=== PATIENT | female | born 1970 | race Caucasian/White ===

== ENCOUNTER 2019-02-14 11:20 | Emergency (ER) | payer SELFPAY ==
[2019-02-14] MEDS ORDERED: NA CHLORIDE 0.9% 1,000 ML ONE (12:09)
--- NOTE | 2019-02-14 12:15 | RAD REPORT ---
EXAM DESCRIPTION: CT - Head Brain Wo Cont - 02/14/2019 12:06 pm CLINICAL HISTORY: Transient alteration of awareness COMPARISON: September 2017 TECHNIQUE: Axial 5 mm thick images of the head were obtained without IV contrast. All CT scans are performed using dose optimization technique as appropriate and may include automated exposure control or mA/KV adjustment according to patient size. FINDINGS: No intracranial hemorrhage, mass, edema or shift of mid-line structures. No acute infarcti on changes seen. No abnormal extra-axial fluid collections. Ventricles are normal. Mastoid air cells and visualized portions of the paranasal sinuses are clear. No acute bony findings. IMPRESSION: Negative non-contrast CT head examination for acute finding No change from prior imaging.
[2019-02-14 12:18] LABS: Absolute Lymphocytes (CBC) 1.9 K/uL (0.7-4.9); Absolute Monocytes 0.4 K/uL (0.1-1.3); Basophils % 0.7 % (0-1.3); Eosinophils % 1.8 % (0-4.4); Hematocrit 38.2 % (36.0-45.0); Lymphocytes % 25.8 % (15.3-44.8); MPV 7.1 fL (7.6-11.3); RBC Red Blood Cell Count 4.34 M/uL (3.86-4.86)
[2019-02-14 12:19] LABS: Protime INR 0.98
[2019-02-14 12:37] LABS: ALT/SGPT 18 U/L (12-78); AST/SGOT 12 U/L (15-37); Albumin 3.9 g/dL (3.4-5.0); Alkaline Phosphatase 83 U/L (45-117); BUN Blood Urea Nitrogen 8 mg/dL (7-18); Bicarbonate 26 mmol/L (21-32); Bilirubin Direct < 0.1 mg/dL (0-0.2); Bilirubin Total 0.2 mg/dL (0.2-1.0); Glucose Level 95 mg/dL (74-106); Lipase 163 U/L (73-393); Magnesium 2.2 mg/dL (1.8-2.4); NT PRO-BNP 9 pg/mL (<125); Protein, Total 7.9 g/dL (6.4-8.2); Sodium Level 147 mmol/L (136-145); Troponin (Emerg Dept Use Only) < 0.02 ng/mL (0.0-0.045)
[2019-02-14 12:40] LABS: Urine Blood NEGATIVE (NEG); Urine Glucose NEGATIVE (NEG); Urine Protein NEGATIVE (NEG)
--- NOTE | 2019-02-14 13:08 | RAD REPORT ---
EXAM DESCRIPTION: RAD - Chest Single View - 02/14/2019 1:01 pm CLINICAL HISTORY: COUGH Chest pain. COMPARISON: Chest Single View dated 09/24/2017; CHEST SINGLE VIEW dated 06/29/2012; CHEST SINGLE VIEW d ated 12/04/2011; CHEST SINGLE VIEW dated 08/26/2011 FINDINGS: Portable technique limits examination quality. The lungs are underinflated but grossly clear. The heart is normal in size. No displaced fractures. IMPRESSION: Underinflated lungs.
[2019-02-14 13:10] LABS: Barbiturates NEGATIVE (NEGATIVE); Benzodiazepines NEGATIVE (NEGATIVE); Cocaine NEGATIVE (NEGATIVE); METHAMPHETAM NEGATIVE (NEGATIVE); Methadone NEGATIVE (NEGATIVE); Opiates NEGATIVE (NEGATIVE); Phencyclidine NEGATIVE (NEGATIVE); THC Cannibis NEGATIVE (NEGATIVE)
--- NOTE | 2019-02-14 13:26 | EDPHYS ---
Physician Documentation [facility] Name: Tiffany Quinn Age: 48 yrs Sex: Female : 1970 Arrival Date: 02/14/2019 Time: 11:21 Bed 3 Private MD: ED Physician Bill Palm HPI: 02/14 11:49 This 48 yrs old Female presents to ER via Wheelchair with complaints of Psych jo Problem. 11:49 The patient presents to the emergency department with anxiety, depression, psychosis, jo has delusions. Onset: The symptoms/episode began/occurred this morning, today. Past psychiatric history: Prior diagnosis: schizophrenia, Psychiatric medications include: lithium , Risperdal, benadryl. Associated signs and symptoms: The patient has no apparent associated signs or symptoms. Severity of symptoms: At their worst the symptoms were mild moderate in the emergency department the symptoms are unchanged. The patient has not experienced similar symptoms in the past. 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 tw2 Historical: - Allergies: 11:38 Phenergan; iw 11:38 Stadol; iw - Home Meds: 11:58 Banophen 50 mg oral cap nightly [Active]; lithium carbonate 450 mg Oral TbER 1 tab 2 iw times per day [Active]; risperidone 4 mg oral tab nightly [Active]; - PMHx: 11:38 ADD/ADHD; Migraines; PSYCH PROBLEMS; Schizophrenia; iw - Immunization history:: Adult Immunizations unknown. - Social history:: Smoking status: unknown. - Ebola Screening: : Patient negative for fever greater than or equal to 101.5 degrees Fahrenheit, and additional compatible Ebola Virus Disease symptoms Patient denies exposure to infectious person Patient denies travel to an Ebola-affected area in the 21 days before illness onset No symptoms or risks identified at this time. ROS: 11:51 Constitutional: Negative for fever, chills, and weight loss, Eyes: Negative for injury, jo pain, redness, and discharge, ENT: Negative for injury, pain, and discharge, Neck: Negative for injury, pain, and swelling, Cardiovascular: Negative for chest pain, palpitations, and edema, Respiratory: Negative for shortness of breath, cough, wheezing, and pleuritic chest pain, Abdomen/GI: Negative for abdominal pain, nausea, vomiting, diarrhea, and constipation, Back: Negative for injury and pain, : Negative for injury, bleeding, discharge, and swelling, MS/Extremity: Negative for injury and deformity, Skin: Negative for injury, rash, and discoloration, Psych: Negative for depression, anxiety, suicide ideation, homicidal ideation, and hallucinations, Allergy/Immunology: Negative for hives, rash, and allergies, Endocrine: Negative for neck swelling, polydipsia, polyuria, polyphagia, and marked weight changes, Hematologic/Lymphatic: Negative for swollen nodes, abnormal bleeding, and unusual bruising. 11:51 Neuro: Positive for altered mental status, weakness. Exam: 11:51 Constitutional: This is a well developed, well nourished patient who is awake, alert, jo and in no acute distress. Head/Face: Normocephalic, atraumatic. Eyes: Pupils equal round and reactive to light, extra-ocular motions intact. Lids and lashes normal. Conjunctiva and sclera are non-icteric and not injected. Cornea within normal limits. Periorbital areas with no swelling, redness, or edema. ENT: Nares patent. No nasal discharge, no septal abnormalities noted. Tympanic membranes are normal and external auditory canals are clear. Oropharynx with no redness, swelling, or masses, exudates, or evidence of obstruction, uvula midline. Mucous membranes moist. Neck: Trachea midline, no thyromegaly or masses palpated, and no cervical lymphadenopathy. Supple, full range of motion without nuchal rigidity, or vertebral point tenderness. No Meningismus. Chest/axilla: Normal chest wall appearance and motion. Nontender with no deformity. No lesions are appreciated. Cardiovascular: Regular rate and rhythm with a normal S1 and S2. No gallops, murmurs, or rubs. Normal PMI, no JVD. No pulse deficits. Respiratory: Lungs have equal breath sounds bilaterally, clear to auscultation and percussion. No rales, rhonchi or wheezes noted. No increased work of breathing, no retractions or nasal flaring. Abdomen/GI: Soft, non-tender, with normal bowel sounds. No distension or tympany. No guarding or rebound. No evidence of tenderness throughout. Back: No spinal tenderness. No costovertebral tenderness. Full range of motion. Female : Normal external genitalia. Skin: Warm, dry with normal turgor. Normal color with no rashes, no lesions, and no evidence of cellulitis. MS/ Extremity: Pulses equal, no cyanosis. Neurovascular intact. Full, normal range of motion. Psych: Awake, alert, with orientation to person, place and time. Behavior, mood, and affect are within normal limits. 11:51 Neuro: Orientation: to person, place, Not oriented to time, situation, Mentation: slow to respond, confused, Memory: unable to test, Cranial nerves: grossly normal, is grossly normal based on the patient's age, no acute changes, Motor: is normal, Sensation: no acute changes, Gait: not tested. seizure activity, is not displayed by the patient. Vital Signs: 11:48 BP 124 / 76; Pulse 90; Resp 16 S; Temp 98.0; Pulse Ox 98% on R/A; iw 12:50 BP 107 / 76; Pulse 99; Resp 17; Pulse Ox 98% on R/A; tw2 13:50 BP 96 / 66; Pulse 72; Resp 17; Pulse Ox 98% on R/A; tw2 14:42 BP 92 / 62; Pulse 77; Resp 17; Pulse Ox 99% on R/A; tw2 16:02 BP 101 / 65; Pulse 72; Resp 17; Pulse Ox 99% on R/A; tw2 MDM: 11:35 Patient medically screened. [facility] 11:52 Data reviewed: vital signs, nurses notes, lab test result(s), EKG, radiologic studies, [facility] CT scan, plain films. 02/14 11:49 Order name: Basic Metabolic Panel; Complete Time: 13:20 [facility] 02/14 11:49 Order name: CBC with Diff; Complete Time: 13:20 [facility] 02/14 11:49 Order name: LFT's; Complete Time: 13:20 [facility] 02/14 11:49 Order name: Magnesium; Complete Time: 13:20 [facility] 02/14 11:49 Order name: NT PRO-BNP; Complete Time: 13:20 [facility] 02/14 11:49 Order name: PT-INR; Complete Time: 13:20 [facility] 02/14 11:49 Order name: Troponin (emerg Dept Use Only); Complete Time: 13:20 [facility] 02/14 11:49 Order name: Lipase; Complete Time: 13:20 [facility] 02/14 11:49 Order name: Blood Culture Adult (2) 02/14 11:49 Order name: Urine Culture 02/14 11:49 Order name: [place]; Complete Time: 13:20 [facility] 02/14 12:09 Order name: Acetaminophen; Complete Time: 13:20 [facility] 02/14 12:09 Order name: ETOH Level; Complete Time: 13:20 02/14 12:09 Order name: Ptt, Activated; Complete Time: 13:20 [facility] 02/14 11:49 Order name: XRAY Chest (1 view); Complete Time: 13:20 [facility] 02/14 11:49 Order name: EKG; Complete Time: 11:50 [facility] 02/14 11:49 Order name: Cardiac monitoring; Complete Time: 13:57 [facility] 02/14 11:49 Order name: EKG - Nurse/Tech; Complete Time: 13:57 [facility] 02/14 11:49 Order name: IV Saline Lock; Complete Time: 13:57 02/14 11:49 Order name: Labs collected and sent; Complete Time: 13:57 [facility] 02/14 11:49 Order name: CT Head Brain wo Cont; Complete Time: 13:20 [facility] 02/14 12:09 Order name: Salicylate; Complete Time: 13:20 [facility] 02/14 12:09 Order name: Urine Drug Screen; Complete Time: 13:20 [facility] 02/14 12:12 Order name: Urine Dipstick--Ancillary (enter results); Complete Time: 13:20 02/14 12:12 Order name: Urine --Ancillary (enter results); Complete Time: 13:20 02/14 11:49 Order name: O2 Per Protocol; Complete Time: 13:57 [facility] 02/14 11:49 Order name: O2 Sat Monitoring; Complete Time: 13:59 [facility] 02/14 11:49 Order name: Urine Dipstick-Ancillary (obtain specimen); Complete Time: 13:58 [facility] 02/14 13:58 Order name: Straight Cath - Urine; Complete Time: 13:58 tw2 Administered Medications: 12:00 Drug: NS 0.9% 1000 ml Route: IV; Rate: 125 ml/hr; Site: right jugular; tw2 17:10 Follow up: Response: No adverse reaction; IV Status: Order to discontinue infusion tw2 13:19 Drug: Ativan 1 mg Route: IVP; Site: right jugular; tw2 14:20 Follow up: Response: No adverse reaction; Anxiety decreased tw2 14:29 Follow up: Response: No adverse reaction iw 13:50 Drug: Thiamine 100 mg Route: IV; Rate: bolus; Site: right jugular; tw2 13:55 Follow up: Response: No adverse reaction; IV Status: Completed infusion tw2 14:10 Drug: Banana Bag - (NS 0.9% 1000 ml, foLIC Acid 1 mg, Thiamine 100 mg, Multivitamin 1 tw2 amp) Route: IV; Rate: 125 ml/hr; Site: right jugular; 17:10 Follow up: Response: No adverse reaction; IV Status: Order to discontinue infusion tw2 15:22 Drug: Ativan 1 mg Route: IVP; Site: right jugular; tw2 16:00 Follow up: Response: No adverse reaction; Anxiety decreased tw2 Disposition: 02/14/19 14:53 Discharged to Home. Impression: Alcohol abuse with intoxication, Altered mental status, unspecified, Schizophrenia. - Condition is Stable. - Discharge Instructions: Alcohol Intoxication, Confusion, Schizophrenia, Alcohol Intoxication, [id number], Alcohol Abuse and Nutrition. - Medication Reconciliation Form, Thank You Letter, Antibiotic Education, Prescription Opioid Use form. - Follow up: Private Physician; When: 1 - 2 days; Reason: Recheck today's complaints, Continuance of care, Re-evaluation by your physician. - Problem is new. - Symptoms have improved. Signatures: Dispatcher [employer] EDMS Bill Palm MD MD cha Williams, Irene, RN RN iw Angelita Jain RN RN tw2 Corrections: (The following items were deleted from the chart) 14:50 13:26 Hospitalization Ordered by Karmen Hoffmann MD for Observation. Preliminary diagnosis jo is Altered mental status, unspecified; Schizophrenia; Alcohol abuse with intoxication. Bed requested for Telemetry/MedSurg (observation). Status is Observation. Condition is Fair. Problem is new. Symptoms have improved. UTI on Admission? No. jo 17:22 14:53 02/14/2019 14:53 Discharged to Home. Impression: Alcohol abuse with intoxication; tw2 Altered mental status, unspecified; Schizophrenia. Condition is Stable. Discharge Instructions: Alcohol Intoxication, Confusion, Schizophrenia, Alcohol Intoxication, [id number], Alcohol Abuse and Nutrition. Forms are Medication Reconciliation Form, Thank You Letter, Antibiotic Education, Prescription Opioid Use. Follow up: Private Physician; When: 1 - 2 days; Reason: Recheck today's complaints, Continuance of care, Re-evaluation by your physician. Problem is new. Symptoms have improved. jo
--- NOTE | 2019-02-14 13:26 | ER ---
Nurse's Notes [facility] Name: Tiffany Quinn Age: 48 yrs Sex: Female : 1970 Arrival Date: 02/14/2019 Time: 11:21 Bed 3 Private MD: Diagnosis: Alcohol abuse with intoxication;Altered mental status, unspecified;Schizophrenia Presentation: 02/14 11:32 Presenting complaint: Mother states: pt defecated on herself and isn't talking, pt iw arrives to ER via private vehicle, assisted out of vehicle, pt able to get herself into wheelchair, pt states she was in rehab to "try to get her meds fixed" about a month ago, was started on psych meds, has been feeling empty inside, pt tearful, not answering anymore questions. Transition of care: patient was not received from another setting of care. Onset of symptoms was February 14, 2019. Risk Assessment:. Initial Sepsis Screen: Does the patient meet any 2 criteria? No. Patient's initial sepsis screen is negative. Does the patient have a suspected source of infection? No. Patient's initial sepsis screen is negative. Care prior to arrival: None. 11:32 Method Of Arrival: Wheelchair iw 11:32 Acuity: MANUEL 3 iw 11:33 Risk Assessment: Do you want to hurt yourself or someone else? Patient reports no tw2 desire to harm self or others. 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 tw2 Historical: - Allergies: 11:38 Phenergan; iw 11:38 Stadol; iw - Home Meds: 11:58 Banophen 50 mg oral cap nightly [Active]; lithium carbonate 450 mg Oral TbER 1 tab 2 iw times per day [Active]; risperidone 4 mg oral tab nightly [Active]; - PMHx: 11:38 ADD/ADHD; Migraines; PSYCH PROBLEMS; Schizophrenia; iw - Immunization history:: Adult Immunizations unknown. - Social history:: Smoking status: unknown. - Ebola Screening: : Patient negative for fever greater than or equal to 101.5 degrees Fahrenheit, and additional compatible Ebola Virus Disease symptoms Patient denies exposure to infectious person Patient denies travel to an Ebola-affected area in the 21 days before illness onset No symptoms or risks identified at this time. Screenin:42 Abuse screen: Denies threats or abuse. Nutritional screening: No deficits noted. tw2 Tuberculosis screening: No symptoms or risk factors identified. Fall Risk Secondary diagnosis (15 points). Assessment: 11:35 General: Appears in no apparent distress. Behavior is crying, pt will answer questions tw2 with limited short answers. Pain: Unable to use pain scale. Patient appears to be crying. Neuro: Level of Consciousness is obeys commands, Oriented to person. Cardiovascular: Heart tones S1 S2 Patient's skin is warm and dry. Respiratory: Airway is patent Respiratory effort is even, unlabored, Respiratory pattern is regular, symmetrical, Breath sounds are clear bilaterally. GI: No signs and/or symptoms were reported involving the gastrointestinal system. Abdomen is flat, Bowel sounds present X 4 quads. : No signs and/or symptoms were reported regarding the genitourinary system. EENT: No signs and/or symptoms were reported regarding the EENT system. Derm: No signs and/or symptoms reported regarding the dermatologic system. Musculoskeletal: Circulation, motion, and sensation intact. Range of motion: intact in all extremities. 12:35 Reassessment: Patient appears in no apparent distress at this time. No changes from tw2 previously documented assessment. Patient and/or family updated on plan of care and expected duration. Pain level reassessed. 13:15 Reassessment: pt c/o "i feel anxious, can i get something for my anxiety". tw2 14:00 Reassessment: Patient appears in no apparent distress at this time. Patient and/or tw2 family updated on plan of care and expected duration. Pain level reassessed. Patient states symptoms have improved. 14:42 Reassessment: Patient appears in no apparent distress at this time. Patient and/or tw2 family updated on plan of care and expected duration. Pain level reassessed. pt appears to be sleeping. 14:50 Reassessment: per Dr. Palm, call pts family and have them come get her for tw2 discharge, number on file [phone] had a full mail box and I was unable to leave a message. pt gave ph#[phone] as well, no answer at this time, message left. 15:22 Reassessment: Patient appears in no apparent distress at this time. pt states "can i tw2 get something for anxiety", medicated as ordered. 15:24 Reassessment: pts mother called at [phone], she states "she has to stay she has tw2 brain damage", pts mother educated as to the results and doctors discharge order, pts mother states "oh ok, i have to come from [place] but i will come that way". 16:08 Reassessment: Patient appears in no apparent distress at this time. pt requests to sit tw2 in WC at this time to wait for mothers arrival, pt placed in WC at this time, registration notified to call us as soon as the pts mother arrives. 16:25 Reassessment: pts mother called and states she got turned around and is on here way. tw2 17:12 Reassessment: Patient appears in no apparent distress at this time. No changes from tw2 previously documented assessment. Patient and/or family updated on plan of care and expected duration. Pain level reassessed. Vital Signs: 11:48 BP 124 / 76; Pulse 90; Resp 16 S; Temp 98.0; Pulse Ox 98% on R/A; iw 12:50 BP 107 / 76; Pulse 99; Resp 17; Pulse Ox 98% on R/A; tw2 13:50 BP 96 / 66; Pulse 72; Resp 17; Pulse Ox 98% on R/A; tw2 14:42 BP 92 / 62; Pulse 77; Resp 17; Pulse Ox 99% on R/A; tw2 16:02 BP 101 / 65; Pulse 72; Resp 17; Pulse Ox 99% on R/A; tw2 ED Course: 11:21 Patient arrived in ED. iw 11:33 Bed in low position. Call light in reach. Side rails up X2. 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 Pulse tw2 ox on. NIBP on. Warm blanket given. 11:35 Bill Palm MD is Attending Physician. jo 11:37 Triage completed. iw 11:38 Arm band placed on. iw 11:40 Angelita Jain RN is Primary Nurse. tw2 12:00 Inserted saline lock: 20 gauge in right EJ, using aseptic technique. ,using aseptic tw2 technique. per Dr. Palm Blood collected. 12:05 CT Head Brain wo Cont In Process Unspecified. EDMS 12:18 Urine collected: straight cath specimen, clear. kj1 13:01 XRAY Chest (1 view) In Process Unspecified. EDMS 13:23 Hoffmann, Poyani, MD is Hospitalizing Provider. jo 17:13 No provider procedures requiring assistance completed. IV discontinued, intact, tw2 bleeding controlled, No redness/swelling at site. Pressure dressing applied. Administered Medications: 12:00 Drug: NS 0.9% 1000 ml Route: IV; Rate: 125 ml/hr; Site: right jugular; tw2 17:10 Follow up: Response: No adverse reaction; IV Status: Order to discontinue infusion tw2 13:19 Drug: Ativan 1 mg Route: IVP; Site: right jugular; tw2 14:20 Follow up: Response: No adverse reaction; Anxiety decreased tw2 14:29 Follow up: Response: No adverse reaction iw 13:50 Drug: Thiamine 100 mg Route: IV; Rate: bolus; Site: right jugular; tw2 13:55 Follow up: Response: No adverse reaction; IV Status: Completed infusion tw2 14:10 Drug: Banana Bag - (NS 0.9% 1000 ml, foLIC Acid 1 mg, Thiamine 100 mg, Multivitamin 1 tw2 amp) Route: IV; Rate: 125 ml/hr; Site: right jugular; 17:10 Follow up: Response: No adverse reaction; IV Status: Order to discontinue infusion tw2 15:22 Drug: Ativan 1 mg Route: IVP; Site: right jugular; tw2 16:00 Follow up: Response: No adverse reaction; Anxiety decreased tw2 Outcome: 13:26 Decision to Hospitalize by Provider. jo 14:53 Discharge ordered by . jo 17:13 Discharged to home via wheelchair, with family. tw2 17:13 Condition: stable 17:13 Discharge instructions given to patient, family, Instructed on discharge instructions, follow up and referral plans. Demonstrated understanding of instructions, follow-up care. 17:22 Patient left the ED. tw2 Signatures: Dispatcher [employer] EDFL Bill Palm MD MD cha Williams, Irene RN JIGNA iw Angelita Jain RN RN tw2 Corazon Ledezma kj1 Corrections: (The following items were deleted from the chart) 13:41 12:35 Reassessment: Patient appears in no apparent distress at this time. No changes tw2 from previously documented assessment. Patient and/or family updated on plan of care and expected duration. Pain level reassessed. Patient is alert, oriented x 3, equal unlabored respirations, skin warm/dry/pink. tw2 14:29 Response: No adverse reaction iw iw 14:54 14:50 Reassessment: per Dr. Palm, call pts family and have them come get her for tw2 discharge, number on file had a full mail box and I was unable to leave a message. pt gave ph#[phone] as well, no answer at this time, message left. tw2
[2019-02-14] MEDS ORDERED: LORazepam 2 MG/ML VIAL ONE (13:28)
[2019-02-14] MEDS ORDERED: THIAMINE 200 MG/2 ML INJ ONE (13:57)
[2019-02-14] MEDS ORDERED: FOLIC ACID 1 MG, MULTIVITAMINS INJ 10 ML, THIAMINE HCL 100 MG in NA CHLORIDE 0.9% 1,000 ML IV ONE (14:00)
--- NOTE | 2019-02-14 14:57 | EKG ---
Test Date: 2019-02-14 Test Time: 13:21:19 Core Mounter: YINKA MEASUREMENT RESULTS: Intervals: Rate: 89 MA: 170 QRSD: 88 QT: 392 QTc: 476 [place]: P: 33 MA: 170 QRS: -16 T: 48 INTERPRETIVE STATEMENTS: Normal sinus rhythm Cannot rule out Anterior infarct, age undetermined Abnormal ECG Compared to ECG 09/25/2017 00:11:35 Myocardial infarct finding now present Electronically Signed On 02-14-19 14:56:40 CDT by Tito Smiley
[2019-02-14 17:36] VITALS: TEMP 98
[2019-02-14 17:39] VITALS: O2SAT 99
[2019-02-14 17:41] VITALS: BP 101/65
== END 2019-02-14 17:22 | disposition home or self-care (01) ==
LOC: ER 11:20
DX: F20.9 Schizophrenia, unspecified (principal); F10.120 Alcohol abuse with intoxication, uncomplicated; R41.82 Altered mental status, unspecified; F90.9 Attention-deficit hyperactivity disorder, unspecified type; Z88.5 Allergy status to narcotic agent; Z88.8 Allergy status to other drugs, medicaments and biological substances
CPT/HCPCS: 36415; 70450; 71045; 80048; 80076; 80178; 80307; 80320; 80329; 81003; 81025; 83690; 83735; 83880; 84484; 85025; 85610; 85730; 87040; 87086; 87088; 93005; 96361; 96365; 96366; 96375; 99284; J3411; J7030

== ENCOUNTER 2019-10-16 19:32 | Observation (INO) | payer OTHER, SELFPAY ==
--- OUTSIDE RECORDS SUMMARY | 2019-10-16 19:35 | XMS REPORT ---
:1970 [facility] [address] [place] [address] Care Team Providers Name Role Phone UNKNOWN, REFFERING Primary Care Provider Unavailable LINDY MADISON Unavailable Unavailable Problems This patient has no known problems. Allergies, Adverse Reactions, Alerts This patient has no known allergies or adverse reactions. Medications This patient has no known medications. Encounters Start End Encounter Admission Attending Care Care Encounter Date/Time Date/Time Type Type Clinicians Facility Department ID 2019-01-22 Inpatient E [facility] [id number] 04:39:00 2018-02-21 2018-02-20 Inpatient E [facility] [id number] 14:48:00 13:18:00 LINDY Results Test Description Test Time Test Comments Text Results Atomic Results Result Comments [id number] 2018-02-20 14:36:00 Test Item Value Reference Range Comments Amphetamine (test code=AMPH) POSITIVE Negative For diagnostic purposes only, positive results should always be assessedin conjunctionwith the patient's medical history,clinical examination and otherfindings.To fulfill legal requirements, a more specific alternate chemical methodmust be used inorder to obtain a Confirmed analytical result. GC/MS is the preferred confirmatory method. Barbiturates (test code=AKIKO) Negative Negative Benzodiazepine (test code=FINA) Negative Negative Cocaine (test code=COCA) Negative Negative Methadone (test code=MTHD) Negative Negative Opiates (test code=OPIA) Negative Negative PCP (test code=PCP) Negative Negative Propoxyphene (test code=PROPOX) Negative Negative THC (test code=THC) Negative Negative Alcohol, Urine (test <0.01 g/dL 0.00-0.01 code=ETOHU) Comprehensive Metabolic [id number] 14:36:00 Test Item Value Reference Range Comments Sodium (test code=NA) 139 mmol/L 135-145 Potassium (test code=K) 4.6 mmol/L 3.5-5.1 Chloride (test code=CL) 100 mmol/L 98-105 Carbon Dioxide (test 24 mmol/L 22-29 code=CO2) Glucose (test code=GLU) 94 mg/dL 70-115 Blood Urea Nitrogen 18 mg/dL 6-20 (test code=BUN) Creatinine (test 0.6 mg/dL 0.5-0.9 code=CREAT) Calcium (test code=CA) 9.4 mg/dL 8.3-10.5 Prot Total (test 7.2 g/dL 6.4-8.3 code=TP) Albumin (test code=ALB) 4.6 g/dL 3.5-5.2 A/G Ratio (test 1.8 Ratio code=AGRATIO) Globulin (test 2.6 2.9-3.1 code=GLOB) Bili Total (test 0.2 mg/dL 0.1-0.9 code=TBIL) Alk Phos (test 80 U/L 35-104 code=APHOS) AST (test code=AST) 16 U/L 1-32 ALT (test code=ALT) 13 U/L 1-33 BUN/Creatinine Ratio 30.0 (test code=BCRATIO) Anion Gap (test 15 mmol/L 7-16 code=AGAP) Estimated GFR (test >60 mL/min/1.73m2 eGFR (estimated Glomerular code=GFR) Filtration Rate) is an estimated value,calculated from the patient's serum creatinine using the MDRD equation.It is NOT the patient's actual GFR. The eGFR provides a more clinicallyuseful measure of kidney disease than serum creatinine alone.This calculation takes sex and race into account, if the informationis provided. If the race is not provided, and the patient isAfrican-[place], multiply by 1.212. If sex is not provided, and thepatient is female, multiply by 0.742. Results for patients <18 years ofage have not been validated by the MDRD study and should be interpretedwith caution.eGFR Result Interpretation:eGFR > or=60 is in the Normal RangeeGFR < 60 may mean kidney diseaseeGFR < 15 may mean kidney failureRanges recommended by the National Kidney Foundation,http://nkdep.nih .gov Urinalysis [id number] 14:32:00 Test Item Value Reference Range Comments Color (test code=COLOR) Yellow Yellow,Straw,Pl yellow Clarity (test code=CLAR) Clear Clear Specific Sacul (test code=SPGR) 1.024 1.001-1.035 pH (test code=PH) 7.0 5.0-9.0 Ketone (test code=KET) Negative mg/dL Negative Glucose (test code=GLUCUR) Negative mg/dL Negative Protein (test code=PROT) Negative mg/dL Negative Bilirubin (test code=BILI) Negative mg/dL Negative Occult Blood (test code=UDOB) Negative Negative Urobilinogen (test code=UROB) 0.2 mg/dL 0.2-1.0 Nitrite (test code=NIT) Negative Negative Leuk Esterase (test code=LEUK) Small Negative Micros Exam (test code=MEXAM) Indicated Epithelial Cells (test code=EPI) 3-5 /LPF 0-30 WBC, Urine (test code=UWBC) 0-2 /HPF 0-5 RBC, Urine (test code=URBC) None Seen /HPF 0-5 Bacteria (test code=BACT) Few /HPF CBC with [id number] 14:21:00 Test Item Value Reference Range Comments WBC (test code=WBC) 8.8 K/cumm 4.4-10.5 RBC (test code=RBC) 4.65 M/cumm 3.75-5.20 Hemoglobin (test code=HGB) 12.8 gm/dL 12.2-14.8 Hematocrit (test code=HCT) 40.5 % 36.5-44.4 MCV (test code=MCV) 87.1 fL 80-100 MCH (test code=MCH) 27.6 pg 27.0-32.5 MCHC (test code=MCHC) 31.7 g/dL 32.0-37.5 RDW (test code=RDW) 13.3 % 11.5-14.5 Platelet Count (test code=PLTCT) 464 K/cumm 140-440 MPV (test code=MPV) 9.7 fL Diff Method (test code=DIFFM) Auto Neutrophil (test code=NEUT) 57.2 % 36-70 Lymphocyte (test code=LYMPH) 33.9 % 12-44 Monocyte (test code=MONO) 6.1 % 0-11 Eosinophil (test code=EOS) 2.2 % 0-7 Basophil (test code=BASO) 0.6 % 0-2 Neutro Abs (test code=ANEUT) 5.0 K/cumm 1.6-7.4 Lymph Abs (test code=ALYMPH) 3.0 K/cumm 0.5-4.6 [facility] Abs (test code=AMONO) 0.5 K/cumm 0.0-1.2 Eos Abs (test code=AEOS) 0.19 K/cumm 0.00-0.74 Baso Abs (test code=ABASO) 0.1 K/cumm 0.00-0.21
[2019-10-16] MEDS ORDERED: ONDANSETRON 4 MG (ODT) TAB ONE (19:40)
[2019-10-16] MEDS ORDERED: ONDANSETRON 4 MG/2 ML VIAL ONE (20:00)
[2019-10-16] MEDS ORDERED: FAMOTIDINE 20 MG/2 ML VIAL IV ONE (20:01)
[2019-10-16] MEDS ORDERED: NA CHLORIDE 0.9% 2,000 ML ONE (20:01)
--- NOTE | 2019-10-16 20:03 | ER ---
Nurse's Notes [facility] Name: Tiffany Quinn Age: 49 yrs Sex: Female : 1970 Arrival Date: 10/16/2019 Time: 19:36 Bed 24 Private MD: Diagnosis: Vomiting;Diarrhea, unspecified;Weakness;Fever, unspecified;Schizophrenia;Elevated white blood cell count;Unspecified kidney failure Presentation: 10/16 19:50 Presenting complaint: EMS states: pt found in bath tub covered in vomiting, urine and ak1 stool. pt c/o N/V for "a couple hours" EMS stated pt uses her fingers to induce vomiting. pt roommate stated to EMS that pt is a recovering addict. Transition of care: patient was not received from another setting of care. Onset of symptoms was October 16, 2019. Risk Assessment: Do you want to hurt yourself or someone else? Patient reports no desire to harm self or others. Initial Sepsis Screen: Does the patient meet any 2 criteria? Does the patient have a suspected source of infection?. Care prior to arrival: None. 19:50 Method Of Arrival: EMS: [facility] ak1 19:50 Acuity: MANUEL 3 ak1 Triage Assessment: 19:57 General: Appears in no apparent distress. pale. Behavior is cooperative. Pain: ak1 Complains of pain in abdomen. GI: Reports lower abdominal pain, upper abdominal pain, nausea, vomiting. 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 - Social history:: Smoking status: Patient/guardian denies using tobacco, Patient/guardian denies using alcohol, street drugs. - Ebola Screening: : No symptoms or risks identified at this time. - Family history:: not pertinent. Screenin:30 Abuse screen: Denies threats or abuse. Denies injuries from another. Nutritional lp1 screening: No deficits noted. Tuberculosis screening: No symptoms or risk factors identified. Fall Risk Total Ramirez Fall Scale indicates High Risk Score (45 or more points). Fall prevention measures have been instituted. Side Rails Up X 2 As available patient and family educated on Fall Prevention Program and Strategies. Assessment: 20:00 General: Appears ill, unkempt, Behavior is cooperative. Pain: Complains of pain in head lp1 Pain currently is 6 out of 10 on a pain scale. Quality of pain is described as aching. Neuro: Level of Consciousness is awake, alert, obeys commands, Oriented to person, place, situation. Cardiovascular: Patient's skin is warm and dry. Respiratory: Respiratory effort is even, Breath sounds are clear bilaterally. GI: Abdomen is non-distended, Bowel sounds present X 4 quads. Reports diarrhea, nausea, vomiting. : No signs and/or symptoms were reported regarding the genitourinary system. EENT: No signs and/or symptoms were reported regarding the EENT system. Derm: Skin is intact, Skin is dry, Skin is pale. Musculoskeletal: No deficits noted. 20:28 Reassessment: Patient states continued nausea, gagging, observed sticking fingers down lp1 throat; educated on not inducing vomiting; States "I'm sorry, I just feel so sick to my stomach". 21:21 Reassessment: Patient in CT at this time. lp1 21:45 Reassessment: Assisted patient to bsc; Noted to express flight of ideas, speaking fast. lp1 22:30 Reassessment: Patient appears in no apparent distress at this time. Patient and/or lp1 family updated on plan of care and expected duration. Pain level reassessed. Patient resting, eyes closed, respirations unlabored. 23:37 Reassessment: Patient aware of admission; Continues to express flight of ideas, remains lp1 cooperative. Vital Signs: 19:58 BP 105 / 74; Pulse 101; Resp 18; Temp 100(O); Pulse Ox 100% on R/A; Weight 68.04 kg ak1 (R); Height 5 ft. 2 in. (157.48 cm) (R); Pain 8/10; 21:00 BP 101 / 65; Pulse 87; Resp 20; Pulse Ox 100% on R/A; lp1 22:00 BP 112 / 71; Pulse 77; Resp 20; Pulse Ox 100% on R/A; lp1 22:30 BP 110 / 70; Pulse 78; Resp 20; Pulse Ox 99% on R/A; lp1 23:00 BP 112 / 60; Pulse 77; Resp 16; Pulse Ox 98% on R/A; lp1 23:36 BP 105 / 73; Pulse 85; Resp 15; Temp 99.8(O); Pulse Ox 99% on R/A; lp1 19:58 Body Mass Index 27.44 (68.04 kg, 157.48 cm) ak1 ED Course: 19:36 Patient arrived in ED. ds1 19:37 Bill Palm MD is Attending Physician. jo 19:50 Citlaly Albarran, JIGNA is Primary Nurse. ak1 19:52 Triage completed. ak1 19:55 Inserted saline lock: 18 gauge in left EJ, using aseptic technique. Blood collected. By lp1 Dr. Palm. 19:56 Lora Lozada, RN is Primary Nurse. lp1 19:58 Arm band placed on Patient placed in an exam room, on a stretcher, on playground monitor, ak1 on pulse oximetry, Patient notified of wait time. 20:00 Patient has correct armband on for positive identification. Placed in gown. Side rails lp1 up X2. panel monitor on. Pulse ox on. NIBP on. 20:01 Marcio Sorto MD is Hospitalizing Provider. jo 20:49 Notified ED physician of a critical lab result(s). 4.2 lactate. ak1 20:57 XRAY Chest (1 view) In Process Unspecified. EDMS 21:50 Straight cath inserted, using sterile technique, 16 Fr. Specimen obtained. lp1 23:06 No provider procedures requiring assistance completed. Patient admitted, IV remains in lp1 place. 10/17 17:15 Primary Nurse role handed off by Lora Lozada, RN sv Administered Medications: 10/16 19:39 Drug: Zofran 4 mg Route: PO; ak1 20:45 Follow up: Response: No change in condition lp1 20:07 Drug: NS 0.9% 1000 ml Route: IV; Rate: 1 bolus; Site: left jugular; lp1 22:01 Follow up: IV Status: Completed infusion; IV Intake: 1000ml lp1 20:08 Drug: Zofran 4 mg Route: IVP; Site: left jugular; lp1 20:45 Follow up: Response: No change in condition lp1 20:08 Drug: Pepcid 20 mg Route: IVP; Site: left jugular; lp1 21:00 Follow up: Response: No adverse reaction lp1 21:00 Drug: Phenergan 12.5 mg Route: IVP; Site: left jugular; ak1 22:30 Follow up: Response: Marked relief of symptoms lp1 21:45 Drug: Tylenol Suppository 650 mg Route: ND; lp1 23:38 Follow up: Response: Temperature is decreased lp1 22:01 Drug: NS 0.9% 1000 ml Route: IV; Rate: 1 bolus; Site: left jugular; lp1 23:30 Follow up: IV Status: Completed infusion; IV Intake: 1000ml lp1 23:15 Drug: Rocephin 1 grams Route: IV; Rate: per protocol; Site: left jugular; lp1 23:39 Follow up: IV Status: Completed infusion; IV Intake: 10ml lp1 23:30 Drug: NS 0.9% 1000 ml Route: IV; Rate: 125 ml/hr; Site: left jugular; lp1 23:40 Follow up: IV Status: Infusion continued upon admission lp1 Intake: 22:01 IV: 1000ml; Total: 1000ml. lp1 23:30 IV: 1000ml; Total: 2000ml. lp1 23:39 IV: 10ml; Total: 2010ml. lp1 Outcome: 20:02 Decision to Hospitalize by Provider. [facility] 23:36 Admitted to ER Hold. Please see [facility] for further documentation. lp1 23:36 Condition: stable 23:36 Instructed on the need for admit. 10/17 17:46 Patient left the ED. fc Signatures: Dispatcher [employer] EDJulissa Rhodes RN RN sv Anderson, Corey, MD MD cha Chretien, Felicia, RN RN Neelima Rivera Lora Umaña RN RN [facility] Citlaly Albarran RN RN ak1 Corrections: (The following items were deleted from the chart) 10/16 21:20 19:57 Allergies: Phenergan; ak1 lp1 10/17 04:47 10/16 19:50 Initial Sepsis Screen: Does the patient meet any 2 criteria? Does the lp1 patient have a suspected source of infection? ak1
--- NOTE | 2019-10-16 20:04 | EDPHYS ---
Physician Documentation [facility] Name: Tiffany Quinn Age: 49 yrs Sex: Female : 1970 Arrival Date: 10/16/2019 Time: 19:36 Bed 24 Private MD: ED Physician Bill Palm HPI: 10/16 19:55 This 49 yrs old Female presents to ER via EMS with complaints of jo Nausea/Vomiting. 19:55 The patient presents to the emergency department with nausea, vomiting, diarrhea, that jo is continuous. Onset: The symptoms/episode began/occurred today. Possible causes: unknown. The symptoms are aggravated by nothing. The symptoms are alleviated by nothing. Associated signs and symptoms: Pertinent positives: fever, nausea, vomiting. 19:57 Severity of symptoms: At their worst the symptoms were mild moderate in the emergency jo department the symptoms are unchanged. It is unknown whether or not the patient has had similar symptoms in the past. 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 - Social history:: Smoking status: Patient/guardian denies using tobacco, Patient/guardian denies using alcohol, street drugs. - Ebola Screening: : No symptoms or risks identified at this time. - Family history:: not pertinent. ROS: 19:57 Constitutional: Negative for fever, chills, and weight loss, Eyes: Negative for injury, jo pain, redness, and discharge, ENT: Negative for injury, pain, and discharge, Neck: Negative for injury, pain, and swelling, Cardiovascular: Negative for chest pain, palpitations, and edema, Respiratory: Negative for shortness of breath, cough, wheezing, and pleuritic chest pain, Back: Negative for injury and pain, : Negative for injury, bleeding, discharge, and swelling, MS/Extremity: Negative for injury and deformity, Skin: Negative for injury, rash, and discoloration, Psych: Negative for depression, anxiety, suicide ideation, homicidal ideation, and hallucinations, Allergy/Immunology: Negative for hives, rash, and allergies, Endocrine: Negative for neck swelling, polydipsia, polyuria, polyphagia, and marked weight changes, Hematologic/Lymphatic: Negative for swollen nodes, abnormal bleeding, and unusual bruising. 19:57 Abdomen/GI: Positive for nausea and vomiting, diarrhea. 19:57 Psych: Positive for anxiety, depression. Exam: 19:57 Constitutional: This is a well developed, well nourished patient who is awake, alert, jo and in no acute distress. Head/Face: Normocephalic, atraumatic. Eyes: Pupils equal round and reactive to light, extra-ocular motions intact. Lids and lashes normal. Conjunctiva and sclera are non-icteric and not injected. Cornea within normal limits. Periorbital areas with no swelling, redness, or edema. ENT: Nares patent. No nasal discharge, no septal abnormalities noted. Tympanic membranes are normal and external auditory canals are clear. Oropharynx with no redness, swelling, or masses, exudates, or evidence of obstruction, uvula midline. Mucous membranes moist. Neck: Trachea midline, no thyromegaly or masses palpated, and no cervical lymphadenopathy. Supple, full range of motion without nuchal rigidity, or vertebral point tenderness. No Meningismus. Chest/axilla: Normal chest wall appearance and motion. Nontender with no deformity. No lesions are appreciated. Respiratory: Lungs have equal breath sounds bilaterally, clear to auscultation and percussion. No rales, rhonchi or wheezes noted. No increased work of breathing, no retractions or nasal flaring. Abdomen/GI: Soft, non-tender, with normal bowel sounds. No distension or tympany. No guarding or rebound. No evidence of tenderness throughout. Back: No spinal tenderness. No costovertebral tenderness. Full range of motion. Skin: Warm, dry with normal turgor. Normal color with no rashes, no lesions, and no evidence of cellulitis. MS/ Extremity: Pulses equal, no cyanosis. Neurovascular intact. Full, normal range of motion. Neuro: Awake and alert, GCS 15, oriented to person, place, time, and situation. Cranial nerves II-XII grossly intact. Motor strength 5/5 in all extremities. Sensory grossly intact. Cerebellar exam normal. Normal gait. Psych: Awake, alert, with orientation to person, place and time. Behavior, mood, and affect are within normal limits. 19:57 Cardiovascular: Rate: tachycardic, Rhythm: regular, Pulses: Pulses are 4+ in bilateral radial, brachial, femoral, popliteal, posterior tibial and and dorsalis pedis arteries.. Heart sounds: normal, Edema: is not appreciated, JVD: is not appreciated. Vital Signs: 19:58 BP 105 / 74; Pulse 101; Resp 18; Temp 100(O); Pulse Ox 100% on R/A; Weight 68.04 kg ak1 (R); Height 5 ft. 2 in. (157.48 cm) (R); Pain 8/10; 21:00 BP 101 / 65; Pulse 87; Resp 20; Pulse Ox 100% on R/A; lp1 22:00 BP 112 / 71; Pulse 77; Resp 20; Pulse Ox 100% on R/A; lp1 22:30 BP 110 / 70; Pulse 78; Resp 20; Pulse Ox 99% on R/A; lp1 23:00 BP 112 / 60; Pulse 77; Resp 16; Pulse Ox 98% on R/A; lp1 23:36 BP 105 / 73; Pulse 85; Resp 15; Temp 99.8(O); Pulse Ox 99% on R/A; lp1 19:58 Body Mass Index 27.44 (68.04 kg, 157.48 cm) ak1 Procedures: 20:00 Peripheral line: by aseptic technique a peripheral line was placed in the left external jo jugular vein. MDM: 19:37 Patient medically screened. [facility] 19:59 Data reviewed: vital signs, nurses notes, lab test result(s), EKG, radiologic studies, [facility] CT scan, plain films. 10/16 19:55 Order name: Basic Metabolic Panel; Complete Time: 20:52 [facility] 10/16 19:55 Order name: CBC with Diff; Complete Time: 20:51 [facility] 10/16 19:55 Order name: LFT's; Complete Time: 20:52 [facility] 10/16 19:55 Order name: Magnesium; Complete Time: 20:52 [facility] 10/16 19:55 Order name: NT PRO-BNP; Complete Time: 20:52 [facility] 10/16 19:55 Order name: PT-INR; Complete Time: 20:51 [facility] 10/16 19:55 Order name: Troponin (emerg Dept Use Only); Complete Time: 20:52 [facility] 10/16 19:55 Order name: Lipase; Complete Time: 20:52 [facility] 10/16 19:55 Order name: Blood Culture Adult (2) [facility] 10/16 19:55 Order name: Urine Culture [facility] 10/16 19:55 Order name: Lactate; Complete Time: 20:52 [facility] 10/16 19:55 Order name: Stool Culture [facility] 10/16 19:55 Order name: Fecal Leukocyte Stain [facility] 10/16 19:57 Order name: Acetaminophen; Complete Time: 20:51 [facility] 10/16 19:55 Order name: XRAY Chest (1 view) [facility] 10/16 19:57 Order name: ETOH Level; Complete Time: 20:51 [facility] 10/16 19:57 Order name: Salicylate; Complete Time: 20:51 [facility] 10/16 19:57 Order name: Urine Drug Screen [facility] 10/16 20:32 Order name: PTT, Activated Partial Thromb; Complete Time: 20:51 [facility] 10/16 20:50 Order name: CBC with Automated Diff [facility] 10/16 20:50 Order name: CBC with Automated Diff [facility] 10/16 20:50 Order name: Comprehensive Metabolic Panel [facility] 10/16 20:50 Order name: Comprehensive Metabolic Panel [facility] 10/16 20:54 Order name: Urinalysis [facility] 10/16 22:01 Order name: Urinalysis lp1 10/16 22:31 Order name: Urinalysis [facility] 10/16 23:31 Order name: Urine Microscopic Only [facility] 10/17 00:52 Order name: Lactate Sepsis 2 HR Follow-up [facility] 10/17 05:18 Order name: Lactate [facility] 10/16 19:55 Order name: EKG; Complete Time: 19:56 [facility] 10/16 19:55 Order name: Cardiac monitoring; Complete Time: 19:56 [facility] 10/16 19:55 Order name: EKG - Nurse/Tech; Complete Time: 19:56 [facility] 10/16 19:55 Order name: IV Saline Lock; Complete Time: 19:57 [facility] 10/16 19:55 Order name: Labs collected and sent; Complete Time: 19:57 [facility] 10/16 19:55 Order name: O2 Per Protocol; Complete Time: 19:57 [facility] 10/16 19:55 Order name: O2 Sat Monitoring; Complete Time: 19:57 [facility] 10/16 19:55 Order name: Urine Dipstick-Ancillary (obtain specimen); Complete Time: 22:01 [facility] 10/16 19:57 Order name: CT Head Brain wo Cont [facility] 10/16 20:50 Order name: NPO EDMS 10/16 20:53 Order name: CT Abd/Pelvis - Without Contrast [facility] Administered Medications: 19:39 Drug: Zofran 4 mg Route: PO; ak1 20:45 Follow up: Response: No change in condition lp1 20:07 Drug: NS 0.9% 1000 ml Route: IV; Rate: 1 bolus; Site: left jugular; lp1 22:01 Follow up: IV Status: Completed infusion; IV Intake: 1000ml lp1 20:08 Drug: Zofran 4 mg Route: IVP; Site: left jugular; lp1 20:45 Follow up: Response: No change in condition lp1 20:08 Drug: Pepcid 20 mg Route: IVP; Site: left jugular; lp1 21:00 Follow up: Response: No adverse reaction lp1 21:00 Drug: Phenergan 12.5 mg Route: IVP; Site: left jugular; ak1 22:30 Follow up: Response: Marked relief of symptoms lp1 21:45 Drug: Tylenol Suppository 650 mg Route: OK; lp1 23:38 Follow up: Response: Temperature is decreased lp1 22:01 Drug: NS 0.9% 1000 ml Route: IV; Rate: 1 bolus; Site: left jugular; lp1 23:30 Follow up: IV Status: Completed infusion; IV Intake: 1000ml lp1 23:15 Drug: Rocephin 1 grams Route: IV; Rate: per protocol; Site: left jugular; lp1 23:39 Follow up: IV Status: Completed infusion; IV Intake: 10ml lp1 23:30 Drug: NS 0.9% 1000 ml Route: IV; Rate: 125 ml/hr; Site: left jugular; lp1 23:40 Follow up: IV Status: Infusion continued upon admission lp1 Disposition: 10/16/19 20:02 Hospitalization ordered by Marcio Sorto for Inpatient Admission. Preliminary diagnosis are Vomiting, Diarrhea, unspecified, Weakness, Fever, unspecified, Schizophrenia, Elevated white blood cell count, Unspecified kidney failure. - Bed requested for [facility] ER HOLD. - Status is Inpatient Admission. fc - Condition is Stable. - Problem is new. - Symptoms have improved. UTI on Admission? No Signatures: Dispatcher [employer] [facility] Bill Palm MD MD cha Chretien, Felicia, RN JIGNA Lora Lozada, RN RN lp1 Citlaly Albarran, RN RN ak1 Nadia Armendariz wi Corrections: (The following items were deleted from the chart) 20:32 19:57 PTT, ACTIVATED+COAG.LAB.BRZ ordered. [facility] 20:55 20:02 Hospitalization Ordered by Marcio Sorto MD for Inpatient Admission. Preliminary [facility] diagnosis is Vomiting; Diarrhea, unspecified; Weakness; Fever, unspecified; Schizophrenia. Bed requested for Telemetry/MedSurg (Inpatient). Status is Inpatient Admission. Condition is Stable. Problem is new. Symptoms have improved. UTI on Admission? No. [facility] 20:59 20:52 Abdomen Pelvis W Con+CT.RAD.BRZ ordered. [facility] 21:06 20:55 10/16/2019 20:02 Hospitalization Ordered by Marcio Sorto MD for Inpatient mt Admission. Preliminary diagnosis is Vomiting; Diarrhea, unspecified; Weakness; Fever, unspecified; Schizophrenia; Elevated white blood cell count; Unspecified kidney failure. Bed requested for Telemetry/MedSurg (Inpatient). Status is Inpatient Admission. Condition is Stable. Problem is new. Symptoms have improved. UTI on Admission? No. [facility] 21:20 19:57 Allergies: Phenergan; ak1 lp1 10/17 17:46 10/16 21:06 10/16/2019 20:02 Hospitalization Ordered by Marcio Sorto MD for Inpatient fc Admission. Preliminary diagnosis is Vomiting; Diarrhea, unspecified; Weakness; Fever, unspecified; Schizophrenia; Elevated white blood cell count; Unspecified kidney failure. Bed requested for [facility] ER HOLD. Status is Inpatient Admission. Condition is Stable. Problem is new. Symptoms have improved. UTI on Admission? No. wi
[2019-10-16 20:26] LABS: Absolute Lymphocytes (CBC) 1.5 K/uL (0.7-4.9); Basophils % 0.2 % (0-1.3); Hematocrit 46.1 % (36.0-45.0); Lymphocytes % 9.1 % (15.3-44.8); MPV 8.7 fL (7.6-11.3); RBC Red Blood Cell Count 5.26 M/uL (3.86-4.86)
[2019-10-16 20:44] LABS: Protime INR 0.91
[2019-10-16] MEDS ORDERED: ALPRAZOLAM 0.25 MG TABLET PO PRN (20:45)
[2019-10-16] MEDS ORDERED: ONDANSETRON 4 MG/2 ML VIAL IV PRN (20:45)
[2019-10-16] MEDS ORDERED: ACETAMINOPHEN 500 MG TAB PO PRN (20:45)
--- NOTE | 2019-10-16 20:49 | P.HP ---
Certification for Inpatient Patient admitted to: Observation With expected LOS: <2 Midnights Patient will require the following post-hospital care: None Practitioner: I am a practitioner with admitting privileges, knowledge of patient current condition, hospital course, and medical plan of care. Services: Services provided to patient in accordance with Admission requirements found in Title 42 Section 412.3 of the Code of Federal Regulations Patient History Date of Service: 10/16/19 Reason for admission: Intractable nausea and vomiting History of Present Illness: 49-year-old female with no significant past medical history other than anxiety and psych disorder admitted with intractable nausea vomiting and diarrhea which has been going on for the last 2 days, worsened today and was brought to the ER. Patient is a poor historian hence most of the history is obtained from chart review and also talking to the ER physician. Denies any chest pain or shortness of breath. no fever no chills Associated with intractable nausea and vomiting and cannot tolerate anything p.o.. Patient was assessed in the ER and was found to have lactic acidosis and dehydrated and was admitted for further management. Allergies promethazine HCl [From Phenergan] Allergy (Mild, Verified 07/29/16 22:18) anxiety butorphanol [From Stadol] Allergy (Verified 07/29/16 22:18) anxiety Home medications list reviewed: Yes Home Medications: Butalbital/Aspirin/Caffeine [Fiorinal 50-325-40 mg Capsule] 1 cap PO Q8HP PRN Sumatriptan [Imitrex] 50 mg PO DAILY #9 tab 08/01/16 Topiramate [Topamax] 25 mg PO BID #60 tab 08/01/16 - Past Medical/Surgical History Diabetic: No Past Medical History: Reviewed- Non-Contributory -: Possible bipolar disorder -: Possible schizophrenia Past Surgical History: Reviewed- Non-Contributory -: Breast implants Psychosocial/ Personal History: She currently lives alone. - Family History Family History: Reviewed- Non-Contributory - Family History Mother -: Lung disease Notes: smoker, COPD - Social History Smoking Status: Former smoker Alcohol use: No CD- Drugs: No Caffeine use: Yes Review of Systems 10-point ROS is otherwise unremarkable Physical Examination - Vital Signs Temperature: 98.6 F Blood Pressure: 142/78 Pulse: 88 Respirations: 18 Pulse Ox (%): 94 - Physical Exam General: Alert, Oriented x3, Mild distress HEENT: Atraumatic, Normocephalic Neck: Supple, 2+ carotid pulse no bruit Respiratory: Clear to auscultation bilaterally, Normal air movement Cardiovascular: No edema, Regular rate/rhythm Capillary refill: <2 Seconds Gastrointestinal: Soft and benign, W/out hepatosplenomegaly Musculoskeletal: No clubbing, No swelling Integumentary: No rashes, No significant lesion Neurological: Normal speech, Normal strength at 5/5 x4 extr Lymphatics: No axilla or inguinal lymphadenopathy Urinary: Other (No bladder distention) External genitalia: Deferred Rectal: Deferred - Studies Laboratory Data (last 24 hrs) 10/16/19 19:57: APTT Cancelled 10/16/19 19:50: PT 10.8, INR 0.91, APTT 24.0 L 10/16/19 19:50: WBC 16.9 H, Hgb 15.1 H, Hct 46.1 H, Plt Count 506 H Assessment and Plan - Problems (Diagnosis) (1) Intractable nausea and vomiting Current Visit: Yes Status: Acute (2) Dehydration Current Visit: Yes Status: Acute (3) Gastroenteritis Current Visit: Yes Status: Acute (4) Schizophrenia Onset Date: 07/30/16 Current Visit: No Status: Suspected Qualifiers: Schizophrenia type: unspecified Qualified Code(s): F20.9 - Schizophrenia, unspecified (5) Lactic acidosis Current Visit: Yes Status: Acute - Plan Intractable nausea and vomiting Dehydration Lactic acidosis Gastroenteritis Psych disorder Plan Aggressive hydration Antinausea medications Pain control Serial lactic acid levels Antibiotics will get a CT of the abdomen pelvis Continue home medications and titrate as needed GI/DVT prophylaxis Discharge Plan: Home Plan to discharge in: 24 Hours - Advance Directives Does patient have a Living Will: No Does patient have a Durable POA for Healthcare: No Time Spent Managing Pts Care (In Minutes): 42
[2019-10-16 20:50] LABS: ALT/SGPT 33 U/L (12-78); AST/SGOT 29 U/L (15-37); Albumin 4.6 g/dL (3.4-5.0); Alkaline Phosphatase 104 U/L (45-117); BUN Blood Urea Nitrogen 24 mg/dL (7-18); Bicarbonate 17 mmol/L (21-32); Bilirubin Direct < 0.1 mg/dL (0-0.2); Bilirubin Total 0.3 mg/dL (0.2-1.0); Glucose Level 162 mg/dL (74-106); Lipase 514 U/L (73-393); Magnesium 1.9 mg/dL (1.8-2.4); NT PRO-BNP 19 pg/mL (<125); Potassium 3.8 mmol/L (3.5-5.1); Protein, Total 9.1 g/dL (6.4-8.2); Sodium Level 136 mmol/L (136-145); Troponin (Emerg Dept Use Only) < 0.02 ng/mL (0.0-0.045)
[2019-10-16] MEDS ORDERED: PROMETHAZINE INJ 25 MG/ML AMP ONE (21:00)
[2019-10-16] MEDS: NA CHLORIDE 0.9% 1,000 ML IV SCH (21:00)
[2019-10-16] MEDS ORDERED: ACETAMINOPHEN 650MG/RECT SUPP PR ONE (21:28)
[2019-10-16] MEDS ORDERED: BUTALBITAL PO PRN (21:52)
[2019-10-16] MEDS ORDERED: CAFFEINE PO PRN (21:52)
[2019-10-16] MEDS ORDERED: ASPIRIN PO PRN (21:52)
[2019-10-16 22:25] LABS: Urine Appearance CLOUDY; Urine Blood NEGATIVE (NEG); Urine Color YELLOW; Urine Glucose NEGATIVE (NEG); Urine Protein TRACE (NEG); Urine Specific Gravity >=1.030 (1.005-1.030); Urine Urobilinogen 0.2 mg/dL (0.2-1.0); Urine pH 5.5 (5.0-7.0)
[2019-10-16 22:27] LABS: Urine Microscopic Reflex ORDER UMIC
[2019-10-16 22:30] LABS: Urine Bilirubin NEGATIVE (NEG)
[2019-10-16 22:33] LABS: Barbiturates NEGATIVE (NEGATIVE); Benzodiazepines NEGATIVE (NEGATIVE); Cocaine NEGATIVE (NEGATIVE); METHAMPHETAM NEGATIVE (NEGATIVE); Methadone NEGATIVE (NEGATIVE); Opiates NEGATIVE (NEGATIVE); Phencyclidine NEGATIVE (NEGATIVE); THC Cannibis NEGATIVE (NEGATIVE)
[2019-10-16] MEDS ORDERED: SODIUM CHLORIDE 0.9% 10ML INJ IV PRN (22:48)
[2019-10-16] MEDS ORDERED: NA CHLORIDE 0.9% 1,000 ML ONE (23:11)
[2019-10-16] MEDS ORDERED: CEFTRIAXONE/SWI 1gm 1 GM/10 ML SYR ONE (23:11)
[2019-10-16 23:30] LABS: Calcium Oxalate Crystals- Ur FEW (NONE SEEN); Urine Bacteria <20 /HPF (<20); Urine Culture Reflex Order NOT NEEDED; Urine RBC <5 /HPF (NONE SEEN); Urine Urothelial Cells <5 /HPF (NONE SEEN)
[2019-10-16 23:48] VITALS: BMI 27.4
[2019-10-17] MEDS: METRONIDAZOLE 500mg IVPB 500 MG/100 ML BAG IV SCH ×2 (01:00→08:07)
[2019-10-17] MEDS ORDERED: METRONIDAZOLE 500mg IVPB 500 MG/100 ML BAG IV ONE ×2 (01:09→08:03)
[2019-10-17] MEDS: PROMETHAZINE INJ 25 MG/ML AMP IV PRN ×2 (01:29→05:35)
[2019-10-17] MEDS ORDERED: PROMETHAZINE INJ 25 MG/ML AMP ONE ×4 (01:32→10:07)
[2019-10-17 05:05] LABS: Basophils % 0.3 % (0-1.3); Hematocrit 36.4 % (36.0-45.0); Lymphocytes % 9.8 % (15.3-44.8); RBC Red Blood Cell Count 4.22 M/uL (3.86-4.86)
[2019-10-17 05:17] LABS: Albumin 3.4 g/dL (3.4-5.0); Bilirubin Total 0.5 mg/dL (0.2-1.0); Potassium 4.5 mmol/L (3.5-5.1); Protein, Total 6.8 g/dL (6.4-8.2)
[2019-10-17] MEDS: NA CHLORIDE 0.9% 1,000 ML IV SCH (07:00)
[2019-10-17] MEDS ORDERED: PANTOPRAZOLE 40 MG INJ ONE (08:03)
[2019-10-17] MEDS ORDERED: CEFTRIAXONE/SWI 1gm 1 GM/10 ML SYR ONE (08:03)
[2019-10-17] MEDS ORDERED: TOPIRAMATE 25 MG TAB PO SCH (09:00)
[2019-10-17] MEDS ORDERED: PANTOPRAZOLE 40 MG INJ IVP SCH (09:00)
[2019-10-17] MEDS ORDERED: CEFTRIAXONE/SWI 1gm 1 GM/10 ML SYR IVP SCH (09:00)
[2019-10-17] MEDS ORDERED: CEFTRIAXONE 1 GM/NS 50 ML 1 GM/50 ML BAG IV SCH (09:00)
[2019-10-17] MEDS ORDERED: NA CHLORIDE 0.9% 1,000 ML ONE (10:00)
[2019-10-17] MEDS ORDERED: TRAMADOL HCL 50 MG TAB ONE (11:19)
--- NOTE | 2019-10-17 11:54 | RAD REPORT ---
EXAM DESCRIPTION: CT - Head Brain Wo Cont - 10/16/2019 11:22 pm EXAM DESCRIPTION: Head Brain Wo Cont CLINICAL HISTORY: 49 years Female, Dizziness; mental status change TECHNIQUE: 5 mm axial images were obtained along with 3 mm reformatted coronal and sagittal images. This exam was performed according to our departmental dose-optimization program, which includes autom ated exposure control, adjustment of the mA and/or kV according to patient size and/or use of iterati ve reconstruction technique. COMPARISON: None. FINDINGS: No acute abnormal extracerebral fluid collections are demonstrated. The cortical sulci, ventricles, and cisterns are within normal limits. There are no areas of altered attenuation identified to suggest acute hemorrhage, infarction, or mass lesion. The visualized portions of the paranasal sinuses and mastoid air cells are clear. IMPRESSION: 1. Normal study. Electronically signed by: Cesar Bailey MD 10/16/2019 9:48 PM [employer] Due to temporary technical issues with the PACS/Fluency reporting system, reports are being signed by the in house radiologist as a courtesy to ensure prompt reporting. The interpreting radiologist is f ully responsible for the content of the report.
--- NOTE | 2019-10-17 11:54 | RAD REPORT ---
EXAM DESCRIPTION: RAD - Chest Single View - 10/16/2019 8:52 pm CLINICAL HISTORY: Abdominal pain, abdominal distention COMPARISON: None available at the time of the dictation. Technical difficulties precluded access to the prior exam dated base. TECHNIQUE: AP portable chest image was obtained 2019 hours . FINDINGS: Lung volumes are low. No focal mass or consolidation. Heart and vasculature are normal. No measurable pleural effusion and no pneumothorax. No acute bony abnormality seen. No acute aortic fin dings suspected. IMPRESSION: No acute cardiopulmonary process.
--- NOTE | 2019-10-17 11:55 | RAD REPORT ---
EXAM DESCRIPTION: CT - Abdomen Pelvis Wo Contrast - 10/16/2019 11:22 pm CLINICAL HISTORY: The patient is 49 years old and is Female; ABD PAIN TECHNIQUE: Axial computed tomography images of the abdomen and pelvis without intravenous contrast. Sagittal and coronal reformatted images were created and reviewed. This CT exam was performed usi ng one or more of the following dose reduction techniques: automated exposure control, adjustment o f the mA and/or kV according to patient size, and/or use of iterative reconstruction technique. DLP: 1035 mGy*cm COMPARISON: None. FINDINGS: Motion limited examination. LUNG BASES: Lung bases are clear. HEART: Visualized heart is normal. ABDOMEN: LIVER: Unremarkable. GALLBLADDER AND BILE DUCTS: Prior cholecystectomy. No ductal dilation. PANCREAS: Unremarkable. No ductal dilation. SPLEEN: Unremarkable. No splenomegaly. ADRENALS: Unremarkable. No mass. KIDNEYS AND URETERS: Unremarkable. No obstructing stones. No hydronephrosis. STOMACH AND BOWEL: Unremarkable. No obstruction. No mucosal thickening. PELVIS: APPENDIX: The appendix is seen and is within normal limits. BLADDER: Bladder is decompressed. No stones. REPRODUCTIVE: Unremarkable as visualized. ABDOMEN and PELVIS: INTRAPERITONEAL SPACE: Unremarkable. No free air. No significant fluid collection. BONES/JOINTS: Grade 1 anterolisthesis of L3 on L4 and L4 on L5 on a degenerative basis. Diffuse os teopenia. No acute fracture. No dislocation. SOFT TISSUES: Partially seen bilateral subglandular breast implants with capsular calcifications. VASCULATURE: Unremarkable. No abdominal aortic aneurysm. LYMPH NODES: Unremarkable. No enlarged lymph nodes. IMPRESSION: 1. No acute abdominal or pelvic abnormality. No obstructive uropathy. 2. Grade 1 anterolisthesis of L3 on L4 and L4 on L5 on a degenerative basis. Diffuse osteopenia. Flexion and extension lumbar spine radiographs may be of diagnostic use. Electronically signed by: Paul Muller DO 10/16/2019 9:49 PM [employer] Due to temporary technical issues with the PACS/Fluency reporting system, reports are being signed by the in house radiologist as a courtesy to ensure prompt reporting. The interpreting radiologist is f ully responsible for the content of the report.
[2019-10-17] MEDS ORDERED: TRAMADOL HCL 50 MG TAB PO PRN (12:17)
--- NOTE | 2019-10-17 14:40 | P.DS ---
Admission Date: 10/16/19 Discharge Date: 10/17/19 Disposition: ROUTINE DISCHARGE Discharge Condition: FAIR Reason for Admission: Intractable nausea and vomiting Consultations: None Procedures: None Brief History of Present Illness: 49-year-old woman with a history of psychiatric disorders and anxiety was brought to the ED due to episodes of diarrhea and vomiting. The patient was still vomiting in the ED. Her blood work resulted lactic acidosis, had evidence of dehydration with elevated creatinine and also leukocytosis. CT abdomen and pelvis done in the ED reported no acute disease. Patient was placed under observation for further management. Hospital Course: She was treated supportively with IV fluids, placed on antiemetics, and started on IV Rocephin and metronidazole. His leukocytosis resolved, serum creatinine improved to normal, lactic acidosis resolved. Patient did not have any episode of diarrhea after hospitalization. She was able to eat regular diet without nausea or vomiting. She is deemed clinically stable for discharge. Patient is discharged with his ciprofloxacin and Flagyl for possible gastroenteritis. Vital Signs/Physical Exam: Temp Pulse Resp BP Pulse Ox 98 F 76 16 107/75 99 10/17/19 08:00 10/17/19 08:00 10/17/19 08:00 10/17/19 08:00 10/17/19 08:00 General: Alert, In no apparent distress HEENT: Mucous membr. moist/pink Neck: Supple, JVD not distended Respiratory: Clear to auscultation bilaterally, Normal air movement Cardiovascular: No edema, Normal pulses, Normal S1 S2 Gastrointestinal: Normal bowel sounds, Soft and benign, No tenderness Musculoskeletal: No swelling Integumentary: No rashes Neurological: Normal speech, Normal strength at 5/5 x4 extr Laboratory Data at Discharge: WBC 10.2 K/uL (4.3-10.9) D 10/17/19 04:50 Hgb 12.2 g/dL (12.0-15.0) D 10/17/19 04:50 Hct 36.4 % (36.0-45.0) D 10/17/19 04:50 Plt Count 380 K/uL (152-406) D 10/17/19 04:50 PT 10.8 SECONDS (9.5-12.5) 10/16/19 19:50 INR 0.91 10/16/19 19:50 APTT Cancelled 10/16/19 19:57 Sodium 142 mmol/L (136-145) 10/17/19 04:50 Potassium 4.5 mmol/L (3.5-5.1) 10/17/19 04:50 BUN 24 mg/dL (7-18) H 10/17/19 04:50 Creatinine 0.78 mg/dL (0.55-1.3) 10/17/19 04:50 Glucose 123 mg/dL (74-106) H 10/17/19 04:50 Magnesium 1.9 mg/dL (1.8-2.4) 10/16/19 19:50 Total Bilirubin 0.5 mg/dL (0.2-1.0) 10/17/19 04:50 AST 20 U/L (15-37) 10/17/19 04:50 ALT 23 U/L (12-78) 10/17/19 04:50 Alkaline Phosphatase 76 U/L (45-117) 10/17/19 04:50 Lipase 514 U/L (73-393) H 10/16/19 19:50 Home Medications: Ciprofloxacin HCl [Cipro 500 MG Tablet] 500 mg PO BID #10 tab 10/17/19 metroNIDAZOLE [Flagyl] 500 mg PO Q8H #15 tablet 10/17/19 New Medications: Ciprofloxacin HCl [Cipro 500 MG Tablet] 500 mg PO BID #10 tab metroNIDAZOLE [Flagyl] 500 mg PO Q8H #15 tablet Diet: Regular Activity: Ad valentino
[2019-10-17 16:18] VITALS: BP 122/75; TEMP 98.5
[2019-10-17 18:06] VITALS: O2SAT 99
--- NOTE | 2019-10-19 08:15 | EKG ---
Test Date: 2019-10-16 Test Time: 19:51:08 Reading Professor: JANE MEASUREMENT RESULTS: Intervals: Rate: 105 MI: 138 QRSD: 76 QT: 344 QTc: 454 [place]: P: 6 MI: 138 QRS: -11 T: 53 INTERPRETIVE STATEMENTS: Sinus tachycardia Cannot rule out Inferior infarct, age undetermined Abnormal ECG Compared to ECG 02/14/2019 13:21:19 Sinus rhythm no longer present Myocardial infarct finding still present Electronically Signed On 10-19-19 08:10:52 BRASS PLATER by Tito Smiley
== END 2019-10-17 17:00 | disposition home or self-care (01) ==
LOC: ER 19:32 → ERHOLD 21:07
PROVIDERS: ADMIT Family Medicine; ATTEND Family Medicine
DX: K52.9 Noninfective gastroenteritis and colitis, unspecified (principal); E86.0 Dehydration; F41.9 Anxiety disorder, unspecified; Z87.891 Personal history of nicotine dependence; F20.9 Schizophrenia, unspecified; E87.2 Acidosis
CPT/HCPCS: 96365; 96361; 93005; 87040 ×2; 87088; 85025 ×2; 80048; 36415; 80320; 83735; 80329 ×2; 85610; 80076; 80307 ×8; 83605 ×3; 85730; 84484; 83690; 80053; 83880; 70450; 74176; 71045; 51702; 96375; 99285; J2550 ×5; C9113; J0696 ×2; J7030 ×3; J2405; G0378 ×2; 81003; 81015; 87086

== ENCOUNTER 2019-12-25 15:46 | Emergency (ER) | payer OTHER ==
--- OUTSIDE RECORDS SUMMARY | 2019-12-25 15:48 | XMS REPORT ---
:1970 [facility] Address [address] [place] [address] Care Team Providers Name Role Phone UNKNOWN, REFFERING Primary Care Provider Unavailable LINDY MADISON Unavailable Unavailable Problems This patient has no known problems. Allergies, Adverse Reactions, Alerts This patient has no known allergies or adverse reactions. Medications This patient has no known medications. Encounters Start End Encounter Admission Attending Care Care Encounter Date/Time Date/Time Type Type Clinicians Facility Department ID 2019-01-22 Inpatient E [facility] [id number] 04:39:00 2018-02-21 2018-02-20 Inpatient E [facility] [id number] 14:48:00 13:18:00 LINDY Results Test Description Test [...] (test <0.01 g/dL 0.00-0.01 code=ETOHU) Comprehensive Metabolic [id number] 14:36:00 Test Item Value Reference Range Comments [...] race is not provided, and the patient isAfrican-Saudi Arabian, multiply by 1.212. If sex is not provided, and thepatient is female, multiply by 0.742. Results for patients <18 years ofage have not been validated by the MDRD study and should be interpretedwith caution.eGFR Result Interpretation:eGFR > or=60 is in the Normal RangeeGFR < 60 may mean kidney diseaseeGFR < 15 may mean kidney failureRanges recommended by the National Kidney Foundation,http://nkdep.[facility] .gov Urinalysis [id number] 14:32:00 Test Item Value Reference Range Comments Color (test code=COLOR) Yellow Yellow,Straw,Pl yellow Clarity (test code=CLAR) Clear Clear Specific [place] (test code=SPGR) 1.024 1.001-1.035 pH (test code=PH) [...] Bacteria (test code=BACT) Few /HPF CBC with [id number] 14:21:00 Test Item Value Reference Range Comments [...] Lymph Abs (test code=ALYMPH) 3.0 K/cumm 0.5-4.6 [place] Abs (test code=AMONO) 0.5 K/cumm 0.0-1.2 Eos Abs (test code=AEOS) 0.19 K/cumm 0.00-0.74 Baso Abs (test code=ABASO) 0.1 K/cumm 0.00-0.21
[2019-12-25 17:16] LABS: Urine Blood NEGATIVE (NEG); Urine Glucose NEGATIVE (NEG); Urine Protein TRACE (NEG); Urine Specific Gravity >1.030 (1.005-1.030); Urine pH 5.5 (5.0-7.0)
[2019-12-25] MEDS ORDERED: ONDANSETRON 4 MG (ODT) TAB ONE (17:29)
[2019-12-25] MEDS ORDERED: IBUPROFEN 200 MG TAB PO ONE (17:52)
[2019-12-25] MEDS ORDERED: IBUPROFEN 400 MG TAB ONE ×2 (17:52→17:55)
[2019-12-25] MEDS ORDERED: ACETAMINOPHEN 325 MG TABLET ONE (17:52)
--- NOTE | 2019-12-25 18:07 | EDPHYS ---
Physician Documentation [facility] Name: Tiffany Quinn Age: 49 yrs Sex: Female : 1970 Arrival Date: 12/25/2019 Time: 15:50 Bed 27 Private MD: ED Physician Ney Woody HPI: 12/24 19:10 This 49 yrs old Female presents to ER via Ambulatory with complaints of tw4 Headache, Nausea. 19:10 The patient complains of pain to the forehead. The patient describes the headache as tw4 aching. Onset: The symptoms/episode began/occurred today. Severity of symptoms: At its worst the pain was moderate, in the emergency department the pain is unchanged. The patient has not experienced similar symptoms in the past. 19:10 Associated signs and symptoms: Pertinent positives: nausea, Pertinent negatives: tw4 altered mental status, dizziness, fever, neck stiffness, paresthesias, Photophobia rash, sinus congestion, sinus tenderness, vision changes, vision loss. 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 - Social history:: Smoking status: Patient denies any tobacco usage or history of. ROS: 19:10 Abdomen/GI: Positive for nausea, Negative for abdominal pain, nausea and vomiting, tw4 nausea, vomiting, and diarrhea, diarrhea, constipation, abdominal cramps, abdominal distension, anorexia, black/tarry stool, rectal pain, bowel incontinence. 19:10 Neuro: Positive for headache, Negative for altered mental status, dizziness, gait disturbance, numbness, seizure activity, speech changes, syncope, tinnitus, visual changes. Exam: 19:10 Constitutional: This is a well developed, well nourished patient who is awake, alert, tw4 and in no acute distress. Head/Face: Normocephalic, atraumatic. Chest/axilla: Normal chest wall appearance and motion. Nontender with no deformity. No lesions are appreciated. Cardiovascular: Regular rate and rhythm with a normal S1 and S2. No gallops, murmurs, or rubs. Normal PMI, no JVD. No pulse deficits. Respiratory: Lungs have equal breath sounds bilaterally, clear to auscultation and percussion. No rales, rhonchi or wheezes noted. No increased work of breathing, no retractions or nasal flaring. Abdomen/GI: Soft, non-tender, with normal bowel sounds. No distension or tympany. No guarding or rebound. No evidence of tenderness throughout. Skin: Warm, dry with normal turgor. Normal color with no rashes, no lesions, and no evidence of cellulitis. MS/ Extremity: Pulses equal, no cyanosis. Neurovascular intact. Full, normal range of motion. Neuro: Awake and alert, GCS 15, oriented to person, place, time, and situation. Cranial nerves II-XII grossly intact. Motor strength 5/5 in all extremities. Sensory grossly intact. Cerebellar exam normal. Normal gait. Vital Signs: 15:53 BP 136 / 97; Pulse 85; Resp 17 S; Temp 97.4; Pulse Ox 99% on R/A; Weight 68.95 kg (R); ca1 Height 5 ft. 2 in. (157.48 cm) (R); 15:53 Body Mass Index 27.80 (68.95 kg, 157.48 cm) ca1 Jovani Coma Score: 19:19 Eye Response: spontaneous(4). Verbal Response: oriented(5). Motor Response: obeys tw4 commands(6). Total: 15. MDM: 16:55 Patient medically screened. tw4 19:19 Differential diagnosis: herpes zoster, hypertensive headache, migraine, trigeminal tw4 neuralgia. Data reviewed: vital signs, nurses notes. Data interpreted: Pulse oximetry: Interpretation: normal. Counseling: I had a detailed discussion with the patient and/or guardian regarding: the historical points, exam findings, and any diagnostic results supporting the discharge/admit diagnosis. 12/24 16:46 Order name: Urine Dipstick--Ancillary (enter results); Complete Time: 17:44 bd 12/24 17:10 Order name: Flu tw4 Administered Medications: 17:27 Not Given (Patient Refused): Zofran (Ondansetron) 4 mg IVP once; over 2 minutes ls4 17:53 Drug: Motrin 800 mg Route: PO; ls4 17:53 Drug: Tylenol 1000 mg Route: PO; ls4 18:08 Not Given (Duplicate Order): Phenergan 12.5 mg IVP once ls4 18:09 Drug: Phenergan 25 mg Route: PO; ls4 Disposition: 12/25/19 18:05 Discharged to Home. Impression: Nausea, Low back pain, Dysuria. - Condition is Stable. - Discharge Instructions: Chronic Back Pain, Dysuria, General Headache Without Cause, Nausea, Adult. - Prescriptions for Fioricet 50- 325-40 mg Oral tablet - take 1 tablet by ORAL route every 4 hours as needed not to exceed 6 tablets per 24hrs; 10 tablet. promethazine 25 mg Oral Tablet - take 1 tablet by ORAL route every 6 hours As needed; 20 tablet. - Medication Reconciliation Form, Thank You Letter, Antibiotic Education, Prescription Opioid Use form. - Follow up: Private Physician; When: Upon discharge from the Emergency Department; Reason: Recheck today's complaints, Continuance of care, Re-evaluation by your physician. - Problem is new. - Symptoms have improved. Signatures: Dispatcher [employer] EDMS Ney Woody MD MD tw4 Paulina Berrios RN RN ls4 Rosangela Macias RN RN ca1 Corrections: (The following items were deleted from the chart) 18:06 18:05 12/25/2019 18:05 Discharged to Home. Impression: Nausea; Low back pain. Condition tw4 is Stable. Forms are Medication Reconciliation Form, Thank You Letter, Antibiotic Education, Prescription Opioid Use. Follow up: Private Physician; When: Upon discharge from the Emergency Department; Reason: Recheck today's complaints, Continuance of care, Re-evaluation by your physician. Problem is new. Symptoms have improved. tw4 18:40 18:06 12/25/2019 18:05 Discharged to Home. Impression: Nausea; Low back pain; Dysuria. ls4 Condition is Stable. Forms are Medication Reconciliation Form, Thank You Letter, Antibiotic Education, Prescription Opioid Use. Follow up: Private Physician; When: Upon discharge from the Emergency Department; Reason: Recheck today's complaints, Continuance of care, Re-evaluation by your physician. Problem is new. Symptoms have improved. tw4 19:12 19:10 Associated signs and symptoms: The patient has no apparent associated signs or tw4 symptoms, tw4
--- NOTE | 2019-12-25 18:07 | ER ---
Nurse's Notes [facility] Name: Tiffany Quinn Age: 49 yrs Sex: Female : 1970 Arrival Date: 12/25/2019 Time: 15:50 Bed 27 Private MD: Diagnosis: Nausea;Low back pain;Dysuria Presentation: 12/24 15:53 Chief complaint: Patient states: 2 days ago urinary symptoms and low back pain more in ca1 the middle, headache, nausea. Denies fever. Coronavirus screen: The patient has NOT traveled to [place] in the past 14 days. The patient has NOT had contact with known and/or suspected case of Coronavirus. Ebola Screen: Patient negative for fever greater than or equal to 101.5 degrees Fahrenheit, and additional compatible Ebola Virus Disease symptoms Patient denies exposure to infectious person. Patient denies travel to an Ebola-affected area in the 21 days before illness onset. No symptoms or risks identified at this time. Initial Sepsis Screen: Does the patient meet any 2 criteria? No. Patient's initial sepsis screen is negative. Does the patient have a suspected source of infection? No. Patient's initial sepsis screen is negative. Risk Assessment: Do you want to hurt yourself or someone else? Patient reports no desire to harm self or others. Onset of symptoms was December 25, 2019. Care prior to arrival: None. 15:53 Method Of Arrival: Ambulatory ca1 15:53 Acuity: MANUEL 3 ca1 Triage Assessment: 15:57 General: Appears in no apparent distress. comfortable, Behavior is calm, cooperative, ca1 appropriate for age. Neuro: Level of Consciousness is awake, alert, obeys commands, Oriented to person, place, time. 17:28 Pain: Complains of pain in lumbar area, left low back and right low back Pain currently ls4 is 5 out of 10 on a pain scale. Pain began gradually, 2-3 days ago. Also complains of nausea. Cardiovascular: No deficits noted. Respiratory: No deficits noted. GI: No deficits noted. : Urine is clear. Derm: Skin is pink, warm \T\ dry. Musculoskeletal: No deficits noted. 17:30 Headache History: The patient has had previous headaches and this one is similar to ls4 previous episodes. 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 - Social history:: Smoking status: Patient denies any tobacco usage or history of. Screenin:27 Abuse screen: Denies threats or abuse. Denies injuries from another. Nutritional ls4 screening: No deficits noted. Tuberculosis screening: No symptoms or risk factors identified. Fall Risk None identified. Assessment: 16:59 General: Appears in no apparent distress. comfortable, Behavior is calm, cooperative. ls4 18:00 Reassessment: Patient appears in no apparent distress at this time. Patient and/or ls4 family updated on plan of care and expected duration. Pain level reassessed. Patient is alert, oriented x 3, equal unlabored respirations, skin warm/dry/pink. 18:00 Pain: Complains of pain in forehead and back and right low back and left low back and ls4 lumbar area Pain currently is 4 out of 10 on a pain scale. Neuro: No deficits noted. Cardiovascular: No deficits noted. Respiratory: No deficits noted. Vital Signs: 15:53 BP 136 / 97; Pulse 85; Resp 17 S; Temp 97.4; Pulse Ox 99% on R/A; Weight 68.95 kg (R); ca1 Height 5 ft. 2 in. (157.48 cm) (R); 15:53 Body Mass Index 27.80 (68.95 kg, 157.48 cm) ca1 Jovani Coma Score: 19:19 Eye Response: spontaneous(4). Verbal Response: oriented(5). Motor Response: obeys tw4 commands(6). Total: 15. ED Course: 15:50 Patient arrived in ED. mr 15:55 Triage completed. ca1 15:57 Arm band placed on right wrist. ca1 16:39 Ney Woody MD is Attending Physician. tw4 16:54 Paulina Berrios RN is Primary Nurse. ls4 17:17 Flu Sent. lt1 17:27 Patient has correct armband on for positive identification. Bed in low position. Call ls4 light in reach. Side rails up X 1. Pulse ox on. NIBP on. Warm blanket given. Verbal reassurance given. Diet: Patient is NPO. 17:27 No provider procedures requiring assistance completed. ls4 17:30 Patient did not have IV access during this emergency room visit. ls4 Administered Medications: 17:27 Not Given (Patient Refused): Zofran (Ondansetron) 4 mg IVP once; over 2 minutes ls4 17:53 Drug: Motrin 800 mg Route: PO; ls4 17:53 Drug: Tylenol 1000 mg Route: PO; ls4 18:08 Not Given (Duplicate Order): Phenergan 12.5 mg IVP once ls4 18:09 Drug: Phenergan 25 mg Route: PO; ls4 Outcome: 18:05 Discharge ordered by . tw 18:30 Condition: stable ls4 18:30 Discharged to home ambulatory, with friend, DISCHARGE DELAYED AWAITING FRIEND FOR RIDE ls4 HOME. 18:30 Discharge instructions given to patient, friend, Instructed on discharge instructions, follow up and referral plans. medication usage, safety practices. 18:40 Patient left the ED. ls4 Signatures: Vinita GandleyNey MD MD tw4 Paulina Berrios RN RN ls4 Rosangela Macias RN RN [facility] Jigna Broussard [facility]
[2019-12-25] MEDS ORDERED: PROMETHAZINE 25 MG TABLET ONE (18:12)
[2019-12-25 20:16] VITALS: BP 136/97; TEMP 97.4; O2SAT 99
== END 2019-12-25 18:40 | disposition home or self-care (01) ==
LOC: ER 15:46
DX: M54.5 Low back pain (principal); R30.0 Dysuria; R11.0 Nausea; Z88.6 Allergy status to analgesic agent
CPT/HCPCS: 81003; 87804; 99283; Q0169

== ENCOUNTER 2020-02-15 16:31 | Emergency (ER) | payer OTHER ==
--- OUTSIDE RECORDS SUMMARY | 2020-02-15 16:38 | XMS REPORT ---
:1970 Author Organization [facility] Address [address] [place] [address] Care Team Providers Name Role Phone UNKNOWN Primary Care Provider Unavailable AFUWAPE Unavailable Unavailable Problems This patient has no known problems. Allergies, Adverse Reactions, Alerts This patient has no known allergies or adverse reactions. Medications This patient has no known medications. Encounters Start End Encounter Admission Attending Care Care Encounter Date/Time Date/Time Type Type Clinicians Facility Department ID 2019-01-22 Inpatient E [facility] [id number] 04:39:00 2018-02-21 2018-02-20 [id number] 14:48:00 13:18:00 LUKUMAN Results Test Description Test Time Test Comments Text Results Atomic Results Result Comments [id number] 2018-02-20 14:36:00 Test Item Value Reference Range Comments Amphetamine (test code = AMPH) POSITIVE Negative F or diagnostic purposes only, positive results should always be assessedin conju nctionwith the patient's medica l history,clinical examination and otherfindings.To fulfill legal requirements, a more specific alternate chemic al methodmust be used inorder to obtain a Confirmed analyt ical result. GC/MS is the pre ferred confirmatory met hod. Barbiturates (test code = AKIKO) Negative Negative Benzodiazepine (test code = Negative Negative FINA) Cocaine (test code = COCA) Negative Negative Methadone (test code = MTHD) Negative Negative Opiates (test code = OPIA) Negative Negative PCP (test code = PCP) Negative Negative Propoxyphene (test code = Negative Negative PROPOX) THC (test code = THC) Negative Negative Alcohol, Urine (test code = <0.01 g/dL 0.00-0.01 ETOHU) Comprehensive Metabolic [id number] 14:36:00 Test Item Value Reference Range Comments Sodium (test code = NA) 139 mmol/L 135-145 Potassium (test code = 4.6 mmol/L 3.5-5.1 K) Chloride (test code = 100 mmol/L 98-105 CL) Carbon Dioxide (test 24 mmol/L 22-29 code = CO2) Glucose (test code = 94 mg/dL 70-115 GLU) Blood Urea Nitrogen 18 mg/dL 6-20 (test code = BUN) Creatinine (test code = 0.6 mg/dL 0.5-0.9 CREAT) Calcium (test code = CA) 9.4 mg/dL 8.3-10.5 Prot Total (test code = 7.2 g/dL 6.4-8.3 TP) Albumin (test code = 4.6 g/dL 3.5-5.2 ALB) A/G Ratio (test code = 1.8 Ratio AGRATIO) Globulin (test code = 2.6 2.9-3.1 GLOB) Bili Total (test code = 0.2 mg/dL 0.1-0.9 TBIL) Alk Phos (test code = 80 U/L 35-104 APHOS) AST (test code = AST) 16 U/L 1-32 ALT (test code = ALT) 13 U/L 1-33 BUN/Creatinine Ratio 30.0 (test code = BCRATIO) Anion Gap (test code = 15 mmol/L 7-16 AGAP) Estimated GFR (test code >60 mL/min/1.73m2 eGFR (estimated Glomerular = GFR) Filtration Rate) is an estimated value, calculated from the patient 's serum creatinine using the MDRD equation.It is N OT the patient's actual GFR. The eGFR provides a more clinicallyuseful measure of kidney disease t gu serum creatinine alone .This calculation take s sex and race into accoun t, if the informationis pr ovided. If the race is not provided, and the patient isAfrican-Americ an, multiply by 1.21 2. If sex is not provided, and thepatient is fe male, multiply by 0.74 2. Results for patients <18 years ofage have not b een validated by the MDRD study and should be interpretedwith caution.eGFR Res ult Interpretation:e GFR > or = 60 is in the Nor mal RangeeGFR < 60 m ay mean kidney diseaseeG FR < 15 may mean kidney failureRanges recommended by opal bishop National Kidney Foundation,http: //nkdep.nih .gov Urinalysis [id number] 14:32:00 Test Item Value Reference Range Comments Color (test code = COLOR) Yellow Yellow,Straw,Pl yellow Clarity (test code = CLAR) Clear Clear Specific [place] (test code = SPGR) 1.024 1.001-1.035 pH (test code = PH) 7.0 5.0-9.0 Ketone (test code = KET) Negative mg/dL Negative Glucose (test code = GLUCUR) Negative mg/dL Negative Protein (test code = PROT) Negative mg/dL Negative Bilirubin (test code = BILI) Negative mg/dL Negative Occult Blood (test code = UDOB) Negative Negative Urobilinogen (test code = UROB) 0.2 mg/dL 0.2-1.0 Nitrite (test code = NIT) Negative Negative Leuk Esterase (test code = LEUK) Small Negative Micros Exam (test code = MEXAM) Indicated Epithelial Cells (test code = EPI) 3-5 /LPF 0-30 WBC, Urine (test code = UWBC) 0-2 /HPF 0-5 RBC, Urine (test code = URBC) None Seen /HPF 0-5 Bacteria (test code = BACT) Few /HPF CBC with [id number] 14:21:00 Test Item Value Reference Range Comments WBC (test code = WBC) 8.8 K/cumm 4.4-10.5 RBC (test code = RBC) 4.65 M/cumm 3.75-5.20 Hemoglobin (test code = HGB) 12.8 gm/dL 12.2-14.8 Hematocrit (test code = HCT) 40.5 % 36.5-44.4 MCV (test code = MCV) 87.1 fL 80-100 MCH (test code = MCH) 27.6 pg 27.0-32.5 MCHC (test code = MCHC) 31.7 g/dL 32.0-37.5 RDW (test code = RDW) 13.3 % 11.5-14.5 Platelet Count (test code = PLTCT) 464 K/cumm 140-440 MPV (test code = MPV) 9.7 fL Diff Method (test code = DIFFM) Auto Neutrophil (test code = NEUT) 57.2 % 36-70 Lymphocyte (test code = LYMPH) 33.9 % 12-44 Monocyte (test code = MONO) 6.1 % 0-11 Eosinophil (test code = EOS) 2.2 % 0-7 Basophil (test code = BASO) 0.6 % 0-2 Neutro Abs (test code = ANEUT) 5.0 K/cumm 1.6-7.4 Lymph Abs (test code = ALYMPH) 3.0 K/cumm 0.5-4.6 Leon Abs (test code = AMONO) 0.5 K/cumm 0.0-1.2 Eos Abs (test code = AEOS) 0.19 K/cumm 0.00-0.74 Baso Abs (test code = ABASO) 0.1 K/cumm 0.00-0.21
[2020-02-15 17:22] LABS: Absolute Lymphocytes (CBC) 2.7 K/uL (0.7-4.9); Hematocrit 36.6 % (36.0-45.0); Lymphocytes % 34.3 % (15.3-44.8); RBC Red Blood Cell Count 4.29 M/uL (3.86-4.86)
[2020-02-15 17:37] LABS: ALT/SGPT 22 U/L (12-78); AST/SGOT 17 U/L (15-37); Albumin 4.1 g/dL (3.4-5.0); Alkaline Phosphatase 84 U/L (45-117); BUN Blood Urea Nitrogen 8 mg/dL (7-18); Bicarbonate 24 mmol/L (21-32); Bilirubin Direct < 0.1 mg/dL (0-0.2); Bilirubin Total 0.3 mg/dL (0.2-1.0); Glucose Level 102 mg/dL (74-106); Potassium 3.4 mmol/L (3.5-5.1); Protein, Total 7.6 g/dL (6.4-8.2); Sodium Level 141 mmol/L (136-145)
[2020-02-15] MEDS ORDERED: IBUPROFEN 200 MG TAB PO ONE (17:50)
[2020-02-15] MEDS ORDERED: ONDANSETRON 4 MG (ODT) TAB ONE (17:51)
[2020-02-15] MEDS ORDERED: IBUPROFEN 400 MG TAB ONE (17:51)
[2020-02-15] MEDS ORDERED: PROMETHAZINE 25 MG TABLET ONE (18:29)
[2020-02-15] MEDS ORDERED: KETOROLAC 30 MG/ML INJ ONE (18:30)
[2020-02-15] MEDS ORDERED: POTASSIUM CL SA 10 MEQ TAB PO ONE (18:30)
--- NOTE | 2020-02-15 18:41 | ER ---
Nurse's Notes [facility] Name: Tiffany Quinn Age: 49 yrs Sex: Female : 1970 Arrival Date: 02/15/2020 Time: 16:32 Bed 19 Private MD: Diagnosis: Vomiting;Nausea and vomiting;Diarrhea, unspecified Presentation: 02/14 16:45 Chief complaint: Patient states: Has had N/V/D and fever x 2 weeks. Coronavirus screen: rb1 Patient denies a cough. Patient denies shortness of breath or difficulty breathing. Patient reports a measured and/or subjective temperature greater than 100.4F. Patient denies travel on a cruise ship or to a country the [facility] currently lists as an affected area. Patient denies contact with known and/or suspected case of COVID-19. Ebola Screen: Patient negative for fever greater than or equal to 101.5 degrees Fahrenheit, and additional compatible Ebola Virus Disease symptoms Patient denies exposure to infectious person. Initial Sepsis Screen: Does the patient meet any 2 criteria? No. Patient's initial sepsis screen is negative. Does the patient have a suspected source of infection? Yes: Dysuria/Frequency/Urgency/UTI. Risk Assessment: Do you want to hurt yourself or someone else? Patient reports no desire to harm self or others. Onset of symptoms was January 24, 2020. 16:45 Method Of Arrival: Ambulatory rb1 16:45 Acuity: MANUEL 3 rb1 Triage Assessment: 16:45 General: Appears in no apparent distress. comfortable, Behavior is calm, cooperative, rb1 Reports fever for. Pain: Complains of pain in head Pain currently is 7 out of 10 on a pain scale. Neuro: Level of Consciousness is awake, alert, obeys commands, Oriented to person, place, time, situation, Reports headache. Cardiovascular: Capillary refill < 3 seconds. Respiratory: Airway is patent Respiratory effort is even, unlabored, Respiratory pattern is regular, symmetrical. GI: Reports diarrhea, nausea, vomiting, since x 2 weeks. : Reports burning with urination. Derm: Skin is pink, warm \T\ dry. 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 - Social history:: Smoking status: Patient/guardian denies using. Screenin:45 Abuse screen: Denies threats or abuse. Nutritional screening: Has had N/V for 3 or more rb1 days. Tuberculosis screening: No symptoms or risk factors identified. Fall Risk None identified. Assessment: 16:45 General: See triage assessment. rb1 17:45 Reassessment: Patient appears in no apparent distress at this time. No changes from rb1 previously documented assessment. 18:25 Reassessment: Having difficulty obtaining an IV, provider notified. rb1 18:45 Reassessment: Patient appears in no apparent distress at this time. Patient and/or rb1 family updated on plan of care and expected duration. Pain level reassessed. Patient is alert, oriented x 3, equal unlabored respirations, skin warm/dry/pink. Vital Signs: 16:41 BP 156 / 69; Pulse 102; Resp 16; Temp 99.8(O); Pulse Ox 98% ; lt1 17:45 BP 158 / 71; Pulse 99; Resp 17; Pulse Ox 99% on R/A; rb1 18:40 BP 155 / 71; Pulse 90; Resp 17; Pulse Ox 98% on R/A; rb1 ED Course: 16:32 Patient arrived in ED. ag5 16:36 Demarcus Mancilla MD is Attending Physician. kdr 16:45 Arm band placed on right wrist. rb1 16:45 Patient has correct armband on for positive identification. Bed in low position. Call rb1 light in reach. Side rails up X 1. Pulse ox on. NIBP on. 17:24 Nory Escobedo, RN is Primary Nurse. rb1 17:31 Triage completed. rb1 18:16 Missed attempt(s): 22 gauge in right forearm. lt1 18:16 Missed attempt(s): 22 gauge in left forearm. lt1 18:16 Missed attempt(s): 24 gauge in left hand. lt1 19:03 No provider procedures requiring assistance completed. Patient did not have IV access rb1 during this emergency room visit. 19:04 Missed attempt(s): 22 gauge in left antecubital area. 24 gauge in right forearm. em1 Bleeding controlled, band aid applied, catheter tip intact. Administered Medications: 17:49 Drug: Motrin 600 mg Route: PO; rb1 18:21 Follow up: Response: No adverse reaction rb1 17:49 Drug: Zofran (Ondansetron) 4 mg Route: PO; rb1 18:21 Follow up: Response: No adverse reaction; Nausea unchanged rb1 18:20 Not Given (Provider changed route.): TORadol - Ketorolac 15 mg IVP once rb1 18:27 Drug: Potassium Chloride 20 mEq Route: PO; rb1 19:00 Follow up: Response: No adverse reaction rb1 18:27 Drug: Phenergan 25 mg Route: PO; rb1 19:00 Follow up: Response: No adverse reaction rb1 18:27 Drug: TORadol - Ketorolac 15 mg Route: IM; Site: right deltoid; rb1 18:45 Follow up: Response: No adverse reaction rb1 18:43 Not Given (provider discretion): NS 0.9% 1000 ml IV at 1 bolus Per protocol; 1000 mL rb1 bolus 18:43 Not Given (provider discretion): Zofran (Ondansetron) 4 mg IVP once; over 2 minutes rb1 Outcome: 18:40 Discharge ordered by . kdr 19:03 Discharged to home ambulatory. rb1 19:03 Condition: stable 19:03 Discharge instructions given to patient, Instructed on discharge instructions, follow up and referral plans. medication usage, Demonstrated understanding of instructions, follow-up care, medications, Prescriptions given X 1. 19:05 Patient left the ED. rb1 Signatures: Demarcus Mancilla MD MD kdr Ryan Briggs em1 Nory Escobedo, RN RN rb1 Mahesh Leone ag5 Jigna Broussard lt1
--- NOTE | 2020-02-15 18:41 | EDPHYS ---
Physician Documentation [facility] Name: Tiffany Quinn Age: 49 yrs Sex: Female : 1970 Arrival Date: 02/15/2020 Time: 16:32 Bed 19 Private MD: ED Physician Demarcus Mancilla HPI: 02/14 17:54 This 49 yrs old Female presents to ER via Ambulatory with complaints of kdr Fever, Nausea. 17:55 The patient has been feeling poorly for the last two weeks. She had had n/v, occasional kdr loose stool and subjective fever. Her s/s have been mild.. Onset: The symptoms/episode began/occurred gradually, 2 week(s) ago. Severity of symptoms: At their worst the symptoms were mild moderate just prior to arrival, in the emergency department the symptoms are unchanged. The patient has not experienced similar symptoms in the past. The patient has not recently seen a physician. 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 - Social history:: Smoking status: Patient/guardian denies using. ROS: 17:55 Constitutional: Negative for objective fever, chills, and weight loss, Eyes: Negative kdr for injury, pain, redness, and discharge, Neck: Negative for injury, pain, and swelling, Cardiovascular: Negative for chest pain, palpitations, and edema, Respiratory: Negative for shortness of breath, cough, wheezing, and pleuritic chest pain, Abdomen/GI: Negative for abdominal pain, nausea, vomiting, diarrhea, and constipation, Back: Negative for injury and pain, : Negative for injury, bleeding, discharge, and swelling, MS/Extremity: Negative for injury and deformity, Skin: Negative for injury, rash, and discoloration, Neuro: Negative for headache, weakness, numbness, tingling, and seizure activity. Allergy/Immunology: Negative for hives, rash, and allergies, Endocrine: Negative for neck swelling, polydipsia, polyuria, polyphagia, and marked weight changes, Hematologic/Lymphatic: Negative for swollen nodes, abnormal bleeding, and unusual bruising. 17:55 Abdomen/GI: Positive for nausea, vomiting, and diarrhea, Negative for abdominal cramps, abdominal distension, anorexia, dysphagia, hematemesis, black/tarry stool, rectal pain, rectal bleeding, bowel incontinence, flatulence. 17:55 Psych: Positive for anxiety, Negative for depression, drug dependence, alcohol dependence, auditory hallucinations, visual hallucinations, homicidal ideation, insomnia, suicide gesture, suicidal ideation. Exam: 17:55 Constitutional: This is a well developed, well nourished patient who is awake, alert, kdr and in no acute distress. Head/Face: Normocephalic, atraumatic. Eyes: Pupils equal round and reactive to light, extra-ocular motions intact. Lids and lashes normal. Conjunctiva and sclera are non-icteric and not injected. Cornea within normal limits. Periorbital areas with no swelling, redness, or edema. Neck: Trachea midline, no thyromegaly or masses palpated, and no cervical lymphadenopathy. Supple, full range of motion without nuchal rigidity, or vertebral point tenderness. No Meningismus. Chest/axilla: Normal chest wall appearance and motion. Nontender with no deformity. No lesions are appreciated. Cardiovascular: Regular rate and rhythm with a normal S1 and S2. No gallops, murmurs, or rubs. Normal PMI, no JVD. No pulse deficits. Respiratory: Lungs have equal breath sounds bilaterally, clear to auscultation and percussion. No rales, rhonchi or wheezes noted. No increased work of breathing, no retractions or nasal flaring. Abdomen/GI: Soft, non-tender, with normal bowel sounds. No distension or tympany. No guarding or rebound. No evidence of tenderness throughout. Back: No spinal tenderness. No costovertebral tenderness. Full range of motion. Skin: Warm, dry with normal turgor. Normal color with no rashes, no lesions, and no evidence of cellulitis. MS/ Extremity: Pulses equal, no cyanosis. Neurovascular intact. Full, normal range of motion. Neuro: Awake and alert, GCS 15, oriented to person, place, time, and situation. Cranial nerves II-XII grossly intact. Motor strength 5/5 in all extremities. Sensory grossly intact. Cerebellar exam normal. Normal gait. 17:55 Psych: Affect is flat, Oriented to person, place, time, Patient has no thoughts/intents to harm self or others. Judgement / Insight is normal. Memory is normal. Delusions/hallucinations are not present. Vital Signs: 16:41 BP 156 / 69; Pulse 102; Resp 16; Temp 99.8(O); Pulse Ox 98% ; lt1 17:45 BP 158 / 71; Pulse 99; Resp 17; Pulse Ox 99% on R/A; rb1 18:40 BP 155 / 71; Pulse 90; Resp 17; Pulse Ox 98% on R/A; rb1 MDM: 17:55 Data reviewed: vital signs, nurses notes, lab test result(s). Counseling: I had a kdr detailed discussion with the patient and/or guardian regarding: the historical points, exam findings, and any diagnostic results supporting the discharge/admit diagnosis, lab results, the need for outpatient follow up. 18:40 Patient medically screened. [facility] 02/14 16:49 Order name: Basic Metabolic Panel; Complete Time: 17:41 [facility] 02/14 16:49 Order name: CBC with Diff; Complete Time: 17:28 [facility] 02/14 16:49 Order name: Hepatic Function; Complete Time: 17:41 [facility] 02/14 18:31 Order name: Urine Dipstick--Ancillary (enter results) [facility] 02/14 18:31 Order name: Urine --Ancillary (enter results) [facility] 02/14 16:49 Order name: Labs collected and sent; Complete Time: 17:10 [facility] 02/14 16:50 Order name: Urine Dipstick-Ancillary (obtain specimen); Complete Time: 18:30 kdr Administered Medications: 17:49 Drug: Motrin 600 mg Route: PO; rb1 18:21 Follow up: Response: No adverse reaction rb1 17:49 Drug: Zofran (Ondansetron) 4 mg Route: PO; rb1 18:21 Follow up: Response: No adverse reaction; Nausea unchanged rb1 18:20 Not Given (Provider changed route.): TORadol - Ketorolac 15 mg IVP once rb1 18:27 Drug: Potassium Chloride 20 mEq Route: PO; rb1 19:00 Follow up: Response: No adverse reaction rb1 18:27 Drug: Phenergan 25 mg Route: PO; rb1 19:00 Follow up: Response: No adverse reaction rb1 18:27 Drug: TORadol - Ketorolac 15 mg Route: IM; Site: right deltoid; rb1 18:45 Follow up: Response: No adverse reaction rb1 18:43 Not Given (provider discretion): NS 0.9% 1000 ml IV at 1 bolus Per protocol; 1000 mL rb1 bolus 18:43 Not Given (provider discretion): Zofran (Ondansetron) 4 mg IVP once; over 2 minutes rb1 Disposition: 02/15/20 18:40 Discharged to Home. Impression: Vomiting, Nausea and vomiting, Diarrhea, unspecified. - Condition is Stable. - Discharge Instructions: Nausea and Vomiting, Adult, [id number]. - Prescriptions for promethazine 25 mg Oral Tablet - take 1 tablet by ORAL route every 6 hours As needed; 20 tablet. - Medication Reconciliation Form, Thank You Letter form. - Follow up: Private Physician; When: 2 - 3 days; Reason: If symptoms return, Further diagnostic work-up, Recheck today's complaints, Continuance of care, Re-evaluation by your physician. - Problem is an acute exacerbation. - Symptoms have improved. Signatures: Dispatcher [employer] EDMS Demarcus Mancilla MD MD kdr Nory Escobedo RN RN rb1 Corrections: (The following items were deleted from the chart) 18:44 16:49 IV Saline Lock ordered. kdr rb1 19:05 18:40 02/15/2020 18:40 Discharged to Home. Impression: Vomiting; Nausea and vomiting; rb1 Diarrhea, unspecified. Condition is Stable. Forms are Medication Reconciliation Form, Thank You Letter, Antibiotic Education, Prescription Opioid Use. Follow up: Private Physician; When: 2 - 3 days; Reason: If symptoms return, Further diagnostic work-up, Recheck today's complaints, Continuance of care, Re-evaluation by your physician. Problem is an acute exacerbation. Symptoms have improved. kdr
[2020-02-15 19:17] VITALS: BP 156/69; TEMP 99.8; O2SAT 98
[2020-02-15 19:55] LABS: Urine Blood NEGATIVE (NEG); Urine Glucose NEGATIVE (NEG); Urine Protein NEGATIVE (NEG)
== END 2020-02-15 19:05 | disposition home or self-care (01) ==
LOC: ER 16:31
DX: R19.7 Diarrhea, unspecified (principal); F20.9 Schizophrenia, unspecified; F90.9 Attention-deficit hyperactivity disorder, unspecified type; Z88.5 Allergy status to narcotic agent; Z98.82 Breast implant status
CPT/HCPCS: 36415; 80048; 80076; 81003; 81025; 85025; 96372; 99283; Q0169

== ENCOUNTER 2020-02-27 17:10 | Emergency (ER) | payer OTHER ==
--- OUTSIDE RECORDS SUMMARY | 2020-02-27 17:14 | XMS REPORT ---
:1970 Author Organization [facility] t Address [address] [place] [address] Care Team Providers Name Role Phone UNKNOWN Primary Care Provider Unavailable AFUWAPE Unavailable Unavailable Problems This patient has no known problems. Allergies, Adverse Reactions, Alerts This patient has no known allergies or adverse reactions. Medications This patient has no known medications. Encounters Start End Encounter Admission Attending Care Care Encounter Date/Time Date/Time Type Type Clinicians Facility Department ID 2019-01-22 Inpatient E [facility] [id number] 04:39:00 2018-02-21 2018-02-20 Inpatient E [facility] [id number] 14:48:00 13:18:00 [facility] Results Test Description [...] = <0.01 g/dL 0.00-0.01 ETOHU) Comprehensive Metabolic [id number] 14:36:00 Test Item Value Reference Range Comments [...] bishop [employer],http: //nkdep.nih .gov Urinalysis [id number] 14:32:00 Test Item Value Reference Range Comments Color (test code = COLOR) Yellow Yellow,Straw,Pl yellow Clarity (test code = CLAR) Clear Clear Specific [place] (test code = SPGR) 1.024 1.001-1.035 pH [...] code = BACT) Few /HPF CBC with [id number] 14:21:00 Test Item Value Reference Range Comments [...] (test code = ALYMPH) 3.0 K/cumm 0.5-4.6 Zapata Abs (test code = AMONO) 0.5 K/cumm 0.0-1.2 Eos Abs (test code = AEOS) 0.19 K/cumm 0.00-0.74 Baso Abs (test code = ABASO) 0.1 K/cumm 0.00-0.21
[2020-02-27] MEDS ORDERED: NA CHLORIDE 0.9% 0 ML ONE (17:45)
[2020-02-27] MEDS ORDERED: DIPHENHYDRAMINE 50 MG/ML VIAL ONE (17:45)
[2020-02-27] MEDS ORDERED: METOCLOPRAMIDE 10 MG/2mL INJ ONE (17:45)
[2020-02-27] MEDS ORDERED: ACETAMINOPHEN 325 MG TABLET ONE (18:56)
--- NOTE | 2020-02-27 19:13 | EDPHYS ---
Physician Documentation [facility] Name: Tiffany Quinn Age: 49 yrs Sex: Female : 1970 Arrival Date: 02/27/2020 Time: 17:13 Bed 14 Private MD: ED Physician Gio Jackson HPI: 02/26 17:20 This 49 yrs old Female presents to ER via Ambulatory with complaints of Sinus jmm Congestion, Headache, Anxiety, Vomiting. 17:20 The patient complains of pain to the forehead. jmm 17:20 The patient describes the headache as aching. Onset: The symptoms/episode jmm began/occurred gradually, 02/19/2020. Associated signs and symptoms: Pertinent positives: vomiting. This is a 49 year old female with a history of schizophrenia, migraines that presents to the ED with complaints of frontal headaches which have been unresolved with prescribed imitrex. Patient states she has had similar headaches in the past. . Historical: - Allergies: 17:24 Stadol; ll1 17:24 Toradol; ll1 - PMHx: 17:24 Schizophrenia; PSYCH PROBLEMS; Migraines; Hernia; ADD/ADHD; Seizures; ll1 - PSHx: 17:24 Hernia repair; breast implants; Cholecystectomy; ll1 - Social history:: Smoking status: Patient denies any tobacco usage or history of. Patient/guardian denies using alcohol, street drugs, tobacco products. ROS: 17:20 Constitutional: Negative for fever, chills, and weight loss, Cardiovascular: Negative jmm for chest pain, palpitations, and edema, Respiratory: Negative for shortness of breath, cough, wheezing, and pleuritic chest pain. 17:20 Abdomen/GI: Positive for vomiting. 17:20 Neuro: Positive for headache. 17:20 All other systems are negative. Exam: 17:20 Constitutional: This is a well developed, well nourished patient who is awake, alert, jmm and in no acute distress. Head/Face: atraumatic. Eyes: EOMI, no conjunctival erythema appreciated ENT: Moist Mucus Membranes Neck: Trachea midline, Supple Chest/axilla: Normal chest wall appearance and motion. Cardiovascular: Regular rate and rhythm. No edema appreciated Respiratory: Normal respirations, no respiratory distress appreciated Abdomen/GI: Non distended, soft Back: Normal ROM Skin: General appearance color normal MS/ Extremity: Moves all extremities, no obvious deformities appreciated, no edema noted to the lower extremities Neuro: Awake and alert, normal gait Psych: Behavior is normal, Mood is normal, Patient is cooperative and pleasant Vital Signs: 17:20 BP 131 / 97; Pulse 74; Resp 17; Temp 98.8; Pulse Ox 99% ; Pain 10/10; ll1 MDM: 17:26 Patient medically screened. [facility] 19:11 Data reviewed: vital signs, nurses notes. Counseling: I had a detailed discussion with raymundo the patient and/or guardian regarding: the historical points, exam findings, and any diagnostic results supporting the discharge/admit diagnosis, the need for outpatient follow up, to return to the emergency department if symptoms worsen or persist or if there are any questions or concerns that arise at home. 19:11 ED course: Headache similar to previous migraines. Patient is advised to follow up with [facility] pcp for reevaluation. Patient understood and agrees with the plan of care. . Administered Medications: 18:54 Drug: Tylenol 650 mg Route: PO; 19:28 Follow up: Response: No adverse reaction 19:00 Not Given (No IV access ): diphenhydrAMINE 12.5 mg IVP once 19:01 Not Given (unable to gain IV access): NS 0.9% 500 ml IV at bolus once 19:01 Not Given (unable to access IV): Reglan 20 mg IVP once; put in bolus Disposition: 02/27/20 19:13 Discharged to Home. Impression: Headache. - Condition is Stable. - Discharge Instructions: Migraine Headache. - Prescriptions for promethazine 12.5 mg Rectal suppository - insert 1 suppository by RECTAL route 2 times per day; 14 suppository. Fiorinal 50- 325-40 mg Oral Capsule - take 1 capsule by ORAL route every 4 hours As needed - not to exceed 6 capsules per day; 12 capsule. - Medication Reconciliation Form, Thank You Letter, Antibiotic Education, Prescription Opioid Use form. - Follow up: Private Physician; When: 2 - 3 days; Reason: Recheck today's complaints, Continuance of care, Re-evaluation by your physician. Signatures: Bernard Rodriguez PA PA Amy Mariee RN RN Jitendra, Lynsay, RN RN ll1 Corrections: (The following items were deleted from the chart) 18:53 18:03 IV Saline Lock ordered. raymundo 19:21 19:13 02/27/2020 19:13 Discharged to Home. Impression: Headache. Condition is Stable. Forms are Medication Reconciliation Form, Thank You Letter, Antibiotic Education, Prescription Opioid Use. Follow up: Private Physician; When: 2 - 3 days; Reason: Recheck today's complaints, Continuance of care, Re-evaluation by your physician. raymundo
--- NOTE | 2020-02-27 19:13 | ER ---
Nurse's Notes [facility] Name: Tiffany Quinn Age: 49 yrs Sex: Female : 1970 Arrival Date: 02/27/2020 Time: 17:13 Bed 14 Private MD: Diagnosis: Headache Presentation: 02/26 17:20 Chief complaint: Patient states: HALE's with N/V since February 10. Her doctor called her ll1 in imitrex, motrin, and zofran. They aren't helping. Specifically asked for Fioricet and phenergan. Coronavirus screen: Proceed with normal triage. Patient reports a cough. Patient denies shortness of breath or difficulty breathing. Patient denies measured and/or subjective temperature greater than 100.4F prior to today's visit. Patient denies travel on a cruise ship or to a country the [facility] currently lists as an affected area. Patient denies contact with known and/or suspected case of COVID-19. Ebola Screen: Patient denies travel to an Ebola-affected area in the 21 days before illness onset. Initial Sepsis Screen: Does the patient meet any 2 criteria? No. Patient's initial sepsis screen is negative. Does the patient have a suspected source of infection? No. Patient's initial sepsis screen is negative. Risk Assessment: Do you want to hurt yourself or someone else? Patient reports no desire to harm self or others. Onset of symptoms was February 11, 2020. 17:20 Method Of Arrival: Ambulatory 1 17:20 Acuity: MANUEL 3 ll1 Historical: - Allergies: 17:24 Stadol; ll1 17:24 Toradol; ll1 - PMHx: 17:24 Schizophrenia; PSYCH PROBLEMS; Migraines; Hernia; ADD/ADHD; Seizures; ll1 - PSHx: 17:24 Hernia repair; breast implants; Cholecystectomy; ll1 - Social history:: Smoking status: Patient denies any tobacco usage or history of. Patient/guardian denies using alcohol, street drugs, tobacco products. Screenin:19 Abuse screen: Denies threats or abuse. Nutritional screening: No deficits noted. Tuberculosis screening: No symptoms or risk factors identified. Fall Risk None identified. Assessment: 17:20 General: Appears in no apparent distress. Behavior is cooperative. Pain: Complains of ah pain in forehead Pain does not radiate. Pain currently is 10 out of 10 on a pain scale. Quality of pain is described as throbbing, Pain began intermittent for aprox 3 weeks Is intermittent. Neuro: Level of Consciousness is awake, alert, Oriented to person, place, time, situation. Cardiovascular: Denies chest pain. Respiratory: Airway is patent Respiratory effort is even, unlabored, Respiratory pattern is regular, symmetrical. GI: No signs and/or symptoms were reported involving the gastrointestinal system. Bowel sounds present X 4 quads. : No signs and/or symptoms were reported regarding the genitourinary system. EENT: No signs and/or symptoms were reported regarding the EENT system. EENT: No signs and/or symptoms were reported regarding the EENT system. Reports nasal congestion since 3 weeks. Derm: No signs and/or symptoms reported regarding the dermatologic system. Musculoskeletal: No signs and/or symptoms reported regarding the musculoskeletal system. 18:54 Reassessment: Unable to get IV access at this time. Informed provider and received order for Tylenol 650mg PO. Vital Signs: 17:20 BP 131 / 97; Pulse 74; Resp 17; Temp 98.8; Pulse Ox 99% ; Pain 10/10; ll1 ED Course: 17:13 Patient arrived in ED. ag5 17:17 Bernard Rodriguez PA is PHCP. [facility] 17:17 Gio Jackson MD is Attending Physician. [facility] 17:23 Triage completed. ll1 17:24 Arm band placed on Patient placed in an exam room, on a stretcher. ll1 17:36 Amy Cage, RN is Primary Nurse. ah 17:45 Missed attempt(s): 22 gauge in left hand. Bleeding controlled, band aid applied, ah catheter tip intact. 17:50 Missed attempt(s): 22 gauge in left wrist. Bleeding controlled, band aid applied, jp3 catheter tip intact. 17:55 Missed attempt(s): 24 gauge in right wrist. Bleeding controlled, band aid applied, jp3 catheter tip intact. 18:10 Missed attempt(s): 24 gauge in right hand. Bleeding controlled, band aid applied, jp3 catheter tip intact. Patient maintains SpO2 saturation greater than 95% on room air. 18:27 Bed in low position. Call light in reach. Side rails up X 1. Warm blanket given. Verbal jp3 reassurance given. Pulse ox on. NIBP on. 18:42 Missed attempt(s): 24 gauge in right forearm. Bleeding controlled, band aid applied, hb catheter tip intact. 18:46 Missed attempt(s): 24 gauge in right thumb. Bleeding controlled, band aid applied, hb catheter tip intact. 19:13 No provider procedures requiring assistance completed. Patient did not have IV access during this emergency room visit. Administered Medications: 18:54 Drug: Tylenol 650 mg Route: PO; 19:28 Follow up: Response: No adverse reaction 19:00 Not Given (No IV access ): diphenhydrAMINE 12.5 mg IVP once 19:01 Not Given (unable to gain IV access): NS 0.9% 500 ml IV at bolus once 19:01 Not Given (unable to access IV): Reglan 20 mg IVP once; put in bolus Outcome: 19:13 Discharge ordered by . [email or web address] 19:14 Discharged to home ambulatory. 19:14 Condition: stable 19:14 Discharge instructions given to patient, Instructed on discharge instructions, follow up and referral plans. Demonstrated understanding of instructions, follow-up care. 19:21 Patient left the ED. Signatures: Bernard Rodriguez PA PA jmm Baxter, Heather, RN RN Caesar Markham jp3 Mahesh Leone ag5 Amy Cage, RN RN Lorrie Ham, RN RN ll1
[2020-02-27 22:45] VITALS: BP 131/97; TEMP 98.8; O2SAT 99
== END 2020-02-27 19:21 | disposition home or self-care (01) ==
LOC: ER 17:10
DX: R51 Headache (principal); R11.10 Vomiting, unspecified; F20.9 Schizophrenia, unspecified; Z88.5 Allergy status to narcotic agent; Z98.82 Breast implant status
CPT/HCPCS: 99284; J1200; J2765; J7040

== ENCOUNTER 2020-03-04 07:12 | Emergency (ER) | payer OTHER ==
--- OUTSIDE RECORDS SUMMARY | 2020-03-04 07:14 | XMS REPORT | Continuity of Care Document ---
:1970 Author Organization [employer] Care Team Providers Name Role Phone [employer] Unavailable Un available Problems Problem Status Onset Classification Date Comments Sourc e Date Reported LOW PB Active 01/22/20 [facility] [place] INFECTIOUS Active 01/22/20 [facility]IT[facility] [place] [facility] COLITIS INFECTIOUS Active GA[facility]ITIS [facility], Medications Medication Details Route Status Patient Ordering Order Source Instructions Provider Date Ondansetron 4 4 mg = 1 tab, Active MG Oral Tablet PO, Q6H, PRN 2018 [place] [Zofran] Nausea/Vomitin g, # 20 tab, 0 Refill(s) tramadol 50 mg = 1 tab, Active hydrochloride PO, Q6H, PRN 2018 [facility] 50 MG Oral Pain Score Tablet 1-3, X 5 day, # 20 tab, 0 Refill(s) Metronidazole 500 mg = 1 Active 500 MG Oral tab, PO, 2019 [facility] Tablet [id number], X 4 day, # 12 tab, 0 Refill(s) ciprofloxacin 500 mg = 1 Active 500 mg oral tab, PO, 2019 [facility] tablet [id number], X 4 day, # 8 tab, 0 Refill(s) Potassium Notes: (Same Inactive Chloride as: K-Dur 20) 2018 [facility] "Do Not Crush" Give with food and full glass of water For patients unable to swallow tablet, dissolve in one half glass of water. Allow about 2 minutes for the tablets to disintegrate. Stir before giving to prepare slurry and administer. Please exclude Patient’ s with feeding tube less than 14 Tristan[place] (Dobhoff, J-tube etc) and pediatric and patients. Strattera 0.5 mg/kg, No Longer Route: PO, Active 2018 [facility] QAM, Dosing Weight 75, kg, Start date: 01/24/19 9:00:00 CDT, Duration: 30 day, Stop date: 02/22/19 9:00:00 CDT lithium Notes: Do not No Longer crush or chew. Active 2018 [facility] (Same as: Eskalith-CR) Risperdal Notes: (Same No Longer as: Risperdal) Active 2018 [facility] Strattera 1 mg, Route: No Longer PO, QPM, Active 2018 [facility] Dosing Weight 75, kg, Start date: 01/23/19 17:00:00 CDT, Duration: 30 day, Stop date: 02/21/19 17:00:00 CDT normal saline 1,000 mL, No Longer 0.9% IV 1,000 Rate: 100 [facility], Infuse over: 10 hr, Route: IV, Dosing Weight 75 kg, Total Volume: 1,000, Start date: 01/23/19 14:18:00 CDT, Duration: 30 day, Stop date: 02/22/19 14:17:00 CDT, 1.84, m2 Clonazepam Notes: (Same No Longer As: KlonoPIN) Active 2018 [facility] Flagyl Notes: (Same No Longer as: Flagyl) Active 2018 [facility] Take with food/ avoid alcohol Cipro Notes: May No Longer interfere Active 2018 [facility] w/enteral feedings - Take 1 hr before or 2 hrs after antacids, dairy pdt & minerals. On empty stomach. tramadol 50 mg = 1 tab, No Longer hydrochloride PO, Q6H, PRN Active 2018 [facility] 50 MG Oral Pain Score Tablet 1-3, 0 Refill(s) potassium 40 mEq, PO, Active chloride 20 mEq ONCE, 0 2018 [facility] oral tablet, Refill(s) extended release Metronidazole 500 mg, PO, No Longer 500 MG Oral [id number], 0 Active 2018 [facility] Tablet [Flagyl] Refill(s) Ciprofloxacin 500 mg, PO, No Longer 500 MG Oral [id number], 0 Active 2018 [facility] Tablet [Cipro] Refill(s) Potassium Notes: (Same Inactive Chloride as: K-Dur 20) 2019 [facility] "Do Not Crush" Give with food and full glass of water For patients unable to swallow tablet, dissolve in one half glass of water. Allow about 2 minutes for the tablets to disintegrate. Stir before giving to prepare slurry and administer. Please exclude Patient’ s with feeding tube less than 14 [place] (Dobhoff, J-tube etc) and pediatric and patients. Pepcid Notes: (Same No Longer as: Pepcid) Active 2018 [facility] Strattera 0.5 mg/kg, PO, Active QAM, 0 2018 [facility] Refill(s) lithium 450 mg 450 mg = 1 Active oral tablet, tab, PO, 2018 [facility] extended Bedtime, # 60 release tab, 0 Refill(s) clonazePAM 0.5 0.5 mg = 1 Active mg oral tablet tab, PO, TID, 2018 [facility] # 90 tab, 0 Refill(s) Risperidone 0.5 0.5 mg = 1 Active MG Oral Tablet tab, PO, BID, 2018 [facility] [Risperdal] 0 Refill(s) Zosyn Notes: (Same No Longer as: Zosyn) Active 2018 [facility] Dosing based on Piperacillin component MEDICATION WASTE Product Size: 3375 mg Product Wasted: ___ mg Tramadol Notes: Not to No Longer exceed Active 2018 [facility] 400mg/day. (Same As: Ultram) normal saline 1,000 mL, No Longer 0.9% IV 1,000 Rate: 150 Active 2018 [facility] t mL ml/hr, Infuse over: 6.7 hr, Route: IV, Dosing Weight 75.994 kg, Total Volume: 1,000, Start date: 01/22/19 4:48:00 CDT, Duration: 30 day, Stop date: 02/21/19 4:47:00 CDT Ondansetron Notes: (Same No Longer as: Zofran) Active 2018 [facility] MEDICATION WASTE Product Size: 4 mg Product Wasted: ___ mg Glucagon 1 mg, Route: No Longer IM, Drug form: Active 2018 [facility] PDR/INJ, PRN, Dosing Weight 75.994, kg, PRN Blood Glucose Results, Start date: 01/22/19 4:47:00 CDT, Duration: 30 day, Stop date: 02/21/19 4:46:00 CDT Dextrose 50% 12.5 gm, 25 No Longer Syringe mL, Route: Active 2018 [facility] IVP, Drug Form: INJ, Dosing Weight 75.994, kg, PRN, PRN Blood Glucose Results, Start date: 01/22/19 4:47:00 CDT, Duration: 30 day, Stop date: 02/21/19 4:46:00 CDT Zofran Notes: (Same Inactive as: Zofran) 2018 [facility] MEDICATION WASTE Product Size: 4 mg Product Wasted: ___ mg NS (Bolus) IV 1,000 mL, Inactive 1,000 ml/hr, 2018 [facility] Infuse Over: 1 hr, Route: IV, 1,000, Drug form: INJ, ONCE, Priority: STAT, Dosing Weight 75.994 kg, Start date: 01/22/19 3:52:00 CDT, Stop date: 01/22/19 3:52:00 CDT Visipaque 320 Notes: (Same Inactive mg/mL as: 2019 [facility] injectable Visipaque). solution WASTE: F/P - Black; E - [employer] Zosyn Notes: (Same Inactive as: Zosyn) 2018 [facility] Dosing based on Piperacillin component MEDICATION WASTE Product Size: 3375 mg Product Wasted: ___ mg NS (Bolus) IV 1,000 mL, Inactive 1,000 ml/hr, 2018 [facility] Infuse Over: 1 hr, Route: IV, 1,000, Drug form: INJ, ONCE, Priority: STAT, Dosing Weight 75.994 kg, Start date: 01/22/19 0:44:00 CDT, Stop date: 01/22/19 0:44:00 CDT Zofran Notes: (Same No Longer as: Zofran) Active 2018 [facility] MEDICATION WASTE Product Size: 4 mg Product Wasted: ___ mg Saline Flush Notes: Same No Longer 0.9% as: BD Active 2018 [facility] Posiflush Sterile NS (Bolus) IV 1,000 mL, No Longer 1,000 ml/hr, Active 2018 [facility] Infuse Over: 1 hr, Route: IV, 1,000, Drug form: INJ, ONCE, Priority: STAT, Dosing Weight 75.994 kg, Start date: 01/21/19 23:51:00 CDT, Stop date: 01/21/19 23:51:00 CDT Allergies, Adverse Reactions, Alerts Substance Category Reaction Severity Reaction Status Date Comments S ource type Reported Phenergan Assertion Drug Active allergy [place] Immunizations No Data Provided for This Section Results Order Name Results Value Reference Date Interpretation Comments Sasha rce Range ELECTROLYT AGAP 8.6 10.0 - 01/26 ES 20.0 [facility] ELECTROLYT Chloride Lvl 107 95 - 109 01/26 [facility] ELECTROLYT CO2 27 24 - 32 01/26 [facility] ELECTROLYT Sodium Lvl 139 135 - 145 01/26 [facility] ELECTROLYT Potassium 3.6 3.5 - 5.1 01/26 [facility] Lv [facility] ELECTROLYT Creatinine 0.70 0.50 - 01/26 ES Lvl 1.40 [facility] ELECTROLYT Calcium Lvl 8.4 8.5 - 10.5 01/26 [facility] ELECTROLYT eGFR 103 01/26 Result Comment: The [facility] eGFR is calculated using the CKD-EPI formula. In most young, healthy individuals the eGFR will be >90 mL/min/1.73m2 . The eGFR declines with age. An eGFR of 60-89 may be normal in some populations, particularly the elderly, for whom the CKD-EPI formula has not been extensively validated. Use of the eGFR is not recommended in the following populations:< br/>
Kate viduals with unstable creatinine concentration s, including patients and those with serious co-morbid conditions.<b r/>
Patie nts with extremes in muscle mass or diet.

The data above are obtained from the National Kidney Disease Education Program (NKDEP) which additionally recommends that when the eGFR is used in patients with extremes of body mass index for purposes of drug dosing, the eGFR should be multiplied by the estimated BMI. ELECTROLYT Glucose Lvl 86 70 - 99 01/26 [facility] ELECTROLYT BUN 6 7 - 22 01/26 [facility] HEMATOLOGY Hgb 11.6 12.0 - 01/26 MH 16.0 [facility] HEMATOLOGY RBC 3.78 4.20 - 01/26 MH 5.40 /2018 [facility] HEMATOLOGY RDW 13.3 11.5 - 01/26 MH 14.5 [facility] HEMATOLOGY MCHC 34.0 32.0 - 01/26 MH 36.0 [facility] HEMATOLOGY WBC 6.3 3.7 - 10.4 01/26 [facility] HEMATOLOGY MCH 30.7 27.0 - 01/26 MH 31.0 [facility] HEMATOLOGY MCV 90.3 80.0 - 01/26 98.0 [facility] HEMATOLOGY Hct 34.2 36.0 - 01/26 MH 48.0 [facility] HEMATOLOGY Platelet 412 133 - 450 01/26 [facility] HEMATOLOGY MPV 7.5 7.4 - 10.4 01/26 [facility] CHEM PANEL eGFR 108 01/25 [facility] Comment: The [facility] eGFR is calculated using the CKD-EPI formula. In most young, healthy individuals the eGFR will be >90 mL/min/1.73m2 . The eGFR declines with age. An eGFR of 60-89 may be normal in some populations, particularly the elderly, for whom the CKD-EPI formula has not been extensively validated. Use of the eGFR is not recommended in the following populations:< br/>
Kate viduals with unstable creatinine concentration s, including patients and those with serious co-morbid conditions.<b r/>
Patie nts with extremes in muscle mass or diet.

The data above are obtained from the National Kidney Disease Education Program (NKDEP) which additionally recommends that when the eGFR is used in patients with extremes of body mass index for purposes of drug dosing, the eGFR should be multiplied by the estimated BMI. CHEM PANEL Calcium Lvl 8.5 8.5 - 10.5 01/25 [facility] CHEM PANEL AGAP 13.3 10.0 - 01/25 MH 20.0 [facility] CHEM PANEL CO2 24 24 - 32 01/25 [facility] CHEM PANEL Chloride Lvl 109 95 - 109 01/25 [facility] CHEM PANEL Glucose Lvl 81 70 - 99 01/25 [facility] CHEM PANEL BUN 2 7 - 22 01/25 [facility] CHEM PANEL Potassium 3.3 3.5 - 5.1 01/25 [facility] CHEM PANEL Creatinine 0.60 0.50 - 01/25 MH Lvl 1.40 [facility] CHEM PANEL Sodium Lvl 143 135 - 145 01/25 [facility] MOLECULAR C difficile Negative Negative 01/23 DIAGNOSTIC DNA (01/23/19 11:22 AM) [facility] CHEM PANEL Procalcitoni 2.76 0.00 - 01/23 Result n Lvl 0.10 Comment: [facility] Critical Result(s) called to A Levin at 01/23/2019 12:56 by cz. Read back OK. CHEM PANEL Lactic Acid 0.9 0.5 - 2.2 01/23 [facility] CHEM PANEL Magnesium 2.0 1.8 - 2.4 01/23 [facility] CHEM PANEL eGFR 115 01/23 Result Comment: The [facility] eGFR is calculated using the CKD-EPI formula. In most young, healthy individuals the eGFR will be >90 mL/min/1.73m2 . The eGFR declines with age. An eGFR of 60-89 may be normal in some populations, particularly the elderly, for whom the CKD-EPI formula has not been extensively validated. Use of the eGFR is not recommended in the following populations:< br/>
Kate viduals with unstable creatinine concentration s, including patients and those with serious co-morbid conditions.<b r/>
Patie nts with extremes in muscle mass or diet.

The data above are obtained from the National Kidney Disease Education Program (NKDEP) which additionally recommends that when the eGFR is used in patients with extremes of body mass index for purposes of drug dosing, the eGFR should be multiplied by the estimated BMI. CHEM PANEL CO2 23 24 - 32 01/23 [facility] CHEM PANEL Chloride Lvl 113 95 - 109 01/23 [facility] CHEM PANEL Potassium 3.1 3.5 - 5.1 01/23 [facility] CHEM PANEL Sodium Lvl 143 135 - 145 01/23 [facility] CHEM PANEL BUN 5 7 - 22 01/23 [facility] CHEM PANEL Creatinine 0.50 0.50 - 04 MH Lvl 1.40 /2018 [facility] CHEM PANEL Calcium Lvl 7.8 8.5 - 10.5 01/23 [facility] CHEM PANEL Glucose Lvl 83 70 - 99 01/23 [facility] CHEM PANEL AGAP 10.1 10.0 - 01/23 20.0 /2018 [facility] HEMATOLOGY Eosinophils 0.2 0.0 - 0.5 01/23 # [facility] HEMATOLOGY Monocytes # 0.8 0.0 - 0.8 01/23 [facility] HEMATOLOGY Neutrophils 5.5 1.5 - 8.1 01/23 [facility] HEMATOLOGY Lymphocytes 2.2 1.0 - 5.5 01/23 [facility] HEMATOLOGY Basophils 0.1 0.0 - 1.0 01/23 [facility] HEMATOLOGY Segs 63.6 45.0 - 01/23 75.0 /2018 [facility] HEMATOLOGY Monocytes 8.9 2.0 - 12.0 01/23 [facility] HEMATOLOGY Eosinophils 2.3 0.0 - 4.0 01/23 [facility] HEMATOLOGY RBC Morph Normal 01/23 (01/23/19 5:50 AM) [facility] HEMATOLOGY Plt Morph Normal 01/23 (01/23/19 5:50 AM) [facility] HEMATOLOGY Lymphocytes 25.1 20.0 - 01/23 40.0 [facility] HEMATOLOGY RDW 13.1 11.5 - 01/23 14.5 /2018 [facility] HEMATOLOGY Platelet 327 133 - 450 01/23 [facility] HEMATOLOGY MPV 7.7 7.4 - 10.4 01/23 [facility] HEMATOLOGY WBC 8.6 3.7 - 10.4 01/23 [facility] HEMATOLOGY Hgb 10.0 12.0 - 01/23 Result MH 16.0 Comment: [facility] Notified Raghavendra 01/23/2019 07:32 by smt. HEMATOLOGY MCHC 34.6 32.0 - 04 36.0 /2018 [facility] HEMATOLOGY Hct 28.7 36.0 - 01/23 48.0 /2018 [facility] HEMATOLOGY MCV 87.8 80.0 - 01/23 98.0 /2018 [facility] HEMATOLOGY MCH 30.4 27.0 - 04 31.0 [facility] HEMATOLOGY RBC 3.27 4.20 - 04 5.40 /2019 [facility] Culture: Normal Enteric Pam Isolated 01/22 Stool No Salmonella Or Shigella Isolated [facility] No Campylobacter Isolated CHEM PANEL Lactic Acid 2.4 0.5 - 2.2 01/22 Lvl [facility] CHEM PANEL Lactic Acid 3.0 0.5 - 2.2 01/22 Lvl [facility] URINE AND UA Spec Grav 1.014 <=1.030 01/22 STOOL [facility] URINE AND UA pH 6.0 5.0 - 8.0 01/22 STOOL [facility] URINE AND UA Protein Negative Negative 01/22 STOOL (01/22/19 2:14 AM) [facility] Glucose Negative Negative 01/22 STOOL *NA* /2018 [facility] (01/22/19 2:14 AM) URINE AND UA Ketones Negative Negative 01/22 STOOL *NA* /2018 [facility] (01/22/19 2:14 AM) URINE AND UA Bili Negative Negative 01/22 STOOL *NA* [facility] (01/22/19 2:14 AM) URINE AND UA Nitrite Negative Negative 01/22 STOOL (01/22/19 2:14 AM) /2018 [place] URINE AND UA <=1.0 0.1 - 1.0 01/22 STOOL Urobilinogen mg/dL [facility] URINE AND UA Sq Epi Occasional Few /LPF 01/22 STOOL /LPF /2018 [facility] URINE AND UA Leuk Est Negative Negative 01/22 STOOL (01/22/19 2:14 AM) /[facility] Blood Negative Negative 01/22 STOOL (01/22/19 2:14 AM) /2018 [facility] URINE AND UA Mucus Few /LPF None Seen 01/22 STOOL /LPF [facility] URINE AND UA RBC <1 0 - 2 01/22 STOOL [facility] URINE AND UA Hyal Cast 25 0 - 2 01/22 STOOL [facility] URINE AND UA WBC 2 0 - 5 01/22 STOOL [facility] URINE AND UA Color Light Yellow Yellow 01/22 STOOL *NA* [facility] (01/22/19 2:14 AM) URINE AND UA Turbidity Clear Clear 01/22 STOOL (01/22/19 2:14 AM) /2018 [facility] est METAL [place] Lvl 0.90 0.50 - 01/22 1.50 /2018 [facility] BLOOD BANK ABO/Rh A POS 01/22 RESULTS /2018 [facility] BLOOD BANK Antibody Negative 01/22 RESULTS Scrn (01/22/19 12:01 AM) /2018 [facility] CARDIAC Troponin-I <0.02 0.00 - 01/22 ENZYMES 0.40 [facility] CARDIAC Total CK 49 12 - 191 01/22 ENZYMES /2018 [facility] CHEM PANEL Bili Total 0.6 0.2 - 1.3 01/22 /2018 [facility] CHEM PANEL Alk Phos 100 39 - 136 01/22 /2018 [facility] CHEM PANEL Albumin Lvl 4.0 3.5 - 5.0 01/22 [facility] CHEM PANEL AST 17 0 - 37 01/22 /2018 [facility] CHEM PANEL ALT 25 0 - 65 01/22 [facility] CHEM PANEL Total 8.1 6.4 - 8.4 01/22 Protein /2018 [facility] CHEM PANEL B/C Ratio 20 6 - 25 01/22 /2018 [facility] CHEM PANEL A/G Ratio 1.0 0.7 - 1.6 01/22 /2018 [facility] CHEM PANEL Globulin 4.1 2.7 - 4.2 01/22 /2018 [facility] CHEM PANEL Procalcitoni 6.90 0.00 - 01/22 Result n Lvl 0.10 Comment: [facility] Critical Result(s) called to Eliana Vega at 01/22/2019 00:50 by VV. Read back OK. ENDOCRINOL S Preg Negative Negative 01/22 OGY *NA* /2018 [facility] (01/22/19 12:01 AM) HEMATOLOGY Eosinophils 0.1 0.0 - 0.5 01/22 MH # /2019 [facility] HEMATOLOGY Monocytes # 0.7 0.0 - 0.8 01/22 /2018 [facility] HEMATOLOGY Basophils # 0.0 0.0 - 0.2 01/22 /2018 [facility] HEMATOLOGY Basophils 0.0 0.0 - 1.0 01/22 /2018 [facility] HEMATOLOGY Eosinophils 0.9 0.0 - 4.0 01/22 /2018 [facility] HEMATOLOGY Neutrophils 8.6 1.5 - 8.1 01/22 # /2019 [facility] HEMATOLOGY Lymphocytes 0.6 1.0 - 5.5 01/22 MH # /[address] [facility] Segs 86.5 45.0 - 01/22 MH 75.0 /[address] [facility] Lymphocytes 5.7 20.0 - 01/22 MH 40.0 /[address] [facility] Monocytes 6.9 2.0 - 12.0 01/22 /[address] [facility] WBC 9.9 3.7 - 10.4 01/22 /[address] [facility] MCHC 32.8 32.0 - 01/22 MH 36.0 /[address] [facility] RDW 13.6 11.5 - 01/22 14.5 /[address] [facility] Platelet 443 133 - 450 01/[address] [facility] MPV 7.3 7.4 - 10.4 01/[address] [facility] Hgb 14.0 12.0 - 01/22 16.0 /[address] [facility] RBC 4.85 4.20 - 01/22 5.40 /[address] [facility] Hct 42.7 36.0 - 01/22 MH 48.0 /[address] [facility] MCH 29.0 27.0 - 01/22 31.0 /[address] [facility] MCV 88.2 80.0 - 01/22 98.0 /[address] [facility] INR 0.96 0.85 - 01/22 MH 1.17 /[address] [facility] PT 12.6 12.0 - 01/22 14.7 /[address] [facility] PTT 25.9 22.9 - 01/22 35.8 /2018 [facility] Pathology Reports No Data Provided for This Section Diagnostic Reports Report Value Date Source Ankle 2 views DX Exam: Left ankle series 01/22/2019 [place] [facility] Clinical Indication: pain - Pain in left ankle; Comparison: None FINDINGS: 2 views of the ankle show no rmal alignment without fractures or dislocations. The tibiotalar joint and talar dome are unremarkable. The subtalar joint is unremarkable. There is no ankle joint effusion. The mortise is normal. The distal tibia-fibular alignment is unremarkable. There is no soft tissue swelling or radiopaque foreign bodies. If there is further concern, recommend follow-up radiographs or MRI for complete assessment. IMPRESSION: 1. No fractures or dislocation of the left ankl e. SL: [id number] ED Abdomen/Pelvis IV Clinical Indication: Diarrhe a low blood pressure, abdominal pain. 01/22/2019 [facility] contrast only CT Comparison: None TECHNIQUE: Sequential trans- axial images were obtained with a multi-detector helical CT after administration of iodinated contrast. Coronal and sagittal reconstructions were obtained. 100 mL of Omnipaqu e contrast material was used for the exam. No oral contrast material was used for the exam. CT imaging performed at this location utilizes radiation dose optimization techniques which include one or more of the following: -Automated exposure control -Adjustment of the mA and/or kV according to pat ient size -Use of iterative reconstruction technique CT Radiation Dose DLP 1177 mGy-cm FINDINGS: CHEST BASE: No focal infiltrate. No effusion or pneumothorax. Heart size normal. No pericardial effusion. Peripherally calcified bilateral breast implants . LIVER: Size within normal limits. Normal contours. Enhancement pattern within normal limits. GALLBLADDER: Surgically removed. No abnormal findings in pos t-cholecystectomy bed PANCREAS: Normal enhancement pattern. No surrounding infl ammation. SPLEEN: Normal size. No obvious lesions. ADRENAL GLANDS: Normal contour bilaterally. No detected lesions. KIDNEYS/COLLECTING SYSTEMS: Right kidney: Normal size an d contour. No abnormal enhancement pattern. No calcified stones. Right ureter: No hydronephrosis or obstructing c alcified stone. Left kidney: Normal size and contour. No abnormal enhancement pattern. No calcified stones. Left ureter: No hydronephrosis or obstructing ca lcified stone. Bladder: Distends normally. No detected bladde r stones.. BOWEL: Limited assessment without oral contrast. Stomach: Unremarkable. Small bowel: Diffusely patulous, fluid-filled, w ith wall and fold hyperemia. Appendix: Visualized portions noninflamed. Large bowel: Cecum and ascen ding colon is patulous, fluid-filled, and demonstrates wall and fold hyperemia. Mild sigmoid diverticulosis without diverticulitis.. PELVIC ORGANS: Uterus appears normal in size and contour. Bilateral ovaries not well characterized. No large volume adnexal or retrouterine fluid. PERITONEUM/RETROPERITONEUM: No organized fluid collection. No free air. No pathologically enlarged l ymph nodes are seen in the abdomen, retroperitoneum, or pelvis. Aorta is normal in caliber without aneurysmal di latation. MUSCULOSKELETAL: No acute fracture or dislocation. Mild anterolisthesis of L4 o n L5, measuring approximately 6 mm, likely related to degenerative changes as moderate to severe bilateral facet arthropathy present at this level. No lytic or blastic lesion. Surrounding subcutaneous tissues within normal l imits. IMPRESSION: 1. Mid and distal small bow el and proximal colonic changes which likely reflect enterocolitis. 2. Mild sigmoid diverticulosis without diverticu litis. SL: [id number] Chest 1view DX Clinical Indication: Undifferentiated sepsis. [facility] Comparison: None FINDINGS: AP view of the chest submitted for interpretatio n. Lungs are clear. Heart size is normal. Central pulmonary vasculat ure appears normal. No effusion. No pneumothorax. No radiographically apparent acute osseous abnor mality. IMPRESSION: 1. No radiographically apparent acute cardiopulm onary process. SL: [id number] Consultation Notes No Data Provided for This Section Discharge Summaries No Data Provided for This Section History and Physicals No Data Provided for This Section Vital Signs Vital Sign Value Date Comments Source Temperature Oral (F) 98.6 F 01/28/[place] [facility] Systolic (mm Hg) 137 01/28/2019 [facility] t Diastolic (mm Hg) 84 01/28/[address] [facility] [address] Heart Rate 82 01/28/2019 [facility] Respitory Rate 18 01/28/2019 [facility] Systolic (mm Hg) 113 01/27/2019 [facility] t Diastolic (mm Hg) 72 01/27/[address] [facility] [address] Heart Rate 77 01/27/2019 [facility] Respitory Rate 18 01/27/2019 [facility] Temperature Oral (F) 98.5 F 01/27/[place] [facility] Systolic (mm Hg) 108 01/27/2019 [facility] t Diastolic (mm Hg) 71 01/27/[address] [facility] [address] Temperature Oral (F) 98.5 F 01/27/2019 [facility] Heart Rate 86 01/27/2019 [facility] Respitory Rate 18 01/27/2019 [facility] Height 157.48 cm 01/22/2019 [facility] BMI Calculated 30.24 01/22/2019 [facility] Weight 75 01/22/2019 [facility] Weight 75.994 01/22/2019 [facility] Encounters Location Location Encounter Encounter Reason Attending ADM [place] Source Details Type Number For Provider Date Date [facility] [id number] Ed 01/22 01/28 Yonis Sandovalni /2018 [facility] Hospital Procedures No Data Provided for This Section Assessment and Plan Assessment and Plan Date Source Extracted from:Title: Discharge Summary 01/28/2019 [facility] Author: Axel Arriaga MD Date: 01/26/19 Discharge Summary Attending Physician:Dr. Demarco Date of Admission:01/22/2019 Date of Discharge:01/26/2019 Consults: None Procedures: None Active Diagnosis During this Hospitalization: 1. Sepsis secondary to distal small bowel and proximal colo n enterocolitis 2. Hypotension-resolved 3. History of bipolar disorder 4. Depression 5. Abdominal pain Hospital Course: 40-year-old female past medical history of bipolar disorder, depression, and abdominal pain, presented to the ER from [facility] for evaluation of hypotension. She complains of generalized weakness, fat igue, abdominal pain, nausea, vomiting, reduced p.o. intake and diarrhea for 3 days. In the ER she was hypotensive with blood pressure of 82/49 and respiratory rate of [address] scan of the abdomen was revealed distal small bowel and proximal colon enterocolitis. She was started on IV fluids and IV antibiotics. Her symptoms clinically improved and her diet was advanced and is currently tolerating a regular diet. She does complain of some mild nausea when she eats. I had recommended her to continue with fluid diet for the next 3 days. Psych response team evaluated patient and noted that patient has been having some delusions but denie s any suicidal homicidal ideation and recommended to be transferred back to [facility]. Physical Exam: Vitals Tmp(F) Pulse BP RR SpO2 FIO2 01/26 08:31 98.0 82 123/80 -- 97 --- 01/26 04:05 98.5 76 119/75 19 --- --- 01/26 00:00 98.1 70 122/74 19 --- --- 01/25 20:00 98.5 73 122/79 18 --- --- 01/25 16:09 98.0 80 113/73 18 --- --- 24 Hr Tmax: 98.8F (37.11c) at 01/25 12:2 2 Vital Signs are the last 5 in the past 48 hours. General: NAD, awake, alert, answering questions appropriate ly Eyes: PERRLA, EOMI EENT: Clear oropharynx, moist mucus membranes Neck: Neck supple, no adenopathy Resp: CTAB, no labored breathing, no wheezes, rales or rhonc hi CV: Regular rate and rhythm without murmurs or gallop GI: Abdomen Soft, NT/ND, normal bowel sounds, no masses or o rganomegaly Musculoskeletal: Palpable pulses, no edema Neurologic: No focal deficits, normal strength and sensation Discharge Meds: Please refer to discharge medication reconciliation Discharge Condition: Stable Discharge Activity: As toelrated Discharge Diet: Liquid diet Discharge Disposition:Home Discharge Insturctions: Continue with full liquid diet for the next 3 days Take Cipro and Flagyl for 4 more days Nausea medicine. Time spent at Discharge:45 min Addendum by Axel Arriaga MD on 01/27/2019 15:26 Patient was to [facility] denied her. I spoke to physician at [facility] who has accepted patient. Extracted from:Title: Progress Note Author: Axel Arriaga MD Date: 01/25/19 48 year old female Admitted with hypotension, abdominal pain and sepsis. Was at [facility] for exacerbation of depression/bipolar disorder. Ct abd/pelvis showed mild enterocolitis . CXR and UA are clear.No leucocytosis. But lactic acid and pro-calcitonin elevated and patient was significantly hypotensive on admission. Patient is currently on IV antibiotics and IV fluids. Colitis improving Hypotension secondary to colitis improved with IV fluids Depression and bipolar disorder with re cent admission at [facility] with concern for psychosis Hypokalemia secondary to diarrhea treated Anemia of chronic disease Plan: Will DC IV fluids, will advance diet to regular diet We will continue with Cipro and Flagyl We will replacepotassiump.o. Discussed with psych response team. The ymentioned that patient is having some delusions but otherwiseno suicidal homicidal ideations. They haveclearthe patient to go back to [facility] rehab once medica lly cleared. Exclusionary paperwork is i n the chart to be signed bythe physician once medically cleared. Discussed in MDR's: Likely dischargeto morrowif tolerating regular diet and labs arewnl Extracted from:Title: History and Physical Author: Ed Demarco DO Date: 01/22/19 48 y/o female with history of bipolar di sorder currently admitted at [facility], depression and abdominal hernia brought in via EMS from [facility] for evaluation of hypotension. 1.Severe sepsis(R65.20) Hypotensive on arrival Tachycardic during my evaluation Tachypneic Lactic acid of 3.6 on initial labs procalcitonin of 6.90 sepsis MPP has been initiated blood cultures were drawn in the ED; will follow given 4L NS in the ED with improvement i n BP. Will start normal saline at 150cc/hr will closely monitor the BP will repeat lactic acid level given zosyn X 1 in the ED; will continue Ordered: CDM Intra-abdominal Infection Antibiotic, 01/22/19 4:51:00 C DT, 1 CDM Sepsis, 01/22/19 4:51:00 CDT, 1 Lab Instructions to Nurse, 01/22/19 4:5 1:00 CDT, Blood culture to be drawn before antibiotics are started but should not delay 1st dose of antibiotic administration. If unable to get blood cultures wit hin 30 minutes, notify MD and administer antibiotics. 2.Infectious gastroenteritis and colitis, unspecified(A09) will rule out C.diff will check stool O&P will obtain stool culture zosyn Ordered: Admit/Condition, 01/22/19 4:39:00 CDT, S tatus: Inpatient, IMU, Expected LOS: 2 Midnights, Ed Demarco DO, Admit MD Review/Approve Yes, Infectious gastroenteritis and colitis, unspecified | Hypotension, unspecified | Dehydration 3.Bipolar disorder(F31.9) will reconcile home medications when the list is updated 1:1 sitter Patient counseled regarding diagnosis, diagnostic results a nd treatment plan. All available documentation to include n otes from the emergency room, labs and imaging has been reviewed personally and included in the medical decision making process. SCD for DVT Inpatient Plan of Care No Data Provided for This Section Social History Social History Date Source Social History TypeResponse 01/22/2019 [facility] Smoking Status Light tobacco smoker; Exposure to Tobacc o Smoke None; Cigarette Smoking Last 365 Days No; Reg Smoking Cessation Counseling No entered on: 01/22/19 Family History No Data Provided for This Section Advance Directives No Data Provided for This Section Functional Status No Data Provided for This Section
--- OUTSIDE RECORDS SUMMARY | 2020-03-04 07:15 | XMS REPORT ---
:1970 Author Organization [facility] t Address [address] [place] [address] Care Team Providers Name Role Phone UNKNOWN Primary Care Provider Unavailable AFUWAPE Unavailable Unavailable Problems This patient has no known problems. Allergies, Adverse Reactions, Alerts This patient has no known allergies or adverse reactions. Medications This patient has no known medications. Encounters Start End Encounter Admission Attending Care Care Encounter Date/Time Date/Time Type Type Clinicians Facility Department ID 2019-01-22 Inpatient E [facility] [id number] 04:39:00 2018-02-21 2018-02-20 Inpatient [facility] [id number] 14:48:00 13:18:00 [facility] Results Test Description [...] = <0.01 g/dL 0.00-0.01 ETOHU) Comprehensive Metabolic [id number] 14:36:00 Test Item Value Reference Range Comments [...] bishop [employer],http: //nkdep.nih .gov Urinalysis [id number] 14:32:00 Test Item Value Reference Range Comments Color (test code = COLOR) Yellow Yellow,Straw,Pl yellow Clarity (test code = CLAR) Clear Clear Specific Gore (test code = SPGR) 1.024 1.001-1.035 pH [...] code = BACT) Few /HPF CBC with [id number] 14:21:00 Test Item Value Reference Range Comments [...] (test code = ALYMPH) 3.0 K/cumm 0.5-4.6 Crawford Abs (test code = AMONO) 0.5 K/cumm 0.0-1.2 Eos Abs (test code = AEOS) 0.19 K/cumm 0.00-0.74 Baso Abs (test code = ABASO) 0.1 K/cumm 0.00-0.21
--- OUTSIDE RECORDS SUMMARY | 2020-03-04 07:15 | XMS REPORT | Summary of Care ---
:1970 Author Organization [facility] Address [facility] [place], [place] [address]- Encounter HQ Anne_gladys(DARVIN) [id number] Date(s): 01/21/19 - 01/27/[address] [address]- Discharge Disposition: DC/TF To Psych Hosp Attending Physician: Ed Demarco DO Admitting Physician: Ed Demarco DO Vital Signs Most recent to oldest 1 2 3 [Reference Range]: Height 157.48 cm (01/22/19 9:35 AM) Current Weight 77.273 kg 73.6 kg 68.3 kg (01/27/19 5:00 AM) (01/24/19 8:00 PM) (01/23/19 8:00 P M) Temperature Oral [96.4-99.1 98.6 DegF 98.5 DegF 98.5 DegF DegF] (01/27/19 8:16 PM) (01/27/19 3:42 PM) (01/27/19 12:00 PM) Blood Pressure [90-140/60-90 137/84 mmHg 113/72 mmHg 108 /71 mmHg mmHg] (01/27/19 8:16 PM) (01/27/19 3:42 PM) (01/27/19 12:00 PM) Respiratory Rate [14-20 BRMIN] 18 BRMIN 18 BRMIN 1 8 BRMIN (01/27/19 8:16 PM) (01/27/19 3:42 PM) (01/27/19 12:00 PM) Peripheral Pulse Rate [60-100 82 bpm 77 bpm 86 bpm bpm] (01/27/19 8:16 PM) (01/27/19 3:42 PM) (01/27/19 12:00 PM) Weight 75 kg 75.994 kg (01/22/19 9:35 AM) (01/21/19 11:34 PM) Body Mass Index 30.24 m2 (01/22/19 9:35 AM) Problem List No data available for this section Allergies, Adverse Reactions, Alerts Substance Reaction Severity Status Phenergan Active Medications Cipro 500 mg, 1 tab, Route: PO, Drug form: TAB, [id number], Dosing Weight 75, kg, Start date: 01/23/19 10:00:00 CDT, Duration: 30 day, Stop date: 02/21/19 22:00:00 CDT, ABX Indication: Intra-abdominal Infection Notes: May interfere w/enteral feedings - Take 1 hr before or 2 hrs after antacids, dairy pdt & minerals. On empty stomach. Start Date: 01/23/19 Stop Date: 01/28/19 Status: DiscontinuedCipro 500 mg oral tablet 500 mg, PO, [id number], 0 Refill(s) Start Date: 01/23/19 Stop Date: 01/26/19 Status: Deletedciprofloxacin 500 mg oral tablet 500 mg = 1 tab, PO, [id number], X 4 day, # 8 tab, 0 Refill(s) Start Date: 01/26/19 Stop Date: 01/30/19 Status: OrderedclonazePAM 0.5 mg, 1 tab, Route: PO, Drug form: TAB, TID, Dosing Weight 75, kg, Start date: 01/23/19 13:00:00 CDT, Duration: 30 day, Stop date: 02/22/19 9:00:00 CDT Notes: (Same As: KlonoPIN) Start Date: 01/23/19 Stop Date: 01/28/19 Status: DiscontinuedclonazePAM 0.5 mg oral tablet 0.5 mg = 1 tab, PO, TID, # 90 tab, 0 Refill(s) Start Date: 01/22/19 Status: OrderedDextrose 50% Syringe 12.5 gm, 25 mL, Route: IVP, Drug Form: INJ, Dosing Weight 75.994, kg, PRN, PRN Blood Glucose Results, Start date: 01/22/19 4:47:00 CDT, Duration: 30 day, Stop date: 02/21/19 4:46:00 CDT Start Date: 01/22/19 Stop Date: 01/28/19 Status: DiscontinuedDextrose 50% Syringe 25 gm, 50 mL, Route: IVP, Drug Form: INJ, Dosing Weight 75.994, kg, PRN, PRN Blood Glucose Results, Start date: 01/22/19 4:47:00 CDT, Duration: 30 day, Stop date: 02/21/19 4:46:00 CDT Start Date: 01/22/19 Stop Date: 01/28/19 Status: DiscontinuedFlagyl 500 mg, 1 tab, Route: PO, Drug form: TAB, ABXQ8H, Dosing Weight 75, kg, Start date: 01/23/19 10:00:00 CDT, Duration: 30 day, Stop date: 02/22/19 2:00:00 CDT, ABX Indication: Intra-abdominal Infection Notes: (Same as: Flagyl) Take with food/ avoid alcohol Start Date: 01/23/19 Stop Date: 01/28/19 Status: DiscontinuedFlagyl 500 mg oral tablet 500 mg, PO, ABXQ8H, 0 Refill(s) Start Date: 01/23/19 Stop Date: 01/26/19 Status: Deletedglucagon 1 mg, Route: IM, Drug form: PDR/INJ, PRN, Dosing Weight 75.994, kg, PRN Blood Glucose Results, Startdate: 01/22/19 4:47:00 CDT, Duration: 30 day, Stop date: 02/21/19 4:46:00 CDT Start Date: 01/22/19 Stop Date: 01/28/19 Status: Discontinuedlithium 450 mg, 1 tab, Route: PO, Drug form: ERTAB, Bedtime, Dosing Weight 75, kg, Start date: 01/23/19 21:00:00 CDT, Duration: 30 day, Stop date: 02/21/19 21:00:00 CDT Notes: Do not crush or chew. (Same as: Eskalith-CR) Start Date: 01/23/19 Stop Date: 01/28/19 Status: Discontinuedlithium 450 mg oral tablet, extended release 450 mg = 1 tab, PO, Bedtime, # 60 tab, 0 Refill(s) Start Date: 01/22/19 Status: OrderedmetroNIDAZOLE 500 mg oral tablet 500 mg = 1 tab, PO, ABXQ8H, X 4 day, # 12 tab, 0 Refill(s) Start Date: 01/26/19 Stop Date: 01/30/19 Status: Orderednormal saline 0.9% IV 1,000 mL 1,000 mL, Rate: 150 ml/hr, Infuse over: 6.7 hr, Route: IV, Dosing Weight 75.994 kg, Total Volume: 1,000, Start date: 01/22/19 4:48:00 CDT, Duration: 30 day, Stop date: 02/21/19 4:47:00 CDT Start Date: 01/22/19 Stop Date: 01/23/19 Status: Discontinuednormal saline 0.9% IV 1,000 mL 1,000 mL, Rate: 100 ml/hr, Infuse over: 10 hr, Route: IV, Dosing Weight 75 kg, Total Volume: 1,000, Start date: 01/23/19 14:18:00 CDT, Duration: 30 day, Stop date: 02/22/19 14:17:00 CDT, 1.84, m2 Start Date: 01/23/19 Stop Date: 01/25/19 Status: DiscontinuedNS (Bolus) IV 1,000 mL, 1,000 ml/hr, Infuse Over: 1 hr, Route: IV, 1,000, Drug form: INJ, ONCE, Priority: STAT, Dosing Weight 75.994 kg, Start date: 01/22/19 0:44:00 CDT, Stop date: 01/22/19 0:44:00 CDT Start Date: 01/22/19 Stop Date: 01/22/19 Status: CompletedNS (Bolus) IV 1,000 mL, 1,000 ml/hr, Infuse Over: 1 hr, Route: IV, 1,000, Drug form: INJ, ONCE, Priority: STAT, Dosing Weight 75.994 kg, Start date: 01/21/19 23:51:00 CDT, Stop date: 01/21/19 23:51:00 CDT Start Date: 01/21/19 Stop Date: 01/22/19 Status: CompletedNS (Bolus) IV 1,000 mL, 1,000 ml/hr, Infuse Over: 1 hr, Route: IV, 1,000, Drug form: INJ, ONCE, Priority: STAT, Dosing Weight 75.994 kg, Start date: 01/21/19 23:51:00 CDT, Stop date: 01/21/19 23:51:00 CDT Start Date: 01/21/19 Stop Date: 01/22/19 Status: CompletedNS (Bolus) IV 1,000 mL, 1,000 ml/hr, Infuse Over: 1 hr, Route: IV, 1,000, Drug form: INJ, ONCE, Priority: STAT, Dosing Weight 75.994 kg, Start date: 01/22/19 3:52:00 CDT, Stop date: 01/22/19 3:52:00 CDT Start Date: 01/22/19 Stop Date: 01/22/19 Status: Completedondansetron 4 mg, 2 mL, Route: IVP, Drug form: INJ, Q8H, Dosing Weight 75.994, kg, PRN Nausea & Vomiting, Start date: 01/22/19 4:47:00 CDT, Duration: 30 day, Stop date: 02/21/19 4:46:00 CDT Notes: (Same as: Zofran) MEDICATION WASTE Product Size: 4 mgProduct Wasted: ___ mg Start Date: 01/22/19 Stop Date: 01/28/19 Status: DiscontinuedPepcid 20 mg, 1 tab, Route: PO, Drug form: TAB, BID, Dosing Weight 75, kg, Start date: 01/22/19 17:00:00 CDT, Duration: 30 day, Stop date: 02/21/19 9:00:00 CDT Notes: (Same as: Pepcid) Start Date: 01/22/19 Stop Date: 01/28/19 Status: Discontinuedpotassium chloride 40 mEq, 2 tab, Route: PO, Drug form: ERTAB, ONCE, Dosing Weight 75, kg, Start date: 01/23/19 9:17:00CDT, Stop date: 01/23/19 9:17:00 CDT Notes: (Same as: K-Dur 20)"Do Not Crush" Give with food and full glass of waterFor patients unable to swallow tablet, dissolve in one half glass of water. Allow about 2 minutes for the tablets to disintegrate. Stir before giving to prepare slurry and administer.Please exclude Patients with feedingtube less than 14 [place] (Dobhoff, J-tube etc) and pediatric and patients. Start Date: 01/23/19 Stop Date: 01/23/19 Status: Completedpotassium chloride 20 mEq, 1 tab, Route: PO, Drug form: ERTAB, ONCE, Dosing Weight 75, kg, Priority: STAT, Start date: 01/25/19 8:26:00 CDT, Stop date: 01/25/19 8:26:00 CDT Notes: (Same as: K-Dur 20)"Do Not Crush" Give with food and full glass of waterFor patients unable to swallow tablet, dissolve in one half glass of water. Allow about 2 minutes for the tablets to disintegrate. Stir before giving to prepare slurry and administer.Please exclude Patients with feedingtube less than 14 [place] (Dobhoff, J-tube etc) and pediatric and patients. Start Date: 01/25/19 Stop Date: 01/25/19 Status: Completedpotassium chloride 20 mEq oral tablet, extended release 40 mEq, PO, ONCE, 0 Refill(s) Start Date: 01/23/19 Status: OrderedRisperdal 0.5 mg, 1 tab, Route: PO, Drug form: TAB, BID, Dosing Weight 75, kg, Start date: 01/23/19 17:00:00 CDT, Duration: 30 day, Stop date: 02/22/19 9:00:00 CDT Notes: (Same as: Risperdal) Start Date: 01/23/19 Stop Date: 01/28/19 Status: DiscontinuedRisperdal 0.5 mg oral tablet 0.5 mg = 1 tab, PO, BID, 0 Refill(s) Start Date: 01/22/19 Status: OrderedSaline Flush 0.9% 10 mL, Route: IVP, Drug Form: INJ, Dosing Weight 75.994, kg, PRN, PRN Line Flush, Start date: 01/21/19 23:52:00 CDT, Duration: 30 day, Stop date: 02/20/19 23:51:00 CDT Notes: Same as: BD Posiflush Sterile Start Date: 01/21/19 Stop Date: 01/28/19 Status: DiscontinuedStrattera 0.5 mg/kg, PO, QAM, 0 Refill(s) Start Date: 01/22/19 Status: OrderedStrattera 0.5 mg/kg, Route: PO, QAM, Dosing Weight 75, kg, Start date: 01/24/19 9:00:00 CDT, Duration: 30 day,Stop date: 02/22/19 9:00:00 CDT Start Date: 01/24/19 Stop Date: 01/28/19 Status: DiscontinuedStrattera 1 mg, Route: PO, QPM, Dosing Weight 75, kg, Start date: 01/23/19 17:00:00 CDT, Duration: 30 day, Stop date: 02/21/19 17:00:00 CDT Start Date: 01/23/19 Stop Date: 01/28/19 Status: DiscontinuedStrattera 1 mg, PO, QPM, 0 Refill(s) Start Date: 01/22/19 Status: Orderedtramadol 50 mg, 1 tab, Route: PO, Drug form: TAB, Q6H, Dosing Weight 75, kg, PRN Pain Score 1-3, Start date: 01/22/19 10:03:00 CDT, Duration: 30 day, Stop date: 02/21/19 10:02:00 CDT Notes: Not to exceed 400mg/day. (Same As: Ultram) Start Date: 01/22/19 Stop Date: 01/28/19 Status: Discontinuedtramadol 50 mg oral tablet 50 mg = 1 tab, PO, Q6H, PRN Pain Score 1-3, X 5 day, # 20 tab, 0 Refill(s) Start Date: 01/26/19 Stop Date: 01/31/19 Status: Orderedtramadol 50 mg oral tablet 50 mg = 1 tab, PO, Q6H, PRN Pain Score 1-3, 0 Refill(s) Start Date: 01/23/19 Stop Date: 01/26/19 Status: DeletedVisipaque 320 mg/mL injectable solution 85 mL, Route: IVP, Drug Form: SOLN, Dosing Weight 75.994, kg, ONCALL, GFR </= 45 mL/min, STAT, Start date: 01/22/19 1:42:00 CDT, Duration: 1 doses or times Notes: (Same as: Melba).WASTE: F/P - Black; E - Municipal Trash Bin Start Date: 01/22/19 Stop Date: 01/22/19 Status: CompletedZofran 4 mg, 2 mL, Route: IVP, Drug form: INJ, ONCE, Dosing Weight 75.994, kg, Priority: STAT, Start date: 01/21/19 23:52:00 CDT, Stop date: 01/21/19 23:52:00 CDT Notes: (Same as: Zofran) MEDICATION WASTE Product Size: 4 mgProduct Wasted: ___ mg Start Date: 01/21/19 Stop Date: 01/22/19 Status: CompletedZofran 4 mg, 2 mL, Route: IVP, Drug form: INJ, ONCE, Dosing Weight 75.994, kg, Priority: STAT, Start date: 01/22/19 3:56:00 CDT, Stop date: 01/22/19 3:56:00 CDT Notes: (Same as: Zofran) MEDICATION WASTE Product Size: 4 mgProduct Wasted: ___ mg Start Date: 01/22/19 Stop Date: 01/22/19 Status: CompletedZofran 4 mg oral tablet 4 mg = 1 tab, PO, Q6H, PRN Nausea/Vomiting, # 20 tab, 0 Refill(s) Start Date: 01/26/19 Stop Date: 01/31/19 Status: OrderedZosyn + Sodium Chloride 0.9% IV 100 mL 3.375 gm, Route: IV, Q8H, Dosing Weight 75.994, kg, Start date: 01/22/19 11:00:00 CDT, Duration: 30 day, Stop date: 02/21/19 3:00:00 CDT, ABX Indication: Intra-abdominal Infection Notes: (Same as: Zosyn)Dosing based on Piperacillin component MEDICATION WASTE Product Size: 3375 mgProduct Wasted: ___ mg Start Date: 01/22/19 Stop Date: 01/23/19 Status: DiscontinuedZosyn + Sodium Chloride 0.9% IV 100 mL 3.375 gm, Route: IVPB, ONCE, Dosing Weight 75.994, kg, Priority: STAT, Start date: 01/22/19 1:10:00 CDT, Stop date: 01/22/19 1:10:00 CDT, ABX Indication: Intra-abdominal Infection Notes: (Same as: Zosyn)Dosing based on Piperacillin component MEDICATION WASTE Product Size: 3375 mgProduct Wasted: ___ mg Start Date: 01/22/19 Stop Date: 01/22/19 Status: Completed Results BLOOD BANK RESULTS Most recent to oldest [Reference Range]: 1 2 3 ABO/Rh A POS *Unknown* (01/22/19 12:01 AM) Antibody Scrn Negative (01/22/19 12:01 AM) ELECTROLYTES Most recent to oldest 1 2 3 [Reference Range]: Sodium Lvl [135-145 mEq/L] 139 mEq/L 143 mEq/L 143 m Eq/L (01/26/19 3:24 AM) (01/25/19 4:14 AM) (01/23/19 5:50 A M) Potassium Lvl [3.5-5.1 mEq/L] 3.6 mEq/L 3.3 mEq/L 3. 1 mEq/L (01/26/19 3:24 AM) *LOW* *LOW* (01/25/19 4:14 AM) (01/23/19 5:50 AM ) Chloride Lvl [95-109 mEq/L] 107 mEq/L 109 mEq/L 113 mEq/L (01/26/19 3:24 AM) (01/25/19 4:14 AM) *HI* (01/23/19 5:50 AM) CO2 [24-32 mEq/L] 27 mEq/L 24 mEq/L 23 mEq/L (01/26/19 3:24 AM) (01/25/19 4:14 AM) *LOW* (01/23/19 5:50 AM) AGAP [10.0-20.0 mEq/L] 8.6 mEq/L 13.3 mEq/L 10.1 mEq/ L *LOW* (01/25/19 4:14 AM) (01/23/19 5:50 AM ) (01/26/19 3:24 AM) CHEM PANEL Most recent to oldest 1 2 3 [Reference Range]: Creatinine Lvl [0.50-1.40 0.70 mg/dL 0.60 mg/dL 0.50 m g/dL mg/dL] (01/26/19 3:24 AM) (01/25/19 4:14 AM) (01/23/19 5:50 A M) eGFR 103 mL/min/1.73m2 1 108 mL/min/1.73m2 2 115 mL/m in/1.73m2 3 *NA* *NA* *NA* (01/26/19 3:24 AM) (01/25/19 4:14 AM) (01/23/19 5:50 A M) BUN [7-22 mg/dL] 6 mg/dL 2 mg/dL 5 mg/dL *LOW* *LOW* *LOW* (01/26/19 3:24 AM) (01/25/19 4:14 AM) (01/23/19 5:50 A M) B/C Ratio [6-25] 20 (01/22/19 12:01 AM) Glucose Lvl [70-99 mg/dL] 86 mg/dL 81 mg/dL 83 mg/ dL (01/26/19 3:24 AM) (01/25/19 4:14 AM) (01/23/19 5:50 A M) Total Protein [6.4-8.4 g/dL] 8.1 g/dL (01/22/19 12:01 AM) Albumin Lvl [3.5-5.0 g/dL] 4.0 g/dL (01/22/19 12:01 AM) Globulin [2.7-4.2 g/dL] 4.1 g/dL (01/22/19 12:01 AM) A/G Ratio [0.7-1.6] 1.0 (01/22/19 12:01 AM) Calcium Lvl [8.5-10.5 mg/dL] 8.4 mg/dL 8.5 mg/dL 7.8 mg/dL *LOW* (01/25/19 4:14 AM) *LOW* (01/26/19 3:24 AM) (01/23/19 5:50 AM ) Magnesium Lvl [1.8-2.4 mg/dL] 2.0 mg/dL (01/23/19 5:50 AM) ALT [0-65 unit/L] 25 unit/L (01/22/19 12:01 AM) AST [0-37 unit/L] 17 unit/L (01/22/19 12:01 AM) Alk Phos [39-136 unit/L] 100 unit/L (01/22/19 12:01 AM) Bili Total [0.2-1.3 mg/dL] 0.6 mg/dL (01/22/19 12:01 AM) Lactic Acid Lvl [0.5-2.2 0.9 mMol/L 2.4 mMol/L 3.0 mMo l/L mMol/L] (01/23/19 7:32 AM) *HI* *HI* (01/22/19 6:32 AM) (01/22/19 4:04 AM) Procalcitonin Lvl [0.00-0.10 2.76 ng/mL 4 6.90 ng/mL 5 ng/mL] *CRIT* *CRIT* (01/23/19 10:42 AM) (01/22/19 12:01 AM) 1Result Comment: The eGFR is calculated using the CKD-EPI formula. In most young, healthy individualsthe eGFR will be >90 mL/min/1.73m2. The eGFR declines with age. An eGFR of 60-89 may be normal insome populations, particularly the elderly, for whom the CKD-EPI formula has not been extensively validated. Use of the eGFR is not recommended in the following populations: Individuals with unstable creatinine concentrations, including patients and those with serious co-morbid conditions. Patients with extremes in muscle mass or diet. The data above are obtained from the National Kidney Disease Education Program (NKDEP) which additionally recommends that when the eGFR is used in patients with extremes of body mass index for purposesof drug dosing, the eGFR should be multiplied by the estimated BMI.2Result Comment: The eGFR is calculated using the CKD-EPI formula. In most young, healthy individualsthe eGFR will be >90 mL/min/1.73m2. The eGFR declines with age. An eGFR of 60-89 may be normal insome populations, particularly the elderly, for whom the CKD-EPI formula has not been extensively validated. Use of the eGFR is not recommended in the following populations: Individuals with unstable creatinine concentrations, including patients and those with serious co-morbid conditions. Patients with extremes in muscle mass or diet. The data above are obtained from the National Kidney Disease Education Program (NKDEP) which additionally recommends that when the eGFR is used in patients with extremes of body mass index for purposesof drug dosing, the eGFR should be multiplied by the estimated BMI.3Result Comment: The eGFR is calculated using the CKD-EPI formula. In most young, healthy individualsthe eGFR will be >90 mL/min/1.73m2. The eGFR declines with age. An eGFR of 60-89 may be normal insome populations, particularly the elderly, for whom the CKD-EPI formula has not been extensively validated. Use of the eGFR is not recommended in the following populations: Individuals with unstable creatinine concentrations, including patients and those with serious co-morbid conditions. Patients with extremes in muscle mass or diet. The data above are obtained from the National Kidney Disease Education Program (NKDEP) which additionally recommends that when the eGFR is used in patients with extremes of body mass index for purposesof drug dosing, the eGFR should be multiplied by the estimated BMI.4Result Comment: Critical Result(s) called to Jay Jay Levin at 01/23/2019 12:56 by cz. Read back OK.5Result Comment: Critical Result(s) called to Eliana Vega at 01/22/2019 00:50 by VV. Read back OK.CARDIAC ENZYMES Most recent to oldest [Reference Range]: 1 2 3 Total CK [12-191 unit/L] 49 unit/L (01/22/19 12:01 AM) Troponin-I [0.00-0.40 ng/mL] <0.02 ng/mL (01/22/19 12:01 AM) METAL Most recent to oldest [Reference Range]: 1 2 3 [place] Lvl [0.50-1.50 mEq/L] 0.90 mEq/L (01/22/19 12:16 AM) ENDOCRINOLOGY Most recent to oldest [Reference Range]: 1 2 3 S Preg [Negative] Negative *NA* (01/22/19 12:01 AM) URINE AND STOOL Most recent to oldest [Reference Range]: 1 2 3 UA Turbidity [Clear] Clear (01/22/19 2:14 AM) UA Color [Yellow] Light Yellow *NA* (01/22/19 2:14 AM) UA pH [5.0-8.0] 6.0 (01/22/19 2:14 AM) UA Spec Grav [<=1.030] 1.014 (01/22/19 2:14 AM) UA Glucose [Negative] Negative *NA* (01/22/19 2:14 AM) UA Blood [Negative] Negative (01/22/19 2:14 AM) UA Ketones [Negative] Negative *NA* (01/22/19 2:14 AM) UA Protein [Negative] Negative (01/22/19 2:14 AM) UA Urobilinogen [0.1-1.0 mg/dL] <=1.0 mg/dL *NA* (01/22/19 2:14 AM) UA Bili [Negative] Negative *NA* (01/22/19 2:14 AM) UA Leuk Est [Negative] Negative (01/22/19 2:14 AM) UA Nitrite [Negative] Negative (01/22/19 2:14 AM) UA WBC [0-5 /HPF] 2 /HPF (01/22/19 2:14 AM) UA RBC [0-2 /HPF] <1 /HPF (01/22/19 2:14 AM) UA Sq Epi [Few /LPF] Occasional /LPF *NA* (01/22/19 2:14 AM) UA Hyal Cast [0-2 /LPF] 25 /LPF *HI* (01/22/19 2:14 AM) UA Mucus [None Seen /LPF] Few /LPF *NA* (01/22/19 2:14 AM) HEMATOLOGY Most recent to oldest 1 2 3 [Reference Range]: WBC [3.7-10.4 K/CMM] 6.3 K/CMM 8.6 K/CMM 9.9 K/CMM (01/26/19 3:24 AM) (01/23/19 5:50 AM) (01/22/19 12:01 AM) RBC [4.20-5.40 M/CMM] 3.78 M/CMM 3.27 M/CMM 4.85 M/CMM *LOW* *LOW* (01/22/19 12:01 A M) (01/26/19 3:24 AM) (01/23/19 5:50 AM) Hgb [12.0-16.0 g/dL] 11.6 g/dL 10.0 g/dL 1 14.0 g/dL *LOW* *LOW* (01/22/19 12:01 A M) (01/26/19 3:24 AM) (01/23/19 5:50 AM) Hct [36.0-48.0 %] 34.2 % 28.7 % 42.7 % *LOW* *LOW* (01/22/19 12:01 A M) (01/26/19 3:24 AM) (01/23/19 5:50 AM) MCV [80.0-98.0 fL] 90.3 fL 87.8 fL 88.2 fL (01/26/19 3:24 AM) (01/23/19 5:50 AM) (01/22/19 12:01 AM) MCH [27.0-31.0 pg] 30.7 pg 30.4 pg 29.0 pg (01/26/19 3:24 AM) (01/23/19 5:50 AM) (01/22/19 12:01 AM) MCHC [32.0-36.0 g/dL] 34.0 g/dL 34.6 g/dL 32.8 g/dL (01/26/19 3:24 AM) (01/23/19 5:50 AM) (01/22/19 12:01 AM) RDW [11.5-14.5 %] 13.3 % 13.1 % 13.6 % (01/26/19 3:24 AM) (01/23/19 5:50 AM) (01/22/19 12:01 AM) MPV [7.4-10.4 fL] 7.5 fL 7.7 fL 7.3 fL (01/26/19 3:24 AM) (01/23/19 5:50 AM) *LOW* (01/22/19 12:01 A M) Platelet [133-450 K/CMM] 412 K/CMM 327 K/CMM 443 K/C MM (01/26/19 3:24 AM) (01/23/19 5:50 AM) (01/22/19 12:01 AM) Segs [45.0-75.0 %] 63.6 % 86.5 % (01/23/19 5:50 AM) *HI* (01/22/19 12:01 AM) Lymphocytes [20.0-40.0 %] 25.1 % 5.7 % (01/23/19 5:50 AM) *LOW* (01/22/19 12:01 AM) Monocytes [2.0-12.0 %] 8.9 % 6.9 % (01/23/19 5:50 AM) (01/22/19 12:01 AM) Eosinophils [0.0-4.0 %] 2.3 % 0.9 % (01/23/19 5:50 AM) (01/22/19 12:01 AM) Basophils [0.0-1.0 %] 0.1 % 0.0 % (01/23/19 5:50 AM) (01/22/19 12:01 AM) Neutrophils # [1.5-8.1 5.5 K/CMM 8.6 K/CMM K/CMM] (01/23/19 5:50 AM) *HI* (01/22/19 12:01 AM) Lymphocytes # [1.0-5.5 2.2 K/CMM 0.6 K/CMM K/CMM] (01/23/19 5:50 AM) *LOW* (01/22/19 12:01 AM) Monocytes # [0.0-0.8 K/CMM] 0.8 K/CMM 0.7 K/CMM (01/23/19 5:50 AM) (01/22/19 12:01 AM) Eosinophils # [0.0-0.5 0.2 K/CMM 0.1 K/CMM K/CMM] (01/23/19 5:50 AM) (01/22/19 12:01 AM) Basophils # [0.0-0.2 K/CMM] 0.0 K/CMM (01/22/19 12:01 AM) RBC Morph Normal (01/23/19 5:50 AM) Plt Morph Normal (01/23/19 5:50 AM) PT [12.0-14.7 seconds] 12.6 seconds (01/22/19 12:01 AM) INR [0.85-1.17] 0.96 (01/22/19 12:01 AM) PTT [22.9-35.8 seconds] 25.9 seconds (01/22/19 12:01 AM) 1Result Comment: Notified Anandey 01/23/2019 07:32 by smt.MOLECULAR DIAGNOSTIC Most recent to oldest [Reference Range]: 1 2 3 C difficile DNA [Negative] Negative (01/23/19 11:22 AM) Microbiology Reports TEST:Culture: Stool STATUS:Auth (Verified) BODY SITE: SOURCE:Stool COLLECTED DATE/TIME:01/22/19 5:09 PMFINAL REPORTNormal Enteric Pam Isolated No Salmonella Or Shigella Isolated No Campylobacter Isolated Immunizations No data available for this section Procedures No data available for this section Social History Social History Type Response Smoking Status Light tobacco smoker; Exposu re to Tobacco Smoke None; Cigarette Smoking Last 365 Days No; Reg Smoking Cessation Counseling No entered on: 01/22/19 Assessment and Plan Extracted from: Title: Discharge Summary Author: Axel Arriaga MD [place] e: 01/26/19 Discharge Summary Attending Physician:Dr. Demarco Date of Admission:01/22/2019 Date of Discharge:01/26/2019 Consults: None Procedures: None Active Diagnosis During this Hospitaliza tion: 1. Sepsis secondary to distal small bow el and proximal colon enterocolitis 2. Hypotension-resolved 3. History of bipolar disorder 4. Depression 5. Abdominal pain Hospital Course: 40-year-old female past medical history of bipolar disorder, depression, and abdominal pain, presented to the ER from [facility] [place], [place] for evaluation of hypotension. She complains of [...] [facility] Physical Exam: Vitals Tmp(F) Pulse BP RR [...] 48 hours. General: NAD, awake, alert, answering q uestions appropriately Eyes: PERRLA, EOMI EENT: Clear oropharynx, moist mucus memb ranes Neck: Neck supple, no adenopathy Resp: CTAB, no labored breathing, no whe ezes, rales or rhonchi CV: Regular rate and rhythm without murm urs or gallop GI: Abdomen Soft, NT/ND, normal bowel so unds, no masses or organomegaly Musculoskeletal: Palpable pulses, no alex ma Neurologic: No focal deficits, normal st rength and sensation Discharge Meds: Please refer to discharge medication rec onciliation Discharge Condition: Stable Discharge Activity: As toelrated Discharge Diet: Liquid diet Discharge Disposition:Home Discharge Insturctions: Continue with full liquid diet for the n ext 3 days Take Cipro and Flagyl for 4 more days Nausea medicine. Time spent at Discharge:45 min Addendum by Axel Arriaga MD on Patient was to [facility] 01/27/2019 15:26 denied her. I spoke to farrah syed at [facility] w [facility]acha has accepted patient. Extracted from: Title: Progress Note Author: Axel Arriaga MD Date: 48 year old female Admitted with hypotension, abdominal pain and sepsis. Was at [facility] for exacerbation of depression/bipolar disorder. Ct abd/pelvis showed mild enterocolitis . CXR and UA are clear.No leucocytosis. But lactic acid and pro-calcitonin elevated and patient was significantly hypotensive on admission. Patient is currently on IV antibiotics and IV fluids. Colitis improving Hypotension secondary to colitis improv ed with IV fluids Depression and bipolar disorder with re cent admission at [facility] [place] [facility] with concern for psychosis Hypokalemia secondary to diarrhea treat ed Anemia of chronic disease Plan: Will DC IV fluids, will advance diet to regular diet We will continue with Cipro and Flagyl We will replacepotassiump.o. Discussed with psych response team. T heymentioned that patient is having some delusions but otherwiseno suicidal homicidal ideations. They haveclearthe patient to go back to [facility] [place], [place] rehab once medically cleared. Exclusionary paperwork is in the chart to be signed bythe physician once medically cleared. Discussed in MDR's: Likely discharge tomorrowif tolerating regular diet and labs arewnl Extracted from: Title: History and Physical Author: Ed Demarco DO Date: 01/22/19 48 y/o female with history of bipolar di sorder currently admitted at [facility] [place], [place], depression and abdominal hernia brought in via EMS from [facility] [place], [place] for evaluation of hypotension. 1.Severe sepsis(R65.20) Hypotensive on arrival Tachycardic during my evaluation Tachypneic Lactic acid of 3.6 on initial labs procalcitonin of 6.90 sepsis MPP has been initiated blood cultures were drawn in the ED; hank l follow given 4L NS in the ED with improvement i n BP. Will start normal saline at 150cc/hr will closely monitor the BP will repeat lactic acid level given zosyn X 1 in the ED; will continue Ordered: CDM Intra-abdominal Infection Antibiotic , 01/22/19 4:51:00 CDT, 1 CDM Sepsis, 01/22/19 4:51:00 CDT, 1 Lab Instructions to Nurse, 01/22/19 4:5 1:00 CDT, Blood culture to be drawn before antibiotics are started but should not delay 1st dose of antibiotic administration. If unable to get blood cultures wit hin 30 minutes, notify MD and administer antibiotics. 2.Infectious gastroenteritis and coli tis, unspecified(A09) will rule out C.diff will check stool O&P will obtain stool culture zosyn Ordered: Admit/Condition, 03/31/19 4:39:00 CDT, S tatus: Inpatient, IMU, Expected LOS: 2 Midnights, Ed Demarco DO, Admit MD Review/Approve Yes, Infectious gastroenteritis and colitis, unspecified | Hypotension, unspecified | Dehydration 3.Bipolar disorder(F31.9) will reconcile home medications when the list is updated 1:1 sitter Patient counseled regarding diagnosis, diagnostic results and treatment plan. All available documentation to include n otes from the emergency room, labs and imaging has been reviewed personally and included in the medical decision making process. SCD for DVT Inpatient
[2020-03-04] MEDS ORDERED: NA CHLORIDE 0.9% 500 ML ONE (07:33)
[2020-03-04] MEDS ORDERED: LORazepam 2 MG/ML VIAL ONE (07:56)
--- NOTE | 2020-03-04 08:21 | ER ---
Nurse's Notes [facility] Name: Tiffany Quinn Age: 49 yrs Sex: Female : 1970 Arrival Date: 03/04/2020 Time: 07:14 Bed 2 Private MD: Diagnosis: Unspecified psychosis not due to a substance or known physiological condition;Schizophrenia Presentation: 03/04 07:14 Chief complaint: EMS states: started Zyprexa on 02/19/20 and feels like she needs it sv changed because she's shaking and upset. Denies SI/HI. BP 140/88 HR-84 98% RA. Medication was prescribed by [facility]. Coronavirus screen: Proceed with normal triage. Patient denies a cough. Patient denies shortness of breath or difficulty breathing. Patient denies measured and/or subjective temperature greater than 100.4F prior to today's visit. Patient denies travel on a cruise ship or to a country the [facility] currently lists as an affected area. Patient denies contact with known and/or suspected case of COVID-19. Ebola Screen: No symptoms or risks identified at this time. Initial Sepsis Screen: Does the patient meet any 2 criteria? No. Patient's initial sepsis screen is negative. Does the patient have a suspected source of infection? No. Patient's initial sepsis screen is negative. Risk Assessment: Do you want to hurt yourself or someone else? Patient reports no desire to harm self or others. Onset of symptoms was March 04, 2020. 07:14 Method Of Arrival: EMS: [facility] sv 07:14 Acuity: MANUEL 4 sv Triage Assessment: 07:14 General: Appears in no apparent distress. comfortable, Behavior is calm, cooperative, sv appropriate for age, flat. Pain: Denies pain. Neuro: Level of Consciousness is awake, alert, obeys commands, Oriented to person, place, time, situation, Gait is steady. Respiratory: Respiratory effort is even, unlabored. Derm: Skin is pink, warm \T\ dry. Historical: - Allergies: 07:18 Stadol; sv 07:18 Toradol; sv - Home Meds: 07:18 Fioricet Oral [Active]; Phenergan Oral [Active]; Zyprexa 5 mg Oral tab nightly [Active];sv - PMHx: 07:18 ADD/ADHD; Hernia; Migraines; PSYCH PROBLEMS; Schizophrenia; unsure if she is; Seizures; sv Bipolar disorder; - PSHx: 07:18 Hernia repair; Cholecystectomy; breast implants; sv - Immunization history:: Adult Immunizations up to date. - Social history:: Smoking status: . - Family history:: not pertinent. Screenin:23 Abuse screen: Denies threats or abuse. Denies injuries from another. Nutritional sv screening: No deficits noted. Tuberculosis screening: No symptoms or risk factors identified. Fall Risk None identified. Assessment: 08:51 Reassessment: Patient appears in no apparent distress at this time. No changes from sv previously documented assessment. Patient and/or family updated on plan of care and expected duration. Pain level reassessed. Patient is alert, oriented x 3, equal unlabored respirations, skin warm/dry/pink. 10:00 Reassessment: Patient appears in no apparent distress at this time. No changes from sv previously documented assessment. Patient and/or family updated on plan of care and expected duration. Pain level reassessed. Patient is alert, oriented x 3, equal unlabored respirations, skin warm/dry/pink. 11:05 Reassessment: Patient appears in no apparent distress at this time. No changes from sv previously documented assessment. Patient and/or family updated on plan of care and expected duration. Pain level reassessed. Patient is alert, oriented x 3, equal unlabored respirations, skin warm/dry/pink. 12:17 Reassessment: Patient appears in no apparent distress at this time. No changes from sv previously documented assessment. Patient and/or family updated on plan of care and expected duration. Pain level reassessed. Patient is alert, oriented x 3, equal unlabored respirations, skin warm/dry/pink. 12:42 Reassessment: Nurse to nurse given to Daniella BENITO at [facility]. sv 13:00 Reassessment: Patient appears in no apparent distress at this time. No changes from sv previously documented assessment. Patient and/or family updated on plan of care and expected duration. Pain level reassessed. Patient is alert, oriented x 3, equal unlabored respirations, skin warm/dry/pink. 14:18 Reassessment: REPORT TO EMS. PT HECTOR. bp Vital Signs: 07:14 BP 122 / 68; Pulse 80; Resp 16; Temp 98.6; Pulse Ox 100% ; Weight 72.57 kg; Height 5 sv ft. 2 in. (157.48 cm); Pain 0/10; 12:41 BP 116 / 78; Pulse 82; Resp 17; Temp 98; Pulse Ox 99% ; sv 14:00 BP 123 / 75; Pulse 77; Resp 17; Temp 98; Pulse Ox 99% ; bp 07:14 Body Mass Index 29.26 (72.57 kg, 157.48 cm) sv ED Course: 07:14 Patient arrived in ED. sv 07:14 Julissa Marte, RN is Primary Nurse. sv 07:15 Bill Palm MD is Attending Physician. jo 07:16 Triage completed. sv 07:18 Arm band placed on. sv 07:23 ED physician to see patient. sv 07:23 Patient has correct armband on for positive identification. Bed in low position. Call sv light in reach. Pulse ox on. NIBP on. 07:35 Inserted saline lock: 22 gauge in left hand, using aseptic technique. Blood collected. sv Flushed left hand with 5 ml normal saline. 08:40 EKG done, by ED staff, reviewed by Bill Palm MD. dh3 08:50 Lab(s) recollected, by lab aide, sent to lab. sv 09:06 pt/ptt , \T\ angie drawn by me and sent to lab by venipuncture 25G to the right wrist. dh3 14:19 No provider procedures requiring assistance completed. IV discontinued, intact, bp bleeding controlled, No redness/swelling at site. Pressure dressing applied. Administered Medications: 07:47 Drug: NS 0.9% 500 ml Route: IV; Rate: bolus; Site: left hand; sv 08:30 Follow up: Response: No adverse reaction; IV Status: Completed infusion; IV Intake: sv 500ml 07:48 Drug: Ativan 1 mg Route: IVP; Site: left hand; sv 08:30 Follow up: Response: No adverse reaction sv Intake: 08:30 IV: 500ml; Total: 500ml. sv Outcome: 08:21 ER care complete, transfer ordered by . jo 14:19 Transferred by ground EMS Transfer form completed. bp 14:19 Condition: stable 14:19 Instructed on the need for transfer. 14:20 Patient left the ED. bp Signatures: Julissa Marte RN RN sv Bill Palm MD MD cha Herrera, [place] [id number] Armani Devries, RN RN bp Corrections: (The following items were deleted from the chart) 07:17 07:14 Chief complaint: EMS states: started Zyprexa on 02/19/20 and feels like she needs sv it changed because she's shaking and upset. Denies SI/HI. BP 140/88 HR-84 98% RA. sv 07:58 07:14 General: Appears in no apparent distress. comfortable, Behavior is calm, sv cooperative, appropriate for age, sv
--- NOTE | 2020-03-04 08:22 | EDPHYS ---
Physician Documentation [facility] Name: Tiffany Quinn Age: 49 yrs Sex: Female : 1970 Arrival Date: 03/04/2020 Time: 07:14 Bed 2 Private MD: ED Physician Bill Palm HPI: 03/04 07:25 This 49 yrs old Female presents to ER via EMS with complaints of jo Shaking/upset/needs med changed. 07:25 The patient presents to the emergency department with anxiety, psychosis, has jo experienced auditory hallucinations. Onset: The symptoms/episode began/occurred 3 day(s) ago. Past psychiatric history: Prior diagnosis: bipolar disorder, schizophrenia, Psychiatric medications include: Zyprexa. Associated signs and symptoms: Pertinent positives; anxiety, delusions, tremor. Severity of symptoms: At their worst the symptoms were moderate in the emergency department the symptoms are unchanged. The patient has experienced similar episodes in the past, multiple times. Historical: - Allergies: 07:18 Stadol; sv 07:18 Toradol; sv - Home Meds: 07:18 Fioricet Oral [Active]; Phenergan Oral [Active]; Zyprexa 5 mg Oral tab nightly [Active];sv - PMHx: 07:18 ADD/ADHD; Hernia; Migraines; PSYCH PROBLEMS; Schizophrenia; unsure if she is; Seizures; sv Bipolar disorder; - PSHx: 07:18 Hernia repair; Cholecystectomy; breast implants; sv - Immunization history:: Adult Immunizations up to date. - Social history:: Smoking status: . - Family history:: not pertinent. ROS: 07:25 Constitutional: Negative for fever, chills, and weight loss, Eyes: Negative for injury, jo pain, redness, and discharge, ENT: Negative for injury, pain, and discharge, Neck: Negative for injury, pain, and swelling, Cardiovascular: Negative for chest pain, palpitations, and edema, Respiratory: Negative for shortness of breath, cough, wheezing, and pleuritic chest pain, Abdomen/GI: Negative for abdominal pain, nausea, vomiting, diarrhea, and constipation, Back: Negative for injury and pain, : Negative for injury, bleeding, discharge, and swelling, MS/Extremity: Negative for injury and deformity, Skin: Negative for injury, rash, and discoloration, Neuro: Negative for headache, weakness, numbness, tingling, and seizure, Allergy/Immunology: Negative for hives, rash, and allergies, Endocrine: Negative for neck swelling, polydipsia, polyuria, polyphagia, and marked weight changes, Hematologic/Lymphatic: Negative for swollen nodes, abnormal bleeding, and unusual bruising. 07:25 Psych: Positive for anxiety, depression, auditory hallucinations. Exam: 07:25 Constitutional: This is a well developed, well nourished patient who is awake, alert, jo and in no acute distress. Head/Face: Normocephalic, atraumatic. Eyes: Pupils equal round and reactive to light, extra-ocular motions intact. Lids and lashes normal. Conjunctiva and sclera are non-icteric and not injected. Cornea within normal limits. Periorbital areas with no swelling, redness, or edema. ENT: Nares patent. No nasal discharge, no septal abnormalities noted. Tympanic membranes are normal and external auditory canals are clear. Oropharynx with no redness, swelling, or masses, exudates, or evidence of obstruction, uvula midline. Mucous membranes moist. Neck: Trachea midline, no thyromegaly or masses palpated, and no cervical lymphadenopathy. Supple, full range of motion without nuchal rigidity, or vertebral point tenderness. No Meningismus. Chest/axilla: Normal chest wall appearance and motion. Nontender with no deformity. No lesions are appreciated. Cardiovascular: Regular rate and rhythm with a normal S1 and S2. No gallops, murmurs, or rubs. Normal PMI, no JVD. No pulse deficits. Respiratory: Lungs have equal breath sounds bilaterally, clear to auscultation and percussion. No rales, rhonchi or wheezes noted. No increased work of breathing, no retractions or nasal flaring. Abdomen/GI: Soft, non-tender, with normal bowel sounds. No distension or tympany. No guarding or rebound. No evidence of tenderness throughout. Back: No spinal tenderness. No costovertebral tenderness. Full range of motion. Skin: Warm, dry with normal turgor. Normal color with no rashes, no lesions, and no evidence of cellulitis. MS/ Extremity: Pulses equal, no cyanosis. Neurovascular intact. Full, normal range of motion. Neuro: Awake and alert, GCS 15, oriented to person, place, time, and situation. Cranial nerves II-XII grossly intact. Motor strength 5/5 in all extremities. Sensory grossly intact. Cerebellar exam normal. Normal gait. 07:25 Psych: Behavior/mood is anxious, Affect is calm, Oriented to person, place, time, Patient has no thoughts/intents to harm self or others. Judgement / Insight is normal. Memory is normal. Delusions/hallucinations are present and described as random voices. 08:38 ECG was reviewed by the Attending Physician. [facility] Vital Signs: 07:14 BP 122 / 68; Pulse 80; Resp 16; Temp 98.6; Pulse Ox 100% ; Weight 72.57 kg; Height 5 sv ft. 2 in. (157.48 cm); Pain 0/10; 12:41 BP 116 / 78; Pulse 82; Resp 17; Temp 98; Pulse Ox 99% ; sv 14:00 BP 123 / 75; Pulse 77; Resp 17; Temp 98; Pulse Ox 99% ; bp 07:14 Body Mass Index 29.26 (72.57 kg, 157.48 cm) sv MDM: 07:15 Patient medically screened. [facility] 07:29 Data reviewed: vital signs, nurses notes, lab test result(s), EKG. [facility] 07:30 Differential diagnosis: acute psychotic break, depression, psychosis secondary to jo non-compliance. 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 Test interpretation: by ED physician or midlevel provider: ECG. Counseling: I had a detailed discussion with the patient and/or guardian regarding: the historical points, exam findings, and any diagnostic results supporting the discharge/admit diagnosis, lab results. 03/04 07:25 Order name: Acetaminophen; Complete Time: 09:50 [facility] 03/04 07:25 Order name: Basic Metabolic Panel; Complete Time: 09:50 [facility] 03/04 07:25 Order name: CBC with Diff; Complete Time: 09:50 [facility] 03/04 07:25 Order name: ETOH Level; Complete Time: 09:50 [facility] 03/04 07:25 Order name: Hepatic Function; Complete Time: 09:50 [facility] 03/04 07:25 Order name: PT-INR; Complete Time: 09:50 [facility] 03/04 07:25 Order name: Ptt, Activated; Complete Time: 09:50 [facility] 03/04 07:25 Order name: Salicylate [facility] 03/04 07:25 Order name: Urine Drug Screen; Complete Time: 09:13 [facility] 03/04 07:25 Order name: EKG; Complete Time: 07:26 [facility] 03/04 08:38 Order name: Urine Dipstick--Ancillary (enter results); Complete Time: 09:13 em03/04 08:38 Order name: Urine --Ancillary (enter results); Complete Time: 09:13 [facility] 03/04 07:25 Order name: Urine Test (obtain specimen); Complete Time: 08:34 [facility] 03/04 07:25 Order name: EKG - Nurse/Tech; Complete Time: 08:49 [facility] 03/04 07:25 Order name: IV Saline Lock; Complete Time: 07:48 [facility] 03/04 07:25 Order name: Labs collected and sent; Complete Time: 07:48 [facility] 03/04 07:25 Order name: Urine Dipstick-Ancillary (obtain specimen); Complete Time: 08:34 [facility] 03/04 08:01 Order name: Labs - recollect needed: recollect all; specimens hemolyzed; Complete Time: em1 08:39 03/04 12:16 Order name: Diet Regular; Complete Time: 12:16 sv EC:38 Rate is 75 beats/min. Rhythm is regular. QRS Amoret is Normal. OK interval is normal. QRS jo interval is normal. QT interval is normal. No Q waves. T waves are Normal. No ST changes noted. Clinical impression: Normal ECG and No evidence of ischemia. Interpreted by me. Reviewed by me. Administered Medications: 07:47 Drug: NS 0.9% 500 ml Route: IV; Rate: bolus; Site: left hand; sv 08:30 Follow up: Response: No adverse reaction; IV Status: Completed infusion; IV Intake: sv 500ml 07:48 Drug: Ativan 1 mg Route: IVP; Site: left hand; sv 08:30 Follow up: Response: No adverse reaction sv Disposition: 03/04/20 08:21 Transfer ordered to Psych Facility. Diagnosis are Unspecified psychosis not due to a substance or known physiological condition, Schizophrenia. - Reason for transfer: Higher level of care. - Accepting physician is to psych. - Condition is Stable. - Problem is new. - Symptoms have improved. Signatures: Dispatcher [employer] EDKapil Rhodeshanie, RN RN Bill Goss MD MD cha Martinez, [facility] Armani Devries, JIGNA RN bp Corrections: (The following items were deleted from the chart) 14:20 08:21 03/04/2020 08:21 Transfer ordered to Psych Facility. Diagnosis is Unspecified bp psychosis not due to a substance or known physiological condition; Schizophrenia. Reason for transfer: Higher level of care. Accepting physician is to psych. Condition is Stable. Problem is new. Symptoms have improved. jo
[2020-03-04 09:02] LABS: Barbiturates POSITIVE (NEGATIVE); Benzodiazepines NEGATIVE (NEGATIVE); Cocaine NEGATIVE (NEGATIVE); METHAMPHETAM NEGATIVE (NEGATIVE); Methadone NEGATIVE (NEGATIVE); Opiates NEGATIVE (NEGATIVE); Phencyclidine NEGATIVE (NEGATIVE); THC Cannibis NEGATIVE (NEGATIVE)
[2020-03-04 09:09] LABS: Urine Blood NEGATIVE (NEG); Urine Glucose NEGATIVE (NEG); Urine Protein NEGATIVE (NEG); Urine pH 6.5 (5.0-7.0)
[2020-03-04 09:12] LABS: Absolute Lymphocytes (CBC) 2.6 K/uL (0.7-4.9); Basophils % 0.8 % (0-1.3); Lymphocytes % 38.1 % (15.3-44.8); MPV 8.2 fL (7.6-11.3); RBC Red Blood Cell Count 4.31 M/uL (3.86-4.86)
[2020-03-04 09:26] LABS: ALT/SGPT 18 U/L (12-78); AST/SGOT 19 U/L (15-37); Albumin 3.6 g/dL (3.4-5.0); Alkaline Phosphatase 87 U/L (45-117); BUN Blood Urea Nitrogen 10 mg/dL (7-18); Bicarbonate 24 mmol/L (21-32); Bilirubin Direct < 0.1 mg/dL (0-0.2); Bilirubin Total 0.2 mg/dL (0.2-1.0); Glucose Level 89 mg/dL (74-106); Potassium 4.3 mmol/L (3.5-5.1); Protein, Total 7.3 g/dL (6.4-8.2); Sodium Level 141 mmol/L (136-145)
[2020-03-04 09:27] LABS: Protime INR 0.84
[2020-03-04 14:29] VITALS: TEMP 98; O2SAT 99
[2020-03-04 14:30] VITALS: BP 123/75
--- NOTE | 2020-03-04 18:45 | EKG ---
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
== END 2020-03-04 14:20 ==
LOC: ER 07:12
DX: F29 Unspecified psychosis not due to a substance or known physiological condition (principal); F20.9 Schizophrenia, unspecified; F31.9 Bipolar disorder, unspecified; Z88.5 Allergy status to narcotic agent; Z98.82 Breast implant status
CPT/HCPCS: 96361; 93005; 85025; 80048; 36415; 80320; 80329 ×2; 81025; 85610; 80076; 80307 ×8; 85730; 81003; 96374; 99285; J7040

== ENCOUNTER 2020-03-17 12:20 | Emergency (ER) | payer OTHER ==
--- OUTSIDE RECORDS SUMMARY | 2020-03-17 12:24 | XMS REPORT | Continuity of Care Document ---
:1970 Author Organization [employer] Care Team Providers Name Role Phone [employer] Unavailable Un available Problems Problem Status Onset [...] tab, Active hydrochloride PO, Q6H, PRN 2018 [facility] 50 MG Oral Pain Score Tablet 1-3, X 5 day, # 20 tab, 0 Refill(s) Metronidazole 500 mg = 1 Active 500 MG Oral tab, PO, 2019 [facility] Tablet [id number], X 4 day, # 12 tab, 0 Refill(s) ciprofloxacin 500 mg = 1 Active 500 mg oral tab, PO, 2019 [facility] tablet [id number], X 4 day, # 8 tab, 0 Refill(s) Potassium Notes: (Same Inactive Chloride as: K-Dur 20) 2018 [facility] "Do Not Crush" Give with food and full glass of water For patients unable to swallow tablet, dissolve in one half glass of water. Allow about 2 minutes for the tablets to disintegrate. Stir before giving to prepare slurry and administer. Please exclude Patient’ s with feeding tube less than 14 Greek (Dobhoff, J-tube etc) and pediatric and patients. Strattera 0.5 mg/kg, No Longer Route: PO, Active 2018 [facility] QAM, Dosing Weight 75, kg, Start date: 01/24/19 9:00:00 CDT, Duration: 30 day, Stop date: 02/22/19 9:00:00 CDT lithium Notes: Do not No Longer crush or chew. Active 2018 [facility] (Same as: Eskalith-CR) Risperdal Notes: (Same No Longer as: Risperdal) Active 2018 [facility] Strattera 1 mg, Route: No Longer PO, QPM, Active 2018 [facility] Dosing Weight 75, kg, Start date: 01/23/19 17:00:00 CDT, Duration: 30 day, Stop date: 02/21/19 17:00:00 CDT normal saline 1,000 mL, No Longer 0.9% IV 1,000 Rate: 100 [facility], Infuse over: 10 hr, Route: IV, Dosing Weight 75 kg, Total Volume: 1,000, Start date: 01/23/19 14:18:00 CDT, Duration: 30 day, Stop date: 02/22/19 14:17:00 CDT, 1.84, m2 Clonazepam Notes: (Same No Longer As: KlonoPIN) Active 2018 [facility] Flagyl Notes: (Same No Longer as: Flagyl) Active 2018 [facility] Take with food/ avoid alcohol Cipro Notes: May No Longer interfere Active 2018 [facility] w/enteral feedings - Take 1 hr before or 2 hrs after antacids, dairy pdt & minerals. On empty stomach. tramadol 50 mg = 1 tab, No Longer hydrochloride PO, Q6H, PRN Active 2018 [facility] 50 MG Oral Pain Score Tablet 1-3, 0 Refill(s) potassium 40 mEq, PO, Active chloride 20 mEq ONCE, 0 2018 [facility] oral tablet, Refill(s) extended release Metronidazole 500 mg, PO, No Longer 500 MG Oral [id number], 0 Active 2018 [facility] Tablet [Flagyl] Refill(s) Ciprofloxacin 500 mg, PO, No Longer 500 MG Oral [id number], 0 Active 2018 [facility] Tablet [Cipro] Refill(s) Potassium Notes: (Same Inactive Chloride as: K-Dur 20) 2019 [facility] "Do Not Crush" Give with food and full glass of water For patients unable to swallow tablet, dissolve in one half glass of water. Allow about 2 minutes for the tablets to disintegrate. Stir before giving to prepare slurry and administer. Please exclude Patient’ s with feeding tube less than 14 Greek (Dobhoff, J-tube etc) and pediatric and patients. Pepcid Notes: (Same No Longer as: Pepcid) Active 2018 [facility] Strattera 0.5 mg/kg, PO, Active QAM, 0 2018 [facility] Refill(s) lithium 450 mg 450 mg = 1 Active oral tablet, tab, PO, 2018 [facility] extended Bedtime, # 60 release tab, 0 Refill(s) clonazePAM 0.5 0.5 mg = 1 Active mg oral tablet tab, PO, TID, 2018 [facility] # 90 tab, 0 Refill(s) Risperidone 0.5 0.5 mg = 1 Active MG Oral Tablet tab, PO, BID, 2018 [facility] [Risperdal] 0 Refill(s) Zosyn Notes: (Same No Longer as: Zosyn) Active 2018 [facility] Dosing based on Piperacillin component MEDICATION WASTE Product Size: 3375 mg Product Wasted: ___ mg Tramadol Notes: Not to No Longer exceed Active 2018 [facility] 400mg/day. (Same As: Ultram) normal saline 1,000 mL, No Longer 0.9% IV 1,000 Rate: 150 Active 2018 [facility] t mL ml/hr, Infuse over: 6.7 hr, Route: IV, Dosing Weight 75.994 kg, Total Volume: 1,000, Start date: 01/22/19 4:48:00 CDT, Duration: 30 day, Stop date: 02/21/19 4:47:00 CDT Ondansetron Notes: (Same No Longer as: Zofran) Active 2018 [facility] MEDICATION WASTE Product Size: 4 mg Product Wasted: ___ mg Glucagon 1 mg, Route: No Longer IM, Drug form: Active 2018 [facility] PDR/INJ, PRN, Dosing Weight 75.994, kg, PRN Blood Glucose Results, Start date: 01/22/19 4:47:00 CDT, Duration: 30 day, Stop date: 02/21/19 4:46:00 CDT Dextrose 50% 12.5 gm, 25 No Longer Syringe mL, Route: Active 2018 [facility] IVP, Drug Form: INJ, Dosing Weight 75.994, kg, PRN, PRN Blood Glucose Results, Start date: 01/22/19 4:47:00 CDT, Duration: 30 day, Stop date: 02/21/19 4:46:00 CDT Zofran Notes: (Same Inactive as: Zofran) 2018 [facility] MEDICATION WASTE Product Size: 4 mg Product Wasted: ___ mg NS (Bolus) IV 1,000 mL, Inactive 1,000 ml/hr, 2018 [facility] Infuse Over: 1 hr, Route: IV, 1,000, Drug form: INJ, ONCE, Priority: STAT, Dosing Weight 75.994 kg, Start date: 01/22/19 3:52:00 CDT, Stop date: 01/22/19 3:52:00 CDT Visipaque 320 Notes: (Same Inactive mg/mL as: 2019 [facility] injectable Visipaque). solution WASTE: F/P - Black; E - [employer] Zosyn Notes: (Same Inactive as: Zosyn) 2018 [facility] Dosing based on Piperacillin component MEDICATION WASTE Product Size: 3375 mg Product Wasted: ___ mg NS (Bolus) IV 1,000 mL, Inactive 1,000 ml/hr, 2018 [facility] Infuse Over: 1 hr, Route: IV, 1,000, Drug form: INJ, ONCE, Priority: STAT, Dosing Weight 75.994 kg, Start date: 01/22/19 0:44:00 CDT, Stop date: 01/22/19 0:44:00 CDT Zofran Notes: (Same No Longer as: Zofran) Active 2018 [facility] MEDICATION WASTE Product Size: 4 mg Product Wasted: ___ mg Saline Flush Notes: Same No Longer 0.9% as: BD Active 2018 [facility] Posiflush Sterile NS (Bolus) IV 1,000 mL, No Longer 1,000 ml/hr, Active 2018 [facility] Infuse Over: 1 hr, Route: IV, 1,000, [...] AGAP 8.6 10.0 - 01/26 ES 20.0 [facility] ELECTROLYT Chloride Lvl 107 95 - 109 01/26 [facility] ELECTROLYT CO2 27 24 - 32 01/26 [facility] ELECTROLYT Sodium Lvl 139 135 - 145 01/26 [facility] ELECTROLYT Potassium 3.6 3.5 - 5.1 01/26 [facility] Lv [facility] ELECTROLYT Creatinine 0.70 0.50 - 01/26 ES Lvl 1.40 [facility] ELECTROLYT Calcium Lvl 8.4 8.5 - 10.5 01/26 [facility] ELECTROLYT eGFR 103 01/26 Result Comment: The [facility] eGFR is calculated using the CKD-EPI formula. [...] Glucose Lvl 86 70 - 99 01/26 [facility] ELECTROLYT BUN 6 7 - 22 01/26 [facility] HEMATOLOGY Hgb 11.6 12.0 - 01/26 MH 16.0 [facility] HEMATOLOGY RBC 3.78 4.20 - 01/26 MH 5.40 /2018 [facility] HEMATOLOGY RDW 13.3 11.5 - 01/26 MH 14.5 [facility] HEMATOLOGY MCHC 34.0 32.0 - 01/26 MH 36.0 [facility] HEMATOLOGY WBC 6.3 3.7 - 10.4 01/26 [facility] HEMATOLOGY MCH 30.7 27.0 - 01/26 MH 31.0 [facility] HEMATOLOGY MCV 90.3 80.0 - 01/26 98.0 [facility] HEMATOLOGY Hct 34.2 36.0 - 01/26 MH 48.0 [facility] HEMATOLOGY Platelet 412 133 - 450 01/26 [facility] HEMATOLOGY MPV 7.5 7.4 - 10.4 01/26 [facility] CHEM PANEL eGFR 108 01/25 [facility] Comment: The [facility] eGFR is calculated using the CKD-EPI formula. [...] Calcium Lvl 8.5 8.5 - 10.5 01/25 [facility] CHEM PANEL AGAP 13.3 10.0 - 01/25 MH 20.0 [facility] CHEM PANEL CO2 24 24 - 32 01/25 [facility] CHEM PANEL Chloride Lvl 109 95 - 109 01/25 [facility] CHEM PANEL Glucose Lvl 81 70 - 99 01/25 [facility] CHEM PANEL BUN 2 7 - 22 01/25 [facility] CHEM PANEL Potassium 3.3 3.5 - 5.1 01/25 [facility] CHEM PANEL Creatinine 0.60 0.50 - 01/25 MH Lvl 1.40 [facility] CHEM PANEL Sodium Lvl 143 135 - 145 01/25 [facility] MOLECULAR C difficile Negative Negative 01/23 DIAGNOSTIC DNA (01/23/19 11:22 AM) [facility] CHEM PANEL Procalcitoni 2.76 0.00 - 01/23 Result n Lvl 0.10 Comment: [facility] Critical Result(s) called to A Levin at 01/23/2019 12:56 by cz. Read back OK. CHEM PANEL Lactic Acid 0.9 0.5 - 2.2 01/23 [facility] CHEM PANEL Magnesium 2.0 1.8 - 2.4 01/23 [facility] CHEM PANEL eGFR 115 01/23 Result Comment: The [facility] eGFR is calculated using the CKD-EPI formula. [...] PANEL CO2 23 24 - 32 01/23 [facility] CHEM PANEL Chloride Lvl 113 95 - 109 01/23 [facility] CHEM PANEL Potassium 3.1 3.5 - 5.1 01/23 [facility] CHEM PANEL Sodium Lvl 143 135 - 145 01/23 [facility] CHEM PANEL BUN 5 7 - 22 01/23 [facility] CHEM PANEL Creatinine 0.50 0.50 - 04 MH Lvl 1.40 /2018 [facility] CHEM PANEL Calcium Lvl 7.8 8.5 - 10.5 01/23 [facility] CHEM PANEL Glucose Lvl 83 70 - 99 01/23 [facility] CHEM PANEL AGAP 10.1 10.0 - 01/23 20.0 /2018 [facility] HEMATOLOGY Eosinophils 0.2 0.0 - 0.5 01/23 # [facility] HEMATOLOGY Monocytes # 0.8 0.0 - 0.8 01/23 [facility] HEMATOLOGY Neutrophils 5.5 1.5 - 8.1 01/23 [facility] HEMATOLOGY Lymphocytes 2.2 1.0 - 5.5 01/23 [facility] HEMATOLOGY Basophils 0.1 0.0 - 1.0 01/23 [facility] HEMATOLOGY Segs 63.6 45.0 - 01/23 75.0 /2018 [facility] HEMATOLOGY Monocytes 8.9 2.0 - 12.0 01/23 [facility] HEMATOLOGY Eosinophils 2.3 0.0 - 4.0 01/23 [facility] HEMATOLOGY RBC Morph Normal 01/23 (01/23/19 5:50 AM) [facility] HEMATOLOGY Plt Morph Normal 01/23 (01/23/19 5:50 AM) [facility] HEMATOLOGY Lymphocytes 25.1 20.0 - 01/23 40.0 [facility] HEMATOLOGY RDW 13.1 11.5 - 01/23 14.5 /2018 [facility] HEMATOLOGY Platelet 327 133 - 450 01/23 [facility] HEMATOLOGY MPV 7.7 7.4 - 10.4 01/23 [facility] HEMATOLOGY WBC 8.6 3.7 - 10.4 01/23 [facility] HEMATOLOGY Hgb 10.0 12.0 - 01/23 Result MH 16.0 Comment: [facility] Notified Raghavendra 01/23/2019 07:32 by smt. HEMATOLOGY MCHC 34.6 32.0 - 04 36.0 /2018 [facility] HEMATOLOGY Hct 28.7 36.0 - 01/23 48.0 /2018 [facility] HEMATOLOGY MCV 87.8 80.0 - 01/23 98.0 /2018 [facility] HEMATOLOGY MCH 30.4 27.0 - 04 31.0 [facility] HEMATOLOGY RBC 3.27 4.20 - 04 5.40 /2019 [facility] Culture: Normal Enteric Pam Isolated 01/22 Stool No Salmonella Or Shigella Isolated [facility] No Campylobacter Isolated CHEM PANEL Lactic Acid 2.4 0.5 - 2.2 01/22 Lvl [facility] CHEM PANEL Lactic Acid 3.0 0.5 - 2.2 01/22 Lvl [facility] URINE AND UA Spec Grav 1.014 <=1.030 01/22 STOOL [facility] URINE AND UA pH 6.0 5.0 - 8.0 01/22 STOOL [facility] URINE AND UA Protein Negative Negative 01/22 STOOL (01/22/19 2:14 AM) [facility] Glucose Negative Negative 01/22 STOOL *NA* /2018 [facility] (01/22/19 2:14 AM) URINE AND UA Ketones Negative Negative 01/22 STOOL *NA* /2018 [facility] (01/22/19 2:14 AM) URINE AND UA Bili Negative Negative 01/22 STOOL *NA* [facility] (01/22/19 2:14 AM) URINE AND UA Nitrite Negative Negative 01/22 STOOL (01/22/19 2:14 AM) /2018 [facility] URINE AND UA <=1.0 0.1 - 1.0 01/22 STOOL Urobilinogen mg/dL [facility] URINE AND UA Sq Epi Occasional Few /LPF 01/22 STOOL /LPF /2018 [facility] URINE AND UA Leuk Est Negative Negative 01/22 STOOL (01/22/19 2:14 AM) /[facility] Blood Negative Negative 01/22 STOOL (01/22/19 2:14 AM) /2018 [facility] URINE AND UA Mucus Few /LPF None Seen 01/22 STOOL /LPF [facility] URINE AND UA RBC <1 0 - 2 01/22 STOOL [facility] URINE AND UA Hyal Cast 25 0 - 2 01/22 STOOL [facility] URINE AND UA WBC 2 0 - 5 01/22 STOOL [facility] URINE AND UA Color Light Yellow Yellow 01/22 STOOL *NA* [facility] (01/22/19 2:14 AM) URINE AND UA Turbidity Clear Clear 01/22 STOOL (01/22/19 2:14 AM) /2018 [facility] est METAL [place] Lvl 0.90 0.50 - 01/22 1.50 /2018 [facility] BLOOD BANK ABO/Rh A POS 01/22 RESULTS /2018 [facility] BLOOD BANK Antibody Negative 01/22 RESULTS Scrn (01/22/19 12:01 AM) /2018 [facility] CARDIAC Troponin-I <0.02 0.00 - 01/22 ENZYMES 0.40 [facility] CARDIAC Total CK 49 12 - 191 01/22 ENZYMES /2018 [facility] CHEM PANEL Bili Total 0.6 0.2 - 1.3 01/22 /2018 [facility] CHEM PANEL Alk Phos 100 39 - 136 01/22 /2018 [facility] CHEM PANEL Albumin Lvl 4.0 3.5 - 5.0 01/22 [facility] CHEM PANEL AST 17 0 - 37 01/22 /2018 [facility] CHEM PANEL ALT 25 0 - 65 01/22 [facility] CHEM PANEL Total 8.1 6.4 - 8.4 01/22 Protein /2018 [facility] CHEM PANEL B/C Ratio 20 6 - 25 01/22 /2018 [facility] CHEM PANEL A/G Ratio 1.0 0.7 - 1.6 01/22 /2018 [facility] CHEM PANEL Globulin 4.1 2.7 - 4.2 01/22 /2018 [facility] CHEM PANEL Procalcitoni 6.90 0.00 - 01/22 Result n Lvl 0.10 Comment: [facility] Critical Result(s) called to Eliana Vega at 01/22/2019 00:50 by VV. Read back OK. ENDOCRINOL S Preg Negative Negative 01/22 OGY *NA* /2018 [facility] (01/22/19 12:01 AM) HEMATOLOGY Eosinophils 0.1 0.0 - 0.5 01/22 MH # /2019 [facility] HEMATOLOGY Monocytes # 0.7 0.0 - 0.8 01/22 /2018 [facility] HEMATOLOGY Basophils # 0.0 0.0 - 0.2 01/22 /2018 [facility] HEMATOLOGY Basophils 0.0 0.0 - 1.0 01/22 /2018 [facility] HEMATOLOGY Eosinophils 0.9 0.0 - 4.0 01/22 /2018 [facility] HEMATOLOGY Neutrophils 8.6 1.5 - 8.1 01/22 # /2019 [facility] HEMATOLOGY Lymphocytes 0.6 1.0 - 5.5 01/22 MH # /2019 [facility] Segs 86.5 45.0 - 01/22 MH 75.0 /2019 [facility] Lymphocytes 5.7 20.0 - 01/22 MH 40.0 /2018 [facility] Monocytes 6.9 2.0 - 12.0 01/22 /2018 [facility] WBC 9.9 3.7 - 10.4 01/22 /2018 [facility] MCHC 32.8 32.0 - 01/22 MH 36.0 /2018 [facility] RDW 13.6 11.5 - 01/22 14.5 /2018 [facility] Platelet 443 133 - 450 01/22 [facility] MPV 7.3 7.4 - 10.4 01/22 [facility] Hgb 14.0 12.0 - 01/22 16.0 /2018 [facility] RBC 4.85 4.20 - 01/22 5.40 /2018 [facility] Hct 42.7 36.0 - 01/22 MH 48.0 /2018 [facility] MCH 29.0 27.0 - 01/22 31.0 /2018 [facility] MCV 88.2 80.0 - 01/22 98.0 /2018 [facility] INR 0.96 0.85 - 01/22 MH 1.17 /2018 [facility] PT 12.6 12.0 - 01/22 14.7 /2018 [facility] PTT 25.9 22.9 - 01/22 35.8 /2018 [facility] Pathology Reports No Data Provided for This [...] dislocation of the left ankl e. SL: [id number] ED Abdomen/Pelvis IV Clinical Indication: Diarrhe a low blood pressure, abdominal pain. 01/22/2019 [facility] contrast only CT Comparison: None TECHNIQUE: Sequential [...] Mild sigmoid diverticulosis without diverticu litis. SL: [id number] Chest 1view DX Clinical Indication: Undifferentiated sepsis. [facility] Comparison: None FINDINGS: AP view of the chest submitted for interpretatio n. Lungs are clear. Heart size is normal. Central pulmonary vasculat ure appears normal. No effusion. No pneumothorax. No radiographically apparent acute osseous abnor mality. IMPRESSION: 1. No radiographically apparent acute cardiopulm onary process. SL: [id number] Consultation Notes No Data Provided for This Section Discharge Summaries No Data Provided for This Section History and Physicals No Data Provided for This Section Vital Signs Vital Sign Value Date Comments Source Temperature Oral (F) 98.6 F 01/28[facility] Systolic (mm Hg) 137 01/28/2019 [facility] t Diastolic (mm Hg) 84 01/28/[address] [facility] st Heart Rate 82 01/28/2019 [facility] Respitory Rate 18 01/28/2019 [facility] Systolic (mm Hg) 113 01/27/2019 [facility] t Diastolic (mm Hg) 72 01/27/[address] [facility] [address] Heart Rate 77 01/27/2019 [facility] Respitory Rate 18 01/27/2019 [facility] Temperature Oral (F) 98.5 F 01/27/[facility] Systolic (mm Hg) 108 01/27/2019 [facility] t Diastolic (mm Hg) 71 01/27/[address] [facility] [address] Temperature Oral (F) 98.5 F 01/27/2019 [facility] Heart Rate 86 01/27/2019 [facility] Respitory Rate 18 01/27/2019 [facility] Height 157.48 cm 01/22/2019 [facility] BMI Calculated 30.24 01/22/2019 [facility] Weight 75 01/22/2019 [facility] Weight 75.994 01/22/2019 [facility] Encounters Location Location Encounter Encounter Reason Attending ADM [place] Source Details Type Number For Provider Date Date [facility] [id number] Ed 01/22 01/28 Yonis Sandovalni /2018 [facility] Procedures No Data Provided for This Section Assessment and Plan Assessment and Plan Date Source Extracted from:Title: Discharge Summary 01/28/2019 [facility] Author: Axel Arriaga MD Date: 01/26/19 Discharge [...] abdominal pain, [place] [facility] [place]. She complains of [...] and recommended to be transferred back to [facility]. Physical Exam: Vitals Tmp(F) Pulse BP RR [...] MD on 01/27/2019 15:26 Patient was to [facility] denied her. I spoke to physician at [facility] who has accepted patient. Extracted from:Title: Progress Note Author: Axel Arriaga MD Date: 01/25/19 48 year old female Admitted with hypotension, abdominal pain and sepsis. Was at [facility] for exacerbation of depression/bipolar disorder. Ct abd/pelvis showed mild enterocolitis . CXR and UA are clear.No leucocytosis. But lactic acid and pro-calcitonin elevated and patient was significantly hypotensive on admission. Patient is currently on IV antibiotics and IV fluids. Colitis improving Hypotension secondary to colitis improved with IV fluids Depression and bipolar disorder with re cent admission at [facility] with concern for psychosis Hypokalemia secondary to diarrhea treated Anemia of chronic disease Plan: Will DC IV fluids, will advance diet to regular diet We will continue with Cipro and Flagyl We will replacepotassiump.o. Discussed with psych response team. The ymentioned that patient is having some delusions but otherwiseno suicidal homicidal ideations. They haveclearthe patient to go back [place] [facility] [place] once medica lly cleared. Exclusionary paperwork is i n the chart to be signed bythe physician once medically cleared. Discussed in MDR's: Likely dischargeto morrowif tolerating regular diet and labs arewnl Extracted from:Title: History and Physical Author: Ed Demarco DO Date: 01/22/19 48 y/o female with history of bipolar di sorder [place] [facility] depression and abdominal hernia brought [place] via [place] [facility] [place]. 1.Severe sepsis(R65.20) Hypotensive [...] Date Source Social History TypeResponse 01/22/2019 [facility] Smoking Status Light tobacco smoker; Exposure to Tobacc o Smoke None; Cigarette Smoking Last 365 Days No; Reg Smoking Cessation Counseling No entered on: 01/22/19 Family History No Data Provided for This Section Advance Directives No Data Provided for This Section Functional Status No Data Provided for This Section
--- OUTSIDE RECORDS SUMMARY | 2020-03-17 12:25 | XMS REPORT ---
:1970 Author Organization [facility] t Address [address] [place] [address] Care Team Providers Name Role Phone UNKNOWN Primary Care Physician Unavailable Dav Attending Clinician LOS Attending Clinician Unavailable Dav Admitting Clinician LOS Admitting Clinician Unavailable Problems Condition Condition Condition Status Onset Resolution Last Treating Co mments Source Name Details Category Date Date Treatment Clinician Date LOW PB Diagnosis Active 2019-01-22 MH 3-30 01:52:00 [facility] LOW PB 00:00: st 00 Active 01/21/2019 [facility] INFECTIOUS Diagnosis Active 2019-02-06 GASTROENTE 01-21 08:58:00 [place] RITIS AND 00:00: st COLITIS INFECTIOUS 00 GASTROENTE RITIS AND COLITIS Active 01/21/2019 [facility] INFECTIOUS Diagnosis Active 2019-02-06 GASTROENTE 08:58:[address] [place] [address] COLITIS, INFECTIOUS GASTROENTE RITIS AND COLITIS, Active [facility] Allergies, Adverse Reactions, Alerts Allergy Allergy Status Severity Reaction(s) Onset Inactive Treating Comm ents Source Name Type Date Date Clinician Phenerga Phenerga Active [place] [facility] Social History Smoking Status Start Date Stop Date Source Social History 2019-01-22 05:00:12 [facility] Medications Ordered Filled Start Stop Current Ordering Indication Dosage Frequency Signature Comments Components Source Medication Medication Date Date Medication? Clinician (SIG) Name Name Ondansetron 2019- Yes 4 mg = 1 4 MG Oral 4-04 tab, PO, [place] Tablet 17:35: Q6H, PRN st [Zofran] 00 Nausea/Vom iting, # 20 tab, 0 Refill(s) tramadol Yes 50 mg = 1 hydrochlori 4-04 tab, PO, [place] de 50 MG 17:35: Q6H, PRN st Oral Tablet 00 Pain Score 1-3, X 5 day, # 20 tab, 0 Refill(s) Metronidazo Yes 500 mg = 1 le 500 MG 4-04 tab, PO, e Oral Tablet 17:35: ABXQ8H, X s t 00 4 day, # 12 tab, 0 Refill(s) ciprofloxac Yes 500 mg = 1 in 500 mg 4-04 tab, PO, e oral tablet 17:35: [id number], X st 00 4 day, # 8 tab, 0 Refill(s) Potassium No Notes: Chloride 01-25 (Same as: 13:26: K-Dur 20) "Do Not Crush" Give with food and full glass of water For patients unable to swallow tablet, dissolve in one half glass of water. Allow about 2 minutes for the tablets to disintegra te. Stir before giving to prepare slurry and administer . Please exclude Patient s with feeding tube less than 14 Cam[place] (Dobhoff, J-tube etc) and pediatric and patients. Strattera No 0.5 mg/kg, 01-24 Route: PO, 14:00: QAM, Dosing Weight 75, kg, Start date: 01/24/19 9:00:00 CDT, Duration: 30 day, Stop date: 02/22/19 9:00:00 CDT lithium No Notes: Do 01-24 not crush 02:00: or chew. (Same as: Eskalith-C R) Risperdal No Notes: 01-23 (Same as: 22:00: Risperdal) Strattera No 1 mg, MH 01-23 Route: PO, 22:00: QPM, Dosing Weight 75, kg, Start date: 01/23/19 17:00:00 CDT, Duration: 30 day, Stop date: 02/21/19 17:00:00 CDT normal No 1,000 mL, saline 0.9% 01-23 Rate: 100 IV 1,000 mL 19:18: ml/hr, st Infuse over: 10 hr, Route: IV, Dosing Weight 75 kg, Total Volume: 1,000, Start date: 01/23/19 14:18:00 CDT, Duration: 30 day, Stop date: 02/22/19 14:17:00 CDT, 1.84, m2 Clonazepam No Notes: 01-23 (Same As: 18:00: KlonoPIN) Flagyl No Notes: 01-23 (Same as: 15:00: Flagyl) Take with food/ avoid alcohol Cipro No Notes: February 01-23 interfere 15:00: w/enteral feedings - Take 1 hr before or 2 hrs after antacids, dairy pdt & minerals. On empty stomach. tramadol No 50 mg = 1 hydrochlori 01-23 tab, PO, [place] de 50 MG 14:20: Q6H, PRN st Oral Tablet 00 Pain Score 1-3, 0 Refill(s) potassium Yes 40 mEq, chloride 20 01-23 PO, ONCE, mEq oral 14:20: 0 st tablet, 00 Refill(s) extended release Metronidazo No 500 mg, le 500 MG 01-23 PO, [facility] Oral Tablet 14:20: ABXQ8H, 0 s t [Flagyl] 00 Refill(s) Ciprofloxac No 500 mg, in 500 MG 01-23 PO, [facility] Oral Tablet 14:20: [id number], 0 st [Cipro] 00 Refill(s) Potassium No Notes: Chloride 01-23 (Same as: [facility] e 14:17: K-Dur 20) "Do Not Crush" Give with food and full glass of water For patients unable to swallow tablet, dissolve in one half glass of water. Allow about 2 minutes for the tablets to disintegra te. Stir before giving to prepare slurry and administer . Please exclude Patient s with feeding tube less than 14 Cam[place] (Dobhoff, J-tube etc) and pediatric and patients. Pepcid 2019-0 No Notes: 01-22 (Same as: 22:00: Pepcid) Strattera Yes 0.5 mg/kg, 01-22 PO, QAM, 0 21:08: Refill(s) st lithium 450 2018- Yes 450 mg = 1 MH mg oral 3-31 tab, PO, South tablet, 21:08: Bedtime, # st extended 00 60 tab, 0 release Refill(s) clonazePAM Yes 0.5 mg = 1 M H 0.5 mg oral 3-31 tab, PO, [place] tablet 21:08: TID, # 90 st 00 tab, 0 Refill(s) Risperidone Yes 0.5 mg = 1 MH 0.5 MG Oral 3-31 tab, PO, [place] Tablet 21:08: BID, 0 st [Risperdal] 00 Refill(s) Zosyn No Notes: 01-22 (Same as: 16:00: Zosyn) Dosing based on Piperacill in component MEDICATION WASTE Product Size: 3375 mg Product Wasted: ___ mg Tramadol No Notes: Not 01-22 to exceed 15:03: 400mg/day. (Same As: Ultram) normal No 1,000 mL, saline 0.9% 01-22 Rate: 150 Sasha we IV 1,000 mL 09:48: ml/hr, Infuse over: 6.7 hr, Route: IV, Dosing Weight 75.994 kg, Total Volume: 1,000, Start date: 01/22/19 4:48:00 CDT, Duration: 30 day, Stop date: 02/21/19 4:47:00 CDT Ondansetron No Notes: 01-22 (Same as: 09:47: Zofran) MEDICATION WASTE Product Size: 4 mg Product Wasted: ___ mg Glucagon No 1 mg, 01-22 Route: IM, 09:47: Drug form: PDR/INJ, PRN, Dosing Weight 75.994, kg, PRN Blood Glucose Results, Start date: 01/22/19 4:47:00 CDT, Duration: 30 day, Stop date: 02/21/19 4:46:00 CDT Dextrose No 12.5 gm, 50% Syringe 01-22 25 mL, [facility] e 09:47: Route: st 00 IVP, Drug Form: INJ, Dosing Weight 75.994, kg, PRN, PRN Blood Glucose Results, Start date: 01/22/19 4:47:00 CDT, Duration: 30 day, Stop date: 02/21/19 4:46:00 CDT Zofran No Notes: 01-22 (Same as: 08:56: Zofran) st MEDICATION WASTE Product Size: 4 mg Product Wasted: ___ mg NS (Bolus) No 1,000 mL, IV 01-22 1,000 08:52: ml/hr, st 00 Infuse Over: 1 hr, Route: IV, 1,000, Drug form: INJ, ONCE, Priority: STAT, Dosing Weight 75.994 kg, Start date: 01/22/19 3:52:00 CDT, Stop date: 01/22/19 3:52:00 CDT Visipaque No Notes: 320 mg/mL 01-22 (Same as: injectable 06:42: Visipaque) s t solution 00 . WASTE: F/P - Black; E - Municipal Trash Bin Zosyn No Notes: 01-22 (Same as: 06:10: Zosyn) Dosing based on Piperacill in component MEDICATION WASTE Product Size: 3375 mg Product Wasted: ___ mg NS (Bolus) No 1,000 mL, IV 01-22 1,000 05:44: ml/hr, st 00 Infuse Over: 1 hr, Route: IV, 1,000, Drug form: INJ, ONCE, Priority: STAT, Dosing Weight 75.994 kg, Start date: 01/22/19 0:44:00 CDT, Stop date: 01/22/19 0:44:00 CDT Zofran No Notes: 01-22 (Same as: 04:52: Zofran) MEDICATION WASTE Product Size: 4 mg Product Wasted: ___ mg Saline No Notes: Flush 0.9% 01-22 Same as: 04:52: BD Posiflush Sterile NS (Bolus) No 1,000 mL, IV 01-22 1,000 04:51: ml/hr, Infuse Over: 1 hr, Route: IV, 1,000, Drug form: INJ, ONCE, Priority: STAT, Dosing Weight 75.994 kg, Start date: 01/21/19 23:51:00 CDT, Stop date: 01/21/19 23:51:00 CDT Vital Signs Vital Name Observation Time Observation Value Comments Source Temperature Oral (F) 2019-01-28 01:16:00 98.6 F [facility] Systolic (mm Hg) 2019-01-28 01:16:00 [place] Diastolic (mm Hg) 2019-01-28 01:16:00 [facility] Heart Rate 2019-01-28 01:16:00 [facility] Respitory Rate 2019-01-28 01:16:00 [facility] Systolic (mm Hg) 2019-01-27 20:42:00 [place] Diastolic (mm Hg) 2019-01-27 20:42:00 [facility] Heart Rate 2019-01-27 20:42:00 [facility] 2019-[facility]-27 [facility] 2019-01-27 20:42:00 98.5 F [facility] Systolic (mm Hg) 2019-01-27 17:00:00 [place] Diastolic (mm Hg) 2019-01-27 17:00:00 [facility] Temperature Oral (F) 2019-01-27 17:00:00 98.5 F [facility] Heart Rate 2019-01-27 17:00:00 [facility] Respitory Rate 2019-01-27 17:00:00 [place] Height 2019-01-22 14:35:00 157.48 cm [facility] BMI Calculated 2019-01-22 14:35:00 [facility] Weight 2019-01-22 14:35:00 [facility] Weight 2019-01-22 04:34:00 [facility] Procedures This patient has no known procedures. Encounters Start End Encounter Admission Attending Care Care Encounter Source Date/Time Date/Time Type Type Clinicians Facility Department ID 2019-01-22 Inpatient E [facility] [address] 04:39:00 2019-01-22 2019-01-28 Inpatient SHADIA Angel [id number] MH 04:33:00 04:40:00 [facility] 00 [facility] e [facility] 2019-01-21 2019-01-27 Outpatient Dav [facility] [id number] 23:33:00 23:40:00 Ed 00 2018-02-21 2018-02-20 [id number] 14:48:00 13:18:00 [facility] Results Test Description Test Time Test Comments Results Result Comments Source RPR Qualitative 2020-03-05 16:42:24 Test Item Value Reference Range Interpretation Comme nts RPR Qual (test code = RPR Qual) Non-Reactive Non-Reactive Reactive Control (test code = Reactive Control) Reactive Weak Reactive Control (test code = Weak Reactive Weak Reactive Control) Non-Reactive Control (test code = Non-Reactive Non-Reactive Control) Lot # (test code = Lot #) [id number] N Expiration Dt (test code = Expiration Dt) 10-24-2020 N Thyroid Stimulating Ffdgabn2230-49-39 08:35:16 Test Item Value Reference Range Interpretation Comments TSH (test code = TSH) 1.170 mIU/mL 0.270-4.200 Lipid [id number] 08:21:19 Test Item Value Reference Range Interpretation Comments Cholesterol Total 254 mg/dL 0-200 H RISK OF HE ART (test code = DISEASEPublishe d by Cholesterol Total) [employer] Wil [place]te Optimal Borderl ine Increased RiskC HOL <200 200-239 >2 40TRIG <150 150-199 >2 00HDL Male >60 <40H DL Female >60 <5 0LDL <100 130-159 >1 60LDL Near optimal is 100-129 Triglycerides (test 387 mg/dL 9-200 H code = Triglycerides) HDL (test code = HDL) 69 mg/dL 50-60 H LDL (test code = LDL) 108 mg/dL 0-130 The eq uation being used in this calcula tion is LDL = (Chol - H DL) - (Trig / 5) VLDL (test code = 77 mg/dL 5-40 H The equati on being used VLDL) in this calcula tion is VLDL = Trig / 5 Chol/HDL (test code = 3.7 ratio 0.0-4.4 Chol/HDL) LDL/HDL Ratio (test 2 N The equa tion being used code = LDL/HDL Ratio) in thi s calculation is LDL/HDL Ratio=L DL Calc/HDL Chol [id number] 08:24:008.6MSt[facility] HospitalIvarbqhfvVTIPTVFDFWEI6260-66-91 08:24:55120 NaidsxttqDQXGESUCNVAF6425-71-68 08:24:0027 PrshujxzuCTPBPRPDGYTE4296-95-98 08:24:29186MQNorthBay Medical CenterOikeiggnaEKPTYQVUWKDM7984-43-74 08:24:003.[address] [place] [address] CYGNJGQTAFNN5380-44-87 08:24:000.70[facility] CenterZtqvyvoqcPUBLNZWKBUXG2633-35-75 08:24:00 8.4[facility] CenterXrtbofavdGMUWFAKCJWKW2241-66-78 08:24:63736AE SouthwestELECTROLYTES 2019-01-26 08:24:0086[facility] CenterVofotnlmeZRSCQUXRKQMX9821-56-38 08:24:006[facility] USPTPSNMHL1813-04-40 08:24:0011.6MSt. [facility] HospitalJhrnwvqkbPHKZOSPWLY2800-86-23 08:24:003.78[facility] CenterTmodbpphdIEFILMHOZG8451-53-01 08:24:[address]3MSt[address] [facility]'S HospitalOlnykswesIZNWKSPYBV1246-55-06 08:24:0034.0[facility] CenterZgfcuuucoFUJQYXRHLB6505-35-42 08:24:006.[facility] SouthwestHEMATOLOGY 2019-01-26 08:24:00 Test Item Value Reference Range Interpretation Comments MCH (test code = MCH) 30.7 pg 27.0-31.0 JtfkunmzcCTCMVPOEHX2347-58-11 08:24:0090.3M WasvvvqdlWFEZBFOUWJ7742-28-41 08:24:[address] [place], [place] [address]CyzzchzirRYQBNJKSKQ0605-77-99 08:24:68118MCNorthBay Medical CenterHEMATOLOGY 2019-01-26 08:24:007.5[facility] CenterCHEM LTJHR4138-64-82 09:14:17609WQ[facility] CHEM BAFAL3172-58-79 09:14:008.5MH [facility]CHEM YJXQL7431-52-63 09:14:0013.3MH SouthwestCHEM KQHWZ9593-89-65 09:14:0024MH SouthwestCHEM OVIKE0931-25-98 09:14:45305WR SouthwestCHEM PHNND4037-21-77 09:14:0081MH SouthwestCHEM PANEL 2019-01-25 09:14:002MH SouthwestCHEM GLFPK8093-42-67 09:14:003.3MH [facility]CHEM AWQYS9825-25-38 09:14:000.60MH SouthwestCHEM ZQRSQ6042-57-85 09:14:56306FE SouthwestMOLECULAR AWKUFNTHXJ3899-86-67 16:22:00Negative (01/23/19 11:22 AM) [facility] UCGOD8987-67-87 15:42:002.76MH [facility]CHEM KKUET3023-86-75 12:32:000.9 [facility] IFRSL3585-33-99 10:50:002.0MH SouthwestCHEM PANEL 2019-01-23 10:50:71635CO SouthwestCHEM GWNSZ6781-34-34 10:50:0023[facility] CHE[facility] CRZEG4924-33-26 10:50:34850MV [facility]CHE[facility] QKTPS0114-11-86 10:50:003.1[facility] DAGBU2714-89-47 10:50:60035YQ [facility] JBFOO1689-10-00 10:50:005MH [facility]CHE[facility] HSTGQ5601-22-92 10:50:000.50MH SouthwestCHEM PANEL 2019-01-23 10:50:007.8MH [facility]CHEM ENTUD2677-66-23 10:50:0083[facility] CHE[facility] CMVPB8737-50-46 10:50:0010.1MH JdecnczohAIHLUFZAVU0210-92-14 10:50:000.2MH PflopuosxYIMQIBDHNZ1941-97-45 10:50:000.8MH OhlvafxorMDPLOOCFGH0451-04-15 10:50:005.5MH QgcoavqdtSFDOVIOPLI2158-55-83 10:50:002.2MH SouthwestHEMATOLOGY 2019-01-23 10:50:000.1MH SpnylqcrjHRGTAVJLNV4531-27-82 10:50:0063.6[facility] ZQEROHQOBW4463-60-05 10:50:008.9MH FjetcnaevJVGLOXGNCP9685-69-56 10:50:002.3MH KlhsokpehYQGMYAGRYX7217-75-78 10:50:00Normal (01/23/19 5:50 AM)[facility] PQVIFGSFGG1715-50-25 10:50:00Normal (01/23/19 5:50 AM)[facility] CenterHE[facility]Y 2019-01-23 10:50:0025.1MSt. Joseph'S HospitalOkvcqowjfUYFXZBJGZU6005-36-19 10:50:0013.1M[facility] BRREAEPRNK7478-38-49 10:50:95038VKNorthBay Medical CenterFiqtufrxcZHXCTSRRLH6364-58-81 10:50:007.7[facility] CenterNkrzwhvknEURSBDIAHB0985-13-66 10:50:008.6MSt[address] Joseph'S HospitalYtfaivpymLEMZERZIKH8485-42-79 10:50:0010.0[facility] CenterTgjrboubhAUFIDGOXRJ0079-64-50 10:50:0034.6MSt. [facility] HospitalHEMATOLOGY 2019-01-23 10:50:0028.7[facility] CenterGbekcxwwaAZDPCRFGBW3597-49-53 10:50:0087.8[facility] DSNPQQXRRE6899-29-04 10:50:00 Test Item Value Reference Range Interpretation Comments MCH (test code = MCH) 30.4 pg 27.0-31.0 [facility] CenterUuywqvyuxBQQGWKQFYK7045-74-72 10:50:003.27[facility] CenterCHEM RVZIW9367-32-89 11:32:002.4[facility] CenterCHE[facility] HBWRJ1898-96-29 09:04:003.0[facility] AND WRPFS2004-00-89 07:14:00 Test Item Value Reference Range Interpretation Comments UA Spec Grav (test code = UA Spec 1.014 1 Grav) [facility] AND [id number] 07:14:00 Test Item Value Reference Range Interpretation Comments UA pH (test code = UA pH) 6.0 1 5.0-8.0 [facility] AND [id number] 07:14:00Negative (01/22/19 2:14 AM) [facility] MAEEW2136-64-89 07:14:00Negative *NA*(01/22/19 2:14 AM)[facility] VLQMP0003-69-59 07:14:00Negative *NA*(01/22/19 2:14 AM)[facility] OSDZS6300-74-43 07:14:00Negative *NA*(01/22/19 2:14 AM)[facility]UR[facility] AND [id number] 07:14:00Negative (01/22/19 2:14 AM)[facility] POKIR6829-90-26 07:14:00Negative (01/22/19 2:14 AM)[facility] FJQDS7973-37-54 07:14:00Negative (01/22/19 2:14 AM)[facility] MEHCD2554-69-42 07:14:00<1MH [facility]UR[facility] AND STOOL 2019-01-22 07:14:0025 [facility] AND ZXNKG8910-86-64 07:14:002MH [facility] URINE AND ZSTQX6727-72-88 07:14:00Light Yellow *NA*(01/22/19 2:14 AM)[facility] URINE AND TSFYM2101-34-59 07:14:00Clear (01/22/19 2:14 AM)[facility] CenterMETAL 2019-01-22 05:16:000.90[facility] CenterBLOOD BANK ZPZVYVP7107-14-47 05:01:00Negative (01/22/19 12:01 AM)[facility] CenterCARDIAC JZYEEPG1297-23-58 05:01:00<0.02MH [facility]ARD[facility] FHLACPM7634-83-35 05:01:0049[facility] CenterCHEM XQHUV5552-00-77 05:01:000.6MH [facility] JoseCHE[facility] TVCNA6527-92-61 05:01:96624EN SouthwestCHEM PANEL 2019-01-22 05:01:004.0 [facility]CHE[facility] UQLRZ0688-13-61 05:01:0017[facility] CHEM HOZYJ2018-55-39 05:01:0025[facility] CenterCHEM AGRRZ9224-15-93 05:01:008.1MH [facility]CHE[facility] EQVER5001-71-49 05:01:00 Test Item Value Reference Range Interpretation Comments B/C Ratio (test code = B/C Ratio) 20 1 6-25 [facility]CHE[facility] FIHTO6115-30-70 05:01:00 Test Item Value Reference Range Interpretation Comments A/G Ratio (test code = A/G Ratio) 1.0 1 0.7-1.6 [facility] OZVXX3248-13-37 05:01:004.1MH [facility] OXPYF7478-36-72 05:01:006.90[facility] CenterOtxyvtapgAEDITAGSPNZYU8500-50-71 05:01:00Negative *NA*(01/22/19 12:01 AM)[facility] CenterLtpdyjzulSBVSOQBNZP9079-47-35 05:01:000.1MH SouthwestHEMATOLOGY 2019-01-22 05:01:000.7[facility] CenterTzvfgbfglVJRBHWPAFQ5764-77-54 05:01:000.0[facility] XXKSHQIVDL8822-37-67 05:01:000.0[facility] CenterFohvxphhgQCKDJQMTYA9727-21-69 05:01:000.9[facility] CenterDmmgmulvqNQDDCHOSNB5362-75-53 05:01:008.6MSt[address] Joseph'S HospitalFbuhveurmEEFMKBWDBY9506-10-15 05:01:000.6MSt[address] [facility]'S HospitalQzanqbwhrLUDZCFVAER6738-46-18 05:01:0086.5[facility] CenterHEMATOLOGY 2019-01-22 05:01:005.7[facility] CenterTbouejsjiQLRHEGGPRU3628-26-86 05:01:006.9[facility] WPIRRFADGY2121-08-53 05:01:009.9[facility] CenterCzewjroekAPUNSRXNLB1331-88-84 05:01:0032.8[facility] CenterAqcgmujywUKQMULOOKY5776-96-70 05:01:0013.6MSt[address] [facility]'S HospitalXtlixuliaRWKUILTAMT1830-84-88 05:01:28006JINorthBay Medical CenterAqzuhhfroLCUUERAZCT8397-18-78 05:01:007.3MSt[facility] HospitalHEMATOLOGY 2019-01-22 05:01:0014.0[facility] CenterKstuutxttBHWZFFDHJF0198-44-02 05:01:004.85[facility] IZIPQWEQQO0571-38-24 05:01:0042.7[facility] CenterZwonoadbvGOTDMDXKHE8921-17-52 05:01:00 Test Item Value Reference Range Interpretation Comments MCH (test code = MCH) 29.0 pg 27.0-31.0 [facility] CenterMijrukvxhYTFQLAMBYB5649-17-36 05:01:00[address].2MSt[facility]S HospitalUutdkhezvJKJRNSGNGW1275-25-16 05:01:00 Test Item Value Reference Range Interpretation Comments INR (test code = INR) 0.96 1 0.85-1.17 [facility] CenterWwjrtqhbrKXPTFCYVXP0748-06-01 05:01:00 Test Item Value Reference Range Interpretation Comments PT (test code = PT) 12.6 s 12.0-14.7 [facility] CenterEzzxkktusIENAWIEXQW8478-79-91 05:01:00 Test Item Value Reference Range Interpretation Comments PTT (test code = PTT) 25.9 s 22.9-35.8 [facility] CenterXxiyevxlhDPM5E0530-25-14 14:36:00 Test Item Value Reference Range Interpretation Comments Amphetamine (test POSITIVE Negative A For diagno stic code = AMPH) purposes only, positive result s should always b e assessedin conjunctionwith the patient's medic al history,clinica l examination and otherfindings.T o fulfill legal requirements, a more specific altern ate chemical method must be used inorder to obtain a Confirmed wil lytical result. GC/MS i s the preferred confi rmatory method. Barbiturates (test Negative Negative N code = AKIKO) Benzodiazepine (test Negative Negative N code = FINA) Cocaine (test code = Negative Negative N COCA) Methadone (test code Negative Negative N = MTHD) Opiates (test code = Negative Negative N OPIA) PCP (test code = PCP) Negative Negative N Propoxyphene (test Negative Negative N code = PROPOX) THC (test code = THC) Negative Negative N Alcohol, Urine (test <0.01 g/dL 0.00-0.01 N code = ETOHU) Comprehensive Metabolic [id number] 14:36:00 Test Item Value Reference Range Interpretation Comments Sodium (test code = 139 mmol/L 135-145 N NA) Potassium (test 4.6 mmol/L 3.5-5.1 N code = K) Chloride (test code 100 mmol/L 98-105 N = CL) Carbon Dioxide 24 mmol/L 22-29 N (test code = CO2) Glucose (test code 94 mg/dL 70-115 N = GLU) Blood Urea Nitrogen 18 mg/dL 6-20 N (test code = BUN) Creatinine (test 0.6 mg/dL 0.5-0.9 N code = CREAT) Calcium (test code 9.4 mg/dL 8.3-10.5 N = CA) Prot Total (test 7.2 g/dL 6.4-8.3 N code = TP) Albumin (test code 4.6 g/dL 3.5-5.2 N = ALB) A/G Ratio (test 1.8 Ratio code = AGRATIO) Globulin (test code 2.6 2.9-3.1 L = GLOB) Bili Total (test 0.2 mg/dL 0.1-0.9 N code = TBIL) Alk Phos (test code 80 U/L 35-104 N = APHOS) AST (test code = 16 U/L 1-32 N AST) ALT (test code = 13 U/L 1-33 N ALT) BUN/Creatinine 30.0 Ratio (test code = BCRATIO) Anion Gap (test 15 mmol/L 7-16 N code = AGAP) Estimated GFR (test >60 eGFR (es timated code = GFR) mL/min/1.73m2 Glomerular Jim tration Rate) is an est imated value,calculate d from the patient's s edwin creatinine usin g the MDRD equation.I t is NOT the patient 's actual GFR. The eGFR provides a more clinicallyusefu l measure of kidn ey disease than se rum creatinine alone.This calculation gala es sex and race into account, if the informationis provided. If th e race is not provided , and the patient isAfrican-Ameri can, multiply by 1.2 12. If sex is not prov ided, and thepatient is female, multipl y by 0.742. Results for patients <18 ye ars ofage have not been validated by th e MDRD study and ignacioul d be interpretedwith caution.eGFR Re sult Interpretation: eGFR > or = 60 is in t he Normal RangeeGF R < 60 may mean kidney diseaseeGFR < 1 5 may mean kidney failureRange s recommended by the National Kidney Foundation,http ://nkd ep.nih.gov Urinalysis [id number] 14:32:00 Test Item Value Reference Range Interpretation Comments Color (test code = COLOR) Yellow Yellow,Straw,Pl N yellow Clarity (test code = Clear Clear N CLAR) Specific [place] (test 1.024 1.001-1.035 N code = SPGR) pH (test code = PH) 7.0 5.0-9.0 N Ketone (test code = KET) Negative mg/dL Negative N Glucose (test code = Negative mg/dL Negative N GLUCUR) Protein (test code = Negative mg/dL Negative N PROT) Bilirubin (test code = Negative mg/dL Negative N BILI) Occult Blood (test code = Negative Negative N UDOB) Urobilinogen (test code = 0.2 mg/dL 0.2-1.0 N UROB) Nitrite (test code = NIT) Negative Negative N Leuk Esterase (test code Small Negative A = LEUK) Micros Exam (test code = Indicated MEXAM) Epithelial Cells (test 3-5 /LPF 0-30 A code = EPI) WBC, Urine (test code = 0-2 /HPF 0-5 A UWBC) RBC, Urine (test code = None Seen /HPF 0-5 A URBC) Bacteria (test code = Few /HPF BACT) CBC with [id number] 14:21:00 Test Item Value Reference Range Interpretation Comments WBC (test code = WBC) 8.8 K/cumm 4.4-10.5 N RBC (test code = RBC) 4.65 M/cumm 3.75-5.20 N Hemoglobin (test code = HGB) 12.8 gm/dL 12.2-14.8 N Hematocrit (test code = HCT) 40.5 % 36.5-44.4 N MCV (test code = MCV) 87.1 fL 80-100 N MCH (test code = MCH) 27.6 pg 27.0-32.5 N MCHC (test code = MCHC) 31.7 g/dL 32.0-37.5 L RDW (test code = RDW) 13.3 % 11.5-14.5 N Platelet Count (test code = 464 K/cumm 140-440 H PLTCT) MPV (test code = MPV) 9.7 fL Diff Method (test code = DIFFM) Auto Neutrophil (test code = NEUT) 57.2 % 36-70 N Lymphocyte (test code = LYMPH) 33.9 % 12-44 N Monocyte (test code = MONO) 6.1 % 0-11 N Eosinophil (test code = EOS) 2.2 % 0-7 N Basophil (test code = BASO) 0.6 % 0-2 N Neutro Abs (test code = ANEUT) 5.0 K/cumm 1.6-7.4 N Lymph Abs (test code = ALYMPH) 3.0 K/cumm 0.5-4.6 N Hickman Abs (test code = AMONO) 0.5 K/cumm 0.0-1.2 N Eos Abs (test code = AEOS) 0.19 K/cumm 0.00-0.74 N Baso Abs (test code = ABASO) 0.1 K/cumm 0.00-0.21 N
[2020-03-17 13:07] LABS: Barbiturates NEGATIVE (NEGATIVE); Benzodiazepines NEGATIVE (NEGATIVE); Cocaine NEGATIVE (NEGATIVE); METHAMPHETAM NEGATIVE (NEGATIVE); Methadone NEGATIVE (NEGATIVE); Opiates NEGATIVE (NEGATIVE); Phencyclidine NEGATIVE (NEGATIVE); THC Cannibis NEGATIVE (NEGATIVE)
[2020-03-17 13:08] LABS: Absolute Lymphocytes (CBC) 2.4 K/uL (0.7-4.9); Basophils % 0.5 % (0-1.3); Hematocrit 36.9 % (36.0-45.0); Lymphocytes % 26.1 % (15.3-44.8); MPV 7.5 fL (7.6-11.3); RBC Red Blood Cell Count 4.26 M/uL (3.86-4.86)
[2020-03-17 13:09] LABS: Urine Blood NEGATIVE (NEG); Urine Glucose NEGATIVE (NEG); Urine Protein NEGATIVE (NEG); Urine pH 6.5 (5.0-7.0)
[2020-03-17 13:14] LABS: Protime INR 0.95
[2020-03-17 13:29] LABS: ALT/SGPT 20 U/L (12-78); AST/SGOT 19 U/L (15-37); Albumin 3.6 g/dL (3.4-5.0); Alkaline Phosphatase 86 U/L (45-117); BUN Blood Urea Nitrogen 9 mg/dL (7-18); Bicarbonate 25 mmol/L (21-32); Bilirubin Direct < 0.1 mg/dL (0-0.2); Bilirubin Total 0.2 mg/dL (0.2-1.0); Glucose Level 123 mg/dL (74-106); Potassium 3.9 mmol/L (3.5-5.1); Protein, Total 7.4 g/dL (6.4-8.2); Sodium Level 139 mmol/L (136-145)
--- NOTE | 2020-03-17 15:00 | EDPHYS ---
Physician Documentation [facility] Name: Tiffany Quinn Age: 49 yrs Sex: Female : 1970 Arrival Date: 03/17/2020 Time: 12:29 Bed 8 Private MD: ED Physician David Brown HPI: 03/17 12:44 This 49 yrs old Female presents to ER via EMS with complaints of Psych mh7 Problem. 12:44 The patient presents to the emergency department with anxiety, over unknown mh7 circumstances, racing thoughts. Onset: The symptoms/episode began/occurred this morning. Past psychiatric history: Prior diagnosis: schizophrenia, Psychiatric medications include: Primary psychiatric physician: Dr. STAS Moreau, the patient has not had a prior suicide gesture, the patient has a previous inpatient psychiatric history, at [facility], the patient's last psychiatric treatment was 2 week(s) ago. Associated signs and symptoms: Pertinent negatives: abdominal pain, chest pain, chills, delusions, depression, fever, hallucinations, headache, homicidal ideation, nausea, night sweats, palpitations, paranoia, shortness of breath, substance abuse, suicide ideation, tremor, vomiting. Historical: - Allergies: 12:31 Stadol; hb 12:31 Toradol; hb - Home Meds: 12:31 Latuda oral oral [Active]; Prozac Oral [Active]; Zyprexa 5 mg Oral tab nightly hb [Active]; Strattera oral oral [Active]; Klonopin Oral [Active]; - PMHx: 12:31 ADD/ADHD; Bipolar disorder; Hernia; Migraines; PSYCH PROBLEMS; Schizophrenia; unsure if hb she is; Seizures; - PSHx: 12:31 Hernia repair; Cholecystectomy; breast implants; hb - Immunization history:: Adult Immunizations up to date. - Social history:: Smoking status: Patient denies any tobacco usage or history of. ROS: 12:44 Constitutional: Negative for fever, chills, and weight loss, Eyes: Negative for injury, mh7 pain, redness, and discharge, ENT: Negative for injury, pain, and discharge, Neck: Negative for injury, pain, and swelling, Cardiovascular: Negative for chest pain, palpitations, and edema, Respiratory: Negative for shortness of breath, cough, wheezing, and pleuritic chest pain, Abdomen/GI: Negative for abdominal pain, nausea, vomiting, diarrhea, and constipation, Back: Negative for injury and pain, : Negative for injury, bleeding, discharge, and swelling, MS/Extremity: Negative for injury and deformity, Skin: Negative for injury, rash, and discoloration, Neuro: Negative for headache, weakness, numbness, tingling, and seizure, Allergy/Immunology: Negative for hives, rash, and allergies, Endocrine: Negative for neck swelling, polydipsia, polyuria, polyphagia, and marked weight changes, Hematologic/Lymphatic: Negative for swollen nodes, abnormal bleeding, and unusual bruising. Exam: 12:44 Constitutional: This is a well developed, well nourished patient who is awake, alert, mh7 and in no acute distress. Head/Face: Normocephalic, atraumatic. Eyes: Pupils equal round and reactive to light, extra-ocular motions intact. Lids and lashes normal. Conjunctiva and sclera are non-icteric and not injected. Cornea within normal limits. Periorbital areas with no swelling, redness, or edema. Neck: Trachea midline, no thyromegaly or masses palpated, and no cervical lymphadenopathy. Supple, full range of motion without nuchal rigidity, or vertebral point tenderness. No Meningismus. Chest/axilla: Normal chest wall appearance and motion. Nontender with no deformity. No lesions are appreciated. Cardiovascular: Regular rate and rhythm with a normal S1 and S2. No gallops, murmurs, or rubs. Normal PMI, no JVD. No pulse deficits. Respiratory: Lungs have equal breath sounds bilaterally, clear to auscultation and percussion. No rales, rhonchi or wheezes noted. No increased work of breathing, no retractions or nasal flaring. Abdomen/GI: Soft, non-tender, with normal bowel sounds. No distension or tympany. No guarding or rebound. No evidence of tenderness throughout. Back: No spinal tenderness. No costovertebral tenderness. Full range of motion. Skin: Warm, dry with normal turgor. Normal color with no rashes, no lesions, and no evidence of cellulitis. MS/ Extremity: Pulses equal, no cyanosis. Neurovascular intact. Full, normal range of motion. Neuro: Awake and alert, GCS 15, oriented to person, place, time, and situation. Cranial nerves II-XII grossly intact. Motor strength 5/5 in all extremities. Sensory grossly intact. Cerebellar exam normal. Normal gait. 12:44 Psych: Behavior/mood is anxious, Affect is animated, Oriented to person, place, time, Patient has no thoughts/intents to harm self or others. Judgement / Insight is normal. Memory is normal. Delusions/hallucinations are not present. Vital Signs: 12:31 BP 124 / 78; Pulse 88; Resp 16; Temp 97.9; Pulse Ox 100% ; Pain 0/10; hb 13:12 BP 122 / 83; Pulse 91; Resp 16; Pulse Ox 96% ; sv 13:59 BP 121 / 85; Pulse 87; Resp 16; Pulse Ox 97% ; sv 14:55 BP 119 / 86; Pulse 89; Resp 16; Pulse Ox 99% ; sv MDM: 12:41 Patient medically screened. mh7 14:57 Differential diagnosis: drug withdrawal. acute psychotic break, depression, psychosis mh7 secondary to non-compliance, Anxiety. Data reviewed: vital signs, nurses notes, lab test result(s), CBC, drug level(s), electrolytes, urinalysis. Data interpreted: Pulse oximetry: on room air is 99 %. Interpretation: normal. Counseling: I had a detailed discussion with the patient and/or guardian regarding: the historical points, exam findings, and any diagnostic results supporting the discharge/admit diagnosis, lab results, the need for outpatient follow up, to return to the emergency department if symptoms worsen or persist or if there are any questions or concerns that arise at home. 03/17 12:44 Order name: Acetaminophen; Complete Time: 13:54 03/17 12:44 Order name: Basic Metabolic Panel; Complete Time: 13:54 03/17 12:44 Order name: CBC with Diff; Complete Time: 13:54 03/17 12:44 Order name: ETOH Level; Complete Time: 13:54 03/17 12:44 Order name: Hepatic Function; Complete Time: 13:54 03/17 12:44 Order name: PT-INR; Complete Time: 13:54 03/17 12:44 Order name: Ptt, Activated; Complete Time: 13:54 03/17 12:44 Order name: Salicylate; Complete Time: 14:57 7 03/17 12:44 Order name: Urine Drug Screen; Complete Time: 13:54 7 03/17 12:44 Order name: EKG; Complete Time: 12:45 [facility] 03/17 12:44 Order name: EKG - Nurse/Tech; Complete Time: 13:02 7 03/17 12:44 Order name: IV Saline Lock; Complete Time: 13:02 [facility] 03/17 12:55 Order name: Urine Dipstick--Ancillary (enter results); Complete Time: 13:54 [facility] 03/17 12:55 Order name: Urine --Ancillary (enter results); Complete Time: 13:54 [facility] 03/17 12:44 Order name: Labs collected and sent; Complete Time: 13:02 [facility] 03/17 12:44 Order name: Urine Dipstick-Ancillary (obtain specimen); Complete Time: 12:53 [facility] 03/17 12:44 Order name: Urine Test (obtain specimen); Complete Time: 12:53 [facility] Administered Medications: No medications were administered Disposition: 03/17/20 14:59 Discharged to Home. Impression: Anxiety disorder, unspecified. - Condition is Stable. - Discharge Instructions: Generalized Anxiety Disorder. - Medication Reconciliation Form, Thank You Letter, Antibiotic Education, Prescription Opioid Use form. - Follow up: Private Physician; When: 1 - 2 days; Reason: Worsening of condition, Re-evaluation by your physician. Follow up: Chilo Smith MD; When: 1 - 2 days; Reason: Worsening of condition, Re-evaluation by your physician. - Problem is an ongoing problem. - Symptoms have improved. Signatures: Dispatcher [facility] Care CenterJulissa Rhodes RN RN sv Gabby Sawyer RN RN hb Holmes, Maurice, MD MD mh7 Corrections: (The following items were deleted from the chart) 15:15 14:59 03/17/2020 14:59 Discharged to Home. Impression: Anxiety disorder, unspecified. sv Condition is Stable. Forms are Medication Reconciliation Form, Thank You Letter, Antibiotic Education, Prescription Opioid Use. Follow up: Private Physician; When: 1 - 2 days; Reason: Worsening of condition, Re-evaluation by your physician. Follow up: Chilo Smith; When: 1 - 2 days; Reason: Worsening of condition, Re-evaluation by your physician. Problem is an ongoing problem. Symptoms have improved. mh7
--- NOTE | 2020-03-17 15:00 | ER ---
Nurse's Notes [facility] Name: Tiffany Quinn Age: 49 yrs Sex: Female : 1970 Arrival Date: 03/17/2020 Time: 12:29 Bed 8 Private MD: Diagnosis: Anxiety disorder, unspecified Presentation: 03/17 12:31 Chief complaint: EMS states: Recently discharged from [facility], had hb total medication overhaul, reports feeling anxious and "just not right." Denies HI/SI/hallucinations. Coronavirus screen: Proceed with normal triage. Ebola Screen: No symptoms or risks identified at this time. Initial Sepsis Screen: Does the patient meet any 2 criteria? No. Patient's initial sepsis screen is negative. Does the patient have a suspected source of infection? No. Patient's initial sepsis screen is negative. Risk Assessment: Do you want to hurt yourself or someone else? Patient reports no desire to harm self or others. Onset of symptoms was March 17, 2020. 12:31 Method Of Arrival: EMS: [facility] hb 12:31 Acuity: MANUEL 3 hb Historical: - Allergies: 12:31 Stadol; hb 12:31 Toradol; hb - Home Meds: 12:31 Latuda oral oral [Active]; Prozac Oral [Active]; Zyprexa 5 mg Oral tab nightly hb [Active]; Strattera oral oral [Active]; Klonopin Oral [Active]; - PMHx: 12:31 ADD/ADHD; Bipolar disorder; Hernia; Migraines; PSYCH PROBLEMS; Schizophrenia; unsure if hb she is; Seizures; - PSHx: 12:31 Hernia repair; Cholecystectomy; breast implants; hb - Immunization history:: Adult Immunizations up to date. - Social history:: Smoking status: Patient denies any tobacco usage or history of. Screenin:00 Abuse screen: Denies threats or abuse. Denies injuries from another. Nutritional sv screening: No deficits noted. Tuberculosis screening: No symptoms or risk factors identified. Fall Risk None identified. Assessment: 14:30 Reassessment: Crystal from [facility] on the iPad to facetime the pt. sv Vital Signs: 12:31 BP 124 / 78; Pulse 88; Resp 16; Temp 97.9; Pulse Ox 100% ; Pain 0/10; hb 13:12 BP 122 / 83; Pulse 91; Resp 16; Pulse Ox 96% ; sv 13:59 BP 121 / 85; Pulse 87; Resp 16; Pulse Ox 97% ; sv 14:55 BP 119 / 86; Pulse 89; Resp 16; Pulse Ox 99% ; sv ED Course: 12:29 Patient arrived in ED. hb 12:30 David Brown MD is Attending Physician. [facility] 12:31 Arm band placed on. hb 12:33 Julissa Marte RN is Primary Nurse. sv 12:36 Triage completed. hb 12:58 Initial lab(s) drawn, by or, sent to lab. Inserted saline lock: 22 gauge in left hand, 3 using aseptic technique. Blood collected. 13:00 Patient has correct armband on for positive identification. Bed in low position. Call sv light in reach. Pulse ox on. NIBP on. 13:20 EKG done, by ED staff, reviewed by David Brown MD. [facility] 14:59 Chilo Smith MD is Referral Physician. [facility] 15:12 No provider procedures requiring assistance completed. IV discontinued, intact, sv bleeding controlled, No redness/swelling at site. Pressure dressing applied. Administered Medications: No medications were administered Outcome: 14:59 Discharge ordered by . [facility] 15:12 Discharged to home ambulatory. sv 15:12 Condition: stable 15:12 Discharge instructions given to patient, Instructed on discharge instructions, follow up and referral plans. Pt stated that she has an appt with [facility] already Demonstrated understanding of instructions, follow-up care. 15:15 Patient left the ED. sv Signatures: Julissa Marte RN RN Gabby Sawyer RN RN Marek, Allyson [facility] David Brown MD MD [facility]
[2020-03-17 15:33] VITALS: TEMP 97.9
[2020-03-17 15:37] VITALS: BP 119/86; O2SAT 99
--- NOTE | 2020-03-18 08:54 | EKG ---
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
== END 2020-03-17 15:15 | disposition home or self-care (01) ==
LOC: ER 12:20
DX: F41.9 Anxiety disorder, unspecified (principal); F20.9 Schizophrenia, unspecified; R56.9 Unspecified convulsions
CPT/HCPCS: 36415; 80048; 80076; 80307; 80320; 80329; 81003; 81025; 85025; 85610; 85730; 93005; 99284

== ENCOUNTER 2020-03-24 07:29 | Emergency (ER) | payer OTHER ==
--- OUTSIDE RECORDS SUMMARY | 2020-03-24 07:33 | XMS REPORT | Continuity of Care Document ---
:1970 Author Organization [facility] Care Team Providers Name Role Phone [facility] Unavailable Un available Problems Problem Status Onset [...] tab, Active hydrochloride PO, Q6H, PRN 2018 [facility] 50 MG Oral Pain Score Tablet 1-3, X 5 day, # 20 tab, 0 Refill(s) Metronidazole 500 mg = 1 Active 500 MG Oral tab, PO, 2019 [facility] Tablet [id number], X 4 day, # 12 tab, 0 Refill(s) ciprofloxacin 500 mg = 1 Active 500 mg oral tab, PO, 2019 [facility] tablet [id number], X 4 day, # 8 tab, 0 Refill(s) Potassium Notes: (Same Inactive Chloride as: K-Dur 20) 2018 [facility] "Do Not Crush" Give with food and full glass of water For patients unable to swallow tablet, dissolve in one half glass of water. Allow about 2 minutes for the tablets to disintegrate. Stir before giving to prepare slurry and administer. Please exclude Patient’ s with feeding tube less than 14 [place] (Dobhoff, J-tube etc) and pediatric and patients. Strattera 0.5 mg/kg, No Longer Route: PO, Active 2018 [facility] QAM, Dosing Weight 75, kg, Start date: 01/24/19 9:00:00 CDT, Duration: 30 day, Stop date: 02/22/19 9:00:00 CDT lithium Notes: Do not No Longer crush or chew. Active 2018 [facility] (Same as: Eskalith-CR) Risperdal Notes: (Same No Longer as: Risperdal) Active 2018 [facility] Strattera 1 mg, Route: No Longer PO, QPM, Active 2018 [facility] Dosing Weight 75, kg, Start date: 01/23/19 17:00:00 CDT, Duration: 30 day, Stop date: 02/21/19 17:00:00 CDT normal saline 1,000 mL, No Longer 0.9% IV 1,000 Rate: 100 [facility], Infuse over: 10 hr, Route: IV, Dosing Weight 75 kg, Total Volume: 1,000, Start date: 01/23/19 14:18:00 CDT, Duration: 30 day, Stop date: 02/22/19 14:17:00 CDT, 1.84, m2 Clonazepam Notes: (Same No Longer As: KlonoPIN) Active 2018 [facility] Flagyl Notes: (Same No Longer as: Flagyl) Active 2018 [facility] Take with food/ avoid alcohol Cipro Notes: May No Longer interfere Active 2018 [facility] w/enteral feedings - Take 1 hr before or 2 hrs after antacids, dairy pdt & minerals. On empty stomach. tramadol 50 mg = 1 tab, No Longer hydrochloride PO, Q6H, PRN Active 2018 [facility] 50 MG Oral Pain Score Tablet 1-3, 0 Refill(s) potassium 40 mEq, PO, Active chloride 20 mEq ONCE, 0 2018 [facility] oral tablet, Refill(s) extended release Metronidazole 500 mg, PO, No Longer 500 MG Oral [id number], 0 Active 2018 [facility] Tablet [Flagyl] Refill(s) Ciprofloxacin 500 mg, PO, No Longer 500 MG Oral [id number], 0 Active 2018 [facility] Tablet [Cipro] Refill(s) Potassium Notes: (Same Inactive Chloride as: K-Dur 20) 2019 [facility] "Do Not Crush" Give with food and full glass of water For patients unable to swallow tablet, dissolve in one half glass of water. Allow about 2 minutes for the tablets to disintegrate. Stir before giving to prepare slurry and administer. Please exclude Patient’ s with feeding tube less than 14 [place] (Dobhoff, J-tube etc) and pediatric and patients. Pepcid Notes: (Same No Longer as: Pepcid) Active 2018 [facility] Strattera 0.5 mg/kg, PO, Active QAM, 0 2018 [facility] Refill(s) lithium 450 mg 450 mg = 1 Active oral tablet, tab, PO, 2018 [facility] extended Bedtime, # 60 release tab, 0 Refill(s) clonazePAM 0.5 0.5 mg = 1 Active mg oral tablet tab, PO, TID, 2018 [facility] # 90 tab, 0 Refill(s) Risperidone 0.5 0.5 mg = 1 Active MG Oral Tablet tab, PO, BID, 2018 [facility] [Risperdal] 0 Refill(s) Zosyn Notes: (Same No Longer as: Zosyn) Active 2018 [facility] Dosing based on Piperacillin component MEDICATION WASTE Product Size: 3375 mg Product Wasted: ___ mg Tramadol Notes: Not to No Longer exceed Active 2018 [facility] 400mg/day. (Same As: Ultram) normal saline 1,000 mL, No Longer 0.9% IV 1,000 Rate: 150 Active 2018 [facility] t mL ml/hr, Infuse over: 6.7 hr, Route: IV, Dosing Weight 75.994 kg, Total Volume: 1,000, Start date: 01/22/19 4:48:00 CDT, Duration: 30 day, Stop date: 02/21/19 4:47:00 CDT Ondansetron Notes: (Same No Longer as: Zofran) Active 2018 [facility] MEDICATION WASTE Product Size: 4 mg Product Wasted: ___ mg Glucagon 1 mg, Route: No Longer IM, Drug form: Active 2018 [facility] PDR/INJ, PRN, Dosing Weight 75.994, kg, PRN Blood Glucose Results, Start date: 01/22/19 4:47:00 CDT, Duration: 30 day, Stop date: 02/21/19 4:46:00 CDT Dextrose 50% 12.5 gm, 25 No Longer Syringe mL, Route: Active 2018 [facility] IVP, Drug Form: INJ, Dosing Weight 75.994, kg, PRN, PRN Blood Glucose Results, Start date: 01/22/19 4:47:00 CDT, Duration: 30 day, Stop date: 02/21/19 4:46:00 CDT Zofran Notes: (Same Inactive as: Zofran) 2018 [facility] MEDICATION WASTE Product Size: 4 mg Product Wasted: ___ mg NS (Bolus) IV 1,000 mL, Inactive 1,000 ml/hr, 2018 [facility] Infuse Over: 1 hr, Route: IV, 1,000, Drug form: INJ, ONCE, Priority: STAT, Dosing Weight 75.994 kg, Start date: 01/22/19 3:52:00 CDT, Stop date: 01/22/19 3:52:00 CDT Visipaque 320 Notes: (Same Inactive mg/mL as: 2019 [facility] injectable Visipaque). solution WASTE: F/P - Black; E - [employer] Zosyn Notes: (Same Inactive as: Zosyn) 2018 [facility] Dosing based on Piperacillin component MEDICATION WASTE Product Size: 3375 mg Product Wasted: ___ mg NS (Bolus) IV 1,000 mL, Inactive 1,000 ml/hr, 2018 [facility] Infuse Over: 1 hr, Route: IV, 1,000, Drug form: INJ, ONCE, Priority: STAT, Dosing Weight 75.994 kg, Start date: 01/22/19 0:44:00 CDT, Stop date: 01/22/19 0:44:00 CDT Zofran Notes: (Same No Longer as: Zofran) Active 2018 [facility] MEDICATION WASTE Product Size: 4 mg Product Wasted: ___ mg Saline Flush Notes: Same No Longer 0.9% as: BD Active 2018 [facility] Posiflush Sterile NS (Bolus) IV 1,000 mL, No Longer 1,000 ml/hr, Active 2018 [facility] Infuse Over: 1 hr, Route: [...] AGAP 8.6 10.0 - 01/26 ES 20.0 [facility] ELECTROLYT Chloride Lvl 107 95 - 109 01/26 [facility] ELECTROLYT CO2 27 24 - 32 01/26 [facility] ELECTROLYT Sodium Lvl 139 135 - 145 01/26 [facility] ELECTROLYT Potassium 3.6 3.5 - 5.1 01/26 [facility] Lv [facility] ELECTROLYT Creatinine 0.70 0.50 - 01/26 ES Lvl 1.40 [facility] ELECTROLYT Calcium Lvl 8.4 8.5 - 10.5 01/26 [facility] ELECTROLYT eGFR 103 01/26 Result Comment: The [facility] eGFR is calculated using the [...] Glucose Lvl 86 70 - 99 01/26 [facility] ELECTROLYT BUN 6 7 - 22 01/26 [facility] HEMATOLOGY Hgb 11.6 12.0 - 01/26 MH 16.0 [facility] HEMATOLOGY RBC 3.78 4.20 - 01/26 MH 5.40 /2018 [facility] HEMATOLOGY RDW 13.3 11.5 - 01/26 MH 14.5 [facility] HEMATOLOGY MCHC 34.0 32.0 - 01/26 MH 36.0 [facility] HEMATOLOGY WBC 6.3 3.7 - 10.4 01/26 [facility] HEMATOLOGY MCH 30.7 27.0 - 01/26 MH 31.0 [facility] HEMATOLOGY MCV 90.3 80.0 - 01/26 98.0 [facility] HEMATOLOGY Hct 34.2 36.0 - 01/26 MH 48.0 [facility] HEMATOLOGY Platelet 412 133 - 450 01/26 [facility] HEMATOLOGY MPV 7.5 7.4 - 10.4 01/26 [facility] CHEM PANEL eGFR 108 01/25 [facility] Comment: The [facility] eGFR is calculated using the [...] Calcium Lvl 8.5 8.5 - 10.5 01/25 [facility] CHEM PANEL AGAP 13.3 10.0 - 01/25 MH 20.0 [facility] CHEM PANEL CO2 24 24 - 32 01/25 [facility] CHEM PANEL Chloride Lvl 109 95 - 109 01/25 [facility] CHEM PANEL Glucose Lvl 81 70 - 99 01/25 [facility] CHEM PANEL BUN 2 7 - 22 01/25 [facility] CHEM PANEL Potassium 3.3 3.5 - 5.1 01/25 [facility] CHEM PANEL Creatinine 0.60 0.50 - 01/25 MH Lvl 1.40 [facility] CHEM PANEL Sodium Lvl 143 135 - 145 01/25 [facility] MOLECULAR C difficile Negative Negative 01/23 DIAGNOSTIC DNA (01/23/19 11:22 AM) [facility] CHEM PANEL Procalcitoni 2.76 0.00 - 01/23 Result n Lvl 0.10 Comment: [facility] Critical Result(s) called to A Levin at 01/23/2019 12:56 by cz. Read back OK. CHEM PANEL Lactic Acid 0.9 0.5 - 2.2 01/23 [facility] CHEM PANEL Magnesium 2.0 1.8 - 2.4 01/23 [facility] CHEM PANEL eGFR 115 01/23 Result Comment: The [facility] eGFR is calculated using the [...] PANEL CO2 23 24 - 32 01/23 [facility] CHEM PANEL Chloride Lvl 113 95 - 109 01/23 [facility] CHEM PANEL Potassium 3.1 3.5 - 5.1 01/23 [facility] CHEM PANEL Sodium Lvl 143 135 - 145 01/23 [facility] CHEM PANEL BUN 5 7 - 22 01/23 [facility] CHEM PANEL Creatinine 0.50 0.50 - 04 MH Lvl 1.40 /2018 [facility] CHEM PANEL Calcium Lvl 7.8 8.5 - 10.5 01/23 [facility] CHEM PANEL Glucose Lvl 83 70 - 99 01/23 [facility] CHEM PANEL AGAP 10.1 10.0 - 01/23 20.0 /2018 [facility] HEMATOLOGY Eosinophils 0.2 0.0 - 0.5 01/23 # [facility] HEMATOLOGY Monocytes # 0.8 0.0 - 0.8 01/23 [facility] HEMATOLOGY Neutrophils 5.5 1.5 - 8.1 01/23 [facility] HEMATOLOGY Lymphocytes 2.2 1.0 - 5.5 01/23 [facility] HEMATOLOGY Basophils 0.1 0.0 - 1.0 01/23 [facility] HEMATOLOGY Segs 63.6 45.0 - 01/23 75.0 /2018 [facility] HEMATOLOGY Monocytes 8.9 2.0 - 12.0 01/23 [facility] HEMATOLOGY Eosinophils 2.3 0.0 - 4.0 01/23 [facility] HEMATOLOGY RBC Morph Normal 01/23 (01/23/19 5:50 AM) [facility] HEMATOLOGY Plt Morph Normal 01/23 (01/23/19 5:50 AM) [facility] HEMATOLOGY Lymphocytes 25.1 20.0 - 01/23 40.0 [facility] HEMATOLOGY RDW 13.1 11.5 - 01/23 14.5 /2018 [facility] HEMATOLOGY Platelet 327 133 - 450 01/23 [facility] HEMATOLOGY MPV 7.7 7.4 - 10.4 01/23 [facility] HEMATOLOGY WBC 8.6 3.7 - 10.4 01/23 [facility] HEMATOLOGY Hgb 10.0 12.0 - 01/23 Result MH 16.0 Comment: [facility] Notified Raghavendra 01/23/2019 07:32 by smt. HEMATOLOGY MCHC 34.6 32.0 - 04 36.0 /2018 [facility] HEMATOLOGY Hct 28.7 36.0 - 01/23 48.0 /2018 [facility] HEMATOLOGY MCV 87.8 80.0 - 01/23 98.0 /2018 [facility] HEMATOLOGY MCH 30.4 27.0 - 04 31.0 [facility] HEMATOLOGY RBC 3.27 4.20 - 04 5.40 /2019 [facility] Culture: Normal Enteric Pam Isolated 01/22 Stool No Salmonella Or Shigella Isolated [facility] No Campylobacter Isolated CHEM PANEL Lactic Acid 2.4 0.5 - 2.2 01/22 Lvl [facility] CHEM PANEL Lactic Acid 3.0 0.5 - 2.2 01/22 Lvl [facility] URINE AND UA Spec Grav 1.014 <=1.030 01/22 STOOL [facility] URINE AND UA pH 6.0 5.0 - 8.0 01/22 STOOL [facility] URINE AND UA Protein Negative Negative 01/22 STOOL (01/22/19 2:14 AM) [facility] Glucose Negative Negative 01/22 STOOL *NA* /2018 [facility] (01/22/19 2:14 AM) URINE AND UA Ketones Negative Negative 01/22 STOOL *NA* /2018 [facility] (01/22/19 2:14 AM) URINE AND UA Bili Negative Negative 01/22 STOOL *NA* [facility] (01/22/19 2:14 AM) URINE AND UA Nitrite Negative Negative 01/22 STOOL (01/22/19 2:14 AM) /2018 [facility] URINE AND UA <=1.0 0.1 - 1.0 01/22 STOOL Urobilinogen mg/dL [facility] URINE AND UA Sq Epi Occasional Few /LPF 01/22 STOOL /LPF /2018 [facility] URINE AND UA Leuk Est Negative Negative 01/22 STOOL (01/22/19 2:14 AM) /[facility] Blood Negative Negative 01/22 STOOL (01/22/19 2:14 AM) /2018 [facility] URINE AND UA Mucus Few /LPF None Seen 01/22 STOOL /LPF [facility] URINE AND UA RBC <1 0 - 2 01/22 STOOL [facility] URINE AND UA Hyal Cast 25 0 - 2 01/22 STOOL [facility] URINE AND UA WBC 2 0 - 5 01/22 STOOL [facility] URINE AND UA Color Light Yellow Yellow 01/22 STOOL *NA* [facility] (01/22/19 2:14 AM) URINE AND UA Turbidity Clear Clear 01/22 STOOL (01/22/19 2:14 AM) /2018 [facility] est METAL [place] Lvl 0.90 0.50 - 01/22 1.50 /2018 [facility] BLOOD BANK ABO/Rh A POS 01/22 RESULTS /2018 [facility] BLOOD BANK Antibody Negative 01/22 RESULTS Scrn (01/22/19 12:01 AM) /2018 [facility] CARDIAC Troponin-I <0.02 0.00 - 01/22 ENZYMES 0.40 [facility] CARDIAC Total CK 49 12 - 191 01/22 ENZYMES /2018 [facility] CHEM PANEL Bili Total 0.6 0.2 - 1.3 01/22 /2018 [facility] CHEM PANEL Alk Phos 100 39 - 136 01/22 /2018 [facility] CHEM PANEL Albumin Lvl 4.0 3.5 - 5.0 01/22 [facility] CHEM PANEL AST 17 0 - 37 01/22 /2018 [facility] CHEM PANEL ALT 25 0 - 65 01/22 [facility] CHEM PANEL Total 8.1 6.4 - 8.4 01/22 Protein /2018 [facility] CHEM PANEL B/C Ratio 20 6 - 25 01/22 /2018 [facility] CHEM PANEL A/G Ratio 1.0 0.7 - 1.6 01/22 /2018 [facility] CHEM PANEL Globulin 4.1 2.7 - 4.2 01/22 /2018 [facility] CHEM PANEL Procalcitoni 6.90 0.00 - 01/22 Result n Lvl 0.10 Comment: [facility] Critical Result(s) called to Eliana Vega at 01/22/2019 00:50 by VV. Read back OK. ENDOCRINOL S Preg Negative Negative 01/22 OGY *NA* /2018 [facility] (01/22/19 12:01 AM) HEMATOLOGY Eosinophils 0.1 0.0 - 0.5 01/22 MH # /2019 [facility] HEMATOLOGY Monocytes # 0.7 0.0 - 0.8 01/22 /2018 [facility] HEMATOLOGY Basophils # 0.0 0.0 - 0.2 01/22 /2018 [facility] HEMATOLOGY Basophils 0.0 0.0 - 1.0 01/22 /2018 [facility] HEMATOLOGY Eosinophils 0.9 0.0 - 4.0 01/22 /2018 [facility] HEMATOLOGY Neutrophils 8.6 1.5 - 8.1 01/22 # /2019 [facility] HEMATOLOGY Lymphocytes 0.6 1.0 - 5.5 01/22 MH # /2019 [facility] Segs 86.5 45.0 - 01/22 MH 75.0 /2019 [facility] Lymphocytes 5.7 20.0 - 01/22 MH 40.0 /2018 [facility] Monocytes 6.9 2.0 - 12.0 01/22 /2018 [facility] WBC 9.9 3.7 - 10.4 01/22 /2018 [facility] MCHC 32.8 32.0 - 01/22 MH 36.0 /2018 [facility] RDW 13.6 11.5 - 01/22 14.5 /2018 [facility] Platelet 443 133 - 450 01/22 [facility] MPV 7.3 7.4 - 10.4 01/22 [facility] Hgb 14.0 12.0 - 01/22 16.0 /2018 [facility] RBC 4.85 4.20 - 01/22 5.40 /2018 [facility] Hct 42.7 36.0 - 01/22 MH 48.0 /2018 [facility] MCH 29.0 27.0 - 01/22 31.0 /2018 [facility] MCV 88.2 80.0 - 01/22 98.0 /2018 [facility] INR 0.96 0.85 - 01/22 MH 1.17 /2018 [facility] PT 12.6 12.0 - 01/22 14.7 /2018 [facility] PTT 25.9 22.9 - 01/22 35.8 /2018 [facility] Pathology Reports No Data Provided [...] dislocation of the left ankl e. SL: [id number] ED Abdomen/Pelvis IV Clinical Indication: Diarrhe a low blood pressure, abdominal pain. 01/22/2019 [facility] contrast only CT Comparison: None [...] Mild sigmoid diverticulosis without diverticu litis. SL: [id number] Chest 1view DX Clinical Indication: Undifferentiated sepsis. [facility] Comparison: None FINDINGS: AP view of the chest submitted for interpretatio n. Lungs are clear. Heart size is normal. Central pulmonary vasculat ure appears normal. No effusion. No pneumothorax. No radiographically apparent acute osseous abnor mality. IMPRESSION: 1. No radiographically apparent acute cardiopulm onary process. SL: [id number] Consultation Notes No Data Provided for This Section Discharge Summaries No Data Provided for This Section History and Physicals No Data Provided for This Section Vital Signs Vital Sign Value Date Comments Source Temperature Oral (F) 98.6 F 01/28/[place] [facility] Systolic (mm Hg) 137 01/28/2019 [facility] t Diastolic (mm Hg) 84 01/28/2019 [facility] st Heart Rate 82 01/28/2019 [facility] Respitory Rate 18 01/28/2019 [facility] Systolic (mm Hg) 113 01/27/2019 [facility] t Diastolic (mm Hg) 72 01/27/2019 [facility] st Heart Rate 77 01/27/2019 [facility] Respitory Rate 18 01/27/2019 [facility] Temperature Oral (F) 98.5 F 01/27/[place] [facility] Systolic (mm Hg) 108 01/27/2019 [facility] t Diastolic (mm Hg) 71 01/27/2019 [facility] st Temperature Oral (F) 98.5 F 01/27/2019 [facility] Heart Rate 86 01/27/2019 [facility] Respitory Rate 18 01/27/2019 [facility] Height 157.48 cm 01/22/2019 [facility] BMI Calculated 30.24 01/22/2019 [facility] Weight 75 01/22/2019 [facility] Weight 75.994 01/22/2019 [facility] Encounters Location Location Encounter Encounter Reason Attending ADM TX Stat us Source Details Type Number For Provider Date Date [facility] [id number] Ed 01/22 01/28 Yonis Sandovalni /2018 [facility] Procedures No Data Provided for This Section Assessment and Plan Assessment and Plan Date Source Extracted from:Title: Discharge Summary 01/28/2019 [facility] Author: Axel Arriaga MD Date: [...] abdominal pain, presented to the ER from [facility] for evaluation of hypotension. She complains of [...] and recommended to be transferred back [place] [facility] Physical Exam: Vitals Tmp(F) Pulse BP RR [...] MD on 01/27/2019 15:26 Patient was to [facility] denied her. I spoke to physician at [facility] who has accepted patient. Extracted from:Title: Progress Note Author: Axel Arriaag MD Date: 01/25/19 48 year old female Admitted with hypotension, abdominal pain and sepsis. Was at [facility] for exacerbation of depression/bipolar disorder. Ct abd/pelvis showed mild enterocolitis . CXR and UA are clear.No leucocytosis. But lactic acid and pro-calcitonin elevated and patient was significantly hypotensive on admission. Patient is currently on IV antibiotics and IV fluids. Colitis improving Hypotension secondary to colitis improved with IV fluids Depression and bipolar disorder with re cent admission at [facility] with concern for psychosis Hypokalemia secondary to diarrhea treated Anemia of chronic disease Plan: Will DC IV fluids, will advance diet to regular diet We will continue with Cipro and Flagyl We will replacepotassiump.o. Discussed with psych response team. The ymentioned that patient is having some delusions but otherwiseno suicidal homicidal ideations. They haveclearthe patient to go back to [facility] rehab once medica lly cleared. Exclusionary paperwork is i n the chart to be signed bythe physician once medically cleared. Discussed in MDR's: Likely dischargeto morrowif tolerating regular diet and labs arewnl Extracted from:Title: History and Physical Author: Ed Demarco DO Date: 01/22/19 48 y/o female with history of bipolar di sorder currently admitted at [facility], depression and abdominal hernia brought in via EMS from [facility] for evaluation of hypotension. 1.Severe sepsis(R65.20) Hypotensive [...] Source Social History TypeResponse 01/22/2019 [facility] Smoking Status Light tobacco smoker; Exposure to Tobacc o Smoke None; Cigarette Smoking Last 365 Days No; Reg Smoking Cessation Counseling No entered on: 01/22/19 Family History No Data Provided for This Section Advance Directives No Data Provided for This Section Functional Status No Data Provided for This Section
--- OUTSIDE RECORDS SUMMARY | 2020-03-24 07:36 | XMS REPORT ---
:1970 Author Organization [facility] t Address [address] [place] [address] Care Team Providers Name Role Phone UNKNOWN Primary Care Physician Unavailable Dav Attending Clinician LOS Attending Clinician Unavailable Dav Admitting Clinician LOS Admitting Clinician Unavailable Problems Condition Condition Condition Status Onset Resolution Last Treating Co mments Source Name Details Category Date Date Treatment Clinician Date LOW PB Diagnosis Active 2019-01-22 MH 3-30 01:52:00 [facility] LOW PB 00:00: st 00 Active 01/21/2019 [facility] INFECTIOUS Diagnosis Active 2019-02-06 GASTROENTE 01-21 08:58:00 [facility] AND 00:[facility]: st COLITIS INFECTIOUS 00 GASTROENTE RITIS AND COLITIS Active 01/21/2019 [facility] INFECTIOUS Diagnosis Active 2019-02-06 GASTROENTE 08:58:00 [facility] COLITIS, INFECTIOUS GASTROENTE RITIS AND COLITIS, Active [facility] Allergies, Adverse Reactions, Alerts Allergy Allergy Status Severity Reaction(s) Onset Inactive Treating Comm ents Source Name Type Date Date Clinician Phenerga Phenerga Active [place] [facility] Social History Smoking Status Start Date Stop Date Source Social History 2019-01-22 05:00:12 [facility] Medications Ordered Filled Start Stop [...] 4-04 tab, PO, e oral tablet 17:35: [id number], X st 00 4 day, # 8 [...] s with feeding tube less than 14 Belgian (Dobhoff, J-tube etc) and pediatric and patients. [...] 500 mg, le 500 MG 01-23 PO, [facility] Oral Tablet 14:20: [id number], 0 s t [Flagyl] 00 Refill(s) Ciprofloxac No 500 mg, in 500 MG 01-23 PO, [facility] Oral Tablet 14:20: [id number], 0 st [Cipro] 00 Refill(s) Potassium No [...] s with feeding tube less than 14 Belgian (Dobhoff, J-tube etc) and pediatric and patients. [...] Temperature Oral (F) 2019-01-28 01:16:[address] [facility] Systolic (mm Hg) 2019-01-28 01:16:00 [facility] Diastolic (mm Hg) 2019-01-28 01:16:00 [facility] Heart Rate 2019-01-28 01:16:00 [facility] Respitory Rate 2019-01-28 01:16:00 [facility] Systolic (mm Hg) 2019-01-27 20:42:00 [place] Diastolic (mm Hg) 2019-01-27 20:42:00 [facility] Heart Rate 2019-01-27 20:42:00 [facility] Resp[facility] 2019-01-27 [facility] 2019-01-27 20:42:[address] [facility] Systolic (mm Hg) 2019-01-27 17:00:00 [facility] Diastolic (mm Hg) 2019-01-27 17:00:00 [facility] Temperature Oral (F) 2019-01-27 17:00:[address] [facility] Heart Rate 2019-01-27 17:00:00 [facility] Respitory Rate 2019-01-27 17:00:00 [facility] Height 2019-01-22 14:35:00 157.48 cm [facility] BMI Calculated 2019-01-22 14:35:00 [facility] Weight 2019-01-22 14:35:00 [facility] Weight 2019-01-22 04:34:00 [facility] Procedures This patient has no known procedures. Encounters Start End Encounter Admission Attending Care Care Encounter Source Date/Time Date/Time Type Type Clinicians Facility Department ID 2019-01-22 Inpatient E [facility] [address] [facility] W 04:39:00 2019-01-22 2019-01-28 Inpatient SHADIA Angel [id number] MH 04:33:00 04:40:00 Yonis 00 [facility] 2019-01-21 2019-01-27 Outpatient Dav [facility] [id number] 23:33:00 23:40:00 Ed 00 2018-02-21 2018-02-20 Inpatient [facility] [id number] 14:48:00 13:18:00 [facility] Results Test Description Test Time Test Comments [...] = Expiration Dt) 10-24-2020 N Thyroid Stimulating Vqjfcpc3582-12-03 08:35:16 Test Item Value Reference Range Interpretation Comments TSH (test code = TSH) 1.170 mIU/mL 0.270-4.200 Lipid Xvrlk4511-50-88 08:21:19 Test Item Value Reference Range Interpretation Comments Cholesterol Total 254 mg/dL 0-200 H RISK OF HE ART (test code = DISEASEPublishe d by Cholesterol Total) [employer] [place] Optimal Borderl ine [...] calculation is LDL/HDL Ratio=L DL Calc/HDL Chol KUCAOMECDOBL7351-44-24 08:24:008.6MRobert F. Kennedy Medical CenterFcftxrpsdONKDZMNUBUSC3233-93-77 08:24:57281 ThwnakjemRVNQSROROLJY9646-15-62 08:24:0027 KnnohuojdOTHFHCCBCXFL4967-35-43 08:24:25580BUSt. [facility]akeLtgoszgrhXOPEPUYXJLJC7735-27-71 08:24:003.[address] [place] [address] TQHOMWSJEPSG6052-48-33 08:24:000.70[facility]akeBicjhrpyzQXIJBAUIWFPI7865-57-50 08:24:[address] [facility]akeCrckbotagLBDSZRJOZYMV0222-26-99 08:24:13194FB SouthwestELECTROLYTES 2019-01-26 08:24:0086[facility]akeYvmwizdloSAXTOUYMZETU4640-88-12 08:24:006[facility] JSVVOGGHAM1452-32-97 08:24:0011.6MRobert F. Kennedy Medical CenterHujzcvwbdPXWVESGXYW9050-66-81 08:24:003.78[facility]akeAieahjrooVXEACSHHYV6347-74-34 08:24:0013.3MRobert F. Kennedy Medical CenterDujvmgawjQQPYFMMQPF7811-74-86 08:24:0034.0[facility]akeCyyuhswzfOCIRBNFXGC0639-54-94 08:24:006.[facility] SouthwestHEMATOLOGY 2019-01-26 08:24:00 Test Item Value Reference Range Interpretation Comments MCH (test code = MCH) 30.7 pg 27.0-31.0 CvkuaubhaXDXCIKMUIJ1136-49-50 08:24:0090.3M GdepquwlgHBMIUKXVXR0357-45-41 08:24:[address] [place], [place] [address]OtltjtjynYWICFRVNSW3765-04-67 08:24:24971JDSt. [facility]akeHEMATOLOGY 2019-01-26 08:24:007.5[facility]akeCHEM WQOEF2398-95-39 09:14:38247BTSt. [facility] CHEM XPIIV2343-70-82 09:14:008.5MH SouthwestCHEM TKYHM8532-33-55 09:14:0013.3MH SouthwestCHEM TTTCJ2933-30-32 09:14:0024MH SouthwestCHEM EWAFJ4306-61-56 09:14:26672DX SouthwestCHEM QWJUW0919-19-00 09:14:0081MH SouthwestCHEM PANEL 2019-01-25 09:14:002MH SouthwestCHEM KKPLM5871-43-97 09:14:003.3MH SouthwestCHEM GGVFU4719-46-11 09:14:000.60MH SouthwestCHEM UOKCM0415-35-56 09:14:56151BX SouthwestMOLECULAR UZLQPXDLLX1037-21-37 16:22:00Negative (01/23/19 11:22 AM) SouthwestCHEM CEOLI7124-38-54 15:42:002.76MH SouthwestCHEM FYVPD3123-67-27 12:32:000.9 [facility]CHEM WJKTL1056-99-40 10:50:002.0MH SouthwestCHEM PANEL 2019-01-23 10:50:12623CT SouthwestCHEM XJYSR2529-43-90 10:50:0023MH [facility] CHEM CVMXP6016-10-61 10:50:63397YX SouthwestCHEM QLKPH7577-73-28 10:50:003.1MH SouthwestCHEM CPCCL4341-96-68 10:50:31189CM SouthwestCHEM YWHTO2686-84-75 10:50:005MH SouthwestCHEM KNNPK6119-24-39 10:50:000.50MH SouthwestCHEM PANEL 2019-01-23 10:50:007.8MH SouthwestCHEM JQJLG6664-93-25 10:50:0083MH [facility] CHEM DDQJY0807-18-59 10:50:0010.1MH SzvkputziBZXJSXMHOE0332-12-55 10:50:000.2MH IsymgmwjsQLSBOPUDNZ4171-29-52 10:50:000.8MH LqugimorjQKPZHOLCDF1481-45-62 10:50:005.5MH QoarsrhdhJJPDRPMGXF6262-54-70 10:50:002.2MH SouthwestHEMATOLOGY 2019-01-23 10:50:000.1MH WzgmivqqmXRTMFZDCPA3791-00-28 10:50:0063.6MH [facility] VOSBHJFXGV5566-54-32 10:50:008.9MH MayukouszJSHCVTAEGQ5000-73-79 10:50:002.3MH OfeecwsfkTPFZEQJBAQ1526-22-96 10:50:00Normal (01/23/19 5:50 AM)[facility] NUAGYMPXDY2712-17-72 10:50:00Normal (01/23/19 5:50 AM)[facility] 2019-01-23 10:50:0025.1MRobert F. Kennedy Medical CenterWzmvlecdqQRNJDXQLAS0432-92-21 10:50:0013.1MRober[facility]. [facility] BIFRREHXAT7760-60-56 10:50:81365ZKSt[address] [facility] ClearlakeQeuymmzufDXVXFYVVFJ9496-81-54 10:50:007.7[facility]akeWbjcqquvzTLOZCWUZWT5471-78-90 10:50:008.6MRobert F. Kennedy Medical CenterNeypylgujPHIWZMJOUD4532-81-87 10:50:0010.0[facility]akeSsmrdqctsINRTNIIDLX7969-85-28 10:50:0034.6MRobert F. Kennedy Medical CenterHEMATOLOGY 2019-01-23 10:50:0028.7[facility]akeUasgwvlciYLHSDZIWMI3642-60-87 10:50:0087.8[facility] FPMBGEUYSO2667-70-38 10:50:00 Test Item Value Reference Range Interpretation Comments MCH (test code = MCH) 30.4 pg 27.0-31.0 [facility]akeHjascbacjATYAZJXHND2536-45-37 10:50:003.27[facility]akeCHEM QHSIA7546-31-25 11:32:002.4[facility]akeCHEM GAKHS7433-52-84 09:04:003.0[facility] AND IZBPH4714-90-58 07:14:00 Test Item Value Reference Range Interpretation Comments UA Spec Grav (test code = UA Spec 1.014 1 Grav) [facility] AND DIOSG2803-67-10 07:14:00 Test Item Value Reference Range Interpretation Comments UA pH (test code = UA pH) 6.0 1 5.0-8.0 SouthwestURINE AND TMKVV2139-69-28 07:14:00Negative (01/22/19 2:14 AM) SouthwestURINE AND MHPAF1736-67-39 07:14:00Negative *NA*(01/22/19 2:14 AM)[facility] KRZVL7839-25-17 07:14:00Negative *NA*(01/22/19 2:14 AM)[facility] CZJYL0393-48-25 07:14:00Negative *NA*(01/22/19 2:14 AM)[facility] SouthwestURINE AND GQJVK8121-08-06 07:14:00Negative (01/22/19 2:14 AM)[facility] SouthwestURINE AND RCJZH1542-96-19 07:14:00Negative (01/22/19 2:14 AM)[facility]URINE AND FAZFL5818-02-62 07:14:00Negative (01/22/19 2:14 AM)MH SouthwestURINE AND PUEOC2986-18-79 07:14:00<1MH SouthwestURINE AND STOOL 2019-01-22 07:14:0025 SouthwestURINE AND MCAYB6699-34-98 07:14:002MH [facility] URINE AND ZWLND2046-20-20 07:14:00Light Yellow *NA*(01/22/19 2:14 AM)[facility] URINE AND VQUTS7275-87-50 07:14:00Clear (01/22/19 2:14 AM)[facility]AL 2019-01-22 05:16:000.90[facility]akeBL[facility] BANK ELVOFLL9211-65-39 05:01:00Negative (01/22/19 12:01 AM)[facility]ARD[facility] BVFMBRH4527-94-07 05:01:00<0.02MH [facility] CenterCARD[facility] UWNFSWY9174-98-63 05:01:0049[facility]akeCHEM OGSEA2592-04-30 05:01:000.6MH [facility] CenterCHE[facility] BCXTJ9635-46-87 05:01:24693UV SouthwestCHEM PANEL 2019-01-22 05:01:004.0 SouthwestCHEM EEUYK8861-55-82 05:01:0017[facility] CHEM ELESM2046-31-77 05:01:0025[facility]akeCHEM GRUDP8309-22-24 05:01:008.1MH [facility] CenterCHE[facility] PAWGJ4923-56-49 05:01:00 Test Item Value Reference Range Interpretation Comments B/C Ratio (test code = B/C Ratio) 20 1 6-25 [facility] BTGJB0116-24-29 05:01:00 Test Item Value Reference Range Interpretation Comments A/G Ratio (test code = A/G Ratio) 1.0 1 0.7-1.6 SouthwestCHEM QSBYL5020-21-74 05:01:004.1MH [facility] CenterCHE[facility] NJQMF6852-34-40 05:01:006.90[facility]akeUejwulfvsOUISVBSCHEJCE6516-45-15 05:01:00Negative *NA*(01/22/19 12:01 AM)[facility]akeYybswekxyMPZSEOTDJK5579-01-93 05:01:000.1MH SouthwestHEMATOLOGY 2019-01-22 05:01:000.7[facility]akeCbrqvlssdSCCTTGFBJT2148-24-54 05:01:000.0[facility] STEQRUBGBY6119-75-80 05:01:000.0[facility]akeMzsaphtyrMWFJUQGBJA6767-99-94 05:01:000.9[facility]akeIiysewjcgHUSQZAJDZS2089-05-84 05:01:008.6MRobert F. Kennedy Medical CenterHhimteqjoHIDXLPFLTF9417-69-13 05:01:000.6MRobert F. Kennedy Medical CenterDxwxdjplmZYHGVMKGJV4967-95-78 05:01:0086.5[facility] 2019-01-22 05:01:005.7[facility]arlakeUvrdnmfahIFJZKLPGDT7760-90-02 05:01:006.9[facility] HHWBIKFRRT6440-74-49 05:01:009.9[facility]arlakeWtjailsdvNVVPXOUZHC4695-13-77 05:01:0032.8[facility]akeNvtwjduzzZQEBIJTPTP7081-37-42 05:01:0013.6MRobert F. Kennedy Medical CenterHagtnikaqAPPMRWBZOC0248-60-79 05:01:23568WKSt. [facility] Hospital ClearlakeDdeogezcnFUQPLSGEZU0568-89-84 05:01:007.3MRobert F. Kennedy Medical CenterHEMATOLOGY 2019-01-22 05:01:0014.0[facility]arlakeGlsltymheBVHYBLHRBN0217-00-88 05:01:004.85[facility] FKHYLYCINY5710-01-47 05:01:0042.7[facility]arlakeCdforcezgVVGDYVKCUX5070-09-62 05:01:00 Test Item Value Reference Range Interpretation Comments MCH (test code = MCH) 29.0 pg 27.0-31.0 [facility]akeTijsdnbznUMMFNPKUEC7821-22-37 05:01:0088.2MRobert F. Kennedy Medical CenterQsobvdsfjTFAKAEJVJE8218-72-68 05:01:00 Test Item Value Reference Range Interpretation Comments INR (test code = INR) 0.96 1 0.85-1.17 [facility]akeQgexxxqtwAGMWFKKPSX0225-91-01 05:01:00 Test Item Value Reference Range Interpretation Comments PT (test code = PT) 12.6 s 12.0-14.7 [facility]arlakeZsjwzefokJGDTOQDPSE5548-53-84 05:01:00 Test Item Value Reference Range Interpretation Comments PTT (test code = PTT) 25.9 s 22.9-35.8 [facility] CenterRvcsacxwfSCC1Z2037-71-67 14:36:00 Test Item Value Reference Range Interpretation [...] 0.00-0.01 N code = ETOHU) Comprehensive Metabolic Emfgv0157-59-18 14:36:00 Test Item Value Reference Range Interpretation [...] the National Kidney Foundation,http ://nkd ep.nih.gov Urinalysis Rpezsybs6176-78-66 14:32:00 Test Item Value Reference Range Interpretation Comments Color (test code = COLOR) Yellow Yellow,Straw,Pl N yellow Clarity (test code = Clear Clear N CLAR) Specific [place] (test 1.024 1.001-1.035 N code = SPGR) [...] code = Few /HPF BACT) CBC with Yxkxmrgampox3852-40-64 14:21:00 Test Item Value Reference Range Interpretation [...] code = ALYMPH) 3.0 K/cumm 0.5-4.6 N Mccracken Abs (test code = AMONO) 0.5 K/cumm 0.0-1.2 N Eos Abs (test code = AEOS) 0.19 K/cumm 0.00-0.74 N Baso Abs (test code = ABASO) 0.1 K/cumm 0.00-0.21 N
[2020-03-24 08:15] LABS: Absolute Lymphocytes (CBC) 2.1 K/uL (0.7-4.9); Basophils % 0.7 % (0-1.3); Hematocrit 37.8 % (36.0-45.0)
[2020-03-24 08:16] LABS: Barbiturates NEGATIVE (NEGATIVE); Benzodiazepines NEGATIVE (NEGATIVE); Cocaine NEGATIVE (NEGATIVE); METHAMPHETAM NEGATIVE (NEGATIVE); Methadone NEGATIVE (NEGATIVE); Opiates NEGATIVE (NEGATIVE); Phencyclidine NEGATIVE (NEGATIVE); THC Cannibis NEGATIVE (NEGATIVE)
[2020-03-24 08:21] LABS: Protime INR 0.94
[2020-03-24] MEDS ORDERED: LORazepam 2 MG/ML VIAL ONE (08:21)
[2020-03-24] MEDS ORDERED: ONDANSETRON 4 MG/2 ML VIAL ONE (08:21)
[2020-03-24 08:23] LABS: Urine Blood NEGATIVE (NEG); Urine Glucose NEGATIVE (NEG); Urine Protein NEGATIVE (NEG)
[2020-03-24 08:46] LABS: ALT/SGPT 17 U/L (12-78); AST/SGOT 14 U/L (15-37); Albumin 3.5 g/dL (3.4-5.0); Alkaline Phosphatase 90 U/L (45-117); BUN Blood Urea Nitrogen 14 mg/dL (7-18); Bicarbonate 24 mmol/L (21-32); Bilirubin Direct < 0.1 mg/dL (0-0.2); Bilirubin Total 0.2 mg/dL (0.2-1.0); Glucose Level 92 mg/dL (74-106); Potassium 4.2 mmol/L (3.5-5.1); Protein, Total 7.3 g/dL (6.4-8.2); Sodium Level 137 mmol/L (136-145)
[2020-03-24] MEDS ORDERED: PROMETHAZINE INJ 25 MG/ML AMP ONE (09:04)
[2020-03-24] MEDS ORDERED: LORAZEPAM 1 MG TABLET ONE (09:24)
[2020-03-24] MEDS ORDERED: ACETAMINOPHEN 500 MG TAB ONE (10:15)
[2020-03-24 10:39] VITALS: O2SAT 99
[2020-03-24 10:40] VITALS: BP 128/84; TEMP 98
--- NOTE | 2020-03-24 14:05 | EKG ---
Test Date: 2020-03-24 Test Time: 09:28:56 Check Clerk: PH MEASUREMENT RESULTS: Intervals: Rate: 101 ND: 142 QRSD: 80 QT: 364 QTc: 471 [place]ogg: P: 27 ND: 142 QRS: -18 T: 43 INTERPRETIVE STATEMENTS: Sinus tachycardia RSR' or QR pattern in V1 suggests right ventricular conduction delay Anterior infarct, age undetermined Abnormal ECG Compared to ECG 03/17/2020 13:17:37 Sinus rhythm no longer present Myocardial infarct finding still present Electronically Signed On 03-24-20 14:04:00 CDT by Tito Smiley
--- NOTE | 2020-03-25 18:47 | ER ---
Nurse's Notes [facility] Name: Tiffany Quinn Age: 49 yrs Sex: Female : 1970 Arrival Date: 03/24/2020 Time: 07:34 Bed 3 Private MD: Diagnosis: Anxiety disorder, unspecified Presentation: 03/24 07:36 Chief complaint: EMS states: Pt initially called stating that she thought she was ph having a stroke or a seizure, c/o heart racing, N/V and "trembling", has hx of anxiety, seen recently in ED for similar complaint, DINAH 121/77, HR 106 sinus tach. Coronavirus screen: Patient denies a cough. Patient denies shortness of breath or difficulty breathing. Patient denies measured and/or subjective temperature greater than 100.4F prior to today's visit. Patient denies travel on a cruise ship or to a country the [facility] currently lists as an affected area. Patient denies contact with known and/or suspected case of COVID-19. Ebola Screen: No symptoms or risks identified at this time. Initial Sepsis Screen: Does the patient meet any 2 criteria? No. Patient's initial sepsis screen is negative. Does the patient have a suspected source of infection? No. Patient's initial sepsis screen is negative. Risk Assessment: Do you want to hurt yourself or someone else? Patient reports no desire to harm self or others. 07:36 Method Of Arrival: EMS: [facility] ph 07:36 Acuity: MANUEL 3 ph Historical: - Allergies: 07:41 Stadol; ph 07:41 Toradol; ph - Home Meds: 07:41 Klonopin Oral [Active]; Latuda Oral [Active]; Prozac Oral [Active]; Strattera Oral ph [Active]; Zyprexa 5 mg Oral tab nightly [Active]; - PMHx: 07:41 ADD/ADHD; Bipolar disorder; Hernia; Migraines; PSYCH PROBLEMS; Schizophrenia; unsure if ph she is; Seizures; - PSHx: 07:41 Hernia repair; breast implants; Cholecystectomy; ph - Immunization history:: Adult Immunizations unknown. - Social history:: Smoking status: Patient denies any tobacco usage or history of. Screenin:41 Abuse screen: Denies threats or abuse. Denies injuries from another. Nutritional ph screening: No deficits noted. Tuberculosis screening: No symptoms or risk factors identified. Fall Risk None identified. Assessment: 07:44 General: Appears in no apparent distress. comfortable, well groomed, Behavior is ph cooperative, appropriate for age, anxious, Denies fever. Pain: Denies pain. Neuro: Level of Consciousness is awake, alert, obeys commands, Oriented to person, place, time, situation. Cardiovascular: Capillary refill < 3 seconds in bilateral fingers Patient's skin is warm and dry. Respiratory: Airway is patent Respiratory effort is even, unlabored, Respiratory pattern is regular, symmetrical. GI: Reports nausea, vomiting, Patient currently denies abdominal pain. Derm: Skin is intact, is healthy with good turgor, Skin is pink, warm \\T\\ dry. Musculoskeletal: Circulation, motion, and sensation intact. Range of motion: intact in all extremities. 09:00 Reassessment: Patient appears in no apparent distress at this time. Patient and/or ph family updated on plan of care and expected duration. Pain level reassessed. Patient is alert, oriented x 3, equal unlabored respirations, skin warm/dry/pink. Pt continues to c/o nausea and anxiety after IV medications, states, " Do you think I can get some Phenergan?" ERP notified and phenergan administered, see ALESIA, pt then states, " Did he say if I could have some more ativan? Can you ask him right away? And let him know that I have a headache too." Pt c/o headache in frontal area, denies dizziness or blurred vision. 09:57 Reassessment: Patient appears in no apparent distress at this time. Patient and/or ph family updated on plan of care and expected duration. Pain level reassessed. Patient is alert, oriented x 3, equal unlabored respirations, skin warm/dry/pink. 10:22 Reassessment: Patient appears in no apparent distress at this time. Patient and/or ph family updated on plan of care and expected duration. Pain level reassessed. Patient is alert, oriented x 3, equal unlabored respirations, skin warm/dry/pink. Pt d/c home w/ prescriptions, instructed to follow up w/ PCP. Vital Signs: 07:36 BP 129 / 92; Pulse 93; Resp 18; Temp 97.8; Pulse Ox 99% on R/A; Weight 72.57 kg; Height ph 5 ft. 2 in. (157.48 cm); Pain 0/10; 08:43 BP 123 / 81; Pulse 98; Resp 16; Pulse Ox 98% ; sv 09:03 BP 122 / 78; Pulse 91; Resp 18; Pulse Ox 99% on R/A; ph 10:04 BP 128 / 84; Pulse 99; Resp 18; Temp 98.0; Pulse Ox 99% on R/A; ph 07:36 Body Mass Index 29.26 (72.57 kg, 157.48 cm) ph ED Course: 07:34 Patient arrived in ED. ph 07:36 Venkatesh Funez NP is PHCP. pm1 07:36 Demarcus Mancilla MD is Attending Physician. pm1 07:39 Triage completed. ph 07:44 Arm band placed on Patient placed in a hallway bed, on a stretcher. ph 07:44 Patient has correct armband on for positive identification. Bed in low position. Call ph light in reach. Side rails up X 1. Pulse ox on. NIBP on. Door closed. Noise minimized. Warm blanket given. 08:00 Inserted saline lock: 22 gauge in left hand, using aseptic technique. Blood collected. sv Flushed left hand with 5 ml normal saline. 08:13 Yana Harris, RN is Primary Nurse. ph 10:04 No provider procedures requiring assistance completed. ph 10:22 IV discontinued, intact, bleeding controlled, No redness/swelling at site. Pressure ph dressing applied. Administered Medications: 08:19 Drug: Ativan 0.5 mg Route: IVP; Site: left hand; ph 08:44 Follow up: Response: No adverse reaction; No change in condition sv 08:19 Drug: Zofran (Ondansetron) 4 mg Route: IVP; Site: left hand; ph 08:43 Follow up: Response: No adverse reaction; No change in condition sv 09:00 Drug: Phenergan 12.5 mg Route: IVP; Site: left hand; ph 10:23 Follow up: Response: No adverse reaction; Nausea is decreased ph 09:32 Drug: Ativan 1 mg Route: PO; ph 10:23 Follow up: Response: No adverse reaction; Anxiety decreased ph 10:15 Drug: Tylenol 1000 mg Route: PO; ph 10:23 Follow up: Response: No adverse reaction; Medication administered at discharge. ph Outcome: 10: Discharge ordered by . pm1 10: Discharged to home ambulatory. ph 10: Condition: good 10: Discharge instructions given to patient, Instructed on discharge instructions, follow up and referral plans. medication usage, Demonstrated understanding of instructions, follow-up care, medications, Prescriptions given X 2. 10:23 Patient left the ED. ph Signatures: Julissa Marte RN RN Yana Harris RN RN ph Marinas, Patrick, PATRICK MANAGER HOSPITAL[facility] pm1
--- NOTE | 2020-03-25 18:47 | EDPHYS ---
Physician Documentation [facility] Name: Tiffany Quinn Age: 49 yrs Sex: Female : 1970 Arrival Date: 03/24/2020 Time: 07:34 Bed 3 Private MD: ED Physician Demarcus Mancilla HPI: 03/24 07:52 This 49 yrs old Female presents to ER via EMS with complaints of Anxiety. pm1 07:52 The patient presents to the emergency department with anxiety, ran out of clonazepam. pm1 07:52 Onset: The symptoms/episode began/occurred today. Past psychiatric history: Prior pm1 diagnosis: bipolar disorder, schizophrenia, Anxiety . Associated signs and symptoms: Pertinent positives; hyperventilation and palpitations , Pertinent negatives: abdominal pain, chest pain, fever, shortness of breath. Severity of symptoms: in the emergency department the symptoms are worse. The patient has experienced similar episodes in the past, multiple times. It is unknown whether or not the patient has recently seen a physician. Historical: - Allergies: 07:41 Stadol; ph 07:41 Toradol; ph - Home Meds: 07:41 Klonopin Oral [Active]; Latuda Oral [Active]; Prozac Oral [Active]; Strattera Oral ph [Active]; Zyprexa 5 mg Oral tab nightly [Active]; - PMHx: 07:41 ADD/ADHD; Bipolar disorder; Hernia; Migraines; PSYCH PROBLEMS; Schizophrenia; unsure if ph she is; Seizures; - PSHx: 07:41 Hernia repair; breast implants; Cholecystectomy; ph - Immunization history:: Adult Immunizations unknown. - Social history:: Smoking status: Patient denies any tobacco usage or history of. ROS: 07:52 Constitutional: Negative for fever, chills, and weight loss, Neck: Negative for injury, pm1 pain, and swelling. 07:52 Respiratory: Negative for shortness of breath, cough, wheezing, and pleuritic chest pain, Abdomen/GI: Negative for abdominal pain, nausea, vomiting, diarrhea, and constipation, Back: Negative for injury and pain, MS/Extremity: Negative for injury and deformity, Skin: Negative for injury, rash, and discoloration. 07:52 Neuro: Negative for headache, weakness, numbness, tingling, and seizure. 07:52 Cardiovascular: Positive for palpitations, Negative for chest pain. 07:52 Psych: Positive for anxiety, Negative for depression, auditory hallucinations, visual hallucinations, homicidal ideation, suicide gesture, suicidal ideation. Exam: 07:52 Constitutional: This is a well developed, well nourished patient who is awake, alert, pm1 and in no acute distress. Head/Face: Normocephalic, atraumatic. Neck: Trachea midline, no thyromegaly or masses palpated, and no cervical lymphadenopathy. Supple, full range of motion without nuchal rigidity, or vertebral point tenderness. No Meningismus. Chest/axilla: Normal chest wall appearance and motion. Nontender with no deformity. No lesions are appreciated. 07:52 Back: No spinal tenderness. No costovertebral tenderness. Full range of motion. Skin: Warm, dry with normal turgor. Normal color with no rashes, no lesions, and no evidence of cellulitis. MS/ Extremity: Pulses equal, no cyanosis. Neurovascular intact. Full, normal range of motion. 07:52 Cardiovascular: Exam negative for acute changes, Rate: normal, Rhythm: regular, Pulses: no pulse deficits are appreciated. 07:52 Respiratory: Exam negative for acute changes, respiratory distress, shortness of breath. 07:52 Abdomen/GI: Exam negative for acute changes, Inspection: abdomen appears normal, Palpation: abdomen is soft and non-tender, in all quadrants, mass, is not appreciated, rebound tenderness, is not appreciated. 07:52 Neuro: Exam negative for acute changes, Orientation: is normal, Mentation: is normal, Motor: is normal, moves all fours. Vital Signs: 07:36 BP 129 / 92; Pulse 93; Resp 18; Temp 97.8; Pulse Ox 99% on R/A; Weight 72.57 kg; Height ph 5 ft. 2 in. (157.48 cm); Pain 0/10; 08:43 BP 123 / 81; Pulse 98; Resp 16; Pulse Ox 98% ; sv 09:03 BP 122 / 78; Pulse 91; Resp 18; Pulse Ox 99% on R/A; ph 10:04 BP 128 / 84; Pulse 99; Resp 18; Temp 98.0; Pulse Ox 99% on R/A; ph 07:36 Body Mass Index 29.26 (72.57 kg, 157.48 cm) ph MDM: 07:43 Patient medically screened. pm1 10:01 Data reviewed: vital signs. Data interpreted: Pulse oximetry: on room air is 99 %. pm1 Interpretation: normal. 10:01 Counseling: I had a detailed discussion with the patient and/or guardian regarding: the pm1 historical points, exam findings, and any diagnostic results supporting the discharge/admit diagnosis, lab results, the need for outpatient follow up, to return to the emergency department if symptoms worsen or persist or if there are any questions or concerns that arise at home. 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 pm1 03/24 07:48 Order name: Acetaminophen; Complete Time: 08:55 pm03/24 07:48 Order name: Basic Metabolic Panel; Complete Time: 08:55 pm03/24 07:48 Order name: CBC with Diff; Complete Time: 08:40 pm03/24 07:48 Order name: ETOH Level; Complete Time: 08:40 pm03/24 07:48 Order name: Hepatic Function; Complete Time: 08:55 pm03/24 07:48 Order name: PT-INR; Complete Time: 08:40 03/24 07:48 Order name: Ptt, Activated; Complete Time: 08:40 pm03/24 07:48 Order name: Salicylate; Complete Time: 08:55 pm03/24 07:48 Order name: Urine Drug Screen; Complete Time: 08:40 pm03/24 08:08 Order name: Urine Dipstick--Ancillary (enter results); Complete Time: 08:40 eb 03/24 08:08 Order name: Urine --Ancillary (enter results); Complete Time: 08:40 eb 03/24 07:48 Order name: Urine Test (obtain specimen); Complete Time: 08:07 pm03/24 07:48 Order name: EKG; Complete Time: 07:49 pm03/24 07:48 Order name: EKG - Nurse/Tech; Complete Time: 09:34 pm03/24 07:48 Order name: IV Saline Lock; Complete Time: 08:07 pm03/24 07:48 Order name: Labs collected and sent; Complete Time: 08:07 pm03/24 07:48 Order name: Urine Dipstick-Ancillary (obtain specimen); Complete Time: 08:07 pm1 Administered Medications: 08:19 Drug: Ativan 0.5 mg Route: IVP; Site: left hand; ph 08:44 Follow up: Response: No adverse reaction; No change in condition sv 08:19 Drug: Zofran (Ondansetron) 4 mg Route: IVP; Site: left hand; ph 08:43 Follow up: Response: No adverse reaction; No change in condition sv 09:00 Drug: Phenergan 12.5 mg Route: IVP; Site: left hand; ph 10:23 Follow up: Response: No adverse reaction; Nausea is decreased ph 09:32 Drug: Ativan 1 mg Route: PO; ph 10:23 Follow up: Response: No adverse reaction; Anxiety decreased ph 10:15 Drug: Tylenol 1000 mg Route: PO; ph 10:23 Follow up: Response: No adverse reaction; Medication administered at discharge. ph Disposition: 14:36 Co-signature as Attending Physician, Demarcus Mancilla MD I agree with the assessment and kdr plan of care. Disposition: 03/24/20 10:02 Discharged to Home. Impression: Anxiety disorder, unspecified. - Condition is Stable. - Discharge Instructions: Panic Attacks, Generalized Anxiety Disorder. - Prescriptions for promethazine 25 mg Oral Tablet - take 1 tablet by ORAL route every 6 hours As needed; 20 tablet. Ativan 0.5 mg Oral Tablet - take 1 tablet by ORAL route every 8 hours As needed; 10 tablet. - Medication Reconciliation Form, Thank You Letter, Antibiotic Education, Prescription Opioid Use form. - Follow up: Emergency Department; When: As needed; Reason: Worsening of condition. Follow up: Private Physician; When: 2 - 3 days; Reason: Recheck today's complaints, Continuance of care, Re-evaluation by your physician. - Problem is new. - Symptoms have improved. Signatures: Dispatcher [employer] EDMS Demarcus Mancilla MD MD [facility] Yana Harris RN RN ph Venkatesh Funez, PATRICK LINEN WORKER pm1 Julissa Matre RN sv Corrections: (The following items were deleted from the chart) 10:23 10:02 03/24/2020 10:02 Discharged to Home. Impression: Anxiety disorder, unspecified. ph Condition is Stable. Forms are Medication Reconciliation Form, Thank You Letter, Antibiotic Education, Prescription Opioid Use. Follow up: Emergency Department; When: As needed; Reason: Worsening of condition. Follow up: Private Physician; When: 2 - 3 days; Reason: Recheck today's complaints, Continuance of care, Re-evaluation by your physician. Problem is new. Symptoms have improved. pm1
== END 2020-03-24 10:23 | disposition home or self-care (01) ==
LOC: ER 07:29
DX: F41.9 Anxiety disorder, unspecified (principal); F31.9 Bipolar disorder, unspecified; G40.909 Epilepsy, unspecified, not intractable, without status epilepticus; Z98.82 Breast implant status; Z88.5 Allergy status to narcotic agent
CPT/HCPCS: 93005; 85025; 80048; 36415; 80320; 80329 ×2; 81025; 85610; 80076; 80307 ×8; 85730; 81003; 96375; 96374; 99284; J2550; J2405

== ENCOUNTER 2020-03-28 11:30 | Emergency (ER) | payer OTHER ==
[2020-03-28] MEDS ORDERED: LORAZEPAM 1 MG TABLET ONE (12:13)
--- OUTSIDE RECORDS SUMMARY | 2020-03-28 12:18 | XMS REPORT | Continuity of Care Document ---
:1970 Author Organization [employer] Care Team Providers Name Role Phone [employer] Unavailable Un available Problems Problem Status Onset [...] Active hydrochloride PO, Q6H, PRN 2018 [facility] 50 MG Oral Pain Score Tablet 1-3, X 5 day, # 20 tab, 0 Refill(s) Metronidazole 500 mg = 1 Active 500 MG Oral tab, PO, 2019 [facility] Tablet [id number], X 4 day, # 12 tab, 0 Refill(s) ciprofloxacin 500 mg = 1 Active 500 mg oral tab, PO, 2019 [facility] tablet [id number], X 4 day, # 8 tab, 0 Refill(s) Potassium Notes: (Same Inactive Chloride as: K-Dur 20) 2018 [facility] "Do Not Crush" Give with food and full glass of water For patients unable to swallow tablet, dissolve in one half glass of water. Allow about 2 minutes for the tablets to disintegrate. Stir before giving to prepare slurry and administer. Please exclude Patient’ s with feeding tube less than 14 Romanian (Dobhoff, J-tube etc) and pediatric and patients. Strattera 0.5 mg/kg, No Longer Route: PO, Active 2018 [facility] QAM, Dosing Weight 75, kg, Start date: 01/24/19 9:00:00 CDT, Duration: 30 day, Stop date: 02/22/19 9:00:00 CDT lithium Notes: Do not No Longer crush or chew. Active 2018 [facility] (Same as: Eskalith-CR) Risperdal Notes: (Same No Longer as: Risperdal) Active 2018 [facility] Strattera 1 mg, Route: No Longer PO, QPM, Active 2018 [facility] Dosing Weight 75, kg, Start date: 01/23/19 17:00:00 CDT, Duration: 30 day, Stop date: 02/21/19 17:00:00 CDT normal saline 1,000 mL, No Longer 0.9% IV 1,000 Rate: 100 [facility], Infuse over: 10 hr, Route: IV, Dosing Weight 75 kg, Total Volume: 1,000, Start date: 01/23/19 14:18:00 CDT, Duration: 30 day, Stop date: 02/22/19 14:17:00 CDT, 1.84, m2 Clonazepam Notes: (Same No Longer As: KlonoPIN) Active 2018 [facility] Flagyl Notes: (Same No Longer as: Flagyl) Active 2018 [facility] Take with food/ avoid alcohol Cipro Notes: May No Longer interfere Active 2018 [facility] w/enteral feedings - Take 1 hr before or 2 hrs after antacids, dairy pdt & minerals. On empty stomach. tramadol 50 mg = 1 tab, No Longer hydrochloride PO, Q6H, PRN Active 2018 [facility] 50 MG Oral Pain Score Tablet 1-3, 0 Refill(s) potassium 40 mEq, PO, Active chloride 20 mEq ONCE, 0 2018 [facility] oral tablet, Refill(s) extended release Metronidazole 500 mg, PO, No Longer 500 MG Oral [id number], 0 Active 2018 [facility] Tablet [Flagyl] Refill(s) Ciprofloxacin 500 mg, PO, No Longer 500 MG Oral [id number], 0 Active 2018 [facility] Tablet [Cipro] Refill(s) Potassium Notes: (Same Inactive Chloride as: K-Dur 20) 2019 [facility] "Do Not Crush" Give with food and full glass of water For patients unable to swallow tablet, dissolve in one half glass of water. Allow about 2 minutes for the tablets to disintegrate. Stir before giving to prepare slurry and administer. Please exclude Patient’ s with feeding tube less than 14 Romanian (Dobhoff, J-tube etc) and pediatric and patients. Pepcid Notes: (Same No Longer as: Pepcid) Active 2018 [facility] Strattera 0.5 mg/kg, PO, Active QAM, 0 2018 [facility] Refill(s) lithium 450 mg 450 mg = 1 Active oral tablet, tab, PO, 2018 [facility] extended Bedtime, # 60 release tab, 0 Refill(s) clonazePAM 0.5 0.5 mg = 1 Active mg oral tablet tab, PO, TID, 2018 [facility] # 90 tab, 0 Refill(s) Risperidone 0.5 0.5 mg = 1 Active MG Oral Tablet tab, PO, BID, 2018 [facility] [Risperdal] 0 Refill(s) Zosyn Notes: (Same No Longer as: Zosyn) Active 2018 [facility] Dosing based on Piperacillin component MEDICATION WASTE Product Size: 3375 mg Product Wasted: ___ mg Tramadol Notes: Not to No Longer exceed Active 2018 [facility] 400mg/day. (Same As: Ultram) normal saline 1,000 mL, No Longer 0.9% IV 1,000 Rate: 150 Active 2018 [facility] t mL ml/hr, Infuse over: 6.7 hr, Route: IV, Dosing Weight 75.994 kg, Total Volume: 1,000, Start date: 01/22/19 4:48:00 CDT, Duration: 30 day, Stop date: 02/21/19 4:47:00 CDT Ondansetron Notes: (Same No Longer as: Zofran) Active 2018 [facility] MEDICATION WASTE Product Size: 4 mg Product Wasted: ___ mg Glucagon 1 mg, Route: No Longer IM, Drug form: Active 2018 [facility] PDR/INJ, PRN, Dosing Weight 75.994, kg, PRN Blood Glucose Results, Start date: 01/22/19 4:47:00 CDT, Duration: 30 day, Stop date: 02/21/19 4:46:00 CDT Dextrose 50% 12.5 gm, 25 No Longer Syringe mL, Route: Active 2018 [facility] IVP, Drug Form: INJ, Dosing Weight 75.994, kg, PRN, PRN Blood Glucose Results, Start date: 01/22/19 4:47:00 CDT, Duration: 30 day, Stop date: 02/21/19 4:46:00 CDT Zofran Notes: (Same Inactive as: Zofran) 2018 [facility] MEDICATION WASTE Product Size: 4 mg Product Wasted: ___ mg NS (Bolus) IV 1,000 mL, Inactive 1,000 ml/hr, 2018 [facility] Infuse Over: 1 hr, Route: IV, 1,000, Drug form: INJ, ONCE, Priority: STAT, Dosing Weight 75.994 kg, Start date: 01/22/19 3:52:00 CDT, Stop date: 01/22/19 3:52:00 CDT Visipaque 320 Notes: (Same Inactive mg/mL as: 2019 [facility] injectable Visipaque). solution WASTE: F/P - Black; E - [employer] Zosyn Notes: (Same Inactive as: Zosyn) 2018 [facility] Dosing based on Piperacillin component MEDICATION WASTE Product Size: 3375 mg Product Wasted: ___ mg NS (Bolus) IV 1,000 mL, Inactive 1,000 ml/hr, 2018 [facility] Infuse Over: 1 hr, Route: IV, 1,000, Drug form: INJ, ONCE, Priority: STAT, Dosing Weight 75.994 kg, Start date: 01/22/19 0:44:00 CDT, Stop date: 01/22/19 0:44:00 CDT Zofran Notes: (Same No Longer as: Zofran) Active 2018 [facility] MEDICATION WASTE Product Size: 4 mg Product Wasted: ___ mg Saline Flush Notes: Same No Longer 0.9% as: BD Active 2018 [facility] Posiflush Sterile NS (Bolus) IV 1,000 mL, No Longer 1,000 ml/hr, Active 2018 [facility] Infuse Over: 1 hr, Route: [...] AGAP 8.6 10.0 - 01/26 ES 20.0 [facility] ELECTROLYT Chloride Lvl 107 95 - 109 01/26 [facility] ELECTROLYT CO2 27 24 - 32 01/26 [facility] ELECTROLYT Sodium Lvl 139 135 - 145 01/26 [facility] ELECTROLYT Potassium 3.6 3.5 - 5.1 01/26 [facility] Lv [facility] ELECTROLYT Creatinine 0.70 0.50 - 01/26 ES Lvl 1.40 [facility] ELECTROLYT Calcium Lvl 8.4 8.5 - 10.5 01/26 [facility] ELECTROLYT eGFR 103 01/26 Result Comment: The [facility] eGFR is calculated using the [...] Glucose Lvl 86 70 - 99 01/26 [facility] ELECTROLYT BUN 6 7 - 22 01/26 [facility] HEMATOLOGY Hgb 11.6 12.0 - 01/26 MH 16.0 [facility] HEMATOLOGY RBC 3.78 4.20 - 01/26 MH 5.40 /2018 [facility] HEMATOLOGY RDW 13.3 11.5 - 01/26 MH 14.5 [facility] HEMATOLOGY MCHC 34.0 32.0 - 01/26 MH 36.0 [facility] HEMATOLOGY WBC 6.3 3.7 - 10.4 01/26 [facility] HEMATOLOGY MCH 30.7 27.0 - 01/26 MH 31.0 [facility] HEMATOLOGY MCV 90.3 80.0 - 01/26 98.0 [facility] HEMATOLOGY Hct 34.2 36.0 - 01/26 MH 48.0 [facility] HEMATOLOGY Platelet 412 133 - 450 01/26 [facility] HEMATOLOGY MPV 7.5 7.4 - 10.4 01/26 [facility] CHEM PANEL eGFR 108 01/25 [facility] Comment: The [facility] eGFR is calculated using the [...] Calcium Lvl 8.5 8.5 - 10.5 01/25 [facility] CHEM PANEL AGAP 13.3 10.0 - 01/25 MH 20.0 [facility] CHEM PANEL CO2 24 24 - 32 01/25 [facility] CHEM PANEL Chloride Lvl 109 95 - 109 01/25 [facility] CHEM PANEL Glucose Lvl 81 70 - 99 01/25 [facility] CHEM PANEL BUN 2 7 - 22 01/25 [facility] CHEM PANEL Potassium 3.3 3.5 - 5.1 01/25 [facility] CHEM PANEL Creatinine 0.60 0.50 - 01/25 MH Lvl 1.40 [facility] CHEM PANEL Sodium Lvl 143 135 - 145 01/25 [facility] MOLECULAR C difficile Negative Negative 01/23 DIAGNOSTIC DNA (01/23/19 11:22 AM) [facility] CHEM PANEL Procalcitoni 2.76 0.00 - 01/23 Result n Lvl 0.10 Comment: [facility] Critical Result(s) called to A Levin at 01/23/2019 12:56 by cz. Read back OK. CHEM PANEL Lactic Acid 0.9 0.5 - 2.2 01/23 [facility] CHEM PANEL Magnesium 2.0 1.8 - 2.4 01/23 [facility] CHEM PANEL eGFR 115 01/23 Result Comment: The [facility] eGFR is calculated using the [...] PANEL CO2 23 24 - 32 01/23 [facility] CHEM PANEL Chloride Lvl 113 95 - 109 01/23 [facility] CHEM PANEL Potassium 3.1 3.5 - 5.1 01/23 [facility] CHEM PANEL Sodium Lvl 143 135 - 145 01/23 [facility] CHEM PANEL BUN 5 7 - 22 01/23 [facility] CHEM PANEL Creatinine 0.50 0.50 - 04 MH Lvl 1.40 /2018 [facility] CHEM PANEL Calcium Lvl 7.8 8.5 - 10.5 01/23 [facility] CHEM PANEL Glucose Lvl 83 70 - 99 01/23 [facility] CHEM PANEL AGAP 10.1 10.0 - 01/23 20.0 /2018 [facility] HEMATOLOGY Eosinophils 0.2 0.0 - 0.5 01/23 # [facility] HEMATOLOGY Monocytes # 0.8 0.0 - 0.8 01/23 [facility] HEMATOLOGY Neutrophils 5.5 1.5 - 8.1 01/23 [facility] HEMATOLOGY Lymphocytes 2.2 1.0 - 5.5 01/23 [facility] HEMATOLOGY Basophils 0.1 0.0 - 1.0 01/23 [facility] HEMATOLOGY Segs 63.6 45.0 - 01/23 75.0 /2018 [facility] HEMATOLOGY Monocytes 8.9 2.0 - 12.0 01/23 [facility] HEMATOLOGY Eosinophils 2.3 0.0 - 4.0 01/23 [facility] HEMATOLOGY RBC Morph Normal 01/23 (01/23/19 5:50 AM) [facility] HEMATOLOGY Plt Morph Normal 01/23 (01/23/19 5:50 AM) [facility] HEMATOLOGY Lymphocytes 25.1 20.0 - 01/23 40.0 [facility] HEMATOLOGY RDW 13.1 11.5 - 01/23 14.5 /2018 [facility] HEMATOLOGY Platelet 327 133 - 450 01/23 [facility] HEMATOLOGY MPV 7.7 7.4 - 10.4 01/23 [facility] HEMATOLOGY WBC 8.6 3.7 - 10.4 01/23 [facility] HEMATOLOGY Hgb 10.0 12.0 - 01/23 Result MH 16.0 Comment: [facility] Notified Raghavednra 01/23/2019 07:32 by smt. HEMATOLOGY MCHC 34.6 32.0 - 04 36.0 /2018 [facility] HEMATOLOGY Hct 28.7 36.0 - 01/23 48.0 /2018 [facility] HEMATOLOGY MCV 87.8 80.0 - 01/23 98.0 /2018 [facility] HEMATOLOGY MCH 30.4 27.0 - 04 31.0 [facility] HEMATOLOGY RBC 3.27 4.20 - 04 5.40 /2019 [facility] Culture: Normal Enteric Pam Isolated 01/22 Stool No Salmonella Or Shigella Isolated [facility] No Campylobacter Isolated CHEM PANEL Lactic Acid 2.4 0.5 - 2.2 01/22 Lvl [facility] CHEM PANEL Lactic Acid 3.0 0.5 - 2.2 01/22 Lvl [facility] URINE AND UA Spec Grav 1.014 <=1.030 01/22 STOOL [facility] URINE AND UA pH 6.0 5.0 - 8.0 01/22 STOOL [facility] URINE AND UA Protein Negative Negative 01/22 STOOL (01/22/19 2:14 AM) [facility] Glucose Negative Negative 01/22 STOOL *NA* /2018 [facility] (01/22/19 2:14 AM) URINE AND UA Ketones Negative Negative 01/22 STOOL *NA* /2018 [facility] (01/22/19 2:14 AM) URINE AND UA Bili Negative Negative 01/22 STOOL *NA* [facility] (01/22/19 2:14 AM) URINE AND UA Nitrite Negative Negative 01/22 STOOL (01/22/19 2:14 AM) /2018 [facility] URINE AND UA <=1.0 0.1 - 1.0 01/22 STOOL Urobilinogen mg/dL [facility] URINE AND UA Sq Epi Occasional Few /LPF 01/22 STOOL /LPF /2018 [facility] URINE AND UA Leuk Est Negative Negative 01/22 STOOL (01/22/19 2:14 AM) /[facility] Blood Negative Negative 01/22 STOOL (01/22/19 2:14 AM) /2018 [facility] URINE AND UA Mucus Few /LPF None Seen 01/22 STOOL /LPF [facility] URINE AND UA RBC <1 0 - 2 01/22 STOOL [facility] URINE AND UA Hyal Cast 25 0 - 2 01/22 STOOL [facility] URINE AND UA WBC 2 0 - 5 01/22 STOOL [facility] URINE AND UA Color Light Yellow Yellow 01/22 STOOL *NA* [facility] (01/22/19 2:14 AM) URINE AND UA Turbidity Clear Clear 01/22 STOOL (01/22/19 2:14 AM) /2018 [facility] est METAL Terril Lvl 0.90 0.50 - 01/22 1.50 /2018 [facility] BLOOD BANK ABO/Rh A POS 01/22 RESULTS /2018 [facility] BLOOD BANK Antibody Negative 01/22 RESULTS Scrn (01/22/19 12:01 AM) /2018 [facility] CARDIAC Troponin-I <0.02 0.00 - 01/22 ENZYMES 0.40 [facility] CARDIAC Total CK 49 12 - 191 01/22 ENZYMES /2018 [facility] CHEM PANEL Bili Total 0.6 0.2 - 1.3 01/22 /2018 [facility] CHEM PANEL Alk Phos 100 39 - 136 01/22 /2018 [facility] CHEM PANEL Albumin Lvl 4.0 3.5 - 5.0 01/22 [facility] CHEM PANEL AST 17 0 - 37 01/22 /2018 [facility] CHEM PANEL ALT 25 0 - 65 01/22 [facility] CHEM PANEL Total 8.1 6.4 - 8.4 01/22 Protein /2018 [facility] CHEM PANEL B/C Ratio 20 6 - 25 01/22 /2018 [facility] CHEM PANEL A/G Ratio 1.0 0.7 - 1.6 01/22 /2018 [facility] CHEM PANEL Globulin 4.1 2.7 - 4.2 01/22 /2018 [facility] CHEM PANEL Procalcitoni 6.90 0.00 - 01/22 Result n Lvl 0.10 Comment: [facility] Critical Result(s) called to Eliana Vega at 01/22/2019 00:50 by VV. Read back OK. ENDOCRINOL S Preg Negative Negative 01/22 OGY *NA* /2018 [facility] (01/22/19 12:01 AM) HEMATOLOGY Eosinophils 0.1 0.0 - 0.5 01/22 MH # /2019 [facility] HEMATOLOGY Monocytes # 0.7 0.0 - 0.8 01/22 /2018 [facility] HEMATOLOGY Basophils # 0.0 0.0 - 0.2 01/22 /2018 [facility] HEMATOLOGY Basophils 0.0 0.0 - 1.0 01/22 /2018 [facility] HEMATOLOGY Eosinophils 0.9 0.0 - 4.0 01/22 /2018 [facility] HEMATOLOGY Neutrophils 8.6 1.5 - 8.1 01/22 # /2019 [facility] HEMATOLOGY Lymphocytes 0.6 1.0 - 5.5 01/22 MH # /[address] [facility] Segs 86.5 45.0 - 01/22 MH 75.0 /[address] [facility] Lymphocytes 5.7 20.0 - 01/22 MH 40.0 /[address] [facility] Monocytes 6.9 2.0 - 12.0 01/22 /[address] [facility] WBC 9.9 3.7 - 10.4 01/22 /[address] [facility] MCHC 32.8 32.0 - 01/22 MH 36.0 /[address] [facility] RDW 13.6 11.5 - 01/22 14.5 /[address] [facility] Platelet 443 133 - 450 01/[address] [facility] MPV 7.3 7.4 - 10.4 01/[address] [facility] Hgb 14.0 12.0 - 01/22 16.0 /[address] [facility] RBC 4.85 4.20 - 01/22 5.40 /[address] [facility] Hct 42.7 36.0 - 01/22 MH 48.0 /[address] [facility] MCH 29.0 27.0 - 01/22 31.0 /[address] [facility] MCV 88.2 80.0 - 01/22 98.0 /[address] [facility] INR 0.96 0.85 - 01/22 MH 1.17 /[address] [facility] PT 12.6 12.0 - 01/22 14.7 /[address] [facility] PTT 25.9 22.9 - 01/22 35.8 /2018 [facility] Pathology Reports No Data Provided [...] dislocation of the left ankl e. SL: [id number] ED Abdomen/Pelvis IV Clinical Indication: Diarrhe a low blood pressure, abdominal pain. 01/22/2019 [facility] contrast only CT Comparison: None TECHNIQUE: Sequential [...] Mild sigmoid diverticulosis without diverticu litis. SL: [id number] Chest 1view DX Clinical Indication: Undifferentiated sepsis. [facility] Comparison: None FINDINGS: AP view of the chest submitted for interpretatio n. Lungs are clear. Heart size is normal. Central pulmonary vasculat ure appears normal. No effusion. No pneumothorax. No radiographically apparent acute osseous abnor mality. IMPRESSION: 1. No radiographically apparent acute cardiopulm onary process. SL: [id number] Consultation Notes No Data Provided for This Section Discharge Summaries No Data Provided for This Section History and Physicals No Data Provided for This Section Vital Signs Vital Sign Value Date Comments Source Temperature Oral (F) 98.6 F 01/28/[facility] Systolic (mm Hg) 137 01/28/2019 [facility] t Diastolic (mm Hg) 84 01/28/2019 [facility] st Heart Rate 82 01/28/2019 [facility] Respitory Rate 18 01/28/2019 [facility] Systolic (mm Hg) 113 01/27/2019 [facility] t Diastolic (mm Hg) 72 01/27/2019 [facility] st Heart Rate 77 01/27/2019 [facility] Respitory Rate 18 01/27/2019 [facility] Temperature Oral (F) 98.5 F 01/27/2019 [facility] Systolic (mm Hg) 108 01/27/2019 [facility] t Diastolic (mm Hg) 71 01/27/2019 [facility] st Temperature Oral (F) 98.5 F 01/27/2019 [facility] Heart Rate 86 01/27/2019 [facility] Respitory Rate 18 01/27/2019 [facility] Height 157.48 cm 01/22/2019 [facility] BMI Calculated 30.24 01/22/2019 [facility] Weight 75 01/22/2019 [facility] Weight 75.994 01/22/2019 [facility] Encounters Location Location Encounter Encounter Reason Attending ADM CO Stat us Source Details Type Number For Provider Date Date [facility] [id number] Ed 01/22 01/28 Yonis Sandovalni /2018 [facility] Procedures No Data Provided for This Section Assessment and Plan Assessment and Plan Date Source Extracted from:Title: Discharge Summary 01/28/2019 [facility] Author: Axel Arriaga MD Date: 01/26/19 Discharge [...] abdominal pain, presented to the ER from [facility] for evaluation of hypotension. She complains of [...] and recommended to be transferred back to [facility]. Physical Exam: Vitals Tmp(F) Pulse BP [...] MD on 01/27/2019 15:26 Patient was to [facility] denied her. I spoke to physician at [facility] who has accepted patient. Extracted from:Title: Progress Note Author: Axel Arriaga MD Date: 01/25/19 48 year old female Admitted with hypotension, abdominal pain and sepsis. Was at [facility] for exacerbation of depression/bipolar disorder. Ct abd/pelvis showed mild enterocolitis . CXR and UA are clear.No leucocytosis. But lactic acid and pro-calcitonin elevated and patient was significantly hypotensive on admission. Patient is currently on IV antibiotics and IV fluids. Colitis improving Hypotension secondary to colitis improved with IV fluids Depression and bipolar disorder with re cent admission at [facility] with concern for psychosis Hypokalemia secondary to diarrhea treated Anemia of chronic disease Plan: Will DC IV fluids, will advance diet to regular diet We will continue with Cipro and Flagyl We will replacepotassiump.o. Discussed with psych response team. The ymentioned that patient is having some delusions but otherwiseno suicidal homicidal ideations. They haveclearthe patient to go back to [facility] rehab once medica lly cleared. Exclusionary paperwork is i n the chart to be signed bythe physician once medically cleared. Discussed in MDR's: Likely dischargeto morrowif tolerating regular diet and labs arewnl Extracted from:Title: History and Physical Author: Ed Demarco DO Date: 01/22/19 48 y/o female with history of bipolar di sorder currently admitted at [facility], depression and abdominal hernia brought in via EMS from [facility] for evaluation of hypotension. 1.Severe sepsis(R65.20) Hypotensive [...] History Date Source Social History TypeResponse 01/22/2019 [facility] Smoking Status Light tobacco smoker; Exposure to Tobacc o Smoke None; Cigarette Smoking Last 365 Days No; Reg Smoking Cessation Counseling No entered on: 01/22/19 Family History No Data Provided for This Section Advance Directives No Data Provided for This Section Functional Status No Data Provided for This Section
--- OUTSIDE RECORDS SUMMARY | 2020-03-28 12:20 | XMS REPORT | Continuity of Care Document ---
:1970 Author Organization [facility] t Address [address] [place] [address] Care Team Providers Name Role Phone UNKNOWN Primary Care Physician Unavailable Dav Attending Clinician LOS Attending Clinician Unavailable Dav Admitting Clinician LOS Admitting Clinician Unavailable Problems Condition Condition Condition Status Onset Resolution Last Treating Co mments Source Name Details Category Date Date Treatment Clinician Date LOW PB Diagnosis Active 2019-01-22 3-30 01:52:00 [facility] LOW PB 00:00: st 00 Active 01/21/2019 [facility] INFECTIOUS Diagnosis Active 2019-02-06 GASTROENTE - 08:58:00 [facility] AND 00:[facility]: st COLITIS INFECTIOUS 00 GASTROENTE RITIS AND COLITIS Active 01/21/2019 [facility] INFECTIOUS Diagnosis Active 2019-02-06 GASTROENTE 08:58:[address] [place] [facility] COLITIS, INFECTIOUS GASTROENTE RITIS AND COLITIS, Active [facility] Allergies, Adverse Reactions, Alerts Allergy Allergy Status Severity Reaction(s) Onset Inactive Treating Comm ents Source Name Type Date Date Clinician Jm Lemoserga Active Wicho blunt n [facility] Social History Smoking Status Start Date Stop Date Source Social History 2019-01-22 05:00:12 [facility] Medications Ordered Filled Start Stop Current Ordering [...] 4-04 tab, PO, e oral tablet 17:35: [id number], X st 00 4 day, # 8 [...] s with feeding tube less than 14 Lithuanian (Dobhoff, J-tube etc) and pediatric and patients. [...] mg = 1 hydrochlori 01-23 tab, PO, [facility] de 50 MG 14:20: Q6H, PRN st Oral Tablet 00 Pain Score 1-3, 0 Refill(s) potassium Yes 40 mEq, chloride 20 01-23 PO, ONCE, mEq oral 14:20: 0 st tablet, 00 Refill(s) extended release Metronidazo No 500 mg, le 500 MG 01-23 PO, [facility] Oral Tablet 14:20: ABXQ8H, 0 s t [Flagyl] 00 Refill(s) Ciprofloxac No 500 mg, in 500 MG 01-23 PO, Oral Tablet 14:20: [id number], 0 st [Cipro] 00 Refill(s) Potassium No Notes: Chloride 01-23 (Same as: e 14:17: K-Dur 20) "Do Not Crush" Give with food and full glass of water For patients unable to swallow tablet, dissolve in one half glass of water. Allow about 2 minutes for the tablets to disintegra te. Stir before giving to prepare slurry and administer . Please exclude Patient s with feeding tube less than 14 Lithuanian (Dobhoff, J-tube etc) and pediatric and patients. Pepcid No Notes: 01-22 (Same as: 22:00: Pepcid) [...] 01-22 to exceed 15:03: 400mg/day. (Same As: Ultra) normal No 1,000 mL, saline 0.9% 01-22 [...] 12.5 gm, 50% Syringe 01-22 25 mL, [facility] e 09:47: Route: st 00 IVP, [...] Temperature Oral (F) 2019-01-28 01:16:00 98.6 F [facility] Systolic (mm Hg) 2019-01-28 01:16:00 [facility] Diastolic (mm Hg) 2019-01-28 01:16:00 [facility] Heart Rate 2019-01-28 01:16:00 [facility] Respitory Rate 2019-01-28 01:16:00 [facility] Systolic (mm Hg) 2019-01-27 20:42:00 [facility] Diastolic (mm Hg) 2019-01-27 20:42:00 [facility] Heart Rate 2019-01-27 20:42:00 [facility] Respitory Rate 2019-01-27 20:42:00 [place] [place] Temperature Oral (F) 2019-01-27 20:42:00 98.5 F [facility] Systolic (mm Hg) 2019-01-27 17:00:00 [facility] Diastolic (mm Hg) 2019-01-27 17:00:00 [facility] Temperature Oral (F) 2019-01-27 17:00:00 98.5 F [facility] Heart Rate 2019-01-27 17:00:00 [facility] Respitory Rate 2019-01-27 17:00:00 [facility] Height 2019-01-22 14:35:00 157.48 cm [facility] BMI Calculated 2019-01-22 14:35:00 [facility] Weight 2019-01-22 14:35:00 [facility] Weight 2019-01-22 04:34:00 [facility] Procedures This patient has no known procedures. Encounters Start End Encounter Admission Attending Care Care Encounter Source Date/Time Date/Time Type Type Clinicians Facility Department ID 2019-01-22 Inpatient E [facility] [id number] 04:39:00 2019-01-22 2019-01-28 Inpatient SHADIA Angel [id number] MH 04:33:00 04:40:00 Yonis 00 [facility] 2019-01-21 2019-01-27 Outpatient Dav [facility] [id number] 23:33:00 23:40:00 Ed 00 2018-02-21 2018-02-20 [id number] 14:48:00 13:18:00 [facility] Results Test Description Test Time Test Comments [...] = Expiration Dt) 10-24-2020 N Thyroid Stimulating Ockobfn6496-34-84 08:35:16 Test Item Value Reference Range Interpretation Comments TSH (test code = TSH) 1.170 mIU/mL 0.270-4.200 Lipid Iijuj8109-31-07 08:21:19 Test Item Value Reference Range Interpretation Comments Cholesterol Total 254 mg/dL 0-200 H RISK OF HE ART (test code = DISEASEPublishe d by Cholesterol Total) [place] [employer] Cathie lyte Optimal Borderl ine Increased RiskC HOL [...] calculation is LDL/HDL Ratio=L DL Calc/HDL Chol YEOIIWMOYHHG5151-90-97 08:24:008.6MS[facility] HospitalGbzjrtyfjYYPYAHWAMLDS0819-22-01 08:24:46316 WlxgkvetrKSLNQNYYFOLR6346-32-18 08:24:0027[facility] HospitalCppsdqyufZDGSPCUGNRAZ3463-97-53 08:24:48685SUSan [facility] HospitalTnirtieciKZNQNSWGPOGW3390-36-36 08:24:003.[address] [place] [address] TQGUQZMRWYWB7973-14-96 08:24:000.70[facility] HospitalRjwvcbxuhRFGNMIJPFMZU6041-41-03 08:24:00 8.4[facility] HospitalConvtjfxcGCQJNPMFUOJZ2629-55-02 08:24:87710YBSan [facility] HospitalELECTROLYTES 2019-01-26 08:24:0086[facility] HospitalGaxbqmueiZJEPOOEKOKHI0099-67-18 08:24:006[facility] FRMOYQDASZ7207-01-40 08:24:0011.6MS[facility] HospitalVkeehlylbVMESIFXZST5795-99-94 08:24:003.78[facility] HospitalTlwbarapzIFVWNPCRKC9763-28-87 08:24:0013.3MS[facility] HospitalNzhvubymdAROSWEOBRU2124-71-73 08:24:0034.0[facility] HospitalOvecnjmeqCVNIQBEXHN0347-11-24 08:24:006.[address] [place], [place] [address]HEMATOLOGY 2019-01-26 08:24:00 Test Item Value Reference Range Interpretation Comments MCH (test code = MCH) 30.7 pg 27.0-31.0 [facility] HospitalXydoymkkhBNNDNDQEMA2788-58-49 08:24:[address] [place], [place] [address]GyuschishGOQYTVFNAS3010-05-13 08:24:[address] [place], [place] [address]NvzxieanmGBQKXOPZDY2420-79-65 08:24:76316HYSan [facility] HospitalHEMATOLOGY 2019-01-26 08:24:007.5[facility] HospitalCHEM JJPPS9245-11-50 09:14:26267MES[facility] CHEM UVMZK7460-02-36 09:14:008.5[facility] MEEER5318-20-38 09:14:0013.3[facility]CHE[facility] CRWSL5438-30-16 09:14:0024MH [facility]CHE[facility] KYDSK4972-57-60 09:14:00523VR [facility] PEAQA9813-76-18 09:14:0081[facility] PANEL 2019-01-25 09:14:002[facility]CHE[facility] WZAXW1786-21-54 09:14:003.3[facility] NWRKE3713-63-41 09:14:000.60[facility] EYMJZ7430-34-49 09:14:83545ZW SouthwestMOLECULAR PYSEDYPKIJ4703-51-83 16:22:00Negative (01/23/19 11:22 AM) [facility] EHGQF5085-61-87 15:42:002.76[facility] BITBM1489-77-24 12:32:000.9[facility] AIYSH3769-29-39 10:50:002.0[facility] SouthwestCHEM PANEL 2019-01-23 10:50:68853PN [facility] XIAMS4825-95-29 10:50:0023[facility] CHE[facility] ASYZO8863-36-42 10:50:15007DT [facility] QXGMK8128-07-04 10:50:003.1[facility] VJTGS7388-50-88 10:50:83184YN [facility] CEYYJ5760-43-89 10:50:005MH [facility] LGPKG0468-41-04 10:50:000.50[facility] PANEL 2019-01-23 10:50:007.8[facility] VUYSV5606-58-44 10:50:0083[facility] CHE[facility] GHZST9141-58-89 10:50:0010.1MH NvyytcsvjPQZHACIURX5432-85-72 10:50:000.2MH EmktoehppZBNVISTUAV4620-42-31 10:50:000.8MH DkkbdthgdJDUGCNNUYP3051-37-26 10:50:005.5MH EgwhzhiqyKSWBPOIAOI0310-11-51 10:50:002.2[facility] SouthwestHEMATOLOGY 2019-01-23 10:50:000.1MH NhtqiwhsgAXAQVWTQSZ5044-41-19 10:50:0063.6[facility] UOIOLITJBT0795-67-38 10:50:008.9MH XnwpgkequIDBNICPUZG5541-70-99 10:50:002.3MH JmvvnqrjfWFOPNJAFBX2044-74-37 10:50:00Normal (01/23/19 5:50 AM)[facility] RIVRAAFJHW9343-50-46 10:50:00Normal (01/23/19 5:50 AM)[facility]Y 2019-01-23 10:50:0025.1MSelma [facility] HospitalPjbuzrnfsJZNEHEQSXB8778-41-57 10:50:0013.1[facility] MIGEBDQYSJ7669-56-24 10:50:84456LQSan [facility] Marine HospitalEhqmlgqeoTEIBIJMSTW7334-42-34 10:50:007.7[facility] HospitalGftpjmxzkRISVTGDDKG9983-59-06 10:50:008.6MS[facility] HospitalYwvigtrwjZWEJUQUWCO0442-02-12 10:50:0010.0[facility] HospitalYrinhyaesNBCYTJTMRB7884-34-79 10:50:0034.6MS[facility] HospitalHEMATOLOGY 2019-01-23 10:50:0028.7[facility] HospitalVmbmolvorUDYRCWWFTQ9693-49-80 10:50:0087.8[facility] YQRQPIKVCR8273-27-84 10:50:00 Test Item Value Reference Range Interpretation Comments MCH (test code = MCH) 30.4 pg 27.0-31.0 [facility] HospitalZusijswyjCVNESVCZLC0600-24-28 10:50:003.27[facility] HospitalCHEM KXEOE5250-66-33 11:32:002.4[facility] HospitalCHE[facility] KNLTT4319-49-47 09:04:003.0[facility] AND YJXLV8947-51-23 07:14:00 Test Item Value Reference Range Interpretation Comments UA Spec Grav (test code = UA Spec 1.014 1 Grav) [facility] AND GKSEZ9678-23-92 07:14:00 Test Item Value Reference Range Interpretation Comments UA pH (test code = UA pH) 6.0 1 5.0-8.0 [facility] USIJS0600-06-79 07:14:00Negative (01/22/19 2:14 AM)[facility] DUCCJ2059-85-36 07:14:00Negative *NA*(01/22/19 2:14 AM)[facility] BPCDX8840-28-18 07:14:00Negative *NA*(01/22/19 2:14 AM)[facility] AND FFBTG5078-37-61 07:14:00Negative *NA*(01/22/19 2:14 AM)[facility] MWEMS8275-62-37 07:14:00Negative (01/22/19 2:14 AM)[facility] BKJHB2553-49-39 07:14:00Negative (01/22/19 2:14 AM)[facility] MXSCF1247-87-28 07:14:00Negative (01/22/19 2:14 AM)[facility] WSQUR3116-65-21 07:14:00<1[facility] STOOL 2019-01-22 07:14:0025 [facility] EGOZS5913-61-00 07:14:002MH [facility] URINE AND DJLDC2581-77-86 07:14:00Light Yellow *NA*(01/22/19 2:14 AM)[facility] URINE AND NZPTJ4099-43-93 07:14:00Clear (01/22/19 2:14 AM)[facility] HospitalMETAL 2019-01-22 05:16:000.90[facility] HospitalBLOOD BANK TVKNEPG5605-67-06 05:01:00Negative (01/22/19 12:01 AM)[facility] HospitalCARDIAC RGDBCVY0196-84-03 05:01:00<0.02[facility] HeartCARDIAC CTAOCZK1596-46-51 05:01:0049[facility] HospitalCHEM MIKHG0260-50-11 05:01:000.6[facility] HeartCHE[facility] ETXOQ4348-51-12 05:01:28872YI SouthwestCHEM PANEL 2019-01-22 05:01:004.0 [facility] LTWDP0764-02-85 05:01:0017[facility] CHEM IYICX9647-09-84 05:01:0025[facility] HospitalCHEM BDYOV5972-03-01 05:01:008.1[facility] HeartCHE[facility] DRKUH4572-25-15 05:01:00 Test Item Value Reference Range Interpretation Comments B/C Ratio (test code = B/C Ratio) 20 1 6-25 [facility] RTYGF8932-52-84 05:01:00 Test Item Value Reference Range Interpretation Comments A/G Ratio (test code = A/G Ratio) 1.0 1 0.7-1.6 [facility] EJNLO4734-02-72 05:01:004.1MSelma [facility] HospitalCHEM XIHGE9060-92-34 05:01:006.90[facility] HospitalRpjtmeuehWXRWDISXJFQHH7108-34-20 05:01:00Negative *NA*(01/22/19 12:01 AM)[facility] HospitalCgascbiszVMVRUPJOID6140-76-06 05:01:000.1MH SouthwestHEMATOLOGY 2019-01-22 05:01:000.7[facility] HospitalFbeddogdaSEHTDLKIOF1772-81-23 05:01:000.0[facility] WGIANHGECV7042-03-05 05:01:000.0[facility] HospitalMotbgkuglWYSSXYSMXQ6038-96-67 05:01:000.9[facility] HospitalRkmpdmutiYFIKHSTRST6952-29-25 05:01:008.6MS[facility] HospitalBvqqffkhxMPTMHNVRCX5847-59-83 05:01:000.6MS[facility] HospitalSjgyzviwoUQCEXHGMOL5340-62-63 05:01:0086.5[facility] HospitalHEMATOLOGY 2019-01-22 05:01:005.7[facility] HospitalNnijpaulnOPXBPPAJYB6749-94-29 05:01:006.9[facility] SMIKWOFHZO6123-04-55 05:01:009.9[facility] HospitalLinzojidoKRAYRFCCQJ0116-27-72 05:01:0032.8[facility] HospitalNscibwprzCVGINAIYFD9135-21-07 05:01:0013.6MS[facility] HospitalOziabfvxzWFCUGUKFFC2156-77-09 05:01:52542QYSan [facility] HospitalSrcpaufujNSZHSVTRHW9004-23-70 05:01:007.3MS[facility] HospitalHEMATOLOGY 2019-01-22 05:01:0014.0[facility] HospitalNkmnanvqnSBBBTTUFBZ1573-67-03 05:01:004.85[facility] AJUPPEENBY3822-28-28 05:01:0042.7[facility] HospitalEpoxvvmzfHBJTEWQLLJ2765-21-47 05:01:00 Test Item Value Reference Range Interpretation Comments MCH (test code = MCH) 29.0 pg 27.0-31.0 [facility] HospitalEllswakpbKXQNKARVEZ7751-41-32 05:01:0088.2MS[facility]ma [facility] HospitalScxsmvetdPRTVIJNCJB5095-56-33 05:01:00 Test Item Value Reference Range Interpretation Comments INR (test code = INR) 0.96 1 0.85-1.17 [facility] HospitalQvcahnmqiACWKZVNUAE1829-53-60 05:01:00 Test Item Value Reference Range Interpretation Comments PT (test code = PT) 12.6 s 12.0-14.7 MH YosbgtehjCLYGVRECFW0876-61-39 05:01:00 Test Item Value Reference Range Interpretation Comments PTT (test code = PTT) 25.9 s 22.9-35.8 [facility]DfzolwssyLBP8R7338-84-30 14:36:00 Test Item Value Reference Range Interpretation Comments Amphetamine (test POSITIVE Negative A For diagno stic code = AMPH) purposes only, positive result s should always b e assessedin conjunctionwith the patient's medic al history,clinica l examination and otherfindings.T o fulfill legal requirements, a more specific altern ate chemical method must be used inorder to obtain a Confirmed cathie lytical result. GC/MS i s the preferred [...] 0.00-0.01 N code = ETOHU) Comprehensive Metabolic Rixmf4634-89-51 14:36:00 Test Item Value Reference Range Interpretation [...] the National Kidney Foundation,http ://nkd ep.nih.gov Urinalysis Yuzwpszf9951-58-12 14:32:00 Test Item Value Reference Range Interpretation Comments Color (test code = COLOR) Yellow Yellow,Straw,Pl N yellow Clarity (test code = Clear Clear N CLAR) Specific [place] (test 1.024 1.001-1.035 N code = SPGR) [...] code = Few /HPF BACT) CBC with Mmgfzstcotzx7772-06-91 14:21:00 Test Item Value Reference Range Interpretation [...] code = ALYMPH) 3.0 K/cumm 0.5-4.6 N [place] Abs (test code = AMONO) 0.5 K/cumm 0.0-1.2 N Eos Abs (test code = AEOS) 0.19 K/cumm 0.00-0.74 N Baso Abs (test code = ABASO) 0.1 K/cumm 0.00-0.21 N
[2020-03-28] MEDS ORDERED: LORazepam 2 MG/ML VIAL ONE (12:47)
[2020-03-28] MEDS ORDERED: PROMETHAZINE INJ 25 MG/ML AMP ONE (12:47)
[2020-03-28 13:04] LABS: Absolute Lymphocytes (CBC) 1.6 K/uL (0.7-4.9); Basophils % 0.4 % (0-1.3); Hematocrit 38.2 % (36.0-45.0); Lymphocytes % 15.4 % (15.3-44.8); MPV 7.3 fL (7.6-11.3); RBC Red Blood Cell Count 4.49 M/uL (3.86-4.86)
[2020-03-28 13:08] LABS: Barbiturates NEGATIVE (NEGATIVE); Benzodiazepines NEGATIVE (NEGATIVE); Cocaine NEGATIVE (NEGATIVE); METHAMPHETAM NEGATIVE (NEGATIVE); Methadone NEGATIVE (NEGATIVE); Opiates NEGATIVE (NEGATIVE); Phencyclidine NEGATIVE (NEGATIVE); THC Cannibis NEGATIVE (NEGATIVE)
[2020-03-28 13:08] LABS: Protime INR 0.97
[2020-03-28 13:19] LABS: ALT/SGPT 18 U/L (12-78); AST/SGOT 14 U/L (15-37); Albumin 3.7 g/dL (3.4-5.0); Alkaline Phosphatase 89 U/L (45-117); BUN Blood Urea Nitrogen 14 mg/dL (7-18); Bicarbonate 24 mmol/L (21-32); Bilirubin Direct < 0.1 mg/dL (0-0.2); Bilirubin Total 0.4 mg/dL (0.2-1.0); Glucose Level 97 mg/dL (74-106); Potassium 3.6 mmol/L (3.5-5.1); Protein, Total 7.4 g/dL (6.4-8.2); Sodium Level 140 mmol/L (136-145)
[2020-03-28 13:24] LABS: Urine Blood NEGATIVE (NEG); Urine Glucose NEGATIVE (NEG); Urine Protein NEGATIVE (NEG)
[2020-03-28] MEDS ORDERED: METOCLOPRAMIDE 10 MG/2mL INJ ONE (14:07)
[2020-03-28] MEDS ORDERED: NA CHLORIDE 0.9% 500 ML ONE (14:07)
[2020-03-28] MEDS ORDERED: DIPHENHYDRAMINE 50 MG/ML VIAL ONE (14:07)
[2020-03-28] MEDS ORDERED: ONDANSETRON 4 MG/2 ML VIAL ONE ×2 (14:54→15:00)
--- NOTE | 2020-03-28 15:12 | ER ---
Nurse's Notes [facility] Name: Tiffany Quinn Age: 49 yrs Sex: Female : 1970 Arrival Date: 03/28/2020 Time: 11:34 Bed 19 Private MD: Diagnosis: Anxiety disorder, unspecified Presentation: 03/28 11:40 Chief complaint: EMS states: Pt was here for Anxiety on the 24 of March. Today, she's ca1 here for anxiety, reports difficulty breathing with anxiety, and nausea. BP 162/88, P122, R18, 97%RA. Coronavirus screen: Proceed with normal triage. Patient denies a cough. Patient denies shortness of breath or difficulty breathing. Patient denies measured and/or subjective temperature greater than 100.4F prior to today's visit. Patient denies travel on a cruise ship or to a country the [facility] currently lists as an affected area. Patient denies contact with known and/or suspected case of COVID-19. Ebola Screen: Patient negative for fever greater than or equal to 101.5 degrees Fahrenheit, and additional compatible Ebola Virus Disease symptoms Patient denies exposure to infectious person. Patient denies travel to an Ebola-affected area in the 21 days before illness onset. No symptoms or risks identified at this time. Initial Sepsis Screen: Does the patient meet any 2 criteria? No. Patient's initial sepsis screen is negative. Does the patient have a suspected source of infection? No. Patient's initial sepsis screen is negative. Risk Assessment: Do you want to hurt yourself or someone else? Patient reports no desire to harm self or others. Onset of symptoms was March 28, 2020. 11:40 Method Of Arrival: EMS: [facility] ca1 11:40 Acuity: MANUEL 3 ca1 Triage Assessment: 11:45 General: Appears in no apparent distress. uncomfortable, Behavior is anxious. Pain: ca1 Denies pain. EENT: No signs and/or symptoms were reported regarding the EENT system. Neuro: Level of Consciousness is awake, alert, obeys commands, Oriented to person, place, time, situation. Cardiovascular: Heart tones S1 S2 present Capillary refill < 3 seconds Patient's skin is warm and dry. Respiratory: Airway is patent Respiratory effort is even, unlabored, Respiratory pattern is regular, symmetrical, Breath sounds are clear bilaterally. GI: Abdomen is round non-distended, Bowel sounds present X 4 quads. Abd is soft and non tender X 4 quads. Reports nausea. : No signs and/or symptoms were reported regarding the genitourinary system. Derm: Skin is intact, is healthy with good turgor, Skin is pink, warm \T\ dry. Musculoskeletal: Circulation, motion, and sensation intact. Capillary refill < 3 seconds. CLIENT SERVICES ASSOCIATE: 11:54 LMP N/A - Post-menopause ca1 Historical: - Allergies: 11:54 Stadol; ca1 11:54 Toradol; ca1 - PMHx: 11:54 ADD/ADHD; Bipolar disorder; Hernia; Migraines; PSYCH PROBLEMS; Schizophrenia; unsure if ca1 she is; Seizures; - PSHx: 11:54 Hernia repair; breast implants; Cholecystectomy; ca1 - Immunization history:: Adult Immunizations up to date. - Social history:: Smoking status: Patient denies any tobacco usage or history of. Screenin:45 Abuse screen: Denies threats or abuse. Denies injuries from another. Nutritional ca1 screening: No deficits noted. Tuberculosis screening: No symptoms or risk factors identified. Fall Risk None identified. Assessment: 11:45 Reassessment: see triage notes. ca1 12:56 Reassessment: Patient appears in no apparent distress at this time. No changes from ca1 previously documented assessment. Patient and/or family updated on plan of care and expected duration. Pain level reassessed. Patient is alert, oriented x 3, equal unlabored respirations, skin warm/dry/pink. 13:55 Reassessment: Patient appears in no apparent distress at this time. Patient and/or ca1 family updated on plan of care and expected duration. Pain level reassessed. Patient is alert, oriented x 3, equal unlabored respirations, skin warm/dry/pink. Patient states feeling better. 14:56 Reassessment: Patient appears in no apparent distress at this time. Patient and/or ca1 family updated on plan of care and expected duration. Pain level reassessed. Patient is alert, oriented x 3, equal unlabored respirations, skin warm/dry/pink. 15:20 Reassessment: Patient appears in no apparent distress at this time. Patient is alert, ca1 oriented x 3, equal unlabored respirations, skin warm/dry/pink. Ambulated to lobby awaiting tow picker by mother. Called mother for tow picker. Vital Signs: 11:40 BP 133 / 97; Pulse 114; Resp 19 S; Temp 99(TE); Pulse Ox 96% on R/A; Weight 72.57 kg ca1 (R); Height 5 ft. 2 in. (157.48 cm) (R); Pain 0/10; 13:01 BP 127 / 91; Pulse 106; Resp 18 S; Pulse Ox 98% on R/A; ca1 13:55 BP 123 / 81; Pulse 110; Resp 20 S; Pulse Ox 97% on R/A; ca1 14:56 BP 125 / 83; Pulse 105; Resp 20 S; Pulse Ox 98% on R/A; ca1 11:40 Body Mass Index 29.26 (72.57 kg, 157.48 cm) ca1 ED Course: 11:34 Patient arrived in ED. em1 11:34 Bernard Rodriguez PA is PHCP. [facility] 11:34 Demarcus Mancilla MD is Attending Physician. [facility] 11:34 Rosangela Macias RN is Primary Nurse. ca1 11:44 Triage completed. ca1 11:45 Patient has correct armband on for positive identification. Bed in low position. Call ca1 light in reach. Side rails up X 1. Pulse ox on. NIBP on. Door closed. Noise minimized. Lights dimmed. Warm blanket given. 11:54 Arm band placed on right wrist. ca1 12:45 No provider procedures requiring assistance completed. Initial lab(s) drawn, by ED ca1 staff, sent to lab. Inserted saline lock: 20 gauge in left hand, using aseptic technique. ,using aseptic technique. by Rodney life science technical officer Blood collected. 15:21 IV discontinued, intact, bleeding controlled, No redness/swelling at site. Pressure ca1 dressing applied. Administered Medications: 12:06 Drug: Ativan 1 mg Route: PO; ca1 12:49 Follow up: Response: No adverse reaction; No change in condition ca1 12:46 Drug: Ativan 1 mg Route: IVP; Site: left hand; ca1 13:57 Follow up: Response: No adverse reaction; Anxiety decreased ca1 12:49 Drug: Promethazine 12.5 mg Route: IVP; Site: left hand; ca1 13:57 Follow up: Response: No adverse reaction; Nausea unchanged ca1 14:00 Drug: diphenhydrAMINE 25 mg Route: IVP; Site: left hand; ca1 14:48 Follow up: Response: No adverse reaction ca1 14:03 Drug: Reglan 10 mg Route: IVP; Site: left hand; ca1 14:48 Follow up: Response: No adverse reaction; Nausea unchanged ca1 14:54 Drug: Zofran (Ondansetron) 4 mg Route: IVP; Site: left hand; ca1 15:14 Follow up: Response: No adverse reaction; Nausea is decreased ca1 Outcome: 15:12 Discharge ordered by MD. fonseca 15:21 Discharged to home ambulatory. ca1 15:21 Condition: stable 15:21 Discharge instructions given to patient, Instructed on discharge instructions, follow up and referral plans. no drinking with medication, no driving heavy equipment, medication usage, Demonstrated understanding of instructions, follow-up care, medications, Prescriptions given X 2. 15:22 Patient left the ED. ca1 Signatures: Bernard Rodriguez PA PA jmm Martinez, Eric em1 Rosangela Macias RN RN ca1
--- NOTE | 2020-03-28 15:13 | EDPHYS ---
Physician Documentation [facility] Name: Tiffany Quinn Age: 49 yrs Sex: Female : 1970 Arrival Date: 03/28/2020 Time: 11:34 Bed 19 Private MD: ED Physician Demarcus Mancilla HPI: 03/28 12:24 This 49 yrs old Female presents to ER via EMS with complaints of panic attack.jmm 12:24 The patient presents to the emergency department with anxiety. Onset: The jmm symptoms/episode began/occurred acutely, today. Associated signs and symptoms: Pertinent positives; anxiety, nausea, Pertinent negatives:. This is a 49 year old female with a history of bipolar disorder that presents to the ED with complaints of anxiety, panic attack beginning a few hours ago according to the patient. Patient prescribed ativan but states she is out. . 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 - Social history:: Smoking status: Patient denies any tobacco usage or history of. ROS: 12:24 Constitutional: Negative for fever, chills, and weight loss, Cardiovascular: Negative jmm for chest pain, palpitations, and edema, Respiratory: Negative for shortness of breath, cough, wheezing, and pleuritic chest pain. 12:24 Abdomen/GI: Positive for nausea. 12:24 Psych: Positive for anxiety. 12:24 All other systems are negative. Exam: 12:24 Head/Face: atraumatic. Eyes: EOMI, no conjunctival erythema appreciated ENT: Moist jmm Mucus Membranes Neck: Trachea midline, Supple Chest/axilla: Normal chest wall appearance and motion. Cardiovascular: Regular rate and rhythm. No edema appreciated Respiratory: Normal respirations, no respiratory distress appreciated Abdomen/GI: Non distended, soft Back: Normal ROM Skin: General appearance color normal MS/ Extremity: Moves all extremities, no obvious deformities appreciated, no edema noted to the lower extremities Neuro: Awake and alert, normal gait 12:24 Constitutional: The patient appears alert, awake, anxious. 12:24 Psych: Behavior/mood is anxious. 13:31 ECG was reviewed by the Attending Physician. [facility] Vital Signs: 11:40 BP 133 / 97; Pulse 114; Resp 19 S; Temp 99(TE); Pulse Ox 96% on R/A; Weight 72.57 kg ca1 (R); Height 5 ft. 2 in. (157.48 cm) (R); Pain 0/10; 13:01 BP 127 / 91; Pulse 106; Resp 18 S; Pulse Ox 98% on R/A; ca1 13:55 BP 123 / 81; Pulse 110; Resp 20 S; Pulse Ox 97% on R/A; ca1 14:56 BP 125 / 83; Pulse 105; Resp 20 S; Pulse Ox 98% on R/A; ca1 11:40 Body Mass Index 29.26 (72.57 kg, 157.48 cm) ca1 MDM: 12:18 Patient medically screened. [facility] 15:09 Data reviewed: vital signs, nurses notes. [facility] 15:11 Data reviewed: lab test result(s). Counseling: I had a detailed discussion with the [facility] patient and/or guardian regarding: the historical points, exam findings, and any diagnostic results supporting the discharge/admit diagnosis, the need for outpatient follow up, to return to the emergency department if symptoms worsen or persist or if there are any questions or concerns that arise at home. ED course: Patient has no SI or HI. Advised to follow up with pcp and otherwise given strict return precautions. Patient understood and agrees with the plan of care. . 03/28 12:24 Order name: Acetaminophen; Complete Time: 13:30 [facility] 03/28 12:24 Order name: Basic Metabolic Panel; Complete Time: 13:30 [facility] 03/28 12:24 Order name: CBC with Diff; Complete Time: 13:19 [facility] 03/28 12:24 Order name: ETOH Level; Complete Time: 13:30 [facility] 03/28 12:24 Order name: Hepatic Function; Complete Time: 13:30 [facility] 03/28 12:24 Order name: PT-INR; Complete Time: 13:19 [facility] 03/28 12:24 Order name: Ptt, Activated; Complete Time: 13:19 [facility] 03/28 12:24 Order name: Salicylate; Complete Time: 13:19 [facility] 03/28 12:24 Order name: Urine Drug Screen; Complete Time: 13:19 [facility] 03/28 12:55 Order name: Urine Dipstick--Ancillary (enter results); Complete Time: 13:29 em1 03/28 12:24 Order name: EKG; Complete Time: 12:25 [facility] 03/28 12:24 Order name: EKG - Nurse/Tech; Complete Time: 13:24 [facility] 03/28 12:24 Order name: IV Saline Lock; Complete Time: 12:49 [facility] 03/28 12:24 Order name: Labs collected and sent; Complete Time: 12:49 [facility] 03/28 12:24 Order name: Urine Dipstick-Ancillary (obtain specimen); Complete Time: 12:49 jmm EC:31 Rate is 105 beats/min. Rhythm is regular. QRS [place] is Normal. [place] interval is normal. jmm QRS interval is normal. QT interval is normal. No Q waves. T waves are Normal. No ST changes noted. Reviewed by me. Administered Medications: 12:06 Drug: Ativan 1 mg Route: PO; ca1 12:49 Follow up: Response: No adverse reaction; No change in condition ca1 12:46 Drug: Ativan 1 mg Route: IVP; Site: left hand; ca1 13:57 Follow up: Response: No adverse reaction; Anxiety decreased ca1 12:49 Drug: Promethazine 12.5 mg Route: IVP; Site: left hand; ca1 13:57 Follow up: Response: No adverse reaction; Nausea unchanged ca1 14:00 Drug: diphenhydrAMINE 25 mg Route: IVP; Site: left hand; ca1 14:48 Follow up: Response: No adverse reaction ca1 14:03 Drug: Reglan 10 mg Route: IVP; Site: left hand; ca1 14:48 Follow up: Response: No adverse reaction; Nausea unchanged ca1 14:54 Drug: Zofran (Ondansetron) 4 mg Route: IVP; Site: left hand; ca1 15:14 Follow up: Response: No adverse reaction; Nausea is decreased ca1 Disposition: 15:36 Co-signature as Attending Physician, Demarcus Mancilla MD I agree with the assessment and kdr plan of care. Disposition: 03/28/20 15:12 Discharged to Home. Impression: Anxiety disorder, unspecified. - Condition is Stable. - Discharge Instructions: Panic Attacks. - Prescriptions for Ativan 0.5 mg Oral Tablet - take 1 tablet by ORAL route every 8 hours As needed; 12 tablet. Hydroxyzine HCl 50 mg Oral Tablet - take 1 tablet by ORAL route every 8 hours As needed; 20 tablet. - Medication Reconciliation Form, Thank You Letter, Antibiotic Education, Prescription Opioid Use form. - Follow up: Private Physician; When: 2 - 3 days; Reason: Recheck today's complaints, Continuance of care, Re-evaluation by your physician. Signatures: Dispatcher [employer] EDMS Demarcus Mancilla MD MD kdr Mickail, Joel, PA PA Rosangela Gann RN RN ca1 Corrections: (The following items were deleted from the chart) 15:22 15:12 03/28/2020 15:12 Discharged to Home. Impression: Anxiety disorder, unspecified. ca1 Condition is Stable. Forms are Medication Reconciliation Form, Thank You Letter, Antibiotic Education, Prescription Opioid Use. Follow up: Private Physician; When: 2 - 3 days; Reason: Recheck today's complaints, Continuance of care, Re-evaluation by your physician. [email or web address]
[2020-03-28 15:38] VITALS: TEMP 99
[2020-03-28 15:45] VITALS: BP 125/83; O2SAT 98
--- NOTE | 2020-03-29 11:54 | EKG ---
Test Date: 2020-03-28 Test Time: 13:27:36 Project Manager Senior: SHARMIN MEASUREMENT RESULTS: Intervals: Rate: 105 FL: 156 QRSD: 80 QT: 368 QTc: 486 [place]: P: 38 FL: 156 QRS: -26 T: 40 INTERPRETIVE STATEMENTS: Sinus tachycardia Cannot rule out Anterior infarct, age undetermined Abnormal ECG Compared to ECG 03/24/2020 09:28:56 No significant changes Electronically Signed On 03-29-20 11:50:28 CDT by Tito Smiley
== END 2020-03-28 15:22 | disposition home or self-care (01) ==
LOC: ER 11:30
DX: F41.9 Anxiety disorder, unspecified (principal); Z88.8 Allergy status to other drugs, medicaments and biological substances
CPT/HCPCS: 93005; 85025; 80048; 36415; 80320; 80329 ×2; 85610; 80076; 80307 ×8; 85730; 81003; 96375; 96374; 99284; J2765; J2550; J1200; J7040; J2405 ×2

== ENCOUNTER 2020-03-29 11:07 | Emergency (ER) | payer OTHER ==
--- OUTSIDE RECORDS SUMMARY | 2020-03-29 11:13 | XMS REPORT | Continuity of Care Document ---
:1970 Author Organization [facility] Care Team Providers Name Role Phone [facility] Unavailable Un available Problems Problem Status Onset [...] tab, Active hydrochloride PO, Q6H, PRN 2018 [facility] 50 MG Oral Pain Score Tablet 1-3, X 5 day, # 20 tab, 0 Refill(s) Metronidazole 500 mg = 1 Active 500 MG Oral tab, PO, 2019 [facility] Tablet [id number], X 4 day, # 12 tab, 0 Refill(s) ciprofloxacin 500 mg = 1 Active 500 mg oral tab, PO, 2019 [facility] tablet [id number], X 4 day, # 8 tab, 0 Refill(s) Potassium Notes: (Same Inactive Chloride as: K-Dur 20) 2018 [facility] "Do Not Crush" Give with food and full glass of water For patients unable to swallow tablet, dissolve in one half glass of water. Allow about 2 minutes for the tablets to disintegrate. Stir before giving to prepare slurry and administer. Please exclude Patient’ s with feeding tube less than 14 [place] (Dobhoff, J-tube etc) and pediatric and patients. Strattera 0.5 mg/kg, No Longer Route: PO, Active 2018 [facility] QAM, Dosing Weight 75, kg, Start date: 01/24/19 9:00:00 CDT, Duration: 30 day, Stop date: 02/22/19 9:00:00 CDT lithium Notes: Do not No Longer crush or chew. Active 2018 [facility] (Same as: Eskalith-CR) Risperdal Notes: (Same No Longer as: Risperdal) Active 2018 [facility] Strattera 1 mg, Route: No Longer PO, QPM, Active 2018 [facility] Dosing Weight 75, kg, Start date: 01/23/19 17:00:00 CDT, Duration: 30 day, Stop date: 02/21/19 17:00:00 CDT normal saline 1,000 mL, No Longer 0.9% IV 1,000 Rate: 100 Active [facility] ml/hr, Infuse over: 10 hr, Route: IV, Dosing Weight 75 kg, Total Volume: 1,000, Start date: 01/23/19 14:18:00 CDT, Duration: 30 day, Stop date: 02/22/19 14:17:00 CDT, 1.84, m2 Clonazepam Notes: (Same No Longer As: KlonoPIN) Active 2018 [facility] Flagyl Notes: (Same No Longer as: Flagyl) Active 2018 [facility] Take with food/ avoid alcohol Cipro Notes: May No Longer interfere Active 2018 [facility] w/enteral feedings - Take 1 hr before or 2 hrs after antacids, dairy pdt & minerals. On empty stomach. tramadol 50 mg = 1 tab, No Longer hydrochloride PO, Q6H, PRN Active 2018 [facility] 50 MG Oral Pain Score Tablet 1-3, 0 Refill(s) potassium 40 mEq, PO, Active chloride 20 mEq ONCE, 0 2018 [facility] oral tablet, Refill(s) extended release Metronidazole 500 mg, PO, No Longer 500 MG Oral [id number], 0 Active 2018 [facility] Tablet [Flagyl] Refill(s) Ciprofloxacin 500 mg, PO, No Longer 500 MG Oral [id number], 0 Active 2018 [facility] Tablet [Cipro] Refill(s) Potassium Notes: (Same Inactive Chloride as: K-Dur 20) 2019 [facility] "Do Not Crush" Give with food and full glass of water For patients unable to swallow tablet, dissolve in one half glass of water. Allow about 2 minutes for the tablets to disintegrate. Stir before giving to prepare slurry and administer. Please exclude Patient’ s with feeding tube less than 14 [place] (Dobhoff, J-tube etc) and pediatric and patients. Pepcid Notes: (Same No Longer as: Pepcid) Active 2018 [facility] Strattera 0.5 mg/kg, PO, Active QAM, 0 2018 [facility] Refill(s) lithium 450 mg 450 mg = 1 Active oral tablet, tab, PO, 2018 [facility] extended Bedtime, # 60 release tab, 0 Refill(s) clonazePAM 0.5 0.5 mg = 1 Active mg oral tablet tab, PO, TID, 2018 [facility] # 90 tab, 0 Refill(s) Risperidone 0.5 0.5 mg = 1 Active MG Oral Tablet tab, PO, BID, 2018 [facility] [Risperdal] 0 Refill(s) Zosyn Notes: (Same No Longer as: Zosyn) Active 2018 [facility] Dosing based on Piperacillin component MEDICATION WASTE Product Size: 3375 mg Product Wasted: ___ mg Tramadol Notes: Not to No Longer exceed Active 2018 [facility] 400mg/day. (Same As: Ultram) normal saline 1,000 mL, No Longer 0.9% IV 1,000 Rate: 150 Active 2018 [facility] t mL ml/hr, Infuse over: 6.7 hr, Route: IV, Dosing Weight 75.994 kg, Total Volume: 1,000, Start date: 01/22/19 4:48:00 CDT, Duration: 30 day, Stop date: 02/21/19 4:47:00 CDT Ondansetron Notes: (Same No Longer as: Zofran) Active 2018 [facility] MEDICATION WASTE Product Size: 4 mg Product Wasted: ___ mg Glucagon 1 mg, Route: No Longer IM, Drug form: Active 2018 [facility] PDR/INJ, PRN, Dosing Weight 75.994, kg, PRN Blood Glucose Results, Start date: 01/22/19 4:47:00 CDT, Duration: 30 day, Stop date: 02/21/19 4:46:00 CDT Dextrose 50% 12.5 gm, 25 No Longer Syringe mL, Route: Active 2018 [facility] IVP, Drug Form: INJ, Dosing Weight 75.994, kg, PRN, PRN Blood Glucose Results, Start date: 01/22/19 4:47:00 CDT, Duration: 30 day, Stop date: 02/21/19 4:46:00 CDT Zofran Notes: (Same Inactive as: Zofran) 2018 [facility] MEDICATION WASTE Product Size: 4 mg Product Wasted: ___ mg NS (Bolus) IV 1,000 mL, Inactive 1,000 ml/hr, 2018 [facility] Infuse Over: 1 hr, Route: IV, 1,000, Drug form: INJ, ONCE, Priority: STAT, Dosing Weight 75.994 kg, Start date: 01/22/19 3:52:00 CDT, Stop date: 01/22/19 3:52:00 CDT Visipaque 320 Notes: (Same Inactive mg/mL as: 2019 [facility] injectable Visipaque). solution WASTE: F/P - Black; E - [employer] Zosyn Notes: (Same Inactive as: Zosyn) 2018 [facility] Dosing based on Piperacillin component MEDICATION WASTE Product Size: 3375 mg Product Wasted: ___ mg NS (Bolus) IV 1,000 mL, Inactive 1,000 ml/hr, 2018 [facility] Infuse Over: 1 hr, Route: IV, 1,000, Drug form: INJ, ONCE, Priority: STAT, Dosing Weight 75.994 kg, Start date: 01/22/19 0:44:00 CDT, Stop date: 01/22/19 0:44:00 CDT Zofran Notes: (Same No Longer as: Zofran) Active 2018 [facility] MEDICATION WASTE Product Size: 4 mg Product Wasted: ___ mg Saline Flush Notes: Same No Longer 0.9% as: BD Active 2018 [facility] Posiflush Sterile NS (Bolus) IV 1,000 mL, No Longer 1,000 ml/hr, Active 2018 [facility] Infuse Over: 1 hr, Route: IV, [...] AGAP 8.6 10.0 - 01/26 ES 20.0 [facility] ELECTROLYT Chloride Lvl 107 95 - 109 01/26 [facility] ELECTROLYT CO2 27 24 - 32 01/26 [facility] ELECTROLYT Sodium Lvl 139 135 - 145 01/26 [facility] ELECTROLYT Potassium 3.6 3.5 - 5.1 01/26 [facility] Lv [facility] ELECTROLYT Creatinine 0.70 0.50 - 01/26 ES Lvl 1.40 [facility] ELECTROLYT Calcium Lvl 8.4 8.5 - 10.5 01/26 [facility] ELECTROLYT eGFR 103 01/26 Result Comment: The [facility] eGFR is calculated using the CKD-EPI [...] Glucose Lvl 86 70 - 99 01/26 [facility] ELECTROLYT BUN 6 7 - 22 01/26 [facility] HEMATOLOGY Hgb 11.6 12.0 - 01/26 MH 16.0 [facility] HEMATOLOGY RBC 3.78 4.20 - 01/26 MH 5.40 /2018 [facility] HEMATOLOGY RDW 13.3 11.5 - 01/26 MH 14.5 [facility] HEMATOLOGY MCHC 34.0 32.0 - 01/26 MH 36.0 [facility] HEMATOLOGY WBC 6.3 3.7 - 10.4 01/26 [facility] HEMATOLOGY MCH 30.7 27.0 - 01/26 MH 31.0 [facility] HEMATOLOGY MCV 90.3 80.0 - 01/26 98.0 [facility] HEMATOLOGY Hct 34.2 36.0 - 01/26 MH 48.0 [facility] HEMATOLOGY Platelet 412 133 - 450 01/26 [facility] HEMATOLOGY MPV 7.5 7.4 - 10.4 01/26 [facility] CHEM PANEL eGFR 108 01/25 [facility] Comment: The [facility] eGFR is calculated using the CKD-EPI [...] Calcium Lvl 8.5 8.5 - 10.5 01/25 [facility] CHEM PANEL AGAP 13.3 10.0 - 01/25 MH 20.0 [facility] CHEM PANEL CO2 24 24 - 32 01/25 [facility] CHEM PANEL Chloride Lvl 109 95 - 109 01/25 [facility] CHEM PANEL Glucose Lvl 81 70 - 99 01/25 [facility] CHEM PANEL BUN 2 7 - 22 01/25 [facility] CHEM PANEL Potassium 3.3 3.5 - 5.1 01/25 [facility] CHEM PANEL Creatinine 0.60 0.50 - 01/25 MH Lvl 1.40 [facility] CHEM PANEL Sodium Lvl 143 135 - 145 01/25 [facility] MOLECULAR C difficile Negative Negative 01/23 DIAGNOSTIC DNA (01/23/19 11:22 AM) [facility] CHEM PANEL Procalcitoni 2.76 0.00 - 01/23 Result n Lvl 0.10 Comment: [facility] Critical Result(s) called to A Levin at 01/23/2019 12:56 by cz. Read back OK. CHEM PANEL Lactic Acid 0.9 0.5 - 2.2 01/23 [facility] CHEM PANEL Magnesium 2.0 1.8 - 2.4 01/23 [facility] CHEM PANEL eGFR 115 01/23 Result Comment: The [facility] eGFR is calculated using the CKD-EPI [...] PANEL CO2 23 24 - 32 01/23 [facility] CHEM PANEL Chloride Lvl 113 95 - 109 01/23 [facility] CHEM PANEL Potassium 3.1 3.5 - 5.1 01/23 [facility] CHEM PANEL Sodium Lvl 143 135 - 145 01/23 [facility] CHEM PANEL BUN 5 7 - 22 01/23 [facility] CHEM PANEL Creatinine 0.50 0.50 - 04 MH Lvl 1.40 /2018 [facility] CHEM PANEL Calcium Lvl 7.8 8.5 - 10.5 01/23 [facility] CHEM PANEL Glucose Lvl 83 70 - 99 01/23 [facility] CHEM PANEL AGAP 10.1 10.0 - 01/23 20.0 /2018 [facility] HEMATOLOGY Eosinophils 0.2 0.0 - 0.5 01/23 # [facility] HEMATOLOGY Monocytes # 0.8 0.0 - 0.8 01/23 [facility] HEMATOLOGY Neutrophils 5.5 1.5 - 8.1 01/23 [facility] HEMATOLOGY Lymphocytes 2.2 1.0 - 5.5 01/23 [facility] HEMATOLOGY Basophils 0.1 0.0 - 1.0 01/23 [facility] HEMATOLOGY Segs 63.6 45.0 - 01/23 75.0 /2018 [facility] HEMATOLOGY Monocytes 8.9 2.0 - 12.0 01/23 [facility] HEMATOLOGY Eosinophils 2.3 0.0 - 4.0 01/23 [facility] HEMATOLOGY RBC Morph Normal 01/23 (01/23/19 5:50 AM) [facility] HEMATOLOGY Plt Morph Normal 01/23 (01/23/19 5:50 AM) [facility] HEMATOLOGY Lymphocytes 25.1 20.0 - 01/23 40.0 [facility] HEMATOLOGY RDW 13.1 11.5 - 01/23 14.5 /2018 [facility] HEMATOLOGY Platelet 327 133 - 450 01/23 [facility] HEMATOLOGY MPV 7.7 7.4 - 10.4 01/23 [facility] HEMATOLOGY WBC 8.6 3.7 - 10.4 01/23 [facility] HEMATOLOGY Hgb 10.0 12.0 - 01/23 Result MH 16.0 Comment: [facility] Notified Raghavendra 01/23/2019 07:32 by smt. HEMATOLOGY MCHC 34.6 32.0 - 04 36.0 /2018 [facility] HEMATOLOGY Hct 28.7 36.0 - 01/23 48.0 /2018 [facility] HEMATOLOGY MCV 87.8 80.0 - 01/23 98.0 /2018 [facility] HEMATOLOGY MCH 30.4 27.0 - 04 31.0 [facility] HEMATOLOGY RBC 3.27 4.20 - 04 5.40 /2019 [facility] Culture: Normal Enteric Pam Isolated 01/22 Stool No Salmonella Or Shigella Isolated [facility] No Campylobacter Isolated CHEM PANEL Lactic Acid 2.4 0.5 - 2.2 01/22 Lvl [facility] CHEM PANEL Lactic Acid 3.0 0.5 - 2.2 01/22 Lvl [facility] URINE AND UA Spec Grav 1.014 <=1.030 01/22 STOOL [facility] URINE AND UA pH 6.0 5.0 - 8.0 01/22 STOOL [facility] URINE AND UA Protein Negative Negative 01/22 STOOL (01/22/19 2:14 AM) /2018 [facility] URINE AND UA Glucose Negative Negative 01/22 STOOL *NA* /2018 [facility] (01/22/19 2:14 AM) URINE AND UA Ketones Negative Negative 01/22 STOOL *NA* /2018 [facility] (01/22/19 2:14 AM) URINE AND UA Bili Negative Negative 01/22 STOOL *NA* [facility] (01/22/19 2:14 AM) URINE AND UA Nitrite Negative Negative 01/22 STOOL (01/22/19 2:14 AM) /2018 [facility] URINE AND UA <=1.0 0.1 - 1.0 01/22 STOOL Urobilinogen mg/dL [facility] URINE AND UA Sq Epi Occasional Few /LPF 01/22 STOOL /LPF /2018 [facility] URINE AND UA Leuk Est Negative Negative 01/22 STOOL (01/22/19 2:14 AM) /2018 [facility] URINE AND UA Blood Negative Negative 01/22 STOOL (01/22/19 2:14 AM) /2018 [facility] URINE AND UA Mucus Few /LPF None Seen 01/22 STOOL /LPF [facility] URINE AND UA RBC <1 0 - 2 01/22 STOOL [facility] URINE AND UA Hyal Cast 25 0 - 2 01/22 STOOL [facility] URINE AND UA WBC 2 0 - 5 01/22 STOOL [facility] URINE AND UA Color Light Yellow Yellow 01/22 STOOL *NA* [facility] (01/22/19 2:14 AM) URINE AND UA Turbidity Clear Clear 01/22 STOOL (01/22/19 2:14 AM) /2018 [facility] est METAL [place] Lvl 0.90 0.50 - 01/22 1.50 /2018 [facility] BLOOD BANK ABO/Rh A POS 01/22 RESULTS /2018 [facility] BLOOD BANK Antibody Negative 01/22 RESULTS Scrn (01/22/19 12:01 AM) /2018 [facility] CARDIAC Troponin-I <0.02 0.00 - 01/22 ENZYMES 0.40 [facility] CARDIAC Total CK 49 12 - 191 01/22 ENZYMES /2018 [facility] CHEM PANEL Bili Total 0.6 0.2 - 1.3 01/22 /2018 [facility] CHEM PANEL Alk Phos 100 39 - 136 01/22 /2018 [facility] CHEM PANEL Albumin Lvl 4.0 3.5 - 5.0 01/22 [facility] CHEM PANEL AST 17 0 - 37 01/22 /2018 [facility] CHEM PANEL ALT 25 0 - 65 01/22 [facility] CHEM PANEL Total 8.1 6.4 - 8.4 01/22 Protein /2018 [facility] CHEM PANEL B/C Ratio 20 6 - 25 01/22 /2018 [facility] CHEM PANEL A/G Ratio 1.0 0.7 - 1.6 01/22 /2018 [facility] CHEM PANEL Globulin 4.1 2.7 - 4.2 01/22 /2018 [facility] CHEM PANEL Procalcitoni 6.90 0.00 - 01/22 Result n Lvl 0.10 Comment: [facility] Critical Result(s) called to Eliana Vega at 01/22/2019 00:50 by VV. Read back OK. ENDOCRINOL S Preg Negative Negative 01/22 OGY *NA* /2018 [facility] (01/22/19 12:01 AM) HEMATOLOGY Eosinophils 0.1 0.0 - 0.5 01/22 MH # /2019 [facility] HEMATOLOGY Monocytes # 0.7 0.0 - 0.8 01/22 /2018 [facility] HEMATOLOGY Basophils # 0.0 0.0 - 0.2 01/22 /2018 [facility] HEMATOLOGY Basophils 0.0 0.0 - 1.0 01/22 /2018 [facility] HEMATOLOGY Eosinophils 0.9 0.0 - 4.0 01/22 /2018 [facility] HEMATOLOGY Neutrophils 8.6 1.5 - 8.1 01/22 # /2019 [facility] HEMATOLOGY Lymphocytes 0.6 1.0 - 5.5 01/22 MH # /2019 [facility] Segs 86.5 45.0 - 01/22 MH 75.0 /2019 [facility] Lymphocytes 5.7 20.0 - 01/22 MH 40.0 /2018 [facility] Monocytes 6.9 2.0 - 12.0 01/22 /2018 [facility] WBC 9.9 3.7 - 10.4 01/22 /2018 [facility] MCHC 32.8 32.0 - 01/22 MH 36.0 /2018 [facility] RDW 13.6 11.5 - 01/22 14.5 /2018 [facility] Platelet 443 133 - 450 01/22 [facility] MPV 7.3 7.4 - 10.4 01/22 [facility] Hgb 14.0 12.0 - 01/22 16.0 /2018 [facility] RBC 4.85 4.20 - 01/22 5.40 /2018 [facility] Hct 42.7 36.0 - 01/22 MH 48.0 /2018 [facility] MCH 29.0 27.0 - 01/22 31.0 /2018 [facility] MCV 88.2 80.0 - 01/22 98.0 /2018 [facility] INR 0.96 0.85 - 01/22 MH 1.17 /2018 [facility] PT 12.6 12.0 - 01/22 14.7 /2018 [facility] PTT 25.9 22.9 - 01/22 35.8 /2018 [facility] Pathology Reports No Data Provided for [...] dislocation of the left ankl e. SL: [id number] ED Abdomen/Pelvis IV Clinical Indication: Diarrhe a low blood pressure, abdominal pain. 01/22/2019 [facility] contrast only CT Comparison: None [...] Mild sigmoid diverticulosis without diverticu litis. SL: [id number] Chest 1view DX Clinical Indication: Undifferentiated sepsis. [facility] Comparison: None FINDINGS: AP view of the chest submitted for interpretatio n. Lungs are clear. Heart size is normal. Central pulmonary vasculat ure appears normal. No effusion. No pneumothorax. No radiographically apparent acute osseous abnor mality. IMPRESSION: 1. No radiographically apparent acute cardiopulm onary process. SL: [id number] Consultation Notes No Data Provided for This Section Discharge Summaries No Data Provided for This Section History and Physicals No Data Provided for This Section Vital Signs Vital Sign Value Date Comments Source Temperature Oral (F) 98.6 F 01/28/[place] [facility] Systolic (mm Hg) 137 01/28/2019 [facility] t Diastolic (mm Hg) 84 01/28/[address] [facility] [address] Heart Rate 82 01/28/2019 [facility] Respitory Rate 18 01/28/2019 [facility] Systolic (mm Hg) 113 01/27/2019 [facility] t Diastolic (mm Hg) 72 01/27/[address] [facility] [address] Heart Rate 77 01/27/2019 [facility] Respitory Rate 18 01/27/2019 [facility] Temperature Oral (F) 98.5 F 01/27/2019 [facility] Systolic (mm Hg) 108 01/27/2019 [facility] t Diastolic (mm Hg) 71 01/27/[address] [facility] [address] Temperature Oral (F) 98.5 F 01/27/2019 [facility] Heart Rate 86 01/27/2019 [facility] Respitory Rate 18 01/27/2019 [facility] Height 157.48 cm 01/22/2019 [facility] BMI Calculated 30.24 01/22/2019 [facility] Weight 75 01/22/2019 [facility] Weight 75.994 01/22/2019 [facility] Encounters Location Location Encounter Encounter Reason Attending ADM TN Stat us Source Details Type Number For Provider Date Date [facility] [id number] Ed 01/22 01/28 Yonis Sandovalni /2018 [facility] Procedures No Data Provided for This Section Assessment and Plan Assessment and Plan Date Source Extracted from:Title: Discharge Summary 01/28/2019 [facility] Author: Axel Arriaga MD Date: [...] abdominal pain, presented to the ER from [facility] for evaluation of hypotension. She complains of [...] MD on 01/27/2019 15:26 Patient was to [facility] [place] denied her. I spoke to physician at [facility] who has accepted patient. Extracted from:Title: Progress Note Author: Axel Arriaga MD Date: 01/25/19 48 year old female Admitted with hypotension, abdominal pain and sepsis. Was at [facility] for exacerbation of depression/bipolar disorder. Ct abd/pelvis showed mild enterocolitis . CXR and UA are clear.No leucocytosis. But lactic acid and pro-calcitonin elevated and patient was significantly hypotensive on admission. Patient is currently on IV antibiotics and IV fluids. Colitis improving Hypotension secondary to colitis improved with IV fluids Depression and bipolar disorder with re cent admission at [facility] with concern for psychosis Hypokalemia secondary to diarrhea treated Anemia of chronic disease Plan: Will DC IV fluids, will advance diet to regular diet We will continue with Cipro and Flagyl We will replacepotassiump.o. Discussed with psych response team. The ymentioned that patient is having some delusions but otherwiseno suicidal homicidal ideations. They haveclearthe patient to go back to [facility] rehab once medica lly cleared. Exclusionary paperwork is i n the chart to be signed bythe physician once medically cleared. Discussed in MDR's: Likely dischargeto morrowif tolerating regular diet and labs arewnl Extracted from:Title: History and Physical Author: Ed Demarco DO Date: 01/22/19 48 y/o female with history of bipolar di sorder currently admitted at [facility], depression and abdominal hernia brought in via EMS from [facility] for evaluation of hypotension. 1.Severe sepsis(R65.20) Hypotensive [...] History Date Source Social History TypeResponse 01/22/2019 [facility] Smoking Status Light tobacco smoker; Exposure to Tobacc o Smoke None; Cigarette Smoking Last 365 Days No; Reg Smoking Cessation Counseling No entered on: 01/22/19 Family History No Data Provided for This Section Advance Directives No Data Provided for This Section Functional Status No Data Provided for This Section
--- OUTSIDE RECORDS SUMMARY | 2020-03-29 11:16 | XMS REPORT | Continuity of Care Document ---
:1970 Author Organization [facility] t Address [address] [place] [address] Care Team Providers Name Role Phone UNKNOWN Primary Care Physician Unavailable Dav Attending Clinician LOS Attending Clinician Unavailable Dav Admitting Clinician LOS Admitting Clinician Unavailable Problems Condition Condition Condition Status Onset Resolution Last Treating Co mments Source Name Details Category Date Date Treatment Clinician Date LOW PB Diagnosis Active 2019-01-22 Mem oria 3 01:52:00 l LOW PB 00:00: [place] 00 Active 01/21/2019 [facility] INFECTIOUS Diagnosis Active 2019-02-06 Memoria GASTROENTE 3 08:58:00 l RITIS AND 00:00: [place] COLITIS INFECTIOUS 00 GASTROENTE RITIS AND COLITIS Active 01/21/2019 [facility] INFECTIOUS Diagnosis Active 2019-02-06 Memoria GASTROENTE 08:58:00 l RITIS AND Yonis COLITIS, INFECTIOUS GASTROENTE RITIS AND COLITIS, Active [facility] Allergies, Adverse Reactions, Alerts Allergy Allergy Status Severity Reaction(s) Onset Inactive Treating Comm ents Source Name Type Date Date Clinician Phenerga Phenerga Active Wicho Somers Social History Smoking Status Start Date Stop Date Source Social History 2019-01-22 05:00:12 [facility] Medications Ordered Filled Start Stop Current Ordering Indication Dosage Frequency Signature Comments Components Source Medication Medication Date Date Medication? Clinician (SIG) Name Name Ondansetron 2019- Yes 4 mg = 1 Me moria 4 MG Oral 4-04 tab, PO, l Tablet 17:35: Q6H, PRN Yonis [Zofran] 00 Nausea/Vom iting, # 20 tab, 0 Refill(s) tramadol 2018- Yes 50 mg = 1 Estrada doni hydrochlori 4-04 tab, PO, l de 50 MG 17:35: Q6H, PRN Deloris nn Oral Tablet 00 Pain Score 1-3, X 5 day, # 20 tab, 0 Refill(s) Metronidazo Yes 500 mg = 1 Memoria le 500 MG 4-04 tab, PO, l Oral Tablet 17:35: ABXQ8H, X H ermann 00 4 day, # 12 tab, 0 Refill(s) ciprofloxac Yes 500 mg = 1 Memoria in 500 mg 4-04 tab, PO, l oral tablet 17:35: [id number], X Yonis 00 4 day, # 8 tab, 0 Refill(s) Potassium No Notes: Memori a Chloride 01-25 (Same as: l 13:26: K-Dur 20) "Do Not Crush" Give with food and full glass of water For patients unable to swallow tablet, dissolve in one half glass of water. Allow about 2 minutes for the tablets to disintegra te. Stir before giving to prepare slurry and administer . Please exclude Patient s with feeding tube less than 14 Colombian (Dobhoff, J-tube etc) and pediatric and patients. Strattera No 0.5 mg/kg, Me moria 01-24 Route: PO, l 14:00: QAM, Dosing Weight 75, kg, Start date: 01/24/19 9:00:00 CDT, Duration: 30 day, Stop date: 02/22/19 9:00:00 CDT lithium No Notes: Do Memor ia 01-24 not crush l 02:00: or chew. (Same as: Ricardo-C R) Risperdal No Notes: Memori a 01-23 (Same as: l 22:00: Risperdal) Strattera No 1 mg, Memoria 01-23 Route: PO, l 22:00: QPM, Dosing Weight 75, kg, Start date: 01/23/19 17:00:00 CDT, Duration: 30 day, Stop date: 02/21/19 17:00:00 CDT normal No 1,000 mL, Memori a saline 0.9% 01-23 Rate: 100 l IV 1,000 mL 19:18: ml/hr, Herm Infuse over: 10 hr, Route: IV, Dosing Weight 75 kg, Total Volume: 1,000, Start date: 01/23/19 14:18:00 CDT, Duration: 30 day, Stop date: 02/22/19 14:17:00 CDT, 1.84, m2 Clonazepam No Notes: Memor ia - (Same As: l 18:00: KlonoPIN) [place] Flagyl No Notes: Memoria 01-23 (Same as: l 15:00: Flagyl) [place] 00 Take with food/ avoid alcohol Cipro No Notes: May Memori a 01-23 interfere l 15:00: w/enteral Yonis 00 feedings - Take 1 hr before or 2 hrs after antacids, dairy pdt & minerals. On empty stomach. tramadol No 50 mg = 1 Estrada doni hydrochlori 01-23 tab, PO, l de 50 MG 14:20: Q6H, PRN Deloris nn Oral Tablet 00 Pain Score 1-3, 0 Refill(s) potassium Yes 40 mEq, Memor ia chloride 20 -01 PO, ONCE, l mEq oral 14:20: 0 Yonis tablet, 00 Refill(s) extended release Metronidazo No 500 mg, Mem oria le 500 MG 4-01 PO, l Oral Tablet 14:20: ABXQ8H, 0 H ermann [Flagyl] 00 Refill(s) Ciprofloxac No 500 mg, Mem oria in 500 MG -01 PO, l Oral Tablet 14:20: [id number], 0 [place] [Cipro] 00 Refill(s) Potassium No Notes: Memori a Chloride 01-23 (Same as: l 14:17: K-Dur 20) Yonis 00 "Do Not Crush" Give with food and full glass of water For patients unable to swallow tablet, dissolve in one half glass of water. Allow about 2 minutes for the tablets to disintegra te. Stir before giving to prepare slurry and administer . Please exclude Patient s with feeding tube less than 14 Colombian (Dobhoff, J-tube etc) and pediatric and patients. Pepcid No Notes: Memoria 3-31 (Same as: l 22:00: Pepcid) Strattera Yes 0.5 mg/kg, Me moria 3-31 PO, QAM, 0 l 21:08: Refill(s) lithium 450 Yes 450 mg = 1 Memoria mg oral 3-31 tab, PO, l tablet, 21:08: Bedtime, # Herm stephon extended 00 60 tab, 0 release Refill(s) clonazePAM Yes 0.5 mg = 1 M emoria 0.5 mg oral 3-31 tab, PO, l tablet 21:08: TID, # 90 Reji n 00 tab, 0 Refill(s) Risperidone Yes 0.5 mg = 1 Memoria 0.5 MG Oral 3-31 tab, PO, l Tablet 21:08: BID, 0 Yonis [Risperdal] 00 Refill(s) Zosyn No Notes: Memoria 3-31 (Same as: l 16:00: Zosyn) Dosing based on Piperacill in component MEDICATION WASTE Product Size: 3375 mg Product Wasted: ___ mg Tramadol No Notes: Not Mem oria -31 to exceed l 15:03: 400mg/day. (Same As: Ultram) normal No 1,000 mL, Memori a saline 0.9% 01-22 Rate: 150 l IV 1,000 mL 09:48: ml/hr, Infuse over: 6.7 hr, Route: IV, Dosing Weight 75.994 kg, Total Volume: 1,000, Start date: 01/22/19 4:48:00 CDT, Duration: 30 day, Stop date: 02/21/19 4:47:00 CDT Ondansetron No Notes: Estrada doni -31 (Same as: l 09:47: Zofran) MEDICATION WASTE Product Size: 4 mg Product Wasted: ___ mg Glucagon No 1 mg, Memoria 31 Route: IM, l 09:47: Drug form: Yonis 00 PDR/INJ, PRN, Dosing Weight 75.994, kg, PRN Blood Glucose Results, Start date: 01/22/19 4:47:00 CDT, Duration: 30 day, Stop date: 02/21/19 4:46:00 CDT Dextrose 2018- No 12.5 gm, Memor ia 50% Syringe 3-31 25 mL, l 09:47: Route: Yonis 00 IVP, Drug Form: INJ, Dosing Weight 75.994, kg, PRN, PRN Blood Glucose Results, Start date: 01/22/19 4:47:00 CDT, Duration: 30 day, Stop date: 02/21/19 4:46:00 CDT Zofran No Notes: Memoria 3-31 (Same as: l 08:56: Zofran) [place] MEDICATION WASTE Product Size: 4 mg Product Wasted: ___ mg NS (Bolus) No 1,000 mL, Me moria IV 3-31 1,000 l 08:52: ml/hr, Yonis 00 Infuse Over: 1 hr, Route: IV, 1,000, Drug form: INJ, ONCE, Priority: STAT, Dosing Weight 75.994 kg, Start date: 01/22/19 3:52:00 CDT, Stop date: 01/22/19 3:52:00 CDT Visipaque No Notes: Memori a 320 mg/mL -31 (Same as: l injectable 06:42: Visipaque) H ermann solution . WASTE: F/P - Black; E - Municipal Trash Bin Zosyn No Notes: Memoria 3-31 (Same as: l 06:10: Zosyn) Dosing based on Piperacill in component MEDICATION WASTE Product Size: 3375 mg Product Wasted: ___ mg NS (Bolus) No 1,000 mL, Me moria IV 3-31 1,000 l 05:44: ml/hr, Yonis 00 Infuse Over: 1 hr, Route: IV, 1,000, Drug form: INJ, ONCE, Priority: STAT, Dosing Weight 75.994 kg, Start date: 01/22/19 0:44:00 CDT, Stop date: 01/22/19 0:44:00 CDT Zofran No Notes: Memoria 01-22 (Same as: l 04:52: Zofran) [place] MEDICATION WASTE Product Size: 4 mg Product Wasted: ___ mg Saline No Notes: Memoria Flush 0.9% 01-22 Same as: l 04:52: BD [place] Posiflush Sterile NS (Bolus) No 1,000 mL, Me moria IV 01-22 1,000 l 04:51: ml/hr, [place] 00 Infuse Over: 1 hr, Route: IV, 1,000, Drug form: INJ, ONCE, Priority: STAT, Dosing Weight 75.994 kg, Start date: 01/21/19 23:51:00 CDT, Stop date: 01/21/19 23:51:00 CDT Vital Signs Vital Name Observation Time Observation Value Comments Source Temperature Oral (F) 2019-01-28 01:16:00 98.6 F [facility] [place] Systolic (mm Hg) 2019-01-28 01:16:00 Estrada rial [place] Diastolic (mm Hg) 2019-01-28 01:16:00 Mem orial Yonis Heart Rate 2019-01-28 01:16:00 [facility] [place] Respitory Rate 2019-01-28 01:16:00 Memori al [place] Systolic (mm Hg) 2019-01-27 20:42:00 Estrada rial [place] Diastolic (mm Hg) 2019-01-27 20:42:00 Mem orial [place] Heart Rate 2019-01-27 20:42:00 [facility] [place] Respitory Rate 2019-01-27 20:42:00 Memori al [place] Temperature Oral (F) 2019-01-27 20:42:00 98.5 F [facility] [place] Systolic (mm Hg) 2019-01-27 17:00:00 Estrada rial Yonis Diastolic (mm Hg) 2019-01-27 17:00:00 Mem orial [place] Temperature Oral (F) 2019-01-27 17:00:00 98.5 F [facility] [place] Heart Rate 2019-01-27 17:00:00 [facility] [place] Respitory Rate 2019-01-27 17:00:00 Memori al [place] Height 2019-01-22 14:35:00 157.48 cm Jeanne Somers BMI Calculated 2019-01-22 14:35:00 Wicho Gale Weight 2019-01-22 14:35:00 Jeanne Somers Weight 2019-01-22 04:34:00 Jeanne Somers Procedures This patient has no known procedures. Encounters Start End Encounter Admission Attending Care Care Encounter Source Date/Time Date/Time Type Type Clinicians Facility Department ID 2019-01-22 Inpatient E [facility] MED [id number] 04:39:00 2019-01-21 2019-01-27 Outpatient Dav [facility] [id number] 23:33:00 23:40:00 Ed 00 2018-02-21 2018-02-20 Inpatient E [facility] MED [id number] [address] 14:48:00 13:18:00 [facility] Results Test Description Test Time Test [...] = Expiration Dt) 10-24-2020 N Thyroid Stimulating Apkrovv0911-26-27 08:35:16 Test Item Value Reference Range Interpretation Comments TSH (test code = TSH) 1.170 mIU/mL 0.270-4.200 Lipid Rufhr0391-82-99 08:21:19 Test Item Value Reference Range Interpretation Comments Cholesterol Total 254 mg/dL 0-200 H RISK OF HE ART (test code = DISEASEPublishe d by Cholesterol Total) [place] [employer] Cathie lyte Optimal Borderl ine [...] calculation is LDL/HDL Ratio=L DL Calc/HDL Chol FFRVGBQOWVSZ7043-09-26 08:24:008.6[facility] DkwaofkLYTSFZSQZRZE0785-76-39 08:24:00176Umhbllhj EcaoobsPKVFZJKJLPNG0478-66-76 08:24:0027[facility] Yonis FBWDLBWLZZOJ1990-60-15 08:24:80503Gyxywaql HbzzhnkQTYNYFOFMTOA9625-45-94 08:24:003.6[facility] BiuvnlxZDXJTIGDSAGW4722-71-07 08:24:000.70[facility] [place] XGKZWUBNJMPN0790-11-49 08:24:008.4[facility] XdbeqgmAGGYCDVENCSB5441-46-20 08:24:48336Jlvlriyt RsazlrpQTDSXPQEWQXS0793-55-36 08:24:0086[facility] [place] SUUYLELXJOTE5004-47-92 08:24:006[facility] KwmprdwHMCUBQFQYC2842-92-67 08:24:00 11.6[facility] RlbzadhMEWZTJPCRI6447-73-37 08:24:003.78[facility]annHEMATOLOGY 2019-01-26 08:24:0013.3[facility] FihermhDIKJFHIARN4514-89-45 08:24:0034.0[facility] JtinkgbJKNJGSQUJJ8214-94-90 08:24:006.3[facility] WzjtvxpIERQSGVFZO4776-60-54 08:24:00 Test Item Value Reference Range Interpretation Comments MCH (test code = MCH) 30.7 pg 27.0-31.0 [facility] NesowasDFNHWHTPXQ8486-04-55 08:24:0090.3[facility] HermannHEMATOLOGY 2019-01-26 08:24:0034.2[facility] NadccquGSLDJYTVII6464-77-30 08:24:74569Zbyiudkl DvyongrEYNHXHGGPB1906-78-93 08:24:007.5[facility] HermannCHEM EGMGD7819-28-50 09:14:55552Jijnswbx HermannCHEM EKZQQ4315-10-71 09:14:008.5[facility] HermannCHEM HNDYC2739-53-79 09:14:0013.3[facility] HermannCHEM WBIFE9435-07-14 09:14:0024 [facility] HermannCHEM MAGBY5843-72-26 09:14:01219Rwplmngp HermannCHEM PANEL 2019-01-25 09:14:0081[facility] HermannCHEM TUXJK2786-15-42 09:14:002[facility] HermannCHEM AHPDU1226-04-37 09:14:003.3[facility] HermannCHEM NQRGW2024-99-93 09:14:000.60[facility] HermannCHEM IDZKC7440-36-27 09:14:37391Imhunbmu [place] MOLECULAR DAVTRNSZQL4925-78-91 16:22:00Negative (01/23/19 11:22 AM)[facility] HermannCHEM TFELO5111-09-61 15:42:002.76[facility] HermannCHEM BYNJW4902-26-03 12:32:000.9[facility] HermannCHEM SDWUT8312-78-29 10:50:002.0[facility] HermannCHEM VCCMN8249-95-72 10:50:88229Jlqihvaq HermannCHEM CQWAU4187-45-08 10:50:0023 [facility]annCHEM MFQZK0561-60-77 10:50:84183Tsjbkofp HermannCHEM PANEL 2019-01-23 10:50:003.1[facility] HermannCHEM HVYUP4635-47-16 10:50:27441Hqyafbys HermannCHEM AHYWU7354-45-01 10:50:005[facility] HermannCHEM TECDH5961-93-02 10:50:000.50[facility] HermannCHEM EKOWH4290-94-97 10:50:007.8[facility] HermannCHEM XWVJO7048-36-39 10:50:0083[facility] HermannCHEM BAUGQ5049-71-32 10:50:0010.1 [facility] EvghifmWGFZTTBNCM1807-87-69 10:50:000.2[facility] HermannHEMATOLOGY 2019-01-23 10:50:000.8[facility] LvuxgknZISVYVOYEJ2911-42-42 10:50:005.5[facility] IyvyhlwRXKHTVWGNL9744-64-94 10:50:002.2[facility] NbhtwpdLDOOUNVTQX4997-98-52 10:50:000.1[facility] HawqhseCGRMMDWOXT6452-98-80 10:50:0063.6[facility] [place] MKVXRKWXQF9640-24-22 10:50:008.9[facility] TlsztkcXFWAPOHFTV4687-98-19 10:50:002.3 [facility] KjprexkKGSVVUUIDU4907-14-99 10:50:00Normal (01/23/19 5:50 AM)[facility] RopuywoAJSOQKBWWG9963-16-39 10:50:00Normal (01/23/19 5:50 AM)[facility] Yonis RDDMJBUMWT7709-86-57 10:50:0025.1[facility] JogeishETJUBOLTHR7157-90-32 10:50:00 13.1[facility] GdxbucsFQWLOHEEPF9162-73-52 10:50:67687Pahiwaio HermannHEMATOLOGY 2019-01-23 10:50:007.7[facility] FtecsdeCIGWCCPLVR7730-47-24 10:50:008.6[facility] HanmhbyOVYAYDQBGB1855-11-84 10:50:0010.0[facility] QkunsoaVPTLJXGZVO9904-22-56 10:50:0034.6[facility] GfewyvdKTJBUQLNSB4101-50-03 10:50:0028.7[facility] [place] AUOYFRTACK7689-19-64 10:50:0087.8[facility] YecznkzZBZIAQSYZK3320-86-96 10:50:00 Test Item Value Reference Range Interpretation Comments MCH (test code = MCH) 30.4 pg 27.0-31.0 [facility] BsetltnXJHZCVRRJB6175-07-10 10:50:003.27[facility] HermannCHEM PANEL 2019-01-22 11:32:002.4[facility] HermannCHEM LVJMJ5815-51-47 09:04:003.0[facility] HermannURINE AND JXZEE0299-80-59 07:14:00 Test Item Value Reference Range Interpretation Comments UA Spec Grav (test code = UA Spec 1.014 1 Grav) [facility] AND ZDVID3592-78-17 07:14:00 Test Item Value Reference Range Interpretation Comments UA pH (test code = UA pH) 6.0 1 5.0-8.0 [facility] NUANI0456-03-95 07:14:00Negative (01/22/19 2:14 AM) [facility] VORNQ4673-05-07 07:14:00Negative *NA*(01/22/19 2:14 AM) [facility] GMXYO8187-10-18 07:14:00Negative *NA*(01/22/19 2:14 AM) [facility] NZJXB6071-11-85 07:14:00Negative *NA*(01/22/19 2:14 AM) [facility] VSKPO4055-22-21 07:14:00Negative (01/22/19 2:14 AM) [facility] ZDZSZ6378-72-36 07:14:00Negative (01/22/19 2:14 AM) [facility] PHDXB0800-79-36 07:14:00Negative (01/22/19 2:14 AM) [facility] YJOGW9769-89-54 07:14:00<1[facility] AND FZOYJ9124-67-52 07:14:0025[facility] AND FLZMQ8862-75-39 07:14:002 [facility] WFXMO9629-56-91 07:14:00Light Yellow *NA*(01/22/19 2:14 AM)[facility] AND YNGCL1164-11-63 07:14:00Clear (01/22/19 2:14 AM) [facility] LgecpikPWLHK9101-15-54 05:16:000.90[facility] HermannBLOOD BANK RESULTS 2019-01-22 05:01:00Negative (01/22/19 12:01 AM)[facility] HermannCARDIAC ENZYMES 2019-01-22 05:01:00<0.02[facility] HermannCARDIAC IBNAZFO2774-41-66 05:01:0049 [facility] HermannCHEM RSDQK2203-21-39 05:01:000.6[facility] HermannCHEM PANEL 2019-01-22 05:01:54618Lqbxyqyp HermannCHEM AGTRZ6657-94-33 05:01:004.0[facility] HermannCHEM MYQTE4903-00-09 05:01:0017[facility] HermannCHEM DHZCX7629-18-61 05:01:0025[facility] HermannCHEM ZDXRW4537-38-54 05:01:008.1[facility] HermannCHEM DSWDS6302-58-20 05:01:00 Test Item Value Reference Range Interpretation Comments B/C Ratio (test code = B/C Ratio) 20 1 6-25 [facility] HermannCHEM ECEWR9235-58-72 05:01:00 Test Item Value Reference Range Interpretation Comments A/G Ratio (test code = A/G Ratio) 1.0 1 0.7-1.6 [facility]annCHEM RYVXO5584-69-07 05:01:004.1[facility] HermannCHEM PANEL 2019-01-22 05:01:006.90[facility] CbpwhhtZQINNZPVRCJTW4256-80-86 05:01:00Negative *NA*(01/22/19 12:01 AM)[facility] TncjzwcFKNHGMPJAU5285-20-41 05:01:000.1[facility] IshiqwkDDRWMMSJVE5281-85-26 05:01:000.7[facility] KqbnnndHUVPPATBYH5094-84-63 05:01:000.0[facility] GqnknwgATMTBWISIO8534-07-72 05:01:000.0[facility] Yonis JIJFUYQDZA0437-83-12 05:01:000.9[facility] VxnylveKJSEERFZKC8660-89-47 05:01:008.6 [facility] BuxhyyaWZGJDQZQOD3080-37-53 05:01:000.6[facility] HermannHEMATOLOGY 2019-01-22 05:01:0086.5[facility] WtpckhgQCDQLRZDWN2452-71-99 05:01:005.7[facility] HeecaovQBVFMQDNKO5616-50-10 05:01:006.9[facility] MmhzixuKVNRPWZDOW9582-64-29 05:01:009.9[facility] RznruzvKWSBWOQVQS3014-25-42 05:01:0032.8[facility] Yonis TBKMUPDABV0885-57-17 05:01:0013.6[facility] WwobbalRBFGHFKLDR7210-03-95 05:01:00 443[facility] LylkkmmTRMFOZWASW9686-21-32 05:01:007.3[facility] HermannHEMATOLOGY 2019-01-22 05:01:0014.0[facility] JtzrxghAYFHZCTDWN2429-41-28 05:01:004.85[facility] MpqsgldYXDANHROWD8455-17-48 05:01:0042.7[facility] RvaeqquTCSECAEWLQ5506-69-56 05:01:00 Test Item Value Reference Range Interpretation Comments MCH (test code = MCH) 29.0 pg 27.0-31.0 [facility] HospitalZqdfjabEEHSBEJTZI4602-28-21 05:01:0088.2[facility] HermannHEMATOLOGY 2019-01-22 05:01:00 Test Item Value Reference Range Interpretation Comments INR (test code = INR) 0.96 1 0.85-1.17 [facility] HospitalUuskodxHIVRSGMQOW8033-70-00 05:01:00 Test Item Value Reference Range Interpretation Comments PT (test code = PT) 12.6 s 12.0-14.7 [facility]PIATHFSMK5239-87-79 05:01:00 Test Item Value Reference Range Interpretation Comments PTT (test code = PTT) 25.9 s 22.9-35.8 [facility] CenterCemzxjmPAM2S2401-62-00 14:36:00 Test Item Value Reference Range Interpretation [...] 0.00-0.01 N code = ETOHU) Comprehensive Metabolic Weula9792-29-59 14:36:00 Test Item Value Reference Range Interpretation [...] validated by th e MDRD study and shoul d be interpretedwith caution.eGFR Re sult Interpretation: eGFR > or = 60 is in t he Normal RangeeGF R < 60 may mean kidney diseaseeGFR < 1 5 may mean kidney failureRange s recommended by the National Kidney Foundation,http ://nkd ep.nih.gov Urinalysis Svbmoghi2528-98-44 14:32:00 Test Item Value Reference Range Interpretation Comments Color (test code = COLOR) Yellow Yellow,Straw,Pl N yellow Clarity (test code = Clear Clear N CLAR) Specific Ferdinand (test 1.024 1.001-1.035 N code = SPGR) [...] code = Few /HPF BACT) CBC with Dusuwraxoygu1151-86-34 14:21:00 Test Item Value Reference Range Interpretation [...] code = ALYMPH) 3.0 K/cumm 0.5-4.6 N Will Abs (test code = AMONO) 0.5 K/cumm 0.0-1.2 N Eos Abs (test code = AEOS) 0.19 K/cumm 0.00-0.74 N Baso Abs (test code = ABASO) 0.1 K/cumm 0.00-0.21 N
[2020-03-29] MEDS ORDERED: HALOPERIDOL LACT 5 MG/ML INJ ONE (12:00)
[2020-03-29] MEDS ORDERED: NA CHLORIDE 0.9% 1,000 ML ONE (12:00)
[2020-03-29] MEDS ORDERED: ONDANSETRON 4 MG/2 ML VIAL ONE (12:22)
[2020-03-29] MEDS ORDERED: LORazepam 2 MG/ML VIAL ONE (12:22)
[2020-03-29] MEDS ORDERED: PROMETHAZINE INJ 25 MG/ML AMP ONE (12:59)
[2020-03-29] MEDS ORDERED: DIPHENHYDRAMINE 50 MG/ML VIAL ONE (12:59)
--- NOTE | 2020-03-29 13:20 | EDPHYS ---
Physician Documentation [facility] Name: Tiffany Quinn Age: 49 yrs Sex: Female : 1970 Arrival Date: 03/29/2020 Time: 11:09 Bed 7 Private MD: ED Physician Manuel Ward HPI: 03/29 12:36 The patient presents to the emergency department with anxiety. Onset: The jmm symptoms/episode began/occurred today. Past psychiatric history: Prior diagnosis: bipolar disorder. Associated signs and symptoms: Pertinent positives; shortness of breath. Patient presents to the ED with complaints of anxiety and shortness of breath beginning this morning after drinking multiple cups of coffee. Patient had appt with pcp but unable to follow through due to anxiety and called ems. Patient was evaluated yesterday for similar episode. . 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 - Social history:: Smoking status: Patient denies any tobacco usage or history of. ROS: 12:36 Constitutional: Negative for fever, chills, and weight loss, Cardiovascular: Negative jmm for chest pain, palpitations, and edema. 12:36 Respiratory: Positive for shortness of breath. 12:36 All other systems are negative. Exam: 12:36 Constitutional: This is a well developed, well nourished patient who is awake, alert, jmm and in no acute distress. Head/Face: atraumatic. Eyes: EOMI, no conjunctival erythema appreciated ENT: Moist Mucus Membranes Neck: Trachea midline, Supple Chest/axilla: Normal chest wall appearance and motion. Cardiovascular: Regular rate and rhythm. No edema appreciated Respiratory: Normal respirations, no respiratory distress appreciated Abdomen/GI: Non distended, soft Back: Normal ROM Skin: General appearance color normal MS/ Extremity: Moves all extremities, no obvious deformities appreciated, no edema noted to the lower extremities Neuro: Awake and alert, normal gait 12:36 Psych: Behavior/mood is anxious. Vital Signs: 11:10 BP 140 / 90; Pulse 91; Resp 18; Temp 98.5; Pulse Ox 99% on R/A; Weight 72.57 kg; Height ph 5 ft. 2 in. (157.48 cm); 13:48 BP 134 / 87; Pulse 89; Resp 16; Pulse Ox 98% on R/A; iw 11:10 Body Mass Index 29.26 (72.57 kg, 157.48 cm) ph MDM: 11:47 Patient medically screened. jmm 12:38 Data reviewed: vital signs, nurses notes. Counseling: I had a detailed discussion with jmm the patient and/or guardian regarding: the historical points, exam findings, and any diagnostic results supporting the discharge/admit diagnosis. 13:19 Counseling: I had a detailed discussion with the patient and/or guardian regarding: the jmm need for outpatient follow up, to return to the emergency department if symptoms worsen or persist or if there are any questions or concerns that arise at home. ED course: Patient advised to follow up with PCP Patient is otherwise given strict return precautions. Patient understood and agrees with the plan of care. . Administered Medications: 11:55 Drug: NS 0.9% 1000 ml Route: IV; Rate: 1 bolus; Site: left hand; ph 11:55 Drug: HALdol 5 mg Route: IVP; Site: left hand; ph 13:18 Follow up: Response: No adverse reaction; Anxiety unchanged ph 12:21 Drug: Ativan 1 mg Route: IVP; Site: left hand; iw 13:18 Follow up: Response: No adverse reaction; Anxiety unchanged ph 12:21 Drug: Zofran (Ondansetron) 4 mg Route: IVP; Site: left antecubital; iw 13:20 Follow up: Response: No adverse reaction; Nausea unchanged ph 13:08 Drug: Promethazine 12.5 mg Route: IVP; Site: left hand; ph 13:20 Follow up: Response: No adverse reaction ph 13:09 Drug: diphenhydrAMINE 25 mg Route: IVP; Site: left hand; ph 13:20 Follow up: Response: No adverse reaction ph 13:11 Drug: Ativan 1 mg Route: IVP; Site: left hand; ph Disposition: 14:02 Co-signature as Attending Physician, Manuel Ward MD. rn Disposition: 03/29/20 13:20 Discharged to Home. Impression: Anxiety disorder, unspecified. - Condition is Stable. - Discharge Instructions: Panic Attacks. - Medication Reconciliation Form, Thank You Letter, Antibiotic Education, Prescription Opioid Use form. - Follow up: Private Physician; When: 2 - 3 days; Reason: Recheck today's complaints, Continuance of care, Re-evaluation by your physician. Signatures: Bernard Rodriguez PA PA jmm Williams, Irene, JIGNA RN iw Manuel Ward MD MD rn HarrisYana RN RN ph Corrections: (The following items were deleted from the chart) 13:49 13:20 03/29/2020 13:20 Discharged to Home. Impression: Anxiety disorder, unspecified. iw Condition is Stable. Forms are Medication Reconciliation Form, Thank You Letter, Antibiotic Education, Prescription Opioid Use. Follow up: Private Physician; When: 2 - 3 days; Reason: Recheck today's complaints, Continuance of care, Re-evaluation by your physician. [email or web address]
--- NOTE | 2020-03-29 13:20 | ER ---
Nurse's Notes [facility] Name: Tiffany Quinn Age: 49 yrs Sex: Female : 1970 Arrival Date: 03/29/2020 Time: 11:09 Bed 7 Private MD: Diagnosis: Anxiety disorder, unspecified Presentation: 03/29 11:10 Chief complaint: EMS states: Pt called EMS for panic attack, c/o SOB and nausea, seen ph in ED multiple times in the last month for similar complaint, pt states, " I took my Ativan at 1000, I've been taking it every 8 hours like they said too, I think the dose may be too low. I had a phone appointment w/ my doctor this morning at 0845 but he was running behind." Pt also admits to drinking 3 cups of coffee this morning to "help go pee". Denies chest pain. Coronavirus screen: Patient denies a cough. Patient denies shortness of breath or difficulty breathing. Patient denies measured and/or subjective temperature greater than 100.4F prior to today's visit. Patient denies travel on a cruise ship or to a country the [facility] currently lists as an affected area. Patient denies contact with known and/or suspected case of COVID-19. Ebola Screen: No symptoms or risks identified at this time. Initial Sepsis Screen: Does the patient meet any 2 criteria? No. Patient's initial sepsis screen is negative. Does the patient have a suspected source of infection? No. Patient's initial sepsis screen is negative. Risk Assessment: Do you want to hurt yourself or someone else? Patient reports no desire to harm self or others. Onset of symptoms was March 29, 2020. 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 - Social history:: Smoking status: Patient denies any tobacco usage or history of. Screenin:15 Abuse screen: Denies threats or abuse. Denies injuries from another. Nutritional ph screening: No deficits noted. Tuberculosis screening: No symptoms or risk factors identified. Fall Risk None identified. Assessment: 11:35 General: Appears in no apparent distress. comfortable, Behavior is cooperative, ph appropriate for age, anxious, restless. Pain: Denies pain. Neuro: Level of Consciousness is awake, alert, obeys commands, Oriented to person, place, time, situation. Cardiovascular: Capillary refill < 3 seconds Patient's skin is warm and dry. Respiratory: Reports shortness of breath at rest Airway is patent Respiratory effort is even, unlabored, Respiratory pattern is regular, symmetrical. GI: Reports nausea, Patient currently denies abdominal pain, diarrhea. Derm: Skin is intact, is healthy with good turgor, Skin is pink, warm \\T\\ dry. 12:10 Reassessment: Patient appears in no apparent distress at this time. Patient and/or ph family updated on plan of care and expected duration. Pain level reassessed. Patient is alert, oriented x 3, equal unlabored respirations, skin warm/dry/pink. Pt states, " The medicine you gave me isn't helping, do you think I can get something else for anxiety and for nausea?" ERP notified, see MAR. 12:48 Reassessment: Patient appears in no apparent distress at this time. Patient and/or ph family updated on plan of care and expected duration. Pain level reassessed. Patient is alert, oriented x 3, equal unlabored respirations, skin warm/dry/pink. Pt appears more relaxed, no longer restless, states, " I still feel nauseous, can I get some phenergan? It's stronger than Zofran.". 13:48 Reassessment: Patient appears in no apparent distress at this time. Patient states iw feeling better. Patient states symptoms have improved. Vital Signs: 11:10 BP 140 / 90; Pulse 91; Resp 18; Temp 98.5; Pulse Ox 99% on R/A; Weight 72.57 kg; Height ph 5 ft. 2 in. (157.48 cm); 13:48 BP 134 / 87; Pulse 89; Resp 16; Pulse Ox 98% on R/A; iw 11:10 Body Mass Index 29.26 (72.57 kg, 157.48 cm) ph ED Course: 11:09 Patient arrived in ED. ph 11:14 Triage completed. ph 11:15 Arm band placed on Patient placed in an exam room, on a stretcher. ph 11:16 Yana Harris, RN is Primary Nurse. ph 11:16 Patient has correct armband on for positive identification. Bed in low position. Call ph light in reach. Side rails up X 1. Pulse ox on. NIBP on. Door closed. Noise minimized. Warm blanket given. Head of bed elevated. 11:36 Bernard Rodriguez PA is PHCP. [facility] 11:36 Manuel Ward MD is Attending Physician. [facility] 11:50 Missed attempt(s): 22 gauge in right hand. Bleeding controlled, band aid applied, dh3 catheter tip intact. 11:54 Inserted saline lock: 24 gauge in left hand, using aseptic technique. dh3 13:48 No provider procedures requiring assistance completed. IV discontinued, intact, iw bleeding controlled, No redness/swelling at site. Pressure dressing applied. Administered Medications: 11:55 Drug: NS 0.9% 1000 ml Route: IV; Rate: 1 bolus; Site: left hand; ph 11:55 Drug: HALdol 5 mg Route: IVP; Site: left hand; ph 13:18 Follow up: Response: No adverse reaction; Anxiety unchanged ph 12:21 Drug: Ativan 1 mg Route: IVP; Site: left hand; iw 13:18 Follow up: Response: No adverse reaction; Anxiety unchanged ph 12:21 Drug: Zofran (Ondansetron) 4 mg Route: IVP; Site: left antecubital; iw 13:20 Follow up: Response: No adverse reaction; Nausea unchanged ph 13:08 Drug: Promethazine 12.5 mg Route: IVP; Site: left hand; ph 13:20 Follow up: Response: No adverse reaction ph 13:09 Drug: diphenhydrAMINE 25 mg Route: IVP; Site: left hand; ph 13:20 Follow up: Response: No adverse reaction ph 13:11 Drug: Ativan 1 mg Route: IVP; Site: left hand; ph Outcome: 13:20 Discharge ordered by MD. fonseca 13:48 Discharged to home ambulatory, with family. iw 13:48 Condition: good 13:48 Discharge instructions given to patient, Instructed on discharge instructions, follow up and referral plans. Demonstrated understanding of instructions, follow-up care. 13:49 Patient left the ED. iw Signatures: Bernard Rodriguez PA PA jmm Williams, Irene, RN RN Yana Harris RN RN Allyson Jara 3 Corrections: (The following items were deleted from the chart) 13:18 13:17 Response: No adverse reaction; Anxiety unchanged ph ph 13:20 13:05 Response: No adverse reaction ph ph
[2020-03-29 14:18] VITALS: TEMP 98.5
[2020-03-29 14:23] VITALS: BP 134/87; O2SAT 98
== END 2020-03-29 13:49 | disposition home or self-care (01) ==
LOC: ER 11:07
DX: F41.9 Anxiety disorder, unspecified (principal)
CPT/HCPCS: 96375; 96374; 99284; J1630; J2550; J1200; J7030; J2405

== ENCOUNTER 2020-04-01 10:20 | Emergency (ER) | payer OTHER ==
[2020-04-01] MEDS ORDERED: PROMETHAZINE 25 MG TABLET ONE (10:53)
[2020-04-01] MEDS ORDERED: LORAZEPAM 1 MG TABLET ONE (10:53)
--- NOTE | 2020-04-01 11:46 | EDPHYS ---
Physician Documentation [facility] Name: Tiffany Quinn Age: 49 yrs Sex: Female : 1970 Arrival Date: 04/01/2020 Time: 10:22 Bed 20 Private MD: ED Physician Demarcus Mancilla HPI: 04/02 07:34 This 49 yrs old Female presents to ER via EMS with complaints of anxious. kdr 07:34 The patient presents to the emergency department with anxiety, over unknown kdr circumstances. Onset: The symptoms/episode began/occurred gradually, 1 week(s) ago, Now out of her meds. Past psychiatric history: Psychiatric medications include: Ativan, the patient has not had a prior suicide gesture. Associated signs and symptoms: The patient has no apparent associated signs or symptoms. Severity of symptoms: At their worst the symptoms were mild in the emergency department the symptoms are unchanged. The patient has experienced similar episodes in the past, multiple times, chronically. The patient has been recently seen by a physician: The patient has been recently seen at the [facility] Emergency Department, last week. 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 - Social history:: Smoking status: unknown. ROS: 04/02 07:34 Constitutional: Negative for fever, chills, and weight loss, Eyes: Negative for injury, kdr pain, redness, and discharge, ENT: Negative for injury, pain, and discharge, Neck: Negative for injury, pain, and swelling, Cardiovascular: Negative for chest pain, palpitations, and edema, Respiratory: Negative for shortness of breath, cough, wheezing, and pleuritic chest pain, Abdomen/GI: Negative for abdominal pain, nausea, vomiting, diarrhea, and constipation, Back: Negative for injury and pain, : Negative for injury, bleeding, discharge, and swelling, MS/Extremity: Negative for injury and deformity, Skin: Negative for injury, rash, and discoloration, Neuro: Negative for headache, weakness, numbness, tingling, and seizure activity. Allergy/Immunology: Negative for hives, rash, and allergies, Endocrine: Negative for neck swelling, polydipsia, polyuria, polyphagia, and marked weight changes, Hematologic/Lymphatic: Negative for swollen nodes, abnormal bleeding, and unusual bruising. Psych: Positive for anxiety, Negative for depression, drug dependence, alcohol dependence, auditory hallucinations, visual hallucinations, homicidal ideation, insomnia, suicide gesture, suicidal ideation. Exam: 07:34 Constitutional: This is a well developed, well nourished patient who is awake, alert, kdr and in mild distress. Head/Face: Normocephalic, atraumatic. Eyes: Pupils equal round and reactive to light, extra-ocular motions intact. Lids and lashes normal. Conjunctiva and sclera are non-icteric and not injected. Cornea within normal limits. Periorbital areas with no swelling, redness, or edema. Neck: Trachea midline, no thyromegaly or masses palpated, and no cervical lymphadenopathy. Supple, full range of motion without nuchal rigidity, or vertebral point tenderness. No Meningismus. Chest/axilla: Normal chest wall appearance and motion. Nontender with no deformity. No lesions are appreciated. Cardiovascular: Regular rate and rhythm with a normal S1 and S2. No gallops, murmurs, or rubs. Normal PMI, no JVD. No pulse deficits. Respiratory: Lungs have equal breath sounds bilaterally, clear to auscultation and percussion. No rales, rhonchi or wheezes noted. No increased work of breathing, no retractions or nasal flaring. Abdomen/GI: Soft, non-tender, with normal bowel sounds. No distension or tympany. No guarding or rebound. No evidence of tenderness throughout. Back: No spinal tenderness. No costovertebral tenderness. Full range of motion. Skin: Warm, dry with normal turgor. Normal color with no rashes, no lesions, and no evidence of cellulitis. MS/ Extremity: Pulses equal, no cyanosis. Neurovascular intact. Full, normal range of motion. Neuro: Awake and alert, GCS 15, oriented to person, place, time, and situation. Cranial nerves II-XII grossly intact. Motor strength 5/5 in all extremities. Sensory grossly intact. Cerebellar exam normal. Normal gait. 07:34 Psych: Behavior/mood is pleasant, cooperative, anxious, Affect is animated, Oriented to person, place, time, Patient has no thoughts/intents to harm self or others. Judgement / Insight is normal. Delusions/hallucinations are not present. Vital Signs: 04/01 10:29 BP 139 / 87; Pulse 105; Resp 22; Temp 98.6; Pulse Ox 99% on R/A; Weight 77.11 kg; em Height 5 ft. 2 in. (157.48 cm); 10:51 BP 119 / 84; Pulse 85; Resp 20 S; Pulse Ox 97% on R/A; ca1 11:45 BP 135 / 83; Pulse 84; Resp 15 S; Pulse Ox 98% on R/A; ca1 10:29 Body Mass Index 31.09 (77.11 kg, 157.48 cm) em MDM: 11:45 Patient medically screened. kdr 04/02 07:34 Data reviewed: vital signs, nurses notes. Counseling: I had a detailed discussion with kdr the patient and/or guardian regarding: the historical points, exam findings, and any diagnostic results supporting the discharge/admit diagnosis, the need for outpatient follow up. Administered Medications: 04/01 10:45 Drug: Ativan 1 mg Route: PO; ca1 11:30 Follow up: Response: No adverse reaction; Anxiety decreased ca1 10:46 Drug: Phenergan 25 mg Route: PO; ca1 11:30 Follow up: Response: No adverse reaction; Nausea is decreased ca1 Disposition: 04/01/20 11:45 Discharged to Home. Impression: Anxiety disorder, unspecified. - Condition is Stable. - Discharge Instructions: Panic Attacks, [id number], Generalized Anxiety Disorder. - Prescriptions for Ativan 1 mg Oral Tablet - take 1 tablet by ORAL route every 8 hours As needed; 10 tablet. promethazine 25 mg Oral Tablet - take 1 tablet by ORAL route every 6 hours As needed; 10 tablet. - Medication Reconciliation Form, Thank You Letter form. - Follow up: Private Physician; When: 2 - 3 days; Reason: If symptoms return, Further diagnostic work-up, Recheck today's complaints, Continuance of care, Re-evaluation by your physician. - Problem is an acute exacerbation. - Symptoms have improved. Signatures: Demarcus Mancilla MD MD kdr Ari Weinstein, RN RN em Rosangela Macias RN RN ca1 Corrections: (The following items were deleted from the chart) 12:00 11:45 04/01/2020 11:45 Discharged to Home. Impression: Anxiety disorder, unspecified. ca1 Condition is Stable. Forms are Medication Reconciliation Form, Thank You Letter, Antibiotic Education, Prescription Opioid Use. Follow up: Private Physician; When: 2 - 3 days; Reason: If symptoms return, Further diagnostic work-up, Recheck today's complaints, Continuance of care, Re-evaluation by your physician. Problem is an acute exacerbation. Symptoms have improved. kdr
--- NOTE | 2020-04-01 11:46 | ER ---
Nurse's Notes [facility] Name: Tiffany Quinn Age: 49 yrs Sex: Female : 1970 Arrival Date: 04/01/2020 Time: 10:22 Bed 20 Private MD: Diagnosis: Anxiety disorder, unspecified Presentation: 04/01 10:29 Chief complaint: EMS states: was seen here recently for abdominal pain, pt reports also em needing her Ativan script refilled because she has been unable to see her dr. Coronavirus screen: Proceed with normal triage. Ebola Screen: Patient negative for fever greater than or equal to 101.5 degrees Fahrenheit, and additional compatible Ebola Virus Disease symptoms Patient denies exposure to infectious person. Patient denies travel to an Ebola-affected area in the 21 days before illness onset. No symptoms or risks identified at this time. Initial Sepsis Screen: Does the patient meet any 2 criteria? RR > 20 per min. HR > 90 bpm. No. Patient's initial sepsis screen is negative. Does the patient have a suspected source of infection? No. Patient's initial sepsis screen is negative. Risk Assessment: Do you want to hurt yourself or someone else? Patient reports no desire to harm self or others. Onset of symptoms was April 01, 2020. 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 - Social history:: Smoking status: unknown. Screenin:45 Abuse screen: Denies threats or abuse. Denies injuries from another. Nutritional ca1 screening: No deficits noted. Tuberculosis screening: No symptoms or risk factors identified. Fall Risk None identified. Assessment: 10:45 General: Appears in no apparent distress. comfortable, Behavior is anxious. Pain: ca1 Denies pain. Neuro: Level of Consciousness is awake, alert, obeys commands, Oriented to person, place, time, situation. Cardiovascular: Heart tones S1 S2 present Capillary refill < 3 seconds Patient's skin is warm and dry. Respiratory: Airway is patent Respiratory effort is even, unlabored, Respiratory pattern is regular, symmetrical, Breath sounds are clear bilaterally. GI: Abdomen is round non-distended, Bowel sounds present X 4 quads. Abd is soft and non tender X 4 quads. : No signs and/or symptoms were reported regarding the genitourinary system. EENT: No signs and/or symptoms were reported regarding the EENT system. Derm: Skin is intact, is healthy with good turgor, Skin is pink, warm \T\ dry. Musculoskeletal: Circulation, motion, and sensation intact. Capillary refill < 3 seconds. 11:45 Reassessment: Patient appears in no apparent distress at this time. Patient and/or ca1 family updated on plan of care and expected duration. Pain level reassessed. Patient is alert, oriented x 3, equal unlabored respirations, skin warm/dry/pink. General: Behavior is calm, cooperative, appropriate for age. 11:45 Reassessment: Patient states feeling better. ca1 Vital Signs: 10:29 BP 139 / 87; Pulse 105; Resp 22; Temp 98.6; Pulse Ox 99% on R/A; Weight 77.11 kg; em Height 5 ft. 2 in. (157.48 cm); 10:51 BP 119 / 84; Pulse 85; Resp 20 S; Pulse Ox 97% on R/A; ca1 11:45 BP 135 / 83; Pulse 84; Resp 15 S; Pulse Ox 98% on R/A; ca1 10:29 Body Mass Index 31.09 (77.11 kg, 157.48 cm) em ED Course: 10:22 Patient arrived in ED. em1 10:25 Demarcus Mancilla MD is Attending Physician. kdr 10:31 Triage completed. em 10:32 Rosangela Macias RN is Primary Nurse. ca1 10:33 Arm band placed on. em 10:45 Patient has correct armband on for positive identification. Bed in low position. Call ca1 light in reach. Side rails up X2. Pulse ox on. NIBP on. Warm blanket given. 11:59 No provider procedures requiring assistance completed. Patient did not have IV access ca1 during this emergency room visit. Administered Medications: 10:45 Drug: Ativan 1 mg Route: PO; ca1 11:30 Follow up: Response: No adverse reaction; Anxiety decreased ca1 10:46 Drug: Phenergan 25 mg Route: PO; ca1 11:30 Follow up: Response: No adverse reaction; Nausea is decreased ca1 Outcome: 11:45 Discharge ordered by . kdr 12:00 Discharged to home ambulatory. ca1 12:00 Condition: stable 12:00 Discharge instructions given to patient, Instructed on discharge instructions, follow up and referral plans. no drinking with medication, no driving heavy equipment, medication usage, Demonstrated understanding of instructions, follow-up care, medications, Prescriptions given X 2. 12:00 Patient left the ED. ca1 Signatures: Demarcus Mancilla MD MD kdr Munoz, Edgar, RN RN Ryan Roberts Cheryl, RN RN ca1
[2020-04-01 12:10] VITALS: TEMP 98.6
[2020-04-01 12:20] VITALS: BP 135/83; O2SAT 98
--- OUTSIDE RECORDS SUMMARY | 2020-04-01 13:32 | XMS REPORT | Continuity of Care Document ---
:1970 Author Organization [employer] Care Team Providers Name Role Phone [employer] Unavailable Un available Problems Problem Status Onset [...] tab, Active hydrochloride PO, Q6H, PRN 2018 [facility] 50 MG Oral Pain Score Tablet 1-3, X 5 day, # 20 tab, 0 Refill(s) Metronidazole 500 mg = 1 Active 500 MG Oral tab, PO, 2019 [facility] Tablet [id number], X 4 day, # 12 tab, 0 Refill(s) ciprofloxacin 500 mg = 1 Active 500 mg oral tab, PO, 2019 [facility] tablet [id number], X 4 day, # 8 tab, 0 Refill(s) Potassium Notes: (Same Inactive Chloride as: K-Dur 20) 2018 [facility] "Do Not Crush" Give with food and full glass of water For patients unable to swallow tablet, dissolve in one half glass of water. Allow about 2 minutes for the tablets to disintegrate. Stir before giving to prepare slurry and administer. Please exclude Patient’ s with feeding tube less than 14 Cuban (Dobhoff, J-tube etc) and pediatric and patients. Strattera 0.5 mg/kg, No Longer Route: PO, Active 2018 [facility] QAM, Dosing Weight 75, kg, Start date: 01/24/19 9:00:00 CDT, Duration: 30 day, Stop date: 02/22/19 9:00:00 CDT lithium Notes: Do not No Longer crush or chew. Active 2018 [facility] (Same as: Eskalith-CR) Risperdal Notes: (Same No Longer as: Risperdal) Active 2018 [facility] Strattera 1 mg, Route: No Longer PO, QPM, Active 2018 [facility] Dosing Weight 75, kg, Start date: 01/23/19 17:00:00 CDT, Duration: 30 day, Stop date: 02/21/19 17:00:00 CDT normal saline 1,000 mL, No Longer 0.9% IV 1,000 Rate: 100 [facility], Infuse over: 10 hr, Route: IV, Dosing Weight 75 kg, Total Volume: 1,000, Start date: 01/23/19 14:18:00 CDT, Duration: 30 day, Stop date: 02/22/19 14:17:00 CDT, 1.84, m2 Clonazepam Notes: (Same No Longer As: KlonoPIN) Active 2018 [facility] Flagyl Notes: (Same No Longer as: Flagyl) Active 2018 [facility] Take with food/ avoid alcohol Cipro Notes: May No Longer interfere Active 2018 [facility] w/enteral feedings - Take 1 hr before or 2 hrs after antacids, dairy pdt & minerals. On empty stomach. tramadol 50 mg = 1 tab, No Longer hydrochloride PO, Q6H, PRN Active 2018 [facility] 50 MG Oral Pain Score Tablet 1-3, 0 Refill(s) potassium 40 mEq, PO, Active chloride 20 mEq ONCE, 0 2018 [facility] oral tablet, Refill(s) extended release Metronidazole 500 mg, PO, No Longer 500 MG Oral [id number], 0 Active 2018 [facility] Tablet [Flagyl] Refill(s) Ciprofloxacin 500 mg, PO, No Longer 500 MG Oral [id number], 0 Active 2018 [facility] Tablet [Cipro] Refill(s) Potassium Notes: (Same Inactive Chloride as: K-Dur 20) 2019 [facility] "Do Not Crush" Give with food and full glass of water For patients unable to swallow tablet, dissolve in one half glass of water. Allow about 2 minutes for the tablets to disintegrate. Stir before giving to prepare slurry and administer. Please exclude Patient’ s with feeding tube less than 14 Cuban (Dobhoff, J-tube etc) and pediatric and patients. Pepcid Notes: (Same No Longer as: Pepcid) Active 2018 [facility] Strattera 0.5 mg/kg, PO, Active QAM, 0 2018 [facility] Refill(s) lithium 450 mg 450 mg = 1 Active oral tablet, tab, PO, 2018 [facility] extended Bedtime, # 60 release tab, 0 Refill(s) clonazePAM 0.5 0.5 mg = 1 Active mg oral tablet tab, PO, TID, 2018 [facility] # 90 tab, 0 Refill(s) Risperidone 0.5 0.5 mg = 1 Active MG Oral Tablet tab, PO, BID, 2018 [facility] [Risperdal] 0 Refill(s) Zosyn Notes: (Same No Longer as: Zosyn) Active 2018 [facility] Dosing based on Piperacillin component MEDICATION WASTE Product Size: 3375 mg Product Wasted: ___ mg Tramadol Notes: Not to No Longer exceed Active 2018 [facility] 400mg/day. (Same As: Ultram) normal saline 1,000 mL, No Longer 0.9% IV 1,000 Rate: 150 Active 2018 [facility] t mL ml/hr, Infuse over: 6.7 hr, Route: IV, Dosing Weight 75.994 kg, Total Volume: 1,000, Start date: 01/22/19 4:48:00 CDT, Duration: 30 day, Stop date: 02/21/19 4:47:00 CDT Ondansetron Notes: (Same No Longer as: Zofran) Active 2018 [facility] MEDICATION WASTE Product Size: 4 mg Product Wasted: ___ mg Glucagon 1 mg, Route: No Longer IM, Drug form: Active 2018 [facility] PDR/INJ, PRN, Dosing Weight 75.994, kg, PRN Blood Glucose Results, Start date: 01/22/19 4:47:00 CDT, Duration: 30 day, Stop date: 02/21/19 4:46:00 CDT Dextrose 50% 12.5 gm, 25 No Longer Syringe mL, Route: Active 2018 [facility] IVP, Drug Form: INJ, Dosing Weight 75.994, kg, PRN, PRN Blood Glucose Results, Start date: 01/22/19 4:47:00 CDT, Duration: 30 day, Stop date: 02/21/19 4:46:00 CDT Zofran Notes: (Same Inactive as: Zofran) 2018 [facility] MEDICATION WASTE Product Size: 4 mg Product Wasted: ___ mg NS (Bolus) IV 1,000 mL, Inactive 1,000 ml/hr, 2018 [facility] Infuse Over: 1 hr, Route: IV, 1,000, Drug form: INJ, ONCE, Priority: STAT, Dosing Weight 75.994 kg, Start date: 01/22/19 3:52:00 CDT, Stop date: 01/22/19 3:52:00 CDT Visipaque 320 Notes: (Same Inactive mg/mL as: 2019 [facility] injectable Visipaque). solution WASTE: F/P - Black; E - [employer] Zosyn Notes: (Same Inactive as: Zosyn) 2018 [facility] Dosing based on Piperacillin component MEDICATION WASTE Product Size: 3375 mg Product Wasted: ___ mg NS (Bolus) IV 1,000 mL, Inactive 1,000 ml/hr, 2018 [facility] Infuse Over: 1 hr, Route: IV, 1,000, Drug form: INJ, ONCE, Priority: STAT, Dosing Weight 75.994 kg, Start date: 01/22/19 0:44:00 CDT, Stop date: 01/22/19 0:44:00 CDT Zofran Notes: (Same No Longer as: Zofran) Active 2018 [facility] MEDICATION WASTE Product Size: 4 mg Product Wasted: ___ mg Saline Flush Notes: Same No Longer 0.9% as: BD Active 2018 [facility] Posiflush Sterile NS (Bolus) IV 1,000 mL, No Longer 1,000 ml/hr, Active 2018 [facility] Infuse Over: 1 hr, Route: IV, [...] AGAP 8.6 10.0 - 01/26 ES 20.0 [facility] ELECTROLYT Chloride Lvl 107 95 - 109 01/26 [facility] ELECTROLYT CO2 27 24 - 32 01/26 [facility] ELECTROLYT Sodium Lvl 139 135 - 145 01/26 [facility] ELECTROLYT Potassium 3.6 3.5 - 5.1 01/26 [facility] Lv [facility] ELECTROLYT Creatinine 0.70 0.50 - 01/26 ES Lvl 1.40 [facility] ELECTROLYT Calcium Lvl 8.4 8.5 - 10.5 01/26 [facility] ELECTROLYT eGFR 103 01/26 Result Comment: The [facility] eGFR is calculated using the CKD-EPI [...] Glucose Lvl 86 70 - 99 01/26 [facility] ELECTROLYT BUN 6 7 - 22 01/26 [facility] HEMATOLOGY Hgb 11.6 12.0 - 01/26 MH 16.0 [facility] HEMATOLOGY RBC 3.78 4.20 - 01/26 MH 5.40 /2018 [facility] HEMATOLOGY RDW 13.3 11.5 - 01/26 MH 14.5 [facility] HEMATOLOGY MCHC 34.0 32.0 - 01/26 MH 36.0 [facility] HEMATOLOGY WBC 6.3 3.7 - 10.4 01/26 [facility] HEMATOLOGY MCH 30.7 27.0 - 01/26 MH 31.0 [facility] HEMATOLOGY MCV 90.3 80.0 - 01/26 98.0 [facility] HEMATOLOGY Hct 34.2 36.0 - 01/26 MH 48.0 [facility] HEMATOLOGY Platelet 412 133 - 450 01/26 [facility] HEMATOLOGY MPV 7.5 7.4 - 10.4 01/26 [facility] CHEM PANEL eGFR 108 01/25 [facility] Comment: The [facility] eGFR is calculated using the CKD-EPI [...] Calcium Lvl 8.5 8.5 - 10.5 01/25 [facility] CHEM PANEL AGAP 13.3 10.0 - 01/25 MH 20.0 [facility] CHEM PANEL CO2 24 24 - 32 01/25 [facility] CHEM PANEL Chloride Lvl 109 95 - 109 01/25 [facility] CHEM PANEL Glucose Lvl 81 70 - 99 01/25 [facility] CHEM PANEL BUN 2 7 - 22 01/25 [facility] CHEM PANEL Potassium 3.3 3.5 - 5.1 01/25 [facility] CHEM PANEL Creatinine 0.60 0.50 - 01/25 MH Lvl 1.40 [facility] CHEM PANEL Sodium Lvl 143 135 - 145 01/25 [facility] MOLECULAR C difficile Negative Negative 01/23 DIAGNOSTIC DNA (01/23/19 11:22 AM) [facility] CHEM PANEL Procalcitoni 2.76 0.00 - 01/23 Result n Lvl 0.10 Comment: [facility] Critical Result(s) called to A Levin at 01/23/2019 12:56 by cz. Read back OK. CHEM PANEL Lactic Acid 0.9 0.5 - 2.2 01/23 [facility] CHEM PANEL Magnesium 2.0 1.8 - 2.4 01/23 [facility] CHEM PANEL eGFR 115 01/23 Result Comment: The [facility] eGFR is calculated using the CKD-EPI [...] PANEL CO2 23 24 - 32 01/23 [facility] CHEM PANEL Chloride Lvl 113 95 - 109 01/23 [facility] CHEM PANEL Potassium 3.1 3.5 - 5.1 01/23 [facility] CHEM PANEL Sodium Lvl 143 135 - 145 01/23 [facility] CHEM PANEL BUN 5 7 - 22 01/23 [facility] CHEM PANEL Creatinine 0.50 0.50 - 04 MH Lvl 1.40 /2018 [facility] CHEM PANEL Calcium Lvl 7.8 8.5 - 10.5 01/23 [facility] CHEM PANEL Glucose Lvl 83 70 - 99 01/23 [facility] CHEM PANEL AGAP 10.1 10.0 - 01/23 20.0 /2018 [facility] HEMATOLOGY Eosinophils 0.2 0.0 - 0.5 01/23 # [facility] HEMATOLOGY Monocytes # 0.8 0.0 - 0.8 01/23 [facility] HEMATOLOGY Neutrophils 5.5 1.5 - 8.1 01/23 [facility] HEMATOLOGY Lymphocytes 2.2 1.0 - 5.5 01/23 [facility] HEMATOLOGY Basophils 0.1 0.0 - 1.0 01/23 [facility] HEMATOLOGY Segs 63.6 45.0 - 01/23 75.0 /2018 [facility] HEMATOLOGY Monocytes 8.9 2.0 - 12.0 01/23 [facility] HEMATOLOGY Eosinophils 2.3 0.0 - 4.0 01/23 [facility] HEMATOLOGY RBC Morph Normal 01/23 (01/23/19 5:50 AM) [facility] HEMATOLOGY Plt Morph Normal 01/23 (01/23/19 5:50 AM) [facility] HEMATOLOGY Lymphocytes 25.1 20.0 - 01/23 40.0 [facility] HEMATOLOGY RDW 13.1 11.5 - 01/23 14.5 /2018 [facility] HEMATOLOGY Platelet 327 133 - 450 01/23 [facility] HEMATOLOGY MPV 7.7 7.4 - 10.4 01/23 [facility] HEMATOLOGY WBC 8.6 3.7 - 10.4 01/23 [facility] HEMATOLOGY Hgb 10.0 12.0 - 01/23 Result MH 16.0 Comment: [facility] Notified Raghavendra 01/23/2019 07:32 by smt. HEMATOLOGY MCHC 34.6 32.0 - 04 36.0 /2018 [facility] HEMATOLOGY Hct 28.7 36.0 - 01/23 48.0 /2018 [facility] HEMATOLOGY MCV 87.8 80.0 - 01/23 98.0 /2018 [facility] HEMATOLOGY MCH 30.4 27.0 - 04 31.0 [facility] HEMATOLOGY RBC 3.27 4.20 - 04 5.40 /2019 [facility] Culture: Normal Enteric Pam Isolated 01/22 Stool No Salmonella Or Shigella Isolated [facility] No Campylobacter Isolated CHEM PANEL Lactic Acid 2.4 0.5 - 2.2 01/22 Lvl [facility] CHEM PANEL Lactic Acid 3.0 0.5 - 2.2 01/22 Lvl [facility] URINE AND UA Spec Grav 1.014 <=1.030 01/22 STOOL [facility] URINE AND UA pH 6.0 5.0 - 8.0 01/22 STOOL [facility] URINE AND UA Protein Negative Negative 01/22 STOOL (01/22/19 2:14 AM) [facility] Glucose Negative Negative 01/22 STOOL *NA* /2018 [facility] (01/22/19 2:14 AM) URINE AND UA Ketones Negative Negative 01/22 STOOL *NA* /2018 [facility] (01/22/19 2:14 AM) URINE AND UA Bili Negative Negative 01/22 STOOL *NA* [facility] (01/22/19 2:14 AM) URINE AND UA Nitrite Negative Negative 01/22 STOOL (01/22/19 2:14 AM) /2018 [facility] URINE AND UA <=1.0 0.1 - 1.0 01/22 STOOL Urobilinogen mg/dL [facility] URINE AND UA Sq Epi Occasional Few /LPF 01/22 STOOL /LPF /2018 [facility] URINE AND UA Leuk Est Negative Negative 01/22 STOOL (01/22/19 2:14 AM) /[facility] Blood Negative Negative 01/22 STOOL (01/22/19 2:14 AM) /2018 [facility] URINE AND UA Mucus Few /LPF None Seen 01/22 STOOL /LPF [facility] URINE AND UA RBC <1 0 - 2 01/22 STOOL [facility] URINE AND UA Hyal Cast 25 0 - 2 01/22 STOOL [facility] URINE AND UA WBC 2 0 - 5 01/22 STOOL [facility] URINE AND UA Color Light Yellow Yellow 01/22 STOOL *NA* [facility] (01/22/19 2:14 AM) URINE AND UA Turbidity Clear Clear 01/22 STOOL (01/22/19 2:14 AM) /2018 [facility] est METAL [place] Lvl 0.90 0.50 - 01/22 1.50 /2018 [facility] BLOOD BANK ABO/Rh A POS 01/22 RESULTS /2018 [facility] BLOOD BANK Antibody Negative 01/22 RESULTS Scrn (01/22/19 12:01 AM) /2018 [facility] CARDIAC Troponin-I <0.02 0.00 - 01/22 ENZYMES 0.40 [facility] CARDIAC Total CK 49 12 - 191 01/22 ENZYMES /2018 [facility] CHEM PANEL Bili Total 0.6 0.2 - 1.3 01/22 /2018 [facility] CHEM PANEL Alk Phos 100 39 - 136 01/22 /2018 [facility] CHEM PANEL Albumin Lvl 4.0 3.5 - 5.0 01/22 [facility] CHEM PANEL AST 17 0 - 37 01/22 /2018 [facility] CHEM PANEL ALT 25 0 - 65 01/22 [facility] CHEM PANEL Total 8.1 6.4 - 8.4 01/22 Protein /2018 [facility] CHEM PANEL B/C Ratio 20 6 - 25 01/22 /2018 [facility] CHEM PANEL A/G Ratio 1.0 0.7 - 1.6 01/22 /2018 [facility] CHEM PANEL Globulin 4.1 2.7 - 4.2 01/22 /2018 [facility] CHEM PANEL Procalcitoni 6.90 0.00 - 01/22 Result n Lvl 0.10 Comment: [facility] Critical Result(s) called to Eliana Vega at 01/22/2019 00:50 by VV. Read back OK. ENDOCRINOL S Preg Negative Negative 01/22 OGY *NA* /2018 [facility] (01/22/19 12:01 AM) HEMATOLOGY Eosinophils 0.1 0.0 - 0.5 01/22 MH # /2019 [facility] HEMATOLOGY Monocytes # 0.7 0.0 - 0.8 01/22 /2018 [facility] HEMATOLOGY Basophils # 0.0 0.0 - 0.2 01/22 /2018 [facility] HEMATOLOGY Basophils 0.0 0.0 - 1.0 01/22 /2018 [facility] HEMATOLOGY Eosinophils 0.9 0.0 - 4.0 01/22 /2018 [facility] HEMATOLOGY Neutrophils 8.6 1.5 - 8.1 01/22 # /2019 [facility] HEMATOLOGY Lymphocytes 0.6 1.0 - 5.5 [...] PTT 25.9 22.9 - 01/22 35.8 /2018 [facility] Pathology Reports No Data Provided for [...] dislocation of the left ankl e. SL: [id number] ED Abdomen/Pelvis IV Clinical Indication: Diarrhe a low blood pressure, abdominal pain. 01/22/2019 [facility] contrast only CT Comparison: None [...] Mild sigmoid diverticulosis without diverticu litis. SL: [id number] Chest 1view DX Clinical Indication: Undifferentiated sepsis. [facility] Comparison: None FINDINGS: AP view of the chest submitted for interpretatio n. Lungs are clear. Heart size is normal. Central pulmonary vasculat ure appears normal. No effusion. No pneumothorax. No radiographically apparent acute osseous abnor mality. IMPRESSION: 1. No radiographically apparent acute cardiopulm onary process. SL: [id number] Consultation Notes No Data Provided for This Section Discharge Summaries No Data Provided for This Section History and Physicals No Data Provided for This Section Vital Signs Vital Sign Value Date Comments Source Temperature Oral (F) 98.6 F 01/28/2019 [facility] Systolic (mm Hg) 137 01/28/2019 [facility] t Diastolic (mm Hg) 84 01/28/2019 [facility] st Heart Rate 82 01/28/2019 [facility] Respitory Rate 18 01/28/2019 [facility] Systolic (mm Hg) 113 01/27/2019 [facility] t Diastolic (mm Hg) 72 01/27/2019 [facility] st Heart Rate 77 01/27/2019 [facility] Respitory Rate 18 01/27/2019 [facility] Temperature Oral (F) 98.5 F 01/27/2019 [facility] Systolic (mm Hg) 108 01/27/2019 [facility] t Diastolic (mm Hg) 71 01/27/[address] [facility] [address] Temperature Oral (F) 98.5 F 01/27/2019 [facility] Heart Rate 86 01/27/2019 [facility] Respitory Rate 18 01/27/2019 [facility] Height 157.48 cm 01/22/2019 [facility] BMI Calculated 30.24 01/22/2019 [facility] Weight 75 01/22/2019 [facility] Weight 75.994 01/22/2019 [facility] Encounters Location Location Encounter Encounter Reason Attending ADM [place] Stat us Source Details Type Number For Provider Date Date [facility] [id number] Ed 01/22 01/28 Yonis Sandovalni /2018 [facility] Procedures No Data Provided for This Section Assessment and Plan Assessment and Plan Date Source Extracted from:Title: Discharge Summary 01/28/2019 [facility] Author: Axel Arriaga MD Date: [...] abdominal pain, presented to the ER from [facility] for evaluation of hypotension. She complains of [...] and recommended to be transferred back to [facility]. Physical Exam: Vitals Tmp(F) Pulse BP RR [...] MD on 01/27/2019 15:26 Patient was to [facility] denied her. I spoke to physician at [facility] who has accepted patient. Extracted from:Title: Progress Note Author: Axel Arriaga MD Date: 01/25/19 48 year old female Admitted with hypotension, abdominal pain and sepsis. Was at [facility] for exacerbation of depression/bipolar disorder. Ct abd/pelvis showed mild enterocolitis . CXR and UA are clear.No leucocytosis. But lactic acid and pro-calcitonin elevated and patient was significantly hypotensive on admission. Patient is currently on IV antibiotics and IV fluids. Colitis improving Hypotension secondary to colitis improved with IV fluids Depression and bipolar disorder with re cent admission at [facility] [place] [place] with concern for psychosis Hypokalemia secondary to diarrhea treated Anemia of chronic disease Plan: Will DC IV fluids, will advance diet to regular diet We will continue with Cipro and Flagyl We will replacepotassiump.o. Discussed with psych response team. The ymentioned that patient is having some delusions but otherwiseno suicidal homicidal ideations. They haveclearthe patient to go back to [facility] rehab once medica lly cleared. Exclusionary paperwork is i n the chart to be signed bythe physician once medically cleared. Discussed in MDR's: Likely dischargeto morrowif tolerating regular diet and labs arewnl Extracted from:Title: History and Physical Author: Ed Demarco DO Date: 01/22/19 48 y/o female with history of bipolar di sorder currently admitted at [facility], depression and abdominal hernia brought in via EMS from [facility] for evaluation of hypotension. 1.Severe sepsis(R65.20) Hypotensive [...] History Date Source Social History TypeResponse 01/22/2019 [facility] Smoking Status Light tobacco smoker; Exposure to Tobacc o Smoke None; Cigarette Smoking Last 365 Days No; Reg Smoking Cessation Counseling No entered on: 01/22/19 Family History No Data Provided for This Section Advance Directives No Data Provided for This Section Functional Status No Data Provided for This Section
--- OUTSIDE RECORDS SUMMARY | 2020-04-01 13:36 | XMS REPORT | Continuity of Care Document ---
:1970 Author Organization [facility] t Address [address] [place] [address] Care Team Providers Name Role Phone UNKNOWN Primary Care Physician Unavailable Dav Attending Clinician LOS Attending Clinician Unavailable Dav Admitting Clinician LOS Admitting Clinician Unavailable Problems Condition Condition Condition Status Onset Resolution Last Treating Co mments Source Name Details Category Date Date Treatment Clinician Date LOW PB Diagnosis Active 2019-01-22 Mem oria 01-21 01:52:00 l LOW PB 00:00: Yonis 00 Active 01/21/2019 [facility] INFECTIOUS Diagnosis Active 2019-02-06 Memoria GASTROENTE 3 08:58:00 l RITIS AND 00:00: Page COLITIS INFECTIOUS 00 GASTROENTE RITIS AND COLITIS Active 01/21/2019 [facility] INFECTIOUS Diagnosis Active 2019-02-06 Memoria GASTROENTE 08:58:00 l RITIS AND Page COLITIS, INFECTIOUS GASTROENTE RITIS AND COLITIS, Active [facility] Allergies, Adverse Reactions, Alerts Allergy Allergy Status Severity Reaction(s) Onset Inactive Treating Comm ents Source Name Type Date Date Clinician Phenerga Phenerga Active Wicho Somers Social History Smoking Status Start Date Stop Date Source Social History 2019-01-22 05:00:12 [facility] urena Medications Ordered Filled Start Stop Current Ordering Indication Dosage Frequency Signature Comments Components Source Medication Medication Date Date Medication? Clinician (SIG) Name Name Ondansetron 2019- Yes 4 mg = 1 Me moria 4 MG Oral 4-04 tab, PO, l Tablet 17:35: Q6H, PRN Yonis [Zofran] 00 Nausea/Vom iting, # 20 tab, 0 Refill(s) tramadol 2019- Yes 50 mg = 1 Estrada doni [...] 4-04 tab, PO, l oral tablet 17:35: [id number], X Page 00 4 day, # 8 tab, 0 [...] s with feeding tube less than 14 [place] (Dobhoff, J-tube etc) and pediatric and patients. Strattera No 0.5 mg/kg, Me moria 01-24 Route: PO, l 14:00: QAM, Dosing Weight 75, kg, Start date: 01/24/19 9:00:00 CDT, Duration: 30 day, Stop date: 02/22/19 9:00:00 CDT lithium No Notes: Do Memor ia 01-24 not crush l 02:00: or chew. (Same as: Eskalith-C R) Risperdal No Notes: Memori a 01-23 [...] 1.84, m2 Clonazepam No Notes: Memor ia 01-23 (Same As: l 18:00: KlonoPIN) Yonis Flagyl No Notes: Memoria 01-23 (Same as: l 15:00: Flagyl) Take with food/ avoid alcohol Cipro No Notes: May Memori a 01-23 interfere l 15:00: w/enteral Page 00 feedings - Take 1 hr before [...] PO, ONCE, l mEq oral 14:20: 0 Page tablet, 00 Refill(s) extended release Metronidazo No 500 mg, Mem oria le 500 MG 4-01 PO, l Oral Tablet 14:20: ABXQ8H, 0 H ermann [Flagyl] 00 Refill(s) Ciprofloxac No 500 mg, Mem oria in 500 MG -01 PO, l Oral Tablet 14:20: [id number], 0 Yonis [Cipro] 00 Refill(s) Potassium No Notes: Memori a Chloride 01-23 (Same as: l 14:17: K-Dur 20) "Do Not Crush" Give with food and full glass of water For patients unable to swallow tablet, dissolve in one half glass of water. Allow about 2 minutes for the tablets to disintegra te. Stir before giving to prepare slurry and administer . Please exclude Patient s with feeding tube less than 14 [place] (Dobhoff, J-tube etc) and pediatric and patients. [...] tab, PO, l Tablet 21:08: BID, 0 Page [Risperdal] 00 Refill(s) Zosyn No Notes: Memoria [...] 4:47:00 CDT Ondansetron No Notes: Estrada doni 01-22 (Same as: l 09:47: Zofran) MEDICATION WASTE Product Size: 4 mg Product Wasted: ___ mg Glucagon No 1 mg, Memoria 3-31 Route: IM, l 09:47: Drug form: Page 00 PDR/INJ, PRN, Dosing Weight 75.994, kg, PRN Blood Glucose Results, Start date: 01/22/19 4:47:00 CDT, Duration: 30 day, Stop date: 02/21/19 4:46:00 CDT Dextrose No 12.5 gm, Memor ia 50% Syringe 3- 25 mL, l 09:47: Route: Page 00 IVP, Drug Form: INJ, Dosing Weight 75.994, kg, PRN, PRN Blood Glucose Results, Start date: 01/22/19 4:47:00 CDT, Duration: 30 day, Stop date: 02/21/19 4:46:00 CDT Zofran No Notes: Memoria 3-31 (Same as: l 08:56: Zofran) Yonis 00 MEDICATION WASTE Product Size: 4 mg Product Wasted: ___ mg NS (Bolus) No 1,000 mL, Me moria IV 3-31 1,000 l 08:52: ml/hr, Page 00 Infuse Over: 1 hr, Route: IV, [...] Memoria 3-31 (Same as: l 06:10: Zosyn) Yonis 00 Dosing based on Piperacill in component MEDICATION WASTE Product Size: 3375 mg Product Wasted: ___ mg NS (Bolus) No 1,000 mL, Me moria IV 3-31 1,000 l 05:44: ml/hr, Page 00 Infuse Over: 1 hr, Route: IV, 1,000, Drug form: INJ, ONCE, Priority: STAT, Dosing Weight 75.994 kg, Start date: 01/22/19 0:44:00 CDT, Stop date: 01/22/19 0:44:00 CDT Zofran No Notes: Memoria 01-22 (Same as: l 04:52: Zofran) MEDICATION WASTE Product Size: 4 mg Product Wasted: ___ mg Saline No Notes: Memoria Flush 0.9% 01-22 Same as: l 04:52: BD Yonis Posiflush Sterile NS (Bolus) No 1,000 mL, Me moria IV 01-22 1,000 l 04:51: ml/hr, Page 00 Infuse Over: 1 hr, Route: IV, 1,000, Drug form: INJ, ONCE, Priority: STAT, Dosing Weight 75.994 kg, Start date: 01/21/19 23:51:00 CDT, Stop date: 01/21/19 23:51:00 CDT Vital Signs Vital Name Observation Time Observation Value Comments Source Temperature Oral (F) 2019-01-28 01:16:00 98.6 F [facility] Systolic (mm Hg) 2019-01-28 01:16:00 Estrada rial Yonis Diastolic (mm Hg) 2019-01-28 01:16:00 Mem orial Yonis Heart Rate 2019-01-28 01:16:00 [facility] Page Respitory Rate 2019-01-28 01:16:00 Memori al Yonis Systolic (mm Hg) 2019-01-27 20:42:00 Estrada rial Page Diastolic (mm Hg) 2019-01-27 20:42:00 Mem orial Yonis Heart Rate 2019-01-27 20:42:00 [facility] Yonis Respitory Rate 2019-01-27 20:42:00 Memori al Page Temperature Oral (F) 2019-01-27 20:42:00 98.5 F [facility] Page Systolic (mm Hg) 2019-01-27 17:00:00 Estrada rial Page Diastolic (mm Hg) 2019-01-27 17:00:00 Mem orial Yonis Temperature Oral (F) 2019-01-27 17:00:00 98.5 F [facility] Page Heart Rate 2019-01-27 17:00:00 [facility] Respitory Rate 2019-01-27 17:00:00 Wicho Gale Height 2019-01-22 14:35:00 157.48 cm Jeanne Somers BMI Calculated 2019-01-22 14:35:00 Wicho Gale Weight 2019-01-22 14:35:00 Jeanne Somers Weight 2019-01-22 04:34:00 [facility] Yonis Procedures This patient has no known procedures. Encounters Start End Encounter Admission Attending Care Care Encounter Source Date/Time Date/Time Type Type Clinicians Facility Department ID 2019-01-22 Inpatient E [facility] [id number] 04:39:00 2019-01-21 2019-01-27 Outpatient Dav [facility] [id number] 23:33:00 23:40:00 Ed 00 2018-02-21 2018-02-20 Inpatient E [facility] [id number] 14:48:00 13:18:00 [facility] Results Test Description Test Time Test [...] = Expiration Dt) 10-24-2020 N Thyroid Stimulating Iyeaysc1655-32-89 08:35:16 Test Item Value Reference Range Interpretation Comments TSH (test code = TSH) 1.170 mIU/mL 0.270-4.200 Lipid Jnwek6659-46-53 08:21:19 Test Item Value Reference Range Interpretation Comments Cholesterol Total 254 mg/dL 0-200 H RISK OF HE ART (test code = DISEASEPublishe d by Cholesterol Total) [employer] [employer] Cathie lyte Optimal Borderl ine [...] calculation is LDL/HDL Ratio=L DL Calc/HDL Chol CBSLTYTTQGTD1680-01-51 08:24:008.6[facility] AwhggboLQUMYLGEKHXQ7697-46-80 08:24:65632Dksyotbm KssasldDTIRYPQNYKOZ2133-83-55 08:24:0027[facility] Page NHPKUYYBVIHD1767-31-58 08:24:38201Pzirmurn QhdodfhNRDKHOUOTAGH5274-12-83 08:24:003.6[facility] VlyhazhGRNXLBMCHQVH9218-62-65 08:24:000.70[facility] Yonis IOONZULENRHM5442-74-91 08:24:008.4[facility] MsegjgeTDEHSMHKAZDG4929-54-54 08:24:00672Qtrvstrp QsnnewwUCQTBPMIGRLR0155-14-45 08:24:0086[facility] Page FYYLVWMTAFJF3880-11-52 08:24:006[facility] HrhblocTNZRGDAOQX5788-72-74 08:24:00 11.6[facility] WwvgeqaMFZAJBHUDO1841-20-18 08:24:003.78[facility]annHEMATOLOGY 2019-01-26 08:24:0013.3[facility] PvpqmekVZEQBKTNSX8547-97-50 08:24:0034.0[facility] DdvjvykFXSEREEHVB9423-40-16 08:24:006.3[facility] LtlpracJDPGFPLUFG2349-04-70 08:24:00 Test Item Value Reference Range Interpretation Comments MCH (test code = MCH) 30.7 pg 27.0-31.0 [facility] FxesopqVOMHXGIRVC3147-89-31 08:24:0090.3[facility] HermannHEMATOLOGY 2019-01-26 08:24:0034.2[facility] SmctxcrOAJMTWLQGP7594-83-92 08:24:35723Dyfcltlb ErlnfklAWRLYTHEDJ1752-66-90 08:24:007.5[facility] HermannCHEM DOZXD7972-25-75 09:14:30615Oegdmggi HermannCHEM UPOBA7079-16-09 09:14:008.5[facility] HermannCHEM CSPDN6588-06-85 09:14:0013.3[facility] HermannCHEM RMBUF7534-35-34 09:14:0024 [facility]annCHEM NLUIV9685-28-09 09:14:37314Dyzfvflt HermannCHEM PANEL 2019-01-25 09:14:0081[facility] HermannCHEM HUBHT6575-45-07 09:14:002[facility]annCHEM YAGGN8505-66-19 09:14:003.3[facility]annCHEM VJKMT4777-99-14 09:14:000.60[facility]annCHEM BBAEU4853-88-13 09:14:78616Bjgfalby Page MOLECULAR HYEXYXWZCR2832-10-11 16:22:00Negative (01/23/19 11:22 AM)[facility]annCHEM AJEXY4421-39-81 15:42:002.76[facility] HermannCHEM ONREQ0424-56-94 12:32:000.9[facility]annCHEM UVPAL8766-73-62 10:50:002.0[facility]annCHEM XGKFL8768-38-56 10:50:19635Byorfxaf HermannCHEM LMJIU0546-65-33 10:50:0023 [facility]annCHEM UJSJM5725-65-64 10:50:01284Tdsujkjn HermannCHEM PANEL 2019-01-23 10:50:003.1[facility] HermannCHEM ZPMYG2086-27-09 10:50:92841Ioxrlyoi HermannCHEM SBWQX6122-82-05 10:50:005[facility] HermannCHEM YAFIR4226-09-45 10:50:000.50[facility]annCHEM PVQCA6945-24-17 10:50:007.8[facility]annCHEM YKLSL5358-36-04 10:50:0083[facility] HermannCHEM CKUVK9887-31-38 10:50:0010.1 [facility] YctplcbKHTNRPXDUE3044-58-96 10:50:000.2[facility] HermannHEMATOLOGY 2019-01-23 10:50:000.8[facility] VkjkqgmCEFHHNZMHV6981-76-14 10:50:005.5[facility] XiozmbcKOYZTPFJZD4873-95-58 10:50:002.2[facility] KwzqbxsHVOLDBDDMV8976-71-70 10:50:000.1[facility] BefhmqyGUGOFFSRQX3582-17-70 10:50:0063.6[facility] Yonis LXMKIVZMHO2505-43-25 10:50:008.9[facility] FxjqktrLQDODWRTLU5035-97-97 10:50:002.3 [facility] KneoganOZPGWQDIBY7232-42-71 10:50:00Normal (01/23/19 5:50 AM)[facility] EwnviyeONQVJFHHNG0350-68-21 10:50:00Normal (01/23/19 5:50 AM)[facility] Page DQDMCEBWMA7395-14-18 10:50:0025.1[facility] LdfmdvjGYUSCLVBCI4228-26-06 10:50:00 13.1[facility] EzsxqegUBRETCXQKC6742-56-81 10:50:87989Holejsis HermannHEMATOLOGY 2019-01-23 10:50:007.7[facility] TjqqpyuKJULXGMAUF4056-91-54 10:50:008.6[facility] WunlgvsHGFIKSPKLV6792-23-72 10:50:0010.0[facility] PjbhumuRDGHNKSLEC4493-80-44 10:50:0034.6[facility] FosclbbCCJVRZGSES7708-47-67 10:50:0028.7[facility] Page CUFLSGPFDX0490-81-37 10:50:0087.8[facility] UpllbvsPUHLYACVGP7750-94-11 10:50:00 Test Item Value Reference Range Interpretation Comments MCH (test code = MCH) 30.4 pg 27.0-31.0 [facility] OdvuxtuJNZXPZJIHR3458-98-07 10:50:003.27[facility] HermannCHEM PANEL 2019-01-22 11:32:002.4[facility] HermannCHEM LDLIX6313-62-93 09:04:003.0[facility]annURINE AND LGAHT0362-73-95 07:14:00 Test Item Value Reference Range Interpretation Comments UA Spec Grav (test code = UA Spec 1.014 1 Grav) [facility] AND PUGXD1800-17-25 07:14:00 Test Item Value Reference Range Interpretation Comments UA pH (test code = UA pH) 6.0 1 5.0-8.0 [facility] NGHFQ8203-99-13 07:14:00Negative (01/22/19 2:14 AM) [facility] ZSMPY3187-92-87 07:14:00Negative *NA*(01/22/19 2:14 AM) [facility] PSPBF6470-10-91 07:14:00Negative *NA*(01/22/19 2:14 AM) [facility] INPPQ2221-08-96 07:14:00Negative *NA*(01/22/19 2:14 AM) [facility] DWGZN0623-64-50 07:14:00Negative (01/22/19 2:14 AM) [facility] MQTTD2645-57-77 07:14:00Negative (01/22/19 2:14 AM) [facility] XRUDM7092-50-77 07:14:00Negative (01/22/19 2:14 AM) [facility] PCAEV6044-21-19 07:14:00<1[facility] ILWZI7161-44-52 07:14:0025[facility] AND DMFTN7630-62-85 07:14:002 [facility] GMEKF5202-56-26 07:14:00Light Yellow *NA*(01/22/19 2:14 AM)[facility] DLBCF9387-59-44 07:14:00Clear (01/22/19 2:14 AM) [facility] TqwwfpyZEJYB8747-74-90 05:16:000.90[facility] HermannBLOOD BANK RESULTS 2019-01-22 05:01:00Negative (01/22/19 12:01 AM)[facility] HermannCARDIAC ENZYMES 2019-01-22 05:01:00<0.02[facility] HermannCARDIAC KCITJYR3610-70-58 05:01:0049 [facility]annCHEM KJOCV3471-45-71 05:01:000.6[facility] HermannCHEM PANEL 2019-01-22 05:01:06928Kznqbbyc HermannCHEM VOTSY1551-26-32 05:01:004.0[facility] HermannCHEM GELAR9980-23-25 05:01:0017[facility] HermannCHEM FJAJA2849-69-01 05:01:0025[facility] HermannCHEM QKVNO8402-69-04 05:01:008.1[facility] HermannCHEM DIEGW0525-22-67 05:01:00 Test Item Value Reference Range Interpretation Comments B/C Ratio (test code = B/C Ratio) 20 1 6-25 [facility]annCHEM NXZDF8154-88-55 05:01:00 Test Item Value Reference Range Interpretation Comments A/G Ratio (test code = A/G Ratio) 1.0 1 0.7-1.6 [facility]annCHEM FAENF3163-56-42 05:01:004.1[facility] HermannCHEM PANEL 2019-01-22 05:01:006.90[facility] TxdoahkWUOWGYSETNANB7630-44-33 05:01:00Negative *NA*(01/22/19 12:01 AM)[facility] VpulttbOWTEKVPVHX6317-14-21 05:01:000.1[facility] GazeczlNJSUOQROSW6769-57-12 05:01:000.7[facility] GbejsfjSIRXBWOEEE3618-30-62 05:01:000.0[facility] VfflevlTQYMUPBWCE8941-28-07 05:01:000.0[facility] Yonis PXIZWIHNHE9199-79-04 05:01:000.9[facility] PcnxcogHILXEPIOOV6784-47-62 05:01:008.6 [facility] VnxqirjHMHZHBKZYN1893-71-91 05:01:000.6[facility] HermannHEMATOLOGY 2019-01-22 05:01:0086.5[facility] CvqbwluDXJEKWKRBM7439-42-67 05:01:005.7[facility] CqniqobRRTSSQVSGR7651-50-96 05:01:006.9[facility] DblrcfkIGXOIATHZT7051-11-53 05:01:009.9[facility] MyqlvuzIFPRLPRYQL5377-55-21 05:01:0032.8[facility] Page ARWPDTIKUS8478-29-81 05:01:0013.6[facility] BbtstqeBDIEKTGUDA5626-76-21 05:01:00 443[facility] LlehxvxPKVPBWRKPD4345-21-64 05:01:007.3[facility] HermannHEMATOLOGY 2019-01-22 05:01:0014.0[facility] RxreuvjWZSQLDQGPR4901-87-05 05:01:004.85[facility] IoymukjSDFVKNSHNQ3557-25-93 05:01:0042.7[facility] AswrdpqXAWKBEOKIA7005-94-34 05:01:00 Test Item Value Reference Range Interpretation Comments MCH (test code = MCH) 29.0 pg 27.0-31.0 [facility]EtxgrhgOMHWOOBDVO0242-11-27 05:01:0088.2[facility] HermannHEMATOLOGY 2019-01-22 05:01:00 Test Item Value Reference Range Interpretation Comments INR (test code = INR) 0.96 1 0.85-1.17 [facility] DistrictFpdggynTQWODSIEDI2699-53-13 05:01:00 Test Item Value Reference Range Interpretation Comments PT (test code = PT) 12.6 s 12.0-14.7 [facility] DistrictBuftncmHYXRKYPMVF0821-28-33 05:01:00 Test Item Value Reference Range Interpretation Comments PTT (test code = PTT) 25.9 s 22.9-35.8 [facility] DistrictGqbvymqNMX0O4517-71-09 14:36:00 Test Item Value Reference Range Interpretation [...] 0.00-0.01 N code = ETOHU) Comprehensive Metabolic Vflui1122-92-63 14:36:00 Test Item Value Reference Range Interpretation [...] the National Kid[employer] Foundation,http ://nkd ep.nih.gov Urinalysis Zfuypkiu9018-47-48 14:32:00 Test Item Value Reference Range Interpretation Comments Color (test code = COLOR) Yellow Yellow,Straw,Pl N yellow Clarity (test code = Clear Clear N CLAR) Specific [place] (test 1.024 1.001-1.035 N code = SPGR) [...] code = Few /HPF BACT) CBC with Ftmjvjkrivpn2542-14-93 14:21:00 Test Item Value Reference Range Interpretation [...] code = ALYMPH) 3.0 K/cumm 0.5-4.6 N [place] Abs (test code = AMONO) 0.5 K/cumm 0.0-1.2 N Eos Abs (test code = AEOS) 0.19 K/cumm 0.00-0.74 N Baso Abs (test code = ABASO) 0.1 K/cumm 0.00-0.21 N
== END 2020-04-01 12:00 | disposition home or self-care (01) ==
LOC: ER 10:20
DX: F41.9 Anxiety disorder, unspecified (principal); F31.9 Bipolar disorder, unspecified; Z88.6 Allergy status to analgesic agent; Z88.5 Allergy status to narcotic agent; Z98.82 Breast implant status
CPT/HCPCS: 99284; Q0169

== ENCOUNTER 2020-04-06 08:07 | Emergency (ER) | payer OTHER ==
--- OUTSIDE RECORDS SUMMARY | 2020-04-06 08:11 | XMS REPORT | Continuity of Care Document ---
:1970 Author Organization [employer] Care Team Providers Name Role Phone [employer] Unavailable Un available Problems Problem Status Onset [...] Active hydrochloride PO, Q6H, PRN 2018 [facility] 50 MG Oral Pain Score Tablet 1-3, X 5 day, # 20 tab, 0 Refill(s) Metronidazole 500 mg = 1 Active 500 MG Oral tab, PO, 2019 [facility] Tablet [id number], X 4 day, # 12 tab, 0 Refill(s) ciprofloxacin 500 mg = 1 Active 500 mg oral tab, PO, 2019 [facility] tablet [id number], X 4 day, # 8 tab, 0 Refill(s) Potassium Notes: (Same Inactive Chloride as: K-Dur 20) 2018 [facility] "Do Not Crush" Give with food and full glass of water For patients unable to swallow tablet, dissolve in one half glass of water. Allow about 2 minutes for the tablets to disintegrate. Stir before giving to prepare slurry and administer. Please exclude Patient’ s with feeding tube less than 14 Guyanese (Dobhoff, J-tube etc) and pediatric and patients. Strattera 0.5 mg/kg, No Longer Route: PO, Active 2018 [facility] QAM, Dosing Weight 75, kg, Start date: 01/24/19 9:00:00 CDT, Duration: 30 day, Stop date: 02/22/19 9:00:00 CDT lithium Notes: Do not No Longer crush or chew. Active 2018 [facility] (Same as: Eskalith-CR) Risperdal Notes: (Same No Longer as: Risperdal) Active 2018 [facility] Strattera 1 mg, Route: No Longer PO, QPM, Active 2018 [facility] Dosing Weight 75, kg, Start date: 01/23/19 17:00:00 CDT, Duration: 30 day, Stop date: 02/21/19 17:00:00 CDT normal saline 1,000 mL, No Longer 0.9% IV 1,000 Rate: 100 [facility], Infuse over: 10 hr, Route: IV, Dosing Weight 75 kg, Total Volume: 1,000, Start date: 01/23/19 14:18:00 CDT, Duration: 30 day, Stop date: 02/22/19 14:17:00 CDT, 1.84, m2 Clonazepam Notes: (Same No Longer As: KlonoPIN) Active 2018 [facility] Flagyl Notes: (Same No Longer as: Flagyl) Active 2018 [facility] Take with food/ avoid alcohol Cipro Notes: May No Longer interfere Active 2018 [facility] w/enteral feedings - Take 1 hr before or 2 hrs after antacids, dairy pdt & minerals. On empty stomach. tramadol 50 mg = 1 tab, No Longer hydrochloride PO, Q6H, PRN Active 2018 [facility] 50 MG Oral Pain Score Tablet 1-3, 0 Refill(s) potassium 40 mEq, PO, Active chloride 20 mEq ONCE, 0 2018 [facility] oral tablet, Refill(s) extended release Metronidazole 500 mg, PO, No Longer 500 MG Oral [id number], 0 Active 2018 [facility] Tablet [Flagyl] Refill(s) Ciprofloxacin 500 mg, PO, No Longer 500 MG Oral [id number], 0 Active 2018 [facility] Tablet [Cipro] Refill(s) Potassium Notes: (Same Inactive Chloride as: K-Dur 20) 2019 [facility] "Do Not Crush" Give with food and full glass of water For patients unable to swallow tablet, dissolve in one half glass of water. Allow about 2 minutes for the tablets to disintegrate. Stir before giving to prepare slurry and administer. Please exclude Patient’ s with feeding tube less than 14 Gu[place]ese (Dobhoff, J-tube etc) and pediatric and patients. Pepcid Notes: (Same No Longer as: Pepcid) Active 2018 [facility] Strattera 0.5 mg/kg, PO, Active QAM, 0 2018 [facility] Refill(s) lithium 450 mg 450 mg = 1 Active oral tablet, tab, PO, 2018 [facility] extended Bedtime, # 60 release tab, 0 Refill(s) clonazePAM 0.5 0.5 mg = 1 Active mg oral tablet tab, PO, TID, 2018 [facility] # 90 tab, 0 Refill(s) Risperidone 0.5 0.5 mg = 1 Active MG Oral Tablet tab, PO, BID, 2018 [facility] [Risperdal] 0 Refill(s) Zosyn Notes: (Same No Longer as: Zosyn) Active 2018 [facility] Dosing based on Piperacillin component MEDICATION WASTE Product Size: 3375 mg Product Wasted: ___ mg Tramadol Notes: Not to No Longer exceed Active 2018 [facility] 400mg/day. (Same As: Ultram) normal saline 1,000 mL, No Longer 0.9% IV 1,000 Rate: 150 Active 2018 [facility] t mL ml/hr, Infuse over: 6.7 hr, Route: IV, Dosing Weight 75.994 kg, Total Volume: 1,000, Start date: 01/22/19 4:48:00 CDT, Duration: 30 day, Stop date: 02/21/19 4:47:00 CDT Ondansetron Notes: (Same No Longer as: Zofran) Active 2018 [facility] MEDICATION WASTE Product Size: 4 mg Product Wasted: ___ mg Glucagon 1 mg, Route: No Longer IM, Drug form: Active 2018 [facility] PDR/INJ, PRN, Dosing Weight 75.994, kg, PRN Blood Glucose Results, Start date: 01/22/19 4:47:00 CDT, Duration: 30 day, Stop date: 02/21/19 4:46:00 CDT Dextrose 50% 12.5 gm, 25 No Longer Syringe mL, Route: Active 2018 [facility] IVP, Drug Form: INJ, Dosing Weight 75.994, kg, PRN, PRN Blood Glucose Results, Start date: 01/22/19 4:47:00 CDT, Duration: 30 day, Stop date: 02/21/19 4:46:00 CDT Zofran Notes: (Same Inactive as: Zofran) 2018 [facility] MEDICATION WASTE Product Size: 4 mg Product Wasted: ___ mg NS (Bolus) IV 1,000 mL, Inactive 1,000 ml/hr, 2018 [facility] Infuse Over: 1 hr, Route: IV, 1,000, Drug form: INJ, ONCE, Priority: STAT, Dosing Weight 75.994 kg, Start date: 01/22/19 3:52:00 CDT, Stop date: 01/22/19 3:52:00 CDT Visipaque 320 Notes: (Same Inactive mg/mL as: 2019 [facility] injectable Visipaque). solution WASTE: F/P - Black; E - [employer] Zosyn Notes: (Same Inactive as: Zosyn) 2018 [facility] Dosing based on Piperacillin component MEDICATION WASTE Product Size: 3375 mg Product Wasted: ___ mg NS (Bolus) IV 1,000 mL, Inactive 1,000 ml/hr, 2018 [facility] Infuse Over: 1 hr, Route: IV, 1,000, Drug form: INJ, ONCE, Priority: STAT, Dosing Weight 75.994 kg, Start date: 01/22/19 0:44:00 CDT, Stop date: 01/22/19 0:44:00 CDT Zofran Notes: (Same No Longer as: Zofran) Active 2018 [facility] MEDICATION WASTE Product Size: 4 mg Product Wasted: ___ mg Saline Flush Notes: Same No Longer 0.9% as: BD Active 2018 [facility] Posiflush Sterile NS (Bolus) IV 1,000 mL, No Longer 1,000 ml/hr, Active 2018 [facility] Infuse Over: 1 hr, Route: [...] AGAP 8.6 10.0 - 01/26 ES 20.0 [facility] ELECTROLYT Chloride Lvl 107 95 - 109 01/26 [facility] ELECTROLYT CO2 27 24 - 32 01/26 [facility] ELECTROLYT Sodium Lvl 139 135 - 145 01/26 [facility] ELECTROLYT Potassium 3.6 3.5 - 5.1 01/26 [facility] Lv [facility] ELECTROLYT Creatinine 0.70 0.50 - 01/26 ES Lvl 1.40 [facility] ELECTROLYT Calcium Lvl 8.4 8.5 - 10.5 01/26 [facility] ELECTROLYT eGFR 103 01/26 Result Comment: The [facility] eGFR is calculated using the [...] Glucose Lvl 86 70 - 99 01/26 [facility] ELECTROLYT BUN 6 7 - 22 01/26 [facility] HEMATOLOGY Hgb 11.6 12.0 - 01/26 MH 16.0 [facility] HEMATOLOGY RBC 3.78 4.20 - 01/26 MH 5.40 /2018 [facility] HEMATOLOGY RDW 13.3 11.5 - 01/26 MH 14.5 [facility] HEMATOLOGY MCHC 34.0 32.0 - 01/26 MH 36.0 [facility] HEMATOLOGY WBC 6.3 3.7 - 10.4 01/26 [facility] HEMATOLOGY MCH 30.7 27.0 - 01/26 MH 31.0 [facility] HEMATOLOGY MCV 90.3 80.0 - 01/26 98.0 [facility] HEMATOLOGY Hct 34.2 36.0 - 01/26 MH 48.0 [facility] HEMATOLOGY Platelet 412 133 - 450 01/26 [facility] HEMATOLOGY MPV 7.5 7.4 - 10.4 01/26 [facility] CHEM PANEL eGFR 108 01/25 [facility] Comment: The [facility] eGFR is calculated using the [...] Calcium Lvl 8.5 8.5 - 10.5 01/25 [facility] CHEM PANEL AGAP 13.3 10.0 - 01/25 MH 20.0 [facility] CHEM PANEL CO2 24 24 - 32 01/25 [facility] CHEM PANEL Chloride Lvl 109 95 - 109 01/25 [facility] CHEM PANEL Glucose Lvl 81 70 - 99 01/25 [facility] CHEM PANEL BUN 2 7 - 22 01/25 [facility] CHEM PANEL Potassium 3.3 3.5 - 5.1 01/25 [facility] CHEM PANEL Creatinine 0.60 0.50 - 01/25 MH Lvl 1.40 [facility] CHEM PANEL Sodium Lvl 143 135 - 145 01/25 [facility] MOLECULAR C difficile Negative Negative 01/23 DIAGNOSTIC DNA (01/23/19 11:22 AM) [facility] CHEM PANEL Procalcitoni 2.76 0.00 - 01/23 Result n Lvl 0.10 Comment: [facility] Critical Result(s) called to A Levin at 01/23/2019 12:56 by cz. Read back OK. CHEM PANEL Lactic Acid 0.9 0.5 - 2.2 01/23 [facility] CHEM PANEL Magnesium 2.0 1.8 - 2.4 01/23 [facility] CHEM PANEL eGFR 115 01/23 Result Comment: The [facility] eGFR is calculated using the [...] PANEL CO2 23 24 - 32 01/23 [facility] CHEM PANEL Chloride Lvl 113 95 - 109 01/23 [facility] CHEM PANEL Potassium 3.1 3.5 - 5.1 01/23 [facility] CHEM PANEL Sodium Lvl 143 135 - 145 01/23 [facility] CHEM PANEL BUN 5 7 - 22 01/23 [facility] CHEM PANEL Creatinine 0.50 0.50 - 04 MH Lvl 1.40 /2018 [facility] CHEM PANEL Calcium Lvl 7.8 8.5 - 10.5 01/23 [facility] CHEM PANEL Glucose Lvl 83 70 - 99 01/23 [facility] CHEM PANEL AGAP 10.1 10.0 - 01/23 20.0 /2018 [facility] HEMATOLOGY Eosinophils 0.2 0.0 - 0.5 01/23 # [facility] HEMATOLOGY Monocytes # 0.8 0.0 - 0.8 01/23 [facility] HEMATOLOGY Neutrophils 5.5 1.5 - 8.1 01/23 [facility] HEMATOLOGY Lymphocytes 2.2 1.0 - 5.5 01/23 [facility] HEMATOLOGY Basophils 0.1 0.0 - 1.0 01/23 [facility] HEMATOLOGY Segs 63.6 45.0 - 01/23 75.0 /2018 [facility] HEMATOLOGY Monocytes 8.9 2.0 - 12.0 01/23 [facility] HEMATOLOGY Eosinophils 2.3 0.0 - 4.0 01/23 [facility] HEMATOLOGY RBC Morph Normal 01/23 (01/23/19 5:50 AM) [facility] HEMATOLOGY Plt Morph Normal 01/23 (01/23/19 5:50 AM) [facility] HEMATOLOGY Lymphocytes 25.1 20.0 - 01/23 40.0 [facility] HEMATOLOGY RDW 13.1 11.5 - 01/23 14.5 /2018 [facility] HEMATOLOGY Platelet 327 133 - 450 01/23 [facility] HEMATOLOGY MPV 7.7 7.4 - 10.4 01/23 [facility] HEMATOLOGY WBC 8.6 3.7 - 10.4 01/23 [facility] HEMATOLOGY Hgb 10.0 12.0 - 01/23 Result MH 16.0 Comment: [facility] Notified Raghavendra 01/23/2019 07:32 by smt. HEMATOLOGY MCHC 34.6 32.0 - 04 36.0 /2018 [facility] HEMATOLOGY Hct 28.7 36.0 - 01/23 48.0 /2018 [facility] HEMATOLOGY MCV 87.8 80.0 - 01/23 98.0 /2018 [facility] HEMATOLOGY MCH 30.4 27.0 - 04 31.0 [facility] HEMATOLOGY RBC 3.27 4.20 - 04 5.40 /2019 [facility] Culture: Normal Enteric Pam Isolated 01/22 Stool No Salmonella Or Shigella Isolated [facility] No Campylobacter Isolated CHEM PANEL Lactic Acid 2.4 0.5 - 2.2 01/22 Lvl [facility] CHEM PANEL Lactic Acid 3.0 0.5 - 2.2 01/22 Lvl [facility] URINE AND UA Spec Grav 1.014 <=1.030 01/22 STOOL [facility] URINE AND UA pH 6.0 5.0 - 8.0 01/22 STOOL [facility] URINE AND UA Protein Negative Negative 01/22 STOOL (01/22/19 2:14 AM) /[facility] Glucose Negative Negative 01/22 STOOL *NA* /2018 [facility] (01/22/19 2:14 AM) URINE AND UA Ketones Negative Negative 01/22 STOOL *NA* /2018 [facility] (01/22/19 2:14 AM) URINE AND UA Bili Negative Negative 01/22 STOOL *NA* [facility] (01/22/19 2:14 AM) URINE AND UA Nitrite Negative Negative 01/22 STOOL (01/22/19 2:14 AM) /2018 [facility] URINE AND UA <=1.0 0.1 - 1.0 01/22 STOOL Urobilinogen mg/dL [facility] URINE AND UA Sq Epi Occasional Few /LPF 01/22 STOOL /LPF /2018 [facility] URINE AND UA Leuk Est Negative Negative 01/22 STOOL (01/22/19 2:14 AM) /[facility] Blood Negative Negative 01/22 STOOL (01/22/19 2:14 AM) /2018 [facility] URINE AND UA Mucus Few /LPF None Seen 01/22 STOOL /LPF [facility] URINE AND UA RBC <1 0 - 2 01/22 STOOL [facility] URINE AND UA Hyal Cast 25 0 - 2 01/22 STOOL [facility] URINE AND UA WBC 2 0 - 5 01/22 STOOL [facility] URINE AND UA Color Light Yellow Yellow 01/22 STOOL *NA* [facility] (01/22/19 2:14 AM) URINE AND UA Turbidity Clear Clear 01/22 STOOL (01/22/19 2:14 AM) /2018 [facility] est METAL [place] Lvl 0.90 0.50 - 01/22 1.50 /2018 [facility] BLOOD BANK ABO/Rh A POS 01/22 RESULTS /2018 [facility] BLOOD BANK Antibody Negative 01/22 RESULTS Scrn (01/22/19 12:01 AM) /2018 [facility] CARDIAC Troponin-I <0.02 0.00 - 01/22 ENZYMES 0.40 [facility] CARDIAC Total CK 49 12 - 191 01/22 ENZYMES /2018 [facility] CHEM PANEL Bili Total 0.6 0.2 - 1.3 01/22 /2018 [facility] CHEM PANEL Alk Phos 100 39 - 136 01/22 /2018 [facility] CHEM PANEL Albumin Lvl 4.0 3.5 - 5.0 01/22 [facility] CHEM PANEL AST 17 0 - 37 01/22 /2018 [facility] CHEM PANEL ALT 25 0 - 65 01/22 [facility] CHEM PANEL Total 8.1 6.4 - 8.4 01/22 Protein /2018 [facility] CHEM PANEL B/C Ratio 20 6 - 25 01/22 /2018 [facility] CHEM PANEL A/G Ratio 1.0 0.7 - 1.6 01/22 /2018 [facility] CHEM PANEL Globulin 4.1 2.7 - 4.2 01/22 /2018 [facility] CHEM PANEL Procalcitoni 6.90 0.00 - 01/22 Result n Lvl 0.10 Comment: [facility] Critical Result(s) called to Eliana Vega at 01/22/2019 00:50 by VV. Read back OK. ENDOCRINOL S Preg Negative Negative 01/22 OGY *NA* /2018 [facility] (01/22/19 12:01 AM) HEMATOLOGY Eosinophils 0.1 0.0 - 0.5 01/22 MH # /2019 [facility] HEMATOLOGY Monocytes # 0.7 0.0 - 0.8 01/22 /2018 [facility] HEMATOLOGY Basophils # 0.0 0.0 - 0.2 01/22 /2018 [facility] HEMATOLOGY Basophils 0.0 0.0 - 1.0 01/22 /2018 [facility] HEMATOLOGY Eosinophils 0.9 0.0 - 4.0 01/22 /2018 [facility] HEMATOLOGY Neutrophils 8.6 1.5 - 8.1 01/22 # /2019 [facility] HEMATOLOGY Lymphocytes 0.6 1.0 - 5.5 01/22 MH # /2019 [facility] Segs 86.5 45.0 - 01/22 MH 75.0 /2019 [facility] Lymphocytes 5.7 20.0 - 01/22 MH 40.0 /2018 [facility] Monocytes 6.9 2.0 - 12.0 01/22 /2018 [facility] WBC 9.9 3.7 - 10.4 01/22 /2018 [facility] MCHC 32.8 32.0 - 01/22 MH 36.0 /2018 [facility] RDW 13.6 11.5 - 01/22 14.5 /2018 [facility] Platelet 443 133 - 450 01/22 [facility] MPV 7.3 7.4 - 10.4 01/22 [facility] Hgb 14.0 12.0 - 01/22 16.0 /2018 [facility] RBC 4.85 4.20 - 01/22 5.40 /2018 [facility] Hct 42.7 36.0 - 01/22 MH 48.0 /2018 [facility] MCH 29.0 27.0 - 01/22 31.0 /2018 [facility] MCV 88.2 80.0 - 01/22 98.0 /2018 [facility] INR 0.96 0.85 - 01/22 MH 1.17 /2018 [facility] PT 12.6 12.0 - 01/22 14.7 /2018 [facility] PTT 25.9 22.9 - 01/22 35.8 /2018 [facility] Pathology Reports No Data Provided [...] dislocation of the left ankl e. SL: [id number] ED Abdomen/Pelvis IV Clinical Indication: Diarrhe a low blood pressure, abdominal pain. 01/22/2019 [facility] contrast only CT Comparison: None TECHNIQUE: [...] Mild sigmoid diverticulosis without diverticu litis. SL: [id number] Chest 1view DX Clinical Indication: Undifferentiated sepsis. [facility] Comparison: None FINDINGS: AP view of the chest submitted for interpretatio n. Lungs are clear. Heart size is normal. Central pulmonary vasculat ure appears normal. No effusion. No pneumothorax. No radiographically apparent acute osseous abnor mality. IMPRESSION: 1. No radiographically apparent acute cardiopulm onary process. SL: [id number] Consultation Notes No Data Provided for This Section Discharge Summaries No Data Provided for This Section History and Physicals No Data Provided for This Section Vital Signs Vital Sign Value Date Comments Source Temperature Oral (F) 98.6 F 01/28/[place] [facility] Systolic (mm Hg) 137 01/28/2019 [facility] t Diastolic (mm Hg) 84 01/28/[address] [facility] st Heart Rate 82 01/28/2019 [facility] Respitory Rate 18 01/28/2019 [facility] Systolic (mm Hg) 113 01/27/2019 [facility] t Diastolic (mm Hg) 72 01/27/[address] [facility] [address] Heart Rate 77 01/27/2019 [facility] Respitory Rate 18 01/27/2019 [facility] Temperature Oral (F) 98.5 F 01/27/2019 [facility] Systolic (mm Hg) 108 01/27/2019 [facility] t Diastolic (mm Hg) 71 01/27/[address] [facility] [address] Temperature Oral (F) 98.5 F 01/27/2019 [facility] Heart Rate 86 01/27/2019 [facility] Respitory Rate 18 01/27/2019 [facility] Height 157.48 cm 01/22/2019 [facility] BMI Calculated 30.24 01/22/2019 [facility] Weight 75 01/22/2019 [facility] Weight 75.994 01/22/2019 [facility] Encounters Location Location Encounter Encounter Reason Attending ADM [place] Source Details Type Number For Provider Date Date [facility] [id number] Ed 01/22 01/28 Yonis Sandovalni /2018 [facility] Procedures No Data Provided for This Section Assessment and Plan Assessment and Plan Date Source Extracted from:Title: Discharge Summary 01/28/2019 [facility] Author: Axel Arriaga MD Date: 01/26/19 [...] abdominal pain, presented to the ER from [facility] for evaluation of hypotension. She complains of [...] and recommended to be transferred back to [facility]. Physical Exam: Vitals Tmp(F) Pulse BP RR [...] Time spent at Discharge:45 min Addendum by Axle Arriaga MD on 01/27/2019 15:26 Patient was to [facility] [place] [place] denied her. I spoke to physician at [facility] who has accepted patient. Extracted from:Title: Progress Note Author: Axel Arriaga MD Date: 01/25/19 48 year old female Admitted with hypotension, abdominal pain and sepsis. Was at [facility] for exacerbation of depression/bipolar disorder. Ct abd/pelvis showed mild enterocolitis . CXR and UA are clear.No leucocytosis. But lactic acid and pro-calcitonin elevated and patient was significantly hypotensive on admission. Patient is currently on IV antibiotics and IV fluids. Colitis improving Hypotension secondary to colitis improved with IV fluids Depression and bipolar disorder with re cent admission at [facility] with concern for psychosis Hypokalemia secondary to diarrhea treated Anemia of chronic disease Plan: Will DC IV fluids, will advance diet to regular diet We will continue with Cipro and Flagyl We will replacepotassiump.o. Discussed with psych response team. The ymentioned that patient is having some delusions but otherwiseno suicidal homicidal ideations. They haveclearthe patient to go back to [facility] rehab once medica lly cleared. Exclusionary paperwork is i n the chart to be signed bythe physician once medically cleared. Discussed in MDR's: Likely dischargeto morrowif tolerating regular diet and labs arewnl Extracted from:Title: History and Physical Author: Ed Demarco DO Date: 01/22/19 48 y/o female with history of bipolar di sorder currently admitted at [facility], depression and abdominal hernia brought in via EMS from [facility] for evaluation of hypotension. 1.Severe sepsis(R65.20) Hypotensive [...] History Date Source Social History TypeResponse 01/22/2019 [facility] Smoking Status Light tobacco smoker; Exposure to Tobacc o Smoke None; Cigarette Smoking Last 365 Days No; Reg Smoking Cessation Counseling No entered on: 01/22/19 Family History No Data Provided for This Section Advance Directives No Data Provided for This Section Functional Status No Data Provided for This Section
--- OUTSIDE RECORDS SUMMARY | 2020-04-06 08:13 | XMS REPORT | Continuity of Care Document ---
:1970 Author Organization [facility] t Address [address] [place] [address] Care Team Providers Name Role Phone UNKNOWN Primary Care Physician Unavailable Dav Attending Clinician LOS Attending Clinician Unavailable Dav Admitting Clinician LOS Admitting Clinician Unavailable Problems Condition Condition Condition Status Onset Resolution Last Treating Co mments Source Name Details Category Date Date Treatment Clinician Date LOW PB Diagnosis Active 2019-01-22 Mem oria 3 01:52:00 l LOW PB 00:00: Yonis 00 Active 01/21/2019 [facility] INFECTIOUS Diagnosis Active 2019-02-06 Memoria GASTROENTE 3 08:58:00 l RITIS AND 00:00: Yonis COLITIS INFECTIOUS 00 GASTROENTE RITIS AND COLITIS Active 01/21/2019 [facility] INFECTIOUS Diagnosis Active 2019-02-06 Memoria GASTROENTE 08:58:00 l RITIS AND [place] COLITIS, INFECTIOUS GASTROENTE RITIS AND COLITIS, Active [facility] Allergies, Adverse Reactions, Alerts Allergy Allergy Status Severity Reaction(s) Onset Inactive Treating Comm ents Source Name Type Date Date Clinician Phenerga Phenerga Active Wicho Somers Social History Smoking Status Start Date Stop Date Source Social History 2019-01-22 05:00:12 [facility] Medications Ordered Filled Start Stop Current Ordering [...] 4-04 tab, PO, l oral tablet 17:35: [id number], X Yonis 00 4 day, # 8 [...] s with feeding tube less than 14 Citizen [place] (Dobhoff, J-tube etc) and pediatric and patients. [...] ia - (Same As: l 18:00: KlonoPIN) Yonis Flagyl No Notes: Memoria 01-23 (Same as: l 15:00: Flagyl) [place] 00 Take with food/ avoid alcohol Cipro No Notes: May Memori a 01-23 interfere l 15:00: w/enteral [place] 00 feedings - Take 1 hr before [...] PO, ONCE, l mEq oral 14:20: 0 [place] tablet, 00 Refill(s) extended release Metronidazo No 500 mg, Mem oria le 500 MG 4-01 PO, l Oral Tablet 14:20: [id number], 0 H ermann [Flagyl] 00 Refill(s) Ciprofloxac No 500 mg, Mem oria in 500 MG -01 PO, l Oral Tablet 14:20: [id number], 0 Yonis [Cipro] 00 Refill(s) Potassium No [...] s with feeding tube less than 14 Citizen [place] (Dobhoff, J-tube etc) and pediatric and patients. [...] tab, PO, l Tablet 21:08: BID, 0 [place] [Risperdal] 00 Refill(s) Zosyn No Notes: Memoria [...] Memoria 3-31 (Same as: l 08:56: Zofran) [place] MEDICATION WASTE Product Size: 4 mg Product Wasted: ___ mg NS (Bolus) No 1,000 mL, Me moria IV 3-31 1,000 l 08:52: ml/hr, [place] 00 Infuse Over: 1 hr, Route: IV, [...] moria IV 3-31 1,000 l 05:44: ml/hr, [place] 00 Infuse Over: 1 hr, Route: IV, 1,000, Drug form: INJ, ONCE, Priority: STAT, Dosing Weight 75.994 kg, Start date: 01/22/19 0:44:00 CDT, Stop date: 01/22/19 0:44:00 CDT Zofran No Notes: Memoria 01-22 (Same as: l 04:52: Zofran) [place] MEDICATION WASTE Product Size: 4 mg Product Wasted: ___ mg Saline No Notes: Memoria Flush 0.9% 01-22 Same as: l 04:52: BD [place] Posiflush Sterile NS (Bolus) No 1,000 mL, Me moria IV 01-22 1,000 l 04:51: ml/hr, [place] 00 Infuse Over: 1 hr, Route: IV, 1,000, Drug form: INJ, ONCE, Priority: STAT, Dosing Weight 75.994 kg, Start date: 01/21/19 23:51:00 CDT, Stop date: 01/21/19 23:51:00 CDT Vital Signs Vital Name Observation Time Observation Value Comments Source Temperature Oral (F) 2019-01-28 01:16:00 98.6 F [facility] [place] Systolic (mm Hg) 2019-01-28 01:16:00 Estrada rial [place] Diastolic (mm Hg) 2019-01-28 01:16:00 Mem orial Yonis Heart Rate 2019-01-28 01:16:00 [facility] [place] Respitory Rate 2019-01-28 01:16:00 Memori al Yonis Systolic (mm Hg) 2019-01-27 20:42:00 Estrada rial [place] Diastolic (mm Hg) 2019-01-27 20:42:00 Mem orial [place] Heart Rate 2019-01-27 20:42:00 [facility] [place] Respitory Rate 2019-01-27 20:42:00 Memori al Yonis Temperature Oral (F) 2019-01-27 20:42:00 98.5 F [facility] [place] Systolic (mm Hg) 2019-01-27 17:00:00 Estrada rial Yonis Diastolic (mm Hg) 2019-01-27 17:00:00 Mem orial Yonis Temperature Oral (F) 2019-01-27 17:00:00 98.5 F [facility] Yon[facility] Heart Rate 2019-01-27 17:00:00 [facility] Respitory Rate 2019-01-27 17:00:00 Memori al Yonis Height 2019-01-22 14:35:00 157.48 cm Jeanne Somers BMI Calculated 2019-01-22 14:35:00 Wicho Gale Weight 2019-01-22 14:35:00 Jeanne Somers Weight 2019-01-22 04:34:00 Jeanne Somers Procedures This patient has no known procedures. Encounters Start End Encounter Admission Attending Care Care Encounter Source Date/Time Date/Time Type Type Clinicians Facility Department ID 2019-01-22 Inpatient E [facility] [id number] 04:39:00 2019-01-21 2019-01-27 Outpatient Dav [facility] [id number] 23:33:00 23:40:00 Ed 00 2018-02-21 2018-02-20 Inpatient E [facility] [id number] [address] 14:48:00 13:18:00 [facility] Results Test Description Test Time Test [...] = Expiration Dt) 10-24-2020 N Thyroid Stimulating Bndoboc4933-46-06 08:35:16 Test Item Value Reference Range Interpretation Comments TSH (test code = TSH) 1.170 mIU/mL 0.270-4.200 Lipid Sjynz0031-54-61 08:21:19 Test Item Value Reference Range Interpretation Comments Cholesterol Total 254 mg/dL 0-200 H RISK OF HE ART (test code = DISEASEPublishe d by Cholesterol Total) [place] [employer] Cathie lyte Optimal Borderl ine [...] calculation is LDL/HDL Ratio=L DL Calc/HDL Chol YDHNTKNLHMEF5073-40-14 08:24:008.6[facility] TluixkbGMNULDHCMDBM0035-03-02 08:24:72190Afbfokwl CozwdutXCUIIGFJUWWQ3244-67-55 08:24:0027[facility] [place] FURGKLTUCWWZ6214-83-05 08:24:55731Hhcwcelm QpxnbxuXLINTHQROXRI1919-77-51 08:24:003.6[facility] KekhtdfIOOPUFPGOMUN8971-33-11 08:24:000.70[facility] Yonis RNESMWRNLHMB9472-29-13 08:24:008.4[facility] RfipyjmXALVBEUUJSCO7903-36-07 08:24:31903Pzyqkhkc MrovlazEHMZDMDEPXFN3613-66-82 08:24:0086[facility] [place] BRKPVOVNVPGL7684-12-36 08:24:006[facility] VgyqifrCBJRDDOGVK4265-62-91 08:24:00 11.6[facility] UmqqlduHSOPVWSGXE0018-94-73 08:24:003.78[facility]annHEMATOLOGY 2019-01-26 08:24:0013.3[facility] ActcaifPFTTDVVKLJ9222-29-25 08:24:0034.0[facility] KbrwzxcWYZLUUZSWM5398-50-68 08:24:006.3[facility] GlwifcpQSJUZATOGR7152-42-01 08:24:00 Test Item Value Reference Range Interpretation Comments MCH (test code = MCH) 30.7 pg 27.0-31.0 [facility] FzpwesqEOPSJPNEHM3138-35-73 08:24:0090.3[facility] HermannHEMATOLOGY 2019-01-26 08:24:0034.2[facility] QywzmxpRNUQCPAYRP6073-34-16 08:24:99374Usgxwxab DrmfpuwGGLEVNOCVH8386-76-62 08:24:007.5[facility] HermannCHEM YHXWC7335-09-25 09:14:64221Igcpyeyj HermannCHEM FXBTR1167-67-13 09:14:008.5[facility] HermannCHEM AQKPW4972-78-75 09:14:0013.3[facility] HermannCHEM AMPRC8965-53-19 09:14:0024 [facility]annCHEM XVNTX4255-57-02 09:14:66801Vmltbfei HermannCHEM PANEL 2019-01-25 09:14:0081[facility] HermannCHEM XQPDS1795-23-83 09:14:002[facility] HermannCHEM VQRDF2409-67-05 09:14:003.3[facility] HermannCHEM JVZIV3461-07-14 09:14:000.60[facility] HermannCHEM OLRYH3525-47-57 09:14:22201Esasssjh Yonis MOLECULAR TNQSEAPUNO4473-14-01 16:22:00Negative (01/23/19 11:22 AM)[facility] HermannCHEM JWMJR9044-83-83 15:42:002.76[facility] HermannCHEM CFBHC0493-87-59 12:32:000.9[facility]annCHEM YFHZX4614-98-65 10:50:002.0[facility]annCHEM YMNZR7981-81-30 10:50:99020Ecbyzfzq HermannCHEM EEBSH4361-80-21 10:50:0023 [facility]annCHEM DNONJ6888-34-16 10:50:73581Rgpgfhpx HermannCHEM PANEL 2019-01-23 10:50:003.1[facility] HermannCHEM RSWRB6379-75-14 10:50:08021Ezsrihuc HermannCHEM XRQJT0719-34-73 10:50:005[facility] HermannCHEM WUKCE1025-04-58 10:50:000.50[facility] HermannCHEM WAPPY4500-72-92 10:50:007.8[facility]annCHEM BHVTC2691-31-35 10:50:0083[facility]annCHEM FIOHO9746-00-99 10:50:0010.1 [facility] DaylyhkXLBINIIOAM7471-68-63 10:50:000.2[facility] HermannHEMATOLOGY 2019-01-23 10:50:000.8[facility] RdydxyoDVPYZSGSNZ7618-26-46 10:50:005.5[facility] QminjffFVUFBLKSSN7945-02-14 10:50:002.2[facility] PzmxwccXLCSGXNHHG9395-92-99 10:50:000.1[facility] GxlwisxDIZUXJVXZT5759-10-67 10:50:0063.6[facility] [place] NGSJHAVECT5874-56-65 10:50:008.9[facility] WpdsvhxQTURFWVGVN8649-60-85 10:50:002.3 [facility] KxjhjvzCUPLYRHFHO7909-87-44 10:50:00Normal (01/23/19 5:50 AM)[facility] BdryxkrKYNTTNJXEB3447-46-72 10:50:00Normal (01/23/19 5:50 AM)[facility] [place] BLXQTOPPUF5519-41-74 10:50:0025.1[facility] MpvsbhjWAQLYCRBEF5918-11-29 10:50:00 13.1[facility] XgepabgYVJNAPBMEK7495-56-25 10:50:76713Usiwticx HermannHEMATOLOGY 2019-01-23 10:50:007.7[facility] GdxriktPWVBDMRTQU8584-58-06 10:50:008.6[facility] UrtmyfkXIBKUXIZJC4366-23-24 10:50:0010.0[facility] WaslqvfLODRSTEWEP5785-19-62 10:50:0034.6[facility] DeaicfxHJFGTOOXGU0707-93-59 10:50:0028.7[facility] [place] MTJAARUAJH0930-44-87 10:50:0087.8[facility] HssfrvmVNFBMXPDBB4068-24-09 10:50:00 Test Item Value Reference Range Interpretation Comments MCH (test code = MCH) 30.4 pg 27.0-31.0 [facility] SrfyyuoGVZFKSQXQJ5848-34-94 10:50:003.27[facility] HermannCHEM PANEL 2019-01-22 11:32:002.4[facility] HermannCHEM JHMBG4437-60-79 09:04:003.0[facility]annURINE AND JCVBP9475-97-06 07:14:00 Test Item Value Reference Range Interpretation Comments UA Spec Grav (test code = UA Spec 1.014 1 Grav) [facility] AND DLKMU8458-94-97 07:14:00 Test Item Value Reference Range Interpretation Comments UA pH (test code = UA pH) 6.0 1 5.0-8.0 [facility] SNRMU5320-19-17 07:14:00Negative (01/22/19 2:14 AM) [facility] SDZYY3987-50-14 07:14:00Negative *NA*(01/22/19 2:14 AM) [facility] ARHMB4220-38-83 07:14:00Negative *NA*(01/22/19 2:14 AM) [facility] TCQVE5212-93-25 07:14:00Negative *NA*(01/22/19 2:14 AM) [facility] AMAXW6709-77-06 07:14:00Negative (01/22/19 2:14 AM) [facility] XNNGB6824-33-80 07:14:00Negative (01/22/19 2:14 AM) [facility] IVSWX1543-09-37 07:14:00Negative (01/22/19 2:14 AM) [facility] TCXNG0880-48-81 07:14:00<1[facility] AND GZWIK7795-27-67 07:14:0025[facility]ann[facility] AND LUBNX5544-65-82 07:14:002 [facility] XZQUF6219-11-63 07:14:00Light Yellow *NA*(01/22/19 2:14 AM)[facility] XSFTM7036-17-11 07:14:00Clear (01/22/19 2:14 AM) [facility] NkzvxjxOBLEM4570-75-14 05:16:000.90[facility] HermannBLOOD BANK RESULTS 2019-01-22 05:01:00Negative (01/22/19 12:01 AM)[facility] HermannCARDIAC ENZYMES 2019-01-22 05:01:00<0.02[facility] HermannCARDIAC KPCGCFH9475-12-52 05:01:0049 [facility]annCHEM IRFVQ5586-45-91 05:01:000.6[facility] HermannCHEM PANEL 2019-01-22 05:01:68668Uwwkzhsx HermannCHEM WSEUW0760-27-62 05:01:004.0[facility] HermannCHEM UIBJL8480-74-29 05:01:0017[facility] HermannCHEM DAFVC3318-38-82 05:01:0025[facility] HermannCHEM TLNPC9469-79-33 05:01:008.1[facility] HermannCHEM CVUUV0598-37-39 05:01:00 Test Item Value Reference Range Interpretation Comments B/C Ratio (test code = B/C Ratio) 20 1 6-25 [facility]annCHEM UMWMS8615-79-17 05:01:00 Test Item Value Reference Range Interpretation Comments A/G Ratio (test code = A/G Ratio) 1.0 1 0.7-1.6 [facility]annCHEM DNAEY1576-57-20 05:01:004.1[facility] HermannCHEM PANEL 2019-01-22 05:01:006.90[facility] NczzifiOTONLZAFIOWSJ4597-24-90 05:01:00Negative *NA*(01/22/19 12:01 AM)[facility] NjrboitQQFHNJHSKQ7996-99-55 05:01:000.1[facility] CwxoionZNJSQSXJMF0301-69-08 05:01:000.7[facility] AhhragvJADWUORXDN8366-13-44 05:01:000.0[facility] IbaehvuPUXVGGPJDP1879-75-58 05:01:000.0[facility] [place] OCYWPQWGSR6371-16-39 05:01:000.9[facility] YmwrxywKWSKBIKQKK4571-08-54 05:01:008.6 [facility] MfumvcxXLPSPLOBTM8597-72-17 05:01:000.6[facility] HermannHEMATOLOGY 2019-01-22 05:01:0086.5[facility] VetcvwoHOARYGAPGQ4161-66-18 05:01:005.7[facility] YwofxhqQCQKQPKAAD6674-13-01 05:01:006.9[facility] AqvghgeQACUDXQSQR8740-05-85 05:01:009.9[facility] YofemgnWTWIGMGPTC3288-42-95 05:01:0032.8[facility] Yonis DTQSJRYVQO9432-04-76 05:01:0013.6[facility] QhjmmybYRSPOWFDRB7432-69-39 05:01:00 443[facility] BrbpgtbFKGXIZGDPD7449-48-99 05:01:007.3[facility] HermannHEMATOLOGY 2019-01-22 05:01:0014.0[facility] BsoexkwWIEVCRZQOI5468-24-39 05:01:004.85[facility] KeugkzwUSRHPIFMGR6569-43-18 05:01:0042.7[facility] UmiypvyOYQDQRLVQM5962-75-37 05:01:00 Test Item Value Reference Range Interpretation Comments MCH (test code = MCH) 29.0 pg 27.0-31.0 [facility]ZBGZIQAYN7758-12-73 05:01:0088.2[facility] HermannHEMATOLOGY 2019-01-22 05:01:00 Test Item Value Reference Range Interpretation Comments INR (test code = INR) 0.96 1 0.85-1.17 [facility]iscoZdakhpoBBIMJOVVVD6754-61-66 05:01:00 Test Item Value Reference Range Interpretation Comments PT (test code = PT) 12.6 s 12.0-14.7 [facility]RhkwxsqWYKRYHKWXK4808-85-63 05:01:00 Test Item Value Reference Range Interpretation Comments PTT (test code = PTT) 25.9 s 22.9-35.8 [facility]wayDnmidqpWWZ0L2454-54-82 14:36:00 Test Item Value Reference Range Interpretation [...] 0.00-0.01 N code = ETOHU) Comprehensive Metabolic Ndvme1094-24-50 14:36:00 Test Item Value Reference Range Interpretation [...] the National Kidney Foundation,http ://nkd ep.nih.gov Urinalysis Cqkpszqa4983-84-25 14:32:00 Test Item Value Reference Range Interpretation Comments Color (test code = COLOR) Yellow Yellow,Straw,Pl N yellow Clarity (test code = Clear Clear N CLAR) Specific [place] (test 1.024 1.001-1.035 N code = SPGR) [...] code = Few /HPF BACT) CBC with Jedbyjzlwyzi6285-92-46 14:21:00 Test Item Value Reference Range Interpretation [...] code = ALYMPH) 3.0 K/cumm 0.5-4.6 N Moffat Abs (test code = AMONO) 0.5 K/cumm 0.0-1.2 N Eos Abs (test code = AEOS) 0.19 K/cumm 0.00-0.74 N Baso Abs (test code = ABASO) 0.1 K/cumm 0.00-0.21 N
[2020-04-06] MEDS ORDERED: LORAZEPAM 1 MG TABLET ONE (08:29)
[2020-04-06] MEDS ORDERED: PROMETHAZINE 25 MG TABLET ONE (09:03)
--- NOTE | 2020-04-06 09:16 | EDPHYS ---
Physician Documentation [facility] Name: Tiffany Quinn Age: 49 yrs Sex: Female : 1970 Arrival Date: 04/06/2020 Time: 08:08 Bed 6 Private MD: ED Physician Bill Palm HPI: 04/06 08:28 This 49 yrs old Female presents to ER via EMS with complaints of Anxiety, jo Medication Refill. 08:28 This 49 yrs old Female presents to ER via EMS with complaints of Anxiety, jo Medication Refill. 08:28 The patient presents to the emergency department requesting refill(s) for: ativan. The jo patient chronically suffers from adha, anxiety, bipolar. The patient has experienced similar episodes in the past, multiple times. Historical: - Allergies: 08:12 Stadol; bp 08:12 Toradol; bp 08:12 Haldol; bp - Home Meds: 08:12 Ativan Oral [Active]; Strattera oral oral [Active]; Prozac Oral [Active]; olanzapine bp oral oral [Active]; Hydroxyzine Oral [Active]; - PMHx: 08:12 ADD/ADHD; Anxiety; Bipolar disorder; Hernia; Migraines; PSYCH PROBLEMS; Schizophrenia; bp unsure if she is; Seizures; - Immunization history:: Adult Immunizations up to date. - Social history:: Smoking status: Patient denies any tobacco usage or history of. - Family history:: not pertinent. ROS: 08:28 Constitutional: Negative for fever, chills, and weight loss, Eyes: Negative for injury, jo pain, redness, and discharge, ENT: Negative for injury, pain, and discharge, Neck: Negative for injury, pain, and swelling, Cardiovascular: Negative for chest pain, palpitations, and edema, Respiratory: Negative for shortness of breath, cough, wheezing, and pleuritic chest pain, Abdomen/GI: Negative for abdominal pain, nausea, vomiting, diarrhea, and constipation, Back: Negative for injury and pain, : Negative for injury, bleeding, discharge, and swelling, MS/Extremity: Negative for injury and deformity, Skin: Negative for injury, rash, and discoloration, Neuro: Negative for headache, weakness, numbness, tingling, and seizure, Allergy/Immunology: Negative for hives, rash, and allergies, Endocrine: Negative for neck swelling, polydipsia, polyuria, polyphagia, and marked weight changes, Hematologic/Lymphatic: Negative for swollen nodes, abnormal bleeding, and unusual bruising. 08:28 Psych: Positive for anxiety. Exam: 08:28 Constitutional: This is a well developed, well nourished patient who is awake, alert, jo and in no acute distress. Head/Face: Normocephalic, atraumatic. Eyes: Pupils equal round and reactive to light, extra-ocular motions intact. Lids and lashes normal. Conjunctiva and sclera are non-icteric and not injected. Cornea within normal limits. Periorbital areas with no swelling, redness, or edema. ENT: Nares patent. No nasal discharge, no septal abnormalities noted. Tympanic membranes are normal and external auditory canals are clear. Oropharynx with no redness, swelling, or masses, exudates, or evidence of obstruction, uvula midline. Mucous membranes moist. Neck: Trachea midline, no thyromegaly or masses palpated, and no cervical lymphadenopathy. Supple, full range of motion without nuchal rigidity, or vertebral point tenderness. No Meningismus. Chest/axilla: Normal chest wall appearance and motion. Nontender with no deformity. No lesions are appreciated. Respiratory: Lungs have equal breath sounds bilaterally, clear to auscultation and percussion. No rales, rhonchi or wheezes noted. No increased work of breathing, no retractions or nasal flaring. Abdomen/GI: Soft, non-tender, with normal bowel sounds. No distension or tympany. No guarding or rebound. No evidence of tenderness throughout. Back: No spinal tenderness. No costovertebral tenderness. Full range of motion. Skin: Warm, dry with normal turgor. Normal color with no rashes, no lesions, and no evidence of cellulitis. MS/ Extremity: Pulses equal, no cyanosis. Neurovascular intact. Full, normal range of motion. Neuro: Awake and alert, GCS 15, oriented to person, place, time, and situation. Cranial nerves II-XII grossly intact. Motor strength 5/5 in all extremities. Sensory grossly intact. Cerebellar exam normal. Normal gait. Psych: Awake, alert, with orientation to person, place and time. Behavior, mood, and affect are within normal limits. 08:28 Chest/axilla: Inspection: normal, no acute changes. 08:28 Cardiovascular: Rate: tachycardic, Rhythm: regular, Pulses: Pulses are 4+ in bilateral radial, brachial, femoral, popliteal, posterior tibial and and dorsalis pedis arteries.. Heart sounds: normal, Edema: is not appreciated, JVD: is not appreciated. 08:37 ECG was reviewed by the Attending Physician. jo Vital Signs: 08:09 BP 103 / 75; Pulse 120; Resp 20; Temp 99; Pulse Ox 100% ; Weight 74.84 kg; Height 5 ft. bp 2 in. (157.48 cm); 08:58 BP 133 / 90; Pulse 98; Resp 18; Pulse Ox 98% ; bp 09:22 BP 126 / 99; Pulse 105; Resp 16; Temp 98.9; Pulse Ox 97% ; bp 08:09 Body Mass Index 30.18 (74.84 kg, 157.48 cm) bp MDM: 08:09 Patient medically screened. [facility] 08:32 Data reviewed: vital signs, nurses notes, EKG. [facility] 08:33 Data interpreted: environmental monitoring specialist: rate is 113 beats/min, Pulse oximetry: on room air jo is 100 %. Test interpretation: by ED physician or midlevel provider: ECG. Counseling: I had a detailed discussion with the patient and/or guardian regarding: the historical points, exam findings, and any diagnostic results supporting the discharge/admit diagnosis, lab results, the need for outpatient follow up, for definitive care, a psychiatrist. Medication response: ativan good response. 08:34 ED course: pt has psych appoint on Wednesday, out of ativan, will follow up and will jo return if symptoms worsen or persist. 04/06 09:02 Order name: Urine Dipstick--Ancillary (enter results) eb 04/06 09:02 Order name: Urine --Ancillary (enter results) eb 04/06 08:23 Order name: EKG; Complete Time: 08:23 bp 04/06 08:23 Order name: EKG - Nurse/Tech; Complete Time: 08:23 bp 04/06 08:27 Order name: PO challenge; Complete Time: 08:58 jo 04/06 08:27 Order name: Urine Dipstick-Ancillary (obtain specimen); Complete Time: 08:58 jo EC:37 Rate is 113 beats/min. Rhythm is regular. QRS [place] is Normal. DC interval is normal. jo QRS interval is normal. QT interval is normal. No Q waves. T waves are Normal. No ST changes noted. Clinical impression: Sinus tachycardia and No evidence of ischemia. Interpreted by me. Reviewed by me. Administered Medications: 08:23 Drug: Ativan 2 mg Route: PO; bp 08:58 Follow up: Response: Anxiety decreased bp 09:30 Drug: [place] 5 mg-325 mg 1 tabs Route: PO; bp 09:36 Follow up: Response: No adverse reaction; Pain is decreased bp Disposition: 04/06/20 09:16 Discharged to Home. Impression: Anxiety disorder, unspecified, Bipolar disorder. - Condition is Stable. - Discharge Instructions: Bipolar Disorder, Generalized Anxiety Disorder. - Prescriptions for Ativan 1 mg Oral Tablet - take 1 tablet by ORAL route every 8 hours As needed; 20 tablet. - Medication Reconciliation Form, Thank You Letter, Antibiotic Education, Prescription Opioid Use form. - Follow up: Jc Odell; When: 2 - 3 days; Reason: Recheck today's complaints, Continuance of care, Re-evaluation by your physician. Follow up: Chilo Smith; When: 5 - 6 days; Reason: Recheck today's complaints, Re-evaluation by your physician. - Problem is an acute exacerbation. - Symptoms have improved. Signatures: Dispatcher [employer] EDBill Jean MD MD cha Peltier, Brian, RN RN bp Corrections: (The following items were deleted from the chart) 09:37 09:16 04/06/2020 09:16 Discharged to Home. Impression: Anxiety disorder, unspecified; bp Bipolar disorder. Condition is Stable. Discharge Instructions: Bipolar Disorder, Generalized Anxiety Disorder. Prescriptions for Ativan 1 mg Oral Tablet - take 1 tablet by ORAL route every 8 hours As needed; 20 tablet, Benadryl 25 mg Oral Capsule - take 1 capsule by ORAL route every 6 hours As needed; 30 tablet. and Forms are Medication Reconciliation Form, Thank You Letter, Antibiotic Education, Prescription Opioid Use. Follow up: Jc Odell; When: 2 - 3 days; Reason: Recheck today's complaints, Continuance of care, Re-evaluation by your physician. Follow up: Chilo Smith; When: 5 - 6 days; Reason: Recheck today's complaints, Re-evaluation by your physician. Problem is an acute exacerbation. Symptoms have improved. jo
--- NOTE | 2020-04-06 09:16 | ER ---
Nurse's Notes [facility] Name: Tiffany Quinn Age: 49 yrs Sex: Female : 1970 Arrival Date: 04/06/2020 Time: 08:08 Bed 6 Private MD: Diagnosis: Anxiety disorder, unspecified;Bipolar disorder Presentation: 04/06 08:09 Chief complaint: EMS states: ANXIETY AFTER RUNNING OUT OF ATIVAN. Coronavirus screen: bp Proceed with normal triage. Ebola Screen: No symptoms or risks identified at this time. Initial Sepsis Screen: Does the patient meet any 2 criteria? HR > 90 bpm. No. Patient's initial sepsis screen is negative. Does the patient have a suspected source of infection? No. Patient's initial sepsis screen is negative. Risk Assessment: Do you want to hurt yourself or someone else? Patient reports no desire to harm self or others. Onset of symptoms was April 06, 2020. 08:09 Method Of Arrival: EMS: [facility] bp 08:09 Acuity: MANUEL 4 bp Triage Assessment: 08:12 General: Appears in no apparent distress. comfortable, Behavior is cooperative, bp appropriate for age, anxious. Pain: Denies pain. EENT: No deficits noted. Neuro: Level of Consciousness is awake, alert, obeys commands, Oriented to person, place, time, situation, Appropriate for age. Cardiovascular: Rhythm is sinus tachycardia. Respiratory: No deficits noted. GI: No signs and/or symptoms were reported involving the gastrointestinal system. : No signs and/or symptoms were reported regarding the genitourinary system. Derm: No deficits noted. Musculoskeletal: No deficits noted. Historical: - Allergies: 08:12 Stadol; bp 08:12 Toradol; bp 08:12 Haldol; bp - Home Meds: 08:12 Ativan Oral [Active]; Strattera oral oral [Active]; Prozac Oral [Active]; olanzapine bp oral oral [Active]; Hydroxyzine Oral [Active]; - PMHx: 08:12 ADD/ADHD; Anxiety; Bipolar disorder; Hernia; Migraines; PSYCH PROBLEMS; Schizophrenia; bp unsure if she is; Seizures; - Immunization history:: Adult Immunizations up to date. - Social history:: Smoking status: Patient denies any tobacco usage or history of. - Family history:: not pertinent. Screenin:13 Abuse screen: Denies threats or abuse. Denies injuries from another. Nutritional bp screening: No deficits noted. Tuberculosis screening: No symptoms or risk factors identified. Fall Risk None identified. Assessment: 08:13 General: SEE TRIAGE NOTE. bp 08:59 Reassessment: ALL CURRENT ORDERS COMPLETED, DISPO PENDING. bp 09:23 Reassessment: PT D/C HOME AMBULATORY, DX WITH ANXIETY D/O. bp Vital Signs: 08:09 BP 103 / 75; Pulse 120; Resp 20; Temp 99; Pulse Ox 100% ; Weight 74.84 kg; Height 5 ft. bp 2 in. (157.48 cm); 08:58 BP 133 / 90; Pulse 98; Resp 18; Pulse Ox 98% ; bp 09:22 BP 126 / 99; Pulse 105; Resp 16; Temp 98.9; Pulse Ox 97% ; bp 08:09 Body Mass Index 30.18 (74.84 kg, 157.48 cm) bp ED Course: 08:08 Patient arrived in ED. bp 08:09 Bill Palm MD is Attending Physician. jo 08:10 Triage completed. bp 08:12 Arm band placed on. bp 08:13 Armani Devries, RN is Primary Nurse. bp 08:13 Patient has correct armband on for positive identification. Bed in low position. Call bp light in reach. Side rails up X2. 08:53 Pulse ox on. NIBP on. mh5 08:53 EKG done, by ED staff, reviewed by Bill Palm MD. 5 09:16 Jc Odell MD is Referral Physician. jo 09:16 Chilo Smith MD is Referral Physician. jo 09:23 No provider procedures requiring assistance completed. Patient did not have IV access bp during this emergency room visit. Administered Medications: 08:23 Drug: Ativan 2 mg Route: PO; bp 08:58 Follow up: Response: Anxiety decreased bp 09:30 Drug: Melrose 5 mg-325 mg 1 tabs Route: PO; bp 09:36 Follow up: Response: No adverse reaction; Pain is decreased bp Outcome: 09:16 Discharge ordered by . jo 09:23 Discharged to home ambulatory. bp 09:23 Condition: stable 09:23 Discharge instructions given to patient, Instructed on discharge instructions, follow up and referral plans. medication usage, Demonstrated understanding of instructions, follow-up care, medications, Prescriptions given X 1. 09:37 Patient left the ED. bp Signatures: Bill Palm MD MD cha Martinez, [facility] Armani Devries, JIGNA RN bp Corrections: (The following items were deleted from the chart) 08:14 08:09 BP 103 / 75; Pulse 120bpm; Resp 20bpm; Pulse Ox 100%; Temp 99F; bp bp
[2020-04-06] MEDS ORDERED: HYDROCODONE/APAP 5/325 MG TAB ONE (09:34)
[2020-04-06 09:35] LABS: Urine Blood NEGATIVE (NEG); Urine Glucose NEGATIVE (NEG); Urine Protein NEGATIVE (NEG)
[2020-04-06 09:45] VITALS: BP 126/99; TEMP 98.9; O2SAT 97
== END 2020-04-06 09:37 | disposition home or self-care (01) ==
LOC: ER 08:07
DX: F41.9 Anxiety disorder, unspecified (principal); F31.9 Bipolar disorder, unspecified; Z88.6 Allergy status to analgesic agent
CPT/HCPCS: 81003; 81025; 93005; 99284; Q0169

== ENCOUNTER 2020-04-18 11:17 | Observation (INO) | payer OTHER ==
[2020-04-18 11:44] VITALS: BMI 28.8
[2020-04-18] MEDS ORDERED: hydrOXYzine HCL 25 MG TAB PO PRN (11:44)
[2020-04-18] MEDS ORDERED: LORAZEPAM 0.5 MG TABLET PO PRN (11:44)
--- NOTE | 2020-04-18 12:15 | P.HP ---
Certification for Inpatient Patient admitted to: Observation With expected LOS: <2 Midnights Practitioner: I am a practitioner with admitting privileges, knowledge of patient current condition, hospital course, and medical plan of care. Services: Services provided to patient in accordance with Admission requirements found in Title 42 Section 412.3 of the Code of Federal Regulations Patient History Date of Service: 04/18/20 Primary Care Provider: Stanley Reason for admission: bipolar disorder, maniac episode History of Present Illness: Patient is a troubled young woman who came to the office today. The patient was very manic she had a bipolar spectrum score of 19. She had very much pressured speech and flight of ideas She had been calling the office for the past 2 days asking for adderall. She states she has been getting it since she was a teenager. 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 She has gone to our ER 6 times this past month. Usually gets norco and benzodiazepams and is sent home for anxiety. The patient states that her mother also uses benzodiazepams. She has been to Dr. Sellers's office. He started her on librium and hydroxine to get her off the benzodiazepam Have called Dr. Liu an he has been getting calls from the patient asking for adhd medications. She has asked for several different types of adhd and benzodiazepams. After discussion with Dr. Liu will admit the patient. She does not seem safe to be on her own. She seems to be harvesting the pills she was given in the past. The patient is not drug seeking. She is trying to control her symptoms with the meds she has been given in the past. However this can be dangerous. I drove the patient from the office to the hospital as she does not have transportation. Mrs Julissa Krishnan WALL CRANE OPERATOR acompanied us as an WALL CRANE OPERATOR. Allergies No Known Allergies Allergy (Verified 10/16/19 23:45) Home Medications: Ciprofloxacin HCl [Cipro 500 MG Tablet] 500 mg PO BID #10 tab 10/17/19 metroNIDAZOLE [Flagyl] 500 mg PO Q8H #15 tablet 10/17/19 - Past Medical/Surgical History Has patient received pneumonia vaccine in the past: No Diabetic: No -: bipolar disorder -: ADD -: Migraines -: Breast implants -: Cholecystectomy -: Hernia repair Psychosocial/ Personal History: She currently lives alone. - Family History Mother -: Lung disease Notes: smoker, COPD Father -: Diabetes - Social History Smoking Status: Former smoker Alcohol use: No CD- Drugs: No Caffeine use: Yes Place of Residence: Home Review of Systems Neurological: Change in Speech (pressured speach, flight of ideas), Confusion Physical Examination - Physical Exam General: Alert, In no apparent distress, Delirious HEENT: Atraumatic, PERRLA, Mucous membr. moist/pink, EOMI, Sclerae nonicteric Neck: Supple, 2+ carotid pulse no bruit, No LAD, Without JVD or thyroid abnormality Respiratory: Clear to auscultation bilaterally, Normal air movement Cardiovascular: Regular rate/rhythm, Normal S1 S2 Gastrointestinal: Normal bowel sounds, No tenderness Musculoskeletal: No tenderness Integumentary: No rashes Neurological: Normal gait, Normal speech, Normal strength at 5/5 x4 extr, Normal tone, Normal affect Lymphatics: No axilla or inguinal lymphadenopathy Assessment and Plan - Problems (Diagnosis) (1) Bipolar disorder (manic depression) Current Visit: Yes Status: Acute Plan: Patient is having flight of ideas. 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 Has a history of methadone and methamphetamine abuse. She is actively seeking medications. Will admit her to the hosptial Will start her on vraylar. Stop the latuda. Will consult Dr. Sellers. Have called Dr. Manriquez's office. We need to stop the adhd meds which can precipitate a manic episode. Will see if we can also stop the benzodiazepam Qualifiers: Active/Remission status: currently active Current bipolar episode type: manic Current episode severity: severe Psychotic features: with psychotic features Qualified Code(s): F31.2 - Bipolar disorder, current episode manic severe with psychotic features (2) Benzodiazepine abuse, continuous Current Visit: Yes Status: Chronic Plan: will continue Dr. Liu use of librium and hydroxyzine Discharge Plan: Home - Advance Directives Does patient have a Living Will: No Does patient have a Durable POA for Healthcare: No - Code Status/Comfort Care Code Status: Full Code Critical Care: No Time Spent Managing Pts Care (In Minutes): 90
[2020-04-18 12:51] LABS: Absolute Lymphocytes (CBC) 2.8 K/uL (0.7-4.9); Basophils % 0.9 % (0-1.3); Lymphocytes % 35.5 % (15.3-44.8); MPV 7.3 fL (7.6-11.3); RBC Red Blood Cell Count 4.36 M/uL (3.86-4.86)
--- OUTSIDE RECORDS SUMMARY | 2020-04-18 12:56 | XMS REPORT | Continuity of Care Document ---
:1970 Author Organization [employer] Care Team Providers Name Role Phone [employer] Unavailable Un available Problems Problem Status Onset [...] tab, Active hydrochloride PO, Q6H, PRN 2018 [facility] 50 MG Oral Pain Score Tablet 1-3, X 5 day, # 20 tab, 0 Refill(s) Metronidazole 500 mg = 1 Active 500 MG Oral tab, PO, 2019 [facility] Tablet [id number], X 4 day, # 12 tab, 0 Refill(s) ciprofloxacin 500 mg = 1 Active 500 mg oral tab, PO, 2019 [facility] tablet [id number], X 4 day, # 8 tab, 0 Refill(s) Potassium Notes: (Same Inactive Chloride as: K-Dur 20) 2018 [facility] "Do Not Crush" Give with food and full glass of water For patients unable to swallow tablet, dissolve in one half glass of water. Allow about 2 minutes for the tablets to disintegrate. Stir before giving to prepare slurry and administer. Please exclude Patient’ s with feeding tube less than 14 Irish (Dobhoff, J-tube etc) and pediatric and patients. Strattera 0.5 mg/kg, No Longer Route: PO, Active 2018 [facility] QAM, Dosing Weight 75, kg, Start date: 01/24/19 9:00:00 CDT, Duration: 30 day, Stop date: 02/22/19 9:00:00 CDT lithium Notes: Do not No Longer crush or chew. Active 2018 [facility] (Same as: Eskalith-CR) Risperdal Notes: (Same No Longer as: Risperdal) Active 2018 [facility] Strattera 1 mg, Route: No Longer PO, QPM, Active 2018 [facility] Dosing Weight 75, kg, Start date: 01/23/19 17:00:00 CDT, Duration: 30 day, Stop date: 02/21/19 17:00:00 CDT normal saline 1,000 mL, No Longer 0.9% IV 1,000 Rate: 100 [facility], Infuse over: 10 hr, Route: IV, Dosing Weight 75 kg, Total Volume: 1,000, Start date: 01/23/19 14:18:00 CDT, Duration: 30 day, Stop date: 02/22/19 14:17:00 CDT, 1.84, m2 Clonazepam Notes: (Same No Longer As: KlonoPIN) Active 2018 [facility] Flagyl Notes: (Same No Longer as: Flagyl) Active 2018 [facility] Take with food/ avoid alcohol Cipro Notes: May No Longer interfere Active 2018 [facility] w/enteral feedings - Take 1 hr before or 2 hrs after antacids, dairy pdt & minerals. On empty stomach. tramadol 50 mg = 1 tab, No Longer hydrochloride PO, Q6H, PRN Active 2018 [facility] 50 MG Oral Pain Score Tablet 1-3, 0 Refill(s) potassium 40 mEq, PO, Active chloride 20 mEq ONCE, 0 2018 [facility] oral tablet, Refill(s) extended release Metronidazole 500 mg, PO, No Longer 500 MG Oral [id number], 0 Active 2018 [facility] Tablet [Flagyl] Refill(s) Ciprofloxacin 500 mg, PO, No Longer 500 MG Oral [id number], 0 Active 2018 [facility] Tablet [Cipro] Refill(s) Potassium Notes: (Same Inactive Chloride as: K-Dur 20) 2019 [facility] "Do Not Crush" Give with food and full glass of water For patients unable to swallow tablet, dissolve in one half glass of water. Allow about 2 minutes for the tablets to disintegrate. Stir before giving to prepare slurry and administer. Please exclude Patient’ s with feeding tube less than 14 Irish (Dobhoff, J-tube etc) and pediatric and patients. Pepcid Notes: (Same No Longer as: Pepcid) Active 2018 [facility] Strattera 0.5 mg/kg, PO, Active QAM, 0 2018 [facility] Refill(s) lithium 450 mg 450 mg = 1 Active oral tablet, tab, PO, 2018 [facility] extended Bedtime, # 60 release tab, 0 Refill(s) clonazePAM 0.5 0.5 mg = 1 Active mg oral tablet tab, PO, TID, 2018 [facility] # 90 tab, 0 Refill(s) Risperidone 0.5 0.5 mg = 1 Active MG Oral Tablet tab, PO, BID, 2018 [facility] [Risperdal] 0 Refill(s) Zosyn Notes: (Same No Longer as: Zosyn) Active 2018 [facility] Dosing based on Piperacillin component MEDICATION WASTE Product Size: 3375 mg Product Wasted: ___ mg Tramadol Notes: Not to No Longer exceed Active 2018 [facility] 400mg/day. (Same As: Ultram) normal saline 1,000 mL, No Longer 0.9% IV 1,000 Rate: 150 Active 2018 [facility] t mL ml/hr, Infuse over: 6.7 hr, Route: IV, Dosing Weight 75.994 kg, Total Volume: 1,000, Start date: 01/22/19 4:48:00 CDT, Duration: 30 day, Stop date: 02/21/19 4:47:00 CDT Ondansetron Notes: (Same No Longer as: Zofran) Active 2018 [facility] MEDICATION WASTE Product Size: 4 mg Product Wasted: ___ mg Glucagon 1 mg, Route: No Longer IM, Drug form: Active 2018 [facility] PDR/INJ, PRN, Dosing Weight 75.994, kg, PRN Blood Glucose Results, Start date: 01/22/19 4:47:00 CDT, Duration: 30 day, Stop date: 02/21/19 4:46:00 CDT Dextrose 50% 12.5 gm, 25 No Longer Syringe mL, Route: Active 2018 [facility] IVP, Drug Form: INJ, Dosing Weight 75.994, kg, PRN, PRN Blood Glucose Results, Start date: 01/22/19 4:47:00 CDT, Duration: 30 day, Stop date: 02/21/19 4:46:00 CDT Zofran Notes: (Same Inactive as: Zofran) 2018 [facility] MEDICATION WASTE Product Size: 4 mg Product Wasted: ___ mg NS (Bolus) IV 1,000 mL, Inactive 1,000 ml/hr, 2018 [facility] Infuse Over: 1 hr, Route: IV, 1,000, Drug form: INJ, ONCE, Priority: STAT, Dosing Weight 75.994 kg, Start date: 01/22/19 3:52:00 CDT, Stop date: 01/22/19 3:52:00 CDT Visipaque 320 Notes: (Same Inactive mg/mL as: 2019 [facility] injectable Visipaque). solution WASTE: F/P - Black; E - [employer] Zosyn Notes: (Same Inactive as: Zosyn) 2018 [facility] Dosing based on Piperacillin component MEDICATION WASTE Product Size: 3375 mg Product Wasted: ___ mg NS (Bolus) IV 1,000 mL, Inactive 1,000 ml/hr, 2018 [facility] Infuse Over: 1 hr, Route: IV, 1,000, Drug form: INJ, ONCE, Priority: STAT, Dosing Weight 75.994 kg, Start date: 01/22/19 0:44:00 CDT, Stop date: 01/22/19 0:44:00 CDT Zofran Notes: (Same No Longer as: Zofran) Active 2018 [facility] MEDICATION WASTE Product Size: 4 mg Product Wasted: ___ mg Saline Flush Notes: Same No Longer 0.9% as: BD Active 2018 [facility] Posiflush Sterile NS (Bolus) IV 1,000 mL, No Longer 1,000 ml/hr, Active 2018 [facility] Infuse Over: 1 hr, Route: IV, 1,000, [...] AGAP 8.6 10.0 - 01/26 ES 20.0 [facility] ELECTROLYT Chloride Lvl 107 95 - 109 01/26 [facility] ELECTROLYT CO2 27 24 - 32 01/26 [facility] ELECTROLYT Sodium Lvl 139 135 - 145 01/26 [facility] ELECTROLYT Potassium 3.6 3.5 - 5.1 01/26 [facility] Lv [facility] ELECTROLYT Creatinine 0.70 0.50 - 01/26 ES Lvl 1.40 [facility] ELECTROLYT Calcium Lvl 8.4 8.5 - 10.5 01/26 [facility] ELECTROLYT eGFR 103 01/26 Result Comment: The [facility] eGFR is calculated using the CKD-EPI formula. [...] Glucose Lvl 86 70 - 99 01/26 [facility] ELECTROLYT BUN 6 7 - 22 01/26 [facility] HEMATOLOGY Hgb 11.6 12.0 - 01/26 MH 16.0 [facility] HEMATOLOGY RBC 3.78 4.20 - 01/26 MH 5.40 /2018 [facility] HEMATOLOGY RDW 13.3 11.5 - 01/26 MH 14.5 [facility] HEMATOLOGY MCHC 34.0 32.0 - 01/26 MH 36.0 [facility] HEMATOLOGY WBC 6.3 3.7 - 10.4 01/26 [facility] HEMATOLOGY MCH 30.7 27.0 - 01/26 MH 31.0 [facility] HEMATOLOGY MCV 90.3 80.0 - 01/26 98.0 [facility] HEMATOLOGY Hct 34.2 36.0 - 01/26 MH 48.0 [facility] HEMATOLOGY Platelet 412 133 - 450 01/26 [facility] HEMATOLOGY MPV 7.5 7.4 - 10.4 01/26 [facility] CHEM PANEL eGFR 108 01/25 [facility] Comment: The [facility] eGFR is calculated using the CKD-EPI formula. [...] Calcium Lvl 8.5 8.5 - 10.5 01/25 [facility] CHEM PANEL AGAP 13.3 10.0 - 01/25 MH 20.0 [facility] CHEM PANEL CO2 24 24 - 32 01/25 [facility] CHEM PANEL Chloride Lvl 109 95 - 109 01/25 [facility] CHEM PANEL Glucose Lvl 81 70 - 99 01/25 [facility] CHEM PANEL BUN 2 7 - 22 01/25 [facility] CHEM PANEL Potassium 3.3 3.5 - 5.1 01/25 [facility] CHEM PANEL Creatinine 0.60 0.50 - 01/25 MH Lvl 1.40 [facility] CHEM PANEL Sodium Lvl 143 135 - 145 01/25 [facility] MOLECULAR C difficile Negative Negative 01/23 DIAGNOSTIC DNA (01/23/19 11:22 AM) [facility] CHEM PANEL Procalcitoni 2.76 0.00 - 01/23 Result n Lvl 0.10 Comment: [facility] Critical Result(s) called to A Levin at 01/23/2019 12:56 by cz. Read back OK. CHEM PANEL Lactic Acid 0.9 0.5 - 2.2 01/23 [facility] CHEM PANEL Magnesium 2.0 1.8 - 2.4 01/23 [facility] CHEM PANEL eGFR 115 01/23 Result Comment: The [facility] eGFR is calculated using the CKD-EPI formula. [...] PANEL CO2 23 24 - 32 01/23 [facility] CHEM PANEL Chloride Lvl 113 95 - 109 01/23 [facility] CHEM PANEL Potassium 3.1 3.5 - 5.1 01/23 [facility] CHEM PANEL Sodium Lvl 143 135 - 145 01/23 [facility] CHEM PANEL BUN 5 7 - 22 01/23 [facility] CHEM PANEL Creatinine 0.50 0.50 - 04 MH Lvl 1.40 /2018 [facility] CHEM PANEL Calcium Lvl 7.8 8.5 - 10.5 01/23 [facility] CHEM PANEL Glucose Lvl 83 70 - 99 01/23 [facility] CHEM PANEL AGAP 10.1 10.0 - 01/23 20.0 /2018 [facility] HEMATOLOGY Eosinophils 0.2 0.0 - 0.5 01/23 # [facility] HEMATOLOGY Monocytes # 0.8 0.0 - 0.8 01/23 [facility] HEMATOLOGY Neutrophils 5.5 1.5 - 8.1 01/23 [facility] HEMATOLOGY Lymphocytes 2.2 1.0 - 5.5 01/23 [facility] HEMATOLOGY Basophils 0.1 0.0 - 1.0 01/23 [facility] HEMATOLOGY Segs 63.6 45.0 - 01/23 75.0 /2018 [facility] HEMATOLOGY Monocytes 8.9 2.0 - 12.0 01/23 [facility] HEMATOLOGY Eosinophils 2.3 0.0 - 4.0 01/23 [facility] HEMATOLOGY RBC Morph Normal 01/23 (01/23/19 5:50 AM) [facility] HEMATOLOGY Plt Morph Normal 01/23 (01/23/19 5:50 AM) [facility] HEMATOLOGY Lymphocytes 25.1 20.0 - 01/23 40.0 [facility] HEMATOLOGY RDW 13.1 11.5 - 01/23 14.5 /2018 [facility] HEMATOLOGY Platelet 327 133 - 450 01/23 [facility] HEMATOLOGY MPV 7.7 7.4 - 10.4 01/23 [facility] HEMATOLOGY WBC 8.6 3.7 - 10.4 01/23 [facility] HEMATOLOGY Hgb 10.0 12.0 - 01/23 Result MH 16.0 Comment: [facility] Notified Raghavendra 01/23/2019 07:32 by smt. HEMATOLOGY MCHC 34.6 32.0 - 04 36.0 /2018 [facility] HEMATOLOGY Hct 28.7 36.0 - 01/23 48.0 /2018 [facility] HEMATOLOGY MCV 87.8 80.0 - 01/23 98.0 /2018 [facility] HEMATOLOGY MCH 30.4 27.0 - 04 31.0 [facility] HEMATOLOGY RBC 3.27 4.20 - 04 5.40 /2019 [facility] Culture: Normal Enteric Pam Isolated 01/22 Stool No Salmonella Or Shigella Isolated [facility] No Campylobacter Isolated CHEM PANEL Lactic Acid 2.4 0.5 - 2.2 01/22 Lvl [facility] CHEM PANEL Lactic Acid 3.0 0.5 - 2.2 01/22 Lvl [facility] URINE AND UA Spec Grav 1.014 <=1.030 01/22 STOOL [facility] URINE AND UA pH 6.0 5.0 - 8.0 01/22 STOOL [facility] URINE AND UA Protein Negative Negative 01/22 STOOL (01/22/19 2:14 AM) /[facility] Glucose Negative Negative 01/22 STOOL *NA* /2018 [facility] (01/22/19 2:14 AM) URINE AND UA Ketones Negative Negative 01/22 STOOL *NA* /2018 [facility] (01/22/19 2:14 AM) URINE AND UA Bili Negative Negative 01/22 STOOL *NA* [facility] (01/22/19 2:14 AM) URINE AND UA Nitrite Negative Negative 01/22 STOOL (01/22/19 2:14 AM) /2018 [facility] URINE AND UA <=1.0 0.1 - 1.0 01/22 STOOL Urobilinogen mg/dL [facility] URINE AND UA Sq Epi Occasional Few /LPF 01/22 STOOL /LPF /2018 [facility] URINE AND UA Leuk Est Negative Negative 01/22 STOOL (01/22/19 2:14 AM) /[facility] Blood Negative Negative 01/22 STOOL (01/22/19 2:14 AM) /2018 [facility] URINE AND UA Mucus Few /LPF None Seen 01/22 STOOL /LPF [facility] URINE AND UA RBC <1 0 - 2 01/22 STOOL [facility] URINE AND UA Hyal Cast 25 0 - 2 01/22 STOOL [facility] URINE AND UA WBC 2 0 - 5 01/22 STOOL [facility] URINE AND UA Color Light Yellow Yellow 01/22 STOOL *NA* [facility] (01/22/19 2:14 AM) URINE AND UA Turbidity Clear Clear 01/22 STOOL (01/22/19 2:14 AM) /2018 [facility] est METAL [place] Lvl 0.90 0.50 - 01/22 1.50 /2018 [facility] BLOOD BANK ABO/Rh A POS 01/22 RESULTS /2018 [facility] BLOOD BANK Antibody Negative 01/22 RESULTS Scrn (01/22/19 12:01 AM) /2018 [facility] CARDIAC Troponin-I <0.02 0.00 - 01/22 ENZYMES 0.40 [facility] CARDIAC Total CK 49 12 - 191 01/22 ENZYMES /2018 [facility] CHEM PANEL Bili Total 0.6 0.2 - 1.3 01/22 /2018 [facility] CHEM PANEL Alk Phos 100 39 - 136 01/22 /2018 [facility] CHEM PANEL Albumin Lvl 4.0 3.5 - 5.0 01/22 [facility] CHEM PANEL AST 17 0 - 37 01/22 /2018 [facility] CHEM PANEL ALT 25 0 - 65 01/22 [facility] CHEM PANEL Total 8.1 6.4 - 8.4 01/22 Protein /2018 [facility] CHEM PANEL B/C Ratio 20 6 - 25 01/22 /2018 [facility] CHEM PANEL A/G Ratio 1.0 0.7 - 1.6 01/22 /2018 [facility] CHEM PANEL Globulin 4.1 2.7 - 4.2 01/22 /2018 [facility] CHEM PANEL Procalcitoni 6.90 0.00 - 01/22 Result n Lvl 0.10 Comment: [facility] Critical Result(s) called to Eliana Vega at 01/22/2019 00:50 by VV. Read back OK. ENDOCRINOL S Preg Negative Negative 01/22 OGY *NA* /2018 [facility] (01/22/19 12:01 AM) HEMATOLOGY Eosinophils 0.1 0.0 - 0.5 01/22 MH # /2019 [facility] HEMATOLOGY Monocytes # 0.7 0.0 - 0.8 01/22 /2018 [facility] HEMATOLOGY Basophils # 0.0 0.0 - 0.2 01/22 /2018 [facility] HEMATOLOGY Basophils 0.0 0.0 - 1.0 01/22 /2018 [facility] HEMATOLOGY Eosinophils 0.9 0.0 - 4.0 01/22 /2018 [facility] HEMATOLOGY Neutrophils 8.6 1.5 - 8.1 01/22 # /2019 [facility] HEMATOLOGY Lymphocytes 0.6 1.0 - 5.5 01/22 MH # /2019 [facility] Segs 86.5 45.0 - 01/22 MH 75.0 /2019 [facility] Lymphocytes 5.7 20.0 - 01/22 MH 40.0 /2018 [facility] Monocytes 6.9 2.0 - 12.0 01/22 /2018 [facility] WBC 9.9 3.7 - 10.4 01/22 /2018 [facility] MCHC 32.8 32.0 - 01/22 MH 36.0 /2018 [facility] RDW 13.6 11.5 - 01/22 14.5 /2018 [facility] Platelet 443 133 - 450 01/22 [facility] MPV 7.3 7.4 - 10.4 01/22 [facility] Hgb 14.0 12.0 - 01/22 16.0 /2018 [facility] RBC 4.85 4.20 - 01/22 5.40 /2018 [facility] Hct 42.7 36.0 - 01/22 MH 48.0 /2018 [facility] MCH 29.0 27.0 - 01/22 31.0 /2018 [facility] MCV 88.2 80.0 - 01/22 98.0 /2018 [facility] INR 0.96 0.85 - 01/22 MH 1.17 /2018 [facility] PT 12.6 12.0 - 01/22 14.7 /2018 [facility] PTT 25.9 22.9 - 01/22 35.8 /2018 [facility] Pathology Reports No Data Provided for This [...] dislocation of the left ankl e. SL: [id number] ED Abdomen/Pelvis IV Clinical Indication: Diarrhe a low blood pressure, abdominal pain. 01/22/2019 [facility] contrast only CT Comparison: None TECHNIQUE: [...] Mild sigmoid diverticulosis without diverticu litis. SL: [id number] Chest 1view DX Clinical Indication: Undifferentiated sepsis. [facility] Comparison: None FINDINGS: AP view of the chest submitted for interpretatio n. Lungs are clear. Heart size is normal. Central pulmonary vasculat ure appears normal. No effusion. No pneumothorax. No radiographically apparent acute osseous abnor mality. IMPRESSION: 1. No radiographically apparent acute cardiopulm onary process. SL: [id number] Consultation Notes No Data Provided for This Section Discharge Summaries No Data Provided for This Section History and Physicals No Data Provided for This Section Vital Signs Vital Sign Value Date Comments Source Temperature Oral (F) 98.6 F 01/28/[facility] Systolic (mm Hg) 137 01/28/2019 [facility] t Diastolic (mm Hg) 84 01/28/2019 [facility] st Heart Rate 82 01/28/2019 [facility] Respitory Rate 18 01/28/2019 [facility] Systolic (mm Hg) 113 01/27/2019 [facility] t Diastolic (mm Hg) 72 01/27/2019 [facility] st Heart Rate 77 01/27/2019 [facility] Respitory Rate 18 01/27/2019 [facility] Temperature Oral (F) 98.5 F 01/27/[facility] Systolic (mm Hg) 108 01/27/2019 [facility] t Diastolic (mm Hg) 71 01/27/2019 [facility] st Temperature Oral (F) 98.5 F 01/27/2019 [facility] Heart Rate 86 01/27/2019 [facility] Respitory Rate 18 01/27/2019 [facility] Height 157.48 cm 01/22/2019 [facility] BMI Calculated 30.24 01/22/2019 [facility] Weight 75 01/22/2019 [facility] Weight 75.994 01/22/2019 [facility] Encounters Location Location Encounter Encounter Reason Attending ADM TX Stat us Source Details Type Number For Provider Date Date Visit [facility] [id number] Ed 01/22 01/28 Yonis Sandovalni /2018 [facility] Procedures No Data Provided for This Section Assessment and Plan Assessment and Plan Date Source Extracted from:Title: Discharge Summary 01/28/2019 [facility] Author: Axel Arriaga MD Date: 01/26/19 [...] abdominal pain, presented to the ER from [facility] for evaluation of hypotension. She complains of [...] and recommended to be transferred back to [facility]. Physical Exam: Vitals Tmp(F) Pulse BP [...] on 01/27/2019 15:26 Patient was to [facility] denied her. I spoke to physician at [facility] who has accepted patient. Extracted from:Title: Progress Note Author: Axel Arriaga MD Date: 01/25/19 48 year old female Admitted with hypotension, abdominal pain and sepsis. Was at [facility] for exacerbation of depression/bipolar disorder. Ct abd/pelvis showed mild enterocolitis . CXR and UA are clear.No leucocytosis. But lactic acid and pro-calcitonin elevated and patient was significantly hypotensive on admission. Patient is currently on IV antibiotics and IV fluids. Colitis improving Hypotension secondary to colitis improved with IV fluids Depression and bipolar disorder with re cent admission at [facility] with concern for psychosis Hypokalemia secondary to diarrhea treated Anemia of chronic disease Plan: Will DC IV fluids, will advance diet to regular diet We will continue with Cipro and Flagyl We will replacepotassiump.o. Discussed with psych response team. The ymentioned that patient is having some delusions but otherwiseno suicidal homicidal ideations. They haveclearthe patient to go back to [facility] rehab once medica lly cleared. Exclusionary paperwork is i n the chart to be signed bythe physician once medically cleared. Discussed in MDR's: Likely dischargeto morrowif tolerating regular diet and labs arewnl Extracted from:Title: History and Physical Author: Ed Demarco DO Date: 01/22/19 48 y/o female with history of bipolar di sorder currently admitted at [facility], depression and abdominal hernia brought in via EMS from [facility] for evaluation of hypotension. 1.Severe sepsis(R65.20) Hypotensive [...] History Date Source Social History TypeResponse 01/22/2019 [facility] Smoking Status Light tobacco smoker; Exposure to Tobacc o Smoke None; Cigarette Smoking Last 365 Days No; Reg Smoking Cessation Counseling No entered on: 01/22/19 Family History No Data Provided for This Section Advance Directives No Data Provided for This Section Functional Status No Data Provided for This Section
--- OUTSIDE RECORDS SUMMARY | 2020-04-18 12:58 | XMS REPORT | Continuity of Care Document ---
:1970 Author Organization [facility] t Address [address] [place] [address] Care Team Providers Name Role Phone UNKNOWN Primary Care Physician Unavailable Dav Attending Clinician LOS Attending Clinician Unavailable Dav Admitting Clinician LOS Admitting Clinician Unavailable Problems Condition Condition Condition Status Onset Resolution Last Treating Co mments Source Name Details Category Date Date Treatment Clinician Date LOW PB Diagnosis Active 2019-01-22 Mem oria 01-21 01:52:00 l LOW PB 00:00: Yonis 00 Active 01/21/2019 [facility] INFECTIOUS Diagnosis Active 2019-02-06 Memoria GASTROENTE 01-21 08:58:00 l RITIS AND 00:00: [place] COLITIS INFECTIOUS 00 GASTROENTE RITIS AND COLITIS Active 01/21/2019 [facility] INFECTIOUS Diagnosis Active 2019-02-06 Memoria GASTROENTE 08:58:00 l RITIS AND Yonis COLITIS, INFECTIOUS GASTROENTE RITIS AND COLITIS, Active [facility] Allergies, Adverse Reactions, Alerts Allergy Allergy Status Severity Reaction(s) Onset Inactive Treating Comm ents Source Name Type Date Date Clinician Phenerga Phenerga Active Wicho Somers Social History Smoking Status Start Date Stop Date Source Social History 2019-01-22 05:00:12 Jeanne [facility] Medications Ordered Filled Start Stop Current Ordering Indication Dosage Frequency Signature Comments Components Source Medication Medication Date Date Medication? Clinician (SIG) Name Name Ondansetron 2019- Yes 4 mg = 1 Me moria 4 MG Oral 4-04 tab, PO, l Tablet 17:35: Q6H, PRN Yonis [Zofran] 00 Nausea/Vom iting, # 20 tab, 0 Refill(s) tramadol Yes 50 mg = 1 Estrada doni [...] 4-04 tab, PO, l oral tablet 17:35: [id number], X Yonis 00 4 day, # 8 [...] s with feeding tube less than 14 Nigerian (Dobhoff, J-tube etc) and pediatric and patients. [...] 17:00:00 CDT, Duration: 30 day, Stop date: 04/30/19 17:00:00 CDT normal No 1,000 mL, Memori a saline 0.9% 01-23 Rate: 100 l IV 1,000 mL 19:18: ml/hr, Herm Infuse over: 10 hr, Route: IV, Dosing Weight 75 kg, Total Volume: 1,000, Start date: 01/23/19 14:18:00 CDT, Duration: 30 day, Stop date: 02/22/19 14:17:00 CDT, 1.84, m2 Clonazepam No Notes: Memor ia 01-23 (Same As: l 18:00: KlonoPIN) [place] 00 Flagyl No Notes: Memoria 01-23 (Same as: l 15:00: Flagyl) Take with food/ avoid alcohol Cipro No Notes: May Memori a 01-23 interfere l 15:00: w/enteral [place] 00 feedings - Take 1 hr before [...] PO, ONCE, l mEq oral 14:20: 0 [place] tablet, 00 Refill(s) extended release Metronidazo No 500 mg, Mem oria le 500 MG 4-01 PO, l Oral Tablet 14:20: [id number], 0 H ermann [Flagyl] 00 Refill(s) Ciprofloxac No 500 mg, Mem oria in 500 MG -01 PO, l Oral Tablet 14:20: [id number], 0 Yonis [Cipro] 00 Refill(s) Potassium No [...] s with feeding tube less than 14 Nigerian (Dobhoff, J-tube etc) and pediatric and patients. Pepcid No Notes: Memoria 3-31 (Same as: l 22:00: Pepcid) Strattera Yes 0.5 mg/kg, Me moria 3-31 PO, QAM, 0 l 21:08: Refill(s) Yonis 00 lithium 450 Yes 450 mg = 1 [...] tab, PO, l Tablet 21:08: BID, 0 [place] [Risperdal] 00 Refill(s) Zosyn No Notes: Memoria 3-31 (Same as: l 16:00: Zosyn) Dosing based on Piperacill in component MEDICATION WASTE Product Size: 3375 mg Product Wasted: ___ mg Tramadol No Notes: Not Mem oria - to exceed l 15:03: 400mg/day. (Same As: [...] 4 mg Product Wasted: ___ mg Glucagon 2019-0 No 1 mg, Memoria 3-31 Route: IM, l 09:47: Drug form: [place] 00 PDR/INJ, PRN, Dosing Weight 75.994, kg, PRN Blood Glucose Results, Start date: 01/22/19 4:47:00 CDT, Duration: 30 day, Stop date: 02/21/19 4:46:00 CDT Dextrose No 12.5 gm, Memor ia 50% Syringe 01-22 25 mL, l 09:47: Route: Yonis 00 IVP, Drug Form: INJ, Dosing Weight 75.994, kg, PRN, PRN Blood Glucose Results, Start date: 01/22/19 4:47:00 CDT, Duration: 30 day, Stop date: 02/21/19 4:46:00 CDT Zofran No Notes: Memoria 3-31 (Same as: l 08:56: Zofran) Yonis 00 MEDICATION WASTE Product Size: 4 mg Product Wasted: ___ mg NS (Bolus) No 1,000 mL, Me moria IV - 1,000 l 08:52: ml/hr, Yonis 00 Infuse Over: 1 hr, Route: IV, 1,000, Drug form: INJ, ONCE, Priority: STAT, Dosing Weight 75.994 kg, Start date: 01/22/19 3:52:00 CDT, Stop date: 01/22/19 3:52:00 CDT Visipaque No Notes: Memori a 320 mg/mL - (Same as: l injectable 06:42: Visipaque) H [...] Memoria 01-22 (Same as: l 04:52: Zofran) Yonis 00 MEDICATION WASTE Product Size: 4 mg Product Wasted: ___ mg Saline No Notes: Memoria Flush 0.9% 01-22 Same as: l 04:52: BD Yonis Posiflush Sterile NS (Bolus) No 1,000 mL, Me moria IV 01-22 1,000 l 04:51: ml/hr, [place] 00 Infuse Over: 1 hr, Route: IV, 1,000, Drug form: INJ, ONCE, Priority: STAT, Dosing Weight 75.994 kg, Start date: 01/21/19 23:51:00 CDT, Stop date: 01/21/19 23:51:00 CDT Vital Signs Vital Name Observation Time Observation Value Comments Source Temperature Oral (F) 2019-01-28 01:16:00 98.6 F [facility] Yonis Systolic (mm Hg) 2019-01-28 01:16:00 Estrada rial Yonis Diastolic (mm Hg) 2019-01-28 01:16:00 Mem orial Yonis Heart Rate 2019-01-28 01:16:00 [facility] [place] Respitory Rate 2019-01-28 01:16:00 Memori al Yonis Systolic (mm Hg) 2019-01-27 20:42:00 Estrada rial Yonis Diastolic (mm Hg) 2019-01-27 20:42:00 Mem orial Yonis Heart Rate 2019-01-27 20:42:00 [facility] [place] Respitory Rate 2019-01-27 20:42:00 Memori al Yonis Temperature Oral (F) 2019-01-27 20:42:00 98.5 F [facility] Y[place] Systolic (mm Hg) 2019-01-27 17:00:00 Estrada rial [place] Diastolic (mm Hg) 2019-01-27 17:00:00 Mem orial [place] Temperature Oral (F) 2019-01-27 17:00:00 98.5 F [facility] Yon[place] Heart Rate 2019-01-27 17:00:00 [facility] [place] Respitory Rate 2019-01-27 17:00:00 Wicho Gale Height 2019-01-22 14:35:00 157.48 cm Jeanne Somers BMI Calculated 2019-01-22 14:35:00 Wicho Gale Weight 2019-01-22 14:35:00 Jeanne Somers Weight 2019-01-22 04:34:00 [facility] Yonis Procedures This patient has no known procedures. Encounters Start End Encounter Admission Attending Care Care Encounter Source Date/Time Date/Time Type Type Clinicians Facility Department ID 2019-01-22 Inpatient E [facility] MED [id number] 04:39:00 2019-01-21 2019-01-27 Outpatient Dav [facility] [id number] 23:33:00 23:40:00 Ed 00 2018-02-21 2018-02-20 Inpatient E LOS, [facility] MED [id number] [address] 14:48:00 13:18:00 [facility] Results Test Description Test Time [...] = Expiration Dt) 10-24-2020 N Thyroid Stimulating Gilwkii6926-33-45 08:35:16 Test Item Value Reference Range Interpretation Comments TSH (test code = TSH) 1.170 mIU/mL 0.270-4.200 Lipid Cuzao9617-78-26 08:21:19 Test Item Value Reference Range Interpretation Comments Cholesterol Total 254 mg/dL 0-200 H RISK OF HE ART (test code = DISEASEPublishe d by Cholesterol Total) [employer] Cathie lyte Optimal Borderl ine [...] calculation is LDL/HDL Ratio=L DL Calc/HDL Chol HJAXPMURFOSV5031-93-28 08:24:008.6[facility] QriwkhtTXVUQCOWZWTI3542-97-64 08:24:85232Ncdgekeg NbmvlrtHFQOKKXAYGKI1794-54-16 08:24:0027[facility] [place] NLNODYSRWMOY0071-34-96 08:24:12494Wofepsoa IotilzrWDJGXVYZZIYN7480-59-77 08:24:003.6[facility] OleqgddTHDCQCEGIVXZ5134-52-10 08:24:000.70[facility] Y[facility] ZXWVEOSXHUKE6680-57-37 08:24:008.4[facility] CstgrkbAFRUCXWLBOCH8897-52-79 08:24:19354Qgprjvvs IcdikoeGUBAIASXYOGH5911-05-79 08:24:0086[facility] Yonis URTOHYPRDMWH0316-81-67 08:24:006[facility] LblpkcxPKGOYASOWF5896-34-10 08:24:00 11.6[facility] MnjizfeMNCJKJKPWM0740-84-60 08:24:003.78[facility] HermannHEMATOLOGY 2019-01-26 08:24:0013.3[facility] VolgwzyDGVBSUJWPQ3739-87-63 08:24:0034.0[facility] QqzixcjRJWIBGIVXY1636-37-03 08:24:006.3[facility] CzjmcirMGTGGQSJUL3580-94-68 08:24:00 Test Item Value Reference Range Interpretation Comments MCH (test code = MCH) 30.7 pg 27.0-31.0 [facility] FqwqiajQBLMZMLATS5864-33-54 08:24:0090.3[facility] HermannHEMATOLOGY 2019-01-26 08:24:0034.2[facility] ZlmdkhaZRTWTYLVRK9367-04-08 08:24:17874Lnxowxef PacpntfUHBCTDYIUL0652-81-20 08:24:007.5[facility] HermannCHEM RRNVH0887-36-13 09:14:42221Mbbkoetq HermannCHEM FVLLW9205-91-07 09:14:008.5[facility] HermannCHEM EWDTH9690-99-58 09:14:0013.3[facility] HermannCHEM NCMVE8243-35-22 09:14:0024 [facility] HermannCHEM HQIHL7996-77-56 09:14:17823Kcowgddi HermannCHEM PANEL 2019-01-25 09:14:0081[facility] HermannCHEM FGTXE9422-36-03 09:14:002[facility] HermannCHEM UXOGP9892-09-66 09:14:003.3[facility] HermannCHEM YOQIQ2384-42-26 09:14:000.60[facility] HermannCHEM QIORT4063-03-06 09:14:69078Tbakjmfb Yonis MOLECULAR HWUEUXIGNQ1582-45-68 16:22:00Negative (01/23/19 11:22 AM)[facility] HermannCHEM QOYVM8301-20-14 15:42:002.76[facility] HermannCHEM XYMZL3766-83-87 12:32:000.9[facility] HermannCHEM FCOAM2155-71-76 10:50:002.0[facility] HermannCHEM HUJVV5119-07-45 10:50:93529Lqyrcseo HermannCHEM NKSDO6749-98-72 10:50:0023 [facility] HermannCHEM MHINN5739-21-26 10:50:97724Snerrzbo HermannCHEM PANEL 2019-01-23 10:50:003.1[facility] HermannCHEM KIXBJ4078-20-45 10:50:77265Webwgtoy HermannCHEM UMHFG0468-36-69 10:50:005[facility] HermannCHEM QEWGV4683-63-19 10:50:000.50[facility] HermannCHEM YOGMR4544-46-53 10:50:007.8[facility] HermannCHEM VCDVB9785-56-34 10:50:0083[facility] HermannCHEM JPNEG3529-73-24 10:50:0010.1 [facility] YvwzhoyAEFUBHJBAD5077-06-70 10:50:000.2[facility] HermannHEMATOLOGY 2019-01-23 10:50:000.8[facility] ZsdfbvgRIHPVDFWMR7924-51-32 10:50:005.5[facility] IorviiiMDORKNFWFP8761-05-43 10:50:002.2[facility] WbttlajJJWBRFGOOP2085-56-29 10:50:000.1[facility] LvjhywhGQESTREEZI5861-77-23 10:50:0063.6[facility] Yonis REMZVDQNXW9700-25-50 10:50:008.9[facility] EdcfpdwYBDYLTMCVR2193-11-08 10:50:002.3 [facility] OwkydhvAIGFGOMXEO5306-23-70 10:50:00Normal (01/23/19 5:50 AM)[facility] SmztoesRFZKNCOLHG5253-01-10 10:50:00Normal (01/23/19 5:50 AM)[facility] [place] FTIRBELVUK9742-26-94 10:50:0025.1[facility] VpyrlleLLQJFEZJWR0628-43-60 10:50:00 13.1[facility] PpedmjcBQKYPDXBIW7290-55-35 10:50:52409Agvgyqpb HermannHEMATOLOGY 2019-01-23 10:50:007.7[facility] OgzqooxQNGVEMBVKZ3516-15-53 10:50:008.6[facility] EknjfeoJKWNEUVBAB3648-02-59 10:50:0010.0[facility] MnucqdyQZGTMHLJAL0864-21-35 10:50:0034.6[facility] UcyqdumHCKETYZWHD8262-36-26 10:50:0028.7[facility] Yonis YEIOKCFCCW2557-87-02 10:50:0087.8[facility] BqcutmsPXEQVLPLFV1303-69-19 10:50:00 Test Item Value Reference Range Interpretation Comments MCH (test code = MCH) 30.4 pg 27.0-31.0 [facility] TimsoywDBHJUQPOCZ4042-03-05 10:50:003.27[facility] HermannCHEM PANEL 2019-01-22 11:32:002.4[facility] HermannCHEM KLISU5728-21-64 09:04:003.0[facility] HermannURINE AND VFURR3686-29-53 07:14:00 Test Item Value Reference Range Interpretation Comments UA Spec Grav (test code = UA Spec 1.014 1 Grav) [facility]ann[facility] AND PHHLW3491-74-03 07:14:00 Test Item Value Reference Range Interpretation Comments UA pH (test code = UA pH) 6.0 1 5.0-8.0 [facility] AND MQVGN8374-07-90 07:14:00Negative (01/22/19 2:14 AM) [facility] LBDRD4089-27-94 07:14:00Negative *NA*(01/22/19 2:14 AM) [facility] KFGSR3261-98-00 07:14:00Negative *NA*(01/22/19 2:14 AM) [facility] KWGOW4769-67-71 07:14:00Negative *NA*(01/22/19 2:14 AM) [facility] ITHSU2755-53-46 07:14:00Negative (01/22/19 2:14 AM) [facility] YXLKH7975-94-34 07:14:00Negative (01/22/19 2:14 AM) [facility] LNYJX6959-15-95 07:14:00Negative (01/22/19 2:14 AM) [facility] HCXGY6566-68-76 07:14:00<1[facility] AND VDVUE3100-61-90 07:14:0025[facility]ann[facility] AND VMQBG3896-21-38 07:14:002 [facility] AND XZLUK9713-08-47 07:14:00Light Yellow *NA*(01/22/19 2:14 AM)[facility] AND HDGHO9450-70-23 07:14:00Clear (01/22/19 2:14 AM) [facility] NqgejauCPLWZ5351-00-76 05:16:000.90[facility] HermannBLOOD BANK RESULTS 2019-01-22 05:01:00Negative (01/22/19 12:01 AM)[facility] HermannCARDIAC ENZYMES 2019-01-22 05:01:00<0.02[facility] HermannCARDIAC LYGLRNX5671-50-71 05:01:0049 [facility] HermannCHEM DZLUZ9035-73-33 05:01:000.6[facility] HermannCHEM PANEL 2019-01-22 05:01:45271Cwnwsoto HermannCHEM CRGHS9703-89-76 05:01:004.0[facility] HermannCHEM CYEZB9074-77-80 05:01:0017[facility] HermannCHEM LNXNJ0511-34-16 05:01:0025[facility] HermannCHEM QAZOQ7922-08-31 05:01:008.1[facility] HermannCHEM GEWQK3102-10-97 05:01:00 Test Item Value Reference Range Interpretation Comments B/C Ratio (test code = B/C Ratio) 20 1 6-25 [facility] HermannCHEM NOIUK0121-86-06 05:01:00 Test Item Value Reference Range Interpretation Comments A/G Ratio (test code = A/G Ratio) 1.0 1 0.7-1.6 [facility]annCHEM SJJJJ2868-66-84 05:01:004.1[facility] HermannCHEM PANEL 2019-01-22 05:01:006.90[facility] AnfismoHGOTOIVWALCQC1009-63-29 05:01:00Negative *NA*(01/22/19 12:01 AM)[facility] PjqftekJKIXCBPNWM7316-88-13 05:01:000.1[facility] VufpfqhIEAPQMLFEW1278-20-64 05:01:000.7[facility] GjycawpHUOSTFWDGT6103-72-35 05:01:000.0[facility] IvzmzyeZSSMJBQRDW0879-44-52 05:01:000.0[facility] Yonis FQHUSZMURP9511-78-03 05:01:000.9[facility] HtvbbxkQUSJWFNOFC7779-34-58 05:01:008.6 [facility] YzdmjuuZSARKXERYR7426-89-90 05:01:000.6[facility] HermannHEMATOLOGY 2019-01-22 05:01:0086.5[facility] FansiouNABRWWDOUQ8469-06-54 05:01:005.7[facility] SsuogceJAFPWTTXJA1541-96-57 05:01:006.9[facility] UxxqbbhDBRWUSLNPU6555-17-35 05:01:009.9[facility] SjiqtsuYYUMOXXQCC2761-56-39 05:01:0032.8[facility] Yonis GKAJDLHJWY2365-66-61 05:01:0013.6[facility] KsciwurDFUWWOKYYM4574-49-22 05:01:00 443[facility] MaswvjoYQMMZFSADS4439-82-24 05:01:007.3[facility] [place] 2019-01-22 05:01:0014.0[facility] BfrncdcCRYIRVUVUR8396-74-25 05:01:004.85[facility] WgwizfeRMZGJKAWFD2543-68-81 05:01:0042.7[facility] GnwbbgzMRRIBADMYM2070-19-50 05:01:00 Test Item Value Reference Range Interpretation Comments MCH (test code = MCH) 29.0 pg 27.0-31.0 [facility]edQSCDJBFYBL9944-44-54 05:01:0088.2[facility] 2019-01-22 05:01:00 Test Item Value Reference Range Interpretation Comments INR (test code = INR) 0.96 1 0.85-1.17 [facility]dvuyxwLFGLLQZUPW0215-92-32 05:01:00 Test Item Value Reference Range Interpretation Comments PT (test code = PT) 12.6 s 12.0-14.7 [facility] RegionXhtzxceEKWODWAPLW1168-49-04 05:01:00 Test Item Value Reference Range Interpretation Comments PTT (test code = PTT) 25.9 s 22.9-35.8 [facility]XT2I0703-06-93 14:36:00 Test Item Value Reference Range Interpretation [...] 0.00-0.01 N code = ETOHU) Comprehensive Metabolic Vvrve9962-02-73 14:36:00 Test Item Value Reference Range Interpretation [...] the National Kidney Foundation,http ://nkd ep.nih.gov Urinalysis Vppbgutv1859-03-55 14:32:00 Test Item Value Reference Range Interpretation Comments Color (test code = COLOR) Yellow Yellow,Straw,Pl N yellow Clarity (test code = Clear Clear N CLAR) Specific [place] (test 1.024 1.001-1.035 N code = SPGR) [...] code = Few /HPF BACT) CBC with Gfyimmwsdavv5412-17-91 14:21:00 Test Item Value Reference Range Interpretation [...] code = ALYMPH) 3.0 K/cumm 0.5-4.6 N [place] Abs (test code = AMONO) 0.5 K/cumm 0.0-1.2 N Eos Abs (test code = AEOS) 0.19 K/cumm 0.00-0.74 N Baso Abs (test code = ABASO) 0.1 K/cumm 0.00-0.21 N
[2020-04-18 13:16] LABS: Albumin 3.8 g/dL (3.4-5.0); Bilirubin Total 0.3 mg/dL (0.2-1.0); Potassium 4.1 mmol/L (3.5-5.1); Protein, Total 7.5 g/dL (6.4-8.2)
[2020-04-18] MEDS ORDERED: ACETAMINOPHEN 325 MG TABLET PO PRN (13:16)
[2020-04-18] MEDS ORDERED: CARIPRAZINE HCL 1.5 MG PO ONE (14:30)
[2020-04-18 15:11] LABS: Barbiturates NEGATIVE (NEGATIVE); Benzodiazepines POSITIVE (NEGATIVE); Cocaine NEGATIVE (NEGATIVE); METHAMPHETAM NEGATIVE (NEGATIVE); Methadone NEGATIVE (NEGATIVE); Opiates NEGATIVE (NEGATIVE); Phencyclidine NEGATIVE (NEGATIVE); THC Cannibis NEGATIVE (NEGATIVE)
[2020-04-18] MEDS: ZIPRASIDONE 20 MG CAP PO SCH (20:33)
[2020-04-18] MEDS: chlordiazePOXIDE HCl 25 MG CAP PO PRN (20:47)
[2020-04-18] MEDS ORDERED: chlordiazePOXIDE HCl 25 MG CAP PO SCH (21:00)
[2020-04-18] MEDS ORDERED: DIVALPROEX DR 500MG TAB PO SCH (21:00)
[2020-04-18 22:50] VITALS: O2SAT 96
[2020-04-19 05:38] LABS: Absolute Lymphocytes (CBC) 2.8 K/uL (0.7-4.9); Basophils % 0.7 % (0-1.3); Lymphocytes % 45.5 % (15.3-44.8); MPV 7.4 fL (7.6-11.3); RBC Red Blood Cell Count 4.19 M/uL (3.86-4.86)
[2020-04-19 05:51] LABS: ALT/SGPT 21 U/L (12-78); AST/SGOT 20 U/L (15-37); Albumin 3.1 g/dL (3.4-5.0); Alkaline Phosphatase 82 U/L (45-117); BUN Blood Urea Nitrogen 13 mg/dL (7-18); Bicarbonate 26 mmol/L (21-32); Bilirubin Total 0.3 mg/dL (0.2-1.0); Glucose Level 89 mg/dL (74-106); Potassium 3.9 mmol/L (3.5-5.1); Protein, Total 6.4 g/dL (6.4-8.2); Sodium Level 139 mmol/L (136-145)
[2020-04-19 08:02] LABS: Blood Morphology Comment NOT SEEN (NOT SEEN); Platelet Estimate ADEQ
[2020-04-19] MEDS: ZIPRASIDONE 20 MG CAP PO SCH (09:00)
[2020-04-19] MEDS ORDERED: CARIPRAZINE HCL 1.5 MG PO SCH (09:00)
[2020-04-19] MEDS ORDERED: DIVALPROEX DR 250 MG TAB PO SCH (09:00)
[2020-04-19] MEDS: chlordiazePOXIDE HCl 25 MG CAP PO PRN (09:06)
--- NOTE | 2020-04-19 11:22 | P.DS ---
Admission Date: 04/18/20 Discharge Date: 04/19/20 Primary Care Provider: Stanley Disposition: TRANSFR TO OTHER-PSY/CD/REHAB Discharge Condition: FAIR Reason for Admission: bipolar disorder, maniac episode - Problems (1) Bipolar disorder (manic depression) Current Visit: Yes Status: Acute Qualifiers: Active/Remission status: currently active Current bipolar episode type: manic Current episode severity: severe Psychotic features: with psychotic features Qualified Code(s): F31.2 - Bipolar disorder, current episode manic severe with psychotic features (2) Benzodiazepine abuse, continuous Current Visit: Yes Status: Chronic Brief History of Present Illness: Patient is a troubled young woman who came to the office today. The patient was very manic she had a bipolar spectrum score of 19. She had very much pressured speech and flight of ideas She had been calling the office for the past 2 days asking for adderall. She states she has been getting it since she was a teenager. The patient has a purchasing supervisor aware overdose score of 350 She has not had adderall since January. She has gone to our ER 6 times this past month. Usually gets norco and benzodiazepams and is sent home for anxiety. The patient states that her mother also uses benzodiazepams. She has been to Dr. Sellers's office. He started her on librium and hydroxine to get her off the benzodiazepam Have called Dr. Liu an he has been getting calls from the patient asking for adhd medications. She has asked for several different types of adhd and benzodiazepams. After discussion with Dr. Liu will admit the patient. She does not seem safe to be on her own. She seems to be harvesting the pills she was given in the past. The patient is not drug seeking. She is trying to control her symptoms with the meds she has been given in the past. However this can be dangerous. I drove the patient from the office to the hospital as she does not have transportation. Mrs Julissa Krishnan SHEETER MACHINE OPERATOR acompanied us as an SHEETER MACHINE OPERATOR. Hospital Course: Patient came in with a manic episode with psychotic features. She was seen by Dr Ponce. Who started her on geodon and depakote. This morning she seems calmer. However when conversing with her she does exhibit unorganized thinking Bringings up several doctors and people from her past. She states she cannot take depokote and geodon and will not. She has been getting adhd meds and benzodiazepams from multiple sources. She is not safe to be discharged. I do not believe we are equipped to take of her for the duration she needs to be safe. Will transfer her to an inpatient psyche facility. Will Have discussed with Walter in [facility]. Both laura and Dr Sellers can follow up with her after she is discharged. Vital Signs/Physical Exam: Temp Pulse Resp BP Pulse Ox 97.6 F 82 16 108/73 99 04/19/20 08:00 04/19/20 08:00 04/19/20 08:00 04/19/20 08:00 04/19/20 08:00 General: Alert, In no apparent distress HEENT: Atraumatic, PERRLA, EOMI Neck: Supple, JVD not distended Respiratory: Clear to auscultation bilaterally, Normal air movement Cardiovascular: Regular rate/rhythm, Normal S1 S2 Gastrointestinal: Normal bowel sounds, No tenderness Musculoskeletal: No tenderness Integumentary: No rashes Neurological: Normal speech, Normal tone, Normal affect Lymphatics: No axilla or inguinal lymphadenopathy Laboratory Data at Discharge: WBC 6.1 K/uL (4.3-10.9) D 04/19/20 04:09 Hgb 12.0 g/dL (12.0-15.0) 04/19/20 04:09 Hct 36.0 % (36.0-45.0) 04/19/20 04:09 Plt Count 370 K/uL (152-406) 04/19/20 04:09 Sodium 139 mmol/L (136-145) 04/19/20 04:09 Potassium 3.9 mmol/L (3.5-5.1) 04/19/20 04:09 BUN 13 mg/dL (7-18) 04/19/20 04:09 Creatinine 0.65 mg/dL (0.55-1.3) 04/19/20 04:09 Glucose 89 mg/dL (74-106) 04/19/20 04:09 Total Bilirubin 0.3 mg/dL (0.2-1.0) 04/19/20 04:09 AST 20 U/L (15-37) 04/19/20 04:09 ALT 21 U/L (12-78) 04/19/20 04:09 Alkaline Phosphatase 82 U/L (45-117) 04/19/20 04:09 Triglycerides 155 mg/dL (<150) H 04/19/20 04:09 Cholesterol 213 mg/dL (<200) H 04/19/20 04:09 HDL Cholesterol 88 mg/dL (40-60) H 04/19/20 04:09 Cholesterol/HDL Ratio 2.42 04/19/20 04:09 Home Medications: Atomoxetine HCl 1 tab PO DAILY 04/18/20 Cariprazine HCl [Vraylar] 1.5 mg PO DAILY 04/18/20 Fluoxetine HCl [Prozac] 1 tab PO DAILY 04/18/20 Lurasidone HCl [Latuda] 1 tab PO DAILY 04/18/20 hydrOXYzine HCL [Atarax] 1 tab PO TID PRN 04/18/20 Patient Discharge Instructions: patient should be on depakote 500mg po qhs, 250mg qam and geodon 40mg po bid, as well as vylar 3mg po qday Diet: Regular Activity: Bedrest
[2020-04-19 12:05] VITALS: BP 110/71; TEMP 98.2
--- NOTE | 2020-04-22 07:08 | CON ---
Date of Consultation: 04/18/2020 Chief Complaint: Manic episode. History Of Present Illness: Ms. Tiffany Quinn is a 49-year-old female with psychiatric history significant for bipolar disorder, ADHD, anxiety disorder, benzodiazepine use disorder in remission. Patient was admitted by her PCP due a manic episode. Per chart review for the past couple of days patient has presented to [facility] ED multiple times this month requesting benzodiazepine for severe anxiety. She has also called Psychiatrist multiple times requesting Adderall. She presented to her PCP earlier today requesting her PCP prescribe her Adderall. During the visit with her PCP she was observed to be manic hence her subsequent admission. On interview patient was observed to have elevated mood, disorganized thought process and delusional, she however denies auditory and visual hallucination. She says she has not slept for days. Patient states she has met [employer]ali Spring Upholsterer who is a witch many years ago and was gifted with sauceda during the meeting. She denies suicidal or homicidal ideation and denies head trauma or loss of consciousness. Objective: Vital Signs: Blood pressure is 150/67, pulse rate of 73, temperature is 97.5, respiratory rate is 18. Mental Status Examination: Patient is a well-nourished female, appropriately dressed, lying in bed, not in any obvious acute distress. She is alert and oriented to person and place but not to time. Thought process is mostly disorganized with evidence of flight of ideas. Thought content, no suicidal or homicidal ideation. No auditory or visual hallucination. Insight and impulse control are limited to poor. Language skills fair. Diagnosis: Bipolar disorder 1 disorder current episode severe, manic Schizoaffective disorder Bipolar type Attention deficit hyperactivity disorder per history. Recommendations: Start the patient on Geodon 40 mg p.o. b.i.d. for mood stabilization. Spent 45 minutes reviewing patient's chart and discussing care with treatment team. JANET/YOUNG Voice ID: [id number] Report ID: [id number] IRENE
== END 2020-04-19 14:02 ==
LOC: 2ND 11:17
PROVIDERS: ADMIT Internal Medicine; ATTEND Internal Medicine
DX: F31.13 Bipolar disorder, current episode manic without psychotic features, severe (principal); F25.0 Schizoaffective disorder, bipolar type; F13.10 Sedative, hypnotic or anxiolytic abuse, uncomplicated; F90.9 Attention-deficit hyperactivity disorder, unspecified type; F41.9 Anxiety disorder, unspecified; Z11.59 Encounter for screening for other viral diseases; Z79.899 Other long term (current) drug therapy; Z87.891 Personal history of nicotine dependence
CPT/HCPCS: 85025 ×2; 36415; 80061; 80307 ×8; 80053 ×2; U0002; G0379; G0378 ×3

== ENCOUNTER 2021-03-28 09:04 | Emergency (ER) | payer OTHER ==
--- OUTSIDE RECORDS SUMMARY | 2021-03-28 09:09 | XMS REPORT | Continuity of Care Document ---
:1970 Author Organization [facility] t Address [address] [place] [address] Care Team Providers Name Role Phone UNKNOWN Primary Care Physician Unavailable Singer ESCALANTE Attending Clinician Chente Attending Clinician Unavailable Chente Attending Clinician Unavailable Dav Attending Clinician AFLIV Attending Clinician Unavailable Chente Admitting Clinician Unavailable Dav Admitting Clinician AFUWAPE Admitting Clinician Unavailable Problems Condition Condition Condition Status Onset Resolution Last Treating Co mments Source Name Details Category Date Date Treatment Clinician Date INFECTIOUS Diagnosis Active 2019-02-06 Memoria GASTROENTE 01-21 08:58:00 l RITIS AND 00:00: Arma COLITIS INFECTIOUS 00 GASTROENTE RITIS AND COLITIS Active 01/21/2019 [facility] LOW PB Diagnosis Active 2019-01-22 Mem oria 3 01:52:00 l LOW PB 00:00: Yonis 00 Active 01/21/2019 [facility] INFECTIOUS Diagnosis Active 2019-02-06 Memoria GASTROENTE 08:58:00 l RITIS AND Yonis COLITIS, INFECTIOUS GASTROENTE RITIS AND COLITIS, Active [facility] Allergies, Adverse Reactions, Alerts Allergy Allergy Status Severity Reaction(s) Onset Inactive Treating Comm ents Source Name Type Date Date Clinician Jm Oneal Active Wicho Somers Social History Smoking Status Start Date Stop Date Source Social History 2019-01-22 05:00:12 Jeanne [facility] Medications Ordered Filled Start Stop Current Ordering Indication Dosage Frequency Signature Comments Components Source Medication Medication Date Date Medication? Clinician (SIG) Name Name Metronidazo Yes 500 mg = 1 Memoria le 500 MG 4-04 tab, PO, l Oral Tablet 17:35: ABXQ8H, X H ermann 00 4 day, # 12 tab, 0 Refill(s) ciprofloxac Yes 500 mg = 1 Memoria in 500 mg 4-04 tab, PO, l oral tablet 17:35: SOSR18C, X Arma 00 4 day, # 8 tab, 0 Refill(s) Ondansetron Yes 4 mg = 1 Me moria 4 MG Oral 4-04 tab, PO, l Tablet 17:35: Q6H, PRN Yonis [Zofran] 00 Nausea/Vom iting, # 20 tab, 0 Refill(s) tramadol Yes 50 mg = 1 Estrada doni hydrochlori 4-04 tab, PO, l de 50 MG 17:35: Q6H, PRN Deloris nn Oral Tablet 00 Pain Score 1-3, X 5 day, # 20 tab, 0 Refill(s) Potassium No Notes: Memori [...] s with feeding tube less than 14 [place] (Dobhoff, J-tube etc) and pediatric and patients. Strattera No 0.5 mg/kg, Me moria 01-24 Route: PO, l 14:00: QAM, Arma 00 Dosing Weight 75, kg, Start date: 01/24/19 9:00:00 CDT, Duration: 30 day, Stop date: 02/22/19 9:00:00 CDT lithium No Notes: Do Memor ia 01-24 not crush l 02:00: or chew. (Same as: Ricardo-C Homero) Risperdal No Notes: Memori a 01-23 (Same as: l 22:00: Risperdal) Arma 00 Strattera 2019-0 No 1 mg, Memoria 01-23 Route: PO, l 22:00: QPM, Arma 00 Dosing Weight 75, kg, Start date: 01/23/19 17:00:00 CDT, Duration: 30 day, Stop date: 02/21/19 17:00:00 CDT normal No 1,000 mL, Memori a saline 0.9% 01-23 Rate: 100 l IV 1,000 mL 19:18: ml/hr, Infuse over: 10 hr, Route: IV, Dosing Weight 75 kg, Total Volume: 1,000, Start date: 01/23/19 14:18:00 CDT, Duration: 30 day, Stop date: 02/22/19 14:17:00 CDT, 1.84, m2 Clonazepam No Notes: Memor ia 01-23 (Same As: l 18:00: KlonoPIN) Flagyl No Notes: Memoria 01-23 (Same as: l 15:00: Flagyl) Take with food/ avoid alcohol Cipro No Notes: May Memori a 01-23 interfere l 15:00: w/enteral feedings - Take 1 hr before or 2 hrs after antacids, dairy pdt & minerals. On empty stomach. tramadol No 50 mg = 1 Estrada doni hydrochlori 01-23 tab, PO, l de 50 MG 14:20: Q6H, PRN Deloris nn Oral Tablet 00 Pain Score 1-3, 0 Refill(s) potassium Yes 40 mEq, Memor ia chloride 20 01-23 PO, ONCE, l mEq oral 14:20: 0 Yonis tablet, 00 Refill(s) extended release Metronidazo No 500 mg, Mem oria le 500 MG 01 PO, l Oral Tablet 14:20: ABXQ8H, 0 H ermann [Flagyl] 00 Refill(s) Ciprofloxac No 500 mg, Mem oria in 500 MG 01-23 PO, l Oral Tablet 14:20: [id number], 0 Arma [Cipro] 00 Refill(s) Potassium No Notes: Memori a Chloride 01-23 (Same as: l 14:17: K-Dur 20) Arma 00 "Do Not Crush" Give with food and full glass of water For patients unable to swallow tablet, dissolve in one half glass of water. Allow about 2 minutes for the tablets to disintegra te. Stir before giving to prepare slurry and administer . Please exclude Patient s with feeding tube less than 14 [place] (Dobhoff, J-tube etc) and pediatric and patients. Pepcid 2019 No Notes: Memoria 3-31 (Same as: l [...] mg Tramadol No Notes: Not Mem oria 3-31 to exceed l 15:03: 400mg/day. (Same As: Ultram) normal No 1,000 mL, Memori a saline 0.9% 01-22 Rate: 150 l IV 1,000 mL 09:48: ml/hr, Infuse over: 6.7 hr, Route: IV, Dosing Weight 75.994 kg, Total Volume: 1,000, Start date: 01/22/19 4:48:00 CDT, Duration: 30 day, Stop date: 02/21/19 4:47:00 CDT Ondansetron No Notes: Estrada doni 01-22 (Same as: l 09:47: Zofran) Yonis MEDICATION WASTE Product Size: 4 mg Product Wasted: ___ mg Glucagon No 1 mg, Memoria 01-22 Route: IM, l 09:47: Drug form: Yonis 00 PDR/INJ, PRN, Dosing Weight 75.994, kg, PRN Blood Glucose Results, Start date: 01/22/19 4:47:00 CDT, Duration: 30 day, Stop date: 02/21/19 4:46:00 CDT Dextrose No 12.5 gm, Memor ia 50% Syringe 01-22 25 mL, l 09:47: Route: IVP, Drug Form: INJ, Dosing Weight 75.994, kg, PRN, PRN Blood Glucose Results, Start date: 01/22/19 4:47:00 CDT, Duration: 30 day, Stop date: 02/21/19 4:46:00 CDT Zofran No Notes: Memoria 31 (Same as: l 08:56: Zofran) Arma MEDICATION WASTE Product Size: 4 mg Product Wasted: ___ mg NS (Bolus) No 1,000 mL, Me moria IV 01-22 1,000 l 08:52: ml/hr, Yonis 00 Infuse Over: 1 hr, Route: IV, 1,000, Drug form: INJ, ONCE, Priority: STAT, Dosing Weight 75.994 kg, Start date: 01/22/19 3:52:00 CDT, Stop date: 01/22/19 3:52:00 CDT Visipaque No Notes: Memori a 320 mg/mL 01-22 (Same as: l injectable 06:42: Visipaque) H ermann solution . WASTE: F/P - Black; E - Municipal Trash Bin Zosyn No Notes: Memoria 3-31 (Same as: l 06:10: Zosyn) Dosing based on Piperacill in component MEDICATION WASTE Product Size: 3375 mg Product Wasted: ___ mg NS (Bolus) No 1,000 mL, Me moria IV - 1,000 l 05:44: ml/hr, Yonis 00 Infuse Over: 1 hr, Route: IV, 1,000, Drug form: INJ, ONCE, Priority: STAT, Dosing Weight 75.994 kg, Start date: 01/22/19 0:44:00 CDT, Stop date: 01/22/19 0:44:00 CDT Zofran No Notes: Memoria 01-22 (Same as: l 04:52: Zofran) Arma 00 MEDICATION WASTE Product Size: 4 mg Product Wasted: ___ mg Saline No Notes: Memoria Flush 0.9% 01-22 Same as: l 04:52: BD Yonis Posiflush Sterile NS (Bolus) No 1,000 mL, Me moria IV 01-22 1,000 l 04:51: ml/hr, Arma 00 Infuse Over: 1 hr, Route: IV, 1,000, Drug form: INJ, ONCE, Priority: STAT, Dosing Weight 75.994 kg, Start date: 01/21/19 23:51:00 CDT, Stop date: 01/21/19 23:51:00 CDT Vital Signs Vital Name Observation Time Observation Value Comments Source Temperature Oral (F) 2019-01-28 01:16:00 98.6 F [facility] Arma Systolic (mm Hg) 2019-01-28 01:16:00 Estrada rial Yonis Diastolic (mm Hg) 2019-01-28 01:16:00 Mem orial Yonis Heart Rate 2019-01-28 01:16:00 [facility] Arma Respitory Rate 2019-01-28 01:16:00 Memori al Arma Systolic (mm Hg) 2019-01-27 20:42:00 Estrada rial Yonis Diastolic (mm Hg) 2019-01-27 20:42:00 Mem orial Yonis Heart Rate 2019-01-27 20:42:00 [facility] Arma Respitory Rate 2019-01-27 20:42:00 Memori al Arma Temperature Oral (F) 2019-01-27 20:42:00 98.5 F [facility] Yonis Systolic (mm Hg) 2019-01-27 17:00:00 Estrada rial Yonis Diastolic (mm Hg) 2019-01-27 17:00:00 Beny Somers Temperature Oral (F) 2019-01-27 17:00:00 98.5 F Jeanne Somers Heart Rate 2019-01-27 17:00:00 Jeanne Somers Respitory Rate 2019-01-27 17:00:00 Wicho Gale Height 2019-01-22 14:35:00 157.48 cm Jeanne Somers BMI Calculated 2019-01-22 14:35:00 Wicho Gale Weight 2019-01-22 14:35:00 [facility] Arma Weight 2019-01-22 04:34:00 [facility] This patient has no known procedures. Encounters Start End Encounter Admission Attending Care Care Encounter Source Date/Time Date/Time Type Type Clinicians Facility Department ID 2019-01-22 Inpatient E [facility] [address] 04:39:00 2020-09-30 2020-09-30 Emergency [facility] [id number] 07:22:00 08:18:00 Gio Jimenez [id number] [place] [id number] [place] [id number] 2020-03-04 2020-03-14 Inpatient 3 Chente, [facility] PSY [id number] 15:38:00 15:25:00 [facility] 2019-01-21 2019-01-27 Outpatient Dav [facility] [id number] 23:33:00 23:40:00 Ed 00 2018-02-21 2018-02-20 Inpatient E [facility] MED [id number] [id number] 14:48:00 13:18:00 [facility] Results Test Description Test Time Test Comments [...] = Expiration Dt) 10-24-2020 N Thyroid Stimulating Wkktxwm5358-84-89 08:35:16 Test Item Value Reference Range Interpretation Comments TSH (test code = TSH) 1.170 mIU/mL 0.270-4.200 Lipid Evurz9430-10-79 08:21:19 Test Item Value Reference Range Interpretation Comments Cholesterol Total 254 mg/dL 0-200 H RISK OF HE ART (test code = DISEASEPublishe d by Cholesterol Total) [place] [employer] Cathie lyte Optimal Borderl ine [...] calculation is LDL/HDL Ratio=L DL Calc/HDL Chol NCCOSHWETINB1889-23-33 08:24:008.6[facility] PpbwhtbQDJKMCDCEGRH1155-28-46 08:24:30617Hmtbasfu HqenkmnSHYEHIDICWQS9591-76-14 08:24:0027[facility] Yonis BPBTVAJZBPWG6251-39-18 08:24:95552Fylpqknl UliyfpbPPNHQQDWMYGB3467-26-61 08:24:003.6[facility] CvsrhnkSEZUNXRMLPZR9003-36-27 08:24:000.70[facility] Yonis MYPQNLLKJOOU1842-37-20 08:24:008.4[facility] JuolufdLRJZAPSJUSIR9919-70-29 08:24:83767Kmoufuyj RonynabQZKWLDIECOHX1002-95-78 08:24:0086[facility] Arma XXLANZJKAQYJ5948-40-56 08:24:006[facility] JkzhrteNWPMLSJXYV8186-09-94 08:24:00 11.6[facility] CnnalteESEMXBYTAJ3310-73-44 08:24:003.78[facility] HermannHEMATOLOGY 2019-01-26 08:24:0013.3[facility] AiqrkigDOCDSYWJPG9007-62-99 08:24:0034.0[facility] KdlskoaWVWNDKYENX4368-30-81 08:24:006.3[facility] VkgibghYOSFBRLVRJ3560-77-64 08:24:00 Test Item Value Reference Range Interpretation Comments MCH (test code = MCH) 30.7 pg 27.0-31.0 [facility] YlorolyPEOIGBFSME3757-60-57 08:24:0090.3[facility] HermannHEMATOLOGY 2019-01-26 08:24:0034.2[facility] JxarrjzLUYKXJQQBI5513-24-66 08:24:72106Vjbrzqmm EiskphbPVUHYNSSBF1011-80-23 08:24:007.5[facility] HermannCHEM XHGEQ1821-00-02 09:14:69762Itjjgnpj HermannCHEM EKWUN9262-31-09 09:14:008.5[facility] HermannCHEM YKUQZ9529-13-55 09:14:0013.3[facility] HermannCHEM JPCTB7333-62-38 09:14:0024 [facility] HermannCHEM YIWKZ5603-73-13 09:14:30356Hcydwmjc HermannCHEM PANEL 2019-01-25 09:14:0081[facility] HermannCHEM OMVEV8914-58-52 09:14:002[facility] HermannCHEM QTABB0626-15-71 09:14:003.3[facility] HermannCHEM QQGEW2442-34-79 09:14:000.60[facility] HermannCHEM CEVTI2161-78-31 09:14:19688Sxlxamyc Arma MOLECULAR IXMULMDAEA6643-31-73 16:22:00Negative (01/23/19 11:22 AM)[facility] HermannCHEM CRACD6062-52-88 15:42:002.76[facility] HermannCHEM YPQYZ5743-53-01 12:32:000.9[facility] TroaagxHMIDXGRFMQ2220-70-44 10:50:0013.1[facility] Yonis FIHWFZNXST4144-69-53 10:50:28243Xxnipeqk EnrbpsvLCDDCLEAOD1836-47-16 10:50:007.7 [facility] AcpzhyjKFWCMAFLWL9069-04-21 10:50:008.6[facility] HermannHEMATOLOGY 2019-01-23 10:50:0010.0[facility] ZpzvzptBTITOPKXMH7413-74-49 10:50:0034.6[facility] CmymyjqNCOVQYSUHO5106-18-52 10:50:0028.7[facility] DrjqueyWLKVCWCKCS4611-88-94 10:50:0087.8[facility] AzzjlgtZSUVQUMGSA7018-57-88 10:50:00 Test Item Value Reference Range Interpretation Comments MCH (test code = MCH) 30.4 pg 27.0-31.0 [facility] DzmjroaJMUFANYBFG0454-66-43 10:50:003.27[facility] HermannCHEM PANEL 2019-01-23 10:50:002.0[facility] HermannCHEM CLEMX3990-92-89 10:50:84526Nhbeueju HermannCHEM WFBTD4593-57-26 10:50:0023[facility] HermannCHEM VRIPS0575-50-89 10:50:40538Sqeiqivi HermannCHEM FDBAE7020-05-51 10:50:003.1[facility] HermannCHEM YJYPP5722-57-18 10:50:12360Twsduweg HermannCHEM NUIJU6100-30-90 10:50:005 [facility] HermannCHEM EGJRS8466-69-24 10:50:000.50[facility] HermannCHEM PANEL 2019-01-23 10:50:007.8[facility] HermannCHEM CPWXO7507-21-55 10:50:0083[facility] HermannCHEM TUSLR5769-25-76 10:50:0010.1[facility] ZqdfjubQGGBUGNPPM9043-81-93 10:50:000.2[facility] MksanhiCILYIOXTYB9907-25-95 10:50:000.8[facility] Arma JLFRORKYOA0464-18-98 10:50:005.5[facility] IsmmwbcKCYHIOXICF7022-49-91 10:50:002.2 [facility] TwfcllyLXVWAROAXL0462-71-22 10:50:000.1[facility] HermannHEMATOLOGY 2019-01-23 10:50:0063.6[facility] JgrckeaKHAZHQERMQ0285-27-31 10:50:008.9[facility] NwovpmzSJLOWDJNFX0749-99-53 10:50:002.3[facility] BjekqfwIKJLNCDSTY2912-78-61 10:50:00Normal (01/23/19 5:50 AM)[facility] EbrgonvFHMMWTPEFS8860-18-33 10:50:00 Normal (01/23/19 5:50 AM)[facility] YrouisrIQTIRXAJKA3718-31-61 10:50:0025.1[facility] HermannCHEM SJVHQ3377-43-46 11:32:002.4[facility] HermannCHEM ZRGQH2337-62-50 09:04:003.0[facility] HermannURINE AND SSZEX1336-53-78 07:14:00 Test Item Value Reference Range Interpretation Comments UA Spec Grav (test code = UA Spec 1.014 1 Grav) [facility]ann[facility] AND HBGFY8533-08-15 07:14:00 Test Item Value Reference Range Interpretation Comments UA pH (test code = UA pH) 6.0 1 5.0-8.0 [facility] AND HFXHN8612-13-46 07:14:00Negative (01/22/19 2:14 AM) [facility] TVAMU0776-52-48 07:14:00Negative *NA*(01/22/19 2:14 AM) [facility] OMKVF5493-50-21 07:14:00Negative *NA*(01/22/19 2:14 AM) [facility] QSEEQ9466-81-61 07:14:00Negative *NA*(01/22/19 2:14 AM) [facility] RGLPY8660-89-11 07:14:00Negative (01/22/19 2:14 AM) [facility] XXJUI5651-08-22 07:14:00Negative (01/22/19 2:14 AM) [facility] HFZUV7361-35-85 07:14:00Negative (01/22/19 2:14 AM) [facility] YTUDF9761-75-27 07:14:00<1[facility]ann[facility] AND ZHZPD3188-05-52 07:14:0025[facility]annUR[facility] AND WRWLR1127-42-80 07:14:002 [facility] AND ZSMYJ2578-98-39 07:14:00Light Yellow *NA*(01/22/19 2:14 AM)[facility]ann[facility] AND SLMPP3552-71-03 07:14:00Clear (01/22/19 2:14 AM) [facility] IogmktlGZJDC1967-75-89 05:16:000.90[facility] HermannBLOOD BANK RESULTS 2019-01-22 05:01:00Negative (01/22/19 12:01 AM)[facility] HermannCARDIAC ENZYMES 2019-01-22 05:01:00<0.02[facility] HermannCARDIAC HIZVURY5296-93-65 05:01:0049 [facility] HermannCHEM NOKDL9978-77-17 05:01:000.6[facility] HermannCHEM PANEL 2019-01-22 05:01:92484Fjgngslh HermannCHEM VAWXW0236-94-29 05:01:004.0[facility] HermannCHEM NBXXF9311-34-04 05:01:0017[facility] HermannCHEM QHOEN4951-79-79 05:01:0025[facility] HermannCHEM LXZVU7033-63-04 05:01:008.1[facility] HermannCHEM QYPWE7157-62-37 05:01:00 Test Item Value Reference Range Interpretation Comments B/C Ratio (test code = B/C Ratio) 20 1 6-25 [facility] HermannCHEM XZGRO4542-40-19 05:01:00 Test Item Value Reference Range Interpretation Comments A/G Ratio (test code = A/G Ratio) 1.0 1 0.7-1.6 [facility] HermannCHEM DGCSR7151-47-62 05:01:004.1[facility] HermannCHEM PANEL 2019-01-22 05:01:006.90[facility] RbvmxkjOWHAWWHGYXNLA6542-71-49 05:01:00Negative *NA*(01/22/19 12:01 AM)[facility] RpsuiegGXWCZRRINR3760-60-64 05:01:000.1[facility] YwexgynWMWMSMDBIQ5881-88-36 05:01:000.7[facility] SjbtwioKNGXTZINPT0017-27-68 05:01:000.0[facility] GuoesbnFVIJEDINFI6091-87-34 05:01:000.0[facility] Arma ZGNEGODLIN1350-81-99 05:01:000.9[facility] KyryvikXACSDQOMIQ3510-66-78 05:01:008.6 [facility] NiqcjexVRONCBMCKE0679-35-26 05:01:000.6[facility] HermannHEMATOLOGY 2019-01-22 05:01:0086.5[facility] OnvucovNRAADFBWOL9496-65-04 05:01:005.7[facility] IxgzofaSKPDJBAVQI3998-81-42 05:01:006.9[facility] GzymanpHSBRVDMLAJ1257-91-76 05:01:009.9[facility] UyuorkcDHJTWBEZHS9684-65-59 05:01:0032.8[facility] Yonis XEMBKYOMPM7892-80-57 05:01:0013.6[facility] UhqwakjCFNDZLJCTX3330-96-19 05:01:00 443[facility] WmjeinrCUSQEVWCZU4904-30-23 05:01:007.3[facility] HermannHEMATOLOGY 2019-01-22 05:01:0014.0[facility] QyrajmxPMPQUCZZMY1754-78-08 05:01:004.85[facility] RzivnmpNYCWKOUPVV6705-45-24 05:01:0042.7[facility] AimkbayZRGTPQVQZD9664-41-64 05:01:00 Test Item Value Reference Range Interpretation Comments MCH (test code = MCH) 29.0 pg 27.0-31.0 [facility] JdorkxpPLJWFEHBBR7967-89-96 05:01:0088.2[facility] HermannHEMATOLOGY 2019-01-22 05:01:00 Test Item Value Reference Range Interpretation Comments INR (test code = INR) 0.96 1 0.85-1.17 [facility] NzhqupjMVUXCWDELG6428-68-21 05:01:00 Test Item Value Reference Range Interpretation Comments PT (test code = PT) 12.6 s 12.0-14.7 [facility]IMMK9800-[facility]-47 05:01:00 Test Item Value Reference Range Interpretation Comments PTT (test code = PTT) 25.9 s 22.9-35.8 [facility]JefsisyPXQ6C6163-40-62 14:36:00 Test Item Value Reference Range Interpretation [...] 0.00-0.01 N code = ETOHU) Comprehensive Metabolic Rbkxu5166-19-71 14:36:00 Test Item Value Reference Range Interpretation [...] the National Kid[employer] Foundation,http ://nkd ep.nih.gov Urinalysis Qujqtmrt1248-90-39 14:32:00 Test Item Value Reference Range Interpretation Comments Color (test code = COLOR) Yellow Yellow,Straw,Pl N yellow Clarity (test code = Clear Clear N CLAR) Specific Flushing (test 1.024 1.001-1.035 N code = SPGR) [...] code = Few /HPF BACT) CBC with Cctwosognhvs4184-73-48 14:21:00 Test Item Value Reference Range Interpretation [...] code = ALYMPH) 3.0 K/cumm 0.5-4.6 N Dane Abs (test code = AMONO) 0.5 K/cumm 0.0-1.2 N Eos Abs (test code = AEOS) 0.19 K/cumm 0.00-0.74 N Baso Abs (test code = ABASO) 0.1 K/cumm 0.00-0.21 N
[2021-03-28] MEDS ORDERED: PROMETHAZINE INJ 25 MG/ML AMP ONE ×2 (12:36→12:44)
[2021-03-28] MEDS ORDERED: ACETAMINOPHEN 500 MG TAB ONE (12:44)
--- NOTE | 2021-03-28 13:04 | EDPHYS ---
Physician Documentation [facility] Name: Tiffany Quinn Age: 50 yrs Sex: Female : 1970 Arrival Date: 03/28/2021 Time: 09:05 Bed 8 Private MD: ED Physician Demarcus Mancilla HPI: 03/28 12:42 This 50 yrs old Female presents to ER via Ambulatory with complaints of jr8 Nausea, Diarrhea. 12:42 The patient presents to the emergency department with nausea, diarrhea. Onset: The jr8 symptoms/episode began/occurred gradually, 1 week(s) ago. Possible causes: unknown. The symptoms are aggravated by nothing. The symptoms are alleviated by nothing. Associated signs and symptoms: The patient has no apparent associated signs or symptoms. Severity of symptoms: At their worst the symptoms were mild in the emergency department the symptoms are unchanged. It is unknown whether or not the patient has had similar symptoms in the past. The patient has not recently seen a physician. Patient stated that she has persistent nausea that she cannot get rid of with mild diarrhea. Denies any other symptoms at this time . 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 - Social history:: Smoking status: Patient/guardian denies using tobacco, the patient reports quitting approximately 3 years ago. ROS: 12:42 Eyes: Negative for injury, pain, redness, and discharge, ENT: Negative for injury, jr8 pain, and discharge, Neck: Negative for injury, pain, and swelling, Cardiovascular: Negative for chest pain, palpitations, and edema, Respiratory: Negative for shortness of breath, cough, wheezing, and pleuritic chest pain, Back: Negative for injury and pain, MS/Extremity: Negative for injury and deformity, Skin: Negative for injury, rash, and discoloration, Neuro: Negative for headache, weakness, numbness, tingling, and seizure. 12:42 Abdomen/GI: Positive for nausea, diarrhea, Negative for abdominal pain, vomiting, constipation, abdominal cramps, abdominal distension, hematemesis, rectal pain, rectal bleeding. Exam: 12:42 Eyes: Pupils equal round and reactive to light, extra-ocular motions intact. Lids and jr8 lashes normal. Conjunctiva and sclera are non-icteric and not injected. Cornea within normal limits. Periorbital areas with no swelling, redness, or edema. ENT: Nares patent. No nasal discharge, no septal abnormalities noted. Tympanic membranes are normal and external auditory canals are clear. Oropharynx with no redness, swelling, or masses, exudates, or evidence of obstruction, uvula midline. Mucous membranes moist. Neck: Trachea midline, no thyromegaly or masses palpated, and no cervical lymphadenopathy. Supple, full range of motion without nuchal rigidity, or vertebral point tenderness. No Meningismus. Cardiovascular: Regular rate and rhythm with a normal S1 and S2. No gallops, murmurs, or rubs. Normal PMI, no JVD. No pulse deficits. Respiratory: Lungs have equal breath sounds bilaterally, clear to auscultation and percussion. No rales, rhonchi or wheezes noted. No increased work of breathing, no retractions or nasal flaring. Abdomen/GI: Soft, non-tender, with normal bowel sounds. No distension or tympany. No guarding or rebound. No evidence of tenderness throughout. Back: No spinal tenderness. No costovertebral tenderness. Full range of motion. Skin: Warm, dry with normal turgor. Normal color with no rashes, no lesions, and no evidence of cellulitis. MS/ Extremity: Pulses equal, no cyanosis. Neurovascular intact. Full, normal range of motion. Neuro: Awake and alert, GCS 15, oriented to person, place, time, and situation. Cranial nerves II-XII grossly intact. Motor strength 5/5 in all extremities. Sensory grossly intact. Cerebellar exam normal. Normal gait. Vital Signs: 09:13 BP 124 / 75; Pulse 79; Resp 18 S; Temp 97.6(TE); Pulse Ox 100% on R/A; Weight 81.65 kg jd3 (R); Height 5 ft. 2 in. (157.48 cm) (R); Pain 10/10; 12:10 BP 138 / 77; Pulse 77; Resp 18; Temp 98.9(O); Pulse Ox 100% on R/A; Pain 0/10; ld1 13:06 BP 135 / 72; Pulse 74; Resp 18; Pulse Ox 100% on R/A; Pain 0/10; ld1 09:13 Body Mass Index 32.92 (81.65 kg, 157.48 cm) jd3 MDM: 11:56 Patient medically screened. jr8 12:42 Data reviewed: vital signs, nurses notes, and as a result, I will discharge patient. jr8 Data interpreted: Pulse oximetry: on room air is 100 %. Interpretation: normal. Counseling: I had a detailed discussion with the patient and/or guardian regarding: the historical points, exam findings, and any diagnostic results supporting the discharge/admit diagnosis, the need for outpatient follow up, a family practitioner, to return to the emergency department if symptoms worsen or persist or if there are any questions or concerns that arise at home. Response to treatment: the patient's symptoms have markedly improved after treatment. Special discussion: Based on the patient's Hx, exam, and Dx evaluation, there is no indication for emergent surgery or inpatient Tx. It is understood by the patient/guardian that if the Sx's persist or worsen they need to return immediately for re-evaluation. Administered Medications: 12:19 Drug: Promethazine 25 mg Route: IM; Site: right vastus lateralis; sv 13:07 Follow up: Response: No adverse reaction ld1 12:27 Drug: Promethazine 25 mg Route: IM; Site: left vastus lateralis; sv 13:07 Follow up: Response: No adverse reaction ld1 12:27 Drug: Tylenol 1000 mg Route: PO; sv 13:07 Follow up: Response: No adverse reaction ld1 Disposition: 18:50 Co-signature as Attending Physician, Demarcus Mancilla MD I agree with the assessment and kdr plan of care. Disposition: 03/28/21 13:04 Discharged to Home. Impression: Nausea. - Condition is Stable. - Discharge Instructions: Nausea, Adult. - Prescriptions for promethazine 25 mg Oral Tablet - take 1 tablet by ORAL route every 6 hours As needed; 20 tablet. - Medication Reconciliation Form, Thank You Letter, Antibiotic Education, Prescription Opioid Use form. - Follow up: Private Physician; When: 2 - 3 days; Reason: Recheck today's complaints, Continuance of care, Re-evaluation by your physician. - Problem is new. - Symptoms have improved. Signatures: Julissa Marte, RN RN Demarcus Rod MD MD kdr Roszak, Josh, PA PA jr8 Beka Wright RN RN jd3 Radha Paez RN RN ld1 Corrections: (The following items were deleted from the chart) 13:11 13:04 03/28/2021 13:04 Discharged to Home. Impression: Nausea. Condition is Stable. ld1 Forms are Medication Reconciliation Form, Thank You Letter, Antibiotic Education, Prescription Opioid Use. Follow up: Private Physician; When: 2 - 3 days; Reason: Recheck today's complaints, Continuance of care, Re-evaluation by your physician. Problem is new. Symptoms have improved. jr8
--- NOTE | 2021-03-28 13:04 | ER ---
Nurse's Notes [facility] Name: Tiffany Quinn Age: 50 yrs Sex: Female : 1970 Arrival Date: 03/28/2021 Time: 09:05 Bed 8 Private MD: Diagnosis: Nausea Presentation: 03/28 09:10 Chief complaint: Patient states: "I am having nausea and chest pressure. this has been jd3 going on for a couple of days now.". Coronavirus screen: At this time, the client does not indicate any symptoms associated with coronavirus-19. Ebola Screen: Patient negative for fever greater than or equal to 101.5 degrees Fahrenheit, and additional compatible Ebola Virus Disease symptoms. Initial Sepsis Screen: Does the patient meet any 2 criteria? No. Patient's initial sepsis screen is negative. Does the patient have a suspected source of infection? No. Patient's initial sepsis screen is negative. Risk Assessment: Do you want to hurt yourself or someone else? Patient reports no desire to harm self or others. Onset of symptoms was March 26, 2021. 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 - Social history:: Smoking status: Patient/guardian denies using tobacco, the patient reports quitting approximately 3 years ago. Screenin:09 Abuse screen: Denies threats or abuse. Denies injuries from another. Nutritional ld1 screening: No deficits noted. Tuberculosis screening: No symptoms or risk factors identified. Fall Risk None identified. Assessment: 12:08 General: Appears in no apparent distress. comfortable, Behavior is calm, cooperative, ld1 appropriate for age, anxious. Pain: Denies pain. Neuro: Level of Consciousness is awake, alert, obeys commands, Oriented to person, place, time, situation, Appropriate for age. Cardiovascular: Capillary refill < 3 seconds Patient's skin is warm and dry. Rhythm is sinus rhythm. Respiratory: Airway is patent Respiratory effort is even, unlabored, Respiratory pattern is regular, symmetrical. GI: Abdomen is round non-distended, Patient currently denies abdominal pain. GI: Reports diarrhea, nausea. : No signs and/or symptoms were reported regarding the genitourinary system. EENT: No signs and/or symptoms were reported regarding the EENT system. Derm: No signs and/or symptoms reported regarding the dermatologic system. Musculoskeletal: No signs and/or symptoms reported regarding the musculoskeletal system. 12:08 Pain: none Pain began none. ld1 12:20 Reassessment: Pt requesting 25 mg more of phenergan and headache medication. Informed sv Guanako WHITTAKER. See MAR. 13:06 Reassessment: Patient appears in no apparent distress at this time. No changes from ld1 previously documented assessment. Patient and/or family updated on plan of care and expected duration. Pain level reassessed. Waiting on results. Denies concerns at this time. Vital Signs: 09:13 BP 124 / 75; Pulse 79; Resp 18 S; Temp 97.6(TE); Pulse Ox 100% on R/A; Weight 81.65 kg jd3 (R); Height 5 ft. 2 in. (157.48 cm) (R); Pain 10/10; 12:10 BP 138 / 77; Pulse 77; Resp 18; Temp 98.9(O); Pulse Ox 100% on R/A; Pain 0/10; ld1 13:06 BP 135 / 72; Pulse 74; Resp 18; Pulse Ox 100% on R/A; Pain 0/10; ld1 09:13 Body Mass Index 32.92 (81.65 kg, 157.48 cm) jd3 ED Course: 09:05 Patient arrived in ED. ds1 09:11 Triage completed. jd3 09:14 Arm band placed on. jd3 11:56 Guanako Palomino PA is PHCP. jr8 11:56 Demarcus Mancilla MD is Attending Physician. jr8 12:08 Radha Paez RN is Primary Nurse. ld1 12:09 Patient has correct armband on for positive identification. Placed in gown. Bed in low ld1 position. Call light in reach. Side rails up X2. environmental monitoring technician on. Pulse ox on. NIBP on. Door closed. Noise minimized. Warm blanket given. 12:09 Patient maintains SpO2 saturation greater than 95% on room air. ld1 13:11 No provider procedures requiring assistance completed. Patient did not have IV access ld1 during this emergency room visit. Administered Medications: 12:19 Drug: Promethazine 25 mg Route: IM; Site: right vastus lateralis; sv 13:07 Follow up: Response: No adverse reaction ld1 12:27 Drug: Promethazine 25 mg Route: IM; Site: left vastus lateralis; sv 13:07 Follow up: Response: No adverse reaction ld1 12:27 Drug: Tylenol 1000 mg Route: PO; sv 13:07 Follow up: Response: No adverse reaction ld1 Outcome: 13:04 Discharge ordered by . kosta 13:11 Discharged to home ambulatory. ld1 13:11 Condition: stable 13:11 Discharge instructions given to patient, Instructed on discharge instructions, follow up and referral plans. medication usage, Demonstrated understanding of instructions, follow-up care, medications. 13:11 Patient left the ED. ld1 Signatures: Julissa Marte RN RN Neelmia Zhang ds1 Guanako Palomino PA PA jr8 Davies, Jonathon, RN RN jRadha Moctezuma RN RN ld1
[2021-03-28 13:45] VITALS: TEMP 98.9; O2SAT 100
[2021-03-28 13:47] VITALS: BP 135/72
== END 2021-03-28 13:11 | disposition home or self-care (01) ==
LOC: ER 09:04
DX: R11.0 Nausea (principal); R19.7 Diarrhea, unspecified; F41.9 Anxiety disorder, unspecified; F31.9 Bipolar disorder, unspecified; F20.9 Schizophrenia, unspecified; Z87.891 Personal history of nicotine dependence
CPT/HCPCS: 93005; 96372; 99284; J2550 ×2

== ENCOUNTER 2021-04-03 06:50 | Emergency (ER) | payer OTHER ==
--- OUTSIDE RECORDS SUMMARY | 2021-04-03 06:53 | XMS REPORT | Continuity of Care Document ---
:1970 Author Organization [facility] t Address [address] [place] [address] Care Team Providers Name Role Phone UNKNOWN Primary Care Physician Unavailable Singer ESCALANTE Attending Clinician Chente Attending Clinician Unavailable Chente Attending Clinician Unavailable Dav Attending Clinician AFGINGERAPE Attending Clinician Unavailable Chente Admitting Clinician Unavailable Dav Admitting Clinician AFUWAPE Admitting Clinician Unavailable Problems Condition Condition Condition Status Onset Resolution Last Treating Co mments Source Name Details Category Date Date Treatment Clinician Date INFECTIOUS Diagnosis Active 2019-02-06 Memoria GASTROENTE 01-21 08:58:00 l RITIS AND 00:00: Leslie COLITIS INFECTIOUS 00 GASTROENTE RITIS AND COLITIS Active 01/21/2019 [facility] LOW PB Diagnosis Active 2019-01-22 Mem oria 01-21 01:52:00 l LOW PB 00:00: Yonis 00 Active 01/21/2019 [facility] INFECTIOUS Diagnosis Active 2019-02-06 Memoria GASTROENTE 08:58:00 l RITIS AND Yonis COLITIS, INFECTIOUS GASTROENTE RITIS AND COLITIS, Active [facility] Allergies, Adverse Reactions, Alerts Allergy Allergy Status Severity Reaction(s) Onset Inactive Treating Comm ents Source Name Type Date Date Clinician Jm Lemoserga Active Wicho Somers Social History Smoking Status Start Date Stop Date Source Social History 2019-01-22 05:00:12 [facility] Medications Ordered Filled Start Stop Current Ordering [...] 4-04 tab, PO, l oral tablet 17:35: [id number], X Leslie 00 4 day, # 8 tab, 0 [...] s with feeding tube less than 14 [place] (Dobhoff, J-tube etc) and pediatric and patients. Strattera No 0.5 mg/kg, Me moria 01-24 Route: PO, l 14:00: QAM, Leslie 00 Dosing Weight 75, kg, Start date: 01/24/19 9:00:00 CDT, Duration: 30 day, Stop date: 02/22/19 9:00:00 CDT lithium No Notes: Do Memor ia 01-24 not crush l 02:00: or chew. (Same as: Eskalith-C R) Risperdal No Notes: Memori a 01-23 (Same as: l 22:00: Risperdal) Leslie 00 Strattera No 1 mg, Memoria 01-23 Route: PO, l 22:00: QPM, Leslie 00 Dosing Weight 75, kg, Start date: [...] 01-23 (Same As: l 18:00: KlonoPIN) Yonis 00 Flagyl No Notes: Memoria 01-23 (Same as: l 15:00: Flagyl) Take with food/ avoid alcohol Cipro No Notes: May Memori a - interfere l 15:00: w/enteral Leslie 00 feedings - Take 1 hr before or 2 hrs after antacids, dairy pdt & minerals. On empty stomach. tramadol No 50 mg = 1 Etsrada doni hydrochlori 01-23 tab, PO, l de 50 MG 14:20: Q6H, PRN Deloris nn Oral Tablet 00 Pain Score 1-3, 0 Refill(s) potassium Yes 40 mEq, Memor ia chloride 20 01-23 PO, ONCE, l mEq oral 14:20: 0 Yonis tablet, 00 Refill(s) extended release Metronidazo No 500 mg, Mem oria le 500 MG -01 PO, l Oral Tablet 14:20: [id number], 0 H ermann [Flagyl] 00 Refill(s) Ciprofloxac No 500 mg, Mem oria in 500 MG 01-23 PO, l Oral Tablet 14:20: [id number], 0 Leslie [Cipro] 00 Refill(s) Potassium No Notes: Memori [...] s with feeding tube less than 14 [place] (Dobhoff, J-tube etc) and pediatric and patients. Pepcid 2019- No Notes: Memoria 3-31 (Same as: l 22:00: Pepcid) Strattera 2019-0 Yes 0.5 mg/kg, Me moria 3-31 PO, QAM, 0 l 21:08: Refill(s) lithium 450 2018- Yes 450 mg = 1 Memoria mg [...] No 1,000 mL, Memori a saline 0.9% - Rate: 150 l IV 1,000 mL 09:48: ml/hr, Infuse over: 6.7 hr, Route: IV, Dosing Weight 75.994 kg, Total Volume: 1,000, Start date: 01/22/19 4:48:00 CDT, Duration: 30 day, Stop date: 02/21/19 4:47:00 CDT Ondansetron No Notes: Estrada doni 01-22 (Same as: l 09:47: Zofran) Yonis 00 MEDICATION WASTE Product Size: [...] 02/21/19 4:46:00 CDT Zofran No Notes: Memoria -31 (Same as: l 08:56: Zofran) Leslie MEDICATION WASTE Product Size: 4 mg Product [...] Memoria 3-31 (Same as: l 06:10: Zosyn) Leslie Dosing based on Piperacill in component MEDICATION WASTE Product Size: 3375 mg Product Wasted: ___ mg NS (Bolus) No 1,000 mL, Me moria IV 01-22 1,000 l 05:44: ml/hr, Yonis Infuse Over: 1 hr, Route: IV, 1,000, Drug form: INJ, ONCE, Priority: STAT, Dosing Weight 75.994 kg, Start date: 01/22/19 0:44:00 CDT, Stop date: 01/22/19 0:44:00 CDT Zofran No Notes: Memoria 01-22 (Same as: l 04:52: Zofran) Leslie MEDICATION WASTE Product Size: 4 mg Product Wasted: ___ mg Saline No Notes: Memoria Flush 0.9% 01-22 Same as: l 04:52: BD Yonis Posiflush Sterile NS (Bolus) No 1,000 mL, Me moria IV 01-22 1,000 l 04:51: ml/hr, Leslie Infuse Over: 1 hr, Route: IV, 1,000, Drug form: INJ, ONCE, Priority: STAT, Dosing Weight 75.994 kg, Start date: 01/21/19 23:51:00 CDT, Stop date: 01/21/19 23:51:00 CDT Vital Signs Vital Name Observation Time Observation Value Comments Source Temperature Oral (F) 2019-01-28 01:16:00 98.6 F [facility] Leslie Systolic (mm Hg) 2019-01-28 01:16:00 Estrada rial Yonis Diastolic (mm Hg) 2019-01-28 01:16:00 Mem orial Yonis Heart Rate 2019-01-28 01:16:00 [facility] Leslie Respitory Rate 2019-01-28 01:16:00 Memori al Leslie Systolic (mm Hg) 2019-01-27 20:42:00 Estrada rial Yonis Diastolic (mm Hg) 2019-01-27 20:42:00 Mem orial Yonis Heart Rate 2019-01-27 20:42:00 [facility] Leslie Respitory Rate 2019-01-27 20:42:00 Memori al Leslie Temperature Oral (F) 2019-01-27 20:42:00 98.5 F [facility] Yonis Systolic (mm Hg) 2019-01-27 17:00:00 Estrada rial Yonis Diastolic (mm Hg) 2019-01-27 17:00:00 Mem orial Yonis Temperature Oral (F) 2019-01-27 17:00:00 98.5 F Jeanne Somers Heart Rate 2019-01-27 17:00:00 Jeanne Yonis Respitory Rate 2019-01-27 17:00:00 Wicho Gale Height 2019-01-22 14:35:00 157.48 cm [facility] Leslie BMI Calculated 2019-01-22 14:35:00 Memfermin al Yonis Weight 2019-01-22 14:35:00 [facility] Leslie Weight 2019-01-22 04:34:00 [facility] Yonis Procedures This patient has no known procedures. Encounters Start End Encounter Admission Attending Care Care Encounter Source Date/Time Date/Time Type Type Clinicians Facility Department ID 2019-01-22 Inpatient E [facility] [id number] 04:39:00 2020-09-30 2020-09-30 Emergency [facility] [id number] 07:22:00 08:18:00 Gio Jimenez [id number] [place] [id number] [place] [id number] 2020-03-04 2020-03-14 [facility] [id number] 15:38:00 15:25:00 [facility] 2019-01-21 2019-01-27 Outpatient Dav [facility] [id number] 23:33:00 23:40:00 Ed 00 2018-02-21 2018-02-20 [facility] [id number] 14:48:00 13:18:00 [facility] Results Test Description Test Time [...] = Expiration Dt) 10-24-2020 N Thyroid Stimulating Bhcjvjo0335-35-83 08:35:16 Test Item Value Reference Range Interpretation Comments TSH (test code = TSH) 1.170 mIU/mL 0.270-4.200 Lipid Dlnjp3731-36-20 08:21:19 Test Item Value Reference Range Interpretation Comments Cholesterol Total 254 mg/dL 0-200 H RISK OF HE ART (test code = DISEASEPublishe d by Cholesterol Total) [place] [employer] Cathie lyte Optimal Borderl ine [...] calculation is LDL/HDL Ratio=L DL Calc/HDL Chol LLRJYVKFADXL4447-43-34 08:24:008.6[facility] GqlzkkpBEBIUMZKYRDZ5754-73-22 08:24:88638Ccpxsifh LpcvjfrVJWPDAZSKCTP0674-84-21 08:24:0027[facility] STTICSCMXHVC3093-97-28 08:24:44180Wdhylfbt XyixxlwNDMVJMPHDRDI9253-31-16 08:24:003.6[facility] JyvqtwbTZIEBJOJUZJI9230-41-62 08:24:000.70[facility] ESVTRFCXYQAL0508-81-64 08:24:008.4[facility] AaqoxbqOUBWJCNZLFZF4994-94-88 08:24:87326Kyjvvxeu CsrnahuREKUTIFLBMDI9469-01-98 08:24:0086[facility] Leslie XTYBLDMBXFVY7861-61-79 08:24:006[facility] QvthxeuJUQJAKCJPR6326-87-38 08:24:00 11.6[facility] LildpmlFUZOQLTXOG9772-88-38 08:24:003.78[facility]ann[facility] 2019-01-26 08:24:0013.3[facility] HszwjkpPBMYNAMCII0614-81-98 08:24:0034.0[facility] QempbcfPWIWPVIWKS6170-43-57 08:24:006.3[facility] JwrqymyITCEZWZDHW8378-35-86 08:24:00 Test Item Value Reference Range Interpretation Comments MCH (test code = MCH) 30.7 pg 27.0-31.0 [facility] RnukkyxJKBSBTYFYL0202-22-91 08:24:0090.3[facility]annHEMATOLOGY 2019-01-26 08:24:0034.2[facility] MpnewpfFUACTNSMRW0469-91-42 08:24:82021Idegvsps CzhyqjeDPWXKDBKDI5070-97-89 08:24:007.5[facility] HermannCHEM LJFBJ6528-83-18 09:14:05085Usrqkckf HermannCHEM SOQZV8559-26-82 09:14:008.5[facility] HermannCHEM SLGQL7739-78-15 09:14:0013.3[facility] HermannCHEM NDAJO4113-86-19 09:14:0024 [facility]annCHEM RMWXD2550-38-24 09:14:92702Nmixqfdz HermannCHEM PANEL 2019-01-25 09:14:0081[facility] HermannCHEM ZURKP8496-34-80 09:14:002[facility]annCHEM AXZKR1673-72-52 09:14:003.3[facility] HermannCHEM IBCPD9575-31-05 09:14:000.60[facility] HermannCHEM QXAAS1802-22-86 09:14:38244Jvhylrgt Leslie MOLECULAR BWEQYOVCNQ4085-00-84 16:22:00Negative (01/23/19 11:22 AM)[facility]annCHEM NQIPE9464-59-94 15:42:002.76[facility] HermannCHEM ORPYF9996-05-74 12:32:000.9[facility] FjtwixuGHMOMOQYXQ2746-03-73 10:50:0013.1[facility] Yonis URAOJOCYPF2268-91-52 10:50:41298Mrtokzlf QxgpuycJBPJQZVXRU2161-42-83 10:50:007.7 [facility] KspbkicOATTAOIISW9860-56-30 10:50:008.6[facility]annHEMATOLOGY 2019-01-23 10:50:0010.0[facility] NbaxdqsUYQEAZMFFY9977-29-11 10:50:0034.6[facility] PxmktswGHEUVRJFYQ7186-52-37 10:50:0028.7[facility] ZjbvigrZGDCNHURCQ1994-09-37 10:50:0087.8[facility] IflkxruSHVAPPJVJR2702-08-90 10:50:00 Test Item Value Reference Range Interpretation Comments MCH (test code = MCH) 30.4 pg 27.0-31.0 [facility] SmmorihUGIDHFGECC4164-46-31 10:50:003.27[facility] HermannCHEM PANEL 2019-01-23 10:50:002.0[facility] HermannCHEM QMVWU6004-47-19 10:50:06265Predwbmn HermannCHEM VEXCO9110-03-47 10:50:0023[facility] HermannCHEM QRGRZ1944-76-86 10:50:70067Tgwxqjds HermannCHEM ZERNQ4626-21-66 10:50:003.1[facility]annCHEM IRSDP1658-32-25 10:50:37043Nigjaqli HermannCHEM VALLJ2635-56-24 10:50:005 [facility]annCHEM RMUQH0757-18-93 10:50:000.50[facility] HermannCHEM PANEL 2019-01-23 10:50:007.8[facility] HermannCHEM BXGKT6050-14-85 10:50:0083[facility] HermannCHEM DOZFU3427-21-56 10:50:0010.1[facility] SaqakdbSCJZZSFVBE6484-24-18 10:50:000.2[facility] OyvkgcuEHZLMZAKOP6933-83-27 10:50:000.8[facility] Leslie WBWNHRXFAP4780-20-70 10:50:005.5[facility] BdonrinCYQCPIRKKE9961-79-19 10:50:002.2 [facility] WjwycfdDMDBLEIVUA5511-17-66 10:50:000.1[facility] HermannHEMATOLOGY 2019-01-23 10:50:0063.6[facility] VsvrrehABMQVQVAXB5541-15-66 10:50:008.9[facility] GwcwdjjGBUZUXCKTW2931-61-14 10:50:002.3[facility] AkwyeplFPBTQXQBGQ3825-98-72 10:50:00Normal (01/23/19 5:50 AM)[facility] OouwghsBYAETKSNFZ2073-22-71 10:50:00 Normal (01/23/19 5:50 AM)[facility] CfazkgjNGAVZWIFRO5969-10-21 10:50:0025.1[facility] HermannCHEM FFZHH8974-23-51 11:32:002.4[facility] HermannCHEM QXKVG3823-28-16 09:04:003.0[facility]annURINE AND UKFUI5385-10-04 07:14:00 Test Item Value Reference Range Interpretation Comments UA Spec Grav (test code = UA Spec 1.014 1 Grav) [facility] RTLVK9201-99-13 07:14:00 Test Item Value Reference Range Interpretation Comments UA pH (test code = UA pH) 6.0 1 5.0-8.0 [facility] NGEDQ8608-19-31 07:14:00Negative (01/22/19 2:14 AM) [facility] DFSZO1196-64-72 07:14:00Negative *NA*(01/22/19 2:14 AM) [facility] UXBJS6563-70-99 07:14:00Negative *NA*(01/22/19 2:14 AM) [facility] GICGD9883-08-50 07:14:00Negative *NA*(01/22/19 2:14 AM) [facility] LPNXX3990-29-68 07:14:00Negative (01/22/19 2:14 AM) [facility] TJWSK7168-60-43 07:14:00Negative (01/22/19 2:14 AM) [facility] PXKQX2688-50-49 07:14:00Negative (01/22/19 2:14 AM) [facility] JVETS0348-41-85 07:14:00<1[facility] CDDSV2516-29-16 07:14:0025[facility] AND ARGVQ0211-22-43 07:14:002 [facility] KFKSN7121-61-81 07:14:00Light Yellow *NA*(01/22/19 2:14 AM)[facility] HRIHN9321-20-12 07:14:00Clear (01/22/19 2:14 AM) [facility] PlqoyuqOZGJB0922-70-77 05:16:000.90[facility] HermannBLOOD BANK RESULTS 2019-01-22 05:01:00Negative (01/22/19 12:01 AM)[facility] HermannCARDIAC ENZYMES 2019-01-22 05:01:00<0.02[facility] HermannCARDIAC YHULNHU5982-19-04 05:01:0049 [facility]annCHEM MPLZC8965-30-52 05:01:000.6[facility] HermannCHEM PANEL 2019-01-22 05:01:40852Gktdckjs HermannCHEM AVLEZ5167-61-16 05:01:004.0[facility] HermannCHEM NBSOM8679-02-05 05:01:0017[facility] HermannCHEM PZGZB9921-84-90 05:01:0025[facility] HermannCHEM GTBIT4576-77-95 05:01:008.1[facility] HermannCHEM JAUVX2350-02-05 05:01:00 Test Item Value Reference Range Interpretation Comments B/C Ratio (test code = B/C Ratio) 20 1 6-25 [facility]annCHEM DZXBY4917-65-42 05:01:00 Test Item Value Reference Range Interpretation Comments A/G Ratio (test code = A/G Ratio) 1.0 1 0.7-1.6 [facility]annCHE[facility] LLXEG7362-35-66 05:01:004.1[facility] HermannCHEM PANEL 2019-01-22 05:01:006.90[facility] OtabphlYUCNSTOXDSELU2759-79-58 05:01:00Negative *NA*(01/22/19 12:01 AM)[facility] HtqocemLOKJQTURCE2321-20-64 05:01:000.1[facility] CpywfsqSVPOQFPEHC7342-52-82 05:01:000.7[facility] TbxkcemRZQBFLUOCZ6112-39-49 05:01:000.0[facility] WwlumkzPZJUXTGUFM0090-65-38 05:01:000.0[facility] Leslie SEJRVGNGLI0628-76-94 05:01:000.9[facility] ZijkcemMCEPAMMULX0635-97-62 05:01:008.6 [facility] ZrtqkpaIUSJTHLCNQ4279-37-64 05:01:000.6[facility] HermannHEMATOLOGY 2019-01-22 05:01:0086.5[facility] AquezebOQOESJECRJ7348-74-77 05:01:005.7[facility] PrlgtoxOJERSBVNEV7128-88-14 05:01:006.9[facility] TbxwzknOTYNUBRROD7646-99-26 05:01:009.9[facility] EcvwjsjADSWVMMZGE1230-41-16 05:01:0032.8[facility] Yonis SEMQLWSVCW6854-03-57 05:01:0013.6[facility] WsfhcdmJHHFYRGCIK1454-72-56 05:01:00 443[facility] EyybnzkNNURBLRZRM0306-43-85 05:01:007.3[facility] HermannHEMATOLOGY 2019-01-22 05:01:0014.0[facility] RjbzclgBRLTBQVYDF0852-97-59 05:01:004.85[facility] PywtnprHTVKNLLYNJ7901-25-41 05:01:0042.7[facility] KxfbfirNPYRXJBUTS8890-03-33 05:01:00 Test Item Value Reference Range Interpretation Comments MCH (test code = MCH) 29.0 pg 27.0-31.0 [facility] LmwqfupZSYPOTBRBB3863-52-59 05:01:0088.2[facility] HermannHEMATOLOGY 2019-01-22 05:01:00 Test Item Value Reference Range Interpretation Comments INR (test code = INR) 0.96 1 0.85-1.17 [facility] CenterEpsdlesYNCNETQEEO2774-54-12 05:01:00 Test Item Value Reference Range Interpretation Comments PT (test code = PT) 12.6 s 12.0-14.7 [facility] CenterJaerlxxUUQOBYLNMU4399-70-06 05:01:00 Test Item Value Reference Range Interpretation Comments PTT (test code = PTT) 25.9 s 22.9-35.8 [place] [address]YpasnqcZGG9W6017-79-81 14:36:00 Test Item Value Reference Range Interpretation [...] 0.00-0.01 N code = ETOHU) Comprehensive Metabolic Oypdr8561-93-46 14:36:00 Test Item Value Reference Range Interpretation [...] the National Kidney Foundation,http ://nkd ep.nih.gov Urinalysis Ecwzopes7071-35-76 14:32:00 Test Item Value Reference Range Interpretation Comments Color (test code = COLOR) Yellow Yellow,Straw,Pl N yellow Clarity (test code = Clear Clear N CLAR) Specific [place] (test 1.024 1.001-1.035 N code = SPGR) [...] code = Few /HPF BACT) CBC with Djzmccvxwhfv2107-56-59 14:21:00 Test Item Value Reference Range Interpretation [...] code = ALYMPH) 3.0 K/cumm 0.5-4.6 N [place] Abs (test code = AMONO) 0.5 K/cumm 0.0-1.2 N Eos Abs (test code = AEOS) 0.19 K/cumm 0.00-0.74 N Baso Abs (test code = ABASO) 0.1 K/cumm 0.00-0.21 N
[2021-04-03 07:49] LABS: Basophils % 0.6 % (0-1.3); Hematocrit 34.5 % (36.0-45.0); Lymphocytes % 27.3 % (15.3-44.8); MPV 8.4 fL (7.6-11.3); RBC Red Blood Cell Count 3.89 M/uL (3.86-4.86)
[2021-04-03] MEDS ORDERED: PROMETHAZINE INJ 25 MG/ML AMP ONE ×3 (07:49→12:36)
[2021-04-03] MEDS ORDERED: FAMOTIDINE 20 MG/2 ML VIAL IV ONE (07:49)
[2021-04-03] MEDS ORDERED: NA CHLORIDE 0.9% 1,000 ML ONE (07:49)
[2021-04-03 07:58] LABS: ALT/SGPT 22 U/L (12-78); AST/SGOT 13 U/L (15-37); Albumin 3.4 g/dL (3.4-5.0); Alkaline Phosphatase 95 U/L (45-117); BUN Blood Urea Nitrogen 11 mg/dL (7-18); Bicarbonate 25 mmol/L (21-32); Bilirubin Direct < 0.1 mg/dL (0-0.2); Bilirubin Total 0.1 mg/dL (0.2-1.0); Glucose Level 108 mg/dL (74-106); Lipase 543 U/L (73-393); Potassium 4.4 mmol/L (3.5-5.1); Protein, Total 6.7 g/dL (6.4-8.2); Sodium Level 141 mmol/L (136-145)
[2021-04-03] MEDS ORDERED: MORPHINE 4 MG/ML SYR ONE (09:46)
--- NOTE | 2021-04-03 12:12 | ER ---
Nurse's Notes [facility] Name: Tiffany Quinn Age: 50 yrs Sex: Female : 1970 Arrival Date: 04/03/2021 Time: 06:54 Bed 8 Private MD: Diagnosis: Nausea and vomiting Presentation: 04/03 06:54 Chief complaint: EMS states: Pt report vomiting for the past 10 hours. Was recently jb4 seen by her PCP and given Zofran. Reports Zofran makes it worse and that she was given Phenergan in the ED the last time she was here, is requesting Phenergan to make it stop. Coronavirus screen: Client denies travel out of the [place] in the last 14 days. At this time, the client does not indicate any symptoms associated with coronavirus-19. Ebola Screen: No symptoms or risks identified at this time. Initial Sepsis Screen: Does the patient meet any 2 criteria? No. Patient's initial sepsis screen is negative. Does the patient have a suspected source of infection? No. Patient's initial sepsis screen is negative. Risk Assessment: Do you want to hurt yourself or someone else? Patient reports no desire to harm self or others. Onset of symptoms was April 02, 2021. Transition of care: patient was not received from another setting of care. 06:54 Method Of Arrival: EMS: [facility] 06:54 Acuity: MANUEL 3 jb4 Historical: - Allergies: 06:59 Haldol; jb4 06:59 Stadol; jb4 06:59 Toradol; jb4 - Home Meds: 06:59 Fioricet Oral [Active]; [place] Carbonate Oral [Active]; Zofran Oral [Active]; jb4 - PMHx: 06:59 ADD/ADHD; Anxiety; Bipolar disorder; Hernia; Migraines; PSYCH PROBLEMS; Schizophrenia; jb4 unsure if she is; Seizures; - Immunization history:: Adult Immunizations up to date. - Social history:: Smoking status: Patient denies any tobacco usage or history of. Patient/guardian denies using alcohol, street drugs. Screenin:43 Abuse screen: Denies threats or abuse. Denies injuries from another. Nutritional hb screening: No deficits noted. Tuberculosis screening: No symptoms or risk factors identified. Fall Risk None identified. Assessment: 07:43 General: Appears in no apparent distress. Behavior is calm, cooperative. Pain: Denies hb pain. Neuro: Level of Consciousness is awake, alert, obeys commands, Oriented to person, place, time, situation. Cardiovascular: Patient's skin is warm and dry. Rhythm is regular. Respiratory: Respiratory effort is even, unlabored, Respiratory pattern is regular, symmetrical. GI: Reports nausea, vomiting. : No signs and/or symptoms were reported regarding the genitourinary system. EENT: No signs and/or symptoms were reported regarding the EENT system. Derm: Skin is pink, warm \T\ dry. Musculoskeletal: No signs and/or symptoms reported regarding the musculoskeletal system. 08:22 Reassessment: PIV infiltrated, site swollen, pt denies pain at site. Unable to hb establish PIV access. Charge nurse Chante and Dr. Amos notified. 08:31 Reassessment: Charge Nurse Chante at bedside to establish PIV access. hb 08:32 Reassessment: Patient appears in no apparent distress at this time. No changes from hb previously documented assessment. Patient and/or family updated on plan of care and expected duration. Pain level reassessed. 09:12 Reassessment: Dr. Amos at bedside to establish PIV access. hb 09:32 Reassessment: Pt c/o headache, requesting pain medication. Dr. Amos notified, hb morphine administered as ordered. VSS. 10:31 Reassessment: Patient appears in no apparent distress at this time. Patient and/or hb family updated on plan of care and expected duration. Pain level reassessed. Patient is alert, oriented x 3, equal unlabored respirations, skin warm/dry/pink. 11:12 Reassessment: Patient appears in no apparent distress at this time. hb 12:24 Reassessment: Patient appears in no apparent distress at this time. Patient and/or hb family updated on plan of care and expected duration. Pain level reassessed. Patient is alert, oriented x 3, equal unlabored respirations, skin warm/dry/pink. Vital Signs: 06:54 BP 120 / 62; Pulse 70; Resp 16; Temp 97.9(TE); Pulse Ox 97% on R/A; Weight 87.54 kg jb4 (R); Height 5 ft. 2 in. (157.48 cm); Pain 0/10; 08:00 BP 122 / 68; Pulse 68; Resp 15; Pulse Ox 99% on R/A; hb 09:30 BP 124 / 74; Pulse 66; Resp 16; Pulse Ox 97% on R/A; hb 11:00 BP 120 / 70; Pulse 68; Resp 15; Pulse Ox 100% on R/A; hb 06:54 Body Mass Index 35.30 (87.54 kg, 157.48 cm) jb4 ED Course: 06:54 Patient arrived in ED. jb4 06:57 Triage completed. jb4 06:59 Arm band placed on right wrist. jb4 07:03 Demarcus Amos MD is Attending Physician. kdr 07:26 Gabby Sawyer RN is Primary Nurse. hb 07:32 Inserted saline lock: 22 gauge in left antecubital area, using aseptic technique. hb ,using aseptic technique. by KJ Blood collected. 07:43 Patient has correct armband on for positive identification. Bed in low position. Call hb light in reach. 08:26 Basic Metabolic Panel Sent. sv 08:26 Lipase Sent. sv 08:26 Hepatic Function Sent. sv 12:25 No provider procedures requiring assistance completed. IV discontinued, intact, hb bleeding controlled, No redness/swelling at site. Administered Medications: 07:41 Drug: Pepcid (famotidine) 20 mg Route: IVP; Site: left antecubital; hb 10:30 Follow up: Response: No adverse reaction hb 07:42 Drug: Promethazine 25 mg Route: IVP; Site: left antecubital; hb 08:11 Follow up: Response: No adverse reaction hb 07:42 Drug: NS 0.9% 1000 ml Route: IV; Rate: 1 bolus; Site: left antecubital; hb 09:31 Drug: morphine 4 mg Route: IVP; Site: left jugular; hb 10:11 Follow up: Response: No adverse reaction hb 12:23 Drug: Phenergan (promethazine) 25 mg Route: IM; Site: left deltoid; sv 12:26 Follow up: Response: Medication administered at discharge. hb Outcome: 12:11 Discharge ordered by . kdr 12:25 Discharged to home ambulatory. hb 12:25 Condition: stable 12:25 Discharge instructions given to patient, Instructed on discharge instructions, follow up and referral plans. medication usage, Demonstrated understanding of instructions, follow-up care, medications, Prescriptions given X 1. 13:02 Patient left the ED. Signatures: Julissa Marte, RN RN Demarcus Rod MD MD kdr Baxter, Heather, RN RN Carlos Blanco RN RN jb4
--- NOTE | 2021-04-03 12:12 | EDPHYS ---
Physician Documentation [facility] Name: Tiffany Quinn Age: 50 yrs Sex: Female : 1970 Arrival Date: 04/03/2021 Time: 06:54 Bed 8 Private MD: ED Physician Demarcus Mancilla HPI: 04/03 07:58 This 50 yrs old Female presents to ER via EMS with complaints of Vomiting. kdr 07:58 The patient presents to the emergency department with nausea, that is mild, vomiting, kdr that is intermittent, diarrhea, that is intermittent. Onset: The symptoms/episode began/occurred gradually, 10 hour(s) ago, The diarrhea has been for weeks. Possible causes: unknown. The symptoms are aggravated by nothing. food , The symptoms are alleviated by nothing. Associated signs and symptoms: Pertinent positives: nausea, vomiting. Severity of symptoms: At their worst the symptoms were. The patient has experienced similar episodes in the past, a few times. The patient has not recently seen a physician. Historical: - Allergies: 06:59 Haldol; jb4 06:59 Stadol; jb4 06:59 Toradol; jb4 - Home Meds: 06:59 Fioricet Oral [Active]; [address] Carbonate Oral [Active]; Zofran Oral [Active]; jb4 - PMHx: 06:59 ADD/ADHD; Anxiety; Bipolar disorder; Hernia; Migraines; PSYCH PROBLEMS; Schizophrenia; jb4 unsure if she is; Seizures; - Immunization history:: Adult Immunizations up to date. - Social history:: Smoking status: Patient denies any tobacco usage or history of. Patient/guardian denies using alcohol, street drugs. ROS: 07:58 Constitutional: Negative for fever, chills, and weight loss, Eyes: Negative for injury, kdr pain, redness, and discharge, Neck: Negative for injury, pain, and swelling, Cardiovascular: Negative for chest pain, palpitations, and edema, Respiratory: Negative for shortness of breath, cough, wheezing, and pleuritic chest pain, Back: Negative for injury and pain, : Negative for injury, bleeding, discharge, and swelling, MS/Extremity: Negative for injury and deformity, Skin: Negative for injury, rash, and discoloration, Neuro: Negative for headache, weakness, numbness, tingling, and seizure activity. Psych: Negative for depression, anxiety, suicide ideation, homicidal ideation, and hallucinations, Allergy/Immunology: Negative for hives, rash, and allergies. 07:58 Abdomen/GI: Positive for nausea and vomiting. Exam: 07:58 Constitutional: This is a well developed, well nourished patient who is awake, alert, kdr and in no acute distress. Head/Face: Normocephalic, atraumatic. Eyes: Pupils equal round and reactive to light, extra-ocular motions intact. Lids and lashes normal. Conjunctiva and sclera are non-icteric and not injected. Cornea within normal limits. Periorbital areas with no swelling, redness, or edema. Neck: Trachea midline, no thyromegaly or masses palpated, and no cervical lymphadenopathy. Supple, full range of motion without nuchal rigidity, or vertebral point tenderness. No Meningismus. Chest/axilla: Normal chest wall appearance and motion. Nontender with no deformity. No lesions are appreciated. Cardiovascular: Regular rate and rhythm with a normal S1 and S2. No gallops, murmurs, or rubs. Normal PMI, no JVD. No pulse deficits. Respiratory: Lungs have equal breath sounds bilaterally, clear to auscultation and percussion. No rales, rhonchi or wheezes noted. No increased work of breathing, no retractions or nasal flaring. Abdomen/GI: Soft, non-tender, with normal bowel sounds. No distension or tympany. No guarding or rebound. No evidence of tenderness throughout. Back: No spinal tenderness. No costovertebral tenderness. Full range of motion. Skin: Warm, dry with normal turgor. Normal color with no rashes, no lesions, and no evidence of cellulitis. MS/ Extremity: Pulses equal, no cyanosis. Neurovascular intact. Full, normal range of motion. Neuro: Awake and alert, GCS 15, oriented to person, place, time, and situation. Cranial nerves II-XII grossly intact. Motor strength 5/5 in all extremities. Sensory grossly intact. Cerebellar exam normal. Normal gait. Psych: Awake, alert, with orientation to person, place and time. Behavior, mood, and affect are within normal limits. Vital Signs: 06:54 BP 120 / 62; Pulse 70; Resp 16; Temp 97.9(TE); Pulse Ox 97% on R/A; Weight 87.54 kg jb4 (R); Height 5 ft. 2 in. (157.48 cm); Pain 0/10; 08:00 BP 122 / 68; Pulse 68; Resp 15; Pulse Ox 99% on R/A; hb 09:30 BP 124 / 74; Pulse 66; Resp 16; Pulse Ox 97% on R/A; hb 11:00 BP 120 / 70; Pulse 68; Resp 15; Pulse Ox 100% on R/A; hb 06:54 Body Mass Index 35.30 (87.54 kg, 157.48 cm) jb4 MDM: 07:58 Data reviewed: vital signs, nurses notes, lab test result(s), radiologic studies. kdr Counseling: I had a detailed discussion with the patient and/or guardian regarding: the historical points, exam findings, and any diagnostic results supporting the discharge/admit diagnosis, lab results, radiology results. 12:11 Patient medically screened. kdr 04/03 07:11 Order name: Basic Metabolic Panel kdr 04/03 07:11 Order name: CBC with Diff; Complete Time: 10:17 kdr 04/03 07:11 Order name: Hepatic Function kdr 04/03 07:11 Order name: Lipase kdr 04/03 07:11 Order name: [address]; Complete Time: 10:17 kdr 04/03 07:11 Order name: Basic Metabolic Panel; Complete Time: 10:17 EDMS 04/03 07:11 Order name: IV Saline Lock; Complete Time: 07:42 kdr 04/03 07:11 Order name: Liver (Hepatic) Function; Complete Time: 10:17 EDMS 04/03 07:11 Order name: Lipase; Complete Time: 10:17 EDMS 04/03 07:11 Order name: Labs collected and sent; Complete Time: 07:42 kdr 04/03 10:11 Order name: PO challenge; Complete Time: 10:30 kdr Administered Medications: 07:41 Drug: Pepcid (famotidine) 20 mg Route: IVP; Site: left antecubital; hb 10:30 Follow up: Response: No adverse reaction hb 07:42 Drug: Promethazine 25 mg Route: IVP; Site: left antecubital; hb 08:11 Follow up: Response: No adverse reaction hb 07:42 Drug: NS 0.9% 1000 ml Route: IV; Rate: 1 bolus; Site: left antecubital; hb 09:31 Drug: morphine 4 mg Route: IVP; Site: left jugular; hb 10:11 Follow up: Response: No adverse reaction hb 12:23 Drug: Phenergan (promethazine) 25 mg Route: IM; Site: left deltoid; sv 12:26 Follow up: Response: Medication administered at discharge. hb Disposition: 04/03/21 12:11 Discharged to Home. Impression: Nausea and vomiting. - Condition is Stable. - Discharge Instructions: Nausea and Vomiting, Adult, [id number]. - Prescriptions for promethazine 25 mg Oral Tablet - take 1 tablet by ORAL route every 6 hours As needed; 30 tablet. - Medication Reconciliation Form, Thank You Letter form. - Follow up: Private Physician; When: 2 - 3 days; Reason: If symptoms return, Further diagnostic work-up, Recheck today's complaints, Continuance of care, Re-evaluation by your physician. - Problem is an acute exacerbation. - Symptoms have improved. Signatures: Dispatcher [employer] EDKY Julissa Marte, RN RN Demarcus Mancilla MD MD [facility] Gabby Sawyer RN RN Carlos Jewell RN RN jb4 Corrections: (The following items were deleted from the chart) 13:02 12:11 04/03/2021 12:11 Discharged to Home. Impression: Nausea and vomiting. Condition hb is Stable. Forms are Medication Reconciliation Form, Thank You Letter, Antibiotic Education, Prescription Opioid Use. Follow up: Private Physician; When: 2 - 3 days; Reason: If symptoms return, Further diagnostic work-up, Recheck today's complaints, Continuance of care, Re-evaluation by your physician. Problem is an acute exacerbation. Symptoms have improved. kdr
[2021-04-03 13:12] VITALS: TEMP 97.9
[2021-04-03 13:16] VITALS: BP 120/70; O2SAT 100
== END 2021-04-03 13:02 | disposition home or self-care (01) ==
LOC: ER 06:50
DX: R11.2 Nausea with vomiting, unspecified (principal); F20.9 Schizophrenia, unspecified; Z88.5 Allergy status to narcotic agent
CPT/HCPCS: 85025; 80048; 36415; 80178; 80076; 83690; 96372; 99284; J2550 ×3; J7030

== ENCOUNTER 2021-04-04 12:13 | Emergency (ER) | payer OTHER ==
[2021-04-04 14:24] LABS: Urine Blood Negative (Negative); Urine Glucose Negative (Negative); Urine Protein Negative (Negative); Urine Specific Gravity 1.025 (1.005-1.030)
[2021-04-04] MEDS ORDERED: METOCLOPRAMIDE 10 MG/2mL INJ ONE (14:25)
[2021-04-04] MEDS ORDERED: DIPHENHYDRAMINE 50 MG/ML VIAL ONE ×2 (14:25→15:40)
[2021-04-04] MEDS ORDERED: MORPHINE 2 MG/ML SYR ONE (14:25)
[2021-04-04] MEDS ORDERED: NA CHLORIDE 0.9% 1,000 ML ONE (14:26)
[2021-04-04] MEDS ORDERED: PROMETHAZINE INJ 25 MG/ML AMP ONE (15:00)
[2021-04-04] MEDS ORDERED: PANTOPRAZOLE 40MG TABLET PO ONE (15:00)
[2021-04-04 15:08] LABS: ALT/SGPT 22 U/L (12-78); AST/SGOT 24 U/L (15-37); Albumin 3.5 g/dL (3.4-5.0); Alkaline Phosphatase 109 U/L (45-117); BUN Blood Urea Nitrogen 9 mg/dL (7-18); Bicarbonate 25 mmol/L (21-32); Bilirubin Direct < 0.1 mg/dL (0-0.2); Bilirubin Total 0.2 mg/dL (0.2-1.0); Glucose Level 88 mg/dL (74-106); Lipase 88 U/L (73-393); Potassium 4.1 mmol/L (3.5-5.1); Protein, Total 7.7 g/dL (6.4-8.2); Sodium Level 142 mmol/L (136-145)
[2021-04-04 15:32] LABS: Basophils % 0.8 % (0-1.3); Hematocrit 34.5 % (36.0-45.0); Lymphocytes % 23.4 % (15.3-44.8); MPV 7.6 fL (7.6-11.3); RBC Red Blood Cell Count 3.91 M/uL (3.86-4.86)
--- NOTE | 2021-04-04 15:50 | RAD REPORT ---
EXAM DESCRIPTION: CT - Abdomen Pelvis Wo Contrast - 04/04/2021 3:38 pm CLINICAL HISTORY: Abdominal pain. nausea/vomiting;Abd pain COMPARISON: Abdomen Pelvis Wo Contrast dated 10/16/2019 TECHNIQUE: CT imaging of the abdomen and pelvis was performed without contrast. Solid organ, bowel a nd vascular assessment is limited due to lack of IV and oral contrast. All CT scans are performed using dose optimization technique as appropriate and may include automated exposure control or mA/KV adjustment according to patient size. FINDINGS: The lower lung white are clear. The liver, spleen, pancreas, adrenal glands and kidneys are within normal limits for a limited non-co ntrast examination.Cholecystectomy clips. No bowel obstruction, free air, free fluid or abscess. Small fat containing supraumbilical ventral he rnia. The appendix is normal. Moderate stool is present throughout the colon. Mild lower lumbar degenerative changes. IMPRESSION: No acute intra-abdominal or pelvic findings. Moderate stool is present throughout the co darlene. A limited non-contrast examination was performed as detailed.
--- NOTE | 2021-04-04 16:04 | EDPHYS ---
Physician Documentation [facility] Name: Tiffany Quinn Age: 50 yrs Sex: Female : 1970 Arrival Date: 04/04/2021 Time: 12:14 Bed 19 Private MD: ED Physician Demarcus Mancilla HPI: 04/04 13:35 This 50 yrs old Female presents to ER via Ambulatory with complaints of cp Anxiety, Nausea. 13:35 The patient presents to the emergency department with anxiety, over unknown cp circumstances. 13:35 Onset: The symptoms/episode began/occurred chronic, became worse today. Past cp psychiatric history: Prior diagnosis: bipolar disorder, schizophrenia. The patient presents to the emergency department with nausea, that is moderate, vomiting, that is intermittent, abdominal pain, of the upper abdomen. Possible causes: Anxiety. Associated signs and symptoms: Pertinent negatives: diarrhea, dysuria, fever, GI bleeding, active vomiting. Historical: - Allergies: 12:48 Haldol; kg 12:48 Stadol; kg 12:48 Toradol; kg - PMHx: 12:48 ADD/ADHD; Bipolar disorder; Anxiety; Hernia; Migraines; PSYCH PROBLEMS; Schizophrenia; kg unsure if she is; Seizures; - PSHx: 12:48 Cholecystectomy; breast augmentation; kg - Immunization history:: Adult Immunizations not up to date, Client reports receiving the 2nd dose of the Covid vaccine. - Social history:: Smoking status: Patient denies any tobacco usage or history of. ROS: 13:40 Constitutional: Negative for body aches, chills, fever, poor PO intake. cp 13:40 Eyes: Negative for injury, pain, redness, and discharge. cp 13:40 ENT: Negative for ear pain, sore throat, difficulty swallowing, difficulty handling secretions. 13:40 Cardiovascular: Negative for chest pain, palpitations. 13:40 Respiratory: Negative for cough, shortness of breath, wheezing. 13:40 Abdomen/GI: Positive for abdominal pain, nausea, vomiting, Negative for diarrhea, constipation, hematemesis, black/tarry stool, rectal bleeding. 13:40 Back: Negative for radiated pain. 13:40 Skin: Negative for rash. 13:40 Neuro: Negative for altered mental status, headache, syncope, weakness. 13:40 Psych: Positive for anxiety, Negative for auditory hallucinations, visual hallucinations, suicide gesture, suicidal ideation. 13:40 All other systems are negative. Exam: 13:45 Constitutional: The patient appears in no acute distress, alert, awake, cp non-diaphoretic, non-toxic, well developed, well nourished. 13:45 Head/Face: Normocephalic, atraumatic. cp 13:45 Eyes: Periorbital structures: appear normal, Conjunctiva: normal, no exudate, no injection, Sclera: no appreciated abnormality, Lids and lashes: appear normal, bilaterally. 13:45 ENT: External ear(s): are unremarkable, Nose: is normal, Mouth: Lips: moist, Oral mucosa: moist, Posterior pharynx: Airway: no evidence of obstruction, patent. 13:45 Chest/axilla: Inspection: normal, Palpation: is normal, no crepitus, no tenderness. 13:45 Cardiovascular: Rate: normal, Rhythm: regular. 13:45 Respiratory: the patient does not display signs of respiratory distress, Respirations: normal, no use of accessory muscles, no retractions, labored breathing, is not present, Breath sounds: are clear throughout, no decreased breath sounds, no stridor, no wheezing. 13:45 Abdomen/GI: Inspection: abdomen appears normal, Bowel sounds: active, all quadrants, Palpation: soft, in all quadrants, mild abdominal tenderness, in the right upper quadrant, rebound tenderness, is not appreciated, involuntary guarding, is not appreciated. 13:45 Back: CVA tenderness, is absent. 13:45 Neuro: Orientation: to person, place \T\ time. Mentation: is normal, Motor: moves all fours, strength is normal. Vital Signs: 12:43 Pulse 88; Resp 22; Temp 99.1(O); Pulse Ox 99% ; Weight 87.32 kg (M); Height 5 ft. 2 in. kg (157.48 cm); Pain 10/10; 12:49 BP 128 / 76; Pulse 84; Pulse Ox 98% ; kg 13:10 BP 139 / 76; Pulse 80; Resp 18; Pulse Ox 100% on R/A; vg1 14:00 BP 130 / 80; Pulse 76; Resp 16; Pulse Ox 100% on R/A; vg1 15:00 BP 121 / 74; Pulse 67; Resp 14; Pulse Ox 100% on R/A; vg1 15:40 BP 129 / 68; Pulse 67; Resp 14; Pulse Ox 98% on R/A; vg1 12:43 Body Mass Index 35.21 (87.32 kg, 157.48 cm) kg MDM: 13:22 Patient medically screened. cp 14:00 Differential diagnosis: drug withdrawal. acute psychotic break, depression, gastritis, cp pancreatitis. 15:59 Data reviewed: vital signs, nurses notes, lab test result(s), EKG, radiologic studies, cp plain films. Test interpretation: by ED physician or midlevel provider: ECG, plain radiologic studies. 16:02 Response to treatment: the patient's symptoms have markedly improved after treatment, cp VSS. Patient reports anxiety improved. Will discharge to home for continued monitoring. 04/04 13:30 Order name: Basic Metabolic Panel; Complete Time: 15:20 04/04 15:20 Interpretation: Normal except: CL 111; GFR 79. 04/04 13:30 Order name: CBC with Diff; Complete Time: 15:41 04/04 15:41 Interpretation: Normal except: WBC 8.70; HGB 11.4; HCT 34.5; PLT 483. 04/04 13:30 Order name: Hepatic Function; Complete Time: 15:20 04/04 15:20 Interpretation: Normal except: GLOB 4.2; A/G 0.8. 04/04 13:30 Order name: Lipase; Complete Time: 15:20 04/04 14:23 Order name: Urine Dipstick-Ancillary; Complete Time: 15:20 [facility] 04/04 15:35 Order name: Abdomen ; Complete Time: 15:58 EDTN 04/04 13:30 Order name: Labs collected and sent; Complete Time: 15:29 04/04 13:30 Order name: Urine Dipstick-Ancillary (obtain specimen); Complete Time: 14:26 04/04 13:30 Order name: Urine Test (obtain specimen); Complete Time: 14:26 cp 04/04 16:05 Order name: PO challenge; Complete Time: 16:19 cp Administered Medications: 14:29 Not Given (Patient Refused): Pepcid (famotidine) 20 mg IVP once; dilute with 10 mL 0.9% vg1 NaCl; give over 2 minutes 14:29 Not Given (Physician Discretion): Benadryl (diphenhydrAMINE) 25 mg IVP once vg1 14:29 Not Given (Physician Discretion): Reglan (metoCLOPramide) 10 mg IVP once; over 1 to 2 vg1 minutes 14:29 Not Given (Physician Discretion): NS 0.9% 1000 ml IV at 1 bolus Per protocol; 1000 mL vg1 bolus 14:29 Not Given (Physician Discretion): morphine 2 mg IVP once; RASS on ADMIN: Combtv4, Very vg1 Agttd3, Agttd2, Rstlss1, AlertClm0, Drwsy-1, Lt Sdtn-2, Mod Sdtn-3, Dp Sdtn-4, UnArsble-5 14:45 Drug: ProTONIX (pantoprazole) 40 mg Route: PO; vg1 15:45 Follow up: Response: No adverse reaction vg1 14:46 Drug: morphine 2 mg Route: IM; Site: right ventrogluteal; vg1 15:45 Follow up: Response: No adverse reaction; Pain is decreased vg1 14:47 Drug: Phenergan (promethazine) 25 mg Route: IM; Site: right ventrogluteal; vg1 15:45 Follow up: Response: No adverse reaction; Pain is unchanged, physician notified vg1 15:28 Drug: Benadryl (diphenhydrAMINE) 25 mg Route: IM; Site: left ventrogluteal; vg1 16:21 Follow up: Response: No adverse reaction vg1 16:20 Drug: Zofran (Ondansetron) 4 mg Route: PO; vg1 16:20 Follow up: Response: Medication administered at discharge. vg1 Disposition: 04/04/21 16:03 Discharged to Home. Impression: Anxiety disorder, unspecified, Nausea and vomiting, Generalized abdominal pain. - Condition is Stable. - Discharge Instructions: Abdominal Pain, Adult, Nausea and Vomiting, Adult, Generalized Anxiety Disorder. - Prescriptions for Protonix 40 mg Oral Tablet - take 1 tablet by ORAL route once daily; 30 tablet. Reglan 10 mg Oral Tablet - take 1 tablet by ORAL route every 6 hours take 30 minutes before meals and at bedtime; 20 tablet. - Medication Reconciliation Form, Thank You Letter, Antibiotic Education, Prescription Opioid Use form. - Follow up: Private Physician; When: 2 - 3 days; Reason: Recheck today's complaints. - Problem is an acute exacerbation. - Symptoms have improved. - Notes: Addendum: 04/07/2021 07:08 Co-signature as Attending Physician, Demarcus Mancilla MD I agree with the assessment and k dr plan of care. Signatures: Dispatcher [employer] [facility] Demarcus Mancilla MD MD [facility] Bill Hay PA PA cp Ibeth Charles RN RN vg1 Zoë Nelson RN RN kg Corrections: (The following items were deleted from the chart) 04/04 15:36 14:16 Abdomen Pelvis W Con+[id number].RAD.BRZ ordered. [facility] 16:21 16:03 04/04/2021 16:03 Discharged to Home. Impression: Unspecified combined systolic vg1 (congestive) and diastolic (congestive) heart failure. Condition is Stable. Forms are Medication Reconciliation Form, Thank You Letter, Antibiotic Education, Prescription Opioid Use. Follow up: Private Physician; When: 2 - 3 days; Reason: Recheck today's complaints. Problem is an acute exacerbation. Symptoms have improved. cp 16:33 16:21 04/04/2021 16:03 Discharged to Home. Impression: Unspecified combined systolic cp (congestive) and diastolic (congestive) heart failure. Condition is Stable. Discharge Instructions: Heart Failure. Forms are Medication Reconciliation Form, Thank You Letter, Antibiotic Education, Prescription Opioid Use. Follow up: Private Physician; When: 2 - 3 days; Reason: Recheck today's complaints. Problem is an acute exacerbation. Symptoms have improved. vg1 16:46 16:33 04/04/2021 16:03 Discharged to Home. Impression: Anxiety disorder, unspecified; vg1 Nausea and vomiting; Generalized abdominal pain. Condition is Stable. Discharge Instructions: Nausea and Vomiting, Adult, Generalized Anxiety Disorder. Forms are Medication Reconciliation Form, Thank You Letter, Antibiotic Education, Prescription Opioid Use. Follow up: Private Physician; When: 2 - 3 days; Reason: Recheck today's complaints. Problem is an acute exacerbation. Symptoms have improved. cp 04/05 03:02 04/04 15:59 Response to treatment: the patient's symptoms have markedly improved after cp treatment, VSS. Discussed results of labs, EKG and chest xray with patient. Patient would like to continue to monitor symptoms at home vs being admitted for symptoms, cp
--- NOTE | 2021-04-04 16:04 | ER ---
Nurse's Notes [facility] Name: Tiffany Quinn Age: 50 yrs Sex: Female : 1970 Arrival Date: 04/04/2021 Time: 12:14 Bed 19 Private MD: Diagnosis: Anxiety disorder, unspecified;Nausea and vomiting;Generalized abdominal pain Presentation: 04/04 12:43 Chief complaint: Patient states: "I'm having and anxiety attach, vomiting, and kg headache. It started pretty bad this morning at 0800. I went to ER March 28 and April 03 for vomiting and headache but now I have really bad anxiety too. What they gave me isnt working.". Coronavirus screen: Client denies travel out of the [place] in the last 14 days. At this time, unable to obtain information related to travel outside the [place] At this time, the client does not indicate any symptoms associated with coronavirus-19. Ebola Screen: Patient negative for fever greater than or equal to 101.5 degrees Fahrenheit, and additional compatible Ebola Virus Disease symptoms Patient denies exposure to infectious person. Patient denies travel to an Ebola-affected area in the 21 days before illness onset. Initial Sepsis Screen: Does the patient meet any 2 criteria? No. Patient's initial sepsis screen is negative. Does the patient have a suspected source of infection? No. Patient's initial sepsis screen is negative. Risk Assessment: Do you want to hurt yourself or someone else? Patient reports no desire to harm self or others. Onset of symptoms was April 04, 2021 at 08:00. 12:43 Method Of Arrival: Ambulatory kg 12:43 Acuity: MANUEL 4 kg Historical: - Allergies: 12:48 Haldol; kg 12:48 Stadol; kg 12:48 Toradol; kg - PMHx: 12:48 ADD/ADHD; Bipolar disorder; Anxiety; Hernia; Migraines; PSYCH PROBLEMS; Schizophrenia; kg unsure if she is; Seizures; - PSHx: 12:48 Cholecystectomy; breast augmentation; kg - Immunization history:: Adult Immunizations not up to date, Client reports receiving the 2nd dose of the Covid vaccine. - Social history:: Smoking status: Patient denies any tobacco usage or history of. Screenin:10 Abuse screen: Denies threats or abuse. Nutritional screening: No deficits noted. vg1 Tuberculosis screening: No symptoms or risk factors identified. Fall Risk No fall in past 12 months (0 pts). No secondary diagnosis (0 pts). No IV (0 pts). Ambulatory Aid- None/Bed Rest/Nurse Assist (0 pts). Gait- Normal/Bed Rest/Wheelchair (0 pts) Mental Status- Oriented to own ability (0 pts). Total Ramirez Fall Scale indicates No Risk (0-24 pts). Assessment: 13:08 General: Appears in no apparent distress. comfortable, Behavior is cooperative, vg1 anxious. Pain: Complains of pain in head and epigastric area Pain currently is 8 out of 10 on a pain scale. Pain began this morning. Neuro: Level of Consciousness is awake, alert, obeys commands, Oriented to person, place, time, situation. Cardiovascular: Patient's skin is warm and dry. Respiratory: Airway is patent Respiratory effort is even, unlabored. GI: Abdomen is round non-distended, Abdomen is tender to palpation in epigastric area Reports nausea, vomiting. : EENT: No signs and/or symptoms were reported regarding the EENT system. Derm: Skin is intact, is healthy with good turgor. Musculoskeletal: Circulation, motion, and sensation intact. 14:31 Reassessment: Received VO from Bharti WHITTAKER to administer Morphine 2 mg IM x1; Phenergan 25 vg1 mg IM x1; and Protonix 40 mg PO x1. 14:50 Reassessment: Patient appears in no apparent distress at this time. No changes from vg1 previously documented assessment. Patient and/or family updated on plan of care and expected duration. Pain level reassessed. Patient is alert, oriented x 3, equal unlabored respirations, skin warm/dry/pink. 15:18 Reassessment: Received VO from Bharti WHITTAKER to administer Benadryl 25 mg IM x1. vg1 15:59 Reassessment: Patient appears in no apparent distress at this time. Patient and/or vg1 family updated on plan of care and expected duration. Pain level reassessed. Patient is alert, oriented x 3, equal unlabored respirations, skin warm/dry/pink. Vital Signs: 12:43 Pulse 88; Resp 22; Temp 99.1(O); Pulse Ox 99% ; Weight 87.32 kg (M); Height 5 ft. 2 in. kg (157.48 cm); Pain 10/10; 12:49 BP 128 / 76; Pulse 84; Pulse Ox 98% ; kg 13:10 BP 139 / 76; Pulse 80; Resp 18; Pulse Ox 100% on R/A; vg1 14:00 BP 130 / 80; Pulse 76; Resp 16; Pulse Ox 100% on R/A; vg1 15:00 BP 121 / 74; Pulse 67; Resp 14; Pulse Ox 100% on R/A; vg1 15:40 BP 129 / 68; Pulse 67; Resp 14; Pulse Ox 98% on R/A; vg1 12:43 Body Mass Index 35.21 (87.32 kg, 157.48 cm) kg ED Course: 12:14 Patient arrived in ED. as 12:47 Triage completed. kg 12:51 Ibeth Charles, RN is Primary Nurse. vg1 13:10 Patient has correct armband on for positive identification. Bed in low position. Call vg1 light in reach. Side rails up X 1. 13:11 Arm band placed on. vg1 13:15 Bill Hay PA is PHCP. cp 13:15 Demarcus Mancilla MD is Attending Physician. cp 14:38 Initial lab(s) drawn, by me, sent to lab. Missed attempt(s): 22 gauge in left forearm. dh3 Bleeding controlled, band aid applied, catheter tip intact. 15:38 Abdomen In Process Unspecified. EDMS 16:21 No provider procedures requiring assistance completed. Patient did not have IV access vg1 during this emergency room visit. Administered Medications: 14:29 Not Given (Patient Refused): Pepcid (famotidine) 20 mg IVP once; dilute with 10 mL 0.9% vg1 NaCl; give over 2 minutes 14:29 Not Given (Physician Discretion): Benadryl (diphenhydrAMINE) 25 mg IVP once vg1 14:29 Not Given (Physician Discretion): Reglan (metoCLOPramide) 10 mg IVP once; over 1 to 2 vg1 minutes 14:29 Not Given (Physician Discretion): NS 0.9% 1000 ml IV at 1 bolus Per protocol; 1000 mL vg1 bolus 14:29 Not Given (Physician Discretion): morphine 2 mg IVP once; RASS on ADMIN: Combtv4, Very vg1 Agttd3, Agttd2, Rstlss1, AlertClm0, Drwsy-1, Lt Sdtn-2, Mod Sdtn-3, Dp Sdtn-4, UnArsble-5 14:45 Drug: ProTONIX (pantoprazole) 40 mg Route: PO; vg1 15:45 Follow up: Response: No adverse reaction vg1 14:46 Drug: morphine 2 mg Route: IM; Site: right ventrogluteal; vg1 15:45 Follow up: Response: No adverse reaction; Pain is decreased vg1 14:47 Drug: Phenergan (promethazine) 25 mg Route: IM; Site: right ventrogluteal; vg1 15:45 Follow up: Response: No adverse reaction; Pain is unchanged, physician notified vg1 15:28 Drug: Benadryl (diphenhydrAMINE) 25 mg Route: IM; Site: left ventrogluteal; vg1 16:21 Follow up: Response: No adverse reaction vg1 16:20 Drug: Zofran (Ondansetron) 4 mg Route: PO; vg1 16:20 Follow up: Response: Medication administered at discharge. vg1 Outcome: 16:03 Discharge ordered by . cp 16:21 Discharged to home ambulatory. vg1 16:21 Condition: stable 16:21 Discharge instructions given to patient, Instructed on discharge instructions, follow up and referral plans. Demonstrated understanding of instructions, follow-up care. 16:21 Patient left the ED. vg1 16:46 Patient left the ED. vg1 Signatures: Dispatcher [employer] Mercado Corey, PA PA cp Herrera, Deanna 3 Ibeth Charles RN RN vg1 Zoë Nelson RN RN kg
[2021-04-04] MEDS ORDERED: ONDANSETRON 4 MG (ODT) TAB ONE (16:35)
[2021-04-04 16:49] VITALS: TEMP 99.1
[2021-04-04 16:56] VITALS: BP 129/68; O2SAT 98
== END 2021-04-04 16:46 | disposition home or self-care (01) ==
LOC: ER 12:13
DX: F41.9 Anxiety disorder, unspecified (principal); R11.2 Nausea with vomiting, unspecified; R10.84 Generalized abdominal pain; F90.9 Attention-deficit hyperactivity disorder, unspecified type; F31.9 Bipolar disorder, unspecified; F20.9 Schizophrenia, unspecified
CPT/HCPCS: 85025; 80048; 36415; 80076; 81003; 83690; 74176; 96372; 99284; J2550; J1200; J2270; J7030; J2765

== ENCOUNTER 2021-04-05 07:58 | Emergency (ER) | payer OTHER ==
[2021-04-05] MEDS ORDERED: ONDANSETRON 4 MG (ODT) TAB ONE (08:53)
[2021-04-05] MEDS ORDERED: LORAZEPAM 1 MG TABLET ONE ×2 (08:53→09:45)
--- NOTE | 2021-04-05 09:15 | ER ---
Nurse's Notes [facility] Name: Tiffany Quinn Age: 50 yrs Sex: Female : 1970 Arrival Date: 04/05/2021 Time: 08:02 Bed 17 Private MD: Diagnosis: Anxiety disorder, unspecified Presentation: 04/05 07:56 Chief complaint: EMS states: 50 yr old A \T\ O x 4 c/o nausea and vomiting. was here rb3 yesterday for the same complaint. Left her discharge paperwork here when she was discharged. Vital signs are stable, BS 107, BP 130'2/80's, P 70's. Has a history of anxiety, Bipolar, and ADHD. Coronavirus screen: nausea. Ebola Screen: Patient denies travel to an Ebola-affected area in the 21 days before illness onset. Initial Sepsis Screen: Does the patient meet any 2 criteria? No. Patient's initial sepsis screen is negative. Does the patient have a suspected source of infection? No. Patient's initial sepsis screen is negative. Risk Assessment: Do you want to hurt yourself or someone else? Patient reports no desire to harm self or others. 07:56 Method Of Arrival: EMS: [facility] rb3 07:56 Acuity: MANUEL 3 rb3 Triage Assessment: 07:56 General: Appears in no apparent distress. comfortable, Behavior is calm, cooperative. rb3 Pain: Denies pain. Neuro: Level of Consciousness is awake, alert, obeys commands, Oriented to person, place, time, situation. Cardiovascular: Patient's skin is warm and dry. Respiratory: Airway is patent Respiratory effort is even, unlabored, Respiratory pattern is regular, symmetrical. GI: Reports nausea. : No signs and/or symptoms were reported regarding the genitourinary system. 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 - Social history:: Smoking status: Patient/guardian denies using. - Family history:: not pertinent. - Hospitalizations: : No recent hospitalization is reported. Screenin:56 Abuse screen: Denies threats or abuse. Nutritional screening: No deficits noted. rb3 Tuberculosis screening: No symptoms or risk factors identified. Fall Risk None identified. Assessment: 07:56 General: See triage assessment. rb3 08:46 Reassessment: Patient appears in no apparent distress at this time. No changes from rb3 previously documented assessment. 09:19 Reassessment: Patient appears in no apparent distress at this time. Patient and/or rb3 family updated on plan of care and expected duration. Pain level reassessed. Patient is alert, oriented x 3, equal unlabored respirations, skin warm/dry/pink. Vital Signs: 07:56 BP 126 / 81; Pulse 76; Resp 17; Temp 98.8; Pulse Ox 96% ; Weight 87.09 kg; Height 5 ft. rb3 2 in. (157.48 cm); Pain 0/10; 09:00 BP 122 / 78; Pulse 74; Resp 17; Pulse Ox 94% ; rb3 07:56 Body Mass Index 35.12 (87.09 kg, 157.48 cm) rb3 ED Course: 07:56 Patient has correct armband on for positive identification. Bed in low position. Call rb3 light in reach. Side rails up X 1. Pulse ox on. NIBP on. Warm blanket given. 07:56 Arm band placed on right wrist. rb3 08:02 Patient arrived in ED. aa5 08:02 Manuel Ward MD is Attending Physician. rn 08:04 Nory Escobedo, JIGNA is Primary Nurse. rb3 08:07 Triage completed. rb3 09:30 No provider procedures requiring assistance completed. Patient did not have IV access rb3 during this emergency room visit. Administered Medications: 08:35 Drug: Ondansetron 4 mg Route: PO; rb3 09:00 Follow up: Response: No adverse reaction; Nausea unchanged rb3 08:36 Drug: Ativan (LORazepam) 1 mg Route: PO; rb3 09:00 Follow up: Response: No adverse reaction; Anxiety unchanged rb3 09:27 Drug: Ativan (LORazepam) 1 mg Route: PO; rb3 09:29 Follow up: Response: Medication administered at discharge. rb3 09:27 Drug: Phenergan (promethazine) 25 mg Route: PO; rb3 09:29 Follow up: Response: Medication administered at discharge. rb3 Outcome: 09:15 Discharge ordered by . rn :30 Discharged to home ambulatory. rb3 09:30 Condition: stable 09:30 Discharge instructions given to patient, Instructed on discharge instructions, follow up and referral plans. Demonstrated understanding of instructions, follow-up care, Prescriptions given X none. Discharge paperwork and prescriptions from yesterday that the pt forgot was sent home with the pt as well. 09:32 Patient left the ED. rb3 Signatures: Manuel Ward MD MD rn Calderon, Audri RN RN aa5 Nory Escobedo RN RN rb3
--- NOTE | 2021-04-05 09:15 | EDPHYS ---
Physician Documentation [facility] Name: Tiffany Quinn Age: 50 yrs Sex: Female : 1970 Arrival Date: 04/05/2021 Time: 08:02 Bed 17 Private MD: ED Physician Manuel Ward HPI: 04/05 08:11 This 50 yrs old Female presents to ER via EMS with complaints of Nausea, rn Anxiety. 08:11 The patient presents to the emergency department with nausea. Onset: The rn symptoms/episode began/occurred 1 week(s) ago. Possible causes: unknown. The symptoms are aggravated by nothing. The symptoms are alleviated by nothing. Associated signs and symptoms: Pertinent negatives: abdominal pain, fever, GI bleeding. Severity of symptoms: At their worst the symptoms were mild in the emergency department the symptoms are unchanged. The patient has experienced similar episodes in the past. The patient has been recently seen at the [facility] Emergency Department. Reports anxiety, nausea, worse this morning, seen for same yesterday, reports hydroxyzine not working, ativan has worked in past, had blood and ct abdomen neg yesterday. No pain. no fever. No change in symptoms. . 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 - Social history:: Smoking status: Patient/guardian denies using. - Family history:: not pertinent. - Hospitalizations: : No recent hospitalization is reported. ROS: 08:11 Constitutional: Negative for fever, chills, and weight loss, Eyes: Negative for injury, rn pain, redness, and discharge, Neck: Negative for injury, pain, and swelling, Cardiovascular: Negative for chest pain, palpitations, and edema, Respiratory: Negative for shortness of breath, cough, wheezing, and pleuritic chest pain, Abdomen/GI: Negative for abdominal pain, vomiting, diarrhea, and constipation Back: Negative for injury and pain, MS/Extremity: Negative for injury and deformity, Skin: Negative for injury, rash, and discoloration, Neuro: Negative for headache, weakness, numbness, tingling, and seizure, Psych: Negative for suicide ideation, homicidal ideation, and hallucinations. Exam: 08:11 Constitutional: This is a well developed, well nourished patient who is awake, alert, rn + anxious Head/Face: Normocephalic, atraumatic. Eyes: Pupils equal round and reactive to light, extra-ocular motions intact. Lids and lashes normal. Conjunctiva and sclera are non-icteric and not injected. Cornea within normal limits. Periorbital areas with no swelling, redness, or edema. ENT: MMM Cardiovascular: Regular rate and rhythm. No pulse deficits. Respiratory: No increased work of breathing, no retractions or nasal flaring. Abdomen/GI: Soft, non-tender Skin: Warm, dry MS/ Extremity: Pulses equal, no cyanosis. Neuro: Awake and alert, GCS 15, oriented to person, place, time, and situation. Cranial nerves II-XII grossly intact. Motor strength 5/5 in all extremities. Sensory grossly intact. Cerebellar exam normal. Vital Signs: 07:56 BP 126 / 81; Pulse 76; Resp 17; Temp 98.8; Pulse Ox 96% ; Weight 87.09 kg; Height 5 ft. rb3 2 in. (157.48 cm); Pain 0/10; 09:00 BP 122 / 78; Pulse 74; Resp 17; Pulse Ox 94% ; rb3 07:56 Body Mass Index 35.12 (87.09 kg, 157.48 cm) rb3 MDM: 08:02 Patient medically screened. rn 09:14 Differential diagnosis: anxiety. Data reviewed: vital signs, nurses notes, old medical rn records, and as a result, I will discharge patient. Counseling: I had a detailed discussion with the patient and/or guardian regarding: the historical points, exam findings, and any diagnostic results supporting the discharge/admit diagnosis, the need for outpatient follow up, to return to the emergency department if symptoms worsen or persist or if there are any questions or concerns that arise at home. Response to treatment: the patient's symptoms have markedly improved after treatment, and as a result, I will discharge patient. Special discussion: I discussed with the patient/guardian in detail that at this point there is no indication for admission to the hospital. It is understood, however, that if the symptoms persist or worsen the patient needs to return immediately for re-evaluation. Administered Medications: 08:35 Drug: Ondansetron 4 mg Route: PO; rb3 09:00 Follow up: Response: No adverse reaction; Nausea unchanged rb3 08:36 Drug: Ativan (LORazepam) 1 mg Route: PO; rb3 09:00 Follow up: Response: No adverse reaction; Anxiety unchanged rb3 09:27 Drug: Ativan (LORazepam) 1 mg Route: PO; rb3 09:29 Follow up: Response: Medication administered at discharge. rb3 09:27 Drug: Phenergan (promethazine) 25 mg Route: PO; rb3 09:29 Follow up: Response: Medication administered at discharge. rb3 Disposition: 04/05/21 09:15 Discharged to Home. Impression: Anxiety disorder, unspecified. - Condition is Stable. - Discharge Instructions: Generalized Anxiety Disorder. - Medication Reconciliation Form, Thank You Letter, Antibiotic Education, Prescription Opioid Use form. - Follow up: Private Physician; When: As needed; Reason: Recheck today's complaints, Re-evaluation by your physician. - Problem is chronic. - Symptoms have improved. Signatures: Manuel Ward MD MD rn Barber, Rebecca, RN RN rb3 Corrections: (The following items were deleted from the chart) 09:32 09:15 04/05/2021 09:15 Discharged to Home. Impression: Anxiety disorder, unspecified. rb3 Condition is Stable. Forms are Medication Reconciliation Form, Thank You Letter, Antibiotic Education, Prescription Opioid Use. Follow up: Private Physician; When: As needed; Reason: Recheck today's complaints, Re-evaluation by your physician. Problem is chronic. Symptoms have improved. rn
[2021-04-05 09:41] VITALS: BP 122/78; O2SAT 94
[2021-04-05] MEDS ORDERED: PROMETHAZINE 25 MG TABLET ONE (09:45)
== END 2021-04-05 09:32 | disposition home or self-care (01) ==
LOC: ER 07:58
DX: F41.9 Anxiety disorder, unspecified (principal); Z88.5 Allergy status to narcotic agent; Z88.6 Allergy status to analgesic agent; Z98.82 Breast implant status
CPT/HCPCS: 99284; Q0169

== ENCOUNTER 2021-04-06 06:29 | Emergency (ER) | payer OTHER ==
--- NOTE | 2021-04-06 07:25 | ER ---
Nurse's Notes [facility] Name: Tiffany Quinn Age: 50 yrs Sex: Female : 1970 Arrival Date: 04/06/2021 Time: 06:33 Bed 7 Private MD: Diagnosis: Anxiety disorder, unspecified Presentation: 04/06 06:51 Chief complaint: Patient states: she is feeling nauseous, with anxiety and a panic bb attack she has been seen here the last few days for the same thing. Coronavirus screen: At this time, the client does not indicate any symptoms associated with coronavirus-19. Ebola Screen: No symptoms or risks identified at this time. Initial Sepsis Screen: Does the patient meet any 2 criteria? No. Patient's initial sepsis screen is negative. Does the patient have a suspected source of infection? No. Patient's initial sepsis screen is negative. Risk Assessment: Do you want to hurt yourself or someone else? Patient reports no desire to harm self or others. Onset of symptoms was April 06, 2021. 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 - Social history:: Smoking status: Patient/guardian denies using tobacco, the patient reports quitting approximately 4 years ago. - Family history:: not pertinent. - Hospitalizations: : No recent hospitalization is reported. Screenin:03 Abuse screen: Denies threats or abuse. Nutritional screening: No deficits noted. rb3 Tuberculosis screening: No symptoms or risk factors identified. Fall Risk None identified. Assessment: 07:03 General: Appears in no apparent distress. comfortable, Behavior is calm, cooperative. rb3 Pain: Denies pain. Neuro: Level of Consciousness is awake, alert, obeys commands, Oriented to person, place, time, situation. Cardiovascular: Patient's skin is warm and dry. Respiratory: Airway is patent Respiratory effort is even, unlabored, Respiratory pattern is regular, symmetrical. GI: Reports nausea. : No signs and/or symptoms were reported regarding the genitourinary system. Vital Signs: 06:51 BP 117 / 76; Pulse 71; Resp 18 S; Temp 98.1(O); Pulse Ox 98% on R/A; Weight 87.09 kg bb (R); Height 5 ft. 2 in. (157.48 cm) (R); 06:51 Body Mass Index 35.12 (87.09 kg, 157.48 cm) bb ED Course: 06:33 Patient arrived in ED. bp1 06:53 Triage completed. bb 06:54 Arm band placed on Patient placed in an exam room, on a stretcher, on pulse oximetry. bb 06:56 Manuel Ward MD is Attending Physician. rn 07:03 Patient has correct armband on for positive identification. Bed in low position. Call rb3 light in reach. Side rails up X 1. Pulse ox on. NIBP on. 07:10 Nory Escobedo RN is Primary Nurse. rb3 07:35 No provider procedures requiring assistance completed. Patient did not have IV access rb3 during this emergency room visit. Administered Medications: 07:15 Drug: Ativan (LORazepam) 1 mg Route: PO; rb3 07:35 Follow up: Response: No adverse reaction rb3 07:15 Drug: Phenergan (promethazine) 25 mg Route: PO; rb3 07:35 Follow up: Response: No adverse reaction rb3 Outcome: 07:25 Discharge ordered by . rn 07:35 Discharged to home ambulatory. rb3 07:35 Condition: stable 07:35 Discharge instructions given to patient, Instructed on discharge instructions, follow up and referral plans. Demonstrated understanding of instructions, follow-up care, Prescriptions given X none 07:35 Patient left the ED. rb3 Signatures: Keena Lazaro RN RN bb Manuel Ward MD MD rn [place], Brittany bp1 Nory Escobedo RN RN rb3
--- NOTE | 2021-04-06 07:25 | EDPHYS ---
Physician Documentation [facility] Name: iTffany Quinn Age: 50 yrs Sex: Female : 1970 Arrival Date: 04/06/2021 Time: 06:33 Bed 7 Private MD: ED Physician Manuel Ward HPI: 04/06 07:10 This 50 yrs old Female presents to ER via EMS with complaints of Nausea, rn anxiety. 07:10 The patient presents to the emergency department with nausea, anxiety. Onset: The rn symptoms/episode began/occurred at an unknown time. Possible causes: unknown. The symptoms are aggravated by nothing. The symptoms are alleviated by prescription meds. Associated signs and symptoms: Pertinent positives: nausea, Pertinent negatives: abdominal pain, fever, GI bleeding. Severity of symptoms: At their worst the symptoms were moderate in the emergency department the symptoms are unchanged. The patient has experienced similar episodes in the past. The patient has been recently seen by a physician: The patient has been recently seen at the [facility] Emergency Department. Reports nausea and anxiety, here several days in a row, states unable to get in with her psychiatrist since weekend, no new symptoms, felt better yesterday after ativan and phenergan. No suicidal or homicidal ideations.. 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 - Social history:: Smoking status: Patient/guardian denies using tobacco, the patient reports quitting approximately 4 years ago. - Family history:: not pertinent. - Hospitalizations: : No recent hospitalization is reported. ROS: 07:15 Constitutional: Negative for fever, chills, and weight loss, Eyes: Negative for injury, rn pain, redness, and discharge, Neck: Negative for injury, pain, and swelling, Cardiovascular: Negative for chest pain, palpitations, and edema, Respiratory: Negative for shortness of breath, cough, wheezing, and pleuritic chest pain, Abdomen/GI: Negative for abdominal pain, vomiting, diarrhea, and constipation, Back: Negative for injury and pain, : Negative for injury, bleeding, discharge, and swelling, MS/Extremity: Negative for injury and deformity, Skin: Negative for injury, rash, and discoloration, Neuro: Negative for headache, weakness, numbness, tingling, and seizure. Exam: 07:15 Constitutional: This is a well developed, well nourished patient who is awake, alert, rn and in no acute distress. Head/Face: Normocephalic, atraumatic. Eyes: Periorbital areas with no swelling, redness, or edema. Cardiovascular: Regular rate and rhythm. No pulse deficits. Respiratory: No increased work of breathing, no retractions or nasal flaring. Abdomen/GI: soft, non-tender Skin: Warm, dry MS/ Extremity: Pulses equal, no cyanosis Neuro: Awake and alert, GCS 15, oriented to person, place, time, and situation. Psych: Awake, alert, with orientation to person, place and time. Vital Signs: 06:51 BP 117 / 76; Pulse 71; Resp 18 S; Temp 98.1(O); Pulse Ox 98% on R/A; Weight 87.09 kg bb (R); Height 5 ft. 2 in. (157.48 cm) (R); 06:51 Body Mass Index 35.12 (87.09 kg, 157.48 cm) bb MDM: 06:56 Patient medically screened. rn 07:21 Differential diagnosis: anxiety. Data reviewed: vital signs, nurses notes, old medical rn records, and as a result, I will discharge patient. Counseling: I had a detailed discussion with the patient and/or guardian regarding: the historical points, exam findings, and any diagnostic results supporting the discharge/admit diagnosis, the need for outpatient follow up, to return to the emergency department if symptoms worsen or persist or if there are any questions or concerns that arise at home. Response to treatment: the patient's symptoms have mildly improved after treatment, and as a result, I will discharge patient. Special discussion: I discussed with the patient/guardian in detail that at this point there is no indication for admission to the hospital. It is understood, however, that if the symptoms persist or worsen the patient needs to return immediately for re-evaluation. Based on the history and exam findings, there is no indication for further emergent testing or inpatient evaluation. I discussed with the patient/guardian the need to see the psychiatrist for further evaluation of the symptoms. ED course: . Administered Medications: 07:15 Drug: Ativan (LORazepam) 1 mg Route: PO; rb3 07:35 Follow up: Response: No adverse reaction rb3 07:15 Drug: Phenergan (promethazine) 25 mg Route: PO; rb3 07:35 Follow up: Response: No adverse reaction rb3 Disposition: 04/06/21 07:25 Discharged to Home. Impression: Anxiety disorder, unspecified. - Condition is Stable. - Discharge Instructions: Generalized Anxiety Disorder. - Medication Reconciliation Form, Thank You Letter, Antibiotic Education, Prescription Opioid Use form. - Follow up: Private Physician; When: As needed; Reason: Recheck today's complaints, Re-evaluation by your physician. - Problem is chronic. - Symptoms have improved. Signatures: Keena Lazaro RN RN Manuel Dasilva MD MD rn Barber, Rebecca, RN RN rb3 Corrections: (The following items were deleted from the chart) 07:35 07:25 04/06/2021 07:25 Discharged to Home. Impression: Anxiety disorder, unspecified. rb3 Condition is Stable. Forms are Medication Reconciliation Form, Thank You Letter, Antibiotic Education, Prescription Opioid Use. Follow up: Private Physician; When: As needed; Reason: Recheck today's complaints, Re-evaluation by your physician. Problem is chronic. Symptoms have improved. rn
[2021-04-06] MEDS ORDERED: LORAZEPAM 1 MG TABLET ONE (07:33)
[2021-04-06] MEDS ORDERED: PROMETHAZINE 25 MG TABLET ONE (07:33)
[2021-04-06 07:49] VITALS: BP 117/76; TEMP 98.1; O2SAT 98
== END 2021-04-06 07:35 | disposition home or self-care (01) ==
LOC: ER 06:29
DX: F41.9 Anxiety disorder, unspecified (principal); F20.9 Schizophrenia, unspecified; Z98.82 Breast implant status; Z88.5 Allergy status to narcotic agent
CPT/HCPCS: 99284; Q0169

== ENCOUNTER 2021-04-07 06:48 | Emergency (ER) | payer OTHER ==
[2021-04-07 07:49] LABS: Urine Blood Negative (Negative); Urine Glucose Negative (Negative); Urine Protein Negative (Negative); Urine Specific Gravity 1.015 (1.005-1.030)
[2021-04-07] MEDS ORDERED: LORazepam 2 MG/ML VIAL ONE (07:58)
[2021-04-07 08:07] LABS: Absolute Lymphocytes (CBC) 1.6 K/uL (0.7-4.9); Hematocrit 34.7 % (36.0-45.0); Lymphocytes % 19.3 % (15.3-44.8); MPV 7.8 fL (7.6-11.3); RBC Red Blood Cell Count 3.95 M/uL (3.86-4.86)
[2021-04-07 08:19] LABS: Barbiturates POSITIVE (NEGATIVE); Benzodiazepines NEGATIVE (NEGATIVE); Cocaine NEGATIVE (NEGATIVE); METHAMPHETAM NEGATIVE (NEGATIVE); Methadone NEGATIVE (NEGATIVE); Opiates NEGATIVE (NEGATIVE); Phencyclidine NEGATIVE (NEGATIVE); THC Cannibis NEGATIVE (NEGATIVE)
[2021-04-07 08:20] LABS: Protime INR 0.91
[2021-04-07 08:33] LABS: Bicarbonate 24 mmol/L (21-32); Potassium 3.9 mmol/L (3.5-5.1); Sodium Level 140 mmol/L (136-145)
[2021-04-07 08:34] LABS: ALT/SGPT 19 U/L (12-78); AST/SGOT 18 U/L (15-37); Albumin 3.7 g/dL (3.4-5.0); Alkaline Phosphatase 104 U/L (45-117); BUN Blood Urea Nitrogen 5 mg/dL (7-18); Bilirubin Direct < 0.1 mg/dL (0-0.2); Bilirubin Total 0.3 mg/dL (0.2-1.0); Glucose Level 104 mg/dL (74-106); Protein, Total 7.4 g/dL (6.4-8.2)
[2021-04-07] MEDS ORDERED: ONDANSETRON 4 MG (ODT) TAB ONE ×2 (08:59→10:13)
[2021-04-07 09:00] LABS: Lithium 0.9 mmol/L (0.6-1.2)
[2021-04-07 09:02] LABS: Salicylates Level < 1.7 mg/dL (2.8-20)
--- NOTE | 2021-04-07 09:07 | EDPHYS ---
Physician Documentation [facility] Name: Tiffany Quinn Age: 50 yrs Sex: Female : 1970 Arrival Date: 04/07/2021 Time: 06:52 Bed 18 Private MD: ED Physician Bill Palm HPI: 04/07 08:14 This 50 yrs old Female presents to ER via EMS with complaints of anxiety. jo 08:14 The patient presents to the emergency department with anxiety, over unknown jo circumstances. Onset: The symptoms/episode began/occurred 1 week(s) ago. Past psychiatric history: Prior diagnosis: bipolar disorder. anxiety, hx of bipolar. Associated signs and symptoms: The patient has no apparent associated signs or symptoms. Onset: The symptoms/episode began/occurred 3 day(s) ago. Severity of symptoms: At their worst the symptoms were mild moderate in the emergency department the symptoms are unchanged. The patient has not experienced similar symptoms in the past. 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 - Social history:: Smoking status: Patient denies any tobacco usage or history of. - Family history:: not pertinent. ROS: 08:14 Constitutional: Negative for fever, chills, and weight loss, Eyes: Negative for injury, jo pain, redness, and discharge, ENT: Negative for injury, pain, and discharge, Neck: Negative for injury, pain, and swelling, Cardiovascular: Negative for chest pain, palpitations, and edema, Respiratory: Negative for shortness of breath, cough, wheezing, and pleuritic chest pain, Back: Negative for injury and pain, : Negative for injury, bleeding, discharge, and swelling, MS/Extremity: Negative for injury and deformity, Skin: Negative for injury, rash, and discoloration, Neuro: Negative for headache, weakness, numbness, tingling, and seizure, Psych: Negative for depression, anxiety, suicide ideation, homicidal ideation, and hallucinations, Allergy/Immunology: Negative for hives, rash, and allergies, Endocrine: Negative for neck swelling, polydipsia, polyuria, polyphagia, and marked weight changes, Hematologic/Lymphatic: Negative for swollen nodes, abnormal bleeding, and unusual bruising. 08:14 Abdomen/GI: Positive for nausea and vomiting. Exam: 08:14 Constitutional: This is a well developed, well nourished patient who is awake, alert, jo and in no acute distress. Head/Face: Normocephalic, atraumatic. Eyes: Pupils equal round and reactive to light, extra-ocular motions intact. Lids and lashes normal. Conjunctiva and sclera are non-icteric and not injected. Cornea within normal limits. Periorbital areas with no swelling, redness, or edema. ENT: Nares patent. No nasal discharge, no septal abnormalities noted. Tympanic membranes are normal and external auditory canals are clear. Oropharynx with no redness, swelling, or masses, exudates, or evidence of obstruction, uvula midline. Mucous membranes moist. Neck: Trachea midline, no thyromegaly or masses palpated, and no cervical lymphadenopathy. Supple, full range of motion without nuchal rigidity, or vertebral point tenderness. No Meningismus. Chest/axilla: Normal chest wall appearance and motion. Nontender with no deformity. No lesions are appreciated. Cardiovascular: Regular rate and rhythm with a normal S1 and S2. No gallops, murmurs, or rubs. Normal PMI, no JVD. No pulse deficits. Respiratory: Lungs have equal breath sounds bilaterally, clear to auscultation and percussion. No rales, rhonchi or wheezes noted. No increased work of breathing, no retractions or nasal flaring. Abdomen/GI: Soft, non-tender, with normal bowel sounds. No distension or tympany. No guarding or rebound. No evidence of tenderness throughout. Back: No spinal tenderness. No costovertebral tenderness. Full range of motion. Female : Normal external genitalia. Skin: Warm, dry with normal turgor. Normal color with no rashes, no lesions, and no evidence of cellulitis. MS/ Extremity: Pulses equal, no cyanosis. Neurovascular intact. Full, normal range of motion. Neuro: Awake and alert, GCS 15, oriented to person, place, time, and situation. Cranial nerves II-XII grossly intact. Motor strength 5/5 in all extremities. Sensory grossly intact. Cerebellar exam normal. Normal gait. 08:14 Abdomen/GI: Inspection: abdomen appears normal, Bowel sounds: normal, Palpation: nontender, Liver: no appreciated palpable abnormalities, Hernia: not appreciated. 08:14 Musculoskeletal/extremity: DVT Exam: No signs of deep vein thrombosis. no pain, no swelling, no tenderness, negative Homans' sign noted on exam, no appreciated bluish discoloration, no erythema, no increased warmth. 08:14 Psych: Behavior/mood is pleasant, cooperative, anxious, Affect is animated, Oriented to person, place, time, Patient has no thoughts/intents to harm self or others. Judgement / Insight is normal. Memory is normal. Delusions/hallucinations are not present. 08:21 ECG was reviewed by the Attending Physician. [facility] Vital Signs: 06:55 BP 149 / 91; Pulse 81; Resp 18; Temp 99.3(O); Pulse Ox 98% on R/A; Weight 90.26 kg (R); lp1 Height 5 ft. 2 in. (157.48 cm); Pain 10/10; 07:28 BP 121 / 77; Pulse 72; Resp 16 S; Pulse Ox 100% on R/A; jd3 09:12 BP 121 / 76; Pulse 70; Resp 17 S; Pulse Ox 96% on R/A; jd3 06:55 Body Mass Index 36.40 (90.26 kg, 157.48 cm) lp1 MDM: 07:17 Patient medically screened. jo 08:17 Differential diagnosis: drug withdrawal. acute psychotic break, depression. jo Differential Diagnosis altered mental status. Data reviewed: vital signs, nurses notes, lab test result(s), EKG. Data interpreted: athletic monitor: rate is 72 beats/min, Pulse oximetry: on room air is 72 %. Test interpretation: by ED physician or midlevel provider: ECG. Counseling: I had a detailed discussion with the patient and/or guardian regarding: the historical points, exam findings, and any diagnostic results supporting the discharge/admit diagnosis, lab results, radiology results, the need for outpatient follow up, for definitive care, a family practitioner, a psychiatrist. 04/07 07:36 Order name: Acetaminophen; Complete Time: 09:05 [facility] 04/07 07:36 Order name: Basic Metabolic Panel; Complete Time: 09:05 [facility] 04/07 07:36 Order name: CBC with Diff; Complete Time: 09:05 [facility] 04/07 07:36 Order name: ETOH Level; Complete Time: 09:05 [facility] 04/07 07:36 Order name: Hepatic Function; Complete Time: 09:05 [facility] 04/07 07:36 Order name: PT-INR; Complete Time: : [facility] 04/07 07:36 Order name: Ptt, Activated; Complete Time: 09:05 [facility] 04/07 07:36 Order name: Salicylate; Complete Time: 09:05 [facility] 04/07 07:36 Order name: Urine Drug Screen; Complete Time: 09:05 [facility] 04/07 07:36 Order name: [place]; Complete Time: 09:05 [facility] 04/07 07:49 Order name: Urine Dipstick-Ancillary; Complete Time: 09:05 [facility] 04/07 07:36 Order name: EKG; Complete Time: 07:37 [facility] 04/07 07:36 Order name: EKG - Nurse/Tech; Complete Time: 08:03 [facility] 04/07 07:36 Order name: IV Saline Lock; Complete Time: 08:03 [facility] 04/07 07:36 Order name: Labs collected and sent; Complete Time: 08:03 [facility] 04/07 07:36 Order name: Urine Dipstick-Ancillary (obtain specimen); Complete Time: 08:04 [facility] EC:21 Rate is 70 beats/min. Rhythm is regular. QRS [place] is Normal. CA interval is normal. QRS jo interval is normal. QT interval is normal. No Q waves. T waves are Normal. No ST changes noted. Clinical impression: NSR w/ Non-specific ST/T Changes and No evidence of ischemia. Interpreted by me. Reviewed by me. Administered Medications: 08:03 Drug: Ativan (LORazepam) 2 mg Route: IM; Site: right deltoid; jd3 09:58 Follow up: Response: No adverse reaction iw 08:43 Drug: Zofran (Ondansetron) 4 mg Route: PO; jd3 09:58 Follow up: Response: No adverse reaction iw 09:52 CANCELLED (Duplicate Order): Zofran (Ondansetron) 4 mg IVP once; over 2 minutes [facility] 09:55 Drug: Ondansetron 4 mg Route: PO; iw 09:58 Follow up: Response: No adverse reaction Disposition: 04/07/21 09:06 Discharged to Home. Impression: Anxiety disorder, unspecified, Bipolar disorder. - Condition is Fair. - Discharge Instructions: Panic Attacks, Bipolar Disorder, Panic Attacks, [id number]. - Prescriptions for Hydroxyzine HCl 25 mg Oral Tablet - take 2 tablet by ORAL route every 6 hours As needed; 36 tablet. - Medication Reconciliation Form, Thank You Letter, Antibiotic Education, Prescription Opioid Use form. - Follow up: Private Physician; When: 2 - 3 days; Reason: Recheck today's complaints, Continuance of care, Re-evaluation by your physician. Follow up: Cihlo Smith; When: 2 - 3 days; Reason: Recheck today's complaints, Re-evaluation by your physician. - Problem is new. - Symptoms have improved. Signatures: Dispatcher [employer] EDMS Bill Palm MD MD cha Williams, Irene, RN JIGNA iw Lora Lozada RN RN lp1 Beka Wright RN RN jd3 Corrections: (The following items were deleted from the chart) 07:36 07:36 Suicide Screening ([place]) ordered. [facility] jd3 09:52 09:51 Zofran (Ondansetron) 4 mg IVP once; over 2 minutes ordered. [facility] 09:58 09:06 04/07/2021 09:06 Discharged to Home. Impression: Anxiety disorder, unspecified; iw Bipolar disorder. Condition is Fair. Discharge Instructions: Panic Attacks, Bipolar Disorder, Panic Attacks, Vvea-[id number]. Prescriptions for Hydroxyzine HCl 25 mg Oral Tablet - take 2 tablet by ORAL route every 6 hours As needed; 36 tablet. and Forms are Medication Reconciliation Form, Thank You Letter, Antibiotic Education, Prescription Opioid Use. Follow up: Private Physician; When: 2 - 3 days; Reason: Recheck today's complaints, Continuance of care, Re-evaluation by your physician. Follow up: Chilo Smith; When: 2 - 3 days; Reason: Recheck today's complaints, Re-evaluation by your physician. Problem is new. Symptoms have improved. jo
--- NOTE | 2021-04-07 09:07 | ER ---
Nurse's Notes [facility] Name: Tiffany Quinn Age: 50 yrs Sex: Female : 1970 Arrival Date: 04/07/2021 Time: 06:52 Bed 18 Private MD: Diagnosis: Anxiety disorder, unspecified;Bipolar disorder Presentation: 04/07 06:55 Chief complaint: EMS states: Called for patient having panic attack that began at 0100; lp1 states she felt like she could not walk, chest tightness, blurry vision, headache, and nausea; Patient seen here for similar complaint 1 day ago. Coronavirus screen: Client denies travel out of the [place] in the last 14 days. At this time, the client does not indicate any symptoms associated with coronavirus-19. Ebola Screen: No symptoms or risks identified at this time. Initial Sepsis Screen: Does the patient meet any 2 criteria? No. Patient's initial sepsis screen is negative. Does the patient have a suspected source of infection? No. Patient's initial sepsis screen is negative. Risk Assessment: Do you want to hurt yourself or someone else? Patient reports no desire to harm self or others. Onset of symptoms was April 07, 2021 at 01:00. 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 - Social history:: Smoking status: Patient denies any tobacco usage or history of. - Family history:: not pertinent. Screenin:58 Abuse screen: Denies threats or abuse. Nutritional screening: No deficits noted. fu Tuberculosis screening: No symptoms or risk factors identified. Fall Risk None identified. Assessment: 06:52 General: Appears uncomfortable, Behavior is cooperative, appropriate for age, anxious, fu Denies fever, feeling ill, fatigue, chills. Pain: Complains of pain in head Pain does not radiate. Pain currently is 10 out of 10 on a pain scale. Quality of pain is described as "intense" Pain began 6 hours ago. Neuro: Level of Consciousness is awake, alert, obeys commands, anxious. Oriented to person, place, time, situation, Moves all extremities. Speech is normal, Facial symmetry appears normal. Cardiovascular: Denies chest pain. Respiratory: Respiratory effort is even, unlabored, Respiratory pattern is regular. GI: Reports nausea, vomiting, dry heaving. EENT: No signs and/or symptoms were reported regarding the EENT system. Derm: No signs and/or symptoms reported regarding the dermatologic system. Musculoskeletal: No signs and/or symptoms reported regarding the musculoskeletal system. 07:26 General: Appears in no apparent distress. uncomfortable, Behavior is cooperative, jd3 appropriate for age, anxious, Denies fever, feeling ill, fatigue, chills. Pain: Complains of pain in abdomen Quality of pain is described as pressure, tender. Neuro: Level of Consciousness is awake, alert, obeys commands, Oriented to person, place, time, situation, Reports headache. Cardiovascular: Denies chest pain, Heart tones present Capillary refill < 3 seconds Patient's skin is warm and dry. Respiratory: Airway is patent Respiratory effort is even, unlabored, Respiratory pattern is regular, symmetrical, Breath sounds are clear Denies cough, shortness of breath. GI: Abdomen is round non-distended, Abd is soft and non tender X 4 quads. Reports upper abdominal pain, nausea. : No signs and/or symptoms were reported regarding the genitourinary system. EENT: No signs and/or symptoms were reported regarding the EENT system. Derm: Skin is intact, Skin is dry, Skin is normal, Skin temperature is warm. Musculoskeletal: Circulation, motion, and sensation intact. Range of motion: intact in all extremities. 09:12 Reassessment: Patient appears in no apparent distress at this time. Patient and/or jd3 family updated on plan of care and expected duration. Pain level reassessed. Patient is alert, oriented x 3, equal unlabored respirations, skin warm/dry/pink. 09:56 Reassessment: pt requesting more nausea medicine, Dr. Palm notified, order for iw repeat zofran given now, pt requesting a few Ativan pills , I advised pt that she will go home with hydroxizine and follow up with psychiatrist referred to on discharge instructions. Vital Signs: 06:55 BP 149 / 91; Pulse 81; Resp 18; Temp 99.3(O); Pulse Ox 98% on R/A; Weight 90.26 kg (R); lp1 Height 5 ft. 2 in. (157.48 cm); Pain 10/10; 07:28 BP 121 / 77; Pulse 72; Resp 16 S; Pulse Ox 100% on R/A; jd3 09:12 BP 121 / 76; Pulse 70; Resp 17 S; Pulse Ox 96% on R/A; jd3 06:55 Body Mass Index 36.40 (90.26 kg, 157.48 cm) lp1 ED Course: 06:52 Patient arrived in ED. mw2 06:57 Triage completed. lp1 06:58 Patient has correct armband on for positive identification. Bed in low position. Call fu light in reach. Side rails up X2. Pulse ox on. NIBP on. Warm blanket given. 06:59 Arm band placed on right wrist. lp1 07:07 Filiberto Honeycutt RN is Primary Nurse. fu 07:12 Bill Palm MD is Attending Physician. jo 08:04 Primary Nurse role handed off by Filiberto Honeycutt RN jd3 08:04 Beka Wright RN is Primary Nurse. jd3 09:06 Chilo Smith MD is Referral Physician. jo 09:57 No provider procedures requiring assistance completed. Patient did not have IV access iw during this emergency room visit. Administered Medications: 08:03 Drug: Ativan (LORazepam) 2 mg Route: IM; Site: right deltoid; jd3 09:58 Follow up: Response: No adverse reaction iw 08:43 Drug: Zofran (Ondansetron) 4 mg Route: PO; jd3 09:58 Follow up: Response: No adverse reaction iw 09:52 CANCELLED (Duplicate Order): Zofran (Ondansetron) 4 mg IVP once; over 2 minutes [facility] 09:55 Drug: Ondansetron 4 mg Route: PO; iw 09:58 Follow up: Response: No adverse reaction iw Outcome: 09:06 Discharge ordered by . [facility] 09:57 Discharged to home ambulatory. iw 09:57 Condition: good 09:57 Discharge instructions given to patient, Instructed on discharge instructions, follow up and referral plans. medication usage, Demonstrated understanding of instructions, follow-up care, medications, Prescriptions given X 1. 09:58 Patient left the ED. iw Signatures: Bill Palm MD MD cha Williams, Irene RN JIGNA Lora Lozada RN RN lp1 Beka Wright RN RN [email or web address] Filiberto Honeycutt RN Mitch Castellanos mw2
[2021-04-07 10:03] VITALS: TEMP 99.3
[2021-04-07 10:06] VITALS: BP 121/76; O2SAT 96
== END 2021-04-07 09:58 | disposition home or self-care (01) ==
LOC: ER 06:48
DX: F31.9 Bipolar disorder, unspecified (principal); Z98.82 Breast implant status; Z88.5 Allergy status to narcotic agent; Z88.8 Allergy status to other drugs, medicaments and biological substances
CPT/HCPCS: 36415; 80048; 80076; 80178; 80307; 80320; 80329; 81003; 85025; 85610; 85730; 93005; 96372; 99284

== ENCOUNTER 2021-04-07 15:00 | Emergency (ER) | payer OTHER ==
--- NOTE | 2021-04-07 18:44 | ER ---
Nurse's Notes [facility] Name: Tiffany Quinn Age: 50 yrs Sex: Female : 1970 Arrival Date: 04/07/2021 Time: 15:10 Bed 13 Private MD: Diagnosis: Migraine Presentation: 04/07 15:17 Chief complaint: Patient states: "I was here earlier and they gave me some Xanax and ss Zofran and I think the Zofran made me more nauseous and I have a migraine.". Coronavirus screen: Client denies travel out of the [place] in the last 14 days. Ebola Screen: Patient denies exposure to infectious person. Patient denies travel to an Ebola-affected area in the 21 days before illness onset. Initial Sepsis Screen: Does the patient meet any 2 criteria? No. Patient's initial sepsis screen is negative. Does the patient have a suspected source of infection? No. Patient's initial sepsis screen is negative. Risk Assessment: Do you want to hurt yourself or someone else? Patient reports no desire to harm self or others. Onset of symptoms was April 07, 2021. 15:17 Method Of Arrival: Ambulatory ss 15:17 Acuity: MANUEL 3 ss Historical: - Allergies: 15:21 Haldol; ss 15:21 Pepcid; ss 15:21 Stadol; ss 15:21 Toradol; ss - PMHx: 15:21 ADD/ADHD; Anxiety; Bipolar disorder; Hernia; Migraines; PSYCH PROBLEMS; Schizophrenia; ss unsure if she is; Seizures; - PSHx: 15:21 Cholecystectomy; Hernia repair; breast augmentation; ss - Immunization history:: Adult Immunizations up to date. - Social history:: Smoking status: Patient denies any tobacco usage or history of. Screenin:50 Abuse screen: Denies threats or abuse. Denies injuries from another. Nutritional tr6 screening: No deficits noted. Tuberculosis screening: No symptoms or risk factors identified. Fall Risk None identified. Assessment: 18:49 General: Appears distressed, uncomfortable, unkempt, Behavior is anxious, restless. tr6 Pain: Complains of pain in c/o headache. Neuro: No deficits noted. Cardiovascular: No deficits noted. Respiratory: No deficits noted. GI: No deficits noted. : No deficits noted. EENT: No deficits noted. Derm: No deficits noted. Musculoskeletal: No deficits noted. Vital Signs: 15:17 Pulse 103; Resp 16; Temp 98.1(TE); Pulse Ox 98% on R/A; Weight 87.09 kg; Height 5 ft. 2 ss in. (157.48 cm); Pain 10/10; 15:21 BP 124 / 81; ss 15:17 Body Mass Index 35.12 (87.09 kg, 157.48 cm) ss Jovani Coma Score: 19:37 Eye Response: spontaneous(4). Verbal Response: oriented(5). Motor Response: obeys kb commands(6). Total: 15. ED Course: 15:10 Patient arrived in ED. ds1 15:20 Triage completed. ss 15:21 Arm band placed on right wrist. ss 17:52 Sheri Goodwin RN is Primary Nurse. tr6 17:54 Beatrice Ledezma FNP[facility]C [facility]. kb 17:54 Bill Palm MD is Attending Physician. kb 18:50 Patient has correct armband on for positive identification. Bed in low position. Call tr6 light in reach. Side rails up X 1. Pulse ox on. NIBP on. Door closed. 18:50 No provider procedures requiring assistance completed. Patient did not have IV access tr6 during this emergency room visit. Administered Medications: 18:49 Drug: [place] (HYDROcodone-acetaminophen) (7.5 mg-325 mg) 1 tabs Route: PO; tr6 18:49 Drug: Phenergan (promethazine) 25 mg Route: PO; tr6 Outcome: 18:44 Discharge ordered by . kb 18:50 Discharged to home ambulatory. tr6 18:50 Condition: stable 18:50 Discharge instructions given to patient, Instructed on discharge instructions, follow up and referral plans. medication usage, safety practices, Demonstrated understanding of instructions, follow-up care, medications, Prescriptions given X 1. 18:51 Patient left the ED. tr6 Signatures: Beatrice Ledezma FNP-C FNP-Neelima Aldrich ds1 Preethi Melendez RN RN Sheri Goodwin RN RN tr6
--- NOTE | 2021-04-07 18:45 | EDPHYS ---
Physician Documentation [facility] Name: Tiffany Quinn Age: 50 yrs Sex: Female : 1970 Arrival Date: 04/07/2021 Time: 15:10 Bed 13 Private MD: ED Physician Bill Palm HPI: 04/07 19:39 This 50 yrs old Female presents to ER via Ambulatory with complaints of kb Headache, Nausea. 19:39 The patient complains of pain to the forehead. The patient describes the headache as kb constant. Onset: The symptoms/episode began/occurred today. Associated signs and symptoms: Pertinent positives: nausea, vomiting. Severity of symptoms: At its worst the pain was moderate, in the emergency department the pain is unchanged. Headache History: The patient has had previous headaches and this one is similar to previous episodes. The symptoms are alleviated by nothing. the symptoms are aggravated by lights. The patient has not experienced similar symptoms in the past. The patient has not recently seen a physician. Pt reports migraine with nausea and vomiting. Was unable to tolerate zofran at home. Requests phenergan and a norco because that is what has helped in the past. Historical: - Allergies: 15:21 Haldol; ss 15:21 Pepcid; ss 15:21 Stadol; ss 15:21 Toradol; ss - PMHx: 15:21 ADD/ADHD; Anxiety; Bipolar disorder; Hernia; Migraines; PSYCH PROBLEMS; Schizophrenia; ss unsure if she is; Seizures; - PSHx: 15:21 Cholecystectomy; Hernia repair; breast augmentation; ss - Immunization history:: Adult Immunizations up to date. - Social history:: Smoking status: Patient denies any tobacco usage or history of. ROS: 19:38 Constitutional: Negative for fever, chills, and weight loss. kb 19:38 Abdomen/GI: Positive for nausea and vomiting, Negative for abdominal pain. 19:38 Neuro: Positive for headache. 19:38 All other systems are negative. Exam: 19:39 Constitutional: This is a well developed, well nourished patient who is awake, alert, kb and in no acute distress. Head/Face: Normocephalic, atraumatic. ENT: Moist Mucous membranes Respiratory: Respirations even and unlabored. No increased work of breathing, no retractions or nasal flaring. Skin: Warm, dry with normal turgor. Normal color. MS/ Extremity: Pulses equal, no cyanosis. Neurovascular intact. Full, normal range of motion. Neuro: Awake and alert, GCS 15, oriented to person, place, time, and situation. Moves all extremities. Normal gait. Psych: Awake, alert, with orientation to person, place and time. Behavior, mood, and affect are within normal limits. Vital Signs: 15:17 Pulse 103; Resp 16; Temp 98.1(TE); Pulse Ox 98% on R/A; Weight 87.09 kg; Height 5 ft. 2 ss in. (157.48 cm); Pain 10/10; 15:21 BP 124 / 81; ss 15:17 Body Mass Index 35.12 (87.09 kg, 157.48 cm) ss Jovani Coma Score: 19:37 Eye Response: spontaneous(4). Verbal Response: oriented(5). Motor Response: obeys kb commands(6). Total: 15. MDM: 17:54 Patient medically screened. kb 19:37 Data reviewed: vital signs, nurses notes. Data interpreted: Pulse oximetry: on room air kb is 98 %. Interpretation: normal. Counseling: I had a detailed discussion with the patient and/or guardian regarding: the historical points, exam findings, and any diagnostic results supporting the discharge/admit diagnosis, the need for outpatient follow up, a family practitioner, to return to the emergency department if symptoms worsen or persist or if there are any questions or concerns that arise at home. Administered Medications: 18:49 Drug: [place] (HYDROcodone-acetaminophen) (7.5 mg-325 mg) 1 tabs Route: PO; tr6 18:49 Drug: Phenergan (promethazine) 25 mg Route: PO; tr6 Disposition: 04/08 07:20 Co-signature as Attending Physician, Bill Palm MD I agree with the assessment and jo plan of care. Disposition: 04/07/21 18:44 Discharged to Home. Impression: Migraine. - Condition is Stable. - Discharge Instructions: Migraine Headache, [id number]. - Prescriptions for promethazine 25 mg Oral Tablet - take 1 tablet by ORAL route every 8 hours As needed; 10 tablet. - Medication Reconciliation Form, Thank You Letter, Antibiotic Education, Prescription Opioid Use form. - Follow up: Emergency Department; When: As needed; Reason: Worsening of condition. Follow up: Private Physician; When: 2 - 3 days; Reason: Recheck today's complaints, Continuance of care, Re-evaluation by your physician. Signatures: Beatrice Ledezma, DAVID RIVERS-Bill Luis MD MD cha Smirch, Shelby, JIGNA RN ss Sheri Goodwin RN RN tr6 Corrections: (The following items were deleted from the chart) 04/07 18:51 18:44 04/07/2021 18:44 Discharged to Home. Impression: Migraine. Condition is Stable. tr6 Forms are Medication Reconciliation Form, Thank You Letter, Antibiotic Education, Prescription Opioid Use. Follow up: Emergency Department; When: As needed; Reason: Worsening of condition. Follow up: Private Physician; When: 2 - 3 days; Reason: Recheck today's complaints, Continuance of care, Re-evaluation by your physician. kb
[2021-04-07] MEDS ORDERED: HYDROCODONE/APAP 7.5/325 MG TAB ONE (19:04)
[2021-04-07] MEDS ORDERED: PROMETHAZINE 25 MG TABLET ONE (19:05)
[2021-04-07 19:09] VITALS: TEMP 98.1; O2SAT 98
[2021-04-07 19:10] VITALS: BP 124/81
== END 2021-04-07 18:51 | disposition home or self-care (01) ==
LOC: ER 15:00
DX: G43.909 Migraine, unspecified, not intractable, without status migrainosus (principal); Z98.82 Breast implant status; Z88.5 Allergy status to narcotic agent; Z88.8 Allergy status to other drugs, medicaments and biological substances
CPT/HCPCS: 99283; Q0169

== ENCOUNTER 2021-04-08 05:13 | Emergency (ER) | payer OTHER ==
--- NOTE | 2021-04-08 06:01 | EDPHYS ---
Physician Documentation [facility] Name: Tiffany Quinn Age: 50 yrs Sex: Female : 1970 Arrival Date: 04/08/2021 Time: 05:16 Bed 7 Private MD: ED Physician Ney Woody HPI: 04/08 06:06 This 50 yrs old Female presents to ER via EMS with complaints of ANXIETY. tw4 06:06 The patient presents to the emergency department with anxiety. Onset: The tw4 symptoms/episode began/occurred just prior to arrival. Past psychiatric history:. Associated signs and symptoms: Pertinent positives; headache. Severity of symptoms: At their worst the symptoms were mild in the emergency department the symptoms are unchanged. The patient has not experienced similar symptoms in the past. The patient has been recently seen at the [facility] Emergency Department, yesterday, for similar complaints. Historical: - Allergies: 05:22 Toradol; jb4 05:22 Stadol; jb4 05:22 Pepcid; jb4 05:22 Haldol; jb4 - Home Meds: 05:22 Vraylar Oral [Active]; Milmay Carbonate Oral [Active]; Hydroxyzine Oral [Active]; jb4 Zofran Oral [Active]; Fioricet Oral [Active]; Phenergan Oral 25 mg [Active]; - PMHx: 05:22 ADD/ADHD; Anxiety; Bipolar disorder; Hernia; Migraines; PSYCH PROBLEMS; Schizophrenia; jb4 unsure if she is; Seizures; - PSHx: 05:22 Cholecystectomy; Hernia repair; breast augmentation; jb4 - Immunization history:: Adult Immunizations up to date. - Social history:: Smoking status: Patient denies any tobacco usage or history of. Patient/guardian denies using alcohol, street drugs. ROS: 06:06 Constitutional: Negative for fever, chills, and weight loss, Eyes: Negative for injury, tw4 pain, redness, and discharge, Cardiovascular: Negative for chest pain, palpitations, and edema, Respiratory: Negative for shortness of breath, cough, wheezing, and pleuritic chest pain, Abdomen/GI: Negative for abdominal pain, nausea, vomiting, diarrhea, and constipation, Back: Negative for injury and pain, MS/Extremity: Negative for injury and deformity, Skin: Negative for injury, rash, and discoloration. 06:06 Psych: Positive for anxiety, Negative for depression, drug dependence, alcohol dependence, auditory hallucinations, visual hallucinations, homicidal ideation, insomnia, suicide gesture. Exam: 06:06 Constitutional: This is a well developed, well nourished patient who is awake, alert, tw4 and in no acute distress. Head/Face: Normocephalic, atraumatic. Chest/axilla: Normal chest wall appearance and motion. Nontender with no deformity. No lesions are appreciated. Cardiovascular: Regular rate and rhythm with a normal S1 and S2. No gallops, murmurs, or rubs. Normal PMI, no JVD. No pulse deficits. Respiratory: Lungs have equal breath sounds bilaterally, clear to auscultation and percussion. No rales, rhonchi or wheezes noted. No increased work of breathing, no retractions or nasal flaring. Abdomen/GI: Soft, non-tender, with normal bowel sounds. No distension or tympany. No guarding or rebound. No evidence of tenderness throughout. Back: No spinal tenderness. No costovertebral tenderness. Full range of motion. Skin: Warm, dry with normal turgor. Normal color with no rashes, no lesions, and no evidence of cellulitis. MS/ Extremity: Pulses equal, no cyanosis. Neurovascular intact. Full, normal range of motion. Neuro: Awake and alert, GCS 15, oriented to person, place, time, and situation. Cranial nerves II-XII grossly intact. Motor strength 5/5 in all extremities. Sensory grossly intact. Cerebellar exam normal. Normal gait. Vital Signs: 05:17 BP 126 / 85; Pulse 71; Resp 16; Temp 98.3(O); Pulse Ox 95% on R/A; Weight 87.09 kg (R); jb4 Height 5 ft. 2 in. (157.48 cm); Pain 10/10; 05:17 Body Mass Index 35.12 (87.09 kg, 157.48 cm) jb4 MDM: 05:36 Medical screen evaluation completed. [facility] emergency medical condition absent. tw4 06:00 Patient medically screened. tw4 06:06 Data reviewed: vital signs, nurses notes. Data interpreted: Pulse oximetry: tw4 Interpretation: normal. Special discussion: I discussed with the patient/guardian in detail that at this point there is no indication for admission to the hospital. It is understood, however, that if the symptoms persist or worsen the patient needs to return immediately for re-evaluation. Administered Medications: No medications were administered Disposition: 04/08/21 06:00 Discharged to Home. Impression: Nausea. - Condition is Stable. - Discharge Instructions: Nausea, Adult. - Medication Reconciliation Form, Thank You Letter, Antibiotic Education, Prescription Opioid Use form. - Follow up: Private Physician; When: Upon discharge from the Emergency Department; Reason: Recheck today's complaints, Continuance of care, Re-evaluation by your physician. - Problem is an ongoing problem. - Symptoms have improved. Signatures: Carlos Jewell RN RN jb4 Ney Woody MD MD tw4 Corrections: (The following items were deleted from the chart) 06:01 06:00 04/08/2021 06:00 Discharged to Home. Impression: Nausea. Condition is Stable. jb4 Forms are Medication Reconciliation Form, Thank You Letter, Antibiotic Education, Prescription Opioid Use. Follow up: Private Physician; When: Upon discharge from the Emergency Department; Reason: Recheck today's complaints, Continuance of care, Re-evaluation by your physician. Problem is an ongoing problem. Symptoms have improved. tw4
--- NOTE | 2021-04-08 06:01 | ER ---
Nurse's Notes [facility] Name: Tiffany Quinn Age: 50 yrs Sex: Female : 1970 Arrival Date: 04/08/2021 Time: 05:16 Bed 7 Private MD: Diagnosis: Nausea Presentation: 04/08 05:17 Chief complaint: EMS states: Pt has been here daily for the past 5 days due to anxiety jb4 and nausea. tonight is reporting nausea and a migraine headache. Reports that she was given a prescription for Phenergan for 25mg and that the dosage was not high enough and she stayed sick at home. Coronavirus screen: Client denies travel out of the [place] in the last 14 days. At this time, the client does not indicate any symptoms associated with coronavirus-19. Ebola Screen: Patient negative for fever greater than or equal to 101.5 degrees Fahrenheit, and additional compatible Ebola Virus Disease symptoms No symptoms or risks identified at this time. Initial Sepsis Screen: Does the patient meet any 2 criteria? No. Patient's initial sepsis screen is negative. Does the patient have a suspected source of infection? No. Patient's initial sepsis screen is negative. Risk Assessment: Do you want to hurt yourself or someone else? Patient reports no desire to harm self or others. Onset of symptoms was April 03, 2021. Transition of care: patient was not received from another setting of care. 05:17 Method Of Arrival: EMS: [facility] 05:17 Acuity: MANUEL 4 jb4 Historical: - Allergies: 05:22 Toradol; jb4 05:22 Stadol; jb4 05:22 Pepcid; jb4 05:22 Haldol; jb4 - Home Meds: 05:22 Vraylar Oral [Active]; [place] Carbonate Oral [Active]; Hydroxyzine Oral [Active]; jb4 Zofran Oral [Active]; Fioricet Oral [Active]; Phenergan Oral 25 mg [Active]; - PMHx: 05:22 ADD/ADHD; Anxiety; Bipolar disorder; Hernia; Migraines; PSYCH PROBLEMS; Schizophrenia; jb4 unsure if she is; Seizures; - PSHx: 05:22 Cholecystectomy; Hernia repair; breast augmentation; jb4 - Immunization history:: Adult Immunizations up to date. - Social history:: Smoking status: Patient denies any tobacco usage or history of. Patient/guardian denies using alcohol, street drugs. Screenin:17 Abuse screen: Denies threats or abuse. Nutritional screening: No deficits noted. jb4 Tuberculosis screening: No symptoms or risk factors identified. Fall Risk None identified. Assessment: 05:17 General: Appears in no apparent distress. uncomfortable, Behavior is calm, cooperative, jb4 appropriate for age. Pain: Complains of pain in headache Pain does not radiate. Pain currently is 10 out of 10 on a pain scale. Neuro: Level of Consciousness is awake, alert, obeys commands, Oriented to person, place, time, situation. Cardiovascular: Patient's skin is warm and dry. Respiratory: Airway is patent Respiratory effort is even, unlabored, Respiratory pattern is regular, symmetrical. GI: No signs and/or symptoms were reported involving the gastrointestinal system. : No signs and/or symptoms were reported regarding the genitourinary system. EENT: No signs and/or symptoms were reported regarding the EENT system. Derm: Skin is intact, Skin is pink, warm \T\ dry. Musculoskeletal: Circulation, motion, and sensation intact. Range of motion: intact in all extremities. 05:58 Reassessment: Patient appears in no apparent distress at this time. Patient and/or jb4 family updated on plan of care and expected duration. Pain level reassessed. Patient is alert, oriented x 3, equal unlabored respirations, skin warm/dry/pink. Vital Signs: 05:17 BP 126 / 85; Pulse 71; Resp 16; Temp 98.3(O); Pulse Ox 95% on R/A; Weight 87.09 kg (R); jb4 Height 5 ft. 2 in. (157.48 cm); Pain 10/10; 05:17 Body Mass Index 35.12 (87.09 kg, 157.48 cm) 4 ED Course: 05:16 Patient arrived in ED. jm8 05:17 Carlos Jewell, RN is Primary Nurse. 4 05:17 Patient has correct armband on for positive identification. Bed in low position. Call 4 light in reach. Side rails up X 1. Pulse ox on. NIBP on. 05:21 Triage completed. jb4 05:22 Arm band placed on right wrist. jb4 05:35 Annalise, Ney, MD is Attending Physician. tw4 05:59 No provider procedures requiring assistance completed. Patient did not have IV access jb4 during this emergency room visit. Administered Medications: No medications were administered Outcome: 05:59 Medical screen evaluation completed per provider. jb4 05:59 Condition: stable 05:59 Following a medical screening exam, the patient was provided information regarding alternative care sites and resources available per registration personnel. 06:00 Discharge ordered by . tw4 06:01 Patient left the ED. jb4 Signatures: Carlos Jewell, RN RN jb4 Ney Woody MD MD tw4 Reji Coronado RN RN [id number]
[2021-04-08 06:06] VITALS: BP 126/85; TEMP 98.3; O2SAT 95
== END 2021-04-08 06:01 | disposition home or self-care (01) ==
LOC: ER 05:13
DX: R11.0 Nausea (principal); R51.9 Headache, unspecified; F20.9 Schizophrenia, unspecified; Z88.5 Allergy status to narcotic agent; Z88.8 Allergy status to other drugs, medicaments and biological substances; Z98.82 Breast implant status
CPT/HCPCS: 99283

== ENCOUNTER 2021-06-03 17:01 | Emergency (ER) | payer OTHER ==
--- OUTSIDE RECORDS SUMMARY | 2021-06-03 17:05 | XMS REPORT | Continuity of Care Document ---
:1970 Author Organization [facility] t Address [address] [place] [address] Care Team Providers Name Role Phone UNKNOWN [...] oria 01-21 01:52:00 l LOW PB 00:00: Gem 00 Active 01/21/2019 [facility] INFECTIOUS Diagnosis Active 2019-02-06 Memoria GASTROENTE 01-21 08:58:00 l RITIS AND 00:00: Yonis COLITIS INFECTIOUS 00 GASTROENTE RITIS AND COLITIS Active 01/21/2019 [facility] INFECTIOUS Diagnosis Active 2019-02-06 Memoria GASTROENTE 08:58:00 l RITIS AND Gem COLITIS, INFECTIOUS GASTROENTE RITIS AND COLITIS, Active [facility] Allergies, Adverse Reactions, Alerts Allergy Allergy Status Severity Reaction(s) Onset Inactive Treating Comm ents Source Name Type Date Date Clinician Phenkenney Phenerga Active Wicho Somers Social History Smoking Status Start Date Stop Date Source Social History 2019-01-22 05:00:12 Jeanne [facility] Medications Ordered Filled Start Stop Current [...] 4-04 tab, PO, l oral tablet 17:35: [id number], X Gem 00 4 day, # 8 tab, 0 Refill(s) Ondansetron Yes 4 mg = 1 Me moria 4 MG Oral 4-04 tab, PO, l Tablet 17:35: Q6H, PRN Gem [Zofran] 00 Nausea/Vom iting, # 20 tab, [...] s with feeding tube less than 14 [place]ovan (Dobhoff, J-tube etc) and pediatric and patients. Strattera No 0.5 mg/kg, Me moria 01-24 Route: PO, l 14:00: QAM, Yonis 00 Dosing Weight 75, kg, Start date: 01/24/19 9:00:00 CDT, Duration: 30 day, Stop date: 02/22/19 9:00:00 CDT lithium No Notes: Do Memor ia 01-24 not crush l 02:00: or chew. (Same as: Eskalith-C R) Risperdal No Notes: Memori a 01-23 (Same as: l 22:00: Risperdal) Gem 00 Strattera No 1 mg, Memoria 01-23 Route: PO, l 22:00: QPM, Gem 00 Dosing Weight 75, kg, Start date: [...] ia 01-23 (Same As: l 18:00: KlonoPIN) Gem 00 Flagyl No Notes: Memoria 01-23 (Same as: l 15:00: Flagyl) Take with food/ avoid alcohol Cipro No Notes: May Memori a - interfere l 15:00: w/enteral Yonis 00 feedings [...] MG 01-23 PO, l Oral Tablet 14:20: [id number], 0 Yonis [Cipro] 00 Refill(s) Potassium No [...] s with feeding tube less than 14 Moldovan (Dobhoff, J-tube etc) and pediatric and patients. [...] doni 01-22 (Same as: l 09:47: Zofran) Gem 00 MEDICATION WASTE Product Size: 4 mg [...] Memoria -31 (Same as: l 08:56: Zofran) Yonis MEDICATION WASTE Product Size: 4 [...] 3-31 (Same as: l 06:10: Zosyn) Yonis Dosing based on Piperacill in component MEDICATION [...] Memoria 01-22 (Same as: l 04:52: Zofran) Gem MEDICATION WASTE Product Size: 4 mg Product Wasted: ___ mg Saline No Notes: Memoria Flush 0.9% 01-22 Same as: l 04:52: BD Gem Posiflush Sterile NS (Bolus) No 1,000 mL, Me moria IV 01-22 1,000 l 04:51: ml/hr, Yonis Infuse Over: 1 hr, Route: IV, 1,000, Drug form: INJ, ONCE, Priority: STAT, Dosing Weight 75.994 kg, Start date: 01/21/19 23:51:00 CDT, Stop date: 01/21/19 23:51:00 CDT Vital Signs Vital Name Observation Time Observation Value Comments Source Temperature Oral (F) 2019-01-28 01:16:00 98.6 F [facility] Systolic (mm Hg) 2019-01-28 01:16:00 Estrada rial Gem Diastolic (mm Hg) 2019-01-28 01:16:00 Mem orial Yonis Heart Rate 2019-01-28 01:16:00 [facility] Respitory Rate 2019-01-28 01:16:00 Memori al Yonis Systolic (mm Hg) 2019-01-27 20:42:00 Estrada rial Gem Diastolic (mm Hg) 2019-01-27 20:42:00 Mem orial Yonis Heart Rate 2019-01-27 20:42:00 [facility] Respitory Rate 2019-01-27 20:42:00 Memori al Yonis Temperature Oral (F) 2019-01-27 20:42:00 98.5 F [facility] Systolic (mm Hg) 2019-01-27 17:00:00 Estrada rial Yonis Diastolic (mm Hg) 2019-01-27 17:00:00 Mem orial Yonis Temperature Oral (F) 2019-01-27 17:00:00 98.5 F [facility] Heart Rate 2019-01-27 17:00:00 [facility] Respitory Rate 2019-01-27 17:00:00 Wicho Gale Height 2019-01-22 14:35:00 157.48 cm [facility] BMI Calculated 2019-01-22 14:35:00 Memfermin al Gem Weight 2019-01-22 14:35:00 [facility] Weight 2019-01-22 04:34:00 [facility] Procedures This patient has no known procedures. Encounters Start End Encounter Admission Attending Care Care Encounter Source Date/Time Date/Time Type Type Clinicians Facility Department ID 2019-01-22 Inpatient E [facility] [id number] [facility] W 04:39:00 2020-09-30 2020-09-30 Emergency [facility] [id number] 07:22:00 08:18:00 Gio Jimenez [id number] [place] [id number] [place] [id number] 2020-03-04 2020-03-14 Inpatient 3 [facility] [id number] 15:38:00 15:25:00 [facility] 2019-01-22 2019-01-28 Inpatient [facility]ly [facility] [id number] Memoria 04:33:00 04:40:00 r Gem 00 l [facility] 2019-01-21 2019-01-27 Outpatient Dav [facility] [id number] 23:33:00 23:40:00 Ed 00 2018-02-21 2018-02-20 Inpatient E [facility] [id number] 14:48:00 13:18:00 [facility] Results Test Description Test Time Test [...] = Expiration Dt) 10-24-2020 N Thyroid Stimulating Siowrwn5739-37-68 08:35:16 Test Item Value Reference Range Interpretation Comments TSH (test code = TSH) 1.170 mIU/mL 0.270-4.200 Lipid Gtuyh1710-82-56 08:21:19 Test Item Value Reference Range Interpretation Comments Cholesterol Total 254 mg/dL 0-200 H RISK OF HE ART (test code = DISEASEPublishe d by Cholesterol Total) [place] [employer] Cathie lyte Optimal Borderl ine [...] calculation is LDL/HDL Ratio=L DL Calc/HDL Chol EZNKSXIGSRZN5412-45-62 08:24:008.6[facility] MjtwbkgSXGNGBYKXGCI5159-26-05 08:24:44881Kvrunmqr MtigacqZZUSNTSRRVRE9169-58-39 08:24:0027[facility] CMTSNOFJTOWI2719-08-07 08:24:02321Pycinjuz UyitnxgSHILEBHLLAVZ6158-76-65 08:24:003.6[facility] SawxkhjXTSDGPTBTMLS2174-37-04 08:24:000.70[facility] MRTAKWIDWZQT4296-93-62 08:24:008.4[facility] OcdkvayMWXMKESRVQYU2912-71-74 08:24:46763Jbgeomej AsvbpzeNQTQVAWNPNAZ9399-61-83 08:24:0086[facility] Gem WAUXLQVUQZIP4783-62-04 08:24:006[facility] QlcjaqjAIEJRLYIIE7991-28-34 08:24:00 11.6[facility] MxhmuoiHIDZUEOVYB7046-36-65 08:24:003.78[facility]annHEMATOLOGY 2019-01-26 08:24:0013.3[facility] NfawwkjZLNIJCLPZL4573-78-64 08:24:0034.0[facility] NqybkrjGMETEUQRKJ5095-48-47 08:24:006.3[facility] NhxeevgCNGHWSDNUL8500-16-13 08:24:00 Test Item Value Reference Range Interpretation Comments MCH (test code = MCH) 30.7 pg 27.0-31.0 [facility] GfjnyzwJTPWAZJTNI8837-77-72 08:24:0090.3[facility] HermannHEMATOLOGY 2019-01-26 08:24:0034.2[facility] LowpnisLRCJSBTCQP4074-19-82 08:24:94259Mrbmerid UfairgcSZZEXQTGJD5561-09-43 08:24:007.5[facility] HermannCHEM NLIWG8436-48-80 09:14:52599Jfzcgfql HermannCHEM QTUUN6863-96-66 09:14:008.5[facility] HermannCHEM WRJBT7814-71-85 09:14:0013.3[facility] HermannCHEM LQRDP3431-77-34 09:14:0024 [facility]annCHEM JMCST5905-47-70 09:14:17783Smpbgtyv HermannCHEM PANEL 2019-01-25 09:14:0081[facility] HermannCHEM LESDE7855-42-51 09:14:002[facility] HermannCHEM HPYVK9312-46-67 09:14:003.3[facility] HermannCHEM KHFXQ1996-89-74 09:14:000.60[facility] HermannCHEM WARIB2222-99-26 09:14:52763Cyxeffqb Yonis MOLECULAR BTJWBXAEHQ3063-59-93 16:22:00Negative (01/23/19 11:22 AM)[facility] HermannCHEM YDFEA3588-70-17 15:42:002.76[facility] HermannCHEM DILXZ5415-39-43 12:32:000.9[facility] HermannCHEM MMDUY4126-76-36 10:50:002.0[facility] HermannCHEM GHTQE3284-74-89 10:50:20407Xbimnhzd HermannCHEM BVGJV5645-29-74 10:50:0023 [facility]annCHEM CAPWW3398-33-27 10:50:34673Boeytnld HermannCHEM PANEL 2019-01-23 10:50:003.1[facility] HermannCHEM LQHVE5621-67-61 10:50:41090Zxmvarit HermannCHEM MZFXC3152-65-67 10:50:005[facility] HermannCHEM FXTNQ0038-91-18 10:50:000.50[facility] HermannCHEM MFRAX3949-33-58 10:50:007.8[facility] HermannCHEM AWKUY1729-92-04 10:50:0083[facility] HermannCHEM YUMXM5057-59-83 10:50:0010.1 [facility] PfvannkXUOBTTAAVX5010-23-87 10:50:000.2[facility] HermannHEMATOLOGY 2019-01-23 10:50:000.8[facility] OohuzagAKZNSHOXPC6023-40-39 10:50:005.5[facility] QnsecwmQFXXLDWZBO6428-08-50 10:50:002.2[facility] NkybtooMGAVDROKZJ5696-62-01 10:50:000.1[facility] JjzootjSLDGRRSHZE3218-59-67 10:50:0063.6[facility] EYBEHWVNCF0214-50-14 10:50:008.9[facility] XmetpxwRXNYKCTKHY0207-42-50 10:50:002.3 [facility] KvodrluUNNRQBDTZL7241-36-26 10:50:00Normal (01/23/19 5:50 AM)[facility] WsyyyahAROJCQFGFV0238-73-18 10:50:00Normal (01/23/19 5:50 AM)[facility] Gem KPDKKGKSOA3991-94-17 10:50:0025.1[facility] McigxhgWQCNVNSXFJ8291-02-42 10:50:00 13.1[facility] LcoaulsFAXPZZCHYQ8285-37-62 10:50:03218Qkvydhuz HermannHEMATOLOGY 2019-01-23 10:50:007.7[facility] GvfdwrfMWEJQIHYKT1108-86-42 10:50:008.6[facility] VokcclvXRBYDYBFZX1370-98-30 10:50:0010.0[facility] ZfvmqalJCWJXBHWCB5379-34-81 10:50:0034.6[facility] AscqhwiFZXBNGPDKR4298-58-18 10:50:0028.7[facility] YCRWOVCVHK0316-19-11 10:50:0087.8[facility] EzzicuiNTSMQHJMPQ1587-50-37 10:50:00 Test Item Value Reference Range Interpretation Comments MCH (test code = MCH) 30.4 pg 27.0-31.0 [facility] DmidxcyOLOHJQHPXP4972-18-45 10:50:003.27[facility] HermannCHEM PANEL 2019-01-22 11:32:002.4[facility] HermannCHEM DMLSS5575-20-42 09:04:003.0[facility] HermannURINE AND CHSVN9085-11-08 07:14:00 Test Item Value Reference Range Interpretation Comments UA Spec Grav (test code = UA Spec 1.014 1 Grav) [facility]ann[facility] AND ZPZXX3812-03-19 07:14:00 Test Item Value Reference Range Interpretation Comments UA pH (test code = UA pH) 6.0 1 5.0-8.0 [facility] AND NLSBW2200-22-60 07:14:00Negative (01/22/19 2:14 AM) [facility] FGSVL8806-85-83 07:14:00Negative *NA*(01/22/19 2:14 AM) [facility] CEKPZ8911-41-37 07:14:00Negative *NA*(01/22/19 2:14 AM) [facility] HYHKW2573-43-27 07:14:00Negative *NA*(01/22/19 2:14 AM) [facility] GJBJU7496-96-17 07:14:00Negative (01/22/19 2:14 AM) [facility] SENLZ1065-52-87 07:14:00Negative (01/22/19 2:14 AM) [facility] MHCTN6241-48-08 07:14:00Negative (01/22/19 2:14 AM) [facility] JAOUX3696-54-53 07:14:00<1[facility] AND XFPUJ1173-10-78 07:14:0025[facility]annUR[facility] AND SCTEZ9014-41-82 07:14:002 [facility] AND XNRRR0535-89-28 07:14:00Light Yellow *NA*(01/22/19 2:14 AM)[facility] AND VTOEL2999-42-74 07:14:00Clear (01/22/19 2:14 AM) [facility] SpbuedwMAHKY6185-46-31 05:16:000.90[facility] KtcktsfKMNFWVWSKQ8820-38-63 05:01:00 Test Item Value Reference Range Interpretation Comments PT (test code = PT) 12.6 s 12.0-14.7 [facility] YzwnegmDJLBKEULYP9592-02-12 05:01:00 Test Item Value Reference Range Interpretation Comments PTT (test code = PTT) 25.9 s 22.9-35.8 [facility]BL[facility]OD BANK RAXYGZZ9908-54-96 05:01:00Negative (01/22/19 12:01 AM) [facility] HermannCARDIAC VSRBPSY1868-94-40 05:01:00<0.02[facility] CARDIAC QRUAPBJ6498-52-92 05:01:0049[facility] HermannCHEM MYPFL5035-95-23 05:01:000.6[facility] HermannCHEM OHFSL9196-41-65 05:01:81233Qdpekxwi HermannCHEM FQDVK8446-07-49 05:01:004.0[facility] HermannCHEM EDYWS2928-32-98 05:01:0017 [facility] HermannCHEM XWYEG4502-15-12 05:01:0025[facility] HermannCHEM PANEL 2019-01-22 05:01:008.1[facility] HermannCHEM IXHYF0644-21-80 05:01:00 Test Item Value Reference Range Interpretation Comments B/C Ratio (test code = B/C Ratio) 20 1 6-25 [facility]annCHEM LADTV9430-50-36 05:01:00 Test Item Value Reference Range Interpretation Comments A/G Ratio (test code = A/G Ratio) 1.0 1 0.7-1.6 [facility]annCHEM OFRXE7337-73-06 05:01:004.1[facility] HermannCHEM PANEL 2019-01-22 05:01:006.90[facility] NbfgwatKMOHDVVNPCHLJ0739-40-37 05:01:00Negative *NA*(01/22/19 12:01 AM)[facility] RgboqryCMSJXMQVNX4345-21-40 05:01:000.1[facility] LquyrufBRHDTTHDBA6712-72-48 05:01:000.7[facility] SciyiqgPIYYNKVPIG8432-02-94 05:01:000.0[facility] FnscfqbXDZACUBERL1875-79-55 05:01:000.0[facility] Gem FILAEUAQTX9949-72-73 05:01:000.9[facility] DhgnwzxJGNGJHYAKA2943-24-07 05:01:008.6 [facility] YmiknivVAHFUVJRAB4768-89-79 05:01:000.6[facility] HermannHEMATOLOGY 2019-01-22 05:01:0086.5[facility] QcfaudlMYHXUNRLMA5894-07-53 05:01:005.7[facility] ZwqbbnnPEAANTQYMY4759-83-68 05:01:006.9[facility] MsngfeiXMSAEOOOWJ1070-69-61 05:01:009.9[facility] FkgleaxRGJINNAKCE3819-92-83 05:01:0032.8[facility] Gem PYOKVABMBA0262-34-10 05:01:0013.6[facility] HmjdhadDKBASOEYAX3792-84-34 05:01:00 443[facility] EedbissQLLGTNNGPW9394-83-24 05:01:007.3[facility] HermannHEMATOLOGY 2019-01-22 05:01:0014.0[facility] CvsybftAFUOIZTWBR5368-75-71 05:01:004.85[facility] HgsawrmGKGNUBUMQN6351-81-47 05:01:0042.7[facility] CenterFeabipjMRXQZCADCI4699-37-23 05:01:00 Test Item Value Reference Range Interpretation Comments MCH (test code = MCH) 29.0 pg 27.0-31.0 [facility]EifshycNPGQPOJBTQ3763-76-29 05:01:0088.2[facility] 2019-01-22 05:01:00 Test Item Value Reference Range Interpretation Comments INR (test code = INR) 0.96 1 0.85-1.17 [facility]EqnrifaNMP2X8155-07-84 14:36:00 Test Item Value Reference Range Interpretation [...] 0.00-0.01 N code = ETOHU) Comprehensive Metabolic Olarl3928-46-56 14:36:00 Test Item Value Reference Range Interpretation [...] the National Kidney Foundation,http ://nkd ep.nih.gov Urinalysis Dvlmlwrq4206-08-68 14:32:00 Test Item Value Reference Range Interpretation Comments Color (test code = COLOR) Yellow Yellow,Straw,Pl N yellow Clarity (test code = Clear Clear N CLAR) Specific [place] (test 1.024 1.001-1.035 N code = SPGR) [...] code = Few /HPF BACT) CBC with Glfjunehjdqd2991-29-50 14:21:00 Test Item Value Reference Range Interpretation [...] code = ALYMPH) 3.0 K/cumm 0.5-4.6 N [place] Abs (test code = AMONO) 0.5 K/cumm 0.0-1.2 N Eos Abs (test code = AEOS) 0.19 K/cumm 0.00-0.74 N Baso Abs (test code = ABASO) 0.1 K/cumm 0.00-0.21 N
[2021-06-03 20:52] LABS: Absolute Lymphocytes (CBC) 2.4 K/uL (0.7-4.9); Basophils % 0.9 % (0-1.3); Hematocrit 36.7 % (36.0-45.0); Lymphocytes % 21.6 % (15.3-44.8); MPV 7.3 fL (7.6-11.3)
--- NOTE | 2021-06-03 20:57 | RAD REPORT ---
EXAM DESCRIPTION: RAD - Chest Single View - 06/03/2021 8:44 pm CLINICAL HISTORY: ABDOMINAL DISTENTION Chest pain. COMPARISON: Chest Single View dated 10/16/2019; Chest Single View dated 02/14/2019; Chest Single View dated 09/24/2017; CHEST SINGLE VIEW dated 06/29/2012 FINDINGS: Portable technique limits examination quality. The lungs are grossly clear. The heart is normal in size. No displaced fractures. IMPRESSION: No acute intrathoracic process suspected.
[2021-06-03 21:05] LABS: ALT/SGPT 17 U/L (12-78); AST/SGOT 17 U/L (15-37); Albumin 3.8 g/dL (3.4-5.0); Alkaline Phosphatase 94 U/L (45-117); BUN Blood Urea Nitrogen 8 mg/dL (7-18); Bicarbonate 22 mmol/L (21-32); Bilirubin Direct < 0.1 mg/dL (0-0.2); Bilirubin Total 0.3 mg/dL (0.2-1.0); Glucose Level 96 mg/dL (74-106); Lipase 91 U/L (73-393); Potassium 3.8 mmol/L (3.5-5.1); Protein, Total 7.6 g/dL (6.4-8.2); Sodium Level 140 mmol/L (136-145)
[2021-06-03] MEDS ORDERED: CEFTRIAXONE/SWI 1gm 1 GM/10 ML SYR ONE (21:10)
[2021-06-03] MEDS ORDERED: NA CHLORIDE 0.9% 1,000 ML ONE (21:10)
--- NOTE | 2021-06-03 21:35 | RAD REPORT ---
EXAM DESCRIPTION: CTAbdomen Pelvis W Contrast - 06/03/2021 9:24 pm CLINICAL HISTORY: Abdominal pain. ABD PAIN COMPARISON: No comparisons TECHNIQUE: Biphasic CT imaging of the abdomen and pelvis was performed with 100 ml non-ionic IV cont rast. All CT scans are performed using dose optimization technique as appropriate and may include automated exposure control or mA/KV adjustment according to patient size. FINDINGS: Mild linear subsegmental atelectasis is present in both lung bases. The liver, spleen, pancreas, adrenal glands and kidneys are within normal limits. Cholecystectomy cli ps are seen. No bowel obstruction, free air, free fluid or abscess. The appendix is normal. No evidence of signif icant lymphadenopathy. Mild lumbosacral degenerative changes are present. IMPRESSION: No acute intra-abdominal or pelvic finding.
--- NOTE | 2021-06-03 22:21 | EDPHYS ---
Physician Documentation [facility] Name: Tiffany Quinn Age: 50 yrs Sex: Female : 1970 Arrival Date: 06/03/2021 Time: 17:06 Bed 10 Private MD: JOHN Physician Bill Palm HPI: 06/03 22:16 This 50 yrs old Female presents to ER via Ambulatory with complaints of jo Vomiting, Anxiety, Bloody Stools. 22:16 The patient presents to the emergency department with nausea, vomiting, that is jo intermittent, abdominal pain, of the right upper quadrant, left upper quadrant, right lower quadrant and left lower quadrant. Onset: The symptoms/episode began/occurred 2 day(s) ago. Possible causes: unknown. The symptoms are aggravated by nothing. The symptoms are alleviated by nothing. Associated signs and symptoms: Pertinent positives: abdominal pain, nausea, vomiting. Severity of symptoms: At their worst the symptoms were mild in the emergency department the symptoms are unchanged. The patient has experienced similar episodes in the past, several times. Historical: - Allergies: 18:53 Haldol; kg 18:53 Pepcid; kg 18:53 Stadol; kg 18:53 Toradol; kg 18:53 Reglan; kg - Home Meds: 18:53 Vraylar Oral [Active]; Forbes Carbonate Oral 1 cap [Active]; kg - PMHx: 18:53 ADD/ADHD; Anxiety; Bipolar disorder; Hernia; Migraines; PSYCH PROBLEMS; Schizophrenia; kg unsure if she is; Seizures; - PSHx: 18:53 Cholecystectomy; Hiatal hernia; Hernia; Breast sx x 2; kg - Immunization history:: Adult Immunizations not up to date, Client reports receiving the 2nd dose of the Covid vaccine, Date received: March 27, 2021 Client reports receiving the 1st dose of the Covid vaccine, February 28, 2021. - Social history:: Smoking status: Patient/guardian denies using tobacco, the patient reports quitting approximately 3 years ago. - Family history:: not pertinent. ROS: 22:16 Constitutional: Negative for fever, chills, and weight loss, Eyes: Negative for injury, jo pain, redness, and discharge, ENT: Negative for injury, pain, and discharge, Neck: Negative for injury, pain, and swelling, Cardiovascular: Negative for chest pain, palpitations, and edema, Respiratory: Negative for shortness of breath, cough, wheezing, and pleuritic chest pain, Back: Negative for injury and pain, : Negative for injury, bleeding, discharge, and swelling, MS/Extremity: Negative for injury and deformity, Skin: Negative for injury, rash, and discoloration, Neuro: Negative for headache, weakness, numbness, tingling, and seizure, Psych: Negative for depression, anxiety, suicide ideation, homicidal ideation, and hallucinations, Allergy/Immunology: Negative for hives, rash, and allergies, Endocrine: Negative for neck swelling, polydipsia, polyuria, polyphagia, and marked weight changes. 22:16 Abdomen/GI: Positive for abdominal pain, nausea and vomiting, rectal bleeding. Exam: 22:16 Constitutional: This is a well developed, well nourished patient who is awake, alert, jo and in no acute distress. Head/Face: Normocephalic, atraumatic. Eyes: Pupils equal round and reactive to light, extra-ocular motions intact. Lids and lashes normal. Conjunctiva and sclera are non-icteric and not injected. Cornea within normal limits. Periorbital areas with no swelling, redness, or edema. ENT: Nares patent. No nasal discharge, no septal abnormalities noted. Tympanic membranes are normal and external auditory canals are clear. Oropharynx with no redness, swelling, or masses, exudates, or evidence of obstruction, uvula midline. Mucous membranes moist. Neck: Trachea midline, no thyromegaly or masses palpated, and no cervical lymphadenopathy. Supple, full range of motion without nuchal rigidity, or vertebral point tenderness. No Meningismus. Chest/axilla: Normal chest wall appearance and motion. Nontender with no deformity. No lesions are appreciated. Cardiovascular: Regular rate and rhythm with a normal S1 and S2. No gallops, murmurs, or rubs. Normal PMI, no JVD. No pulse deficits. Respiratory: Lungs have equal breath sounds bilaterally, clear to auscultation and percussion. No rales, rhonchi or wheezes noted. No increased work of breathing, no retractions or nasal flaring. Abdomen/GI: Soft, non-tender, with normal bowel sounds. No distension or tympany. No guarding or rebound. No evidence of tenderness throughout. Back: No spinal tenderness. No costovertebral tenderness. Full range of motion. Female : Normal external genitalia. Skin: Warm, dry with normal turgor. Normal color with no rashes, no lesions, and no evidence of cellulitis. MS/ Extremity: Pulses equal, no cyanosis. Neurovascular intact. Full, normal range of motion. Neuro: Awake and alert, GCS 15, oriented to person, place, time, and situation. Cranial nerves II-XII grossly intact. Motor strength 5/5 in all extremities. Sensory grossly intact. Cerebellar exam normal. Normal gait. Psych: Awake, alert, with orientation to person, place and time. Behavior, mood, and affect are within normal limits. 22:16 Musculoskeletal/extremity: DVT Exam: No signs of deep vein thrombosis. no pain, no swelling, no tenderness, negative Homans' sign noted on exam, no appreciated bluish discoloration, no erythema, no increased warmth. 22:19 Abdomen/GI: Rectal exam: is unremarkable, rectal tone normal, Stool: normal, guaiac jo negative, hemorrhoid(s), are not appreciated, mass, is not appreciated, swelling, is not appreciated, tenderness, is not appreciated, fecal impaction, is not appreciated, Liver: no appreciated palpable abnormalities, Hernia: not appreciated. 22:21 ECG was reviewed by the Attending Physician. [facility] Vital Signs: 18:49 BP 133 / 70; Pulse 90; Resp 20; Temp 98.3(TE); Pulse Ox 99% on R/A; Weight 81.65 kg kg (R); Height 5 ft. 2 in. (157.48 cm) (R); Pain 10/10; 22:47 BP 130 / 82; Pulse 89; Resp 16; lp1 18:49 Body Mass Index 32.92 (81.65 kg, 157.48 cm) kg MDM: 20:29 Patient medically screened. [facility] 22:18 Differential diagnosis: Nonspecific abd pain, gastritis, cholecystitis, pancreatitis, jo appendicitis, diverticulitis, viral gastroenteritis. Data reviewed: vital signs, nurses notes, lab test result(s), EKG, radiologic studies, CT scan, plain films. Data interpreted: process treater: rate is 90 beats/min, rhythm is regular, Pulse oximetry: on room air is 99 %. Test interpretation: by ED physician or midlevel provider: ECG, plain radiologic studies. Counseling: I had a detailed discussion with the patient and/or guardian regarding: the historical points, exam findings, and any diagnostic results supporting the discharge/admit diagnosis, lab results, radiology results. 06/03 18:57 Order name: Basic Metabolic Panel; Complete Time: 22:15 kg 06/03 18:57 Order name: CBC with Diff; Complete Time: 22:15 kg 06/03 18:57 Order name: Hepatic Function; Complete Time: 22:15 kg 06/03 18:57 Order name: Lipase; Complete Time: 22:15 kg 06/03 20:29 Order name: Forbes [facility] 06/03 22:16 Order name: Urine Culture [facility] 06/03 20:29 Order name: Chest Single View XRAY; Complete Time: 22:15 [facility] 06/03 20:29 Order name: CT Abd/Pelvis - IV Contrast Only; Complete Time: 22:15 [facility] 06/03 22:16 Order name: Urine Culture [facility] 06/03 22:23 Order name: Urine Dipstick-Ancillary [facility] 06/03 18:57 Order name: IV Saline Lock; Complete Time: 21:00 kg 06/03 18:57 Order name: Labs collected and sent; Complete Time: 21:00 kg 06/03 20:29 Order name: EKG; Complete Time: 20:29 [facility] 06/03 20:29 Order name: EKG - Nurse/Tech; Complete Time: 20:59 [facility] 06/03 22:16 Order name: Urine Dipstick-Ancillary (obtain specimen); Complete Time: 22:25 jo EC:21 Rate is 81 beats/min. Rhythm is regular. QRS [place] is Normal. ME interval is normal. QRS jo interval is normal. QT interval is normal. No Q waves. T waves are Normal. No ST changes noted. Clinical impression: NSR w/ Non-specific ST/T Changes and No evidence of ischemia. Interpreted by me. Reviewed by me. Administered Medications: 21:47 Drug: NS 0.9% 1000 ml Route: IV; Rate: 1 bolus; Site: right wrist; lp1 22:52 Follow up: IV Status: Completed infusion lp1 22:55 Follow up: IV Intake: 1000ml lp1 21:47 Drug: Rocephin (cefTRIAXone) 1 grams Route: IV; Rate: per protocol; Site: right wrist; lp1 21:58 Follow up: IV Status: Completed infusion; IV Intake: 10ml lp1 21:59 Follow up: Response: No adverse reaction lp1 22:52 Follow up: IV Status: Completed infusion lp1 22:16 Drug: Tylenol 1000 mg Route: PO; lp1 22:27 Follow up: Response: No adverse reaction lp1 22:33 Not Given (Physician Discretion): Flagyl (metroNIDAZOLE) 500 mg 100 ml IVPB at 200 lp1 ml/hr once over 30 mins 22:47 Drug: Flagyl (metroNIDAZOLE) 500 mg Route: PO; lp1 22:55 Follow up: Response: No adverse reaction lp1 Disposition Summary: 06/03/21 22:21 Discharge Ordered Location: Home jo Problem: new jo Symptoms: have improved jo Condition: Stable jo Diagnosis - Abdominal pain, Generalized jo - Vomiting jo - Diarrhea, unspecified jo - Bipolar disorder, unspecified jo Followup: jo - With: Private Physician - When: 2 - 3 days - Reason: Recheck today's complaints, Continuance of care, Re-evaluation by your physician Followup: jo - With: Millie Cohen MD - When: 2 - 3 days - Reason: Recheck today's complaints, Re-evaluation by your physician Discharge Instructions: - Discharge Summary Sheet jo - Abdominal Pain, Adult jo - Diarrhea, Adult jo - Diarrhea, Adult, [id number] jo - Vomiting, Adult jo - Bipolar 1 Disorder [facility] Forms: - Medication Reconciliation Form jo - Thank You Letter jo - Antibiotic Education jo - Prescription Opioid Use jo Prescriptions: - Protonix 40 mg Oral Tablet - take 1 tablet by ORAL route once daily; 30 tablet; Refills: 0, Product jo Selection Permitted - Zofran 4 mg Oral Tablet - take 1 tablet by ORAL route every 12 hours As needed; 20 tablet; Refills: 0, [facility] Product Selection Permitted - dicyclomine 20 mg Oral Tablet - take 1 tablet by ORAL route 4 times per day; 28 tablet; Refills: 0, Product jo Selection Permitted Signatures: Dispatcher [employer] Bill Morrison MD MD cha Pena, Laura RN RN lp1 Zoë Nelson RN RN kg
--- NOTE | 2021-06-03 22:21 | ER ---
Nurse's Notes [facility] Name: Tiffany Quinn Age: 50 yrs Sex: Female : 1970 Arrival Date: 06/03/2021 Time: 17:06 Bed 10 Private MD: Diagnosis: Abdominal pain, Generalized;Vomiting;Diarrhea, unspecified;Bipolar disorder, unspecified Presentation: 06/03 18:49 Chief complaint: Patient states: Vomiting starting at 0100 pt also states shes had 13 kg BMS since 0100 and has seen dark and bright red in stool. Coronavirus screen: Client denies travel out of the [place] in the last 14 days. At this time, unable to obtain information related to travel outside the [place] At this time, the client does not indicate any symptoms associated with coronavirus-19. Ebola Screen: Patient negative for fever greater than or equal to 101.5 degrees Fahrenheit, and additional compatible Ebola Virus Disease symptoms Patient denies exposure to infectious person. Patient denies travel to an Ebola-affected area in the 21 days before illness onset. Initial Sepsis Screen: Does the patient meet any 2 criteria? No. Patient's initial sepsis screen is negative. Does the patient have a suspected source of infection? No. Patient's initial sepsis screen is negative. Risk Assessment: Do you want to hurt yourself or someone else? Patient reports no desire to harm self or others. Onset of symptoms was June 03, 2021 at 01:00. 18:49 Method Of Arrival: Ambulatory kg 18:49 Acuity: MANUEL 3 kg Triage Assessment: 21:15 General: Appears in no apparent distress. Behavior is calm, cooperative, appropriate lp1 for age. 21:15 Pain: Denies pain. GI: Reports bloody stool. lp1 Historical: - Allergies: 18:53 Haldol; kg 18:53 Pepcid; kg 18:53 Stadol; kg 18:53 Toradol; kg 18:53 Reglan; kg - Home Meds: 18:53 Vraylar Oral [Active]; Sage Carbonate Oral 1 cap [Active]; kg - PMHx: 18:53 ADD/ADHD; Anxiety; Bipolar disorder; Hernia; Migraines; PSYCH PROBLEMS; Schizophrenia; kg unsure if she is; Seizures; - PSHx: 18:53 Cholecystectomy; Hiatal hernia; Hernia; Breast sx x 2; kg - Immunization history:: Adult Immunizations not up to date, Client reports receiving the 2nd dose of the Covid vaccine, Date received: March 27, 2021 [facility] Client reports receiving the 1st dose of the Covid vaccine, February 28, 2021. - Social history:: Smoking status: Patient/guardian denies using tobacco, the patient reports quitting approximately 3 years ago. - Family history:: not pertinent. Screenin:53 Abuse screen: Denies threats or abuse. Denies injuries from another. Nutritional kg screening: No deficits noted. Tuberculosis screening: No symptoms or risk factors identified. Fall Risk None identified. Assessment: 22:56 GI: Rectal exam: Bleeding noted. lp1 Vital Signs: 18:49 BP 133 / 70; Pulse 90; Resp 20; Temp 98.3(TE); Pulse Ox 99% on R/A; Weight 81.65 kg kg (R); Height 5 ft. 2 in. (157.48 cm) (R); Pain 10/10; 22:47 BP 130 / 82; Pulse 89; Resp 16; lp1 18:49 Body Mass Index 32.92 (81.65 kg, 157.48 cm) kg ED Course: 17:06 Patient arrived in ED. mr 18:52 Triage completed. kg 18:53 Patient has correct armband on for positive identification. kg 18:53 No provider procedures requiring assistance completed. kg 20:29 Bill Palm MD is Attending Physician. jo 20:39 Lora Lozada, RN is Primary Nurse. lp1 20:44 Chest Single View XRAY In Process Unspecified. EDMS 21:24 CT Abd/Pelvis - IV Contrast Only In Process Unspecified. EDMS 22:20 Millie Cohen MD is Referral Physician. jo 22:27 Urine Culture Sent. lp1 22:27 Urine Culture Sent. lp1 22:52 EKG completed in triage. Results shown to . lp1 22:56 Arm band placed on right wrist. lp1 22:56 IV discontinued, bleeding controlled. lp1 Administered Medications: 21:47 Drug: NS 0.9% 1000 ml Route: IV; Rate: 1 bolus; Site: right wrist; lp1 22:52 Follow up: IV Status: Completed infusion lp1 22:55 Follow up: IV Intake: 1000ml lp1 21:47 Drug: Rocephin (cefTRIAXone) 1 grams Route: IV; Rate: per protocol; Site: right wrist; lp1 21:58 Follow up: IV Status: Completed infusion; IV Intake: 10ml lp1 21:59 Follow up: Response: No adverse reaction lp1 22:52 Follow up: IV Status: Completed infusion lp1 22:16 Drug: Tylenol 1000 mg Route: PO; lp1 22:27 Follow up: Response: No adverse reaction lp1 22:33 Not Given (Physician Discretion): Flagyl (metroNIDAZOLE) 500 mg 100 ml IVPB at 200 lp1 ml/hr once over 30 mins 22:47 Drug: Flagyl (metroNIDAZOLE) 500 mg Route: PO; lp1 22:55 Follow up: Response: No adverse reaction lp1 Intake: 21:58 IV: 10ml; Total: 10ml. lp1 22:55 IV: 1000ml; Total: 1010ml. lp1 Outcome: 22:21 Discharge ordered by . jo 22:53 Discharged to home ambulatory. lp1 22:53 Condition: stable 22:53 Discharge instructions given to patient, Instructed on discharge instructions, follow up and referral plans. medication usage, Demonstrated understanding of instructions, follow-up care, medications, Prescriptions given X 3. 22:54 Patient left the ED. lp1 Signatures: Dispatcher [employer] EDBill Jean MD MD cha Rivera, Mary mr Pena, Laura RN RN lp1 Zoë Nelson RN RN kg
[2021-06-03 22:23] LABS: Urine Blood Negative (Negative); Urine Glucose Negative (Negative); Urine Protein Trace (Negative); Urine pH 6.5 (5.0-7.0)
[2021-06-03] MEDS ORDERED: ACETAMINOPHEN 500 MG TAB ONE (22:35)
[2021-06-03] MEDS ORDERED: metroNIDAZOLE 500 MG TABLET ONE (22:53)
[2021-06-03 23:03] VITALS: TEMP 98.3; O2SAT 99
[2021-06-03 23:05] VITALS: BP 130/82
--- NOTE | 2021-06-04 07:32 | EKG ---
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
== END 2021-06-03 22:54 | disposition home or self-care (01) ==
LOC: ER 17:01
DX: R10.84 Generalized abdominal pain (principal); R19.7 Diarrhea, unspecified; F31.9 Bipolar disorder, unspecified; Z88.5 Allergy status to narcotic agent; Z88.8 Allergy status to other drugs, medicaments and biological substances
CPT/HCPCS: 96361; 93005; 87088; 85025; 87086; 80048; 36415; 80178; 80076; 81003; 83690; 74177; 71045; 96374; 99284; Q9967; J0696; J7030

== ENCOUNTER 2021-06-04 12:33 | Emergency (ER) | payer OTHER ==
--- OUTSIDE RECORDS SUMMARY | 2021-06-04 12:41 | XMS REPORT | Continuity of Care Document ---
:1970 Author Organization [facility] t Address [address] [place] [address] Care Team Providers Name Role Phone UNKNOWN [...] oria 01-21 01:52:00 l LOW PB 00:00: [place] 00 Active 01/21/2019 [facility] INFECTIOUS Diagnosis Active 2019-02-06 Memoria GASTROENTE 01-21 08:58:00 l RITIS AND 00:00: Yon[place] COLITIS INFECTIOUS 00 GASTROENTE RITIS AND COLITIS Active 01/21/2019 [facility] INFECTIOUS Diagnosis Active 2019-02-06 Memoria GASTROENTE 08:58:00 l RITIS AND [place] COLITIS, INFECTIOUS GASTROENTE RITIS AND COLITIS, Active [facility] Allergies, Adverse Reactions, Alerts Allergy Allergy Status Severity Reaction(s) Onset Inactive Treating Comm ents Source Name Type Date Date Clinician Jm Lemosergbrannon Active Wicho Somers Social History Smoking Status Start Date Stop Date Source Social History 2019-01-22 05:00:12 [facility] Medications Ordered Filled Start Stop Current Ordering Indication Dosage Frequency Signature Comments Components Source Medication Medication Date Date Medication? Clinician (SIG) Name Name ciprofloxac 2019 Yes 500 mg = 1 Memoria in 500 mg 4-04 tab, PO, l oral tablet 17:35: [id number], X Yonis 00 4 day, # 8 tab, 0 Refill(s) Ondansetron 2018- Yes 4 mg = 1 Me moria [...] 4 day, # 12 tab, 0 Refill(s) Metronidazo Yes 500 mg = 1 Memoria le 500 MG 4-04 tab, PO, l Oral Tablet 17:35: [id number], X H ermann 00 4 day, # 12 tab, 0 Refill(s) ciprofloxac Yes 500 mg = 1 Memoria in 500 mg 4-04 tab, PO, l oral tablet 17:35: [id number], X Yonis 00 4 day, # 8 [...] Refill(s) Potassium No Notes: Memori a Chloride -03 (Same as: l 13:26: K-Dur 20) [place] 00 "Do Not Crush" Give with food and full glass of water For patients unable to swallow tablet, dissolve in one half glass of water. Allow about 2 minutes for the tablets to disintegra te. Stir before giving to prepare slurry and administer . Please exclude Patient s with feeding tube less than 14 [place] Islander (Dobhoff, J-tube etc) and pediatric and patients. Potassium 2019- No Notes: Memori a Chloride - (Same as: l 13:26: K-Dur 20) "Do Not Crush" Give with food and full glass of water For patients unable to swallow tablet, dissolve in one half glass of water. Allow about 2 minutes for the tablets to disintegra te. Stir before giving to prepare slurry and administer . Please exclude Patient s with feeding tube less than 14 [place] Islander (Dobhoff, J-tube etc) and pediatric and patients. Strattera No 0.5 mg/kg, Me moria 4 Route: PO, l 14:00: QAM, Dosing Weight 75, kg, Start date: 01/24/19 9:00:00 CDT, Duration: 30 day, Stop date: 02/22/19 9:00:00 CDT Strattera No 0.5 mg/kg, Me moria 4 Route: PO, l 14:00: QAM, Dosing Weight 75, kg, Start date: 01/24/19 9:00:00 CDT, Duration: 30 day, Stop date: 02/22/19 9:00:00 CDT lithium No Notes: Do Memor ia - not crush l 02:00: or chew. (Same as: Eskalith-C R) lithium No Notes: Do Memor ia 4-02 not crush l 02:00: or chew. Yonis 00 (Same as: Eskalith-C R) Risperdal No Notes: Memori a 01-23 (Same as: l 22:00: Risperdal) Strattera No 1 mg, Memoria 4 Route: PO, l 22:00: QPM, Dosing Weight 75, kg, Start date: 01/23/19 17:00:00 CDT, Duration: 30 day, Stop date: 02/21/19 17:00:00 CDT Risperdal 2018- No Notes: Memori a 4-01 (Same as: l 22:00: Risperdal) Strattera No 1 mg, Memoria 4-01 Route: PO, l 22:00: QPM, Yonis Dosing Weight 75, kg, Start date: 01/23/19 17:00:00 CDT, Duration: 30 day, Stop date: 02/21/19 17:00:00 CDT normal 2018-0 No 1,000 mL, Memori a saline 0.9% 4- Rate: 100 l IV 1,000 mL 19:18: ml/hr, Herm stephon 00 Infuse over: 10 hr, Route: IV, Dosing Weight 75 kg, Total Volume: 1,000, Start date: 01/23/19 14:18:00 CDT, Duration: 30 day, Stop date: 02/22/19 14:17:00 CDT, 1.84, m2 normal 0 No 1,000 mL, Memori a saline 0.9% 4- Rate: 100 l IV 1,000 mL 19:18: ml/hr, Herm stephon 00 Infuse over: 10 hr, Route: IV, Dosing Weight 75 kg, Total Volume: 1,000, Start date: 01/23/19 14:18:00 CDT, Duration: 30 day, Stop date: 02/22/19 14:17:00 CDT, 1.84, m2 Clonazepam No Notes: Memor ia 4-01 (Same As: l 18:00: KlonoPIN) Clonazepam No Notes: Memor ia 4-01 (Same As: l 18:00: KlonoPIN) Flagyl No Notes: Memoria 4-01 (Same as: l 15:00: Flagyl) Yonis 00 Take with food/ avoid alcohol Cipro No Notes: May Memori a 4-01 interfere l 15:00: w/enteral Yonis feedings - Take 1 hr before or 2 hrs after antacids, dairy pdt & minerals. On empty stomach. Flagyl No Notes: Memoria 4-01 (Same as: l 15:00: Flagyl) Yonis 00 Take with food/ avoid alcohol Cipro No Notes: May Memori a 01-23 interfere l 15:00: w/enteral Yonis 00 feedings - Take 1 hr before or 2 hrs after antacids, dairy pdt & minerals. On empty stomach. tramadol No 50 mg = 1 Estrada doni hydrochlori 4-01 tab, PO, l de 50 MG 14:20: Q6H, PRN Deloris nn Oral Tablet 00 Pain Score 1-3, 0 Refill(s) potassium 2019 Yes 40 mEq, Memor ia chloride 20 4-01 PO, ONCE, l mEq oral 14:20: 0 [place] tablet, 00 Refill(s) extended release Metronidazo No 500 mg, Mem oria le 500 MG 4-01 PO, l Oral Tablet 14:20: ABXQ8H, 0 H ermann [Flagyl] 00 Refill(s) Ciprofloxac No 500 mg, Mem oria in 500 MG -01 PO, l Oral Tablet 14:20: [id number], 0 [place] [Cipro] 00 Refill(s) tramadol No 50 mg = 1 Estrada doni hydrochlori 4-01 tab, PO, l de 50 MG 14:20: Q6H, PRN Deloris nn Oral Tablet 00 Pain Score 1-3, 0 Refill(s) potassium Yes 40 mEq, Memor ia chloride 20 4-01 PO, ONCE, l mEq oral 14:20: 0 Yonis tablet, 00 Refill(s) extended release Metronidazo No 500 mg, Mem oria le 500 MG 4-01 PO, l Oral Tablet 14:20: ABXQ8H, 0 H ermann [Flagyl] 00 Refill(s) Ciprofloxac No 500 mg, Mem oria in 500 MG 4-01 PO, l Oral Tablet 14:20: [id number], 0 Yonis [Cipro] 00 Refill(s) Potassium No [...] s with feeding tube less than 14 [place] Islander (Dobhoff, J-tube etc) and pediatric and patients. Potassium 2018- No Notes: Memori a Chloride 4- (Same as: l 14:17: K-Dur 20) "Do Not Crush" Give with food and full glass of water For patients unable to swallow tablet, dissolve in one half glass of water. Allow about 2 minutes for the tablets to disintegra te. Stir before giving to prepare slurry and administer . Please exclude Patient s with feeding tube less than 14 [place] Islander (Dobhoff, J-tube etc) and pediatric and patients. Pepcid No Notes: Memoria 3-31 (Same as: l 22:00: Pepcid) Pepcid No Notes: Memoria 3-31 (Same as: l 22:00: Pepcid) Yonis 00 Strattera 0 Yes 0.5 mg/kg, Me moria 3-31 PO, QAM, 0 l 21:08: Refill(s) [place] 00 lithium 450 0 Yes 450 mg = 1 Memoria mg oral 3-31 tab, PO, l tablet, 21:08: Bedtime, # Herm stephon extended 00 60 tab, 0 release Refill(s) clonazePAM Yes 0.5 mg = 1 M emoria 0.5 mg oral 3-31 tab, PO, l tablet 21:08: TID, # 90 Reji n 00 tab, 0 Refill(s) Risperidone 2018- Yes 0.5 mg = 1 Memoria 0.5 MG Oral 3-31 tab, PO, l Tablet 21:08: BID, 0 [place] [Risperdal] 00 Refill(s) Strattera 2019-0 Yes 0.5 mg/kg, Me moria 3-31 PO, QAM, 0 l 21:08: Refill(s) Yonis 00 lithium 450 0 Yes 450 mg = 1 Memoria mg oral 3-31 tab, PO, l tablet, 21:08: Bedtime, # Herm stephon extended 00 60 tab, 0 release Refill(s) clonazePAM 2019-0 Yes 0.5 mg = 1 M emoria [...] Size: 3375 mg Product Wasted: ___ mg Zosyn No Notes: Memoria 3-31 (Same as: l 16:00: Zosyn) Dosing based on Piperacill in component MEDICATION WASTE Product Size: 3375 mg Product Wasted: ___ mg Tramadol No Notes: Not Mem oria 3-31 to exceed l 15:03: 400mg/day. [place] 00 (Same As: Ultram) Tramadol No Notes: Not Mem oria 3-31 to exceed l 15:03: 400mg/day. [place] 00 (Same As: Ultram) normal No 1,000 mL, Memori a saline 0.9% 3-31 Rate: 150 l IV 1,000 mL 09:48: ml/hr, Herm stephon 00 Infuse over: 6.7 hr, Route: IV, Dosing Weight 75.994 kg, Total Volume: 1,000, Start date: 01/22/19 4:48:00 CDT, Duration: 30 day, Stop date: 02/21/19 4:47:00 CDT normal No 1,000 mL, Memori a saline 0.9% 3-31 Rate: 150 l IV 1,000 mL 09:48: ml/hr, Herm stephon Infuse over: 6.7 hr, Route: IV, Dosing Weight 75.994 kg, Total Volume: 1,000, Start date: 01/22/19 4:48:00 CDT, Duration: 30 day, Stop date: 02/21/19 4:47:00 CDT Ondansetron 2019-0 No Notes: Estrada doni 3-31 (Same as: l 09:47: Zofran) Yonis 00 MEDICATION WASTE Product Size: 4 mg Product Wasted: ___ mg Glucagon 2018-0 No 1 mg, Memoria 3 Route: IM, l 09:47: Drug form: [place] 00 PDR/INJ, PRN, Dosing Weight 75.994, kg, PRN Blood Glucose Results, Start date: 01/22/19 4:47:00 CDT, Duration: 30 day, Stop date: 02/21/19 4:46:00 CDT Dextrose 2019-0 No 12.5 gm, Memor ia 50% Syringe 3-31 25 mL, l 09:47: Route: [place] 00 IVP, Drug Form: INJ, Dosing Weight 75.994, kg, PRN, PRN Blood Glucose Results, Start date: 01/22/19 4:47:00 CDT, Duration: 30 day, Stop date: 02/21/19 4:46:00 CDT Ondansetron 2018-0 No Notes: Estrada doni 3-31 (Same as: l 09:47: Zofran) Yonis 00 MEDICATION WASTE Product Size: 4 mg Product Wasted: ___ mg Glucagon 2018-0 No 1 mg, Memoria 01-22 Route: IM, l 09:47: Drug form: Yonis 00 PDR/INJ, PRN, Dosing Weight 75.994, kg, PRN Blood Glucose Results, Start date: 01/22/19 4:47:00 CDT, Duration: 30 day, Stop date: 02/21/19 4:46:00 CDT Dextrose 2019-0 No 12.5 gm, Memor ia 50% Syringe 3-31 25 mL, l 09:47: Route: [place] 00 IVP, Drug Form: INJ, Dosing Weight 75.994, kg, PRN, PRN Blood Glucose Results, Start date: 01/22/19 4:47:00 CDT, Duration: 30 day, Stop date: 02/21/19 4:46:00 CDT Zofran 2019-0 No Notes: Memoria 3-31 (Same as: l 08:56: Zofran) Yonis 00 MEDICATION WASTE Product Size: 4 mg Product Wasted: ___ mg Zofran No Notes: Memoria 3-31 (Same as: l 08:56: Zofran) Yonis MEDICATION WASTE Product Size: 4 mg Product Wasted: ___ mg NS (Bolus) No 1,000 mL, Me moria IV 3-31 1,000 l 08:52: ml/hr, [place] 00 Infuse Over: 1 hr, Route: IV, 1,000, Drug form: INJ, ONCE, Priority: STAT, Dosing Weight 75.994 kg, Start date: 01/22/19 3:52:00 CDT, Stop date: 01/22/19 3:52:00 CDT NS (Bolus) No 1,000 mL, Me moria IV 3-31 1,000 l 08:52: ml/hr, [place] 00 Infuse Over: 1 hr, Route: IV, 1,000, Drug form: INJ, ONCE, Priority: STAT, Dosing Weight 75.994 kg, Start date: 01/22/19 3:52:00 CDT, Stop date: 01/22/19 3:52:00 CDT Visipaque No Notes: Memori a 320 mg/mL 3-31 (Same as: l injectable 06:42: Visipaque) H ermann solution 00 . WASTE: F/P - Black; E - Municipal Trash Bin Visipaque No Notes: Memori a 320 mg/mL 3-31 (Same as: l injectable 06:42: Visipaque) H ermann solution 00 . WASTE: F/P - Black; E - Municipal Trash Bin Zosyn No Notes: Memoria 3-31 (Same as: l 06:10: Zosyn) [place] Dosing based on Piperacill in component MEDICATION WASTE Product Size: 3375 mg Product Wasted: ___ mg Zosyn No Notes: Memoria 3-31 (Same as: [...] 0:44:00 CDT, Stop date: 01/22/19 0:44:00 CDT NS (Bolus) No 1,000 mL, Me moria IV 3-31 1,000 l 05:44: ml/hr, [place] 00 Infuse Over: 1 hr, Route: IV, 1,000, Drug form: INJ, ONCE, Priority: STAT, Dosing Weight 75.994 kg, Start date: 01/22/19 0:44:00 CDT, Stop date: 01/22/19 0:44:00 CDT Zofran No Notes: Memoria 3-31 (Same as: l 04:52: Zofran) [place] 00 MEDICATION WASTE Product Size: 4 mg Product Wasted: ___ mg Saline No Notes: Memoria Flush 0.9% 3-31 Same as: l 04:52: BD [place] 00 Posiflush Sterile Zofran No Notes: Memoria 3-31 (Same as: l 04:52: Zofran) [place] 00 MEDICATION WASTE Product Size: 4 mg Product Wasted: ___ mg Saline No Notes: Memoria Flush 0.9% 3-31 Same as: l 04:52: BD [place] 00 Posiflush Sterile NS (Bolus) No 1,000 mL, Me moria IV 3-31 1,000 l 04:51: ml/hr, Yonis 00 Infuse Over: 1 hr, Route: IV, 1,000, Drug form: INJ, ONCE, Priority: STAT, Dosing Weight 75.994 kg, Start date: 01/21/19 23:51:00 CDT, Stop date: 01/21/19 23:51:00 CDT NS (Bolus) No 1,000 mL, Me moria IV 3-31 1,000 l 04:51: ml/hr, [place] 00 Infuse Over: 1 hr, Route: IV, 1,000, Drug form: INJ, ONCE, Priority: STAT, Dosing Weight 75.994 kg, Start date: 01/21/19 23:51:00 CDT, Stop date: 01/21/19 23:51:00 CDT Vital Signs Vital Name Observation Time Observation Value Comments Source Temperature Oral (F) 2019-01-28 01:16:00 98.6 F [facility] [place] Systolic (mm Hg) 2019-01-28 01:16:00 Estrada rial [place] Diastolic (mm Hg) 2019-01-28 01:16:00 Mem orial Yon[place] Heart Rate 2019-01-28 01:16:00 [facility] Y[place] Respitory Rate 2019-01-28 01:16:00 Memori al [place] Systolic (mm Hg) 2019-01-27 20:42:00 Estrada rial [place] Diastolic (mm Hg) 2019-01-27 20:42:00 Mem orial [place] Heart Rate 2019-01-27 20:42:00 [facility] Yonis Respitory Rate 2019-01-27 20:42:00 Memori al Yon[place] Temperature Oral (F) 2019-01-27 20:42:00 98.5 F [facility] [place] Systolic (mm Hg) 2019-01-27 17:00:00 Estrada rial Yonis Diastolic (mm Hg) 2019-01-27 17:00:00 Mem orial [place] Temperature Oral (F) 2019-01-27 17:00:00 98.5 F [facility] [place] Heart Rate 2019-01-27 17:00:00 [facility] Yonis Respitory Rate 2019-01-27 17:00:00 Memori al [place] Height 2019-01-22 14:35:00 [facility] 2019-01-22 [facility]:35[facility] [place] Weight 2019-01-22 14:35:00 [facility] Yonis Weight 2019-01-22 04:34:00 [facility] Procedures This patient has no known procedures. Encounters Start End Encounter Admission Attending Care Care Encounter Source Date/Time Date/Time Type Type Clinicians Facility Department ID 2019-01-22 Inpatient E SW MED [id number] [facility] W 04:39:00 2020-09-30 2020-09-30 Emergency DENIA Jackson [id number] 07:22:00 08:18:00 Gio Jimenez [id number] [place] [id number] [place] [id number] 2020-03-04 2020-03-14 Inpatient 3 Ronni Eldridge [facility] [id number] 15:38:00 15:25:00 [facility] 2019-01-22 2019-01-28 Inpatient [facility] [id number] Memoria 04:33:00 04:40:00 r Yon[place] 00 l [facility] 2019-01-22 2019-01-28 Inpatient [facility] [id number] Memoria 04:33:00 04:40:00 r [place] 00 l [facility] 2019-01-21 2019-01-27 [id number] 23:33:00 23:40:00 Ed 00 2018-02-21 2018-02-20 [id number] [facility] 14:48:00 13:18:00 [facility] Results Test Description Test Time Test [...] = Expiration Dt) 10-24-2020 N Thyroid Stimulating Iowctse0725-90-95 08:35:16 Test Item Value Reference Range Interpretation Comments TSH (test code = TSH) 1.170 mIU/mL 0.270-4.200 Lipid Tdjws0414-65-12 08:21:19 Test Item Value Reference Range Interpretation Comments Cholesterol Total 254 mg/dL 0-200 H RISK OF HE ART (test code = DISEASEPublishe d by Cholesterol Total) [place] Cathie lyte Optimal Borderl ine [...] calculation is LDL/HDL Ratio=L DL Calc/HDL Chol CXNXCLGLMYEV7301-30-51 08:24:0027[facility] VpgftfqTALXATGPMERL5011-74-67 08:24:00 139[facility] EhijbhuMCDSMBBKEZHX8230-37-98 08:24:003.6[facility] [place] YBJRDWMLHTNB4134-62-87 08:24:000.70[facility] DuaxierTUYLIRPUSFZN6319-31-46 08:24:008.4[facility] AubapfoORCVLRAXGHBL8471-52-45 08:24:66666Dxkeaznn Yonis VQHQEGQBFYIP8599-48-65 08:24:0086[facility] AmxpeqmNMMYQYCWEJKT4879-71-84 08:24:00 6[facility] JvrgnldAYMFEOXCJP9858-18-93 08:24:0011.6[facility] HermannHEMATOLOGY 2019-01-26 08:24:003.78[facility] GxdxtktZBSQZVLZYI2459-27-44 08:24:0013.3[facility] OnnhopaZWLYLNIVAQ4946-33-55 08:24:0034.0[facility] MynlmknIYOWSOUVVI2603-72-17 08:24:006.3[facility] SquwqohOJVMEMUDJY7290-16-23 08:24:00 Test Item Value Reference Range Interpretation Comments MCH (test code = MCH) 30.7 pg 27.0-31.0 [facility] RwmbzqaNNJAXAFZME7471-78-12 08:24:0090.3[facility] HermannHEMATOLOGY 2019-01-26 08:24:0034.2[facility] EuhsymrTNIYKAKTKH7072-21-19 08:24:17574Zjagckkr EftchnnMEOFRDMINP8314-23-44 08:24:007.5[facility] RmlnlhtEAHDTGTTBCMA8235-80-76 08:24:008.6[facility] ParkrrgXMBIPKICQJMG8548-71-56 08:24:06796Hecvhcrn [place] PZVHWAOBQVWZ8885-86-67 08:24:0027[facility] VtrmqozQQCACSYEHMDC2838-14-19 08:24:00 139[facility] JqcfeidBFXPOFDDNAWQ4798-85-58 08:24:003.6[facility] [place] VWWNBRKVRDGB5836-84-78 08:24:000.70[facility] CubrzuxERGJHPDFPZTP7859-80-90 08:24:008.4[facility] NyzxddiKDHGCFFGVMKI7287-47-22 08:24:32680Qtxtrztn [place] AIMQAAHWXLXF7011-34-72 08:24:0086[facility] YtgozsiFQQVNXLTTRAL4016-97-21 08:24:00 6[facility] SsulytlYQAIWILOOU3688-90-45 08:24:0011.6[facility] HermannHEMATOLOGY 2019-01-26 08:24:003.78[facility] IbtmwkdOJLXJQIMVY9481-85-84 08:24:0013.3[facility] IppworpVMBYVBUMZO4915-87-57 08:24:0034.0[facility] IlazwiuQOBIUUHMFJ5768-76-83 08:24:006.3[facility] OnipuwcIZRWHWBVFV8974-01-60 08:24:00 Test Item Value Reference Range Interpretation Comments MCH (test code = MCH) 30.7 pg 27.0-31.0 [facility] LgpcykySTFXGMPOWG1940-24-25 08:24:0090.3[facility] HermannHEMATOLOGY 2019-01-26 08:24:0034.2[facility] XrdhmbrFUTJPGPDZR3489-45-31 08:24:58551Pkeoaljj QzkalbaVSEVFKQMJH6746-05-84 08:24:007.5[facility] GvpiaszCPMFHZDUPBDY6998-28-77 08:24:008.6[facility] ReplsqwMCNTZCRJRKHN3157-01-51 08:24:99968Edfgwkqt Yonis CHEM IDFTY1313-04-68 09:14:35552Abaallrv HermannCHEM YKSIS2118-15-38 09:14:008.5 [facility] HermannCHEM MHIUM6317-14-01 09:14:0013.3[facility] HermannCHEM PANEL 2019-01-25 09:14:0024[facility] HermannCHEM YMUMR2008-93-11 09:14:13509Nmpnjgna HermannCHEM CPTSH9535-44-74 09:14:0081[facility] HermannCHEM CAHUW4127-08-11 09:14:002[facility] HermannCHEM KNMBP1222-68-26 09:14:003.3[facility] HermannCHEM CZNXS8818-10-22 09:14:000.60[facility] HermannCHEM TTCQQ6454-95-97 09:14:49387 [facility] HermannCHEM KUSTM5178-27-16 09:14:47806Gumgticp HermannCHEM PANEL 2019-01-25 09:14:008.5[facility] HermannCHEM LZRRM8965-69-83 09:14:0013.3[facility] HermannCHEM QJQRA6964-10-61 09:14:0024[facility] HermannCHEM VKPUS7655-34-46 09:14:60217Hagdsatu HermannCHEM AZQJX6907-49-94 09:14:0081[facility] HermannCHEM MXHQV7668-93-82 09:14:002[facility] HermannCHEM NNPZX6240-75-53 09:14:003.3 [facility] HermannCHEM LWDZU2135-14-98 09:14:000.60[facility] HermannCHEM PANEL 2019-01-25 09:14:46960Bzgeiwuw HermannMOLECULAR XSTBSEISMF3693-15-20 16:22:00 Negative (01/23/19 11:22 AM)[facility] HermannMOLECULAR BFASPUJXCH1039-78-06 16:22:00Negative (01/23/19 11:22 AM)[facility] HermannCHEM ETTBN1772-58-75 15:42:00 2.76[facility] HermannCHEM NZWEM8026-09-04 15:42:002.76[facility] HermannCHEM PANEL 2019-01-23 12:32:000.9[facility] HermannCHEM JYYYN0790-60-70 12:32:000.9[facility] HermannCHEM NTHWX8049-52-46 10:50:002.0[facility] HermannCHEM OZMCJ1444-75-74 10:50:84887Wvkdkyhq HermannCHEM WLUXI0788-22-18 10:50:0023[facility] HermannCHEM USPNJ4214-94-27 10:50:95495Oxumwoaa HermannCHEM EZVWV4764-05-50 10:50:003.1 [facility] HermannCHEM ABCZB3502-72-73 10:50:94710Qbkmlkyc HermannCHEM PANEL 2019-01-23 10:50:005[facility] HermannCHEM LCSZU2599-76-24 10:50:000.50[facility] HermannCHEM TCZHB8790-03-91 10:50:007.8[facility] HermannCHEM ZMENK8088-26-52 10:50:0083[facility] HermannCHEM VPVHK1532-65-31 10:50:0010.1[facility] [place] BUYEPPEHDS3714-93-74 10:50:000.2[facility] OetgkqpBGKHVFMLLN8747-61-72 10:50:000.8 [facility] IgyteviFVEAHOMVEV4459-92-98 10:50:005.5[facility] HermannHEMATOLOGY 2019-01-23 10:50:002.2[facility] AmptuauGXKKUABEPI2193-33-05 10:50:000.1[facility] QmleqxsTAKBRIMDWY0430-64-80 10:50:0063.6[facility] PthrnxzAHSXSMDDSC6987-60-35 10:50:008.9[facility] FzzovsjHULYCGVBTS8445-41-98 10:50:002.3[facility] [place] ZXNTGEHSIK1244-95-11 10:50:00Normal (01/23/19 5:50 AM)[facility] HermannHEMATOLOGY 2019-01-23 10:50:00Normal (01/23/19 5:50 AM)[facility] QoinjjtRFYEAXOCTL9488-35-07 10:50:0025.1[facility] UeglsmoYSRXFBWSIS4245-07-73 10:50:0013.1[facility] Yonis TQMEKNWNMY9834-11-15 10:50:0013.1[facility] SpqiismNUVHYUTJJB6296-13-94 10:50:00 327[facility] FeixlcdKWNQXIXCWJ4165-70-55 10:50:007.7[facility] HermannHEMATOLOGY 2019-01-23 10:50:008.6[facility] AmzlmdeXQBZVAHPWK4173-99-50 10:50:0010.0[facility] PnasjdvKJGZOCKOWE3775-52-91 10:50:0034.6[facility] SyqrolnFFKNVFZRVN8075-75-96 10:50:0028.7[facility] JxsmguuLTRERXEDAZ7660-58-40 10:50:0087.8[facility] [place] AJWNDMUPHQ8888-28-90 10:50:00 Test Item Value Reference Range Interpretation Comments MCH (test code = MCH) 30.4 pg 27.0-31.0 [facility] AcgwnogBEPOYQHIQB2923-82-86 10:50:003.27[facility] HermannHEMATOLOGY 2019-01-23 10:50:42399Vlfnqwal IwuzbltXNQPUSBQHY9251-57-06 10:50:007.7[facility] TcpmlacJLNOTTSKKD4322-06-96 10:50:008.6[facility] JuqqyqfNQQCZIBXIQ3752-26-34 10:50:0010.0[facility] MbtlzxgEYIVDNRGUI9376-14-60 10:50:0034.6[facility] Yonis DZVWGWFNSY2396-35-67 10:50:0028.7[facility] HermannCHEM IIATW0821-46-90 10:50:00 2.0[facility] HermannCHEM FKQRC6048-25-29 10:50:64668Axxysfze HermannCHEM PANEL 2019-01-23 10:50:0023[facility] HermannCHEM EKGKP1176-96-60 10:50:03843Jgjhdhih HermannCHEM KAZWS0982-88-78 10:50:003.1[facility] HermannCHEM NNRTY9019-67-99 10:50:94454Wxzbvsio HermannCHEM NJTXJ1345-36-43 10:50:005[facility] HermannCHEM UMJBL8369-64-34 10:50:000.50[facility] HermannCHEM CXZPV9836-25-52 10:50:007.8 [facility] XhyjwafQMZCLMYKKH1028-14-03 10:50:0087.8[facility] HermannCHEM PANEL 2019-01-23 10:50:0083[facility] HermannCHEM BVMST8262-97-13 10:50:0010.1[facility] RqwsuihLRDYIJBESF5126-49-70 10:50:000.2[facility] MydpkrpYGDYTFWGYL8456-69-03 10:50:000.8[facility] RiropyqIOWISBBBHW4981-78-89 10:50:005.5[facility]is ATRWFVJZCP1769-70-36 10:50:002.2[facility] DxqxavmQWTSLIVGZB1867-35-44 10:50:000.1 [facility] PwrocyfTVXFHBGXFY6835-48-45 10:50:0063.6[facility] HermannHEMATOLOGY 2019-01-23 10:50:008.9[facility] PntugubTYXTLNALHE4814-85-42 10:50:002.3[facility] QtjvfoeABIQSVMHBA7439-83-29 10:50:00 Test Item Value Reference Range Interpretation Comments MCH (test code = MCH) 30.4 pg 27.0-31.0 [facility] GekafosZKOKKPOLWU8106-33-34 10:50:00Normal (01/23/19 5:50 AM)[facility] KrohmvqOFVBIHRYAH0279-24-94 10:50:00Normal (01/23/19 5:50 AM)[facility]is LLFVRJLFMO5099-19-70 10:50:0025.1[facility] EgbibxeYAOKUNMFZR1225-71-04 10:50:00 3.27[facility]annCHEM UOKNM6160-01-03 11:32:002.4[facility]annCHEM PANEL 2019-01-22 11:32:002.4[facility]annCHEM JWKCY0550-99-61 09:04:003.0[facility]annCHEM VWBOM0164-19-61 09:04:003.0[facility] AND CWUMU8263-74-18 07:14:00 Test Item Value Reference Range Interpretation Comments UA Spec Grav (test code = UA Spec 1.014 1 Grav) [facility] [id number] 07:14:00 Test Item Value Reference Range Interpretation Comments UA pH (test code = UA pH) 6.0 1 5.0-8.0 [facility] [id number] 07:14:00Negative (01/22/19 2:14 AM) [facility] [id number] 07:14:00Negative *NA*(01/22/19 2:14 AM) [facility] [id number] 07:14:00Negative *NA*(01/22/19 2:14 AM) [facility] QCXYH5110-79-04 07:14:00Negative *NA*(01/22/19 2:14 AM) [facility] DDESH8205-52-20 07:14:00Negative (01/22/19 2:14 AM) [facility] EBIBG4610-45-15 07:14:00Negative (01/22/19 2:14 AM) [facility] [id number] 07:14:00Negative (01/22/19 2:14 AM) [facility] TMGTU4572-61-78 07:14:00<1[facility] ZTOHP9998-73-67 07:14:0025[facility] WLUEC0606-85-63 07:14:002 [facility] GISLH0744-80-54 07:14:00Light Yellow *NA*(01/22/19 2:14 AM)[facility] [id number] 07:14:00Clear (01/22/19 2:14 AM) [facility] [id number] 07:14:00 Test Item Value Reference Range Interpretation Comments UA Spec Grav (test code = UA Spec 1.014 1 Grav) [facility] [id number] 07:14:00 Test Item Value Reference Range Interpretation Comments UA pH (test code = UA pH) 6.0 1 5.0-8.0 [facility] [id number] 07:14:00Negative (01/22/19 2:14 AM) [facility] [id number] 07:14:00Negative *NA*(01/22/19 2:14 AM) [facility] [id number] 07:14:00Negative *NA*(01/22/19 2:14 AM) [facility] [id number] 07:14:00Negative *NA*(01/22/19 2:14 AM) [facility] [id number] 07:14:00Negative (01/22/19 2:14 AM) [facility] [id number] 07:14:00Negative (01/22/19 2:14 AM) [facility] [id number] 07:14:00Negative (01/22/19 2:14 AM) [facility] [id number] 07:14:00<1[facility] UVLVT1915-10-99 07:14:0025[facility] WJWEG5521-70-30 07:14:002 [facility] [id number] 07:14:00Light Yellow *NA*(01/22/19 2:14 AM)[facility] [id number] 07:14:00Clear (01/22/19 2:14 AM) [facility] SofjnqeMSLTA5984-10-39 05:16:000.90[facility] NwmjkszQDLXV9139-40-74 05:16:000.90[facility]annBLOOD BANK ORMQJFL9183-52-73 05:01:00Negative (01/22/19 12:01 AM)[facility]annCARDIAC WYJIKUG4865-34-50 05:01:00<0.02 [facility]AC XZQQCNG1882-77-68 05:01:0049[facility]annCHEM PANEL 2019-01-22 05:01:000.6[facility]annCHEM ABRGO9468-37-93 05:01:25567Myishjhh HermannCHEM MIUXA5040-13-92 05:01:004.0[facility]annCHEM YWQXK8326-16-05 05:01:0017[facility]annCHEM GZXNY4180-86-04 05:01:0025[facility]annCHEM WZCRT1361-60-85 05:01:008.1[facility]annCHEM KFQON6533-64-97 05:01:00 Test Item Value Reference Range Interpretation Comments B/C Ratio (test code = B/C Ratio) 20 1 6-25 [facility]annCHE[facility] [id number] 05:01:00 Test Item Value Reference Range Interpretation Comments A/G Ratio (test code = A/G Ratio) 1.0 1 0.7-1.6 [facility]annCHE[facility] [id number] 05:01:004.1[facility]annCHEM PANEL 2019-01-22 05:01:006.90[facility] IxvrtenYAITYQHBQVKMB9970-65-38 05:01:00Negative *NA*(01/22/19 12:01 AM)[facility] KljyrpqBRNEYSTYHC5272-57-11 05:01:000.1[facility] SquaztrWBKBJAQUYE2907-05-41 05:01:000.7[facility] XohfzoiVATNAFWKOG7908-42-32 05:01:000.0[facility] SyebkdbTTJMPPAZIW0933-24-63 05:01:000.0[facility] [place] ABXBFCJMDJ8931-16-02 05:01:000.9[facility] BwqylmqCKUKFBMYMX5883-42-51 05:01:008.6 [facility] ErbatidTWUDNAQMSR0012-19-33 05:01:000.6[facility]annHEMATOLOGY 2019-01-22 05:01:0086.5[facility] KsobblcGAFVBRIUOU9111-99-32 05:01:005.7[facility] HahtvuaYHMKCTFHNT1626-69-89 05:01:006.9[facility] CrrffpjWUMNFZYDNL6110-21-79 05:01:009.9[facility] LgsksquLJSWFRXRJQ7725-60-69 05:01:0032.8[facility] [place] KBXFVFMEBU9783-89-62 05:01:0013.6[facility] TxvzaexYRGGOTWOOP5162-08-01 05:01:00 443[facility] KgjinwoSPSWVYRROG9062-97-52 05:01:007.3[facility]annHEMATOLOGY 2019-01-22 05:01:0014.0[facility] HysvnxwZZGVIQOJWG9714-58-05 05:01:004.85[facility] NmiyepzZQWLZFSCZH5136-34-39 05:01:0042.7[facility] WiinpnbXFMZGKMADK3189-57-38 05:01:00 Test Item Value Reference Range Interpretation Comments MCH (test code = MCH) 29.0 pg 27.0-31.0 [facility] LeodbxuHBHXVJKXZI9093-52-24 05:01:0088.2[facility]annHEMATOLOGY 2019-01-22 05:01:00 Test Item Value Reference Range Interpretation Comments INR (test code = INR) 0.96 1 0.85-1.17 [facility] QsqywynKOFOBCXEHI8562-60-59 05:01:00 Test Item Value Reference Range Interpretation Comments PT (test code = PT) 12.6 s 12.0-14.7 [facility] VjghojiMZWRGCDNQD4736-75-75 05:01:00 Test Item Value Reference Range Interpretation Comments PTT (test code = PTT) 25.9 s 22.9-35.8 [facility] [id number] 05:01:00Negative (01/22/19 12:01 AM) [facility] ETAHGDO6399-01-52 05:01:00<0.02[facility] [place] CARDIAC GGWKKOA8546-10-57 05:01:0049[facility]annCHEM OMWOE1909-09-07 05:01:000.6[facility]annCHEM YZXZZ3513-09-98 05:01:73237Aaqtueru HermannCHEM PBBZT2564-31-19 05:01:004.0[facility]annCHEM BHSRL4021-71-18 05:01:0017 [facility]annCHEM KNZHA6796-75-39 05:01:0025[facility]annCHEM PANEL 2019-01-22 05:01:008.1[facility]annCHEM JSVCE9358-59-77 05:01:00 Test Item Value Reference Range Interpretation Comments B/C Ratio (test code = B/C Ratio) 20 1 6-25 [facility]annCHEM [id number] 05:01:00 Test Item Value Reference Range Interpretation Comments A/G Ratio (test code = A/G Ratio) 1.0 1 0.7-1.6 [facility]annCHEM CYMJK7483-67-96 05:01:004.1[facility]annCHEM PANEL 2019-01-22 05:01:006.90[facility] QinmiseVCQSPYEEIXAWA5101-46-99 05:01:00Negative *NA*(01/22/19 12:01 AM)[facility] OojhfjcDQOCHDKCJA2921-10-93 05:01:000.1[facility] XgttvtqEHUVBWCDCW1134-47-35 05:01:000.7[facility] YuwzgvnXCTCCVDAER7096-71-06 05:01:000.0[facility] OcdxvmrIDDLMXVCOY4104-95-68 05:01:000.0[facility] [place] LKZGCEITUP4546-81-12 05:01:000.9[facility] GzdtrziHRSGTWNUVG9725-81-34 05:01:008.6 [facility] QmnaigdMZDMGGHUWP3127-11-48 05:01:000.6[facility]annHEMATOLOGY 2019-01-22 05:01:0086.5[facility] MzczvwiKIKVRJTECD8539-77-65 05:01:005.7[facility] JurdluhAHMCRJWLVV4227-75-95 05:01:006.9[facility] FsapvznRHVBEVDTPD7463-98-91 05:01:009.9[facility] DarnyfiHXQRWJQFMP5934-77-74 05:01:0032.8[facility] Yonis PKHOPZKHDB9480-65-42 05:01:0013.6[facility] YecnheuDMFLSFQSRF3875-47-99 05:01:00 443[facility] ZvkdmigEURJXKLLJE8305-52-16 05:01:007.3[facility] HermannHEMATOLOGY 2019-01-22 05:01:0014.0[facility] GlpvljyIZRARPKBTU5196-83-29 05:01:004.85[facility] MtqzjhyRYGWQVUUVZ5678-07-75 05:01:0042.7[facility]jldxdhMKZKZCUXHC8822-90-39 05:01:00 Test Item Value Reference Range Interpretation Comments MCH (test code = MCH) 29.0 pg 27.0-31.0 [facility]nch[facility]BWLYBCQZGI4031-83-40 05:01:0088.2[facility] 2019-01-22 05:01:00 Test Item Value Reference Range Interpretation Comments INR (test code = INR) 0.96 1 0.85-1.17 [facility]anoJydelwuTNZLFGNWNB3064-28-00 05:01:00 Test Item Value Reference Range Interpretation Comments PT (test code = PT) 12.6 s 12.0-14.7 [facility]anoZaskqzgSQRNXYVYWC6267-02-11 05:01:00 Test Item Value Reference Range Interpretation Comments PTT (test code = PTT) 25.9 s 22.9-35.8 [place] [id number] 14:36:00 Test Item Value Reference Range Interpretation [...] 0.00-0.01 N code = ETOHU) Comprehensive Metabolic Qujqc5050-11-39 14:36:00 Test Item Value Reference Range Interpretation [...] the National [employer],http ://nkd ep.nih.gov Urinalysis Ttgpilxv9419-83-71 14:32:00 Test Item Value Reference Range Interpretation Comments Color (test code = COLOR) Yellow Yellow,Straw,Pl N yellow Clarity (test code = Clear Clear N CLAR) Specific [place] (test 1.024 1.001-1.035 N code = SPGR) [...] code = Few /HPF BACT) CBC with Jzzxrfxwuiqr1617-37-23 14:21:00 Test Item Value Reference Range Interpretation [...] code = ALYMPH) 3.0 K/cumm 0.5-4.6 N [place] Abs (test code = AMONO) 0.5 K/cumm 0.0-1.2 N Eos Abs (test code = AEOS) 0.19 K/cumm 0.00-0.74 N Baso Abs (test code = ABASO) 0.1 K/cumm 0.00-0.21 N
[2021-06-04] MEDS ORDERED: ONDANSETRON 4 MG (ODT) TAB ONE (15:06)
[2021-06-04 17:05] LABS: Absolute Lymphocytes (CBC) 1.4 K/uL (0.7-4.9); Basophils % 0.4 % (0-1.3); Lymphocytes % 11.1 % (15.3-44.8); MPV 7.5 fL (7.6-11.3); RBC Red Blood Cell Count 4.32 M/uL (3.86-4.86)
[2021-06-04 17:06] LABS: Albumin 3.9 g/dL (3.4-5.0); Bilirubin Direct 0.1 mg/dL (0-0.2); Bilirubin Total 0.4 mg/dL (0.2-1.0); Potassium 3.5 mmol/L (3.5-5.1); Protein, Total 7.8 g/dL (6.4-8.2)
--- NOTE | 2021-06-04 18:19 | ER ---
Nurse's Notes [facility] Name: Tiffany Quinn Age: 50 yrs Sex: Female : 1970 Arrival Date: 06/04/2021 Time: 12:34 Bed 17 Private MD: Andrea Angel Diagnosis: Nausea Presentation: 06/04 14:40 Chief complaint: Patient states: nausea/vomiting/diarrhea x 3 days ago. Pt denies pain. aa5 Coronavirus screen: diarrhea, nausea, vomiting. Ebola Screen: Patient negative for fever greater than or equal to 101.5 degrees Fahrenheit, and additional compatible Ebola Virus Disease symptoms. Initial Sepsis Screen: Does the patient meet any 2 criteria? HR > 90 bpm. Does the patient have a suspected source of infection? No. Patient's initial sepsis screen is negative. Risk Assessment: Do you want to hurt yourself or someone else? Patient reports no desire to harm self or others. Onset of symptoms was May 2021. 14:40 Method Of Arrival: Ambulatory aa5 14:40 Acuity: MANUEL 3 aa5 Historical: - Allergies: 14:41 Haldol; aa5 14:41 Stadol; aa5 14:41 Toradol; aa5 - PMHx: 14:41 ADD/ADHD; Anxiety; Bipolar disorder; Hernia; Migraines; PSYCH PROBLEMS; Schizophrenia; aa5 unsure if she is; Seizures; - PSHx: 14:41 Breast sx x 2; Cholecystectomy; hernia; hiatal hernia; aa5 - Immunization history:: Client reports receiving the 2nd dose of the Covid vaccine. - Social history:: Smoking status: Patient denies any tobacco usage or history of. Screenin:13 Abuse screen: Denies threats or abuse. Denies injuries from another. Nutritional tr6 screening: No deficits noted. Tuberculosis screening: No symptoms or risk factors identified. Fall Risk None identified. Assessment: 16:23 Reassessment: pt difficult stick. lab called to draw blood. tr6 16:49 General: Appears distressed, uncomfortable, unkempt, Behavior is anxious. Pain: Denies tr6 pain. Neuro: No deficits noted. Cardiovascular: No deficits noted. Respiratory: No deficits noted. GI: Abdomen is flat, Reports nausea. : No deficits noted. EENT: No deficits noted. Derm: No deficits noted. Musculoskeletal: No deficits noted. Vital Signs: 14:40 BP 136 / 100; Pulse 115; Resp 20 S; Temp 98.9(O); Pulse Ox 98% on R/A; Weight 84.37 kg aa5 (R); Height 5 ft. 2 in. (157.48 cm) (R); 14:40 Body Mass Index 34.02 (84.37 kg, 157.48 cm) aa5 ED Course: 12:34 Patient arrived in ED. as 12:34 Andrea Angel MD is Private Physician. as 14:40 Arm band placed on. aa5 14:41 Triage completed. aa5 14:44 Patient placed in waiting room, Patient notified of wait time. aa5 15:56 Sheri Goodwin, JIGNA is Primary Nurse. tr6 16:02 Guanako Palomino [facility] jr8 16:02 Demarcus Mancilla MD is Attending Physician. jr8 16:13 Patient has correct armband on for positive identification. Bed in low position. Call tr6 light in reach. Side rails up X 1. Door closed. Noise minimized. Visitors limited. Lights dimmed. Moved to private room. 16:13 No provider procedures requiring assistance completed. tr6 18:19 Andrea Angel MD is Referral Physician. jr8 18:29 Patient did not have IV access during this emergency room visit. tr6 Administered Medications: 14:44 Drug: Zofran (Ondansetron) 4 mg Route: PO; aa5 16:44 Follow up: Response: Nausea unchanged tr6 18:28 Drug: Promethazine 50 mg Route: IM; Site: right gluteus; tr6 Outcome: 18:19 Discharge ordered by . jr8 18:28 Discharged to home ambulatory. tr6 18:28 Condition: good 18:28 Discharge instructions given to patient, Instructed on discharge instructions, follow up and referral plans. medication usage, safety practices, Demonstrated understanding of instructions, follow-up care, medications. 18:29 Patient left the ED. tr6 Signatures: Jewels Briggs Audri, RN RN aa5 Guanako Palomino PA PA jr8 Sheri Goodwin RN RN tr6 Corrections: (The following items were deleted from the chart) 14:42 14:41 Allergies: Pepcid; aa5 aa5
--- NOTE | 2021-06-04 18:19 | EDPHYS ---
Physician Documentation [facility] Name: Tiffany Quinn Age: 50 yrs Sex: Female : 1970 Arrival Date: 06/04/2021 Time: 12:34 Bed 17 Private MD: Andrea Angel ED Physician Demarcus Mancilla HPI: 06/04 18:17 This 50 yrs old Female presents to ER via Ambulatory with complaints of jr8 Nausea. 18:17 Onset: The symptoms/episode began/occurred acutely, yesterday. Possible causes: jr8 unknown. The symptoms are aggravated by nothing. The symptoms are alleviated by nothing. Associated signs and symptoms: The patient has no apparent associated signs or symptoms. Severity of symptoms: At their worst the symptoms were moderate in the emergency department the symptoms are unchanged. The patient has experienced similar episodes in the past, multiple times. The patient has been recently seen by a physician:. Patient seen yesterday in the emergency room for persistent nausea and vomiting and work-up including chest x-ray, CT, blood work. No acute findings at that time and was sent home. Patient has this chronically based on past medical history. Talk to her primary care physician today who will prescribe her meds. We will rule out any acute abnormalities but otherwise we will have her see gastroenterology in the near future.. Historical: - Allergies: 14:41 Haldol; aa5 14:41 Stadol; aa5 14:41 Toradol; aa5 - PMHx: 14:41 ADD/ADHD; Anxiety; Bipolar disorder; Hernia; Migraines; PSYCH PROBLEMS; Schizophrenia; aa5 unsure if she is; Seizures; - PSHx: 14:41 Breast sx x 2; Cholecystectomy; hernia; hiatal hernia; aa5 - Immunization history:: Client reports receiving the 2nd dose of the Covid vaccine. - Social history:: Smoking status: Patient denies any tobacco usage or history of. ROS: 18:17 Eyes: Negative for injury, pain, redness, and discharge, ENT: Negative for injury, jr8 pain, and discharge, Neck: Negative for injury, pain, and swelling, Cardiovascular: Negative for chest pain, palpitations, and edema, Respiratory: Negative for shortness of breath, cough, wheezing, and pleuritic chest pain, Back: Negative for injury and pain, MS/Extremity: Negative for injury and deformity, Skin: Negative for injury, rash, and discoloration, Neuro: Negative for headache, weakness, numbness, tingling, and seizure. 18:17 Abdomen/GI: Positive for nausea, Negative for abdominal pain, vomiting. Exam: 18:17 Constitutional: This is a well developed, well nourished patient who is awake, alert, jr8 and in no acute distress. ENT: Nares patent. No nasal discharge, no septal abnormalities noted. Tympanic membranes are normal and external auditory canals are clear. Oropharynx with no redness, swelling, or masses, exudates, or evidence of obstruction, uvula midline. Mucous membranes moist. Neck: Trachea midline, no thyromegaly or masses palpated, and no cervical lymphadenopathy. Supple, full range of motion without nuchal rigidity, or vertebral point tenderness. No Meningismus. Cardiovascular: Regular rate and rhythm with a normal S1 and S2. No gallops, murmurs, or rubs. Normal PMI, no JVD. No pulse deficits. Respiratory: Lungs have equal breath sounds bilaterally, clear to auscultation and percussion. No rales, rhonchi or wheezes noted. No increased work of breathing, no retractions or nasal flaring. Abdomen/GI: Soft, non-tender, with normal bowel sounds. No distension or tympany. No guarding or rebound. No evidence of tenderness throughout. Back: No spinal tenderness. No costovertebral tenderness. Full range of motion. Skin: Warm, dry with normal turgor. Normal color with no rashes, no lesions, and no evidence of cellulitis. MS/ Extremity: Pulses equal, no cyanosis. Neurovascular intact. Full, normal range of motion. Neuro: Awake and alert, GCS 15, oriented to person, place, time, and situation. Cranial nerves II-XII grossly intact. Motor strength 5/5 in all extremities. Sensory grossly intact. Vital Signs: 14:40 BP 136 / 100; Pulse 115; Resp 20 S; Temp 98.9(O); Pulse Ox 98% on R/A; Weight 84.37 kg aa5 (R); Height 5 ft. 2 in. (157.48 cm) (R); 14:40 Body Mass Index 34.02 (84.37 kg, 157.48 cm) aa5 MDM: 16:03 Patient medically screened. jr8 18:17 Data reviewed: vital signs, nurses notes, lab test result(s), and as a result, I will jr8 discharge patient. Data interpreted: Pulse oximetry: on room air is 98 %. Interpretation: normal. 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 Response to treatment: the patient's symptoms have markedly improved after treatment. 06/04 16:02 Order name: Basic Metabolic Panel; Complete Time: 18:17 jr8 06/04 16:02 Order name: CBC with Diff; Complete Time: 18:17 jr8 06/04 16:02 Order name: Hepatic Function; Complete Time: 18:17 jr8 06/04 16:02 Order name: Lipase; Complete Time: 18:17 jr8 06/04 16:02 Order name: Labs collected and sent; Complete Time: 16:44 jr8 Administered Medications: 14:44 Drug: Zofran (Ondansetron) 4 mg Route: PO; aa5 16:44 Follow up: Response: Nausea unchanged tr6 18:28 Drug: Promethazine 50 mg Route: IM; Site: right gluteus; tr6 Disposition: 06/05 07:20 Co-signature as Attending Physician, Demarcus Mancilla MD I agree with the assessment and kdr plan of care. Disposition Summary: 06/04/21 18:19 Discharge Ordered Location: Home jr8 Problem: new jr8 Symptoms: have improved jr8 Condition: Stable jr8 Diagnosis - Nausea jr8 Followup: jr8 - With: Andrea Angel MD - When: 1 - 2 days - Reason: Recheck today's complaints, Continuance of care, Re-evaluation by your physician Discharge Instructions: - Discharge Summary Sheet jr8 - Nausea, Adult jr8 Forms: - Medication Reconciliation Form jr8 - Thank You Letter jr8 - Antibiotic Education jr8 - Prescription Opioid Use jr8 Signatures: Dispatcher [employer] EDDemarcus Desir MD MD kdr Calderon, Audri, RN RN aa5 Guanako Palomino PA PA jr8 Sheri Goodwin RN RN tr6 Corrections: (The following items were deleted from the chart) 06/04 14:42 14:41 Allergies: Pepcid; [email or web address] aa5 16:47 16:02 IV Saline Lock ordered. kosta tr6
[2021-06-04 18:39] VITALS: BP 136/100; TEMP 98.9; O2SAT 98
[2021-06-04] MEDS ORDERED: PROMETHAZINE INJ 25 MG/ML AMP ONE (18:46)
== END 2021-06-04 18:29 | disposition home or self-care (01) ==
LOC: ER 12:33
DX: R11.0 Nausea (principal); Z88.5 Allergy status to narcotic agent
CPT/HCPCS: 85025; 80048; 36415; 80076; 83690; 96372; 99283; J2550

== ENCOUNTER 2021-07-11 16:22 | Emergency (ER) | payer OTHER ==
[2021-07-11 17:55] LABS: Absolute Lymphocytes (CBC) 2.2 K/uL (0.7-4.9); Basophils % 0.8 % (0-1.3); Hematocrit 34.6 % (36.0-45.0); Lymphocytes % 25.1 % (15.3-44.8); MPV 7.9 fL (7.6-11.3); RBC Red Blood Cell Count 3.94 M/uL (3.86-4.86)
[2021-07-11 17:56] LABS: Protime INR 0.9
[2021-07-11 18:12] LABS: ALT/SGPT 17 U/L (12-78); AST/SGOT 17 U/L (15-37); Albumin 3.4 g/dL (3.4-5.0); Alkaline Phosphatase 79 U/L (45-117); BUN Blood Urea Nitrogen 11 mg/dL (7-18); Bicarbonate 24 mmol/L (21-32); Bilirubin Direct < 0.1 mg/dL (0-0.2); Glucose Level 104 mg/dL (74-106); Magnesium 2.4 mg/dL (1.8-2.4); NT PRO-BNP 77 pg/mL (<125); Potassium 3.9 mmol/L (3.5-5.1); Protein, Total 6.8 g/dL (6.4-8.2); Sodium Level 141 mmol/L (136-145); Troponin (Emerg Dept Use Only) < 0.02 ng/mL (0.0-0.045)
--- NOTE | 2021-07-11 18:19 | RAD REPORT ---
EXAM DESCRIPTION: [place] Single View07/11/2021 5:53 pm CLINICAL HISTORY: Chest pain COMPARISON: May 2021 FINDINGS: The lungs appear clear of acute infiltrate. The heart is normal size IMPRESSION: No acute abnormalities displayed
[2021-07-11 18:23] LABS: Bilirubin Total < 0.1 mg/dL (0.2-1.0)
[2021-07-11] MEDS ORDERED: LORazepam 2 MG/ML VIAL ONE (18:38)
[2021-07-11] MEDS ORDERED: LORAZEPAM 1 MG TABLET ONE (18:43)
--- NOTE | 2021-07-11 19:13 | ER ---
Nurse's Notes [facility] Name: Tiffany Quinn Age: 50 yrs Sex: Female : 1970 Arrival Date: 07/11/2021 Time: 16:37 Bed 30 Private MD: Diagnosis: Anxiety disorder, unspecified;Chest pain, unspecified Presentation: 07/11 16:37 Chief complaint: Patient states: c/o chest russell times one day. positive sob. positive kh1 n/v/d. states has not been around covid. states history of anxiety. Coronavirus screen: Vaccine status: Patient reports receiving the 2nd dose of the covid vaccine. unknown date. Ebola Screen: No symptoms or risks identified at this time. Initial Sepsis Screen: Does the patient meet any 2 criteria? No. Patient's initial sepsis screen is negative. Does the patient have a suspected source of infection? No. Patient's initial sepsis screen is negative. Risk Assessment: Do you want to hurt yourself or someone else? Patient reports no desire to harm self or others. Onset of symptoms was July 11, 2021. 16:37 Method Of Arrival: EMS: [facility] 16:37 Acuity: MANUEL 2 [facility] Triage Assessment: 16:40 General: Appears in no apparent distress. Behavior is calm, cooperative, appropriate [facility] for age. Pain: Complains of pain in chest Pain does not radiate. Pain currently is 10 out of 10 on a pain scale. Quality of pain is described as sharp, Pain began gradually, Aggravated by. 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 - Social history:: Smoking status: Patient/guardian denies using tobacco, the patient reports quitting approximately 20 years ago, Patient/guardian denies using alcohol, street drugs, tobacco products. Screenin:43 Abuse screen: Denies threats or abuse. Nutritional screening: No deficits noted. 1 Tuberculosis screening: No symptoms or risk factors identified. Fall Risk None identified. Assessment: 16:42 Neuro: No deficits noted. Level of Consciousness is awake, alert, obeys commands, kh1 Oriented to person, place, time, Nub Card Tender are equal bilaterally Moves all extremities. Gait is Speech is normal, Facial symmetry appears normal. Cardiovascular: No deficits noted. Reports chest pain, nausea, shortness of breath, vomiting. 17:30 Reassessment: Patient appears in no apparent distress at this time. No changes from [facility] previously documented assessment. Patient and/or family updated on plan of care and expected duration. Pain level reassessed. Patient is alert, oriented x 3, equal unlabored respirations, skin warm/dry/pink. 18:54 Reassessment: Patient appears in no apparent distress at this time. No changes from [facility] previously documented assessment. Patient and/or family updated on plan of care and expected duration. Pain level reassessed. Patient is alert, oriented x 3, equal unlabored respirations, skin warm/dry/pink. Vital Signs: 16:37 BP 115 / 66; Pulse 76; Resp 20; Temp 99.6; Pulse Ox 96% on R/A; Weight 84.37 kg; Height [facility] 5 ft. 2 in. (157.48 cm); Pain 10/10; 16:42 BP 115 / 66; Pulse 76; Resp 20; Temp 99.6; Pulse Ox 96% on R/A; kh1 18:00 BP 122 / 84; Pulse 76; Resp 19; Pulse Ox 97% on R/A; kh1 16:37 Body Mass Index 34.02 (84.37 kg, 157.48 cm) [facility] ED Course: 16:37 Patient arrived in ED. kh1 16:37 Marcia Cage is Primary Nurse. 1 16:40 Triage completed. kh1 16:42 Arm band placed on right wrist. kh1 16:43 Patient has correct armband on for positive identification. Bed in low position. Call [facility] light in reach. Side rails up X2. 16:43 No provider procedures requiring assistance completed. kh1 16:46 Demarcus Mancilla MD is Attending Physician. kdr 17:42 Basic Metabolic Panel Sent. kh1 17:43 CBC with Diff Sent. kh1 17:43 LFT's Sent. kh1 17:43 Magnesium Sent. kh1 17:43 NT PRO-BNP Sent. kh1 17:43 PT-INR Sent. kh1 17:43 Troponin (emerg Dept Use Only) Sent. kh1 17:53 XRAY Chest (1 view) In Process Unspecified. EDMS 19:20 IV discontinued, intact, bleeding controlled, No redness/swelling at site. Pressure [facility] dressing applied. Administered Medications: 18:31 Drug: Ativan (LORazepam) 1 mg Route: PO; [facility] Outcome: 19:12 Discharge ordered by . kdr 19:20 Discharged to home [facility] 19:20 Condition: good 19:20 Discharge instructions given to patient, Instructed on discharge instructions, follow up and referral plans. medication usage, Demonstrated understanding of instructions, follow-up care, medications, Prescriptions given X 1. 19:21 Patient left the ED. [facility] Signatures: Dispatcher [employer] EDMS Demarcus Mancilla MD MD kdr Marcia Cage [facility] Corrections: (The following items were deleted from the chart) 16:41 16:40 PMHx: Migraines; [place] [address] 16:41 16:40 PMHx: PSYCH PROBLEMS; [place] [address] 16:41 16:40 PMHx: Schizophrenia; unsure if she is; [place] [address] 16:41 16:40 PMHx: ADD/ADHD; [place] [address] 16:41 16:40 PMHx: Hernia; [place] [address] 16:41 16:40 PMHx: Seizures; [place] [address] 16:41 16:40 PMHx: Bipolar disorder; [place] [address] 16:41 16:40 PMHx: Anxiety; [place] [address] 16:41 16:40 PSHx: Cholecystectomy; [place] [address] 16:41 16:40 PSHx: hiatal hernia; [place] [address] 16:41 16:40 PSHx: hernia; [place] [address] 16:41 16:40 PSHx: Breast sx x 2; [place] [address] 19:15 18:31 CORONAVIRUS+MR.LAB.BRZ drawn and sent. [facility] EDUT
--- NOTE | 2021-07-11 19:13 | EDPHYS ---
[facility] Name: Tiffany Quinn Age: 50 yrs Sex: Female : 1970 Arrival Date: 07/11/2021 Time: 16:37 Bed 30 Private MD: ED Physician Demarcus Mancilla HPI: 07/11 17:37 This 50 yrs old Female presents to ER via EMS with complaints of Anxiety with kdr nausea vomiting and chest discomfort. 17:37 Patient states that she is been anxious for the last day or 2. She also indicated kdr associated with this she has had some chest discomfort nausea vomiting. She states that in the past she has needed medicine for her anxiety and the similar situation. Onset: The symptoms/episode began/occurred gradually, 2 day(s) ago. Severity of symptoms: At their worst the symptoms were mild in the emergency department the symptoms are unchanged. The patient has experienced similar episodes in the past, multiple times. The patient has not recently seen a physician. 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 - Social history:: Smoking status: Patient/guardian denies using tobacco, the patient reports quitting approximately 20 years ago, Patient/guardian denies using alcohol, street drugs, tobacco products. ROS: 17:37 Constitutional: Negative for fever, chills, and weight loss, Eyes: Negative for injury, kdr pain, redness, and discharge, ENT: Negative for injury, pain, and discharge, Neck: Negative for injury, pain, and swelling, Back: Negative for injury and pain, : Negative for injury, bleeding, discharge, and swelling, MS/Extremity: Negative for injury and deformity, Skin: Negative for injury, rash, and discoloration, Neuro: Negative for headache, weakness, numbness, tingling, and seizure activity. Allergy/Immunology: Negative for hives, rash, and allergies, Endocrine: Negative for neck swelling, polydipsia, polyuria, polyphagia, and marked weight changes, Hematologic/Lymphatic: Negative for swollen nodes, abnormal bleeding, and unusual bruising. 17:37 Cardiovascular: Positive for chest pain, palpitations, Negative for edema, orthopnea, paroxysmal nocturnal dyspnea. 17:37 Respiratory: Positive for shortness of breath, Negative for cough, dyspnea on exertion, hemoptysis, orthopnea. 17:37 Psych: Positive for anxiety, Negative for depression, drug dependence, alcohol dependence, auditory hallucinations, visual hallucinations, homicidal ideation, insomnia. Exam: 17:37 Constitutional: This is a well developed, well nourished patient who is awake, alert, kdr and in mild distress. Patient appears very anxious and animated Head/Face: Normocephalic, atraumatic. Eyes: Pupils equal round and reactive to light, extra-ocular motions intact. Lids and lashes normal. Conjunctiva and sclera are non-icteric and not injected. Cornea within normal limits. Periorbital areas with no swelling, redness, or edema. Neck: Trachea midline, no thyromegaly or masses palpated, and no cervical lymphadenopathy. Supple, full range of motion without nuchal rigidity, or vertebral point tenderness. No Meningismus. Chest/axilla: Normal chest wall appearance and motion. Nontender with no deformity. No lesions are appreciated. Cardiovascular: Regular rate and rhythm with a normal S1 and S2. No gallops, murmurs, or rubs. Normal PMI, no JVD. No pulse deficits. Respiratory: Lungs have equal breath sounds bilaterally, clear to auscultation and percussion. No rales, rhonchi or wheezes noted. No increased work of breathing, no retractions or nasal flaring. Abdomen/GI: Soft, non-tender, with normal bowel sounds. No distension or tympany. No guarding or rebound. No evidence of tenderness throughout. Back: No spinal tenderness. No costovertebral tenderness. Full range of motion. Skin: Warm, dry with normal turgor. Normal color with no rashes, no lesions, and no evidence of cellulitis. MS/ Extremity: Pulses equal, no cyanosis. Neurovascular intact. Full, normal range of motion. Neuro: Awake and alert, GCS 15, oriented to person, place, time, and situation. Cranial nerves II-XII grossly intact. Motor strength 5/5 in all extremities. Sensory grossly intact. Cerebellar exam normal. Normal gait. Psych: Awake, alert, with orientation to person, place and time. Behavior, mood, and affect are within normal limits. 07/12 08:25 ECG was reviewed by the Attending Physician. kdr Vital Signs: 07/11 16:37 BP 115 / 66; Pulse 76; Resp 20; Temp 99.6; Pulse Ox 96% on R/A; Weight 84.37 kg; Height kh1 5 ft. 2 in. (157.48 cm); Pain 10/10; 16:42 BP 115 / 66; Pulse 76; Resp 20; Temp 99.6; Pulse Ox 96% on R/A; kh1 18:00 BP 122 / 84; Pulse 76; Resp 19; Pulse Ox 97% on R/A; kh1 16:37 Body Mass Index 34.02 (84.37 kg, 157.48 cm) [facility] MDM: 17:37 Data reviewed: vital signs, nurses notes, lab test result(s), radiologic studies. kdr Counseling: I had a detailed discussion with the patient and/or guardian regarding: the historical points, exam findings, and any diagnostic results supporting the discharge/admit diagnosis, lab results, radiology results, the need for outpatient follow up. 19:12 Patient medically screened. [facility] 07/11 17:29 Order name: Basic Metabolic Panel; Complete Time: 19:11 07/11 17:29 Order name: CBC with Diff; Complete Time: 18:05 07/11 17:29 Order name: LFT's; Complete Time: 19:11 07/11 17:29 Order name: Magnesium; Complete Time: 19:11 07/11 17:29 Order name: NT PRO-BNP; Complete Time: 19:11 07/11 17:29 Order name: PT-INR; Complete Time: 18:05 07/11 17:29 Order name: Troponin (emerg Dept Use Only); Complete Time: 19:11 07/11 17:29 Order name: XRAY Chest (1 view); Complete Time: 19:11 07/11 17:29 Order name: EKG; Complete Time: 17:30 07/11 17:29 Order name: Cardiac monitoring; Complete Time: 17:43 07/11 17:29 Order name: EKG - Nurse/Tech; Complete Time: 18:31 07/11 17:29 Order name: IV Saline Lock; Complete Time: 17:43 07/11 17:29 Order name: Labs collected and sent; Complete Time: 17:43 07/11 17:29 Order name: O2 Per Protocol; Complete Time: 17:43 07/11 17:29 Order name: O2 Sat Monitoring; Complete Time: 17:43 EC/18 08:25 Rate is 52 beats/min. Rhythm is regular, Junctional rhythm with No ectopy. QRS [place] is kdr Normal. MD interval is normal. Clinical impression: Junctional rhythm. Administered Medications: 07/11 18:31 Drug: Ativan (LORazepam) 1 mg Route: PO; [facility] Disposition Summary: 07/11/21 19:12 Discharge Ordered Location: Home kdr Problem: an acute exacerbation kdr Symptoms: have improved kdr Condition: Stable kdr Diagnosis - Anxiety disorder, unspecified kdr - Chest pain, unspecified kdr Followup: kdr - With: Private Physician - When: 2 - 3 days - Reason: If symptoms return, Further diagnostic work-up, Recheck today's complaints, Continuance of care, Re-evaluation by your physician Discharge Instructions: - Discharge Summary Sheet kdr - Nonspecific Chest Pain, Adult, [id number] kdr - Panic Attack, [id number] kdr - Generalized Anxiety Disorder, Adult kdr Forms: - Medication Reconciliation Form kdr - Thank You Letter kdr Prescriptions: - Ativan 1 mg Oral Tablet - take 1 tablet by ORAL route every 8 hours As needed; 10 tablet; Refills: 0, kdr Product Selection Permitted 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: 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 [employer] EDMS Demarcus Mancilla MD MD kdr Chante Warenr RN RN iw Marcia Cage [facility] Corrections: (The following items were deleted from the chart) 16:41 16:40 PMHx: Migraines; [place] [id number] 16:41 16:40 PMHx: PSYCH PROBLEMS; [place] [id number] 16:41 16:40 PMHx: Schizophrenia; unsure if she is; [place] [id number] 16:41 16:40 PMHx: ADD/ADHD; [place] [id number] 16:41 16:40 PMHx: Hernia; [place] [id number] 16:41 16:40 PMHx: Seizures; [place] [id number] 16:41 16:40 PMHx: Bipolar disorder; [place] [id number] 16:41 16:40 PMHx: Anxiety; [place] [id number] 16:41 16:40 PSHx: Cholecystectomy; [place] [id number] 16:41 16:40 PSHx: hiatal hernia; [place] [id number] 16:41 16:40 PSHx: hernia; [email or web address] 16:41 16:40 PSHx: Breast sx x 2; kh1 kh1 19:15 17:36 CORONAVIRUS+MRJOSE GUADALUPE.BRZ ordered. EDMS EDMS
[2021-07-11 20:57] VITALS: TEMP 99.6
[2021-07-11 21:00] VITALS: BP 122/84; O2SAT 97
== END 2021-07-11 19:21 | disposition home or self-care (01) ==
LOC: ER 16:22
DX: F41.9 Anxiety disorder, unspecified (principal); Z20.822 Contact with and (suspected) exposure to COVID-19
CPT/HCPCS: 93005; 85025; 80048; 36415; 83735; 85610; 80076; 84484; 83880; 71045; 99284; U0003

== ENCOUNTER 2021-08-07 15:00 | Emergency (ER) | payer OTHER ==
[2021-08-07] MEDS ORDERED: LORAZEPAM 1 MG TABLET ONE (17:33)
[2021-08-07] MEDS ORDERED: clonazePAM 1 MG TAB ONE (17:34)
--- NOTE | 2021-08-07 17:39 | ER ---
Nurse's Notes [facility] Name: Tiffany Quinn Age: 50 yrs Sex: Female : 1970 Arrival Date: 08/07/2021 Time: 15:10 Bed 11 Private MD: Diagnosis: Anxiety disorder, unspecified;Vomiting, unspecified;Bipolar disorder, unspecified Presentation: 08/07 15:27 Chief complaint: Patient states: that she feels very anxious. She states that she has a ap3 hx of anxiety but doesn't take any medications for it, just goes to the hospital when she feels like this. She states she feels like her heart is going to beat out of her chest. Coronavirus screen: At this time, the client does not indicate any symptoms associated with coronavirus-19. Ebola Screen: No symptoms or risks identified at this time. Initial Sepsis Screen: Does the patient meet any 2 criteria? No. Patient's initial sepsis screen is negative. Does the patient have a suspected source of infection? No. Patient's initial sepsis screen is negative. Risk Assessment: Do you want to hurt yourself or someone else? Patient reports no desire to harm self or others. Onset of symptoms was August 07, 2021. 15:27 Method Of Arrival: EMS: [facility] ap3 15:27 Acuity: MANUEL 4 ap3 Triage Assessment: 15:31 General: Appears comfortable, Behavior is anxious, restless. Pain: Denies pain. Neuro: ap3 Level of Consciousness is awake, alert, obeys commands, Oriented to person, place, time, situation, Appropriate for age Gait is steady, Speech is normal. Cardiovascular: Patient's skin is warm and dry. Respiratory: Airway is patent. 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 - Social history:: Smoking status: Patient denies any tobacco usage or history of. - Family history:: not pertinent. Assessment: 16:30 Reassessment: No changes from previously documented assessment. Patient and/or family ll1 updated on plan of care and expected duration. Pain level reassessed. Patient is alert, oriented x 3, equal unlabored respirations, skin warm/dry/pink. 17:30 Reassessment: No changes from previously documented assessment. Patient and/or family ll1 updated on plan of care and expected duration. Pain level reassessed. Patient is alert, oriented x 3, equal unlabored respirations, skin warm/dry/pink. 17:57 Reassessment: No changes from previously documented assessment. Patient and/or family ll1 updated on plan of care and expected duration. Pain level reassessed. Patient is alert, oriented x 3, equal unlabored respirations, skin warm/dry/pink. Vital Signs: 15:27 BP 129 / 76; Pulse 85; Resp 24; Temp 98.4(TE); Pulse Ox 99% on R/A; Weight 83.91 kg; ap3 Height 5 ft. 2 in. (157.48 cm); 17:57 BP 121 / 71; Pulse 80; Resp 20; Pulse Ox 99% on R/A; ll1 15:27 Body Mass Index 33.84 (83.91 kg, 157.48 cm) ap3 ED Course: 15:10 Patient arrived in ED. rg4 15:29 Triage completed. ap3 15:32 Arm band placed on right wrist. ap3 16:46 Patient placed in an exam room, on a stretcher. ll1 17:04 Lorrie Ham RN is Primary Nurse. ll1 17:04 Bill Palm MD is Attending Physician. jo 17:38 Andrea Angel MD is Referral Physician. jo 17:54 Chilo Smith MD is Referral Physician. jo Administered Medications: 17:12 Drug: Ativan (LORazepam) 1 mg Route: PO; ll1 17:58 Follow up: Response: No adverse reaction; RASS: Alert and Calm (0) ll1 17:12 Drug: KLONopin (clonazePAM) 1 mg Route: PO; ll1 17:58 Follow up: Response: No adverse reaction; RASS: Alert and Calm (0) ll1 Outcome: 17:38 Discharge ordered by . jo 17:58 Patient left the ED. 1 Signatures: Bill Palm MD MD cha Garcia, Rubi rg4 Shawna Lim RN RN ap3 Lorrie Ham RN RN ll1
--- NOTE | 2021-08-07 17:39 | EDPHYS ---
Physician Documentation [facility] Name: Tiffany Quinn Age: 50 yrs Sex: Female : 1970 Arrival Date: 08/07/2021 Time: 15:10 Bed 11 Private MD: ED Physician Bill Palm HPI: 08/07 17:34 This 50 yrs old Female presents to ER via EMS with complaints of Anxiety. [facility] 17:34 The patient presents to the emergency department with anxiety. The patient presents to [facility] the emergency department with anxiety, over unknown circumstances. Onset: The symptoms/episode began/occurred 2 day(s) ago. Past psychiatric history: Prior diagnosis: bipolar disorder, Psychiatric medications include: see shreyas. Associated signs and symptoms: Pertinent positives; anxiety, headache, nausea, vomiting. Severity of symptoms: At their worst the symptoms were mild today, in the emergency department the symptoms are unchanged despite home interventions. The patient has experienced similar episodes in the past, multiple times. 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 - Social history:: Smoking status: Patient denies any tobacco usage or history of. - Family history:: not pertinent. ROS: 17:34 Constitutional: Negative for fever, chills, and weight loss, Eyes: Negative for injury, jo pain, redness, and discharge, ENT: Negative for injury, pain, and discharge, Neck: Negative for injury, pain, and swelling, Cardiovascular: Negative for chest pain, palpitations, and edema, Respiratory: Negative for shortness of breath, cough, wheezing, and pleuritic chest pain, Abdomen/GI: Negative for abdominal pain, nausea, vomiting, diarrhea, and constipation, Back: Negative for injury and pain, : Negative for injury, bleeding, discharge, and swelling, MS/Extremity: Negative for injury and deformity, Skin: Negative for injury, rash, and discoloration, Neuro: Negative for headache, weakness, numbness, tingling, and seizure, Psych: Negative for depression, anxiety, suicide ideation, homicidal ideation, and hallucinations, Allergy/Immunology: Negative for hives, rash, and allergies, Endocrine: Negative for neck swelling, polydipsia, polyuria, polyphagia, and marked weight changes, Hematologic/Lymphatic: Negative for swollen nodes, abnormal bleeding, and unusual bruising. Exam: 17:34 Constitutional: This is a well developed, well nourished patient who is awake, alert, jo and in no acute distress. Head/Face: Normocephalic, atraumatic. Eyes: Pupils equal round and reactive to light, extra-ocular motions intact. Lids and lashes normal. Conjunctiva and sclera are non-icteric and not injected. Cornea within normal limits. Periorbital areas with no swelling, redness, or edema. ENT: Nares patent. No nasal discharge, no septal abnormalities noted. Tympanic membranes are normal and external auditory canals are clear. Oropharynx with no redness, swelling, or masses, exudates, or evidence of obstruction, uvula midline. Mucous membranes moist. Neck: Trachea midline, no thyromegaly or masses palpated, and no cervical lymphadenopathy. Supple, full range of motion without nuchal rigidity, or vertebral point tenderness. No Meningismus. Chest/axilla: Normal chest wall appearance and motion. Nontender with no deformity. No lesions are appreciated. Cardiovascular: Regular rate and rhythm with a normal S1 and S2. No gallops, murmurs, or rubs. Normal PMI, no JVD. No pulse deficits. Respiratory: Lungs have equal breath sounds bilaterally, clear to auscultation and percussion. No rales, rhonchi or wheezes noted. No increased work of breathing, no retractions or nasal flaring. Abdomen/GI: Soft, non-tender, with normal bowel sounds. No distension or tympany. No guarding or rebound. No evidence of tenderness throughout. Back: No spinal tenderness. No costovertebral tenderness. Full range of motion. Skin: Warm, dry with normal turgor. Normal color with no rashes, no lesions, and no evidence of cellulitis. MS/ Extremity: Pulses equal, no cyanosis. Neurovascular intact. Full, normal range of motion. Neuro: Awake and alert, GCS 15, oriented to person, place, time, and situation. Cranial nerves II-XII grossly intact. Motor strength 5/5 in all extremities. Sensory grossly intact. Cerebellar exam normal. Normal gait. Psych: Awake, alert, with orientation to person, place and time. Behavior, mood, and affect are within normal limits. 17:34 Musculoskeletal/extremity: DVT Exam: No signs of deep vein thrombosis. no pain, no swelling, no tenderness, negative Homans' sign noted on exam, no appreciated bluish discoloration, no erythema, no increased warmth. 17:37 ECG was reviewed by the Attending Physician. jo Vital Signs: 15:27 BP 129 / 76; Pulse 85; Resp 24; Temp 98.4(TE); Pulse Ox 99% on R/A; Weight 83.91 kg; ap3 Height 5 ft. 2 in. (157.48 cm); 17:57 BP 121 / 71; Pulse 80; Resp 20; Pulse Ox 99% on R/A; ll1 15:27 Body Mass Index 33.84 (83.91 kg, 157.48 cm) ap3 MDM: 17:04 Patient medically screened. jo 17:36 Differential diagnosis: depression. Data reviewed: vital signs, nurses notes. Data jo interpreted: quality assurance monitor chassis: not applicable for this patient encounter. rate is 85 beats/min, rhythm is regular, Pulse oximetry: on room air is 99 %. Test interpretation: by ED physician or midlevel provider: ECG. 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 08/07 17:05 Order name: EKG; Complete Time: 17:06 [facility] 08/07 17:05 Order name: EKG - Nurse/Tech; Complete Time: 17:06 [facility] EC:37 Rate is 74 beats/min. Rhythm is regular. QRS [place] is Normal. [place] interval is normal. QRS jo interval is normal. QT interval is normal. No Q waves. T waves are Normal. No ST changes noted. Clinical impression: Normal ECG and No evidence of ischemia. Interpreted by me. Reviewed by me. Administered Medications: 17:12 Drug: Ativan (LORazepam) 1 mg Route: PO; ll1 17:58 Follow up: Response: No adverse reaction; RASS: Alert and Calm (0) ll1 17:12 Drug: KLONopin (clonazePAM) 1 mg Route: PO; ll1 17:58 Follow up: Response: No adverse reaction; RASS: Alert and Calm (0) ll1 Disposition Summary: 08/07/21 17:38 Discharge Ordered Location: Home jo Problem: new jo Symptoms: have improved jo Condition: Stable jo Diagnosis - Anxiety disorder, unspecified jo - Vomiting, unspecified jo - Bipolar disorder, unspecified jo Followup: jo - With: Andrea Angel MD - When: 2 - 3 days - Reason: Recheck today's complaints, Continuance of care, Re-evaluation by your physician Followup: jo - With: Chilo Smith MD - When: 2 - 3 days - Reason: Recheck today's complaints, Re-evaluation by your physician Discharge Instructions: - Discharge Summary Sheet jo - Nausea and Vomiting, Adult jo - Nausea and Vomiting, Adult, [id number] jo - Mixed Bipolar Disorder jo Forms: - Medication Reconciliation Form jo - Thank You Letter jo - Antibiotic Education jo - Prescription Opioid Use [facility] Prescriptions: - Klonopin 0.5 mg Oral Tablet - take 1 tablet by ORAL route every 12 hours As needed; 20 tablet; Refills: 0, [facility] Product Selection Permitted - Zofran 4 mg Oral Tablet - take 1 tablet by ORAL route every 12 hours As needed; 20 tablet; Refills: 0, [facility] Product Selection Permitted Signatures: Bill Palm MD MD cha Prokisch, Amanda, RN RN ap3 Lorrie Ham RN RN ll1
[2021-08-07 18:14] VITALS: TEMP 98.4; O2SAT 99
[2021-08-07 18:18] VITALS: BP 121/71
--- NOTE | 2021-08-09 11:47 | EKG ---
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
== END 2021-08-07 17:58 | disposition home or self-care (01) ==
LOC: ER 15:00
DX: R11.10 Vomiting, unspecified (principal); F31.9 Bipolar disorder, unspecified; Z88.5 Allergy status to narcotic agent; Z88.8 Allergy status to other drugs, medicaments and biological substances; Z98.82 Breast implant status
CPT/HCPCS: 93005; 99283

== ENCOUNTER 2021-08-23 13:47 | Emergency (ER) | payer OTHER ==
[2021-08-23 14:27] LABS: Urine Blood Negative (Negative); Urine Glucose Negative (Negative); Urine Protein 1+ (Negative); Urine Specific Gravity >=1.030 (1.005-1.030); Urine pH 5.5 (5.0-7.0)
[2021-08-23 14:47] LABS: Barbiturates NEGATIVE (NEGATIVE); Benzodiazepines NEGATIVE (NEGATIVE); Cocaine NEGATIVE (NEGATIVE); METHAMPHETAM POSITIVE (NEGATIVE); Methadone NEGATIVE (NEGATIVE); Opiates NEGATIVE (NEGATIVE); Phencyclidine NEGATIVE (NEGATIVE); THC Cannibis NEGATIVE (NEGATIVE)
[2021-08-23 15:00] LABS: Basophils % 0.7 % (0-1.3); Hematocrit 41.3 % (36.0-45.0); Lymphocytes % 26.4 % (15.3-44.8); MPV 7.8 fL (7.6-11.3); RBC Red Blood Cell Count 4.83 M/uL (3.86-4.86)
[2021-08-23] MEDS ORDERED: LORazepam 2 MG/ML VIAL ONE (15:02)
[2021-08-23 15:03] LABS: Protime INR 1.05
--- NOTE | 2021-08-23 15:08 | ER ---
Nurse's Notes [facility] Name: Tiffany Quinn Age: 51 yrs Sex: Female : 1970 Arrival Date: 08/23/2021 Time: 13:54 Bed 7 Private MD: Diagnosis: Delusional disorders Presentation: 08/23 13:54 Chief complaint: EMS states: they were called by the patient who was complaining of an ap3 inability to shower. patient reported to EMS that she is Bipolar but has not been taking her medication for approx one week. It is reported patient has been using Methamphetamine's. Coronavirus screen: At this time, the client does not indicate any symptoms associated with coronavirus-19. Ebola Screen: No symptoms or risks identified at this time. Initial Sepsis Screen: Does the patient meet any 2 criteria? No. Patient's initial sepsis screen is negative. Does the patient have a suspected source of infection? No. Patient's initial sepsis screen is negative. Risk Assessment: Do you want to hurt yourself or someone else? Patient reports no desire to harm self or others. Onset of symptoms was August 23, 2021. 13:54 Method Of Arrival: EMS: [facility] ap3 13:54 Acuity: MANUEL 3 ap3 Triage Assessment: 13:57 General: Appears in no apparent distress. Behavior is anxious, restless. General: ap3 Patient appears to be restless, and speaks rapidly. Patient states she has been using methamphetamine's recently. . Pain: Denies pain. Neuro: Level of Consciousness is awake, alert, obeys commands, Oriented to person, place, time, situation, Speech is normal. Cardiovascular: Patient's skin is warm and dry. Respiratory: Airway is patent. 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 - Social history:: Smoking status: Patient reports the use of cigarette tobacco products, smokes one pack cigarettes per day. Patient uses street drugs, Methamphetamine (Meth). - Family history:: not pertinent. - Hospitalizations: : No recent hospitalization is reported. Screenin:56 Abuse screen: Denies threats or abuse. Nutritional screening: No deficits noted. ap3 Tuberculosis screening: No symptoms or risk factors identified. Fall Risk No fall in past 12 months (0 pts). No secondary diagnosis (0 pts). IV access (20 points). Ambulatory Aid- None/Bed Rest/Nurse Assist (0 pts). Gait- Impaired (20 pts.). Mental Status- Oriented to own ability (0 pts). Total Ramirez Fall Scale indicates Low Risk Score (25-44 pts). Fall prevention measures have been instituted. Side Rails Up X 2 Placed close to Nursing Station Frequent Obs/Assesments occuring As available Patient and Family Educated on Fall Prevention Program and strategies. Assessment: 14:52 Reassessment: Patient and/or family updated on plan of care and expected duration. Pain ap3 level reassessed. Patient is alert, oriented x 3, equal unlabored respirations, skin warm/dry/pink. patient still appears anxious, and restless. Vital Signs: 13:54 BP 139 / 89; Pulse 99; Resp 19; Pulse Ox 98% on R/A; Weight 95.25 kg; Height 5 ft. 5 ap3 in. (165.10 cm); 14:52 BP 112 / 87; Pulse 87; Resp 19; Pulse Ox 93% on R/A; ap3 13:54 Body Mass Index 34.95 (95.25 kg, 165.10 cm) ap3 ED Course: 13:54 Patient arrived in ED. am2 13:54 Shawna Lim, JIGNA is Primary Nurse. ap3 13:56 Triage completed. ap3 13:57 James Eric MD is Attending Physician. ma2 13:58 Arm band placed on right wrist. ap3 13:58 Patient has correct armband on for positive identification. Bed in low position. Call ap3 light in reach. Side rails up X2. property assessment monitor on. Pulse ox on. NIBP on. Door closed. 15:14 No provider procedures requiring assistance completed. IV discontinued, intact, ap3 bleeding controlled, No redness/swelling at site. Pressure dressing applied. Administered Medications: 14:28 Drug: Ativan (LORazepam) 1 mg Route: IVP; Site: right forearm; ap3 15:14 Follow up: Response: No adverse reaction; Anxiety decreased ap3 Outcome: 15:07 Discharge ordered by . ma2 15:14 Discharged to home ambulatory. ap3 15:14 Condition: good 15:14 Discharge instructions given to patient, Instructed on discharge instructions, follow up and referral plans. Demonstrated understanding of instructions, follow-up care, Prescriptions given X 15:43 Patient left the ED. ap3 Signatures: Shawna Malcolm Mohammad, MD MD ma2 Prokisch, Amanda, RN RN ap3
--- NOTE | 2021-08-23 15:08 | EDPHYS ---
Physician Documentation [facility] Name: Tiffany Quinn Age: 51 yrs Sex: Female : 1970 Arrival Date: 08/23/2021 Time: 13:54 Bed 7 Private MD: ED Physician James Eric HPI: 08/23 14:22 This 51 yrs old Female presents to ER via EMS with complaints of Anxiety. ma2 14:22 The patient presents to the emergency department with anxiety, paranoia. Onset: The ma2 symptoms/episode began/occurred gradually, 1 week(s) ago. Associated signs and symptoms: Pertinent negatives: chills, depression, hallucinations, nausea, shortness of breath, substance abuse, tremor. Severity of symptoms: At their worst the symptoms were mild in the emergency department the symptoms are unchanged. The patient has experienced similar episodes in the past. stopped taking her lithium . 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 - Social history:: Smoking status: Patient reports the use of cigarette tobacco products, smokes one pack cigarettes per day. Patient uses street drugs, Methamphetamine (Meth). - Family history:: not pertinent. - Hospitalizations: : No recent hospitalization is reported. ROS: 14:22 Constitutional: Negative for fever, chills, and weight loss. ma2 14:22 All other systems are negative. Exam: 14:22 Constitutional: This is a well developed, well nourished patient who is awake, alert, ma2 and in no acute distress. Head/Face: Normocephalic, atraumatic. Eyes: Pupils equal round and reactive to light, extra-ocular motions intact. Lids and lashes normal. Conjunctiva and sclera are non-icteric and not injected. Cornea within normal limits. Periorbital areas with no swelling, redness, or edema. ENT: Nares patent. No nasal discharge, no septal abnormalities noted. Tympanic membranes are normal and external auditory canals are clear. Oropharynx with no redness, swelling, or masses, exudates, or evidence of obstruction, uvula midline. Mucous membranes moist. Neck: Trachea midline, no thyromegaly or masses palpated, and no cervical lymphadenopathy. Supple, full range of motion without nuchal rigidity, or vertebral point tenderness. No Meningismus. Chest/axilla: Normal chest wall appearance and motion. Nontender with no deformity. No lesions are appreciated. Cardiovascular: Regular rate and rhythm with a normal S1 and S2. No gallops, murmurs, or rubs. Normal PMI, no JVD. No pulse deficits. Respiratory: Lungs have equal breath sounds bilaterally, clear to auscultation and percussion. No rales, rhonchi or wheezes noted. No increased work of breathing, no retractions or nasal flaring. Abdomen/GI: Soft, non-tender, with normal bowel sounds. No distension or tympany. No guarding or rebound. No evidence of tenderness throughout. Skin: Warm, dry with normal turgor. Normal color with no rashes, no lesions, and no evidence of cellulitis. MS/ Extremity: Pulses equal, no cyanosis. Neurovascular intact. Full, normal range of motion. Neuro: Awake and alert, GCS 15, oriented to person, place, time, and situation. Cranial nerves II-XII grossly intact. Motor strength 5/5 in all extremities. Sensory grossly intact. Cerebellar exam normal. Normal gait. 14:22 Psych: Behavior/mood is cooperative, anxious, delirious, Affect is animated, Oriented to person, place, time, Patient has no thoughts/intents to harm self or others. Judgement / Insight is normal. Delusions/hallucinations are not present. Vital Signs: 13:54 BP 139 / 89; Pulse 99; Resp 19; Pulse Ox 98% on R/A; Weight 95.25 kg; Height 5 ft. 5 ap3 in. (165.10 cm); 14:52 BP 112 / 87; Pulse 87; Resp 19; Pulse Ox 93% on R/A; ap3 13:54 Body Mass Index 34.95 (95.25 kg, 165.10 cm) ap3 MDM: 13:57 Patient medically screened. ma2 14:22 Differential diagnosis: anxiety, unlikely si or hi, vs delusion. ma2 15:07 Data reviewed: vital signs, nurses notes, EMS record. Counseling: I had a detailed ia2 discussion with the patient and/or guardian regarding: the historical points, exam findings, and any diagnostic results supporting the discharge/admit diagnosis, the presence of at least one elevated blood pressure reading (>120/80) during this emergency department visit, the need for outpatient follow up. Response to treatment: the patient's symptoms have markedly improved after treatment. 08/23 13:57 Order name: Acetaminophen ia2 08/23 13:57 Order name: Basic Metabolic Panel ia2 08/23 13:57 Order name: CBC with Diff; Complete Time: 15:04 ia2 08/23 13:57 Order name: ETOH Level ia2 08/23 13:57 Order name: Hepatic Function ia2 08/23 13:57 Order name: PT-INR; Complete Time: 15:06 ia2 08/23 13:57 Order name: Ptt, Activated; Complete Time: 15:06 ia2 08/23 13:57 Order name: Salicylate ia2 08/23 13:57 Order name: Urine Drug Screen; Complete Time: 15:04 ia2 08/23 13:57 Order name: EKG - Nurse/Tech; Complete Time: 14:28 ia2 08/23 13:57 Order name: IV Saline Lock; Complete Time: 14:28 ia2 08/23 14:27 Order name: Urine Dipstick-Ancillary; Complete Time: 15:04 EDOH 08/23 13:57 Order name: Labs collected and sent; Complete Time: 14:38 ia2 08/23 13:57 Order name: Suicide Screening ([place]); Complete Time: 13:59 ma2 08/23 13:57 Order name: Urine Dipstick-Ancillary (obtain specimen); Complete Time: 14:28 ma2 Administered Medications: 14:28 Drug: Ativan (LORazepam) 1 mg Route: IVP; Site: right forearm; ap3 15:14 Follow up: Response: No adverse reaction; Anxiety decreased ap3 Disposition Summary: 08/23/21 15:07 Discharge Ordered Location: Home ma2 Condition: Stable ma2 Diagnosis - Delusional disorders ma2 Followup: ma2 - With: Private Physician - When: Tomorrow - Reason: Continuance of care Discharge Instructions: - Discharge Summary Sheet ma2 - Psychosis ma2 Forms: - Medication Reconciliation Form ma2 - Thank You Letter ma2 - Antibiotic Education ma2 - Prescription Opioid Use ma2 Signatures: Dispatcher [employer] EDMS James Eric MD MD ma2 Shawna Lim RN RN ap3 Corrections: (The following items were deleted from the chart) 13:57 13:57 Urine Test ordered. ma2 ma2
[2021-08-23 15:12] LABS: ALT/SGPT 26 U/L (12-78); AST/SGOT 22 U/L (15-37); Albumin 3.7 g/dL (3.4-5.0); Alkaline Phosphatase 82 U/L (45-117); BUN Blood Urea Nitrogen 12 mg/dL (7-18); Bicarbonate 24 mmol/L (21-32); Bilirubin Direct 0.2 mg/dL (0-0.2); Bilirubin Total 0.5 mg/dL (0.2-1.0); Glucose Level 109 mg/dL (74-106); Potassium 3.1 mmol/L (3.5-5.1); Protein, Total 7.2 g/dL (6.4-8.2); Sodium Level 143 mmol/L (136-145)
[2021-08-23 16:29] VITALS: BP 112/87; O2SAT 93
[2021-08-23] MEDS ORDERED: ONDANSETRON 4 MG (ODT) TAB ONE (16:33)
== END 2021-08-23 15:43 | disposition home or self-care (01) ==
LOC: ER 13:47
DX: F22 Delusional disorders (principal); F31.9 Bipolar disorder, unspecified; F17.210 Nicotine dependence, cigarettes, uncomplicated; Z88.5 Allergy status to narcotic agent; Z88.8 Allergy status to other drugs, medicaments and biological substances; Z98.82 Breast implant status
CPT/HCPCS: 36415; 80048; 80076; 80307; 80320; 80329; 81003; 85025; 85610; 85730; 96374; 99284

== ENCOUNTER 2021-08-25 22:11 | Emergency (ER) | payer OTHER ==
[2021-08-25 22:54] LABS: Urine Blood Negative (Negative); Urine Glucose Negative (Negative); Urine Protein Negative (Negative); Urine Specific Gravity 1.015 (1.005-1.030); Urine pH 7.5 (5.0-7.0)
[2021-08-26 00:01] LABS: ALT/SGPT 24 U/L (12-78); AST/SGOT 18 U/L (15-37); Albumin 3.2 g/dL (3.4-5.0); Alkaline Phosphatase 71 U/L (45-117); BUN Blood Urea Nitrogen 8 mg/dL (7-18); Bicarbonate 26 mmol/L (21-32); Bilirubin Direct 0.1 mg/dL (0-0.2); Bilirubin Total 0.2 mg/dL (0.2-1.0); Glucose Level 95 mg/dL (74-106); Lipase 198 U/L (73-393); Potassium 3.1 mmol/L (3.5-5.1); Protein, Total 6.7 g/dL (6.4-8.2); Sodium Level 143 mmol/L (136-145)
--- NOTE | 2021-08-26 00:35 | ER ---
Nurse's Notes [facility] Name: Tiffany Quinn Age: 51 yrs Sex: Female : 1970 Arrival Date: 08/25/2021 Time: 22:13 Bed 6 Private MD: Diagnosis: Delusional disorders Presentation: 08/25 22:19 Chief complaint: Patient states: Pt states nausea and feels like she going to "pass df1 out" when changing positions. Pt seen in ER 2 days prior for same. Coronavirus screen: Vaccine status: Patient reports receiving the 2nd dose of the covid vaccine. Client denies travel out of the [place] in the last 14 days. At this time, the client does not indicate any symptoms associated with coronavirus-19. Ebola Screen: Patient negative for fever greater than or equal to 101.5 degrees Fahrenheit, and additional compatible Ebola Virus Disease symptoms Patient denies exposure to infectious person. Patient denies travel to an Ebola-affected area in the 21 days before illness onset. Initial Sepsis Screen: Does the patient meet any 2 criteria? No. Patient's initial sepsis screen is negative. Does the patient have a suspected source of infection? No. Patient's initial sepsis screen is negative. Risk Assessment: Do you want to hurt yourself or someone else? Patient reports no desire to harm self or others. Onset of symptoms was August 25, 2021. 22:19 Method Of Arrival: EMS: [facility] df1 22:19 Acuity: MANUEL 3 df1 Historical: - Allergies: 22:22 Haldol; df1 22:22 Pepcid; df1 22:22 Toradol; df1 - Home Meds: 22:22 lithium carbonate 300 mg Oral cap 1 cap 3 times per day [Active]; df1 - PMHx: 22:22 Anxiety; Bipolar disorder; df1 - PSHx: 22:22 breast augmentation; Cholecystectomy; hernia repair; df1 - Immunization history:: Adult Immunizations not up to date. - Social history:: Smoking status: Patient denies any tobacco usage or history of. Patient/guardian denies using alcohol, street drugs, Patient/guardian denies using The patient lives with family. - Family history:: not pertinent. Screenin:45 Abuse screen: Denies threats or abuse. Denies injuries from another. Nutritional bs2 screening: No deficits noted. Tuberculosis screening: No symptoms or risk factors identified. Fall Risk None identified. Assessment: 23:45 General: Appears in no apparent distress. uncomfortable, obese, well groomed, well bs2 developed, well nourished, Behavior is anxious. Pain: Denies pain. Neuro: No deficits noted. Cardiovascular: No deficits noted. Respiratory: No deficits noted. GI: Reports nausea, pt was just seen in ER in past few days, got a script of Zofran, pt states it does not work and she wants Phenergan. : No deficits noted. EENT: No deficits noted. Derm: No deficits noted. Musculoskeletal: No deficits noted. Vital Signs: 22:19 BP 109 / 66; Pulse 86; Resp 18; Temp 98.7; Pulse Ox 98% on R/A; Weight 81.65 kg; Height df1 5 ft. 2 in. (157.48 cm); Pain 0/10; 22:19 Body Mass Index 32.92 (81.65 kg, 157.48 cm) df1 ED Course: 22:13 Patient arrived in ED. mw2 22:13 James Eric MD is Attending Physician. ma2 22:19 Tiffanie Weber is Primary Nurse. df1 22:22 Triage completed. df1 22:48 CT Head Brain wo Cont In Process Unspecified. EDMS 23:35 Basic Metabolic Panel Sent. bs2 23:35 CBC with Diff Sent. bs2 23:35 Hepatic Function Sent. bs2 23:35 Lipase Sent. bs2 23:44 Lipase Sent. bs2 23:44 Hepatic Function Sent. bs2 23:44 Arm band placed on. bs2 23:45 CBC with Diff Sent. bs2 23:45 Basic Metabolic Panel Sent. bs2 23:45 No provider procedures requiring assistance completed. bs2 23:45 Patient has correct armband on for positive identification. Placed in gown. Bed in low bs2 position. Call light in reach. Side rails up X 1. 08/26 01:45 IV discontinued. bs2 Administered Medications: 08/25 23:44 Drug: Phenergan (promethazine) 25 mg Route: IM; Site: right gluteus; bs2 Outcome: 08/26 00:35 Discharge ordered by . ma2 01:45 Discharged to home ambulatory. bs2 01:45 Condition: improved 01:45 Discharge instructions given to patient, Instructed on discharge instructions, follow up and referral plans. medication usage, Demonstrated understanding of instructions, follow-up care, medications, Prescriptions given X 1. 01:46 Patient left the ED. bs2 Signatures: Dispatcher [employer] EDMS James Eric MD MD ma2 Mitch Quesada mw2 Carolee Andre RN RN bs2 Tiffanie Weber df1
--- NOTE | 2021-08-26 00:35 | EDPHYS ---
Physician Documentation [facility] Name: Tiffany Quinn Age: 51 yrs Sex: Female : 1970 Arrival Date: 08/25/2021 Time: 22:13 Bed 6 Private MD: ED Physician James Eric HPI: 08/25 22:47 This 51 yrs old Female presents to ER via EMS with complaints of delusions. ma2 22:47 Onset: The symptoms/episode began/occurred gradually, 6 week(s) ago. Associated signs ma2 and symptoms: Pertinent negatives: ataxia, combativeness, diaphoresis, dizziness, headache. Current symptoms: In the emergency department the patient's symptoms are unchanged from the initial presentation. The patient has experienced similar episodes in the past. Historical: - Allergies: 22:22 Haldol; df1 22:22 Pepcid; df1 22:22 Toradol; df1 - Home Meds: 22:22 lithium carbonate 300 mg Oral cap 1 cap 3 times per day [Active]; df1 - PMHx: 22:22 Anxiety; Bipolar disorder; df1 - PSHx: 22:22 breast augmentation; Cholecystectomy; hernia repair; df1 - Immunization history:: Adult Immunizations not up to date. - Social history:: Smoking status: Patient denies any tobacco usage or history of. Patient/guardian denies using alcohol, street drugs, Patient/guardian denies using The patient lives with family. - Family history:: not pertinent. ROS: 22:47 Constitutional: Negative for fever, chills, and weight loss. ma2 22:47 All other systems are negative. Exam: 22:47 Constitutional: This is a well developed, well nourished patient who is awake, alert, ma2 and in no acute distress. Eyes: Pupils equal round and reactive to light, extra-ocular motions intact. Lids and lashes normal. Conjunctiva and sclera are non-icteric and not injected. Cornea within normal limits. Periorbital areas with no swelling, redness, or edema. ENT: Nares patent. No nasal discharge, no septal abnormalities noted. Tympanic membranes are normal and external auditory canals are clear. Oropharynx with no redness, swelling, or masses, exudates, or evidence of obstruction, uvula midline. Mucous membranes moist. Neck: Trachea midline, no thyromegaly or masses palpated, and no cervical lymphadenopathy. Supple, full range of motion without nuchal rigidity, or vertebral point tenderness. No Meningismus. Chest/axilla: Normal chest wall appearance and motion. Nontender with no deformity. No lesions are appreciated. Cardiovascular: Regular rate and rhythm with a normal S1 and S2. No gallops, murmurs, or rubs. Normal PMI, no JVD. No pulse deficits. Respiratory: Lungs have equal breath sounds bilaterally, clear to auscultation and percussion. No rales, rhonchi or wheezes noted. No increased work of breathing, no retractions or nasal flaring. Abdomen/GI: Soft, non-tender, with normal bowel sounds. No distension or tympany. No guarding or rebound. No evidence of tenderness throughout. Skin: Warm, dry with normal turgor. Normal color with no rashes, no lesions, and no evidence of cellulitis. MS/ Extremity: Pulses equal, no cyanosis. Neurovascular intact. Full, normal range of motion. Neuro: Awake and alert, GCS 15, oriented to person, place, time, and situation. Cranial nerves II-XII grossly intact. Motor strength 5/5 in all extremities. Sensory grossly intact. Cerebellar exam normal. Normal gait. 22:47 Psych: Behavior/mood is anxious, Affect is flat, Oriented to person, place, time, Patient has no thoughts/intents to harm self or others. Judgement / Insight is impaired. Delusions/hallucinations are present and described as delusions. Vital Signs: 22:19 BP 109 / 66; Pulse 86; Resp 18; Temp 98.7; Pulse Ox 98% on R/A; Weight 81.65 kg; Height df1 5 ft. 2 in. (157.48 cm); Pain 0/10; 22:19 Body Mass Index 32.92 (81.65 kg, 157.48 cm) df1 MDM: 22:13 Patient medically screened. ma2 22:47 Differential Diagnosis: electrolyte abnormality, hypoglycemia, intracranial bleed, ma2 volume depletion. 08/26 00:35 Data reviewed: vital signs, nurses notes. Counseling: I had a detailed discussion with ma2 the patient and/or guardian regarding: the historical points, exam findings, and any diagnostic results supporting the discharge/admit diagnosis, the presence of at least one elevated blood pressure reading (>120/80) during this emergency department visit, the need for outpatient follow up. Response to treatment: the patient's symptoms have markedly improved after treatment. 08/25 22:16 Order name: Basic Metabolic Panel; Complete Time: 00:18 ma2 08/25 22:16 Order name: CBC with Diff ma2 08/25 22:16 Order name: Hepatic Function; Complete Time: 00:18 ma2 08/25 22:16 Order name: Lipase; Complete Time: 00:18 ma2 08/25 22:16 Order name: CT Head Brain wo Cont ma2 08/25 22:54 Order name: Urine Dipstick-Ancillary; Complete Time: 23:33 EDMS 08/25 22:16 Order name: Labs collected and sent; Complete Time: 23:35 ma2 08/25 22:16 Order name: Urine Dipstick-Ancillary (obtain specimen); Complete Time: 23:44 ma2 Administered Medications: 08/25 23:44 Drug: Phenergan (promethazine) 25 mg Route: IM; Site: right gluteus; bs2 Disposition Summary: 08/26/21 00:35 Discharge Ordered Location: Home ma2 Condition: Stable ma2 Diagnosis - Delusional disorders ma2 Followup: ma2 - With: Private Physician - When: Tomorrow - Reason: Recheck today's complaints Discharge Instructions: - Discharge Summary Sheet ma2 - Illegal Drug Use Information, Teen ma2 Forms: - Medication Reconciliation Form ma2 - Thank You Letter ma2 - Antibiotic Education ma2 - Prescription Opioid Use ma2 Prescriptions: - Bactrim DS 800-160 mg Oral Tablet - take 1 tablet by ORAL route every 12 hours for 3 days; 6 tablet; Refills: 0, ma2 Product Selection Permitted Signatures: Dispatcher [employer] EDMS James Eric MD MD ma2 Carolee Andre RN RN bs2 Tiffanie Weber df1
[2021-08-26 00:39] LABS: Absolute Lymphocytes (CBC) 2.7 K/uL (0.7-4.9); Basophils % 1.4 % (0-1.3); Hematocrit 38.8 % (36.0-45.0); Lymphocytes % 30.9 % (15.3-44.8); MPV 8.4 fL (7.6-11.3); RBC Red Blood Cell Count 4.57 M/uL (3.86-4.86)
[2021-08-26] MEDS ORDERED: PROMETHAZINE INJ 25 MG/ML AMP ONE (00:41)
[2021-08-26 01:50] VITALS: BP 109/66; TEMP 98.7; O2SAT 98
--- NOTE | 2021-08-26 11:10 | RAD REPORT ---
EXAM DESCRIPTION: CT - Head Brain Wo Cont - 08/26/2021 2:50 am CLINICAL HISTORY: CONFUSED COMPARISON: 10/16/2019 TECHNIQUE: Axial unenhanced CT imaging of the brain. Reformatted coronal and sagittal images obtaine d. This examination was performed according to our departmental dose optimization program, which include s automated exposure control, adjustment of the mA and/or kV according to patient size and/or use of iterative reconstruction technique. FINDINGS: Ventricles are normal in size and contour. Extra-axial fluid spaces are normal. Gonzalez-white matter differentiation is maintained. No edema, hemorrhage, mass or midline shift. No evidence of ac tolowa dee-ni' infarction or hyperdense vessel. Normal cerebellum and vermis. Fourth ventricle is midline. Sharon l sella contents. Intraorbital contents appear normal. Clear paranasal sinuses. Mastoid air cells are clear. Intact sku ll base and calvarium. Normal scalp soft tissues. IMPRESSION: 1. Normal CT brain. Electronically signed by: Concha Swan DO 08/25/2021 11:18 PM CDT Due to temporary technical issues with the PACS/Fluency reporting system, reports are being signed by the in house radiologist without review as a courtesy to ensure prompt reporting. The interpreting r adiologist is fully responsible for the content of the report.
--- OUTSIDE RECORDS SUMMARY | 2021-09-06 07:02 | XMS REPORT | Continuity of Care Document ---
:1970 Author Organization [facility] t Address [address] [place] [address] Care Team Providers Name Role Phone UNKNOWN Primary Care Physician Unavailable Jackson DO Attending Clinician JACKSON Attending Clinician Unavailable Chente Attending Clinician Unavailable Chente Attending Clinician Unavailable AFUWAPE Attending Clinician Unavailable Chente Admitting Clinician Unavailable AFUWAPE Admitting Clinician Unavailable Payers Payer Name Policy Type Policy Number Effective Date Expiration Date S ource Problems Condition Condition Condition Status Onset Resolution Last Treating Co mments Source Name Details Category Date Date Treatment Clinician Date LOW PB Diagnosis Active 2019-01-22 Mem oria 3 01:52:00 l LOW PB 00:00: [place] 00 Active 01/21/2019 [facility] INFECTIOUS Diagnosis Active 2019-02-06 Memoria GASTROENTE 330 08:58:00 l RITIS AND 00:00: [place] COLITIS INFECTIOUS 00 GASTROENTE RITIS AND COLITIS Active 01/21/2019 [facility] Irregular Irregular Disease Active Uni vers menstrual menstrual 8-15 ity of cycle cycle 00:00: [address] Skin Skin Disease Active Univers lesion lesion 8-15 ity of 00:00: [address] Psychiatri Psychiatri Disease Active U nivers c disorder c disorder 8-15 it y of 00:00: [address] Well woman Well woman Disease Active U kavita exam with exam with 8-15 ity of routine routine 00:00: [place] gynecologi gynecologi 00 Me dical nicky exam nicky exam Branch INFECTIOUS Diagnosis Active 2019-02-06 Memoria GASTROENTE 08:58:00 winifred WALTON AND Yonis COLITIS, INFECTIOUS GASTROENTE RITIS AND COLITIS, Active [facility] Allergies, Adverse Reactions, Alerts Allergy Allergy Status Severity Reaction(s) Onset Inactive Treating Comm ents Source Name Type Date Date Clinician NO KNOWN Drug Active Univers ALLERGIE Class ity of S [facility] Phenerga Phenerga Active Memori a n n l Yonis Social History Social Habit Start Date Stop Date Quantity Comments Source [facility] of [facility] Tobacco Comment 2-3 cigs a day [facility] Exposure to Not sure [facility] SARS-CoV-2 [facility] (event) [place] Tobacco use and 2016-06-08 2016-06-08 Never used [facility] y of exposure 00:00:00 00:00:00 [facility] Alcohol intake 2016-06-08 2016-06-08 Current University 00:00:00 00:00:00 non-drinker of [facility] alcohol (finding) Branch Smoking Status Start Date Stop Date Source Social History 2019-01-22 05:00:12 [facility] Current some day smoker 2016-06-08 00:00:00 [facility] Medications Ordered Filled Start Stop Current Ordering Indication Dosage Frequency Signature Comments Components Source Medication Medication Date Date Medication? Clinician (SIG) Name Name ondansetron 2019-10 2020- No 4mg 4 mg, [facility] ers (ZOFRAN-ODT 2-05 05- Oral, ity of ) 15:15: 14:16 ONCE, 1 [place] disintegrat 00 :00 dose, Mon Med ical ing tablet 09/30/20 at [facility] 4 mg 0915, Routine ondansetron 2019-10 2020- No 4mg 4 mg, [facility] ers (ZOFRAN-ODT 2-05 05- Oral, ity of ) 14:30: 13:32 ONCE, 1 [place] disintegrat 00 :00 dose, Mon Med ical ing tablet 09/30/20 at [facility] 4 mg 0830, Routine ondansetron 2019-10 Yes [id number] 4mg Take 1 Univers 4 mg 2-07 tablet by ity of disintegrat 00:00: mouth [place] ing tablet 00 every 8 Medica l (eight) Branch hours as needed for Nausea and Vomiting (N/V). ciprofloxac 2019- Yes 500 mg = 1 Memoria in 500 mg 4-04 tab, PO, l oral tablet 17:35: [id number], X Yonis 00 4 day, # 8 tab, 0 Refill(s) Ondansetron 2018- Yes 4 mg = 1 Me moria 4 MG Oral 4-04 tab, PO, l Tablet 17:35: Q6H, PRN [place] [Zofran] 00 Nausea/Vom iting, # 20 tab, 0 Refill(s) tramadol 2019-0 Yes 50 mg = 1 Estrada doni [...] 4-04 tab, PO, l oral tablet 17:35: [id number], X [place] 00 4 day, # 8 tab, 0 Refill(s) Ondansetron Yes 4 mg = 1 Me moria 4 MG Oral 4-04 tab, PO, l Tablet 17:35: Q6H, PRN Yonis [Zofran] 00 Nausea/Vom iting, # 20 tab, 0 Refill(s) tramadol 20190 Yes 50 mg = 1 Estrada doni hydrochlori 4-04 tab, PO, l de 50 MG 17:35: Q6H, PRN Deloris nn Oral Tablet 00 Pain Score 1-3, X 5 day, # 20 tab, 0 Refill(s) Metronidazo 20190 Yes 500 mg = 1 Memoria le 500 MG 4-04 tab, PO, l Oral Tablet 17:35: [id number], X H ermann 00 4 day, # 12 tab, 0 Refill(s) Potassium 2019 No Notes: Memori a Chloride -03 (Same as: l 13:26: K-Dur 20) Yonis 00 "Do Not Crush" Give with food and full glass of water For patients unable to swallow tablet, dissolve in one half glass of water. Allow about 2 minutes for the tablets to disintegra te. Stir before giving to prepare slurry and administer . Please exclude Patient s with feeding tube less than 14 Azerbaijani (Dobhoff, J-tube etc) and pediatric and patients. Potassium No Notes: Memori a Chloride 4-03 (Same as: l 13:26: K-Dur 20) "Do Not Crush" Give with food and full glass of water For patients unable to swallow tablet, dissolve in one half glass of water. Allow about 2 minutes for the tablets to disintegra te. Stir before giving to prepare slurry and administer . Please exclude Patient s with feeding tube less than 14 Azerbaijani (Dobhoff, J-tube etc) and pediatric and patients. [...] CDT lithium No Notes: Do Memor ia 4-02 not crush l 02:00: or chew. (Same as: Eskalith-C R) lithium No Notes: Do Memor ia 4-02 not crush l 02:00: or chew. (Same [...] Memoria 4-01 Route: PO, l 22:00: QPM, [place] Dosing Weight 75, kg, Start date: 01/23/19 [...] date: 02/22/19 14:17:00 CDT, 1.84, m2 normal 2018- No 1,000 mL, Memori a saline 0.9% [...] Memoria 4-01 (Same as: l 15:00: Flagyl) Take with food/ avoid alcohol Cipro No Notes: May Memori a 4-01 interfere l 15:00: w/enteral feedings - Take 1 hr before or 2 hrs after antacids, dairy pdt & minerals. On empty stomach. Flagyl No Notes: Memoria 4-01 (Same as: l 15:00: Flagyl) Yonis 00 Take with food/ avoid alcohol Cipro No Notes: May Memori a 01-23 interfere l 15:00: w/enteral [place] 00 feedings - Take 1 hr before or 2 hrs after antacids, dairy pdt & minerals. On empty stomach. tramadol No 50 mg = 1 Estrada doni hydrochlori -01 tab, PO, l de 50 MG 14:20: Q6H, PRN Deloris nn Oral Tablet 00 Pain Score 1-3, 0 Refill(s) tramadol No 50 mg = 1 Estrada doni hydrochlori -01 tab, PO, l de 50 MG 14:20: Q6H, PRN Del[place]is nn Oral Tablet 00 Pain Score 1-3, 0 Refill(s) potassium Yes 40 mEq, Memor ia chloride 20 4-01 PO, ONCE, l mEq oral 14:20: 0 [place] tablet, 00 Refill(s) extended release Metronidazo No 500 mg, Mem oria le 500 MG 4-01 PO, l Oral Tablet 14:20: [id number], 0 H ermann [Flagyl] 00 Refill(s) Ciprofloxac No 500 mg, Mem oria in 500 MG 4-01 PO, l Oral Tablet 14:20: [id number], 0 Yonis [Cipro] 00 Refill(s) potassium Yes 40 mEq, Memor ia chloride 20 4-01 PO, ONCE, l mEq oral 14:20: 0 [place] tablet, 00 Refill(s) extended release Metronidazo No 500 mg, Mem oria le 500 MG 4-01 PO, l Oral Tablet 14:20: ABXQ8H, 0 H ermann [Flagyl] 00 Refill(s) Ciprofloxac No 500 mg, Mem oria in 500 MG 4-01 PO, l Oral Tablet 14:20: [id number], 0 Yonis [Cipro] 00 Refill(s) Potassium No Notes: Memori a Chloride 01-23 (Same as: l 14:17: K-Dur 20) [place] "Do Not Crush" Give with food and full glass of water For patients unable to swallow tablet, dissolve in one half glass of water. Allow about 2 minutes for the tablets to disintegra te. Stir before giving to prepare slurry and administer . Please exclude Patient s with feeding tube less than 14 Azerbaijani (Dobhoff, J-tube etc) and pediatric and patients. Potassium 2018- No Notes: Memori a Chloride 4-01 (Same as: l 14:17: K-Dur 20) "Do Not Crush" Give with food and full glass of water For patients unable to swallow tablet, dissolve in one half glass of water. Allow about 2 minutes for the tablets to disintegra te. Stir before giving to prepare slurry and administer . Please exclude Patient s with feeding tube less than 14 Azerbaijani (Dobhoff, J-tube etc) and pediatric and patients. Pepcid No Notes: Memoria 3-31 (Same as: l 22:00: Pepcid) Yonis 00 Pepcid No Notes: Memoria 3-31 (Same as: [...] 21:08: BID, 0 Yonis [Risperdal] 00 Refill(s) Strattera 2019-0 Yes 0.5 mg/kg, Me moria 3-31 PO, QAM, 0 l 21:08: Refill(s) Yonis lithium 450 0 Yes 450 mg = [...] oria 3-31 to exceed l 15:03: 400mg/day. Yonis (Same As: Ultram) Tramadol No Notes: Not Mem oria 3-31 to exceed l 15:03: 400mg/day. [place] (Same As: Ultram) normal No 1,000 mL, [...] 3-31 (Same as: l 09:47: Zofran) Yonis MEDICATION WASTE Product Size: 4 mg Product Wasted: ___ mg Glucagon 2019-0 No 1 mg, Memoria 3-31 Route: IM, l 09:47: Drug form: [place] 00 PDR/INJ, PRN, Dosing Weight 75.994, kg, PRN Blood Glucose Results, Start date: 01/22/19 4:47:00 CDT, Duration: 30 day, Stop date: 02/21/19 4:46:00 CDT Dextrose 2019-0 No 12.5 gm, Memor ia 50% Syringe 3-31 25 mL, l 09:47: Route: [place] 00 IVP, Drug Form: INJ, Dosing Weight 75.994, kg, PRN, PRN Blood Glucose Results, Start date: 01/22/19 4:47:00 CDT, Duration: 30 day, Stop date: 02/21/19 4:46:00 CDT Ondansetron 2019-0 No Notes: Estrada doni 3-31 (Same as: l 09:47: Zofran) Yonis MEDICATION WASTE Product Size: 4 mg Product Wasted: ___ mg Glucagon 2019-0 No 1 mg, Memoria 3-31 Route: IM, l 09:47: Drug form: Yonis [...] Memoria 3-31 (Same as: l 08:56: Zofran) [place] 00 MEDICATION WASTE Product Size: 4 mg Product Wasted: ___ mg Zofran No Notes: Memoria 3-31 (Same as: l 08:56: Zofran) [place] 00 MEDICATION WASTE Product Size: 4 mg [...] moria IV 3-31 1,000 l 08:52: ml/hr, [place] 00 Infuse Over: 1 hr, Route: IV, [...] moria IV 3-31 1,000 l 05:44: ml/hr, [place] 00 Infuse Over: 1 hr, Route: IV, 1,000, Drug form: INJ, ONCE, Priority: STAT, Dosing Weight 75.994 kg, Start date: 01/22/19 0:44:00 CDT, Stop date: 01/22/19 0:44:00 CDT Zofran No Notes: Memoria 3-31 (Same as: l 04:52: Zofran) MEDICATION WASTE Product Size: 4 mg Product Wasted: ___ mg Saline No Notes: Memoria Flush 0.9% 3-31 Same as: l 04:52: BD [place] 00 Posiflush Sterile Zofran No Notes: Memoria 3-31 (Same as: l 04:52: Zofran) MEDICATION WASTE Product Size: 4 mg Product Wasted: ___ mg Saline No Notes: Memoria Flush 0.9% 3-31 Same as: l 04:52: BD Yonis 00 Posiflush Sterile NS (Bolus) No 1,000 [...] 23:51:00 CDT, Stop date: 01/21/19 23:51:00 CDT ondansetron Yes 4mg Take 1 Univ ers (ZOFRAN, 1-27 tablet by ity of HYDROCHLORI 00:00: mouth [place] DE,) 4 mg 00 every 8 Medical tablet (eight) Branch hours. ibuprofen Yes 200mg Take 200 Uni vers (ADVIL) 200 8-15 mg by ity of mg tablet 19:02: mouth [place] 27 every 6 Medical (six) Branch hours as needed. CLONAZEPAM Yes Take by Uni vers (KLONOPIN 8-15 mouth. ity of ORAL) 19:02: [place] 27 Medical Branch CITALOPRAM Yes Take by Uni vers HYDROBROMID 8-15 mouth. ity of E 19:02: [place] (CITALOPRAM 27 Medical ORAL) Branch misoprostol Yes 200ug Take 1 Uni vers (CYTOTEC) 8-15 tablet by ity o f 200 mcg 00:00: mouth [place] tablet 00 SEE-INSTRU Medical CTIONS. Branch Take one tab the night before and one tab the morning of procedure butalbital- Yes TK 1 TO 2 U nivers acetaminoph 8-01 T PO Q 8 H it y of en-caff 00:00: PRN. [place] (ESGIC) 00 Medical 50-325-40 Branch mg tablet dextroamphe Yes TK 1 T PO U nivers tamine-amph 7-20 BID. ity of etamine 00:00: [place] (ADDERALL) 00 Medical 20 mg Branch tablet amoxicillin 2014-10 Yes 500mg Take 1 Cap Univers (TRIMOX) 1-16 by mouth 3 ity o f 500 mg 00:00: (three) [place] capsule 00 times Medical daily. Branch traMADOL 2014-10 Yes 50mg Take 1 Tab Uni vers (ULTRAM) 50 1-16 by mouth ity of mg tablet 00:00: every 6 [place] 00 (six) Medical hours as Branch needed for Pain (scale 4-6). naproxen 2015-1 Yes 500mg Take 1 Tab Un parul (NAPROSYN) 1-16 by mouth 2 ity of 500 mg 00:00: (two) [place] tablet 00 times Medical daily with Branch meals. Vital Signs Vital Name Observation Time Observation Value Comments Source Systolic blood 2020-09-30 14:00:00 126 mm[Hg] Univer sity of pressure [facility] Diastolic blood 2020-09-30 14:00:00 84 mm[Hg] Unive rsity of [facility] Heart rate 2020-09-30 14:00:00 79 /min Universi ty of [facility] Oxygen saturation in 2020-09-30 14:00:00 98 /min University of Arterial blood by [facility] Pulse oximetry Branch Body temperature 2020-09-30 13:26:00 37.22 Ruthann [facility] ersity of [facility] Respiratory rate 2020-09-30 13:26:00 16 /min Univ ersity of [facility] Body weight 2020-09-30 13:26:00 72.576 kg Universi ty of [facility] BMI 2020-09-30 13:26:00 28.80 kg/m2 Universi ty of [facility] Systolic blood 2020-09-30 14:00:00 126 mm[Hg] Univer sity of [facility] Diastolic blood 2020-09-30 14:00:00 84 mm[Hg] Unive rsity of [facility] Heart rate 2020-09-30 14:00:00 79 /min Universi ty of [facility] Branch Oxygen saturation in 2020-09-30 14:00:00 98 /min University of Arterial blood by [facility] Pulse oximetry Branch Body temperature 2020-09-30 13:26:00 37.22 Ruthann [facility] ersity of [facility] Branch Respiratory rate 2020-09-30 13:26:00 16 /min Univ ersity [facility] Body weight 2020-09-30 13:26:00 72.576 kg Universi ty of [facility] BMI 2020-09-30 13:26:00 28.80 kg/m2 Universi ty of [facility] Temperature Oral (F) 2019-01-28 01:16:00 98.6 F [facility] [place] Systolic (mm Hg) 2019-01-28 01:16:00 Estrada nadir [place] Diastolic (mm Hg) 2019-01-28 01:16:00 Mem orial [place] Heart Rate 2019-01-28 01:16:00 Memorial Yonis Respitory Rate 2019-01-28 01:16:00 Memori al [place] Systolic (mm Hg) 2019-01-27 20:42:00 Estrada rial [place] Diastolic (mm Hg) 2019-01-27 20:42:00 Mem orial Yonis Heart Rate 2019-01-27 20:42:00 Memorial Yonis Respitory Rate 2019-01-27 20:42:00 Memori al [place] Temperature Oral (F) 2019-01-27 20:42:00 98.5 F [facility] [place] Systolic (mm Hg) 2019-01-27 17:00:00 Estrada rial Yonis Diastolic (mm Hg) 2019-01-27 17:00:00 Mem orial [place] Temperature Oral (F) 2019-01-27 17:00:00 98.5 F [facility] [place] Heart Rate 2019-01-27 17:00:00 Memorial Yon[place] Respitory Rate 2019-01-27 17:00:00 Memori al [place]on[place] Height 2019-01-22 14:35:00 157.48 cm Memorial Yonis BMI Calculated 2019-01-22 14:35:00 Memori al [place] Weight 2019-01-22 14:35:00 [facility] [place] Weight 2019-01-22 04:34:00 [facility] [place] Procedures Procedure Date / Time Performed Performing Clinician Sourc e URINALYSIS 2020-09-30 13:27:00 Chuy Jackson o f [facility] ADC,CLC OR LCC ONLY - 2020-09-30 13:27:00 Chuy Jackson [facility] INFLUENZA A & B DIRECT Medical B ranch ANTIGEN COVID-19 (ID NOW RAPID 2020-09-30 13:27:00 Chuy Jackson [facility] TESTING) Medical Branch Encounters Start End Encounter Admission Attending Care Care Encounter Source Date/Time Date/Time Type Type Clinicians Facility Department ID 2019-01-22 Inpatient E [facility] [id number] [facility] W 04:39:00 2020-09-30 2020-09-30 Emergency DENIA Jackson [id number] 07:22:00 08:18:00 Chuy Jimenez [id number] [place] [id number] [place] [id number] 2020-09-30 2020-09-30 Emergency [facility] [id number] Univers 07:22:00 08:18:00 Chuy Jimenez [id number] i [place] [id number] [facility] [id number] [place] [address] Branch 2020-09-30 2020-09-30 Emergency X [facility] ERT [id number] Univers 07:22:00 07:22:00 CHUY tubbs [facility] 2020-03-04 2020-03-14 Inpatient 3 [facility] PSY [id number] 15:38:00 15:25:00 [facility] 2019-01-22 2019-01-28 Inpatient [facility] [id number] Memoria 04:33:00 04:40:00 Yonis 00 l [facility] 2018-02-21 2018-02-20 Inpatient E [facility] MED [id number] 14:48:00 13:18:00 [facility] Results Test Description Test Time Test Comments Results Result Comments Source ADC,CLC OR LCC ONLY - INFLUENZA A & B DIRECT ANTIGEN 2020-09 14:04:00 Test Item Value Reference Range Interpretation Comme nts Influenza A (test code = 82453-0) Negative Negative Influenza B (test code = 33443-2) Negative Negative Lab Interpretation (test code = 73423-6) Normal [facility] NOW RAPID TESTING)2020-09-30 14:03:00 Test Item Value Reference Range Interpretation Comments SARS-CoV-2 Rapid ID NOW Not Detected Not Detected (test code = 52658-1) PERRY (test code = PERRY) ID NOW COVID-19 Assay is an isothermal nucleic acid amplification test intended for the qualitative detection of nucleic acid from SARS-CoV-2 viral RNA in nasopharyngeal (SHIPPING HAND) specimens. It is used under Emergency Use Authorization (EUA) by FDA. The limit of detection (LOD) of the assay is 125 Genome Equivalents/mL. A positive result is indicative of the presence of SARS-CoV-2 RNA. ?Clinical correlation with patient history and other diagnostic information is necessary to determine patient infection status. A negative (Not Detected) result does not preclude SARS-CoV-2 infection. In patients with clinical symptoms and other tests that are consistent with SARS-CoV-2 infection, negative results should be treated as presumptive negative and a new specimen should be tested with alternative PCR molecular test. Invalid: Please collect a new specimen for repeat patient testing if clinically indicated. Lab Interpretation Normal (test code = 83116-1) [facility]2020-[facility] 13:55:00 Test Item Value Reference Range Interpretation Comments APPEARANCE (test code = Hazy Clear A 6688495612) COLOR (test code = Yellow Yellow 3360602333) PH (test code = 4.8-8.0 0281646345) SP GRAVITY (test code = 1.003-1.030 9059525092) GLU U QUAL (test code = Normal Normal 9324639428) BLOOD (test code = Negative Negative 8454355079) KETONES (test code = 5 mg/dL Negative A 5410598009) PROTEIN (test code = Negative Negative 2887-8) UROBILIN (test code = 2.0 mg/dL Normal A 1829642831) BILIRUBIN (test code = Negative Negative 4800235040) NITRITE (test code = Negative Negative 6861597578) LEUK ROZINA (test code = 25/uL Negative A 3090395563) RBC/HPF (test code = See_Comment [Autom ated message] 9876265421) The system [employer] generated this result transmit ngozi reference range : 0 - 3 HPF. The refe rence range was not u sed to interpret th is result as normal/abnormal . WBC/HPF (test code = See_Comment [Autom ated message] 4587091540) The system [employer] generated this result transmit ngozi reference range : 0 - 5 HPF. The refe rence range was not u sed to interpret th is result as normal/abnormal . BACTERIA (test code = Few Negative A 0853451542) MUCOUS (test code = Slight Negative LPF A 7120171435) SQ EPITH (test code = HPF 7507544759) Lab Interpretation (test Abnormal code = 33743-7) [facility] Xhglkvuftel6467-65-93 16:42:24 Test Item Value Reference Range Interpretation Comments RPR Qual (test code = RPR Qual) Non-Reactive Non-Reactive Reactive Control (test code = Reactive Reactive Control) Weak Reactive Control (test Weak Reactive code = Weak Reactive Control) Non-Reactive Control (test code Non-Reactive = Non-Reactive Control) Lot # (test code = Lot #) [id number] N Expiration Dt (test code = 10-24-2020 N Expiration Dt) Thyroid Stimulating Kbtpwdu8224-38-43 08:35:16 Test Item Value Reference Range Interpretation Comments TSH (test code = TSH) 1.170 mIU/mL 0.270-4.200 Lipid Fxtbh1157-84-11 08:21:19 Test Item Value Reference Range Interpretation Comments Cholesterol Total 254 mg/dL 0-200 H RISK OF HE ART (test code = DISEASEPublishe d by Cholesterol Total) [employer] Cathie lyte Optimal Borderl ine [...] calculation is LDL/HDL Ratio=L DL Calc/HDL Chol HBFSZVUEXEXL8068-80-86 08:24:008.6[facility]orial ZixslpyXWRXNTWWIGMP9301-49-14 08:24:13984Mbfdudta KmmscrdZGWEHDWHJKYT1757-47-75 08:24:0027[facility] Yonis IJFIHLJKPYQX8666-13-39 08:24:12147Qtzxepvm DqmlfavRPVKHVXMNCSL3710-32-36 08:24:003.6[facility]orial NjhhfrjWDLBKSOOUSKW5460-89-13 08:24:000.70[facility] Yonis XBIHMVHEMVAR1861-58-07 08:24:008.4[facility]orial EgibbyaFCQSLFGUNOET9468-75-85 08:24:01517Dresdhro TfldgulCGGPIECLQPUV1221-45-59 08:24:0086[facility] Yonis GUGVXSHCJTNI2216-29-73 08:24:006[facility]orial IgabgybWMKTTOCDTF5456-76-38 08:24:00 11.6Memorial XbyzlwxXZDKLTNQZL6062-33-65 08:24:003.78[facility]ann[facility]MATOLOGY 2019-01-26 08:24:0013.3[facility]orial MwhevxrJZITQTVCJR9121-45-41 08:24:0034.0[facility]orial PvrvnzaSPQPSIQQJN1268-17-38 08:24:006.3[facility] AspldrgLCOSAJHTAZ9347-77-81 08:24:00 Test Item Value Reference Range Interpretation Comments MCH (test code = MCH) 30.7 pg 27.0-31.0 Memorial DxvrevkUUDTBCAWZK7751-40-20 08:24:0090.3[facility]ann[facility]MATOLOGY 2019-01-26 08:24:0034.2[facility]orial KdknqbfNNBZBEFWOE2696-62-54 08:24:60721Vbqsslge MltdeboSMJAGBWAKH5196-03-28 08:24:007.5Memorial CgmapdzMKPCPMSPJTPL6159-88-62 08:24:008.6[facility]orial QdnbfueQYVYNNSWBSXS8713-57-50 08:24:80045Qpiumaco [place] HXLHOAVTUFJD6811-12-79 08:24:0027[facility] PzchhxfELUASPXRBAPW6970-78-97 08:24:00 139[facility]orial WxmfyqjGKLFDTTJJJQN9191-42-14 08:24:003.6[facility] Y[facility] LSICRMAHIEWS0135-49-76 08:24:000.70[facility]orial NfyidscWRKXEUDIXSMU1011-90-29 08:24:008.4[facility]orial UuzejqsNMJQHKCUVNGW4470-60-54 08:24:70169Zbhuceii Yonis MYXEEAZKYKJI1417-72-23 08:24:0086Memorial MvjijbaUZNRVFRYQQGR7678-92-13 08:24:00 6Memorial IquefljIVHWCUKYWI4038-36-49 08:24:0011.6[facility] HermannHEMATOLOGY 2019-01-26 08:24:003.78Memorial VxhwpqqKZSMZKUHII5003-09-32 08:24:0013.3[facility]orial HmsntehNGRUXKTFMQ2216-88-78 08:24:0034.0[facility]orial MdrlttwCTUTCVFMYV5694-44-20 08:24:006.3[facility]orial HnaafdiKWVNDNDVXY4437-89-09 08:24:00 Test Item Value Reference Range Interpretation Comments MCH (test code = MCH) 30.7 pg 27.0-31.0 Memorial ZtxblyfNIMRVMATQQ1487-34-65 08:24:0090.3[facility] HermannHEMATOLOGY 2019-01-26 08:24:0034.2[facility]orial UyfvuybDVBGGJKRXK7825-32-48 08:24:43745Ruszlsoy EjhcvrqRURLDFOUSL9185-96-88 08:24:007.5[facility] HermannCHEM WCXQP5494-80-72 09:14:09700Ymsqvdpo HermannCHEM WXUUP6288-68-08 09:14:008.5[facility] HermannCHEM YZGGK7455-43-89 09:14:0013.3[facility] HermannCHEM WRAZC3032-33-72 09:14:0024 [facility] HermannCHEM EMXWP4600-56-86 09:14:02869Cvngkhtk HermannCHEM PANEL 2019-01-25 09:14:0081[facility] HermannCHEM DQCXP8284-56-34 09:14:002[facility] HermannCHEM HZMIH8618-83-45 09:14:003.3[facility] HermannCHEM IENGG6780-93-36 09:14:000.60[facility] HermannCHEM RPSLZ6533-02-13 09:14:23023Izoluafo HermannCHEM BSZRL5322-33-49 09:14:32062Funkpxir HermannCHEM JOJJI8384-00-77 09:14:008.5 [facility] HermannCHEM MECYZ3833-70-68 09:14:0013.3[facility] HermannCHEM PANEL 2019-01-25 09:14:0024[facility] HermannCHEM ATQTW0626-17-16 09:14:85104Vggscaew HermannCHEM NXLWV3934-70-12 09:14:0081[facility] HermannCHEM LMIZO5624-91-60 09:14:002[facility] HermannCHEM NMKPR0924-48-37 09:14:003.3[facility] HermannCHEM WBJVC3400-71-75 09:14:000.60[facility] HermannCHEM UGDEN3472-51-38 09:14:84290 [facility] HermannMOLECULAR GGVTCRSCOZ0278-23-66 16:22:00Negative (01/23/19 11:22 AM)[facility] HermannMOLECULAR CJMTUVQTCU4575-42-16 16:22:00Negative (01/23/19 11:22 AM)[facility] HermannCHEM CNFNV9581-68-82 15:42:002.76[facility] HermannCHEM PANEL 2019-01-23 15:42:002.76[facility] HermannCHEM WFZAL9579-50-72 12:32:000.9[facility] HermannCHEM NIPSA6029-53-39 12:32:000.9[facility] HermannCHEM TFQIU2880-01-88 10:50:002.0[facility] HermannCHEM BXLQY0671-47-31 10:50:37538Fwkumqds HermannCHEM UGZHL6340-93-86 10:50:0023[facility] HermannCHEM EEDST5514-36-38 10:50:26068 [facility] HermannCHEM VLOJF7952-37-70 10:50:003.1[facility]annCHEM PANEL 2019-01-23 10:50:13117Dphjsixx HermannCHEM JUVIN2108-23-13 10:50:005[facility]annCHEM BRLTD5513-71-96 10:50:000.50[facility] HermannCHEM OJFVA3802-40-58 10:50:007.8[facility] HermannCHEM IZAHH5167-82-04 10:50:0083[facility] HermannCHEM KQSZN5046-95-51 10:50:0010.1[facility] ZpfccfgWFRODSELHO0464-40-65 10:50:000.2 [facility] DrskgzuGACCCHGFGY2847-79-36 10:50:000.8[facility] HermannHEMATOLOGY 2019-01-23 10:50:005.5[facility] JbendgyTXFBHLIMQZ2357-63-01 10:50:002.2[facility] NbrgctiHNZVHJPUIU6226-50-22 10:50:000.1[facility] AmfojsqCTHCLTPXMO8336-51-34 10:50:0063.6[facility] GxettnvACEOWPESJB8311-21-67 10:50:008.9[facility] UTYOEHTCPL7615-05-35 10:50:002.3[facility] RewihypSOVOCNVIGT4621-76-72 10:50:00 Normal (01/23/19 5:50 AM)[facility] VnhmpzjIMUULVUNLF2678-55-23 10:50:00Normal (01/23/19 5:50 AM)[facility] RafkbknPOQNBZANNH4676-26-45 10:50:0025.1[facility] RrpigphQPWEVQUBUG3487-63-75 10:50:0013.1[facility] XteczzzNMKELIJBDD8649-26-43 10:50:34265Qvlnffwi IvqvnutHARPBRZRML8651-22-55 10:50:007.7[facility] VMYZANBXBT7522-86-77 10:50:008.6[facility] JtlbzirUFBNUONPYK2446-45-90 10:50:00 10.0[facility] NrsbngiMWHYCGWOAM1055-56-44 10:50:0034.6[facility] HermannHEMATOLOGY 2019-01-23 10:50:0028.7[facility] BzcxmlsVYWGUXXDAU4295-14-31 10:50:0087.8[facility] HcnqwloINUIGUIXKO5102-63-97 10:50:00 Test Item Value Reference Range Interpretation Comments MCH (test code = MCH) 30.4 pg 27.0-31.0 [facility] VbewuzpDSGOGJNZYQ9494-46-00 10:50:003.27[facility] HermannCHEM PANEL 2019-01-23 10:50:002.0[facility] HermannCHEM MBCRI2736-15-16 10:50:67880Nhoqylvt HermannCHEM SWFAI5825-73-37 10:50:0023[facility] HermannCHEM ZQEHU6243-69-03 10:50:94331Fmwhszul HermannCHEM SCZAE2871-22-26 10:50:003.1[facility]annCHEM HVJBS0508-71-10 10:50:14901Ilsbutaj HermannCHEM BCWJW6541-62-22 10:50:005 [facility]annCHEM RKDOR3384-70-18 10:50:000.50[facility] HermannCHEM PANEL 2019-01-23 10:50:007.8[facility] HermannCHEM LNIDQ9259-05-31 10:50:0083[facility] HermannCHEM RNIWZ5707-71-04 10:50:0010.1[facility] YjbppkhEPZJEABZQR6682-58-81 10:50:000.2[facility] IxbiubdMHVFOUNDYG8538-16-70 10:50:000.8[facility] CJCJDVDJHK2532-25-40 10:50:005.5[facility] SybzycoXIWHAZPJEV8718-95-67 10:50:002.2 [facility] UuxwbyiICXMWFXOFD7615-92-53 10:50:000.1[facility] HermannHEMATOLOGY 2019-01-23 10:50:0063.6[facility] NwxstteZHCUFJXQGZ7666-28-95 10:50:008.9[facility] OggzohzHNJQMJSKWY3605-04-67 10:50:002.3[facility] BvzosijNSWWPSWGDL2429-50-45 10:50:00Normal (01/23/19 5:50 AM)[facility] MmczzhcFEOOSGXSWY0597-91-05 10:50:00 Normal (01/23/19 5:50 AM)[facility] UuflrkfEXYPQMBXPV8580-59-74 10:50:0025.1[facility] TaebihaFRAFZEMXFF6919-49-91 10:50:0013.1[facility] WmzhytrDQREQSVFCD2422-94-57 10:50:77574Gvvzwimc ZsebdlaOLMYSJVKNS1799-23-61 10:50:007.7[facility] GAICCFXOEY8020-52-14 10:50:008.6[facility] OvqmeasNMMTRIZUZD0894-83-28 10:50:00 10.0[facility] ZslrptaVMAEHQAEZG4409-08-09 10:50:0034.6[facility] HermannHEMATOLOGY 2019-01-23 10:50:0028.7[facility] YzpwxcsYRBSXDZUUH4773-09-93 10:50:0087.8[facility] ZbwzwloRNVCKBHEVD5856-30-07 10:50:00 Test Item Value Reference Range Interpretation Comments MCH (test code = MCH) 30.4 pg 27.0-31.0 [facility] UdzodmiIYRVCKLUMN2592-13-77 10:50:003.27[facility] HermannCHEM PANEL 2019-01-22 11:32:002.4[facility] HermannCHEM TXRZX5853-17-65 11:32:002.4[facility] HermannCHEM OCJZM2285-78-63 09:04:003.0[facility]annCHEM YAZHF4429-33-75 09:04:003.0[facility]annUR[facility] AND SQUCI1827-00-92 07:14:00<1[facility] AND KLKIM6433-96-94 07:14:0025[facility] STOOL 2019-01-22 07:14:002[facility] GAEBB3002-30-29 07:14:00Light Yellow *NA*(01/22/19 2:14 AM)[facility] NWRWF1506-86-48 07:14:00 Clear (01/22/19 2:14 AM)[facility] ZAIDA7750-66-86 07:14:00 Test Item Value Reference Range Interpretation Comments UA Spec Grav (test code = UA Spec 1.014 1 Grav) [facility] JIDWB9365-94-48 07:14:00 Test Item Value Reference Range Interpretation Comments UA pH (test code = UA pH) 6.0 1 5.0-8.0 [facility] OMYIZ8451-67-65 07:14:00Negative (01/22/19 2:14 AM) [facility] JFCEP5475-63-56 07:14:00Negative *NA*(01/22/19 2:14 AM) [facility] DZILW1799-99-34 07:14:00Negative *NA*(01/22/19 2:14 AM) [facility] ACWHS2761-40-96 07:14:00Negative *NA*(01/22/19 2:14 AM) [facility] PXIAE0640-80-07 07:14:00Negative (01/22/19 2:14 AM) [facility] RBKFC0253-44-04 07:14:00Negative (01/22/19 2:14 AM) [facility] GTGOL2779-97-08 07:14:00Negative (01/22/19 2:14 AM) [facility] TBWKG6092-60-47 07:14:00<1[facility] FAZVV7758-26-70 07:14:0025[facility] FBXOC9392-09-09 07:14:002 [facility] QTICS6782-42-12 07:14:00Light Yellow *NA*(01/22/19 2:14 AM)[facility] YFJMC0279-37-89 07:14:00Clear (01/22/19 2:14 AM) [facility] QKLPE8992-16-86 07:14:00 Test Item Value Reference Range Interpretation Comments UA Spec Grav (test code = UA Spec 1.014 1 Grav) [facility] SNRAV6328-69-82 07:14:00 Test Item Value Reference Range Interpretation Comments UA pH (test code = UA pH) 6.0 1 5.0-8.0 [facility] DTLCF2610-67-09 07:14:00Negative (01/22/19 2:14 AM) [facility] UIYUB8391-86-90 07:14:00Negative *NA*(01/22/19 2:14 AM) [facility] ZOTMA4904-90-57 07:14:00Negative *NA*(01/22/19 2:14 AM) [facility] WZWAV4017-63-14 07:14:00Negative *NA*(01/22/19 2:14 AM) [facility] EBITU8168-54-65 07:14:00Negative (01/22/19 2:14 AM) [facility] NDWCC1147-72-78 07:14:00Negative (01/22/19 2:14 AM) [facility] DOKZO6879-43-19 07:14:00Negative (01/22/19 2:14 AM) [facility] FcpgkdyNGNHW3573-52-83 05:16:000.90[facility] GiepnvsDAGRU4731-66-46 05:16:000.90[facility]annBLOOD BANK TCHMUXG4615-52-92 05:01:00Negative (01/22/19 12:01 AM)[facility] HermannCARDIAC PDFGGBP6223-33-01 05:01:00<0.02 [facility]annCARDIAC SCDTBAA4950-92-42 05:01:0049[facility] HermannCHEM PANEL 2019-01-22 05:01:000.6[facility] HermannCHEM AFPIB0978-21-33 05:01:11112Rjdowopu HermannCHEM REIGV3091-19-07 05:01:004.0[facility] HermannCHEM WGOGI5133-80-30 05:01:0017[facility] HermannCHEM WKGAX9029-55-93 05:01:0025[facility]annCHEM XTJIP5601-34-20 05:01:008.1[facility] HermannCHEM NCKWE7477-32-63 05:01:00 Test Item Value Reference Range Interpretation Comments B/C Ratio (test code = B/C Ratio) 20 1 6-25 [facility]annCHEM LMOMF4144-75-69 05:01:00 Test Item Value Reference Range Interpretation Comments A/G Ratio (test code = A/G Ratio) 1.0 1 0.7-1.6 [facility]annCHE[facility] TUJZL7298-19-28 05:01:004.1[facility] HermannCHEM PANEL 2019-01-22 05:01:006.90[facility] XuwaacxJMIHBZOEYGGPP4671-43-19 05:01:00Negative *NA*(01/22/19 12:01 AM)[facility] JoxzoetADBBYWYHVH2331-50-33 05:01:000.1[facility] QvokxcyMNCIOLHCHY8947-74-49 05:01:000.7[facility] JlmwbhaAGVPHGIHJE0174-55-88 05:01:000.0[facility] VsvhhnmYIGTFWYMRM8887-87-03 05:01:000.0[facility] JDOKOAHLEY3173-38-62 05:01:000.9[facility] DkggmgxBLFDZPQCZZ0432-17-68 05:01:008.6 [facility] PksosfcKOPIZRIWUV4852-79-24 05:01:000.6[facility] HermannHEMATOLOGY 2019-01-22 05:01:0086.5[facility] WnyziinNXBOTGBCNT6033-74-54 05:01:005.7[facility] VnvkfaaDJOSQADAAF2768-50-62 05:01:006.9[facility] QlddqqxCTGPTIOYSG5957-55-50 05:01:009.9[facility] ZthtiimUCYZYSYEVP9215-32-97 05:01:0032.8[facility] DWFVSLCPCX1539-59-16 05:01:0013.6[facility] LynxtjgENUQWPHPMC4105-58-09 05:01:00 443[facility] LxdwuzoJIZABNFHGP6825-37-71 05:01:007.3[facility]annHEMATOLOGY 2019-01-22 05:01:0014.0[facility] SqhpczhDZRONNCKGD8433-37-64 05:01:004.85[facility] TzinmrnPBYTWIKSLR0051-69-01 05:01:0042.7[facility] WbsqprwWABPNVBVCM5175-28-75 05:01:00 Test Item Value Reference Range Interpretation Comments MCH (test code = MCH) 29.0 pg 27.0-31.0 [facility] WqihihpTDWEOJLEXK6932-09-74 05:01:0088.2[facility] HermannHEMATOLOGY 2019-01-22 05:01:00 Test Item Value Reference Range Interpretation Comments INR (test code = INR) 0.96 1 0.85-1.17 [facility] FfhqpftPNSENRVNBF0452-05-27 05:01:00 Test Item Value Reference Range Interpretation Comments PT (test code = PT) 12.6 s 12.0-14.7 [facility]KQMBOKDLZ0364-[facility]-29 05:01:00 Test Item Value Reference Range Interpretation Comments PTT (test code = PTT) 25.9 s 22.9-35.8 [facility] UHHUNDV2457-13-86 05:01:00Negative (01/22/19 12:01 AM) [facility]annCARDIAC QXTRNQJ4695-27-12 05:01:00<0.02[facility] CARDIAC LIEXQAF2763-74-03 05:01:0049[facility] HermannCHEM SUUZU1905-12-02 05:01:000.6[facility] HermannCHEM QRPTJ2914-65-65 05:01:35481Pxjvltat HermannCHEM SXBXV1079-19-21 05:01:004.0[facility] HermannCHEM UTFFK3871-88-71 05:01:0017 [facility]annCHEM FLHAD3761-58-19 05:01:0025[facility] HermannCHEM PANEL 2019-01-22 05:01:008.1[facility] HermannCHEM ADQQZ7686-57-25 05:01:00 Test Item Value Reference Range Interpretation Comments B/C Ratio (test code = B/C Ratio) 20 1 6-25 [facility]annCHEM RHVFO2636-05-57 05:01:00 Test Item Value Reference Range Interpretation Comments A/G Ratio (test code = A/G Ratio) 1.0 1 0.7-1.6 [facility]annCHEM GEWNX0738-19-12 05:01:004.1[facility] HermannCHEM PANEL 2019-01-22 05:01:006.90[facility] CfglpdzZVBZSSWAJDDCC3654-06-10 05:01:00Negative *NA*(01/22/19 12:01 AM)[facility] AtsryhkBOTJJWNGJZ0553-45-20 05:01:000.1[facility] VpulcvhXTOKUPSILI8115-45-66 05:01:000.7[facility] NtxmjvwMBDJRIRMYS5227-98-74 05:01:000.0[facility] PobxxqdZYGXANWVQN9794-63-63 05:01:000.0[facility] XSCWKJLXKA8761-38-32 05:01:000.9[facility] PezntkmESFVAJFNPQ1861-53-28 05:01:008.6 [facility] EziyixsYVVSMUYNGR3031-86-57 05:01:000.6[facility] HermannHEMATOLOGY 2019-01-22 05:01:0086.5[facility] MiystpnLNIQFGWLKC8982-99-05 05:01:005.7[facility] VvnbnrgQGYWNBTVAE0722-58-60 05:01:006.9[facility] YmiwmddEODWUDCLXO0526-11-16 05:01:009.9[facility] NbhkqjrMTNAOGNMHP2008-41-92 05:01:0032.8[facility] INEHHUMVWL8214-93-08 05:01:0013.6[facility] LbwwnchMLGQMWJUYB6581-70-45 05:01:00 443[facility] YqncfhsEHPWWOFHDU4004-01-40 05:01:007.3[facility] HermannHEMATOLOGY 2019-01-22 05:01:0014.0[facility] JxkibkuEAPMQBYIWS1032-59-17 05:01:004.85[facility] RxdgmgqQBXTUPLLNZ9211-97-13 05:01:0042.7[facility] TzjqqgxQOYUAQLCUQ0268-62-96 05:01:00 Test Item Value Reference Range Interpretation Comments MCH (test code = MCH) 29.0 pg 27.0-31.0 [facility]vtezxeURYLESUZVC3765-14-55 05:01:0088.2[facility]annHEMATOLOGY 2019-01-22 05:01:00 Test Item Value Reference Range Interpretation Comments INR (test code = INR) 0.96 1 0.85-1.17 [facility]xJDYVTCITXZ8187-69-84 05:01:00 Test Item Value Reference Range Interpretation Comments PT (test code = PT) 12.6 s 12.0-14.7 [facility]jffgkeMCQNLCHTIV6433-15-71 05:01:00 Test Item Value Reference Range Interpretation Comments PTT (test code = PTT) 25.9 s 22.9-35.8 [facility]ML[facility]T6146-32-49 14:36:00 Test Item Value Reference Range Interpretation [...] 0.00-0.01 N code = ETOHU) Comprehensive Metabolic Gwasg8858-31-46 14:36:00 Test Item Value Reference Range Interpretation [...] the [employer],http ://nkd ep.nih.gov Urinalysis Osyejyig5811-69-29 14:32:00 Test Item Value Reference Range Interpretation Comments Color (test code = COLOR) Yellow Yellow,Straw,Pl N yellow Clarity (test code = Clear Clear N CLAR) Specific [place] (test 1.024 1.001-1.035 N code = SPGR) [...] code = Few /HPF BACT) CBC with Nsfqalipjady8552-90-12 14:21:00 Test Item Value Reference Range Interpretation [...] code = ALYMPH) 3.0 K/cumm 0.5-4.6 N [place] Abs (test code = AMONO) 0.5 K/cumm 0.0-1.2 N Eos Abs (test code = AEOS) 0.19 K/cumm 0.00-0.74 N Baso Abs (test code = ABASO) 0.1 K/cumm 0.00-0.21 N
== END 2021-08-26 01:46 | disposition home or self-care (01) ==
LOC: ER 22:11
DX: F22 Delusional disorders (principal); F31.9 Bipolar disorder, unspecified; Z88.5 Allergy status to narcotic agent; Z88.8 Allergy status to other drugs, medicaments and biological substances; Z98.82 Breast implant status
CPT/HCPCS: 36415; 70450; 80048; 80076; 81003; 83690; 85025; 96372; 99284

== ENCOUNTER 2021-08-28 02:01 | Emergency (ER) | payer OTHER ==
[2021-08-28] MEDS ORDERED: NA CHLORIDE 0.9% 1,000 ML ONE (02:47)
[2021-08-28] MEDS ORDERED: METOPROLOL TARTRATE 5 MG/5 ML INJ IV ONE ×2 (02:47→03:00)
[2021-08-28 03:01] LABS: Protime INR 1.03
[2021-08-28 03:10] LABS: Absolute Lymphocytes (CBC) 1.2 K/uL (0.7-4.9); Basophils % 1.2 % (0-1.3); Hematocrit 40.9 % (36.0-45.0); Lymphocytes % 7.7 % (15.3-44.8); MPV 8.2 fL (7.6-11.3); RBC Red Blood Cell Count 4.76 M/uL (3.86-4.86)
[2021-08-28 03:21] LABS: ALT/SGPT 22 U/L (12-78); AST/SGOT 11 U/L (15-37); Albumin 3.7 g/dL (3.4-5.0); Alkaline Phosphatase 79 U/L (45-117); BUN Blood Urea Nitrogen 10 mg/dL (7-18); Bicarbonate 23 mmol/L (21-32); Bilirubin Direct < 0.1 mg/dL (0-0.2); Bilirubin Total 0.2 mg/dL (0.2-1.0); Glucose Level 141 mg/dL (74-106); Magnesium 2.1 mg/dL (1.8-2.4); NT PRO-BNP 153 pg/mL (<125); Potassium 3.5 mmol/L (3.5-5.1); Protein, Total 7.7 g/dL (6.4-8.2); Sodium Level 145 mmol/L (136-145); Troponin (Emerg Dept Use Only) < 0.02 ng/mL (0.0-0.045)
[2021-08-28 03:53] LABS: Barbiturates NEGATIVE (NEGATIVE); Benzodiazepines NEGATIVE (NEGATIVE); Cocaine NEGATIVE (NEGATIVE); METHAMPHETAM POSITIVE (NEGATIVE); Methadone NEGATIVE (NEGATIVE); Opiates NEGATIVE (NEGATIVE); Phencyclidine NEGATIVE (NEGATIVE); THC Cannibis NEGATIVE (NEGATIVE)
[2021-08-28 04:48] LABS: Blood Morphology Comment NOT SEEN (NOT SEEN); Platelet Estimate ADEQ
[2021-08-28] MEDS ORDERED: CEFTRIAXONE 1000 MG/VIAL ONE (05:14)
[2021-08-28] MEDS ORDERED: NA CHLORIDE 0.9% 50 ML ONE (05:14)
--- NOTE | 2021-08-28 05:19 | ER ---
Nurse's Notes [facility] Name: Tiffany Quinn Age: 51 yrs Sex: Female : 1970 Arrival Date: 08/28/2021 Time: 02:04 Bed 7 Private MD: Diagnosis: Confusion. Urinary tract infection. Substance abuse Presentation: 08/28 02:06 Chief complaint: Patient states: pt states she was seen here last night and dx w UTI. mr2 Was given rx but has yet to fill it. [place] that her legs were "weak" and became worried that something was "wrong with her". pt exhibits tangential speech and unorganized thoughts. appears paranoid, admits to using meth this afternoon. Coronavirus screen: Vaccine status: Patient reports receiving the 2nd dose of the covid vaccine. Ebola Screen: Patient negative for fever greater than or equal to 101.5 degrees Fahrenheit, and additional compatible Ebola Virus Disease symptoms Patient denies exposure to infectious person. Patient denies travel to an Ebola-affected area in the 21 days before illness onset. Initial Sepsis Screen: Does the patient meet any 2 criteria? RR > 20 per min. HR > 90 bpm. Yes Does the patient have a suspected source of infection? No. Patient's initial sepsis screen is negative. 02:06 Method Of Arrival: EMS: [facility] mr2 02:06 Risk Assessment: Do you want to hurt yourself or someone else? Patient reports no mr2 desire to harm self or others. Onset of symptoms was August 27, 2021. 02:06 Acuity: MANUEL 3 mr2 Triage Assessment: 02:13 General: Appears distressed, unkempt, Behavior is anxious, restless. Pain: Denies pain. 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 - Social history:: Smoking status: Patient/guardian denies using tobacco, the patient reports quitting approximately 2 years ago. Screenin:25 Abuse screen: Denies threats or abuse. Nutritional screening: No deficits noted. df1 Tuberculosis screening: No symptoms or risk factors identified. Fall Risk Fall in past 12 months (25 points). Secondary diagnosis (15 points) impaired mobility, IV access (20 points). Ambulatory Aid- None/Bed Rest/Nurse Assist (0 pts). Gait- Weak (10 pts.). Mental Status- Overestimates/Forgets Limitations (15 pts.). Assessment: 03:36 General: Appears unkempt, Behavior is anxious, flat, restless. Pain: Denies pain. df1 Neuro: No deficits noted. Cardiovascular: No deficits noted. Respiratory: No deficits noted. GI: No deficits noted. : No deficits noted. EENT: No deficits noted. Derm: No deficits noted. Musculoskeletal: No deficits noted. Overdose: 03:35 [place] Suicide Severity Screening: "In the past month, have you wished you were df1 or wished you could go to sleep and not wake up?" Patient responds "no." "In the past month, have you actually had any thoughts of killing yourself?" Patient responds "no." "In your lifetime, have you ever done anything, started to do anything, or prepared to do anything to end your life?" Patient responds "no.". 03:36 Knox Suicide Severity Screening:. df1 05:46 Knox Suicide Severity Screening: "In the past month, have you wished you were lc1 or wished you could go to sleep and not wake up?" Patient responds "yes." Based off client's responses, additional C-SSRS screening questions required. "In the past month, have you actually had any thoughts of killing yourself?" Patient responds "no.". 05:47 Knox Suicide Severity Screening: "In the past month, have you actually had any lc1 thoughts of killing yourself?" Patient responds "yes.". 05:50 Knox Suicide Severity Screening: "In the past month, have you actually had any lc1 thoughts of killing yourself?" Patient responds "yes." Based off client's responses, additional C-SSRS screening questions required. Vital Signs: 02:06 BP 135 / 114; Pulse 134; Resp 21; Temp 99.1; Pulse Ox 99% on R/A; Weight 83.91 kg; mr2 Height 5 ft. 2 in. (157.48 cm) (R); 03:24 Pulse 117; Resp 18; Pulse Ox 100% on R/A; df1 03:52 BP 148 / 103; Pulse 102; Resp 18; Pulse Ox 97% on R/A; df1 04:25 BP 142 / 81; Pulse 101; Resp 18; Pulse Ox 97% on R/A; df1 04:50 BP 134 / 83; Pulse 99; Resp 18; Pulse Ox 96% on R/A; Pain 0/10; df1 02:06 Body Mass Index 33.84 (83.91 kg, 157.48 cm) mr2 ED Course: 02:04 Patient arrived in ED. mr2 02:13 Triage completed. mr2 02:13 Arm band placed on. mr2 02:19 Goran Bledsoe MD is Attending Physician. pkl 02:40 Tiffanie Weber is Primary Nurse. df1 02:44 No provider procedures requiring assistance completed. Inserted saline lock: 18 gauge df1 in right antecubital area, using aseptic technique. 02:45 Basic Metabolic Panel Sent. df1 02:45 Basic Metabolic Panel Sent. df1 02:45 CBC with Diff Sent. df1 02:45 LFT's Sent. df1 02:45 Magnesium Sent. df1 02:45 NT PRO-BNP Sent. df1 02:45 PT-INR Sent. df1 02:45 Troponin (emerg Dept Use Only) Sent. df1 03:02 CT Neck Angio Sent. df1 03:02 CT Head Angio Sent. df1 03:02 Basic Metabolic Panel Sent. df1 03:02 CT Head Brain wo Cont Sent. df1 03:02 XRAY Chest (1 view) Sent. df1 03:03 CBC with Diff Sent. df1 03:03 LFT's Sent. df1 03:03 Magnesium Sent. df1 03:03 NT PRO-BNP Sent. df1 03:03 PT-INR Sent. df1 03:03 Troponin (emerg Dept Use Only) Sent. df1 03:04 XRAY Chest (1 view) In Process Unspecified. EDMS 03:24 Patient has correct armband on for positive identification. Placed in gown. Bed in low df1 position. Call light in reach. Side rails up X 1. 03:24 UDS Sent. df1 03:25 Straight cath inserted, using sterile technique, 16 Fr. Specimen obtained. Returned df1 he urine. 03:32 Inserted saline lock: 20 gauge in left upper arm, using aseptic technique. df1 03:49 CT Head Brain wo Cont In Process Unspecified. EDMS 03:49 CT Head Angio In Process Unspecified. EDMS 03:49 CT Neck Angio In Process Unspecified. EDMS 05:46 IV discontinued, intact, bleeding controlled, Pressure dressing applied. lc1 Administered Medications: 03:00 Drug: Lopressor (metoprolol) 5 mg Route: IVP; Site: right antecubital; df1 03:02 Drug: NS 0.9% 1000 ml Route: IV; Rate: 125 ml/hr; Site: right antecubital; df1 05:49 Follow up: Response: No adverse reaction; IV Status: Completed infusion lc1 03:43 Drug: Lopressor (metoprolol) 5 mg Route: IVP; Site: left upper arm; df1 05:49 Follow up: Response: No adverse reaction lc1 05:24 Drug: Rocephin (cefTRIAXone) 1 grams Route: IV; Rate: calculated rate; Site: left upper df1 arm; 05:48 Follow up: Response: No adverse reaction; IV Status: Completed infusion [facility] Outcome: 05:19 Discharge ordered by . reese 05:46 Discharged to home ambulatory. [facility] 05:46 Condition: improved 05:46 Discharge instructions given to patient, Instructed on discharge instructions, Demonstrated understanding of instructions, follow-up care. 05:48 Patient left the ED. lc1 Signatures: Dispatcher [employer] EDGoran Hull MD MD pkl Calhoun, Lisa lc1 Teddy Coleman RN RN mr2 Tiffanie Weber df1 Corrections: (The following items were deleted from the chart) 03:34 03:26 [place] Suicide Severity Screening: "In the past month, have you wished you were df1 or wished you could go to sleep and not wake up?" Patient responds "no." "In the past month, have you actually had any thoughts of killing yourself?" Patient responds "no." "In your lifetime, have you ever done anything, started to do anything, or prepared to do anything to end your life?" Patient responds "no." df1 03:34 03:33 Knox Suicide Severity Screening: "In the past month, have you wished you were df1 or wished you could go to sleep and not wake up?" Patient responds "yes." Based off client's responses, additional C-SSRS screening questions required. "In the past month, have you actually had any thoughts of killing yourself?" Patient responds "no." df1 :34 03:33 Knox Suicide Severity Screening: "In the past month, have you wished you were df1 or wished you could go to sleep and not wake up?" Patient responds "no." "In the past month, have you actually had any thoughts of killing yourself?" Patient responds "no." "In your lifetime, have you ever done anything, started to do anything, or prepared to do anything to end your life?" Patient responds "no." df1
--- NOTE | 2021-08-28 05:19 | EDPHYS ---
Physician Documentation [facility] Name: Tiffany Quinn Age: 51 yrs Sex: Female : 1970 Arrival Date: 08/28/2021 Time: 02:04 Bed 7 Private MD: ED Physician Goran Bledsoe HPI: 08/28 02:33 This 51 yrs old Female presents to ER via EMS with complaints of Anxiety, pkl Drug Abuse. 02:33 The patient presents with confusion. Onset: The symptoms/episode began/occurred today. pkl Associated signs and symptoms: Pertinent positives: weakness, both legs. Patient diagnosed with UTI last night. Taking Bactrim at present. 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 - Social history:: Smoking status: Patient/guardian denies using tobacco, the patient reports quitting approximately 2 years ago. ROS: 02:33 Eyes: Negative for injury, pain, redness, and discharge, ENT: Negative for injury, pkl pain, and discharge, Neck: Negative for injury, pain, and swelling, Cardiovascular: Negative for chest pain, palpitations, and edema, Respiratory: Negative for shortness of breath, cough, wheezing, and pleuritic chest pain, Abdomen/GI: Negative for abdominal pain, nausea, vomiting, diarrhea, and constipation, Back: Negative for injury and pain, : Negative for injury, bleeding, discharge, and swelling, MS/Extremity: Negative for injury and deformity, Skin: Negative for injury, rash, and discoloration. 02:33 Neuro: Positive for altered mental status, confused. 02:33 Psych: Positive for anxiety. Exam: 02:36 Head/Face: Normocephalic, atraumatic. Eyes: Pupils equal round and reactive to light, pkl extra-ocular motions intact. Lids and lashes normal. Conjunctiva and sclera are non-icteric and not injected. Cornea within normal limits. Periorbital areas with no swelling, redness, or edema. ENT: Nares patent. No nasal discharge, no septal abnormalities noted. Tympanic membranes are normal and external auditory canals are clear. Oropharynx with no redness, swelling, or masses, exudates, or evidence of obstruction, uvula midline. Mucous membranes moist. Neck: Trachea midline, no thyromegaly or masses palpated, and no cervical lymphadenopathy. Supple, full range of motion without nuchal rigidity, or vertebral point tenderness. No Meningismus. Chest/axilla: Normal chest wall appearance and motion. Nontender with no deformity. No lesions are appreciated. Cardiovascular: Regular rate and rhythm with a normal S1 and S2. No gallops, murmurs, or rubs. Normal PMI, no JVD. No pulse deficits. Respiratory: Lungs have equal breath sounds bilaterally, clear to auscultation and percussion. No rales, rhonchi or wheezes noted. No increased work of breathing, no retractions or nasal flaring. Abdomen/GI: Soft, non-tender, with normal bowel sounds. No distension or tympany. No guarding or rebound. No evidence of tenderness throughout. Back: No spinal tenderness. No costovertebral tenderness. Full range of motion. Skin: Warm, dry with normal turgor. Normal color with no rashes, no lesions, and no evidence of cellulitis. MS/ Extremity: Pulses equal, no cyanosis. Neurovascular intact. Full, normal range of motion. 02:36 Neuro: Orientation: is normal, Mentation: is normal, Cranial nerves: grossly normal, Motor: is normal. 02:36 Psych: Behavior/mood is anxious, Patient has no thoughts/intents to harm self or others. Vital Signs: 02:06 BP 135 / 114; Pulse 134; Resp 21; Temp 99.1; Pulse Ox 99% on R/A; Weight 83.91 kg; mr2 Height 5 ft. 2 in. (157.48 cm) (R); 03:24 Pulse 117; Resp 18; Pulse Ox 100% on R/A; df1 03:52 BP 148 / 103; Pulse 102; Resp 18; Pulse Ox 97% on R/A; df1 04:25 BP 142 / 81; Pulse 101; Resp 18; Pulse Ox 97% on R/A; df1 04:50 BP 134 / 83; Pulse 99; Resp 18; Pulse Ox 96% on R/A; Pain 0/10; df1 02:06 Body Mass Index 33.84 (83.91 kg, 157.48 cm) mr2 MDM: 02:19 Patient medically screened. pkl 05:15 Data reviewed: vital signs, nurses notes, lab test result(s), EKG, radiologic studies, pkl CT scan. ED course: Patient feeling better. Discussed lab, EKG and imaging studies with patient. Advised to follow up with PCP in 2 to 3 days. To return if necessary. Patient understood instructions. 08/28 02:31 Order name: Basic Metabolic Panel pkl 08/28 02:31 Order name: CBC with Diff; Complete Time: 05:03 pkl 08/28 02:31 Order name: LFT's; Complete Time: 04:42 pkl 08/28 02:31 Order name: Magnesium; Complete Time: 04:42 pkl 08/28 02:31 Order name: NT PRO-BNP; Complete Time: 04:42 pkl 08/28 02:31 Order name: PT-INR; Complete Time: 04:42 pkl 08/28 02:31 Order name: Troponin (emerg Dept Use Only); Complete Time: 04:42 pkl 08/28 02:31 Order name: UDS; Complete Time: 04:42 pkl 08/28 02:32 Order name: Basic Metabolic Panel; Complete Time: 04:42 EDMS 08/28 03:25 Order name: Manual Differential; Complete Time: 05:03 EDMS 08/28 03:59 Order name: CREATININE WHOLE BLOOD; Complete Time: 04:42 EDMS 08/28 05:05 Order name: Urine Microscopic Only ds4 08/28 05:05 Order name: Urine Culture ds4 08/28 02:31 Order name: XRAY Chest (1 view) pkl 08/28 02:31 Order name: EKG; Complete Time: 02:32 pkl 08/28 02:31 Order name: Cardiac monitoring; Complete Time: 02:45 pkl 08/28 02:31 Order name: EKG - Nurse/Tech; Complete Time: 03:02 pkl 08/28 02:31 Order name: IV Saline Lock; Complete Time: 02:45 pkl 08/28 02:31 Order name: Labs collected and sent; Complete Time: 02:45 pkl 08/28 02:31 Order name: O2 Per Protocol; Complete Time: :45 pkl 08/28 02:31 Order name: O2 Sat Monitoring; Complete Time: :45 pkl 08/28 02:31 Order name: CT Head Brain wo Cont pkl 08/28 02:31 Order name: CT Head Angio pkl 08/28 02:31 Order name: CT Neck Angio pkl Administered Medications: 03:00 Drug: Lopressor (metoprolol) 5 mg Route: IVP; Site: right antecubital; df1 03:02 Drug: NS 0.9% 1000 ml Route: IV; Rate: 125 ml/hr; Site: right antecubital; df1 05:49 Follow up: Response: No adverse reaction; IV Status: Completed infusion lc1 03:43 Drug: Lopressor (metoprolol) 5 mg Route: IVP; Site: left upper arm; df1 05:49 Follow up: Response: No adverse reaction lc1 05:24 Drug: Rocephin (cefTRIAXone) 1 grams Route: IV; Rate: calculated rate; Site: left upper df1 arm; 05:48 Follow up: Response: No adverse reaction; IV Status: Completed infusion lc1 Disposition Summary: 08/28/21 05:19 Discharge Ordered Location: Home pkl Problem: new pkl Symptoms: have improved pkl Condition: Stable pkl Diagnosis - Confusion. Urinary tract infection. Substance abuse pkl Followup: pkl - With: Private Physician - When: 2 - 3 days - Reason: Re-evaluation by your physician Forms: - Medication Reconciliation Form pkl - Thank You Letter pkl - Antibiotic Education pkl - Prescription Opioid Use pkl Signatures: Dispatcher [employer] EDMS Goran Bledsoe MD MD pkl Teddy Coleman RN RN mr2 Tiffanie Weber df1 Paulina Emmanuel lc1 Corrections: (The following items were deleted from the chart) 02:33 02:32 CREATININE, SERUM+C.LAB.BRZ ordered. EDMS EDMS
[2021-08-28 05:55] LABS: Calcium Oxalate Crystals- Ur FEW (NONE SEEN); Urine Bacteria <20 /HPF (<20); Urine RBC <5 /HPF (NONE SEEN); Urine Urothelial Cells <5 /HPF (NONE SEEN)
[2021-08-28 05:56] VITALS: TEMP 99.1
[2021-08-28 06:03] VITALS: BP 134/83; O2SAT 96
--- NOTE | 2021-08-28 07:52 | RAD REPORT ---
EXAM DESCRIPTION: Blake Single View08/28/2021 3:04 am CLINICAL HISTORY: Chest pain COMPARISON: June 2021 FINDINGS: Bilateral breast implants. The lungs appear clear of acute infiltrate. The heart is normal size IMPRESSION: No acute abnormalities displayed
--- NOTE | 2021-08-28 08:15 | RAD REPORT ---
EXAM DESCRIPTION: Victor Hugo Angio08/28/2021 6:52 am CLINICAL HISTORY: Syncope COMPARISON: None TECHNIQUE: 50 cc Isovue 370 was administered intravenously. 3D MIP reconstruction performed All CT scans are performed using dose optimization technique as appropriate and may include automated exposure control or mA/KV adjustment according to patient size. IMPRESSION: NASCET criteria used. Mild 0-49% stenosis Moderate 50-69% stenosis Severe 70-99% stenosis
--- NOTE | 2021-08-28 13:33 | RAD REPORT ---
EXAM DESCRIPTION: CT - Head Brain Wo Cont - 08/28/2021 6:52 am CLINICAL HISTORY: The patient is 51 years old and is Female; weakness in legs TECHNIQUE: Axial computed tomography images of the head/brain without intravenous contrast. Sagitt al and coronal reformatted images were created and reviewed. This CT exam was performed using one o r more of the following dose reduction techniques: automated exposure control, adjustment of the mA and/or kV according to patient size, and/or use of iterative reconstruction technique. COMPARISON: No relevant prior studies available. FINDINGS: Brain: Unremarkable. No hemorrhage. No significant white matter disease. No edema. Ventricles: Unremarkable. No ventriculomegaly. Bones/joints: Unremarkable. No acute fracture. Soft tissues: Unremarkable. Sinuses: Unremarkable as visualized. Mastoid air cells: Unremarkable as visualized. No mastoid effusion. * A single impression for all exams can be found at the end of this report EXAM DESCRIPTION: CT Angiography Neck With Intravenous Contrast CLINICAL HISTORY: The patient is 51 years old and is Female; weakness in legs TECHNIQUE: Axial computed tomographic angiography images of the neck with intravenous contrast. Sa gittal and coronal reformatted images were created and reviewed. This CT exam was performed using o ne or more of the following dose reduction techniques: automated exposure control, adjustment of th e mA and/or kV according to patient size, and/or use of iterative reconstruction technique. MIP rec onstructed images were created and reviewed. COMPARISON: No relevant prior studies available. FINDINGS: VASCULATURE: Right common carotid artery: Unremarkable. No significant stenosis. No dissection or occlusio n. Right internal carotid artery: Unremarkable. Extracranial segment is patent with no significant stenosis. No dissection or occlusion. Right external carotid artery: Unremarkable. No occlusion. Right vertebral artery: Unremarkable. No significant stenosis. No dissection or occlusion. Left common carotid artery: Unremarkable. No significant stenosis. No dissection or occlusion . Left internal carotid artery: Unremarkable. Extracranial segment is patent with no significant stenosis. No dissection or occlusion. Left external carotid artery: Unremarkable. No occlusion. Left vertebral artery: Unremarkable. No significant stenosis. No dissection or occlusion. NECK: Bones/joints: No acute fracture. No dislocation. Soft tissues: Unremarkable as visualized. No mass. CAROTID STENOSIS REFERENCE USING NASCET CRITERIA: % ICA stenosis = (1 - narrowest ICA diameter/diameter of distal cervical ICA) x 100. Mild - <50% stenosis. Moderate - 50-69% stenosis. Severe - 70-94% stenosis. Near occlusion - 95-99% stenosis. Occluded - 100% stenosis. * A single impression for all exams can be found at the end of this report EXAM DESCRIPTION: CT Angiography Head With Intravenous Contrast CLINICAL HISTORY: The patient is 51 years old and is Female; weakness in legs TECHNIQUE: Axial computed tomographic angiography images of the head with intravenous contrast. Sa gittal and coronal reformatted images were created and reviewed. This CT exam was performed using o ne or more of the following dose reduction techniques: automated exposure control, adjustment of th e mA and/or kV according to patient size, and/or use of iterative reconstruction technique. MIP rec onstructed images were created and reviewed. COMPARISON: No relevant prior studies available. FINDINGS: Right internal carotid artery: No acute findings. Intracranial segment is patent with no significant stenosis. No aneurysm. Right anterior cerebral artery: Unremarkable. No occlusion or significant stenosis. No aneury sm. Right middle cerebral artery: Unremarkable. No occlusion or significant stenosis. No aneurysm . Right posterior cerebral artery: Unremarkable. No occlusion or significant stenosis. No aneur ysm. Right vertebral artery: Unremarkable as visualized. Left internal carotid artery: No acute findings. Intracranial segment is patent with no signifi cant stenosis. No aneurysm. Left anterior cerebral artery: Unremarkable. No occlusion or significant stenosis. No aneurys m. Left middle cerebral artery: Unremarkable. No occlusion or significant stenosis. No aneurysm. Left posterior cerebral artery: Unremarkable. No occlusion or significant stenosis. No aneury sm. Left vertebral artery: Unremarkable as visualized. Basilar artery: Unremarkable. No occlusion or significant stenosis. No aneurysm. * A single impression for all exams can be found at the end of this report IMPRESSION: CT Head Without Intravenous Contrast: No acute intracranial abnormality. CT Angiography Neck With Intravenous Contrast: No significant stenosis. No dissection or occlusion. CT Angiography Head With Intravenous Contrast: No occlusion or significant stenosis. No aneurysm. Electronically signed by: Ernesto Longoria MD 08/28/2021 4:51 AM CDT Due to temporary technical issues with the PACS/Fluency reporting system, reports are being signed by the in house radiologists without review as a courtesy to insure prompt reporting. The interpreting radiologist is fully responsible for the content of the report.
--- OUTSIDE RECORDS SUMMARY | 2021-09-06 10:30 | XMS REPORT | Continuity of Care Document ---
:1970 Author Organization [facility] t Address [address] [place] [address] Care Team Providers Name Role Phone UNKNOWN [...] oria 3 01:52:00 l LOW PB 00:00: Bertha 00 Active 01/21/2019 [facility] INFECTIOUS Diagnosis Active 2019-02-06 Memoria GASTROENTE 330 08:58:00 l RITIS AND 00:00: Bertha COLITIS INFECTIOUS 00 GASTROENTE RITIS AND COLITIS Active 01/21/2019 [facility] Irregular Irregular Disease Active Uni vers menstrual menstrual 8-15 ity of cycle cycle 00:00: [address] Skin Skin Disease Active Univers lesion lesion 8-15 ity of 00:00: [address] Psychiatri Psychiatri Disease Active U nivers c disorder c disorder 8-15 it y of 00:00: [address] Well woman Well woman Disease Active U kavita exam with exam with 8-15 ity of routine routine 00:00: [place] gynecologi gynecologi 00 Me dical nicky exam nicky exam Branch INFECTIOUS Diagnosis Active 2019-02-06 Memoria GASTROENTE 08:58:00 winifred WALTON AND Yonis COLITIS, INFECTIOUS GASTROENTE RITIS AND COLITIS, Active [facility] Allergies, Adverse Reactions, Alerts Allergy Allergy Status Severity Reaction(s) Onset Inactive Treating Comm ents Source Name Type Date Date Clinician NO KNOWN Drug Active Univers ALLERGIE Class ity of S [facility] Phenerga Phenerga Active Memori a n n l Yonis Social History Social Habit Start Date Stop Date Quantity Comments Source History of Cigarette Smoker [facility] tobacco use [facility] Tobacco Comment 2-3 cigs a day Unive [facility] Exposure to Not sure [facility] SARS-CoV-2 [facility] (event) [place] Tobacco use and 2016-06-08 2016-06-08 Never used [facility] y of exposure 00:00:00 00:00:00 [facility] Alcohol intake 2016-06-08 2016-06-08 Current University 00:00:00 00:00:00 non-drinker of [facility] alcohol (finding) Branch Smoking Status Start Date Stop Date Source Social History 2019-01-22 05:00:12 [facility] Current some day smoker 2016-06-08 00:00:00 [facility] Medications Ordered Filled Start Stop Current Ordering Indication Dosage Frequency Signature Comments Components Source Medication Medication Date Date Medication? Clinician (SIG) Name Name ondansetron 2019-10 2020- No 4mg 4 mg, [facility] ers (ZOFRAN-ODT 2-05 05- Oral, ity of ) 15:15: 14:16 ONCE, 1 [place] disintegrat 00 :00 dose, Mon Med ical ing tablet 09/30/20 at [facility] 4 mg 0915, Routine ondansetron 2019-10 2020- No 4mg 4 mg, [facility] ers (ZOFRAN-ODT 2-05 05- Oral, ity of ) 14:30: 13:32 ONCE, 1 [place] disintegrat 00 :00 dose, Mon Med ical ing tablet 09/30/20 at [facility] 4 mg 0830, Routine ondansetron 2019-10 Yes [id number] 4mg Take 1 Univers 4 mg 2-07 tablet by ity of disintegrat 00:00: mouth [place] ing tablet 00 every 8 Medica l (eight) Branch hours as needed for Nausea and Vomiting (N/V). ciprofloxac 2019- Yes 500 mg = 1 Memoria in 500 mg 4-04 tab, PO, l oral tablet 17:35: [id number], X Yonis 00 4 day, # 8 tab, 0 Refill(s) Ondansetron 2018- Yes 4 mg = 1 Me moria 4 MG Oral 4-04 tab, PO, l Tablet 17:35: Q6H, PRN Bertha [Zofran] 00 Nausea/Vom iting, # 20 tab, [...] 4-04 tab, PO, l oral tablet 17:35: [id number], X Bertha 00 4 day, # 8 tab, 0 [...] Memoria 4-01 Route: PO, l 22:00: QPM, Bertha Dosing Weight 75, kg, Start date: 01/23/19 [...] Memori a 01-23 interfere l 15:00: w/enteral Bertha 00 feedings - Take 1 hr before [...] PO, ONCE, l mEq oral 14:20: 0 Bertha tablet, 00 Refill(s) extended release Metronidazo No 500 mg, Mem oria le 500 MG 4-01 PO, l Oral Tablet 14:20: [id number], 0 H ermann [Flagyl] 00 Refill(s) Ciprofloxac No 500 mg, Mem oria in 500 MG 4-01 PO, l Oral Tablet 14:20: [id number], 0 Yonis [Cipro] 00 Refill(s) potassium Yes 40 mEq, Memor ia chloride 20 4-01 PO, ONCE, l mEq oral 14:20: 0 Bertha tablet, 00 Refill(s) extended release Metronidazo No 500 mg, Mem oria le 500 MG 4-01 PO, l Oral Tablet 14:20: ABXQ8H, 0 H ermann [Flagyl] 00 Refill(s) Ciprofloxac No 500 mg, Mem oria in 500 MG 4-01 PO, l Oral Tablet 14:20: [id number], 0 Yonis [Cipro] 00 Refill(s) Potassium No Notes: Memori a Chloride 01-23 (Same as: l 14:17: K-Dur 20) Bertha "Do Not Crush" Give with food and [...] oria 3-31 to exceed l 15:03: 400mg/day. Bertha (Same As: Ultram) normal No 1,000 mL, [...] 3-31 Route: IM, l 09:47: Drug form: Bertha 00 PDR/INJ, PRN, Dosing Weight 75.994, kg, PRN Blood Glucose Results, Start date: 01/22/19 4:47:00 CDT, Duration: 30 day, Stop date: 02/21/19 4:46:00 CDT Dextrose 2019-0 No 12.5 gm, Memor ia 50% Syringe 3-31 25 mL, l 09:47: Route: Bertha 00 IVP, Drug Form: INJ, Dosing Weight [...] Memoria 3-31 (Same as: l 08:56: Zofran) Bertha 00 MEDICATION WASTE Product Size: 4 mg Product Wasted: ___ mg Zofran No Notes: Memoria 3-31 (Same as: l 08:56: Zofran) Bertha 00 MEDICATION WASTE Product Size: 4 mg [...] moria IV 3-31 1,000 l 08:52: ml/hr, Bertha 00 Infuse Over: 1 hr, Route: IV, [...] moria IV 3-31 1,000 l 05:44: ml/hr, Bertha 00 Infuse Over: 1 hr, Route: IV, 1,000, Drug form: INJ, ONCE, Priority: STAT, Dosing Weight 75.994 kg, Start date: 01/22/19 0:44:00 CDT, Stop date: 01/22/19 0:44:00 CDT Zofran No Notes: Memoria 3-31 (Same as: l 04:52: Zofran) MEDICATION WASTE Product Size: 4 mg Product Wasted: ___ mg Saline No Notes: Memoria Flush 0.9% 3-31 Same as: l 04:52: BD Bertha 00 Posiflush Sterile Zofran No Notes: Memoria [...] tablet by ity of HYDROCHLORI 00:00: mouth [place] DE,) 4 mg 00 every 8 Medical tablet (eight) Branch hours. ibuprofen Yes 200mg Take 200 Uni vers (ADVIL) 200 8-15 mg by ity of mg tablet 19:02: mouth [place] 27 every 6 Medical (six) Branch hours as needed. CLONAZEPAM Yes Take by Uni vers (KLONOPIN 8-15 mouth. ity of ORAL) 19:02: [place] 27 Medical Branch CITALOPRAM Yes Take by Uni vers HYDROBROMID 8-15 mouth. ity of E 19:02: [place] (CITALOPRAM 27 Medical ORAL) Branch misoprostol Yes [...] H it y of en-caff 00:00: PRN. [place] (ESGIC) 00 Medical 50-325-40 Branch mg tablet dextroamphe Yes TK 1 T PO U nivers tamine-amph 7-20 BID. ity of etamine 00:00: [place] (ADDERALL) 00 Medical 20 mg Branch tablet amoxicillin 2014-10 Yes 500mg Take 1 Cap Univers (TRIMOX) 1-16 by mouth 3 ity o f 500 mg 00:00: (three) [place] capsule 00 times Medical daily. Branch traMADOL 2014-10 Yes 50mg Take 1 Tab Uni vers (ULTRAM) 50 1-16 by mouth ity of mg tablet 00:00: every 6 [place] 00 (six) Medical hours as Branch needed for Pain (scale 4-6). naproxen 2015-1 Yes 500mg Take 1 Tab Un parul (NAPROSYN) 1-16 by mouth 2 ity of 500 mg 00:00: (two) [place] tablet 00 times Medical daily with Branch meals. Vital Signs Vital Name Observation Time Observation Value Comments Source Systolic blood 2020-09-30 14:00:00 126 mm[Hg] Univer sity of pressure [facility] Diastolic blood 2020-09-30 14:00:00 84 mm[Hg] Unive rsity of [facility] Heart rate 2020-09-30 14:00:00 79 /min Universi ty of [facility] Oxygen saturation in 2020-09-30 14:00:00 98 /min University of Arterial blood by [facility] Pulse oximetry Branch Body temperature 2020-09-30 13:26:00 37.22 Ruthann [facility] ersity of [facility] Respiratory rate 2020-09-30 13:26:00 16 /min Univ ersity of [facility] Body weight 2020-09-30 13:26:00 72.576 kg Universi ty of [facility] BMI 2020-09-30 13:26:00 28.80 kg/m2 Universi ty of [facility] Systolic blood 2020-09-30 14:00:00 126 mm[Hg] Univer sity of [facility] Diastolic blood 2020-09-30 14:00:00 84 mm[Hg] Unive rsity of [facility] Heart rate 2020-09-30 14:00:00 79 /min Universi ty of [facility] Branch Oxygen saturation in 2020-09-30 14:00:00 98 /min University of Arterial blood by [facility] Pulse oximetry Branch Body temperature 2020-09-30 13:26:00 37.22 Ruthann [facility] ersity of [facility] Branch Respiratory rate 2020-09-30 13:26:00 16 /min Univ ersity [facility] [place] [facility] Body weight 2020-09-30 13:26:00 72.576 kg Universi ty of [facility] BMI 2020-09-30 13:26:00 28.80 kg/m2 Universi ty of [facility] Temperature Oral (F) 2019-01-28 01:16:00 98.6 F [facility] Bertha Systolic (mm Hg) 2019-01-28 01:16:00 Estrada nadir Bertha Diastolic (mm Hg) 2019-01-28 01:16:00 Mem orial Bertha Heart Rate 2019-01-28 01:16:00 Memorial Yonis Respitory Rate 2019-01-28 01:16:00 Memori al Bertha Systolic (mm Hg) 2019-01-27 20:42:00 Estrada rial Bertha Diastolic (mm Hg) 2019-01-27 20:42:00 Mem orial Yonis Heart Rate 2019-01-27 20:42:00 Memorial Yonis Respitory Rate 2019-01-27 20:42:00 Memori al Bertha Temperature Oral (F) 2019-01-27 20:42:00 98.5 F [facility] Bertha Systolic (mm Hg) 2019-01-27 17:00:00 Estrada rial Yonis Diastolic (mm Hg) 2019-01-27 17:00:00 Mem orial Bertha Temperature Oral (F) 2019-01-27 17:00:00 98.5 F [facility] Bertha Heart Rate 2019-01-27 17:00:00 [facility] Yonis Respitory Rate 2019-01-27 17:00:00 Memori al Yonis Height 2019-01-22 14:35:00 157.48 cm Memorial Yonis BMI Calculated 2019-01-22 14:35:00 Memori al Yonis Weight 2019-01-22 14:35:00 [facility] Bertha Weight 2019-01-22 04:34:00 [facility] Bertha Procedures Procedure Date / Time Performed Performing Clinician Sourc e URINALYSIS 2020-09-30 13:27:00 Chuy Jackson o f [facility] ADC,CLC OR LCC ONLY - 2020-09-30 13:27:00 Chuy Jackson [facility] INFLUENZA A & B DIRECT Medical B ranch ANTIGEN COVID-19 (ID NOW RAPID 2020-09-30 13:27:00 Chuy Jackson [facility] TESTING) Medical Branch Encounters Start End Encounter Admission Attending Care Care Encounter Source Date/Time Date/Time Type Type Clinicians Facility Department ID 2019-01-22 Inpatient E [facility] [id number] [facility] 04:39:00 2020-09-30 2020-09-30 Emergency DENIA Jackson [id number] 07:22:00 08:18:00 Chuy Jimenez [id number] [place] [id number] [place] [id number] 2020-09-30 2020-09-30 Emergency [facility] [id number] Univers 07:22:00 08:18:00 Chuy Jimenez [id number] i Alyssa [id number] [facility] [id number] [place] [address] Branch 2020-09-30 2020-09-30 Emergency X [facility] ERT [id number] Univers 07:22:00 07:22:00 CHUY tubbs [facility] [place] [facility] 2020-03-04 2020-03-14 Inpatient 3 [facility] PSY [id number] 15:38:00 15:25:00 [facility] 2019-01-22 2019-01-28 Inpatient [facility] [id number] Memoria 04:33:00 04:40:00 Yonis 00 l [facility] 2018-02-21 2018-02-20 Inpatient [facility] [id number] 14:48:00 13:18:00 [facility] Results Test Description Test Time Test Comments Results Result Comments Source ADC,CLC OR LCC ONLY - INFLUENZA A & B DIRECT ANTIGEN 2020-09 14:04:00 Test Item Value Reference Range Interpretation Comme nts Influenza A (test code = 04425-8) Negative Negative Influenza B (test code = 08365-0) Negative Negative Lab Interpretation (test code = 90644-8) Normal [facility] [place] [facility] NOW [facility]APID TESTING)2020-09-30 14:03:00 Test Item Value Reference Range Interpretation Comments SARS-CoV-2 Rapid ID NOW Not Detected Not Detected (test code = 42149-1) PERRY (test code = PERRY) ID NOW COVID-19 Assay is an isothermal nucleic acid amplification test intended for the qualitative detection of nucleic acid from SARS-CoV-2 viral RNA in nasopharyngeal (ACCOUNTS PAYABLE ACCOUNTANT) specimens. It is used under Emergency Use [...] indicated. Lab Interpretation Normal (test code = 85009-1) [facility] [place] [facility]2020-[facility] 13:55:00 Test Item Value Reference Range Interpretation Comments APPEARANCE (test code = Hazy Clear A 3802344974) COLOR (test code = Yellow Yellow 8837507504) PH (test code = 4.8-8.0 4548863400) SP GRAVITY (test code = 1.003-1.030 7731515816) GLU U QUAL (test code = Normal Normal 1118293624) BLOOD (test code = Negative Negative 7514405128) KETONES (test code = 5 mg/dL Negative A 6386974908) PROTEIN (test code = Negative Negative 2887-8) UROBILIN (test code = 2.0 mg/dL Normal A 0614416808) BILIRUBIN (test code = Negative Negative 4545829910) NITRITE (test code = Negative Negative 8898604741) LEUK ROZINA (test code = 25/uL Negative A 9154225680) RBC/HPF (test code = See_Comment [Autom ated message] 9292205822) The system [employer] generated this result transmit ngozi reference range : 0 - 3 HPF. The refe rence range was not u sed to interpret th is result as normal/abnormal . WBC/HPF (test code = See_Comment [Autom ated message] 9289814407) The system [employer] generated this result transmit ngozi reference range : 0 - 5 HPF. The refe rence range was not u sed to interpret th is result as normal/abnormal . BACTERIA (test code = Few Negative A 3859458536) MUCOUS (test code = Slight Negative LPF A 4327300905) SQ EPITH (test code = HPF 9543514050) Lab Interpretation (test Abnormal code = 18774-2) [facility] [place] [facility] Zxmvpssgwmo7890-94-38 16:42:24 Test Item Value Reference Range Interpretation [...] = 10-24-2020 N Expiration Dt) Thyroid Stimulating Psjwlxg6053-65-46 08:35:16 Test Item Value Reference Range Interpretation Comments TSH (test code = TSH) 1.170 mIU/mL 0.270-4.200 Lipid Enfab4999-22-36 08:21:19 Test Item Value Reference Range Interpretation Comments Cholesterol Total 254 mg/dL 0-200 H RISK OF HE ART (test code = DISEASEPublishe d by Cholesterol Total) [place] [employer] Cathie lyte Optimal Borderl ine [...] calculation is LDL/HDL Ratio=L DL Calc/HDL Chol HICYEAMFIVSY3255-25-84 08:24:008.6[facility] FemuhbrYUSVMSZXBVXS6835-51-48 08:24:23440Vntuyrir DxsxqedVBONWBZBYZKI1557-37-30 08:24:0027[facility] Yonis RHIUVSRRJGWX5004-71-90 08:24:59510Mjkwxbwo TobtvvaTHXMPAVUSBCK9781-15-41 08:24:003.6[facility]orial KqkmaicHBWNZZXXKUUP6140-37-98 08:24:000.70[facility] Yonis MUOGJCTXCVXW1949-98-00 08:24:008.4[facility]orial HwubrvgDGVJQXYBKFFV1021-47-93 08:24:50344Azfknbqn QcopoquKOSPQUTCYTPC1492-02-50 08:24:0086[facility] Yonis TBAQIZWLYZFG0327-88-85 08:24:006[facility]orial KmlicytIPQIGZLKGY5486-28-64 08:24:00 11.6[facility]orial RjdnpwoDOFEOOSXCW4128-42-66 08:24:003.78[facility] HermannHEMATOLOGY 2019-01-26 08:24:0013.3[facility]orial SkutfpdCRTQAIMRNT3035-10-51 08:24:0034.0[facility]orial BnamhjdEKBLTZNSMR2736-03-87 08:24:006.3[facility] ObmagxlSKYEHSMHRL8800-65-51 08:24:00 Test Item Value Reference Range Interpretation Comments MCH (test code = MCH) 30.7 pg 27.0-31.0 Memorial TdwvuviANSEDIRFWS6758-20-18 08:24:0090.3[facility] HermannHEMATOLOGY 2019-01-26 08:24:0034.2[facility] ScltfkzPMMSMDCRIB7082-69-31 08:24:31184Phmcvoal CwipoydEMWKGWMZMF8056-71-11 08:24:007.5[facility]orial ZjzzcelKIHGOKZMIBDX8892-21-94 08:24:008.6[facility]orial QvokvsjQTEGBLXNIJBO1693-60-52 08:24:22994Ttzcxeux Bertha VOQQTROBHZYX3279-73-32 08:24:0027[facility] YofywknETCCBBFYFEGE5841-92-96 08:24:00 139[facility] BqmozebRAUPYUKZHMHH1307-59-84 08:24:003.6[facility]orial Yonis AVEGRJESCZWT8960-83-73 08:24:000.70Memorial BkrsuwaPJCAKRYLYGJO8217-51-39 08:24:008.4Memorial EtfjxhfWAXDOGZHVQJE4050-46-77 08:24:80524Ulccxlxz Yonis XHAKBFCPOJAC3340-54-95 08:24:0086[facility]orial QvsfugcXRFLOPYHWNUW9991-30-73 08:24:00 6[facility]orial CtbnyyxPORRCFYQFG8603-52-13 08:24:0011.6[facility] HermannHEMATOLOGY 2019-01-26 08:24:003.78[facility]orial NxqugjjDVKCZRISBN7650-48-89 08:24:0013.3[facility]orial MigybfeGSLCDSFYUE5828-75-61 08:24:0034.0[facility]orial PzqqcilMIMJYSZYSW9428-06-44 08:24:006.3[facility]orial ZbmqpjcNOTPGMWBZL5639-58-12 08:24:00 Test Item Value Reference Range Interpretation Comments MCH (test code = MCH) 30.7 pg 27.0-31.0 Memorial AhdmyqqAZPDAVVRYW4817-29-94 08:24:0090.3[facility] HermannHEMATOLOGY 2019-01-26 08:24:0034.2[facility]orial QrvfsvkLVHPSHCZQX1699-80-73 08:24:67754Lhbsufbi GqwzgrqWDDHSSPKKO3743-82-71 08:24:007.5[facility] HermannCHEM NWOJT5212-88-27 09:14:45691Qeboamdx HermannCHEM NQJRF4316-52-10 09:14:008.5[facility] HermannCHEM ASNUA9769-38-29 09:14:0013.3[facility] HermannCHEM ZHBND7515-25-20 09:14:0024 [facility] HermannCHEM ZHMRW4937-34-19 09:14:24756Qkeokagj HermannCHEM PANEL 2019-01-25 09:14:0081[facility] HermannCHEM OLPHZ3937-82-80 09:14:002[facility] HermannCHEM IEJSP7930-89-19 09:14:003.3[facility] HermannCHEM GNQBJ7426-80-59 09:14:000.60[facility] HermannCHEM EUHIY8406-05-84 09:14:97406Qrmupklq HermannCHEM DATYF6791-70-60 09:14:90693Dnengoqj HermannCHEM ALDGA1686-84-13 09:14:008.5 [facility] HermannCHEM WXLVN0543-95-56 09:14:0013.3[facility] HermannCHEM PANEL 2019-01-25 09:14:0024Mem[facility] HermannCHEM XWOSR0212-73-25 09:14:04838Ifnopdeu HermannCHEM LPBLS5071-10-94 09:14:0081[facility] HermannCHEM CCFFQ0110-17-06 09:14:002[facility] HermannCHEM LMQOH1832-71-25 09:14:003.3[facility] HermannCHEM FQNEZ6680-82-79 09:14:000.60[facility] HermannCHEM KPAXQ2102-27-42 09:14:43226 [facility] HermannMOLECULAR UHYDXZDCWD9896-40-86 16:22:00Negative (01/23/19 11:22 AM)[facility] HermannMOLECULAR UPAOIJFVET8270-97-66 16:22:00Negative (01/23/19 11:22 AM)[facility] HermannCHEM IJVDJ7404-50-32 15:42:002.76[facility] HermannCHEM PANEL 2019-01-23 15:42:002.76[facility] HermannCHEM UUDFO5742-02-42 12:32:000.9[facility] HermannCHEM CYYPM2318-52-62 12:32:000.9[facility] HermannCHEM KWNIP8952-68-49 10:50:002.0[facility] HermannCHEM TEKVO0870-87-51 10:50:16365Plozyeid HermannCHEM OJEQQ6909-09-26 10:50:0023[facility] HermannCHEM HMWQM5401-19-09 10:50:12166 [facility] HermannCHEM NVQMM7691-56-53 10:50:003.1[facility] HermannCHEM PANEL 2019-01-23 10:50:06241Lakdaziy HermannCHEM FKEAD5741-29-16 10:50:005[facility] HermannCHEM YOMZK7561-16-37 10:50:000.50[facility] HermannCHEM TRFYL5481-57-77 10:50:007.8[facility] HermannCHEM ZTNIT6177-54-29 10:50:0083[facility] HermannCHEM IIUHV5220-98-27 10:50:0010.1[facility]orial WzvehtbCAAFMQKWVL0843-13-90 10:50:000.2 Memorial KuqhrgnSHPVTZDWHD8619-49-85 10:50:000.8[facility] HermannHEMATOLOGY 2019-01-23 10:50:005.5[facility]orial NmdurffOQLPVNMKTD9338-72-00 10:50:002.2[facility]orial NttqybmXBGQYGMDBD1406-96-69 10:50:000.1[facility]orial TiukvxkWVJLTEEEVY3230-35-42 10:50:0063.6[facility]orial DzzdwcgHSFSGIBWRX2034-29-84 10:50:008.9[facility] Yonis GIKMOVXCWZ9379-18-15 10:50:002.3Memorial MrlqdkiMBUMKJGWKY8321-20-82 10:50:00 Normal (01/23/19 5:50 AM)[facility]orial FngbjpiZGDTXPLYLC4228-13-46 10:50:00Normal (01/23/19 5:50 AM)[facility]orial FuyrzegXLNIIHUZGU7446-88-97 10:50:0025.1[facility]orial HuufrbmJETRKVVSGN7865-33-23 10:50:0013.1Memorial CvjpkdyRTPILEDKIT1142-56-43 10:50:85308Tukhgjeg DevcyxkFEXJBAUYRK8765-14-88 10:50:007.7[facility] Yonis DVLVBRWJXY6789-81-07 10:50:008.6[facility]orial IaifojrCAFKWDDUNJ4197-78-62 10:50:00 10.0Memorial JzpxuzrJVTCDIUXXS1042-02-96 10:50:0034.6[facility] HermannHEMATOLOGY 2019-01-23 10:50:0028.7Memorial XvdgtsyYDAXHDFNEX9157-56-50 10:50:0087.8[facility]orial VvwvhfjYSAWEIPKNS8015-73-92 10:50:00 Test Item Value Reference Range Interpretation Comments MCH (test code = MCH) 30.4 pg 27.0-31.0 Memorial MlmvnsdNVYVGZMRDO3138-94-61 10:50:003.27[facility] HermannCHEM PANEL 2019-01-23 10:50:002.0[facility] HermannCHEM NFIHN6752-43-35 10:50:92371Axzkqdtl HermannCHEM JCXRB4978-04-75 10:50:0023[facility] HermannCHEM ZLNQS0084-48-38 10:50:21773Nvfhqeyv HermannCHEM DBTUK3339-19-98 10:50:003.1[facility] HermannCHEM TSYNT1172-93-44 10:50:91722Seslwumb HermannCHEM DHFKW8655-68-74 10:50:005 [facility] HermannCHEM DDQJC1191-58-77 10:50:000.50[facility] HermannCHEM PANEL 2019-01-23 10:50:007.8[facility] HermannCHEM CNJLY9756-89-54 10:50:0083[facility] HermannCHEM EBGIP9005-29-98 10:50:0010.1[facility]orial KclafhmQXIBWHVGRK0817-80-01 10:50:000.2[facility] TosbfdeWGWIESBLLM2256-18-60 10:50:000.8[facility] Yonis SZXOOGZKTL6520-31-22 10:50:005.5[facility] SzstvypLQKEOIMWTU5551-81-65 10:50:002.2 Memorial AnsrinqJJFVFKMQFA2641-42-79 10:50:000.1[facility] HermannHEMATOLOGY 2019-01-23 10:50:0063.6[facility] YxxhsffCFHZNOGRXS5228-12-57 10:50:008.9[facility] PnxxomoSJJWFVAAKR8097-86-92 10:50:002.3[facility]orial LrwjijgYSVIAXGHTJ5705-25-16 10:50:00Normal (01/23/19 5:50 AM)[facility] IvewanwOSLYTDFEGS4482-74-69 10:50:00 Normal (01/23/19 5:50 AM)[facility] NyzdydmOYEGPYKQFL5153-33-98 10:50:0025.1[facility] CqniwztTQRXDLIGMI9429-99-87 10:50:0013.1[facility] FyphbrqOOOBAKWNIO2060-80-64 10:50:84212Tpmyquwa VdzdxezNXSGSBVLRX7726-92-58 10:50:007.7[facility] Bertha TQNOCUANDU2789-77-56 10:50:008.6[facility] BftyhsaSRSCELVYQC1767-36-26 10:50:00 10.0[facility] PehncjdOYQWXILBCO7186-96-57 10:50:0034.6[facility] HermannHEMATOLOGY 2019-01-23 10:50:0028.7[facility] SfogrnoUWMKVUDNHZ5277-73-02 10:50:0087.8[facility] QtzczjdFDBGDHZCZN2230-83-77 10:50:00 Test Item Value Reference Range Interpretation Comments MCH (test code = MCH) 30.4 pg 27.0-31.0 Memorial RgwmkmyHLVJOHCQYA9469-33-60 10:50:003.27[facility] HermannCHEM PANEL 2019-01-22 11:32:002.4[facility] HermannCHEM OFGJD3494-07-42 11:32:002.4[facility] HermannCHEM BTVSK3970-76-96 09:04:003.0[facility] HermannCHEM RZJDY0852-22-40 09:04:003.0[facility] HermannURINE AND OUYDB3535-41-51 07:14:00<1[facility] HermannURINE AND NBINR8995-88-04 07:14:0025[facility] HermannURINE AND STOOL 2019-01-22 07:14:002[facility] HermannURINE AND IXTCD1416-33-18 07:14:00Light Yellow *NA*(01/22/19 2:14 AM)[facility]annURINE AND NMCQI2910-22-02 07:14:00 Clear (01/22/19 2:14 AM)[facility] [id number] 07:14:00 Test Item Value Reference Range Interpretation Comments UA Spec Grav (test code = UA Spec 1.014 1 Grav) [facility] [id number] 07:14:00 Test Item Value Reference Range Interpretation Comments UA pH (test code = UA pH) 6.0 1 5.0-8.0 [facility] [id number] 07:14:00Negative (01/22/19 2:14 AM) [facility] [id number] 07:14:00Negative *NA*(01/22/19 2:14 AM) [facility] [id number] 07:14:00Negative *NA*(01/22/19 2:14 AM) [facility] [id number] 07:14:00Negative *NA*(01/22/19 2:14 AM) [facility] [id number] 07:14:00Negative (01/22/19 2:14 AM) [facility] [id number] 07:14:00Negative (01/22/19 2:14 AM) [facility] [id number] 07:14:00Negative (01/22/19 2:14 AM) [facility] [id number] 07:14:00<1[facility] [id number] 07:14:0025[facility] [id number] 07:14:002 [facility] [id number] 07:14:00Light Yellow *NA*(01/22/19 2:14 AM)[facility] [id number] 07:14:00Clear (01/22/19 2:14 AM) [facility] [id number] 07:14:00 Test Item Value Reference Range Interpretation Comments UA Spec Grav (test code = UA Spec 1.014 1 Grav) [facility] [id number] 07:14:00 Test Item Value Reference Range Interpretation Comments UA pH (test code = UA pH) 6.0 1 5.0-8.0 [facility] [id number] 07:14:00Negative (01/22/19 2:14 AM) [facility] [id number] 07:14:00Negative *NA*(01/22/19 2:14 AM) [facility] [id number] 07:14:00Negative *NA*(01/22/19 2:14 AM) [facility] [id number] 07:14:00Negative *NA*(01/22/19 2:14 AM) [facility] [id number] 07:14:00Negative (01/22/19 2:14 AM) [facility] [id number] 07:14:00Negative (01/22/19 2:14 AM) [facility] [id number] 07:14:00Negative (01/22/19 2:14 AM) [facility] [id number] 05:16:000.90[facility] [id number] 05:16:000.90[facility] [id number] 05:01:00Negative (01/22/19 12:01 AM)[facility] GVDGLXB2178-99-13 05:01:00<0.02 [facility] MAEQARC2648-96-01 05:01:0049[facility]annCHE[facility] PANEL 2019-01-22 05:01:000.6[facility]CHE[facility] XFAYN2707-60-97 05:01:21632Mrkjtnnp HermannCHEM SNIXI4808-79-68 05:01:004.0[facility]annCHE[facility] DXPYF7980-59-88 05:01:0017[facility]CHE[facility] XDRXC2362-42-15 05:01:0025[facility]annCHE[facility] VAJNY0986-59-12 05:01:008.1[facility]annCHE[facility] HDHMF2842-09-01 05:01:00 Test Item Value Reference Range Interpretation Comments B/C Ratio (test code = B/C Ratio) 20 1 6-25 [facility] XLEGD8171-44-00 05:01:00 Test Item Value Reference Range Interpretation Comments A/G Ratio (test code = A/G Ratio) 1.0 1 0.7-1.6 [facility] MUBME7998-70-73 05:01:004.1[facility]annCHEM PANEL 2019-01-22 05:01:006.90[facility] UftfwbxIHOQZWLIVCZKM7706-22-99 05:01:00Negative *NA*(01/22/19 12:01 AM)[facility] IwhmltvRPGTNKBGEJ0569-80-13 05:01:000.1[facility] ZbcvvfqEFGGZEMNIB5799-86-75 05:01:000.7[facility] IvkxjteCTBQXCRKNF1035-10-56 05:01:000.0[facility] EhgvacxXFLRJQPTXP4700-36-16 05:01:000.0[facility] LFXLABMFHS8380-10-36 05:01:000.9[facility] FopfqlkZSMWSSMNNY4143-12-20 05:01:008.6 [facility] JrysxomDZJCCTTSGH4207-46-29 05:01:000.6[facility]annHEMATOLOGY 2019-01-22 05:01:0086.5[facility] AvhfamrONONDKCKPD1184-45-21 05:01:005.7[facility] BnzuxbaYVQPRFDSSD5248-39-51 05:01:006.9[facility] XsafjegAEGNXCNORU8421-07-68 05:01:009.9[facility] YrxkhsoZORQTUDXWV8065-08-86 05:01:0032.8[facility] QTGOODODYX3818-12-49 05:01:0013.6[facility] IazcynoTXVUDQCAKM4383-01-85 05:01:00 443[facility] KotgvprPCPZQYUPUF3422-60-63 05:01:007.3[facility]annHEMATOLOGY 2019-01-22 05:01:0014.0[facility] ZnvowwfWBSQWXIVCU5497-29-55 05:01:004.85[facility] MrwsbkdZSNQBPJGBP7728-62-40 05:01:0042.7[facility] DjdkqzjXCIKLQOYGR6918-83-19 05:01:00 Test Item Value Reference Range Interpretation Comments MCH (test code = MCH) 29.0 pg 27.0-31.0 [facility] JrrgaywBDTIPIVCGS8029-26-00 05:01:0088.2[facility]annHEMATOLOGY 2019-01-22 05:01:00 Test Item Value Reference Range Interpretation Comments INR (test code = INR) 0.96 1 0.85-1.17 [facility] VtrcynlHHTQFGEWHP8559-74-35 05:01:00 Test Item Value Reference Range Interpretation Comments PT (test code = PT) 12.6 s 12.0-14.7 [facility]WLAMNYFRVX6669-29-45 05:01:00 Test Item Value Reference Range Interpretation Comments PTT (test code = PTT) 25.9 s 22.9-35.8 [facility] RCDFHAA8444-84-67 05:01:00Negative (01/22/19 12:01 AM) [facility] KNHIYND9968-53-61 05:01:00<0.02[facility] CARDIAC LUPLXHZ1853-71-87 05:01:0049[facility]annCHEM HLMUE9727-33-79 05:01:000.6[facility]annCHEM YRXZJ6890-09-69 05:01:32059Fjcggiws HermannCHEM XNZDE9087-90-97 05:01:004.0[facility]annCHEM PZRRX7798-20-59 05:01:0017 [facility]annCHE[facility] DBZFU0430-87-10 05:01:0025[facility]annCHEM PANEL 2019-01-22 05:01:008.1[facility]annCHEM AQARM8640-90-61 05:01:00 Test Item Value Reference Range Interpretation Comments B/C Ratio (test code = B/C Ratio) 20 1 6-25 [facility]CHE[facility] OXNLV5238-90-86 05:01:00 Test Item Value Reference Range Interpretation Comments A/G Ratio (test code = A/G Ratio) 1.0 1 0.7-1.6 [facility]CHE[facility] SZKOD2671-42-78 05:01:004.1[facility]annCHEM PANEL 2019-01-22 05:01:006.90[facility] XiwztwcXPMBRCLQOBSFW7490-15-13 05:01:00Negative *NA*(01/22/19 12:01 AM)[facility] FrsziovAZCHWPOYBT5425-22-26 05:01:000.1[facility] ImebiiyIEYZGTEYRS6550-51-65 05:01:000.7[facility] OquilvvSPYDRPFQEB1108-22-57 05:01:000.0[facility] MdgngssYZVSIEPMBY4896-05-19 05:01:000.0[facility] HZCHKGQJOG5251-70-20 05:01:000.9[facility] IbvaidbFKANODAHSY3967-32-17 05:01:008.6 [facility] GdpwhomJMOFTIONFF1447-59-77 05:01:000.6[facility]annHEMATOLOGY 2019-01-22 05:01:0086.5[facility] UjbvcjhTACKGTWYZP4758-33-16 05:01:005.7[facility] DprielmWUAMKBVIZX9637-09-49 05:01:006.9[facility] GkmbyqlIWSJJNNCLT8941-34-21 05:01:009.9[facility] ElgspixHZXIWLTAPT6953-25-24 05:01:0032.8[facility] JBBCRKBSVL9430-66-43 05:01:0013.6[facility] RksmuxcEVFTWJVOFI3482-07-65 05:01:00 443[facility] CjckewwCNHOQYMNEJ5684-04-76 05:01:007.3[facility]annHEMATOLOGY 2019-01-22 05:01:0014.0[facility] EudrkclMGNGVIVUAN1867-08-12 05:01:004.85[facility] PpwtowlRAEPYMTJJK8218-94-60 05:01:0042.7[facility] VnsfgdzQJVEHMJDOQ2818-40-68 05:01:00 Test Item Value Reference Range Interpretation Comments MCH (test code = MCH) 29.0 pg 27.0-31.0 [facility]YvnefnjYYUPMMRGPR6792-92-86 05:01:0088.2[facility]annHEMATOLOGY 2019-01-22 05:01:00 Test Item Value Reference Range Interpretation Comments INR (test code = INR) 0.96 1 0.85-1.17 [facility]zlmmyhEPMLFACHWV4330-22-51 05:01:00 Test Item Value Reference Range Interpretation Comments PT (test code = PT) 12.6 s 12.0-14.7 [facility]XIYKLAM2661[facility]-63 05:01:00 Test Item Value Reference Range Interpretation Comments PTT (test code = PTT) 25.9 s 22.9-35.8 [facility]EqakekuVGZ1G6712-00-61 14:36:00 Test Item Value Reference Range Interpretation [...] 0.00-0.01 N code = ETOHU) Comprehensive Metabolic Lxjhf6475-28-45 14:36:00 Test Item Value Reference Range Interpretation [...] the [employer],http :[email or web address] ep.nih.gov Urinalysis Osmsmqlk6520-44-39 14:32:00 Test Item Value Reference Range Interpretation Comments Color (test code = COLOR) Yellow Yellow,Straw,Pl N yellow Clarity (test code = Clear Clear N CLAR) Specific [place] (test 1.024 1.001-1.035 N code = SPGR) [...] code = Few /HPF BACT) CBC with Haxzdujndvwz4585-27-29 14:21:00 Test Item Value Reference Range Interpretation [...] code = ALYMPH) 3.0 K/cumm 0.5-4.6 [place] Abs (test code = AMONO) 0.5 K/cumm 0.0-1.2 N Eos Abs (test code = AEOS) 0.19 K/cumm 0.00-0.74 N Baso Abs (test code = ABASO) 0.1 K/cumm 0.00-0.21 N
== END 2021-08-28 05:48 | disposition home or self-care (01) ==
LOC: ER 02:01
DX: N39.0 Urinary tract infection, site not specified (principal); F19.10 Other psychoactive substance abuse, uncomplicated; F31.9 Bipolar disorder, unspecified; Z98.82 Breast implant status; Z88.5 Allergy status to narcotic agent; Z88.8 Allergy status to other drugs, medicaments and biological substances
CPT/HCPCS: 93005; 87088; 85025; 87086; 80048; 36415; 83735; 85610; 82565; 80076; 81015; 84484; 83880; 80307; 70450; 70496; 70498; 71045; 51702; 99284; Q9967; J7030

== ENCOUNTER 2021-08-29 06:13 | Emergency (ER) | payer OTHER ==
[2021-08-29 07:29] LABS: Absolute Lymphocytes (CBC) 2.4 K/uL (0.7-4.9); Basophils % 0.8 % (0-1.3); Hematocrit 39.5 % (36.0-45.0); Lymphocytes % 19.4 % (15.3-44.8); RBC Red Blood Cell Count 4.59 M/uL (3.86-4.86)
[2021-08-29 07:42] LABS: BUN Blood Urea Nitrogen 6 mg/dL (7-18); Bicarbonate 22 mmol/L (21-32); Glucose Level 131 mg/dL (74-106); Potassium 3.3 mmol/L (3.5-5.1); Sodium Level 145 mmol/L (136-145)
[2021-08-29 08:14] LABS: ALT/SGPT 22 U/L (12-78); AST/SGOT 15 U/L (15-37); Albumin 3.7 g/dL (3.4-5.0); Alkaline Phosphatase 85 U/L (45-117); Bilirubin Direct 0.1 mg/dL (0-0.2); Bilirubin Total 0.4 mg/dL (0.2-1.0); NT PRO-BNP 157 pg/mL (<125); Protein, Total 7.4 g/dL (6.4-8.2); Troponin (Emerg Dept Use Only) < 0.02 ng/mL (0.0-0.045)
--- NOTE | 2021-08-29 08:45 | EDPHYS ---
Physician Documentation [facility] Name: Tiffany Quinn Age: 51 yrs Sex: Female : 1970 Arrival Date: 08/29/2021 Time: 06:19 Bed 5 Private MD: ED Physician Bill Palm HPI: 08/29 06:38 This 51 yrs old Female presents to ER via EMS with complaints of pm1 Hallucinations. 06:38 The patient's problem is reported as Hallucinations. Onset: The symptoms/episode pm1 began/occurred today, with the use of methamphetamines at 0530 today. Context: occurred at home, Possible contributing factors include: Patient is known to have used drugs: Methamphetamines. The symptoms are alleviated by nothing. The symptoms are aggravated by Drug use. Associated signs and symptoms: Pertinent positives: chest pain, Pertinent negatives: abdominal pain, dizziness, headache, nausea, numbness, shortness of breath, tingling, vomiting. Severity of symptoms: in the emergency department the symptoms are unchanged. The patient has experienced similar episodes in the past, multiple times, Patient was seen in the ER the past two days for similar complaints. The patient has been recently seen at the [facility] Emergency Department. 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 - Social history:: Smoking status: Patient denies any tobacco usage or history of. Patient uses street drugs, Methamphetamine (Meth) Patient/guardian denies using alcohol, but has a distant history of alcohol abuse. ROS: 06:38 Constitutional: Negative for fever, chills, and weight loss, Cardiovascular: Negative pm1 for chest pain, palpitations, and edema, Respiratory: Negative for shortness of breath, cough, wheezing, and pleuritic chest pain, Abdomen/GI: Negative for abdominal pain, nausea, vomiting, diarrhea, and constipation, Back: Negative for injury and pain, MS/Extremity: Negative for injury and deformity, Skin: Negative for injury, rash, and discoloration. 06:38 All other systems are negative. Exam: 06:38 Constitutional: This is a well developed, well nourished patient who is awake, alert, pm1 and in no acute distress. Head/Face: Normocephalic, atraumatic. 06:38 Skin: Warm, dry with normal turgor. Normal color with no rashes, no lesions, and no evidence of cellulitis. MS/ Extremity: Pulses equal, no cyanosis. Neurovascular intact. Full, normal range of motion. 06:38 Cardiovascular: Exam negative for acute changes, Rate: normal, Rhythm: Pulses: no pulse deficits are appreciated, Edema: is not appreciated. 06:38 Respiratory: Exam negative for acute changes, respiratory distress, shortness of breath, Breath sounds: are clear throughout. 06:38 Abdomen/GI: Exam negative for acute changes, Inspection: abdomen appears normal, Palpation: abdomen is soft and non-tender. 06:38 Neuro: Exam negative for acute changes, Orientation: is normal, Motor: is normal, moves all fours, strength is normal, strength is 5/5 in all extremities, Sensation: is normal, no obvious gross deficits, Gait: is steady, at a normal pace, without difficulty. 06:38 Psych: Behavior/mood is cooperative, Affect is animated, Oriented to person, place, time, Patient has no thoughts/intents to harm self or others. 06:38 Radiologist reports: CT brain and CT angio head and neck reviewed from yesterday. No pm1 acute findings Vital Signs: 06:25 BP 159 / 109; Pulse 117; Resp 22; Temp 98.3; Pulse Ox 99% ; Weight 84.82 kg; Height 5 lh3 ft. 2 in. (157.48 cm); 07:06 BP 166 / 108; Pulse 103; Resp 20; Pulse Ox 99% on R/A; bp 08:17 BP 167 / 89; Pulse 99; Resp 15; Pulse Ox 97% on R/A; bp 08:53 BP 167 / 89; Pulse 97; Resp 16; Temp 98; Pulse Ox 98% ; bp 06:25 Body Mass Index 34.20 (84.82 kg, 157.48 cm) lh3 MDM: 06:20 Patient medically screened. pm1 08:42 Data reviewed: vital signs. Data interpreted: Pulse oximetry: on room air is 97 %. pm1 Interpretation: normal. Counseling: I had a detailed discussion with the patient and/or guardian regarding: the historical points, exam findings, and any diagnostic results supporting the discharge/admit diagnosis, lab results, radiology results, the need for outpatient follow up, a family practitioner, drug rehabilitation, to return to the emergency department if symptoms worsen or persist or if there are any questions or concerns that arise at home. 08/29 06:34 Order name: [place] pm1 08/29 06:34 Order name: CBC with Diff pm1 08/29 06:34 Order name: BMP pm1 08/29 06:35 Order name: [place]; Complete Time: 08:38 EDMS 08/29 06:35 Order name: CBC with Automated Diff; Complete Time: 07:42 EDMS 08/29 06:35 Order name: Basic Metabolic Panel; Complete Time: 07:42 EDMS 08/29 06:39 Order name: LFT's pm1 08/29 06:39 Order name: Magnesium pm1 08/29 06:39 Order name: NT PRO-BNP pm1 08/29 06:39 Order name: PT-INR pm1 08/29 06:39 Order name: Troponin (emerg Dept Use Only) pm1 08/29 06:40 Order name: Liver (Hepatic) Function; Complete Time: 08:32 EDMS 08/29 06:40 Order name: Magnesium; Complete Time: 08:32 EDMS 08/29 06:40 Order name: NT PRO-BNP; Complete Time: 08:32 EDMS 08/29 06:34 Order name: IV Saline Lock; Complete Time: 07:18 pm1 08/29 06:39 Order name: XRAY Chest (1 view) pm1 08/29 06:39 Order name: EKG; Complete Time: 06:40 pm1 08/29 06:39 Order name: Cardiac monitoring; Complete Time: 07:03 pm1 08/29 06:39 Order name: EKG - Nurse/Tech; Complete Time: 07:03 pm1 08/29 06:39 Order name: Labs collected and sent; Complete Time: 07:03 pm1 08/29 06:39 Order name: O2 Per Protocol; Complete Time: 07:03 pm1 08/29 06:39 Order name: O2 Sat Monitoring; Complete Time: 07:03 pm1 08/29 06:40 Order name: Troponin (Emerg Dept Use Only); Complete Time: 08:32 EDMS 08/29 06:40 Order name: Protime (+INR); Complete Time: 07:42 EDMS Administered Medications: 07:10 Drug: NS 0.9% 1000 ml Route: IV; Rate: 1000 ml; Site: right wrist; bp 08:54 Follow up: IV Status: Completed infusion; IV Intake: 1000ml bp Disposition: 11:22 Co-signature as Attending Physician, Bill Palm MD I agree with the assessment and jo plan of care. Disposition Summary: 08/29/21 08:44 Discharge Ordered Location: Home pm1 Problem: new pm1 Symptoms: have improved pm1 Condition: Stable pm1 Diagnosis - Other stimulant abuse - methamphetamine abuse pm1 - Chest pain, unspecified pm1 Followup: pm1 - With: Emergency Department - When: As needed - Reason: Worsening of condition Followup: pm1 - With: Private Physician - When: 2 - 3 days - Reason: Recheck today's complaints, Continuance of care, Re-evaluation by your physician Discharge Instructions: - Discharge Summary Sheet pm1 - Nonspecific Chest Pain, Adult pm1 - Methamphetamines Use Disorder pm1 - Illegal Drug Use Information, Adult pm1 Forms: - Medication Reconciliation Form pm1 - Thank You Letter pm1 - Antibiotic Education pm1 - Prescription Opioid Use pm1 Signatures: Dispatcher [employer] EDMS Bill Palm MD MD cha Marinas, Patrick, PATRICK ELECTRIFICATION ADVISER pm1 Armani Devries, RN RN Iraida Rockwell RN RN lh3
--- NOTE | 2021-08-29 08:45 | ER ---
Nurse's Notes [facility] Name: Tiffany Quinn Age: 51 yrs Sex: Female : 1970 Arrival Date: 08/29/2021 Time: 06:19 Bed 5 Private MD: Diagnosis: Other stimulant abuse-methamphetamine abuse;Chest pain, unspecified Presentation: 08/29 06:25 Chief complaint: Patient states: that she is having left sided chest pain and it feels lh3 like at tightness. Pt also C/O headache. Pt also states, I did 6 or 7$ worth of Meth this morning, but I didn't do any yesterday.". Coronavirus screen: Vaccine status: Patient reports receiving the 2nd dose of the covid vaccine. Date February 2021. Ebola Screen: Patient negative for fever greater than or equal to 101.5 degrees Fahrenheit, and additional compatible Ebola Virus Disease symptoms Patient denies exposure to infectious person. Patient denies travel to an Ebola-affected area in the 21 days before illness onset. No symptoms or risks identified at this time. Initial Sepsis Screen: Does the patient meet any 2 criteria? No. Patient's initial sepsis screen is negative. Does the patient have a suspected source of infection? No. Patient's initial sepsis screen is negative. Risk Assessment: Do you want to hurt yourself or someone else? Patient reports no desire to harm self or others. Onset of symptoms was August 29, 2021. 06:25 Method Of Arrival: EMS 3 06:25 Acuity: MANUEL 2 lh3 Triage Assessment: 06:27 General: Appears in no apparent distress. Behavior is calm, cooperative, appropriate lh3 for age, talkative. Pain: Complains of pain in chest. 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 - Social history:: Smoking status: Patient denies any tobacco usage or history of. Patient uses street drugs, Methamphetamine (Meth) Patient/guardian denies using alcohol, but has a distant history of alcohol abuse. Screenin:29 Abuse screen: Denies threats or abuse. Denies injuries from another. Nutritional lh3 screening: No deficits noted. Tuberculosis screening: No symptoms or risk factors identified. Fall Risk None identified. Assessment: 06:29 General: Appears in no apparent distress. Behavior is calm, cooperative, appropriate 3 for age, talkative. 07:07 Reassessment: RECD REPORT FROM SAMARA BENITO. 51YO WF P/W METH INGESTION AND AGITATION, H/O bp SAME FREQUENTLY. Vital Signs: 06:25 BP 159 / 109; Pulse 117; Resp 22; Temp 98.3; Pulse Ox 99% ; Weight 84.82 kg; Height 5 3 ft. 2 in. (157.48 cm); 07:06 BP 166 / 108; Pulse 103; Resp 20; Pulse Ox 99% on R/A; bp 08:17 BP 167 / 89; Pulse 99; Resp 15; Pulse Ox 97% on R/A; bp 08:53 BP 167 / 89; Pulse 97; Resp 16; Temp 98; Pulse Ox 98% ; bp 06:25 Body Mass Index 34.20 (84.82 kg, 157.48 cm) 3 ED Course: 06:19 Patient arrived in ED. eb 06:19 Venkatesh Funez NP is PHCP. pm1 06:19 Bill Palm MD is Attending Physician. pm1 06:27 Triage completed. 3 06:27 Arm band placed on right wrist. 3 06:29 Patient has correct armband on for positive identification. Placed in gown. Bed in low lh3 position. Call light in reach. Side rails up X 1. Door closed. Warm blanket given. Verbal reassurance given. 06:29 No provider procedures requiring assistance completed. lh3 07:05 Armani Devries, JIGNA is Primary Nurse. bp 07:08 Inserted saline lock: 24 gauge in left wrist, using aseptic technique. Blood collected. bp 08:04 [place] Sent. bp 08:04 CBC with Diff Sent. bp 08:04 BMP Sent. bp 08:04 [place] Sent. bp 08:04 Troponin (emerg Dept Use Only) Sent. bp 08:04 PT-INR Sent. bp 08:04 NT PRO-BNP Sent. bp 08:04 Magnesium Sent. bp 08:05 LFT's Sent. bp 08:28 XRAY Chest (1 view) In Process Unspecified. EDMS 08:53 IV discontinued, intact, bleeding controlled, No redness/swelling at site. Pressure bp dressing applied. Administered Medications: 07:10 Drug: NS 0.9% 1000 ml Route: IV; Rate: 1000 ml; Site: right wrist; bp 08:54 Follow up: IV Status: Completed infusion; IV Intake: 1000ml bp Intake: 08:54 IV: 1000ml; Total: 1000ml. bp Outcome: 08:44 Discharge ordered by MD. pm1 08:53 Discharged to home ambulatory. bp 08:53 Condition: stable 08:53 Discharge instructions given to patient, Instructed on discharge instructions, follow up and referral plans. Demonstrated understanding of instructions, follow-up care. 08:55 Patient left the ED. bp Signatures: Dispatcher [employer] EDMS Venkatesh Funez NP NECK SKEWER pm1 Armani Devries, RN RN bp Kylee Zuniga Latisha RN RN lh3 Corrections: (The following items were deleted from the chart) 06:31 06:25 Chief complaint: Patient states: that she is having left sided chest pain and it lh3 feels like at tightness. Pt also C/O headache. lh3 07:14 07:06 BP 159 / 109; Pulse 105bpm; Resp 20bpm; Pulse Ox 99% RA; bp bp
--- NOTE | 2021-08-29 08:57 | RAD REPORT ---
EXAM DESCRIPTION: RAD - Chest Single View - 08/29/2021 8:28 am CLINICAL HISTORY: CHEST PAIN Chest pain. COMPARISON: Chest Single View dated 08/28/2021; Chest Single View dated 07/11/2021; Chest Single View dated 06/03/2021; Chest Single View dated 10/16/2019 FINDINGS: Portable technique limits examination quality. The lungs are grossly clear. The heart is normal in size. No displaced fractures. IMPRESSION: No acute intrathoracic process suspected.
[2021-08-29 09:09] VITALS: BP 167/89
[2021-08-29 09:11] VITALS: TEMP 98; O2SAT 98
--- NOTE | 2021-09-01 18:32 | EKG ---
Test Date: 2021-08-29 Test Time: 19:42:29 No Experience: CARLOS MEASUREMENT RESULTS: Intervals: Rate: 98 TX: 138 QRSD: 82 QT: 374 QTc: 477 [place]: P: 17 [place]: 138 QRS: -36 T: 7 INTERPRETIVE STATEMENTS: Normal sinus rhythm Left axis deviation RSR' or QR pattern in V1 suggests right ventricular conduction delay Minimal voltage criteria for LVH, may be normal variant Anterolateral infarct, age undetermined Abnormal ECG Compared to ECG 08/29/2021 19:41:16 No significant changes Electronically Signed On 09-01-21 18:24:26 METAL POURER by Tito Smiley
--- NOTE | 2021-09-01 18:34 | EKG ---
Test Date: 2021-08-29 Test Time: 06:48:16 Staking Engineer: ADDI MEASUREMENT RESULTS: Intervals: Rate: 114 CT: 126 QRSD: 74 QT: 340 QTc: 468 [place]: P: 24 CT: 126 QRS: -27 T: 27 INTERPRETIVE STATEMENTS: Sinus tachycardia Possible Inferior infarct, age undetermined Anteroseptal infarct, age undetermined Abnormal ECG Compared to ECG 08/28/2021 02:58:33 Myocardial infarct finding now present Fusion complex(es) no longer present Left-axis deviation no longer present Electronically Signed On 09-01-21 18:24:42 AGRICULTURIST by Tito Smiley
--- OUTSIDE RECORDS SUMMARY | 2021-09-06 12:12 | XMS REPORT | Continuity of Care Document ---
:1970 Author Organization [facility] t Address [address] [place] [address] Care Team Providers Name Role Phone UNKNOWN [...] oria 3 01:52:00 l LOW PB 00:00: [place] 00 Active 01/21/2019 [facility] INFECTIOUS Diagnosis Active 2019-02-06 Memoria GASTROENTE 330 08:58:00 l RITIS AND 00:00: [place] COLITIS INFECTIOUS 00 GASTROENTE RITIS AND COLITIS Active 01/21/2019 [facility] Irregular Irregular Disease Active Uni vers menstrual menstrual 8-15 ity of cycle cycle 00:00: [address] Skin Skin Disease Active Univers lesion lesion 8-15 ity of 00:00: [address] Psychiatri Psychiatri Disease Active U nivers c disorder c disorder 8-15 it y of 00:00: [address] Well woman Well woman Disease Active U kavita exam with exam with 8-15 ity of routine routine 00:00: [place] gynecologi gynecologi 00 Me dical nicky exam nicky exam Branch INFECTIOUS Diagnosis Active 2019-02-06 Memoria GASTROENTE 08:58:00 winifred WALTON AND Yonis COLITIS, INFECTIOUS GASTROENTE RITIS AND COLITIS, Active [facility] Allergies, Adverse Reactions, Alerts Allergy Allergy Status Severity Reaction(s) Onset Inactive Treating Comm ents Source Name Type Date Date Clinician NO KNOWN Drug Active Univers ALLERGIE Class ity of S [facility] Phenerga Phenerga Active Memori a n n l Yonis Social History Social Habit Start Date Stop Date Quantity Comments Source [facility] of C[facility] Tobacco Comment 2-3 cigs a day [facility] Exposure to Not sure [facility] SARS-CoV-2 [facility] (event) [place] Tobacco use and 2016-06-08 2016-06-08 [facility] y of exposure 00:00:00 00:00:00 [facility] Alcohol intake 2016-06-08 2016-06-08 Current University 00:00:00 00:00:00 non-drinker of [facility] alcohol (finding) Branch Smoking Status Start Date Stop Date Source Social History 2019-01-22 05:00:12 [facility] Current some day smoker 2016-06-08 00:00:00 [facility] Medications Ordered Filled Start Stop Current Ordering Indication Dosage Frequency Signature Comments Components Source Medication Medication Date Date Medication? Clinician (SIG) Name Name ondansetron 2019-10 2020- No 4mg 4 mg, [facility] ers (ZOFRAN-ODT 2-05 05- Oral, ity of ) 15:15: 14:16 ONCE, 1 [place] disintegrat 00 :00 dose, Mon Med ical ing tablet 09/30/20 at [facility] 4 mg 0915, Routine ondansetron 2019-10 2020- No 4mg 4 mg, [facility] ers (ZOFRAN-ODT 2-05 05- Oral, ity of ) 14:30: 13:32 ONCE, 1 [place] disintegrat 00 :00 dose, Mon Med ical ing tablet 09/30/20 at [facility] 4 mg 0830, Routine ondansetron 2019-10 Yes [id number] 4mg Take 1 Univers 4 mg 2-07 tablet by ity of disintegrat 00:00: mouth [place] ing tablet 00 every 8 Medica l (eight) Branch hours as needed for Nausea and Vomiting (N/V). ciprofloxac 2019- Yes 500 mg = 1 Memoria in 500 mg 4-04 tab, PO, l oral tablet 17:35: [id number], X Yonis 00 4 day, # 8 tab, 0 Refill(s) Ondansetron 2018- Yes 4 mg = 1 Me moria 4 MG Oral 4-04 tab, PO, l Tablet 17:35: Q6H, PRN [place] [Zofran] 00 Nausea/Vom iting, # 20 tab, [...] 4-04 tab, PO, l oral tablet 17:35: [id number], X [place] 00 4 day, # 8 tab, 0 [...] s with feeding tube less than 14 Taiwanese (Dobhoff, J-tube etc) and pediatric and patients. [...] s with feeding tube less than 14 [place]ese (Dobhoff, J-tube etc) and pediatric and patients. [...] Memoria 4-01 Route: PO, l 22:00: QPM, [place] Dosing Weight 75, kg, Start date: 01/23/19 [...] Memori a 01-23 interfere l 15:00: w/enteral [place] 00 feedings - Take 1 hr before [...] PO, ONCE, l mEq oral 14:20: 0 [place] tablet, 00 Refill(s) extended release Metronidazo No 500 mg, Mem oria le 500 MG 4-01 PO, l Oral Tablet 14:20: ABXQ8H, 0 H ermann [Flagyl] 00 Refill(s) Ciprofloxac No 500 mg, Mem oria in 500 MG 4-01 PO, l Oral Tablet 14:20: CZIZ29B, 0 Yonis [Cipro] 00 Refill(s) potassium Yes 40 mEq, Memor ia chloride 20 4-01 PO, ONCE, l mEq oral 14:20: 0 [place] tablet, 00 Refill(s) extended release Metronidazo No 500 mg, Mem oria le 500 MG 4-01 PO, l Oral Tablet 14:20: ABXQ8H, 0 H ermann [Flagyl] 00 Refill(s) Ciprofloxac No 500 mg, Mem oria in 500 MG 4-01 PO, l Oral Tablet 14:20: UOPY25M, 0 Yonis [Cipro] 00 Refill(s) Potassium No Notes: Memori a Chloride 01-23 (Same as: l 14:17: K-Dur 20) [place] "Do Not Crush" Give with food and full glass of water For patients unable to swallow tablet, dissolve in one half glass of water. Allow about 2 minutes for the tablets to disintegra te. Stir before giving to prepare slurry and administer . Please exclude Patient s with feeding tube less than 14 Taiwanese (Dobhoff, J-tube etc) and pediatric and patients. [...] s with feeding tube less than 14 [place]ese (Dobhoff, J-tube etc) and pediatric and patients. [...] oria 3-31 to exceed l 15:03: 400mg/day. [place] (Same As: Ultram) normal No 1,000 mL, [...] 3-31 Route: IM, l 09:47: Drug form: [place] 00 PDR/INJ, PRN, Dosing Weight 75.994, kg, PRN Blood Glucose Results, Start date: 01/22/19 4:47:00 CDT, Duration: 30 day, Stop date: 02/21/19 4:46:00 CDT Dextrose 2019-0 No 12.5 gm, Memor ia 50% Syringe 3-31 25 mL, l 09:47: Route: [place] 00 IVP, Drug Form: INJ, Dosing Weight [...] Memoria 3-31 (Same as: l 08:56: Zofran) [place] 00 MEDICATION WASTE Product Size: 4 mg Product Wasted: ___ mg Zofran No Notes: Memoria 3-31 (Same as: l 08:56: Zofran) [place] 00 MEDICATION WASTE Product Size: 4 mg [...] moria IV 3-31 1,000 l 08:52: ml/hr, [place] 00 Infuse Over: 1 hr, Route: IV, [...] moria IV 3-31 1,000 l 05:44: ml/hr, [place] 00 Infuse Over: 1 hr, Route: IV, 1,000, Drug form: INJ, ONCE, Priority: STAT, Dosing Weight 75.994 kg, Start date: 01/22/19 0:44:00 CDT, Stop date: 01/22/19 0:44:00 CDT Zofran No Notes: Memoria 3-31 (Same as: l 04:52: Zofran) MEDICATION WASTE Product Size: 4 mg Product Wasted: ___ mg Saline No Notes: Memoria Flush 0.9% 3-31 Same as: l 04:52: BD [place] 00 Posiflush Sterile Zofran No Notes: Memoria [...] 14:00:00 126 mm[Hg] Univer sity of pressure [facility] Diastolic blood 2020-09-30 14:00:00 84 mm[Hg] Unive rsity of [facility] Heart rate 2020-09-30 14:00:00 79 /min Universi ty of [facility] Oxygen saturation in 2020-09-30 14:00:00 98 /min University of Arterial blood by [facility] Pulse oximetry Branch Body temperature 2020-09-30 13:26:00 37.22 Ruthann [facility] ersity of [facility] Respiratory rate 2020-09-30 13:26:00 16 /min Univ ersity of [facility] Body weight 2020-09-30 13:26:00 72.576 kg Universi ty of [facility] BMI 2020-09-30 13:26:00 28.80 kg/m2 Universi ty of [facility] Systolic blood 2020-09-30 14:00:00 126 mm[Hg] Univer sity of [facility] Diastolic blood 2020-09-30 14:00:00 84 mm[Hg] Unive rsity of [facility] Heart rate 2020-09-30 14:00:00 79 /min Universi ty of [facility] Branch Oxygen saturation in 2020-09-30 14:00:00 98 /min University of Arterial blood by [facility] Pulse oximetry Branch Body temperature 2020-09-30 13:26:00 37.22 Ruthann [facility] ersity of [facility] Branch Respiratory rate 2020-09-30 13:26:00 16 /min Univ ersity [facility] Body weight 2020-09-30 13:26:00 72.576 kg Universi ty of [facility] BMI 2020-09-30 13:26:00 28.80 kg/m2 Universi ty of [facility] Temperature Oral (F) 2019-01-28 01:16:00 98.6 F [facility] [place] Systolic (mm Hg) 2019-01-28 01:16:00 Estrada nadir [place] Diastolic (mm Hg) 2019-01-28 01:16:00 Mem orial [place] Heart Rate 2019-01-28 01:16:00 Memorial Yonis Respitory Rate 2019-01-28 01:16:00 Memori al [place] Systolic (mm Hg) 2019-01-27 20:42:00 Estrada rial [place] Diastolic (mm Hg) 2019-01-27 20:42:00 Mem orial Yonis Heart Rate 2019-01-27 20:42:00 Memorial Yonis Respitory Rate 2019-01-27 20:42:00 Memori al [place] Temperature Oral (F) 2019-01-27 20:42:00 98.5 F [facility] [place] Systolic (mm Hg) 2019-01-27 17:00:00 Estrada rial Yonis Diastolic (mm Hg) 2019-01-27 17:00:00 Mem orial [place] Temperature Oral (F) 2019-01-27 17:00:00 98.5 F [facility] [place] Heart Rate 2019-01-27 17:00:00 [facility] Y[place] Respitory Rate 2019-01-27 17:00:00 Memori al [place] Height 2019-01-22 14:35:00 157.48 cm Memorial Yonis BMI Calculated 2019-01-22 14:35:00 Memori al [place]is Weight 2019-01-22 14:35:00 [facility] [place] Weight 2019-01-22 04:34:00 [facility] [place] Procedures Procedure Date / Time Performed Performing Clinician Sourc e URINALYSIS 2020-09-30 13:27:00 Chuy Jackson o f [facility] ADC,CLC OR LCC ONLY - 2020-09-30 13:27:00 Chuy Jackson [facility] INFLUENZA A & B DIRECT Medical B ranch ANTIGEN COVID-19 (ID NOW RAPID 2020-09-30 13:27:00 Chuy Jackson [facility] TESTING) Medical Branch Encounters Start End Encounter Admission Attending Care Care Encounter Source Date/Time Date/Time Type Type Clinicians Facility Department ID 2019-01-22 Inpatient E [facility] MED [id number] [facility] W 04:39:00 2020-09-30 2020-09-30 Emergency DENIA Jackson [id number] 07:22:00 08:18:00 Chuy Jimenez [id number] [place] [id number] [place] [id number] 2020-09-30 2020-09-30 Emergency [facility] [id number] Univers 07:22:00 08:18:00 Chuy Jimenez [id number] i Alyssa [id number] [facility] [id number] [place] [id number] Branch 2020-09-30 2020-09-30 Emergency X [facility] ERT [id number] Univers 07:22:00 07:22:00 CHUY tubbs [facility] 2020-03-04 2020-03-14 Inpatient 3 [facility] PSY [id number] 15:38:00 15:25:00 [facility] 2019-01-22 2019-01-28 Inpatient [facility] [id number] Memoria 04:33:00 04:40:00 Yonis 00 l [facility] 2018-02-21 2018-02-20 Inpatient [facility] [id number] 14:48:00 13:18:00 [facility] Results Test Description Test Time Test Comments Results Result Comments Source ADC,CLC OR LCC ONLY - INFLUENZA A & B DIRECT ANTIGEN 2020-09 14:04:00 Test Item Value Reference Range Interpretation Comme nts Influenza A (test code = 62249-6) Negative Negative Influenza B (test code = 66592-0) Negative Negative Lab Interpretation (test code = 15393-2) Normal [facility]ID NOW RAPID TESTING)2020-09-30 14:03:00 Test Item Value Reference Range Interpretation Comments SARS-CoV-2 Rapid ID NOW Not Detected Not Detected (test code = 34703-1) PERRY (test code = PERRY) ID NOW COVID-19 Assay is an isothermal nucleic acid amplification test intended for the qualitative detection of nucleic acid from SARS-CoV-2 viral RNA in nasopharyngeal ([employer]) specimens. It is used under Emergency Use [...] indicated. Lab Interpretation Normal (test code = 04267-4) [facility]2020-[facility]-07 13:55:00 Test Item Value Reference Range Interpretation Comments APPEARANCE (test code = Hazy Clear A 3736771723) COLOR (test code = Yellow Yellow 4194268755) PH (test code = 4.8-8.0 7716330560) SP GRAVITY (test code = 1.003-1.030 7813732954) GLU U QUAL (test code = Normal Normal 6565165987) BLOOD (test code = Negative Negative 0767131771) KETONES (test code = 5 mg/dL Negative A 4125022417) PROTEIN (test code = Negative Negative 2887-8) UROBILIN (test code = 2.0 mg/dL Normal A 5679741701) BILIRUBIN (test code = Negative Negative 2319913769) NITRITE (test code = Negative Negative 7935955865) LEUK ROZINA (test code = 25/uL Negative A 9167997923) RBC/HPF (test code = See_Comment [Autom ated message] 8976108164) The system [employer] generated this result transmit ngozi reference range : 0 - 3 HPF. The refe rence range was not u sed to interpret th is result as normal/abnormal . WBC/HPF (test code = See_Comment [Autom ated message] 6502638185) The system [employer] generated this result transmit ngozi reference range : 0 - 5 HPF. The refe rence range was not u sed to interpret th is result as normal/abnormal . BACTERIA (test code = Few Negative A 5779768412) MUCOUS (test code = Slight Negative LPF A 5821008466) SQ EPITH (test code = HPF 1135950338) Lab Interpretation (test Abnormal code = 49037-2) [facility] Qctxpehbnwq2621-16-08 16:42:24 Test Item Value Reference Range Interpretation [...] = 10-24-2020 N Expiration Dt) Thyroid Stimulating Wzrrblp0345-52-07 08:35:16 Test Item Value Reference Range Interpretation Comments TSH (test code = TSH) 1.170 mIU/mL 0.270-4.200 Lipid Idltt6804-33-03 08:21:19 Test Item Value Reference Range Interpretation Comments Cholesterol Total 254 mg/dL 0-200 H RISK OF HE ART (test code = DISEASEPublishe d by Cholesterol Total) Citizen Of [place] [employer] Cathie lyte Optimal Borderl ine [...] calculation is LDL/HDL Ratio=L DL Calc/HDL Chol TMCJAJPTHILC0268-05-47 08:24:008.6[facility]orial CxvzpiqRONOJCIDMHUA0046-54-71 08:24:97550Jmosqetn SkayvuiSHHVWKMAAZOO9000-38-60 08:24:0027[facility] Yonis HTQAYKCOARQT7524-93-73 08:24:66043Lcacoyym DyppqcbXRZCUXZGWUHD0318-39-62 08:24:003.6Memorial JpyeccvNOYUOJHFLIDN0975-32-29 08:24:000.70[facility] Yonis MAWUPUTRIGPR4771-33-36 08:24:008.4[facility]orial UakiztjBLUMZVUYCPUR3876-90-59 08:24:03075Dpqelmtt AbhydldISMSGBBUJLKG1255-53-92 08:24:0086[facility] Yonis VOJOSZWRCQPD1457-46-58 08:24:006[facility]orial QnzadjhWWULYPIKDQ9660-09-72 08:24:00 11.6[facility]orial UylqjtbXJUMJWWGEU1238-36-44 08:24:003.78[facility]ann[facility]MATOLOGY 2019-01-26 08:24:0013.3[facility]orial QxffbjfNOHASSXSGP7362-75-27 08:24:0034.0[facility]orial ZlvtegoLHFHBFPBDL3765-40-71 08:24:006.3[facility] NagnltjGGDAEMAPFI6419-71-86 08:24:00 Test Item Value Reference Range Interpretation Comments MCH (test code = MCH) 30.7 pg 27.0-31.0 Memorial VfvmogxOHQIRIMLZN0999-25-37 08:24:0090.3[facility] HermannHEMATOLOGY 2019-01-26 08:24:0034.2[facility] FzjsqgeKPRQJEDDUP5941-81-94 08:24:24651Ajdvvcsr EqbvnhaLVHNWGKLFU8312-00-67 08:24:007.5[facility]orial VngqveeXTLEFBOKFMFS6766-55-80 08:24:008.6[facility]orial JokvcsuLIJBMPRTZLCV4145-13-28 08:24:41570Yugufwgq [place] GGWBIAHWZCVX2886-91-56 08:24:0027[facility]orial OlyrhyzHYGIGCROFUVK8069-36-46 08:24:00 139[facility]orial AnmfijpMQLOCSMXJXSA3803-70-70 08:24:003.6[facility] Yonis HLWJYOBDZYDR0659-70-67 08:24:000.70Memorial SfbvgxwPKEOTKRENUZO6552-84-71 08:24:008.4Memorial LzcxdrdSPFQIAOZZUKM9060-62-05 08:24:64671Iaioajsw Yonis HABJJFYBWLCS4507-90-96 08:24:0086Memorial VjtmqqjAZRJZTPYLISP9350-56-88 08:24:00 6Memorial XjiqlpqNQPFXLQMRU0576-43-76 08:24:0011.6[facility] HermannHEMATOLOGY 2019-01-26 08:24:003.78[facility]orial FtaaumvLVHOPATJYP2206-80-16 08:24:0013.3[facility] XeedaqzSYIPRTONSX4247-17-45 08:24:0034.0[facility]orial HdgjwqmWTTBIMWTNF8816-22-94 08:24:006.3[facility]orial KudldwhIBRJQAVVOD6897-86-58 08:24:00 Test Item Value Reference Range Interpretation Comments MCH (test code = MCH) 30.7 pg 27.0-31.0 Memorial SlgolnkDSREFJNVSZ1764-34-96 08:24:0090.3[facility]annHEMATOLOGY 2019-01-26 08:24:0034.2[facility]orial ZgxfggwMIWVUXTPYA7289-65-03 08:24:17711Sfxrsvep UhyflihNKZAGDRVHC1313-05-15 08:24:007.5[facility] HermannCHEM IMBJD2062-37-55 09:14:20445Zakokymk HermannCHEM DGTIZ2905-74-92 09:14:008.5[facility] HermannCHEM EMAGS7410-48-27 09:14:0013.3[facility] HermannCHEM JVGAD9393-29-58 09:14:0024 [facility] HermannCHEM DYZZJ9144-61-00 09:14:39629Tyvzauzm HermannCHEM PANEL 2019-01-25 09:14:0081[facility] HermannCHEM BUXQV4763-26-97 09:14:002[facility] HermannCHEM FZWMQ6434-55-88 09:14:003.3[facility] HermannCHEM AEVWB2070-81-14 09:14:000.60[facility] HermannCHEM RFFAN4899-30-11 09:14:07931Qcjgqyyq HermannCHEM IXLTV4384-24-57 09:14:42690Kooihocy HermannCHEM CVAGE2207-08-66 09:14:008.5 [facility] HermannCHEM PVHLV3058-96-09 09:14:0013.3[facility] HermannCHEM PANEL 2019-01-25 09:14:0024Mem[facility] HermannCHEM GQTME6410-20-25 09:14:27153Ymmxhqqo HermannCHEM OKUTH9616-82-76 09:14:0081[facility] HermannCHEM MGMHR8645-32-60 09:14:002[facility] HermannCHEM BTPVG8337-81-91 09:14:003.3[facility] HermannCHEM YPMMF0167-23-91 09:14:000.60[facility] HermannCHEM JBJMF1511-50-57 09:14:83993 [facility] HermannMOLECULAR BLLNHULOPL8455-76-59 16:22:00Negative (01/23/19 11:22 AM)[facility] HermannMOLECULAR FNZKWKBYUO4564-21-11 16:22:00Negative (01/23/19 11:22 AM)[facility] HermannCHEM IQJGL7277-64-30 15:42:002.76[facility] HermannCHEM PANEL 2019-01-23 15:42:002.76[facility] HermannCHEM RGSUD5471-90-17 12:32:000.9[facility] HermannCHEM FXLHR5032-50-41 12:32:000.9[facility] HermannCHEM ZVDUA6804-03-34 10:50:002.0[facility] HermannCHEM BDNMH7121-36-72 10:50:85804Jhagwvbv HermannCHEM HNPNE9927-77-31 10:50:0023[facility] HermannCHEM BUAXJ4066-17-94 10:50:84144 [facility] HermannCHEM XVSPR9748-94-95 10:50:003.1[facility] HermannCHEM PANEL 2019-01-23 10:50:78873Nxspaxej HermannCHEM TQHJU7560-75-56 10:50:005[facility] HermannCHEM EEOZU3537-55-93 10:50:000.50[facility] HermannCHEM XDRGQ7194-43-29 10:50:007.8[facility] HermannCHEM IZWHT8912-48-43 10:50:0083[facility] HermannCHEM PBSYV3040-89-53 10:50:0010.1Memorial EmribnwRJPZKHCFQM8485-22-08 10:50:000.2 Memorial UhaygwtAMAJHSCRSU4638-27-37 10:50:000.8[facility] HermannHEMATOLOGY 2019-01-23 10:50:005.5[facility]orial UkzpcwdMUAGXCHZGP3406-62-19 10:50:002.2[facility]orial KdhisozDUPPPDQUEU8755-44-40 10:50:000.1[facility]orial BnedvppORVSTPGXMI8269-10-60 10:50:0063.6Memorial QevnwjgVGKVMGIYNW0978-13-42 10:50:008.9[facility] Yonis LZFCFTKVZL8304-12-31 10:50:002.3Memorial ZzuckjgTKWDEYOQAM9178-44-14 10:50:00 Normal (01/23/19 5:50 AM)Memorial MbipeeaQBQANLOWFC9677-15-49 10:50:00Normal (01/23/19 5:50 AM)Memorial MpvpxjzNVCYKSGSUQ8131-46-81 10:50:0025.1Memorial TdogpowMDUVNBJWOL1082-20-37 10:50:0013.1Memorial TtmqhgbMGXRUGHUJR4712-63-58 10:50:61629Yqigexdo AifgecgWNCFCULZNM7353-03-87 10:50:007.7[facility] Yonis FXELKOFHUE4118-89-75 10:50:008.6[facility]orial TzwkwiyAPXBCYYYGC3011-31-67 10:50:00 10.0[facility] GuzhnldOBZVFGOAYN4007-00-40 10:50:0034.6[facility] HermannHEMATOLOGY 2019-01-23 10:50:0028.7[facility]orial AdgcgnpBXBJXTOPRL5404-87-51 10:50:0087.8[facility]orial NqosuatXOBPRCHMHO1086-80-78 10:50:00 Test Item Value Reference Range Interpretation Comments MCH (test code = MCH) 30.4 pg 27.0-31.0 Memorial ZqqxtzmGAFBAAFWXF2067-73-00 10:50:003.27[facility] HermannCHEM PANEL 2019-01-23 10:50:002.0[facility] HermannCHEM AHUDF8286-42-46 10:50:20880Wzozdjyi HermannCHEM RSYSV2335-39-58 10:50:0023[facility] HermannCHEM PFLET0539-24-52 10:50:82508Nsjxzozs HermannCHEM FAYTW7676-78-71 10:50:003.1[facility] HermannCHEM PTOWS8169-40-88 10:50:98525Agvzacuk HermannCHEM KOIVY0292-88-01 10:50:005 [facility] HermannCHEM TYZLQ3538-98-08 10:50:000.50[facility] HermannCHEM PANEL 2019-01-23 10:50:007.8[facility] HermannCHEM ZLSPF8325-05-53 10:50:0083[facility] HermannCHEM HEXTI5403-53-22 10:50:0010.1[facility] DskscmsCIVGOUCEIG2764-94-53 10:50:000.2[facility] ZhyxpgcWVFKIFDLSP6814-70-59 10:50:000.8[facility] Yonis UXYEIDOZUY9149-08-16 10:50:005.5[facility]orial DtywcixWLJXGQHIAV5977-19-40 10:50:002.2 Memorial CgowurcOAOSMIMRRK7912-10-67 10:50:000.1[facility] HermannHEMATOLOGY 2019-01-23 10:50:0063.6[facility] MzgebqfEUQFRXAOVD2638-83-47 10:50:008.9[facility] PywsjacAKTFQVNWKA4024-74-73 10:50:002.3[facility] UqodtntLEJWSIVUIJ4857-39-16 10:50:00Normal (01/23/19 5:50 AM)[facility] GlfniecPEQMFUVWRK3786-52-47 10:50:00 Normal (01/23/19 5:50 AM)[facility] ZeihqnlXJRKMOJXLE7811-16-99 10:50:0025.1[facility] LloxvsdLUGFVZRHCY3197-85-07 10:50:0013.1[facility] JhxdtmxKRBQFDUFBL3662-29-55 10:50:92028Utusieiq BddexpcJCPAMIZVUQ1615-16-85 10:50:007.7[facility] [place] UEBJXNUKCU6398-36-82 10:50:008.6[facility] BapaucdDONALIRJYG2674-40-11 10:50:00 10.0[facility] EaywnhnQWKACFRGUF9489-39-94 10:50:0034.6[facility] HermannHEMATOLOGY 2019-01-23 10:50:0028.7[facility] QokcjubBLMWKOFADZ5722-32-30 10:50:0087.8[facility] JdkauvaFHNRWCCJCZ4812-25-50 10:50:00 Test Item Value Reference Range Interpretation Comments MCH (test code = MCH) 30.4 pg 27.0-31.0 Memorial ZbthetdBAQGXBQTLU2800-46-01 10:50:003.27[facility] HermannCHEM PANEL 2019-01-22 11:32:002.4[facility] HermannCHEM QTXOG2026-33-38 11:32:002.4[facility] HermannCHEM DMWCG8481-58-69 09:04:003.0[facility] HermannCHEM EUEQB3214-58-94 09:04:003.0[facility] HermannURINE AND VJNHU4270-01-09 07:14:00<1[facility]annURINE AND WLGMJ9891-22-59 07:14:0025[facility]annURINE AND STOOL 2019-01-22 07:14:002[facility]annURINE AND WBIIB1175-76-06 07:14:00Light Yellow *NA*(01/22/19 2:14 AM)[facility]annUR[facility] AND JZGUV5309-64-59 07:14:00 Clear (01/22/19 2:14 AM)[facility] AND PXLCI7954-20-53 07:14:00 Test Item Value Reference Range Interpretation Comments UA Spec Grav (test code = UA Spec 1.014 1 Grav) [facility] XHUEE4181-17-84 07:14:00 Test Item Value Reference Range Interpretation Comments UA pH (test code = UA pH) 6.0 1 5.0-8.0 [facility] KVJRO3876-63-58 07:14:00Negative (01/22/19 2:14 AM) [facility] IAXGG4034-92-74 07:14:00Negative *NA*(01/22/19 2:14 AM) [facility] KXPHM9261-51-99 07:14:00Negative *NA*(01/22/19 2:14 AM) [facility] RIWXF4148-95-77 07:14:00Negative *NA*(01/22/19 2:14 AM) [facility] LSLMX0405-55-57 07:14:00Negative (01/22/19 2:14 AM) [facility] LSQEE8220-70-42 07:14:00Negative (01/22/19 2:14 AM) [facility] [id number] 07:14:00Negative (01/22/19 2:14 AM) [facility] [id number] 07:14:00<1[facility] [id number] 07:14:0025[facility] [id number] 07:14:002 [facility] [id number] 07:14:00Light Yellow *NA*(01/22/19 2:14 AM)[facility] [id number] 07:14:00Clear (01/22/19 2:14 AM) [facility] [id number] 07:14:00 Test Item Value Reference Range Interpretation Comments UA Spec Grav (test code = UA Spec 1.014 1 Grav) [facility] [id number] 07:14:00 Test Item Value Reference Range Interpretation Comments UA pH (test code = UA pH) 6.0 1 5.0-8.0 [facility] [id number] 07:14:00Negative (01/22/19 2:14 AM) [facility] [id number] 07:14:00Negative *NA*(01/22/19 2:14 AM) [facility] [id number] 07:14:00Negative *NA*(01/22/19 2:14 AM) [facility] [id number] 07:14:00Negative *NA*(01/22/19 2:14 AM) [facility] [id number] 07:14:00Negative (01/22/19 2:14 AM) [facility] [id number] 07:14:00Negative (01/22/19 2:14 AM) [facility] [id number] 07:14:00Negative (01/22/19 2:14 AM) [facility] [id number] 05:16:000.90[facility] [id number] 05:16:000.90[facility] [id number] 05:01:00Negative (01/22/19 12:01 AM)[facility] [id number] 05:01:00<0.02 [facility] [id number] 05:01:0049[facility]annCHEM PANEL 2019-01-22 05:01:000.6[facility]CHE[facility] [id number] 05:01:77397Pzxctgty HermannCHEM [id number] 05:01:004.0[facility]annCHE[facility] [id number] 05:01:0017[facility]annCHE[facility] [id number] 05:01:0025[facility]annCHE[facility] [id number] 05:01:008.1[facility]CHE[facility] [id number] 05:01:00 Test Item Value Reference Range Interpretation Comments B/C Ratio (test code = B/C Ratio) 20 1 6-25 [facility]annCHEM [id number] 05:01:00 Test Item Value Reference Range Interpretation Comments A/G Ratio (test code = A/G Ratio) 1.0 1 0.7-1.6 [facility] [id number] 05:01:004.1[facility] PANEL 2019-01-22 05:01:006.90[facility] SluxpfpEQXTHFUDRHJGA9114-50-31 05:01:00Negative *NA*(01/22/19 12:01 AM)[facility] GzbxplxWXAKEZAVSF9991-88-48 05:01:000.1[facility] CbhfejfOBZOSHHHMX4811-71-71 05:01:000.7[facility] LjrqdkmZDGCFAOYAM5699-28-98 05:01:000.0[facility] WdemhwmKXJIXXSRDY5052-20-01 05:01:000.0[facility] YBOVTNJRDT9833-13-45 05:01:000.9[facility] QgejrocFXDUIGTVDB4893-55-54 05:01:008.6 [facility] MprattvGSBJQRAVBU5461-02-26 05:01:000.6[facility]MATOLOGY 2019-01-22 05:01:0086.5[facility] VmvnvcuSAYQRMYVYX2293-27-31 05:01:005.7[facility] ZbridxwMDIKVBNIUW3248-81-65 05:01:006.9[facility] AjprrfvSVDCEYJGWC2302-69-77 05:01:009.9[facility] QieapitCKHBLGKKAU4030-62-25 05:01:0032.8[facility] OWSWNWIGVX7208-55-06 05:01:0013.6[facility] YnudmrdYSBLFHOPZX8323-65-29 05:01:00 443[facility] TlzkuexFXVEQCCNFK2329-27-99 05:01:007.3[facility] 2019-01-22 05:01:0014.0[facility] DjnnaaxGZOSLDEJVC6643-29-95 05:01:004.85[facility] QbqascxYGIVRXMPIK5073-90-77 05:01:0042.7[facility] KlzxqqlWSJMEBMBBP4501-15-88 05:01:00 Test Item Value Reference Range Interpretation Comments MCH (test code = MCH) 29.0 pg 27.0-31.0 [facility] PydwfokCRWSWEOCWF1899-74-35 05:01:0088.2[facility] 2019-01-22 05:01:00 Test Item Value Reference Range Interpretation Comments INR (test code = INR) 0.96 1 0.85-1.17 [facility] EmyegtcGSUXAROOTU9872-62-28 05:01:00 Test Item Value Reference Range Interpretation Comments PT (test code = PT) 12.6 s 12.0-14.7 [facility]uATAFUMLIVX1544-12-02 05:01:00 Test Item Value Reference Range Interpretation Comments PTT (test code = PTT) 25.9 s 22.9-35.8 [facility] YYCQZHF8653-39-58 05:01:00Negative (01/22/19 12:01 AM) [facility] LSAHFEL5142-89-10 05:01:00<0.02[facility] CARDIAC MVYZAHX7295-01-20 05:01:0049[facility]CHE[facility] MYZUR0910-24-34 05:01:000.6[facility]CHE[facility] SVKLD8157-92-18 05:01:82472Chbzfmve HermannCHEM UKFWT7037-23-41 05:01:004.0[facility]CHE[facility] ZLIFU1306-63-78 05:01:0017 [facility] YBVCL4613-31-24 05:01:0025[facility]annCHE[facility] PANEL 2019-01-22 05:01:008.1[facility]CHE[facility] QAHQW7829-38-05 05:01:00 Test Item Value Reference Range Interpretation Comments B/C Ratio (test code = B/C Ratio) 20 1 6-25 [facility] MZYGB3682-43-62 05:01:00 Test Item Value Reference Range Interpretation Comments A/G Ratio (test code = A/G Ratio) 1.0 1 0.7-1.6 [facility] RPOPW7650-94-55 05:01:004.1[facility]annCHE[facility] PANEL 2019-01-22 05:01:006.90[facility] WutitssONYBFWWLKPUEL5655-41-14 05:01:00Negative *NA*(01/22/19 12:01 AM)[facility] ZscxftrWVFIRRVZFY1568-99-58 05:01:000.1[facility] WsjrrzqVIOPQIWJUH6735-79-15 05:01:000.7[facility] RbsbranHPRKFQFPMA3430-39-62 05:01:000.0[facility] RbshngxFGALZUDDTF8986-11-54 05:01:000.0[facility] ARCHWNEYKT2944-23-10 05:01:000.9[facility] ZqdbkgfOTQSYFJPZU1524-42-55 05:01:008.6 [facility] GlgtbesLSDGJUWMTN3459-78-95 05:01:000.6[facility]annHEMATOLOGY 2019-01-22 05:01:0086.5[facility] UzhlbssVOCGFMMQLT1816-45-50 05:01:005.7[facility] TivgztcBBUKLLPFOK1067-85-43 05:01:006.9[facility] YgblkrnSSSAUFGPAR6036-81-89 05:01:009.9[facility] JdqafrtBVMVLDTHVD1867-08-44 05:01:0032.8[facility] ZZBTMUYBBT5812-01-52 05:01:0013.6[facility] AoywqgrXEJXBGFHCL1661-09-13 05:01:00 443[facility] ZjeebxuOXOXQBADGM3510-76-13 05:01:007.3[facility]annHEMATOLOGY 2019-01-22 05:01:0014.0[facility] AgchvxtEWAZZGHCVK5820-66-33 05:01:004.85[facility] XlefauaIMOJLIZXMV9408-39-96 05:01:0042.7[facility] RwlefvfTCADLYTHVS2479-74-61 05:01:00 Test Item Value Reference Range Interpretation Comments MCH (test code = MCH) 29.0 pg 27.0-31.0 [facility] HospitalMehlwqwCUDOJHLFFZ0203-36-59 05:01:0088.2[facility]HEMATOLOGY 2019-01-22 05:01:00 Test Item Value Reference Range Interpretation Comments INR (test code = INR) 0.96 1 0.85-1.17 [facility]MPDLHKHQLQ7677-07-12 05:01:00 Test Item Value Reference Range Interpretation Comments PT (test code = PT) 12.6 s 12.0-14.7 [facility]RHQWHHBWPH5510-26-14 05:01:00 Test Item Value Reference Range Interpretation Comments PTT (test code = PTT) 25.9 s 22.9-35.8 [facility]KpmwowtMJT7L5605-10-84 14:36:00 Test Item Value Reference Range Interpretation [...] 0.00-0.01 N code = ETOHU) Comprehensive Metabolic Nsmjt6837-93-68 14:36:00 Test Item Value Reference Range Interpretation [...] the [employer],http :[email or web address] ep.nih.gov Urinalysis Qzulrsyq5405-21-26 14:32:00 Test Item Value Reference Range Interpretation Comments Color (test code = COLOR) Yellow Yellow,Straw,Pl N yellow Clarity (test code = Clear Clear N CLAR) Specific [place] (test 1.024 1.001-1.035 N code = SPGR) [...] code = Few /HPF BACT) CBC with Nkrxjnykdajb1713-38-87 14:21:00 Test Item Value Reference Range Interpretation [...] code = ALYMPH) 3.0 K/cumm 0.5-4.6 N [place] Abs (test code = AMONO) 0.5 K/cumm 0.0-1.2 N Eos Abs (test code = AEOS) 0.19 K/cumm 0.00-0.74 N Baso Abs (test code = ABASO) 0.1 K/cumm 0.00-0.21 N
== END 2021-08-29 08:55 | disposition home or self-care (01) ==
LOC: ER 06:13
DX: F15.10 Other stimulant abuse, uncomplicated (principal); F31.9 Bipolar disorder, unspecified; Z98.82 Breast implant status; Z88.5 Allergy status to narcotic agent; Z88.8 Allergy status to other drugs, medicaments and biological substances
CPT/HCPCS: 36415; 71045; 80048; 80076; 80178; 83735; 83880; 84484; 85025; 85610; 93005; 96360; 96361; 99284

== ENCOUNTER 2021-08-29 18:45 | Emergency (ER) | payer OTHER ==
--- NOTE | 2021-08-29 20:11 | RAD REPORT ---
EXAM DESCRIPTION: RAD - Chest Single View - 08/29/2021 8:01 pm CLINICAL HISTORY: DYSPNEA COMPARISON: Chest Single View dated 08/29/2021; Chest Single View dated 08/28/2021; Chest Single View dated 07/11/2021; Chest Single View dated 06/03/2021 FINDINGS: Lines: None. Lungs: No evidence of edema or pneumonia. Pleural: No significant pleural effusions or pneumothorax. Cardiac: The heart size is within normal limits. Bones: No acute fractures. Other: IMPRESSION: No acute cardiopulmonary disease.
[2021-08-29 20:31] LABS: Barbiturates NEGATIVE (NEGATIVE); Benzodiazepines NEGATIVE (NEGATIVE); Cocaine NEGATIVE (NEGATIVE); METHAMPHETAM POSITIVE (NEGATIVE); Methadone NEGATIVE (NEGATIVE); Opiates NEGATIVE (NEGATIVE); Phencyclidine NEGATIVE (NEGATIVE); THC Cannibis NEGATIVE (NEGATIVE)
--- NOTE | 2021-08-29 22:02 | RAD REPORT ---
EXAM DESCRIPTION: CT - Chest For Pe Angio - 08/29/2021 9:45 pm CLINICAL HISTORY: DYSPNEA COMPARISON: No comparisons FINDINGS: Chest Wall: No suspicious thyroid nodules or pathologic lymphadenopathy. Bilateral breast prostheses. Lungs: Limited by motion. No suspicious pulmonary nodules or acute process in lungs. Pleura: No significant effusions or pneumothorax. Mediastinum/nasir: No pathologic lymphadenopathy. Pulmonary arteries/Aorta: No filling defect identified. Note that some of the segmental and subsegmen destini pulmonary arteries are not well evaluated due to motion. No aortic aneurysm. Heart: No significant pericardial effusion. Normal heart size. Subendocardial fat at the left ventric ular apex may be from prior myocardial infarct. Upper abdomen: No acute abnormality. Bones: No acute abnormality. All CT scans are performed using dose optimization technique as appropriate and may include automated exposure control or mA/KV adjustment according to patient size. IMPRESSION: Negative for clinically significant pulmonary embolism. No acute findings within the [address].
[2021-08-29] MEDS ORDERED: NA CHLORIDE 0.9% 0 ML ONE (22:07)
--- NOTE | 2021-08-29 22:07 | EDPHYS ---
Physician Documentation [facility] Name: Tiffany Quinn Age: 51 yrs Sex: Female : 1970 Arrival Date: 08/29/2021 Time: 18:49 Bed 18 Private MD: Andrea Angel ED Physician Manuel Ward HPI: 08/29 20:07 This 51 yrs old Female presents to ER via Ambulatory with complaints of rn Breathing Difficulty. 20:07 The patient has shortness of breath at rest. Onset: The symptoms/episode began/occurred rn today. Duration: The symptoms are intermittent. The patient's shortness of breath is aggravated by nothing, is alleviated by nothing. Associated signs and symptoms: Pertinent negatives: chest pain, non-productive cough, productive cough, diaphoresis, dizziness, fever, hemoptysis. Severity of symptoms: At their worst the symptoms were moderate in the emergency department the symptoms have improved. The patient has experienced similar episodes in the past. The patient has been recently seen by a physician:. Patient states earlier today in the afternoon began to have shortness of breath. Denies cough or fever. Denies chest pain. Patient has been seen here at least 3 times this week and was seen earlier today for chest pain and shortness of breath. Labs EKG and x-ray were unremarkable and was sent home. Patient states felt better. Was on the phone with her psychiatrist and felt like she was having trouble breathing. She was not sure if it was her anxiety and never went away so came in for evaluation once again. Denies any drug use tonight. Denies any trauma. Currently denies any trouble breathing.. Historical: - Allergies: 19:05 Haldol; vg1 19:05 Pepcid; vg1 19:05 Toradol; vg1 - Home Meds: 19:05 lithium carbonate 300 mg Oral tab 1 cap 3 times per day [Active]; vg1 - PMHx: 19:05 Anxiety; Bipolar disorder; vg1 - PSHx: 19:05 breast augmentation; Cholecystectomy; hernia repair; vg1 - Immunization history:: Adult Immunizations up to date, Client reports receiving the 2nd dose of the Covid vaccine. - Social history:: Smoking status: Patient denies any tobacco usage or history of. - Family history:: not pertinent. - Hospitalizations: : No recent hospitalization is reported. ROS: 20:07 Constitutional: Negative for fever, chills, and weight loss, Eyes: Negative for injury, rn pain, redness, and discharge, Neck: Negative for injury, pain, and swelling, Cardiovascular: Negative for chest pain, palpitations, and edema, Respiratory: Negative for cough, wheezing, and pleuritic chest pain, Abdomen/GI: Negative for abdominal pain, nausea, vomiting, diarrhea, and constipation, Back: Negative for injury and pain, MS/Extremity: Negative for injury and deformity, Skin: Negative for injury, rash, and discoloration, Neuro: Negative for headache, weakness, numbness, tingling, and seizure. Exam: 20:07 Constitutional: This is a well developed, well nourished patient who is awake, alert, rn and in no acute distress. Head/Face: Normocephalic, atraumatic. Eyes: Periorbital areas with no swelling, redness, or edema. ENT: Dry mucous membranes Cardiovascular: Tachycardic, regular. Respiratory: No increased work of breathing, no retractions or nasal flaring. Abdomen/GI: Soft, non-tender Skin: Warm, dry MS/ Extremity: Pulses equal, no cyanosis. Neurovascular intact. Full, normal range of motion. Equal circumference. Neuro: Awake and alert, GCS 15, oriented to person, place, time, and situation. Cranial nerves II-XII grossly intact. Motor strength 5/5 in all extremities. Sensory grossly intact. Cerebellar exam normal. Psych: Awake, alert, with orientation to person, place and time. Mild pressured speech. Denies suicidal ideation/hallucinations/homicidal ideation Vital Signs: 19:03 BP 155 / 103; Pulse 127; Resp 22; Temp 98.3; Pulse Ox 100% ; Weight 84.82 kg; Height 5 vg1 ft. 2 in. (157.48 cm); Pain 2/10; 22:04 BP 144 / 92; Pulse 95; Resp 18; rn 22:15 BP 144 / 80; Pulse 102; Resp 20; Temp 98.5(O); Pulse Ox 96% on R/A; cc4 19:03 Body Mass Index 34.20 (84.82 kg, 157.48 cm) vg1 MDM: 19:07 Patient medically screened. rn 22:04 Differential diagnosis: Anemia Anxiety Reaction Myocardial Infarction pneumonia, rn Pneumothorax Psychogenic pulmonary edema, Pulmonary Embolism. Data reviewed: vital signs, nurses notes, old medical records, lab test result(s), EKG, radiologic studies, CT scan, plain films, and as a result, I will discharge patient. Data interpreted: hall monitor: rate is 94 beats/min, rhythm is normal sinus rhythm, regular, with no ectopy, Interpretation: normal rate, normal rhythm, Pulse oximetry: on room air is 100 %. Interpretation: normal. Test interpretation: by ED physician or midlevel provider: ECG, plain radiologic studies, Chest x-ray clear of pneumonia or pneumothorax. Counseling: I had a detailed discussion with the patient and/or guardian regarding: the historical points, exam findings, and any diagnostic results supporting the discharge/admit diagnosis, lab results, radiology results, the need for outpatient follow up, to return to the emergency department if symptoms worsen or persist or if there are any questions or concerns that arise at home. Response to treatment: the patient's symptoms have markedly improved after treatment, and as a result, I will discharge patient. Special discussion: I discussed with the patient/guardian in detail that at this point there is no indication for admission to the hospital. It is understood, however, that if the symptoms persist or worsen the patient needs to return immediately for re-evaluation. Based on the history and exam findings, there is no indication for further emergent testing or inpatient evaluation. I discussed with the patient/guardian the need to see the primary care provider for further evaluation of the symptoms. I discussed with the patient/guardian the need to see the psychiatrist for further evaluation of the symptoms. 08/29 19: Order name: Urine Drug Screen rn 08/29 19: Order name: Troponin (emerg Dept Use Only); Complete Time: 22:03 rn 08/29 19:23 Order name: XRAY Chest (1 view); Complete Time: 22: rn 08/29 19:23 Order name: CT Chest For PE Angio; Complete Time: 22: rn 08/29 19:23 Order name: Urine Drug Screen; Complete Time: 22:03 EDNC 08/29 19:23 Order name: IV Start; Complete Time: 22:03 rn 08/29 19:23 Order name: EKG; Complete Time: : rn 08/29 19: Order name: EKG - Nurse/Tech; Complete Time: 22:03 rn Administered Medications: 22:10 Not Given (Patient Refused): NS 0.9% 1000 ml IV at 1000 ml once cc4 Disposition Summary: 08/29/21 22:06 Discharge Ordered Location: Home rn Problem: new rn Symptoms: have improved rn Condition: Stable rn Diagnosis - Dyspnea, unspecified rn Followup: rn - With: Andrea Angel MD - When: As needed - Reason: Recheck today's complaints, Re-evaluation by your physician Discharge Instructions: - Discharge Summary Sheet rn - Shortness of Breath, Adult rn Forms: - Medication Reconciliation Form rn - Thank You Letter rn - Antibiotic [employer] systems 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
--- NOTE | 2021-08-29 22:07 | ER ---
Nurse's Notes [facility] Name: Tiffany Quinn Age: 51 yrs Sex: Female : 1970 Arrival Date: 08/29/2021 Time: 18:49 Bed 18 Private MD: Andrea Angel Diagnosis: Dyspnea, unspecified Presentation: 08/29 19:03 Chief complaint: Patient states: Pt states difficulty breathing began today around vg1 1400. Denies cough but states chest pressure and headache. Denies NVD. Coronavirus screen: Vaccine status: Patient reports receiving the 2nd dose of the covid vaccine. Client denies travel out of the [place] in the last 14 days. Ebola Screen: Patient negative for fever greater than or equal to 101.5 degrees Fahrenheit, and additional compatible Ebola Virus Disease symptoms. Initial Sepsis Screen: Does the patient meet any 2 criteria? RR > 20 per min. HR > 90 bpm. Yes. Risk Assessment: Do you want to hurt yourself or someone else? Patient reports no desire to harm self or others. Onset of symptoms was August 29, 2021. 19:03 Method Of Arrival: Ambulatory vg1 19:03 Acuity: MANUEL 2 vg1 19:10 Initial Sepsis Screen: Does the patient have a suspected source of infection?. cc4 Triage Assessment: 19:05 General: Appears in no apparent distress. uncomfortable, Behavior is cooperative, vg1 anxious. Pain: Complains of pain in anterior aspect of left upper chest and head. Respiratory: Reports difficulty breathing Onset: The symptoms/episode began/occurred today, Denies cough. Historical: - Allergies: 19:05 Haldol; vg1 19:05 Pepcid; vg1 19:05 Toradol; vg1 - Home Meds: 19:05 lithium carbonate 300 mg Oral tab 1 cap 3 times per day [Active]; vg1 - PMHx: 19:05 Anxiety; Bipolar disorder; vg1 - PSHx: 19:05 breast augmentation; Cholecystectomy; hernia repair; vg1 - Immunization history:: Adult Immunizations up to date, Client reports receiving the 2nd dose of the Covid vaccine. - Social history:: Smoking status: Patient denies any tobacco usage or history of. - Family history:: not pertinent. - Hospitalizations: : No recent hospitalization is reported. Screenin:10 Abuse screen: Denies threats or abuse. Nutritional screening: No deficits noted. cc4 Tuberculosis screening: No symptoms or risk factors identified. Fall Risk None identified. Assessment: 19:10 Respiratory: Airway is patent. cc4 19:10 Respiratory: Airway is patent Respiratory effort is even, unlabored, Breath sounds are cc4 clear bilaterally. 19:10 Cardiovascular: No deficits noted. Denies chest pain, Heart tones S1 S2 Rhythm is sinus cc4 rhythm. 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 21:00 Reassessment: Patient appears in no apparent distress at this time. Resting quietly; # cc4 20 g angiocath inserted right AC x 1 attempt per JIGNA Brink with use of ultrasound, jannette. well.; To CT via stretcher. 21:30 Reassessment: Returned from CT via stretcher; denies any complaints; refuses IV NS with cc4 C. PANFILO Hay notified. 22:15 Reassessment: Patient appears in no apparent distress at this time. Patient states cc4 feeling better. Vital Signs: 19:03 BP 155 / 103; Pulse 127; Resp 22; Temp 98.3; Pulse Ox 100% ; Weight 84.82 kg; Height 5 vg1 ft. 2 in. (157.48 cm); Pain 2/10; 22:04 BP 144 / 92; Pulse 95; Resp 18; rn 22:15 BP 144 / 80; Pulse 102; Resp 20; Temp 98.5(O); Pulse Ox 96% on R/A; cc4 19:03 Body Mass Index 34.20 (84.82 kg, 157.48 cm) vg1 ED Course: 18:49 Patient arrived in ED. mr 18:49 Andrea Angel MD is Private Physician. mr 19:03 Manuel Ward MD is Attending Physician. rn 19:05 Triage completed. vg1 19:05 Arm band placed on. vg1 19:10 Patient has correct armband on for positive identification. Bed in low position. Call cc4 light in reach. Side rails up X2. equipment monitor phototypesetting on. Pulse ox on. NIBP on. 19:31 Yelena Breen, RN is Primary Nurse. cc4 19:50 X-ray(s) taken. dc2 20:01 XRAY Chest (1 view) In Process Unspecified. EDMS 20:15 No provider procedures requiring assistance completed. cc4 21:40 Inserted saline lock: 18 gauge in right antecubital area, using aseptic technique. bb 21:45 CT Chest For PE Angio In Process Unspecified. EDMS 22:03 Urine Drug Screen Sent. cc4 22:06 Andrea Angel MD is Referral Physician. rn 22:15 IV discontinued, intact, bleeding controlled, No redness/swelling at site. Pressure cc4 dressing applied. Administered Medications: 22:10 Not Given (Patient Refused): NS 0.9% 1000 ml IV at 1000 ml once cc4 Outcome: 22:06 Discharge ordered by MD. rn 22:15 Discharge instructions given to patient, Instructed on discharge instructions, follow cc4 up and referral plans. Demonstrated understanding of instructions, follow-up care. 22:15 Discharged to home ambulatory. cc4 22:15 Condition: stable Signatures: Dispatcher [employer] EDAR Vinita GanKeena RN RN bb Manuel Ward MD MD rn Garcia, Victoria, RN RN vg1 Yelena Breen, RN RN cc4 Luly Baez RN RN dc2 Corrections: (The following items were deleted from the chart) 08/30 03:53 11 22:23 Patient left the ED. cc4 cc4 08/30 03:54 08/29 20:15 BP 144 / 80; Pulse 102bpm; Resp 20bpm; Pulse Ox 96% RA; Temp 98.5F Oral; cc4cc4
[2021-08-29 22:33] VITALS: TEMP 98.3; O2SAT 100
[2021-08-29 22:34] VITALS: BP 144/92
[2021-08-29] MEDS ORDERED: NA CHLORIDE 0.9% 500 ML ONE (23:21)
--- NOTE | 2021-09-01 18:32 | EKG ---
Test Date: 2021-08-29 Test Time: 19:41:16 Nurses Educator: CARLOS MEASUREMENT RESULTS: Intervals: Rate: 99 MI: 136 QRSD: 82 QT: 362 QTc: 464 [place]: P: 16 MI: 136 QRS: -36 T: 11 INTERPRETIVE STATEMENTS: Normal sinus rhythm Left axis deviation RSR' or QR pattern in V1 suggests right ventricular conduction delay Minimal voltage criteria for LVH, may be normal variant Anterolateral infarct, age undetermined Abnormal ECG Compared to ECG 08/29/2021 19:40:03 Sinus tachycardia no longer present Myocardial infarct finding still present Electronically Signed On 09-01-21 18:24:27 PHARMACY RESIDENT by Tito Smiley
--- OUTSIDE RECORDS SUMMARY | 2021-09-06 13:32 | XMS REPORT | Continuity of Care Document ---
:1970 Author Organization [facility] t Address [address] [place] [address] Care Team Providers Name Role Phone UNKNOWN [...] oria 3 01:52:00 l LOW PB 00:00: [place] 00 Active 01/21/2019 [facility] INFECTIOUS Diagnosis Active 2019-02-06 Memoria GASTROENTE 330 08:58:00 l RITIS AND 00:00: [place] COLITIS INFECTIOUS 00 GASTROENTE RITIS AND COLITIS Active 01/21/2019 [facility] Irregular Irregular Disease Active Uni vers menstrual menstrual 8-15 ity of cycle cycle 00:00: [address] Skin Skin Disease Active Univers lesion lesion 8-15 ity of 00:00: [address] Psychiatri Psychiatri Disease Active U nivers c disorder c disorder 8-15 it y of 00:00: [address] Well woman Well woman Disease Active U kavita exam with exam with 8-15 ity of routine routine 00:00: [place] gynecologi gynecologi 00 Me dical nicky exam nicky exam Branch INFECTIOUS Diagnosis Active 2019-02-06 Memoria GASTROENTE 08:58:00 winifred WALTON AND Yonis COLITIS, INFECTIOUS GASTROENTE RITIS AND COLITIS, Active [facility] Allergies, Adverse Reactions, Alerts Allergy Allergy Status Severity Reaction(s) Onset Inactive Treating Comm ents Source Name Type Date Date Clinician NO KNOWN Drug Active Univers ALLERGIE Class ity of S [facility] Phenerga Phenerga Active Memori a n n l Yon[place] Social History Social Habit Start Date Stop Date Quantity Comments Source History of Cigarette Smoker [facility] of tobacco use [facility] Tobacco Comment 2-3 cigs a day [facility]ive [facility] Exposure to Not sure [facility] SARS-CoV-2 [facility] (event) [place] Tobacco use and 2016-06-08 2016-06-08 Never used [facility] y of exposure 00:00:00 00:00:00 [facility] Alcohol intake 2016-06-08 2016-06-08 Current University 00:00:00 00:00:00 non-drinker of [facility] alcohol (finding) Branch Smoking Status Start Date Stop Date Source Social History 2019-01-22 05:00:12 [facility] Current some day smoker 2016-06-08 00:00:00 [facility] Medications Ordered Filled Start Stop Current Ordering Indication Dosage Frequency Signature Comments Components Source Medication Medication Date Date Medication? Clinician (SIG) Name Name ondansetron 2019-10 2020- No 4mg 4 mg, [facility] ers (ZOFRAN-ODT 2-05 05- Oral, ity of ) 15:15: 14:16 ONCE, 1 [place] disintegrat 00 :00 dose, Mon Med ical ing tablet 09/30/20 at [facility] 4 mg 0915, Routine ondansetron 2019-10 2020- No 4mg 4 mg, [facility] ers (ZOFRAN-ODT 2-05 05- Oral, ity of ) 14:30: 13:32 ONCE, 1 [place] disintegrat 00 :00 dose, Mon Med ical ing tablet 09/30/20 at [facility] 4 mg 0830, Routine ondansetron 2019-10 Yes [id number] 4mg Take 1 Univers 4 mg 2-07 tablet by ity of disintegrat 00:00: mouth [place] ing tablet 00 every 8 Medica l (eight) Branch hours as needed for Nausea and Vomiting (N/V). ciprofloxac 2019- Yes 500 mg = 1 Memoria in 500 mg 4-04 tab, PO, l oral tablet 17:35: [id number], X Yonis 00 4 day, # 8 tab, 0 Refill(s) Ondansetron 2018- Yes 4 mg = 1 Me moria 4 MG Oral 4-04 tab, PO, l Tablet 17:35: Q6H, PRN [place] [Zofran] 00 Nausea/Vom iting, # 20 tab, [...] 4-04 tab, PO, l oral tablet 17:35: [id number], X [place] 00 4 day, # 8 tab, 0 [...] s with feeding tube less than 14 [place] (Dobhoff, J-tube etc) and pediatric and patients. [...] s with feeding tube less than 14 [place] (Dobhoff, J-tube etc) and pediatric and patients. [...] Memoria 4-01 Route: PO, l 22:00: QPM, [place] Dosing Weight 75, kg, Start date: 01/23/19 [...] Memori a 01-23 interfere l 15:00: w/enteral [place] 00 feedings - Take 1 hr before [...] PO, ONCE, l mEq oral 14:20: 0 [place] tablet, 00 Refill(s) extended release Metronidazo No 500 mg, Mem oria le 500 MG 4-01 PO, l Oral Tablet 14:20: [id number], 0 H ermann [Flagyl] 00 Refill(s) Ciprofloxac No 500 mg, Mem oria in 500 MG 4-01 PO, l Oral Tablet 14:20: [id number], 0 Yon[place] [Cipro] 00 Refill(s) potassium Yes 40 mEq, Memor ia chloride 20 4-01 PO, ONCE, l mEq oral 14:20: 0 [place] tablet, 00 Refill(s) extended release Metronidazo No 500 mg, Mem oria le 500 MG 4-01 PO, l Oral Tablet 14:20: ABXQ8H, 0 H ermann [Flagyl] 00 Refill(s) Ciprofloxac No 500 mg, Mem oria in 500 MG 4-01 PO, l Oral Tablet 14:20: [id number], 0 Y[place] [Cipro] 00 Refill(s) Potassium No Notes: Memori a Chloride 01-23 (Same as: l 14:17: K-Dur 20) [place] "Do Not Crush" Give with food and full glass of water For patients unable to swallow tablet, dissolve in one half glass of water. Allow about 2 minutes for the tablets to disintegra te. Stir before giving to prepare slurry and administer . Please exclude Patient s with feeding tube less than 14 [place] (Dobhoff, J-tube etc) and pediatric and patients. [...] s with feeding tube less than 14 [place] (Dobhoff, J-tube etc) and pediatric and patients. [...] oria 3-31 to exceed l 15:03: 400mg/day. [place] (Same As: Ultram) normal No 1,000 mL, [...] 3-31 Route: IM, l 09:47: Drug form: [place] 00 PDR/INJ, PRN, Dosing Weight 75.994, kg, PRN Blood Glucose Results, Start date: 01/22/19 4:47:00 CDT, Duration: 30 day, Stop date: 02/21/19 4:46:00 CDT Dextrose 2019-0 No 12.5 gm, Memor ia 50% Syringe 3-31 25 mL, l 09:47: Route: [place] 00 IVP, Drug Form: INJ, Dosing Weight [...] Memoria 3-31 (Same as: l 08:56: Zofran) [place] 00 MEDICATION WASTE Product Size: 4 mg Product Wasted: ___ mg Zofran No Notes: Memoria 3-31 (Same as: l 08:56: Zofran) [place] 00 MEDICATION WASTE Product Size: 4 mg [...] moria IV 3-31 1,000 l 08:52: ml/hr, [place] 00 Infuse Over: 1 hr, Route: IV, [...] moria IV 3-31 1,000 l 05:44: ml/hr, [place] 00 Infuse Over: 1 hr, Route: IV, 1,000, Drug form: INJ, ONCE, Priority: STAT, Dosing Weight 75.994 kg, Start date: 01/22/19 0:44:00 CDT, Stop date: 01/22/19 0:44:00 CDT Zofran No Notes: Memoria 3-31 (Same as: l 04:52: Zofran) MEDICATION WASTE Product Size: 4 mg Product Wasted: ___ mg Saline No Notes: Memoria Flush 0.9% 3-31 Same as: l 04:52: BD [place] 00 Posiflush Sterile Zofran No Notes: Memoria [...] tablet by ity of HYDROCHLORI 00:00: mouth [place] DE,) 4 mg 00 every 8 Medical tablet (eight) Branch hours. ibuprofen Yes 200mg Take 200 Uni vers (ADVIL) 200 8-15 mg by ity of mg tablet 19:02: mouth [place] 27 every 6 Medical (six) Branch hours as needed. CLONAZEPAM Yes Take by Uni vers (KLONOPIN 8-15 mouth. ity of ORAL) 19:02: [place] 27 Medical Branch CITALOPRAM Yes Take by Uni vers HYDROBROMID 8-15 mouth. ity of E 19:02: [place] (CITALOPRAM 27 Medical ORAL) Branch misoprostol Yes [...] H it y of en-caff 00:00: PRN. [place] (ESGIC) 00 Medical 50-325-40 Branch mg tablet dextroamphe Yes TK 1 T PO U nivers tamine-amph 7-20 BID. ity of etamine 00:00: [place] (ADDERALL) 00 Medical 20 mg Branch tablet amoxicillin 2014-10 Yes 500mg Take 1 Cap Univers (TRIMOX) 1-16 by mouth 3 ity o f 500 mg 00:00: (three) [place] capsule 00 times Medical daily. Branch traMADOL 2014-10 Yes 50mg Take 1 Tab Uni vers (ULTRAM) 50 1-16 by mouth ity of mg tablet 00:00: every 6 [place] 00 (six) Medical hours as Branch needed for Pain (scale 4-6). naproxen 2015-1 Yes 500mg Take 1 Tab Un parul (NAPROSYN) 1-16 by mouth 2 ity of 500 mg 00:00: (two) [place] tablet 00 times Medical daily with Branch meals. Vital Signs Vital Name Observation Time Observation Value Comments Source Systolic blood 2020-09-30 14:00:00 126 mm[Hg] Univer sity of pressure [facility] Diastolic blood 2020-09-30 14:00:00 84 mm[Hg] Unive rsity of [facility] Heart rate 2020-09-30 14:00:00 79 /min Universi ty of [facility] Oxygen saturation in 2020-09-30 14:00:00 98 /min University of Arterial blood by [facility] Pulse oximetry Branch Body temperature 2020-09-30 13:26:[address] [facility] ersity of [facility] Respiratory rate 2020-09-30 13:26:00 16 /min Univ ersity of [facility] Body weight 2020-09-30 13:26:00 72.576 kg Universi ty of [facility] BMI 2020-09-30 13:26:00 28.80 kg/m2 Universi ty of [facility] Systolic blood 2020-09-30 14:00:00 126 mm[Hg] Univer sity of [facility] Diastolic blood 2020-09-30 14:00:00 84 mm[Hg] Unive rsity of [facility] Heart rate 2020-09-30 14:00:00 79 /min Universi ty of [facility] Branch Oxygen saturation in 2020-09-30 14:00:00 98 /min University of Arterial blood by [facility] Pulse oximetry Branch Body temperature 2020-09-30 13:26:[address] [facility] ersity of [facility] Branch Respiratory rate 2020-09-30 13:26:00 16 /min Univ ersity [facility] Body weight 2020-09-30 13:26:00 72.576 kg Universi ty of [facility] BMI 2020-09-30 13:26:00 28.80 kg/m2 Universi ty of [facility] Temperature Oral (F) 2019-01-28 01:16:00 98.6 F [facility] [place] Systolic (mm Hg) 2019-01-28 01:16:00 Estrada nadir [place] Diastolic (mm Hg) 2019-01-28 01:16:00 Mem orial [place] Heart Rate 2019-01-28 01:16:00 Memorial Yon[place] Respitory Rate 2019-01-28 01:16:00 Memori al [place] Systolic (mm Hg) 2019-01-27 20:42:00 Estrada rial [place] Diastolic (mm Hg) 2019-01-27 20:42:00 Mem orial Y[place] Heart Rate 2019-01-27 20:42:00 Memorial [place] Respitory Rate 2019-01-27 20:42:00 Memori al [place] Temperature Oral (F) 2019-01-27 20:42:00 98.5 F Memorial [place] Systolic (mm Hg) 2019-01-27 17:00:00 Estrada rial [place] Diastolic (mm Hg) 2019-01-27 17:00:00 Mem orial [place] Temperature Oral (F) 2019-01-27 17:00:00 98.5 F Memorial [place] Heart Rate 2019-01-27 17:00:00 Memorial [place] Respitory Rate 2019-01-27 17:00:00 Memori al [place] Height 2019-01-22 14:35:00 157.48 cm Memorial Y[place] BMI Calculated 2019-01-22 14:35:00 Memori al [place] Weight 2019-01-22 14:35:00 [facility] [place] Weight 2019-01-22 04:34:00 [facility] [place] Procedures Procedure Date / Time Performed Performing Clinician Sourc e URINALYSIS 2020-09-30 13:27:00 Chuy Jackson o f [facility] ADC,CLC OR LCC ONLY - 2020-09-30 13:27:00 Chuy Jackson [facility] INFLUENZA A & B DIRECT Medical B ranch ANTIGEN COVID-19 (ID NOW RAPID 2020-09-30 13:27:00 Chuy Jackson [facility] TESTING) Medical Branch Encounters Start End Encounter Admission Attending Care Care Encounter Source Date/Time Date/Time Type Type Clinicians Facility Department ID 2019-01-22 Inpatient E [facility] MED [id number] [facility] W 04:39:00 2020-09-30 2020-09-30 Emergency DENIA Jackson [id number] 07:22:00 08:18:00 Chuy Jimenez [id number] [place] [id number] [place] [id number] 2020-09-30 2020-09-30 Emergency [facility] [id number] Univers 07:22:00 08:18:00 Chuy Jimenez [id number] i Alyssa [id number] [facility] [id number] [place] [address] Branch 2020-09-30 2020-09-30 Emergency X [facility] ERT [id number] Univers 07:22:00 07:22:00 CHUY tubbs [facility] 2020-03-04 2020-03-14 Inpatient 3 [facility] PSY [id number] 15:38:00 15:25:00 [facility] 2019-01-22 2019-01-28 Inpatient [facility] [id number] Memoria 04:33:00 04:40:00 Yonis 00 l [facility] 2018-02-21 2018-02-20 Inpatient E [facility] MED [id number] 14:48:00 13:18:00 [facility] Results Test Description Test Time Test Comments Results Result Comments Source ADC,CLC OR LCC ONLY - INFLUENZA A & B DIRECT ANTIGEN 2020-09 14:04:00 Test Item Value Reference Range Interpretation Comme nts Influenza A (test code = 48817-4) Negative Negative Influenza B (test code = 90237-4) Negative Negative Lab Interpretation (test code = 41857-2) [facility]2020-09-30 14:03:00 Test Item Value Reference Range Interpretation Comments SARS-CoV-2 Rapid ID NOW Not Detected Not Detected (test code = 16701-0) PERRY (test code = PERRY) ID NOW COVID-19 Assay is an isothermal nucleic acid amplification test intended for the qualitative detection of nucleic acid from SARS-CoV-2 viral RNA in nasopharyngeal (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 It is used under Emergency [...] indicated. Lab Interpretation Normal (test code = 82764-7) [facility] 13:55:00 Test Item Value Reference Range Interpretation Comments APPEARANCE (test code = Hazy Clear A 7525917571) COLOR (test code = Yellow Yellow 6506977723) PH (test code = 4.8-8.0 3779353327) SP GRAVITY (test code = 1.003-1.030 9707042532) GLU U QUAL (test code = Normal Normal 4849483147) BLOOD (test code = Negative Negative 9826227587) KETONES (test code = 5 mg/dL Negative A 5960728931) PROTEIN (test code = Negative Negative 2887-8) UROBILIN (test code = 2.0 mg/dL Normal A 5068682609) BILIRUBIN (test code = Negative Negative 9162243429) NITRITE (test code = Negative Negative 6149521397) LEUK ROZINA (test code = 25/uL Negative A 6506461440) RBC/HPF (test code = See_Comment [Autom ated message] 9794666941) The system Vertigo generated this result transmit ngozi reference range : 0 - 3 HPF. The refe rence range was not u sed to interpret th is result as normal/abnormal . WBC/HPF (test code = See_Comment [Autom ated message] 1270196208) The system Vertigo generated this result transmit ngozi reference range : 0 - 5 HPF. The refe rence range was not u sed to interpret th is result as normal/abnormal . BACTERIA (test code = Few Negative A 4879440136) MUCOUS (test code = Slight Negative LPF A 6622011441) SQ EPITH (test code = HPF 7580807337) Lab Interpretation (test Abnormal code = 55674-5) [facility] Ztgbvrbaqhr1201-15-86 16:42:24 Test Item Value Reference Range Interpretation [...] = 10-24-2020 N Expiration Dt) Thyroid Stimulating Spevjud0243-55-90 08:35:16 Test Item Value Reference Range Interpretation Comments TSH (test code = TSH) 1.170 mIU/mL 0.270-4.200 Lipid Vetwm6317-80-12 08:21:19 Test Item Value Reference Range Interpretation Comments Cholesterol Total 254 mg/dL 0-200 H RISK OF HE ART (test code = DISEASEPublishe d by Cholesterol Total) [place] [employer] Cathie lyte Optimal Borderl ine [...] calculation is LDL/HDL Ratio=L DL Calc/HDL Chol RPNMEZSCRPNE9991-72-74 08:24:008.6Memorial EypeaerBIPGDVIPMQOS0292-42-03 08:24:09146Ovofuhif CgyhytmCZKSLBSHWZEP2508-82-11 08:24:0027Memorial Yonis IUCJJQOJSLWI2318-78-46 08:24:98141Wwbrjolp AjsudazZCJNFQIYOQRA5424-55-77 08:24:003.6Memorial TeyirklHKYNQSOGHGWC1164-56-25 08:24:000.70[facility] Y[place]is NSILNRZVOZER8580-80-60 08:24:008.4Memorial ZjzuctkXUSQRIALCMQM2584-90-66 08:24:09089Oonjmyjm TqldmbrYGGWDEDVQTXG3984-26-66 08:24:0086Memorial Yoins JHGNZSLYLUYZ8267-67-86 08:24:006[facility]orial OcgarkhATWUJMKOPZ9276-50-87 08:24:00 11.6Memorial CexvkvjLSVBABXFND1791-93-35 08:24:003.78[facility] HermannHEMATOLOGY 2019-01-26 08:24:0013.3Memorial TexdyqcQYDUWVUWLA1410-43-75 08:24:0034.0[facility]orial ApowfqzJWQHWGUPIY9471-04-61 08:24:006.3[facility]orial GstyxhhBJNRMBGJJI7852-61-88 08:24:00 Test Item Value Reference Range Interpretation Comments MCH (test code = MCH) 30.7 pg 27.0-31.0 Memorial VikpapqSFWTFHDMNO8383-32-95 08:24:0090.3[facility] HermannHEMATOLOGY 2019-01-26 08:24:0034.2Memorial XxoexxpESLZVTJLJO4624-03-93 08:24:66457Hycfxdvb LpiectlWEOREJEOMS1027-71-47 08:24:007.5[facility]orial XfeqdvxGYUDOFFWHRNI3965-72-45 08:24:008.6[facility]orial VnoxkqeCWJMWHBQSMEY7572-24-49 08:24:32428Cevedbdj [place] MDNYKJKAPWBG6476-93-99 08:24:0027[facility]orial GwytcbkEMIVJPCFKSSS0935-70-84 08:24:00 139[facility]orial YztspriXMNHMFGJSTWR4022-13-58 08:24:003.6[facility] Y[place] KAARMZOMOEJJ1695-90-61 08:24:000.70Memorial AywcwtjLXJLDVMUGHMM9750-28-67 08:24:008.4Memorial BmszmltJHPOICVCLJAN9589-90-49 08:24:53728Amxuyeoj [place] NINVKFANZVWD7624-60-82 08:24:0086Memorial YackaraOZAPVPIQCGPE2108-37-49 08:24:00 6Memorial ZjetcaxKPUEMLPYVN0806-76-87 08:24:0011.6[facility] HermannHEMATOLOGY 2019-01-26 08:24:003.78Memorial PlarvmlCLMQDJLULX7797-50-40 08:24:0013.3[facility]orial ArodsguQOSNRJUSUZ8082-28-09 08:24:0034.0Memorial GvfgndrHTDMJSSNMT6118-67-36 08:24:006.3[facility]orial CmckyrpYBDEFGHCAN1192-82-96 08:24:00 Test Item Value Reference Range Interpretation Comments MCH (test code = MCH) 30.7 pg 27.0-31.0 Memorial XjayhumLHCFUXNVBO4565-03-91 08:24:0090.3[facility] HermannHEMATOLOGY 2019-01-26 08:24:0034.2Memorial PsmwelpOXQSDDXCXP2490-64-06 08:24:55527Vvhjxtcr GkqcxwmEIUJMJAYRR8647-65-88 08:24:007.5[facility] HermannCHEM FIZNY4686-90-09 09:14:48109Tsgqakga HermannCHEM FLQCL2111-47-09 09:14:008.5[facility] HermannCHEM FSVJB6924-55-95 09:14:0013.3[facility] HermannCHEM BOFHJ1279-90-39 09:14:0024 [facility] HermannCHEM JCJEZ9864-40-23 09:14:70092Ukbtogpx HermannCHEM PANEL 2019-01-25 09:14:0081[facility] HermannCHEM KFDZO6401-21-96 09:14:002[facility] HermannCHEM ISBAY9672-74-32 09:14:003.3[facility] HermannCHEM SAFTO3050-38-86 09:14:000.60[facility] HermannCHEM FNRZG1105-20-42 09:14:93083Kcmzjtxb HermannCHEM OWOPO7886-57-81 09:14:98168Hcktdklc HermannCHEM MHSQY1242-57-46 09:14:008.5 [facility] HermannCHEM MUFXV1499-60-90 09:14:0013.3[facility] HermannCHEM PANEL 2019-01-25 09:14:0024Mem[facility] HermannCHEM TXWXJ1145-76-74 09:14:26677Lvhhmlsk HermannCHEM DMSCL5477-40-67 09:14:0081[facility] HermannCHEM TZKED9387-04-85 09:14:002[facility] HermannCHEM WUCIX8577-79-30 09:14:003.3[facility] HermannCHEM XZOKE3664-04-86 09:14:000.60[facility] HermannCHEM KTKBK8431-46-00 09:14:39853 [facility] HermannMOLECULAR AKWRRFISLM1698-92-54 16:22:00Negative (01/23/19 11:22 AM)[facility] HermannMOLECULAR KHASGAHLBO8289-36-12 16:22:00Negative (01/23/19 11:22 AM)[facility] HermannCHEM EXJZM9491-49-54 15:42:002.76[facility] HermannCHEM PANEL 2019-01-23 15:42:002.76[facility] HermannCHEM VWKEU1013-65-38 12:32:000.9[facility] HermannCHEM XCDCN1564-14-31 12:32:000.9[facility] HermannCHEM EOHSS6624-16-32 10:50:002.0[facility] HermannCHEM PHEMW4470-55-49 10:50:01946Mhgxpbal HermannCHEM TIKRG1930-90-06 10:50:0023[facility] HermannCHEM ZPWLL1922-01-10 10:50:51290 [facility] HermannCHEM OMOWU9591-72-94 10:50:003.1[facility] HermannCHEM PANEL 2019-01-23 10:50:86206Wrakzfuh HermannCHEM LHYZD1484-91-85 10:50:005[facility] HermannCHEM RPXSJ5800-26-27 10:50:000.50[facility] HermannCHEM QWMQO2961-75-74 10:50:007.8[facility] HermannCHEM PJVRN8333-84-17 10:50:0083[facility] HermannCHEM WJKKL3028-46-89 10:50:0010.1Memorial CwqfswcHYJAZFQRVP5916-47-40 10:50:000.2 Memorial MgsmjseWMXYMHXFMY8612-38-79 10:50:000.8[facility] HermannHEMATOLOGY 2019-01-23 10:50:005.5Memorial CryiueeUIWQPKJGJE1593-60-05 10:50:002.2Memorial QczgusoWKVYLCSHGC5060-94-85 10:50:000.1Memorial NeqzpvrBCPRJCTCMF8303-06-92 10:50:0063.6Memorial PvvbtgaRQDINNUPVB8288-55-87 10:50:008.9[facility] Yonis LEUFAQSYWR3917-91-19 10:50:002.3Memorial AiflidcIPDVMZQNGJ1616-90-59 10:50:00 Normal (01/23/19 5:50 AM)Memorial LtwcwizLFLYXTPSAK9167-78-59 10:50:00Normal (01/23/19 5:50 AM)[facility]orial WiatwhvRQDYBLOOSQ9912-98-12 10:50:0025.1[facility]orial ItrrqliHMQXWWDFUD6245-69-33 10:50:0013.1Memorial XmffcjaEDAEAKVTJU5448-28-90 10:50:26600Wvmfzyij LzqzbkaZELFCOVUPP0696-87-58 10:50:007.7[facility] Yonis JHUURNLDXY2936-68-57 10:50:008.6[facility]orial NjaiepjWKUJGISDJS9138-22-92 10:50:00 10.0Memorial XpsjqjgEBADERFTKG7404-44-63 10:50:0034.6[facility] HermannHEMATOLOGY 2019-01-23 10:50:0028.7[facility]orial MzhkrizSROEXVNVAI6924-23-16 10:50:0087.8Memorial EraqhyfKVKSHLMTKW1116-65-12 10:50:00 Test Item Value Reference Range Interpretation Comments MCH (test code = MCH) 30.4 pg 27.0-31.0 Memorial SmhjrsaKRGXIFZLSD1267-40-91 10:50:003.27[facility] HermannCHEM PANEL 2019-01-23 10:50:002.0[facility] HermannCHEM BGQKO1265-12-00 10:50:07148Noskgoam HermannCHEM GTZHG8386-43-84 10:50:0023[facility] HermannCHEM VDNXR5829-33-34 10:50:18824Cscoqqun HermannCHEM VLVTI0952-90-10 10:50:003.1[facility] HermannCHEM EDVBK5818-74-40 10:50:84362Wpudxjmc HermannCHEM OKSBH7145-25-75 10:50:005 [facility] HermannCHEM POXJP7715-28-91 10:50:000.50[facility] HermannCHEM PANEL 2019-01-23 10:50:007.8[facility] HermannCHEM EPZWS3512-24-12 10:50:0083[facility] HermannCHEM ESKNE7369-36-95 10:50:0010.1[facility]orial NhcrqqfDRWCAEHCAU9275-46-93 10:50:000.2Memorial FeeqyekLPUMWDMVQM4041-39-62 10:50:000.8[facility] Yonis QQCJSMDRWO7512-40-50 10:50:005.5[facility]orial BhavnakEYCELTFLOI4382-68-27 10:50:002.2 Memorial VqryzvhGGVUEEWUGU8554-89-27 10:50:000.1[facility] HermannHEMATOLOGY 2019-01-23 10:50:0063.6[facility] MayadkmTVPVAAVFYM7700-08-45 10:50:008.9[facility] YfodtbpTWQTBNKSQK2890-81-93 10:50:002.3[facility]orial ZgbwejvJHCDFCCXJK1134-60-65 10:50:00Normal (01/23/19 5:50 AM)[facility] HqppajhSEYAMGLFNW7635-53-07 10:50:00 Normal (01/23/19 5:50 AM)[facility] XagaufkTVOGTBLNMO6323-24-52 10:50:0025.1[facility] RahvvvwFAAJAPLSDP1637-59-57 10:50:0013.1[facility] GtqzzsvYGMPSTCNFW5437-60-80 10:50:34331Znckjmdr YubucrdNWSXQSEBZL9244-62-12 10:50:007.7[facility] [place] SMGECCFNUP6276-55-75 10:50:008.6[facility] AesjktuBDQEGEBSFW1779-12-46 10:50:00 10.0[facility] HgubghwPHHSOHJAKB7376-56-17 10:50:0034.6[facility] HermannHEMATOLOGY 2019-01-23 10:50:0028.7[facility] WfukfdiWPYINAVLRZ8851-21-29 10:50:0087.8[facility] RwpjdglXWWNOKHSEJ7828-25-21 10:50:00 Test Item Value Reference Range Interpretation Comments MCH (test code = MCH) 30.4 pg 27.0-31.0 Memorial AbvozhgBHULAQRETT8256-24-02 10:50:003.27[facility] HermannCHEM PANEL 2019-01-22 11:32:002.4[facility] HermannCHEM RVSVA5055-41-86 11:32:002.4[facility] HermannCHEM ISIXA5800-34-80 09:04:003.0[facility] HermannCHEM ZOIQV2392-16-07 09:04:003.0[facility] HermannURINE AND OGGFL0854-15-03 07:14:00<1[facility] HermannURINE AND WTVXL7091-43-09 07:14:0025[facility] HermannURINE AND STOOL 2019-01-22 07:14:002[facility] [id number] 07:14:00Light Yellow *NA*(01/22/19 2:14 AM)[facility] [id number] 07:14:00 Clear (01/22/19 2:14 AM)[facility] [id number] 07:14:00 Test Item Value Reference Range Interpretation Comments UA Spec Grav (test code = UA Spec 1.014 1 Grav) [facility] [id number] 07:14:00 Test Item Value Reference Range Interpretation Comments UA pH (test code = UA pH) 6.0 1 5.0-8.0 [facility] [id number] 07:14:00Negative (01/22/19 2:14 AM) [facility] [id number] 07:14:00Negative *NA*(01/22/19 2:14 AM) [facility] [id number] 07:14:00Negative *NA*(01/22/19 2:14 AM) [facility] [id number] 07:14:00Negative *NA*(01/22/19 2:14 AM) [facility] [id number] 07:14:00Negative (01/22/19 2:14 AM) [facility] [id number] 07:14:00Negative (01/22/19 2:14 AM) [facility] [id number] 07:14:00Negative (01/22/19 2:14 AM) [facility] [id number] 07:14:00<1[facility] [id number] 07:14:0025[facility] [id number] 07:14:002 [facility] [id number] 07:14:00Light Yellow *NA*(01/22/19 2:14 AM)[facility] [id number] 07:14:00Clear (01/22/19 2:14 AM) [facility] [id number] 07:14:00 Test Item Value Reference Range Interpretation Comments UA Spec Grav (test code = UA Spec 1.014 1 Grav) [facility] [id number] 07:14:00 Test Item Value Reference Range Interpretation Comments UA pH (test code = UA pH) 6.0 1 5.0-8.0 [facility] [id number] 07:14:00Negative (01/22/19 2:14 AM) [facility] [id number] 07:14:00Negative *NA*(01/22/19 2:14 AM) [facility] [id number] 07:14:00Negative *NA*(01/22/19 2:14 AM) [facility] [id number] 07:14:00Negative *NA*(01/22/19 2:14 AM) [facility]UPCY6237[facility]19-76 07:14:00Negative (01/22/19 2:14 AM) [facility] MCEAO6891-16-76 07:14:00Negative (01/22/19 2:14 AM) [facility] USLPW2951-70-56 07:14:00Negative (01/22/19 2:14 AM) [facility] NsytusdFCVRV4846-54-49 05:16:000.90[facility] BchnqkeGPOSC6431-43-34 05:16:000.90[facility] AAZONMM5093-75-12 05:01:00Negative (01/22/19 12:01 AM)[facility] TPMWHMJ8040-15-00 05:01:00<0.02 [facility] QJGPHEW2902-62-91 05:01:0049[facility]annCHEM PANEL 2019-01-22 05:01:000.6[facility]annCHEM TFLHG6935-84-97 05:01:45479Ihuzigae HermannCHEM DWCHC5573-43-00 05:01:004.0[facility]annCHE[facility] TPHUW1151-36-60 05:01:0017[facility]annCHEM LAWHS4486-68-80 05:01:0025[facility]annCHE[facility] KJWNZ8319-12-36 05:01:008.1[facility]annCHEM AOYRO1361-56-69 05:01:00 Test Item Value Reference Range Interpretation Comments B/C Ratio (test code = B/C Ratio) 20 1 6-25 [facility] ZSOQW7839-51-50 05:01:00 Test Item Value Reference Range Interpretation Comments A/G Ratio (test code = A/G Ratio) 1.0 1 0.7-1.6 [facility]CHE[facility] FIEBG1951-48-58 05:01:004.1[facility]annCHEM PANEL 2019-01-22 05:01:006.90[facility] WixlwxgJMOINDDJAYVQW9619-84-00 05:01:00Negative *NA*(01/22/19 12:01 AM)[facility] SvxrmanHXCGJRFDUW6235-66-31 05:01:000.1[facility] FsfphqyMANFNUIYKX7760-19-55 05:01:000.7[facility] McraczaJTQRENUCYS5762-80-03 05:01:000.0[facility] RmmlqbeHNIHZBFMYK4859-11-91 05:01:000.0[facility] MCPFFJGUDK5693-19-17 05:01:000.9[facility] EvxhvcmTGLPUQFVDG4843-99-52 05:01:008.6 [facility] VqitocvEXPKYAAMUL1473-83-77 05:01:000.6[facility]annHEMATOLOGY 2019-01-22 05:01:0086.5[facility] ZwewdxvAHJGIEGVTK3635-20-70 05:01:005.7[facility] DgkgudwPFJKLAPHXJ4192-01-38 05:01:006.9[facility] NlzpjvwSPGYTVLUSH0897-39-05 05:01:009.9[facility] XpywqjbSPNOAUAFWN5235-54-89 05:01:0032.8[facility] AFCUXHRAUI1342-85-99 05:01:0013.6[facility] BmlzsrsPFQORHZPRD4835-66-04 05:01:00 443[facility] DjbxohqGEBCUTCIBZ4219-67-21 05:01:007.3[facility]annHEMATOLOGY 2019-01-22 05:01:0014.0[facility] PvqicwdXQZHCJNLWE1168-13-37 05:01:004.85[facility] WvxjpktMUOHAUHDVX8587-87-83 05:01:0042.7[facility] UmflvrbCPXKCHBLJX8623-43-43 05:01:00 Test Item Value Reference Range Interpretation Comments MCH (test code = MCH) 29.0 pg 27.0-31.0 [facility] MxwavaoDLFMTQKMCB5398-10-23 05:01:0088.2[facility]annHEMATOLOGY 2019-01-22 05:01:00 Test Item Value Reference Range Interpretation Comments INR (test code = INR) 0.96 1 0.85-1.17 [facility] KgsgjmqPKAVXTQPTG1361-36-42 05:01:00 Test Item Value Reference Range Interpretation Comments PT (test code = PT) 12.6 s 12.0-14.7 [facility]JprblmtMGCEJXBTUO3329-72-65 05:01:00 Test Item Value Reference Range Interpretation Comments PTT (test code = PTT) 25.9 s 22.9-35.8 [facility] BSUPDYF3671-07-13 05:01:00Negative (01/22/19 12:01 AM) [facility]CARD[facility] TPBQIDR9033-01-88 05:01:00<0.02[facility] CARDIAC GWTLNML0938-57-67 05:01:0049[facility]annCHEM PSRCA4039-05-15 05:01:000.6[facility]annCHEM XKNIP9830-30-76 05:01:82959Xmizdlvy HermannCHEM BJEIA8827-47-31 05:01:004.0[facility]annCHEM KDDKX2006-55-26 05:01:0017 [facility]annCHE[facility] DWKWX3582-02-15 05:01:0025[facility]annCHEM PANEL 2019-01-22 05:01:008.1[facility]annCHEM CDKFG0134-00-53 05:01:00 Test Item Value Reference Range Interpretation Comments B/C Ratio (test code = B/C Ratio) 20 1 6-25 [facility]annCHE[facility] ZTJDU4315-28-43 05:01:00 Test Item Value Reference Range Interpretation Comments A/G Ratio (test code = A/G Ratio) 1.0 1 0.7-1.6 [facility]annCHE[facility] FYUNK8745-15-15 05:01:004.1[facility]annCHEM PANEL 2019-01-22 05:01:006.90[facility] IyjwwrhFMVGUGLKINFXB0004-36-54 05:01:00Negative *NA*(01/22/19 12:01 AM)[facility] UlocpneOMJTHYOGGX1673-51-85 05:01:000.1[facility] UslzfhhOSOPTRLNXA1755-08-45 05:01:000.7[facility] HbmcywhHOWHBWAOCY4792-21-83 05:01:000.0[facility] JqmhzpjFEHUUOJHKH1123-35-77 05:01:000.0[facility] VRCGRLVEPM9376-54-96 05:01:000.9[facility] GfnabsvXAALQRFLGP8079-76-71 05:01:008.6 [facility] XhjdouaKXULULRTXH0032-87-16 05:01:000.6[facility]annHEMATOLOGY 2019-01-22 05:01:0086.5[facility] VwsdybzPIGMQPZZSY2222-66-50 05:01:005.7[facility] YxxhcyvANAOTAZHEP6026-93-91 05:01:006.9[facility] FdbbvwbXJQQCXIRLF0296-34-50 05:01:009.9[facility] MfqwstbPUUGVDLKPD1124-21-93 05:01:0032.8[facility] TLKBLLRWKU1285-52-36 05:01:0013.6[facility] XmkgqaaCBGIODHGNN8295-34-64 05:01:00 443[facility] NdbtwamBWHOIAQTCP2367-76-07 05:01:007.3[facility]annHEMATOLOGY 2019-01-22 05:01:0014.0[facility] GezguywUVSIFGDKMT1872-00-28 05:01:004.85[facility] BoupvipRJKIKZJFJE9895-75-85 05:01:0042.7[facility] LiedicrZVPBNEOQSZ1872-22-28 05:01:00 Test Item Value Reference Range Interpretation Comments MCH (test code = MCH) 29.0 pg 27.0-31.0 [facility] HospitalZuregnhBWBYOLLJAX0855-97-69 05:01:0088.2[facility]annHEMATOLOGY 2019-01-22 05:01:00 Test Item Value Reference Range Interpretation Comments INR (test code = INR) 0.96 1 0.85-1.17 [facility]yx[facility]EWATYIIIJP5924-67-47 05:01:00 Test Item Value Reference Range Interpretation Comments PT (test code = PT) 12.6 s 12.0-14.7 [facility]ATALVFBSVH9408-67-46 05:01:00 Test Item Value Reference Range Interpretation Comments PTT (test code = PTT) 25.9 s 22.9-35.8 [facility]Ns[facility]ouxyABT9H3107-23-83 14:36:00 Test Item Value Reference Range Interpretation [...] 0.00-0.01 N code = ETOHU) Comprehensive Metabolic Nwvix0985-03-99 14:36:00 Test Item Value Reference Range Interpretation [...] the [employer],http ://nkd ep.nih.gov Urinalysis Mtzggusb5482-01-67 14:32:00 Test Item Value Reference Range Interpretation Comments Color (test code = COLOR) Yellow Yellow,Straw,Pl N yellow Clarity (test code = Clear Clear N CLAR) Specific [place] (test 1.024 1.001-1.035 N code = SPGR) [...] code = Few /HPF BACT) CBC with Prwocflperhf7669-95-10 14:21:00 Test Item Value Reference Range Interpretation [...] code = ALYMPH) 3.0 K/cumm 0.5-4.6 N [place] Abs (test code = AMONO) 0.5 K/cumm 0.0-1.2 N Eos Abs (test code = AEOS) 0.19 K/cumm 0.00-0.74 N Baso Abs (test code = ABASO) 0.1 K/cumm 0.00-0.21 N
== END 2021-08-29 22:23 | disposition home or self-care (01) ==
LOC: ER 18:45
DX: R06.00 Dyspnea, unspecified (principal); F31.9 Bipolar disorder, unspecified; Z88.5 Allergy status to narcotic agent; Z88.8 Allergy status to other drugs, medicaments and biological substances
CPT/HCPCS: 93005; 36415; 84484; 80307; 71275; 71045; 99284; Q9967; J7040; J7030

== ENCOUNTER 2021-09-02 05:52 | Emergency (ER) | payer OTHER ==
[2021-09-02] MEDS ORDERED: NA CHLORIDE 0.9% 1,000 ML ONE ×2 (06:17→12:23)
[2021-09-02 06:24] LABS: Absolute Lymphocytes (CBC) 1.4 K/uL (0.7-4.9); Basophils % 0.6 % (0-1.3); Hematocrit 38.5 % (36.0-45.0); Lymphocytes % 16.5 % (15.3-44.8); MPV 7.6 fL (7.6-11.3); RBC Red Blood Cell Count 4.52 M/uL (3.86-4.86)
[2021-09-02] MEDS ORDERED: LORazepam 2 MG/ML VIAL ONE ×2 (06:25→08:50)
[2021-09-02 06:39] LABS: Protime INR 1.01
[2021-09-02 06:48] LABS: ALT/SGPT 25 U/L (12-78); AST/SGOT 22 U/L (15-37); Albumin 3.7 g/dL (3.4-5.0); Alkaline Phosphatase 83 U/L (45-117); BUN Blood Urea Nitrogen 9 mg/dL (7-18); Bicarbonate 21 mmol/L (21-32); Bilirubin Direct 0.2 mg/dL (0-0.2); Bilirubin Total 0.7 mg/dL (0.2-1.0); Glucose Level 105 mg/dL (74-106); Protein, Total 7.3 g/dL (6.4-8.2); Sodium Level 140 mmol/L (136-145)
[2021-09-02 07:03] LABS: Salicylates Level 4.3 mg/dL (2.8-20)
[2021-09-02 07:18] LABS: Lithium < 0.2 mmol/L (0.6-1.2)
[2021-09-02] MEDS ORDERED: POTASSIUM 25 MEQ EFFERV TAB ONE (08:11)
[2021-09-02] MEDS ORDERED: KCL 20 MEQ/100 mL IVPB 20 MEQ/100 ML BAG IV ONE (08:11)
[2021-09-02] MEDS ORDERED: NA CHLORIDE 0.9% 250 ML ONE (08:11)
[2021-09-02 11:56] LABS: Urine Blood Negative (Negative); Urine Glucose Negative (Negative); Urine Protein Negative (Negative); Urine Specific Gravity >=1.030 (1.005-1.030)
[2021-09-02 12:39] LABS: Barbiturates NEGATIVE (NEGATIVE); Benzodiazepines POSITIVE (NEGATIVE); Cocaine NEGATIVE (NEGATIVE); METHAMPHETAM POSITIVE (NEGATIVE); Methadone NEGATIVE (NEGATIVE); Opiates NEGATIVE (NEGATIVE); Phencyclidine NEGATIVE (NEGATIVE); THC Cannibis NEGATIVE (NEGATIVE)
--- NOTE | 2021-09-02 14:32 | ER ---
Nurse's Notes [facility] Name: Tiffany Quinn Age: 51 yrs Sex: Female : 1970 Arrival Date: 09/02/2021 Time: 05:59 Bed 7 Private MD: Diagnosis: Adverse effect of amphetamines Presentation: 09/02 06:03 Chief complaint: Patient states: Pt states "I ate $10 of Meth." EMS states pt was df1 rolling on floor and screaming. Pt given 2.5 mg Versed IM to relax pt. Coronavirus screen: Vaccine status: Patient reports receiving the 2nd dose of the covid vaccine. Client denies travel out of the [place] in the last 14 days. At this time, the client does not indicate any symptoms associated with coronavirus-19. Ebola Screen: Patient negative for fever greater than or equal to 101.5 degrees Fahrenheit, and additional compatible Ebola Virus Disease symptoms Patient denies exposure to infectious person. Patient denies travel to an Ebola-affected area in the 21 days before illness onset. Initial Sepsis Screen: Does the patient meet any 2 criteria? No. Patient's initial sepsis screen is negative. Does the patient have a suspected source of infection? No. Patient's initial sepsis screen is negative. Risk Assessment: Do you want to hurt yourself or someone else? Patient reports no desire to harm self or others. Onset of symptoms was September 02, 2021. 06:03 Method Of Arrival: EMS: [facility] df1 06:03 Acuity: MANUEL 3 df1 Triage Assessment: 06:09 General: Appears uncomfortable, unkempt, Behavior is cooperative, agitated, anxious. df1 Pain: Denies pain. 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 - Social history:: Smoking status: Patient reports use of chewing tobacco. Patient uses alcohol, street drugs, Methamphetamine (Meth). Screenin:08 Abuse screen: Denies threats or abuse. Nutritional screening: No deficits noted. df1 Tuberculosis screening: No symptoms or risk factors identified. Fall Risk None identified. Assessment: 06:12 General: Appears unkempt, Behavior is anxious, restless. General: Patient is exhibiting tw5 a flight of ideas. Neuro: Level of Consciousness is awake, alert, confused, Oriented to person, place, " I am here because I thought I was having a stroke, I took ten dollars worth of meth, I had bought 20 dollars worth, I saved half because sometimes you can take it in the EMS, it is legal with the workers, you can actually get it prescribed.". 07:53 Reassessment: RN coming on shift checked on patient. Pt. is breathing normally, jt3 respirations equal and unlabored. Pt. is sleeping. . 09:21 Reassessment: Pt. had an IV in her right bicep that had infiltrated. Bill WHITTAKER jt3 notified. IV removed and compression was placed on the hematoma. Pt. had a bruise 4 inches from the IV site, but per patient that is an old bruise. New IV attempted x2. Patient pulled away once and IVs were unsuccessful. utility lineman notified and is trying for an IV. . 10:05 Reassessment: New IV started in foot by utility lineman. Ativan was given. Pt. is now resting jt3 in bed. VSS. . 11:01 Reassessment: Pt. is resting after second dose of ativan. VSS. . jt3 14:39 Reassessment: Pt. is ambulatory and steady on her feet. Pt. used the restroom jt3 independently. . Overdose: 06:08 [place] Suicide Severity Screening: "In the past month, have you wished you were df1 or wished you could go to sleep and not wake up?" Patient responds "no." "In the past month, have you actually had any thoughts of killing yourself?" Patient responds "no." "In your lifetime, have you ever done anything, started to do anything, or prepared to do anything to end your life?" Patient responds "no.". 06:08 [place] Suicide Severity Screening: "In the past month, have you actually had any df1 thoughts of killing yourself?" Patient responds "yes." Based off client's responses, additional C-SSRS screening questions required. Vital Signs: 06:03 BP 133 / 113; Pulse 89; Resp 20; Temp 99.3(O); Pulse Ox 96% on R/A; Weight 68.04 kg; df1 Height 5 ft. 2 in. (157.48 cm); Pain 0/10; 06:50 BP 135 / 87; Pulse 78; Resp 18; Temp 98.8; Pulse Ox 97% on R/A; Pain 1/10; mr2 07:53 BP 143 / 86; Pulse 72; Resp 17; Pulse Ox 97% on R/A; jt3 09:42 BP 126 / 90; Pulse 80; Resp 16 S; Pulse Ox 96% on R/A; iw 11:00 BP 139 / 76; Pulse 72; Resp 15; Pulse Ox 100% on R/A; jt3 12:27 BP 144 / 91; Pulse 66; Resp 17; Pulse Ox 100% on R/A; jt3 13:38 BP 142 / 93; Pulse 68; Resp 17; Pulse Ox 100% on R/A; jt3 14:40 BP 158 / 83; Pulse 67; Resp 17; Pulse Ox 99% on R/A; jt3 06:03 Body Mass Index 27.44 (68.04 kg, 157.48 cm) df1 ED Course: 05:59 Patient arrived in ED. bb 06:06 Bill Hay PA is PHCP. cp 06:06 Manuel Ward MD is Attending Physician. cp 06:07 Triage completed. df1 06:09 Arm band placed on right wrist. df1 06:10 Patient has correct armband on for positive identification. Placed in gown. Bed in low df1 position. Call light in reach. Side rails up X 1. tire finisher on. Pulse ox on. NIBP on. 06:10 No provider procedures requiring assistance completed. df1 06:12 Visitors limited. tw5 06:12 Inserted saline lock: 18 gauge in right upper arm, using aseptic technique. Blood tw5 collected. 06:18 Appears restless. tw5 06:19 Acetaminophen Sent. df1 06:20 Sheri Young is Primary Nurse. tw5 06:20 Basic Metabolic Panel Sent. df1 06:20 CBC with Diff Sent. df1 06:20 ETOH Level Sent. df1 06:20 Hepatic Function Sent. df1 06:20 PT-INR Sent. df1 06:20 Ptt, Activated Sent. df1 06:20 Salicylate Sent. df1 06:20 Urine Drug Screen Sent. df1 06:21 [place] Sent. df1 07:30 Goran Bledsoe MD is Attending Physician. cp 09:42 Inserted saline lock: 22 gauge in right ,using aseptic technique. foot. iw 14:46 IV discontinued, intact, bleeding controlled, No redness/swelling at site. Pressure iw dressing applied. Administered Medications: 06:20 Drug: NS 0.9% 500 ml Route: IV; Rate: bolus; Site: right upper arm; df1 06:20 Drug: NS 0.9% 500 ml Route: IV; Rate: 125 ml/hr; Site: right upper arm; df1 06:20 CANCELLED (Physician Discretion): Ativan (LORazepam) 1 mg IVP once cp 06:49 Drug: Ativan (LORazepam) 1 mg Route: IVP; Site: left upper arm; mr2 11:00 Follow up: Response: No adverse reaction; Anxiety decreased jt3 08:21 Drug: Potassium Chloride 20 mEq Route: IV; Rate: calculated rate; Site: right jt3 antecubital; 08:21 Drug: Potassium Effervescent Tablet 50 mEq Route: PO; jt3 11:00 Follow up: Response: No adverse reaction; Anxiety decreased jt3 09:42 Drug: Ativan (LORazepam) 1 mg {Note: right foot.} Route: IVP; Site: Other; iw 11:01 Follow up: Response: No adverse reaction jt3 11:47 Drug: NS 0.9% 1000 ml Route: IV; Rate: 125 ml/hr; Site: Other; jt3 Outcome: 14:32 Discharge ordered by . cp 14:46 Discharged to home ambulatory. iw 14:46 Condition: good 14:46 Discharge instructions given to patient, Instructed on discharge instructions, follow up and referral plans. Demonstrated understanding of instructions, follow-up care. 14:46 Patient left the ED. iw Signatures: Keena Lazaro RN RN bb Chante Warner RN RN iw Page, Bill, PA Teddy Gutiérrez cp RN RN mr2 Tiffanie Weber df1 Sheri Young tw5 Lemuel Capone RN RN jt3
--- NOTE | 2021-09-02 14:33 | EDPHYS ---
Physician Documentation [facility] Name: Tiffany Quinn Age: 51 yrs Sex: Female : 1970 Arrival Date: 09/02/2021 Time: 05:59 Bed 7 Private MD: ED Physician Goran Bledsoe HPI: 09/02 06:20 This 51 yrs old Female presents to ER via EMS with complaints of Drug Abuse. cp 06:20 The patient presents to the emergency department with a history of substance abuse, cp Type: methamphetamine. 06:20 Onset: The symptoms/episode began/occurred this morning. Past psychiatric history: cp Prior diagnosis: addiction history, methamphetamine, bipolar disorder, Psychiatric medications include: Kennard. Associated signs and symptoms: Pertinent positives; delusions, substance abuse, Pertinent negatives: abdominal pain, chest pain, fever, homicidal ideation, suicide ideation. Severity of symptoms: in the emergency department the symptoms have improved mildly. The patient has experienced similar episodes in the past, multiple times. 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 - Social history:: Smoking status: Patient reports use of chewing tobacco. Patient uses alcohol, street drugs, Methamphetamine (Meth). ROS: 06:25 Constitutional: Negative for body aches, chills, fever, poor PO intake. cp 06:25 Eyes: Negative for injury, pain, redness, and discharge. cp 06:25 Cardiovascular: Negative for chest pain. 06:25 Respiratory: Negative for cough, shortness of breath, wheezing. 06:25 Abdomen/GI: Negative for abdominal pain, vomiting, diarrhea, constipation. 06:25 Psych: Negative for homicidal ideation, suicide gesture, suicidal ideation. 06:25 All other systems are negative. cp Exam: 06:30 ECG was reviewed by the Attending Physician. cp 06:33 Constitutional: The patient appears alert, awake, non-diaphoretic, non-toxic, well cp developed, well nourished. 06:33 Head/Face: Normocephalic, atraumatic. cp 06:33 Eyes: Periorbital structures: appear normal, Pupils: equal, round, and reactive to light and accomodation, Extraocular movements: intact throughout, Conjunctiva: normal, no exudate, no injection, Sclera: no appreciated abnormality, Lids and lashes: appear normal, bilaterally. 06:33 ENT: External ear(s): are unremarkable, Nose: is normal, Mouth: Lips: moist, Oral mucosa: moist, Posterior pharynx: Airway: no evidence of obstruction, patent. 06:33 Neck: C-spine: vertebral tenderness, is not appreciated, crepitus, is not appreciated, ROM/movement: is normal, is supple, without pain, no range of motions limitations, no meningismus. 06:33 Chest/axilla: Inspection: normal, Palpation: is normal, no crepitus, no tenderness. 06:33 Cardiovascular: Rate: normal, Rhythm: regular, Edema: is not appreciated, JVD: is not appreciated. 06:33 Respiratory: the patient does not display signs of respiratory distress, Respirations: normal, no use of accessory muscles, no retractions, labored breathing, is not present, Breath sounds: are clear throughout, no decreased breath sounds, no stridor, no wheezing. 06:33 Abdomen/GI: Inspection: abdomen appears normal, Bowel sounds: active, all quadrants, Palpation: abdomen is soft and non-tender, in all quadrants. 06:33 Back: pain, is absent, ROM is normal. 06:33 Neuro: Orientation: to person, situation, Mentation: able to follow commands, Motor: moves all fours, strength is normal, Sensation: no obvious gross deficits. 06:33 Psych: Behavior/mood is cooperative, anxious, Affect is animated, Judgement / Insight is impaired. Delusions/hallucinations are not present. Vital Signs: 06:03 BP 133 / 113; Pulse 89; Resp 20; Temp 99.3(O); Pulse Ox 96% on R/A; Weight 68.04 kg; df1 Height 5 ft. 2 in. (157.48 cm); Pain 0/10; 06:50 BP 135 / 87; Pulse 78; Resp 18; Temp 98.8; Pulse Ox 97% on R/A; Pain 1/10; mr2 07:53 BP 143 / 86; Pulse 72; Resp 17; Pulse Ox 97% on R/A; jt3 09:42 BP 126 / 90; Pulse 80; Resp 16 S; Pulse Ox 96% on R/A; iw 11:00 BP 139 / 76; Pulse 72; Resp 15; Pulse Ox 100% on R/A; jt3 12:27 BP 144 / 91; Pulse 66; Resp 17; Pulse Ox 100% on R/A; jt3 13:38 BP 142 / 93; Pulse 68; Resp 17; Pulse Ox 100% on R/A; jt3 14:40 BP 158 / 83; Pulse 67; Resp 17; Pulse Ox 99% on R/A; jt3 06:03 Body Mass Index 27.44 (68.04 kg, 157.48 cm) df1 MDM: 06:10 Patient medically screened. cp 07:00 Differential diagnosis: drug withdrawal. acute psychotic break, psychosis secondary to cp non-compliance, illegal drug use. 14:30 Data reviewed: vital signs, nurses notes, lab test result(s), EKG. 14:30 Test interpretation: by ED physician or midlevel provider: ECG. Counseling: I had a cp detailed discussion with the patient and/or guardian regarding: the historical points, exam findings, and any diagnostic results supporting the discharge/admit diagnosis, lab results, the need for outpatient follow up, a psychiatrist, to return to the emergency department if symptoms worsen or persist or if there are any questions or concerns that arise at home. Response to treatment: the patient's symptoms have markedly improved after treatment, VSS. Patient alert, ambulates in ED w/o assistance. Patient denies suicidal and/or homicidal ideations. Will discharge to home for continued monitoring. 09/02 06:10 Order name: Acetaminophen; Complete Time: 06:51 cp 09/02 06:10 Order name: Basic Metabolic Panel; Complete Time: 06:51 cp 09/02 08:07 Interpretation: Normal except: K 3.0; GFR 87. cp 09/02 06:10 Order name: CBC with Diff; Complete Time: 06:51 cp 09/02 08:08 Interpretation: Normal except: WBC 8.50; MIRIAM% 76.1. 09/02 06:10 Order name: ETOH Level; Complete Time: 06:51 cp 09/02 06:10 Order name: Hepatic Function; Complete Time: 06:51 cp 09/02 06:10 Order name: PT-INR; Complete Time: 06:51 cp 09/02 06:10 Order name: Ptt, Activated; Complete Time: 06:51 cp 09/02 06:10 Order name: Salicylate; Complete Time: 08:07 cp 09/02 06:10 Order name: Urine Drug Screen; Complete Time: 14:30 cp 09/02 06:10 Order name: [place]; Complete Time: 08:07 cp 09/02 08:07 Interpretation: LI < 0.2; Reviewed. 09/02 11:57 Order name: Urine Dipstick-Ancillary; Complete Time: 12:32 EDMS 11 12:32 Interpretation: Normal except: UKET 4+. 09/02 06:10 Order name: EKG - Nurse/Tech; Complete Time: 06:29 09/02 06:10 Order name: IV Saline Lock; Complete Time: 06:16 cp 09/02 06:10 Order name: Labs collected and sent; Complete Time: 06:16 cp 09/02 06:10 Order name: Urine Dipstick-Ancillary (obtain specimen); Complete Time: 12:27 09/02 11:45 Order name: Cath; Complete Time: 12:03 09/02 13:23 Order name: Misc. Order: ambulate patient; Complete Time: 14:46 cp EC:30 Rate is 95 beats/min. Rhythm is regular. AK interval is normal. QRS interval is normal. cp QT interval is normal. Interpreted by me. Reviewed by me. Administered Medications: 06:20 Drug: NS 0.9% 500 ml Route: IV; Rate: bolus; Site: right upper arm; df1 06:20 Drug: NS 0.9% 500 ml Route: IV; Rate: 125 ml/hr; Site: right upper arm; df1 06:20 CANCELLED (Physician Discretion): Ativan (LORazepam) 1 mg IVP once cp 06:49 Drug: Ativan (LORazepam) 1 mg Route: IVP; Site: left upper arm; mr2 11:00 Follow up: Response: No adverse reaction; Anxiety decreased jt3 08:21 Drug: Potassium Chloride 20 mEq Route: IV; Rate: calculated rate; Site: right jt3 antecubital; 08:21 Drug: Potassium Effervescent Tablet 50 mEq Route: PO; jt3 11:00 Follow up: Response: No adverse reaction; Anxiety decreased jt3 09:42 Drug: Ativan (LORazepam) 1 mg {Note: right foot.} Route: IVP; Site: Other; iw 11:01 Follow up: Response: No adverse reaction jt3 11:47 Drug: NS 0.9% 1000 ml Route: IV; Rate: 125 ml/hr; Site: Other; jt3 Disposition: 16:20 Co-signature as Attending Physician, Goran Bledsoe MD. pkl Disposition Summary: 09/02/21 14:32 Discharge Ordered Location: Home cp Problem: an ongoing problem cp Symptoms: have improved cp Condition: Stable cp Diagnosis - Adverse effect of amphetamines cp Followup: cp - With: Private Physician - When: 1 - 2 days - Reason: Recheck today's complaints Discharge Instructions: - Discharge Summary Sheet cp - Methamphetamines Use Disorder cp Forms: - Medication Reconciliation Form cp - Thank You Letter cp - Antibiotic Education cp - Prescription Opioid Use cp Signatures: Dispatcher [employer] EDGoran Hull MD MD pkl Chante Warner RN RN iw Manuel Ward MD MD rn Page, Corey, PA PA cp Teddy Coleman RN RN mr2 Tiffanie Weber df1 Lemuel Capone RN RN jt3 Corrections: (The following items were deleted from the chart) 06:13 06:10 Suicide Screening ([place]) ordered. cp df1 06:19 06:10 Urine Test ordered. cp df1 06:20 06:20 Ativan (LORazepam) 1 mg IVP once ordered. cp cp 08:08 08:08 Normal except: WBC 8.50. cp cp
[2021-09-02 15:49] VITALS: TEMP 98.8
[2021-09-02 15:57] VITALS: BP 158/83; O2SAT 99
--- OUTSIDE RECORDS SUMMARY | 2021-09-06 17:45 | XMS REPORT | Continuity of Care Document ---
:1970 Author Organization [facility] t Address [address] [place] [address] Care Team Providers Name Role Phone UNKNOWN [...] oria 3 01:52:00 l LOW PB 00:00: [place] 00 Active 01/21/2019 [facility] INFECTIOUS Diagnosis Active 2019-02-06 Memoria GASTROENTE 330 08:58:00 l RITIS AND 00:00: [place] COLITIS INFECTIOUS 00 GASTROENTE RITIS AND COLITIS Active 01/21/2019 [facility] Irregular Irregular Disease Active Uni vers menstrual menstrual 8-15 ity of cycle cycle 00:00: [address] Skin Skin Disease Active Univers lesion lesion 8-15 ity of 00:00: [address] Psychiatri Psychiatri Disease Active U nivers c disorder c disorder 8-15 it y of 00:00: [address] Well woman Well woman Disease Active U kavita exam with exam with 8-15 ity of routine routine 00:00: [place] gynecologi gynecologi 00 Me dical nicky exam nicky exam Branch INFECTIOUS Diagnosis Active 2019-02-06 Memoria GASTROENTE 08:58:00 winifred WALTON AND Yonis COLITIS, INFECTIOUS GASTROENTE RITIS AND COLITIS, Active [facility] Allergies, Adverse Reactions, Alerts Allergy Allergy Status Severity Reaction(s) Onset Inactive Treating Comm ents Source Name Type Date Date Clinician NO KNOWN Drug Active Univers ALLERGIE Class ity of S [facility] Phenerga Phenerga Active Memori a n n l Yonis Social History Social Habit Start Date Stop Date Quantity Comments Source [facility] of C[facility] Tobacco Comment 2-3 cigs a day [facility] Exposure to Not sure [facility] SARS-CoV-2 [facility] (event) [place] Tobacco use and 2016-06-08 2016-06-08 Never used [facility] y of exposure 00:00:00 00:00:00 [facility] Alcohol intake 2016-06-08 2016-06-08 Current University 00:00:00 00:00:00 non-drinker of [facility] alcohol (finding) Branch Smoking Status Start Date Stop Date Source Social History 2019-01-22 05:00:12 [facility] Current some day smoker 2016-06-08 00:00:00 [facility] Medications Ordered Filled Start Stop Current Ordering Indication Dosage Frequency Signature Comments Components Source Medication Medication Date Date Medication? Clinician (SIG) Name Name ondansetron 2019-10 2020- No 4mg 4 mg, [facility] ers (ZOFRAN-ODT 2-05 05- Oral, ity of ) 15:15: 14:16 ONCE, 1 [place] disintegrat 00 :00 dose, Mon Med ical ing tablet 09/30/20 at [facility] 4 mg 0915, Routine ondansetron 2019-10 2020- No 4mg 4 mg, [facility] ers (ZOFRAN-ODT 2-05 05- Oral, ity of ) 14:30: 13:32 ONCE, 1 [place] disintegrat 00 :00 dose, Mon Med ical ing tablet 09/30/20 at [facility] 4 mg 0830, Routine ondansetron 2019-10 Yes [id number] 4mg Take 1 Univers 4 mg 2-07 tablet by ity of disintegrat 00:00: mouth [place] ing tablet 00 every 8 Medica l (eight) Branch hours as needed for Nausea and Vomiting (N/V). ciprofloxac 2019- Yes 500 mg = 1 Memoria in 500 mg 4-04 tab, PO, l oral tablet 17:35: PSLP25C, X Yonis 00 4 day, # 8 tab, 0 Refill(s) Ondansetron 2018- Yes 4 mg = 1 Me moria 4 MG Oral 4-04 tab, PO, l Tablet 17:35: Q6H, PRN [place] [Zofran] 00 Nausea/Vom iting, # 20 tab, [...] 4-04 tab, PO, l oral tablet 17:35: KQKZ36I, X [place] 00 4 day, # 8 tab, 0 [...] s with feeding tube less than 14 [place] (Dobhoff, J-tube etc) and pediatric and patients. [...] s with feeding tube less than 14 [place] (Dobhoff, J-tube etc) and pediatric and patients. [...] Memoria 4-01 Route: PO, l 22:00: QPM, [place] Dosing Weight 75, kg, Start date: 01/23/19 [...] Memori a 01-23 interfere l 15:00: w/enteral [place] 00 feedings - Take 1 hr before [...] PO, ONCE, l mEq oral 14:20: 0 [place] tablet, 00 Refill(s) extended release Metronidazo No 500 mg, Mem oria le 500 MG 4-01 PO, l Oral Tablet 14:20: ABXQ8H, 0 H ermann [Flagyl] 00 Refill(s) Ciprofloxac No 500 mg, Mem oria in 500 MG 4-01 PO, l Oral Tablet 14:20: CBLH30L, 0 Yonis [Cipro] 00 Refill(s) potassium Yes 40 mEq, Memor ia chloride 20 4-01 PO, ONCE, l mEq oral 14:20: 0 [place] tablet, 00 Refill(s) extended release Metronidazo No 500 mg, Mem oria le 500 MG 4-01 PO, l Oral Tablet 14:20: ABXQ8H, 0 H ermann [Flagyl] 00 Refill(s) Ciprofloxac No 500 mg, Mem oria in 500 MG 4-01 PO, l Oral Tablet 14:20: EXUH90H, 0 Yonis [Cipro] 00 Refill(s) Potassium No Notes: Memori a Chloride 01-23 (Same as: l 14:17: K-Dur 20) [place] "Do Not Crush" Give with food and full glass of water For patients unable to swallow tablet, dissolve in one half glass of water. Allow about 2 minutes for the tablets to disintegra te. Stir before giving to prepare slurry and administer . Please exclude Patient s with feeding tube less than 14 [place] (Dobhoff, J-tube etc) and pediatric and patients. [...] s with feeding tube less than 14 [place] (Dobhoff, J-tube etc) and pediatric and patients. [...] oria 3-31 to exceed l 15:03: 400mg/day. [place] (Same As: Ultram) normal No 1,000 mL, [...] 3-31 Route: IM, l 09:47: Drug form: [place] 00 PDR/INJ, PRN, Dosing Weight 75.994, kg, PRN Blood Glucose Results, Start date: 01/22/19 4:47:00 CDT, Duration: 30 day, Stop date: 02/21/19 4:46:00 CDT Dextrose 2019-0 No 12.5 gm, Memor ia 50% Syringe 3-31 25 mL, l 09:47: Route: [place] 00 IVP, Drug Form: INJ, Dosing Weight [...] Memoria 3-31 (Same as: l 08:56: Zofran) [place] 00 MEDICATION WASTE Product Size: 4 mg Product Wasted: ___ mg Zofran No Notes: Memoria 3-31 (Same as: l 08:56: Zofran) [place] 00 MEDICATION WASTE Product Size: 4 mg [...] moria IV 3-31 1,000 l 08:52: ml/hr, [place] 00 Infuse Over: 1 hr, Route: IV, [...] moria IV 3-31 1,000 l 05:44: ml/hr, [place] 00 Infuse Over: 1 hr, Route: IV, 1,000, Drug form: INJ, ONCE, Priority: STAT, Dosing Weight 75.994 kg, Start date: 01/22/19 0:44:00 CDT, Stop date: 01/22/19 0:44:00 CDT Zofran No Notes: Memoria 3-31 (Same as: l 04:52: Zofran) MEDICATION WASTE Product Size: 4 mg Product Wasted: ___ mg Saline No Notes: Memoria Flush 0.9% 3-31 Same as: l 04:52: BD [place] 00 Posiflush Sterile Zofran No Notes: Memoria [...] tablet by ity of HYDROCHLORI 00:00: mouth [place] DE,) 4 mg 00 every 8 Medical tablet (eight) Branch hours. ibuprofen Yes 200mg Take 200 Uni vers (ADVIL) 200 8-15 mg by ity of mg tablet 19:02: mouth [place] 27 every 6 Medical (six) Branch hours as needed. CLONAZEPAM Yes Take by Uni vers (KLONOPIN 8-15 mouth. ity of ORAL) 19:02: [place] 27 Medical Branch CITALOPRAM Yes Take by Uni vers HYDROBROMID 8-15 mouth. ity of E 19:02: [place] (CITALOPRAM 27 Medical ORAL) Branch misoprostol Yes [...] H it y of en-caff 00:00: PRN. [place] (ESGIC) 00 Medical 50-325-40 Branch mg tablet dextroamphe Yes TK 1 T PO U nivers tamine-amph 7-20 BID. ity of etamine 00:00: [place] (ADDERALL) 00 Medical 20 mg Branch tablet amoxicillin 2014-10 Yes 500mg Take 1 Cap Univers (TRIMOX) 1-16 by mouth 3 ity o f 500 mg 00:00: (three) [place] capsule 00 times Medical daily. Branch traMADOL 2014-10 Yes 50mg Take 1 Tab Uni vers (ULTRAM) 50 1-16 by mouth ity of mg tablet 00:00: every 6 [place] 00 (six) Medical hours as Branch needed for Pain (scale 4-6). naproxen 2015-1 Yes 500mg Take 1 Tab Un parul (NAPROSYN) 1-16 by mouth 2 ity of 500 mg 00:00: (two) [place] tablet 00 times Medical daily with Branch meals. Vital Signs Vital Name Observation Time Observation Value Comments Source Systolic blood 2020-09-30 14:00:00 126 mm[Hg] Univer sity of pressure [facility] Diastolic blood 2020-09-30 14:00:00 84 mm[Hg] Unive rsity of [facility] Heart rate 2020-09-30 14:00:00 79 /min Universi ty of [facility] Oxygen saturation in 2020-09-30 14:00:00 98 /min University of Arterial blood by [facility] Pulse oximetry Branch Body temperature 2020-09-30 13:26:00 37.22 Ruthann [facility] ersity of [facility] Respiratory rate 2020-09-30 13:26:00 16 /min Univ ersity of [facility] Body weight 2020-09-30 13:26:00 72.576 kg Universi ty of [facility] BMI 2020-09-30 13:26:00 28.80 kg/m2 Universi ty of [facility] Systolic blood 2020-09-30 14:00:00 126 mm[Hg] Univer sity of [facility] Diastolic blood 2020-09-30 14:00:00 84 mm[Hg] Unive rsity of [facility] Heart rate 2020-09-30 14:00:00 79 /min Universi ty of [facility] Branch Oxygen saturation in 2020-09-30 14:00:00 98 /min University of Arterial blood by [facility] Pulse oximetry Branch Body temperature 2020-09-30 13:26:00 37.22 Ruthann [facility] ersity of [facility] Branch Respiratory rate 2020-09-30 13:26:00 16 /min Univ ersity [facility] Body weight 2020-09-30 13:26:00 72.576 kg Universi ty of [facility] BMI 2020-09-30 13:26:00 28.80 kg/m2 Universi ty of [facility] Temperature Oral (F) 2019-01-28 01:16:00 98.6 F [facility] [place] Systolic (mm Hg) 2019-01-28 01:16:00 Estrada nadir [place] Diastolic (mm Hg) 2019-01-28 01:16:00 Mem orial [place] Heart Rate 2019-01-28 01:16:00 Memorial Yonis Respitory Rate 2019-01-28 01:16:00 Memori al [place] Systolic (mm Hg) 2019-01-27 20:42:00 Estrada rial [place] Diastolic (mm Hg) 2019-01-27 20:42:00 Mem orial Yonis Heart Rate 2019-01-27 20:42:00 Memorial Yon[place] Respitory Rate 2019-01-27 20:42:00 Memori al [place] Temperature Oral (F) 2019-01-27 20:42:00 98.5 F Memorial [place] Systolic (mm Hg) 2019-01-27 17:00:00 Estrada rial Yonis Diastolic (mm Hg) 2019-01-27 17:00:00 Mem orial [place] Temperature Oral (F) 2019-01-27 17:00:00 98.5 F Memorial [place] Heart Rate 2019-01-27 17:00:00 Memorial Yon[place] Respitory Rate 2019-01-27 17:00:00 Memori al [place]on[place] Height 2019-01-22 14:35:00 157.48 cm Memorial Yonis BMI Calculated 2019-01-22 14:35:00 Memori al [place] Weight 2019-01-22 14:35:00 [facility] [place] Weight 2019-01-22 04:34:00 [facility] [place] Procedures Procedure Date / Time Performed Performing Clinician Sourc e URINALYSIS 2020-09-30 13:27:00 Chuy Jackson o f [facility] ADC,CLC OR LCC ONLY - 2020-09-30 13:27:00 Chuy Jackson [facility] INFLUENZA A & B DIRECT Medical B ranch ANTIGEN COVID-19 (ID NOW RAPID 2020-09-30 13:27:[address] [facility] TESTING) Medical Branch Encounters Start End Encounter Admission Attending Care Care Encounter Source Date/Time Date/Time Type Type Clinicians Facility Department ID 2019-01-22 Inpatient E [facility] [id number] [facility] W 04:39:00 2020-09-30 2020-09-30 Emergency DENIA Jackson [id number] 07:22:00 08:18:00 Chuy Jimenez [id number] [place] [id number] [place] [id number] 2020-09-30 2020-09-30 Emergency [facility] [id number] Univers 07:22:00 08:18:00 Chuy Jimenez [id number] i Alyssa [id number] [facility] [id number] [place] [address] Branch 2020-09-30 2020-09-30 Emergency X [facility] ERT [id number] Univers 07:22:00 07:22:00 CHUY tubbs [facility] 2020-03-04 2020-03-14 Inpatient 3 [facility] PSY [id number] 15:38:00 15:25:00 [facility] 2019-01-22 2019-01-28 Inpatient [facility] [id number] Memoria 04:33:00 04:40:00 Yonis 00 l [facility] 2018-02-21 2018-02-20 Inpatient E [facility] MED [id number] 14:48:00 13:18:00 [facility] Results Test Description Test Time Test Comments Results Result Comments Source ADC,CLC OR LCC ONLY - INFLUENZA A & B DIRECT ANTIGEN 2020-09 14:04:00 Test Item Value Reference Range Interpretation Comme nts Influenza A (test code = 13820-2) Negative Negative Influenza B (test code = 86796-5) Negative Negative Lab Interpretation (test code = 30074-3) [facility]2020-09-30 14:03:00 Test Item Value Reference Range Interpretation Comments SARS-CoV-2 Rapid ID NOW Not Detected Not Detected (test code = 94408-7) PERRY (test code = PERRY) ID NOW COVID-19 Assay is an isothermal nucleic acid amplification test intended for the qualitative detection of nucleic acid from SARS-CoV-2 viral RNA in nasopharyngeal (SENIOR REVENUE ACCOUNTANT) specimens. It is used under Emergency [...] indicated. Lab Interpretation Normal (test code = 15290-4) [facility] 13:55:00 Test Item Value Reference Range Interpretation Comments APPEARANCE (test code = Hazy Clear A 9864003988) COLOR (test code = Yellow Yellow 1676253150) PH (test code = 4.8-8.0 0289937575) SP GRAVITY (test code = 1.003-1.030 6527064614) GLU U QUAL (test code = Normal Normal 1434594550) BLOOD (test code = Negative Negative 1897268924) KETONES (test code = 5 mg/dL Negative A 1026673961) PROTEIN (test code = Negative Negative 2887-8) UROBILIN (test code = 2.0 mg/dL Normal A 3517285656) BILIRUBIN (test code = Negative Negative 5597981396) NITRITE (test code = Negative Negative 4513858832) LEUK ROZINA (test code = 25/uL Negative A 1144960043) RBC/HPF (test code = See_Comment [Autom ated message] 8030456435) The system Revision3 generated this result transmit ngozi reference range : 0 - 3 HPF. The refe rence range was not u sed to interpret th is result as normal/abnormal . WBC/HPF (test code = See_Comment [Autom ated message] 2566506049) The system Revision3 generated this result transmit ngozi reference range : 0 - 5 HPF. The refe rence range was not u sed to interpret th is result as normal/abnormal . BACTERIA (test code = Few Negative A 4979743112) MUCOUS (test code = Slight Negative LPF A 8070025460) SQ EPITH (test code = HPF 4417503635) Lab Interpretation (test Abnormal code = 41006-0) [facility] Oijiohnjayl1572-83-62 16:42:24 Test Item Value Reference Range Interpretation [...] = 10-24-2020 N Expiration Dt) Thyroid Stimulating Ukmrpxg2820-45-36 08:35:16 Test Item Value Reference Range Interpretation Comments TSH (test code = TSH) 1.170 mIU/mL 0.270-4.200 Lipid Wjnow4077-37-03 08:21:19 Test Item Value Reference Range Interpretation Comments Cholesterol Total 254 mg/dL 0-200 H RISK OF HE ART (test code = DISEASEPublishe d by Cholesterol Total) Citizen Of [place] Heart [employer] Cathie lyte Optimal Borderl ine [...] calculation is LDL/HDL Ratio=L DL Calc/HDL Chol JUXNXJOJVRTL9308-37-32 08:24:008.6Memorial HhowhmpUQFBWBUOPSJI0717-34-94 08:24:46817Cplsbkja EopieioJSAMJRXONIJK0213-60-57 08:24:0027Memorial Yonis YICUYCKXTNMO6384-51-19 08:24:79122Wszhyybv BnokwbcJOSLLAFTGFVZ8034-76-67 08:24:003.6Memorial XvlkbkdSUVVIVELBZWC8896-39-54 08:24:000.70[facility] [place] QYAIMZRNLWIY0026-93-78 08:24:008.4Memorial HjgjtbeAFOYUVZQEXEY4621-91-90 08:24:55080Urnajkgb WldynznOSUOQDTJUINJ1299-49-07 08:24:0086Mem[facility] Yon[facility] PXSCPMRNHTOU0076-31-53 08:24:006Memorial XoyrphsNEFDRNMGXF9799-01-94 08:24:00 11.6Memorial HukzgomJOMJREYZMN8628-65-99 08:24:003.78[facility] HermannHEMATOLOGY 2019-01-26 08:24:0013.3Memorial LwwncjhAUMDSXKLCA2643-87-29 08:24:0034.0[facility]orial BrttybhISEKHYSIUG2575-59-97 08:24:006.3Memorial TcwvswyFJCFWIZUZQ8272-13-27 08:24:00 Test Item Value Reference Range Interpretation Comments MCH (test code = MCH) 30.7 pg 27.0-31.0 Memorial NnexfqvEDSFWYHSQT5346-01-01 08:24:0090.3[facility] HermannHEMATOLOGY 2019-01-26 08:24:0034.2Memorial YvkbgxkWOPVVRKDKG1903-80-11 08:24:55154Ruredjqj GqfqpvqDEOJTXWTZQ2429-44-88 08:24:007.5Memorial BkptonvWKRAAQTZYUQK8809-86-93 08:24:008.6Memorial IjkvbshOGZXEQTCKGUA0848-68-90 08:24:72005Wgefafag [place] JRVMLOWKVWPL2137-07-46 08:24:0027Memorial JpvdnnlECMUKJREAJEW0289-63-76 08:24:00 139Memorial CrkpoqgZSKVNFLGHKGR4922-26-12 08:24:003.6[facility]orial [place] QEXSQNPHWLFR1548-60-26 08:24:000.70Memorial WbjjtxvWVAUTMQJXPWA1013-38-04 08:24:008.4Memorial IudzfvlVWXTXOIDIOYU8008-80-48 08:24:36374Ywwnqhdw Y[place]is PPLJHMEEIKEB3355-93-41 08:24:0086Memorial NgiisqwWMJNLGTUWDDO8787-24-90 08:24:00 6Memorial KbavxamPRXLNYUJQA6154-13-81 08:24:0011.6[facility] HermannHEMATOLOGY 2019-01-26 08:24:003.78Memorial KqmuqyxRWWYVYEPUB6433-47-10 08:24:0013.3Memorial SzjhbikDRCCRDNMBV7057-01-32 08:24:0034.0Memorial LsvwezaKRHLDNVPEB7778-46-61 08:24:006.3[facility]orial KvqzjbuEHQTPGVWEU3114-21-97 08:24:00 Test Item Value Reference Range Interpretation Comments MCH (test code = MCH) 30.7 pg 27.0-31.0 Memorial YnsuiatGPPJLARLZU4195-32-55 08:24:0090.3[facility] HermannHEMATOLOGY 2019-01-26 08:24:0034.2Memorial KnywqygNNGKVOXZOJ0463-57-08 08:24:86076Dogvzkyy EbodfdsQODSZJXYSQ0581-56-52 08:24:007.5[facility] HermannCHEM QAUPV8075-91-97 09:14:95076Lzkbtbfq HermannCHEM FCPFA7127-19-73 09:14:008.5[facility] HermannCHEM OTRTF3588-19-66 09:14:0013.3[facility] HermannCHEM OCZNW2476-42-97 09:14:0024 [facility] HermannCHEM LIKYC4638-29-89 09:14:01196Rvexmnir HermannCHEM PANEL 2019-01-25 09:14:0081[facility] HermannCHEM PRMQW5594-72-96 09:14:002[facility] HermannCHEM QLGYQ3770-05-91 09:14:003.3[facility] HermannCHEM WFIFR0653-78-85 09:14:000.60[facility] HermannCHEM IJSEY1723-24-66 09:14:16293Msfhcsfw HermannCHEM MBTPI4041-76-90 09:14:00759Yefokqvm HermannCHEM VINNB8984-24-68 09:14:008.5 [facility] HermannCHEM KNSVB9957-32-43 09:14:0013.3[facility] HermannCHEM PANEL 2019-01-25 09:14:0024Mem[facility] HermannCHEM QWLXC4660-45-20 09:14:71880Vlpbibvl HermannCHEM URAUW5075-00-71 09:14:0081[facility] HermannCHEM PGBLD4722-96-66 09:14:002[facility] HermannCHEM ZSDLH8064-45-43 09:14:003.3[facility] HermannCHEM VHXGW3894-21-42 09:14:000.60[facility] HermannCHEM XEMEP8198-74-10 09:14:95018 [facility] HermannMOLECULAR FOWQQCWEFR1650-66-81 16:22:00Negative (01/23/19 11:22 AM)[facility] HermannMOLECULAR CLQSBCOXMB7422-92-06 16:22:00Negative (01/23/19 11:22 AM)[facility] HermannCHEM KNARJ5589-85-48 15:42:002.76[facility] HermannCHEM PANEL 2019-01-23 15:42:002.76[facility] HermannCHEM ZBGAQ7019-07-59 12:32:000.9[facility] HermannCHEM WFBKF3088-15-25 12:32:000.9[facility] HermannCHEM EFYPF9332-43-76 10:50:002.0[facility] HermannCHEM ZNHQM7440-46-56 10:50:95732Oqcnosag HermannCHEM BHXNV6873-63-99 10:50:0023[facility] HermannCHEM JKPGI3403-13-88 10:50:36497 [facility] HermannCHEM FQRMK0656-40-55 10:50:003.1[facility] HermannCHEM PANEL 2019-01-23 10:50:47926Vzdgmvks HermannCHEM ZCUSA8712-29-73 10:50:005[facility] HermannCHEM AKZHB8281-51-46 10:50:000.50[facility] HermannCHEM DJPHQ2573-17-18 10:50:007.8[facility] HermannCHEM SGJFM7493-45-47 10:50:0083[facility] HermannCHEM HHKZM6478-76-46 10:50:0010.1Memorial SeobqmnMXVQEFMDSW4742-20-25 10:50:000.2 Memorial BhhwyilPNJYVBWOZH0115-08-21 10:50:000.8[facility] HermannHEMATOLOGY 2019-01-23 10:50:005.5Memorial VgrqwczOJTFWASRLM4758-85-00 10:50:002.2Memorial FkzgooeLJHBNJRAVI8876-75-69 10:50:000.1Memorial FnclkclZTOTFYCMAV5744-92-36 10:50:0063.6Memorial UcshuqpSESSYAOGXU5681-54-06 10:50:008.9[facility] Yonis FHFHBXSSMO4633-81-80 10:50:002.3Memorial UcurolmMFPHJFQXTE4070-27-06 10:50:00 Normal (01/23/19 5:50 AM)[facility]orial HmrsjmnYZLOCUFQRH7764-42-68 10:50:00Normal (01/23/19 5:50 AM)[facility]orial SwvkanpHAWYDRQWZP9811-44-54 10:50:0025.1Memorial CyhjlyoGVSIGUVQPF5740-98-56 10:50:0013.1Memorial BlloddyDAAUCGYAHY1831-52-47 10:50:56843Mzgrozgb DzsccovDUJUHTKVLJ4093-01-98 10:50:007.7[facility] Yonis PFXDEJHCVU1216-68-09 10:50:008.6[facility]orial AcfnehdZGWBEWKNMY0324-83-35 10:50:00 10.0Memorial ToxafggQZYAGAJVOY2482-01-31 10:50:0034.6[facility] HermannHEMATOLOGY 2019-01-23 10:50:0028.7Memorial DntrscxYYQJEXAAXZ8435-49-39 10:50:0087.8Memorial IoogfsaUIUUXDWAOJ6694-32-68 10:50:00 Test Item Value Reference Range Interpretation Comments MCH (test code = MCH) 30.4 pg 27.0-31.0 Memorial BwiohllZBSIVQXFMR5063-07-88 10:50:003.27[facility] HermannCHEM PANEL 2019-01-23 10:50:002.0[facility] HermannCHEM IKQAP4015-25-56 10:50:38488Szrvergv HermannCHEM WEUHT3184-49-43 10:50:0023[facility] HermannCHEM HBUQR4207-13-37 10:50:82244Djhmtlmk HermannCHEM RAKSG3052-44-85 10:50:003.1[facility] HermannCHEM JPQQZ1582-86-28 10:50:22865Irogwqtf HermannCHEM DGVQA9526-67-20 10:50:005 [facility] HermannCHEM JVPWU5125-51-86 10:50:000.50[facility] HermannCHEM PANEL 2019-01-23 10:50:007.8[facility] HermannCHEM YKKLS2466-85-35 10:50:0083[facility] HermannCHEM WKVTX2445-55-30 10:50:0010.1Memorial QsgqlexUXNRLMGHOQ0858-11-86 10:50:000.2Memorial TzivzdrUDNSQVHXZT8426-98-82 10:50:000.8[facility] Yonis NBXINBADAV3279-18-35 10:50:005.5[facility]orial ClinftrAJKJOQPBZT8635-14-96 10:50:002.2 Memorial VyoyeinLINWVXHCNP0511-39-19 10:50:000.1[facility] HermannHEMATOLOGY 2019-01-23 10:50:0063.6[facility] GukqkkmNAYAEKCRCT1715-33-50 10:50:008.9[facility]orial OaqwvglGJUOYFZVZE0307-42-15 10:50:002.3[facility] VfphornUBDGMVCTLB3995-73-86 10:50:00Normal (01/23/19 5:50 AM)[facility] OisjxanLHDUCXPYEG0618-19-56 10:50:00 Normal (01/23/19 5:50 AM)[facility]orial KceeltkZQOLYLFBWZ3836-73-45 10:50:0025.1[facility] OcphfkeDBSLCGFVSX3647-38-07 10:50:0013.1[facility]orial GmfmgaoZKBKEDZAKU8177-81-12 10:50:25471Pjynlvip XwtwvokSFMAVMGTMO3244-69-26 10:50:007.7[facility] [place] FPLYBCBKZW4909-09-20 10:50:008.6[facility]orial XfgmxkeOYJLMSEPFI8609-59-18 10:50:00 10.0[facility]orial NqcbclhWEXFWQDIQK1694-90-90 10:50:0034.6[facility] HermannHEMATOLOGY 2019-01-23 10:50:0028.7[facility] MuuziytGWBZPJKJXA5474-46-35 10:50:0087.8[facility] GicvbsxQROAASKVCN7346-65-54 10:50:00 Test Item Value Reference Range Interpretation Comments MCH (test code = MCH) 30.4 pg 27.0-31.0 Memorial WnzozwwILZMCGDTPR2703-07-08 10:50:003.27[facility] HermannCHEM PANEL 2019-01-22 11:32:002.4[facility] HermannCHEM FFTCE7979-58-42 11:32:002.4[facility] HermannCHEM IVYPJ4098-68-30 09:04:003.0[facility] HermannCHEM EXSOT1626-15-68 09:04:003.0[facility] [id number] 07:14:00<1[facility] [id number] 07:14:0025[facility] STOOL 2019-01-22 07:14:002[facility] [id number] 07:14:00Light Yellow *NA*(01/22/19 2:14 AM)[facility] [id number] 07:14:00 Clear (01/22/19 2:14 AM)[facility] [id number] 07:14:00 Test Item Value Reference Range Interpretation Comments UA Spec Grav (test code = UA Spec 1.014 1 Grav) [facility] [id number] 07:14:00 Test Item Value Reference Range Interpretation Comments UA pH (test code = UA pH) 6.0 1 5.0-8.0 [facility] [id number] 07:14:00Negative (01/22/19 2:14 AM) [facility] [id number] 07:14:00Negative *NA*(01/22/19 2:14 AM) [facility] [id number] 07:14:00Negative *NA*(01/22/19 2:14 AM) [facility] [id number] 07:14:00Negative *NA*(01/22/19 2:14 AM) [facility] [id number] 07:14:00Negative (01/22/19 2:14 AM) [facility] [id number] 07:14:00Negative (01/22/19 2:14 AM) [facility] [id number] 07:14:00Negative (01/22/19 2:14 AM) [facility] [id number] 07:14:00<1[facility] [id number] 07:14:0025[facility] [id number] 07:14:002 [facility] [id number] 07:14:00Light Yellow *NA*(01/22/19 2:14 AM)[facility] [id number] 07:14:00Clear (01/22/19 2:14 AM) [facility] [id number] 07:14:00 Test Item Value Reference Range Interpretation Comments UA Spec Grav (test code = UA Spec 1.014 1 Grav) [facility] [id number] 07:14:00 Test Item Value Reference Range Interpretation Comments UA pH (test code = UA pH) 6.0 1 5.0-8.0 [facility] [id number] 07:14:00Negative (01/22/19 2:14 AM) [facility] [id number] 07:14:00Negative *NA*(01/22/19 2:14 AM) [facility] [id number] 07:14:00Negative *NA*(01/22/19 2:14 AM) [facility] [id number] 07:14:00Negative *NA*(01/22/19 2:14 AM) [facility] XQXWT3810[facility]99[facility]57 07:14:00Negative (01/22/19 2:14 AM) [facility] SWOJO3101-65-34 07:14:00Negative (01/22/19 2:14 AM) [facility] GRBOJ0876-86-81 07:14:00Negative (01/22/19 2:14 AM) [facility] ZoziydaZLQQH0628-62-65 05:16:000.90[facility] CqxbesfEEAKV5285-41-87 05:16:000.90[facility] FYJPFMX2435-43-72 05:01:00Negative (01/22/19 12:01 AM)[facility] QXUPMBC3729-32-34 05:01:00<0.02 [facility] CKAKIRG6000-81-63 05:01:0049[facility]annCHEM PANEL 2019-01-22 05:01:000.6[facility]annCHE[facility] FBKRW2151-25-22 05:01:27587Etybrgdk HermannCHEM YWLEB3351-79-33 05:01:004.0[facility]annCHE[facility] EXVKT2008-70-71 05:01:0017[facility]annCHE[facility] CHTVE4005-87-68 05:01:0025[facility]annCHE[facility] KVBDK3416-29-58 05:01:008.1[facility]annCHE[facility] ZWEGB6110-52-90 05:01:00 Test Item Value Reference Range Interpretation Comments B/C Ratio (test code = B/C Ratio) 20 1 6-25 [facility] SUEIG1030-97-29 05:01:00 Test Item Value Reference Range Interpretation Comments A/G Ratio (test code = A/G Ratio) 1.0 1 0.7-1.6 [facility] JVZFH1380-96-85 05:01:004.1[facility]annCHEM PANEL 2019-01-22 05:01:006.90[facility] JzbujnuOUHHZBKHWYQEI2911-33-28 05:01:00Negative *NA*(01/22/19 12:01 AM)[facility] YwtippvRNJMSVUYYX8527-13-87 05:01:000.1[facility] SjrmmbfSOYBXUDLNY7711-61-72 05:01:000.7[facility] GjwwocjBRUZYCIYYS6957-69-44 05:01:000.0[facility] MdruduuUQDBLNWSEW8491-16-58 05:01:000.0[facility] JWRXWYNWSY0676-99-43 05:01:000.9[facility] RgbrsuwWEKXMUHZRW5810-02-74 05:01:008.6 [facility] KgtqvihAMYIZWMAQH8067-88-69 05:01:000.6[facility]annHEMATOLOGY 2019-01-22 05:01:0086.5[facility] WsxazljTBEWZAYITY7228-10-32 05:01:005.7[facility] CtkvpaaJVEIKYHWKI2261-55-69 05:01:006.9[facility] LyomcikTHLOMELPQV6256-32-99 05:01:009.9[facility] HrzskmxXHPYNTHATU5822-66-67 05:01:0032.8[facility] XKEKATKXOT0185-60-67 05:01:0013.6[facility] PqyxnlpGYFQXBEQFC7591-55-42 05:01:00 443[facility] NkfbbtlUGBZWUPHPM7420-36-12 05:01:007.3[facility]annHEMATOLOGY 2019-01-22 05:01:0014.0[facility] ZmcboitNFDBCBOHQM1225-02-38 05:01:004.85[facility] JbzucfyXXVGGHZBOP8745-79-13 05:01:0042.7[facility] CelorubZZCIYZQFVW0959-80-34 05:01:00 Test Item Value Reference Range Interpretation Comments MCH (test code = MCH) 29.0 pg 27.0-31.0 [facility] YycgqtwYRZSJJOINR9731-86-23 05:01:0088.2[facility]HE[facility]OLOGY 2019-01-22 05:01:00 Test Item Value Reference Range Interpretation Comments INR (test code = INR) 0.96 1 0.85-1.17 [facility] TysbogqULINXRAVCC9972-51-13 05:01:00 Test Item Value Reference Range Interpretation Comments PT (test code = PT) 12.6 s 12.0-14.7 [facility]ct[facility]JDDRIOCMO0810-49-47 05:01:00 Test Item Value Reference Range Interpretation Comments PTT (test code = PTT) 25.9 s 22.9-35.8 [facility] OSVSMQA8766-28-66 05:01:00Negative (01/22/19 12:01 AM) [facility] XLCVVLM9600-78-11 05:01:00<0.02[facility] CARDIAC KEVRYHP6138-50-30 05:01:0049[facility]annCHE[facility] CVUZA1275-48-74 05:01:000.6[facility]annCHEM LWXVA9422-09-58 05:01:23718Wrrozlsn HermannCHEM TWMME6993-48-52 05:01:004.0[facility]annCHE[facility] TZGVL2045-36-24 05:01:0017 [facility]annCHE[facility] DXZSO4543-80-56 05:01:0025[facility]annCHEM PANEL 2019-01-22 05:01:008.1[facility]annCHEM SSAQV1843-21-13 05:01:00 Test Item Value Reference Range Interpretation Comments B/C Ratio (test code = B/C Ratio) 20 1 6-25 [facility]CHE[facility] KNZDH4990-41-79 05:01:00 Test Item Value Reference Range Interpretation Comments A/G Ratio (test code = A/G Ratio) 1.0 1 0.7-1.6 [facility]annCHE[facility] JHMHS3747-80-74 05:01:004.1[facility]annCHEM PANEL 2019-01-22 05:01:006.90[facility] OijdbffHRJDBPKVRVRDJ6815-87-89 05:01:00Negative *NA*(01/22/19 12:01 AM)[facility] UylaklsKVKKXCPBNE5566-72-95 05:01:000.1[facility] YvxxcciDCYTJMPZGO4101-32-07 05:01:000.7[facility] YfxzhqiCOVBLEQPDO2076-46-64 05:01:000.0[facility] FtwhlslJEDRLGLAKQ9547-86-54 05:01:000.0[facility] KAVJOEZFNY3604-66-63 05:01:000.9[facility] MxfpkdwLOIRDZRHHG9083-30-87 05:01:008.6 [facility] SyqrguyEAGVCLPOFZ5526-91-31 05:01:000.6[facility]annHEMATOLOGY 2019-01-22 05:01:0086.5[facility] LzhyhlhRBQXXRYAHC7674-88-74 05:01:005.7[facility] YgarsotREULJUSJJP7205-48-30 05:01:006.9[facility] VildnrvDDJMIKKKXM8943-80-92 05:01:009.9[facility] LowerkgTBONQFEREK0944-53-78 05:01:0032.8[facility] AGGPHJELES5913-02-61 05:01:0013.6[facility] KitjlykVSCUBFPACT8992-88-33 05:01:00 443[facility] KrgactvTUAPPPZJEC4620-25-65 05:01:007.3[facility]annHEMATOLOGY 2019-01-22 05:01:0014.0[facility] TyheepkMXMPCVJGXG5666-40-33 05:01:004.85[facility] ZxbeekjIAZEXFCTQS5315-60-00 05:01:0042.7[facility] CspirzgXSTTNLPFNC2042-58-92 05:01:00 Test Item Value Reference Range Interpretation Comments MCH (test code = MCH) 29.0 pg 27.0-31.0 [facility] HospitalOahvpvkFMIYUFCSAY1883-36-68 05:01:0088.2[facility]annHEMATOLOGY 2019-01-22 05:01:00 Test Item Value Reference Range Interpretation Comments INR (test code = INR) 0.96 1 0.85-1.17 [facility]ziqtqkZZVJLZWRNX8078-82-81 05:01:00 Test Item Value Reference Range Interpretation Comments PT (test code = PT) 12.6 s 12.0-14.7 [facility]vuphfjBLZONOULSW9104-39-45 05:01:00 Test Item Value Reference Range Interpretation Comments PTT (test code = PTT) 25.9 s 22.9-35.8 [facility]P8282[facility]78-81 14:36:00 Test Item Value Reference Range Interpretation [...] 0.00-0.01 N code = ETOHU) Comprehensive Metabolic Uqdzy0024-11-50 14:36:00 Test Item Value Reference Range Interpretation [...] the [employer],http :[email or web address] ep.nih.gov Urinalysis Gdjxtcns1641-93-85 14:32:00 Test Item Value Reference Range Interpretation Comments Color (test code = COLOR) Yellow Yellow,Straw,Pl N yellow Clarity (test code = Clear Clear N CLAR) Specific [place] (test 1.024 1.001-1.035 N code = SPGR) [...] code = Few /HPF BACT) CBC with Dirwzgjtfoxh4992-67-33 14:21:00 Test Item Value Reference Range Interpretation [...] code = ALYMPH) 3.0 K/cumm 0.5-4.6 N [place] Abs (test code = AMONO) 0.5 K/cumm 0.0-1.2 N Eos Abs (test code = AEOS) 0.19 K/cumm 0.00-0.74 N Baso Abs (test code = ABASO) 0.1 K/cumm 0.00-0.21 N
== END 2021-09-02 14:46 | disposition home or self-care (01) ==
LOC: ER 05:52
DX: T43.621A Poisoning by amphetamines, accidental (unintentional), initial encounter (principal); Z88.8 Allergy status to other drugs, medicaments and biological substances; F31.9 Bipolar disorder, unspecified; F17.220 Nicotine dependence, chewing tobacco, uncomplicated
CPT/HCPCS: 85025; 80048; 36415; 80320; 80329 ×2; 85610; 80178; 80076; 85730; 81003; 80307; 99284; J3480; J7050; J7030 ×2

== ENCOUNTER 2021-09-03 12:22 | Emergency (ER) | payer OTHER ==
--- NOTE | 2021-09-03 13:06 | ER ---
Nurse's Notes [facility] Name: Tiffany Quinn Age: 51 yrs Sex: Female : 1970 Arrival Date: 09/03/2021 Time: 12:30 Bed 6 Private MD: Diagnosis: Generalized anxiety disorder-Illicit drug use Presentation: 09/03 12:37 Chief complaint: Patient states: Pt reports that she was feeling anxious and that she jh6 hasn't used meth in almost 24 hrs. Coronavirus screen: Vaccine status: Patient reports receiving the 2nd dose of the covid vaccine. Client denies travel out of the [place] in the last 14 days. At this time, the client does not indicate any symptoms associated with coronavirus-19. Ebola Screen: Patient negative for fever greater than or equal to 101.5 degrees Fahrenheit, and additional compatible Ebola Virus Disease symptoms Patient denies exposure to infectious person. Patient denies travel to an Ebola-affected area in the 21 days before illness onset. Initial Sepsis Screen: Does the patient meet any 2 criteria? No. Patient's initial sepsis screen is negative. Does the patient have a suspected source of infection? No. Patient's initial sepsis screen is negative. Risk Assessment: Do you want to hurt yourself or someone else? Patient reports no desire to harm self or others. Onset of symptoms was 2020. Care prior to arrival: None. Activity prior to arrival: None. Mechanism of Injury: No Mechanism of Injury. Transition of care: patient was not received from another setting of care. 12:37 Method Of Arrival: EMS: [facility] 12:37 Acuity: MANUEL 3 jh6 Historical: - Allergies: 12:41 Haldol; jh6 12:41 Pepcid; jh6 12:41 Toradol; jh6 - Immunization history:: Client reports receiving the 2nd dose of the Covid vaccine. - Social history:: Patient uses street drugs, Methamphetamine (Meth) caffeine. - Family history:: not pertinent. - Hospitalizations: : No recent hospitalization is reported. Assessment: 12:42 Pain: Complains of pain in chest Pain does not radiate. Pain currently is 1 out of 10 jh6 on a pain scale. Quality of pain is described as heavy, Pain began gradually, Is continuous, Alleviated by nothing. Aggravated by amxiety Noted to be agitated, Also complains of sleeplessness. Cardiovascular: No deficits noted. Reports chest pain, Heart tones present Capillary refill < 3 seconds is brisk fingers JVD is absent Pulses are all present. Rhythm is sinus rhythm Chest pain. Vital Signs: 12:37 BP 146 / 84; Pulse 82; Resp 20; Temp 97.8; jh6 12:45 BP 139 / 84; Pulse 95; Resp 18; Pulse Ox 99% ; 6 ED Course: 12:30 Patient arrived in ED. ds1 12:31 James Eric MD is Attending Physician. ma2 12:37 Tiffany Chavez is Primary Nurse. 6 12:41 Triage completed. 6 Administered Medications: 13:12 Drug: Ativan (LORazepam) 1 mg Route: PO; 6 Outcome: 13:05 Discharge ordered by . vt2 13:19 Patient left the ED. [facility] Signatures: Neelima Rivera ds1 James Eric MD MD vt2 Niya Huntley, RN RN [facility] Tiffany Chavez [facility]
--- NOTE | 2021-09-03 13:06 | EDPHYS ---
Physician Documentation [facility] Name: Tiffany Quinn Age: 51 yrs Sex: Female : 1970 Arrival Date: 09/03/2021 Time: 12:30 Bed 6 Private MD: ED Physician James Eric HPI: 09/03 13:02 This 51 yrs old Female presents to ER via EMS with complaints of anxiety. ma2 13:02 Onset: gradually, 1 week(s) ago. Associated signs and symptoms: Pertinent negatives: ma2 diaphoresis, lower extremity swelling, lightheadedness, syncope, vomiting. Severity of pain: At its worst the pain was very mild moderate in the emergency department the pain has improved. The patient has experienced similar episodes in the past, Patient use meth, presented to the ER many times in the past, I saw her few times last week, with meth use and anxiety, delusions. She is here with same symptoms. No chest pain SI or HI.. Historical: - Allergies: 12:41 Haldol; jh6 12:41 Pepcid; 6 12:41 Toradol; jh6 - Immunization history:: Client reports receiving the 2nd dose of the Covid vaccine. - Social history:: Patient uses street drugs, Methamphetamine (Meth) caffeine. - Family history:: not pertinent. - Hospitalizations: : No recent hospitalization is reported. ROS: 13:02 Constitutional: Negative for fever, chills, and weight loss. ma2 13:02 All other systems are negative. Exam: 13:02 Constitutional: This is a well developed, well nourished patient who is awake, alert, ma2 and in no acute distress. Head/Face: Normocephalic, atraumatic. Eyes: Pupils equal round and reactive to light, extra-ocular motions intact. Lids and lashes normal. Conjunctiva and sclera are non-icteric and not injected. Cornea within normal limits. Periorbital areas with no swelling, redness, or edema. ENT: Nares patent. No nasal discharge, no septal abnormalities noted. Tympanic membranes are normal and external auditory canals are clear. Oropharynx with no redness, swelling, or masses, exudates, or evidence of obstruction, uvula midline. Mucous membranes moist. Neck: Trachea midline, no thyromegaly or masses palpated, and no cervical lymphadenopathy. Supple, full range of motion without nuchal rigidity, or vertebral point tenderness. No Meningismus. Chest/axilla: Normal chest wall appearance and motion. Nontender with no deformity. No lesions are appreciated. Cardiovascular: Regular rate and rhythm with a normal S1 and S2. No gallops, murmurs, or rubs. Normal PMI, no JVD. No pulse deficits. Respiratory: Lungs have equal breath sounds bilaterally, clear to auscultation and percussion. No rales, rhonchi or wheezes noted. No increased work of breathing, no retractions or nasal flaring. Abdomen/GI: Soft, non-tender, with normal bowel sounds. No distension or tympany. No guarding or rebound. No evidence of tenderness throughout. Skin: Warm, dry with normal turgor. Normal color with no rashes, no lesions, and no evidence of cellulitis. MS/ Extremity: Pulses equal, no cyanosis. Neurovascular intact. Full, normal range of motion. Neuro: Awake and alert, GCS 15, oriented to person, place, time, and situation. Cranial nerves II-XII grossly intact. Motor strength 5/5 in all extremities. Sensory grossly intact. Cerebellar exam normal. Normal gait. 13:02 Psych: Behavior/mood is pleasant, Affect is flat, animated, Oriented to person, place, time, Patient has no thoughts/intents to harm self or others. Judgement / Insight is impaired. Delusions/hallucinations Vital Signs: 12:37 BP 146 / 84; Pulse 82; Resp 20; Temp 97.8; jh6 12:45 BP 139 / 84; Pulse 95; Resp 18; Pulse Ox 99% ; jh6 MDM: 12:31 Patient medically screened. ma2 13:04 Differential diagnosis: anxiety, Methamphetamine use, delusional hallucinations, drug ma2 use. Data reviewed: vital signs, nurses notes. Counseling: I had a detailed discussion with the patient and/or guardian regarding: the historical points, exam findings, and any diagnostic results supporting the discharge/admit diagnosis, the presence of at least one elevated blood pressure reading (>120/80) during this emergency department visit, the need for outpatient follow up. 09/03 12:32 Order name: EKG; Complete Time: 12:32 [facility] 09/03 12:32 Order name: Cardiac monitoring [facility] 09/03 12:32 Order name: IV Saline Lock ne2 09/03 12:32 Order name: Labs collected and sent ne2 09/03 12:32 Order name: O2 Per Protocol ne2 09/03 12:32 Order name: O2 Sat Monitoring ma2 Administered Medications: 13:12 Drug: Ativan (LORazepam) 1 mg Route: PO; 6 Disposition Summary: 09/03/21 13:05 Discharge Ordered Location: Home ma2 Condition: Stable ma2 Diagnosis - Generalized anxiety disorder - Illicit drug use(09/03/21 13:05) ma2 Followup: ma2 - With: Private Physician - When: Tomorrow - Reason: If symptoms return Discharge Instructions: - Discharge Summary Sheet ma2 - Methamphetamines Use Disorder ne2 Forms: - Medication Reconciliation Form ma2 - Thank You Letter ma2 - Antibiotic Education ma2 - Prescription Opioid Use ne2 Signatures: Dispatcher [employer] EDMS James Eric MD MD [facility] Tiffany Chavez [facility] Corrections: (The following items were deleted from the chart) 12:40 12:32 BASIC METABOLIC PANEL+C.LAB.BRZ ordered. EDMS EDMS 12:40 12:32 CBC+H.LAB.BRZ ordered. EDMS EDMS 12:40 12:32 HEPATIC FUNCTION+C.LAB.BRZ ordered. EDMS EDMS 12:40 12:32 MAGNESIUM+C.LAB.BRZ ordered. EDMS EDMS 12:40 12:32 PROBNP+C.LAB.BRZ ordered. EDMS EDMS 12:40 12:32 PROTIME (+INR)+COAG.LAB.BRZ ordered. EDMS EDMS 12:40 12:32 TROPONIN (EMERG DEPT USE ONLY)+C.LAB.BRZ ordered. EDMS EDMS 12:47 12:32 EKG - Nurse/Tech ordered. ne2 ne2 13:05 13:05 Generalized anxiety disorder ne2 ne2
[2021-09-03] MEDS ORDERED: LORAZEPAM 0.5 MG TABLET ONE (13:09)
[2021-09-03 13:46] VITALS: TEMP 97.8
[2021-09-03 13:47] VITALS: BP 139/84; O2SAT 99
--- NOTE | 2021-09-05 20:47 | EKG ---
Test Date: 2021-09-02 Test Time: 06:22:11 Parts Specialist: DONNY MEASUREMENT RESULTS: Intervals: Rate: 95 TN: 128 QRSD: 90 QT: 386 QTc: 485 [place]: P: 30 TN: 128 QRS: -20 T: 47 INTERPRETIVE STATEMENTS: Normal sinus rhythm RSR' or QR pattern in V1 suggests right ventricular conduction delay Possible Anterior infarct, age undetermined Abnormal ECG Compared to ECG 08/29/2021 19:42:29 Left-axis deviation no longer present Left ventricular hypertrophy no longer present Myocardial infarct finding still present Electronically Signed On 09-05-21 20:36:11 WILDLIFE BIOSTATION RESEARCH ECOLOGIST by Tito Smiley
--- OUTSIDE RECORDS SUMMARY | 2021-09-06 19:13 | XMS REPORT | Continuity of Care Document ---
:1970 Author Organization [facility] t Address [address] [place] [address] Care Team Providers Name Role Phone UNKNOWN [...] oria 3 01:52:00 l LOW PB 00:00: Fitz[place] 00 Active 01/21/2019 [facility] INFECTIOUS Diagnosis Active 2019-02-06 Memoria GASTROENTE 330 08:58:00 l RITIS AND 00:00: Fitzpatrick COLITIS INFECTIOUS 00 GASTROENTE RITIS AND COLITIS Active 01/21/2019 [facility] Irregular Irregular Disease Active Uni vers menstrual menstrual 8-15 ity of cycle cycle 00:00: [address] Skin Skin Disease Active Univers lesion lesion 8-15 ity of 00:00: [address] Psychiatri Psychiatri Disease Active U nivers c disorder c disorder 8-15 it y of 00:00: [address] Well woman Well woman Disease Active U kavita exam with exam with 8-15 ity of routine routine 00:00: [place] gynecologi gynecologi 00 Me dical nicky exam nicky exam Branch INFECTIOUS Diagnosis Active 2019-02-06 Memoria GASTROENTE 08:58:00 winifred WALTON AND Yonis COLITIS, INFECTIOUS GASTROENTE RITIS AND COLITIS, Active [facility] Allergies, Adverse Reactions, Alerts Allergy Allergy Status Severity Reaction(s) Onset Inactive Treating Comm ents Source Name Type Date Date Clinician NO KNOWN Drug Active Univers ALLERGIE Class ity of S [facility] Phenerga Phenerga Active Memori a n n l Yonis Social History Social Habit Start Date Stop Date Quantity Comments Source [facility] of Cig[facility] Tobacco Comment 2-3 cigs a day [facility] Exposure to Not sure [facility] SARS-CoV-2 [facility] (event) Isabella Tobacco use and 2016-06-08 2016-06-08 Never used [facility] y of exposure 00:00:00 00:00:00 [facility] Alcohol intake 2016-06-08 2016-06-08 Current University 00:00:00 00:00:00 non-drinker of [facility] alcohol (finding) Branch Smoking Status Start Date Stop Date Source Social History 2019-01-22 05:00:12 [facility] Current some day smoker 2016-06-08 00:00:00 [facility] Medications Ordered Filled Start Stop Current Ordering Indication Dosage Frequency Signature Comments Components Source Medication Medication Date Date Medication? Clinician (SIG) Name Name ondansetron 2019-10 2020- No 4mg 4 mg, [facility] ers (ZOFRAN-ODT 2-05 05- Oral, ity of ) 15:15: 14:16 ONCE, 1 [place] disintegrat 00 :00 dose, Mon Med ical ing tablet 09/30/20 at [facility] 4 mg 0915, Routine ondansetron 2019-10 2020- No 4mg 4 mg, [facility] ers (ZOFRAN-ODT 2-05 05- Oral, ity of ) 14:30: 13:32 ONCE, 1 [place] disintegrat 00 :00 dose, Mon Med ical ing tablet 09/30/20 at [facility] 4 mg 0830, Routine ondansetron 2019-10 Yes [id number] 4mg Take 1 Univers 4 mg 2-07 tablet by ity of disintegrat 00:00: mouth [place] ing tablet 00 every 8 Medica l (eight) Branch hours as needed for Nausea and Vomiting (N/V). ciprofloxac 2019- Yes 500 mg = 1 Memoria in 500 mg 4-04 tab, PO, l oral tablet 17:35: [id number], X Yonis 00 4 day, # 8 tab, 0 Refill(s) Ondansetron 2018- Yes 4 mg = 1 Me moria 4 MG Oral 4-04 tab, PO, l Tablet 17:35: Q6H, PRN Fitzpatrick [Zofran] 00 Nausea/Vom iting, # 20 tab, [...] 4-04 tab, PO, l oral tablet 17:35: [id number], X Fitzpatrick 00 4 day, # 8 tab, 0 [...] Memoria 4-01 Route: PO, l 22:00: QPM, [place] Dosing Weight 75, kg, Start date: 01/23/19 [...] Memori a 01-23 interfere l 15:00: w/enteral Fitzpatrick 00 feedings - Take 1 hr before [...] PO, ONCE, l mEq oral 14:20: 0 Fitzpatrick tablet, 00 Refill(s) extended release Metronidazo No 500 mg, Mem oria le 500 MG 4-01 PO, l Oral Tablet 14:20: [id number], 0 H ermann [Flagyl] 00 Refill(s) Ciprofloxac No 500 mg, Mem oria in 500 MG 4-01 PO, l Oral Tablet 14:20: [id number], 0 Yonis [Cipro] 00 Refill(s) potassium Yes 40 mEq, Memor ia chloride 20 4-01 PO, ONCE, l mEq oral 14:20: 0 Fitzpatrick tablet, 00 Refill(s) extended release Metronidazo No 500 mg, Mem oria le 500 MG 4-01 PO, l Oral Tablet 14:20: ABXQ8H, 0 H ermann [Flagyl] 00 Refill(s) Ciprofloxac No 500 mg, Mem oria in 500 MG 4-01 PO, l Oral Tablet 14:20: [id number], 0 Yonis [Cipro] 00 Refill(s) Potassium No Notes: Memori a Chloride 01-23 (Same as: l 14:17: K-Dur 20) Fitzpatrick "Do Not Crush" Give with food and [...] oria 3-31 to exceed l 15:03: 400mg/day. Fitzpatrick (Same As: Ultram) normal No 1,000 mL, [...] 3-31 Route: IM, l 09:47: Drug form: Fitzpatrick 00 PDR/INJ, PRN, Dosing Weight 75.994, kg, PRN Blood Glucose Results, Start date: 01/22/19 4:47:00 CDT, Duration: 30 day, Stop date: 02/21/19 4:46:00 CDT Dextrose 2019-0 No 12.5 gm, Memor ia 50% Syringe 3-31 25 mL, l 09:47: Route: Fitzpatrick 00 IVP, Drug Form: INJ, Dosing Weight [...] Memoria 3-31 (Same as: l 08:56: Zofran) Fitzpatrick 00 MEDICATION WASTE Product Size: 4 mg Product Wasted: ___ mg Zofran No Notes: Memoria 3-31 (Same as: l 08:56: Zofran) Fitzpatrick 00 MEDICATION WASTE Product Size: 4 mg [...] moria IV 3-31 1,000 l 08:52: ml/hr, Fitzpatrick 00 Infuse Over: 1 hr, Route: IV, [...] moria IV 3-31 1,000 l 05:44: ml/hr, Fitzpatrick 00 Infuse Over: 1 hr, Route: IV, 1,000, Drug form: INJ, ONCE, Priority: STAT, Dosing Weight 75.994 kg, Start date: 01/22/19 0:44:00 CDT, Stop date: 01/22/19 0:44:00 CDT Zofran No Notes: Memoria 3-31 (Same as: l 04:52: Zofran) MEDICATION WASTE Product Size: 4 mg Product Wasted: ___ mg Saline No Notes: Memoria Flush 0.9% 3-31 Same as: l 04:52: BD Fitzpatrick 00 Posiflush Sterile Zofran No Notes: Memoria [...] tablet by ity of HYDROCHLORI 00:00: mouth [place] DE,) 4 mg 00 every 8 Medical tablet (eight) Branch hours. ibuprofen Yes 200mg Take 200 Uni vers (ADVIL) 200 8-15 mg by ity of mg tablet 19:02: mouth [place] 27 every 6 Medical (six) Branch hours as needed. CLONAZEPAM Yes Take by Uni vers (KLONOPIN 8-15 mouth. ity of ORAL) 19:02: [place] 27 Medical Branch CITALOPRAM Yes Take by Uni vers HYDROBROMID 8-15 mouth. ity of E 19:02: [place] (CITALOPRAM 27 Medical ORAL) Branch misoprostol Yes [...] H it y of en-caff 00:00: PRN. [place] (ESGIC) 00 Medical 50-325-40 Branch mg tablet dextroamphe Yes TK 1 T PO U nivers tamine-amph 7-20 BID. ity of etamine 00:00: [place] (ADDERALL) 00 Medical 20 mg Branch tablet amoxicillin 2014-10 Yes 500mg Take 1 Cap Univers (TRIMOX) 1-16 by mouth 3 ity o f 500 mg 00:00: (three) [place] capsule 00 times Medical daily. Branch traMADOL 2014-10 Yes 50mg Take 1 Tab Uni vers (ULTRAM) 50 1-16 by mouth ity of mg tablet 00:00: every 6 [place] 00 (six) Medical hours as Branch needed for Pain (scale 4-6). naproxen 2015-1 Yes 500mg Take 1 Tab Un parul (NAPROSYN) 1-16 by mouth 2 ity of 500 mg 00:00: (two) [place] tablet 00 times Medical daily with Branch meals. Vital Signs Vital Name Observation Time Observation Value Comments Source Systolic blood 2020-09-30 14:00:00 126 mm[Hg] Univer sity of pressure [facility] Diastolic blood 2020-09-30 14:00:00 84 mm[Hg] Unive rsity of [facility] Heart rate 2020-09-30 14:00:00 79 /min Universi ty of [facility] Oxygen saturation in 2020-09-30 14:00:00 98 /min University of Arterial blood by [facility] Pulse oximetry Branch Body temperature 2020-09-30 13:26:00 37.22 Ruthann [facility] ersity of [facility] Respiratory rate 2020-09-30 13:26:00 16 /min Univ ersity of [facility] Body weight 2020-09-30 13:26:00 72.576 kg Universi ty of [facility] BMI 2020-09-30 13:26:00 28.80 kg/m2 Universi ty of [facility] Systolic blood 2020-09-30 14:00:00 126 mm[Hg] Univer sity of [facility] Diastolic blood 2020-09-30 14:00:00 84 mm[Hg] Unive rsity of [facility] Heart rate 2020-09-30 14:00:00 79 /min Universi ty of [facility] Branch Oxygen saturation in 2020-09-30 14:00:00 98 /min University of Arterial blood by [facility] Pulse oximetry Branch Body temperature 2020-09-30 13:26:00 37.22 Ruthann [facility] ersity of [facility] Branch Respiratory rate 2020-09-30 13:26:00 16 /min Univ ersity [facility] Body weight 2020-09-30 13:26:00 72.576 kg Universi ty of [facility] BMI 2020-09-30 13:26:00 28.80 kg/m2 Universi ty of [facility] Temperature Oral (F) 2019-01-28 01:16:00 98.6 F [facility] Systolic (mm Hg) 2019-01-28 01:16:00 Estrada nadir Fitzpatrick Diastolic (mm Hg) 2019-01-28 01:16:00 Mem orial Fitzpatrick Heart Rate 2019-01-28 01:16:00 Memorial Yonis Respitory Rate 2019-01-28 01:16:00 Memori al Fitzpatrick Systolic (mm Hg) 2019-01-27 20:42:00 Estrada rial Fitzpatrick Diastolic (mm Hg) 2019-01-27 20:42:00 Mem orial Yonis Heart Rate 2019-01-27 20:42:00 Memorial Yonis Respitory Rate 2019-01-27 20:42:00 Memori al Fitzpatrick Temperature Oral (F) 2019-01-27 20:42:00 98.5 F [facility]patrick Systolic (mm Hg) 2019-01-27 17:00:00 Estrada rial Yonis Diastolic (mm Hg) 2019-01-27 17:00:00 Mem orial Fitzpatrick Temperature Oral (F) 2019-01-27 17:00:00 98.5 F [facility] Heart Rate 2019-01-27 17:00:00 Memorial Yonis Respitory Rate 2019-01-27 17:00:00 Memori al Yonis Height 2019-01-22 14:35:00 157.48 cm Memorial Yonis BMI Calculated 2019-01-22 14:35:00 Memori al Yonis Weight 2019-01-22 14:35:00 [facility] Weight 2019-01-22 04:34:00 [facility] Procedures Procedure Date / Time Performed Performing Clinician Sourc e URINALYSIS 2020-09-30 13:27:00 Chuy Jackson o f [facility] ADC,CLC OR LCC ONLY - 2020-09-30 13:27:00 Chuy Jackson [facility] INFLUENZA A & B DIRECT Medical B ranch ANTIGEN COVID-19 (ID NOW RAPID 2020-09-30 13:27:[address] [facility] TESTING) Medical Branch Encounters Start End Encounter Admission Attending Care Care Encounter Source Date/Time Date/Time Type Type Clinicians Facility Department ID 2019-01-22 Inpatient E [facility] [id number] [facility] W 04:39:00 2020-09-30 2020-09-30 Emergency DENIA Jackson [id number] 07:22:00 08:18:00 Chuy Jimenez [id number] [place] [id number] [facility] [id number] 2020-09-30 2020-09-30 Emergency [facility] [id number] Univers 07:22:00 08:18:00 Chuy Jimenez [id number] i Alyssa [id number] [facility] [id number] [place] [address] Branch 2020-09-30 2020-09-30 Emergency X [facility] ERT [id number] Univers 07:22:00 07:22:00 CHUY tubbs [facility] 2020-03-04 2020-03-14 Inpatient 3 [facility] PSY [id number] 15:38:00 15:25:00 [facility] 2019-01-22 2019-01-28 Inpatient [facility] [id number] Memoria 04:33:00 04:40:00 Yonis 00 l [facility] 2018-02-21 2018-02-20 [facility] [id number] 14:48:00 13:18:00 [facility] Results Test Description Test Time Test Comments Results Result Comments Source ADC,CLC OR LCC ONLY - INFLUENZA A & B DIRECT ANTIGEN 2020-09 14:04:00 Test Item Value Reference Range Interpretation Comme nts Influenza A (test code = 43954-3) Negative Negative Influenza B (test code = 12863-8) Negative Negative Lab Interpretation (test code = 41798-7) [facility] NOW RAPID TESTING)2020-09-30 14:03:00 Test Item Value Reference Range Interpretation Comments SARS-CoV-2 Rapid ID NOW Not Detected Not Detected (test code = 37684-1) PERRY (test code = PERRY) ID NOW COVID-19 Assay is an isothermal nucleic acid amplification test intended for the qualitative detection of nucleic acid from SARS-CoV-2 viral RNA in nasopharyngeal (AMALGAMATOR) specimens. It is used under Emergency Use [...] indicated. Lab Interpretation Normal (test code = 10526-8) [facility]2020-12-07 13:55:00 Test Item Value Reference Range Interpretation Comments APPEARANCE (test code = Hazy Clear A 7711569557) COLOR (test code = Yellow Yellow 4973863876) PH (test code = 4.8-8.0 6107902672) SP GRAVITY (test code = 1.003-1.030 0605355904) GLU U QUAL (test code = Normal Normal 3232864744) BLOOD (test code = Negative Negative 5453069311) KETONES (test code = 5 mg/dL Negative A 5439886068) PROTEIN (test code = Negative Negative 2887-8) UROBILIN (test code = 2.0 mg/dL Normal A 8471564015) BILIRUBIN (test code = Negative Negative 9620605035) NITRITE (test code = Negative Negative 7789697404) LEUK ROZINA (test code = 25/uL Negative A 2437459513) RBC/HPF (test code = See_Comment [Autom ated message] 0987526259) The system [facility] generated this result transmit ngozi reference range : 0 - 3 HPF. The refe rence range was not u sed to interpret th is result as normal/abnormal . WBC/HPF (test code = See_Comment [Autom ated message] 4176180602) The system [facility] generated this result transmit ngozi reference range : 0 - 5 HPF. The refe rence range was not u sed to interpret th is result as normal/abnormal . BACTERIA (test code = Few Negative A 5322849805) MUCOUS (test code = Slight Negative LPF A 3113794924) SQ EPITH (test code = HPF 8886721431) Lab Interpretation (test Abnormal code = 08001-3) [facility] Mwujwluqwnz3436-09-37 16:42:24 Test Item Value Reference Range Interpretation [...] = 10-24-2020 N Expiration Dt) Thyroid Stimulating Ybvtpam7641-06-93 08:35:16 Test Item Value Reference Range Interpretation Comments TSH (test code = TSH) 1.170 mIU/mL 0.270-4.200 Lipid Firth8179-47-26 08:21:19 Test Item Value Reference Range Interpretation Comments Cholesterol Total 254 mg/dL 0-200 H RISK OF HE ART (test code = DISEASEPublishe d by Cholesterol Total) [place] [employer] Cathie lyte Optimal Borderl ine [...] calculation is LDL/HDL Ratio=L DL Calc/HDL Chol DIBMESMKLFGB6572-52-29 08:24:008.6Memorial ZkdhcovKBHWMXPJZRTZ8379-93-71 08:24:92181Udjktupg IetjtxwRQYDQIUVJINA9077-63-75 08:24:0027[facility] Yonis TOKYLYBDRHRC3795-46-81 08:24:38056Dwqicvml EjihtalARLJLKQMHRBH3836-70-53 08:24:003.6Memorial SsepxqrTPARXZDHPNZU2692-62-44 08:24:000.70[facility] Yonis QATYOPDUYANT2486-00-60 08:24:008.4Memorial LywszabCHRYOOVMCHVA0701-65-61 08:24:27980Esvmgwfd BtakaefTWCXPAUACDJD9949-30-06 08:24:0086[facility] Yonis GUASWIGQARVE9968-32-73 08:24:006[facility]orial WixulreGCKDEAQFBK2661-28-78 08:24:00 11.6Memorial MspucxzCCBYWRHGFX3855-44-41 08:24:003.78[facility] HermannHEMATOLOGY 2019-01-26 08:24:0013.3[facility]orial FpfwipeUTKRENLJJI5691-73-49 08:24:0034.0[facility]orial YwyaeypGGFVPFERPP2618-11-19 08:24:006.3[facility]orial LzkbbtdFBQJOGLAOW0598-59-36 08:24:00 Test Item Value Reference Range Interpretation Comments MCH (test code = MCH) 30.7 pg 27.0-31.0 Memorial TsxplzvFQTHYNGSBG1448-96-08 08:24:0090.3[facility] HermannHEMATOLOGY 2019-01-26 08:24:0034.2[facility] WnwlidnULTQHQGDMH4471-44-08 08:24:76284Mzuxrjtz NruescmUIGMMKNFNO0461-68-19 08:24:007.5[facility]orial VvvqvkrTDHTBABSSCUW8399-14-02 08:24:008.6[facility]orial MuuqzylUANWLPGEUMPD7355-80-47 08:24:69220Zcrkpmwh Fitz[place] HJDKXCEZTFTZ8114-75-18 08:24:0027[facility]orial OxogcayMEOKBZMRYNOM8860-62-22 08:24:00 139Memorial RhhvxglKXKBIYIHXFPT6054-85-05 08:24:003.6[facility] Yonis UWDDASGMTFZN9268-51-10 08:24:000.70Memorial LfsyillIPSYMCCLEMKY8565-86-60 08:24:008.4Memorial PoxoqfcUVVJIIHVFNNZ2259-69-37 08:24:48872Ywnllrzw Yonis ESRWSLFOCBYK2094-68-02 08:24:0086Memorial JnlvnpfPCQXRTEGQWDJ9189-27-04 08:24:00 6Memorial ZwbzymyXRJZGAXQWR8319-28-91 08:24:0011.6[facility] HermannHEMATOLOGY 2019-01-26 08:24:003.78[facility]orial UprvsrvRXBSGYKFPP4693-55-98 08:24:0013.3[facility]orial KofxaghBFFLMGJGBN0080-00-35 08:24:0034.0[facility]orial CuvwewfCEQQWLGTVC1844-38-60 08:24:006.3[facility]orial IloqlliRUFXTFACGS2785-73-17 08:24:00 Test Item Value Reference Range Interpretation Comments MCH (test code = MCH) 30.7 pg 27.0-31.0 Memorial LmmgtmnFSVBAMMXHF0995-44-97 08:24:0090.3[facility] HermannHEMATOLOGY 2019-01-26 08:24:0034.2[facility]orial JgbsvmdDKWIWHESDM9878-33-03 08:24:08958Riseniyl XzuhxonPVQELCTASW9469-63-39 08:24:007.5[facility] HermannCHEM FKTPG4190-18-37 09:14:61477Pdxkltzh HermannCHEM RVGHG6695-47-62 09:14:008.5[facility] HermannCHEM VIWZS2427-13-24 09:14:0013.3[facility] HermannCHEM ZMTCB6954-41-51 09:14:0024 [facility] HermannCHEM XKRWQ1557-41-80 09:14:48772Yfmkcptp HermannCHEM PANEL 2019-01-25 09:14:0081Mem[facility] HermannCHEM OHIJN4517-73-37 09:14:002[facility] HermannCHEM BQRIU9126-58-88 09:14:003.3[facility] HermannCHEM TRDIV9660-38-58 09:14:000.60[facility] HermannCHEM LXZWB6609-46-03 09:14:84558Dncpqjey HermannCHEM HWWPY3946-14-32 09:14:29687Hlvtmzru HermannCHEM IVBCB6632-96-31 09:14:008.5 [facility] HermannCHEM GFBJT0903-17-87 09:14:0013.3[facility] HermannCHEM PANEL 2019-01-25 09:14:0024Mem[facility] HermannCHEM KAHGO8939-81-74 09:14:88299Mkmsiwpo HermannCHEM QWGTD6159-60-46 09:14:0081[facility] HermannCHEM XZBVS2886-89-84 09:14:002[facility] HermannCHEM JDNVD6722-03-10 09:14:003.3[facility] HermannCHEM AZDDT7892-17-01 09:14:000.60[facility] HermannCHEM MKGFO4195-94-98 09:14:60743 [facility] HermannMOLECULAR KGKLAYPOJC9033-38-79 16:22:00Negative (01/23/19 11:22 AM)[facility] HermannMOLECULAR HNWJFWCIPV0362-20-93 16:22:00Negative (01/23/19 11:22 AM)[facility] HermannCHEM QQLYM6875-33-99 15:42:002.76[facility] HermannCHEM PANEL 2019-01-23 15:42:002.76[facility] HermannCHEM ORZGD6522-83-73 12:32:000.9[facility] HermannCHEM TIGRT0553-08-31 12:32:000.9[facility] HermannCHEM RPDAD5200-18-99 10:50:002.0[facility] HermannCHEM NCBSR4372-66-58 10:50:44213Eozknrkk HermannCHEM VZPLA9202-51-42 10:50:0023[facility] HermannCHEM KTSKE6274-76-67 10:50:43244 [facility] HermannCHEM ULPDS3709-69-71 10:50:003.1[facility] HermannCHEM PANEL 2019-01-23 10:50:07998Ryvfnzgt HermannCHEM XJXCW2450-97-68 10:50:005[facility] HermannCHEM CWJWC2692-85-67 10:50:000.50[facility] HermannCHEM DJHLD9082-98-49 10:50:007.8[facility] HermannCHEM TMJFF6919-47-37 10:50:0083[facility] HermannCHEM TRJQW7390-83-30 10:50:0010.1Memorial RirwbpqKKHQBUWZIN2458-67-37 10:50:000.2 Memorial BgpmpioEFKSBVHGRN4247-62-32 10:50:000.8[facility] HermannHEMATOLOGY 2019-01-23 10:50:005.5Memorial IonfghpZOUXKSFJOY2406-92-17 10:50:002.2[facility]orial MdfgikpHZKSZWINAD6901-40-51 10:50:000.1Memorial HvuvyyxMYBSVVFGJT0066-61-10 10:50:0063.6Memorial DpiqrzsVZTPPFFZKL3662-85-58 10:50:008.9[facility] Yonis SKUGFGOQEI4078-91-51 10:50:002.3[facility]orial KslmurwEXTECISFJP7905-35-70 10:50:00 Normal (01/23/19 5:50 AM)[facility]orial KbufqnuZMHCWEZXHP8761-05-81 10:50:00Normal (01/23/19 5:50 AM)[facility]orial HopmuqvTCJTBYETIK9369-89-00 10:50:0025.1[facility] UbnqrnwBUTQQEVOFK0358-22-99 10:50:0013.1[facility]orial WqgpfczSHDPQLCJLZ7002-55-06 10:50:52261Dwkswwrk HgbbfrbNQLXCJEUSH2661-56-19 10:50:007.7[facility] Yonis VGDFCPTRGL1132-41-17 10:50:008.6[facility]orial JgqqbnuPQZAHCUGQA2890-27-77 10:50:00 10.0Memorial TxiulzcYVQLTVELRR9272-24-80 10:50:0034.6[facility] HermannHEMATOLOGY 2019-01-23 10:50:0028.7[facility] YhzxxtrVQNBXDUMIE6197-89-29 10:50:0087.8[facility]orial FudvnfgZPVOOFSUGQ5980-00-62 10:50:00 Test Item Value Reference Range Interpretation Comments MCH (test code = MCH) 30.4 pg 27.0-31.0 Memorial XuytoylNILTQTXUHR5146-28-56 10:50:003.27[facility] HermannCHEM PANEL 2019-01-23 10:50:002.0[facility] HermannCHEM QCWOB5975-57-30 10:50:13542Qyfqhsgr HermannCHEM XIARN8834-17-87 10:50:0023[facility] HermannCHEM LASVV6887-24-35 10:50:25742Hwbpcxze HermannCHEM MOKAS8456-80-12 10:50:003.1[facility] HermannCHEM YEEQS4276-37-92 10:50:84284Oyhxopcm HermannCHEM KCVFY6870-47-04 10:50:005 [facility] HermannCHEM USYPF0169-17-61 10:50:000.50[facility] HermannCHEM PANEL 2019-01-23 10:50:007.8[facility] HermannCHEM VWWEQ7797-20-13 10:50:0083[facility] HermannCHEM GEGXA0021-44-19 10:50:0010.1[facility] GubwniyRCNNWAIOAD2041-56-15 10:50:000.2[facility] LgwikizFDTFZWNQYT3431-64-00 10:50:000.8[facility] Yonis PBOMCWQOGR6826-90-49 10:50:005.5[facility] YtqdcugHYDUDJCWBI0344-72-91 10:50:002.2 Memorial JkgniodTPWMJPTVGU1162-26-80 10:50:000.1[facility] HermannHEMATOLOGY 2019-01-23 10:50:0063.6[facility] UgtolcsUZCLCUSDVA5662-91-10 10:50:008.9[facility] AcypkuqYPBCYSTAWH7749-28-82 10:50:002.3[facility] GhjtepbSSPNKPLNCG9708-71-72 10:50:00Normal (01/23/19 5:50 AM)[facility] YniwzwkHBUUEXXSFR3692-61-87 10:50:00 Normal (01/23/19 5:50 AM)[facility] MdptvdwDYPPHLQWUN6386-51-11 10:50:0025.1[facility] QyanddzJIHXSMIADF9756-50-60 10:50:0013.1[facility] MfwxyhtWIYQDIPZXE5683-35-21 10:50:50146Lrljonts HixnarmJWIFNDHFZC8072-25-78 10:50:007.7[facility] NKCKTXQYUB3237-21-33 10:50:008.6[facility] XbukxwmGWQAJYEUGN7875-47-73 10:50:00 10.0[facility] QjhlbyhOEPYFEKARX2951-80-31 10:50:0034.6[facility] HermannHEMATOLOGY 2019-01-23 10:50:0028.7[facility] SgdyglaYTYMAHCCWQ3441-83-20 10:50:0087.8[facility] TnopiesZCPBDKMSCE1368-67-55 10:50:00 Test Item Value Reference Range Interpretation Comments MCH (test code = MCH) 30.4 pg 27.0-31.0 Memorial ZstauzzPHMUJLHXJW4345-38-51 10:50:003.27[facility] HermannCHEM PANEL 2019-01-22 11:32:002.4[facility] HermannCHEM IUQQI9380-90-61 11:32:002.4[facility] HermannCHEM NVGLF5845-94-46 09:04:003.0[facility] HermannCHEM RUZSO7571-54-72 09:04:003.0[facility] HermannURINE AND WPGKH2018-19-29 07:14:00<1[facility]annURINE AND JYJRP3727-92-80 07:14:0025[facility]annURINE AND STOOL 2019-01-22 07:14:002[facility]annURINE AND RXTFN3056-15-02 07:14:00Light Yellow *NA*(01/22/19 2:14 AM)[facility] AND DWTDN2238-08-88 07:14:00 Clear (01/22/19 2:14 AM)[facility] AND NNCOZ7972-69-02 07:14:00 Test Item Value Reference Range Interpretation Comments UA Spec Grav (test code = UA Spec 1.014 1 Grav) [facility] AND NGNQP9753-23-97 07:14:00 Test Item Value Reference Range Interpretation Comments UA pH (test code = UA pH) 6.0 1 5.0-8.0 [facility] [id number] 07:14:00Negative (01/22/19 2:14 AM) [facility] [id number] 07:14:00Negative *NA*(01/22/19 2:14 AM) [facility] [id number] 07:14:00Negative *NA*(01/22/19 2:14 AM) [facility] [id number] 07:14:00Negative *NA*(01/22/19 2:14 AM) [facility] [id number] 07:14:00Negative (01/22/19 2:14 AM) [facility] [id number] 07:14:00Negative (01/22/19 2:14 AM) [facility] [id number] 07:14:00Negative (01/22/19 2:14 AM) [facility] [id number] 07:14:00<1[facility] [id number] 07:14:0025[facility] [id number] 07:14:002 [facility] [id number] 07:14:00Light Yellow *NA*(01/22/19 2:14 AM)[facility] [id number] 07:14:00Clear (01/22/19 2:14 AM) [facility] [id number] 07:14:00 Test Item Value Reference Range Interpretation Comments UA Spec Grav (test code = UA Spec 1.014 1 Grav) [facility] [id number] 07:14:00 Test Item Value Reference Range Interpretation Comments UA pH (test code = UA pH) 6.0 1 5.0-8.0 [facility] [id number] 07:14:00Negative (01/22/19 2:14 AM) [facility] [id number] 07:14:00Negative *NA*(01/22/19 2:14 AM) [facility] [id number] 07:14:00Negative *NA*(01/22/19 2:14 AM) [facility] [id number] 07:14:00Negative *NA*(01/22/19 2:14 AM) [facility] [id number] 07:14:00Negative (01/22/19 2:14 AM) [facility] [id number] 07:14:00Negative (01/22/19 2:14 AM) [facility] [id number] 07:14:00Negative (01/22/19 2:14 AM) [facility] [id number] 05:16:000.90[facility] [id number] 05:16:000.90[facility] [id number] 05:01:00Negative (01/22/19 12:01 AM)[facility] [id number] 05:01:00<0.02 [facility] [id number] 05:01:0049[facility] 2019-01-22 05:01:000.6[facility]CHE[facility] UIWKS0673-53-83 05:01:86650Lzcuiwpv HermannCHEM UZQXT5586-62-22 05:01:004.0[facility]annCHE[facility] LDYXE8866-26-56 05:01:0017[facility]annCHE[facility] VYWMC5002-86-38 05:01:0025[facility]annCHE[facility] LQLMS2994-48-37 05:01:008.1[facility]annCHE[facility] DDAGG9089-06-39 05:01:00 Test Item Value Reference Range Interpretation Comments B/C Ratio (test code = B/C Ratio) 20 1 6-25 [facility] CBJZW4899-45-10 05:01:00 Test Item Value Reference Range Interpretation Comments A/G Ratio (test code = A/G Ratio) 1.0 1 0.7-1.6 [facility] KKSCH1446-21-62 05:01:004.1[facility]annCHEM PANEL 2019-01-22 05:01:006.90[facility] KcpibfwWJKZOFGRTVAMJ6428-20-17 05:01:00Negative *NA*(01/22/19 12:01 AM)[facility] SfqjyhvYECZQWTRON8003-71-84 05:01:000.1[facility] MjrndkuFZBOCIPUCO5684-03-91 05:01:000.7[facility] GpcyyeeMLTWZRIYEJ1698-14-88 05:01:000.0[facility] CwzhmvuHXQZBPMOXL2117-02-17 05:01:000.0[facility] GTXEQGOCFE0793-42-41 05:01:000.9[facility] ErfkayvJHNBIQNYCY9842-40-68 05:01:008.6 [facility] IhqizpcYKGDJLVGTQ3573-91-32 05:01:000.6[facility]annHEMATOLOGY 2019-01-22 05:01:0086.5[facility] VagyyjcTOGUBRJKSU4039-69-01 05:01:005.7[facility] KmrbblwXQWIWNHYAQ3387-88-59 05:01:006.9[facility] ZajxiwdQKRZCYBFXQ0740-20-20 05:01:009.9[facility] GmsnaptRSIESIWWHU1113-99-31 05:01:0032.8[facility] RFRBQATBBP3176-27-72 05:01:0013.6[facility] PxefkkaBSOTYHYKXV1241-08-88 05:01:00 443[facility] WxgwbitGXUNIPJWEJ9870-39-93 05:01:007.3[facility]annHEMATOLOGY 2019-01-22 05:01:0014.0[facility] RbvpastDICDZZYGVU0462-39-22 05:01:004.85[facility] AacrbavZZUXCCVSTK2023-19-61 05:01:0042.7[facility] BwbmspaTMITPTDOJL8719-03-49 05:01:00 Test Item Value Reference Range Interpretation Comments MCH (test code = MCH) 29.0 pg 27.0-31.0 [facility] XorsirdKKIRJYPYUM8364-34-14 05:01:0088.2[facility]HE[facility]OLOGY 2019-01-22 05:01:00 Test Item Value Reference Range Interpretation Comments INR (test code = INR) 0.96 1 0.85-1.17 [facility] UehhmifNUFGJLOWBA9122-50-39 05:01:00 Test Item Value Reference Range Interpretation Comments PT (test code = PT) 12.6 s 12.0-14.7 [facility]AIYIBUANQ2004-10-81 05:01:00 Test Item Value Reference Range Interpretation Comments PTT (test code = PTT) 25.9 s 22.9-35.8 [facility] ZPEXWVK8560-27-99 05:01:00Negative (01/22/19 12:01 AM) [facility]CARDIAC JIFHKVY3544-23-06 05:01:00<0.02[facility] CARDIAC NREUNAJ6245-87-72 05:01:0049[facility]annCHE[facility] YLLJT9420-20-87 05:01:000.6[facility]annCHEM PCHUA2053-11-21 05:01:34266Aqifwrcl HermannCHEM GFJEY1456-15-38 05:01:004.0[facility]annCHE[facility] ZKMJT9961-00-69 05:01:0017 [facility]CHE[facility] RRAVF1841-63-76 05:01:0025[facility]annCHEM PANEL 2019-01-22 05:01:008.1[facility]annCHE[facility] PFCIZ1769-18-27 05:01:00 Test Item Value Reference Range Interpretation Comments B/C Ratio (test code = B/C Ratio) 20 1 6-25 [facility] ACJGY6116-88-35 05:01:00 Test Item Value Reference Range Interpretation Comments A/G Ratio (test code = A/G Ratio) 1.0 1 0.7-1.6 [facility] AURMP6015-19-60 05:01:004.1[facility]annCHEM PANEL 2019-01-22 05:01:006.90[facility] YutvuaoKAUYWWGUGXFOM4581-41-00 05:01:00Negative *NA*(01/22/19 12:01 AM)[facility] GpavksgBGEJKHMNWF1876-24-96 05:01:000.1[facility] HtwpgczCSVWLMYJNW1578-00-17 05:01:000.7[facility] HeckinbJZWAUREUIX1920-98-38 05:01:000.0[facility] LtgnzqtZWFITOQAYZ2467-36-81 05:01:000.0[facility] QEFHFNNSMO2923-52-85 05:01:000.9[facility] TfkgaryTPCVPBFEFU3968-75-58 05:01:008.6 [facility] VniszklURTTKLLKEL0547-07-55 05:01:000.6[facility]annHEMATOLOGY 2019-01-22 05:01:0086.5[facility] KwfetfmODBQSTGONV7960-49-58 05:01:005.7[facility] GrmbcjgQFVOZGCSWG9125-29-40 05:01:006.9[facility] HjdedxvYSQBQXXJCF6601-88-43 05:01:009.9[facility] JnnacnwIQDSUFOEZZ8475-31-77 05:01:0032.8[facility] BPFWDRGBYV6544-15-62 05:01:0013.6[facility] EzotvjxVDJDYHBQXW7082-81-77 05:01:00 443[facility] IhgrjljTUPKSLBYGN2930-54-82 05:01:007.3[facility]annHEMATOLOGY 2019-01-22 05:01:0014.0[facility] SldurwsWCZHODKLTC6017-01-51 05:01:004.85[facility] IpdsyyhANEHOOGYGX7814-38-89 05:01:0042.7[facility] DmmpyakHXQDAHATFQ4973-96-13 05:01:00 Test Item Value Reference Range Interpretation Comments MCH (test code = MCH) 29.0 pg 27.0-31.0 [facility]CgwivfsNHOWYNGLQG2582-02-89 05:01:0088.2[facility]annHEMATOLOGY 2019-01-22 05:01:00 Test Item Value Reference Range Interpretation Comments INR (test code = INR) 0.96 1 0.85-1.17 [facility]DKXGRLBKVQ5118-72-48 05:01:00 Test Item Value Reference Range Interpretation Comments PT (test code = PT) 12.6 s 12.0-14.7 [facility]ZXRLKWQR5825-63-37 05:01:00 Test Item Value Reference Range Interpretation Comments PTT (test code = PTT) 25.9 s 22.9-35.8 [facility]LhbpiwpTES2M7480-67-89 14:36:00 Test Item Value Reference Range Interpretation [...] 0.00-0.01 N code = ETOHU) Comprehensive Metabolic Attex5025-61-70 14:36:00 Test Item Value Reference Range Interpretation [...] the [employer],http :[email or web address] ep.nih.gov Urinalysis Nzuborqr7787-51-59 14:32:00 Test Item Value Reference Range Interpretation Comments Color (test code = COLOR) Yellow Yellow,Straw,Pl N yellow Clarity (test code = Clear Clear N CLAR) Specific [place] (test 1.024 1.001-1.035 N code = SPGR) [...] code = Few /HPF BACT) CBC with Hgxyhfytdfwk8415-73-60 14:21:00 Test Item Value Reference Range Interpretation [...] code = ALYMPH) 3.0 K/cumm 0.5-4.6 N [place] Abs (test code = AMONO) 0.5 K/cumm 0.0-1.2 N Eos Abs (test code = AEOS) 0.19 K/cumm 0.00-0.74 N Baso Abs (test code = ABASO) 0.1 K/cumm 0.00-0.21 N
== END 2021-09-03 13:19 | disposition home or self-care (01) ==
LOC: ER 12:22
DX: F41.1 Generalized anxiety disorder (principal); F15.90 Other stimulant use, unspecified, uncomplicated; Z88.8 Allergy status to other drugs, medicaments and biological substances
CPT/HCPCS: 93005; 99284

== ENCOUNTER 2021-09-04 16:01 | Emergency (ER) | payer OTHER ==
[2021-09-04] MEDS ORDERED: NA CHLORIDE 0.9% 1,000 ML ONE (16:39)
[2021-09-04 17:12] LABS: Absolute Lymphocytes (CBC) 2.3 K/uL (0.7-4.9); Basophils % 0.9 % (0-1.3); Hematocrit 40.8 % (36.0-45.0); MPV 7.5 fL (7.6-11.3); RBC Red Blood Cell Count 4.75 M/uL (3.86-4.86)
[2021-09-04 17:18] LABS: Protime INR 1.04
[2021-09-04 17:40] LABS: ALT/SGPT 30 U/L (12-78); Albumin 3.8 g/dL (3.4-5.0); Alkaline Phosphatase 83 U/L (45-117); BUN Blood Urea Nitrogen 9 mg/dL (7-18); Bicarbonate 26 mmol/L (21-32); Bilirubin Direct 0.1 mg/dL (0-0.2); Glucose Level 91 mg/dL (74-106); Protein, Total 7.5 g/dL (6.4-8.2); Sodium Level 143 mmol/L (136-145)
[2021-09-04] MEDS ORDERED: LORazepam 2 MG/ML VIAL ONE (17:45)
[2021-09-04 17:47] LABS: AST/SGOT 22 U/L (15-37); Bilirubin Total 0.5 mg/dL (0.2-1.0); Magnesium 2.3 mg/dL (1.8-2.4); Potassium 3.3 mmol/L (3.5-5.1); Troponin (Emerg Dept Use Only) < 0.02 ng/mL (0.0-0.045)
--- NOTE | 2021-09-04 17:50 | RAD REPORT ---
EXAM DESCRIPTION: RAD - Chest Single View - 09/04/2021 5:14 pm CLINICAL HISTORY: CHEST PAIN COMPARISON: August 29 TECHNIQUE: AP portable chest image was obtained 09/04/2021 5:14 pm . FINDINGS: Lungs are clear. Heart and vasculature are normal. No measurable pleural effusion and no p neumothorax. No acute bony abnormality seen. No acute aortic findings suspected. IMPRESSION: No acute cardiopulmonary process.
[2021-09-04] MEDS ORDERED: POTASSIUM 25 MEQ EFFERV TAB ONE (19:17)
--- NOTE | 2021-09-04 19:25 | EDPHYS ---
Physician Documentation [facility] Name: Tiffany Quinn Age: 51 yrs Sex: Female : 1970 Arrival Date: 09/04/2021 Time: 16:08 Bed 20 Private MD: ED Physician James Eric HPI: 09/04 16:15 This 51 yrs old Female presents to ER via EMS with complaints of Chest Pain. cp 16:15 The patient or guardian reports chest pain that is located primarily in the anterior cp chest wall. 16:15 Associated signs and symptoms: Pertinent negatives: abdominal pain, cough, fever, cp vomiting, wheezing. 16:15 Duration: The patient or guardian reports a single episode, that is still ongoing. cp Severity of pain: in the emergency department the pain is a 2 / 10. 16:15 EMS reports patient admitted to using methamphetamine at 1530 today. 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 - Social history:: Smoking status: unknown. ROS: 16:20 Constitutional: Negative for body aches, chills, fever, poor PO intake. cp 16:20 Eyes: Negative for injury, pain, redness, and discharge. cp 16:20 ENT: Negative for ear pain, sore throat, difficulty swallowing, difficulty handling secretions. 16:20 Cardiovascular: Positive for chest pain. 16:20 Respiratory: Negative for cough, shortness of breath, wheezing. 16:20 Abdomen/GI: Negative for abdominal pain, nausea, vomiting, and diarrhea. 16:20 Back: Negative for pain at rest, pain with movement. 16:20 Neuro: Negative for altered mental status, headache, syncope, weakness. 16:20 All other systems are negative. Exam: 16:25 Constitutional: The patient appears in no acute distress, alert, awake, cp non-diaphoretic, non-toxic, well developed, well nourished. 16:25 Head/Face: Normocephalic, atraumatic. cp 16:25 Eyes: Periorbital structures: appear normal, Pupils: pinpoint, bilaterally, Extraocular movements: intact throughout, Conjunctiva: normal, no exudate, no injection, Sclera: no appreciated abnormality, Lids and lashes: appear normal, bilaterally. 16:25 ENT: External ear(s): are unremarkable, Nose: is normal, Mouth: Lips: moist, Oral mucosa: moist, Posterior pharynx: Airway: no evidence of obstruction, patent. 16:25 Neck: ROM/movement: is normal, is supple, without pain, no range of motions limitations. 16:25 Chest/axilla: Inspection: normal, Palpation: is normal, no crepitus, no tenderness. 16:25 Cardiovascular: Rate: tachycardic, Rhythm: regular, Edema: is not appreciated, JVD: is not appreciated. 16:25 Respiratory: the patient does not display signs of respiratory distress, Respirations: normal, no use of accessory muscles, no retractions, labored breathing, is not present, Breath sounds: are clear throughout, no decreased breath sounds, no stridor, no wheezing. 16:25 Abdomen/GI: Inspection: abdomen appears normal, Palpation: abdomen is soft and non-tender, in all quadrants. 16:25 Neuro: Orientation: to person, place, situation, Mentation: able to follow commands, Motor: moves all fours, strength is normal. 16:25 Psych: Behavior/mood is anxious, Affect is animated, Patient has no thoughts/intents to harm self or others. Delusions/hallucinations are not present. 17:03 ECG was reviewed by the Attending Physician. cp Vital Signs: 16:09 BP 146 / 108; Pulse 118; Resp 20; Temp 97.8; Pulse Ox 97% on R/A; jt3 17:16 BP 170 / 95; Pulse 113; Resp 20; Pulse Ox 97% on R/A; ss 17:30 BP 159 / 97; Pulse 105; Resp 18; Temp 98.0; Pulse Ox 100% ; sl2 18:00 BP 141 / 89; Pulse 104; Resp 18; Pulse Ox 98% ; sl2 19:30 BP 124 / 81; Pulse 96; Resp 22; Temp 98.1(O); Pulse Ox 98% on R/A; sl2 MDM: 16:20 Patient medically screened. 17:00 Differential diagnosis: abnormal EKG, acute myocardial infarction, acute pericarditis, cp anxiety, chest wall pain, costochondritis, myocarditis, pancreatitis, pericarditis, pneumonia, pneumothorax, pulmonary embolus. 19:24 Data reviewed: vital signs, nurses notes, lab test result(s), EKG, radiologic studies, cp plain films. 19:24 Test interpretation: by ED physician or midlevel provider: ECG, plain radiologic cp studies. Response to treatment: the patient's symptoms have markedly improved after treatment, and as a result, I will discharge patient. ED course: VSS. Patient reports symptoms improved and requests discharge to home. 09/04 16:10 Order name: Basic Metabolic Panel 09/04 16:10 Order name: CBC with Diff; Complete Time: 18:00 09/04 18:00 Interpretation: Normal except: PLT 569; MPV 7.5. 09/04 16:10 Order name: LFT's; Complete Time: 18:00 09/04 18:53 Interpretation: Normal except: GLOB 3.7; A/G 1.0. 09/04 16:10 Order name: Magnesium; Complete Time: 18:00 09/04 16:10 Order name: PT-INR; Complete Time: 18:00 09/04 16:10 Order name: Troponin (emerg Dept Use Only); Complete Time: 18:00 09/04 16:10 Order name: XRAY Chest (1 view); Complete Time: 18:00 09/04 18:54 Interpretation: Report review. 09/04 16:10 Order name: EKG; Complete Time: 16:10 09/04 16:10 Order name: Basic Metabolic Panel; Complete Time: 18:00 EDIA 09/04 18:53 Interpretation: Normal except: CL 108; GFR 73; K 3.3. 09/04 16:10 Order name: Cardiac monitoring; Complete Time: 16:20 09/04 16:10 Order name: EKG - Nurse/Tech; Complete Time: 17:05 09/04 16:10 Order name: IV Saline Lock; Complete Time: 17:04 09/04 16:10 Order name: Labs collected and sent; Complete Time: 17:04 cp 09/04 16:10 Order name: O2 Per Protocol; Complete Time: 16:20 cp 09/04 16:10 Order name: O2 Sat Monitoring; Complete Time: 16:20 cp EC:03 Rate is 113 beats/min. Rhythm is regular. TX interval is normal. QRS interval is cp normal. QT interval is normal. T waves are Inverted in lead aVR. Interpreted by me. Reviewed by me. Administered Medications: 17:05 Drug: NS 0.9% 1000 ml Route: IV; Rate: 1000 ml/hr; Site: Other; sl2 17:51 Follow up: Response: No adverse reaction sl2 18:20 Follow up: Response: No adverse reaction; IV Status: Completed infusion; IV Intake: sl2 1000ml 17:45 Drug: Ativan (LORazepam) 1 mg Route: IVP; Site: Other; sl2 18:31 Follow up: Response: No adverse reaction; Marked relief of symptoms sl2 19:21 Drug: Potassium Effervescent Tablet 50 mEq Route: PO; sl2 19:30 Follow up: Response: No adverse reaction sl2 Disposition Summary: 09/04/21 19:24 Discharge Ordered Location: Home cp Problem: an ongoing problem cp Symptoms: have improved cp Condition: Stable cp Diagnosis - Adverse effect of amphetamines, subsequent encounter cp - Chest pain, unspecified cp Followup: cp - With: Private Physician - When: 1 - 2 days - Reason: Recheck today's complaints Discharge Instructions: - Discharge Summary Sheet cp - Nonspecific Chest Pain, Adult cp - Methamphetamines Use Disorder cp - Aspirin and Your Heart cp Forms: - Medication Reconciliation Form cp - Thank You Letter cp - Antibiotic Education cp - Prescription Opioid Use cp Addendum: 09/08/2021 06:42 Co-signature as Attending Physician, James Eric MD PA/RATER ASSOCIATE's history reviewed, m a2 patient interviewed, and examined. I agree with assessment and care plan and confirm the diagnosis (es) above. Signatures: Dispatcher [employer] EDMS Bill Hay PA PA cp Alzahri, Mohammad, MD MD ma2 Aleksandra Jimenez RN RN sl2 Lemuel Capone RN RN jt3 Corrections: (The following items were deleted from the chart) 09/04 18:53 18:01 Normal except: CL 108; GFR 73. cp cp 19:49 16:15 LITHIUM+C.LAB.BRZ ordered. EDMS EDMS
--- NOTE | 2021-09-04 19:25 | ER ---
Nurse's Notes [facility] Name: Tiffany Quinn Age: 51 yrs Sex: Female : 1970 Arrival Date: 09/04/2021 Time: 16:08 Bed 20 Private MD: Diagnosis: Adverse effect of amphetamines, subsequent encounter;Chest pain, unspecified Presentation: 09/04 16:09 Chief complaint: EMS states: Pt. arrives from home endorsing chest pain that is 2/10. jt3 Pt. states she used Meth at 3:30PM today. Patient's airway is patent. Pt. is speaking with flight of ideas. Denies SI. Patient is currently cooperative. Coronavirus screen: Vaccine status: Patient reports receiving the 2nd dose of the covid vaccine. Ebola Screen: Patient negative for fever greater than or equal to 101.5 degrees Fahrenheit, and additional compatible Ebola Virus Disease symptoms Patient denies exposure to infectious person. Patient denies travel to an Ebola-affected area in the 21 days before illness onset. Initial Sepsis Screen: Does the patient meet any 2 criteria? HR > 90 bpm. Does the patient have a suspected source of infection? No. Patient's initial sepsis screen is negative. Risk Assessment: Do you want to hurt yourself or someone else? Patient reports no desire to harm self or others. Onset of symptoms was September 04, 2021. 16:09 Method Of Arrival: EMS: [facility] jt3 16:09 Acuity: MANUEL 3 jt3 Triage Assessment: 16:11 General: Appears unkempt, Behavior is restless. Pain: Complains of pain in chest Pain jt3 currently is 2 out of 10 on a pain scale. Cardiovascular: Rhythm is sinus tachycardia. Respiratory: No deficits noted. RISK SPECIALIST: 19:30 LMP N/A - Hysterectomy sl2 Historical: - Allergies: 16:11 Haldol; jt3 16:11 Pepcid; jt3 16:11 Toradol; jt3 - Home Meds: 16:11 lithium carbonate 300 mg Oral tab 1 cap 3 times per day [Active]; jt3 - PMHx: 16:11 Bipolar disorder; Anxiety; jt3 - PSHx: 16:11 breast augmentation; Cholecystectomy; hernia repair; jt3 - Immunization history:: Adult Immunizations unknown. - Social history:: Smoking status: unknown. Screenin:40 Abuse screen: Denies threats or abuse. sl2 17:40 Nutritional screening: No deficits noted. Tuberculosis screening: No symptoms or risk sl2 factors identified. Fall Risk None identified. No fall in past 12 months (0 pts). No secondary diagnosis (0 pts). No IV (0 pts). Gait- Normal/Bed Rest/Wheelchair (0 pts) Mental Status- Oriented to own ability (0 pts). Total Ramirez Fall Scale indicates No Risk (0-24 pts). Assessment: 16:30 General: Appears uncomfortable, unkempt, well developed, Behavior is cooperative, sl2 anxious, Reports chest pain after taking metamfetamine today. 16:30 Pain: Pain does not radiate. Pain currently is 5 out of 10 on a pain scale. Quality of sl2 pain is described as aching, Pain began suddenly, Is continuous. Neuro: No deficits noted. Cardiovascular: Reports chest pain, Denies fatigue, lightheadedness, palpitations, Capillary refill < 3 seconds Pulses are all present. Rhythm is sinus tachycardia Chest pain is described as mild, quality is heaviness, pressure, is located in left. Respiratory: No deficits noted. Airway is patent Trachea midline Respiratory effort is even, unlabored, Respiratory pattern is regular, symmetrical, Breath sounds are clear bilaterally. GI: No deficits noted. No signs and/or symptoms were reported involving the gastrointestinal system. : No deficits noted. No signs and/or symptoms were reported regarding the genitourinary system. EENT: No deficits noted. 17:15 Reassessment: UDS obtained and resulted last two days ago. OKAY with PANFILO Hoff to cancel UDS ordered today. 19:30 Reassessment: Appears restless: requesting to go home; voices no complaints; discharge sl2 instructions given with v/u; VSS. Patient denies pain at this time. Patient states feeling better. Vital Signs: 16:09 BP 146 / 108; Pulse 118; Resp 20; Temp 97.8; Pulse Ox 97% on R/A; jt3 17:16 BP 170 / 95; Pulse 113; Resp 20; Pulse Ox 97% on R/A; ss 17:30 BP 159 / 97; Pulse 105; Resp 18; Temp 98.0; Pulse Ox 100% ; sl2 18:00 BP 141 / 89; Pulse 104; Resp 18; Pulse Ox 98% ; sl2 19:30 BP 124 / 81; Pulse 96; Resp 22; Temp 98.1(O); Pulse Ox 98% on R/A; sl2 ED Course: 16:08 Patient arrived in ED. jt3 16:09 Bill Hay PA is PHCP. cp 16:09 James Eric MD is Attending Physician. cp 16:11 Triage completed. jt3 16:13 Arm band placed on right wrist. jt3 16:20 Aleksandra Jimenez, JIGNA is Primary Nurse. sl2 17:13 Basic Metabolic Panel Sent. 5 17:13 PT-INR Sent. 5 17:13 CBC with Diff Sent. 5 17:14 XRAY Chest (1 view) In Process Unspecified. EDMS 17:14 LFT's Sent. 5 17:14 Magnesium Sent. 5 17:14 Troponin (emerg Dept Use Only) Sent. 5 17:14 Basic Metabolic Panel Sent. 5 17:15 Initial lab(s) drawn, by ED staff, sent to lab. EKG done, by ED staff, reviewed by adenike Eric MD. 17:40 Patient has correct armband on for positive identification. Placed in gown. Bed in low sl2 position. Call light in reach. Side rails up X2. monitor car operator on. Pulse ox on. NIBP on. 17:40 No provider procedures requiring assistance completed. Inserted saline lock: 22 gauge sl2 in right ,using aseptic technique. foot. 19:30 Patient maintains SpO2 saturation greater than 95% on room air. sl2 19:30 IV discontinued, intact, bleeding controlled, No redness/swelling at site. Pressure sl2 dressing applied. Administered Medications: 17:05 Drug: NS 0.9% 1000 ml Route: IV; Rate: 1000 ml/hr; Site: Other; sl2 17:51 Follow up: Response: No adverse reaction sl2 18:20 Follow up: Response: No adverse reaction; IV Status: Completed infusion; IV Intake: sl2 1000ml 17:45 Drug: Ativan (LORazepam) 1 mg Route: IVP; Site: Other; sl2 18:31 Follow up: Response: No adverse reaction; Marked relief of symptoms sl2 19:21 Drug: Potassium Effervescent Tablet 50 mEq Route: PO; sl2 19:30 Follow up: Response: No adverse reaction sl2 Intake: 18:20 IV: 1000ml; Total: 1000ml. sl2 Outcome: 19:24 Discharge ordered by . francisco j 19:30 Discharged to home ambulatory. sl2 19:30 Condition: improved 19:30 Discharge instructions given to patient, Instructed on discharge instructions, follow up and referral plans. Demonstrated understanding of instructions, follow-up care. 19:54 Patient left the ED. sl2 Signatures: Dispatcher [employer] EDPreethi Rodriguez, RN RN ss Bill Hay PA PA cp Martinez, Maria 5 Aleksandra Jimenez RN RN sl2 Lemuel Capone RN RN jt3
[2021-09-04 20:20] VITALS: O2SAT 98
[2021-09-04 20:21] VITALS: BP 124/81; TEMP 98.1
--- NOTE | 2021-09-05 20:37 | EKG ---
Test Date: 2021-09-04 Test Time: 17:00:43 Armored Car Guard And Driver: NORA MEASUREMENT RESULTS: Intervals: Rate: 113 WV: 128 QRSD: 80 QT: 348 QTc: 477 [place]: P: 28 WV: 128 QRS: -17 T: 45 INTERPRETIVE STATEMENTS: Sinus tachycardia Anterior infarct, age undetermined Abnormal ECG Compared to ECG 09/02/2021 06:22:11 Sinus rhythm no longer present Myocardial infarct finding still present Electronically Signed On 09-05-21 20:35:11 FLIGHT ATTENDANT/INFLIGHT SUPERVISOR by Tito Smiley
--- OUTSIDE RECORDS SUMMARY | 2021-09-06 21:46 | XMS REPORT | Continuity of Care Document ---
:1970 Author Organization [facility] t Address [address] [place] [address] Care Team Providers Name Role Phone UNKNOWN Primary Care Physician Unavailable Jackson DO Attending Clinician JACKSON Attending Clinician Unavailable Chente Attending Clinician Unavailable Chente Attending Clinician Unavailable AFUWAPE Attending Clinician Unavailable Hcente Admitting Clinician Unavailable AFUWAPE Admitting Clinician Unavailable Payers Payer Name Policy Type Policy Number Effective Date Expiration Date S ource Problems Condition Condition Condition Status Onset Resolution Last Treating Co mments Source Name Details Category Date Date Treatment Clinician Date LOW PB Diagnosis Active 2019-01-22 Mem oria 3 01:52:00 l LOW PB 00:00: [place] 00 Active 01/21/2019 [facility] INFECTIOUS Diagnosis Active 2019-02-06 Memoria GASTROENTE 330 08:58:00 l RITIS AND 00:00: [place] COLITIS INFECTIOUS 00 GASTROENTE RITIS AND COLITIS Active 01/21/2019 [facility] Irregular Irregular Disease Active Uni vers menstrual menstrual 8-15 ity of cycle cycle 00:00: [address] Skin Skin Disease Active Univers lesion lesion 8-15 ity of 00:00: [address] Psychiatri Psychiatri Disease Active U nivers c disorder c disorder 8-15 it y of 00:00: [address] Well woman Well woman Disease Active U kavita exam with exam with 8-15 ity of routine routine 00:00: [place] gynecologi gynecologi 00 Me dical nicky exam nicky exam Branch INFECTIOUS Diagnosis Active 2019-02-06 Memoria GASTROENTE 08:58:00 winifred WALTON AND Yonis COLITIS, INFECTIOUS GASTROENTE RITIS AND COLITIS, Active [facility] Allergies, Adverse Reactions, Alerts Allergy Allergy Status Severity Reaction(s) Onset Inactive Treating Comm ents Source Name Type Date Date Clinician NO KNOWN Drug Active Univers ALLERGIE Class ity of S [facility] Phenerga Phenerga Active Memori a n n l Yonis Social History Social Habit Start Date Stop Date Quantity Comments Source [facility] of C[facility] Tobacco Comment 2-3 cigs a day [facility] Exposure to Not sure [facility] SARS-CoV-2 [facility] (event) [place] Tobacco use and 2016-06-08 2016-06-08 Never used [facility] y of exposure 00:00:00 00:00:00 [facility] Alcohol intake 2016-06-08 2016-06-08 Current University 00:00:00 00:00:00 non-drinker of [facility] alcohol (finding) Branch Smoking Status Start Date Stop Date Source Social History 2019-01-22 05:00:12 [facility] Current some day smoker 2016-06-08 00:00:00 [facility] Medications Ordered Filled Start Stop Current Ordering Indication Dosage Frequency Signature Comments Components Source Medication Medication Date Date Medication? Clinician (SIG) Name Name ondansetron 2019-10 2020- No 4mg 4 mg, [facility] ers (ZOFRAN-ODT 2-05 05- Oral, ity of ) 15:15: 14:16 ONCE, 1 [place] disintegrat 00 :00 dose, Mon Med ical ing tablet 09/30/20 at [facility] 4 mg 0915, Routine ondansetron 2019-10 2020- No 4mg 4 mg, [facility] ers (ZOFRAN-ODT 2-05 05- Oral, ity of ) 14:30: 13:32 ONCE, 1 [place] disintegrat 00 :00 dose, Mon Med ical ing tablet 09/30/20 at [facility] 4 mg 0830, Routine ondansetron 2019-10 Yes [id number] 4mg Take 1 Univers 4 mg 2-07 tablet by ity of disintegrat 00:00: mouth [place] ing tablet 00 every 8 Medica l (eight) Branch hours as needed for Nausea and Vomiting (N/V). ciprofloxac 2019- Yes 500 mg = 1 Memoria in 500 mg 4-04 tab, PO, l oral tablet 17:35: [id number], X Yonis 00 4 day, # 8 tab, 0 Refill(s) Ondansetron 2018- Yes 4 mg = 1 Me moria 4 MG Oral 4-04 tab, PO, l Tablet 17:35: Q6H, PRN [place] [Zofran] 00 Nausea/Vom iting, # 20 tab, [...] 4-04 tab, PO, l oral tablet 17:35: [id number], X [place] 00 4 day, # 8 tab, 0 [...] Memoria 4-01 Route: PO, l 22:00: QPM, [place] Dosing Weight 75, kg, Start date: 01/23/19 [...] Memori a 01-23 interfere l 15:00: w/enteral [place] 00 feedings - Take 1 hr before [...] PO, ONCE, l mEq oral 14:20: 0 [place] tablet, 00 Refill(s) extended release Metronidazo No 500 mg, Mem oria le 500 MG 4-01 PO, l Oral Tablet 14:20: ABXQ8H, 0 H ermann [Flagyl] 00 Refill(s) Ciprofloxac No 500 mg, Mem oria in 500 MG 4-01 PO, l Oral Tablet 14:20: [id number], 0 Yonis [Cipro] 00 Refill(s) potassium Yes 40 mEq, Memor ia chloride 20 4-01 PO, ONCE, l mEq oral 14:20: 0 [place] tablet, 00 Refill(s) extended release Metronidazo No 500 mg, Mem oria le 500 MG 4-01 PO, l Oral Tablet 14:20: ABXQ8H, 0 H ermann [Flagyl] 00 Refill(s) Ciprofloxac No 500 mg, Mem oria in 500 MG 4-01 PO, l Oral Tablet 14:20: [id number], 0 Yonis [Cipro] 00 Refill(s) Potassium No Notes: Memori a Chloride 01-23 (Same as: l 14:17: K-Dur 20) [place] "Do Not Crush" Give with food and [...] oria 3-31 to exceed l 15:03: 400mg/day. [place] (Same As: Ultram) normal No 1,000 mL, [...] 3-31 Route: IM, l 09:47: Drug form: [place] 00 PDR/INJ, PRN, Dosing Weight 75.994, kg, PRN Blood Glucose Results, Start date: 01/22/19 4:47:00 CDT, Duration: 30 day, Stop date: 02/21/19 4:46:00 CDT Dextrose 2019-0 No 12.5 gm, Memor ia 50% Syringe 3-31 25 mL, l 09:47: Route: [place] 00 IVP, Drug Form: INJ, Dosing Weight [...] Memoria 3-31 (Same as: l 08:56: Zofran) [place] 00 MEDICATION WASTE Product Size: 4 mg Product Wasted: ___ mg Zofran No Notes: Memoria 3-31 (Same as: l 08:56: Zofran) [place] 00 MEDICATION WASTE Product Size: 4 mg [...] moria IV 3-31 1,000 l 08:52: ml/hr, [place] 00 Infuse Over: 1 hr, Route: IV, [...] moria IV 3-31 1,000 l 05:44: ml/hr, [place] 00 Infuse Over: 1 hr, Route: IV, 1,000, Drug form: INJ, ONCE, Priority: STAT, Dosing Weight 75.994 kg, Start date: 01/22/19 0:44:00 CDT, Stop date: 01/22/19 0:44:00 CDT Zofran No Notes: Memoria 3-31 (Same as: l 04:52: Zofran) MEDICATION WASTE Product Size: 4 mg Product Wasted: ___ mg Saline No Notes: Memoria Flush 0.9% 3-31 Same as: l 04:52: BD [place] 00 Posiflush Sterile Zofran No Notes: Memoria [...] tablet by ity of HYDROCHLORI 00:00: mouth [place] DE,) 4 mg 00 every 8 Medical tablet (eight) Branch hours. ibuprofen Yes 200mg Take 200 Uni vers (ADVIL) 200 8-15 mg by ity of mg tablet 19:02: mouth [place] 27 every 6 Medical (six) Branch hours as needed. CLONAZEPAM Yes Take by Uni vers (KLONOPIN 8-15 mouth. ity of ORAL) 19:02: [place] 27 Medical Branch CITALOPRAM Yes Take by Uni vers HYDROBROMID 8-15 mouth. ity of E 19:02: [place] (CITALOPRAM 27 Medical ORAL) Branch misoprostol Yes [...] H it y of en-caff 00:00: PRN. [place] (ESGIC) 00 Medical 50-325-40 Branch mg tablet dextroamphe Yes TK 1 T PO U nivers tamine-amph 7-20 BID. ity of etamine 00:00: [place] (ADDERALL) 00 Medical 20 mg Branch tablet amoxicillin 2014-10 Yes 500mg Take 1 Cap Univers (TRIMOX) 1-16 by mouth 3 ity o f 500 mg 00:00: (three) [place] capsule 00 times Medical daily. Branch traMADOL 2014-10 Yes 50mg Take 1 Tab Uni vers (ULTRAM) 50 1-16 by mouth ity of mg tablet 00:00: every 6 [place] 00 (six) Medical hours as Branch needed for Pain (scale 4-6). naproxen 2015-1 Yes 500mg Take 1 Tab Un parul (NAPROSYN) 1-16 by mouth 2 ity of 500 mg 00:00: (two) [place] tablet 00 times Medical daily with Branch meals. Vital Signs Vital Name Observation Time Observation Value Comments Source Systolic blood 2020-09-30 14:00:00 126 mm[Hg] Univer sity of pressure [facility] Diastolic blood 2020-09-30 14:00:00 84 mm[Hg] Unive rsity of [facility] Heart rate 2020-09-30 14:00:00 79 /min Universi ty of [facility] Oxygen saturation in 2020-09-30 14:00:00 98 /min University of Arterial blood by [facility] [place] [facility] Pulse oximetry Branch Body temperature 2020-09-30 13:26:00 37.22 Ruthann [facility] ersity of [facility] Respiratory rate 2020-09-30 13:26:00 16 /min Univ ersity of [facility] Body weight 2020-09-30 13:26:00 72.576 kg Universi ty of [facility] BMI 2020-09-30 13:26:00 28.80 kg/m2 Universi ty of [facility] Systolic blood 2020-09-30 14:00:00 126 mm[Hg] Univer sity of [facility] Diastolic blood 2020-09-30 14:00:00 84 mm[Hg] Unive rsity of [facility] Heart rate 2020-09-30 14:00:00 79 /min Universi ty of [facility] Branch Oxygen saturation in 2020-09-30 14:00:00 98 /min University of Arterial blood by [facility] Pulse oximetry Branch Body temperature 2020-09-30 13:26:00 37.22 Ruthann [facility] ersity of [facility] Branch Respiratory rate 2020-09-30 13:26:00 16 /min Univ ersity [facility] Body weight 2020-09-30 13:26:00 72.576 kg Universi ty of [facility] BMI 2020-09-30 13:26:00 28.80 kg/m2 Universi ty of [facility] Temperature Oral (F) 2019-01-28 01:16:00 98.6 F [facility] [place] Systolic (mm Hg) 2019-01-28 01:16:00 Estrada nadir [place] Diastolic (mm Hg) 2019-01-28 01:16:00 Mem orial [place] Heart Rate 2019-01-28 01:16:00 Memorial [place] Respitory Rate 2019-01-28 01:16:00 Memori al [place] Systolic (mm Hg) 2019-01-27 20:42:00 Estrada rial [place] Diastolic (mm Hg) 2019-01-27 20:42:00 Mem orial [place] Heart Rate 2019-01-27 20:42:00 Memorial [place] Respitory Rate 2019-01-27 20:42:00 Memori al [place] Temperature Oral (F) 2019-01-27 20:42:00 98.5 F Memorial [place] Systolic (mm Hg) 2019-01-27 17:00:00 Estrada rial [place]on[place] Diastolic (mm Hg) 2019-01-27 17:00:00 Mem orial [place] Temperature Oral (F) 2019-01-27 17:00:00 98.5 F Memorial [place] Heart Rate 2019-01-27 17:00:00 [facility] [place] Respitory Rate 2019-01-27 17:00:00 Memori al [place] Height 2019-01-22 14:35:00 157.48 cm Memorial [facility] BMI Calculated 2019-01-22 14:35:00 Memori al [place] Weight 2019-01-22 14:35:00 [facility] [place] Weight 2019-01-22 04:34:00 [facility] [place] Procedures Procedure Date / Time Performed Performing Clinician Sourc e URINALYSIS 2020-09-30 13:27:00 Chuy Jackson o f [facility] ADC,CLC OR LCC ONLY - 2020-09-30 13:27:00 Chuy Jackson [facility] INFLUENZA A & B DIRECT Medical B [place] ANTIGEN COVID-19 (ID NOW RAPID 2020-09-30 13:27:00 Chuy Jackson [facility] TESTING) Medical Branch Encounters Start End Encounter Admission Attending Care Care Encounter Source Date/Time Date/Time Type Type Clinicians Facility Department ID 2019-01-22 Inpatient E [facility] MED [id number] [facility] W 04:39:00 2020-09-30 2020-09-30 Emergency DENIA Jackson [id number] Univers 07:22:00 08:18:00 Chuy Jimenez [id number] i ty of [place] [id number] [facility] [id number] [facility] 084 Branch 2020-09-30 2020-09-30 Emergency [facility] [id number] 07:22:00 08:18:00 Chuy Jimenez [id number] [place] [id number] [place] [id number] 2020-09-30 2020-09-30 Emergency X [facility] ERT [id number] Univers 07:22:00 07:22:00 CHUY tubbs [facility] 2020-03-04 2020-03-14 Inpatient 3 Chente, [facility] PSY [id number] 15:38:00 15:25:00 [facility] 2019-01-22 2019-01-28 Inpatient [facility] [id number] Memoria 04:33:00 04:40:[facility] 2018-02-21 2018-02-20 [facility] [id number] 14:48:00 13:18:00 [facility] Results Test Description Test Time Test Comments Results Result Comments Source ADC,CLC OR LCC ONLY - INFLUENZA A & B DIRECT ANTIGEN 2020-09 14:04:00 Test Item Value Reference Range Interpretation Comme nts Influenza A (test code = 49518-0) Negative Negative Influenza B (test code = 08488-8) Negative Negative Lab Interpretation (test code = 24369-7) Normal [facility] NOW [facility]APID [facility]ING)2020-09-30 14:03:00 Test Item Value Reference Range Interpretation Comments SARS-CoV-2 Rapid ID NOW Not Detected Not Detected (test code = 55656-0) PERRY (test code = PERRY) ID NOW COVID-19 Assay is an isothermal nucleic acid amplification test intended for the qualitative detection of nucleic acid from SARS-CoV-2 viral RNA in nasopharyngeal (INSURANCE ACCOUNT REPRESENTATIVE) specimens. It is used under Emergency Use [...] indicated. Lab Interpretation Normal (test code = 44012-9) [facility]2020-12-07 13:55:00 Test Item Value Reference Range Interpretation Comments APPEARANCE (test code = Hazy Clear A 7944738051) COLOR (test code = Yellow Yellow 8968167462) PH (test code = 4.8-8.0 5225337015) SP GRAVITY (test code = 1.003-1.030 9336564115) GLU U QUAL (test code = Normal Normal 7743913997) BLOOD (test code = Negative Negative 0578347282) KETONES (test code = 5 mg/dL Negative A 6252131926) PROTEIN (test code = Negative Negative 2887-8) UROBILIN (test code = 2.0 mg/dL Normal A 2127330165) BILIRUBIN (test code = Negative Negative 7900904206) NITRITE (test code = Negative Negative 6411514351) LEUK ROZINA (test code = 25/uL Negative A 9340347125) RBC/HPF (test code = See_Comment [Autom ated message] 2739677157) The system [employer] generated this result transmit ngozi reference range : 0 - 3 HPF. The refe rence range was not u sed to interpret th is result as normal/abnormal . WBC/HPF (test code = See_Comment [Autom ated message] 2707702584) The system [employer] generated this result transmit ngozi reference range : 0 - 5 HPF. The refe rence range was not u sed to interpret th is result as normal/abnormal . BACTERIA (test code = Few Negative A 5908729215) MUCOUS (test code = Slight Negative LPF A 1060975391) SQ EPITH (test code = HPF 4466675043) Lab Interpretation (test Abnormal code = 57829-7) [facility] Szgozbncvaa9330-50-87 16:42:24 Test Item Value Reference Range Interpretation [...] = 10-24-2020 N Expiration Dt) Thyroid Stimulating Oukkczm9376-93-43 08:35:16 Test Item Value Reference Range Interpretation Comments TSH (test code = TSH) 1.170 mIU/mL 0.270-4.200 Lipid Tbqyh0111-72-70 08:21:19 Test Item Value Reference Range Interpretation [...] calculation is LDL/HDL Ratio=L DL Calc/HDL Chol RLFYNWXENELD5860-70-83 08:24:008.6Memorial LwtrjqgYACUMIQYYCTF9949-63-19 08:24:63596Cqcyahmy XpzvvjzELTRAUEGHUIW6706-47-68 08:24:0027[facility] Yonis IDTAHKWGSYLT4772-67-12 08:24:43552Tyyosbhu FwkzkbcUCXTSTZYKZDH1422-48-95 08:24:003.6Memorial LruupfmHWULZEKQHUVY4148-89-41 08:24:000.70[facility] YWHRLAONYIFY8520-78-62 08:24:008.4Memorial YdawjekUJRRYCLBNZOP5948-59-66 08:24:26323Dcidokjm ZedwmzpNACQIPEAWIUH4235-58-76 08:24:0086[facility] Y[facility] KOPEDZIHQHXV1449-95-87 08:24:006[facility]orial CdgwzdxTCIHSTRLIB4711-62-11 08:24:00 11.6Memorial KzijhacLIURRPYTAW5963-62-99 08:24:003.78[facility] HermannHEMATOLOGY 2019-01-26 08:24:0013.3[facility]orial FzjwgxfLNFMNJDRVZ5957-81-13 08:24:0034.0[facility]orial ScbswvlRCOGQEJDHX7039-52-55 08:24:006.3[facility]orial OndotdxEYEOFQBBJZ9704-77-54 08:24:00 Test Item Value Reference Range Interpretation Comments MCH (test code = MCH) 30.7 pg 27.0-31.0 Memorial TdsvlmqMWLOVCQZTN8234-24-23 08:24:0090.3[facility] HermannHEMATOLOGY 2019-01-26 08:24:0034.2[facility]orial GlxsqtsRYSNJGFWSU0031-71-50 08:24:66106Adwyypkg HenxefoGUFHSNNJMC9565-86-46 08:24:007.5Memorial XzejchlDQDALAFBFLTR4956-50-56 08:24:008.6[facility]orial GheulohQISYVPCKAVRO5731-23-65 08:24:44282Fdtzfsjg [place] ZSFUQMLVORJO3317-52-03 08:24:0027Memorial NljddvxBJJXLICZVUNI0139-57-63 08:24:00 139[facility]orial WvclifuAGUWREXHQHNT0315-19-95 08:24:003.6[facility] DRWZDNZRKYWT5759-04-27 08:24:000.70Memorial SrwznnnCBVYEZAPVNRC9674-94-86 08:24:008.4[facility]orial HmdgtjyLSGTUJKZTMMP9279-04-02 08:24:34234Yezsowyj Yonis HBEATQMVMGWF8851-38-07 08:24:0086Memorial ZeazlqjLEVKUHEZVWAA2764-65-09 08:24:00 6Memorial MqiicpnOWIBOCJHSZ8715-97-62 08:24:0011.6[facility] HermannHEMATOLOGY 2019-01-26 08:24:003.78[facility]orial KiqyzhfPIFTBULOGU4082-73-32 08:24:0013.3[facility]orial UtcxgmpVRJMGEXTOG7084-35-22 08:24:0034.0[facility]orial GurwboxLCZQYITJMY9534-41-19 08:24:006.3[facility]orial KfsbntfQXHSTQTOVO1189-78-08 08:24:00 Test Item Value Reference Range Interpretation Comments MCH (test code = MCH) 30.7 pg 27.0-31.0 Memorial RkioqsqDLNYOVAMUZ5856-02-20 08:24:0090.3[facility] HermannHEMATOLOGY 2019-01-26 08:24:0034.2[facility]orial DlqslhdKXYWADOLGV3932-33-60 08:24:83604Inknjbit KdtpzlsOFGVSTGATD1776-54-33 08:24:007.5[facility] HermannCHEM MEVGX5748-28-94 09:14:67192Mkpwfbei HermannCHEM DJZLZ3452-26-77 09:14:008.5[facility] HermannCHEM PJUYQ2947-10-49 09:14:0013.3[facility] HermannCHEM ZIVFL6749-60-51 09:14:0024 [facility] HermannCHEM QIXWW3633-04-95 09:14:03195Pxkwvobe HermannCHEM PANEL 2019-01-25 09:14:0081[facility] HermannCHEM DHEDQ5607-64-43 09:14:002[facility] HermannCHEM DVFAD8678-91-86 09:14:003.3[facility] HermannCHEM LWNKK5580-84-56 09:14:000.60[facility] HermannCHEM JSTPY0913-08-97 09:14:74267Smzfbekn HermannCHEM ZGDUL8546-47-21 09:14:24651Yqkmvstw HermannCHEM ATBSK7914-79-95 09:14:008.5 [facility] HermannCHEM MMDXI0523-84-82 09:14:0013.3[facility] HermannCHEM PANEL 2019-01-25 09:14:0024Mem[facility] HermannCHEM FTWFZ3739-50-06 09:14:96640Osbkrzsz HermannCHEM XDSDP7883-46-91 09:14:0081[facility] HermannCHEM TMOJZ9479-38-06 09:14:002[facility] HermannCHEM OHZCC6652-08-55 09:14:003.3[facility] HermannCHEM EUZYJ4977-37-31 09:14:000.60[facility] HermannCHEM DKMLZ4029-35-58 09:14:75002 [facility] HermannMOLECULAR XKMETREBEW2259-70-62 16:22:00Negative (01/23/19 11:22 AM)[facility] HermannMOLECULAR VHQZUXOJSR7528-35-36 16:22:00Negative (01/23/19 11:22 AM)[facility] HermannCHEM OAZJG9104-17-31 15:42:002.76[facility] HermannCHEM PANEL 2019-01-23 15:42:002.76[facility] HermannCHEM OQSLG5969-37-62 12:32:000.9[facility] HermannCHEM NQDWX5549-44-83 12:32:000.9[facility] HermannCHEM MOKUK8570-59-04 10:50:002.0[facility] HermannCHEM OFOGM9517-37-70 10:50:61474Laesdiam HermannCHEM HZSTF3837-12-49 10:50:0023[facility] HermannCHEM GUZUL5621-07-02 10:50:57248 [facility] HermannCHEM HBLLU0844-07-01 10:50:003.1[facility] HermannCHEM PANEL 2019-01-23 10:50:38151Tprqmdqg HermannCHEM FYVKL3176-64-54 10:50:005[facility] HermannCHEM FBVFM5320-76-07 10:50:000.50[facility] HermannCHEM HMMMG9991-92-04 10:50:007.8[facility] HermannCHEM ZDPTZ3268-37-54 10:50:0083[facility] HermannCHEM PWUEB3129-60-98 10:50:0010.1Memorial HcebxtaLDCTJIYCXI3681-67-23 10:50:000.2 Memorial SmvrhmbBYJDWKHWYZ9424-91-05 10:50:000.8[facility] HermannHEMATOLOGY 2019-01-23 10:50:005.5Memorial ZenoewwWUMHPRNHAY1526-22-49 10:50:002.2[facility]orial AekchzxMYUYDNTYVU3660-65-09 10:50:000.1Memorial QmwspwrANBWIFQTAO0348-38-81 10:50:0063.6Memorial QqfoatcMDMGBTOHTQ1650-56-16 10:50:008.9[facility] Yonis MJNQYWLZFB2132-23-60 10:50:002.3Memorial ZqcolhgQRBSEZOBNA9948-83-48 10:50:00 Normal (01/23/19 5:50 AM)[facility]orial HuzkusiKFDTPEXLMV4116-26-49 10:50:00Normal (01/23/19 5:50 AM)[facility]orial CthmyhwNJXALJISSL4211-67-73 10:50:0025.1[facility] UiykhwvHEYLVBIMKS8932-09-43 10:50:0013.1[facility]orial VrfktxpDWBICBDEXI5357-76-49 10:50:96893Kqvxtlzs WvipzzxMXBTZOXXGP8204-69-96 10:50:007.7[facility] Y[facility]is VAJKQVOTWG3087-10-92 10:50:008.6Memorial QvvpgjfECJYGSMTES6536-68-81 10:50:00 10.0Memorial WxmirpnUYEPCPKLUC9214-33-74 10:50:0034.6[facility] HermannHEMATOLOGY 2019-01-23 10:50:0028.7[facility] WtfmvikHFFUSRHFYR7402-20-48 10:50:0087.8[facility] YnclwboOLCINPCMJR6093-11-58 10:50:00 Test Item Value Reference Range Interpretation Comments MCH (test code = MCH) 30.4 pg 27.0-31.0 Memorial MemptigATZYSGZQAC4031-02-07 10:50:003.27[facility] HermannCHEM PANEL 2019-01-23 10:50:002.0[facility] HermannCHEM JYFJP3323-29-12 10:50:00145Nqmdvyrg HermannCHEM EYTFV3256-65-51 10:50:0023[facility] HermannCHEM GNBPG9115-66-34 10:50:54372Shrfyoeh HermannCHEM UOSDY1844-51-98 10:50:003.1[facility] HermannCHEM KIGBV6238-29-69 10:50:59394Jwgymcrn HermannCHEM SJZHA0088-85-49 10:50:005 [facility] HermannCHEM JXOIK2469-61-23 10:50:000.50[facility] HermannCHEM PANEL 2019-01-23 10:50:007.8[facility] HermannCHEM UNOHZ3693-25-26 10:50:0083[facility] HermannCHEM LKPOT1340-55-33 10:50:0010.1[facility]orial RofqkdpOTKIOUPDTT4390-57-54 10:50:000.2[facility] OhjnlskNARYALBTWH4381-50-87 10:50:000.8[facility] Yonis HPRURVDEKN7085-46-06 10:50:005.5[facility]orial NxpojhwPJQVBWTXNW5810-80-37 10:50:002.2 Memorial MxowbsmYZEWYSNCKC7368-16-93 10:50:000.1[facility] HermannHEMATOLOGY 2019-01-23 10:50:0063.6[facility] JuejyxkWVOOETSPBD8005-24-58 10:50:008.9[facility] TmwybyxBKPHKTNZZM4689-37-44 10:50:002.3[facility] UejkhviGZXTNYEEUE2324-13-57 10:50:00Normal (01/23/19 5:50 AM)[facility] IseqxtaPSGACWOTCZ3700-29-92 10:50:00 Normal (01/23/19 5:50 AM)[facility] SzhwctsHNROUBOLJM4343-35-94 10:50:0025.1[facility] PsqauytHSCVSVFYAW6674-92-91 10:50:0013.1[facility] EbllcuhKVOVARJPVX4074-63-70 10:50:73088Scmvqjmt TyehrwqOSLAEXJDSZ4635-35-87 10:50:007.7[facility] [place] CNKZKLJSON1823-17-25 10:50:008.6[facility] SsjspfeNTGXWPQTCS5014-27-54 10:50:00 10.0[facility] ZoxndadKWYTSVYASP5836-39-15 10:50:0034.6[facility] HermannHEMATOLOGY 2019-01-23 10:50:0028.7[facility] HzvoesoRESWNPWBVM6774-69-05 10:50:0087.8[facility] PlybtvbMADVJMWNZZ5977-86-40 10:50:00 Test Item Value Reference Range Interpretation Comments MCH (test code = MCH) 30.4 pg 27.0-31.0 Memorial JxdkyymDXLCLQUSCM2932-43-62 10:50:003.27[facility] HermannCHEM PANEL 2019-01-22 11:32:002.4[facility] HermannCHEM SXMUD7233-45-84 11:32:002.4[facility] HermannCHEM IFUKR6018-86-29 09:04:003.0[facility] HermannCHEM XJDPI4690-96-15 09:04:003.0[facility] HermannURINE AND WRMJV4206-78-51 07:14:00<1[facility] HermannURINE AND PZJDL9211-98-95 07:14:0025[facility] HermannURINE AND STOOL 2019-01-22 07:14:002[facility] HermannURINE AND AXNCE8517-20-22 07:14:00Light Yellow *NA*(01/22/19 2:14 AM)[facility] [id number] 07:14:00 Clear (01/22/19 2:14 AM)[facility] [id number] 07:14:00 Test Item Value Reference Range Interpretation Comments UA Spec Grav (test code = UA Spec 1.014 1 Grav) [facility] [id number] 07:14:00 Test Item Value Reference Range Interpretation Comments UA pH (test code = UA pH) 6.0 1 5.0-8.0 [facility] [id number] 07:14:00Negative (01/22/19 2:14 AM) [facility] [id number] 07:14:00Negative *NA*(01/22/19 2:14 AM) [facility] [id number] 07:14:00Negative *NA*(01/22/19 2:14 AM) [facility] [id number] 07:14:00Negative *NA*(01/22/19 2:14 AM) [facility] [id number] 07:14:00Negative (01/22/19 2:14 AM) [facility] [id number] 07:14:00Negative (01/22/19 2:14 AM) [facility] [id number] 07:14:00Negative (01/22/19 2:14 AM) [facility] [id number] 07:14:00<1[facility] [id number] 07:14:0025[facility] [id number] 07:14:002 [facility] [id number] 07:14:00Light Yellow *NA*(01/22/19 2:14 AM)[facility] [id number] 07:14:00Clear (01/22/19 2:14 AM) [facility] [id number] 07:14:00 Test Item Value Reference Range Interpretation Comments UA Spec Grav (test code = UA Spec 1.014 1 Grav) [facility] [id number] 07:14:00 Test Item Value Reference Range Interpretation Comments UA pH (test code = UA pH) 6.0 1 5.0-8.0 [facility] [id number] 07:14:00Negative (01/22/19 2:14 AM) [facility] [id number] 07:14:00Negative *NA*(01/22/19 2:14 AM) [facility] [id number] 07:14:00Negative *NA*(01/22/19 2:14 AM) [facility] [id number] 07:14:00Negative *NA*(01/22/19 2:14 AM) [facility]QKAH7553[facility]35[facility]85 07:14:00Negative (01/22/19 2:14 AM) [facility] NYVAK6016-14-67 07:14:00Negative (01/22/19 2:14 AM) [facility] GHQID4219-57-53 07:14:00Negative (01/22/19 2:14 AM) [facility] [place]ALMXO6668-95-02 05:16:000.90[facility] CqlwhfgTYIMG3616-20-09 05:16:000.90[facility] AJFAOQQ8849-78-84 05:01:00Negative (01/22/19 12:01 AM)[facility]ARD[facility] ACJICAI0321-83-07 05:01:00<0.02 [facility] VMYPAJH0968-16-33 05:01:0049[facility]annCHEM PANEL 2019-01-22 05:01:000.6[facility]annCHEM HGOYU8126-73-66 05:01:06898Dnmwxmdv HermannCHEM DQBWZ7988-54-54 05:01:004.0[facility]annCHE[facility] XFLTB3742-63-74 05:01:0017[facility]annCHEM FEWUC8348-77-19 05:01:0025[facility]annCHE[facility] LKHNV4475-10-59 05:01:008.1[facility]annCHEM AXUEG1364-49-10 05:01:00 Test Item Value Reference Range Interpretation Comments B/C Ratio (test code = B/C Ratio) 20 1 6-25 [facility] OLWKH2535-78-84 05:01:00 Test Item Value Reference Range Interpretation Comments A/G Ratio (test code = A/G Ratio) 1.0 1 0.7-1.6 [facility] SGVFP7470-54-39 05:01:004.1[facility]annCHEM PANEL 2019-01-22 05:01:006.90[facility] FcwwallKUWULCJABQPJH8704-32-65 05:01:00Negative *NA*(01/22/19 12:01 AM)[facility] VpaxguoEEUNLHFOOK2139-61-81 05:01:000.1[facility] HlsywlpXCCOWJGOOL3879-57-29 05:01:000.7[facility] PbfgwgzNSZXPTEIRE9343-98-66 05:01:000.0[facility] KazkcrwGEHYLLVGQF3456-07-84 05:01:000.0[facility] RDPALOUPPY8310-02-19 05:01:000.9[facility] AwapgneCJODIPKNCI7528-45-49 05:01:008.6 [facility] IhisjrtKPAQJDTCHY3693-82-96 05:01:000.6[facility]annHEMATOLOGY 2019-01-22 05:01:0086.5[facility] CghnukzAOQQPKEYXR5399-95-63 05:01:005.7[facility] KseotcfHIIBTZOJXF1473-78-37 05:01:006.9[facility] PmowfbsZAKRIJQWTE0304-50-87 05:01:009.9[facility] VjqarhhIKHVNRNLKO1625-50-80 05:01:0032.8[facility] AOSOEUBJMA3098-36-56 05:01:0013.6[facility] GpeygqqTBCRSRMZRP7174-77-38 05:01:00 443[facility] QeeoftbPBDDLFZKQI2738-99-02 05:01:007.3[facility]annHEMATOLOGY 2019-01-22 05:01:0014.0[facility] NcrmbggGJVYHYOZXG9718-53-42 05:01:004.85[facility] OgjedckZZBGDUPTSH0372-11-49 05:01:0042.7[facility] OiuzbgbKABOXKAALH0406-91-07 05:01:00 Test Item Value Reference Range Interpretation Comments MCH (test code = MCH) 29.0 pg 27.0-31.0 [facility] LxuwezcFCUEOZLOYI4458-76-41 05:01:0088.2[facility]annHEMATOLOGY 2019-01-22 05:01:00 Test Item Value Reference Range Interpretation Comments INR (test code = INR) 0.96 1 0.85-1.17 [facility] SlyvegrEGVAWOEKLF6081-71-10 05:01:00 Test Item Value Reference Range Interpretation Comments PT (test code = PT) 12.6 s 12.0-14.7 [facility]CWODTLCJHQ8812-43-39 05:01:00 Test Item Value Reference Range Interpretation Comments PTT (test code = PTT) 25.9 s 22.9-35.8 [facility] RSDSCQU1855-12-93 05:01:00Negative (01/22/19 12:01 AM) [facility]CARD[facility]AC QDGQXCH6493-66-70 05:01:00<0.02[facility] CARDIAC AAAHYND1529-36-19 05:01:0049[facility]annCHEM XEISW6874-78-84 05:01:000.6[facility]annCHEM SWXFC1411-24-66 05:01:08504Aaqfcrqp HermannCHEM JCMTC1164-13-82 05:01:004.0[facility]annCHEM GYSKL5511-90-46 05:01:0017 [facility]annCHE[facility] FRIVE1869-83-65 05:01:0025[facility]annCHEM PANEL 2019-01-22 05:01:008.1[facility]annCHEM UBKSZ0325-71-43 05:01:00 Test Item Value Reference Range Interpretation Comments B/C Ratio (test code = B/C Ratio) 20 1 6-25 [facility]annCHE[facility] SSZJC8342-80-70 05:01:00 Test Item Value Reference Range Interpretation Comments A/G Ratio (test code = A/G Ratio) 1.0 1 0.7-1.6 [facility]CHE[facility] ABECJ5088-69-61 05:01:004.1[facility]annCHEM PANEL 2019-01-22 05:01:006.90[facility] FyusrsoRIVGOHTDITGQY5575-53-60 05:01:00Negative *NA*(01/22/19 12:01 AM)[facility] VgeyowgEAKNOKRYZJ7653-46-04 05:01:000.1[facility] PizwnltYFHWXWXSHA0004-40-15 05:01:000.7[facility] KlonpdsLOQTMWQQMD7296-30-77 05:01:000.0[facility] CbyulkeQJPOGUYYCO0500-60-14 05:01:000.0[facility] KHKHENVQPI7333-44-50 05:01:000.9[facility] FwasrsoJNQBBPTOTB4464-83-37 05:01:008.6 [facility] OyrfyedYUAUGBKTUJ0336-55-15 05:01:000.6[facility]annHEMATOLOGY 2019-01-22 05:01:0086.5[facility] FyewfopEUQAOTPXOQ7039-36-91 05:01:005.7[facility] KgmoewcFMFNJYPJWT1410-37-94 05:01:006.9[facility] JvnetljDKHVHDZPEB8682-47-53 05:01:009.9[facility] LtqgdnjCUMTLYESQD1400-90-02 05:01:0032.8[facility] NAKEEWQMYQ0999-41-99 05:01:0013.6[facility] JzaezcpDFCLLDQTOQ3848-97-39 05:01:00 443[facility] VejfompTAMDVEHXXC7022-02-91 05:01:007.3[facility]annHEMATOLOGY 2019-01-22 05:01:0014.0[facility] XrbndzhGSOLUTDGIS3830-62-78 05:01:004.85[facility] BhaodvfMZPPXJFOSY4666-64-65 05:01:0042.7[facility] LtwdwxlUMAZICVJYC7992-48-51 05:01:00 Test Item Value Reference Range Interpretation Comments MCH (test code = MCH) 29.0 pg 27.0-31.0 [facility]Gqt[facility]dyZTUDANBPFL0970-46-59 05:01:0088.2[facility]annHEMATOLOGY 2019-01-22 05:01:00 Test Item Value Reference Range Interpretation Comments INR (test code = INR) 0.96 1 0.85-1.17 [facility]MvoochwCPFXZJJIAD4611-23-45 05:01:00 Test Item Value Reference Range Interpretation Comments PT (test code = PT) 12.6 s 12.0-14.7 [facility]FwphpxzQQEESFNQCR7220-78-78 05:01:00 Test Item Value Reference Range Interpretation Comments PTT (test code = PTT) 25.9 s 22.9-35.8 [facility]LzyzpwwJLV0L2880-27-99 14:36:00 Test Item Value Reference Range Interpretation [...] 0.00-0.01 N code = ETOHU) Comprehensive Metabolic Kepoy7929-79-83 14:36:00 Test Item Value Reference Range Interpretation [...] the [employer],http ://nkd ep.nih.gov Urinalysis Gtwafcca3721-16-76 14:32:00 Test Item Value Reference Range Interpretation Comments Color (test code = COLOR) Yellow Yellow,Straw,Pl N yellow Clarity (test code = Clear Clear N CLAR) Specific [place]oll[place] (test 1.024 1.001-1.035 N code = SPGR) [...] code = Few /HPF BACT) CBC with Keguxvothcos6594-92-28 14:21:00 Test Item Value Reference Range Interpretation [...] code = ALYMPH) 3.0 K/cumm 0.5-4.6 N [place] Abs (test code = AMONO) 0.5 K/cumm 0.0-1.2 N Eos Abs (test code = AEOS) 0.19 K/cumm 0.00-0.74 N Baso Abs (test code = ABASO) 0.1 K/cumm 0.00-0.21 N
== END 2021-09-04 19:54 | disposition home or self-care (01) ==
LOC: ER 16:01
DX: R07.9 Chest pain, unspecified (principal); T43.625A Adverse effect of amphetamines, initial encounter; Z88.8 Allergy status to other drugs, medicaments and biological substances; F31.9 Bipolar disorder, unspecified
CPT/HCPCS: 96361; 93005; 85025; 80048; 36415; 83735; 85610; 80076; 84484; 71045; 96374; 99285; J7030

== ENCOUNTER 2021-09-05 15:43 | Emergency (ER) | payer OTHER ==
--- NOTE | 2021-09-05 20:12 | EDPHYS ---
Physician Documentation [facility] Name: Tiffany Quinn Age: 51 yrs Sex: Female : 1970 Arrival Date: 09/05/2021 Time: 15:47 Bed 14 Private MD: ED Physician Goran Bledsoe HPI: 09/05 18:53 This 51 yrs old Female presents to ER via Ambulatory with complaints of kdr Shortness Of Breath. 18:53 The patient has shortness of breath at rest. Onset: The symptoms/episode began/occurred kdr at an unknown time. Patient has been presenting to the ED on multiple occasions over the last few days with the same complaint. There is no new aspect of the complaint or symptoms today. Duration: The symptoms are intermittent, with no pattern. The patient's shortness of breath is aggravated by. Associated signs and symptoms: The patient has no apparent associated signs or symptoms. Severity of symptoms: At their worst the symptoms were mild moderate just prior to arrival, in the emergency department the symptoms have resolved. The patient has not experienced similar symptoms in the past. The patient has been recently seen by a physician: The patient has been recently seen at the [facility] Emergency Department, yesterday, Multiple visits for the same complaint. Patient admits to interacting with methamphetamines on a routine basis. Historical: - Allergies: 15:49 Haldol; ss 15:49 Pepcid; ss 15:49 Toradol; ss - Home Meds: 20:39 lithium carbonate 300 mg Oral tab 1 cap 3 times per day [Active]; bs2 - PMHx: 15:49 Anxiety; Bipolar disorder; ss - PSHx: 15:49 breast augmentation; Cholecystectomy; hernia repair; ss - Immunization history:: Adult Immunizations Client reports receiving the 2nd dose of the Covid vaccine. - Social history:: Smoking status: Patient uses street drugs, Methamphetamine (Meth). ROS: 18:53 Constitutional: Negative for fever, chills, and weight loss, Eyes: Negative for injury, kdr pain, redness, and discharge, ENT: Negative for injury, pain, and discharge, Neck: Negative for injury, pain, and swelling, Respiratory: Negative for shortness of breath, cough, wheezing, and pleuritic chest pain, Abdomen/GI: Negative for abdominal pain, nausea, vomiting, diarrhea, and constipation, Back: Negative for injury and pain, : Negative for injury, bleeding, discharge, and swelling, MS/Extremity: Negative for injury and deformity, Skin: Negative for injury, rash, and discoloration, Neuro: Negative for headache, weakness, numbness, tingling, and seizure activity. Allergy/Immunology: Negative for hives, rash, and allergies, Endocrine: Negative for neck swelling, polydipsia, polyuria, polyphagia, and marked weight changes, Hematologic/Lymphatic: Negative for swollen nodes, abnormal bleeding, and unusual bruising. 18:53 Cardiovascular: Positive for chest pain, palpitations. 18:53 Respiratory: Positive for shortness of breath, at rest. The symptoms reported are subjective as she does not have any objective evidence of dyspnea. Exam: 18:53 Constitutional: This is a well developed, well nourished patient who is awake, alert, kdr and in no acute distress. Head/Face: Normocephalic, atraumatic. Eyes: Pupils equal round and reactive to light, extra-ocular motions intact. Lids and lashes normal. Conjunctiva and sclera are non-icteric and not injected. Cornea within normal limits. Periorbital areas with no swelling, redness, or edema. Neck: Trachea midline, no thyromegaly or masses palpated, and no cervical lymphadenopathy. Supple, full range of motion without nuchal rigidity, or vertebral point tenderness. No Meningismus. Chest/axilla: Normal chest wall appearance and motion. Nontender with no deformity. No lesions are appreciated. Cardiovascular: Regular rate and rhythm with a normal S1 and S2. No gallops, murmurs, or rubs. Normal PMI, no JVD. No pulse deficits. Respiratory: Lungs have equal breath sounds bilaterally, clear to auscultation and percussion. No rales, rhonchi or wheezes noted. No increased work of breathing, no retractions or nasal flaring. Abdomen/GI: Soft, non-tender, with normal bowel sounds. No distension or tympany. No guarding or rebound. No evidence of tenderness throughout. Back: No spinal tenderness. No costovertebral tenderness. Full range of motion. Skin: Warm, dry with normal turgor. Normal color with no rashes, no lesions, and no evidence of cellulitis. MS/ Extremity: Pulses equal, no cyanosis. Neurovascular intact. Full, normal range of motion. Neuro: Awake and alert, GCS 15, oriented to person, place, time, and situation. Cranial nerves II-XII grossly intact. Motor strength 5/5 in all extremities. Sensory grossly intact. Cerebellar exam normal. Normal gait. 18:53 Psych: Behavior/mood is pleasant, cooperative, anxious, inappropriate for age, Affect is animated, Oriented to person, place, time, Patient has no thoughts/intents to harm self or others. Judgement / Insight is impaired. Patient has pressured speech and nonsensical thought patterns. Delusions/hallucinations are not present. 18:53 ECG was reviewed by the Attending Physician. kdr Vital Signs: 16:08 BP 151 / 98; Pulse 120; Resp 18 S; Temp 98.3; Pulse Ox 99% on R/A; Weight 84.82 kg; iw Height 5 ft. 1 in. (154.94 cm); 18:17 BP 148 / 102; Pulse 111; Resp 17; Pulse Ox 98% on R/A; jt3 18:56 BP 134 / 71; Pulse 106; Resp 17; Pulse Ox 97% on R/A; jt3 20:40 BP 130 / 70; Pulse 105; Resp 19; Temp 98.7; Pulse Ox 97% ; Pain 0/10; bs2 16:08 Body Mass Index 35.33 (84.82 kg, 154.94 cm) iw MDM: 18:53 Data reviewed: vital signs, nurses notes, lab test result(s), EKG. Counseling: I had a kdr detailed discussion with the patient and/or guardian regarding: the historical points, exam findings, and any diagnostic results supporting the discharge/admit diagnosis, lab results, the need for outpatient follow up. 20:05 Patient medically screened. pkl 20:06 ED course: Discussed lab and EKG with patient. Advised to follow up with her PCP in 2 pkl to 3 days. Patient understood instructions. 09/05 18:20 Order name: Troponin (emerg Dept Use Only); Complete Time: 20:06 kdr 09/05 18:20 Order name: EKG - Nurse/Tech; Complete Time: 18:50 kdr EC:53 Rate is 111 beats/min. Rhythm is regular, Sinus tachycardia with No ectopy. QRS [place] is kdr Normal. IN interval is normal. QRS interval is normal. QT interval is normal. Clinical impression: Sinus tachycardia. Administered Medications: No medications were administered Disposition Summary: 09/05/21 20:11 Discharge Ordered Location: Home pkl Problem: new pkl Symptoms: are unchanged pkl Condition: Stable pkl Diagnosis - Anxiety disorder pkl Followup: pkl - With: Private Physician - When: 2 - 3 days - Reason: Re-evaluation by your physician Discharge Instructions: - Discharge Summary Sheet pkl Forms: - Medication Reconciliation Form pkl - Thank You Letter pkl - Antibiotic Education pkl - Prescription Opioid Use pkl Prescriptions: - Ativan 0.5 mg Oral Tablet - take 1 tablet by ORAL route 2 times per day As needed; 10 tablet; Refills: 0, pkl Product Selection Permitted Signatures: Dispatcher [employer] EDGoran Hull MD MD pkDemarcus Courtney MD MD kdr Williams, Irene, RN Preethi Francis, RN Carolee Dominguez, RN RN bs2
--- NOTE | 2021-09-05 20:12 | ER ---
Nurse's Notes [facility] Name: Tiffany Quinn Age: 51 yrs Sex: Female : 1970 Arrival Date: 09/05/2021 Time: 15:47 Bed 14 Private MD: Diagnosis: Anxiety disorder Presentation: 09/05 16:08 Chief complaint: Patient states: woke up this morning and felt like she was going to be iw sick and her circulation was bad, feels SOB. Coronavirus screen: At this time, the client does not indicate any symptoms associated with coronavirus-19. Ebola Screen: Patient negative for fever greater than or equal to 101.5 degrees Fahrenheit, and additional compatible Ebola Virus Disease symptoms Patient denies exposure to infectious person. Patient denies travel to an Ebola-affected area in the 21 days before illness onset. No symptoms or risks identified at this time. Initial Sepsis Screen: Does the patient meet any 2 criteria? No. Patient's initial sepsis screen is negative. Does the patient have a suspected source of infection? No. Patient's initial sepsis screen is negative. Risk Assessment: Do you want to hurt yourself or someone else? Patient reports no desire to harm self or others. Onset of symptoms was September 05, 2021. 16:08 Method Of Arrival: Ambulatory iw 16:08 Acuity: MANUEL 3 iw Triage Assessment: 20:38 General: Appears in no apparent distress. obese, unkempt, Behavior is anxious. bs2 Respiratory: Reports shortness of breath on exertion Respiratory: Onset: The symptoms/episode began/occurred at an unknown time. Historical: - Allergies: 15:49 Haldol; ss 15:49 Pepcid; ss 15:49 Toradol; ss - Home Meds: 20:39 lithium carbonate 300 mg Oral tab 1 cap 3 times per day [Active]; bs2 - PMHx: 15:49 Anxiety; Bipolar disorder; ss - PSHx: 15:49 breast augmentation; Cholecystectomy; hernia repair; ss - Immunization history:: Adult Immunizations Client reports receiving the 2nd dose of the Covid vaccine. - Social history:: Smoking status: Patient uses street drugs, Methamphetamine (Meth). Screenin:17 Abuse screen: Denies threats or abuse. Denies injuries from another. Nutritional jt3 screening: No deficits noted. Tuberculosis screening: No symptoms or risk factors identified. Fall Risk None identified. Assessment: 18:17 General: Appears unkempt, Behavior is cooperative, anxious, restless. Pain: Denies jt3 pain. Cardiovascular: Rhythm is sinus tachycardia. 18:50 Reassessment: Pt. endorses meth 3-4 hours ago. Pt. states she feels chest pressure. MD portillot3 Dr. Jean notified. Respiratory: No deficits noted. 20:38 Respiratory: Airway is patent Respiratory effort is even, Breath sounds are clear. bs2 Vital Signs: 16:08 BP 151 / 98; Pulse 120; Resp 18 S; Temp 98.3; Pulse Ox 99% on R/A; Weight 84.82 kg; iw Height 5 ft. 1 in. (154.94 cm); 18:17 BP 148 / 102; Pulse 111; Resp 17; Pulse Ox 98% on R/A; jt3 18:56 BP 134 / 71; Pulse 106; Resp 17; Pulse Ox 97% on R/A; jt3 20:40 BP 130 / 70; Pulse 105; Resp 19; Temp 98.7; Pulse Ox 97% ; Pain 0/10; bs2 16:08 Body Mass Index 35.33 (84.82 kg, 154.94 cm) iw ED Course: 15:47 Patient arrived in ED. as 16:09 Triage completed. iw 16:10 Arm band placed on. iw 17:59 Demarcus Mancilla MD is Attending Physician. kdr 18:17 Lemuel Capone, RN is Primary Nurse. jt3 18:17 Patient has correct armband on for positive identification. Bed in low position. Call jt3 light in reach. Side rails up X2. 18:17 No provider procedures requiring assistance completed. jt3 19:52 Primary Nurse role handed off by Lemuel Capone, JIGNA mw2 19:59 Carolee Andre, RN is Primary Nurse. bs2 20:05 Attending Physician role handed off by Demarcus Mancilla MD pkl 20:05 Goran Bledsoe MD is Attending Physician. pkl 20:39 Patient did not have IV access during this emergency room visit. bs2 Administered Medications: No medications were administered Outcome: 20:11 Discharge ordered by . pkl 20:39 Discharged to home ambulatory. bs2 20:39 Condition: stable 20:39 Discharge instructions given to patient, Instructed on discharge instructions, follow up and referral plans. medication usage, Demonstrated understanding of instructions, follow-up care, medications, Prescriptions given X 1. 20:40 Patient left the ED. bs2 Signatures: Goran Bledsoe MD MD pkl Rittger, Kevin, MD MD kdr Martinez, Amelia as Chante Warner, RN JIGNA iw Preethi Melendez RN RN Mitch Quesada 2 Carolee Andre RN RN bs2 Lemuel Capone RN RN jt3
[2021-09-05 21:02] VITALS: O2SAT 97
[2021-09-05 21:04] VITALS: BP 130/70; TEMP 98.7
--- OUTSIDE RECORDS SUMMARY | 2021-09-06 23:03 | XMS REPORT | Continuity of Care Document ---
:1970 Author Organization [facility] t Address [address] [place] [address] Care Team Providers Name Role Phone UNKNOWN [...] oria 3 01:52:00 l LOW PB 00:00: [place] 00 Active 01/21/2019 [facility] INFECTIOUS Diagnosis Active 2019-02-06 Memoria GASTROENTE 330 08:58:00 l RITIS AND 00:00: [place] COLITIS INFECTIOUS 00 GASTROENTE RITIS AND COLITIS Active 01/21/2019 [facility] Irregular Irregular Disease Active Uni vers menstrual menstrual 8-15 ity of cycle cycle 00:00: [address] Skin Skin Disease Active Univers lesion lesion 8-15 ity of 00:00: [address] Psychiatri Psychiatri Disease Active U nivers c disorder c disorder 8-15 it y of 00:00: [address] Well woman Well woman Disease Active U kavita exam with exam with 8-15 ity of routine routine 00:00: [place] gynecologi gynecologi 00 Me dical nicky exam nicky exam Branch INFECTIOUS Diagnosis Active 2019-02-06 Memoria GASTROENTE 08:58:00 winifred WALTON AND [place] COLITIS, INFECTIOUS GASTROENTE RITIS AND COLITIS, Active [facility] Allergies, Adverse Reactions, Alerts Allergy Allergy Status Severity Reaction(s) Onset Inactive Treating Comm ents Source Name Type Date Date Clinician NO KNOWN Drug Active Univers ALLERGIE Class ity of S [facility] Phenerga Phenerga Active Memori a n n l [place] Social History Social Habit Start Date Stop Date Quantity Comments Source [facility] of C[facility] Tobacco Comment 2-3 cigs a day [facility] Exposure to Not sure [facility] SARS-CoV-2 [facility] (event) [place] Tobacco use and 2016-06-08 2016-06-08 Never used [facility] y of exposure 00:00:00 00:00:00 [facility] Alcohol intake 2016-06-08 2016-06-08 Current University 00:00:00 00:00:00 non-drinker of [facility] alcohol (finding) Branch Smoking Status Start Date Stop Date Source Social History 2019-01-22 05:00:12 [facility] Current some day smoker 2016-06-08 00:00:00 [facility] Medications Ordered Filled Start Stop Current Ordering Indication Dosage Frequency Signature Comments Components Source Medication Medication Date Date Medication? Clinician (SIG) Name Name ondansetron 2019-10 2020- No 4mg 4 mg, [facility] ers (ZOFRAN-ODT 2-05 05- Oral, ity of ) 15:15: 14:16 ONCE, 1 [place] disintegrat 00 :00 dose, Mon Med ical ing tablet 09/30/20 at [facility] 4 mg 0915, Routine ondansetron 2019-10 2020- No 4mg 4 mg, [facility] ers (ZOFRAN-ODT 2-05 05- Oral, ity of ) 14:30: 13:32 ONCE, 1 [place] disintegrat 00 :00 dose, Mon Med ical ing tablet 09/30/20 at [facility] 4 mg 0830, Routine ondansetron 2019-10 Yes [id number] 4mg Take 1 Univers 4 mg 2-07 tablet by ity of disintegrat 00:00: mouth [place] ing tablet 00 every 8 Medica l (eight) Branch hours as needed for Nausea and Vomiting (N/V). ciprofloxac 2019- Yes 500 mg = 1 Memoria in 500 mg 4-04 tab, PO, l oral tablet 17:35: [id number], X [place] 00 4 day, # 8 tab, 0 Refill(s) Ondansetron 2018- Yes 4 mg = 1 Me moria 4 MG Oral 4-04 tab, PO, l Tablet 17:35: Q6H, PRN [place] [Zofran] 00 Nausea/Vom iting, # 20 tab, [...] 4-04 tab, PO, l oral tablet 17:35: [id number], X [place] 00 4 day, # 8 tab, 0 [...] s with feeding tube less than 14 [place] (Dobhoff, J-tube etc) and pediatric and patients. [...] s with feeding tube less than 14 [place] (Dobhoff, J-tube etc) and pediatric and patients. [...] Memoria 4-01 Route: PO, l 22:00: QPM, [place] Dosing Weight 75, kg, Start date: 01/23/19 [...] Memori a 01-23 interfere l 15:00: w/enteral [place] 00 feedings - Take 1 hr before [...] PO, ONCE, l mEq oral 14:20: 0 [place] tablet, 00 Refill(s) extended release Metronidazo No 500 mg, Mem oria le 500 MG 4-01 PO, l Oral Tablet 14:20: [id number], 0 H ermann [Flagyl] 00 Refill(s) Ciprofloxac No 500 mg, Mem oria in 500 MG 4-01 PO, l Oral Tablet 14:20: [id number], 0 [place] [Cipro] 00 Refill(s) potassium Yes 40 mEq, Memor ia chloride 20 4-01 PO, ONCE, l mEq oral 14:20: 0 [place] tablet, 00 Refill(s) extended release Metronidazo No 500 mg, Mem oria le 500 MG 4-01 PO, l Oral Tablet 14:20: ABXQ8H, 0 H ermann [Flagyl] 00 Refill(s) Ciprofloxac No 500 mg, Mem oria in 500 MG 4-01 PO, l Oral Tablet 14:20: [id number], 0 [place] [Cipro] 00 Refill(s) Potassium No Notes: Memori a Chloride 01-23 (Same as: l 14:17: K-Dur 20) [place] "Do Not Crush" Give with food and full glass of water For patients unable to swallow tablet, dissolve in one half glass of water. Allow about 2 minutes for the tablets to disintegra te. Stir before giving to prepare slurry and administer . Please exclude Patient s with feeding tube less than 14 [place] (Dobhoff, J-tube etc) and pediatric and patients. [...] s with feeding tube less than 14 [place] (Dobhoff, J-tube etc) and pediatric and patients. [...] oria 3-31 to exceed l 15:03: 400mg/day. [place] (Same As: Ultram) normal No 1,000 mL, [...] 3-31 Route: IM, l 09:47: Drug form: [place] 00 PDR/INJ, PRN, Dosing Weight 75.994, kg, PRN Blood Glucose Results, Start date: 01/22/19 4:47:00 CDT, Duration: 30 day, Stop date: 02/21/19 4:46:00 CDT Dextrose 2019-0 No 12.5 gm, Memor ia 50% Syringe 3-31 25 mL, l 09:47: Route: [place] 00 IVP, Drug Form: INJ, Dosing Weight [...] Memoria 3-31 (Same as: l 08:56: Zofran) [place] 00 MEDICATION WASTE Product Size: 4 mg Product Wasted: ___ mg Zofran No Notes: Memoria 3-31 (Same as: l 08:56: Zofran) [place] 00 MEDICATION WASTE Product Size: 4 mg [...] moria IV 3-31 1,000 l 08:52: ml/hr, [place] 00 Infuse Over: 1 hr, Route: IV, [...] moria IV 3-31 1,000 l 05:44: ml/hr, [place] 00 Infuse Over: 1 hr, Route: IV, 1,000, Drug form: INJ, ONCE, Priority: STAT, Dosing Weight 75.994 kg, Start date: 01/22/19 0:44:00 CDT, Stop date: 01/22/19 0:44:00 CDT Zofran No Notes: Memoria 3-31 (Same as: l 04:52: Zofran) MEDICATION WASTE Product Size: 4 mg Product Wasted: ___ mg Saline No Notes: Memoria Flush 0.9% 3-31 Same as: l 04:52: BD [place] 00 Posiflush Sterile Zofran No Notes: Memoria [...] tablet by ity of HYDROCHLORI 00:00: mouth [place] DE,) 4 mg 00 every 8 Medical tablet (eight) Branch hours. ibuprofen Yes 200mg Take 200 Uni vers (ADVIL) 200 8-15 mg by ity of mg tablet 19:02: mouth [place] 27 every 6 Medical (six) Branch hours as needed. CLONAZEPAM Yes Take by Uni vers (KLONOPIN 8-15 mouth. ity of ORAL) 19:02: [place] 27 Medical Branch CITALOPRAM Yes Take by Uni vers HYDROBROMID 8-15 mouth. ity of E 19:02: [place] (CITALOPRAM 27 Medical ORAL) Branch misoprostol Yes [...] H it y of en-caff 00:00: PRN. [place] (ESGIC) 00 Medical 50-325-40 Branch mg tablet dextroamphe Yes TK 1 T PO U nivers tamine-amph 7-20 BID. ity of etamine 00:00: [place] (ADDERALL) 00 Medical 20 mg Branch tablet amoxicillin 2014-10 Yes 500mg Take 1 Cap Univers (TRIMOX) 1-16 by mouth 3 ity o f 500 mg 00:00: (three) [place] capsule 00 times Medical daily. Branch traMADOL 2014-10 Yes 50mg Take 1 Tab Uni vers (ULTRAM) 50 1-16 by mouth ity of mg tablet 00:00: every 6 [place] 00 (six) Medical hours as Branch needed for Pain (scale 4-6). naproxen 2015-1 Yes 500mg Take 1 Tab Un parul (NAPROSYN) 1-16 by mouth 2 ity of 500 mg 00:00: (two) [place] tablet 00 times Medical daily with Branch meals. Vital Signs Vital Name Observation Time Observation Value Comments Source Systolic blood 2020-09-30 14:00:00 126 mm[Hg] Univer sity of pressure [facility] Diastolic blood 2020-09-30 14:00:00 84 mm[Hg] Unive rsity of [facility] Heart rate 2020-09-30 14:00:00 79 /min Universi ty of [facility] Oxygen saturation in 2020-09-30 14:00:00 98 /min University of Arterial blood by [facility] Pulse oximetry Branch Body temperature 2020-09-30 13:26:00 37.22 [facility] ersity of [facility] Respiratory rate 2020-09-30 13:26:00 16 /min Univ ersity of [facility] Body weight 2020-09-30 13:26:00 72.576 kg Universi ty of [facility] BMI 2020-09-30 13:26:00 28.80 kg/m2 Universi ty of [facility] Systolic blood 2020-09-30 14:00:00 126 mm[Hg] Univer sity of [facility] Diastolic blood 2020-09-30 14:00:00 84 mm[Hg] Unive rsity of [facility] Heart rate 2020-09-30 14:00:00 79 /min Universi ty of [facility] Branch Oxygen saturation in 2020-09-30 14:00:00 98 /min University of Arterial blood by [facility] Pulse oximetry Branch Body temperature 2020-09-30 13:26:00 37.22 [facility] ersity of [facility] Branch Respiratory rate 2020-09-30 13:26:00 16 /min Univ ersity [facility] Body weight 2020-09-30 13:26:00 72.576 kg Universi ty of [facility] BMI 2020-09-30 13:26:00 28.80 kg/m2 Universi ty of [facility] Temperature Oral (F) 2019-01-28 01:16:00 98.6 F [facility] [place] Systolic (mm Hg) 2019-01-28 01:16:00 Estrada nadir [place] Diastolic (mm Hg) 2019-01-28 01:16:00 Mem orial [place] Heart Rate 2019-01-28 01:16:00 Memorial [place] Respitory Rate 2019-01-28 01:16:00 Memori al [place] Systolic (mm Hg) 2019-01-27 20:42:00 Estrada rial [place] Diastolic (mm Hg) 2019-01-27 20:42:00 Mem orial [place] Heart Rate 2019-01-27 20:42:00 Memorial [place] Respitory Rate 2019-01-27 20:42:00 Memori al [place] Temperature Oral (F) 2019-01-27 20:42:00 98.5 F [facility] [place] Systolic (mm Hg) 2019-01-27 17:00:00 Estrada rial [place] Diastolic (mm Hg) 2019-01-27 17:00:00 Mem orial [place] Temperature Oral (F) 2019-01-27 17:00:00 98.5 F [facility] [place] Heart Rate 2019-01-27 17:00:00 [facility] [place] Respitory Rate 2019-01-27 17:00:00 Memori al [place] Height 2019-01-22 14:35:00 157.48 cm Memorial [place] BMI Calculated 2019-01-22 14:35:00 Memori al [place] Weight 2019-01-22 14:35:00 [facility] [place] Weight 2019-01-22 04:34:00 [facility] [place] Procedures Procedure Date / Time Performed Performing Clinician Sourc e URINALYSIS 2020-09-30 13:27:00 Chuy Jackson [facility] ADC,CLC OR LCC ONLY - 2020-09-30 13:27:[address] [facility] INFLUENZA A & B DIRECT Medical B ranch ANTIGEN COVID-19 (ID NOW RAPID 2020-09-30 13:27:00 Chuy Jackson [facility] TESTING) Medical Branch Encounters Start End Encounter Admission Attending Care Care Encounter Source Date/Time Date/Time Type Type Clinicians Facility Department ID 2019-01-22 Inpatient E [facility] [id number] [facility] W 04:39:00 2020-09-30 2020-09-30 Emergency DENIA Jackson [id number] Univers 07:22:00 08:18:00 Chuy Jimenez [id number] i ty of [place] [id number] [facility] [id number] [facility] 084 Branch 2020-09-30 2020-09-30 Emergency [facility] [id number] 07:22:00 08:18:00 Chuy Jimenez [id number] [place] [id number] [place] [id number] 2020-09-30 2020-09-30 Emergency X [facility] ERT [id number] Univers 07:22:00 07:22:00 CHUY tubbs [facility] 2020-03-04 2020-03-14 Inpatient 3 [place], [facility] PSY [id number] 15:38:00 15:25:00 [facility] 2019-01-22 2019-01-28 Inpatient [facility] [id number] Memoria 04:33:00 [facility]:40[facility] 2018-02-21 2018-02-20 [facility] [id number] 14:48:00 13:18:00 [facility] Results Test Description Test Time Test Comments Results Result Comments Source ADC,CLC OR LCC ONLY - INFLUENZA A & B DIRECT ANTIGEN 2020-09 14:04:00 Test Item Value Reference Range Interpretation Comme nts Influenza A (test code = 86310-6) Negative Negative Influenza B (test code = 53710-8) Negative Negative Lab Interpretation (test code = 72816-4) [facility]ID TEST[facility])2020-09-30 14:03:00 Test Item Value Reference Range Interpretation Comments SARS-CoV-2 Rapid ID NOW Not Detected Not Detected (test code = 63778-5) PERRY (test code = PERRY) ID NOW COVID-19 Assay is an isothermal nucleic acid amplification test intended for the qualitative detection of nucleic acid from SARS-CoV-2 viral RNA in nasopharyngeal (COMMUNICATIONS TOWER CLIMBER) specimens. It is used under Emergency Use [...] indicated. Lab Interpretation Normal (test code = 96722-8) [facility] 13:55:00 Test Item Value Reference Range Interpretation Comments APPEARANCE (test code = Hazy Clear A 8897072829) COLOR (test code = Yellow Yellow 3887249616) PH (test code = 4.8-8.0 7538150568) SP GRAVITY (test code = 1.003-1.030 8799022716) GLU U QUAL (test code = Normal Normal 0084679909) BLOOD (test code = Negative Negative 9524338742) KETONES (test code = 5 mg/dL Negative A 7019170805) PROTEIN (test code = Negative Negative 2887-8) UROBILIN (test code = 2.0 mg/dL Normal A 8796837114) BILIRUBIN (test code = Negative Negative 7907826068) NITRITE (test code = Negative Negative 1993734278) LEUK ROZINA (test code = 25/uL Negative A 6470913120) RBC/HPF (test code = See_Comment [Autom ated message] 3889800314) The system [employer] generated this result transmit ngozi reference range : 0 - 3 HPF. The refe rence range was not u sed to interpret th is result as normal/abnormal . WBC/HPF (test code = See_Comment [Autom ated message] 7012439305) The system [employer] generated this result transmit ngozi reference range : 0 - 5 HPF. The refe rence range was not u sed to interpret th is result as normal/abnormal . BACTERIA (test code = Few Negative A 6064886106) MUCOUS (test code = Slight Negative LPF A 9674001721) SQ EPITH (test code = HPF 0136395095) Lab Interpretation (test Abnormal code = 00765-3) [facility] Qijhsnbyytx2806-36-49 16:42:24 Test Item Value Reference Range Interpretation [...] = 10-24-2020 N Expiration Dt) Thyroid Stimulating Ixoqtht8590-69-99 08:35:16 Test Item Value Reference Range Interpretation Comments TSH (test code = TSH) 1.170 mIU/mL 0.270-4.200 Lipid Jjltp8167-81-08 08:21:19 Test Item Value Reference Range Interpretation Comments Cholesterol Total 254 mg/dL 0-200 H RISK OF HE ART (test code = DISEASEPublishe d by Cholesterol Total) [place] [employer] Cathie lyte Optimal Borderl ine [...] calculation is LDL/HDL Ratio=L DL Calc/HDL Chol TFZFPODPLXLU3844-01-35 08:24:008.6Memorial LkgqtmaDPNYMTFTLBBJ1332-08-71 08:24:23815Lrybnlwo BhimuphWZNYHFAZEMGS2025-48-02 08:24:0027[facility] [place] OSVZABFAGUTH1446-05-50 08:24:25180Xheiaspw UhdhhkpEQLIWFHFJOXB0083-06-56 08:24:003.6Memorial RvzhgtuHWHGNDEMJOWE1576-62-15 08:24:000.70[facility] [place] GXRFSIQOZADT6255-95-78 08:24:008.4Memorial BbhfzvhWCRQNXPJFHPA1693-63-71 08:24:03608Drhfkaig MnvwyywIOEDPJJLYDRQ3435-21-95 08:24:0086[facility] [place] UCUTMJMBLUYG2918-48-07 08:24:006Memorial YqkuvhfZMJYFOQNVV7553-59-85 08:24:00 11.6Memorial ZcxklwzZZWWXCBDXU9356-99-00 08:24:003.78[facility]annHEMATOLOGY 2019-01-26 08:24:0013.3[facility]orial ScrskziHKKVVKYPCO2586-73-84 08:24:0034.0[facility]orial ObwwcivYFQJDEGVOL3221-02-78 08:24:006.3[facility]orial NidgjmpKBVQPUWUUD0352-87-67 08:24:00 Test Item Value Reference Range Interpretation Comments MCH (test code = MCH) 30.7 pg 27.0-31.0 Memorial DjczuuaXEEVARLCOM7109-86-15 08:24:0090.3[facility] HermannHEMATOLOGY 2019-01-26 08:24:0034.2Memorial QxhqbroDCLOPVTGQR0664-11-91 08:24:51321Orceupnw HbkyhjdBODYSXVLNY7926-04-17 08:24:007.5[facility]orial YhhmujdHRGWVHHVHOYM6531-19-46 08:24:008.6Memorial AgoibxvGUJHTJYFFMFA2956-07-88 08:24:40412Rckaggpq [place] DLNXEQLUFPZG8251-38-92 08:24:0027[facility] MckxzdhINOUKYYNKVZI3845-03-14 08:24:00 139Memorial GkbdtjwYPONCQBTBEFQ0331-27-65 08:24:003.6[facility] [place] MOQOXAPMVLDA2337-35-24 08:24:000.70Memorial DmmjgeeNTWYPPYOOIHK8887-15-00 08:24:008.4Memorial CvlhcsoGDNBMGTCKGRG9020-39-54 08:24:15704Jgwqvpwa [place] GTOLFLGCBFAP9461-05-10 08:24:0086Memorial KfixqcqTGHOIWUPLQTN0475-08-98 08:24:00 6Memorial IxndigiMSRLFSMLHB4732-95-73 08:24:0011.6[facility] HermannHEMATOLOGY 2019-01-26 08:24:003.78[facility] XuzizooIJYSBEYRYR9966-27-78 08:24:0013.3[facility] IknilgbKSGBDYYTCK0491-53-52 08:24:0034.0[facility] XuzbhvcMATJRGVSFB7446-40-83 08:24:006.3[facility]orial XsxmitaYLZTGQJNGR4213-76-10 08:24:00 Test Item Value Reference Range Interpretation Comments MCH (test code = MCH) 30.7 pg 27.0-31.0 Memorial VbpdjdhTZYPPQUEKN4211-80-69 08:24:0090.3[facility] HermannHEMATOLOGY 2019-01-26 08:24:0034.2[facility]orial JyxghvyAWDPPXDJFU1454-47-63 08:24:47718Earbutdp WmrtvnsNINBUSTMHV4025-15-21 08:24:007.5[facility] HermannCHEM IVVHT1187-67-74 09:14:39564Ksxbnygs HermannCHEM OVJWW6738-27-78 09:14:008.5[facility] HermannCHEM UKDWG6914-75-80 09:14:0013.3[facility] HermannCHEM PCXGD3558-50-53 09:14:0024 [facility] HermannCHEM NVOBA0621-85-53 09:14:12633Pqmctkjn HermannCHEM PANEL 2019-01-25 09:14:0081[facility] HermannCHEM TMWJU5592-18-36 09:14:002[facility] HermannCHEM ZCENH2910-66-98 09:14:003.3[facility] HermannCHEM PLOOY1186-45-66 09:14:000.60[facility] HermannCHEM BZKUA3544-97-79 09:14:32659Aqdnewlw HermannCHEM CHHQI4418-57-55 09:14:14741Zbpgdbhj HermannCHEM PARBP0615-50-64 09:14:008.5 [facility]annCHEM BIQJI0827-09-99 09:14:0013.3[facility] HermannCHEM PANEL 2019-01-25 09:14:0024Mem[facility] HermannCHEM YUJRU9251-22-64 09:14:16287Ywqdpree HermannCHEM YPAXU1908-91-68 09:14:0081[facility] HermannCHEM LDMXL0554-18-89 09:14:002[facility] HermannCHEM LSQEC9367-23-63 09:14:003.3[facility] HermannCHEM KFGGD9242-80-14 09:14:000.60[facility] HermannCHEM GYTZO9449-58-13 09:14:85069 [facility] HermannMOLECULAR OTBTDMCAMJ2198-76-83 16:22:00Negative (01/23/19 11:22 AM)[facility] HermannMOLECULAR OBYJNQZIEB8407-16-54 16:22:00Negative (01/23/19 11:22 AM)[facility] HermannCHEM KGEBT9013-86-64 15:42:002.76[facility] HermannCHEM PANEL 2019-01-23 15:42:002.76[facility] HermannCHEM OKOWW9562-92-60 12:32:000.9[facility] HermannCHEM SSNJD9482-85-83 12:32:000.9[facility] HermannCHEM UFFRJ5418-89-94 10:50:002.0[facility] HermannCHEM UHGCI1407-86-77 10:50:42157Pobioboh HermannCHEM JPORH3864-77-56 10:50:0023[facility] HermannCHEM RTTIG4527-97-64 10:50:08570 [facility] HermannCHEM CLRDN7325-63-46 10:50:003.1[facility] HermannCHEM PANEL 2019-01-23 10:50:36188Rdzjjqwz HermannCHEM OHSQC3617-03-76 10:50:005[facility] HermannCHEM CZAOZ6224-95-76 10:50:000.50[facility] HermannCHEM HKOGI8798-40-69 10:50:007.8[facility] HermannCHEM UKPRM1665-53-66 10:50:0083[facility] HermannCHEM NBGBR9096-19-40 10:50:0010.1Memorial PnuxxtrUVCNSZAKLR4338-74-27 10:50:000.2 Memorial HvollenOKPDWMWYBM0629-81-40 10:50:000.8[facility] HermannHEMATOLOGY 2019-01-23 10:50:005.5[facility]orial CyrywunSCEOYWIOMD0957-14-18 10:50:002.2Memorial VgscojxDPLLOLUOEP7538-02-85 10:50:000.1[facility]orial FubjxjbHHTVLUILIN1195-29-52 10:50:0063.6[facility]orial VitvzjiFKLTKSILKR5590-93-44 10:50:008.9[facility] [place] GSQIMRQRZT9458-69-27 10:50:002.3Memorial ZmffupxSWRWFUCNDF2650-55-21 10:50:00 Normal (01/23/19 5:50 AM)[facility] UzsbezmUXMPGLBKPB2089-31-44 10:50:00Normal (01/23/19 5:50 AM)[facility]orial EdnponmSQFNDCDVKA3462-73-09 10:50:0025.1[facility]orial XjnttleOJZCKTMHGX2335-55-34 10:50:0013.1[facility]orial GrnngslAACRNAQNQP4590-30-95 10:50:69334Ffxwnrir QjwisbhBSTFQROLKZ4253-76-57 10:50:007.7[facility] YHWONKIEHN1168-89-50 10:50:008.6[facility]orial LezqfmmSRRTIZDNKR5309-47-90 10:50:00 10.0Memorial HklqivoPNJPTRYCMF9393-78-17 10:50:0034.6[facility] HermannHEMATOLOGY 2019-01-23 10:50:0028.7Memorial MrdoipbNWQLIRAWBG7093-39-91 10:50:0087.8Memorial WucacmgDAAFRFWMCN6380-53-01 10:50:00 Test Item Value Reference Range Interpretation Comments MCH (test code = MCH) 30.4 pg 27.0-31.0 Memorial ZrhyhhtCBUJPLFXVF0971-08-80 10:50:003.27[facility] HermannCHEM PANEL 2019-01-23 10:50:002.0[facility] HermannCHEM ADMLK4044-87-56 10:50:30378Yqbrjesm HermannCHEM BVSNO9883-18-23 10:50:0023[facility] HermannCHEM CEDNA1211-33-29 10:50:67462Hnolqxek HermannCHEM JDJLK6270-12-43 10:50:003.1[facility] HermannCHEM QTZGU8929-76-33 10:50:10820Nirybzls HermannCHEM LDWWV9433-50-41 10:50:005 [facility] HermannCHEM RXICE0047-65-15 10:50:000.50[facility] HermannCHEM PANEL 2019-01-23 10:50:007.8[facility] HermannCHEM SXKPX9477-26-07 10:50:0083[facility] HermannCHEM LTQKV4900-48-04 10:50:0010.1[facility]orial EkcblhxRHUBAKKAGM3277-37-28 10:50:000.2[facility] JrkmttrXDRXCNGISW0053-13-86 10:50:000.8[facility] SBLRFCCUKV5836-51-25 10:50:005.5[facility] MxgrmmgELJZQPFBCO9967-55-23 10:50:002.2 Memorial YxlhjvaYRGOLZOTBV0718-12-21 10:50:000.1[facility] HermannHEMATOLOGY 2019-01-23 10:50:0063.6[facility] WgmfxebMEIQPKDSKZ0009-66-72 10:50:008.9[facility] DldnutpIYQTJUADSZ2020-71-49 10:50:002.3[facility] PhypvnaHBZTXHAUPO7453-54-07 10:50:00Normal (01/23/19 5:50 AM)[facility] PuodamyVFWHTPNRPD7269-32-41 10:50:00 Normal (01/23/19 5:50 AM)[facility] AgynsntTGZOIAKKCP7323-52-41 10:50:0025.1[facility] HtnilvxDKKBIMPHMS9954-82-34 10:50:0013.1[facility] KoyftqzZDMTTMYTZV3405-57-75 10:50:90987Vdujvvgl NaucsawVEWTFDSJQG4407-19-13 10:50:007.7[facility] [place] SLZHDYTYAD1546-71-31 10:50:008.6[facility] ZpvalcpNMJHREYOUF6998-61-45 10:50:00 10.0[facility] XczhoehQYONCKQAGG1285-36-06 10:50:0034.6[facility] HermannHEMATOLOGY 2019-01-23 10:50:0028.7[facility] FrzljcyFNYBFCHJHR1054-97-58 10:50:0087.8[facility] ZabryyxJCJMGVAKEY0105-98-45 10:50:00 Test Item Value Reference Range Interpretation Comments MCH (test code = MCH) 30.4 pg 27.0-31.0 Memorial YasruqbGWMGJWIULA4386-43-88 10:50:003.27[facility] HermannCHEM PANEL 2019-01-22 11:32:002.4[facility] HermannCHEM QBLHM9816-07-46 11:32:002.4[facility] HermannCHEM VNRRX7553-13-75 09:04:003.0[facility] HermannCHEM CXYGO4373-56-19 09:04:003.0[facility] HermannURINE AND ATIIQ7449-59-55 07:14:00<1[facility]annURINE AND VSQPN2254-43-10 07:14:0025[facility] HermannURINE AND STOOL 2019-01-22 07:14:002[facility]annURINE AND AGPUK1127-15-77 07:14:00Light Yellow *NA*(01/22/19 2:14 AM)[facility]annUR[facility] AND EGCZP4113-13-02 07:14:00 Clear (01/22/19 2:14 AM)[facility] [id number] 07:14:00 Test Item Value Reference Range Interpretation Comments UA Spec Grav (test code = UA Spec 1.014 1 Grav) [facility] [id number] 07:14:00 Test Item Value Reference Range Interpretation Comments UA pH (test code = UA pH) 6.0 1 5.0-8.0 [facility] [id number] 07:14:00Negative (01/22/19 2:14 AM) [facility] [id number] 07:14:00Negative *NA*(01/22/19 2:14 AM) [facility] [id number] 07:14:00Negative *NA*(01/22/19 2:14 AM) [facility] [id number] 07:14:00Negative *NA*(01/22/19 2:14 AM) [facility] [id number] 07:14:00Negative (01/22/19 2:14 AM) [facility] [id number] 07:14:00Negative (01/22/19 2:14 AM) [facility] [id number] 07:14:00Negative (01/22/19 2:14 AM) [facility] [id number] 07:14:00<1[facility] [id number] 07:14:0025[facility] [id number] 07:14:002 [facility] [id number] 07:14:00Light Yellow *NA*(01/22/19 2:14 AM)[facility] [id number] 07:14:00Clear (01/22/19 2:14 AM) [facility] [id number] 07:14:00 Test Item Value Reference Range Interpretation Comments UA Spec Grav (test code = UA Spec 1.014 1 Grav) [facility] [id number] 07:14:00 Test Item Value Reference Range Interpretation Comments UA pH (test code = UA pH) 6.0 1 5.0-8.0 [facility] [id number] 07:14:00Negative (01/22/19 2:14 AM) [facility] [id number] 07:14:00Negative *NA*(01/22/19 2:14 AM) [facility] [id number] 07:14:00Negative *NA*(01/22/19 2:14 AM) [facility] [id number] 07:14:00Negative *NA*(01/22/19 2:14 AM) [facility] [id number] 07:14:00Negative (01/22/19 2:14 AM) [facility] [id number] 07:14:00Negative (01/22/19 2:14 AM) [facility] [id number] 07:14:00Negative (01/22/19 2:14 AM) [facility] [id number] 05:16:000.90[facility] CyndwpeYXTPA8307-76-86 05:16:000[facility]90[facility] ASOPSNJ9683-54-72 05:01:00Negative (01/22/19 12:01 AM)[facility] REVOULR7361-93-56 05:01:00<0.02 [facility] GIVRWVJ9035-72-10 05:01:0049[facility]annCHEM PANEL 2019-01-22 05:01:000.6[facility]annCHEM LIZNO5439-18-22 05:01:36737Azigmndr HermannCHEM UNJMS4006-01-02 05:01:004.0[facility]annCHE[facility] DDGPR5655-14-51 05:01:0017[facility]annCHE[facility] CDFAB9302-26-68 05:01:0025[facility]annCHE[facility] YOPND5261-24-31 05:01:008.1[facility]CHE[facility] YWBGC5279-63-93 05:01:00 Test Item Value Reference Range Interpretation Comments B/C Ratio (test code = B/C Ratio) 20 1 6-25 [facility]CHE[facility] VMRYP0527-28-40 05:01:00 Test Item Value Reference Range Interpretation Comments A/G Ratio (test code = A/G Ratio) 1.0 1 0.7-1.6 [facility]CHE[facility] HFVVE1241-01-78 05:01:004.1[facility]annCHEM PANEL 2019-01-22 05:01:006.90[facility] HukekunRODVIHNMXPSPL4523-09-41 05:01:00Negative *NA*(01/22/19 12:01 AM)[facility] QomgeagYMRHODVIYC9035-62-88 05:01:000.1[facility] QhlryidJLSJCYRCEU2191-06-52 05:01:000.7[facility] SzckjhfNAYCCYOEKC6786-18-15 05:01:000.0[facility] DybwaheFZFQYHIBMM8876-38-22 05:01:000.0[facility] HTVATGVORU2203-70-23 05:01:000.9[facility] KeouokkZRXJTZJGEJ6168-06-09 05:01:008.6 [facility] ZksxviqQBXBVQTKQU7969-58-44 05:01:000.6[facility]annHEMATOLOGY 2019-01-22 05:01:0086.5[facility] JjacbjmRJMDZXLYEV9119-79-39 05:01:005.7[facility] RqwrkiwEDEXHMYCTA4655-58-10 05:01:006.9[facility] TnyjhmmOGQPYUDNWI2110-26-81 05:01:009.9[facility] LptdxmcQQHUPIOBMU1380-15-88 05:01:0032.8[facility] MWHYMJSBCQ7974-19-72 05:01:0013.6[facility] BcqdgoaBXDFTPURUT1332-82-65 05:01:00 443[facility] SsevbuoFLKGXODWXU7028-68-90 05:01:007.3[facility]annHEMATOLOGY 2019-01-22 05:01:0014.0[facility] YvaiqlbWQUWOVVPUF2833-86-98 05:01:004.85[facility] PvxemdqSUBXPRFNJK1723-68-84 05:01:0042.7[facility] VibevomSNPXICSPNA3030-17-91 05:01:00 Test Item Value Reference Range Interpretation Comments MCH (test code = MCH) 29.0 pg 27.0-31.0 [facility] EimgpayXPSIMXYVSW9142-21-74 05:01:0088.2[facility]annHEMATOLOGY 2019-01-22 05:01:00 Test Item Value Reference Range Interpretation Comments INR (test code = INR) 0.96 1 0.85-1.17 [facility] KjdzpixXOCXEYQNNJ8091-43-49 05:01:00 Test Item Value Reference Range Interpretation Comments PT (test code = PT) 12.6 s 12.0-14.7 [facility]fzeyjqAGQURLXUAA2425-74-33 05:01:00 Test Item Value Reference Range Interpretation Comments PTT (test code = PTT) 25.9 s 22.9-35.8 [facility] LSSFCFU7852-17-79 05:01:00Negative (01/22/19 12:01 AM) [facility]CARDI[facility] XONCCYX4285-81-55 05:01:00<0.02[facility] CARDIAC ZJADLTW6101-74-75 05:01:0049[facility]annCHEM XRZXE8288-70-43 05:01:000.6[facility]annCHEM LGSMS4729-79-09 05:01:88357Tbkobckz HermannCHEM SLROO8254-62-20 05:01:004.0[facility]annCHEM QRBVV4980-70-50 05:01:0017 [facility]annCHE[facility] HJTXY1702-81-86 05:01:0025[facility]annCHEM PANEL 2019-01-22 05:01:008.1[facility]annCHEM QDNIU9611-58-90 05:01:00 Test Item Value Reference Range Interpretation Comments B/C Ratio (test code = B/C Ratio) 20 1 6-25 [facility]annCHE[facility] ZRCDU8314-83-70 05:01:00 Test Item Value Reference Range Interpretation Comments A/G Ratio (test code = A/G Ratio) 1.0 1 0.7-1.6 [facility]annCHEM BGWIE0836-88-88 05:01:004.1[facility]annCHEM PANEL 2019-01-22 05:01:006.90[facility] EpipajvQBXVOUMJPTPPP0089-09-36 05:01:00Negative *NA*(01/22/19 12:01 AM)[facility] YkjfstzGFSTXROETA3533-55-16 05:01:000.1[facility] XzvjdwyMZVKIBHTNE8347-24-82 05:01:000.7[facility] IpidfmhUFYQBLEDZZ8749-34-90 05:01:000.0[facility] PlejbxqPQOFTPUOKP2296-85-52 05:01:000.0[facility] PZKROSOSQC8330-89-54 05:01:000.9[facility] NhtmkrwTXQWQKCHKT6530-22-04 05:01:008.6 [facility] EenvdtgGZTGDPDAQP4809-46-12 05:01:000.6[facility]annHEMATOLOGY 2019-01-22 05:01:0086.5[facility] LvdvdwuLXOKZWGZTO8217-38-18 05:01:005.7[facility] TsjjetrJINUYRKYCS8304-71-11 05:01:006.9[facility] ZraxbjpTIWRGXSEGA5597-92-91 05:01:009.9[facility] NcvcstrAOKGJPDNIG2808-30-42 05:01:0032.8[facility] POKWTOZZEF7796-90-74 05:01:0013.6[facility] ZbpbaeaZPVYVUUEVT8452-61-02 05:01:00 443[facility] VxgabevCRSRZGRTGL6746-39-10 05:01:007.3[facility]annHEMATOLOGY 2019-01-22 05:01:0014.0[facility] RgmgpdyHEVLLAXBFS7074-79-73 05:01:004.85[facility] JbcvofvAYUHQOPUQO6754-35-42 05:01:0042.7[facility] JwdwhehVNPOSLCRIF0000-27-83 05:01:00 Test Item Value Reference Range Interpretation Comments MCH (test code = MCH) 29.0 pg 27.0-31.0 [facility] TempleCbgzcijDKMSXWAWSE0948-50-41 05:01:0088.2[facility]annHEMATOLOGY 2019-01-22 05:01:00 Test Item Value Reference Range Interpretation Comments INR (test code = INR) 0.96 1 0.85-1.17 [facility]GFHGUZAMOO1451-[facility]-72 05:01:00 Test Item Value Reference Range Interpretation Comments PT (test code = PT) 12.6 s 12.0-14.7 [facility]bSJLMORCDJJ2521-26-53 05:01:00 Test Item Value Reference Range Interpretation Comments PTT (test code = PTT) 25.9 s 22.9-35.8 [facility]JU7Y6775-76-87 14:36:00 Test Item Value Reference Range Interpretation [...] 0.00-0.01 N code = ETOHU) Comprehensive Metabolic Odhkw4837-11-84 14:36:00 Test Item Value Reference Range Interpretation [...] the [employer],http :[email or web address] ep.nih.gov Urinalysis Myyytpor7182-82-92 14:32:00 Test Item Value Reference Range Interpretation Comments Color (test code = COLOR) Yellow Yellow,Straw,Pl N yellow Clarity (test code = Clear Clear N CLAR) Specific [place] (test 1.024 1.001-1.035 N code = SPGR) [...] code = Few /HPF BACT) CBC with Qrfxqhntskix4947-80-36 14:21:00 Test Item Value Reference Range Interpretation [...] code = ALYMPH) 3.0 K/cumm 0.5-4.6 [address] [place] Abs (test code = AMONO) 0.5 K/cumm 0.0-1.2 N Eos Abs (test code = AEOS) 0.19 K/cumm 0.00-0.74 N Baso Abs (test code = ABASO) 0.1 K/cumm 0.00-0.21 N
== END 2021-09-05 20:40 | disposition home or self-care (01) ==
LOC: ER 15:43
DX: F41.9 Anxiety disorder, unspecified (principal)
CPT/HCPCS: 36415; 84484; 99284

== ENCOUNTER 2021-09-07 20:40 | Emergency (ER) | payer OTHER ==
--- OUTSIDE RECORDS SUMMARY | 2021-09-07 20:46 | XMS REPORT | Continuity of Care Document ---
:1970 Author Organization [facility] t Address [address] [place] [address] Care Team Providers Name Role Phone UNKNOWN Primary Care Physician Unavailable Humaira-Mbayo_A_AH Attending Clinician Unavailable Jackson DO Attending Clinician JACKSON Attending Clinician Unavailable Chente Attending Clinician Unavailable Chente Attending Clinician Unavailable AFUWAPE Attending Clinician Unavailable Humaira-Mbayo_A_AH Admitting Clinician Unavailable Chente Admitting Clinician Unavailable AFUWAPE Admitting Clinician Unavailable Payers Payer Name Policy Type Policy Number Effective Date Expiration Date S [facility] [place] - [id number] 2020 [employer] 00:00:00 (MEDICARE REPLACEMENT/ADVANT AGE - HMO) Problems Condition Condition Condition Status Onset Resolution Last Treating Co mments Source Name Details Category Date Date Treatment Clinician Date LOW PB Diagnosis Active 2019-01-22 Mem oria 01-21 01:52:00 l LOW PB 00:00: [facility] 00 Active 01/21/2019 [place] INFECTIOUS Diagnosis Active 2019-02-06 Memoria GASTROENTE 01-21 08:58:00 l RITIS AND 00:00: Yonis COLITIS INFECTIOUS 00 GASTROENTE RITIS AND COLITIS Active 01/21/2019 [facility] Irregular Irregular Disease Active Uni vers menstrual menstrual 8-15 ity of cycle cycle 00:00: [address] Skin Skin Disease Active Univers lesion lesion 8-15 ity of 00:00: [address] Psychiatri Psychiatri Disease Active U nivers c disorder c disorder 8-15 it y of 00:00: [place] 00 Medical Branch Well woman Well woman Disease Active U nivers exam with exam with 8-15 ity of routine routine 00:00: [place] gynecologi gynecologi 00 Me dical nicky exam nicky exam Branch INFECTIOUS Diagnosis Active 2019-02-06 Memoria GASTROENTE 08:58:00 l RITIS AND Yonis COLITIS, INFECTIOUS GASTROENTE RITIS AND COLITIS, Active [facility] Allergies, Adverse Reactions, Alerts Allergy Allergy Status Severity Reaction(s) Onset Inactive Treating Comm ents Source Name Type Date Date Clinician NO KNOWN Drug Active Univers ALLERGIE Class ity of S [facility] Phenerga Phenerga Active Memori a n n l [facility] Social History Social Habit Start Date Stop Date Quantity Comments Source History of Cigarette Smoker [facility] ty of tobacco use [facility] Tobacco Comment 2-3 cigs a day [facility] Sex Assigned At [facility] y of [facility] Exposure to Not sure [facility] SARS-CoV-2 [facility] (event) Branch Tobacco use and 2016-06-08 2016-06-08 Never used [facility] y of exposure 00:00:00 00:00:00 [facility] Alcohol intake 2016-06-08 2016-06-08 Current University 00:00:00 00:00:00 non-drinker of [facility] alcohol (finding) Branch Smoking Status Start Date Stop Date Source Social History 2019-01-22 05:00:12 Jeanne urena Current some day smoker 2016-06-08 00:00:00 [facility] Medications Ordered Filled Start Stop Current Ordering Indication Dosage Frequency Signature Comments Components Source Medication Medication Date Date Medication? Clinician (SIG) Name Name ondansetron 2019-10 2020- No 4mg 4 mg, Univ ers (ZOFRAN-ODT 12-01 Oral, ity of ) 15:15: 14:16 ONCE, 1 [place] disintegrat 00 :00 dose, Mon Med ical ing tablet 09/30/20 at Bra nch 4 mg 0915, Routine ondansetron 2019-10 2020- No 4mg 4 mg, Univ ers (ZOFRAN-ODT 12-01- Oral, ity of ) 14:30: 13:32 ONCE, 1 [place] disintegrat 00 :00 dose, Mon Med ical ing tablet 09/30/20 at Bra n[facility] 4 mg 0830, Routine ondansetron 2019-10 Yes [id number] 4mg Take 1 Univers 4 mg 2-07 tablet by ity of disintegrat 00:00: mouth [place] ing tablet 00 every 8 Medica l (eight) Branch hours as needed for Nausea and Vomiting (N/V). ciprofloxac 2019- Yes 500 mg = 1 Memoria in 500 mg 4-04 tab, PO, l oral tablet 17:35: [id number], X Yonis 00 4 day, # 8 tab, 0 Refill(s) Ondansetron 2019- Yes 4 mg = 1 Me moria 4 MG Oral 4-04 tab, PO, l Tablet 17:35: Q6H, PRN [facility] [Zofran] 00 Nausea/Vom iting, # 20 tab, [...] 4-04 tab, PO, l oral tablet 17:35: PHAE26Q, X Yonis 00 4 day, # 8 tab, 0 Refill(s) Ondansetron 2019- Yes 4 mg = 1 Me moria 4 MG Oral 4-04 tab, PO, l Tablet 17:35: Q6H, PRN [facility] [Zofran] 00 Nausea/Vom iting, # 20 tab, [...] day, # 12 tab, 0 Refill(s) Potassium No Notes: Memori a Chloride 4-03 (Same as: l 13:26: K-Dur 20) Yonis 00 "Do Not Crush" Give with food and full glass of water For patients unable to swallow tablet, dissolve in one half glass of water. Allow about 2 minutes for the tablets to disintegra te. Stir before giving to prepare slurry and administer . Please exclude Patient s with feeding tube less than 14 Russian (Dobhoff, J-tube etc) and pediatric and patients. Potassium No Notes: Memori a Chloride 4-03 (Same as: l 13:26: K-Dur 20) Yonis 00 "Do Not Crush" Give with food and full glass of water For patients unable to swallow tablet, dissolve in one half glass of water. Allow about 2 minutes for the tablets to disintegra te. Stir before giving to prepare slurry and administer . Please exclude Patient s with feeding tube less than 14 Russian (Dobhoff, J-tube etc) and pediatric and patients. Strattera 0 No 0.5 mg/kg, Me moria 4-02 Route: PO, l 14:00: QAMAlberYonis 00 Dosing Weight 75, kg, Start date: 01/24/19 9:00:00 CDT, Duration: 30 day, Stop date: 02/22/19 9:00:00 CDT Strattera 2019-0 No 0.5 mg/kg, Me moria 4-02 Route: PO, l 14:00: QAM, Yonis 00 Dosing Weight 75, kg, Start date: 01/24/19 9:00:00 CDT, Duration: 30 day, Stop date: 02/22/19 9:00:00 CDT lithium No Notes: Do Memor ia 4-02 not crush l 02:00: or chew. Yonsi 00 (Same as: Eskalith-C R) lithium 0 No Notes: Do Memor ia 4-02 not crush l 02:00: or chew. Yonis (Same as: Eskalith-C R) Risperdal No Notes: Memori a 4-01 (Same as: l 22:00: Risperdal) Strattera No 1 mg, Memoria 4- Route: PO, l 22:00: QPM, Dosing Weight 75, kg, Start date: 01/23/19 17:00:00 CDT, Duration: 30 day, Stop date: 02/21/19 17:00:00 CDT Risperdal No Notes: Memori a 4- (Same as: l 22:00: Risperdal) Strattera No 1 mg, Memoria 4- Route: PO, l 22:00: QPM, Dosing Weight 75, kg, Start date: 01/23/19 17:00:00 CDT, Duration: 30 day, Stop date: 02/21/19 17:00:00 CDT normal No 1,000 mL, Memori a saline 0.9% 01-23 Rate: 100 l IV 1,000 mL 19:18: ml/hr, Herm stephon Infuse over: 10 hr, Route: IV, Dosing Weight 75 kg, Total Volume: 1,000, Start date: 01/23/19 14:18:00 CDT, Duration: 30 day, Stop date: 02/22/19 14:17:00 CDT, 1.84, m2 normal No 1,000 mL, Memori a saline [...] food/ avoid alcohol Cipro No Notes: February Memori a 01-23 interfere l 15:00: w/enteral [facility] 00 feedings - Take 1 hr before or 2 hrs after antacids, dairy pdt & minerals. On empty stomach. Flagyl No Notes: Memoria 01-23 (Same as: l 15:00: Flagyl) Yonis 00 [...] 500 mg, Mem oria le 500 MG 401 PO, l Oral Tablet 14:20: ABXQ8H, 0 H ermann [Flagyl] 00 Refill(s) Ciprofloxac No 500 mg, Mem oria in 500 MG 401 PO, l Oral Tablet 14:20: [id number], 0 [facility] [Cipro] 00 Refill(s) potassium Yes 40 mEq, Memor ia chloride 20 4-01 PO, ONCE, l mEq oral 14:20: 0 [facility] tablet, 00 Refill(s) extended release Metronidazo No 500 mg, Mem oria le 500 MG 4-01 PO, l Oral Tablet 14:20: ABXQ8H, 0 H ermann [Flagyl] 00 Refill(s) Ciprofloxac No 500 mg, Mem oria in 500 MG 4-01 PO, l Oral Tablet 14:20: [id number], 0 Yonis [Cipro] 00 Refill(s) Potassium 2019 No Notes: Memori a Chloride 4-01 (Same as: l 14:17: K-Dur 20) [facility] 00 "Do Not Crush" Give with food and full glass of water For patients unable to swallow tablet, dissolve in one half glass of water. Allow about 2 minutes for the tablets to disintegra te. Stir before giving to prepare slurry and administer . Please exclude Patient s with feeding tube less than 14 Russian (Dobhoff, J-tube etc) and pediatric and patients. Potassium 2019 No Notes: Memori a Chloride 4-01 (Same as: l 14:17: K-Dur 20) Yonis 00 "Do Not Crush" Give with food and full glass of water For patients unable to swallow tablet, dissolve in one half glass of water. Allow about 2 minutes for the tablets to disintegra te. Stir before giving to prepare slurry and administer . Please exclude Patient s with feeding tube less than 14 Russian (Dobhoff, J-tube etc) and pediatric and patients. Pepcid No Notes: Memoria 3-31 (Same as: l 22:00: Pepcid) Yonis 00 Pepcid No Notes: Memoria 3-31 (Same as: l 22:00: Pepcid) Yonis 00 Strattera Yes 0.5 mg/kg, Me moria 3-31 PO, QAM, 0 l 21:08: Refill(s) Yonis 00 lithium 450 2019- Yes 450 mg = 1 Memoria mg oral 3-31 tab, PO, l tablet, 21:08: Bedtime, # Herm stephon extended 00 60 tab, 0 release Refill(s) clonazePAM 2018- Yes 0.5 mg = 1 M emoria 0.5 mg oral 3-31 tab, PO, l tablet 21:08: TID, # 90 Reji n 00 tab, 0 Refill(s) Risperidone 2019- Yes 0.5 mg = 1 Memoria 0.5 MG Oral 3-31 tab, PO, l Tablet 21:08: BID, 0 Yonis [Risperdal] 00 Refill(s) Strattera Yes 0.5 mg/kg, Me moria 3-31 [...] tab, PO, l Tablet 21:08: BID, 0 [facility] [Risperdal] 00 Refill(s) Zosyn No Notes: Memoria [...] 3-31 to exceed l 15:03: 400mg/day. Yonis 00 (Same As: Ultram) Tramadol No Notes: Not Mem oria 3-31 to exceed l 15:03: 400mg/day. Trinity (Same As: Ultram) normal No 1,000 mL, [...] mg Glucagon 2019-0 No 1 mg, Memoria 01-22 Route: IM, [...] Estrada doni 3-31 (Same as: l 09:47: Zoan) MEDICATION WASTE Product Size: 4 mg Product Wasted: ___ mg Glucagon 0 No 1 mg, Memoria 01-22 Route: IM, l 09:47: Drug form: [facility] 00 PDR/INJ, PRN, Dosing Weight 75.994, kg, PRN Blood Glucose Results, Start date: 01/22/19 4:47:00 CDT, Duration: 30 day, Stop date: 02/21/19 4:46:00 CDT Dextrose 2018-0 No 12.5 gm, Memor ia 50% Syringe - 25 mL, l 09:47: Route: [facility] 00 IVP, Drug Form: INJ, Dosing Weight 75.994, kg, PRN, PRN Blood Glucose Results, Start date: 01/22/19 4:47:00 CDT, Duration: 30 day, Stop date: 02/21/19 4:46:00 CDT Zofran No Notes: Memoria 3-31 (Same as: l 08:56: Zofran) MEDICATION WASTE Product Size: 4 mg Product Wasted: ___ mg Zofran No Notes: Memoria 3-31 (Same as: l 08:56: Zofran) MEDICATION WASTE Product Size: 4 mg Product Wasted: ___ mg NS (Bolus) No 1,000 mL, Me moria IV 3-31 1,000 l 08:52: ml/hr, Infuse Over: 1 hr, Route: IV, 1,000, Drug form: INJ, ONCE, Priority: STAT, Dosing Weight 75.994 kg, Start date: 01/22/19 3:52:00 CDT, Stop date: 01/22/19 3:52:00 CDT NS (Bolus) No 1,000 mL, Me moria IV 3-31 1,000 l 08:52: ml/hr, Infuse Over: 1 hr, Route: IV, [...] moria IV - 1,000 l 05:44: ml/hr, Yonsi 00 Infuse Over: 1 hr, Route: IV, 1,000, Drug form: INJ, ONCE, Priority: STAT, Dosing Weight 75.994 kg, Start date: 01/22/19 0:44:00 CDT, Stop date: 01/22/19 0:44:00 CDT Zofran No Notes: Memoria 3-31 (Same as: l 04:52: Zofran) [facility] 00 MEDICATION WASTE Product Size: 4 mg Product Wasted: ___ mg Saline No Notes: Memoria Flush 0.9% 3-31 Same as: l 04:52: BD Yonis 00 Posiflush Sterile Zofran No Notes: Memoria 3-31 (Same as: l 04:52: Zofran) Yonis 00 MEDICATION WASTE Product Size: 4 mg Product Wasted: ___ mg Saline No Notes: Memoria Flush 0.9% 3-31 Same as: l 04:52: BD [facility] 00 Posiflush Sterile NS (Bolus) No 1,000 mL, Me moria IV 3- 1,000 l 04:51: ml/hr, Yonis 00 Infuse Over: 1 hr, Route: IV, 1,000, Drug form: INJ, ONCE, Priority: STAT, Dosing Weight 75.994 kg, Start date: 01/21/19 23:51:00 CDT, Stop date: 01/21/19 23:51:00 CDT NS (Bolus) 2018-0 No 1,000 mL, Me moria IV 3-31 1,000 l 04:51: ml/hr, [facility] 00 Infuse Over: 1 hr, Route: IV, 1,000, Drug form: INJ, ONCE, Priority: STAT, Dosing Weight 75.994 kg, Start date: 01/21/19 23:51:00 CDT, Stop date: 01/21/19 23:51:00 CDT ondansetron Yes 4mg Take 1 Univ ers (ZOFRAN, 1-27 tablet by ity of HYDROCHLORI 00:00: mouth [place] DE,) 4 mg 00 every 8 Medical tablet (eight) Branch hours. ibuprofen Yes 200mg Take 200 Uni vers (ADVIL) 200 8-15 mg by ity of mg tablet 19:02: mouth [place] 27 every 6 Medical (six) Branch hours as needed. CLONAZEPAM Yes Take by Uni vers (KLONOPIN 8-15 mouth. ity of ORAL) 19:02: [place] 27 Medical Branch CITALOPRAM Yes Take by Uni vers HYDROBROMID 8-15 mouth. ity of E 19:02: [place] (CITALOPRAM 27 Medical ORAL) Branch misoprostol Yes [...] H it y of en-caff 00:00: PRN. [place] (ESGIC) 00 Medical 50-325-40 Branch mg tablet dextroamphe Yes TK 1 T PO U nivers tamine-amph 7-20 BID. ity of etamine 00:00: [place] (ADDERALL) 00 Medical 20 mg Branch tablet amoxicillin 2014-10 Yes 500mg Take 1 Cap Univers (TRIMOX) 1-16 by mouth 3 ity o f 500 mg 00:00: (three) [place] capsule 00 times Medical daily. Branch traMADOL 2014-10 Yes 50mg Take 1 Tab Uni vers (ULTRAM) 50 1-16 by mouth ity of mg tablet 00:00: every 6 [place] 00 (six) Medical hours as Branch needed for Pain (scale 4-6). naproxen 2014-10 Yes 500mg Take 1 Tab Un parul (NAPROSYN) 1-16 by mouth 2 ity of 500 mg 00:00: (two) [place] tablet 00 times Medical daily with Branch meals. Vital Signs Vital Name Observation Time Observation Value Comments Source Systolic blood 2020-09-30 14:00:00 126 mm[Hg] Univer sity of [facility] Diastolic blood 2020-09-30 14:00:00 84 mm[Hg] Unive rsity of [facility] Heart rate 2020-09-30 14:00:00 79 /min Universi ty [facility] [place] [facility] Oxygen saturation in 2020-09-30 14:00:00 98 /min University of Arterial blood by [facility] Pulse oximetry Branch Body temperature 2020-09-30 13:26:00 37.22 Ruthann [facility] Respiratory rate 2020-09-30 13:26:00 16 /min Univ [facility] Body weight 2020-09-30 13:26:00 72.576 kg Universi ty [facility] [place] [facility] BMI 2020-09-30 13:26:00 28.80 kg/m2 Universi ty [facility] [place] [facility] Systolic blood 2020-09-30 14:00:00 126 mm[Hg] Univer sity of [facility] Diastolic blood 2020-09-30 14:00:00 84 mm[Hg] [facility] Heart rate 2020-09-30 14:00:00 79 /min Universi ty [facility] [place] [facility] Oxygen saturation in 2020-09-30 14:00:00 98 /min University of Arterial blood by [facility] Pulse oximetry Branch Body temperature 2020-09-30 13:26:00 37.22 Ruthann [facility] Respiratory rate 2020-09-30 13:26:00 16 /min Univ [facility] Body weight 2020-09-30 13:26:00 72.576 kg Universi ty [facility] [place] [facility] BMI 2020-09-30 13:26:00 28.80 kg/m2 Universi ty of [place] [facility] Temperature Oral (F) 2019-01-28 01:16:00 98.6 F [facility] Systolic (mm Hg) 2019-01-28 01:16:00 Estrada rial Yonis Diastolic (mm Hg) 2019-01-28 01:16:00 Mem orial [facility] Heart Rate 2019-01-28 01:16:00 [facility] Respitory Rate 2019-01-28 01:16:00 Memori al Yonis Systolic (mm Hg) 2019-01-27 20:42:00 Estrada rial Yonis Diastolic (mm Hg) 2019-01-27 20:42:00 Mem orial [facility] Heart Rate 2019-01-27 20:42:00 [facility] Respitory Rate 2019-01-27 20:42:00 Memori al Yonis Temperature Oral (F) 2019-01-27 20:42:00 98.5 F Memorial Yonis Systolic (mm Hg) 2019-01-27 17:00:00 Estrada rial [facility] Diastolic (mm Hg) 2019-01-27 17:00:00 Mem orial [facility] Temperature Oral (F) 2019-01-27 17:00:00 98.5 F Memorial Yonis Heart Rate 2019-01-27 17:00:00 [facility] Respitory Rate 2019-01-27 [facility] Height 2019-01-22 14:35:00 157.48 cm [facility] Calculated 2019-01-22 14:35:00 [facility] Weight 2019-01-22 14:35:00 [facility] Weight 2019-01-22 04:34:00 [facility] Procedures Procedure Date / Time Performed Performing Clinician Sourc e URINALYSIS 2020-09-30 13:27:00 Chuy Jackson o f [facility] Branch ADC,CLC OR LCC ONLY - 2020-09-30 13:27:00 Chuy Jackson [facility] INFLUENZA A & B DIRECT Medical B ranch ANTIGEN COVID-19 (ID NOW RAPID 2020-09-30 13:27:00 Chuy Jackson [facility] TESTING) Medical Branch Encounters Start End Encounter Admission Attending Care Care Encounter Source Date/Time Date/Time Type Type Clinicians Facility Department ID 2021-09-07 Outpatient Humaira-Mbayo V[facility] [id number] [facility] 13:23:42 _A_AH [id number] Family Practic e 2021-09-06 Outpatient Bernadine [facility] [id number] [facility] 04:23:58 _A_AH [id number] Family Practic e 2021-09-05 [facility] [id number] [facility] 19:22:48 _A_AH [id number] Family Practic e 2019-01-[address] [facility] MED [id number] [facility] W 04:39:00 2020-09-30 2020-09-30 Emergency Jackson, [facility] [id number] 07:22:00 08:18:00 Chuy [place] [id number] [place] [id number] [place] [id number] [facility] 2020-09-30 2020-09-30 [facility] [id number] Univers 07:22:00 08:18:00 Chuy G[place]eton [id number] i ty of [place] [id number] [facility] [id number] [address] 2020-09-30 2020-09-30 Emergency X [facility] ERT [id number] Univers 07:22:00 07:22:00 CHUY tubbs [facility] [place] [facility] 2020-03-04 2020-03-14 Inpatient 3 ChenteJohnnie southRonni [facility] PS[facility] [id number] 15:38:00 15:25:00 [facility] 2019-[facility] 2019-01-28 Inpatient Count includes the [facility] [id number] Memoria 04:33:00 04:40:00 martin Somers 00 l [facility] 2018-02-21 2018-02-20 Inpatient E [facility] MED [id number] [address] 14:48:00 13:18:00 [facility] Results Test Description Test Time Test Comments Results Result Comments Source ADC,CLC OR LCC ONLY - INFLUENZA A & B DIRECT ANTIGEN 2020-09 14:04:00 Test Item Value Reference Range Interpretation Comme nts Influenza A (test code = 11994-9) Negative Negative Influenza B (test code = 95091-6) Negative Negative Lab Interpretation (test code = 27731-7) Normal [facility]ID NOW RAPID TESTING)2020-09-30 14:03:00 Test Item Value Reference Range Interpretation Comments SARS-CoV-2 Rapid ID NOW Not Detected Not Detected (test code = 51215-0) PERRY (test code = PERRY) ID NOW COVID-19 Assay is an isothermal nucleic acid amplification test intended for the qualitative detection of nucleic acid from SARS-CoV-2 viral RNA in nasopharyngeal (SKEIN SPOOLER) specimens. It is used under Emergency Use [...] indicated. Lab Interpretation Normal (test code = 36231-9) [facility]2020-12-07 13:55:00 Test Item Value Reference Range Interpretation Comments APPEARANCE (test code = Hazy Clear A 8391729813) COLOR (test code = Yellow Yellow 6125190975) PH (test code = 4.8-8.0 8821888034) SP GRAVITY (test code = 1.003-1.030 4659058744) GLU U QUAL (test code = Normal Normal 2764254141) BLOOD (test code = Negative Negative 9447900284) KETONES (test code = 5 mg/dL Negative A 8342181861) PROTEIN (test code = Negative Negative 2887-8) UROBILIN (test code = 2.0 mg/dL Normal A 7275961217) BILIRUBIN (test code = Negative Negative 1385529641) NITRITE (test code = Negative Negative 4354978865) LEUK ROZINA (test code = 25/uL Negative A 3893378724) RBC/HPF (test code = See_Comment [Autom ated message] 5990667800) The system Answer.To generated this result transmit ngozi reference range : 0 - 3 HPF. The refe rence range was not u sed to interpret th is result as normal/abnormal . WBC/HPF (test code = See_Comment [Autom ated message] 2213534193) The system Answer.To generated this result transmit ngozi reference range : 0 - 5 HPF. The refe rence range was not u sed to interpret th is result as normal/abnormal . BACTERIA (test code = Few Negative A 1311566299) MUCOUS (test code = Slight Negative LPF A 7958762000) SQ EPITH (test code = HPF 0862466849) Lab Interpretation (test Abnormal code = 23668-9) [facility] System[facility] Laxpjpcixqg6299-82-31 16:42:24 Test Item Value Reference Range Interpretation [...] = 10-24-2020 N Expiration Dt) Thyroid Stimulating Fwhtseg7515-50-72 08:35:16 Test Item Value Reference Range Interpretation Comments TSH (test code = TSH) 1.170 mIU/mL 0.270-4.200 Lipid Szlcw5676-21-69 08:21:19 Test Item Value Reference Range Interpretation [...] calculation is LDL/HDL Ratio=L DL Calc/HDL Chol XSOWFBSRVJNV8924-36-50 08:24:008.6[facility]orial HqspjclFLAMRWWRGANF0375-79-33 08:24:71096Cnzcgolt FiqlhwmTDEHLNJYAHPC1145-26-48 08:24:0027[facility] Yonis FLHAIPGYDDMW4552-06-82 08:24:37834Weojpflk IlatpiiGDIJRAHKICMN7551-18-31 08:24:003.6Memorial XxptjtfOUEWVEXUJVFH2094-49-86 08:24:000.70[facility] Yonis TTBIKWKBPVHO0473-33-50 08:24:008.4Memorial IaeggasQVEBMVWVOVWI6920-90-84 08:24:98559Zdkgpvkz BjyhpujSODNNZXTVRGV9506-09-66 08:24:0086[facility] Yonis LXAZEQOMSQNQ2044-52-03 08:24:006[facility]orial DypbiyqYBNANOUEWS9568-64-86 08:24:00 11.6Memorial DlaykbnLAKOOOPUBO5519-00-80 08:24:003.78[facility]annHEMATOLOGY 2019-01-26 08:24:0013.3[facility]orial CsdeqxqTLCJOBTDBB6524-79-55 08:24:0034.0[facility]orial GwmghyqDXANBTPGHQ3447-85-61 08:24:006.3[facility]orial RwgnctzHNTRCPJPCP1504-50-12 08:24:00 Test Item Value Reference Range Interpretation Comments MCH (test code = MCH) 30.7 pg 27.0-31.0 Memorial LzmnpvjSFATSXACIU7605-84-64 08:24:0090.3[facility] HermannHEMATOLOGY 2019-01-26 08:24:0034.2[facility]orial NxtgznmHZBXWYDAFX7615-98-82 08:24:19728Rkaczgrt PmpgbrwJWGHOPLNSI1288-09-32 08:24:007.5[facility]orial FssyhrmBFJSIRUGXOVN3395-41-02 08:24:008.6[facility]orial AohwdmfLSIGRDSMLUEE1342-48-10 08:24:34865Ljwdgfsn Yonis BKVPOXCYNHUL4175-92-53 08:24:0027[facility] HkckexxKPQWVONJRHIH3747-79-66 08:24:00 139[facility]orial UlwrqkwDTOJOEVLHBJN7244-32-24 08:24:003.6[facility] Yonis GPUZVRWEPYJK9158-94-88 08:24:000.70[facility]orial ElrgzusSOEJBUFVDAOR1137-22-83 08:24:008.4Memorial KvcygndINLYGXHSXIVX9744-38-18 08:24:89300Bpehfxns Yonis ASLXPOSQSWCM0197-18-73 08:24:0086Memorial MkbzuybSVWZVICLNUQT2654-52-51 08:24:00 6Memorial IsrfujaYJYBWOHOSP6526-00-19 08:24:0011.6[facility] HermannHEMATOLOGY 2019-01-26 08:24:003.78Memorial LvuriqeGXCIZGVELM1700-51-99 08:24:0013.3Memorial BtgkvvbUCPHJCVYYM4568-34-72 08:24:0034.0Memorial BdsnemxBLAGREXUYS3324-21-52 08:24:006.3[facility]orial WdwdzfcPSDCXQYYWE6147-52-44 08:24:00 Test Item Value Reference Range Interpretation Comments MCH (test code = MCH) 30.7 pg 27.0-31.0 Memorial VwfbdszISHECCNWYP3711-36-60 08:24:0090.3[facility] HermannHEMATOLOGY 2019-01-26 08:24:0034.2Memorial RnibkplFGGNPYRTGN3706-56-71 08:24:20956Qdfqolub VraadilYUEIATPRDA4768-91-49 08:24:007.5[facility] HermannCHEM XLLJT5224-80-53 09:14:70854Dpcfukbj HermannCHEM GWBAN7157-58-13 09:14:008.5[facility] HermannCHEM WFGCM1269-78-14 09:14:0013.3[facility] HermannCHEM XSKPW8229-12-08 09:14:0024 [facility] HermannCHEM SMAYE7064-92-40 09:14:38723Nlqnqine HermannCHEM PANEL 2019-01-25 09:14:0081[facility] HermannCHEM LTGOG5798-72-10 09:14:002[facility] HermannCHEM AQQYD7029-52-55 09:14:003.3[facility] HermannCHEM PUEIH0495-42-41 09:14:000.60[facility] HermannCHEM EHTTF6814-63-66 09:14:79226Teobbnyj HermannCHEM EOLNZ0594-43-89 09:14:35726Epzfuurd HermannCHEM CAYYB8319-12-15 09:14:008.5 [facility] HermannCHEM OGLLA8981-51-47 09:14:0013.3[facility] HermannCHEM PANEL 2019-01-25 09:14:0024Mem[facility] HermannCHEM YPEFZ1228-17-79 09:14:62076Qdhrfgcg HermannCHEM WRWTG9654-25-14 09:14:0081[facility] HermannCHEM NUGHJ9431-60-48 09:14:002[facility] HermannCHEM QEFII5202-78-08 09:14:003.3[facility] HermannCHEM QSNZK1921-38-21 09:14:000.60[facility]annCHEM [id number] 09:14:51314 [facility]annMOLECULAR [id number] 16:22:00Negative (01/23/19 11:22 AM)[facility]annMOLECULAR [id number] 16:22:00Negative (01/23/19 11:22 AM)[facility]annCHEM [id number] 15:42:002.76[facility] HermannCHEM PANEL 2019-01-23 15:42:002.76[facility]annCHEM [id number] 12:32:000.9[facility]annCHEM [id number] 12:32:000.9[facility] HermannCHEM [id number] 10:50:002.0[facility]annCHEM [id number] 10:50:50061Polfalku HermannCHEM [id number] 10:50:0023[facility]annCHEM VOYWR0759-05-94 10:50:33899 [facility]ann[facility] UYYER2615-52-18 10:50:003.1[facility]annCHEM PANEL 2019-01-23 10:50:34503Zxnnhwkd HermannCHEM PIGFQ8524-30-01 10:50:005[facility]annCHEM DXASD7650-26-71 10:50:000.50[facility]annCHEM VTYBX1883-60-24 10:50:007.8[facility]annCHEM LYRDB4394-87-20 10:50:0083[facility]annCHEM KTITQ5025-82-52 10:50:0010.1[facility] VkskfjjHEOAFCVSER8467-92-37 10:50:000.2 [facility] OisttipPKFJJUGWYE3746-54-43 10:50:000.8[facility] HermannHEMATOLOGY 2019-01-23 10:50:005.5[facility] VrjjqsuMHHNKQGYYJ6655-05-18 10:50:002.2[facility] MenwjsyCQAODMJXAO2613-86-59 10:50:000.1[facility] JupwyttYFQAARNRXS2417-54-95 10:50:0063.6[facility] VqrmplaMAMICECQGS9949-57-28 10:50:008.9[facility] GAGSXITPRO6705-82-31 10:50:002.3[facility] GwkzxwrMHADUOIAYD4790-46-66 10:50:00 Normal (01/23/19 5:50 AM)[facility] VzmuusmAEUGRMIUIB4719-08-67 10:50:00Normal (01/23/19 5:50 AM)[facility] BmuyqwsXZFQIAIAYP3343-23-81 10:50:0025.1[facility] BoftsdkZTDQCGGCLN0067-20-88 10:50:0013.1[facility] DnrbwapQDGWAFLBIS8995-60-62 10:50:19949Jekeznwj UzqffsyIQYLNPXWWK6319-01-57 10:50:007.7[facility] KGKKFLJUGN2170-28-35 10:50:008.6[facility] ZblfnlvVRVCTQOTOF8401-45-02 10:50:00 10.0[facility] HepfhnuTFUUZNRADD6437-86-37 10:50:0034.6[facility] HermannHEMATOLOGY 2019-01-23 10:50:0028.7[facility] UvgvbyeUWVRWZDBTX8380-54-25 10:50:0087.8[facility] TsfzsnmWZGVNMFBUQ5393-23-52 10:50:00 Test Item Value Reference Range Interpretation Comments MCH (test code = MCH) 30.4 pg 27.0-31.0 [facility] UjqpirmODDUMGHKGJ7646-16-86 10:50:003.27[facility]annCHEM PANEL 2019-01-23 10:50:002.0[facility]annCHEM GPDEI9437-94-84 10:50:61918Xdgdkloq HermannCHEM MJKFM6068-75-48 10:50:0023[facility]annCHEM CXHOZ7342-07-91 10:50:78521Gxecaxdg HermannCHEM YWFWE3167-73-88 10:50:003.1[facility]annCHEM HYRBY0736-14-03 10:50:39602Lchjynje HermannCHEM FFUAF6823-84-77 10:50:005 [facility]annCHE[facility] TMHTY5118-80-12 10:50:000.50[facility]annCHEM PANEL 2019-01-23 10:50:007.8[facility]annCHEM HEPUJ4515-20-82 10:50:0083[facility]annCHEM AICLC3977-80-41 10:50:0010.1[facility] AeljmgkEIXKUBCYBS0376-62-11 10:50:000.2[facility] KbrnxksHFWKCQCWQZ7691-06-82 10:50:000.8[facility] GMPPAGWNVW9076-25-16 10:50:005.5[facility] GtvulymJCSTWYINIU8806-67-95 10:50:002.2 [facility] QyfozdwUGNVEDUYCU0843-39-20 10:50:000.1[facility]annHEMATOLOGY 2019-01-23 10:50:0063.6[facility] JdstvvoFRNXANPRWL8169-25-21 10:50:008.9[facility] JhchdtnLIDSIWYEFF1521-26-56 10:50:002.3[facility] DkbvwjiXAJTJYMFFB5814-45-64 10:50:00Normal (01/23/19 5:50 AM)[facility] XdcqovbNQCQMUHBZN8349-23-94 10:50:00 Normal (01/23/19 5:50 AM)[facility] SgmjjriUQNRIATCDM0730-27-33 10:50:0025.1[facility] DvbbysxGFLMCWNELL3548-98-15 10:50:0013.1[facility] IcgpiqkTRJWVLYQUR5274-01-78 10:50:12861Hjmjfrdc VrjqfqpGLFEAVFWGC1467-21-38 10:50:007.7[facility] MYKEHXNZHH5507-88-53 10:50:008.6[facility] WzhekokBWYNYIMTZJ8558-97-47 10:50:00 10.0[facility] SejfpfhNIKWMKGWEV7710-70-44 10:50:0034.6[facility]annHEMATOLOGY 2019-01-23 10:50:0028.7[facility] EeymwesSRUGASCSMM7697-88-20 10:50:0087.8[facility] UecpndzHRYSQTVXEM4949-02-22 10:50:00 Test Item Value Reference Range Interpretation Comments MCH (test code = MCH) 30.4 pg 27.0-31.0 [facility] HqthaufLPARMTJHGJ5514-04-51 10:50:003.27[facility]annCHEM PANEL 2019-01-22 11:32:002.4[facility]annCHEM DTHHB0253-67-60 11:32:002.4[facility]annCHEM WJULQ3184-33-85 09:04:003.0[facility]annCHEM CJINX2324-99-20 09:04:003.0[facility]URINE AND VZYAX2584-01-48 07:14:00Negative (01/22/19 2:14 AM)[facility] OEPLN6513-15-02 07:14:00Negative (01/22/19 2:14 AM)[facility] HBRJE8818-85-39 07:14:00Negative (01/22/19 2:14 AM) [facility] MBPHE6762-78-68 07:14:00<1[facility] AKWDB1619-47-01 07:14:0025[facility] AND YNBPZ9793-46-23 07:14:002 [facility] AFWVT8047-11-17 07:14:00Light Yellow *NA*(01/22/19 2:14 AM)[facility] LMNME3143-54-24 07:14:00Clear (01/22/19 2:14 AM) [facility] OYBAX6714-43-07 07:14:00 Test Item Value Reference Range Interpretation Comments UA Spec Grav (test code = UA Spec 1.014 1 Grav) [facility] UHNUY0753-74-90 07:14:00 Test Item Value Reference Range Interpretation Comments UA pH (test code = UA pH) 6.0 1 5.0-8.0 [facility] YBSBG5434-49-87 07:14:00Negative (01/22/19 2:14 AM) [facility] VTAKA5907-81-68 07:14:00Negative *NA*(01/22/19 2:14 AM) [facility] GOMBD0579-90-98 07:14:00Negative *NA*(01/22/19 2:14 AM) [facility] MPXQF9633-16-58 07:14:00Negative *NA*(01/22/19 2:14 AM) [facility] WKJEI8469-10-36 07:14:00Negative (01/22/19 2:14 AM) [facility] EVKGW3415-51-18 07:14:00Negative (01/22/19 2:14 AM) [facility] USWGG7834-61-47 07:14:00Negative (01/22/19 2:14 AM) [facility] RFARC8453-38-53 07:14:00<1[facility] TYKJS7489-57-27 07:14:0025[facility] WUMEW2609-26-60 07:14:002 [facility] SKQMP4870-67-78 07:14:00Light Yellow *NA*(01/22/19 2:14 AM)[facility] LFRFB5525-86-08 07:14:00Clear (01/22/19 2:14 AM) [facility] JDDNS4456-65-82 07:14:00 Test Item Value Reference Range Interpretation Comments UA Spec Grav (test code = UA Spec 1.014 1 Grav) [facility] NIZNY6199-93-30 07:14:00 Test Item Value Reference Range Interpretation Comments UA pH (test code = UA pH) 6.0 1 5.0-8.0 [facility] AVAVY9180-00-82 07:14:00Negative (01/22/19 2:14 AM) [facility] ERZSF1887-12-23 07:14:00Negative *NA*(01/22/19 2:14 AM) [facility] IYRTN3108-34-55 07:14:00Negative *NA*(01/22/19 2:14 AM) [facility] OGYMV6176-18-19 07:14:00Negative *NA*(01/22/19 2:14 AM) [facility] UnzanowYRXVB5791-91-73 05:16:000.90[facility] WmwfpjtDNNQG2630-35-95 05:16:000.90[facility]annBLOOD BANK CNEUZFV8355-08-79 05:01:00Negative (01/22/19 12:01 AM)[facility] HermannCARDIAC FRSYQUA0556-00-19 05:01:00<0.02 [facility]annCARDIAC LNETLLO2075-08-83 05:01:0049[facility]annCHEM PANEL 2019-01-22 05:01:000.6[facility]annCHEM VJNXB2554-66-60 05:01:22335Ypdxrkfa HermannCHEM SIWQJ2820-12-81 05:01:004.0[facility]annCHEM HFMGX4812-81-02 05:01:0017[facility]annCHEM SJQVW0936-43-34 05:01:0025[facility]annCHEM ANZBE0453-55-61 05:01:008.1[facility]annCHEM OOLPB3542-24-15 05:01:00 Test Item Value Reference Range Interpretation Comments B/C Ratio (test code = B/C Ratio) 20 1 6-25 [facility]CHE[facility] EXPMJ3557-09-60 05:01:00 Test Item Value Reference Range Interpretation Comments A/G Ratio (test code = A/G Ratio) 1.0 1 0.7-1.6 [facility]CHE[facility] PUWAS8621-17-01 05:01:004.1[facility]annCHEM PANEL 2019-01-22 05:01:006.90[facility] AgyahpgHZPRBJMNBKARZ5382-38-72 05:01:00Negative *NA*(01/22/19 12:01 AM)[facility] BroahnrBJVXXUXQNL3732-38-73 05:01:000.1[facility] BasgebaZLMOFQKOVO7339-41-12 05:01:000.7[facility] SsgnzzcFFRHLYQIPX5968-22-18 05:01:000.0[facility] XhzyjwiYYPWEGMYBT1389-29-35 05:01:000.0[facility] EFNFYCCQNN7902-08-53 05:01:000.9[facility] SpodljkCWPHNTUSSF4717-47-12 05:01:008.6 [facility] RfwxyftWJFOMSCDEP8016-98-52 05:01:000.6[facility] HermannHEMATOLOGY 2019-01-22 05:01:0086.5[facility] BdqtrhiXUUVPAGXOG8869-40-65 05:01:005.7[facility] XehyjrmOYKPGVYCKE9817-94-98 05:01:006.9[facility] CpdwwkyROXGGIHMZO1225-06-52 05:01:009.9[facility] LxxcbenMWBLQMLALI3114-16-99 05:01:0032.8[facility] TSNQPIRAPI3649-82-74 05:01:0013.6[facility] IvfzygtHSJADKOJML4294-12-45 05:01:00 443[facility] RzjargjYAXQKVTTJV8910-46-77 05:01:007.3[facility] HermannHEMATOLOGY 2019-01-22 05:01:0014.0[facility] CmehkcbQOKWPMSKTI2183-96-58 05:01:004.85[facility] QrkgzoeQISWGCTGXI4039-24-25 05:01:0042.7[facility] SxxyqtpUKFHKQHVSQ2869-90-53 05:01:00 Test Item Value Reference Range Interpretation Comments MCH (test code = MCH) 29.0 pg 27.0-31.0 [facility] GzidqpyGQWGMVSWBW7140-96-65 05:01:0088.2[facility]annHEMATOLOGY 2019-01-22 05:01:00 Test Item Value Reference Range Interpretation Comments INR (test code = INR) 0.96 1 0.85-1.17 [facility]JpkwludLZYXOVGBOT5467-67-68 05:01:00 Test Item Value Reference Range Interpretation Comments PT (test code = PT) 12.6 s 12.0-14.7 [facility]wayRlnzrueEUYOHHUOGV1438-57-87 05:01:00 Test Item Value Reference Range Interpretation Comments PTT (test code = PTT) 25.9 s 22.9-35.8 [facility] VSQZMSY3847-82-69 05:01:00Negative (01/22/19 12:01 AM) [facility] HermannCARDIAC SMCFDDA0040-47-14 05:01:00<0.02[facility] CARDIAC NIWNWRQ5258-34-65 05:01:0049[facility] HermannCHEM QRFJD6483-69-92 05:01:000.6[facility] HermannCHEM UKWTY9614-86-47 05:01:12149Sorjrnnr HermannCHEM IHIKF1296-05-47 05:01:004.0[facility] HermannCHEM MJIHJ4676-95-63 05:01:0017 [facility]annCHEM FTPPH9794-39-10 05:01:0025[facility]annCHEM PANEL 2019-01-22 05:01:008.1[facility]annCHEM LQPIX8215-24-70 05:01:00 Test Item Value Reference Range Interpretation Comments B/C Ratio (test code = B/C Ratio) 20 1 6-25 [facility]annCHEM TNVOL8711-02-35 05:01:00 Test Item Value Reference Range Interpretation Comments A/G Ratio (test code = A/G Ratio) 1.0 1 0.7-1.6 [facility]annCHEM CFVTK7980-43-90 05:01:004.1[facility]annCHEM PANEL 2019-01-22 05:01:006.90[facility] EoavwvsQMGMMZESACLJL0232-26-85 05:01:00Negative *NA*(01/22/19 12:01 AM)[facility] TttxbfvSPUXMMEAFJ2588-79-85 05:01:000.1[facility] TjegvspIROALSMNNP2151-96-28 05:01:000.7[facility] VtlcwlxPJNZPKNBNX4627-43-59 05:01:000.0[facility] YoajtiiXZRMLHSOAV5169-19-67 05:01:000.0[facility] YVSLKIXVDS5525-45-56 05:01:000.9[facility] OmgvslpNSKYOZKXIA4223-93-74 05:01:008.6 [facility] SvjnpgbEUBQSHUBKM8574-09-20 05:01:000.6[facility] HermannHEMATOLOGY 2019-01-22 05:01:0086.5[facility] SmojektLMBEUURAIY7120-77-36 05:01:005.7[facility] WrmpgscLWALGEPOCY7626-08-49 05:01:006.9[facility] NfrvlivHHVMKMODUD9749-55-60 05:01:009.9[facility] TkleqstQOHPMAKOXT4818-11-62 05:01:0032.8[facility] GFTSXZQQQL5395-08-38 05:01:0013.6[facility] JjrdnnlLHHWNBPKPA0546-51-27 05:01:00 443[facility] QenkxpyCSAJYHNTCU6830-21-55 05:01:007.3[facility]annHEMATOLOGY 2019-01-22 05:01:0014.0[facility] AuxofbcJIMXPUTSZZ7992-51-97 05:01:004.85[facility] QidsfycTPGQPHGKZA4340-66-02 05:01:0042.7[facility] FzjwgymFCCODHDQOP6525-22-28 05:01:00 Test Item Value Reference Range Interpretation Comments MCH (test code = MCH) 29.0 pg 27.0-31.0 [facility] EphpghsOEEBGONXWP1326-83-17 05:01:0088.2[facility] HermannHEMATOLOGY 2019-01-22 05:01:00 Test Item Value Reference Range Interpretation Comments INR (test code = INR) 0.96 1 0.85-1.17 [facility] QckzlniTGNKVSASZW4538-06-49 05:01:00 Test Item Value Reference Range Interpretation Comments PT (test code = PT) 12.6 s 12.0-14.7 [facility]atgDWEQYBDRTM7775-17-65 05:01:00 Test Item Value Reference Range Interpretation Comments PTT (test code = PTT) 25.9 s 22.9-35.8 [facility]R0767[facility]-59 14:36:00 Test Item Value Reference Range Interpretation [...] 0.00-0.01 N code = ETOHU) Comprehensive Metabolic Ftqgv0385-83-17 14:36:00 Test Item Value Reference Range Interpretation [...] the National Kid[employer] Foundation,http ://nkd ep.nih.gov Urinalysis Nbzcjceg6565-61-86 14:32:00 Test Item Value Reference Range Interpretation Comments Color (test code = COLOR) Yellow Yellow,Straw,Pl N yellow Clarity (test code = Clear Clear N CLAR) Specific [place] (test 1.024 1.001-1.035 N code = SPGR) [...] code = Few /HPF BACT) CBC with Qagzzlqfbexx5178-76-79 14:21:00 Test Item Value Reference Range Interpretation [...] code = ALYMPH) 3.0 K/cumm 0.5-4.6 N [place] Abs (test code = AMONO) 0.5 K/cumm 0.0-1.2 N Eos Abs (test code = AEOS) 0.19 K/cumm 0.00-0.74 N Baso Abs (test code = ABASO) 0.1 K/cumm 0.00-0.21 N
--- NOTE | 2021-09-08 00:07 | EDPHYS ---
Physician Documentation [facility] Name: Tiffany Quinn Age: 51 yrs Sex: Female : 1970 Arrival Date: 09/07/2021 Time: 20:58 Bed 7 Private MD: ED Physician James Eric HPI: 09/07 23:15 This 51 yrs old Female presents to ER via Ambulatory with complaints of High ma2 Blood Pressure. 23:15 The patient has elevated blood pressure and discovered this at home. Onset: The ma2 symptoms/episode began/occurred gradually, 5 month(s) ago. Associated signs and symptoms: Pertinent negatives: chest pain, dizziness, dyspnea, headache, lightheadedness, nausea, vomiting, weakness. Severity of symptoms: At its worst the blood pressure was mild, in the emergency department the blood pressure is unchanged. The patient has experienced similar episodes in the past. has anxiety. Historical: - Allergies: 22:00 Haldol; vg1 22:00 Pepcid; vg1 22:00 Toradol; vg1 - Home Meds: 22:00 lithium carbonate 300 mg Oral tab 1 cap 3 times per day [Active]; vg1 - PMHx: 22:00 Anxiety; Bipolar disorder; vg1 - PSHx: 22:00 breast augmentation; Cholecystectomy; hernia repair; vg1 - Immunization history:: Client reports receiving the 2nd dose of the Covid vaccine. - Social history:: Smoking status: Patient denies any tobacco usage or history of. Patient uses street drugs, Methamphetamine (Meth) Patient/guardian denies using alcohol, Patient/guardian denies using street drugs, The patient lives with family. - Family history:: not pertinent. ROS: 23:15 Constitutional: Negative for fever, chills, and weight loss. ma2 23:15 All other systems are negative. Exam: 23:15 Constitutional: This is a well developed, well nourished patient who is awake, alert, ma2 and in no acute distress. Head/Face: Normocephalic, atraumatic. Eyes: Pupils equal round and reactive to light, extra-ocular motions intact. Lids and lashes normal. Conjunctiva and sclera are non-icteric and not injected. Cornea within normal limits. Periorbital areas with no swelling, redness, or edema. ENT: Nares patent. No nasal discharge, no septal abnormalities noted. Tympanic membranes are normal and external auditory canals are clear. Oropharynx with no redness, swelling, or masses, exudates, or evidence of obstruction, uvula midline. Mucous membranes moist. Neck: Trachea midline, no thyromegaly or masses palpated, and no cervical lymphadenopathy. Supple, full range of motion without nuchal rigidity, or vertebral point tenderness. No Meningismus. Chest/axilla: Normal chest wall appearance and motion. Nontender with no deformity. No lesions are appreciated. Cardiovascular: Regular rate and rhythm with a normal S1 and S2. No gallops, murmurs, or rubs. Normal PMI, no JVD. No pulse deficits. Respiratory: Lungs have equal breath sounds bilaterally, clear to auscultation and percussion. No rales, rhonchi or wheezes noted. No increased work of breathing, no retractions or nasal flaring. Abdomen/GI: Soft, non-tender, with normal bowel sounds. No distension or tympany. No guarding or rebound. No evidence of tenderness throughout. Back: No spinal tenderness. No costovertebral tenderness. Full range of motion. Skin: Warm, dry with normal turgor. Normal color with no rashes, no lesions, and no evidence of cellulitis. MS/ Extremity: Pulses equal, no cyanosis. Neurovascular intact. Full, normal range of motion. Neuro: Awake and alert, GCS 15, oriented to person, place, time, and situation. Cranial nerves II-XII grossly intact. Motor strength 5/5 in all extremities. Sensory grossly intact. Cerebellar exam normal. Normal gait. 23:15 Psych: Behavior/mood is anxious, Affect is animated, Oriented to person, place, time, Patient has no thoughts/intents to harm self or others. Judgement / Insight is normal. Vital Signs: 21:58 BP 134 / 112; Pulse 105; Resp 20; Temp 99.4; Pulse Ox 100% ; Weight 84.82 kg; Height 5 vg1 ft. 1 in. (154.94 cm); Pain 8/10; 09/08 00:05 BP 165 / 98; Pulse 104; Resp 20; Temp 99.3; Pulse Ox 100% ; Pain 0/10; bs2 09/07 21:58 Body Mass Index 35.33 (84.82 kg, 154.94 cm) vg1 MDM: 09/07 23:21 Differential diagnosis: Essential hypertension, versus anxiety, versus hallucinations, ma2 in the setting of meth use. Likely dehydration as well. 09/08 00:05 Data reviewed: vital signs, nurses notes. Counseling: I had a detailed discussion with ma2 the patient and/or guardian regarding: the historical points, exam findings, and any diagnostic results supporting the discharge/admit diagnosis, the presence of at least one elevated blood pressure reading (>120/80) during this emergency department visit, the need for outpatient follow up. Response to treatment: the patient's symptoms have markedly improved after treatment. 00:06 Patient medically screened. ma2 Administered Medications: 00:15 Drug: Ativan (LORazepam) 1 mg Route: PO; bs2 Disposition Summary: 09/08/21 00:06 Discharge Ordered Location: Home ma2 Condition: Stable ma2 Diagnosis - Other specified anxiety disorders - METH USE, hypertension ma2 Followup: ma2 - With: Private Physician - When: Tomorrow - Reason: Continuance of care Discharge Instructions: - Discharge Summary Sheet ma2 - Managing Anxiety, Adult ma2 Forms: - Medication Reconciliation Form ma2 - Thank You Letter ma2 - Antibiotic Education ma2 - Prescription Opioid Use ma2 Signatures: James Eric MD MD ma2 Ibeth Charles, RN RN vg1 Carolee Andre RN RN bs2
--- NOTE | 2021-09-08 00:07 | ER ---
Nurse's Notes [facility] Name: Tiffany Quinn Age: 51 yrs Sex: Female : 1970 Arrival Date: 09/07/2021 Time: 20:58 Bed 7 Private MD: Diagnosis: Other specified anxiety disorders-METH USE, hypertension Presentation: 09/07 21:58 Chief complaint: Patient states: " I can feel that my blood pressure is high." Pt vg1 states nausea, headache and chest tightness. Denies vomiting or diarrhea. Coronavirus screen: Vaccine status: Patient reports receiving the 2nd dose of the covid vaccine. Ebola Screen: Patient negative for fever greater than or equal to 101.5 degrees Fahrenheit, and additional compatible Ebola Virus Disease symptoms. Initial Sepsis Screen: Does the patient meet any 2 criteria? HR > 90 bpm. Does the patient have a suspected source of infection? No. Patient's initial sepsis screen is negative. Risk Assessment: Do you want to hurt yourself or someone else? Patient reports no desire to harm self or others. Onset of symptoms was September 07, 2021. 21:58 Method Of Arrival: Ambulatory vg1 21:58 Acuity: MANUEL 3 vg1 Triage Assessment: 22:00 General: Appears in no apparent distress. uncomfortable, Behavior is cooperative, vg1 anxious. Pain: Complains of pain in chest. Neuro: Level of Consciousness is awake, alert, obeys commands, Oriented to person, place, time, situation. Historical: - Allergies: 22:00 Haldol; vg1 22:00 Pepcid; vg1 22:00 Toradol; vg1 - Home Meds: 22:00 lithium carbonate 300 mg Oral tab 1 cap 3 times per day [Active]; vg1 - PMHx: 22:00 Anxiety; Bipolar disorder; vg1 - PSHx: 22:00 breast augmentation; Cholecystectomy; hernia repair; vg1 - Immunization history:: Client reports receiving the 2nd dose of the Covid vaccine. - Social history:: Smoking status: Patient denies any tobacco usage or history of. Patient uses street drugs, Methamphetamine (Meth) Patient/guardian denies using alcohol, Patient/guardian denies using street drugs, The patient lives with family. - Family history:: not pertinent. Screenin/15 00:05 Abuse screen: Denies threats or abuse. Denies injuries from another. Nutritional bs2 screening: No deficits noted. Tuberculosis screening: No symptoms or risk factors identified. Fall Risk None identified. Assessment: 00:05 General: Appears in no apparent distress. comfortable, obese, unkempt, Behavior is bs2 anxious, restless. Pain: Denies pain. Neuro: No deficits noted. Cardiovascular: No deficits noted. Respiratory: No deficits noted. GI: No signs and/or symptoms were reported involving the gastrointestinal system. : No signs and/or symptoms were reported regarding the genitourinary system. EENT: No signs and/or symptoms were reported regarding the EENT system. Derm: No signs and/or symptoms reported regarding the dermatologic system. Vital Signs: 09/07 21:58 BP 134 / 112; Pulse 105; Resp 20; Temp 99.4; Pulse Ox 100% ; Weight 84.82 kg; Height 5 vg1 ft. 1 in. (154.94 cm); Pain 8/10; 09/08 00:05 BP 165 / 98; Pulse 104; Resp 20; Temp 99.3; Pulse Ox 100% ; Pain 0/10; bs2 09/07 21:58 Body Mass Index 35.33 (84.82 kg, 154.94 cm) vg1 ED Course: 09/07 20:58 Patient arrived in ED. ja2 22:00 Triage completed. vg1 22:00 Arm band placed on. vg1 23:12 James Eric MD is Attending Physician. ma2 09/08 00:05 Carolee Andre, RN is Primary Nurse. bs2 00:05 Patient has correct armband on for positive identification. Bed in low position. Call bs2 light in reach. 00:05 No provider procedures requiring assistance completed. Patient did not have IV access bs2 during this emergency room visit. Administered Medications: :15 Drug: Ativan (LORazepam) 1 mg Route: PO; bs2 Outcome: 00:05 Discharged to home ambulatory. bs2 00:05 Condition: stable 00:05 Discharge instructions given to patient, Instructed on discharge instructions, follow up and referral plans. both doctor and myself had extensive conversation with patient about following up with PCP and about pt filling medications that she was given on Wednesday for anxiety. Pt states she has not filled the script. When asked about her PCP, pt states she feels like her PCP "does not want her in his office anymore" Pt was asked about a detox/rehab facility to which pt replied that she would like to go, but just hasn't. 00:06 Discharge ordered by MD. vazquez 00:15 Patient left the ED. bs2 Signatures: James Eric MD MD ma2 Ibeth Charles RN RN vg1 Carolee Andre RN RN bs2 Niya Rodriguez
[2021-09-08] MEDS ORDERED: LORAZEPAM 1 MG TABLET ONE (00:11)
[2021-09-08 02:35] VITALS: BP 165/98; TEMP 99.3; O2SAT 100
== END 2021-09-08 00:15 | disposition home or self-care (01) ==
LOC: ER 20:40
DX: I10 Essential (primary) hypertension (principal); F15.10 Other stimulant abuse, uncomplicated; F31.9 Bipolar disorder, unspecified; Z88.5 Allergy status to narcotic agent; Z88.8 Allergy status to other drugs, medicaments and biological substances; Z98.82 Breast implant status
CPT/HCPCS: 93005; 99283

== ENCOUNTER 2021-09-08 19:47 | Emergency (ER) | payer OTHER ==
--- OUTSIDE RECORDS SUMMARY | 2021-09-08 19:52 | XMS REPORT | Continuity of Care Document ---
:1970 Author Organization [facility] t Address [address] [place] [address] Care Team Providers Name Role Phone UNKNOWN Primary Care Physician Unavailable Humaira-Mbayo_A_AH Attending Clinician Unavailable Jackson DO Attending Clinician JACKSON Attending Clinician Unavailable Chente Attending Clinician Unavailable Chente Attending Clinician Unavailable AFUWAPE Attending Clinician Unavailable Humaira-Mbayo_A_AH Admitting Clinician Unavailable Chente Admitting Clinician Unavailable AFUWAPE Admitting Clinician Unavailable Payers Payer Name Policy Type Policy Number Effective Date Expiration Date S [facility] [place] - [id number] 2020 [employer] 00:00:00 (MEDICARE REPLACEMENT/ADVANT AGE - HMO) Problems Condition Condition Condition Status Onset Resolution Last Treating Co mments Source Name Details Category Date Date Treatment Clinician Date LOW PB Diagnosis Active 2019-01-22 Mem oria 01-21 01:52:00 l LOW PB 00:00: [place] 00 Active 01/21/2019 [place] INFECTIOUS Diagnosis Active 2019-02-06 Memoria GASTROENTE 01-21 08:58:00 l RITIS AND 00:00: [place] COLITIS INFECTIOUS 00 GASTROENTE RITIS AND COLITIS Active 01/21/2019 [facility] Irregular Irregular Disease Active Uni vers menstrual menstrual 8-15 ity of cycle cycle 00:00: [address] Skin Skin Disease Active Univers lesion lesion 8-15 ity of 00:00: [address] Psychiatri Psychiatri Disease Active U nivers c disorder c disorder 8-15 it y of 00:00: [place] 00 Medical Branch Well woman Well woman Disease Active U nivers exam with exam with 8-15 ity of routine routine 00:00: [place] gynecologi gynecologi 00 Me dical nicky exam nicky exam Branch INFECTIOUS Diagnosis Active 2019-02-06 Memoria GASTROENTE 08:58:00 l RITIS AND Yonis COLITIS, INFECTIOUS GASTROENTE RITIS AND COLITIS, Active [facility] Allergies, Adverse Reactions, Alerts Allergy Allergy Status Severity Reaction(s) Onset Inactive Treating Comm ents Source Name Type Date Date Clinician NO KNOWN Drug Active Univers ALLERGIE Class ity of S [facility] Phenerga Phenerga Active Memori a n n l [place] Social History Social Habit Start Date Stop Date Quantity Comments Source History of Cigarette Smoker [facility] ty of tobacco use [facility] Tobacco Comment 2-3 cigs a day [facility] Sex Assigned At [facility] y of [facility] Exposure to Not sure [facility] SARS-CoV-2 [facility] (event) Branch Tobacco use and 2016-06-08 2016-06-08 Never used [facility] y of exposure 00:00:00 00:00:00 [facility] Alcohol intake 2016-06-08 2016-06-08 Current University 00:00:00 00:00:00 non-drinker of [facility] alcohol (finding) Branch Smoking Status Start Date Stop Date Source Social History 2019-01-22 05:00:12 Jeanne urena Current some day smoker 2016-06-08 00:00:00 [facility] Medications Ordered Filled Start Stop [...] 4 mg 0830, Routine ondansetron 2019-10 Yes [id number] 4mg Take 1 Univers 4 mg 2-07 tablet by ity of disintegrat 00:00: mouth [place] ing tablet 00 every 8 Medica l (eight) Branch hours as needed for Nausea and Vomiting (N/V). ciprofloxac 2019- Yes 500 mg = 1 Memoria in 500 mg 4-04 tab, PO, l oral tablet 17:35: [id number], X Yonis 00 4 day, # 8 [...] 4-04 tab, PO, l oral tablet 17:35: [id number], X Yonis 00 4 day, # 8 [...] s with feeding tube less than 14 Vincentian (Dobhoff, J-tube etc) and pediatric and patients. [...] s with feeding tube less than 14 Vincentian (Dobhoff, J-tube etc) and pediatric and patients. [...] chew. Yonis 00 (Same as: Eskalith-C R) lithium 0 [...] Memoria 01-23 (Same as: l 15:00: Flagyl) Yonsi 00 Take with food/ avoid alcohol Cipro [...] MG 401 PO, l Oral Tablet 14:20: [id number], 0 [place] [Cipro] 00 Refill(s) potassium Yes 40 mEq, Memor ia chloride 20 4-01 PO, ONCE, l mEq oral 14:20: 0 [place] tablet, 00 Refill(s) extended release Metronidazo No 500 mg, Mem oria le 500 MG 4-01 PO, l Oral Tablet 14:20: ABXQ8H, 0 [facility] [Flagyl] 00 Refill(s) Ciprofloxac No 500 mg, Mem oria in 500 MG 4-01 PO, l Oral Tablet 14:20: [id number], 0 Y[place] [Cipro] 00 Refill(s) Potassium 2019 No Notes: Memori a Chloride 4-01 (Same as: l 14:17: K-Dur 20) [place] 00 "Do Not Crush" Give with food and full glass of water For patients unable to swallow tablet, dissolve in one half glass of water. Allow about 2 minutes for the tablets to disintegra te. Stir before giving to prepare slurry and administer . Please exclude Patient s with feeding tube less than 14 Vincentian (Dobhoff, J-tube etc) and pediatric and patients. [...] s with feeding tube less than 14 Vincentian (Dobhoff, J-tube etc) and pediatric and patients. [...] tab, PO, l Tablet 21:08: BID, 0 [place] [Risperdal] 00 Refill(s) Zosyn No Notes: Memoria [...] 01-22 Route: IM, l 09:47: Drug form: [place] 00 PDR/INJ, PRN, Dosing Weight 75.994, kg, PRN Blood Glucose Results, Start date: 01/22/19 4:47:00 CDT, Duration: 30 day, Stop date: 02/21/19 4:46:00 CDT Dextrose 2018-0 No 12.5 gm, Memor ia 50% Syringe - 25 mL, l 09:47: Route: [place] [...] Memoria 3-31 (Same as: l 04:52: Zofran) [place] 00 MEDICATION WASTE Product [...] 04:52: BD [place] 00 Posiflush Sterile NS (Bolus) No 1,000 mL, Me moria IV 3- 1,000 l 04:51: ml/hr, Yonis 00 Infuse Over: 1 hr, Route: IV, 1,000, Drug form: INJ, ONCE, Priority: STAT, Dosing Weight 75.994 kg, Start date: 01/21/19 23:51:00 CDT, Stop date: 01/21/19 23:51:00 CDT NS (Bolus) 2018-0 No 1,000 mL, Me moria IV 3-31 1,000 l 04:51: ml/hr, [place] 00 Infuse Over: 1 [...] by ity of mg tablet 19:02: mouth [place] 27 every 6 Medical (six) Branch hours [...] 2020-09-30 14:00:00 126 mm[Hg] Univer [facility] Diastolic blood 2020-09-30 14:00:00 84 mm[Hg] Unive rsity of [facility] Heart rate 2020-09-30 14:00:00 79 /min Universi ty [facility] Oxygen saturation in 2020-09-30 14:00:00 98 /min University of Arterial blood by [facility] Pulse oximetry Branch Body temperature 2020-09-30 13:26:00 37.22 [facility] Respiratory rate 2020-09-30 13:26:00 16 /min Univ [facility] Body weight 2020-09-30 13:26:00 72.576 kg Universi ty [facility] BMI 2020-09-30 13:26:00 28.80 kg/m2 Universi ty [facility] Systolic blood 2020-09-30 14:00:00 126 mm[Hg] Univer [facility]ity of [facility] Diastolic blood 2020-09-30 14:00:00 84 mm[Hg] [facility] Heart rate 2020-09-30 14:00:00 79 /min Universi ty [facility] Oxygen saturation in 2020-09-30 14:00:00 98 /min University of Arterial blood by [facility] Pulse oximetry Branch Body temperature 2020-09-30 13:26:00 37.22 [facility] Respiratory rate 2020-09-30 13:26:00 16 /min Univ [facility] Body weight 2020-09-30 13:26:00 72.576 kg Universi ty [facility] BMI 2020-09-30 13:26:00 28.80 kg/m2 Universi ty of [place] [facility] Temperature Oral (F) 2019-01-28 01:16:00 98.6 F [facility] [place] Systolic (mm Hg) 2019-01-28 01:16:00 Estrada rial Yonis Diastolic (mm Hg) 2019-01-28 01:16:00 Mem orial [place] Heart Rate 2019-01-28 01:16:00 [facility] [place] Respitory Rate 2019-01-28 01:16:00 Memori al Y[place]is Systolic (mm Hg) 2019-01-27 20:42:00 Estrada rial [place] Diastolic (mm Hg) 2019-01-27 20:42:00 Mem orial [place] Heart Rate 2019-01-27 20:42:00 [facility] [place] Respitory Rate 2019-01-27 20:42:00 Memori al Yonis Temperature Oral (F) 2019-01-27 20:42:00 98.5 F Memorial Y[place] Systolic (mm Hg) 2019-01-27 17:00:00 Estrada rial [place] Diastolic (mm Hg) 2019-01-27 17:00:00 Mem orial [place] Temperature Oral (F) 2019-01-27 17:00:00 98.5 F Memorial Y[place]is Heart Rate 2019-01-27 17:00:00 [facility] [place] Respitory Rate 2019-01-27 [facility] [place] [facility] 2019-01-22 14:35:00 [facility] 2019-01-22 [facility] Weight 2019-01-22 14:35:00 [facility] Weight 2019-01-22 04:34:00 [facility] Procedures Procedure Date / Time Performed Performing Clinician Sourc e URINALYSIS 2020-09-30 13:27:00 Chuy Jackson o f [facility] Branch ADC,CLC OR LCC ONLY - 2020-09-30 13:27:00 [facility] INFLUENZA A & B DIRECT Medical B ranch ANTIGEN COVID-19 (ID NOW RAPID 2020-09-30 13:27:00 Chuy Jackson [facility] TESTING) Medical Branch Encounters Start End Encounter Admission Attending Care Care Encounter Source Date/Time Date/Time Type Type Clinicians Facility Department ID 2021-09-08 Outpatient Humaira-Mbayo VFP [facility] [id number] - [facility] 02:24:16 _A_AH [id number] Family Practic e 2021-09-07 Outpatient Humaira-Mbayo [facility] [id number] [place] 22:13:27 _A_AH 82596 Family Practic e 2021-09-07 Outpatient Humaira-Mbayo [facility]FP [facility] [id number] [place] 13:23:42 _A_AH 48171 Family Practic e 2021-09-06 Outpatient Humaira-Mbayo VFP [facility] [id number] [place] 04:23:58 _A_AH 33742 Family Practic e 2021-09-05 Outpatient Humaira-Mbayo VFP [facility] [id number] [place] 19:22:48 _A_AH 76163 Family Practic e 2019-01-22 Inpatient E [facility] MED [id number] W 04:39:00 2020-09-30 2020-09-30 Emergency [facility] [id number] 07:22:00 08:18:00 Chuy Jimenez [id number] [place] [id number] [place] [address] [id number] [facility] 2020-09-30 2020-09-30 Emergency [facility] [id number] [facility] 07:22:00 08:18:00 Chuy Jimenez [id number] i ty [facility] 4.2.7.2.[address] [place] [id number] 2020-09-30 2020-09-30 Emergency X [facility] ERT [id number] Univers 07:22:00 07:22:00 CHUY tubbs [facility] 2020-03-04 2020-03-14 Inpatient 3 Ronni Eldridge [facility] PSY [id number] 15:38:00 15:25:00 Ronni Eldridge [facility] 2019-01-22 2019-01-28 Inpatient [facility] [id number] Memoria 04:33:00 04:40:00 martin Somers 00 l [facility] 2018-02-21 2018-02-20 Inpatient E LOS [facility] MED [id number] [address] 14:48:00 13:18:00 [facility] Results Test Description Test Time Test Comments Results Result Comments Source ADC,CLC OR LCC ONLY - INFLUENZA A & B DIRECT ANTIGEN 2020-09 14:04:00 Test Item Value Reference Range Interpretation Comme nts Influenza A (test code = 46751-6) Negative Negative Influenza B (test code = 71385-5) Negative Negative Lab Interpretation (test code = 23295-0) Normal [facility] (ID NOW RAPID TESTING)2020-09-30 14:03:00 Test Item Value Reference Range Interpretation Comments SARS-CoV-2 Rapid ID NOW Not Detected Not Detected (test code = 55122-6) PERRY (test code = PERRY) ID NOW COVID-19 Assay is an isothermal nucleic acid amplification test intended for the qualitative detection of nucleic acid from SARS-CoV-2 viral RNA in nasopharyngeal (FURNACE CONVERTER) specimens. It is used under Emergency Use [...] indicated. Lab Interpretation Normal (test code = 89653-5) [facility]2020-12-07 13:55:00 Test Item Value Reference Range Interpretation Comments APPEARANCE (test code = Hazy Clear A 3317727622) COLOR (test code = Yellow Yellow 9991915962) PH (test code = 4.8-8.0 6217174496) SP GRAVITY (test code = 1.003-1.030 6961882449) GLU U QUAL (test code = Normal Normal 5252667231) BLOOD (test code = Negative Negative 3922002251) KETONES (test code = 5 mg/dL Negative A 0868520072) PROTEIN (test code = Negative Negative 2887-8) UROBILIN (test code = 2.0 mg/dL Normal A 1230355147) BILIRUBIN (test code = Negative Negative 5253823059) NITRITE (test code = Negative Negative 4340508857) LEUK ROZINA (test code = 25/uL Negative A 6411588921) RBC/HPF (test code = See_Comment [Autom ated message] 2860597019) The system [employer] generated this result transmit ngozi reference range : 0 - 3 HPF. The refe rence range was not u sed to interpret th is result as normal/abnormal . WBC/HPF (test code = See_Comment [Autom ated message] 0338303117) The system [employer] generated this result transmit ngozi reference range : 0 - 5 HPF. The refe rence range was not u sed to interpret th is result as normal/abnormal . BACTERIA (test code = Few Negative A 8384946135) MUCOUS (test code = Slight Negative LPF A 0380239560) SQ EPITH (test code = HPF 1986696502) Lab Interpretation (test Abnormal code = 64311-4) [facility] FallsRPR Ftoygzejumz9207-86-31 16:42:24 Test Item Value Reference Range Interpretation [...] = 10-24-2020 N Expiration Dt) Thyroid Stimulating Uultrtk9616-92-70 08:35:16 Test Item Value Reference Range Interpretation Comments TSH (test code = TSH) 1.170 mIU/mL 0.270-4.200 Lipid Cpnys9832-06-83 08:21:19 Test Item Value Reference Range Interpretation Comments Cholesterol Total 254 mg/dL 0-200 H RISK OF HE ART (test code = DISEASEPublishe d by Cholesterol Total) [employer] Cathie lyte Optimal Borderl ine [...] calculation is LDL/HDL Ratio=L DL Calc/HDL Chol STLSSSQBEYAJ5304-19-19 08:24:008.6[facility] JujyitiMDABJAEZRTJQ3136-97-41 08:24:75243Lissflgl QzbypvhJSJGUYRJUBTH7218-99-96 08:24:0027[facility] [place] NWWGJCLWCOGT0351-90-77 08:24:04356Uhllrstm JygmevlDJFPFLLTCHWF2635-36-14 08:24:003.6[facility]orial OevxviqPBAOCITDRAQC6837-81-61 08:24:000.70[facility] Y[place]is EWJNHUUMIRUT4469-24-19 08:24:008.4[facility]orial FdhpmkjJGHLAADRTKLR0589-03-89 08:24:09690Qlpqzwvu AqmlxftZHHXSRTMMXXH5624-49-81 08:24:0086[facility] BHEMBFBGZOZH8985-72-25 08:24:006[facility] HojopwaNNOUVRQEOB9091-73-61 08:24:00 11.6[facility] YeeigmkNPAENXAUJV8025-04-18 08:24:003.78[facility]ann[facility]MATOLOGY 2019-01-26 08:24:0013.3[facility]orial XzwlteyXZZTUQKBIM8989-80-64 08:24:0034.0[facility]orial BvxgvqhWQCYLVPAVU6723-53-03 08:24:006.3[facility] RzneofnNAKPJMGYLP5509-04-73 08:24:00 Test Item Value Reference Range Interpretation Comments MCH (test code = MCH) 30.7 pg 27.0-31.0 Memorial MrgmzdpSUBVJUNHCA5895-81-87 08:24:0090.3[facility] HermannHEMATOLOGY 2019-01-26 08:24:0034.2[facility] RooldpiEFPHAPWMOK4886-53-45 08:24:74980Gfclqmsn UsextfmBVJOVUASCA6784-78-69 08:24:007.5[facility] VkeuvqzKUVLULLOACVS5617-34-68 08:24:008.6[facility] WomwpojCHFDNCARGRTR6184-60-51 08:24:42393Hgadjoxw [place] HBIIUEXCOAAQ6573-01-66 08:24:0027[facility] KqzooeuIYJCUKTFPTCT3416-41-88 08:24:00 139[facility]orial LtmtyhgNZRBJAZZKGXG1427-06-83 08:24:003.6[facility] Yonis XDTYUFXBMVIH9620-33-97 08:24:000.70[facility]orial CxuzijkNUJOVKZNTRMB1925-43-76 08:24:008.4[facility]orial RtlblvgDXKFLFXXKHXR2354-86-55 08:24:94959Vtaouhxt Yonis LHZJGHHSUJSF7220-05-47 08:24:0086Memorial XxnuxazMBSLCNOYJAAH6204-10-02 08:24:00 6[facility]orial OkrtmvhGHOKNHTYTW1312-31-12 08:24:0011.6[facility] HermannHEMATOLOGY 2019-01-26 08:24:003.78[facility] JxzudjyIXJSWEUKNT5512-63-79 08:24:0013.3[facility]orial GcglmuwAJLQRAUIFD0887-35-56 08:24:0034.0[facility] OiwlezkTOJIPVEIKS1993-56-33 08:24:006.3[facility] WfalbaqJVORWBCUOT8229-39-85 08:24:00 Test Item Value Reference Range Interpretation Comments MCH (test code = MCH) 30.7 pg 27.0-31.0 Memorial BqakdvwHNBEMOPRXL4986-36-43 08:24:0090.3[facility] HermannHEMATOLOGY 2019-01-26 08:24:0034.2[facility] QekjjfxDCUTKNONXL7897-72-39 08:24:06166Clnmrxlx DldjwdhZWUQIEXQIW4433-33-12 08:24:007.5[facility] HermannCHEM AFHOA9298-27-27 09:14:30846Ebhpunrf HermannCHEM CURYX2325-21-59 09:14:008.5[facility] HermannCHEM CFPXJ6207-96-12 09:14:0013.3[facility] HermannCHEM DHWFP4539-21-07 09:14:0024 [facility] HermannCHEM KHSHP0895-90-82 09:14:98556Mlviuuuv HermannCHEM PANEL 2019-01-25 09:14:0081Memorial HermannCHEM UEEDX3793-39-59 09:14:002[facility] HermannCHEM CHJHZ5082-94-54 09:14:003.3[facility] HermannCHEM FCBAW5634-28-05 09:14:000.60[facility] HermannCHEM DPDSY9924-05-38 09:14:01948Vxugvexm HermannCHEM NBTRQ7978-40-61 09:14:58013Svqgespc HermannCHEM ICCWS5105-10-65 09:14:008.5 [facility] HermannCHEM WROWY0378-95-73 09:14:0013.3[facility] HermannCHEM PANEL 2019-01-25 09:14:0024Memorial HermannCHEM LUEYR5730-97-98 09:14:41840Lfhothqh HermannCHEM QSEGK9609-35-18 09:14:0081[facility]orial HermannCHEM CPZSI9584-90-30 09:14:002[facility]orial HermannCHEM AGHAO0767-64-87 09:14:003.3[facility] HermannCHEM OXAWN5412-46-94 09:14:000.60[facility] HermannCHEM KEFBT4028-29-91 09:14:14304 [facility] HermannMOLECULAR SYGQMGNAXL3883-53-92 16:22:00Negative (01/23/19 11:22 AM)[facility] HermannMOLECULAR FRDHSRXTBW6326-19-81 16:22:00Negative (01/23/19 11:22 AM)[facility] HermannCHEM EZTST8057-72-55 15:42:002.76[facility] HermannCHEM PANEL 2019-01-23 15:42:002.76[facility] HermannCHEM ZBRIP3909-93-21 12:32:000.9[facility] HermannCHEM QRJXL2866-65-10 12:32:000.9[facility] HermannCHEM WRRIW0923-57-81 10:50:002.0[facility] HermannCHEM PGDTC6599-43-23 10:50:90157Xpxlpetd HermannCHEM LZKOR5298-59-34 10:50:0023Mem[facility] HermannCHEM YGOET7853-38-61 10:50:72243 [facility] HermannCHEM LSFBX1725-22-10 10:50:003.1[facility] HermannCHEM PANEL 2019-01-23 10:50:27949Kmsljlok HermannCHEM NBUGL0184-86-94 10:50:005[facility] HermannCHEM VXVRM8920-75-85 10:50:000.50[facility] HermannCHEM OSUPM5021-95-45 10:50:007.8[facility] HermannCHEM WQOCY7345-09-72 10:50:0083[facility] HermannCHEM AKQJH8236-22-42 10:50:0010.1[facility]orial TxdjusrUXMZHXWLDT8832-75-75 10:50:000.2 Memorial AberrvzGJTASSUUPX8272-49-33 10:50:000.8[facility] HermannHEMATOLOGY 2019-01-23 10:50:005.5[facility]orial OtdhcxoOYGMLLBPBK0607-07-12 10:50:002.2[facility] SijcbstUNCDVCCTFQ4067-97-42 10:50:000.1[facility] UficrgvXHFSQJOXHE5395-83-77 10:50:0063.6[facility]orial GecsobdGQASJLJJWG0170-04-63 10:50:008.9[facility] [place] TORRMHNYPH2415-94-81 10:50:002.3[facility]orial TjwpvclLHXLTQRFJZ7440-70-36 10:50:00 Normal (01/23/19 5:50 AM)[facility]orial TdcrvwmXLZRQXFCLR0513-72-23 10:50:00Normal (01/23/19 5:50 AM)[facility] IhzxwxuTHUGRDHWFX3457-73-99 10:50:0025.1[facility] XxjluilGHGIQQZEJE1378-16-98 10:50:0013.1[facility] HdgdkmnBJUBBKBYGI0627-74-50 10:50:93854Yaohcrpn XdpchthRNYZABDDRE3020-85-07 10:50:007.7[facility] [place] AMMIDFYIGH7010-01-60 10:50:008.6[facility] OnmzljtQDIHYUORDY0135-09-03 10:50:00 10.0[facility] IyixszzWLXXETALWW1013-82-94 10:50:0034.6[facility] HermannHEMATOLOGY 2019-01-23 10:50:0028.7[facility] YujevskIBSEIVVFPT9542-95-19 10:50:0087.8[facility] PaqsmfnVZGPXJMDSS6068-16-60 10:50:00 Test Item Value Reference Range Interpretation Comments MCH (test code = MCH) 30.4 pg 27.0-31.0 Memorial WrnwauqDIZVPOINRY0861-41-03 10:50:003.27[facility] HermannCHEM PANEL 2019-01-23 10:50:002.0[facility] HermannCHEM KMGOJ7217-74-76 10:50:94613Twvqueem HermannCHEM KYRUG1308-03-12 10:50:0023[facility] HermannCHEM VFPET2569-79-31 10:50:88930Eatsibye HermannCHEM YYIJF5137-01-43 10:50:003.1[facility] HermannCHEM XGWST6469-29-48 10:50:86718Bjzycson HermannCHEM EYWUU7609-09-16 10:50:005 [facility] HermannCHEM CMBPZ1758-27-97 10:50:000.50[facility] HermannCHEM PANEL 2019-01-23 10:50:007.8[facility] HermannCHEM XCOFK5198-16-29 10:50:0083[facility] HermannCHEM DQNJP3574-91-79 10:50:0010.1[facility] HhpuwtuBDVEHRRDOO0083-13-91 10:50:000.2[facility] HsfnttfHGVTSLEKIN5684-51-12 10:50:000.8[facility] [place] OWUOBJMLLS0030-79-24 10:50:005.5[facility] QidljtyMXANNLYONP9241-55-27 10:50:002.2 Memorial BmpvxdkGAMCDWJHGE9718-63-86 10:50:000.1[facility] HermannHEMATOLOGY 2019-01-23 10:50:0063.6[facility] LwbcoezLTETNLUHMA7401-44-02 10:50:008.9[facility] EdmxbdiJFIBVMWJVI8388-70-72 10:50:002.3[facility] RzsbodzXNTDODCGTS0276-23-26 10:50:00Normal (01/23/19 5:50 AM)[facility] NwpeyhaXHUFQLGCMW4091-13-22 10:50:00 Normal (01/23/19 5:50 AM)[facility] JwjzazxOCLAOITYYW9971-24-77 10:50:0025.1[facility] DotxfkfCGSHWAIGUR8194-77-91 10:50:0013.1[facility] JzskmvoYBCEULVUFA8050-00-10 10:50:90007Tkwhegdc AjtxlobZXVIJMSCOK5334-86-83 10:50:007.7[facility] Yonis DRHQUJSXVP7997-28-97 10:50:008.6[facility] JkcjqpiONMDHWOKIK4989-20-01 10:50:00 10.0[facility] TfxuqisWUHWPNPOPG0447-38-46 10:50:0034.6[facility] HermannHEMATOLOGY 2019-01-23 10:50:0028.7[facility] ZelintxIFRCWXOKXC9567-19-91 10:50:0087.8[facility] VgstfeuWAFIAMJLGW5360-16-21 10:50:00 Test Item Value Reference Range Interpretation Comments MCH (test code = MCH) 30.4 pg 27.0-31.0 Memorial XwzzsdfEEMWISRMBS9974-95-50 10:50:003.27[facility] HermannCHEM PANEL 2019-01-22 11:32:002.4[facility] HermannCHEM FYKKL6170-40-68 11:32:002.4[facility] HermannCHEM CDHTT9698-04-06 09:04:003.0[facility] HermannCHEM PXRQX8366-04-52 09:04:003.0[facility] HermannURINE AND YXXKF6720-16-39 07:14:00Negative (01/22/19 2:14 AM)[facility]ann[facility] AND JLWZF5212-67-85 07:14:00Negative *NA*(01/22/19 2:14 AM)[facility]annUR[facility] AND DUUQW9593-03-26 07:14:00Negative *NA*(01/22/19 2:14 AM)[facility]ann[facility] AND FWXUK8515-08-26 07:14:00Negative *NA*(01/22/19 2:14 AM)[facility] AND ZQRQE3733-58-80 07:14:00Negative (01/22/19 2:14 AM)[facility]ann[facility] AND QBEEL9143-42-10 07:14:00Negative (01/22/19 2:14 AM) [facility] AVAUF1716-68-91 07:14:00Negative (01/22/19 2:14 AM) [facility] VAVDG1624-44-25 07:14:00<1[facility]annUR[facility] AND FJUZV7743-80-79 07:14:0025[facility]annURINE AND ACWPU2616-52-16 07:14:002 [facility] TTRWF4550-04-29 07:14:00Light Yellow *NA*(01/22/19 2:14 AM)[facility] AND TSGNB3746-04-32 07:14:00Clear (01/22/19 2:14 AM) [facility] XFSAG5856-64-86 07:14:00 Test Item Value Reference Range Interpretation Comments UA Spec Grav (test code = UA Spec 1.014 1 Grav) [facility] AOSPT2750-53-46 07:14:00 Test Item Value Reference Range Interpretation Comments UA pH (test code = UA pH) 6.0 1 5.0-8.0 [facility] [id number] 07:14:00Negative (01/22/19 2:14 AM) [facility] [id number] 07:14:00Negative *NA*(01/22/19 2:14 AM) [facility] [id number] 07:14:00Negative *NA*(01/22/19 2:14 AM) [facility] [id number] 07:14:00Negative *NA*(01/22/19 2:14 AM) [facility] [id number] 07:14:00Negative (01/22/19 2:14 AM) [facility] [id number] 07:14:00Negative (01/22/19 2:14 AM) [facility] [id number] 07:14:00Negative (01/22/19 2:14 AM) [facility] [id number] 07:14:00<1[facility] [id number] 07:14:0025[facility] [id number] 07:14:002 [facility] [id number] 07:14:00Light Yellow *NA*(01/22/19 2:14 AM)[facility] [id number] 07:14:00Clear (01/22/19 2:14 AM) [facility] [id number] 07:14:00 Test Item Value Reference Range Interpretation Comments UA Spec Grav (test code = UA Spec 1.014 1 Grav) [facility] [id number] 07:14:00 Test Item Value Reference Range Interpretation Comments UA pH (test code = UA pH) 6.0 1 5.0-8.0 [facility] [id number] 05:16:000.90[facility] [id number] 05:16:000.90[facility] [id number] 05:01:00Negative (01/22/19 12:01 AM)[facility]annCARDIAC [id number] 05:01:00<0.02 [facility] [id number] 05:01:0049[facility]annCHEM PANEL 2019-01-22 05:01:000.6[facility]annCHEM [id number] 05:01:26190Ztnursmb HermannCHEM [id number] 05:01:004.0[facility]annCHEM [id number] 05:01:0017[facility]annCHEM [id number] 05:01:0025[facility]annCHEM [id number] 05:01:008.1[facility]annCHEM [id number] 05:01:00 Test Item Value Reference Range Interpretation Comments B/C Ratio (test code = B/C Ratio) 20 1 6-25 [facility]annCHEM [id number] 05:01:00 Test Item Value Reference Range Interpretation Comments A/G Ratio (test code = A/G Ratio) 1.0 1 0.7-1.6 [facility] [id number] 05:01:004.1[facility]annCHEM PANEL 2019-01-22 05:01:006.90[facility] CnjarafKRLBQVCPEZJLH9451-27-26 05:01:00Negative *NA*(01/22/19 12:01 AM)[facility] BfogvfkYIMXWRGHCN7582-03-05 05:01:000.1[facility] BceqzhmEPJRUSCPVO8569-86-66 05:01:000.7[facility] NjraseaTLUUQWQFCR7478-64-53 05:01:000.0[facility] ZsjswkqTRIWKSKABQ9356-50-11 05:01:000.0[facility] Yonis IUHIJBQGBY7862-86-56 05:01:000.9[facility] BdxljqkWOOLALSQFL3288-95-47 05:01:008.6 [facility] ImdbyppTFXKTEVJSN9423-93-58 05:01:000.6[facility]annHEMATOLOGY 2019-01-22 05:01:0086.5[facility] DggkwccECADCTXFBM4892-04-83 05:01:005.7[facility] YcefjvzZLBFSTZAFE5772-28-33 05:01:006.9[facility] GsudixpTFFAWCQHYG1915-61-86 05:01:009.9[facility] ZwhuvzxETPBVAJBMQ5552-58-55 05:01:0032.8[facility] XJMETVNNGQ7797-82-48 05:01:0013.6[facility] MejlusvDMIWINRYMF0112-49-65 05:01:00 443[facility] ZpgclwcLXLYRBOWUB7608-65-60 05:01:007.3[facility]annHEMATOLOGY 2019-01-22 05:01:0014.0[facility] UmbweitDISCXGBWPJ0505-33-92 05:01:004.85[facility] HlotspyPCPUJWAPFT7601-47-54 05:01:0042.7[facility] PyfknmyNHRIFINJHA2141-44-96 05:01:00 Test Item Value Reference Range Interpretation Comments MCH (test code = MCH) 29.0 pg 27.0-31.0 [facility] GrwsmnpRPVAHSKYFJ2138-99-89 05:01:0088.2[facility]annHEMATOLOGY 2019-01-22 05:01:00 Test Item Value Reference Range Interpretation Comments INR (test code = INR) 0.96 1 0.85-1.17 [facility] YpasqjpJFOFMMVWCR4279-10-65 05:01:00 Test Item Value Reference Range Interpretation Comments PT (test code = PT) 12.6 s 12.0-14.7 [facility] HcdkbueYXSZIVMBUP2587-31-66 05:01:00 Test Item Value Reference Range Interpretation Comments PTT (test code = PTT) 25.9 s 22.9-35.8 [facility] CIOWVVP8668-91-60 05:01:00Negative (01/22/19 12:01 AM) [facility]annCARDIAC IEOKDLN3053-39-51 05:01:00<0.02[facility] CARDIAC ZQONPWJ7565-42-14 05:01:0049[facility]annCHEM RUIVR5063-70-86 05:01:000.6[facility]annCHEM JRKMA3817-64-03 05:01:33361Nsyekccf HermannCHEM UPTFD0871-90-09 05:01:004.0[facility]annCHE[facility] IKQFC6981-38-35 05:01:0017 [facility] CWTPS9732-86-46 05:01:0025[facility]annCHE[facility] PANEL 2019-01-22 05:01:008.1[facility]annCHEM FPICK8769-43-06 05:01:00 Test Item Value Reference Range Interpretation Comments B/C Ratio (test code = B/C Ratio) 20 1 6-25 [facility] [id number] 05:01:00 Test Item Value Reference Range Interpretation Comments A/G Ratio (test code = A/G Ratio) 1.0 1 0.7-1.6 [facility] [id number] 05:01:004.1[facility]annCHEM PANEL 2019-01-22 05:01:006.90[facility] OnuwuwuYRSHUUBEYQLLB6996-62-89 05:01:00Negative *NA*(01/22/19 12:01 AM)[facility] IwxjcxfOVSDJIGHAO7246-63-23 05:01:000.1[facility] YzajlphVDWDVYRZYN8761-14-78 05:01:000.7[facility] WeptfrvTIEGNJFZJH6704-02-26 05:01:000.0[facility] RlioeogNXMEXDRQVA1151-20-12 05:01:000.0[facility] Ynois JTQLITACZH8396-49-96 05:01:000.9[facility] SpyhqxdXKMSEKMOJA8204-90-55 05:01:008.6 [facility] EotutrcRBSDVTJSMV2833-09-70 05:01:000.6[facility]annHEMATOLOGY 2019-01-22 05:01:0086.5[facility] InoghijXRIEEZFQQS1858-24-72 05:01:005.7[facility] AhwbaxnOXYWYYNVRR5856-37-60 05:01:006.9[facility] DovstmoFCEZNJKJOT5209-32-58 05:01:009.9[facility] NbrwkagFXLJGCIEJL8032-71-15 05:01:0032.8[facility] FBZCBCVYUX3888-35-33 05:01:0013.6[facility] FifiqaiBULDSAPJUQ7953-85-33 05:01:00 443[facility] TlacevrWFSWRFRPKS4931-42-95 05:01:007.3[facility]annHEMATOLOGY 2019-01-22 05:01:0014.0[facility] OmjrnhlLIZOHLTPKM1863-05-76 05:01:004.85[facility] TucfffmCVUPYUDYPQ7474-49-14 05:01:0042.7[facility] XgzxlsyOPSWWUGBRN9592-38-44 05:01:00 Test Item Value Reference Range Interpretation Comments MCH (test code = MCH) 29.0 pg 27.0-31.0 [facility] CenterWpilhgyBBFKOEBBTL6373-79-46 05:01:0088.2[facility] 05:01:00 Test Item Value Reference Range Interpretation Comments INR (test code = INR) 0.96 1 0.85-1.17 [facility] CenterYzmyybdRKJIGAQBVR1709-12-12 05:01:00 Test Item Value Reference Range Interpretation Comments PT (test code = PT) 12.6 s 12.0-14.7 [facility] CenterSianmpnUAETGYJSTB5445-47-85 05:01:00 Test Item Value Reference Range Interpretation Comments PTT (test code = PTT) 25.9 s 22.9-35.8 [place] [id number] 14:36:00 Test Item Value Reference Range Interpretation [...] 0.00-0.01 N code = ETOHU) Comprehensive Metabolic Sbgpj2246-43-12 14:36:00 Test Item Value Reference Range Interpretation [...] the National Kid[employer],http ://nkd ep.nih.gov Urinalysis Rmglziyj2217-77-93 14:32:00 Test Item Value Reference Range Interpretation Comments Color (test code = COLOR) Yellow Yellow,Straw,Pl N yellow Clarity (test code = Clear Clear N CLAR) Specific [place] (test 1.024 1.001-1.035 N code = SPGR) [...] code = Few /HPF BACT) CBC with Awsfvwyhrper9153-77-41 14:21:00 Test Item Value Reference Range Interpretation [...] code = ALYMPH) 3.0 K/cumm 0.5-4.6 N Russell Abs (test code = AMONO) 0.5 K/cumm 0.0-1.2 N Eos Abs (test code = AEOS) 0.19 K/cumm 0.00-0.74 N Baso Abs (test code = ABASO) 0.1 K/cumm 0.00-0.21 N
--- NOTE | 2021-09-08 21:42 | RAD REPORT ---
EXAM DESCRIPTION: CT - Head Brain Wo Cont - 09/08/2021 9:37 pm CLINICAL HISTORY: SYNCOPE COMPARISON: Head Brain Wo Cont dated 08/28/2021 TECHNIQUE: Axial 5 mm thick images of the head were obtained without IV contrast. All CT scans are performed using dose optimization technique as appropriate and may include automated exposure control or mA/KV adjustment according to patient size. FINDINGS: No intracranial hemorrhage, mass, edema or shift of mid-line structures. No acute infarcti on changes seen. No abnormal extra-axial fluid collections. Ventricles are normal. Mastoid air cells and visualized portions of the paranasal sinuses are clear. No acute bony findings. No significant change from comparison. IMPRESSION: Negative non-contrast CT head examination.
--- NOTE | 2021-09-08 21:42 | RAD REPORT ---
EXAM DESCRIPTION: RAD - Chest Single View - 09/08/2021 9:16 pm CLINICAL HISTORY: COUGH COMPARISON: September 04 TECHNIQUE: AP portable chest image was obtained 09/08/2021 9:16 pm . FINDINGS: No peripheral mass consolidation. Shallow inspiration accentuates the baseline interstitia l pattern. Heart and vasculature are normal. No measurable pleural effusion and no pneumothorax. No a cute bony abnormality seen. No acute aortic findings suspected. IMPRESSION: No acute cardiopulmonary process.
[2021-09-08 22:07] LABS: Absolute Lymphocytes (CBC) 2.1 K/uL (0.7-4.9); Basophils % 1.2 % (0-1.3); Hematocrit 40.3 % (36.0-45.0); Lymphocytes % 23.6 % (15.3-44.8); MPV 7.3 fL (7.6-11.3); RBC Red Blood Cell Count 4.68 M/uL (3.86-4.86)
[2021-09-08] MEDS ORDERED: NA CHLORIDE 0.9% 1,000 ML ONE (22:07)
[2021-09-08 22:37] LABS: Urine Blood Negative (Negative); Urine Glucose Negative (Negative); Urine Protein Negative (Negative); Urine Specific Gravity >=1.030 (1.005-1.030); Urine pH 6.5 (5.0-7.0)
[2021-09-08 22:55] LABS: ALT/SGPT 23 U/L (12-78); AST/SGOT 14 U/L (15-37); Alkaline Phosphatase 80 U/L (45-117); BUN Blood Urea Nitrogen 14 mg/dL (7-18); Bicarbonate 28 mmol/L (21-32); Bilirubin Direct 0.1 mg/dL (0-0.2); Bilirubin Total 0.4 mg/dL (0.2-1.0); Glucose Level 94 mg/dL (74-106); Magnesium 2.1 mg/dL (1.8-2.4); NT PRO-BNP 18 pg/mL (<125); Potassium 3.9 mmol/L (3.5-5.1); Protein, Total 7.4 g/dL (6.4-8.2); Sodium Level 144 mmol/L (136-145); Troponin (Emerg Dept Use Only) < 0.02 ng/mL (0.0-0.045)
[2021-09-08 22:58] LABS: Protime INR 0.98
[2021-09-08 23:00] LABS: Lithium < 0.2 mmol/L (0.6-1.2)
[2021-09-08 23:10] LABS: Barbiturates NEGATIVE (NEGATIVE); Benzodiazepines NEGATIVE (NEGATIVE); Cocaine NEGATIVE (NEGATIVE); METHAMPHETAM POSITIVE (NEGATIVE); Methadone NEGATIVE (NEGATIVE); Opiates NEGATIVE (NEGATIVE); Phencyclidine NEGATIVE (NEGATIVE); THC Cannibis NEGATIVE (NEGATIVE)
[2021-09-08] MEDS ORDERED: CEFTRIAXONE 1000 MG/VIAL ONE (23:18)
--- NOTE | 2021-09-08 23:55 | ER ---
Nurse's Notes [facility] Name: Tiffany Quinn Age: 51 yrs Sex: Female : 1970 Arrival Date: 09/08/2021 Time: 19:51 Bed 20 Private MD: Diagnosis: Anxiety disorder, unspecified;Abuse of other non-psychoactive substances;Adverse effect of amphetamines;Bipolar disorder, unspecified;UTI/ Urinary tract infection, site not specified Presentation: 09/08 20:40 Chief complaint: Patient states: Pt states she feels like she was going to "faint" df1 earlier today. Coronavirus screen: Vaccine status: Patient reports receiving the 2nd dose of the covid vaccine. Client denies travel out of the [place] in the last 14 days. At this time, the client does not indicate any symptoms associated with coronavirus-19. Ebola Screen: Patient negative for fever greater than or equal to 101.5 degrees Fahrenheit, and additional compatible Ebola Virus Disease symptoms Patient denies exposure to infectious person. Patient denies travel to an Ebola-affected area in the 21 days before illness onset. Initial Sepsis Screen: Does the patient meet any 2 criteria? No. Patient's initial sepsis screen is negative. Does the patient have a suspected source of infection? No. Patient's initial sepsis screen is negative. Risk Assessment: Do you want to hurt yourself or someone else? Patient reports no desire to harm self or others. Onset of symptoms was September 08, 2021. 20:40 Method Of Arrival: Ambulatory df1 20:40 Acuity: MANUEL 3 df1 20:43 Note Pt states she felt faint after doing Meth at lunch time today. df1 Triage Assessment: 20:42 General: Appears uncomfortable, unkempt, Behavior is anxious. Pain: Denies pain. 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 - Social history:: Smoking status: Patient denies any tobacco usage or history of. Patient uses street drugs, Methamphetamine (Meth). - Family history:: not pertinent. Screenin:25 Abuse screen: Denies threats or abuse. Nutritional screening: No deficits noted. cc4 Tuberculosis screening: No symptoms or risk factors identified. Fall Risk None identified. Assessment: 22:25 General: Appears Anxious; "tweaking".. Behavior is cooperative, anxious, "Tweaking". cc4 Pain: Denies pain. Neuro: Level of Consciousness is awake, alert, Oriented to person, place, Speech "Word salad". Cardiovascular: No deficits noted. Rhythm is sinus tachycardia. Respiratory: No deficits noted. Airway is patent Breath sounds are clear bilaterally. GI: No deficits noted. Abdomen is non-distended, Bowel sounds present X 4 quads. : No signs and/or symptoms were reported regarding the genitourinary system. EENT: No deficits noted. Eyes clear. Nares are clear Oral mucosa is dry. Derm: No deficits noted. Skin is intact. Musculoskeletal: Capillary refill < 3 seconds, Range of motion: intact in all extremities, "Tweaking" noted. Vital Signs: 20:40 BP 117 / 90; Pulse 115; Resp 18; Temp 98.5(O); Pulse Ox 100% on R/A; Weight 84.82 kg; df1 Height 5 ft. 2 in. (157.48 cm); Pain 0/10; 20:40 Body Mass Index 34.20 (84.82 kg, 157.48 cm) df1 ED Course: 19:51 Patient arrived in ED. cf2 20:40 Bill Palm MD is Attending Physician. jo 20:42 Triage completed. df1 21:16 XRAY Chest (1 view) In Process Unspecified. EDMS 21:30 Missed attempt(s): 20 gauge in left antecubital area. Bleeding controlled, band aid oe applied, catheter tip intact. 21:36 CT Head Brain wo Cont In Process Unspecified. EDMS 21:56 Yelena Breen, JIGNA is Primary Nurse. cc4 22:00 Inserted saline lock: 22 gauge in left hand, using aseptic technique. Blood collected. oe 22:04 Protime (+INR) Sent. cc4 22:04 Liver (Hepatic) Function Sent. cc4 22:04 Magnesium Sent. cc4 22:04 NT PRO-BNP Sent. cc4 22:04 Basic Metabolic Panel Sent. cc4 22:04 CBC with Automated Diff Sent. cc4 22:05 Acetaminophen Sent. cc4 22:05 ETOH Level Sent. cc4 22:05 Troponin (emerg Dept Use Only) Sent. cc4 22:05 PT-INR Sent. cc4 22:05 NT PRO-BNP Sent. cc4 22:05 Magnesium Sent. cc4 22:05 LFT's Sent. cc4 22:06 CBC with Diff Sent. cc4 22:06 Basic Metabolic Panel Sent. cc4 22:06 Urine Drug Screen Sent. cc4 22:06 Salicylate Sent. cc4 22:25 No provider procedures requiring assistance completed. cc4 22:25 Arm band placed on. cc4 22:25 Bed in low position. Call light in reach. Side rails up X 1. cc4 22:45 Ptt, Activated Sent. cc4 23:54 Chilo Smith MD is Referral Physician. [facility] 09/09 00:15 IV discontinued, intact, bleeding controlled, No redness/swelling at site. Pressure cc4 dressing applied. Administered Medications: 09/08 22:25 Drug: NS 0.9% 1000 ml Route: IV; Rate: 1 bolus; Site: left hand; [facility] 09/09 00:15 Follow up: IV Status: Completed infusion; IV Intake: 1000ml [facility] 09/08 23:15 Drug: Rocephin (cefTRIAXone) 1 grams Route: IV; Rate: per protocol; Site: left hand; [facility] 09/09 00:15 Follow up: Response: No adverse reaction cc4 Intake: 00:15 IV: 1000ml; Total: 1000ml. cc4 Outcome: 09/08 23:54 Discharge ordered by . [facility] 09/09 00:15 Discharged to home ambulatory. cc4 Condition: improved Discharge instructions given to patient, Instructed on discharge instructions, follow up and referral plans. medication usage, Demonstrated understanding of instructions, follow-up care, medications, Prescriptions given X 1. 00:39 Patient left the ED. cc4 Signatures: Dispatcher [employer] EDID Bill Palm MD MD cha Espinosa, [place] oe [place], [place] cf2 Yelena Breen, RN RN cc4 Tiffanie Weber df1 Corrections: (The following items were deleted from the chart) 09/08 22:11 22:04 LITHIUM+C.LAB.BRZ drawn and sent. cc4 EDMS
--- NOTE | 2021-09-08 23:55 | EDPHYS ---
Physician Documentation [facility] Name: Tiffany Quinn Age: 51 yrs Sex: Female : 1970 Arrival Date: 09/08/2021 Time: 19:51 Bed 20 Private MD: ED Physician Bill Palm HPI: 09/08 21:20 This 51 yrs old Female presents to ER via Ambulatory with complaints of Near jo Syncope. 21:20 The patient has experienced near-syncope, almost passed out, felt generally weak. jo Onset: The symptoms/episode began/occurred 115 day(s) ago. Duration: This was a single episode, that lasted 10 second(s). Context: occurred at home. Associated injury: The patient did not suffer any apparent associated injury. Associated signs and symptoms: Pertinent positives: agitation. Current symptoms: anxious. The patient has experienced a previous episode. 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 - Social history:: Smoking status: Patient denies any tobacco usage or history of. Patient uses street drugs, Methamphetamine (Meth). - Family history:: not pertinent. ROS: 21:20 Constitutional: Negative for fever, chills, and weight loss, Eyes: Negative for injury, jo pain, redness, and discharge, ENT: Negative for injury, pain, and discharge, Neck: Negative for injury, pain, and swelling, Cardiovascular: Negative for chest pain, palpitations, and edema, Respiratory: Negative for shortness of breath, cough, wheezing, and pleuritic chest pain, Abdomen/GI: Negative for abdominal pain, nausea, vomiting, diarrhea, and constipation, Back: Negative for injury and pain, : Negative for injury, bleeding, discharge, and swelling, MS/Extremity: Negative for injury and deformity, Skin: Negative for injury, rash, and discoloration, Psych: Negative for depression, anxiety, suicide ideation, homicidal ideation, and hallucinations, Allergy/Immunology: Negative for hives, rash, and allergies, Endocrine: Negative for neck swelling, polydipsia, polyuria, polyphagia, and marked weight changes, Hematologic/Lymphatic: Negative for swollen nodes, abnormal bleeding, and unusual bruising. 21:20 Neuro: Positive for weakness. Exam: 21:20 Constitutional: This is a well developed, well nourished patient who is awake, alert, jo and in no acute distress. Head/Face: Normocephalic, atraumatic. Eyes: Pupils equal round and reactive to light, extra-ocular motions intact. Lids and lashes normal. Conjunctiva and sclera are non-icteric and not injected. Cornea within normal limits. Periorbital areas with no swelling, redness, or edema. ENT: Nares patent. No nasal discharge, no septal abnormalities noted. Tympanic membranes are normal and external auditory canals are clear. Oropharynx with no redness, swelling, or masses, exudates, or evidence of obstruction, uvula midline. Mucous membranes moist. Neck: Trachea midline, no thyromegaly or masses palpated, and no cervical lymphadenopathy. Supple, full range of motion without nuchal rigidity, or vertebral point tenderness. No Meningismus. Chest/axilla: Normal chest wall appearance and motion. Nontender with no deformity. No lesions are appreciated. Cardiovascular: Regular rate and rhythm with a normal S1 and S2. No gallops, murmurs, or rubs. Normal PMI, no JVD. No pulse deficits. Respiratory: Lungs have equal breath sounds bilaterally, clear to auscultation and percussion. No rales, rhonchi or wheezes noted. No increased work of breathing, no retractions or nasal flaring. Abdomen/GI: Soft, non-tender, with normal bowel sounds. No distension or tympany. No guarding or rebound. No evidence of tenderness throughout. Back: No spinal tenderness. No costovertebral tenderness. Full range of motion. MS/ Extremity: Pulses equal, no cyanosis. Neurovascular intact. Full, normal range of motion. Neuro: Awake and alert, GCS 15, oriented to person, place, time, and situation. Cranial nerves II-XII grossly intact. Motor strength 5/5 in all extremities. Sensory grossly intact. Cerebellar exam normal. Normal gait. Psych: Awake, alert, with orientation to person, place and time. Behavior, mood, and affect are within normal limits. 21:20 Skin: Appearance: Color: pale, Temperature: normal temperature, Moisture: normal moisture, petechiae, not noted, abscess, not appreciated, cellulitis, is not appreciated, induration, is not appreciated. 21:29 ECG was reviewed by the Attending Physician. jo 22:49 Musculoskeletal/extremity: DVT Exam: No signs of deep vein thrombosis. no pain, no jo swelling, no tenderness, negative Homans' sign noted on exam, no appreciated bluish discoloration, no erythema, no increased warmth. Vital Signs: 20:40 BP 117 / 90; Pulse 115; Resp 18; Temp 98.5(O); Pulse Ox 100% on R/A; Weight 84.82 kg; df1 Height 5 ft. 2 in. (157.48 cm); Pain 0/10; 20:40 Body Mass Index 34.20 (84.82 kg, 157.48 cm) df1 MDM: 20:40 Patient medically screened. jo 21:28 Differential Diagnosis: cardiac arrhythmia, cerebrovascular accident, drug effect, jo emotional response, GI bleed, seizure, transient ischemic attack, vasovagal episode. Data reviewed: vital signs, nurses notes, lab test result(s), EKG, radiologic studies. Data interpreted: radiation monitor: rate is 115 beats/min, rhythm is regular, Pulse oximetry: on room air is 100 %. Test interpretation: by ED physician or midlevel provider: ECG, plain radiologic studies. Counseling: I had a detailed discussion with the patient and/or guardian regarding: the historical points, exam findings, and any diagnostic results supporting the discharge/admit diagnosis, lab results, radiology results, the need for outpatient follow up, for definitive care, a family practitioner. 09/08 20:42 Order name: Basic Metabolic Panel [facility] 09/08 20:42 Order name: CBC with Diff [facility] 09/08 20:42 Order name: LFT's [facility] 09/08 20:42 Order name: Magnesium [facility] 09/08 20:42 Order name: NT PRO-BNP [facility] 09/08 20:42 Order name: PT-INR [facility] 09/08 20:42 Order name: Troponin (emerg Dept Use Only); Complete Time: 23:52 [facility] 09/08 20:42 Order name: Acetaminophen; Complete Time: 23:52 [facility] 09/08 20:42 Order name: ETOH Level; Complete Time: 23:52 [facility] 09/08 20:42 Order name: Ptt, Activated; Complete Time: 23:52 [facility] 09/08 20:42 Order name: Salicylate; Complete Time: 23:52 [facility] 09/08 20:42 Order name: Urine Drug Screen; Complete Time: 23:52 [facility] 09/08 20:43 Order name: Basic Metabolic Panel; Complete Time: 23:52 [facility] 09/08 20:43 Order name: CBC with Automated Diff; Complete Time: 22:26 [facility] 09/08 20:42 Order name: XRAY Chest (1 view); Complete Time: 22:26 [facility] 09/08 20:42 Order name: EKG; Complete Time: 20:44 [facility] 09/08 20:42 Order name: Cardiac monitoring; Complete Time: 22:05 [facility] 09/08 20:42 Order name: EKG - Nurse/Tech; Complete Time: 22:05 [facility] 09/08 20:42 Order name: IV Saline Lock; Complete Time: 22:05 [facility] 09/08 20:42 Order name: Labs collected and sent; Complete Time: 22:05 [facility] 09/08 20:42 Order name: CT Head Brain wo Cont; Complete Time: 22:26 [facility] 09/08 20:43 Order name: Liver (Hepatic) Function; Complete Time: 23:52 [facility] 09/08 20:43 Order name: Magnesium; Complete Time: 23:52 [facility] 09/08 20:43 Order name: NT PRO-BNP; Complete Time: 23:52 [facility] 09/08 20:43 Order name: Protime (+INR); Complete Time: 23:52 [facility] 09/08 22:11 Order name: [place]; Complete Time: 23:52 [facility] 09/08 22:36 Order name: Urine Dipstick-Ancillary; Complete Time: 22:47 [facility] 09/08 20:42 Order name: O2 Sat Monitoring; Complete Time: 22:05 [facility] 09/08 20:42 Order name: Suicide Screening ([place]); Complete Time: 22:06 [facility] 09/08 20:42 Order name: Urine Dipstick-Ancillary (obtain specimen); Complete Time: 22:45 [facility] EC:29 Rate is 109 beats/min. Rhythm is regular. QRS [place] is Normal. [place] interval is normal. jo QRS interval is normal. QT interval is normal. No Q waves. T waves are Normal. No ST changes noted. Clinical impression: NSR w/ Non-specific ST/T Changes, Sinus tachycardia, and No evidence of ischemia. Interpreted by me. Reviewed by me. Administered Medications: 22:25 Drug: NS 0.9% 1000 ml Route: IV; Rate: 1 bolus; Site: left hand; cc4 09/09 00:15 Follow up: IV Status: Completed infusion; IV Intake: 1000ml cc4 09/08 23:15 Drug: Rocephin (cefTRIAXone) 1 grams Route: IV; Rate: per protocol; Site: left hand; 4 09/09 00:15 Follow up: Response: No adverse reaction cc4 Disposition Summary: 09/08/21 23:54 Discharge Ordered Location: Home jo Problem: new jo Symptoms: have improved jo Condition: Stable jo Diagnosis - Anxiety disorder, unspecified jo - Abuse of other non-psychoactive substances jo - Adverse effect of amphetamines jo - Bipolar disorder, unspecified jo - UTI/ Urinary tract infection, site not specified jo Followup: jo - With: Private Physician - When: 2 - 3 days - Reason: Recheck today's complaints, Continuance of care, Re-evaluation by your physician Followup: jo - With: Chilo Smith MD - When: 2 - 3 days - Reason: Recheck today's complaints, Re-evaluation by your physician Discharge Instructions: - Discharge Summary Sheet jo - Near-Syncope oj - Substance Use Disorder jo - Near-Syncope, Lgxm-[id number] jo - Aspirin and Your Heart jo - Substance Use Disorder and Mental Illness jo Forms: - Medication Reconciliation Form jo - Thank You Letter jo - Antibiotic Education jo - Prescription Opioid Use jo Prescriptions: - Bactrim DS 800-160 mg Oral Tablet - take 1 tablet by ORAL route every 12 hours for 7 days; 14 tablet; Refills: 0, jo Product Selection Permitted Signatures: Dispatcher [employer] EDMS Bill Palm MD MD cha Cooper, Christie RN RN cc4 Tiffanie Weber df1 Corrections: (The following items were deleted from the chart) 09/08 22:11 21:20 LITHIUM+C.LAB.BRZ ordered. EDMS EDMS
[2021-09-09 00:58] VITALS: BP 117/90; TEMP 98.5; O2SAT 100
--- NOTE | 2021-09-09 16:53 | EKG ---
Test Date: 2021-09-08 Test Time: 20:59:09 Recreation Program Specialist: LARS MEASUREMENT RESULTS: Intervals: Rate: 109 SC: 130 QRSD: 84 QT: 350 QTc: 471 [place]: P: 7 SC: 130 QRS: -25 T: 49 INTERPRETIVE STATEMENTS: Sinus tachycardia Cannot rule out Anterior infarct, age undetermined Abnormal ECG Compared to ECG 09/05/2021 18:48:32 No significant changes Electronically Signed On 09-09-21 16:51:09 MANAGER MENTAL HEALTH by Tito Smiley
== END 2021-09-09 00:39 | disposition home or self-care (01) ==
LOC: ER 19:47
DX: F41.9 Anxiety disorder, unspecified (principal); F55.8 Abuse of other non-psychoactive substances; T43.625A Adverse effect of amphetamines, initial encounter; N39.0 Urinary tract infection, site not specified; F31.9 Bipolar disorder, unspecified; Z88.5 Allergy status to narcotic agent; Z88.8 Allergy status to other drugs, medicaments and biological substances; Z98.82 Breast implant status
CPT/HCPCS: 96361; 93005; 85025; 80048; 36415; 80320; 83735; 80329 ×2; 85610; 80178; 80076; 85730; 81003; 84484; 83880; 80307; 70450; 71045; 96374; 99284; J7030

== ENCOUNTER 2021-09-10 18:25 | Emergency (ER) | payer OTHER ==
--- OUTSIDE RECORDS SUMMARY | 2021-09-10 18:32 | XMS REPORT | Continuity of Care Document ---
:1970 Author Organization [facility] t Address [address] [place] [address] Care Team Providers Name Role Phone UNKNOWN Primary Care Physician Unavailable Humaira-Mbayo_A_AH Attending Clinician Unavailable Sanchez SNOW Attending Clinician SANCHEZ Attending Clinician Unavailable HANSA, S Attending Clinician Unavailable Hansa HOFFMANN, S Attending Clinician Doctor Unassigned, Name Attending Clinician Unavailable Singer ESCALANTE Attending Clinician Attending Clinician Unavailable Chente Attending Clinician Unavailable Chente Attending Clinician Unavailable AFUWAPE Attending Clinician Unavailable Humaira-Mbayo_A_AH Admitting Clinician Unavailable Chente Admitting Clinician Unavailable AFUWAPE Admitting Clinician Unavailable Payers Payer Name Policy Type Policy Number Effective Date Expiration Date S [facility] [place] [facility] [place] - [id number] 2020 [employer] 00:00:00 (MEDICARE REPLACEMENT/ADVANT AGE - HMO) Problems Condition Condition Condition Status Onset Resolution Last Treating Co mments Source Name Details Category Date Date Treatment Clinician Date LOW PB Diagnosis Active 2019-01-22 Mem oria 01-21 01:52:00 l LOW PB 00:00: [place] 00 Active 01/21/2019 [facility] INFECTIOUS Diagnosis Active 2019-02-06 Memoria GASTROENTE 01-21 08:58:00 l RITIS AND 00:00: Yon[place] COLITIS INFECTIOUS 00 GASTROENTE RITIS AND COLITIS Active 01/21/2019 [facility] Irregular Irregular Disease Active Uni vers menstrual menstrual 8-15 ity of cycle cycle 00:00: [address] Skin Skin Disease Active Univers lesion lesion 8-15 ity of 00:00: [address] Psychiatri Psychiatri Disease Active U nivers c disorder c disorder 8-15 it y of 00:00: [address] Well woman Well woman Disease Active U nivers exam with exam with 8-15 ity of routine routine 00:00: [place] gynecologi gynecologi 00 Me dical nicky exam nicky exam Branch INFECTIOUS Diagnosis Active 2019-02-06 Memoria GASTROENTE 08:58:00 l RITIS AND [place] COLITIS, INFECTIOUS GASTROENTE RITIS AND COLITIS, Active [facility] Allergies, Adverse Reactions, Alerts Allergy Allergy Status Severity Reaction(s) Onset Inactive Treating Comm ents Source Name Type Date Date Clinician Phenerga Phenerga Active Memori a n n l Yonis NO KNOWN Drug Active Univers ALLERGIE Class ity of S [facility] Social History Social Habit Start Date Stop Date Quantity Comments Source History of Cigarette Smoker Universi ty of tobacco use [facility] Tobacco Comment 2-3 cigs a day [facility] Exposure to Not sure [place] of SARS-CoV-2 [facility] (event) [place] Tobacco use and 2016-06-08 2016-06-08 Never used Universit y of exposure 00:00:00 00:00:00 [facility] Alcohol intake 2016-06-08 2016-06-08 0 /d University of 00:00:00 00:00:00 [facility] Sex Ass[birth year] At [birth year] Universit y of 00:00:00 00:00:00 [facility] Smoking Status Start Date Stop Date Source Social History 2019-01-22 05:00:12 [facility] urena Current some day smoker 2016-06-08 00:00:00 [facility] Medications Ordered Filled Start Stop Current Ordering Indication Dosage Frequency Signature Comments Components Source Medication Medication Date Date Medication? Clinician (SIG) Name Name cefTRIAXone 2020-10- No 1000mg 1,000 mg, Univers (ROCEPHIN) 17 11-17 IV ity of 1,000 mg in 08:30: 08:01 Piggyback, [place] NaCl 0.9% 00 :00 ONCE, 1 Medical (NS) 50 mL dose, On Branc h MINI-BAG Wed09/10/21 at 0230, Administer over 30 Minutes, 50 mL
Reas on for Anti-Infec tive: Documented Infection< br>Documen ngozi Infection Site: Urine<br&g t;Duration of Therapy: Other (see Comments) ondansetron 2020-10 No 4mg 4 mg, Slow Univers (ZOFRAN 11-10 IV Push, ity of (PF)) 06:45: 05:54 ONCE, 1 [place] injection 4 00 :00 dose, On Medi nicky mg Wed Branch 09/10/21 at 0045, RANDA NaCl 0.9% 2020-10 No 1000mL at 999 Uni vers (NS) bolus 11-10 mL/hr, ity of infusion 05:30: 05:30 1,000 mL, Joe as 1,000 mL 00 :00 IV Medical Infusion, Branch ONCE, 1 dose, On 09/09/21 at 2330, RANDA amoxicillin 2020-10 Yes [id number] 500mg Take 1 Univers 500 mg 11-10 capsule by ity of capsule 00:00: mouth 3 [place] 00 (three) Medical times Branch daily. ondansetron 2019-10 No 4mg 4 mg, [facility] (ZOFRAN-ODT 12-01- Oral, ity of ) 15:15: 14:16 ONCE, 1 [place] disintegrat 00 :00 dose, Mon Med ical ing tablet 09/30/20 at [facility] 4 mg 0915, Routine ondansetron 2019-10- No 4mg 4 mg, [facility] ers (ZOFRAN-ODT 12-01- Oral, ity of ) 14:30: 13:32 ONCE, 1 [place] disintegrat 00 :00 dose, Mon Med ical ing tablet 09/30/20 at [facility] nc 4 mg 0830, Routine ondansetron 2019-10 Yes [id number] 4mg Take 1 Univers 4 mg 2-07 tablet by ity of disintegrat 00:00: mouth [place] ing tablet 00 every 8 Medica l (eight) Branch hours as needed for Nausea and Vomiting (N/V). ondansetron 2019-10 Yes [id number] 4mg Take 1 Univers 4 mg 2-07 tablet by ity of disintegrat 00:00: mouth [place] ing tablet 00 every 8 Medica l (eight) Branch hours as needed for Nausea and Vomiting (N/V). ondansetron 2019-10 Yes [id number] 4mg Take 1 Univers 4 mg 2-07 tablet by ity of disintegrat 00:00: mouth [place] ing tablet 00 every 8 Medica l (eight) Branch hours as needed for Nausea and Vomiting (N/V). ondansetron 2019-10 Yes [id number] 4mg Take 1 Univers 4 mg 2-07 tablet by ity of disintegrat 00:00: mouth [place] ing tablet 00 every 8 Medica l (eight) Branch hours as needed for Nausea and Vomiting (N/V). ciprofloxac Yes 500 mg = 1 Memoria in 500 mg 4-04 tab, PO, l oral tablet 17:35: [id number], X [place] 00 4 day, # 8 tab, 0 Refill(s) Ondansetron Yes 4 mg = 1 Me moria 4 MG Oral 4-04 tab, PO, l Tablet 17:35: Q6H, PRN [place] [Zofran] 00 Nausea/Vom iting, # 20 tab, [...] day, # 12 tab, 0 Refill(s) ciprofloxac 2018- Yes 500 mg = 1 Memoria in 500 mg 4-04 tab, PO, l oral tablet 17:35: [id number], X [place] 00 4 day, # 8 tab, 0 Refill(s) Ondansetron 2018- Yes 4 mg = 1 Me moria 4 MG Oral 4-04 tab, PO, l Tablet 17:35: Q6H, PRN [place] [Zofran] 00 Nausea/Vom iting, # 20 tab, [...] s with feeding tube less than 14 Portuguese (Dobhoff, J-tube etc) and pediatric and patients. Potassium No Notes: Memori a Chloride 4-03 (Same as: l 13:26: K-Dur 20) [place] "Do Not Crush" Give with food and full glass of water For patients unable to swallow tablet, dissolve in one half glass of water. Allow about 2 minutes for the tablets to disintegra te. Stir before giving to prepare slurry and administer . Please exclude Patient s with feeding tube less than 14 Portuguese (Dobhoff, J-tube etc) and pediatric and patients. Strattera No 0.5 mg/kg, Me moria 01-24 Route: PO, l 14:00: QAM, [place] Dosing Weight 75, kg, Start date: 01/24/19 9:00:00 CDT, Duration: 30 day, Stop date: 02/22/19 9:00:00 CDT Strattera No 0.5 mg/kg, Me moria 402 Route: PO, l 14:00: QAM, Yon[place] 00 Dosing Weight 75, kg, Start date: 01/24/19 9:00:00 CDT, Duration: 30 day, Stop date: 02/22/19 9:00:00 CDT lithium No Notes: Do Memor ia 4-02 not crush l 02:00: or chew. (Same as: Eskalith-C R) lithium No Notes: Do Memor ia 4-02 not crush l 02:00: or chew. (Same as: Eskalith-C R) Risperdal No Notes: Memori a 4- (Same [...] date: 02/22/19 14:17:00 CDT, 1.84, m2 Clonazepam 20190 No Notes: Memor ia 4- (Same As: l 18:00: KlonoPIN) [place] 00 Clonazepam No Notes: Memor ia 4- (Same As: l 18:00: KlonoPIN) Yonis 00 Flagyl No Notes: Memoria 4- (Same as: l 15:00: Flagyl) Yonis 00 Take with food/ avoid alcohol Cipro No Notes: May Memori a 4- interfere l 15:00: w/enteral Yonis 00 feedings - Take 1 hr before or 2 hrs after antacids, dairy pdt & minerals. On empty stomach. Flagyl No Notes: Memoria 4- (Same as: l 15:00: Flagyl) Yonis 00 Take with food/ avoid alcohol Cipro No Notes: May Memori a 4- interfere l 15:00: w/enteral Yonis 00 feedings [...] MG 4-01 PO, l Oral Tablet 14:20: [id number], 0 Yonis [Cipro] 00 Refill(s) potassium Yes 40 mEq, Memor ia chloride 20 4-01 PO, ONCE, l mEq oral 14:20: 0 [place] tablet, 00 Refill(s) extended release Metronidazo No 500 mg, Mem oria le 500 MG 4-01 PO, l Oral Tablet 14:20: [id number], 0 H ermann [Flagyl] 00 Refill(s) Ciprofloxac No 500 mg, Mem oria in 500 MG 4-01 PO, l Oral Tablet 14:20: [id number], 0 Yonis [Cipro] 00 Refill(s) Potassium No Notes: Memori a Chloride - (Same as: l 14:17: K-Dur 20) [place] 00 "Do Not Crush" Give with food and full glass of water For patients unable to swallow tablet, dissolve in one half glass of water. Allow about 2 minutes for the tablets to disintegra te. Stir before giving to prepare slurry and administer . Please exclude Patient s with feeding tube less than 14 Portuguese (Dobhoff, J-tube etc) and pediatric and patients. Potassium No Notes: Memori a Chloride 01-23 (Same as: l 14:17: K-Dur ) [place] 00 "Do Not Crush" Give with food and full glass of water For patients unable to swallow tablet, dissolve in one half glass of water. Allow about 2 minutes for the tablets to disintegra te. Stir before giving to prepare slurry and administer . Please exclude Patient s with feeding tube less than 14 Portuguese (Dobhoff, J-tube etc) and pediatric and patients. [...] 3-31 PO, QAM, 0 l 21:08: Refill(s) 00 lithium 450 Yes 450 mg = [...] oria 3-31 to exceed l 15:03: 400mg/day. [place] 00 (Same As: Ultram) normal No 1,000 mL, Memori a saline 0.9% 01-22 Rate: 150 l IV 1,000 mL 09:48: ml/hr, Infuse over: 6.7 hr, Route: IV, Dosing Weight 75.994 kg, Total Volume: 1,000, Start date: 01/22/19 4:48:00 CDT, Duration: 30 day, Stop date: 02/21/19 4:47:00 CDT normal 2019-0 No 1,000 mL, Memori a saline 0.9% 01-22 Rate: 150 l IV 1,000 mL 09:48: ml/hr, Infuse over: 6.7 hr, Route: IV, Dosing Weight 75.994 kg, Total Volume: 1,000, Start date: 01/22/19 4:48:00 CDT, Duration: 30 day, Stop date: 02/21/19 4:47:00 CDT Ondansetron 2018-0 No Notes: Estrada doni 3-31 (Same as: l 09:47: Kurtis) Yonis MEDICATION WASTE Product Size: 4 mg Product Wasted: ___ mg Glucagon 2018-0 No 1 mg, Memoria 01-22 Route: IM, l 09:47: Drug form: [place] 00 PDR/INJ, PRN, Dosing Weight 75.994, kg, [...] Estrada doni 3-31 (Same as: l 09:47: Kurtis) Yonis 00 MEDICATION WASTE Product Size: 4 mg Product Wasted: ___ mg Glucagon 2019-0 No 1 mg, Memoria - Route: IM, l 09:47: Drug form: Yon[place] 00 PDR/INJ, PRN, Dosing Weight 75.994, kg, PRN Blood Glucose Results, Start date: 01/22/19 4:47:00 CDT, Duration: 30 day, Stop date: 02/21/19 4:46:00 CDT Dextrose 2018- No 12.5 gm, Memor ia 50% Syringe 3-31 25 mL, l 09:47: Route: [place] 00 IVP, Drug Form: INJ, Dosing Weight [...] moria IV 3-31 1,000 l 08:52: ml/hr, [place] 00 Infuse Over: 1 hr, Route: IV, 1,000, Drug form: INJ, ONCE, Priority: STAT, Dosing Weight 75.994 kg, Start date: 01/22/19 3:52:00 CDT, Stop date: 01/22/19 3:52:00 CDT NS (Bolus) No 1,000 mL, Me moria IV 3-31 1,000 l 08:52: ml/hr, [place] 00 Infuse Over: 1 hr, Route: IV, [...] moria IV - 1,000 l 05:44: ml/hr, Infuse Over: 1 hr, Route: IV, 1,000, Drug form: INJ, ONCE, Priority: STAT, Dosing Weight 75.994 kg, Start date: 01/22/19 0:44:00 CDT, Stop date: 01/22/19 0:44:00 CDT NS (Bolus) No 1,000 mL, Me moria IV - 1,000 l 05:44: ml/hr, Infuse Over: 1 hr, Route: IV, 1,000, Drug form: INJ, ONCE, Priority: STAT, Dosing Weight 75.994 kg, Start date: 01/22/19 0:44:00 CDT, Stop date: 01/22/19 0:44:00 CDT Zofran No Notes: Memoria -31 (Same as: l 04:52: Zofran) MEDICATION WASTE Product Size: 4 mg Product Wasted: ___ mg Saline No Notes: Memoria Flush 0.9% - Same as: l 04:52: BD Posiflush Sterile Zofran No Notes: Memoria 3-31 (Same as: l 04:52: Zofran) MEDICATION WASTE Product Size: 4 mg Product Wasted: ___ mg Saline No Notes: Memoria Flush 0.9% 01-22 Same as: l 04:52: BD [place] Posiflush Sterile NS (Bolus) No 1,000 mL, Me moria IV 3-31 1,000 l 04:51: ml/hr, [place] 00 Infuse Over: 1 hr, Route: IV, 1,000, Drug form: INJ, ONCE, Priority: STAT, Dosing Weight 75.994 kg, Start date: 01/21/19 23:51:00 CDT, Stop date: 01/21/19 23:51:00 CDT NS (Bolus) No 1,000 mL, Me moria IV - 1,000 l 04:51: ml/hr, [place] 00 Infuse Over: 1 hr, Route: IV, 1,000, Drug form: INJ, ONCE, Priority: STAT, Dosing Weight 75.994 kg, Start date: 01/21/19 23:51:00 CDT, Stop date: 01/21/19 23:51:00 CDT ondansetron 2017-0 Yes 4mg Take 1 Univ ers (ZOFRAN, 1-27 tablet by ity of HYDROCHLORI 00:00: mouth [place] DE,) 4 mg 00 every 8 Medical tablet (eight) Branch hours. ondansetron 2017-0 Yes 4mg Take 1 Univ ers (ZOFRAN, 1-27 tablet by ity of HYDROCHLORI 00:00: mouth [place] DE,) 4 mg 00 every 8 Medical tablet (eight) Branch hours. ondansetron 2017-0 Yes 4mg Take 1 Univ ers (ZOFRAN, 1-27 tablet by ity of HYDROCHLORI 00:00: mouth [place] DE,) 4 mg 00 every 8 Medical tablet (eight) Branch hours. ondansetron 2017-0 Yes 4mg Take 1 Univ ers (ZOFRAN, 1-27 tablet by ity of HYDROCHLORI 00:00: mouth [place] DE,) 4 mg 00 every 8 Medical tablet (eight) Branch hours. ibuprofen 2016-0 Yes 200mg Take 200 Uni vers (ADVIL) 200 8-15 mg by ity of mg tablet 19:02: mouth [place] 27 every 6 Medical (six) Branch hours as needed. CLONAZEPAM 2015-0 Yes Take by Uni vers (KLONOPIN 8-15 mouth. ity of ORAL) 19:02: [address] Branch CITALOPRAM 2016-0 Yes Take by Uni vers HYDROBROMID 8-15 mouth. ity of E 19:02: [place] (CITALOPRAM 27 Medical ORAL) Branch ibuprofen 2016-0 Yes 200mg Take 200 Uni vers (ADVIL) 200 8-15 mg by ity of mg tablet 14:02: mouth [place] [id number] every 6 Medical (six) Branch hours as needed. CLONAZEPAM 2016-0 Yes Take by Uni vers (KLONOPIN 8-15 mouth. ity of ORAL) 14:02: [place] [address] Medical Branch CITALOPRAM 2016-0 Yes Take by Uni vers HYDROBROMID 8-15 mouth. ity of E 14:02: [place] (CITALOPRAM 27 Medical ORAL) Branch ibuprofen 2016-0 Yes 200mg Take 200 Uni vers (ADVIL) 200 8-15 mg by ity of mg tablet 14:02: mouth [place] [id number] every 6 Medical (six) Branch hours as needed. CLONAZEPAM 2016-0 Yes Take by Uni vers (KLONOPIN 8-15 mouth. ity of ORAL) 14:02: [address] Branch CITALOPRAM 2016-0 Yes Take by Uni vers HYDROBROMID 8-15 mouth. ity of E 14:02: [place] (CITALOPRAM 27 Medical ORAL) Branch ibuprofen 2016-0 Yes 200mg Take 200 Uni vers (ADVIL) 200 8-15 mg by ity of mg tablet 14:02: mouth [place] [id number] every 6 Medical (six) Branch hours as needed. CLONAZEPAM 2016-0 Yes Take by Uni vers (KLONOPIN 8-15 mouth. ity of ORAL) 14:02: [address] Branch CITALOPRAM 2016-0 Yes Take by Uni vers HYDROBROMID 8-15 mouth. ity of E 14:02: [place] (CITALOPRAM 27 Medical ORAL) Branch misoprostol 2016-0 Yes 200ug Take 1 Uni vers (CYTOTEC) 8-15 tablet by ity o f 200 mcg 00:00: mouth [place] tablet 00 SEE-INSTRU Medical CTIONS. Branch Take one tab the night before and one tab the morning of procedure misoprostol 2016-0 Yes 200ug Take 1 Uni vers (CYTOTEC) 8-15 tablet by ity o f 200 mcg 00:00: mouth [place] tablet 00 SEE-INSTRU Medical CTIONS. Branch Take one tab the night before and one tab the morning of procedure misoprostol 2015-0 Yes 200ug Take 1 Uni vers (CYTOTEC) 8-15 tablet by ity o f 200 mcg 00:00: mouth [place] tablet 00 SEE-INSTRU Medical CTIONS. Branch Take one tab the night before and one tab the morning of procedure misoprostol 2015-0 Yes 200ug Take 1 Uni vers (CYTOTEC) 8-15 tablet by ity o f 200 mcg 00:00: mouth [place] tablet 00 SEE-INSTRU Medical CTIONS. Branch Take one tab the night before and one tab the morning of procedure butalbital- 2016-0 Yes TK 1 TO 2 U nivers acetaminoph 8-01 T PO Q 8 H it y of en-caff 00:00: PRN. [place] (ESGIC) 00 Medical 50-325-40 Branch mg tablet butalbital- 2016-0 Yes TK 1 TO 2 U nivers acetaminoph 8-01 T PO Q 8 H it y of en-caff 00:00: PRN. [place] (ESGIC) 00 Medical 50-325-40 Branch mg tablet butalbital- 2016-0 Yes TK 1 TO 2 U nivers acetaminoph 8-01 T PO Q 8 H it y of en-caff 00:00: PRN. [place] (ESGIC) 00 Medical 50-325-40 Branch mg tablet butalbital- 2016-0 Yes TK 1 TO 2 U nivers acetaminoph 8-01 T PO Q 8 H it y of en-caff 00:00: PRN. [place] (ESGIC) 00 Medical 50-325-40 Branch mg tablet dextroamphe 2015-0 Yes TK 1 T PO U nivers tamine-amph 7-20 BID. ity of etamine 00:00: [place] (ADDERALL) 00 Medical 20 mg Branch tablet dextroamphe 2015-0 Yes TK 1 T PO U nivers tamine-amph 7-20 BID. ity of etamine 00:00: [place] (ADDERALL) 00 Medical 20 mg Branch tablet dextroamphe 2015-0 Yes TK 1 T PO U nivers tamine-amph 7-20 BID. ity of etamine 00:00: [place] (ADDERALL) 00 Medical 20 mg Branch tablet dextroamphe 0 Yes TK 1 T PO U nivers tamine-amph 7-20 BID. ity of etamine 00:00: [place] (ADDERALL) 00 Medical 20 mg Branch tablet [...] 00 times Medical daily with Branch meals. amoxicillin 2014-10 Yes 500mg Take 1 Cap [...] 00 times Medical daily with Branch meals. amoxicillin 2014-10 Yes 500mg Take 1 Cap [...] 00 times Medical daily with Branch meals. amoxicillin 2014-10 Yes 500mg Take 1 Cap [...] Time Observation Value Comments Source Systolic blood 2021-09-10 08:01:00 138 mm[Hg] Univer sity of pressure [facility] Diastolic blood 2021-09-10 08:01:00 97 mm[Hg] Unive rsity of [facility] Heart rate 2021-09-10 08:01:00 87 /min [facility] Respiratory rate 2021-09-10 08:01:00 20 /min [facility] Oxygen saturation in 2021-09-10 08:01:00 98 /min University of Arterial blood by [place] [employer] nicky Pulse oximetry Branch Body temperature 2021-09-10 04:28:51 37.17 Ruthann [facility] Body height 2021-09-10 04:26:00 154.9 cm [facility] Body weight 2021-09-10 04:26:00 81.647 kg [facility] BMI 2021-09-10 04:26:00 34.01 kg/m2 [facility] Systolic blood 2021-09-09 20:06:00 150 mm[Hg] Univer sity of [facility] Diastolic blood 2021-09-09 20:06:00 89 mm[Hg] Unive rsity of [facility] Heart rate 2021-09-09 20:06:00 108 /min [facility] Body temperature 2021-09-09 20:06:00 37.22 Ruthann [facility] Respiratory rate 2021-09-09 20:06:00 18 /min [facility] Oxygen saturation in 2021-09-09 20:06:00 99 /min University Arterial blood by [employer] nicky Pulse oximetry Branch Body weight 2021-09-09 20:05:00 81.647 kg Universi ty [facility] [place] [facility] BMI 2021-09-09 20:05:00 32.40 kg/m2 [facility]i ty [facility] [place] [facility] Systolic blood 2020-09-30 14:00:00 126 mm[Hg] Univer sity of pressure [place] [facility] Diastolic blood 2020-09-30 14:00:00 84 mm[Hg] Unive rsity of pressure [place] [facility] Heart rate 2020-09-30 14:00:00 79 /min Universi ty of [place] [facility] Oxygen saturation in 2020-09-30 14:00:00 98 /min University of Arterial blood by [facility] Pulse oximetry Branch Body temperature 2020-09-30 13:26:00 37.22 Ruthann Univ ersity of [place] [facility] Respiratory rate 2020-09-30 13:26:00 16 /min Univ ersity of [place] [facility] Body weight 2020-09-30 13:26:00 72.576 kg [facility]i ty [facility] [place] [facility] BMI 2020-09-30 13:26:00 28.80 kg/m2 [facility]i ty [facility] [place] [facility] Systolic blood 2020-09-30 14:00:00 126 mm[Hg] Univer sity of pressure [place] [facility] Diastolic blood 2020-09-30 14:00:00 84 mm[Hg] Unive rsity of pressure [place] [facility] Heart rate 2020-09-30 14:00:00 79 /min Universi ty of [place] [facility] Oxygen saturation in 2020-09-30 14:00:00 98 /min University of Arterial blood by [facility] nicky Pulse oximetry Branch Body temperature 2020-09-30 13:26:00 37.22 Ruthann Univ ersity of [place] [facility] Respiratory rate 2020-09-30 13:26:00 16 /min Univ ersity of [place] [facility] Body weight 2020-09-30 13:26:00 72.576 kg [facility]i ty [facility] [place] [facility] BMI 2020-09-30 13:26:00 28.80 kg/m2 [facility] ty [facility] [place] [facility] Temperature Oral (F) 2019-01-28 01:16:00 98.6 F [facility] Systolic (mm Hg) 2019-01-28 01:16:00 Estrada rial [place] Diastolic (mm Hg) 2019-01-28 01:16:00 Mem orial [place] Heart Rate 2019-01-28 01:16:00 [facility] [place] Respitory Rate 2019-01-28 01:16:00 Memori al Yonis Systolic (mm Hg) 2019-01-27 20:42:00 Estrada rial [place] Diastolic (mm Hg) 2019-01-27 20:42:00 Mem orial [place] Heart Rate 2019-01-27 20:42:00 [facility] [place] Respitory Rate 2019-01-27 20:42:00 Memori al [place] Temperature Oral (F) 2019-01-27 20:42:00 98.5 F [facility] [place] Systolic (mm Hg) 2019-01-27 17:00:00 Estrada rial [place]onis Diastolic (mm Hg) 2019-01-27 17:00:00 Mem orial [place] Temperature Oral (F) 2019-01-27 17:00:00 98.5 F [facility] [place] Heart Rate 2019-01-27 17:00:00 [facility] [place] Respitory Rate 2019-01-27 17:00:00 [facility] al [place] Height 2019-01-22 14:35:[facility] BMI Calculated 2019-01-22 14:35:00 Memori al [place] Weight 2019-01-22 14:35:00 [facility] [place] Weight 2019-01-22 04:34:00 [facility] [place] Procedures Procedure Date / Time Performing Clinician Source Performed URINALYSIS 2021-09-10 06:03:00 Neena Bradford [facility] URINE DRUG (IMMUNOASSAY) 2021-09-10 06:03:00 Neena Bradford [facility] SCREEN W/O REFLEX XR CHEST 1 VW 2021-09-10 04:57:30 Neena Bradford [facility] CREATINE KINASE 2021-09-10 04:39:00 Neena Bradford [facility] MAGNESIUM 2021-09-10 04:39:00 Neena Bradford [facility] TROPONIN I 2021-09-10 04:39:00 Neena Bradford [facility] COMP. METABOLIC PANEL 2021-09-10 04:39:00 Neena Bradford [facility] ([id number]) Medical [place] CBC WITH DIFF 2021-09-10 04:39:00 [facility] 2021-09-10 04:39:00 Neena Bradford [facility] ACTIVATED PARTIAL 2021-09-10 04:39:00 Neena Bradford [facility] 2021-09-10 04:39:00 Neena Bradford [facility] COVID-19 (ID NOW RAPID 2021-09-10 04:39:00 Neena Bradford [facility] TESTING) Medical Branch TROPONIN I 2021-09-09 21:49:00 DumontIain buenrostro [facility] COMP. METABOLIC PANEL 2021-09-09 21:49:00 Iain Dumont [facility] ([id number]) Medical Branch LITHIUM 2021-09-09 21:49:00 [facility] CBC WITH DIFF 2021-09-09 21:49:00 [facility] CONSENT/REFUSAL FOR 2021-09-09 19:51:22 Doctor Unassigned, No Un [facility] DIAGNOSIS AND TREATMENT Name [facility] URINALYSIS 2020-09-30 13:27:00 Jackson, Chuy [facility] ADC,CLC OR LCC ONLY - 2020-09-30 13:27:00 Chuy Jackson [facility] INFLUENZA A & B DIRECT Medical B ranch ANTIGEN COVID-19 (ID NOW RAPID 2020-09-30 13:27:00 Chuy Jackson [facility] TESTING) [facility] Plan of Care Planned Activity Planned Date Details Comments Source Encounters Start End Encounter Admission Attending Care Care Encounter Source Date/Time Date/Time Type Type Clinicians Facility Department ID 2021-09-08 Outpatient Humaira-Mbayo [facility] [id number] 02:24:16 _A_AH [id number] Family Practic e 2021-09-07 Outpatient Humaira-Mbayo [facility]FP VFP [id number] 22:13:27 _A_AH [id number] Family Practic e 2021-09-07 Outpatient Humaira-Mbayo [facility]FP [facility] [id number] 13:23:42 _A_ [id number] Family Practic e 2021-09-06 Outpatient Humaira-Mbayo VFP [facility] [id number] [facility] 04:23:58 _A_AH [id number] Family Practic e 2021-09-05 Outpatient Bernadine VFP [facility] [id number] - [facility] 19:22:48 _A_AH [id number] Family Practic e 2019-01-22 Inpatient E [facility] MED [id number] [address] W 04:39:00 2021-09-09 2021-09-10 Emergency Sanchez NVANÍBAL [id number] Univers 22:20:00 03:02:00 Neena NICO 350.1.13.10 i ty of [place] 4.2.7.2.686 [facility] [place] [id number] [address] 2021-09-09 2021-09-10 Emergency X SANCHEZ [facility] ERT [id number] Univers 22:20:00 03:02:00 NEENA tubbs [facility] 2021-09-09 2021-09-09 Emergency X HANSA [facility] ERT [id number] Univers 14:07:00 17:35:[address] [facility] 2021-09-09 2021-09-09 Emergency Hansa [facility] [id number] Univers 14:07:00 17:35:00 Iain Jovani NICO 350.1.13.10 i ty of [place] 4.2.7.2.686 [facility] [place] [id number] [address] 2021-09-09 2021-09-09 Orders Doctor BELKYS [id number] [id number] Univers 00:00:00 00:00:00 Only Unassigned, LANA 350.1.13.10 ity of [place] [facility] 4.2.7.2.686 Joe as [id number] [place] [address] [address] 2020-09-30 2020-09-30 DENIA Oneal [id number] 07:22:00 08:18:00 Chuy Jimenez 350.1.13.10 Rew 4.2.7.2.686 [place] [id number] 2020-09-30 2020-09-30 DENIA Oneal 1.2.954.856 [id number] Univers 07:22:00 08:18:00 Chuy Jimenez 350.1.13.10 i [place] 4.2.7.2.686 [facility] [id number] [facility] [address] 2020-09-30 2020-09-30 Emergency X SINGER [facility] ERT [id number] Univers 07:22:00 07:22:00 CHUY tubbs [facility] 2020-03-04 2020-03-14 Inpatient 3 Chente [facility] PSY [id number] 15:38:00 15:25:00 [facility] 2019-01-22 2019-01-28 Inpatient [facility] [id number] Memoria 04:33:00 04:40:00 r Yonis 00 l [facility] 2018-02-21 2018-02-20 [id number] 14:48:00 13:18:00 [facility] Results Test Description Test Time Test Comments Results Result Comments Source TROPONIN I 2021-09-10 05:26:53 Test Item Value Reference Range Interpretation Comme nts TROPONIN I (test code = 0.003 ng/mL See_Comment [Au tomated message] The 7505857103) system which ge nerated this result tra nsmitted reference range : <=0.034. The reference r katie was not used to int erpret this result as normal/abnormal . PERRY (test code = PERRY) Reference (Normal) Range (defined by the 99th percentile reference limit): <= 0.034 ng/mL Note: Cardiac troponin begins to rise 3-4 hours after the onset of ischemia. Repeat in 4-6 hours if the sample was drawn within 3-4 hours of the onset of the symptom and found normal. Diagnosis of myocardial injury is made with acute changes in cTn concentrations with at least one serial sample above the 99th percentile upper reference limit (URL), taken together with the patient's clinical presentation. Biotin has been reported to cause a negative bias, interpret results relative to patient's use of biotin. Lab Interpretation Normal (test code = 49972-8) [facility] [id number]-[id number] 05:24:16 Test Item Value Reference Range Interpretation Comments NT-proBNP (test code 35 pg/mL See_Comment [Autom ated = 9608236763) message] The system which generated this result transmitted reference range : <=125. The reference range was not used to interpret this result as normal/abnormal . PERRY (test code = PERRY) Biotin has been reported to cause a negative bias, interpret results relative to patient's use of biotin. Lab Interpretation Normal (test code = 02444-7) [facility]2021-[facility]-17 05:16:51 Test Item Value Reference Range Interpretation Comments MAGNESIUM (test code = 6257785774) 1.8 mg/dL 1.7-2.4 Lab Interpretation (test code = Normal 04808-9) [facility]. METABOLIC PANEL (47686)2021-09-10 05:16:31 Test Item Value Reference Range Interpretation Comments NA (test code = 139 mmol/L 135-145 0028967441) K (test code = 4.0 mmol/L 3.5-5.0 3917911465) CL (test code = 108 mmol/L 98-108 3098525324) CO2 TOTAL (test code 25 mmol/L 23-31 = 6908112487) AGAP (test code = 2-16 6878329545) BUN (test code = 14 mg/dL 7-23 2275693137) GLUCOSE (test code = 88 mg/dL 70-110 3558080960) CREATININE (test code 0.89 mg/dL 0.50-1.04 = 6076180154) TOTAL BILI (test code 0.5 mg/dL 0.1-1.1 = 1261663429) CALCIUM (test code = 10.3 mg/dL 8.6-10.6 6027634161) T PROTEIN (test code 6.9 g/dL 6.3-8.2 = 9550968543) ALBUMIN (test code = 4.3 g/dL 3.5-5.0 9729055329) ALK PHOS (test code = 72 U/L 34-122 1562344975) ALTv (test code = 17 U/L 5-35 1742-6) AST(SGOT) (test code 29 U/L 13-40 = 2767491957) eGFR (test code = mL/min/1.73m2 1627898151) PERRY (test code = PERRY) Association of Glomerular Filtration Rate (GFR) and Staging of Kidney Disease* + + +- +| GFR (mL/min/1.73 m2) ?| With Kidney Damage ?| ?Without Kidney Damage+ ------+ ----+ ------+| ?>90 ?| ?Stage one ?| ? Normal ?+ -+ + -+| ?60-89 ?| ?Stage two ?| ? Decreased GFR ? + + +- +| ?30-59 ?| ?Stage three ?| ? Stage three ? + + +- +| ?15-29 ?| ?Stage four ? | ? Stage four ?+ -+ + -+| ?<15 (or dialysis) ? ?| ?Stage five ? | ? Stage five ?+ -+ + -+ *Each stage assumes the associated GFR level has been in effect for at least three months. ?Stages 1 to 5, with or without kidney disease, indicate chronic kidney disease. Notes: Determination of stages one and two (with eGFR >59mL/min/1.73 m2) requires estimation of kidney damage for at least three months as defined by structural or functional abnormalities of the kidney, manifested by either:Pathological abnormalities or Markers of kidney damage (including abnormalities in the composition of the blood or urine or abnormalities in imaging tests). [facility]CREATINE [id number] 05:16:16 Test Item Value Reference Range Interpretation Comments CK (test code = 6476707492) 267 U/L 33-194 H Lab Interpretation (test code = Abnormal 56418-6) [facility]ACTIV[facility] PARTIAL THRMPLAS [id number] 05:05:32 Test Item Value Reference Range Interpretation Comments APTT Patient (test See_Comment [Automat ed code = 3173-2) message] The system which generated this result transmitted reference range : 23 - 38 Seconds . The reference range was not used to interpr et this result as normal/abnormal . PERRY (test code = PERRY) The [facility] patient population mean normal value for aPTT is 30 seconds. Lab Interpretation Normal (test code = 69165-7) [facility]oundPROTHROMBIN TIME / [id number] 05:03:30 Test Item Value Reference Range Interpretation Comments PROTIME PATIENT (test See_Comment [Auto mated message] code = 5964-2) The system wh ich generated this result transmitted ref erence range: 12.0 - 1 4.7 Seconds. The re ference range was not u sed to interpret this result as normal/abnor mal. INR (test code = 6301-6) Nor mal INR <1.1; Warfarin Therap eutic range 2.0 to 3. 0 or 2.5 to 3.5, dep ending upon the indica tions. Lab Interpretation (test Normal code = 20715-2) [facility] WITH [id number] 04:57:13 Test Item Value Reference Range Interpretation Comments WBC (test code = See_Comment [Automated 8890-2) message] The sy stem which generated this result transmitted reference range : 4.30 - 11.10 10*3/?L. The reference range was not used to interpret this result as normal/abnormal . RBC (test code = See_Comment [Automated 209-8) message] The sy stem which generated this result transmitted reference range : 3.93 - 5.25 10*6/?L. The reference range was not used to interpret this result as normal/abnormal . HGB (test code = 12.6 g/dL 11.6-15.0 718-7) HCT (test code = 38.7 % 35.7-45.2 4544-3) MCV (test code = 87.0 fL 80.6-95.5 787-2) MCH (test code = 28.3 pg 25.9-32.8 785-6) MCHC (test code = 32.6 g/dL 31.6-35.1 786-4) RDW-SD (test code = 41.2 fL 39.0-49.9 23755-3) RDW-CV (test code = 13.0 % 12.0-15.5 788-0) PLT (test code = See_Comment H [Automated 387-3) message] The sy stem which generated this result transmitted reference range : 166 - 358 10*3/ ?L. The reference r katie was not used to interpret this result as normal/abnormal . MPV (test code = 9.6 fL 9.5-12.9 56755-8) NRBC/100 WBC (test See_Comment [Automat ed code = 0081106936) message] The system which generated this result transmitted reference range : 0.0 - 10.0 /100 WBCs. The refer ence range was not u sed to interpret th is result as normal/abnormal . NRBC x10^3 (test code <0.01 See_Comment [Auto mated = 7090496353) message] The s ystem which generated this result transmitted reference range : 10*3/?L. The reference range was not used to interpret this result as normal/abnormal . GRAN MAT (NEUT) % 61.9 % (test code = 770-8) IMM GRAN % (test code 0.30 % = 0193231798) LYMPH % (test code = 26.0 % 736-9) MONO % (test code = 9.5 % 5905-5) EOS % (test code = 1.6 % 713-8) BASO % (test code = 0.7 % 706-2) GRAN MAT x10^3(ANC) 5.91 10*3/uL 1.88-7.09 (test code = 0731700277) IMM GRAN x10^3 (test 0.03 10*3/uL 0.00-0.06 code = 5528708276) LYMPH x10^3 (test code 2.48 10*3/uL 1.32-3.29 = 731-0) MONO x10^3 (test code 0.91 10*3/uL 0.33-0.92 = 742-7) EOS x10^3 (test code = 0.15 10*3/uL 0.03-0.39 711-2) BASO x10^3 (test code 0.07 10*3/uL 0.01-0.07 = 704-7) Lab Interpretation Abnormal (test code = 41850-1) [facility]oundJESSICA [id number] 22:24:55 Test Item Value Reference Interpretation Comments Range TROPONIN I (test 0.002 ng/mL See_Comment [Automated code = 2293782562) message] The system which generated this result transmitted reference range : <=0.034. The reference range was not used to interpret this result as normal/abnormal . PERRY (test code = Reference (Normal) PERRY) Range (defined by the 99th percentile reference limit): <= 0.034 ng/mL Note: Cardiac troponin begins to rise 3-4 hours after the onset of ischemia. Repeat in 4-6 hours if the sample was drawn within 3-4 hours of the onset of the symptom and found normal. Diagnosis of myocardial injury is made with acute changes in cTn concentrations with at least one serial sample above the 99th percentile upper reference limit (URL), taken together with the patient's clinical presentation. Biotin has been reported to cause a negative bias, interpret results relative to patient's use of biotin. Lab Interpretation Normal (test code = 64357-4) [facility]oundLITHIUM2021-11-16 22:24:34 Test Item Value Reference Range Interpretation Comments [place] (test code = <0.2 0.6-1.2 L 8393941687) PERRY (test code = PERRY) Toxic Range: ? Greater than 1.2 mmol/L Lab Interpretation (test Abnormal code = 07014-5) [facility]COMP. METABOLIC PANEL (59187)2021-09-09 22:13:54 Test Item Value Reference Range Interpretation Comments NA (test code = 139 mmol/L 135-145 7735853081) K (test code = 4.0 mmol/L 3.5-5.0 5052070055) CL (test code = 105 mmol/L 98-108 9025986808) CO2 TOTAL (test code 26 mmol/L 23-31 = 9276511894) AGAP (test code = 2-16 4259156503) BUN (test code = 11 mg/dL 7-23 8441950667) GLUCOSE (test code = 109 mg/dL 70-110 0166194010) CREATININE (test code 0.71 mg/dL 0.50-1.04 = 5806724978) TOTAL BILI (test code 0.6 mg/dL 0.1-1.1 = 8578353286) CALCIUM (test code = 10.4 mg/dL 8.6-10.6 2128461405) T PROTEIN (test code 7.6 g/dL 6.3-8.2 = 1585908065) ALBUMIN (test code = 4.7 g/dL 3.5-5.0 5044141112) ALK PHOS (test code = 78 U/L 34-122 8650445693) ALTv (test code = 19 U/L 5-35 1742-6) AST(SGOT) (test code 28 U/L 13-40 = 2524296111) eGFR (test code = mL/min/1.73m2 3788853812) PERRY (test code = PERRY) Association of Glomerular Filtration Rate (GFR) and Staging of Kidney Disease* + + +- +| GFR (mL/min/1.73 m2) ?| With Kidney Damage ?| ?Without Kidney Damage+ ------+ ----+ ------+| ?>90 ?| ?Stage one ?| ? Normal ?+ -+ + -+| ?60-89 ?| ?Stage two ?| ? Decreased GFR ? + + +- +| ?30-59 ?| ?Stage three ?| ? Stage three ? + + +- +| ?15-29 ?| ?Stage four ? | ? Stage four ?+ -+ + -+| ?<15 (or dialysis) ? ?| ?Stage five ? | ? Stage five ?+ -+ + -+ *Each stage assumes the associated GFR level has been in effect for at least three months. ?Stages 1 to 5, with or without kidney disease, indicate chronic kidney disease. Notes: Determination of stages one and two (with eGFR >59mL/min/1.73 m2) requires estimation of kidney damage for at least three months as defined by structural or functional abnormalities of the kidney, manifested by either:Pathological abnormalities or Markers of kidney damage (including abnormalities in the composition of the blood or urine or abnormalities in imaging tests). [facility] WITH [id number] 22:03:32 Test Item Value Reference Range Interpretation Comments WBC (test code = See_Comment [Automated 2290-2) message] The sy stem which generated this result transmitted reference range : 4.30 - 11.10 10*3/?L. The reference range was not used to interpret this result as normal/abnormal . RBC (test code = See_Comment [Automated 789-8) message] The sy stem which generated this result transmitted reference range : 3.93 - 5.25 10*6/?L. The reference range was not used to interpret this result as normal/abnormal . HGB (test code = 13.6 g/dL 11.6-15.0 718-7) HCT (test code = 40.8 % 35.7-45.2 4544-3) MCV (test code = 85.7 fL 80.6-95.5 787-2) MCH (test code = 28.6 pg 25.9-32.8 785-6) MCHC (test code = 33.3 g/dL 31.6-35.1 786-4) RDW-SD (test code = 40.2 fL 39.0-49.9 89883-7) RDW-CV (test code = 12.9 % 12.0-15.5 788-0) PLT (test code = See_Comment H [Automated 777-3) message] The sy stem which generated this result transmitted reference range : 166 - 358 10*3/ ?L. The reference r katie was not used to interpret this result as normal/abnormal . MPV (test code = 9.4 fL 9.5-12.9 L 10912-7) NRBC/100 WBC (test See_Comment [Automat ed code = 8154401689) message] The system which generated this result transmitted reference range : 0.0 - 10.0 /100 WBCs. The refer ence range was not u sed to interpret th is result as normal/abnormal . NRBC x10^3 (test code <0.01 See_Comment [Auto mated = 6139189452) message] The s ystem which generated this result transmitted reference range : 10*3/?L. The reference range was not used to interpret this result as normal/abnormal . GRAN MAT (NEUT) % 67.1 % (test code = 770-8) IMM GRAN % (test code 1.00 % = 6418408105) LYMPH % (test code = 21.4 % 736-9) MONO % (test code = 7.9 % 5905-5) EOS % (test code = 1.8 % 713-8) BASO % (test code = 0.8 % 706-2) GRAN MAT x10^3(ANC) 7.35 10*3/uL 1.88-7.09 H (test code = 9660487912) IMM GRAN x10^3 (test 0.11 10*3/uL 0.00-0.06 H code = 5950849398) LYMPH x10^3 (test code 2.34 10*3/uL 1.32-3.29 = 731-0) MONO x10^3 (test code 0.86 10*3/uL 0.33-0.92 = 742-7) EOS x10^3 (test code = 0.20 10*3/uL 0.03-0.39 711-2) BASO x10^3 (test code 0.09 10*3/uL 0.01-0.07 H = 704-7) Lab Interpretation Abnormal (test code = 88348-0) [facility]ADC,CLC OR LCC ONLY - INFLUENZA A & B DIRECT [id number] 14:04:00 Test Item Value Reference Range Interpretation Comments Influenza A (test code = 43855-5) Negative Negative Influenza B (test code = 12477-4) Negative Negative Lab Interpretation (test code = Normal 61152-5) [facility]OVID[facility] (ID NOW RAPID TESTING)2020-09-30 14:03:00 Test Item Value Reference Range Interpretation Comments SARS-CoV-2 Rapid ID NOW Not Detected Not Detected (test code = 43301-0) PERRY (test code = PERRY) ID NOW COVID-19 Assay is an isothermal nucleic acid amplification test intended for the qualitative detection of nucleic acid from SARS-CoV-2 viral RNA in nasopharyngeal (FENCE [employer]CTURE SUPERVISOR) specimens. It is used under Emergency [...] indicated. Lab Interpretation Normal (test code = 88665-0) [facility]INALYSIS2020-12-07 13:55:00 Test Item Value Reference Range Interpretation Comments APPEARANCE (test code = Hazy Clear A 8057852746) COLOR (test code = Yellow Yellow 0644187994) PH (test code = 4.8-8.0 7482882886) SP GRAVITY (test code = 1.003-1.030 9735574612) GLU U QUAL (test code = Normal Normal 7660131781) BLOOD (test code = Negative Negative 1123524141) KETONES (test code = 5 mg/dL Negative A 0343610047) PROTEIN (test code = Negative Negative 2887-8) UROBILIN (test code = 2.0 mg/dL Normal A 4889526837) BILIRUBIN (test code = Negative Negative 9137206290) NITRITE (test code = Negative Negative 6084887392) LEUK ROZINA (test code = 25/uL Negative A 5271335918) RBC/HPF (test code = See_Comment [Autom ated message] 0124524899) The system Fenerg[employer] generated this result transmit ngozi reference range : 0 - 3 HPF. The refe rence range was not u sed to interpret th is result as normal/abnormal . WBC/HPF (test code = See_Comment [Autom ated message] 0003709379) The system Fenergo generated this result transmit ngozi reference range : 0 - 5 HPF. The refe rence range was not u sed to interpret th is result as normal/abnormal . BACTERIA (test code = Few Negative A 8499148626) MUCOUS (test code = Slight Negative LPF A 3319751106) SQ EPITH (test code = HPF 6753586437) Lab Interpretation (test Abnormal code = 96795-2) [facility]oundRPR Oeqogtwvbiq5285-92-25 16:42:24 Test Item Value Reference Range Interpretation [...] = 10-24-2020 N Expiration Dt) Thyroid Stimulating Lyuyrgi7404-71-30 08:35:16 Test Item Value Reference Range Interpretation Comments TSH (test code = TSH) 1.170 mIU/mL 0.270-4.200 Lipid Zkqcm2843-47-97 08:21:19 Test Item Value Reference Range Interpretation Comments Cholesterol Total 254 mg/dL 0-200 H RISK OF HE ART (test code = DISEASEPublishe d by Cholesterol Total) [employer] Cathie lyte Optimal Borderl ine [...] calculation is LDL/HDL Ratio=L DL Calc/HDL Chol TOMDVLEDNKVO9793-46-03 08:24:008.6[facility] LubvywoISBHHIVOVHJC5338-97-89 08:24:44853Wkzxcpuj FopkhooEXYBPOWOUWQS2846-70-97 08:24:0027[facility] Yonis XJBWBVDJZMXH5508-03-60 08:24:37483Dfufyase NpyasigFIFPXDRREHZV0634-97-58 08:24:003.6[facility] LeofrzkEQZTJSPWDITE3630-70-93 08:24:000.70[facility] [place] WAOISWTDSANH4090-70-00 08:24:008.4[facility] PnezgsbCDAMQJKWHTOO0874-15-97 08:24:49874Lnxfkdqj UhjrzprUHXNLQAHCDVV9084-98-13 08:24:0086[facility] FFHMIYETJPUP2893-01-36 08:24:006[facility] RnwmpegXCVQPEWYUR0929-98-60 08:24:00 11.6[facility] RaisveeXSXXATSWLI8533-70-70 08:24:003.78[facility]annHEMATOLOGY 2019-01-26 08:24:0013.3[facility] OqefrflDSTMOTQKYW7348-23-16 08:24:0034.0[facility] VdbtfotLLANIXZHNB4763-97-70 08:24:006.3[facility] VcomzwjICCSWVJUFN1874-75-03 08:24:00 Test Item Value Reference Range Interpretation Comments MCH (test code = MCH) 30.7 pg 27.0-31.0 [facility] YwrogwbTYCNCRHKTC8029-86-35 08:24:0090.3[facility]annHEMATOLOGY 2019-01-26 08:24:0034.2[facility] ZpudlgyOXXQYAZEVR5174-54-59 08:24:64681Iuasxkss EnfnhtdYPCIWZUGGZ5814-13-92 08:24:007.5[facility] RcvpvqsBLNTTPNNOAML6269-13-77 08:24:008.6[facility] JoqdznoLLTVSACXWDNW6670-12-53 08:24:52583Bwuxkltt Yonis CFIIFCAFURSX8499-64-25 08:24:0027[facility] AqivfcmLMZQBOOWZUFX6317-60-67 08:24:00 139[facility] ZnxxzikVQUKWMKAOCWF1411-97-80 08:24:003.6[facility] RGJVQMMQQONA5726-08-67 08:24:000.70[facility] OdxsguuPLAHDTRJNOMB7352-99-04 08:24:008.4[facility] NxfhgqtMZPRUIZZGFLV4282-21-61 08:24:47652Wlpgwfya [place] UBPEGTZPBNHS6014-33-85 08:24:0086[facility] IkaqgmvWJTDVIQHWGSZ7686-72-69 08:24:00 6[facility] DpsseulQIHQJGKXSA7786-56-69 08:24:0011.6[facility] HermannHEMATOLOGY 2019-01-26 08:24:003.78[facility] IdauklyKTLXVQSYDZ4782-16-41 08:24:0013.3[facility] BipyrkjUNISQLRDXM3555-06-48 08:24:0034.0[facility] YecbbvzPOGZWXDQWH4557-00-45 08:24:006.3[facility] YrmcizvOOZNIPVSQC6809-12-30 08:24:00 Test Item Value Reference Range Interpretation Comments MCH (test code = MCH) 30.7 pg 27.0-31.0 [facility] ZhgzxnnZSLWFRICXU8323-39-74 08:24:0090.3[facility]annHEMATOLOGY 2019-01-26 08:24:0034.2[facility] UnssozqCRZWAHZENK4848-36-78 08:24:11204Zauaeofh BrjasmkJMOPJWXLJP9444-12-80 08:24:007.5[facility] HermannCHEM FKPCV0709-45-78 09:14:04947Abhiqncc HermannCHEM SBTOR0387-52-52 09:14:008.5[facility] HermannCHEM DMJPX9338-96-58 09:14:0013.3[facility] HermannCHEM ITWVZ9495-05-44 09:14:0024 [facility] HermannCHEM BLHUZ1039-88-93 09:14:66877Oxmsxjer HermannCHEM PANEL 2019-01-25 09:14:0081[facility] HermannCHEM NWNKZ3471-80-96 09:14:002[facility] HermannCHEM EMBDY8824-40-01 09:14:003.3[facility] HermannCHEM IGYPB7740-68-06 09:14:000.60[facility] HermannCHEM AQBON9074-77-49 09:14:88184Xaitbsac HermannCHEM UHNBU0285-59-27 09:14:60153Izxeymcw HermannCHEM GIROV5717-49-35 09:14:008.5 [facility]annCHEM FYAVG4756-32-68 09:14:0013.3[facility] HermannCHEM PANEL 2019-01-25 09:14:0024[facility] HermannCHEM TGRYS4702-70-41 09:14:62680Bbrcjovs HermannCHEM OCLPJ0674-98-19 09:14:0081[facility] HermannCHEM IDMGW0252-15-75 09:14:002[facility] HermannCHEM OSPEY0446-84-46 09:14:003.3[facility] HermannCHEM XHAUA9770-79-92 09:14:000.60[facility] HermannCHEM CZYHC2742-22-06 09:14:88679 [facility]annMOLECULAR YPDUVOKXAO5986-03-05 16:22:00Negative (01/23/19 11:22 AM)[facility] HermannMOLECULAR NHEBKFOSJE7207-92-34 16:22:00Negative (01/23/19 11:22 AM)[facility] HermannCHEM CEZBP5312-11-09 15:42:002.76[facility] HermannCHEM PANEL 2019-01-23 15:42:002.76[facility] HermannCHEM IHQBI4439-49-09 12:32:000.9[facility] HermannCHEM VYWGM4029-36-84 12:32:000.9[facility] HermannCHEM KOEZM0273-34-65 10:50:002.0[facility] HermannCHEM CJSAD1884-93-55 10:50:47797Ajgxnnks HermannCHEM PQFQD9270-73-21 10:50:0023[facility] HermannCHEM VJLJK0041-62-19 10:50:14259 [facility] HermannCHEM EQFYA5620-54-99 10:50:003.1[facility] HermannCHEM PANEL 2019-01-23 10:50:64339Cyhpnnaf HermannCHEM XYDEB6583-27-52 10:50:005[facility] HermannCHEM VONHH4312-37-53 10:50:000.50[facility] HermannCHEM PCBOM9011-15-34 10:50:007.8[facility] HermannCHEM HCMHD2335-18-91 10:50:0083[facility] HermannCHEM HLUIA4998-64-19 10:50:0010.1[facility] IkfzwvqNXQOLBGIGL9868-76-20 10:50:000.2 [facility] QzavrbqBDRTAOWSHT2029-01-96 10:50:000.8[facility] HermannHEMATOLOGY 2019-01-23 10:50:005.5[facility] GhkzpcjHOQRACAXUE0333-59-55 10:50:002.2[facility] JxsiawgIOYCDUPIEO8777-62-63 10:50:000.1[facility] YyeexlrYBWMMKHBST9824-06-76 10:50:0063.6[facility] YztpprgMUKUQYPISS6053-04-86 10:50:008.9[facility] Yonis VSOBLANVZY8572-70-84 10:50:002.3[facility] DqizthgHKEZYJBWXR9830-98-10 10:50:00 Normal (01/23/19 5:50 AM)[facility] WwxvoxzYHTPEQPHTF9168-37-18 10:50:00Normal (01/23/19 5:50 AM)[facility] AjeofnbCGDQDRPDQR7842-70-40 10:50:0025.1[facility] HoapwidFSKYLFFTTT7336-28-35 10:50:0013.1[facility] UrjrempZANNUHEWHF8295-45-04 10:50:87686Byxawevt UfgmsxeGQTUMZRCTC5390-60-62 10:50:007.7[facility] VXIVZQREFR6739-60-45 10:50:008.6[facility] IhdupatLDUZZMRVKJ1341-63-96 10:50:00 10.0[facility] JekvmuaUUZZVWTXYR8147-65-73 10:50:0034.6[facility]annHEMATOLOGY 2019-01-23 10:50:0028.7[facility] ZnhyojmYWZKWGEXZK9369-02-80 10:50:0087.8[facility] EfqgzdlXQZTGHABIV4865-91-66 10:50:00 Test Item Value Reference Range Interpretation Comments MCH (test code = MCH) 30.4 pg 27.0-31.0 [facility] GzvtpwjIBVEIWTJMK3531-57-80 10:50:003.27[facility]annHEMATOLOGY 2019-01-23 10:50:69132Bartwwuh CreamtzRCMGJQYHTS9737-53-55 10:50:007.7[facility] NqntajsPYKHXTLGSI0640-29-27 10:50:008.[facility] JfytezcHLNEWEMJZZ8203-76-15 10:50:0010.0[facility] PfktrffGNYJVXEDXB1039-30-58 10:50:0034.6[facility] STGCBSGVKQ8835-31-82 10:50:0028.7[facility] QgxfdqeHXTQJFZVWF7232-13-43 10:50:00 87.8[facility] YjpbfazQOUUAPCSKS8020-95-38 10:50:00 Test Item Value Reference Range Interpretation Comments MCH (test code = MCH) 30.4 pg 27.0-31.0 [facility] AuckagzAPOKQIQHLR4469-94-87 10:50:003.27[facility] HermannCHEM PANEL 2019-01-23 10:50:002.0[facility] HermannCHEM ORKZU7672-81-09 10:50:12065Xddpxkdj HermannCHEM TGXTY5787-45-39 10:50:0023[facility] HermannCHEM FZAVV5573-60-57 10:50:84468Jgqmrioy HermannCHEM FIBSG6452-60-08 10:50:003.1[facility] HermannCHEM LZUXI0400-86-52 10:50:85509Nankxnyn HermannCHEM SCYEB9498-92-72 10:50:005 [facility]annCHEM GUMSQ7017-43-47 10:50:000.50[facility] HermannCHEM PANEL 2019-01-23 10:50:007.8[facility] HermannCHEM GUFNP9788-75-12 10:50:0083[facility]ann[facility]M MGQQF3417-14-20 10:50:0010.1[facility] CyagamrCPCIFYZJFR5736-00-05 10:50:000.2[facility] UrawcprAEUOICQMVZ7493-66-19 10:50:000.8[facility] HSRDSONCIH6976-59-98 10:50:005.5[facility] AlbxmoyBGZZQQSKZD4501-41-32 10:50:002.2 [facility] DfvsoszSKCRVTFYFN8328-67-75 10:50:000.1[facility] HermannHEMATOLOGY 2019-01-23 10:50:0063.6[facility] YidpdgsFDPSBNTNZX1445-87-65 10:50:008.9[facility] UijbfxzLOGMRJHTDX3678-67-36 10:50:002.3[facility] PuxcoojCGPCGLEXWS4354-59-19 10:50:00Normal (01/23/19 5:50 AM)[facility] KwhpuqzYKESMJQXTN4549-83-16 10:50:00 Normal (01/23/19 5:50 AM)[facility] UwjqwhqJJBCUTZLGU9035-22-16 10:50:0025.1[facility] FirkjdtQBKMMARTGO2781-18-33 10:50:0013.1[facility] HermannCHEM EPYXF8512-14-12 11:32:002.4[facility] HermannCHEM RIAEE5658-16-63 11:32:002.4[facility] HermannCHEM LZUPO1909-33-88 09:04:003.0[facility] HermannCHEM WNVSL0200-54-39 09:04:003.0 [facility] EGCUF1479-00-84 07:14:00 Test Item Value Reference Range Interpretation Comments UA Spec Grav (test code = UA Spec 1.014 1 Grav) [facility] PKEIT8428-71-83 07:14:00 Test Item Value Reference Range Interpretation Comments UA pH (test code = UA pH) 6.0 1 5.0-8.0 [facility] YKHRQ2995-05-87 07:14:00Negative (01/22/19 2:14 AM) [facility] CAZJU2270-84-25 07:14:00Negative *NA*(01/22/19 2:14 AM) [facility] XUXRQ0280-00-07 07:14:00Negative *NA*(01/22/19 2:14 AM) [facility] EBNDO7288-30-25 07:14:00Negative *NA*(01/22/19 2:14 AM) [facility] TCTBN1044-20-12 07:14:00Negative (01/22/19 2:14 AM) [facility] UTIJV0365-33-09 07:14:00Negative (01/22/19 2:14 AM) [facility] VJFID5633-14-76 07:14:00Negative (01/22/19 2:14 AM) [facility] TFNZK3874-53-94 07:14:00<1[facility] BMEKL5987-15-30 07:14:0025[facility] HZGPO7854-29-43 07:14:002 [facility] HDWYM6886-04-40 07:14:00Light Yellow *NA*(01/22/19 2:14 AM)[facility] ZETRF5704-00-95 07:14:00Clear (01/22/19 2:14 AM) [facility] QDUWI2606-33-96 07:14:00 Test Item Value Reference Range Interpretation Comments UA Spec Grav (test code = UA Spec 1.014 1 Grav) [facility] [id number] 07:14:00 Test Item Value Reference Range Interpretation Comments UA pH (test code = UA pH) 6.0 1 5.0-8.0 [facility] [id number] 07:14:00Negative (01/22/19 2:14 AM) [facility] SYTSV7883-48-70 07:14:00Negative *NA*(01/22/19 2:14 AM) [facility] [id number] 07:14:00Negative *NA*(01/22/19 2:14 AM) [facility] LDINZ4102-40-40 07:14:00Negative *NA*(01/22/19 2:14 AM) [facility] XUCSS6743-03-30 07:14:00Negative (01/22/19 2:14 AM) [facility] XHHBZ8664-19-56 07:14:00Negative (01/22/19 2:14 AM) [facility] KXUJZ0413-33-70 07:14:00Negative (01/22/19 2:14 AM) [facility] DUXEI8407-93-57 07:14:00<1[facility] VJTDK6660-26-02 07:14:0025[facility] KKFGG1074-71-03 07:14:002 [facility] UHSEB3905-67-46 07:14:00Light Yellow *NA*(01/22/19 2:14 AM)[facility] QAVVU4981-53-68 07:14:00Clear (01/22/19 2:14 AM) [facility] TgbqqpjBVFCB5840-97-78 05:16:000.90[facility] VgscbnyMXFEO8050-97-61 05:16:000.90[facility] UdckyvjGJTKKUUYRG3974-97-24 05:01:000.9[facility] QXCSAZNXXS0523-54-80 05:01:008.6[facility] RsdojduKKIIPABAEG2541-26-12 05:01:000.6 [facility] ZkqelfbSUIJSVQFMF7113-69-27 05:01:0086.5[facility] HermannHEMATOLOGY 2019-01-22 05:01:005.7[facility] OtnnxyiUCNFQPEXBZ8430-60-55 05:01:006.9[facility] DmkwnfrESSOWDRIHL8933-06-13 05:01:009.9[facility] TyswtsjVXWILNPHFX1240-05-19 05:01:0032.8[facility] RcuasibHOFKVNVELH2776-79-22 05:01:0013.6[facility] IXTUDRWKQX7885-03-84 05:01:38346Jvschigh WkdwsokWOCIQGITER6271-91-38 05:01:007.3 [facility] CscyfjvPVNOJMPEKJ4031-43-06 05:01:0014.0[facility] HermannHEMATOLOGY 2019-01-22 05:01:004.85[facility] ZqvjobhMVUJMGXPKP5741-34-81 05:01:0042.7[facility] JwgnlyxZNBGUDOXMK9136-93-46 05:01:00 Test Item Value Reference Range Interpretation Comments MCH (test code = MCH) 29.0 pg 27.0-31.0 [facility] OqmxzmmKRMXQXFIWH5903-57-69 05:01:0088.2[facility]annHEMATOLOGY 2019-01-22 05:01:00 Test Item Value Reference Range Interpretation Comments INR (test code = INR) 0.96 1 0.85-1.17 [facility] BpqvyanZZIQCSUHUQ2110-58-69 05:01:00 Test Item Value Reference Range Interpretation Comments PT (test code = PT) 12.6 s 12.0-14.7 [facility] IvqcqeeNOZVGEJGQN2911-85-41 05:01:00 Test Item Value Reference Range Interpretation Comments PTT (test code = PTT) 25.9 s 22.9-35.8 [facility]BLOOD BANK LJDAAKZ5506-04-63 05:01:00Negative (01/22/19 12:01 AM) [facility]annCARDIAC EFSWZIW7985-78-70 05:01:00<0.02[facility] CARDIAC BXBRZAO7854-49-02 05:01:0049[facility] HermannCHEM FCWXZ0190-66-07 05:01:000.6[facility] HermannCHEM DGTMC5191-97-98 05:01:57570Mjxleotu HermannCHEM PWNDE6742-22-11 05:01:004.0[facility] HermannCHEM KTFMI8490-74-71 05:01:0017 [facility]annCHE[facility] UGTPN9847-95-92 05:01:0025[facility] HermannCHEM PANEL 2019-01-22 05:01:008.1[facility] HermannCHEM HSTST6249-76-73 05:01:00 Test Item Value Reference Range Interpretation Comments B/C Ratio (test code = B/C Ratio) 20 1 6-25 [facility] HJHGF0116-34-36 05:01:00 Test Item Value Reference Range Interpretation Comments A/G Ratio (test code = A/G Ratio) 1.0 1 0.7-1.6 [facility] XXGZO2847-03-58 05:01:004.1[facility] HermannCHEM PANEL 2019-01-22 05:01:006.90[facility] OhyzlqvIMCGPSJXMLNML1662-65-11 05:01:00Negative *NA*(01/22/19 12:01 AM)[facility] RkvovtzVPESQUHQHE8835-96-49 05:01:000.1[facility] GfodvxmISDDYVGTUR8495-02-17 05:01:000.7[facility] LmqqgezMJBPXMJPAY6136-40-72 05:01:000.0[facility] NmtdmorOHKTSRZPRS6858-36-28 05:01:000.0[facility] EQGYCGJNNH2643-77-77 05:01:000.9[facility] QeytnglLWLOODQROI6171-81-19 05:01:008.6 [facility] GtczhwmUUCOIDGGFL3488-49-57 05:01:000.6[facility] HermannHEMATOLOGY 2019-01-22 05:01:0086.5[facility] OhacrcgAYYYRSDBQU5741-54-22 05:01:005.7[facility] LibkuprLMNSORNHWA5162-99-53 05:01:006.9[facility] HpolojuUDWKLBDMRR4356-24-34 05:01:009.9[facility] CisdchmMINPLLTEGL6365-71-71 05:01:0032.8[facility] WYYEHMQVNG1847-96-27 05:01:0013.6[facility] WgblkrlKWPEGPRRGN9675-87-68 05:01:00 443[facility] SfmjcrsXTGPHLFMWF9524-68-14 05:01:007.3[facility] HermannHEMATOLOGY 2019-01-22 05:01:0014.0[facility] CsioxtpSQQBHRUUVF2849-95-99 05:01:004.85[facility] NsdyiweGJEVFDBAKL8825-22-47 05:01:0042.7[facility] KczoyvdDFKUNUWXGN3612-76-41 05:01:00 Test Item Value Reference Range Interpretation Comments MCH (test code = MCH) 29.0 pg 27.0-31.0 [facility] ZivuxjjVOPMLDUZXE8851-31-05 05:01:0088.2[facility] HermannHEMATOLOGY 2019-01-22 05:01:00 Test Item Value Reference Range Interpretation Comments INR (test code = INR) 0.96 1 0.85-1.17 [facility] KrjqandUDCJJRPAQD8857-25-11 05:01:00 Test Item Value Reference Range Interpretation Comments PT (test code = PT) 12.6 s 12.0-14.7 [facility] GpckcxpTGRGABHNME8332-58-18 05:01:00 Test Item Value Reference Range Interpretation Comments PTT (test code = PTT) 25.9 s 22.9-35.8 [facility] CWLJCHX0273-13-09 05:01:00Negative (01/22/19 12:01 AM) [facility] HermannCARDIAC NEGURLA2278-93-46 05:01:00<0.02[facility] CARDIAC AKNGIDK0688-02-30 05:01:0049[facility] HermannCHEM AITTC7885-07-20 05:01:000.6[facility] HermannCHEM KJCYS9626-62-53 05:01:[place] HermannCHEM XOOGI2828-92-35 05:01:004.0[facility] HermannCHEM HLSMX3834-32-23 05:01:0017 [facility] AHANP2809-72-12 05:01:0025[facility] HermannCHEM PANEL 2019-01-22 05:01:008.1[facility] HermannCHEM LQDIW3022-13-88 05:01:00 Test Item Value Reference Range Interpretation Comments B/C Ratio (test code = B/C Ratio) 20 1 6-25 [facility] HermannCHEM EKMOV5999-76-12 05:01:00 Test Item Value Reference Range Interpretation Comments A/G Ratio (test code = A/G Ratio) 1.0 1 0.7-1.6 [facility] HermannCHEM EPGKH2461-80-74 05:01:004.1[facility] HermannCHEM PANEL 2019-01-22 05:01:006.90[facility] OzmmnvbSCJSBUSLMVNEN9797-94-63 05:01:00Negative *NA*(01/22/19 12:01 AM)[facility] AugxcgsMSQNGKENPI0828-05-17 05:01:000.1[facility] BkofyutWIITXHHXDM1813-68-52 05:01:000.7[facility] TuztncfJWCKICUYDE3286-87-18 05:01:000.0[facility] JyhinpmTMBDYQXLDN3149-12-05 05:01:000.0[facility] QkizhihYSI4G 2018-02-20 14:36:00 Test Item Value Reference Range Interpretation [...] 0.00-0.01 N code = ETOHU) Comprehensive Metabolic Zfpts6512-14-06 14:36:00 Test Item Value Reference Range Interpretation [...] is not provided , and the patient isKale can, multiply by 1.2 12. If sex is not prov ided, and thepatient is female, multipl y by 0.742. Results for patients <18 ye ars ofage have not been validated by th e MDRD study and nyasia d be interpretedwith caution.eGFR Re sult Interpretation: eGFR > or = 60 is in t he Normal RangeeGF R < 60 may mean kidney diseaseeGFR < 1 5 may mean kidney failureRange s recommended by the National Kidney Foundation,http ://nkd ep.nih.gov Urinalysis Qdgafwyc2528-01-61 14:32:00 Test Item Value Reference Range Interpretation Comments Color (test code = COLOR) Yellow Yellow,Straw,Pl N yellow Clarity (test code = Clear Clear N CLAR) Specific [place] (test 1.024 1.001-1.035 N code = SPGR) [...] code = Few /HPF BACT) CBC with Vgfczsmylrkj1420-64-02 14:21:00 Test Item Value Reference Range Interpretation [...] code = ALYMPH) 3.0 K/cumm 0.5-4.6 N [place] Abs (test code = AMONO) 0.5 K/cumm 0.0-1.2 N Eos Abs (test code = AEOS) 0.19 K/cumm 0.00-0.74 N Baso Abs (test code = ABASO) 0.1 K/cumm 0.00-0.21 N
[2021-09-10] MEDS ORDERED: hydrOXYzine HCL 25 MG TAB ONE (22:23)
[2021-09-10] MEDS ORDERED: DIVALPROEX DR 250 MG TAB PO ONE (22:31)
--- NOTE | 2021-09-10 22:32 | EDPHYS ---
Physician Documentation [facility] Name: Tiffany Quinn Age: 51 yrs Sex: Female : 1970 Arrival Date: 09/10/2021 Time: 18:28 Bed 5 Private MD: Andrea Angel ED Physician Bill Palm HPI: 09/10 22:17 This 51 yrs old Female presents to ER via Ambulatory with complaints of jo Anxiety. 22:17 The patient presents to the emergency department with anxiety, juan diego. Onset: The jo symptoms/episode began/occurred 3 day(s) ago. Past psychiatric history: Prior diagnosis: bipolar disorder, Psychiatric medications include: lithium. Associated signs and symptoms: The patient has no apparent associated signs or symptoms. Severity of symptoms: At their worst the symptoms were mild in the emergency department the symptoms are unchanged. The patient has not experienced similar symptoms in the past. 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 - Social history:: Smoking status: Patient uses street drugs, Methamphetamine (Meth). ROS: 22:22 Constitutional: Negative for fever, chills, and weight loss, Eyes: Negative for injury, jo pain, redness, and discharge, ENT: Negative for injury, pain, and discharge, Neck: Negative for injury, pain, and swelling, Cardiovascular: Negative for chest pain, palpitations, and edema, Respiratory: Negative for shortness of breath, cough, wheezing, and pleuritic chest pain, Abdomen/GI: Negative for abdominal pain, nausea, vomiting, diarrhea, and constipation, Back: Negative for injury and pain, : Negative for injury, bleeding, discharge, and swelling, MS/Extremity: Negative for injury and deformity, Skin: Negative for injury, rash, and discoloration, Neuro: Negative for headache, weakness, numbness, tingling, and seizure, Allergy/Immunology: Negative for hives, rash, and allergies, Endocrine: Negative for neck swelling, polydipsia, polyuria, polyphagia, and marked weight changes, Hematologic/Lymphatic: Negative for swollen nodes, abnormal bleeding, and unusual bruising. 22:22 Psych: Positive for anxiety. Exam: 22:22 Constitutional: This is a well developed, well nourished patient who is awake, alert, jo and in no acute distress. Head/Face: Normocephalic, atraumatic. Eyes: Pupils equal round and reactive to light, extra-ocular motions intact. Lids and lashes normal. Conjunctiva and sclera are non-icteric and not injected. Cornea within normal limits. Periorbital areas with no swelling, redness, or edema. ENT: Nares patent. No nasal discharge, no septal abnormalities noted. Tympanic membranes are normal and external auditory canals are clear. Oropharynx with no redness, swelling, or masses, exudates, or evidence of obstruction, uvula midline. Mucous membranes moist. Neck: Trachea midline, no thyromegaly or masses palpated, and no cervical lymphadenopathy. Supple, full range of motion without nuchal rigidity, or vertebral point tenderness. No Meningismus. Chest/axilla: Normal chest wall appearance and motion. Nontender with no deformity. No lesions are appreciated. Cardiovascular: Regular rate and rhythm with a normal S1 and S2. No gallops, murmurs, or rubs. Normal PMI, no JVD. No pulse deficits. Respiratory: Lungs have equal breath sounds bilaterally, clear to auscultation and percussion. No rales, rhonchi or wheezes noted. No increased work of breathing, no retractions or nasal flaring. Abdomen/GI: Soft, non-tender, with normal bowel sounds. No distension or tympany. No guarding or rebound. No evidence of tenderness throughout. Back: No spinal tenderness. No costovertebral tenderness. Full range of motion. Female : Normal external genitalia. Skin: Warm, dry with normal turgor. Normal color with no rashes, no lesions, and no evidence of cellulitis. MS/ Extremity: Pulses equal, no cyanosis. Neurovascular intact. Full, normal range of motion. Neuro: Awake and alert, GCS 15, oriented to person, place, time, and situation. Cranial nerves II-XII grossly intact. Motor strength 5/5 in all extremities. Sensory grossly intact. Cerebellar exam normal. Normal gait. 22:22 Psych: Behavior/mood is anxious, Affect is animated, Oriented to person, place, time, Patient has no thoughts/intents to harm self or others. Judgement / Insight is normal. Memory is normal. Vital Signs: 18:54 Pulse 98; Resp 18; Temp 97.9; Pulse Ox 100% ; Weight 84.82 kg; Height 5 ft. 1 in. 5 (154.94 cm); 19:02 BP 97 / 80; jh5 22:25 BP 151 / 92; Pulse 90; Resp 18; Temp 98.8(O); Pulse Ox 99% on R/A; Pain 0/10; kc4 22:51 BP 148 / 78; Pulse 88; Resp 18; Temp 98.0(O); Pulse Ox 100% on R/A; Pain 0/10; kc4 18:54 Body Mass Index 35.33 (84.82 kg, 154.94 cm) [facility] MDM: 22:01 Patient medically screened. jo 22:24 Differential diagnosis: depression. Data reviewed: vital signs, nurses notes, lab test jo result(s). Data interpreted: radiation monitor: not applicable for this patient encounter. rate is 98 beats/min, rhythm is regular, Pulse oximetry: on room air is 100 %. Counseling: I had a detailed discussion with the patient and/or guardian regarding: the historical points, exam findings, and any diagnostic results supporting the discharge/admit diagnosis, lab results, the need for outpatient follow up, for definitive care, a family practitioner, a psychiatrist. Administered Medications: 22:25 Drug: hydrOXYzine 50 mg Route: PO; kc4 22:51 Follow up: Response: No adverse reaction kc4 22:35 Not Given (Duplicate Order): Depakote (divalproex) 500 mg PO once jo 22:37 CANCELLED (Duplicate Order): SEROquel (QUEtiapine) 50 mg PO once jo 22:51 Not Given (Patient Refused): SEROquel (QUEtiapine) 300 mg PO once kc4 Disposition Summary: 09/10/21 22:32 Discharge Ordered Location: Home jo Problem: new jo Symptoms: have improved jo Condition: Stable jo Diagnosis - Adjustment disorder with anxiety jo - Bipolar disorder, current episode manic without psychotic features, moderate jo Followup: jo - With: Andrea Angel MD - When: 2 - 3 days - Reason: Recheck today's complaints, Continuance of care, Re-evaluation by your physician Followup: jo - With: Chilo Smith MD - When: 2 - 3 days - Reason: Recheck today's complaints, Re-evaluation by your physician Discharge Instructions: - Discharge Summary Sheet jo - Panic Attack jo - Bipolar 1 Disorder jo - Juan [place] jo - Mixed Bipolar Disorder jo - Supporting Someone With Anxiety jo - Hypomania jo Forms: - Medication Reconciliation Form jo - Thank You Letter jo - Antibiotic Education jo - Prescription Opioid Use [facility] Prescriptions: - lithium carbonate 300 mg Oral tablet extended release - take 1 tablet by ORAL route 3 times per day; 60 tablet; Refills: 0, Product [facility] Selection Permitted - Hydroxyzine HCl 50 mg Oral Tablet - take 1 tablet by ORAL route every 8 hours As needed; 20 tablet; Refills: 0, [facility] Product Selection Permitted - Seroquel 300 mg Oral tablet - take 1 tablet by ORAL route 2 times per day; 30 tablet; Refills: 0, Product [facility] Selection Permitted Signatures: Bill Palm MD MD cha Chuman, Kourtney kc4 Niya Huntley RN RN jh5 Corrections: (The following items were deleted from the chart) 22:37 22:36 SEROquel (QUEtiapine) 50 mg PO once ordered. counts include 234 beds at the [facility]
--- NOTE | 2021-09-10 22:32 | ER ---
Nurse's Notes [facility] Name: Tiffany Quinn Age: 51 yrs Sex: Female : 1970 Arrival Date: 09/10/2021 Time: 18:28 Bed 5 Private MD: Andrea Angel Diagnosis: Adjustment disorder with anxiety;Bipolar disorder, current episode manic without psychotic features, moderate Presentation: 09/10 18:54 Chief complaint: Patient states: "I dont have much of a pulse or blood pressure; people [facility] are getting people sick and get money off it. It's taught in school, it's weird. I dont know how long it's been happening. I have a friend named delicia del real, that's just one name though, thank you". Coronavirus screen: Vaccine status: Patient reports receiving the 2nd dose of the covid vaccine. Client denies travel out of the [place] in the last 14 days. Ebola Screen: Patient negative for fever greater than or equal to 101.5 degrees Fahrenheit, and additional compatible Ebola Virus Disease symptoms Patient denies exposure to infectious person. Patient denies travel to an Ebola-affected area in the 21 days before illness onset. No symptoms or risks identified at this time. Initial Sepsis Screen: Does the patient meet any 2 criteria? No. Patient's initial sepsis screen is negative. Does the patient have a suspected source of infection? No. Patient's initial sepsis screen is negative. Risk Assessment: Do you want to hurt yourself or someone else? Patient reports no desire to harm self or others. Onset of symptoms was September 10, 2021. 18:54 Method Of Arrival: Ambulatory [facility] 18:54 Acuity: MANUEL 5 [facility] Triage Assessment: 19:02 General: Appears in no apparent distress. unkempt, Behavior is anxious, restless. 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 - Irregular menses [facility] Historical: - Allergies: 19:01 Haldol; [facility] 19:01 Pepcid; [facility] 19:01 Toradol; [facility] - Home Meds: 19:01 lithium carbonate 300 mg Oral tab 1 cap 3 times per day [Active]; [facility] - PMHx: 19:01 Anxiety; Bipolar disorder; [facility] - PSHx: 19:01 breast augmentation; Cholecystectomy; hernia repair; [facility] - Immunization history:: Adult Immunizations up to date, Client reports receiving the 2nd dose of the Covid vaccine. - Social history:: Smoking status: Patient uses street drugs, Methamphetamine (Meth). Screenin:34 Abuse screen: Denies threats or abuse. Denies injuries from another. Nutritional [facility] screening: No deficits noted. Tuberculosis screening: No symptoms or risk factors identified. Fall Risk None identified. Assessment: 18:59 Reassessment: Pt states; " I haven't done meth today, but yesterday I did some and went [facility] to the ER in [place] twice". Pt at this time can not sit still long enough for accurate blood pressure. General: Appears in no apparent distress. unkempt, Behavior is anxious, restless. Pain: Denies pain. Neuro: Level of Consciousness is awake, alert, obeys commands, Oriented to person, place, time, Speech is normal. Cardiovascular: Capillary refill < 3 seconds Patient's skin is warm and dry. Respiratory: Airway is patent Trachea midline Respiratory effort is even, unlabored, Respiratory pattern is regular, symmetrical. Vital Signs: 18:54 Pulse 98; Resp 18; Temp 97.9; Pulse Ox 100% ; Weight 84.82 kg; Height 5 ft. 1 in. [facility] (154.94 cm); 19:02 BP 97 / 80; jh5 22:25 BP 151 / 92; Pulse 90; Resp 18; Temp 98.8(O); Pulse Ox 99% on R/A; Pain 0/10; kc4 22:51 BP 148 / 78; Pulse 88; Resp 18; Temp 98.0(O); Pulse Ox 100% on R/A; Pain 0/10; kc4 18:54 Body Mass Index 35.33 (84.82 kg, 154.94 cm) [facility] ED Course: 18:28 Patient arrived in ED. as 18:28 Andrea Angel MD is Private Physician. as 18:59 Triage completed. [facility] 19:34 Patient has correct armband on for positive identification. [facility] 19:34 Patient notified of wait time. Antipyretics given from triage as ordered by an ER [facility] provider. 19:35 No provider procedures requiring assistance completed. Patient did not have IV access jh5 during this emergency room visit. 21:54 Bernard Rodriguez [facility] 21:54 Bill Palm MD is Attending Physician. [facility] 22:22 Angeles Leos is Primary Nurse. [facility] 22:30 Andrea Angel MD is Referral Physician. [facility] 22:31 Chilo Smith MD is Referral Physician. [facility] Administered Medications: 22:25 Drug: hydrOXYzine 50 mg Route: PO; kc4 22:51 Follow up: Response: No adverse reaction kc4 22:35 Not Given (Duplicate Order): Depakote (divalproex) 500 mg PO once [facility] 22:37 CANCELLED (Duplicate Order): SEROquel (QUEtiapine) 50 mg PO once [facility] 22:51 Not Given (Patient Refused): SEROquel (QUEtiapine) 300 mg PO once [facility] Outcome: 22:32 Discharge ordered by . [facility] 22:52 Discharged to home ambulatory. kc4 22:52 Condition: stable 22:52 Discharge instructions given to patient, Instructed on discharge instructions, follow up and referral plans. Demonstrated understanding of instructions, follow-up care, medications, Prescriptions given X 2. 22:53 Patient left the ED. 4 Signatures: Bill Palm MD MD cha Mickail, Joel, PA PA Jewels Torres Kourtney 4 Niya Huntley, RN RN jh5
[2021-09-10 23:42] VITALS: BP 148/78; TEMP 98; O2SAT 100
== END 2021-09-10 22:53 | disposition home or self-care (01) ==
LOC: ER 18:25
DX: F43.22 Adjustment disorder with anxiety (principal); F31.12 Bipolar disorder, current episode manic without psychotic features, moderate
CPT/HCPCS: 99283

== ENCOUNTER 2021-09-11 18:15 | Emergency (ER) | payer OTHER ==
--- OUTSIDE RECORDS SUMMARY | 2021-09-11 18:25 | XMS REPORT | Continuity of Care Document ---
:1970 Author Organization [facility] Address [address] [place] [address] Care Team Providers Name Role Phone UNKNOWN Primary Care Physician Unavailable Humaira-Mbayo_A_AH Attending Clinician Unavailable Sanchez SNOW Attending Clinician SANCHEZ Attending Clinician Unavailable HANSA, S Attending Clinician Unavailable Hansa PAC, S Attending Clinician Doctor Unassigned, Name Attending Clinician Unavailable Singer ESCALANTE Attending Clinician Attending Clinician Unavailable Chente Attending Clinician Unavailable Chente Attending Clinician Unavailable LOS Attending Clinician Unavailable Humaira-Mbayo_A_AH Admitting Clinician Unavailable SANCHEZ Admitting Clinician Unavailable Chente Admitting Clinician Unavailable LOS Admitting Clinician Unavailable Payers Payer Name Policy Type Policy Number Effective Date Expiration Date S [facility] OF [place] - [id number] 2020 [employer] 00:00:00 (MEDICARE REPLACEMENT/ADVANT AGE - HMO) Problems Condition Condition Condition Status Onset Resolution Last Treating Co mments Source Name Details Category Date Date Treatment Clinician Date LOW PB Diagnosis Active 2019-01-22 Mem oria 01-21 01:52:00 l LOW PB 00:00: Yonis 00 Active 01/21/2019 [place] INFECTIOUS Diagnosis Active 2019-02-06 Memoria GASTROENTE 01-21 08:58:00 l RITIS AND 00:00: Yonis COLITIS INFECTIOUS 00 GASTROENTE RITIS AND COLITIS Active 01/21/2019 [facility] Irregular Irregular Disease Active Uni vers menstrual menstrual 8-15 ity of cycle cycle 00:00: [address] Skin Skin Disease Active Univers lesion lesion 8-15 ity of 00:00: [address] Psychiatri Psychiatri Disease Active U nivers c disorder c disorder 8-15 it y of 00:00: [address] Well woman Well woman Disease Active U nivers exam with exam with 8-15 ity of routine routine 00:00: [place] gynecologi gynecologi 00 Me dical nicky exam nicky exam Branch INFECTIOUS Diagnosis Active 2019-02-06 Memoria GASTROENTE 08:58:00 l RITIS AND Yonis COLITIS, INFECTIOUS GASTROENTE RITIS AND COLITIS, Active [facility] Allergies, Adverse Reactions, Alerts Allergy Allergy Status Severity Reaction(s) Onset Inactive Treating Comm ents Source Name Type Date Date Clinician Phenerga Phenerga Active Wicho a n n l Yonis NO KNOWN Drug Active Univers ALLERGIE Class ity of S [facility] Social History Social Habit Start Date Stop Date Quantity Comments Source History of Cigarette Smoker Universi ty of tobacco use [facility] Tobacco Comment 2-3 cigs a day [facility] Exposure to Not sure [facility] SARS-CoV-2 [facility] (event) [place] Tobacco use and 2016-06-08 2016-06-08 Never used Universit y of exposure 00:00:00 00:00:00 [facility] Alcohol intake 2016-06-08 2016-06-08 0 /d University of 00:00:00 00:00:00 [facility] Sex Ass[birth year] At [birth year] Universit y of 00:00:00 00:00:00 [facility] Smoking Status Start Date Stop Date Source Social History 2019-01-22 05:00:12 [facility] Her urena Current some day smoker 2016-06-08 00:00:00 [facility] Medications Ordered Filled Start Stop Current Ordering Indication Dosage Frequency Signature Comments Components Source Medication Medication Date Date Medication? Clinician (SIG) Name Name cefTRIAXone 2020-10- No 1000mg 1,000 mg, Univers (ROCEPHIN) 17 11-17 IV ity of 1,000 mg in 08:30: 08:01 [place], [place] NaCl 0.9% 00 :00 ONCE, 1 [...] 09/09/21 at 2330, RANDA amoxicillin 2020-10 Yes [id number] 500mg Take 1 Univers 500 mg 11-10 capsule by ity of capsule 00:00: mouth 3 [place] 00 (three) Medical times Branch daily. ondansetron 2019-10- No 4mg 4 mg, [facility] ers (ZOFRAN-ODT -05 05- Oral, ity of ) 15:15: 14:16 ONCE, 1 [place] disintegrat 00 :00 dose, Mon Med ical ing tablet 09/30/20 at [facility] 4 mg 0915, Routine ondansetron 2019-10- No 4mg 4 mg, [facility] ers (ZOFRAN-ODT 12-01- Oral, ity of ) 14:30: 13:32 ONCE, 1 [place] disintegrat 00 :00 dose, Mon Med ical ing tablet 09/30/20 at [facility] 4 mg 0830, Routine ondansetron 2019-10 Yes [id number] 4mg Take 1 Univers 4 mg 2-07 tablet by ity of disintegrat 00:00: mouth [place] ing tablet 00 every 8 Medica l (eight) Branch hours as needed for Nausea and Vomiting (N/V). ondansetron 2019-10 Yes [id number] 4mg Take 1 Univers 4 mg 2-07 tablet by ity of disintegrat 00:00: mouth [place] ing tablet 00 every 8 Medica l (eight) Branch hours as needed for Nausea and Vomiting (N/V). ondansetron 2019-10 Yes [id number] 4mg Take 1 Univers 4 mg 2-07 tablet by ity of disintegrat 00:00: mouth [place] ing tablet 00 every 8 Medica l (eight) Branch hours as needed for Nausea and Vomiting (N/V). ondansetron 2019-10 Yes [id number] 4mg Take 1 Univers 4 mg 2-07 tablet by ity of disintegrat 00:00: mouth [place] ing tablet 00 every 8 Medica l (eight) Branch hours as needed for Nausea and Vomiting (N/V). ciprofloxac Yes 500 mg = 1 Memoria in 500 mg 4-04 tab, PO, l oral tablet 17:35: [id number], X Yonis 00 4 day, # 8 tab, 0 Refill(s) Ondansetron Yes 4 mg = 1 Me moria 4 MG Oral 4-04 tab, PO, l Tablet 17:35: Q6H, PRN [place] [Zofran] 00 Nausea/Vom iting, # 20 tab, [...] 4-04 tab, PO, l oral tablet 17:35: [id number], X Yonis 00 4 day, # 8 [...] s with feeding tube less than 14 [place] (Dobhoff, J-tube etc) and pediatric and patients. Potassium No Notes: Memori a Chloride 4-03 (Same as: l 13:26: K-Dur 20) [place] "Do Not Crush" Give with food and full glass of water For patients unable to swallow tablet, dissolve in one half glass of water. Allow about 2 minutes for the tablets to disintegra te. Stir before giving to prepare slurry and administer . Please exclude Patient s with feeding tube less than 14 [place] (Dobhoff, J-tube etc) and pediatric and patients. Strattera No 0.5 mg/kg, Me moria 01-24 Route: PO, l 14:00: QAM, Yonis 00 Dosing Weight 75, kg, Start date: 01/24/19 9:00:00 CDT, Duration: 30 day, Stop date: 02/22/19 9:00:00 CDT Strattera 2018-0 No 0.5 mg/kg, Me moria 02 Route: PO, l 14:00: QAM, [place] 00 Dosing Weight 75, kg, Start date: 01/24/19 9:00:00 CDT, Duration: 30 day, Stop date: 02/22/19 9:00:00 CDT lithium 2018-0 No Notes: Do Memor ia 4-02 not crush l 02:00: or chew. (Same as: Eskalith-C R) lithium No Notes: Do Memor ia 4-02 not crush l 02:00: or chew. (Same as: Eskalith-C R) Risperdal No Notes: Memori a - (Same as: l 22:00: Risperdal) Strattera No 1 mg, Memoria 4- Route: PO, l 22:00: QPM, Dosing Weight 75, kg, Start date: 01/23/19 17:00:00 CDT, Duration: 30 day, Stop date: 02/21/19 17:00:00 CDT Risperdal No Notes: Memori a - (Same as: l 22:00: Risperdal) ttera No 1 mg, Memoria 4 Route: PO, l 22:00: QPM, Dosing Weight 75, kg, Start date: 01/23/19 17:00:00 CDT, Duration: 30 day, Stop date: 02/21/19 17:00:00 CDT normal 0 No 1,000 mL, Memori a [...] 1.84, m2 Clonazepam No Notes: Memor ia 4- (Same As: l 18:00: KlonoPIN) [place] 00 Clonazepam No Notes: Memor ia 4- (Same As: l 18:00: KlonoPIN) Yonis 00 Flagyl No Notes: Memoria 4- (Same as: l 15:00: Flagyl) [place] 00 Take with food/ avoid alcohol Cipro No Notes: May Memori a 01-23 interfere l 15:00: w/enteral [place] 00 feedings - Take 1 hr before or 2 hrs after antacids, dairy pdt & minerals. On empty stomach. Flagyl No Notes: Memoria 4- (Same as: l 15:00: Flagyl) [place] 00 Take with food/ avoid alcohol Cipro No Notes: February Memori a - interfere l 15:00: w/enteral [place] 00 feedings - Take 1 hr before [...] 500 mg, Mem oria in 500 MG 01 PO, l Oral Tablet 14:20: [id number], 0 Yonis [Cipro] 00 Refill(s) potassium Yes 40 mEq, Memor ia chloride 20 -01 PO, ONCE, l mEq oral 14:20: 0 [place] tablet, 00 Refill(s) extended release Metronidazo No 500 mg, Mem oria le 500 MG 4-01 PO, l Oral Tablet 14:20: [id number], 0 H ermann [Flagyl] 00 Refill(s) Ciprofloxac No 500 mg, Mem oria in 500 MG 4-01 PO, l Oral Tablet 14:20: [id number], 0 Yonis [Cipro] 00 Refill(s) Potassium No Notes: Memori a Chloride - (Same as: l 14:17: K-Dur 20) [place] 00 "Do Not Crush" Give with food and full glass of water For patients unable to swallow tablet, dissolve in one half glass of water. Allow about 2 minutes for the tablets to disintegra te. Stir before giving to prepare slurry and administer . Please exclude Patient s with feeding tube less than 14 [place] (Dobhoff, J-tube etc) and pediatric and patients. Potassium No Notes: Memori a Chloride - (Same as: l 14:17: K-Dur ) [place] 00 "Do Not Crush" Give with food and full glass of water For patients unable to swallow tablet, dissolve in one half glass of water. Allow about 2 minutes for the tablets to disintegra te. Stir before giving to prepare slurry and administer . Please exclude Patient s with feeding tube less than 14 [place] (Dobhoff, J-tube etc) and pediatric and patients. Pepcid No Notes: Memoria 3-31 (Same as: l 22:00: Pepcid) Yonis 00 Pepcid No Notes: Memoria 3-31 (Same as: l 22:00: Pepcid) [place] 00 Strattera Yes 0.5 mg/kg, Me moria [...] 3-31 PO, QAM, 0 l 21:08: Refill(s) [place] 00 lithium 450 2018- Yes 450 mg = [...] 15:03: 400mg/day. Yonis 00 (Same As: Ultram) normal No 1,000 [...] l IV 1,000 mL 09:48: ml/hr, Herm Infuse over: 6.7 hr, Route: IV, Dosing [...] 3-31 Route: IM, l 09:47: Drug form: [place] 00 PDR/INJ, PRN, Dosing Weight 75.994, kg, PRN Blood Glucose Results, Start date: 01/22/19 4:47:00 CDT, Duration: 30 day, Stop date: 02/21/19 4:46:00 CDT Dextrose No 12.5 gm, Memor ia 50% Syringe 3-31 25 mL, l 09:47: Route: [place] 00 IVP, Drug Form: INJ, Dosing Weight [...] moria IV 3-31 1,000 l 08:52: ml/hr, [place] 00 Infuse Over: 1 hr, Route: IV, [...] Wasted: ___ mg Zosyn No Notes: Memoria -31 (Same as: l 06:10: Zosyn) Dosing based [...] 0.9% 01-22 Same as: l 04:52: BD Posiflush Sterile Zofran No Notes: Memoria 3-31 (Same as: l 04:52: Zofran) Yonis 00 MEDICATION WASTE Product Size: 4 mg Product Wasted: ___ mg Saline No Notes: Memoria Flush 0.9% 01-22 Same as: l 04:52: BD Yonis 00 [...] moria IV 01-22 1,000 l 04:51: ml/hr, Infuse Over: 1 hr, Route: [...] (KLONOPIN 8-15 mouth. ity of ORAL) 19:02: [address] Branch CITALOPRAM 2016-0 Yes Take by Uni vers HYDROBROMID 8-15 mouth. ity of E 19:02: [place] (CITALOPRAM 27 Medical ORAL) Branch ibuprofen 2016-0 Yes 200mg Take 200 Uni vers (ADVIL) 200 8-15 mg by ity of mg tablet 14:02: mouth [place] [address] every 6 Medical (six) Branch hours as needed. CLONAZEPAM 2016-0 Yes Take by Uni vers (KLONOPIN 8-15 mouth. ity of ORAL) 14:02: [place] [address] Medical Branch CITALOPRAM 2016-0 Yes Take by Uni vers HYDROBROMID 8-15 mouth. ity of E 14:02: [place] (CITALOPRAM 27 Medical ORAL) Branch ibuprofen 2016-0 Yes 200mg Take 200 Uni vers (ADVIL) 200 8-15 mg by ity of mg tablet 14:02: mouth [place] [address] every 6 Medical (six) Branch hours as needed. CLONAZEPAM 2016-0 Yes Take by Uni vers (KLONOPIN 8-15 mouth. ity of ORAL) 14:02: [address] Branch CITALOPRAM 2016-0 Yes Take by Uni vers HYDROBROMID 8-15 mouth. ity of E 14:02: [place] (CITALOPRAM 27 Medical ORAL) Branch ibuprofen 2016-0 Yes 200mg Take 200 Uni vers (ADVIL) 200 8-15 mg by ity of mg tablet 14:02: mouth [place] [address] every 6 Medical (six) Branch hours as needed. CLONAZEPAM 2016-0 Yes Take by Uni vers (KLONOPIN 8-15 mouth. ity of ORAL) 14:02: [address] Branch CITALOPRAM 2016-0 Yes Take by Uni vers HYDROBROMID 8-15 mouth. ity of E 14:02: [place] (CITALOPRAM 27 Medical ORAL) Branch misoprostol 2016-0 [...] H it y of en-caff 00:00: PRN. [place] (ESGIC) 00 Medical 50-325-40 Branch mg tablet butalbital- 2016-0 Yes TK 1 TO 2 U nivers acetaminoph 8-01 T PO Q 8 H it y of en-caff 00:00: PRN. [place] (ESGIC) 00 Medical 50-325-40 Branch mg tablet butalbital- 2016-0 Yes TK 1 TO 2 U nivers acetaminoph 8-01 T PO Q 8 H it y of en-caff 00:00: PRN. [place] (ESGIC) 00 Medical 50-325-40 Branch mg tablet butalbital- 2016-0 Yes TK 1 TO 2 U nivers acetaminoph 8-01 T PO Q 8 H it y of en-caff 00:00: PRN. [place] (ESGIC) 00 Medical 50-325-40 Branch mg tablet dextroamphe 2015-0 Yes TK 1 T PO U nivers tamine-amph 7-20 BID. ity of etamine 00:00: [place] (ADDERALL) 00 Medical 20 mg Branch tablet dextroamphe 2015-0 Yes TK 1 T PO U nivers tamine-amph 7-20 BID. ity of etamine 00:00: [place] (ADDERALL) 00 Medical 20 mg Branch tablet dextroamphe 2015-0 Yes TK 1 T PO U nivers tamine-amph 7-20 BID. ity of etamine 00:00: [place] (ADDERALL) 00 Medical 20 mg Branch tablet [...] 2021-09-10 08:01:00 138 mm[Hg] Univer sity of [facility] Diastolic blood 2021-09-10 08:01:00 97 mm[Hg] [facility] Heart rate 2021-09-10 08:01:00 87 /min [facility] Respiratory rate 2021-09-10 08:01:00 20 /min [facility] O[facility] saturation in 2021-09-10 08:01:00 98 /min University of Arterial blood by [facility] Pulse oximetry [place] Body temperature 2021-09-10 04:28:51 37.17 Ruthann [facility] Body height 2021-09-10 04:26:00 154.9 cm [facility] Body weight 2021-09-10 04:26:00 81.647 kg [facility] BMI 2021-09-10 04:26:00 34.01 kg/m2 [facility] Systolic blood 2021-09-09 20:06:00 150 mm[Hg] Univer sity [facility] Diastolic blood 2021-09-09 20:06:00 89 mm[Hg] Unive rsity of [facility] Heart rate 2021-09-09 20:06:00 108 /min [facility] Body temperature 2021-09-09 20:06:00 37.22 Ruthann [facility] Respiratory rate 2021-09-09 20:06:00 18 /min [facility] Oxygen saturation in 2021-09-09 20:06:00 99 /min University of Arterial blood by [facility] Pulse oximetry Branch Body weight 2021-09-09 20:05:00 81.647 kg Universi ty of [place] [facility] BMI 2021-09-09 20:05:00 32.40 kg/m2 Universi ty [facility] [place] [facility] Systolic blood 2020-09-30 14:00:00 126 mm[Hg] Univer sity of pressure [place] [facility] Diastolic blood 2020-09-30 14:00:00 84 mm[Hg] Unive rsity of pressure [place] [facility] Heart rate 2020-09-30 14:00:00 79 /min Universi ty [facility] [place] [facility] Oxygen saturation in 2020-09-30 14:00:00 98 /min University of Arterial blood by [facility] Pulse oximetry Branch Body temperature 2020-09-30 13:26:00 37.22 Ruthann Univ ersity of [place] [facility] Respiratory rate 2020-09-30 13:26:00 16 /min Univ ersity [facility] [place] [facility] Body weight 2020-09-30 13:26:00 72.576 kg Universi ty [facility] [place] [facility] BMI 2020-09-30 13:26:00 28.80 kg/m2 Universi ty [facility] [place] [facility] Systolic blood 2020-09-30 14:00:00 126 mm[Hg] Univer sity of pressure [place] [facility] Diastolic blood 2020-09-30 14:00:00 84 mm[Hg] Unive rsity of pressure [place] [facility] Heart rate 2020-09-30 14:00:00 79 /min Universi ty of [place] [facility] Oxygen saturation in 2020-09-30 14:00:00 98 /min University of Arterial blood by [facility] Pulse oximetry Branch Body temperature 2020-09-30 13:26:00 37.22 Ruthann Univ ersity of [place] [facility] Respiratory rate 2020-09-30 13:26:00 16 /min Univ ersity [facility] [place] [facility] Body weight 2020-09-30 13:26:00 72.576 kg Universi ty [facility] [place] [facility] BMI 2020-09-30 13:26:00 28.80 kg/m2 [facility]i ty [facility] [place] [facility] Temperature Oral (F) 2019-01-28 01:16:00 98.6 F [facility] Systolic (mm Hg) 2019-01-28 01:16:00 [place]ir Yonis Diastolic (mm Hg) 2019-01-28 01:16:00 Mem orial Y[place]is Heart Rate 2019-01-28 01:16:00 [facility] [place] Respitory Rate 2019-01-28 01:16:00 Memori al Yonis Systolic (mm Hg) 2019-01-27 20:42:00 Estrada rial [place] Diastolic (mm Hg) 2019-01-27 20:42:00 Mem orial Yonis Heart Rate 2019-01-27 20:42:00 [facility] [place] Respitory Rate 2019-01-27 20:42:00 Memori al [place] Temperature Oral (F) 2019-01-27 20:42:00 98.5 F [facility] [place] Systolic (mm Hg) 2019-01-27 17:00:00 Estrada rial [place] Diastolic (mm Hg) 2019-01-27 17:00:00 Mem orial Yonis Temperature Oral (F) 2019-01-27 17:00:00 98.5 F Memorial Y[place]is Heart Rate 2019-01-27 17:00:00 [facility] [place] Respitory Rate 2019-01-27 17:00:00 Wicho chang Yonis Height 2019-01-22 14:35:00 [facility] 2019-01-22 14:35:00 [facility] al [place] Weight 2019-01-22 14:35:00 [facility] Yonis Weight 2019-01-22 04:34:00 [facility] Yonis Procedures Procedure Date / Time Performing Clinician Source Performed URINALYSIS 2021-09-10 06:03:00 Neena Bradford [facility] URINE DRUG (IMMUNOASSAY) 2021-09-10 06:03:00 Neena Bradford [facility] nch SCREEN W/O REFLEX XR CHEST 1 VW 2021-09-10 04:57:30 Neena Bradford [facility] CREATINE KINASE 2021-09-10 04:39:00 Neena Bradford [facility] MAGNESIUM 2021-09-10 04:39:00 Sanchez Neena [facility] TROPONIN I 2021-09-10 04:39:00 Neena Bradford [facility] COMP. METABOLIC PANEL 2021-09-10 04:39:00 Neena Bradford [facility] ([id number]) Medical [place] CBC WITH DIFF 2021-09-10 04:39:00 Neena Bradford [facility] PROTHROMBIN TIME / INR 2021-09-10 04:39:00 Neena Bradford [facility] ACTIVATED PARTIAL 2021-09-10 04:39:00 Neena Bradford [facility] THRMPLAS [facility] N-TERMINAL PRO-BNP 2021-09-10 04:39:00 Neena Bradford [facility] COVID-19 (ID NOW RAPID 2021-09-10 04:39:00 Neena Bradford [facility] TESTING) Medical Branch TROPONIN I 2021-09-09 21:49:00 DumontaIin buenrostro [facility] COMP. METABOLIC PANEL 2021-09-09 21:49:00 Iain Dumont [facility] ([id number]) Medical Branch LITHIUM 2021-09-09 21:49:00 DumontIain buenrostro [facility] CBC WITH DIFF 2021-09-09 21:49:00 [place] [facility] CONSENT/REFUSAL FOR 2021-09-09 19:51:22 Doctor Unassigned, No Un [facility] DIAGNOSIS AND TREATMENT Name Medical Branch URINALYSIS 2020-09-30 13:27:00 Chuy Jackson [facility] ADC,CLC OR LCC ONLY - 2020-09-30 13:27:00 [facility] INFLUENZA A & B DIRECT Medical B ranch ANTIGEN COVID-19 (ID NOW RAPID 2020-09-30 13:27:00 Chuy Jackson [facility] TESTING) Medical Branch Encounters Start End Encounter Admission Attending Care Care Encounter Source Date/Time Date/Time Type Type Clinicians Facility Department ID 2021-09-08 Outpatient Humaira-Mbayo VFP VFP [id number] [place] 02:24:16 _A_ [id number] Family Practic e 2021-09-07 Outpatient Humaira-Mbayo VFP VFP [id number] [place] 22:13:27 _A_AH [id number] Family Practic e 2021-09-07 Outpatient Humaira-Mbayo VFP VFP [id number] [place] 13:23:42 _A_ [id number] Family Practic e 2021-09-06 Outpatient Humaira-Mbayo VFP VFP [id number] [facility] 04:23:58 _A_AH 62225 Family Practic e 2021-09-05 Outpatient Bernadine [facility] [id number] [facility] 19:22:48 _A_AH 69726 Family Practic e 2019-01-22 Inpatient E [facility] MED [id number] [facility] W 04:39:00 2021-09-09 2021-09-10 Emergency Sanchez [facility] [id number] Univers 22:20:00 03:02:00 Neenashital HEMPHILLCHEN [id number] i ty of [place] 4.2.7.2.686 [facility] [id number] [address] 2021-09-09 2021-09-10 Emergency X SANCHEZ [facility] ERT [id number] Univers 22:20:00 03:02:00 NEENA tubbs [facility] 2021-09-09 2021-09-09 Emergency X HANSA [facility] ERT [id number] Univers 14:07:00 17:35:00 [facility] 2021-09-09 2021-09-09 Emergency Hansa [facility] [id number] Univers 14:07:00 17:35:00 Iain Hahn NICO [id number] i ty of [place] 4.2.7.2.686 [facility] [id number] [address] 2021-09-09 2021-09-09 Orders Doctor RIZVI [id number] Univers 00:00:00 00:00:00 Only Unassigned, LANA 350.1.13.10 ity of Early [facility] 4.2.7.2.686 Joe [id number] [facility] 009 Branch 2020-09-30 2020-09-30 DENIA Oneal [id number] 07:22:00 08:18:00 Chuy Jimenez 350.1.13.10 [place] 4.2.7.2.686 [place] [id number] 2020-09-30 2020-09-30 Emergency Singer [facility] [id number] Univers 07:22:00 08:18:00 Chuy Jimenez 350.1.13.10 i ty lev [place] 4.2.7.2.686 [facility] [id number] [facility] 084 Branch 2020-09-30 2020-09-30 Emergency X SINGER [facility] ERT [id number] Univers 07:22:00 07:22:00 CHUY tubbs [facility] 2020-03-04 2020-03-14 Inpatient 3 Chente [facility] PSY [id number] 15:38:00 15:25:00 [facility] 2019-01-22 2019-01-28 Inpatient [facility] [id number] Memoria 04:33:00 04:40:00 r Yonis 00 l [facility] 2018-02-21 2018-02-20 Inpatient E [facility] MED [id number] [id number] 14:48:00 13:18:00 [facility] Results Test Description Test Time Test Comments Results Result Comments Source TROPONIN I 2021-09-10 05:26:53 Test Item Value Reference Range Interpretation Comme nts TROPONIN I (test code = 0.003 ng/mL See_Comment [Au tomated message] The [id number]) system which ge nerated this result tra nsmitted reference range : <=0.034. The reference r katie was not used to int erpret this result as normal/abnormal . PERRY (test code = PERYR) Reference (Normal) Range (defined by the 99th [...] biotin. Lab Interpretation Normal (test code = 28531-5) [id number] 05:24:16 Test Item Value Reference Range Interpretation Comments NT-proBNP (test code 35 pg/mL See_Comment [Autom ated = [id number]) message] The system which generated this result transmitted reference range : <=125. The reference range was not used to interpret this result as normal/abnormal . PERRY (test code = PERRY) Biotin has been reported to cause a negative bias, interpret results relative to patient's use of biotin. Lab Interpretation Normal (test code = 04476-0) [facility] [place] [facility]2021-[facility]-17 05:16:51 Test Item Value Reference Range Interpretation Comments MAGNESIUM (test code = 1086745385) 1.8 mg/dL 1.7-2.4 Lab Interpretation (test code = Normal 17916-5) [facility]. METABOLIC PANEL ([id number])2021-09-10 05:16:31 Test Item Value Reference Range Interpretation Comments NA (test code = 139 mmol/L 135-145 4314023765) K (test code = 4.0 mmol/L 3.5-5.0 5674462350) CL (test code = 108 mmol/L 98-108 5414656986) CO2 TOTAL (test code 25 mmol/L 23-31 = 7745604724) AGAP (test code = 2-16 5635577931) BUN (test code = 14 mg/dL 7-23 5163601740) GLUCOSE (test code = 88 mg/dL 70-110 3481142716) CREATININE (test code 0.89 mg/dL 0.50-1.04 = 7680458420) TOTAL BILI (test code 0.5 mg/dL 0.1-1.1 = 2729562947) CALCIUM (test code = 10.3 mg/dL 8.6-10.6 8265338602) T PROTEIN (test code 6.9 g/dL 6.3-8.2 = 7267076615) ALBUMIN (test code = 4.3 g/dL 3.5-5.0 9545859155) ALK PHOS (test code = 72 U/L 34-122 6168322956) ALTv (test code = 17 U/L 5-35 1742-6) AST(SGOT) (test code 29 U/L 13-40 = 1458028321) eGFR (test code = mL/min/1.73m2 4988765575) PERRY (test code = PERRY) Association of [...] or urine or abnormalities in imaging tests). [facility] [place] [facility] [id number] 05:16:16 Test Item Value Reference Range Interpretation Comments CK (test code = 0244653113) 267 U/L 33-194 H Lab Interpretation (test code = Abnormal 00736-4) [facility]ACTIV[facility] PARTIAL THRMPLAS [id number] 05:05:32 Test Item Value Reference Range Interpretation Comments APTT Patient (test See_Comment [Automat ed code = 3173-2) message] The system which generated this result transmitted reference range : 23 - 38 Seconds . The reference range was not used to interpr et this result as normal/abnormal . PERRY (test code = PERRY) The [facility] patient population mean normal value for aPTT is 30 seconds. Lab Interpretation Normal (test code = 38106-0) [facility] HospitalPROTHROMBIN TIME / [id number] 05:03:30 Test Item Value Reference Range Interpretation [...] tions. Lab Interpretation (test Normal code = 62179-9) [facility]CB WITH [id number] 04:57:13 Test Item Value Reference Range Interpretation Comments WBC (test code = See_Comment [Automated 4790-2) message] The sy stem which generated this result transmitted reference range : 4.30 - 11.10 10*3/?L. The reference range was not used to interpret this result as normal/abnormal . RBC (test code = See_Comment [Automated 669-8) message] The sy stem which generated this [...] RDW-SD (test code = 41.2 fL 39.0-49.9 29782-3) RDW-CV (test code = 13.0 % 12.0-15.5 788-0) PLT (test code = See_Comment H [Automated 937-3) message] The sy stem which generated this result transmitted reference range : 166 - 358 10*3/ ?L. The reference r katie was not used to interpret this result as normal/abnormal . MPV (test code = 9.6 fL 9.5-12.9 85321-8) NRBC/100 WBC (test See_Comment [Automat ed code = 2388273687) message] The system which generated this result transmitted reference range : 0.0 - 10.0 /100 WBCs. The refer ence range was not u sed to interpret th is result as normal/abnormal . NRBC x10^3 (test code <0.01 See_Comment [Auto mated = 0428142343) message] The s ystem which generated this result transmitted reference range : 10*3/?L. The reference range was not used to interpret this result as normal/abnormal . GRAN MAT (NEUT) % 61.9 % (test code = 770-8) IMM GRAN % (test code 0.30 % = 0152563339) LYMPH % (test code = 26.0 % 736-9) MONO % (test code = 9.5 % 5905-5) EOS % (test code = 1.6 % 713-8) BASO % (test code = 0.7 % 706-2) GRAN MAT x10^3(ANC) 5.91 10*3/uL 1.88-7.09 (test code = 8375682350) IMM GRAN x10^3 (test 0.03 10*3/uL 0.00-0.06 code = 7596870900) LYMPH x10^3 (test code 2.48 10*3/uL 1.32-3.29 = 731-0) MONO x10^3 (test code 0.91 10*3/uL 0.33-0.92 = 742-7) EOS x10^3 (test code = 0.15 10*3/uL 0.03-0.39 711-2) BASO x10^3 (test code 0.07 10*3/uL 0.01-0.07 = 704-7) Lab Interpretation Abnormal (test code = 78970-3) [facility] HospitalJESSICA [id number] 22:24:55 Test Item Value Reference Interpretation Comments Range TROPONIN I (test 0.002 ng/mL See_Comment [Automated code = 8786715117) message] The system which generated this result [...] biotin. Lab Interpretation Normal (test code = 51840-1) [facility] HospitalLITHIUM2021-11-16 22:24:34 Test Item Value Reference Range Interpretation Comments [place] (test code = <0.2 0.6-1.2 L 9832026462) PERRY (test code = PERRY) Toxic Range: ? Greater than 1.2 mmol/L Lab Interpretation (test Abnormal code = 94211-4) [facility] HospitalCOMP. METABOLIC PANEL (16315)2021-09-09 22:13:54 Test Item Value Reference Range Interpretation Comments NA (test code = 139 mmol/L 135-145 9927999472) K (test code = 4.0 mmol/L 3.5-5.0 4058204147) CL (test code = 105 mmol/L 98-108 0548613974) CO2 TOTAL (test code 26 mmol/L 23-31 = 5626361084) AGAP (test code = 2-16 7503085226) BUN (test code = 11 mg/dL 7-23 2341050240) GLUCOSE (test code = 109 mg/dL 70-110 7596209025) CREATININE (test code 0.71 mg/dL 0.50-1.04 = 3123203995) TOTAL BILI (test code 0.6 mg/dL 0.1-1.1 = 4181900674) CALCIUM (test code = 10.4 mg/dL 8.6-10.6 3032372298) T PROTEIN (test code 7.6 g/dL 6.3-8.2 = 3239896998) ALBUMIN (test code = 4.7 g/dL 3.5-5.0 5518716389) ALK PHOS (test code = 78 U/L 34-122 5602527174) ALTv (test code = 19 U/L 5-35 2-6) AST(SGOT) (test code 28 U/L 13-40 = 1731384570) eGFR (test code = mL/min/1.73m2 0983671162) PERRY (test code = PERRY) Association of [...] or urine or abnormalities in imaging tests). [facility] WITH [id number] 22:03:32 Test Item Value Reference Range Interpretation Comments WBC (test code = See_Comment [Automated 6690-2) message] The sy stem which generated this [...] RDW-SD (test code = 40.2 fL 39.0-49.9 66502-8) RDW-CV (test code = 12.9 % 12.0-15.5 788-0) PLT (test code = See_Comment H [Automated 777-3) message] The sy stem which generated this result transmitted reference range : 166 - 358 10*3/ ?L. The reference r katie was not used to interpret this result as normal/abnormal . MPV (test code = 9.4 fL 9.5-12.9 L 10253-8) NRBC/100 WBC (test See_Comment [Automat ed code = 7618307888) message] The system which generated this result transmitted reference range : 0.0 - 10.0 /100 WBCs. The refer ence range was not u sed to interpret th is result as normal/abnormal . NRBC x10^3 (test code <0.01 See_Comment [Auto mated = 4188197023) message] The s ystem which generated this result transmitted reference range : 10*3/?L. The reference range was not used to interpret this result as normal/abnormal . GRAN MAT (NEUT) % 67.1 % (test code = 770-8) IMM GRAN % (test code 1.00 % = 3523093257) LYMPH % (test code = 21.4 % 736-9) MONO % (test code = 7.9 % 5905-5) EOS % (test code = 1.8 % 713-8) BASO % (test code = 0.8 % 706-2) GRAN MAT x10^3(ANC) 7.35 10*3/uL 1.88-7.09 H (test code = 6131476683) IMM GRAN x10^3 (test 0.11 10*3/uL 0.00-0.06 H code = 8025632635) LYMPH x10^3 (test code 2.34 10*3/uL 1.32-3.29 = 731-0) MONO x10^3 (test code 0.86 10*3/uL 0.33-0.92 = 742-7) EOS x10^3 (test code = 0.20 10*3/uL 0.03-0.39 711-2) BASO x10^3 (test code 0.09 10*3/uL 0.01-0.07 H = 704-7) Lab Interpretation Abnormal (test code = 11667-2) [facility] HospitalADC,CLC OR [facility] ONLY - INFLUENZA A & B DIRECT [id number] 14:04:00 Test Item Value Reference Range Interpretation Comments Influenza A (test code = 38121-0) Negative Negative Influenza B (test code = 43698-2) Negative Negative Lab Interpretation (test code = Normal 80542-9) [facility] HospitalCOVID-19 (ID NOW RAPID TESTING)2020-09-30 14:03:00 Test Item Value Reference Range Interpretation Comments SARS-CoV-2 Rapid ID NOW Not Detected Not Detected (test code = 60892-3) PERRY (test code = PERRY) ID NOW COVID-19 Assay is an isothermal nucleic acid amplification test intended for the qualitative detection of nucleic acid from SARS-CoV-2 viral RNA in nasopharyngeal (NAPHTHALENE OPERATOR HELPER) specimens. It is used under Emergency Use [...] indicated. Lab Interpretation Normal (test code = 84728-7) [facility] HospitalURINALYSIS2020-12-07 13:55:00 Test Item Value Reference Range Interpretation Comments APPEARANCE (test code = Hazy Clear A 9108091064) COLOR (test code = Yellow Yellow 3241115624) PH (test code = 4.8-8.0 2434145150) SP GRAVITY (test code = 1.003-1.030 5609981827) GLU U QUAL (test code = Normal Normal 9309730057) BLOOD (test code = Negative Negative 8417753147) KETONES (test code = 5 mg/dL Negative A 6109321084) PROTEIN (test code = Negative Negative 2887-8) UROBILIN (test code = 2.0 mg/dL Normal A 6447255948) BILIRUBIN (test code = Negative Negative 3318522235) NITRITE (test code = Negative Negative 9930765675) LEUK ROZINA (test code = 25/uL Negative A 1975466452) RBC/HPF (test code = See_Comment [Autom ated message] 3199759990) The system [employer] generated this result transmit ngozi reference range : 0 - 3 HPF. The refe rence range was not u sed to interpret th is result as normal/abnormal . WBC/HPF (test code = See_Comment [Autom ated message] 0101538784) The system [employer] generated this result transmit ngozi reference range : 0 - 5 HPF. The refe rence range was not u sed to interpret th is result as normal/abnormal . BACTERIA (test code = Few Negative A 3214421102) MUCOUS (test code = Slight Negative LPF A 0170062232) SQ EPITH (test code = HPF 0461330809) Lab Interpretation (test Abnormal code = 09952-3) [facility] HospitalRPR Lnrcfwsbhes1933-82-34 16:42:24 Test Item Value Reference Range Interpretation [...] = 10-24-2020 N Expiration Dt) Thyroid Stimulating Trjfits5451-85-41 08:35:16 Test Item Value Reference Range Interpretation Comments TSH (test code = TSH) 1.170 mIU/mL 0.270-4.200 Lipid Xdjqv9234-03-16 08:21:19 Test Item Value Reference Range Interpretation Comments Cholesterol Total 254 mg/dL 0-200 H RISK OF HE ART (test code = DISEASEPublishe d by Cholesterol Total) [place] [employer] Cathie lyte Optimal Borderl ine [...] calculation is LDL/HDL Ratio=L DL Calc/HDL Chol VVCMUGNQUPAV9184-55-89 08:24:008.6[facility] SdtlkijDWQVZCHQCXOI6102-66-39 08:24:19075Hwpwjqnz JjnozucMGAORJSKHCVS1332-35-35 08:24:0027[facility] LKRCSCBMKGVW7996-96-82 08:24:86822Eesbmyti YdmuyvfKQEGIPZBGXJF3286-87-94 08:24:003.6[facility] YdsblvwUQYMHGRRLNJO8449-47-01 08:24:000.70[facility] ZHVCVLFZTBTT3888-49-23 08:24:008.4[facility] MwcjmsjRNXEGJGRXVPV5641-90-76 08:24:85744Efahuqzj BmvpntmVHYQXVGVKRHK7655-20-86 08:24:0086[facility] VEIZJMMOMVYQ7271-48-47 08:24:006[facility] LmsbcowIQUVOZNZGJ7978-24-03 08:24:00 11.6[facility] UuloafsDPPMASDLZM5129-50-80 08:24:003.78[facility]annHEMATOLOGY 2019-01-26 08:24:0013.3[facility] QcvjqfiPPXEPLIFKD4413-98-98 08:24:0034.0[facility] UygluaoRKIXNINGFJ6952-57-20 08:24:006.3[facility] IckozucEKSZJDYVBG6860-80-36 08:24:00 Test Item Value Reference Range Interpretation Comments MCH (test code = MCH) 30.7 pg 27.0-31.0 [facility] KqgxqprNLIZNJFKKB5529-76-29 08:24:0090.3[facility] HermannHEMATOLOGY 2019-01-26 08:24:0034.2[facility] ZfbzgfdLWENTBBZHX0739-82-45 08:24:86842Tpslxnwz OeeiunbNNLJHLBSGM7246-66-24 08:24:007.5[facility] UhsgsehVOZJPPRGQFTE6661-81-06 08:24:008.6[facility] NiqafreWJBBMIIDUBAF5516-59-95 08:24:28505Wppizszn [facility] OKSMWXIJIPSS2244-12-55 08:24:0027[facility] AqymwywAIYUZPBCOGTP9219-17-42 08:24:00 139[facility] KgpaawyAFJCKLHAVAWX4834-91-08 08:24:003.6[facility] BVLPBWSGVHVD7323-02-31 08:24:000.70[facility] ImyepnaEQWPRZGFRWQZ3011-39-93 08:24:008.4[facility] DiieaxjAJASLMPGGVXK6853-08-09 08:24:34113Ppbbozly Yonis PLNQHDARZKFQ9593-69-79 08:24:0086[facility] RdohszkHVQLSLPAAWBD7882-79-05 08:24:00 6[facility] GieqrshHZEKDPROHU0020-85-87 08:24:0011.6[facility] HermannHEMATOLOGY 2019-01-26 08:24:003.78[facility] FzvcackXMSMLYQZWU2776-38-95 08:24:0013.3[facility] LtytjweAFIZPEGNNT1881-35-12 08:24:0034.0[facility] TricqjjKWTSEJZRZK7465-50-63 08:24:006.3[facility] BfaubuhLWDDROUMDN7861-16-66 08:24:00 Test Item Value Reference Range Interpretation Comments MCH (test code = MCH) 30.7 pg 27.0-31.0 [facility] PcrdxyaUXLGSSPHHI9508-90-18 08:24:0090.3[facility] HermannHEMATOLOGY 2019-01-26 08:24:0034.2[facility] QganfmcPRCTHMUILN3200-49-87 08:24:26831Wobbrymv PdxrcnxFMBORDRTCF7252-99-44 08:24:007.5[facility] HermannCHEM EYTXA2193-66-13 09:14:44098Lyrwzyau HermannCHEM FVOCJ1306-33-38 09:14:008.5[facility] HermannCHEM KYGDP6443-50-87 09:14:0013.3[facility]annCHEM UGTAB5386-74-11 09:14:0024 [facility]annCHEM KUDZI7038-75-97 09:14:63924Yihcvpoa HermannCHEM PANEL 2019-01-25 09:14:0081[facility] HermannCHEM FSULM1682-47-06 09:14:002[facility]annCHEM XDKDS3151-77-18 09:14:003.3[facility]annCHEM LJTPI8831-14-58 09:14:000.60[facility]annCHEM JUOXR8707-28-88 09:14:39947Whihrpss HermannCHEM ZULZM7892-64-67 09:14:99358Wnzuwacx [facility]annCHE[facility] QSQKD0478-59-22 09:14:008.5 [facility]annCHE[facility] LDEXL6396-19-60 09:14:0013.3[facility]annCHEM PANEL 2019-01-25 09:14:0024[facility]annCHEM NRJOK7284-43-12 09:14:83420Qnzofnhu [facility]annCHE[facility] DAIMY4416-33-77 09:14:0081[facility]annCHEM WHNLC2794-86-78 09:14:002[facility]annCHEM VAWDS3870-81-17 09:14:003.3[facility]annCHEM WHPRP8452-63-34 09:14:000.60[facility]annCHEM PAVPG9281-17-99 09:14:79877 [facility]annMOLECULAR IMXWINXVUK1289-03-13 16:22:00Negative (01/23/19 11:22 AM)[facility] HermannMOLECULAR VDOXSEPKQQ4536-34-08 16:22:00Negative (01/23/19 11:22 AM)[facility]annCHEM ELEGH0702-01-35 15:42:002.76[facility] HermannCHEM PANEL 2019-01-23 15:42:002.76[facility]annCHEM ZICIK8474-94-76 12:32:000.9[facility]annCHEM BGZNJ4096-87-89 12:32:000.9[facility]annCHEM KRMKO4224-99-91 10:50:002.0[facility]annCHEM IQQSH4691-14-96 10:50:50280Oedwgrzb [facility]annCHEM LQQMK8340-05-34 10:50:0023[facility]annCHEM IQLNH9223-96-53 10:50:58556 [facility]annCHEM INDAU6327-60-26 10:50:003.1[facility] HermannCHEM PANEL 2019-01-23 10:50:99185Yuvymfgr HermannCHEM JHMCM7173-47-63 10:50:005[facility] HermannCHEM KADCJ2839-61-19 10:50:000.50[facility] HermannCHEM CWYJD1361-97-87 10:50:007.8[facility]annCHEM QAJKR3650-08-97 10:50:0083[facility]annCHEM FJKUE2412-58-42 10:50:0010.1[facility] GhozpyuNAKCKMQJBO0956-07-30 10:50:000.2 [facility] DwitokrAXBFQCRPCW7970-35-33 10:50:000.8[facility] HermannHEMATOLOGY 2019-01-23 10:50:005.5[facility] JiwukaeKZGPWNYAOU2835-25-65 10:50:002.2[facility] DuhjpxlPUVFSMETEU8126-81-54 10:50:000.1[facility] YnoalqjUCGSVXGORY3393-80-39 10:50:0063.6[facility] DyeyarhFBQEUMTYJE3879-02-09 10:50:008.9[facility] MWARDONYIP5264-36-42 10:50:002.3[facility] CkxvbbyDEHEIWRRKH7256-00-14 10:50:00 Normal (01/23/19 5:50 AM)[facility] UornsyfYVNKSCUOYI2099-03-58 10:50:00Normal (01/23/19 5:50 AM)[facility] BkclrxzAMTLAGNUAX8397-82-97 10:50:0025.1[facility] UjorgvaIXCRJEVHCF0138-42-67 10:50:0013.1[facility] EaawinzHIKBQVSUKI9000-04-02 10:50:09688Smhybjpe NprwnthXSLJCTBGUO5656-65-29 10:50:007.7[facility] HVEENCMSLG3171-05-18 10:50:008.6[facility] HvikpwiYSLCIVQRQH6278-31-48 10:50:00 10.0[facility] WbzzdxcGOIRTOCIPL0900-74-18 10:50:0034.6[facility] HermannHEMATOLOGY 2019-01-23 10:50:0028.7[facility] SfwvufuYHFLDUUTNU3489-40-91 10:50:0087.8[facility] OcsivukVJDLTYFGYQ7426-90-71 10:50:00 Test Item Value Reference Range Interpretation Comments MCH (test code = MCH) 30.4 pg 27.0-31.0 [facility] PlwbgkaBYUWCKQPYN9544-00-19 10:50:003.27[facility] HermannHEMATOLOGY 2019-01-23 10:50:30995Khedecvz NphjfijSVYMXZXXBQ6162-83-09 10:50:007.7[facility] JjshmmuCIAHAWYAUQ7767-70-85 10:50:008.6[facility] AamlgodSKTGUFGKMA6427-80-82 10:50:0010.0[facility] KfihmscUSCSBXCYDI3671-80-04 10:50:0034.6[facility] OPJGUGJOAV5080-63-62 10:50:0028.7[facility] GaojgxbQDAJINDGBM4679-93-62 10:50:00 87.8[facility] SutgtmbRYPQEUBGYG9589-04-09 10:50:00 Test Item Value Reference Range Interpretation Comments MCH (test code = MCH) 30.4 pg 27.0-31.0 [facility] OxrwfioIOHFONWWAC3868-62-33 10:50:003.27[facility] HermannCHEM PANEL 2019-01-23 10:50:002.0[facility] HermannCHEM XPXLD8038-54-55 10:50:46941Jbdygcxq [facility]annCHEM TUHTJ7118-81-08 10:50:0023[facility]annCHEM VDGXQ2502-50-88 10:50:96222Qbhrzcfq [facility]CHE[facility] SNPLY0480-24-81 10:50:003.1[facility] HermannCHEM NXLJC2662-54-22 10:50:44287Gxzohatc [facility]annCHEM YRKWB3951-32-97 10:50:005 [facility]annCHEM GMHJE9542-88-95 10:50:000.50[facility] HermannCHEM PANEL 2019-01-23 10:50:007.8[facility] HermannCHEM PVOSX5945-11-39 10:50:0083[facility]annCHEM UCPZL4959-70-12 10:50:0010.1[facility] HbpwpcwOCABGXBLHD6256-76-63 10:50:000.2[facility] KfzjbxdNGSOMNSHYK0615-28-14 10:50:000.8[facility] SIADNHHMUU1231-56-95 10:50:005.5[facility] NzipueaEVEFHVCOUO1673-25-12 10:50:002.2 [facility] LznkenhIMCUOKYESP2571-19-89 10:50:000.1[facility] HermannHEMATOLOGY 2019-01-23 10:50:0063.6[facility] KnyuibfNOAXVWPQJD1159-20-74 10:50:008.9[facility] FxzmtotPDHBUFSROP1887-28-73 10:50:002.3[facility] InnsnjmWPAOMNOWCL3776-01-92 10:50:00Normal (01/23/19 5:50 AM)[facility] IdtbzazPSQMQLEJYE5506-33-39 10:50:00 Normal (01/23/19 5:50 AM)[facility] LhxhxwsWOHPMINRUS7257-92-51 10:50:0025.1[facility] WbiooghKODAKKTLJP2664-86-86 10:50:0013.1[facility] HermannCHEM XPBZY9673-29-26 11:32:002.4[facility] HermannCHEM ZPOAD1516-79-98 11:32:002.4[facility] HermannCHEM CKUBA0000-00-19 09:04:003.0[facility] HermannCHEM FKYVG8611-11-66 09:04:003.0 [facility]annUR[facility] AND QNRAN0542-20-67 07:14:00 Test Item Value Reference Range Interpretation Comments UA Spec Grav (test code = UA Spec 1.014 1 Grav) [facility] DXMFF4287-63-85 07:14:00 Test Item Value Reference Range Interpretation Comments UA pH (test code = UA pH) 6.0 1 5.0-8.0 [facility] FMEMS1860-76-24 07:14:00Negative (01/22/19 2:14 AM) [facility] WWHLP6472-10-09 07:14:00Negative *NA*(01/22/19 2:14 AM) [facility] KOHGV1453-85-90 07:14:00Negative *NA*(01/22/19 2:14 AM) [facility] WITYY8059-29-94 07:14:00Negative *NA*(01/22/19 2:14 AM) [facility] DGURM9369-91-56 07:14:00Negative (01/22/19 2:14 AM) [facility] XUALB8146-51-50 07:14:00Negative (01/22/19 2:14 AM) [facility] URQYD6437-91-33 07:14:00Negative (01/22/19 2:14 AM) [facility] LPJKG1793-40-48 07:14:00<1[facility] YOPAT8155-33-37 07:14:0025[facility]UR[facility] TZDPZ6056-27-86 07:14:002 [facility] NITUS2179-46-22 07:14:00Light Yellow *NA*(01/22/19 2:14 AM)[facility] KMALF9750-16-68 07:14:00Clear (01/22/19 2:14 AM) [facility] ZZXRJ8091-93-72 07:14:00 Test Item Value Reference Range Interpretation Comments UA Spec Grav (test code = UA Spec 1.014 1 Grav) [facility] QGZUE6674-89-33 07:14:00 Test Item Value Reference Range Interpretation Comments UA pH (test code = UA pH) 6.0 1 5.0-8.0 [facility] IEPFZ1856-73-86 07:14:00Negative (01/22/19 2:14 AM) [facility] BNCAS0089-22-10 07:14:00Negative *NA*(01/22/19 2:14 AM) [facility] UBQAJ3084-08-97 07:14:00Negative *NA*(01/22/19 2:14 AM) [facility] ZTHGV9477-47-34 07:14:00Negative *NA*(01/22/19 2:14 AM) [facility] OUDIZ3333-26-57 07:14:00Negative (01/22/19 2:14 AM) [facility] BSKBT3860-68-19 07:14:00Negative (01/22/19 2:14 AM) [facility] UBQNX8978-16-49 07:14:00Negative (01/22/19 2:14 AM) [facility] TDARD4624-49-77 07:14:00<1[facility] ZALHH3521-78-83 07:14:0025[facility] AKKJK6581-13-88 07:14:002 [facility] UGYEO7007-13-62 07:14:00Light Yellow *NA*(01/22/19 2:14 AM)[facility] DQHAC6376-03-94 07:14:00Clear (01/22/19 2:14 AM) [facility] NxkozdsVYNTH8945-87-81 05:16:000.90[facility] YgfpsmhWEBBW2425-72-83 05:16:000.90[facility] PheyjxvXUYNEKZHLQ5265-42-85 05:01:000.9[facility] YIKHEOGRCZ9515-83-81 05:01:008.6[facility] RhsonrrXPMSCTWRHD7317-67-29 05:01:000.6 [facility] AqrvuayULNTQNMCTT4510-89-11 05:01:0086.5[facility]annHEMATOLOGY 2019-01-22 05:01:005.7[facility] AwxjytcRTBTNXYCPK1956-32-23 05:01:006.9[facility] AadxqjdJGARFQVQPC1125-24-45 05:01:009.9[facility] KllombgROTBAHJUTZ1371-07-43 05:01:0032.8[facility] UgmhohmWWAQBUTFCO8889-05-79 05:01:0013.6[facility] KMLIDXBITO5463-61-34 05:01:48400Vnzcbvxv SxekmjzHWHTDLBKMG8384-95-19 05:01:007.3 [facility] RdrmlhgPJJTFNONDH9175-60-54 05:01:0014.0[facility]annHEMATOLOGY 2019-01-22 05:01:004.85[facility] EyjklfeDMDDGNEGJW6687-40-97 05:01:0042.7[facility] KmcefrrPDOMEHTXLQ0295-55-46 05:01:00 Test Item Value Reference Range Interpretation Comments MCH (test code = MCH) 29.0 pg 27.0-31.0 [facility] UyuyuoqSPOIGJTLIP6697-08-68 05:01:0088.2[facility]annHEMATOLOGY 2019-01-22 05:01:00 Test Item Value Reference Range Interpretation Comments INR (test code = INR) 0.96 1 0.85-1.17 [facility] VjofpayIWLDKTWNZN7776-00-11 05:01:00 Test Item Value Reference Range Interpretation Comments PT (test code = PT) 12.6 s 12.0-14.7 [facility]YJBJBCZE1871-59-09 05:01:00 Test Item Value Reference Range Interpretation Comments PTT (test code = PTT) 25.9 s 22.9-35.8 [facility]annBLOOD BANK WGQKWJW7760-80-61 05:01:00Negative (01/22/19 12:01 AM) [facility]annCARDIAC OUVDOQA8846-13-97 05:01:00<0.02[facility] CARDIAC RAPGBPI6282-74-60 05:01:0049[facility] HermannCHEM QQFRJ9217-50-83 05:01:000.6[facility] HermannCHEM RICYB7277-28-91 05:01:99743Phdbarmz HermannCHEM TACXR5950-44-12 05:01:004.0[facility]annCHEM VXTHZ7479-82-87 05:01:0017 [facility]annCHEM OTJCO7861-84-49 05:01:0025[facility]annCHEM PANEL 2019-01-22 05:01:008.1[facility]annCHE[facility] AVNUC0242-41-11 05:01:00 Test Item Value Reference Range Interpretation Comments B/C Ratio (test code = B/C Ratio) 20 1 6-25 [facility] OHQMF8707-44-83 05:01:00 Test Item Value Reference Range Interpretation Comments A/G Ratio (test code = A/G Ratio) 1.0 1 0.7-1.6 [facility] URYKQ4297-40-96 05:01:004.1[facility]annCHEM PANEL 2019-01-22 05:01:006.90[facility] KeonxrjGROTKWJBDFTHL0688-25-67 05:01:00Negative *NA*(01/22/19 12:01 AM)[facility] ZzavuwbSGZGEHIHSJ6428-32-62 05:01:000.1[facility] XdunmeuAYNGKLKPNO7046-60-74 05:01:000.7[facility] IvyczgxXIFMUPPGWD1941-82-13 05:01:000.0[facility] VdyretxJJSRNLQHJP8127-99-54 05:01:000.0[facility]is KWIGAHHPYV6308-59-29 05:01:000.9[facility] OkzgrncBAQYMUPXBZ7391-55-41 05:01:008.6 [facility] AkeuttiBCBXPPMCTI4865-40-21 05:01:000.6[facility]annHEMATOLOGY 2019-01-22 05:01:0086.5[facility] LbmrzroHNRJBYRNDX2578-10-32 05:01:005.7[facility] PsglzdlUEXOEPDVJK8517-35-33 05:01:006.9[facility] ZmtmoyeYEOVHTJXKV8077-14-08 05:01:009.9[facility] XunlywqWAAXVRFDAT1338-55-47 05:01:0032.8[facility] KEMXGHLLTS0064-32-84 05:01:0013.6[facility] WbmertfGBMPOCKWBR6893-62-43 05:01:00 443[facility] IidzaflAPOZOHNNSO9655-29-09 05:01:007.3[facility]annHEMATOLOGY 2019-01-22 05:01:0014.0[facility] ZaxbpzkSKCOIQDHMN3711-79-15 05:01:004.85[facility] QzrjrqmCWHTFAVKSK1613-84-93 05:01:0042.7[facility] GrjkpzbTJXPBQFOAK3516-34-74 05:01:00 Test Item Value Reference Range Interpretation Comments MCH (test code = MCH) 29.0 pg 27.0-31.0 [facility] PzufhzjYLMPDZRIWI8740-23-68 05:01:0088.2[facility]annHEMATOLOGY 2019-01-22 05:01:00 Test Item Value Reference Range Interpretation Comments INR (test code = INR) 0.96 1 0.85-1.17 [facility] AdfmojuDGMDSHHGZZ4336-31-06 05:01:00 Test Item Value Reference Range Interpretation Comments PT (test code = PT) 12.6 s 12.0-14.7 [facility] PvfvyaxAEJRMOUKWS5084-31-81 05:01:00 Test Item Value Reference Range Interpretation Comments PTT (test code = PTT) 25.9 s 22.9-35.8 [facility] QCWCAWH8656[facility]28-40 05:01:00Negative (01/22/19 12:01 AM) [facility] HermannCARDIAC DKFKFUP6419-31-21 05:01:00<0.02[facility] CARDIAC FXFXFZW9690-33-09 05:01:0049[facility]annCHEM GQWYJ1618-18-48 05:01:000.6[facility]annCHEM XCLQC7440-01-16 05:01:36756Ouqnbbwd HermannCHEM BLFPX2373-73-75 05:01:004.0[facility]annCHEM GZHIU4922-19-88 05:01:0017 [facility] HermannCHEM PZTRP7644-88-87 05:01:0025[facility]annCHEM PANEL 2019-01-22 05:01:008.1[facility]annCHEM IZIOC1944-92-74 05:01:00 Test Item Value Reference Range Interpretation Comments B/C Ratio (test code = B/C Ratio) 20 1 6-25 [facility] HermannCHEM XASZY4717-53-46 05:01:00 Test Item Value Reference Range Interpretation Comments A/G Ratio (test code = A/G Ratio) 1.0 1 0.7-1.6 [facility] HermannCHEM FTQJZ4424-76-35 05:01:004.1[facility]annCHEM PANEL 2019-01-22 05:01:006.90[facility] CenterUpxudidTAWXBLZIIWXDN2326-35-00 05:01:00Negative *NA*(01/22/19 12:01 AM)[facility] BwkrhkpLOIPCEDKHF8975-70-33 05:01:000.1[facility] VvqzlzdWHLHGOABOO8949-02-56 05:01:000.7[facility] ZvciscqPZHRABDESJ4217-23-65 05:01:000.0[facility] HvalbcaKXZHBVXXHS9393-48-77 05:01:000.0[facility] PqeobslOEC4J 2018-02-20 14:36:00 Test Item Value Reference Range [...] 0.00-0.01 N code = ETOHU) Comprehensive Metabolic Vlmrd2077-64-92 14:36:00 Test Item Value Reference Range Interpretation [...] the [employer],http :[email or web address] ep.nih.gov Urinalysis Unruyosk8099-01-57 14:32:00 Test Item Value Reference Range Interpretation Comments Color (test code = COLOR) Yellow Yellow,Straw,Pl N yellow Clarity (test code = Clear Clear N CLAR) Specific [place] (test 1.024 1.001-1.035 N code = SPGR) [...] code = Few /HPF BACT) CBC with Yezgjonoyoih8360-48-25 14:21:00 Test Item Value Reference Range Interpretation [...] code = ALYMPH) 3.0 K/cumm 0.5-4.6 N Bay Abs (test code = AMONO) 0.5 K/cumm 0.0-1.2 N Eos Abs (test code = AEOS) 0.19 K/cumm 0.00-0.74 N Baso Abs (test code = ABASO) 0.1 K/cumm 0.00-0.21 N
[2021-09-11] MEDS ORDERED: NA CHLORIDE 0.9% 1,000 ML ONE (20:29)
[2021-09-11] MEDS ORDERED: LORazepam 2 MG/ML VIAL ONE (20:29)
--- NOTE | 2021-09-11 20:39 | RAD REPORT ---
EXAM DESCRIPTION: CT - Head Brain Wo Cont - 09/11/2021 8:32 pm CLINICAL HISTORY: DIZZINESS COMPARISON: Head Brain Wo Cont dated 09/08/2021; Head Brain Wo Cont dated 08/28/2021 TECHNIQUE: All CT scans are performed using dose optimization technique as appropriate and may inclu de automated exposure control or mA/KV adjustment according to patient size. FINDINGS: No intracranial hemorrhage, hydrocephalus or extra-axial fluid collection.No areas of brai n edema or evidence of midline shift. The paranasal sinuses and mastoids are clear. The calvarium is intact. Nasal septal perforation. IMPRESSION: No acute intracranial abnormality.
[2021-09-11 21:15] LABS: Urine Blood Negative (Negative); Urine Glucose Negative (Negative); Urine Protein Negative (Negative); Urine pH 8.5 (5.0-7.0)
[2021-09-11 21:37] LABS: Absolute Lymphocytes (CBC) 2.4 K/uL (0.7-4.9); Basophils % 0.9 % (0-1.3); Hematocrit 36.6 % (36.0-45.0); Lymphocytes % 31.3 % (15.3-44.8); RBC Red Blood Cell Count 4.31 M/uL (3.86-4.86)
[2021-09-11 21:40] LABS: Protime INR 0.89
[2021-09-11 21:54] LABS: Barbiturates NEGATIVE (NEGATIVE); Benzodiazepines NEGATIVE (NEGATIVE); Cocaine NEGATIVE (NEGATIVE); METHAMPHETAM POSITIVE (NEGATIVE); Methadone NEGATIVE (NEGATIVE); Opiates NEGATIVE (NEGATIVE); Phencyclidine NEGATIVE (NEGATIVE); THC Cannibis NEGATIVE (NEGATIVE)
[2021-09-11 22:01] LABS: ALT/SGPT 23 U/L (12-78); AST/SGOT 26 U/L (15-37); Albumin 3.2 g/dL (3.4-5.0); Alkaline Phosphatase 64 U/L (45-117); BUN Blood Urea Nitrogen 8 mg/dL (7-18); Bicarbonate 26 mmol/L (21-32); Bilirubin Direct < 0.1 mg/dL (0-0.2); Bilirubin Total 0.3 mg/dL (0.2-1.0); Creatine Phosphokinase 179 U/L (26-192); Glucose Level 103 mg/dL (74-106); Protein, Total 6.5 g/dL (6.4-8.2); Sodium Level 142 mmol/L (136-145); Troponin (Emerg Dept Use Only) < 0.02 ng/mL (0.0-0.045)
[2021-09-11 22:16] LABS: Lithium 0.4 mmol/L (0.6-1.2)
[2021-09-11 22:19] LABS: Salicylates Level < 1.7 mg/dL (2.8-20)
--- NOTE | 2021-09-11 22:24 | ER ---
Nurse's Notes [facility] Name: Tiffany Quinn Age: 51 yrs Sex: Female : 1970 Arrival Date: 09/11/2021 Time: 18:18 Bed 6 Private MD: Diagnosis: Dizziness and giddiness;Anxiety disorder, unspecified;Methamphetamine Abuse Presentation: 09/11 18:20 Chief complaint: Patient states: "I was seen at [facility] earlier and It felt like my head ss was bobbing and it was making me feel like I was going to lose consciousness. Coronavirus screen: Client denies travel out of the [place] in the last 14 days. Ebola Screen: Patient denies exposure to infectious person. Patient denies travel to an Ebola-affected area in the 21 days before illness onset. Initial Sepsis Screen: Does the patient meet any 2 criteria? No. Patient's initial sepsis screen is negative. Does the patient have a suspected source of infection? No. Patient's initial sepsis screen is negative. Risk Assessment: Do you want to hurt yourself or someone else? Patient reports no desire to harm self or others. Onset of symptoms was September 11, 2021. 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 - Social history:: Smoking status: Patient denies any tobacco usage or history of. Patient uses street drugs, Methamphetamine (Meth). Screenin:44 Abuse screen: Denies threats or abuse. Denies injuries from another. Nutritional tw5 screening: No deficits noted. Tuberculosis screening: No symptoms or risk factors identified. Fall Risk No fall in past 12 months (0 pts). Secondary diagnosis (15 points) IV access (20 points). Ambulatory Aid-. Assessment: 20:44 General: Reports " after I went to [facility], I got home and I felt I was going to faint, so tw5 I wanted to get checked out, I have insurance.". General: Appears unkempt, Behavior is cooperative, anxious. Pain: Complains of pain in "[place]" Pain currently is 8 out of 10 on a pain scale. Neuro: Level of Consciousness is awake, alert, obeys commands, Oriented to person, place, time, situation. Cardiovascular: Rhythm is sinus rhythm. Respiratory: Airway is patent Trachea midline Respiratory effort is even, unlabored, Respiratory pattern is regular. : Urine is clear. 21:06 General: Reports " I feel like there is a door in the back of my head. I know that they tw5 are wire tapping my mom and I". 22:20 General: Behavior is agitated, anxious, Reports " I saw the doc under water, and I want tw5 my blood pressure rechecked. I didn't know if he could breath. I would like something for anxiety." Patient is exhibiting a flight of ideas. 22:44 Reassessment: Patient is alert, oriented x 3, equal unlabored respirations, skin bb warm/dry/pink. pt verbalized understanding of and agrees to plan of care discharge instructions given pt ambulated with steady gait to exit. Psych: 21:10 [place] Suicide Severity Screening: In the past month, have you wished you were tw5 or wished you could go to sleep and not wake up? Patient responds "No." "In the past month, have you actually had any thoughts of killing yourself?" Patient responds "no." "In your lifetime, have you ever done anything, started to do anything, or prepared to do anything to end your life?" Patient responds "no.". Subjective: Patient's mood is Delusions are persecutory. Objective: Patient is cooperative, restless, Speech is. Interventions: Urine collected and sent for urine drug test. Safety Checks: Personal items have not been removed. Patient uses methamphetamines. Vital Signs: 18:20 BP 138 / 81; Pulse 108; Resp 20; Temp 97.7(TE); Pulse Ox 100% on R/A; Weight 84.82 kg; ss Height 5 ft. 1 in. (154.94 cm); 20:44 BP 125 / 84; Pulse 90; Resp 20; Pulse Ox 98% on R/A; Pain 8/10; tw5 21:06 BP 140 / 95; Pulse 3; Resp 20; Pulse Ox 98% on R/A; tw5 22:20 BP 125 / 89; Pulse 93; Resp 30; Pulse Ox 100% on R/A; tw5 22:44 BP 130 / 97; Pulse 103; Resp 20 S; Pulse Ox 97% on R/A; bb 18:20 Body Mass Index 35.33 (84.82 kg, 154.94 cm) ED Course: 18:18 Patient arrived in ED. as 18:25 Triage completed. 18:25 Arm band placed on left wrist. 20:01 David Brown MD is Attending Physician. [facility] 20:20 Sheri Young is Primary Nurse. tw5 20:20 Assisted to bathroom. tw5 20:32 CT Head Brain wo Cont In Process Unspecified. EDMS 20:39 EKG done, by ED staff, reviewed by David Brown MD. tw5 20:40 Patient moved back from CT. tw5 20:43 Patient has correct armband on for positive identification. Bed in low position. Call tw5 light in reach. Side rails up X 1. Patient refused gown. environmental monitoring specialist on. Pulse ox on. NIBP on. Door closed. Noise minimized. Lights dimmed. Moved to private room. Warm blanket given. Verbal reassurance given. 21:06 Resting quietly. tw5 21:06 Initial lab(s) drawn, by me, sent to lab. Urine collected: clean catch specimen, tw5 cloudy, Amount Voided: 100mL. Missed attempt(s): 20 gauge in left hand. 22 gauge Bleeding controlled, band aid applied, catheter tip intact. 21:09 CPK Sent. tw5 21:09 Acetaminophen Level Sent. tw5 21:09 Troponin (emerg Dept Use Only) Sent. tw5 21:09 [place] Sent. tw5 21:09 Acetaminophen Sent. tw5 21:09 Basic Metabolic Panel Sent. tw5 21:09 CBC with Diff Sent. tw 21:09 ETOH Level Sent. tw5 21:09 Hepatic Function Sent. tw 21:09 PT-INR Sent. tw 21:09 Ptt, Activated Sent. tw5 21:09 Salicylate Sent. tw5 21:09 Urine Drug Screen Sent. tw5 22:23 Chilo Smith MD is Referral Physician. [facility] 22:44 No provider procedures requiring assistance completed. bb 22:45 pt did not have IV on discharge. bb Administered Medications: 22:39 Not Given (Physician Discretion): Ativan (LORazepam) 1 mg IVP once tw5 22:40 Not Given (Physician Discretion): NS 0.9% 1000 ml IV at 1000 ml once tw5 Outcome: 22:24 Discharge ordered by . [facility] 22:44 Discharged to home ambulatory. bb 22:44 Condition: stable 22:44 Discharge instructions given to patient, Instructed on discharge instructions, follow up and referral plans. Demonstrated understanding of instructions, follow-up care. 22:46 Patient left the ED. bb Signatures: Dispatcher [employer] EDMS Jewels Briggs Brenda, RN RN bb Smirch, Shelby, RN RN ss Holmes, Maurice, MD MD [facility] Sheri Young [facility]
--- NOTE | 2021-09-11 22:25 | EDPHYS ---
Physician Documentation [facility] Name: Tiffany Quinn Age: 51 yrs Sex: Female : 1970 Arrival Date: 09/11/2021 Time: 18:18 Bed 6 Private MD: ED Physician David Brown HPI: 09/11 20:28 This 51 yrs old Female presents to ER via Ambulatory with complaints of Anxiety. mh7 20:28 The patient presents with dizziness, feeling faint, lightheadedness. Onset: The mh7 symptoms/episode began/occurred today. Context: occurred at home, occurred while the patient was sitting. Modifying factors: The symptoms are alleviated by nothing, the symptoms are aggravated by changing position. Associated signs and symptoms: Pertinent negatives: abdominal pain, agitation, ataxia, blurred vision, chest pain, combativeness, confusion, diaphoresis, focal weakness, head injury, headache, nausea, numbness, palpitations, , seizure, shortness of breath, syncope, tingling, vomiting. Severity of symptoms: At their worst the symptoms were moderate today, in the emergency department the symptoms have improved moderately. Patient's baseline: Neuro: alert and fully oriented, Motor: no deficits, Ambulation: walks without assistance, Speech: normal. The patient has experienced similar episodes in the past, multiple times. The patient has been recently seen at the [facility] Emergency Department, this week. 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 - Social history:: Smoking status: Patient denies any tobacco usage or history of. Patient uses street drugs, Methamphetamine (Meth). ROS: 20:28 Constitutional: Negative for fever, chills, and weight loss, Eyes: Negative for injury, mh7 pain, redness, and discharge, ENT: Negative for injury, pain, and discharge, Neck: Negative for injury, pain, and swelling, Cardiovascular: Negative for chest pain, palpitations, and edema, Respiratory: Negative for shortness of breath, cough, wheezing, and pleuritic chest pain, Abdomen/GI: Negative for abdominal pain, nausea, vomiting, diarrhea, and constipation, Back: Negative for injury and pain, : Negative for injury, bleeding, discharge, and swelling, MS/Extremity: Negative for injury and deformity, Skin: Negative for injury, rash, and discoloration, Neuro: Negative for headache, weakness, numbness, tingling, and seizure. 20:28 Allergy/Immunology: Negative for hives, rash, and allergies, Endocrine: Negative for neck swelling, polydipsia, polyuria, polyphagia, and marked weight changes, Hematologic/Lymphatic: Negative for swollen nodes, abnormal bleeding, and unusual bruising. 20:28 Psych: Positive for anxiety, drug dependence, Negative for depression, alcohol dependence, auditory hallucinations, visual hallucinations, homicidal ideation, suicide gesture, suicidal ideation. Exam: 20:28 Head/Face: Normocephalic, atraumatic. Eyes: Pupils equal round and reactive to light, mh7 extra-ocular motions intact. Lids and lashes normal. Conjunctiva and sclera are non-icteric and not injected. Cornea within normal limits. Periorbital areas with no swelling, redness, or edema. Neck: Trachea midline, no thyromegaly or masses palpated, and no cervical lymphadenopathy. Supple, full range of motion without nuchal rigidity, or vertebral point tenderness. No Meningismus. Chest/axilla: Normal chest wall appearance and motion. Nontender with no deformity. No lesions are appreciated. 20:28 Respiratory: Lungs have equal breath sounds bilaterally, clear to auscultation and percussion. No rales, rhonchi or wheezes noted. No increased work of breathing, no retractions or nasal flaring. Abdomen/GI: Soft, non-tender, with normal bowel sounds. No distension or tympany. No guarding or rebound. No evidence of tenderness throughout. Back: No spinal tenderness. No costovertebral tenderness. Full range of motion. Skin: Warm, dry with normal turgor. Normal color with no rashes, no lesions, and no evidence of cellulitis. MS/ Extremity: Pulses equal, no cyanosis. Neurovascular intact. Full, normal range of motion. Neuro: Awake and alert, GCS 15, oriented to person, place, time, and situation. Cranial nerves II-XII grossly intact. Motor strength 5/5 in all extremities. Sensory grossly intact. Cerebellar exam normal. Normal gait. 20:28 Constitutional: The patient appears in no acute distress, alert, awake, anxious. 20:28 Cardiovascular: Rate: tachycardic, Rhythm: regular, Pulses: no pulse deficits are appreciated, Heart sounds: normal, normal S1and S2, Edema: is not appreciated, JVD: is not appreciated. 20:28 Psych: Behavior/mood is anxious, Affect is animated, Oriented to person, place, time, Patient has no thoughts/intents to harm self or others. Judgement / Insight is normal. Memory is normal. Delusions/hallucinations are not present. Vital Signs: 18:20 BP 138 / 81; Pulse 108; Resp 20; Temp 97.7(TE); Pulse Ox 100% on R/A; Weight 84.82 kg; ss Height 5 ft. 1 in. (154.94 cm); 20:44 BP 125 / 84; Pulse 90; Resp 20; Pulse Ox 98% on R/A; Pain 8/10; tw5 21:06 BP 140 / 95; Pulse 3; Resp 20; Pulse Ox 98% on R/A; tw5 22:20 BP 125 / 89; Pulse 93; Resp 30; Pulse Ox 100% on R/A; tw5 22:44 BP 130 / 97; Pulse 103; Resp 20 S; Pulse Ox 97% on R/A; bb 18:20 Body Mass Index 35.33 (84.82 kg, 154.94 cm) ss MDM: 22:19 Differential diagnosis: cardiac arrhythmia, hypovolemia, idiopathic dizziness, mh7 near-syncope, syncope, vertigo, Substance abuse. Data reviewed: vital signs, nurses notes, old medical records, lab test result(s), cardiac enzymes, CBC, drug level(s), acetaminophen, alcohol, electrolytes, urine drug screen, EKG, radiologic studies, CT scan. Data interpreted: Pulse oximetry: on room air is 98 %. Interpretation: normal. Counseling: I had a detailed discussion with the patient and/or guardian regarding: the historical points, exam findings, and any diagnostic results supporting the discharge/admit diagnosis, lab results, radiology results, the need for outpatient follow up, a psychiatrist. Response to treatment: the patient's symptoms have resolved after treatment, the patient's blood pressure is in an acceptable range, mental status has returned to baseline, the patient no longer shows bradycardia, the patient is not short of breath, the patient is not tachycardic, the patient's pain is gone. 22:24 Patient medically screened. [facility] 09/11 20:20 Order name: Acetaminophen [facility] 09/11 20:20 Order name: Basic Metabolic Panel; Complete Time: 22:18 [facility] 09/11 20:20 Order name: CBC with Diff; Complete Time: 21:49 [facility] 09/11 20:20 Order name: ETOH Level; Complete Time: 22:18 [facility] 09/11 20:20 Order name: Hepatic Function; Complete Time: 22:18 [facility] 09/11 20:20 Order name: PT-INR; Complete Time: 21:49 [facility] 09/11 20:20 Order name: Ptt, Activated; Complete Time: 21:49 [facility] 09/11 20:20 Order name: Salicylate; Complete Time: 22:24 [facility] 09/11 20:20 Order name: Urine Drug Screen; Complete Time: 22:18 [facility] 09/11 20:20 Order name: [place]; Complete Time: 22:24 [facility] 09/11 20:20 Order name: Troponin (emerg Dept Use Only); Complete Time: 22:18 [facility] 09/11 20:21 Order name: CPK; Complete Time: 22:18 [facility] 09/11 20:21 Order name: Acetaminophen Level; Complete Time: 22:18 [facility] 09/11 21:15 Order name: Urine Dipstick-Ancillary; Complete Time: 21:49 [facility] 09/11 20:20 Order name: EKG; Complete Time: 20:21 [facility] 09/11 20:20 Order name: EKG - Nurse/Tech; Complete Time: 20:40 [facility] 09/11 20:20 Order name: Labs collected and sent; Complete Time: 21:09 [facility] 09/11 20:20 Order name: Suicide Screening ([place]); Complete Time: 21:09 [facility] 09/11 20:20 Order name: Urine Dipstick-Ancillary (obtain specimen); Complete Time: 21:11 [facility] 09/11 20:22 Order name: CT Head Brain wo Cont; Complete Time: 20:44 [facility] Administered Medications: 22:39 Not Given (Physician Discretion): Ativan (LORazepam) 1 mg IVP once tw5 22:40 Not Given (Physician Discretion): NS 0.9% 1000 ml IV at 1000 ml once tw5 Disposition Summary: 09/11/21 22:24 Discharge Ordered Location: Home [facility] Problem: an ongoing problem [facility] Symptoms: have improved [facility] Condition: Stable [facility] Diagnosis - Dizziness and giddiness 7 - Anxiety disorder, unspecified 7 - Methamphetamine Abuse [facility] Followup: [facility] - With: Private Physician - When: 1 - 2 days - Reason: Worsening of condition, Recheck today's complaints, Continuance of care, Re-evaluation by your physician Followup: [facility] - With: Chilo Smith MD - When: 2 - 3 days - Reason: Worsening of condition, Recheck today's complaints Discharge Instructions: - Discharge Summary Sheet [facility] - Methamphetamines Use Disorder [facility] - Generalized Anxiety Disorder, Adult 7 - Dizziness, [id number] [facility] Forms: - Medication Reconciliation Form [facility] - Thank You Letter [facility] - Antibiotic Education [facility] - Prescription Opioid Use [facility] Signatures: Dispatcher [employer] Preethi Veloz RN RN David Messina MD MD 7 Sheri Young Corrections: (The following items were deleted from the chart) 22:40 20:20 IV Saline Lock ordered. [facility]
[2021-09-12 00:20] VITALS: BP 130/97; O2SAT 97
--- NOTE | 2021-09-12 13:18 | EKG ---
Test Date: 2021-09-11 Test Time: 20:39:55 Heel Varnisher: TW MEASUREMENT RESULTS: Intervals: Rate: 91 LA: 144 QRSD: 88 QT: 380 QTc: 467 [place]: P: 25 LA: 144 QRS: -27 T: 1 INTERPRETIVE STATEMENTS: Normal sinus rhythm RSR' or QR pattern in V1 suggests right ventricular conduction delay Possible Anterior infarct, age undetermined Abnormal ECG Compared to ECG 09/08/2021 20:59:09 RSR' in V1 or V2 now present Sinus tachycardia no longer present Myocardial infarct finding still present Electronically Signed On 09-12-21 13:16:19 BEAN WEIGHER by Tito Smiley
== END 2021-09-11 22:46 | disposition home or self-care (01) ==
LOC: ER 18:15
DX: F41.9 Anxiety disorder, unspecified (principal); F15.10 Other stimulant abuse, uncomplicated; Z88.5 Allergy status to narcotic agent; Z88.8 Allergy status to other drugs, medicaments and biological substances
CPT/HCPCS: 93005; 85025; 80048; 36415; 80320; 82550; 80329 ×2; 85610; 80178; 80076; 85730; 81003; 84484; 80307; 70450; 99285; J7030

== ENCOUNTER 2021-09-12 13:21 | Emergency (ER) | payer OTHER ==
--- OUTSIDE RECORDS SUMMARY | 2021-09-12 13:28 | XMS REPORT | Continuity of Care Document ---
:1970 Author Organization [facility] t Address [address] [place] [address] Care Team Providers Name Role Phone UNKNOWN [...] Policy Number Effective Date Expiration Date S [facility] OF [place] - [id number] 2020 [place] 00:00:00 (MEDICARE REPLACEMENT/ADVANT AGE - [...] GASTROENTE RITIS AND COLITIS Active 01/21/2019 [facility] Irregular Irregular Disease Active Uni vers menstrual menstrual 8-15 ity of cycle cycle 00:00: [address] Skin Skin Disease Active Univers lesion lesion 8-15 ity of 00:00: [address] Psychiatri Psychiatri Disease Active U nivers c disorder c disorder 8-15 it y of 00:00: [address] Well woman Well woman Disease Active U nivers exam with exam with 8-15 ity of routine routine 00:00: [place] gynecologi gynecologi 00 Me dical nicky exam nicky exam Branch INFECTIOUS Diagnosis Active 2019-02-06 Memoria GASTROENTE 08:58:00 l RITIS AND Yonis COLITIS, INFECTIOUS GASTROENTE RITIS AND COLITIS, Active [facility] Allergies, Adverse Reactions, Alerts Allergy Allergy Status Severity Reaction(s) Onset Inactive Treating Comm ents Source Name Type Date Date Clinician NO KNOWN Drug Active Univers ALLERGIE Class ity of S [facility] Phenerga Phenerga Active [place] win[place] Social History Social Habit Start Date Stop Date Quantity Comments Source History of Cigarette Smoker Universi ty of tobacco use [facility] Tobacco Comment 2-3 cigs a day [facility] Exposure to Not sure [place] of SARS-CoV-2 [facility] [place] (event) [place] Tobacco use and 2016-06-08 2016-06-08 Never used Universit y of exposure 00:00:00 00:00:00 [facility] Alcohol intake 2016-06-08 2016-06-08 0 /d University of 00:00:00 00:00:00 [facility] Sex Assigned At [birth year] Universit y of 00:00:00 00:00:00 [facility] Smoking Status Start Date Stop Date Source Social History 2019-01-22 05:00:12 [facility] Her urena Current some day smoker 2016-06-08 00:00:00 [facility] Medications Ordered Filled Start Stop Current Ordering Indication Dosage Frequency Signature Comments Components Source Medication Medication Date Date Medication? Clinician (SIG) Name Name cefTRIAXone 2020-10- No 1000mg 1,000 mg, Univers (ROCEPHIN) 17 11-17 IV ity of 1,000 mg in 08:30: 08:01 [place], [place] NaCl 0.9% 00 :00 ONCE, 1 [...] 09/09/21 at 2330, RANDA amoxicillin 2020-10 Yes [id number] 500mg Take 1 Univers 500 mg 11-10 capsule by ity of capsule 00:00: mouth 3 [place] 00 (three) Medical times Branch daily. ondansetron 2019-10- No 4mg 4 mg, [facility] ers (ZOFRAN-ODT -05 05- Oral, ity of ) 15:15: 14:16 ONCE, 1 [place] disintegrat 00 :00 dose, Mon Med ical ing tablet 09/30/20 at [facility] 4 mg 0915, Routine ondansetron 2019-10- No 4mg 4 mg, [facility] ers (ZOFRAN-ODT 12-01- Oral, ity of ) 14:30: 13:32 ONCE, 1 [place] disintegrat 00 :00 dose, Mon Med ical ing tablet 09/30/20 at [facility] 4 mg 0830, Routine ondansetron 2019-10 Yes [id number] 4mg Take 1 Univers 4 mg 2-07 tablet by ity of disintegrat 00:00: mouth [place] ing tablet 00 every 8 Medica l (eight) Branch hours as needed for Nausea and Vomiting (N/V). ondansetron 2019-10 Yes [id number] 4mg Take 1 Univers 4 mg 2-07 tablet by ity of disintegrat 00:00: mouth [place] ing tablet 00 every 8 Medica l (eight) Branch hours as needed for Nausea and Vomiting (N/V). ondansetron 2019-10 Yes [id number] 4mg Take 1 Univers 4 mg 2-07 tablet by ity of disintegrat 00:00: mouth [place] ing tablet 00 every 8 Medica l (eight) Branch hours as needed for Nausea and Vomiting (N/V). ondansetron 2019-10 Yes [id number] 4mg Take 1 Univers 4 mg 2-07 tablet by ity of disintegrat 00:00: mouth [place] ing tablet 00 every 8 Medica l (eight) Branch hours as needed for Nausea and Vomiting (N/V). ciprofloxac Yes 500 mg = 1 Memoria in 500 mg 4-04 tab, PO, l oral tablet 17:35: [id number], X Yonis 00 4 day, # 8 tab, 0 Refill(s) Ondansetron Yes 4 mg = 1 Me moria 4 MG Oral 4-04 tab, PO, l Tablet 17:35: Q6H, PRN [place] [Zofran] 00 Nausea/Vom iting, # 20 tab, [...] 4-04 tab, PO, l oral tablet 17:35: [id number], X Yonis 00 4 day, # 8 [...] s with feeding tube less than 14 [place] (Dobhoff, J-tube etc) and pediatric and patients. Potassium No Notes: Memori a Chloride 4-03 (Same as: l 13:26: K-Dur 20) [place] "Do Not Crush" Give with food and full glass of water For patients unable to swallow tablet, dissolve in one half glass of water. Allow about 2 minutes for the tablets to disintegra te. Stir before giving to prepare slurry and administer . Please exclude Patient s with feeding tube less than 14 [place] (Dobhoff, J-tube etc) and pediatric and patients. Strattera No 0.5 mg/kg, Me moria 01-24 Route: PO, l 14:00: QAM, Yonis 00 Dosing Weight 75, kg, Start date: 01/24/19 9:00:00 CDT, Duration: 30 day, Stop date: 02/22/19 9:00:00 CDT Strattera 2018-0 No 0.5 mg/kg, Me moria 02 Route: PO, l 14:00: QAM, [place] 00 Dosing Weight 75, kg, Start date: [...] ia 4- (Same As: l 18:00: KlonoPIN) [place] 00 Clonazepam No Notes: Memor ia 4- (Same As: l 18:00: KlonoPIN) Yonis 00 Flagyl No Notes: Memoria 4- (Same as: l 15:00: Flagyl) [place] 00 Take with food/ avoid alcohol Cipro No Notes: May Memori a 01-23 interfere l 15:00: w/enteral [place] 00 feedings - Take 1 hr before or 2 hrs after antacids, dairy pdt & minerals. On empty stomach. Flagyl No Notes: Memoria 4- (Same as: l 15:00: Flagyl) [place] 00 Take with food/ avoid alcohol Cipro No Notes: February Memori a - interfere l 15:00: w/enteral [place] 00 feedings - Take 1 hr before [...] MG 01 PO, l Oral Tablet 14:20: [id number], 0 Yonis [Cipro] 00 Refill(s) potassium Yes 40 mEq, Memor ia chloride 20 -01 PO, ONCE, l mEq oral 14:20: 0 [place] tablet, 00 Refill(s) extended release Metronidazo No 500 mg, Mem oria le 500 MG 4-01 PO, l Oral Tablet 14:20: [id number], 0 H ermann [Flagyl] 00 Refill(s) Ciprofloxac No 500 mg, Mem oria in 500 MG 4-01 PO, l Oral Tablet 14:20: [id number], 0 Yonis [Cipro] 00 Refill(s) Potassium No Notes: Memori a Chloride - (Same as: l 14:17: K-Dur 20) [place] 00 "Do Not Crush" Give with food and full glass of water For patients unable to swallow tablet, dissolve in one half glass of water. Allow about 2 minutes for the tablets to disintegra te. Stir before giving to prepare slurry and administer . Please exclude Patient s with feeding tube less than 14 [place] (Dobhoff, J-tube etc) and pediatric and patients. Potassium No Notes: Memori a Chloride - (Same as: l 14:17: K-Dur ) [place] 00 "Do Not Crush" Give with food and full glass of water For patients unable to swallow tablet, dissolve in one half glass of water. Allow about 2 minutes for the tablets to disintegra te. Stir before giving to prepare slurry and administer . Please exclude Patient s with feeding tube less than 14 [place] (Dobhoff, J-tube etc) and pediatric and patients. Pepcid No Notes: Memoria 3-31 (Same as: l 22:00: Pepcid) Yonis 00 Pepcid No Notes: Memoria 3-31 (Same as: l 22:00: Pepcid) [place] 00 Strattera Yes 0.5 mg/kg, Me moria [...] 3-31 PO, QAM, 0 l 21:08: Refill(s) [place] 00 lithium 450 2018- Yes 450 mg [...] 3-31 Route: IM, l 09:47: Drug form: [place] 00 PDR/INJ, PRN, Dosing Weight 75.994, kg, PRN Blood Glucose Results, Start date: 01/22/19 4:47:00 CDT, Duration: 30 day, Stop date: 02/21/19 4:46:00 CDT Dextrose No 12.5 gm, Memor ia 50% Syringe 3-31 25 mL, l 09:47: Route: [place] 00 IVP, Drug Form: INJ, Dosing Weight [...] moria IV 3-31 1,000 l 08:52: ml/hr, [place] 00 Infuse Over: 1 hr, Route: IV, [...] (KLONOPIN 8-15 mouth. ity of ORAL) 19:02: [address] Branch CITALOPRAM 2016-0 Yes Take by Uni vers HYDROBROMID 8-15 mouth. ity of E 19:02: [place] (CITALOPRAM 27 Medical ORAL) Branch ibuprofen 2016-0 Yes 200mg Take 200 Uni vers (ADVIL) 200 8-15 mg by ity of mg tablet 14:02: mouth [place] [address] every 6 Medical (six) Branch hours as needed. CLONAZEPAM 2016-0 Yes Take by Uni vers (KLONOPIN 8-15 mouth. ity of ORAL) 14:02: [place] [address] Medical Branch CITALOPRAM 2016-0 Yes Take by Uni vers HYDROBROMID 8-15 mouth. ity of E 14:02: [place] (CITALOPRAM 27 Medical ORAL) Branch ibuprofen 2016-0 Yes 200mg Take 200 Uni vers (ADVIL) 200 8-15 mg by ity of mg tablet 14:02: mouth [place] [address] every 6 Medical (six) Branch hours as needed. CLONAZEPAM 2016-0 Yes Take by Uni vers (KLONOPIN 8-15 mouth. ity of ORAL) 14:02: [address] Branch CITALOPRAM 2016-0 Yes Take by Uni vers HYDROBROMID 8-15 mouth. ity of E 14:02: [place] (CITALOPRAM 27 Medical ORAL) Branch ibuprofen 2016-0 Yes 200mg Take 200 Uni vers (ADVIL) 200 8-15 mg by ity of mg tablet 14:02: mouth [place] [address] every 6 Medical (six) Branch hours as needed. CLONAZEPAM 2016-0 Yes Take by Uni vers (KLONOPIN 8-15 mouth. ity of ORAL) 14:02: [address] Branch CITALOPRAM 2016-0 Yes Take by Uni vers HYDROBROMID 8-15 mouth. ity of E 14:02: [place] (CITALOPRAM 27 Medical ORAL) Branch misoprostol 2016-0 [...] H it y of en-caff 00:00: PRN. [place] (ESGIC) 00 Medical 50-325-40 Branch mg tablet butalbital- 2016-0 Yes TK 1 TO 2 U nivers acetaminoph 8-01 T PO Q 8 H it y of en-caff 00:00: PRN. [place] (ESGIC) 00 Medical 50-325-40 Branch mg tablet butalbital- 2016-0 Yes TK 1 TO 2 U nivers acetaminoph 8-01 T PO Q 8 H it y of en-caff 00:00: PRN. [place] (ESGIC) 00 Medical 50-325-40 Branch mg tablet butalbital- 2016-0 Yes TK 1 TO 2 U nivers acetaminoph 8-01 T PO Q 8 H it y of en-caff 00:00: PRN. [place] (ESGIC) 00 Medical 50-325-40 Branch mg tablet dextroamphe 2015-0 Yes TK 1 T PO U nivers tamine-amph 7-20 BID. ity of etamine 00:00: [place] (ADDERALL) 00 Medical 20 mg Branch tablet dextroamphe 2015-0 Yes TK 1 T PO U nivers tamine-amph 7-20 BID. ity of etamine 00:00: [place] (ADDERALL) 00 Medical 20 mg Branch tablet dextroamphe 2015-0 Yes TK 1 T PO U nivers tamine-amph 7-20 BID. ity of etamine 00:00: [place] (ADDERALL) 00 Medical 20 mg Branch tablet [...] 2021-09-10 08:01:00 138 mm[Hg] Univer sity of [facility] Diastolic blood 2021-09-10 08:01:00 97 mm[Hg] [facility] Heart rate 2021-09-10 08:01:00 87 /min [facility] Respiratory rate 2021-09-10 08:01:00 20 /min [facility] saturation in 2021-09-10 08:01:00 98 /min University of Arterial blood by [facility] Pulse oximetry [place] Body temperature 2021-09-10 04:28:51 37.17 Ruthann [facility] Body height 2021-09-10 04:26:00 154.9 cm [facility] Body weight 2021-09-10 04:26:00 81.647 kg [facility] BMI 2021-09-10 04:26:00 34.01 kg/m2 [facility] Systolic blood 2021-09-09 20:06:00 150 mm[Hg] Univer sity [facility] Diastolic blood 2021-09-09 20:06:00 89 mm[Hg] Unive rsity of [facility] Heart rate 2021-09-09 20:06:00 108 /min [facility] Body temperature 2021-09-09 20:06:00 37.22 Ruthann [facility] Respiratory rate 2021-09-09 20:06:00 18 /min [facility] O[facility] saturation in 2021-09-09 20:06:00 99 /min University of Arterial blood by [facility] Pulse oximetry Branch Body weight 2021-09-09 20:05:00 81.647 kg Universi ty of [place] [facility] BMI 2021-09-09 20:05:00 32.40 kg/m2 Universi ty [facility] [place] [facility] Systolic blood 2020-09-30 14:00:00 126 mm[Hg] Univer sity of pressure [place] [facility] Diastolic blood 2020-09-30 14:00:00 84 mm[Hg] Unive rsity of pressure [place] [facility] Heart rate 2020-09-30 14:00:00 79 /min Universi ty of [place] [facility] Oxygen saturation in 2020-09-30 14:00:00 98 /min University of Arterial blood by [facility] Pulse oximetry Branch Body temperature 2020-09-30 13:26:00 37.22 Ruthann Univ ersity of [place] [facility] Respiratory rate 2020-09-30 13:26:00 16 /min Univ ersity of [place] [facility] Body weight 2020-09-30 13:26:00 72.576 kg Universi ty [facility] [place] [facility] BMI 2020-09-30 13:26:00 28.80 kg/m2 [facility]i ty [facility] [place] [facility] Systolic blood 2020-09-30 14:00:00 126 mm[Hg] Univer sity of pressure [place] [facility] Diastolic blood 2020-09-30 14:00:00 84 mm[Hg] Unive rsity of pressure [place] [facility] Heart rate 2020-09-30 14:00:00 79 /min Universi ty of [place] [facility] Oxygen saturation in 2020-09-30 14:00:00 98 /min University of Arterial blood by [facility] Pulse oximetry Branch Body temperature 2020-09-30 13:26:00 37.22 Ruthann Univ ersity of [place] [facility] Respiratory rate 2020-09-30 13:26:00 16 /min Univ ersity of [place] [facility] Body weight 2020-09-30 13:26:00 72.576 kg Universi ty [facility] [place] [facility] BMI 2020-09-30 13:26:00 28.80 kg/m2 [facility]i ty [facility] [place] [facility] Temperature Oral (F) 2019-01-28 01:16:00 98.6 F Memorial [place] Systolic (mm Hg) 2019-01-28 01:16:00 Estrada nadir Yonis Diastolic (mm Hg) 2019-01-28 01:16:00 Mem orial [place] Heart Rate 2019-01-28 01:16:00 [facility] [place] Respitory Rate 2019-01-28 01:16:00 Memori al Yonis Systolic (mm Hg) 2019-01-27 20:42:00 Estrada rial [place] Diastolic (mm Hg) 2019-01-27 20:42:00 Mem orial [place] Heart Rate 2019-01-27 20:42:00 Memorial [place] Respitory Rate 2019-01-27 20:42:00 Memori al [place] Temperature Oral (F) 2019-01-27 20:42:00 98.5 F [facility] [place] Systolic (mm Hg) 2019-01-27 17:00:00 Estrada rial [place] Diastolic (mm Hg) 2019-01-27 17:00:00 Mem orial Yonis Temperature Oral (F) 2019-01-27 17:00:00 98.5 F Memorial [place] Heart Rate 2019-01-27 17:00:00 [facility] [place] Respitory Rate 2019-01-27 17:00:00 Wicho chagn Yonis Height 2019-01-22 14:35:00 [facility] BMI Calculated 2019-01-22 14:35:00 [facility] [place] Weight 2019-01-22 14:35:00 [facility] Yonis Weight 2019-01-22 04:34:00 [facility] Yonis Procedures Procedure Date / Time Performing Clinician Source Performed URINALYSIS 2021-09-10 06:03:00 Neena Bradford [facility] URINE DRUG (IMMUNOASSAY) 2021-09-10 06:03:00 Neena Bradford [facility] nch SCREEN W/O REFLEX XR CHEST 1 VW 2021-09-10 04:57:30 Neena Bradford [facility] CREATINE KINASE 2021-09-10 04:39:00 Neena Bradford [facility] MAGNESIUM 2021-09-10 04:39:00 Sanchez Neena [facility] TROPONIN I 2021-09-10 04:39:00 Neena Bradford [facility] COMP. METABOLIC PANEL 2021-09-10 04:39:00 Neena Bradford [facility] ([id number]) Medical [place] CBC WITH DIFF 2021-09-10 04:39:00 Neena Bradford [facility] PROTHROMBIN TIME / INR 2021-09-10 04:39:00 Neena Bradford [facility] ACTIVATED PARTIAL 2021-09-10 04:39:00 Neena Bradford [facility] THRMPLAS [facility] N-TERMINAL PRO-BNP 2021-09-10 04:39:00 Neena Bradford [facility] COVID-19 (ID NOW RAPID 2021-09-10 04:39:00 Neena Bradford [facility] TESTING) Medical Branch TROPONIN I 2021-09-09 21:49:00 [facility] COMP. METABOLIC PANEL 2021-09-09 21:49:00 Iain Dumont [facility] ([id number]) Medical Branch LITHIUM 2021-09-09 21:49:00 [facility] CBC WITH DIFF 2021-09-09 21:49:00 [facility] CONSENT/REFUSAL FOR 2021-09-09 19:51:22 Doctor Unassigned, No Un [facility] DIAGNOSIS AND TREATMENT Name Medical Branch URINALYSIS 2020-09-30 13:27:00 Chuy Jackson [facility] ADC,CLC OR LCC ONLY - 2020-09-30 13:27:00 [facility] INFLUENZA A & B DIRECT Medical B ranch ANTIGEN COVID-19 (ID NOW RAPID 2020-09-30 13:27:00 Chuy Jackson [facility] TESTING) Medical Branch Encounters Start End Encounter Admission Attending Care Care Encounter Source Date/Time Date/Time Type Type Clinicians Facility Department ID 2021-09-08 Outpatient Humaira-Mbayo VFP VFP [id number] [place] 02:24:16 _A_ [id number] Family Practic e 2021-09-07 Outpatient Humaira-Mbayo VFP VFP [id number] [place] 22:13:27 _A_AH [id number] Family Practic e 2021-09-07 Outpatient Humaira-Mbayo VFP VFP [id number] [place] 13:23:42 _A_ [id number] Family Practic e 2021-09-06 Outpatient Humaira-Mbayo VFP VFP [id number] [facility] 04:23:58 _A_AH [id number] Family Practic e 2021-09-05 Outpatient Bernadine [facility] [id number] [facility] 19:22:48 _A_AH [id number] Family Practic e 2019-01-22 Inpatient E [facility] MED [id number] [facility] [address] 04:39:00 2021-09-09 2021-09-10 Emergency Sanchez [facility] [id number] Univers 22:20:00 03:02:00 Neenashital HEMPHILLCHEN [id number] i ty of WANDA 4.2.7.2.686 [facility] [id number] [address] 2021-09-09 2021-09-10 Emergency X SANCHEZ [facility] ERT [id number] Univers 22:20:00 03:02:00 NEENA tubbs [facility] 2021-09-09 2021-09-09 Emergency X HANSA [facility] ERT [id number] Univers 14:07:00 17:35:[facility] 2021-09-09 2021-09-09 Emergency Hansa [facility] [id number] Univers 14:07:00 17:35:00 Iain Hahn NICO [id number] i ty of WANDA 4.2.7.2.686 [facility] [id number] [address] 2021-09-09 2021-09-09 Orders Doctor RIZVI [id number] Univers 00:00:00 00:00:00 Only Unassigned, LANA [id number] ity of [place] [facility] 4.2.7.2.686 Joe [id number] [facility] 009 Branch 2020-09-30 2020-09-30 DENIA Oneal [id number] 07:22:00 08:18:00 Chuy Jimenez [id number] [place] 4.2.7.2.686 [place] [id number] 2020-09-30 2020-09-30 Emergency Singer [facility] [id number] Univers 07:22:00 08:18:00 Chuy Jimenez 350.1.13.10 i ty lev [place] 4.2.7.2.686 [facility] [id number] [facility] 084 Branch 2020-09-30 2020-09-30 Emergency X SINGER [facility] ERT [id number] Univers 07:22:00 07:22:00 CHUY tubbs [facility] 2020-03-04 2020-03-14 Inpatient 3 [facility] [id number] 15:38:00 15:25:00 [facility] 2019-01-22 2019-01-28 Inpatient [facility] [id number] Memoria 04:33:00 04:40:00 r Yonis 00 l [facility] 2018-02-21 2018-02-20 [facility] [id number] 14:48:00 13:18:00 [facility] Results Test Description Test Time Test Comments Results Result Comments Source TROPONIN I 2021-09-10 05:26:53 Test Item Value Reference Range Interpretation Comme nts TROPONIN I (test code = 0.003 ng/mL See_Comment [Au tomated message] The 6879022112) system which ge nerated this result tra [...] biotin. Lab Interpretation Normal (test code = 82652-6) [id number] 05:24:16 Test Item Value Reference Range Interpretation Comments NT-proBNP (test code 35 pg/mL See_Comment [Autom ated = 3244050345) message] The system which generated this result transmitted reference range : <=125. The reference range was not used to interpret this result as normal/abnormal . PERRY (test code = PERRY) Biotin has been reported to cause a negative bias, interpret results relative to patient's use of biotin. Lab Interpretation Normal (test code = 31006-5) [facility] 05:16:51 Test Item Value Reference Range Interpretation Comments MAGNESIUM (test code = 5716898623) 1.8 mg/dL 1.7-2.4 Lab Interpretation (test code = Normal 19570-1) [facility]. METABOLIC PANEL (85153)2021-09-10 05:16:31 Test Item Value Reference Range Interpretation Comments NA (test code = 139 mmol/L 135-145 2615731806) K (test code = 4.0 mmol/L 3.5-5.0 9455166359) CL (test code = 108 mmol/L 98-108 9349001934) CO2 TOTAL (test code 25 mmol/L 23-31 = 2682534119) AGAP (test code = 2-16 7680226698) BUN (test code = 14 mg/dL 7-23 8382091582) GLUCOSE (test code = 88 mg/dL 70-110 8311236520) CREATININE (test code 0.89 mg/dL 0.50-1.04 = 5849451771) TOTAL BILI (test code 0.5 mg/dL 0.1-1.1 = 2869518244) CALCIUM (test code = 10.3 mg/dL 8.6-10.6 6500709261) T PROTEIN (test code 6.9 g/dL 6.3-8.2 = 7406444246) ALBUMIN (test code = 4.3 g/dL 3.5-5.0 7289677736) ALK PHOS (test code = 72 U/L 34-122 5756058186) ALTv (test code = 17 U/L 5-35 1742-6) AST(SGOT) (test code 29 U/L 13-40 = 1654502615) eGFR (test code = mL/min/1.73m2 4866331256) PERRY (test code = PERRY) Association of [...] or urine or abnormalities in imaging tests). [facility] [id number] 05:16:16 Test Item Value Reference Range Interpretation Comments CK (test code = 5718017608) 267 U/L 33-194 H Lab Interpretation (test code = Abnormal 06419-3) [facility] THRMPLAS [id number] 05:05:32 Test Item Value Reference Range Interpretation Comments APTT Patient (test See_Comment [Automat ed code = 3173-2) message] The system which generated this result transmitted reference range : 23 - 38 Seconds . The reference range was not used to interpr et this result as normal/abnormal . PERRY (test code = PERRY) The [facility] patient population mean normal value for aPTT is 30 seconds. Lab Interpretation Normal (test code = 67425-5) [facility] / [id number] 05:03:30 Test Item Value Reference Range Interpretation [...] tions. Lab Interpretation (test Normal code = 16012-7) [facility] WITH [id number] 04:57:13 Test Item Value Reference Range Interpretation Comments WBC (test code = See_Comment [Automated 7290-2) message] The sy stem which generated this result transmitted reference range : 4.30 - 11.10 10*3/?L. The reference range was not used to interpret this result as normal/abnormal . RBC (test code = See_Comment [Automated 849-8) message] The sy stem which generated this [...] RDW-SD (test code = 41.2 fL 39.0-49.9 03785-9) RDW-CV (test code = 13.0 % 12.0-15.5 788-0) PLT (test code = See_Comment H [Automated 157-3) message] The sy stem which generated this result transmitted reference range : 166 - 358 10*3/ ?L. The reference r katie was not used to interpret this result as normal/abnormal . MPV (test code = 9.6 fL 9.5-12.9 63098-5) NRBC/100 WBC (test See_Comment [Automat ed code = 7289662674) message] The system which generated this result transmitted reference range : 0.0 - 10.0 /100 WBCs. The refer ence range was not u sed to interpret th is result as normal/abnormal . NRBC x10^3 (test code <0.01 See_Comment [Auto mated = 0810673060) message] The s ystem which generated this result transmitted reference range : 10*3/?L. The reference range was not used to interpret this result as normal/abnormal . GRAN MAT (NEUT) % 61.9 % (test code = 770-8) IMM GRAN % (test code 0.30 % = 8228271180) LYMPH % (test code = 26.0 % 736-9) MONO % (test code = 9.5 % 5905-5) EOS % (test code = 1.6 % 713-8) BASO % (test code = 0.7 % 706-2) GRAN MAT x10^3(ANC) 5.91 10*3/uL 1.88-7.09 (test code = 9878699752) IMM GRAN x10^3 (test 0.03 10*3/uL 0.00-0.06 code = 5824901618) LYMPH x10^3 (test code 2.48 10*3/uL 1.32-3.29 = 731-0) MONO x10^3 (test code 0.91 10*3/uL 0.33-0.92 = 742-7) EOS x10^3 (test code = 0.15 10*3/uL 0.03-0.39 711-2) BASO x10^3 (test code 0.07 10*3/uL 0.01-0.07 = 704-7) Lab Interpretation Abnormal (test code = 87436-8) [facility] [facility]JESS[facility] [id number] 22:24:55 Test Item Value Reference Interpretation Comments Range TROPONIN I (test 0.002 ng/mL See_Comment [Automated code = 9134079730) message] The system which generated this result [...] biotin. Lab Interpretation Normal (test code = 39090-9) [facility] 22:24:34 Test Item Value Reference Range Interpretation Comments [place] (test code = <0.2 0.6-1.2 L 3122742383) PERRY (test code = PERRY) Toxic Range: ? Greater than 1.2 mmol/L Lab Interpretation (test Abnormal code = 11004-3) [facility]COMP. METABOLIC PANEL (45622)2021-09-09 22:13:54 Test Item Value Reference Range Interpretation Comments NA (test code = 139 mmol/L 135-145 9145012377) K (test code = 4.0 mmol/L 3.5-5.0 4279013282) CL (test code = 105 mmol/L 98-108 3168752371) CO2 TOTAL (test code 26 mmol/L 23-31 = 8576363521) AGAP (test code = 2-16 3007261152) BUN (test code = 11 mg/dL 7-23 6532106558) GLUCOSE (test code = 109 mg/dL 70-110 0112568909) CREATININE (test code 0.71 mg/dL 0.50-1.04 = 0196925925) TOTAL BILI (test code 0.6 mg/dL 0.1-1.1 = 0036025958) CALCIUM (test code = 10.4 mg/dL 8.6-10.6 6211392811) T PROTEIN (test code 7.6 g/dL 6.3-8.2 = 5717362600) ALBUMIN (test code = 4.7 g/dL 3.5-5.0 0003625290) ALK PHOS (test code = 78 U/L 34-122 3058559197) ALTv (test code = 19 U/L 5-35 2-6) AST(SGOT) (test code 28 U/L 13-40 = 5637564157) eGFR (test code = mL/min/1.73m2 1301973452) PERRY (test code = PERRY) Association of [...] or urine or abnormalities in imaging tests). [facility] WITH [id number] 22:03:32 Test Item Value Reference Range Interpretation [...] RDW-SD (test code = 40.2 fL 39.0-49.9 11635-4) RDW-CV (test code = 12.9 % 12.0-15.5 788-0) PLT (test code = See_Comment H [Automated 777-3) message] The sy stem which generated this result transmitted reference range : 166 - 358 10*3/ ?L. The reference r katie was not used to interpret this result as normal/abnormal . MPV (test code = 9.4 fL 9.5-12.9 L 07072-5) NRBC/100 WBC (test See_Comment [Automat ed code = 9699737038) message] The system which generated this result transmitted reference range : 0.0 - 10.0 /100 WBCs. The refer ence range was not u sed to interpret th is result as normal/abnormal . NRBC x10^3 (test code <0.01 See_Comment [Auto mated = 7729939176) message] The s ystem which generated this result transmitted reference range : 10*3/?L. The reference range was not used to interpret this result as normal/abnormal . GRAN MAT (NEUT) % 67.1 % (test code = 770-8) IMM GRAN % (test code 1.00 % = 4296109187) LYMPH % (test code = 21.4 % 736-9) MONO % (test code = 7.9 % 5905-5) EOS % (test code = 1.8 % 713-8) BASO % (test code = 0.8 % 706-2) GRAN MAT x10^3(ANC) 7.35 10*3/uL 1.88-7.09 H (test code = 4006009553) IMM GRAN x10^3 (test 0.11 10*3/uL 0.00-0.06 H code = 1130029946) LYMPH x10^3 (test code 2.34 10*3/uL 1.32-3.29 = 731-0) MONO x10^3 (test code 0.86 10*3/uL 0.33-0.92 = 742-7) EOS x10^3 (test code = 0.20 10*3/uL 0.03-0.39 711-2) BASO x10^3 (test code 0.09 10*3/uL 0.01-0.07 H = 704-7) Lab Interpretation Abnormal (test code = 87703-2) [facility],CLC OR L[facility] ONLY - INFLUENZA A & B DIRECT [id number] 14:04:00 Test Item Value Reference Range Interpretation Comments Influenza A (test code = 52066-1) Negative Negative Influenza B (test code = 67408-4) Negative Negative Lab Interpretation (test code = Normal 87161-0) [facility]COVID-19 (ID NOW RAPID TESTING)2020-09-30 14:03:00 Test Item Value Reference Range Interpretation Comments SARS-CoV-2 Rapid ID NOW Not Detected Not Detected (test code = 16458-2) PERRY (test code = PERRY) ID NOW COVID-19 Assay is an isothermal nucleic acid amplification test intended for the qualitative detection of nucleic acid from SARS-CoV-2 viral RNA in nasopharyngeal (MATERIAL HANDLER 2ND SHIFT) specimens. It is used under Emergency Use [...] indicated. Lab Interpretation Normal (test code = 77706-2) [facility]URINALYSIS2020-12-07 13:55:00 Test Item Value Reference Range Interpretation Comments APPEARANCE (test code = Hazy Clear A 3072880735) COLOR (test code = Yellow Yellow 6940098615) PH (test code = 4.8-8.0 2542778172) SP GRAVITY (test code = 1.003-1.030 5233955626) GLU U QUAL (test code = Normal Normal 1519539274) BLOOD (test code = Negative Negative 4968015267) KETONES (test code = 5 mg/dL Negative A 7823094171) PROTEIN (test code = Negative Negative 2887-8) UROBILIN (test code = 2.0 mg/dL Normal A 5434270869) BILIRUBIN (test code = Negative Negative 0238298379) NITRITE (test code = Negative Negative 8067952466) LEUK ROZINA (test code = 25/uL Negative A 3966825086) RBC/HPF (test code = See_Comment [Autom ated message] 4107505123) The system Thotz generated this result transmit ngozi reference range : 0 - 3 HPF. The refe rence range was not u sed to interpret th is result as normal/abnormal . WBC/HPF (test code = See_Comment [Autom ated message] 6081711362) The system Thotz generated this result transmit ngozi reference range : 0 - 5 HPF. The refe rence range was not u sed to interpret th is result as normal/abnormal . BACTERIA (test code = Few Negative A 4911624075) MUCOUS (test code = Slight Negative LPF A 3279403414) SQ EPITH (test code = HPF 6321036295) Lab Interpretation (test Abnormal code = 15438-4) [facility] NorthwestRPR Qhlglunazew5759-43-85 16:42:24 Test Item Value Reference Range Interpretation [...] = 10-24-2020 N Expiration Dt) Thyroid Stimulating Fcznnrq7535-16-81 08:35:16 Test Item Value Reference Range Interpretation Comments TSH (test code = TSH) 1.170 mIU/mL 0.270-4.200 Lipid Potec8853-21-79 08:21:19 Test Item Value Reference Range Interpretation Comments Cholesterol Total 254 mg/dL 0-200 H RISK OF HE ART (test code = DISEASEPublishe d by Cholesterol Total) [place] Cathie lyte Optimal Borderl ine [...] calculation is LDL/HDL Ratio=L DL Calc/HDL Chol CNYSFGYHPAZS8106-99-91 08:24:008.6[facility] KgjvmmgKFLYLVVAIRBW4120-23-20 08:24:62488Snhhckkr XvsyefvUNAJNONVHYEK8300-10-79 08:24:0027[facility] XZJIPOZQPYMR8076-50-07 08:24:64192Qqbxjxpf RnpddhmHUOJLSHWEUEX6964-80-54 08:24:003.6[facility] XqkiomvVTKQVTBSRVLN0000-24-58 08:24:000.70[facility] RGXCCWZZTLMM4008-82-93 08:24:008.4[facility] YpygyufVHMRSKWFMUJI7185-91-05 08:24:07148Pfunwisw DhvajsuBMCOZKCSZVPT2499-55-74 08:24:0086[facility] HXPSSMCCEXRY3841-50-02 08:24:006[facility] ZymgndlMQJGYYYGFL8552-98-41 08:24:00 11.6[facility] WwzclqlPACCOOGNIF4516-30-44 08:24:003.78[facility]annHEMATOLOGY 2019-01-26 08:24:0013.3[facility] YwggcbhNXNIOTSFXR8085-25-93 08:24:0034.0[facility] YrumjijXIVUHWSKSQ9376-57-41 08:24:006.3[facility] UhypfooABPMUTJZVH7579-94-11 08:24:00 Test Item Value Reference Range Interpretation Comments MCH (test code = MCH) 30.7 pg 27.0-31.0 [facility] CerhkyvFVXYYCFMHS6593-47-71 08:24:0090.3[facility] HermannHEMATOLOGY 2019-01-26 08:24:0034.2[facility] GamlomfMGXWUNPAPS2944-41-43 08:24:96821Idpjnnpt IjsgwaoKMBDLAXUEK2373-87-04 08:24:007.5[facility] YiiufqfTIJZWVDUDUEP7927-20-47 08:24:008.6[facility] TpferjuUKLXXWKDCUSF5160-29-37 08:24:68864Ekdkwsyo [place] ZYZTBSORUDFC0691-71-27 08:24:0027[facility] OcvxuleAEPECCFPYVHE2326-53-33 08:24:00 139[facility] EyoaxckYKUQBTTJPXCL6258-72-56 08:24:003.6[facility] IYDKRQLCJWAV0574-03-19 08:24:000.70[facility] RhycwhpVAZETFRAACPG5954-26-23 08:24:008.4[facility] OdbfdwlLWMQQUJYTZWP7719-35-00 08:24:58272Rjvcrgkq Yonis ZYYPSGTACNKH1212-87-10 08:24:0086[facility] DdeoinjKMROZGFMISJE4897-53-69 08:24:00 6[facility] UmosprkSZVVOPJPPK6869-13-62 08:24:0011.6[facility] HermannHEMATOLOGY 2019-01-26 08:24:003.78[facility] VlwgccoISHSDFYYBJ7549-89-42 08:24:0013.3[facility] XvnxkwdSHIAWBEAWC0991-20-69 08:24:0034.0[facility] SqsuinnJAPMQJBMGR3942-66-34 08:24:006.3[facility] LxenrgcMCYSXYYRVS0722-24-46 08:24:00 Test Item Value Reference Range Interpretation Comments MCH (test code = MCH) 30.7 pg 27.0-31.0 [facility] WjzpkexVAMQSOPIFX8617-04-97 08:24:0090.3[facility] HermannHEMATOLOGY 2019-01-26 08:24:0034.2[facility] UqlkdmxRHGHZPJDCN7919-69-94 08:24:30978Ferpmfad AqetknfJCSZGSHSSD4625-95-15 08:24:007.5[facility] HermannCHEM KIZGZ8794-53-52 09:14:90038Oejqkuqm HermannCHEM KGZCS8895-55-46 09:14:008.5[facility] HermannCHEM GETLY3870-82-34 09:14:0013.3[facility]annCHEM YMDVU8876-66-47 09:14:0024 [facility]annCHEM OVQUW6653-17-73 09:14:75243Bgagawan HermannCHEM PANEL 2019-01-25 09:14:0081[facility] HermannCHEM OIJBW5414-15-61 09:14:002[facility]annCHEM KQSOF0498-60-15 09:14:003.3[facility]annCHEM SKGYS6822-38-46 09:14:000.60[facility]annCHE[facility] KRXMA9790-52-81 09:14:66408Upbjdbrk HermannCHEM PNMZC6576-69-82 09:14:39182Rrqrnkwc HermannCHEM SZLYI8404-94-18 09:14:008.5 [facility]annCHE[facility] SZBEA6378-41-70 09:14:0013.3[facility] HermannCHEM PANEL 2019-01-25 09:14:0024[facility] HermannCHEM NHYHV4071-90-02 09:14:09978Aptgxusc HermannCHEM LROMW0529-21-68 09:14:0081[facility]annCHEM VDTSX9402-41-23 09:14:002[facility]annCHEM CLQWF3710-36-99 09:14:003.3[facility]annCHEM OEIYM1024-79-25 09:14:000.60[facility]annCHEM YOJLI5139-57-07 09:14:23931 [facility]annMOLECULAR FCLFANIOJU9701-22-66 16:22:00Negative (01/23/19 11:22 AM)[facility] HermannMOLECULAR BVDZJEUXEC9555-34-76 16:22:00Negative (01/23/19 11:22 AM)[facility]annCHEM WUBGA2543-43-18 15:42:002.76[facility]annCHEM PANEL 2019-01-23 15:42:002.76[facility]annCHEM XPDLZ7327-38-93 12:32:000.9[facility]annCHEM OAYTS3401-44-73 12:32:000.9[facility]annCHEM NWKVL5653-94-77 10:50:002.0[facility]annCHEM WSMQL5671-24-66 10:50:24120Vrwmgmao HermannCHEM DLUBX6598-04-31 10:50:0023[facility]annCHEM XRFKV3420-26-85 10:50:86802 [facility]annCHEM WEYIE8307-54-75 10:50:003.1[facility] HermannCHEM PANEL 2019-01-23 10:50:41854Ksitsldq HermannCHEM KSOHQ3662-78-15 10:50:005[facility]annCHEM JVCUY1520-16-97 10:50:000.50[facility]annCHEM RBAYH8852-56-60 10:50:007.8[facility]annCHEM MVHFH2749-13-68 10:50:0083[facility]annCHEM RZWLS9167-27-38 10:50:0010.1[facility] DoztwxvUMUKJELAUT5296-00-39 10:50:000.2 [facility] GzmzxurHGKWBKDWOK3153-10-99 10:50:000.8[facility] HermannHEMATOLOGY 2019-01-23 10:50:005.5[facility] GmxvijiOXAZXRTFEU8195-42-70 10:50:002.2[facility] YfkgglxYIGEQQAEDC8537-19-94 10:50:000.1[facility] HoymhgaNTEVPKFEOW1332-50-14 10:50:0063.6[facility] GhpccejZCYHNIOIZI6682-59-71 10:50:008.9[facility] HIXLBZSICP2111-42-60 10:50:002.3[facility] TzpkfdzOZDKZQITQM4634-97-92 10:50:00 Normal (01/23/19 5:50 AM)[facility] TbbblwgCEBJWJVYFM3981-02-25 10:50:00Normal (01/23/19 5:50 AM)[facility] DqrdlzoEYJZOXVIBN5416-92-36 10:50:0025.1[facility] QbbifdeAFQQXJMHVB4712-57-41 10:50:0013.1[facility] LnecejxSIBIOMITZT1995-21-05 10:50:52127Rkwtufhl RoqaswaNOWSDUHZCH0817-06-21 10:50:007.7[facility] [place] [facility] DSKWNKLZXT9285-22-56 10:50:008.6[facility] TdjvsvhSQDEXPUCCG3034-86-07 10:50:00 10.0[facility] FhxqluoVDFHDOOHJK7068-88-24 10:50:0034.6[facility] HermannHEMATOLOGY 2019-01-23 10:50:0028.7[facility] VdsxqenFOGROACDQJ2998-67-01 10:50:0087.8[facility] ZbaluseWOSLKXCDZT5805-73-47 10:50:00 Test Item Value Reference Range Interpretation Comments MCH (test code = MCH) 30.4 pg 27.0-31.0 [facility] NukwsghNPSCJVDTBG9506-25-74 10:50:003.27[facility] HermannHEMATOLOGY 2019-01-23 10:50:32903Ozgrybza EbeefxrKLCCHWZOZB7925-76-26 10:50:007.7[facility] KsbgktvEGUGHAAGFX7256-69-80 10:50:008.6[facility] ZkffckwVQSXEYYNYO4185-27-71 10:50:0010.0[facility] IysjvrnLPAUWLRNZY3211-45-53 10:50:0034.6[facility] ZAOFSJICVF0282-41-13 10:50:0028.7[facility] LibdjwwJHCLQVCRWD1920-00-88 10:50:00 87.8[facility] VuqamesLYDDZAFCZF6866-79-52 10:50:00 Test Item Value Reference Range Interpretation Comments MCH (test code = MCH) 30.4 pg 27.0-31.0 [facility] SheroojWCNJPVCEOB7365-39-07 10:50:003.27[facility] HermannCHEM PANEL 2019-01-23 10:50:002.0[facility] HermannCHEM VBRGH7369-57-84 10:50:78653Xioxnjub HermannCHEM WBOAO2624-14-28 10:50:0023[facility]annCHEM RBGCZ0456-26-70 10:50:83596Szdcbacr [facility]annCHEM DRHJT5286-18-81 10:50:003.1[facility]annCHEM ETQOV0815-93-27 10:50:30432Svetsbex HermannCHEM ICRJI2575-86-93 10:50:005 [facility]annCHE[facility] XKTLO3708-64-92 10:50:000.50[facility] HermannCHEM PANEL 2019-01-23 10:50:007.8[facility]annCHEM QEMWY1088-97-68 10:50:0083[facility]annCHEM LPOIF1088-42-04 10:50:0010.1[facility] MnwdlefTMXVIVOMVN2722-66-36 10:50:000.2[facility] FvituvdATWURDTJYO4142-68-94 10:50:000.8[facility] ZYXZIQFSQZ0724-40-86 10:50:005.5[facility] BpqniwqWFCJGLJWSM6093-26-89 10:50:002.2 [facility] TzmkfopHDCAVQMLHE1470-13-23 10:50:000.1[facility] HermannHEMATOLOGY 2019-01-23 10:50:0063.6[facility] OeezeesKSDDNHPJYM2365-07-04 10:50:008.9[facility] AnapclbPGIQESMMVY4953-87-19 10:50:002.3[facility] DkkrpijZNDZMCNVKJ2793-82-56 10:50:00Normal (01/23/19 5:50 AM)[facility] MsmlfdeIAHXHEAYPV9943-52-10 10:50:00 Normal (01/23/19 5:50 AM)[facility] EevyzexPQNOSFAODQ4822-83-23 10:50:0025.1[facility] RaumtxwPLUOVBLBTX0825-07-82 10:50:0013.1[facility] HermannCHEM EAIZM1306-49-45 11:32:002.4[facility] HermannCHEM ZZQAD7172-94-22 11:32:002.4[facility] HermannCHEM HHAGG6412-76-96 09:04:003.0[facility]annCHEM BQQBA3921-81-35 09:04:003.0 [facility] AND VSOYG4016-66-29 07:14:00 Test Item Value Reference Range Interpretation Comments UA Spec Grav (test code = UA Spec 1.014 1 Grav) [facility] IRNXO5195-07-51 07:14:00 Test Item Value Reference Range Interpretation Comments UA pH (test code = UA pH) 6.0 1 5.0-8.0 [facility] SYYIE7960-76-88 07:14:00Negative (01/22/19 2:14 AM) [facility] LYGIY5160-95-36 07:14:00Negative *NA*(01/22/19 2:14 AM) [facility] OJMNI2556-90-52 07:14:00Negative *NA*(01/22/19 2:14 AM) [facility] NSTEZ0901-88-67 07:14:00Negative *NA*(01/22/19 2:14 AM) [facility] EIETH3401-58-73 07:14:00Negative (01/22/19 2:14 AM) [facility] IPLAI2278-26-89 07:14:00Negative (01/22/19 2:14 AM) [facility] NACCK9849-05-56 07:14:00Negative (01/22/19 2:14 AM) [facility] TNZHI9326-77-01 07:14:00<1[facility] HYUXD2978-80-27 07:14:0025[facility] VELZD8535-32-31 07:14:002 [facility] ZMVZG7393-96-41 07:14:00Light Yellow *NA*(01/22/19 2:14 AM)[facility] IRHKH8982-56-14 07:14:00Clear (01/22/19 2:14 AM) [facility] QIBLD5977-14-92 07:14:00 Test Item Value Reference Range Interpretation Comments UA Spec Grav (test code = UA Spec 1.014 1 Grav) [facility] JFXDP7233-66-06 07:14:00 Test Item Value Reference Range Interpretation Comments UA pH (test code = UA pH) 6.0 1 5.0-8.0 [facility] LDXQA1116-93-36 07:14:00Negative (01/22/19 2:14 AM) [facility] SPEOT6765-07-09 07:14:00Negative *NA*(01/22/19 2:14 AM) [facility] MJUCD0411-14-47 07:14:00Negative *NA*(01/22/19 2:14 AM) [facility] ZWCUJ6575-47-02 07:14:00Negative *NA*(01/22/19 2:14 AM) [facility] YVFGJ1078-35-43 07:14:00Negative (01/22/19 2:14 AM) [facility] PMLSM7558-66-40 07:14:00Negative (01/22/19 2:14 AM) [facility] WPVJB7296-53-17 07:14:00Negative (01/22/19 2:14 AM) [facility] JKHUB8172-66-15 07:14:00<1[facility] MCYKQ8242-10-36 07:14:0025[facility] XXWJO1446-67-59 07:14:002 [facility] XVEMK8614-98-69 07:14:00Light Yellow *NA*(01/22/19 2:14 AM)[facility] QRCIT6302-41-34 07:14:00Clear (01/22/19 2:14 AM) [facility] XuqcockDHLHH7674-32-98 05:16:000.90[facility] FuucuoiZSDNQ3783-73-98 05:16:000.90[facility] TqogehvSNCIMWVHPC5479-78-33 05:01:005.7[facility] ISPRAQDWAH4524-54-48 05:01:006.9[facility] KqtzcqoQEZOPYGUOB6851-13-87 05:01:009.9 [facility] ZqyzcoxXQBAKSKGPV9771-72-64 05:01:0032.8[facility] HermannHEMATOLOGY 2019-01-22 05:01:0013.6[facility] AifvircZMGDLCTBCA1533-40-11 05:01:11483Najfaejt WwskvfeKFBWWZSKAE2442-77-92 05:01:007.3[facility] KynowvxREIVGILZWN4436-39-00 05:01:0014.0[facility] MnmdcfhEAENXWOVMM2386-50-60 05:01:004.85[facility] RMEAYDJLMV9676-47-52 05:01:0042.7[facility] MxmqnqtXEDXEMKBQB0167-58-97 05:01:00 Test Item Value Reference Range Interpretation Comments MCH (test code = MCH) 29.0 pg 27.0-31.0 [facility] OriymbuCGJVOJYSPH9187-10-08 05:01:0088.2[facility] HermannHEMATOLOGY 2019-01-22 05:01:00 Test Item Value Reference Range Interpretation Comments INR (test code = INR) 0.96 1 0.85-1.17 [facility] ZyvamqiIPUKEMMYLY3993-69-88 05:01:00 Test Item Value Reference Range Interpretation Comments PT (test code = PT) 12.6 s 12.0-14.7 [facility] TvzuionNNPSDHNRDC0003-80-18 05:01:00 Test Item Value Reference Range Interpretation Comments PTT (test code = PTT) 25.9 s 22.9-35.8 [facility] SFVIRFZ4709-50-75 05:01:00Negative (01/22/19 12:01 AM) [facility] AWEGEJS6496-53-21 05:01:00<0.02[facility] CARDIAC IWLHLET4485-18-87 05:01:0049[facility] HermannCHEM BUNHX5402-58-48 05:01:000.6[facility] HermannCHEM FJHRC0617-36-56 05:01:61332Ejdkjbma HermannCHEM SESXG5293-67-89 05:01:004.0[facility] HermannCHEM NGQWS6050-77-83 05:01:0017 [facility]annCHE[facility] OCXBS2166-57-83 05:01:0025[facility]annCHEM PANEL 2019-01-22 05:01:008.1[facility] HermannCHEM BZRBA0555-64-35 05:01:00 Test Item Value Reference Range Interpretation Comments B/C Ratio (test code = B/C Ratio) 20 1 6-25 [facility]annCHEM MJMZS4967-10-22 05:01:00 Test Item Value Reference Range Interpretation Comments A/G Ratio (test code = A/G Ratio) 1.0 1 0.7-1.6 [facility]annCHEM TEYRF0500-33-71 05:01:004.1[facility] HermannCHEM PANEL 2019-01-22 05:01:006.90[facility] MtgoerpQZCPGBRGCBEIN5240-62-89 05:01:00Negative *NA*(01/22/19 12:01 AM)[facility] SmjiaplOEIPHSUEDG6902-02-75 05:01:000.1[facility] JefdyfbQTHUHFXEQF6964-47-18 05:01:000.7[facility] IrfqbboCCGCHYPTHN0590-48-98 05:01:000.0[facility] GocuiswWCCLWPOIWR0936-91-83 05:01:000.0[facility] FVJULLKRKL9497-32-85 05:01:000.9[facility] UdruawtJVUZLAXMGS9879-69-01 05:01:008.6 [facility] DfbyxjhKDPQYKUDZS4498-78-18 05:01:000.6[facility]annHEMATOLOGY 2019-01-22 05:01:0086.5[facility] JlbassaPSJCUGJGYN1927-97-03 05:01:005.7[facility] CorgxchAABUTFEVNC0859-84-31 05:01:006.9[facility] YxnwuzsJPNRZDZDLE7837-22-15 05:01:009.9[facility] RtiyrymBLCDGGIVZL4862-97-49 05:01:0032.8[facility] UYTLEWMUKO6737-40-32 05:01:0013.6[facility] JmpqccxBCJJDESGKK6442-85-96 05:01:00 443[facility] KgaaaqjZLJRMNRUWH4276-20-06 05:01:007.3[facility]annHEMATOLOGY 2019-01-22 05:01:0014.0[facility] PcgqasgSVWFBVECEY3822-83-50 05:01:004.85[facility] CuhctogZEYMYFSACF3472-94-19 05:01:0042.7[facility] BzctsbwUCBUFQDGSF2927-47-57 05:01:00 Test Item Value Reference Range Interpretation Comments MCH (test code = MCH) 29.0 pg 27.0-31.0 [facility] TpfyuyyIEHXDRBVUK5435-31-21 05:01:0088.2[facility] HermannHEMATOLOGY 2019-01-22 05:01:00 Test Item Value Reference Range Interpretation Comments INR (test code = INR) 0.96 1 0.85-1.17 [facility] MofprpwZCCFDYRBPY6319-66-36 05:01:00 Test Item Value Reference Range Interpretation Comments PT (test code = PT) 12.6 s 12.0-14.7 [facility] OgzdmbmGGRSXOOOGS4580-50-14 05:01:00 Test Item Value Reference Range Interpretation Comments PTT (test code = PTT) 25.9 s 22.9-35.8 [facility] BUBXPIZ9787-15-91 05:01:00Negative (01/22/19 12:01 AM) [facility] HermannCARDIAC ELGPXFN8924-17-28 05:01:00<0.02[facility] CARDIAC YTHSELI7419-31-83 05:01:0049[facility] HermannCHEM TDCPJ3090-93-12 05:01:000.6[facility] HermannCHEM WNAPX3271-31-79 05:01:10416Iclkojxz HermannCHEM SKRAB1779-59-81 05:01:004.0[facility]annCHE[facility] SRFCA5543-97-00 05:01:0017 [facility] [id number] 05:01:0025[facility]annCHE[facility] PANEL 2019-01-22 05:01:008.1[facility] [id number] 05:01:00 Test Item Value Reference Range Interpretation Comments B/C Ratio (test code = B/C Ratio) 20 1 6-25 [facility] HermannCHEM [id number] 05:01:00 Test Item Value Reference Range Interpretation Comments A/G Ratio (test code = A/G Ratio) 1.0 1 0.7-1.6 [facility]annCHEM [id number] 05:01:004.1[facility]annCHEM PANEL 2019-01-22 05:01:006.90[facility] OvcfzipLCHRKBBSGKXNJ2902-56-75 05:01:00Negative *NA*(01/22/19 12:01 AM)[facility] EkznjyfILGCXJYCDU0549-71-68 05:01:000.1[facility] IkxqogiXHRZVOFUKG9994-33-00 05:01:000.7[facility] OnzszveCOKJSZXXMD7866-43-97 05:01:000.0[facility] FnijqmfXCMPYOWRRR3270-61-39 05:01:000.0[facility] SCUKEIWUXT7454-64-72 05:01:000.9[facility] DcrovtrECKWDIGNWS3180-33-63 05:01:008.6 [facility] UlechglSKQRLJFAUK7003-79-89 05:01:000.6[facility]annHEMATOLOGY 2019-01-22 05:01:0086.5[facility] WzfzcyjWYZ7P6580-00-27 14:36:00 Test Item Value Reference Range Interpretation [...] 0.00-0.01 N code = ETOHU) Comprehensive Metabolic [id number] 14:36:00 Test Item Value Reference Range Interpretation [...] the [employer],http :[email or web address] ep.nih.gov Urinalysis Ukgmnakj1832-07-10 14:32:00 Test Item Value Reference Range Interpretation Comments Color (test code = COLOR) Yellow Yellow,Straw,Pl N yellow Clarity (test code = Clear Clear N CLAR) Specific [place] (test 1.024 1.001-1.035 N code = SPGR) [...] code = Few /HPF BACT) CBC with Uaytoefosziw2668-10-94 14:21:00 Test Item Value Reference Range Interpretation [...] code = ALYMPH) 3.0 K/cumm 0.5-4.6 N [place] Abs (test code = AMONO) 0.5 K/cumm 0.0-1.2 N Eos Abs (test code = AEOS) 0.19 K/cumm 0.00-0.74 N Baso Abs (test code = ABASO) 0.1 K/cumm 0.00-0.21 N
[2021-09-12] MEDS ORDERED: ONDANSETRON 4 MG (ODT) TAB ONE (15:27)
--- NOTE | 2021-09-12 15:46 | EDPHYS ---
Physician Documentation [facility] Name: Tiffany Quinn Age: 51 yrs Sex: Female : 1970 Arrival Date: 09/12/2021 Time: 13:27 Bed 10 Private MD: ED Physician Demarcus Mancilla HPI: 09/12 15:08 This 51 yrs old Female presents to ER via EMS with complaints of Nausea and Anxiety. cp 15:08 The patient presents to the emergency department with nausea, that is mild. cp 15:08 Onset: The symptoms/episode began/occurred today. cp 15:08 Possible causes: admits to use of methamphetamine last night and earlier today. cp Associated signs and symptoms: Pertinent negatives: abdominal pain, constipation, fever, vomiting, chest pain. APPRAISER PERSONAL PROPERTY: 13:44 LMP N/A - Post-menopause iw Historical: - Allergies: 13:43 Haldol; iw 13:43 Pepcid; iw 13:43 Toradol; iw - Home Meds: 13:43 lithium carbonate 300 mg Oral tab 1 cap 3 times per day [Active]; Seroquel Oral iw [Active]; Atarax Oral [Active]; - PMHx: 13:43 Anxiety; Bipolar disorder; iw - PSHx: 13:43 breast augmentation; Cholecystectomy; hernia repair; iw - Immunization history:: Client reports having NOT received the Covid vaccine. - Social history:: Smoking status: Patient uses street drugs, Methamphetamine (Meth). ROS: 15:10 Constitutional: Negative for body aches, chills, fever, poor PO intake. cp 15:10 Eyes: Negative for injury, pain, redness, and discharge. cp 15:10 ENT: Negative for ear pain, sore throat, difficulty swallowing, difficulty handling secretions. 15:10 Cardiovascular: Negative for chest pain, edema, palpitations. 15:10 Respiratory: Negative for cough, shortness of breath, wheezing. 15:10 Abdomen/GI: Positive for nausea, Negative for abdominal pain, diarrhea, constipation. 15:10 Neuro: Negative for dizziness, headache, weakness. 15:10 Psych: Negative for auditory hallucinations, visual hallucinations, suicide gesture, suicidal ideation. 15:10 All other systems are negative. Exam: 15:15 Constitutional: The patient appears in no acute distress, alert, awake, non-toxic, well cp developed, well nourished. 15:15 Head/Face: Normocephalic, atraumatic. cp 15:15 Eyes: Periorbital structures: appear normal, Conjunctiva: normal, no exudate, no injection, Sclera: no appreciated abnormality, Lids and lashes: appear normal, bilaterally. 15:15 ENT: External ear(s): are unremarkable, Nose: is normal, Mouth: Lips: moist, Oral mucosa: moist, Posterior pharynx: Airway: no evidence of obstruction, patent. 15:15 Chest/axilla: Inspection: normal. 15:15 Cardiovascular: Rate: tachycardic, Rhythm: regular. 15:15 Respiratory: the patient does not display signs of respiratory distress, Respirations: normal, no use of accessory muscles, no retractions, labored breathing, is not present, Breath sounds: are clear throughout, no decreased breath sounds. 15:15 Abdomen/GI: Exam negative for discomfort, distension, guarding, Inspection: abdomen appears normal. 15:15 Neuro: Orientation: to person, place \T\ time. Mentation: able to follow commands, Motor: moves all fours, strength is normal, Sensation: is normal. Vital Signs: 13:40 BP 154 / 99; Pulse 111; Resp 20; Temp 99.1; Pulse Ox 97% on R/A; iw 13:44 Weight 84.82 kg; Height 5 ft. 1 in. (154.94 cm); iw 13:44 Body Mass Index 35.33 (84.82 kg, 154.94 cm) iw MDM: 15:04 Patient medically screened. cp 15:45 Differential diagnosis: overdose, electrolyte abnormality, cardiac arrythmia. cp 15:45 Data reviewed: vital signs, nurses notes, and as a result, I will discharge patient. cp Counseling: I had a detailed discussion with the patient and/or guardian regarding: the historical points, exam findings, and any diagnostic results supporting the discharge/admit diagnosis, to return to the emergency department if symptoms worsen or persist or if there are any questions or concerns that arise at home. Response to treatment: the patient's symptoms have markedly improved after treatment, nausea improved and patient observed tolerating po fluids. Will discharge to home for continued monitoring. Administered Medications: 15:28 CANCELLED (Physician Discretion): Zofran (Ondansetron) 4 mg IVP once; over 2 minutes ap3 15:30 Drug: Ondansetron 4 mg Route: PO; ap3 15:56 Follow up: Response: No adverse reaction; Nausea is decreased ap3 Disposition: 17:58 Co-signature as Attending Physician, Demarcus Mancilla MD I agree with the assessment and kdr plan of care. Disposition Summary: 09/12/21 15:46 Discharge Ordered Location: Home cp Problem: an ongoing problem cp Symptoms: have improved cp Condition: Stable cp Diagnosis - Adverse effect of amphetamines cp - Nausea cp Followup: cp - With: Private Physician - When: 1 - 2 days - Reason: Recheck today's complaints Discharge Instructions: - Discharge Summary Sheet cp - Nausea, Adult cp - Methamphetamines Use Disorder cp Forms: - Medication Reconciliation Form cp - Thank You Letter cp - Antibiotic Education cp - Prescription Opioid Use cp Prescriptions: - Zofran 4 mg Oral Tablet - take 1 tablet by ORAL route every 12 hours As needed; 20 tablet; Refills: 0, cp Product Selection Permitted Signatures: Demarcus Mancilla MD MD kdr Chante Warner, RN RN iw Bill Hay PA PA cp Shawna Lim RN RN ap3 Corrections: (The following items were deleted from the chart) 15:08 15:08 This 51 yrs old Female presents to ER via EMS with complaints of Anxiety. cp cp 15:28 15:08 Zofran (Ondansetron) 4 mg IVP once; over 2 minutes ordered. cp ap3
--- NOTE | 2021-09-12 15:46 | ER ---
Nurse's Notes [facility] Name: Tiffany Quinn Age: 51 yrs Sex: Female : 1970 Arrival Date: 09/12/2021 Time: 13:27 Bed 10 Private MD: Diagnosis: Adverse effect of amphetamines;Nausea Presentation: 09/12 13:40 Chief complaint: Patient states: started feeling like she was dying last night and took iw meth, this is one of the worst times, right now has nausea. Coronavirus screen: At this time, the client does not indicate any symptoms associated with coronavirus-19. Ebola Screen: Patient negative for fever greater than or equal to 101.5 degrees Fahrenheit, and additional compatible Ebola Virus Disease symptoms Patient denies exposure to infectious person. Patient denies travel to an Ebola-affected area in the 21 days before illness onset. No symptoms or risks identified at this time. Initial Sepsis Screen: Does the patient meet any 2 criteria? No. Patient's initial sepsis screen is negative. Does the patient have a suspected source of infection? No. Patient's initial sepsis screen is negative. Risk Assessment: Do you want to hurt yourself or someone else? Patient reports no desire to harm self or others. Onset of symptoms was September 12, 2021. 13:40 Method Of Arrival: EMS: [facility] iw 13:40 Acuity: MANUEL 4 iw SALES MGR: 13:44 LMP N/A - Post-menopause iw Historical: - Allergies: 13:43 Haldol; iw 13:43 Pepcid; iw 13:43 Toradol; iw - Home Meds: 13:43 lithium carbonate 300 mg Oral tab 1 cap 3 times per day [Active]; Seroquel Oral iw [Active]; Atarax Oral [Active]; - PMHx: 13:43 Anxiety; Bipolar disorder; iw - PSHx: 13:43 breast augmentation; Cholecystectomy; hernia repair; iw - Immunization history:: Client reports having NOT received the Covid vaccine. - Social history:: Smoking status: Patient uses street drugs, Methamphetamine (Meth). Screenin:52 Abuse screen: Denies threats or abuse. Denies injuries from another. Nutritional aj1 screening: No deficits noted. Tuberculosis screening: No symptoms or risk factors identified. Fall Risk None identified. Assessment: 15:52 General: Appears in no apparent distress. Behavior is cooperative, anxious. Pain: aj1 Denies pain. Neuro: Level of Consciousness is awake, alert, obeys commands, Oriented to person, place, time, situation. Cardiovascular: Patient's skin is warm and dry. Respiratory: Airway is patent Respiratory effort is even, unlabored, Respiratory pattern is regular, symmetrical. GI: No signs and/or symptoms were reported involving the gastrointestinal system. : No signs and/or symptoms were reported regarding the genitourinary system. EENT: No signs and/or symptoms were reported regarding the EENT system. Derm: No signs and/or symptoms reported regarding the dermatologic system. Skin is pink, warm \T\ dry. normal. Musculoskeletal: No signs and/or symptoms reported regarding the musculoskeletal system. Circulation, motion, and sensation intact. Vital Signs: 13:40 BP 154 / 99; Pulse 111; Resp 20; Temp 99.1; Pulse Ox 97% on R/A; iw 13:44 Weight 84.82 kg; Height 5 ft. 1 in. (154.94 cm); iw 13:44 Body Mass Index 35.33 (84.82 kg, 154.94 cm) iw ED Course: 13:27 Patient arrived in ED. ds1 13:43 Triage completed. iw 13:44 Arm band placed on. iw 14:47 Natasha Noonan, JIGNA is Primary Nurse. aj1 15:01 Bill Hay PA is PHCP. cp 15:01 Demarcus Mancilla MD is Attending Physician. cp 15:52 Patient has correct armband on for positive identification. Bed in low position. Call aj1 light in reach. 15:52 No provider procedures requiring assistance completed. Patient did not have IV access aj1 during this emergency room visit. Administered Medications: 15:28 CANCELLED (Physician Discretion): Zofran (Ondansetron) 4 mg IVP once; over 2 minutes ap3 15:30 Drug: Ondansetron 4 mg Route: PO; ap3 15:56 Follow up: Response: No adverse reaction; Nausea is decreased ap3 Outcome: 15:46 Discharge ordered by . cp 15:55 Discharged to home ambulatory. ap3 15:55 Condition: good 15:55 Discharge instructions given to patient, Instructed on discharge instructions, follow up and referral plans. medication usage, Demonstrated understanding of instructions, follow-up care, medications, Prescriptions given X 1. 16:08 Patient left the ED. ss Signatures: Natasha Noonan, RN RN aj1 Neelima Rivera ds1 Chante Warner RN RN Preethi Reid RN RN ss Bill Hay PA PA cp Prokisch, Amanda, RN RN ap3
[2021-09-12 16:16] VITALS: BP 154/99; TEMP 99.1; O2SAT 97
== END 2021-09-12 16:08 | disposition home or self-care (01) ==
LOC: ER 13:21
DX: R11.0 Nausea (principal); T43.625A Adverse effect of amphetamines, initial encounter; F31.9 Bipolar disorder, unspecified; Z88.5 Allergy status to narcotic agent; Z88.8 Allergy status to other drugs, medicaments and biological substances; Z98.82 Breast implant status
CPT/HCPCS: 99283

== ENCOUNTER 2021-09-13 16:35 | Emergency (ER) | payer OTHER ==
--- OUTSIDE RECORDS SUMMARY | 2021-09-13 16:42 | XMS REPORT | Continuity of Care Document ---
:[address] [facility] t Address [address] [place] [address] Care Team Providers Name Role Phone UNKNOWN Primary Care Physician Unavailable Humaira-Saraiayo_A_AH Attending Clinician Unavailable Sanchez SNOW Attending Clinician SANCHEZ Attending Clinician Unavailable Jovani Del Rosario Attending Clinician Doctor Unassigned, Name Attending Clinician Unavailable Singer ESCALANTE Attending Clinician Attending Clinician Unavailable Chente Attending Clinician Unavailable Chente Attending Clinician Unavailable ALEXYSUWKYRA Attending Clinician Unavailable Humaira-Saraiayo_A_AH Admitting Clinician Unavailable SANCHEZ Admitting Clinician Unavailable Chente Admitting Clinician Unavailable LOS Admitting Clinician Unavailable Payers Payer Name Policy Type Policy Number Effective Date Expiration Date S [facility] OF [place] - [id number] 2020 [place] 00:00:00 (MEDICARE REPLACEMENT/ADVANT AGE - HMO) Problems Condition Condition Condition Status Onset Resolution Last Treating Co mments Source Name Details Category Date Date Treatment Clinician Date LOW PB Diagnosis Active 2019-01-22 Mem oria 01-21 01:52:00 l LOW PB 00:00: Yonis 00 Active 01/21/2019 [place] INFECTIOUS Diagnosis Active 2019-02-06 Memoria GASTROENTE 01-21 08:58:00 l RITIS AND 00:00: [place] COLITIS INFECTIOUS 00 GASTROENTE RITIS AND COLITIS Active 01/21/2019 [facility] Irregular Irregular Disease Active Uni vers menstrual menstrual 8-15 ity of cycle cycle 00:00: [address] Skin Skin Disease Active Univers lesion lesion 8-15 ity of 00:00: [address] Psychiatri Psychiatri Disease Active U nivers c disorder c disorder 8-15 it y of 00:00: [address] Well woman Well woman Disease Active U nivers exam with exam with 8-15 ity of routine routine 00:00: [place] gynecologi gynecologi 00 Me dical nicky exam nicky exam Branch INFECTIOUS Diagnosis Active 2019-02-06 Memoria GASTROENTE 08:58:00 l RITIS AND Yonis COLITIS, INFECTIOUS GASTROENTE RITIS AND COLITIS, Active [facility] Allergies, Adverse Reactions, Alerts Allergy Allergy Status Severity Reaction(s) Onset Inactive Treating Comm ents Source Name Type Date Date Clinician Phenerga Phenerga Active Memori a n n l Yonis NO KNOWN Drug Active Univers ALLERGIE Class ity of S [facility] Social History Social Habit Start Date Stop Date Quantity Comments Source History of Cigarette Smoker Universi ty of tobacco use [facility] Tobacco Comment 2-3 cigs a day [facility] Exposure to Not sure [place] of SARS-CoV-2 [facility] (event) [place] Tobacco use and 2016-06-08 2016-06-08 [facility]00:00 [facility] Alcohol intake 2016-06-08 2016-06-08 0 /d University of 00:00:00 00:00:00 [facility] Sex Assigned At [birth year] Universit y of 00:00:00 00:00:00 [facility] Smoking Status Start Date Stop Date Source Social History 2019-01-22 05:00:12 [facility] Her urena Current some day smoker 2016-06-08 00:00:00 [facility] Medications Ordered Filled Start Stop Current Ordering Indication Dosage Frequency Signature Comments Components Source Medication Medication Date Date Medication? Clinician (SIG) Name Name cefTRIAXone 2020-10- No 1000mg 1,000 mg, Univers (ROCEPHIN) 17 11-17 IV ity of 1,000 mg in 08:30: 08:01 [place], [place] NaCl 0.9% 00 :00 ONCE, 1 [...] 09/09/21 at 2330, RANDA amoxicillin 2020-10 Yes [id number] 500mg Take 1 Univers 500 mg 11-10 capsule by ity of capsule 00:00: mouth 3 [place] 00 (three) Medical times Branch daily. ondansetron 2019-10- No 4mg 4 mg, [facility] ers (ZOFRAN-ODT 12-01 Oral, ity of ) 15:15: 14:16 ONCE, 1 [place] disintegrat 00 :00 dose, Mon Med ical ing tablet 09/30/20 at [facility] 4 mg 0915, Routine ondansetron 2019-10- No 4mg 4 mg, [facility] ers (ZOFRAN-ODT 12-01- Oral, ity of ) 14:30: 13:32 ONCE, 1 [place] disintegrat 00 :00 dose, Mon Med ical ing tablet 09/30/20 at [facility] n[facility] 4 mg 0830, Routine ondansetron 2019-10 Yes [id number] 4mg Take 1 Univers 4 mg 2-07 tablet by ity of disintegrat 00:00: mouth [place] ing tablet 00 every 8 Medica l (eight) Branch hours as needed for Nausea and Vomiting (N/V). ondansetron 2019-10 Yes [id number] 4mg Take 1 Univers 4 mg 2-07 tablet by ity of disintegrat 00:00: mouth [place] ing tablet 00 every 8 Medica l (eight) Branch hours as needed for Nausea and Vomiting (N/V). ondansetron 2019-10 Yes [id number] 4mg Take 1 Univers 4 mg 2-07 tablet by ity of disintegrat 00:00: mouth [place] ing tablet 00 every 8 Medica l (eight) Branch hours as needed for Nausea and Vomiting (N/V). ondansetron 2019-10 Yes [id number] 4mg Take 1 Univers 4 mg 2-07 tablet by ity of disintegrat 00:00: mouth [place] ing tablet 00 every 8 Medica l (eight) Branch hours as needed for Nausea and Vomiting (N/V). ciprofloxac 2019 Yes 500 mg = 1 Memoria in 500 mg 4-04 tab, PO, l oral tablet 17:35: [id number], X Yonis 00 4 day, # 8 [...] 4-04 tab, PO, l oral tablet 17:35: [id number], X [place] 00 4 day, # 8 tab, 0 [...] s with feeding tube less than 14 Italian (Dobhoff, J-tube etc) and pediatric and patients. Potassium No Notes: Memori a Chloride 4-03 (Same as: l 13:26: K-Dur 20) [place] "Do Not Crush" Give with food and full glass of water For patients unable to swallow tablet, dissolve in one half glass of water. Allow about 2 minutes for the tablets to disintegra te. Stir before giving to prepare slurry and administer . Please exclude Patient s with feeding tube less than 14 Italian (Dobhoff, J-tube etc) and pediatric and patients. Strattera No 0.5 mg/kg, Me moria 01-24 Route: PO, l 14:00: QAM, Yonis Dosing Weight 75, kg, Start date: 01/24/19 9:00:00 CDT, Duration: 30 day, Stop date: 02/22/19 9:00:00 CDT Strattera 0 No 0.5 mg/kg, Me moria 402 Route: PO, l 14:00: QAM, [place] 00 Dosing Weight 75, kg, Start date: [...] (Same As: l 18:00: KlonoPIN) Yonis 00 Clonazepam No Notes: Memor ia 4- (Same As: l 18:00: KlonoPIN) Yonis Flagyl No Notes: Memoria 4- (Same as: l 15:00: Flagyl) Yonis 00 Take with food/ avoid alcohol Cipro No Notes: May Memori a - interfere l 15:00: w/enteral Yonis 00 feedings - Take 1 hr before or 2 hrs after antacids, dairy pdt & minerals. On empty stomach. Flagyl No Notes: Memoria 4- (Same as: l 15:00: Flagyl) [place] 00 Take with food/ avoid alcohol Cipro No Notes: February Memori a 4- interfere l 15:00: w/enteral [place] 00 feedings - Take 1 hr before [...] PO, ONCE, l mEq oral 14:20: 0 [place] tablet, 00 Refill(s) extended release Metronidazo No 500 mg, Mem oria le 500 MG 4-01 PO, l Oral Tablet 14:20: [id number], 0 [place] [Flagyl] 00 Refill(s) Ciprofloxac No 500 mg, Mem oria in 500 MG 01 PO, l Oral Tablet 14:20: [id number], 0 [place] [Cipro] 00 Refill(s) potassium Yes 40 mEq, Memor ia chloride 20 -01 PO, ONCE, l mEq oral 14:20: 0 [place] tablet, 00 Refill(s) extended release Metronidazo No 500 mg, Mem oria le 500 MG 4-01 PO, l Oral Tablet 14:20: [id number], 0 [place] [Flagyl] 00 Refill(s) Ciprofloxac No 500 mg, Mem oria in 500 MG 4-01 PO, l Oral Tablet 14:20: [id number], 0 Yonis [Cipro] 00 Refill(s) Potassium No Notes: Memori a Chloride - (Same as: l 14:17: K-Dur 20) "Do Not Crush" Give with food and full glass of water For patients unable to swallow tablet, dissolve in one half glass of water. Allow about 2 minutes for the tablets to disintegra te. Stir before giving to prepare slurry and administer . Please exclude Patient s with feeding tube less than 14 Italian (Dobhoff, J-tube etc) and pediatric and patients. Potassium No Notes: Memori a Chloride 01-23 (Same as: l :: K-Dur ) "Do Not Crush" Give with food and full glass of water For patients unable to swallow tablet, dissolve in one half glass of water. Allow about 2 minutes for the tablets to disintegra te. Stir before giving to prepare slurry and administer . Please exclude Patient s with feeding tube less than 14 Italian (Dobhoff, J-tube etc) and pediatric and patients. [...] Reji n 00 tab, 0 Refill(s) Risperidone 2019 Yes 0.5 mg = 1 Memoria 0.5 MG Oral 3-31 tab, PO, l Tablet 21:08: BID, 0 [place] [Risperdal] 00 Refill(s) Strattera Yes 0.5 mg/kg, [...] tab, PO, l Tablet 21:08: BID, 0 [place] [Risperdal] 00 Refill(s) Zosyn No Notes: Memoria [...] oria 3-31 to exceed l 15:03: 400mg/day. [place] 00 (Same As: Ultram) Tramadol No Notes: [...] CDT Ondansetron 2018-0 No Notes: Estrada doni -31 (Same as: l 09:47: Kurtis) Yonis MEDICATION WASTE Product Size: 4 mg Product Wasted: ___ mg Glucagon 2018-0 No 1 mg, Memoria 01-22 Route: IM, l 09:47: Drug form: [place] 00 PDR/INJ, PRN, Dosing Weight 75.994, kg, [...] 01-22 Route: IM, l 09:47: Drug form: [place] PDR/INJ, PRN, Dosing Weight 75.994, kg, PRN Blood Glucose Results, Start date: 01/22/19 4:47:00 CDT, Duration: 30 day, Stop date: 02/21/19 4:46:00 CDT Dextrose 2018- No 12.5 gm, Memor ia 50% Syringe 3-31 25 mL, l 09:47: Route: [place] 00 IVP, Drug Form: INJ, Dosing Weight [...] moria IV 3-31 1,000 l 08:52: ml/hr, [place] 00 Infuse Over: 1 hr, Route: IV, [...] mL, Me moria IV 3- 1,000 l 05:44: ml/hr, Infuse Over: 1 [...] 0.9% 3-31 Same as: l 04:52: BD [place] Posiflush Sterile NS (Bolus) No 1,000 mL, Me moria IV 3-31 1,000 l 04:51: ml/hr, [place] 00 Infuse Over: 1 hr, Route: IV, 1,000, Drug form: INJ, ONCE, Priority: STAT, Dosing Weight 75.994 kg, Start date: 01/21/19 23:51:00 CDT, Stop date: 01/21/19 23:51:00 CDT NS (Bolus) No 1,000 mL, Me moria IV 01-22 1,000 l 04:51: ml/hr, [place] 00 Infuse Over: 1 hr, Route: IV, [...] (KLONOPIN 8-15 mouth. ity of ORAL) 19:02: [place] 27 Medical Branch CITALOPRAM 2016-0 Yes Take by Uni vers HYDROBROMID 8-15 mouth. ity of E 19:02: [place] (CITALOPRAM 27 Medical ORAL) Branch ibuprofen 2016-0 Yes 200mg Take 200 Uni vers (ADVIL) 200 8-15 mg by ity of mg tablet 14:02: mouth [place] [id number] every 6 Medical (six) Branch hours as needed. CLONAZEPAM 2016-0 Yes Take by Uni vers (KLONOPIN 8-15 mouth. ity of ORAL) 14:02: [address] Branch CITALOPRAM 2016-0 Yes Take by Uni vers HYDROBROMID 8-15 mouth. ity of E 14:02: [place] (CITALOPRAM 27 Medical ORAL) Branch ibuprofen 2016-0 Yes 200mg Take 200 Uni vers (ADVIL) 200 8-15 mg by ity of mg tablet 14:02: mouth [place] [id number] every 6 Medical (six) Branch hours as needed. CLONAZEPAM 2016-0 Yes Take by Uni vers (KLONOPIN 8-15 mouth. ity of ORAL) 14:02: [address] Branch CITALOPRAM 2016-0 Yes Take by Uni vers HYDROBROMID 8-15 mouth. ity of E 14:02: [place] (CITALOPRAM 27 Medical ORAL) Branch ibuprofen 2016-0 Yes 200mg Take 200 Uni vers (ADVIL) 200 8-15 mg by ity of mg tablet 14:02: mouth [place] [id number] every 6 Medical (six) Branch hours as needed. CLONAZEPAM 2016-0 Yes Take by Uni vers (KLONOPIN 8-15 mouth. ity of ORAL) 14:02: [place] [id number] Medical Branch CITALOPRAM 2016-0 Yes Take by Uni vers HYDROBROMID 8-15 mouth. ity of E 14:02: [place] (CITALOPRAM 27 Medical ORAL) Branch misoprostol 2016-0 [...] one tab the morning of procedure misoprostol Yes 200ug Take 1 Uni vers [...] H it y of en-caff 00:00: PRN. [place] (ESGIC) 00 Medical 50-325-40 Branch mg tablet butalbital- 2015-0 Yes TK 1 TO 2 U nivers acetaminoph 8-01 T PO Q 8 H it y of en-caff 00:00: PRN. [place] (ESGIC) 00 Medical 50-325-40 Branch mg tablet butalbital- 2015-0 Yes TK 1 TO 2 U nivers acetaminoph 8-01 T PO Q 8 H it y of en-caff 00:00: PRN. [place] (ESGIC) 00 Medical 50-325-40 Branch mg tablet butalbital- 2016-0 Yes TK 1 TO 2 U nivers acetaminoph 8-01 T PO Q 8 H it y of en-caff 00:00: PRN. [place] (ESGIC) 00 Medical 50-325-40 Branch mg tablet dextroamphe 0 Yes TK 1 T PO U nivers tamine-amph 7-20 BID. ity of etamine 00:00: [place] (ADDERALL) 00 Medical 20 mg Branch tablet dextroamphe Yes TK 1 T PO U nivers tamine-amph 7-20 BID. ity of etamine 00:00: [place] (ADDERALL) 00 Medical 20 mg Branch tablet dextroamphe Yes TK 1 T PO U nivers tamine-amph 7-20 BID. ity of etamine 00:00: [place] (ADDERALL) 00 Medical 20 mg Branch tablet dextroamphe Yes TK 1 T PO [...] 2021-09-10 08:01:00 138 mm[Hg] Univer sity of [facility] Diastolic blood 2021-09-10 08:01:00 97 mm[Hg] Unive rsity of [facility] Heart rate 2021-09-10 08:01:00 87 /min [facility] Respiratory rate 2021-09-10 08:01:00 20 /min [facility] in 2021-09-10 08:01:00 98 /min University of Arterial blood by [place] [facility] Pulse oximetry Branch Body temperature 2021-09-10 04:28:51 37.17 Ruthann [facility] Body height 2021-09-10 04:26:00 154.9 cm [facility] Body weight 2021-09-10 04:26:00 81.647 kg [facility] BMI 2021-09-10 04:26:00 34.01 kg/m2 [facility] Systolic blood 2021-09-09 20:06:00 150 mm[Hg] Univer sity of [facility] Diastolic blood 2021-09-09 20:06:00 89 mm[Hg] Unive rsity of [facility] Heart rate 2021-09-09 20:06:00 108 /min [facility] Body temperature 2021-09-09 20:06:00 37.22 Ruthann [facility] Respiratory rate 2021-09-09 20:06:00 18 /min [facility] Oxygen saturation in 2021-09-09 20:06:00 99 /min University of Arterial blood by [place] nicky Pulse oximetry Branch Body weight 2021-09-09 20:05:00 81.647 kg Universi ty of [place] [facility] BMI 2021-09-09 20:05:00 32.40 kg/m2 Universi ty of [place] [facility] Systolic blood 2020-09-30 14:00:00 126 mm[Hg] Univer sity of pressure [place] [facility] Diastolic blood 2020-09-30 14:00:00 84 mm[Hg] Unive rsity of pressure [place] [facility] Heart rate 2020-09-30 14:00:00 79 /min Universi ty of [place] [facility] Oxygen saturation in 2020-09-30 14:00:00 98 /min University of Arterial blood by [facility] nicky Pulse oximetry Branch Body temperature 2020-09-30 13:26:00 37.22 Ruthann Univ ersity of [place] [facility] Respiratory rate 2020-09-30 13:26:00 16 /min Univ ersity of [place] [facility] Body weight 2020-09-30 13:26:00 72.576 kg Universi ty of [place] [facility] BMI 2020-09-30 13:26:00 28.80 kg/m2 Universi ty of [place] [facility] Systolic blood 2020-09-30 14:00:00 126 mm[Hg] Univer sity of pressure [place] [facility] Diastolic blood 2020-09-30 14:00:00 84 mm[Hg] Unive rsity of pressure [place] [facility] Heart rate 2020-09-30 14:00:00 79 /min Universi ty of [place] [facility] Oxygen saturation in 2020-09-30 14:00:00 98 /min University of Arterial blood by [facility] nicky Pulse oximetry Branch Body temperature 2020-09-30 13:26:00 37.22 Ruthann Univ ersity of [place] [facility] Respiratory rate 2020-09-30 13:26:00 16 /min Univ ersity of [place] [facility] Body weight 2020-09-30 13:26:00 72.576 kg Universi ty of [place] [facility] BMI 2020-09-30 13:26:00 28.80 kg/m2 Universi ty of [place] [facility] Temperature Oral (F) 2019-01-28 01:16:00 98.6 F [facility] Yonis Systolic (mm Hg) 2019-01-28 01:16:00 Estrada rial [place] Diastolic (mm Hg) 2019-01-28 01:16:00 Mem orial [place] Heart Rate 2019-01-28 01:16:00 [facility] Yonis Respitory Rate 2019-01-28 01:16:00 Memori al [place] Systolic (mm Hg) 2019-01-27 20:42:00 Estrada rial [place] Diastolic (mm Hg) 2019-01-27 20:42:00 Mem orial Yonis Heart Rate 2019-01-27 20:42:00 Memorial [place] Respitory Rate 2019-01-27 20:42:00 Memori al [place] Temperature Oral (F) 2019-01-27 20:42:00 98.5 F Memorial [place] Systolic (mm Hg) 2019-01-27 17:00:00 Estrada rial Yonis Diastolic (mm Hg) 2019-01-27 17:00:00 Mem orial [place] Temperature Oral (F) 2019-01-27 17:00:00 98.5 F Memorial [place] Heart Rate 2019-01-27 17:00:00 [facility] [place] Respitory Rate 2019-01-27 [facility] [place] Height 2019-01-22 14:35:00 157.48 cm [facility] BMI Calculated 2019-01-22 14:35:00 [facility] [place] Weight 2019-01-22 14:35:00 [facility]is Weight 2019-01-22 04:34:00 [facility] Procedure Date / Time Performing Clinician Source Performed URINALYSIS 2021-09-10 06:03:[address] [facility] URINE DRUG (IMMUNOASSAY) 2021-09-10 06:03:00 Neena Bradford [facility] SCREEN W/O REFLEX XR CHEST 1 VW 2021-09-10 04:57:[address] [facility] CREATINE KINASE 2021-09-10 04:39:[address] [facility] MAGNESIUM 2021-09-10 04:39:[address] [facility] TROPONIN I 2021-09-10 04:39:[address] [facility] COMP. METABOLIC PANEL 2021-09-10 04:39:00 Neena Bradford [facility] ([id number]) Medical [place] CBC WITH DIFF 2021-09-10 04:39:[address] [facility] PROTHROMBIN TIME / INR 2021-09-10 04:39:00 Neena Bradford [facility] ACTIVATED PARTIAL 2021-09-10 04:39:00 Neena Bradford [facility]-BNP 2021-09-10 04:39:00 Neena [facility] COVID-19 (ID NOW RAPID 2021-09-10 04:39:00 Neena Bradford [facility] TESTING) Medical Branch TROPONIN I 2021-09-09 21:49:00 [facility] [place] [facility] COMP. METABOLIC PANEL 2021-09-09 21:49:00 [place] [facility] ([id number]) Medical Branch LITHIUM 2021-09-09 21:49:00 [facility] [place] [facility] CBC WITH DIFF 2021-09-09 21:49:00 [facility] [place] [facility] CONSENT/REFUSAL FOR 2021-09-09 19:51:22 Doctor Unassigned, No Un [facility] DIAGNOSIS AND TREATMENT Name Medical Branch URINALYSIS 2020-09-30 13:27:00 Jackson, [facility] [place] [facility] ADC,CLC OR LCC ONLY - 2020-09-30 13:27:00 JacksonChuy aleman [facility] INFLUENZA A & B DIRECT Medical B ranch ANTIGEN COVID-19 (ID NOW RAPID 2020-09-30 13:27:00 JacksonChuy [facility] TESTING) Medical Branch Encounters Start End Encounter Admission Attending Care Care Encounter Source Date/Time Date/Time Type Type Clinicians Facility Department ID 2021-09-08 Outpatient Humaira-Mbayo VFP VFP [id number] 02:24:16 _A_ [id number] Family Practic e 2021-09-07 Outpatient Humaira-Mbayo VFP VFP [id number] 22:13:27 _A_AH 26098 Family Practic e 2021-09-07 Outpatient Humaira-Mbayo VFP VFP [id number] 13:23:42 _A_ [id number] Family Practic e 2021-09-06 Outpatient Humaira-Mbayo VFP VFP [id number] [facility] 04:23:58 _A_AH 11529 Family Practic e 2021-09-05 Outpatient Bernadine [facility] [id number] [facility] 19:22:48 _A_AH 22319 Family Practic e 2019-01-22 Inpatient E [facility] MED [id number] [facility] W 04:39:00 2021-09-09 2021-09-10 Emergency Sanchez [facility] [id number] Univers 22:20:00 03:02:00 Neena JIMENEZ [id number] i ty of [place] 4.2.7.2.686 [facility] [id number] [address] 2021-09-09 2021-09-10 Emergency X SANCHEZ [facility] ERT [id number] Univers 22:20:00 03:02:00 NEENA cherrie [facility] 2021-09-09 2021-09-10 Emergency X SANCHEZ [facility] ERT [id number] Univers 22:20:00 03:02:00 NEENA tubbs [facility] 2021-09-09 2021-09-09 Emergency Julia [facility] [id number] Univers 14:07:00 17:35:00 Luanne JIMENEZ [id number] i ty of [place] 4.2.7.2.686 [facility] [id number] [address] 2021-09-09 2021-09-09 Orders Doctor BELKYS [id number] Univers 00:00:00 00:00:00 Only Unassigned, LANA 350.1.13.10 ity of [place] [facility] 4.2.7.2.[id number] [facility] 009 Branch 2020-09-30 2020-09-30 Emergency Singer NMSARAI [id number] 07:22:00 08:18:00 Chuy Jimenez [id number] [place] 4.2.7.2.686 [place] [id number] 2020-09-30 2020-09-30 Emergency Singer NMSARAI [id number] Univers 07:22:00 08:18:00 Chuy Jimenez 350.1.13.10 i ty lev [place] 4.2.7.2.686 [facility] [id number] [place] [address] Branch 2020-09-30 2020-09-30 Emergency X SINGER [facility] ERT [id number] Univers 07:22:00 07:22:00 CHUY tubbs [facility] 2020-03-04 2020-03-14 Inpatient [address] [facility] PSY [id number] 15:38:00 15:25:00 Chente [facility] 2019-01-22 2019-01-28 Inpatient [facility] [id number] Memoria 04:33:00 04:40:[address] [facility] 2018-02-21 2018-02-20 [facility] [id number] [facility] 14:48:00 13:18:00 [facility] Results Test Description Test Time Test Comments Results Result Comments Source TROPONIN I 2021-09-10 05:26:53 Test Item Value Reference Range Interpretation Comme nts TROPONIN I (test code = 0.003 ng/mL See_Comment [Au tomated message] The [id number]) system which ge nerated this result tra [...] biotin. Lab Interpretation Normal (test code = 22361-1) [facility] [id number] 05:24:16 Test Item Value Reference Range Interpretation Comments NT-proBNP (test code 35 pg/mL See_Comment [Autom ated = 5372548792) message] The system which generated this result transmitted reference range : <=125. The reference range was not used to interpret this result as normal/abnormal . PERRY (test code = PERRY) Biotin has been reported to cause a negative bias, interpret results relative to patient's use of biotin. Lab Interpretation Normal (test code = 16781-1) [facility]2021-[facility]-17 05:16:51 Test Item Value Reference Range Interpretation Comments MAGNESIUM (test code = 0277745264) 1.8 mg/dL 1.7-2.4 Lab Interpretation (test code = Normal 73594-6) [facility]. METABOLIC PANEL ([id number])2021-09-10 05:16:31 Test Item Value Reference Range Interpretation Comments NA (test code = 139 mmol/L 135-145 3377461025) K (test code = 4.0 mmol/L 3.5-5.0 0407075937) CL (test code = 108 mmol/L 98-108 0875506758) CO2 TOTAL (test code 25 mmol/L 23-31 = 0281529440) AGAP (test code = 2-16 8682674893) BUN (test code = 14 mg/dL 7-23 0063351402) GLUCOSE (test code = 88 mg/dL 70-110 7537752678) CREATININE (test code 0.89 mg/dL 0.50-1.04 = 9366422548) TOTAL BILI (test code 0.5 mg/dL 0.1-1.1 = 0189895073) CALCIUM (test code = 10.3 mg/dL 8.6-10.6 5293753289) T PROTEIN (test code 6.9 g/dL 6.3-8.2 = 2212062501) ALBUMIN (test code = 4.3 g/dL 3.5-5.0 4098480639) ALK PHOS (test code = 72 U/L 34-122 8083018621) ALTv (test code = 17 U/L 5-35 1742-6) AST(SGOT) (test code 29 U/L 13-40 = 6778604170) eGFR (test code = mL/min/1.73m2 3322989877) PERRY (test code = PERRY) Association of [...] or urine or abnormalities in imaging tests). [facility] [id number] 05:16:16 Test Item Value Reference Range Interpretation Comments CK (test code = 5160288977) 267 U/L 33-194 H Lab Interpretation (test code = Abnormal 93042-0) [facility] THRMPLAS [id number] 05:05:32 Test Item Value Reference Range Interpretation Comments APTT Patient (test See_Comment [Automat ed code = 3173-2) message] The system which generated this result transmitted reference range : 23 - 38 Seconds . The reference range was not used to interpr et this result as normal/abnormal . PERRY (test code = PERRY) The [facility] patient population mean normal value for aPTT is 30 seconds. Lab Interpretation Normal (test code = 17384-1) [facility] / [id number] 05:03:30 Test Item Value Reference Range Interpretation [...] tions. Lab Interpretation (test Normal code = 48460-6) [facility] WITH [id number] 04:57:13 Test Item Value Reference Range Interpretation [...] RDW-SD (test code = 41.2 fL 39.0-49.9 09589-2) RDW-CV (test code = 13.0 % 12.0-15.5 788-0) PLT (test code = See_Comment H [Automated 777-3) message] The sy stem which generated this result transmitted reference range : 166 - 358 10*3/ ?L. The reference r katie was not used to interpret this result as normal/abnormal . MPV (test code = 9.6 fL 9.5-12.9 80451-8) NRBC/100 WBC (test See_Comment [Automat ed code = 1202346839) message] The system which generated this result transmitted reference range : 0.0 - 10.0 /100 WBCs. The refer ence range was not u sed to interpret th is result as normal/abnormal . NRBC x10^3 (test code <0.01 See_Comment [Auto mated = 1560142420) message] The s ystem which generated this result transmitted reference range : 10*3/?L. The reference range was not used to interpret this result as normal/abnormal . GRAN MAT (NEUT) % 61.9 % (test code = 770-8) IMM GRAN % (test code 0.30 % = 2657958140) LYMPH % (test code = 26.0 % 736-9) MONO % (test code = 9.5 % 5905-5) EOS % (test code = 1.6 % 713-8) BASO % (test code = 0.7 % 706-2) GRAN MAT x10^3(ANC) 5.91 10*3/uL 1.88-7.09 (test code = 4935937174) IMM GRAN x10^3 (test 0.03 10*3/uL 0.00-0.06 code = 4814318203) LYMPH x10^3 (test code 2.48 10*3/uL 1.32-3.29 = 731-0) MONO x10^3 (test code 0.91 10*3/uL 0.33-0.92 = 742-7) EOS x10^3 (test code = 0.15 10*3/uL 0.03-0.39 711-2) BASO x10^3 (test code 0.07 10*3/uL 0.01-0.07 = 704-7) Lab Interpretation Abnormal (test code = 55810-2) [facility]JESS[facility] [id number] 22:24:55 Test Item Value Reference Interpretation Comments Range TROPONIN I (test 0.002 ng/mL See_Comment [Automated code = 3570034728) message] The system which generated this result [...] biotin. Lab Interpretation Normal (test code = 29773-5) [facility] HospitalLITHIUM2021-11-16 22:24:34 Test Item Value Reference Range Interpretation Comments Tonsina (test code = <0.2 0.6-1.2 L 5838983392) PERRY (test code = PERRY) Toxic Range: ? Greater than 1.2 mmol/L Lab Interpretation (test Abnormal code = 46935-4) [facility] METABOLIC PANEL (10214)2021-09-09 22:13:54 Test Item Value Reference Range Interpretation Comments NA (test code = 139 mmol/L 135-145 8374934811) K (test code = 4.0 mmol/L 3.5-5.0 5741531978) CL (test code = 105 mmol/L 98-108 2450554517) CO2 TOTAL (test code 26 mmol/L 23-31 = 7045055976) AGAP (test code = 2-16 6494577688) BUN (test code = 11 mg/dL 7-23 5842741078) GLUCOSE (test code = 109 mg/dL 70-110 0989411980) CREATININE (test code 0.71 mg/dL 0.50-1.04 = 5932092882) TOTAL BILI (test code 0.6 mg/dL 0.1-1.1 = 2988035880) CALCIUM (test code = 10.4 mg/dL 8.6-10.6 2312461405) T PROTEIN (test code 7.6 g/dL 6.3-8.2 = 7479531094) ALBUMIN (test code = 4.7 g/dL 3.5-5.0 2934231234) ALK PHOS (test code = 78 U/L 34-122 3167904917) ALTv (test code = 19 U/L 5-35 2-6) AST(SGOT) (test code 28 U/L 13-40 = 7986920667) eGFR (test code = mL/min/1.73m2 2682974094) PERRY (test code = PERRY) Association of [...] or urine or abnormalities in imaging tests). [facility] WITH [id number] 22:03:32 Test Item Value Reference Range Interpretation Comments WBC (test code = See_Comment [Automated 9461-2) message] The sy stem which generated this [...] RDW-SD (test code = 40.2 fL 39.0-49.9 07349-6) RDW-CV (test code = 12.9 % 12.0-15.5 788-0) PLT (test code = See_Comment H [Automated 777-3) message] The sy stem which generated this result transmitted reference range : 166 - 358 10*3/ ?L. The reference r katie was not used to interpret this result as normal/abnormal . MPV (test code = 9.4 fL 9.5-12.9 L 68620-7) NRBC/100 WBC (test See_Comment [Automat ed code = 0121941732) message] The system which generated this result transmitted reference range : 0.0 - 10.0 /100 WBCs. The refer ence range was not u sed to interpret th is result as normal/abnormal . NRBC x10^3 (test code <0.01 See_Comment [Auto mated = 5724558449) message] The s ystem which generated this result transmitted reference range : 10*3/?L. The reference range was not used to interpret this result as normal/abnormal . GRAN MAT (NEUT) % 67.1 % (test code = 770-8) IMM GRAN % (test code 1.00 % = 7848515585) LYMPH % (test code = 21.4 % 736-9) MONO % (test code = 7.9 % 5905-5) EOS % (test code = 1.8 % 713-8) BASO % (test code = 0.8 % 706-2) GRAN MAT x10^3(ANC) 7.35 10*3/uL 1.88-7.09 H (test code = 2708358888) IMM GRAN x10^3 (test 0.11 10*3/uL 0.00-0.06 H code = 3017829515) LYMPH x10^3 (test code 2.34 10*3/uL 1.32-3.29 = 731-0) MONO x10^3 (test code 0.86 10*3/uL 0.33-0.92 = 742-7) EOS x10^3 (test code = 0.20 10*3/uL 0.03-0.39 711-2) BASO x10^3 (test code 0.09 10*3/uL 0.01-0.07 H = 704-7) Lab Interpretation Abnormal (test code = 14726-4) [facility],CLC OR LCC ONLY - INFLUENZA A & B DIRECT LNZOVXW2547-20-51 14:04:00 Test Item Value Reference Range Interpretation Comments Influenza A (test code = 26656-2) Negative Negative Influenza B (test code = 20567-8) Negative Negative Lab Interpretation (test code = Normal 51450-1) [facility]OVID-[facility] (ID NOW RAPID TESTING)2020-09-30 14:03:00 Test Item Value Reference Range Interpretation Comments SARS-CoV-2 Rapid ID NOW Not Detected Not Detected (test code = 84501-8) PERRY (test code = PERRY) ID NOW COVID-19 Assay is an isothermal nucleic acid amplification test intended for the qualitative detection of nucleic acid from SARS-CoV-2 viral RNA in nasopharyngeal (BRIDGE [employer]CH[employer]) specimens. It is used under Emergency Use [...] indicated. Lab Interpretation Normal (test code = 64747-4) [facility]IN[facility]IS2020-12-07 13:55:00 Test Item Value Reference Range Interpretation Comments APPEARANCE (test code = Hazy Clear A 8160411693) COLOR (test code = Yellow Yellow 2831501323) PH (test code = 4.8-8.0 4170373339) SP GRAVITY (test code = 1.003-1.030 0919493590) GLU U QUAL (test code = Normal Normal 8137875604) BLOOD (test code = Negative Negative 9436133581) KETONES (test code = 5 mg/dL Negative A 8396706335) PROTEIN (test code = Negative Negative 2887-8) UROBILIN (test code = 2.0 mg/dL Normal A 6904730779) BILIRUBIN (test code = Negative Negative 3486264191) NITRITE (test code = Negative Negative 8228957307) LEUK ROZINA (test code = 25/uL Negative A 0228029699) RBC/HPF (test code = See_Comment [Autom ated message] 0890927877) The system [employer] generated this result transmit ngozi reference range : 0 - 3 HPF. The refe rence range was not u sed to interpret th is result as normal/abnormal . WBC/HPF (test code = See_Comment [Autom ated message] 1388775552) The system [employer] generated this result transmit ngozi reference range : 0 - 5 HPF. The refe rence range was not u sed to interpret th is result as normal/abnormal . BACTERIA (test code = Few Negative A 9920173167) MUCOUS (test code = Slight Negative LPF A 5634440395) SQ EPITH (test code = HPF 1194713821) Lab Interpretation (test Abnormal code = 77302-5) [facility] HospitalRPR Qhpnphzpsxh1048-52-13 16:42:24 Test Item Value Reference Range Interpretation [...] = 10-24-2020 N Expiration Dt) Thyroid Stimulating Dfmyyam1096-70-91 08:35:16 Test Item Value Reference Range Interpretation Comments TSH (test code = TSH) 1.170 mIU/mL 0.270-4.200 Lipid Lxuyj2543-96-75 08:21:19 Test Item Value Reference Range Interpretation Comments Cholesterol Total 254 mg/dL 0-200 H RISK OF HE ART (test code = DISEASEPublishe d by Cholesterol Total) [employer] Cathie lyte Optimal Borderl ine [...] calculation is LDL/HDL Ratio=L DL Calc/HDL Chol GXRMSFWRNJVX8565-94-01 08:24:008.6[facility] JngzmbtWGDQIWWQTDZL6767-96-66 08:24:63323Woavpbcp QoeajnyQMQJZMCQCZMS4795-84-11 08:24:0027[facility] AAISKKKQMYGD5152-67-74 08:24:70253Pqlvjrko QuybnblXYQXBHXHNQVE0666-37-53 08:24:003.6[facility] IcdkoogWVZRUTWOHHXZ1902-65-63 08:24:000.70[facility] [place] DJHBXWTSMCKP9535-99-09 08:24:008.4[facility] XsfhnkiIXCAESZVQJNP6471-83-23 08:24:88776Uieeupyj HuqqulnMEKXJAIVKGWY4439-00-37 08:24:0086[facility] SIGKJTJXOMJD8302-08-45 08:24:006[facility] TxuuwdfGIYUXUBVLO4713-80-11 08:24:00 11.6[facility] LqgphsaSAFAOWHSWT9145-82-92 08:24:003.78[facility]annHEMATOLOGY 2019-01-26 08:24:0013.3[facility] TulqcpwJLLITBHWTA9128-56-16 08:24:0034.0[facility] ShxliihLNJHRZRQBV0918-70-10 08:24:006.3[facility] EoghvkeDYFNHNUEDO6112-78-38 08:24:00 Test Item Value Reference Range Interpretation Comments MCH (test code = MCH) 30.7 pg 27.0-31.0 [facility] BxjvclnGUVITUFSHO7664-57-54 08:24:0090.3[facility]annHEMATOLOGY 2019-01-26 08:24:0034.2[facility] SaryecxHLSYGYJQMG2712-71-34 08:24:47392Iuudwqxw QjwfkzuOXLVSVSYPN4512-13-97 08:24:007.5[facility] CgqifawFJEDDFPDRRXP8673-67-53 08:24:008.6[facility] ZlmtmlrYSTIKKRAIWIB0231-46-20 08:24:77493Wlayiwvm Yonis OAEOZAENTUBU6982-12-72 08:24:0027[facility] KucclewKPJOKAIWKWRY2111-04-43 08:24:00 139[facility] CxnlseyDJSQWKBMOAJP0983-24-40 08:24:003.6[facility] IKNCOZUJXOQB2615-04-28 08:24:000.70[facility] SvuvbveSQXDMWFNVQJF6065-06-65 08:24:008.4[facility] BcwyuqdANPZIMYRISMB5392-81-64 08:24:63333Zbzxbbvn Yonis WCCOHBEJWPUK2218-73-45 08:24:0086[facility] QzbpesmZGZWBYHIDSTQ6512-91-24 08:24:00 6[facility] BnokibrEMEUMMUEEO5603-32-65 08:24:0011.6[facility]annHEMATOLOGY 2019-01-26 08:24:003.78[facility] RpdbausASGYFITIXR6008-11-51 08:24:0013.3[facility] WhuxicsISESSFRHAH1747-10-10 08:24:0034.0[facility] HroxiimDHWPXARDPY7275-37-82 08:24:006.3[facility] EicxjcbHKXNDEQJXP5201-62-17 08:24:00 Test Item Value Reference Range Interpretation Comments MCH (test code = MCH) 30.7 pg 27.0-31.0 [facility] KlfsbwpRELXXJGOAU3073-98-48 08:24:0090.3[facility]annHEMATOLOGY 2019-01-26 08:24:0034.2[facility] RdycodqOTKUQNMNYI0447-08-56 08:24:88278Yqczhzsv TrdyphkMIMTSDKEAP8273-17-32 08:24:007.5[facility] HermannCHEM IEXNB1298-94-12 09:14:34803Ljkivnrf HermannCHEM JESHP5055-13-83 09:14:008.5[facility]annCHEM LRIUI1329-02-35 09:14:0013.3[facility]annCHEM APJGQ0269-05-58 09:14:0024 [facility]annCHEM EMUMF5269-94-98 09:14:36940Voghwylj HermannCHEM PANEL 2019-01-25 09:14:0081[facility]annCHEM WTBTB9680-40-79 09:14:002[facility]annCHEM LMSFB1466-95-19 09:14:003.3[facility]annCHEM OCVCI9219-38-34 09:14:000.60[facility]annCHEM KSJTY1195-54-79 09:14:56781Jtaqxnom HermannCHEM TEAXT9787-80-75 09:14:63800Sszuiyiq HermannCHEM IFTHK3230-60-33 09:14:008.5 [facility]annCHE[facility] LFIBM5760-50-05 09:14:0013.3[facility]annCHEM PANEL 2019-01-25 09:14:0024[facility]annCHEM FFRYT3495-28-98 09:14:78254Bfesqcpj HermannCHEM LIIVB0181-00-44 09:14:0081[facility]annCHEM CHCKV6023-56-11 09:14:002[facility]annCHEM DTDHJ5456-22-23 09:14:003.3[facility]annCHEM ESJEM8063-70-32 09:14:000.60[facility]annCHEM WUUIX5045-50-03 09:14:33194 [facility]annMOLECULAR UWGZUSWZTF1808-40-25 16:22:00Negative (01/23/19 11:22 AM)[facility] HermannMOLECULAR CBCMCVIDES0416-18-73 16:22:00Negative (01/23/19 11:22 AM)[facility]annCHEM DZKVJ8284-27-59 15:42:002.76[facility]annCHEM PANEL 2019-01-23 15:42:002.76[facility]annCHEM ZDZXZ3793-83-46 12:32:000.9[facility]annCHEM WXNMK9831-95-44 12:32:000.9[facility]annCHEM NGVBU0937-67-45 10:50:002.0[facility]annCHEM NNGUA4515-47-94 10:50:34165Aqkxkswy HermannCHEM JDHJY3358-03-40 10:50:0023[facility]annCHEM QREQE4814-30-31 10:50:77848 [facility]annCHEM WWBSB1802-53-32 10:50:003.1[facility]annCHEM PANEL 2019-01-23 10:50:62047Hsmysqoh HermannCHEM IYMBN6181-69-53 10:50:005[facility]annCHEM PCQDY8038-97-61 10:50:000.50[facility]annCHEM KVBFO1839-61-71 10:50:007.8[facility]annCHEM MVOWM8945-74-81 10:50:0083[facility]annCHEM FUQKK1477-56-13 10:50:0010.1[facility] NqqqcxdBVIRXTRWUX8391-11-10 10:50:000.2 [facility] TrwzulxAXGQJYVPER2577-53-17 10:50:000.8[facility]annHEMATOLOGY 2019-01-23 10:50:005.5[facility] GxfkjujOIEXYYSXFE1092-36-96 10:50:002.2[facility] ZbaghgfRIZTGROKJE5698-35-52 10:50:000.1[facility] QzpupkaBLIEXVXBOT6130-98-27 10:50:0063.6[facility] LxxjjitVPSEFRAQGO2032-58-09 10:50:008.9[facility] [place] GRJALSIZDA3520-97-04 10:50:002.3[facility] HdalftoJUOIRGFZQK9499-83-16 10:50:00 Normal (01/23/19 5:50 AM)[facility] YhpizjcEGQHJVWMBZ1984-41-72 10:50:00Normal (01/23/19 5:50 AM)[facility] MfbpqxvZDAINSAJCL0610-81-31 10:50:0025.1[facility] OhfvxauWPZUYPTLCO7667-49-36 10:50:0013.1[facility] MyhbdnwKNNDNSRCID2419-71-64 10:50:87896Wxjhfbcv ByahxpwZCETBEBHKR5590-12-84 10:50:007.7[facility] [place] TOGFVTQTHH8831-66-83 10:50:008.6[facility] WyxkogvEEPAFGZZZT3247-57-03 10:50:00 10.0[facility] KwjmyodUDHJHPKVIM2980-80-83 10:50:0034.[facility] HermannHEMATOLOGY 2019-01-23 10:50:0028.7[facility] AbvosvmFUQSBQBPMQ8723-43-88 10:50:0087.8[facility] PrxkcadIOUPNJISSJ2968-75-65 10:50:00 Test Item Value Reference Range Interpretation Comments MCH (test code = MCH) 30.4 pg 27.0-31.0 [facility] PgnnqqlCGRLQVBECE6475-32-60 10:50:003.27[facility] HermannHEMATOLOGY 2019-01-23 10:50:99224Bocijynj TpwhybpEGZZHQLQPX3450-29-61 10:50:007.7[facility] SkzhsfgZNDGOFLPXR4087-91-39 10:50:008.[facility]orial XiswqrwXBXJAVJQBH8348-11-16 10:50:0010.0[facility] UywiktyZOMMWPYXIA0314-94-98 10:50:0034.[facility] [place] GAMPRKFASL1629-05-86 10:50:0028.7[facility] OzbezmaQKSOWPFAEY2182-08-21 10:50:00 87.8[facility] JxvppprRFTILCQMEI8693-39-38 10:50:00 Test Item Value Reference Range Interpretation Comments MCH (test code = MCH) 30.4 pg 27.0-31.0 [facility] EdvejfrDHHWPJGAFB8277-95-14 10:50:003.27[facility] HermannCHEM PANEL 2019-01-23 10:50:002.0[facility] HermannCHEM MPIJD7041-49-86 10:50:13280Opbsisly HermannCHEM LKEQU7312-51-46 10:50:0023[facility]annCHEM XSQLD8695-17-20 10:50:37844Ycbumgoj HermannCHEM MHIXM6171-34-76 10:50:003.1[facility]annCHEM VJZOP5817-15-27 10:50:24182Rkyksoso HermannCHEM KOLJV3309-71-63 10:50:005 [facility]annCHEM OQXUB1826-69-51 10:50:000.50[facility]annCHEM PANEL 2019-01-23 10:50:007.8[facility]annCHEM OBZBZ4756-12-53 10:50:0083[facility]annCHEM CQJNC2070-57-71 10:50:0010.1[facility] SbzcthjQGDCECZABQ0185-83-65 10:50:000.2[facility] ZumnjpaDMICOSAGKT6013-21-14 10:50:000.8[facility] EXPGZCVBHY2017-62-06 10:50:005.5[facility] LlljxfeDTBQCBJSWR3446-71-31 10:50:002.2 [facility] FqexxkuWLYNECHLIA4682-14-19 10:50:000.1[facility]annHEMATOLOGY 2019-01-23 10:50:0063.6[facility] PukhgyrNMBAJQZNHS1634-47-53 10:50:008.9[facility] LzjadmhJTJZTAIXZP1991-53-54 10:50:002.3[facility] OzvbdjhLNBHKCXVRB8673-21-84 10:50:00Normal (01/23/19 5:50 AM)[facility] QudrwskVLBMUXCCXY7362-71-98 10:50:00 Normal (01/23/19 5:50 AM)[facility] YscehbjNELSRIHCRS5708-46-83 10:50:0025.1[facility] GgmtekdVVPSLAFYNW9530-43-89 10:50:0013.1[facility] HermannCHEM WTOXR0664-02-44 11:32:002.4[facility] HermannCHEM LLTEI5494-62-66 11:32:002.4[facility] HermannCHEM DOVSD6590-25-94 09:04:003.0[facility]annCHEM JTPTV4355-98-20 09:04:003.0 [facility]UR[facility] AND SLCKA8361-44-71 07:14:00 Test Item Value Reference Range Interpretation Comments UA Spec Grav (test code = UA Spec 1.014 1 Grav) [facility] RRXZX3852-40-91 07:14:00 Test Item Value Reference Range Interpretation Comments UA pH (test code = UA pH) 6.0 1 5.0-8.0 [facility] AKCJW3718-39-16 07:14:00Negative (01/22/19 2:14 AM) [facility] IZXLR3853-68-59 07:14:00Negative *NA*(01/22/19 2:14 AM) [facility] NGOMW2315-25-65 07:14:00Negative *NA*(01/22/19 2:14 AM) [facility] TRAUZ1589-44-49 07:14:00Negative *NA*(01/22/19 2:14 AM) [facility] NLWDI9589-46-44 07:14:00Negative (01/22/19 2:14 AM) [facility] EAZUP5903-07-27 07:14:00Negative (01/22/19 2:14 AM) [facility] BQGJO2858-10-70 07:14:00Negative (01/22/19 2:14 AM) [facility] MGPYH7096-22-92 07:14:00<1[facility] YVONR2859-54-68 07:14:0025[facility] MGBYF7262-01-10 07:14:002 [facility] GHJFR5482-17-28 07:14:00Light Yellow *NA*(01/22/19 2:14 AM)[facility] AHVZL3570-94-19 07:14:00Clear (01/22/19 2:14 AM) [facility] PHPSE5717-74-19 07:14:00 Test Item Value Reference Range Interpretation Comments UA Spec Grav (test code = UA Spec 1.014 1 Grav) [facility] IOVET0454-92-24 07:14:00 Test Item Value Reference Range Interpretation Comments UA pH (test code = UA pH) 6.0 1 5.0-8.0 [facility] YVUFI5756-29-94 07:14:00Negative (01/22/19 2:14 AM) [facility] YXBFK8161-77-70 07:14:00Negative *NA*(01/22/19 2:14 AM) [facility] YUYMZ7410-57-45 07:14:00Negative *NA*(01/22/19 2:14 AM) [facility] POHZF9812-09-92 07:14:00Negative *NA*(01/22/19 2:14 AM) [facility] QNNQL3556-04-25 07:14:00Negative (01/22/19 2:14 AM) [facility] OVQQZ4179-53-14 07:14:00Negative (01/22/19 2:14 AM) [facility] LFTXC3787-63-15 07:14:00Negative (01/22/19 2:14 AM) [facility] YYCEL1011-85-71 07:14:00<1[facility] WTIHK4377-54-61 07:14:0025[facility] BAWZC6240-03-46 07:14:002 [facility] KQRFK3049-99-79 07:14:00Light Yellow *NA*(01/22/19 2:14 AM)[facility] SUIKW0494-30-31 07:14:00Clear (01/22/19 2:14 AM) [facility] NdrrekqVFIKV0641-65-71 05:16:000.90[facility] KgzjwduEZWPY8305-27-33 05:16:000.90[facility] XpncsboJSKQOWMGIP7237-80-31 05:01:000.9[facility] NIPDNFFYKZ4952-50-01 05:01:008.6[facility] XzkzsvpICGPIFMSFC3050-55-30 05:01:000.6 [facility] JdtcbmiQPWLYJKLEA5516-86-87 05:01:0086.5[facility]annHEMATOLOGY 2019-01-22 05:01:005.7[facility] BawrcmjBDSFQBKNKW8360-95-08 05:01:006.9[facility] EconwqxRNSZMBOXES3149-16-86 05:01:009.9[facility] TbxfxshTRIZDXGKXI5282-25-24 05:01:0032.8[facility] XdxqkklIIAXNGCQUO0838-07-25 05:01:0013.6[facility] HRJRFNRYFT4114-22-47 05:01:18755Nsvkuceu JjederxNNXCOSHNHF6353-20-61 05:01:007.3 [facility] MeikhfwHIKNXIRLRX3891-05-85 05:01:0014.0[facility]annHEMATOLOGY 2019-01-22 05:01:004.85[facility] UzyphhvQOXVOMRMTB2998-10-33 05:01:0042.7[facility] YfgimwyRGEQYCXRWY1690-88-94 05:01:00 Test Item Value Reference Range Interpretation Comments MCH (test code = MCH) 29.0 pg 27.0-31.0 [facility] DfvprsiQSYAWKFGHC3520-80-09 05:01:0088.2[facility]annHEMATOLOGY 2019-01-22 05:01:00 Test Item Value Reference Range Interpretation Comments INR (test code = INR) 0.96 1 0.85-1.17 [facility] UtnktogCZSOLCNFDR8475-69-08 05:01:00 Test Item Value Reference Range Interpretation Comments PT (test code = PT) 12.6 s 12.0-14.7 [facility] DhnloqoHEMZEAIVOG6627-38-52 05:01:00 Test Item Value Reference Range Interpretation Comments PTT (test code = PTT) 25.9 s 22.9-35.8 [facility] LJHEUSN8410-59-55 05:01:00Negative (01/22/19 12:01 AM) [facility]annCARDIAC HOHFSNO8986-85-53 05:01:00<0.02[facility] CARDIAC FMVUVOW5850-80-83 05:01:0049[facility]annCHEM MQEYJ7347-00-14 05:01:000.6[facility] HermannCHEM UPJDK9909-61-36 05:01:00962Lcucitgz HermannCHEM HXWUE7612-08-75 05:01:004.0[facility]annCHEM ORJVH5469-37-14 05:01:0017 [facility]annCHE[facility] WMWLQ2901-09-56 05:01:0025[facility]annCHEM PANEL 2019-01-22 05:01:008.1[facility]annCHEM NCAIN1717-03-40 05:01:00 Test Item Value Reference Range Interpretation Comments B/C Ratio (test code = B/C Ratio) 20 1 6-25 [facility] HUSVK2382-72-16 05:01:00 Test Item Value Reference Range Interpretation Comments A/G Ratio (test code = A/G Ratio) 1.0 1 0.7-1.6 [facility] KHQDG5958-32-59 05:01:004.1[facility] HermannCHEM PANEL 2019-01-22 05:01:006.90[facility] CiuloyxBWFPNMVVWYMZL6324-65-86 05:01:00Negative *NA*(01/22/19 12:01 AM)[facility] LahvnwbFXJJNRFBTI6082-62-04 05:01:000.1[facility] ZbrcmwfLKOUNRXVPO4741-15-81 05:01:000.7[facility] FgyidmtLRDHLQWDJG6212-82-39 05:01:000.0[facility] MrytmxjUTRYBZFCCH9910-28-19 05:01:000.0[facility] [place] JUYCGEETCJ5423-19-94 05:01:000.9[facility] XrzsnkdHVDXQORQKW7457-70-42 05:01:008.6 [facility] WmolrvrRJTLBSWLBF1529-09-03 05:01:000.6[facility] HermannHEMATOLOGY 2019-01-22 05:01:0086.5[facility] ZpuupncUJPINHKROH8297-20-71 05:01:005.7[facility] PsigbfjVFMRISGXYM0485-05-21 05:01:006.9[facility] EosfjfdWMJBBEDDMV3607-03-54 05:01:009.9[facility] KtdksqcCUJVJXCDZJ1207-43-19 05:01:0032.8[facility] AMGOVEDSWS3279-46-63 05:01:0013.6[facility] BeeumluHVUAALEPVV5431-98-40 05:01:00 443[facility] AdtbpdcQRLLYXOBLV7671-43-95 05:01:007.3[facility] HermannHEMATOLOGY 2019-01-22 05:01:0014.0[facility] QzdlmepPSOHYRJTFA5831-87-50 05:01:004.85[facility] JyverryRDQIRGEXOJ5671-24-26 05:01:0042.7[facility] CsqodvjUFJCJXEEUE4352-35-67 05:01:00 Test Item Value Reference Range Interpretation Comments MCH (test code = MCH) 29.0 pg 27.0-31.0 [facility] AnagrnpRWLSYVISYC7778-09-75 05:01:0088.2[facility] HermannHEMATOLOGY 2019-01-22 05:01:00 Test Item Value Reference Range Interpretation Comments INR (test code = INR) 0.96 1 0.85-1.17 [facility] VelwcobKPMVAPLZXH3356-72-17 05:01:00 Test Item Value Reference Range Interpretation Comments PT (test code = PT) 12.6 s 12.0-14.7 [facility] QqjomgxBEATGGKAYY7403-45-39 05:01:00 Test Item Value Reference Range Interpretation Comments PTT (test code = PTT) 25.9 s 22.9-35.8 [facility] MDZSKET8780-45-45 05:01:00Negative (01/22/19 12:01 AM) [facility] BXDSFKX9969-97-27 05:01:00<0.02[facility] CARDIAC CDMKTPA5591-29-77 05:01:0049[facility]annCHEM ZOVSU4140-71-68 05:01:000.6[facility]annCHEM TNEZA9457-58-16 05:01:84826Isymvouz HermannCHEM UOSGN5931-75-44 05:01:004.0[facility]annCHEM FOBST0115-73-36 05:01:0017 [facility] HermannCHEM GPWFR5257-01-26 05:01:0025[facility] HermannCHEM PANEL 2019-01-22 05:01:008.1[facility]annCHEM GDLCC6904-64-64 05:01:00 Test Item Value Reference Range Interpretation Comments B/C Ratio (test code = B/C Ratio) 20 1 6-25 [facility] HermannCHEM KQJJS0697-70-54 05:01:00 Test Item Value Reference Range Interpretation Comments A/G Ratio (test code = A/G Ratio) 1.0 1 0.7-1.6 [facility] HermannCHEM ZRUUL5636-01-77 05:01:004.1[facility] HermannCHEM PANEL 2019-01-22 05:01:006.90[facility]mfoGRQZXZMQHIBRG4125-49-92 05:01:00Negative *NA*(01/22/19 12:01 AM)[facility] FslahhsNPEOJIWKEP8723-11-37 05:01:000.1[facility] GicqrthHLXDMNFHQC5571-84-95 05:01:000.7[facility] VoacadsRPHZLDXTDN7084-08-13 05:01:000.0[facility] FdpvfsvPZJJOCMEKZ2734-68-14 05:01:000.0[facility] GqxuqgvGXE4D 2018-02-20 14:36:00 Test Item Value Reference Range [...] 0.00-0.01 N code = ETOHU) Comprehensive Metabolic Nozcx2896-65-58 14:36:00 Test Item Value Reference Range Interpretation [...] is not provided , and the patient isAfbradyan-Amnazia can, multiply by 1.2 12. If sex [...] the [employer],http ://nkd ep.nih.gov Urinalysis Ntomocff0739-23-32 14:32:00 Test Item Value Reference Range Interpretation Comments Color (test code = COLOR) Yellow Yellow,Straw,Pl N yellow Clarity (test code = Clear Clear N CLAR) Specific [place] (test 1.024 1.001-1.035 N code = SPGR) [...] code = Few /HPF BACT) CBC with Zeqruvoymopw6456-16-72 14:21:00 Test Item Value Reference Range Interpretation [...] code = ALYMPH) 3.0 K/cumm 0.5-4.6 N [place] Abs (test code = AMONO) 0.5 K/cumm 0.0-1.2 N Eos Abs (test code = AEOS) 0.19 K/cumm 0.00-0.74 N [place] Abs (test code = ABASO) 0.1 K/cumm 0.00-0.21 N
[2021-09-13] MEDS ORDERED: NA CHLORIDE 0.9% 1,000 ML ONE (17:44)
[2021-09-13] MEDS ORDERED: LORazepam 2 MG/ML VIAL ONE (17:44)
[2021-09-13] MEDS ORDERED: ONDANSETRON 4 MG/2 ML VIAL ONE (17:44)
[2021-09-13 18:00] LABS: Absolute Lymphocytes (CBC) 1.5 K/uL (0.7-4.9); Basophils % 0.9 % (0-1.3); Hematocrit 41.1 % (36.0-45.0); Lymphocytes % 15.4 % (15.3-44.8); MPV 7.6 fL (7.6-11.3); RBC Red Blood Cell Count 4.83 M/uL (3.86-4.86)
[2021-09-13 18:04] LABS: Protime INR 0.93
--- NOTE | 2021-09-13 18:13 | RAD REPORT ---
EXAM DESCRIPTION: RAD - Chest Single View - 09/13/2021 6:02 pm CLINICAL HISTORY: CHEST PAIN Chest pain. COMPARISON: Chest Single View dated 09/08/2021; Chest Single View dated 09/04/2021; Chest Single Vie w dated 08/29/2021; Chest Single View dated 08/29/2021 FINDINGS: Portable technique limits examination quality. The lungs are underinflated grossly clear. The heart is normal in size. No displaced fractures. IMPRESSION: Mildly underinflated lungs.
[2021-09-13 18:17] LABS: ALT/SGPT 25 U/L (12-78); AST/SGOT 17 U/L (15-37); Albumin 4.1 g/dL (3.4-5.0); Alkaline Phosphatase 76 U/L (45-117); BUN Blood Urea Nitrogen 12 mg/dL (7-18); Bicarbonate 25 mmol/L (21-32); Bilirubin Direct 0.1 mg/dL (0-0.2); Bilirubin Total 0.5 mg/dL (0.2-1.0); Glucose Level 102 mg/dL (74-106); Magnesium 2.5 mg/dL (1.8-2.4); NT PRO-BNP 23 pg/mL (<125); Sodium Level 146 mmol/L (136-145); Troponin (Emerg Dept Use Only) < 0.02 ng/mL (0.0-0.045)
[2021-09-13 19:20] LABS: Urine Blood Negative (Negative); Urine Glucose Negative (Negative); Urine Protein Negative (Negative); Urine Specific Gravity >=1.030 (1.005-1.030)
[2021-09-13 19:26] LABS: Urine Specific Gravity/Preg >1.030 (1.005-1.030)
[2021-09-13 19:49] LABS: Barbiturates NEGATIVE (NEGATIVE); Benzodiazepines NEGATIVE (NEGATIVE); Cocaine NEGATIVE (NEGATIVE); METHAMPHETAM POSITIVE (NEGATIVE); Methadone NEGATIVE (NEGATIVE); Opiates NEGATIVE (NEGATIVE); Phencyclidine NEGATIVE (NEGATIVE); THC Cannibis NEGATIVE (NEGATIVE)
--- NOTE | 2021-09-13 19:55 | EDPHYS ---
Physician Documentation [facility] Name: Tiffany Quinn Age: 51 yrs Sex: Female : 1970 Arrival Date: 09/13/2021 Time: 16:36 Bed 19 Private MD: ED Physician Manuel Ward HPI: 09/13 17:05 This 51 yrs old Female presents to ER via Ambulatory with complaints of Chest Pressure. cp 17:05 The patient or guardian reports chest pain that is located primarily in the anterior cp chest wall. 17:05 Onset: today. cp 17:05 The pain does not radiate. Associated signs and symptoms: Pertinent positives: nausea, cp Pertinent negatives: abdominal pain, lower extremity pain, lower extremity swelling, shortness of breath, syncope, vomiting. The chest pain is described as a pressure. Duration: The patient or guardian reports a single episode, that is still ongoing. Severity of pain: in the emergency department the pain is unchanged despite home interventions. Patient admits to using methamphetamine yesterday. 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 - Social history:: Smoking status: Patient denies any tobacco usage or history of. Patient uses street drugs, Methamphetamine (Meth). ROS: 17:10 Constitutional: Negative for body aches, chills, fever, poor PO intake. cp 17:10 Eyes: Negative for injury, pain, redness, and discharge. cp 17:10 ENT: Negative for ear pain, sore throat, difficulty swallowing, difficulty handling secretions. 17:10 Cardiovascular: Positive for chest pain, Negative for edema, palpitations. 17:10 Respiratory: Negative for cough, shortness of breath, wheezing. 17:10 Abdomen/GI: Positive for nausea, Negative for abdominal pain, vomiting, diarrhea, constipation. 17:10 Back: Negative for pain at rest, pain with movement. 17:10 Neuro: Negative for altered mental status, headache, numbness, weakness. 17:10 All other systems are negative. Exam: 17:15 Constitutional: The patient appears in no acute distress, alert, awake, cp non-diaphoretic, non-toxic, well developed, well nourished. 17:15 Head/Face: Normocephalic, atraumatic. cp 17:15 Eyes: Periorbital structures: appear normal, Pupils: constricted, bilaterally, Extraocular movements: intact throughout, Conjunctiva: normal, no exudate, no injection, Sclera: no appreciated abnormality, Lids and lashes: appear normal, bilaterally. 17:15 ENT: External ear(s): are unremarkable, Nose: is normal, Mouth: Lips: moist, Oral mucosa: moist, Posterior pharynx: Airway: no evidence of obstruction, patent. 17:15 Neck: ROM/movement: is normal, is supple, without pain, no range of motions limitations. 17:15 Chest/axilla: Inspection: normal, Palpation: is normal, no crepitus, no tenderness. 17:15 Cardiovascular: Rate: tachycardic, Rhythm: regular, Edema: is not appreciated, JVD: is not appreciated. 17:15 Respiratory: the patient does not display signs of respiratory distress, Respirations: normal, no use of accessory muscles, no retractions, labored breathing, is not present, Breath sounds: are clear throughout, no decreased breath sounds, no stridor, no wheezing. 17:15 Abdomen/GI: Inspection: abdomen appears normal, Palpation: abdomen is soft and non-tender, in all quadrants. 17:15 Back: pain, is absent, ROM is normal. 17:15 Neuro: Orientation: to person, place, situation, Mentation: able to follow commands, Motor: moves all fours, strength is normal. 17:20 ECG was reviewed by the Attending Physician. cp Vital Signs: 16:39 BP 121 / 89; Pulse 120; Resp 19; Temp 97.8; Pulse Ox 99% ; Weight 84.82 kg; Height 5 vg1 ft. 1 in. (154.94 cm); Pain 7/10; 17:00 BP 132 / 98; Pulse 113; Resp 18; Pulse Ox 100% on R/A; sl2 18:00 BP 136 / 102; Pulse 106; Resp 18; Pulse Ox 99% on R/A; sl2 18:30 BP 130 / 78; Pulse 103; Resp 18; Temp 98.2(O); Pulse Ox 100% on R/A; sl2 20:00 BP 130 / 78; Pulse 98; Resp 20 S; Temp 98.1(O); Pulse Ox 100% on R/A; cc4 16:39 Body Mass Index 35.33 (84.82 kg, 154.94 cm) vg1 MDM: 16:47 Patient medically screened. cp 19:54 Data reviewed: vital signs, nurses notes, lab test result(s), EKG, radiologic studies, cp plain films. 19:54 Differential diagnosis: abnormal EKG, acute myocardial infarction, acute pericarditis, cp anxiety, costochondritis, pneumonia, pneumothorax, pulmonary embolus, stable angina, unstable angina. Data interpreted: quality assurance monitor chassis: rhythm is normal sinus rhythm, Interpretation: normal rhythm, Pulse oximetry: on room air is 100 %. Interpretation: normal. Test interpretation: by ED physician or midlevel provider: ECG, plain radiologic studies. Counseling: I had a detailed discussion with the patient and/or guardian regarding: the historical points, exam findings, and any diagnostic results supporting the discharge/admit diagnosis, lab results, radiology results, to return to the emergency department if symptoms worsen or persist or if there are any questions or concerns that arise at home. Response to treatment: the patient's symptoms have markedly improved after treatment. 09/13 17: Order name: Basic Metabolic Panel; Complete Time: 19:18 cp 09/13 19:18 Interpretation: Normal except: NA 146; CL 110; GFR 60. cp 09/13 17: Order name: CBC with Diff; Complete Time: 19:18 cp 09/13 19:18 Interpretation: Normal except: WBC 9.50; PLT 524; MIRIAM% 74.1. cp 09/13 17:01 Order name: LFT's; Complete Time: 19:18 cp 09/13 17:01 Order name: Magnesium; Complete Time: 19:18 cp 09/13 17:01 Order name: NT PRO-BNP; Complete Time: 19:18 cp 09/13 17: Order name: PT-INR; Complete Time: 19:18 cp 09/13 17:01 Order name: Troponin (emerg Dept Use Only); Complete Time: 19:18 cp 09/13 19:18 Interpretation: TROPED < 0.02; Reviewed. cp 09/13 17:01 Order name: XRAY Chest (1 view); Complete Time: 19:18 cp 09/13 17:01 Order name: UDS; Complete Time: 19:53 cp 09/13 19:21 Order name: Urine Dipstick-Ancillary; Complete Time: 19:53 EDMS 09/13 19:22 Order name: Urine --Ancillary (enter results); Complete Time: 19:53 mw2 09/13 17:01 Order name: EKG; Complete Time: 17:01 cp 09/13 17:01 Order name: Cardiac monitoring; Complete Time: 18:00 cp 09/13 17:01 Order name: EKG - Nurse/Tech; Complete Time: 18:00 cp 09/13 17:01 Order name: IV Saline Lock; Complete Time: 18:00 cp 09/13 17:01 Order name: Labs collected and sent; Complete Time: 18:00 cp 09/13 17:01 Order name: O2 Per Protocol; Complete Time: 18:00 cp 09/13 17:01 Order name: O2 Sat Monitoring; Complete Time: 18:00 cp 09/13 17:01 Order name: Urine Dipstick-Ancillary (obtain specimen); Complete Time: 19:22 cp 09/13 17:01 Order name: Urine Test (obtain specimen); Complete Time: 19:22 cp EC:20 Rate is 111 beats/min. Rhythm is regular. CT interval is normal. QRS interval is cp normal. QT interval is normal. Interpreted by me. Reviewed by me. Administered Medications: 17:45 Drug: NS 0.9% 1000 ml Route: IV; Rate: 1 bolus; Site: left hand; sl2 18:30 Follow up: IV Status: Completed infusion; IV Intake: 100ml sl2 17:45 Drug: Zofran (Ondansetron) 4 mg Route: IVP; Site: left hand; sl2 18:10 Follow up: Response: No adverse reaction sl2 17:48 Drug: Ativan (LORazepam) 1 mg Route: IVP; Site: left hand; sl2 18:10 Follow up: Response: No adverse reaction sl2 Disposition: 20:00 Chart complete. cp 09/14 07:53 Co-signature as Attending Physician, Manule Ward MD I agree with the assessment and rn plan of care. Attestation: The patient's history, exam findings, diagnostics, and a summary of any interventions or procedures was reviewed in detail with Bill WHITTAKER. Disposition Summary: 09/13/21 19:54 Discharge Ordered Location: Home cp Problem: an ongoing problem cp Symptoms: have improved cp Condition: Stable cp Diagnosis - Adverse effect of amphetamines cp - Chest pain, unspecified cp Followup: cp - With: Private Physician - When: 1 - 2 days - Reason: Recheck today's complaints Discharge Instructions: - Discharge Summary Sheet cp - Nonspecific Chest Pain, Adult cp - Methamphetamines Use Disorder cp - Aspirin and Your Heart cp Forms: - Medication Reconciliation Form cp - Thank You Letter cp - Antibiotic Education cp - Prescription Opioid Use cp Signatures: Dispatcher [employer] EDMS Manuel Ward MD MD rn Page, Corey, PA PA cp Ibeth Charles RN RN vg1 Aleksandra Jimenez RN RN sl2 Corrections: (The following items were deleted from the chart) 14:25 09/13 17:10 Abdomen/GI: Negative for abdominal pain, nausea, vomiting, and diarrhea, cp constipation, cp
--- NOTE | 2021-09-13 19:55 | ER ---
Nurse's Notes [facility] Name: Tiffany Quinn Age: 51 yrs Sex: Female : 1970 Arrival Date: 09/13/2021 Time: 16:36 Bed 19 Private MD: Diagnosis: Adverse effect of amphetamines;Chest pain, unspecified Presentation: 09/13 16:39 Chief complaint: Patient states: "im just having chest pains and pressure" States is vg1 feeling nauseous and states 'im having a little bit of anxiety'. Coronavirus screen: Vaccine status: Patient reports receiving the 2nd dose of the covid vaccine. Client denies travel out of the [place] in the last 14 days. Ebola Screen: Patient negative for fever greater than or equal to 101.5 degrees Fahrenheit, and additional compatible Ebola Virus Disease symptoms. Initial Sepsis Screen: Does the patient meet any 2 criteria? No. Patient's initial sepsis screen is negative. Does the patient have a suspected source of infection? No. Patient's initial sepsis screen is negative. Risk Assessment: Do you want to hurt yourself or someone else? Patient reports no desire to harm self or others. Onset of symptoms was September 13, 2021. 16:39 Method Of Arrival: Ambulatory vg1 16:39 Acuity: MANUEL 3 vg1 Triage Assessment: 16:39 General: Appears in no apparent distress. uncomfortable, Behavior is cooperative, vg1 anxious. Pain: Complains of pain in chest Also complains of nausea. 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 - Social history:: Smoking status: Patient denies any tobacco usage or history of. Patient uses street drugs, Methamphetamine (Meth). Screenin:50 Abuse screen: Denies threats or abuse. Denies injuries from another. Nutritional sl2 screening: No deficits noted. Tuberculosis screening: No symptoms or risk factors identified. Fall Risk None identified. No fall in past 12 months (0 pts). No secondary diagnosis (0 pts). No IV (0 pts). Ambulatory Aid- None/Bed Rest/Nurse Assist (0 pts). Gait- Normal/Bed Rest/Wheelchair (0 pts) Mental Status- Oriented to own ability (0 pts). Total Ramirez Fall Scale indicates No Risk (0-24 pts). Assessment: 16:50 General: Appears uncomfortable, unkempt, well developed, Behavior is calm, cooperative. sl2 16:50 Pain: Complains of pain in chest Pain does not radiate. Pain currently is 2 out of 10 sl2 on a pain scale. Quality of pain is described as pressure, Pain began gradually, Is continuous, Alleviated by nothing. Neuro: No deficits noted. 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 Full function Gait is steady, Speech is normal, Facial symmetry appears normal. Cardiovascular: No deficits noted. Reports. Respiratory: No deficits noted. Airway is patent Trachea midline Respiratory effort is even, unlabored, Respiratory pattern is regular, symmetrical. GI: No deficits noted. No signs and/or symptoms were reported involving the gastrointestinal system. : No deficits noted. No signs and/or symptoms were reported regarding the genitourinary system. EENT: No deficits noted. No signs and/or symptoms were reported regarding the EENT system. Derm: No deficits noted. No signs and/or symptoms reported regarding the dermatologic system. Musculoskeletal: Reports pain in chest. 20:00 Reassessment: Patient appears in no apparent distress at this time. found in waiting cc4 area; asked to come back to ER 19 with compliance; saline lock removed left hand with no bleeding noted; voices no complaints. Patient states feeling better. Vital Signs: 16:39 BP 121 / 89; Pulse 120; Resp 19; Temp 97.8; Pulse Ox 99% ; Weight 84.82 kg; Height 5 vg1 ft. 1 in. (154.94 cm); Pain 7/10; 17:00 BP 132 / 98; Pulse 113; Resp 18; Pulse Ox 100% on R/A; sl2 18:00 BP 136 / 102; Pulse 106; Resp 18; Pulse Ox 99% on R/A; sl2 18:30 BP 130 / 78; Pulse 103; Resp 18; Temp 98.2(O); Pulse Ox 100% on R/A; sl2 20:00 BP 130 / 78; Pulse 98; Resp 20 S; Temp 98.1(O); Pulse Ox 100% on R/A; cc4 16:39 Body Mass Index 35.33 (84.82 kg, 154.94 cm) vg1 ED Course: 16:36 Patient arrived in ED. ds1 16:39 Arm band placed on. vg1 16:40 Bill Hay PA is PHCP. cp 16:40 Manuel Ward MD is Attending Physician. cp 16:41 Triage completed. vg1 17:45 Inserted saline lock: 22 gauge in left hand, using aseptic technique. Blood collected. sl2 17:58 Aleksandra Jimenez, RN is Primary Nurse. sl2 18:03 XRAY Chest (1 view) In Process Unspecified. EDMS 18:34 Patient has correct armband on for positive identification. Placed in gown. Bed in low sl2 position. Call light in reach. Side rails up X2. 18:34 No provider procedures requiring assistance completed. sl2 19:22 Warm blanket given. roaster helper on. Pulse ox on. NIBP on. 5 19:22 UDS Sent. 5 19:22 Urine collected: clean catch specimen, cloudy. 5 20:00 IV discontinued, intact, bleeding controlled, No redness/swelling at site. Pressure cc4 dressing applied. Administered Medications: 17:45 Drug: NS 0.9% 1000 ml Route: IV; Rate: 1 bolus; Site: left hand; sl2 18:30 Follow up: IV Status: Completed infusion; IV Intake: 100ml 2 17:45 Drug: Zofran (Ondansetron) 4 mg Route: IVP; Site: left hand; sl2 18:10 Follow up: Response: No adverse reaction sl2 17:48 Drug: Ativan (LORazepam) 1 mg Route: IVP; Site: left hand; sl2 18:10 Follow up: Response: No adverse reaction sl2 Intake: 18:30 IV: 100ml; Total: 100ml. sl2 Outcome: 19:54 Discharge ordered by . cp 20:00 Discharged to home ambulatory. cc4 20:00 Condition: improved 20:00 Discharge instructions given to patient, Instructed on discharge instructions, follow up and referral plans. Demonstrated understanding of instructions, follow-up care. 20:22 Patient left the ED. mr2 Signatures: Dispatcher [employer] EDNJ Neelima Rivera ds1 Bill Hay PA PA cp Martinez, Maria [facility] Ibeth Charles, RN RN vg1 Yelena Breen, RN RN cc4 Teddy Coleman, JIGNA RN mr2 Aleksandra Jimenez RN RN sl2 Corrections: (The following items were deleted from the chart) 16:44 16:39 Pulse 120bpm; Resp 19bpm; Pulse Ox 99%; Temp 97.8F; 84.82 kg; Height 5 ft. 1 in.; vg1 BMI: 35.3; Pain 7/10; vg1
[2021-09-13 20:35] VITALS: BP 130/78; TEMP 98.2; O2SAT 100
--- NOTE | 2021-09-17 08:16 | EKG ---
Test Date: 2021-09-13 Test Time: 17:14:59 Switchboard Inspector: GARDENIA MEASUREMENT RESULTS: Intervals: Rate: 111 [place]: 130 QRSD: 84 QT: 334 QTc: 454 [place]: P: 18 [place]: 130 QRS: -19 T: 45 INTERPRETIVE STATEMENTS: Sinus tachycardia RSR' or QR pattern in V1 suggests right ventricular conduction delay Possible Inferior infarct, age undetermined Abnormal ECG Compared to ECG 09/11/2021 20:39:55 Sinus rhythm no longer present Myocardial infarct finding still present Electronically Signed On 09-17-21 08:04:43 FIELD GAUGER by Tito Smiley
== END 2021-09-13 20:22 | disposition home or self-care (01) ==
LOC: ER 16:35
DX: R07.9 Chest pain, unspecified (principal); T43.625A Adverse effect of amphetamines, initial encounter; F31.9 Bipolar disorder, unspecified; Z98.82 Breast implant status; Z88.5 Allergy status to narcotic agent; Z88.8 Allergy status to other drugs, medicaments and biological substances
CPT/HCPCS: 96361; 93005; 85025; 80048; 36415; 83735; 81025; 85610; 80076; 81003; 84484; 83880; 80307; 71045; 96375; 96374; 99284; J7030; J2405

== ENCOUNTER 2021-09-14 13:45 | Emergency (ER) | payer OTHER ==
--- OUTSIDE RECORDS SUMMARY | 2021-09-14 13:53 | XMS REPORT | Continuity of Care Document ---
:1970 Author Organization [facility] t Address [address] [place] [address] Care Team Providers Name Role Phone UNKNOWN [...] Policy Number Effective Date Expiration Date S [facility] OF [place] - [id number] 2020 [place] 00:00:00 (MEDICARE REPLACEMENT/ADVANT AGE - HMO) Problems Condition Condition Condition Status Onset Resolution Last Treating Co mments Source Name Details Category Date Date Treatment Clinician Date LOW PB Diagnosis Active 2019-01-22 Mem oria 01-21 01:52:00 l LOW PB 00:00: Yonis 00 Active 01/21/2019 [place] INFECTIOUS Diagnosis Active 2019-02-06 Memoria GASTROENTE 01-21 08:58:00 l RITIS AND 00:00: [place] COLITIS INFECTIOUS 00 GASTROENTE RITIS AND COLITIS Active 01/21/2019 [facility] Irregular Irregular Disease Active Uni vers menstrual menstrual 8-15 ity of cycle cycle 00:00: [address] Skin Skin Disease Active Univers lesion lesion 8-15 ity of 00:00: [address] Psychiatri Psychiatri Disease Active U nivers c disorder c disorder 8-15 it y of 00:00: [address] Well woman Well woman Disease Active U nivers exam with exam with 8-15 ity of routine routine 00:00: [place] gynecologi gynecologi 00 Me dical nicky exam nicky exam Branch INFECTIOUS Diagnosis Active 2019-02-06 Memoria GASTROENTE 08:58:00 l RITIS AND Yonis COLITIS, INFECTIOUS GASTROENTE RITIS AND COLITIS, Active [facility] Allergies, Adverse Reactions, Alerts Allergy Allergy Status Severity Reaction(s) Onset Inactive Treating Comm ents Source Name Type Date Date Clinician NO KNOWN Drug Active Univers ALLERGIE Class ity of S [facility] Phenerga Phenerga Active [place] win[place] Social History Social Habit Start Date Stop Date Quantity Comments Source History of Cigarette Smoker Universi ty of tobacco use [facility] Tobacco Comment 2-3 cigs a day [facility] Exposure to Not sure [place] of SARS-CoV-2 [facility] (event) [place] Tobacco use and 2016-06-08 2016-06-08 [facility] 00:[facility]:00 00:00:00 [facility] Alcohol intake 2016-06-08 2016-06-08 0 /d University of 00:00:00 00:00:00 [facility] Sex Assigned At [birth year] Universit y of 00:00:00 00:00:00 [facility] Smoking Status Start Date Stop Date Source Social History 2019-01-22 05:00:12 [facility] Her urena Current some day smoker 2016-06-08 00:00:00 [facility] Medications Ordered Filled Start Stop Current Ordering Indication Dosage Frequency Signature Comments Components Source Medication Medication Date Date Medication? Clinician (SIG) Name Name cefTRIAXone 2020-10- No 1000mg 1,000 mg, Univers (ROCEPHIN) 17 11-17 IV ity of 1,000 mg in 08:30: 08:01 [place], [place] NaCl 0.9% 00 :00 ONCE, 1 [...] 09/09/21 at 2330, RANDA amoxicillin 2020-10 Yes [id number] 500mg Take 1 Univers 500 mg 11-10 capsule by ity of capsule 00:00: mouth 3 [place] 00 (three) Medical times Branch daily. ondansetron 2019-10- No 4mg 4 mg, [facility] ers (ZOFRAN-ODT 12-01 Oral, ity of ) 15:15: 14:16 ONCE, 1 [place] disintegrat 00 :00 dose, Mon Med ical ing tablet 09/30/20 at [facility] 4 mg 0915, Routine ondansetron 2019-10- No 4mg [address] mg, [facility] ers (ZOFRAN-ODT 12-01- Oral, ity of ) 14:30: 13:32 ONCE, 1 [place] disintegrat 00 :00 dose, Mon Med ical ing tablet 09/30/20 at [facility] nc 4 mg 0830, Routine ondansetron 2019-10 Yes [id number] 4mg Take 1 Univers 4 mg 2-07 tablet by ity of disintegrat 00:00: mouth [place] ing tablet 00 every 8 Medica l (eight) Branch hours as needed for Nausea and Vomiting (N/V). ondansetron 2019-10 Yes [id number] 4mg Take 1 Univers 4 mg 2-07 tablet by ity of disintegrat 00:00: mouth [place] ing tablet 00 every 8 Medica l (eight) Branch hours as needed for Nausea and Vomiting (N/V). ondansetron 2019-10 Yes [id number] 4mg Take 1 Univers 4 mg 2-07 tablet by ity of disintegrat 00:00: mouth [place] ing tablet 00 every 8 Medica l (eight) Branch hours as needed for Nausea and Vomiting (N/V). ondansetron 2019-10 Yes [id number] 4mg Take 1 Univers 4 mg 2-07 tablet by ity of disintegrat 00:00: mouth [place] ing tablet 00 every 8 Medica l (eight) Branch hours as needed for Nausea and Vomiting (N/V). ciprofloxac 2019 Yes 500 mg = 1 Memoria in 500 mg 4-04 tab, PO, l oral tablet 17:35: [id number], X Yonis 00 4 day, # 8 [...] 4-04 tab, PO, l oral tablet 17:35: [id number], X [place] 00 4 day, # 8 tab, 0 [...] s with feeding tube less than 14 [place] (Dobhoff, J-tube etc) and pediatric and patients. Potassium No Notes: Memori a Chloride 4-03 (Same as: l 13:26: K-Dur 20) [place] "Do Not Crush" Give with food and full glass of water For patients unable to swallow tablet, dissolve in one half glass of water. Allow about 2 minutes for the tablets to disintegra te. Stir before giving to prepare slurry and administer . Please exclude Patient s with feeding tube less than 14 [place] (Dobhoff, J-tube etc) and pediatric and patients. Strattera No 0.5 mg/kg, Me moria 01-24 Route: PO, l 14:00: QAM, Yonis Dosing Weight 75, kg, Start date: 01/24/19 9:00:00 CDT, Duration: 30 day, Stop date: 02/22/19 9:00:00 CDT Strattera 0 No 0.5 mg/kg, Me moria 402 Route: PO, l 14:00: QAM, [place] 00 Dosing Weight 75, kg, Start date: [...] Memoria 4- (Same as: l 15:00: Flagyl) [place] 00 Take with food/ avoid alcohol Cipro No Notes: February Memori a 4- interfere l 15:00: w/enteral [place] 00 feedings - Take 1 hr before [...] PO, ONCE, l mEq oral 14:20: 0 [place] tablet, 00 Refill(s) extended release Metronidazo No 500 mg, Mem oria le 500 MG 4-01 PO, l Oral Tablet 14:20: [id number], 0 [place] [Flagyl] 00 Refill(s) Ciprofloxac No 500 mg, Mem oria in 500 MG 01 PO, l Oral Tablet 14:20: [id number], 0 [place] [Cipro] 00 Refill(s) potassium Yes 40 mEq, Memor ia chloride 20 -01 PO, ONCE, l mEq oral 14:20: 0 [place] tablet, 00 Refill(s) extended release Metronidazo No 500 mg, Mem oria le 500 MG 4-01 PO, l Oral Tablet 14:20: [id number], 0 [place] [Flagyl] 00 Refill(s) Ciprofloxac No 500 mg, Mem oria in 500 MG 4-01 PO, l Oral Tablet 14:20: [id number], 0 [place] [Cipro] 00 Refill(s) Potassium No [...] s with feeding tube less than 14 [place] (Dobhoff, J-tube etc) and pediatric and patients. [...] s with feeding tube less than 14 [place] (Dobhoff, J-tube etc) and pediatric and patients. [...] tab, PO, l Tablet 21:08: BID, 0 [place] [Risperdal] 00 Refill(s) Strattera Yes 0.5 mg/kg, [...] tab, PO, l Tablet 21:08: BID, 0 [place] [Risperdal] 00 Refill(s) Zosyn No Notes: Memoria [...] oria 3-31 to exceed l 15:03: 400mg/day. [place] 00 (Same As: Ultram) Tramadol No Notes: [...] 01-22 Route: IM, l 09:47: Drug form: [place] 00 PDR/INJ, PRN, Dosing Weight 75.994, kg, [...] 01-22 Route: IM, l 09:47: Drug form: [place] PDR/INJ, PRN, Dosing Weight 75.994, kg, PRN Blood Glucose Results, Start date: 01/22/19 4:47:00 CDT, Duration: 30 day, Stop date: 02/21/19 4:46:00 CDT Dextrose 2018- No 12.5 gm, Memor ia 50% Syringe 3-31 25 mL, l 09:47: Route: [place] 00 IVP, Drug Form: INJ, Dosing Weight [...] moria IV 3-31 1,000 l 08:52: ml/hr, [place] 00 Infuse Over: 1 hr, Route: IV, [...] 0.9% 3-31 Same as: l 04:52: BD [place] Posiflush Sterile NS (Bolus) No 1,000 mL, Me moria IV 3-31 1,000 l 04:51: ml/hr, [place] 00 Infuse Over: 1 hr, Route: IV, 1,000, Drug form: INJ, ONCE, Priority: STAT, Dosing Weight 75.994 kg, Start date: 01/21/19 23:51:00 CDT, Stop date: 01/21/19 23:51:00 CDT NS (Bolus) No 1,000 mL, Me moria IV 01-22 1,000 l 04:51: ml/hr, [place] 00 Infuse Over: 1 hr, Route: IV, [...] HYDROBROMID 8-15 mouth. ity of E 19:02: [place] (CITALOPRAM 27 Medical ORAL) Branch ibuprofen 2016-0 Yes 200mg Take 200 Uni vers (ADVIL) 200 8-15 mg by ity of mg tablet 14:02: mouth [place] [address] every 6 Medical (six) Branch hours as needed. CLONAZEPAM 2016-0 Yes Take by Uni vers (KLONOPIN 8-15 mouth. ity of ORAL) 14:02: [address] Branch CITALOPRAM 2016-0 Yes Take by Uni vers HYDROBROMID 8-15 mouth. ity of E 14:02: [place] (CITALOPRAM 27 Medical ORAL) Branch ibuprofen 2016-0 Yes 200mg Take 200 Uni vers (ADVIL) 200 8-15 mg by ity of mg tablet 14:02: mouth [place] [address] every 6 Medical (six) Branch hours as needed. CLONAZEPAM 2016-0 Yes Take by Uni vers (KLONOPIN 8-15 mouth. ity of ORAL) 14:02: [address] Branch CITALOPRAM 2016-0 Yes Take by Uni vers HYDROBROMID 8-15 mouth. ity of E 14:02: [place] (CITALOPRAM 27 Medical ORAL) Branch ibuprofen 2016-0 Yes 200mg Take 200 Uni vers (ADVIL) 200 8-15 mg by ity of mg tablet 14:02: mouth [place] [address] every 6 Medical (six) Branch hours as needed. CLONAZEPAM 2016-0 Yes Take by Uni vers (KLONOPIN 8-15 mouth. ity of ORAL) 14:02: [place] [address] Medical Branch CITALOPRAM 2016-0 Yes Take by Uni vers HYDROBROMID 8-15 mouth. ity of E 14:02: [place] (CITALOPRAM 27 Medical ORAL) Branch misoprostol 2016-0 [...] H it y of en-caff 00:00: PRN. [place] (ESGIC) 00 Medical 50-325-40 Branch mg tablet butalbital- 2015-0 Yes TK 1 TO 2 U nivers acetaminoph 8-01 T PO Q 8 H it y of en-caff 00:00: PRN. [place] (ESGIC) 00 Medical 50-325-40 Branch mg tablet butalbital- 2015-0 Yes TK 1 TO 2 U nivers acetaminoph 8-01 T PO Q 8 H it y of en-caff 00:00: PRN. [place] (ESGIC) 00 Medical 50-325-40 Branch mg tablet butalbital- 2016-0 Yes TK 1 TO 2 U nivers acetaminoph 8-01 T PO Q 8 H it y of en-caff 00:00: PRN. [place] (ESGIC) 00 Medical 50-325-40 Branch mg tablet dextroamphe 0 Yes TK 1 T PO U nivers tamine-amph 7-20 BID. ity of etamine 00:00: [place] (ADDERALL) 00 Medical 20 mg Branch tablet dextroamphe Yes TK 1 T PO U nivers tamine-amph 7-20 BID. ity of etamine 00:00: [place] (ADDERALL) 00 Medical 20 mg Branch tablet dextroamphe Yes TK 1 T PO U nivers tamine-amph 7-20 BID. ity of etamine 00:00: [place] (ADDERALL) 00 Medical 20 mg Branch tablet [...] 2021-09-10 08:01:00 138 mm[Hg] Univer sity of [facility] Diastolic blood 2021-09-10 08:01:00 97 mm[Hg] Unive rsity of [facility] Heart rate 2021-09-10 08:01:00 87 /min [facility] Respiratory rate 2021-09-10 08:01:00 20 /min [facility] saturation in 2021-09-10 08:01:00 98 /min University of Arterial blood by [place] [email or web address] [facility] Pulse oximetry Branch Body temperature 2021-09-10 04:28:[address] [facility] Body height 2021-09-10 04:26:00 154.9 cm [facility] Body weight 2021-09-10 04:26:00 81.647 kg [facility] BMI 2021-09-10 04:26:00 34.01 kg/m2 [facility] Systolic blood 2021-09-09 20:06:00 150 mm[Hg] Univer sity of [facility] Diastolic blood 2021-09-09 20:06:00 89 mm[Hg] Unive rsity of [facility] Heart rate 2021-09-09 20:06:00 108 /min [facility] Body temperature 2021-09-09 20:06:[address] [facility] Respiratory rate 2021-09-09 20:06:00 18 /min [facility] Oxygen saturation in 2021-09-09 20:06:00 99 /min University of Arterial blood by [employer] nicky Pulse oximetry Branch Body weight 2021-09-09 20:05:00 81.647 kg Universi ty of [place] [facility] BMI 2021-09-09 20:05:00 32.40 kg/m2 Universi ty of [place] [facility] Systolic blood 2020-09-30 14:00:00 126 mm[Hg] Univer sity of pressure [place] [facility] Diastolic blood 2020-09-30 14:00:00 84 mm[Hg] Unive rsity of pressure [place] [facility] Heart rate 2020-09-30 14:00:00 79 /min Universi ty of [place] [facility] Oxygen saturation in 2020-09-30 14:00:00 98 /min University of Arterial blood by [facility] nicky Pulse oximetry Branch Body temperature 2020-09-30 13:26:00 37.22 Ruthann Univ ersity of [place] [facility] Respiratory rate 2020-09-30 13:26:00 16 /min Univ ersity of [place] [facility] Body weight 2020-09-30 13:26:00 72.576 kg Universi ty of [place] [facility] BMI 2020-09-30 13:26:00 28.80 kg/m2 Universi ty [facility] [place] [facility] Systolic blood 2020-09-30 14:00:00 126 mm[Hg] Univer sity of pressure [place] [facility] Diastolic blood 2020-09-30 14:00:00 84 mm[Hg] Unive rsity of pressure [place] [facility] Heart rate 2020-09-30 14:00:00 79 /min Universi ty of [place] [facility] Oxygen saturation in 2020-09-30 14:00:00 98 /min University of Arterial blood by [facility] nicky Pulse oximetry Branch Body temperature 2020-09-30 13:26:00 37.22 Ruthann Univ ersity of [place] [facility] Respiratory rate 2020-09-30 13:26:00 16 /min Univ ersity of [place] [facility] Body weight 2020-09-30 13:26:00 72.576 kg Universi ty [facility] [place] [facility] BMI 2020-09-30 13:26:00 28.80 kg/m2 Universi ty [facility] [place] [facility] Temperature Oral (F) 2019-01-28 01:16:00 98.6 F [facility] Yonis Systolic (mm Hg) 2019-01-28 01:16:00 Estrada rial [place] Diastolic (mm Hg) 2019-01-28 01:16:00 Mem orial [place] Heart Rate 2019-01-28 01:16:00 [facility] Respitory Rate 2019-01-28 01:16:00 Memori al [place] Systolic (mm Hg) 2019-01-27 20:42:00 Estrada rial [place] Diastolic (mm Hg) 2019-01-27 20:42:00 Mem orial Yonis Heart Rate 2019-01-27 20:42:00 [facility] [place] Respitory Rate 2019-01-27 20:42:00 Memori al [place] Temperature Oral (F) 2019-01-27 20:42:00 98.5 F [facility] [place] Systolic (mm Hg) 2019-01-27 17:00:00 Estrada rial Yonis Diastolic (mm Hg) 2019-01-27 17:00:00 Mem orial [place] Temperature Oral (F) 2019-01-27 17:00:00 98.5 F [facility] [place] Heart Rate 2019-01-27 17:00:00 [facility] [place] Respitory Rate 2019-01-27 [facility]:00 [facility] [place] Height 2019-01-22 14:35:00 157.48 cm [facility] BMI Calculated 2019-01-22 14:35:00 [facility] [place] Weight 2019-01-22 14:35:00 [facility] [place] Weight 2019-01-22 04:34:00 [facility] Procedure Date / Time Performing Clinician Source Performed URINALYSIS 2021-09-10 06:03:00 Neena Bradford [facility] URINE DRUG (IMMUNOASSAY) 2021-09-10 06:03:00 Neena Bradford [facility] SCREEN W/O REFLEX XR CHEST 1 VW 2021-09-10 04:57:30 Neena Bradford [facility] CREATINE KINASE 2021-09-10 04:39:00 Neena Bradford [facility] MAGNESIUM 2021-09-10 04:39:00 Neena Bradford [facility] TROPONIN I 2021-09-10 04:39:00 Neena Bradford [facility] COMP. METABOLIC PANEL 2021-09-10 04:39:00 Neena Bradford [facility] ([id number]) Medical [place] CBC WITH DIFF 2021-09-10 04:39:00 Neena Bradford [facility] PROTHROMBIN TIME / INR 2021-09-10 04:39:00 Neena Bradford [facility] ACTIVATED PARTIAL 2021-09-10 04:39:00 Neena Bradford [facility] PRO-BNP 2021-09-10 04:39:00 Neena Bradford [facility] COVID-19 (ID NOW RAPID 2021-09-10 04:39:00 Neena Bradford [facility] TESTING) Medical Branch TROPONIN I 2021-09-09 21:49:00 [facility] COMP. METABOLIC PANEL 2021-09-09 21:49:00 FayetteLuanne [facility] ([id number]) Medical Branch LITHIUM 2021-09-09 21:49:00 [facility] CBC WITH DIFF 2021-09-09 21:49:00 [facility] CONSENT/REFUSAL FOR 2021-09-09 19:51:22 Doctor Unassigned, No Un [facility] DIAGNOSIS AND TREATMENT Name Medical Branch URINALYSIS 2020-09-30 13:27:00 Jackson, [facility] ADC,CLC OR LCC ONLY - 2020-09-30 13:27:00 JacksonChuy aleman [facility] INFLUENZA A & B DIRECT Medical B ranch ANTIGEN COVID-19 (ID NOW RAPID 2020-09-30 13:27:00 JacksonChuy [facility] TESTING) Medical Branch Encounters Start End Encounter Admission Attending Care Care Encounter Source Date/Time Date/Time Type Type Clinicians Facility Department ID 2021-09-08 Outpatient Humaira-Mbayo VFP VFP [id number] [place] 02:24:16 _A_ [id number] Family Practic e 2021-09-07 Outpatient Humaira-Mbayo VFP VFP [id number] [place] 22:13:27 _A_AH [id number] Family Practic e 2021-09-07 Outpatient Humaira-Mbayo VFP VFP [id number] -[id number] [place] 13:23:42 _A_ [id number] Family Practic e 2021-09-06 Outpatient Humaira-Mbayo VFP VFP [id number] [facility] 04:23:58 _A_AH 39201 Family Practic e 2021-09-05 Outpatient Bernadine [facility] [id number] [facility] 19:22:48 _A_AH [id number] Family Practic e 2019-01-22 Inpatient E [facility] MED [id number] [facility] W 04:39:00 2021-09-09 2021-09-10 Emergency Sanchez [facility] [id number] Univers 22:20:00 03:02:00 Neena JIMENEZ [id number] i ty of [place] 4.2.7.2.686 [facility] [id number] [address] 2021-09-09 2021-09-10 Emergency X SANCHEZ [facility] ERT [id number] Univers 22:20:00 03:02:00 NEENA tubbs [facility] 2021-09-09 2021-09-10 Emergency X SANCHEZ [facility] ERT [id number] Univers 22:20:00 03:02:00 NEENA tubbs [facility] 2021-09-09 2021-09-09 Emergency Julia [facility] [id number] Univers 14:07:00 17:35:00 Luanne JIMENEZ [id number] i ty of [place] 4.2.7.2.686 [facility] [id number] [address] 2021-09-09 2021-09-09 Orders Doctor BELKYS [id number] Univers 00:00:00 00:00:00 Only Unassigned, LANA 350.1.13.10 ity of [place] [facility] 4.2.7.2.686 Joe [id number] [facility] 009 Branch 2020-09-30 2020-09-30 Chuy Jackson IASARAI [id number] Univers 07:22:00 08:18:00 Chuy Jimenez [id number] i ty of [place] 4.2.7.2.686 [facility] [id number] [facility] 084 Branch 2020-09-30 2020-09-30 Chuy Jackson IASARAI [id number] 07:22:00 08:18:00 Chuy Jimenez [id number] [place] 4.2.7.2.686 [place] [id number] 2020-09-30 2020-09-30 Emergency X SINGER [facility] ERT [id number] Univers 07:22:00 07:22:00 CHUY tubbs [facility] 2020-03-04 2020-03-14 Inpatient 3 Ronni Eldridge [facility] PSY [id number] 15:38:00 15:25:00 [facility] 2019-01-22 2019-01-28 Inpatient [facility] [id number] Memoria 04:33:00 04:40:00 r Yonis 00 l [facility] 2018-02-21 2018-02-20 Inpatient E [facility] [id number] 14:48:00 13:18:00 [facility] Results Test Description Test Time Test Comments Results Result Comments Source TROPONIN I 2021-09-10 05:26:53 Test Item Value Reference Range Interpretation Comme nts TROPONIN I (test code = 0.003 ng/mL See_Comment [Au tomated message] The [id number]) system which ge nerated this result tra [...] biotin. Lab Interpretation Normal (test code = 72525-1) [facility] [id number] 05:24:16 Test Item Value Reference Range Interpretation Comments NT-proBNP (test code 35 pg/mL See_Comment [Autom ated = 0505345922) message] The system which generated this result transmitted reference range : <=125. The reference range was not used to interpret this result as normal/abnormal . PERRY (test code = PERRY) Biotin has been reported to cause a negative bias, interpret results relative to patient's use of biotin. Lab Interpretation Normal (test code = 96806-6) [facility]2021-[facility]-17 05:16:51 Test Item Value Reference Range Interpretation Comments MAGNESIUM (test code = 9796624023) 1.8 mg/dL 1.7-2.4 Lab Interpretation (test code = Normal 08239-9) [facility]. METABOLIC PANEL ([id number])2021-09-10 05:16:31 Test Item Value Reference Range Interpretation Comments NA (test code = 139 mmol/L 135-145 2741743198) K (test code = 4.0 mmol/L 3.5-5.0 1315901337) CL (test code = 108 mmol/L 98-108 8316477152) CO2 TOTAL (test code 25 mmol/L 23-31 = 8684266680) AGAP (test code = 2-16 3105879313) BUN (test code = 14 mg/dL 7-23 9780147719) GLUCOSE (test code = 88 mg/dL 70-110 3825733096) CREATININE (test code 0.89 mg/dL 0.50-1.04 = 8923438586) TOTAL BILI (test code 0.5 mg/dL 0.1-1.1 = 9558082890) CALCIUM (test code = 10.3 mg/dL 8.6-10.6 0190542795) T PROTEIN (test code 6.9 g/dL 6.3-8.2 = 9080154892) ALBUMIN (test code = 4.3 g/dL 3.5-5.0 9272055294) ALK PHOS (test code = 72 U/L 34-122 2832975219) ALTv (test code = 17 U/L 5-35 1742-6) AST(SGOT) (test code 29 U/L 13-40 = 2183137140) eGFR (test code = mL/min/1.73m2 7606257974) PERRY (test code = PERRY) Association of [...] imaging tests). [facility] [id number] 05:16:16 Test Item Value Reference Range Interpretation Comments CK (test code = 4287271072) 267 U/L 33-194 H Lab Interpretation (test code = Abnormal 25756-1) [facility] PARTIAL THRMPLAS [id number] 05:05:32 Test Item Value Reference Range Interpretation [...] seconds. Lab Interpretation Normal (test code = 44253-1) [facility] TIME / [id number] 05:03:30 Test Item Value Reference Range Interpretation [...] tions. Lab Interpretation (test Normal code = 43017-9) [facility] WITH [id number] 04:57:13 Test Item Value Reference Range Interpretation Comments WBC (test code = See_Comment [Automated 1190-2) message] The sy stem which generated this [...] RDW-SD (test code = 41.2 fL 39.0-49.9 94067-1) RDW-CV (test code = 13.0 % 12.0-15.5 788-0) PLT (test code = See_Comment H [Automated 777-3) message] The sy stem which generated this result transmitted reference range : 166 - 358 10*3/ ?L. The reference r katie was not used to interpret this result as normal/abnormal . MPV (test code = 9.6 fL 9.5-12.9 17235-0) NRBC/100 WBC (test See_Comment [Automat ed code = 7562267140) message] The system which generated this result transmitted reference range : 0.0 - 10.0 /100 WBCs. The refer ence range was not u sed to interpret th is result as normal/abnormal . NRBC x10^3 (test code <0.01 See_Comment [Auto mated = 0104644960) message] The s ystem which generated this result transmitted reference range : 10*3/?L. The reference range was not used to interpret this result as normal/abnormal . GRAN MAT (NEUT) % 61.9 % (test code = 770-8) IMM GRAN % (test code 0.30 % = 8545805487) LYMPH % (test code = 26.0 % 736-9) MONO % (test code = 9.5 % 5905-5) EOS % (test code = 1.6 % 713-8) BASO % (test code = 0.7 % 706-2) GRAN MAT x10^3(ANC) 5.91 10*3/uL 1.88-7.09 (test code = 4749675029) IMM GRAN x10^3 (test 0.03 10*3/uL 0.00-0.06 code = 7435029496) LYMPH x10^3 (test code 2.48 10*3/uL 1.32-3.29 = 731-0) MONO x10^3 (test code 0.91 10*3/uL 0.33-0.92 = 742-7) EOS x10^3 (test code = 0.15 10*3/uL 0.03-0.39 711-2) BASO x10^3 (test code 0.07 10*3/uL 0.01-0.07 = 704-7) Lab Interpretation Abnormal (test code = 18766-9) [facility] [id number] 22:24:55 Test Item Value Reference Interpretation Comments Range TROPONIN I (test 0.002 ng/mL See_Comment [Automated code = 7595982610) message] The system which generated this result [...] biotin. Lab Interpretation Normal (test code = 05828-8) [facility] [facility] HospitalLITHIUM2021-11-16 22:24:34 Test Item Value Reference Range Interpretation Comments Lillie (test code = <0.2 0.6-1.2 L 3495732605) PERRY (test code = PERRY) Toxic Range: ? Greater than 1.2 mmol/L Lab Interpretation (test Abnormal code = 27603-9) [facility] METABOLIC PANEL (95783)2021-09-09 22:13:54 Test Item Value Reference Range Interpretation Comments NA (test code = 139 mmol/L 135-145 7855582323) K (test code = 4.0 mmol/L 3.5-5.0 4856439841) CL (test code = 105 mmol/L 98-108 1974275472) CO2 TOTAL (test code 26 mmol/L 23-31 = 4361391492) AGAP (test code = 2-16 0934233907) BUN (test code = 11 mg/dL 7-23 4876224673) GLUCOSE (test code = 109 mg/dL 70-110 6335011163) CREATININE (test code 0.71 mg/dL 0.50-1.04 = 5627223326) TOTAL BILI (test code 0.6 mg/dL 0.1-1.1 = 2532062543) CALCIUM (test code = 10.4 mg/dL 8.6-10.6 6338838485) T PROTEIN (test code 7.6 g/dL 6.3-8.2 = 3980334758) ALBUMIN (test code = 4.7 g/dL 3.5-5.0 9083782550) ALK PHOS (test code = 78 U/L 34-122 6031236134) ALTv (test code = 19 U/L 5-35 2-6) AST(SGOT) (test code 28 U/L 13-40 = 7520830602) eGFR (test code = mL/min/1.73m2 3057389099) PERRY (test code = PERRY) Association of [...] or urine or abnormalities in imaging tests). [facility] WITH THAO8627-97-24 22:03:32 Test Item Value Reference Range Interpretation Comments WBC (test code = See_Comment [Automated 5188-2) message] The sy stem which generated this [...] RDW-SD (test code = 40.2 fL 39.0-49.9 73183-4) RDW-CV (test code = 12.9 % 12.0-15.5 788-0) PLT (test code = See_Comment H [Automated 777-3) message] The sy stem which generated this result transmitted reference range : 166 - 358 10*3/ ?L. The reference r katie was not used to interpret this result as normal/abnormal . MPV (test code = 9.4 fL 9.5-12.9 L 81516-6) NRBC/100 WBC (test See_Comment [Automat ed code = 4770273394) message] The system which generated this result transmitted reference range : 0.0 - 10.0 /100 WBCs. The refer ence range was not u sed to interpret th is result as normal/abnormal . NRBC x10^3 (test code <0.01 See_Comment [Auto mated = 3935066804) message] The s ystem which generated this result transmitted reference range : 10*3/?L. The reference range was not used to interpret this result as normal/abnormal . GRAN MAT (NEUT) % 67.1 % (test code = 770-8) IMM GRAN % (test code 1.00 % = 4989005500) LYMPH % (test code = 21.4 % 736-9) MONO % (test code = 7.9 % 5905-5) EOS % (test code = 1.8 % 713-8) BASO % (test code = 0.8 % 706-2) GRAN MAT x10^3(ANC) 7.35 10*3/uL 1.88-7.09 H (test code = 6029203604) IMM GRAN x10^3 (test 0.11 10*3/uL 0.00-0.06 H code = 5338629010) LYMPH x10^3 (test code 2.34 10*3/uL 1.32-3.29 = 731-0) MONO x10^3 (test code 0.86 10*3/uL 0.33-0.92 = 742-7) EOS x10^3 (test code = 0.20 10*3/uL 0.03-0.39 711-2) BASO x10^3 (test code 0.09 10*3/uL 0.01-0.07 H = 704-7) Lab Interpretation Abnormal (test code = 21478-1) [facility],CLC OR L[facility] ONLY - INFLUENZA A & B DIRECT EXPBBOM0301-16-10 14:04:00 Test Item Value Reference Range Interpretation Comments Influenza A (test code = 73059-3) Negative Negative Influenza B (test code = 51256-3) Negative Negative Lab Interpretation (test code = Normal 47790-8) [facility]COVID-[facility] (ID NOW RAPID TESTING)2020-09-30 14:03:00 Test Item Value Reference Range Interpretation Comments SARS-CoV-2 Rapid ID NOW Not Detected Not Detected (test code = 12210-0) PERRY (test code = PERRY) ID NOW COVID-19 Assay is an isothermal nucleic acid amplification test intended for the qualitative detection of nucleic acid from SARS-CoV-2 viral RNA in nasopharyngeal ([employer]HW[employer]) specimens. It is used under Emergency Use [...] indicated. Lab Interpretation Normal (test code = 59589-7) [facility] HospitalURINALYSIS2020-12-07 13:55:00 Test Item Value Reference Range Interpretation Comments APPEARANCE (test code = Hazy Clear A 7499944591) COLOR (test code = Yellow Yellow 5369803242) PH (test code = 4.8-8.0 0684313586) SP GRAVITY (test code = 1.003-1.030 6445604597) GLU U QUAL (test code = Normal Normal 0840735991) BLOOD (test code = Negative Negative 0148019296) KETONES (test code = 5 mg/dL Negative A 7447046054) PROTEIN (test code = Negative Negative 2887-8) UROBILIN (test code = 2.0 mg/dL Normal A 8007156774) BILIRUBIN (test code = Negative Negative 6818125513) NITRITE (test code = Negative Negative 6009790718) LEUK ROZINA (test code = 25/uL Negative A 8951398023) RBC/HPF (test code = See_Comment [Autom ated message] 4863088784) The system [employer] generated this result transmit ngozi reference range : 0 - 3 HPF. The refe rence range was not u sed to interpret th is result as normal/abnormal . WBC/HPF (test code = See_Comment [Autom ated message] 6450015480) The system [employer] generated this result transmit ngozi reference range : 0 - 5 HPF. The refe rence range was not u sed to interpret th is result as normal/abnormal . BACTERIA (test code = Few Negative A 3373033944) MUCOUS (test code = Slight Negative LPF A 9912849150) SQ EPITH (test code = HPF 6586900708) Lab Interpretation (test Abnormal code = 47986-8) [facility] HospitalRPR Eqocaqtlypr7366-96-01 16:42:24 Test Item Value Reference Range Interpretation [...] = 10-24-2020 N Expiration Dt) Thyroid Stimulating Bkfzhuk7730-65-76 08:35:16 Test Item Value Reference Range Interpretation Comments TSH (test code = TSH) 1.170 mIU/mL 0.270-4.200 Lipid Ehqoo9779-22-50 08:21:19 Test Item Value Reference Range Interpretation Comments Cholesterol Total 254 mg/dL 0-200 H RISK OF HE ART (test code = DISEASEPublishe d by Cholesterol Total) [place] [employer] Cathie lyte Optimal Borderl ine [...] calculation is LDL/HDL Ratio=L DL Calc/HDL Chol BEOWAIEFRTQC7083-03-46 08:24:008.6[facility] KvhalkmNVEFCDQLAFYA1600-19-38 08:24:34918Lzdlbmnu OphpfaaAFUHKXZUQLUM9349-16-63 08:24:0027[facility] KULTDFCMIALJ5043-67-43 08:24:07599Pznwzzqh FhryuphXWOLEMBXEIRY8583-36-16 08:24:003.6[facility] MzaalqqLXXXXPILLOHX4257-47-98 08:24:000.70[facility] CNWSGETREHBD1623-25-38 08:24:008.4[facility] JbpgmbuGHTJHTMCDXJF6166-70-65 08:24:56657Clymyhvs SalkktqKOBXAMTNNQDV9976-90-49 08:24:0086[facility] VMHWCRGAYCAB0205-08-37 08:24:006[facility] UyjeaifFGGXXMLSTN5619-95-64 08:24:00 11.6[facility] RrxgqdySWRNFGQRIG9020-50-69 08:24:003.78[facility]annHEMATOLOGY 2019-01-26 08:24:0013.3[facility] BijabwcGUIKAQZJPK3704-25-26 08:24:0034.0[facility] FsfkjgcKBDMHHKAXV5619-06-88 08:24:006.3[facility] WzzqympJKLQFCYAFN6828-69-76 08:24:00 Test Item Value Reference Range Interpretation Comments MCH (test code = MCH) 30.7 pg 27.0-31.0 [facility] MailmggTGZDKQUXZG4783-52-94 08:24:0090.3[facility]annHEMATOLOGY 2019-01-26 08:24:0034.2[facility] QwsgdbyCSCPWJSHNN3927-41-30 08:24:66056Lswabnqf HwlllnqHHXLERAEVJ8610-76-50 08:24:007.5[facility] OzdeyauXTZLJCSSBIHW4646-31-19 08:24:008.6[facility] SoatuhgSDEWIEQVTGIE0045-57-25 08:24:64321Xbaxtltc Yonis LMQCBVHDJEYN3256-02-04 08:24:0027[facility] RkxfrorCLQQKVMGNZHS7621-00-48 08:24:00 139[facility] KiioedpMPSWEUARYBGN7813-34-66 08:24:003.6[facility] PLCRYAVGWNJQ2828-98-23 08:24:000.70[facility] VjilcusBSYTXVMLZHIX0276-69-16 08:24:008.4[facility] BpslnonHBWFWQHTDQLC4873-07-28 08:24:59662Ormvqzed Y[facility]is XVIZUHTEHNTV8703-85-06 08:24:0086[facility] FjpexyeABLNZKZCCVLF4870-56-14 08:24:00 6[facility] TshpcilSVAYMXJIJD1882-83-36 08:24:0011.6[facility]annHEMATOLOGY 2019-01-26 08:24:003.78[facility] BcdojwcSAMMISXSKL9923-22-20 08:24:0013.3[facility] PvylwxmTEAHBVEQSE2732-97-08 08:24:0034.0[facility] DvdixpwKYDHQQYFDA5183-32-70 08:24:006.3[facility] NhsvdlgYVSGDJOSTY7206-86-69 08:24:00 Test Item Value Reference Range Interpretation Comments MCH (test code = MCH) 30.7 pg 27.0-31.0 [facility] NdpgbrqMZALWWVZJB7321-06-52 08:24:0090.3[facility]annHEMATOLOGY 2019-01-26 08:24:0034.2[facility] LmhuqngHNMJYTOVNQ9347-23-76 08:24:54862Pycqhekj JlxoswnGFRBANKSIX4925-34-31 08:24:007.5[facility] HermannCHEM PWYZS8488-61-31 09:14:64899Nnbuoswy HermannCHEM QSWCA0150-30-24 09:14:008.5[facility]annCHEM FFYVV1360-67-47 09:14:0013.3[facility]annCHEM QFMGP3130-41-79 09:14:0024 [facility]annCHEM BQWXG9357-93-76 09:14:07459Bxtscetz HermannCHEM PANEL 2019-01-25 09:14:0081[facility]annCHEM EVMGZ3453-86-62 09:14:002[facility]annCHEM HGRZS7537-79-11 09:14:003.3[facility]annCHEM CHTNI6933-71-60 09:14:000.60[facility]annCHEM GYSHI7700-97-63 09:14:29396Xsowaefp HermannCHEM BFUWE5652-25-92 09:14:83596Spkimhbz HermannCHEM KSNRS5684-97-77 09:14:008.5 [facility]annCHE[facility] GMVIU7793-37-20 09:14:0013.3[facility]annCHEM PANEL 2019-01-25 09:14:0024[facility]annCHEM HXMBS8106-29-11 09:14:07612Pcsmvvtl HermannCHEM FCUDE6118-23-98 09:14:0081[facility]annCHEM CXECE6466-46-80 09:14:002[facility]annCHEM HIRSC9218-69-09 09:14:003.3[facility]annCHEM CCTPY7100-87-24 09:14:000.60[facility]annCHEM RMHOB8983-38-84 09:14:49505 [facility]annMOLECULAR JMPAURPKTR7588-96-79 16:22:00Negative (01/23/19 11:22 AM)[facility]annMOLECULAR KLGYIHCWLD1284-20-77 16:22:00Negative (01/23/19 11:22 AM)[facility]annCHEM QTPAA6916-95-72 15:42:002.76[facility]annCHEM PANEL 2019-01-23 15:42:002.76[facility]annCHEM SWVAF0832-68-46 12:32:000.9[facility]annCHEM BPLLY5975-87-79 12:32:000.9[facility]annCHEM HGCZY9953-73-27 10:50:002.0[facility]annCHEM HJJXM1265-90-51 10:50:89041Cxvgkret HermannCHEM VPSVE7860-33-04 10:50:0023[facility]annCHEM ZHUVR6759-94-88 10:50:75598 [facility]annCHEM BTZFF6910-24-15 10:50:003.1[facility]annCHEM PANEL 2019-01-23 10:50:93052Typxfxcz HermannCHEM OZTIU6501-63-82 10:50:005[facility]annCHEM WXDQU9487-33-76 10:50:000.50[facility]annCHEM GLNJN4082-06-49 10:50:007.8[facility]annCHEM YKMVX9139-14-41 10:50:0083[facility]annCHEM XBBND2451-82-55 10:50:0010.1[facility] JzacrozZXWQHCDFHG0895-26-82 10:50:000.2 [facility] NftbksyPEOCNHMMMQ6358-08-81 10:50:000.8[facility]annHEMATOLOGY 2019-01-23 10:50:005.5[facility] QdfcibpYMUEBEGGXV4006-76-21 10:50:002.2[facility] SyqifivQHFQRTSTKN8923-44-12 10:50:000.1[facility] EespstePLSWEQIGMC3706-84-07 10:50:0063.6[facility] XetkrcsOUDYABSIQB0717-15-23 10:50:008.9[facility] IHNXZOJDRP5533-33-81 10:50:002.3[facility] XvfxeybLEQJQKQJDY7246-14-09 10:50:00 Normal (01/23/19 5:50 AM)[facility] WywlsrkYILGFZPAHR5037-96-43 10:50:00Normal (01/23/19 5:50 AM)[facility] RwjcttrINWREAYMGQ4330-22-11 10:50:0025.1[facility] IldecebMENQPAGSBY2003-50-45 10:50:0013.1[facility] SqtlgubAOWPSEIODZ7147-31-12 10:50:29518Fyooevoc LgikxtjWWMBBSQWZA7881-81-79 10:50:007.7[facility] SVPSZUMGSL4190-20-79 10:50:008.6[facility] HztjkyoNGDANZKRVT2747-10-76 10:50:00 10.0[facility] ForxiwyNGZCNYVIMG6506-28-00 10:50:0034.[facility]annHEMATOLOGY 2019-01-23 10:50:0028.7[facility] QluvvktMWTHQOUSEO8879-01-68 10:50:0087.8[facility] TvhkjxzTRNAKVYRYF3155-19-95 10:50:00 Test Item Value Reference Range Interpretation Comments MCH (test code = MCH) 30.4 pg 27.0-31.0 [facility] PndftzbHNJXIWQYFP9756-61-67 10:50:003.27[facility]annHEMATOLOGY 2019-01-23 10:50:11877Qcbbydmx SwsxsbrLNFSIBUWHI5581-29-02 10:50:007.7[facility] MubxijgKKLFJJKKDM1369-50-52 10:50:008.[facility] LwsgwnwRWYDPOFMVR5655-83-41 10:50:0010.0[facility] WygnmsmADBOUGBGVF6880-67-00 10:50:0034.[facility] LQEGCCHMME2097-66-33 10:50:0028.7[facility] HjxviqcSGFVDJIONG7040-47-65 10:50:00 87.8[facility] RhuczqmZGGAZVKRHM4277-84-18 10:50:00 Test Item Value Reference Range Interpretation Comments MCH (test code = MCH) 30.4 pg 27.0-31.0 [facility]annCHEM ZDMGA4129-55-23 10:50:002.0[facility]annHEMATOLOGY 2019-01-23 10:50:003.27[facility]annCHEM EINDT1667-81-19 10:50:63803Oqapxbnw HermannCHEM QSWMD1117-83-80 10:50:0023[facility]annCHEM FXYVB4649-19-78 10:50:71966Zfvswllo [facility]annCHEM JWEIP5378-05-36 10:50:003.1[facility]annCHEM XZGBF0494-89-41 10:50:95717Jbtcspoi [facility]annCHEM MMQGS2440-40-01 10:50:005 [facility]annCHEM KHVTY2009-30-50 10:50:000.50[facility]annCHEM PANEL 2019-01-23 10:50:007.8[facility]annCHEM DSTQK3122-71-95 10:50:0083[facility]annCHEM BTDQM7584-84-83 10:50:0010.1[facility] YerlaimKBSHOXZISV5761-41-51 10:50:000.2[facility] UvlkzgkQXFRKLTCHU3249-05-22 10:50:000.8[facility] BRBDBLDFOB2767-55-31 10:50:005.5[facility] TpqtdycQJTIJSQIDE3358-80-89 10:50:002.2 [facility] WeilyuoQYBFBUSDKS6951-63-94 10:50:000.1[facility]annHEMATOLOGY 2019-01-23 10:50:0063.6[facility] VctscxxVGUUSSVODU9727-77-68 10:50:008.9[facility] XskibbyFZVFNSWJXC5271-47-70 10:50:002.3[facility] ImlwrwjMGLASPFITX7132-19-22 10:50:00Normal (01/23/19 5:50 AM)[facility] JooufpcKRODSIARHQ4736-16-62 10:50:00 Normal (01/23/19 5:50 AM)[facility] YrdfyehUZKSUYOYQI4653-02-88 10:50:0025.1[facility] JmyqwttNERSADBHGT1014-14-92 10:50:0013.1[facility] HermannCHEM UTNYA7473-67-73 11:32:002.4[facility]annCHEM LKYUE0781-42-89 11:32:002.4[facility]annCHEM MJJEW8075-12-24 09:04:003.0[facility]annCHEM HSFDW5104-98-81 09:04:003.0 [facility]UR[facility] AND ZTHVV1804-94-96 07:14:00 Test Item Value Reference Range Interpretation Comments UA Spec Grav (test code = UA Spec 1.014 1 Grav) [facility] TDBHW3792-42-13 07:14:00 Test Item Value Reference Range Interpretation Comments UA pH (test code = UA pH) 6.0 1 5.0-8.0 [facility] KFFSZ6051-65-84 07:14:00Negative (01/22/19 2:14 AM) [facility] PCYNN2186-96-02 07:14:00Negative *NA*(01/22/19 2:14 AM) [facility] VUTJV1451-53-48 07:14:00Negative *NA*(01/22/19 2:14 AM) [facility] WDSGM2243-56-65 07:14:00Negative *NA*(01/22/19 2:14 AM) [facility] KXAYR8816-30-19 07:14:00Negative (01/22/19 2:14 AM) [facility] KYWFV1373-80-86 07:14:00Negative (01/22/19 2:14 AM) [facility] KUYJE3441-91-90 07:14:00Negative (01/22/19 2:14 AM) [facility] KVZHO8270-43-80 07:14:00<1[facility] GRYEL3277-33-73 07:14:0025[facility] LDLAJ6107-84-58 07:14:002 [facility] CKJRE9936-33-03 07:14:00Light Yellow *NA*(01/22/19 2:14 AM)[facility] LQMSR5548-50-20 07:14:00Clear (01/22/19 2:14 AM) [facility] XKWYK0108-59-59 07:14:00 Test Item Value Reference Range Interpretation Comments UA Spec Grav (test code = UA Spec 1.014 1 Grav) [facility] FVCKA2662-16-73 07:14:00 Test Item Value Reference Range Interpretation Comments UA pH (test code = UA pH) 6.0 1 5.0-8.0 [facility] WPYKZ6790-67-97 07:14:00Negative (01/22/19 2:14 AM) [facility] NONZK7327-39-73 07:14:00Negative *NA*(01/22/19 2:14 AM) [facility] UBYRN1632-33-01 07:14:00Negative *NA*(01/22/19 2:14 AM) [facility] LXLFI7145-83-29 07:14:00Negative *NA*(01/22/19 2:14 AM) [facility] IOPUS5074-53-93 07:14:00Negative (01/22/19 2:14 AM) [facility] MLDMN3058-56-82 07:14:00Negative (01/22/19 2:14 AM) [facility] OUVAG0355-59-14 07:14:00Negative (01/22/19 2:14 AM) [facility] UEYET3084-07-11 07:14:00<1[facility] KCLUB4358-19-82 07:14:0025[facility] EIUDN7262-29-91 07:14:002 [facility] RYHZO1087-70-83 07:14:00Light Yellow *NA*(01/22/19 2:14 AM)[facility] CQTHI5855-75-54 07:14:00Clear (01/22/19 2:14 AM) [facility] CbanjfvNKRRT4345-77-34 05:16:000.90[facility] ZeqokdgBUAHS4932-04-61 05:16:000.90[facility] KxtvuadGJHFHGGIDQ7350-17-98 05:01:0013.6[facility] OGYUMCVWEI8599-22-70 05:01:22221Pstnssbr CdholnuQXGCBFDLGG0779-60-89 05:01:007.3 [facility] WzlllkbOLSGGYFJYG9519-57-00 05:01:0014.0[facility]annHEMATOLOGY 2019-01-22 05:01:004.85[facility] RgmbvwrVXLJSUJEJV0610-62-67 05:01:0042.7[facility] CgrkxnfFIOANVBXID3885-28-31 05:01:00 Test Item Value Reference Range Interpretation Comments MCH (test code = MCH) 29.0 pg 27.0-31.0 [facility] OkxdrmsOYYFFKTZPM8864-93-84 05:01:0088.2[facility]annHEMATOLOGY 2019-01-22 05:01:00 Test Item Value Reference Range Interpretation Comments INR (test code = INR) 0.96 1 0.85-1.17 [facility] CwwddkhITTSMNORPN1432-66-83 05:01:00 Test Item Value Reference Range Interpretation Comments PT (test code = PT) 12.6 s 12.0-14.7 [facility] KyglsweBHGECMTVJH0838-59-18 05:01:00 Test Item Value Reference Range Interpretation Comments PTT (test code = PTT) 25.9 s 22.9-35.8 [facility] LKRMGBA4361-80-77 05:01:00Negative (01/22/19 12:01 AM) [facility] HermannCARDIAC JZRQRAM0816-15-58 05:01:00<0.02[facility] CARDIAC KCDQBAW2061-91-46 05:01:0049[facility] HermannCHEM MGSQV3592-54-02 05:01:000.6[facility]annCHEM KVJTG4311-87-37 05:01:64595Snajmisa HermannCHEM WBRRR0297-60-33 05:01:004.0[facility]annCHEM ITFSR5959-75-12 05:01:0017 [facility]annCHE[facility] YQJVS6953-30-44 05:01:0025[facility]annCHEM PANEL 2019-01-22 05:01:008.1[facility]annCHEM OEQUH4799-41-77 05:01:00 Test Item Value Reference Range Interpretation Comments B/C Ratio (test code = B/C Ratio) 20 1 6-25 [facility]annCHE[facility] FVCFV1470-25-58 05:01:00 Test Item Value Reference Range Interpretation Comments A/G Ratio (test code = A/G Ratio) 1.0 1 0.7-1.6 [facility]annCHE[facility] YYBTF5329-87-08 05:01:004.1[facility]annCHEM PANEL 2019-01-22 05:01:006.90[facility] PuctvbwJKWLDLIXPAPPT3378-71-14 05:01:00Negative *NA*(01/22/19 12:01 AM)[facility] DncodkrLWPGMPYSKN1308-82-20 05:01:000.1[facility] WwmtwxjZGFCLKPSQF9782-11-73 05:01:000.7[facility] MjenzxfSRWOVPWOEQ5528-66-15 05:01:000.0[facility] StarfzhUHKFFTHMGG1458-28-92 05:01:000.0[facility] BHMRJDQPPW6373-32-94 05:01:000.9[facility] FostoruCDDLDLHTVA6876-73-96 05:01:008.6 [facility] OjlklygZHVMVDQRHT0530-62-95 05:01:000.6[facility]annHEMATOLOGY 2019-01-22 05:01:0086.5[facility] LqmiotpUPZZILXAQY6307-51-85 05:01:005.7[facility] LwfcsogTGTZQOJUIE3196-80-30 05:01:006.9[facility] PkpreonWZKCYJCUOQ2061-51-83 05:01:009.9[facility] BlujcodWZABGZYZUW8675-21-22 05:01:0032.8[facility] UXMVLWIUKB6925-68-39 05:01:0013.6[facility] TohtsajNNETPJPJIV9074-95-77 05:01:00 443[facility] OrbmshdJKBAWXPSJP7300-80-86 05:01:007.3[facility]annHEMATOLOGY 2019-01-22 05:01:0014.0[facility] PczdcnyVAPXEKYZUW3425-35-74 05:01:004.85[facility] TcuktgoSCFXYGZSWT8765-70-87 05:01:0042.7[facility] YkuhvwkGNQBROKFGL3731-41-19 05:01:00 Test Item Value Reference Range Interpretation Comments MCH (test code = MCH) 29.0 pg 27.0-31.0 [facility] CmmkfveGDSKRXHRMN8495-18-19 05:01:0088.2[facility]annHEMATOLOGY 2019-01-22 05:01:00 Test Item Value Reference Range Interpretation Comments INR (test code = INR) 0.96 1 0.85-1.17 [facility] PngrgldYYRJSYJKZL9324-07-27 05:01:00 Test Item Value Reference Range Interpretation Comments PT (test code = PT) 12.6 s 12.0-14.7 [facility]TujhktqGPYKVNPUBE1506-44-04 05:01:00 Test Item Value Reference Range Interpretation Comments PTT (test code = PTT) 25.9 s 22.9-35.8 [facility] NWFMLTM1706-17-29 05:01:00Negative (01/22/19 12:01 AM) [facility] HermannCARDIAC DHPHRAD7924-91-40 05:01:00<0.02[facility] CARDIAC KGLSHGK8420-25-76 05:01:0049[facility]annCHEM MBQES7016-17-68 05:01:000.6[facility]annCHEM INPHG8510-29-45 05:01:40791Tfojypxu HermannCHEM ORSOI0908-73-95 05:01:004.0[facility] HermannCHEM ZIPUU6651-76-54 05:01:0017 [facility]annCHEM OXVSV1752-27-94 05:01:0025[facility]annCHEM PANEL 2019-01-22 05:01:008.1[facility]annCHEM ZSBKT5821-01-08 05:01:00 Test Item Value Reference Range Interpretation Comments B/C Ratio (test code = B/C Ratio) 20 1 6-25 [facility]annCHE[facility] [id number] 05:01:00 Test Item Value Reference Range Interpretation Comments A/G Ratio (test code = A/G Ratio) 1.0 1 0.7-1.6 [facility] [id number] 05:01:004.1[facility]annCHE[facility] PANEL 2019-01-22 05:01:006.90[facility] UrnkwuqWAHROGOWSFGKB0570-37-78 05:01:00Negative *NA*(01/22/19 12:01 AM)[facility] TzmyadvTKVFOKPNKW2553-23-62 05:01:000.1[facility] AmcilwoVFYPYAWMUC1542-62-63 05:01:000.7[facility] WvqpihcNVCNNNPCJK9686-28-55 05:01:000.0[facility] DlhzwncDJLOTPVEQJ5851-43-97 05:01:000.0[facility] PHZKOJFXNV7092-31-23 05:01:000.9[facility] KvslwepFWOAKMLUVW5035-32-57 05:01:008.6 [facility] TdwsdauTIXGPPFLTI7664-99-26 05:01:000.6[facility]annHEMATOLOGY 2019-01-22 05:01:0086.5[facility] AtdkeufRJUDWQPSAP5097-14-82 05:01:005.7[facility] LbsuhytMNYGLMYAQC9874-99-69 05:01:006.9[facility] NesddnoBMBRYUFUTL9442-44-81 05:01:009.9[facility] XpcdfxwTQERCVRWKH3619-26-85 05:01:0032.8[facility] [id number] 14:36:00 Test Item Value Reference Range Interpretation [...] 0.00-0.01 N code = ETOHU) Comprehensive Metabolic Ysdjk9879-04-71 14:36:00 Test Item Value Reference Range Interpretation [...] is not provided , and the patient isAfchristianne-Amnazia can, multiply by 1.2 12. If sex [...] the [employer],http ://nkd ep.nih.gov Urinalysis [id number] 14:32:00 Test Item Value Reference Range Interpretation Comments Color (test code = COLOR) Yellow Yellow,Straw,Pl N yellow Clarity (test code = Clear Clear N CLAR) Specific [place] (test 1.024 1.001-1.035 N code = SPGR) [...] code = Few /HPF BACT) CBC with Vdhavxfwxltp1372-52-60 14:21:00 Test Item Value Reference Range Interpretation [...] code = ALYMPH) 3.0 K/cumm 0.5-4.6 N Costilla Abs (test code = AMONO) 0.5 K/cumm 0.0-1.2 N Eos Abs (test code = AEOS) 0.19 K/cumm 0.00-0.74 N Baso Abs (test code = ABASO) 0.1 K/cumm 0.00-0.21 N
--- NOTE | 2021-09-14 16:46 | ER ---
Nurse's Notes [facility] Name: Tiffany Quinn Age: 51 yrs Sex: Female : 1970 Arrival Date: 09/14/2021 Time: 13:48 Bed 14 Private MD: Diagnosis: Other stimulant abuse-Methamphetamine abuse Presentation: 09/14 14:25 Chief complaint: Patient states: "Im feel like having a stoke and it feels like im vg1 trying to confirm that im sitting in the chair and I dont ever give the wrong answer when answering questions." States "IM tring to get a job but know I appreciate you and I dont know what else to do, 1 for yes and 2 for no" Pt denies pain, states used Meth about an hour ago. Coronavirus screen: Vaccine status: Patient reports receiving the 2nd dose of the covid vaccine. Client denies travel out of the [place] in the last 14 days. Ebola Screen: Patient negative for fever greater than or equal to 101.5 degrees Fahrenheit, and additional compatible Ebola Virus Disease symptoms. Initial Sepsis Screen: Does the patient meet any 2 criteria? RR > 20 per min. Altered Mental Status. Yes Does the patient have a suspected source of infection? No. Patient's initial sepsis screen is negative. Risk Assessment: Do you want to hurt yourself or someone else? Patient reports no desire to harm self or others. Onset of symptoms was September 14, 2021. 14:25 Method Of Arrival: Ambulatory vg1 14:25 Acuity: MANUEL 2 vg1 Triage Assessment: 14:29 General: Appears in no apparent distress. uncomfortable, Behavior is anxious. Pain: vg1 Denies pain. Neuro: Level of Consciousness is awake, alert, obeys commands, confused, Oriented to person, place. Historical: - Allergies: 14:29 Haldol; vg1 14:29 Pepcid; vg1 14:29 Toradol; vg1 - Home Meds: 14:29 Atarax Oral [Active]; lithium carbonate 300 mg Oral tab 1 cap 3 times per day [Active]; vg1 Seroquel Oral [Active]; - PMHx: 14:29 Anxiety; Bipolar disorder; vg1 - PSHx: 14:29 breast augmentation; Cholecystectomy; hernia repair; vg1 - Immunization history:: Client reports receiving the 2nd dose of the Covid vaccine. - Social history:: Smoking status: Patient denies any tobacco usage or history of. Patient uses street drugs, Methamphetamine (Meth). Screenin:15 Abuse screen: Denies threats or abuse. Nutritional screening: No deficits noted. as6 Tuberculosis screening: No symptoms or risk factors identified. Fall Risk None identified. Assessment: 15:13 Reassessment: speech is rambling. General: Appears in no apparent distress. Behavior is as6 cooperative, restless. Pain: Denies pain. Neuro: Level of Consciousness is awake, alert, obeys commands, Oriented to person, place, situation. Cardiovascular: Capillary refill < 3 seconds Patient's skin is warm and dry. Respiratory: Airway is patent Trachea midline Respiratory effort is even, unlabored, Respiratory pattern is regular, symmetrical. Derm: Skin is intact, is healthy with good turgor. 17:00 Reassessment: Patient and/or family updated on plan of care and expected duration. Pain as6 level reassessed. Patient is alert, oriented x 3, equal unlabored respirations, skin warm/dry/pink. Vital Signs: 14:25 BP 154 / 136; Pulse 125; Resp 24; Temp 97.1; Pulse Ox 99% ; Weight 84.82 kg; Height 5 vg1 ft. 1 in. (154.94 cm); Pain 0/10; 15:16 BP 141 / 97; Pulse 105; Resp 20 S; Pulse Ox 98% on R/A; as6 16:00 BP 142 / 90; Pulse 101; Resp 22 S; Pulse Ox 95% on R/A; as6 16:58 BP 146 / 92; Pulse 98; Resp 20 S; Pulse Ox 97% on R/A; as6 14:25 Body Mass Index 35.33 (84.82 kg, 154.94 cm) vg1 ED Course: 13:48 Patient arrived in ED. ds1 14:29 Triage completed. vg1 14:29 Arm band placed on. vg1 14:32 Venkatesh Funez NP is PHCP. pm1 14:32 Manuel Ward MD is Attending Physician. pm1 14:35 Ebenezer Casanova RN is Primary Nurse. as6 15:15 Placed in gown. Bed in low position. Call light in reach. Side rails up X2. Pulse ox as6 on. NIBP on. 17:17 No provider procedures requiring assistance completed. Patient did not have IV access as6 during this emergency room visit. Administered Medications: No medications were administered Outcome: 16:45 Discharge ordered by . pm1 17:18 Discharged to home ambulatory. as6 17:18 Condition: stable 17:18 Discharge instructions given to patient, Instructed on discharge instructions, follow up and referral plans. Demonstrated understanding of instructions, follow-up care. 17:19 Patient left the ED. as6 Signatures: Neelima Rivera ds1 Venkatesh Funez NP CRUSHER SUPERVISOR pm1 Ibeht Charles, RN RN vg1 Ebenezer Casanova, JIGNA RN as6 Corrections: (The following items were deleted from the chart) 14:30 14:25 Chief complaint: Patient states: "Im feel like having a stoke and it feels like vg1 im trying to confirm that im sitting in the chair and I dont ever give the wrong answer when answering questions." States "IM tring to get a job but know I appreciate you and I dont know what else to do, 1 for yes and 2 for no" Pt denies pain vg1 14:31 14:25 Acuity: MANUEL 3 vg1 vg1
--- NOTE | 2021-09-14 16:46 | EDPHYS ---
Physician Documentation [facility] Name: Tiffany Quinn Age: 51 yrs Sex: Female : 1970 Arrival Date: 09/14/2021 Time: 13:48 Bed 14 Private MD: ED Physician Manuel Ward HPI: 09/14 14:36 This 51 yrs old Female presents to ER via Ambulatory with complaints of Pressure all pm1 over. 14:36 The patient presents to the emergency department with a history of substance abuse, pm1 Type: methamphetamines. Onset: The symptoms/episode began/occurred today. Past psychiatric history: Prior diagnosis: bipolar disorder, Psychiatric medications include: none. Associated signs and symptoms: Pertinent negatives: abdominal pain, chest pain, fever, nausea, shortness of breath, vomiting. Severity of symptoms: in the emergency department the symptoms are unchanged. The patient has experienced similar episodes in the past, multiple times, and the symptoms today are exactly the same, to previous abuse of methamphetamine in prior ER visits. The patient has been recently seen at the [facility] Emergency Department, yesterday, for similar complaints. Historical: - Allergies: 14:29 Haldol; vg1 14:29 Pepcid; vg1 14:29 Toradol; vg1 - Home Meds: 14:29 Atarax Oral [Active]; lithium carbonate 300 mg Oral tab 1 cap 3 times per day [Active]; vg1 Seroquel Oral [Active]; - PMHx: 14:29 Anxiety; Bipolar disorder; vg1 - PSHx: 14:29 breast augmentation; Cholecystectomy; hernia repair; vg1 - Immunization history:: Client reports receiving the 2nd dose of the Covid vaccine. - Social history:: Smoking status: Patient denies any tobacco usage or history of. Patient uses street drugs, Methamphetamine (Meth). ROS: 14:36 Constitutional: Negative for fever, chills, and weight loss, Cardiovascular: Negative pm1 for chest pain, palpitations, and edema, Respiratory: Negative for shortness of breath, cough, wheezing, and pleuritic chest pain, Abdomen/GI: Negative for abdominal pain, nausea, vomiting, diarrhea, and constipation, Back: Negative for injury and pain, MS/Extremity: Negative for injury and deformity, Skin: Negative for injury, rash, and discoloration, Neuro: Negative for headache, weakness, numbness, tingling, and seizure. 14:36 All other systems are negative. Exam: 14:36 Constitutional: This is a well developed, well nourished patient who is awake, alert, pm1 and in no acute distress. Head/Face: Normocephalic, atraumatic. 14:36 Back: No spinal tenderness. No costovertebral tenderness. Full range of motion. Skin: Warm, dry with normal turgor. Normal color with no rashes, no lesions, and no evidence of cellulitis. MS/ Extremity: Pulses equal, no cyanosis. Neurovascular intact. Full, normal range of motion. 14:36 Cardiovascular: Exam negative for acute changes, Rate: tachycardic, Rhythm: regular, Pulses: no pulse deficits are appreciated, Heart sounds: normal, normal S1and S2, Edema: is not appreciated. 14:36 Respiratory: Exam negative for acute changes, respiratory distress, shortness of breath, Breath sounds: are clear throughout. 14:36 Abdomen/GI: Exam negative for acute changes, Inspection: abdomen appears normal, Palpation: abdomen is soft and non-tender, in all quadrants. 14:36 Neuro: Exam negative for acute changes, Orientation: is normal, Mentation: is normal, Motor: is normal, moves all fours, Gait: is steady, at a normal pace. 14:36 Psych: Behavior/mood is cooperative, Affect is animated, Oriented to person, place, time, Judgement / Insight is impaired. by recent drug abuse. Vital Signs: 14:25 BP 154 / 136; Pulse 125; Resp 24; Temp 97.1; Pulse Ox 99% ; Weight 84.82 kg; Height 5 vg1 ft. 1 in. (154.94 cm); Pain 0/10; 15:16 BP 141 / 97; Pulse 105; Resp 20 S; Pulse Ox 98% on R/A; as6 16:00 BP 142 / 90; Pulse 101; Resp 22 S; Pulse Ox 95% on R/A; as6 16:58 BP 146 / 92; Pulse 98; Resp 20 S; Pulse Ox 97% on R/A; as6 14:25 Body Mass Index 35.33 (84.82 kg, 154.94 cm) vg1 MDM: 14:36 Patient medically screened. pm1 16:43 Data reviewed: vital signs. Data interpreted: Pulse oximetry: on room air is 95 %. pm1 Interpretation: normal. Counseling: I had a detailed discussion with the patient and/or guardian regarding: the historical points, exam findings, and any diagnostic results supporting the discharge/admit diagnosis, the need for outpatient follow up, to return to the emergency department if symptoms worsen or persist or if there are any questions or concerns that arise at home, Discussed methamphetamine cessation. Administered Medications: No medications were administered Disposition: 17:45 Co-signature as Attending Physician, Manuel Ward MD I agree with the assessment and rn plan of care. Attestation: The patient's history, exam findings, diagnostics, and a summary of any interventions or procedures was reviewed in detail with Venkatesh Funez NP. Disposition Summary: 09/14/21 16:45 Discharge Ordered Location: Home pm1 Problem: new pm1 Symptoms: have improved pm1 Condition: Stable pm1 Diagnosis - Other stimulant abuse - Methamphetamine abuse pm1 Followup: pm1 - With: Emergency Department - When: As needed - Reason: Worsening of condition Followup: pm1 - With: Private Physician - When: 2 - 3 days - Reason: Recheck today's complaints, Continuance of care, Re-evaluation by your physician Discharge Instructions: - Discharge Summary Sheet pm1 - Methamphetamines Use Disorder pm1 Forms: - Medication Reconciliation Form pm1 - Thank You Letter pm1 - Antibiotic Education pm1 - Prescription Opioid Use pm1 Signatures: Manuel Ward MD MD rn Marinas, Patrick, NP CIVIL STRUCTURAL ENGINEER pm1 Ibeth Charles RN RN vg1
[2021-09-14 17:29] VITALS: TEMP 97.1
[2021-09-14 17:33] VITALS: BP 146/92; O2SAT 97
== END 2021-09-14 17:19 | disposition home or self-care (01) ==
LOC: ER 13:45
DX: R07.89 Other chest pain (principal); F15.10 Other stimulant abuse, uncomplicated; F31.9 Bipolar disorder, unspecified; Z98.82 Breast implant status; Z88.5 Allergy status to narcotic agent; Z88.8 Allergy status to other drugs, medicaments and biological substances
CPT/HCPCS: 99283

== ENCOUNTER 2021-09-14 19:22 | Emergency (ER) | payer OTHER ==
--- OUTSIDE RECORDS SUMMARY | 2021-09-14 19:32 | XMS REPORT | Continuity of Care Document ---
:[address] [facility] t Address [address] [place] [address] Care Team Providers Name Role Phone UNKNOWN [...] Policy Number Effective Date Expiration Date S [facility] OF [place] - [id number] 2020 [employer] 00:00:00 (MEDICARE REPLACEMENT/ADVANT AGE - HMO) Problems Condition Condition Condition Status Onset Resolution Last Treating Co mments Source Name Details Category Date Date Treatment Clinician Date LOW PB Diagnosis Active 2019-01-22 Mem oria 01-21 01:52:00 l LOW PB 00:00: Yonis 00 Active 01/21/2019 [facility] INFECTIOUS Diagnosis Active 2019-02-06 Memoria GASTROENTE 01-21 08:58:00 l RITIS AND 00:00: [place] COLITIS INFECTIOUS 00 GASTROENTE RITIS AND COLITIS Active 01/21/2019 [facility] Irregular Irregular Disease Active Uni vers menstrual menstrual 8-15 ity of cycle cycle 00:00: [address] Skin Skin Disease Active Univers lesion lesion 8-15 ity of 00:00: [address] Psychiatri Psychiatri Disease Active U nivers c disorder c disorder 8-15 it y of 00:00: [address] Well woman Well woman Disease Active U nivers exam with exam with 8-15 ity of routine routine 00:00: [place] gynecologi gynecologi 00 Me dical nicky exam nicky exam Branch INFECTIOUS Diagnosis Active 2019-02-06 Memoria GASTROENTE 08:58:00 l RITIS AND Yonis COLITIS, INFECTIOUS GASTROENTE RITIS AND COLITIS, Active [facility] Allergies, Adverse Reactions, Alerts Allergy Allergy Status Severity Reaction(s) Onset Inactive Treating Comm ents Source Name Type Date Date Clinician NO KNOWN Drug Active Univers ALLERGIE Class ity of S [facility] Phenerga Phenerga Active [place] winifred [place] Social History Social Habit Start Date Stop Date Quantity Comments Source History of Cigarette Smoker Universi ty of tobacco use [facility] Tobacco Comment 2-3 cigs a day [facility] Exposure to Not sure Im[place] of SARS-CoV-[address] [facility] (event) [place] Tobacco use and 2016-06-08 2016-06-08 Never used [facility] Austinit y of exposure 00:00:00 00:00:00 [facility] Alcohol intake 2016-06-08 2016-06-08 0 /d University of 00:00:00 00:00:00 [facility] Sex Assigned At [birth year] Universit y of 00:00:00 00:00:00 [facility] Smoking Status Start Date Stop Date Source Social History 2019-01-22 05:00:12 [facility] Her urena Current some day smoker 2016-06-08 00:00:00 [facility] Medications Ordered Filled Start Stop Current Ordering Indication Dosage Frequency Signature Comments Components Source Medication Medication Date Date Medication? Clinician (SIG) Name Name cefTRIAXone 2020-10- No 1000mg 1,000 mg, Univers (ROCEPHIN) 17 11-17 IV ity of 1,000 mg in 08:30: 08:01 [place], [place] NaCl 0.9% 00 :00 ONCE, 1 [...] 09/09/21 at 2330, RANDA amoxicillin 2020-10 Yes [id number] 500mg Take 1 Univers 500 mg 11-10 capsule by ity of capsule 00:00: mouth 3 [place] 00 (three) Medical times Branch daily. ondansetron 2019-10- No 4mg 4 mg, [facility] ers (ZOFRAN-ODT 12-01 Oral, ity of ) 15:15: 14:16 ONCE, 1 [place] disintegrat 00 :00 dose, Mon Med ical ing tablet 09/30/20 at [facility] 4 mg 0915, Routine ondansetron 2019-10- No 4mg 4 mg, [facility] (ZOFRAN-ODT 12-01- Oral, ity of ) 14:30: 13:32 ONCE, 1 [place] disintegrat 00 :00 dose, Mon Med ical ing tablet 09/30/20 at [facility] [place] 4 mg 0830, Routine ondansetron 2019-10 Yes [id number] 4mg Take 1 Univers 4 mg 2-07 tablet by ity of disintegrat 00:00: mouth [place] ing tablet 00 every 8 Medica l (eight) Branch hours as needed for Nausea and Vomiting (N/V). ondansetron 2019-10 Yes [id number] 4mg Take 1 Univers 4 mg 2-07 tablet by ity of disintegrat 00:00: mouth [place] ing tablet 00 every 8 Medica l (eight) Branch hours as needed for Nausea and Vomiting (N/V). ondansetron 2019-10 Yes [id number] 4mg Take 1 Univers 4 mg 2-07 tablet by ity of disintegrat 00:00: mouth [place] ing tablet 00 every 8 Medica l (eight) Branch hours as needed for Nausea and Vomiting (N/V). ondansetron 2019-10 Yes [id number] 4mg Take 1 Univers 4 mg 2-07 tablet by ity of disintegrat 00:00: mouth [place] ing tablet 00 every 8 Medica l (eight) Branch hours as needed for Nausea and Vomiting (N/V). ciprofloxac 2019 Yes 500 mg = 1 Memoria in 500 mg 4-04 tab, PO, l oral tablet 17:35: [id number], X Yonis 00 4 day, # 8 [...] 4-04 tab, PO, l oral tablet 17:35: [id number], X [place] 00 4 day, # 8 tab, 0 [...] s with feeding tube less than 14 [place]ian (Dobhoff, J-tube etc) and pediatric and patients. Potassium No Notes: Memori a Chloride 4-03 (Same as: l 13:26: K-Dur 20) [place] "Do Not Crush" Give with food and full glass of water For patients unable to swallow tablet, dissolve in one half glass of water. Allow about 2 minutes for the tablets to disintegra te. Stir before giving to prepare slurry and administer . Please exclude Patient s with feeding tube less than 14 [place] (Dobhoff, J-tube etc) and pediatric and patients. Strattera No 0.5 mg/kg, Me moria 01-24 Route: PO, l 14:00: QAM, Yonis Dosing Weight 75, kg, Start date: 01/24/19 9:00:00 CDT, Duration: 30 day, Stop date: 02/22/19 9:00:00 CDT Strattera 0 No 0.5 mg/kg, Me moria 402 Route: PO, l 14:00: QAM, [place] 00 Dosing Weight 75, kg, Start date: [...] Memoria 4- (Same as: l 15:00: Flagyl) [place] 00 Take with food/ avoid alcohol Cipro No Notes: February Memori a 4- interfere l 15:00: w/enteral [place] 00 feedings - Take 1 hr before [...] PO, ONCE, l mEq oral 14:20: 0 [place] tablet, 00 Refill(s) extended release Metronidazo No 500 mg, Mem oria le 500 MG 4-01 PO, l Oral Tablet 14:20: [id number], 0 [place] [Flagyl] 00 Refill(s) Ciprofloxac No 500 mg, Mem oria in 500 MG 01 PO, l Oral Tablet 14:20: [id number], 0 [place] [Cipro] 00 Refill(s) potassium Yes 40 mEq, Memor ia chloride 20 -01 PO, ONCE, l mEq oral 14:20: 0 [place] tablet, 00 Refill(s) extended release Metronidazo No 500 mg, Mem oria le 500 MG 4-01 PO, l Oral Tablet 14:20: [id number], 0 H [place] [Flagyl] 00 Refill(s) Ciprofloxac No 500 mg, Mem oria in 500 MG 4-01 PO, l Oral Tablet 14:20: [id number], 0 Yon[place] [Cipro] 00 Refill(s) Potassium No [...] s with feeding tube less than 14 [place] (Dobhoff, J-tube etc) and pediatric and patients. [...] s with feeding tube less than 14 [place] (Dobhoff, J-tube etc) and pediatric and patients. [...] tab, PO, l Tablet 21:08: BID, 0 [place] [Risperdal] 00 Refill(s) Strattera Yes 0.5 mg/kg, [...] tab, PO, l Tablet 21:08: BID, 0 [place] [Risperdal] 00 Refill(s) Zosyn No Notes: Memoria [...] oria 3-31 to exceed l 15:03: 400mg/day. [place] 00 (Same As: Ultram) Tramadol No Notes: [...] 01-22 Route: IM, l 09:47: Drug form: [place] 00 PDR/INJ, PRN, Dosing Weight 75.994, kg, [...] Estrada doni 3-31 (Same as: l 09:47: uKrtis) Yonis MEDICATION WASTE Product Size: 4 mg Product Wasted: ___ mg Glucagon 2019-0 No 1 mg, Memoria 01-22 Route: IM, l 09:47: Drug form: [place] PDR/INJ, PRN, Dosing Weight 75.994, kg, PRN Blood Glucose Results, Start date: 01/22/19 4:47:00 CDT, Duration: 30 day, Stop date: 02/21/19 4:46:00 CDT Dextrose 2018- No 12.5 gm, Memor ia 50% Syringe 3-31 25 mL, l 09:47: Route: [place] 00 IVP, Drug Form: INJ, Dosing Weight [...] moria IV 3-31 1,000 l 08:52: ml/hr, [place] 00 Infuse Over: 1 hr, Route: IV, [...] 0.9% 3-31 Same as: l 04:52: BD [place] Posiflush Sterile NS (Bolus) No 1,000 mL, Me moria IV 3-31 1,000 l 04:51: ml/hr, [place] 00 Infuse Over: 1 hr, Route: IV, 1,000, Drug form: INJ, ONCE, Priority: STAT, Dosing Weight 75.994 kg, Start date: 01/21/19 23:51:00 CDT, Stop date: 01/21/19 23:51:00 CDT NS (Bolus) No 1,000 mL, Me moria IV 01-22 1,000 l 04:51: ml/hr, [place] 00 Infuse Over: 1 hr, Route: IV, [...] HYDROBROMID 8-15 mouth. ity of E 19:02: [place] (CITALOPRAM 27 Medical ORAL) Branch ibuprofen 2016-0 Yes 200mg Take 200 Uni vers (ADVIL) 200 8-15 mg by ity of mg tablet 14:02: mouth [place] [address] every 6 Medical (six) Branch hours as needed. CLONAZEPAM 2016-0 Yes Take by Uni vers (KLONOPIN 8-15 mouth. ity of ORAL) 14:02: [address] Branch CITALOPRAM 2016-0 Yes Take by Uni vers HYDROBROMID 8-15 mouth. ity of E 14:02: [place] (CITALOPRAM 27 Medical ORAL) Branch ibuprofen 2016-0 Yes 200mg Take 200 Uni vers (ADVIL) 200 8-15 mg by ity of mg tablet 14:02: mouth [place] [address] every 6 Medical (six) Branch hours as needed. CLONAZEPAM 2016-0 Yes Take by Uni vers (KLONOPIN 8-15 mouth. ity of ORAL) 14:02: [address] Branch CITALOPRAM 2016-0 Yes Take by Uni vers HYDROBROMID 8-15 mouth. ity of E 14:02: [place] (CITALOPRAM 27 Medical ORAL) Branch ibuprofen 2016-0 Yes 200mg Take 200 Uni vers (ADVIL) 200 8-15 mg by ity of mg tablet 14:02: mouth [place] [address] every 6 Medical (six) Branch hours as needed. CLONAZEPAM 2016-0 Yes Take by Uni vers (KLONOPIN 8-15 mouth. ity of ORAL) 14:02: [place] [address] Medical Branch CITALOPRAM 2016-0 Yes Take by Uni vers HYDROBROMID 8-15 mouth. ity of E 14:02: [place] (CITALOPRAM 27 Medical ORAL) Branch misoprostol 2016-0 [...] H it y of en-caff 00:00: PRN. [place] (ESGIC) 00 Medical 50-325-40 Branch mg tablet butalbital- 2015-0 Yes TK 1 TO 2 U nivers acetaminoph 8-01 T PO Q 8 H it y of en-caff 00:00: PRN. [place] (ESGIC) 00 Medical 50-325-40 Branch mg tablet butalbital- 2015-0 Yes TK 1 TO 2 U nivers acetaminoph 8-01 T PO Q 8 H it y of en-caff 00:00: PRN. [place] (ESGIC) 00 Medical 50-325-40 Branch mg tablet butalbital- 2016-0 Yes TK 1 TO 2 U nivers acetaminoph 8-01 T PO Q 8 H it y of en-caff 00:00: PRN. [place] (ESGIC) 00 Medical 50-325-40 Branch mg tablet dextroamphe 0 Yes TK 1 T PO U nivers tamine-amph 7-20 BID. ity of etamine 00:00: [place] (ADDERALL) 00 Medical 20 mg Branch tablet dextroamphe Yes TK 1 T PO U nivers tamine-amph 7-20 BID. ity of etamine 00:00: [place] (ADDERALL) 00 Medical 20 mg Branch tablet dextroamphe Yes TK 1 T PO U nivers tamine-amph 7-20 BID. ity of etamine 00:00: [place] (ADDERALL) 00 Medical 20 mg Branch tablet [...] 2021-09-10 08:01:00 138 mm[Hg] Univer sity of [facility] Diastolic blood 2021-09-10 08:01:00 97 mm[Hg] Unive rsity of [facility] Heart rate 2021-09-10 08:01:00 87 /min [facility] Respiratory rate 2021-09-10 08:01:00 20 /min [facility] Oxygen saturation in 2021-09-10 08:01:00 98 /min University of Arterial blood by [place] [facility] Pulse oximetry Branch Body temperature 2021-09-10 04:28:51 37.17 Ruthann [facility] Body height 2021-09-10 04:26:00 154.9 cm [facility] Body weight 2021-09-10 04:26:00 81.647 kg [facility] BMI 2021-09-10 04:26:00 34.01 kg/m2 [facility] Systolic blood 2021-09-09 20:06:00 150 mm[Hg] Univer sity of [facility] Diastolic blood 2021-09-09 20:06:00 89 mm[Hg] Unive rsity of [facility] Heart rate 2021-09-09 20:06:00 108 /min [facility] Body temperature 2021-09-09 20:06:00 37.22 Ruthann [facility] Respiratory rate 2021-09-09 20:06:00 18 /min [facility] Oxygen saturation in 2021-09-09 20:06:00 99 /min University of Arterial blood by [employer] nicky Pulse oximetry Branch Body weight 2021-09-09 20:05:00 81.647 kg Universi ty of [place] [facility] BMI 2021-09-09 20:05:00 32.40 kg/m2 Universi ty [facility] [place] [facility] Systolic blood 2020-09-30 14:00:00 126 mm[Hg] Univer sity of pressure [place] [facility] Diastolic blood 2020-09-30 14:00:00 84 mm[Hg] Unive rsity of pressure [place] [facility] Heart rate 2020-09-30 14:00:00 79 /min Universi ty of [place] [facility] Oxygen saturation in 2020-09-30 14:00:00 98 /min University of Arterial blood by [facility] nicky Pulse oximetry Branch Body temperature 2020-09-30 13:26:00 37.22 Ruthann Univ ersity of [place] [facility] Respiratory rate 2020-09-30 13:26:00 16 /min Univ ersity of [place] [facility] Body weight 2020-09-30 13:26:00 72.576 kg Universi ty of [place] [facility] BMI 2020-09-30 13:26:00 28.80 kg/m2 Universi ty [facility] [place] [facility] Systolic blood 2020-09-30 14:00:00 126 mm[Hg] Univer sity of pressure [place] [facility] Diastolic blood 2020-09-30 14:00:00 84 mm[Hg] Unive rsity of pressure [place] [facility] Heart rate 2020-09-30 14:00:00 79 /min Universi ty of [place] [facility] Oxygen saturation in 2020-09-30 14:00:00 98 /min University of Arterial blood by [facility] nicky Pulse oximetry Branch Body temperature 2020-09-30 13:26:00 37.22 Ruthann Univ ersity of [place] [facility] Respiratory rate 2020-09-30 13:26:00 16 /min Univ ersity of [place] [facility] Body weight 2020-09-30 13:26:00 72.576 kg Universi ty [facility] [place] [facility] BMI 2020-09-30 13:26:00 28.80 kg/m2 [facility]i ty [facility] [place] [facility] Temperature Oral (F) 2019-01-28 01:16:00 98.6 F [facility] Yonis Systolic (mm Hg) 2019-01-28 01:16:00 Estrada rial [place] Diastolic (mm Hg) 2019-01-28 01:16:00 Mem orial [place] Heart Rate 2019-01-28 01:16:00 [facility] [place] Respitory Rate 2019-01-28 01:16:00 Memori al [place] Systolic (mm Hg) 2019-01-27 20:42:00 Estrada rial [place] Diastolic (mm Hg) 2019-01-27 20:42:00 Mem orial [place]is Heart Rate 2019-01-27 20:42:00 [facility] [place] Respitory Rate 2019-01-27 20:42:00 Memori al [place] Temperature Oral (F) 2019-01-27 20:42:00 98.5 F [facility] [place] Systolic (mm Hg) 2019-01-27 17:00:00 Estrada rial [place] Diastolic (mm Hg) 2019-01-27 17:00:00 Mem orial [place] Temperature Oral (F) 2019-01-27 17:00:00 98.5 F [facility] [place] Heart Rate 2019-01-27 17:00:00 [facility] [place] Respitory Rate 2019-01-27 17:00:00 [facility] [place] Height 2019-01-22 14:35:00 157.48 cm [facility] BMI Calculated 2019-01-22 14:35:00 [facility] [place] Weight 2019-01-22 14:35:00 [facility] [place] Weight 2019-01-22 04:34:00 [facility] Procedure Date / Time Performing Clinician Source Performed URINALYSIS 2021-09-10 06:03:00 [facility] URINE DRUG (IMMUNOASSAY) 2021-09-10 06:03:00 Neena Bradford [facility] n[facility] SCREEN W/O REFLEX XR CHEST 1 VW 2021-09-10 04:57:30 [facility] CREATINE KINASE 2021-09-10 04:39:00 [facility] MAGNESIUM 2021-09-10 04:39:00 [facility] TROPONIN I 2021-09-10 04:39:00 [facility] COMP. METABOLIC PANEL 2021-09-10 04:39:00 Neena Bradford [facility] ([id number]) Medical [place] CBC WITH DIFF 2021-09-10 04:39:00 [facility] PROTHROMBIN TIME / INR 2021-09-10 04:39:00 Neena Bradford [facility] ACTIVATED PARTIAL 2021-09-10 04:39:00 Neena Bradford [facility]-BNP 2021-09-10 04:39:00 Neena [facility] COVID-19 (ID NOW RAPID 2021-09-10 04:39:00 Neena Bradford [facility] TESTING) Medical Branch TROPONIN I 2021-09-09 21:49:00 [facility] COMP. METABOLIC PANEL 2021-09-09 21:49:00 LaneLuanne [facility] ([id number]) Medical Branch LITHIUM 2021-09-09 21:49:00 [facility] CBC WITH DIFF 2021-09-09 21:49:00 [facility] CONSENT/REFUSAL FOR 2021-09-09 19:51:22 Doctor Unassigned, No Un [facility] DIAGNOSIS AND TREATMENT Name Medical Branch URINALYSIS 2020-09-30 13:27:00 Jackson, [facility] ADC,CLC OR LCC ONLY - 2020-09-30 13:27:00 JacksonChuy aleman [facility] INFLUENZA A & B DIRECT Medical B ranch ANTIGEN COVID-19 (ID NOW RAPID 2020-09-30 13:27:00 JacksonChuy [facility] TESTING) Medical Branch Encounters Start End Encounter Admission Attending Care Care Encounter Source Date/Time Date/Time Type Type Clinicians Facility Department ID 2021-09-08 Outpatient Humaira-Mbayo VFP VFP [id number] [place] 02:24:16 _A_ [id number] Family Practic e 2021-09-07 Outpatient Humaira-Mbayo VFP VFP [id number] [place] 22:13:27 _A_AH [id number] Family Practic e 2021-09-07 Outpatient Humaira-Mbayo VFP VFP [id number] [place] 13:23:42 _A_ [id number] Family Practic e 2021-09-06 Outpatient Humaira-Mbayo VFP VFP [id number] [facility] 04:23:58 _A_AH [id number] Family Practic e 2021-09-05 Outpatient [facility] [id number] [facility] 19:22:48 _A_AH [id number] Family Practic e 2019-01-22 Inpatient E [facility] MED [id number] [facility] W 04:39:00 2021-09-09 2021-09-10 Emergency Sanchez [facility] [id number] Univers 22:20:00 03:02:00 Neena JIMENEZ 350.1.13.10 i ty of [place] 4.2.7.2.686 [facility] [id number] [address] 2021-09-09 2021-09-10 Emergency X SANCHEZ [facility] ERT [id number] Univers 22:20:00 03:02:00 NEENA tubbs [facility] 2021-09-09 2021-09-10 Emergency X SANCHEZ [facility] ERT [id number] Univers 22:20:00 03:02:00 NEENA tubbs [facility] 2021-09-09 2021-09-09 Emergency Julia [facility] [id number] Univers 14:07:00 17:35:00 Luanne JIMENEZ 350.1.13.10 i ty of [place] 4.2.7.2.686 [facility] [id number] [address] 2021-09-09 2021-09-09 Orders Doctor BELKYS [id number] Univers 00:00:00 00:00:00 Only Unassigned, LANA 350.1.13.10 ity of University [facility] 4.2.7.2.686 Joe [id number] [facility] 009 Branch 2020-09-30 2020-09-30 Chuy Jackson IASARAI [id number] Univers 07:22:00 08:18:00 Chuy Jimenez 350.1.13.10 i ty of [place] 4.2.7.2.686 [facility] [id number] [facility] 084 Branch 2020-09-30 2020-09-30 Chuy Jackson IASARAI [id number] 07:22:00 08:18:00 Chuy Jimenez 350.1.13.10 [place] 4.2.7.2.686 Ida [id number] 2020-09-30 2020-09-30 Emergency X SINGER [facility] ERT [id number] Univers 07:22:00 07:22:00 CHUY tubbs [facility] 2020-03-04 2020-03-14 Inpatient 3 Ronni Eldridge [facility] PSY [id number] 15:38:00 15:25:00 Chente [facility] 2019-01-22 2019-01-28 Inpatient Critical access hospital [id number] Memoria 04:33:00 04:40:00 r Yonis 00 l [facility] 2018-02-21 2018-02-20 [id number] [facility] 14:48:00 13:18:00 [facility] Results Test Description Test Time Test Comments Results Result Comments Source TROPONIN I 2021-09-10 05:26:53 Test Item Value Reference Range Interpretation Comme nts TROPONIN I (test code = 0.003 ng/mL See_Comment [Au tomated message] The 8553339652) system which ge nerated this result tra [...] biotin. Lab Interpretation Normal (test code = 65890-9) [id number] 05:24:16 Test Item Value Reference Range Interpretation Comments NT-proBNP (test code 35 pg/mL See_Comment [Autom ated = 4959197248) message] The system which generated this result transmitted reference range : <=125. The reference range was not used to interpret this result as normal/abnormal . PERRY (test code = PERRY) Biotin has been reported to cause a negative bias, interpret results relative to patient's use of biotin. Lab Interpretation Normal (test code = 36980-8) [facility] 05:16:51 Test Item Value Reference Range Interpretation Comments MAGNESIUM (test code = 7359431465) 1.8 mg/dL 1.7-2.4 Lab Interpretation (test code = Normal 48953-9) [facility] [place] [facility]. METABOLIC PANEL (09758)2021-09-10 05:16:31 Test Item Value Reference Range Interpretation Comments NA (test code = 139 mmol/L 135-145 9182731431) K (test code = 4.0 mmol/L 3.5-5.0 8868047996) CL (test code = 108 mmol/L 98-108 6370808328) CO2 TOTAL (test code 25 mmol/L 23-31 = 1738688370) AGAP (test code = 2-16 9144551851) BUN (test code = 14 mg/dL 7-23 0660878695) GLUCOSE (test code = 88 mg/dL 70-110 1013046343) CREATININE (test code 0.89 mg/dL 0.50-1.04 = 8363938462) TOTAL BILI (test code 0.5 mg/dL 0.1-1.1 = 0306206860) CALCIUM (test code = 10.3 mg/dL 8.6-10.6 2795456867) T PROTEIN (test code 6.9 g/dL 6.3-8.2 = 9658700326) ALBUMIN (test code = 4.3 g/dL 3.5-5.0 4245876206) ALK PHOS (test code = 72 U/L 34-122 1763213324) ALTv (test code = 17 U/L 5-35 1742-6) AST(SGOT) (test code 29 U/L 13-40 = 7836411215) eGFR (test code = mL/min/1.73m2 3036005118) PERRY (test code = PERRY) Association of [...] or urine or abnormalities in imaging tests). [facility] [id number] 05:16:16 Test Item Value Reference Range Interpretation Comments CK (test code = 7224456515) 267 U/L 33-194 H Lab Interpretation (test code = Abnormal 47477-7) [facility] THRMPLAS [id number] 05:05:32 Test Item Value Reference Range Interpretation Comments APTT Patient (test See_Comment [Automat ed code = 3173-2) message] The system which generated this result transmitted reference range : 23 - 38 Seconds . The reference range was not used to interpr et this result as normal/abnormal . PERRY (test code = PERRY) The [facility] patient population mean normal value for aPTT is 30 seconds. Lab Interpretation Normal (test code = 89410-3) [facility] / [id number] 05:03:30 Test Item Value Reference Range Interpretation [...] tions. Lab Interpretation (test Normal code = 83566-7) [facility] WITH [id number] 04:57:13 Test Item Value Reference Range Interpretation Comments WBC (test code = See_Comment [Automated 4590-2) message] The sy stem which generated this [...] RDW-SD (test code = 41.2 fL 39.0-49.9 12018-7) RDW-CV (test code = 13.0 % 12.0-15.5 788-0) PLT (test code = See_Comment H [Automated 777-3) message] The sy stem which generated this result transmitted reference range : 166 - 358 10*3/ ?L. The reference r katie was not used to interpret this result as normal/abnormal . MPV (test code = 9.6 fL 9.5-12.9 53542-3) NRBC/100 WBC (test See_Comment [Automat ed code = 5106714149) message] The system which generated this result transmitted reference range : 0.0 - 10.0 /100 WBCs. The refer ence range was not u sed to interpret th is result as normal/abnormal . NRBC x10^3 (test code <0.01 See_Comment [Auto mated = 9517880433) message] The s ystem which generated this result transmitted reference range : 10*3/?L. The reference range was not used to interpret this result as normal/abnormal . GRAN MAT (NEUT) % 61.9 % (test code = 770-8) IMM GRAN % (test code 0.30 % = 2353613891) LYMPH % (test code = 26.0 % 736-9) MONO % (test code = 9.5 % 5905-5) EOS % (test code = 1.6 % 713-8) BASO % (test code = 0.7 % 706-2) GRAN MAT x10^3(ANC) 5.91 10*3/uL 1.88-7.09 (test code = 7374418628) IMM GRAN x10^3 (test 0.03 10*3/uL 0.00-0.06 code = 4013200297) LYMPH x10^3 (test code 2.48 10*3/uL 1.32-3.29 = 731-0) MONO x10^3 (test code 0.91 10*3/uL 0.33-0.92 = 742-7) EOS x10^3 (test code = 0.15 10*3/uL 0.03-0.39 711-2) BASO x10^3 (test code 0.07 10*3/uL 0.01-0.07 = 704-7) Lab Interpretation Abnormal (test code = 86645-4) [facility] [id number] 22:24:55 Test Item Value Reference Interpretation Comments Range TROPONIN I (test 0.002 ng/mL See_Comment [Automated code = 8610381612) message] The system which generated this result [...] biotin. Lab Interpretation Normal (test code = 59395-1) [facility] 22:24[facility]34 Test Item Value Reference Range Interpretation Comments [place] (test code = <0.2 0.6-1.2 L 5856037000) PERRY (test code = PERRY) Toxic Range: ? Greater than 1.2 mmol/L Lab Interpretation (test Abnormal code = 37515-0) [facility] CenterCOMP[facility] MET[facility]OLIC PANEL (21196)2021-09-09 22:13:54 Test Item Value Reference Range Interpretation Comments NA (test code = 139 mmol/L 135-145 1084953384) K (test code = 4.0 mmol/L 3.5-5.0 4542025642) CL (test code = 105 mmol/L 98-108 3188841390) CO2 TOTAL (test code 26 mmol/L 23-31 = 9444170508) AGAP (test code = 2-16 8291515887) BUN (test code = 11 mg/dL 7-23 5077287395) GLUCOSE (test code = 109 mg/dL 70-110 3024295036) CREATININE (test code 0.71 mg/dL 0.50-1.04 = 5209169975) TOTAL BILI (test code 0.6 mg/dL 0.1-1.1 = 3641507190) CALCIUM (test code = 10.4 mg/dL 8.6-10.6 7875903369) T PROTEIN (test code 7.6 g/dL 6.3-8.2 = 2081999371) ALBUMIN (test code = 4.7 g/dL 3.5-5.0 8154303629) ALK PHOS (test code = 78 U/L 34-122 2253659700) ALTv (test code = 19 U/L 5-35 2-6) AST(SGOT) (test code 28 U/L 13-40 = 1063519054) eGFR (test code = mL/min/1.73m2 2318638460) PERRY (test code = PERRY) Association of [...] tests). [facility] WITH PERK7687-26-75 22:03:32 Test Item Value Reference Range Interpretation Comments WBC (test code = See_Comment [Automated 7546-2) message] The sy stem which generated this [...] RDW-SD (test code = 40.2 fL 39.0-49.9 08806-4) RDW-CV (test code = 12.9 % 12.0-15.5 788-0) PLT (test code = See_Comment H [Automated 777-3) message] The sy stem which generated this result transmitted reference range : 166 - 358 10*3/ ?L. The reference r katie was not used to interpret this result as normal/abnormal . MPV (test code = 9.4 fL 9.5-12.9 L 84255-2) NRBC/100 WBC (test See_Comment [Automat ed code = 6402121244) message] The system which generated this result transmitted reference range : 0.0 - 10.0 /100 WBCs. The refer ence range was not u sed to interpret th is result as normal/abnormal . NRBC x10^3 (test code <0.01 See_Comment [Auto mated = 4008696367) message] The s ystem which generated this result transmitted reference range : 10*3/?L. The reference range was not used to interpret this result as normal/abnormal . GRAN MAT (NEUT) % 67.1 % (test code = 770-8) IMM GRAN % (test code 1.00 % = 8057904241) LYMPH % (test code = 21.4 % 736-9) MONO % (test code = 7.9 % 5905-5) EOS % (test code = 1.8 % 713-8) BASO % (test code = 0.8 % 706-2) GRAN MAT x10^3(ANC) 7.35 10*3/uL 1.88-7.09 H (test code = 0762081561) IMM GRAN x10^3 (test 0.11 10*3/uL 0.00-0.06 H code = 4443555834) LYMPH x10^3 (test code 2.34 10*3/uL 1.32-3.29 = 731-0) MONO x10^3 (test code 0.86 10*3/uL 0.33-0.92 = 742-7) EOS x10^3 (test code = 0.20 10*3/uL 0.03-0.39 711-2) BASO x10^3 (test code 0.09 10*3/uL 0.01-0.07 H = 704-7) Lab Interpretation Abnormal (test code = 99614-4) [facility] CenterADC,CLC OR [facility] ONLY - INFLUENZA A & B DIRECT RFVHFTH2532-29-60 14:04:00 Test Item Value Reference Range Interpretation Comments Influenza A (test code = 65476-0) Negative Negative Influenza B (test code = 87175-1) Negative Negative Lab Interpretation (test code = Normal 00949-5) [facility] CenterCOVID[facility] (ID NOW RAPID TESTING)2020-09-30 14:03:00 Test Item Value Reference Range Interpretation Comments SARS-CoV-2 Rapid ID NOW Not Detected Not Detected (test code = 50210-1) PERRY (test code = PERRY) ID NOW COVID-19 Assay is an isothermal nucleic acid amplification test intended for the qualitative detection of nucleic acid from SARS-CoV-2 viral RNA in nasopharyngeal (RECONCILIATION ACCOUNTANT) specimens. It is used under Emergency [...] indicated. Lab Interpretation Normal (test code = 32018-6) [facility] CenterURINALYSIS2020-12-07 13:55:00 Test Item Value Reference Range Interpretation Comments APPEARANCE (test code = Hazy Clear A 9005045339) COLOR (test code = Yellow Yellow 3852652114) PH (test code = 4.8-8.0 9415501377) SP GRAVITY (test code = 1.003-1.030 9013962887) GLU U QUAL (test code = Normal Normal 2043315656) BLOOD (test code = Negative Negative 4204615795) KETONES (test code = 5 mg/dL Negative A 7760870659) PROTEIN (test code = Negative Negative 2887-8) UROBILIN (test code = 2.0 mg/dL Normal A 3767852637) BILIRUBIN (test code = Negative Negative 4479809860) NITRITE (test code = Negative Negative 5489595507) LEUK ROZINA (test code = 25/uL Negative A 1337699950) RBC/HPF (test code = See_Comment [Autom ated message] 2419457997) The system [employer] generated this result transmit ngozi reference range : 0 - 3 HPF. The refe rence range was not u sed to interpret th is result as normal/abnormal . WBC/HPF (test code = See_Comment [Autom ated message] 0368763955) The system [employer] generated this result transmit ngozi reference range : 0 - 5 HPF. The refe rence range was not u sed to interpret th is result as normal/abnormal . BACTERIA (test code = Few Negative A 6754159383) MUCOUS (test code = Slight Negative LPF A 7317188401) SQ EPITH (test code = HPF 3794445880) Lab Interpretation (test Abnormal code = 08858-0) [facility] CenterRPR Eqfirktgwci8427-75-74 16:42:24 Test Item Value Reference Range Interpretation [...] = 10-24-2020 N Expiration Dt) Thyroid Stimulating Iwurqac2617-21-18 08:35:16 Test Item Value Reference Range Interpretation Comments TSH (test code = TSH) 1.170 mIU/mL 0.270-4.200 Lipid Axibs5053-69-66 08:21:19 Test Item Value Reference Range Interpretation Comments Cholesterol Total 254 mg/dL 0-200 H RISK OF HE ART (test code = DISEASEPublishe d by Cholesterol Total) [place] [employer] Cathie lyte Optimal Borderl ine [...] calculation is LDL/HDL Ratio=L DL Calc/HDL Chol JCYRLPUHTTUI1425-35-24 08:24:008.6[facility] AymsohhAIHXJDUEWCMU8931-37-59 08:24:08436Xensvtto UauoulwBCQGHUUFVLLW7307-56-75 08:24:0027[facility] QTBQSSVDEPCL8395-27-06 08:24:59572Xsktiatf GygektrWGLGVUISLOPT9227-92-80 08:24:003.6[facility] YrsajkqATGIOSTXOFZO4628-54-74 08:24:000.70[facility] BNKZVAPHFYAX7663-36-75 08:24:008.4[facility] RpmdvwcZBYSKZSDCQCZ6029-61-25 08:24:84929Myyltcqg JbsamuzAHTMKJSSZYXJ1052-90-64 08:24:0086[facility] HPWXKKSBFQOY8524-11-49 08:24:006[facility] ZdmfqcxMKUFYDWQKL1771-90-90 08:24:00 11.6[facility] SiwawxdCVEJJAHGJW1954-51-46 08:24:003.78[facility]annHEMATOLOGY 2019-01-26 08:24:0013.3[facility] FqkrmneWJUXEHVDJT7466-44-63 08:24:0034.0[facility] SmkxrmlFXNATUSDNW3268-82-31 08:24:006.3[facility] OcqgxdzUNFKZZHXGY9823-61-15 08:24:00 Test Item Value Reference Range Interpretation Comments MCH (test code = MCH) 30.7 pg 27.0-31.0 [facility] IacqktoIUXHSUZLJK6887-49-12 08:24:0090.3[facility] HermannHEMATOLOGY 2019-01-26 08:24:0034.2[facility] XosjwuzQZIOLBSJFD7841-60-09 08:24:90213Elipemqn RwhvqwxWSNCPOGDHO7217-61-00 08:24:007.5[facility] JrjcfdyGHWCKXLHJWHJ9630-85-49 08:24:008.6[facility] KkitvqbMQONHYMOBHUQ5489-39-00 08:24:87778Ipkzfvqk [facility]is RSBYRYECGSDO5836-41-65 08:24:0027[facility] SvzmodpFZGBZLDOCPAA3428-84-66 08:24:00 139[facility] BpzsqxrKKWAQEBADMAF8735-00-95 08:24:003.6[facility] LFSIXUITDXZB1174-45-43 08:24:000.70[facility] IgntnotQFYYWNHVZOIC5604-49-72 08:24:008.4[facility] ZjprkitARNUQERZJOHZ1041-15-34 08:24:72327Yejrqcrt [facility] ACEBBKAYZIQY8610-27-14 08:24:0086[facility] IshkxspGZEOFTFVTVBU0325-17-14 08:24:00 6[facility] RjhnwrrRWRYYUYXJG4640-36-15 08:24:0011.6[facility]annHEMATOLOGY 2019-01-26 08:24:003.78[facility] UvkfbscFXUZINLXFX1775-87-90 08:24:0013.3[facility] UzbltiaPHOZARKZTE8877-97-71 08:24:0034.0[facility] WumvsezZNEVHAJHRN5413-87-75 08:24:006.3[facility] OemjzjtXTVEZMIBBZ6457-93-47 08:24:00 Test Item Value Reference Range Interpretation Comments MCH (test code = MCH) 30.7 pg 27.0-31.0 [facility] OzqvauiFPCFOAUCSS0557-18-40 08:24:0090.3[facility]annHEMATOLOGY 2019-01-26 08:24:0034.2[facility] RlfworcBUQMCWBOMU1230-55-24 08:24:14463Nvidicch TsytecbTXVCIUJHIE3219-80-47 08:24:007.5[facility] HermannCHEM WAHKM3387-49-17 09:14:13983Qbwwberc HermannCHEM EBGCJ4152-74-03 09:14:008.5[facility] HermannCHEM UKHLG0295-91-47 09:14:0013.3[facility]annCHEM BYPGR9075-87-52 09:14:0024 [facility]annCHEM OKWFH2982-95-53 09:14:98748Stfshwdk HermannCHEM PANEL 2019-01-25 09:14:0081[facility] HermannCHEM LQZSS9015-42-69 09:14:002[facility]annCHEM ETNRU0543-75-51 09:14:003.3[facility]annCHEM ZOMFN0334-10-37 09:14:000.60[facility]annCHEM DPHYV7997-15-98 09:14:02513Cmbqioaq HermannCHEM LOEII3809-14-87 09:14:88035Qtidtivj [facility]annCHEM JREHB5394-82-41 09:14:008.5 [facility]annCHEM KEZXB6929-52-34 09:14:0013.3[facility]annCHEM PANEL 2019-01-25 09:14:0024[facility]annCHEM QIQRT7607-25-86 09:14:36447Jfvesmcn [facility]annCHEM RVCYY2319-97-54 09:14:0081[facility]annCHEM XCCPR5071-87-01 09:14:002[facility]annCHEM OOOGP2366-91-47 09:14:003.3[facility]annCHEM JUJOM3162-16-32 09:14:000.60[facility]annCHEM BHTKW7194-30-53 09:14:60201 [facility]annMOLECULAR ESUSZKOXOP8438-69-51 16:22:00Negative (01/23/19 11:22 AM)[facility] HermannMOLECULAR NYLVSCDBXO7350-00-01 16:22:00Negative (01/23/19 11:22 AM)[facility]annCHEM LODHV0786-09-31 15:42:002.76[facility] HermannCHEM PANEL 2019-01-23 15:42:002.76[facility] HermannCHEM SECPS3152-45-51 12:32:000.9[facility]annCHEM RQVZG1183-66-06 12:32:000.9[facility]annCHEM KSSDI1537-70-14 10:50:002.0[facility]annCHEM IRHNE7404-68-17 10:50:93691Bipfnbvn HermannCHEM YBDUU3337-94-81 10:50:0023[facility] HermannCHEM LNVPD5520-37-30 10:50:62638 [facility]annCHEM EAVEU6231-02-14 10:50:003.1[facility] HermannCHEM PANEL 2019-01-23 10:50:38840Evopvpyq HermannCHEM DCVJY5006-80-09 10:50:005[facility]annCHEM BZFWT3827-82-92 10:50:000.50[facility]annCHEM DVNWQ7149-77-95 10:50:007.8[facility]annCHEM RKBAD1569-82-70 10:50:0083[facility]annCHEM GVHFK9351-45-10 10:50:0010.1[facility] RxoxqoqBMSOWXEMAS4129-44-78 10:50:000.2 [facility] ZremlifUAIRQOVTDZ8607-95-47 10:50:000.8[facility] HermannHEMATOLOGY 2019-01-23 10:50:005.5[facility] XsndjygYCVOVVOTXT2716-43-60 10:50:002.2[facility] SynkfgjXMBODKMFYN9817-45-80 10:50:000.1[facility] MnlfgbdHUXIWXBFGJ1678-39-58 10:50:0063.6[facility] PgblidgKWVYXODTIJ7839-33-02 10:50:008.9[facility] SBQDRAKCCQ2104-64-23 10:50:002.3[facility] RexnwauGMWLOWTLEK0334-85-13 10:50:00 Normal (01/23/19 5:50 AM)[facility] XrcnyppQNUXXUIETX1699-97-33 10:50:00Normal (01/23/19 5:50 AM)[facility] LzfvkzrIAOZWOTFCO1301-73-81 10:50:0025.1[facility] JuwsqtgLGXRTZTXKG3906-09-93 10:50:0013.1[facility] NfipyquSDXLTXUTFL0865-03-25 10:50:33372Lryycnpa YjyyrdrZWOFALWGFB6071-68-19 10:50:007.7[facility] HRNVHHIPCH6084-41-01 10:50:008.6[facility] AzyfhwuLBCAIMAMRD1415-92-85 10:50:00 10.0[facility] CtqbzcqZJDOYOMBXS8628-39-41 10:50:0034.[facility] HermannHEMATOLOGY 2019-01-23 10:50:0028.7[facility] NltkgroFLYXGBAVGH8927-41-04 10:50:0087.8[facility] RhkzvdkLWGXALGJIA7910-34-01 10:50:00 Test Item Value Reference Range Interpretation Comments MCH (test code = MCH) 30.4 pg 27.0-31.0 [facility] KkivwqlHSGTCLRSMY3209-84-81 10:50:003.27[facility] HermannHEMATOLOGY 2019-01-23 10:50:84035Loxafvgg IsijccdHJETTADBSF9430-76-70 10:50:007.7[facility] VrhbxjfLXTTJHBZMK9005-42-13 10:50:008.[facility]orial NbjmbnlFZTIWFVOXI5000-59-13 10:50:0010.0[facility] ZncnofaUUUUNRPGFG3033-38-86 10:50:0034.[facility] HPOGYUSRYM8451-74-54 10:50:0028.7[facility] BwrhehcKMRRNGRMSL6995-77-00 10:50:00 87.8[facility] YbgqwulLGUSUOCPKM2881-43-01 10:50:00 Test Item Value Reference Range Interpretation Comments MCH (test code = MCH) 30.4 pg 27.0-31.0 [facility] CqjcmcpXQZPEGKVPQ9161-32-55 10:50:003.27[facility] HermannCHEM PANEL 2019-01-23 10:50:002.0[facility] HermannCHEM GJDOI7132-89-84 10:50:61411Onepncbz HermannCHEM IAFDT9324-61-11 10:50:0023[facility]annCHEM EUUHW1872-99-20 10:50:95392Zxsjapad [facility]annCHEM PNNHQ8857-73-85 10:50:003.1[facility] HermannCHEM DODCX0040-28-39 10:50:21507Ofmzolmv [facility]annCHEM ZGSUR9191-00-37 10:50:005 [facility]annCHEM FZBFZ4241-38-38 10:50:000.50[facility] HermannCHEM PANEL 2019-01-23 10:50:007.8[facility] HermannCHEM UAVWG0143-87-35 10:50:0083[facility]annCHEM AUOUH7115-78-72 10:50:0010.1[facility] CantlauQNTWIAOAVV4015-44-15 10:50:000.2[facility] VwvgitoFYDEZERCKA0410-60-56 10:50:000.8[facility] QPDZGPNZQN3630-28-23 10:50:005.5[facility] JqksdsyKQPPCVPAVL0798-45-80 10:50:002.2 [facility] KajvnxuLTABNGQJTP5199-64-70 10:50:000.1[facility] HermannHEMATOLOGY 2019-01-23 10:50:0063.6[facility] BpfnatzRXAJPWOZJM5633-78-38 10:50:008.9[facility] BvuecooFKNPGZLLVB6006-02-62 10:50:002.3[facility] MhaptfeOVONRAPYRI8956-12-32 10:50:00Normal (01/23/19 5:50 AM)[facility] OsupgfwUQGTRJWUFM8615-01-62 10:50:00 Normal (01/23/19 5:50 AM)[facility] KakqoemSSCLEPYPYS8476-85-76 10:50:0025.1[facility] QzbwmadTIZIZLGFAR8151-60-00 10:50:0013.1[facility] HermannCHEM LACOF4855-24-69 11:32:002.4[facility] HermannCHEM DEWXZ5017-14-16 11:32:002.4[facility] HermannCHEM GASIM0448-37-97 09:04:003.0[facility] HermannCHEM LMAGS9940-20-04 09:04:003.0 [facility]UR[facility] AND IQUYB8977-87-65 07:14:00 Test Item Value Reference Range Interpretation Comments UA Spec Grav (test code = UA Spec 1.014 1 Grav) [facility] ZNSFQ9949-66-77 07:14:00 Test Item Value Reference Range Interpretation Comments UA pH (test code = UA pH) 6.0 1 5.0-8.0 [facility] NPINL2027-39-20 07:14:00Negative (01/22/19 2:14 AM) [facility] VBPUN5421-55-66 07:14:00Negative *NA*(01/22/19 2:14 AM) [facility] USLTT7778-64-10 07:14:00Negative *NA*(01/22/19 2:14 AM) [facility] MIWDJ0316-66-59 07:14:00Negative *NA*(01/22/19 2:14 AM) [facility] EAXKS2961-74-75 07:14:00Negative (01/22/19 2:14 AM) [facility] NYOJP7496-27-84 07:14:00Negative (01/22/19 2:14 AM) [facility] HVQXC7022-34-27 07:14:00Negative (01/22/19 2:14 AM) [facility] HMAJO2438-69-83 07:14:00<1[facility] SNGRZ5833-81-12 07:14:0025[facility] AND JXJJZ2507-87-07 07:14:002 [facility] NQLDL4085-64-37 07:14:00Light Yellow *NA*(01/22/19 2:14 AM)[facility] GWUFO6490-43-08 07:14:00Clear (01/22/19 2:14 AM) [facility] TZWMB1288-66-17 07:14:00 Test Item Value Reference Range Interpretation Comments UA Spec Grav (test code = UA Spec 1.014 1 Grav) [facility] FVOMT1042-07-25 07:14:00 Test Item Value Reference Range Interpretation Comments UA pH (test code = UA pH) 6.0 1 5.0-8.0 [facility] FTLTN5348-93-22 07:14:00Negative (01/22/19 2:14 AM) [facility] NMADT0023-71-57 07:14:00Negative *NA*(01/22/19 2:14 AM) [facility] HSPSF0682-97-80 07:14:00Negative *NA*(01/22/19 2:14 AM) [facility] CMOPE7962-62-34 07:14:00Negative *NA*(01/22/19 2:14 AM) [facility] PDVFY9123-31-76 07:14:00Negative (01/22/19 2:14 AM) [facility] ARXGC5645-37-93 07:14:00Negative (01/22/19 2:14 AM) [facility] XMFPZ2417-14-55 07:14:00Negative (01/22/19 2:14 AM) [facility] NDYXW9147-10-01 07:14:00<1[facility] GJZYF9113-27-84 07:14:0025[facility] EPGLI4988-28-42 07:14:002 [facility] FARVQ4421-03-51 07:14:00Light Yellow *NA*(01/22/19 2:14 AM)[facility] SSJGQ3890-86-34 07:14:00Clear (01/22/19 2:14 AM) [facility] EpnmjidJKMYQ0991-01-80 05:16:000.90[facility] QkzypurACBGB5699-73-64 05:16:000.90[facility] CsgzpdxYZFBEGXJJE0083-74-96 05:01:009.9[facility] NZENDHGEEU8990-69-29 05:01:0032.8[facility] OaezcnkVZUAQVLWST6503-64-70 05:01:00 13.6[facility] CvzmkjsSNHVXSVWQC2808-05-40 05:01:56173Usjbiana HermannHEMATOLOGY 2019-01-22 05:01:007.3[facility] VgpeculIVGGMHKBUY1634-65-10 05:01:0014.0[facility] BoamvocWDOUFHKVHL2299-48-79 05:01:004.85[facility] DtsicuyIPIRFXRSRD9502-63-34 05:01:0042.7[facility] TxnhukwKWALSGPXJL1586-88-12 05:01:00 Test Item Value Reference Range Interpretation Comments MCH (test code = MCH) 29.0 pg 27.0-31.0 [facility] QtcsykaEQYFAVGRBT1939-53-44 05:01:0088.2[facility] HermannHEMATOLOGY 2019-01-22 05:01:00 Test Item Value Reference Range Interpretation Comments INR (test code = INR) 0.96 1 0.85-1.17 [facility] BdtyqvzWSRFIDYQQZ4589-05-17 05:01:00 Test Item Value Reference Range Interpretation Comments PT (test code = PT) 12.6 s 12.0-14.7 [facility] RriihvtGTDWDMDCLB9389-49-57 05:01:00 Test Item Value Reference Range Interpretation Comments PTT (test code = PTT) 25.9 s 22.9-35.8 [facility] ZGAKWAH9545-71-20 05:01:00Negative (01/22/19 12:01 AM) [facility] CenterannCARDIAC REHPNHV7232-84-99 05:01:00<0.02[facility] CARDIAC QPFNAEN2406-70-26 05:01:0049[facility] HermannCHEM BOPOC4503-55-79 05:01:000.6[facility]annCHEM CBYIT6993-61-04 05:01:61009Oyipyzoy HermannCHEM HFKSQ6832-98-32 05:01:004.0[facility]annCHEM BUCID8317-66-74 05:01:0017 [facility]annCHE[facility] YDREH4874-76-80 05:01:0025[facility]annCHEM PANEL 2019-01-22 05:01:008.1[facility]annCHEM ZPUKK9819-86-17 05:01:00 Test Item Value Reference Range Interpretation Comments B/C Ratio (test code = B/C Ratio) 20 1 6-25 [facility]annCHEM UMOLX9929-29-71 05:01:00 Test Item Value Reference Range Interpretation Comments A/G Ratio (test code = A/G Ratio) 1.0 1 0.7-1.6 [facility]annCHEM LMBSK8411-51-15 05:01:004.1[facility]annCHEM PANEL 2019-01-22 05:01:006.90[facility] RlzpiiwTYWJZJZAUFTSH4383-73-24 05:01:00Negative *NA*(01/22/19 12:01 AM)[facility] LdvbihaVBYOBORRHN6042-19-19 05:01:000.1[facility] LrogrthDYGTHYNFQE0009-62-56 05:01:000.7[facility] WkmlutbAOKUAIWTDX7647-90-57 05:01:000.0[facility] KaxpcxcNGZIBWVWBB1434-33-84 05:01:000.0[facility] BGIAXTYLKY0174-37-09 05:01:000.9[facility] CluzxbmTVSNABUOXY5945-75-78 05:01:008.6 [facility] WulbwokABQKBNYEPS3395-65-57 05:01:000.6[facility]annHEMATOLOGY 2019-01-22 05:01:0086.5[facility] OlijtbxEONRKCJALN7823-53-68 05:01:005.7[facility] ZhnlfksICTUPYDLOJ7612-41-72 05:01:006.9[facility] OhrtxctAUFPDPLEYM4130-25-79 05:01:009.9[facility] JfgwhtnVTJEZUOXLO8419-23-51 05:01:0032.8[facility] URXGUPSOBQ1295-98-42 05:01:0013.6[facility] ZhmkctkFTMXVNRMAQ2284-02-79 05:01:00 443[facility] AabbqotFVZDKCNRGS4827-60-51 05:01:007.3[facility]annHEMATOLOGY 2019-01-22 05:01:0014.0[facility] GjwzwduVNPREPVWAU0072-66-74 05:01:004.85[facility] QpoabrvROLZTEVXXF7943-92-30 05:01:0042.7[facility] HsmvqamUWPSUQHCEX5924-86-02 05:01:00 Test Item Value Reference Range Interpretation Comments MCH (test code = MCH) 29.0 pg 27.0-31.0 [facility] HwkwqoqNWPJWOMTIU0934-84-89 05:01:0088.2[facility] HermannHEMATOLOGY 2019-01-22 05:01:00 Test Item Value Reference Range Interpretation Comments INR (test code = INR) 0.96 1 0.85-1.17 [facility] CenterHqmpqphYXPCMYGGCO5551-43-39 05:01:00 Test Item Value Reference Range Interpretation Comments PT (test code = PT) 12.6 s 12.0-14.7 [facility] ZkqeleeSZTGQGXXHF9345-06-78 05:01:00 Test Item Value Reference Range Interpretation Comments PTT (test code = PTT) 25.9 s 22.9-35.8 [facility] ZZLFPOU2360-88-39 05:01:00Negative (01/22/19 12:01 AM) [facility] CenterannCARDIAC SHBCKPG9948-36-61 05:01:00<0.02[facility] CARDIAC OLPSVBU8870-51-21 05:01:0049[facility] HermannCHEM VCKJA2086-51-56 05:01:000.6[facility] HermannCHEM LYYPL6481-77-23 05:01:52155Zzeigobu HermannCHEM OTZLB5544-65-40 05:01:004.0[facility] HermannCHEM KSDRA1967-07-68 05:01:0017 [facility]annCHEM IEWJP6707-98-15 05:01:0025[facility]annCHEM PANEL 2019-01-22 05:01:008.1[facility]CHEM EIVCP6918-02-23 05:01:00 Test Item Value Reference Range Interpretation Comments B/C Ratio (test code = B/C Ratio) 20 1 6-25 [facility] [id number] 05:01:00 Test Item Value Reference Range Interpretation Comments A/G Ratio (test code = A/G Ratio) 1.0 1 0.7-1.6 [facility] [id number] 05:01:004.1[facility]annCHEM PANEL 2019-01-22 05:01:006.90[facility] EpfccgmFQCQJIMLXGWKJ3865-46-07 05:01:00Negative *NA*(01/22/19 12:01 AM)[facility] XbesajrJZMKDQSCNK1950-98-18 05:01:000.1[facility] LckwyedEQHOBXAYYL7371-11-75 05:01:000.7[facility] SnftjgjZAQJIZLAKR4392-28-96 05:01:000.0[facility] RncfkpeXJGPPRBVVK9656-53-60 05:01:000.0[facility] Yonis NWDBEKHXQC5899-06-85 05:01:000.9[facility] SugmxrdMFPXCQHJBJ7709-82-55 05:01:008.6 [facility] YdlwgryGAGVXBKHNE7792-76-96 05:01:000.6[facility] HermannHEMATOLOGY 2019-01-22 05:01:0086.5[facility] DelppgpZBPXBGITRS2297-92-58 05:01:005.7[facility] HymhdyfDAHUXGEDAA5901-56-50 05:01:006.9[facility] GnxffivWHB6N3771-55-75 14:36:00 Test Item Value Reference Range Interpretation [...] 0.00-0.01 N code = ETOHU) Comprehensive Metabolic Zhrcv1675-13-78 14:36:00 Test Item Value Reference Range Interpretation [...] the [employer],http :[email or web address].nih.gov Urinalysis Necljkye3317-92-03 14:32:00 Test Item Value Reference Range Interpretation Comments Color (test code = COLOR) Yellow Yellow,Straw,Pl N yellow Clarity (test code = Clear Clear N CLAR) Specific [place] (test 1.024 1.001-1.035 N code = SPGR) [...] code = Few /HPF BACT) CBC with Nugtticqdqwb6810-24-34 14:21:00 Test Item Value Reference Range Interpretation [...] code = ALYMPH) 3.0 K/cumm 0.5-4.6 N [place] Abs (test code = AMONO) 0.5 K/cumm 0.0-1.2 N Eos Abs (test code = AEOS) 0.19 K/cumm 0.00-0.74 N Baso Abs (test code = ABASO) 0.1 K/cumm 0.00-0.21 N
--- NOTE | 2021-09-14 23:31 | ER ---
Nurse's Notes [facility] Name: Tiffany Quinn Age: 51 yrs Sex: Female : 1970 Arrival Date: 09/14/2021 Time: 19:29 Bed Waiting Private MD: Diagnosis: Other specified anxiety disorders Presentation: 09/14 21:04 Chief complaint: Patient states: "once I got home earlier I started feeling the same vg1 way again as before I cant feel my pulse and when I walk around the house I dont have a blood pressure, but when I go outside I feel better." States nausea, denies pain. Coronavirus screen: Vaccine status: Patient reports receiving the 2nd dose of the covid vaccine. Ebola Screen: Patient negative for fever greater than or equal to 101.5 degrees Fahrenheit, and additional compatible Ebola Virus Disease symptoms. Initial Sepsis Screen: Does the patient meet any 2 criteria? No. Patient's initial sepsis screen is negative. Does the patient have a suspected source of infection? No. Patient's initial sepsis screen is negative. Risk Assessment: Do you want to hurt yourself or someone else? Patient reports no desire to harm self or others. Onset of symptoms was September 14, 2021. 21:04 Method Of Arrival: Ambulatory vg1 21:04 Acuity: MANUEL 3 vg1 Triage Assessment: 21:08 General: Appears in no apparent distress. uncomfortable, Behavior is anxious. Pain: vg1 Denies pain. Historical: - Allergies: 21:08 Haldol; vg1 21:08 Pepcid; vg1 21:08 Toradol; vg1 - Home Meds: 21:08 Atarax Oral [Active]; lithium carbonate 300 mg Oral tab 1 cap 3 times per day [Active]; vg1 Seroquel Oral [Active]; - PMHx: 21:08 Anxiety; Bipolar disorder; vg1 - PSHx: 21:08 breast augmentation; Cholecystectomy; hernia repair; vg1 - Immunization history:: Client reports receiving the 2nd dose of the Covid vaccine. - Social history:: Smoking status: Patient denies any tobacco usage or history of. Patient uses street drugs, Methamphetamine (Meth). Screenin/22 00:00 Abuse screen: Denies threats or abuse. Denies injuries from another. Nutritional lp1 screening: No deficits noted. Tuberculosis screening: No symptoms or risk factors identified. Fall Risk None identified. Assessment: 00:00 General: Appears in no apparent distress. Behavior is anxious. Neuro: Level of lp1 Consciousness is awake, alert, obeys commands, Oriented to person, place, time, situation, Gait is steady. Cardiovascular: Patient's skin is warm and dry. Respiratory: Respiratory effort is even, unlabored. Derm: Skin is intact, Skin is dry, Skin is pale. Musculoskeletal: No deficits noted. Vital Signs: 09/14 21:04 BP 140 / 101; Pulse 115; Resp 24; Temp 99.4(O); Pulse Ox 97% ; Weight 130.18 kg; Height vg1 5 ft. 1 in. (154.94 cm); Pain 0/10; 21:04 Body Mass Index 54.23 (130.18 kg, 154.94 cm) 1 ED Course: 19:29 Patient arrived in ED. 21:08 Triage completed. 1 21:08 Arm band placed on. [facility] 22:15 Bernard Rodriguez PA is PHCP. [facility] 22:15 David Brown MD is Attending Physician. [facility] 09/15 00:00 Patient has correct armband on for positive identification. lp1 00:00 No provider procedures requiring assistance completed. Patient did not have IV access lp1 during this emergency room visit. Administered Medications: No medications were administered Outcome: 09/14 23:30 Discharge ordered by . [facility] 09/15 00:00 Discharged to home ambulatory. lp1 Condition: good Discharge instructions given to patient, Instructed on discharge instructions, follow up and referral plans. medication usage, Demonstrated understanding of instructions, follow-up care, medications, Prescriptions given X 1. 00:05 Patient left the ED. lp1 Signatures: Bernard Rodriguez PA PA jmm Pena, Laura, RN RN lp1 Ibeth Charles RN RN vg1 Laly Lutz
--- NOTE | 2021-09-14 23:31 | EDPHYS ---
Physician Documentation [facility] Name: Tiffany Quinn Age: 51 yrs Sex: Female : 1970 Arrival Date: 09/14/2021 Time: 19:29 Bed Waiting Private MD: ED Physician David Brown HPI: 09/14 23:27 This 51 yrs old Female presents to ER via Ambulatory with complaints of Anxiety. [facility] 23:27 The patient presents to the emergency department with anxiety. Onset: The jmm symptoms/episode began/occurred today. Associated signs and symptoms: Pertinent positives; substance abuse, Pertinent negatives: homicidal ideation, suicide ideation. The patient has experienced similar episodes in the past. Patient denies taking meth today. Is worried someone may want her to . Denies SI, HI. . Historical: - Allergies: 21:08 Haldol; vg1 21:08 Pepcid; vg1 21:08 Toradol; vg1 - Home Meds: 21:08 Atarax Oral [Active]; lithium carbonate 300 mg Oral tab 1 cap 3 times per day [Active]; vg1 Seroquel Oral [Active]; - PMHx: 21:08 Anxiety; Bipolar disorder; vg1 - PSHx: 21:08 breast augmentation; Cholecystectomy; hernia repair; vg1 - Immunization history:: Client reports receiving the 2nd dose of the Covid vaccine. - Social history:: Smoking status: Patient denies any tobacco usage or history of. Patient uses street drugs, Methamphetamine (Meth). ROS: 23:27 Constitutional: Negative for fever, chills, and weight loss, Cardiovascular: Negative jmm for chest pain, palpitations, and edema, Respiratory: Negative for shortness of breath, cough, wheezing, and pleuritic chest pain. 23:27 Psych: Positive for anxiety, Negative for homicidal ideation, suicidal ideation. 23:27 All other systems are negative. Exam: 23:27 Head/Face: atraumatic. Eyes: EOMI, no conjunctival erythema appreciated ENT: Moist jmm Mucus Membranes Neck: Trachea midline, Supple Chest/axilla: Normal chest wall appearance and motion. Cardiovascular: Regular rate and rhythm. No edema appreciated Respiratory: Normal respirations, no respiratory distress appreciated Abdomen/GI: Non distended, soft Back: Normal ROM Skin: General appearance color normal 23:27 Constitutional: The patient appears alert, awake, anxious. 23:27 Musculoskeletal/extremity: ROM: intact in all extremities. 23:27 Skin: Appearance: Color: normal in color. 23:27 Neuro: Orientation: is normal, Mentation: is normal, Memory: is normal. 23:27 Psych: Behavior/mood is cooperative, anxious. Vital Signs: 21:04 BP 140 / 101; Pulse 115; Resp 24; Temp 99.4(O); Pulse Ox 97% ; Weight 130.18 kg; Height vg1 5 ft. 1 in. (154.94 cm); Pain 0/10; 21:04 Body Mass Index 54.23 (130.18 kg, 154.94 cm) vg1 MDM: 23:27 Patient medically screened. [facility] 23:29 Data reviewed: vital signs, nurses notes. Counseling: I had a detailed discussion with pinky the patient and/or guardian regarding: the historical points, exam findings, and any diagnostic results supporting the discharge/admit diagnosis, the need for outpatient follow up, to return to the emergency department if symptoms worsen or persist or if there are any questions or concerns that arise at home. Administered Medications: No medications were administered Disposition: 09/15 06:06 Co-signature as Attending Physician, David Brown MD. [email or web address] Disposition Summary: 09/14/21 23:30 Discharge Ordered Location: Home [facility] Condition: Stable [facility] Diagnosis - Other specified anxiety disorders [facility] Followup: [facility] - With: Private Physician - When: 2 - 3 days - Reason: Recheck today's complaints, Continuance of care, Re-evaluation by your physician Discharge Instructions: - Discharge Summary Sheet [facility] - Managing Anxiety, Adult [facility] Forms: - Medication Reconciliation Form [facility] - Thank You Letter [facility] - Antibiotic Education [facility] - Prescription Opioid Use [facility] Prescriptions: - Hydroxyzine HCl 50 mg Oral Tablet - take 1 tablet by ORAL route every 8 hours As needed; 20 tablet; Refills: 0, [facility] Product Selection Permitted Signatures: Bernard Rodriguez PA PA jmm Garcia, Victoria, RN RN vg1 David Brown MD MD [email or web address]
[2021-09-15 00:10] VITALS: BP 140/101; TEMP 99.4; O2SAT 97
== END 2021-09-15 00:05 | disposition home or self-care (01) ==
LOC: ER 19:22
DX: F41.8 Other specified anxiety disorders (principal); F31.9 Bipolar disorder, unspecified; Z98.82 Breast implant status; Z88.5 Allergy status to narcotic agent; Z88.8 Allergy status to other drugs, medicaments and biological substances
CPT/HCPCS: 99282

== ENCOUNTER 2021-09-15 11:36 | Emergency (ER) | payer OTHER ==
--- OUTSIDE RECORDS SUMMARY | 2021-09-15 11:44 | XMS REPORT | Continuity of Care Document ---
:1970 Author Organization [facility] t Address [address] [place] [address] Care Team Providers Name Role Phone UNKNOWN [...] Policy Number Effective Date Expiration Date S [facility] OF [place] - [id number] 2020 [place] 00:00:00 (MEDICARE REPLACEMENT/ADVANT AGE - HMO) Problems Condition Condition Condition Status Onset Resolution Last Treating Co mments Source Name Details Category Date Date Treatment Clinician Date LOW PB Diagnosis Active 2019-01-22 Mem oria 01-21 01:52:00 l LOW PB 00:00: Yonis 00 Active 01/21/2019 [place] INFECTIOUS Diagnosis Active 2019-02-06 Memoria GASTROENTE 01-21 08:58:00 l RITIS AND 00:00: [place] COLITIS INFECTIOUS 00 GASTROENTE RITIS AND COLITIS Active 01/21/2019 [facility] Irregular Irregular Disease Active Uni vers menstrual menstrual 8-15 ity of cycle cycle 00:00: [address] Skin Skin Disease Active Univers lesion lesion 8-15 ity of 00:00: [address] Psychiatri Psychiatri Disease Active U nivers c disorder c disorder 8-15 it y of 00:00: [address] Well woman Well woman Disease Active U nivers exam with exam with 8-15 ity of routine routine 00:00: [place] gynecologi gynecologi 00 Me dical nicky exam nicky exam Branch INFECTIOUS Diagnosis Active 2019-02-06 Memoria GASTROENTE 08:58:00 l RITIS AND Yonis COLITIS, INFECTIOUS GASTROENTE RITIS AND COLITIS, Active [facility] Allergies, Adverse Reactions, Alerts Allergy Allergy Status Severity Reaction(s) Onset Inactive Treating Comm ents Source Name Type Date Date Clinician Phenerga Phenerga Active Memori a n n l Yonis NO KNOWN Drug Active Univers ALLERGIE Class ity of S [facility] Social History Social Habit Start Date Stop Date Quantity Comments Source History of Cigarette Smoker Universi ty of tobacco use [facility] Tobacco Comment 2-3 cigs a day [facility] Exposure to Not sure [place] of SARS-CoV-2 [facility] (event) [place] Tobacco use and 2016-06-08 2016-06-08 [facility]00 00:00:00 [facility] Alcohol intake 2016-06-08 2016-06-08 0 /d University of 00:00:00 00:00:00 [facility] Sex Ass[birth year] At [birth year] Universit y of 00:00:00 00:00:00 [facility] Smoking Status Start Date Stop Date Source Social History 2019-01-22 05:00:12 [facility] Her urena Current some day smoker 2016-06-08 00:00:00 [facility] Medications Ordered Filled Start Stop Current Ordering Indication Dosage Frequency Signature Comments Components Source Medication Medication Date Date Medication? Clinician (SIG) Name Name cefTRIAXone 2020-10- No 1000mg 1,000 mg, Univers (ROCEPHIN) 17 11-17 IV ity of 1,000 mg in 08:30: 08:01 [place], [place] NaCl 0.9% 00 :00 ONCE, 1 [...] 09/09/21 at 2330, RANDA amoxicillin 2020-10 Yes [id number] 500mg Take 1 Univers 500 mg 11-10 capsule by ity of capsule 00:00: mouth 3 [place] 00 (three) Medical times Branch daily. ondansetron 2019-10- No 4mg 4 mg, [facility] ers (ZOFRAN-ODT 12-01 Oral, ity of ) 15:15: 14:16 ONCE, 1 [place] disintegrat 00 :00 dose, Mon Med ical ing tablet 09/30/20 at [facility] 4 mg 0915, Routine ondansetron 2019-10- No 4mg 4 mg, [facility] ers (ZOFRAN-ODT 12-01- Oral, ity of ) 14:30: 13:32 ONCE, 1 [place] disintegrat 00 :00 dose, Mon Med ical ing tablet 09/30/20 at [facility] 4 mg 0830, Routine ondansetron 2019-10 Yes [id number] 4mg Take 1 Univers 4 mg 2-07 tablet by ity of disintegrat 00:00: mouth [place] ing tablet 00 every 8 Medica l (eight) Branch hours as needed for Nausea and Vomiting (N/V). ondansetron 2019-10 Yes [id number] 4mg Take 1 Univers 4 mg 2-07 tablet by ity of disintegrat 00:00: mouth [place] ing tablet 00 every 8 Medica l (eight) Branch hours as needed for Nausea and Vomiting (N/V). ondansetron 2019-10 Yes [id number] 4mg Take 1 Univers 4 mg 2-07 tablet by ity of disintegrat 00:00: mouth [place] ing tablet 00 every 8 Medica l (eight) Branch hours as needed for Nausea and Vomiting (N/V). ondansetron 2019-10 Yes [id number] 4mg Take 1 Univers 4 mg 2-07 tablet by ity of disintegrat 00:00: mouth [place] ing tablet 00 every 8 Medica l (eight) Branch hours as needed for Nausea and Vomiting (N/V). ciprofloxac 2019 Yes 500 mg = 1 Memoria in 500 mg 4-04 tab, PO, l oral tablet 17:35: [id number], X Yonis 00 4 day, # 8 [...] 4-04 tab, PO, l oral tablet 17:35: [id number], X [place] 00 4 day, # 8 tab, 0 [...] s with feeding tube less than 14 [place] (Dobhoff, J-tube etc) and pediatric and patients. Potassium No Notes: Memori a Chloride 4-03 (Same as: l 13:26: K-Dur 20) [place] "Do Not Crush" Give with food and full glass of water For patients unable to swallow tablet, dissolve in one half glass of water. Allow about 2 minutes for the tablets to disintegra te. Stir before giving to prepare slurry and administer . Please exclude Patient s with feeding tube less than 14 [place] (Dobhoff, J-tube etc) and pediatric and patients. Strattera No 0.5 mg/kg, Me moria 01-24 Route: PO, l 14:00: QAM, Yonis Dosing Weight 75, kg, Start date: 01/24/19 9:00:00 CDT, Duration: 30 day, Stop date: 02/22/19 9:00:00 CDT Strattera 0 No 0.5 mg/kg, Me moria 402 Route: PO, l 14:00: QAM, [place] 00 Dosing Weight 75, kg, Start date: [...] Memoria 4- (Same as: l 15:00: Flagyl) [place] 00 Take with food/ avoid alcohol Cipro No Notes: February Memori a 4- interfere l 15:00: w/enteral [place] 00 feedings - Take 1 hr before [...] PO, ONCE, l mEq oral 14:20: 0 [place] tablet, 00 Refill(s) extended release Metronidazo No 500 mg, Mem oria le 500 MG 4-01 PO, l Oral Tablet 14:20: [id number], 0 [place] [Flagyl] 00 Refill(s) Ciprofloxac No 500 mg, Mem oria in 500 MG 01 PO, l Oral Tablet 14:20: [id number], 0 [place] [Cipro] 00 Refill(s) potassium Yes 40 mEq, Memor ia chloride 20 -01 PO, ONCE, l mEq oral 14:20: 0 [place] tablet, 00 Refill(s) extended release Metronidazo No 500 mg, Mem oria le 500 MG 4-01 PO, l Oral Tablet 14:20: [id number], 0 [place] [Flagyl] 00 Refill(s) Ciprofloxac No 500 mg, Mem oria in 500 MG 4-01 PO, l Oral Tablet 14:20: [id number], 0 Yonis [Cipro] 00 Refill(s) Potassium No [...] s with feeding tube less than 14 [place] (Dobhoff, J-tube etc) and pediatric and patients. [...] s with feeding tube less than 14 [place] (Dobhoff, J-tube etc) and pediatric and patients. [...] tab, PO, l Tablet 21:08: BID, 0 [place] [Risperdal] 00 Refill(s) Strattera Yes 0.5 mg/kg, [...] tab, PO, l Tablet 21:08: BID, 0 [place] [Risperdal] 00 Refill(s) Zosyn No Notes: Memoria [...] oria 3-31 to exceed l 15:03: 400mg/day. [place] 00 (Same As: Ultram) Tramadol No Notes: [...] 01-22 Route: IM, l 09:47: Drug form: [place] 00 PDR/INJ, PRN, Dosing Weight 75.994, kg, [...] 01-22 Route: IM, l 09:47: Drug form: [place] PDR/INJ, PRN, Dosing Weight 75.994, kg, PRN Blood Glucose Results, Start date: 01/22/19 4:47:00 CDT, Duration: 30 day, Stop date: 02/21/19 4:46:00 CDT Dextrose 2018- No 12.5 gm, Memor ia 50% Syringe 3-31 25 mL, l 09:47: Route: [place] 00 IVP, Drug Form: INJ, Dosing Weight [...] moria IV 3-31 1,000 l 08:52: ml/hr, [place] 00 Infuse Over: 1 hr, Route: IV, [...] 0.9% 3-31 Same as: l 04:52: BD [place] Posiflush Sterile NS (Bolus) No 1,000 mL, Me moria IV 3-31 1,000 l 04:51: ml/hr, [place] 00 Infuse Over: 1 hr, Route: IV, 1,000, Drug form: INJ, ONCE, Priority: STAT, Dosing Weight 75.994 kg, Start date: 01/21/19 23:51:00 CDT, Stop date: 01/21/19 23:51:00 CDT NS (Bolus) No 1,000 mL, Me moria IV 01-22 1,000 l 04:51: ml/hr, [place] 00 Infuse Over: 1 hr, Route: IV, [...] of mg tablet 14:02: mouth [place] [address] every 6 Medical (six) Branch hours as needed. CLONAZEPAM 2016-0 Yes Take by Uni vers (KLONOPIN 8-15 mouth. ity of ORAL) 14:02: [address] Branch CITALOPRAM 2016-0 Yes Take by Uni vers HYDROBROMID 8-15 mouth. ity of E 14:02: [place] (CITALOPRAM 27 Medical ORAL) Branch ibuprofen 2016-0 Yes 200mg Take 200 Uni vers (ADVIL) 200 8-15 mg by ity of mg tablet 14:02: mouth [place] [address] every 6 Medical (six) Branch hours as needed. CLONAZEPAM 2016-0 Yes Take by Uni vers (KLONOPIN 8-15 mouth. ity of ORAL) 14:02: [address] Branch CITALOPRAM 2016-0 Yes Take by Uni vers HYDROBROMID 8-15 mouth. ity of E 14:02: [place] (CITALOPRAM 27 Medical ORAL) Branch ibuprofen 2016-0 Yes 200mg Take 200 Uni vers (ADVIL) 200 8-15 mg by ity of mg tablet 14:02: mouth [place] [address] every 6 Medical (six) Branch hours as needed. CLONAZEPAM 2016-0 Yes Take by Uni vers (KLONOPIN 8-15 mouth. ity of ORAL) 14:02: [place] [address] Medical Branch CITALOPRAM 2016-0 Yes Take by [...] 2021-09-10 08:01:00 138 mm[Hg] Univer sity of [facility] Diastolic blood 2021-09-10 08:01:00 97 mm[Hg] Unive rsity of [facility] Heart rate 2021-09-10 08:01:00 87 /min [facility] Respiratory rate 2021-09-10 08:01:00 20 /min [facility] Oxygen saturation in 2021-09-10 08:01:00 98 /min University of Arterial blood by [place] [employer] [facility] Pulse oximetry Branch Body temperature 2021-09-10 04:28:51 37.17 Ruthann [facility] Body height 2021-09-10 04:26:00 154.9 cm [facility] Body weight 2021-09-10 04:26:00 81.647 kg [facility] BMI 2021-09-10 04:26:00 34.01 kg/m2 [facility] Systolic blood 2021-09-09 20:06:00 150 mm[Hg] Univer sity of [facility] Diastolic blood 2021-09-09 20:06:00 89 mm[Hg] Unive rsity of [facility] Heart rate 2021-09-09 20:06:00 108 /min [facility] Body temperature 2021-09-09 20:06:00 37.22 Ruthann [facility] Respiratory rate 2021-09-09 20:06:00 18 /min [facility] Oxygen saturation in 2021-09-09 20:06:00 99 /min University of Arterial blood by [employer] nicky Pulse oximetry Branch Body weight 2021-09-09 [...] 98 /min University of Arterial blood by [facility] nicky Pulse oximetry Branch Body [...] 98 /min University of Arterial blood by [facility] nicky Pulse oximetry Branch Body [...] Systolic (mm Hg) 2019-01-28 01:16:00 Estrada rial [place] Diastolic (mm Hg) 2019-01-28 01:16:00 Mem orial [place] Heart Rate 2019-01-28 01:16:00 Memorial Yonis Respitory Rate 2019-01-28 01:16:00 Memori al [place] Systolic (mm Hg) 2019-01-27 20:42:00 Estrada rial [place] Diastolic (mm Hg) 2019-01-27 20:42:00 Mem orial Yonis Heart Rate 2019-01-27 20:42:00 Memorial [place] Respitory Rate 2019-01-27 20:42:00 Memori al [place] Temperature Oral (F) 2019-01-27 20:42:00 98.5 F Memorial [place] Systolic (mm Hg) 2019-01-27 17:00:00 Estrada rial Yonis Diastolic (mm Hg) 2019-01-27 17:00:00 Mem orial [place] Temperature Oral (F) 2019-01-27 17:00:00 98.5 F Memorial [place] Heart Rate 2019-01-27 17:00:00 [facility] [place] Respitory Rate 2019-01-27 [facility] [place] Height 2019-01-22 14:35:00 157.48 cm [facility] BMI Calculated 2019-01-22 14:35:00 [facility] [place] Weight 2019-01-22 14:35:00 [facility] [place] Weight 2019-01-22 04:34:00 [facility] Procedure Date / Time Performing Clinician Source Performed URINALYSIS 2021-09-10 06:03:00 Neena Bradford [facility] URINE DRUG (IMMUNOASSAY) 2021-09-10 06:03:00 Neena Bradford [facility] SCREEN W/O REFLEX XR CHEST 1 VW 2021-09-10 04:57:30 Neena Bradford [facility] CREATINE KINASE 2021-09-10 04:39:00 Neena Bradford [facility] MAGNESIUM 2021-09-10 04:39:00 Neena Bradford [facility] TROPONIN I 2021-09-10 04:39:00 Neena Bradford [facility] COMP. METABOLIC PANEL 2021-09-10 04:39:00 Neena Bradford [facility] ([id number]) Medical [place] CBC WITH DIFF 2021-09-10 04:39:00 Neena Bradford [facility] PROTHROMBIN TIME / INR 2021-09-10 04:39:00 Neena Bradford [facility] ACTIVATED PARTIAL 2021-09-10 04:39:00 Neena Bradford [facility] N-TERMINAL PRO-BNP 2021-09-10 04:39:00 Neena Bradford [facility] COVID-19 (ID NOW RAPID 2021-09-10 04:39:00 Neena Bradford [facility]) Medical Branch TROPONIN I 2021-09-09 21:49:00 [facility] COMP. METABOLIC PANEL 2021-09-09 21:49:00 RumfordLuanne [facility] ([id number]) Medical Branch LITHIUM 2021-09-09 21:49:00 [facility] CBC WITH DIFF 2021-09-09 21:49:00 [facility] CONSENT/REFUSAL FOR 2021-09-09 19:51:22 Doctor Unassigned, No Un [facility] DIAGNOSIS AND TREATMENT Name Medical Branch URINALYSIS 2020-09-30 13:27:00 Jackson, [facility] ADC,CLC OR LCC ONLY - 2020-09-30 13:27:00 JacksonChuy aleman [facility] INFLUENZA A & B DIRECT Medical B ranch ANTIGEN COVID-19 (ID NOW RAPID 2020-09-30 13:27:00 JacksonChuy [facility]) Medical Branch Encounters Start End Encounter Admission Attending Care Care Encounter Source Date/Time Date/Time Type Type Clinicians Facility Department ID 2021-09-08 Outpatient Humaira-Mbayo VFP VFP [id number] [place] 02:24:16 _A_ [id number] Family Practic e 2021-09-07 Outpatient Humaira-Mbayo VFP VFP [id number] [place] 22:13:27 _A_AH 53952 Family Practic e 2021-09-07 Outpatient Humaira-Mbayo VFP VFP [id number] [place] 13:23:42 _A_ [id number] Family Practic e 2021-09-06 Outpatient Humaira-Mbayo VFP VFP [id number] [facility] 04:23:58 _A_AH 34117 Family Practic e 2021-09-05 Outpatient Bernadine [facility] [id number] [facility] 19:22:48 _A_AH 25400 Family Practic e 2019-01-22 Inpatient E [facility] MED [id number] [facility] W 04:39:00 2021-09-09 2021-09-10 Emergency Sanchez [facility] [id number] Univers 22:20:00 03:02:00 Neena JIMENEZ 350.1.13.10 i ty of [place] 4.2.7.2.686 [facility] [id number] [address] 2021-09-09 2021-09-10 Emergency X SANCHEZ [facility] ERT [id number] Univers 22:20:00 03:02:00 NEENA cherrie [facility] 2021-09-09 2021-09-10 Emergency X SANCHEZ [facility] ERT [id number] Univers 22:20:00 03:02:00 NEENA tubbs [facility] 2021-09-09 2021-09-09 Emergency Julia [facility] [id number] Univers 14:07:00 17:35:00 Luanne JIMENEZ 350.1.13.10 i ty of [place] 4.2.7.2.686 [facility] [id number] [address] 2021-09-09 2021-09-09 Orders Doctor BELKYS [id number] Univers 00:00:00 00:00:00 Only Unassigned, LANA 350.1.13.10 ity of [place] [facility] 4.2.7.2.686 Joe [id number] [facility] 009 Branch 2020-09-30 2020-09-30 Emergency Singer CTSARAI [id number] 07:22:00 08:18:00 Chuy Jimenez 350.1.13.10 [place] 4.2.7.2.686 [place] [id number] 2020-09-30 2020-09-30 Emergency Singer CTSARAI [id number] Univers 07:22:00 08:18:00 Chuy Jimenez 350.1.13.10 i ty lev [place] 4.2.7.2.686 [facility] [id number] [place] [address] Branch 2020-09-30 2020-09-30 Emergency X SINGER [facility] ERT [id number] Univers 07:22:00 07:22:00 CHUY tubbs [facility] 2020-03-04 2020-03-14 Inpatient 3 Johnnie Eldridgekeel [facility] [id number] 15:38:00 15:25:00 Chente [facility] 2019-01-22 2019-01-28 Inpatient [facility] [id number] Memoria 04:33:00 04:40:00 r Yonis 00 l [facility] 2018-02-21 2018-02-20 Inpatient E [facility] [id number] [id number] 14:48:00 13:18:00 [facility] Results Test Description Test Time Test Comments Results Result Comments Source TROPONIN I 2021-09-10 05:26:53 Test Item Value Reference Range Interpretation Comme nts TROPONIN I (test code = 0.003 ng/mL See_Comment [Au tomated message] The 3767976171) system which ge nerated this result tra [...] biotin. Lab Interpretation Normal (test code = 41523-8) [id number] 05:24:16 Test Item Value Reference Range Interpretation Comments NT-proBNP (test code 35 pg/mL See_Comment [Autom ated = 2998956923) message] The system which generated this result transmitted reference range : <=125. The reference range was not used to interpret this result as normal/abnormal . PERRY (test code = PERRY) Biotin has been reported to cause a negative bias, interpret results relative to patient's use of biotin. Lab Interpretation Normal (test code = 98031-4) [facility]2021-[facility]-17 05:16:51 Test Item Value Reference Range Interpretation Comments MAGNESIUM (test code = 5624601675) 1.8 mg/dL 1.7-2.4 Lab Interpretation (test code = Normal 09130-9) [facility]. METABOLIC PANEL ([id number])2021-09-10 05:16:31 Test Item Value Reference Range Interpretation Comments NA (test code = 139 mmol/L 135-145 3470977577) K (test code = 4.0 mmol/L 3.5-5.0 1980281789) CL (test code = 108 mmol/L 98-108 6974768684) CO2 TOTAL (test code 25 mmol/L 23-31 = 2507378354) AGAP (test code = 2-16 4225488809) BUN (test code = 14 mg/dL 7-23 4766495564) GLUCOSE (test code = 88 mg/dL 70-110 6044508567) CREATININE (test code 0.89 mg/dL 0.50-1.04 = 7450815842) TOTAL BILI (test code 0.5 mg/dL 0.1-1.1 = 9404167565) CALCIUM (test code = 10.3 mg/dL 8.6-10.6 4930704460) T PROTEIN (test code 6.9 g/dL 6.3-8.2 = 9490846829) ALBUMIN (test code = 4.3 g/dL 3.5-5.0 3653697241) ALK PHOS (test code = 72 U/L 34-122 5253619916) ALTv (test code = 17 U/L 5-35 1742-6) AST(SGOT) (test code 29 U/L 13-40 = 5870754227) eGFR (test code = mL/min/1.73m2 9706609802) PERRY (test code = PERRY) Association of [...] or urine or abnormalities in imaging tests). [facility]AT[facility] [id number] 05:16:16 Test Item Value Reference Range Interpretation Comments CK (test code = 6288556973) 267 U/L 33-194 H Lab Interpretation (test code = Abnormal 96708-8) [facility] THRMPLAS [id number] 05:05:32 Test Item Value Reference Range Interpretation Comments APTT Patient (test See_Comment [Automat ed code = 3173-2) message] The system which generated this result transmitted reference range : 23 - 38 Seconds . The reference range was not used to interpr et this result as normal/abnormal . PERRY (test code = PERRY) The [facility] patient population mean normal value for aPTT is 30 seconds. Lab Interpretation Normal (test code = 59584-2) [facility] / [id number] 05:03:30 Test Item Value Reference Range Interpretation [...] tions. Lab Interpretation (test Normal code = 66005-9) [facility] WITH [id number] 04:57:13 Test Item Value Reference Range Interpretation Comments WBC (test code = See_Comment [Automated 6990-2) message] The sy stem which generated this [...] RDW-SD (test code = 41.2 fL 39.0-49.9 40583-4) RDW-CV (test code = 13.0 % 12.0-15.5 788-0) PLT (test code = See_Comment H [Automated 777-3) message] The sy stem which generated this result transmitted reference range : 166 - 358 10*3/ ?L. The reference r katie was not used to interpret this result as normal/abnormal . MPV (test code = 9.6 fL 9.5-12.9 44272-4) NRBC/100 WBC (test See_Comment [Automat ed code = 6609360301) message] The system which generated this result transmitted reference range : 0.0 - 10.0 /100 WBCs. The refer ence range was not u sed to interpret th is result as normal/abnormal . NRBC x10^3 (test code <0.01 See_Comment [Auto mated = 8147580201) message] The s ystem which generated this result transmitted reference range : 10*3/?L. The reference range was not used to interpret this result as normal/abnormal . GRAN MAT (NEUT) % 61.9 % (test code = 770-8) IMM GRAN % (test code 0.30 % = 6783078193) LYMPH % (test code = 26.0 % 736-9) MONO % (test code = 9.5 % 5905-5) EOS % (test code = 1.6 % 713-8) BASO % (test code = 0.7 % 706-2) GRAN MAT x10^3(ANC) 5.91 10*3/uL 1.88-7.09 (test code = 8717443968) IMM GRAN x10^3 (test 0.03 10*3/uL 0.00-0.06 code = 4993994384) LYMPH x10^3 (test code 2.48 10*3/uL 1.32-3.29 = 731-0) MONO x10^3 (test code 0.91 10*3/uL 0.33-0.92 = 742-7) EOS x10^3 (test code = 0.15 10*3/uL 0.03-0.39 711-2) BASO x10^3 (test code 0.07 10*3/uL 0.01-0.07 = 704-7) Lab Interpretation Abnormal (test code = 67633-6) [facility] [id number] 22:24:55 Test Item Value Reference Interpretation Comments Range TROPONIN I (test 0.002 ng/mL See_Comment [Automated code = 8245224919) message] The system which generated this result [...] biotin. Lab Interpretation Normal (test code = 46509-6) [facility]2021-[facility]-16 22:24:34 Test Item Value Reference Range Interpretation Comments [place] (test code = <0.2 0.6-1.2 L 8826905430) PERRY (test code = PERRY) Toxic Range: ? Greater than 1.2 mmol/L Lab Interpretation (test Abnormal code = 35597-1) [facility]ABOLIC PANEL ([id number])2021-09-09 22:13:54 Test Item Value Reference Range Interpretation Comments NA (test code = 139 mmol/L 135-145 3024735867) K (test code = 4.0 mmol/L 3.5-5.0 5634514162) CL (test code = 105 mmol/L 98-108 7582888985) CO2 TOTAL (test code 26 mmol/L 23-31 = 5257556002) AGAP (test code = 2-16 9705988751) BUN (test code = 11 mg/dL 7-23 5130161875) GLUCOSE (test code = 109 mg/dL 70-110 6161800744) CREATININE (test code 0.71 mg/dL 0.50-1.04 = 8326584991) TOTAL BILI (test code 0.6 mg/dL 0.1-1.1 = 0378314692) CALCIUM (test code = 10.4 mg/dL 8.6-10.6 3669272516) T PROTEIN (test code 7.6 g/dL 6.3-8.2 = 0362791590) ALBUMIN (test code = 4.7 g/dL 3.5-5.0 4541941347) ALK PHOS (test code = 78 U/L 34-122 2463419997) ALTv (test code = 19 U/L 5-35 2-6) AST(SGOT) (test code 28 U/L 13-40 = 0853681623) eGFR (test code = mL/min/1.73m2 9979505854) PERRY (test code = PERRY) Association of [...] or urine or abnormalities in imaging tests). [facility] WITH [id number] 22:03:32 Test Item Value Reference Range Interpretation Comments WBC (test code = See_Comment [Automated 6561-2) message] The sy stem which generated this [...] RDW-SD (test code = 40.2 fL 39.0-49.9 78826-9) RDW-CV (test code = 12.9 % 12.0-15.5 788-0) PLT (test code = See_Comment H [Automated 777-3) message] The sy stem which generated this result transmitted reference range : 166 - 358 10*3/ ?L. The reference r katie was not used to interpret this result as normal/abnormal . MPV (test code = 9.4 fL 9.5-12.9 L 23101-8) NRBC/100 WBC (test See_Comment [Automat ed code = 0945091264) message] The system which generated this result transmitted reference range : 0.0 - 10.0 /100 WBCs. The refer ence range was not u sed to interpret th is result as normal/abnormal . NRBC x10^3 (test code <0.01 See_Comment [Auto mated = 0792710702) message] The s ystem which generated this result transmitted reference range : 10*3/?L. The reference range was not used to interpret this result as normal/abnormal . GRAN MAT (NEUT) % 67.1 % (test code = 770-8) IMM GRAN % (test code 1.00 % = 5766900065) LYMPH % (test code = 21.4 % 736-9) MONO % (test code = 7.9 % 5905-5) EOS % (test code = 1.8 % 713-8) BASO % (test code = 0.8 % 706-2) GRAN MAT x10^3(ANC) 7.35 10*3/uL 1.88-7.09 H (test code = 0815300635) IMM GRAN x10^3 (test 0.11 10*3/uL 0.00-0.06 H code = 4769213711) LYMPH x10^3 (test code 2.34 10*3/uL 1.32-3.29 = 731-0) MONO x10^3 (test code 0.86 10*3/uL 0.33-0.92 = 742-7) EOS x10^3 (test code = 0.20 10*3/uL 0.03-0.39 711-2) BASO x10^3 (test code 0.09 10*3/uL 0.01-0.07 H = 704-7) Lab Interpretation Abnormal (test code = 44433-5) [facility] - INFLUENZA A & B DIRECT RDNRCVL1561-49-10 14:04:00 Test Item Value Reference Range Interpretation Comments Influenza A (test code = 85046-0) Negative Negative Influenza B (test code = 25773-8) Negative Negative Lab Interpretation (test code = Normal 93279-1) [facility] (ID NOW RAPID TESTING)2020-09-30 14:03:00 Test Item Value Reference Range Interpretation Comments SARS-CoV-2 Rapid ID NOW Not Detected Not Detected (test code = 59215-8) PERRY (test code = PERRY) ID NOW COVID-19 Assay is an isothermal nucleic acid amplification test intended for the qualitative detection of nucleic acid from SARS-CoV-2 viral RNA in nasopharyngeal (PERSONAL SUPPORT WORKER) specimens. It is used under Emergency Use [...] indicated. Lab Interpretation Normal (test code = 75909-8) [facility] 13:55:00 Test Item Value Reference Range Interpretation Comments APPEARANCE (test code = Hazy Clear A 9218464430) COLOR (test code = Yellow Yellow 5117276302) PH (test code = 4.8-8.0 5350117496) SP GRAVITY (test code = 1.003-1.030 1708664070) GLU U QUAL (test code = Normal Normal 5546354952) BLOOD (test code = Negative Negative 5924681587) KETONES (test code = 5 mg/dL Negative A 4707429323) PROTEIN (test code = Negative Negative 2887-8) UROBILIN (test code = 2.0 mg/dL Normal A 7541772415) BILIRUBIN (test code = Negative Negative 1852660518) NITRITE (test code = Negative Negative 6081390565) LEUK ROZINA (test code = 25/uL Negative A 6694709814) RBC/HPF (test code = See_Comment [Autom ated message] 3620509856) The system [employer] generated this result transmit ngozi reference range : 0 - 3 HPF. The refe rence range was not u sed to interpret th is result as normal/abnormal . WBC/HPF (test code = See_Comment [Autom ated message] 1630413852) The system [employer] generated this result transmit ngozi reference range : 0 - 5 HPF. The refe rence range was not u sed to interpret th is result as normal/abnormal . BACTERIA (test code = Few Negative A 9388225749) MUCOUS (test code = Slight Negative LPF A 5648358644) SQ EPITH (test code = HPF 1212664522) Lab Interpretation (test Abnormal code = 34659-5) [facility] HospitalRPR Rrnsecgdixh4515-36-81 16:42:24 Test Item Value Reference Range Interpretation [...] = 10-24-2020 N Expiration Dt) Thyroid Stimulating Qgpvaro2102-89-91 08:35:16 Test Item Value Reference Range Interpretation Comments TSH (test code = TSH) 1.170 mIU/mL 0.270-4.200 Lipid Gqhbr4570-32-90 08:21:19 Test Item Value Reference Range Interpretation Comments Cholesterol Total 254 mg/dL 0-200 H RISK OF HE ART (test code = DISEASEPublishe d by Cholesterol Total) [place] Cathie lyte Optimal Borderl ine [...] calculation is LDL/HDL Ratio=L DL Calc/HDL Chol MHCOWANJNOED9893-35-34 08:24:008.6[facility] HuvbtlbIPNBOIYQQVCC3602-99-99 08:24:10094Awwxhvbb SyyiakcXJJHDEXUWCCT5009-99-35 08:24:0027[facility] JUCXXCKHBQCJ4223-59-42 08:24:67206Bltbcbfs ZxvecndAMFCUEKVOPPE5460-71-05 08:24:003.6[facility] KxpdgbePKIMGBDPDCPS2229-30-33 08:24:000.70[facility] RDQGKPBOGOUW7045-15-03 08:24:008.4[facility] AkuzhtbYKHLRVIORJUH7020-78-80 08:24:25720Udlmhuii UltgiidZHOBHVKEBCQP9267-47-88 08:24:0086[facility] EAFIFAZHMMVT1157-02-32 08:24:006[facility] OdlylmmDTGGPNOVKR5994-62-81 08:24:00 11.6[facility] XabuaxzVVOYPHBPDB5349-40-09 08:24:003.78[facility]annHEMATOLOGY 2019-01-26 08:24:0013.3[facility] QrjdbafNRSMADADHV7120-63-21 08:24:0034.0[facility] EvrlkdyIEYDYNVSWQ9721-07-62 08:24:006.3[facility] FmekobpLEIYOLMBCA9652-69-90 08:24:00 Test Item Value Reference Range Interpretation Comments MCH (test code = MCH) 30.7 pg 27.0-31.0 [facility] RdpabjqLWNVLZQQST4661-79-91 08:24:0090.3[facility]annHEMATOLOGY 2019-01-26 08:24:0034.2[facility] LevfzkeCKUXSHTCDD9494-44-67 08:24:16651Euonrjmv QncmvrjWKWQSQLJLG6007-56-49 08:24:007.5[facility] EehlsfsAMNSBMXARIHV3060-15-90 08:24:008.6[facility] AufrvwpUOKKBNMETAPX3792-88-83 08:24:47239Kvstyyvj Yonis KPCOKZSCDJHB7734-24-01 08:24:0027[facility] JpjvmvrKUSSVXXNQKNB3772-74-52 08:24:00 139[facility] WzapjaeAPXSNULZPJEE0247-39-03 08:24:003.6[facility] WIDCFPWZJXWM3050-89-50 08:24:000.70[facility] CaaecrdEIURWSGJVMDJ7630-69-13 08:24:008.4[facility] YyhhtcdPPKATVQVEZWW9111-53-92 08:24:16856Icyaltfq Y[facility] MTALMZJGXQWG8647-32-57 08:24:0086[facility] YknffcjTKHUJZTWMOCU9577-45-73 08:24:00 6[facility] EnojvmsVPGQSLBISP8584-77-41 08:24:0011.6[facility]annHEMATOLOGY 2019-01-26 08:24:003.78[facility] IabqsikVCCCTILAFB4959-97-57 08:24:0013.3[facility] YcwzcydUMGGVOGWLK5387-36-90 08:24:0034.0[facility] UkhwevsWLTNLNRYIO8688-48-45 08:24:006.3[facility] JobdmybDBSZJSTCKG6429-28-51 08:24:00 Test Item Value Reference Range Interpretation Comments MCH (test code = MCH) 30.7 pg 27.0-31.0 [facility] ZsnapycRXYSQCOFUP9425-87-54 08:24:0090.3[facility]annHEMATOLOGY 2019-01-26 08:24:0034.2[facility] RaastgfJAWGBWBJMT8247-13-49 08:24:56044Qdrrmlaf VneqnrdSSEPFCYJPB7292-48-44 08:24:007.5[facility] HermannCHEM QFKVW3854-68-37 09:14:74224Iitkmvne HermannCHEM PNRJE5526-55-38 09:14:008.5[facility]annCHEM LXUTP6059-13-81 09:14:0013.3[facility]annCHEM LXQIF1205-18-65 09:14:0024 [facility]annCHEM VZCQI8148-86-07 09:14:57078Bbsklenv HermannCHEM PANEL 2019-01-25 09:14:0081[facility]annCHEM DKAOK4386-98-00 09:14:002[facility]annCHEM ZNYZZ1574-31-84 09:14:003.3[facility]annCHEM GGNSU6057-21-05 09:14:000.60[facility]annCHE[facility] THBMY0865-12-71 09:14:34019Ylifqwrw HermannCHEM NRIGB1888-12-28 09:14:86728Uodsegsn HermannCHEM QSHIR1656-57-80 09:14:008.5 [facility]annCHE[facility] GQMOJ4542-61-30 09:14:0013.3[facility]annCHEM PANEL 2019-01-25 09:14:0024[facility]annCHEM UFHOL3697-56-79 09:14:24743Licsemwr HermannCHEM NPMLN3334-68-40 09:14:0081[facility]annCHEM EIFNV5027-31-94 09:14:002[facility]annCHEM LBAAV6704-52-35 09:14:003.3[facility]annCHEM TYWMF8924-43-88 09:14:000.60[facility]annCHEM VTKKF4783-43-60 09:14:31490 [facility]annMOLECULAR EWHRPELNUM6026-59-96 16:22:00Negative (01/23/19 11:22 AM)[facility] HermannMOLECULAR RVNINAINLZ3113-47-02 16:22:00Negative (01/23/19 11:22 AM)[facility]annCHEM ZWTOK2254-25-25 15:42:002.76[facility]annCHEM PANEL 2019-01-23 15:42:002.76[facility]annCHEM FHTQP0634-54-99 12:32:000.9[facility]annCHEM KIMVC1316-57-32 12:32:000.9[facility]annCHEM FUAMI2036-36-53 10:50:002.0[facility]annCHEM YWBDD5377-96-32 10:50:79203Mmgpblci HermannCHEM PWIVC3932-50-06 10:50:0023[facility]annCHEM SDYPK2275-01-13 10:50:66214 [facility]annCHEM CNKJS7451-06-30 10:50:003.1[facility] HermannCHEM PANEL 2019-01-23 10:50:72087Iqxsbtpb HermannCHEM VBFHU8543-37-20 10:50:005[facility]annCHEM WXFLR1630-75-00 10:50:000.50[facility]annCHEM EMQGN3832-20-07 10:50:007.8[facility]annCHEM GMNBK3813-79-04 10:50:0083[facility]annCHEM PSNZZ9927-80-86 10:50:0010.1[facility] AppnoblUOIEMLJHPU0583-72-13 10:50:000.2 [facility] RojmtcqUGVSPVDXRY9510-15-67 10:50:000.8[facility]annHEMATOLOGY 2019-01-23 10:50:005.5[facility] KbfgactQDSRBHLVVB1171-08-50 10:50:002.2[facility] JwxoltxCHIOJEQJPG8243-30-20 10:50:000.1[facility] AddhvbyHTGQWOBKTS8201-14-99 10:50:0063.6[facility] WfqgvqpFHEJOZBANI4487-26-04 10:50:008.9[facility] WJVKLQRZWH8227-88-74 10:50:002.3[facility] JfjxpsfQZEYFZPIGZ4143-66-16 10:50:00 Normal (01/23/19 5:50 AM)[facility] RgyxubzNNRHYRKEDA2794-71-78 10:50:00Normal (01/23/19 5:50 AM)[facility] GuukrklEKVOWDMHTV1846-78-51 10:50:0025.1[facility] SbsebmrJFWXCYXDGV6368-54-92 10:50:0013.1[facility] FkobyavYQQYMKYGFE7251-51-84 10:50:04326Qxflekiv QjoxyquMIQFEMJKTP7134-20-14 10:50:007.7[facility] OYWJJSNBCB2314-80-81 10:50:008.6[facility] TmygrrlETMKVVKGSF1750-74-09 10:50:00 10.0[facility] KibyknaJPGKGJTLXF8581-68-89 10:50:0034.[facility] HermannHEMATOLOGY 2019-01-23 10:50:0028.7[facility] YcrltnxUQCLAFEVIB3868-45-90 10:50:0087.8[facility] KztadziAAJIQQVXBQ6828-70-26 10:50:00 Test Item Value Reference Range Interpretation Comments MCH (test code = MCH) 30.4 pg 27.0-31.0 [facility] NepufetMAVELPCPFG1487-53-78 10:50:003.27[facility] HermannHEMATOLOGY 2019-01-23 10:50:42481Qioaeafu LdsbxqtWFMTTFQNVS9596-31-41 10:50:007.7[facility] NhftnsgEQSPFYIVVQ8881-87-41 10:50:008.[facility] MauyfyxLEIFNQRHNQ1176-78-17 10:50:0010.0[facility] FpupfptHYMUXETFAC3140-33-15 10:50:0034.[facility] [place] DUCBGDHVCB4769-78-16 10:50:0028.7[facility] DjotjsuVCSYJDLIDW2865-51-97 10:50:00 87.8[facility] TxkbkujSJQXKUFLPY8840-45-33 10:50:00 Test Item Value Reference Range Interpretation Comments MCH (test code = MCH) 30.4 pg 27.0-31.0 [facility] VsokgjgZZSETLJQYC8788-16-09 10:50:003.27[facility] HermannCHEM PANEL 2019-01-23 10:50:002.0[facility] HermannCHEM UCGEB0971-40-40 10:50:55613Iepvjzdo HermannCHEM PEQTJ8056-56-17 10:50:0023[facility]annCHEM TAYRO8860-29-65 10:50:35545Nqdcimdl HermannCHEM DMOVK7456-93-74 10:50:003.1[facility]annCHEM LPEQN8498-55-14 10:50:54239Ndmvvecd HermannCHEM UFJCY8990-94-57 10:50:005 [facility]annCHE[facility] XSEYT8675-73-61 10:50:000.50[facility]annCHEM PANEL 2019-01-23 10:50:007.8[facility]annCHEM YLLNO0826-17-25 10:50:0083[facility]annCHEM KTIMR2174-81-35 10:50:0010.1[facility] TmssckvEROASLGMLA4087-72-90 10:50:000.2[facility] DrjqhnpVPQRFQIHIK1752-75-22 10:50:000.8[facility] UJFXZMGLCO0529-94-03 10:50:005.5[facility] WvnblypUTEFKDRLJK5117-69-53 10:50:002.2 [facility] WcwbzynEJBQVFXFKB6180-24-53 10:50:000.1[facility]annHEMATOLOGY 2019-01-23 10:50:0063.6[facility] UcjkxdtZQLWFMAZAU3039-21-38 10:50:008.9[facility] UswyqslLMQISJXJWY6170-96-07 10:50:002.3[facility] MgzgrkeQZXXCFPNQR4098-80-54 10:50:00Normal (01/23/19 5:50 AM)[facility] KrzmcpfTGPHOTEJVF7417-39-27 10:50:00 Normal (01/23/19 5:50 AM)[facility] PqjrbtxKMFAKURKAC1875-84-99 10:50:0025.1[facility] RcqsyigTNVANKXLQJ1325-81-66 10:50:0013.1[facility] HermannCHEM BFLVR8292-25-08 11:32:002.4[facility]annCHEM YLBST0725-98-86 11:32:002.4[facility]annCHEM VTZBT4400-09-75 09:04:003.0[facility]annCHEM UFUKB0600-94-94 09:04:003.0 [facility]UR[facility] AND KJTWS6847-04-03 07:14:00 Test Item Value Reference Range Interpretation Comments UA Spec Grav (test code = UA Spec 1.014 1 Grav) [facility] VZDXH9721-36-47 07:14:00 Test Item Value Reference Range Interpretation Comments UA pH (test code = UA pH) 6.0 1 5.0-8.0 [facility] UUIXT6628-16-17 07:14:00Negative (01/22/19 2:14 AM) [facility] KFPEW1864-81-88 07:14:00Negative *NA*(01/22/19 2:14 AM) [facility] EVERF0177-93-27 07:14:00Negative *NA*(01/22/19 2:14 AM) [facility] QYALG1010-39-69 07:14:00Negative *NA*(01/22/19 2:14 AM) [facility] IDXMK2755-44-18 07:14:00Negative (01/22/19 2:14 AM) [facility] QOQIE6112-22-19 07:14:00Negative (01/22/19 2:14 AM) [facility] OVOAP1217-64-22 07:14:00Negative (01/22/19 2:14 AM) [facility] GESXS8689-59-70 07:14:00<1[facility] HYVZL6381-12-93 07:14:0025[facility] XRPGL6930-09-52 07:14:002 [facility] KOCZJ3958-17-22 07:14:00Light Yellow *NA*(01/22/19 2:14 AM)[facility] WRAKW6472-03-67 07:14:00Clear (01/22/19 2:14 AM) [facility] KFLNO0036-82-40 07:14:00 Test Item Value Reference Range Interpretation Comments UA Spec Grav (test code = UA Spec 1.014 1 Grav) [facility] IALIK7726-39-97 07:14:00 Test Item Value Reference Range Interpretation Comments UA pH (test code = UA pH) 6.0 1 5.0-8.0 [facility] ZLSID0437-39-56 07:14:00Negative (01/22/19 2:14 AM) [facility] PSPLE9210-92-67 07:14:00Negative *NA*(01/22/19 2:14 AM) [facility] NXFHM4184-71-39 07:14:00Negative *NA*(01/22/19 2:14 AM) [facility] EJNAN4503-58-45 07:14:00Negative *NA*(01/22/19 2:14 AM) [facility] MWSBB6649-39-65 07:14:00Negative (01/22/19 2:14 AM) [facility] DWKFU5087-67-44 07:14:00Negative (01/22/19 2:14 AM) [facility] QEJWM3924-03-07 07:14:00Negative (01/22/19 2:14 AM) [facility] SJJOS6216-56-06 07:14:00<1[facility] THXBR5866-47-10 07:14:0025[facility] HKIGG4834-87-70 07:14:002 [facility] KSSSA7316-46-60 07:14:00Light Yellow *NA*(01/22/19 2:14 AM)[facility] UJJNY1335-61-37 07:14:00Clear (01/22/19 2:14 AM) [facility] FrqdnpcPQNZC5523-93-60 05:16:000.90[facility] YyoqgcbOMRGE6483-76-39 05:16:000.90[facility] SrvllmeUFEOCDICKE9084-90-93 05:01:0086.5[facility] YKTEUUKBVH3212-88-79 05:01:005.7[facility] LchwxxiJCPLZKHESH3541-55-85 05:01:006.9 [facility] YgnjsjnCCJZMGONTS2969-56-65 05:01:009.9[facility] HermannHEMATOLOGY 2019-01-22 05:01:0032.8[facility] ZhfininDCJFHULFXO1674-66-16 05:01:0013.6[facility] OreehmrAIJOUKCYKQ4728-19-81 05:01:38622Lrfccisr MucemsbCYDYGHTSPW6752-76-14 05:01:007.3[facility] YuikdnmCNYDEOVZPX1884-30-68 05:01:0014.0[facility] TBMFSJIQXT9749-32-66 05:01:004.85[facility] OjxyxywAKRBLUCCVT8237-26-76 05:01:00 42.7[facility] YotxpnxVKPSDIBBFC8756-31-07 05:01:00 Test Item Value Reference Range Interpretation Comments MCH (test code = MCH) 29.0 pg 27.0-31.0 [facility] MruafhfRLZEMUOCXD4499-93-40 05:01:0088.2[facility]annHEMATOLOGY 2019-01-22 05:01:00 Test Item Value Reference Range Interpretation Comments INR (test code = INR) 0.96 1 0.85-1.17 [facility] HryzjhfTMVQMFHZUI0932-13-37 05:01:00 Test Item Value Reference Range Interpretation Comments PT (test code = PT) 12.6 s 12.0-14.7 [facility] ZaemtytTWDJIADIKG8855-56-02 05:01:00 Test Item Value Reference Range Interpretation Comments PTT (test code = PTT) 25.9 s 22.9-35.8 [facility] BEIUITZ9036[facility]82-88 05:01:00Negative (01/22/19 12:01 AM) [facility] RBSOSPJ1209-19-41 05:01:00<0.02[facility] CARDIAC EPMWJFX1762-09-81 05:01:0049[facility] HermannCHEM VUHQH8166-59-36 05:01:000.6[facility] HermannCHEM LBWSC5279-71-60 05:01:80499Bqzvkseg HermannCHEM ZSBFY0604-03-07 05:01:004.0[facility]annCHEM JAQMQ2824-80-69 05:01:0017 [facility]annCHEM XELWK6859-21-12 05:01:0025[facility]annCHEM PANEL 2019-01-22 05:01:008.1[facility]annCHEM IMDVW5149-00-42 05:01:00 Test Item Value Reference Range Interpretation Comments B/C Ratio (test code = B/C Ratio) 20 1 6-25 [facility]annCHE[facility] EWGRB5279-14-67 05:01:00 Test Item Value Reference Range Interpretation Comments A/G Ratio (test code = A/G Ratio) 1.0 1 0.7-1.6 [facility]annCHE[facility] EYAMK3157-99-42 05:01:004.1[facility]annCHEM PANEL 2019-01-22 05:01:006.90[facility] ZnvbtmzDAEJGNPFHSIKU8071-57-05 05:01:00Negative *NA*(01/22/19 12:01 AM)[facility] OgjuemuSVHTDPWFJV4402-25-96 05:01:000.1[facility] VwwgturPCTPWJRTBG7820-60-04 05:01:000.7[facility] NuijlmxSEELUNVVEW5815-70-70 05:01:000.0[facility] QfvtokzBBVXUBCIFM6536-24-24 05:01:000.0[facility] BUYXAWUYPS7813-18-05 05:01:000.9[facility] WmnmtljIJVJHORRXD9067-68-12 05:01:008.6 [facility] ZtonsnzPXBTUKMOAK9920-01-85 05:01:000.6[facility]annHEMATOLOGY 2019-01-22 05:01:0086.5[facility] XssddkjOYVVPIBOFD9350-44-38 05:01:005.7[facility] NznzyyeHICLHNJJKK5398-34-96 05:01:006.9[facility] GqwjezlOGWQLNKEFB6034-16-52 05:01:009.9[facility] FctkfecPEXAEDPMJM8893-08-36 05:01:0032.8[facility] NRIYXXNFDK3366-45-06 05:01:0013.6[facility] PoarqrzHUIHHXMWBV6637-66-85 05:01:00 443[facility] GigfndhDBDHNEJIKN3839-99-29 05:01:007.3[facility]annHEMATOLOGY 2019-01-22 05:01:0014.0[facility] RabzsusBWHDPIXZAE4237-44-48 05:01:004.85[facility] LonkjmqIKPDARFEWS4358-94-20 05:01:0042.7[facility] QzzsgpcBYBBXMHLDY3747-73-38 05:01:00 Test Item Value Reference Range Interpretation Comments MCH (test code = MCH) 29.0 pg 27.0-31.0 [facility] YwqlvnuMIZZCZHPXI8712-29-58 05:01:0088.2[facility]annHEMATOLOGY 2019-01-22 05:01:00 Test Item Value Reference Range Interpretation Comments INR (test code = INR) 0.96 1 0.85-1.17 [facility] UsbvzvtZXLRIMTVTU0614-85-24 05:01:00 Test Item Value Reference Range Interpretation Comments PT (test code = PT) 12.6 s 12.0-14.7 [facility] EctgcamDBCGNCGIUF0057-00-49 05:01:00 Test Item Value Reference Range Interpretation Comments PTT (test code = PTT) 25.9 s 22.9-35.8 [facility] UNXHPKJ9982-23-83 05:01:00Negative (01/22/19 12:01 AM) [facility] HermannCARDIAC RJRVEKZ8912-34-49 05:01:00<0.02[facility] CARDIAC TJIREKN8726-71-61 05:01:0049[facility] HermannCHEM MUQBE3039-50-95 05:01:000.6[facility]annCHEM PLTSK0942-09-95 05:01:42469Tgoezbph HermannCHEM SOFBG4749-24-94 05:01:004.0[facility] HermannCHEM SBLES9865-82-14 05:01:0017 [facility]annCHEM WWAID4692-69-84 05:01:0025[facility]annCHEM PANEL 2019-01-22 05:01:008.1[facility]annCHEM XGTQU8310-52-59 05:01:00 Test Item Value Reference Range Interpretation Comments B/C Ratio (test code = B/C Ratio) 20 1 6-25 [facility] HermannCHEM IFZJB0878-07-49 05:01:00 Test Item Value Reference Range Interpretation Comments A/G Ratio (test code = A/G Ratio) 1.0 1 0.7-1.6 [facility]annCHE[facility] AICVL4776-09-63 05:01:004.1[facility] HermannCHEM PANEL 2019-01-22 05:01:006.90[facility] QgzwznkIAXIJUCOWLQYD5243-53-49 05:01:00Negative *NA*(01/22/19 12:01 AM)[facility] KbbuqltAAWXZXHBGY4719-12-85 05:01:000.1[facility] UftmsvdWAODJJQDKV5693-23-25 05:01:000.7[facility] KjweeaaKIZVYQOWJD3966-63-34 05:01:000.0[facility] PdfvaclUSQONDFLXS0774-74-98 05:01:000.0[facility] JPYUXCKGAM2325-78-69 05:01:000.9[facility] DtscxdiNXFBICYIIG9468-18-81 05:01:008.6 [facility] OwspaqzIPSOJFSJFP5244-90-47 05:01:000.6[facility] DynelgpYZU9O7532-14-39 14:36:00 Test Item Value Reference Range Interpretation [...] 0.00-0.01 N code = ETOHU) Comprehensive Metabolic Tuyxd3171-54-33 14:36:00 Test Item Value Reference Range Interpretation [...] is not provided , and the patient isKelli-Clari can, multiply by 1.2 12. If sex [...] the National Kid[employer] Foundation,http ://nkd ep.nih.gov Urinalysis Uomfvtnt9670-81-79 14:32:00 Test Item Value Reference Range Interpretation Comments Color (test code = COLOR) Yellow Yellow,Straw,Pl N yellow Clarity (test code = Clear Clear N CLAR) Specific [place] (test 1.024 1.001-1.035 N code = SPGR) [...] code = Few /HPF BACT) CBC with Bsjexofejnja1687-67-53 14:21:00 Test Item Value Reference Range Interpretation [...] code = ALYMPH) 3.0 K/cumm 0.5-4.6 N [place] Abs (test code = AMONO) 0.5 K/cumm 0.0-1.2 N Eos Abs (test code = AEOS) 0.19 K/cumm 0.00-0.74 N [place] Abs (test code = ABASO) 0.1 K/cumm 0.00-0.21 N
--- NOTE | 2021-09-15 15:59 | ER ---
Nurse's Notes [facility] Name: Tiffany Quinn Age: 51 yrs Sex: Female : 1970 Arrival Date: 09/15/2021 Time: 11:39 Bed 11 Private MD: Diagnosis: Bipolar disorder, unspecified;Anxiety disorder, unspecified Presentation: 09/15 11:40 Chief complaint: EMS states: used meth today and is feeling anxious. Pt states "I just aa5 felt like my blood pressure was high and like I was going to pass out". 11:40 Onset of symptoms was September 15, 2021. aa5 11:40 Acuity: MANUEL 3 aa5 11:40 Coronavirus screen: At this time, the client does not indicate any symptoms associated aa5 with coronavirus-19. Ebola Screen: No symptoms or risks identified at this time. Initial Sepsis Screen: Does the patient meet any 2 criteria? HR > 90 bpm. Does the patient have a suspected source of infection? No. Patient's initial sepsis screen is negative. Risk Assessment: Do you want to hurt yourself or someone else? Patient reports no desire to harm self or others. 11:40 Method Of Arrival: EMS: [facility] aa5 Historical: - Allergies: 11:40 Haldol; aa5 11:40 Pepcid; aa5 11:40 Toradol; aa5 - PMHx: 11:40 Anxiety; Bipolar disorder; aa5 - PSHx: 11:40 breast augmentation; Cholecystectomy; hernia repair; aa5 - Immunization history:: Client reports receiving the 2nd dose of the Covid vaccine. - Social history:: Smoking status: Patient denies any tobacco usage or history of. Patient uses street drugs, Methamphetamine (Meth). Screenin:10 Abuse screen: Denies threats or abuse. Denies injuries from another. Nutritional ld1 screening: No deficits noted. Tuberculosis screening: No symptoms or risk factors identified. Fall Risk None identified. Assessment: 14:10 General: Appears in no apparent distress. uncomfortable, Behavior is cooperative, ld1 anxious. Pain: Denies pain. Neuro: Level of Consciousness is awake, alert, obeys commands, Oriented to person, place, time, situation. Cardiovascular: Capillary refill < 3 seconds Patient's skin is warm and dry. Respiratory: Airway is patent Respiratory effort is even, unlabored, Respiratory pattern is regular, symmetrical. GI: Abdomen is round non-distended. : No signs and/or symptoms were reported regarding the genitourinary system. EENT: No signs and/or symptoms were reported regarding the EENT system. Derm: No signs and/or symptoms reported regarding the dermatologic system. Musculoskeletal: No signs and/or symptoms reported regarding the musculoskeletal system. 15:18 Reassessment: Patient appears in no apparent distress at this time. Patient is alert, ld1 oriented x 3, equal unlabored respirations, skin warm/dry/pink. Overdose: 16:07 [place] Suicide Severity Screening: "In the past month, have you wished you were ld1 or wished you could go to sleep and not wake up?" Patient responds "no." "In the past month, have you actually had any thoughts of killing yourself?" Patient responds "no." "In your lifetime, have you ever done anything, started to do anything, or prepared to do anything to end your life?" Patient responds "no.". 16:08 [place] Suicide Severity Screening: "In the past month, have you wished you were ld1 or wished you could go to sleep and not wake up?" Patient responds "yes." Based off client's responses, additional C-SSRS screening questions required. "In the past month, have you actually had any thoughts of killing yourself?" Patient responds "no.". 16:08 [place] Suicide Severity Screening: "In the past month, have you actually had any ld1 thoughts of killing yourself?" Patient responds "yes." Based off client's responses, additional C-SSRS screening questions required. Vital Signs: 11:40 BP 139 / 93; Pulse 102; Resp 18 S; Temp 97.9(TE); Pulse Ox 98% on R/A; Weight 84.82 kg aa5 (R); Height 5 ft. 1 in. (154.94 cm) (R); 14:10 BP 142 / 90; Pulse 103; Resp 18; Pulse Ox 99% on R/A; Pain 0/10; ld1 15:18 BP 139 / 89; Pulse 101; Resp 18; Pulse Ox 99% on R/A; ld1 11:40 Body Mass Index 35.33 (84.82 kg, 154.94 cm) aa5 ED Course: 11:39 Patient arrived in ED. aa5 11:40 Arm band placed on. aa5 13:12 Demarcus Mancilla MD is Attending Physician. kdr 13:12 Triage completed. aa5 14:10 Radha Paez, RN is Primary Nurse. ld1 14:10 Patient has correct armband on for positive identification. Placed in gown. Bed in low ld1 position. Call light in reach. Side rails up X2. line crew supervisor on. Pulse ox on. NIBP on. Door closed. Noise minimized. Warm blanket given. 14:10 No provider procedures requiring assistance completed. ld1 16:07 Patient did not have IV access during this emergency room visit. ld1 Administered Medications: No medications were administered Outcome: 15:58 Discharge ordered by . kdr 16:07 Discharged to home ambulatory. ld1 16:07 Condition: stable 16:07 Discharge instructions given to patient, Instructed on discharge instructions, follow up and referral plans. Demonstrated understanding of instructions, follow-up care. 16:08 Patient left the ED. ld1 Signatures: Demarcus Mancilla MD MD kdr Suma Lopez RN RN aa5 Radha Paez, RN RN ld1 Corrections: (The following items were deleted from the chart) 13:23 11:40 Chief complaint: EMS states: used meth today and is feeling anxious. aa5 aa5
--- NOTE | 2021-09-15 15:59 | EDPHYS ---
Physician Documentation [facility] Name: Tiffany Quinn Age: 51 yrs Sex: Female : 1970 Arrival Date: 09/15/2021 Time: 11:39 Bed 11 Private MD: ED Physician Demarcus Mancilla HPI: 09/15 16:04 This 51 yrs old Female presents to ER via EMS with complaints of Drug Abuse, Anxiety. kdr 16:04 The patient presents to the emergency department with anxiety, paranoia. Onset: The kdr symptoms/episode began/occurred Chronic problem for which the patient visits the ED frequently. Past psychiatric history: Prior diagnosis: bipolar disorder, Psychiatric medications include:. Associated signs and symptoms: The patient has no apparent associated signs or symptoms. Severity of symptoms: At their worst the symptoms were mild moderate just prior to arrival, in the emergency department the symptoms are unchanged. The patient has experienced similar episodes in the past, chronically. The patient has been recently seen by a physician: the patient's primary care provider. Historical: - Allergies: 11:40 Haldol; aa5 11:40 Pepcid; aa5 11:40 Toradol; aa5 - PMHx: 11:40 Anxiety; Bipolar disorder; aa5 - PSHx: 11:40 breast augmentation; Cholecystectomy; hernia repair; aa5 - Immunization history:: Client reports receiving the 2nd dose of the Covid vaccine. - Social history:: Smoking status: Patient denies any tobacco usage or history of. Patient uses street drugs, Methamphetamine (Meth). ROS: 16:04 Constitutional: Negative for fever, chills, and weight loss, Eyes: Negative for injury, kdr pain, redness, and discharge, ENT: Negative for injury, pain, and discharge, Neck: Negative for injury, pain, and swelling, Cardiovascular: Negative for chest pain, palpitations, and edema, Respiratory: Negative for shortness of breath, cough, wheezing, and pleuritic chest pain, Abdomen/GI: Negative for abdominal pain, nausea, vomiting, diarrhea, and constipation, Back: Negative for injury and pain, : Negative for injury, bleeding, discharge, and swelling, MS/Extremity: Negative for injury and deformity, Skin: Negative for injury, rash, and discoloration, Neuro: Negative for headache, weakness, numbness, tingling, and seizure activity. Allergy/Immunology: Negative for hives, rash, and allergies, Endocrine: Negative for neck swelling, polydipsia, polyuria, polyphagia, and marked weight changes, Hematologic/Lymphatic: Negative for swollen nodes, abnormal bleeding, and unusual bruising. 16:04 Psych: Positive for anxiety, Negative for drug dependence, alcohol dependence, auditory hallucinations, visual hallucinations, homicidal ideation, insomnia, suicide gesture, suicidal ideation. Exam: 16:04 Constitutional: This is a well developed, well nourished patient who is awake, alert, kdr and in no acute distress but with pressured speech and animated. Eyes: Pupils equal round and reactive to light, extra-ocular motions intact. Lids and lashes normal. Conjunctiva and sclera are non-icteric and not injected. Cornea within normal limits. Periorbital areas with no swelling, redness, or edema. Neck: Trachea midline, no thyromegaly or masses palpated, and no cervical lymphadenopathy. Supple, full range of motion without nuchal rigidity, or vertebral point tenderness. No Meningismus. Chest/axilla: Normal chest wall appearance and motion. Nontender with no deformity. No lesions are appreciated. Cardiovascular: Regular rate and rhythm with a normal S1 and S2. No gallops, murmurs, or rubs. Normal PMI, no JVD. No pulse deficits. Respiratory: Lungs have equal breath sounds bilaterally, clear to auscultation and percussion. No rales, rhonchi or wheezes noted. No increased work of breathing, no retractions or nasal flaring. Abdomen/GI: Soft, non-tender, with normal bowel sounds. No distension or tympany. No guarding or rebound. No evidence of tenderness throughout. Back: No spinal tenderness. No costovertebral tenderness. Full range of motion. Skin: Warm, dry with normal turgor. Normal color with no rashes, no lesions, and no evidence of cellulitis. MS/ Extremity: Pulses equal, no cyanosis. Neurovascular intact. Full, normal range of motion. Neuro: Awake and alert, GCS 15, oriented to person, place, time, and situation. Cranial nerves II-XII grossly intact. Motor strength 5/5 in all extremities. Sensory grossly intact. Cerebellar exam normal. Normal gait. Psych: Awake, alert, with orientation to person, place and time. Behavior, mood, and affect are within normal limits. Vital Signs: 11:40 BP 139 / 93; Pulse 102; Resp 18 S; Temp 97.9(TE); Pulse Ox 98% on R/A; Weight 84.82 kg aa5 (R); Height 5 ft. 1 in. (154.94 cm) (R); 14:10 BP 142 / 90; Pulse 103; Resp 18; Pulse Ox 99% on R/A; Pain 0/10; ld1 15:18 BP 139 / 89; Pulse 101; Resp 18; Pulse Ox 99% on R/A; ld1 11:40 Body Mass Index 35.33 (84.82 kg, 154.94 cm) aa5 MDM: 15:58 Patient medically screened. kdr 16:04 Data reviewed: vital signs, nurses notes, lab test result(s), radiologic studies. kdr Counseling: I had a detailed discussion with the patient and/or guardian regarding: the historical points, exam findings, and any diagnostic results supporting the discharge/admit diagnosis, lab results, radiology results, the need for outpatient follow up. Administered Medications: No medications were administered Disposition Summary: 09/15/21 15:58 Discharge Ordered Location: Home kdr Problem: an ongoing problem kdr Symptoms: are unchanged kdr Condition: Stable kdr Diagnosis - Bipolar disorder, unspecified kdr - Anxiety disorder, unspecified kdr Followup: kdr - With: Private Physician - When: 2 - 3 days - Reason: If symptoms return, Further diagnostic work-up, Recheck today's complaints, Continuance of care, Re-evaluation by your physician Discharge Instructions: - Discharge Summary Sheet kdr - Substance Use Disorder kdr - Substance Use Disorder and Mental Illness kdr Forms: - Medication Reconciliation Form kdr - Thank You Letter kdr Signatures: Demarcus Mancilla MD MD kdr Suma Lopez, RN RN aa5
[2021-09-15 16:29] VITALS: TEMP 97.9
[2021-09-15 16:31] VITALS: O2SAT 99
[2021-09-15 16:32] VITALS: BP 139/89
== END 2021-09-15 16:08 | disposition home or self-care (01) ==
LOC: ER 11:36
DX: F31.9 Bipolar disorder, unspecified (principal); Z98.82 Breast implant status; Z88.5 Allergy status to narcotic agent; Z88.8 Allergy status to other drugs, medicaments and biological substances
CPT/HCPCS: 99284

== ENCOUNTER 2021-09-15 19:59 | Emergency (ER) | payer OTHER ==
--- OUTSIDE RECORDS SUMMARY | 2021-09-15 20:07 | XMS REPORT | Continuity of Care Document ---
:1970 Author Organization [facility] t Address [address] [place] [address] Care Team Providers Name Role Phone UNKNOWN [...] Policy Number Effective Date Expiration Date S [facility] OF [place] - [id number] 2020 [employer] 00:00:00 (MEDICARE REPLACEMENT/ADVANT AGE - HMO) Problems Condition Condition Condition Status Onset Resolution Last Treating Co mments Source Name Details Category Date Date Treatment Clinician Date LOW PB Diagnosis Active 2019-01-22 Mem oria 01-21 01:52:00 l LOW PB 00:00: Yonis 00 Active 01/21/2019 [place] INFECTIOUS Diagnosis Active 2019-02-06 Memoria GASTROENTE 01-21 08:58:00 l RITIS AND 00:00: [place] COLITIS INFECTIOUS 00 GASTROENTE RITIS AND COLITIS Active 01/21/2019 [facility] Irregular Irregular Disease Active Uni vers menstrual menstrual 8-15 ity of cycle cycle 00:00: [address] Skin Skin Disease Active Univers lesion lesion 8-15 ity of 00:00: [address] Psychiatri Psychiatri Disease Active U nivers c disorder c disorder 8-15 it y of 00:00: [address] Well woman Well woman Disease Active U nivers exam with exam with 8-15 ity of routine routine 00:00: [place] gynecologi gynecologi 00 Me dical nicky exam nicky exam Branch INFECTIOUS Diagnosis Active 2019-02-06 Memoria GASTROENTE 08:58:00 l RITIS AND Yonis COLITIS, INFECTIOUS GASTROENTE RITIS AND COLITIS, Active [facility] Allergies, Adverse Reactions, Alerts Allergy Allergy Status Severity Reaction(s) Onset Inactive Treating Comm ents Source Name Type Date Date Clinician Phenerga Phenerga Active Memori a n n l Yonis NO KNOWN Drug Active Univers ALLERGIE Class ity of S [facility] Social History Social Habit Start Date Stop Date Quantity Comments Source History of Cigarette Smoker Universi ty of tobacco use [facility] Tobacco Comment 2-3 cigs a day [facility] Exposure to Not sure [place] of SARS-CoV-2 [facility] (event) [place] Tobacco use and 2016-06-08 2016-06-08 [facility] 00:00:00 [facility] Alcohol intake 2016-06-08 2016-06-08 0 /d University of 00:00:00 00:00:00 [facility] Sex Ass[birth year] At [birth year] Universit y of 00:00:00 00:00:00 [facility] Smoking Status Start Date Stop Date Source Social History 2019-01-22 05:00:12 [facility] Her urena Current some day smoker 2016-06-08 00:00:00 [facility] Medications Ordered Filled Start Stop Current Ordering Indication Dosage Frequency Signature Comments Components Source Medication Medication Date Date Medication? Clinician (SIG) Name Name cefTRIAXone 2020-10- No 1000mg 1,000 mg, Univers (ROCEPHIN) 17 11-17 IV ity of 1,000 mg in 08:30: 08:01 [place], [place] NaCl 0.9% 00 :00 ONCE, 1 [...] 09/09/21 at 2330, RANDA amoxicillin 2020-10 Yes [id number] 500mg Take 1 Univers 500 mg 11-10 capsule by ity of capsule 00:00: mouth 3 [place] 00 (three) Medical times Branch daily. ondansetron 2019-10- No 4mg 4 mg, [facility] ers (ZOFRAN-ODT 12-01 Oral, ity of ) 15:15: 14:16 ONCE, 1 [place] disintegrat 00 :00 dose, Mon Med ical ing tablet 09/30/20 at [facility] 4 mg 0915, Routine ondansetron 2019-10- No 4mg 4 mg, [facility] ers (ZOFRAN-ODT 12-01- Oral, ity of ) 14:30: 13:32 ONCE, 1 [place] disintegrat 00 :00 dose, Mon Med ical ing tablet 09/30/20 at [facility] 4 mg 0830, Routine ondansetron 2019-10 Yes [id number] 4mg Take 1 Univers 4 mg 2-07 tablet by ity of disintegrat 00:00: mouth [place] ing tablet 00 every 8 Medica l (eight) Branch hours as needed for Nausea and Vomiting (N/V). ondansetron 2019-10 Yes [id number] 4mg Take 1 Univers 4 mg 2-07 tablet by ity of disintegrat 00:00: mouth [place] ing tablet 00 every 8 Medica l (eight) Branch hours as needed for Nausea and Vomiting (N/V). ondansetron 2019-10 Yes [id number] 4mg Take 1 Univers 4 mg 2-07 tablet by ity of disintegrat 00:00: mouth [place] ing tablet 00 every 8 Medica l (eight) Branch hours as needed for Nausea and Vomiting (N/V). ondansetron 2019-10 Yes [id number] 4mg Take 1 Univers 4 mg 2-07 tablet by ity of disintegrat 00:00: mouth [place] ing tablet 00 every 8 Medica l (eight) Branch hours as needed for Nausea and Vomiting (N/V). ciprofloxac 2019 Yes 500 mg = 1 Memoria in 500 mg 4-04 tab, PO, l oral tablet 17:35: [id number], X Yonis 00 4 day, # 8 [...] 4-04 tab, PO, l oral tablet 17:35: [id number], X [place] 00 4 day, # 8 tab, 0 [...] s with feeding tube less than 14 Banglades[place] (Dobhoff, J-tube etc) and pediatric and patients. Potassium No Notes: Memori a Chloride 4-03 (Same as: l 13:26: K-Dur 20) [place] "Do Not Crush" Give with food and full glass of water For patients unable to swallow tablet, dissolve in one half glass of water. Allow about 2 minutes for the tablets to disintegra te. Stir before giving to prepare slurry and administer . Please exclude Patient s with feeding tube less than 14 [place] (Dobhoff, J-tube etc) and pediatric and patients. Strattera No 0.5 mg/kg, Me moria 01-24 Route: PO, l 14:00: QAM, Yonis Dosing Weight 75, kg, Start date: 01/24/19 9:00:00 CDT, Duration: 30 day, Stop date: 02/22/19 9:00:00 CDT Strattera 0 No 0.5 mg/kg, Me moria 402 Route: PO, l 14:00: QAM, [place] 00 Dosing Weight 75, kg, Start date: [...] Memoria 4- (Same as: l 15:00: Flagyl) [place] 00 Take with food/ avoid alcohol Cipro No Notes: February Memori a 4- interfere l 15:00: w/enteral [place] 00 feedings - Take 1 hr before [...] PO, ONCE, l mEq oral 14:20: 0 [place] tablet, 00 Refill(s) extended release Metronidazo No 500 mg, Mem oria le 500 MG 4-01 PO, l Oral Tablet 14:20: [id number], 0 [place] [Flagyl] 00 Refill(s) Ciprofloxac No 500 mg, Mem oria in 500 MG 01 PO, l Oral Tablet 14:20: [id number], 0 [place] [Cipro] 00 Refill(s) potassium Yes 40 mEq, Memor ia chloride 20 -01 PO, ONCE, l mEq oral 14:20: 0 [place] tablet, 00 Refill(s) extended release Metronidazo No 500 mg, Mem oria le 500 MG 4-01 PO, l Oral Tablet 14:20: [id number], 0 H [place] [Flagyl] 00 Refill(s) Ciprofloxac No 500 mg, Mem oria in 500 MG 4-01 PO, l Oral Tablet 14:20: [id number], 0 Yonis [Cipro] 00 Refill(s) Potassium No [...] s with feeding tube less than 14 [place] (Dobhoff, J-tube etc) and pediatric and patients. [...] s with feeding tube less than 14 [place] (Dobhoff, J-tube etc) and pediatric and patients. [...] tab, PO, l Tablet 21:08: BID, 0 [place] [Risperdal] 00 Refill(s) Strattera Yes 0.5 mg/kg, [...] tab, PO, l Tablet 21:08: BID, 0 [place] [Risperdal] 00 Refill(s) Zosyn No Notes: Memoria [...] oria 3-31 to exceed l 15:03: 400mg/day. [place] 00 (Same As: Ultram) Tramadol No Notes: [...] 01-22 Route: IM, l 09:47: Drug form: [place] 00 PDR/INJ, PRN, Dosing Weight 75.994, kg, [...] 01-22 Route: IM, l 09:47: Drug form: [place] PDR/INJ, PRN, Dosing Weight 75.994, kg, PRN Blood Glucose Results, Start date: 01/22/19 4:47:00 CDT, Duration: 30 day, Stop date: 02/21/19 4:46:00 CDT Dextrose 2018- No 12.5 gm, Memor ia 50% Syringe 3-31 25 mL, l 09:47: Route: [place] 00 IVP, Drug Form: INJ, Dosing Weight [...] moria IV 3-31 1,000 l 08:52: ml/hr, [place] 00 Infuse Over: 1 hr, Route: IV, [...] 0.9% 3-31 Same as: l 04:52: BD [place] Posiflush Sterile NS (Bolus) No 1,000 mL, Me moria IV 3-31 1,000 l 04:51: ml/hr, [place] 00 Infuse Over: 1 hr, Route: IV, 1,000, Drug form: INJ, ONCE, Priority: STAT, Dosing Weight 75.994 kg, Start date: 01/21/19 23:51:00 CDT, Stop date: 01/21/19 23:51:00 CDT NS (Bolus) No 1,000 mL, Me moria IV 01-22 1,000 l 04:51: ml/hr, [place] 00 Infuse Over: 1 hr, Route: IV, [...] 19:02: [place] (CITALOPRAM 27 Medical ORAL) Branch ibuprofen 2016-0 Yes 200mg Take 200 Uni vers (ADVIL) 200 8-15 mg by ity of mg tablet 14:02: mouth [place] [id number] every 6 Medical (six) Branch hours as needed. CLONAZEPAM 2016-0 Yes Take by Uni vers (KLONOPIN 8-15 mouth. ity of ORAL) 14:02: [address] Branch CITALOPRAM 2016-0 Yes Take by Uni vers HYDROBROMID 8-15 mouth. ity of E 14:02: [place] (CITALOPRAM 27 Medical ORAL) Branch ibuprofen 2016-0 Yes 200mg Take 200 Uni vers (ADVIL) 200 8-15 mg by ity of mg tablet 14:02: mouth [place] [address] every 6 Medical (six) Branch hours as needed. CLONAZEPAM 2016-0 Yes Take by Uni vers (KLONOPIN 8-15 mouth. ity of ORAL) 14:02: [address] Branch CITALOPRAM 2016-0 Yes Take by Uni vers HYDROBROMID 8-15 mouth. ity of E 14:02: [place] (CITALOPRAM 27 Medical ORAL) Branch ibuprofen 2016-0 Yes 200mg Take 200 Uni vers (ADVIL) 200 8-15 mg by ity of mg tablet 14:02: mouth [place] [address] every 6 Medical (six) Branch hours as needed. CLONAZEPAM 2016-0 Yes Take by Uni vers (KLONOPIN 8-15 mouth. ity of ORAL) 14:02: [place] [address] Medical Branch CITALOPRAM 2016-0 Yes Take by Uni vers HYDROBROMID 8-15 mouth. ity of E 14:02: [place] (CITALOPRAM 27 Medical ORAL) Branch misoprostol 2016-0 [...] 2021-09-10 08:01:00 138 mm[Hg] Univer sity of [facility] Diastolic blood 2021-09-10 08:01:00 97 mm[Hg] Unive rsity of [facility] Heart rate 2021-09-10 08:01:00 87 /min General acute hospital Respiratory rate 2021-09-10 08:01:00 20 /min [facility] Oxygen saturation in 2021-09-10 08:01:00 98 /min University of Arterial blood by [place] [employer] [facility] Pulse oximetry Branch Body temperature 2021-09-10 04:28:51 37.17 Ruthann [facility] Body height 2021-09-10 04:26:00 154.9 cm General acute hospital Body weight 2021-09-10 04:26:00 81.647 kg General acute hospital BMI 2021-09-10 04:26:00 34.01 kg/m2 General acute hospital Systolic blood 2021-09-09 20:06:00 150 mm[Hg] Univer sity of [facility] Diastolic blood 2021-09-09 20:06:00 89 mm[Hg] Unive rsity of [facility] Heart rate 2021-09-09 20:06:00 108 /min General acute hospital Body temperature 2021-09-09 20:06:00 37.22 Ruthann [facility] Respiratory rate 2021-09-09 20:06:00 18 /min [facility] Oxygen saturation in 2021-09-09 20:06:00 99 /min University of Arterial blood by [employer] nicky Pulse oximetry Branch Body weight 2021-09-09 20:05:00 81.647 kg Universi ty of [place] [facility] BMI 2021-09-09 20:05:00 32.40 kg/m2 Universi ty of [place] [facility] Systolic blood 2020-09-30 14:00:00 126 mm[Hg] Univer sity of pressure [place] [facility] Diastolic blood 2020-09-30 14:00:00 84 mm[Hg] Unive rsity of pressure [place] Medical [facility] Heart rate 2020-09-30 14:00:00 79 /min Universi ty of [place] [facility] Oxygen saturation in 2020-09-30 14:00:00 98 /min University of Arterial blood by [facility] nicky Pulse oximetry Branch Body temperature 2020-09-30 13:26:00 37.22 Ruthann Univ ersity of [place] [facility] Respiratory rate 2020-09-30 13:26:00 16 /min Univ ersity of [place] [facility] Body weight 2020-09-30 13:26:00 72.576 kg Universi ty of [place] [facility] BMI 2020-09-30 13:26:00 28.80 kg/m2 Universi ty [facility] [place] [facility] Systolic blood 2020-09-30 14:00:00 126 mm[Hg] Univer sity of pressure [place] [facility] Diastolic blood 2020-09-30 14:00:00 84 mm[Hg] Unive rsity of pressure [place] [facility] Heart rate 2020-09-30 14:00:00 79 /min Universi ty of [place] [facility] Oxygen saturation in 2020-09-30 14:00:00 98 /min University of Arterial blood by [facility] nicky Pulse oximetry Branch Body temperature 2020-09-30 13:26:00 37.22 Ruthann Univ ersity of [place] [facility] Respiratory rate 2020-09-30 13:26:00 16 /min Univ ersity of [place] [facility] Body weight 2020-09-30 13:26:00 72.576 kg [facility]i ty [facility] [place] [facility] BMI 2020-09-30 13:26:00 28.80 kg/m2 [facility]i ty [facility] [place] [facility] Temperature Oral (F) 2019-01-28 01:16:00 98.6 F [facility] Yonis Systolic (mm Hg) 2019-01-28 01:16:00 Estrada rial [place] Diastolic (mm Hg) 2019-01-28 01:16:00 Mem orial [place] Heart Rate 2019-01-28 01:16:00 [facility] Yon[place] Respitory Rate 2019-01-28 01:16:00 Memori al [place] Systolic (mm Hg) 2019-01-27 20:42:00 Estrada rial [place] Diastolic (mm Hg) 2019-01-27 20:42:00 Mem orial Yonis Heart Rate 2019-01-27 20:42:00 [facility] [place] Respitory Rate 2019-01-27 20:42:00 Memori al [place] Temperature Oral (F) 2019-01-27 20:42:00 98.5 F [facility] [place] Systolic (mm Hg) 2019-01-27 17:00:00 Estrada rial [place] Diastolic (mm Hg) 2019-01-27 17:00:00 Mem orial [place] Temperature Oral (F) 2019-01-27 17:00:00 98.5 F Memorial [place] Heart Rate 2019-01-27 17:00:00 [facility] [place] Respitory Rate 2019-01-27 17:00:00 [facility] [place] Height 2019-01-22 14:35:00 157.48 cm [facility] BMI Calculated 2019-01-22 14:35:00 [facility] [place] Weight 2019-01-22 14:35:00 [facility] [place] Weight 2019-01-22 04:34:00 [facility] Procedure Date / Time Performing Clinician Source Performed URINALYSIS 2021-09-10 06:03:00 Neena Bradford [facility] URINE DRUG (IMMUNOASSAY) 2021-09-10 06:03:00 Neena Bradford [facility] SCREEN W/O REFLEX XR CHEST 1 VW 2021-09-10 04:57:30 Neena Bradford [facility] CREATINE KINASE 2021-09-10 04:39:00 Neena Bradfodr [facility] MAGNESIUM 2021-09-10 04:39:00 Neena Bradford [facility] TROPONIN I 2021-09-10 04:39:00 Neena Bradford [facility] COMP. METABOLIC PANEL 2021-09-10 04:39:00 Neena Bradford [facility] ([id number]) Medical [place] CBC WITH DIFF 2021-09-10 04:39:00 Neena Bradford [facility] PROTHROMBIN TIME / INR 2021-09-10 04:39:00 Neena Bradford [facility] ACTIVATED PARTIAL 2021-09-10 04:39:00 [facility] Bradford [facility] PRO-BNP 2021-09-10 04:39:00 Neena Bradford [facility] COVID-19 (ID NOW RAPID 2021-09-10 04:39:00 Neena Bradford [facility] TESTING) Medical Branch TROPONIN I 2021-09-09 21:49:00 [facility] COMP. METABOLIC PANEL 2021-09-09 21:49:00 BonhamLuanne [facility] ([id number]) Medical Branch LITHIUM 2021-09-09 21:49:00 [facility] CBC WITH DIFF 2021-09-09 21:49:00 [facility] CONSENT/REFUSAL FOR 2021-09-09 19:51:22 Doctor Unassigned, No Un [facility] DIAGNOSIS AND TREATMENT Name Medical Branch URINALYSIS 2020-09-30 13:27:00 Jackson, [facility] ADC,CLC OR LCC ONLY - 2020-09-30 13:27:00 JacksonChuy aleman [facility] INFLUENZA A & B DIRECT Medical B ranch ANTIGEN COVID-19 (ID NOW RAPID 2020-09-30 13:27:00 JacksonChuy [facility] TESTING) Medical Branch Encounters Start End Encounter Admission Attending Care Care Encounter Source Date/Time Date/Time Type Type Clinicians Facility Department ID 2021-09-08 Outpatient Humaira-Mbayo VFP VFP [id number] 02:24:16 _A_ [id number] Family Practic e 2021-09-07 Outpatient Humaira-Mbayo VFP VFP [id number] 22:13:27 _A_AH 10823 Family Practic e 2021-09-07 Outpatient Humaira-Mbayo VFP VFP [id number] [place] 13:23:42 _A_ [id number] Family Practic e 2021-09-06 Outpatient Humaira-Mbayo VFP VFP [id number] [facility] 04:23:58 _A_AH 73431 Family Practic e 2021-09-05 Outpatient Bernadine [facility] [id number] [facility] 19:22:48 _A_AH 40127 Family Practic e 2019-01-22 Inpatient E [facility] MED 7500 [facility] W 04:39:00 2021-09-09 2021-09-10 Emergency Sanchez [facility] [id number] Univers 22:20:00 03:02:00 Neena JIMENEZ [id number] i ty of [place] 4.2.7.2.686 [facility] [id number] [address] 2021-09-09 2021-09-10 Emergency X SANCHEZ [facility] ERT [id number] Univers 22:20:00 03:02:[address] [facility] 2021-09-09 2021-09-10 Emergency X SANCHEZ [facility] ERT [id number] Univers 22:20:00 03:02:[address] [facility] 2021-09-09 2021-09-09 Emergency Julia [facility] [id number] Univers 14:07:00 17:35:00 Luanne JIMENEZ [id number] i ty of [place] 4.2.7.2.686 [facility] [id number] [address] 2021-09-09 2021-09-09 Orders Doctor BELKYS [id number] Univers 00:00:00 00:00:00 Only Unassigned, LANA 350.1.13.10 ity of [place] [facility] 4.2.7.2.686 Joe [id number] [facility] 009 Branch 2020-09-30 2020-09-30 Emergency Singer [facility] [id number] 07:22:00 08:18:00 Chuy Jimenez [id number] [place] 4.2.7.2.686 [place] [id number] 2020-09-30 2020-09-30 Emergency Singer [facility] [id number] Univers 07:22:00 08:18:00 Chuy Jimenez 350.1.13.10 i ty lev [place] 4.2.7.2.686 [facility] [id number] [place] [address] Branch 2020-09-30 2020-09-30 Emergency X SINGER [facility] ERT [id number] Univers 07:22:00 07:22:[address] [facility] 2020-03-04 2020-03-14 Inpatient 3 Johnnie Eldridgekeel [facility] [id number] 15:38:00 15:25:00 Chente [facility] 2019-01-22 2019-01-28 Inpatient [facility] [id number] Memoria 04:33:00 04:40:00 r Yonis 00 l [facility] 2018-02-21 2018-02-20 [id number] 14:48:00 13:18:00 [facility] Results Test Description Test Time Test Comments Results Result Comments Source TROPONIN I 2021-09-10 05:26:53 Test Item Value Reference Range Interpretation Comme nts TROPONIN I (test code = 0.003 ng/mL See_Comment [Au tomated message] The 1205952588) system which ge nerated this result tra [...] biotin. Lab Interpretation Normal (test code = 39887-6) [id number] 05:24:16 Test Item Value Reference Range Interpretation Comments NT-proBNP (test code 35 pg/mL See_Comment [Autom ated = 6286662561) message] The system which generated this result transmitted reference range : <=125. The reference range was not used to interpret this result as normal/abnormal . PERRY (test code = EPRRY) Biotin has been reported to cause a negative bias, interpret results relative to patient's use of biotin. Lab Interpretation Normal (test code = 47633-6) [facility] 05:16:51 Test Item Value Reference Range Interpretation Comments MAGNESIUM (test code = 1933514809) 1.8 mg/dL 1.7-2.4 Lab Interpretation (test code = Normal 55601-4) [facility]. METABOLIC PANEL ([id number])2021-09-10 05:16:31 Test Item Value Reference Range Interpretation Comments NA (test code = 139 mmol/L 135-145 6818076658) K (test code = 4.0 mmol/L 3.5-5.0 1433229091) CL (test code = 108 mmol/L 98-108 5715610125) CO2 TOTAL (test code 25 mmol/L 23-31 = 5470764769) AGAP (test code = 2-16 5068164722) BUN (test code = 14 mg/dL 7-23 7484822955) GLUCOSE (test code = 88 mg/dL 70-110 2873886774) CREATININE (test code 0.89 mg/dL 0.50-1.04 = 9827065862) TOTAL BILI (test code 0.5 mg/dL 0.1-1.1 = 1266968086) CALCIUM (test code = 10.3 mg/dL 8.6-10.6 6240754604) T PROTEIN (test code 6.9 g/dL 6.3-8.2 = 6029068253) ALBUMIN (test code = 4.3 g/dL 3.5-5.0 8934105118) ALK PHOS (test code = 72 U/L 34-122 0477285430) ALTv (test code = 17 U/L 5-35 1742-6) AST(SGOT) (test code 29 U/L 13-40 = 7473871283) eGFR (test code = mL/min/1.73m2 7658599622) PERRY (test code = PERRY) Association of [...] or urine or abnormalities in imaging tests). [facility] [id number] 05:16:16 Test Item Value Reference Range Interpretation Comments CK (test code = 9509584862) 267 U/L 33-194 H Lab Interpretation (test code = Abnormal 66507-8) [facility] THRMPLAS [id number] 05:05:32 Test Item Value Reference Range Interpretation Comments APTT Patient (test See_Comment [Automat ed code = 3173-2) message] The system which generated this result transmitted reference range : 23 - 38 Seconds . The reference range was not used to interpr et this result as normal/abnormal . PERRY (test code = PERRY) The [facility] patient population mean normal value for aPTT is 30 seconds. Lab Interpretation Normal (test code = 01704-7) [facility] / [id number] 05:03:30 Test Item Value Reference Range Interpretation [...] tions. Lab Interpretation (test Normal code = 41872-6) General acute hospital WITH [id number] 04:57:13 Test Item Value Reference Range Interpretation Comments WBC (test code = See_Comment [Automated 5690-2) message] The sy stem which generated this [...] RDW-SD (test code = 41.2 fL 39.0-49.9 27282-4) RDW-CV (test code = 13.0 % 12.0-15.5 788-0) PLT (test code = See_Comment H [Automated 777-3) message] The sy stem which generated this result transmitted reference range : 166 - 358 10*3/ ?L. The reference r katie was not used to interpret this result as normal/abnormal . MPV (test code = 9.6 fL 9.5-12.9 82050-3) NRBC/100 WBC (test See_Comment [Automat ed code = 2036363235) message] The system which generated this result transmitted reference range : 0.0 - 10.0 /100 WBCs. The refer ence range was not u sed to interpret th is result as normal/abnormal . NRBC x10^3 (test code <0.01 See_Comment [Auto mated = 7474747058) message] The s ystem which generated this result transmitted reference range : 10*3/?L. The reference range was not used to interpret this result as normal/abnormal . GRAN MAT (NEUT) % 61.9 % (test code = 770-8) IMM GRAN % (test code 0.30 % = 6092970858) LYMPH % (test code = 26.0 % 736-9) MONO % (test code = 9.5 % 5905-5) EOS % (test code = 1.6 % 713-8) BASO % (test code = 0.7 % 706-2) GRAN MAT x10^3(ANC) 5.91 10*3/uL 1.88-7.09 (test code = 7402658841) IMM GRAN x10^3 (test 0.03 10*3/uL 0.00-0.06 code = 5978576420) LYMPH x10^3 (test code 2.48 10*3/uL 1.32-3.29 = 731-0) MONO x10^3 (test code 0.91 10*3/uL 0.33-0.92 = 742-7) EOS x10^3 (test code = 0.15 10*3/uL 0.03-0.39 711-2) BASO x10^3 (test code 0.07 10*3/uL 0.01-0.07 = 704-7) Lab Interpretation Abnormal (test code = 34513-3) [facility] [id number] 22:24:55 Test Item Value Reference Interpretation Comments Range TROPONIN I (test 0.002 ng/mL See_Comment [Automated code = 6597724213) message] The system which generated this result [...] biotin. Lab Interpretation Normal (test code = 74063-1) [facility] 22:24:34 Test Item Value Reference Range Interpretation Comments Olga (test code = <0.2 0.6-1.2 L 6647551661) PERRY (test code = PERRY) Toxic Range: ? Greater than 1.2 mmol/L Lab Interpretation (test Abnormal code = 57856-0) [facility] ([id number])2021-09-09 22:13:54 Test Item Value Reference Range Interpretation Comments NA (test code = 139 mmol/L 135-145 3206377898) K (test code = 4.0 mmol/L 3.5-5.0 1036617035) CL (test code = 105 mmol/L 98-108 8051436634) CO2 TOTAL (test code 26 mmol/L 23-31 = 4834226872) AGAP (test code = 2-16 6667885239) BUN (test code = 11 mg/dL 7-23 2641801740) GLUCOSE (test code = 109 mg/dL 70-110 9541950867) CREATININE (test code 0.71 mg/dL 0.50-1.04 = 0152078994) TOTAL BILI (test code 0.6 mg/dL 0.1-1.1 = 7106286705) CALCIUM (test code = 10.4 mg/dL 8.6-10.6 7398634671) T PROTEIN (test code 7.6 g/dL 6.3-8.2 = 5663031526) ALBUMIN (test code = 4.7 g/dL 3.5-5.0 2478633067) ALK PHOS (test code = 78 U/L 34-122 6725271758) ALTv (test code = 19 U/L 5-35 2-6) AST(SGOT) (test code 28 U/L 13-40 = 3738193969) eGFR (test code = mL/min/1.73m2 0097316570) EPRRY (test code = PERRY) Association of Glomerular [...] or urine or abnormalities in imaging tests). General acute hospital WITH VPZO2388-73-48 22:03:32 Test Item Value Reference Range Interpretation Comments WBC (test code = See_Comment [Automated 2264-2) message] The sy stem which generated this [...] RDW-SD (test code = 40.2 fL 39.0-49.9 55999-7) RDW-CV (test code = 12.9 % 12.0-15.5 788-0) PLT (test code = See_Comment H [Automated 777-3) message] The sy stem which generated this result transmitted reference range : 166 - 358 10*3/ ?L. The reference r katie was not used to interpret this result as normal/abnormal . MPV (test code = 9.4 fL 9.5-12.9 L 96145-9) NRBC/100 WBC (test See_Comment [Automat ed code = 6874527544) message] The system which generated this result transmitted reference range : 0.0 - 10.0 /100 WBCs. The refer ence range was not u sed to interpret th is result as normal/abnormal . NRBC x10^3 (test code <0.01 See_Comment [Auto mated = 0390260797) message] The s ystem which generated this result transmitted reference range : 10*3/?L. The reference range was not used to interpret this result as normal/abnormal . GRAN MAT (NEUT) % 67.1 % (test code = 770-8) IMM GRAN % (test code 1.00 % = 7075382342) LYMPH % (test code = 21.4 % 736-9) MONO % (test code = 7.9 % 5905-5) EOS % (test code = 1.8 % 713-8) BASO % (test code = 0.8 % 706-2) GRAN MAT x10^3(ANC) 7.35 10*3/uL 1.88-7.09 H (test code = 3214892862) IMM GRAN x10^3 (test 0.11 10*3/uL 0.00-0.06 H code = 4961158694) LYMPH x10^3 (test code 2.34 10*3/uL 1.32-3.29 = 731-0) MONO x10^3 (test code 0.86 10*3/uL 0.33-0.92 = 742-7) EOS x10^3 (test code = 0.20 10*3/uL 0.03-0.39 711-2) BASO x10^3 (test code 0.09 10*3/uL 0.01-0.07 H = 704-7) Lab Interpretation Abnormal (test code = 76561-6) [facility]UENZA A & B DIRECT MILREYE2777-70-93 14:04:00 Test Item Value Reference Range Interpretation Comments Influenza A (test code = 06764-4) Negative Negative Influenza B (test code = 99978-6) Negative Negative Lab Interpretation (test code = Normal 84501-1) [facility]ID TESTING)2020-09-30 14:03:00 Test Item Value Reference Range Interpretation Comments SARS-CoV-2 Rapid ID NOW Not Detected Not Detected (test code = 61371-4) PERRY (test code = PERRY) ID NOW COVID-19 Assay is an isothermal nucleic acid amplification test intended for the qualitative detection of nucleic acid from SARS-CoV-2 viral RNA in nasopharyngeal ([employer]) specimens. It is used under Emergency Use [...] indicated. Lab Interpretation Normal (test code = 04981-9) [facility] 13:55:00 Test Item Value Reference Range Interpretation Comments APPEARANCE (test code = Hazy Clear A 0730835328) COLOR (test code = Yellow Yellow 5808202587) PH (test code = 4.8-8.0 8722532950) SP GRAVITY (test code = 1.003-1.030 5336770872) GLU U QUAL (test code = Normal Normal 1797097411) BLOOD (test code = Negative Negative 3999486468) KETONES (test code = 5 mg/dL Negative A 0493443280) PROTEIN (test code = Negative Negative 2887-8) UROBILIN (test code = 2.0 mg/dL Normal A 2073962964) BILIRUBIN (test code = Negative Negative 3457727343) NITRITE (test code = Negative Negative 9151452353) LEUK ROZINA (test code = 25/uL Negative A 9914426007) RBC/HPF (test code = See_Comment [Autom ated message] 4067635753) The system [employer] generated this result transmit ngozi reference range : 0 - 3 HPF. The refe rence range was not u sed to interpret th is result as normal/abnormal . WBC/HPF (test code = See_Comment [Autom ated message] 0313367125) The system [employer] generated this result transmit ngozi reference range : 0 - 5 HPF. The refe rence range was not u sed to interpret th is result as normal/abnormal . BACTERIA (test code = Few Negative A 5589083502) MUCOUS (test code = Slight Negative LPF A 4721911243) SQ EPITH (test code = HPF 3839942923) Lab Interpretation (test Abnormal code = 17431-8) [facility] CenterRPR Sexsueqzpwq1031-97-94 16:42:24 Test Item Value Reference Range Interpretation [...] = 10-24-2020 N Expiration Dt) Thyroid Stimulating Xnxxvyf7636-10-05 08:35:16 Test Item Value Reference Range Interpretation Comments TSH (test code = TSH) 1.170 mIU/mL 0.270-4.200 Lipid Staut6552-08-96 08:21:19 Test Item Value Reference Range Interpretation Comments Cholesterol Total 254 mg/dL 0-200 H RISK OF HE ART (test code = DISEASEPublishe d by Cholesterol Total) [employer] Cathie lyte Optimal Borderl ine [...] calculation is LDL/HDL Ratio=L DL Calc/HDL Chol DNXXIXFKRWXU4797-04-07 08:24:008.6[facility] JvdgupgEDGFPJWPHTUE2451-13-71 08:24:55049Vsdeoaqy PhzvchlSTEZWCHYDVNC8680-03-70 08:24:0027[facility] OKAXQCGDKGLE5157-91-11 08:24:27001Ystsxumr ItxwwnoDCMYDMEGWDDK8214-88-10 08:24:003.6[facility] KiwvnbtGZBOXRQCUFDJ5585-65-52 08:24:000.70[facility] SXLSPKTQQUYW8621-82-39 08:24:008.4[facility] ZscirbdLYYWCITNTHSY2999-80-85 08:24:16794Tcrlwont NaoshmpYOOOHDDLPWXL6466-29-85 08:24:0086[facility] IGRKKGAXPDGU3126-93-75 08:24:006[facility] KqzvdxeRBYTKFMQPO6403-43-22 08:24:00 11.6[facility] TrcnkieNFFSSKQZHA0263-54-28 08:24:003.78[facility]annHEMATOLOGY 2019-01-26 08:24:0013.3[facility] VebgsasICKQYRVXFY1241-42-65 08:24:0034.0[facility] JwafxkuJPZQLTTSNM1137-29-00 08:24:006.3[facility] EtwqiaqQLNZKQUICV9910-71-51 08:24:00 Test Item Value Reference Range Interpretation Comments MCH (test code = MCH) 30.7 pg 27.0-31.0 [facility] SbbfcilJZPAYRNVSD8492-99-33 08:24:0090.3[facility] HermannHEMATOLOGY 2019-01-26 08:24:0034.2[facility] LmrydiyUABOOEXEUY0328-29-31 08:24:55013Kwttrfvq IsghymqVFPHYEBORD1696-52-01 08:24:007.5[facility] LrulqgrOKBKLDPGDKOO1714-76-51 08:24:008.6[facility] VekrttlFWRKKQEECIVB5601-69-22 08:24:09886Wzeqyxri Yonis GRNNYWJXJTLZ8560-20-28 08:24:0027[facility] XaeqecyPKDAGZJPZZNU1964-32-36 08:24:00 139[facility] SmyxjseAKQFZUZCCYQY1405-71-81 08:24:003.6[facility] MCZRNVPYAVDO0417-48-25 08:24:000.70[facility] VchmfjcYBUCYBNWBPYT3859-27-24 08:24:008.4[facility] WqjwcdaHIHIAIMYOTMI1094-21-36 08:24:61058Brwxmkhe Yonis WZIVPPNXNDDE3560-93-14 08:24:0086[facility] EeexeorJXZKRCNHNVNO3115-27-93 08:24:00 6[facility] BdgxvbmAYTJYSHZYD4565-36-35 08:24:0011.6[facility] HermannHEMATOLOGY 2019-01-26 08:24:003.78[facility] XsblxjrZHTLXQATVS5586-31-42 08:24:0013.3[facility] HuelqqbXDNPHCWMRX6114-24-55 08:24:0034.0[facility] NseklnoIWDOXNMURX1693-42-41 08:24:006.3[facility] IhinwyuTVTEONEGWQ6957-38-51 08:24:00 Test Item Value Reference Range Interpretation Comments MCH (test code = MCH) 30.7 pg 27.0-31.0 [facility] DjxiwrvZSKLWIMPSC6770-86-60 08:24:0090.3[facility] HermannHEMATOLOGY 2019-01-26 08:24:0034.2[facility] IdinyaoLGSPIPEMYD5180-33-51 08:24:49923Wjfgctfr BaewnxjIJRYDXFCLR1386-21-02 08:24:007.5[facility] HermannCHEM NTGKP7178-06-18 09:14:97343Kwgdboln HermannCHEM NJHWX8623-32-16 09:14:008.5[facility]annCHEM YMQWP5277-34-34 09:14:0013.3[facility]annCHEM XHXHV9069-00-92 09:14:0024 [facility]annCHEM EXIRS3720-80-16 09:14:35875Vgdtkynm HermannCHEM PANEL 2019-01-25 09:14:0081[facility]annCHEM CUTKJ7154-90-16 09:14:002[facility]annCHEM PCWFJ8378-76-93 09:14:003.3[facility]annCHEM OXJAM2402-50-20 09:14:000.60[facility]annCHEM EEKAM3273-31-17 09:14:66190Wzuhvgdl HermannCHEM PFSAG7294-47-52 09:14:51676Gnemisej HermannCHEM VNFWN6012-90-19 09:14:008.5 [facility]annCHE[facility] MAJDO5485-11-10 09:14:0013.3[facility]annCHEM PANEL 2019-01-25 09:14:0024[facility]annCHEM YBDPX2203-72-86 09:14:25616Kkbomldk HermannCHEM SELJK0000-99-55 09:14:0081[facility]annCHEM WFJMA7704-50-01 09:14:002[facility]annCHEM VFNSD8375-37-75 09:14:003.3[facility]annCHEM GWACG8149-61-74 09:14:000.60[facility]annCHEM BAZCT9525-26-43 09:14:03728 [facility]annMOLECULAR FKAOWIVVUN4637-30-74 16:22:00Negative (01/23/19 11:22 AM)[facility] HermannMOLECULAR GTDGUAHMZY8066-58-02 16:22:00Negative (01/23/19 11:22 AM)[facility]annCHEM VYVQU0856-23-16 15:42:002.76[facility]annCHEM PANEL 2019-01-23 15:42:002.76[facility]annCHEM SHAPH5522-29-88 12:32:000.9[facility]annCHEM BQHWA9896-59-38 12:32:000.9[facility]annCHEM ODBVD0322-81-28 10:50:002.0[facility]annCHEM TUTZL9767-20-37 10:50:53072Okbldgdj HermannCHEM KEKRA6697-10-43 10:50:0023[facility]annCHEM ZSTUY3558-15-08 10:50:10345 [facility]annCHE[facility] IGLJG2878-09-10 10:50:003.1[facility]annCHEM PANEL 2019-01-23 10:50:29949Zshkgcvs HermannCHEM UODCX9418-93-67 10:50:005[facility]annCHEM BTUTP5430-29-42 10:50:000.50[facility]annCHEM LIDHN5576-33-27 10:50:007.8[facility]annCHEM VKJUO1777-49-95 10:50:0083[facility]annCHEM VHMYW6119-68-94 10:50:0010.1[facility] TvmuihoORSCBQQFJG0552-53-82 10:50:000.2 [facility] WpjursrIRBBIKGQJH0194-07-25 10:50:000.8[facility] HermannHEMATOLOGY 2019-01-23 10:50:005.5[facility] VmdoiuxMUFZWPAATP4310-42-66 10:50:002.2[facility] NyacdouNMYCLYBXBW8378-94-01 10:50:000.1[facility] EnyugsgJJCQZUUPNG2624-60-75 10:50:0063.6[facility] UopgnjnJHDRXWBHEV3463-70-23 10:50:008.9[facility] ZLWEMTMIGQ3363-51-77 10:50:002.3[facility] XzyuzqnGRYVVXOUJT8839-00-55 10:50:00 Normal (01/23/19 5:50 AM)[facility] RsrgrieNFFNXZOHLA4426-10-11 10:50:00Normal (01/23/19 5:50 AM)[facility] EecmiviXVGDTFPGOU5069-18-05 10:50:0025.1[facility] YbutgsiOFYCVYOVOW8510-67-21 10:50:0013.1[facility] ToudbedEBKFFFHDKY4134-50-10 10:50:24088Qygdljqi BrlgpksKYZARASCMH3035-49-64 10:50:007.7[facility] VYEEZCZBYN2868-64-56 10:50:008.6[facility] PhmsknsMBZJFOHTJL7472-33-47 10:50:00 10.0[facility] ImsqbpyKHSLWGIYVT2152-54-94 10:50:0034.6[facility] HermannHEMATOLOGY 2019-01-23 10:50:0028.7[facility] MdioudvWGUAXKGBKK6001-12-44 10:50:0087.8[facility] GthvoavAJZAOLYJLX3724-97-54 10:50:00 Test Item Value Reference Range Interpretation Comments MCH (test code = MCH) 30.4 pg 27.0-31.0 [facility] ZukmoyrXURQZXQCXZ9934-79-33 10:50:003.27[facility] HermannHEMATOLOGY 2019-01-23 10:50:19719Qrbdpmqj HermannCHEM WZWJB4496-29-63 10:50:002.0[facility]annCHEM JQWAZ5664-57-40 10:50:52605Klngcwic HermannCHEM KPRVT2865-99-99 10:50:0023[facility]annCHEM HXYBH6502-91-16 10:50:73218Ttdwjidp Yonis OEHHRUCPOM4103-25-70 10:50:007.7[facility] HermannCHEM FGNNQ3071-10-25 10:50:003.1 [facility]annCHEM XPOKS5821-85-92 10:50:81488Veyciuvp HermannCHEM PANEL 2019-01-23 10:50:005[facility] HermannCHEM FLEKQ4664-86-63 10:50:000.50[facility] HermannCHEM WRXHO7292-11-02 10:50:007.8[facility]annCHEM RFJMX0954-69-97 10:50:0083[facility]annCHEM LZVEU2168-77-20 10:50:0010.1[facility] JZLKOLRFYL3261-87-02 10:50:000.2[facility] ZronreqDQVVBVQHYZ1409-21-63 10:50:000.8 [facility] WtflgddEMQBOXAFWH1471-61-95 10:50:005.5[facility] HermannHEMATOLOGY 2019-01-23 10:50:002.2[facility] RuborjkSNDLPXTCQY7216-41-07 10:50:000.1[facility] DncfvssRDSCGXQOTB7299-24-95 10:50:0063.6[facility] XrovqoiZUSCKQZPGZ6704-72-61 10:50:008.9[facility] NqrqthmDSTIBAKYBH6004-67-85 10:50:002.3[facility] ZJKHXQNFUU7818-25-26 10:50:00Normal (01/23/19 5:50 AM)[facility]annHEMATOLOGY 2019-01-23 10:50:00Normal (01/23/19 5:50 AM)[facility] TkdydfgHFFBIZKPWG5571-05-89 10:50:0025.1[facility] RmdzcgjZCRPWCLBWL1133-71-93 10:50:0013.1[facility] EKXBJOSMPK2245-49-91 10:50:008.6[facility] AlgdezdGHWIBOEZVX1018-41-79 10:50:00 10.0[facility] LtvhruwKMBIBKUXQP1646-45-70 10:50:0034.6[facility]annHEMATOLOGY 2019-01-23 10:50:0028.7[facility] YxozcqmFTQWAIVMYV3830-82-90 10:50:0087.8[facility] YjqifjrRKRXHKMYBJ9886-13-69 10:50:00 Test Item Value Reference Range Interpretation Comments MCH (test code = MCH) 30.4 pg 27.0-31.0 [facility] JbfonjrEAEKWMJPDI0278-85-31 10:50:003.27[facility] HermannCHEM PANEL 2019-01-22 11:32:002.4[facility] HermannCHEM WNOZQ0648-00-69 11:32:002.4[facility]annCHEM XAPWF0838-50-81 09:04:003.0[facility]annCHEM OIJRT9568-15-92 09:04:003.0[facility]annURINE AND AAOVJ8666-83-27 07:14:00 Test Item Value Reference Range Interpretation Comments UA Spec Grav (test code = UA Spec 1.014 1 Grav) [facility] UJMTY7386-15-80 07:14:00 Test Item Value Reference Range Interpretation Comments UA pH (test code = UA pH) 6.0 1 5.0-8.0 [facility] KTBWO6643-46-22 07:14:00Negative (01/22/19 2:14 AM) [facility] LLAML2168-24-41 07:14:00Negative *NA*(01/22/19 2:14 AM) [facility] MKZBF5807-09-24 07:14:00Negative *NA*(01/22/19 2:14 AM) [facility] BPIZG3825-22-56 07:14:00Negative *NA*(01/22/19 2:14 AM) [facility] UKTAJ0173-85-36 07:14:00Negative (01/22/19 2:14 AM) [facility] EJWIE2176-78-31 07:14:00Negative (01/22/19 2:14 AM) [facility] OGNZK6855-20-00 07:14:00Negative (01/22/19 2:14 AM) [facility] PCDMT7748-83-54 07:14:00<1[facility] GEZUB9317-59-78 07:14:0025[facility] VJARA4558-74-96 07:14:002 [facility] VEKFH2922-56-19 07:14:00Light Yellow *NA*(01/22/19 2:14 AM)[facility] FWNJF2585-72-59 07:14:00Clear (01/22/19 2:14 AM) [facility] MORLX1183-05-86 07:14:00 Test Item Value Reference Range Interpretation Comments UA Spec Grav (test code = UA Spec 1.014 1 Grav) [facility] HVABT8714-61-62 07:14:00 Test Item Value Reference Range Interpretation Comments UA pH (test code = UA pH) 6.0 1 5.0-8.0 [facility] KHNXI9973-04-00 07:14:00Negative (01/22/19 2:14 AM) [facility] YBJAL6138-84-66 07:14:00Negative *NA*(01/22/19 2:14 AM) [facility] CAQQU2510-36-45 07:14:00Negative *NA*(01/22/19 2:14 AM) [facility] FOLKZ5204-62-90 07:14:00Negative *NA*(01/22/19 2:14 AM) [facility] SCARB9545-56-44 07:14:00Negative (01/22/19 2:14 AM) [facility] MHBMD3560-78-79 07:14:00Negative (01/22/19 2:14 AM) [facility] QBJYW2705-04-58 07:14:00Negative (01/22/19 2:14 AM) [facility] ZRDAW1376-50-64 07:14:00<1[facility] BUWHW7748-40-53 07:14:0025[facility] QCREZ0174-98-30 07:14:002 [facility] GQHXI4872-43-40 07:14:00Light Yellow *NA*(01/22/19 2:14 AM)[facility] AZUTZ0166-99-48 07:14:00Clear (01/22/19 2:14 AM) [facility] MurkolsZEJWO6619-03-33 05:16:000.90[facility] JjqqtimKAKMB4604-13-69 05:16:000.90[facility] HermannCARDIAC ADCGTMX5895-07-66 05:01:0049[facility] CHEM BWPJR9141-69-06 05:01:000.6[facility] HermannCHEM LXXUW5892-29-93 05:01:38975 [facility]annCHEM SAXFV7946-92-58 05:01:004.0[facility]annCHEM PANEL 2019-01-22 05:01:0017[facility]annCHEM SMZAQ2240-30-46 05:01:0025[facility]annCHEM NEIOM9346-75-48 05:01:008.1[facility]annCHEM ETQZX3341-61-83 05:01:00 Test Item Value Reference Range Interpretation Comments B/C Ratio (test code = B/C Ratio) 20 1 6-25 [facility]annCHEM AGTEG9848-73-70 05:01:00 Test Item Value Reference Range Interpretation Comments A/G Ratio (test code = A/G Ratio) 1.0 1 0.7-1.6 [facility]annCHEM NVIHS4436-00-01 05:01:004.1[facility]annCHEM PANEL 2019-01-22 05:01:006.90[facility] AptmvfgFCIFNWEWXNJRJ1782-70-72 05:01:00Negative *NA*(01/22/19 12:01 AM)[facility] RyvovrgAYQLNROXYS0459-82-15 05:01:000.1[facility] SkbfrwlBFGOUNYCWN3085-44-11 05:01:000.7[facility] YmsedwuTNCJKDYLCL5402-15-14 05:01:000.0[facility] GpdbnwhCJHQOMFGRK6011-97-22 05:01:000.0[facility] UJALUKINCA2013-85-70 05:01:000.9[facility] JdvpbmmZIYHJAVOEQ4122-11-82 05:01:008.6 [facility] HsuziciIXLIYNQSQA2400-92-20 05:01:000.6[facility] HermannHEMATOLOGY 2019-01-22 05:01:0086.5[facility] JcgsfocQENPZWOYKM5835-35-00 05:01:005.7[facility] TnkfsjdQUCHSKQXCL2201-01-87 05:01:006.9[facility] EntykijNFQHSXMRGA9184-33-10 05:01:009.9[facility] QzvltaaCPTLCHWWFS7399-93-77 05:01:0032.8[facility] TOGHGEPDIT6622-53-61 05:01:0013.6[facility] PqdahvuUADOUEOREM9403-79-05 05:01:00 443[facility] AyyjuogNFYLCRPCGV2403-01-82 05:01:007.3[facility] HermannHEMATOLOGY 2019-01-22 05:01:0014.0[facility] VozaaehFDBMOLKQBE5461-15-82 05:01:004.85[facility] TuolhzuAMFTYMQTHO6363-27-33 05:01:0042.7[facility] UaeyytkWTDUINPDVV7007-70-36 05:01:00 Test Item Value Reference Range Interpretation Comments MCH (test code = MCH) 29.0 pg 27.0-31.0 [facility] LwhuntyDYMOYKNOXY2426-19-05 05:01:0088.2[facility]annHEMATOLOGY 2019-01-22 05:01:00 Test Item Value Reference Range Interpretation Comments INR (test code = INR) 0.96 1 0.85-1.17 [facility] QvwmjbmPAROFOSRWR0125-53-36 05:01:00 Test Item Value Reference Range Interpretation Comments PT (test code = PT) 12.6 s 12.0-14.7 [facility] HlnglabBUJRFUMOBY1827-80-48 05:01:00 Test Item Value Reference Range Interpretation Comments PTT (test code = PTT) 25.9 s 22.9-35.8 [facility] WUQIGFS3905-58-73 05:01:00Negative (01/22/19 12:01 AM) [facility] YXJTWOJ4491-68-13 05:01:00<0.02[facility] CARDIAC ILUSZSZ5856-19-68 05:01:0049[facility] HermannCHEM DPIOZ9859-48-14 05:01:000.6[facility]annCHEM WMAXZ4989-23-60 05:01:55885Xvcqziyw HermannCHEM CHQAB2325-02-30 05:01:004.0[facility]annCHEM CCNJE0841-21-62 05:01:0017 [facility]annCHEM HBBMU4264-16-99 05:01:0025[facility]annCHEM PANEL 2019-01-22 05:01:008.1[facility]annCHEM CLHMO6473-37-19 05:01:00 Test Item Value Reference Range Interpretation Comments B/C Ratio (test code = B/C Ratio) 20 1 6-25 [facility]annCHEM TZOVG7589-33-44 05:01:00 Test Item Value Reference Range Interpretation Comments A/G Ratio (test code = A/G Ratio) 1.0 1 0.7-1.6 [facility]annCHEM AMTPE1312-67-41 05:01:004.1[facility]annCHEM PANEL 2019-01-22 05:01:006.90[facility] FsvwlkwHOLFJHMXMTYSS4994-70-94 05:01:00Negative *NA*(01/22/19 12:01 AM)[facility] VmtmesiSJHCIALMFW4427-42-30 05:01:000.1[facility] EnxepvaVNMWSLLPGJ8656-88-59 05:01:000.7[facility] TnwqcliVRHHBDPGKO5823-40-39 05:01:000.0[facility] MoweuytPNEPSVEGJK3551-79-28 05:01:000.0[facility] YLEUAVVAWO5515-36-83 05:01:000.9[facility] KqnepwrBKVDNJZWKG9852-01-61 05:01:008.6 [facility] AvoqgofBWAJWCDDHY4561-26-52 05:01:000.6[facility]annHEMATOLOGY 2019-01-22 05:01:0086.5[facility] ZybbddvXTCPPPEZRC3548-39-15 05:01:005.7[facility] BniqqfxGMAZZXWFIA1962-91-11 05:01:006.9[facility] CbxkdsdXZCCZVUOGG9341-31-87 05:01:009.9[facility] LdhslgyAFYCIFHBDO9122-58-87 05:01:0032.8[facility] YSYTOGPVPF3490-99-62 05:01:0013.6[facility] VdyobonTZVUXECBXD8734-55-98 05:01:[address] [facility] HospitalBqpgvcnZNESXHRYLT4441-52-65 05:01:007.3[facility] HospitalAT[facility] 2019-01-22 05:01:[address]0MearriCHI [address] [facility] HospitalZbnroqzUZMZSUZWSO7875-30-00 05:01:004.85MeTexas Health FriscoRirsmurULJIKGIRYM4748-34-56 05:01:0042.7MearriCHI [address] [facility] HospitalLogwpgsTKZIMPLDHO9408-08-36 05:01:00 Test Item Value Reference Range Interpretation Comments MCH (test code = MCH) 29.0 pg 27.0-31.0 [facility] HospitalJogfbzyHKQKVAXKOY1353-28-01 05:01:0088.2MC[facility] HospitalATOLOGY 2019-01-22 05:01:00 Test Item Value Reference Range Interpretation Comments INR (test code = INR) 0.96 1 0.85-1.17 [facility] HospitalEgicznnLNVBLUJCTZ5777-86-07 05:01:00 Test Item Value Reference Range Interpretation Comments PT (test code = PT) 12.6 s 12.0-14.7 [facility] HospitalVkyldagXJFUFZVTFH9875-12-22 05:01:00 Test Item Value Reference Range Interpretation Comments PTT (test code = PTT) 25.9 s 22.9-35.8 [facility] BANK FORPJMD3431-90-65 05:01:00Negative (01/22/19 12:01 AM) [facility] PUZXXSI7230-71-46 05:01:00<0.02MeTexas Health FriscoDAU9E 2018-02-20 14:36:00 Test Item Value Reference Range [...] 0.00-0.01 N code = ETOHU) Comprehensive Metabolic [id number] 14:36:00 Test Item Value Reference Range Interpretation [...] the [employer],[email or web address] :[email or web address] ep.nih.gov Urinalysis [id number] 14:32:00 Test Item Value Reference Range Interpretation Comments Color (test code = COLOR) Yellow Yellow,Straw,Pl N yellow Clarity (test code = Clear Clear N CLAR) Specific [place] (test 1.024 1.001-1.035 N code = SPGR) [...] code = Few /HPF BACT) CBC with [id number] 14:21:00 Test Item Value Reference Range Interpretation [...] code = ALYMPH) 3.0 K/cumm 0.5-4.6 N Ross Abs (test code = AMONO) 0.5 K/cumm 0.0-1.2 N Eos Abs (test code = AEOS) 0.19 K/cumm 0.00-0.74 N Baso Abs (test code = ABASO) 0.1 K/cumm 0.00-0.21 N
--- NOTE | 2021-09-16 00:50 | ER ---
Nurse's Notes [facility] Name: Tiffany Quinn Age: 51 yrs Sex: Female : 1970 Arrival Date: 09/15/2021 Time: 20:05 Bed 17 Private MD: Diagnosis: Anxiety disorder, unspecified Presentation: 09/15 20:19 Chief complaint: Patient states: I feel like I am going to faint and like I have a ld1 fever, my knees were buckling. Coronavirus screen: At this time, the client does not indicate any symptoms associated with coronavirus-19. Ebola Screen: No symptoms or risks identified at this time. Initial Sepsis Screen: Does the patient meet any 2 criteria? No. Patient's initial sepsis screen is negative. Does the patient have a suspected source of infection? No. Patient's initial sepsis screen is negative. Risk Assessment: Do you want to hurt yourself or someone else? Patient reports no desire to harm self or others. Onset of symptoms was September 15, 2021. 20:19 Method Of Arrival: Ambulatory ld1 20:19 Acuity: MANUEL 4 ld1 Triage Assessment: 20:22 Headache History: Denies prior headaches. General: Appears in no apparent distress. ld1 uncomfortable, Behavior is anxious. Pain: Denies pain. EENT: No signs and/or symptoms were reported regarding the EENT system. Neuro: Level of Consciousness is awake, alert, obeys commands, Oriented to person, place, time, situation. Cardiovascular: Capillary refill < 3 seconds Patient's skin is warm and dry. Respiratory: Airway is patent Respiratory effort is even, unlabored, Respiratory pattern is regular, symmetrical. GI: Abdomen is flat, non-distended. : No signs and/or symptoms were reported regarding the genitourinary system. Derm: No signs and/or symptoms reported regarding the dermatologic system. Musculoskeletal: No signs and/or symptoms reported regarding the musculoskeletal system. 09/16 01:35 Pain: Denies pain. Also complains of. bb 01:35 Pain: Denies pain. Pain began Also complains of restlessness/anxiety. bb 01:35 Pain: Denies pain. Pain. 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 - Social history:: Smoking status: Patient denies any tobacco usage or history of. Patient uses street drugs. Screenin/23 01:35 Abuse screen: Denies threats or abuse. Nutritional screening: No deficits noted. bb Tuberculosis screening: No symptoms or risk factors identified. Fall Risk None identified. Assessment: 01:35 General: Appears uncomfortable, unkempt, Restless.. Behavior is cooperative, anxious. bb Pain: Denies pain. Neuro: Level of Consciousness is awake, alert, obeys commands, Oriented to person, place, time, situation. Cardiovascular: No deficits noted. Heart tones S1 S2. Respiratory: No deficits noted. Airway is patent Respiratory effort is even, unlabored, Respiratory pattern is regular, symmetrical. GI: No signs and/or symptoms were reported involving the gastrointestinal system. : No signs and/or symptoms were reported regarding the genitourinary system. EENT: No signs and/or symptoms were reported regarding the EENT system. Derm: No deficits noted. Skin is intact. Musculoskeletal: No deficits noted. Capillary refill < 3 seconds, Range of motion: intact in all extremities. Vital Signs: 09/15 20:19 BP 136 / 117; Pulse 112; Resp 20; Temp 98.4(O); Pulse Ox 97% on R/A; Weight 84.82 kg; ld1 Height 5 ft. 1 in. (154.94 cm); Pain 0/10; 09/16 01:50 BP 132 / 103; Pulse 102; Resp 20 S; Temp 98.2(O); Pulse Ox 97% on R/A; bb 09/15 20:19 Body Mass Index 35.33 (84.82 kg, 154.94 cm) ld1 ED Course: 09/15 20:05 Patient arrived in ED. ja2 20:22 Triage completed. ld1 20:22 Arm band placed on right wrist. ld1 09/16 00:33 Guanako Palomino PA is PHCP. jr8 00:33 Bill Palm MD is Attending Physician. jr8 00:49 Andrea Angel MD is Referral Physician. la1 01:33 Keena Lazaro, RN is Primary Nurse. bb 01:35 Patient has correct armband on for positive identification. Bed in low position. Call bb light in reach. Side rails up X 1. Pulse ox on. NIBP on. 01:35 No provider procedures requiring assistance completed. bb 01:50 Patient did not have IV access during this emergency room visit. bb Administered Medications: 01:35 Drug: hydrOXYzine 50 mg Route: PO; bb Outcome: 00:50 Discharge ordered by . la1 01:50 Discharged to home ambulatory. bb 01:50 Condition: stable 01:50 Discharge instructions given to patient, Instructed on discharge instructions, follow up and referral plans. Demonstrated understanding of instructions, follow-up care. 01:57 Patient left the ED. bb Signatures: Keena Lazaro, RN RN bb Guanako Palomino PA PA jr8 Brendan Williamson, SHAFT MECHANIC-C SHAFT MECHANIC-Cla1 Radha Paez RN RN ld1 Niya Rodriguez
--- NOTE | 2021-09-16 00:50 | EDPHYS ---
Physician Documentation [facility] Name: Tiffany Quinn Age: 51 yrs Sex: Female : 1970 Arrival Date: 09/15/2021 Time: 20:05 Bed 17 Private MD: ED Physician Bill Palm HPI: 09/16 01:04 This 51 yrs old Female presents to ER via Ambulatory with complaints of anxiety. la1 01:04 This is a 51-year-old female patient presented to the emergency room for the third time la1 in the last 24 hours for anxiety. Patient has been evaluated twice before this and was given hydroxyzine to take at home. Patient stated that she just felt like she had an overwhelming amount of anxiety and wanted to come back for further evaluation. Denies any other symptoms at this time.. 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 - Social history:: Smoking status: Patient denies any tobacco usage or history of. Patient uses street drugs. ROS: 09/16 01:07 Constitutional: Negative for fever, chills, and weight loss, Cardiovascular: Negative jr8 for chest pain, palpitations, and edema, Respiratory: Negative for shortness of breath, cough, wheezing, and pleuritic chest pain, Abdomen/GI: Negative for abdominal pain, nausea, vomiting, diarrhea, and constipation, Back: Negative for injury and pain, MS/Extremity: Negative for injury and deformity, Skin: Negative for injury, rash, and discoloration, Neuro: Negative for headache, weakness, numbness, tingling, and seizure. Psych: Positive for anxiety. Exam: 01:07 Constitutional: This is a well developed, well nourished patient who is awake, alert, jr8 and in no acute distress. Cardiovascular: Regular rate and rhythm with a normal S1 and S2. No gallops, murmurs, or rubs. Normal PMI, no JVD. No pulse deficits. Respiratory: Lungs have equal breath sounds bilaterally, clear to auscultation and percussion. No rales, rhonchi or wheezes noted. No increased work of breathing, no retractions or nasal flaring. Abdomen/GI: Soft, non-tender, with normal bowel sounds. No distension or tympany. No guarding or rebound. No evidence of tenderness throughout. Skin: Warm, dry with normal turgor. Normal color with no rashes, no lesions, and no evidence of cellulitis. MS/ Extremity: Pulses equal, no cyanosis. Neurovascular intact. Full, normal range of motion. Neuro: Awake and alert, GCS 15, oriented to person, place, time, and situation. Cranial nerves II-XII grossly intact. Motor strength 5/5 in all extremities. Sensory grossly intact. Cerebellar exam normal. Normal gait. 01:07 Psych: Behavior/mood is cooperative, anxious, Affect is animated, Oriented to person, place, time, Patient has no thoughts/intents to harm self or others. Judgement / Insight is normal. Memory is normal. Delusions/hallucinations are not present. Vital Signs: 09/15 20:19 BP 136 / 117; Pulse 112; Resp 20; Temp 98.4(O); Pulse Ox 97% on R/A; Weight 84.82 kg; ld1 Height 5 ft. 1 in. (154.94 cm); Pain 0/10; 09/16 01:50 BP 132 / 103; Pulse 102; Resp 20 S; Temp 98.2(O); Pulse Ox 97% on R/A; bb 09/15 20:19 Body Mass Index 35.33 (84.82 kg, 154.94 cm) ld1 MDM: 00:34 Patient medically screened. jr8 00:49 Data reviewed: vital signs, nurses notes, and as a result, I will discharge patient. la1 Data interpreted: Pulse oximetry: on room air is 97 %. Interpretation: normal. Counseling: I had a detailed discussion with the patient and/or guardian regarding: the historical points, exam findings, and any diagnostic results supporting the discharge/admit diagnosis, the need for outpatient follow up, a family practitioner, to return to the emergency department if symptoms worsen or persist or if there are any questions or concerns that arise at home. 01:07 ED course: I had a detailed discussion with patient that she needs to seek outpatient jr8 treatment for anxiety if she is having this many issues. That I will be happy to give her a hydroxyzine here but that I am not going to give her benzodiazepines or pain medication. Patient tried to ask for Ativan a couple times but conceded to the hydroxyzine finally.. Administered Medications: 01:35 Drug: hydrOXYzine 50 mg Route: PO; bb Disposition Summary: 09/16/21 00:50 Discharge Ordered Location: Home la1 Problem: new la1 Symptoms: have improved la1 Condition: Stable la1 Diagnosis - Anxiety disorder, unspecified la1 Followup: la1 - With: Andrea Angel MD - When: Tomorrow - Reason: Recheck today's complaints, Continuance of care, Re-evaluation by your physician Discharge Instructions: - Discharge Summary Sheet la1 - Panic Attack la1 Forms: - Medication Reconciliation Form la1 - Thank You Letter la1 - Antibiotic Education la1 - Prescription Opioid Use la1 Addendum: 09/17/2021 09:23 Co-signature as Attending Physician, Bill Palm MD I agree with the assessment and c rivero plan of care. Signatures: Bill Palm MD MD cha Ballard, Brenda, RN RN bb Guanako Palomino PA PA jr8 Brendan Williamson, AD TAKER-C AD TAKER-Cla1 Radha Paez, RN RN ld1 Corrections: (The following items were deleted from the chart) 09/16 01:06 01:04 Constitutional: Negative for fever, chills, and weight loss, ENT: Negative for la1 injury, pain, and discharge, la1 01:07 01:06 Constitutional: Negative for fever, chills, and weight loss, Cardiovascular: jr8 Negative for chest pain, palpitations, and edema, Respiratory: Negative for shortness of breath, cough, wheezing, and pleuritic chest pain, la1 01:07 01:06 Abdomen/GI: Negative for abdominal pain, nausea, vomiting, diarrhea, and jr8 constipation, Back: Negative for injury and pain, MS/Extremity: Negative for injury and deformity, Skin: Negative for injury, rash, and discoloration, la1
[2021-09-16] MEDS ORDERED: hydrOXYzine HCL 25 MG TAB ONE (01:35)
[2021-09-16 02:13] VITALS: O2SAT 97
[2021-09-16 02:14] VITALS: BP 132/103; TEMP 98.2
== END 2021-09-16 01:57 | disposition home or self-care (01) ==
LOC: ER 19:59
DX: F41.9 Anxiety disorder, unspecified (principal); F31.9 Bipolar disorder, unspecified; Z98.82 Breast implant status; Z88.5 Allergy status to narcotic agent; Z88.8 Allergy status to other drugs, medicaments and biological substances
CPT/HCPCS: 99283

== ENCOUNTER 2021-09-16 15:06 | Emergency (ER) | payer OTHER ==
--- OUTSIDE RECORDS SUMMARY | 2021-09-16 15:24 | XMS REPORT | Continuity of Care Document ---
:1970 Author Organization [facility] t Address [address] [place] [address] Care Team Providers Name Role Phone UNKNOWN [...] Policy Number Effective Date Expiration Date S [facility] OF [place] - [id number] 2020 [employer] 00:00:00 (MEDICARE REPLACEMENT/ADVANT AGE - HMO) Problems Condition Condition Condition Status Onset Resolution Last Treating Co mments Source Name Details Category Date Date Treatment Clinician Date LOW PB Diagnosis Active 2019-01-22 Mem oria 01-21 01:52:00 l LOW PB 00:00: Yonis 00 Active 01/21/2019 [place] INFECTIOUS Diagnosis Active 2019-02-06 Memoria GASTROENTE 01-21 08:58:00 l RITIS AND 00:00: [place] COLITIS INFECTIOUS 00 GASTROENTE RITIS AND COLITIS Active 01/21/2019 [facility] Irregular Irregular Disease Active Uni vers menstrual menstrual 8-15 ity of cycle cycle 00:00: [address] Skin Skin Disease Active Univers lesion lesion 8-15 ity of 00:00: [address] Psychiatri Psychiatri Disease Active U nivers c disorder c disorder 8-15 it y of 00:00: [address] Well woman Well woman Disease Active U nivers exam with exam with 8-15 ity of routine routine 00:00: [place] gynecologi gynecologi 00 Me dical nicky exam nicky exam Branch INFECTIOUS Diagnosis Active 2019-02-06 Memoria GASTROENTE 08:58:00 l RITIS AND Yonis COLITIS, INFECTIOUS GASTROENTE RITIS AND COLITIS, Active [facility] Allergies, Adverse Reactions, Alerts Allergy Allergy Status Severity Reaction(s) Onset Inactive Treating Comm ents Source Name Type Date Date Clinician NO KNOWN Drug Active Univers ALLERGIE Class ity of S [facility] Phenerga Phenerga Active [place] Social History Social Habit Start Date Stop Date Quantity Comments Source History of Cigarette Smoker Universi ty of tobacco use [facility] Tobacco Comment 2-3 cigs a day [facility] Exposure to Not sure [place] of SARS-CoV-2 [facility] (event) [place] Tobacco use and 2016-06-08 2016-06-08 [facility] 00[facility]00:00 [facility] Alcohol intake 2016-06-08 2016-06-08 0 /d University of 00:00:00 00:00:00 [facility] Sex Assigned At [birth year] Universit y of 00:00:00 00:00:00 [facility] Smoking Status Start Date Stop Date Source Social History 2019-01-22 05:00:12 [facility] Her urena Current some day smoker 2016-06-08 00:00:00 [facility] Medications Ordered Filled Start Stop Current Ordering Indication Dosage Frequency Signature Comments Components Source Medication Medication Date Date Medication? Clinician (SIG) Name Name cefTRIAXone 2020-10- No 1000mg 1,000 mg, Univers (ROCEPHIN) 17 11-17 IV ity of 1,000 mg in 08:30: 08:01 [place], [place] NaCl 0.9% 00 :00 ONCE, 1 [...] 09/09/21 at 2330, RANDA amoxicillin 2020-10 Yes [id number] 500mg Take 1 Univers 500 mg 11-10 capsule by ity of capsule 00:00: mouth 3 [place] 00 (three) Medical times Branch daily. ondansetron 2019-10- No 4mg 4 mg, [facility] ers (ZOFRAN-ODT 12-01 Oral, ity of ) 15:15: 14:16 ONCE, 1 [place] disintegrat 00 :00 dose, Mon Med ical ing tablet 09/30/20 at [facility] 4 mg 0915, Routine ondansetron 2019-10- No 4mg 4 mg, [facility] ers (ZOFRAN-ODT 12-01- Oral, ity of ) 14:30: 13:32 ONCE, 1 [place] disintegrat 00 :00 dose, Mon Med ical ing tablet 09/30/20 at [facility] nc 4 mg 0830, Routine ondansetron 2019-10 Yes [id number] 4mg Take 1 Univers 4 mg 2-07 tablet by ity of disintegrat 00:00: mouth [place] ing tablet 00 every 8 Medica l (eight) Branch hours as needed for Nausea and Vomiting (N/V). ondansetron 2019-10 Yes [id number] 4mg Take 1 Univers 4 mg 2-07 tablet by ity of disintegrat 00:00: mouth [place] ing tablet 00 every 8 Medica l (eight) Branch hours as needed for Nausea and Vomiting (N/V). ondansetron 2019-10 Yes [id number] 4mg Take 1 Univers 4 mg 2-07 tablet by ity of disintegrat 00:00: mouth [place] ing tablet 00 every 8 Medica l (eight) Branch hours as needed for Nausea and Vomiting (N/V). ondansetron 2019-10 Yes [id number] 4mg Take 1 Univers 4 mg 2-07 tablet by ity of disintegrat 00:00: mouth [place] ing tablet 00 every 8 Medica l (eight) Branch hours as needed for Nausea and Vomiting (N/V). ciprofloxac 2019 Yes 500 mg = 1 Memoria in 500 mg 4-04 tab, PO, l oral tablet 17:35: [id number], X Yonis 00 4 day, # 8 [...] 4-04 tab, PO, l oral tablet 17:35: [id number], X [place] 00 4 day, # 8 tab, 0 [...] s with feeding tube less than 14 [place] (Dobhoff, J-tube etc) and pediatric and patients. Potassium No Notes: Memori a Chloride 4-03 (Same as: l 13:26: K-Dur 20) [place] "Do Not Crush" Give with food and full glass of water For patients unable to swallow tablet, dissolve in one half glass of water. Allow about 2 minutes for the tablets to disintegra te. Stir before giving to prepare slurry and administer . Please exclude Patient s with feeding tube less than 14 [place] (Dobhoff, J-tube etc) and pediatric and patients. Strattera No 0.5 mg/kg, Me moria 01-24 Route: PO, l 14:00: QAM, Yonis Dosing Weight 75, kg, Start date: 01/24/19 9:00:00 CDT, Duration: 30 day, Stop date: 02/22/19 9:00:00 CDT Strattera 0 No 0.5 mg/kg, Me moria 402 Route: PO, l 14:00: QAM, [place] 00 Dosing Weight 75, kg, Start date: [...] Memoria 4- (Same as: l 15:00: Flagyl) [place] 00 Take with food/ avoid alcohol Cipro No Notes: February Memori a 4- interfere l 15:00: w/enteral [place] 00 feedings - Take 1 hr before [...] PO, ONCE, l mEq oral 14:20: 0 [place] tablet, 00 Refill(s) extended release Metronidazo No 500 mg, Mem oria le 500 MG 4-01 PO, l Oral Tablet 14:20: [id number], 0 [place] [Flagyl] 00 Refill(s) Ciprofloxac No 500 mg, Mem oria in 500 MG 01 PO, l Oral Tablet 14:20: [id number], 0 [place] [Cipro] 00 Refill(s) potassium Yes 40 mEq, Memor ia chloride 20 -01 PO, ONCE, l mEq oral 14:20: 0 [place] tablet, 00 Refill(s) extended release Metronidazo No 500 mg, Mem oria le 500 MG 4-01 PO, l Oral Tablet 14:20: [id number], 0 H [place] [Flagyl] 00 Refill(s) Ciprofloxac No 500 mg, Mem oria in 500 MG 4-01 PO, l Oral Tablet 14:20: [id number], 0 Yonis [Cipro] 00 Refill(s) Potassium No [...] s with feeding tube less than 14 [place] (Dobhoff, J-tube etc) and pediatric and [...] s with feeding tube less than 14 [place] (Dobhoff, J-tube etc) and pediatric and [...] tab, PO, l Tablet 21:08: BID, 0 [place] [Risperdal] 00 Refill(s) Strattera Yes 0.5 mg/kg, [...] tab, PO, l Tablet 21:08: BID, 0 [place] [Risperdal] 00 Refill(s) Zosyn No Notes: Memoria [...] oria 3-31 to exceed l 15:03: 400mg/day. [place] 00 (Same As: Ultram) Tramadol No Notes: [...] 01-22 Route: IM, l 09:47: Drug form: [place] 00 PDR/INJ, PRN, Dosing Weight 75.994, kg, [...] 01-22 Route: IM, l 09:47: Drug form: [place] PDR/INJ, PRN, Dosing Weight 75.994, kg, PRN Blood Glucose Results, Start date: 01/22/19 4:47:00 CDT, Duration: 30 day, Stop date: 02/21/19 4:46:00 CDT Dextrose 2018- No 12.5 gm, Memor ia 50% Syringe 3-31 25 mL, l 09:47: Route: [place] 00 IVP, Drug Form: INJ, Dosing Weight [...] moria IV 3-31 1,000 l 08:52: ml/hr, [place] 00 Infuse Over: 1 hr, Route: IV, [...] 0.9% 3-31 Same as: l 04:52: BD [place] Posiflush Sterile NS (Bolus) No 1,000 mL, Me moria IV 3-31 1,000 l 04:51: ml/hr, [place] 00 Infuse Over: 1 hr, Route: IV, 1,000, Drug form: INJ, ONCE, Priority: STAT, Dosing Weight 75.994 kg, Start date: 01/21/19 23:51:00 CDT, Stop date: 01/21/19 23:51:00 CDT NS (Bolus) No 1,000 mL, Me moria IV 01-22 1,000 l 04:51: ml/hr, [place] 00 Infuse Over: 1 hr, Route: IV, [...] by ity of mg tablet 14:02: mouth [place] [address] every 6 Medical (six) Branch hours as needed. CLONAZEPAM 2016-0 Yes Take by Uni vers (KLONOPIN 8-15 mouth. ity of ORAL) 14:02: [address] Branch CITALOPRAM 2016-0 Yes Take by Uni vers HYDROBROMID 8-15 mouth. ity of E 14:02: [place] (CITALOPRAM 27 Medical ORAL) Branch ibuprofen 2016-0 Yes 200mg Take 200 Uni vers (ADVIL) 200 8-15 mg by ity of mg tablet 14:02: mouth [place] [address] every 6 Medical (six) Branch hours as needed. CLONAZEPAM 2016-0 Yes Take by Uni vers (KLONOPIN 8-15 mouth. ity of ORAL) 14:02: [address] Branch CITALOPRAM 2016-0 Yes Take by Uni vers HYDROBROMID 8-15 mouth. ity of E 14:02: [place] (CITALOPRAM 27 Medical ORAL) Branch ibuprofen 2016-0 Yes 200mg Take 200 Uni vers (ADVIL) 200 8-15 mg by ity of mg tablet 14:02: mouth [place] [address] every 6 Medical (six) Branch hours as needed. CLONAZEPAM 2016-0 Yes Take by Uni vers (KLONOPIN 8-15 mouth. ity of ORAL) 14:02: [place] [address] Medical Branch CITALOPRAM 2016-0 Yes Take by [...] Hospital Heart rate 2021-09-10 08:01:00 87 /min [facility] Respiratory rate 2021-09-10 08:01:00 20 /min [facility] [place] [facility] Oxygen saturation in 2021-09-10 08:01:00 98 /min University of Arterial blood by [place] [employer] [facility] Pulse oximetry Branch Body temperature 2021-09-10 04:28:51 37.17 Ruthann [facility] [place] [facility] Body height 2021-09-10 04:26:00 154.9 cm [facility] Body weight 2021-09-10 04:26:00 81.647 kg [facility] BMI 2021-09-10 04:26:00 34.01 kg/m2 [facility] Systolic blood 2021-09-09 20:06:00 150 mm[Hg] Univer sity of [facility] Diastolic blood 2021-09-09 20:06:00 89 mm[Hg] Unive rsity of [facility] Heart rate 2021-09-09 20:06:00 108 /min [facility] Body temperature 2021-09-09 20:06:00 37.22 Ruthann [facility] [place] [facility] Respiratory rate 2021-09-09 20:06:00 18 /min [facility] [place] [facility] Oxygen saturation in 2021-09-09 20:06:00 99 /min University of Arterial blood by [employer] nicky Pulse oximetry Branch Body weight 2021-09-09 [...] 98 /min University of Arterial blood by [facility] nicky Pulse oximetry Branch Body temperature 2020-09-30 [...] 98 /min University of Arterial blood by [facility] nicky Pulse oximetry Branch Body temperature 2020-09-30 [...] Systolic (mm Hg) 2019-01-28 01:16:00 Estrada rial [place] Diastolic (mm Hg) 2019-01-28 01:16:00 Mem orial [place] Heart Rate 2019-01-28 01:16:00 Memorial Yonis Respitory Rate 2019-01-28 01:16:00 Memori al [place] Systolic (mm Hg) 2019-01-27 20:42:00 Estrada rial [place] Diastolic (mm Hg) 2019-01-27 20:42:00 Mem orial Yonis Heart Rate 2019-01-27 20:42:00 Memorial [place] Respitory Rate 2019-01-27 20:42:00 Memori al [place] Temperature Oral (F) 2019-01-27 20:42:00 98.5 F [facility] [place] Systolic (mm Hg) 2019-01-27 17:00:00 Estrada rial Yonis Diastolic (mm Hg) 2019-01-27 17:00:00 Mem orial [place] Temperature Oral (F) 2019-01-27 17:00:00 98.5 F Memorial [place] Heart Rate 2019-01-27 17:00:00 [facility] [place] Respitory Rate 2019-01-27 [facility] [place] Height 2019-01-22 14:35:00 157.48 cm [facility] BMI Calculated 2019-01-22 14:35:00 [facility] [place] Weight 2019-01-22 14:35:00 [facility] [place] Weight 2019-01-22 [facility]:34:00 [facility] Procedure Date / Time Performing Clinician Source Performed URINALYSIS 2021-09-10 06:03:00 Neena Bradford [facility] URINE DRUG (IMMUNOASSAY) 2021-09-10 06:03:00 Neena Bradford [facility] SCREEN W/O REFLEX XR CHEST 1 VW 2021-09-10 04:57:30 Neena Bradford [facility] CREATINE KINASE 2021-09-10 04:39:00 Neena Bradford [facility] MAGNESIUM 2021-09-10 04:39:00 Neena Bradford [facility] TROPONIN I 2021-09-10 04:39:00 Neena Bradford [facility] COMP. METABOLIC PANEL 2021-09-10 04:39:00 Neena Bradford [facility] ([id number]) Medical [place] CBC WITH DIFF 2021-09-10 04:39:00 Neena Bradford [facility] PROTHROMBIN TIME / INR 2021-09-10 04:39:00 Neena Bradford [facility] ACTIVATED PARTIAL 2021-09-10 04:39:00 Neena Bradford [facility] THRFormerly [facility] N-TERMINAL PRO-BNP 2021-09-10 04:39:00 Neena Bradford [facility] COVID-19 (ID NOW RAPID 2021-09-10 04:39:00 Neena Bradford [facility] TESTING) Medical Branch TROPONIN I 2021-09-09 21:49:00 [facility] COMP. METABOLIC PANEL 2021-09-09 21:49:00 [place] [facility] ([id number]) Medical Branch LITHIUM 2021-09-09 21:49:00 [facility] CBC WITH DIFF 2021-09-09 21:49:00 [facility] CONSENT/REFUSAL FOR 2021-09-09 19:51:22 Doctor Unassigned, No Un [facility] DIAGNOSIS AND TREATMENT Name Medical Branch URINALYSIS 2020-09-30 13:27:00 [place], [facility] [place] ADC,CLC OR LCC ONLY - 2020-09-30 13:27:00 JacksonChuy aleman [facility] INFLUENZA A & B DIRECT Medical B ranch ANTIGEN COVID-19 (ID NOW RAPID 2020-09-30 13:27:00 JacksonChuy [facility] TESTING) Medical Branch Encounters Start End Encounter Admission Attending Care Care Encounter Source Date/Time Date/Time Type Type Clinicians Facility Department ID 2021-09-08 Outpatient Humaira-Mbayo VFP VFP [id number] 02:24:16 _A_ [id number] Family Practic e 2021-09-07 Outpatient Humaira-Mbayo VFP VFP [id number] [place] 22:13:27 _A_AH [id number] Family Practic e 2021-09-07 Outpatient Humaira-Mbayo VFP VFP [id number] [place] 13:23:42 _A_ [id number] Family Practic e 2021-09-06 Outpatient Humaira-Mbayo VFP VFP [id number] [facility] 04:23:58 _A_AH [id number] Family Practic e 2021-09-05 Outpatient Bernadine [facility] [id number] [facility] 19:22:48 _A_AH [id number] Family Practic e 2019-01-22 Inpatient E [facility] 7500 [facility] W 04:39:00 2021-09-09 2021-09-10 Emergency Sanchez [facility] [id number] Univers 22:20:00 03:02:00 Neena JIMENEZ [id number] i ty of [place] 4.2.7.2.686 [facility] [id number] [address] 2021-09-09 2021-09-10 Emergency X SANCHEZ [facility] ERT [id number] Univers 22:20:00 03:02:00 NEENA tubbs [facility] 2021-09-09 2021-09-10 Emergency X SANCHEZ [facility] ERT [id number] Univers 22:20:00 03:02:00 NEENA tubbs [facility] 2021-09-09 2021-09-09 Emergency Julia [facility] [id number] Univers 14:07:00 17:35:00 Luanne JIMENEZ 350.1.13.10 i ty of [place] 4.2.7.2.686 [facility] [id number] [address] 2021-09-09 2021-09-09 Orders Doctor BELKYS [id number] Univers 00:00:00 00:00:00 Only Unassigned, LANA 350.1.13.10 ity of [place] [facility] 4.2.7.2.686 Joe [id number] [facility] 009 Branch 2020-09-30 2020-09-30 Chuy Jackson NCSARAI [id number] Univers 07:22:00 08:18:00 Chuy Jimenez 350.1.13.10 i ty of [place] 4.2.7.2.686 [facility] [id number] [facility] 084 Branch 2020-09-30 2020-09-30 Chuy Jackson NCSARAI [id number] 07:22:00 08:18:00 Chuy Jimenez 350.1.13.10 [place] 4.2.7.2.686 [place] [id number] 2020-09-30 2020-09-30 Emergency X SINGER [facility] ERT [id number] Univers 07:22:00 07:22:00 CHUY tubbs [facility] 2020-03-04 2020-03-14 Inpatient 3 Ronni Eldridge [facility] PSY [id number] 15:38:00 15:25:00 Chente [facility] 2019-01-22 2019-01-28 Inpatient [facility] [id number] Memoria 04:33:00 04:40:[address] [facility] 2018-02-21 2018-02-20 Inpatient [facility] [id number] [address] 14:48:00 13:18:00 [facility] Results Test Description Test Time Test Comments Results Result Comments Source TROPONIN I 2021-09-10 05:26:53 Test Item Value Reference Range Interpretation Comme nts TROPONIN I (test code = 0.003 ng/mL See_Comment [Au tomated message] The 8413523122) system which ge nerated this result tra [...] biotin. Lab Interpretation Normal (test code = 12609-2) [id number] 05:24:16 Test Item Value Reference Range Interpretation Comments NT-proBNP (test code 35 pg/mL See_Comment [Autom ated = 2208860494) message] The system which generated this result transmitted reference range : <=125. The reference range was not used to interpret this result as normal/abnormal . PERRY (test code = PERRY) Biotin has been reported to cause a negative bias, interpret results relative to patient's use of biotin. Lab Interpretation Normal (test code = 28732-4) [facility]2021-[facility]-17 05:16:51 Test Item Value Reference Range Interpretation Comments MAGNESIUM (test code = 2348846508) 1.8 mg/dL 1.7-2.4 Lab Interpretation (test code = Normal 04373-7) [facility]. METABOLIC PANEL ([id number])2021-09-10 05:16:31 Test Item Value Reference Range Interpretation Comments NA (test code = 139 mmol/L 135-145 9558932237) K (test code = 4.0 mmol/L 3.5-5.0 1076952246) CL (test code = 108 mmol/L 98-108 4949156277) CO2 TOTAL (test code 25 mmol/L 23-31 = 4509811752) AGAP (test code = 2-16 5129055932) BUN (test code = 14 mg/dL 7-23 4723173831) GLUCOSE (test code = 88 mg/dL 70-110 0517919257) CREATININE (test code 0.89 mg/dL 0.50-1.04 = 1565850031) TOTAL BILI (test code 0.5 mg/dL 0.1-1.1 = 2172925380) CALCIUM (test code = 10.3 mg/dL 8.6-10.6 5672721540) T PROTEIN (test code 6.9 g/dL 6.3-8.2 = 0476633624) ALBUMIN (test code = 4.3 g/dL 3.5-5.0 8837614965) ALK PHOS (test code = 72 U/L 34-122 4827430022) ALTv (test code = 17 U/L 5-35 1742-6) AST(SGOT) (test code 29 U/L 13-40 = 0601224933) eGFR (test code = mL/min/1.73m2 9955493128) PERRY (test code = PERRY) Association of [...] or urine or abnormalities in imaging tests). [facility] [id number] 05:16:16 Test Item Value Reference Range Interpretation Comments CK (test code = 2962614321) 267 U/L 33-194 H Lab Interpretation (test code = Abnormal 83539-0) [facility] THRMPLAS [id number] 05:05:32 Test Item Value Reference Range Interpretation Comments APTT Patient (test See_Comment [Automat ed code = 3173-2) message] The system which generated this result transmitted reference range : 23 - 38 Seconds . The reference range was not used to interpr et this result as normal/abnormal . PERRY (test code = PERRY) The [facility] patient population mean normal value for aPTT is 30 seconds. Lab Interpretation Normal (test code = 14231-1) [facility] / [id number] 05:03:30 Test Item Value Reference Range Interpretation [...] tions. Lab Interpretation (test Normal code = 90738-0) [facility] WITH [id number] 04:57:13 Test Item Value Reference Range Interpretation Comments WBC (test code = See_Comment [Automated 7690-2) message] The sy stem which generated this [...] RDW-SD (test code = 41.2 fL 39.0-49.9 65629-0) RDW-CV (test code = 13.0 % 12.0-15.5 788-0) PLT (test code = See_Comment H [Automated 777-3) message] The sy stem which generated this result transmitted reference range : 166 - 358 10*3/ ?L. The reference r katie was not used to interpret this result as normal/abnormal . MPV (test code = 9.6 fL 9.5-12.9 53892-4) NRBC/100 WBC (test See_Comment [Automat ed code = 7367789808) message] The system which generated this result transmitted reference range : 0.0 - 10.0 /100 WBCs. The refer ence range was not u sed to interpret th is result as normal/abnormal . NRBC x10^3 (test code <0.01 See_Comment [Auto mated = 7889514020) message] The s ystem which generated this result transmitted reference range : 10*3/?L. The reference range was not used to interpret this result as normal/abnormal . GRAN MAT (NEUT) % 61.9 % (test code = 770-8) IMM GRAN % (test code 0.30 % = 7506155176) LYMPH % (test code = 26.0 % 736-9) MONO % (test code = 9.5 % 5905-5) EOS % (test code = 1.6 % 713-8) BASO % (test code = 0.7 % 706-2) GRAN MAT x10^3(ANC) 5.91 10*3/uL 1.88-7.09 (test code = 4966988910) IMM GRAN x10^3 (test 0.03 10*3/uL 0.00-0.06 code = 9312598513) LYMPH x10^3 (test code 2.48 10*3/uL 1.32-3.29 = 731-0) MONO x10^3 (test code 0.91 10*3/uL 0.33-0.92 = 742-7) EOS x10^3 (test code = 0.15 10*3/uL 0.03-0.39 711-2) BASO x10^3 (test code 0.07 10*3/uL 0.01-0.07 = 704-7) Lab Interpretation Abnormal (test code = 26119-2) [facility] [id number] 22:24:55 Test Item Value Reference Interpretation Comments Range TROPONIN I (test 0.002 ng/mL See_Comment [Automated code = 7580229526) message] The system which generated this result [...] biotin. Lab Interpretation Normal (test code = 65021-3) [facility]2021-[facility]-16 22:24:34 Test Item Value Reference Range Interpretation Comments [place] (test code = <0.2 0.6-1.2 L 9585212965) PERRY (test code = PERRY) Toxic Range: ? Greater than 1.2 mmol/L Lab Interpretation (test Abnormal code = 40689-8) [facility] METABOLIC PANEL ([id number])2021-09-09 22:13:54 Test Item Value Reference Range Interpretation Comments NA (test code = 139 mmol/L 135-145 9319185369) K (test code = 4.0 mmol/L 3.5-5.0 4199019247) CL (test code = 105 mmol/L 98-108 8817713647) CO2 TOTAL (test code 26 mmol/L 23-31 = 5467627469) AGAP (test code = 2-16 4875974975) BUN (test code = 11 mg/dL 7-23 8919797896) GLUCOSE (test code = 109 mg/dL 70-110 4222079064) CREATININE (test code 0.71 mg/dL 0.50-1.04 = 7857941084) TOTAL BILI (test code 0.6 mg/dL 0.1-1.1 = 3086162254) CALCIUM (test code = 10.4 mg/dL 8.6-10.6 0128673362) T PROTEIN (test code 7.6 g/dL 6.3-8.2 = 3751428768) ALBUMIN (test code = 4.7 g/dL 3.5-5.0 3218750349) ALK PHOS (test code = 78 U/L 34-122 3133849014) ALTv (test code = 19 U/L 5-35 2-6) AST(SGOT) (test code 28 U/L 13-40 = 1029921618) eGFR (test code = mL/min/1.73m2 3464795589) PERRY (test code = PERRY) Association of [...] or urine or abnormalities in imaging tests). [facility] WITH [id number] 22:03:32 Test Item Value Reference Range Interpretation Comments WBC (test code = See_Comment [Automated 2788-2) message] The sy stem which generated this [...] RDW-SD (test code = 40.2 fL 39.0-49.9 45881-1) RDW-CV (test code = 12.9 % 12.0-15.5 788-0) PLT (test code = See_Comment H [Automated 777-3) message] The sy stem which generated this result transmitted reference range : 166 - 358 10*3/ ?L. The reference r katie was not used to interpret this result as normal/abnormal . MPV (test code = 9.4 fL 9.5-12.9 L 29829-6) NRBC/100 WBC (test See_Comment [Automat ed code = 6953757983) message] The system which generated this result transmitted reference range : 0.0 - 10.0 /100 WBCs. The refer ence range was not u sed to interpret th is result as normal/abnormal . NRBC x10^3 (test code <0.01 See_Comment [Auto mated = 6584017725) message] The s ystem which generated this result transmitted reference range : 10*3/?L. The reference range was not used to interpret this result as normal/abnormal . GRAN MAT (NEUT) % 67.1 % (test code = 770-8) IMM GRAN % (test code 1.00 % = 0679936143) LYMPH % (test code = 21.4 % 736-9) MONO % (test code = 7.9 % 5905-5) EOS % (test code = 1.8 % 713-8) BASO % (test code = 0.8 % 706-2) GRAN MAT x10^3(ANC) 7.35 10*3/uL 1.88-7.09 H (test code = 7815026377) IMM GRAN x10^3 (test 0.11 10*3/uL 0.00-0.06 H code = 3030287664) LYMPH x10^3 (test code 2.34 10*3/uL 1.32-3.29 = 731-0) MONO x10^3 (test code 0.86 10*3/uL 0.33-0.92 = 742-7) EOS x10^3 (test code = 0.20 10*3/uL 0.03-0.39 711-2) BASO x10^3 (test code 0.09 10*3/uL 0.01-0.07 H = 704-7) Lab Interpretation Abnormal (test code = 90925-7) [facility] IN[facility] A & B DIRECT NIDIAKN1329-63-07 14:04:00 Test Item Value Reference Range Interpretation Comments Influenza A (test code = 31368-4) Negative Negative Influenza B (test code = 67352-3) Negative Negative Lab Interpretation (test code = Normal 40592-8) [facility] (ID NOW RAPID TESTING)2020-09-30 14:03:00 Test Item Value Reference Range Interpretation Comments SARS-CoV-2 Rapid ID NOW Not Detected Not Detected (test code = 04817-8) PERRY (test code = PERRY) ID NOW COVID-19 Assay is an isothermal nucleic acid amplification test intended for the qualitative detection of nucleic acid from SARS-CoV-2 viral RNA in nasopharyngeal (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 It is used under Emergency Use [...] indicated. Lab Interpretation Normal (test code = 57098-0) [facility] 13:55:00 Test Item Value Reference Range Interpretation Comments APPEARANCE (test code = Hazy Clear A 9056166956) COLOR (test code = Yellow Yellow 7618443904) PH (test code = 4.8-8.0 6078494410) SP GRAVITY (test code = 1.003-1.030 0840029894) GLU U QUAL (test code = Normal Normal 4123091790) BLOOD (test code = Negative Negative 4553078326) KETONES (test code = 5 mg/dL Negative A 5500695094) PROTEIN (test code = Negative Negative 2887-8) UROBILIN (test code = 2.0 mg/dL Normal A 5380257075) BILIRUBIN (test code = Negative Negative 9895464593) NITRITE (test code = Negative Negative 5955083842) LEUK ROZINA (test code = 25/uL Negative A 0393779979) RBC/HPF (test code = See_Comment [Autom ated message] 5230911257) The system Zapproved generated this result transmit ngozi reference range : 0 - 3 HPF. The refe rence range was not u sed to interpret th is result as normal/abnormal . WBC/HPF (test code = See_Comment [Autom ated message] 7790020425) The system Zapproved generated this result transmit ngozi reference range : 0 - 5 HPF. The refe rence range was not u sed to interpret th is result as normal/abnormal . BACTERIA (test code = Few Negative A 8910289726) MUCOUS (test code = Slight Negative LPF A 9710476863) SQ EPITH (test code = HPF 7388617998) Lab Interpretation (test Abnormal code = 33013-3) [facility] Eeurleuffzl1085-21-88 16:42:24 Test Item Value Reference Range Interpretation [...] = 10-24-2020 N Expiration Dt) Thyroid Stimulating Hggxhdr8511-44-33 08:35:16 Test Item Value Reference Range Interpretation Comments TSH (test code = TSH) 1.170 mIU/mL 0.270-4.200 Lipid Grqpe3375-88-47 08:21:19 Test Item Value Reference Range Interpretation Comments Cholesterol Total 254 mg/dL 0-200 H RISK OF HE ART (test code = DISEASEPublishe d by Cholesterol Total) [place] [employer] Cathie lyte Optimal Borderl ine [...] calculation is LDL/HDL Ratio=L DL Calc/HDL Chol UWZRJNHHWYMK1873-04-33 08:24:008.6[facility] IubviszWUOSYBJLDRZH1576-91-66 08:24:72982Btvixrbi PqqkworLGLXZGKSFLIQ2999-51-29 08:24:0027[facility] LMOVLMOLQEFG6381-56-29 08:24:64583Hkotlxue JuxwzmoSZFJPEDNBVQC3143-57-73 08:24:003.6[facility] TjxcoslHEGEVOXHJZHU4871-85-48 08:24:000.70[facility] MZZRFZCZGCMK0786-13-96 08:24:008.4[facility] LtuutknCXHBLQXDBDWE3633-42-66 08:24:20858Itjwhbks NqaziogJFKXTXWDEJHV5701-39-76 08:24:0086[facility] DLSRVGJVCPKN6426-68-86 08:24:006[facility] QykkktwEOBMXKNOIJ7214-77-09 08:24:00 11.6[facility] JyxmsclRVFRGIWJYI8334-88-63 08:24:003.78[facility]annHEMATOLOGY 2019-01-26 08:24:0013.3[facility] BjgiubpASSYNKNBEV4693-77-52 08:24:0034.0[facility] [place]ik[place]aIRFQFETFKR4539-58-66 08:24:006.3[facility] KtkwlboNCSLAPFHMS3825-46-76 08:24:00 Test Item Value Reference Range Interpretation Comments MCH (test code = MCH) 30.7 pg 27.0-31.0 [facility] ZdqswhkQVAWKCVHXS1416-47-63 08:24:0090.3[facility] HermannHEMATOLOGY 2019-01-26 08:24:0034.2[facility] RjkutqkSXBORMBJVI1290-74-53 08:24:47689Oirglvtx AufhfwjGZXGOAINGB2057-11-67 08:24:007.5[facility] NajweqwIVCHKTTONPKF0094-84-87 08:24:008.6[facility] FppekkrDNUHLBSNNGVF4631-99-75 08:24:40146Edmbkunw [facility] XQCZERYOGDXB0775-91-74 08:24:0027[facility] JzuveecXPVIGADNHORJ7940-36-19 08:24:00 139[facility] HibwkhgTIDYDZNNRAJR8319-21-14 08:24:003.6[facility] SCWQKYZWJUJH8754-48-54 08:24:000.70[facility] PyyjjsoDCEKZUBNPPEJ5228-62-06 08:24:008.4[facility] WgzdtfvRDBXNPQVABNE0701-98-27 08:24:20650Fplucmtr Y[facility] AODBNNJBNYTM5183-79-52 08:24:0086[facility] WmpohvyZDYKIDVZPJPP9371-57-76 08:24:00 6[facility] PmwruuoPZNSORWTOP4495-12-66 08:24:0011.6[facility]annHEMATOLOGY 2019-01-26 08:24:003.78[facility] AtpzatlSPURREZDKT8851-04-39 08:24:0013.3[facility] IgwkvvxJLLVAWKBXJ1847-16-45 08:24:0034.0[facility] RgvtglwPYKZGRRDSP3811-49-54 08:24:006.3[facility] CaxrhxqQHKUZUGOCT0305-06-19 08:24:00 Test Item Value Reference Range Interpretation Comments MCH (test code = MCH) 30.7 pg 27.0-31.0 [facility] NwduqwnGIOLUFQWIT8880-62-37 08:24:0090.3[facility]annHEMATOLOGY 2019-01-26 08:24:0034.2[facility] LflahqyUGKVREFJHE9685-27-36 08:24:12876Pvusgmxa UcmdoefYFZYCAGDSN6871-88-90 08:24:007.5[facility] HermannCHEM NQVQW2874-27-15 09:14:96177Jwsyjeyd HermannCHEM IEEXO3633-83-76 09:14:008.5[facility]annCHEM XGFYO9069-49-08 09:14:0013.3[facility]annCHEM PTTZO1217-95-04 09:14:0024 [facility]annCHEM YEHSU0126-12-49 09:14:48707Xwniwcfp HermannCHEM PANEL 2019-01-25 09:14:0081[facility]annCHEM VUJVL0262-43-56 09:14:002[facility]annCHEM WAOOX1139-14-33 09:14:003.3[facility]annCHEM EPXVP3060-26-29 09:14:000.60[facility]annCHEM BZRXR1174-95-99 09:14:63058Edgvflfm HermannCHEM HWJQS0901-33-38 09:14:30112Vdfzwhxc HermannCHEM JLFHY8438-32-77 09:14:008.5 [facility]annCHE[facility] KZVBU6720-75-26 09:14:0013.3[facility]annCHEM PANEL 2019-01-25 09:14:0024[facility]annCHEM JKBSB1060-70-10 09:14:88631Uqsfilon HermannCHEM QLNFW0004-36-73 09:14:0081[facility]annCHEM OUMZE4131-30-31 09:14:002[facility]annCHEM LLUSQ6000-45-77 09:14:003.3[facility]annCHEM VPNSK5666-47-21 09:14:000.60[facility]annCHEM SXTHV4389-15-69 09:14:33348 [facility]annMOLECULAR ZRHJTFTPVB6894-89-77 16:22:00Negative (01/23/19 11:22 AM)[facility]annMOLECULAR RPLQTWKUED4642-59-75 16:22:00Negative (01/23/19 11:22 AM)[facility]annCHEM FIXXS6113-99-01 15:42:002.76[facility]annCHEM PANEL 2019-01-23 15:42:002.76[facility]annCHEM MZYXZ1751-80-86 12:32:000.9[facility]annCHEM ESGYY9035-24-25 12:32:000.9[facility]annCHEM KTJRT9495-66-67 10:50:002.0[facility]annCHEM HGEKX2735-71-73 10:50:58807Tjneyoxs HermannCHEM VOASS1563-36-70 10:50:0023[facility]annCHEM IKAAC8635-71-83 10:50:46408 [facility]annCHEM QULBZ8460-37-69 10:50:003.1[facility]annCHEM PANEL 2019-01-23 10:50:72408Zpxpaooo HermannCHEM DUKTP4372-85-44 10:50:005[facility]annCHEM LAEAL0157-54-04 10:50:000.50[facility]annCHEM BJWOM5199-12-98 10:50:007.8[facility]annCHEM BMFTK7603-35-06 10:50:0083[facility]annCHEM DHIIO9605-16-71 10:50:0010.1[facility] TkcxbotBUOVSZMYZF1636-32-91 10:50:000.2 [facility] NeonxunPAOQJWUJAR6747-17-06 10:50:000.8[facility] HermannHEMATOLOGY 2019-01-23 10:50:005.5[facility] XrrupkrAYLPEXKZDG3505-99-80 10:50:002.2[facility] YflgtnvSIAYCOWAYC9764-21-45 10:50:000.1[facility] SwcckzdFARIDUKTRJ3072-40-23 10:50:0063.6[facility] HptwekcJWGLDIRXGX0008-21-06 10:50:008.9[facility] YVHRNPUDDR5988-18-96 10:50:002.3[facility] GudnniyOOVGDEQSGB7259-92-79 10:50:00 Normal (01/23/19 5:50 AM)[facility] MevvbffNVPABYKAGY7663-38-85 10:50:00Normal (01/23/19 5:50 AM)[facility] VxqtqxdLYMGLSEXQG6206-99-13 10:50:0025.1[facility] YnjdfstODPXPNQZEJ2335-03-09 10:50:0013.1[facility] ZhjcvesMZWESXLSON2054-11-88 10:50:79172Sdpclsrz ThihsajUBQWVIDYGL7067-48-94 10:50:007.7[facility] ZOCATDSRDP3772-77-37 10:50:008.6[facility] NmhaupyOVDWGXKPNE4044-43-54 10:50:00 10.0[facility] WhvngvjQNLBSJKDKU8384-14-65 10:50:0034.[facility] HermannHEMATOLOGY 2019-01-23 10:50:0028.7[facility] FfidsgbONFXWNXEKX7204-83-82 10:50:0087.8[facility] SjguwuvBHDLYVJJPM9847-30-96 10:50:00 Test Item Value Reference Range Interpretation Comments MCH (test code = MCH) 30.4 pg 27.0-31.0 [facility] GdtlyeiEXLCVBNBDH8784-52-26 10:50:003.27[facility] HermannHEMATOLOGY 2019-01-23 10:50:70515Xaezpjcj DceylkzLVNPLTLNVQ5995-94-54 10:50:007.7[facility] IqzzaokPGNICWHZTY4435-36-05 10:50:008.[facility] GdsuyvwJWHCVDEITC5983-47-68 10:50:0010.0[facility] SpelwdqFJLICBJLFK0463-67-11 10:50:0034.[facility] VZOGFIGXTL9827-34-43 10:50:0028.7[facility] NkjzdafZMHOQPBXCO7196-57-87 10:50:00 87.8[facility] VnlhevwKJLYHNMDVM4762-39-36 10:50:00 Test Item Value Reference Range Interpretation Comments MCH (test code = MCH) 30.4 pg 27.0-31.0 [facility] DzfywgdITVHDRMTRP6392-56-93 10:50:003.27[facility] HermannCHEM PANEL 2019-01-23 10:50:002.0[facility]annCHEM KUERU6108-24-58 10:50:26682Yrrrswxz HermannCHEM FKFXJ1312-22-83 10:50:0023[facility]annCHEM QXMWN9592-72-65 10:50:95936Kotdtdzp [facility]annCHEM UPEEW6265-97-55 10:50:003.1[facility]annCHEM QGACI9660-51-10 10:50:30345Bocxnjyf HermannCHEM WSKTO2110-31-46 10:50:005 [facility]annCHE[facility] NFPHC8327-52-32 10:50:000.50[facility]annCHEM PANEL 2019-01-23 10:50:007.8[facility]annCHEM EXSZU6756-51-91 10:50:0083[facility]annCHEM JUMFN5543-31-38 10:50:0010.1[facility] TypxmafAUFWJJCIND2350-55-78 10:50:000.2[facility] AyqrllcIUYZLEVZAM9205-83-62 10:50:000.8[facility] ZXSUOAHXUE7588-94-77 10:50:005.5[facility] GukdkyjBLRSBZNJMM2567-33-01 10:50:002.2 [facility] StqlmzpLSEDVOVVMU4637-52-97 10:50:000.1[facility]annHEMATOLOGY 2019-01-23 10:50:0063.6[facility] QwofrijBRXYYCOWGH9496-03-83 10:50:008.9[facility] DvkiqddPOYCHRGXUH1187-92-03 10:50:002.3[facility] KchfjemEBOALYQFSL6962-56-40 10:50:00Normal (01/23/19 5:50 AM)[facility] ZygjnjfHWSPFDGLZP5871-35-73 10:50:00 Normal (01/23/19 5:50 AM)[facility] DvgmcpoWPZMTCBQCO3807-57-89 10:50:0025.1[facility] BwinsgjEQUBNIEWSK0686-03-47 10:50:0013.1[facility] HermannCHEM UTWGX3518-68-84 11:32:002.4[facility]annCHEM CRJTA4583-78-83 11:32:002.4[facility]annCHEM UGDOE8371-02-52 09:04:003.0[facility]annCHEM JEMXE2052-18-15 09:04:003.0 [facility]UR[facility] AND HHBQJ5382-82-50 07:14:00 Test Item Value Reference Range Interpretation Comments UA Spec Grav (test code = UA Spec 1.014 1 Grav) [facility] IDQAG3908-27-49 07:14:00 Test Item Value Reference Range Interpretation Comments UA pH (test code = UA pH) 6.0 1 5.0-8.0 [facility] WXXVS7034-08-12 07:14:00Negative (01/22/19 2:14 AM) [facility] ZDWVE3430-81-39 07:14:00Negative *NA*(01/22/19 2:14 AM) [facility] KJZWI5880-71-36 07:14:00Negative *NA*(01/22/19 2:14 AM) [facility] AXOCG9117-54-32 07:14:00Negative *NA*(01/22/19 2:14 AM) [facility] MMPDP5900-78-22 07:14:00Negative (01/22/19 2:14 AM) [facility] PUNZL6568-74-72 07:14:00Negative (01/22/19 2:14 AM) [facility] XWNOU9149-94-67 07:14:00Negative (01/22/19 2:14 AM) [facility] TMPVN6621-37-47 07:14:00<1[facility] TLLJS7693-93-53 07:14:0025[facility] TIRDP5546-67-28 07:14:002 [facility] HJBCN2348-74-37 07:14:00Light Yellow *NA*(01/22/19 2:14 AM)[facility] VEUPA3238-21-90 07:14:00Clear (01/22/19 2:14 AM) [facility] QQXDD6665-34-10 07:14:00 Test Item Value Reference Range Interpretation Comments UA Spec Grav (test code = UA Spec 1.014 1 Grav) [facility] YOUWZ7902-54-19 07:14:00 Test Item Value Reference Range Interpretation Comments UA pH (test code = UA pH) 6.0 1 5.0-8.0 [facility] JWJWQ4139-82-37 07:14:00Negative (01/22/19 2:14 AM) [facility] QWTRY3464-90-78 07:14:00Negative *NA*(01/22/19 2:14 AM) [facility] YPDHO1672-86-60 07:14:00Negative *NA*(01/22/19 2:14 AM) [facility] WPAIF3348-68-59 07:14:00Negative *NA*(01/22/19 2:14 AM) [facility] QMKVL4164-67-56 07:14:00Negative (01/22/19 2:14 AM) [facility] SUOOX3489-14-84 07:14:00Negative (01/22/19 2:14 AM) [facility] WMEXR2699-99-62 07:14:00Negative (01/22/19 2:14 AM) [facility] RZYCT7284-91-14 07:14:00<1[facility] WAKTY0308-89-82 07:14:0025[facility] QPEDF1128-31-82 07:14:002 [facility] AXJIW8243-08-70 07:14:00Light Yellow *NA*(01/22/19 2:14 AM)[facility] UKBXB0866-68-18 07:14:00Clear (01/22/19 2:14 AM) [facility] PmpjzraBDKMV8065-96-62 05:16:000.90[facility] FbckdxgTHUUB9141-61-24 05:16:000.90[facility] TygdzkcVFSURASWVD2678-30-08 05:01:009.9[facility] JDLZRBHZEN7784-38-13 05:01:0032.8[facility] UxrslbuYFWXGBRCDG3559-15-41 05:01:00 13.6[facility] LgyfivxKTERNTAYAX7094-19-22 05:01:58899Shzhihwx HermannHEMATOLOGY 2019-01-22 05:01:007.3[facility] UorgzjmRPAFXWVKQD3603-01-45 05:01:0014.0[facility] XoqsevaAKTNMRJKKN3253-61-78 05:01:004.85[facility] SpkknbhSYKJOHMPKH5970-92-42 05:01:0042.7[facility] VfsufktIRNWXFDABC3731-46-22 05:01:00 Test Item Value Reference Range Interpretation Comments MCH (test code = MCH) 29.0 pg 27.0-31.0 [facility] XtdyldkCUAZEOSKOA8443-79-92 05:01:0088.2[facility]annHEMATOLOGY 2019-01-22 05:01:00 Test Item Value Reference Range Interpretation Comments INR (test code = INR) 0.96 1 0.85-1.17 [facility] EtmdzvlILRQNJSCNS7958-49-20 05:01:00 Test Item Value Reference Range Interpretation Comments PT (test code = PT) 12.6 s 12.0-14.7 [facility] MhbbombJFGQZUOJSB5932-12-32 05:01:00 Test Item Value Reference Range Interpretation Comments PTT (test code = PTT) 25.9 s 22.9-35.8 [facility] ZJMOWOZ8292-19-90 05:01:00Negative (01/22/19 12:01 AM) [facility] WDGTXAA7166-17-57 05:01:00<0.02[facility] CARDIAC VKDYFKY6461-46-96 05:01:0049[facility] HermannCHEM XKAAT2682-39-92 05:01:000.6[facility]annCHEM EJURY7080-91-62 05:01:17712Lsbafldu HermannCHEM HZUIE9750-00-63 05:01:004.0[facility]annCHEM JATGG1725-34-45 05:01:0017 [facility]annCHE[facility] EXMZN5004-81-82 05:01:0025[facility]annCHEM PANEL 2019-01-22 05:01:008.1[facility]annCHEM EALGC6508-73-63 05:01:00 Test Item Value Reference Range Interpretation Comments B/C Ratio (test code = B/C Ratio) 20 1 6-25 [facility]annCHE[facility] MYDCX5691-62-14 05:01:00 Test Item Value Reference Range Interpretation Comments A/G Ratio (test code = A/G Ratio) 1.0 1 0.7-1.6 [facility]annCHE[facility] KFIHQ3916-08-02 05:01:004.1[facility] HermannCHEM PANEL 2019-01-22 05:01:006.90[facility] OgfosiiOSNUGEELHLJLD3279-06-46 05:01:00Negative *NA*(01/22/19 12:01 AM)[facility] ImzjvcpTDYKWPVJVQ5079-61-53 05:01:000.1[facility] UkwdijdUANCRZXEJZ2516-19-45 05:01:000.7[facility] GlxkvmvOVNYLIZKBW4927-60-48 05:01:000.0[facility] RplvannXHPWIQWNLG8883-73-56 05:01:000.0[facility] AIWEIUKBQW1760-73-20 05:01:000.9[facility] OxlbztvMHTBIJIRRF4350-59-95 05:01:008.6 [facility] GiltvqkNKVXOKMSAE5600-14-76 05:01:000.6[facility]annHEMATOLOGY 2019-01-22 05:01:0086.5[facility] ZcunbycFVBLTCPVEU0278-85-93 05:01:005.7[facility] SpcpffqVOGRVEJHBO4814-87-01 05:01:006.9[facility] YjvqukrTFPUIRRHBX4720-55-32 05:01:009.9[facility] DxyuxinNJGQASQXVL1323-97-50 05:01:0032.8[facility] VHCFKJMTVO8547-43-88 05:01:0013.6[facility] LsicazvMTUYJCOJZI8095-38-00 05:01:00 443[facility] HdbfkbxIWMGVGFRFE5219-38-14 05:01:007.3[facility] HermannHEMATOLOGY 2019-01-22 05:01:0014.0[facility] OllafmiAZPGQWKOWK9021-54-74 05:01:004.85[facility] KbriwhjEBURNKRYIQ5078-22-15 05:01:0042.7[facility] ZyqikqrWUVAZHCJTG6714-46-55 05:01:00 Test Item Value Reference Range Interpretation Comments MCH (test code = MCH) 29.0 pg 27.0-31.0 [facility] ChbluysZCWAWRPOXK0797-24-43 05:01:0088.2[facility] HermannHEMATOLOGY 2019-01-22 05:01:00 Test Item Value Reference Range Interpretation Comments INR (test code = INR) 0.96 1 0.85-1.17 [facility] CenterWblgcqjPBYKNLXOHW2546-69-22 05:01:00 Test Item Value Reference Range Interpretation Comments PT (test code = PT) 12.6 s 12.0-14.7 [facility] FmzwlmeBZPFLDHEQO1965-76-12 05:01:00 Test Item Value Reference Range Interpretation Comments PTT (test code = PTT) 25.9 s 22.9-35.8 [facility] XIISTJO1471-68-38 05:01:00Negative (01/22/19 12:01 AM) [facility] UMMFVRE5807-25-82 05:01:00<0.02[facility] CARDIAC AFSPBVR1636-54-52 05:01:0049[facility]annCHEM DCIQV0398-62-11 05:01:000.6[facility]annCHEM KMLMT8318-42-38 05:01:16639Yyaixymb HermannCHEM CIBCP3174-57-77 05:01:004.0[facility]annCHEM OLVWR4634-26-15 05:01:0017 [facility]annCHEM PMLRM4594-58-69 05:01:0025[facility]annCHEM PANEL 2019-01-22 05:01:008.1[facility]annCHEM BQUWD2266-93-99 05:01:00 Test Item Value Reference Range Interpretation Comments B/C Ratio (test code = B/C Ratio) 20 1 6-25 [facility]annCHEM SXHBR2681-91-47 05:01:00 Test Item Value Reference Range Interpretation Comments A/G Ratio (test code = A/G Ratio) 1.0 1 0.7-1.6 [facility]annCHEM PBBVN2029-19-92 05:01:004.1[facility]annCHEM PANEL 2019-01-22 05:01:006.90[facility] VpptdmkOSALYSARBIFHH0079-36-01 05:01:00Negative *NA*(01/22/19 12:01 AM)[facility] CgoavpjJKOQEZURAB0211-85-30 05:01:000.1[facility] PijnsceQGAZUBIEEO7097-89-62 05:01:000.7[facility] IgkvlscCSZUJVIESD0036-23-44 05:01:000.0[facility] YfjhkqiKHSFMMYYBH0735-52-91 05:01:000.0[facility] BCEXLXGHJR1792-23-83 05:01:000.9[facility] UdekolcYXJORJLKRT4975-28-23 05:01:008.6 [facility] WoyjjkcYONNONBIHX4721-41-82 05:01:000.6[facility]annHEMATOLOGY 2019-01-22 05:01:0086.5[facility] LsbmlfnXJDDURXVXV4606-24-50 05:01:005.7[facility] NqqftnxMAAWZWFEVM3540-47-58 05:01:006.9[facility] BdgpicmVNG8A4378-05-36 14:36:00 Test Item Value Reference Range Interpretation [...] 0.00-0.01 N code = ETOHU) Comprehensive Metabolic Lksse4508-58-39 14:36:00 Test Item Value Reference Range Interpretation [...] the [employer],http ://nkd ep.nih.gov Urinalysis Cpmlabar3927-73-64 14:32:00 Test Item Value Reference Range Interpretation Comments Color (test code = COLOR) Yellow Yellow,Straw,Pl N yellow Clarity (test code = Clear Clear N CLAR) Specific [place] (test 1.024 1.001-1.035 N code = SPGR) [...] code = Few /HPF BACT) CBC with Rtwyqwkxayom2687-46-95 14:21:00 Test Item Value Reference Range Interpretation [...] code = ALYMPH) 3.0 K/cumm 0.5-4.6 N [place] Abs (test code = AMONO) 0.5 K/cumm 0.0-1.2 N Eos Abs (test code = AEOS) 0.19 K/cumm 0.00-0.74 N Baso Abs (test code = ABASO) 0.1 K/cumm 0.00-0.21 N
--- NOTE | 2021-09-16 15:37 | EDPHYS ---
Physician Documentation [facility] Name: Tiffany Quinn Age: 51 yrs Sex: Female : 1970 Arrival Date: 09/16/2021 Time: 15:08 Bed 9 Private MD: ED Physician Demarcus Mancilla HPI: 09/16 15:36 This 51 yrs old Female presents to ER via Ambulatory with complaints of Anxiety. pm1 15:36 The patient presents to the emergency department with anxiety. Onset: The pm1 symptoms/episode began/occurred today. Past psychiatric history: Prior diagnosis: Anxiety, bipolar disorder. Associated signs and symptoms: The patient has no apparent associated signs or symptoms. Severity of symptoms: in the emergency department the symptoms are unchanged. The patient has experienced similar episodes in the past, multiple times. The patient has been recently seen at the [facility] Emergency Department, today, for similar complaints. Patient was seen in the ER for the same complaints on multiple occasions in the past 3 days. Patient with history of abusing methamphetamines with resulting anxiety. Patient was seen this morning at 1 AM and discharged for the same complaint. Historical: - Allergies: 15:17 Haldol; iw 15:17 Pepcid; iw 15:17 Toradol; iw - PMHx: 15:17 Anxiety; Bipolar disorder; iw - PSHx: 15:17 breast augmentation; Cholecystectomy; hernia repair; iw ROS: 15:36 Constitutional: Negative for fever, chills, and weight loss, Cardiovascular: Negative pm1 for chest pain, palpitations, and edema, Respiratory: Negative for shortness of breath, cough, wheezing, and pleuritic chest pain, Abdomen/GI: Negative for abdominal pain, nausea, vomiting, diarrhea, and constipation, MS/Extremity: Negative for injury and deformity, Skin: Negative for injury, rash, and discoloration, Neuro: Negative for headache, weakness, numbness, tingling, and seizure. 15:36 Psych: Positive for anxiety, drug dependence. 15:36 All other systems are negative. Exam: 15:36 Constitutional: This is a well developed, well nourished patient who is awake, alert, pm1 and in no acute distress. Head/Face: Normocephalic, atraumatic. 15:36 Respiratory: Lungs have equal breath sounds bilaterally, clear to auscultation and percussion. No rales, rhonchi or wheezes noted. No increased work of breathing, no retractions or nasal flaring. Skin: Warm, dry with normal turgor. Normal color with no rashes, no lesions, and no evidence of cellulitis. MS/ Extremity: Pulses equal, no cyanosis. Neurovascular intact. Full, normal range of motion. 15:36 Cardiovascular: Exam negative for acute changes, Rate: tachycardic, Rhythm: regular, Pulses: no pulse deficits are appreciated, Heart sounds: normal, normal S1and S2. 15:36 Abdomen/GI: Exam negative for acute changes, Inspection: abdomen appears normal, Palpation: abdomen is soft and non-tender, in all quadrants. 15:36 Neuro: Exam negative for acute changes, Orientation: is normal, Mentation: is normal, Motor: is normal, moves all fours. Vital Signs: 15:15 BP 146 / 90; Pulse 105; Resp 16; Temp 98.5; Pulse Ox 100% on R/A; iw MDM: 15:24 Patient medically screened. pm1 15:36 Data reviewed: vital signs. Data interpreted: Pulse oximetry: on room air is 100 %. pm1 Interpretation: normal. Counseling: I had a detailed discussion with the patient and/or guardian regarding: the historical points, exam findings, and any diagnostic results supporting the discharge/admit diagnosis, the need for outpatient follow up, a family practitioner, a psychiatrist, to return to the emergency department if symptoms worsen or persist or if there are any questions or concerns that arise at home, Cessation of drug abuse. Administered Medications: 15:51 Drug: hydrOXYzine 50 mg Route: PO; ld1 15:51 Follow up: Response: No adverse reaction ld1 Disposition: 09/17 08:13 Co-signature as Attending Physician, Demarcus Mancilla MD I agree with the assessment and kdr plan of care. Disposition Summary: 09/16/21 15:37 Discharge Ordered Location: Home pm1 Problem: new pm1 Symptoms: have improved pm1 Condition: Stable pm1 Diagnosis - Anxiety disorder, unspecified pm1 Followup: pm1 - With: Emergency Department - When: As needed - Reason: Worsening of condition Followup: pm1 - With: Private Physician - When: 2 - 3 days - Reason: Recheck today's complaints, Continuance of care, Re-evaluation by your physician Discharge Instructions: - Discharge Summary Sheet pm1 - Methamphetamines Use Disorder pm1 - Generalized Anxiety Disorder, Adult pm1 - Managing Anxiety, Adult pm1 Forms: - Medication Reconciliation Form pm1 - Thank You Letter pm1 - Antibiotic Education pm1 - Prescription Opioid Use pm1 Signatures: Demarcus Mancilla MD MD kdr Chante Warner RN RN iw Venkatesh Funez NP [employer] pm1 Radha Paez RN RN ld1
--- NOTE | 2021-09-16 15:37 | ER ---
Nurse's Notes [facility] Name: Tiffany Quinn Age: 51 yrs Sex: Female : 1970 Arrival Date: 09/16/2021 Time: 15:08 Bed 9 Private MD: Diagnosis: Anxiety disorder, unspecified Presentation: 09/16 15:15 Chief complaint: Patient states: I can't catch my breath, I was seen here last night, I iw feel like my skin is loose and is melting off me. Coronavirus screen: At this time, the client does not indicate any symptoms associated with coronavirus-19. Ebola Screen: Patient negative for fever greater than or equal to 101.5 degrees Fahrenheit, and additional compatible Ebola Virus Disease symptoms Patient denies exposure to infectious person. Patient denies travel to an Ebola-affected area in the 21 days before illness onset. No symptoms or risks identified at this time. 15:15 Method Of Arrival: Ambulatory iw 15:17 Initial Sepsis Screen: Does the patient meet any 2 criteria? No. Patient's initial iw sepsis screen is negative. Does the patient have a suspected source of infection? No. Patient's initial sepsis screen is negative. Risk Assessment: Do you want to hurt yourself or someone else? Patient reports no desire to harm self or others. Onset of symptoms was September 16, 2021. 15:17 Acuity: MANUEL 4 iw Historical: - Allergies: 15:17 Haldol; iw 15:17 Pepcid; iw 15:17 Toradol; iw - PMHx: 15:17 Anxiety; Bipolar disorder; iw - PSHx: 15:17 breast augmentation; Cholecystectomy; hernia repair; iw Screenin:38 Abuse screen: Denies threats or abuse. Denies injuries from another. Nutritional iw screening: No deficits noted. Tuberculosis screening: No symptoms or risk factors identified. Fall Risk None identified. Assessment: 15:37 General: Appears in no apparent distress. Behavior is cooperative, anxious. Pain: iw Denies pain. Neuro: Level of Consciousness is awake, alert, obeys commands, Oriented to person, place, time, situation. Cardiovascular: Patient's skin is warm and dry. Respiratory: Respiratory effort is even, unlabored, Respiratory pattern is regular, symmetrical. Derm: Skin is intact, is healthy with good turgor. Musculoskeletal: Range of motion: intact in all extremities. Vital Signs: 15:15 BP 146 / 90; Pulse 105; Resp 16; Temp 98.5; Pulse Ox 100% on R/A; ED Course: 15:08 Patient arrived in ED. kc5 15:16 Venkatesh Funez NP is PHCP. pm1 15:16 Demarcus Mancilla MD is Attending Physician. pm1 15:17 Triage completed. iw 15:17 Arm band placed on. iw 15:56 Patient did not have IV access during this emergency room visit. ld1 Administered Medications: 15:51 Drug: hydrOXYzine 50 mg Route: PO; ld1 15:51 Follow up: Response: No adverse reaction ld1 Outcome: 15:37 Discharge ordered by . pm1 15:56 Discharged to home ambulatory. ld1 15:56 Condition: stable 15:56 Discharge instructions given to patient, Instructed on discharge instructions, follow up and referral plans. Demonstrated understanding of instructions, follow-up care. 15:56 Patient left the ED. ld1 Signatures: Chante Warner RN RN Venkatesh Funez NP VRT MECHANIC pm1 Radha Paez RN RN ld1 Yaritza May kc5
[2021-09-16] MEDS ORDERED: hydrOXYzine HCL 25 MG TAB ONE (15:41)
[2021-09-16 16:01] VITALS: BP 146/90; TEMP 98.5; O2SAT 100
== END 2021-09-16 15:56 | disposition home or self-care (01) ==
LOC: ER 15:06
DX: F41.9 Anxiety disorder, unspecified (principal); F31.9 Bipolar disorder, unspecified; Z98.82 Breast implant status; Z88.5 Allergy status to narcotic agent; Z88.8 Allergy status to other drugs, medicaments and biological substances
CPT/HCPCS: 99283

== ENCOUNTER 2021-09-17 15:05 | Emergency (ER) | payer OTHER ==
--- OUTSIDE RECORDS SUMMARY | 2021-09-17 15:11 | XMS REPORT | Continuity of Care Document ---
:1970 Author Organization [facility] t Address [address] [place] [address] Care Team Providers Name Role Phone UNKNOWN Primary Care Physician Unavailable Humaira-Mbayo_A_AH Attending Clinician Unavailable SANCHEZ Attending Clinician Unavailable Sanchez SNOW Attending Clinician Julia HOFFMANN S Attending Clinician Doctor Unassigned, Name Attending Clinician Unavailable Singer ESCALANTE Attending Clinician Attending Clinician Unavailable Chente Attending Clinician Unavailable Chente Attending Clinician Unavailable LOS Attending Clinician Unavailable Humaira-Mbayo_A_AH Admitting Clinician Unavailable SANCHEZ Admitting Clinician Unavailable Chente Admitting Clinician Unavailable LOS Admitting Clinician Unavailable Payers Payer Name Policy Type Policy Number Effective Date Expiration Date S nasim [facility] [place] [facility] [id number] 2020 [place] 00:00:00 (MEDICARE REPLACEMENT/ADVANT AGE - HMO) [facility] [id number] 2019 PLUS CLASSIC/VALUE 00:00:00 MEDICAID OF [place] [id number] 2015 00:00:00 Problems Condition Condition Condition Status Onset Resolution Last Treating Co mments Source Name Details Category Date Date Treatment Clinician Date LOW PB Diagnosis Active 2019-01-22 Mem oria 3- 01:52:00 l LOW PB 00:00: [place] 00 Active 01/21/2019 [facility] INFECTIOUS Diagnosis Active 2019-02-06 Memoria GASTROENTE 330 08:58:00 l RITIS AND 00:00: Yonis COLITIS INFECTIOUS 00 GASTROENTE RITIS AND COLITIS Active 01/21/2019 [facility] Irregular Irregular Disease Active Uni vers menstrual menstrual 8-15 ity of cycle cycle 00:00: [address] Skin Skin Disease Active Univers lesion lesion 8-15 ity of 00:00: [address] Psychiatri Psychiatri Disease Active U nivers c disorder c disorder 8-15 it y of 00:00: [address] Well woman Well woman Disease Active U nivers exam with exam with 8-15 ity of routine routine 00:00: [place] gynecologi gynecologi 00 Me dical nicky exam nicky exam Branch INFECTIOUS Diagnosis Active 2019-02-06 Memoria GASTROENTE 08:58:00 l RITIS AND Yonis COLITIS, INFECTIOUS GASTROENTE RITIS AND COLITIS, Active [facility] Allergies, Adverse Reactions, Alerts Allergy Allergy Status Severity Reaction(s) Onset Inactive Treating Comm ents Source Name Type Date Date Clinician NO KNOWN Drug Active Univers ALLERGIE Class ity of S [facility] Phenerga Phenerga Active [place] a n n winifred Somers Social History Social Habit Start Date Stop Date Quantity Comments Source History of Cigarette Smoker Universi ty of tobacco use [facility] Tobacco Comment 2-3 cigs a day [facility] Exposure to Not sure [place] of SARS-CoV-2 [facility] (event) [place] Tobacco use and 2016-06-08 2016-06-08 [facility] 00:00:00 [facility] Alcohol intake 2016-06-08 2016-06-08 0 /d University of 00:00:00 00:00:00 [facility] Sex Ass[birth year] At [birth year] Universit y of 00:00:00 00:00:00 [facility] Smoking Status Start Date Stop Date Source Social History 2019-01-22 05:00:12 Jeanne urena Current some day smoker 2016-06-08 00:00:00 [facility] Medications Ordered Filled Start Stop Current Ordering Indication Dosage Frequency Signature Comments Components Source Medication Medication Date Date Medication? Clinician (SIG) Name Name cefTRIAXone 2020-10- No 1000mg 1,000 mg, Univers (ROCEPHIN) 11-10 IV ity of 1,000 mg in 08:30: [...] ity of (PF)) 06:45: 05:54 ONCE, 1 [place] injection 4 00 :00 dose, On Medi nicky mg Wed09/10/21 at 0045, RANDA NaCl 0.9% 2020-10- No 1000mL at 999 Uni vers (NS) bolus 11-10 mL/hr, ity of infusion 05:30: 05:30 1,000 mL, Joe as 1,000 mL 00 :00 IV Medical Infusion, Branch ONCE, 1 dose, On Wed09/09/21 at 2330, RANDA amoxicillin 2020-10 Yes [id number] 500mg Take 1 Univers 500 mg 11-10 capsule by ity of capsule 00:00: mouth 3 [place] 00 (three) Medical times Branch daily. ondansetron 2019-10- No 4mg 4 mg, [facility] ers (ZOFRAN-ODT 12-01- Oral, ity of ) 15:15: 14:16 ONCE, 1 [place] disintegrat 00 :00 dose, Mon Med ical ing tablet 09/30/20 at Bra nch 4 mg 0915, Routine ondansetron 2019-10 2020- No 4mg 4 mg, Univ ers (ZOFRAN-ODT -05 05- Oral, ity of ) 14:30: 13:32 ONCE, 1 [place] disintegrat 00 :00 dose, Mon Med ical ing tablet 09/30/20 at Bra nch 4 mg 0830, Routine ondansetron 2019-10 Yes [id number] 4mg Take 1 Univers 4 mg 2-07 tablet by ity of disintegrat 00:00: mouth [place] ing tablet 00 every 8 Medica l (eight) Branch hours as needed for Nausea and Vomiting (N/V). ondansetron 2019-10 Yes [id number] 4mg Take 1 Univers 4 mg 2-07 tablet by ity of disintegrat 00:00: mouth [place] ing tablet 00 every 8 Medica l (eight) Branch hours as needed for Nausea and Vomiting (N/V). ondansetron 2019-10 Yes [id number] 4mg Take 1 Univers 4 mg 2-07 tablet by ity of disintegrat 00:00: mouth [place] ing tablet 00 every 8 Medica l (eight) Branch hours as needed for Nausea and Vomiting (N/V). ondansetron 2019-10 Yes [id number] 4mg Take 1 Univers 4 mg 2-07 tablet by ity of disintegrat 00:00: mouth [place] ing tablet 00 every 8 Medica l (eight) Branch hours as needed for Nausea and Vomiting (N/V). ciprofloxac 2018- Yes 500 mg = 1 Memoria in 500 mg 4-04 tab, PO, l oral tablet 17:35: [id number], X Yonis 00 4 day, # 8 tab, 0 Refill(s) Ondansetron Yes 4 mg = 1 Me moria 4 MG Oral 4-04 tab, PO, l Tablet 17:35: Q6H, PRN [place] [Zofran] 00 Nausea/Vom iting, # 20 tab, 0 Refill(s) tramadol Yes 50 mg = 1 Estrada doni hydrochlori 4-04 tab, PO, l de 50 MG 17:35: Q6H, PRN Deloris nn Oral Tablet 00 Pain Score 1-3, X 5 day, # 20 tab, 0 Refill(s) Metronidazo 2018- Yes 500 mg = 1 Memoria le 500 MG 4-04 tab, PO, l Oral Tablet 17:35: [id number], X H ermann 00 4 day, # 12 tab, 0 Refill(s) ciprofloxac 2018-0 Yes 500 mg = 1 Memoria in 500 mg 4-04 tab, PO, l oral tablet 17:35: [id number], X Yonis 00 4 day, # 8 tab, 0 Refill(s) Ondansetron 2019-0 Yes 4 mg = 1 Me moria 4 MG Oral 4-04 tab, PO, l Tablet 17:35: Q6H, PRN [place] [Zofran] 00 Nausea/Vom iting, # 20 tab, [...] 4-03 (Same as: l 13:26: K-Dur 20) [place] 00 "Do Not Crush" Give with food and full glass of water For patients unable to swallow tablet, dissolve in one half glass of water. Allow about 2 minutes for the tablets to disintegra te. Stir before giving to prepare slurry and administer . Please exclude Patient s with feeding tube less than 14 [place] (Dobhoff, J-tube etc) and pediatric and patients. [...] s with feeding tube less than 14 [place] (Dobhoff, J-tube etc) and pediatric and patients. Strattera No 0.5 mg/kg, Me moria 4-02 Route: PO, l 14:00: QAM, Yonis 00 Dosing Weight 75, kg, Start date: 01/24/19 9:00:00 CDT, Duration: 30 day, Stop date: 02/22/19 9:00:00 CDT Strattera No 0.5 mg/kg, Me moria 4-02 Route: PO, l 14:00: QAM, Yonis 00 Dosing Weight 75, kg, Start date: 01/24/19 9:00:00 CDT, Duration: 30 day, Stop date: 02/22/19 9:00:00 CDT lithium 2019-0 No Notes: Do Memor ia 4-02 not crush l 02:00: or chew. (Same as: Eskalith-C R) lithium 2019-0 No Notes: Do Memor ia 4-02 not crush l 02:00: or chew. (Same as: Eskalith-C R) Risperdal 2018-0 No Notes: Memori a 4-01 (Same as: l 22:00: Risperdal) Strattera 0 No 1 mg, Memoria 4-01 Route: PO, l 22:00: QPM, Dosing Weight 75, kg, Start date: 01/23/19 17:00:00 CDT, Duration: 30 day, Stop date: 02/21/19 17:00:00 CDT Risperdal 2018-0 No Notes: Memori a 4-01 (Same as: l 22:00: Risperdal) ttera No 1 mg, Memoria 4-01 Route: PO, l 22:00: QPM, Dosing Weight 75, kg, Start date: 01/23/19 17:00:00 CDT, Duration: 30 day, Stop date: 02/21/19 17:00:00 CDT normal [id number] No 1,000 mL, Memori a saline 0.9% [...] ia 4-01 (Same As: l 18:00: KlonoPIN) [place] 00 Clonazepam No Notes: Memor ia 4- (Same As: l 18:00: KlonoPIN) [place] Flagyl No Notes: Memoria 4- (Same as: l 15:00: Flagyl) Yonis 00 Take with food/ avoid alcohol Cipro No Notes: May Memori a 4- interfere l 15:00: w/enteral [place] 00 feedings - Take 1 hr before or 2 hrs after antacids, dairy pdt & minerals. On empty stomach. Flagyl No Notes: Memoria 4- (Same as: l 15:00: Flagyl) [place] 00 Take with food/ avoid alcohol Cipro No Notes: May Memori a 4-01 interfere l 15:00: w/enteral Yonis 00 feedings [...] PO, ONCE, l mEq oral 14:20: 0 [place] tablet, 00 Refill(s) extended release Metronidazo No 500 mg, Mem oria le 500 MG 4-01 PO, l Oral Tablet 14:20: [id number], 0 H ermann [Flagyl] 00 Refill(s) Ciprofloxac No 500 mg, Mem oria in 500 MG 4-01 PO, l Oral Tablet 14:20: [id number], 0 Yonis [Cipro] 00 Refill(s) potassium Yes 40 mEq, Memor ia chloride 20 4-01 PO, ONCE, l mEq oral 14:20: 0 Yonsi tablet, 00 Refill(s) extended release Metronidazo No 500 mg, Mem oria le 500 MG 4-01 PO, l Oral Tablet 14:20: [id number], 0 H ermann [Flagyl] 00 Refill(s) Ciprofloxac No 500 mg, Mem oria in 500 MG 4-01 PO, l Oral Tablet 14:20: [id number], 0 [place] [Cipro] 00 Refill(s) Potassium No Notes: Memori a Chloride - (Same as: l 14:17: K-Dur 20) Yonis 00 "Do Not Crush" Give with food and full glass of water For patients unable to swallow tablet, dissolve in one half glass of water. Allow about 2 minutes for the tablets to disintegra te. Stir before giving to prepare slurry and administer . Please exclude Patient s with feeding tube less than 14 [place] (Dobhoff, J-tube etc) and pediatric and patients. Potassium No Notes: Memori a Chloride -01 (Same as: l 14:17: K-Dur 20) [place] 00 "Do Not Crush" Give with food and full glass of water For patients unable to swallow tablet, dissolve in one half glass of water. Allow about 2 minutes for the tablets to disintegra te. Stir before giving to prepare slurry and administer . Please exclude Patient s with feeding tube less than 14 [place] (Dobhoff, J-tube etc) and pediatric and patients. Pepcid No Notes: Memoria 3-31 (Same as: l 22:00: Pepcid) Yonis 00 Pepcid No Notes: Memoria 3-31 (Same as: l 22:00: Pepcid) [place] 00 Strattera Yes 0.5 mg/kg, Me moria [...] tab, PO, l Tablet 21:08: BID, 0 [place] [Risperdal] 00 Refill(s) Strattera Yes 0.5 mg/kg, [...] tab, PO, l Tablet 21:08: BID, 0 [place] [Risperdal] 00 Refill(s) Zosyn No Notes: Memoria [...] exceed l 15:03: 400mg/day. (Same As: Ultram) Tramadol No Notes: Not [...] No 12.5 gm, Memor ia 50% Syringe -31 25 mL, l 09:47: Route: [place] 00 IVP, Drug Form: INJ, Dosing Weight 75.994, kg, PRN, PRN Blood Glucose Results, Start date: 01/22/19 4:47:00 CDT, Duration: 30 day, Stop date: 02/21/19 4:46:00 CDT Ondansetron 2018-0 No Notes: Estrada doni 3-31 (Same as: l 09:47: Kurtis) Yonis MEDICATION WASTE Product Size: 4 mg Product Wasted: ___ mg Glucagon 2019-0 No 1 mg, Memoria 3-31 Route: IM, l 09:47: Drug form: [place] 00 PDR/INJ, PRN, Dosing Weight 75.994, kg, [...] Stop date: 01/22/19 3:52:00 CDT NS (Bolus) 0 No 1,000 mL, Me moria IV 3-31 1,000 l 08:52: ml/hr, Yonis 00 Infuse Over: 1 hr, Route: IV, 1,000, Drug form: INJ, ONCE, Priority: STAT, Dosing Weight 75.994 kg, Start date: 01/22/19 3:52:00 CDT, Stop date: 01/22/19 3:52:00 CDT Visipaque 0 No Notes: Memori a 320 mg/mL -31 [...] Memoria 3-31 (Same as: l 06:10: Zosyn) [place] 00 Dosing based on Piperacill in component MEDICATION WASTE Product Size: 3375 mg Product Wasted: ___ mg Zosyn No Notes: Memoria 3-31 (Same as: l 06:10: Zosyn) Yonis 00 Dosing based on Piperacill in component MEDICATION WASTE Product Size: 3375 mg Product Wasted: ___ mg NS (Bolus) No 1,000 mL, Me moria IV 3-31 1,000 l 05:44: ml/hr, [place] 00 Infuse Over: 1 hr, Route: IV, [...] 3-31 Same as: l 04:52: BD Yonis Posiflush Sterile Zofran No Notes: Memoria 3-31 (Same as: l 04:52: Zofran) Yonis 00 MEDICATION WASTE Product Size: 4 mg Product Wasted: ___ mg Saline No Notes: Memoria Flush 0.9% 01-22 Same as: l 04:52: BD Posiflush Sterile NS (Bolus) No 1,000 mL, Me moria IV 3-31 1,000 l 04:51: ml/hr, Infuse Over: 1 [...] (KLONOPIN 8-15 mouth. ity of ORAL) 19:02: [place] [id number] Medical Branch CITALOPRAM 2016-0 Yes Take by Uni vers HYDROBROMID 8-15 mouth. ity of E 19:02: [place] (CITALOPRAM 27 Medical ORAL) Branch ibuprofen 2016-0 Yes 200mg Take 200 Uni vers (ADVIL) 200 8-15 mg by ity of mg tablet 14:02: mouth [place] [id number] every 6 Medical (six) Branch hours as needed. CLONAZEPAM 2016-0 Yes Take by Uni vers (KLONOPIN 8-15 mouth. ity of ORAL) 14:02: [place] [address] Medical Branch CITALOPRAM 2016-0 Yes Take by Uni vers HYDROBROMID 8-15 mouth. ity of E 14:02: [place] (CITALOPRAM 27 Medical ORAL) Branch ibuprofen 0 Yes 200mg Take 200 Uni vers (ADVIL) 200 8-15 mg by ity of mg tablet 14:02: mouth [place] [id number] every 6 Medical (six) Branch hours as needed. CLONAZEPAM 2016-0 Yes Take by Uni vers (KLONOPIN 8-15 mouth. ity of ORAL) 14:02: [address] Branch CITALOPRAM 2016-0 Yes Take by Uni vers HYDROBROMID 8-15 mouth. ity of E 14:02: [place] (CITALOPRAM 27 Medical ORAL) Branch ibuprofen 2015-0 Yes 200mg Take 200 Uni vers (ADVIL) 200 8-15 mg by ity of mg tablet 14:02: mouth [place] [id number] every 6 Medical (six) Branch hours as needed. CLONAZEPAM 2016-0 Yes Take by Uni vers (KLONOPIN 8-15 mouth. ity of ORAL) 14:02: [address] Branch CITALOPRAM 2016-0 Yes Take by Uni vers HYDROBROMID 8-15 mouth. ity of E 14:02: [place] (CITALOPRAM 27 Medical ORAL) Branch misoprostol 2015-0 Yes 200ug Take 1 Uni [...] one tab the morning of procedure butalbital- 2015-0 Yes TK 1 TO 2 [...] 00 Medical 50-325-40 Branch mg tablet dextroamphe 2015- Yes TK 1 T PO U nivers [...] Take 1 Tab Uni vers (ULTRAM) 50 -16 by mouth ity of mg tablet 00:00: [...] 2021-09-10 08:01:00 138 mm[Hg] Univer sity of [facility] Diastolic blood 2021-09-10 08:01:00 97 [facility]Hg[facility] 2021-09-10 08:01:00 87 /min [facility] Respiratory rate 2021-09-10 08:01:00 20 /min [facility] Oxygen saturation in 2021-09-10 08:01:00 98 /min [facility] Arterial blood by [facility] Pulse oximetry [place] Body temperature 2021-09-10 04:28:51 37.17 Ruthann [facility] Body height 2021-09-10 04:26:00 154.9 cm [facility] Body weight 2021-09-10 04:26:00 81.647 kg [facility] BMI 2021-09-10 04:26:00 34.01 kg/m2 [facility] Systolic blood 2021-09-09 20:06:00 150 mm[Hg] Univer sity of [facility] Diastolic blood 2021-09-09 20:06:00 89 mm[Hg] [facility] 2021-09-09 20:06:00 108 /min [facility] Body temperature 2021-09-09 20:06:00 37.22 Ruthann [facility] Respiratory rate 2021-09-09 20:06:00 18 /min [facility] Oxygen saturation in 2021-09-09 20:06:00 99 /min University of Arterial blood by [facility] Pulse oximetry Branch Body weight 2021-09-09 20:05:00 81.647 kg Universi ty of [place] [facility] BMI 2021-09-09 20:05:00 32.40 kg/m2 Universi ty of [place] [facility] Systolic blood 2020-09-30 14:00:00 126 mm[Hg] Univer sity of pressure [place] [facility] Diastolic blood 2020-09-30 14:00:00 84 mm[Hg] Unive rsity of pressure [place] [facility] Heart rate 2020-09-30 14:00:00 79 /min Universi ty of [place] [facility] Oxygen saturation in 2020-09-30 14:00:00 98 /min University of Arterial blood by [facility] Pulse oximetry Branch Body temperature 2020-09-30 13:26:00 37.22 Ruthann Univ ersity of [place] [facility] Respiratory rate 2020-09-30 13:26:00 16 /min Univ ersity of [place] [facility] Body weight 2020-09-30 13:26:00 72.576 kg Universi ty of [place] [facility] BMI 2020-09-30 13:26:00 28.80 kg/m2 Universi ty of [place] [facility] Systolic blood 2020-09-30 14:00:00 126 mm[Hg] Univer sity of pressure [place] [facility] Diastolic blood 2020-09-30 14:00:00 84 mm[Hg] Unive rsity of pressure [place] [facility] Heart rate 2020-09-30 14:00:00 79 /min Universi ty of [place] [facility] Oxygen saturation in 2020-09-30 14:00:00 98 /min University of Arterial blood by [facility] Pulse oximetry Branch Body temperature 2020-09-30 13:26:00 37.22 Ruthann Univ ersity of [place] [facility] Respiratory rate 2020-09-30 13:26:00 16 /min Univ ersity of [place] [facility] Body weight 2020-09-30 13:26:00 72.576 kg Universi ty of [place] [facility] BMI 2020-09-30 13:26:00 28.80 kg/m2 [facility]i ty [facility] [place] [facility] Temperature Oral (F) 2019-01-28 01:16:[address] [facility] Systolic (mm Hg) 2019-01-28 01:16:00 Estrada rial Yonis Diastolic (mm Hg) 2019-01-28 01:16:00 Mem orial Yonis Heart Rate 2019-01-28 01:16:00 [facility] [place] Respitory Rate 2019-01-28 01:16:00 Memori al Yonis Systolic (mm Hg) 2019-01-27 20:42:00 Estrada rial Yonis Diastolic (mm Hg) 2019-01-27 20:42:00 Mem orial Yonis Heart Rate 2019-01-27 20:42:00 [facility] [place] Respitory Rate 2019-01-27 20:42:00 Memori al Yonis Temperature Oral (F) 2019-01-27 20:42:00 98.5 F [facility] [place] Systolic (mm Hg) 2019-01-27 17:00:00 Estrada rial Yonis Diastolic (mm Hg) 2019-01-27 17:00:00 Mem orial [place] Temperature Oral (F) 2019-01-27 17:00:00 98.5 F Memorial [place] Heart Rate 2019-01-27 17:00:00 [facility] [place] Respitory Rate 2019-01-27 [facility] Height 2019-01-22 14:35:[address] [facility] BMI Calculated 2019-01-22 14:35:00 Memori al [place] Weight 2019-01-22 14:35:00 [facility] [place] Weight 2019-01-22 04:34:00 [facility] Procedures Procedure Date / Time Performing Clinician Source Performed URINALYSIS 2021-09-10 06:03:00 Neena Bradford [facility] URINE DRUG (IMMUNOASSAY) 2021-09-10 06:03:00 Neena Bradford [facility] SCREEN W/O REFLEX XR CHEST 1 VW 2021-09-10 04:57:30 Neena Bradford [facility] CREATINE KINASE 2021-09-10 04:39:00 Neena Bradford [facility] MAGNESIUM 2021-09-10 04:39:00 Neena Bradford [facility] TROPONIN I 2021-09-10 04:39:00 Neena Bradford [facility] COMP. METABOLIC PANEL 2021-09-10 04:39:00 Neena Bradford [facility] ([id number]) Medical Branch CBC WITH DIFF 2021-09-10 04:39:00 Neena Bradford [facility] PROTHROMBIN TIME / INR 2021-09-10 04:39:00 Neena Bradford [facility] ACTIVATED PARTIAL 2021-09-10 04:39:00 Sanchez [facility] THRMPLAS [facility] N-TERMINAL PRO-BNP 2021-09-10 04:39:00 Neena Bradford [facility] COVID-19 (ID NOW RAPID 2021-09-10 04:39:[address] [facility] TESTING) Medical Branch TROPONIN I 2021-09-09 21:49:00 [facility] MET[facility]OLIC PANEL 2021-09-09 21:49:00 Luanne Dumont [facility] ([id number]) Medical Branch LITHIUM 2021-09-09 21:49:00 Luanne Dumont [facility] CBC WITH DIFF 2021-09-09 21:49:[address] [facility] CONSENT/REFUSAL FOR 2021-09-09 19:51:22 Doctor Unassigned, No Un [facility] DIAGNOSIS AND TREATMENT Name Medical Branch URINALYSIS 2020-09-30 13:27:00 Chuy Jackson [facility] ADC,CLC OR LCC ONLY - 2020-09-30 13:27:00 Chuy Jackson [facility] INFLUENZA A & B DIRECT Medical B ranch ANTIGEN COVID-19 (ID NOW RAPID 2020-09-30 13:27:00 [facility] TESTING) Medical Branch Encounters Start End Encounter Admission Attending Care Care Encounter Source Date/Time Date/Time Type Type Clinicians Facility Department ID 2021-09-08 Outpatient Humaira-Mbayo VFP VFP [id number] [place] 02:24:16 _A_ [id number] Family Practic e 2021-09-07 Outpatient Humaira-Mbayo VFP VFP [id number] [place] 22:13:27 _A_ [id number] Family Practic e 2021-09-07 Outpatient Humaira-Mbayo VFP VFP [id number] - [facility] 13:23:42 _A_AH 18730 Family Practic e 2021-09-06 Outpatient Humaira-Mbmanojo VFP [facility] [id number] - [place] 04:23:58 _A_AH 31722 Family Practic e 2021-09-05 Outpatient Humaira-Mbayo VFP [facility] [id number] [place] 19:22:48 _A_AH 19962 Family Practic e 2019-01-22 Inpatient E [facility] MED [id number] [facility] W 04:39:00 2021-09-09 2021-09-10 [id number] Univers 22:20:00 03:02:00 NEENA tubbs [facility] 2021-09-09 2021-09-10 [facility] [id number] Univers 22:20:00 03:02:00 Neena JIMENEZ [id number] i ty of [place] 4.2.7.2.686 [facility] [id number] [place] [id number] [place] 2021-09-09 2021-09-10 Emergency [facility] [id number] Univers 22:20:00 03:02:00 NEENA tubbs [facility] 2021-09-09 2021-09-09 [facility] [id number] Univers 14:07:00 17:35:00 Luanne JIMENEZ 350.1.13.10 i ty of [place] 4.2.7.2.686 [facility] [id number] [facility] 084 Branch 2021-09-09 2021-09-09 Orders Doctor BELKYS [id number] Univers 00:00:00 00:00:00 Only Unassigned, LANA 350.1.13.10 ity of [place] [facility] 4.2.7.2.686 [facility] [id number] [facility] 009 Branch 2020-09-30 2020-09-30 Emergency [facility] [id number] Univers 07:22:00 08:18:00 Chuy Jimenez 350.1.13.10 i ty of [place] 4.2.7.2.686 [facility] [id number] [place] [address] Branch 2020-09-30 2020-09-30 Emergency [facility] [id number] 07:22:00 08:18:00 Chuy Jimenez 350.1.13.10 [place] 4.2.7.2.686 [place] [id number] 2020-09-30 2020-09-30 Emergency X [facility] ERT [id number] Univers 07:22:00 07:22:00 CHUY tubbs [facility] 2020-03-04 2020-03-14 Inpatient 3 [place], [facility] [id number] 15:38:00 15:25:00 [facility] 2019-01-22 2019-01-28 Inpatient [facility] [id number] Memoria 04:33:00 04:40:00 r Yonis 00 l [facility] 2018-02-21 2018-02-20 Inpatient E [facility] [id number] 14:48:00 13:18:00 [facility] Results Test Description Test Time Test Comments Results Result Comments Source TROPONIN I 2021-09-10 05:26:53 Test Item Value Reference Range Interpretation Comme nts TROPONIN I (test code = 0.003 ng/mL See_Comment [Au tomated message] The [id number]) system which ge nerated this result tra [...] biotin. Lab Interpretation Normal (test code = 26873-9) [id number] 05:24:16 Test Item Value Reference Range Interpretation Comments NT-proBNP (test code 35 pg/mL See_Comment [Autom ated = [id number]) message] The system which generated this result transmitted reference range : <=125. The reference range was not used to interpret this result as normal/abnormal . PERRY (test code = PERRY) Biotin has been reported to cause a negative bias, interpret results relative to patient's use of biotin. Lab Interpretation Normal (test code = 65767-1) [facility] 05:16:51 Test Item Value Reference Range Interpretation Comments MAGNESIUM (test code = 3890888244) 1.8 mg/dL 1.7-2.4 Lab Interpretation (test code = Normal 23736-1) [facility] ([id number])2021-09-10 05:16:31 Test Item Value Reference Range Interpretation Comments NA (test code = 139 mmol/L 135-145 5657599489) K (test code = 4.0 mmol/L 3.5-5.0 5704684624) CL (test code = 108 mmol/L 98-108 8262903222) CO2 TOTAL (test code 25 mmol/L 23-31 = 5765039040) AGAP (test code = 2-16 6310466417) BUN (test code = 14 mg/dL 7-23 5415797784) GLUCOSE (test code = 88 mg/dL 70-110 1170639284) CREATININE (test code 0.89 mg/dL 0.50-1.04 = 0478808840) TOTAL BILI (test code 0.5 mg/dL 0.1-1.1 = 5820039866) CALCIUM (test code = 10.3 mg/dL 8.6-10.6 6982639733) T PROTEIN (test code 6.9 g/dL 6.3-8.2 = 7439672456) ALBUMIN (test code = 4.3 g/dL 3.5-5.0 6436854497) ALK PHOS (test code = 72 U/L 34-122 0415792296) ALTv (test code = 17 U/L 5-35 1742-6) AST(SGOT) (test code 29 U/L 13-40 = 1637127562) eGFR (test code = mL/min/1.73m2 7016188914) PERRY (test code = PERRY) Association of [...] or urine or abnormalities in imaging tests). [facility] MAGAEW4622-55-62 05:16:16 Test Item Value Reference Range Interpretation Comments CK (test code = 8462772390) 267 U/L 33-194 H Lab Interpretation (test code = Abnormal 36873-2) [facility] CenterACTIV[facility] PARTIAL THRMPLAS [id number] 05:05:32 Test Item Value Reference Range Interpretation Comments APTT Patient (test See_Comment [Automat ed code = 3173-2) message] The system which generated this result transmitted reference range : 23 - 38 Seconds . The reference range was not used to interpr et this result as normal/abnormal . PERRY (test code = PERRY) The [facility] patient population mean normal value for aPTT is 30 seconds. Lab Interpretation Normal (test code = 81140-6) [facility] CenterPROTHROMBIN TIME / [id number] 05:03:30 Test Item Value Reference Range Interpretation [...] tions. Lab Interpretation (test Normal code = 20338-0) [facility]CBC WITH [id number] 04:57:13 Test Item Value Reference Range Interpretation Comments WBC (test code = See_Comment [Automated 0590-2) message] The sy stem which generated this result transmitted reference range : 4.30 - 11.10 10*3/?L. The reference range was not used to interpret this result as normal/abnormal . RBC (test code = See_Comment [Automated 179-8) message] The sy stem which generated this [...] RDW-SD (test code = 41.2 fL 39.0-49.9 94225-0) RDW-CV (test code = 13.0 % 12.0-15.5 788-0) PLT (test code = See_Comment H [Automated 687-3) message] The sy stem which generated this result transmitted reference range : 166 - 358 10*3/ ?L. The reference r katie was not used to interpret this result as normal/abnormal . MPV (test code = 9.6 fL 9.5-12.9 80739-3) NRBC/100 WBC (test See_Comment [Automat ed code = 4859204618) message] The system which generated this result transmitted reference range : 0.0 - 10.0 /100 WBCs. The refer ence range was not u sed to interpret th is result as normal/abnormal . NRBC x10^3 (test code <0.01 See_Comment [Auto mated = 7365022959) message] The s ystem which generated this result transmitted reference range : 10*3/?L. The reference range was not used to interpret this result as normal/abnormal . GRAN MAT (NEUT) % 61.9 % (test code = 770-8) IMM GRAN % (test code 0.30 % = 9244098599) LYMPH % (test code = 26.0 % 736-9) MONO % (test code = 9.5 % 5905-5) EOS % (test code = 1.6 % 713-8) BASO % (test code = 0.7 % 706-2) GRAN MAT x10^3(ANC) 5.91 10*3/uL 1.88-7.09 (test code = 9450418623) IMM GRAN x10^3 (test 0.03 10*3/uL 0.00-0.06 code = 5510941609) LYMPH x10^3 (test code 2.48 10*3/uL 1.32-3.29 = 731-0) MONO x10^3 (test code 0.91 10*3/uL 0.33-0.92 = 742-7) EOS x10^3 (test code = 0.15 10*3/uL 0.03-0.39 711-2) BASO x10^3 (test code 0.07 10*3/uL 0.01-0.07 = 704-7) Lab Interpretation Abnormal (test code = 72509-2) [facility] CenterJESSICA [id number] 22:24:55 Test Item Value Reference Interpretation Comments Range TROPONIN I (test 0.002 ng/mL See_Comment [Automated code = 1326903461) message] The system which generated this result [...] biotin. Lab Interpretation Normal (test code = 29626-5) [facility] CenterLITHIUM2021-[facility]-16 22:24:34 Test Item Value Reference Range Interpretation Comments [place] (test code = <0.2 0.6-1.2 L 0913660582) PERRY (test code = PERRY) Toxic Range: ? Greater than 1.2 mmol/L Lab Interpretation (test Abnormal code = 45783-8) [facility]. METABOLIC PANEL (97411)2021-09-09 22:13:54 Test Item Value Reference Range Interpretation Comments NA (test code = 139 mmol/L 135-145 1409772530) K (test code = 4.0 mmol/L 3.5-5.0 1630070536) CL (test code = 105 mmol/L 98-108 0173681355) CO2 TOTAL (test code 26 mmol/L 23-31 = 8076675473) AGAP (test code = 2-16 2466104040) BUN (test code = 11 mg/dL 7-23 9407633604) GLUCOSE (test code = 109 mg/dL 70-110 1577941751) CREATININE (test code 0.71 mg/dL 0.50-1.04 = 5351382792) TOTAL BILI (test code 0.6 mg/dL 0.1-1.1 = 0215371055) CALCIUM (test code = 10.4 mg/dL 8.6-10.6 5594401366) T PROTEIN (test code 7.6 g/dL 6.3-8.2 = 6903621173) ALBUMIN (test code = 4.7 g/dL 3.5-5.0 5081856500) ALK PHOS (test code = 78 U/L 34-122 2712423269) ALTv (test code = 19 U/L 5-35 1742-6) AST(SGOT) (test code 28 U/L 13-40 = 4649512837) eGFR (test code = mL/min/1.73m2 3682153488) PERRY (test code = PERRY) Association of [...] or urine or abnormalities in imaging tests). [facility] WITH [id number] 22:03:32 Test Item Value Reference Range Interpretation [...] RDW-SD (test code = 40.2 fL 39.0-49.9 42000-0) RDW-CV (test code = 12.9 % 12.0-15.5 788-0) PLT (test code = See_Comment H [Automated 777-3) message] The sy stem which generated this result transmitted reference range : 166 - 358 10*3/ ?L. The reference r katie was not used to interpret this result as normal/abnormal . MPV (test code = 9.4 fL 9.5-12.9 L 41942-3) NRBC/100 WBC (test See_Comment [Automat ed code = 0864197110) message] The system which generated this result transmitted reference range : 0.0 - 10.0 /100 WBCs. The refer ence range was not u sed to interpret th is result as normal/abnormal . NRBC x10^3 (test code <0.01 See_Comment [Auto mated = 1742533876) message] The s ystem which generated this result transmitted reference range : 10*3/?L. The reference range was not used to interpret this result as normal/abnormal . GRAN MAT (NEUT) % 67.1 % (test code = 770-8) IMM GRAN % (test code 1.00 % = 8457870206) LYMPH % (test code = 21.4 % 736-9) MONO % (test code = 7.9 % 5905-5) EOS % (test code = 1.8 % 713-8) BASO % (test code = 0.8 % 706-2) GRAN MAT x10^3(ANC) 7.35 10*3/uL 1.88-7.09 H (test code = 5978054172) IMM GRAN x10^3 (test 0.11 10*3/uL 0.00-0.06 H code = 3501619298) LYMPH x10^3 (test code 2.34 10*3/uL 1.32-3.29 = 731-0) MONO x10^3 (test code 0.86 10*3/uL 0.33-0.92 = 742-7) EOS x10^3 (test code = 0.20 10*3/uL 0.03-0.39 711-2) BASO x10^3 (test code 0.09 10*3/uL 0.01-0.07 H = 704-7) Lab Interpretation Abnormal (test code = 35569-5) [facility] CenterADC,CLC OR LCC ONLY - INFLUENZA A & B DIRECT [id number] 14:04:00 Test Item Value Reference Range Interpretation Comments Influenza A (test code = 79564-0) Negative Negative Influenza B (test code = 57187-1) Negative Negative Lab Interpretation (test code = Normal 99285-8) [facility] CenterCOVID[facility]19 (ID NOW RAPID TESTING)2020-09-30 14:03:00 Test Item Value Reference Range Interpretation Comments SARS-CoV-2 Rapid ID NOW Not Detected Not Detected (test code = 30940-9) PERRY (test code = PERRY) ID NOW COVID-19 Assay is an isothermal nucleic acid amplification test intended for the qualitative detection of nucleic acid from SARS-CoV-2 viral RNA in nasopharyngeal (LENS MARKER) specimens. It is used under Emergency Use [...] indicated. Lab Interpretation Normal (test code = 23239-5) [facility] CenterURINALYSIS2020-12-07 13:55:00 Test Item Value Reference Range Interpretation Comments APPEARANCE (test code = Hazy Clear A 4415134498) COLOR (test code = Yellow Yellow 0925816850) PH (test code = 4.8-8.0 2463644388) SP GRAVITY (test code = 1.003-1.030 1126370454) GLU U QUAL (test code = Normal Normal 0242157300) BLOOD (test code = Negative Negative 7039601451) KETONES (test code = 5 mg/dL Negative A 6281971898) PROTEIN (test code = Negative Negative 2887-8) UROBILIN (test code = 2.0 mg/dL Normal A 1293705641) BILIRUBIN (test code = Negative Negative 1767275204) NITRITE (test code = Negative Negative 4450156740) LEUK ROZINA (test code = 25/uL Negative A 2876554882) RBC/HPF (test code = See_Comment [Autom ated message] 5367017187) The system [employer] generated this result transmit ngozi reference range : 0 - 3 HPF. The refe rence range was not u sed to interpret th is result as normal/abnormal . WBC/HPF (test code = See_Comment [Autom ated message] 2029133891) The system [employer] generated this result transmit ngozi reference range : 0 - 5 HPF. The refe rence range was not u sed to interpret th is result as normal/abnormal . BACTERIA (test code = Few Negative A 6758199427) MUCOUS (test code = Slight Negative LPF A 6945206097) SQ EPITH (test code = HPF 5762804763) Lab Interpretation (test Abnormal code = 19568-6) [facility] CenterRPR Iwaemuiqygn0510-99-91 16:42:24 Test Item Value Reference Range Interpretation [...] = 10-24-2020 N Expiration Dt) Thyroid Stimulating Vspyjwz5202-64-68 08:35:16 Test Item Value Reference Range Interpretation Comments TSH (test code = TSH) 1.170 mIU/mL 0.270-4.200 Lipid Mrmqk7682-28-25 08:21:19 Test Item Value Reference Range Interpretation Comments Cholesterol Total 254 mg/dL 0-200 H RISK OF HE ART (test code = DISEASEPublishe d by Cholesterol Total) [place] [employer] Cathie lyte Optimal Borderl ine [...] calculation is LDL/HDL Ratio=L DL Calc/HDL Chol PDOGHPDUSXGE6801-00-82 08:24:008.6[facility] YnwlzkxJPFJMWXADICE5011-14-14 08:24:62161Efnnlekv KpidmzjHPHUDRQHCQEZ8612-47-27 08:24:0027[facility] BVATSHATXARU4035-43-99 08:24:12061Qtgxwele DmxxkcvQKYHWWNYKDUE8482-55-96 08:24:003.6[facility] OuoakzeVLIFCTHDHGLE0070-46-42 08:24:000.70[facility] BEKFDZJGNOZS0328-56-84 08:24:008.4[facility] DichaaoRQZNQOVKTQAF5851-17-82 08:24:33700Ebvgsitt VbdmvtyVVZZWSRIJNVA1202-20-58 08:24:0086[facility] ZYOOWFRDAJZY5578-28-08 08:24:006[facility] AxzigkkRKXZCDKPUV5861-61-20 08:24:00 11.6[facility] WsrnnubWJHECQLFSY6681-91-35 08:24:003.78[facility]annHEMATOLOGY 2019-01-26 08:24:0013.3[facility] FmxtksrSTSSPQBMTA8711-04-96 08:24:0034.0[facility] GuhthgtLOJDGRWNAV3533-38-21 08:24:006.3[facility] XjiicteTYNNUQBPOX0176-62-43 08:24:00 Test Item Value Reference Range Interpretation Comments MCH (test code = MCH) 30.7 pg 27.0-31.0 [facility] HkyskhuEJCSJEQMGL0297-75-10 08:24:0090.3[facility]annHEMATOLOGY 2019-01-26 08:24:0034.2[facility] BsubpbsQVBYQLJIBN5624-57-95 08:24:82918Votoulpu JkulgeiYKFTULJJKG6425-35-86 08:24:007.5[facility] OvqypyvZISLJGBKEDSE1669-52-04 08:24:008.6[facility] TzxdjgmPJMLYWADQJCJ5559-47-43 08:24:00350Dhmsiymf [place] UKCNAQUCWAKO1539-18-94 08:24:0027[facility] NykkyezPGYCACCDRVEG1119-29-31 08:24:00 139[facility] SvvajnuKCLQHKUIBDLK6849-32-40 08:24:003.6[facility] [place] WURKECZXRRID3662-71-19 08:24:000.70[facility] KobkecaXQYXYOZQULVW3754-71-74 08:24:008.4[facility] ZrfvbagNOZUMRYYYNTG4925-22-53 08:24:39067Ncgbcsqz [place] CSONHENVVNEL7215-82-52 08:24:0086[facility] FpjyjjxRHLAXMUZYMJD9195-92-65 08:24:00 6[facility] DbrdpmeZJEDYVZEKQ5668-70-09 08:24:0011.6[facility] HermannHEMATOLOGY 2019-01-26 08:24:003.78[facility] XtcktojNRAALBPXNX1358-73-55 08:24:0013.3[facility] DnernbjHMCNQPFRKX1858-27-98 08:24:0034.0[facility] QasdnpsLOKXMJSXYE0716-24-29 08:24:006.3[facility] EygbbmaRTEQVAMWXC0972-64-95 08:24:00 Test Item Value Reference Range Interpretation Comments MCH (test code = MCH) 30.7 pg 27.0-31.0 [facility] PxjbhavZCETJOIYCL3220-48-51 08:24:0090.3[facility]annHEMATOLOGY 2019-01-26 08:24:0034.2[facility] MubetifZLZWNVYZQX8060-18-42 08:24:02134Sqsxwxmy OgifhamGXHXCVQCAH0627-82-77 08:24:007.5[facility] HermannCHEM BIJZY9248-45-88 09:14:40482Ompqunxo HermannCHEM FTPKX8274-56-11 09:14:008.5[facility] HermannCHEM JVTUW6865-50-09 09:14:0013.3[facility]annCHEM JBUDU7890-90-02 09:14:0024 [facility]annCHEM ZZWJX2536-37-75 09:14:44175Fjanzrvn HermannCHEM PANEL 2019-01-25 09:14:0081[facility]annCHEM YVHRX7565-92-70 09:14:002[facility]annCHEM TQPGK8373-20-51 09:14:003.3[facility]annCHEM EYLFV7857-71-96 09:14:000.60[facility]annCHEM USIBP9875-71-00 09:14:56392Bdpptjtr HermannCHEM NXZPK3176-22-84 09:14:92631Rklkhtlj [facility]annCHEM EHUFQ1468-49-70 09:14:008.5 [facility]annCHE[facility] SQOQR2944-32-18 09:14:0013.3[facility]annCHEM PANEL 2019-01-25 09:14:0024[facility]annCHEM JNQWH8844-07-34 09:14:30635Mxurrenp HermannCHEM ZSTOF6958-02-89 09:14:0081[facility]annCHEM USGHE7628-56-46 09:14:002[facility]annCHEM UNKNL1137-56-72 09:14:003.3[facility]annCHEM GGKEP1846-91-30 09:14:000.60[facility]annCHEM UCXII9451-51-22 09:14:03416 [facility]annMOLECULAR YIEFYJPVQR6765-23-46 16:22:00Negative (01/23/19 11:22 AM)[facility]annMOLECULAR YZODZRDFVE2000-06-45 16:22:00Negative (01/23/19 11:22 AM)[facility]annCHEM VAEJZ3171-53-31 15:42:002.76[facility] HermannCHEM PANEL 2019-01-23 15:42:002.76[facility]annCHEM XSAFJ4286-95-16 12:32:000.9[facility]annCHEM VFDNB3559-75-91 12:32:000.9[facility]annCHEM LOCHD3474-08-44 10:50:002.0[facility]annCHEM OOVJP3630-34-87 10:50:32003Gruwojxc HermannCHEM OCFUR8252-49-51 10:50:0023[facility]annCHEM LFKLN7123-13-15 10:50:13086 [facility]annCHEM MCKFO8765-62-60 10:50:003.1[facility] HermannCHEM PANEL 2019-01-23 10:50:49541Zdslwhnr HermannCHEM MBVNP0986-32-14 10:50:005[facility]annCHEM CCIEH2674-33-74 10:50:000.50[facility]annCHEM DGGPK9788-83-35 10:50:007.8[facility]annCHEM LHTHX1752-41-59 10:50:0083[facility]annCHEM PEXLF8648-10-55 10:50:0010.1[facility] QkvwcwpENTINKXMXA8943-79-50 10:50:000.2 [facility] KakpuzaOWKDQLETGE8085-25-61 10:50:000.8[facility] HermannHEMATOLOGY 2019-01-23 10:50:005.5[facility] MimhmssXORSUAAXYC2627-56-45 10:50:002.2[facility] NbmkrwkKMFFWHVUAV2963-93-11 10:50:000.1[facility] QngrstsSVGRZPQPTO5889-74-21 10:50:0063.6[facility] TaexexpNQYKMEPNKO4517-66-86 10:50:008.9[facility] ZUAAZAEUEU8069-95-80 10:50:002.3[facility] JsicwbgNLIOPZALDR1363-02-92 10:50:00 Normal (01/23/19 5:50 AM)[facility] OrljgipOSHXKSQBNV0029-77-93 10:50:00Normal (01/23/19 5:50 AM)[facility] WxlpcrlVWRZPSCFST9509-04-24 10:50:0025.1[facility] LfremecKAXVDIDSLN3560-37-43 10:50:0013.1[facility] RnyrerhXUPKWJGLTZ6663-80-15 10:50:56063Rsjlunbx WlwpyqbWVGMTPGYUW3906-78-83 10:50:007.7[facility] TLLBSKZWCC2367-37-62 10:50:008.6[facility] MhzftjpOKTQRZLANS5530-60-27 10:50:00 10.0[facility] FmbcihgQRVGBFUAPI3509-38-95 10:50:0034.6[facility]annHEMATOLOGY 2019-01-23 10:50:0028.7[facility] RlubrobQIHTSQCHMZ6662-28-57 10:50:0087.8[facility] YglrhtlONCAOTIEPR5958-03-39 10:50:00 Test Item Value Reference Range Interpretation Comments MCH (test code = MCH) 30.4 pg 27.0-31.0 [facility] VcjpheuANNJSTBQDP0090-73-13 10:50:003.27[facility]annHEMATOLOGY 2019-01-23 10:50:46966Ltvcynfc EjosrisMSCJPWSRZR8439-20-72 10:50:007.7[facility] UdewcklQIZTKHBEKJ5276-83-63 10:50:008.6[facility] TpeumpvPLZBXKRZKA2754-90-18 10:50:0010.0[facility] RbnatgzKOFYJWKMDX8746-80-17 10:50:0034.6[facility] MSHXTFWOOM4917-29-98 10:50:0028.7[facility] UnsgmywPVXBLCVHEW8207-93-79 10:50:00 87.8[facility] HwafgrpPPEAKFVXUD7539-74-24 10:50:00 Test Item Value Reference Range Interpretation Comments MCH (test code = MCH) 30.4 pg 27.0-31.0 [facility] AnpbcwoRQJOFVEWUQ1318-10-18 10:50:003.27[facility] HermannCHEM PANEL 2019-01-23 10:50:002.0[facility] HermannCHEM SDXDD1974-54-32 10:50:61634Vyxzelui HermannCHEM OZEAX6470-24-92 10:50:0023[facility] HermannCHEM EVXEU6940-04-53 10:50:57696Yukqubiw [facility]annCHEM DWHWW0535-64-60 10:50:003.1[facility] HermannCHEM MARAJ3249-53-27 10:50:58559Qvnhgaiq [facility]annCHE[facility] RWMVE3140-57-55 10:50:005 [facility]annCHEM NSWKM9221-62-75 10:50:000.50[facility]annCHEM PANEL 2019-01-23 10:50:007.8[facility] HermannCHEM WINUN0181-85-90 10:50:0083[facility]annCHEM HHPBD3541-28-96 10:50:0010.1[facility] JkiqpcpBSGFHXPCXA3339-54-32 10:50:000.2[facility] OmjtagfSZVJTKXTLF5562-77-47 10:50:000.8[facility] ZUGFZYATAY3629-53-74 10:50:005.5[facility] XivrwndAHILFRXYNJ5533-72-45 10:50:002.2 [facility] ZlqwzlgDUCTWRBDHS5689-58-69 10:50:000.1[facility]annHEMATOLOGY 2019-01-23 10:50:0063.6[facility] QwnkvlbOPDOUEWRMK7434-80-96 10:50:008.9[facility] KwjwtccMOQBMZJFVP8080-12-71 10:50:002.3[facility] HuzhmfgQANUAYCHLS0860-46-46 10:50:00Normal (01/23/19 5:50 AM)[facility] AzofozeGKZMSYQVWE2901-32-77 10:50:00 Normal (01/23/19 5:50 AM)[facility] ZxfqkqjQPVFGEBBDA6710-02-20 10:50:0025.1[facility] FonffcqYASSPRTFFU1514-26-26 10:50:0013.1[facility] HermannCHEM OQTMX7837-92-78 11:32:002.4[facility] HermannCHEM OBXWH2447-23-73 11:32:002.4[facility] HermannCHEM UIBKS4480-92-87 09:04:003.0[facility]annCHEM ZNLLR0640-28-56 09:04:003.0 [facility]UR[facility] AND HWDXE9062-72-82 07:14:00 Test Item Value Reference Range Interpretation Comments UA Spec Grav (test code = UA Spec 1.014 1 Grav) [facility] RICTE2897-34-07 07:14:00 Test Item Value Reference Range Interpretation Comments UA pH (test code = UA pH) 6.0 1 5.0-8.0 [facility] SQJFZ4055-58-91 07:14:00Negative (01/22/19 2:14 AM) [facility] PMEQN9541-67-53 07:14:00Negative *NA*(01/22/19 2:14 AM) [facility] GGIEX0192-82-97 07:14:00Negative *NA*(01/22/19 2:14 AM) [facility] DMEYO6886-97-92 07:14:00Negative *NA*(01/22/19 2:14 AM) [facility] RGBHS4187-79-47 07:14:00Negative (01/22/19 2:14 AM) [facility] GMOQS8378-90-68 07:14:00Negative (01/22/19 2:14 AM) [facility] PWNFR2501-22-15 07:14:00Negative (01/22/19 2:14 AM) [facility] OAETF9659-60-20 07:14:00<1[facility] SFMOQ5794-94-61 07:14:0025[facility] TXZFU4949-02-58 07:14:002 [facility] VSSFX7344-57-00 07:14:00Light Yellow *NA*(01/22/19 2:14 AM)[facility] OISHM8118-90-41 07:14:00Clear (01/22/19 2:14 AM) [facility] OTYTT3762-12-08 07:14:00 Test Item Value Reference Range Interpretation Comments UA Spec Grav (test code = UA Spec 1.014 1 Grav) [facility] VAVDD6859-92-00 07:14:00 Test Item Value Reference Range Interpretation Comments UA pH (test code = UA pH) 6.0 1 5.0-8.0 [facility] VYUCE4972-10-63 07:14:00Negative (01/22/19 2:14 AM) [facility] ZNVFD4512-40-27 07:14:00Negative *NA*(01/22/19 2:14 AM) [facility] ZQHPV3132-44-17 07:14:00Negative *NA*(01/22/19 2:14 AM) [facility] LHDJQ9272-17-68 07:14:00Negative *NA*(01/22/19 2:14 AM) [facility] QTIWD1840-54-44 07:14:00Negative (01/22/19 2:14 AM) [facility] QWGNP3371-14-73 07:14:00Negative (01/22/19 2:14 AM) [facility] EICMD6318-16-19 07:14:00Negative (01/22/19 2:14 AM) [facility] QDTBV8909-92-08 07:14:00<1[facility] TKOMN8842-65-88 07:14:0025[facility] MJSPJ1538-99-09 07:14:002 [facility] KPJOI9406-97-95 07:14:00Light Yellow *NA*(01/22/19 2:14 AM)[facility] HEKTO7542-12-77 07:14:00Clear (01/22/19 2:14 AM) [facility] KplyukfNOSBY9820-72-80 05:16:000.90[facility] ZieyhkfOFSQZ3191-78-97 05:16:000.90[facility] LutratnVKVXMBJDIV6037-85-85 05:01:39125Pfmvqfdw [place] RLVIMKNPRL1331-52-53 05:01:007.3[facility] YqsasosVBDNVTAGFN0752-86-64 05:01:00 14.0[facility] VcdasaxIOBOWCYYZJ7075-87-62 05:01:004.85[facility]annHEMATOLOGY 2019-01-22 05:01:0042.7[facility] MmcixpqKEYTIOTXKV6165-20-06 05:01:00 Test Item Value Reference Range Interpretation Comments MCH (test code = MCH) 29.0 pg 27.0-31.0 [facility] BaubzcfVXZYKBGPOY0191-92-45 05:01:0088.2[facility]annHEMATOLOGY 2019-01-22 05:01:00 Test Item Value Reference Range Interpretation Comments INR (test code = INR) 0.96 1 0.85-1.17 [facility] KxcpcnvBTQIUBJHTN2863-80-61 05:01:00 Test Item Value Reference Range Interpretation Comments PT (test code = PT) 12.6 s 12.0-14.7 [facility] YngpkcgPULNGIBBCF9323-89-58 05:01:00 Test Item Value Reference Range Interpretation Comments PTT (test code = PTT) 25.9 s 22.9-35.8 [facility] QXRJGQM4685-01-92 05:01:00Negative (01/22/19 12:01 AM) [facility]annCARDIAC VAANVOC8734-06-80 05:01:00<0.02[facility] [place] CARDIAC PAXRYDG4751-38-27 05:01:0049[facility] HermannCHEM JIFZN4110-83-95 05:01:000.6[facility] HermannCHEM XAQBJ2465-65-93 05:01:08639Dgmidshi HermannCHEM EKKUC6500-82-94 05:01:004.0[facility]annCHEM WXEMZ0407-69-55 05:01:0017 [facility]annCHEM WEHSE4407-01-01 05:01:0025[facility]annCHEM PANEL 2019-01-22 05:01:008.1[facility]CHE[facility] AFHKF9857-50-20 05:01:00 Test Item Value Reference Range Interpretation Comments B/C Ratio (test code = B/C Ratio) 20 1 6-25 [facility] BVLFQ9836-34-31 05:01:00 Test Item Value Reference Range Interpretation Comments A/G Ratio (test code = A/G Ratio) 1.0 1 0.7-1.6 [facility] XKMAM9473-47-60 05:01:004.1[facility]annCHEM PANEL 2019-01-22 05:01:006.90[facility] JizsfsaBEOZOSHJVONID4917-84-26 05:01:00Negative *NA*(01/22/19 12:01 AM)[facility] PtjedeyGPHDEGXFRP2144-22-62 05:01:000.1[facility] EwviuqaUVDUNJKIJH2986-14-83 05:01:000.7[facility] JoerqulTBZWXETLGL3955-70-47 05:01:000.0[facility] YuokwwbXBBQCNKWNJ3361-20-40 05:01:000.0[facility] ZHDHUSLBMA3932-77-12 05:01:000.9[facility] OrqaqxmSENSKYVXKG6121-69-22 05:01:008.6 [facility] DprnidnZHQGJGVMYE8329-42-71 05:01:000.6[facility]annHEMATOLOGY 2019-01-22 05:01:0086.5[facility] HbzjywqJFWZADEASD6421-59-26 05:01:005.7[facility] TgyqweyMIVIYRDRKM1757-67-90 05:01:006.9[facility] AumketrUMDDTJATGT2006-67-30 05:01:009.9[facility] KyehvptUJREWUQYLA8633-55-62 05:01:0032.8[facility] QLKFVDSTLK9071-76-92 05:01:0013.6[facility] JvlckwwQMVPPGOJLO5830-46-06 05:01:00 443[facility] WwzubhqBPXOGLHBFO1022-37-39 05:01:007.3[facility]annHEMATOLOGY 2019-01-22 05:01:0014.0[facility] YsjzugnBIOFHALEEO8173-87-47 05:01:004.85[facility] YuqnsejPDVKKZYGRQ9840-73-78 05:01:0042.7[facility] TibrswpWLKTGYQFLM5751-12-29 05:01:00 Test Item Value Reference Range Interpretation Comments MCH (test code = MCH) 29.0 pg 27.0-31.0 [facility] XpkygulOVYRNLXUTM7281-31-77 05:01:0088.2[facility]annHEMATOLOGY 2019-01-22 05:01:00 Test Item Value Reference Range Interpretation Comments INR (test code = INR) 0.96 1 0.85-1.17 [facility] QqpzqrgHYDJCPBLIG0365-55-09 05:01:00 Test Item Value Reference Range Interpretation Comments PT (test code = PT) 12.6 s 12.0-14.7 [facility] PoqiuzwXMWNGQATRZ6067-81-59 05:01:00 Test Item Value Reference Range Interpretation Comments PTT (test code = PTT) 25.9 s 22.9-35.8 [facility]44 05:01:00Negative (01/22/19 12:01 AM) [facility] HermannCARDIAC HXLNJMA2320-04-90 05:01:00<0.02[facility] CARDIAC FURDNNG2222-62-08 05:01:0049[facility]annCHEM AJYOP6676-67-79 05:01:000.6[facility]annCHEM NQBWY4747-28-69 05:01:55623Fcimiuge HermannCHEM UBFBA1064-85-81 05:01:004.0[facility]annCHE[facility] XDGIG6410-25-00 05:01:0017 [facility] CMVKC8741-21-73 05:01:0025[facility]annCHEM PANEL 2019-01-22 05:01:008.1[facility]annCHE[facility] JRZFD2372-54-47 05:01:00 Test Item Value Reference Range Interpretation Comments B/C Ratio (test code = B/C Ratio) 20 1 6-25 [facility] KMHTW0842-38-38 05:01:00 Test Item Value Reference Range Interpretation Comments A/G Ratio (test code = A/G Ratio) 1.0 1 0.7-1.6 [facility]annCHE[facility] ORWYN0201-43-35 05:01:004.1[facility]annCHEM PANEL 2019-01-22 05:01:006.90[facility] CaipdhyREKUBRWBHKYOP0098-84-59 05:01:00Negative *NA*(01/22/19 12:01 AM)[facility] WqlgetqHANCTTKGXW0154-34-46 05:01:000.1[facility] BjpiahvQMFLBZTXDJ7298-93-37 05:01:000.7[facility] OgifeabQFGVMIODJB8417-11-05 05:01:000.0[facility] RcqjhknMQGIBQPWAP9197-89-35 05:01:000.0[facility] YUJLTZDCYT2169-16-74 05:01:000.9[facility] EerududAUXVUNDQYI7890-54-93 05:01:008.6 [facility] JxtpwfjBTTNTOOMTC4596-55-20 05:01:000.6[facility]annHEMATOLOGY 2019-01-22 05:01:0086.5[facility] VysxhbqEDWNHEZNLM4807-65-98 05:01:005.7[facility] PkhargbTVUEBGMDFN8063-79-81 05:01:006.9[facility] XmwlghbQMKUNEOKPT3197-81-97 05:01:009.9[facility] NxngjmvOZZZHAJFPY4484-25-58 05:01:0032.8[facility] RZDZZDJVAF4605-75-22 05:01:0013.6[facility] TyjpqumYHG3Q4942-85-71 14:36:00 Test Item Value Reference Range Interpretation [...] 0.00-0.01 N code = ETOHU) [facility] Izqpl1698-60-51 14:36:00 Test Item Value Reference Range Interpretation [...] the National [facility],http :[email or web address] ep.nih.gov Urinalysis [id number] 14:32:00 Test Item Value Reference Range Interpretation Comments Color (test code = COLOR) Yellow Yellow,Straw,Pl N yellow Clarity (test code = Clear Clear N CLAR) Specific [place] (test 1.024 1.001-1.035 N code = SPGR) [...] code = Few /HPF BACT) CBC with [id number] 14:21:00 Test Item Value Reference Range Interpretation [...] code = ALYMPH) 3.0 K/cumm 0.5-4.6 N [place] Abs (test code = AMONO) 0.5 K/cumm 0.0-1.2 N Eos Abs (test code = AEOS) 0.19 K/cumm 0.00-0.74 N Baso Abs (test code = ABASO) 0.1 K/cumm 0.00-0.21 N
[2021-09-17 18:01] LABS: Absolute Lymphocytes (CBC) 2.1 K/uL (0.7-4.9); Basophils % 1.1 % (0-1.3); Lymphocytes % 32.2 % (15.3-44.8); MPV 7.6 fL (7.6-11.3); RBC Red Blood Cell Count 4.48 M/uL (3.86-4.86)
[2021-09-17 18:12] LABS: Protime INR 0.96
[2021-09-17 18:27] LABS: BUN Blood Urea Nitrogen 15 mg/dL (7-18); Bicarbonate 24 mmol/L (21-32); Glucose Level 99 mg/dL (74-106); Magnesium 2.3 mg/dL (1.8-2.4); Potassium 3.5 mmol/L (3.5-5.1); Sodium Level 141 mmol/L (136-145); Troponin (Emerg Dept Use Only) < 0.02 ng/mL (0.0-0.045)
--- NOTE | 2021-09-17 18:38 | RAD REPORT ---
EXAM DESCRIPTION: RAD - Chest Single View - 09/17/2021 5:56 pm CLINICAL HISTORY: CHEST PAIN Chest pain. COMPARISON: Chest Single View dated 09/13/2021; Chest Single View dated 09/08/2021; Chest Single Vie w dated 09/04/2021; Chest Single View dated 08/29/2021 FINDINGS: Portable technique limits examination quality. The lungs are grossly clear. The heart is normal in size. No displaced fractures. IMPRESSION: No acute intrathoracic process suspected.
--- NOTE | 2021-09-17 18:46 | ER ---
Nurse's Notes [facility] Name: Tiffany Quinn Age: 51 yrs Sex: Female : 1970 Arrival Date: 09/17/2021 Time: 15:07 Bed 5 Private MD: Diagnosis: Chest pain, unspecified Presentation: 09/17 15:19 Chief complaint: Patient states: I feel like I am having chest pain. It started this ld1 morning before I went to the doctor, started feeling tight. Coronavirus screen: At this time, the client does not indicate any symptoms associated with coronavirus-19. Ebola Screen: No symptoms or risks identified at this time. Initial Sepsis Screen: Does the patient meet any 2 criteria? No. Patient's initial sepsis screen is negative. Does the patient have a suspected source of infection? No. Patient's initial sepsis screen is negative. Risk Assessment: Do you want to hurt yourself or someone else? Patient reports no desire to harm self or others. Onset of symptoms was September 17, 2021. 15:19 Method Of Arrival: Ambulatory ld1 15:19 Acuity: MANUEL 3 ld1 Triage Assessment: 15:21 General: Appears in no apparent distress. comfortable, Behavior is calm, cooperative, ld1 appropriate for age. Pain: Complains of pain in left breast Pain does not radiate. Pain currently is 2 out of 10 on a pain scale. Quality of pain is described as throbbing, Pain began suddenly, Is continuous. EENT: No signs and/or symptoms were reported regarding the EENT system. Neuro: Level of Consciousness is awake, alert, obeys commands, Oriented to person, place, time, situation, Appropriate for age. Cardiovascular: Capillary refill < 3 seconds Patient's skin is warm and dry. Rhythm is sinus tachycardia. Respiratory: Airway is patent Respiratory effort is even, unlabored, Respiratory pattern is regular, symmetrical. GI: Abdomen is round non-distended. : No signs and/or symptoms were reported regarding the genitourinary system. Derm: No signs and/or symptoms reported regarding the dermatologic system. Musculoskeletal: Reports pain in chest. 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 - Social history:: Smoking status: Patient denies any tobacco usage or history of. Patient uses street drugs, Patient/guardian denies using alcohol. Screenin:52 Abuse screen: Denies threats or abuse. Nutritional screening: No deficits noted. jh6 Tuberculosis screening: No symptoms or risk factors identified. Fall Risk None identified. Assessment: 17:50 General: Appears comfortable, unkempt, Behavior is calm, cooperative. Pain: Denies jh6 pain. Cardiovascular: No deficits noted. Denies chest pain, Pt reporting pain to chest earlier this am and states that she might be stressed. States that she does not currently have chest pain. Vital Signs: 15:19 BP 140 / 120; Pulse 106; Resp 22; Temp 98.1(O); Pulse Ox 100% on R/A; Weight 70.76 kg; ld1 Height 5 ft. 3 in. (160.02 cm); Pain 2/10; 17:35 BP 133 / 98; Pulse 98; Resp 20; Pulse Ox 99% on R/A; jh6 15:19 Body Mass Index 27.63 (70.76 kg, 160.02 cm) ld1 ED Course: 15:07 Patient arrived in ED. ds1 15:21 Triage completed. ld1 15:21 Arm band placed on right wrist. EKG completed in triage. Results shown to MD. ld1 16:45 Angelita Jain, JIGNA is Primary Nurse. tw2 16:46 Guanako Palomino PA is PHCP. jr8 16:46 Manuel Ward MD is Attending Physician. jr8 17:20 gambling monitor on. Pulse ox on. jh6 17:20 Bed in low position. Call light in reach. Side rails up X 1. jh6 17:52 No provider procedures requiring assistance completed. Inserted saline lock: 24 gauge jh6 in right hand, using aseptic technique. Patient maintains SpO2 saturation greater than 95% on room air. 17:56 XRAY Chest (1 view) In Process Unspecified. EDMS 19:01 IV discontinued, intact, bleeding controlled, No redness/swelling at site. jh6 Administered Medications: No medications were administered Outcome: 18:46 Discharge ordered by MD. brambila 19:01 Discharged to home [facility] 19:01 Condition: good 19:01 Discharge instructions given to patient, Instructed on discharge instructions, follow up and referral plans. 19:02 Patient left the ED. 6 Signatures: Dispatcher [employer] EDUT Neelima Rivera ds1 Guanako Palomino PA PA jr8 Angelita Jain, RN RN tw2 Radha Paez, RN RN ld1 Tiffany Chavez, RN RN jh6
--- NOTE | 2021-09-17 18:46 | EDPHYS ---
Physician Documentation [facility] Name: Tiffany Quinn Age: 51 yrs Sex: Female : 1970 Arrival Date: 09/17/2021 Time: 15:07 Bed 5 Private MD: ED Physician Manuel Ward HPI: 09/17 17:46 This 51 yrs old Female presents to ER via Ambulatory with complaints of Chest Pain. jr8 17:46 A 51-year-old female patient that presented to the emergency room complaints of chest jr8 pain. Recently saw her PCP today for medication adjustment for her anxiety and continued bipolar disorder. Patient stated that she just felt very overwhelmed and started to have chest pain wanted to be reevaluated today. Patient has been here multiple times over the past week for similar symptoms.. 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 - Social history:: Smoking status: Patient denies any tobacco usage or history of. Patient uses street drugs, Patient/guardian denies using alcohol. ROS: 17:46 Eyes: Negative for injury, pain, redness, and discharge, ENT: Negative for injury, jr8 pain, and discharge, Neck: Negative for injury, pain, and swelling, Respiratory: Negative for shortness of breath, cough, wheezing, and pleuritic chest pain, Abdomen/GI: Negative for abdominal pain, nausea, vomiting, diarrhea, and constipation, Back: Negative for injury and pain, MS/Extremity: Negative for injury and deformity, Skin: Negative for injury, rash, and discoloration, Neuro: Negative for headache, weakness, numbness, tingling, and seizure. 17:46 Cardiovascular: Positive for chest pain, Negative for edema, orthopnea, palpitations, paroxysmal nocturnal dyspnea. Exam: 17:46 Constitutional: This is a well developed, well nourished patient who is awake, alert, jr8 and in no acute distress. Cardiovascular: Regular rate and rhythm with a normal S1 and S2. No gallops, murmurs, or rubs. Normal PMI, no JVD. No pulse deficits. Respiratory: Lungs have equal breath sounds bilaterally, clear to auscultation and percussion. No rales, rhonchi or wheezes noted. No increased work of breathing, no retractions or nasal flaring. Abdomen/GI: Soft, non-tender, with normal bowel sounds. No distension or tympany. No guarding or rebound. No evidence of tenderness throughout. Skin: Warm, dry with normal turgor. Normal color with no rashes, no lesions, and no evidence of cellulitis. MS/ Extremity: Pulses equal, no cyanosis. Neurovascular intact. Full, normal range of motion. Neuro: Awake and alert, GCS 15, oriented to person, place, time, and situation. Cranial nerves II-XII grossly intact. Motor strength 5/5 in all extremities. Sensory grossly intact. Cerebellar exam normal. Normal gait. Vital Signs: 15:19 BP 140 / 120; Pulse 106; Resp 22; Temp 98.1(O); Pulse Ox 100% on R/A; Weight 70.76 kg; ld1 Height 5 ft. 3 in. (160.02 cm); Pain 2/10; 17:35 BP 133 / 98; Pulse 98; Resp 20; Pulse Ox 99% on R/A; jh6 15:19 Body Mass Index 27.63 (70.76 kg, 160.02 cm) ld1 MDM: 16:46 Patient medically screened. jr8 18:40 Data reviewed: vital signs, nurses notes, lab test result(s), EKG, radiologic studies, jr8 plain films. Data interpreted: Pulse oximetry: on room air is 100 %. Interpretation: normal. Counseling: I had a detailed discussion with the patient and/or guardian regarding: the historical points, exam findings, and any diagnostic results supporting the discharge/admit diagnosis, lab results, radiology results, the need for outpatient follow up, a family practitioner, to return to the emergency department if symptoms worsen or persist or if there are any questions or concerns that arise at home. 18:40 ED course: No acute findings on imaging, EKG, blood work. Will discharge patient home jr8 to continue to follow-up.. 09/17 17:01 Order name: Basic Metabolic Panel; Complete Time: 18:40 [facility] 09/17 17:01 Order name: CBC with Diff; Complete Time: 18:28 [facility] 09/17 17:01 Order name: Magnesium; Complete Time: 18:40 [facility] 09/17 17:01 Order name: PT-INR; Complete Time: 18:28 [facility] 09/17 17:01 Order name: Troponin (emerg Dept Use Only); Complete Time: 18:40 [facility] 09/17 17:01 Order name: XRAY Chest (1 view); Complete Time: 18:40 [facility] 09/17 17:01 Order name: EKG; Complete Time: 17:02 [facility] 09/17 17:01 Order name: Cardiac monitoring [facility] 09/17 17:01 Order name: EKG - Nurse/Tech [facility] 09/17 17:01 Order name: IV Saline Lock; Complete Time: 17:50 [facility] 09/17 17:01 Order name: Labs collected and sent; Complete Time: 17:50 [facility] 09/17 17:01 Order name: O2 Per Protocol [facility] 09/17 17:01 Order name: O2 Sat Monitoring [facility] Administered Medications: No medications were administered Disposition: 19:04 Co-signature as Attending Physician, Manuel Ward MD. rn Disposition Summary: 09/17/21 18:46 Discharge Ordered Location: Home jr Problem: new jr8 Symptoms: have improved jr8 Condition: Stable jr8 Diagnosis - Chest pain, unspecified jr8 Followup: jr8 - With: Private Physician - When: 1 - 2 days - Reason: Recheck today's complaints, Continuance of care, Re-evaluation by your physician Discharge Instructions: - Discharge Summary Sheet jr8 - Nonspecific Chest Pain, Adult jr8 Forms: - Medication Reconciliation Form jr8 - Thank You Letter jr8 - Antibiotic Education jr8 - Prescription Opioid Use jr8 Signatures: Dispatcher [employer] EDMS Manuel Ward MD MD rn Roszak, Josh, PA PA jr8 Radha Paez RN RN ld1
[2021-09-17 19:28] VITALS: TEMP 98.1
[2021-09-17 19:32] VITALS: BP 133/98; O2SAT 99
== END 2021-09-17 19:02 | disposition home or self-care (01) ==
LOC: ER 15:05
DX: R07.9 Chest pain, unspecified (principal); F31.9 Bipolar disorder, unspecified; Z98.82 Breast implant status; Z88.5 Allergy status to narcotic agent; Z88.8 Allergy status to other drugs, medicaments and biological substances
CPT/HCPCS: 36415; 71045; 80048; 83735; 84484; 85025; 85610; 93005; 99284

== ENCOUNTER 2021-09-18 16:00 | Emergency (ER) | payer OTHER ==
--- OUTSIDE RECORDS SUMMARY | 2021-09-18 16:06 | XMS REPORT | Continuity of Care Document ---
:1970 Author Organization [facility] t Address [address] [place] [address] Care Team Providers Name Role Phone UNKNOWN [...] Policy Number Effective Date Expiration Date S [facility] OF [place] - [id number] 2020 [employer] 00:00:00 (MEDICARE REPLACEMENT/ADVANT AGE - HMO) Problems Condition Condition Condition Status Onset Resolution Last Treating Co mments Source Name Details Category Date Date Treatment Clinician Date LOW PB Diagnosis Active 2019-01-22 Mem oria 01-21 01:52:00 l LOW PB 00:00: Yonis 00 Active 01/21/2019 [place] INFECTIOUS Diagnosis Active 2019-02-06 Memoria GASTROENTE 01-21 08:58:00 l RITIS AND 00:00: [place] COLITIS INFECTIOUS 00 GASTROENTE RITIS AND COLITIS Active 01/21/2019 [facility] Irregular Irregular Disease Active Uni vers menstrual menstrual 8-15 ity of cycle cycle 00:00: [address] Skin Skin Disease Active Univers lesion lesion 8-15 ity of 00:00: [address] Psychiatri Psychiatri Disease Active U nivers c disorder c disorder 8-15 it y of 00:00: [address] Well woman Well woman Disease Active U nivers exam with exam with 8-15 ity of routine routine 00:00: [place] gynecologi gynecologi 00 Me dical nicky exam nicky exam Branch INFECTIOUS Diagnosis Active 2019-02-06 Memoria GASTROENTE 08:58:00 l RITIS AND Yonis COLITIS, INFECTIOUS GASTROENTE RITIS AND COLITIS, Active [facility] Allergies, Adverse Reactions, Alerts Allergy Allergy Status Severity Reaction(s) Onset Inactive Treating Comm ents Source Name Type Date Date Clinician NO KNOWN Drug Active Univers ALLERGIE Class ity of S [facility] Phenerga Phenerga Active [place] Social History Social Habit Start Date Stop Date Quantity Comments Source History of Cigarette Smoker Universi ty of tobacco use [facility] Tobacco Comment 2-3 cigs a day [facility] Exposure to Not sure [place] of SARS-CoV-2 [facility] (event) [place] Tobacco use and 2016-06-08 2016-06-08 [facility] 00:00:00 00:00:00 [facility] Alcohol intake 2016-06-08 2016-06-08 0 /d University of 00:00:00 00:00:00 [facility] Sex Assigned At [birth year] Universit y of 00:00:00 00:00:00 [facility] Smoking Status Start Date Stop Date Source Social History 2019-01-22 05:00:12 [facility] Her urena Current some day smoker 2016-06-08 00:00:00 [facility] Medications Ordered Filled Start Stop Current Ordering Indication Dosage Frequency Signature Comments Components Source Medication Medication Date Date Medication? Clinician (SIG) Name Name cefTRIAXone 2020-10- No 1000mg 1,000 mg, Univers (ROCEPHIN) 17 11-17 IV ity of 1,000 mg in 08:30: 08:01 [place], [place] NaCl 0.9% 00 :00 ONCE, 1 [...] 09/09/21 at 2330, RANDA amoxicillin 2020-10 Yes [id number] 500mg Take 1 Univers 500 mg 11-10 capsule by ity of capsule 00:00: mouth 3 [place] 00 (three) Medical times Branch daily. ondansetron 2019-10- No 4mg 4 mg, [facility] ers (ZOFRAN-ODT 12-01 Oral, ity of ) 15:15: 14:16 ONCE, 1 [place] disintegrat 00 :00 dose, Mon Med ical ing tablet 09/30/20 at [facility] 4 mg 0915, Routine ondansetron 2019-10- No 4mg 4 mg, [facility] ers (ZOFRAN-ODT 12-01- Oral, ity of ) 14:30: 13:32 ONCE, 1 [place] disintegrat 00 :00 dose, Mon Med ical ing tablet 09/30/20 at [facility] nc 4 mg 0830, Routine ondansetron 2019-10 Yes [id number] 4mg Take 1 Univers 4 mg 2-07 tablet by ity of disintegrat 00:00: mouth [place] ing tablet 00 every 8 Medica l (eight) Branch hours as needed for Nausea and Vomiting (N/V). ondansetron 2019-10 Yes [id number] 4mg Take 1 Univers 4 mg 2-07 tablet by ity of disintegrat 00:00: mouth [place] ing tablet 00 every 8 Medica l (eight) Branch hours as needed for Nausea and Vomiting (N/V). ondansetron 2019-10 Yes [id number] 4mg Take 1 Univers 4 mg 2-07 tablet by ity of disintegrat 00:00: mouth [place] ing tablet 00 every 8 Medica l (eight) Branch hours as needed for Nausea and Vomiting (N/V). ondansetron 2019-10 Yes [id number] 4mg Take 1 Univers 4 mg 2-07 tablet by ity of disintegrat 00:00: mouth [place] ing tablet 00 every 8 Medica l (eight) Branch hours as needed for Nausea and Vomiting (N/V). ciprofloxac 2019 Yes 500 mg = 1 Memoria in 500 mg 4-04 tab, PO, l oral tablet 17:35: [id number], X Yonis 00 4 day, # 8 [...] 4-04 tab, PO, l oral tablet 17:35: [id number], X Ponce 00 4 day, # 8 tab, 0 [...] s with feeding tube less than 14 Nepalese (Dobhoff, J-tube etc) and pediatric and patients. Potassium No Notes: Memori a Chloride 4-03 (Same as: l 13:26: K-Dur 20) Ponce "Do Not Crush" Give with food and full glass of water For patients unable to swallow tablet, dissolve in one half glass of water. Allow about 2 minutes for the tablets to disintegra te. Stir before giving to prepare slurry and administer . Please exclude Patient s with feeding tube less than 14 [place] (Dobhoff, J-tube etc) and pediatric and patients. Strattera No 0.5 mg/kg, Me moria 01-24 Route: PO, l 14:00: QAM, Yonis Dosing Weight 75, kg, Start date: 01/24/19 9:00:00 CDT, Duration: 30 day, Stop date: 02/22/19 9:00:00 CDT Strattera 0 No 0.5 mg/kg, Me moria 402 Route: PO, l 14:00: QAM, Ponce 00 Dosing Weight 75, kg, Start date: [...] Memoria 4- (Same as: l 15:00: Flagyl) Ponce 00 Take with food/ avoid alcohol Cipro No Notes: February Memori a 4- interfere l 15:00: w/enteral Ponce 00 feedings - Take 1 hr before [...] PO, ONCE, l mEq oral 14:20: 0 [place] tablet, 00 Refill(s) extended release Metronidazo No 500 mg, Mem oria le 500 MG 4-01 PO, l Oral Tablet 14:20: [id number], 0 H ermann [Flagyl] 00 Refill(s) Ciprofloxac No 500 mg, Mem oria in 500 MG 01 PO, l Oral Tablet 14:20: [id number], 0 [place] [Cipro] 00 Refill(s) potassium Yes 40 mEq, Memor ia chloride 20 -01 PO, ONCE, l mEq oral 14:20: 0 [place] tablet, 00 Refill(s) extended release Metronidazo No 500 mg, Mem oria le 500 MG 4-01 PO, l Oral Tablet 14:20: [id number], 0 H ermann [Flagyl] 00 Refill(s) Ciprofloxac No 500 mg, Mem oria in 500 MG 4-01 PO, l Oral Tablet 14:20: [id number], 0 Yonis [Cipro] 00 Refill(s) Potassium No [...] s with feeding tube less than 14 [place]alese (Dobhoff, J-tube etc) and pediatric and patients. [...] s with feeding tube less than 14 [place] (Dobhoff, J-tube etc) and pediatric and patients. [...] tab, PO, l Tablet 21:08: BID, 0 Ponce [Risperdal] 00 Refill(s) Strattera Yes 0.5 mg/kg, [...] tab, PO, l Tablet 21:08: BID, 0 [place] [Risperdal] 00 Refill(s) Zosyn No Notes: Memoria [...] oria 3-31 to exceed l 15:03: 400mg/day. Ponce 00 (Same As: Ultram) Tramadol No Notes: [...] 01-22 Route: IM, l 09:47: Drug form: Ponce 00 PDR/INJ, PRN, Dosing Weight 75.994, kg, [...] 01-22 Route: IM, l 09:47: Drug form: P[place] PDR/INJ, PRN, Dosing Weight 75.994, kg, PRN Blood Glucose Results, Start date: 01/22/19 4:47:00 CDT, Duration: 30 day, Stop date: 02/21/19 4:46:00 CDT Dextrose 2018- No 12.5 gm, Memor ia 50% Syringe 3-31 25 mL, l 09:47: Route: Ponce 00 IVP, Drug Form: INJ, Dosing Weight [...] moria IV 3-31 1,000 l 08:52: ml/hr, Ponce 00 Infuse Over: 1 hr, Route: IV, [...] 0.9% 3-31 Same as: l 04:52: BD Ponce Posiflush Sterile NS (Bolus) No 1,000 mL, Me moria IV 3-31 1,000 l 04:51: ml/hr, Ponce 00 Infuse Over: 1 hr, Route: IV, 1,000, Drug form: INJ, ONCE, Priority: STAT, Dosing Weight 75.994 kg, Start date: 01/21/19 23:51:00 CDT, Stop date: 01/21/19 23:51:00 CDT NS (Bolus) No 1,000 mL, Me moria IV 01-22 1,000 l 04:51: ml/hr, Ponce 00 Infuse Over: 1 hr, Route: IV, [...] HYDROBROMID 8-15 mouth. ity of E 19:02: [place] (CITALOPRAM 27 Medical ORAL) Branch ibuprofen 2016-0 Yes 200mg Take 200 Uni vers (ADVIL) 200 8-15 mg by ity of mg tablet 14:02: mouth [place] [address] every 6 Medical (six) Branch hours as needed. CLONAZEPAM 2016-0 Yes Take by Uni vers (KLONOPIN 8-15 mouth. ity of ORAL) 14:02: [address] Branch CITALOPRAM 2016-0 Yes Take by Uni vers HYDROBROMID 8-15 mouth. ity of E 14:02: [place] (CITALOPRAM 27 Medical ORAL) Branch ibuprofen 2016-0 Yes 200mg Take 200 Uni vers (ADVIL) 200 8-15 mg by ity of mg tablet 14:02: mouth [place] [address] every 6 Medical (six) Branch hours as needed. CLONAZEPAM 2016-0 Yes Take by Uni vers (KLONOPIN 8-15 mouth. ity of ORAL) 14:02: [address] Branch CITALOPRAM 2016-0 Yes Take by Uni vers HYDROBROMID 8-15 mouth. ity of E 14:02: [place] (CITALOPRAM 27 Medical ORAL) Branch ibuprofen 2016-0 Yes 200mg Take 200 Uni vers (ADVIL) 200 8-15 mg by ity of mg tablet 14:02: mouth [place] [address] every 6 Medical (six) Branch hours as needed. CLONAZEPAM 2016-0 Yes Take by Uni vers (KLONOPIN 8-15 mouth. ity of ORAL) 14:02: [place] [address] Medical Branch CITALOPRAM 2016-0 Yes Take by Uni vers HYDROBROMID 8-15 mouth. ity of E 14:02: [place] (CITALOPRAM 27 Medical ORAL) Branch misoprostol 2016-0 [...] H it y of en-caff 00:00: PRN. [place] (ESGIC) 00 Medical 50-325-40 Branch mg tablet butalbital- 2015-0 Yes TK 1 TO 2 U nivers acetaminoph 8-01 T PO Q 8 H it y of en-caff 00:00: PRN. [place] (ESGIC) 00 Medical 50-325-40 Branch mg tablet butalbital- 2015-0 Yes TK 1 TO 2 U nivers acetaminoph 8-01 T PO Q 8 H it y of en-caff 00:00: PRN. [place] (ESGIC) 00 Medical 50-325-40 Branch mg tablet butalbital- 2016-0 Yes TK 1 TO 2 U nivers acetaminoph 8-01 T PO Q 8 H it y of en-caff 00:00: PRN. [place] (ESGIC) 00 Medical 50-325-40 Branch mg tablet dextroamphe 0 Yes TK 1 T PO U nivers tamine-amph 7-20 BID. ity of etamine 00:00: [place] (ADDERALL) 00 Medical 20 mg Branch tablet dextroamphe Yes TK 1 T PO U nivers tamine-amph 7-20 BID. ity of etamine 00:00: [place] (ADDERALL) 00 Medical 20 mg Branch tablet dextroamphe Yes TK 1 T PO U nivers tamine-amph 7-20 BID. ity of etamine 00:00: [place] (ADDERALL) 00 Medical 20 mg Branch tablet [...] 2021-09-10 08:01:00 138 mm[Hg] Univer sity of [facility] Diastolic blood 2021-09-10 08:01:00 97 mm[Hg] Unive rsity of [facility] Heart rate 2021-09-10 08:01:00 87 /min [facility] Respiratory rate 2021-09-10 08:01:00 20 /min [facility] [place] [facility] Oxygen saturation in 2021-09-10 08:01:00 98 /min University of Arterial blood by [place] [employer] [facility] Pulse oximetry Branch Body temperature 2021-09-10 04:28:51 37.17 Ruthann [facility] [place] [facility] Body height 2021-09-10 04:26:00 154.9 cm [facility] Body weight 2021-09-10 04:26:00 81.647 kg [facility] BMI 2021-09-10 04:26:00 34.01 kg/m2 [facility] Systolic blood 2021-09-09 20:06:00 150 mm[Hg] Univer sity of [facility] Diastolic blood 2021-09-09 20:06:00 89 mm[Hg] Unive rsity of [facility] Heart rate 2021-09-09 20:06:00 108 /min [facility] Body temperature 2021-09-09 20:06:00 37.22 Ruthann [facility] [place] [facility] Respiratory rate 2021-09-09 20:06:00 18 /min Univ [facility] [place] [facility] Oxygen saturation in 2021-09-09 20:06:00 99 /min University of Arterial blood by [employer] nicky Pulse oximetry Branch Body weight 2021-09-09 20:05:00 81.647 kg Universi ty of [place] [facility] BMI 2021-09-09 20:05:00 32.40 kg/m2 Universi ty of [place] [facility] Systolic blood 2020-09-30 14:00:00 126 mm[Hg] Univer sity of pressure [place] [facility] Diastolic blood 2020-09-30 14:00:00 84 mm[Hg] Unive rsity of pressure [place] [facility] Heart rate 2020-09-30 14:00:00 79 /min Universi ty of [place] [facility] Oxygen saturation in 2020-09-30 14:00:00 98 /min University of Arterial blood by [facility] nicky Pulse oximetry Branch Body temperature 2020-09-30 13:26:00 37.22 Ruthann Univ ersity of [place] [facility] Respiratory rate 2020-09-30 13:26:00 16 /min Univ ersity of [place] [facility] Body weight 2020-09-30 13:26:00 72.576 kg Universi ty of [place] [facility] BMI 2020-09-30 13:26:00 28.80 kg/m2 Universi ty [facility] [place] [facility] Systolic blood 2020-09-30 14:00:00 126 mm[Hg] Univer sity of pressure [place] [facility] Diastolic blood 2020-09-30 14:00:00 84 mm[Hg] Unive rsity of pressure [place] [facility] Heart rate 2020-09-30 14:00:00 79 /min Universi ty of [place] [facility] Oxygen saturation in 2020-09-30 14:00:00 98 /min University of Arterial blood by [facility] nicky Pulse oximetry Branch Body temperature 2020-09-30 13:26:00 37.22 Ruthann Univ ersity of [place] [facility] Respiratory rate 2020-09-30 13:26:00 16 /min Univ ersity of [place] [facility] Body weight 2020-09-30 13:26:00 72.576 kg Universi ty [facility] [place] [facility] BMI 2020-09-30 13:26:00 28.80 kg/m2 Universi ty [facility] [place] [facility] Temperature Oral (F) 2019-01-28 01:16:00 98.6 F [facility] Yonis Systolic (mm Hg) 2019-01-28 01:16:00 Estrada rial [place] Diastolic (mm Hg) 2019-01-28 01:16:00 Mem orial [place] Heart Rate 2019-01-28 01:16:00 [facility] Yonis Respitory Rate 2019-01-28 01:16:00 Memori al [place] Systolic (mm Hg) 2019-01-27 20:42:00 Estrada rial [place] Diastolic (mm Hg) 2019-01-27 20:42:00 Mem orial Yonis Heart Rate 2019-01-27 20:42:00 [facility] [place] Respitory Rate 2019-01-27 20:42:00 Memori al P[place] Temperature Oral (F) 2019-01-27 20:42:00 98.5 F [facility] [place] Systolic (mm Hg) 2019-01-27 17:00:00 Estrada rial Yonis Diastolic (mm Hg) 2019-01-27 17:00:00 Mem orial [place] Temperature Oral (F) 2019-01-27 17:00:00 98.5 F [facility] [place] Heart Rate 2019-01-27 17:00:00 [facility] [place] Respitory Rate 2019-01-27 [facility] Height 2019-01-22 14:35:00 157.48 cm [facility] BMI Calculated 2019-01-22 14:35:00 [facility] Weight 2019-01-22 14:35:00 [facility] Yonis Weight 2019-01-22 04:34:00 [facility] Procedure Date / Time Performing Clinician Source Performed URINALYSIS 2021-09-10 06:03:00 Neena Bradford [facility] URINE DRUG (IMMUNOASSAY) 2021-09-10 06:03:00 Neena Bradford [facility] SCREEN W/O REFLEX XR CHEST 1 VW 2021-09-10 04:57:30 Neena Bradford [facility] CREATINE KINASE 2021-09-10 04:39:00 Neena Bradford [facility] MAGNESIUM 2021-09-10 04:39:00 Neena Bradford [facility] TROPONIN I 2021-09-10 04:39:00 Neena Bradford [facility] COMP. METABOLIC PANEL 2021-09-10 04:39:00 Neena Bradford [facility] ([id number]) Medical [place] CBC WITH DIFF 2021-09-10 04:39:00 Neena Bradford [facility] PROTHROMBIN TIME / INR 2021-09-10 04:39:00 Neena Bradford [facility] ACTIVATED PARTIAL 2021-09-10 04:39:00 Neena Bradford [facility] PRO-BNP 2021-09-10 04:39:00 Neena Bradford [facility] COVID-19 (ID NOW RAPID 2021-09-10 04:39:00 Neena Bradford [facility] TESTING) Medical Branch TROPONIN I 2021-09-09 21:49:00 [facility] COMP. METABOLIC PANEL 2021-09-09 21:49:00 [place] [facility] ([id number]) Medical Branch LITHIUM 2021-09-09 21:49:00 [facility] CBC WITH DIFF 2021-09-09 21:49:00 [facility] CONSENT/REFUSAL FOR 2021-09-09 19:51:22 Doctor Unassigned, No Un [facility] DIAGNOSIS AND TREATMENT Name Medical Branch URINALYSIS 2020-09-30 13:27:00 Jackson, [facility] ADC,CLC OR LCC ONLY - 2020-09-30 13:27:00 JacksonChuy aleman [facility] INFLUENZA A & B DIRECT Medical B ranch ANTIGEN COVID-19 (ID NOW RAPID 2020-09-30 13:27:00 JacksonChuy [facility] TESTING) Medical Branch Encounters Start End Encounter Admission Attending Care Care Encounter Source Date/Time Date/Time Type Type Clinicians Facility Department ID 2021-09-08 Outpatient Humaira-Mbayo VFP VFP [id number] [place] 02:24:16 _A_ [id number] Family Practic e 2021-09-07 Outpatient Humaira-Mbayo VFP VFP [id number] [place] 22:13:27 _A_AH [id number] Family Practic e 2021-09-07 Outpatient Hmuaira-Mbayo VFP VFP [id number] [place] 13:23:42 _A_ 11750 Family Practic e 2021-09-06 Outpatient Humaira-Mbayo VFP VFP [id number] [facility] 04:23:58 _A_AH 27806 Family Practic e 2021-09-05 Outpatient Bernadine [facility] [id number] [facility] 19:22:48 _A_AH [id number] Family Practic e 2019-01-22 Inpatient E [facility] MED [id number] [facility] W 04:39:00 2021-09-09 2021-09-10 Emergency Sanchez [facility] [id number] Univers 22:20:00 03:02:00 Neena JIMENEZ [id number] i ty of [place] 4.2.7.2.686 [facility] [id number] [address] 2021-09-09 2021-09-10 Emergency X SANCHEZ [facility] ERT [id number] Univers 22:20:00 03:02:00 NEENA tubbs [facility] 2021-09-09 2021-09-10 Emergency X SANCHEZ [facility] ERT [id number] Univers 22:20:00 03:02:00 NEENA tubbs [facility] 2021-09-09 2021-09-09 Emergency Julia [facility] [id number] Univers 14:07:00 17:35:00 Luanne JIMENEZ [id number] i ty of [place] 4.2.7.2.686 [facility] [id number] [address] 2021-09-09 2021-09-09 Orders Doctor BELKYS [id number] Univers 00:00:00 00:00:00 Only Unassigned, LANA [id number] ity of [place] [facility] 4.2.7.2.686 Joe [id number] [facility] 009 Branch 2020-09-30 2020-09-30 Chuy Jackson HISARAI [id number] Univers 07:22:00 08:18:00 Chuy Jimenez [id number] i ty of [place] 4.2.7.2.686 [facility] [id number] [facility] 084 Branch 2020-09-30 2020-09-30 Chuy Jackson HISARAI [id number] 07:22:00 08:18:00 Chuy Jimenez [id number] [place] 4.2.7.2.686 [place] [id number] 2020-09-30 2020-09-30 Emergency X SINGER [facility] ERT [id number] Univers 07:22:00 07:22:00 CHUY tubbs [facility] 2020-03-04 2020-03-14 Inpatient 3 Ronni Eldridge [facility] PSY [id number] 15:38:00 15:25:00 Chente [facility] 2019-01-22 2019-01-28 Inpatient [facility] [id number] Memoria 04:33:00 04:40:[address] r Yonis [address] [facility] 2018-02-21 2018-02-20 [id number] 14:48:00 13:18:00 [facility] Results Test Description Test Time Test Comments Results Result Comments Source TROPONIN I 2021-09-10 05:26:53 Test Item Value Reference Range Interpretation Comme nts TROPONIN I (test code = 0.003 ng/mL See_Comment [Au tomated message] The 3512164204) system which ge nerated this result tra [...] biotin. Lab Interpretation Normal (test code = 00401-4) [place] [facility] [id number] 05:24:16 Test Item Value Reference Range Interpretation Comments NT-proBNP (test code 35 pg/mL See_Comment [Autom ated = 2609240702) message] The system which generated this result transmitted reference range : <=125. The reference range was not used to interpret this result as normal/abnormal . PERRY (test code = PERRY) Biotin has been reported to cause a negative bias, interpret results relative to patient's use of biotin. Lab Interpretation Normal (test code = 81108-4) [facility]2021-[facility]-17 05:16:51 Test Item Value Reference Range Interpretation Comments MAGNESIUM (test code = 6908293685) 1.8 mg/dL 1.7-2.4 Lab Interpretation (test code = Normal 62449-2) [facility]. METABOLIC PANEL ([id number])2021-09-10 05:16:31 Test Item Value Reference Range Interpretation Comments NA (test code = 139 mmol/L 135-145 6724690248) K (test code = 4.0 mmol/L 3.5-5.0 7396924812) CL (test code = 108 mmol/L 98-108 3824750413) CO2 TOTAL (test code 25 mmol/L 23-31 = 4351521095) AGAP (test code = 2-16 4399050866) BUN (test code = 14 mg/dL 7-23 4812725918) GLUCOSE (test code = 88 mg/dL 70-110 5967016682) CREATININE (test code 0.89 mg/dL 0.50-1.04 = 7825123280) TOTAL BILI (test code 0.5 mg/dL 0.1-1.1 = 2814005076) CALCIUM (test code = 10.3 mg/dL 8.6-10.6 8592580466) T PROTEIN (test code 6.9 g/dL 6.3-8.2 = 8103053874) ALBUMIN (test code = 4.3 g/dL 3.5-5.0 8531830335) ALK PHOS (test code = 72 U/L 34-122 0469637137) ALTv (test code = 17 U/L 5-35 1742-6) AST(SGOT) (test code 29 U/L 13-40 = 1975540167) eGFR (test code = mL/min/1.73m2 6849469462) PERRY (test code = PERRY) Association of [...] abnormalities in imaging tests). [place] [facility] [id number] 05:16:16 Test Item Value Reference Range Interpretation Comments CK (test code = 5868779976) 267 U/L 33-194 H Lab Interpretation (test code = Abnormal 26864-6) [facility] THRMPLAS [id number] 05:05:32 Test Item Value Reference Range Interpretation Comments APTT Patient (test See_Comment [Automat ed code = 3173-2) message] The system which generated this result transmitted reference range : 23 - 38 Seconds . The reference range was not used to interpr et this result as normal/abnormal . PERRY (test code = PERRY) The [facility] patient population mean normal value for aPTT is 30 seconds. Lab Interpretation Normal (test code = 67670-3) [place] [facility] / [id number] 05:03:30 Test Item Value Reference Range Interpretation [...] tions. Lab Interpretation (test Normal code = 08318-3) [facility] WITH [id number] 04:57:13 Test Item Value Reference Range Interpretation Comments WBC (test code = See_Comment [Automated 6790-2) message] The sy stem which generated this [...] RDW-SD (test code = 41.2 fL 39.0-49.9 30118-0) RDW-CV (test code = 13.0 % 12.0-15.5 788-0) PLT (test code = See_Comment H [Automated 777-3) message] The sy stem which generated this result transmitted reference range : 166 - 358 10*3/ ?L. The reference r katie was not used to interpret this result as normal/abnormal . MPV (test code = 9.6 fL 9.5-12.9 50051-6) NRBC/100 WBC (test See_Comment [Automat ed code = 1026505275) message] The system which generated this result transmitted reference range : 0.0 - 10.0 /100 WBCs. The refer ence range was not u sed to interpret th is result as normal/abnormal . NRBC x10^3 (test code <0.01 See_Comment [Auto mated = 8920303596) message] The s ystem which generated this result transmitted reference range : 10*3/?L. The reference range was not used to interpret this result as normal/abnormal . GRAN MAT (NEUT) % 61.9 % (test code = 770-8) IMM GRAN % (test code 0.30 % = 8210793908) LYMPH % (test code = 26.0 % 736-9) MONO % (test code = 9.5 % 5905-5) EOS % (test code = 1.6 % 713-8) BASO % (test code = 0.7 % 706-2) GRAN MAT x10^3(ANC) 5.91 10*3/uL 1.88-7.09 (test code = 9735610450) IMM GRAN x10^3 (test 0.03 10*3/uL 0.00-0.06 code = 1610448823) LYMPH x10^3 (test code 2.48 10*3/uL 1.32-3.29 = 731-0) MONO x10^3 (test code 0.91 10*3/uL 0.33-0.92 = 742-7) EOS x10^3 (test code = 0.15 10*3/uL 0.03-0.39 711-2) BASO x10^3 (test code 0.07 10*3/uL 0.01-0.07 = 704-7) Lab Interpretation Abnormal (test code = 54396-4) [facility] [id number] 22:24:55 Test Item Value Reference Interpretation Comments Range TROPONIN I (test 0.002 ng/mL See_Comment [Automated code = 2856646701) message] The system which generated this result [...] biotin. Lab Interpretation Normal (test code = 06251-1) [facility] 22:24[facility]34 Test Item Value Reference Range Interpretation Comments [place] (test code = <0.2 0.6-1.2 L 7273790510) PERRY (test code = PERRY) Toxic Range: ? Greater than 1.2 mmol/L Lab Interpretation (test Abnormal code = 21645-2) [facility] METABOLIC PANEL (30909)2021-09-09 22:13:54 Test Item Value Reference Range Interpretation Comments NA (test code = 139 mmol/L 135-145 4634061310) K (test code = 4.0 mmol/L 3.5-5.0 4250621695) CL (test code = 105 mmol/L 98-108 7644312147) CO2 TOTAL (test code 26 mmol/L 23-31 = 9373591683) AGAP (test code = 2-16 7327098801) BUN (test code = 11 mg/dL 7-23 4940365633) GLUCOSE (test code = 109 mg/dL 70-110 8127740929) CREATININE (test code 0.71 mg/dL 0.50-1.04 = 7935452017) TOTAL BILI (test code 0.6 mg/dL 0.1-1.1 = 8849098365) CALCIUM (test code = 10.4 mg/dL 8.6-10.6 4811658439) T PROTEIN (test code 7.6 g/dL 6.3-8.2 = 5048192733) ALBUMIN (test code = 4.7 g/dL 3.5-5.0 3024459576) ALK PHOS (test code = 78 U/L 34-122 1112543209) ALTv (test code = 19 U/L 5-35 2-6) AST(SGOT) (test code 28 U/L 13-40 = 4267731703) eGFR (test code = mL/min/1.73m2 7312315383) PERRY (test code = PERRY) Association of [...] urine or abnormalities in imaging tests). [facility] WITH GNLM9266-06-89 22:03:32 Test Item Value Reference Range Interpretation Comments WBC (test code = See_Comment [Automated 5254-2) message] The sy stem which generated this [...] RDW-SD (test code = 40.2 fL 39.0-49.9 11263-8) RDW-CV (test code = 12.9 % 12.0-15.5 788-0) PLT (test code = See_Comment H [Automated 777-3) message] The sy stem which generated this result transmitted reference range : 166 - 358 10*3/ ?L. The reference r katie was not used to interpret this result as normal/abnormal . MPV (test code = 9.4 fL 9.5-12.9 L 04138-0) NRBC/100 WBC (test See_Comment [Automat ed code = 9724203076) message] The system which generated this result transmitted reference range : 0.0 - 10.0 /100 WBCs. The refer ence range was not u sed to interpret th is result as normal/abnormal . NRBC x10^3 (test code <0.01 See_Comment [Auto mated = 8793377604) message] The s ystem which generated this result transmitted reference range : 10*3/?L. The reference range was not used to interpret this result as normal/abnormal . GRAN MAT (NEUT) % 67.1 % (test code = 770-8) IMM GRAN % (test code 1.00 % = 3209198943) LYMPH % (test code = 21.4 % 736-9) MONO % (test code = 7.9 % 5905-5) EOS % (test code = 1.8 % 713-8) BASO % (test code = 0.8 % 706-2) GRAN MAT x10^3(ANC) 7.35 10*3/uL 1.88-7.09 H (test code = 8952276382) IMM GRAN x10^3 (test 0.11 10*3/uL 0.00-0.06 H code = 7711477184) LYMPH x10^3 (test code 2.34 10*3/uL 1.32-3.29 = 731-0) MONO x10^3 (test code 0.86 10*3/uL 0.33-0.92 = 742-7) EOS x10^3 (test code = 0.20 10*3/uL 0.03-0.39 711-2) BASO x10^3 (test code 0.09 10*3/uL 0.01-0.07 H = 704-7) Lab Interpretation Abnormal (test code = 36179-1) [facility] - INFLUENZA A & B DIRECT MNCFKFJ8404-66-12 14:04:00 Test Item Value Reference Range Interpretation Comments Influenza A (test code = 82837-9) Negative Negative Influenza B (test code = 24687-0) Negative Negative Lab Interpretation (test code = Normal 24252-0) [facility] (ID NOW RAPID TESTING)2020-09-30 14:03:00 Test Item Value Reference Range Interpretation Comments SARS-CoV-2 Rapid ID NOW Not Detected Not Detected (test code = 05536-4) PERRY (test code = PERRY) ID NOW COVID-19 Assay is an isothermal nucleic acid amplification test intended for the qualitative detection of nucleic acid from SARS-CoV-2 viral RNA in nasopharyngeal (VASCULAR RADIOLOGIST) specimens. It is used under Emergency Use [...] indicated. Lab Interpretation Normal (test code = 79244-8) [facility]2020[facility]07 13:55:00 Test Item Value Reference Range Interpretation Comments APPEARANCE (test code = Hazy Clear A 6539050014) COLOR (test code = Yellow Yellow 7768265466) PH (test code = 4.8-8.0 7656903150) SP GRAVITY (test code = 1.003-1.030 8139159104) GLU U QUAL (test code = Normal Normal 5126197132) BLOOD (test code = Negative Negative 7672890020) KETONES (test code = 5 mg/dL Negative A 2845581620) PROTEIN (test code = Negative Negative 2887-8) UROBILIN (test code = 2.0 mg/dL Normal A 2701015313) BILIRUBIN (test code = Negative Negative 0666662210) NITRITE (test code = Negative Negative 0739496244) LEUK ROZINA (test code = 25/uL Negative A 1703102641) RBC/HPF (test code = See_Comment [Autom ated message] 5808615594) The system [employer] generated this result transmit ngozi reference range : 0 - 3 HPF. The refe rence range was not u sed to interpret th is result as normal/abnormal . WBC/HPF (test code = See_Comment [Autom ated message] 6881245012) The system [employer] generated this result transmit ngozi reference range : 0 - 5 HPF. The refe rence range was not u sed to interpret th is result as normal/abnormal . BACTERIA (test code = Few Negative A 2391335794) MUCOUS (test code = Slight Negative LPF A 3135469033) SQ EPITH (test code = HPF 3577675001) Lab Interpretation (test Abnormal code = 14050-0) [facility] Dallas[facility]PR Faxbkoktjco4779-89-63 16:42:24 Test Item Value Reference Range Interpretation [...] = 10-24-2020 N Expiration Dt) Thyroid Stimulating Hexxkga9206-55-48 08:35:16 Test Item Value Reference Range Interpretation Comments TSH (test code = TSH) 1.170 mIU/mL 0.270-4.200 Lipid Ixmbb9765-05-24 08:21:19 Test Item Value Reference Range Interpretation Comments Cholesterol Total 254 mg/dL 0-200 H RISK OF HE ART (test code = DISEASEPublishe d by Cholesterol Total) [place] [employer] Cathie lyte Optimal Borderl ine [...] calculation is LDL/HDL Ratio=L DL Calc/HDL Chol WCQCSUKBHFGF0946-80-89 08:24:008.6[facility] EhqzdbkBIZCCNIGBJYO8839-37-82 08:24:44087Cotsqssz TupgvwtFMUICIDXYJYV5780-06-04 08:24:0027[facility] QABIZLPJKAYC6055-96-73 08:24:02741Taipyzdu LbvyejjRUBCQOCOVYTT5037-04-77 08:24:003.6[facility] BosqywxYAHRBQENECOI3652-26-93 08:24:000.70[facility] RXTWIIGDUMRZ6497-26-10 08:24:008.4[facility] RmmacroZVNKLWHAWDGM0358-49-59 08:24:09040Oibbmrlp YluejlbQYIWKQULHJCX4197-76-04 08:24:0086[facility] JHYRPGBTONRF7031-51-22 08:24:006[facility] FwodlpiXWUGAVMAKD6523-44-49 08:24:00 11.6[facility] VsjuituZYARDJYHAL8835-28-32 08:24:003.78[facility]annHEMATOLOGY 2019-01-26 08:24:0013.3[facility] IpcppxwSHHJKOKXRZ5425-74-27 08:24:0034.0[facility] BecjekoORZUMYKKHP8091-62-77 08:24:006.3[facility] EkxzuevDIOVZWFTYF8286-01-72 08:24:00 Test Item Value Reference Range Interpretation Comments MCH (test code = MCH) 30.7 pg 27.0-31.0 [facility] QhdlzccYDTFUARPDJ6956-15-76 08:24:0090.3[facility] HermannHEMATOLOGY 2019-01-26 08:24:0034.2[facility] FilnaimKVTNQLTLAF8409-54-52 08:24:36434Kbzfwxab MlkeqvnLWXZQCQLVP9947-34-73 08:24:007.5[facility] NusvlftBVSLQEUUSCXL7710-89-70 08:24:008.6[facility] FwnltgvZBKCXFWBGAEH4555-63-49 08:24:88235Oggqflwj [facility] KFIAUMFBSRNM6137-86-33 08:24:0027[facility] FspzpcvNGMMIXTNBWMK3693-39-99 08:24:00 139[facility] HtfuhowOTXNCAFHZJBJ5142-43-60 08:24:003.6[facility] BHWRTAQIBSGH8221-69-86 08:24:000.70[facility] FdmtfqlCFQVUNIXVNOA6825-26-44 08:24:008.4[facility] HskjgarYSJCDWUEHBBV3653-86-66 08:24:24848Rejwbfcl [facility] RAYPTSKVFHCE8227-92-11 08:24:0086[facility] TefasffAAQSORHJXLNU5799-24-32 08:24:00 6[facility] GdnzbxkVZSYNJUTZW6491-89-41 08:24:0011.6[facility]annHEMATOLOGY 2019-01-26 08:24:003.78[facility] VbzqnzvPPDJMJOOVD7629-34-50 08:24:0013.3[facility] XjsekkhLCVSODKUJQ4445-28-23 08:24:0034.0[facility] NniahcjRVLXMKQFHR6557-77-34 08:24:006.3[facility] SdqfrogBQFCSGWBVD2884-34-94 08:24:00 Test Item Value Reference Range Interpretation Comments MCH (test code = MCH) 30.7 pg 27.0-31.0 [facility] DdlwnheOQHNBRXHCD9556-56-98 08:24:0090.3[facility]annHEMATOLOGY 2019-01-26 08:24:0034.2[facility] OaqgrsxVDDZRWTAFH2182-50-12 08:24:87595Uivzrmoq GtrnaveDWUHDXAFES1187-26-40 08:24:007.5[facility] HermannCHEM LFQDF9698-23-05 09:14:35520Fivcjggp HermannCHEM BBXRD0604-78-18 09:14:008.5[facility]annCHEM XYIFS2544-43-04 09:14:0013.3[facility]annCHEM OUMXK5368-82-35 09:14:0024 [facility]annCHE[facility] OBXYE5220-75-84 09:14:14353Pucyyyey HermannCHEM PANEL 2019-01-25 09:14:0081[facility]annCHEM MWMCL6400-57-17 09:14:002[facility]annCHEM GIAVH6811-93-91 09:14:003.3[facility]annCHEM AEUKS2724-39-84 09:14:000.60[facility]annCHE[facility] ZSTBF5504-73-44 09:14:98646Tsyboqha HermannCHEM ZVDNM7362-09-49 09:14:38426Uessftqm [facility]annCHE[facility] EMJXJ3482-96-16 09:14:008.5 [facility]annCHE[facility] LCIFN5071-77-39 09:14:0013.3[facility]annCHEM PANEL 2019-01-25 09:14:0024[facility]annCHEM MPXJT5083-66-57 09:14:79833Fogmvgmh [facility]annCHE[facility] YVCWY1639-96-77 09:14:0081[facility]annCHEM OOQEQ6430-72-29 09:14:002[facility]annCHEM RSCKY5107-78-42 09:14:003.3[facility]annCHEM ZYDAX4438-03-95 09:14:000.60[facility]annCHEM GBTFY5519-97-46 09:14:29096 [facility]annMOLECULAR XJBISUMZJL3599-96-46 16:22:00Negative (01/23/19 11:22 AM)[facility]annMOLECULAR MQUZFAKSLN5702-36-70 16:22:00Negative (01/23/19 11:22 AM)[facility]annCHEM INBJA5751-63-07 15:42:002.76[facility]annCHEM PANEL 2019-01-23 15:42:002.76[facility]annCHEM VYYTA0768-01-58 12:32:000.9[facility]annCHEM DZBYM7051-50-40 12:32:000.9[facility]annCHEM UBJFI1834-31-25 10:50:002.0[facility]annCHEM JCJAK3575-96-98 10:50:54756Cptzsuoy [facility]annCHEM GXOSS4016-91-22 10:50:0023[facility]annCHEM DEZSD9001-04-73 10:50:08853 [facility]annCHE[facility] EGVSQ8761-66-39 10:50:003.1[facility]annCHEM PANEL 2019-01-23 10:50:75213Qdghjmft [facility]annCHEM VWLIX3265-02-83 10:50:005[facility]annCHEM CJXRE1787-89-92 10:50:000.50[facility]annCHEM RORBF4028-27-12 10:50:007.8[facility]annCHEM CZTNH3606-77-39 10:50:0083[facility]annCHEM SKKUZ5077-35-22 10:50:0010.1[facility] RjrqdrtXSKYACPKAW4214-12-84 10:50:000.2 [facility] TyfmukyUYQDVXQSWT3380-21-36 10:50:000.8[facility] HermannHEMATOLOGY 2019-01-23 10:50:005.5[facility] RcrbnggYLJHTUUKOK8539-32-86 10:50:002.2[facility] NhtprdhEFQMMKFATK7499-34-48 10:50:000.1[facility] YvejzpyDSLVBUCSEX4631-54-72 10:50:0063.6[facility] YrjogpwHQUXHDXYKF5957-33-35 10:50:008.9[facility] QMQFWDURNY7246-11-45 10:50:002.3[facility] RrkwoujNEKJUQDQYC3718-54-10 10:50:00 Normal (01/23/19 5:50 AM)[facility] BkorudiYIUMEPKCSE6986-54-88 10:50:00Normal (01/23/19 5:50 AM)[facility] ZugcpkaMGNUKGLDTO4531-30-92 10:50:0025.1[facility] LwkngfqECSXHYOZBC3138-39-18 10:50:0013.1[facility] HogrfacUTAPBBUDTX8183-33-32 10:50:41280Lqcryydx HheuhswRBQXEBBFQF9224-84-84 10:50:007.7[facility] BAGQJDZMIH9018-95-28 10:50:008.6[facility] TvctokoLHQEIKEJQF9286-70-75 10:50:00 10.0[facility] ZjooeiiTVNWGAZHTU3188-15-26 10:50:0034.[facility] HermannHEMATOLOGY 2019-01-23 10:50:0028.7[facility] DkeaynpEHYIHBHIOM2569-18-32 10:50:0087.8[facility] IlabxbuMKBDLKDIFA0456-34-62 10:50:00 Test Item Value Reference Range Interpretation Comments MCH (test code = MCH) 30.4 pg 27.0-31.0 [facility] GekhllgTVYHFESERL5685-36-00 10:50:003.27[facility]annHEMATOLOGY 2019-01-23 10:50:14233Jtjxzqip MbkifnkOYVXHCQZIE8582-27-68 10:50:007.7[facility] InyifozZIXBNORRVU3009-95-35 10:50:008.[facility]orial LxvtveaXWYYWUBIYT8986-08-82 10:50:0010.0[facility] MxfbottEOFPBOZOIA4039-51-33 10:50:0034.[facility] EVNBMFCDFX6333-71-44 10:50:0028.7[facility] GttjfjaQUZBCFGBBA7949-37-58 10:50:00 87.8[facility] NyijjmtGSARZCQHUV1128-93-09 10:50:00 Test Item Value Reference Range Interpretation Comments MCH (test code = MCH) 30.4 pg 27.0-31.0 [facility] JqjxvngOESBROPDXI9721-65-89 10:50:003.27[facility] HermannCHEM PANEL 2019-01-23 10:50:002.0[facility]annCHEM BTOXS1559-57-60 10:50:96778Qkbdztob [facility]annCHEM QQUYU8990-88-87 10:50:0023[facility]annCHEM JIKKW6267-95-33 10:50:62538Gysiided HermannCHEM CDKVC4040-10-88 10:50:003.1[facility]annCHEM WSUAR6573-14-46 10:50:97243Drwywmkw [facility]annCHE[facility] OWRQF5218-33-55 10:50:005 [facility]annCHE[facility] YTNED7290-18-27 10:50:000.50[facility]annCHEM PANEL 2019-01-23 10:50:007.8[facility]annCHEM PFFIR4518-16-51 10:50:0083[facility]annCHEM FHDAD6655-48-99 10:50:0010.1[facility] MjindskTDJIJGOZWG0405-52-48 10:50:000.2[facility] GknquujIAWLEIULNG6727-68-21 10:50:000.8[facility] ZGIRREBSNP4088-37-39 10:50:005.5[facility] JkwuafuGTRGEOYNCH5741-44-45 10:50:002.2 [facility] ZaikscsIBBZMFLNTJ7296-62-75 10:50:000.1[facility]annHEMATOLOGY 2019-01-23 10:50:0063.6[facility] JtbrpivTOSPZTFUOI4848-58-86 10:50:008.9[facility] BcnafpgIUQPMZEIXS6071-44-62 10:50:002.3[facility] KiujxmxNOAYLQDIQZ9538-63-66 10:50:00Normal (01/23/19 5:50 AM)[facility] DaknqkxWKNHNIWNFX5594-99-17 10:50:00 Normal (01/23/19 5:50 AM)[facility] SfdhufzSUAXYICUCQ0819-63-68 10:50:0025.1[facility] WprcvkkUEUYIYRLYY7667-71-22 10:50:0013.1[facility] HermannCHEM QLUXU8486-20-92 11:32:002.4[facility]annCHEM IYGPX1866-59-23 11:32:002.4[facility]annCHEM XUZBF8821-67-53 09:04:003.0[facility]annCHEM JQVBQ7561-52-72 09:04:003.0 [facility]UR[facility] AND YEUBF4856-03-41 07:14:00 Test Item Value Reference Range Interpretation Comments UA Spec Grav (test code = UA Spec 1.014 1 Grav) [facility] JAYKE8016-94-35 07:14:00 Test Item Value Reference Range Interpretation Comments UA pH (test code = UA pH) 6.0 1 5.0-8.0 [facility] NAVHB2788-39-74 07:14:00Negative (01/22/19 2:14 AM) [facility] XPXUI5348-11-86 07:14:00Negative *NA*(01/22/19 2:14 AM) [facility] RDBRS1381-64-60 07:14:00Negative *NA*(01/22/19 2:14 AM) [facility] OMPYQ8330-67-27 07:14:00Negative *NA*(01/22/19 2:14 AM) [facility] RLMVJ8539-11-31 07:14:00Negative (01/22/19 2:14 AM) [facility] HQYTU6254-44-09 07:14:00Negative (01/22/19 2:14 AM) [facility] CBJAK8629-92-13 07:14:00Negative (01/22/19 2:14 AM) [facility] YVLIG2451-60-39 07:14:00<1[facility] UIYDU3186-17-67 07:14:0025[facility] IFBMS7583-04-83 07:14:002 [facility] SPGSM6163-88-59 07:14:00Light Yellow *NA*(01/22/19 2:14 AM)[facility] GQTKB6396-45-91 07:14:00Clear (01/22/19 2:14 AM) [facility] TSUXV8045-13-75 07:14:00 Test Item Value Reference Range Interpretation Comments UA Spec Grav (test code = UA Spec 1.014 1 Grav) [facility] OPPBV2565-85-69 07:14:00 Test Item Value Reference Range Interpretation Comments UA pH (test code = UA pH) 6.0 1 5.0-8.0 [facility] KPQZL5263-11-44 07:14:00Negative (01/22/19 2:14 AM) [facility] MJMFW5774-94-27 07:14:00Negative *NA*(01/22/19 2:14 AM) [facility] RDNZI8916-05-12 07:14:00Negative *NA*(01/22/19 2:14 AM) [facility] OPHJX3519-96-05 07:14:00Negative *NA*(01/22/19 2:14 AM) [facility] CXIVW6122-20-89 07:14:00Negative (01/22/19 2:14 AM) [facility] HWXXS4279-73-70 07:14:00Negative (01/22/19 2:14 AM) [facility] BDTSL2881-18-81 07:14:00Negative (01/22/19 2:14 AM) [facility] RBABS8528-72-49 07:14:00<1[facility] WJDDA5334-40-28 07:14:0025[facility] VUCVT0410-83-80 07:14:002 [facility] YAFUC4665-92-66 07:14:00Light Yellow *NA*(01/22/19 2:14 AM)[facility] XDVYJ5656-66-51 07:14:00Clear (01/22/19 2:14 AM) [facility] TsqakqeRAKBR5622-84-68 05:16:000.90[facility] YtafompIQOBV0648-13-58 05:16:000.90[facility] SfbpkltCWVMMGPEYC8982-44-55 05:01:0013.6[facility] DBEQMLBZKJ6562-79-64 05:01:30157Ixfwpkrt NsllirrRATKARAOAN4212-92-36 05:01:007.3 [facility] WgtyvlmMCDGYBPZPI0640-06-92 05:01:0014.0[facility]annHEMATOLOGY 2019-01-22 05:01:004.85[facility] AwobebiRZJNPRNWUQ1067-26-43 05:01:0042.7[facility] YaeukkkGJBIOSUVHK9633-86-14 05:01:00 Test Item Value Reference Range Interpretation Comments MCH (test code = MCH) 29.0 pg 27.0-31.0 [facility] UobvyetMAVUQLNZQO8332-28-53 05:01:0088.2[facility]annHEMATOLOGY 2019-01-22 05:01:00 Test Item Value Reference Range Interpretation Comments INR (test code = INR) 0.96 1 0.85-1.17 [facility] TmjqgfrZBUYKBUGOS9368-46-14 05:01:00 Test Item Value Reference Range Interpretation Comments PT (test code = PT) 12.6 s 12.0-14.7 [facility] PcqdmruQIWEGNCQJC4681-60-54 05:01:00 Test Item Value Reference Range Interpretation Comments PTT (test code = PTT) 25.9 s 22.9-35.8 [facility] OZYYNPP9017[facility]99-36 05:01:00Negative (01/22/19 12:01 AM) [facility] HermannCARDIAC XKQBYYQ4192-84-35 05:01:00<0.02[facility] CARDIAC WBKJROV4025-77-39 05:01:0049[facility] HermannCHEM PCMZN3581-51-81 05:01:000.6[facility] HermannCHEM WHQKW9569-29-81 05:01:84571Xstkzxhd HermannCHEM WAVPH2805-00-50 05:01:004.0[facility] HermannCHEM IJZCH9511-30-26 05:01:0017 [facility]annCHE[facility] XTANN0792-50-51 05:01:0025[facility] HermannCHEM PANEL 2019-01-22 05:01:008.1[facility] HermannCHEM ZNAUI7555-07-91 05:01:00 Test Item Value Reference Range Interpretation Comments B/C Ratio (test code = B/C Ratio) 20 1 6-25 [facility]annCHE[facility] ADDHV6269-60-88 05:01:00 Test Item Value Reference Range Interpretation Comments A/G Ratio (test code = A/G Ratio) 1.0 1 0.7-1.6 [facility]annCHEM AIGZD9453-74-47 05:01:004.1[facility]annCHEM PANEL 2019-01-22 05:01:006.90[facility] OouyhfbEZNXMWPUYHBDC1493-31-53 05:01:00Negative *NA*(01/22/19 12:01 AM)[facility] KrddhjzPTMCKWHNMC4697-35-52 05:01:000.1[facility] EgrotlsUDCSZYALBU1121-47-30 05:01:000.7[facility] XpxjidqVDXSOVAMKL8245-05-44 05:01:000.0[facility] IrgtzxaDCKKOEEEZE8211-22-47 05:01:000.0[facility] RSVVSTNGHE1978-32-67 05:01:000.9[facility] MykumtnZUAIQEROWO9081-41-25 05:01:008.6 [facility] VyzhxbdXUHIDGUZCT9770-73-24 05:01:000.6[facility]annHEMATOLOGY 2019-01-22 05:01:0086.5[facility] GdtgxosNEOXPGCKBY2820-63-73 05:01:005.7[facility] LizzsurWIZKADVLPV4172-70-37 05:01:006.9[facility] ZpbqrufVOEHIKZVIB6415-18-51 05:01:009.9[facility] SvubaeiIMOPKNXAKW2315-28-97 05:01:0032.8[facility] BCYGNGTFKS1856-68-56 05:01:0013.6[facility] XiixtbfVPASZPGFDV5120-62-41 05:01:00 443[facility] WyebijtUOOCEBTFRL8386-66-88 05:01:007.3[facility]annHEMATOLOGY 2019-01-22 05:01:0014.0[facility] JidljalDURQZDZVEU4890-51-91 05:01:004.85[facility] UqpkjbdLUCELIDIJI9372-58-31 05:01:0042.7[facility] IwruxihXHQFYWMKAM7546-38-90 05:01:00 Test Item Value Reference Range Interpretation Comments MCH (test code = MCH) 29.0 pg 27.0-31.0 [facility] UgisxqpJNDLCUYNLP3288-10-57 05:01:0088.2[facility]annHEMATOLOGY 2019-01-22 05:01:00 Test Item Value Reference Range Interpretation Comments INR (test code = INR) 0.96 1 0.85-1.17 [facility] XocgjpzUZFJLXUFSY9250-52-60 05:01:00 Test Item Value Reference Range Interpretation Comments PT (test code = PT) 12.6 s 12.0-14.7 [facility]OklufymLYSFEYQZWV6330-87-89 05:01:00 Test Item Value Reference Range Interpretation Comments PTT (test code = PTT) 25.9 s 22.9-35.8 [facility] OPBIPJT5690-44-72 05:01:00Negative (01/22/19 12:01 AM) [facility] HermannCARDIAC KNZVLER4508-90-53 05:01:00<0.02[facility] CARDIAC FUMCJXR1122-85-57 05:01:0049[facility] HermannCHEM XSFFS2346-76-38 05:01:000.6[facility] HermannCHEM WWWIN3065-97-99 05:01:44553Cglmecem HermannCHEM RQXSU5375-78-73 05:01:004.0[facility] HermannCHEM KRCPZ9672-31-52 05:01:0017 [facility]annCHEM PPIXN9609-54-66 05:01:0025[facility] HermannCHEM PANEL 2019-01-22 05:01:008.1[facility] HermannCHEM WKCDT1917-86-02 05:01:00 Test Item Value Reference Range Interpretation Comments B/C Ratio (test code = B/C Ratio) 20 1 6-25 [facility] [id number] 05:01:00 Test Item Value Reference Range Interpretation Comments A/G Ratio (test code = A/G Ratio) 1.0 1 0.7-1.6 [facility] [id number] 05:01:004.1[facility]annCHEM PANEL 2019-01-22 05:01:006.90[facility] BwisdzkKSNCQRQQSEJGO1599-83-62 05:01:00Negative *NA*(01/22/19 12:01 AM)[facility] GgintdrRYQOEBYGUG9970-57-82 05:01:000.1[facility] XzdekatRFVEATLHWM0591-95-61 05:01:000.7[facility] CebsqymEMXTNUJQMD8258-01-12 05:01:000.0[facility] QhgvhdpRFIEXPLOKG9283-62-56 05:01:000.0[facility] FGCHNWGEJF2260-17-81 05:01:000.9[facility] MxwpsnaXKSGNHTXRH5351-12-07 05:01:008.6 [facility] SlomshzQDPNBSQRMX4950-84-02 05:01:000.6[facility]annHEMATOLOGY 2019-01-22 05:01:0086.5[facility] IlfnydgRGEUCZFHLG3455-70-15 05:01:005.7[facility] OhxkqfgUNUFJMLOHP2288-25-18 05:01:006.9[facility] GhnahmmNAFLPGXFMI8783-34-55 05:01:009.9[facility] KzvetmrTZBEDNRPJA9362-21-56 05:01:0032.8[facility] [id number] 14:36:00 Test Item Value Reference Range Interpretation [...] 0.00-0.01 N code = ETOHU) Comprehensive Metabolic [id number] 14:36:00 Test Item Value Reference Range Interpretation [...] the [employer],http :[email or web address] ep.nih.gov Urinalysis Fbwpqbkk9431-49-97 14:32:00 Test Item Value Reference Range Interpretation Comments Color (test code = COLOR) Yellow Yellow,Straw,Pl N yellow Clarity (test code = Clear Clear N CLAR) Specific [place] (test 1.024 1.001-1.035 N code = SPGR) [...] code = Few /HPF BACT) CBC with Surwxclccxah0219-14-86 14:21:00 Test Item Value Reference Range Interpretation [...] code = ALYMPH) 3.0 K/cumm 0.5-4.6 N [place] Abs (test code = AMONO) 0.5 K/cumm 0.0-1.2 N Eos Abs (test code = AEOS) 0.19 K/cumm 0.00-0.74 N Baso Abs (test code = ABASO) 0.1 K/cumm 0.00-0.21 N
--- NOTE | 2021-09-18 16:22 | EDPHYS ---
Physician Documentation [facility] Name: Tiffany Quinn Age: 51 yrs Sex: Female : 1970 Arrival Date: 09/18/2021 Time: 16:01 Bed 7 Private MD: ED Physician James Eric HPI: 09/18 16:26 This 51 yrs old Female presents to ER via Ambulatory with complaints of High Blood kb Pressure. 16:26 The patient complains of pain to the forehead. The patient describes the headache as kb constant. Onset: The symptoms/episode began/occurred 2 week(s) ago. Associated signs and symptoms: Pertinent positives: dizziness. Severity of symptoms: At its worst the pain was mild, in the emergency department the pain is unchanged. The symptoms are alleviated by nothing. the symptoms are aggravated by nothing. The patient has experienced similar episodes in the past. The patient has been recently seen at the [facility] Emergency Department. Pt states she has had this headache and dizziness for a while and wanted to make sure it wasn't due to her blood pressure being high. States she has been having a lot of anxiety as well. Pt has been seen in this ER several times this month for similar complaints. States she can smell something in her nose and would like to know how she can go see for that. Historical: - Allergies: 16:13 Pepcid; aj1 16:13 Toradol; aj1 - Home Meds: 16:13 Fioricet Oral [Active]; aj1 - PMHx: 16:13 Anxiety; Bipolar disorder; ADD; aj1 - Immunization history:: Client reports receiving the 2nd dose of the Covid vaccine. - Social history:: Smoking status: Patient denies any tobacco usage or history of. Patient uses street drugs, Methamphetamine (Meth). ROS: 16:29 Constitutional: Negative for fever, chills, and weight loss. kb 16:29 Neuro: Positive for dizziness, headache. 16:29 Psych: Positive for anxiety. 16:29 All other systems are negative. Exam: 16:28 Constitutional: This is a well developed, well nourished patient who is awake, alert, kb and in no acute distress. Head/Face: Normocephalic, atraumatic. ENT: Moist Mucous membranes Cardiovascular: Regular rate and rhythm with a normal S1 and S2. No gallops, murmurs, or rubs. No pulse deficits. Respiratory: Respirations even and unlabored. No increased work of breathing, no retractions or nasal flaring. Skin: Warm, dry with normal turgor. Normal color. MS/ Extremity: Pulses equal, no cyanosis. Neurovascular intact. Full, normal range of motion. Neuro: Awake and alert, GCS 15, oriented to person, place, time, and situation. Moves all extremities. Normal gait. 16:28 Psych: Behavior/mood is pleasant, cooperative, anxious, Affect is animated, Oriented to person, place, time, Patient has no thoughts/intents to harm self or others. Vital Signs: 16:11 BP 121 / 92; Pulse 94; Resp 18; Temp 98.3; Pulse Ox 99% ; Weight 71.21 kg; Height 5 ft. aj1 3 in. (160.02 cm); Pain 6/10; 16:11 Body Mass Index 27.81 (71.21 kg, 160.02 cm) aj1 [place] Coma Score: 16:28 Eye Response: spontaneous(4). Verbal Response: oriented(5). Motor Response: obeys kb commands(6). Total: 15. MDM: 16:17 Patient medically screened. kb 16:28 Data reviewed: vital signs, nurses notes. Data interpreted: Pulse oximetry: on room air kb is 99 %. Interpretation: normal. Counseling: I had a detailed discussion with the patient and/or guardian regarding: the historical points, exam findings, and any diagnostic results supporting the discharge/admit diagnosis, the need for outpatient follow up, an ENT specialist, a family practitioner, to return to the emergency department if symptoms worsen or persist or if there are any questions or concerns that arise at home. Administered Medications: 16:27 Drug: Tylenol 1000 mg Route: PO; ll3 16:29 Follow up: Response: No adverse reaction ll3 Disposition Summary: 09/18/21 16:22 Discharge Ordered Location: Home kb Condition: Stable kb Diagnosis - Headache kb - Anxiety disorder, unspecified kb Followup: kb - With: Emergency Department - When: As needed - Reason: Worsening of condition Followup: kb - With: Private Physician - When: 2 - 3 days - Reason: Recheck today's complaints, Continuance of care, Re-evaluation by your physician Discharge Instructions: - Discharge Summary Sheet kb - Panic Attack, [id number] kb - General Headache Without Cause, [id number] kb - Generalized Anxiety Disorder, Adult kb Forms: - Medication Reconciliation Form kb - Thank You Letter kb - Antibiotic Education kb - Prescription Opioid Use kb Signatures: Beatrice Ledezma, DI[employer]OND [employer]ER-C TITA-Natasha Montoya RN RN aj1 Peyman Duke RN RN ll3 Corrections: (The following items were deleted from the chart) 16:15 16:13 Allergies: No Known Allergies; aj1 aj1
--- NOTE | 2021-09-18 16:22 | ER ---
Nurse's Notes [facility] Name: Tiffany Quinn Age: 51 yrs Sex: Female : 1970 Arrival Date: 09/18/2021 Time: 16:01 Bed 7 Private MD: Diagnosis: Headache;Anxiety disorder, unspecified Presentation: 09/18 16:11 Chief complaint: Patient states: pressure in both eyes, 'feels like my blood pressure aj1 is high'. States nausea and dizziness. Coronavirus screen: Vaccine status: Patient reports receiving the 2nd dose of the covid vaccine. Ebola Screen: Patient negative for fever greater than or equal to 101.5 degrees Fahrenheit, and additional compatible Ebola Virus Disease symptoms. Initial Sepsis Screen: Does the patient meet any 2 criteria? No. Patient's initial sepsis screen is negative. Does the patient have a suspected source of infection? No. Patient's initial sepsis screen is negative. Risk Assessment: Do you want to hurt yourself or someone else? Patient reports no desire to harm self or others. Onset of symptoms was September 18, 2021. 16:11 Method Of Arrival: Ambulatory aj1 16:11 Acuity: MANUEL 3 aj1 Triage Assessment: 16:13 General: Appears in no apparent distress. comfortable, Behavior is calm, cooperative. aj1 Pain: Complains of pain in right eye and left eye. Historical: - Allergies: 16:13 Pepcid; aj1 16:13 Toradol; aj1 - Home Meds: 16:13 Fioricet Oral [Active]; aj1 - PMHx: 16:13 Anxiety; Bipolar disorder; ADD; aj1 - Immunization history:: Client reports receiving the 2nd dose of the Covid vaccine. - Social history:: Smoking status: Patient denies any tobacco usage or history of. Patient uses street drugs, Methamphetamine (Meth). Screenin:28 Abuse screen: Denies threats or abuse. Nutritional screening: No deficits noted. ll3 Tuberculosis screening: No symptoms or risk factors identified. Fall Risk None identified. Assessment: 16:27 General: See triage. ll3 Vital Signs: 16:11 BP 121 / 92; Pulse 94; Resp 18; Temp 98.3; Pulse Ox 99% ; Weight 71.21 kg; Height 5 ft. aj1 3 in. (160.02 cm); Pain 6/10; 16:11 Body Mass Index 27.81 (71.21 kg, 160.02 cm) aj1 [place] Coma Score: 16:28 Eye Response: spontaneous(4). Verbal Response: oriented(5). Motor Response: obeys kb commands(6). Total: 15. ED Course: 16:01 Patient arrived in ED. ds1 16:13 Triage completed. aj1 16:13 Arm band placed on. aj1 16:17 Beatrice L[facility]C [facility]. kb 16:17 James Eric MD is Attending Physician. kb 16:25 Yazmin Marte, RN is Primary Nurse. [id number] 16:27 Peyman Duke, RN is Primary Nurse. ll3 16:28 No provider procedures requiring assistance completed. Patient did not have IV access ll3 during this emergency room visit. 16:29 Patient has correct armband on for positive identification. Bed in low position. Call ll3 light in reach. Side rails up X 1. Administered Medications: 16:27 Drug: Tylenol 1000 mg Route: PO; ll3 16:29 Follow up: Response: No adverse reaction ll3 Outcome: 16:22 Discharge ordered by MD. kb 16:28 Discharged to home ambulatory. ll3 16:28 Condition: stable 16:28 Discharge instructions given to patient, Instructed on discharge instructions, follow up and referral plans. Demonstrated understanding of instructions, follow-up care. 16:30 Patient left the ED. ll3 Signatures: Beatrice Ledezma FNP-C FNP-Ckb Johnson, Angela, RN RN aj1 Neelima Rivera ds1 Yazmin Marte RN RN [id number] Peyman Duke RN RN ll3 Corrections: (The following items were deleted from the chart) 16:15 16:13 Allergies: No Known Allergies; aj1 aj1
[2021-09-18 16:36] VITALS: BP 121/92; TEMP 98.3; O2SAT 99
== END 2021-09-18 16:30 | disposition home or self-care (01) ==
LOC: ER 16:00
DX: F41.9 Anxiety disorder, unspecified (principal); F31.9 Bipolar disorder, unspecified; Z88.5 Allergy status to narcotic agent; Z88.8 Allergy status to other drugs, medicaments and biological substances
CPT/HCPCS: 99283

== ENCOUNTER 2021-09-20 16:47 | Emergency (ER) | payer OTHER ==
--- OUTSIDE RECORDS SUMMARY | 2021-09-20 16:53 | XMS REPORT | Continuity of Care Document ---
:1970 Author Organization [facility] t Address [address] [place] [address] Care Team Providers Name Role Phone UNKNOWN [...] Number Effective Date Expiration Date S [facility] OF [place] - [id number] 2020 [employer] 00:00:00 (MEDICARE REPLACEMENT/ADVANT AGE - HMO) Problems Condition Condition Condition Status Onset Resolution Last Treating Co mments Source Name Details Category Date Date Treatment Clinician Date LOW PB Diagnosis Active 2019-01-22 Mem oria 01-21 01:52:00 l LOW PB 00:00: Yonis 00 Active 01/21/2019 [place] INFECTIOUS Diagnosis Active 2019-02-06 Memoria GASTROENTE 01-21 08:58:00 l RITIS AND 00:00: [place] COLITIS INFECTIOUS 00 GASTROENTE RITIS AND COLITIS Active 01/21/2019 [facility] Irregular Irregular Disease Active Uni vers menstrual menstrual 8-15 ity of cycle cycle 00:00: [address] Skin Skin Disease Active Univers lesion lesion 8-15 ity of 00:00: [address] Psychiatri Psychiatri Disease Active U nivers c disorder c disorder 8-15 it y of 00:00: [address] Well woman Well woman Disease Active U nivers exam with exam with 8-15 ity of routine routine 00:00: [place] gynecologi gynecologi 00 Me dical nicky exam nicky exam Branch INFECTIOUS Diagnosis Active 2019-02-06 Memoria GASTROENTE 08:58:00 l RITIS AND Yonis COLITIS, INFECTIOUS GASTROENTE RITIS AND COLITIS, Active [facility] Allergies, Adverse Reactions, Alerts Allergy Allergy Status Severity Reaction(s) Onset Inactive Treating Comm ents Source Name Type Date Date Clinician Phenerga Phenerga Active Memori a n n l Yonis NO KNOWN Drug Active Univers ALLERGIE Class ity of S [facility] Social History Social Habit Start Date Stop Date Quantity Comments Source History of Cigarette Smoker Universi ty of tobacco use [facility] Tobacco Comment 2-3 cigs a day [facility] Exposure to Not sure [place] of SARS-CoV-2 [facility] (event) [place] Tobacco use and 2016-06-08 2016-06-08 [facility]00 00:00:00 [facility] Alcohol intake 2016-06-08 2016-06-08 0 /d University of 00:00:00 00:00:00 [facility] Sex Ass[birth year] At [birth year] Universit y of 00:00:00 00:00:00 [facility] Smoking Status Start Date Stop Date Source Social History 2019-01-22 05:00:12 [facility] Her urena Current some day smoker 2016-06-08 00:00:00 [facility] Medications Ordered Filled Start Stop Current Ordering Indication Dosage Frequency Signature Comments Components Source Medication Medication Date Date Medication? Clinician (SIG) Name Name cefTRIAXone 2020-10- No 1000mg 1,000 mg, Univers (ROCEPHIN) 17 11-17 IV ity of 1,000 mg in 08:30: 08:01 [place], [place] NaCl 0.9% 00 :00 ONCE, 1 [...] 09/09/21 at 2330, RANDA amoxicillin 2020-10 Yes [id number] 500mg Take 1 Univers 500 mg 11-10 capsule by ity of capsule 00:00: mouth 3 [place] 00 (three) Medical times Branch daily. ondansetron 2019-10- No 4mg 4 mg, [facility] ers (ZOFRAN-ODT 12-01 Oral, ity of ) 15:15: 14:16 ONCE, 1 [place] disintegrat 00 :00 dose, Mon Med ical ing tablet 09/30/20 at [facility] 4 mg 0915, Routine ondansetron 2019-10- No 4mg 4 mg, [facility] ers (ZOFRAN-ODT 12-01- Oral, ity of ) 14:30: 13:32 ONCE, 1 [place] disintegrat 00 :00 dose, Mon Med ical ing tablet 09/30/20 at [facility] nc 4 mg 0830, Routine ondansetron 2019-10 Yes [id number] 4mg Take 1 Univers 4 mg 2-07 tablet by ity of disintegrat 00:00: mouth [place] ing tablet 00 every 8 Medica l (eight) Branch hours as needed for Nausea and Vomiting (N/V). ondansetron 2019-10 Yes [id number] 4mg Take 1 Univers 4 mg 2-07 tablet by ity of disintegrat 00:00: mouth [place] ing tablet 00 every 8 Medica l (eight) Branch hours as needed for Nausea and Vomiting (N/V). ondansetron 2019-10 Yes [id number] 4mg Take 1 Univers 4 mg 2-07 tablet by ity of disintegrat 00:00: mouth [place] ing tablet 00 every 8 Medica l (eight) Branch hours as needed for Nausea and Vomiting (N/V). ondansetron 2019-10 Yes [id number] 4mg Take 1 Univers 4 mg 2-07 tablet by ity of disintegrat 00:00: mouth [place] ing tablet 00 every 8 Medica l (eight) Branch hours as needed for Nausea and Vomiting (N/V). ciprofloxac 2019 Yes 500 mg = 1 Memoria in 500 mg 4-04 tab, PO, l oral tablet 17:35: [id number], X Yonis 00 4 day, # 8 [...] 4-04 tab, PO, l oral tablet 17:35: [id number], X [place] 00 4 day, # 8 tab, 0 [...] s with feeding tube less than 14 [place] (Dobhoff, J-tube etc) and pediatric and patients. Potassium No Notes: Memori a Chloride 4-03 (Same as: l 13:26: K-Dur 20) [place] "Do Not Crush" Give with food and full glass of water For patients unable to swallow tablet, dissolve in one half glass of water. Allow about 2 minutes for the tablets to disintegra te. Stir before giving to prepare slurry and administer . Please exclude Patient s with feeding tube less than 14 [place] (Dobhoff, J-tube etc) and pediatric and patients. Strattera No 0.5 mg/kg, Me moria 01-24 Route: PO, l 14:00: QAM, Yonis Dosing Weight 75, kg, Start date: 01/24/19 9:00:00 CDT, Duration: 30 day, Stop date: 02/22/19 9:00:00 CDT Strattera 0 No 0.5 mg/kg, Me moria 402 Route: PO, l 14:00: QAM, [place] 00 Dosing Weight 75, kg, Start date: [...] Memoria 4- (Same as: l 15:00: Flagyl) [place] 00 Take with food/ avoid alcohol Cipro No Notes: February Memori a 4- interfere l 15:00: w/enteral [place] 00 feedings - Take 1 hr before [...] PO, ONCE, l mEq oral 14:20: 0 [place] tablet, 00 Refill(s) extended release Metronidazo No 500 mg, Mem oria le 500 MG 4-01 PO, l Oral Tablet 14:20: [id number], 0 [place] [Flagyl] 00 Refill(s) Ciprofloxac No 500 mg, Mem oria in 500 MG 01 PO, l Oral Tablet 14:20: [id number], 0 [place] [Cipro] 00 Refill(s) potassium Yes 40 mEq, Memor ia chloride 20 -01 PO, ONCE, l mEq oral 14:20: 0 [place] tablet, 00 Refill(s) extended release Metronidazo No 500 mg, Mem oria le 500 MG 4-01 PO, l Oral Tablet 14:20: [id number], 0 H [place] [Flagyl] 00 Refill(s) Ciprofloxac No 500 mg, Mem oria in 500 MG 4-01 PO, l Oral Tablet 14:20: [id number], 0 Yonis [Cipro] 00 Refill(s) Potassium No [...] s with feeding tube less than 14 [place] (Dobhoff, J-tube etc) and pediatric and patients. [...] s with feeding tube less than 14 [place] (Dobhoff, J-tube etc) and pediatric and patients. [...] tab, PO, l Tablet 21:08: BID, 0 [place] [Risperdal] 00 Refill(s) Strattera Yes 0.5 mg/kg, [...] tab, PO, l Tablet 21:08: BID, 0 [place] [Risperdal] 00 Refill(s) Zosyn No Notes: Memoria [...] oria 3-31 to exceed l 15:03: 400mg/day. [place] 00 (Same As: Ultram) Tramadol No Notes: [...] 01-22 Route: IM, l 09:47: Drug form: [place] 00 PDR/INJ, PRN, Dosing Weight 75.994, kg, [...] 01-22 Route: IM, l 09:47: Drug form: [place] PDR/INJ, PRN, Dosing Weight 75.994, kg, PRN Blood Glucose Results, Start date: 01/22/19 4:47:00 CDT, Duration: 30 day, Stop date: 02/21/19 4:46:00 CDT Dextrose 2018- No 12.5 gm, Memor ia 50% Syringe 3-31 25 mL, l 09:47: Route: [place] 00 IVP, Drug Form: INJ, Dosing Weight [...] moria IV 3-31 1,000 l 08:52: ml/hr, [place] 00 Infuse Over: 1 hr, Route: IV, [...] 0.9% 3-31 Same as: l 04:52: BD [place] Posiflush Sterile NS (Bolus) No 1,000 mL, Me moria IV 3-31 1,000 l 04:51: ml/hr, [place] 00 Infuse Over: 1 hr, Route: IV, 1,000, Drug form: INJ, ONCE, Priority: STAT, Dosing Weight 75.994 kg, Start date: 01/21/19 23:51:00 CDT, Stop date: 01/21/19 23:51:00 CDT NS (Bolus) No 1,000 mL, Me moria IV 01-22 1,000 l 04:51: ml/hr, [place] 00 Infuse Over: 1 hr, Route: IV, [...] HYDROBROMID 8-15 mouth. ity of E 19:02: [place] (CITALOPRAM 27 Medical ORAL) Branch ibuprofen 2016-0 Yes 200mg Take 200 Uni vers (ADVIL) 200 8-15 mg by ity of mg tablet 14:02: mouth [place] [address] every 6 Medical (six) Branch hours as needed. CLONAZEPAM 2016-0 Yes Take by Uni vers (KLONOPIN 8-15 mouth. ity of ORAL) 14:02: [address] Branch CITALOPRAM 2016-0 Yes Take by Uni vers HYDROBROMID 8-15 mouth. ity of E 14:02: [place] (CITALOPRAM 27 Medical ORAL) Branch ibuprofen 2016-0 Yes 200mg Take 200 Uni vers (ADVIL) 200 8-15 mg by ity of mg tablet 14:02: mouth [place] [address] every 6 Medical (six) Branch hours as needed. CLONAZEPAM 2016-0 Yes Take by Uni vers (KLONOPIN 8-15 mouth. ity of ORAL) 14:02: [address] Branch CITALOPRAM 2016-0 Yes Take by Uni vers HYDROBROMID 8-15 mouth. ity of E 14:02: [place] (CITALOPRAM 27 Medical ORAL) Branch ibuprofen 2016-0 Yes 200mg Take 200 Uni vers (ADVIL) 200 8-15 mg by ity of mg tablet 14:02: mouth [place] [address] every 6 Medical (six) Branch hours as needed. CLONAZEPAM 2016-0 Yes Take by Uni vers (KLONOPIN 8-15 mouth. ity of ORAL) 14:02: [place] [address] Medical Branch CITALOPRAM 2016-0 Yes Take by Uni vers HYDROBROMID 8-15 mouth. ity of E 14:02: [place] (CITALOPRAM 27 Medical ORAL) Branch misoprostol 2016-0 [...] H it y of en-caff 00:00: PRN. [place] (ESGIC) 00 Medical 50-325-40 Branch mg tablet butalbital- 2015-0 Yes TK 1 TO 2 U nivers acetaminoph 8-01 T PO Q 8 H it y of en-caff 00:00: PRN. [place] (ESGIC) 00 Medical 50-325-40 Branch mg tablet butalbital- 2015-0 Yes TK 1 TO 2 U nivers acetaminoph 8-01 T PO Q 8 H it y of en-caff 00:00: PRN. [place] (ESGIC) 00 Medical 50-325-40 Branch mg tablet butalbital- 2016-0 Yes TK 1 TO 2 U nivers acetaminoph 8-01 T PO Q 8 H it y of en-caff 00:00: PRN. [place] (ESGIC) 00 Medical 50-325-40 Branch mg tablet dextroamphe 0 Yes TK 1 T PO U nivers tamine-amph 7-20 BID. ity of etamine 00:00: [place] (ADDERALL) 00 Medical 20 mg Branch tablet dextroamphe Yes TK 1 T PO U nivers tamine-amph 7-20 BID. ity of etamine 00:00: [place] (ADDERALL) 00 Medical 20 mg Branch tablet dextroamphe Yes TK 1 T PO U nivers tamine-amph 7-20 BID. ity of etamine 00:00: [place] (ADDERALL) 00 Medical 20 mg Branch tablet [...] Center Heart rate 2021-09-10 08:01:00 87 /min [facility] Respiratory rate 2021-09-10 08:01:00 20 /min [facility] Oxygen saturation in 2021-09-10 08:01:00 98 /min University of Arterial blood by [place] [employer] [facility] Pulse oximetry Branch Body temperature 2021-09-10 04:28:51 37.17 Ruthann [facility] Body height 2021-09-10 04:26:00 154.9 cm [facility] Body weight 2021-09-10 04:26:00 81.647 kg [facility] BMI 2021-09-10 04:26:00 34.01 kg/m2 [facility] Systolic blood 2021-09-09 20:06:00 150 mm[Hg] Univer sity of [facility] Diastolic blood 2021-09-09 20:06:00 89 mm[Hg] Unive rsity of [facility] Heart rate 2021-09-09 20:06:00 108 /min [facility] Body temperature 2021-09-09 20:06:00 37.22 Ruthann [facility] Respiratory rate 2021-09-09 20:06:00 18 /min [facility] Oxygen saturation in 2021-09-09 20:06:00 99 /min University of Arterial blood by [employer] nicky Pulse oximetry Branch Body weight 2021-09-09 20:05:00 81.647 kg Universi ty [facility] [place] [facility] BMI 2021-09-09 20:05:00 32.40 kg/m2 Universi ty [facility] [place] [facility] Systolic blood 2020-09-30 14:00:00 126 mm[Hg] Univer sity of pressure [place] [facility] Diastolic blood 2020-09-30 14:00:00 84 mm[Hg] Unive rsity of pressure [place] [facility] Heart rate 2020-09-30 14:00:00 79 /min Universi ty [facility] [place] [facility] Oxygen saturation in 2020-09-30 14:00:00 98 /min University of Arterial blood by [facility] nicky Pulse oximetry Branch Body temperature 2020-09-30 13:26:00 37.22 Ruthann Univ ersity of [place] [facility] Respiratory rate 2020-09-30 13:26:00 16 /min Univ ersity of [place] [facility] Body weight 2020-09-30 13:26:00 72.576 kg [facility]i ty [facility] [place] [facility] BMI 2020-09-30 13:26:00 28.80 kg/m2 [facility]i ty [facility] [place] [facility] Systolic blood 2020-09-30 14:00:00 126 mm[Hg] Univer sity of pressure [place] [facility] Diastolic blood 2020-09-30 14:00:00 84 mm[Hg] Unive rsity of pressure [place] [facility] Heart rate 2020-09-30 14:00:00 79 /min Universi ty of [place] [facility] Oxygen saturation in 2020-09-30 14:00:00 98 /min University of Arterial blood by [facility] nicky Pulse oximetry Branch Body temperature 2020-09-30 13:26:00 37.22 Ruthann Univ ersity of [place] [facility] Respiratory rate 2020-09-30 13:26:00 16 /min Univ ersity of [place] [facility] Body weight 2020-09-30 13:26:00 72.576 kg [facility]i ty [facility] [place] [facility] BMI 2020-09-30 13:26:00 28.80 kg/m2 [facility] [place] [facility] Temperature Oral (F) 2019-01-28 01:16:00 98.6 F Memorial Yonis Systolic (mm Hg) 2019-01-28 01:16:00 Estrada rial [place] Diastolic (mm Hg) 2019-01-28 01:16:00 Mem orial [place] Heart Rate 2019-01-28 01:16:00 [facility] [place]on[place] Respitory Rate 2019-01-28 01:16:00 Memori al [place] Systolic (mm Hg) 2019-01-27 20:42:00 Estrada rial [place] Diastolic (mm Hg) 2019-01-27 20:42:00 Mem orial Yonis Heart Rate 2019-01-27 20:42:00 [facility] [place] Respitory Rate 2019-01-27 20:42:00 Memori al [place] Temperature Oral (F) 2019-01-27 20:42:00 98.5 F Memorial [place] Systolic (mm Hg) 2019-01-27 17:00:00 Estrada rial Yonis Diastolic (mm Hg) 2019-01-27 17:00:00 Mem orial [place] Temperature Oral (F) 2019-01-27 17:00:00 98.5 F Memorial [place] Heart Rate 2019-01-27 17:00:00 [facility] [place] Respitory Rate 2019-01-27 17:00:00 [facility] [place] Height 2019-01-22 14:35:00 157.48 cm [facility] BMI Calculated 2019-01-22 14:35:00 [facility] [place] Weight 2019-01-22 14:35:00 [facility] [place] Weight 2019-01-22 04:34:00 [facility] Procedure Date / Time Performing Clinician Source Performed URINALYSIS 2021-09-10 06:03:00 Neena Bradford [facility] URINE DRUG (IMMUNOASSAY) 2021-09-10 06:03:00 Neena Bradford [facility] SCREEN W/O REFLEX XR CHEST 1 VW 2021-09-10 04:57:30 Neena Bradford [facility] CREATINE KINASE 2021-09-10 04:39:00 Neena Bradford [facility] MAGNESIUM 2021-09-10 04:39:00 Neena Bradford [facility] TROPONIN I 2021-09-10 04:39:00 Neena Bradford [facility] COMP. METABOLIC PANEL 2021-09-10 04:39:00 Neena Bradford [facility] ([id number]) Medical [place] CBC WITH DIFF 2021-09-10 04:39:00 Neena Bradford [facility] PROTHROMBIN TIME / INR 2021-09-10 04:39:00 Neena Bradford [facility] ACTIVATED PARTIAL 2021-09-10 04:39:00 Neena Bradford [facility] N-TERMINAL PRO-BNP 2021-09-10 04:39:00 Neena Bradford [facility] COVID-19 (ID NOW RAPID 2021-09-10 04:39:[address] [facility] TESTING) Medical Branch TROPONIN I 2021-09-09 21:49:00 [facility] COMP. METABOLIC PANEL 2021-09-09 21:49:00 Rising Fa[facility]uan[facility] ([id number]) Medical Branch LITHIUM 2021-09-09 21:49:00 [facility] CBC WITH DIFF 2021-09-09 21:49:00 [facility] CONSENT/REFUSAL FOR 2021-09-09 19:51:22 Doctor Unassigned, No Un [facility] DIAGNOSIS AND TREATMENT Name Medical Branch URINALYSIS 2020-09-30 13:27:00 Jackson, [facility] ADC,CLC OR LCC ONLY - 2020-09-30 13:27:00 JacksonChuy aleman [facility] INFLUENZA A & B DIRECT Medical B ranch ANTIGEN COVID-19 (ID NOW RAPID 2020-09-30 13:27:[address] [facility] TESTING) Medical Branch Encounters Start End Encounter Admission Attending Care Care Encounter Source Date/Time Date/Time Type Type Clinicians Facility Department ID 2021-09-08 Outpatient Humaira-Mbayo VFP VFP [id number] [place] 02:24:16 _A_ [id number] Family Practic e 2021-09-07 Outpatient Humaira-Mbayo VFP VFP [id number] [place] 22:13:27 _A_AH [id number] Family Practic e 2021-09-07 Outpatient Humaira-Mbayo VFP VFP [id number] -[id number] [place] 13:23:42 _A_ [id number] Family Practic e 2021-09-06 Outpatient Humaira-Mbayo VFP VFP [id number] [facility] 04:23:58 _A_AH [id number] Family Practic e 2021-09-05 Outpatient Bernadine [facility] [id number] [facility] 19:22:48 _A_AH [id number] Family Practic e 2019-01-22 Inpatient E [facility] MED [id number] [facility] W 04:39:00 2021-09-09 2021-09-10 Emergency Sanchez [facility] [id number] Univers 22:20:00 03:02:00 Neena JIMENEZ 350.1.13.10 i ty of [place] 4.2.7.2.686 [facility] [id number] [address] 2021-09-09 2021-09-10 Emergency X SANCHEZ [facility] ERT [id number] Univers 22:20:00 03:02:00 ENENA cherrie [facility] 2021-09-09 2021-09-10 Emergency X SANCHEZ [facility] ERT [id number] Univers 22:20:00 03:02:00 NEENA tubbs [facility] 2021-09-09 2021-09-09 Emergency Julia [facility] [id number] Univers 14:07:00 17:35:00 Luanne JIMENEZ 350.1.13.10 i ty of [place] 4.2.7.2.686 [facility] [id number] [address] 2021-09-09 2021-09-09 Orders Doctor BELKYS [id number] Univers 00:00:00 00:00:00 Only Unassigned, LANA 350.1.13.10 ity of [place] [facility] 4.2.7.2.686 Joe [id number] [facility] 009 Branch 2020-09-30 2020-09-30 Emergency Singer PRSARAI [id number] 07:22:00 08:18:00 Chuy Jimenez 350.1.13.10 [place] 4.2.7.2.686 [place] [id number] 2020-09-30 2020-09-30 Emergency Singer PRSARAI [id number] Univers 07:22:00 08:18:00 Chuy Jimenez 350.1.13.10 i ty lev [place] 4.2.7.2.686 [facility] [id number] [place] [address] Branch 2020-09-30 2020-09-30 Emergency X SINGER [facility] ERT [id number] Univers 07:22:00 07:22:00 CHUY tubbs [facility] 2020-03-04 2020-03-14 Inpatient 3 Johnnie Eldridgekeel [facility] PSY [id number] 15:38:00 15:25:00 Chente [facility] 2019-01-22 2019-01-28 Inpatient [facility] [id number] Memoria 04:33:00 04:40:[address] [facility] 2018-02-21 2018-02-20 Inpatient E [facility] MED [id number] 14:48:00 13:18:00 [facility] Results Test Description Test Time Test Comments Results Result Comments Source TROPONIN I 2021-09-10 05:26:53 Test Item Value Reference Range Interpretation Comme nts TROPONIN I (test code = 0.003 ng/mL See_Comment [Au tomated message] The 1397199404) system which ge nerated this result tra [...] biotin. Lab Interpretation Normal (test code = 74658-3) [facility] [id number] 05:24:16 Test Item Value Reference Range Interpretation Comments NT-proBNP (test code 35 pg/mL See_Comment [Autom ated = 9851784614) message] The system which generated this result transmitted reference range : <=125. The reference range was not used to interpret this result as normal/abnormal . PERRY (test code = PERRY) Biotin has been reported to cause a negative bias, interpret results relative to patient's use of biotin. Lab Interpretation Normal (test code = 23611-0) [facility] 05:16:51 Test Item Value Reference Range Interpretation Comments MAGNESIUM (test code = 3922640680) 1.8 mg/dL 1.7-2.4 Lab Interpretation (test code = Normal 72697-3) [facility]. METABOLIC PANEL ([id number])2021-09-10 05:16:31 Test Item Value Reference Range Interpretation Comments NA (test code = 139 mmol/L 135-145 8544070807) K (test code = 4.0 mmol/L 3.5-5.0 3474453730) CL (test code = 108 mmol/L 98-108 3537861142) CO2 TOTAL (test code 25 mmol/L 23-31 = 3294564370) AGAP (test code = 2-16 9143379914) BUN (test code = 14 mg/dL 7-23 1125274080) GLUCOSE (test code = 88 mg/dL 70-110 6748413973) CREATININE (test code 0.89 mg/dL 0.50-1.04 = 5864637929) TOTAL BILI (test code 0.5 mg/dL 0.1-1.1 = 9150488783) CALCIUM (test code = 10.3 mg/dL 8.6-10.6 7331918418) T PROTEIN (test code 6.9 g/dL 6.3-8.2 = 1722749922) ALBUMIN (test code = 4.3 g/dL 3.5-5.0 2378582228) ALK PHOS (test code = 72 U/L 34-122 0930314127) ALTv (test code = 17 U/L 5-35 1742-6) AST(SGOT) (test code 29 U/L 13-40 = 5051099553) eGFR (test code = mL/min/1.73m2 2187925797) EPRRY (test code = PERRY) Association of [...] or urine or abnormalities in imaging tests). [facility] [id number] 05:16:16 Test Item Value Reference Range Interpretation Comments CK (test code = 3036361875) 267 U/L 33-194 H Lab Interpretation (test code = Abnormal 07395-5) [facility] THRMPLAS [id number] 05:05:32 Test Item Value Reference Range Interpretation Comments APTT Patient (test See_Comment [Automat ed code = 3173-2) message] The system which generated this result transmitted reference range : 23 - 38 Seconds . The reference range was not used to interpr et this result as normal/abnormal . PERRY (test code = PERRY) The [facility] patient population mean normal value for aPTT is 30 seconds. Lab Interpretation Normal (test code = 30708-7) [facility] Center[facility] / [id number] 05:03:30 Test Item Value Reference Range Interpretation [...] tions. Lab Interpretation (test Normal code = 27093-3) [facility] WITH [id number] 04:57:13 Test Item Value Reference Range Interpretation Comments WBC (test code = See_Comment [Automated 7190-2) message] The sy stem which generated this [...] RDW-SD (test code = 41.2 fL 39.0-49.9 73602-4) RDW-CV (test code = 13.0 % 12.0-15.5 788-0) PLT (test code = See_Comment H [Automated 777-3) message] The sy stem which generated this result transmitted reference range : 166 - 358 10*3/ ?L. The reference r katie was not used to interpret this result as normal/abnormal . MPV (test code = 9.6 fL 9.5-12.9 88605-7) NRBC/100 WBC (test See_Comment [Automat ed code = 0177430999) message] The system which generated this result transmitted reference range : 0.0 - 10.0 /100 WBCs. The refer ence range was not u sed to interpret th is result as normal/abnormal . NRBC x10^3 (test code <0.01 See_Comment [Auto mated = 9422326602) message] The s ystem which generated this result transmitted reference range : 10*3/?L. The reference range was not used to interpret this result as normal/abnormal . GRAN MAT (NEUT) % 61.9 % (test code = 770-8) IMM GRAN % (test code 0.30 % = 8026690901) LYMPH % (test code = 26.0 % 736-9) MONO % (test code = 9.5 % 5905-5) EOS % (test code = 1.6 % 713-8) BASO % (test code = 0.7 % 706-2) GRAN MAT x10^3(ANC) 5.91 10*3/uL 1.88-7.09 (test code = 8587424325) IMM GRAN x10^3 (test 0.03 10*3/uL 0.00-0.06 code = 0881060857) LYMPH x10^3 (test code 2.48 10*3/uL 1.32-3.29 = 731-0) MONO x10^3 (test code 0.91 10*3/uL 0.33-0.92 = 742-7) EOS x10^3 (test code = 0.15 10*3/uL 0.03-0.39 711-2) BASO x10^3 (test code 0.07 10*3/uL 0.01-0.07 = 704-7) Lab Interpretation Abnormal (test code = 69612-8) [facility] [id number] 22:24:55 Test Item Value Reference Interpretation Comments Range TROPONIN I (test 0.002 ng/mL See_Comment [Automated code = 4390778335) message] The system which generated this result [...] biotin. Lab Interpretation Normal (test code = 55856-5) [facility]21-[facility] 22:24:34 Test Item Value Reference Range Interpretation Comments [place] (test code = <0.2 0.6-1.2 L 2976712081) PERRY (test code = PERRY) Toxic Range: ? Greater than 1.2 mmol/L Lab Interpretation (test Abnormal code = 69983-0) [facility] METABOLIC PANEL ([id number])2021-09-09 22:13:54 Test Item Value Reference Range Interpretation Comments NA (test code = 139 mmol/L 135-145 5160622151) K (test code = 4.0 mmol/L 3.5-5.0 5545312118) CL (test code = 105 mmol/L 98-108 1227256973) CO2 TOTAL (test code 26 mmol/L 23-31 = 0621622007) AGAP (test code = 2-16 1416899359) BUN (test code = 11 mg/dL 7-23 8203763992) GLUCOSE (test code = 109 mg/dL 70-110 3984038997) CREATININE (test code 0.71 mg/dL 0.50-1.04 = 3178494355) TOTAL BILI (test code 0.6 mg/dL 0.1-1.1 = 8994265968) CALCIUM (test code = 10.4 mg/dL 8.6-10.6 6724857194) T PROTEIN (test code 7.6 g/dL 6.3-8.2 = 4182095654) ALBUMIN (test code = 4.7 g/dL 3.5-5.0 7123806393) ALK PHOS (test code = 78 U/L 34-122 9992568161) ALTv (test code = 19 U/L 5-35 2-6) AST(SGOT) (test code 28 U/L 13-40 = 0616641074) eGFR (test code = mL/min/1.73m2 7070654709) PERRY (test code = PERRY) Association of [...] or urine or abnormalities in imaging tests). [facility] WITH RHOC5764-43-66 22:03:32 Test Item Value Reference Range Interpretation Comments WBC (test code = See_Comment [Automated 6457-2) message] The sy stem which generated this [...] RDW-SD (test code = 40.2 fL 39.0-49.9 14724-1) RDW-CV (test code = 12.9 % 12.0-15.5 788-0) PLT (test code = See_Comment H [Automated 777-3) message] The sy stem which generated this result transmitted reference range : 166 - 358 10*3/ ?L. The reference r katie was not used to interpret this result as normal/abnormal . MPV (test code = 9.4 fL 9.5-12.9 L 69946-0) NRBC/100 WBC (test See_Comment [Automat ed code = 5563053612) message] The system which generated this result transmitted reference range : 0.0 - 10.0 /100 WBCs. The refer ence range was not u sed to interpret th is result as normal/abnormal . NRBC x10^3 (test code <0.01 See_Comment [Auto mated = 7044467509) message] The s ystem which generated this result transmitted reference range : 10*3/?L. The reference range was not used to interpret this result as normal/abnormal . GRAN MAT (NEUT) % 67.1 % (test code = 770-8) IMM GRAN % (test code 1.00 % = 4251304176) LYMPH % (test code = 21.4 % 736-9) MONO % (test code = 7.9 % 5905-5) EOS % (test code = 1.8 % 713-8) BASO % (test code = 0.8 % 706-2) GRAN MAT x10^3(ANC) 7.35 10*3/uL 1.88-7.09 H (test code = 1182524007) IMM GRAN x10^3 (test 0.11 10*3/uL 0.00-0.06 H code = 6554659700) LYMPH x10^3 (test code 2.34 10*3/uL 1.32-3.29 = 731-0) MONO x10^3 (test code 0.86 10*3/uL 0.33-0.92 = 742-7) EOS x10^3 (test code = 0.20 10*3/uL 0.03-0.39 711-2) BASO x10^3 (test code 0.09 10*3/uL 0.01-0.07 H = 704-7) Lab Interpretation Abnormal (test code = 91220-9) [facility]EN[facility] A & B DIRECT OQVVYHM0237-70-28 14:04:00 Test Item Value Reference Range Interpretation Comments Influenza A (test code = 07706-0) Negative Negative Influenza B (test code = 04282-7) Negative Negative Lab Interpretation (test code = Normal 87133-6) [facility]APID TESTING)2020-09-30 14:03:00 Test Item Value Reference Range Interpretation Comments SARS-CoV-2 Rapid ID NOW Not Detected Not Detected (test code = 54393-9) PERRY (test code = PERRY) ID NOW COVID-19 Assay is an isothermal nucleic acid amplification test intended for the qualitative detection of nucleic acid from SARS-CoV-2 viral RNA in nasopharyngeal (VP OUTCOMES) specimens. It is used under Emergency Use [...] indicated. Lab Interpretation Normal (test code = 31629-2) [facility] 13:55:00 Test Item Value Reference Range Interpretation Comments APPEARANCE (test code = Hazy Clear A 6808785814) COLOR (test code = Yellow Yellow 8701001750) PH (test code = 4.8-8.0 7579149969) SP GRAVITY (test code = 1.003-1.030 6299710559) GLU U QUAL (test code = Normal Normal 1628203743) BLOOD (test code = Negative Negative 2105542587) KETONES (test code = 5 mg/dL Negative A 2011606756) PROTEIN (test code = Negative Negative 2887-8) UROBILIN (test code = 2.0 mg/dL Normal A 2181700801) BILIRUBIN (test code = Negative Negative 9103291526) NITRITE (test code = Negative Negative 0668532727) LEUK ROZINA (test code = 25/uL Negative A 3587569964) RBC/HPF (test code = See_Comment [Autom ated message] 9415596161) The system [employer] generated this result transmit ngozi reference range : 0 - 3 HPF. The refe rence range was not u sed to interpret th is result as normal/abnormal . WBC/HPF (test code = See_Comment [Autom ated message] 4437459432) The system [employer] generated this result transmit ngozi reference range : 0 - 5 HPF. The refe rence range was not u sed to interpret th is result as normal/abnormal . BACTERIA (test code = Few Negative A 9612543735) MUCOUS (test code = Slight Negative LPF A 8780841727) SQ EPITH (test code = HPF 7312612139) Lab Interpretation (test Abnormal code = 69197-7) [facility] Center[facility]PR Ezffprrlwqd7574-24-57 16:42:24 Test Item Value Reference Range Interpretation [...] = 10-24-2020 N Expiration Dt) Thyroid Stimulating Xtbtadb8313-85-69 08:35:16 Test Item Value Reference Range Interpretation Comments TSH (test code = TSH) 1.170 mIU/mL 0.270-4.200 Lipid Qkfsy0080-06-70 08:21:19 Test Item Value Reference Range Interpretation [...] calculation is LDL/HDL Ratio=L DL Calc/HDL Chol NXMSOHTSKZEZ8301-90-54 08:24:008.6[facility] IebdretKVSHPCRAKTLB0024-06-85 08:24:71320Uwxfnhlz TopdjdkSTBPWTLQXLPO4493-88-92 08:24:0027[facility] HFYPQIFEBWID1373-61-97 08:24:13759Pilcnufk IhmojesVWKNSNSMAFTE7040-55-99 08:24:003.6[facility] BeosjaqTLXLSBNEMIIH5704-41-70 08:24:000.70[facility] YSYPJREOAPOU6917-99-77 08:24:008.4[facility] VylzmpgSENUCPIUOWMF9718-15-48 08:24:14394Lldyrlhh CyzthiaUIFXYDUTSBKJ4712-41-29 08:24:0086[facility] HQDGQMSYDTOX8207-58-20 08:24:006[facility] WhabdmfADFKUYDAYP0027-47-09 08:24:00 11.6[facility] SbvpoaaFRSSSSIHIS0537-66-03 08:24:003.78[facility]annHEMATOLOGY 2019-01-26 08:24:0013.3[facility] ZiuterbNJGBWEQTIU9842-30-70 08:24:0034.0[facility] OdysbuhIHAYMMTKIB1606-78-35 08:24:006.3[facility] MsntykgIEBWSJTTAB9562-83-53 08:24:00 Test Item Value Reference Range Interpretation Comments MCH (test code = MCH) 30.7 pg 27.0-31.0 [facility] LwnzclaOCRVZOHHMX9563-92-40 08:24:0090.3[facility]annHEMATOLOGY 2019-01-26 08:24:0034.2[facility] LgzgdwlVQWHWVQUEP3446-28-15 08:24:54321Obtxxjbh QobrdsvAKKHNKSKTK7654-52-85 08:24:007.5[facility] ZrhagouFMJAPDKUKQSM9537-92-10 08:24:008.6[facility] NlhqbvoWMWBIWXPGYUT6319-52-57 08:24:28695Xxexnbyt [facility] HYCICMHQWSNQ5685-88-94 08:24:0027[facility] OxgpmtgUSOQZGJIPTFA1454-15-83 08:24:00 139[facility] FkebkeaEGPUOPLNGPCH8430-61-50 08:24:003.6[facility] TMOBHIYWRMKR4378-21-31 08:24:000.70[facility] EmpnjpoKHUJEVIVTJMS0571-43-70 08:24:008.4[facility] VshmsekYJZYIOJLYJAC6255-99-11 08:24:09403Qiiahwuw [facility] OFMCBVUFDQHU1732-37-81 08:24:0086[facility] VtmzftpGSLYWDDHASLQ1532-99-28 08:24:00 6[facility] WamhgwaIIAGADLLYG9564-58-75 08:24:0011.6[facility] HermannHEMATOLOGY 2019-01-26 08:24:003.78[facility] RmukgzxGLMESYWLCL3530-20-26 08:24:0013.3[facility] BmzorhfMPASJBTSMX4730-55-71 08:24:0034.0[facility] ZxbzbgcATKOHJZCPE6622-41-23 08:24:006.3[facility] TonadcwSZASIOZPQI3461-46-36 08:24:00 Test Item Value Reference Range Interpretation Comments MCH (test code = MCH) 30.7 pg 27.0-31.0 [facility] NermvwxEAYXOJJNTV1023-56-28 08:24:0090.3[facility]annHEMATOLOGY 2019-01-26 08:24:0034.2[facility] NmtqvdlQABTQINXHL6062-63-54 08:24:95512Bxxvuule SsuzzvrEFJBHXGEUS7067-80-39 08:24:007.5[facility] HermannCHEM GVYYF2248-25-69 09:14:55011Xcukuriw HermannCHEM KBGMV1250-80-23 09:14:008.5[facility]annCHEM CDFXU0655-75-59 09:14:0013.3[facility]annCHEM MQBHF4095-97-90 09:14:0024 [facility]annCHEM RZERF5775-17-78 09:14:58562Vkiqfdka HermannCHEM PANEL 2019-01-25 09:14:0081[facility]annCHEM YLEUC2789-42-07 09:14:002[facility]annCHEM YOEDZ8098-97-00 09:14:003.3[facility]annCHEM XSODM4771-42-97 09:14:000.60[facility]annCHEM DYDXX9851-34-03 09:14:90750Hajmgoal HermannCHEM MWQHF8497-25-95 09:14:54198Ovmzojst HermannCHEM OLSCK1952-24-91 09:14:008.5 [facility]annCHE[facility] IHBNQ8890-78-49 09:14:0013.3[facility]annCHEM PANEL 2019-01-25 09:14:0024[facility]annCHEM OVLXC5738-49-54 09:14:37623Qumjcjdl HermannCHEM EWBGS7418-74-09 09:14:0081[facility]annCHEM VHQEJ2402-40-01 09:14:002[facility]annCHEM BKYKO9863-93-84 09:14:003.3[facility]annCHEM YWCXQ6693-61-41 09:14:000.60[facility]annCHEM BRUAD7576-92-70 09:14:73750 [facility]annMOLECULAR WWMUMOZPSA8338-32-55 16:22:00Negative (01/23/19 11:22 AM)[facility] HermannMOLECULAR FCEKGQXEJF4879-57-29 16:22:00Negative (01/23/19 11:22 AM)[facility]annCHEM JDBNL4203-92-60 15:42:002.76[facility]annCHEM PANEL 2019-01-23 15:42:002.76[facility]annCHEM YKTJU4348-24-90 12:32:000.9[facility]annCHEM MLAPV6528-01-40 12:32:000.9[facility]annCHEM IZTSA0338-96-21 10:50:002.0[facility]annCHEM SMOKW0830-31-15 10:50:19691Glfwskoe HermannCHEM ZPZRY3988-54-08 10:50:0023[facility]annCHEM YXTHB9336-16-80 10:50:39410 [facility]annCHEM CHOUW3508-66-59 10:50:003.1[facility]annCHEM PANEL 2019-01-23 10:50:23701Gvoklovp HermannCHEM JDTDE7124-41-52 10:50:005[facility]annCHEM IVHFA1459-04-09 10:50:000.50[facility]annCHEM XJAWM2576-14-52 10:50:007.8[facility]annCHEM OKHRF5113-43-65 10:50:0083[facility]annCHEM EOQNF7643-85-11 10:50:0010.1[facility] FljzvzkJIWIQQWCDN8407-61-30 10:50:000.2 [facility] JtckucjLXLJBGRZBI0744-71-40 10:50:000.8[facility]annHEMATOLOGY 2019-01-23 10:50:005.5[facility] CqaimmgKBMIEUBUWL5529-87-27 10:50:002.2[facility] EjigrwfEYGIDZETZT6181-45-87 10:50:000.1[facility] BaycsglOJACTOUDLA7944-21-66 10:50:0063.6[facility] BfdmgaoUSNNKGUALB1795-22-43 10:50:008.9[facility] MVKKJNHKHZ8134-24-39 10:50:002.3[facility] RkrezvkSBGZKXBISQ1361-95-41 10:50:00 Normal (01/23/19 5:50 AM)[facility] HhwpdzeLQWEVMAINK3842-13-53 10:50:00Normal (01/23/19 5:50 AM)[facility] DyctnsxUNSKTJVCIJ5995-03-21 10:50:0025.1[facility] PspgynxJXANGCEWTS8035-88-37 10:50:0013.1[facility] VjqqjvwVCUSHAVMSB3742-08-06 10:50:46429Hxvvewhw QxaxgrpDGSRAUONMI7270-79-73 10:50:007.7[facility] OEABNKYUFP1878-44-85 10:50:008.6[facility] YwjqjeeSUQRFXYWLT7438-30-65 10:50:00 10.0[facility] RladcusNWQCPYBFTN9037-13-59 10:50:0034.[facility] HermannHEMATOLOGY 2019-01-23 10:50:0028.7[facility] BaiqiufGCPXSJOKGB0279-76-12 10:50:0087.8[facility] MckabvgYVLHKPREUU0302-21-16 10:50:00 Test Item Value Reference Range Interpretation Comments MCH (test code = MCH) 30.4 pg 27.0-31.0 [facility] EbyxcqrZIPJXKVPAE1070-52-38 10:50:003.27[facility]annHEMATOLOGY 2019-01-23 10:50:83813Bbyoxnrk SfbkegaVPEERYIDVH8141-83-23 10:50:007.7[facility] MchpqvyHVTRSOKUFN0496-33-89 10:50:008.[facility] JdulkquUAJCGUCUES9566-35-10 10:50:0010.0[facility] SnjoygkMNDLEAYYXU8867-54-23 10:50:0034.[facility] MPLVDYWIYG1577-71-53 10:50:0028.7[facility] YddmwuhPJBEFHEEZD4503-00-16 10:50:00 87.8[facility] HpqffvoXWVMCMLLAU0240-30-64 10:50:00 Test Item Value Reference Range Interpretation Comments MCH (test code = MCH) 30.4 pg 27.0-31.0 [facility] BhjotbbLLVWHDFUBA0396-79-86 10:50:003.27[facility] HermannCHEM PANEL 2019-01-23 10:50:002.0[facility] HermannCHEM WONDE9678-16-10 10:50:77982Bsobrjlh HermannCHEM NVCRP5268-04-32 10:50:0023[facility] HermannCHEM AUARH5623-53-42 10:50:58006Vpcfqhpb [facility]annCHEM YKZPQ1292-78-40 10:50:003.1[facility]annCHEM NNGPR2767-32-19 10:50:54771Zlgqnadb HermannCHEM UQSYB1723-43-50 10:50:005 [facility]annCHEM PKGCL5365-94-66 10:50:000.50[facility]annCHEM PANEL 2019-01-23 10:50:007.8[facility]annCHEM VRHSB0138-08-34 10:50:0083[facility]annCHEM KCKHO3967-78-15 10:50:0010.1[facility] DknzpeaKLMLXGOEGI2977-52-25 10:50:000.2[facility] IsnfvpwHQYJNDKEMD2427-36-11 10:50:000.8[facility] YDAFUCQZRQ9966-62-00 10:50:005.5[facility] TlrawlmXNSPWEPOGL7026-98-17 10:50:002.2 [facility] HtlfcgwIOATUQHVKM5237-47-84 10:50:000.1[facility]annHEMATOLOGY 2019-01-23 10:50:0063.6[facility] UujjjuhGJMASETNLQ9977-68-24 10:50:008.9[facility] WhmxuftMILEGTCOCC8117-61-26 10:50:002.3[facility] FuikugzNMJTBGJHAD4570-02-97 10:50:00Normal (01/23/19 5:50 AM)[facility] GylfpbrRIUAIWMKMO2809-89-36 10:50:00 Normal (01/23/19 5:50 AM)[facility] VyqccgfRKLZDWWOIC5440-00-45 10:50:0025.1[facility] YzafguzMANOXOHXBP5678-16-06 10:50:0013.1[facility] HermannCHEM CGRNT0234-79-32 11:32:002.4[facility]annCHEM ZSKCU6844-85-48 11:32:002.4[facility] HermannCHEM JNILG4217-99-78 09:04:003.0[facility]annCHEM INOGU4080-47-11 09:04:003.0 [facility]UR[facility] AND HPQHW0564-36-86 07:14:00 Test Item Value Reference Range Interpretation Comments UA Spec Grav (test code = UA Spec 1.014 1 Grav) [facility] XLWBJ3465-99-34 07:14:00 Test Item Value Reference Range Interpretation Comments UA pH (test code = UA pH) 6.0 1 5.0-8.0 [facility] YHRLP8701-03-81 07:14:00Negative (01/22/19 2:14 AM) [facility] AJBVZ8448-92-38 07:14:00Negative *NA*(01/22/19 2:14 AM) [facility] XLZLD0062-15-45 07:14:00Negative *NA*(01/22/19 2:14 AM) [facility] IDNMR8178-46-30 07:14:00Negative *NA*(01/22/19 2:14 AM) [facility] JBKKF4948-78-10 07:14:00Negative (01/22/19 2:14 AM) [facility] ZBHVX2701-49-59 07:14:00Negative (01/22/19 2:14 AM) [facility] PSJIA6322-13-28 07:14:00Negative (01/22/19 2:14 AM) [facility] JTTRS8243-08-37 07:14:00<1[facility] EREHL0587-82-14 07:14:0025[facility] BQCZN9270-89-90 07:14:002 [facility] YQMFB2596-48-56 07:14:00Light Yellow *NA*(01/22/19 2:14 AM)[facility] QZMEL9100-35-72 07:14:00Clear (01/22/19 2:14 AM) [facility] CTUUM0950-26-36 07:14:00 Test Item Value Reference Range Interpretation Comments UA Spec Grav (test code = UA Spec 1.014 1 Grav) [facility] TOHIF7498-73-09 07:14:00 Test Item Value Reference Range Interpretation Comments UA pH (test code = UA pH) 6.0 1 5.0-8.0 [facility] UZCJC7356-87-37 07:14:00Negative (01/22/19 2:14 AM) [facility] RYNWL5523-69-20 07:14:00Negative *NA*(01/22/19 2:14 AM) [facility] RTZVV5677-91-83 07:14:00Negative *NA*(01/22/19 2:14 AM) [facility] BYKRD7745-03-80 07:14:00Negative *NA*(01/22/19 2:14 AM) [facility] NZGHS0083-43-45 07:14:00Negative (01/22/19 2:14 AM) [facility] GHNFN2031-60-33 07:14:00Negative (01/22/19 2:14 AM) [facility] DQMPT6943-32-80 07:14:00Negative (01/22/19 2:14 AM) [facility] NGANT8225-16-76 07:14:00<1[facility] UIIBD6120-70-72 07:14:0025[facility] MOTGY2952-91-70 07:14:002 [facility] UELFO7853-00-78 07:14:00Light Yellow *NA*(01/22/19 2:14 AM)[facility] CPSBK4239-35-28 07:14:00Clear (01/22/19 2:14 AM) [facility] XkjfimgSMAPB1023-12-40 05:16:000.90[facility] RdvvrnmQLDXC0439-61-92 05:16:000.90[facility] HfgqyftTMQYWKJPEP1173-70-31 05:01:000.1[facility] MALYSLRJYH7392-50-32 05:01:000.7[facility] EoruzezWVZXSDJOCT3394-72-78 05:01:000.0 [facility] BtktuydLVIKDPCIWZ5991-15-19 05:01:000.0[facility]annHEMATOLOGY 2019-01-22 05:01:000.9[facility] MjkkeovGIKTOEBSDZ8347-63-29 05:01:008.6[facility] CklnrrkXRTDZXGMJB3466-11-21 05:01:000.6[facility] IcbayobMWESBYDKNJ3664-55-95 05:01:0086.5[facility] HabaeqiYWDVYYPZKN4003-85-44 05:01:005.7[facility] VBAEFUXPCW2360-15-29 05:01:006.9[facility] MmoepewJDKXDHYENI9073-84-29 05:01:009.9 [facility] SvbmeszGUJKXUQHQI2933-63-98 05:01:0032.8[facility]annHEMATOLOGY 2019-01-22 05:01:0013.6[facility] FhzfounUXBSXKGNUJ2256-99-40 05:01:18852Ldvveghr JifkjzcDFQIWFQZXM8951-48-61 05:01:007.3[facility] KoubusyUYLPKKJWON2861-67-15 05:01:0014.0[facility] NgkbwliMANGIPWOOI4496-70-38 05:01:004.85[facility] CBDIPEBGNF6374-47-88 05:01:0042.7[facility] UjtqhanNSQINCGYPJ9153-69-11 05:01:00 Test Item Value Reference Range Interpretation Comments MCH (test code = MCH) 29.0 pg 27.0-31.0 [facility] HpepgqcLYXXGBZJUH1050-94-64 05:01:0088.2[facility]annHEMATOLOGY 2019-01-22 05:01:00 Test Item Value Reference Range Interpretation Comments INR (test code = INR) 0.96 1 0.85-1.17 [facility] ByyuvnoWVDGQMOODG0175-59-28 05:01:00 Test Item Value Reference Range Interpretation Comments PT (test code = PT) 12.6 s 12.0-14.7 [facility] ZomggufXHDTOLNKDJ8547-07-16 05:01:00 Test Item Value Reference Range Interpretation Comments PTT (test code = PTT) 25.9 s 22.9-35.8 [facility] QYGLJLI5763[facility]97-23 05:01:00Negative (01/22/19 12:01 AM) [facility]annCARDIAC NCJRLEE0733-78-28 05:01:00<0.02[facility] CARDIAC CGNAOXM6778-25-24 05:01:0049[facility] HermannCHEM UBTVK4242-87-95 05:01:000.6[facility] HermannCHEM MUMUM7567-68-16 05:01:36925Zvuvkrss HermannCHEM ZUMTR0259-02-57 05:01:004.0[facility]annCHEM OFKOI4833-62-45 05:01:0017 [facility]annCHEM VBOKO3049-45-84 05:01:0025[facility]annCHEM PANEL 2019-01-22 05:01:008.1[facility]annCHEM GHVSY0714-97-32 05:01:00 Test Item Value Reference Range Interpretation Comments B/C Ratio (test code = B/C Ratio) 20 1 6-25 [facility]annCHE[facility] MAJGY0007-58-47 05:01:00 Test Item Value Reference Range Interpretation Comments A/G Ratio (test code = A/G Ratio) 1.0 1 0.7-1.6 [facility]annCHEM IQEWP7626-44-95 05:01:004.1[facility]annCHEM PANEL 2019-01-22 05:01:006.90[facility] SjbvmswRELBSYDZAJTDG2334-05-39 05:01:00Negative *NA*(01/22/19 12:01 AM)[facility] NfzyfxzVDRGHIHSDJ8201-34-70 05:01:000.1[facility] UceiiuyVRLAZATQRX9891-19-74 05:01:000.7[facility] NkmfcqiDTHWSEBHAW1374-96-06 05:01:000.0[facility] DeflkraJEQYWYCRTE1669-40-99 05:01:000.0[facility] TXSTUVSIZR5761-91-92 05:01:000.9[facility] AkbiljvZHZYMNRLQU4271-63-86 05:01:008.6 [facility] TmncfwhVDMXHOOAYZ1265-39-16 05:01:000.6[facility]annHEMATOLOGY 2019-01-22 05:01:0086.5[facility] DsrjzvfUDEGEIKILE9686-16-33 05:01:005.7[facility] HabcsntLKJTXIUEJJ1848-17-80 05:01:006.9[facility] PxdktncBJMAHHSJOQ2340-51-52 05:01:009.9[facility] FbbksfrWXJWXYVLGB3366-26-76 05:01:0032.8[facility] PPOWAHPPGY9181-53-37 05:01:0013.6[facility] WojlmzeOMFZNPUKHY4706-20-24 05:01:00 443[facility] RacllwvUCDIWMYLNP6851-59-87 05:01:007.3[facility]annHEMATOLOGY 2019-01-22 05:01:0014.0[facility] EuiecumIWRRMDYKME2049-89-88 05:01:004.85[facility] AzfmpqjNCIGHEKZPW5208-80-48 05:01:0042.7[facility] XjvoidiKKOYUPRRLT5282-45-45 05:01:00 Test Item Value Reference Range Interpretation Comments MCH (test code = MCH) 29.0 pg 27.0-31.0 [facility] GhsukciNJKHRBKHPI9854-50-10 05:01:0088.2[facility]annHEMATOLOGY 2019-01-22 05:01:00 Test Item Value Reference Range Interpretation Comments INR (test code = INR) 0.96 1 0.85-1.17 [facility] RoiwpssVSGUDLBWGS3845-53-13 05:01:00 Test Item Value Reference Range Interpretation Comments PT (test code = PT) 12.6 s 12.0-14.7 [facility]QymjjoeLORCXKIMFW7377-72-44 05:01:00 Test Item Value Reference Range Interpretation Comments PTT (test code = PTT) 25.9 s 22.9-35.8 [facility] NAMJYMH5163-57-62 05:01:00Negative (01/22/19 12:01 AM) [facility] HermannCARDIAC ZCAAKUQ1446-11-14 05:01:00<0.02[facility] CARDIAC AMJQELK7734-07-96 05:01:0049[facility] HermannCHEM QEHXJ9878-06-08 05:01:000.6[facility] HermannCHEM OJMGA2997-87-49 05:01:77230Xkqysnhc HermannCHEM FYNGQ1752-33-14 05:01:004.0[facility] HermannCHEM CEVWD8053-71-29 05:01:0017 [facility]annCHEM GRDRE8226-67-02 05:01:0025[facility]annCHEM PANEL 2019-01-22 05:01:008.1[facility] HermannCHEM NYKFJ8880-87-13 05:01:00 Test Item Value Reference Range Interpretation Comments B/C Ratio (test code = B/C Ratio) 20 1 6-25 [facility] HermannCHEM [id number] 05:01:00 Test Item Value Reference Range Interpretation Comments A/G Ratio (test code = A/G Ratio) 1.0 1 0.7-1.6 [facility] HermannCHEM [id number] 05:01:004.1[facility]annCHEM PANEL 2019-01-22 05:01:006.90[facility] [id number] 05:01:00Negative *NA*(01/22/19 12:01 AM)[id number] 14:36:00 Test Item Value Reference Range Interpretation [...] Benzodiazepine (test Negative Negative N code = FNIA) Cocaine (test code = Negative Negative N COCA) Methadone (test code Negative Negative N = MTHD) Opiates (test code = Negative Negative N OPIA) PCP (test code = PCP) Negative Negative N Propoxyphene (test Negative Negative N code = PROPOX) THC (test code = THC) Negative Negative N Alcohol, Urine (test <0.01 g/dL 0.00-0.01 N code = ETOHU) Comprehensive Metabolic [id number] 14:36:00 Test Item Value Reference Range Interpretation [...] the [employer],http :[email or web address] ep.nih.gov Urinalysis [id number] 14:32:00 Test Item Value Reference Range Interpretation Comments Color (test code = COLOR) Yellow Yellow,Straw,Pl N yellow Clarity (test code = Clear Clear N CLAR) Specific [place] (test 1.024 1.001-1.035 N code = SPGR) [...] code = Few /HPF BACT) CBC with [id number] 14:21:00 Test Item Value Reference Range Interpretation [...] code = ALYMPH) 3.0 K/cumm 0.5-4.6 N [place] Abs (test code = AMONO) 0.5 K/cumm 0.0-1.2 N Eos Abs (test code = AEOS) 0.19 K/cumm 0.00-0.74 N Baso Abs (test code = ABASO) 0.1 K/cumm 0.00-0.21 N
--- NOTE | 2021-09-20 18:13 | ER ---
Nurse's Notes [facility] Name: Tiffany Quinn Age: 51 yrs Sex: Female : 1970 Arrival Date: 09/20/2021 Time: 16:50 Bed Waiting Private MD: Andrea Angel Diagnosis: Nausea Presentation: 09/20 17:51 Chief complaint: Patient states: nausea. Coronavirus screen: Client denies travel out of the [place] in the last 14 days. Ebola Screen: Patient denies exposure to infectious person. Patient denies travel to an Ebola-affected area in the 21 days before illness onset. Initial Sepsis Screen: Does the patient meet any 2 criteria? No. Patient's initial sepsis screen is negative. Does the patient have a suspected source of infection? No. Patient's initial sepsis screen is negative. Risk Assessment: Do you want to hurt yourself or someone else? Patient reports no desire to harm self or others. Onset of symptoms was September 20, 2021. 17:51 Method Of Arrival: Ambulatory ss 17:51 Acuity: MANUEL 5 ss Historical: - Allergies: 17:51 Pepcid; ss 17:51 Toradol; ss - PMHx: 17:51 ADD; Anxiety; Bipolar disorder; ss - Immunization history:: Client reports receiving the 2nd dose of the Covid vaccine. - Social history:: Smoking status: Patient denies any tobacco usage or history of. Screenin:39 Abuse screen: Denies threats or abuse. Denies injuries from another. Nutritional ss screening: No deficits noted. Tuberculosis screening: Never had TB. Fall Risk None identified. Assessment: 19:39 Reassessment: Pt drinking water while waiting in ER lobby. ss 19:39 Reassessment: Patient appears in no apparent distress at this time. Patient and/or ss family updated on plan of care and expected duration. Pain level reassessed. Patient is alert, oriented x 3, equal unlabored respirations, skin warm/dry/pink. Patient states feeling better. Patient states symptoms have improved. Neuro: Level of Consciousness is awake, alert. Vital Signs: 17:51 BP 138 / 98; Pulse 100; Resp 20; Temp 97.0(TE); Pulse Ox 100% ; Weight 71.21 kg; Height ss 5 ft. 3 in. (160.02 cm); Pain 0/10; 17:51 Body Mass Index 27.81 (71.21 kg, 160.02 cm) ED Course: 16:50 Patient arrived in ED. mr 16:51 Andrea Angel MD is Private Physician. mr 17:51 Triage completed. ss 17:51 Arm band placed on left wrist. ss 17:54 Bill Hay PA is PHCP. cp 17:54 Bill Palm MD is Attending Physician. cp 19:39 Patient has correct armband on for positive identification. ss 19:39 No provider procedures requiring assistance completed. Patient did not have IV access ss during this emergency room visit. Administered Medications: 19:39 Not Given (Pt states she will just take one when she fills her prescription. ): ss Phenergan (promethazine) 25 mg PO once Outcome: 18:12 Discharge ordered by MD. cp 19:39 Discharged to home ambulatory. ss 19:39 Condition: good 19:39 Discharge instructions given to patient, Instructed on discharge instructions, follow up and referral plans. medication usage, Demonstrated understanding of instructions, follow-up care, medications, Prescriptions given X 1. 19:40 Patient left the ED. ss Signatures: Malik Vinita MelendezPreethi, RN RN Bill Hay PA PA cp Corrections: (The following items were deleted from the chart) 19:39 19:39 Patient has correct armband on for positive identification. Bed in low position. ss Call light in reach. ss
--- NOTE | 2021-09-20 18:13 | EDPHYS ---
Physician Documentation [facility] Name: Tiffany Quinn Age: 51 yrs Sex: Female : 1970 Arrival Date: 09/20/2021 Time: 16:50 Bed Waiting Private MD: Andrea Angel ED Physician Bill Palm HPI: 09/20 17:54 This 51 yrs old Female presents to ER via Ambulatory with complaints of Nausea. cp 17:54 The patient presents to the emergency department with nausea, that is mild. Onset: The cp symptoms/episode began/occurred today. Possible causes: unknown. Associated signs and symptoms: Pertinent negatives: abdominal pain, constipation, diarrhea, vomiting, chest pain. Severity of symptoms: in the emergency department the symptoms are unchanged despite home interventions. Historical: - Allergies: 17:51 Pepcid; ss 17:51 Toradol; ss - PMHx: 17:51 ADD; Anxiety; Bipolar disorder; ss - Immunization history:: Client reports receiving the 2nd dose of the Covid vaccine. - Social history:: Smoking status: Patient denies any tobacco usage or history of. ROS: 17:56 Eyes: Negative for injury, pain, redness, and discharge. cp 17:56 Constitutional: Negative for fever. 17:56 ENT: Negative for ear pain, sore throat, difficulty swallowing, difficulty handling secretions. 17:56 Cardiovascular: Negative for chest pain, edema, palpitations. 17:56 Respiratory: Negative for cough, shortness of breath, wheezing. 17:56 Abdomen/GI: Positive for nausea, Negative for abdominal pain, vomiting, diarrhea, constipation. 17:56 Neuro: Negative for altered mental status, headache, syncope, weakness. 17:56 All other systems are negative. Exam: 17:57 Head/Face: Normocephalic, atraumatic. cp 17:57 Constitutional: The patient appears in no acute distress, alert, awake, non-diaphoretic, non-toxic, well developed, well nourished. 17:57 Eyes: Periorbital structures: appear normal, Pupils: equal, round, and reactive to light and accomodation, Extraocular movements: intact throughout, Conjunctiva: normal, no exudate, no injection, Sclera: no appreciated abnormality, Lids and lashes: appear normal, bilaterally. 17:57 ENT: External ear(s): are unremarkable, Nose: is normal, Mouth: Lips: moist, Oral mucosa: moist, Posterior pharynx: Airway: no evidence of obstruction, patent. 17:57 Chest/axilla: Inspection: normal. 17:57 Cardiovascular: Rate: tachycardic, Rhythm: regular, Edema: is not appreciated, JVD: is not appreciated. 17:57 Respiratory: the patient does not display signs of respiratory distress, Respirations: normal, no use of accessory muscles, no retractions, labored breathing, is not present, Breath sounds: are clear throughout, no decreased breath sounds, no stridor, no wheezing. 17:57 Abdomen/GI: Exam negative for discomfort, distension, guarding, Inspection: abdomen appears normal. 17:57 Neuro: Orientation: to person, place \T\ time. Mentation: able to follow commands, Motor: moves all fours, strength is normal, Gait: is steady, at a normal pace, without difficulty. Vital Signs: 17:51 BP 138 / 98; Pulse 100; Resp 20; Temp 97.0(TE); Pulse Ox 100% ; Weight 71.21 kg; Height ss 5 ft. 3 in. (160.02 cm); Pain 0/10; 17:51 Body Mass Index 27.81 (71.21 kg, 160.02 cm) ss MDM: 18:11 Data reviewed: vital signs, nurses notes, and as a result, I will discharge patient. cp Counseling: I had a detailed discussion with the patient and/or guardian regarding: the historical points, exam findings, and any diagnostic results supporting the discharge/admit diagnosis, to return to the emergency department if symptoms worsen or persist or if there are any questions or concerns that arise at home. 18:12 Patient medically screened. cp 09/20 17:57 Order name: PO challenge; Complete Time: 19:38 cp Administered Medications: 19:39 Not Given (Pt states she will just take one when she fills her prescription. ): ss Phenergan (promethazine) 25 mg PO once Disposition: 09/21 09:16 Co-signature as Attending Physician, Bill Palm MD I agree with the assessment and jo plan of care. Disposition Summary: 09/20/21 18:12 Discharge Ordered Location: Home cp Problem: new cp Symptoms: have improved cp Condition: Stable cp Diagnosis - Nausea cp Followup: cp - With: Private Physician - When: 1 - 2 days - Reason: Recheck today's complaints Discharge Instructions: - Discharge Summary Sheet cp - Nausea, Adult cp Forms: - Medication Reconciliation Form cp - Thank You Letter cp - Antibiotic Education cp - Prescription Opioid Use cp Prescriptions: - promethazine 25 mg Oral Tablet - take 1 tablet by ORAL route every 6 hours As needed; 20 tablet; Refills: 0, cp Product Selection Permitted Signatures: Bill Palm MD MD cha Smirch, Shelby, RN RN ss Bill Hay PA PA cp
[2021-09-20 19:55] VITALS: BP 138/98; TEMP 97; O2SAT 100
== END 2021-09-20 19:40 | disposition home or self-care (01) ==
LOC: ER 16:47
DX: R11.0 Nausea (principal); Z88.5 Allergy status to narcotic agent; Z88.8 Allergy status to other drugs, medicaments and biological substances
CPT/HCPCS: 99282

== ENCOUNTER 2021-09-22 12:44 | Emergency (ER) | payer OTHER ==
--- OUTSIDE RECORDS SUMMARY | 2021-09-22 12:52 | XMS REPORT | Continuity of Care Document ---
:1970 Author Organization [facility] t Address [address] [place] [address] Care Team Providers Name Role Phone UNKNOWN [...] Policy Number Effective Date Expiration Date S [facility] OF [place] - [id number] 2020 [employer] 00:00:00 (MEDICARE REPLACEMENT/ADVANT AGE - HMO) Problems Condition Condition Condition Status Onset Resolution Last Treating Co mments Source Name Details Category Date Date Treatment Clinician Date LOW PB Diagnosis Active 2019-01-22 Mem oria 01-21 01:52:00 l LOW PB 00:00: [place] 00 Active 01/21/2019 [place] INFECTIOUS Diagnosis Active 2019-02-06 Memoria GASTROENTE 01-21 08:58:00 l RITIS AND 00:00: [place] COLITIS INFECTIOUS 00 GASTROENTE RITIS AND COLITIS Active 01/21/2019 [facility] Irregular Irregular Disease Active Uni vers menstrual menstrual 8-15 ity of cycle cycle 00:00: [address] Skin Skin Disease Active Univers lesion lesion 8-15 ity of 00:00: [address] Psychiatri Psychiatri Disease Active U nivers c disorder c disorder 8-15 it y of 00:00: [address] Well woman Well woman Disease Active U nivers exam with exam with 8-15 ity of routine routine 00:00: [place] gynecologi gynecologi 00 Me dical nicky exam nicky exam Branch INFECTIOUS Diagnosis Active 2019-02-06 Memoria GASTROENTE 08:58:00 l RITIS AND Yonis COLITIS, INFECTIOUS GASTROENTE RITIS AND COLITIS, Active [facility] Allergies, Adverse Reactions, Alerts Allergy Allergy Status Severity Reaction(s) Onset Inactive Treating Comm ents Source Name Type Date Date Clinician NO KNOWN Drug Active Univers ALLERGIE Class ity of S [facility] Phenerga Phenerga Active [place] winif[place] Social History Social Habit Start Date Stop Date Quantity Comments Source History of Cigarette Smoker Universi ty of tobacco use [facility] Tobacco Comment 2-3 cigs a day [facility] Exposure to Not sure [place] of SARS-CoV-2 [facility] (event) [place] Tobacco use and 2016-06-08 2016-06-[address] [facility] exposure 00:00:00 00:00:00 [facility] Alcohol intake 2016-06-08 2016-06-08 0 /d University of 00:00:00 00:00:00 [facility] Sex Assigned At [birth year] Universit y of 00:00:00 00:00:00 [facility] Smoking Status Start Date Stop Date Source Social History 2019-01-22 05:00:12 [facility] Her urena Current some day smoker 2016-06-08 00:00:00 [facility] Medications Ordered Filled Start Stop Current Ordering Indication Dosage Frequency Signature Comments Components Source Medication Medication Date Date Medication? Clinician (SIG) Name Name cefTRIAXone 2020-10- No 1000mg 1,000 mg, Univers (ROCEPHIN) 17 11-17 IV ity of 1,000 mg in 08:30: 08:01 [place], [place] NaCl 0.9% 00 :00 ONCE, 1 [...] 09/09/21 at 2330, RANDA amoxicillin 2020-10 Yes [id number] 500mg Take 1 Univers 500 mg 11-10 capsule by ity of capsule 00:00: mouth 3 [place] 00 (three) Medical times Branch daily. ondansetron 2019-10- No 4mg 4 mg, [facility] ers (ZOFRAN-ODT 12-01 Oral, ity of ) 15:15: 14:16 ONCE, 1 [place] disintegrat 00 :00 dose, Mon Med ical ing tablet 09/30/20 at [facility] 4 mg 0915, Routine ondansetron 2019-10- No 4mg 4 mg, [facility] ers (ZOFRAN-ODT 12-01- Oral, ity of ) 14:30: 13:32 ONCE, 1 [place] disintegrat 00 :00 dose, Mon Med ical ing tablet 09/30/20 at [facility] 4 mg 0830, Routine ondansetron 2019-10 Yes [id number] 4mg Take 1 Univers 4 mg 2-07 tablet by ity of disintegrat 00:00: mouth [place] ing tablet 00 every 8 Medica l (eight) Branch hours as needed for Nausea and Vomiting (N/V). ondansetron 2019-10 Yes [id number] 4mg Take 1 Univers 4 mg 2-07 tablet by ity of disintegrat 00:00: mouth [place] ing tablet 00 every 8 Medica l (eight) Branch hours as needed for Nausea and Vomiting (N/V). ondansetron 2019-10 Yes [id number] 4mg Take 1 Univers 4 mg 2-07 tablet by ity of disintegrat 00:00: mouth [place] ing tablet 00 every 8 Medica l (eight) Branch hours as needed for Nausea and Vomiting (N/V). ondansetron 2019-10 Yes [id number] 4mg Take 1 Univers 4 mg 2-07 tablet by ity of disintegrat 00:00: mouth [place] ing tablet 00 every 8 Medica l (eight) Branch hours as needed for Nausea and Vomiting (N/V). ciprofloxac 2019 Yes 500 mg = 1 Memoria in 500 mg 4-04 tab, PO, l oral tablet 17:35: [id number], X [place] 00 4 day, # 8 [...] 4-04 tab, PO, l oral tablet 17:35: [id number], X [place] 00 4 day, # 8 tab, 0 [...] 4-03 (Same as: l 13:26: K-Dur 20) [place] "Do Not Crush" Give with food and [...] moria 402 Route: PO, l 14:00: QAM, [place] 00 Dosing Weight 75, kg, Start date: [...] Memoria 4- (Same as: l 15:00: Flagyl) [place] 00 Take with food/ avoid alcohol Cipro No Notes: February Memori a 4- interfere l 15:00: w/enteral [place] 00 feedings - Take 1 hr before [...] PO, ONCE, l mEq oral 14:20: 0 [place] tablet, 00 Refill(s) extended release Metronidazo No 500 mg, Mem oria le 500 MG 4-01 PO, l Oral Tablet 14:20: [id number], 0 [place] [Flagyl] 00 Refill(s) Ciprofloxac No 500 mg, Mem oria in 500 MG 01 PO, l Oral Tablet 14:20: [id number], 0 [place] [Cipro] 00 Refill(s) potassium Yes 40 mEq, Memor ia chloride 20 -01 PO, ONCE, l mEq oral 14:20: 0 [place] tablet, 00 Refill(s) extended release Metronidazo No 500 mg, Mem oria le 500 MG 4-01 PO, l Oral Tablet 14:20: [id number], 0 [place] [Flagyl] 00 Refill(s) Ciprofloxac No 500 mg, Mem oria in 500 MG 4-01 PO, l Oral Tablet 14:20: [id number], 0 [place] [Cipro] 00 Refill(s) Potassium No [...] tab, PO, l Tablet 21:08: BID, 0 [place] [Risperdal] 00 Refill(s) Strattera Yes 0.5 mg/kg, [...] tab, PO, l Tablet 21:08: BID, 0 [place] [Risperdal] 00 Refill(s) Zosyn No Notes: Memoria [...] oria 3-31 to exceed l 15:03: 400mg/day. [place] 00 (Same As: Ultram) Tramadol No Notes: [...] 01-22 Route: IM, l 09:47: Drug form: [place] 00 PDR/INJ, PRN, Dosing Weight 75.994, kg, [...] 01-22 Route: IM, l 09:47: Drug form: [place] PDR/INJ, PRN, Dosing Weight 75.994, kg, PRN Blood Glucose Results, Start date: 01/22/19 4:47:00 CDT, Duration: 30 day, Stop date: 02/21/19 4:46:00 CDT Dextrose 2018- No 12.5 gm, Memor ia 50% Syringe 3-31 25 mL, l 09:47: Route: [place] 00 IVP, Drug Form: INJ, Dosing Weight [...] moria IV 3-31 1,000 l 08:52: ml/hr, [place] 00 Infuse Over: 1 hr, Route: IV, [...] 0.9% 3-31 Same as: l 04:52: BD [place] Posiflush Sterile NS (Bolus) No 1,000 mL, Me moria IV 3-31 1,000 l 04:51: ml/hr, [place] 00 Infuse Over: 1 hr, Route: IV, 1,000, Drug form: INJ, ONCE, Priority: STAT, Dosing Weight 75.994 kg, Start date: 01/21/19 23:51:00 CDT, Stop date: 01/21/19 23:51:00 CDT NS (Bolus) No 1,000 mL, Me moria IV 01-22 1,000 l 04:51: ml/hr, [place] 00 Infuse Over: 1 hr, Route: IV, [...] HYDROBROMID 8-15 mouth. ity of E 19:02: [place] (CITALOPRAM 27 Medical ORAL) Branch ibuprofen 2016-0 Yes 200mg Take 200 Uni vers (ADVIL) 200 8-15 mg by ity of mg tablet 14:02: mouth [place] [address] every 6 Medical (six) Branch hours as needed. CLONAZEPAM 2016-0 Yes Take by Uni vers (KLONOPIN 8-15 mouth. ity of ORAL) 14:02: [address] Branch CITALOPRAM 2016-0 Yes Take by Uni vers HYDROBROMID 8-15 mouth. ity of E 14:02: [place] (CITALOPRAM 27 Medical ORAL) Branch ibuprofen 2016-0 Yes 200mg Take 200 Uni vers (ADVIL) 200 8-15 mg by ity of mg tablet 14:02: mouth [place] [address] every 6 Medical (six) Branch hours as needed. CLONAZEPAM 2016-0 Yes Take by Uni vers (KLONOPIN 8-15 mouth. ity of ORAL) 14:02: [address] Branch CITALOPRAM 2016-0 Yes Take by Uni vers HYDROBROMID 8-15 mouth. ity of E 14:02: [place] (CITALOPRAM 27 Medical ORAL) Branch ibuprofen 2016-0 Yes 200mg Take 200 Uni vers (ADVIL) 200 8-15 mg by ity of mg tablet 14:02: mouth [place] [address] every 6 Medical (six) Branch hours as needed. CLONAZEPAM 2016-0 Yes Take by Uni vers (KLONOPIN 8-15 mouth. ity of ORAL) 14:02: [place] [address] Medical Branch CITALOPRAM 2016-0 Yes Take by Uni vers HYDROBROMID 8-15 mouth. ity of E 14:02: [place] (CITALOPRAM 27 Medical ORAL) Branch misoprostol 2016-0 [...] H it y of en-caff 00:00: PRN. [place] (ESGIC) 00 Medical 50-325-40 Branch mg tablet butalbital- 2015-0 Yes TK 1 TO 2 U nivers acetaminoph 8-01 T PO Q 8 H it y of en-caff 00:00: PRN. [place] (ESGIC) 00 Medical 50-325-40 Branch mg tablet butalbital- 2015-0 Yes TK 1 TO 2 U nivers acetaminoph 8-01 T PO Q 8 H it y of en-caff 00:00: PRN. [place] (ESGIC) 00 Medical 50-325-40 Branch mg tablet butalbital- 2016-0 Yes TK 1 TO 2 U nivers acetaminoph 8-01 T PO Q 8 H it y of en-caff 00:00: PRN. [place] (ESGIC) 00 Medical 50-325-40 Branch mg tablet dextroamphe 0 Yes TK 1 T PO U nivers tamine-amph 7-20 BID. ity of etamine 00:00: [place] (ADDERALL) 00 Medical 20 mg Branch tablet dextroamphe Yes TK 1 T PO U nivers tamine-amph 7-20 BID. ity of etamine 00:00: [place] (ADDERALL) 00 Medical 20 mg Branch tablet dextroamphe Yes TK 1 T PO U nivers tamine-amph 7-20 BID. ity of etamine 00:00: [place] (ADDERALL) 00 Medical 20 mg Branch tablet [...] 2021-09-10 08:01:00 138 mm[Hg] Univer sity of [facility] Diastolic blood 2021-09-10 08:01:00 97 mm[Hg] Unive rsity of [facility] Heart rate 2021-09-10 08:01:00 87 /min [facility] Respiratory rate 2021-09-10 08:01:00 20 /min [facility] Oxygen saturation in 2021-09-10 08:01:00 98 /min University of Arterial blood by [place] [employer] [facility] Pulse oximetry Branch Body temperature 2021-09-10 04:28:51 37.17 Ruthann [facility] Body height 2021-09-10 04:26:00 154.9 cm [facility] Body weight 2021-09-10 04:26:00 81.647 kg [facility] BMI 2021-09-10 04:26:00 34.01 kg/m2 [facility] Systolic blood 2021-09-09 20:06:00 150 mm[Hg] Univer sity of [facility] Diastolic blood 2021-09-09 20:06:00 89 mm[Hg] Unive rsity of [facility] Heart rate 2021-09-09 20:06:00 108 /min [facility] Body temperature 2021-09-09 20:06:00 37.22 Ruthann [facility] Respiratory rate 2021-09-09 20:06:00 18 /min Univ [facility] Oxygen saturation in 2021-09-09 20:06:00 99 /min University of Arterial blood by [employer] nicky Pulse oximetry Branch Body weight 2021-09-09 20:05:00 81.647 kg Universi ty of [place] [facility] BMI 2021-09-09 20:05:00 32.40 kg/m2 Universi ty [facility] [place] [facility] Systolic blood 2020-09-30 14:00:00 126 mm[Hg] Univer sity of pressure [place] [facility] Diastolic blood 2020-09-30 14:00:00 84 mm[Hg] Unive rsity of pressure [place] [facility] Heart rate 2020-09-30 14:00:00 79 /min Universi ty [facility] [place] [facility] Oxygen saturation in 2020-09-30 14:00:00 98 /min University of Arterial blood by [facility] nicky Pulse oximetry Branch Body temperature 2020-09-30 13:26:00 37.22 Ruthann Univ ersity of [place] [facility] Respiratory rate 2020-09-30 13:26:00 16 /min Univ ersity of [place] [facility] Body weight 2020-09-30 13:26:00 72.576 kg Universi ty [facility] [place] [facility] BMI 2020-09-30 13:26:00 28.80 kg/m2 [facility]i ty [facility] [place] [facility] Systolic blood 2020-09-30 14:00:00 126 mm[Hg] Univer sity of pressure [place] [facility] Diastolic blood 2020-09-30 14:00:00 84 mm[Hg] Unive rsity of pressure [place] [facility] Heart rate 2020-09-30 14:00:00 79 /min Universi ty [facility] [place] [facility] Oxygen saturation in 2020-09-30 14:00:00 98 /min University of Arterial blood by [facility] nicky Pulse oximetry Branch Body temperature 2020-09-30 13:26:00 37.22 Ruthann Univ ersity of [place] [facility] Respiratory rate 2020-09-30 13:26:00 16 /min Univ ersity of [place] [facility] Body weight 2020-09-30 13:26:00 72.576 kg Universi ty [facility] [place] [facility] BMI 2020-09-30 13:26:00 28.80 kg/m2 [facility]i ty [facility] [place] [facility] Temperature Oral (F) 2019-01-28 01:16:00 98.6 F [facility] Systolic (mm Hg) 2019-01-28 01:16:00 Estrada rial [place] Diastolic (mm Hg) 2019-01-28 01:16:00 Mem orial [place] Heart Rate 2019-01-28 01:16:00 [facility] [place] Respitory Rate 2019-01-28 01:16:00 Memori al [place] Systolic (mm Hg) 2019-01-27 20:42:00 Estrada rial [place] Diastolic (mm Hg) 2019-01-27 20:42:00 Mem orial Y[place] Heart Rate 2019-01-27 20:42:00 [facility] [place] Respitory Rate 2019-01-27 20:42:00 Memori al [place] Temperature Oral (F) 2019-01-27 20:42:00 98.5 F [facility] [place] Systolic (mm Hg) 2019-01-27 17:00:00 Estrada rial [place] Diastolic (mm Hg) 2019-01-27 17:00:00 Mem orial [place] Temperature Oral (F) 2019-01-27 17:00:00 98.5 F [facility] [place] Heart Rate 2019-01-27 17:00:00 [facility] [place] Respitory Rate 2019-01-27 [facility] [place] Height 2019-01-22 14:35:00 157.48 cm [facility] BMI Calculated 2019-01-22 14:35:00 [facility] [place] Weight 2019-01-22 14:35:00 [facility] [place] Weight 2019-01-22 04:34:00 [facility] Procedure Date / Time Performing Clinician Source Performed URINALYSIS 2021-09-10 06:03:00 Neena Bradford [facility] URINE DRUG (IMMUNOASSAY) 2021-09-10 06:03:00 Neena Bradford [facility] nc SCREEN W/O REFLEX XR CHEST 1 VW 2021-09-10 04:57:30 Neena Bradford [facility] CREATINE KINASE 2021-09-10 04:39:00 Neena Bradford [facility] MAGNESIUM 2021-09-10 04:39:00 Neena Bradford [facility] TROPONIN I 2021-09-10 04:39:00 Neena Bradford [facility] COMP. METABOLIC PANEL 2021-09-10 04:39:00 Neena Bradford [facility] ([id number]) Medical [place] CBC WITH DIFF 2021-09-10 04:39:00 Neena Bradford [facility] PROTHROMBIN TIME / INR 2021-09-10 04:39:00 Neena Bradford [facility] ACTIVATED PARTIAL 2021-09-10 04:39:00 Neena Bradford [facility] N-TERMINAL PRO-BNP 2021-09-10 04:39:00 Neena Bradford [facility] COVID-19 (ID NOW RAPID 2021-09-10 04:39:00 Neena Bradford [facility] TESTING) Medical Branch TROPONIN I 2021-09-09 21:49:00 [facility] COMP. METABOLIC PANEL 2021-09-09 21:49:00 FreeburnLuanne [facility] ([id number]) Medical Branch LITHIUM 2021-09-09 21:49:00 [facility] CBC WITH DIFF 2021-09-09 21:49:00 [facility] CONSENT/REFUSAL FOR 2021-09-09 19:51:22 Doctor Unassigned, No Un [facility] DIAGNOSIS AND TREATMENT Name Medical Branch URINALYSIS 2020-09-30 13:27:00 Jackson, [facility] ADC,CLC OR LCC ONLY - 2020-09-30 13:27:00 JacksonChuy aleman [facility] INFLUENZA A & B DIRECT Medical B ranch ANTIGEN COVID-19 (ID NOW RAPID 2020-09-30 13:27:00 JacksonChuy [facility] TESTING) Medical Branch Encounters Start End Encounter Admission Attending Care Care Encounter Source Date/Time Date/Time Type Type Clinicians Facility Department ID 2021-09-08 Outpatient Humaira-Mbayo VFP VFP [id number] [place] 02:24:16 _A_ [id number] Family Practic e 2021-09-07 Outpatient Humaira-Mbayo VFP VFP [id number] -[id number] [place] 22:13:27 _A_AH [id number] Family Practic e 2021-09-07 Outpatient Humaira-Mbayo VFP VFP [id number] -[id number] [place] 13:23:42 _A_ [id number] Family Practic e 2021-09-06 Outpatient Humaira-Mbayo VFP VFP [id number] -[id number] [facility] 04:23:58 _A_AH [id number] Family Practic e 2021-09-05 Outpatient Bernadine [facility] [id number] [facility] 19:22:48 _A_AH [id number] Family Practic e 2019-01-22 Inpatient E [facility] MED 7500 [facility] W 04:39:00 2021-09-09 2021-09-10 Emergency Sanchez [facility] [id number] Univers 22:20:00 03:02:00 Neena JIMENEZ [id number] i ty of [place] 4.2.7.2.686 [facility] [id number] [address] 2021-09-09 2021-09-10 Emergency X SANCHEZ [facility] ERT [id number] Univers 22:20:00 03:02:00 NEENA tubbs [facility] 2021-09-09 2021-09-10 Emergency X SANCHEZ [facility] ERT [id number] Univers 22:20:00 03:02:00 NEENA tubbs [facility] 2021-09-09 2021-09-09 Emergency Julia [facility] [id number] Univers 14:07:00 17:35:00 Luanne JIMENEZ [id number] i ty of [place] 4.2.7.2.686 [facility] [id number] [address] 2021-09-09 2021-09-09 Orders Doctor BELKYS [id number] Univers 00:00:00 00:00:00 Only Unassigned, LANA 350.1.13.10 ity of [place] [facility] 4.2.7.2.686 Joe [id number] [facility] 009 Branch 2020-09-30 2020-09-30 Chuy Jackson NESARAI [id number] Univers 07:22:00 08:18:00 Chuy Jimenez 350.1.13.10 i ty of [place] 4.2.7.[address] [facility] [id number] [facility] 084 Branch 2020-09-30 2020-09-30 Chuy Jackson NESARAI [id number] 07:22:00 08:18:00 Chuy Jimenez [id number] [place] 4.2.7.2.686 [place] [id number] 2020-09-30 2020-09-30 Emergency X SINGER [facility] ERT [id number] Univers 07:22:00 07:22:00 CHUY tubbs [facility] 2020-03-04 2020-03-14 Inpatient 3 Ronni Eldridge [facility] PSY [id number] 15:38:00 15:25:00 Chente [facility] 2019-01-22 2019-01-28 Inpatient [facility] [id number] Memoria 04:33:00 04:40:00 r Yon[place] 00 l [facility] 2018-02-21 2018-02-20 Inpatient E [facility] MED [id number] 14:48:00 13:18:00 [facility] Results Test Description Test Time Test Comments Results Result Comments Source TROPONIN I 2021-09-10 05:26:53 Test Item Value Reference Range Interpretation Comme nts TROPONIN I (test code = 0.003 ng/mL See_Comment [Au tomated message] The 5489666561) system which ge nerated this result tra [...] biotin. Lab Interpretation Normal (test code = 57941-9) [facility] [id number] 05:24:16 Test Item Value Reference Range Interpretation Comments NT-proBNP (test code 35 pg/mL See_Comment [Autom ated = 9170573179) message] The system which generated this result transmitted reference range : <=125. The reference range was not used to interpret this result as normal/abnormal . PERRY (test code = PERRY) Biotin has been reported to cause a negative bias, interpret results relative to patient's use of biotin. Lab Interpretation Normal (test code = 55608-0) [facility]2021-[facility]-17 05:16:51 Test Item Value Reference Range Interpretation Comments MAGNESIUM (test code = 0640149057) 1.8 mg/dL 1.7-2.4 Lab Interpretation (test code = Normal 37394-4) [facility]. METABOLIC PANEL ([id number])2021-09-10 05:16:31 Test Item Value Reference Range Interpretation Comments NA (test code = 139 mmol/L 135-145 2450559198) K (test code = 4.0 mmol/L 3.5-5.0 5785615245) CL (test code = 108 mmol/L 98-108 3241542335) CO2 TOTAL (test code 25 mmol/L 23-31 = 3779115558) AGAP (test code = 2-16 4454409406) BUN (test code = 14 mg/dL 7-23 3231736698) GLUCOSE (test code = 88 mg/dL 70-110 6113254428) CREATININE (test code 0.89 mg/dL 0.50-1.04 = 6124042520) TOTAL BILI (test code 0.5 mg/dL 0.1-1.1 = 5902497780) CALCIUM (test code = 10.3 mg/dL 8.6-10.6 1828122505) T PROTEIN (test code 6.9 g/dL 6.3-8.2 = 8793907863) ALBUMIN (test code = 4.3 g/dL 3.5-5.0 8481058670) ALK PHOS (test code = 72 U/L 34-122 1689018520) ALTv (test code = 17 U/L 5-35 1742-6) AST(SGOT) (test code 29 U/L 13-40 = 9720098952) eGFR (test code = mL/min/1.73m2 9714832188) PERRY (test code = PERRY) Association of [...] or abnormalities in imaging tests). [facility] [id number] 05:16:16 Test Item Value Reference Range Interpretation Comments CK (test code = 8227309465) 267 U/L 33-194 H Lab Interpretation (test code = Abnormal 50194-6) [facility] THRMPLAS [id number] 05:05:32 Test Item Value Reference Range Interpretation Comments APTT Patient (test See_Comment [Automat ed code = 3173-2) message] The system which generated this result transmitted reference range : 23 - 38 Seconds . The reference range was not used to interpr et this result as normal/abnormal . PERRY (test code = PERRY) The [facility] patient population mean normal value for aPTT is 30 seconds. Lab Interpretation Normal (test code = 59338-8) [facility] / [id number] 05:03:30 Test Item Value Reference Range Interpretation [...] tions. Lab Interpretation (test Normal code = 93610-3) [facility] WITH [id number] 04:57:13 Test Item Value Reference Range Interpretation Comments WBC (test code = See_Comment [Automated 7790-2) message] The sy stem which generated this [...] RDW-SD (test code = 41.2 fL 39.0-49.9 94789-3) RDW-CV (test code = 13.0 % 12.0-15.5 788-0) PLT (test code = See_Comment H [Automated 777-3) message] The sy stem which generated this result transmitted reference range : 166 - 358 10*3/ ?L. The reference r katie was not used to interpret this result as normal/abnormal . MPV (test code = 9.6 fL 9.5-12.9 66994-8) NRBC/100 WBC (test See_Comment [Automat ed code = 7419114985) message] The system which generated this result transmitted reference range : 0.0 - 10.0 /100 WBCs. The refer ence range was not u sed to interpret th is result as normal/abnormal . NRBC x10^3 (test code <0.01 See_Comment [Auto mated = 9406984695) message] The s ystem which generated this result transmitted reference range : 10*3/?L. The reference range was not used to interpret this result as normal/abnormal . GRAN MAT (NEUT) % 61.9 % (test code = 770-8) IMM GRAN % (test code 0.30 % = 5841579837) LYMPH % (test code = 26.0 % 736-9) MONO % (test code = 9.5 % 5905-5) EOS % (test code = 1.6 % 713-8) BASO % (test code = 0.7 % 706-2) GRAN MAT x10^3(ANC) 5.91 10*3/uL 1.88-7.09 (test code = 9884580481) IMM GRAN x10^3 (test 0.03 10*3/uL 0.00-0.06 code = 3967662147) LYMPH x10^3 (test code 2.48 10*3/uL 1.32-3.29 = 731-0) MONO x10^3 (test code 0.91 10*3/uL 0.33-0.92 = 742-7) EOS x10^3 (test code = 0.15 10*3/uL 0.03-0.39 711-2) BASO x10^3 (test code 0.07 10*3/uL 0.01-0.07 = 704-7) Lab Interpretation Abnormal (test code = 62052-9) [facility] [id number] 22:24:55 Test Item Value Reference Interpretation Comments Range TROPONIN I (test 0.002 ng/mL See_Comment [Automated code = 5995890540) message] The system which generated this result [...] biotin. Lab Interpretation Normal (test code = 32822-8) [facility]2021-[facility]-16 22:24:34 Test Item Value Reference Range Interpretation Comments [place] (test code = <0.2 0.6-1.2 L 3973791472) PERRY (test code = PERRY) Toxic Range: ? Greater than 1.2 mmol/L Lab Interpretation (test Abnormal code = 34557-9) [facility] METABOLIC PANEL ([id number])2021-09-09 22:13:54 Test Item Value Reference Range Interpretation Comments NA (test code = 139 mmol/L 135-145 1889590339) K (test code = 4.0 mmol/L 3.5-5.0 1040886353) CL (test code = 105 mmol/L 98-108 2140034246) CO2 TOTAL (test code 26 mmol/L 23-31 = 7102489264) AGAP (test code = 2-16 7811476881) BUN (test code = 11 mg/dL 7-23 0489692565) GLUCOSE (test code = 109 mg/dL 70-110 8551675616) CREATININE (test code 0.71 mg/dL 0.50-1.04 = 9764058645) TOTAL BILI (test code 0.6 mg/dL 0.1-1.1 = 8996736336) CALCIUM (test code = 10.4 mg/dL 8.6-10.6 7734763708) T PROTEIN (test code 7.6 g/dL 6.3-8.2 = 8090294886) ALBUMIN (test code = 4.7 g/dL 3.5-5.0 3656829218) ALK PHOS (test code = 78 U/L 34-122 3325042766) ALTv (test code = 19 U/L 5-35 2-6) AST(SGOT) (test code 28 U/L 13-40 = 6807483410) eGFR (test code = mL/min/1.73m2 2901683774) PERRY (test code = PERRY) Association of [...] or urine or abnormalities in imaging tests). [facility] WITH RMNU7943-50-81 22:03:32 Test Item Value Reference Range Interpretation Comments WBC (test code = See_Comment [Automated 8824-2) message] The sy stem which generated this [...] RDW-SD (test code = 40.2 fL 39.0-49.9 33907-3) RDW-CV (test code = 12.9 % 12.0-15.5 788-0) PLT (test code = See_Comment H [Automated 777-3) message] The sy stem which generated this result transmitted reference range : 166 - 358 10*3/ ?L. The reference r ktaie was not used to interpret this result as normal/abnormal . MPV (test code = 9.4 fL 9.5-12.9 L 07274-1) NRBC/100 WBC (test See_Comment [Automat ed code = 2468581765) message] The system which generated this result transmitted reference range : 0.0 - 10.0 /100 WBCs. The refer ence range was not u sed to interpret th is result as normal/abnormal . NRBC x10^3 (test code <0.01 See_Comment [Auto mated = 0972427119) message] The s ystem which generated this result transmitted reference range : 10*3/?L. The reference range was not used to interpret this result as normal/abnormal . GRAN MAT (NEUT) % 67.1 % (test code = 770-8) IMM GRAN % (test code 1.00 % = 6470882449) LYMPH % (test code = 21.4 % 736-9) MONO % (test code = 7.9 % 5905-5) EOS % (test code = 1.8 % 713-8) BASO % (test code = 0.8 % 706-2) GRAN MAT x10^3(ANC) 7.35 10*3/uL 1.88-7.09 H (test code = 6285314396) IMM GRAN x10^3 (test 0.11 10*3/uL 0.00-0.06 H code = 8724071909) LYMPH x10^3 (test code 2.34 10*3/uL 1.32-3.29 = 731-0) MONO x10^3 (test code 0.86 10*3/uL 0.33-0.92 = 742-7) EOS x10^3 (test code = 0.20 10*3/uL 0.03-0.39 711-2) BASO x10^3 (test code 0.09 10*3/uL 0.01-0.07 H = 704-7) Lab Interpretation Abnormal (test code = 52047-8) [facility] - INFLUENZA A & B DIRECT NHMUGOZ9100-47-60 14:04:00 Test Item Value Reference Range Interpretation Comments Influenza A (test code = 52540-6) Negative Negative Influenza B (test code = 84923-9) Negative Negative Lab Interpretation (test code = Normal 57641-1) [facility] (ID NOW RAPID TESTING)2020-09-30 14:03:00 Test Item Value Reference Range Interpretation Comments SARS-CoV-2 Rapid ID NOW Not Detected Not Detected (test code = 41394-7) PERRY (test code = PERRY) ID NOW COVID-19 Assay is an isothermal nucleic acid amplification test intended for the qualitative detection of nucleic acid from SARS-CoV-2 viral RNA in nasopharyngeal ([employer]) specimens. It is used under Emergency Use [...] indicated. Lab Interpretation Normal (test code = 08225-1) [facility]2020-[facility]07 13:55:00 Test Item Value Reference Range Interpretation Comments APPEARANCE (test code = Hazy Clear A 8853336598) COLOR (test code = Yellow Yellow 8113762900) PH (test code = 4.8-8.0 6015251991) SP GRAVITY (test code = 1.003-1.030 4796966734) GLU U QUAL (test code = Normal Normal 8233005556) BLOOD (test code = Negative Negative 9751304870) KETONES (test code = 5 mg/dL Negative A 6928251666) PROTEIN (test code = Negative Negative 2887-8) UROBILIN (test code = 2.0 mg/dL Normal A 0358551287) BILIRUBIN (test code = Negative Negative 8424527409) NITRITE (test code = Negative Negative 9355176836) LEUK ROZINA (test code = 25/uL Negative A 1003455941) RBC/HPF (test code = See_Comment [Autom ated message] 2393734748) The system [employer] generated this result transmit ngozi reference range : 0 - 3 HPF. The refe rence range was not u sed to interpret th is result as normal/abnormal . WBC/HPF (test code = See_Comment [Autom ated message] 5049652647) The system [employer] generated this result transmit ngozi reference range : 0 - 5 HPF. The refe rence range was not u sed to interpret th is result as normal/abnormal . BACTERIA (test code = Few Negative A 9697843032) MUCOUS (test code = Slight Negative LPF A 3506172354) SQ EPITH (test code = HPF 8287245080) Lab Interpretation (test Abnormal code = 18751-1) [facility]le[facility]PR Xoicwosekmq3130-78-08 16:42:24 Test Item Value Reference Range Interpretation [...] = 10-24-2020 N Expiration Dt) Thyroid Stimulating Nacdfrz0645-02-66 08:35:16 Test Item Value Reference Range Interpretation Comments TSH (test code = TSH) 1.170 mIU/mL 0.270-4.200 Lipid Ezwnh7652-24-76 08:21:19 Test Item Value Reference Range Interpretation Comments Cholesterol Total 254 mg/dL 0-200 H RISK OF HE ART (test code = DISEASEPublishe d by Cholesterol Total) [employer] Cathie lyte Optimal Borderl ine [...] calculation is LDL/HDL Ratio=L DL Calc/HDL Chol RCABXGOXALSC1620-14-21 08:24:008.6[facility] AlnelcvZWGVYGUFGGYP7759-92-83 08:24:54395Wbbusbnm DzucmfjVPCRAKYOPSZD6159-47-92 08:24:0027[facility] OJSNYLDUXWGK4596-16-78 08:24:09971Oubvtqmz XkvsonaLGFRKFHIRTDC9810-62-40 08:24:003.6[facility] SozdgytHCRSQGLNYSXU8455-24-42 08:24:000.70[facility] QVUTHCCHFTBR0324-22-30 08:24:008.4[facility] MaohwjvFYDLNGYCYNGR3580-13-47 08:24:29106Udcqxebs ObenwbfTLDFOEFSTMWA7438-47-90 08:24:0086[facility] MWIVFZGRWUVH8885-82-54 08:24:006[facility] DmyfdpoCVUJUKKDYP1010-16-37 08:24:00 11.6[facility] YtdrievYVETNGVBAK6745-12-93 08:24:003.78[facility]annHEMATOLOGY 2019-01-26 08:24:0013.3[facility] FiblkazQGLZPCZWQX2069-53-22 08:24:0034.0[facility] SkfsuouJKUJARVWPP7584-52-83 08:24:006.3[facility] CtolafjRHPLQITOKI4666-82-47 08:24:00 Test Item Value Reference Range Interpretation Comments MCH (test code = MCH) 30.7 pg 27.0-31.0 [facility] ZfcccuuUVOELQVJUC9799-23-39 08:24:0090.3[facility]annHEMATOLOGY 2019-01-26 08:24:0034.2[facility] EhzkdhsHXACHSIJVJ8927-69-68 08:24:61599Pvaqngza FthlidbRZZZKJHOBT9660-86-40 08:24:007.5[facility] XeurxliSXMBYHIYYCHI9370-17-59 08:24:008.6[facility] DfzhcgiWJNKZTVGJFZV1330-48-34 08:24:76786Vpxfvryj [facility] UPOOBKTHUXGE6168-03-90 08:24:0027[facility] WzgpixnGTOFBSTWOPEP7001-50-06 08:24:00 139[facility] MryrmthHCZWZPXCEQFM1287-36-76 08:24:003.6[facility] RIBCCERDEAPG2176-63-06 08:24:000.70[facility] EujdbfcDKPREWNJUIBZ6574-40-88 08:24:008.4[facility] MwgzwasHNIPMPVVCLNP5418-34-68 08:24:23521Tvqabiyi [facility] HWPWHTRRBHOR8175-30-83 08:24:0086[facility] RmhtdbiUDLBNPWORTIB9773-59-26 08:24:00 6[facility] DvberpaQBGRUQKMPD9675-27-99 08:24:0011.6[facility]annHEMATOLOGY 2019-01-26 08:24:003.78[facility] XtmtlqkMKOLNYOMIY0633-55-33 08:24:0013.3[facility] TvpkubzMBYXCDZHTQ0733-74-75 08:24:0034.0[facility] MyluaioCVFLLWRWZZ8767-09-66 08:24:006.3[facility] OrqjvvcMZKTGBQNMV0638-24-21 08:24:00 Test Item Value Reference Range Interpretation Comments MCH (test code = MCH) 30.7 pg 27.0-31.0 [facility] CcxhpbzLSQOOEUNNQ5668-19-97 08:24:0090.3[facility]annHEMATOLOGY 2019-01-26 08:24:0034.2[facility] CpwqbudESBBYZLJCA9149-53-92 08:24:85352Hdhlsxbr QijbdfbSGLTHTKAQX5650-17-36 08:24:007.5[facility] HermannCHEM PPHEC5386-06-76 09:14:87729Vrvvgdqf HermannCHEM YAOBX7677-24-89 09:14:008.5[facility]annCHEM DYPWH1928-28-84 09:14:0013.3[facility]annCHEM BYUXC5449-19-48 09:14:0024 [facility]annCHE[facility] MMJMS5080-47-63 09:14:84830Gcyhwyht HermannCHEM PANEL 2019-01-25 09:14:0081[facility]annCHEM NBFHT8509-67-98 09:14:002[facility]annCHEM CYYNV7827-09-83 09:14:003.3[facility]annCHEM YNOKD5220-02-12 09:14:000.60[facility]annCHEM TBKWJ7838-31-72 09:14:88603Hsousvte HermannCHEM DANSA2944-24-55 09:14:43995Zxmsmjwu [facility]annCHE[facility] HVGMH7036-40-48 09:14:008.5 [facility]annCHE[facility] NJLEK3187-97-10 09:14:0013.3[facility]annCHEM PANEL 2019-01-25 09:14:0024[facility]annCHEM GXQJD5844-08-54 09:14:10205Pkgnvitk [facility]annCHE[facility] BLGJL2767-53-27 09:14:0081[facility]annCHEM AXLKI7711-10-76 09:14:002[facility]annCHEM EQNCS9421-03-13 09:14:003.3[facility]annCHEM XHFWF8029-36-33 09:14:000.60[facility]annCHEM FINDU3898-20-90 09:14:59014 [facility]annMOLECULAR KFBHTPYQVV7048-14-09 16:22:00Negative (01/23/19 11:22 AM)[facility] HermannMOLECULAR XIJNIVSGNG8577-88-59 16:22:00Negative (01/23/19 11:22 AM)[facility]annCHEM TSVWJ2984-79-02 15:42:002.76[facility]annCHEM PANEL 2019-01-23 15:42:002.76[facility]annCHEM WKEEC7125-12-55 12:32:000.9[facility]annCHEM LVUUE9927-10-24 12:32:000.9[facility]annCHEM AMUWU8858-51-87 10:50:002.0[facility]annCHEM DNFGZ1423-52-27 10:50:10951Nqofzzjl [facility]annCHEM PDGHW0721-99-55 10:50:0023[facility]annCHEM PGEBB7038-38-21 10:50:25355 [facility]annCHEM YUHZA0951-46-13 10:50:003.1[facility]annCHEM PANEL 2019-01-23 10:50:13666Dsapomgn HermannCHEM GYKZP4100-52-29 10:50:005[facility]annCHEM XQWHO7326-51-40 10:50:000.50[facility]annCHEM HQBAS0023-90-83 10:50:007.8[facility]annCHEM NZTHE7526-26-27 10:50:0083[facility]annCHEM NEITF3271-80-38 10:50:0010.1[facility] CymvzjkAFQPNCMYLI3578-59-24 10:50:000.2 [facility] FjmvkgrSVNWCJDYSA9994-41-58 10:50:000.8[facility] HermannHEMATOLOGY 2019-01-23 10:50:005.5[facility] LlyehwmJIGZTCWQAB4664-91-97 10:50:002.2[facility] RtjiaoaHYQKJGLRZN3604-88-13 10:50:000.1[facility] DtxyznrQVCHHRGPIU7127-05-80 10:50:0063.6[facility] TqtocmcIGLDQAPYYX9331-17-36 10:50:008.9[facility] PSQVEDFMMP9837-76-38 10:50:002.3[facility] VurunstIKHWZYDJVL9312-13-40 10:50:00 Normal (01/23/19 5:50 AM)[facility] ZyistkoGNMOLHJNXD0897-90-44 10:50:00Normal (01/23/19 5:50 AM)[facility] YwogfgsPEKERZIRDL7533-35-66 10:50:0025.1[facility] NfeazxbSGCWQTNPWR2242-91-18 10:50:0013.1[facility] WcgxzdnTDJAGGZEKT0686-43-51 10:50:00480Fguohumo EkokygeEVKPAIEYQF4611-22-13 10:50:007.7[facility] FOFKLZBLCE4906-34-19 10:50:008.6[facility] IwcxyzaSJOSFEXJEJ1787-92-04 10:50:00 10.0[facility] ZxfagizUXPFXAMDHR1171-15-93 10:50:0034.[facility] HermannHEMATOLOGY 2019-01-23 10:50:0028.7[facility] MnenrixMRQPACVTZF2805-34-09 10:50:0087.8[facility] JewddydXMQIWYALOR5103-02-70 10:50:00 Test Item Value Reference Range Interpretation Comments MCH (test code = MCH) 30.4 pg 27.0-31.0 [facility] LueosfpZSMVXGYIJJ4134-65-36 10:50:003.27[facility] HermannHEMATOLOGY 2019-01-23 10:50:95902Xqssjthk PftgwssVORHOBUNBD9298-55-71 10:50:007.7[facility] UllhqboNRNTLHXFFF6065-42-42 10:50:008.[facility]orial FrhvypjCWITMXSNTV4738-31-60 10:50:0010.0[facility] DdunazqMQFTCQPEUC5189-88-72 10:50:0034.[facility] NLVQLRABPH4695-70-71 10:50:0028.7[facility] WejuxrvLUSWKGMPPK2809-81-36 10:50:00 87.8[facility] PaldiuvOEHKYTNRTJ6515-48-35 10:50:00 Test Item Value Reference Range Interpretation Comments MCH (test code = MCH) 30.4 pg 27.0-31.0 [facility]annCHEM ZTXUJ4387-61-17 10:50:002.0[facility] HermannCHEM PANEL 2019-01-23 10:50:62986Cdkdtngv HermannCHEM FXUMJ6807-95-26 10:50:0023[facility] LoguolmTPVUHFWSFC8813-83-35 10:50:003.27[facility]annCHEM OQPHH2981-17-80 10:50:55479Rlngefkw [facility]annCHEM LRNWH1088-01-52 10:50:003.1[facility]annCHEM VFEUN3802-36-10 10:50:13074Kwozqlqj [facility]annCHEM GONBB4308-47-45 10:50:005 [facility]annCHEM CLLEC3989-06-35 10:50:000.50[facility]annCHEM PANEL 2019-01-23 10:50:007.8[facility]annCHEM EFXDO1039-56-04 10:50:0083[facility]annCHEM EQLKO1390-32-44 10:50:0010.1[facility] SomsdtgUUFGTBEJLY3383-90-44 10:50:000.2[facility] KnuaghbBKRJDXFIPT1931-50-07 10:50:000.8[facility] SLPKHQLFCC7650-33-18 10:50:005.5[facility] RpsvzgfRPZBBUTRJX7630-42-28 10:50:002.2 [facility] KxqambhHUPEYKDUHP7835-81-22 10:50:000.1[facility] HermannHEMATOLOGY 2019-01-23 10:50:0063.6[facility] CahusmnVECOEQTNPI1323-91-81 10:50:008.9[facility] VyprxcsZHFBPGSUAR7332-36-14 10:50:002.3[facility] UjlsdiaTCPCOUMDOX5771-40-26 10:50:00Normal (01/23/19 5:50 AM)[facility] QsqoczaMTLOYFLZCE8798-53-73 10:50:00 Normal (01/23/19 5:50 AM)[facility] ObrvkwoGKZRABHWRL7066-41-72 10:50:0025.1[facility] CwandpkPCDTQCFDBO7659-50-29 10:50:0013.1[facility] HermannCHEM ERDYV1071-59-31 11:32:002.4[facility] HermannCHEM QNNYX6454-48-70 11:32:002.4[facility]annCHEM KCMZK7884-15-00 09:04:003.0[facility]annCHEM TJEYO4757-47-92 09:04:003.0 [facility]UR[facility] AND QKEGS3860-07-47 07:14:00 Test Item Value Reference Range Interpretation Comments UA Spec Grav (test code = UA Spec 1.014 1 Grav) [facility] UVJZX9230-97-25 07:14:00 Test Item Value Reference Range Interpretation Comments UA pH (test code = UA pH) 6.0 1 5.0-8.0 [facility] FNCGI3873-72-28 07:14:00Negative (01/22/19 2:14 AM) [facility] LXRTO7811-83-19 07:14:00Negative *NA*(01/22/19 2:14 AM) [facility] VIYPT6017-30-53 07:14:00Negative *NA*(01/22/19 2:14 AM) [facility] FIOTN5209-28-05 07:14:00Negative *NA*(01/22/19 2:14 AM) [facility] XQNEF6057-44-45 07:14:00Negative (01/22/19 2:14 AM) [facility] WNRRR5068-56-57 07:14:00Negative (01/22/19 2:14 AM) [facility] SQNGA9372-94-74 07:14:00Negative (01/22/19 2:14 AM) [facility] GYNEI2423-88-80 07:14:00<1[facility] TIYLC4663-27-86 07:14:0025[facility] TLRLI6935-08-23 07:14:002 [facility] MYSGX0168-16-87 07:14:00Light Yellow *NA*(01/22/19 2:14 AM)[facility] UDYRP9617-90-18 07:14:00Clear (01/22/19 2:14 AM) [facility] YHKJP6661-96-86 07:14:00 Test Item Value Reference Range Interpretation Comments UA Spec Grav (test code = UA Spec 1.014 1 Grav) [facility] YCJLA1336-88-82 07:14:00 Test Item Value Reference Range Interpretation Comments UA pH (test code = UA pH) 6.0 1 5.0-8.0 [facility] JFNBF8562-32-62 07:14:00Negative (01/22/19 2:14 AM) [facility] ZIBOY8375-41-66 07:14:00Negative *NA*(01/22/19 2:14 AM) [facility] FBZYQ5339-81-96 07:14:00Negative *NA*(01/22/19 2:14 AM) [facility] MRWAA0788-72-25 07:14:00Negative *NA*(01/22/19 2:14 AM) [facility] YOBFG3465-55-42 07:14:00Negative (01/22/19 2:14 AM) [facility] IWJQZ4858-70-29 07:14:00Negative (01/22/19 2:14 AM) [facility] JVNKS1589-39-54 07:14:00Negative (01/22/19 2:14 AM) [facility] NAJNV5506-11-34 07:14:00<1[facility] BDTPV9467-69-25 07:14:0025[facility] VGVFL0002-05-03 07:14:002 [facility] CEGTF3688-90-28 07:14:00Light Yellow *NA*(01/22/19 2:14 AM)[facility] BFDVG8763-36-63 07:14:00Clear (01/22/19 2:14 AM) [facility] GvdzfjbAGMZQ7587-66-77 05:16:000.90[facility] YfijvfdLAOZI2721-01-60 05:16:000.90[facility] EfpolxwRIHFSQWMRO5600-06-51 05:01:0013.6[facility] IQDOXAROHK7293-37-42 05:01:27296Dudkjizw ZwlqrqrEBPYUINYLD6718-02-42 05:01:007.3 [facility] EjbgjqyEKHIADUEZO8501-48-76 05:01:0014.0[facility]annHEMATOLOGY 2019-01-22 05:01:004.85[facility] SndbkshYQAJRXASIE2548-11-14 05:01:0042.7[facility] HiowjdyMYRRYSHZER0419-61-26 05:01:00 Test Item Value Reference Range Interpretation Comments MCH (test code = MCH) 29.0 pg 27.0-31.0 [facility] OczsignWNCRQTRIIB7364-01-82 05:01:0088.2[facility]annHEMATOLOGY 2019-01-22 05:01:00 Test Item Value Reference Range Interpretation Comments INR (test code = INR) 0.96 1 0.85-1.17 [facility] TdoqloaGJTHKSSDSF2940-44-09 05:01:00 Test Item Value Reference Range Interpretation Comments PT (test code = PT) 12.6 s 12.0-14.7 [facility] UmadiiqDQTXZYREBB0255-51-75 05:01:00 Test Item Value Reference Range Interpretation Comments PTT (test code = PTT) 25.9 s 22.9-35.8 [facility] PZQOPCT3110-12-75 05:01:00Negative (01/22/19 12:01 AM) [facility] HermannCARDIAC WXDVDAX8035-57-59 05:01:00<0.02[facility] CARDIAC IILAWJK5506-94-61 05:01:0049[facility]annCHEM MCNUH0004-41-62 05:01:000.6[facility] HermannCHEM BFXJM4079-51-32 05:01:45369Pkgupfjq [facility]annCHEM XPAIC5173-84-32 05:01:004.0[facility] HermannCHEM XIKHS8418-24-54 05:01:0017 [facility]annCHEM BATOV0421-99-11 05:01:0025[facility]annCHEM PANEL 2019-01-22 05:01:008.1[facility]annCHEM YBHVX1438-72-04 05:01:00 Test Item Value Reference Range Interpretation Comments B/C Ratio (test code = B/C Ratio) 20 1 6-25 [facility]annCHE[facility] QUBOL4674-83-79 05:01:00 Test Item Value Reference Range Interpretation Comments A/G Ratio (test code = A/G Ratio) 1.0 1 0.7-1.6 [facility]annCHE[facility] SIRVY1421-18-04 05:01:004.1[facility]annCHEM PANEL 2019-01-22 05:01:006.90[facility] VltxexxQERXEZWDZLLLW0203-76-39 05:01:00Negative *NA*(01/22/19 12:01 AM)[facility] MvgufqwXXIVTLFATQ9085-77-97 05:01:000.1[facility] AnetdpoTMZAWRAEBW0886-24-16 05:01:000.7[facility] HlryqraSODUOMJKJK9055-83-18 05:01:000.0[facility] AyzggvqDHPUGFUDDX4685-75-90 05:01:000.0[facility] BZNZMTQELH6930-51-78 05:01:000.9[facility] JcntegoBOKJNPJVVE2256-07-63 05:01:008.6 [facility] FfqaiacPZVHEKXWGT6809-25-33 05:01:000.6[facility]annHEMATOLOGY 2019-01-22 05:01:0086.5[facility] IksskdlNQSGKWYHET0392-15-58 05:01:005.7[facility] HjmqpvjXHDWTXLYGR3612-32-15 05:01:006.9[facility] LprixegYIYORTAQAX6305-24-00 05:01:009.9[facility] QtjozjxEUNTSBOTKK3166-99-31 05:01:0032.8[facility] MFZVURWZKL0645-16-41 05:01:0013.6[facility] GkrscgqNQJWVKUJAF8549-27-39 05:01:00 443[facility] QybibjbAAOGSQAJYD4068-15-55 05:01:007.3[facility]annHEMATOLOGY 2019-01-22 05:01:0014.0[facility] TkqouheBEPCPEACRD7576-66-26 05:01:004.85[facility] GcnnmrvUCOXCSUUHE8573-81-64 05:01:0042.7[facility] OzqboukEDQPQZYXZU0281-44-93 05:01:00 Test Item Value Reference Range Interpretation Comments MCH (test code = MCH) 29.0 pg 27.0-31.0 [facility] BgudhbqWKBRIWQKQU6935-73-43 05:01:0088.2[facility] HermannHEMATOLOGY 2019-01-22 05:01:00 Test Item Value Reference Range Interpretation Comments INR (test code = INR) 0.96 1 0.85-1.17 [facility] ItwjpddDXVCSXHLGV8518-74-86 05:01:00 Test Item Value Reference Range Interpretation Comments PT (test code = PT) 12.6 s 12.0-14.7 [facility]KosfndvSCBFRPSKQX9329-31-92 05:01:00 Test Item Value Reference Range Interpretation Comments PTT (test code = PTT) 25.9 s 22.9-35.8 [facility] WGWYILR0723-93-81 05:01:00Negative (01/22/19 12:01 AM) [facility] HermannCARDIAC JWCKKQO4585-81-64 05:01:00<0.02[facility] CARDIAC BPTLGPB0678-33-23 05:01:0049[facility] HermannCHEM RQBMB7402-68-84 05:01:000.6[facility] HermannCHEM ATESN6427-89-73 05:01:32640Glprcpat HermannCHEM OKFQY7909-26-17 05:01:004.0[facility] HermannCHEM ACXMV8503-86-48 05:01:0017 [facility]annCHEM PVLDK3841-57-72 05:01:0025[facility] HermannCHEM PANEL 2019-01-22 05:01:008.1[facility] HermannCHEM LUWSX4905-56-62 05:01:00 Test Item Value Reference Range Interpretation Comments B/C Ratio (test code = B/C Ratio) 20 1 6-25 [facility]annCHEM YZTQQ6894-09-31 05:01:00 Test Item Value Reference Range Interpretation Comments A/G Ratio (test code = A/G Ratio) 1.0 1 0.7-1.6 [facility]annCHEM EQFVS5056-66-34 05:01:004.1[facility] HermannCHEM PANEL 2019-01-22 05:01:006.90[facility] QjvvhwmAWOUYBTXZGEAY6987-89-40 05:01:00Negative *NA*(01/22/19 12:01 AM)[facility] UcgqrcsIIOFTEWQXC3737-04-93 05:01:000.1[facility] MwrocplVVMFIKQYPR4909-66-43 05:01:000.7[facility] PsrxhtcQAENZSFOJK8336-88-16 05:01:000.0[facility] BtlqrvzTWUFRZLSCP3516-19-03 05:01:000.0[facility] UKQVZIJGWC6235-03-25 05:01:000.9[facility] YtmsfmjWASYJQSBJV7438-79-81 05:01:008.6 [facility] AduqlkwPBHPOFXFGF9819-29-62 05:01:000.6[facility]annHEMATOLOGY 2019-01-22 05:01:0086.5[facility] CgzffeoQNXYRYLDBU7671-41-60 05:01:005.7[facility] MqtpfmfALDHOHBFTF3145-26-23 05:01:006.9[facility] [id number] 05:01:009.9[facility] YlwgosvXPFRJIHMBO0557-88-88 05:01:0032.8[facility] [id number] 14:36:00 Test Item Value Reference Range Interpretation [...] 0.00-0.01 N code = ETOHU) Comprehensive Metabolic [id number] 14:36:00 Test Item Value Reference Range Interpretation [...] the [employer],http ://nkd ep.nih.gov Urinalysis [id number] 14:32:00 Test Item Value Reference Range Interpretation Comments Color (test code = COLOR) Yellow Yellow,Straw,Pl N yellow Clarity (test code = Clear Clear N CLAR) Specific [place] (test 1.024 1.001-1.035 N code = SPGR) [...] code = Few /HPF BACT) CBC with [id number] 14:21:00 Test Item Value Reference Range Interpretation [...] code = ALYMPH) 3.0 K/cumm 0.5-4.6 N [place] Abs (test code = AMONO) 0.5 K/cumm 0.0-1.2 N Eos Abs (test code = AEOS) 0.19 K/cumm 0.00-0.74 N Baso Abs (test code = ABASO) 0.1 K/cumm 0.00-0.21 N
--- NOTE | 2021-09-22 14:07 | ER ---
Nurse's Notes [facility] Name: Tiffany Quinn Age: 51 yrs Sex: Female : 1970 Arrival Date: 09/22/2021 Time: 12:48 Bed Waiting Private MD: Diagnosis: Anxiety disorder, unspecified Presentation: 09/22 13:10 Chief complaint: Patient states: Anxiety x 1 month. Coronavirus screen: Client denies ss travel out of the [place] in the last 14 days. Ebola Screen: Patient denies exposure to infectious person. Patient denies travel to an Ebola-affected area in the 21 days before illness onset. Initial Sepsis Screen: Does the patient meet any 2 criteria? No. Patient's initial sepsis screen is negative. Does the patient have a suspected source of infection? No. Patient's initial sepsis screen is negative. Risk Assessment: Do you want to hurt yourself or someone else? Patient reports no desire to harm self or others. Onset of symptoms was July 2021. 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 - Social history:: Smoking status: Patient denies any tobacco usage or history of. Patient uses street drugs, Methamphetamine (Meth). Screenin:03 Abuse screen: Denies threats or abuse. Denies injuries from another. Nutritional ss screening: No deficits noted. Tuberculosis screening: Never had TB. Fall Risk None identified. Assessment: 14:03 Reassessment: PANFILO Mujica in triage assessing patient at this time. General: Appears ss comfortable, Behavior is cooperative, restless. . Denies fever, feeling ill, fatigue, chills. Neuro: Level of Consciousness is awake, alert, obeys commands, Oriented to person, place, time, situation, Plunger Scoop Operator are equal bilaterally. Cardiovascular: Capillary refill < 3 seconds is brisk in bilateral fingers. Cardiovascular: Pulses are palpable in right radial artery and left radial artery. Respiratory: Airway is patent Respiratory effort is even, unlabored, Respiratory pattern is regular, symmetrical, Breath sounds are clear bilaterally. Denies cough. GI: Reports nausea. EENT: Oral mucosa is moist. Derm: Skin is intact, is healthy with good turgor, Skin is dry, Skin is pink, warm \\T\\ dry. normal. Musculoskeletal: Circulation, motion, and sensation intact. Range of motion: intact in all extremities, Swelling absent. 14:04 Reassessment: Pt states, "I'm just here to make sure I'm not dying.". ss Vital Signs: 13:10 Pulse 92; Resp 18; Temp 97.6(TE); Pulse Ox 100% on R/A; Weight 71.21 kg; Height 5 ft. 3 ss in. (160.02 cm); Pain 0/10; 13:13 BP 124 / 90; ss 13:10 Body Mass Index 27.81 (71.21 kg, 160.02 cm) ED Course: 12:48 Patient arrived in ED. kc5 13:12 Triage completed. ss 13:12 Arm band placed on right wrist. ss 14:04 Patient has correct armband on for positive identification. ss 14:04 No provider procedures requiring assistance completed. Patient did not have IV access ss during this emergency room visit. 14:06 Guanako Palomino PA is PHCP. jrMagen 14:06 Bill Palm MD is Attending Physician. [email or web address] Administered Medications: No medications were administered Outcome: 14:07 Discharge ordered by . kosta 14:19 Discharged to home ambulatory. ss 14:19 Condition: good 14:19 Discharge instructions given to patient, Instructed on discharge instructions, follow up and referral plans. 14:20 Patient left the ED. Signatures: Preethi Melendez, RN RN Guanako Palomino PA PA [id number] Yaritza May [email or web address]
--- NOTE | 2021-09-22 14:07 | EDPHYS ---
Physician Documentation [facility] Name: Tiffany Quinn Age: 51 yrs Sex: Female : 1970 Arrival Date: 09/22/2021 Time: 12:48 Bed Waiting Private MD: ED Physician Blil Palm HPI: 09/22 14:07 This 51 yrs old Female presents to ER via Ambulatory with complaints of Anxiety. jr8 17:53 Onset: The symptoms/episode began/occurred acutely, today. The patient has experienced jr8 similar episodes in the past, multiple times. The patient has been recently seen by a physician:. This is a 51-year-old female that came to the emergency room for complaints of anxiety. Patient stated that she just wanted to make sure she was doing okay. Patient has been seen multiple times over the past month for similar complaints.. 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 - Social history:: Smoking status: Patient denies any tobacco usage or history of. Patient uses street drugs, Methamphetamine (Meth). ROS: 17:53 Constitutional: Negative for fever, chills, and weight loss, Cardiovascular: Negative jr8 for chest pain, palpitations, and edema, Respiratory: Negative for shortness of breath, cough, wheezing, and pleuritic chest pain, Abdomen/GI: Negative for abdominal pain, nausea, vomiting, diarrhea, and constipation, MS/Extremity: Negative for injury and deformity, Skin: Negative for injury, rash, and discoloration, Neuro: Negative for headache, weakness, numbness, tingling, and seizure. 17:53 Psych: Positive for anxiety. 17:53 All other systems are negative. Exam: 17:53 Constitutional: This is a well developed, well nourished patient who is awake, alert, jr8 and in no acute distress. Cardiovascular: Regular rate and rhythm with a normal S1 and S2. No gallops, murmurs, or rubs. Normal PMI, no JVD. No pulse deficits. Respiratory: Lungs have equal breath sounds bilaterally, clear to auscultation and percussion. No rales, rhonchi or wheezes noted. No increased work of breathing, no retractions or nasal flaring. Skin: Warm, dry with normal turgor. Normal color with no rashes, no lesions, and no evidence of cellulitis. MS/ Extremity: Pulses equal, no cyanosis. Neurovascular intact. Full, normal range of motion. Neuro: Awake and alert, GCS 15, oriented to person, place, time, and situation. Cranial nerves II-XII grossly intact. Motor strength 5/5 in all extremities. Sensory grossly intact. Cerebellar exam normal. Normal gait. Psych: Awake, alert, with orientation to person, place and time. Behavior, mood, and affect are within normal limits. Vital Signs: 13:10 Pulse 92; Resp 18; Temp 97.6(TE); Pulse Ox 100% on R/A; Weight 71.21 kg; Height 5 ft. 3 ss in. (160.02 cm); Pain 0/10; 13:13 BP 124 / 90; ss 13:10 Body Mass Index 27.81 (71.21 kg, 160.02 cm) ss MDM: 14:06 Data reviewed: vital signs, nurses notes, and as a result, I will discharge patient. jr8 Data interpreted: Pulse oximetry: on room air is 100 %. Interpretation: normal. Counseling: I had a detailed discussion with the patient and/or guardian regarding: the historical points, exam findings, and any diagnostic results supporting the discharge/admit diagnosis, the need for outpatient follow up, a psychiatrist, to return to the emergency department if symptoms worsen or persist or if there are any questions or concerns that arise at home. 14:07 Patient medically screened. jr8 14:07 Medical screen evaluation completed. [facility] emergency medical condition absent. jr8 Administered Medications: No medications were administered Disposition: 09/23 08:51 Co-signature as Attending Physician, Bill Palm MD I agree with the assessment and jo plan of care. Disposition Summary: 09/22/21 14:07 Discharge Ordered Location: Home jr8 Problem: new jr8 Symptoms: have improved jr8 Condition: Stable jr8 Diagnosis - Anxiety disorder, unspecified jr8 Followup: jr8 - With: Private Physician - When: 1 - 2 days - Reason: Recheck today's complaints, Continuance of care, Re-evaluation by your physician Forms: - Medication Reconciliation Form jr8 - Thank You Letter jr8 - Antibiotic Education jr8 - Prescription Opioid Use jr8 Signatures: Bill Palm MD MD cha Smirch, Shelby, RN RN Guanako Stark PA PA jr8
[2021-09-22 14:31] VITALS: TEMP 97.6; O2SAT 100
[2021-09-22 14:36] VITALS: BP 124/90
== END 2021-09-22 14:20 | disposition home or self-care (01) ==
LOC: ER 12:44
DX: F41.9 Anxiety disorder, unspecified (principal); Z88.8 Allergy status to other drugs, medicaments and biological substances
CPT/HCPCS: 99281

== ENCOUNTER 2021-09-22 20:28 | Emergency (ER) | payer OTHER ==
--- OUTSIDE RECORDS SUMMARY | 2021-09-22 20:35 | XMS REPORT | Continuity of Care Document ---
:1970 Author Organization [facility] t Address [address] [place] [address] Care Team Providers Name Role Phone UNKNOWN [...] [facility] OF [place] - [id number] 2020 [employer] 00:00:00 (MEDICARE REPLACEMENT/ADVANT AGE - HMO) Problems Condition Condition Condition Status Onset Resolution Last Treating Co mments Source Name Details Category Date Date Treatment Clinician Date LOW PB Diagnosis Active 2019-01-22 Mem oria 01-21 01:52:00 l LOW PB 00:00: Yonis 00 Active 01/21/2019 [place] INFECTIOUS Diagnosis Active 2019-02-06 Memoria GASTROENTE 01-21 08:58:00 l RITIS AND 00:00: [place] COLITIS INFECTIOUS 00 GASTROENTE RITIS AND COLITIS Active 01/21/2019 [facility] Irregular Irregular Disease Active Uni vers menstrual menstrual 8-15 ity of cycle cycle 00:00: [address] Skin Skin Disease Active Univers lesion lesion 8-15 ity of 00:00: [address] Psychiatri Psychiatri Disease Active U nivers c disorder c disorder 8-15 it y of 00:00: [address] Well woman Well woman Disease Active U nivers exam with exam with 8-15 ity of routine routine 00:00: [place] gynecologi gynecologi 00 Me dical nicky exam nicky exam Branch INFECTIOUS Diagnosis Active 2019-02-06 Memoria GASTROENTE 08:58:00 l RITIS AND Yonis COLITIS, INFECTIOUS GASTROENTE RITIS AND COLITIS, Active [facility] Allergies, Adverse Reactions, Alerts Allergy Allergy Status Severity Reaction(s) Onset Inactive Treating Comm ents Source Name Type Date Date Clinician Phenerga Phenerga Active Memori a n n l Yonis NO KNOWN Drug Active Univers ALLERGIE Class ity of S [facility] Social History Social Habit Start Date Stop Date Quantity Comments Source History of Cigarette Smoker Universi ty of tobacco use [facility] Tobacco Comment 2-[address] [facility] Exposure to Not sure [place] of SARS-CoV-2 [facility] (event) [facility] Tobacco use and 2016-06-08 2016-06-08 [facility]00 00:00:00 [facility] Alcohol intake 2016-06-08 2016-06-08 0 /d University of 00:00:00 00:00:00 [facility] Sex Assigned At [birth year] Universit y of 00:00:00 00:00:00 [facility] Smoking Status Start Date Stop Date Source Social History 2019-01-22 05:00:12 [facility] Her urena Current some day smoker 2016-06-08 00:00:00 [facility] Medications Ordered Filled Start Stop Current Ordering Indication Dosage Frequency Signature Comments Components Source Medication Medication Date Date Medication? Clinician (SIG) Name Name cefTRIAXone 2020-10- No 1000mg 1,000 mg, Univers (ROCEPHIN) 17 11-17 IV ity of 1,000 mg in 08:30: 08:01 [place], [place] NaCl 0.9% 00 :00 ONCE, 1 [...] 09/09/21 at 2330, RANDA amoxicillin 2020-10 Yes [id number] 500mg Take 1 Univers 500 mg 11-10 capsule by ity of capsule 00:00: mouth 3 [place] 00 (three) Medical times Branch daily. ondansetron 2019-10- No 4mg 4 mg, [facility] ers (ZOFRAN-ODT 12-01 Oral, ity of ) 15:15: 14:16 ONCE, 1 [place] disintegrat 00 :00 dose, Mon Med ical ing tablet 09/30/20 at [facility] 4 mg 0915, Routine ondansetron 2019-10- No 4mg 4 mg, [facility] ers (ZOFRAN-ODT 12-01- Oral, ity of ) 14:30: 13:32 ONCE, 1 [place] disintegrat 00 :00 dose, Mon Med ical ing tablet 09/30/20 at [facility] 4 mg 0830, Routine ondansetron 2019-10 Yes [id number] 4mg Take 1 Univers 4 mg 2-07 tablet by ity of disintegrat 00:00: mouth [place] ing tablet 00 every 8 Medica l (eight) Branch hours as needed for Nausea and Vomiting (N/V). ondansetron 2019-10 Yes [id number] 4mg Take 1 Univers 4 mg 2-07 tablet by ity of disintegrat 00:00: mouth [place] ing tablet 00 every 8 Medica l (eight) Branch hours as needed for Nausea and Vomiting (N/V). ondansetron 2019-10 Yes [id number] 4mg Take 1 Univers 4 mg 2-07 tablet by ity of disintegrat 00:00: mouth [place] ing tablet 00 every 8 Medica l (eight) Branch hours as needed for Nausea and Vomiting (N/V). ondansetron 2019-10 Yes [id number] 4mg Take 1 Univers 4 mg 2-07 tablet by ity of disintegrat 00:00: mouth [place] ing tablet 00 every 8 Medica l (eight) Branch hours as needed for Nausea and Vomiting (N/V). ciprofloxac 2019 Yes 500 mg = 1 Memoria in 500 mg 4-04 tab, PO, l oral tablet 17:35: [id number], X Yonis 00 4 day, # 8 [...] 4-04 tab, PO, l oral tablet 17:35: [id number], X [place] 00 4 day, # 8 tab, 0 [...] s with feeding tube less than 14 [place] (Dobhoff, J-tube etc) and pediatric and patients. Potassium No Notes: Memori a Chloride 4-03 (Same as: l 13:26: K-Dur 20) [place] "Do Not Crush" Give with food and full glass of water For patients unable to swallow tablet, dissolve in one half glass of water. Allow about 2 minutes for the tablets to disintegra te. Stir before giving to prepare slurry and administer . Please exclude Patient s with feeding tube less than 14 [place] (Dobhoff, J-tube etc) and pediatric and patients. Strattera No 0.5 mg/kg, Me moria 01-24 Route: PO, l 14:00: QAM, Yonis Dosing Weight 75, kg, Start date: 01/24/19 9:00:00 CDT, Duration: 30 day, Stop date: 02/22/19 9:00:00 CDT Strattera 0 No 0.5 mg/kg, Me moria 402 Route: PO, l 14:00: QAM, [place] 00 Dosing Weight 75, kg, Start date: [...] Memoria 4- (Same as: l 15:00: Flagyl) [place] 00 Take with food/ avoid alcohol Cipro No Notes: February Memori a 4- interfere l 15:00: w/enteral [place] 00 feedings - Take 1 hr before [...] PO, ONCE, l mEq oral 14:20: 0 [place] tablet, 00 Refill(s) extended release Metronidazo No 500 mg, Mem oria le 500 MG 4-01 PO, l Oral Tablet 14:20: [id number], 0 [place] [Flagyl] 00 Refill(s) Ciprofloxac No 500 mg, Mem oria in 500 MG 01 PO, l Oral Tablet 14:20: [id number], 0 [place] [Cipro] 00 Refill(s) potassium Yes 40 mEq, Memor ia chloride 20 -01 PO, ONCE, l mEq oral 14:20: 0 [place] tablet, 00 Refill(s) extended release Metronidazo No 500 mg, Mem oria le 500 MG 4-01 PO, l Oral Tablet 14:20: [id number], 0 [place] [Flagyl] 00 Refill(s) Ciprofloxac No 500 mg, Mem oria in 500 MG 4-01 PO, l Oral Tablet 14:20: [id number], 0 Yonis [Cipro] 00 Refill(s) Potassium No [...] s with feeding tube less than 14 [place] (Dobhoff, J-tube etc) and pediatric and patients. [...] s with feeding tube less than 14 [place] (Dobhoff, J-tube etc) and pediatric and patients. [...] tab, PO, l Tablet 21:08: BID, 0 [place] [Risperdal] 00 Refill(s) Strattera Yes 0.5 mg/kg, [...] tab, PO, l Tablet 21:08: BID, 0 [place] [Risperdal] 00 Refill(s) Zosyn No Notes: Memoria [...] oria 3-31 to exceed l 15:03: 400mg/day. [place] 00 (Same As: Ultram) Tramadol No Notes: [...] 01-22 Route: IM, l 09:47: Drug form: [place] 00 PDR/INJ, PRN, Dosing Weight 75.994, kg, [...] 01-22 Route: IM, l 09:47: Drug form: [place] PDR/INJ, PRN, Dosing Weight 75.994, kg, PRN Blood Glucose Results, Start date: 01/22/19 4:47:00 CDT, Duration: 30 day, Stop date: 02/21/19 4:46:00 CDT Dextrose 2018- No 12.5 gm, Memor ia 50% Syringe 3-31 25 mL, l 09:47: Route: [place] 00 IVP, Drug Form: INJ, Dosing Weight [...] moria IV 3-31 1,000 l 08:52: ml/hr, [place] 00 Infuse Over: 1 hr, Route: IV, [...] 0.9% 3-31 Same as: l 04:52: BD [place] Posiflush Sterile NS (Bolus) No 1,000 mL, Me moria IV 3-31 1,000 l 04:51: ml/hr, [place] 00 Infuse Over: 1 hr, Route: IV, 1,000, Drug form: INJ, ONCE, Priority: STAT, Dosing Weight 75.994 kg, Start date: 01/21/19 23:51:00 CDT, Stop date: 01/21/19 23:51:00 CDT NS (Bolus) No 1,000 mL, Me moria IV 01-22 1,000 l 04:51: ml/hr, [place] 00 Infuse Over: 1 hr, Route: IV, [...] HYDROBROMID 8-15 mouth. ity of E 19:02: [place] (CITALOPRAM 27 Medical ORAL) Branch ibuprofen 2016-0 Yes 200mg Take 200 Uni vers (ADVIL) 200 8-15 mg by ity of mg tablet 14:02: mouth [place] [address] every 6 Medical (six) Branch hours as needed. CLONAZEPAM 2016-0 Yes Take by Uni vers (KLONOPIN 8-15 mouth. ity of ORAL) 14:02: [address] Branch CITALOPRAM 2016-0 Yes Take by Uni vers HYDROBROMID 8-15 mouth. ity of E 14:02: [place] (CITALOPRAM 27 Medical ORAL) Branch ibuprofen 2016-0 Yes 200mg Take 200 Uni vers (ADVIL) 200 8-15 mg by ity of mg tablet 14:02: mouth [place] [address] every 6 Medical (six) Branch hours as needed. CLONAZEPAM 2016-0 Yes Take by Uni vers (KLONOPIN 8-15 mouth. ity of ORAL) 14:02: [address] Branch CITALOPRAM 2016-0 Yes Take by Uni vers HYDROBROMID 8-15 mouth. ity of E 14:02: [place] (CITALOPRAM 27 Medical ORAL) Branch ibuprofen 2016-0 Yes 200mg Take 200 Uni vers (ADVIL) 200 8-15 mg by ity of mg tablet 14:02: mouth [place] [address] every 6 Medical (six) Branch hours as needed. CLONAZEPAM 2016-0 Yes Take by Uni vers (KLONOPIN 8-15 mouth. ity of ORAL) 14:02: [place] [address] Medical Branch CITALOPRAM 2016-0 Yes Take by Uni vers HYDROBROMID 8-15 mouth. ity of E 14:02: [place] (CITALOPRAM 27 Medical ORAL) Branch misoprostol 2016-0 [...] H it y of en-caff 00:00: PRN. [place] (ESGIC) 00 Medical 50-325-40 Branch mg tablet butalbital- 2015-0 Yes TK 1 TO 2 U nivers acetaminoph 8-01 T PO Q 8 H it y of en-caff 00:00: PRN. [place] (ESGIC) 00 Medical 50-325-40 Branch mg tablet butalbital- 2015-0 Yes TK 1 TO 2 U nivers acetaminoph 8-01 T PO Q 8 H it y of en-caff 00:00: PRN. [place] (ESGIC) 00 Medical 50-325-40 Branch mg tablet butalbital- 2016-0 Yes TK 1 TO 2 U nivers acetaminoph 8-01 T PO Q 8 H it y of en-caff 00:00: PRN. [place] (ESGIC) 00 Medical 50-325-40 Branch mg tablet dextroamphe 0 Yes TK 1 T PO U nivers tamine-amph 7-20 BID. ity of etamine 00:00: [place] (ADDERALL) 00 Medical 20 mg Branch tablet dextroamphe Yes TK 1 T PO U nivers tamine-amph 7-20 BID. ity of etamine 00:00: [place] (ADDERALL) 00 Medical 20 mg Branch tablet dextroamphe Yes TK 1 T PO U nivers tamine-amph 7-20 BID. ity of etamine 00:00: [place] (ADDERALL) 00 Medical 20 mg Branch tablet [...] 2021-09-10 08:01:00 138 mm[Hg] Univer sity of [facility] Diastolic blood 2021-09-10 08:01:00 97 mm[Hg] Unive rsity of [facility] Heart rate 2021-09-10 08:01:00 87 /min [facility] Respiratory rate 2021-09-10 08:01:00 20 /min [facility] [place] [facility] Oxygen saturation in 2021-09-10 08:01:00 98 /min University of Arterial blood by [place] Be my eyes [facility] Pulse oximetry Branch Body temperature 2021-09-10 04:28:51 37.17 Ruthann [facility] [place] [facility] Body height 2021-09-10 04:26:[address] [facility] Body weight 2021-09-10 04:26:[address] [facility] BMI 2021-09-10 04:26:00 34.01 kg/m2 [facility] Systolic blood 2021-09-09 20:06:00 150 mm[Hg] Univer sity of [facility] Diastolic blood 2021-09-09 20:06:00 89 mm[Hg] Unive rsity of [facility] Heart rate 2021-09-09 20:06:00 108 /min [facility] Body temperature 2021-09-09 20:06:00 37.22 Ruthann [facility] [place] [facility] Respiratory rate 2021-09-09 20:06:00 18 /min Univ [facility] [place] [facility] Oxygen saturation in 2021-09-09 20:06:00 99 /min University of Arterial blood by [employer] nicky Pulse oximetry Branch Body weight 2021-09-09 20:05:00 81.647 kg [facility]i [facility] [place] [facility] BMI 2021-09-09 20:05:00 32.40 kg/m2 [facility] [place] [facility] Systolic blood 2020-09-30 14:00:00 126 mm[Hg] Univer sity of pressure [place] [facility] Diastolic blood 2020-09-30 14:00:00 84 mm[Hg] Unive rsity of pressure [place] [facility] Heart rate 2020-09-30 14:00:00 79 /min [facility]i ty [facility] [place] [facility] Oxygen saturation in 2020-09-30 14:00:00 98 /min University of Arterial blood by [facility] nicky Pulse oximetry Branch Body temperature 2020-09-30 13:26:00 37.22 Ruthann Univ ersity of [place] [facility] Respiratory rate 2020-09-30 13:26:00 16 /min Univ ersity [facility] [place] [facility] Body weight 2020-09-30 13:26:00 72.576 kg [facility]i ty [facility] [place] [facility] BMI 2020-09-30 13:26:00 28.80 kg/m2 [facility] [place] [facility] Systolic blood 2020-09-30 14:00:00 126 mm[Hg] Univer sity of pressure [place] [facility] Diastolic blood 2020-09-30 14:00:00 84 mm[Hg] Unive rsity of pressure [place] [facility] Heart rate 2020-09-30 14:00:00 79 /min [facility] [place] [facility] Oxygen saturation in 2020-09-30 14:00:00 98 /min University of Arterial blood by [facility] nicky Pulse oximetry Branch Body temperature 2020-09-30 13:26:00 37.22 Ruthann Univ ersity of [place] [facility] Respiratory rate 2020-09-30 13:26:00 16 /min Univ ersity [facility] [place] [facility] Body weight 2020-09-30 13:26:00 72.576 kg [facility] [place] [facility] BMI 2020-09-30 13:26:00 28.80 kg/m2 [facility] [place] [facility] Temperature Oral (F) 2019-01-28 01:16:00 98.6 F [facility] Yonis Systolic (mm Hg) 2019-01-28 01:16:00 Estrada rial [place] Diastolic (mm Hg) 2019-01-28 01:16:00 Mem orial [place] Heart Rate 2019-01-28 01:16:00 [facility] [place] Respitory Rate 2019-01-28 01:16:00 Memori al [place] Systolic (mm Hg) 2019-01-27 20:42:00 Estrada rial [place] Diastolic (mm Hg) 2019-01-27 20:42:00 Mem orial Yonis Heart Rate 2019-01-27 20:42:00 [facility] [place] Respitory Rate 2019-01-27 20:42:00 Memori al [place] Temperature Oral (F) 2019-01-27 20:42:00 98.5 F [facility] [place] Systolic (mm Hg) 2019-01-27 17:00:00 Estrada rial Y[place] Diastolic (mm Hg) 2019-01-27 17:00:00 Mem orial [place] Temperature Oral (F) 2019-01-27 17:00:00 98.5 F [facility] [place] Heart Rate 2019-01-27 17:00:00 [facility] [place] Respitory Rate 2019-01-27 17:00:00 [facility] [place] Height 2019-01-22 14:35:00 157.48 cm [facility] BMI Calculated 2019-01-22 14:35:00 [facility] [place] Weight 2019-01-22 14:35:00 [facility] [place] Weight 2019-01-22 04:34:00 [facility] Procedure Date / Time Performing Clinician Source Performed URINALYSIS 2021-09-10 06:03:00 Neena Bradford [facility] URINE DRUG (IMMUNOASSAY) 2021-09-10 06:03:00 Neena Bradford [facility] SCREEN W/O REFLEX XR CHEST 1 VW 2021-09-10 04:57:30 Neena Bradford [facility] CREATINE KINASE 2021-09-10 04:39:00 Neena Bradford [facility] MAGNESIUM 2021-09-10 04:39:00 Neena Bradford [facility] TROPONIN I 2021-09-10 04:39:00 Neena Bradford [facility] COMP. METABOLIC PANEL 2021-09-10 04:39:00 Neena Bradford [facility] ([id number]) Medical [facility] CBC WITH DIFF 2021-09-10 04:39:00 Neena Bradford [facility] PROTHROMBIN TIME / INR 2021-09-10 04:39:[address] [facility] ACTIVATED PARTIAL 2021-09-10 04:39:00 Neena Bradford [facility] THRFormerly [facility] N-TERMINAL PRO-BNP 2021-09-10 04:39:00 Neena Bradford [facility] COVID-[facility] (ID NOW RAPID 2021-09-10 04:39:00 Neena Bradford [facility] TESTING) Medical Branch TROPONIN I 2021-09-09 21:49:00 [facility] COMP. METABOLIC PANEL 2021-09-09 21:49:00 MillerLuanne [facility] ([id number]) Medical Branch LITHIUM 2021-09-09 21:49:00 [facility] CBC WITH DIFF 2021-09-09 21:49:00 [facility] CONSENT/REFUSAL FOR 2021-09-09 19:51:22 Doctor Unassigned, No Un [facility] DIAGNOSIS AND TREATMENT Name Medical Branch URINALYSIS 2020-09-30 13:27:00 Jackson, [facility] ADC,CLC OR LCC ONLY - 2020-09-30 13:27:00 JacksonChuy aleman [facility] INFLUENZA A & B DIRECT Medical B ranch ANTIGEN COVID-19 (ID NOW RAPID 2020-09-30 13:27:00 JacksonChuy [facility] TESTING) Medical Branch Encounters Start End Encounter Admission Attending Care Care Encounter Source Date/Time Date/Time Type Type Clinicians Facility Department ID 2021-09-08 Outpatient Humaira-Mbayo VFP VFP [id number] [place] 02:24:16 _A_ [id number] Family Practic e 2021-09-07 Outpatient Humaira-Mbayo VFP VFP [id number] [place] 22:13:27 _A_AH [id number] Family Practic e 2021-09-07 Outpatient Humaira-Mbayo VFP VFP [id number] [place] 13:23:42 _A_ [id number] Family Practic e 2021-09-06 Outpatient Humaira-Mbayo VFP VFP [id number] [facility] 04:23:58 _A_AH [id number] Family Practic e 2021-09-05 Outpatient Bernadine [facility] [id number] [facility] 19:22:48 _A_AH [id number] Family Practic e 2019-01-22 Inpatient E [facility] MED [id number] [facility] W 04:39:00 2021-09-09 2021-09-10 Emergency Sanchez [facility] [id number] Univers 22:20:00 03:02:00 Neena JIMENEZ 350.1.13.10 i ty of [place] 4.2.7.2.686 [facility] [id number] [address] 2021-09-09 2021-09-10 Emergency X SANCHEZ [facility] ERT [id number] Univers 22:20:00 03:02:00 NEENA cherrie [facility] 2021-09-09 2021-09-10 Emergency X SANCHEZ [facility] ERT [id number] Univers 22:20:00 03:02:00 NEENA tubbs [facility] 2021-09-09 2021-09-09 Emergency Julia [facility] [id number] Univers 14:07:00 17:35:00 Luanne JIMENEZ 350.1.13.10 i ty of [place] 4.2.7.2.686 [facility] [id number] [address] 2021-09-09 2021-09-09 Orders Doctor BELKYS [id number] Univers 00:00:00 00:00:00 Only Unassigned, LANA 350.1.13.10 ity of [place] [facility] 4.2.7.2.686 Joe [id number] [facility] 009 Branch 2020-09-30 2020-09-30 Emergency Singer CASARAI [id number] 07:22:00 08:18:00 Chuy Jimenez 350.1.13.10 [place] 4.2.7.2.686 Nah[place] [id number] 2020-09-30 2020-09-30 Emergency Singer CASARAI [id number] Univers 07:22:00 08:18:00 Chuy Jimenez 350.1.13.10 i ty lev [place] 4.2.7.2.686 [facility] [id number] [place] [address] Branch 2020-09-30 2020-09-30 Emergency X SINGER [facility] ERT [id number] Univers 07:22:00 07:22:00 CHUY tubbs [facility] 2020-03-04 2020-03-14 Inpatient 3 Johnnie Eldridgekeel [facility] PSY [id number] 15:38:00 15:25:00 Chente [facility] 2019-01-22 2019-01-28 Inpatient [facility] [id number] Memoria 04:33:00 04:40:00 r Yonis 00 l [facility] 2018-02-21 2018-02-20 Inpatient E [facility] MED [id number] 14:48:00 13:18:00 [facility] Results Test Description Test Time Test Comments Results Result Comments Source TROPONIN I 2021-09-10 05:26:53 Test Item Value Reference Range Interpretation Comme nts TROPONIN I (test code = 0.003 ng/mL See_Comment [Au tomated message] The 0645991061) system which ge nerated this result tra [...] biotin. Lab Interpretation Normal (test code = 20340-8) [id number] 05:24:16 Test Item Value Reference Range Interpretation Comments NT-proBNP (test code 35 pg/mL See_Comment [Autom ated = 5917778015) message] The system which generated this result transmitted reference range : <=125. The reference range was not used to interpret this result as normal/abnormal . PERRY (test code = PERRY) Biotin has been reported to cause a negative bias, interpret results relative to patient's use of biotin. Lab Interpretation Normal (test code = 99663-2) [facility] 05:16:51 Test Item Value Reference Range Interpretation Comments MAGNESIUM (test code = 8819424297) 1.8 mg/dL 1.7-2.4 Lab Interpretation (test code = Normal 11631-0) [facility]. METABOLIC PANEL (01851)2021-09-10 05:16:31 Test Item Value Reference Range Interpretation Comments NA (test code = 139 mmol/L 135-145 1586961962) K (test code = 4.0 mmol/L 3.5-5.0 4015440281) CL (test code = 108 mmol/L 98-108 7036604933) CO2 TOTAL (test code 25 mmol/L 23-31 = 7640826222) AGAP (test code = 2-16 7416306635) BUN (test code = 14 mg/dL 7-23 4232231931) GLUCOSE (test code = 88 mg/dL 70-110 7431746146) CREATININE (test code 0.89 mg/dL 0.50-1.04 = 0313895327) TOTAL BILI (test code 0.5 mg/dL 0.1-1.1 = 4808394437) CALCIUM (test code = 10.3 mg/dL 8.6-10.6 1793705666) T PROTEIN (test code 6.9 g/dL 6.3-8.2 = 0335216641) ALBUMIN (test code = 4.3 g/dL 3.5-5.0 8780136408) ALK PHOS (test code = 72 U/L 34-122 7801416266) ALTv (test code = 17 U/L 5-35 1742-6) AST(SGOT) (test code 29 U/L 13-40 = 6300046751) eGFR (test code = mL/min/1.73m2 6183757772) PERRY (test code = PERRY) Association of [...] or urine or abnormalities in imaging tests). [facility] [id number] 05:16:16 Test Item Value Reference Range Interpretation Comments CK (test code = 8556135085) 267 U/L 33-194 H Lab Interpretation (test code = Abnormal 42800-5) [facility] THRMPLAS [id number] 05:05:32 Test Item Value Reference Range Interpretation Comments APTT Patient (test See_Comment [Automat ed code = 3173-2) message] The system which generated this result transmitted reference range : 23 - 38 Seconds . The reference range was not used to interpr et this result as normal/abnormal . PERRY (test code = PERRY) The [facility] patient population mean normal value for aPTT is 30 seconds. Lab Interpretation Normal (test code = 85142-0) [facility] / [id number] 05:03:30 Test Item Value Reference Range Interpretation [...] tions. Lab Interpretation (test Normal code = 30839-6) [facility] WITH [id number] 04:57:13 Test Item Value Reference Range Interpretation Comments WBC (test code = See_Comment [Automated 7990-2) message] The sy stem which generated this [...] RDW-SD (test code = 41.2 fL 39.0-49.9 77273-5) RDW-CV (test code = 13.0 % 12.0-15.5 788-0) PLT (test code = See_Comment H [Automated 777-3) message] The sy stem which generated this result transmitted reference range : 166 - 358 10*3/ ?L. The reference r katie was not used to interpret this result as normal/abnormal . MPV (test code = 9.6 fL 9.5-12.9 49371-7) NRBC/100 WBC (test See_Comment [Automat ed code = 0607621938) message] The system which generated this result transmitted reference range : 0.0 - 10.0 /100 WBCs. The refer ence range was not u sed to interpret th is result as normal/abnormal . NRBC x10^3 (test code <0.01 See_Comment [Auto mated = 6093956946) message] The s ystem which generated this result transmitted reference range : 10*3/?L. The reference range was not used to interpret this result as normal/abnormal . GRAN MAT (NEUT) % 61.9 % (test code = 770-8) IMM GRAN % (test code 0.30 % = 0990582252) LYMPH % (test code = 26.0 % 736-9) MONO % (test code = 9.5 % 5905-5) EOS % (test code = 1.6 % 713-8) BASO % (test code = 0.7 % 706-2) GRAN MAT x10^3(ANC) 5.91 10*3/uL 1.88-7.09 (test code = 9100990611) IMM GRAN x10^3 (test 0.03 10*3/uL 0.00-0.06 code = 4754858473) LYMPH x10^3 (test code 2.48 10*3/uL 1.32-3.29 = 731-0) MONO x10^3 (test code 0.91 10*3/uL 0.33-0.92 = 742-7) EOS x10^3 (test code = 0.15 10*3/uL 0.03-0.39 711-2) BASO x10^3 (test code 0.07 10*3/uL 0.01-0.07 = 704-7) Lab Interpretation Abnormal (test code = 31829-2) [facility] [id number] 22:24:55 Test Item Value Reference Interpretation Comments Range TROPONIN I (test 0.002 ng/mL See_Comment [Automated code = 5212331992) message] The system which generated this result [...] biotin. Lab Interpretation Normal (test code = 83759-6) [facility] 22:24:34 Test Item Value Reference Range Interpretation Comments [place] (test code = <0.2 0.6-1.2 L 4072011912) PERRY (test code = PERRY) Toxic Range: ? Greater than 1.2 mmol/L Lab Interpretation (test Abnormal code = 51576-5) [facility]OL[facility] (83401)2021-09-09 22:13:54 Test Item Value Reference Range Interpretation Comments NA (test code = 139 mmol/L 135-145 3767082838) K (test code = 4.0 mmol/L 3.5-5.0 2167060067) CL (test code = 105 mmol/L 98-108 4374571646) CO2 TOTAL (test code 26 mmol/L 23-31 = 8451330364) AGAP (test code = 2-16 9748789461) BUN (test code = 11 mg/dL 7-23 4644482750) GLUCOSE (test code = 109 mg/dL 70-110 4807513841) CREATININE (test code 0.71 mg/dL 0.50-1.04 = 1563027069) TOTAL BILI (test code 0.6 mg/dL 0.1-1.1 = 8056087994) CALCIUM (test code = 10.4 mg/dL 8.6-10.6 8828194267) T PROTEIN (test code 7.6 g/dL 6.3-8.2 = 0275519577) ALBUMIN (test code = 4.7 g/dL 3.5-5.0 5441212945) ALK PHOS (test code = 78 U/L 34-122 2497309514) ALTv (test code = 19 U/L 5-35 2-6) AST(SGOT) (test code 28 U/L 13-40 = 1234628893) eGFR (test code = mL/min/1.73m2 4061529521) PERRY (test code = PERRY) Association of [...] or urine or abnormalities in imaging tests). [facility] WITH MZLN4652-09-34 22:03:32 Test Item Value Reference Range Interpretation Comments WBC (test code = See_Comment [Automated 3371-2) message] The sy stem which generated this [...] RDW-SD (test code = 40.2 fL 39.0-49.9 64814-6) RDW-CV (test code = 12.9 % 12.0-15.5 788-0) PLT (test code = See_Comment H [Automated 777-3) message] The sy stem which generated this result transmitted reference range : 166 - 358 10*3/ ?L. The reference r katie was not used to interpret this result as normal/abnormal . MPV (test code = 9.4 fL 9.5-12.9 L 61916-0) NRBC/100 WBC (test See_Comment [Automat ed code = 0250480253) message] The system which generated this result transmitted reference range : 0.0 - 10.0 /100 WBCs. The refer ence range was not u sed to interpret th is result as normal/abnormal . NRBC x10^3 (test code <0.01 See_Comment [Auto mated = 9290212282) message] The s ystem which generated this result transmitted reference range : 10*3/?L. The reference range was not used to interpret this result as normal/abnormal . GRAN MAT (NEUT) % 67.1 % (test code = 770-8) IMM GRAN % (test code 1.00 % = 7762222063) LYMPH % (test code = 21.4 % 736-9) MONO % (test code = 7.9 % 5905-5) EOS % (test code = 1.8 % 713-8) BASO % (test code = 0.8 % 706-2) GRAN MAT x10^3(ANC) 7.35 10*3/uL 1.88-7.09 H (test code = 5244430120) IMM GRAN x10^3 (test 0.11 10*3/uL 0.00-0.06 H code = 5152162946) LYMPH x10^3 (test code 2.34 10*3/uL 1.32-3.29 = 731-0) MONO x10^3 (test code 0.86 10*3/uL 0.33-0.92 = 742-7) EOS x10^3 (test code = 0.20 10*3/uL 0.03-0.39 711-2) BASO x10^3 (test code 0.09 10*3/uL 0.01-0.07 H = 704-7) Lab Interpretation Abnormal (test code = 43500-8) [facility] A & B DIRECT GVGVZPZ9526-70-67 14:04:00 Test Item Value Reference Range Interpretation Comments Influenza A (test code = 18085-8) Negative Negative Influenza B (test code = 71000-2) Negative Negative Lab Interpretation (test code = Normal 06432-9) [facility]APID TEST[facility])2020-09-30 14:03:00 Test Item Value Reference Range Interpretation Comments SARS-CoV-2 Rapid ID NOW Not Detected Not Detected (test code = 66448-6) PERRY (test code = PERRY) ID NOW COVID-19 Assay is an isothermal nucleic acid amplification test intended for the qualitative detection of nucleic acid from SARS-CoV-2 viral RNA in nasopharyngeal (MACHINE SET UP TECHNICIAN) specimens. It is used under Emergency Use [...] indicated. Lab Interpretation Normal (test code = 43767-4) [facility] 13[facility]55:00 Test Item Value Reference Range Interpretation Comments APPEARANCE (test code = Hazy Clear A 9877774361) COLOR (test code = Yellow Yellow 6294407421) PH (test code = 4.8-8.0 4020954931) SP GRAVITY (test code = 1.003-1.030 0279788932) GLU U QUAL (test code = Normal Normal 8208219463) BLOOD (test code = Negative Negative 3874511157) KETONES (test code = 5 mg/dL Negative A 4619701342) PROTEIN (test code = Negative Negative 2887-8) UROBILIN (test code = 2.0 mg/dL Normal A 4422357557) BILIRUBIN (test code = Negative Negative 6007433058) NITRITE (test code = Negative Negative 0277633942) LEUK ROZINA (test code = 25/uL Negative A 0339590439) RBC/HPF (test code = See_Comment [Autom ated message] 8119294296) The system [employer] generated this result transmit ngozi reference range : 0 - 3 HPF. The refe rence range was not u sed to interpret th is result as normal/abnormal . WBC/HPF (test code = See_Comment [Autom ated message] 0089203839) The system [employer] generated this result transmit ngozi reference range : 0 - 5 HPF. The refe rence range was not u sed to interpret th is result as normal/abnormal . BACTERIA (test code = Few Negative A 4122264756) MUCOUS (test code = Slight Negative LPF A 1900816592) SQ EPITH (test code = HPF 4140091581) Lab Interpretation (test Abnormal code = 89984-4) [facility] Dysfxbfmumz5966-50-00 16:42:24 Test Item Value Reference Range Interpretation [...] = 10-24-2020 N Expiration Dt) Thyroid Stimulating Vqyewkw9614-68-12 08:35:16 Test Item Value Reference Range Interpretation Comments TSH (test code = TSH) 1.170 mIU/mL 0.270-4.200 Lipid Shsbl0598-19-33 08:21:19 Test Item Value Reference Range Interpretation Comments Cholesterol Total 254 mg/dL 0-200 H RISK OF HE ART (test code = DISEASEPublishe d by Cholesterol Total) [place] Cathie lyte Optimal Borderl ine [...] calculation is LDL/HDL Ratio=L DL Calc/HDL Chol IDESMPNNVYBM7117-31-29 08:24:008.6[facility] VtklzfaZPYJMVQUEDZC8356-56-76 08:24:90389Hbnzlzeb CllbgioLDRSEWENMAPB4248-66-07 08:24:0027[facility] WPZRTPHOATFY5398-84-97 08:24:09839Knyainsn HympqrmKOHGXEXUEQLK2762-64-94 08:24:003.6[facility] JafjhtxKJGBNIRXNTQT9538-20-42 08:24:000.70[facility] WMDWRRHRIXSM5144-68-82 08:24:008.4[facility] AdlrgfqAWAWOLIHZXLG6118-13-50 08:24:12784Ixmjnbyp BlsqnlvSKFQCDIFUOXI8648-33-44 08:24:0086[facility] IKWBPERLEFPP6637-86-72 08:24:006[facility] JsbznbkQSMMBOGGIL6515-92-86 08:24:00 11.6[facility] DqqaedeNYCIMWOJXX9059-72-97 08:24:003.78[facility]annHEMATOLOGY 2019-01-26 08:24:0013.3[facility] VwtgrqsTTNOCEBQNE3100-83-05 08:24:0034.0[facility] RkyvlcfHEWRGLLAVH7944-78-31 08:24:006.3[facility] EliqsmyABESSOSOXP6258-50-77 08:24:00 Test Item Value Reference Range Interpretation Comments MCH (test code = MCH) 30.7 pg 27.0-31.0 [facility] XarnepmLMCKNEQAVH0558-50-74 08:24:0090.3[facility] HermannHEMATOLOGY 2019-01-26 08:24:0034.2[facility] NfwrpjjYJHZUCERUY8150-99-58 08:24:70468Gcwdtmsj TyuobwmDXTSMDUDGZ2472-63-26 08:24:007.5[facility] IvzxsayTWUNKTPWMNAR2865-53-00 08:24:008.6[facility] XcgvtawIEFOHJMEDNCK2023-55-35 08:24:22784Zncazraw Oynis KZVOKSKOTWRX5918-92-10 08:24:0027[facility] PhblkkwDZQEHCDORUWH1439-79-75 08:24:00 139[facility] ZwawdhxUWJMWCEWJIMF5624-45-67 08:24:003.6[facility] MXRXJJVISOUB3740-39-34 08:24:000.70[facility] QevdhdxRDVKNHWYQGUJ2337-24-49 08:24:008.4[facility] MhheehyBFPXJYZAZNEA5310-38-62 08:24:69856Rcgrzwmv [facility] INYSAQNVIUHI0849-85-74 08:24:0086[facility] NdaukhaXMEYRUXMXGSY9105-28-34 08:24:00 6[facility] NynsubmULOYGORJWK8781-67-44 08:24:0011.6[facility]annHEMATOLOGY 2019-01-26 08:24:003.78[facility] PotjwdfWSKEZRNOGG9135-66-31 08:24:0013.3[facility] NeqdvrhWGPXDUCYOC0112-21-21 08:24:0034.0[facility] VshhdggYRXZCNNVCG5875-21-42 08:24:006.3[facility] QimfvwjRVVJQAIHUM9681-40-13 08:24:00 Test Item Value Reference Range Interpretation Comments MCH (test code = MCH) 30.7 pg 27.0-31.0 [facility] AwvnjpfKZYCGWWPUG2321-55-05 08:24:0090.3[facility]annHEMATOLOGY 2019-01-26 08:24:0034.2[facility] CcyswtnPLGBZIVFGS3467-09-36 08:24:35255Yueoikdi WcgkhblZHEZXHNSRJ7726-34-02 08:24:007.5[facility] HermannCHEM HKONO0696-96-49 09:14:77982Guhrlpry HermannCHEM TARVE1090-35-99 09:14:008.5[facility]annCHEM CQWHY0030-58-80 09:14:0013.3[facility]annCHEM LACNG8774-42-47 09:14:0024 [facility]annCHEM JHEWP9364-38-76 09:14:11959Jkwxtqoc HermannCHEM PANEL 2019-01-25 09:14:0081[facility]annCHEM WWVFC7414-15-32 09:14:002[facility]annCHEM OJOAO2831-11-35 09:14:003.3[facility]annCHEM YZZIO3697-80-69 09:14:000.60[facility]annCHEM YGSAH2987-75-47 09:14:48901Ndrnplbr HermannCHEM THCAH5693-44-22 09:14:36462Rledmxyv HermannCHEM QUBOR4748-36-05 09:14:008.5 [facility]annCHEM BAIDY4127-66-58 09:14:0013.3[facility]annCHEM PANEL 2019-01-25 09:14:0024[facility]annCHEM ZLISU3783-25-97 09:14:68744Mkvjvcsa HermannCHEM TCFFT3252-15-45 09:14:0081[facility]annCHEM QAWMU7179-07-11 09:14:002[facility]annCHEM VTWNE9965-80-88 09:14:003.3[facility]annCHEM KLVYZ0951-27-06 09:14:000.60[facility]annCHEM NAWZY4570-63-68 09:14:95711 [facility]annMOLECULAR SCFGKDIDUY4646-60-58 16:22:00Negative (01/23/19 11:22 AM)[facility] HermannMOLECULAR NOQMJLYEJD0541-23-69 16:22:00Negative (01/23/19 11:22 AM)[facility]annCHEM VJGRZ3870-20-86 15:42:002.76[facility]annCHEM PANEL 2019-01-23 15:42:002.76[facility]annCHEM ZMCUM6363-40-94 12:32:000.9[facility]annCHEM KKWKM4034-09-90 12:32:000.9[facility]annCHEM CJPBE1638-28-62 10:50:002.0[facility]annCHEM VILDT6675-81-14 10:50:43780Qjswzwlr HermannCHEM XAQQJ0038-79-76 10:50:0023[facility]annCHEM BLFYQ1770-07-82 10:50:17733 [facility]annCHEM USNHL9712-53-39 10:50:003.1[facility]annCHEM PANEL 2019-01-23 10:50:59584Uiujdbbq HermannCHEM PTWCS2417-52-17 10:50:005[facility]annCHEM UPRNS3032-27-17 10:50:000.50[facility]annCHEM BAQTV0318-03-66 10:50:007.8[facility]annCHEM BMGYX5976-84-04 10:50:0083[facility]annCHEM YAOCE3790-30-77 10:50:0010.1[facility] OvcsgalULUVDIDQFW7718-58-29 10:50:000.2 [facility] CvjjhzcEAMJZCESVX6770-47-47 10:50:000.8[facility]annHEMATOLOGY 2019-01-23 10:50:005.5[facility] HqpizpjDWGHUFSBMD9509-59-53 10:50:002.2[facility] XhgtbyrLCXKBKETIQ0887-99-76 10:50:000.1[facility] FjhnfwqCFBTGUBSES8993-99-17 10:50:0063.6[facility] SeqovuuTSAIMWSTSI4936-51-54 10:50:008.9[facility] OUIZJHYFMT4184-93-94 10:50:002.3[facility] GbkmhgxAFAVEJANBL2377-34-34 10:50:00 Normal (01/23/19 5:50 AM)[facility] VetgamhAWHKTCVPIP8506-27-77 10:50:00Normal (01/23/19 5:50 AM)[facility] NfiyrwxIBTYEQBHSB8947-83-50 10:50:0025.1[facility] HeklgqhUCMIFWCOGQ0568-04-71 10:50:0013.1[facility] UlwwvuqOQVEDDNPAA4150-58-34 10:50:85427Rwueuhkv BomxopqCTLJBJCNVC3241-89-07 10:50:007.7[facility] BHZRYNUIYO9676-86-49 10:50:008.6[facility] CkummsuIYHCULJCCK8273-47-66 10:50:00 10.0[facility] HlvosvxSPPIRTKAQN7515-81-39 10:50:0034.[facility]annHEMATOLOGY 2019-01-23 10:50:0028.7[facility] PneufxgPDKLCFFFPC4023-50-99 10:50:0087.8[facility] RxcmryrFJLIESNGOB7982-15-03 10:50:00 Test Item Value Reference Range Interpretation Comments MCH (test code = MCH) 30.4 pg 27.0-31.0 [facility] WpdekzqPOHJDWBHGL5507-50-17 10:50:003.27[facility]annHEMATOLOGY 2019-01-23 10:50:65219Vcelblfl WvctlzfUTCLIBHFEF6455-68-09 10:50:007.7[facility] EysjbabSYVLAKMYPZ0069-41-75 10:50:008.[facility] KwinrboPNTKTMCAWS3798-61-63 10:50:0010.0[facility] VjfeeixGBFCPBTYUO3945-26-57 10:50:0034.[facility] UUBCNVSRHH2300-45-98 10:50:0028.7[facility] XvqqldsWFOSUCLKOE4062-68-18 10:50:00 87.8[facility] WijsxzqGEBMQMBRQL0686-31-23 10:50:00 Test Item Value Reference Range Interpretation Comments MCH (test code = MCH) 30.4 pg 27.0-31.0 [facility] EpcoxcyIDQVQGJVFC0526-20-67 10:50:003.27[facility] HermannCHEM PANEL 2019-01-23 10:50:002.0[facility] HermannCHEM RVXBE4016-62-06 10:50:33835Sjmwnqzu HermannCHEM VBCWO8929-87-49 10:50:0023[facility]annCHEM XNCRW6090-57-92 10:50:04874Kpzopaol HermannCHEM TVFMQ7108-26-86 10:50:003.1[facility] HermannCHEM BDINS8594-23-75 10:50:08172Qmiexasb HermannCHEM ITMEU1537-50-78 10:50:005 [facility]annCHEM NYDAO5988-55-83 10:50:000.50[facility]annCHEM PANEL 2019-01-23 10:50:007.8[facility]annCHEM EFDPM0126-50-80 10:50:0083[facility]annCHEM SOYOV5342-46-11 10:50:0010.1[facility] TlyycizMRYDIGWLDM5257-38-12 10:50:000.2[facility] JhzfmvvAJYHAWSUSS4615-81-86 10:50:000.8[facility] RADWDSWIXZ3986-92-27 10:50:005.5[facility] RbqmemsTJETWZBVUN8374-54-62 10:50:002.2 [facility] XsbzmbaNFMSIEJLDD9126-65-59 10:50:000.1[facility] HermannHEMATOLOGY 2019-01-23 10:50:0063.6[facility] FoeosbrXFATQWVQQJ8932-84-45 10:50:008.9[facility] OmcudjbUJJASIJPMK2024-82-97 10:50:002.3[facility] KjvfdlvCMXTLCUBXM4646-54-49 10:50:00Normal (01/23/19 5:50 AM)[facility] KnewjgsAHFJYBNNAK0507-76-19 10:50:00 Normal (01/23/19 5:50 AM)[facility] CgbomfxDRPHCRIAQL4438-74-19 10:50:0025.1[facility] VuqaybmYYBFBFXATK4290-25-14 10:50:0013.1[facility] HermannCHEM IKKLW2232-35-90 11:32:002.4[facility] HermannCHEM IHMVJ1342-32-84 11:32:002.4[facility] HermannCHEM WXGLH4099-48-30 09:04:003.0[facility] HermannCHEM ASIFE1265-50-47 09:04:003.0 [facility]UR[facility] AND EDPBY3661-26-75 07:14:00 Test Item Value Reference Range Interpretation Comments UA Spec Grav (test code = UA Spec 1.014 1 Grav) [facility] RSYAZ3294-50-81 07:14:00 Test Item Value Reference Range Interpretation Comments UA pH (test code = UA pH) 6.0 1 5.0-8.0 [facility] SOSQD6584-63-98 07:14:00Negative (01/22/19 2:14 AM) [facility] QSRDM8038-54-80 07:14:00Negative *NA*(01/22/19 2:14 AM) [facility] VJFCP2312-60-30 07:14:00Negative *NA*(01/22/19 2:14 AM) [facility] ATHHD7517-51-40 07:14:00Negative *NA*(01/22/19 2:14 AM) [facility] MOQZP6816-90-08 07:14:00Negative (01/22/19 2:14 AM) [facility] LFBYG4637-33-38 07:14:00Negative (01/22/19 2:14 AM) [facility] DQECT5152-36-01 07:14:00Negative (01/22/19 2:14 AM) [facility] RSGEU6513-80-98 07:14:00<1[facility] KXHVY2719-43-36 07:14:0025[facility] SCHDN7666-92-30 07:14:002 [facility] IYTSS2905-04-31 07:14:00Light Yellow *NA*(01/22/19 2:14 AM)[facility] CWBGQ2527-27-92 07:14:00Clear (01/22/19 2:14 AM) [facility] GHMAP1391-43-98 07:14:00 Test Item Value Reference Range Interpretation Comments UA Spec Grav (test code = UA Spec 1.014 1 Grav) [facility] FLFRS5569-41-78 07:14:00 Test Item Value Reference Range Interpretation Comments UA pH (test code = UA pH) 6.0 1 5.0-8.0 [facility] CAHQI3403-11-43 07:14:00Negative (01/22/19 2:14 AM) [facility] WVGZB3353-05-37 07:14:00Negative *NA*(01/22/19 2:14 AM) [facility] BVYMY1347-21-02 07:14:00Negative *NA*(01/22/19 2:14 AM) [facility] HYCCR6863-92-86 07:14:00Negative *NA*(01/22/19 2:14 AM) [facility] SEUCU4391-99-49 07:14:00Negative (01/22/19 2:14 AM) [facility] NTOJO3108-48-35 07:14:00Negative (01/22/19 2:14 AM) [facility] VGHWQ8504-90-19 07:14:00Negative (01/22/19 2:14 AM) [facility] VOBJV7639-34-37 07:14:00<1[facility] DGIQW7296-39-77 07:14:0025[facility] PPXWY7827-23-73 07:14:002 [facility] CROPZ1729-52-17 07:14:00Light Yellow *NA*(01/22/19 2:14 AM)[facility] CXJLR5580-45-79 07:14:00Clear (01/22/19 2:14 AM) [facility] BtsnpxqLPXLY9639-65-08 05:16:000.90[facility] KlwakekIEKEI2933-26-59 05:16:000.90[facility] JofxqrxJJGAYRBTFE0085-35-02 05:01:000.0[facility] CKICYUBCBU8252-84-12 05:01:000.9[facility] KxtchgtPRFQLGUYIJ7985-55-67 05:01:008.6 [facility] TcfsasaKHQXOGJAGR5660-13-13 05:01:000.6[facility]annHEMATOLOGY 2019-01-22 05:01:0086.5[facility] PqimvfcUDMMIZDEJT8596-32-99 05:01:005.7[facility] KuontbhGBLYNFLUQT4551-00-37 05:01:006.9[facility] CdizvesRRSLUKYDQF2973-11-99 05:01:009.9[facility] TtrsncgZQNNZNXUAO7951-26-31 05:01:0032.8[facility] XSQEHERZBF5889-90-62 05:01:0013.6[facility] XqituouJRYSPGEHMS9463-99-21 05:01:00 443[facility] DrtwnllMFWVTXBCJH3910-19-55 05:01:007.3[facility]annHEMATOLOGY 2019-01-22 05:01:0014.0[facility] NypfliaYCBLFITRRN3485-19-34 05:01:004.85[facility] QmcfpqzSYBAOVVWHQ3563-67-67 05:01:0042.7[facility] KouwvkoPRQXGPWRNJ1292-41-10 05:01:00 Test Item Value Reference Range Interpretation Comments MCH (test code = MCH) 29.0 pg 27.0-31.0 [facility] BammcdjSRWEDVWMOL3409-04-46 05:01:0088.2[facility]annHEMATOLOGY 2019-01-22 05:01:00 Test Item Value Reference Range Interpretation Comments INR (test code = INR) 0.96 1 0.85-1.17 [facility]mmbmofOTBAZUZNIE5603-76-44 05:01:00 Test Item Value Reference Range Interpretation Comments PT (test code = PT) 12.6 s 12.0-14.7 [facility] WfsjswuOLTHZJSEBZ3799-89-99 05:01:00 Test Item Value Reference Range Interpretation Comments PTT (test code = PTT) 25.9 s 22.9-35.8 [facility] HermannBLOOD BANK BKKYBLT3715-55-16 05:01:00Negative (01/22/19 12:01 AM) [facility]annCARDIAC IFBHJVO8253-68-27 05:01:00<0.02[facility] CARDIAC OQWJPMB4482-67-48 05:01:0049[facility]annCHEM LKVXJ3782-93-85 05:01:000.6[facility] HermannCHEM CVSNQ5306-56-97 05:01:65776Xpbfgijp HermannCHEM VYMNB9749-72-88 05:01:004.0[facility] HermannCHEM IQYWC2088-72-00 05:01:0017 [facility]annCHEM WRHFS4746-60-74 05:01:0025[facility]annCHEM PANEL 2019-01-22 05:01:008.1[facility] HermannCHEM SZPEY2927-82-57 05:01:00 Test Item Value Reference Range Interpretation Comments B/C Ratio (test code = B/C Ratio) 20 1 6-25 [facility]annCHEM UCICF4587-97-92 05:01:00 Test Item Value Reference Range Interpretation Comments A/G Ratio (test code = A/G Ratio) 1.0 1 0.7-1.6 [facility]annCHEM LWXKJ6845-18-19 05:01:004.1[facility]annCHEM PANEL 2019-01-22 05:01:006.90[facility] BqnjrjdNNXCNWAHRIQNS6372-07-01 05:01:00Negative *NA*(01/22/19 12:01 AM)[facility] TxkitgbQVPENOZUXI7273-08-64 05:01:000.1[facility] NvczjzuUNIVPGRVMU1381-22-71 05:01:000.7[facility] MkceeftRTSCGBOCZN3379-12-28 05:01:000.0[facility] WsvbvqlRKTMCGXNCY2490-60-32 05:01:000.0[facility] GYOLQQAQVI9188-84-38 05:01:000.9[facility] RpmuxmzOUSWMDWWPE3767-64-47 05:01:008.6 [facility] CmxrhtjUPQZKSUARU4852-49-62 05:01:000.6[facility]annHEMATOLOGY 2019-01-22 05:01:0086.5[facility] BtxmwurGWMEMJSHMP5591-24-08 05:01:005.7[facility] UriuqvxOOGZARFLMI6214-32-55 05:01:006.9[facility] HqgujkmQBOQFLZDHZ7094-90-10 05:01:009.9[facility] CoabvxeEMFIVRDDZV8369-90-02 05:01:0032.8[facility] QMPZUHVJIZ8651-42-43 05:01:0013.6[facility] KrtpgkpEPUXGDDSWD0974-39-28 05:01:00 443[facility] OlgudfeRHLHEGSJWD4956-93-51 05:01:007.3[facility]annHEMATOLOGY 2019-01-22 05:01:0014.0[facility] DvsdksqOVLUJTXHIS7739-41-24 05:01:004.85[facility] BysnucwGFSZNKJSYE0026-72-72 05:01:0042.7[facility] HjmglqvIYTDTHKDRY6747-34-55 05:01:00 Test Item Value Reference Range Interpretation Comments MCH (test code = MCH) 29.0 pg 27.0-31.0 [facility] JtqtdycJWWCECDHLS5597-69-72 05:01:0088.2[facility]annHEMATOLOGY 2019-01-22 05:01:00 Test Item Value Reference Range Interpretation Comments INR (test code = INR) 0.96 1 0.85-1.17 [facility] BjhuowxNKKVXQJYZT4935-33-61 05:01:00 Test Item Value Reference Range Interpretation Comments PT (test code = PT) 12.6 s 12.0-14.7 [facility] FuxjqceXMJBWJYWVV4504-69-51 05:01:00 Test Item Value Reference Range Interpretation Comments PTT (test code = PTT) 25.9 s 22.9-35.8 [facility] BANK XRLOAKD7385-35-94 05:01:00Negative (01/22/19 12:01 AM) [facility] UUUGVAN8992-58-65 05:01:00<0.02[facility] CARDIAC IDFADBX6932-21-86 05:01:0049[facility] HermannCHEM BBPOT7228-12-14 05:01:000.6[facility] HermannCHEM LRFUJ5804-96-70 05:01:98891Yjhkuwyg HermannCHEM MLYIX1941-28-77 05:01:004.0[facility] HermannCHEM HTABF3522-92-63 05:01:0017 [facility] HermannCHEM [id number] 05:01:0025[facility] HermannCHEM PANEL 2019-01-22 05:01[facility].1[facility] [id number] 05:01:00 Test Item Value Reference Range Interpretation Comments B/C Ratio (test code = B/C Ratio) 20 1 6-25 [facility] [id number] 05:01:00 Test Item Value Reference Range Interpretation Comments A/G Ratio (test code = A/G Ratio) 1.0 1 0.7-1.6 [facility] [id number] 05:01:004.1[facility] PANEL 2019-01-22 05:01:006.90[facility] Cent[id number] 05:01:00Negative *NA*(01/22/19 12:01 AM)[facility] HospitalZmyazbuXEYZZZPDMT0266-00-55 05:01:000.1[facility] CenterRqkwjbhEPWRSNSIAW1007-21-28 05:01:000.7[facility] [id number] 05:01:000.0[facility] [id number] 14:36:00 Test Item Value Reference Range Interpretation [...] 0.00-0.01 N code = ETOHU) Comprehensive Metabolic [id number] 14:36:00 Test Item Value Reference Range Interpretation [...] the [employer],http :[email or web address] ep.nih.gov Urinalysis [id number] 14:32:00 Test Item Value Reference Range Interpretation Comments Color (test code = COLOR) Yellow Yellow,Straw,Pl N yellow Clarity (test code = Clear Clear N CLAR) Specific [place] (test 1.024 1.001-1.035 N code = SPGR) [...] code = Few /HPF BACT) CBC with Rxkcpuljzfqv5582-76-90 14:21:00 Test Item Value Reference Range Interpretation [...] code = ALYMPH) 3.0 K/cumm 0.5-4.6 N [place] Abs (test code = AMONO) 0.5 K/cumm 0.0-1.2 N Eos Abs (test code = AEOS) 0.19 K/cumm 0.00-0.74 N Baso Abs (test code = ABASO) 0.1 K/cumm 0.00-0.21 N
--- NOTE | 2021-09-22 20:52 | ER ---
Nurse's Notes [facility] Name: Tiffany Quinn Age: 51 yrs Sex: Female : 1970 Arrival Date: 09/22/2021 Time: 20:34 Bed Waiting Private MD: Diagnosis: Anxiety disorder, unspecified Presentation: 09/22 20:47 Chief complaint: Patient states: I have been feeling like I can't breathe. 99% RA upon ld1 arrival to ER. Coronavirus screen: At this time, the client does not indicate any symptoms associated with coronavirus-19. Ebola Screen: No symptoms or risks identified at this time. Initial Sepsis Screen: Does the patient meet any 2 criteria? No. Patient's initial sepsis screen is negative. Does the patient have a suspected source of infection? No. Patient's initial sepsis screen is negative. Risk Assessment: Do you want to hurt yourself or someone else? Patient reports no desire to harm self or others. Onset of symptoms was September 22, 2021. 20:47 Method Of Arrival: Ambulatory ld1 20:47 Acuity: MANUEL 4 ld1 Triage Assessment: 20:49 General: Appears in no apparent distress. comfortable, Behavior is calm, cooperative, ld1 appropriate for age. Pain: Denies pain. EENT: No signs and/or symptoms were reported regarding the EENT system. Neuro: Level of Consciousness is awake, alert, obeys commands, Oriented to person, place, time, situation, Appropriate for age. Cardiovascular: Capillary refill < 3 seconds Patient's skin is warm and dry. Respiratory: Airway is patent Respiratory effort is even, unlabored, Respiratory pattern is regular, symmetrical. GI: Abdomen is flat, non-distended. : No signs and/or symptoms were reported regarding the genitourinary system. Derm: No signs and/or symptoms reported regarding the dermatologic system. Musculoskeletal: No signs and/or symptoms reported regarding the musculoskeletal system. 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 - Social history:: Smoking status: Patient denies any tobacco usage or history of. Patient uses street drugs, Patient/guardian denies using alcohol. Screenin:50 Abuse screen: Denies threats or abuse. Denies injuries from another. Nutritional ld1 screening: No deficits noted. Tuberculosis screening: No symptoms or risk factors identified. Fall Risk None identified. Assessment: 20:50 Reassessment: See triage assessment. ld1 Vital Signs: 20:47 BP 116 / 84; Pulse 105; Resp 24; Temp 97.6(TE); Pulse Ox 100% on R/A; Weight 71.21 kg; ld1 Height 5 ft. 2 in. (157.48 cm); Pain 0/10; 20:47 Body Mass Index 28.72 (71.21 kg, 157.48 cm) ld1 ED Course: 20:34 Patient arrived in ED. 20:49 Triage completed. ld1 20:49 Arm band placed on right wrist. ld1 20:50 Patient has correct armband on for positive identification. Bed in low position. Call ld1 light in reach. Side rails up X2. Pulse ox on. NIBP on. Door closed. 20:50 No provider procedures requiring assistance completed. Patient did not have IV access ld1 during this emergency room visit. 20:51 Beatrice Ledezma FNP-C is [facility]. kb 20:51 Manuel Ward MD is Attending Physician. kb Administered Medications: No medications were administered Outcome: 20:51 Discharged to home ambulatory. ld1 20:51 Condition: stable 20:51 Discharge instructions given to patient, Instructed on discharge instructions, follow up and referral plans. Demonstrated understanding of instructions, follow-up care. 20:51 Discharge ordered by . kb 21:01 Patient left the ED. ld1 Signatures: Beatrice Ledezma FNP-C FNP-Ckb Dibbern, Lauren, RN RN ld1 Laly Lutz
--- NOTE | 2021-09-22 20:52 | EDPHYS ---
Physician Documentation [facility] Name: Tiffany Quinn Age: 51 yrs Sex: Female : 1970 Arrival Date: 09/22/2021 Time: 20:34 Bed Waiting Private MD: ED Physician Manuel Ward HPI: 09/22 21:52 This 51 yrs old Female presents to ER via Ambulatory with complaints of Anxiety. kb 21:52 The patient presents to the emergency department with anxiety. Onset: The kb symptoms/episode began/occurred ongoing for a while. Associated signs and symptoms: Pertinent positives; anxiety, shortness of breath. Severity of symptoms: At their worst the symptoms were moderate in the emergency department the symptoms are unchanged. The patient has experienced similar episodes in the past. The patient has been recently seen at the [facility] Emergency Department. Pt states she was having trouble breathing and is anxious so she came to make sure she was ok. 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 - Social history:: Smoking status: Patient denies any tobacco usage or history of. Patient uses street drugs, Patient/guardian denies using alcohol. ROS: 21:52 Constitutional: Negative for fever, chills, and weight loss. kb 21:52 Respiratory: Positive for shortness of breath. 21:52 Psych: Positive for anxiety. 21:52 All other systems are negative. Exam: 21:35 Constitutional: This is a well developed, well nourished patient who is awake, alert, kb and in no acute distress. Head/Face: Normocephalic, atraumatic. ENT: Moist Mucous membranes Cardiovascular: Regular rate and rhythm with a normal S1 and S2. No gallops, murmurs, or rubs. No pulse deficits. Respiratory: Respirations even and unlabored. No increased work of breathing, no retractions or nasal flaring. Skin: Warm, dry with normal turgor. Normal color. MS/ Extremity: Pulses equal, no cyanosis. Neurovascular intact. Full, normal range of motion. Neuro: Awake and alert, GCS 15, oriented to person, place, time, and situation. Moves all extremities. Normal gait. Psych: Awake, alert, with orientation to person, place and time. Behavior, mood, and affect are within normal limits. Vital Signs: 20:47 BP 116 / 84; Pulse 105; Resp 24; Temp 97.6(TE); Pulse Ox 100% on R/A; Weight 71.21 kg; ld1 Height 5 ft. 2 in. (157.48 cm); Pain 0/10; 20:47 Body Mass Index 28.72 (71.21 kg, 157.48 cm) ld1 MDM: 20:51 Patient medically screened. kb 21:35 Data reviewed: vital signs, nurses notes. Data interpreted: Pulse oximetry: on room air kb is 100 %. Interpretation: normal. Counseling: I had a detailed discussion with the patient and/or guardian regarding: the historical points, exam findings, and any diagnostic results supporting the discharge/admit diagnosis, the need for outpatient follow up, a family practitioner, to return to the emergency department if symptoms worsen or persist or if there are any questions or concerns that arise at home. Administered Medications: No medications were administered Disposition: 22:41 Co-signature as Attending Physician, Manuel Ward MD. rn 22:41 I agree with the assessment and plan of care. Attestation: The patient's history, exam rn findings, diagnostics, and a summary of any interventions or procedures was reviewed in detail with Beatrice HERNANDEZ. Disposition Summary: 09/22/21 20:51 Discharge Ordered Location: Home kb Condition: Stable kb Diagnosis - Anxiety disorder, unspecified kb Followup: kb - With: Emergency Department - When: As needed - Reason: Worsening of condition Followup: kb - With: Private Physician - When: 2 - 3 days - Reason: Recheck today's complaints, Continuance of care, Re-evaluation by your physician Discharge Instructions: - Discharge Summary Sheet kb - Panic Attack, [id number] kb - Managing Anxiety, Adult kb Forms: - Medication Reconciliation Form kb - Thank You Letter kb - Antibiotic Education kb - Prescription Opioid Use kb Signatures: Beatrice Ledezma FNP-C FNP-Manuel Linder MD MD rn Dibbern, Lauren, RN RN ld1 Corrections: (The following items were deleted from the chart) 21:35 21:35 Constitutional: This is a well developed, well nourished patient who is awake, kb alert, and in no acute distress. Head/Face: Normocephalic, atraumatic. ENT: Moist Mucous membranes Respiratory: Respirations even and unlabored. No increased work of breathing, no retractions or nasal flaring. Skin: Warm, dry with normal turgor. Normal color. MS/ Extremity: Pulses equal, no cyanosis. Neurovascular intact. Full, normal range of motion. Neuro: Awake and alert, GCS 15, oriented to person, place, time, and situation. Moves all extremities. Normal gait. Psych: Awake, alert, with orientation to person, place and time. Behavior, mood, and affect are within normal limits. kb
[2021-09-22 21:29] VITALS: BP 116/84; TEMP 97.6; O2SAT 100
== END 2021-09-22 21:01 | disposition home or self-care (01) ==
LOC: ER 20:28
DX: F41.9 Anxiety disorder, unspecified (principal); Z88.8 Allergy status to other drugs, medicaments and biological substances
CPT/HCPCS: 99283

== ENCOUNTER 2021-09-23 20:49 | Emergency (ER) | payer OTHER ==
--- OUTSIDE RECORDS SUMMARY | 2021-09-23 20:55 | XMS REPORT | Continuity of Care Document ---
:1970 Author Organization [facility] t Address [address] [place] [address] Care Team Providers Name Role Phone UNKNOWN Primary Care Physician Unavailable Humaira-Saraiayo_A_AH Attending Clinician Unavailable Sanchez SNOW Attending Clinician SANCHEZ Attending Clinician Unavailable Jovani Del Rosario Attending Clinician Doctor Unassigned, Name Attending Clinician Unavailable Singer ESCALANTE Attending Clinician Attending Clinician Unavailable Chente Attending Clinician Unavailable Chente Attending Clinician Unavailable ALEXYSUWKYRA Attending Clinician Unavailable Humaira-Mbayo_A_AH Admitting Clinician Unavailable SANCHEZ Admitting Clinician Unavailable Chente Admitting Clinician Unavailable LOS Admitting Clinician Unavailable Payers Payer Name Policy Type Policy Number Effective Date Expiration Date S [facility] OF [place] - [id number] 2020 [place] 00:00:00 (MEDICARE REPLACEMENT/ADVANT AGE - HMO) Problems Condition Condition Condition Status Onset Resolution Last Treating Co mments Source Name Details Category Date Date Treatment Clinician Date LOW PB Diagnosis Active 2019-01-22 Mem oria 01-21 01:52:00 l LOW PB 00:00: Yon[place] 00 Active 01/21/2019 [place] INFECTIOUS Diagnosis Active 2019-02-06 Memoria GASTROENTE 01-21 08:58:00 l RITIS AND 00:00: [place] COLITIS INFECTIOUS 00 GASTROENTE RITIS AND COLITIS Active 01/21/2019 [facility] Irregular Irregular Disease Active Uni vers menstrual menstrual 8-15 ity of cycle cycle 00:00: [address] Skin Skin Disease Active Univers lesion lesion 8-15 ity of 00:00: [address] Psychiatri Psychiatri Disease Active U nivers c disorder c disorder 8-15 it y of 00:00: [address] Well woman Well woman Disease Active U nivers exam with exam with 8-15 ity of routine routine 00:00: [place] gynecologi gynecologi 00 Me dical nicky exam nicky exam Branch INFECTIOUS Diagnosis Active 2019-02-06 Memoria GASTROENTE 08:58:00 l RITIS AND Yonis COLITIS, INFECTIOUS GASTROENTE RITIS AND COLITIS, Active [facility] Allergies, Adverse Reactions, Alerts Allergy Allergy Status Severity Reaction(s) Onset Inactive Treating Comm ents Source Name Type Date Date Clinician NO KNOWN Drug Active Univers ALLERGIE Class ity of S [facility] Phenerga Phenerga Active [place] Social History Social Habit Start Date Stop Date Quantity Comments Source History of Cigarette Smoker Universi ty of tobacco use [facility] Tobacco Comment 2-3 cigs a day [facility] Exposure to Not sure [place] of SARS-CoV-2 [facility] (event) [place] Tobacco use and 2016-06-08 2016-06-08 [facility] 00:00:00 [facility] Alcohol intake 2016-06-08 2016-06-08 0 /d University of 00:00:00 00:00:00 [facility] Sex Assigned At [birth year] Universit y of 00:00:00 00:00:00 [facility] Smoking Status Start Date Stop Date Source Social History 2019-01-22 05:00:12 [facility] urena Current some day smoker 2016-06-08 [facility] Medications Ordered Filled Start Stop Current Ordering Indication Dosage Frequency Signature Comments Components Source Medication Medication Date Date Medication? Clinician (SIG) Name Name cefTRIAXone 2020-10- No 1000mg 1,000 mg, Univers (ROCEPHIN) 17 11-17 IV ity of 1,000 mg in 08:30: 08:01 [place], [place] NaCl 0.9% 00 :00 ONCE, 1 [...] 09/09/21 at 2330, RANDA amoxicillin 2020-10 Yes [id number] 500mg Take 1 Univers 500 mg 11-10 capsule by ity of capsule 00:00: mouth 3 [place] 00 (three) Medical times Branch daily. ondansetron 2019-10- No 4mg 4 mg, [facility] ers (ZOFRAN-ODT 12-01 Oral, ity of ) 15:15: 14:16 ONCE, 1 [place] disintegrat 00 :00 dose, Mon Med ical ing tablet 09/30/20 at [facility] 4 mg 0915, Routine ondansetron 2019-10- No 4mg 4 mg, [facility] ers (ZOFRAN-ODT 12-01- Oral, ity of ) 14:30: 13:32 ONCE, 1 [place] disintegrat 00 :00 dose, Mon Med ical ing tablet 09/30/20 at [facility] 4 mg 0830, Routine ondansetron 2019-10 Yes [id number] 4mg Take 1 Univers 4 mg 2-07 tablet by ity of disintegrat 00:00: mouth [place] ing tablet 00 every 8 Medica l (eight) Branch hours as needed for Nausea and Vomiting (N/V). ondansetron 2019-10 Yes [id number] 4mg Take 1 Univers 4 mg 2-07 tablet by ity of disintegrat 00:00: mouth [place] ing tablet 00 every 8 Medica l (eight) Branch hours as needed for Nausea and Vomiting (N/V). ondansetron 2019-10 Yes [id number] 4mg Take 1 Univers 4 mg 2-07 tablet by ity of disintegrat 00:00: mouth [place] ing tablet 00 every 8 Medica l (eight) Branch hours as needed for Nausea and Vomiting (N/V). ondansetron 2019-10 Yes [id number] 4mg Take 1 Univers 4 mg 2-07 tablet by ity of disintegrat 00:00: mouth [place] ing tablet 00 every 8 Medica l (eight) Branch hours as needed for Nausea and Vomiting (N/V). ciprofloxac 2019 Yes 500 mg = 1 Memoria in 500 mg 4-04 tab, PO, l oral tablet 17:35: [id number], X Yonis 00 4 day, # 8 [...] 4-04 tab, PO, l oral tablet 17:35: [id number], X [place] 00 4 day, # 8 tab, 0 [...] s with feeding tube less than 14 Somali (Dobhoff, J-tube etc) and pediatric and patients. Potassium No Notes: Memori a Chloride 4-03 (Same as: l 13:26: K-Dur 20) [place] "Do Not Crush" Give with food and full glass of water For patients unable to swallow tablet, dissolve in one half glass of water. Allow about 2 minutes for the tablets to disintegra te. Stir before giving to prepare slurry and administer . Please exclude Patient s with feeding tube less than 14 [place] (Dobhoff, J-tube etc) and pediatric and patients. Strattera No 0.5 mg/kg, Me moria 01-24 Route: PO, l 14:00: QAM, Yonis Dosing Weight 75, kg, Start date: 01/24/19 9:00:00 CDT, Duration: 30 day, Stop date: 02/22/19 9:00:00 CDT Strattera 0 No 0.5 mg/kg, Me moria 402 Route: PO, l 14:00: QAM, [place] 00 Dosing Weight 75, kg, Start date: [...] Memoria 4- (Same as: l 15:00: Flagyl) [place] 00 Take with food/ avoid alcohol Cipro No Notes: February Memori a 4- interfere l 15:00: w/enteral [place] 00 feedings - Take 1 hr before [...] PO, ONCE, l mEq oral 14:20: 0 [place] tablet, 00 Refill(s) extended release Metronidazo No 500 mg, Mem oria le 500 MG 4-01 PO, l Oral Tablet 14:20: [id number], 0 [place] [Flagyl] 00 Refill(s) Ciprofloxac No 500 mg, Mem oria in 500 MG 01 PO, l Oral Tablet 14:20: [id number], 0 [place] [Cipro] 00 Refill(s) potassium Yes 40 mEq, Memor ia chloride 20 -01 PO, ONCE, l mEq oral 14:20: 0 [place] tablet, 00 Refill(s) extended release Metronidazo No 500 mg, Mem oria le 500 MG 4-01 PO, l Oral Tablet 14:20: [id number], 0 H [place] [Flagyl] 00 Refill(s) Ciprofloxac No 500 mg, Mem oria in 500 MG 4-01 PO, l Oral Tablet 14:20: [id number], 0 Yon[place] [Cipro] 00 Refill(s) Potassium No [...] s with feeding tube less than 14 Somali (Dobhoff, J-tube etc) and pediatric and patients. [...] s with feeding tube less than 14 [place] (Dobhoff, J-tube etc) and pediatric and patients. [...] tab, PO, l Tablet 21:08: BID, 0 [place] [Risperdal] 00 Refill(s) Strattera Yes 0.5 mg/kg, [...] tab, PO, l Tablet 21:08: BID, 0 [place] [Risperdal] 00 Refill(s) Zosyn No Notes: Memoria [...] oria 3-31 to exceed l 15:03: 400mg/day. [place] 00 (Same As: Ultram) Tramadol No Notes: [...] 01-22 Route: IM, l 09:47: Drug form: [place] 00 PDR/INJ, PRN, Dosing Weight 75.994, kg, [...] 01-22 Route: IM, l 09:47: Drug form: [place] PDR/INJ, PRN, Dosing Weight 75.994, kg, PRN Blood Glucose Results, Start date: 01/22/19 4:47:00 CDT, Duration: 30 day, Stop date: 02/21/19 4:46:00 CDT Dextrose 2018- No 12.5 gm, Memor ia 50% Syringe 3-31 25 mL, l 09:47: Route: [place] 00 IVP, Drug Form: INJ, Dosing Weight [...] moria IV 3-31 1,000 l 08:52: ml/hr, [place] 00 Infuse Over: 1 hr, Route: IV, [...] 0.9% 3-31 Same as: l 04:52: BD [place] Posiflush Sterile NS (Bolus) No 1,000 mL, Me moria IV 3-31 1,000 l 04:51: ml/hr, [place] 00 Infuse Over: 1 hr, Route: IV, 1,000, Drug form: INJ, ONCE, Priority: STAT, Dosing Weight 75.994 kg, Start date: 01/21/19 23:51:00 CDT, Stop date: 01/21/19 23:51:00 CDT NS (Bolus) No 1,000 mL, Me moria IV 01-22 1,000 l 04:51: ml/hr, [place] 00 Infuse Over: 1 hr, Route: IV, [...] HYDROBROMID 8-15 mouth. ity of E 19:02: [place] (CITALOPRAM 27 Medical ORAL) Branch ibuprofen 2016-0 Yes 200mg Take 200 Uni vers (ADVIL) 200 8-15 mg by ity of mg tablet 14:02: mouth [place] [id number] every 6 Medical (six) Branch hours as needed. CLONAZEPAM 2016-0 Yes Take by Uni vers (KLONOPIN 8-15 mouth. ity of ORAL) 14:02: [address] Branch CITALOPRAM 2016-0 Yes Take by Uni vers HYDROBROMID 8-15 mouth. ity of E 14:02: [place] (CITALOPRAM 27 Medical ORAL) Branch ibuprofen 2016-0 Yes 200mg Take 200 Uni vers (ADVIL) 200 8-15 mg by ity of mg tablet 14:02: mouth [place] [address] every 6 Medical (six) Branch hours as needed. CLONAZEPAM 2016-0 Yes Take by Uni vers (KLONOPIN 8-15 mouth. ity of ORAL) 14:02: [address] Branch CITALOPRAM 2016-0 Yes Take by Uni vers HYDROBROMID 8-15 mouth. ity of E 14:02: [place] (CITALOPRAM 27 Medical ORAL) Branch ibuprofen 2016-0 Yes 200mg Take 200 Uni vers (ADVIL) 200 8-15 mg by ity of mg tablet 14:02: mouth [place] [address] every 6 Medical (six) Branch hours as needed. CLONAZEPAM 2016-0 Yes Take by Uni vers (KLONOPIN 8-15 mouth. ity of ORAL) 14:02: [place] [address] Medical Branch CITALOPRAM 2016-0 Yes Take by Uni vers HYDROBROMID 8-15 mouth. ity of E 14:02: [place] (CITALOPRAM 27 Medical ORAL) Branch misoprostol 2016-0 [...] H it y of en-caff 00:00: PRN. [place] (ESGIC) 00 Medical 50-325-40 Branch mg tablet butalbital- 2015-0 Yes TK 1 TO 2 U nivers acetaminoph 8-01 T PO Q 8 H it y of en-caff 00:00: PRN. [place] (ESGIC) 00 Medical 50-325-40 Branch mg tablet butalbital- 2015-0 Yes TK 1 TO 2 U nivers acetaminoph 8-01 T PO Q 8 H it y of en-caff 00:00: PRN. [place] (ESGIC) 00 Medical 50-325-40 Branch mg tablet butalbital- 2016-0 Yes TK 1 TO 2 U nivers acetaminoph 8-01 T PO Q 8 H it y of en-caff 00:00: PRN. [place] (ESGIC) 00 Medical 50-325-40 Branch mg tablet dextroamphe 0 Yes TK 1 T PO U nivers tamine-amph 7-20 BID. ity of etamine 00:00: [place] (ADDERALL) 00 Medical 20 mg Branch tablet dextroamphe Yes TK 1 T PO U nivers tamine-amph 7-20 BID. ity of etamine 00:00: [place] (ADDERALL) 00 Medical 20 mg Branch tablet dextroamphe Yes TK 1 T PO U nivers tamine-amph 7-20 BID. ity of etamine 00:00: [place] (ADDERALL) 00 Medical 20 mg Branch tablet [...] 2021-09-10 08:01:00 138 mm[Hg] Univer [facility]ity [facility] Diastolic blood 2021-09-10 08:01:00 97 mm[Hg] Unive rsity [facility] Heart rate 2021-09-10 08:01:00 87 /min [facility] Respiratory rate 2021-09-10 08:01:00 20 /min [facility] O[facility] saturation in 2021-09-10 08:01:00 98 /min University of Arterial blood by [place] [employer] [facility] Pulse oximetry Branch Body temperature 2021-09-10 04:28:51 37.17 Ruthann [facility] Body height 2021-09-10 04:26:00 154.9 cm [facility] Body weight 2021-09-10 04:26:00 81.647 kg [facility] BMI 2021-09-10 04:26:00 34.01 kg/m2 [facility] Systolic blood 2021-09-09 20:06:00 150 mm[Hg] Univer [facility]ity [facility] Diastolic blood 2021-09-09 20:06:00 89 mm[Hg] Unive rsity [facility] Heart rate 2021-09-09 20:06:00 108 /min [facility] Body temperature 2021-09-09 20:06:00 37.22 Ruthann [facility] Respiratory rate 2021-09-09 20:06:00 18 /min [facility] Oxygen saturation in 2021-09-09 20:06:00 99 /min University of Arterial blood by [place] nicky Pulse oximetry Branch Body weight 2021-09-09 20:05:00 81.647 kg Universi ty [facility] [place] [facility] BMI 2021-09-09 20:05:00 32.40 kg/m2 [facility]i ty [facility] [place] [facility] Systolic blood 2020-09-30 14:00:00 126 mm[Hg] Univer sity of pressure [place] [facility] Diastolic blood 2020-09-30 14:00:00 84 mm[Hg] Unive rsity of pressure [place] [facility] Heart rate 2020-09-30 14:00:00 79 /min Universi ty of [place] [facility] Oxygen saturation in 2020-09-30 14:00:00 98 /min University of Arterial blood by [facility] nicky Pulse oximetry Branch Body temperature 2020-09-30 13:26:00 37.22 Ruthann Univ ersity of [place] [facility] Respiratory rate 2020-09-30 13:26:00 16 /min Univ ers[facility] [place] [facility] Body weight 2020-09-30 13:26:00 72.576 kg [facility]i ty [facility] [place] [facility] BMI 2020-09-30 13:26:00 28.80 kg/m2 [facility]i [facility] [place] [facility] Systolic blood 2020-09-30 14:00:00 126 mm[Hg] Univer sity of pressure [place] [facility] Diastolic blood 2020-09-30 14:00:00 84 mm[Hg] Unive rsity of pressure [place] [facility] Heart rate 2020-09-30 14:00:00 79 /min Universi ty [facility] [place] [facility] Oxygen saturation in 2020-09-30 14:00:00 98 /min University of Arterial blood by [facility] nicky Pulse oximetry Branch Body temperature 2020-09-30 13:26:00 37.22 Ruthann Univ ersity [facility] [place] [facility] Respiratory rate 2020-09-30 13:26:00 16 /min Univ ers[facility] [place] [facility] Body weight 2020-09-30 13:26:00 72.576 kg [facility]i [facility] [place] [facility] BMI 2020-09-30 13:26:00 28.80 kg/m2 [facility] [place] [facility] Temperature Oral (F) 2019-01-28 01:16:00 98.6 F [facility] [place] Systolic (mm Hg) 2019-01-28 01:16:00 Estrada rial [place] Diastolic (mm Hg) 2019-01-28 01:16:00 Mem orial [place] Heart Rate 2019-01-28 01:16:00 [facility] [place] Respitory Rate 2019-01-28 01:16:00 Memori al [place] Systolic (mm Hg) 2019-01-27 20:42:00 Estrada rial [place] Diastolic (mm Hg) 2019-01-27 20:42:00 Mem orial [place] Heart Rate 2019-01-27 20:42:00 [facility] [place] Respitory Rate 2019-01-27 20:42:00 Memori al [place] Temperature Oral (F) 2019-01-27 20:42:00 98.5 F [facility] [place] Systolic (mm Hg) 2019-01-27 17:00:00 Estrada rial [place] Diastolic (mm Hg) 2019-01-27 17:00:00 Mem orial [place] Temperature Oral (F) 2019-01-27 17:00:00 98.5 F [facility] [place] Heart Rate 2019-01-27 17:00:00 [facility] [place] Respitory Rate 2019-01-27 17:00:00 [facility] [place] Height 2019-01-22 14:35:00 157.48 cm [facility] BMI Calculated 2019-01-22 14:35:00 [facility] [place] Weight 2019-01-22 14:35:00 [facility] [place] Weight 2019-01-22 04:34:00 [facility] Procedure Date / Time Performing Clinician Source Performed URINALYSIS 2021-09-10 06:03:00 Neena Bradford [facility] URINE DRUG (IMMUNOASSAY) 2021-09-10 06:03:00 Neena Bradford [facility] SCREEN W/O REFLEX XR CHEST 1 VW 2021-09-10 04:57:30 Neena Bradford [facility] CREATINE KINASE 2021-09-10 04:39:00 Neena Bradford [facility] MAGNESIUM 2021-09-10 04:39:00 Neena Bradford [facility] TROPONIN I 2021-09-10 04:39:00 Neena Bradford [facility] COMP. METABOLIC PANEL 2021-09-10 04:39:00 Neena Bradford [facility] ([id number]) Medical [place] CBC WITH DIFF 2021-09-10 04:39:00 Neena Bradford [facility] PROTHROMBIN TIME / INR 2021-09-10 04:39:00 Neena Bradford [facility] ACTIVATED PARTIAL 2021-09-10 04:39:00 Neena Bradford [facility] N-TERMINAL PRO-BNP 2021-09-10 04:39:00 Neena Bradford [facility] COVID-19 (ID NOW RAPID 2021-09-10 04:39:00 Neena Bradford [facility] TESTING) Medical Branch TROPONIN I 2021-09-09 21:49:00 [facility] COMP. METABOLIC PANEL 2021-09-09 21:49:00 [facility] Luanne [facility] ([id number]) Medical Branch LITHIUM 2021-09-09 21:49:00 [facility] CBC WITH DIFF 2021-09-09 21:49:00 [facility] CONSENT/REFUSAL FOR 2021-09-09 19:51:22 Doctor Unassigned, No Un [facility] DIAGNOSIS AND TREATMENT Name Medical Branch URINALYSIS 2020-09-30 13:27:00 [place] [facility] [place] ADC,CLC OR LCC ONLY - 2020-09-30 13:27:00 [place] [facility] INFLUENZA A & B DIRECT Medical B ranch ANTIGEN COVID-19 (ID NOW RAPID 2020-09-30 13:27:00 [place] [facility] TESTING) Medical Branch Encounters Start End Encounter Admission Attending Care Care Encounter Source Date/Time Date/Time Type Type Clinicians Facility Department ID 2021-09-07 Outpatient Humaira-Mbayo VFP VFP [id number] [place] 13:23:42 _A_AH [id number] Family Practic e 2021-09-06 Outpatient Humaira-Mbayo VFP VFP [id number] - [place] 04:23:58 _A_AH 47266 Family Practic e 2019-01-22 Inpatient E [facility] MED [id number] [facility] W 04:39:00 2021-09-09 2021-09-10 Emergency Sanchez [facility] [id number] Univers 22:20:00 03:02:00 Neena WALSH 350.1.13.10 i ty of [place] 4.2.7.2.686 [facility] [id number] [address] 2021-09-09 2021-09-10 [facility] [id number] Univers 22:20:00 03:02:00 NEENA cherrie [facility] 2021-09-09 2021-09-10 [facility] [id number] Univers 22:20:00 03:02:00 NEENA tubbs [facility] 2021-09-09 2021-09-09 [facility] [id number] Univers 14:07:00 17:35:00 Luanne WALSH 350.1.13.10 i ty of [place] 4.2.7.2.686 [facility] [id number] [address] 2021-09-09 2021-09-09 Orders Doctor BELKYS [id number] Univers 00:00:00 00:00:00 Only Unassigned, LANA 350.1.13.10 ity of [place] [facility] 4.2.7.2.686 Joe [id number] [address] 2020-09-30 2020-09-30 [facility] [id number] Univers 07:22:00 08:18:00 Chuy Walsh 350.1.13.10 i ty of [place] 4.2.7.2.686 [facility] [id number] [address] 2020-09-30 2020-09-30 [facility] [id number] 07:22:00 08:18:00 Chuy Walsh 350.1.13.10 [place] 4.2.7.2.686 [place] [id number] [facility] 2020-09-30 2020-09-30 Emergency [facility] [id number] Univers 07:22:00 07:22:00 CHUY juan manuelcherrie [facility] 2020-04-05 2020-04-05 Outpatient HumairaQuinn DAVISP SUSANP [id number] [facility] 05:44:00 05:44:00 _A_AH 34292 Family Practic e 2020-04-05 2020-04-05 Outpatient Bernadine DAVISP SUSANP [id number] 05:44:00 05:44:00 _A_AH 28838 Family Practic e 2020-03-04 2020-03-14 Inpatient 3 Ronni Eldridge [facility] PSY [id number] 15:38:00 15:25:00 [facility] 2019-12-13 2019-12-13 Outpatient Bernadine DAVIS [address] [place] [address] 07:22:00 07:22:00 _A_AH 63693 Family Practic e 2019-01-22 2019-01-28 Inpatient [facility] [id number] Memoria 04:33:00 04:40:00 r Yonis 00 l [facility] 2018-02-21 2018-02-20 [facility] [id number] [address] 14:48:00 13:18:00 [facility] Results Test Description Test Time Test Comments Results Result Comments Source TROPONIN I 2021-09-10 05:26:53 Test Item Value Reference Range Interpretation Comme nts TROPONIN I (test code = 0.003 ng/mL See_Comment [Au tomated message] The [id number]) system which ge nerated this result tra [...] biotin. Lab Interpretation Normal (test code = 10079-7) [facility] [id number] 05:24:16 Test Item Value Reference Range Interpretation Comments NT-proBNP (test code 35 pg/mL See_Comment [Autom ated = 4691191586) message] The system which generated this result transmitted reference range : <=125. The reference range was not used to interpret this result as normal/abnormal . PERRY (test code = PERRY) Biotin has been reported to cause a negative bias, interpret results relative to patient's use of biotin. Lab Interpretation Normal (test code = 17870-5) [facility]2021-[facility]-17 05:16:51 Test Item Value Reference Range Interpretation Comments MAGNESIUM (test code = 7561521123) 1.8 mg/dL 1.7-2.4 Lab Interpretation (test code = Normal 59278-4) [facility]. METABOLIC PANEL (11139)2021-09-10 05:16:31 Test Item Value Reference Range Interpretation Comments NA (test code = 139 mmol/L 135-145 1546043945) K (test code = 4.0 mmol/L 3.5-5.0 8728422890) CL (test code = 108 mmol/L 98-108 7575529235) CO2 TOTAL (test code 25 mmol/L 23-31 = 1228009288) AGAP (test code = 2-16 6100027619) BUN (test code = 14 mg/dL 7-23 0379387482) GLUCOSE (test code = 88 mg/dL 70-110 4365946326) CREATININE (test code 0.89 mg/dL 0.50-1.04 = 7241459864) TOTAL BILI (test code 0.5 mg/dL 0.1-1.1 = 3985140059) CALCIUM (test code = 10.3 mg/dL 8.6-10.6 4757690704) T PROTEIN (test code 6.9 g/dL 6.3-8.2 = 7834661863) ALBUMIN (test code = 4.3 g/dL 3.5-5.0 2548589426) ALK PHOS (test code = 72 U/L 34-122 4258578863) ALTv (test code = 17 U/L 5-35 1742-6) AST(SGOT) (test code 29 U/L 13-40 = 1871671933) eGFR (test code = mL/min/1.73m2 9492174139) PERRY (test code = PERRY) Association of [...] or urine or abnormalities in imaging tests). [facility] [id number] 05:16:16 Test Item Value Reference Range Interpretation Comments CK (test code = 6162937092) 267 U/L 33-194 H Lab Interpretation (test code = Abnormal 99596-5) [facility] THRMPLAS [id number] 05:05:32 Test Item Value Reference Range Interpretation Comments APTT Patient (test See_Comment [Automat ed code = 3173-2) message] The system which generated this result transmitted reference range : 23 - 38 Seconds . The reference range was not used to interpr et this result as normal/abnormal . PERRY (test code = PERRY) The [facility] patient population mean normal value for aPTT is 30 seconds. Lab Interpretation Normal (test code = 14306-0) [facility] / [id number] 05:03:30 Test Item Value Reference Range Interpretation [...] tions. Lab Interpretation (test Normal code = 31101-0) [facility] WITH [id number] 04:57:13 Test Item Value Reference Range Interpretation Comments WBC (test code = See_Comment [Automated 6990-2) message] The sy stem which generated this result transmitted reference range : 4.30 - 11.10 10*3/?L. The reference range was not used to interpret this result as normal/abnormal . RBC (test code = See_Comment [Automated 329-8) message] The sy stem which generated this [...] RDW-SD (test code = 41.2 fL 39.0-49.9 95646-8) RDW-CV (test code = 13.0 % 12.0-15.5 788-0) PLT (test code = See_Comment H [Automated 147-3) message] The sy stem which generated this result transmitted reference range : 166 - 358 10*3/ ?L. The reference r katie was not used to interpret this result as normal/abnormal . MPV (test code = 9.6 fL 9.5-12.9 54465-6) NRBC/100 WBC (test See_Comment [Automat ed code = 6355858974) message] The system which generated this result transmitted reference range : 0.0 - 10.0 /100 WBCs. The refer ence range was not u sed to interpret th is result as normal/abnormal . NRBC x10^3 (test code <0.01 See_Comment [Auto mated = 1400517203) message] The s ystem which generated this result transmitted reference range : 10*3/?L. The reference range was not used to interpret this result as normal/abnormal . GRAN MAT (NEUT) % 61.9 % (test code = 770-8) IMM GRAN % (test code 0.30 % = 2283181533) LYMPH % (test code = 26.0 % 736-9) MONO % (test code = 9.5 % 5905-5) EOS % (test code = 1.6 % 713-8) BASO % (test code = 0.7 % 706-2) GRAN MAT x10^3(ANC) 5.91 10*3/uL 1.88-7.09 (test code = 8890858919) IMM GRAN x10^3 (test 0.03 10*3/uL 0.00-0.06 code = 8849500470) LYMPH x10^3 (test code 2.48 10*3/uL 1.32-3.29 = 731-0) MONO x10^3 (test code 0.91 10*3/uL 0.33-0.92 = 742-7) EOS x10^3 (test code = 0.15 10*3/uL 0.03-0.39 711-2) BASO x10^3 (test code 0.07 10*3/uL 0.01-0.07 = 704-7) Lab Interpretation Abnormal (test code = 74287-0) [facility] [id number] 22:24:55 Test Item Value Reference Interpretation Comments Range TROPONIN I (test 0.002 ng/mL See_Comment [Automated code = 7958624618) message] The system which generated this result [...] biotin. Lab Interpretation Normal (test code = 20655-0) [facility]2021-[facility]-16 22:24:34 Test Item Value Reference Range Interpretation Comments Pecan Gap (test code = <0.2 0.6-1.2 L 4943844523) PERRY (test code = PERRY) Toxic Range: ? Greater than 1.2 mmol/L Lab Interpretation (test Abnormal code = 88281-4) [facility] METABOLIC PANEL (92835)2021-09-09 22:13:54 Test Item Value Reference Range Interpretation Comments NA (test code = 139 mmol/L 135-145 5152799835) K (test code = 4.0 mmol/L 3.5-5.0 9242369934) CL (test code = 105 mmol/L 98-108 2432064584) CO2 TOTAL (test code 26 mmol/L 23-31 = 8334731930) AGAP (test code = 2-16 4470728604) BUN (test code = 11 mg/dL 7-23 6916026754) GLUCOSE (test code = 109 mg/dL 70-110 0258357077) CREATININE (test code 0.71 mg/dL 0.50-1.04 = 7295932162) TOTAL BILI (test code 0.6 mg/dL 0.1-1.1 = 8421430487) CALCIUM (test code = 10.4 mg/dL 8.6-10.6 9672934914) T PROTEIN (test code 7.6 g/dL 6.3-8.2 = 2810504911) ALBUMIN (test code = 4.7 g/dL 3.5-5.0 9950578329) ALK PHOS (test code = 78 U/L 34-122 8792040587) ALTv (test code = 19 U/L 5-35 1742-6) AST(SGOT) (test code 28 U/L 13-40 = 3674979291) eGFR (test code = mL/min/1.73m2 8519248555) PERRY (test code = PERRY) Association of [...] or urine or abnormalities in imaging tests). [facility] WITH [id number] 22:03:32 Test Item Value Reference Range Interpretation Comments WBC (test code = See_Comment [Automated 7490-2) message] The sy stem which generated this [...] RDW-SD (test code = 40.2 fL 39.0-49.9 01585-1) RDW-CV (test code = 12.9 % 12.0-15.5 788-0) PLT (test code = See_Comment H [Automated 777-3) message] The sy stem which generated this result transmitted reference range : 166 - 358 10*3/ ?L. The reference r katie was not used to interpret this result as normal/abnormal . MPV (test code = 9.4 fL 9.5-12.9 L 33017-9) NRBC/100 WBC (test See_Comment [Automat ed code = 0265145077) message] The system which generated this result transmitted reference range : 0.0 - 10.0 /100 WBCs. The refer ence range was not u sed to interpret th is result as normal/abnormal . NRBC x10^3 (test code <0.01 See_Comment [Auto mated = 9430833477) message] The s ystem which generated this result transmitted reference range : 10*3/?L. The reference range was not used to interpret this result as normal/abnormal . GRAN MAT (NEUT) % 67.1 % (test code = 770-8) IMM GRAN % (test code 1.00 % = 4960579177) LYMPH % (test code = 21.4 % 736-9) MONO % (test code = 7.9 % 5905-5) EOS % (test code = 1.8 % 713-8) BASO % (test code = 0.8 % 706-2) GRAN MAT x10^3(ANC) 7.35 10*3/uL 1.88-7.09 H (test code = 4633287612) IMM GRAN x10^3 (test 0.11 10*3/uL 0.00-0.06 H code = 7467354439) LYMPH x10^3 (test code 2.34 10*3/uL 1.32-3.29 = 731-0) MONO x10^3 (test code 0.86 10*3/uL 0.33-0.92 = 742-7) EOS x10^3 (test code = 0.20 10*3/uL 0.03-0.39 711-2) BASO x10^3 (test code 0.09 10*3/uL 0.01-0.07 H = 704-7) Lab Interpretation Abnormal (test code = 72570-7) [facility] ONLY - INFLUENZA A & B DIRECT [id number] 14:04:00 Test Item Value Reference Range Interpretation Comments Influenza A (test code = 46655-8) Negative Negative Influenza B (test code = 06322-5) Negative Negative Lab Interpretation (test code = Normal 76965-8) [facility]OVID[facility] (ID NOW RAPID TESTING)2020-09-30 14:03:00 Test Item Value Reference Range Interpretation Comments SARS-CoV-2 Rapid ID NOW Not Detected Not Detected (test code = 17738-8) PERRY (test code = PERRY) ID NOW COVID-19 Assay is an isothermal nucleic acid amplification test intended for the qualitative detection of nucleic acid from SARS-CoV-2 viral RNA in nasopharyngeal (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 It is used under Emergency Use [...] indicated. Lab Interpretation Normal (test code = 03898-4) [facility]2020-[facility]-07 13:55:00 Test Item Value Reference Range Interpretation Comments APPEARANCE (test code = Hazy Clear A 9296013873) COLOR (test code = Yellow Yellow 7543820844) PH (test code = 4.8-8.0 0427520605) SP GRAVITY (test code = 1.003-1.030 8869977931) GLU U QUAL (test code = Normal Normal 8988627263) BLOOD (test code = Negative Negative 9279396353) KETONES (test code = 5 mg/dL Negative A 4881472584) PROTEIN (test code = Negative Negative 2887-8) UROBILIN (test code = 2.0 mg/dL Normal A 3383113242) BILIRUBIN (test code = Negative Negative 8999387110) NITRITE (test code = Negative Negative 7796349822) LEUK ROZINA (test code = 25/uL Negative A 0774051768) RBC/HPF (test code = See_Comment [Autom ated message] 8191261769) The system [employer] generated this result transmit ngozi reference range : 0 - 3 HPF. The refe rence range was not u sed to interpret th is result as normal/abnormal . WBC/HPF (test code = See_Comment [Autom ated message] 7167796667) The system [employer] generated this result transmit ngozi reference range : 0 - 5 HPF. The refe rence range was not u sed to interpret th is result as normal/abnormal . BACTERIA (test code = Few Negative A 5592480233) MUCOUS (test code = Slight Negative LPF A 7329493827) SQ EPITH (test code = HPF 4477671053) Lab Interpretation (test Abnormal code = 07425-4) [facility]enRPR Ryuffuigxyk0445-15-56 16:42:24 Test Item Value Reference Range Interpretation [...] = 10-24-2020 N Expiration Dt) Thyroid Stimulating Osbizay9590-71-20 08:35:16 Test Item Value Reference Range Interpretation Comments TSH (test code = TSH) 1.170 mIU/mL 0.270-4.200 Lipid Yoijj9027-40-90 08:21:19 Test Item Value Reference Range Interpretation Comments Cholesterol Total 254 mg/dL 0-200 H RISK OF HE ART (test code = DISEASEPublishe d by Cholesterol Total) [employer] Cathie lyte Optimal Borderl ine [...] calculation is LDL/HDL Ratio=L DL Calc/HDL Chol QKLZZQQYRHKP4527-20-21 08:24:008.6[facility] RhobsbkJAHRJTZKQWIM6632-59-53 08:24:73828Efjxztrn ZtmjmumEJESRQRIAHJH0610-81-67 08:24:0027[facility] DNODVHYWJTCE2440-92-66 08:24:73455Sdswvicq LcqzcqnWSMAXCQIQGMB3706-56-21 08:24:003.6[facility] TwdkoddBYMTGTEJMNEA9977-60-69 08:24:000.70[facility] HFMSSFKCFRFB7601-68-30 08:24:008.4[facility] HixlzbvAJHCEXMTKYQW9937-56-02 08:24:76942Hgnfhwrm MevgfqmVZTDYNPJEJWH0632-59-02 08:24:0086[facility] BDFTLZXHAHIJ7816-62-81 08:24:006[facility] SxfsajiMUTOVLGRRY5942-68-26 08:24:00 11.6[facility] IjdxzgpOBBGWTCSGX4350-78-43 08:24:003.78[facility]annHEMATOLOGY 2019-01-26 08:24:0013.3[facility] JatswjlGMMQDMPLKQ1269-18-50 08:24:0034.0[facility] XulriwdKWVFSDEMBH0282-73-98 08:24:006.3[facility] RonutigTBKHVRDHFA4411-02-35 08:24:00 Test Item Value Reference Range Interpretation Comments MCH (test code = MCH) 30.7 pg 27.0-31.0 [facility] JzhawpfLOBJOVHFWE0109-93-41 08:24:0090.3[facility] HermannHEMATOLOGY 2019-01-26 08:24:0034.2[facility] DkufeynJYZLIXALFY4164-18-33 08:24:81666Johefxni IgwglazWSRBKKHSEJ8900-11-07 08:24:007.5[facility] IphdobcHRTMJTEVSKCK4472-87-58 08:24:008.6[facility] RxfcrncXYEPBBNSTZSF6211-96-15 08:24:11755Okfkrxxz Y[facility] WQGKXHSEMYBQ7553-62-88 08:24:0027[facility] YejkqewLVIBUSOEGEWJ7909-52-01 08:24:00 139[facility] MotwtpyKAITHSLCRKJS2584-88-02 08:24:003.6[facility] WMPAOYEDXQAF6473-83-29 08:24:000.70[facility] DnhrpzxLYEVFHSPOCOC9604-48-83 08:24:008.4[facility] SikcnxoSYUIJHSCDEPL0170-46-22 08:24:52951Qcfpxike [facility] TVDTKSZKPEOZ1315-95-21 08:24:0086[facility] TdxngjkCEKOHISEFJFO6917-32-24 08:24:00 6[facility] QcofzouWFPIUIZNOM8009-90-35 08:24:0011.6[facility]annHEMATOLOGY 2019-01-26 08:24:003.78[facility] DvvjogpOWMOKPTNCR5901-54-28 08:24:0013.3[facility] VgiahcvIGDCQYCVKN1015-27-65 08:24:0034.0[facility] PcdrkzaODHXOVIWPD1842-79-57 08:24:006.3[facility] ZjdyipnLBIZSRAIZU3938-42-84 08:24:00 Test Item Value Reference Range Interpretation Comments MCH (test code = MCH) 30.7 pg 27.0-31.0 [facility] FydvitcAXZZBYVONS7393-60-16 08:24:0090.3[facility] HermannHEMATOLOGY 2019-01-26 08:24:0034.2[facility] XrvpeisTVHBKABWEA2021-53-89 08:24:82900Eiafjmnn BpsswybNDRTUTSVLR2346-47-55 08:24:007.5[facility] HermannCHEM DTEGI4307-10-38 09:14:62757Efaxfyjj HermannCHEM FYQFP7988-90-33 09:14:008.5[facility]annCHEM OJTTP6295-79-75 09:14:0013.3[facility]annCHEM EZARO3342-94-13 09:14:0024 [facility]annCHEM QTGMN1044-84-17 09:14:32531Kqjqxury HermannCHEM PANEL 2019-01-25 09:14:0081[facility]annCHEM GESHV2399-96-92 09:14:002[facility]annCHEM BMARE9348-99-42 09:14:003.3[facility]annCHEM VVICX5674-06-00 09:14:000.60[facility]annCHEM QFFTF8136-23-57 09:14:38182Xxznaxql HermannCHEM EGIDE5884-53-59 09:14:84232Puvhupxo HermannCHEM GUWGV3551-04-33 09:14:008.5 [facility]annCHEM VKCXN1240-53-78 09:14:0013.3[facility]annCHEM PANEL 2019-01-25 09:14:0024[facility]annCHEM MLFIX0891-48-65 09:14:68524Ctjzczvr HermannCHEM HXDES3412-33-95 09:14:0081[facility]annCHEM GOFDI4314-97-97 09:14:002[facility]annCHEM SDTES4476-03-75 09:14:003.3[facility]annCHEM XQPXZ5937-89-19 09:14:000.60[facility]annCHEM RKDHI4157-72-59 09:14:53329 [facility]annMOLECULAR EUEHPPJLYN6665-60-20 16:22:00Negative (01/23/19 11:22 AM)[facility] HermannMOLECULAR AXIOIYOTKN2044-02-95 16:22:00Negative (01/23/19 11:22 AM)[facility]annCHEM ENPZT0007-18-57 15:42:002.76[facility]annCHEM PANEL 2019-01-23 15:42:002.76[facility]annCHEM GRMYG1221-53-45 12:32:000.9[facility]annCHEM XIEEN0367-96-88 12:32:000.9[facility]annCHEM IYXIH6237-40-49 10:50:002.0[facility]annCHEM PFYYH1451-32-53 10:50:76979Uvlkrynz HermannCHEM KRORE3060-99-75 10:50:0023[facility]annCHEM OWSWT0546-98-38 10:50:80720 [facility]annCHEM SEBAY6975-31-22 10:50:003.1[facility]annCHEM PANEL 2019-01-23 10:50:10758Ysvtousp HermannCHEM WRNGU7945-71-14 10:50:005[facility]annCHEM GWBBR7516-66-17 10:50:000.50[facility]annCHEM CNSOJ7800-50-57 10:50:007.8[facility]annCHEM DJPAY9329-74-81 10:50:0083[facility]annCHEM IVWAU7027-75-30 10:50:0010.1[facility] KdyqyekTLGFICEEVY2474-80-86 10:50:000.2 [facility] UjalyghJIQERZLDGW1460-66-04 10:50:000.8[facility] HermannHEMATOLOGY 2019-01-23 10:50:005.5[facility] VdldrufSPQDPWREUS9667-56-24 10:50:002.2[facility] IjuzfkjOZODOGJYLQ3807-33-50 10:50:000.1[facility] VgneiyrSYYQIZDDLY3342-82-86 10:50:0063.6[facility] QdrpqrzARJFHKCEKF6662-68-73 10:50:008.9[facility] LWFDKETRBM4253-48-87 10:50:002.3[facility] MymyfmwRASUOVNJPD5176-32-46 10:50:00 Normal (01/23/19 5:50 AM)[facility] KikvhdvPHJCPNNHAH8666-20-44 10:50:00Normal (01/23/19 5:50 AM)[facility] YbakkzfGRGEGTDLML7243-34-68 10:50:0025.1[facility] OtbscxbUKIFDDYSAD1493-36-37 10:50:0013.1[facility] XlqqwddCRIYYZRNZH2067-81-58 10:50:09037Ddojzyam VqmvdaxQTKDNVYSDJ2547-55-91 10:50:007.7[facility] HCZMQKTSCO2671-98-55 10:50:008.6[facility] WvdfdjrADYKEQLEXQ3892-97-28 10:50:00 10.0[facility] GjzrvfeSXVGTEHAXO6042-67-04 10:50:0034.6[facility] HermannHEMATOLOGY 2019-01-23 10:50:0028.7[facility] NxhukieHYDJOJONGI0502-33-78 10:50:0087.8[facility] UmryrfoMFWTUPHXLB8943-60-31 10:50:00 Test Item Value Reference Range Interpretation Comments MCH (test code = MCH) 30.4 pg 27.0-31.0 [facility] GpjtffcJMPDHZDWTD1089-18-38 10:50:003.27[facility]annHEMATOLOGY 2019-01-23 10:50:31562Sxdawnqz StsgjqmVBYWZMGTKJ4090-98-28 10:50:007.7[facility] MsgbmwnKDZFBBAZUE9493-80-75 10:50:008.6[facility] FylkvhjCSKEXAXVMP4059-09-99 10:50:0010.0[facility] LygdwncOFBSEARSVK3985-31-76 10:50:0034.6[facility] VHFEBAKREA7173-24-92 10:50:0028.7[facility] AiwtoksAFOHQYIJTY7766-77-86 10:50:00 87.8[facility] BrcvnfjYBZSBEKLZS4666-09-54 10:50:00 Test Item Value Reference Range Interpretation Comments MCH (test code = MCH) 30.4 pg 27.0-31.0 [facility]annCHEM CVYWQ8522-89-02 10:50:002.0[facility] HermannCHEM PANEL 2019-01-23 10:50:10029Hznsandn HermannCHEM GPFDP7092-58-86 10:50:0023[facility]annCHEM NTIQH5034-61-19 10:50:46239Tkskcjzg QipnnfuGOWYRSRNBX0479-76-79 10:50:003.27[facility]annCHEM BOWDO7213-78-52 10:50:003.1[facility]annCHEM YJAER4566-76-42 10:50:93222Lvewzmgo HermannCHEM JWHAT5975-72-50 10:50:005 [facility]annCHEM STNTZ3833-82-74 10:50:000.50[facility]annCHEM PANEL 2019-01-23 10:50:007.8[facility]annCHEM ACFET4290-20-84 10:50:0083[facility]annCHEM BKKDG1914-89-13 10:50:0010.1[facility] NpfrwfoSTWNKGTEFD6073-63-47 10:50:000.2[facility] GmootvgMBUXKDMXCN5600-92-87 10:50:000.8[facility] YJJTXOUCGN9886-21-53 10:50:005.5[facility] AzkywgrIGEUIOTZBJ9637-44-22 10:50:002.2 [facility] UlaxxzvIVODTGIOCR4614-97-15 10:50:000.1[facility]annHEMATOLOGY 2019-01-23 10:50:0063.6[facility] KhlayfpEPGBSPGTSX2605-18-88 10:50:008.9[facility] EwswkjaCQFQCHKLDS9881-96-34 10:50:002.3[facility] JalssdqGFVCVETUJD6396-76-02 10:50:00Normal (01/23/19 5:50 AM)[facility] WaamxcoLEWNRIBDJE7352-33-32 10:50:00 Normal (01/23/19 5:50 AM)[facility] ZgptwicWPENBKDSHX8412-43-44 10:50:0025.1[facility] HpayulaWYWTELWNBL5370-21-22 10:50:0013.1[facility] HermannCHEM GUJNW7426-58-37 11:32:002.4[facility] HermannCHEM FHMLY9323-91-61 11:32:002.4[facility] HermannCHEM PBIPK1989-44-01 09:04:003.0[facility]annCHEM VPEQP4625-20-90 09:04:003.0 [facility]annURINE AND WILAK0536-97-64 07:14:00 Test Item Value Reference Range Interpretation Comments UA Spec Grav (test code = UA Spec 1.014 1 Grav) [facility] NFDSR5656-13-61 07:14:00 Test Item Value Reference Range Interpretation Comments UA pH (test code = UA pH) 6.0 1 5.0-8.0 [facility] RPKKR2339-38-21 07:14:00Negative (01/22/19 2:14 AM) [facility] EFCBC7112-44-51 07:14:00Negative *NA*(01/22/19 2:14 AM) [facility] UDQQT3614-60-71 07:14:00Negative *NA*(01/22/19 2:14 AM) [facility] YQYUS1391-58-84 07:14:00Negative *NA*(01/22/19 2:14 AM) [facility] MNDEF7144-02-14 07:14:00Negative (01/22/19 2:14 AM) [facility] IUVTK4393-93-55 07:14:00Negative (01/22/19 2:14 AM) [facility] ZHMMN5875-54-18 07:14:00Negative (01/22/19 2:14 AM) [facility] XXART0930-08-34 07:14:00<1[facility] FBTYN1112-87-16 07:14:0025[facility]UR[facility] AND WMKQE6856-89-52 07:14:002 [facility] TQXTR7807-18-77 07:14:00Light Yellow *NA*(01/22/19 2:14 AM)[facility] COUYC5535-23-91 07:14:00Clear (01/22/19 2:14 AM) [facility] BSVGH1027-74-23 07:14:00 Test Item Value Reference Range Interpretation Comments UA Spec Grav (test code = UA Spec 1.014 1 Grav) [facility] XSRNZ7623-54-75 07:14:00 Test Item Value Reference Range Interpretation Comments UA pH (test code = UA pH) 6.0 1 5.0-8.0 [facility] JPQKF5419-59-42 07:14:00Negative (01/22/19 2:14 AM) [facility] XFZFO9551-30-54 07:14:00Negative *NA*(01/22/19 2:14 AM) [facility] GUDEW8761-22-13 07:14:00Negative *NA*(01/22/19 2:14 AM) [facility] ROYML7905-95-25 07:14:00Negative *NA*(01/22/19 2:14 AM) [facility] WVQRS7271-30-31 07:14:00Negative (01/22/19 2:14 AM) [facility] XTBZL7650-24-64 07:14:00Negative (01/22/19 2:14 AM) [facility] KPDXV5771-54-73 07:14:00Negative (01/22/19 2:14 AM) [facility] QCFQC5890-97-31 07:14:00<1[facility] GPAQZ9748-48-20 07:14:0025[facility]UR[facility] FZDPU1981-18-36 07:14:002 [facility] NTKOP1274-57-63 07:14:00Light Yellow *NA*(01/22/19 2:14 AM)[facility] MQMOP4719-85-26 07:14:00Clear (01/22/19 2:14 AM) [facility] LphlgenMCMWU8451-28-86 05:16:000.90[facility] MiqmcfuNVTQK5002-73-24 05:16:000.90[facility] BodqwdyDIEXTFUPXI8252-65-58 05:01:0013.6[facility] IUEBHBJBSJ5366-52-69 05:01:55606Wxfjsfrb SvowajdJLBBCDBNEX5859-53-18 05:01:007.3 [facility] MztcyagNLWAFIYAFZ8400-26-15 05:01:0014.0[facility]annHEMATOLOGY 2019-01-22 05:01:004.85[facility] HktjlzoJXCUJUQPLC9977-73-62 05:01:0042.7[facility] XatssszLGOTTPZHAN9914-72-43 05:01:00 Test Item Value Reference Range Interpretation Comments MCH (test code = MCH) 29.0 pg 27.0-31.0 [facility] YmrdxmsHZQGBDRJMS1697-35-47 05:01:0088.2[facility]annHEMATOLOGY 2019-01-22 05:01:00 Test Item Value Reference Range Interpretation Comments INR (test code = INR) 0.96 1 0.85-1.17 [facility] ZhvrgsaMYEZKVHDOT8331-10-54 05:01:00 Test Item Value Reference Range Interpretation Comments PT (test code = PT) 12.6 s 12.0-14.7 [facility] ZbglhccORSDIPQMXC3238-20-78 05:01:00 Test Item Value Reference Range Interpretation Comments PTT (test code = PTT) 25.9 s 22.9-35.8 [facility] XZCAERE1235-63-60 05:01:00Negative (01/22/19 12:01 AM) [facility] RUQYXHT9035-02-45 05:01:00<0.02[facility] CARDIAC QHYRIQA1151-65-06 05:01:0049[facility] HermannCHEM QTBVA6968-62-99 05:01:000.6[facility] HermannCHEM PZNAC9796-85-65 05:01:31728Ofbasoeg HermannCHEM NHOLJ0273-95-40 05:01:004.0[facility]annCHEM NLMEP6865-54-06 05:01:0017 [facility]annCHEM DEGMS8922-18-60 05:01:0025[facility]annCHEM PANEL 2019-01-22 05:01:008.1[facility]annCHEM VBORX8383-36-27 05:01:00 Test Item Value Reference Range Interpretation Comments B/C Ratio (test code = B/C Ratio) 20 1 6-25 [facility]annCHEM UGBOR9385-48-32 05:01:00 Test Item Value Reference Range Interpretation Comments A/G Ratio (test code = A/G Ratio) 1.0 1 0.7-1.6 [facility]annCHEM ZZLZM2133-27-16 05:01:004.1[facility]annCHEM PANEL 2019-01-22 05:01:006.90[facility] TvdaafyLFASHIETPCYDZ2559-83-92 05:01:00Negative *NA*(01/22/19 12:01 AM)[facility] KrntciyXPMWBNRUCW3891-13-93 05:01:000.1[facility] IhqndliOPHPIYFCUQ7143-87-85 05:01:000.7[facility] SsjlkrjVRORGKJZNQ1569-44-67 05:01:000.0[facility] KqwlfxuYXHWZZMIMP0763-42-18 05:01:000.0[facility] HCWAQMMHDJ1473-82-87 05:01:000.9[facility] TasyzifPQVRCCAGAT3463-71-07 05:01:008.6 [facility] XpgfsgoRGYXXLAXTB5091-22-49 05:01:000.6[facility]annHEMATOLOGY 2019-01-22 05:01:0086.5[facility] EtahkfpFOAWQQHCZQ5371-10-85 05:01:005.7[facility] QekwurfRIGYAJYBGG0401-61-51 05:01:006.9[facility] WnwmmbmCKGSQCSDLB6704-39-28 05:01:009.9[facility] MlkkoqaKTQNATIJGO1668-78-92 05:01:0032.8[facility] QZHFVKHCJB3169-80-12 05:01:0013.6[facility] CljsrryCATRDKLKSB2866-66-34 05:01:00 443[facility] XxyuepuVGWFNKEDKX5297-89-91 05:01:007.3[facility]annHEMATOLOGY 2019-01-22 05:01:0014.0[facility] ZytpirbNFOXDWKUBW0928-55-06 05:01:004.85[facility] XupuoslHXMKOQIZAC2502-38-58 05:01:0042.7[facility] RtvsbdcSHFBHFMKBA5829-01-54 05:01:00 Test Item Value Reference Range Interpretation Comments MCH (test code = MCH) 29.0 pg 27.0-31.0 [facility] RklrgqmJGJLRPUDIX1162-59-21 05:01:0088.2[facility]annHEMATOLOGY 2019-01-22 05:01:00 Test Item Value Reference Range Interpretation Comments INR (test code = INR) 0.96 1 0.85-1.17 [facility] YqzdaktLASZJSYSRL0388-84-21 05:01:00 Test Item Value Reference Range Interpretation Comments PT (test code = PT) 12.6 s 12.0-14.7 [facility] QcgfitlNBIRLRHHNR7420-83-54 05:01:00 Test Item Value Reference Range Interpretation Comments PTT (test code = PTT) 25.9 s 22.9-35.8 [facility] HQQKTNS8219[facility]35-29 05:01:00Negative (01/22/19 12:01 AM) [facility] RVBRPYH9496-45-46 05:01:00<0.02[facility] CARDIAC JLQWRCU2631-38-42 05:01:0049[facility]annCHEM TUHOO5716-48-90 05:01:000.6[facility]annCHEM BWLHT1548-85-44 05:01:35368[facility] HermannCHEM DGMDA7955-18-27 05:01:004.0[facility]annCHEM HKGTT8435-64-40 05:01:0017 [facility]CHE[facility] PPIJX2397-87-95 05:01:0025[facility]annCHEM PANEL 2019-01-22 05:01:008.1[facility]annCHEM JOBAZ2540-21-36 05:01:00 Test Item Value Reference Range Interpretation Comments B/C Ratio (test code = B/C Ratio) 20 1 6-25 [facility]annCHE[facility] [id number] 05:01:00 Test Item Value Reference Range Interpretation Comments A/G Ratio (test code = A/G Ratio) 1.0 1 0.7-1.6 [facility]annCHE[facility] [id number] 05:01:004.1[facility]annCHEM PANEL 2019-01-22 05:01:006.90[facility] HtbnlmdONPITJZBEEXAW4895-42-89 05:01:00Negative *NA*(01/22/19 12:01 AM)[facility] NnzfftgBYJZTXUCEV1571-08-50 05:01:000.1[facility] MxicordPAXEOPSAIC0057-02-96 05:01:000.7[facility] VqoybgeJUHZDFPPYX7963-60-61 05:01:000.0[facility] RufazzhNIGRTIXFZY6168-42-91 05:01:000.0[facility] DSFEMUBIMM0323-91-66 05:01:000.9[facility] GjgosnnXDMJRJHQFS2855-78-53 05:01:008.6 [facility] TceedubSFXVKXFATZ1232-69-57 05:01:000.6[facility]annHEMATOLOGY 2019-01-22 05:01:0086.5[facility] RuuutowLNWNLPEWRH1996-12-37 05:01:005.7[facility] QrieevmQDQYWPFJLW0091-69-62 05:01:006.9[facility] VpbzhnaKPNKHGIHFG4356-58-15 05:01:009.9[facility] HcmyrkpMAXSZNOYFV2712-70-56 05:01:0032.8[facility] [id number] 14:36:00 Test Item Value Reference Range Interpretation [...] 0.00-0.01 N code = ETOHU) Comprehensive Metabolic Tquvw3239-54-10 14:36:00 Test Item Value Reference Range Interpretation [...] ars ofage have not been validated by e MDRD study and nyasia lee be interpretedwith caution.eGFR Re sult Interpretation: eGFR > or = 60 is in t he Normal RangeeGF R < 60 may mean kidney diseaseeGFR < 1 5 may mean kidney failureRange s recommended by the National Kid[employer] Foundation,http :[email or web address] ep.nih.gov Urinalysis Sfbssqzz5648-08-44 14:32:00 Test Item Value Reference Range Interpretation Comments Color (test code = COLOR) Yellow Yellow,Straw,Pl N yellow Clarity (test code = Clear Clear N CLAR) Specific [place] (test 1.024 1.001-1.035 N code = SPGR) [...] code = Few /HPF BACT) CBC with Vddamqqstmjd8973-05-15 14:21:00 Test Item Value Reference Range Interpretation [...] code = ALYMPH) 3.0 K/cumm 0.5-4.6 N Mccreary Abs (test code = AMONO) 0.5 K/cumm 0.0-1.2 N Eos Abs (test code = AEOS) 0.19 K/cumm 0.00-0.74 N Baso Abs (test code = ABASO) 0.1 K/cumm 0.00-0.21 N
--- NOTE | 2021-09-24 01:09 | ER ---
Nurse's Notes [facility] Name: Tiffany Quinn Age: 51 yrs Sex: Female : 1970 Arrival Date: 09/23/2021 Time: 20:54 Bed DIS3 Private MD: Diagnosis: Drug abuse counseling and surveillance Presentation: 09/23 21:15 Chief complaint: Patient states: I did meth today at 1900 - I am feeling anxious and ld1 reporting SOB. Upon arrival to ER SpO2 99%. Coronavirus screen: At this time, the client does not indicate any symptoms associated with coronavirus-19. Ebola Screen: No symptoms or risks identified at this time. Initial Sepsis Screen: Does the patient meet any 2 criteria? No. Patient's initial sepsis screen is negative. Does the patient have a suspected source of infection? No. Patient's initial sepsis screen is negative. Risk Assessment: Do you want to hurt yourself or someone else? Patient reports no desire to harm self or others. Onset of symptoms was September 23, 2021. 21:15 Method Of Arrival: Ambulatory ld1 21:15 Acuity: MANUEL 3 ld1 Triage Assessment: 21:17 General: Appears in no apparent distress. comfortable, Behavior is cooperative, ld1 appropriate for age, anxious. Pain: Denies pain. EENT: No signs and/or symptoms were reported regarding the EENT system. Neuro: Level of Consciousness is awake, alert, obeys commands, Oriented to person, place, time, situation, Appropriate for age. Cardiovascular: Capillary refill < 3 seconds Patient's skin is warm and dry. Respiratory: Reports shortness of breath Airway is patent Respiratory effort is even, unlabored, Respiratory pattern is regular, symmetrical, Onset: The symptoms/episode began/occurred gradually, the patient has mild shortness of breath. GI: Abdomen is flat, non-distended. : No signs and/or symptoms were reported regarding the genitourinary system. Derm: No signs and/or symptoms reported regarding the dermatologic system. Musculoskeletal: No signs and/or symptoms reported regarding the musculoskeletal system. 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 - Social history:: Smoking status: Patient denies any tobacco usage or history of. Patient uses street drugs, Methamphetamine (Meth) Patient/guardian denies using alcohol. Screenin:42 Abuse screen: Denies threats or abuse. Denies injuries from another. Nutritional lp1 screening: No deficits noted. Tuberculosis screening: No symptoms or risk factors identified. Fall Risk None identified. Assessment: 21:42 General: Appears unkempt, Behavior is cooperative. General: Behavior is anxious. Pain: lp1 Denies pain. Neuro: Level of Consciousness is awake, alert, obeys commands, Oriented to person, place. Cardiovascular: Patient's skin is warm and dry. Respiratory: Respiratory effort is even, Respiratory pattern is regular. GI: No signs and/or symptoms were reported involving the gastrointestinal system. : No signs and/or symptoms were reported regarding the genitourinary system. EENT: No signs and/or symptoms were reported regarding the EENT system. Derm: Skin is intact, Skin is dry, Skin is normal. Musculoskeletal: No deficits noted. 22:28 Reassessment: Patient appears in no apparent distress at this time. Reassessment: lp1 Patient offered food and drink, declined at this time. General: Appears in no apparent distress. Behavior is calm. 09/24 00:00 Reassessment: Patient appears in no apparent distress at this time. Patient given water lp1 and ciara crackers; no further needs, watching TV. 01:07 Reassessment: Patient appears in no apparent distress at this time. Patient states lp1 feeling better. Vital Signs: 09/23 21:15 BP 108 / 96; Pulse 139; Resp 20; Temp 97.6(TE); Pulse Ox 99% on R/A; Weight 79.83 kg; ld1 Height 5 ft. 3 in. (160.02 cm); Pain 0/10; 22:28 BP 136 / 76; Pulse 131; Resp 18; Pulse Ox 99% on R/A; lp1 23:35 BP 150 / 83; Pulse 124; Resp 18; Pulse Ox 99% on R/A; lp1 12 01:07 BP 144 / 70; Pulse 117; Resp 20; Pulse Ox 100% on R/A; Pain 0/10; lp1 09/23 21:15 Body Mass Index 31.18 (79.83 kg, 160.02 cm) ld1 ED Course: 09/23 20:54 Patient arrived in ED. 21:17 Triage completed. ld1 21:17 Arm band placed on left wrist. ld1 21:19 Guanako Palomino PA is PHCP. jr8 21:19 Manuel Ward MD is Attending Physician. jr8 21:42 Patient has correct armband on for positive identification. lp1 21:42 Inserted saline lock: 24 gauge in left hand, using aseptic technique. lp1 22:27 Lora Lozada, RN is Primary Nurse. lp1 09/24 00:52 No provider procedures requiring assistance completed. lp1 01:26 IV discontinued, No redness/swelling at site. Pressure dressing applied. lp1 Administered Medications: 09/23 21:42 Drug: NS 0.9% 1000 ml Route: IV; Rate: 1 bolus; Site: left hand; lp1 23:43 Follow up: IV Status: Completed infusion; IV Intake: 1000ml lp1 23:43 Drug: NS 0.9% 1000 ml Route: IV; Rate: 1 bolus; Site: left hand; lp1 09/24 01:25 Follow up: IV Status: Completed infusion; IV Intake: 1000ml lp1 Intake: 09/23 23:43 IV: 1000ml; Total: 1000ml. lp1 09/24 01:25 IV: 1000ml; Total: 2000ml. lp1 Outcome: 01:09 Discharge ordered by . jr8 01:26 Discharged to home ambulatory. lp1 01:26 Condition: good 01:26 Discharge instructions given to patient, Instructed on discharge instructions, follow up and referral plans. Demonstrated understanding of instructions, follow-up care. 01:26 Patient left the ED. lp1 Signatures: Lora Lozada RN RN lp1 Guanako Palomino PA PA jr8 Radha Paez RN RN 1 Laly Lutz
--- NOTE | 2021-09-24 01:09 | EDPHYS ---
Physician Documentation [facility] Name: Tiffany Quinn Age: 51 yrs Sex: Female : 1970 Arrival Date: 09/23/2021 Time: 20:54 Bed DIS3 Private MD: ED Physician Manuel Ward HPI: 09/23 22:46 This 51 yrs old Female presents to ER via Ambulatory with complaints of Breathing jr8 Difficulty, Anxiety. 22:46 Is a 51-year-old female who presented to the emergency room with anxiety and shortness jr8 of breath. Patient was brought in by EMS. Patient stated that she had been groggy so she decided to take methamphetamines and now feels anxious. Patient alert and oriented x4 upon arrival but anxious. Heart rate 131. In no acute distress.. 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 - Social history:: Smoking status: Patient denies any tobacco usage or history of. Patient uses street drugs, Methamphetamine (Meth) Patient/guardian denies using alcohol. ROS: 22:46 Eyes: Negative for injury, pain, redness, and discharge, ENT: Negative for injury, jr8 pain, and discharge, Neck: Negative for injury, pain, and swelling, Cardiovascular: Negative for chest pain, palpitations, and edema, Abdomen/GI: Negative for abdominal pain, nausea, vomiting, diarrhea, and constipation, Back: Negative for injury and pain, MS/Extremity: Negative for injury and deformity, Skin: Negative for injury, rash, and discoloration, Neuro: Negative for headache, weakness, numbness, tingling, and seizure. 22:46 Respiratory: Positive for shortness of breath. 22:46 Psych: Positive for anxiety, drug dependence. Exam: 22:46 Constitutional: This is a well developed, well nourished patient who is awake, alert, jr8 and in no acute distress. 22:46 Respiratory: Lungs have equal breath sounds bilaterally, clear to auscultation and percussion. No rales, rhonchi or wheezes noted. No increased work of breathing, no retractions or nasal flaring. Abdomen/GI: Soft, non-tender, with normal bowel sounds. No distension or tympany. No guarding or rebound. No evidence of tenderness throughout. Skin: Warm, dry with normal turgor. Normal color with no rashes, no lesions, and no evidence of cellulitis. MS/ Extremity: Pulses equal, no cyanosis. Neurovascular intact. Full, normal range of motion. Neuro: Awake and alert, GCS 15, oriented to person, place, time, and situation. Cranial nerves II-XII grossly intact. Motor strength 5/5 in all extremities. Sensory grossly intact. Cerebellar exam normal. Normal gait. Psych: Awake, alert, with orientation to person, place and time. Behavior, mood, and affect are within normal limits. Mild anxiety present 22:46 Cardiovascular: Rate: tachycardic, Rhythm: regular, Pulses: Pulses are 2+ in bilateral radial, brachial, femoral, popliteal, posterior tibial and and dorsalis pedis arteries.. Heart sounds: normal, normal S1and S2, no S3 or S4, no murmur, no rub, no gallop, Edema: is not appreciated. Vital Signs: 21:15 BP 108 / 96; Pulse 139; Resp 20; Temp 97.6(TE); Pulse Ox 99% on R/A; Weight 79.83 kg; ld1 Height 5 ft. 3 in. (160.02 cm); Pain 0/10; 22:28 BP 136 / 76; Pulse 131; Resp 18; Pulse Ox 99% on R/A; lp1 23:35 BP 150 / 83; Pulse 124; Resp 18; Pulse Ox 99% on R/A; lp1 09/24 01:07 BP 144 / 70; Pulse 117; Resp 20; Pulse Ox 100% on R/A; Pain 0/10; lp1 09/23 21:15 Body Mass Index 31.18 (79.83 kg, 160.02 cm) ld1 MDM: 09/23 21:19 Patient medically screened. 8 22:48 Data reviewed: vital signs, nurses notes, and as a result, I will discharge patient. jr8 Data interpreted: Pulse oximetry: on room air is 99 %. Interpretation: normal. Counseling: I had a detailed discussion with the patient and/or guardian regarding: the historical points, exam findings, and any diagnostic results supporting the discharge/admit diagnosis, the need for outpatient follow up, a family practitioner, a psychiatrist, to return to the emergency department if symptoms worsen or persist or if there are any questions or concerns that arise at home. ED course: Patient overall feeling better. Heart rate has decreased. Hemodynamically stable otherwise. Had a detailed discussion with patient that she needs to quit her amphetamine use as we have seen her multiple times in the past for this. Explained her that she needs to follow-up with her [employer]. counselor and see her PCP. If she cannot stop that she needs to get help and go to a rehabilitation center.. 09/23 21:19 Order name: IV; Complete Time: 21:42 jr8 Administered Medications: 21:42 Drug: NS 0.9% 1000 ml Route: IV; Rate: 1 bolus; Site: left hand; lp1 23:43 Follow up: IV Status: Completed infusion; IV Intake: 1000ml lp1 23:43 Drug: NS 0.9% 1000 ml Route: IV; Rate: 1 bolus; Site: left hand; lp1 09/24 01:25 Follow up: IV Status: Completed infusion; IV Intake: 1000ml lp1 Disposition: 01:46 Co-signature as Attending Physician, Manuel Ward MD I agree with the assessment and rn plan of care. Attestation: The patient's history, exam findings, diagnostics, and a summary of any interventions or procedures was reviewed in detail with Guanako WHITTAKER. Disposition Summary: 09/24/21 01:09 Discharge Ordered Location: Home jr8 Problem: new jr8 Symptoms: have improved jr8 Condition: Stable jr8 Diagnosis - Drug abuse counseling and surveillance jr8 Followup: jr8 - With: Private Physician - When: 1 - 2 days - Reason: Recheck today's complaints, Continuance of care, Re-evaluation by your physician Discharge Instructions: - Discharge Summary Sheet jr8 - Illegal Drug Use Information, Adult jr8 Forms: - Medication Reconciliation Form jr8 - Thank You Letter jr8 - Antibiotic Education jr8 - Prescription Opioid Use jr8 Signatures: Manuel Ward MD MD rn LozadaLora RN RN lp1 Guanako Palomino PA PA jr8 Radha Paez, RN RN ld1 Corrections: (The following items were deleted from the chart) 09/23 22:47 22:46 Psych: Positive for anxiety, [place]
[2021-09-24 02:13] VITALS: TEMP 97.6
[2021-09-24 02:19] VITALS: BP 144/70; O2SAT 100
== END 2021-09-24 01:26 | disposition home or self-care (01) ==
LOC: ER 20:49
DX: Z71.51 Drug abuse counseling and surveillance of drug abuser (principal); F31.9 Bipolar disorder, unspecified; Z88.5 Allergy status to narcotic agent; Z88.8 Allergy status to other drugs, medicaments and biological substances
CPT/HCPCS: 96360; 96361; 99283

== ENCOUNTER 2021-09-24 06:47 | Emergency (ER) | payer OTHER ==
--- OUTSIDE RECORDS SUMMARY | 2021-09-24 07:09 | XMS REPORT | Continuity of Care Document ---
:1970 Author Organization [facility] [place] t Address [address] [place] [address] Care Team Providers Name Role Phone UNKNOWN [...] Policy Number Effective Date Expiration Date S [facility] OF [place] - [id number] 2020 [place] 00:00:00 (MEDICARE REPLACEMENT/ADVANT AGE - [...] GASTROENTE RITIS AND COLITIS Active 01/21/2019 [facility] Irregular Irregular Disease Active Uni vers menstrual menstrual 8-15 ity of cycle cycle 00:00: [address] Skin Skin Disease Active Univers lesion lesion 8-15 ity of 00:00: [address] Psychiatri Psychiatri Disease Active U nivers c disorder c disorder 8-15 it y of 00:00: [address] Well woman Well woman Disease Active U nivers exam with exam with 8-15 ity of routine routine 00:00: [place] gynecologi gynecologi 00 Me dical nicky exam nicky exam Branch INFECTIOUS Diagnosis Active 2019-02-06 Memoria GASTROENTE 08:58:00 l RITIS AND Yonis COLITIS, INFECTIOUS GASTROENTE RITIS AND COLITIS, Active [facility] Allergies, Adverse Reactions, Alerts Allergy Allergy Status Severity Reaction(s) Onset Inactive Treating Comm ents Source Name Type Date Date Clinician Phenerga Phenerga Active Memori a n n l Yonis NO KNOWN Drug Active Univers ALLERGIE Class ity of S [facility] Social History Social Habit Start Date Stop Date Quantity Comments Source History of Cigarette Smoker Universi ty of tobacco use [facility] Tobacco Comment 2-3 cigs a day [facility] Exposure to Not sure [place] of SARS-CoV-2 [facility] (event) [place] Tobacco use and 2016-06-08 2016-06-08 [facility] 00[facility]00:00 [facility] Alcohol intake 2016-06-08 2016-06-08 0 /d University of 00:00:00 00:00:00 [facility] Sex Ass[birth year] At [birth year] Universit y of 00:00:00 00:00:00 [facility] Smoking Status Start Date Stop Date Source Social History 2019-01-22 05:00:12 [facility] Her urena Current some day smoker 2016-06-08 00:00:00 [facility] Medications Ordered Filled Start Stop Current Ordering Indication Dosage Frequency Signature Comments Components Source Medication Medication Date Date Medication? Clinician (SIG) Name Name cefTRIAXone 2020-10- No 1000mg 1,000 mg, Univers (ROCEPHIN) 17 11-17 IV ity of 1,000 mg in 08:30: 08:01 [place], [place] NaCl 0.9% 00 :00 ONCE, 1 [...] 09/09/21 at 2330, RANDA amoxicillin 2020-10 Yes [id number] 500mg Take 1 Univers 500 mg 11-10 capsule by ity of capsule 00:00: mouth 3 [place] 00 (three) Medical times Branch daily. ondansetron 2019-10- No 4mg 4 mg, [facility] ers (ZOFRAN-ODT 12-01 Oral, ity of ) 15:15: 14:16 ONCE, 1 [place] disintegrat 00 :00 dose, Mon Med ical ing tablet 09/30/20 at [facility] 4 mg 0915, Routine ondansetron 2019-10- No 4mg 4 mg, [facility] ers (ZOFRAN-ODT 12-01- Oral, ity of ) 14:30: 13:32 ONCE, 1 [place] disintegrat 00 :00 dose, Mon Med ical ing tablet 09/30/20 at [facility] nc 4 mg 0830, Routine ondansetron 2019-10 Yes [id number] 4mg Take 1 Univers 4 mg 2-07 tablet by ity of disintegrat 00:00: mouth [place] ing tablet 00 every 8 Medica l (eight) Branch hours as needed for Nausea and Vomiting (N/V). ondansetron 2019-10 Yes [id number] 4mg Take 1 Univers 4 mg 2-07 tablet by ity of disintegrat 00:00: mouth [place] ing tablet 00 every 8 Medica l (eight) Branch hours as needed for Nausea and Vomiting (N/V). ondansetron 2019-10 Yes [id number] 4mg Take 1 Univers 4 mg 2-07 tablet by ity of disintegrat 00:00: mouth [place] ing tablet 00 every 8 Medica l (eight) Branch hours as needed for Nausea and Vomiting (N/V). ondansetron 2019-10 Yes [id number] 4mg Take 1 Univers 4 mg 2-07 tablet by ity of disintegrat 00:00: mouth [place] ing tablet 00 every 8 Medica l (eight) Branch hours as needed for Nausea and Vomiting (N/V). ciprofloxac 2019 Yes 500 mg = 1 Memoria in 500 mg 4-04 tab, PO, l oral tablet 17:35: [id number], X [place] 00 4 day, # 8 tab, 0 [...] 4-04 tab, PO, l oral tablet 17:35: [id number], X [place] 00 4 day, # 8 tab, 0 Refill(s) Ondansetron 2018- Yes 4 mg = 1 Me moria 4 MG Oral 4-04 tab, PO, l Tablet 17:35: Q6H, PRN [place] [Zofran] 00 Nausea/Vom iting, # 20 tab, [...] s with feeding tube less than 14 Vietnamese (Dobhoff, J-tube etc) and pediatric and patients. Potassium No Notes: Memori a Chloride 4-03 (Same as: l 13:26: K-Dur 20) Yonis "Do Not Crush" Give with food and full glass of water For patients unable to swallow tablet, dissolve in one half glass of water. Allow about 2 minutes for the tablets to disintegra te. Stir before giving to prepare slurry and administer . Please exclude Patient s with feeding tube less than 14 Vietnamese (Dobhoff, J-tube etc) and pediatric and patients. Strattera No 0.5 mg/kg, Me moria 01-24 Route: PO, l 14:00: QAM, [place] Dosing Weight 75, kg, Start date: 01/24/19 [...] ia 4- (Same As: l 18:00: KlonoPIN) [place] Flagyl No Notes: Memoria 4- (Same as: l 15:00: Flagyl) Yonis 00 Take with food/ avoid alcohol Cipro No Notes: May Memori a - interfere l 15:00: w/enteral Yonis 00 feedings - Take 1 hr before or 2 hrs after antacids, dairy pdt & minerals. On empty stomach. Flagyl No Notes: Memoria 4- (Same as: l 15:00: Flagyl) [place] 00 Take with food/ avoid alcohol Cipro No Notes: February Memori a 4- interfere l 15:00: w/enteral [place] 00 feedings - Take 1 hr before [...] PO, ONCE, l mEq oral 14:20: 0 [place] tablet, 00 Refill(s) extended release Metronidazo No 500 mg, Mem oria le 500 MG 4-01 PO, l Oral Tablet 14:20: [id number], 0 H ermann [Flagyl] 00 Refill(s) Ciprofloxac No 500 mg, Mem oria in 500 MG 01 PO, l Oral Tablet 14:20: [id number], 0 [place] [Cipro] 00 Refill(s) potassium Yes 40 mEq, Memor ia chloride 20 -01 PO, ONCE, l mEq oral 14:20: 0 [place] tablet, 00 Refill(s) extended release Metronidazo No 500 mg, Mem oria le 500 MG 4-01 PO, l Oral Tablet 14:20: [id number], 0 H ermann [Flagyl] 00 Refill(s) Ciprofloxac No 500 mg, Mem oria in 500 MG 4-01 PO, l Oral Tablet 14:20: [id number], 0 [place] [Cipro] 00 Refill(s) Potassium No Notes: Memori [...] s with feeding tube less than 14 Vietnamese (Dobhoff, J-tube etc) and pediatric and patients. [...] s with feeding tube less than 14 Vietnamese (Dobhoff, J-tube etc) and pediatric and patients. [...] tab, PO, l Tablet 21:08: BID, 0 [place] [Risperdal] 00 Refill(s) Strattera Yes 0.5 mg/kg, [...] tab, PO, l Tablet 21:08: BID, 0 [place] [Risperdal] 00 Refill(s) Zosyn No Notes: Memoria [...] oria 3-31 to exceed l 15:03: 400mg/day. [place] 00 (Same As: Ultram) Tramadol No Notes: [...] 01-22 Route: IM, l 09:47: Drug form: [place] 00 PDR/INJ, PRN, Dosing Weight 75.994, kg, [...] Route: IM, l 09:47: Drug form: Yonis PDR/INJ, PRN, Dosing Weight 75.994, kg, PRN [...] Memoria 3-31 (Same as: l 08:56: Zofran) [place] MEDICATION WASTE Product Size: 4 mg Product [...] moria IV - 1,000 l 05:44: ml/hr, [place] 00 Infuse Over: 1 hr, Route: IV, [...] 0.9% 3-31 Same as: l 04:52: BD [place] Posiflush Sterile NS (Bolus) No 1,000 mL, Me moria IV 3-31 1,000 l 04:51: ml/hr, Yonis 00 Infuse Over: 1 hr, Route: IV, 1,000, Drug form: INJ, ONCE, Priority: STAT, Dosing Weight 75.994 kg, Start date: 01/21/19 23:51:00 CDT, Stop date: 01/21/19 23:51:00 CDT NS (Bolus) No 1,000 mL, Me moria IV 01-22 1,000 l 04:51: ml/hr, [place] 00 Infuse Over: 1 hr, Route: IV, [...] HYDROBROMID 8-15 mouth. ity of E 19:02: [place] (CITALOPRAM 27 Medical ORAL) Branch ibuprofen 2016-0 Yes 200mg Take 200 Uni vers (ADVIL) 200 8-15 mg by ity of mg tablet 14:02: mouth [place] [id number] every 6 Medical (six) Branch hours as needed. CLONAZEPAM 2016-0 Yes Take by Uni vers (KLONOPIN 8-15 mouth. ity of ORAL) 14:02: [address] Branch CITALOPRAM 2016-0 Yes Take by Uni vers HYDROBROMID 8-15 mouth. ity of E 14:02: [place] (CITALOPRAM 27 Medical ORAL) Branch ibuprofen 2016-0 Yes 200mg Take 200 Uni vers (ADVIL) 200 8-15 mg by ity of mg tablet 14:02: mouth [place] [address] every 6 Medical (six) Branch hours as needed. CLONAZEPAM 2016-0 Yes Take by Uni vers (KLONOPIN 8-15 mouth. ity of ORAL) 14:02: [address] Branch CITALOPRAM 2016-0 Yes Take by Uni vers HYDROBROMID 8-15 mouth. ity of E 14:02: [place] (CITALOPRAM 27 Medical ORAL) Branch ibuprofen 2016-0 Yes 200mg Take 200 Uni vers (ADVIL) 200 8-15 mg by ity of mg tablet 14:02: mouth [place] [address] every 6 Medical (six) Branch hours as needed. CLONAZEPAM 2016-0 Yes Take by Uni vers (KLONOPIN 8-15 mouth. ity of ORAL) 14:02: [place] [address] Medical Branch CITALOPRAM 2016-0 Yes Take by Uni vers HYDROBROMID 8-15 mouth. ity of E 14:02: [place] (CITALOPRAM 27 Medical ORAL) Branch misoprostol 2016-0 [...] H it y of en-caff 00:00: PRN. [place] (ESGIC) 00 Medical 50-325-40 Branch mg tablet butalbital- 2015-0 Yes TK 1 TO 2 U nivers acetaminoph 8-01 T PO Q 8 H it y of en-caff 00:00: PRN. [place] (ESGIC) 00 Medical 50-325-40 Branch mg tablet butalbital- 2015-0 Yes TK 1 TO 2 U nivers acetaminoph 8-01 T PO Q 8 H it y of en-caff 00:00: PRN. [place] (ESGIC) 00 Medical 50-325-40 Branch mg tablet butalbital- 2016-0 Yes TK 1 TO 2 U nivers acetaminoph 8-01 T PO Q 8 H it y of en-caff 00:00: PRN. [place] (ESGIC) 00 Medical 50-325-40 Branch mg tablet dextroamphe 0 Yes TK 1 T PO U nivers tamine-amph 7-20 BID. ity of etamine 00:00: [place] (ADDERALL) 00 Medical 20 mg Branch tablet dextroamphe Yes TK 1 T PO U nivers tamine-amph 7-20 BID. ity of etamine 00:00: [place] (ADDERALL) 00 Medical 20 mg Branch tablet dextroamphe Yes TK 1 T PO U nivers tamine-amph 7-20 BID. ity of etamine 00:00: [place] (ADDERALL) 00 Medical 20 mg Branch tablet [...] 2021-09-10 08:01:00 138 mm[Hg] Univer sity of [facility] Diastolic blood 2021-09-10 08:01:00 97 mm[Hg] Unive rsity of [facility] Heart rate 2021-09-10 08:01:00 87 /min [facility] Respiratory rate 2021-09-10 08:01:00 20 /min [facility] Oxygen saturation in 2021-09-10 08:01:00 98 /min University of Arterial blood by [place] [facility] Pulse oximetry Branch Body temperature 2021-09-10 04:28:51 37.17 Ruthann [facility] Body height 2021-09-10 04:26:00 154.9 cm [facility] Body weight 2021-09-10 04:26:00 81.647 kg [facility] BMI 2021-09-10 04:26:00 34.01 kg/m2 [facility] Systolic blood 2021-09-09 20:06:00 150 mm[Hg] Univer sity of [facility] Diastolic blood 2021-09-09 20:06:00 89 mm[Hg] Unive rsity of [facility] Heart rate 2021-09-09 20:06:00 108 /min [facility] Body temperature 2021-09-09 20:06:00 37.22 Ruthann [facility] Respiratory rate 2021-09-09 20:06:00 18 /min [facility] Oxygen saturation in 2021-09-09 20:06:00 99 /min University of Arterial blood by Nomios nicky Pulse oximetry Branch Body weight 2021-09-09 20:05:00 81.647 kg Universi ty of [place] [facility] BMI 2021-09-09 20:05:00 32.40 kg/m2 Universi ty of [place] [facility] Systolic blood 2020-09-30 14:00:00 126 mm[Hg] Univer sity of pressure [place] [facility] Diastolic blood 2020-09-30 14:00:00 84 mm[Hg] Unive rsity of pressure [place] [facility] Heart rate 2020-09-30 14:00:00 79 /min Universi ty of [place] [facility] Oxygen saturation in 2020-09-30 14:00:00 98 /min University of Arterial blood by [facility] nicky Pulse oximetry Branch Body temperature 2020-09-30 13:26:00 37.22 Ruthann Univ ersity of [place] [facility] Respiratory rate 2020-09-30 13:26:00 16 /min Univ ersity of [place] [facility] Body weight 2020-09-30 13:26:00 72.576 kg Universi ty of [place] [facility] BMI 2020-09-30 13:26:00 28.80 kg/m2 Universi ty of [place] [facility] Systolic blood 2020-09-30 14:00:00 126 mm[Hg] Univer sity of pressure [place] [facility] Diastolic blood 2020-09-30 14:00:00 84 mm[Hg] Unive rsity of pressure [place] [facility] Heart rate 2020-09-30 14:00:00 79 /min Universi ty [facility] [place] [facility] Oxygen saturation in 2020-09-30 14:00:00 98 /min University of Arterial blood by [facility] nicky Pulse oximetry Branch Body temperature 2020-09-30 13:26:00 37.22 Ruthann Univ ersity of [place] [facility] Respiratory rate 2020-09-30 13:26:00 16 /min Univ ersity of [place] [facility] Body weight 2020-09-30 13:26:00 72.576 kg Universi ty of [place] [facility] BMI 2020-09-30 13:26:00 28.80 kg/m2 Universi ty [facility] [place] [facility] Temperature Oral (F) 2019-01-28 01:16:00 98.6 F [facility] Yonis Systolic (mm Hg) 2019-01-28 01:16:00 Estrada rial [place] Diastolic (mm Hg) 2019-01-28 01:16:00 Mem orial [place] Heart Rate 2019-01-28 01:16:00 [facility] [place] Respitory Rate 2019-01-28 01:16:00 Memori al [place] Systolic (mm Hg) 2019-01-27 20:42:00 Estrada rial Yonis Diastolic (mm Hg) 2019-01-27 20:42:00 Mem orial [place] Heart Rate 2019-01-27 20:42:00 [facility] [place] Respitory Rate 2019-01-27 20:42:00 Memori al [place] Temperature Oral (F) 2019-01-27 20:42:00 98.5 F [facility] Yonis Systolic (mm Hg) 2019-01-27 17:00:00 Estrada rial Yonis Diastolic (mm Hg) 2019-01-27 17:00:00 Mem orial Yon[place] Temperature Oral (F) 2019-01-27 17:00:00 98.5 F Memorial Y[place]is Heart Rate 2019-01-27 17:00:00 [facility] [place] Respitory Rate 2019-01-27 [facility] Height 2019-01-22 14:35:00 157.48 cm [facility] BMI Calculated 2019-01-22 14:35:00 [facility] Weight 2019-01-22 14:35:00 [facility] [place] Weight 2019-01-22 04:34:00 [facility] Procedure Date / Time Performing Clinician Source Performed URINALYSIS 2021-09-10 06:03:00 Neena Bradford [facility] URINE DRUG (IMMUNOASSAY) 2021-09-10 06:03:00 Neena Bradford [facility] nc SCREEN W/O REFLEX XR CHEST 1 VW 2021-09-10 04:57:30 Neena Bradford [facility] CREATINE KINASE 2021-09-10 04:39:00 Neena Bradford [facility] MAGNESIUM 2021-09-10 04:39:00 Neena Bradford [facility] TROPONIN I 2021-09-10 04:39:00 Neena Bradford [facility] COMP. METABOLIC PANEL 2021-09-10 04:39:00 Neena Bradford [facility] ([id number]) Medical [place] CBC WITH DIFF 2021-09-10 04:39:00 Neena Bradford [facility] PROTHROMBIN TIME / INR 2021-09-10 04:39:00 Neena Bradford [facility] ACTIVATED PARTIAL 2021-09-10 04:39:00 Neena Bradford [facility] THRMPLAS [facility] N-TERMINAL PRO-BNP 2021-09-10 04:39:00 Neena Bradford [facility] COVID-19 (ID NOW RAPID 2021-09-10 04:39:00 Neena Bradford [facility] TESTING) Medical Branch TROPONIN I 2021-09-09 21:49:00 [facility] COMP. METABOLIC PANEL 2021-09-09 21[facility]49[facility]00 [id number] Medical Branch LITHIUM 2021-09-09 21:49:00 [facility] CBC WITH DIFF 2021-09-09 21:49:00 [facility] CONSENT/REFUSAL FOR 2021-09-09 19:51:22 Doctor Unassigned, No Un [facility] DIAGNOSIS AND TREATMENT Name Medical Branch URINALYSIS 2020-09-30 13:27:00 [facility] ADC,CLC OR LCC ONLY - 2020-09-30 13:27:00 [facility] INFLUENZA A & B DIRECT Medical B ranch ANTIGEN COVID-19 (ID NOW RAPID 2020-09-30 13:27:00 [facility] TESTING) Medical Branch Encounters Start End Encounter Admission Attending Care Care Encounter Source Date/Time Date/Time Type Type Clinicians Facility Department ID 2021-09-07 Outpatient Humaira-Saraiayo VFP VFP [id number] [facility] 13:23:42 _A_ [id number] Family Practic e 2019-01-22 Inpatient E [facility] MED [id number] [facility] W 04:39:00 2021-09-09 2021-09-10 Emergency Sanchez [facility] [id number] Univers 22:20:00 03:02:00 Neena WALSH 350.1.13.10 i ty of [place] 4.2.7.2.686 [facility] [id number] [address] 2021-09-09 2021-09-10 Emergency [facility] [id number] Univers 22:20:00 03:02:00 NEENA cherrie [facility] 2021-09-09 2021-09-10 Emergency [facility] [id number] Univers 22:20:00 03:02:00 NEENA tubbs [facility] 2021-09-09 2021-09-09 Emergency Julia [facility] [id number] Univers 14:07:00 17:35:00 Luanne WALSH 350.1.13.10 i ty of [place] 4.2.7.2.686 [facility] [id number] [address] 2021-09-09 2021-09-09 Orders Doctor BELKYS [id number] Univers 00:00:00 00:00:00 Only Unassigned, LANA 350.1.13.10 ity of [facility] 4.2.7.2.686 Joe [id number] [address] 2020-09-30 2020-09-30 [facility] [id number] 07:22:00 08:18:00 Chuy [place] 350.1.13.10 [place] 4.2.7.2.686 [place] [id number] 2020-09-30 2020-09-30 Emergency [facility] [id number] Univers 07:22:00 08:18:00 Chuy [place] 350.1.13.10 i ty of [place] 4.2.7.2.686 [facility] [id number] [address] 2020-09-30 2020-09-30 Emergency Lise [facility] ERT [id number] Univers 07:22:00 07:22:00 CHUY tubbs [facility] 2020-04-05 2020-04-05 Outpatient Bernadine Maira [facility] [id number] [facility] 05:44:00 05:44:00 _A_ [id number] Family Practic e 2020-04-05 2020-04-05 Outpatient Humaira-Alekso VFP VFP [id number] [facility] 05:44:00 05:44:00 _A_AH [id number] Family Practic e 2020-04-05 2020-04-05 Outpatient Humaira-Alekso VFP VFP [id number] [facility] 05:44:00 05:44:00 _A_AH [id number] Family Practic e 2020-03-04 2020-03-14 Inpatient 3 Ronni Eldridge [facility] [id number] 15:38:00 15:25:00 Chente [facility] 2019-12-13 2019-12-13 Outpatient Humaira-Alekso VFP VFP [id number] [facility] 07:22:00 07:22:00 _A_AH [id number] Family Practic e 2019-01-22 2019-01-28 Inpatient [facility] [id number] Memoria 04:33:00 04:40:00 martin Somers 00 l [facility] 2018-02-21 2018-02-20 Inpatient E [facility] [id number] 14:48:00 13:18:00 [facility] Results Test Description Test Time Test Comments Results Result Comments Source TROPONIN I 2021-09-10 05:26:53 Test Item Value Reference Range Interpretation Comme nts TROPONIN I (test code = 0.003 ng/mL See_Comment [Au tomated message] The [id number]) system which ge nerated this result tra [...] biotin. Lab Interpretation Normal (test code = 42749-2) [facility] [id number] 05:24:16 Test Item Value Reference Range Interpretation Comments NT-proBNP (test code 35 pg/mL See_Comment [Autom ated = 9236223482) message] The system which generated this result transmitted reference range : <=125. The reference range was not used to interpret this result as normal/abnormal . PERRY (test code = PERRY) Biotin has been reported to cause a negative bias, interpret results relative to patient's use of biotin. Lab Interpretation Normal (test code = 13026-6) [facility]2021-11-17 05:16:51 Test Item Value Reference Range Interpretation Comments MAGNESIUM (test code = 9752596347) 1.8 mg/dL 1.7-2.4 Lab Interpretation (test code = Normal 75973-1) [facility] METABOLIC PANEL ([id number])2021-09-10 05:16:31 Test Item Value Reference Range Interpretation Comments NA (test code = 139 mmol/L 135-145 9091309822) K (test code = 4.0 mmol/L 3.5-5.0 9869971154) CL (test code = 108 mmol/L 98-108 5315625511) CO2 TOTAL (test code 25 mmol/L 23-31 = 6851144533) AGAP (test code = 2-16 0476699150) BUN (test code = 14 mg/dL 7-23 9891204441) GLUCOSE (test code = 88 mg/dL 70-110 7595786282) CREATININE (test code 0.89 mg/dL 0.50-1.04 = 8579956544) TOTAL BILI (test code 0.5 mg/dL 0.1-1.1 = 8925366232) CALCIUM (test code = 10.3 mg/dL 8.6-10.6 6880750277) T PROTEIN (test code 6.9 g/dL 6.3-8.2 = 7694314606) ALBUMIN (test code = 4.3 g/dL 3.5-5.0 8121933923) ALK PHOS (test code = 72 U/L 34-122 2773073584) ALTv (test code = 17 U/L 5-35 1742-6) AST(SGOT) (test code 29 U/L 13-40 = 4755477516) eGFR (test code = mL/min/1.73m2 5837640641) PERRY (test code = PERRY) Association of [...] or urine or abnormalities in imaging tests). [facility] CenterCREATINE [id number] 05:16:16 Test Item Value Reference Range Interpretation Comments CK (test code = 1372538544) 267 U/L 33-194 H Lab Interpretation (test code = Abnormal 67494-4) [facility] CenterACTIV[facility] PARTIAL THRMPLAS [id number] 05:05:32 Test Item Value Reference Range Interpretation Comments APTT Patient (test See_Comment [Automat ed code = 3173-2) message] The system which generated this result transmitted reference range : 23 - 38 Seconds . The reference range was not used to interpr et this result as normal/abnormal . PERRY (test code = PERRY) The [facility] patient population mean normal value for aPTT is 30 seconds. Lab Interpretation Normal (test code = 94020-0) [facility] CenterPROTHROMBIN TIME / [id number] 05:03:30 Test Item Value Reference Range Interpretation [...] tions. Lab Interpretation (test Normal code = 25713-0) [facility] CenterCB WITH [id number] 04:57:13 Test Item Value Reference Range Interpretation Comments WBC (test code = See_Comment [Automated 2890-2) message] The sy stem which generated this result transmitted reference range : 4.30 - 11.10 10*3/?L. The reference range was not used to interpret this result as normal/abnormal . RBC (test code = See_Comment [Automated 699-8) message] The sy stem which generated this [...] RDW-SD (test code = 41.2 fL 39.0-49.9 54965-1) RDW-CV (test code = 13.0 % 12.0-15.5 788-0) PLT (test code = See_Comment H [Automated 117-3) message] The sy stem which generated this result transmitted reference range : 166 - 358 10*3/ ?L. The reference r katie was not used to interpret this result as normal/abnormal . MPV (test code = 9.6 fL 9.5-12.9 10785-3) NRBC/100 WBC (test See_Comment [Automat ed code = 6141446399) message] The system which generated this result transmitted reference range : 0.0 - 10.0 /100 WBCs. The refer ence range was not u sed to interpret th is result as normal/abnormal . NRBC x10^3 (test code <0.01 See_Comment [Auto mated = 0091898594) message] The s ystem which generated this result transmitted reference range : 10*3/?L. The reference range was not used to interpret this result as normal/abnormal . GRAN MAT (NEUT) % 61.9 % (test code = 770-8) IMM GRAN % (test code 0.30 % = 7900459101) LYMPH % (test code = 26.0 % 736-9) MONO % (test code = 9.5 % 5905-5) EOS % (test code = 1.6 % 713-8) BASO % (test code = 0.7 % 706-2) GRAN MAT x10^3(ANC) 5.91 10*3/uL 1.88-7.09 (test code = 0109006338) IMM GRAN x10^3 (test 0.03 10*3/uL 0.00-0.06 code = 9099020745) LYMPH x10^3 (test code 2.48 10*3/uL 1.32-3.29 = 731-0) MONO x10^3 (test code 0.91 10*3/uL 0.33-0.92 = 742-7) EOS x10^3 (test code = 0.15 10*3/uL 0.03-0.39 711-2) BASO x10^3 (test code 0.07 10*3/uL 0.01-0.07 = 704-7) Lab Interpretation Abnormal (test code = 60830-8) [facility] CenterJESSICA [id number] 22:24:55 Test Item Value Reference Interpretation Comments Range TROPONIN I (test 0.002 ng/mL See_Comment [Automated code = 0499486241) message] The system which generated this result transmitted reference range : <=0.034. The reference range was not used to interpret this result as normal/abnormal . PRERY (test code = Reference (Normal) PERRY) Range [...] biotin. Lab Interpretation Normal (test code = 17318-8) [facility] 22[facility]24:34 Test Item Value Reference Range Interpretation Comments Bone Gap (test code = <0.2 0.6-1.2 L 7171281564) PERRY (test code = PERRY) Toxic Range: ? Greater than 1.2 mmol/L Lab Interpretation (test Abnormal code = 18088-4) [facility] METABOLIC PANEL (71050)2021-09-09 22:13:54 Test Item Value Reference Range Interpretation Comments NA (test code = 139 mmol/L 135-145 9243510489) K (test code = 4.0 mmol/L 3.5-5.0 0870112402) CL (test code = 105 mmol/L 98-108 7438834941) CO2 TOTAL (test code 26 mmol/L 23-31 = 9381896482) AGAP (test code = 2-16 2315395221) BUN (test code = 11 mg/dL 7-23 6080648403) GLUCOSE (test code = 109 mg/dL 70-110 1308299683) CREATININE (test code 0.71 mg/dL 0.50-1.04 = 5698443914) TOTAL BILI (test code 0.6 mg/dL 0.1-1.1 = 9483653791) CALCIUM (test code = 10.4 mg/dL 8.6-10.6 5615942103) T PROTEIN (test code 7.6 g/dL 6.3-8.2 = 3031980511) ALBUMIN (test code = 4.7 g/dL 3.5-5.0 2833907167) ALK PHOS (test code = 78 U/L 34-122 1090448591) ALTv (test code = 19 U/L 5-35 1742-6) AST(SGOT) (test code 28 U/L 13-40 = 1175074312) eGFR (test code = mL/min/1.73m2 6567395125) PERRY (test code = PERRY) Association of [...] or urine or abnormalities in imaging tests). [facility] WITH OMET2220-16-29 22:03:32 Test Item Value Reference Range Interpretation Comments WBC (test code = See_Comment [Automated 2890-2) message] The sy stem which generated this [...] RDW-SD (test code = 40.2 fL 39.0-49.9 89254-1) RDW-CV (test code = 12.9 % 12.0-15.5 788-0) PLT (test code = See_Comment H [Automated 777-3) message] The sy stem which generated this result transmitted reference range : 166 - 358 10*3/ ?L. The reference r katie was not used to interpret this result as normal/abnormal . MPV (test code = 9.4 fL 9.5-12.9 L 42152-3) NRBC/100 WBC (test See_Comment [Automat ed code = 6903611955) message] The system which generated this result transmitted reference range : 0.0 - 10.0 /100 WBCs. The refer ence range was not u sed to interpret th is result as normal/abnormal . NRBC x10^3 (test code <0.01 See_Comment [Auto mated = 8583849059) message] The s ystem which generated this result transmitted reference range : 10*3/?L. The reference range was not used to interpret this result as normal/abnormal . GRAN MAT (NEUT) % 67.1 % (test code = 770-8) IMM GRAN % (test code 1.00 % = 4800922615) LYMPH % (test code = 21.4 % 736-9) MONO % (test code = 7.9 % 5905-5) EOS % (test code = 1.8 % 713-8) BASO % (test code = 0.8 % 706-2) GRAN MAT x10^3(ANC) 7.35 10*3/uL 1.88-7.09 H (test code = 7205787446) IMM GRAN x10^3 (test 0.11 10*3/uL 0.00-0.06 H code = 4632524029) LYMPH x10^3 (test code 2.34 10*3/uL 1.32-3.29 = 731-0) MONO x10^3 (test code 0.86 10*3/uL 0.33-0.92 = 742-7) EOS x10^3 (test code = 0.20 10*3/uL 0.03-0.39 711-2) BASO x10^3 (test code 0.09 10*3/uL 0.01-0.07 H = 704-7) Lab Interpretation Abnormal (test code = 99223-0) [facility] OR [facility] ONLY - INFLUENZA A & B DIRECT SHCELBN9946-03-64 14:04:00 Test Item Value Reference Range Interpretation Comments Influenza A (test code = 34046-4) Negative Negative Influenza B (test code = 99361-4) Negative Negative Lab Interpretation (test code = Normal 84535-5) [facility] CenterCOVID-19 (ID NOW RAPID TESTING)2020-09-30 14:03:00 Test Item Value Reference Range Interpretation Comments SARS-CoV-2 Rapid ID NOW Not Detected Not Detected (test code = 14444-3) PERRY (test code = PERRY) ID NOW COVID-19 Assay is an isothermal nucleic acid amplification test intended for the qualitative detection of nucleic acid from SARS-CoV-2 viral RNA in nasopharyngeal (SPICE GRINDER) specimens. It is used under Emergency Use [...] indicated. Lab Interpretation Normal (test code = 92994-7) [facility] CenterURINALYSIS2020-12-07 13:55:00 Test Item Value Reference Range Interpretation Comments APPEARANCE (test code = Hazy Clear A 6678933424) COLOR (test code = Yellow Yellow 4535515600) PH (test code = 4.8-8.0 7479308958) SP GRAVITY (test code = 1.003-1.030 7994327214) GLU U QUAL (test code = Normal Normal 7596577072) BLOOD (test code = Negative Negative 9856862351) KETONES (test code = 5 mg/dL Negative A 7142311234) PROTEIN (test code = Negative Negative 2887-8) UROBILIN (test code = 2.0 mg/dL Normal A 0024745568) BILIRUBIN (test code = Negative Negative 0653772168) NITRITE (test code = Negative Negative 2848964427) LEUK ROZINA (test code = 25/uL Negative A 2461411312) RBC/HPF (test code = See_Comment [Autom ated message] 6207690229) The system Givey generated this result transmit ngozi reference range : 0 - 3 HPF. The refe rence range was not u sed to interpret th is result as normal/abnormal . WBC/HPF (test code = See_Comment [Autom ated message] 0643560451) The system Givey generated this result transmit ngozi reference range : 0 - 5 HPF. The refe rence range was not u sed to interpret th is result as normal/abnormal . BACTERIA (test code = Few Negative A 7054745969) MUCOUS (test code = Slight Negative LPF A 7702950664) SQ EPITH (test code = HPF 6653683928) Lab Interpretation (test Abnormal code = 64475-1) [facility] CenterRPR Jujiqtbpsfr1330-00-36 16:42:24 Test Item Value Reference Range Interpretation [...] = 10-24-2020 N Expiration Dt) Thyroid Stimulating Zhzdtfk7110-12-62 08:35:16 Test Item Value Reference Range Interpretation Comments TSH (test code = TSH) 1.170 mIU/mL 0.270-4.200 Lipid Ajeua8781-63-51 08:21:19 Test Item Value Reference Range Interpretation Comments Cholesterol Total 254 mg/dL 0-200 H RISK OF HE ART (test code = DISEASEPublishe d by Cholesterol Total) [place] [employer] Cathie lyte Optimal Borderl ine [...] calculation is LDL/HDL Ratio=L DL Calc/HDL Chol ZFKBYWYOWYND4625-79-85 08:24:008.6[facility] ZmzacnqVOHTXNIRCVIF3591-94-92 08:24:53673Iievhqsl UzgxkehHMLCVBLUHRIY8148-90-71 08:24:0027[facility] JDMFYZQNZCIT8072-51-91 08:24:35375Godtwglw WcduilaZOSNYUQDTNNO4574-48-20 08:24:003.6[facility] VkyufqzLNNPKCSFIGWF6250-19-77 08:24:000.70[facility] XCHEWAOVHFYM3111-41-77 08:24:008.4[facility] ApvetlcVVZFDEUREZSH1055-69-03 08:24:58631Evcwqooj NyvidxvZJCCEVUTNSMZ4214-71-38 08:24:0086[facility] CTVQIQNPMDGM2452-83-65 08:24:006[facility] IgcfmqyLPURTPCVBM3531-04-72 08:24:00 11.6[facility] SuuorttMVNRNWNGEE4800-35-76 08:24:003.78[facility]annHEMATOLOGY 2019-01-26 08:24:0013.3[facility] QpmmujtZYFVUAQGCH6799-16-07 08:24:0034.0[facility] YhfpzmhPDUZMIEONN1768-48-86 08:24:006.3[facility] HldycugHIEAMEWLIE4827-69-68 08:24:00 Test Item Value Reference Range Interpretation Comments MCH (test code = MCH) 30.7 pg 27.0-31.0 [facility] XnoemkdNYWROOGEXY3677-31-48 08:24:0090.3[facility] HermannHEMATOLOGY 2019-01-26 08:24:0034.2[facility] JuplvxaHHEQPMXRYM7086-67-66 08:24:92376Abzovtwn XqujhibGITNXCPKXW5190-63-04 08:24:007.5[facility] RqvommqEYQNZHICMLQE2456-70-56 08:24:008.[facility] GlxldftMPRNOTCIFIRC4636-84-58 08:24:48884Dkpexrac Y[facility] VPHGPUAAQUBR4868-25-63 08:24:0027[facility] McczjmcAEBUKQEAACUZ0595-74-17 08:24:00 139[facility] NkzalwkMHYYLWXOHEUU6725-68-98 08:24:003.6[facility] FFGYOBXSNACD6753-08-74 08:24:000.70[facility] NzoxkkoNONCJCSUSFWI1327-42-26 08:24:008.4[facility] KichjbwQVGZQUWQLLVP9855-69-57 08:24:09119Kktapwgi [place] ANIABKNLFMEY0168-19-33 08:24:0086[facility] RkwoipmGIGXHIULUSUG5208-28-94 08:24:00 6[facility] EfnlmkfETGKWCHROW4617-18-83 08:24:0011.6[facility] HermannHEMATOLOGY 2019-01-26 08:24:003.78[facility] IaonpueLJUYEURXFT0158-63-83 08:24:0013.3[facility] LaqszquTHUWMVPXDV8410-27-36 08:24:0034.0[facility] BotqbrbZRDOKUMITV7185-87-28 08:24:006.3[facility] XfjlqaqKYVJUEMMVQ4832-24-38 08:24:00 Test Item Value Reference Range Interpretation Comments MCH (test code = MCH) 30.7 pg 27.0-31.0 [facility] WwhmozyLWJJDAJWBZ4298-86-68 08:24:0090.3[facility] HermannHEMATOLOGY 2019-01-26 08:24:0034.2[facility] YdentvxIXWFWHZXJF0773-58-43 08:24:09837Wwrvayfr CcnhsseLIJHFOVBAZ9236-42-65 08:24:007.5[facility] HermannCHEM AMTBT8094-17-52 09:14:53884Gjlrnidk HermannCHEM DRZIM2443-85-60 09:14:008.5[facility]annCHEM NUDBB3984-71-70 09:14:0013.3[facility]annCHEM SVVEG7493-57-61 09:14:0024 [facility]annCHEM BOLHX6008-00-26 09:14:32768Hlolapkd HermannCHEM PANEL 2019-01-25 09:14:0081[facility] HermannCHEM XYSPJ1297-79-22 09:14:002[facility]annCHEM AMIMW8850-76-19 09:14:003.3[facility]annCHEM UMGBS1560-58-49 09:14:000.60[facility]annCHEM CLHPN5134-60-49 09:14:56821Qojcnrmw HermannCHEM KRPIV6566-09-51 09:14:51187Unsshigt HermannCHEM FMQSZ5106-84-62 09:14:008.5 [facility]annCHEM TCLHI2034-00-90 09:14:0013.3[facility]annCHEM PANEL 2019-01-25 09:14:0024[facility] HermannCHEM CREYG7460-17-85 09:14:41961Imhpfjyv HermannCHEM GHZDL3176-28-13 09:14:0081[facility]annCHEM IMFCG3537-97-17 09:14:002[facility]annCHEM LPUFB4075-20-71 09:14:003.3[facility]annCHEM VOISC8807-10-54 09:14:000.60[facility]annCHEM NEWFP2654-71-74 09:14:29847 [facility]annMOLECULAR UKEAJSOPFF1110-16-75 16:22:00Negative (01/23/19 11:22 AM)[facility]annMOLECULAR WPHNTZNAJF1943-95-45 16:22:00Negative (01/23/19 11:22 AM)[facility]annCHEM BMKHX3501-94-11 15:42:002.76[facility]annCHEM PANEL 2019-01-23 15:42:002.76[facility]annCHEM GCOSM5712-43-05 12:32:000.9[facility]annCHEM ERAMF0868-68-05 12:32:000.9[facility]annCHEM YWDGA6083-51-96 10:50:002.0[facility]annCHEM LYUJX8691-00-39 10:50:58137Grqpflau HermannCHEM OCCEI4551-33-97 10:50:0023[facility]annCHEM JMVIU8002-85-41 10:50:90321 [facility]annCHEM KPZQJ2718-51-35 10:50:003.1[facility]annCHEM PANEL 2019-01-23 10:50:30756Yhbiszra HermannCHEM NPYTM7616-76-37 10:50:005[facility]annCHEM MUJSH0637-22-64 10:50:000.50[facility]annCHEM KEIGV1994-31-29 10:50:007.8[facility]annCHEM PNDFJ6327-65-41 10:50:0083[facility]annCHEM IMGXM9801-79-24 10:50:0010.1[facility] XptodkaURXSWOHILR5917-80-73 10:50:000.2 [facility] HjkiriyNXXYVXZUHC8106-77-85 10:50:000.8[facility] HermannHEMATOLOGY 2019-01-23 10:50:005.5[facility] EazcmeqJZYQTWQFPP1967-00-50 10:50:002.2[facility] PkaacplWUKVTIBXOE1963-31-91 10:50:000.1[facility] OmsqjnqGRMFUJLSXM2524-59-82 10:50:0063.6[facility] WdcagmnWPKQDWKYXO8781-40-84 10:50:008.9[facility] ABAWHXGYOR1253-37-82 10:50:002.3[facility] YoozsgxTQKAISUCGZ9173-24-34 10:50:00 Normal (01/23/19 5:50 AM)[facility] WzzpoiiVEXQEXLBQP0683-47-61 10:50:00Normal (01/23/19 5:50 AM)[facility] EsogkhlVLCVAKJKBG1099-77-53 10:50:0025.1[facility] WozbikxBLYLUAVOAE4248-36-81 10:50:0013.1[facility] UveaxmbJAOBNCHZBV3543-60-31 10:50:07492Nwqhwfmw HybxsdfPHVWPJCOOB7427-82-88 10:50:007.7[facility] POZPBPFQLB1826-02-97 10:50:008.6[facility] OtgfrmzKSTMIRYYNM7565-56-62 10:50:00 10.0[facility] WphlxhdPAIZDNLVRC0199-74-61 10:50:0034.6[facility] HermannHEMATOLOGY 2019-01-23 10:50:0028.7[facility] MfzsxnhPNHACLTIIZ4908-87-37 10:50:0087.8[facility] UecrzlwMYMSFGMBUI1996-65-43 10:50:00 Test Item Value Reference Range Interpretation Comments MCH (test code = MCH) 30.4 pg 27.0-31.0 [facility] BnlvpgjKVWCJWYPRT1272-06-44 10:50:003.27[facility] HermannHEMATOLOGY 2019-01-23 10:50:92699Uptooqob XmkqubbTKLWIYZSUM8370-33-46 10:50:007.7[facility] CjuytlhUUEVXPCXME0442-48-86 10:50:008.6[facility] TknrskxZGVYTAPTSH1638-22-81 10:50:0010.0[facility] JhazrzdPDDTAJTIVU1053-49-27 10:50:0034.6[facility] WDOLEEAMQN0519-94-64 10:50:0028.7[facility] OkjyipqADRISWWAGP7050-63-83 10:50:00 87.8[facility] RoqdapbSHNQWTHUTZ2035-49-90 10:50:00 Test Item Value Reference Range Interpretation Comments MCH (test code = MCH) 30.4 pg 27.0-31.0 [facility] SmefhqmNOMEDNAILD4448-60-72 10:50:003.27[facility] HermannCHEM PANEL 2019-01-23 10:50:002.0[facility] HermannCHEM SANOC0758-85-68 10:50:94184Epcfgdub HermannCHEM YSYFC8282-67-73 10:50:0023[facility]annCHEM VDYRM5104-89-78 10:50:62315Iourvokd [facility]annCHEM DNPQI0202-84-68 10:50:003.1[facility]annCHEM XPPUP3654-34-64 10:50:21938Nrkzlxpi HermannCHEM ABHAI6907-12-48 10:50:005 [facility]annCHEM PPOEI0339-51-76 10:50:000.50[facility]annCHEM PANEL 2019-01-23 10:50:007.8[facility]annCHEM VJTCD9544-42-26 10:50:0083[facility]annCHEM DFNSQ7297-66-40 10:50:0010.1[facility] GuylpznJUENDWJOYX6458-11-61 10:50:000.2[facility] NbkponiIYIMIJMZFM6139-95-36 10:50:000.8[facility] QISTCJKTWK2313-31-06 10:50:005.5[facility] YczepdqCORKQCZHJW3535-54-15 10:50:002.2 [facility] KlmocjjTNNSLGPLMH0271-04-03 10:50:000.1[facility] HermannHEMATOLOGY 2019-01-23 10:50:0063.6[facility] LrzbawwILZKWZMSFX8037-36-52 10:50:008.9[facility] QefaurcXGYAQUEXGZ9821-56-98 10:50:002.3[facility] DpxsxzwIWAMLKHIXR3254-93-55 10:50:00Normal (01/23/19 5:50 AM)[facility] EyvscklPWFMACWCAQ6442-56-51 10:50:00 Normal (01/23/19 5:50 AM)[facility] GizqljlAJOIGYGSFX6005-29-13 10:50:0025.1[facility] LluuufdYLBWIXGBNV5384-31-03 10:50:0013.1[facility] HermannCHEM DMYET6721-38-76 11:32:002.4[facility]annCHEM TTMTS2753-96-86 11:32:002.4[facility] HermannCHEM IJXTA4888-86-34 09:04:003.0[facility]annCHEM YJJRG3407-42-99 09:04:003.0 [facility]UR[facility] AND RXYCY8881-70-98 07:14:00 Test Item Value Reference Range Interpretation Comments UA Spec Grav (test code = UA Spec 1.014 1 Grav) [facility] PFSJE9762-26-46 07:14:00 Test Item Value Reference Range Interpretation Comments UA pH (test code = UA pH) 6.0 1 5.0-8.0 [facility] RPODI1257-73-30 07:14:00Negative (01/22/19 2:14 AM) [facility] UHUIO4789-05-84 07:14:00Negative *NA*(01/22/19 2:14 AM) [facility] NFAVS3963-48-45 07:14:00Negative *NA*(01/22/19 2:14 AM) [facility] OXJDV9292-73-10 07:14:00Negative *NA*(01/22/19 2:14 AM) [facility] EQTIC6033-27-30 07:14:00Negative (01/22/19 2:14 AM) [facility] KXGAM4172-00-24 07:14:00Negative (01/22/19 2:14 AM) [facility] XWVMZ8859-37-56 07:14:00Negative (01/22/19 2:14 AM) [facility] GNCTX3773-03-43 07:14:00<1[facility] AUGDX1317-35-42 07:14:0025[facility] SBTEI7120-35-93 07:14:002 [facility] SISTM5140-24-80 07:14:00Light Yellow *NA*(01/22/19 2:14 AM)[facility] KXXHO1329-94-05 07:14:00Clear (01/22/19 2:14 AM) [facility] ZRKPG5746-00-73 07:14:00 Test Item Value Reference Range Interpretation Comments UA Spec Grav (test code = UA Spec 1.014 1 Grav) [facility] JGKNZ3252-72-38 07:14:00 Test Item Value Reference Range Interpretation Comments UA pH (test code = UA pH) 6.0 1 5.0-8.0 [facility] DWVVW9375-20-96 07:14:00Negative (01/22/19 2:14 AM) [facility] CYQGB3797-85-47 07:14:00Negative *NA*(01/22/19 2:14 AM) [facility] YSMTU7667-23-59 07:14:00Negative *NA*(01/22/19 2:14 AM) [facility] KGYYP0608-99-23 07:14:00Negative *NA*(01/22/19 2:14 AM) [facility] YDERS4354-79-07 07:14:00Negative (01/22/19 2:14 AM) [facility] ZOPTS8949-18-94 07:14:00Negative (01/22/19 2:14 AM) [facility] KLWHD0303-50-56 07:14:00Negative (01/22/19 2:14 AM) [facility] ZOWLO8702-59-73 07:14:00<1[facility] OCUVX2633-34-54 07:14:0025[facility] BYUCM1776-60-35 07:14:002 [facility] HYBYF7486-62-50 07:14:00Light Yellow *NA*(01/22/19 2:14 AM)[facility] YCHFK8434-63-28 07:14:00Clear (01/22/19 2:14 AM) [facility] TaxccclIAWME3813-73-74 05:16:000.90[facility] MwofqwwKRSJD1662-20-32 05:16:000.90[facility] ChbzvalTOILTPJMER3845-04-21 05:01:008.6[facility] FGLVNWFWVJ7061-97-75 05:01:000.6[facility] OfwbmbrBXAPIPGKNN7038-96-52 05:01:00 86.5[facility] OzrpxozVJUNFWCZZR8729-61-20 05:01:005.7[facility]annHEMATOLOGY 2019-01-22 05:01:006.9[facility] UqtfwbjPRCRRQQLRL8999-13-02 05:01:009.9[facility] UqzfubjJQNRIXXBDT6704-69-14 05:01:0032.8[facility] LajrmtmHPTMIFARCS9631-55-23 05:01:0013.6[facility] EktugquXSGKGFQPZO8537-80-12 05:01:19050Fatfrafq [place] YLOUDZFPEJ7536-56-29 05:01:007.3[facility] TkjfnchCUJNJRDNPN3293-94-24 05:01:00 14.0[facility] VgaxgttGHGIIMIQAB0008-78-35 05:01:004.85[facility]annHEMATOLOGY 2019-01-22 05:01:0042.7[facility] StkrtfsLPGWSOPTZT2629-38-67 05:01:00 Test Item Value Reference Range Interpretation Comments MCH (test code = MCH) 29.0 pg 27.0-31.0 [facility] SkciteeJMLEZBPTVZ0917-84-33 05:01:0088.2[facility]annHEMATOLOGY 2019-01-22 05:01:00 Test Item Value Reference Range Interpretation Comments INR (test code = INR) 0.96 1 0.85-1.17 [facility] RqbuiakBLJDBKUJPH2694-32-92 05:01:00 Test Item Value Reference Range Interpretation Comments PT (test code = PT) 12.6 s 12.0-14.7 [facility]qrzjcmDGCCBNUKBQ2560-53-97 05:01:00 Test Item Value Reference Range Interpretation Comments PTT (test code = PTT) 25.9 s 22.9-35.8 [facility] HermannBLOOD BANK YTJOGZK7284-88-82 05:01:00Negative (01/22/19 12:01 AM) [facility]annCARDIAC OCTGTLK8192-97-23 05:01:00<0.02[facility] CARDIAC JYPWIAA9635-88-91 05:01:0049[facility] HermannCHEM TZVKE1881-90-80 05:01:000.6[facility] HermannCHEM SQVNR3374-67-79 05:01:41423Crmorqky HermannCHEM ACWMI3065-90-50 05:01:004.0[facility] HermannCHEM HFYXW3224-54-03 05:01:0017 [facility]annCHEM AJHYP2211-97-35 05:01:0025[facility] HermannCHEM PANEL 2019-01-22 05:01:008.1[facility] HermannCHEM HAUVO4810-37-44 05:01:00 Test Item Value Reference Range Interpretation Comments B/C Ratio (test code = B/C Ratio) 20 1 6-25 [facility]annCHEM YIOKE0305-04-31 05:01:00 Test Item Value Reference Range Interpretation Comments A/G Ratio (test code = A/G Ratio) 1.0 1 0.7-1.6 [facility]annCHEM ZRAPE9445-17-35 05:01:004.1[facility]annCHEM PANEL 2019-01-22 05:01:006.90[facility] WffwofvJWBLEIUFSUFYH4516-37-07 05:01:00Negative *NA*(01/22/19 12:01 AM)[facility] DayfxoaWEBKLNFVKU4081-99-31 05:01:000.1[facility] NumvlrhMBECMWFWZC4524-08-38 05:01:000.7[facility] IatswreYWVZDCEGRB2743-43-54 05:01:000.0[facility] DivtjtwCVUGBJRPQR3953-95-97 05:01:000.0[facility] MVMMLNXRHZ3445-26-67 05:01:000.9[facility] BtshqtxTMZGHNUPUW1310-61-85 05:01:008.6 [facility] KsbzbmjFEHMRQTTRO9758-99-20 05:01:000.6[facility]annHEMATOLOGY 2019-01-22 05:01:0086.5[facility] TjuunkeKMXZTKKRLJ4762-23-51 05:01:005.7[facility] AxzdkruGNWYCRHAGN4997-38-79 05:01:006.9[facility] SkjukjgHLBFEJDWDJ5050-33-30 05:01:009.9[facility] YjpqqhxBTIFVQSUOJ2333-95-64 05:01:0032.8[facility] HNWQQFZRCT2625-31-92 05:01:0013.6[facility] FgutigrXJXQVVOVJJ2766-63-39 05:01:00 443[facility] EigswfeWAGPMEEPVE9829-23-92 05:01:007.3[facility]annHEMATOLOGY 2019-01-22 05:01:0014.0[facility] PnmlyvmVLTZSBRQUV1132-59-09 05:01:004.85[facility] UkdszblGKQSXFWVNS4778-34-54 05:01:0042.7[facility] BxwlryaQEMWGCXMYP1973-54-52 05:01:00 Test Item Value Reference Range Interpretation Comments MCH (test code = MCH) 29.0 pg 27.0-31.0 [facility] KmjpqzrGPWVREWOQX9879-89-57 05:01:0088.2[facility] HermannHEMATOLOGY 2019-01-22 05:01:00 Test Item Value Reference Range Interpretation Comments INR (test code = INR) 0.96 1 0.85-1.17 [facility] TaiupzlSOZTWJTNAS5050-09-56 05:01:00 Test Item Value Reference Range Interpretation Comments PT (test code = PT) 12.6 s 12.0-14.7 [facility] ZwcyqfnJDXLBKDNRS1739-47-43 05:01:00 Test Item Value Reference Range Interpretation Comments PTT (test code = PTT) 25.9 s 22.9-35.8 [facility] NQMKVOE0888-60-72 05:01:00Negative (01/22/19 12:01 AM) [facility]CARD[facility] PVYYZGS5675-35-40 05:01:00<0.02[facility] CARDIAC [id number] 05:01:0049[facility] [id number] 05:01:000.6[facility]annCHE[facility] [id number] 05:01:02123Zpynoyqm HermannCHEM [id number] 05:01:004.0[facility]annCHE[facility] [id number] 05:01:0017 [facility] [id number] 05:01:0025[facility]annCHE[facility] PANEL 2019-01-22 05:01:008.1[facility] [id number] 05:01:00 Test Item Value Reference Range Interpretation Comments B/C Ratio (test code = B/C Ratio) 20 1 6-25 [facility] HermannCHEM [id number] 05:01:00 Test Item Value Reference Range Interpretation Comments A/G Ratio (test code = A/G Ratio) 1.0 1 0.7-1.6 [facility] HermannCHEM [id number] 05:01:004.1[facility]annCHEM PANEL 2019-01-22 05:01:006.90[facility] [id number] 05:01:00Negative *NA*(01/22/19 12:01 AM)[facility] [id number] 05:01:000.1[facility] [id number] 05:01:000.7[facility] JtahobaQHHUFFNHFD0076-98-25 05:01:000.0[facility] TcovpzfSZVICNNOLF6696-23-32 05:01:000.0[facility] [id number] 05:01:000.9[facility] [id number] 14:36:00 Test Item Value Reference Range Interpretation [...] 0.00-0.01 N code = ETOHU) Comprehensive Metabolic [id number] 14:36:00 Test Item Value Reference Range Interpretation [...] validated by e MDRD study and nyasia d be interpretedwith caution.eGFR Re sult Interpretation: eGFR > or = 60 is in t he Normal RangeeGF R < 60 may mean kidney diseaseeGFR < 1 5 may mean kidney failureRange s recommended by the [employer] Foundation,http ://nkd ep.nih.gov Urinalysis [id number] 14:32:00 Test Item Value Reference Range Interpretation Comments Color (test code = COLOR) Yellow Yellow,Straw,Pl N yellow Clarity (test code = Clear Clear N CLAR) Specific Isabella (test 1.024 1.001-1.035 N code = SPGR) [...] code = Few /HPF BACT) CBC with Bedprnoiybcx4374-01-40 14:21:00 Test Item Value Reference Range Interpretation [...] code = ALYMPH) 3.0 K/cumm 0.5-4.6 N [place] Abs (test code = AMONO) 0.5 K/cumm 0.0-1.2 N Eos Abs (test code = AEOS) 0.19 K/cumm 0.00-0.74 N Baso Abs (test code = ABASO) 0.1 K/cumm 0.00-0.21 N
--- NOTE | 2021-09-24 07:39 | ER ---
Nurse's Notes [facility] Name: Tiffany Quinn Age: 51 yrs Sex: Female : 1970 Arrival Date: 09/24/2021 Time: 06:49 Bed 14 Private MD: Diagnosis: Drug Abuse Presentation: 09/24 07:10 Chief complaint: Patient states: she wants to check her breathing because she feels ap3 like her lungs are "too inflated". Patient reports last Methamphetamine use was last night, approx $10. Coronavirus screen: At this time, the client does not indicate any symptoms associated with coronavirus-19. Ebola Screen: No symptoms or risks identified at this time. Initial Sepsis Screen: Does the patient meet any 2 criteria? No. Patient's initial sepsis screen is negative. Does the patient have a suspected source of infection? No. Patient's initial sepsis screen is negative. Risk Assessment: Do you want to hurt yourself or someone else? Patient reports no desire to harm self or others. Onset of symptoms was September 24, 2021. 07:10 Method Of Arrival: Ambulatory ap3 07:10 Acuity: MANUEL 5 ap3 Triage Assessment: 07:13 General: Appears in no apparent distress. comfortable, Behavior is calm, cooperative, ap3 appropriate for age. Respiratory: the patient has mild shortness of breath. Respiratory: Reports her lungs feel "too inflated" Onset: The symptoms/episode began/occurred gradually. HANDS HANGER: 07:14 LMP N/A - Post-menopause ap3 Historical: - Allergies: 07:11 Pepcid; ap3 07:11 Toradol; ap3 - PMHx: 07:11 ADD; Anxiety; Bipolar disorder; ap3 - Immunization history:: Adult Immunizations unknown. - Social history:: Smoking status: Patient reports the use of cigarette tobacco products, smokes one-half pack cigarettes per day, Patient uses street drugs, Methamphetamine (Meth). Screenin:12 Abuse screen: Denies threats or abuse. Nutritional screening: No deficits noted. ap3 Tuberculosis screening: No symptoms or risk factors identified. Fall Risk None identified. Assessment: 07:12 General: Appears in no apparent distress. comfortable, Behavior is cooperative, ap3 restless. Pain: Denies pain. Neuro: Level of Consciousness is awake, alert, obeys commands, Oriented to person, place, time, situation. Respiratory: Airway is patent Respiratory effort is even, unlabored, Respiratory pattern is regular, symmetrical. 07:20 Cardiovascular: Rhythm is sinus tachycardia. Respiratory: Breath sounds are clear ap3 bilaterally. Vital Signs: 07:19 BP 137 / 106; Pulse 101; Resp 18; Temp 97.8(TE); Pulse Ox 99% on R/A; Weight 79.38 kg; ap3 Height 5 ft. 5 in. (165.10 cm); 07:19 Body Mass Index 29.12 (79.38 kg, 165.10 cm) ap3 ED Course: 06:49 Patient arrived in ED. as 06:50 Andrea Angel MD is Private Physician. as 06:50 Dayna Dominguez DO is Private Physician. as 07:07 Bernard Rodriguez PA is PHCP. [facility] 07:07 Manuel Ward MD is Attending Physician. [facility] 07:10 Shawna Lim, RN is Primary Nurse. ap3 07:11 Triage completed. ap3 07:13 Arm band placed on right wrist. ap3 07:13 Patient has correct armband on for positive identification. Bed in low position. Call ap3 light in reach. Side rails up X 1. Pulse ox on. NIBP on. Door closed. Noise minimized. Warm blanket given. 07:15 Attending Physician role handed off by Manuel Ward MD cha 07:15 Bill Palm MD is Attending Physician. [facility] 08:03 No provider procedures requiring assistance completed. Patient did not have IV access ap3 during this emergency room visit. Administered Medications: No medications were administered Outcome: 07:38 Discharge ordered by . [facility] 08:03 Discharged to home ambulatory. ap3 08:03 Condition: good 08:03 Discharge instructions given to patient, Instructed on discharge instructions, follow up and referral plans. Demonstrated understanding of instructions, follow-up care. 08:08 Patient left the ED. ap3 Signatures: Bill Palm MD MD cha Mickail, Joel, PA PA jmm Martinez, Amelia as Shawna Lim, RN RN ap3
--- NOTE | 2021-09-24 07:39 | EDPHYS ---
Physician Documentation [facility] Name: Tiffany Quinn Age: 51 yrs Sex: Female : 1970 Arrival Date: 09/24/2021 Time: 06:49 Bed 14 Private MD: ED Physician Bill Palm HPI: 09/24 07:15 This 51 yrs old Female presents to ER via Ambulatory with complaints of Shortness Of jmm Breath. 07:15 The patient has shortness of breath at rest. Onset: The symptoms/episode began/occurred jmm today. Duration: The symptoms are continuous. The patient's shortness of breath is aggravated by Meth. Associated signs and symptoms: Pertinent negatives:. The patient has not experienced similar symptoms in the past. This is a 51-year-old female with history of bipolar anxiety that presents with ED with complaints of shortness of breath after ingesting methamphetamine. Patient states she came in just to see if her breathing was okay.. 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 - Social history:: Smoking status: Patient reports the use of cigarette tobacco products, smokes one-half pack cigarettes per day, Patient uses street drugs, Methamphetamine (Meth). ROS: 07:15 Constitutional: Negative for fever, chills, and weight loss, Cardiovascular: Negative jmm for chest pain, palpitations, and edema. 07:15 Respiratory: Positive for shortness of breath. 07:15 All other systems are negative. Exam: 07:15 Constitutional: This is a well developed, well nourished patient who is awake, alert, jmm and in no acute distress. Head/Face: atraumatic. Eyes: EOMI, no conjunctival erythema appreciated ENT: Moist Mucus Membranes Neck: Trachea midline, Supple Chest/axilla: Normal chest wall appearance and motion. 07:15 Respiratory: Normal respirations, no respiratory distress appreciated Abdomen/GI: Non distended, soft Back: Normal ROM Skin: General appearance color normal MS/ Extremity: Moves all extremities, no obvious deformities appreciated, no edema noted to the lower extremities Neuro: Awake and alert, normal gait Psych: Behavior is normal, Mood is normal, Patient is cooperative and pleasant 07:15 Cardiovascular: Rate: normal, Rhythm: regular. Vital Signs: 07:19 BP 137 / 106; Pulse 101; Resp 18; Temp 97.8(TE); Pulse Ox 99% on R/A; Weight 79.38 kg; ap3 Height 5 ft. 5 in. (165.10 cm); 07:19 Body Mass Index 29.12 (79.38 kg, 165.10 cm) ap3 MDM: 07:15 Patient medically screened. [facility] 07:37 Data reviewed: vital signs, nurses notes. Counseling: I had a detailed discussion with raymundo the patient and/or guardian regarding: the historical points, exam findings, and any diagnostic results supporting the discharge/admit diagnosis, the need for outpatient follow up, to return to the emergency department if symptoms worsen or persist or if there are any questions or concerns that arise at home. ED course: vital signs are within normal limits. Patient is alert nontoxic in appearance in the ED. Advised to follow-up with PCP and otherwise given strict return precautions. Patient understood agrees plan of care.. Administered Medications: No medications were administered Disposition: 09:19 Co-signature as Attending Physician, Bill Palm MD I agree with the assessment and [facility] plan of care. Disposition Summary: 09/24/21 07:38 Discharge Ordered Location: Home [facility] Condition: Stable [facility] Diagnosis - Drug Abuse [facility] Followup: [facility] - With: Private Physician - When: 2 - 3 days - Reason: Recheck today's complaints, Continuance of care, Re-evaluation by your physician Discharge Instructions: - Discharge Summary Sheet jm - Methamphetamines Use Disorder [facility] Forms: - Medication Reconciliation Form [facility] - Thank You Letter jmm - Antibiotic Education jmm - Prescription Opioid Use pinky Signatures: Bill Palm MD MD cha Mickail, Joel, PA PA jmm Prokisch, Amanda, RN RN ap3
[2021-09-24 08:18] VITALS: BP 137/106; TEMP 97.8; O2SAT 99
== END 2021-09-24 08:08 | disposition home or self-care (01) ==
LOC: ER 06:47
DX: F15.10 Other stimulant abuse, uncomplicated (principal); F31.9 Bipolar disorder, unspecified; F17.210 Nicotine dependence, cigarettes, uncomplicated
CPT/HCPCS: 99284

== ENCOUNTER 2021-09-24 19:14 | Emergency (ER) | payer OTHER ==
--- OUTSIDE RECORDS SUMMARY | 2021-09-24 19:20 | XMS REPORT | Continuity of Care Document ---
:1970 Author Organization [facility] t Address [address] [place] [address] Care Team Providers Name Role Phone UNKNOWN Primary Care Physician Unavailable Humaira-Saraiayo_A_AH Attending Clinician Unavailable Sanchez SNOW Attending Clinician SANCHEZ Attending Clinician Unavailable Jovani Del Rosario Attending Clinician Doctor Unassigned, Name Attending Clinician Unavailable Singer ESCALANTE Attending Clinician Attending Clinician Unavailable Chente Attending Clinician Unavailable Chente Attending Clinician Unavailable ALEXYSUWKRYA Attending Clinician Unavailable Humaira-Saraiayo_A_AH Admitting Clinician Unavailable SANCHEZ Admitting Clinician Unavailable Chente Admitting Clinician Unavailable LOS Admitting Clinician Unavailable Payers Payer Name Policy Type Policy Number Effective Date Expiration Date S [facility] OF [place] - [id number] 2020 [employer] 00:00:00 (MEDICARE REPLACEMENT/ADVANT AGE - [...] 00 GASTROENTE RITIS AND COLITIS Active 01/21/2019 [facility] Irregular Irregular Disease Active Uni vers menstrual menstrual 8-15 ity of cycle cycle 00:00: [address] Skin Skin Disease Active Univers lesion lesion 8-15 ity of 00:00: [address] Psychiatri Psychiatri Disease Active U nivers c disorder c disorder 8-15 it y of 00:00: [address] Well woman Well woman Disease Active U nivers exam with exam with 8-15 ity of routine routine 00:00: [place] gynecologi gynecologi 00 Me dical nicky exam nicky exam Branch INFECTIOUS Diagnosis Active 2019-02-06 Memoria GASTROENTE 08:58:00 l RITIS AND Yonis COLITIS, INFECTIOUS GASTROENTE RITIS AND COLITIS, Active [facility] Allergies, Adverse Reactions, Alerts Allergy Allergy Status Severity Reaction(s) Onset Inactive Treating Comm ents Source Name Type Date Date Clinician NO KNOWN Drug Active Univers ALLERGIE Class ity of S [facility] Phenerga Phenerga Active [place] winif[place] Social History Social Habit Start Date Stop Date Quantity Comments Source History of Cigarette Smoker Universi ty of tobacco use [facility] Tobacco Comment 2-3 cigs a day General acute hospital Exposure to Not sure [place] of SARS-CoV-2 [facility] (event) [place] Tobacco use and 2016-06-08 2016-06-08 [facility] exposure 00:00:00 00:00:00 [facility] Alcohol intake 2016-06-08 2016-06-08 0 /d University of 00:00:00 00:00:00 [facility] Sex Ass[birth year] At [birth year] Universit y of 00:00:00 00:00:00 [facility] Smoking Status Start Date Stop Date Source Social History 2019-01-22 05:00:12 [facility] Her urena Current some day smoker 2016-06-08 00:00:00 [facility] Medications Ordered Filled Start Stop Current Ordering Indication Dosage Frequency Signature Comments Components Source Medication Medication Date Date Medication? Clinician (SIG) Name Name cefTRIAXone 2020-10- No 1000mg 1,000 mg, Univers (ROCEPHIN) 17 11-17 IV ity of 1,000 mg in 08:30: 08:01 [place], [place] NaCl 0.9% 00 :00 ONCE, 1 [...] 09/09/21 at 2330, RANDA amoxicillin 2020-10 Yes [id number] 500mg Take 1 Univers 500 mg 11-10 capsule by ity of capsule 00:00: mouth 3 [place] 00 (three) Medical times Branch daily. ondansetron 2019-10- No 4mg 4 mg, [facility] ers (ZOFRAN-ODT 12-01 Oral, ity of ) 15:15: 14:16 ONCE, 1 [place] disintegrat 00 :00 dose, Mon Med ical ing tablet 09/30/20 at [facility] 4 mg 0915, Routine ondansetron 2019-10- No 4mg 4 mg, [facility] ers (ZOFRAN-ODT 12-01- Oral, ity of ) 14:30: 13:32 ONCE, 1 [place] disintegrat 00 :00 dose, Mon Med ical ing tablet 09/30/20 at [facility] 4 mg 0830, Routine ondansetron 2019-10 Yes [id number] 4mg Take 1 Univers 4 mg 2-07 tablet by ity of disintegrat 00:00: mouth [place] ing tablet 00 every 8 Medica l (eight) Branch hours as needed for Nausea and Vomiting (N/V). ondansetron 2019-10 Yes [id number] 4mg Take 1 Univers 4 mg 2-07 tablet by ity of disintegrat 00:00: mouth [place] ing tablet 00 every 8 Medica l (eight) Branch hours as needed for Nausea and Vomiting (N/V). ondansetron 2019-10 Yes [id number] 4mg Take 1 Univers 4 mg 2-07 tablet by ity of disintegrat 00:00: mouth [place] ing tablet 00 every 8 Medica l (eight) Branch hours as needed for Nausea and Vomiting (N/V). ondansetron 2019-10 Yes [id number] 4mg Take 1 Univers 4 mg 2-07 tablet by ity of disintegrat 00:00: mouth [place] ing tablet 00 every 8 Medica l (eight) Branch hours as needed for Nausea and Vomiting (N/V). ciprofloxac 2019 Yes 500 mg = 1 Memoria in 500 mg 4-04 tab, PO, l oral tablet 17:35: [id number], X [place] 00 4 day, # 8 tab, 0 [...] 4-04 tab, PO, l oral tablet 17:35: [id number], X [place] 00 4 day, # 8 tab, 0 Refill(s) Ondansetron 2018- Yes 4 mg = 1 Me moria 4 MG Oral 4-04 tab, PO, l Tablet 17:35: Q6H, PRN [place] [Zofran] 00 Nausea/Vom iting, # 20 tab, [...] s with feeding tube less than 14 [place] (Dobhoff, J-tube etc) and pediatric and patients. [...] s with feeding tube less than 14 [place] (Dobhoff, J-tube etc) and pediatric and patients. Strattera No 0.5 mg/kg, Me moria 01-24 Route: PO, l 14:00: QAM, [place] Dosing Weight 75, kg, Start date: 01/24/19 [...] ia 4- (Same As: l 18:00: KlonoPIN) [place] Flagyl No Notes: Memoria 4- (Same as: l 15:00: Flagyl) Yonis 00 Take with food/ avoid alcohol Cipro No Notes: May Memori a - interfere l 15:00: w/enteral Yonis 00 feedings - Take 1 hr before or 2 hrs after antacids, dairy pdt & minerals. On empty stomach. Flagyl No Notes: Memoria 4- (Same as: l 15:00: Flagyl) [place] 00 Take with food/ avoid alcohol Cipro No Notes: February Memori a 4- interfere l 15:00: w/enteral [place] 00 feedings - Take 1 hr before [...] PO, ONCE, l mEq oral 14:20: 0 [place] tablet, 00 Refill(s) extended release Metronidazo No 500 mg, Mem oria le 500 MG 4-01 PO, l Oral Tablet 14:20: [id number], 0 [place] [Flagyl] 00 Refill(s) Ciprofloxac No 500 mg, Mem oria in 500 MG 01 PO, l Oral Tablet 14:20: [id number], 0 [place] [Cipro] 00 Refill(s) potassium Yes 40 mEq, Memor ia chloride 20 -01 PO, ONCE, l mEq oral 14:20: 0 [place] tablet, 00 Refill(s) extended release Metronidazo No 500 mg, Mem oria le 500 MG 4-01 PO, l Oral Tablet 14:20: [id number], 0 H [place] [Flagyl] 00 Refill(s) Ciprofloxac No 500 mg, Mem oria in 500 MG 4-01 PO, l Oral Tablet 14:20: [id number], 0 [place] [Cipro] 00 Refill(s) Potassium No Notes: Memori [...] s with feeding tube less than 14 [place] (Dobhoff, J-tube etc) and pediatric and patients. [...] s with feeding tube less than 14 [place] (Dobhoff, J-tube etc) and pediatric and patients. [...] tab, PO, l Tablet 21:08: BID, 0 [place] [Risperdal] 00 Refill(s) Strattera Yes 0.5 mg/kg, [...] tab, PO, l Tablet 21:08: BID, 0 [place] [Risperdal] 00 Refill(s) Zosyn No Notes: Memoria [...] oria 3-31 to exceed l 15:03: 400mg/day. [place] 00 (Same As: Ultram) Tramadol No Notes: [...] 01-22 Route: IM, l 09:47: Drug form: [place] 00 PDR/INJ, PRN, Dosing Weight 75.994, kg, [...] Memoria 3-31 (Same as: l 08:56: Zofran) [place] MEDICATION WASTE Product Size: 4 mg Product [...] moria IV - 1,000 l 05:44: ml/hr, [place] 00 Infuse Over: 1 hr, Route: IV, [...] 0.9% 3-31 Same as: l 04:52: BD [place] Posiflush Sterile NS (Bolus) No 1,000 mL, Me moria IV 3-31 1,000 l 04:51: ml/hr, Yon[place] 00 Infuse Over: 1 hr, Route: IV, 1,000, Drug form: INJ, ONCE, Priority: STAT, Dosing Weight 75.994 kg, Start date: 01/21/19 23:51:00 CDT, Stop date: 01/21/19 23:51:00 CDT NS (Bolus) No 1,000 mL, Me moria IV 01-22 1,000 l 04:51: ml/hr, [place] 00 Infuse Over: 1 hr, Route: IV, [...] HYDROBROMID 8-15 mouth. ity of E 19:02: [place] (CITALOPRAM 27 Medical ORAL) Branch ibuprofen 2016-0 Yes 200mg Take 200 Uni vers (ADVIL) 200 8-15 mg by ity of mg tablet 14:02: mouth [place] [address] every 6 Medical (six) Branch hours as needed. CLONAZEPAM 2016-0 Yes Take by Uni vers (KLONOPIN 8-15 mouth. ity of ORAL) 14:02: [address] Branch CITALOPRAM 2016-0 Yes Take by Uni vers HYDROBROMID 8-15 mouth. ity of E 14:02: [place] (CITALOPRAM 27 Medical ORAL) Branch ibuprofen 2016-0 Yes 200mg Take 200 Uni vers (ADVIL) 200 8-15 mg by ity of mg tablet 14:02: mouth [place] [address] every 6 Medical (six) Branch hours as needed. CLONAZEPAM 2016-0 Yes Take by Uni vers (KLONOPIN 8-15 mouth. ity of ORAL) 14:02: [address] Branch CITALOPRAM 2016-0 Yes Take by Uni vers HYDROBROMID 8-15 mouth. ity of E 14:02: [place] (CITALOPRAM 27 Medical ORAL) Branch ibuprofen 2016-0 Yes 200mg Take 200 Uni vers (ADVIL) 200 8-15 mg by ity of mg tablet 14:02: mouth [place] [address] every 6 Medical (six) Branch hours as needed. CLONAZEPAM 2016-0 Yes Take by Uni vers (KLONOPIN 8-15 mouth. ity of ORAL) 14:02: [place] [address] Medical Branch CITALOPRAM 2016-0 Yes Take by Uni vers HYDROBROMID 8-15 mouth. ity of E 14:02: [place] (CITALOPRAM 27 Medical ORAL) Branch misoprostol 2016-0 [...] H it y of en-caff 00:00: PRN. [place] (ESGIC) 00 Medical 50-325-40 Branch mg tablet butalbital- 2015-0 Yes TK 1 TO 2 U nivers acetaminoph 8-01 T PO Q 8 H it y of en-caff 00:00: PRN. [place] (ESGIC) 00 Medical 50-325-40 Branch mg tablet butalbital- 2015-0 Yes TK 1 TO 2 U nivers acetaminoph 8-01 T PO Q 8 H it y of en-caff 00:00: PRN. [place] (ESGIC) 00 Medical 50-325-40 Branch mg tablet butalbital- 2016-0 Yes TK 1 TO 2 U nivers acetaminoph 8-01 T PO Q 8 H it y of en-caff 00:00: PRN. [place] (ESGIC) 00 Medical 50-325-40 Branch mg tablet dextroamphe 0 Yes TK 1 T PO U nivers tamine-amph 7-20 BID. ity of etamine 00:00: [place] (ADDERALL) 00 Medical 20 mg Branch tablet dextroamphe Yes TK 1 T PO U nivers tamine-amph 7-20 BID. ity of etamine 00:00: [place] (ADDERALL) 00 Medical 20 mg Branch tablet dextroamphe Yes TK 1 T PO U nivers tamine-amph 7-20 BID. ity of etamine 00:00: [place] (ADDERALL) 00 Medical 20 mg Branch [...] 2021-09-10 08:01:00 138 mm[Hg] Univer sity of [facility] Diastolic blood 2021-09-10 08:01:00 97 mm[Hg] Unive rsity of [facility] Heart rate 2021-09-10 08:01:00 87 /min [facility] Respiratory rate 2021-09-10 08:01:00 20 /min [facility] O[facility] saturation in 2021-09-10 08:01:00 98 /min University of Arterial blood by [place] [facility]OOK [facility] Pulse oximetry Branch Body temperature 2021-09-10 04:28:51 37.17 Ruthann [facility] Body height 2021-09-10 04:26:00 154.9 cm [facility] Body weight 2021-09-10 04:26:00 81.647 kg [facility] BMI 2021-09-10 04:26:00 34.01 kg/m2 [facility] Systolic blood 2021-09-09 20:06:00 150 mm[Hg] Univer sity of [facility] Diastolic blood 2021-09-09 20:06:00 89 mm[Hg] Unive rsity of [facility] Heart rate 2021-09-09 20:06:00 108 /min [facility] Body temperature 2021-09-09 20:06:00 37.22 Ruthann [facility] Respiratory rate 2021-09-09 20:06:00 18 /min [facility] Oxygen saturation in 2021-09-09 20:06:00 99 /min University of Arterial blood by [employer] nicky Pulse oximetry Branch Body weight 2021-09-09 20:05:00 81.647 kg Universi ty of [place] [facility] BMI 2021-09-09 20:05:00 32.40 kg/m2 Universi ty [facility] [place] [facility] Systolic blood 2020-09-30 14:00:00 126 mm[Hg] Univer sity of pressure [place] [facility] Diastolic blood 2020-09-30 14:00:00 84 mm[Hg] Unive rsity of pressure [place] [facility] Heart rate 2020-09-30 14:00:00 79 /min Universi ty [facility] [place] [facility] Oxygen saturation in 2020-09-30 14:00:00 98 /min University of Arterial blood by [facility] nicky Pulse oximetry Branch Body temperature 2020-09-30 13:26:00 37.22 Ruthann Univ ersity of [place] [facility] Respiratory rate 2020-09-30 13:26:00 16 /min Univ ersity of [place] [facility] Body weight 2020-09-30 13:26:00 72.576 kg [facility]i ty [facility] [place] [facility] BMI 2020-09-30 13:26:00 28.80 kg/m2 [facility]i ty [facility] [place] [facility] Systolic blood 2020-09-30 14:00:00 126 mm[Hg] Univer sity of pressure [place] [facility] Diastolic blood 2020-09-30 14:00:00 84 mm[Hg] Unive rsity of pressure [place] [facility] Heart rate 2020-09-30 14:00:00 79 /min Universi ty of [place] [facility] Oxygen saturation in 2020-09-30 14:00:00 98 /min University of Arterial blood by [facility] nicky Pulse oximetry Branch Body temperature 2020-09-30 13:26:00 37.22 Ruthann Univ ersity of [place] [facility] Respiratory rate 2020-09-30 13:26:00 16 /min Univ ersity of [place] [facility] Body weight 2020-09-30 13:26:00 72.576 kg [facility]i ty [facility] [place] [facility] BMI 2020-09-30 13:26:00 28.80 kg/m2 [facility]i ty [facility] [place] [facility] Temperature Oral (F) 2019-01-28 01:16:00 98.6 F [facility] Yon[place] Systolic (mm Hg) 2019-01-28 01:16:00 Estrada rial [place] Diastolic (mm Hg) 2019-01-28 01:16:00 Mem orial [place] Heart Rate 2019-01-28 01:16:00 Memorial [place] Respitory Rate 2019-01-28 01:16:00 Memori al [place] Systolic (mm Hg) 2019-01-27 20:42:00 Estrada rial [place] Diastolic (mm Hg) 2019-01-27 20:42:00 Mem orial [place] Heart Rate 2019-01-27 20:42:00 Memorial [place] Respitory Rate 2019-01-27 20:42:00 Memori al [place] Temperature Oral (F) 2019-01-27 20:42:00 98.5 F [facility] Y[place] Systolic (mm Hg) 2019-01-27 17:00:00 Estrada rial [place] Diastolic (mm Hg) 2019-01-27 17:00:00 Mem orial [place] Temperature Oral (F) 2019-01-27 17:00:00 98.5 F [facility] [place] Heart Rate 2019-01-27 17:00:00 [facility] [place] Respitory Rate 2019-01-27 17:00:00 [facility] Height 2019-01-22 14:35:00 157.48 cm [facility] BMI Calculated 2019-01-22 14:35:00 [facility] [place] Weight 2019-01-22 14:35:00 [facility] [place] Weight 2019-01-22 04:34:00 [facility] Procedure Date / Time Performing Clinician Source Performed URINALYSIS 2021-09-10 06:03:00 Neena Bradford [facility] URINE DRUG (IMMUNOASSAY) 2021-09-10 06:03:00 Neena Bradford [facility] SCREEN W/O REFLEX XR CHEST 1 VW 2021-09-10 04:57:30 Neena Bradford [facility] CREATINE KINASE 2021-09-10 04:39:00 Neena Bradford [facility] MAGNESIUM 2021-09-10 04:39:00 Neena Bradford [facility] TROPONIN I 2021-09-10 04:39:00 Neena Bradford [facility] COMP. METABOLIC PANEL 2021-09-10 04:39:00 Neena Bradford [facility] ([id number]) Medical [place] CBC WITH DIFF 2021-09-10 04:39:00 Neena Bradford [facility] PROTHROMBIN TIME / INR 2021-09-10 04:39:00 Neena Bradford [facility] ACTIVATED PARTIAL 2021-09-10 04:39:00 Neena Bradford [facility] THRMPLAS [facility] N-TERMINAL PRO-BNP 2021-09-10 04:39:00 Neena Bradford [facility] COVID-19 (ID NOW RAPID 2021-09-10 04:39:00 Neena Bradford [facility] TESTING) Medical Branch TROPONIN I 2021-09-09 21:49:00 [facility] COMP. METABOLIC PANEL 2021-09-09 21:49:00 [facility] ([id number] Medical Branch LITHIUM 2021-09-09 21:49:00 [facility] CBC WITH DIFF 2021-09-09 21:49:00 [facility] CONSENT/REFUSAL FOR 2021-09-09 19:51:22 Doctor Unassigned, No Un [facility] DIAGNOSIS AND TREATMENT Name Medical Branch URINALYSIS 2020-09-30 13:27:00 [facility] ADC,CLC OR LCC ONLY - 2020-09-30 13:27:00 [place] [facility] INFLUENZA A & B DIRECT Medical B ranch ANTIGEN COVID-19 (ID NOW RAPID 2020-09-30 13:27:00 [facility] TESTING) Medical Branch Encounters Start End Encounter Admission Attending Care Care Encounter Source Date/Time Date/Time Type Type Clinicians Facility Department ID 2021-09-07 Outpatient Humaira-Saraiayo VFP VFP [id number] [facility] 13:23:42 _A_ [id number] Family Practic e 2019-01-22 Inpatient E [facility] [id number] MHS W 04:39:00 2021-09-09 2021-09-10 Emergency Sanchez [facility] [id number] Univers 22:20:00 03:02:00 Neena WALSH [id number] i ty of [place] 4.2.7.2.686 [facility] [id number] [address] 2021-09-09 2021-09-10 Emergency [facility] [id number] Univers 22:20:00 03:02:00 NEENA cherrei [facility] 2021-09-09 2021-09-10 Emergency [facility] [id number] Univers 22:20:00 03:02:00 NEENA tubbs [facility] 2021-09-09 2021-09-09 Emergency Julia [facility] [id number] Univers 14:07:00 17:35:00 Luanne GOVEACHEN [id number] i ty of [place] 4.2.7.2.686 [facility] [id number] [address] 2021-09-09 2021-09-09 Orders Doctor BELKYS [id number] Univers 00:00:00 00:00:00 Only Unassigned, LANA 350.1.13.10 ity of [facility] 4.2.7.2.686 [facility] [id number] [address] 2020-09-30 2020-09-30 Emergency [facility] [id number] Univers 07:22:00 08:18:00 Chuy [place]aton [id number] i ty of [place] 4.2.7.2.686 [facility] [id number] [address] 2020-09-30 2020-09-30 Emergency [facility] [id number] 07:22:00 08:18:00 Chuy Walsh [id number] [place] 4.2.7.2.686 [place] [id number] 2020-09-30 2020-09-30 Emergency Lise [facility] [id number] Univers 07:22:00 07:22:00 CHUY tubbs [facility] 2020-04-05 2020-04-05 Outpatient Bernadine [facility] [id number] [facility] 05:44:00 05:44:00 _A_ [id number] Family Practic e 2020-04-05 2020-04-05 Outpatient Humaira-Alekso VFP VFP [id number] [facility] 05:44:00 05:44:00 _A_AH [id number] Family Practic e 2020-04-05 2020-04-05 Outpatient Humaira-Alekso VFP VFP [id number] [facility] 05:44:00 05:44:00 _A_AH [id number] Family Practic e 2020-03-04 2020-03-14 Inpatient [address] [facility] PS[facility] [id number] 15:38:00 15:25:00 Chente [facility] 2019-12-13 2019-12-13 Outpatient Humaira-Alekso VFP VFP [id number] [facility] 07:22:00 07:22:00 _A_AH [id number] Family Practic e 2019-01-22 2019-01-28 Inpatient [facility] [id number] Memoria 04:33:00 04:40:00 martin [place] 00 l [facility] 2018-02-21 2018-02-20 [id number] 14:48:00 13:18:00 [facility] Results Test Description Test Time Test Comments Results Result Comments Source TROPONIN I 2021-09-10 05:26:53 Test Item Value Reference Range Interpretation Comme nts TROPONIN I (test code = 0.003 ng/mL See_Comment [Au tomated message] The 0269242723) system which ge nerated this result tra [...] biotin. Lab Interpretation Normal (test code = 40313-1) [facility] [id number] 05:24:16 Test Item Value Reference Range Interpretation Comments NT-proBNP (test code 35 pg/mL See_Comment [Autom ated = 7381363888) message] The system which generated this result transmitted reference range : <=125. The reference range was not used to interpret this result as normal/abnormal . PERRY (test code = PERRY) Biotin has been reported to cause a negative bias, interpret results relative to patient's use of biotin. Lab Interpretation Normal (test code = 26178-5) [facility]2021-11-17 05:16:51 Test Item Value Reference Range Interpretation Comments MAGNESIUM (test code = 0089915407) 1.8 mg/dL 1.7-2.4 Lab Interpretation (test code = Normal 66759-9) [facility] METABOLIC PANEL ([id number])2021-09-10 05:16:31 Test Item Value Reference Range Interpretation Comments NA (test code = 139 mmol/L 135-145 6278679024) K (test code = 4.0 mmol/L 3.5-5.0 2906572865) CL (test code = 108 mmol/L 98-108 7794215247) CO2 TOTAL (test code 25 mmol/L 23-31 = 2973601545) AGAP (test code = 2-16 6823516783) BUN (test code = 14 mg/dL 7-23 0215868199) GLUCOSE (test code = 88 mg/dL 70-110 5514154896) CREATININE (test code 0.89 mg/dL 0.50-1.04 = 8030164099) TOTAL BILI (test code 0.5 mg/dL 0.1-1.1 = 2055020962) CALCIUM (test code = 10.3 mg/dL 8.6-10.6 8850935294) T PROTEIN (test code 6.9 g/dL 6.3-8.2 = 1255276188) ALBUMIN (test code = 4.3 g/dL 3.5-5.0 1871243309) ALK PHOS (test code = 72 U/L 34-122 9455784118) ALTv (test code = 17 U/L 5-35 1742-6) AST(SGOT) (test code 29 U/L 13-40 = 4152691393) eGFR (test code = mL/min/1.73m2 1669833793) PERRY (test code = PERRY) Association of [...] urine or abnormalities in imaging tests). [facility] [id number] 05:16:16 Test Item Value Reference Range Interpretation Comments CK (test code = 8551417201) 267 U/L 33-194 H Lab Interpretation (test code = Abnormal 25559-3) [facility] THRMPLAS [id number] 05:05:32 Test Item Value Reference Range Interpretation Comments APTT Patient (test See_Comment [Automat ed code = 3173-2) message] The system which generated this result transmitted reference range : 23 - 38 Seconds . The reference range was not used to interpr et this result as normal/abnormal . PERRY (test code = PERRY) The [facility] patient population mean normal value for aPTT is 30 seconds. Lab Interpretation Normal (test code = 04596-4) [facility] TIME / [id number] 05:03:30 Test Item Value Reference Range Interpretation [...] tions. Lab Interpretation (test Normal code = 59394-8) [facility] WITH [id number] 04:57:13 Test Item Value Reference Range Interpretation Comments WBC (test code = See_Comment [Automated 1490-2) message] The sy stem which generated this result transmitted reference range : 4.30 - 11.10 10*3/?L. The reference range was not used to interpret this result as normal/abnormal . RBC (test code = See_Comment [Automated 469-8) message] The sy stem which generated this [...] RDW-SD (test code = 41.2 fL 39.0-49.9 60273-0) RDW-CV (test code = 13.0 % 12.0-15.5 788-0) PLT (test code = See_Comment H [Automated 147-3) message] The sy stem which generated this result transmitted reference range : 166 - 358 10*3/ ?L. The reference r katie was not used to interpret this result as normal/abnormal . MPV (test code = 9.6 fL 9.5-12.9 04912-5) NRBC/100 WBC (test See_Comment [Automat ed code = 7075776597) message] The system which generated this result transmitted reference range : 0.0 - 10.0 /100 WBCs. The refer ence range was not u sed to interpret th is result as normal/abnormal . NRBC x10^3 (test code <0.01 See_Comment [Auto mated = 6118374510) message] The s ystem which generated this result transmitted reference range : 10*3/?L. The reference range was not used to interpret this result as normal/abnormal . GRAN MAT (NEUT) % 61.9 % (test code = 770-8) IMM GRAN % (test code 0.30 % = 1888190452) LYMPH % (test code = 26.0 % 736-9) MONO % (test code = 9.5 % 5905-5) EOS % (test code = 1.6 % 713-8) BASO % (test code = 0.7 % 706-2) GRAN MAT x10^3(ANC) 5.91 10*3/uL 1.88-7.09 (test code = 2473116785) IMM GRAN x10^3 (test 0.03 10*3/uL 0.00-0.06 code = 3601358437) LYMPH x10^3 (test code 2.48 10*3/uL 1.32-3.29 = 731-0) MONO x10^3 (test code 0.91 10*3/uL 0.33-0.92 = 742-7) EOS x10^3 (test code = 0.15 10*3/uL 0.03-0.39 711-2) BASO x10^3 (test code 0.07 10*3/uL 0.01-0.07 = 704-7) Lab Interpretation Abnormal (test code = 60146-9) [facility] L0945-43-23 22:24:55 Test Item Value Reference Interpretation Comments Range TROPONIN I (test 0.002 ng/mL See_Comment [Automated code = 0593231927) message] The system which generated this result [...] biotin. Lab Interpretation Normal (test code = 56676-4) [facility]2021-[facility]-16 22:24:34 Test Item Value Reference Range Interpretation Comments Nikolski (test code = <0.2 0.6-1.2 L 7606999952) PERRY (test code = PERRY) Toxic Range: ? Greater than 1.2 mmol/L Lab Interpretation (test Abnormal code = 48238-1) [facility] METABOLIC PANEL (22113)2021-09-09 22:13:54 Test Item Value Reference Range Interpretation Comments NA (test code = 139 mmol/L 135-145 0754552361) K (test code = 4.0 mmol/L 3.5-5.0 8910411434) CL (test code = 105 mmol/L 98-108 1662771026) CO2 TOTAL (test code 26 mmol/L 23-31 = 7505055960) AGAP (test code = 2-16 6930297190) BUN (test code = 11 mg/dL 7-23 8367602018) GLUCOSE (test code = 109 mg/dL 70-110 5334055723) CREATININE (test code 0.71 mg/dL 0.50-1.04 = 0162584823) TOTAL BILI (test code 0.6 mg/dL 0.1-1.1 = 6769916781) CALCIUM (test code = 10.4 mg/dL 8.6-10.6 4171713730) T PROTEIN (test code 7.6 g/dL 6.3-8.2 = 0371832195) ALBUMIN (test code = 4.7 g/dL 3.5-5.0 2117531752) ALK PHOS (test code = 78 U/L 34-122 1076985498) ALTv (test code = 19 U/L 5-35 1742-6) AST(SGOT) (test code 28 U/L 13-40 = 2482711777) eGFR (test code = mL/min/1.73m2 6276972927) PERRY (test code = PERRY) Association of [...] or urine or abnormalities in imaging tests). [facility] WITH [id number] 22:03:32 Test Item Value Reference Range Interpretation Comments WBC (test code = See_Comment [Automated 0290-2) message] The sy stem which generated this [...] RDW-SD (test code = 40.2 fL 39.0-49.9 17989-2) RDW-CV (test code = 12.9 % 12.0-15.5 788-0) PLT (test code = See_Comment H [Automated 777-3) message] The sy stem which generated this result transmitted reference range : 166 - 358 10*3/ ?L. The reference r katie was not used to interpret this result as normal/abnormal . MPV (test code = 9.4 fL 9.5-12.9 L 26745-8) NRBC/100 WBC (test See_Comment [Automat ed code = 7283097108) message] The system which generated this result transmitted reference range : 0.0 - 10.0 /100 WBCs. The refer ence range was not u sed to interpret th is result as normal/abnormal . NRBC x10^3 (test code <0.01 See_Comment [Auto mated = 5312516317) message] The s ystem which generated this result transmitted reference range : 10*3/?L. The reference range was not used to interpret this result as normal/abnormal . GRAN MAT (NEUT) % 67.1 % (test code = 770-8) IMM GRAN % (test code 1.00 % = 3449198573) LYMPH % (test code = 21.4 % 736-9) MONO % (test code = 7.9 % 5905-5) EOS % (test code = 1.8 % 713-8) BASO % (test code = 0.8 % 706-2) GRAN MAT x10^3(ANC) 7.35 10*3/uL 1.88-7.09 H (test code = 7493747986) IMM GRAN x10^3 (test 0.11 10*3/uL 0.00-0.06 H code = 2755592643) LYMPH x10^3 (test code 2.34 10*3/uL 1.32-3.29 = 731-0) MONO x10^3 (test code 0.86 10*3/uL 0.33-0.92 = 742-7) EOS x10^3 (test code = 0.20 10*3/uL 0.03-0.39 711-2) BASO x10^3 (test code 0.09 10*3/uL 0.01-0.07 H = 704-7) Lab Interpretation Abnormal (test code = 68968-8) [facility] ONLY - INFLUENZA A & B DIRECT QHXFBYH9771-57-86 14:04:00 Test Item Value Reference Range Interpretation Comments Influenza A (test code = 87057-9) Negative Negative Influenza B (test code = 76253-9) Negative Negative Lab Interpretation (test code = Normal 39237-8) [facility]OVID[facility] (ID NOW RAPID TESTING)2020-09-30 14:03:00 Test Item Value Reference Range Interpretation Comments SARS-CoV-2 Rapid ID NOW Not Detected Not Detected (test code = 00011-3) PERRY (test code = PERRY) ID NOW COVID-19 Assay is an isothermal nucleic acid amplification test intended for the qualitative detection of nucleic acid from SARS-CoV-2 viral RNA in nasopharyngeal (VOLUNTEER ASSISTANT) specimens. It is used under Emergency Use [...] indicated. Lab Interpretation Normal (test code = 65517-8) [facility]IN[facility]IS2020-12-07 13:55:00 Test Item Value Reference Range Interpretation Comments APPEARANCE (test code = Hazy Clear A 3939098623) COLOR (test code = Yellow Yellow 6407826096) PH (test code = 4.8-8.0 0900383946) SP GRAVITY (test code = 1.003-1.030 5304279300) GLU U QUAL (test code = Normal Normal 0996003145) BLOOD (test code = Negative Negative 7535746980) KETONES (test code = 5 mg/dL Negative A 6775340949) PROTEIN (test code = Negative Negative 2887-8) UROBILIN (test code = 2.0 mg/dL Normal A 1100972257) BILIRUBIN (test code = Negative Negative 2630288096) NITRITE (test code = Negative Negative 7763126136) LEUK ROZINA (test code = 25/uL Negative A 6071841229) RBC/HPF (test code = See_Comment [Autom ated message] 9902435962) The system [employer] generated this result transmit ngozi reference range : 0 - 3 HPF. The refe rence range was not u sed to interpret th is result as normal/abnormal . WBC/HPF (test code = See_Comment [Autom ated message] 7064464241) The system [employer] generated this result transmit ngozi reference range : 0 - 5 HPF. The refe rence range was not u sed to interpret th is result as normal/abnormal . BACTERIA (test code = Few Negative A 4706023965) MUCOUS (test code = Slight Negative LPF A 9201144381) SQ EPITH (test code = HPF 1995108638) Lab Interpretation (test Abnormal code = 36256-7) [facility]PR Pjzkdfwtjzx8763-90-92 16:42:24 Test Item Value Reference Range Interpretation [...] = 10-24-2020 N Expiration Dt) Thyroid Stimulating Vsnxkeq4794-33-72 08:35:16 Test Item Value Reference Range Interpretation Comments TSH (test code = TSH) 1.170 mIU/mL 0.270-4.200 Lipid Cfibh6472-45-62 08:21:19 Test Item Value Reference Range Interpretation Comments Cholesterol Total 254 mg/dL 0-200 H RISK OF HE ART (test code = DISEASEPublishe d by Cholesterol Total) [place] [employer] Cathie lyte Optimal Borderl ine [...] calculation is LDL/HDL Ratio=L DL Calc/HDL Chol CHSBCIHHWGEP3316-32-19 08:24:008.6[facility] ZohqqjyTJJDMNWKVSQA7547-92-54 08:24:79714Bofwlsjp KruncybOXTRFHFNCFCP8513-31-77 08:24:0027[facility] [place] QHQPDFCBNXGR5132-40-20 08:24:47207Wqczoufu TncazamDMAQCNYNQXRL7197-64-18 08:24:003.6[facility] FdjkvuxQFVKVUGJAEGS2004-26-77 08:24:000.70[facility] NSOVSSEHMMZQ2247-42-27 08:24:008.4[facility] VtgzmfgPZAWDZQKGNAJ1928-72-13 08:24:38467Iacfnghy QaiamgrBLXYCHTHAFWC8512-62-25 08:24:0086[facility] [place] NHFUCAIIDWKR0811-41-28 08:24:006[facility] EjjtnyvJRSQFVWRVD5774-94-49 08:24:00 11.6[facility] IrbajmiBIBUULYSDD6183-94-75 08:24:003.78[facility] HermannHEMATOLOGY 2019-01-26 08:24:0013.3[facility] WftuplfATSBDIUMIK0703-43-50 08:24:0034.0[facility] EubjchhOQNPCJLNWL7602-03-10 08:24:006.3[facility] RwvebioNOKNZTDYED8967-53-68 08:24:00 Test Item Value Reference Range Interpretation Comments MCH (test code = MCH) 30.7 pg 27.0-31.0 [facility] NjdvgwvBGOWJMCQNG3833-97-95 08:24:0090.3[facility] HermannHEMATOLOGY 2019-01-26 08:24:0034.2[facility] EqagyopOGIXPDMIJV7467-40-35 08:24:52387Ypwssdma YqosglnBZEENEPHZI4863-76-16 08:24:007.5[facility] NoukbgcRKAPZFBCVXZE2573-22-50 08:24:008.[facility]orial IxmzmdnRLOJBRRLMJCT4083-94-72 08:24:83822Wpqzqoiy Yonis VZDLHBWMGAUK7749-60-40 08:24:0027[facility] JochmvzSLAASNJDLTXX9862-41-91 08:24:00 139[facility] AysmqgfSPRDPABTENDF2743-34-87 08:24:003.6[facility] [place] HDKNYQBFTWXW3373-41-17 08:24:000.70[facility] ZwronuoFKCYCXCXYSHN7232-35-04 08:24:008.4[facility] LyqqdhcXUZYCHMIHNXR6213-77-60 08:24:04726Exrvruwt [place] TXHJBXNYSMBS6576-61-65 08:24:0086[facility] GpzscafHNGAFKAFJIGH5113-41-92 08:24:00 6[facility] LmhcxlbAYHLQXDEMZ4224-84-95 08:24:0011.6[facility] HermannHEMATOLOGY 2019-01-26 08:24:003.78[facility] VqxkyzxSCFWXIKXPM6721-87-50 08:24:0013.3[facility] TlaigwmJPCPCNIAJL1345-63-65 08:24:0034.0[facility] ZqhjidzVYFCDOJMYV8150-14-94 08:24:006.3[facility] EiigcfuJKHGOYRCJY0002-29-96 08:24:00 Test Item Value Reference Range Interpretation Comments MCH (test code = MCH) 30.7 pg 27.0-31.0 [facility] BbwuqahQLNYNTKSBG7281-89-41 08:24:0090.3[facility] HermannHEMATOLOGY 2019-01-26 08:24:0034.2[facility] BvokhtmCGUKYSSHIW3517-26-33 08:24:97321Mlymucso BhonmbdYPYDSHLXRL0387-88-79 08:24:007.5[facility] HermannCHEM JMBCC9387-47-68 09:14:06823Kzofahln HermannCHEM FUIGU4092-44-27 09:14:008.5[facility] HermannCHEM JFUKB0250-97-64 09:14:0013.3[facility] HermannCHEM JEVSP1030-20-35 09:14:0024 [facility]annCHEM MDQNK0307-39-33 09:14:51261Rtnxjrpm HermannCHEM PANEL 2019-01-25 09:14:0081[facility] HermannCHEM SKHXP7989-47-34 09:14:002[facility]annCHEM BZUNJ4031-95-66 09:14:003.3[facility]annCHEM QFDIG9668-26-19 09:14:000.60[facility]annCHEM RJNET3523-97-28 09:14:73391Wygacgyf HermannCHEM BBKRN8596-23-29 09:14:36113Qezzqlwa HermannCHEM BOYKD7476-77-54 09:14:008.5 [facility]annCHEM ZTXLA9011-25-05 09:14:0013.3[facility] HermannCHEM PANEL 2019-01-25 09:14:0024[facility] HermannCHEM GHKDJ1926-73-12 09:14:60707Uksbuaqt HermannCHEM GIWYQ9119-21-40 09:14:0081[facility]annCHEM OAZUR2876-69-57 09:14:002[facility]annCHEM WQKUB3210-05-70 09:14:003.3[facility]annCHEM MPBSJ3392-84-67 09:14:000.60[facility] HermannCHEM HPJPV5959-48-85 09:14:55974 [facility]annMOLECULAR DJQOUKLASM3008-08-28 16:22:00Negative (01/23/19 11:22 AM)[facility] HermannMOLECULAR QRXSHXFJUW7573-15-41 16:22:00Negative (01/23/19 11:22 AM)[facility]annCHEM LQIJZ0315-47-70 15:42:002.76[facility] HermannCHEM PANEL 2019-01-23 15:42:002.76[facility] HermannCHEM ZQPUJ1384-53-82 12:32:000.9[facility]annCHEM DGAZK9208-56-99 12:32:000.9[facility]annCHEM LTYIY5351-88-88 10:50:002.0[facility]annCHEM JGYRC9342-20-95 10:50:26289Qyhdvgab HermannCHEM HYUCQ8029-21-08 10:50:0023[facility] HermannCHEM LOUJA1134-64-86 10:50:53646 [facility]annCHEM IBVTJ0038-69-20 10:50:003.1[facility] HermannCHEM PANEL 2019-01-23 10:50:87575Ykaghfgf HermannCHEM YXLIE1004-42-86 10:50:005[facility] HermannCHEM UFTJL5957-50-27 10:50:000.50[facility] HermannCHEM UDPEH9728-62-96 10:50:007.8[facility] HermannCHEM DNXPJ8727-18-56 10:50:0083[facility]annCHEM IKATW9516-17-44 10:50:0010.1[facility] KjzrptcINNCCNXMZA9583-10-85 10:50:000.2 [facility] JruqwjpIMVLDTBHXR0699-90-17 10:50:000.8[facility] HermannHEMATOLOGY 2019-01-23 10:50:005.5[facility] GmywzjfXNGRZNQCHH7437-74-26 10:50:002.2[facility] HbmpihcDTLNXDFKYK8288-32-88 10:50:000.1[facility] PlhshuyNTVVJRMBMF7004-23-44 10:50:0063.6[facility] RotpkbrHKTAUXYDNT3513-29-22 10:50:008.9[facility] TTUADHXOVC1281-66-10 10:50:002.3[facility] DvmeuflCYQGUESTNF8974-15-22 10:50:00 Normal (01/23/19 5:50 AM)[facility] OxmifdaTJPIDQRLUV6643-70-35 10:50:00Normal (01/23/19 5:50 AM)[facility] PwxdagaGXVPMSJHZP3435-19-18 10:50:0025.1[facility] ZpplnzkXXCOGAPIDO8883-78-14 10:50:0013.1[facility] PrzxiafMZVFDCVVBP3540-15-88 10:50:24354Exguvgyx HpejvrhCCCZOGBWYS6169-27-15 10:50:007.7[facility] [place] UDUWNLNEAM3577-29-21 10:50:008.6[facility] RhzsrfgPWRSCIIIFA5706-20-94 10:50:00 10.0[facility] VoxxlwxMHHQWGVUQV7049-04-45 10:50:0034.6[facility] HermannHEMATOLOGY 2019-01-23 10:50:0028.7[facility] RtblyiuCZVCZLFVCE5698-81-42 10:50:0087.8[facility] WqelavnIDFUMZQHWM3268-43-12 10:50:00 Test Item Value Reference Range Interpretation Comments MCH (test code = MCH) 30.4 pg 27.0-31.0 [facility] AdjaqemPTIQOXBJZH0666-87-75 10:50:003.27[facility] HermannHEMATOLOGY 2019-01-23 10:50:31783Xshlkftm UfqchphSGRDUSAOQZ1257-41-05 10:50:007.7[facility] IkdqtznBYBFSMMDIB8355-17-84 10:50:008.6[facility] OvpjrstENLLNCBKTI6647-04-65 10:50:0010.0[facility] DfayewzDTDNKBUVDB5263-90-19 10:50:0034.6[facility] CYXDXADVYG9104-32-54 10:50:0028.7[facility] SufenptFWJXOHXZFS0192-51-34 10:50:00 87.8[facility] GsuuuovQKUXNTWXGQ9840-51-21 10:50:00 Test Item Value Reference Range Interpretation Comments MCH (test code = MCH) 30.4 pg 27.0-31.0 [facility] VcmubywDONGNTJVMV5397-52-97 10:50:003.27[facility] HermannCHEM PANEL 2019-01-23 10:50:002.0[facility] HermannCHEM LJULL5241-14-60 10:50:38480Ihnuzjta HermannCHEM ISIDY9033-92-43 10:50:0023[facility] HermannCHEM VHORE1360-84-97 10:50:36286Eurjqebf HermannCHEM BMWKJ1904-96-22 10:50:003.1[facility] HermannCHEM KHNTF8366-68-07 10:50:86715Qyslvjhi HermannCHEM NYJIY2216-19-62 10:50:005 [facility]annCHEM RFHHF9880-94-67 10:50:000.50[facility] HermannCHEM PANEL 2019-01-23 10:50:007.8[facility] HermannCHEM PTWWO3122-02-48 10:50:0083[facility] HermannCHEM QWTPC3523-48-65 10:50:0010.1[facility] SseimtlUTAJWCLYVK7294-84-38 10:50:000.2[facility] BvvizxeZUKXXXWGJO8076-91-77 10:50:000.8[facility] [place] JORXEFWXKD5104-27-04 10:50:005.5[facility] PhuqakjNNUFBYRTYC9134-13-98 10:50:002.2 [facility] ZfcyscuBJDOAHDNMI3300-96-15 10:50:000.1[facility] HermannHEMATOLOGY 2019-01-23 10:50:0063.6[facility] WjfpfykIEFGQERVVI3565-26-11 10:50:008.9[facility] AwqzcdgEMTKXRYBVH3633-21-50 10:50:002.3[facility] ZraskogVWDXJDTLQG8039-34-70 10:50:00Normal (01/23/19 5:50 AM)[facility] AhfeggdJCTTZYBAKU4199-68-24 10:50:00 Normal (01/23/19 5:50 AM)[facility] PnphxjsUGNKIEWTPT6225-76-23 10:50:0025.1[facility] ImomqhhEFXMUJXAFO3193-01-71 10:50:0013.1[facility] HermannCHEM ZDNQB3139-27-65 11:32:002.4[facility] HermannCHEM RLFAD6473-08-17 11:32:002.4[facility] HermannCHEM OHZRA9668-02-54 09:04:003.0[facility] HermannCHEM IAHEL4170-17-13 09:04:003.0 [facility]UR[facility] AND ZIDHR0200-11-02 07:14:00 Test Item Value Reference Range Interpretation Comments UA Spec Grav (test code = UA Spec 1.014 1 Grav) [facility] VHPAF2442-69-13 07:14:00 Test Item Value Reference Range Interpretation Comments UA pH (test code = UA pH) 6.0 1 5.0-8.0 [facility] EJWCT3458-96-57 07:14:00Negative (01/22/19 2:14 AM) [facility] YFRJW4059-73-47 07:14:00Negative *NA*(01/22/19 2:14 AM) [facility] UUSKE0018-48-12 07:14:00Negative *NA*(01/22/19 2:14 AM) [facility] UCXPW2511-67-42 07:14:00Negative *NA*(01/22/19 2:14 AM) [facility] OAXGI6438-18-83 07:14:00Negative (01/22/19 2:14 AM) [facility] ZJRTZ1740-40-81 07:14:00Negative (01/22/19 2:14 AM) [facility] WUVNH6296-75-95 07:14:00Negative (01/22/19 2:14 AM) [facility] YMIVF9632-40-10 07:14:00<1[facility] HNELS7859-61-48 07:14:0025[facility]UR[facility] HMFTP0151-83-92 07:14:002 [facility] ROCEJ0866-39-15 07:14:00Light Yellow *NA*(01/22/19 2:14 AM)[facility] ZSZNH2271-17-99 07:14:00Clear (01/22/19 2:14 AM) [facility] AFWQL3078-66-32 07:14:00 Test Item Value Reference Range Interpretation Comments UA Spec Grav (test code = UA Spec 1.014 1 Grav) [facility] XHNSR8419-68-30 07:14:00 Test Item Value Reference Range Interpretation Comments UA pH (test code = UA pH) 6.0 1 5.0-8.0 [facility] ZMNPX6850-93-19 07:14:00Negative (01/22/19 2:14 AM) [facility] TUMHE4726-64-40 07:14:00Negative *NA*(01/22/19 2:14 AM) [facility] OHQBG6448-98-21 07:14:00Negative *NA*(01/22/19 2:14 AM) [facility] YVHCB6570-76-07 07:14:00Negative *NA*(01/22/19 2:14 AM) [facility] OJXQF6462-54-36 07:14:00Negative (01/22/19 2:14 AM) [facility] FMEJO6518-23-77 07:14:00Negative (01/22/19 2:14 AM) [facility] XIDNP3775-93-46 07:14:00Negative (01/22/19 2:14 AM) [facility] TTEDJ6254-01-94 07:14:00<1[facility] WMLON8026-33-99 07:14:0025[facility] DAFRJ8125-24-87 07:14:002 [facility] ITUGF1932-06-62 07:14:00Light Yellow *NA*(01/22/19 2:14 AM)[facility] MTBTF9914-24-32 07:14:00Clear (01/22/19 2:14 AM) [facility] UmcombsXPAJS9841-74-87 05:16:000.90[facility] SrzhhkqILINI3001-84-09 05:16:000.90[facility] UfzalgeJDRMCVPSJT5506-54-00 05:01:009.9[facility] [place] CORBQXLCWE6452-45-01 05:01:0032.8[facility] WhwatcrJVKHDUSGFP6718-46-13 05:01:00 13.6[facility] TfxiounSHWIKLQVPV0430-10-25 05:01:35692Abwdckki HermannHEMATOLOGY 2019-01-22 05:01:007.3[facility] NeuullbNRTWJSZJPF6073-70-62 05:01:0014.0[facility] MvwujfeHCKAODABEX0744-10-15 05:01:004.85[facility] OpirbtkFFCBNWBYEQ4712-73-80 05:01:0042.7[facility] VhgesimOEWZZVHOSG4058-85-83 05:01:00 Test Item Value Reference Range Interpretation Comments MCH (test code = MCH) 29.0 pg 27.0-31.0 [facility] JcksgekUGGIUKMMXU8371-94-58 05:01:0088.2[facility] HermannHEMATOLOGY 2019-01-22 05:01:00 Test Item Value Reference Range Interpretation Comments INR (test code = INR) 0.96 1 0.85-1.17 [facility] UobtqpvLATGLOATWC4615-24-33 05:01:00 Test Item Value Reference Range Interpretation Comments PT (test code = PT) 12.6 s 12.0-14.7 [facility] XzekserHUHDSTBRUT1204-77-18 05:01:00 Test Item Value Reference Range Interpretation Comments PTT (test code = PTT) 25.9 s 22.9-35.8 [facility] GHJQGBQ1211-24-05 05:01:00Negative (01/22/19 12:01 AM) [facility] HermannCARDIAC LQMGWID8104-10-75 05:01:00<0.02[facility] [place] CARDIAC OUBKMUA4590-69-43 05:01:0049[facility] HermannCHEM PCXHI5282-00-97 05:01:000.6[facility] HermannCHEM LLRMN3817-80-19 05:01:29197Dmmscvjp HermannCHEM UFNOU6678-15-43 05:01:004.0[facility] HermannCHEM LUUJV0208-15-85 05:01:0017 [facility]annCHEM ESACL4126-04-73 05:01:0025[facility] HermannCHEM PANEL 2019-01-22 05:01:008.1[facility] HermannCHEM NOMPV2095-56-35 05:01:00 Test Item Value Reference Range Interpretation Comments B/C Ratio (test code = B/C Ratio) 20 1 6-25 [facility]annCHEM CEYBO9837-44-38 05:01:00 Test Item Value Reference Range Interpretation Comments A/G Ratio (test code = A/G Ratio) 1.0 1 0.7-1.6 [facility]annCHEM YFYEA2967-64-69 05:01:004.1[facility] HermannCHEM PANEL 2019-01-22 05:01:006.90[facility] WujbxsxPHKPVRCZKZGPD0778-68-87 05:01:00Negative *NA*(01/22/19 12:01 AM)[facility] AygazycFNPRSGBPUE3554-11-01 05:01:000.1[facility] IplmhldNTCYVHSKYR0470-94-03 05:01:000.7[facility] OcayadjCLZQNODLOV4754-40-85 05:01:000.0[facility] ShtmvcdWIMPXKVVTF0548-31-28 05:01:000.0[facility] KYIULTMYQQ5485-30-01 05:01:000.9[facility] TyymnvtWROKPXFWSC3543-67-93 05:01:008.6 [facility] OnqsfrxEJJXYUNIKS0354-64-40 05:01:000.6[facility] HermannHEMATOLOGY 2019-01-22 05:01:0086.5[facility] NnvgqblQGAAIJAAVZ2059-99-73 05:01:005.7[facility] DrudqlmDSAQJVTPEG6291-28-58 05:01:006.9[facility] NjwwqceVLIPHTDBEX4324-17-28 05:01:009.9[facility] PqffqulKZJUPONXPR9276-45-07 05:01:0032.8[facility] HGGKZGVWRL7548-38-61 05:01:0013.6[facility] AraqllcUIKSDSQWIW2909-51-98 05:01:00 443[facility] UimnfcrACOFJWHJCP7506-02-85 05:01:007.3[facility]annHEMATOLOGY 2019-01-22 05:01:0014.0[facility] NikojycUNAGHCYFXL9855-63-39 05:01:004.85[facility] MhcmzdtJKVZOCWZEH0586-65-24 05:01:0042.7[facility] AnxwkrxMPZFIWPAXR2678-18-11 05:01:00 Test Item Value Reference Range Interpretation Comments MCH (test code = MCH) 29.0 pg 27.0-31.0 [facility] VlrjlsxVQSAGLSGCO2176-12-31 05:01:0088.2[facility] HermannHEMATOLOGY 2019-01-22 05:01:00 Test Item Value Reference Range Interpretation Comments INR (test code = INR) 0.96 1 0.85-1.17 [facility] ImvtpliYNBVUBGQXO7942-42-18 05:01:00 Test Item Value Reference Range Interpretation Comments PT (test code = PT) 12.6 s 12.0-14.7 [facility] PtjmdkxZYSRFKEDKU3009-28-18 05:01:00 Test Item Value Reference Range Interpretation Comments PTT (test code = PTT) 25.9 s 22.9-35.8 [facility] LEED[facility]NP5152[facility]17 05:01:00Negative (01/22/19 12:01 AM) [facility] HermannCARDIAC GQLLFZR4856-29-27 05:01:00<0.02[facility] [place] CARDIAC XICEYFG9074-82-57 05:01:0049[facility]annCHEM ZPYQT8647-58-61 05:01:000.6[facility]annCHEM TUAWL2405-52-22 05:01:55833Fvjtbqop HermannCHEM WUIWV9492-92-64 05:01:004.0[facility]annCHE[facility] HTBOE8322-47-70 05:01:0017 [facility] [id number] 05:01:0025[facility]annCHEM PANEL 2019-01-22 05:01:008.1[facility]annCHE[facility] [id number] 05:01:00 Test Item Value Reference Range Interpretation Comments B/C Ratio (test code = B/C Ratio) 20 1 6-25 [facility] HermannCHEM [id number] 05:01:00 Test Item Value Reference Range Interpretation Comments A/G Ratio (test code = A/G Ratio) 1.0 1 0.7-1.6 [facility] [id number] 05:01:004.1[facility]annCHEM PANEL 2019-01-22 05:01:006.90[facility] PmlcgkxBPEMDQWZXQSCD1406-22-26 05:01:00Negative *NA*(01/22/19 12:01 AM)[facility] WhadlnjBDKKPGTXLS1042-47-82 05:01:000.1[facility] HykxeknSMWJCIOGWV9416-13-43 05:01:000.7[facility] KesndeyIYNPCGNLVD3153-59-87 05:01:000.0[facility] QulrohvMCKCQXTZMW3239-98-44 05:01:000.0[facility] Yonis PVMWIPVBHQ0812-43-02 05:01:000.9[facility] XnnagdsIPDJHYCLCJ7678-70-78 05:01:008.6 [facility] YxvygyyBWGLGJMMEE9215-45-77 05:01:000.6[facility]annHEMATOLOGY 2019-01-22 05:01:0086.5[facility] WrwtmvmVMTQSFUHRT6397-36-24 05:01:005.7[facility] DsxmjcxVXABDEYRYK2634-28-07 05:01:006.9[facility] VpgwktdQRL0W5211-89-57 14:36:00 Test Item Value Reference Range Interpretation [...] 0.00-0.01 N code = ETOHU) Comprehensive Metabolic Rynmi3304-84-69 14:36:00 Test Item Value Reference Range Interpretation [...] the [employer],http :[email or web address] ep.nih.gov Urinalysis Abpgdqmc9482-83-31 14:32:00 Test Item Value Reference Range Interpretation Comments Color (test code = COLOR) Yellow Yellow,Straw,Pl N yellow Clarity (test code = Clear Clear N CLAR) Specific [place] (test 1.024 1.001-1.035 N code = SPGR) [...] code = Few /HPF BACT) CBC with Pekrmlgperlm2990-17-03 14:21:00 Test Item Value Reference Range Interpretation [...] code = ALYMPH) 3.0 K/cumm 0.5-4.6 N [place] Abs (test code = AMONO) 0.5 K/cumm 0.0-1.2 N Eos Abs (test code = AEOS) 0.19 K/cumm 0.00-0.74 N Baso Abs (test code = ABASO) 0.1 K/cumm 0.00-0.21 N
--- NOTE | 2021-09-24 21:02 | EDPHYS ---
Physician Documentation [facility] Name: Tiffany Quinn Age: 51 yrs Sex: Female : 1970 Arrival Date: 09/24/2021 Time: 19:16 Bed Waiting Private MD: ED Physician Goran Bledsoe HPI: 09/24 21:13 This 51 yrs old Female presents to ER via Ambulatory with complaints of Anxiety. jr8 21:13 Is a 51-year-old female with a history of anxiety bipolar disorder there is been to the [facility] emergency room multiple times over the past week for similar complaints. Patient was seen last night hydrated after she did another round of methamphetamines. Patient is a chronic drug abuser. Patient came tonight for mild anxiety. Stated that she wanted to stay at another hotel tonight instead with her mother and asked if that would be safe. Patient stated that she just wanted us to make sure she was okay.. Historical: - Allergies: 19:51 Pepcid; vg1 19:51 Toradol; vg1 - PMHx: 19:51 ADD; Anxiety; Bipolar disorder; vg1 - Immunization history:: Client reports receiving the 2nd dose of the Covid vaccine. - Social history:: Smoking status: Patient denies any tobacco usage or history of. Patient uses street drugs, Methamphetamine (Meth). ROS: 21:13 Eyes: Negative for injury, pain, redness, and discharge, ENT: Negative for injury, jr8 pain, and discharge, Neck: Negative for injury, pain, and swelling, Cardiovascular: Negative for chest pain, palpitations, and edema, Respiratory: Negative for shortness of breath, cough, wheezing, and pleuritic chest pain, Abdomen/GI: Negative for abdominal pain, nausea, vomiting, diarrhea, and constipation, Back: Negative for injury and pain, MS/Extremity: Negative for injury and deformity, Skin: Negative for injury, rash, and discoloration, Neuro: Negative for headache, weakness, numbness, tingling, and seizure. 21:13 Psych: Positive for anxiety. Exam: 21:13 Constitutional: This is a well developed, well nourished patient who is awake, alert, jr and in no acute distress. Cardiovascular: Regular rate and rhythm with a normal S1 and S2. No gallops, murmurs, or rubs. Normal PMI, no JVD. No pulse deficits. Respiratory: Lungs have equal breath sounds bilaterally, clear to auscultation and percussion. No rales, rhonchi or wheezes noted. No increased work of breathing, no retractions or nasal flaring. Abdomen/GI: Soft, non-tender, with normal bowel sounds. No distension or tympany. No guarding or rebound. No evidence of tenderness throughout. Skin: Warm, dry with normal turgor. Normal color with no rashes, no lesions, and no evidence of cellulitis. MS/ Extremity: Pulses equal, no cyanosis. Neurovascular intact. Full, normal range of motion. Neuro: Awake and alert, GCS 15, oriented to person, place, time, and situation. Cranial nerves II-XII grossly intact. Motor strength 5/5 in all extremities. Sensory grossly intact. Cerebellar exam normal. Normal gait. 21:13 Psych: Behavior/mood is pleasant, cooperative, anxious, Affect is calm, Oriented to person, place, time, Patient has no thoughts/intents to harm self or others. Judgement / Insight is normal. Memory is normal. Delusions/hallucinations are not present. Vital Signs: 19:47 BP 160 / 87; Pulse 103; Resp 22; Temp 98.2; Pulse Ox 100% ; Weight 71.67 kg; Height 5 vg1 ft. 3 in. (160.02 cm); Pain 0/10; 19:47 Body Mass Index 27.99 (71.67 kg, 160.02 cm) vg1 MDM: 21:01 Patient medically screened. [facility] 21:13 Data reviewed: vital signs, nurses notes, and as a result, I will discharge patient. [facility] Data interpreted: Pulse oximetry: on room air is 100 %. Interpretation: normal. Counseling: I had a detailed discussion with the patient and/or guardian regarding: the historical points, exam findings, and any diagnostic results supporting the discharge/admit diagnosis, the need for outpatient follow up, a psychiatrist, to return to the emergency department if symptoms worsen or persist or if there are any questions or concerns that arise at home. ED course: Discussed with patient that she needs to continue to take her antianxiety medications and stay away from methamphetamines. If she were to get worse or need anything else that she can come back for further evaluation but otherwise she is hemodynamically stable and there is no emergent medical condition based on physical exam. Patient is good with this and left.. Administered Medications: No medications were administered Disposition: 21:24 Co-signature as Attending Physician, Goran Bledsoe MD. [email or web address] 21:36 Co-signature as Attending Physician, Goran Bledsoe MD. [email or web address] Disposition Summary: 09/24/21 21:01 Discharge Ordered Location: Home jr8 Problem: new jr8 Symptoms: have improved jr8 Condition: Stable jr8 Diagnosis - Anxiety disorder, unspecified jr8 Followup: jr8 - With: Private Physician - When: Tomorrow - Reason: Recheck today's complaints, Continuance of care, Re-evaluation by your physician Discharge Instructions: - Discharge Summary Sheet jr8 - Generalized Anxiety Disorder, Adult jr8 Forms: - Medication Reconciliation Form jr8 - Thank You Letter jr8 - Antibiotic Education jr8 - Prescription Opioid Use jr8 Signatures: Goran Bledsoe MD MD pkl Guanako Palomino PA PA jr8 Ibeth Charles, RN RN vg1
--- NOTE | 2021-09-24 21:02 | ER ---
Nurse's Notes [facility] Name: Tiffany Quinn Age: 51 yrs Sex: Female : 1970 Arrival Date: 09/24/2021 Time: 19:16 Bed Waiting Private MD: Diagnosis: Anxiety disorder, unspecified Presentation: 09/24 19:47 Chief complaint: Patient states: "someone may be plaing with a doll right now people vg1 are making fun of me, I dont know if that has anything to do with my scrotum, but Im feeling gassy. I did not use meth today but I did yesterday. 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 Coronavirus screen: Vaccine status: Patient reports receiving the 2nd dose of the covid vaccine. Ebola Screen: Patient negative for fever greater than or equal to 101.5 degrees Fahrenheit, and additional compatible Ebola Virus Disease symptoms. Initial Sepsis Screen: Does the patient meet any 2 criteria? RR > 20 per min. HR > 90 bpm. Initial Sepsis Screen: Does the patient have a suspected source of infection?. Risk Assessment: Do you want to hurt yourself or someone else? Patient reports no desire to harm self or others. Onset of symptoms was September 24, 2021. 19:47 Method Of Arrival: Ambulatory vg1 19:47 Acuity: MANUEL 3 vg1 Triage Assessment: 19:51 General: Appears in no apparent distress. uncomfortable, Behavior is cooperative, vg1 anxious. Pain: Denies pain. Respiratory: Reports shortness of breath Onset: The symptoms/episode began/occurred today, the patient has mild shortness of breath. Historical: - Allergies: 19:51 Pepcid; vg1 19:51 Toradol; vg1 - PMHx: 19:51 ADD; Anxiety; Bipolar disorder; vg1 - Immunization history:: Client reports receiving the 2nd dose of the Covid vaccine. - Social history:: Smoking status: Patient denies any tobacco usage or history of. Patient uses street drugs, Methamphetamine (Meth). Assessment: 21:15 Reassessment: Guanako WHITTAKER spoke to pt and instructed her on discharge pt left the ED.bb Vital Signs: 19:47 BP 160 / 87; Pulse 103; Resp 22; Temp 98.2; Pulse Ox 100% ; Weight 71.67 kg; Height 5 vg1 ft. 3 in. (160.02 cm); Pain 0/10; 19:47 Body Mass Index 27.99 (71.67 kg, 160.02 cm) vg1 ED Course: 19:16 Patient arrived in ED. bp1 19:51 Triage completed. vg1 19:51 Arm band placed on. vg1 20:59 Guanako Palomino PA is PHCP. jr8 20:59 Goran Bledsoe MD is Attending Physician. jr8 Administered Medications: No medications were administered Outcome: 21:01 Discharge ordered by . jr8 21:16 Patient left the ED. bb Signatures: Keena Lazaro, RN RN bb Guanako Palomino PA PA jr8 Ibeth Charles RN RN vg1 Sofia Urban bp1
[2021-09-24 21:25] VITALS: BP 160/87; TEMP 98.2; O2SAT 100
== END 2021-09-24 21:16 | disposition home or self-care (01) ==
LOC: ER 19:14
DX: F41.9 Anxiety disorder, unspecified (principal); F31.9 Bipolar disorder, unspecified; F17.210 Nicotine dependence, cigarettes, uncomplicated; Z88.5 Allergy status to narcotic agent; Z88.8 Allergy status to other drugs, medicaments and biological substances
CPT/HCPCS: 99281

== ENCOUNTER 2021-09-25 07:04 | Emergency (ER) | payer OTHER ==
--- OUTSIDE RECORDS SUMMARY | 2021-09-25 07:10 | XMS REPORT | Continuity of Care Document ---
:1970 Author Organization [facility] t Address [address] [place] [address] Care Team Providers Name Role Phone UNKNOWN [...] Policy Number Effective Date Expiration Date S [facility] OF [place] - [id number] 2020 [place] 00:00:00 (MEDICARE REPLACEMENT/ADVANT AGE - [...] 00 GASTROENTE RITIS AND COLITIS Active 01/21/2019 [facility] Irregular Irregular Disease Active Uni vers menstrual menstrual 8-15 ity of cycle cycle 00:00: [address] Skin Skin Disease Active Univers lesion lesion 8-15 ity of 00:00: [address] Psychiatri Psychiatri Disease Active U nivers c disorder c disorder 8-15 it y of 00:00: [address] Well woman Well woman Disease Active U nivers exam with exam with 8-15 ity of routine routine 00:00: [place] gynecologi gynecologi 00 Me dical nicky exam nicky exam Branch INFECTIOUS Diagnosis Active 2019-02-06 Memoria GASTROENTE 08:58:00 l RITIS AND Yonis COLITIS, INFECTIOUS GASTROENTE RITIS AND COLITIS, Active [facility] Allergies, Adverse Reactions, Alerts Allergy Allergy Status Severity Reaction(s) Onset Inactive Treating Comm ents Source Name Type Date Date Clinician NO KNOWN Drug Active Univers ALLERGIE Class ity of S [facility] Phenerga Phenerga Active [place] winifred [place] Social History Social Habit Start Date Stop Date Quantity Comments Source History of Cigarette Smoker Universi ty of tobacco use [facility] Tobacco Comment 2-3 cigs a day [facility] Exposure to Not sure [place] of SARS-CoV-2 [facility] (event) [place] Tobacco use and 2016-06-08 2016-06-08 [facility]00 00:00:00 [facility] Alcohol intake 2016-06-08 2016-06-08 0 /d University of 00:00:00 00:00:00 [facility] Sex Assigned At [birth year] Universit y of 00:00:00 00:00:00 [facility] Smoking Status Start Date Stop Date Source Social History 2019-01-22 05:00:12 [facility] Her urena Current some day smoker 2016-06-08 00:00:00 [facility] Medications Ordered Filled Start Stop Current Ordering Indication Dosage Frequency Signature Comments Components Source Medication Medication Date Date Medication? Clinician (SIG) Name Name cefTRIAXone 2020-10- No 1000mg 1,000 mg, Univers (ROCEPHIN) 17 11-17 IV ity of 1,000 mg in 08:30: 08:01 [place], [place] NaCl 0.9% 00 :00 ONCE, 1 [...] 09/09/21 at 2330, RANDA amoxicillin 2020-10 Yes [id number] 500mg Take 1 Univers 500 mg 11-10 capsule by ity of capsule 00:00: mouth 3 [place] 00 (three) Medical times Branch daily. ondansetron 2019-10- No 4mg 4 mg, [facility] ers (ZOFRAN-ODT 12-01 Oral, ity of ) 15:15: 14:16 ONCE, 1 [place] disintegrat 00 :00 dose, Mon Med ical ing tablet 09/30/20 at [facility] 4 mg 0915, Routine ondansetron 2019-10- No 4mg 4 mg, [facility] ers (ZOFRAN-ODT 12-01- Oral, ity of ) 14:30: 13:32 ONCE, 1 [place] disintegrat 00 :00 dose, Mon Med ical ing tablet 09/30/20 at [facility] 4 mg 0830, Routine ondansetron 2019-10 Yes [id number] 4mg Take 1 Univers 4 mg 2-07 tablet by ity of disintegrat 00:00: mouth [place] ing tablet 00 every 8 Medica l (eight) Branch hours as needed for Nausea and Vomiting (N/V). ondansetron 2019-10 Yes [id number] 4mg Take 1 Univers 4 mg 2-07 tablet by ity of disintegrat 00:00: mouth [place] ing tablet 00 every 8 Medica l (eight) Branch hours as needed for Nausea and Vomiting (N/V). ondansetron 2019-10 Yes [id number] 4mg Take 1 Univers 4 mg 2-07 tablet by ity of disintegrat 00:00: mouth [place] ing tablet 00 every 8 Medica l (eight) Branch hours as needed for Nausea and Vomiting (N/V). ondansetron 2019-10 Yes [id number] 4mg Take 1 Univers 4 mg 2-07 tablet by ity of disintegrat 00:00: mouth [place] ing tablet 00 every 8 Medica l (eight) Branch hours as needed for Nausea and Vomiting (N/V). ciprofloxac 2019 Yes 500 mg = 1 Memoria in 500 mg 4-04 tab, PO, l oral tablet 17:35: [id number], X [place] 00 4 day, # 8 tab, 0 [...] 4-04 tab, PO, l oral tablet 17:35: [id number], X [place] 00 4 day, # 8 tab, 0 Refill(s) Ondansetron 2018- Yes 4 mg = 1 Me moria 4 MG Oral 4-04 tab, PO, l Tablet 17:35: Q6H, PRN [place] [Zofran] 00 Nausea/Vom iting, # 20 tab, [...] s with feeding tube less than 14 Sudanese (Dobhoff, J-tube etc) and pediatric and patients. [...] s with feeding tube less than 14 Sudanese (Dobhoff, J-tube etc) and pediatric and patients. Strattera No 0.5 mg/kg, Me moria 01-24 Route: PO, l 14:00: QAM, [place] Dosing Weight 75, kg, Start date: 01/24/19 [...] ia 4- (Same As: l 18:00: KlonoPIN) [place] Flagyl No Notes: Memoria 4- (Same as: l 15:00: Flagyl) Yonis 00 Take with food/ avoid alcohol Cipro No Notes: May Memori a - interfere l 15:00: w/enteral Yonis 00 feedings - Take 1 hr before or 2 hrs after antacids, dairy pdt & minerals. On empty stomach. Flagyl No Notes: Memoria 4- (Same as: l 15:00: Flagyl) [place] 00 Take with food/ avoid alcohol Cipro No Notes: February Memori a 4- interfere l 15:00: w/enteral [place] 00 feedings - Take 1 hr before [...] PO, ONCE, l mEq oral 14:20: 0 [place] tablet, 00 Refill(s) extended release Metronidazo No 500 mg, Mem oria le 500 MG 4-01 PO, l Oral Tablet 14:20: [id number], 0 H ermann [Flagyl] 00 Refill(s) Ciprofloxac No 500 mg, Mem oria in 500 MG 01 PO, l Oral Tablet 14:20: [id number], 0 [place] [Cipro] 00 Refill(s) potassium Yes 40 mEq, Memor ia chloride 20 -01 PO, ONCE, l mEq oral 14:20: 0 [place] tablet, 00 Refill(s) extended release Metronidazo No 500 mg, Mem oria le 500 MG 4-01 PO, l Oral Tablet 14:20: [id number], 0 H ermann [Flagyl] 00 Refill(s) Ciprofloxac No 500 mg, Mem oria in 500 MG 4-01 PO, l Oral Tablet 14:20: [id number], 0 [place] [Cipro] 00 Refill(s) Potassium No Notes: Memori [...] s with feeding tube less than 14 Sudanese (Dobhoff, J-tube etc) and pediatric and patients. [...] s with feeding tube less than 14 Sudanese (Dobhoff, J-tube etc) and pediatric and patients. [...] tab, PO, l Tablet 21:08: BID, 0 [place] [Risperdal] 00 Refill(s) Strattera Yes 0.5 mg/kg, [...] tab, PO, l Tablet 21:08: BID, 0 [place] [Risperdal] 00 Refill(s) Zosyn No Notes: Memoria [...] oria 3-31 to exceed l 15:03: 400mg/day. [place] 00 (Same As: Ultram) Tramadol No Notes: [...] 01-22 Route: IM, l 09:47: Drug form: [place] 00 PDR/INJ, PRN, Dosing Weight 75.994, kg, [...] Memoria 3-31 (Same as: l 08:56: Zofran) [place] MEDICATION WASTE Product Size: 4 mg Product [...] moria IV - 1,000 l 05:44: ml/hr, [place] 00 Infuse Over: 1 hr, Route: IV, [...] 0.9% 3-31 Same as: l 04:52: BD [place] Posiflush Sterile NS (Bolus) No 1,000 mL, Me moria IV 3-31 1,000 l 04:51: ml/hr, Yonis 00 Infuse Over: 1 hr, Route: IV, 1,000, Drug form: INJ, ONCE, Priority: STAT, Dosing Weight 75.994 kg, Start date: 01/21/19 23:51:00 CDT, Stop date: 01/21/19 23:51:00 CDT NS (Bolus) No 1,000 mL, Me moria IV 01-22 1,000 l 04:51: ml/hr, [place] 00 Infuse Over: 1 hr, Route: IV, [...] by ity of mg tablet 14:02: mouth [place] [address] every 6 Medical (six) Branch hours as needed. CLONAZEPAM 2016-0 Yes Take by Uni vers (KLONOPIN 8-15 mouth. ity of ORAL) 14:02: [address] Branch CITALOPRAM 2016-0 Yes Take by Uni vers HYDROBROMID 8-15 mouth. ity of E 14:02: [place] (CITALOPRAM 27 Medical ORAL) Branch ibuprofen 2016-0 Yes 200mg Take 200 Uni vers (ADVIL) 200 8-15 mg by ity of mg tablet 14:02: mouth [place] [address] every 6 Medical (six) Branch hours as needed. CLONAZEPAM 2016-0 Yes Take by Uni vers (KLONOPIN 8-15 mouth. ity of ORAL) 14:02: [address] Branch CITALOPRAM 2016-0 Yes Take by Uni vers HYDROBROMID 8-15 mouth. ity of E 14:02: [place] (CITALOPRAM 27 Medical ORAL) Branch ibuprofen 2016-0 Yes 200mg Take 200 Uni vers (ADVIL) 200 8-15 mg by ity of mg tablet 14:02: mouth [place] [address] every 6 Medical (six) Branch hours as needed. CLONAZEPAM 2016-0 Yes Take by Uni vers (KLONOPIN 8-15 mouth. ity of ORAL) 14:02: [place] [address] Medical Branch CITALOPRAM 2016-0 Yes Take by [...] 2021-09-10 08:01:00 138 mm[Hg] Univer sity of RUST Diastolic blood 2021-09-10 08:01:00 97 mm[Hg] Unive rsity of RUST Heart rate 2021-09-10 08:01:00 87 /min [facility] Respiratory rate 2021-09-10 08:01:00 20 /min [facility] saturation in 2021-09-10 08:01:00 98 /min University of Arterial blood by [place] [facility] Pulse oximetry Branch Body temperature 2021-09-10 04:28:51 37.17 Ruthann [facility] Body height 2021-09-10 04:26:00 154.9 cm [facility] Body weight 2021-09-10 04:26:00 81.647 kg [facility] BMI 2021-09-10 04:26:00 34.01 kg/m2 [facility] Systolic blood 2021-09-09 20:06:00 150 mm[Hg] Univer sity of [place] Diastolic blood 2021-09-09 20:06:00 89 mm[Hg] Unive rsity of [place] Heart rate 2021-09-09 20:06:00 108 /min [facility] Body temperature 2021-09-09 20:06:00 37.22 Ruthann [facility] Respiratory rate 2021-09-09 20:06:00 18 /min [facility] Oxygen saturation in 2021-09-09 20:06:00 99 /min University of Arterial blood by [employer] nicky Pulse oximetry Branch Body weight 2021-09-09 [...] 98 /min University of Arterial blood by [facility] nicky Pulse oximetry Branch Body temperature 2020-09-30 [...] 98 /min University of Arterial blood by [facility] nicky Pulse oximetry Branch Body temperature 2020-09-30 [...] Systolic (mm Hg) 2019-01-28 01:16:00 Estrada rial [place] Diastolic (mm Hg) 2019-01-28 01:16:00 Mem orial [place] Heart Rate 2019-01-28 01:16:00 [facility] [place] Respitory Rate 2019-01-28 01:16:00 Memori al [place] Systolic (mm Hg) 2019-01-27 20:42:00 Estrada rial [place] Diastolic (mm Hg) 2019-01-27 20:42:00 Mem orial [place] Heart Rate 2019-01-27 20:42:00 [facility] [place] Respitory Rate 2019-01-27 20:42:00 Memori al [place] Temperature Oral (F) 2019-01-27 20:42:00 98.5 F Memorial Yonis Systolic (mm Hg) 2019-01-27 17:00:00 Estrada rial [place] Diastolic (mm Hg) 2019-01-27 17:00:00 Mem orial [place] Temperature Oral (F) 2019-01-27 17:00:00 98.5 F Memorial Yonis Heart Rate 2019-01-27 17:00:00 Memorial [place] Respitory Rate 2019-01-27 [facility] Height 2019-01-22 14:35:00 157.48 cm [facility] BMI Calculated 2019-01-22 14:35:00 [facility] [place] Weight 2019-01-22 14:35:00 [facility] [place] Weight 2019-01-22 04:34:[facility] Procedure Date / Time Performing Clinician Source Performed URINALYSIS 2021-09-10 06:03:00 Neena Bradford [facility] URINE DRUG (IMMUNOASSAY) 2021-09-10 06:03:00 Neena Bradford [facility] SCREEN W/O REFLEX XR CHEST 1 VW 2021-09-10 04:57:30 Neena Bradford [facility] CREATINE KINASE 2021-09-10 04:39:00 Neena Bradford [facility] MAGNESIUM 2021-09-10 04:39:00 Neena Bradford [facility] TROPONIN I 2021-09-10 04:39:00 Neena Bradford [facility] COMP. METABOLIC PANEL 2021-09-10 04:39:00 Neena Bradford [facility] ([id number]) Medical [place] CBC WITH DIFF 2021-09-10 04:39:00 Neena Bradford [facility] PROTHROMBIN TIME / INR 2021-09-10 04:39:00 Neena Bradford [facility] ACTIVATED PARTIAL 2021-09-10 04:39:00 Neena Bradford [facility] THRMPLAS [facility] N-TERMINAL PRO-BNP 2021-09-10 04:39:00 Neena Bradford [facility] COVID-19 (ID NOW RAPID 2021-09-10 04:39:00 Neena Bradford [facility] TESTING) Medical Branch TROPONIN I 2021-09-09 21:49:00 [facility] COMP. METABOLIC PANEL 2021-09-09 21:49:00 [facility] ([id number]) Medical Branch LITHIUM 2021-09-09 21:49:00 [facility] CBC WITH DIFF 2021-09-09 21:49:00 [facility] CONSENT/REFUSAL FOR 2021-09-09 19:51:22 Doctor Unassigned, No Un [facility] DIAGNOSIS AND TREATMENT Name Medical Branch URINALYSIS 2020-09-30 13:27:00 [place] [facility] ADC,CLC OR LCC ONLY - 2020-09-30 13:27:00 LuzerneChuy [facility] INFLUENZA A & B DIRECT Medical B ranch ANTIGEN COVID-19 (ID NOW RAPID 2020-09-30 13:27:00 [facility] TESTING) Medical Branch Encounters Start End Encounter Admission Attending Care Care Encounter Source Date/Time Date/Time Type Type Clinicians Facility Department ID 2021-09-07 Outpatient Humaira-Saraiayo VFP VFP [id number] [facility] 13:23:42 _A_ [id number] Family Practic e 2019-01-[address] [facility] MED [id number] [facility] W 04:39:00 2021-09-09 2021-09-10 Emergency Sanchez [facility] [id number] Univers 22:20:00 03:02:00 Neena WALSH [id number] i ty of [place] 4.2.7.2.686 [facility] [id number] [address] 2021-09-09 2021-09-10 Emergency [facility] [id number] Univers 22:20:00 03:02:00 NEENA cherrie [facility] 2021-09-09 2021-09-10 Emergency [facility] [id number] Univers 22:20:00 03:02:00 NEENA tubbs [facility] 2021-09-09 2021-09-09 Emergency Julia [facility] [id number] Univers 14:07:00 17:35:00 Luanne GOVEACHEN [id number] i ty of [place] 4.2.7.2.686 [facility] [id number] [address] 2021-09-09 2021-09-09 Orders Doctor BELKYS [id number] Univers 00:00:00 00:00:00 Only Unassigned, LANA 350.1.13.10 ity of [facility] 4.2.7.2.686 [facility] [id number] [address] 2020-09-30 2020-09-30 [facility] [id number] Univers 07:22:00 08:18:00 Chuy Goveaton 350.1.13.10 i ty of [place] 4.2.7.2.686 [facility] [id number] [address] 2020-09-30 2020-09-30 Emergency [facility] [id number] 07:22:00 08:18:00 Chuy Walsh 350.1.13.10 [place] 4.2.7.2.686 [place] [id number] 2020-09-30 2020-09-30 Emergency L[facility] [id number] Univers 07:22:00 07:22:00 CHUY tubbs [facility] 2020-04-05 2020-04-05 Outpatient Bernadine [facility] [id number] [facility] 05:44:00 05:44:00 _A_ [id number] Family Practic e 2020-04-05 2020-04-05 Outpatient Humaira-Alekso VFP VFP [id number] [facility] 05:44:00 05:44:00 _A_AH [id number] Family Practic e 2020-04-05 2020-04-05 Outpatient Humaira-Alekso VFP VFP [id number] [facility] 05:44:00 05:44:00 _A_AH [id number] Family Practic e 2020-03-04 2020-03-14 Inpatient 3 Ronni Eldridge [facility] PSY [id number] 15:38:00 15:25:00 Chente [facility] 2019-12-13 2019-12-13 Outpatient Humaira-Alekso VFP VFP [id number] [facility] 07:22:00 07:22:00 _A_AH [id number] Family Practic e 2019-01-22 2019-01-28 Inpatient [facility] [id number] Memoria 04:33:00 04:40:00 martin [place] 00 l [facility] 2018-02-21 2018-02-20 Inpatient E [facility] [id number] [id number] 14:48:00 13:18:00 [facility] Results Test Description Test Time Test Comments Results Result Comments Source TROPONIN I 2021-09-10 05:26:53 Test Item Value Reference Range Interpretation Comme nts TROPONIN I (test code = 0.003 ng/mL See_Comment [Au tomated message] The 7646327712) system which ge nerated this result tra [...] biotin. Lab Interpretation Normal (test code = 89693-6) [facility] [id number] 05:24:16 Test Item Value Reference Range Interpretation Comments NT-proBNP (test code 35 pg/mL See_Comment [Autom ated = 8734792240) message] The system which generated this result transmitted reference range : <=125. The reference range was not used to interpret this result as normal/abnormal . PERRY (test code = PERRY) Biotin has been reported to cause a negative bias, interpret results relative to patient's use of biotin. Lab Interpretation Normal (test code = 34717-2) [facility]2021-11-17 05:16:51 Test Item Value Reference Range Interpretation Comments MAGNESIUM (test code = 5037872012) 1.8 mg/dL 1.7-2.4 Lab Interpretation (test code = Normal 28060-4) [facility] METABOLIC PANEL ([id number])2021-09-10 05:16:31 Test Item Value Reference Range Interpretation Comments NA (test code = 139 mmol/L 135-145 8443787529) K (test code = 4.0 mmol/L 3.5-5.0 0987341540) CL (test code = 108 mmol/L 98-108 4221109104) CO2 TOTAL (test code 25 mmol/L 23-31 = 6715068861) AGAP (test code = 2-16 3920235935) BUN (test code = 14 mg/dL 7-23 5948664369) GLUCOSE (test code = 88 mg/dL 70-110 9634998796) CREATININE (test code 0.89 mg/dL 0.50-1.04 = 0616453020) TOTAL BILI (test code 0.5 mg/dL 0.1-1.1 = 2106838445) CALCIUM (test code = 10.3 mg/dL 8.6-10.6 1119905442) T PROTEIN (test code 6.9 g/dL 6.3-8.2 = 4616399351) ALBUMIN (test code = 4.3 g/dL 3.5-5.0 4380284195) ALK PHOS (test code = 72 U/L 34-122 5417129269) ALTv (test code = 17 U/L 5-35 1742-6) AST(SGOT) (test code 29 U/L 13-40 = 7737392629) eGFR (test code = mL/min/1.73m2 3634896540) PERRY (test code = PERRY) Association of [...] imaging tests). [facility]AT[facility] [id number] 05:16:16 Test Item Value Reference Range Interpretation Comments CK (test code = 3307738519) 267 U/L 33-194 H Lab Interpretation (test code = Abnormal 29930-1) [facility] THRMPLAS [id number] 05:05:32 Test Item Value Reference Range Interpretation Comments APTT Patient (test See_Comment [Automat ed code = 3173-2) message] The system which generated this result transmitted reference range : 23 - 38 Seconds . The reference range was not used to interpr et this result as normal/abnormal . PERRY (test code = PERRY) The [facility] patient population mean normal value for aPTT is 30 seconds. Lab Interpretation Normal (test code = 45627-6) [facility] HospitalPROTHROMBIN TIME / [id number] 05:03:30 Test Item Value Reference Range Interpretation [...] tions. Lab Interpretation (test Normal code = 97672-3) [facility] WITH [id number] 04:57:13 Test Item Value Reference Range Interpretation Comments WBC (test code = See_Comment [Automated 7790-2) message] The sy stem which generated this result transmitted reference range : 4.30 - 11.10 10*3/?L. The reference range was not used to interpret this result as normal/abnormal . RBC (test code = See_Comment [Automated 639-8) message] The sy stem which generated this [...] RDW-SD (test code = 41.2 fL 39.0-49.9 58184-1) RDW-CV (test code = 13.0 % 12.0-15.5 788-0) PLT (test code = See_Comment H [Automated 177-3) message] The sy stem which generated this result transmitted reference range : 166 - 358 10*3/ ?L. The reference r katie was not used to interpret this result as normal/abnormal . MPV (test code = 9.6 fL 9.5-12.9 62824-8) NRBC/100 WBC (test See_Comment [Automat ed code = 8202916043) message] The system which generated this result transmitted reference range : 0.0 - 10.0 /100 WBCs. The refer ence range was not u sed to interpret th is result as normal/abnormal . NRBC x10^3 (test code <0.01 See_Comment [Auto mated = 6935636299) message] The s ystem which generated this result transmitted reference range : 10*3/?L. The reference range was not used to interpret this result as normal/abnormal . GRAN MAT (NEUT) % 61.9 % (test code = 770-8) IMM GRAN % (test code 0.30 % = 1957019449) LYMPH % (test code = 26.0 % 736-9) MONO % (test code = 9.5 % 5905-5) EOS % (test code = 1.6 % 713-8) BASO % (test code = 0.7 % 706-2) GRAN MAT x10^3(ANC) 5.91 10*3/uL 1.88-7.09 (test code = 1435391262) IMM GRAN x10^3 (test 0.03 10*3/uL 0.00-0.06 code = 5808344008) LYMPH x10^3 (test code 2.48 10*3/uL 1.32-3.29 = 731-0) MONO x10^3 (test code 0.91 10*3/uL 0.33-0.92 = 742-7) EOS x10^3 (test code = 0.15 10*3/uL 0.03-0.39 711-2) BASO x10^3 (test code 0.07 10*3/uL 0.01-0.07 = 704-7) Lab Interpretation Abnormal (test code = 81939-7) [facility] HospitalJESSICA [id number] 22:24:55 Test Item Value Reference Interpretation Comments Range TROPONIN I (test 0.002 ng/mL See_Comment [Automated code = 5096957879) message] The system which generated this result [...] biotin. Lab Interpretation Normal (test code = 52106-3) [facility]2021-11-16 22:24:34 Test Item Value Reference Range Interpretation Comments [place] (test code = <0.2 0.6-1.2 L 1447346584) PERRY (test code = PERRY) Toxic Range: ? Greater than 1.2 mmol/L Lab Interpretation (test Abnormal code = 56969-8) [facility] HospitalCOMP. METABOLIC PANEL ([id number])2021-09-09 22:13:54 Test Item Value Reference Range Interpretation Comments NA (test code = 139 mmol/L 135-145 9938168993) K (test code = 4.0 mmol/L 3.5-5.0 0267839783) CL (test code = 105 mmol/L 98-108 4342914809) CO2 TOTAL (test code 26 mmol/L 23-31 = 3830535480) AGAP (test code = 2-16 5378835639) BUN (test code = 11 mg/dL 7-23 5997657866) GLUCOSE (test code = 109 mg/dL 70-110 2605008092) CREATININE (test code 0.71 mg/dL 0.50-1.04 = 8802464127) TOTAL BILI (test code 0.6 mg/dL 0.1-1.1 = 5030042843) CALCIUM (test code = 10.4 mg/dL 8.6-10.6 7784943117) T PROTEIN (test code 7.6 g/dL 6.3-8.2 = 3413555095) ALBUMIN (test code = 4.7 g/dL 3.5-5.0 6063312373) ALK PHOS (test code = 78 U/L 34-122 8775681691) ALTv (test code = 19 U/L 5-35 1742-6) AST(SGOT) (test code 28 U/L 13-40 = 6595139434) eGFR (test code = mL/min/1.73m2 9991054207) PERRY (test code = PERRY) Association of [...] or urine or abnormalities in imaging tests). [facility] WITH [id number] 22:03:32 Test Item Value Reference Range Interpretation [...] RDW-SD (test code = 40.2 fL 39.0-49.9 40418-4) RDW-CV (test code = 12.9 % 12.0-15.5 788-0) PLT (test code = See_Comment H [Automated 777-3) message] The sy stem which generated this result transmitted reference range : 166 - 358 10*3/ ?L. The reference r katie was not used to interpret this result as normal/abnormal . MPV (test code = 9.4 fL 9.5-12.9 L 53372-3) NRBC/100 WBC (test See_Comment [Automat ed code = 3898227229) message] The system which generated this result transmitted reference range : 0.0 - 10.0 /100 WBCs. The refer ence range was not u sed to interpret th is result as normal/abnormal . NRBC x10^3 (test code <0.01 See_Comment [Auto mated = 9206616544) message] The s ystem which generated this result transmitted reference range : 10*3/?L. The reference range was not used to interpret this result as normal/abnormal . GRAN MAT (NEUT) % 67.1 % (test code = 770-8) IMM GRAN % (test code 1.00 % = 7774512083) LYMPH % (test code = 21.4 % 736-9) MONO % (test code = 7.9 % 5905-5) EOS % (test code = 1.8 % 713-8) BASO % (test code = 0.8 % 706-2) GRAN MAT x10^3(ANC) 7.35 10*3/uL 1.88-7.09 H (test code = 8520052984) IMM GRAN x10^3 (test 0.11 10*3/uL 0.00-0.06 H code = 5222952200) LYMPH x10^3 (test code 2.34 10*3/uL 1.32-3.29 = 731-0) MONO x10^3 (test code 0.86 10*3/uL 0.33-0.92 = 742-7) EOS x10^3 (test code = 0.20 10*3/uL 0.03-0.39 711-2) BASO x10^3 (test code 0.09 10*3/uL 0.01-0.07 H = 704-7) Lab Interpretation Abnormal (test code = 44758-6) [facility] ONLY - INFLUENZA A & B DIRECT [id number] 14:04:00 Test Item Value Reference Range Interpretation Comments Influenza A (test code = 32106-3) Negative Negative Influenza B (test code = 52163-5) Negative Negative Lab Interpretation (test code = Normal 76219-6) [facility] (ID NOW RAPID TESTING)2020-09-30 14:03:00 Test Item Value Reference Range Interpretation Comments SARS-CoV-2 Rapid ID NOW Not Detected Not Detected (test code = 90577-6) PERRY (test code = PERRY) ID NOW COVID-19 Assay is an isothermal nucleic acid amplification test intended for the qualitative detection of nucleic acid from SARS-CoV-2 viral RNA in nasopharyngeal (FIGHTING VEHICLE SYSTEMS MAINTAINER) specimens. It is used under Emergency Use [...] indicated. Lab Interpretation Normal (test code = 50078-4) [facility]2020-12-07 13:55:00 Test Item Value Reference Range Interpretation Comments APPEARANCE (test code = Hazy Clear A 7213349089) COLOR (test code = Yellow Yellow 3116171849) PH (test code = 4.8-8.0 7624255950) SP GRAVITY (test code = 1.003-1.030 7435514443) GLU U QUAL (test code = Normal Normal 3924081550) BLOOD (test code = Negative Negative 7115650882) KETONES (test code = 5 mg/dL Negative A 5905844955) PROTEIN (test code = Negative Negative 2887-8) UROBILIN (test code = 2.0 mg/dL Normal A 7647256386) BILIRUBIN (test code = Negative Negative 7760586553) NITRITE (test code = Negative Negative 7010254482) LEUK ROZINA (test code = 25/uL Negative A 7506969183) RBC/HPF (test code = See_Comment [Autom ated message] 0255944680) The system [employer] generated this result transmit ngozi reference range : 0 - 3 HPF. The refe rence range was not u sed to interpret th is result as normal/abnormal . WBC/HPF (test code = See_Comment [Autom ated message] 1274531540) The system [employer] generated this result transmit ngozi reference range : 0 - 5 HPF. The refe rence range was not u sed to interpret th is result as normal/abnormal . BACTERIA (test code = Few Negative A 8663985134) MUCOUS (test code = Slight Negative LPF A 3914905193) SQ EPITH (test code = HPF 5534891108) Lab Interpretation (test Abnormal code = 39493-6) [facility]PR Qgdsuttwyjd7206-08-03 16:42:24 Test Item Value Reference Range Interpretation [...] = 10-24-2020 N Expiration Dt) Thyroid Stimulating Vwxbqjs3167-48-40 08:35:16 Test Item Value Reference Range Interpretation Comments TSH (test code = TSH) 1.170 mIU/mL 0.270-4.200 Lipid Tsaze9464-72-50 08:21:19 Test Item Value Reference Range Interpretation Comments Cholesterol Total 254 mg/dL 0-200 H RISK OF HE ART (test code = DISEASEPublishe d by Cholesterol Total) [place] [employer] Cahtie lyte Optimal Borderl ine Increased RiskC HOL [...] calculation is LDL/HDL Ratio=L DL Calc/HDL Chol QGQJMKYLWOBA7906-49-45 08:24:008.6[facility] WhhmhxtJQIYUCXJMELR8645-99-42 08:24:49296Oiufalxv DfypilySVZEQHNAYTJT0799-43-27 08:24:0027[facility] FTWNGONGPWLH9759-64-59 08:24:65071Sxuoxmfq AfbdgphZJTRZBSNKSCJ3074-01-26 08:24:003.6[facility] HqarwyjAZFHBQNGQQJP2075-53-05 08:24:000.70[facility] PXRXTPVSKGDZ8523-02-10 08:24:008.4[facility] VikapmcFDUVKDKKFXUT1034-17-85 08:24:79301Snzytjnt KkinyltQUMHCIUIAJHR6539-96-45 08:24:0086[facility] LZOLKFHCAWTL0586-66-85 08:24:006[facility] BpbfbzzRUBZZUZUPT3446-02-71 08:24:00 11.6[facility] XtkkaadDXKXZDXAMR6320-17-52 08:24:003.78[facility]annHEMATOLOGY 2019-01-26 08:24:0013.3[facility] MnkufbdHKHOKZXKSU7258-86-60 08:24:0034.0[facility] WfpcvjtNPHCZUOYXB6192-16-25 08:24:006.3[facility] CpnrylhEKDLVDUWJW3345-54-03 08:24:00 Test Item Value Reference Range Interpretation Comments MCH (test code = MCH) 30.7 pg 27.0-31.0 [facility] OvoafhrBAEJHOFMNO9844-76-08 08:24:0090.3[facility] HermannHEMATOLOGY 2019-01-26 08:24:0034.2[facility] BbwttofTDGGWGGPLJ4073-95-78 08:24:94221Yzlekwxl ExaqaswIIEYXSKQPT5109-33-66 08:24:007.5[facility] UuvfwylCKSQAIKLATXF0486-91-89 08:24:008.emorial CxjsevbPJTLZXXHNAMV3862-90-03 08:24:10567Oovfzkrk Yonis VERFSSZYFJNH3909-72-02 08:24:0027[facility] ApshfcyVBTTEXMUVMHH3557-27-55 08:24:00 139[facility] BsohbqwLXEUNMTWODMU6320-13-50 08:24:003.6[facility] EUFGXWWKORRS7471-34-50 08:24:000.70[facility] QnqktwnUZUMRZXUQVSX4494-56-42 08:24:008.4[facility] TfxfzamTYQXRPHIRPSM7559-47-89 08:24:18819[place] TMLUNKLIREQX6278-19-46 08:24:0086[facility] QtsyueoYHWACQKNLEBV9696-88-13 08:24:00 6[facility] EilavkaUVJZELRTBG0218-21-59 08:24:0011.6[facility] HermannHEMATOLOGY 2019-01-26 08:24:003.78[facility] FevjhymLPBSLPCIOT6093-76-74 08:24:0013.3[facility] CnqgbcvZETNTOVJSD9794-84-70 08:24:0034.0[facility] UicabfyHIAXFCPNAS5498-15-08 08:24:006.3[facility] YqzkmvoRVEQDMCBMR3924-24-50 08:24:00 Test Item Value Reference Range Interpretation Comments MCH (test code = MCH) 30.7 pg 27.0-31.0 [facility] WeivilnUROCZOPQUR7813-01-27 08:24:0090.3[facility] HermannHEMATOLOGY 2019-01-26 08:24:0034.2[facility] MkjyrrjYRGOGSNXGS4860-49-59 08:24:85628Lxhuitld TlxhbifWLYZXUUABU4228-60-19 08:24:007.5[facility] HermannCHEM RDSMH2407-13-58 09:14:52171Xzezrhie HermannCHEM PQZMV2097-42-55 09:14:008.5[facility] HermannCHEM EXNNE7656-80-76 09:14:0013.3[facility] HermannCHEM AUIOV6461-64-06 09:14:0024 [facility]annCHEM YXYYQ8853-63-19 09:14:79794Afvawujz HermannCHEM PANEL 2019-01-25 09:14:0081[facility] HermannCHEM YCMEF6624-09-73 09:14:002[facility]annCHEM YGKJQ7821-94-30 09:14:003.3[facility] HermannCHEM ZNYPZ4619-49-52 09:14:000.60[facility]annCHEM KLRQS6653-58-87 09:14:27785Rpjreffv HermannCHEM VHVDO7401-29-01 09:14:43113Argxxmri HermannCHEM RDJQZ5362-83-13 09:14:008.5 [facility]annCHEM GWWFD3783-41-58 09:14:0013.3[facility] HermannCHEM PANEL 2019-01-25 09:14:0024[facility] HermannCHEM BKVKN2953-19-33 09:14:41283Pflcrmdn HermannCHEM BDLAD1062-64-20 09:14:0081[facility] HermannCHEM CTAHX1447-21-42 09:14:002[facility]annCHEM DJBOS2519-18-26 09:14:003.3[facility] HermannCHEM TNHJW2312-01-51 09:14:000.60[facility] HermannCHEM GYXES4129-88-07 09:14:65976 [facility] HermannMOLECULAR MWHHAPYHEI1064-14-92 16:22:00Negative (01/23/19 11:22 AM)[facility] HermannMOLECULAR BURMOAVHBG4967-51-67 16:22:00Negative (01/23/19 11:22 AM)[facility]annCHEM BDUIL7998-04-74 15:42:002.76[facility] HermannCHEM PANEL 2019-01-23 15:42:002.76[facility] HermannCHEM OEEXI0362-91-94 12:32:000.9[facility]annCHEM STWCJ1682-05-54 12:32:000.9[facility]annCHEM BIDTG3560-83-04 10:50:002.0[facility]annCHEM PGBPS9540-19-36 10:50:49083Hptsqauo HermannCHEM KXIXK6767-18-08 10:50:0023[facility] HermannCHEM PMOOO5834-23-65 10:50:61058 [facility]annCHEM BTGAR0699-05-16 10:50:003.1[facility] HermannCHEM PANEL 2019-01-23 10:50:48638Dgybdrzu HermannCHEM PAVKP4512-87-67 10:50:005[facility] HermannCHEM ZSAEJ2121-24-17 10:50:000.50[facility] HermannCHEM IKDNZ5213-11-38 10:50:007.8[facility] HermannCHEM BAZLF7414-56-55 10:50:0083[facility] HermannCHEM GNWHN4301-71-29 10:50:0010.1[facility] RqagjklEVCVERAIPJ9697-25-04 10:50:000.2 [facility] PyozakjNNKPSNPLHC8806-63-73 10:50:000.8[facility] HermannHEMATOLOGY 2019-01-23 10:50:005.5[facility] HiwcmizUVOFTGTIIW9156-60-12 10:50:002.2[facility] IvkmulrLIZMHFFBPU5947-58-43 10:50:000.1[facility] BsdhaedOITAUFYVQN4093-12-70 10:50:0063.6[facility] EafdrjgVMOMGQRNOC6925-46-63 10:50:008.9[facility] OMQKCYWRHJ9511-38-25 10:50:002.3[facility] EzeybloGKHSTQQPCJ5707-42-38 10:50:00 Normal (01/23/19 5:50 AM)[facility] PklzrfwHTTVDVAHJL4728-95-24 10:50:00Normal (01/23/19 5:50 AM)[facility] NqgnlebSHVEIPREPV0911-70-39 10:50:0025.1[facility] SjfbdzsAKTYPBCRQN8365-22-29 10:50:0013.1[facility] JcjvtmuOWUAQSFAOI6120-76-30 10:50:92647Oddfyhzs RodeujuSUTPWLWWOI7641-19-67 10:50:007.7[facility] GUVONTMCKD3147-53-41 10:50:008.6[facility] AkkpmywPAVOHQYWMB9403-88-10 10:50:00 10.0[facility] MhvcuvwPCMCYEELMC8798-64-03 10:50:0034.6[facility] HermannHEMATOLOGY 2019-01-23 10:50:0028.7[facility] QncwofzIEIOKPPQGE6977-67-87 10:50:0087.8[facility] NeijjrpMMJVEILJJY2702-69-68 10:50:00 Test Item Value Reference Range Interpretation Comments MCH (test code = MCH) 30.4 pg 27.0-31.0 [facility] YzgadadHPDEPWZGBJ7980-96-54 10:50:003.27[facility] HermannHEMATOLOGY 2019-01-23 10:50:90981Mivgboco QilcohdGUTCVVQKLM4059-58-49 10:50:007.7[facility] LihzuflYPUXCJIVZD4464-64-86 10:50:008.6[facility] YbupimgMKNDKTXDOX5553-37-67 10:50:0010.0[facility] JkekfyjPBMPNYSFUA1560-37-58 10:50:0034.6[facility] PXJWCUWMYC7950-97-45 10:50:0028.7[facility] BbwdsrtZKHTLIDDBO0947-64-88 10:50:00 87.8[facility] EfthcyqBMCWZSQLLI6369-72-65 10:50:00 Test Item Value Reference Range Interpretation Comments MCH (test code = MCH) 30.4 pg 27.0-31.0 [facility] IdmkyfeSVVIDKAZXF9393-83-56 10:50:003.27[facility] HermannCHEM PANEL 2019-01-23 10:50:002.0[facility] HermannCHEM RDEZD3487-07-18 10:50:34733Zcpnflzz HermannCHEM OYUQL1898-07-30 10:50:0023[facility] HermannCHEM DEJNP3076-00-37 10:50:26350Fkyixpgl HermannCHEM TCLUS9704-93-51 10:50:003.1[facility] HermannCHEM YLKSH4338-67-63 10:50:22097Vxbdsqrw HermannCHEM CFDUW5222-22-63 10:50:005 [facility]annCHEM FALEA0280-00-22 10:50:000.50[facility] HermannCHEM PANEL 2019-01-23 10:50:007.8[facility] HermannCHEM BWAYV1421-50-15 10:50:0083[facility] HermannCHEM AOMRV1930-59-12 10:50:0010.1[facility] XnplaskHYHDDCHSQV2653-78-31 10:50:000.2[facility] CkdyklwPITCFYFEXS3852-73-57 10:50:000.8[facility] PXBBNLOIRQ8289-17-54 10:50:005.5[facility] HzqptqiMCOZOLSXYP7143-17-76 10:50:002.2 [facility] RmtohygAZSFCCPVLT1952-00-22 10:50:000.1[facility] HermannHEMATOLOGY 2019-01-23 10:50:0063.6[facility] LhcplgnDLKTVLFDLA0631-28-43 10:50:008.9[facility] ClefukkONYRFYPMFE6493-94-68 10:50:002.3[facility] ZznwxpuIMDWIEYMSS8951-78-15 10:50:00Normal (01/23/19 5:50 AM)[facility] AvcspyxYVOUNXJQGM3754-59-40 10:50:00 Normal (01/23/19 5:50 AM)[facility] SmotzlnYQCDGZFZWD5043-69-18 10:50:0025.1[facility] LnhiodkHKSCOTFJAK7792-41-99 10:50:0013.1[facility] HermannCHEM DCKXQ4827-23-18 11:32:002.4[facility] HermannCHEM HZUOS8342-88-27 11:32:002.4[facility] HermannCHEM HPTJL2794-79-97 09:04:003.0[facility] HermannCHEM AWGJB0927-81-60 09:04:003.0 [facility]annURINE AND MRYBF6783-73-43 07:14:00 Test Item Value Reference Range Interpretation Comments UA Spec Grav (test code = UA Spec 1.014 1 Grav) [facility] NAZYQ8588-60-37 07:14:00 Test Item Value Reference Range Interpretation Comments UA pH (test code = UA pH) 6.0 1 5.0-8.0 [facility] DMLUM8362-32-60 07:14:00Negative (01/22/19 2:14 AM) [facility] MJKVE0229-61-78 07:14:00Negative *NA*(01/22/19 2:14 AM) [facility] SVEYF4908-82-38 07:14:00Negative *NA*(01/22/19 2:14 AM) [facility] AKTWT9300-65-02 07:14:00Negative *NA*(01/22/19 2:14 AM) [facility] DNLLV9981-65-98 07:14:00Negative (01/22/19 2:14 AM) [facility] TSTEC5024-16-19 07:14:00Negative (01/22/19 2:14 AM) [facility] THHAU2828-14-50 07:14:00Negative (01/22/19 2:14 AM) [facility] ARVHJ0548-79-38 07:14:00<1[facility] QIIJQ0585-15-18 07:14:0025[facility]UR[facility] AND JTWWM0402-38-05 07:14:002 [facility] NXDRU0924-69-88 07:14:00Light Yellow *NA*(01/22/19 2:14 AM)[facility] JXODD0855-43-63 07:14:00Clear (01/22/19 2:14 AM) [facility] FIDGJ4075-48-33 07:14:00 Test Item Value Reference Range Interpretation Comments UA Spec Grav (test code = UA Spec 1.014 1 Grav) [facility] SHFQU1060-34-53 07:14:00 Test Item Value Reference Range Interpretation Comments UA pH (test code = UA pH) 6.0 1 5.0-8.0 [facility] AWKCF0555-49-81 07:14:00Negative (01/22/19 2:14 AM) [facility] KICCF6727-53-54 07:14:00Negative *NA*(01/22/19 2:14 AM) [facility] XXUQV3743-55-92 07:14:00Negative *NA*(01/22/19 2:14 AM) [facility] ZXDOE0908-89-85 07:14:00Negative *NA*(01/22/19 2:14 AM) [facility] OHFWB9935-29-90 07:14:00Negative (01/22/19 2:14 AM) [facility] PAPWK6015-17-91 07:14:00Negative (01/22/19 2:14 AM) [facility] TMWST4768-71-24 07:14:00Negative (01/22/19 2:14 AM) [facility] GGQNQ5583-31-13 07:14:00<1[facility] KKMHQ1565-10-80 07:14:0025[facility]UR[facility] SLVTE5464-76-93 07:14:002 [facility] CAFBL2865-83-62 07:14:00Light Yellow *NA*(01/22/19 2:14 AM)[facility] TCWOD4127-53-71 07:14:00Clear (01/22/19 2:14 AM) [facility] FkzfpdfAEZLC1695-75-81 05:16:000.90[facility] LpmmuovICMEV2026-03-52 05:16:000.90[facility] PoalxevQLERGTBGMZ7148-47-30 05:01:009.9[facility] QLNSPORCJZ2386-03-34 05:01:0032.8[facility] RtzxzbiLPEWDFBEGQ1840-82-08 05:01:00 13.6[facility] CarnsabMHQKNKRXCR6501-30-91 05:01:15297Bzikmncy HermannHEMATOLOGY 2019-01-22 05:01:007.3[facility] SmjtzokVPEBENPOSC5217-30-25 05:01:0014.0[facility] KadavejNDTSQZZDSX2593-92-06 05:01:004.85[facility] NykztwhAGKNJGYSCY1160-82-20 05:01:0042.7[facility] BsigzzzHLXUDRYRTX5072-04-52 05:01:00 Test Item Value Reference Range Interpretation Comments MCH (test code = MCH) 29.0 pg 27.0-31.0 [facility] DnrurxkVSERNTECOG9550-38-88 05:01:0088.2[facility] HermannHEMATOLOGY 2019-01-22 05:01:00 Test Item Value Reference Range Interpretation Comments INR (test code = INR) 0.96 1 0.85-1.17 [facility] KqczjoiCGZINZFEEV2253-99-32 05:01:00 Test Item Value Reference Range Interpretation Comments PT (test code = PT) 12.6 s 12.0-14.7 [facility] QswmmqgEPKLVFNDWR9034-81-69 05:01:00 Test Item Value Reference Range Interpretation Comments PTT (test code = PTT) 25.9 s 22.9-35.8 [facility] YQICVBP7531-66-73 05:01:00Negative (01/22/19 12:01 AM) [facility] HermannCARDIAC JKPTIKO8876-49-57 05:01:00<0.02[facility] CARDIAC QVNIRER6699-05-73 05:01:0049[facility] HermannCHEM LJIFZ4115-37-74 05:01:000.6[facility] HermannCHEM PONLU9254-65-02 05:01:21606Hddbicnq HermannCHEM KGTBK3166-82-29 05:01:004.0[facility] HermannCHEM BGFZH4565-97-98 05:01:0017 [facility]annCHEM ZJHKH8527-12-91 05:01:0025[facility] HermannCHEM PANEL 2019-01-22 05:01:008.1[facility] HermannCHEM MKGDS2935-82-49 05:01:00 Test Item Value Reference Range Interpretation Comments B/C Ratio (test code = B/C Ratio) 20 1 6-25 [facility]annCHEM ZJPYO8258-75-21 05:01:00 Test Item Value Reference Range Interpretation Comments A/G Ratio (test code = A/G Ratio) 1.0 1 0.7-1.6 [facility]annCHEM TNRVO4793-90-95 05:01:004.1[facility] HermannCHEM PANEL 2019-01-22 05:01:006.90[facility] RtgxgqhVAHAYIEVOREDI7861-87-97 05:01:00Negative *NA*(01/22/19 12:01 AM)[facility] LjqvawiKUHXQYEXAB5681-20-24 05:01:000.1[facility] GvvdiarWERLQUALUS0747-15-75 05:01:000.7[facility] WpbignmEOEMLSXWCM9322-50-54 05:01:000.0[facility] GqqerwgEBQYNQSEEN0803-37-06 05:01:000.0[facility] ZZQAUVAPHI7741-87-34 05:01:000.9[facility] BhfcjnfYSJGCXCXBW7748-82-95 05:01:008.6 [facility] VnxiwntZVRBSOBQFA9415-60-58 05:01:000.6[facility] HermannHEMATOLOGY 2019-01-22 05:01:0086.5[facility] PkcrnbkACZYUBCJOB1136-60-07 05:01:005.7[facility] DjeklqwTUKGFSLPXQ0179-79-54 05:01:006.9[facility] IafjhdmHBZXBEVUAE9792-74-28 05:01:009.9[facility] RydnoadKSVYQJZULA1430-94-10 05:01:0032.8[facility] APEUSSHJNQ1822-93-24 05:01:0013.6[facility] EvuncypBVJUSEJGES3836-80-19 05:01:00 443[facility] EufdxtcXBNVVFXOEN6370-51-08 05:01:007.3[facility] HermannHEMATOLOGY 2019-01-22 05:01:0014.0[facility] EqyzpbtSGSURMPTTI2979-58-19 05:01:004.85[facility] TabfbbhOYYWKGVCJF4983-05-31 05:01:0042.7[facility] HhhcyokPCSETBQQDQ8203-27-85 05:01:00 Test Item Value Reference Range Interpretation Comments MCH (test code = MCH) 29.0 pg 27.0-31.0 [facility] EjwoqzsYQFPOLENDE2827-11-73 05:01:0088.2[facility] HermannHEMATOLOGY 2019-01-22 05:01:00 Test Item Value Reference Range Interpretation Comments INR (test code = INR) 0.96 1 0.85-1.17 [facility] KltscbvQBLCMALUBA4650-51-04 05:01:00 Test Item Value Reference Range Interpretation Comments PT (test code = PT) 12.6 s 12.0-14.7 [facility] UuznrbbMSWGHRBMHY3392-98-07 05:01:00 Test Item Value Reference Range Interpretation Comments PTT (test code = PTT) 25.9 s 22.9-35.8 [facility] FVOXMFG8144-27-31 05:01:00Negative (01/22/19 12:01 AM) [facility] HermannCARDIAC OAMPYDQ4533-98-81 05:01:00<0.02[facility] CARDIAC QOMBEVX6623-70-38 05:01:0049[facility] HermannCHEM ZKTJB5569-01-45 05:01:000.6[facility] HermannCHEM AVQEY4159-03-10 05:01:59399Rsgsatcm HermannCHEM JUMZK8392-28-03 05:01:004.0[facility] HermannCHEM WZJUO1056-63-79 05:01:0017 [facility]annCHEM EEYTN9475-85-08 05:01:0025[facility] HermannCHEM PANEL 2019-01-22 05:01:008.1[facility] HermannCHEM PCTOT2962-88-95 05:01:00 Test Item Value Reference Range Interpretation Comments B/C Ratio (test code = B/C Ratio) 20 1 6-25 [facility] HermannCHEM PLTDE5346-06-77 05:01:00 Test Item Value Reference Range Interpretation Comments A/G Ratio (test code = A/G Ratio) 1.0 1 0.7-1.6 [facility]annCHEM BZGBO2706-61-85 05:01:004.1[facility] HermannCHEM PANEL 2019-01-22 05:01:006.90[facility] EoanzvfTARJJGUBCEQNG9864-34-39 05:01:00Negative *NA*(01/22/19 12:01 AM)[facility] HoppixeDCYBQESQAT4694-49-22 05:01:000.1[facility] KbbqyyjQKLPPESRVZ7541-06-68 05:01:000.7[facility] FbgoqmiVHHAHNWIBQ7062-31-35 05:01:000.0[facility] KdnahklTXMLVFSTOM3881-33-71 05:01:000.0[facility] XBDAKJZVHO8702-33-44 05:01:000.9[facility] FffowmfVUDTVTZQHM9337-45-29 05:01:008.6 [facility] EectygeNBAHDULCGC7812-34-14 05:01:000.6[facility] HermannHEMATOLOGY 2019-01-22 05:01:0086.5[facility] TbgvetxEACBRDLGHU5221-99-38 05:01:005.7[facility] RxbdrbkLYKMETOYQA0228-06-72 05:01:006.9[facility] QrbtbzwXGY4T4162-82-14 14:36:00 Test Item Value Reference Range Interpretation [...] 0.00-0.01 N code = ETOHU) Comprehensive Metabolic Fyhpm0293-88-95 14:36:00 Test Item Value Reference Range Interpretation [...] the National [employer] Foundation,http ://nkd ep.nih.gov Urinalysis Rswcvdhy4430-91-57 14:32:00 Test Item Value Reference Range Interpretation Comments Color (test code = COLOR) Yellow Yellow,Straw,Pl N yellow Clarity (test code = Clear Clear N CLAR) Specific [place] (test 1.024 1.001-1.035 N code = SPGR) [...] code = Few /HPF BACT) CBC with Mblookwtmdtb4085-43-12 14:21:00 Test Item Value Reference Range Interpretation [...] code = ALYMPH) 3.0 K/cumm 0.5-4.6 N Cotton Abs (test code = AMONO) 0.5 K/cumm 0.0-1.2 N Eos Abs (test code = AEOS) 0.19 K/cumm 0.00-0.74 N Baso Abs (test code = ABASO) 0.1 K/cumm 0.00-0.21 N
--- NOTE | 2021-09-25 08:04 | ER ---
Nurse's Notes [facility] Name: Tiffany Quinn Age: 51 yrs Sex: Female : 1970 Arrival Date: 09/25/2021 Time: 07:05 Bed 19 Private MD: Diagnosis: Adjustment disorder with anxiety Presentation: 09/25 07:30 Chief complaint: Patient states: Mostly just coming to check in and make sure the [facility] doctor knows I'm being responsible and I haven't done meth today or yesterday and I also didn't stay at [facility] this morning. And it kind of feels like my brain in pinched, like a slight headache. Coronavirus screen: At this time, the client does not indicate any symptoms associated with coronavirus-19. Ebola Screen: No symptoms or risks identified at this time. Initial Sepsis Screen: Does the patient meet any 2 criteria? No. Patient's initial sepsis screen is negative. Does the patient have a suspected source of infection? No. Patient's initial sepsis screen is negative. Risk Assessment: Do you want to hurt yourself or someone else? Patient reports no desire to harm self or others. Onset of symptoms is unknown. 07:30 Method Of Arrival: Ambulatory [facility] 07:30 Acuity: MANUEL 4 jl7 Triage Assessment: 07:33 Headache History: The patient has had previous headaches and this one is similar to jl7 previous episodes. General: Appears in no apparent distress. uncomfortable, Behavior is calm, cooperative. Pain: Complains of pain in headache Pain currently is 2 out of 10 on a pain scale. Pain began 2 hours ago. Also complains of no other associated symptoms. Neuro: Level of Consciousness is awake, alert, obeys commands, Oriented to person, place, time, situation. 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 Historical: - Allergies: 07:33 Pepcid; jl7 07:33 Toradol; jl7 - PMHx: 07:33 ADD; Anxiety; Bipolar disorder; jl7 - Immunization history:: Adult Immunizations up to date, Client reports receiving the 2nd dose of the Covid vaccine, Moderna. - Social history:: Smoking status: Patient/guardian denies using tobacco, the patient reports quitting approximately 2 years ago, Patient uses street drugs, Methamphetamine (Meth). Screenin:50 Abuse screen: Denies threats or abuse. Denies injuries from another. sl2 07:50 Nutritional screening: No deficits noted. Tuberculosis screening: No symptoms or risk sl2 factors identified. 07:50 Fall Risk None identified. sl2 Vital Signs: 07:30 BP 135 / 91; Pulse 95; Resp 17; Temp 98.1; Pulse Ox 100% ; Weight 71.67 kg; Height 5 jl7 ft. 3 in. (160.02 cm); Pain 2/10; 07:50 BP 132 / 88; Pulse 91; Resp 20; Temp 98.2; Pulse Ox 100% ; sl2 07:30 Body Mass Index 27.99 (71.67 kg, 160.02 cm) jl7 ED Course: 07:05 Patient arrived in ED. as 07:31 Demarcus Mancilla MD is Attending Physician. kdr 07:33 Triage completed. jl7 07:33 Arm band placed on right wrist. jl7 07:36 Yazmin Marte, RN is Primary Nurse. jl7 07:37 Aleksandra Jimenez, JIGNA is Primary Nurse. sl2 07:50 Patient has correct armband on for positive identification. Bed in low position. Call sl2 light in reach. 07:50 No provider procedures requiring assistance completed. Patient did not have IV access sl2 during this emergency room visit. 08:04 Dayna Dominguez DO is Referral Physician. kdr Administered Medications: No medications were administered Outcome: 08:04 Discharge ordered by . kdr 08:10 Discharged to home ambulatory. sl2 08:10 Condition: stable 08:10 Discharge instructions given to patient, Instructed on discharge instructions, follow up and referral plans. Demonstrated understanding of instructions, follow-up care. 08:11 Patient left the ED. sl2 Signatures: Demarcus Mancilla MD MD kdr Jewels Briggs as Yazmin Marte, JIGNA BENITO jl7 Aleksandra Jimenez, JIGNA RN sl2
--- NOTE | 2021-09-25 08:04 | EDPHYS ---
[facility]: Tiffany Quinn Age: 51 yrs Sex: Female : 1970 Arrival Date: 09/25/2021 Time: 07:05 Bed 19 Private MD: ED Physician Demarcus Mancilla HPI: 09/25 07:57 This 51 yrs old Female presents to ER via Ambulatory with complaints of Headache, kdr Breathing Difficulty. 07:58 The patient is seen here frequently for anxiety related issues. She has a history of kdr methamphetamine use. She states that the last methamphetamine use was day before yesterday. Today she presents with a brief but resolved headache and continued anxiety. She indicated that she had an appointment with Dr. Dominguez later today. She does not appear to be unstable or in any acute distress at this time. She is in her usual manic state. She denies SI or HI. Onset: The symptoms/episode began/occurred This is a more or less constant state for this individual. Today she does not appear to be in any new or inordinate discomfort or distress. Severity of symptoms: At their worst the symptoms were mild just prior to arrival, in the emergency department the symptoms are unchanged. The patient has experienced similar episodes in the past, chronically. The patient has not recently seen a physician. 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 - Social history:: Smoking status: Patient/guardian denies using tobacco, the patient reports quitting approximately 2 years ago, Patient uses street drugs, Methamphetamine (Meth). ROS: 07:58 Constitutional: Negative for fever, chills, and weight loss, Eyes: Negative for injury, kdr pain, redness, and discharge, Neck: Negative for injury, pain, and swelling, Cardiovascular: Negative for chest pain, palpitations, and edema, Respiratory: Negative for shortness of breath, cough, wheezing, and pleuritic chest pain, Abdomen/GI: Negative for abdominal pain, nausea, vomiting, diarrhea, and constipation, Back: Negative for injury and pain, : Negative for injury, bleeding, discharge, and swelling, MS/Extremity: Negative for injury and deformity, Skin: Negative for injury, rash, and discoloration, Allergy/Immunology: Negative for hives, rash, and allergies, Endocrine: Negative for neck swelling, polydipsia, polyuria, polyphagia, and marked weight changes, Hematologic/Lymphatic: Negative for swollen nodes, abnormal bleeding, and unusual bruising. 07:58 Neuro: Positive for headache, Negative for altered mental status, dizziness, gait disturbance, headache, hearing loss. 07:58 Psych: Positive for anxiety, Negative for depression, drug dependence, alcohol dependence, auditory hallucinations, visual hallucinations, homicidal ideation, suicide gesture, suicidal ideation. Exam: 07:58 Constitutional: This is a well developed, well nourished patient who is awake, alert, kdr and in no acute distress. 07:58 Psych: Behavior/mood is pleasant, cooperative, anxious, Affect is animated, Oriented to person, place, time, Patient has no thoughts/intents to harm self or others. Judgement / Insight is Patient says in her usual manic/anxious state. Memory is normal. Delusions/hallucinations are not present. Vital Signs: 07:30 BP 135 / 91; Pulse 95; Resp 17; Temp 98.1; Pulse Ox 100% ; Weight 71.67 kg; Height 5 jl7 ft. 3 in. (160.02 cm); Pain 2/10; 07:50 BP 132 / 88; Pulse 91; Resp 20; Temp 98.2; Pulse Ox 100% ; sl2 07:30 Body Mass Index 27.99 (71.67 kg, 160.02 cm) jl7 MDM: 07:58 Data reviewed: vital signs, nurses notes. Counseling: I had a detailed discussion with kdr the patient and/or guardian regarding: the historical points, exam findings, and any diagnostic results supporting the discharge/admit diagnosis, the need for outpatient follow up. 08:04 Patient medically screened. kdr Administered Medications: No medications were administered Disposition Summary: 09/25/21 08:04 Discharge Ordered Location: Home kdr Condition: Stable kdr Problem: an ongoing problem kdr Symptoms: are unchanged kdr Diagnosis - Adjustment disorder with anxiety kdr Followup: kdr - With: Private Physician - When: 2 - 3 days - Reason: If symptoms return, Further diagnostic work-up, Recheck today's complaints, Continuance of care, Re-evaluation by your physician Followup: kdr - With: Dayna Dominguez DO - When: Today - Reason: If symptoms return, Further diagnostic work-up, Recheck today's complaints, Continuance of care, Re-evaluation by your physician Discharge Instructions: - Discharge Summary Sheet kdr - Panic Attack, [id number] kdr Forms: - Medication Reconciliation Form kdr - Thank You Letter kdr Signatures: Demarcus Mancilla MD MD kdr Yazmin Marte RN RN jl7
[2021-09-25 08:24] VITALS: O2SAT 100
[2021-09-25 08:28] VITALS: BP 132/88; TEMP 98.2
== END 2021-09-25 08:11 | disposition home or self-care (01) ==
LOC: ER 07:04
DX: F43.22 Adjustment disorder with anxiety (principal); Z88.5 Allergy status to narcotic agent; Z88.8 Allergy status to other drugs, medicaments and biological substances
CPT/HCPCS: 99281

== ENCOUNTER 2021-09-26 01:25 | Emergency (ER) | payer OTHER ==
--- OUTSIDE RECORDS SUMMARY | 2021-09-26 01:34 | XMS REPORT | Continuity of Care Document ---
:1970 Author Organization [facility] t Address [address] [place] [address] Care Team Providers Name Role Phone UNKNOWN Primary Care Physician Unavailable Sanchez SNOW Attending Clinician SANCHEZ Attending Clinician Unavailable Julia HOFFMANN S Attending Clinician Doctor Unassigned, Name Attending Clinician Unavailable Singer ESCALANTE Attending Clinician Attending Clinician Unavailable Humaira-Mbayo_A_AH Attending Clinician Unavailable Chente Attending Clinician Unavailable Chente Attending Clinician Unavailable AFUWAPE Attending Clinician Unavailable ROGERS Admitting Clinician Unavailable Humaira-Mbayo_A_AH Admitting Clinician Unavailable Chente Admitting Clinician Unavailable ALEXYSUWAPE Admitting Clinician Unavailable Payers Payer Name Policy Type Policy Number Effective Date Expiration Date S [facility] OF [place] - [id number] 2020 [employer] 00:00:00 (MEDICARE REPLACEMENT/ADVANT AGE - [...] 00 GASTROENTE RITIS AND COLITIS Active 01/21/2019 [facility] Irregular Irregular Disease Active Uni vers menstrual menstrual 8-15 ity of cycle cycle 00:00: [address] Skin Skin Disease Active Univers lesion lesion 8-15 ity of 00:00: [address] Psychiatri Psychiatri Disease Active U nivers c disorder c disorder 8-15 it y of 00:00: [address] Well woman Well woman Disease Active U nivers exam with exam with 8-15 ity of routine routine 00:00: [place] gynecologi gynecologi 00 Me dical nicky exam nicky exam Branch INFECTIOUS Diagnosis Active 2019-02-06 Memoria GASTROENTE 08:58:00 l RITIS AND Yonis COLITIS, INFECTIOUS GASTROENTE RITIS AND COLITIS, Active [facility] Allergies, Adverse Reactions, Alerts Allergy Allergy Status Severity Reaction(s) Onset Inactive Treating Comm ents Source Name Type Date Date Clinician Phenerga Phenerga Active Memori a n n l Yonis NO KNOWN Drug Active Univers ALLERGIE Class ity of S [facility] Social History Social Habit Start Date Stop Date Quantity Comments Source History of Cigarette Smoker Universi ty of tobacco use [facility] Tobacco Comment 2-3 cigs a day [facility] Exposure to Not sure [place] of SARS-CoV-2 [facility] (event) [place] Tobacco use and 2016-06-08 2016-06-08 [facility]00 00:00:00 [facility] Alcohol intake 2016-06-08 2016-06-08 0 /d University of 00:00:00 00:00:00 [facility] Sex Assigned At [birth year] Universit y of 00:00:00 00:00:00 [facility] Smoking Status Start Date Stop Date Source Social History 2019-01-22 05:00:12 [facility] Her urena Current some day smoker 2016-06-08 00:00:00 [facility] Medications Ordered Filled Start Stop Current Ordering Indication Dosage Frequency Signature Comments Components Source Medication Medication Date Date Medication? Clinician (SIG) Name Name cefTRIAXone 2020-10- No 1000mg 1,000 mg, Univers (ROCEPHIN) 17 11-17 IV ity of 1,000 mg in 08:30: 08:01 [place], [place] NaCl 0.9% 00 :00 ONCE, 1 [...] 09/09/21 at 2330, RANDA amoxicillin 2020-10 Yes [id number] 500mg Take 1 Univers 500 mg 11-10 capsule by ity of capsule 00:00: mouth 3 [place] 00 (three) Medical times Branch daily. ondansetron 2019-10- No 4mg 4 mg, [facility] ers (ZOFRAN-ODT 12-01 Oral, ity of ) 15:15: 14:16 ONCE, 1 [place] disintegrat 00 :00 dose, Mon Med ical ing tablet 09/30/20 at [facility] 4 mg 0915, Routine ondansetron 2019-10- No 4mg 4 mg, [facility] ers (ZOFRAN-ODT 12-01- Oral, ity of ) 14:30: 13:32 ONCE, 1 [place] disintegrat 00 :00 dose, Mon Med ical ing tablet 09/30/20 at [facility] nc 4 mg 0830, Routine ondansetron 2019-10 Yes [id number] 4mg Take 1 Univers 4 mg 2-07 tablet by ity of disintegrat 00:00: mouth [place] ing tablet 00 every 8 Medica l (eight) Branch hours as needed for Nausea and Vomiting (N/V). ondansetron 2019-10 Yes [id number] 4mg Take 1 Univers 4 mg 2-07 tablet by ity of disintegrat 00:00: mouth [place] ing tablet 00 every 8 Medica l (eight) Branch hours as needed for Nausea and Vomiting (N/V). ondansetron 2019-10 Yes [id number] 4mg Take 1 Univers 4 mg 2-07 tablet by ity of disintegrat 00:00: mouth [place] ing tablet 00 every 8 Medica l (eight) Branch hours as needed for Nausea and Vomiting (N/V). ondansetron 2019-10 Yes [id number] 4mg Take 1 Univers 4 mg 2-07 tablet by ity of disintegrat 00:00: mouth [place] ing tablet 00 every 8 Medica l (eight) Branch hours as needed for Nausea and Vomiting (N/V). ciprofloxac 2019 Yes 500 mg = 1 Memoria in 500 mg 4-04 tab, PO, l oral tablet 17:35: [id number], X [place] 00 4 day, # 8 tab, 0 [...] 4-04 tab, PO, l oral tablet 17:35: [id number], X [place] 00 4 day, # 8 tab, 0 Refill(s) Ondansetron 2018- Yes 4 mg = 1 Me moria 4 MG Oral 4-04 tab, PO, l Tablet 17:35: Q6H, PRN [place] [Zofran] 00 Nausea/Vom iting, # 20 tab, [...] moria 01-24 Route: PO, l 14:00: QAM, [place] Dosing Weight 75, kg, Start date: 01/24/19 [...] ia 4- (Same As: l 18:00: KlonoPIN) [place] Flagyl No Notes: Memoria 4- (Same as: l 15:00: Flagyl) Yonis 00 Take with food/ avoid alcohol Cipro No Notes: May Memori a - interfere l 15:00: w/enteral Yonis 00 feedings - Take 1 hr before or 2 hrs after antacids, dairy pdt & minerals. On empty stomach. Flagyl No Notes: Memoria 4- (Same as: l 15:00: Flagyl) [place] 00 Take with food/ avoid alcohol Cipro No Notes: February Memori a 4- interfere l 15:00: w/enteral [place] 00 feedings - Take 1 hr before [...] PO, ONCE, l mEq oral 14:20: 0 [place] tablet, 00 Refill(s) extended release Metronidazo No 500 mg, Mem oria le 500 MG 4-01 PO, l Oral Tablet 14:20: [id number], 0 H ermann [Flagyl] 00 Refill(s) Ciprofloxac No 500 mg, Mem oria in 500 MG 01 PO, l Oral Tablet 14:20: [id number], 0 [place] [Cipro] 00 Refill(s) potassium Yes 40 mEq, Memor ia chloride 20 -01 PO, ONCE, l mEq oral 14:20: 0 [place] tablet, 00 Refill(s) extended release Metronidazo No 500 mg, Mem oria le 500 MG 4-01 PO, l Oral Tablet 14:20: ABXQ8H, 0 H ermann [Flagyl] 00 Refill(s) Ciprofloxac No 500 mg, Mem oria in 500 MG 4-01 PO, l Oral Tablet 14:20: [id number], 0 [place] [Cipro] 00 Refill(s) Potassium No Notes: Memori [...] tab, PO, l Tablet 21:08: BID, 0 [place] [Risperdal] 00 Refill(s) Strattera Yes 0.5 mg/kg, [...] tab, PO, l Tablet 21:08: BID, 0 [place] [Risperdal] 00 Refill(s) Zosyn No Notes: Memoria [...] oria 3-31 to exceed l 15:03: 400mg/day. [place] 00 (Same As: Ultram) Tramadol No Notes: [...] 01-22 Route: IM, l 09:47: Drug form: [place] 00 PDR/INJ, PRN, Dosing Weight 75.994, kg, [...] Memoria 3-31 (Same as: l 08:56: Zofran) [place] MEDICATION WASTE Product Size: 4 mg Product [...] moria IV - 1,000 l 05:44: ml/hr, [place] 00 Infuse Over: 1 hr, Route: IV, [...] 0.9% 3-31 Same as: l 04:52: BD [place] Posiflush Sterile NS (Bolus) No 1,000 mL, Me moria IV 3-31 1,000 l 04:51: ml/hr, Yonis 00 Infuse Over: 1 hr, Route: IV, 1,000, Drug form: INJ, ONCE, Priority: STAT, Dosing Weight 75.994 kg, Start date: 01/21/19 23:51:00 CDT, Stop date: 01/21/19 23:51:00 CDT NS (Bolus) No 1,000 mL, Me moria IV 01-22 1,000 l 04:51: ml/hr, [place] 00 Infuse Over: 1 hr, Route: IV, [...] HYDROBROMID 8-15 mouth. ity of E 19:02: [place] (CITALOPRAM 27 Medical ORAL) Branch ibuprofen 2016-0 Yes 200mg Take 200 Uni vers (ADVIL) 200 8-15 mg by ity of mg tablet 14:02: mouth [place] [address] every 6 Medical (six) Branch hours as needed. CLONAZEPAM 2016-0 Yes Take by Uni vers (KLONOPIN 8-15 mouth. ity of ORAL) 14:02: [address] Branch CITALOPRAM 2016-0 Yes Take by Uni vers HYDROBROMID 8-15 mouth. ity of E 14:02: [place] (CITALOPRAM 27 Medical ORAL) Branch ibuprofen 2016-0 Yes 200mg Take 200 Uni vers (ADVIL) 200 8-15 mg by ity of mg tablet 14:02: mouth [place] [address] every 6 Medical (six) Branch hours as needed. CLONAZEPAM 2016-0 Yes Take by Uni vers (KLONOPIN 8-15 mouth. ity of ORAL) 14:02: [address] Branch CITALOPRAM 2016-0 Yes Take by Uni vers HYDROBROMID 8-15 mouth. ity of E 14:02: [place] (CITALOPRAM 27 Medical ORAL) Branch ibuprofen 2016-0 Yes 200mg Take 200 Uni vers (ADVIL) 200 8-15 mg by ity of mg tablet 14:02: mouth [place] [address] every 6 Medical (six) Branch hours as needed. CLONAZEPAM 2016-0 Yes Take by Uni vers (KLONOPIN 8-15 mouth. ity of ORAL) 14:02: [place] [address] Medical Branch CITALOPRAM 2016-0 Yes Take by Uni vers HYDROBROMID 8-15 mouth. ity of E 14:02: [place] (CITALOPRAM 27 Medical ORAL) Branch misoprostol 2016-0 [...] H it y of en-caff 00:00: PRN. [place] (ESGIC) 00 Medical 50-325-40 Branch mg tablet butalbital- 2015-0 Yes TK 1 TO 2 U nivers acetaminoph 8-01 T PO Q 8 H it y of en-caff 00:00: PRN. [place] (ESGIC) 00 Medical 50-325-40 Branch mg tablet butalbital- 2015-0 Yes TK 1 TO 2 U nivers acetaminoph 8-01 T PO Q 8 H it y of en-caff 00:00: PRN. [place] (ESGIC) 00 Medical 50-325-40 Branch mg tablet butalbital- 2016-0 Yes TK 1 TO 2 U nivers acetaminoph 8-01 T PO Q 8 H it y of en-caff 00:00: PRN. [place] (ESGIC) 00 Medical 50-325-40 Branch mg tablet dextroamphe 0 Yes TK 1 T PO U nivers tamine-amph 7-20 BID. ity of etamine 00:00: [place] (ADDERALL) 00 Medical 20 mg Branch tablet dextroamphe Yes TK 1 T PO U nivers tamine-amph 7-20 BID. ity of etamine 00:00: [place] (ADDERALL) 00 Medical 20 mg Branch tablet dextroamphe Yes TK 1 T PO U nivers tamine-amph 7-20 BID. ity of etamine 00:00: [place] (ADDERALL) 00 Medical 20 mg Branch tablet [...] 08:01:00 138 mm[Hg] Univer sity of [facility] Diastolic blood 2021-09-10 08:01:00 97 mm[Hg] Unive rsity of [facility] Heart rate 2021-09-10 08:01:00 87 /min [facility] Respiratory rate 2021-09-10 08:01:00 20 /min [facility] O[facility] saturation in 2021-09-10 08:01:00 98 /min University of Arterial blood by [place] [employer] [facility] Pulse oximetry Branch Body temperature 2021-09-10 04:28:51 37.17 Ruthann [facility] Body height 2021-09-10 04:26:00 154.9 cm [facility] Body weight 2021-09-10 04:26:00 81.647 kg [facility] BMI 2021-09-10 04:26:00 34.01 kg/m2 [facility] Systolic blood 2021-09-09 20:06:00 150 mm[Hg] Univer sity of [facility] Diastolic blood 2021-09-09 20:06:00 89 mm[Hg] Unive rsity of [facility] Heart rate 2021-09-09 20:06:00 108 /min [facility] Body temperature 2021-09-09 20:06:00 37.22 Ruthann [facility] Respiratory rate 2021-09-09 20:06:00 18 /min [facility] Oxygen saturation in 2021-09-09 20:06:00 99 /min University of Arterial blood by [employer] nicky Pulse oximetry Branch Body weight 2021-09-09 20:05:00 81.647 kg Universi ty [facility] [place] [facility] BMI 2021-09-09 20:05:00 32.40 kg/m2 Universi ty [facility] [place] [facility] Systolic blood 2020-09-30 14:00:00 126 mm[Hg] Univer sity of pressure [place] [facility] Diastolic blood 2020-09-30 14:00:00 84 mm[Hg] Unive rsity of pressure [place] [facility] Heart rate 2020-09-30 14:00:00 79 /min Universi ty [facility] [place] [facility] Oxygen saturation in 2020-09-30 14:00:00 98 /min University of Arterial blood by [facility] nicky Pulse oximetry Branch Body temperature 2020-09-30 13:26:00 37.22 Ruthann Univ ersity of [place] [facility] Respiratory rate 2020-09-30 13:26:00 16 /min Univ ersity of [place] [facility] Body weight 2020-09-30 13:26:00 72.576 kg [facility]i ty [facility] [place] [facility] BMI 2020-09-30 13:26:00 28.80 kg/m2 [facility]i ty [facility] [place] [facility] Systolic blood 2020-09-30 14:00:00 126 mm[Hg] Univer sity of pressure [place] [facility] Diastolic blood 2020-09-30 14:00:00 84 mm[Hg] Unive rsity of pressure [place] [facility] Heart rate 2020-09-30 14:00:00 79 /min Universi ty of [place] [facility] Oxygen saturation in 2020-09-30 14:00:00 98 /min University of Arterial blood by [facility] nicky Pulse oximetry Branch Body temperature 2020-09-30 13:26:00 37.22 Ruthann Univ ersity of [place] [facility] Respiratory rate 2020-09-30 13:26:00 16 /min Univ ersity of [place] [facility] Body weight 2020-09-30 13:26:00 72.576 kg [facility]i ty [facility] [place] [facility] BMI 2020-09-30 13:26:00 28.80 kg/m2 [facility] [place] [facility] Temperature Oral (F) 2019-01-28 01:16:00 98.6 F [facility] Yonis Systolic (mm Hg) 2019-01-28 01:16:00 Estrada rial [place] Diastolic (mm Hg) 2019-01-28 01:16:00 Mem orial [place] Heart Rate 2019-01-28 01:16:00 [facility] [place] Respitory Rate 2019-01-28 01:16:00 Memori al [place] Systolic (mm Hg) 2019-01-27 20:42:00 Estrada rial Yonis Diastolic (mm Hg) 2019-01-27 20:42:00 Mem orial Yonis Heart Rate 2019-01-27 20:42:00 [facility] [place] Respitory Rate 2019-01-27 20:42:00 Memori al [place] Temperature Oral (F) 2019-01-27 20:42:00 98.5 F Memorial Yonis Systolic (mm Hg) 2019-01-27 17:00:00 Estrada rial Yonis Diastolic (mm Hg) 2019-01-27 17:00:00 Mem orial Yonis Temperature Oral (F) 2019-01-27 17:00:00 98.5 F Memorial [place] Heart Rate 2019-01-27 17:00:00 [facility] [place] Respitory Rate 2019-01-27 [facility]:00 [facility] 2019-01-22 14:35:00 157.48 cm [facility] BMI Calculated 2019-01-22 14:35:00 [facility] Weight 2019-01-22 14:35:00 [facility] [place] Weight 2019-01-22 04:34:00 [facility] Procedure Date / Time Performing Clinician Source Performed URINALYSIS 2021-09-10 06:03:00 [facility] URINE DRUG (IMMUNOASSAY) 2021-09-10 06:03:00 Neena Rogers [facility] SCREEN W/O REFLEX XR CHEST 1 VW 2021-09-10 04:57:30 [facility] CREATINE KINASE 2021-09-10 04:39:00 Neena [facility] MAGNESIUM 2021-09-10 04:39:00 Neena [facility] TROPONIN I 2021-09-10 04:39:00 Neena [facility] COMP. METABOLIC PANEL 2021-09-10 04:39:00 Neena Rogers [facility] ([id number]) Medical [place] CBC WITH DIFF 2021-09-10 04:39:00 Neena Rogers [facility] PROTHROMBIN TIME / INR 2021-09-10 04:39:00 [facility] ACTIVATED PARTIAL 2021-09-10 04:39:00 Neena Rogers [facility] THRMPLAS [facility] N-TERMINAL PRO-BNP 2021-09-10 04:39:00 Neena Rogers [facility] COVID-19 (ID NOW RAPID 2021-09-10 04:39:00 [facility] TESTING) Medical Branch TROPONIN I 2021-09-09 21:49:00 [facility] COMP. METABOLIC PANEL 2021-09-09 21:49:00 [facility] Luanne [facility] ([id number]) Medical Branch LITHIUM 2021-09-09 21:49:00 [facility] CBC WITH DIFF 2021-09-09 21:49:00 [facility] CONSENT/REFUSAL FOR 2021-09-09 19:51:22 Doctor Unassigned, No Un [facility] DIAGNOSIS AND TREATMENT Name [facility] URINALYSIS 2020-09-30 13:27:00 [place], [facility] ADC,CLC OR LCC ONLY - 2020-09-30 13:27:00 JacksonChuy aleman [facility] INFLUENZA A & B DIRECT Medical B ranch ANTIGEN COVID-19 (ID NOW RAPID 2020-09-30 13:27:00 [place] Chuy [facility] TESTING) Medical Branch Encounters Start End Encounter Admission Attending Care Care Encounter Source Date/Time Date/Time Type Type Clinicians Facility Department ID 2019-01-22 Inpatient E [facility] MED [id number] [facility] W 04:39:00 2021-09-09 2021-09-10 Emergency DENIA Rogers [id number] Univers 22:20:00 03:02:00 Neena JIMENEZ [id number] i ty of [place] 4.2.7.2.686 [facility] [id number] [facility] nicky 084 Branch 2021-09-09 2021-09-10 Emergency X DENIA ROGERS ERT [id number] Univers 22:20:00 03:02:00 NEENA tubbs [facility] 2021-09-09 2021-09-10 Emergency X [facility] [id number] Univers 22:20:00 03:02:00 NEENA tubbs [facility] 2021-09-09 2021-09-09 Emergency Julia [facility] [id number] Univers 14:07:00 17:35:00 Luanne JIMENEZ [id number] i ty of [place] 4.2.7.2.686 [facility] [id number] [address] 2021-09-09 2021-09-09 Orders Doctor BELKYS [id number] Univers 00:00:00 00:00:00 Only Unassigned, LANA 350.1.13.10 ity of [place] [facility] 4.2.7.2.686 [facility] [id number] [address] 2020-09-30 2020-09-30 [facility] [id number] 07:22:00 08:18:00 Chuy Jimenez [id number] [place] 4.2.7.2.686 [place] [id number] [facility] 2020-09-30 2020-09-30 Emergency [facility] [id number] Univers 07:22:00 08:18:00 Chuy Jimenez 350.1.13.10 i ty of [place] 4.2.7.2.686 [facility] [id number] [address] 2020-09-30 2020-09-30 Emergency X [facility] ERT [id number] Univers 07:22:00 07:22:00 CHUY tubbs [facility] 2020-04-05 2020-04-05 Outpatient Humaira-Mbayo VFP P [address] [place] [address] 05:44:00 05:44:00 _A_AH 27619 Family Practic e 2020-04-05 2020-04-05 Outpatient Humaira-Mbayo VFP VFP [id number] 05:44:00 05:44:00 _A_AH 48521 Family Practic e 2020-04-05 2020-04-05 Outpatient Humaira-Alekso VFP VFP [id number] [facility] 05:44:00 05:44:00 _A_AH [id number] Family Practic e 2020-04-05 2020-04-05 Outpatient Humaira-Alekso VFP VFP [id number] [facility] 05:44:00 05:44:00 _A_AH 72799 Family Practic e 2020-03-04 2020-03-14 Inpatient 3 Ronni Eldridge [facility] PSY [id number] 15:38:00 15:25:00 Chente [facility] 2019-12-13 2019-12-13 Outpatient Humaira-Alekso VFP VFP [facility] [facility] 07:22:00 07:22:00 _A_ [id number] Family Practic e 2019-01-22 2019-01-28 Inpatient [facility] [id number] Memoria 04:33:00 04:40:00 martin Somers 00 l [facility] 2018-02-21 2018-02-20 [id number] 14:48:00 13:18:00 [facility] Results Test Description Test Time Test Comments Results Result Comments Source TROPONIN I 2021-09-10 05:26:53 Test Item Value Reference Range Interpretation Comme nts TROPONIN I (test code = 0.003 ng/mL See_Comment [Au tomated message] The 9102615203) system which ge nerated this result tra [...] biotin. Lab Interpretation Normal (test code = 88905-4) [facility] [id number] 05:24:16 Test Item Value Reference Range Interpretation Comments NT-proBNP (test code 35 pg/mL See_Comment [Autom ated = 2194404280) message] The system which generated this result transmitted reference range : <=125. The reference range was not used to interpret this result as normal/abnormal . PERRY (test code = PERRY) Biotin has been reported to cause a negative bias, interpret results relative to patient's use of biotin. Lab Interpretation Normal (test code = 88628-1) [facility]21[facility]-17 05:16:51 Test Item Value Reference Range Interpretation Comments MAGNESIUM (test code = 1247485741) 1.8 mg/dL 1.7-2.4 Lab Interpretation (test code = Normal 57318-0) [facility]OL[facility] ([id number])2021-09-10 05:16:31 Test Item Value Reference Range Interpretation Comments NA (test code = 139 mmol/L 135-145 2275099103) K (test code = 4.0 mmol/L 3.5-5.0 6215360949) CL (test code = 108 mmol/L 98-108 0677181845) CO2 TOTAL (test code 25 mmol/L 23-31 = 2540135733) AGAP (test code = 2-16 5246046285) BUN (test code = 14 mg/dL 7-23 4756731929) GLUCOSE (test code = 88 mg/dL 70-110 2034616615) CREATININE (test code 0.89 mg/dL 0.50-1.04 = 1279955050) TOTAL BILI (test code 0.5 mg/dL 0.1-1.1 = 9180066019) CALCIUM (test code = 10.3 mg/dL 8.6-10.6 8872500509) T PROTEIN (test code 6.9 g/dL 6.3-8.2 = 9519060377) ALBUMIN (test code = 4.3 g/dL 3.5-5.0 8708387382) ALK PHOS (test code = 72 U/L 34-122 6264394219) ALTv (test code = 17 U/L 35 1742-6) AST(SGOT) (test code 29 U/L 13-40 = 5853236765) eGFR (test code = mL/min/1.73m2 7737512199) PERRY (test code = PERRY) Association of [...] or urine or abnormalities in imaging tests). [facility] [id number] 05:16:16 Test Item Value Reference Range Interpretation Comments CK (test code = 5203122686) 267 U/L 33-194 H Lab Interpretation (test code = Abnormal 01468-3) [facility] THRMPLAS [id number] 05:05:32 Test Item Value Reference Range Interpretation Comments APTT Patient (test See_Comment [Automat ed code = 3173-2) message] The system which generated this result transmitted reference range : 23 - 38 Seconds . The reference range was not used to interpr et this result as normal/abnormal . PERRY (test code = PERRY) The [facility] patient population mean normal value for aPTT is 30 seconds. Lab Interpretation Normal (test code = 58745-6) [facility] Hospital[facility] / [id number] 05:03:30 Test Item Value Reference Range Interpretation [...] tions. Lab Interpretation (test Normal code = 68964-1) [facility] WITH [id number] 04:57:13 Test Item Value Reference Range Interpretation Comments WBC (test code = See_Comment [Automated 0490-2) message] The sy stem which generated this result transmitted reference range : 4.30 - 11.10 10*3/?L. The reference range was not used to interpret this result as normal/abnormal . RBC (test code = See_Comment [Automated 449-8) message] The sy stem which generated this [...] RDW-SD (test code = 41.2 fL 39.0-49.9 29447-1) RDW-CV (test code = 13.0 % 12.0-15.5 788-0) PLT (test code = See_Comment H [Automated 777-3) message] The sy stem which generated this result transmitted reference range : 166 - 358 10*3/ ?L. The reference r katie was not used to interpret this result as normal/abnormal . MPV (test code = 9.6 fL 9.5-12.9 07117-2) NRBC/100 WBC (test See_Comment [Automat ed code = 0035423208) message] The system which generated this result transmitted reference range : 0.0 - 10.0 /100 WBCs. The refer ence range was not u sed to interpret th is result as normal/abnormal . NRBC x10^3 (test code <0.01 See_Comment [Auto mated = 9372664730) message] The s ystem which generated this result transmitted reference range : 10*3/?L. The reference range was not used to interpret this result as normal/abnormal . GRAN MAT (NEUT) % 61.9 % (test code = 770-8) IMM GRAN % (test code 0.30 % = 2330567978) LYMPH % (test code = 26.0 % 736-9) MONO % (test code = 9.5 % 5905-5) EOS % (test code = 1.6 % 713-8) BASO % (test code = 0.7 % 706-2) GRAN MAT x10^3(ANC) 5.91 10*3/uL 1.88-7.09 (test code = 2660230582) IMM GRAN x10^3 (test 0.03 10*3/uL 0.00-0.06 code = 2950875584) LYMPH x10^3 (test code 2.48 10*3/uL 1.32-3.29 = 731-0) MONO x10^3 (test code 0.91 10*3/uL 0.33-0.92 = 742-7) EOS x10^3 (test code = 0.15 10*3/uL 0.03-0.39 711-2) BASO x10^3 (test code 0.07 10*3/uL 0.01-0.07 = 704-7) Lab Interpretation Abnormal (test code = 35016-6) [facility] [id number] 22:24:55 Test Item Value Reference Interpretation Comments Range TROPONIN I (test 0.002 ng/mL See_Comment [Automated code = 0611731555) message] The system which generated this result [...] biotin. Lab Interpretation Normal (test code = 82316-6) [facility]21[facility] 22:24:34 Test Item Value Reference Range Interpretation Comments [place] (test code = <0.2 0.6-1.2 L 9091769315) PERRY (test code = PERRY) Toxic Range: ? Greater than 1.2 mmol/L Lab Interpretation (test Abnormal code = 18436-1) [facility]OLIC PANEL ([id number])2021-09-09 22:13:54 Test Item Value Reference Range Interpretation Comments NA (test code = 139 mmol/L 135-145 8821878137) K (test code = 4.0 mmol/L 3.5-5.0 1505504888) CL (test code = 105 mmol/L 98-108 0726686724) CO2 TOTAL (test code 26 mmol/L 23-31 = 3303592401) AGAP (test code = 2-16 9263595624) BUN (test code = 11 mg/dL 7-23 8233307472) GLUCOSE (test code = 109 mg/dL 70-110 3392128854) CREATININE (test code 0.71 mg/dL 0.50-1.04 = 6055668563) TOTAL BILI (test code 0.6 mg/dL 0.1-1.1 = 2497322428) CALCIUM (test code = 10.4 mg/dL 8.6-10.6 6957483943) T PROTEIN (test code 7.6 g/dL 6.3-8.2 = 2747924281) ALBUMIN (test code = 4.7 g/dL 3.5-5.0 3003466058) ALK PHOS (test code = 78 U/L 34-122 0912099238) ALTv (test code = 19 U/L 5-35 1742-6) AST(SGOT) (test code 28 U/L 13-40 = 1064187461) eGFR (test code = mL/min/1.73m2 1644934366) PERRY (test code = PERRY) Association of [...] or urine or abnormalities in imaging tests). [facility] JMDY7177-65-94 22:03:32 Test Item Value Reference Range Interpretation Comments WBC (test code = See_Comment [Automated 5390-2) message] The sy stem which generated this [...] RDW-SD (test code = 40.2 fL 39.0-49.9 48181-3) RDW-CV (test code = 12.9 % 12.0-15.5 788-0) PLT (test code = See_Comment H [Automated 777-3) message] The sy stem which generated this result transmitted reference range : 166 - 358 10*3/ ?L. The reference r katie was not used to interpret this result as normal/abnormal . MPV (test code = 9.4 fL 9.5-12.9 L 20457-2) NRBC/100 WBC (test See_Comment [Automat ed code = 8614288446) message] The system which generated this result transmitted reference range : 0.0 - 10.0 /100 WBCs. The refer ence range was not u sed to interpret th is result as normal/abnormal . NRBC x10^3 (test code <0.01 See_Comment [Auto mated = 1746443363) message] The s ystem which generated this result transmitted reference range : 10*3/?L. The reference range was not used to interpret this result as normal/abnormal . GRAN MAT (NEUT) % 67.1 % (test code = 770-8) IMM GRAN % (test code 1.00 % = 6947947839) LYMPH % (test code = 21.4 % 736-9) MONO % (test code = 7.9 % 5905-5) EOS % (test code = 1.8 % 713-8) BASO % (test code = 0.8 % 706-2) GRAN MAT x10^3(ANC) 7.35 10*3/uL 1.88-7.09 H (test code = 3065154215) IMM GRAN x10^3 (test 0.11 10*3/uL 0.00-0.06 H code = 3689343345) LYMPH x10^3 (test code 2.34 10*3/uL 1.32-3.29 = 731-0) MONO x10^3 (test code 0.86 10*3/uL 0.33-0.92 = 742-7) EOS x10^3 (test code = 0.20 10*3/uL 0.03-0.39 711-2) BASO x10^3 (test code 0.09 10*3/uL 0.01-0.07 H = 704-7) Lab Interpretation Abnormal (test code = 42565-5) [facility]ENZA A & B DIRECT RKFKCPT2013-06-09 14:04:00 Test Item Value Reference Range Interpretation Comments Influenza A (test code = 87480-3) Negative Negative Influenza B (test code = 06721-9) Negative Negative Lab Interpretation (test code = Normal 80092-0) [facility]APID TESTING)2020-09-30 14:03:00 Test Item Value Reference Range Interpretation Comments SARS-CoV-2 Rapid ID NOW Not Detected Not Detected (test code = 38307-3) PERRY (test code = PERRY) ID NOW COVID-19 Assay is an isothermal nucleic acid amplification test intended for the qualitative detection of nucleic acid from SARS-CoV-2 viral RNA in nasopharyngeal (COURT ADVOCATE) specimens. It is used under Emergency Use [...] indicated. Lab Interpretation Normal (test code = 66391-3) [facility] 13:55:00 Test Item Value Reference Range Interpretation Comments APPEARANCE (test code = Hazy Clear A 7846867160) COLOR (test code = Yellow Yellow 0990210057) PH (test code = 4.8-8.0 7355477537) SP GRAVITY (test code = 1.003-1.030 1571203260) GLU U QUAL (test code = Normal Normal 2805446929) BLOOD (test code = Negative Negative 9427236678) KETONES (test code = 5 mg/dL Negative A 4183766582) PROTEIN (test code = Negative Negative 2887-8) UROBILIN (test code = 2.0 mg/dL Normal A 6891881856) BILIRUBIN (test code = Negative Negative 3257069007) NITRITE (test code = Negative Negative 9138761360) LEUK ROZINA (test code = 25/uL Negative A 1330162997) RBC/HPF (test code = See_Comment [Autom ated message] 1732320676) The system [employer] generated this result transmit ngozi reference range : 0 - 3 HPF. The refe rence range was not u sed to interpret th is result as normal/abnormal . WBC/HPF (test code = See_Comment [Autom ated message] 7843969416) The system [employer] generated this result transmit ngozi reference range : 0 - 5 HPF. The refe rence range was not u sed to interpret th is result as normal/abnormal . BACTERIA (test code = Few Negative A 1901944077) MUCOUS (test code = Slight Negative LPF A 1143602910) SQ EPITH (test code = HPF 3014421894) Lab Interpretation (test Abnormal code = 18568-2) [facility] Xxyigkdijfv1112-61-59 16:42:24 Test Item Value Reference Range Interpretation [...] = 10-24-2020 N Expiration Dt) Thyroid Stimulating Xnxocde2882-55-60 08:35:16 Test Item Value Reference Range Interpretation Comments TSH (test code = TSH) 1.170 mIU/mL 0.270-4.200 Lipid Bercf3161-43-40 08:21:19 Test Item Value Reference Range Interpretation Comments Cholesterol Total 254 mg/dL 0-200 H RISK OF HE ART (test code = DISEASEPublishe d by Cholesterol Total) [place] [employer] Cathie lyte Optimal Borderl ine [...] calculation is LDL/HDL Ratio=L DL Calc/HDL Chol IKUSVIIFKSZN6725-88-64 08:24:008.6[facility] KlwjxmdLACASPOMXMDV5775-84-56 08:24:27461Ctjwgvze WlzozrcZLPSNTDETXOE9389-89-84 08:24:0027[facility] ODUOYAEFJADW7655-05-02 08:24:45918Ybdmmuha QpngltySJQUINITZJZC4378-08-07 08:24:003.6[facility] VyoedfdGJENXEYQACHW6449-24-37 08:24:000.70[facility] OEFXJEHKJIGJ6409-29-33 08:24:008.4[facility] EuagrhzQYDSPHLDLDKK4440-24-83 08:24:91667Dbcklgjs BjgnfygYNTQTRMWHPOQ2259-09-41 08:24:0086[facility] ELMVHZFNIKQS1656-97-63 08:24:006[facility] QovpguoHIKEPJOKOU4270-34-85 08:24:00 11.6[facility] JuxtziwMIEZJIXTJF8559-76-62 08:24:003.78[facility]annHEMATOLOGY 2019-01-26 08:24:0013.3[facility] KckkmzfMDPUGDZUVH8049-99-37 08:24:0034.0[facility] KqcespuLDEODVYVKK0200-00-85 08:24:006.3[facility] FdzhbnlRFPUBXESOA2995-19-06 08:24:00 Test Item Value Reference Range Interpretation Comments MCH (test code = MCH) 30.7 pg 27.0-31.0 [facility] QqxlmxrUFHXDPGEFY0685-57-26 08:24:0090.3[facility]annHEMATOLOGY 2019-01-26 08:24:0034.2[facility] TjhokslHOYGRNZBUY2219-54-59 08:24:68890Wkpabexw UnffufkSYKXSOPBME3236-79-94 08:24:007.5[facility] LyztnawWEOZMCQURFTF4425-56-89 08:24:008.6[facility] VtrndosEWCLURDFAUSY3520-01-77 08:24:98560Kxafqwit [facility] ERBIQICVIEJX9353-99-08 08:24:0027[facility] XqtjsmlYIWVPWBIXQTW9150-76-81 08:24:00 139[facility] LyhzffnMFDBMISLHGHO4696-10-52 08:24:003.6[facility] IFETHBMCFNSM2041-92-65 08:24:000.70[facility] AyndselPQADVJGRBLNM4056-19-11 08:24:008.4[facility] EihacauCPXMSHNUHLCB3320-54-28 08:24:12665Ywckoorc [facility] TVQWONOMBGGF7363-61-59 08:24:0086[facility] IhtliabPPHODOHUDHCG5252-20-74 08:24:00 6[facility] NvzfshxMYYSBHGJSL1978-61-55 08:24:0011.6[facility]annHEMATOLOGY 2019-01-26 08:24:003.78[facility] HmmpsdwKNBLNDHKJN0457-54-90 08:24:0013.3[facility] XokwxlpMRMEZAPGAU2906-56-70 08:24:0034.0[facility] NuoapxkQLLBXAQMTW6820-00-22 08:24:006.3[facility] GqwckvcXNXAICAVAO2795-61-54 08:24:00 Test Item Value Reference Range Interpretation Comments MCH (test code = MCH) 30.7 pg 27.0-31.0 [facility] IpksxgeZJUWHZXAQH1799-95-45 08:24:0090.3[facility]annHEMATOLOGY 2019-01-26 08:24:0034.2[facility] AszfnwfYJNDQJKSBQ1927-19-88 08:24:63728Dskicktb YumsbjzORMVASGACP7874-82-17 08:24:007.5[facility] HermannCHEM LJGFN0720-10-24 09:14:27564Hnqtwdqv HermannCHEM QVULX8666-73-21 09:14:008.5[facility]annCHEM ZLVKZ7994-78-46 09:14:0013.3[facility]annCHEM SNJOT1500-92-01 09:14:0024 [facility]annCHE[facility] CXGEG8329-27-17 09:14:60167Ebinpiai HermannCHEM PANEL 2019-01-25 09:14:0081[facility]annCHEM GVKAE1596-13-24 09:14:002[facility]annCHE[facility] YTKRI0112-27-52 09:14:003.3[facility]annCHEM PPSST1893-10-12 09:14:000.60[facility]annCHEM POBLW0622-30-60 09:14:42870Zhwelqcs HermannCHEM LYPEU7612-70-05 09:14:29929Pnnozyuz HermannCHEM WVEXA7913-20-71 09:14:008.5 [facility]CHE[facility] SQNDP0705-14-10 09:14:0013.3[facility]annCHEM PANEL 2019-01-25 09:14:0024[facility]annCHEM VEOWL9070-37-07 09:14:14193Ihsrjzse [facility]annCHEM YXLYX0218-49-30 09:14:0081[facility]annCHEM LRRPS7393-50-75 09:14:002[facility]annCHEM KSPPC0545-70-51 09:14:003.3[facility]annCHEM FDWNB1664-85-45 09:14:000.60[facility]annCHEM RKZFY7852-84-31 09:14:18914 [facility]annMOLECULAR KEFVVIRBEC3721-14-88 16:22:00Negative (01/23/19 11:22 AM)[facility]annMOLECULAR SNGLYWUOVV7055-38-73 16:22:00Negative (01/23/19 11:22 AM)[facility]annCHEM GSSQP6698-94-46 15:42:002.76[facility]annCHEM PANEL 2019-01-23 15:42:002.76[facility]annCHEM RRANG3473-63-59 12:32:000.9[facility]annCHEM KZNWZ3981-76-99 12:32:000.9[facility]annCHEM KHGRH2490-17-50 10:50:002.0[facility]annCHEM KPADA3637-00-76 10:50:10734Coyhyyjo HermannCHEM BCIVL5172-67-66 10:50:0023[facility]annCHEM XJMMY5387-67-03 10:50:86910 [facility]annCHE[facility] EZQCB3222-03-11 10:50:003.1[facility]annCHEM PANEL 2019-01-23 10:50:08515Wqningjg HermannCHEM GDCVD6984-81-02 10:50:005[facility]annCHEM AZMWV2710-56-71 10:50:000.50[facility]annCHEM EOXME1579-57-11 10:50:007.8[facility]annCHEM QXJEG7258-31-87 10:50:0083[facility]annCHEM NZXLP5977-73-06 10:50:0010.1[facility] CrhlbgdMGNBHYUPGK3559-56-36 10:50:000.2 [facility] YxhfwpuAKDOYLDYZV6825-52-11 10:50:000.8[facility]annHEMATOLOGY 2019-01-23 10:50:005.5[facility] UcibpnfWJBYMVBHGX4024-60-79 10:50:002.2[facility] VvjlulyFGNNBNMLIA4326-57-07 10:50:000.1[facility] VsbvqsyJNKFKMXKPH8721-48-17 10:50:0063.6[facility] VmicfpgSHYPSEXZGW3435-71-80 10:50:008.9[facility] WMKXBQENCJ7193-00-79 10:50:002.3[facility] KseazpxFWVUVGAUZC6410-39-55 10:50:00 Normal (01/23/19 5:50 AM)[facility] GqlobxbIHBWCUOZDU1952-82-40 10:50:00Normal (01/23/19 5:50 AM)[facility] FdixxiyZEEJKGLFJP8307-00-07 10:50:0025.1[facility] KpatzhjTMDPAGPYBW1202-17-46 10:50:0013.1[facility] MrwjgabOBEAQNTBXJ7978-71-78 10:50:95430Xwnrlejz BpebfkeYCDUVYWCAD0650-04-26 10:50:007.7[facility] VHCOKEOYWL4497-33-62 10:50:008.6[facility] TdniaejGFQWGECVZT8256-85-12 10:50:00 10.0[facility] RmggxwgSJEDGXGJMQ2780-32-60 10:50:0034.6[facility]annHEMATOLOGY 2019-01-23 10:50:0028.7[facility] TyehxxsQMKPLCVHCM1512-26-72 10:50:0087.8[facility] ApyuasmNFMZYEXDSG0297-82-49 10:50:00 Test Item Value Reference Range Interpretation Comments MCH (test code = MCH) 30.4 pg 27.0-31.0 [facility] QqlabmwBVEOVPVCYF3794-30-67 10:50:003.27[facility]annHEMATOLOGY 2019-01-23 10:50:30665Jowplzoz AvjnnksZVSDYLGOZQ4653-90-20 10:50:007.7[facility] GwdlhcfQZBZFUHZVS5385-21-05 10:50:008.6[facility] QfqypjkJCHEGBBNVL6201-21-71 10:50:0010.0[facility] CautmowRRYAEZATBE3273-72-82 10:50:0034.6[facility] GGTHKLXTUM8465-45-58 10:50:0028.7[facility] QtschrwNGNLEFVMDX6284-37-42 10:50:00 87.8[facility] TazmdlkTZFWFWGVTT3026-81-05 10:50:00 Test Item Value Reference Range Interpretation Comments MCH (test code = MCH) 30.4 pg 27.0-31.0 [facility] JfhdzrhRLFIOAEXPC9245-64-49 10:50:003.27[facility] HermannCHEM PANEL 2019-01-23 10:50:002.0[facility]annCHEM HQKKT9712-79-74 10:50:63775Yzleacqu HermannCHEM FYUTK8546-24-63 10:50:0023[facility]annCHEM IZHWJ3814-91-66 10:50:64592Svkqafcr [facility]CHE[facility] XPSYY4377-21-33 10:50:003.1[facility]annCHEM MUCEG4212-48-35 10:50:06326Ibgfqlea [facility]annCHEM TEPCX5356-36-92 10:50:005 [facility]annCHE[facility] PZXLN4353-66-63 10:50:000.50[facility]annCHEM PANEL 2019-01-23 10:50:007.8[facility]annCHEM TCYND8529-96-63 10:50:0083[facility]annCHEM VWCBK2522-73-31 10:50:0010.1[facility] JdfrwgtCSAYTLZKQK4270-98-85 10:50:000.2[facility] JncntlgJBEKPSYEKY1639-67-73 10:50:000.8[facility] NEKZCKUXEM4081-69-97 10:50:005.5[facility] XbucxveDJSOLHMPCI0182-63-11 10:50:002.2 [facility] PzesyiqLFJCKZEDBV9103-79-52 10:50:000.1[facility]annHEMATOLOGY 2019-01-23 10:50:0063.6[facility] ZxbjdxlDQDONJOMPL3522-42-05 10:50:008.9[facility] DkxyzmvNDSNZOBXSP3064-02-96 10:50:002.3[facility] JweetnoJYSSOSIRZX0110-22-33 10:50:00Normal (01/23/19 5:50 AM)[facility] ZgxtmqlNJTIUBLRDD4475-14-16 10:50:00 Normal (01/23/19 5:50 AM)[facility] VdcbrhbKMJGVUHICN4582-65-88 10:50:0025.1[facility] ImvmeysZPGYDIDKVQ1925-07-64 10:50:0013.1[facility] HermannCHEM YXIYU9027-55-35 11:32:002.4[facility]annCHEM VBGXM6028-34-08 11:32:002.4[facility]annCHEM YSSII2095-79-91 09:04:003.0[facility]annCHEM FMTNT9581-51-47 09:04:003.0 [facility] TFNAR4419-15-59 07:14:00 Test Item Value Reference Range Interpretation Comments UA Spec Grav (test code = UA Spec 1.014 1 Grav) [facility] UTGPW3500-28-91 07:14:00 Test Item Value Reference Range Interpretation Comments UA pH (test code = UA pH) 6.0 1 5.0-8.0 [facility] FHPGP1747-18-37 07:14:00Negative (01/22/19 2:14 AM) [facility] IUWTY2010-77-61 07:14:00Negative *NA*(01/22/19 2:14 AM) [facility] XCDMB8444-82-99 07:14:00Negative *NA*(01/22/19 2:14 AM) [facility] OLJTQ7143-05-44 07:14:00Negative *NA*(01/22/19 2:14 AM) [facility] PDROA6211-88-57 07:14:00Negative (01/22/19 2:14 AM) [facility] ZIXRK4663-67-45 07:14:00Negative (01/22/19 2:14 AM) [facility] ANNAE6721-37-62 07:14:00Negative (01/22/19 2:14 AM) [facility] WMFNN7210-61-74 07:14:00<1[facility] UIGJE1254-99-45 07:14:0025[facility] XTDSE1875-38-54 07:14:002 [facility] LQTSW1090-00-10 07:14:00Light Yellow *NA*(01/22/19 2:14 AM)[facility] MNDDM1936-82-27 07:14:00Clear (01/22/19 2:14 AM) [facility] KWAVI3151-51-36 07:14:00 Test Item Value Reference Range Interpretation Comments UA Spec Grav (test code = UA Spec 1.014 1 Grav) [facility] XIUIW2777-47-94 07:14:00 Test Item Value Reference Range Interpretation Comments UA pH (test code = UA pH) 6.0 1 5.0-8.0 [facility] NMCNJ2959-52-62 07:14:00Negative (01/22/19 2:14 AM) [facility] KEQTR1508-73-29 07:14:00Negative *NA*(01/22/19 2:14 AM) [facility] RPIOF8200-32-50 07:14:00Negative *NA*(01/22/19 2:14 AM) [facility] JRPBL4716-22-91 07:14:00Negative *NA*(01/22/19 2:14 AM) [facility] RNHFU5948-57-05 07:14:00Negative (01/22/19 2:14 AM) [facility] ZBHAH8699-29-81 07:14:00Negative (01/22/19 2:14 AM) [facility] INARU7669-44-01 07:14:00Negative (01/22/19 2:14 AM) [facility] EOLGA2893-97-60 07:14:00<1[facility] OHEPB3610-17-80 07:14:0025[facility] LMGWN3117-25-34 07:14:002 [facility] JNLDC4829-71-55 07:14:00Light Yellow *NA*(01/22/19 2:14 AM)[facility] LYPLY7637-56-60 07:14:00Clear (01/22/19 2:14 AM) [facility] IfikbzrBMHXO2780-38-33 05:16:000.90[facility] RwdsrcdJQZLX3743-54-77 05:16:000.90[facility] YtvzvrwACIOXLUPXI6928-48-73 05:01:000.0[facility] TAIMLYAKYN8392-96-93 05:01:000.9[facility] SqqgzhlVQDEIVZJNT6110-39-96 05:01:008.6 [facility] BoignkvQQWQBDTJKR8972-49-12 05:01:000.6[facility]annHEMATOLOGY 2019-01-22 05:01:0086.5[facility] ZkgswmtZISTNKHUDC8947-02-01 05:01:005.7[facility] SijqssvHEZNESHUJM7411-89-19 05:01:006.9[facility] BsmilpmNDMPWFLLVJ8679-73-46 05:01:009.9[facility] ErryghlEMOUKHVHVM9105-39-32 05:01:0032.8[facility] QROACRZSSN9626-12-36 05:01:0013.6[facility] XryazfsYJICGTDJAM3206-18-67 05:01:00 443[facility] YwdptkmTJKNJOSHHE9790-58-64 05:01:007.3[facility]annHEMATOLOGY 2019-01-22 05:01:0014.0[facility] GeopyrgCLXOUREQXX5277-77-98 05:01:004.85[facility] CxijmhzSHFUYKLFMH6571-37-01 05:01:0042.7[facility] MskoaapSXHMAKFPKU1691-58-14 05:01:00 Test Item Value Reference Range Interpretation Comments MCH (test code = MCH) 29.0 pg 27.0-31.0 [facility] IaofmxeWQCFQXXTHS9188-68-81 05:01:0088.2[facility]annHEMATOLOGY 2019-01-22 05:01:00 Test Item Value Reference Range Interpretation Comments INR (test code = INR) 0.96 1 0.85-1.17 [facility] EmtuekxRZFOSECBBA9660-92-98 05:01:00 Test Item Value Reference Range Interpretation Comments PT (test code = PT) 12.6 s 12.0-14.7 [facility] OavmugdESUIVUSPUD2037-20-37 05:01:00 Test Item Value Reference Range Interpretation Comments PTT (test code = PTT) 25.9 s 22.9-35.8 [facility] XGTFMXL3627-85-20 05:01:00Negative (01/22/19 12:01 AM) [facility]annCARDIAC GZPYEKK9202-14-45 05:01:00<0.02[facility] CARDIAC YKYBQIY3496-46-85 05:01:0049[facility]annCHEM NTFUZ8950-42-82 05:01:000.6[facility]annCHEM GJLBH8756-20-03 05:01:45413Ckgarybk HermannCHEM QATJC1437-98-85 05:01:004.0[facility]annCHEM RYGNH1093-38-96 05:01:0017 [facility]annCHEM AXZDA5401-57-61 05:01:0025[facility]annCHEM PANEL 2019-01-22 05:01:008.1[facility]annCHEM YTAZR9476-77-99 05:01:00 Test Item Value Reference Range Interpretation Comments B/C Ratio (test code = B/C Ratio) 20 1 6-25 [facility]annCHEM DEZED5641-99-49 05:01:00 Test Item Value Reference Range Interpretation Comments A/G Ratio (test code = A/G Ratio) 1.0 1 0.7-1.6 [facility]annCHE[facility] KPNGP6509-44-80 05:01:004.1[facility]annCHEM PANEL 2019-01-22 05:01:006.90[facility] ZbxhazlSSENGLUYIJXHC1759-58-87 05:01:00Negative *NA*(01/22/19 12:01 AM)[facility] BrscstcVDXWRTSCVH7093-92-73 05:01:000.1[facility] ChgklpvOVQSGYDSLQ1349-45-42 05:01:000.7[facility] QjzuwrqENHRKCKHJM4573-77-35 05:01:000.0[facility] UobjphlRZDUFYMDHX3719-00-36 05:01:000.0[facility] NBPRVWWHVT7914-58-27 05:01:000.9[facility] OozasxfNZUDQHDEQG4249-09-22 05:01:008.6 [facility] UjgmgaiXNFTYGHAMM1597-78-87 05:01:000.6[facility]annHEMATOLOGY 2019-01-22 05:01:0086.5[facility] XujnhzbOJSLSJPZFE1218-86-18 05:01:005.7[facility] QolgdvpLRUMNIVUVR8755-95-43 05:01:006.9[facility] CpjizucCEZBHYUBYU4458-04-22 05:01:009.9[facility] IpikyeqUETKWAFZPF7647-35-81 05:01:0032.8[facility] GZMPBIZGUB9917-49-56 05:01:0013.6[facility] JoxyhfkSJDCIFWYMI8579-39-03 05:01:00 443[facility] VjwqhcqKUJOXPACQU6332-52-33 05:01:007.3[facility]annHEMATOLOGY 2019-01-22 05:01:0014.0[facility] RcawslhJPFBUMMOPM8981-56-77 05:01:004.85[facility] AzilxhsPRDHGCULAO3709-04-83 05:01:0042.7[facility] LzxscwmIDFSLFXIYM5110-86-41 05:01:00 Test Item Value Reference Range Interpretation Comments MCH (test code = MCH) 29.0 pg 27.0-31.0 [facility] SrntnsaKLYNZNMMSR2847-57-16 05:01:0088.2[facility]annHEMATOLOGY 2019-01-22 05:01:00 Test Item Value Reference Range Interpretation Comments INR (test code = INR) 0.96 1 0.85-1.17 [facility] OfeifymMZOYIMVAIJ7178-77-51 05:01:00 Test Item Value Reference Range Interpretation Comments PT (test code = PT) 12.6 s 12.0-14.7 [facility] JfuragyBCZFGPSZEN0772-77-05 05:01:00 Test Item Value Reference Range Interpretation Comments PTT (test code = PTT) 25.9 s 22.9-35.8 [facility] PIVUZTJ8700-19-00 05:01:00Negative (01/22/19 12:01 AM) [facility]annCARDIAC XCSGODE3128-82-83 05:01:00<0.02[facility] CARDIAC UNWFUDS0900-06-83 05:01:0049[facility] HermannCHEM LFVWZ2993-26-97 05:01:000.6[facility]annCHEM FTXUN1571-07-97 05:01:33978Aahzwzui HermannCHEM VHOAP0549-94-40 05:01:004.0[facility]annCHEM FFJAX2337-59-99 05:01:0017 [facility]annCHEM OJRVC9974-39-42 05:01:0025[facility]annCHEM PANEL 2019-01-22 05:01:008.1[facility]CHEM [id number] 05:01:00 Test Item Value Reference Range Interpretation Comments B/C Ratio (test code = B/C Ratio) 20 1 6-25 [facility] [id number] 05:01:00 Test Item Value Reference Range Interpretation Comments A/G Ratio (test code = A/G Ratio) 1.0 1 0.7-1.6 [facility] [id number] 05:01:004.1[facility]annCHEM PANEL 2019-01-22 05:01:006.90[facility] [id number] 05:01:00Negative *NA*(01/22/19 12:01 AM)[facility] [id number] 05:01:000.1[facility] YtlwkdzXSDRXYABPM5098-08-29 05:01:000.7[facility] LoxjbtyFMTJRRQEAK6346-49-27 05:01:000.0[facility] [id number] 14:36:00 Test Item Value Reference Range Interpretation [...] 0.00-0.01 N code = ETOHU) Comprehensive Metabolic [id number] 14:36:00 Test Item Value Reference Range Interpretation [...] the [employer],http :[email or web address] ep.nih.gov Urinalysis [id number] 14:32:00 Test Item Value Reference Range Interpretation Comments Color (test code = COLOR) Yellow Yellow,Straw,Pl N yellow Clarity (test code = Clear Clear N CLAR) Specific [place] (test 1.024 1.001-1.035 N code = SPGR) [...] code = Few /HPF BACT) CBC with Nrlgawqkvejp6591-23-19 14:21:00 Test Item Value Reference Range Interpretation [...] code = ALYMPH) 3.0 K/cumm 0.5-4.6 N [place] Abs (test code = AMONO) 0.5 K/cumm 0.0-1.2 N Eos Abs (test code = AEOS) 0.19 K/cumm 0.00-0.74 N Baso Abs (test code = ABASO) 0.1 K/cumm 0.00-0.21 N
[2021-09-26] MEDS ORDERED: hydrOXYzine HCL 25 MG TAB ONE (02:08)
[2021-09-26] MEDS ORDERED: OLANZapine 10 MG TABLET ONE (02:12)
--- NOTE | 2021-09-26 02:45 | EDPHYS ---
Physician Documentation [facility] Name: Tiffany Quinn Age: 51 yrs Sex: Female : 1970 Arrival Date: 09/26/2021 Time: 01:29 Bed 11 Private MD: ED Physician Bill Palm HPI: 09/26 01:58 This 51 yrs old Female presents to ER via EMS with complaints of Anxiety. jr8 01:58 This is a 51-year-old female with a history of anxiety that has been to the emergency jr8 room recently several times over the last few days for anxiety. Patient is a frequent methamphetamine abuser as well. Patient stated that she had last used about a day and a half ago. Had taken her hydroxyzine earlier today but started to feel very anxious tonight. Denies any other symptoms at this time.. Historical: - Allergies: 02:00 Pepcid; lp1 02:00 Toradol; lp1 - Home Meds: 02:00 Vraylar oral [Active]; Phenergan Oral [Active]; hydroxyzine HCl Oral [Active]; lp1 - PMHx: 02:00 ADD; Anxiety; Bipolar disorder; lp1 - PSHx: 02:00 Cholecystectomy; hernia repair; lp1 - Immunization history:: Adult Immunizations unknown. - Social history:: Smoking status: Patient denies any tobacco usage or history of. Patient uses street drugs, Methamphetamine (Meth). ROS: 01:58 Eyes: Negative for injury, pain, redness, and discharge, ENT: Negative for injury, jr8 pain, and discharge, Neck: Negative for injury, pain, and swelling, Cardiovascular: Negative for chest pain, palpitations, and edema, Respiratory: Negative for shortness of breath, cough, wheezing, and pleuritic chest pain, Abdomen/GI: Negative for abdominal pain, nausea, vomiting, diarrhea, and constipation, Back: Negative for injury and pain, MS/Extremity: Negative for injury and deformity, Skin: Negative for injury, rash, and discoloration, Neuro: Negative for headache, weakness, numbness, tingling, and seizure. 01:58 Psych: Positive for anxiety. Exam: 01:58 Eyes: Pupils equal round and reactive to light, extra-ocular motions intact. Lids and jr8 lashes normal. Conjunctiva and sclera are non-icteric and not injected. Cornea within normal limits. Periorbital areas with no swelling, redness, or edema. ENT: Nares patent. No nasal discharge, no septal abnormalities noted. Tympanic membranes are normal and external auditory canals are clear. Oropharynx with no redness, swelling, or masses, exudates, or evidence of obstruction, uvula midline. Mucous membranes moist. Neck: Trachea midline, no thyromegaly or masses palpated, and no cervical lymphadenopathy. Supple, full range of motion without nuchal rigidity, or vertebral point tenderness. No Meningismus. Cardiovascular: Regular rate and rhythm with a normal S1 and S2. No gallops, murmurs, or rubs. Normal PMI, no JVD. No pulse deficits. Respiratory: Lungs have equal breath sounds bilaterally, clear to auscultation and percussion. No rales, rhonchi or wheezes noted. No increased work of breathing, no retractions or nasal flaring. Abdomen/GI: Soft, non-tender, with normal bowel sounds. No distension or tympany. No guarding or rebound. No evidence of tenderness throughout. Back: No spinal tenderness. No costovertebral tenderness. Full range of motion. Skin: Warm, dry with normal turgor. Normal color with no rashes, no lesions, and no evidence of cellulitis. MS/ Extremity: Pulses equal, no cyanosis. Neurovascular intact. Full, normal range of motion. Neuro: Awake and alert, GCS 15, oriented to person, place, time, and situation. Cranial nerves II-XII grossly intact. Motor strength 5/5 in all extremities. Sensory grossly intact. Cerebellar exam normal. Normal gait. 01:58 Psych: Behavior/mood is anxious, Affect is calm, Oriented to person, place, time, Patient has no thoughts/intents to harm self or others. Judgement / Insight is normal. Memory is normal. Delusions/hallucinations are not present. Vital Signs: 02:04 BP 132 / 91; Pulse 97; Resp 18; Temp 97.7(O); Pulse Ox 99% on R/A; Weight 71.67 kg (R); lp1 Height 5 ft. 3 in. (160.02 cm); Pain 0/10; 02:04 Body Mass Index 27.99 (71.67 kg, 160.02 cm) lp1 MDM: 01:55 Patient medically screened. [facility] 01:58 Data reviewed: vital signs, nurses notes, and as a result, I will discharge patient. jr8 Data interpreted: Pulse oximetry: on room air is 100 %. Interpretation: normal. Counseling: I had a detailed discussion with the patient and/or guardian regarding: the historical points, exam findings, and any diagnostic results supporting the discharge/admit diagnosis, the need for outpatient follow up, a psychiatrist, to return to the emergency department if symptoms worsen or persist or if there are any questions or concerns that arise at home. Administered Medications: 02:22 Drug: hydrOXYzine 50 mg Route: PO; lp1 02:22 Drug: ZyPREXA 10 mg Route: PO; lp1 Disposition: 08:35 Co-signature as Attending Physician, Bill Palm MD I agree with the assessment and [facility] plan of care. Disposition Summary: 09/26/21 02:44 Discharge Ordered Location: Home jr8 Problem: new jr8 Symptoms: have improved jr8 Condition: Stable jr8 Diagnosis - Anxiety disorder, unspecified jr8 Followup: jr8 - With: Private Physician - When: 1 - 2 days - Reason: Recheck today's complaints, Continuance of care, Re-evaluation by your physician Discharge Instructions: - Discharge Summary Sheet jr8 - Panic Attack jr8 - Generalized Anxiety Disorder, Adult jr8 Forms: - Medication Reconciliation Form jr8 - Thank You Letter jr8 - Antibiotic Education jr8 - Prescription Opioid Use jr8 Signatures: Bill Palm MD MD cha Pena, Laura RN RN lp1 Guanako Palomino PA PA jr8
--- NOTE | 2021-09-26 02:45 | ER ---
Nurse's Notes [facility] Name: Tiffany Quinn Age: 51 yrs Sex: Female : 1970 Arrival Date: 09/26/2021 Time: 01:29 Bed 11 Private MD: Diagnosis: Anxiety disorder, unspecified Presentation: 09/26 01:55 Chief complaint: EMS states: Called for patient with anxiety, reporting she needs some lp1 Ativan; Patient reports "I need some Ativan for my anxiety"; Reports not relief with Hydroxizine. 01:55 Method Of Arrival: EMS: [facility] lp1 01:55 Acuity: MANUEL 4 lp1 02:04 Coronavirus screen: At this time, the client does not indicate any symptoms associated lp1 with coronavirus-19. Ebola Screen: No symptoms or risks identified at this time. Initial Sepsis Screen: Does the patient meet any 2 criteria? No. Patient's initial sepsis screen is negative. Does the patient have a suspected source of infection? No. Patient's initial sepsis screen is negative. Risk Assessment: Do you want to hurt yourself or someone else? Patient reports no desire to harm self or others. Onset of symptoms was September 26, 2021. Historical: - Allergies: 02:00 Pepcid; lp1 02:00 Toradol; lp1 - Home Meds: 02:00 Vraylar oral [Active]; Phenergan Oral [Active]; hydroxyzine HCl Oral [Active]; lp1 - PMHx: 02:00 ADD; Anxiety; Bipolar disorder; lp1 - PSHx: 02:00 Cholecystectomy; hernia repair; lp1 - Immunization history:: Adult Immunizations unknown. - Social history:: Smoking status: Patient denies any tobacco usage or history of. Patient uses street drugs, Methamphetamine (Meth). Screenin:03 Abuse screen: Denies threats or abuse. Denies injuries from another. Nutritional lp1 screening: No deficits noted. Tuberculosis screening: No symptoms or risk factors identified. Fall Risk None identified. Assessment: 02:03 General: Reports "I haven't done meth since the day before yesterday". lp1 02:05 General: Appears unkempt, Behavior is anxious, restless. Pain: Denies pain. Neuro: lp1 Level of Consciousness is awake, alert, obeys commands, Oriented to person, place, time, situation, Gait is steady. Cardiovascular: Patient's skin is warm and dry. Respiratory: Respiratory effort is even, unlabored. GI: No signs and/or symptoms were reported involving the gastrointestinal system. : No signs and/or symptoms were reported regarding the genitourinary system. EENT: No signs and/or symptoms were reported regarding the EENT system. Derm: Skin is intact, Skin is dry, Skin is normal. Musculoskeletal: No deficits noted. 02:30 Reassessment: Patient is alert, oriented x 3, equal unlabored respirations, skin bb warm/dry/pink. pt discharged but will wait for daylight prior to leaving. Vital Signs: 02:04 BP 132 / 91; Pulse 97; Resp 18; Temp 97.7(O); Pulse Ox 99% on R/A; Weight 71.67 kg (R); lp1 Height 5 ft. 3 in. (160.02 cm); Pain 0/10; 02:04 Body Mass Index 27.99 (71.67 kg, 160.02 cm) lp1 ED Course: 01:29 Patient arrived in ED. bp1 01:55 Lora Lozada, RN is Primary Nurse. lp1 01:55 Bill Palm MD is Attending Physician. [facility] 01:56 Triage completed. lp1 01:57 Guanako Palomino PA is PHCP. jr8 01:59 Arm band placed on. lp1 02:05 Patient has correct armband on for positive identification. lp1 Administered Medications: 02:22 Drug: hydrOXYzine 50 mg Route: PO; lp1 02:22 Drug: ZyPREXA 10 mg Route: PO; lp1 Outcome: 02:44 Discharge ordered by . jr8 04:24 Patient left the ED. bb Signatures: Bill Palm MD MD cha Ballard, Brenda, RN RN bb Lora Lozada RN RN lp1 Guanako Palomino PA PA jrSofia Matos bp1
[2021-09-26 04:33] VITALS: BP 132/91; TEMP 97.7; O2SAT 99
== END 2021-09-26 04:24 | disposition home or self-care (01) ==
LOC: ER 01:25
DX: F41.9 Anxiety disorder, unspecified (principal)
CPT/HCPCS: 99283

== ENCOUNTER 2021-09-26 13:55 | Emergency (ER) | payer OTHER ==
--- OUTSIDE RECORDS SUMMARY | 2021-09-26 14:11 | XMS REPORT | Continuity of Care Document ---
:1970 Author Organization [facility] t Address [address] [place] [address] Care Team Providers Name Role Phone UNKNOWN [...] Policy Number Effective Date Expiration Date S [facility] OF [place] - [id number] 2020 [place] 00:00:00 (MEDICARE REPLACEMENT/ADVANT AGE - [...] 00 GASTROENTE RITIS AND COLITIS Active 01/21/2019 [facility] Irregular Irregular Disease Active Uni vers menstrual menstrual 8-15 ity of cycle cycle 00:00: [address] Skin Skin Disease Active Univers lesion lesion 8-15 ity of 00:00: [address] Psychiatri Psychiatri Disease Active U nivers c disorder c disorder 8-15 it y of 00:00: [address] Well woman Well woman Disease Active U nivers exam with exam with 8-15 ity of routine routine 00:00: [place] gynecologi gynecologi 00 Me dical nicky exam nicky exam Branch INFECTIOUS Diagnosis Active 2019-02-06 Memoria GASTROENTE 08:58:00 l RITIS AND Yonis COLITIS, INFECTIOUS GASTROENTE RITIS AND COLITIS, Active [facility] Allergies, Adverse Reactions, Alerts Allergy Allergy Status Severity Reaction(s) Onset Inactive Treating Comm ents Source Name Type Date Date Clinician Phenerga Phenerga Active Memori a n n l Yonis NO KNOWN Drug Active Univers ALLERGIE Class ity of S [facility] Social History Social Habit Start Date Stop Date Quantity Comments Source History of Cigarette Smoker Universi ty of tobacco use [facility] Tobacco Comment 2-3 [facility]s [facility] Exposure to Not sure [place] of SARS-CoV-2 [facility] (event) [place] Tobacco use and 2016-06-08 2016-06-08 [facility] 00:[facility]:00 00:00:00 [facility] Alcohol intake 2016-06-08 2016-06-08 0 /d University of 00:00:00 00:00:00 [facility] Sex Ass[birth year] At [birth year] Universit y of 00:00:00 00:00:00 [facility] Smoking Status Start Date Stop Date Source Social History 2019-01-22 05:00:12 [facility] Her urena Current some day smoker 2016-06-08 00:00:00 [facility] Medications Ordered Filled Start Stop Current Ordering Indication Dosage Frequency Signature Comments Components Source Medication Medication Date Date Medication? Clinician (SIG) Name Name cefTRIAXone 2020-10- No 1000mg 1,000 mg, Univers (ROCEPHIN) 17 11-17 IV ity of 1,000 mg in 08:30: 08:01 [place], [place] NaCl 0.9% 00 :00 ONCE, 1 [...] 09/09/21 at 2330, RANDA amoxicillin 2020-10 Yes [id number] 500mg Take 1 Univers 500 mg 11-10 capsule by ity of capsule 00:00: mouth 3 [place] 00 (three) Medical times Branch daily. ondansetron 2019-10- No 4mg 4 mg, [facility] ers (ZOFRAN-ODT 12-01 Oral, ity of ) 15:15: 14:16 ONCE, 1 [place] disintegrat 00 :00 dose, Mon Med ical ing tablet 09/30/20 at [facility] 4 mg 0915, Routine ondansetron 2019-10- No 4mg 4 mg, [facility] ers (ZOFRAN-ODT 12-01- Oral, ity of ) 14:30: 13:32 ONCE, 1 [place] disintegrat 00 :00 dose, Mon Med ical ing tablet 09/30/20 at [facility] nc 4 mg 0830, Routine ondansetron 2019-10 Yes [id number] 4mg Take 1 Univers 4 mg 2-07 tablet by ity of disintegrat 00:00: mouth [place] ing tablet 00 every 8 Medica l (eight) Branch hours as needed for Nausea and Vomiting (N/V). ondansetron 2019-10 Yes [id number] 4mg Take 1 Univers 4 mg 2-07 tablet by ity of disintegrat 00:00: mouth [place] ing tablet 00 every 8 Medica l (eight) Branch hours as needed for Nausea and Vomiting (N/V). ondansetron 2019-10 Yes [id number] 4mg Take 1 Univers 4 mg 2-07 tablet by ity of disintegrat 00:00: mouth [place] ing tablet 00 every 8 Medica l (eight) Branch hours as needed for Nausea and Vomiting (N/V). ondansetron 2019-10 Yes [id number] 4mg Take 1 Univers 4 mg 2-07 tablet by ity of disintegrat 00:00: mouth [place] ing tablet 00 every 8 Medica l (eight) Branch hours as needed for Nausea and Vomiting (N/V). ciprofloxac 2019 Yes 500 mg = 1 Memoria in 500 mg 4-04 tab, PO, l oral tablet 17:35: [id number], X [place] 00 4 day, # 8 tab, 0 [...] 4-04 tab, PO, l oral tablet 17:35: [id number], X [place] 00 4 day, # 8 tab, 0 Refill(s) Ondansetron 2018- Yes 4 mg = 1 Me moria 4 MG Oral 4-04 tab, PO, l Tablet 17:35: Q6H, PRN [place] [Zofran] 00 Nausea/Vom iting, # 20 tab, [...] s with feeding tube less than 14 [place] (Dobhoff, J-tube etc) and pediatric and patients. [...] s with feeding tube less than 14 [place] (Dobhoff, J-tube etc) and pediatric and patients. Strattera No 0.5 mg/kg, Me moria 01-24 Route: PO, l 14:00: QAM, [place] Dosing Weight 75, kg, Start date: 01/24/19 [...] ia 4- (Same As: l 18:00: KlonoPIN) [place] Flagyl No Notes: Memoria 4- (Same as: l 15:00: Flagyl) Yonis 00 Take with food/ avoid alcohol Cipro No Notes: May Memori a - interfere l 15:00: w/enteral Yonis 00 feedings - Take 1 hr before or 2 hrs after antacids, dairy pdt & minerals. On empty stomach. Flagyl No Notes: Memoria 4- (Same as: l 15:00: Flagyl) [place] 00 Take with food/ avoid alcohol Cipro No Notes: February Memori a 4- interfere l 15:00: w/enteral [place] 00 feedings - Take 1 hr before [...] PO, ONCE, l mEq oral 14:20: 0 [place] tablet, 00 Refill(s) extended release Metronidazo No 500 mg, Mem oria le 500 MG 4-01 PO, l Oral Tablet 14:20: [id number], 0 H ermann [Flagyl] 00 Refill(s) Ciprofloxac No 500 mg, Mem oria in 500 MG 01 PO, l Oral Tablet 14:20: [id number], 0 [place] [Cipro] 00 Refill(s) potassium Yes 40 mEq, Memor ia chloride 20 -01 PO, ONCE, l mEq oral 14:20: 0 [place] tablet, 00 Refill(s) extended release Metronidazo No 500 mg, Mem oria le 500 MG 4-01 PO, l Oral Tablet 14:20: [id number], 0 H ermann [Flagyl] 00 Refill(s) Ciprofloxac No 500 mg, Mem oria in 500 MG 4-01 PO, l Oral Tablet 14:20: [id number], 0 [place] [Cipro] 00 Refill(s) Potassium No Notes: Memori [...] s with feeding tube less than 14 [place] (Dobhoff, J-tube etc) and pediatric and patients. [...] s with feeding tube less than 14 [place] (Dobhoff, J-tube etc) and pediatric and patients. [...] tab, PO, l Tablet 21:08: BID, 0 [place] [Risperdal] 00 Refill(s) Strattera Yes 0.5 mg/kg, [...] tab, PO, l Tablet 21:08: BID, 0 [place] [Risperdal] 00 Refill(s) Zosyn No Notes: Memoria [...] oria 3-31 to exceed l 15:03: 400mg/day. [place] 00 (Same As: Ultram) Tramadol No Notes: [...] 01-22 Route: IM, l 09:47: Drug form: [place] 00 PDR/INJ, PRN, Dosing Weight 75.994, kg, [...] Memoria 3-31 (Same as: l 08:56: Zofran) [place] MEDICATION WASTE Product Size: 4 mg Product [...] moria IV - 1,000 l 05:44: ml/hr, [place] 00 Infuse Over: 1 hr, Route: IV, [...] 0.9% 3-31 Same as: l 04:52: BD [place] Posiflush Sterile NS (Bolus) No 1,000 mL, Me moria IV 3-31 1,000 l 04:51: ml/hr, Yon[place] 00 Infuse Over: 1 hr, Route: IV, 1,000, Drug form: INJ, ONCE, Priority: STAT, Dosing Weight 75.994 kg, Start date: 01/21/19 23:51:00 CDT, Stop date: 01/21/19 23:51:00 CDT NS (Bolus) No 1,000 mL, Me moria IV 01-22 1,000 l 04:51: ml/hr, [place] 00 Infuse Over: 1 hr, Route: IV, [...] by ity of mg tablet 14:02: mouth [place] [address] every 6 Medical (six) Branch hours as needed. CLONAZEPAM 2016-0 Yes Take by Uni vers (KLONOPIN 8-15 mouth. ity of ORAL) 14:02: [address] Branch CITALOPRAM 2016-0 Yes Take by Uni vers HYDROBROMID 8-15 mouth. ity of E 14:02: [place] (CITALOPRAM 27 Medical ORAL) Branch ibuprofen 2016-0 Yes 200mg Take 200 Uni vers (ADVIL) 200 8-15 mg by ity of mg tablet 14:02: mouth [place] [address] every 6 Medical (six) Branch hours as needed. CLONAZEPAM 2016-0 Yes Take by Uni vers (KLONOPIN 8-15 mouth. ity of ORAL) 14:02: [address] Branch CITALOPRAM 2016-0 Yes Take by Uni vers HYDROBROMID 8-15 mouth. ity of E 14:02: [place] (CITALOPRAM 27 Medical ORAL) Branch ibuprofen 2016-0 Yes 200mg Take 200 Uni vers (ADVIL) 200 8-15 mg by ity of mg tablet 14:02: mouth [place] [address] every 6 Medical (six) Branch hours as needed. CLONAZEPAM 2016-0 Yes Take by Uni vers (KLONOPIN 8-15 mouth. ity of ORAL) 14:02: [place] [address] Medical Branch CITALOPRAM 2016-0 Yes Take by [...] 2021-09-10 08:01:00 138 mm[Hg] Univer sity of [facility] Diastolic blood 2021-09-10 08:01:00 97 mm[Hg] Unive rsity of [facility] Heart rate 2021-09-10 08:01:00 87 /min [facility] Respiratory rate 2021-09-10 08:01:00 20 /min [facility] Oxygen saturation in 2021-09-10 08:01:00 98 /min University of Arterial blood by [place] Enkia [facility] Pulse oximetry Branch Body temperature 2021-09-10 04:28:51 37.17 Ruthann [facility] Body height 2021-09-10 04:26:00 154.9 cm [facility] Body weight 2021-09-10 04:26:00 81.647 kg [facility] BMI 2021-09-10 04:26:00 34.01 kg/m2 [facility] Systolic blood 2021-09-09 20:06:00 150 mm[Hg] Univer sity of [facility] Diastolic blood 2021-09-09 20:06:00 89 mm[Hg] Unive rsity of [facility] Heart rate 2021-09-09 20:06:00 108 /min [facility] Body temperature 2021-09-09 20:06:00 37.22 Ruthann [facility] Respiratory rate 2021-09-09 20:06:00 18 /min [facility] Oxygen saturation in 2021-09-09 20:06:00 99 /min University of Arterial blood by [facility] nicky Pulse oximetry Branch Body weight 2021-09-09 [...] Systolic (mm Hg) 2019-01-28 01:16:00 Estrada rial [place] Diastolic (mm Hg) 2019-01-28 01:16:00 Mem orial [place] Heart Rate 2019-01-28 01:16:00 Memorial [place] Respitory Rate 2019-01-28 01:16:00 Memori al [place] Systolic (mm Hg) 2019-01-27 20:42:00 Estrada rial [place] Diastolic (mm Hg) 2019-01-27 20:42:00 Mem orial [place] Heart Rate 2019-01-27 20:42:00 Memorial [place] Respitory Rate 2019-01-27 20:42:00 Memori al [place] Temperature Oral (F) 2019-01-27 20:42:00 98.5 F Memorial Yonis Systolic (mm Hg) 2019-01-27 17:00:00 Estrada rial [place] Diastolic (mm Hg) 2019-01-27 17:00:00 Mem orial [place] Temperature Oral (F) 2019-01-27 17:00:00 98.5 F Memorial Yon[place] Heart Rate 2019-01-27 17:00:00 Memorial [place] Respitory Rate 2019-01-27 [facility] Height 2019-01-22 14:35:00 157.48 cm [facility] BMI Calculated 2019-01-22 14:35:00 [facility] Weight 2019-01-22 14:35:00 [facility] [place] Weight 2019-01-22 04:34:00 [facility] Procedures Procedure Date / Time Performing Clinician Source Performed URINALYSIS 2021-09-10 06:03:00 Neena Rogers [facility] URINE DRUG (IMMUNOASSAY) 2021-09-10 06:03:00 Neena [facility] SCREEN W/O REFLEX XR CHEST 1 VW 2021-09-10 04:57:30 Neena Rogers [facility] CREATINE KINASE 2021-09-10 04:39:00 Neena Rogers [facility] MAGNESIUM 2021-09-10 04:39:00 Neena Rogers [facility] TROPONIN I 2021-09-10 04:39:00 Neena Rogers [facility] COMP. METABOLIC PANEL 2021-09-10 04:39:00 Neena Rogers [facility] ([id number]) Medical [place] CBC WITH DIFF 2021-09-10 04:39:00 Neena Rogers [facility] PROTHROMBIN TIME / INR 2021-09-10 04:39:00 [facility] ACTIVATED PARTIAL 2021-09-10 04:39:00 Ne[facility] THRMPLAS [facility] N-TERMINAL PRO-BNP 2021-09-10 04:39:00 Neena Rogers [facility] COVID-19 (ID NOW RAPID 2021-09-10 04:39:00 [facility] TESTING) Medical Branch TROPONIN I 2021-09-09 21:49:00 [facility] COMP. METABOLIC PANEL 2021-09-09 21:49:00 [facility] Luanne [facility] ([id number]) Medical Branch LITHIUM 2021-09-09 21:49:00 [facility] CBC WITH DIFF 2021-09-09 21:49:00 [facility] CONSENT/REFUSAL FOR 2021-09-09 19:51:22 Doctor Unassigned, No Un [facility] DIAGNOSIS AND TREATMENT Name [facility] Branch URINALYSIS 2020-09-30 13:27:00 [place], [facility] ADC,CLC OR LCC ONLY - 2020-09-30 13:27:00 JacksonChuy aleman [facility] INFLUENZA A & B DIRECT Medical B ranch ANTIGEN COVID-19 (ID NOW RAPID 2020-09-30 13:27:00 [place] Chuy [facility] TESTING) Medical Branch Encounters Start End Encounter Admission Attending Care Care Encounter Source Date/Time Date/Time Type Type Clinicians Facility Department ID 2019-01-22 Inpatient E [facility] MED [id number] [facility] W 04:39:00 2021-09-09 2021-09-10 Emergency DENIA Rogers [id number] Univers 22:20:00 03:02:00 Neena JIMENEZ 350.1.13.10 i ty of [place] 4.2.7.2.686 [facility] [id number] [facility] nicky 084 Branch 2021-09-09 2021-09-10 Emergency X DENIA ROGERS ERT [id number] Univers 22:20:00 03:02:00 NEENA tubbs [facility] 2021-09-09 2021-09-10 Emergency X SANCHEZ [facility] ERT [id number] Univers 22:20:00 03:02:00 NEENA tubbs [facility] 2021-09-09 2021-09-09 Emergency Julia [facility] [id number] Univers 14:07:00 17:35:00 Luanne JIMENEZ 350.1.13.10 i ty of [place] 4.2.7.2.686 [facility] [id number] [address] 2021-09-09 2021-09-09 Orders Doctor BELKYS [id number] Univers 00:00:00 00:00:00 Only Unassigned, LANA 350.1.13.10 ity of [place] [facility] 4.2.7.[address] [facility] [id number] [address] 2020-09-30 2020-09-30 [facility] [id number] 07:22:00 08:18:00 Chuy Jimenez 350.1.13.10 [place] 4.2.7.2.686 [place] [id number] [facility] 2020-09-30 2020-09-30 Emergency [facility] [id number] Univers 07:22:00 08:18:00 Chuy Jimenez 350.1.13.10 i ty of [place] 4.2.7.2.686 [facility] [id number] [address] 2020-09-30 2020-09-30 Emergency X [facility] ERT [id number] Univers 07:22:00 07:22:00 CHUY tubbs [facility] 2020-04-05 2020-04-05 Outpatient Humaira-Mbayo VFP P [address] [place] [id number] 05:44:00 05:44:00 _A_AH 97526 Family Practic e 2020-04-05 2020-04-05 Outpatient Humaira-Mbayo VFP VFP [id number] 05:44:00 05:44:00 _A_AH 83911 Family Practic e 2020-04-05 2020-04-05 Outpatient Humaira-Alekso VFP VFP [id number] [id number] [facility] 05:44:00 05:44:00 _A_AH 95407 Family Practic e 2020-04-05 2020-04-05 Outpatient Humaira-Alekso VFP VFP [id number] [id number] [facility] 05:44:00 05:44:00 _A_AH 70034 Family Practic e 2020-03-04 2020-03-14 Inpatient 3 Ronni Eldridge [facility] PSY [id number] 15:38:00 15:25:00 Chente [facility] 2019-12-13 2019-12-13 Outpatient Humaira-Alekso [facility]FP VFP [facility] 07:22:00 07:22:00 _A_ [id number] Family Practic e 2019-01-22 2019-01-28 Inpatient [facility] [id number] Memoria 04:33:00 04:40:00 martin Somers 00 l [facility] 2018-02-21 2018-02-20 [facility] [id number] 14:48:00 13:18:00 [facility] Results Test Description Test Time Test Comments Results Result Comments Source TROPONIN I 2021-09-10 05:26:53 Test Item Value Reference Range Interpretation Comme nts TROPONIN I (test code = 0.003 ng/mL See_Comment [Au tomated message] The 0268364975) system which ge nerated this result tra [...] biotin. Lab Interpretation Normal (test code = 04243-1) [id number] 05:24:16 Test Item Value Reference Range Interpretation Comments NT-proBNP (test code 35 pg/mL See_Comment [Autom ated = 9956196624) message] The system which generated this result transmitted reference range : <=125. The reference range was not used to interpret this result as normal/abnormal . PERRY (test code = PERRY) Biotin has been reported to cause a negative bias, interpret results relative to patient's use of biotin. Lab Interpretation Normal (test code = 80876-5) [facility]-17 05:16:51 Test Item Value Reference Range Interpretation Comments MAGNESIUM (test code = 0556136414) 1.8 mg/dL 1.7-2.4 Lab Interpretation (test code = Normal 74560-0) [facility] (89568)2021-09-10 05:16:31 Test Item Value Reference Range Interpretation Comments NA (test code = 139 mmol/L 135-145 8841150878) K (test code = 4.0 mmol/L 3.5-5.0 9294870941) CL (test code = 108 mmol/L 98-108 6577544347) CO2 TOTAL (test code 25 mmol/L 23-31 = 6650821328) AGAP (test code = 2-16 0781810426) BUN (test code = 14 mg/dL 7-23 5152128347) GLUCOSE (test code = 88 mg/dL 70-110 5699019899) CREATININE (test code 0.89 mg/dL 0.50-1.04 = 4183370830) TOTAL BILI (test code 0.5 mg/dL 0.1-1.1 = 6445184339) CALCIUM (test code = 10.3 mg/dL 8.6-10.6 1141097562) T PROTEIN (test code 6.9 g/dL 6.3-8.2 = 3431014626) ALBUMIN (test code = 4.3 g/dL 3.5-5.0 2734332827) ALK PHOS (test code = 72 U/L 34-122 8686791027) ALTv (test code = 17 U/L 35 1742-6) AST(SGOT) (test code 29 U/L 13-40 = 3182117755) eGFR (test code = mL/min/1.73m2 9177444871) PERRY (test code = PERRY) Association of [...] or urine or abnormalities in imaging tests). [facility] [id number] 05:16:16 Test Item Value Reference Range Interpretation Comments CK (test code = 1732788897) 267 U/L 33-194 H Lab Interpretation (test code = Abnormal 60457-6) [facility] THRMPLAS [id number] 05:05:32 Test Item Value Reference Range Interpretation [...] seconds. Lab Interpretation Normal (test code = 51341-8) [facility] / [id number] 05:03:30 Test Item Value Reference Range Interpretation [...] tions. Lab Interpretation (test Normal code = 70675-8) [facility] WITH [id number] 04:57:13 Test Item Value Reference Range Interpretation Comments WBC (test code = See_Comment [Automated 7590-2) message] The sy stem which generated this result transmitted reference range : 4.30 - 11.10 10*3/?L. The reference range was not used to interpret this result as normal/abnormal . RBC (test code = See_Comment [Automated 649-8) message] The sy stem which generated this [...] RDW-SD (test code = 41.2 fL 39.0-49.9 98828-5) RDW-CV (test code = 13.0 % 12.0-15.5 788-0) PLT (test code = See_Comment H [Automated 777-3) message] The sy stem which generated this result transmitted reference range : 166 - 358 10*3/ ?L. The reference r katie was not used to interpret this result as normal/abnormal . MPV (test code = 9.6 fL 9.5-12.9 43372-0) NRBC/100 WBC (test See_Comment [Automat ed code = 1602075790) message] The system which generated this result transmitted reference range : 0.0 - 10.0 /100 WBCs. The refer ence range was not u sed to interpret th is result as normal/abnormal . NRBC x10^3 (test code <0.01 See_Comment [Auto mated = 2497861067) message] The s ystem which generated this result transmitted reference range : 10*3/?L. The reference range was not used to interpret this result as normal/abnormal . GRAN MAT (NEUT) % 61.9 % (test code = 770-8) IMM GRAN % (test code 0.30 % = 4742641880) LYMPH % (test code = 26.0 % 736-9) MONO % (test code = 9.5 % 5905-5) EOS % (test code = 1.6 % 713-8) BASO % (test code = 0.7 % 706-2) GRAN MAT x10^3(ANC) 5.91 10*3/uL 1.88-7.09 (test code = 6504004258) IMM GRAN x10^3 (test 0.03 10*3/uL 0.00-0.06 code = 4501116569) LYMPH x10^3 (test code 2.48 10*3/uL 1.32-3.29 = 731-0) MONO x10^3 (test code 0.91 10*3/uL 0.33-0.92 = 742-7) EOS x10^3 (test code = 0.15 10*3/uL 0.03-0.39 711-2) BASO x10^3 (test code 0.07 10*3/uL 0.01-0.07 = 704-7) Lab Interpretation Abnormal (test code = 08614-0) [facility] [id number] 22:24:55 Test Item Value Reference Interpretation Comments Range TROPONIN I (test 0.002 ng/mL See_Comment [Automated code = 1914181883) message] The system which generated this result [...] biotin. Lab Interpretation Normal (test code = 69421-1) [facility]16 22:24:34 Test Item Value Reference Range Interpretation Comments [place] (test code = <0.2 0.6-1.2 L 3051497812) PERRY (test code = PERRY) Toxic Range: ? Greater than 1.2 mmol/L Lab Interpretation (test Abnormal code = 25679-5) [facility]OL[facility] PAN[facility] (07930)2021-09-09 22:13:54 Test Item Value Reference Range Interpretation Comments NA (test code = 139 mmol/L 135-145 7946866969) K (test code = 4.0 mmol/L 3.5-5.0 1671349879) CL (test code = 105 mmol/L 98-108 1391614258) CO2 TOTAL (test code 26 mmol/L 23-31 = 4866319159) AGAP (test code = 2-16 5614188077) BUN (test code = 11 mg/dL 7-23 5591331009) GLUCOSE (test code = 109 mg/dL 70-110 8238699230) CREATININE (test code 0.71 mg/dL 0.50-1.04 = 5460146317) TOTAL BILI (test code 0.6 mg/dL 0.1-1.1 = 1813801333) CALCIUM (test code = 10.4 mg/dL 8.6-10.6 8950540913) T PROTEIN (test code 7.6 g/dL 6.3-8.2 = 0647854286) ALBUMIN (test code = 4.7 g/dL 3.5-5.0 4836172184) ALK PHOS (test code = 78 U/L 34-122 4356152672) ALTv (test code = 19 U/L 5-35 1742-6) AST(SGOT) (test code 28 U/L 13-40 = 8450529984) eGFR (test code = mL/min/1.73m2 6648012175) PERRY (test code = PERRY) Association of [...] tests). [facility] WITH [id number] 22:03:32 Test Item Value Reference Range Interpretation Comments WBC (test code = See_Comment [Automated 3190-2) message] The sy stem which generated this [...] RDW-SD (test code = 40.2 fL 39.0-49.9 40379-3) RDW-CV (test code = 12.9 % 12.0-15.5 788-0) PLT (test code = See_Comment H [Automated 777-3) message] The sy stem which generated this result transmitted reference range : 166 - 358 10*3/ ?L. The reference r katie was not used to interpret this result as normal/abnormal . MPV (test code = 9.4 fL 9.5-12.9 L 17526-2) NRBC/100 WBC (test See_Comment [Automat ed code = 2952996265) message] The system which generated this result transmitted reference range : 0.0 - 10.0 /100 WBCs. The refer ence range was not u sed to interpret th is result as normal/abnormal . NRBC x10^3 (test code <0.01 See_Comment [Auto mated = 1314295952) message] The s ystem which generated this result transmitted reference range : 10*3/?L. The reference range was not used to interpret this result as normal/abnormal . GRAN MAT (NEUT) % 67.1 % (test code = 770-8) IMM GRAN % (test code 1.00 % = 2347292061) LYMPH % (test code = 21.4 % 736-9) MONO % (test code = 7.9 % 5905-5) EOS % (test code = 1.8 % 713-8) BASO % (test code = 0.8 % 706-2) GRAN MAT x10^3(ANC) 7.35 10*3/uL 1.88-7.09 H (test code = 7311157801) IMM GRAN x10^3 (test 0.11 10*3/uL 0.00-0.06 H code = 4681180901) LYMPH x10^3 (test code 2.34 10*3/uL 1.32-3.29 = 731-0) MONO x10^3 (test code 0.86 10*3/uL 0.33-0.92 = 742-7) EOS x10^3 (test code = 0.20 10*3/uL 0.03-0.39 711-2) BASO x10^3 (test code 0.09 10*3/uL 0.01-0.07 H = 704-7) Lab Interpretation Abnormal (test code = 67745-6) [facility] - INFLUENZA A & B DIRECT [id number] 14:04:00 Test Item Value Reference Range Interpretation Comments Influenza A (test code = 50541-6) Negative Negative Influenza B (test code = 29402-7) Negative Negative Lab Interpretation (test code = Normal 21001-6) [facility] (ID NOW RAPID TESTING)2020-09-30 14:03:00 Test Item Value Reference Range Interpretation Comments SARS-CoV-2 Rapid ID NOW Not Detected Not Detected (test code = 27576-4) PERRY (test code = PERRY) ID NOW COVID-19 Assay is an isothermal nucleic acid amplification test intended for the qualitative detection of nucleic acid from SARS-CoV-2 viral RNA in nasopharyngeal (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 It is used under Emergency Use [...] indicated. Lab Interpretation Normal (test code = 88736-9) [facility]00 Test Item Value Reference Range Interpretation Comments APPEARANCE (test code = Hazy Clear A 4845109212) COLOR (test code = Yellow Yellow 0809032804) PH (test code = 4.8-8.0 1803985957) SP GRAVITY (test code = 1.003-1.030 4656405626) GLU U QUAL (test code = Normal Normal 5488526613) BLOOD (test code = Negative Negative 5925048001) KETONES (test code = 5 mg/dL Negative A 2706650740) PROTEIN (test code = Negative Negative 2887-8) UROBILIN (test code = 2.0 mg/dL Normal A 9434780827) BILIRUBIN (test code = Negative Negative 3826363948) NITRITE (test code = Negative Negative 8939004413) LEUK ROZINA (test code = 25/uL Negative A 5855825585) RBC/HPF (test code = See_Comment [Autom ated message] 0965827195) The system [employer] generated this result transmit ngozi reference range : 0 - 3 HPF. The refe rence range was not u sed to interpret th is result as normal/abnormal . WBC/HPF (test code = See_Comment [Autom ated message] 5893774470) The system [employer] generated this result transmit ngozi reference range : 0 - 5 HPF. The refe rence range was not u sed to interpret th is result as normal/abnormal . BACTERIA (test code = Few Negative A 4187393085) MUCOUS (test code = Slight Negative LPF A 3756223454) SQ EPITH (test code = HPF 2278581261) Lab Interpretation (test Abnormal code = 11655-7) [facility] Nxlqxrioyzw0769-63-71 16:42:24 Test Item Value Reference Range Interpretation [...] = 10-24-2020 N Expiration Dt) Thyroid Stimulating Efjcwrb4049-89-77 08:35:16 Test Item Value Reference Range Interpretation Comments TSH (test code = TSH) 1.170 mIU/mL 0.270-4.200 Lipid Vzrcv2761-45-64 08:21:19 Test Item Value Reference Range Interpretation [...] calculation is LDL/HDL Ratio=L DL Calc/HDL Chol GHGFHRCDUPYT6681-55-63 08:24:008.6[facility] ZilugnzXVHWCZXRPPIF9425-41-41 08:24:22730Mwfmhxdf LkqnsjyZYVQZWHKRLPB6758-19-35 08:24:0027[facility] CIXKSBORDRNU0914-53-58 08:24:89355Jxkrtzbh MpoejmuAIBUQAUSHGJA3164-79-99 08:24:003.6[facility] OcyawbrZTHGHFPUDUYJ7588-46-21 08:24:000.70[facility] HSLOMPSODPUB0747-47-87 08:24:008.4[facility] RopnhmdDURNDJSIFJPB8495-11-05 08:24:10653Rlihyqhc BftwkxcWVNZXIWITYFO3324-45-82 08:24:0086[facility] RXVVVLTHBBMI3361-48-93 08:24:006[facility] VnsjzkwMPYXRXAIKW2901-05-52 08:24:00 11.6[facility] NqoibcaSNUVKGEMZA1756-42-54 08:24:003.78[facility]MAT[facility] 2019-01-26 08:24:0013.3[facility] QoljdzdFHTIJHFPVZ9142-18-92 08:24:0034.0[facility] FuzyhieDGUFVLNTTK6121-56-32 08:24:006.3[facility] NymccgvMNZNHIZITB9033-04-84 08:24:00 Test Item Value Reference Range Interpretation Comments MCH (test code = MCH) 30.7 pg 27.0-31.0 [facility] KuefpwwPFNAAUJQGG6670-43-08 08:24:0090.3[facility]annHEMATOLOGY 2019-01-26 08:24:0034.2[facility] MwzewbbRDFXYYVKBU3396-41-29 08:24:08709Kmldwlcs NpnzuyrGLKGMTIEXP9908-93-60 08:24:007.5[facility] TmnjvfkHWPQFYYUMYZX6035-26-09 08:24:008.6[facility] DoapfnhNYFROERMIKXX7550-56-51 08:24:96949Fvzabius Y[facility] EKYJUGIXTYPN2169-31-29 08:24:0027[facility] IuptzdlACNBUMWNQOUW0030-14-76 08:24:00 139[facility] DtpoproSBTMICWENPXB6277-55-42 08:24:003.6[facility] EQJPKVPMXRAU5083-95-98 08:24:000.70[facility] HdvykcrOFQAHHLLEFKQ7762-41-76 08:24:008.4[facility] TzpxgpcJWDIFYHZHXWK1668-36-97 08:24:71012Unreqdvr Y[facility] QCGMJIPESGAZ1727-13-20 08:24:0086[facility] IqrmstyPAUMFJPVGRGI4102-99-88 08:24:00 6[facility] EephzkjTZASOIACPC0923-29-88 08:24:0011.6[facility]annHEMATOLOGY 2019-01-26 08:24:003.78[facility] WpcqdjiHQEJKLJTIA3364-71-60 08:24:0013.3[facility] JsmpwnbCCJZAFCDWP2514-10-03 08:24:0034.0[facility] EjehsrpORHCMETROD6944-37-07 08:24:006.3[facility] EzlzlziFKDWUDURIH2154-47-42 08:24:00 Test Item Value Reference Range Interpretation Comments MCH (test code = MCH) 30.7 pg 27.0-31.0 [facility] PdufyreNTMDKNRCKP4818-76-77 08:24:0090.3[facility]annHEMATOLOGY 2019-01-26 08:24:0034.2[facility] XwdmhifXZGFKRNFOS5588-76-98 08:24:43867Tiirfnsc ScwngtsTXTWRVWUZP5887-81-53 08:24:007.5[facility] HermannCHEM MVVQG9787-27-25 09:14:39185Wotdxyqx HermannCHEM UBKWF8153-12-37 09:14:008.5[facility] HermannCHEM ROEXO2472-24-91 09:14:0013.3[facility]annCHEM ZYMKW3144-49-05 09:14:0024 [facility]annCHEM XNGYZ2415-03-24 09:14:47079Pzdlbmim HermannCHEM PANEL 2019-01-25 09:14:0081[facility]annCHEM JRYIC5043-11-07 09:14:002[facility]annCHEM UEXLO8804-80-20 09:14:003.3[facility]annCHEM ZRSZY0511-25-33 09:14:000.60[facility]annCHEM RCSEB8605-45-94 09:14:22158Niduzxlh HermannCHEM IUFUW0511-40-23 09:14:04639Bgbasvwk [facility]annCHEM UUWAP5815-48-17 09:14:008.5 [facility]annCHE[facility] JOBTR1214-00-01 09:14:0013.3[facility]annCHEM PANEL 2019-01-25 09:14:0024[facility]annCHEM XKDCQ2230-18-36 09:14:92729Enqxcdid HermannCHEM SEYPT4943-58-88 09:14:0081[facility]annCHEM NTXDB9826-14-31 09:14:002[facility]annCHEM HVFND8605-04-34 09:14:003.3[facility]annCHEM XMDLM2462-40-25 09:14:000.60[facility]annCHEM UNBLI8192-34-33 09:14:79991 [facility]annMOLECULAR TDOEEXAPEI1826-24-13 16:22:00Negative (01/23/19 11:22 AM)[facility]annMOLECULAR ALILMZCQKR5325-71-18 16:22:00Negative (01/23/19 11:22 AM)[facility]annCHEM ZNEUG5566-06-16 15:42:002.76[facility]annCHEM PANEL 2019-01-23 15:42:002.76[facility]annCHEM SOQUR0975-20-26 12:32:000.9[facility]annCHEM XFCIJ8933-50-41 12:32:000.9[facility]annCHEM NMWCW7719-42-59 10:50:002.0[facility]annCHEM HAXLS5816-84-15 10:50:09141Fsmgsbnf HermannCHEM NNTJS0653-29-15 10:50:0023[facility]annCHEM RQXRG8743-52-16 10:50:17759 [facility]annCHE[facility] CAEIU5167-35-55 10:50:003.1[facility]annCHEM PANEL 2019-01-23 10:50:09259Rrfxinzg HermannCHEM IJVDR2791-82-80 10:50:005[facility]annCHEM BEEES2257-41-60 10:50:000.50[facility]annCHEM CLVTA3112-29-41 10:50:007.8[facility]annCHEM XTGFC1423-40-08 10:50:0083[facility]annCHEM FXVBL5877-40-07 10:50:0010.1[facility] VaqkhziTHAAYQTQTI8226-64-76 10:50:000.2 [facility] QolzvjmEUVPKGTOQQ8838-49-30 10:50:000.8[facility]annHEMATOLOGY 2019-01-23 10:50:005.5[facility] TjoqjfpHURRMMSAIB2941-84-06 10:50:002.2[facility] QsvaruxETLYLUKSVL3327-42-62 10:50:000.1[facility] UpouojoZSPBQSKOQI6146-06-57 10:50:0063.6[facility] WkbymrkYQZTVBZILC3224-49-48 10:50:008.9[facility] VZAAZQWSQO6329-50-92 10:50:002.3[facility] PadihuzWKIYUMDAUA7544-95-54 10:50:00 Normal (01/23/19 5:50 AM)[facility] LrhvlllADRJRNXTWJ2097-37-80 10:50:00Normal (01/23/19 5:50 AM)[facility] ArzcwatLSZVBPKGHJ8903-47-08 10:50:0025.1[facility] FkzbwemYTIRIKXUNS0011-08-26 10:50:0013.1[facility] TimfmuwWHDEGQPFIN7813-85-70 10:50:67578Phlxgdoi DrpmrtrIDDGPRIHIS0081-96-86 10:50:007.7[facility] GVKFSZRQQH9791-03-19 10:50:008.6[facility] MnyoprkRTVJLPQEDK2039-12-70 10:50:00 10.0[facility] GpbwrjkHEAMXAXFFC9974-11-17 10:50:0034.6[facility]annHEMATOLOGY 2019-01-23 10:50:0028.7[facility] YrjwnapOLPLHUDXSY3518-83-06 10:50:0087.8[facility] ZypptygYIRRMQNVAP8071-93-86 10:50:00 Test Item Value Reference Range Interpretation Comments MCH (test code = MCH) 30.4 pg 27.0-31.0 [facility] QedzjizHRMKHWYLKT8109-67-74 10:50:003.27[facility]annHEMATOLOGY 2019-01-23 10:50:84592Zpddnahc ZphztxyQDMOAIJUZT3837-58-63 10:50:007.7[facility] HlxzenqSIZEGJMEOF6855-30-03 10:50:008.6[facility] FaupvsjJSXEPRCUHO4873-59-96 10:50:0010.0[facility] UuatfimFJNMDQMUML4119-12-97 10:50:0034.6[facility] GNHQIMRUVB9086-31-70 10:50:0028.7[facility] JwbycefWGTAZPFTEX6180-37-19 10:50:00 87.8[facility] NnkvyzlJQUVLBDLTT3847-29-16 10:50:00 Test Item Value Reference Range Interpretation Comments MCH (test code = MCH) 30.4 pg 27.0-31.0 [facility] OpfitdyVWNUGOTQKJ0525-93-67 10:50:003.27[facility]annCHEM PANEL 2019-01-23 10:50:002.0[facility]annCHEM RYEZU3831-60-12 10:50:71155Xwmgtfot HermannCHEM DDWGU2558-99-19 10:50:0023[facility]annCHEM HTOQP7144-44-43 10:50:82800Snuimxnk HermannCHEM CKLLN2532-22-42 10:50:003.1[facility]annCHEM HBZYH3211-17-35 10:50:88409Mislwuln HermannCHEM POKXO4465-92-47 10:50:005 [facility]annCHE[facility] RUCSG8877-38-95 10:50:000.50[facility]annCHEM PANEL 2019-01-23 10:50:007.8[facility]annCHEM PKTNC5712-58-17 10:50:0083[facility]annCHEM YLLDB8071-39-88 10:50:0010.1[facility] YoezfbyHIWEASWMHI8158-07-73 10:50:000.2[facility] YbsttttENELRWYWFK1204-57-33 10:50:000.8[facility] NPCIMTNFRU7566-94-85 10:50:005.5[facility] JthrdfiDLMFAGWVPU9074-75-48 10:50:002.2 [facility] YzxpjxnXFVHVWVGCK0896-88-06 10:50:000.1[facility]annHEMATOLOGY 2019-01-23 10:50:0063.6[facility] CkdmnjjPNMYUXSNAX6618-76-29 10:50:008.9[facility] UwgyhluRWGJZIHJLI9453-24-25 10:50:002.3[facility] NkgrobbYTWEEPNJKH8382-20-98 10:50:00Normal (01/23/19 5:50 AM)[facility] IgxzbpoFPEALHFKUB2042-40-23 10:50:00 Normal (01/23/19 5:50 AM)[facility] AdibjnwVQYDMHYOPD0700-15-89 10:50:0025.1[facility] NgycaptTAPLQMFOTW3169-89-30 10:50:0013.1[facility]annCHEM TSQEF4644-38-74 11:32:002.4[facility]annCHEM GGRKC3752-95-08 11:32:002.4[facility]annCHEM LKAXX0437-68-59 09:04:003.0[facility]annCHEM UZCNW2826-83-04 09:04:003.0 [facility] SWIBB0980-57-13 07:14:00 Test Item Value Reference Range Interpretation Comments UA Spec Grav (test code = UA Spec 1.014 1 Grav) [facility] ZCBGF7438-54-09 07:14:00 Test Item Value Reference Range Interpretation Comments UA pH (test code = UA pH) 6.0 1 5.0-8.0 [facility] OMDBA7060-54-47 07:14:00Negative (01/22/19 2:14 AM) [facility] VJAEZ7925-33-89 07:14:00Negative *NA*(01/22/19 2:14 AM) [facility] KXXXN0412-43-60 07:14:00Negative *NA*(01/22/19 2:14 AM) [facility] UUIBA2559-68-82 07:14:00Negative *NA*(01/22/19 2:14 AM) [facility] HPYHL0490-23-39 07:14:00Negative (01/22/19 2:14 AM) [facility] KEBGP2123-88-87 07:14:00Negative (01/22/19 2:14 AM) [facility] VXIXK7061-90-79 07:14:00Negative (01/22/19 2:14 AM) [facility] KOZFS7040-63-63 07:14:00<1[facility] HSZAL4882-52-98 07:14:0025[facility] WEURP2970-85-16 07:14:002 [facility] JBVFP7012-66-78 07:14:00Light Yellow *NA*(01/22/19 2:14 AM)[facility] YRRNC3632-35-52 07:14:00Clear (01/22/19 2:14 AM) [facility] BIOZA5204-07-42 07:14:00 Test Item Value Reference Range Interpretation Comments UA Spec Grav (test code = UA Spec 1.014 1 Grav) [facility] MDXYA4039-17-14 07:14:00 Test Item Value Reference Range Interpretation Comments UA pH (test code = UA pH) 6.0 1 5.0-8.0 [facility] ETWRV2139-96-00 07:14:00Negative (01/22/19 2:14 AM) [facility] ZWMMC5447-17-91 07:14:00Negative *NA*(01/22/19 2:14 AM) [facility] SJALJ3983-76-49 07:14:00Negative *NA*(01/22/19 2:14 AM) [facility] FBLAX4965-15-41 07:14:00Negative *NA*(01/22/19 2:14 AM) [facility] DETCQ2286-66-22 07:14:00Negative (01/22/19 2:14 AM) [facility] QFMMU7341-74-21 07:14:00Negative (01/22/19 2:14 AM) [facility] YEPHV2310-24-90 07:14:00Negative (01/22/19 2:14 AM) [facility] BZYDT7436-71-03 07:14:00<1[facility] SFUZH5302-24-35 07:14:0025[facility] EWDRL6867-47-45 07:14:002 [facility] MDGVJ3706-45-76 07:14:00Light Yellow *NA*(01/22/19 2:14 AM)[facility] TMJPK6658-88-28 07:14:00Clear (01/22/19 2:14 AM) [facility] FvbltnyJPQVI0517-51-91 05:16:000.90[facility] BwsizbkRPOWC6448-09-05 05:16:000.90[facility] OsmpxbtOSVYFMMOBI0076-67-87 05:01:000.7[facility] WRTOTRFGDP3411-57-02 05:01:000.0[facility] XaplpyiRFFXZYFDMJ1998-95-63 05:01:000.0 [facility] LtaapbwEZVHNNWUHT9657-34-26 05:01:000.9[facility]annHEMATOLOGY 2019-01-22 05:01:008.6[facility] NidgalhOADVSHUDYP7544-55-89 05:01:000.6[facility] VwtbwyaXMJRKHUTJK0003-66-65 05:01:0086.5[facility] WkboxbqENSJJLYLFN3344-49-53 05:01:005.7[facility] SvluatjFFADWLQFPJ5799-27-19 05:01:006.9[facility] PZSKSIHVMH9403-69-30 05:01:009.9[facility] XqicxdkLNUUUNTBWZ6176-07-39 05:01:00 32.8[facility] CwfpkuxNFWNKYKVXH3306-98-87 05:01:0013.6[facility]annHEMATOLOGY 2019-01-22 05:01:40242Mijcqdps UggxdjwCAWNGCNFPJ3060-91-42 05:01:007.3[facility] LggsibqSEUGPACOAO6975-06-70 05:01:0014.0[facility] HdldmtuZKRNIHCZMR5545-38-32 05:01:004.85[facility] VxmizzgBIAFAVNFUH2819-81-30 05:01:0042.7[facility] [place] FEELAYHTTD7450-37-19 05:01:00 Test Item Value Reference Range Interpretation Comments MCH (test code = MCH) 29.0 pg 27.0-31.0 [facility] WfjjuvgZVTMTYNXED0976-36-63 05:01:0088.2[facility]annHEMATOLOGY 2019-01-22 05:01:00 Test Item Value Reference Range Interpretation Comments INR (test code = INR) 0.96 1 0.85-1.17 [facility] YmsbinxOVOSUJBEBU9020-73-20 05:01:00 Test Item Value Reference Range Interpretation Comments PT (test code = PT) 12.6 s 12.0-14.7 [facility] MehkndtUOXYZTWXGW4607-45-56 05:01:00 Test Item Value Reference Range Interpretation Comments PTT (test code = PTT) 25.9 s 22.9-35.8 [facility] DTGJKFE0781-15-75 05:01:00Negative (01/22/19 12:01 AM) [facility]annCARDIAC MUNRQNE7417-72-98 05:01:00<0.02[facility] CARDIAC MZWEQOK3547-67-14 05:01:0049[facility]annCHEM DVUPK4827-06-40 05:01:000.6[facility]annCHEM GCKRI7592-49-34 05:01:86613Gwqcqtkt HermannCHEM RPLKI0474-70-48 05:01:004.0[facility]annCHEM YAJOK5419-85-41 05:01:0017 [facility]annCHE[facility] ZYSUW1134-64-85 05:01:0025[facility]annCHEM PANEL 2019-01-22 05:01:008.1[facility]annCHEM OYFVT4785-40-85 05:01:00 Test Item Value Reference Range Interpretation Comments B/C Ratio (test code = B/C Ratio) 20 1 6-25 [facility]annCHE[facility] UOEWI7024-65-56 05:01:00 Test Item Value Reference Range Interpretation Comments A/G Ratio (test code = A/G Ratio) 1.0 1 0.7-1.6 [facility]CHE[facility] POTKZ1929-67-69 05:01:004.1[facility]annCHEM PANEL 2019-01-22 05:01:006.90[facility] KszhqrwENCQAZAVPJKKN8570-09-14 05:01:00Negative *NA*(01/22/19 12:01 AM)[facility] DdcufgkXMCDGGAYXE2480-91-80 05:01:000.1[facility] GiewtrpYXYLVRIOND0177-45-96 05:01:000.7[facility] UzpvymePORJIRESEI1764-11-15 05:01:000.0[facility] WsbtharTYDNYGYFLR9853-43-33 05:01:000.0[facility] HWFGWKLRDK5546-78-68 05:01:000.9[facility] ZiftvjlYDPJOXGLRF0085-36-86 05:01:008.6 [facility] DijavmwOYETRRELFR4588-17-94 05:01:000.6[facility]annHEMATOLOGY 2019-01-22 05:01:0086.5[facility] ZbyvoyyQRXRWNWQFS5857-38-55 05:01:005.7[facility] SpinmzxFWTSSNVDLK1777-77-66 05:01:006.9[facility] YfjkqdvVOPVGRBRSV2842-09-28 05:01:009.9[facility] RwajsxgBNNHDRJEVV0242-91-56 05:01:0032.8[facility] SEMTDPCCDN2634-04-89 05:01:0013.6[facility] OffrmzwHIKGUIPKXV4665-97-27 05:01:00 443[facility] UzraqljKEJJLLNZJU9581-20-43 05:01:007.3[facility]annHEMATOLOGY 2019-01-22 05:01:0014.0[facility] KttutpcIOBGPPEOQK6408-75-30 05:01:004.85[facility] HrqsmqzWTKLRHPGOT3506-21-36 05:01:0042.7[facility] AdzogfiNAOAHYEQTO3221-80-94 05:01:00 Test Item Value Reference Range Interpretation Comments MCH (test code = MCH) 29.0 pg 27.0-31.0 [facility] JcpokrqHWONMQGVLX5495-39-16 05:01:0088.2[facility]annHEMATOLOGY 2019-01-22 05:01:00 Test Item Value Reference Range Interpretation Comments INR (test code = INR) 0.96 1 0.85-1.17 [facility]kqiuyqNEXGXKLIBE5779-22-72 05:01:00 Test Item Value Reference Range Interpretation Comments PT (test code = PT) 12.6 s 12.0-14.7 [facility] CentralWiahlyjJWYRJMQWOV9968-60-30 05:01:00 Test Item Value Reference Range Interpretation Comments PTT (test code = PTT) 25.9 s 22.9-35.8 [facility] NGQSEHO8252-37-70 05:01:00Negative (01/22/19 12:01 AM) [facility] NLAGPZJ6011-63-89 05:01:00[facility]0.02[facility] BQWPNRA0821-81-84 05:01:0049[facility]annCHEM RRAFV9387-78-72 05:01:000.6[facility]annCHEM JIVBL7245-10-39 05:01:94203Dbodyzwz HermannCHEM YFJTV0040-52-49 05:01:004.0[facility] HermannCHEM EOOFX7591-48-81 05:01:0017 [facility]annCHE[facility] RNZTO7200-86-52 05:01:0025[facility]annCHEM PANEL 2019-01-22 05:01:008.1[facility] HermannCHEM CEKEE3435-58-99 05:01:00 Test Item Value Reference Range Interpretation Comments B/C Ratio (test code = B/C Ratio) 20 1 6-25 [facility] HermannCHEM FUANW1932-52-81 05:01:00 Test Item Value Reference Range Interpretation Comments A/G Ratio (test code = A/G Ratio) 1.0 1 0.7-1.6 [facility] PUCAV8899-32-15 05:01:004.1[facility]annCHEM PANEL 2019-01-22 05:01:006.90Memoridc EcdmlmyHCDLWZHPWHZUX8866-19-57 05:01:00Negative *NA*(01/22/19 12:01 AM)[facility] OitdnsrUTUSLNPAVA1014-77-15 05:01:000.1[facility] CenterFnyyrncJAA3E1945-00-52 14:36:00 Test Item Value Reference Range Interpretation [...] 0.00-0.01 N code = ETOHU) Comprehensive Metabolic Zfkwc6761-72-35 14:36:00 Test Item Value Reference Range Interpretation [...] the National Kid[employer] Foundation,http ://nkd ep.nih.gov Urinalysis Egfxzepp6769-39-29 14:32:00 Test Item Value Reference Range Interpretation Comments Color (test code = COLOR) Yellow Yellow,Straw,Pl N yellow Clarity (test code = Clear Clear N CLAR) Specific [place] (test 1.024 1.001-1.035 N code = SPGR) [...] code = Few /HPF BACT) CBC with Rszpixabnnso3259-88-43 14:21:00 Test Item Value Reference Range Interpretation [...] code = ALYMPH) 3.0 K/cumm 0.5-4.6 N [place] Abs (test code = AMONO) 0.5 K/cumm 0.0-1.2 N Eos Abs (test code = AEOS) 0.19 K/cumm 0.00-0.74 N [place] Abs (test code = ABASO) 0.1 K/cumm 0.00-0.21 N
[2021-09-26] MEDS ORDERED: LORAZEPAM 1 MG TABLET ONE (15:44)
--- NOTE | 2021-09-26 16:23 | ER ---
Nurse's Notes [facility] Name: Tiffany Quinn Age: 51 yrs Sex: Female : 1970 Arrival Date: 09/26/2021 Time: 13:56 Bed DIS3 Private MD: Diagnosis: Dyspnea, unspecified Presentation: 09/26 14:15 Chief complaint: Patient states: SOB for 1.5 months. No known fever. Feels congestion ll1 and difficultly breathing to nasal area. Coronavirus screen: Vaccine status: Patient reports receiving the 2nd dose of the covid vaccine. Client denies travel out of the [place] in the last 14 days. congestion, cough unrelated to allergies, difficulty breathing, headache, nausea, loss of taste or smell, vomiting. Client presents with at least one sign or symptom that may indicate coronavirus-19. Standard/surgical mask placed on the client. Ebola Screen: Patient denies travel to an Ebola-affected area in the 21 days before illness onset. Initial Sepsis Screen: Does the patient meet any 2 criteria? HR > 90 bpm. No. Patient's initial sepsis screen is negative. Does the patient have a suspected source of infection? Yes: Productive cough/pneumonia. Risk Assessment: Do you want to hurt yourself or someone else? Patient reports no desire to harm self or others. Onset of symptoms was August 13, 2021. 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 - Social history:: Smoking status: Patient denies any tobacco usage or history of. Screenin:00 Abuse screen: Denies threats or abuse. Nutritional screening: No deficits noted. tw2 Tuberculosis screening: No symptoms or risk factors identified. Fall Risk None identified. Assessment: 16:17 Reassessment: Patient appears in no apparent distress at this time. Patient and/or iw family updated on plan of care and expected duration. Pain level reassessed. Patient is alert, oriented x 3, equal unlabored respirations, skin warm/dry/pink. pt sleeping. Vital Signs: 14:15 BP 122 / 95; Pulse 113; Resp 17; Temp 98.1; Pulse Ox 98% ; Weight 71.67 kg; Height 5 ll1 ft. 3 in. (160.02 cm); Pain 3/10; 14:15 Body Mass Index 27.99 (71.67 kg, 160.02 cm) ll1 ED Course: 13:56 Patient arrived in ED. kc5 14:17 Triage completed. ll1 14:17 Arm band placed on. ll1 14:56 Patient placed in an exam room, on a stretcher. iw 14:56 Bed in low position. Call light in reach. Pulse ox on. NIBP on. tw2 15:01 Bernard Rodriguez PA is PHCP. [facility] 15:02 Manuel Ward MD is Attending Physician. raymundo 15:02 Chante Warner, RN is Primary Nurse. iw Administered Medications: 15:50 Drug: Ativan (LORazepam) 1 mg Route: PO; iw 16:00 Follow up: Response: No adverse reaction iw Outcome: 16:23 Discharge ordered by . [facility] 16:45 Patient left the ED. iw Signatures: Bernard Rodriguez PA PA jmm Williams, Irene, JIGNA RN iw Angelita Jain RN RN tw2 Lorrie Ham RN RN ll1 Yaritza May kc5
--- NOTE | 2021-09-26 16:24 | EDPHYS ---
Physician Documentation [facility] Name: Tiffany Quinn Age: 51 yrs Sex: Female : 1970 Arrival Date: 09/26/2021 Time: 13:56 Bed DIS3 Private MD: ED Physician Manuel Ward HPI: 09/26 16:15 This 51 yrs old Female presents to ER via Ambulatory with complaints of Breathing jmm Difficulty. 16:15 The patient has shortness of breath at rest. Onset: The symptoms/episode began/occurred jmm today. Duration: The symptoms are continuous, and are steadily getting worse. The patient's shortness of breath is aggravated by nothing, is alleviated by nothing. Associated signs and symptoms: Pertinent negatives: chest pain, non-productive cough, productive cough, diaphoresis, fever. This is a 51-year-old male with a history of ADD HD, anxiety, bipolar the presents emerged department with complaints of anxiety and shortness of breath. Patient is concerned that her throat may be swelling.. [employer]: 15:02 [facility] N/A - tw2 Historical: - Allergies: 14:17 Pepcid; ll1 14:17 Toradol; ll1 - PMHx: 14:17 ADD; Anxiety; Bipolar disorder; ll1 - PSHx: 14:17 Cholecystectomy; hernia repair; ll1 - Immunization history:: Client reports receiving the 2nd dose of the Covid vaccine. - Social history:: Smoking status: Patient denies any tobacco usage or history of. ROS: 16:15 Constitutional: Negative for fever, chills, and weight loss, Cardiovascular: Negative jmm for chest pain, palpitations, and edema, Respiratory: Negative for shortness of breath, cough, wheezing, and pleuritic chest pain. 16:15 Psych: Positive for anxiety. 16:15 All other systems are negative. Exam: 16:15 Constitutional: This is a well developed, well nourished patient who is awake, alert, jmm and in no acute distress. Head/Face: atraumatic. Eyes: EOMI, no conjunctival erythema appreciated ENT: Moist Mucus Membranes Neck: Trachea midline, Supple Chest/axilla: Normal chest wall appearance and motion. 16:15 Respiratory: Normal respirations, no respiratory distress appreciated Abdomen/GI: Non distended, soft Back: Normal ROM Skin: General appearance color normal MS/ Extremity: Moves all extremities, no obvious deformities appreciated, no edema noted to the lower extremities Neuro: Awake and alert, normal gait Psych: Behavior is normal, Mood is normal, Patient is cooperative and pleasant 16:15 ENT: Posterior pharynx: is normal, Airway: normal, Tonsils: are normal in appearance. Vital Signs: 14:15 BP 122 / 95; Pulse 113; Resp 17; Temp 98.1; Pulse Ox 98% ; Weight 71.67 kg; Height 5 ll1 ft. 3 in. (160.02 cm); Pain 3/10; 14:15 Body Mass Index 27.99 (71.67 kg, 160.02 cm) ll1 MDM: 15:08 Patient medically screened. [facility] 16:15 Data reviewed: vital signs, nurses notes. Counseling: I had a detailed discussion with jm the patient and/or guardian regarding: the historical points, exam findings, and any diagnostic results supporting the discharge/admit diagnosis, the need for outpatient follow up, to return to the emergency department if symptoms worsen or persist or if there are any questions or concerns that arise at home. Administered Medications: 15:50 Drug: Ativan (LORazepam) 1 mg Route: PO; iw 16:00 Follow up: Response: No adverse reaction iw Disposition: 09/27 07:05 Co-signature as Attending Physician, Manuel Ward MD. rn Disposition Summary: 09/26/21 16:23 Discharge Ordered Location: Home [facility] Condition: Stable jmm Diagnosis - Dyspnea, unspecified jmm Followup: [facility] - With: Private Physician - When: 2 - 3 days - Reason: Recheck today's complaints, Continuance of care, Re-evaluation by your physician Discharge Instructions: - Discharge Summary Sheet [facility] Forms: - Medication Reconciliation Form [facility] - Thank You Letter [facility] - Antibiotic Education m - Prescription Opioid Use [facility] Signatures: Bernard Rodriguez PA PA jmm Williams, Irene, Manuel Guaman RN, MD MD rn Lewis, Lynsay RN RN ll1
[2021-09-26 16:55] VITALS: BP 122/95; TEMP 98.1; O2SAT 98
== END 2021-09-26 16:45 | disposition home or self-care (01) ==
LOC: ER 13:55
DX: R06.00 Dyspnea, unspecified (principal)
CPT/HCPCS: 99283

== ENCOUNTER 2021-09-29 18:11 | Emergency (ER) | payer OTHER ==
--- OUTSIDE RECORDS SUMMARY | 2021-09-29 18:17 | XMS REPORT | Continuity of Care Document ---
:[address] [facility] t Address [address] [place] [address] Care Team Providers Name Role Phone UNKNOWN Primary Care Physician Unavailable Sanchez SNOW Attending Clinician SANCHEZ Attending Clinician Unavailable Julia HOFFMANN S Attending Clinician Doctor Unassigned, Name Attending Clinician Unavailable Singer ESCALANTE Attending Clinician Attending Clinician Unavailable Humaira-Mbayo_A_AH Attending Clinician Unavailable Chente Attending Clinician Unavailable Chente Attending Clinician Unavailable AFUWAPE Attending Clinician Unavailable BRADFORD Admitting Clinician Unavailable Humaira-Mbayo_A_AH Admitting Clinician Unavailable Chente Admitting Clinician Unavailable ALEXYSUWAPE Admitting Clinician Unavailable Payers Payer Name Policy Type Policy Number Effective Date Expiration Date S [facility] OF [place] - [id number] 2020 [employer] 00:00:00 (MEDICARE REPLACEMENT/ADVANT AGE - [...] 00 GASTROENTE RITIS AND COLITIS Active 01/21/2019 [facility] Irregular Irregular Disease Active Uni vers menstrual menstrual 8-15 ity of cycle cycle 00:00: [address] Skin Skin Disease Active Univers lesion lesion 8-15 ity of 00:00: [address] Psychiatri Psychiatri Disease Active U nivers c disorder c disorder 8-15 it y of 00:00: [address] Well woman Well woman Disease Active U nivers exam with exam with 8-15 ity of routine routine 00:00: [place] gynecologi gynecologi 00 Me dical nicky exam nicky exam Branch INFECTIOUS Diagnosis Active 2019-02-06 Memoria GASTROENTE 08:58:00 l RITIS AND Yonis COLITIS, INFECTIOUS GASTROENTE RITIS AND COLITIS, Active [facility] Allergies, Adverse Reactions, Alerts Allergy Allergy Status Severity Reaction(s) Onset Inactive Treating Comm ents Source Name Type Date Date Clinician NO KNOWN Drug Active Univers ALLERGIE Class ity of S [facility] Phenerga Phenerga Active [place] winifred [place] Social History Social Habit Start Date Stop Date Quantity Comments Source History of Cigarette Smoker Universi ty of tobacco use [facility] Tobacco Comment 2-3 cigs a day [facility] Exposure to Not sure [place] of SARS-CoV-2 [facility] (event) [place] Tobacco use and 2016-06-08 2016-06-08 [facility] 00:00:00 00:00:00 [facility] Alcohol intake 2016-06-08 2016-06-08 0 /d University of 00:00:00 00:00:00 [facility] Sex Assigned At [birth year] Universit y of 00:00:00 00:00:00 [facility] Smoking Status Start Date Stop Date Source Social History 2019-01-22 05:00:12 [facility] Her urena Current some day smoker 2016-06-08 00:00:00 [facility] Medications Ordered Filled Start Stop Current Ordering Indication Dosage Frequency Signature Comments Components Source Medication Medication Date Date Medication? Clinician (SIG) Name Name cefTRIAXone 2020-10- No 1000mg 1,000 mg, Univers (ROCEPHIN) 17 11-17 IV ity of 1,000 mg in 08:30: 08:01 [place], [place] NaCl 0.9% 00 :00 ONCE, 1 [...] 09/09/21 at 2330, RANDA amoxicillin 2020-10 Yes [id number] 500mg Take 1 Univers 500 mg 11-10 capsule by ity of capsule 00:00: mouth 3 [place] 00 (three) Medical times Branch daily. ondansetron 2019-10- No 4mg 4 mg, [facility] ers (ZOFRAN-ODT 12-01 Oral, ity of ) 15:15: 14:16 ONCE, 1 [place] disintegrat 00 :00 dose, Mon Med ical ing tablet 09/30/20 at [facility] 4 mg 0915, Routine ondansetron 2019-10- No 4mg 4 mg, [facility] ers (ZOFRAN-ODT 12-01- Oral, ity of ) 14:30: 13:32 ONCE, 1 [place] disintegrat 00 :00 dose, Mon Med ical ing tablet 09/30/20 at [facility] nc 4 mg 0830, Routine ondansetron 2019-10 Yes [id number] 4mg Take 1 Univers 4 mg 2-07 tablet by ity of disintegrat 00:00: mouth [place] ing tablet 00 every 8 Medica l (eight) Branch hours as needed for Nausea and Vomiting (N/V). ondansetron 2019-10 Yes [id number] 4mg Take 1 Univers 4 mg 2-07 tablet by ity of disintegrat 00:00: mouth [place] ing tablet 00 every 8 Medica l (eight) Branch hours as needed for Nausea and Vomiting (N/V). ondansetron 2019-10 Yes [id number] 4mg Take 1 Univers 4 mg 2-07 tablet by ity of disintegrat 00:00: mouth [place] ing tablet 00 every 8 Medica l (eight) Branch hours as needed for Nausea and Vomiting (N/V). ondansetron 2019-10 Yes [id number] 4mg Take 1 Univers 4 mg 2-07 tablet by ity of disintegrat 00:00: mouth [place] ing tablet 00 every 8 Medica l (eight) Branch hours as needed for Nausea and Vomiting (N/V). ciprofloxac 2019 Yes 500 mg = 1 Memoria in 500 mg 4-04 tab, PO, l oral tablet 17:35: [id number], X Ermine 00 4 day, # 8 tab, 0 [...] 4-04 tab, PO, l oral tablet 17:35: [id number], X Ermine 00 4 day, # 8 tab, 0 Refill(s) Ondansetron 2018- Yes 4 mg = 1 Me moria 4 MG Oral 4-04 tab, PO, l Tablet 17:35: Q6H, PRN Ermine [Zofran] 00 Nausea/Vom iting, # 20 tab, [...] s with feeding tube less than 14 Marshallese (Dobhoff, J-tube etc) and pediatric and patients. [...] s with feeding tube less than 14 [place] (Dobhoff, J-tube etc) and pediatric and patients. Strattera No 0.5 mg/kg, Me moria 01-24 Route: PO, l 14:00: QAM, Ermine Dosing Weight 75, kg, Start date: 01/24/19 [...] ia 4- (Same As: l 18:00: KlonoPIN) Ermine Flagyl No Notes: Memoria 4- (Same as: l 15:00: Flagyl) Yonis 00 Take with food/ avoid alcohol Cipro No Notes: May Memori a - interfere l 15:00: w/enteral Yonis 00 feedings - Take 1 hr before or 2 hrs after antacids, dairy pdt & minerals. On empty stomach. Flagyl No Notes: Memoria 4- (Same as: l 15:00: Flagyl) Ermine 00 Take with food/ avoid alcohol Cipro No Notes: February Memori a 4- interfere l 15:00: w/enteral Ermine 00 feedings - Take 1 hr before [...] PO, ONCE, l mEq oral 14:20: 0 Ermine tablet, 00 Refill(s) extended release Metronidazo No 500 mg, Mem oria le 500 MG 4-01 PO, l Oral Tablet 14:20: [id number], 0 H ermann [Flagyl] 00 Refill(s) Ciprofloxac No 500 mg, Mem oria in 500 MG 01 PO, l Oral Tablet 14:20: [id number], 0 Ermine [Cipro] 00 Refill(s) potassium Yes 40 mEq, Memor ia chloride 20 -01 PO, ONCE, l mEq oral 14:20: 0 Ermine tablet, 00 Refill(s) extended release Metronidazo No 500 mg, Mem oria le 500 MG 4-01 PO, l Oral Tablet 14:20: [id number], 0 H ermann [Flagyl] 00 Refill(s) Ciprofloxac No 500 mg, Mem oria in 500 MG 4-01 PO, l Oral Tablet 14:20: [id number], 0 Ermine [Cipro] 00 Refill(s) Potassium No Notes: Memori [...] s with feeding tube less than 14 [place]ese (Dobhoff, J-tube etc) and pediatric and patients. [...] s with feeding tube less than 14 [place]ese (Dobhoff, J-tube etc) and pediatric and patients. [...] tab, PO, l Tablet 21:08: BID, 0 Ermine [Risperdal] 00 Refill(s) Strattera Yes 0.5 mg/kg, [...] tab, PO, l Tablet 21:08: BID, 0 Ermine [Risperdal] 00 Refill(s) Zosyn No Notes: Memoria [...] oria 3-31 to exceed l 15:03: 400mg/day. Ermine 00 (Same As: Ultram) Tramadol No Notes: [...] 01-22 Route: IM, l 09:47: Drug form: Ermine 00 PDR/INJ, PRN, Dosing Weight 75.994, kg, [...] Memoria 3-31 (Same as: l 08:56: Zofran) Ermine MEDICATION WASTE Product Size: 4 mg Product [...] moria IV - 1,000 l 05:44: ml/hr, Ermine 00 Infuse Over: 1 hr, Route: IV, [...] 0.9% 3-31 Same as: l 04:52: BD Ermine Posiflush Sterile NS (Bolus) No 1,000 mL, Me moria IV 3-31 1,000 l 04:51: ml/hr, Yonis 00 Infuse Over: 1 hr, Route: IV, 1,000, Drug form: INJ, ONCE, Priority: STAT, Dosing Weight 75.994 kg, Start date: 01/21/19 23:51:00 CDT, Stop date: 01/21/19 23:51:00 CDT NS (Bolus) No 1,000 mL, Me moria IV 01-22 1,000 l 04:51: ml/hr, Ermine 00 Infuse Over: 1 hr, Route: IV, [...] HYDROBROMID 8-15 mouth. ity of E 19:02: [place] (CITALOPRAM 27 Medical ORAL) Branch ibuprofen 2016-0 Yes 200mg Take 200 Uni vers (ADVIL) 200 8-15 mg by ity of mg tablet 14:02: mouth [place] [id number] every 6 Medical (six) Branch hours as needed. CLONAZEPAM 2016-0 Yes Take by Uni vers (KLONOPIN 8-15 mouth. ity of ORAL) 14:02: [address] Branch CITALOPRAM 2016-0 Yes Take by Uni vers HYDROBROMID 8-15 mouth. ity of E 14:02: [place] (CITALOPRAM 27 Medical ORAL) Branch ibuprofen 2016-0 Yes 200mg Take 200 Uni vers (ADVIL) 200 8-15 mg by ity of mg tablet 14:02: mouth [place] [address] every 6 Medical (six) Branch hours as needed. CLONAZEPAM 2016-0 Yes Take by Uni vers (KLONOPIN 8-15 mouth. ity of ORAL) 14:02: [address] Branch CITALOPRAM 2016-0 Yes Take by Uni vers HYDROBROMID 8-15 mouth. ity of E 14:02: [place] (CITALOPRAM 27 Medical ORAL) Branch ibuprofen 2016-0 Yes 200mg Take 200 Uni vers (ADVIL) 200 8-15 mg by ity of mg tablet 14:02: mouth [place] [address] every 6 Medical (six) Branch hours as needed. CLONAZEPAM 2016-0 Yes Take by Uni vers (KLONOPIN 8-15 mouth. ity of ORAL) 14:02: [place] [address] Medical Branch CITALOPRAM 2016-0 Yes Take by Uni vers HYDROBROMID 8-15 mouth. ity of E 14:02: [place] (CITALOPRAM 27 Medical ORAL) Branch misoprostol 2016-0 [...] H it y of en-caff 00:00: PRN. [place] (ESGIC) 00 Medical 50-325-40 Branch mg tablet butalbital- 2015-0 Yes TK 1 TO 2 U nivers acetaminoph 8-01 T PO Q 8 H it y of en-caff 00:00: PRN. [place] (ESGIC) 00 Medical 50-325-40 Branch mg tablet butalbital- 2015-0 Yes TK 1 TO 2 U nivers acetaminoph 8-01 T PO Q 8 H it y of en-caff 00:00: PRN. [place] (ESGIC) 00 Medical 50-325-40 Branch mg tablet butalbital- 2016-0 Yes TK 1 TO 2 U nivers acetaminoph 8-01 T PO Q 8 H it y of en-caff 00:00: PRN. [place] (ESGIC) 00 Medical 50-325-40 Branch mg tablet dextroamphe 0 Yes TK 1 T PO U nivers tamine-amph 7-20 BID. ity of etamine 00:00: [place] (ADDERALL) 00 Medical 20 mg Branch tablet dextroamphe Yes TK 1 T PO U nivers tamine-amph 7-20 BID. ity of etamine 00:00: [place] (ADDERALL) 00 Medical 20 mg Branch tablet dextroamphe Yes TK 1 T PO U nivers tamine-amph 7-20 BID. ity of etamine 00:00: [place] (ADDERALL) 00 Medical 20 mg Branch tablet [...] 2021-09-10 08:01:00 138 mm[Hg] Univer sity of [facility] Diastolic blood 2021-09-10 08:01:00 97 mm[Hg] Unive rsity of [facility] Heart rate 2021-09-10 08:01:00 87 /min [facility] Respiratory rate 2021-09-10 08:01:00 20 /min [facility] [place] [facility] Oxygen saturation in 2021-09-10 08:01:00 98 /min University of Arterial blood by [place] [employer] [facility] Pulse oximetry Branch Body temperature 2021-09-10 04:28:51 37.17 Ruthann [facility] [place] [facility] Body height 2021-09-10 04:26:00 154.9 cm [facility] Body weight 2021-09-10 04:26:00 81.647 kg [facility] BMI 2021-09-10 04:26:00 34.01 kg/m2 [facility] Systolic blood 2021-09-09 20:06:00 150 mm[Hg] Univer sity of [facility] Diastolic blood 2021-09-09 20:06:00 89 mm[Hg] Unive rsity of [facility] Heart rate 2021-09-09 20:06:00 108 /min [facility] Body temperature 2021-09-09 20:06:00 37.22 Ruthann [facility] [place] [facility] Respiratory rate 2021-09-09 20:06:00 18 /min [facility] [place] [facility] Oxygen saturation in 2021-09-09 20:06:00 99 /min University of Arterial blood by Take[employer] nicky Pulse oximetry Branch Body weight 2021-09-09 20:05:00 81.647 kg Universi ty of [place] [facility] BMI 2021-09-09 20:05:00 32.40 kg/m2 Universi ty [facility] [place] [facility] Systolic blood 2020-09-30 14:00:00 126 mm[Hg] Univer sity of pressure [place] [facility] Diastolic blood 2020-09-30 14:00:00 84 mm[Hg] Unive rsity of pressure [place] [facility] Heart rate 2020-09-30 14:00:00 79 /min Universi ty [facility] [place] [facility] Oxygen saturation in 2020-09-30 14:00:00 98 /min University of Arterial blood by [facility] nicky Pulse oximetry Branch Body temperature 2020-09-30 13:26:00 37.22 Ruthann Univ ersity of [place] [facility] Respiratory rate 2020-09-30 13:26:00 16 /min Univ ersity of [place] [facility] Body weight 2020-09-30 13:26:00 72.576 kg Universi ty [facility] [place] [facility] BMI 2020-09-30 13:26:00 28.80 kg/m2 [facility]i ty [facility] [place] [facility] Systolic blood 2020-09-30 14:00:00 126 mm[Hg] Univer sity of pressure [place] [facility] Diastolic blood 2020-09-30 14:00:00 84 mm[Hg] Unive rsity of pressure [place] [facility] Heart rate 2020-09-30 14:00:00 79 /min [facility]i ty [facility] [place] [facility] Oxygen saturation in 2020-09-30 14:00:00 98 /min University of Arterial blood by [facility] nicky Pulse oximetry Branch Body temperature 2020-09-30 13:26:00 37.22 Ruthann Univ ersity of [place] [facility] Respiratory rate 2020-09-30 13:26:00 16 /min Univ ersity of [place] [facility] Body weight 2020-09-30 13:26:00 72.576 kg [facility]i ty [facility] [place] [facility] BMI 2020-09-30 13:26:00 28.80 kg/m2 [facility]i ty [facility] [place] [facility] Temperature Oral (F) 2019-01-28 01:16:00 98.6 F Memorial Yonis Systolic (mm Hg) 2019-01-28 01:16:00 Estrada rial Ermine Diastolic (mm Hg) 2019-01-28 01:16:00 Mem orial Ermine Heart Rate 2019-01-28 01:16:00 Memorial E[facility] Respitory Rate 2019-01-28 01:16:00 Memori al Ermine Systolic (mm Hg) 2019-01-27 20:42:00 Estrada rial Yonis Diastolic (mm Hg) 2019-01-27 20:42:00 Mem orial Yonis Heart Rate 2019-01-27 20:42:00 Memorial E[facility] Respitory Rate 2019-01-27 20:42:00 Memori al Ermine Temperature Oral (F) 2019-01-27 20:42:00 98.5 F Memorial Yonis Systolic (mm Hg) 2019-01-27 17:00:00 Estrada rial Yonis Diastolic (mm Hg) 2019-01-27 17:00:00 Mem orial Yonis Temperature Oral (F) 2019-01-27 17:00:00 98.5 F Memorial Yonis Heart Rate 2019-01-27 17:00:00 [facility] [place] Respitory Rate 2019-01-27 [facility] 2019-01-22 14:35:00 157.48 cm [facility] BMI Calculated 2019-01-22 14:35:00 [facility] Weight 2019-01-22 14:35:00 [facility] Erm[facility] Weight 2019-01-22 04:34:00 [facility] Procedure Date / Time Performing Clinician Source Performed URINALYSIS 2021-09-10 06:03:00 Neena Bradford [facility] URINE DRUG (IMMUNOASSAY) 2021-09-10 06:03:00 Neena Bradford [facility] n[facility] SCREEN W/O REFLEX XR CHEST 1 VW 2021-09-10 04:57:30 Neena Brafdord [facility] CREATINE KINASE 2021-09-10 04:39:00 Neena Bradford [facility] MAGNESIUM 2021-09-10 04:39:00 Neena Bradford [facility] TROPONIN I 2021-09-10 04:39:00 Neena Bradford [facility] COMP. METABOLIC PANEL 2021-09-10 04:39:00 Neena Bradford [facility] ([id number]) Medical [place] CBC WITH DIFF 2021-09-10 04:39:00 Neena Bradford [facility] PROTHROMBIN TIME / INR 2021-09-10 04:39:00 [facility] ACTIVATED PARTIAL 2021-09-10 04:39:00 Neena Bradford [facility] THRMPLAS [facility] N-TERMINAL PRO-BNP 2021-09-10 04:39:00 Neena Bradford [facility] COVID-19 (ID NOW RAPID 2021-09-10 04:39:00 [facility] TESTING) Medical Branch TROPONIN I 2021-09-09 21:49:00 [facility] COMP. METABOLIC PANEL 2021-09-09 21:49:00 [id number] Medical Branch LITHIUM 2021-09-09 21:49:00 [facility] CBC WITH DIFF 2021-09-09 21:49:00 [facility] CONSENT/REFUSAL FOR 2021-09-09 19:51:22 Doctor Unassigned, No Un [facility] DIAGNOSIS AND TREATMENT Name [facility] Branch URINALYSIS 2020-09-30 13:27:00 [place], [facility] ADC,CLC OR LCC ONLY - 2020-09-30 13:27:00 JacksonChuy aleman [facility] INFLUENZA A & B DIRECT Medical B ranch ANTIGEN COVID-19 (ID NOW RAPID 2020-09-30 13:27:00 [place] Chuy [facility] TESTING) Medical Branch Encounters Start End Encounter Admission Attending Care Care Encounter Source Date/Time Date/Time Type Type Clinicians Facility Department ID 2019-01-22 Inpatient E [facility] MED [id number] [facility] W 04:39:00 2021-09-09 2021-09-10 Emergency DENIA Bradford [id number] Univers 22:20:00 03:02:00 Neena WALSH [id number] i ty of [place] 4.2.7.2.686 [facility] [id number] [facility] nicky 084 Branch 2021-09-09 2021-09-10 Emergency X DENIA BRADFORD ERT [id number] Univers 22:20:00 03:02:00 NEENA tubbs [facility] 2021-09-09 2021-09-10 Emergency X SANCHEZ [facility] ERT [id number] Univers 22:20:00 03:02:00 NEENA tubbs [facility] 2021-09-09 2021-09-09 Emergency [facility] [id number] Univers 14:07:00 17:35:00 Luanne WALSH 350.1.13.10 i ty of [place] 4.2.7.2.686 [facility] [id number] [address] 2021-09-09 2021-09-09 Orders Doctor BELKYS [id number] Univers 00:00:00 00:00:00 Only Unassigned, LANA 350.1.13.10 ity of [place] [facility] 4.2.7.2.686 Joe [id number] [address] 2020-09-30 2020-09-30 [facility] [id number] Univers 07:22:00 08:18:00 Chuy Walsh 350.1.13.10 i ty of [place] 4.2.7.2.686 [place] [id number] [address] 2020-09-30 2020-09-30 Emergency [facility] [id number] 07:22:00 08:18:00 Chuy Walsh 350.1.13.10 [place] 4.2.7.2.686 [place] [id number] [facility] 2020-09-30 2020-09-30 Emergency X [facility] ERT [id number] Univers 07:22:00 07:22:00 CHUY tubbs [facility] 2020-04-05 2020-04-05 Outpatient Humaira-Mbayo VFP [facility] [id number] 05:44:00 05:44:00 _A_AH [id number] Family Practic e 2020-04-05 2020-04-05 Outpatient Humaira-Mbayo VFP VFP [id number] 05:44:00 05:44:00 _A_AH 57921 Family Practic e 2020-04-05 2020-04-05 Outpatient Humaira-Alekso VFP VFP [id number] [facility] 05:44:00 05:44:00 _A_AH 61187 Family Practic e 2020-04-05 2020-04-05 Outpatient Humaira-Alekso VFP VFP [id number] [id number] [facility] 05:44:00 05:44:00 _A_AH 81647 Family Practic e 2020-03-04 2020-03-14 Inpatient 3 Ronni Eldridge [facility] PSY [id number] 15:38:00 15:25:00 Chente [facility] 2019-12-13 2019-12-13 Outpatient Humaira-Alekso VFP [facility]FP [address] 07:22:00 07:22:00 _A_ [id number] Family Practic e 2019-01-22 2019-01-28 Inpatient [facility] [id number] Memoria 04:33:00 04:40:00 martin Somers 00 l [facility] 2018-02-21 2018-02-20 [facility] [id number] [id number] 14:48:00 13:18:00 [facility] Results Test Description Test Time Test Comments Results Result Comments Source TROPONIN I 2021-09-10 05:26:53 Test Item Value Reference Range Interpretation Comme nts TROPONIN I (test code = 0.003 ng/mL See_Comment [Au tomated message] The 8119452279) system which ge nerated this result tra [...] biotin. Lab Interpretation Normal (test code = 19810-2) [id number] 05:24:16 Test Item Value Reference Range Interpretation Comments NT-proBNP (test code 35 pg/mL See_Comment [Autom ated = 3665215028) message] The system which generated this result transmitted reference range : <=125. The reference range was not used to interpret this result as normal/abnormal . PERRY (test code = PERRY) Biotin has been reported to cause a negative bias, interpret results relative to patient's use of biotin. Lab Interpretation Normal (test code = 94456-6) [facility]21-[facility]-17 05:16:51 Test Item Value Reference Range Interpretation Comments MAGNESIUM (test code = 3781521503) 1.8 mg/dL 1.7-2.4 Lab Interpretation (test code = Normal 66126-1) [facility] ([id number])2021-09-10 05:16:31 Test Item Value Reference Range Interpretation Comments NA (test code = 139 mmol/L 135-145 9800019901) K (test code = 4.0 mmol/L 3.5-5.0 7321267694) CL (test code = 108 mmol/L 98-108 8979202159) CO2 TOTAL (test code 25 mmol/L 23-31 = 9953138450) AGAP (test code = 2-16 6862450955) BUN (test code = 14 mg/dL 7-23 6081225964) GLUCOSE (test code = 88 mg/dL 70-110 8263859811) CREATININE (test code 0.89 mg/dL 0.50-1.04 = 1469055942) TOTAL BILI (test code 0.5 mg/dL 0.1-1.1 = 2300907423) CALCIUM (test code = 10.3 mg/dL 8.6-10.6 8787648332) T PROTEIN (test code 6.9 g/dL 6.3-8.2 = 2583252176) ALBUMIN (test code = 4.3 g/dL 3.5-5.0 2301319130) ALK PHOS (test code = 72 U/L 34-122 1838374623) ALTv (test code = 17 U/L 35 1742-6) AST(SGOT) (test code 29 U/L 13-40 = 2904704579) eGFR (test code = mL/min/1.73m2 8930995240) PERRY (test code = PERRY) Association of [...] urine or abnormalities in imaging tests). [facility] [id number] 05:16:16 Test Item Value Reference Range Interpretation Comments CK (test code = 6491682179) 267 U/L 33-194 H Lab Interpretation (test code = Abnormal 66733-7) [facility] THRMPLAS [id number] 05:05:32 Test Item Value Reference Range Interpretation Comments APTT Patient (test See_Comment [Automat ed code = 3173-2) message] The system which generated this result transmitted reference range : 23 - 38 Seconds . The reference range was not used to interpr et this result as normal/abnormal . PERRY (test code = PERRY) The [facility] patient population mean normal value for aPTT is 30 seconds. Lab Interpretation Normal (test code = 35554-9) [facility] [place] / [id number] 05:03:30 Test Item Value Reference Range Interpretation [...] tions. Lab Interpretation (test Normal code = 20102-6) [facility] WITH [id number] 04:57:13 Test Item Value Reference Range Interpretation Comments WBC (test code = See_Comment [Automated 4390-2) message] The sy stem which generated this result transmitted reference range : 4.30 - 11.10 10*3/?L. The reference range was not used to interpret this result as normal/abnormal . RBC (test code = See_Comment [Automated 569-8) message] The sy stem which generated this [...] RDW-SD (test code = 41.2 fL 39.0-49.9 02605-3) RDW-CV (test code = 13.0 % 12.0-15.5 788-0) PLT (test code = See_Comment H [Automated 777-3) message] The sy stem which generated this result transmitted reference range : 166 - 358 10*3/ ?L. The reference r katie was not used to interpret this result as normal/abnormal . MPV (test code = 9.6 fL 9.5-12.9 65569-5) NRBC/100 WBC (test See_Comment [Automat ed code = 3772594957) message] The system which generated this result transmitted reference range : 0.0 - 10.0 /100 WBCs. The refer ence range was not u sed to interpret th is result as normal/abnormal . NRBC x10^3 (test code <0.01 See_Comment [Auto mated = 0736724797) message] The s ystem which generated this result transmitted reference range : 10*3/?L. The reference range was not used to interpret this result as normal/abnormal . GRAN MAT (NEUT) % 61.9 % (test code = 770-8) IMM GRAN % (test code 0.30 % = 3376074196) LYMPH % (test code = 26.0 % 736-9) MONO % (test code = 9.5 % 5905-5) EOS % (test code = 1.6 % 713-8) BASO % (test code = 0.7 % 706-2) GRAN MAT x10^3(ANC) 5.91 10*3/uL 1.88-7.09 (test code = 8496824861) IMM GRAN x10^3 (test 0.03 10*3/uL 0.00-0.06 code = 9096341253) LYMPH x10^3 (test code 2.48 10*3/uL 1.32-3.29 = 731-0) MONO x10^3 (test code 0.91 10*3/uL 0.33-0.92 = 742-7) EOS x10^3 (test code = 0.15 10*3/uL 0.03-0.39 711-2) BASO x10^3 (test code 0.07 10*3/uL 0.01-0.07 = 704-7) Lab Interpretation Abnormal (test code = 57233-7) [facility] [id number] 22:24:55 Test Item Value Reference Interpretation Comments Range TROPONIN I (test 0.002 ng/mL See_Comment [Automated code = 6898966863) message] The system which generated this result [...] biotin. Lab Interpretation Normal (test code = 85642-5) [facility] 22[facility]24:34 Test Item Value Reference Range Interpretation Comments [place] (test code = <0.2 0.6-1.2 L 0443200618) PERRY (test code = PERRY) Toxic Range: ? Greater than 1.2 mmol/L Lab Interpretation (test Abnormal code = 38117-1) [facility] METABOLIC PANEL (12860)2021-09-09 22:13:54 Test Item Value Reference Range Interpretation Comments NA (test code = 139 mmol/L 135-145 5813087309) K (test code = 4.0 mmol/L 3.5-5.0 4623711451) CL (test code = 105 mmol/L 98-108 3486669619) CO2 TOTAL (test code 26 mmol/L 23-31 = 9280226779) AGAP (test code = 2-16 6059800635) BUN (test code = 11 mg/dL 7-23 7339635392) GLUCOSE (test code = 109 mg/dL 70-110 4438330221) CREATININE (test code 0.71 mg/dL 0.50-1.04 = 7426134644) TOTAL BILI (test code 0.6 mg/dL 0.1-1.1 = 7868089077) CALCIUM (test code = 10.4 mg/dL 8.6-10.6 6680228919) T PROTEIN (test code 7.6 g/dL 6.3-8.2 = 6807340689) ALBUMIN (test code = 4.7 g/dL 3.5-5.0 2959494489) ALK PHOS (test code = 78 U/L 34-122 5552518625) ALTv (test code = 19 U/L 5-35 1742-6) AST(SGOT) (test code 28 U/L 13-40 = 2104176872) eGFR (test code = mL/min/1.73m2 9985049973) PERRY (test code = PERRY) Association of [...] urine or abnormalities in imaging tests). [facility] WITH TEJH7161-35-02 22:03:32 Test Item Value Reference Range Interpretation Comments WBC (test code = See_Comment [Automated 3890-2) message] The sy stem which generated this [...] RDW-SD (test code = 40.2 fL 39.0-49.9 19993-3) RDW-CV (test code = 12.9 % 12.0-15.5 788-0) PLT (test code = See_Comment H [Automated 777-3) message] The sy stem which generated this result transmitted reference range : 166 - 358 10*3/ ?L. The reference r katie was not used to interpret this result as normal/abnormal . MPV (test code = 9.4 fL 9.5-12.9 L 53871-2) NRBC/100 WBC (test See_Comment [Automat ed code = 8133935548) message] The system which generated this result transmitted reference range : 0.0 - 10.0 /100 WBCs. The refer ence range was not u sed to interpret th is result as normal/abnormal . NRBC x10^3 (test code <0.01 See_Comment [Auto mated = 6053992133) message] The s ystem which generated this result transmitted reference range : 10*3/?L. The reference range was not used to interpret this result as normal/abnormal . GRAN MAT (NEUT) % 67.1 % (test code = 770-8) IMM GRAN % (test code 1.00 % = 7396577097) LYMPH % (test code = 21.4 % 736-9) MONO % (test code = 7.9 % 5905-5) EOS % (test code = 1.8 % 713-8) BASO % (test code = 0.8 % 706-2) GRAN MAT x10^3(ANC) 7.35 10*3/uL 1.88-7.09 H (test code = 3663091423) IMM GRAN x10^3 (test 0.11 10*3/uL 0.00-0.06 H code = 0499994927) LYMPH x10^3 (test code 2.34 10*3/uL 1.32-3.29 = 731-0) MONO x10^3 (test code 0.86 10*3/uL 0.33-0.92 = 742-7) EOS x10^3 (test code = 0.20 10*3/uL 0.03-0.39 711-2) BASO x10^3 (test code 0.09 10*3/uL 0.01-0.07 H = 704-7) Lab Interpretation Abnormal (test code = 88041-0) [facility] - INFLUENZA A & B DIRECT VWGUTXZ2307-85-76 14:04:00 Test Item Value Reference Range Interpretation Comments Influenza A (test code = 08270-3) Negative Negative Influenza B (test code = 10684-9) Negative Negative Lab Interpretation (test code = Normal 45395-3) [facility] (ID NOW RAPID TESTING)2020-09-30 14:03:00 Test Item Value Reference Range Interpretation Comments SARS-CoV-2 Rapid ID NOW Not Detected Not Detected (test code = 92188-3) PERRY (test code = PERRY) ID NOW COVID-19 Assay is an isothermal nucleic acid amplification test intended for the qualitative detection of nucleic acid from SARS-CoV-2 viral RNA in nasopharyngeal (CLINICAL REHABILITATION LIAISON) specimens. It is used under Emergency Use [...] indicated. Lab Interpretation Normal (test code = 73218-2) [facility]2020-[facility]07 13:55:00 Test Item Value Reference Range Interpretation Comments APPEARANCE (test code = Hazy Clear A 8798629399) COLOR (test code = Yellow Yellow 1273338189) PH (test code = 4.8-8.0 6232059790) SP GRAVITY (test code = 1.003-1.030 8138472572) GLU U QUAL (test code = Normal Normal 8303956825) BLOOD (test code = Negative Negative 6438201253) KETONES (test code = 5 mg/dL Negative A 8478439275) PROTEIN (test code = Negative Negative 2887-8) UROBILIN (test code = 2.0 mg/dL Normal A 5780329116) BILIRUBIN (test code = Negative Negative 2287893205) NITRITE (test code = Negative Negative 7811202950) LEUK ROZINA (test code = 25/uL Negative A 1649875632) RBC/HPF (test code = See_Comment [Autom ated message] 2937030154) The system [employer] generated this result transmit ngozi reference range : 0 - 3 HPF. The refe rence range was not u sed to interpret th is result as normal/abnormal . WBC/HPF (test code = See_Comment [Autom ated message] 9870856575) The system [employer] generated this result transmit ngozi reference range : 0 - 5 HPF. The refe rence range was not u sed to interpret th is result as normal/abnormal . BACTERIA (test code = Few Negative A 6026222441) MUCOUS (test code = Slight Negative LPF A 4405202065) SQ EPITH (test code = HPF 6164203491) Lab Interpretation (test Abnormal code = 79134-2) [facility] TexasRPR Ethhazdfctv5102-24-03 16:42:24 Test Item Value Reference Range Interpretation [...] = 10-24-2020 N Expiration Dt) Thyroid Stimulating Uxbrcns0447-52-61 08:35:16 Test Item Value Reference Range Interpretation Comments TSH (test code = TSH) 1.170 mIU/mL 0.270-4.200 Lipid Qibth3901-03-94 08:21:19 Test Item Value Reference Range Interpretation [...] calculation is LDL/HDL Ratio=L DL Calc/HDL Chol QYXGTQDDKEZY5488-77-48 08:24:0027[facility] HutqohkUATKMIUUZSYP5393-73-15 08:24:00 139[facility] KczjgdtXPKSKYZVXSNL6318-05-14 08:24:003.6[facility] EWZTSGFZCYQN8915-02-02 08:24:000.70[facility] KxnprrmVOIBNCQNBNUA1304-37-97 08:24:008.4[facility] LxetwsuVTEFUZMTUHEY3983-32-66 08:24:20722Ykxjmxmy Yonis RXCTMGPNBDSQ9897-41-40 08:24:0086[facility] PisrrrsJSSMYJMLBVGU1110-89-58 08:24:00 6[facility] OhvcyfrODZZGVJIFR5682-27-79 08:24:0011.6[facility]annHEMATOLOGY 2019-01-26 08:24:003.78[facility] YtkqepkGNKUONQWOL3099-67-85 08:24:0013.3[facility] IwqggahLKXSRSMYMU7092-34-09 08:24:0034.0[facility] BosvppeKFJWTQGUEH4322-47-94 08:24:006.3[facility] EjzuiaqZXKXTEDQFQ1946-44-74 08:24:00 Test Item Value Reference Range Interpretation Comments MCH (test code = MCH) 30.7 pg 27.0-31.0 [facility] DysalzdBYVLMJXTLI2822-52-11 08:24:0090.3[facility] HermannHEMATOLOGY 2019-01-26 08:24:0034.2[facility] EllsvvkRKPUMLKRJU1683-72-32 08:24:01970Yxavymds GyrljkoEMYGTSZQNT3815-63-91 08:24:007.5[facility] ZkmspdyZSZSHLJXRCLI5222-41-51 08:24:008.6[facility] MrchkgfGLPPGQDPPNCE1524-29-69 08:24:20555Bfryylvn Ermine YGIJOCEYINHG5830-07-18 08:24:0027[facility] DzaffzfWAJTHRMIBRLT5849-99-04 08:24:00 139[facility] AqejwqdGSCQDKGGBBXB4303-23-80 08:24:003.6[facility] QTWHTLTDJQNR3696-19-03 08:24:000.70[facility] EpnacivVHGLQLJKUJZE2269-07-56 08:24:008.4[facility] VtzfzefCAIDYBDBOSKA7506-76-45 08:24:74545Vskzbkoi Ermine GOMITDFNYZSG5607-91-56 08:24:0086[facility] LkqjeogGCYRMWSLDIYZ7088-58-30 08:24:00 6[facility] LqdaqldGHICAYAONS9975-39-92 08:24:0011.6[facility] HermannHEMATOLOGY 2019-01-26 08:24:003.78[facility] ShdbkiwJGFWGWWDGA6602-31-98 08:24:0013.3[facility] WmjrurdAIXVGWTGHN0882-96-47 08:24:0034.0[facility] SogdqmrJQWHZMDGAY9882-23-64 08:24:006.3[facility] ZbvabusOAWSMOYHQJ8281-02-78 08:24:00 Test Item Value Reference Range Interpretation Comments MCH (test code = MCH) 30.7 pg 27.0-31.0 [facility] WvmldieQCDRYUJIRU0310-49-96 08:24:0090.3[facility] HermannHEMATOLOGY 2019-01-26 08:24:0034.2[facility] KezknxrDGRXEHYVZV2559-43-12 08:24:82873Ytqibcbe VyfxobsSXXCOWCRMI4614-75-55 08:24:007.5[facility] KgjafriCKZJLXUQBRAC5844-27-53 08:24:008.6[facility] HpmhmaxQFXMDNQWPYJH7074-33-28 08:24:42844Yvrqnhtv Ermine CHEM HRMDG4438-74-59 09:14:42695Crqssnoz HermannCHEM ZQFMW9660-40-16 09:14:008.5 [facility]annCHEM VXGUZ0127-35-12 09:14:0013.3[facility]annCHEM PANEL 2019-01-25 09:14:0024[facility] HermannCHEM ZDGKL2096-42-77 09:14:13311Ueabunve HermannCHEM VFPNB1783-04-19 09:14:0081[facility]annCHEM ATDJS0553-24-73 09:14:002[facility]annCHEM HMYCF8442-16-60 09:14:003.3[facility]annCHEM WSHOO3232-41-87 09:14:000.60[facility] HermannCHEM NYDMU6187-85-28 09:14:25780 [facility]annCHEM LBLBR7642-03-72 09:14:05344Olgsnuzq HermannCHEM PANEL 2019-01-25 09:14:008.5[facility] HermannCHEM ICIDR0412-06-91 09:14:0013.3[facility]annCHEM NARPV5175-94-70 09:14:0024[facility]annCHEM RZKKL1972-08-38 09:14:24950Nmasuzte HermannCHEM XPSRT7961-41-96 09:14:0081[facility]annCHEM XUKKF7297-81-06 09:14:002[facility]annCHEM TUIQB9342-68-64 09:14:003.3 [facility]annCHEM NACKV5700-97-64 09:14:000.60[facility]annCHEM PANEL 2019-01-25 09:14:38789Jsgmfkda HermannMOLECULAR VKRDGKAXOE1304-36-36 16:22:00 Negative (01/23/19 11:22 AM)[facility] HermannMOLECULAR QYSMLLNAGV9696-50-13 16:22:00Negative (01/23/19 11:22 AM)[facility]annCHEM EEUDX5780-19-28 15:42:00 2.76[facility]annCHEM OECXT5860-79-72 15:42:002.76[facility]annCHEM PANEL 2019-01-23 12:32:000.9[facility]annCHEM QNZNT7766-83-09 12:32:000.9[facility]annCHEM PAZEE4777-72-31 10:50:002.0[facility]annCHEM DTHFJ5217-72-37 10:50:40319Badvhfqo HermannCHEM LKGHZ1707-12-61 10:50:0023[facility] HermannCHEM MJKWE5375-04-69 10:50:14985Ydefzxfx HermannCHEM TJZPE2720-41-35 10:50:003.1 [facility]annCHEM OPECN0839-27-09 10:50:89036Oxkazubp HermannCHEM PANEL 2019-01-23 10:50:005[facility] HermannCHEM LRAHR8507-08-68 10:50:000.50[facility]annCHEM ZXOJB0195-95-76 10:50:007.8[facility] HermannCHEM SDSGI4795-93-44 10:50:0083[facility]annCHEM BOOBO0236-72-38 10:50:0010.1[facility] CDSZMUALYN9153-32-47 10:50:000.2[facility] IvuppwzEIXOUFUXJQ5890-25-49 10:50:000.8 [facility] InifyefCJONFDOWDX7052-98-42 10:50:005.5[facility] HermannHEMATOLOGY 2019-01-23 10:50:002.2[facility] AfdsxsnUJNALXRWNA9444-86-07 10:50:000.1[facility] HkbuyfxBGGFWYKMZA8968-87-14 10:50:0063.6[facility] ZkvxmcqMBNSLQXAQV1392-04-23 10:50:008.9[facility] EczxmgcGXXNVFAITZ3281-44-72 10:50:002.3[facility] WQGTSLOXPH0008-63-87 10:50:00Normal (01/23/19 5:50 AM)[facility]annHEMATOLOGY 2019-01-23 10:50:00Normal (01/23/19 5:50 AM)[facility] DvlkketBHMPVZTWRY3138-16-65 10:50:0025.1[facility] NldjbilTEMLXZLABG1237-98-91 10:50:0013.1[facility] FGGGGJRCMG5308-12-83 10:50:73096Sfpwjwln ZqjveocVFEDQLYULO6499-67-20 10:50:007.7 [facility] NhzwstgIFNHZQQVLZ1080-34-05 10:50:008.6[facility]annHEMATOLOGY 2019-01-23 10:50:0010.0[facility] EeuelrlDOXTJQLDET2001-86-28 10:50:0034.emorial ZpzkwsrZOXKJKFCVB8514-36-76 10:50:0028.7[facility] DerqvqqRUUEYEXNTR9427-22-06 10:50:0087.8[facility] YcsuiqyRWAVEYIOEN2540-27-81 10:50:00 Test Item Value Reference Range Interpretation Comments MCH (test code = MCH) 30.4 pg 27.0-31.0 [facility] SxnybxwMWSWTXCIGR6440-65-52 10:50:003.27[facility] HermannHEMATOLOGY 2019-01-23 10:50:81752Uwrbmwzn ExunbacDMGBXIBLMR5635-82-99 10:50:007.7[facility] YamfooyZHGSLYQJKX1733-34-21 10:50:008.emorial YavsditWGSGVSZENU6589-79-00 10:50:0010.0[facility] PwtgfcbLZGNDYWXPG4359-62-12 10:50:0034.6[facility] Ermine UMHETXKOZW6108-64-39 10:50:0028.7[facility] HermannCHEM FRIMA5316-25-61 10:50:00 2.0[facility] HermannCHEM NHHTE4102-04-39 10:50:32146Zeumydda HermannCHEM PANEL 2019-01-23 10:50:0023[facility]annCHEM XHTIR1267-36-94 10:50:36240Oazpleij HermannCHEM KKZFM4701-76-15 10:50:003.1[facility] LglcyboFCCHDLGQDO5269-58-31 10:50:0087.8[facility] HermannCHEM YHUIA7028-25-47 10:50:21353Zsfdgtuj HermannCHEM JKEEC4494-94-06 10:50:005[facility] HermannCHEM FHPCX8286-20-28 10:50:000.50 [facility]annCHEM IXUCD4017-19-74 10:50:007.8[facility] HermannCHEM PANEL 2019-01-23 10:50:0083[facility]annCHEM ZCXXR3160-24-75 10:50:0010.1[facility] IkecdgfRUBPITODYB2606-53-09 10:50:00 Test Item Value Reference Range Interpretation Comments MCH (test code = MCH) 30.4 pg 27.0-31.0 [facility] RdtfgdqHATOKVJMXE8398-35-10 10:50:000.2[facility] HermannHEMATOLOGY 2019-01-23 10:50:000.8[facility] TvjzudyKDJSBVQQRD5143-79-07 10:50:005.5[facility] AtjcrupLIOMXGRXSV8981-46-15 10:50:002.2[facility] CppauucMVZXPHVQDK2203-91-36 10:50:000.1[facility] RddonbgJFONAGXQYS1693-26-78 10:50:003.27[facility] UREATMVFVK3524-70-90 10:50:0063.6[facility] PhdfsktMYLJZARHAV7537-09-81 10:50:00 8.9[facility] CczbvyxHUYUCOEPGJ7417-85-91 10:50:002.3[facility]annHEMATOLOGY 2019-01-23 10:50:00Normal (01/23/19 5:50 AM)[facility] EnnblvhZVXIKCKDUP4195-20-52 10:50:00Normal (01/23/19 5:50 AM)[facility] QozwkmgHNLTZKBBJL3815-63-11 10:50:0025.1 [facility] MdxvwqfKHUNLAHYQN1956-86-22 10:50:0013.1[facility] HermannCHEM PANEL 2019-01-22 11:32:002.4[facility] HermannCHEM ZWQRN1197-39-93 11:32:002.4[facility] HermannCHEM YVKUG3992-04-94 09:04:003.0[facility] HermannCHEM ZBKRD2534-90-02 09:04:003.0[facility]annURINE AND BNGLO4040-62-22 07:14:00 Test Item Value Reference Range Interpretation Comments UA Spec Grav (test code = UA Spec 1.014 1 Grav) [facility] ILCVW5205-69-16 07:14:00 Test Item Value Reference Range Interpretation Comments UA pH (test code = UA pH) 6.0 1 5.0-8.0 [facility] CVLXC5703-66-41 07:14:00Negative (01/22/19 2:14 AM) [facility] MORKW2052-29-76 07:14:00Negative *NA*(01/22/19 2:14 AM) [facility] SDQLL9312-10-08 07:14:00Negative *NA*(01/22/19 2:14 AM) [facility] MOAQP3443-07-83 07:14:00Negative *NA*(01/22/19 2:14 AM) [facility] CZPQG1329-34-23 07:14:00Negative (01/22/19 2:14 AM) [facility] MUCGF0110-32-26 07:14:00Negative (01/22/19 2:14 AM) [facility] JXRRN9045-09-65 07:14:00Negative (01/22/19 2:14 AM) [facility] CAGGO9774-25-02 07:14:00<1[facility] VIUBF2974-02-12 07:14:0025[facility] AND VDKOU7024-30-41 07:14:002 [facility] YLPLA1681-63-36 07:14:00Light Yellow *NA*(01/22/19 2:14 AM)[facility] RWAAG5445-99-22 07:14:00Clear (01/22/19 2:14 AM) [facility] JHQYX1336-21-65 07:14:00 Test Item Value Reference Range Interpretation Comments UA Spec Grav (test code = UA Spec 1.014 1 Grav) [facility] XBSQB3009-11-38 07:14:00 Test Item Value Reference Range Interpretation Comments UA pH (test code = UA pH) 6.0 1 5.0-8.0 [facility] EIEWN2303-37-58 07:14:00Negative (01/22/19 2:14 AM) [facility] ZIAMJ2398-23-01 07:14:00Negative *NA*(01/22/19 2:14 AM) [facility] JIYKM0680-93-98 07:14:00Negative *NA*(01/22/19 2:14 AM) [facility] KWAKI7015-89-36 07:14:00Negative *NA*(01/22/19 2:14 AM) [facility] UXTHZ1028-38-45 07:14:00Negative (01/22/19 2:14 AM) [facility] HQNNH6807-79-77 07:14:00Negative (01/22/19 2:14 AM) [facility] LFCLC4010-44-20 07:14:00Negative (01/22/19 2:14 AM) [facility] YPCKN9174-66-30 07:14:00<1[facility] VDJIY0946-48-09 07:14:0025[facility] QISKX3332-53-14 07:14:002 [facility] LLCRW6763-52-90 07:14:00Light Yellow *NA*(01/22/19 2:14 AM)[facility] LEAXZ6224-84-45 07:14:00Clear (01/22/19 2:14 AM) [facility] CqbgjumNWEWV2000-08-60 05:16:000.90[facility] FhfcdcbUJJPY7202-23-02 05:16:000.90[facility] HermannBLOOD BANK UFQBKFX9742-31-35 05:01:00Negative (01/22/19 12:01 AM)[facility]annCARDIAC FVRCDNE1694-07-57 05:01:00<0.02 [facility]annCARDIAC XCNREMT9817-36-12 05:01:0049[facility]annCHEM PANEL 2019-01-22 05:01:000.6[facility] HermannCHEM XKERT9275-73-95 05:01:66207Cebgscxq HermannCHEM QMLZC0034-94-02 05:01:004.0[facility] HermannCHEM FGYGI1384-24-91 05:01:0017[facility] HermannCHEM OSRRU7841-83-19 05:01:0025[facility]annCHEM JXPLL0088-96-42 05:01:008.1[facility]annCHEM TLUDP3734-16-41 05:01:00 Test Item Value Reference Range Interpretation Comments B/C Ratio (test code = B/C Ratio) 20 1 6-25 [facility]annCHEM LAVYE8469-02-41 05:01:00 Test Item Value Reference Range Interpretation Comments A/G Ratio (test code = A/G Ratio) 1.0 1 0.7-1.6 [facility]annCHEM JBAGI4926-72-35 05:01:004.1[facility]annCHEM PANEL 2019-01-22 05:01:006.90[facility] VpmkjdkUMWZZSWFGGBPO9494-12-28 05:01:00Negative *NA*(01/22/19 12:01 AM)[facility] RkbrpyuMIKTHBAMQG4685-95-20 05:01:000.1[facility] CjvliieQICBZTXIMP2627-38-90 05:01:000.7[facility] RzvgetnPBJFYOYBEG4958-13-64 05:01:000.0[facility] DyubujrKWRAJBDSBA4287-65-68 05:01:000.0[facility] MNCLLZPSLA9906-13-42 05:01:000.9[facility] PbadyghZEZBDWLCHC7649-94-03 05:01:008.6 [facility] ZlyvwhhVOFNAUDJSD3200-00-43 05:01:000.6[facility]annHEMATOLOGY 2019-01-22 05:01:0086.5[facility] DnfepkzWXNHQTEIEV1112-39-38 05:01:005.7[facility] WmrwojfIZMTQRKSGC6048-29-40 05:01:006.9[facility] ZlnkrglUUIUNHOYCG5015-94-53 05:01:009.9[facility] GwmqzesICOKOAUJRD0713-34-92 05:01:0032.8[facility] PVFNIWMMGX1296-22-86 05:01:0013.6[facility] NvhqxxfTTZZVQVCAL6453-74-30 05:01:00 443[facility] IbxoppkANZSOEOVLN8061-16-30 05:01:007.3[facility]annHEMATOLOGY 2019-01-22 05:01:0014.0[facility] IbnevriZRKJXLVPBT2193-59-11 05:01:004.85[facility] PtciwtlHXQMXDUMLR9259-11-99 05:01:0042.7[facility] ZaxzdykFTYFOFJQZV1627-24-18 05:01:00 Test Item Value Reference Range Interpretation Comments MCH (test code = MCH) 29.0 pg 27.0-31.0 [facility]STL0083[facility]71-23 05:01:0088.2[facility]annHEMATOLOGY 2019-01-22 05:01:00 Test Item Value Reference Range Interpretation Comments INR (test code = INR) 0.96 1 0.85-1.17 [facility]JfnfrjsCSQERRKWAX6507-46-22 05:01:00 Test Item Value Reference Range Interpretation Comments PT (test code = PT) 12.6 s 12.0-14.7 [facility]PiestnuFFIWBCVQEV2607-21-94 05:01:00 Test Item Value Reference Range Interpretation Comments PTT (test code = PTT) 25.9 s 22.9-35.8 [facility] MTFDOXI2357-93-85 05:01:00Negative (01/22/19 12:01 AM) [facility]annCARDIAC JZKQXVS1891-82-65 05:01:00<0.02[facility] CARDIAC DAVWEJZ4105-67-85 05:01:0049[facility] HermannCHEM MVZVK7339-53-94 05:01:000.6[facility] HermannCHEM RGDKE3109-84-51 05:01:23256Bshsxeln HermannCHEM ECARW5591-10-32 05:01:004.0[facility] HermannCHEM TLETB0828-97-29 05:01:0017 [facility]annCHEM RNDGM5790-06-75 05:01:0025[facility]annCHEM PANEL 2019-01-22 05:01:008.1[facility] HermannCHEM SWHKB1079-17-67 05:01:00 Test Item Value Reference Range Interpretation Comments B/C Ratio (test code = B/C Ratio) 20 1 6-25 [facility]annCHEM WXRWZ4091-69-46 05:01:00 Test Item Value Reference Range Interpretation Comments A/G Ratio (test code = A/G Ratio) 1.0 1 0.7-1.6 [facility]annCHEM HZGWR9603-86-41 05:01:004.1[facility]annCHEM PANEL 2019-01-22 05:01:006.90[facility] VosdfjiNTOWJRCSRJGWX2452-97-12 05:01:00Negative *NA*(01/22/19 12:01 AM)[facility] QncnipzGDEMWCCERS8139-26-28 05:01:000.1[facility] XjpboygFGYEDCHNFO0360-37-11 05:01:000.7[facility] CoeabssFIKCEDATDD4837-15-72 05:01:000.0[facility] PfmjidzZEXKKNJVHV0107-97-69 05:01:000.0[facility] MKVMBLWOXZ0779-34-01 05:01:000.9[facility] WbxyqjqFIFGTBKPTJ3503-97-19 05:01:008.6 [facility] SwgwhmqMMZDNVCNRG4936-24-31 05:01:000.6[facility]annHEMATOLOGY 2019-01-22 05:01:0086.5[facility] QgbzayxKOSUPNUMYM2719-56-17 05:01:005.7[facility] NtruhcxIAJVOWNCYI3007-32-99 05:01:006.9[facility] UrbnxnhQJDNBKCBNB8786-85-86 05:01:009.9[facility] XsydlmzZMEDDXXOTU8712-68-16 05:01:0032.8[facility] EGXTCDQMZC0302-20-11 05:01:0013.6[facility] HnpnzesANUYNEKBAN1582-25-81 05:01:00 443[facility] BffkmvoUSMJRNWIMS1653-74-43 05:01:007.3[facility] 2019-01-22 05:01:0014.0[facility] RudzrfrAWXRCRSOOT2437-33-51 05:01:004.85[facility] EvjkblpNHUHWPJBEO1663-06-94 05:01:0042.7[facility] RqilgcmXYMPEBZFMP9547-92-18 05:01:00 Test Item Value Reference Range Interpretation Comments MCH (test code = MCH) 29.0 pg 27.0-31.0 [facility]13 05:01:0088.2[facility] 2019-01-22 05:01:00 Test Item Value Reference Range Interpretation Comments INR (test code = INR) 0.96 1 0.85-1.17 [facility]EEGF2821[facility]97-99 05:01:00 Test Item Value Reference Range Interpretation Comments PT (test code = PT) 12.6 s 12.0-14.7 [facility]JK7535-35-27 05:01:00 Test Item Value Reference Range Interpretation Comments PTT (test code = PTT) 25.9 s 22.9-35.8 [facility]xmalmxMMX7X0407-49-35 14:36:00 Test Item Value Reference Range Interpretation [...] 0.00-0.01 N code = ETOHU) Comprehensive Metabolic Knzzh7077-03-10 14:36:00 Test Item Value Reference Range Interpretation [...] the [employer],http :[email or web address].nih.gov Urinalysis Grblbiwz3470-80-69 14:32:00 Test Item Value Reference Range Interpretation Comments Color (test code = COLOR) Yellow Yellow,Straw,Pl N yellow Clarity (test code = Clear Clear N CLAR) Specific [place] (test 1.024 1.001-1.035 N code = SPGR) [...] code = Few /HPF BACT) CBC with Oxuzjmbqfxdx3570-12-74 14:21:00 Test Item Value Reference Range Interpretation [...] code = ALYMPH) 3.0 K/cumm 0.5-4.6 N [place] Abs (test code = AMONO) 0.5 K/cumm 0.0-1.2 N Eos Abs (test code = AEOS) 0.19 K/cumm 0.00-0.74 N Baso Abs (test code = ABASO) 0.1 K/cumm 0.00-0.21 N
--- NOTE | 2021-09-29 18:21 | ER ---
Nurse's Notes [facility] Name: Tiffany Quinn Age: 51 yrs Sex: Female : 1970 Arrival Date: 09/29/2021 Time: 18:11 Bed DIS3 Private MD: Diagnosis: Generalized anxiety disorder Presentation: 09/29 18:18 Chief complaint: Patient states: was sitting at home and I started to feel dizzy, I iw also feel like I have a hernia , I just got worried so I came here. Coronavirus screen: At this time, the client does not indicate any symptoms associated with coronavirus-19. Ebola Screen: Patient negative for fever greater than or equal to 101.5 degrees Fahrenheit, and additional compatible Ebola Virus Disease symptoms Patient denies exposure to infectious person. Patient denies travel to an Ebola-affected area in the 21 days before illness onset. No symptoms or risks identified at this time. Initial Sepsis Screen: Does the patient meet any 2 criteria? No. Patient's initial sepsis screen is negative. Does the patient have a suspected source of infection? No. Patient's initial sepsis screen is negative. Risk Assessment: Do you want to hurt yourself or someone else? Patient reports no desire to harm self or others. Onset of symptoms was September 29, 2021. 18:18 Method Of Arrival: Ambulatory iw 18:18 Acuity: MANUEL 4 iw Historical: - Allergies: 18:20 Pepcid; iw 18:20 Toradol; iw - Home Meds: 18:20 hydroxyzine HCl Oral [Active]; Phenergan Oral [Active]; Vraylar Oral [Active]; iw - PMHx: 18:20 ADD; Anxiety; Bipolar disorder; iw - PSHx: 18:20 Cholecystectomy; hernia repair; iw Screenin:21 Abuse screen: Denies threats or abuse. Denies injuries from another. Nutritional iw screening: No deficits noted. Tuberculosis screening: No symptoms or risk factors identified. Assessment: 18:20 General: Appears in no apparent distress. Behavior is calm, cooperative. Pain: Denies iw pain. Neuro: Level of Consciousness is awake, alert, obeys commands, Oriented to person, place, time, situation, Moves all extremities. Full function. Cardiovascular: Patient's skin is warm and dry. Respiratory: Respiratory effort is even, unlabored, Respiratory pattern is regular, symmetrical. Derm: Skin is intact, is healthy with good turgor. Musculoskeletal: Range of motion: intact in all extremities. Vital Signs: 18:18 BP 131 / 75; Pulse 109; Resp 18 S; Temp 98.0; Pulse Ox 99% on R/A; iw ED Course: 18:11 Patient arrived in ED. am2 18:15 Guanako Palomino [facility]. jr8 18:15 Bill Palm MD is Attending Physician. jr8 18:17 Chante Warner, RN is Primary Nurse. iw 18:20 Triage completed. iw 18:20 Arm band placed on. iw Administered Medications: No medications were administered Outcome: 18:20 Discharge ordered by . jr8 18:23 Patient left the ED. iw Signatures: Chante Warner, RN RN iw Guanako Palomino PA PA jr8 Gaetano Malcolmanda am2
[2021-09-29 18:28] VITALS: BP 131/75; TEMP 98; O2SAT 99
--- NOTE | 2021-09-30 18:23 | EDPHYS ---
Physician Documentation [facility] Name: Tiffany Quinn Age: 51 yrs Sex: Female : 1970 Arrival Date: 09/29/2021 Time: 18:11 Bed DIS3 Private MD: ED Physician Bill Palm HPI: 09/29 18:30 This 51 yrs old Female presents to ER via Ambulatory with complaints of Anxiety. jr8 18:30 This is a 51-year-old female that presented to the emergency room with complaints that jr8 her belly looks larger than normal and she was anxious about that. Wanted to make sure that she was okay. Stated that she took her promethazine earlier today for nausea along with her antianxiety medicine. Stated that she smoked methamphetamines last about 4 days ago. Denies any abdominal pain, nausea, vomiting, fevers, tenderness.. Historical: - Allergies: 18:20 Pepcid; iw 18:20 Toradol; iw - Home Meds: 18:20 hydroxyzine HCl Oral [Active]; Phenergan Oral [Active]; Vraylar Oral [Active]; iw - PMHx: 18:20 ADD; Anxiety; Bipolar disorder; iw - PSHx: 18:20 Cholecystectomy; hernia repair; iw ROS: 18:30 Eyes: Negative for injury, pain, redness, and discharge, ENT: Negative for injury, jr8 pain, and discharge, Neck: Negative for injury, pain, and swelling, Cardiovascular: Negative for chest pain, palpitations, and edema, Respiratory: Negative for shortness of breath, cough, wheezing, and pleuritic chest pain, Abdomen/GI: Negative for abdominal pain, nausea, vomiting, diarrhea, and constipation, Back: Negative for injury and pain, MS/Extremity: Negative for injury and deformity, Skin: Negative for injury, rash, and discoloration, Neuro: Negative for headache, weakness, numbness, tingling, and seizure. 18:30 Psych: Positive for anxiety. Exam: 18:30 Constitutional: This is a well developed, well nourished patient who is awake, alert, jr8 and in no acute distress. Cardiovascular: Regular rate and rhythm with a normal S1 and S2. No gallops, murmurs, or rubs. Normal PMI, no JVD. No pulse deficits. Respiratory: Lungs have equal breath sounds bilaterally, clear to auscultation and percussion. No rales, rhonchi or wheezes noted. No increased work of breathing, no retractions or nasal flaring. Abdomen/GI: Soft, non-tender, with normal bowel sounds. No distension or tympany. No guarding or rebound. No evidence of tenderness throughout. Back: No spinal tenderness. No costovertebral tenderness. Full range of motion. Skin: Warm, dry with normal turgor. Normal color with no rashes, no lesions, and no evidence of cellulitis. MS/ Extremity: Pulses equal, no cyanosis. Neurovascular intact. Full, normal range of motion. Neuro: Awake and alert, GCS 15, oriented to person, place, time, and situation. Cranial nerves II-XII grossly intact. Motor strength 5/5 in all extremities. Sensory grossly intact. Cerebellar exam normal. Normal gait. 18:30 Psych: Behavior/mood is anxious, Affect is animated, Oriented to person, place, time, Patient has no thoughts/intents to harm self or others. Vital Signs: 18:18 BP 131 / 75; Pulse 109; Resp 18 S; Temp 98.0; Pulse Ox 99% on R/A; iw MDM: 18:15 Patient medically screened. jr8 18:30 Data reviewed: vital signs, nurses notes. Data interpreted: Pulse oximetry: on room air jr8 is 99 %. Interpretation: normal. Counseling: I had a detailed discussion with the patient and/or guardian regarding: the historical points, exam findings, and any diagnostic results supporting the discharge/admit diagnosis, the need for outpatient follow up, a psychiatrist, to return to the emergency department if symptoms worsen or persist or if there are any questions or concerns that arise at home. ED course: Discussed with patient that her abdominal exam was benign. No focal tenderness, guarding, rebounding or pain with palpation. Patient hemodynamically stable and afebrile. Recommended that she follow-up with her PCP and psychologist. Patient good with this at this time.. Administered Medications: No medications were administered Disposition: 09/30 07:06 Co-signature as Attending Physician, Bill Palm MD I agree with the assessment and jo plan of care. Disposition Summary: 09/29/21 18:20 Discharge Ordered Location: Home jr8 Problem: new jr8 Symptoms: have improved jr8 Condition: Stable jr8 Diagnosis - Generalized anxiety disorder jr8 Followup: jr8 - With: Private Physician - When: 2 - 3 days - Reason: Recheck today's complaints, Continuance of care, Re-evaluation by your physician Discharge Instructions: - Discharge Summary Sheet jr8 - Panic Attack jr8 Forms: - Medication Reconciliation Form jr8 - Thank You Letter jr8 - Antibiotic Education jr8 - Prescription Opioid Use jr8 Signatures: Bill Palm MD MD cha Williams, Irene, RN RN Guanako Pimentel PA PA jr8
== END 2021-09-29 18:23 | disposition home or self-care (01) ==
LOC: ER 18:11
DX: F41.1 Generalized anxiety disorder (principal); F31.9 Bipolar disorder, unspecified; Z88.5 Allergy status to narcotic agent; Z88.8 Allergy status to other drugs, medicaments and biological substances
CPT/HCPCS: 99281

== ENCOUNTER 2021-09-29 19:07 | Emergency (ER) | payer OTHER ==
--- OUTSIDE RECORDS SUMMARY | 2021-09-29 19:14 | XMS REPORT | Continuity of Care Document ---
:1970 Author Organization [facility] t Address [address] [place] [address] Care Team Providers Name Role Phone UNKNOWN [...] Policy Number Effective Date Expiration Date S [facility] OF [place] - [id number] 2020 [place] 00:00:00 (MEDICARE REPLACEMENT/ADVANT AGE - [...] 00 GASTROENTE RITIS AND COLITIS Active 01/21/2019 [facility] Irregular Irregular Disease Active Uni vers menstrual menstrual 8-15 ity of cycle cycle 00:00: [address] Skin Skin Disease Active Univers lesion lesion 8-15 ity of 00:00: [address] Psychiatri Psychiatri Disease Active U nivers c disorder c disorder 8-15 it y of 00:00: [address] Well woman Well woman Disease Active U nivers exam with exam with 8-15 ity of routine routine 00:00: [place] gynecologi gynecologi 00 Me dical nicky exam nicky exam Branch INFECTIOUS Diagnosis Active 2019-02-06 Memoria GASTROENTE 08:58:00 l RITIS AND Yonis COLITIS, INFECTIOUS GASTROENTE RITIS AND COLITIS, Active [facility] Allergies, Adverse Reactions, Alerts Allergy Allergy Status Severity Reaction(s) Onset Inactive Treating Comm ents Source Name Type Date Date Clinician Phenerga Phenerga Active Memori a n n l Yonis NO KNOWN Drug Active Univers ALLERGIE Class ity of S [facility] Social History Social Habit Start Date Stop Date Quantity Comments Source History of Cigarette Smoker Universi ty of tobacco use [facility] Tobacco Comment 2-3 cigs a day [facility] Exposure to Not sure [place] of SARS-CoV-2 [facility] (event) [place] Tobacco use and 2016-06-08 2016-06-08 [facility] 00:00:00 [facility] Alcohol intake 2016-06-08 2016-06-08 0 /d University of 00:00:00 00:00:00 [facility] Sex Assigned At [birth year] Universit y of 00:00:00 00:00:00 [facility] Smoking Status Start Date Stop Date Source Social History 2019-01-22 05:00:12 [facility] Her urena Current some day smoker 2016-06-08 00:00:00 [facility] Medications Ordered Filled Start Stop Current Ordering Indication Dosage Frequency Signature Comments Components Source Medication Medication Date Date Medication? Clinician (SIG) Name Name cefTRIAXone 2020-10- No 1000mg 1,000 mg, Univers (ROCEPHIN) 17 11-17 IV ity of 1,000 mg in 08:30: 08:01 [place], [place] NaCl 0.9% 00 :00 ONCE, 1 [...] 09/09/21 at 2330, RANDA amoxicillin 2020-10 Yes [id number] 500mg Take 1 Univers 500 mg 11-10 capsule by ity of capsule 00:00: mouth 3 [place] 00 (three) Medical times Branch daily. ondansetron 2019-10- No 4mg 4 mg, [facility] ers (ZOFRAN-ODT 12-01 Oral, ity of ) 15:15: 14:16 ONCE, 1 [place] disintegrat 00 :00 dose, Mon Med ical ing tablet 09/30/20 at [facility] 4 mg 0915, Routine ondansetron 2019-10- No 4mg 4 mg, [facility] ers (ZOFRAN-ODT 12-01- Oral, ity of ) 14:30: 13:32 ONCE, 1 [place] disintegrat 00 :00 dose, Mon Med ical ing tablet 09/30/20 at [facility] 4 mg 0830, Routine ondansetron 2019-10 Yes [id number] 4mg Take 1 Univers 4 mg 2-07 tablet by ity of disintegrat 00:00: mouth [place] ing tablet 00 every 8 Medica l (eight) Branch hours as needed for Nausea and Vomiting (N/V). ondansetron 2019-10 Yes [id number] 4mg Take 1 Univers 4 mg 2-07 tablet by ity of disintegrat 00:00: mouth [place] ing tablet 00 every 8 Medica l (eight) Branch hours as needed for Nausea and Vomiting (N/V). ondansetron 2019-10 Yes [id number] 4mg Take 1 Univers 4 mg 2-07 tablet by ity of disintegrat 00:00: mouth [place] ing tablet 00 every 8 Medica l (eight) Branch hours as needed for Nausea and Vomiting (N/V). ondansetron 2019-10 Yes [id number] 4mg Take 1 Univers 4 mg 2-07 tablet by ity of disintegrat 00:00: mouth [place] ing tablet 00 every 8 Medica l (eight) Branch hours as needed for Nausea and Vomiting (N/V). ciprofloxac 2019 Yes 500 mg = 1 Memoria in 500 mg 4-04 tab, PO, l oral tablet 17:35: [id number], X [place] 00 4 day, # 8 tab, 0 [...] 4-04 tab, PO, l oral tablet 17:35: [id number], X [place] 00 4 day, # 8 tab, 0 Refill(s) Ondansetron 2018- Yes 4 mg = 1 Me moria 4 MG Oral 4-04 tab, PO, l Tablet 17:35: Q6H, PRN [place] [Zofran] 00 Nausea/Vom iting, # 20 tab, [...] moria 01-24 Route: PO, l 14:00: QAM, [place] Dosing Weight 75, kg, Start date: 01/24/19 [...] ia 4- (Same As: l 18:00: KlonoPIN) [place] Flagyl No Notes: Memoria 4- (Same as: l 15:00: Flagyl) Yonis 00 Take with food/ avoid alcohol Cipro No Notes: May Memori a - interfere l 15:00: w/enteral Yonis 00 feedings - Take 1 hr before or 2 hrs after antacids, dairy pdt & minerals. On empty stomach. Flagyl No Notes: Memoria 4- (Same as: l 15:00: Flagyl) [place] 00 Take with food/ avoid alcohol Cipro No Notes: February Memori a 4- interfere l 15:00: w/enteral [place] 00 feedings - Take 1 hr before [...] PO, ONCE, l mEq oral 14:20: 0 [place] tablet, 00 Refill(s) extended release Metronidazo No 500 mg, Mem oria le 500 MG 4-01 PO, l Oral Tablet 14:20: [id number], 0 H ermann [Flagyl] 00 Refill(s) Ciprofloxac No 500 mg, Mem oria in 500 MG 01 PO, l Oral Tablet 14:20: [id number], 0 [place] [Cipro] 00 Refill(s) potassium Yes 40 mEq, Memor ia chloride 20 -01 PO, ONCE, l mEq oral 14:20: 0 [place] tablet, 00 Refill(s) extended release Metronidazo No 500 mg, Mem oria le 500 MG 4-01 PO, l Oral Tablet 14:20: [id number], 0 H ermann [Flagyl] 00 Refill(s) Ciprofloxac No 500 mg, Mem oria in 500 MG 4-01 PO, l Oral Tablet 14:20: [id number], 0 [place] [Cipro] 00 Refill(s) Potassium No Notes: Memori [...] tab, PO, l Tablet 21:08: BID, 0 [place] [Risperdal] 00 Refill(s) Strattera Yes 0.5 mg/kg, [...] tab, PO, l Tablet 21:08: BID, 0 [place] [Risperdal] 00 Refill(s) Zosyn No Notes: Memoria [...] oria 3-31 to exceed l 15:03: 400mg/day. [place] 00 (Same As: Ultram) Tramadol No Notes: [...] 01-22 Route: IM, l 09:47: Drug form: [place] 00 PDR/INJ, PRN, Dosing Weight 75.994, kg, [...] Memoria 3-31 (Same as: l 08:56: Zofran) [place] MEDICATION WASTE Product Size: 4 mg Product [...] moria IV - 1,000 l 05:44: ml/hr, [place] 00 Infuse Over: 1 hr, Route: IV, [...] 0.9% 3-31 Same as: l 04:52: BD [place] Posiflush Sterile NS (Bolus) No 1,000 mL, Me moria IV 3-31 1,000 l 04:51: ml/hr, Yonis 00 Infuse Over: 1 hr, Route: IV, 1,000, Drug form: INJ, ONCE, Priority: STAT, Dosing Weight 75.994 kg, Start date: 01/21/19 23:51:00 CDT, Stop date: 01/21/19 23:51:00 CDT NS (Bolus) No 1,000 mL, Me moria IV 01-22 1,000 l 04:51: ml/hr, [place] 00 Infuse Over: 1 hr, Route: IV, [...] HYDROBROMID 8-15 mouth. ity of E 19:02: [place] (CITALOPRAM 27 Medical ORAL) Branch ibuprofen 2016-0 Yes 200mg Take 200 Uni vers (ADVIL) 200 8-15 mg by ity of mg tablet 14:02: mouth [place] [address] every 6 Medical (six) Branch hours as needed. CLONAZEPAM 2016-0 Yes Take by Uni vers (KLONOPIN 8-15 mouth. ity of ORAL) 14:02: [address] Branch CITALOPRAM 2016-0 Yes Take by Uni vers HYDROBROMID 8-15 mouth. ity of E 14:02: [place] (CITALOPRAM 27 Medical ORAL) Branch ibuprofen 2016-0 Yes 200mg Take 200 Uni vers (ADVIL) 200 8-15 mg by ity of mg tablet 14:02: mouth [place] [address] every 6 Medical (six) Branch hours as needed. CLONAZEPAM 2016-0 Yes Take by Uni vers (KLONOPIN 8-15 mouth. ity of ORAL) 14:02: [address] Branch CITALOPRAM 2016-0 Yes Take by Uni vers HYDROBROMID 8-15 mouth. ity of E 14:02: [place] (CITALOPRAM 27 Medical ORAL) Branch ibuprofen 2016-0 Yes 200mg Take 200 Uni vers (ADVIL) 200 8-15 mg by ity of mg tablet 14:02: mouth [place] [address] every 6 Medical (six) Branch hours as needed. CLONAZEPAM 2016-0 Yes Take by Uni vers (KLONOPIN 8-15 mouth. ity of ORAL) 14:02: [place] [address] Medical Branch CITALOPRAM 2016-0 Yes Take by Uni vers HYDROBROMID 8-15 mouth. ity of E 14:02: [place] (CITALOPRAM 27 Medical ORAL) Branch misoprostol 2016-0 [...] H it y of en-caff 00:00: PRN. [place] (ESGIC) 00 Medical 50-325-40 Branch mg tablet butalbital- 2015-0 Yes TK 1 TO 2 U nivers acetaminoph 8-01 T PO Q 8 H it y of en-caff 00:00: PRN. [place] (ESGIC) 00 Medical 50-325-40 Branch mg tablet butalbital- 2015-0 Yes TK 1 TO 2 U nivers acetaminoph 8-01 T PO Q 8 H it y of en-caff 00:00: PRN. [place] (ESGIC) 00 Medical 50-325-40 Branch mg tablet butalbital- 2016-0 Yes TK 1 TO 2 U nivers acetaminoph 8-01 T PO Q 8 H it y of en-caff 00:00: PRN. [place] (ESGIC) 00 Medical 50-325-40 Branch mg tablet dextroamphe 0 Yes TK 1 T PO U nivers tamine-amph 7-20 BID. ity of etamine 00:00: [place] (ADDERALL) 00 Medical 20 mg Branch tablet dextroamphe Yes TK 1 T PO U nivers tamine-amph 7-20 BID. ity of etamine 00:00: [place] (ADDERALL) 00 Medical 20 mg Branch tablet dextroamphe Yes TK 1 T PO U nivers tamine-amph 7-20 BID. ity of etamine 00:00: [place] (ADDERALL) 00 Medical 20 mg Branch tablet [...] 2021-09-10 08:01:00 138 mm[Hg] Univer sity of [facility] Diastolic blood 2021-09-10 08:01:00 97 mm[Hg] Unive rsity of [facility] Heart rate 2021-09-10 08:01:00 87 /min [facility] Respiratory rate 2021-09-10 08:01:00 20 /min [facility] Oxygen saturation in 2021-09-10 08:01:00 98 /min University of Arterial blood by [place] [employer] [facility] Pulse oximetry Branch Body temperature 2021-09-10 04:28:51 37.17 Ruthann [facility] Body height 2021-09-10 04:26:00 154.9 cm [facility] Body weight 2021-09-10 04:26:00 81.647 kg [facility] BMI 2021-09-10 04:26:00 34.01 kg/m2 [facility] Systolic blood 2021-09-09 20:06:00 150 mm[Hg] Univer sity of [facility] Diastolic blood 2021-09-09 20:06:00 89 mm[Hg] Unive rsity of [facility] Heart rate 2021-09-09 20:06:00 108 /min [facility] Body temperature 2021-09-09 20:06:00 37.22 Ruthann [facility] Respiratory rate 2021-09-09 20:06:00 18 /min [facility] Oxygen saturation in 2021-09-09 20:06:00 99 /min University of Arterial blood by [employer] nicky Pulse oximetry Branch Body weight 2021-09-09 20:05:00 81.647 kg Universi ty [facility] [place] [facility] BMI 2021-09-09 20:05:00 32.40 kg/m2 Universi ty [facility] [place] [facility] Systolic blood 2020-09-30 14:00:00 126 mm[Hg] Univer sity of pressure [place] [facility] Diastolic blood 2020-09-30 14:00:00 84 mm[Hg] Unive rsity of pressure [place] [facility] Heart rate 2020-09-30 14:00:00 79 /min Universi ty of [place] [facility] Oxygen saturation in 2020-09-30 14:00:00 98 /min University of Arterial blood by [facility] nicky Pulse oximetry Branch Body temperature 2020-09-30 13:26:00 37.22 Ruthann Univ ersity of [place] [facility] Respiratory rate 2020-09-30 13:26:00 16 /min Univ ersity of [place] [facility] Body weight 2020-09-30 13:26:00 72.576 kg [facility]i ty [facility] [place] [facility] BMI 2020-09-30 13:26:00 28.80 kg/m2 [facility]i ty [facility] [place] [facility] Systolic blood 2020-09-30 14:00:00 126 mm[Hg] Univer sity of pressure [place] [facility] Diastolic blood 2020-09-30 14:00:00 84 mm[Hg] Unive rsity of pressure [place] [facility] Heart rate 2020-09-30 14:00:00 79 /min Universi ty [facility] [place] [facility] Oxygen saturation in 2020-09-30 14:00:00 98 /min University of Arterial blood by [facility] nicky Pulse oximetry Branch Body temperature 2020-09-30 13:26:00 37.22 Ruthann Univ ersity of [place] [facility] Respiratory rate 2020-09-30 13:26:00 16 /min Univ ersity of [place] [facility] Body weight 2020-09-30 13:26:00 72.576 kg [facility]i ty [facility] [place] [facility] BMI 2020-09-30 13:26:00 28.80 kg/m2 [facility] [place] [facility] Temperature Oral (F) 2019-01-28 01:16:00 98.6 F Memorial Yonis Systolic (mm Hg) 2019-01-28 01:16:00 Estrada rial [place] Diastolic (mm Hg) 2019-01-28 01:16:00 Mem orial [place] Heart Rate 2019-01-28 01:16:00 [facility] [place] Respitory Rate 2019-01-28 01:16:00 Memori al [place] Systolic (mm Hg) 2019-01-27 20:42:00 Estrada rial Yonis Diastolic (mm Hg) 2019-01-27 20:42:00 Mem orial [place] Heart Rate 2019-01-27 20:42:00 [facility] [place] Respitory Rate 2019-01-27 20:42:00 Memori al [place] Temperature Oral (F) 2019-01-27 20:42:00 98.5 F Memorial [place] Systolic (mm Hg) 2019-01-27 17:00:00 Estrada rial Yonis Diastolic (mm Hg) 2019-01-27 17:00:00 Mem orial Yonis Temperature Oral (F) 2019-01-27 17:00:00 98.5 F Memorial [place] Heart Rate 2019-01-27 17:00:00 [facility] [place] Respitory Rate 2019-01-27 17:00:00 [facility] Height 2019-01-22 14:35:00 157.48 cm [facility] BMI Calculated 2019-01-22 14:35:00 [facility] Weight 2019-01-22 14:35:00 [facility] [place] Weight 2019-01-22 04:34:00 [facility] Procedure Date / Time Performing Clinician Source Performed URINALYSIS 2021-09-10 06:03:00 Neena Rogers [facility] URINE DRUG (IMMUNOASSAY) 2021-09-10 06:03:[address] [facility] n[place] SCREEN W/O REFLEX XR CHEST 1 VW 2021-09-10 04:57:30 Neena Rogers [facility] CREATINE KINASE 2021-09-10 04:39:00 Neena Rogers [facility] MAGNESIUM 2021-09-10 04:39:00 Neena Rogers [facility] TROPONIN I 2021-09-10 04:39:00 Neena Rogers [facility] COMP. METABOLIC PANEL 2021-09-10 04:39:[address] [facility] ([id number]) Medical [place] CBC WITH DIFF 2021-09-10 04:39:00 Nenea Rogers [facility] PROTHROMBIN TIME / INR 2021-09-10 04:39:00 [facility] ACTIVATED PARTIAL 2021-09-10 04:39:00 Neena Rogers [facility] THRMPLAS [facility] N-TERMINAL PRO-BNP 2021-09-10 04:39:00 Neena Rogers [facility] COVID-19 (ID NOW RAPID 2021-09-10 04:39:00 [facility] TESTING) Medical Branch TROPONIN I 2021-09-09 21:49:00 [facility] COMP. METABOLIC PANEL 2021-09-09 21:49:00 [facility] Luanne [facility] ([id number]) Medical Branch LITHIUM 2021-09-09 21:49:00 [facility] CBC WITH DIFF 2021-09-09 21:49:00 [facility] CONSENT/REFUSAL FOR 2021-09-09 19:51:22 Doctor Unassigned, No Un [facility] DIAGNOSIS AND TREATMENT Name [facility] Branch URINALYSIS 2020-09-30 13:27:00 [place], [facility] [place] [facility] ADC,CLC OR LCC ONLY - 2020-09-30 13:27:[address] [facility] INFLUENZA A & B DIRECT Medical B ranch ANTIGEN COVID-19 (ID NOW RAPID 2020-09-30 13:27:00 [place] Chuy [facility] TESTING) Medical Branch Encounters Start End Encounter Admission Attending Care Care Encounter Source Date/Time Date/Time Type Type Clinicians Facility Department ID 2019-01-22 Inpatient E [facility] MED [id number] [facility] W 04:39:00 2021-09-09 2021-09-10 Emergency DENIA Rogers [id number] Univers 22:20:00 03:02:00 Neena JIMENEZ [id number] i ty of [place] 4.2.7.2.686 [facility] [id number] [facility] nicky 084 Branch 2021-09-09 2021-09-10 Emergency X DENIA ROGERS ERT [id number] Univers 22:20:00 03:02:00 NEENA tubbs [facility] [place] 2021-09-09 2021-09-10 Emergency X SANCHEZ [facility] ERT [id number] Univers 22:20:00 03:02:00 NEENA tubbs [facility] [place] 2021-09-09 2021-09-09 Emergency Jluia [facility] [id number] Univers 14:07:00 17:35:00 Luanne JIMENEZ [id number] i ty of [place] 4.2.7.2.686 [facility] [id number] [address] 2021-09-09 2021-09-09 Orders Doctor BELKYS [id number] Univers 00:00:00 00:00:00 Only Unassigned, LANA 350.1.13.10 ity of [place] [facility] 4.2.7.2.686 [facility] [id number] [address] 2020-09-30 2020-09-30 [facility] [id number] 07:22:00 08:18:00 Chuy Jimenez [id number] [place] 4.2.7.2.686 [place] [id number] [facility] 2020-09-30 2020-09-30 Emergency [facility] [id number] Univers 07:22:00 08:18:00 hCuy Jimenez 350.1.13.10 i ty of [place] 4.2.7.2.686 [facility] [id number] [address] 2020-09-30 2020-09-30 Emergency X [facility] ERT [id number] Univers 07:22:00 07:22:00 CHUY tubbs [facility] [place] 2020-04-05 2020-04-05 Outpatient Humaira-Mbayo VFP P [address] [place] [address] 05:44:00 05:44:00 _A_AH [id number] Family Practic e 2020-04-05 2020-04-05 Outpatient Humaira-Mbayo VFP VFP [id number] 05:44:00 05:44:00 _A_AH 44813 Family Practic e 2020-04-05 2020-04-05 Outpatient Humaira-Alekso VFP VFP [id number] [id number] [facility] 05:44:00 05:44:00 _A_AH 20979 Family Practic e 2020-04-05 2020-04-05 Outpatient Humaira-Alekso VFP VFP [id number] [id number] [facility] 05:44:00 05:44:00 _A_AH [id number] Family Practic e 2020-03-04 2020-03-14 Inpatient 3 Ronni Eldridge [facility] PSY [id number] 15:38:00 15:25:00 Chente [facility] 2019-12-13 2019-12-13 Outpatient Humaira-Alekso VFP VFP 79[facility] 07:22:00 07:22:00 _A_ [id number] Family Practic e 2019-01-22 2019-01-28 Inpatient [facility] [id number] Memoria 04:33:00 04:40:00 martin Somers 00 l [facility] 2018-02-21 2018-02-20 [id number] [facility] 14:48:00 13:18:00 [facility] Results Test Description Test Time Test Comments Results Result Comments Source TROPONIN I 2021-09-10 05:26:53 Test Item Value Reference Range Interpretation Comme nts TROPONIN I (test code = 0.003 ng/mL See_Comment [Au tomated message] The 1151386179) system which ge nerated this result tra [...] biotin. Lab Interpretation Normal (test code = 98451-9) [place] [facility] [id number] 05:24:16 Test Item Value Reference Range Interpretation Comments NT-proBNP (test code 35 pg/mL See_Comment [Autom ated = 2641567466) message] The system which generated this result transmitted reference range : <=125. The reference range was not used to interpret this result as normal/abnormal . PERRY (test code = PERRY) Biotin has been reported to cause a negative bias, interpret results relative to patient's use of biotin. Lab Interpretation Normal (test code = 05501-0) [place] [facility]2021-11-17 05:16:51 Test Item Value Reference Range Interpretation Comments MAGNESIUM (test code = 3993147426) 1.8 mg/dL 1.7-2.4 Lab Interpretation (test code = Normal 72165-8) [place] [facility] METABOLIC PANEL ([id number])2021-09-10 05:16:31 Test Item Value Reference Range Interpretation Comments NA (test code = 139 mmol/L 135-145 1403755205) K (test code = 4.0 mmol/L 3.5-5.0 0615354645) CL (test code = 108 mmol/L 98-108 6155584913) CO2 TOTAL (test code 25 mmol/L 23-31 = 9719200512) AGAP (test code = 2-16 6530131762) BUN (test code = 14 mg/dL 7-23 9308448134) GLUCOSE (test code = 88 mg/dL 70-110 3870471650) CREATININE (test code 0.89 mg/dL 0.50-1.04 = 8386853767) TOTAL BILI (test code 0.5 mg/dL 0.1-1.1 = 7392596330) CALCIUM (test code = 10.3 mg/dL 8.6-10.6 9824007253) T PROTEIN (test code 6.9 g/dL 6.3-8.2 = 2007557820) ALBUMIN (test code = 4.3 g/dL 3.5-5.0 9593194233) ALK PHOS (test code = 72 U/L 34-122 4267434702) ALTv (test code = 17 U/L 35 1742-6) AST(SGOT) (test code 29 U/L 13-40 = 0664712401) eGFR (test code = mL/min/1.73m2 6859554876) PERRY (test code = PERRY) Association of [...] or abnormalities in imaging tests). [place] [facility] Hospital[facility] [id number] 05:16:16 Test Item Value Reference Range Interpretation Comments CK (test code = 0078330982) 267 U/L 33-194 H Lab Interpretation (test code = Abnormal 45623-9) [place] [facility] HospitalACTIVATED PARTIAL THRMPLAS [id number] 05:05:32 Test Item Value Reference Range Interpretation [...] seconds. Lab Interpretation Normal (test code = 78018-6) [place] [facility] HospitalPROTHROMBIN TIME / [id number] 05:03:30 Test Item Value Reference Range Interpretation [...] tions. Lab Interpretation (test Normal code = 51947-3) [place] [facility] HospitalCB WITH [id number] 04:57:13 Test Item Value Reference Range Interpretation Comments WBC (test code = See_Comment [Automated 3690-2) message] The sy stem which generated this result transmitted reference range : 4.30 - 11.10 10*3/?L. The reference range was not used to interpret this result as normal/abnormal . RBC (test code = See_Comment [Automated 199-8) message] The sy stem which generated this [...] RDW-SD (test code = 41.2 fL 39.0-49.9 46926-8) RDW-CV (test code = 13.0 % 12.0-15.5 788-0) PLT (test code = See_Comment H [Automated 777-3) message] The sy stem which generated this result transmitted reference range : 166 - 358 10*3/ ?L. The reference r katie was not used to interpret this result as normal/abnormal . MPV (test code = 9.6 fL 9.5-12.9 75829-3) NRBC/100 WBC (test See_Comment [Automat ed code = 7293098719) message] The system which generated this result transmitted reference range : 0.0 - 10.0 /100 WBCs. The refer ence range was not u sed to interpret th is result as normal/abnormal . NRBC x10^3 (test code <0.01 See_Comment [Auto mated = 1435198933) message] The s ystem which generated this result transmitted reference range : 10*3/?L. The reference range was not used to interpret this result as normal/abnormal . GRAN MAT (NEUT) % 61.9 % (test code = 770-8) IMM GRAN % (test code 0.30 % = 5939973311) LYMPH % (test code = 26.0 % 736-9) MONO % (test code = 9.5 % 5905-5) EOS % (test code = 1.6 % 713-8) BASO % (test code = 0.7 % 706-2) GRAN MAT x10^3(ANC) 5.91 10*3/uL 1.88-7.09 (test code = 6868181760) IMM GRAN x10^3 (test 0.03 10*3/uL 0.00-0.06 code = 7247652278) LYMPH x10^3 (test code 2.48 10*3/uL 1.32-3.29 = 731-0) MONO x10^3 (test code 0.91 10*3/uL 0.33-0.92 = 742-7) EOS x10^3 (test code = 0.15 10*3/uL 0.03-0.39 711-2) BASO x10^3 (test code 0.07 10*3/uL 0.01-0.07 = 704-7) Lab Interpretation Abnormal (test code = 41351-3) [facility] HospitalJESSICA [id number] 22:24:55 Test Item Value Reference Interpretation Comments Range TROPONIN I (test 0.002 ng/mL See_Comment [Automated code = 3942120719) message] The system which generated this result [...] biotin. Lab Interpretation Normal (test code = 03562-3) [facility] Hospital[facility]UM2021-11-16 22:24:34 Test Item Value Reference Range Interpretation Comments [place] (test code = <0.2 0.6-1.2 L 4882617462) PERRY (test code = PERRY) Toxic Range: ? Greater than 1.2 mmol/L Lab Interpretation (test Abnormal code = 08241-9) [facility] HospitalCOM. METABOLIC PANEL ([id number])2021-09-09 22:13:54 Test Item Value Reference Range Interpretation Comments NA (test code = 139 mmol/L 135-145 4731918605) K (test code = 4.0 mmol/L 3.5-5.0 1038659497) CL (test code = 105 mmol/L 98-108 5321191543) CO2 TOTAL (test code 26 mmol/L 23-31 = 4277895513) AGAP (test code = 2-16 3480793167) BUN (test code = 11 mg/dL 7-23 8729518543) GLUCOSE (test code = 109 mg/dL 70-110 0074775763) CREATININE (test code 0.71 mg/dL 0.50-1.04 = 9529341276) TOTAL BILI (test code 0.6 mg/dL 0.1-1.1 = 5675217206) CALCIUM (test code = 10.4 mg/dL 8.6-10.6 1947889588) T PROTEIN (test code 7.6 g/dL 6.3-8.2 = 7171694861) ALBUMIN (test code = 4.7 g/dL 3.5-5.0 7376727689) ALK PHOS (test code = 78 U/L 34-122 3085146197) ALTv (test code = 19 U/L 5-35 1742-6) AST(SGOT) (test code 28 U/L 13-40 = 1904700259) eGFR (test code = mL/min/1.73m2 5899249011) PERRY (test code = PERRY) Association of [...] or urine or abnormalities in imaging tests). [facility] WITH SOXT0125-63-06 22:03:32 Test Item Value Reference Range Interpretation Comments WBC (test code = See_Comment [Automated 2090-2) message] The sy stem which generated this [...] RDW-SD (test code = 40.2 fL 39.0-49.9 07943-8) RDW-CV (test code = 12.9 % 12.0-15.5 788-0) PLT (test code = See_Comment H [Automated 777-3) message] The sy stem which generated this result transmitted reference range : 166 - 358 10*3/ ?L. The reference r katie was not used to interpret this result as normal/abnormal . MPV (test code = 9.4 fL 9.5-12.9 L 26349-1) NRBC/100 WBC (test See_Comment [Automat ed code = 3053829094) message] The system which generated this result transmitted reference range : 0.0 - 10.0 /100 WBCs. The refer ence range was not u sed to interpret th is result as normal/abnormal . NRBC x10^3 (test code <0.01 See_Comment [Auto mated = 0034151742) message] The s ystem which generated this result transmitted reference range : 10*3/?L. The reference range was not used to interpret this result as normal/abnormal . GRAN MAT (NEUT) % 67.1 % (test code = 770-8) IMM GRAN % (test code 1.00 % = 5940281131) LYMPH % (test code = 21.4 % 736-9) MONO % (test code = 7.9 % 5905-5) EOS % (test code = 1.8 % 713-8) BASO % (test code = 0.8 % 706-2) GRAN MAT x10^3(ANC) 7.35 10*3/uL 1.88-7.09 H (test code = 5956429548) IMM GRAN x10^3 (test 0.11 10*3/uL 0.00-0.06 H code = 0217691492) LYMPH x10^3 (test code 2.34 10*3/uL 1.32-3.29 = 731-0) MONO x10^3 (test code 0.86 10*3/uL 0.33-0.92 = 742-7) EOS x10^3 (test code = 0.20 10*3/uL 0.03-0.39 711-2) BASO x10^3 (test code 0.09 10*3/uL 0.01-0.07 H = 704-7) Lab Interpretation Abnormal (test code = 79533-6) [facility] - INFLUENZA A & B DIRECT QTFKBAW9379-38-72 14:04:00 Test Item Value Reference Range Interpretation Comments Influenza A (test code = 70291-3) Negative Negative Influenza B (test code = 31096-5) Negative Negative Lab Interpretation (test code = Normal 83558-8) [facility] (ID NOW RAPID TESTING)2020-09-30 14:03:00 Test Item Value Reference Range Interpretation Comments SARS-CoV-2 Rapid ID NOW Not Detected Not Detected (test code = 95504-4) PERRY (test code = PERRY) ID NOW COVID-19 Assay is an isothermal nucleic acid amplification test intended for the qualitative detection of nucleic acid from SARS-CoV-2 viral RNA in nasopharyngeal (OUTSOLE CUTTER MACHINE) specimens. It is used under Emergency Use [...] indicated. Lab Interpretation Normal (test code = 05101-0) [facility]IS2020-[facility]-07 13:55:00 Test Item Value Reference Range Interpretation Comments APPEARANCE (test code = Hazy Clear A 1258322862) COLOR (test code = Yellow Yellow 5029185050) PH (test code = 4.8-8.0 5641546241) SP GRAVITY (test code = 1.003-1.030 9984010373) GLU U QUAL (test code = Normal Normal 2900321105) BLOOD (test code = Negative Negative 7206945646) KETONES (test code = 5 mg/dL Negative A 2014359017) PROTEIN (test code = Negative Negative 2887-8) UROBILIN (test code = 2.0 mg/dL Normal A 8214689294) BILIRUBIN (test code = Negative Negative 8961677840) NITRITE (test code = Negative Negative 1448390460) LEUK ROZINA (test code = 25/uL Negative A 8141919181) RBC/HPF (test code = See_Comment [Autom ated message] 2972541687) The system [email or web address] generated this result transmit ngozi reference range : 0 - 3 HPF. The refe rence range was not u sed to interpret th is result as normal/abnormal . WBC/HPF (test code = See_Comment [Autom ated message] 9679615674) The system [email or web address] generated this result transmit ngozi reference range : 0 - 5 HPF. The refe rence range was not u sed to interpret th is result as normal/abnormal . BACTERIA (test code = Few Negative A 1428872390) MUCOUS (test code = Slight Negative LPF A 6725930961) SQ EPITH (test code = HPF 5677160533) Lab Interpretation (test Abnormal code = 05757-0) [facility] HospitalRPR Guwagezsplw8067-85-08 16:42:24 Test Item Value Reference Range Interpretation [...] = 10-24-2020 N Expiration Dt) Thyroid Stimulating Ttpljmt9537-44-82 08:35:16 Test Item Value Reference Range Interpretation Comments TSH (test code = TSH) 1.170 mIU/mL 0.270-4.200 Lipid Tyvgy5067-55-13 08:21:19 Test Item Value Reference Range Interpretation Comments Cholesterol Total 254 mg/dL 0-200 H RISK OF HE ART (test code = DISEASEPublishe d by Cholesterol Total) [place] [employer] Cathie lyte Optimal Borderl ine [...] calculation is LDL/HDL Ratio=L DL Calc/HDL Chol PLIMWTQLCQHL5834-62-01 08:24:008.6[facility] AzbrcweOZKZPFTDYKCT3358-53-30 08:24:84027Imljqhdq QsxhoguUZLNSINWYBPI4602-25-47 08:24:0027[facility] AHKYBXNPBTXF1515-74-71 08:24:46372Mlhhlepb HhjybdqWWACTARGKOUO5327-24-33 08:24:003.6[facility] QdrsipyQJVIQZXJIPZP9779-25-78 08:24:000.70[facility] NABIMHMGGMGW5077-52-30 08:24:008.4[facility] WogjvseKPJVHEOZSTCN4733-47-29 08:24:40990Leyntnzp CvkqubuDICNECWXXMTP5771-79-95 08:24:0086[facility] LOTYMYWOTOUC2332-00-82 08:24:006[facility] HdwnfqaPPUWROAURQ0884-43-47 08:24:00 11.6[facility] SfcfacaHDRIAETVTR7809-52-12 08:24:003.78[facility]annHEMATOLOGY 2019-01-26 08:24:0013.3[facility] XnrimhoUOTMGCJATA7652-51-89 08:24:0034.0[facility] XlnjjxdTAHZINOMBP0845-64-89 08:24:006.3[facility] GescqiyKACKSXYIFC2986-41-12 08:24:00 Test Item Value Reference Range Interpretation Comments MCH (test code = MCH) 30.7 pg 27.0-31.0 [facility] WptdfnrOUILWLQFUV7560-84-85 08:24:0090.3[facility]annHEMATOLOGY 2019-01-26 08:24:0034.2[facility] EzjgvnhLHPALCCURW3679-57-67 08:24:66561Ihfmphfp EwascyeZCYLUBEVUI3325-99-59 08:24:007.5[facility] SjvxzghQKIMJGSGGJUF5668-12-48 08:24:008.6[facility] JgrlfviODUUMBKANPWN4850-53-91 08:24:48626Vyflbdno [facility] CMPVYCWJPSNP9087-12-06 08:24:0027[facility] XpdszxsKLZLACXOTNOA0124-57-05 08:24:00 139[facility] ZmbwzadHKBNMSNDKYIZ3879-42-57 08:24:003.6[facility] PWBBTBVJRFAR6426-46-63 08:24:000.70[facility] LskzlqzPUEBCQJVSVRQ0956-06-89 08:24:008.4[facility] IwebqmqZGFUTIDKAIXK5402-18-71 08:24:26851Xwnjlxel [facility] MVIHXYUEZZTW7405-09-65 08:24:0086[facility] FxjozniAFJSXHLZQNKZ7909-25-58 08:24:00 6[facility] SpupxihPUCLSUALMN9315-09-61 08:24:0011.6[facility]annHEMATOLOGY 2019-01-26 08:24:003.78[facility] RdzfqfvWJENQLJEPX2912-61-05 08:24:0013.3[facility] XrhkersYVFRAHQEDR6904-50-45 08:24:0034.0[facility] GxndjluICJZRSZCKN4799-69-37 08:24:006.3[facility] PyjhavpZISZJEXCCZ0097-20-92 08:24:00 Test Item Value Reference Range Interpretation Comments MCH (test code = MCH) 30.7 pg 27.0-31.0 [facility] ZnpeghqSTLRLWMUBA5955-15-28 08:24:0090.3[facility]annHEMATOLOGY 2019-01-26 08:24:0034.2[facility] QolpeusFGJIHXCFDN4508-82-05 08:24:75459Ydghidrx UxoyivkNVQMPIKPGS9940-88-48 08:24:007.5[facility] HermannCHEM HZTFO9472-63-97 09:14:02044Wkexqpqg HermannCHEM BMOAY8522-91-53 09:14:008.5[facility]annCHEM SRLBO4647-87-55 09:14:0013.3[facility]annCHEM IXNJP9834-70-18 09:14:0024 [facility]annCHEM VCCKK1114-11-70 09:14:95746Griihwob HermannCHEM PANEL 2019-01-25 09:14:0081[facility]annCHEM KUFXP0592-89-13 09:14:002[facility]annCHEM OFWOZ1380-25-09 09:14:003.3[facility]annCHEM ENSRT2104-06-15 09:14:000.60[facility]annCHEM MYVEU4742-98-64 09:14:78077Epeesqzl HermannCHEM YHLDR1991-75-69 09:14:48854Jzzldwef HermannCHEM VLHTL2269-39-23 09:14:008.5 [facility]annCHE[facility] OJSRS5097-16-11 09:14:0013.3[facility]annCHEM PANEL 2019-01-25 09:14:0024[facility]annCHEM VQSOH2378-39-90 09:14:38127Ecupqucr HermannCHEM RGROB0229-15-07 09:14:0081[facility]annCHEM ODPYR5116-71-27 09:14:002[facility]annCHEM QUJZO3944-57-96 09:14:003.3[facility]annCHEM WVWOJ1176-06-08 09:14:000.60[facility]annCHEM LMBZK0948-01-87 09:14:37320 [facility]annMOLECULAR PJFRJNGPJR0007-95-75 16:22:00Negative (01/23/19 11:22 AM)[facility]annMOLECULAR HXARLIKQNU7874-19-19 16:22:00Negative (01/23/19 11:22 AM)[facility]annCHEM KNFGB1780-87-76 15:42:002.76[facility]annCHEM PANEL 2019-01-23 15:42:002.76[facility]annCHEM RXZCV6911-90-39 12:32:000.9[facility]annCHEM MUYLH7586-82-67 12:32:000.9[facility]annCHEM MWUXR8964-85-15 10:50:002.0[facility]annCHEM ASUZM2643-08-23 10:50:53771Tsjzfjcs HermannCHEM HFBAX7279-22-45 10:50:0023[facility]annCHEM DYZFR6791-58-09 10:50:07011 [facility]annCHEM OYHXJ1058-72-59 10:50:003.1[facility]annCHEM PANEL 2019-01-23 10:50:23084Cjgdmvit HermannCHEM MSPJD8916-09-36 10:50:005[facility]annCHEM AEYWD7294-04-53 10:50:000.50[facility]annCHEM UWGPD0329-46-18 10:50:007.8[facility]annCHEM UKPYJ1525-92-14 10:50:0083[facility]annCHEM MHBOZ2504-35-42 10:50:0010.1[facility] GunkrvtFTCTNRNKGC8428-62-88 10:50:000.2 [facility] BktyrfmUHEWDUCSOZ3507-69-90 10:50:000.8[facility] HermannHEMATOLOGY 2019-01-23 10:50:005.5[facility] LzeobewSJPBQKFIYE0131-24-95 10:50:002.2[facility] SictygiNRSRJJCRDO0206-46-12 10:50:000.1[facility] DntlptbWDAXWQIZIO2342-98-40 10:50:0063.6[facility] XxdideyJAAYXPCEUU5950-40-89 10:50:008.9[facility] ADUCOHQCPU3936-08-34 10:50:002.3[facility] TsuoadbJVOAZCRPBG2588-88-09 10:50:00 Normal (01/23/19 5:50 AM)[facility] WzwsyxwZXUHXGHNUF7052-01-76 10:50:00Normal (01/23/19 5:50 AM)[facility] IzjmzkvXYANXPHGWJ2045-28-97 10:50:0025.1[facility] LfwlknyFQOVOMDRAX8375-80-94 10:50:0013.1[facility] YwehejtDPROBAOMYN7039-41-65 10:50:16535Ogvgydrf RbpzkdfRCMRVPYPDR3216-33-44 10:50:007.7[facility] GBOVDIBKZM4594-69-93 10:50:008.6[facility] LdpymdfFKGVWKASVY0854-55-68 10:50:00 10.0[facility] XorlbnfMFFJIWJBGA3498-26-77 10:50:0034.6[facility] HermannHEMATOLOGY 2019-01-23 10:50:0028.7[facility] WgkszijKPUALKVVZG7320-66-86 10:50:0087.8[facility] GaozqdcBSJFOEPKKL1548-38-85 10:50:00 Test Item Value Reference Range Interpretation Comments MCH (test code = MCH) 30.4 pg 27.0-31.0 [facility] TycyrkyJVJEAWDMPV8163-57-31 10:50:003.27[facility]annHEMATOLOGY 2019-01-23 10:50:13301Sjxnystg VneznglLGPUROZMWY2809-61-25 10:50:007.7[facility] OtpkqgtJPHXQUINTI4621-73-68 10:50:008.6[facility] VtibxtmNJXQVIBPPH9245-13-44 10:50:0010.0[facility] CyzzkpbSGAGDIHXKA3190-75-68 10:50:0034.6[facility] FIWHGLEZYK6543-28-75 10:50:0028.7[facility] RwvlajgJDGNOLCHEA9493-28-21 10:50:00 87.8[facility] VzopuyfHXBGRBAEMA1379-68-35 10:50:00 Test Item Value Reference Range Interpretation Comments MCH (test code = MCH) 30.4 pg 27.0-31.0 [facility] DtdkincKEXXNLQHFW7378-82-58 10:50:003.27[facility] HermannCHEM PANEL 2019-01-23 10:50:002.0[facility] HermannCHEM RMUAW5465-78-25 10:50:16752Htlbflkb HermannCHEM ZKLJD6503-69-12 10:50:0023[facility]annCHEM QLFKJ2268-57-84 10:50:35050Odclgvyg HermannCHEM DRACZ8601-52-17 10:50:003.1[facility]annCHEM LVKGE3187-99-71 10:50:88034Mhdvokgi HermannCHEM PIYVG9293-43-28 10:50:005 [facility]annCHEM IWTJV2864-90-79 10:50:000.50[facility]annCHEM PANEL 2019-01-23 10:50:007.8[facility]annCHEM QQJRK5731-75-00 10:50:0083[facility]annCHEM LTFQP2047-29-04 10:50:0010.1[facility] HdseinnMXPTHJIBWD3325-36-98 10:50:000.2[facility] HuzqyclTROUHRJHDX9531-11-92 10:50:000.8[facility] QHVXEXZOUJ8499-51-31 10:50:005.5[facility] CmhwcfuURHQQCTBVI4233-56-63 10:50:002.2 [facility] DmxmdaoQZBKIZQINX0909-60-63 10:50:000.1[facility]annHEMATOLOGY 2019-01-23 10:50:0063.6[facility] LcowyizWZDCPYCXEP0006-47-76 10:50:008.9[facility] WpyfrjnYYIJUGQAKQ6571-00-47 10:50:002.3[facility] DedtvyqJSICKLOCPB1708-52-85 10:50:00Normal (01/23/19 5:50 AM)[facility] VggifqtFMRNAPNKQU2331-63-61 10:50:00 Normal (01/23/19 5:50 AM)[facility] BqbymbsFYECPWBUHP5315-65-88 10:50:0025.1[facility] OjvncjpYIPVHGCHSB8134-98-24 10:50:0013.1[facility] HermannCHEM AIHUW2082-44-44 11:32:002.4[facility]annCHEM CNWMS8010-48-41 11:32:002.4[facility] HermannCHEM IFQNH7274-40-75 09:04:003.0[facility]annCHEM LSFXQ9682-67-94 09:04:003.0 [facility]UR[facility] AND TZHWK2104-98-10 07:14:00 Test Item Value Reference Range Interpretation Comments UA Spec Grav (test code = UA Spec 1.014 1 Grav) [facility] HOSRZ2766-60-38 07:14:00 Test Item Value Reference Range Interpretation Comments UA pH (test code = UA pH) 6.0 1 5.0-8.0 [facility] AFKXF8828-25-30 07:14:00Negative (01/22/19 2:14 AM) [facility] HUWXI5009-94-06 07:14:00Negative *NA*(01/22/19 2:14 AM) [facility] JSJWV3027-22-41 07:14:00Negative *NA*(01/22/19 2:14 AM) [facility] IYVLE9641-17-07 07:14:00Negative *NA*(01/22/19 2:14 AM) [facility] ZLGTZ4781-16-18 07:14:00Negative (01/22/19 2:14 AM) [facility] GFENH9199-17-64 07:14:00Negative (01/22/19 2:14 AM) [facility] SUQZS6443-25-27 07:14:00Negative (01/22/19 2:14 AM) [facility] ONREG1176-37-54 07:14:00<1[facility] QLBGS5678-87-75 07:14:0025[facility] EZHAN0097-66-04 07:14:002 [facility] IZWXE3565-30-62 07:14:00Light Yellow *NA*(01/22/19 2:14 AM)[facility] JZUVN4259-78-11 07:14:00Clear (01/22/19 2:14 AM) [facility] DCYBY8766-25-64 07:14:00 Test Item Value Reference Range Interpretation Comments UA Spec Grav (test code = UA Spec 1.014 1 Grav) [facility] QETNH2620-28-79 07:14:00 Test Item Value Reference Range Interpretation Comments UA pH (test code = UA pH) 6.0 1 5.0-8.0 [facility] MHFMK6240-77-06 07:14:00Negative (01/22/19 2:14 AM) [facility] JWAIV7578-98-63 07:14:00Negative *NA*(01/22/19 2:14 AM) [facility] BQTWT3190-05-82 07:14:00Negative *NA*(01/22/19 2:14 AM) [facility] TBQHG8184-59-02 07:14:00Negative *NA*(01/22/19 2:14 AM) [facility] LZYLZ1130-87-63 07:14:00Negative (01/22/19 2:14 AM) [facility] CLQMB1221-07-49 07:14:00Negative (01/22/19 2:14 AM) [facility] SKAIP1173-38-90 07:14:00Negative (01/22/19 2:14 AM) [facility] CRCPO3675-75-83 07:14:00<1[facility] SFUVG8668-46-14 07:14:0025[facility] HDRCL5427-29-74 07:14:002 [facility] NYADF6752-78-64 07:14:00Light Yellow *NA*(01/22/19 2:14 AM)[facility] TNMTL7582-88-70 07:14:00Clear (01/22/19 2:14 AM) [facility] GvmncetUWWVK8046-45-36 05:16:000.90[facility] XmhassvXXBGR5263-51-88 05:16:000.90[facility] XdbiyztPVVBSLXESR8817-40-46 05:01:000.1[facility] ENILSGRUUI6106-88-75 05:01:000.7[facility] JhmtwbaNDTKYSKXHY1535-33-81 05:01:000.0 [facility] RyuisigKSJTTYAXLK0960-94-82 05:01:000.0[facility]annHEMATOLOGY 2019-01-22 05:01:000.9[facility] GrtxuuiNBDCUQHYEE8350-68-75 05:01:008.6[facility] ShxvfysIPZIYFZBNP1672-81-56 05:01:000.6[facility] GtiamqwCYHOCIAFCQ1599-87-95 05:01:0086.5[facility] MdypxzcRENCEKZZFH2518-02-90 05:01:005.7[facility] PQGXELOFIH0916-00-26 05:01:006.9[facility] FwirrvgNOUVAFNXEO9504-87-02 05:01:009.9 [facility] ExzkoqjMLGLXLURKX9201-98-27 05:01:0032.8[facility]annHEMATOLOGY 2019-01-22 05:01:0013.6[facility] VibpqavMZSXEIMYJV4889-86-29 05:01:47374Czhyuslb PgnuyajFTBBWWJSQC1123-08-34 05:01:007.3[facility] GgcuiueCMRBWYTPXO7533-60-52 05:01:0014.0[facility] CqlzbmeNHUEXNPTDT8766-90-98 05:01:004.85[facility] KTVPGCOVTC7697-89-97 05:01:0042.7[facility] WnkrxsvMKPKMGRBVB4703-10-15 05:01:00 Test Item Value Reference Range Interpretation Comments MCH (test code = MCH) 29.0 pg 27.0-31.0 [facility] KwxocdvBRVFKCHLKW3291-78-93 05:01:0088.2[facility]annHEMATOLOGY 2019-01-22 05:01:00 Test Item Value Reference Range Interpretation Comments INR (test code = INR) 0.96 1 0.85-1.17 [facility]zQFIYENXSET2137-62-02 05:01:00 Test Item Value Reference Range Interpretation Comments PT (test code = PT) 12.6 s 12.0-14.7 [facility] CenterLucjwkoYBILVHEZZI8057-63-39 05:01:00 Test Item Value Reference Range Interpretation Comments PTT (test code = PTT) 25.9 s 22.9-35.8 [facility]annBL[facility] B[facility] UUDUHQM6753-38-63 05:01:00Negative (01/22/19 12:01 AM) [facility]annCARDIAC YSIZHLF4713-40-68 05:01:00<0.02[facility] CARDIAC UDZDWFK9940-13-10 05:01:0049[facility]annCHEM NRHVZ4087-23-44 05:01:000.6[facility]annCHEM KQYLQ2315-81-87 05:01:40242Xyvxljie HermannCHEM PRFNN8554-66-42 05:01:004.0[facility]annCHEM PZRMC3761-70-05 05:01:0017 [facility]annCHEM TFBRE1033-63-78 05:01:0025[facility]annCHEM PANEL 2019-01-22 05:01:008.1[facility]annCHEM GMCCK6533-25-39 05:01:00 Test Item Value Reference Range Interpretation Comments B/C Ratio (test code = B/C Ratio) 20 1 6-25 [facility]annCHE[facility] PKQIV5746-83-15 05:01:00 Test Item Value Reference Range Interpretation Comments A/G Ratio (test code = A/G Ratio) 1.0 1 0.7-1.6 [facility]annCHE[facility] DWFQO0902-38-19 05:01:004.1[facility]annCHEM PANEL 2019-01-22 05:01:006.90[facility] PlpgtljHMRUCVKBPENHG1067-78-72 05:01:00Negative *NA*(01/22/19 12:01 AM)[facility] LujpuggPREKWIHBLP6613-81-26 05:01:000.1[facility] KlgsxjpPCPJSDULLF9328-35-61 05:01:000.7[facility] BjhnmsyQGQTXGNIAY8781-60-97 05:01:000.0[facility] GzjbquuOFGKVENHRH2815-84-44 05:01:000.0[facility] USZKGJKIKN0450-52-60 05:01:000.9[facility] UbdppqxONJNZHLCCC4252-97-07 05:01:008.6 [facility] RtrpobxCWFEONJLXY3662-06-36 05:01:000.6[facility]annHEMATOLOGY 2019-01-22 05:01:0086.5[facility] OcsqkkjIAWUDKNHFF5311-39-84 05:01:005.7[facility] FtnhcbgHFXSJGHZTA8258-50-12 05:01:006.9[facility] GonljjlYWIKEJLFLB9513-17-38 05:01:009.9[facility] FnibymjOQIXEZKOKV2805-37-57 05:01:0032.8[facility] QOMGBQELIV5761-80-03 05:01:0013.6[facility] RmemjpnXBLQKQPQXA2494-89-37 05:01:00 443[facility] GbrcvewZKQYFGPTDK0024-85-52 05:01:007.3[facility]annHEMATOLOGY 2019-01-22 05:01:0014.0[facility] ImxowzlNNBFCOAKCV8188-97-67 05:01:004.85[facility] ZfdxiigPKABFGYKVM2805-77-99 05:01:0042.7[facility] ScbwjdbBHZKFDPAHC4969-65-45 05:01:00 Test Item Value Reference Range Interpretation Comments MCH (test code = MCH) 29.0 pg 27.0-31.0 [facility] MvbrzglNPIEIZOWZZ6329-03-79 05:01:0088.2[facility]annHEMATOLOGY 2019-01-22 05:01:00 Test Item Value Reference Range Interpretation Comments INR (test code = INR) 0.96 1 0.85-1.17 [facility] BfmvgqwRJDZHFNNNT0604-72-85 05:01:00 Test Item Value Reference Range Interpretation Comments PT (test code = PT) 12.6 s 12.0-14.7 [facility] MurcnlhTHARMJWQJY3812-76-15 05:01:00 Test Item Value Reference Range Interpretation Comments PTT (test code = PTT) 25.9 s 22.9-35.8 [facility] QYLGVAV9038-39-49 05:01:00Negative (01/22/19 12:01 AM) [facility] CenterannCARDIAC ZOJQHUI8461-38-24 05:01:00<0.02[facility] CARDIAC WHSPNGD5976-21-18 05:01:0049[facility] HermannCHEM FBQHC4094-82-47 05:01:000.6[facility]annCHEM SHYZT0303-46-41 05:01:50277Vlhdtpzu HermannCHEM OKASO8578-87-76 05:01:004.0[facility]annCHEM NBMLD2301-86-24 05:01:0017 [facility]annCHEM NBGFG8532-36-19 05:01:0025[facility]annCHEM PANEL 2019-01-22 05:01:008.1[facility] HermannCHEM ZPDCA9460-78-71 05:01:00 Test Item Value Reference Range Interpretation Comments B/C Ratio (test code = B/C Ratio) 20 1 6-25 [facility] HermannCHEM POXGO4278-65-14 05:01:00 Test Item Value Reference Range Interpretation Comments A/G Ratio (test code = A/G Ratio) 1.0 1 0.7-1.6 [facility]annCHE[facility] QQKZA3392-05-59 05:01:004.1[facility]annCHEM PANEL 2019-01-22 05:01:006.90[id number] 05:01:00Negative *NA*(01/22/19 12:01 AM)[facility] [id number] 14:36:00 Test Item Value Reference Range Interpretation [...] 0.00-0.01 N code = ETOHU) Comprehensive Metabolic [id number] 14:36:00 Test Item Value Reference Range Interpretation [...] the [employer],http ://nkd ep.nih.gov Urinalysis [id number] 14:32:00 Test Item Value Reference Range Interpretation Comments Color (test code = COLOR) Yellow Yellow,Straw,Pl N yellow Clarity (test code = Clear Clear N CLAR) Specific [place] (test 1.024 1.001-1.035 N code = SPGR) [...] code = Few /HPF BACT) CBC with [id number] 14:21:00 Test Item Value Reference Range Interpretation [...] code = ALYMPH) 3.0 K/cumm 0.5-4.6 N [place] Abs (test code = AMONO) 0.5 K/cumm 0.0-1.2 N Eos Abs (test code = AEOS) 0.19 K/cumm 0.00-0.74 N Baso Abs (test code = ABASO) 0.1 K/cumm 0.00-0.21 N
--- NOTE | 2021-09-29 20:04 | ER ---
Nurse's Notes [facility] Name: Tiffany Quinn Age: 51 yrs Sex: Female : 1970 Arrival Date: 09/29/2021 Time: 19:12 Bed 20 Private MD: Diagnosis: Anxiety disorder, unspecified Presentation: 09/29 19:12 Chief complaint: Patient states: dizziness. Coronavirus screen: Client denies travel da3 out of the [place] in the last 14 days. Coronavirus screen: Vaccine status: Patient reports receiving the 2nd dose of the covid vaccine. Ebola Screen: No symptoms or risks identified at this time. Risk Assessment: Do you want to hurt yourself or someone else? Patient reports no desire to harm self or others. Note Pt was just d?c a hour ago took over the counter meds for N/V and Tylenol. 19:12 Method Of Arrival: EMS: [facility] da3 19:12 Acuity: MANUEL 4 da3 Vital Signs: 19:12 BP 108 / 98; Pulse 111; Resp 20; Temp 98.9; Pulse Ox 100% on R/A; Weight 71.67 kg; da3 Height 5 ft. 3 in. (160.02 cm); 19:12 Body Mass Index 27.99 (71.67 kg, 160.02 cm) da3 ED Course: 19:12 Patient arrived in ED. da3 19:17 Triage completed. da3 19:30 Venkatesh Funez NP is PHCP. pm1 19:30 Goran Bledsoe MD is Attending Physician. pm1 19:46 Niya Huntley, JIGNA is Primary Nurse. 5 Administered Medications: 19:53 Drug: hydrOXYzine 50 mg Route: PO; [facility] Outcome: 20:03 Discharge ordered by . pm1 20:25 Patient left the ED. ld1 Signatures: Venkatesh Funez NP CHILD CARE ASSOCIATE pm1 Radha Paez RN RN ld1 Salinas Quesada RN RN da3 Niya Huntley RN RN [facility]
--- NOTE | 2021-09-29 20:04 | EDPHYS ---
Physician Documentation [facility] Name: Tiffany Quinn Age: 51 yrs Sex: Female : 1970 Arrival Date: 09/29/2021 Time: 19:12 Bed 20 Private MD: ED Physician Goran Bledsoe HPI: 09/29 19:55 This 51 yrs old Female presents to ER via EMS with complaints of Dizziness. pm1 19:55 The patient presents with dizziness. Onset: The symptoms/episode began/occurred today. pm1 Modifying factors: The symptoms are alleviated by nothing, the symptoms are aggravated by nothing. Associated signs and symptoms: Pertinent negatives: abdominal pain, chest pain, nausea, shortness of breath, vomiting. Severity of symptoms: in the emergency department the symptoms are unchanged. The patient has been recently seen at the [facility] Emergency Department, just prior to arrival, for similar complaints at 1830 . 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 Patient reports last smoking methamphetamines 4 days ago. ROS: 19:55 Constitutional: Negative for fever, chills, and weight loss, Cardiovascular: Negative pm1 for chest pain, palpitations, and edema, Respiratory: Negative for shortness of breath, cough, wheezing, and pleuritic chest pain, Abdomen/GI: Negative for abdominal pain, nausea, vomiting, diarrhea, and constipation. 19:55 : Negative for injury, bleeding, discharge, and swelling MS/Extremity: Negative for injury and deformity, Skin: Negative for injury, rash, and discoloration. 19:55 Neuro: Positive for dizziness, Negative for headache, numbness, tingling, weakness. 19:55 All other systems are negative. pm1 Exam: 19:55 Constitutional: This is a well developed, well nourished patient who is awake, alert, pm1 and in no acute distress. Head/Face: Normocephalic, atraumatic. 19:55 Back: No spinal tenderness. No costovertebral tenderness. Full range of motion. Skin: Warm, dry with normal turgor. Normal color with no rashes, no lesions, and no evidence of cellulitis. MS/ Extremity: Pulses equal, no cyanosis. Neurovascular intact. Full, normal range of motion. 19:55 Eyes: Exam is negative for acute changes, Extraocular movements: no acute changes, Conjunctiva: no acute changes, no injection, Sclera: no acute changes, icterus, is not appreciated. 19:55 Cardiovascular: Exam negative for acute changes, Rate: tachycardic, actual rate is 111 bpm, Rhythm: regular, Pulses: no pulse deficits are appreciated, Heart sounds: normal, normal S1and S2, Edema: is not appreciated. 19:55 Respiratory: Exam negative for acute changes, respiratory distress, shortness of breath, Breath sounds: are clear throughout. 19:55 Abdomen/GI: Inspection: obese Palpation: abdomen is soft and non-tender, in all quadrants. 19:55 Neuro: Exam negative for acute changes, Orientation: to person, place, time, Motor: moves all fours, Gait: is steady, at a normal pace, without difficulty. 19:55 Psych: Behavior/mood is cooperative, anxious, Affect is animated, Oriented to person, place, time, Patient has no thoughts/intents to harm self or others. Vital Signs: 19:12 BP 108 / 98; Pulse 111; Resp 20; Temp 98.9; Pulse Ox 100% on R/A; Weight 71.67 kg; da3 Height 5 ft. 3 in. (160.02 cm); 19:12 Body Mass Index 27.99 (71.67 kg, 160.02 cm) da3 MDM: 19:34 Patient medically screened. pm1 19:44 Data reviewed: vital signs. Data interpreted: Pulse oximetry: on room air is 100 %. pm1 Interpretation: normal. 20:02 Counseling: I had a detailed discussion with the patient and/or guardian regarding: the pm1 historical points, exam findings, and any diagnostic results supporting the discharge/admit diagnosis, the need for outpatient follow up, a psychiatrist, Cessation of drug abuse and follow-up at drug rehabilitation center, to return to the emergency department if symptoms worsen or persist or if there are any questions or concerns that arise at home. Administered Medications: 19:53 Drug: hydrOXYzine 50 mg Route: PO; jh5 Disposition: 22:24 Co-signature as Attending Physician, Goran Bledsoe MD. pkl Disposition Summary: 09/29/21 20:03 Discharge Ordered Location: Home pm1 Problem: new pm1 Symptoms: have improved pm1 Condition: Stable pm1 Diagnosis - Anxiety disorder, unspecified pm1 Followup: pm1 - With: Emergency Department - When: As needed - Reason: Worsening of condition Followup: pm1 - With: Private Physician - When: 2 - 3 days - Reason: Recheck today's complaints, Continuance of care, Re-evaluation by your physician Discharge Instructions: - Discharge Summary Sheet pm1 - Generalized Anxiety Disorder, Adult pm1 - Illegal Drug Use Information, Adult pm1 - Managing Anxiety, Adult pm1 Forms: - Medication Reconciliation Form pm1 - Thank You Letter pm1 - Antibiotic Education pm1 - Prescription Opioid Use pm1 Signatures: Goran Bledsoe MD MD pkl Venkatesh Funez, BEZEL CUTTER BEZEL CUTTER pm1 Niya Huntley RN RN jh5
[2021-09-29 20:39] VITALS: BP 108/98; TEMP 98.9; O2SAT 100
== END 2021-09-29 20:25 | disposition home or self-care (01) ==
LOC: ER 19:07
DX: F41.9 Anxiety disorder, unspecified (principal)
CPT/HCPCS: 99283

== ENCOUNTER 2021-10-01 00:10 | Emergency (ER) | payer OTHER ==
--- OUTSIDE RECORDS SUMMARY | 2021-10-01 00:20 | XMS REPORT | Continuity of Care Document ---
:1970 Author Organization [facility] t Address [address] [place] [address] Care Team Providers Name Role Phone UNKNOWN [...] Policy Number Effective Date Expiration Date S [facility] OF [place] - [id number] 2020 [place] 00:00:00 (MEDICARE REPLACEMENT/ADVANT AGE - [...] 00 GASTROENTE RITIS AND COLITIS Active 01/21/2019 [facility] Irregular Irregular Disease Active Uni vers menstrual menstrual 8-15 ity of cycle cycle 00:00: [address] Skin Skin Disease Active Univers lesion lesion 8-15 ity of 00:00: [address] Psychiatri Psychiatri Disease Active U nivers c disorder c disorder 8-15 it y of 00:00: [address] Well woman Well woman Disease Active U nivers exam with exam with 8-15 ity of routine routine 00:00: [place] gynecologi gynecologi 00 Me dical nicky exam nicky exam Branch INFECTIOUS Diagnosis Active 2019-02-06 Memoria GASTROENTE 08:58:00 l RITIS AND Yonis COLITIS, INFECTIOUS GASTROENTE RITIS AND COLITIS, Active [facility] Allergies, Adverse Reactions, Alerts Allergy Allergy Status Severity Reaction(s) Onset Inactive Treating Comm ents Source Name Type Date Date Clinician NO KNOWN Drug Active Univers ALLERGIE Class ity of S [facility] Phenerga Phenerga Active [place] Social History Social Habit Start Date Stop Date Quantity Comments Source History of Cigarette Smoker Universi ty of tobacco use [facility] Tobacco Comment 2-3 cigs a day [facility] Exposure to Not sure [place] of SARS-CoV-2 [facility] (event) [place] Tobacco use and 2016-06-08 2016-06-08 [facility] 00:[facility]:00 [facility] Alcohol intake 2016-06-08 2016-06-08 0 /d University of 00:00:00 00:00:00 [facility] Sex Assigned At [birth year] Universit y of 00:00:00 00:00:00 [facility] Smoking Status Start Date Stop Date Source Social History 2019-01-22 05:00:12 [facility] Her urena Current some day smoker 2016-06-08 00:00:00 [facility] Medications Ordered Filled Start Stop Current Ordering Indication Dosage Frequency Signature Comments Components Source Medication Medication Date Date Medication? Clinician (SIG) Name Name cefTRIAXone 2020-10- No 1000mg 1,000 mg, Univers (ROCEPHIN) 17 11-17 IV ity of 1,000 mg in 08:30: 08:01 [place], [place] NaCl 0.9% 00 :00 ONCE, 1 [...] 09/09/21 at 2330, RANDA amoxicillin 2020-10 Yes [id number] 500mg Take 1 Univers 500 mg 11-10 capsule by ity of capsule 00:00: mouth 3 [place] 00 (three) Medical times Branch daily. ondansetron 2019-10- No 4mg 4 mg, [facility] ers (ZOFRAN-ODT 12-01 Oral, ity of ) 15:15: 14:16 ONCE, 1 [place] disintegrat 00 :00 dose, Mon Med ical ing tablet 09/30/20 at [facility] 4 mg 0915, Routine ondansetron 2019-10- No 4mg 4 mg, [facility] ers (ZOFRAN-ODT 12-01- Oral, ity of ) 14:30: 13:32 ONCE, 1 [place] disintegrat 00 :00 dose, Mon Med ical ing tablet 09/30/20 at [facility] n[facility] 4 mg 0830, Routine ondansetron 2019-10 Yes [id number] 4mg Take 1 Univers 4 mg 2-07 tablet by ity of disintegrat 00:00: mouth [place] ing tablet 00 every 8 Medica l (eight) Branch hours as needed for Nausea and Vomiting (N/V). ondansetron 2019-10 Yes [id number] 4mg Take 1 Univers 4 mg 2-07 tablet by ity of disintegrat 00:00: mouth [place] ing tablet 00 every 8 Medica l (eight) Branch hours as needed for Nausea and Vomiting (N/V). ondansetron 2019-10 Yes [id number] 4mg Take 1 Univers 4 mg 2-07 tablet by ity of disintegrat 00:00: mouth [place] ing tablet 00 every 8 Medica l (eight) Branch hours as needed for Nausea and Vomiting (N/V). ondansetron 2019-10 Yes [id number] 4mg Take 1 Univers 4 mg 2-07 tablet by ity of disintegrat 00:00: mouth [place] ing tablet 00 every 8 Medica l (eight) Branch hours as needed for Nausea and Vomiting (N/V). ciprofloxac 2019 Yes 500 mg = 1 Memoria in 500 mg 4-04 tab, PO, l oral tablet 17:35: [id number], X [place] 00 4 day, # 8 tab, 0 [...] 4-04 tab, PO, l oral tablet 17:35: [id number], X [place] 00 4 day, # 8 tab, 0 Refill(s) Ondansetron 2018- Yes 4 mg = 1 Me moria 4 MG Oral 4-04 tab, PO, l Tablet 17:35: Q6H, PRN [place] [Zofran] 00 Nausea/Vom iting, # 20 tab, [...] moria 01-24 Route: PO, l 14:00: QAM, [place] Dosing Weight 75, kg, Start date: 01/24/19 [...] ia 4- (Same As: l 18:00: KlonoPIN) [place] Flagyl No Notes: Memoria 4- (Same as: l 15:00: Flagyl) Yonis 00 Take with food/ avoid alcohol Cipro No Notes: May Memori a - interfere l 15:00: w/enteral Yonis 00 feedings - Take 1 hr before or 2 hrs after antacids, dairy pdt & minerals. On empty stomach. Flagyl No Notes: Memoria 4- (Same as: l 15:00: Flagyl) [place] 00 Take with food/ avoid alcohol Cipro No Notes: February Memori a 4- interfere l 15:00: w/enteral [place] 00 feedings - Take 1 hr before [...] PO, ONCE, l mEq oral 14:20: 0 [place] tablet, 00 Refill(s) extended release Metronidazo No 500 mg, Mem oria le 500 MG 4-01 PO, l Oral Tablet 14:20: [id number], 0 H [place] [Flagyl] 00 Refill(s) Ciprofloxac No 500 mg, Mem oria in 500 MG 01 PO, l Oral Tablet 14:20: [id number], 0 [place] [Cipro] 00 Refill(s) potassium Yes 40 mEq, Memor ia chloride 20 -01 PO, ONCE, l mEq oral 14:20: 0 [place] tablet, 00 Refill(s) extended release Metronidazo No 500 mg, Mem oria le 500 MG 4-01 PO, l Oral Tablet 14:20: [id number], 0 H ermann [Flagyl] 00 Refill(s) Ciprofloxac No 500 mg, Mem oria in 500 MG 4-01 PO, l Oral Tablet 14:20: [id number], 0 [place] [Cipro] 00 Refill(s) Potassium No Notes: Memori [...] tab, PO, l Tablet 21:08: BID, 0 [place] [Risperdal] 00 Refill(s) Strattera Yes 0.5 mg/kg, [...] tab, PO, l Tablet 21:08: BID, 0 [place] [Risperdal] 00 Refill(s) Zosyn No Notes: Memoria [...] oria 3-31 to exceed l 15:03: 400mg/day. [place] 00 (Same As: Ultram) Tramadol No Notes: [...] 01-22 Route: IM, l 09:47: Drug form: [place] 00 PDR/INJ, PRN, Dosing Weight 75.994, kg, [...] Memoria 3-31 (Same as: l 08:56: Zofran) [place] MEDICATION WASTE Product Size: 4 mg Product [...] moria IV - 1,000 l 05:44: ml/hr, [place] 00 Infuse Over: 1 hr, Route: IV, [...] 0.9% 3-31 Same as: l 04:52: BD [place] Posiflush Sterile NS (Bolus) No 1,000 mL, Me moria IV 3-31 1,000 l 04:51: ml/hr, Yonis 00 Infuse Over: 1 hr, Route: IV, 1,000, Drug form: INJ, ONCE, Priority: STAT, Dosing Weight 75.994 kg, Start date: 01/21/19 23:51:00 CDT, Stop date: 01/21/19 23:51:00 CDT NS (Bolus) No 1,000 mL, Me moria IV 01-22 1,000 l 04:51: ml/hr, [place] 00 Infuse Over: 1 hr, Route: IV, [...] HYDROBROMID 8-15 mouth. ity of E 19:02: [place] (CITALOPRAM 27 Medical ORAL) Branch ibuprofen 2016-0 Yes 200mg Take 200 Uni vers (ADVIL) 200 8-15 mg by ity of mg tablet 14:02: mouth [place] [address] every 6 Medical (six) Branch hours as needed. CLONAZEPAM 2016-0 Yes Take by Uni vers (KLONOPIN 8-15 mouth. ity of ORAL) 14:02: [address] Branch CITALOPRAM 2016-0 Yes Take by Uni vers HYDROBROMID 8-15 mouth. ity of E 14:02: [place] (CITALOPRAM 27 Medical ORAL) Branch ibuprofen 2016-0 Yes 200mg Take 200 Uni vers (ADVIL) 200 8-15 mg by ity of mg tablet 14:02: mouth [place] [address] every 6 Medical (six) Branch hours as needed. CLONAZEPAM 2016-0 Yes Take by Uni vers (KLONOPIN 8-15 mouth. ity of ORAL) 14:02: [address] Branch CITALOPRAM 2016-0 Yes Take by Uni vers HYDROBROMID 8-15 mouth. ity of E 14:02: [place] (CITALOPRAM 27 Medical ORAL) Branch ibuprofen 2016-0 Yes 200mg Take 200 Uni vers (ADVIL) 200 8-15 mg by ity of mg tablet 14:02: mouth [place] [address] every 6 Medical (six) Branch hours as needed. CLONAZEPAM 2016-0 Yes Take by Uni vers (KLONOPIN 8-15 mouth. ity of ORAL) 14:02: [place] [address] Medical Branch CITALOPRAM 2016-0 Yes Take by Uni vers HYDROBROMID 8-15 mouth. ity of E 14:02: [place] (CITALOPRAM 27 Medical ORAL) Branch misoprostol 2016-0 [...] H it y of en-caff 00:00: PRN. [place] (ESGIC) 00 Medical 50-325-40 Branch mg tablet butalbital- 2015-0 Yes TK 1 TO 2 U nivers acetaminoph 8-01 T PO Q 8 H it y of en-caff 00:00: PRN. [place] (ESGIC) 00 Medical 50-325-40 Branch mg tablet butalbital- 2015-0 Yes TK 1 TO 2 U nivers acetaminoph 8-01 T PO Q 8 H it y of en-caff 00:00: PRN. [place] (ESGIC) 00 Medical 50-325-40 Branch mg tablet butalbital- 2016-0 Yes TK 1 TO 2 U nivers acetaminoph 8-01 T PO Q 8 H it y of en-caff 00:00: PRN. [place] (ESGIC) 00 Medical 50-325-40 Branch mg tablet dextroamphe 0 Yes TK 1 T PO U nivers tamine-amph 7-20 BID. ity of etamine 00:00: [place] (ADDERALL) 00 Medical 20 mg Branch tablet dextroamphe Yes TK 1 T PO U nivers tamine-amph 7-20 BID. ity of etamine 00:00: [place] (ADDERALL) 00 Medical 20 mg Branch tablet dextroamphe Yes TK 1 T PO U nivers tamine-amph 7-20 BID. ity of etamine 00:00: [place] (ADDERALL) 00 Medical 20 mg Branch tablet [...] 2021-09-10 08:01:00 138 mm[Hg] Univer sity of [email or web address] Diastolic blood 2021-09-10 08:01:00 97 mm[Hg] Unive rsity of [facility] [[email or web address] Heart rate 2021-09-10 08:01:00 87 /min [facility] Respiratory rate 2021-09-10 08:01:00 20 /min [facility] Oxygen saturation in 2021-09-10 08:01:00 98 /min University of Arterial blood by [place] [employer] [facility] Pulse oximetry Branch Body temperature 2021-09-10 04:28:51 37.17 Ruthann [facility] [place] [facility] Body height 2021-09-10 04:26:00 154.9 cm [facility] Body weight 2021-09-10 04:26:00 81.647 kg [facility] BMI 2021-09-10 04:26:00 34.01 kg/m2 [facility] Systolic blood 2021-09-09 20:06:00 150 mm[Hg] Univer sity of [facility] [[email or web address] Diastolic blood 2021-09-09 20:06:00 89 mm[Hg] Unive rsity of [facility] [[email or web address] Heart rate 2021-09-09 20:06:00 108 /min [facility] Body temperature 2021-09-09 20:06:00 37.22 Ruthann [facility] Respiratory rate 2021-09-09 20:06:00 18 /min [facility] [place] [facility] Oxygen saturation in 2021-09-09 20:06:00 99 /min University of Arterial blood by [employer] nicky Pulse oximetry Branch Body weight 2021-09-09 20:05:00 81.647 kg [facility]i ty [facility] [place] [facility] BMI 2021-09-09 20:05:00 32.40 kg/m2 Universi ty [facility] [place] [facility] Systolic blood 2020-09-30 14:00:00 126 mm[Hg] Univer sity of pressure [place] [facility] Diastolic blood 2020-09-30 14:00:00 84 mm[Hg] Unive rsity of pressure [place] [facility] Heart rate 2020-09-30 14:00:00 79 /min Universi ty [facility] [place] [facility] Oxygen saturation in 2020-09-30 14:00:00 98 /min University of Arterial blood by [facility] nicky Pulse oximetry Branch Body temperature 2020-09-30 13:26:00 37.22 Ruthann Univ ersity of [place] [facility] Respiratory rate 2020-09-30 13:26:00 16 /min Univ ersity of [place] [facility] Body weight 2020-09-30 13:26:00 72.576 kg [facility]i ty [facility] [place] [facility] BMI 2020-09-30 13:26:00 28.80 kg/m2 [facility] [place] [facility] Systolic blood 2020-09-30 14:00:00 126 mm[Hg] Univer sity of pressure [place] [facility] Diastolic blood 2020-09-30 14:00:00 84 mm[Hg] Unive rsity of pressure [place] [facility] Heart rate 2020-09-30 14:00:00 79 /min [facility]i ty [facility] [place] [facility] Oxygen saturation in 2020-09-30 14:00:00 98 /min University of Arterial blood by [facility] nicky Pulse oximetry Branch Body temperature 2020-09-30 13:26:00 37.22 Ruthann Univ ersity of [place] [facility] Respiratory rate 2020-09-30 13:26:00 16 /min Univ ersity [facility] [place] [facility] Body weight 2020-09-30 13:26:00 72.576 kg [facility] [place] [facility] BMI 2020-09-30 13:26:00 28.80 kg/m2 [facility] [place] [facility] Temperature Oral (F) 2019-01-28 01:16:00 98.6 F Memorial Yonis Systolic (mm Hg) 2019-01-28 01:16:00 Estrada rial [place] Diastolic (mm Hg) 2019-01-28 01:16:00 Mem orial [place] Heart Rate 2019-01-28 01:16:00 [facility] [place] Respitory Rate 2019-01-28 01:16:00 Memori al [place] Systolic (mm Hg) 2019-01-27 20:42:00 Estrada rial Yonis Diastolic (mm Hg) 2019-01-27 20:42:00 Mem orial [place] Heart Rate 2019-01-27 20:42:00 [facility] [place] Respitory Rate 2019-01-27 20:42:00 Memori al [place] Temperature Oral (F) 2019-01-27 20:42:00 98.5 F Memorial [place] Systolic (mm Hg) 2019-01-27 17:00:00 Estrada rial [place]on[place] Diastolic (mm Hg) 2019-01-27 17:00:00 Mem orial [place] Temperature Oral (F) 2019-01-27 17:00:00 98.5 F Memorial [place] Heart Rate 2019-01-27 17:00:00 [facility] [place] Respitory Rate 2019-01-27 [facility] 2019-01-22 14:35:00 157.48 cm [facility] BMI Calculated 2019-01-22 14:35:[facility] Weight 2019-01-22 14:35:00 [facility] [place] Weight 2019-01-22 [facility]:00 [facility] Procedure Date / Time Performing Clinician Source Performed URINALYSIS 2021-09-10 06:03:00 [facility] URINE DRUG (IMMUNOASSAY) 2021-09-10 06:03:00 Neena Bradford [facility] SCREEN W/O REFLEX XR CHEST 1 VW 2021-09-10 04:57:30 [facility] CREATINE KINASE 2021-09-10 04:39:00 [facility] MAGNESIUM 2021-09-10 04:39:00 [facility] TROPONIN I 2021-09-10 04:39:00 [facility] COMP. METABOLIC PANEL 2021-09-10 04:39:00 Neena Bradford [facility] ([id number]) Medical [place] CBC WITH DIFF 2021-09-10 04:39:00 [facility] PROTHROMBIN TIME / INR 2021-09-10 04:39:00 Neena Bradford [facility] ACTIVATED PARTIAL 2021-09-10 04:39:00 Neena Bradford [facility] THRMPLAS [facility] N-TERMINAL PRO-BNP 2021-09-10 04:39:00 Neena Bradford [facility] COVID-19 (ID NOW RAPID 2021-09-10 04:39:00 [facility] [place] [facility] TESTING) Medical Branch TROPONIN I 2021-09-09 21:49:00 [facility] [place] [facility] COMP. METABOLIC PANEL 2021-09-09 21:49:00 [facility] Luanne [facility] ([id number]) Medical Branch LITHIUM 2021-09-09 21:49:00 [facility] [place] [facility] CBC WITH DIFF 2021-09-09 21:49:00 [facility] [place] [facility] CONSENT/REFUSAL FOR 2021-09-09 19:51:22 Doctor Unassigned, No Un [facility] DIAGNOSIS AND TREATMENT Name [facility] Branch URINALYSIS 2020-09-30 13:27:00 [place], [facility] ADC,CLC OR LCC ONLY - 2020-09-30 13:27:00 JacksonChuy aleman [facility] INFLUENZA A & B DIRECT Medical B ranch ANTIGEN COVID-19 (ID NOW RAPID 2020-09-30 13:27:00 [place] Chuy [facility] TESTING) Medical Branch Encounters Start End Encounter Admission Attending Care Care Encounter Source Date/Time Date/Time Type Type Clinicians Facility Department ID 2019-01-22 Inpatient E [facility] MED [id number] [facility] W 04:39:00 2021-09-09 2021-09-10 Emergency DENIA Bradford [id number] Univers 22:20:00 03:02:00 Neena WALSH [id number] i ty of [place] 4.2.7.2.686 [facility] [id number] [facility] nicky 084 Branch 2021-09-09 2021-09-10 Emergency X DENIA BRADFORD ERT [id number] Univers 22:20:00 03:02:00 NEENA tubbs [facility] 2021-09-09 2021-09-10 Emergency X SANCHEZ [facility] ERT [id number] Univers 22:20:00 03:02:00 NEENA tubbs [facility] 2021-09-09 2021-09-09 [facility] [id number] Univers 14:07:00 17:35:00 Luanne WALSH [id number] i ty of [place] 4.2.7.2.686 [facility] [id number] [address] 2021-09-09 2021-09-09 Orders Doctor BELKYS [id number] Univers 00:00:00 00:00:00 Only Unassigned, LANA 350.1.13.10 ity of [place] [facility] 4.2.7.2.686 Joe [id number] [address] 2020-09-30 2020-09-30 [facility] [id number] Univers 07:22:00 08:18:00 Chuy Walsh [id number] i ty of [place] 4.2.7.2.686 [facility] [id number] [address] 2020-09-30 2020-09-30 Emergency [facility] [id number] 07:22:00 08:18:00 Chuy Walsh [id number] [place] 4.2.7.2.686 [place] [id number] [facility] 2020-09-30 2020-09-30 Emergency X [facility] ERT [id number] Univers 07:22:00 07:22:00 CHUY tubbs [facility] 2020-04-05 2020-04-05 Outpatient Humaira-Mbayo VFP [facility] [address] 05:44:00 05:44:00 _A_AH 08414 Family Practic e 2020-04-05 2020-04-05 Outpatient Humaira-Mbayo VFP VFP [address] 05:44:00 05:44:00 _A_AH 13958 Family Practic e 2020-04-05 2020-04-05 Outpatient Humaira-Alekso VFP VFP [id number] [facility] 05:44:00 05:44:00 _A_AH 03070 Family Practic e 2020-04-05 2020-04-05 Outpatient Humaira-Alekso VFP VFP [id number] [facility] 05:44:00 05:44:00 _A_AH 29813 Family Practic e 2020-03-04 2020-03-14 Inpatient 3 Ronni Eldridge [facility] PS[facility] [id number] 15:38:00 15:25:00 [facility] 2019-12-13 2019-12-13 Outpatient Humaira-Alekso VFP VFP [id number] 07:22:00 07:22:00 _A_ 15063 Family Practic e 2019-01-22 2019-01-28 Inpatient Counts include 234 beds at the [facility] [id number] Memoria 04:33:00 04:40:00 martin Somers 00 l [facility] 2018-02-21 2018-02-20 [facility] [id number] [id number] 14:48:00 13:18:00 [facility] Results Test Description Test Time Test Comments Results Result Comments Source TROPONIN I 2021-09-10 05:26:53 Test Item Value Reference Range Interpretation Comme nts TROPONIN I (test code = 0.003 ng/mL See_Comment [Au tomated message] The 6346822350) system which ge nerated this result tra [...] biotin. Lab Interpretation Normal (test code = 88958-4) [facility] [id number] 05:24:16 Test Item Value Reference Range Interpretation Comments NT-proBNP (test code 35 pg/mL See_Comment [Autom ated = 4872849668) message] The system which generated this result transmitted reference range : <=125. The reference range was not used to interpret this result as normal/abnormal . PERRY (test code = PERRY) Biotin has been reported to cause a negative bias, interpret results relative to patient's use of biotin. Lab Interpretation Normal (test code = 61834-5) [place] [facility]2021-[facility]-17 05:16:51 Test Item Value Reference Range Interpretation Comments MAGNESIUM (test code = 8585320249) 1.8 mg/dL 1.7-2.4 Lab Interpretation (test code = Normal 80068-9) [facility] ([id number])2021-09-10 05:16:31 Test Item Value Reference Range Interpretation Comments NA (test code = 139 mmol/L 135-145 6361613190) K (test code = 4.0 mmol/L 3.5-5.0 3607611616) CL (test code = 108 mmol/L 98-108 6278468433) CO2 TOTAL (test code 25 mmol/L 23-31 = 1742920624) AGAP (test code = 2-16 5630975023) BUN (test code = 14 mg/dL 7-23 5725785001) GLUCOSE (test code = 88 mg/dL 70-110 0073767511) CREATININE (test code 0.89 mg/dL 0.50-1.04 = 7802887390) TOTAL BILI (test code 0.5 mg/dL 0.1-1.1 = 7347288980) CALCIUM (test code = 10.3 mg/dL 8.6-10.6 8739331628) T PROTEIN (test code 6.9 g/dL 6.3-8.2 = 9904963753) ALBUMIN (test code = 4.3 g/dL 3.5-5.0 0191427138) ALK PHOS (test code = 72 U/L 34-122 3223610571) ALTv (test code = 17 U/L 35 1742-6) AST(SGOT) (test code 29 U/L 13-40 = 6000695923) eGFR (test code = mL/min/1.73m2 0818176181) PERRY (test code = PERRY) Association of [...] or urine or abnormalities in imaging tests). [facility] [id number] 05:16:16 Test Item Value Reference Range Interpretation Comments CK (test code = 7073880073) 267 U/L 33-194 H Lab Interpretation (test code = Abnormal 53735-5) [facility] THRMPLAS [id number] 05:05:32 Test Item Value Reference Range Interpretation Comments APTT Patient (test See_Comment [Automat ed code = 3173-2) message] The system which generated this result transmitted reference range : 23 - 38 Seconds . The reference range was not used to interpr et this result as normal/abnormal . PERRY (test code = PERRY) The [facility] patient population mean normal value for aPTT is 30 seconds. Lab Interpretation Normal (test code = 19399-8) [facility] CenterPROT[facility]OMBIN TIME / [id number] 05:03:30 Test Item Value Reference Range Interpretation [...] tions. Lab Interpretation (test Normal code = 85069-0) [facility] CenterCB WITH [id number] 04:57:13 Test Item Value Reference Range Interpretation Comments WBC (test code = See_Comment [Automated 4690-2) message] The sy stem which generated this result transmitted reference range : 4.30 - 11.10 10*3/?L. The reference range was not used to interpret this result as normal/abnormal . RBC (test code = See_Comment [Automated 459-8) message] The sy stem which generated this [...] RDW-SD (test code = 41.2 fL 39.0-49.9 20893-4) RDW-CV (test code = 13.0 % 12.0-15.5 788-0) PLT (test code = See_Comment H [Automated 777-3) message] The sy stem which generated this result transmitted reference range : 166 - 358 10*3/ ?L. The reference r katie was not used to interpret this result as normal/abnormal . MPV (test code = 9.6 fL 9.5-12.9 48490-2) NRBC/100 WBC (test See_Comment [Automat ed code = 2767902975) message] The system which generated this result transmitted reference range : 0.0 - 10.0 /100 WBCs. The refer ence range was not u sed to interpret th is result as normal/abnormal . NRBC x10^3 (test code <0.01 See_Comment [Auto mated = 2391427638) message] The s ystem which generated this result transmitted reference range : 10*3/?L. The reference range was not used to interpret this result as normal/abnormal . GRAN MAT (NEUT) % 61.9 % (test code = 770-8) IMM GRAN % (test code 0.30 % = 7922071805) LYMPH % (test code = 26.0 % 736-9) MONO % (test code = 9.5 % 5905-5) EOS % (test code = 1.6 % 713-8) BASO % (test code = 0.7 % 706-2) GRAN MAT x10^3(ANC) 5.91 10*3/uL 1.88-7.09 (test code = 8255557556) IMM GRAN x10^3 (test 0.03 10*3/uL 0.00-0.06 code = 0784120848) LYMPH x10^3 (test code 2.48 10*3/uL 1.32-3.29 = 731-0) MONO x10^3 (test code 0.91 10*3/uL 0.33-0.92 = 742-7) EOS x10^3 (test code = 0.15 10*3/uL 0.03-0.39 711-2) BASO x10^3 (test code 0.07 10*3/uL 0.01-0.07 = 704-7) Lab Interpretation Abnormal (test code = 82892-0) [facility] CenterJ[facility]ICA [id number] 22:24:55 Test Item Value Reference Interpretation Comments Range TROPONIN I (test 0.002 ng/mL See_Comment [Automated code = 9226235009) message] The system which generated this result [...] biotin. Lab Interpretation Normal (test code = 52275-8) [facility]2021-[facility]-16 22:24:34 Test Item Value Reference Range Interpretation Comments Zapata (test code = <0.2 0.6-1.2 L 2601408258) PERRY (test code = PERRY) Toxic Range: ? Greater than 1.2 mmol/L Lab Interpretation (test Abnormal code = 43176-9) [facility] Center[facility]. METABOLIC PANEL ([id number])2021-09-09 22:13:54 Test Item Value Reference Range Interpretation Comments NA (test code = 139 mmol/L 135-145 8724922415) K (test code = 4.0 mmol/L 3.5-5.0 3303822504) CL (test code = 105 mmol/L 98-108 1834766959) CO2 TOTAL (test code 26 mmol/L 23-31 = 0133988774) AGAP (test code = 2-16 [id number]) BUN (test code = 11 mg/dL 7-23 4068215033) GLUCOSE (test code = 109 mg/dL 70-110 7667175848) CREATININE (test code 0.71 mg/dL 0.50-1.04 = 4461580357) TOTAL BILI (test code 0.6 mg/dL 0.1-1.1 = 0678210902) CALCIUM (test code = 10.4 mg/dL 8.6-10.6 3822350332) T PROTEIN (test code 7.6 g/dL 6.3-8.2 = 4715683746) ALBUMIN (test code = 4.7 g/dL 3.5-5.0 6379131886) ALK PHOS (test code = 78 U/L 34-122 5461165029) ALTv (test code = 19 U/L 5-35 1742-6) AST(SGOT) (test code 28 U/L 13-40 = 9739316750) eGFR (test code = mL/min/1.73m2 3454034075) PERRY (test code = PERRY) Association of [...] or urine or abnormalities in imaging tests). [facility] WITH INXO0186-45-85 22:03:32 Test Item Value Reference Range Interpretation [...] RDW-SD (test code = 40.2 fL 39.0-49.9 93032-2) RDW-CV (test code = 12.9 % 12.0-15.5 788-0) PLT (test code = See_Comment H [Automated 777-3) message] The sy stem which generated this result transmitted reference range : 166 - 358 10*3/ ?L. The reference r katie was not used to interpret this result as normal/abnormal . MPV (test code = 9.4 fL 9.5-12.9 L 45036-1) NRBC/100 WBC (test See_Comment [Automat ed code = 8614232368) message] The system which generated this result transmitted reference range : 0.0 - 10.0 /100 WBCs. The refer ence range was not u sed to interpret th is result as normal/abnormal . NRBC x10^3 (test code <0.01 See_Comment [Auto mated = 1493187048) message] The s ystem which generated this result transmitted reference range : 10*3/?L. The reference range was not used to interpret this result as normal/abnormal . GRAN MAT (NEUT) % 67.1 % (test code = 770-8) IMM GRAN % (test code 1.00 % = 8939539349) LYMPH % (test code = 21.4 % 736-9) MONO % (test code = 7.9 % 5905-5) EOS % (test code = 1.8 % 713-8) BASO % (test code = 0.8 % 706-2) GRAN MAT x10^3(ANC) 7.35 10*3/uL 1.88-7.09 H (test code = 1574400045) IMM GRAN x10^3 (test 0.11 10*3/uL 0.00-0.06 H code = 9462590641) LYMPH x10^3 (test code 2.34 10*3/uL 1.32-3.29 = 731-0) MONO x10^3 (test code 0.86 10*3/uL 0.33-0.92 = 742-7) EOS x10^3 (test code = 0.20 10*3/uL 0.03-0.39 711-2) BASO x10^3 (test code 0.09 10*3/uL 0.01-0.07 H = 704-7) Lab Interpretation Abnormal (test code = 59209-3) [facility] IN[facility]UENZA A & B DIRECT PAPDIEL8057-69-30 14:04:00 Test Item Value Reference Range Interpretation Comments Influenza A (test code = 27920-2) Negative Negative Influenza B (test code = 56778-1) Negative Negative Lab Interpretation (test code = Normal 00540-4) [facility] NOW RAPID TESTING)2020-09-30 14:03:00 Test Item Value Reference Range Interpretation Comments SARS-CoV-2 Rapid ID NOW Not Detected Not Detected (test code = 96065-0) PERRY (test code = PERRY) ID NOW COVID-19 Assay is an isothermal nucleic acid amplification test intended for the qualitative detection of nucleic acid from SARS-CoV-2 viral RNA in nasopharyngeal (CONSTRUCTION TRENCH DIGGER) specimens. It is used under Emergency Use [...] indicated. Lab Interpretation Normal (test code = 65979-5) [facility] 13:55:00 Test Item Value Reference Range Interpretation Comments APPEARANCE (test code = Hazy Clear A 2843617366) COLOR (test code = Yellow Yellow 7734952131) PH (test code = 4.8-8.0 7336157941) SP GRAVITY (test code = 1.003-1.030 2937938527) GLU U QUAL (test code = Normal Normal 9406924868) BLOOD (test code = Negative Negative 3805924374) KETONES (test code = 5 mg/dL Negative A 7299265131) PROTEIN (test code = Negative Negative 2887-8) UROBILIN (test code = 2.0 mg/dL Normal A 5351836921) BILIRUBIN (test code = Negative Negative 8080702463) NITRITE (test code = Negative Negative 6004219283) LEUK ROZINA (test code = 25/uL Negative A 5990921169) RBC/HPF (test code = See_Comment [Autom ated message] 8638251375) The system [employer] generated this result transmit ngozi reference range : 0 - 3 HPF. The refe rence range was not u sed to interpret th is result as normal/abnormal . WBC/HPF (test code = See_Comment [Autom ated message] 6710676448) The system [employer] generated this result transmit ngozi reference range : 0 - 5 HPF. The refe rence range was not u sed to interpret th is result as normal/abnormal . BACTERIA (test code = Few Negative A 2434869485) MUCOUS (test code = Slight Negative LPF A 3877205038) SQ EPITH (test code = HPF 1671975786) Lab Interpretation (test Abnormal code = 13002-3) [facility] CenterRPR Gczxewvyrij5665-13-99 16:42:24 Test Item Value Reference Range Interpretation [...] = 10-24-2020 N Expiration Dt) Thyroid Stimulating Ofxctyk0630-80-42 08:35:16 Test Item Value Reference Range Interpretation Comments TSH (test code = TSH) 1.170 mIU/mL 0.270-4.200 Lipid Dhkcx2886-98-81 08:21:19 Test Item Value Reference Range Interpretation Comments Cholesterol Total 254 mg/dL 0-200 H RISK OF HE ART (test code = DISEASEPublishe d by Cholesterol Total) [place] Cathie lyte Optimal Borderl ine [...] calculation is LDL/HDL Ratio=L DL Calc/HDL Chol BIVMFNGZDXEN8171-24-67 08:24:0027[facility] FdlirmyEISLBKALTEMY7672-25-63 08:24:00 139[facility] WpjwgyiFBCOWNSPOPDE1551-75-85 08:24:003.6[facility] XPUOXGTQFARG1466-29-32 08:24:000.70[facility] JzgpybiBKZQHABKISNG3687-25-29 08:24:008.4[facility] RuoqjasQFDYTUIOUZIO0489-97-16 08:24:04399Sgmlgexb Yonis ZYRNJRLEEAPG1453-19-60 08:24:0086[facility] AuwxjmtBTBRYCPQXVVF9374-14-82 08:24:00 6[facility] UqccfcqGCZGWYPJOT8160-28-99 08:24:0011.6[facility]annHEMATOLOGY 2019-01-26 08:24:003.78[facility] LpblgjhIDMFXUSCNW6746-73-77 08:24:0013.3[facility] ElpnoxpOLPGYVFCDN7179-05-40 08:24:0034.0[facility] CkykkphLFNRGXKRGY9335-51-68 08:24:006.3[facility] KiuavusWHNLXHSQRY8578-90-19 08:24:00 Test Item Value Reference Range Interpretation Comments MCH (test code = MCH) 30.7 pg 27.0-31.0 [facility] PixtvykNGQIAOUGDQ2195-19-84 08:24:0090.3[facility] HermannHEMATOLOGY 2019-01-26 08:24:0034.2[facility] IfuyfyxHKUYNQDWQS6506-21-57 08:24:53174Ftizpyae CoovfdwRVNYBEBXCW6545-09-16 08:24:007.5[facility] IjetoifICAGXEGRDEXY8061-84-26 08:24:008.6[facility] EddnowsNSWXYHHULHWU8717-64-21 08:24:10484Syidaztq [place] SPSNFSBOUFVO8252-91-89 08:24:0027[facility] VsyttlvYYHKYBSYQNMR0851-08-58 08:24:00 139[facility] ZabkfjmSFVNNLYIOHXS8239-64-50 08:24:003.6[facility] NMDCDJGZSTGD0930-36-27 08:24:000.70[facility] SjvyeyxMZRDFUELVFEU8905-17-17 08:24:008.4[facility] GutckdlTEOOWZEQEHFJ9834-29-86 08:24:30124Plraoxzq [place] EXQNZOTEWGMI3687-67-49 08:24:0086[facility] StxisldKNWUWOSLFLKZ0838-60-72 08:24:00 6[facility] OkoyhfsYLKLSKSMSI8338-42-46 08:24:0011.6[facility] HermannHEMATOLOGY 2019-01-26 08:24:003.78[facility] ZawfjcuJIMBHDHGAU2639-30-20 08:24:0013.3[facility] QcoznrwETKEDNEUPN4162-55-18 08:24:0034.0[facility] HlzqyzwLCJLTVVNCB4194-32-72 08:24:006.3[facility] ZipkwdpGZAOECCJQG7563-71-91 08:24:00 Test Item Value Reference Range Interpretation Comments MCH (test code = MCH) 30.7 pg 27.0-31.0 [facility] WnervpuWTJRUIOBRO4287-02-24 08:24:0090.3[facility] HermannHEMATOLOGY 2019-01-26 08:24:0034.2[facility] BrfhzcsGKFYCHGDEW3234-00-00 08:24:60113Bmszibnx XlmwrcjOEDEVTEFMB3802-90-59 08:24:007.5[facility] UhvvcdcOLDPBHXZYTWR0423-93-32 08:24:008.6[facility] UmkyxqeRBYTRKOVIIVS8664-11-25 08:24:26516Kaeeierp [place] CHEM UORGE0800-63-56 09:14:13038Kjndveqi HermannCHEM JJSSQ6314-69-87 09:14:008.5 [facility]annCHEM AFKWV1272-47-36 09:14:0013.3[facility] HermannCHEM PANEL 2019-01-25 09:14:0024[facility]annCHEM PYCHN6977-92-50 09:14:28686Esodpbwz HermannCHEM ZFOHR2536-17-23 09:14:0081[facility]annCHEM UCFEQ4362-97-39 09:14:002[facility]annCHEM NLVXX8899-41-68 09:14:003.3[facility]annCHEM FJSSK5283-56-72 09:14:000.60[facility]annCHEM COYTG2484-80-43 09:14:91830 [facility]annCHEM YROEE9167-66-73 09:14:57658Eioqwqbw HermannCHEM PANEL 2019-01-25 09:14:008.5[facility] HermannCHEM QRKKV0894-82-28 09:14:0013.3[facility] HermannCHEM MRESY2499-70-68 09:14:0024[facility]annCHEM DTQBL3191-92-26 09:14:43110Hymcphwc HermannCHEM KCYQO8199-12-43 09:14:0081[facility] HermannCHEM HJLYZ9658-03-29 09:14:002[facility]annCHEM LSITN5535-89-89 09:14:003.3 [facility]annCHEM KDWFF4163-70-18 09:14:000.60[facility] HermannCHEM PANEL 2019-01-25 09:14:15181Fhplumon HermannMOLECULAR MECGETONUV4767-38-85 16:22:00 Negative (01/23/19 11:22 AM)[facility] HermannMOLECULAR ZPZHWBFHRM3127-98-73 16:22:00Negative (01/23/19 11:22 AM)[facility]annCHEM BQFZG5808-46-02 15:42:00 2.76[facility] HermannCHEM VCKPD9103-93-10 15:42:002.76[facility]annCHEM PANEL 2019-01-23 12:32:000.9[facility] HermannCHEM GKUDY7287-28-05 12:32:000.9[facility] HermannCHEM GFJDY6694-11-29 10:50:002.0[facility] HermannCHEM LRPLY7678-60-31 10:50:24445Kvnhlxmf HermannCHEM LOSMN4322-21-21 10:50:0023[facility] HermannCHEM VZQCN7516-36-64 10:50:91921Xxkewyzk HermannCHEM SVAAF1303-21-67 10:50:003.1 [facility]annCHEM WRVZI6354-35-53 10:50:90954Aceoyemk HermannCHEM PANEL 2019-01-23 10:50:005[facility] HermannCHEM FPBFU9226-22-85 10:50:000.50[facility] HermannCHEM YVWUQ0183-83-19 10:50:007.8[facility] HermannCHEM DZHAG9086-36-22 10:50:0083[facility]annCHEM SQZNH0847-18-01 10:50:0010.1[facility] ISWAWUXBFH5433-78-19 10:50:000.2[facility] ZlelbguRTGJRWNUSB3207-54-97 10:50:000.8 [facility] SkelvtpPHNSLXPJSL9188-43-62 10:50:005.5[facility] HermannHEMATOLOGY 2019-01-23 10:50:002.2[facility] SfkftcoNYBVTGUTXD7761-32-20 10:50:000.1[facility] SwuszwxFMNSCDTNYM9850-08-18 10:50:0063.6[facility] IockplcUDGLULPJJW5187-62-98 10:50:008.9[facility] NkibaeiMCUBSNFSKK2294-07-20 10:50:002.3[facility] TFGVYXLEGL0679-67-03 10:50:00Normal (01/23/19 5:50 AM)[facility]annHEMATOLOGY 2019-01-23 10:50:00Normal (01/23/19 5:50 AM)[facility] PlyrdmlNBZIBOCAYB3540-42-40 10:50:0025.1[facility] LnkqyrmTYLJEEKECT6921-83-04 10:50:0013.1[facility] DNNBBWVBFQ2338-00-74 10:50:93494Fldokwdx KewvjenYVEBHYBJDX5225-72-28 10:50:007.7 [facility] MvrnggxNEKLLCLXKY0595-61-78 10:50:008.6[facility] HermannHEMATOLOGY 2019-01-23 10:50:0010.0[facility] WehzvqcKDJLCRQDPQ2459-99-55 10:50:0034.emorial LavnpwyUUBTDJUZWT4319-21-15 10:50:0028.7[facility] UketskmWHSDHVHKRS0425-73-80 10:50:0087.8[facility] NkxmxqiIVFPOYRVVH0573-11-31 10:50:00 Test Item Value Reference Range Interpretation Comments MCH (test code = MCH) 30.4 pg 27.0-31.0 [facility] BgycoukTYOXTZRVBM3227-37-43 10:50:003.27[facility] HermannHEMATOLOGY 2019-01-23 10:50:89823Gtvmtfzj RbraceoGPLVZYWRBS4275-40-24 10:50:007.7[facility] ApoblubNXNKTRVVWF2153-74-85 10:50:008.emorial WyxvvcjLVSNZEZKWO5870-56-57 10:50:0010.0[facility] HbimhotRNFCSHLGWD1721-44-37 10:50:0034.6[facility] CHEM NZVHF4017-42-56 10:50:002.0[facility] HermannCHEM XTUSR5284-53-81 10:50:77278 [facility]annCHEM TTIMI3890-71-84 10:50:0023[facility]annCHEM PANEL 2019-01-23 10:50:68397Vyzpzyxo PsiauugQIVMGZXGSQ0964-11-73 10:50:0028.7[facility] HermannCHEM JIACH6852-06-94 10:50:003.1[facility] HermannCHEM BRHBP7236-16-04 10:50:38016Njpuptas HermannCHEM EPZCG1758-08-14 10:50:005[facility] HermannCHEM FLJOQ7416-02-71 10:50:000.50[facility] HermannCHEM RDKWL2463-89-73 10:50:007.8 [facility] HmxzsjrVMIXDHKBUW9806-43-28 10:50:0087.8[facility] HermannCHEM PANEL 2019-01-23 10:50:0083[facility] HermannCHEM GZHQN7005-25-20 10:50:0010.1[facility] LdskburTQCPKBMJLZ7607-09-90 10:50:000.2[facility] EnsoeflAEBJSWOEOZ1588-98-74 10:50:000.8[facility] KinwaebFELUQBORWN2921-46-24 10:50:005.5[facility] ENRLOIGNNU9648-54-36 10:50:002.2[facility] RdgcnkmQUBBKWPIKS1502-07-61 10:50:00 Test Item Value Reference Range Interpretation Comments MCH (test code = MCH) 30.4 pg 27.0-31.0 [facility] IucaydqEJUCDIRKYB6754-24-10 10:50:000.1[facility] HermannHEMATOLOGY 2019-01-23 10:50:0063.6[facility] YahyeftALTUNYEALO8780-90-97 10:50:008.9[facility] SwfhhxhEABNJYLHYM0247-99-52 10:50:002.3[facility] VizubngOPLBRTCDAO7600-68-77 10:50:00Normal (01/23/19 5:50 AM)[facility] TpolsfyFVHWNYEEYJ1225-22-33 10:50:00 Normal (01/23/19 5:50 AM)[facility] ElugnfuVSGYUFRIQK3048-92-38 10:50:003.27[facility] CyigukkGPSKAUOGAI8940-68-87 10:50:0025.1[facility] SulywabEQZNOJZVWD6234-15-29 10:50:0013.1[facility] HermannCHEM MYHDL1164-12-13 11:32:002.4[facility] HermannCHEM EOSUD3125-25-43 11:32:002.4[facility] HermannCHEM EYQSS0791-62-89 09:04:003.0 [facility]annCHEM NTYVY7593-04-38 09:04:003.0[facility]annURINE AND STOOL 2019-01-22 07:14:00 Test Item Value Reference Range Interpretation Comments UA Spec Grav (test code = UA Spec 1.014 1 Grav) [facility] QNUQQ2748-97-91 07:14:00 Test Item Value Reference Range Interpretation Comments UA pH (test code = UA pH) 6.0 1 5.0-8.0 [facility] RYCNV6183-81-19 07:14:00Negative (01/22/19 2:14 AM) [facility] TQNTA2752-81-65 07:14:00Negative *NA*(01/22/19 2:14 AM) [facility] UJXCN5457-19-47 07:14:00Negative *NA*(01/22/19 2:14 AM) [facility] HVZHH8079-57-11 07:14:00Negative *NA*(01/22/19 2:14 AM) [facility] WSPTP1405-20-13 07:14:00Negative (01/22/19 2:14 AM) [facility] QNHBC8306-71-09 07:14:00Negative (01/22/19 2:14 AM) [facility] IRRFY8013-38-33 07:14:00Negative (01/22/19 2:14 AM) [facility] DKUJU2896-55-35 07:14:00<1[facility] IBIOC7030-85-90 07:14:0025[facility]annUR[facility] AND UJRJV6850-21-35 07:14:002 [facility] ZQEOW3835-93-56 07:14:00Light Yellow *NA*(01/22/19 2:14 AM)[facility] JFLGJ1231-30-67 07:14:00Clear (01/22/19 2:14 AM) [facility] ZIBLO2674-68-72 07:14:00 Test Item Value Reference Range Interpretation Comments UA Spec Grav (test code = UA Spec 1.014 1 Grav) [facility] IKEVL4074-68-18 07:14:00 Test Item Value Reference Range Interpretation Comments UA pH (test code = UA pH) 6.0 1 5.0-8.0 [facility] GTOTP3113-86-25 07:14:00Negative (01/22/19 2:14 AM) [facility] VOIUU1842-61-35 07:14:00Negative *NA*(01/22/19 2:14 AM) [facility] JRGAK6122-90-24 07:14:00Negative *NA*(01/22/19 2:14 AM) [facility] SHPPU8022-85-05 07:14:00Negative *NA*(01/22/19 2:14 AM) [facility] KYLSA9577-64-50 07:14:00Negative (01/22/19 2:14 AM) [facility] TFGSV9870-07-02 07:14:00Negative (01/22/19 2:14 AM) [facility] LTRKI1636-76-52 07:14:00Negative (01/22/19 2:14 AM) [facility] TRHXO5023-36-19 07:14:00<1[facility] PHDOK5794-78-52 07:14:0025[facility]UR[facility] EDOZT4923-28-57 07:14:002 [facility] GLVJO3162-00-72 07:14:00Light Yellow *NA*(01/22/19 2:14 AM)[facility] UHYJS8480-33-24 07:14:00Clear (01/22/19 2:14 AM) [facility] ChsetnnPQOFN4273-69-61 05:16:000.90[facility] JhjcdhiDJUXE9417-60-21 05:16:000.90[facility] HermannBLOOD BANK ZSCQIDZ3179-35-49 05:01:00Negative (01/22/19 12:01 AM)[facility] HermannCARDIAC RPYFJZY8091-39-58 05:01:00<0.02 [facility]annCARDIAC EYGLYEX7197-30-31 05:01:0049[facility]annCHEM PANEL 2019-01-22 05:01:000.6[facility] HermannCHEM CLZRM4417-64-07 05:01:50540Vifcscwx HermannCHEM ZRPOS5154-75-08 05:01:004.0[facility] HermannCHEM WXECA1740-63-12 05:01:0017[facility] HermannCHEM YROFM3773-59-43 05:01:0025[facility]annCHEM NJVXT5238-99-58 05:01:008.1[facility]annCHEM LBDNX6540-72-58 05:01:00 Test Item Value Reference Range Interpretation Comments B/C Ratio (test code = B/C Ratio) 20 1 6-25 [facility]annCHEM GCWIX9117-01-62 05:01:00 Test Item Value Reference Range Interpretation Comments A/G Ratio (test code = A/G Ratio) 1.0 1 0.7-1.6 [facility]annCHE[facility] SHJMF5529-21-98 05:01:004.1[facility]annCHEM PANEL 2019-01-22 05:01:006.90[facility] BnlhiheZPFLRSCMKDHDX0248-06-73 05:01:00Negative *NA*(01/22/19 12:01 AM)[facility] SfueztkMDXTAALDSP4546-82-70 05:01:000.1[facility] QzvdaaeXUTEKPVHAO5286-00-92 05:01:000.7[facility] IzmrgzlBDNSPTUPAP5488-25-59 05:01:000.0[facility] EugpdhmJDQUPLKFGH1734-96-87 05:01:000.0[facility] DPREUQQSDI1105-29-90 05:01:000.9[facility] PjnggqdTLPSEHWXUY8834-77-05 05:01:008.6 [facility] IyfikvkXDTMDFRPNN8920-21-45 05:01:000.6[facility]annHEMATOLOGY 2019-01-22 05:01:0086.5[facility] TodegyxIGNVMIPQZK7297-60-12 05:01:005.7[facility] WsrrvkyVJYPMHHVBF4685-60-01 05:01:006.9[facility] WdeqkrcFBXKZYLWHY6003-08-73 05:01:009.9[facility] LqkhmccAPLYIFRQBT3509-76-77 05:01:0032.8[facility] GLPJZHEJYF1012-89-84 05:01:0013.6[facility] IdtjzkjIBMXIHGCHQ8809-80-85 05:01:00 443[facility] ZjqxrvoPRCHPDYTNF8747-48-89 05:01:007.3[facility]annHEMATOLOGY 2019-01-22 05:01:0014.0[facility] BlmonhiGMHNNZTFPY3448-09-83 05:01:004.85[facility] VglmoghDOKUSMWOUB7122-59-89 05:01:0042.7[facility] LjjosulSEPOVUAMUL2149-61-54 05:01:00 Test Item Value Reference Range Interpretation Comments MCH (test code = MCH) 29.0 pg 27.0-31.0 [facility] CspvfogWJKIWSIWGX4917-43-23 05:01:0088.2[facility]annHEMATOLOGY 2019-01-22 05:01:00 Test Item Value Reference Range Interpretation Comments INR (test code = INR) 0.96 1 0.85-1.17 [facility] QefzgkzGOAXAOHFPU3674-12-97 05:01:00 Test Item Value Reference Range Interpretation Comments PT (test code = PT) 12.6 s 12.0-14.7 [facility]WPZDVNBXQB4979-[facility] 05:01:00 Test Item Value Reference Range Interpretation Comments PTT (test code = PTT) 25.9 s 22.9-35.8 [facility] BHVLKNK9417-37-20 05:01:00Negative (01/22/19 12:01 AM) [facility]annCARDIAC YYQQZOO7332-36-15 05:01:00<0.02[facility] CARDIAC NMVCOWV3931-94-40 05:01:0049[facility] HermannCHEM OWEGE0604-13-67 05:01:000.6[facility] HermannCHEM HZNOQ1961-73-04 05:01:74717Xutpwxtj HermannCHEM SFGHL3551-60-76 05:01:004.0[facility] HermannCHEM QWBUF4644-96-60 05:01:0017 [facility]annCHEM ZMEMH5115-30-14 05:01:0025[facility]annCHEM PANEL 2019-01-22 05:01:008.1[facility] HermannCHEM PSAIW6194-52-40 05:01:00 Test Item Value Reference Range Interpretation Comments B/C Ratio (test code = B/C Ratio) 20 1 6-25 [facility]annCHEM OXMJS6062-79-48 05:01:00 Test Item Value Reference Range Interpretation Comments A/G Ratio (test code = A/G Ratio) 1.0 1 0.7-1.6 [facility]annCHEM AOTPA7965-05-33 05:01:004.1[facility]annCHEM PANEL 2019-01-22 05:01:006.90[facility] WlfrqkpAPTRXNTYLKVAG9152-90-12 05:01:00Negative *NA*(01/22/19 12:01 AM)[facility] NsuseadHNEFFQKJPE6323-74-44 05:01:000.1[facility] TczzdwwIFFADQGYKD3222-89-02 05:01:000.7[facility] LmoiipoENONJDPRSU8313-25-87 05:01:000.0[facility] JkkoslpSXNTFQXENR1911-10-67 05:01:000.0[facility] LEUFSSZRZG2321-60-82 05:01:000.9[facility] FecwcheXJINMTYXWR3386-32-12 05:01:008.6 [facility] LaydankXBRIDJXQSW1767-39-39 05:01:000.6[facility]annHEMATOLOGY 2019-01-22 05:01:0086.5[facility] LfefhrbFGWWQBTNOJ8594-86-34 05:01:005.7[facility] HdvhgfjWFADKDVVSN5391-69-76 05:01:006.9[facility] HtjitkpBHWJVFSEPL9728-00-23 05:01:009.9[facility] XuftxehLKTSZISZXC9877-98-67 05:01:0032.8[facility] QDRUQUYHPM6502-47-11 05:01:0013.6[facility] LvwvjqmNPMKHHBMWW9666-54-58 05:01:00 443[facility] AovqwwjRGTCYXYEGJ8920-54-36 05:01:007.3[facility]annHEMATOLOGY 2019-01-22 05:01:0014.0[facility] JiqtzonVMOOJCWSLJ0239-59-40 05:01:004.85[facility] NyzlpukXNYTPZWIZZ2558-21-49 05:01:0042.7[facility] BvysxaiLFYBMJTYAW5103-44-03 05:01:00 Test Item Value Reference Range Interpretation Comments MCH (test code = MCH) 29.0 pg 27.0-31.0 [facility]jdyrfzQDDPGASONN4714-60-67 05:01:0088.2[facility]annHEMATOLOGY 2019-01-22 05:01:00 Test Item Value Reference Range Interpretation Comments INR (test code = INR) 0.96 1 0.85-1.17 [facility]3508[facility]68-79 05:01:00 Test Item Value Reference Range Interpretation Comments PT (test code = PT) 12.6 s 12.0-14.7 [facility] HospitalQaazilhSKKGJVKEUY1974-55-48 05:01:00 Test Item Value Reference Range Interpretation Comments PTT (test code = PTT) 25.9 s 22.9-35.8 [facility]E2781[facility]76-64 14:36:00 Test Item Value Reference Range Interpretation [...] 0.00-0.01 N code = ETOHU) Comprehensive Metabolic [id number] 14:36:00 Test Item Value Reference Range Interpretation [...] the [employer],http :[email or web address].nih.gov Urinalysis Hpommrra7122-01-41 14:32:00 Test Item Value Reference Range Interpretation Comments Color (test code = COLOR) Yellow Yellow,Straw,Pl N yellow Clarity (test code = Clear Clear N CLAR) Specific [place] (test 1.024 1.001-1.035 N code = SPGR) [...] code = Few /HPF BACT) CBC with Wqfrrqzwqgth4751-88-41 14:21:00 Test Item Value Reference Range Interpretation [...] code = ALYMPH) 3.0 K/cumm 0.5-4.6 N [place] Abs (test code = AMONO) 0.5 K/cumm 0.0-1.2 N Eos Abs (test code = AEOS) 0.19 K/cumm 0.00-0.74 N Baso Abs (test code = ABASO) 0.1 K/cumm 0.00-0.21 N
--- NOTE | 2021-10-01 01:28 | EDPHYS ---
Physician Documentation [facility] Name: Tiffany Quinn Age: 51 yrs Sex: Female : 1970 Arrival Date: 10/01/2021 Time: 00:15 Bed DIS2 Private MD: ED Physician David Brown HPI: 10/01 01:25 This 51 yrs old Female presents to ER via Ambulatory with complaints of Anxiety. jr8 01:25 This is a 51-year-old female that presented to the emergency room with complaints of jr8 anxiety. Patient has been seen multiple times in the last couple weeks with the same symptoms. Patient has psychiatric history and has been having auditory and visual hallucinations. She is currently not a harm to herself as she denies suicidal ideations or homicidal ideations. Patient is currently alert and oriented to person place time and event. Patient stated that she was just concerned because of all the paranoia she has been having with the voices.. - Immunization history:: Client reports receiving the 2nd dose of the Covid vaccine. ROS: 01:25 Eyes: Negative for injury, pain, redness, and discharge, ENT: Negative for injury, jr8 pain, and discharge, Neck: Negative for injury, pain, and swelling, Cardiovascular: Negative for chest pain, palpitations, and edema, Respiratory: Negative for shortness of breath, cough, wheezing, and pleuritic chest pain, Abdomen/GI: Negative for abdominal pain, nausea, vomiting, diarrhea, and constipation, Back: Negative for injury and pain, MS/Extremity: Negative for injury and deformity, Skin: Negative for injury, rash, and discoloration, Neuro: Negative for headache, weakness, numbness, tingling, and seizure. 01:25 Psych: Positive for anxiety, auditory hallucinations, visual hallucinations, Negative for homicidal ideation, suicide gesture, suicidal ideation. Exam: 01:25 Constitutional: This is a well developed, well nourished patient who is awake, alert, jr8 and in no acute distress. Cardiovascular: Regular rate and rhythm with a normal S1 and S2. No gallops, murmurs, or rubs. Normal PMI, no JVD. No pulse deficits. Respiratory: Lungs have equal breath sounds bilaterally, clear to auscultation and percussion. No rales, rhonchi or wheezes noted. No increased work of breathing, no retractions or nasal flaring. Skin: Warm, dry with normal turgor. Normal color with no rashes, no lesions, and no evidence of cellulitis. MS/ Extremity: Pulses equal, no cyanosis. Neurovascular intact. Full, normal range of motion. Neuro: Awake and alert, GCS 15, oriented to person, place, time, and situation. Cranial nerves II-XII grossly intact. Motor strength 5/5 in all extremities. Sensory grossly intact. Cerebellar exam normal. Normal gait. 01:25 Psych: Behavior/mood is cooperative, anxious, Affect is animated, Oriented to person, place, time, Patient has no thoughts/intents to harm self or others. Memory is normal. Delusions/hallucinations are present and described as See HPI. Vital Signs: 00:19 BP 116 / 83; Pulse 106; Resp 20; Temp 97.0; Pulse Ox 99% on R/A; Weight 72.12 kg; da3 Height 5 ft. 3 in. (160.02 cm); 00:19 Body Mass Index 28.17 (72.12 kg, 160.02 cm) da3 MDM: 01:25 Data reviewed: vital signs, nurses notes, and as a result, I will discharge patient. jr8 Data interpreted: Pulse oximetry: on room air is 99 %. Interpretation: normal. Counseling: I had a detailed discussion with the patient and/or guardian regarding: the historical points, exam findings, and any diagnostic results supporting the discharge/admit diagnosis, the need for outpatient follow up, a psychiatrist, to return to the emergency department if symptoms worsen or persist or if there are any questions or concerns that arise at home. ED course: Patient expresses that she is not suicidal or homicidal. [facility] for her continued psychiatric problems. Patient remains hemodynamically stable. No acute findings on physical exam. Will discharge home to follow-up with her psychiatrist.. 01:28 Patient medically screened. jr8 Administered Medications: No medications were administered Disposition: 05:51 Co-signature as Attending Physician, David Brown MD. [email or web address] Disposition Summary: 10/01/21 01:28 Discharge Ordered Location: Home jr8 Problem: new jr8 Symptoms: have improved jr8 Condition: Stable jr8 Diagnosis - Generalized anxiety disorder jr8 - Auditory hallucinations jr8 Followup: jr8 - With: Private Physician - When: 2 - 3 days - Reason: Recheck today's complaints, Continuance of care, Re-evaluation by your physician Discharge Instructions: - Discharge Summary Sheet jr8 - Generalized Anxiety Disorder, Adult jr8 Forms: - Medication Reconciliation Form jr8 - Thank You Letter jr8 - Antibiotic Education jr8 - Prescription Opioid Use jr8 Signatures: Guanako Palomino PA PA jr8 David Brown MD MD 7 [place] Quesada RN RN da3 Corrections: (The following items were deleted from the chart) 01:26 01:25 This is a 51-year-old female that presented to the emergency room with complaints jr8 of anxiety. Patient has been seen multiple times in the last couple weeks with the same symptoms. Patient has psychiatric history and has been having auditory and visual hallucinations. She is currently not a harm to herself as she denies suicidal ideations or homicidal ideations. Patient is currently alert and oriented to person place time and event.. jr8
--- NOTE | 2021-10-01 01:28 | ER ---
Nurse's Notes [facility] Name: Tiffany Quinn Age: 51 yrs Sex: Female : 1970 Arrival Date: 10/01/2021 Time: 00:15 Bed DIS2 Private MD: Diagnosis: Generalized anxiety disorder;Auditory hallucinations Presentation: 10/01 00:19 Chief complaint: Patient states: anxiety. Coronavirus screen: Vaccine status: Patient da3 reports receiving the 2nd dose of the covid vaccine. Ebola Screen: No symptoms or risks identified at this time. Risk Assessment: Do you want to hurt yourself or someone else? Patient reports no desire to harm self or others. 00:19 Method Of Arrival: Ambulatory da3 00:19 Acuity: MANUEL 4 da3 Triage Assessment: 00:23 General: Appears in no apparent distress. comfortable, Behavior is calm, cooperative, da3 appropriate for age. - Immunization history:: Client reports receiving the 2nd dose of the Covid vaccine. Assessment: 01:47 Reassessment: pt not seen by this RN discharged by Guanako WHITTAKER. bb Vital Signs: 00:19 BP 116 / 83; Pulse 106; Resp 20; Temp 97.0; Pulse Ox 99% on R/A; Weight 72.12 kg; da3 Height 5 ft. 3 in. (160.02 cm); 00:19 Body Mass Index 28.17 (72.12 kg, 160.02 cm) da3 ED Course: 00:15 Patient arrived in ED. bp1 00:22 Triage completed. da3 01:19 [facility] jr8 01:19 David Brown MD is Attending Physician. jr8 Administered Medications: No medications were administered Outcome: 01:28 Discharge ordered by . jr8 01:47 Patient left the ED. bb Signatures: Keena Lazaro RN RN Guanako Grady PA PA jr8 [place], Brittany [facility] Salinas Quesada RN RN da3
[2021-10-01 01:59] VITALS: BP 116/83; TEMP 97; O2SAT 99
== END 2021-10-01 01:47 | disposition home or self-care (01) ==
LOC: ER 00:10
DX: F41.1 Generalized anxiety disorder (principal)
CPT/HCPCS: 99281

== ENCOUNTER → 2021-10-04 | Emergency (ER) | payer OTHER ==
[2012-06-30 14:08] VITALS: BP 140/91
--- OUTSIDE RECORDS SUMMARY | 2021-10-04 21:46 | XMS REPORT | Continuity of Care Document ---
:1970 Author Organization [facility] t Address [address] [place] [address] Care Team Providers Name Role Phone UNKNOWN [...] Policy Number Effective Date Expiration Date S [facility] OF [place] - [id number] 2020 [place] 00:00:00 (MEDICARE REPLACEMENT/ADVANT AGE - HMO) Problems Condition Condition Condition Status Onset Resolution Last Treating Co mments Source Name Details Category Date Date Treatment Clinician Date LOW PB Diagnosis Active 2019-01-22 Mem oria 01-21 01:52:00 l LOW PB 00:00: Yonis 00 Active 01/21/2019 [place] INFECTIOUS Diagnosis Active 2019-02-06 Memoria GASTROENTE 01-21 08:58:00 l RITIS AND 00:00: [place] COLITIS INFECTIOUS 00 GASTROENTE RITIS AND COLITIS Active 01/21/2019 [facility] Irregular Irregular Disease Active Uni vers menstrual menstrual 8-15 ity of cycle cycle 00:00: [address] Skin Skin Disease Active Univers lesion lesion 8-15 ity of 00:00: [address] Psychiatri Psychiatri Disease Active U nivers c disorder c disorder 8-15 it y of 00:00: [address] Well woman Well woman Disease Active U nivers exam with exam with 8-15 ity of routine routine 00:00: [place] gynecologi gynecologi 00 Me dical nicky exam nicky exam Branch INFECTIOUS Diagnosis Active 2019-02-06 Memoria GASTROENTE 08:58:00 l RITIS AND Yonis COLITIS, INFECTIOUS GASTROENTE RITIS AND COLITIS, Active [facility] Allergies, Adverse Reactions, Alerts Allergy Allergy Status Severity Reaction(s) Onset Inactive Treating Comm ents Source Name Type Date Date Clinician Phenerga Phenerga Active Memori a n n l Yonis NO KNOWN Drug Active Univers ALLERGIE Class ity of S [facility] Social History Social Habit Start Date Stop Date Quantity Comments Source History of Cigarette Smoker Universi ty of tobacco use [facility] Tobacco Comment 2-3 cigs a day [facility] Exposure to Not sure [place] of SARS-CoV-2 [facility] (event) [place] Tobacco use and 2016-06-08 2016-06-08 [facility] 00[facility]00:00 [facility] Alcohol intake 2016-06-08 2016-06-08 0 /d University of 00:00:00 00:00:00 [facility] Sex Ass[birth year] At [birth year] Universit y of 00:00:00 00:00:00 [facility] Smoking Status Start Date Stop Date Source Social History 2019-01-22 05:00:12 [facility] Her urena Current some day smoker 2016-06-08 00:00:00 [facility] Medications Ordered Filled Start Stop Current Ordering Indication Dosage Frequency Signature Comments Components Source Medication Medication Date Date Medication? Clinician (SIG) Name Name cefTRIAXone 2020-10- No 1000mg 1,000 mg, Univers (ROCEPHIN) 17 11-17 IV ity of 1,000 mg in 08:30: 08:01 [place], [place] NaCl 0.9% 00 :00 ONCE, 1 [...] injection 4 00 :00 dose, On Medi nikcy mg Wed Branch 09/10/21 at 0045, RANDA NaCl 0.9% 2020-10 No 1000mL at 999 Uni vers (NS) bolus 11-10 mL/hr, ity of infusion 05:30: 05:30 1,000 mL, Joe as 1,000 mL 00 :00 IV Medical Infusion, Branch ONCE, 1 dose, On 09/09/21 at 2330, RANDA amoxicillin 2020-10 Yes [id number] 500mg Take 1 Univers 500 mg 11-10 capsule by ity of capsule 00:00: mouth 3 [place] 00 (three) Medical times Branch daily. ondansetron 2019-10- No 4mg 4 mg, [facility] ers (ZOFRAN-ODT 12-01 Oral, ity of ) 15:15: 14:16 ONCE, 1 [place] disintegrat 00 :00 dose, Mon Med ical ing tablet 09/30/20 at [facility] 4 mg 0915, Routine ondansetron 2019-10- No 4mg 4 mg, [facility] ers (ZOFRAN-ODT 12-01- Oral, ity of ) 14:30: 13:32 ONCE, 1 [place] disintegrat 00 :00 dose, Mon Med ical ing tablet 09/30/20 at [facility] nc 4 mg 0830, Routine ondansetron 2019-10 Yes [id number] 4mg Take 1 Univers 4 mg 2-07 tablet by ity of disintegrat 00:00: mouth [place] ing tablet 00 every 8 Medica l (eight) Branch hours as needed for Nausea and Vomiting (N/V). ondansetron 2019-10 Yes [id number] 4mg Take 1 Univers 4 mg 2-07 tablet by ity of disintegrat 00:00: mouth [place] ing tablet 00 every 8 Medica l (eight) Branch hours as needed for Nausea and Vomiting (N/V). ondansetron 2019-10 Yes [id number] 4mg Take 1 Univers 4 mg 2-07 tablet by ity of disintegrat 00:00: mouth [place] ing tablet 00 every 8 Medica l (eight) Branch hours as needed for Nausea and Vomiting (N/V). ondansetron 2019-10 Yes [id number] 4mg Take 1 Univers 4 mg 2-07 tablet by ity of disintegrat 00:00: mouth [place] ing tablet 00 every 8 Medica l (eight) Branch hours as needed for Nausea and Vomiting (N/V). ciprofloxac 2019 Yes 500 mg = 1 Memoria in 500 mg 4-04 tab, PO, l oral tablet 17:35: [id number], X Yonis 00 4 day, # 8 [...] 4-04 tab, PO, l oral tablet 17:35: [id number], X [place] 00 4 day, # 8 tab, 0 [...] 4-03 (Same as: l 13:26: K-Dur 20) [place] "Do Not Crush" Give with food and [...] moria 402 Route: PO, l 14:00: QAM, [place] 00 Dosing Weight 75, kg, Start date: [...] Memoria 4- (Same as: l 15:00: Flagyl) [place] 00 Take with food/ avoid alcohol Cipro No Notes: February Memori a 4- interfere l 15:00: w/enteral [place] 00 feedings - Take 1 hr before [...] PO, ONCE, l mEq oral 14:20: 0 [place] tablet, 00 Refill(s) extended release Metronidazo No 500 mg, Mem oria le 500 MG 4-01 PO, l Oral Tablet 14:20: [id number], 0 [place] [Flagyl] 00 Refill(s) Ciprofloxac No 500 mg, Mem oria in 500 MG 01 PO, l Oral Tablet 14:20: [id number], 0 [place] [Cipro] 00 Refill(s) potassium Yes 40 mEq, Memor ia chloride 20 -01 PO, ONCE, l mEq oral 14:20: 0 [place] tablet, 00 Refill(s) extended release Metronidazo No 500 mg, Mem oria le 500 MG 4-01 PO, l Oral Tablet 14:20: [id number], 0 H [place] [Flagyl] 00 Refill(s) Ciprofloxac No 500 mg, Mem oria in 500 MG 4-01 PO, l Oral Tablet 14:20: [id number], 0 Yonis [Cipro] 00 Refill(s) Potassium No [...] tab, PO, l Tablet 21:08: BID, 0 [place] [Risperdal] 00 Refill(s) Strattera Yes 0.5 mg/kg, [...] tab, PO, l Tablet 21:08: BID, 0 [place] [Risperdal] 00 Refill(s) Zosyn No Notes: Memoria [...] oria 3-31 to exceed l 15:03: 400mg/day. [place] 00 (Same As: Ultram) Tramadol No Notes: [...] 01-22 Route: IM, l 09:47: Drug form: [place] 00 PDR/INJ, PRN, Dosing Weight 75.994, kg, [...] 01-22 Route: IM, l 09:47: Drug form: [place] PDR/INJ, PRN, Dosing Weight 75.994, kg, PRN Blood Glucose Results, Start date: 01/22/19 4:47:00 CDT, Duration: 30 day, Stop date: 02/21/19 4:46:00 CDT Dextrose 2018- No 12.5 gm, Memor ia 50% Syringe 3-31 25 mL, l 09:47: Route: [place] 00 IVP, Drug Form: INJ, Dosing Weight [...] moria IV 3-31 1,000 l 08:52: ml/hr, [place] 00 Infuse Over: 1 hr, Route: IV, [...] 0.9% 3-31 Same as: l 04:52: BD [place] Posiflush Sterile NS (Bolus) No 1,000 mL, Me moria IV 3-31 1,000 l 04:51: ml/hr, [place] 00 Infuse Over: 1 hr, Route: IV, 1,000, Drug form: INJ, ONCE, Priority: STAT, Dosing Weight 75.994 kg, Start date: 01/21/19 23:51:00 CDT, Stop date: 01/21/19 23:51:00 CDT NS (Bolus) No 1,000 mL, Me moria IV 01-22 1,000 l 04:51: ml/hr, [place] 00 Infuse Over: 1 hr, Route: IV, [...] 8-15 mouth. ity of E 19:02: [place] (CITALOPRAM 27 Medical ORAL) Branch ibuprofen 2016-0 Yes 200mg Take 200 Uni vers (ADVIL) 200 8-15 mg by ity of mg tablet 14:02: mouth [place] [id number] every 6 Medical (six) Branch hours as needed. CLONAZEPAM 2016-0 Yes Take by Uni vers (KLONOPIN 8-15 mouth. ity of ORAL) 14:02: [address] Branch CITALOPRAM 2016-0 Yes Take by Uni vers HYDROBROMID 8-15 mouth. ity of E 14:02: [place] (CITALOPRAM 27 Medical ORAL) Branch ibuprofen 2016-0 Yes 200mg Take 200 Uni vers (ADVIL) 200 8-15 mg by ity of mg tablet 14:02: mouth [place] [address] every 6 Medical (six) Branch hours as needed. CLONAZEPAM 2016-0 Yes Take by Uni vers (KLONOPIN 8-15 mouth. ity of ORAL) 14:02: [address] Branch CITALOPRAM 2016-0 Yes Take by Uni vers HYDROBROMID 8-15 mouth. ity of E 14:02: [place] (CITALOPRAM 27 Medical ORAL) Branch ibuprofen 2016-0 Yes 200mg Take 200 Uni vers (ADVIL) 200 8-15 mg by ity of mg tablet 14:02: mouth [place] [address] every 6 Medical (six) Branch hours as needed. CLONAZEPAM 2016-0 Yes Take by Uni vers (KLONOPIN 8-15 mouth. ity of ORAL) 14:02: [place] [address] Medical Branch CITALOPRAM 2016-0 Yes Take by Uni vers HYDROBROMID 8-15 mouth. ity of E 14:02: [place] (CITALOPRAM 27 Medical ORAL) Branch misoprostol 2016-0 [...] it y of en-caff 00:00: PRN. [place] (ESGIC) 00 Medical 50-325-40 Branch mg tablet butalbital- 2015-0 Yes TK 1 TO 2 U nivers acetaminoph 8-01 T PO Q 8 H it y of en-caff 00:00: PRN. [place] (ESGIC) 00 Medical 50-325-40 Branch mg tablet butalbital- 2015-0 Yes TK 1 TO 2 U nivers acetaminoph 8-01 T PO Q 8 H it y of en-caff 00:00: PRN. [place] (ESGIC) 00 Medical 50-325-40 Branch mg tablet butalbital- 2016-0 Yes TK 1 TO 2 U nivers acetaminoph 8-01 T PO Q 8 H it y of en-caff 00:00: PRN. [place] (ESGIC) 00 Medical 50-325-40 Branch mg tablet dextroamphe 0 Yes TK 1 T PO U nivers tamine-amph 7-20 BID. ity of etamine 00:00: [place] (ADDERALL) 00 Medical 20 mg Branch tablet dextroamphe Yes TK 1 T PO U nivers tamine-amph 7-20 BID. ity of etamine 00:00: [place] (ADDERALL) 00 Medical 20 mg Branch tablet dextroamphe Yes TK 1 T PO U nivers tamine-amph 7-20 BID. ity of etamine 00:00: [place] (ADDERALL) 00 Medical 20 mg Branch tablet [...] 2021-09-10 08:01:00 138 mm[Hg] Univer sity of [facility] Diastolic blood 2021-09-10 08:01:00 97 mm[Hg] Unive rsity of [facility] Heart rate 2021-09-10 08:01:00 87 /min [facility] Respiratory rate 2021-09-10 08:01:00 20 /min [facility] O[facility] saturation in 2021-09-10 08:01:00 98 /min University of Arterial blood by [place] [facility] Pulse oximetry Branch Body temperature 2021-09-10 04:28:51 37.17 Ruthann [facility] Body height 2021-09-10 04:26:00 154.9 cm [facility] Body weight 2021-09-10 04:26:00 81.647 kg [facility] BMI 2021-09-10 04:26:00 34.01 kg/m2 [facility] Systolic blood 2021-09-09 20:06:00 150 mm[Hg] Univer sity of [facility] Diastolic blood 2021-09-09 20:06:00 89 mm[Hg] Unive rsity of [facility] Heart rate 2021-09-09 20:06:00 108 /min [facility] Body temperature 2021-09-09 20:06:00 37.22 Ruthann [facility] Respiratory rate 2021-09-09 20:06:00 18 /min [facility] Oxygen saturation in 2021-09-09 20:06:00 99 /min University of Arterial blood by Datical nicky Pulse oximetry Branch Body weight 2021-09-09 20:05:00 81.647 kg Universi ty of [place] [facility] BMI 2021-09-09 20:05:00 32.40 kg/m2 Universi ty of [place] [facility] Systolic blood 2020-09-30 14:00:00 126 mm[Hg] Univer sity of pressure [place] [facility] Diastolic blood 2020-09-30 14:00:00 84 mm[Hg] Unive rsity of pressure [place] [facility] Heart rate 2020-09-30 14:00:00 79 /min Universi ty of [place] [facility] Oxygen saturation in 2020-09-30 14:00:00 98 /min University of Arterial blood by [facility] nicky Pulse oximetry Branch Body temperature 2020-09-30 13:26:00 37.22 Ruthann Univ ersity of [place] [facility] Respiratory rate 2020-09-30 13:26:00 16 /min Univ ersity of [place] [facility] Body weight 2020-09-30 13:26:00 72.576 kg Universi ty of [place] [facility] BMI 2020-09-30 13:26:00 28.80 kg/m2 Universi ty of [place] [facility] Systolic blood 2020-09-30 14:00:00 126 mm[Hg] Univer sity of pressure [place] [facility] Diastolic blood 2020-09-30 14:00:00 84 mm[Hg] Unive rsity of pressure [place] [facility] Heart rate 2020-09-30 14:00:00 79 /min Universi ty of [place] [facility] Oxygen saturation in 2020-09-30 14:00:00 98 /min University of Arterial blood by [facility] nicky Pulse oximetry Branch Body temperature 2020-09-30 13:26:00 37.22 Ruthann Univ ersity of [place] [facility] Respiratory rate 2020-09-30 13:26:00 16 /min Univ ersity of [place] [facility] Body weight 2020-09-30 13:26:00 72.576 kg Universi ty [facility] [place] [facility] BMI 2020-09-30 13:26:00 28.80 kg/m2 Universi ty of [place] [facility] Temperature Oral (F) 2019-01-28 01:16:00 98.6 F [facility] Yon[place] Systolic (mm Hg) 2019-01-28 01:16:00 Estrada rial [place] Diastolic (mm Hg) 2019-01-28 01:16:00 Mem orial [place] Heart Rate 2019-01-28 01:16:00 [facility] [place] Respitory Rate 2019-01-28 01:16:00 Memori al [place] Systolic (mm Hg) 2019-01-27 20:42:00 Estrada rial [place] Diastolic (mm Hg) 2019-01-27 20:42:00 Mem orial Yonis Heart Rate 2019-01-27 20:42:00 [facility] [place] Respitory Rate 2019-01-27 20:42:00 Memori al [place] Temperature Oral (F) 2019-01-27 20:42:00 98.5 F [facility] [place] Systolic (mm Hg) 2019-01-27 17:00:00 Estrada rial Yonis Diastolic (mm Hg) 2019-01-27 17:00:00 Mem orial [place] Temperature Oral (F) 2019-01-27 17:00:00 98.5 F [facility] [place] Heart Rate 2019-01-27 17:00:00 [facility] [place] Respitory Rate 2019-01-27 17:00:00 [facility] [place] Height 2019-01-22 14:35:00 157.48 cm [facility] BMI Calculated 2019-01-22 14:35:00 [facility] [place] Weight 2019-01-22 14:35:00 [facility] [place] Weight 2019-01-22 04:34:00 [facility] Procedures Procedure Date / Time Performing Clinician Source Performed URINALYSIS 2021-09-10 06:03:00 Neena Rogers [facility] URINE DRUG (IMMUNOASSAY) 2021-09-10 06:03:00 Neena Rogers [facility] SCREEN W/O REFLEX XR CHEST 1 VW 2021-09-10 04:57:30 Neena Rogers [facility] CREATINE KINASE 2021-09-10 04:39:00 Neena Rogers [facility] MAGNESIUM 2021-09-10 04:39:00 Neena Rogers [facility] TROPONIN I 2021-09-10 04:39:00 Neena Rogers [facility] COMP. METABOLIC PANEL 2021-09-10 04:39:00 Neena Rogers [facility] ([id number]) Medical [place] CBC WITH DIFF 2021-09-10 04:39:00 Neena Rogers [facility] PROTHROMBIN TIME / INR 2021-09-10 04:39:00 Neena Rogers [facility] ACTIVATED PARTIAL 2021-09-10 04:39:00 Neena Rogers [facility] THRMPLAS [facility] N-TERMINAL PRO-BNP 2021-09-10 04:39:00 Neena Rogers [facility] COVID-19 (ID NOW RAPID 2021-09-10 04:39:00 Ne[facility] Rogers [facility] TESTING) Medical Branch TROPONIN I 2021-09-09 21:49:00 [facility] COMP. METABOLIC PANEL 2021-09-09 21:49:00 [facility] Luanne [facility] ([id number]) Medical Branch LITHIUM 2021-09-09 21:49:00 [facility] CBC WITH DIFF 2021-09-09 21:49:00 [facility] CONSENT/REFUSAL FOR 2021-09-09 19:51:22 Doctor Unassigned, No Un [facility] DIAGNOSIS AND TREATMENT Name [facility] Branch URINALYSIS 2020-09-30 13:27:00 Jackson, [facility] ADC,CLC OR LCC ONLY - 2020-09-30 13:27:00 JacksonChuy aleman [facility] INFLUENZA A & B DIRECT Medical B ranch ANTIGEN COVID-19 (ID NOW RAPID 2020-09-30 13:27:00 [facility] Chuy [facility] TESTING) Medical Branch Encounters Start End Encounter Admission Attending Care Care Encounter Source Date/Time Date/Time Type Type Clinicians Facility Department ID 2019-01-22 Inpatient E [facility] MED [id number] [facility] W 04:39:00 2021-09-09 2021-09-10 Emergency DENIA Rogers [id number] Univers 22:20:00 03:02:00 Neena JIMENEZ [id number] i ty of [place] 4.2.7.2.686 [facility] [id number] [facility] nicky 084 Branch 2021-09-09 2021-09-10 Emergency X DENIA ROGERS ERT [id number] Univers 22:20:00 03:02:00 NEENA tubbs [facility] 2021-09-09 2021-09-10 Emergency X [facility] ERT [id number] Univers 22:20:00 03:02:00 NEENA tubbs [facility] 2021-09-09 2021-09-09 Emergency Julia [facility] [id number] Univers 14:07:00 17:35:00 Luanne JIMENEZ [id number] i ty of [place] 4.2.7.2.686 [facility] [id number] [address] 2021-09-09 2021-09-09 Orders Doctor BELKYS [id number] Univers 00:00:00 00:00:00 Only Unassigned, LANA 350.1.13.10 ity of [place] [facility] 4.2.7.2.686 [facility] [id number] [address] 2020-09-30 2020-09-[address] [facility] [id number] 07:22:00 08:18:00 Chuy Jimenez 350.1.13.10 [place] 4.2.7.2.686 [place] [id number] [facility] 2020-09-30 2020-09-[address] [facility] [id number] Univers 07:22:00 08:18:00 Chuy Jimenez 350.1.13.10 i ty of [place] 4.2.7.2.686 [facility] [id number] [address] 2020-09-30 2020-09-[address] [facility] ERT [id number] Univers 07:22:00 07:22:00 CHUY tubbs [facility] 2020-04-05 2020-04-05 Outpatient Humaira-Mbayo VFP [facility] [address] [place] [address] 05:44:00 05:44:00 _A_AH 07899 Family Practic e 2020-04-05 2020-04-05 Outpatient Humaira-Mbayo VFP VFP [address] 05:44:00 05:44:00 _A_AH 24191 Family Practic e 2020-04-05 2020-04-05 Outpatient Humaira-Alekso VFP VFP [id number] [facility] 05:44:00 05:44:00 _A_AH 82174 Family Practic e 2020-04-05 2020-04-05 Outpatient Humaira-Alekso VFP VFP [id number] [id number] [facility] 05:44:00 05:44:00 _A_ [id number] Family Practic e 2020-03-04 2020-03-14 Inpatient 3 Ronni Eldridge [facility] PSY [id number] 15:38:00 15:25:00 [facility] 2019-12-13 2019-12-13 Outpatient Humaira-Alekso VFP VFP 79[facility]202 [facility] 07:22:00 07:22:00 _A_AH 48874 Family Practic e 2019-01-22 2019-01-28 Inpatient [facility] [id number] Memoria 04:33:00 04:40:00 martin Somers 00 l [facility] 2018-02-21 2018-02-20 [facility] [id number] 14:48:00 13:18:00 [facility] Results Test Description Test Time Test Comments Results Result Comments Source TROPONIN I 2021-09-10 05:26:53 Test Item Value Reference Range Interpretation Comme nts TROPONIN I (test code = 0.003 ng/mL See_Comment [Au tomated message] The [id number]) system which ge nerated this result tra [...] biotin. Lab Interpretation Normal (test code = 32579-1) [facility] [id number] 05:24:16 Test Item Value Reference Range Interpretation Comments NT-proBNP (test code 35 pg/mL See_Comment [Autom ated = 3660342167) message] The system which generated this result transmitted reference range : <=125. The reference range was not used to interpret this result as normal/abnormal . PERRY (test code = PERRY) Biotin has been reported to cause a negative bias, interpret results relative to patient's use of biotin. Lab Interpretation Normal (test code = 40698-4) [facility]2021-[facility]-17 05:16:51 Test Item Value Reference Range Interpretation Comments MAGNESIUM (test code = 1079423479) 1.8 mg/dL 1.7-2.4 Lab Interpretation (test code = Normal 40753-2) [facility] PAN[facility] (45292)2021-09-10 05:16:31 Test Item Value Reference Range Interpretation Comments NA (test code = 139 mmol/L 135-145 2545532499) K (test code = 4.0 mmol/L 3.5-5.0 3032718578) CL (test code = 108 mmol/L 98-108 1397697076) CO2 TOTAL (test code 25 mmol/L 23-31 = 3681119245) AGAP (test code = 2-16 2575498303) BUN (test code = 14 mg/dL 7-23 7093850252) GLUCOSE (test code = 88 mg/dL 70-110 2300152024) CREATININE (test code 0.89 mg/dL 0.50-1.04 = 2116899562) TOTAL BILI (test code 0.5 mg/dL 0.1-1.1 = 6452543227) CALCIUM (test code = 10.3 mg/dL 8.6-10.6 7206724058) T PROTEIN (test code 6.9 g/dL 6.3-8.2 = 2857572073) ALBUMIN (test code = 4.3 g/dL 3.5-5.0 7752754052) ALK PHOS (test code = 72 U/L 34-122 6757073401) ALTv (test code = 17 U/L 35 1742-6) AST(SGOT) (test code 29 U/L 13-40 = 7631845535) eGFR (test code = mL/min/1.73m2 0901739721) PERRY (test code = PERRY) Association of [...] or urine or abnormalities in imaging tests). [facility] Center[facility]AT[facility] [id number] 05:16:16 Test Item Value Reference Range Interpretation Comments CK (test code = 6010065127) 267 U/L 33-194 H Lab Interpretation (test code = Abnormal 45310-8) [facility] THRMPLAS [id number] 05:05:32 Test Item Value Reference Range Interpretation Comments APTT Patient (test See_Comment [Automat ed code = 3173-2) message] The system which generated this result transmitted reference range : 23 - 38 Seconds . The reference range was not used to interpr et this result as normal/abnormal . PERRY (test code = PERRY) [facility] patient population mean normal value for aPTT is 30 seconds. Lab Interpretation Normal (test code = 32477-9) [facility] CenterPROT[facility] TIME / [id number] 05:03:30 Test Item Value Reference Range Interpretation [...] tions. Lab Interpretation (test Normal code = 54028-0) [facility] CenterCB WITH [id number] 04:57:13 Test Item Value Reference Range Interpretation Comments WBC (test code = See_Comment [Automated 5090-2) message] The sy stem which generated this result transmitted reference range : 4.30 - 11.10 10*3/?L. The reference range was not used to interpret this result as normal/abnormal . RBC (test code = See_Comment [Automated 659-8) message] The sy stem which generated this [...] RDW-SD (test code = 41.2 fL 39.0-49.9 33050-1) RDW-CV (test code = 13.0 % 12.0-15.5 788-0) PLT (test code = See_Comment H [Automated 777-3) message] The sy stem which generated this result transmitted reference range : 166 - 358 10*3/ ?L. The reference r katie was not used to interpret this result as normal/abnormal . MPV (test code = 9.6 fL 9.5-12.9 53553-1) NRBC/100 WBC (test See_Comment [Automat ed code = 4928128463) message] The system which generated this result transmitted reference range : 0.0 - 10.0 /100 WBCs. The refer ence range was not u sed to interpret th is result as normal/abnormal . NRBC x10^3 (test code <0.01 See_Comment [Auto mated = 8098662904) message] The s ystem which generated this result transmitted reference range : 10*3/?L. The reference range was not used to interpret this result as normal/abnormal . GRAN MAT (NEUT) % 61.9 % (test code = 770-8) IMM GRAN % (test code 0.30 % = 9474684602) LYMPH % (test code = 26.0 % 736-9) MONO % (test code = 9.5 % 5905-5) EOS % (test code = 1.6 % 713-8) BASO % (test code = 0.7 % 706-2) GRAN MAT x10^3(ANC) 5.91 10*3/uL 1.88-7.09 (test code = 7625794456) IMM GRAN x10^3 (test 0.03 10*3/uL 0.00-0.06 code = 2353881407) LYMPH x10^3 (test code 2.48 10*3/uL 1.32-3.29 = 731-0) MONO x10^3 (test code 0.91 10*3/uL 0.33-0.92 = 742-7) EOS x10^3 (test code = 0.15 10*3/uL 0.03-0.39 711-2) BASO x10^3 (test code 0.07 10*3/uL 0.01-0.07 = 704-7) Lab Interpretation Abnormal (test code = 76139-2) [facility] CenterJESSICA [id number] 22:24:55 Test Item Value Reference Interpretation Comments Range TROPONIN I (test 0.002 ng/mL See_Comment [Automated code = 2392667028) message] The system which generated this result [...] biotin. Lab Interpretation Normal (test code = 93102-6) [facility]2021-[facility]-16 22:24:34 Test Item Value Reference Range Interpretation Comments [place] (test code = <0.2 0.6-1.2 L 8400086735) PERRY (test code = PERRY) Toxic Range: ? Greater than 1.2 mmol/L Lab Interpretation (test Abnormal code = 93938-1) [facility] CenterCOM. METABOLIC PANEL (13016)2021-09-09 22:13:54 Test Item Value Reference Range Interpretation Comments NA (test code = 139 mmol/L 135-145 4750631360) K (test code = 4.0 mmol/L 3.5-5.0 4721163715) CL (test code = 105 mmol/L 98-108 6530460847) CO2 TOTAL (test code 26 mmol/L 23-31 = 5861946458) AGAP (test code = 2-16 7825558414) BUN (test code = 11 mg/dL 7-23 6023278317) GLUCOSE (test code = 109 mg/dL 70-110 3231724243) CREATININE (test code 0.71 mg/dL 0.50-1.04 = 2792909780) TOTAL BILI (test code 0.6 mg/dL 0.1-1.1 = 3611747866) CALCIUM (test code = 10.4 mg/dL 8.6-10.6 7024637623) T PROTEIN (test code 7.6 g/dL 6.3-8.2 = 4744298532) ALBUMIN (test code = 4.7 g/dL 3.5-5.0 7856760270) ALK PHOS (test code = 78 U/L 34-122 1490120280) ALTv (test code = 19 U/L 5-35 1742-6) AST(SGOT) (test code 28 U/L 13-40 = 8216203030) eGFR (test code = mL/min/1.73m2 3462935321) PERRY (test code = PERRY) Association of [...] in imaging tests). [facility] WITH LSJH3774-27-69 22:03:32 Test Item Value Reference Range Interpretation Comments WBC (test code = See_Comment [Automated 3490-2) message] The sy stem which generated this [...] RDW-SD (test code = 40.2 fL 39.0-49.9 01628-3) RDW-CV (test code = 12.9 % 12.0-15.5 788-0) PLT (test code = See_Comment H [Automated 777-3) message] The sy stem which generated this result transmitted reference range : 166 - 358 10*3/ ?L. The reference r katie was not used to interpret this result as normal/abnormal . MPV (test code = 9.4 fL 9.5-12.9 L 57638-6) NRBC/100 WBC (test See_Comment [Automat ed code = 7855070903) message] The system which generated this result transmitted reference range : 0.0 - 10.0 /100 WBCs. The refer ence range was not u sed to interpret th is result as normal/abnormal . NRBC x10^3 (test code <0.01 See_Comment [Auto mated = 8394880723) message] The s ystem which generated this result transmitted reference range : 10*3/?L. The reference range was not used to interpret this result as normal/abnormal . GRAN MAT (NEUT) % 67.1 % (test code = 770-8) IMM GRAN % (test code 1.00 % = 0408761125) LYMPH % (test code = 21.4 % 736-9) MONO % (test code = 7.9 % 5905-5) EOS % (test code = 1.8 % 713-8) BASO % (test code = 0.8 % 706-2) GRAN MAT x10^3(ANC) 7.35 10*3/uL 1.88-7.09 H (test code = 4870271465) IMM GRAN x10^3 (test 0.11 10*3/uL 0.00-0.06 H code = 4058310674) LYMPH x10^3 (test code 2.34 10*3/uL 1.32-3.29 = 731-0) MONO x10^3 (test code 0.86 10*3/uL 0.33-0.92 = 742-7) EOS x10^3 (test code = 0.20 10*3/uL 0.03-0.39 711-2) BASO x10^3 (test code 0.09 10*3/uL 0.01-0.07 H = 704-7) Lab Interpretation Abnormal (test code = 75169-2) [facility] A & B DIRECT CFCUPTF7864-31-34 14:04:00 Test Item Value Reference Range Interpretation Comments Influenza A (test code = 95327-7) Negative Negative Influenza B (test code = 09929-2) Negative Negative Lab Interpretation (test code = Normal 72529-9) [facility] ([facility] NOW RAPID TESTING)2020-09-30 14:03:00 Test Item Value Reference Range Interpretation Comments SARS-CoV-2 Rapid ID NOW Not Detected Not Detected (test code = 01406-1) PERRY (test code = PERRY) ID NOW COVID-19 Assay is an isothermal nucleic acid amplification test intended for the qualitative detection of nucleic acid from SARS-CoV-2 viral RNA in nasopharyngeal ([employer] COUNSELOR) specimens. It is used under Emergency Use [...] indicated. Lab Interpretation Normal (test code = 28920-7) [facility]2020[facility] 13:55:00 Test Item Value Reference Range Interpretation Comments APPEARANCE (test code = Hazy Clear A 5092610550) COLOR (test code = Yellow Yellow 2352906782) PH (test code = 4.8-8.0 5430207582) SP GRAVITY (test code = 1.003-1.030 0002346412) GLU U QUAL (test code = Normal Normal 5579148864) BLOOD (test code = Negative Negative 3489390786) KETONES (test code = 5 mg/dL Negative A 3910407597) PROTEIN (test code = Negative Negative 2887-8) UROBILIN (test code = 2.0 mg/dL Normal A 8535959542) BILIRUBIN (test code = Negative Negative 8588681771) NITRITE (test code = Negative Negative 4414761554) LEUK ROZINA (test code = 25/uL Negative A 0827267733) RBC/HPF (test code = See_Comment [Autom ated message] 6289673503) The system [employer] generated this result transmit ngozi reference range : 0 - 3 HPF. The refe rence range was not u sed to interpret th is result as normal/abnormal . WBC/HPF (test code = See_Comment [Autom ated message] 5194451936) The system [employer] generated this result transmit ngozi reference range : 0 - 5 HPF. The refe rence range was not u sed to interpret th is result as normal/abnormal . BACTERIA (test code = Few Negative A 4884963989) MUCOUS (test code = Slight Negative LPF A 6518332770) SQ EPITH (test code = HPF 3522755711) Lab Interpretation (test Abnormal code = 23832-6) [facility] CenterRPR Woosuhosmby6187-17-63 16:42:24 Test Item Value Reference Range Interpretation [...] = 10-24-2020 N Expiration Dt) Thyroid Stimulating Suyopzn0566-58-04 08:35:16 Test Item Value Reference Range Interpretation Comments TSH (test code = TSH) 1.170 mIU/mL 0.270-4.200 Lipid Egcwk4557-48-52 08:21:19 Test Item Value Reference Range Interpretation Comments Cholesterol Total 254 mg/dL 0-200 H RISK OF HE ART (test code = DISEASEPublishe d by Cholesterol Total) [place] [facility] [employer] Cathie lyte Optimal Borderl ine [...] calculation is LDL/HDL Ratio=L DL Calc/HDL Chol QQGDJCOSCSQU1420-51-86 08:24:008.6[facility] LglpfxxBNHUBSYMSJKZ2970-03-08 08:24:23892Onghbuid OhqdlaqHEBICLCWACAN8815-34-67 08:24:0027[facility] WKXAAZRZFBHG8179-51-09 08:24:12567Adsobyiw XkuwbetCTHQDZWARYKZ9822-65-57 08:24:003.6[facility] OrvpqarUYHUDOPXMTOY9633-58-36 08:24:000.70[facility] NCBXNVKICPZD1768-85-71 08:24:008.4[facility] GnqykqdZIVPIRLVUNUB1096-13-77 08:24:87943Rcuvnvsv NrqrqewPLIORVIDGOZN1369-34-03 08:24:0086[facility] IIBRTSXDQEGF7716-24-47 08:24:006[facility] AdrbnodDFAPKURNTV8389-87-18 08:24:00 11.6[facility] GutfglbEBOUITMFNW6989-40-47 08:24:003.78[facility]annHEMATOLOGY 2019-01-26 08:24:0013.3[facility] ZdouwhdMEPCXDWJWC8258-12-78 08:24:0034.0[facility] TbldkadYRMJTIPVEN6057-65-36 08:24:006.3[facility] HgbdzsvOQRNXORHTR9005-50-13 08:24:00 Test Item Value Reference Range Interpretation Comments MCH (test code = MCH) 30.7 pg 27.0-31.0 [facility] JxwpeyrUVMOOJFPMZ5079-99-29 08:24:0090.3[facility]annHEMATOLOGY 2019-01-26 08:24:0034.2[facility] VgucsqkDELPEMICBL2749-19-87 08:24:94909Iblplepa BzkihhaEEPWVTZZGD9666-22-07 08:24:007.5[facility] ChlhopyLTASYZWTEEJI4935-01-59 08:24:008.6[facility] HpvieogJDZYXIFLJGWE8783-27-01 08:24:12496Dvsplnwb Y[facility] ONFZRHNNJTBT6973-14-15 08:24:0027[facility] WhtgunpPQWQTSRFIWFX7800-43-11 08:24:00 139[facility] TxsvueqDSVODRJTLCLA2406-43-52 08:24:003.6[facility] PDWIGTDZONBU8017-30-55 08:24:000.70[facility] VfyevzcWUYACKLXWHEI2455-80-18 08:24:008.4[facility] SmtoogpIELYBDMBXTBD2475-35-36 08:24:89278Izfxbbkt [facility] YHPKXHUCLHTX7633-63-43 08:24:0086[facility] JdwerbyZDZTHLYEZEID8232-48-77 08:24:00 6[facility] JqnigwdVWHOWCZYKK8563-04-94 08:24:0011.6[facility]annHEMATOLOGY 2019-01-26 08:24:003.78[facility] QxrnphbUKYLBWNKGJ9567-84-23 08:24:0013.3[facility] CkkmpqjKQWAGEIBVW6387-22-62 08:24:0034.0[facility] VxvryxnQIQUCKFSDF3341-55-63 08:24:006.3[facility] IawuqphVPUKRFDFGK9302-93-44 08:24:00 Test Item Value Reference Range Interpretation Comments MCH (test code = MCH) 30.7 pg 27.0-31.0 [facility] ShlelapDLIVRRNAMK2580-55-07 08:24:0090.3[facility]annHEMATOLOGY 2019-01-26 08:24:0034.2[facility] BssakcwZRRBZXUUVR0564-89-10 08:24:11530Gnnjzinc MeqacavYCALMCDIKI4141-62-73 08:24:007.5[facility] HermannCHEM KJYTC4113-95-63 09:14:33829Ahophzgh HermannCHEM EUGED4011-86-58 09:14:008.5[facility]annCHEM HRDED6623-07-12 09:14:0013.3[facility]annCHEM XBKRR4443-77-67 09:14:0024 [facility]annCHEM HDREA1224-23-36 09:14:68212Wenykvhx HermannCHEM PANEL 2019-01-25 09:14:0081[facility]annCHEM SKOWQ0015-35-44 09:14:002[facility]annCHEM OISDX7843-56-42 09:14:003.3[facility]annCHEM NOVRB3071-70-04 09:14:000.60[facility]annCHEM BJBZU6472-80-46 09:14:86304Woswrcky HermannCHEM WRJOR3806-21-24 09:14:91188Dkbahdrz [facility]annCHEM KANCM2621-70-69 09:14:008.5 [facility]annCHE[facility] JVQYL6000-58-67 09:14:0013.3[facility]annCHEM PANEL 2019-01-25 09:14:0024[facility]annCHEM UEOAB1092-99-72 09:14:93540Naeosgih HermannCHEM LVNLG2968-03-79 09:14:0081[facility]annCHEM QBULR5356-93-80 09:14:002[facility]annCHEM UYCDD3090-34-79 09:14:003.3[facility]annCHEM FODUT1676-02-06 09:14:000.60[facility]annCHEM UMTXN6323-03-68 09:14:62582 [facility]annMOLECULAR BVTIJIWDSL4046-90-55 16:22:00Negative (01/23/19 11:22 AM)[facility]annMOLECULAR MPDXIAQELE4035-32-93 16:22:00Negative (01/23/19 11:22 AM)[facility]annCHEM ZLFYR7050-65-10 15:42:002.76[facility]annCHEM PANEL 2019-01-23 15:42:002.76[facility]annCHEM ZIBJB3010-17-92 12:32:000.9[facility]annCHEM HRSNS8003-38-95 12:32:000.9[facility]annCHEM PIXFL7952-26-82 10:50:002.0[facility]annCHEM RNHOE8586-71-01 10:50:40471Wxnhgkbr HermannCHEM NRICB3376-87-57 10:50:0023[facility]annCHEM ITSYQ1164-14-99 10:50:63363 [facility]annCHEM UFUGL4118-50-22 10:50:003.1[facility]annCHEM PANEL 2019-01-23 10:50:98541Yqiitgdl [facility]annCHEM CSTHF6143-86-36 10:50:005[facility]annCHEM HFDBA8349-65-09 10:50:000.50[facility]annCHEM SBKEG1093-43-79 10:50:007.8[facility]annCHEM RMTNY6278-95-38 10:50:0083[facility]annCHEM EXTHZ9870-56-08 10:50:0010.1[facility] FtbniykYYIETWOEMM8920-28-71 10:50:000.2 [facility] HqrmugnYGJWDFYONB5143-47-45 10:50:000.8[facility]annHEMATOLOGY 2019-01-23 10:50:005.5[facility] EvbzgtzJRWYWZSWFG8106-61-62 10:50:002.2[facility] VfjezxtAEBCFRVHAM3696-69-25 10:50:000.1[facility] JyfvszfIJNYIZWTNK9517-62-68 10:50:0063.6[facility] TdgmencASTMEIEGFJ1600-10-03 10:50:008.9[facility] ODKXHVBOPG6668-77-54 10:50:002.3[facility] IlmjzjoOWUXIDOJQT7494-75-38 10:50:00 Normal (01/23/19 5:50 AM)[facility] AxytfxjNQHKVQWLYU2598-96-92 10:50:00Normal (01/23/19 5:50 AM)[facility] SwxnuinQSECEYVTHW4396-75-76 10:50:0025.1[facility] QajiuhdUJDRHESVSX5606-90-51 10:50:0013.1[facility] XbcgjatDNIPKLWHUO4150-41-46 10:50:07865Wwuacktj TmylhofKUHTICFHOH5578-68-06 10:50:007.7[facility] ZOINDXUIPE0394-16-74 10:50:008.6[facility] RxoxcnxACNEPCEFGM3606-76-09 10:50:00 10.0[facility] ZvmfpuvWRAIRMCMAH8026-44-94 10:50:0034.6[facility] HermannHEMATOLOGY 2019-01-23 10:50:0028.7[facility] KhibthzVEWOJCCHXS5339-35-19 10:50:0087.8[facility] MwveifgRMRYWEGSBH5075-62-33 10:50:00 Test Item Value Reference Range Interpretation Comments MCH (test code = MCH) 30.4 pg 27.0-31.0 [facility] OnquzjpGAJVXHTWLI2049-40-66 10:50:003.27[facility]annHEMATOLOGY 2019-01-23 10:50:60232Sjajbtsg RmdgwasCMEKKHRIZW0525-91-72 10:50:007.7[facility] PpwvlqsESHYMHWCWS0185-32-13 10:50:008.6[facility] KwwjmarRXBPSRCYJG0644-83-11 10:50:0010.0[facility] AflbizxEDYVZUAOAQ3248-89-37 10:50:0034.6[facility] HBQPXAVZRU2230-64-68 10:50:0028.7[facility] KsvjuzdQONTWOIRZS1283-44-83 10:50:00 87.8[facility] FpizwigJOIGJVAVUT6577-82-42 10:50:00 Test Item Value Reference Range Interpretation Comments MCH (test code = MCH) 30.4 pg 27.0-31.0 [facility] JobfkpePEMPJUJJKT9265-06-81 10:50:003.27[facility] HermannCHEM PANEL 2019-01-23 10:50:002.0[facility] HermannCHEM CMCHB6952-13-34 10:50:22889Vfnljagy HermannCHEM XIASY2542-63-43 10:50:0023[facility]annCHEM MYOQA2108-06-99 10:50:03580Ifombpnz HermannCHEM QRSSL9239-16-29 10:50:003.1[facility]annCHEM DUEOQ9394-19-10 10:50:70092Yfuuofmn [facility]annCHE[facility] GSRWV7855-38-42 10:50:005 [facility]annCHE[facility] SOBWU2777-26-77 10:50:000.50[facility]annCHEM PANEL 2019-01-23 10:50:007.8[facility]annCHEM GDQYE8172-32-24 10:50:0083[facility]annCHEM SYQGX2213-77-81 10:50:0010.1[facility] KfyotomSGZBKFZVFQ2305-51-23 10:50:000.2[facility] TbqykfvMPWCVMQHFZ5269-57-44 10:50:000.8[facility] WFYUCXOIFO3764-33-31 10:50:005.5[facility] IoyyhobGXDHFRDFTP1702-12-68 10:50:002.2 [facility] OmkglpdXDOYYSQPPV6178-83-24 10:50:000.1[facility]annHEMATOLOGY 2019-01-23 10:50:0063.6[facility] QjrqjycBRPFAVHXIC6447-82-94 10:50:008.9[facility] VnkgvflZXMQOZPCNK0721-84-26 10:50:002.3[facility] UkwgupvOYNUIVHDHW9577-28-36 10:50:00Normal (01/23/19 5:50 AM)[facility] LjazoekAAQWUWAAZZ4849-73-79 10:50:00 Normal (01/23/19 5:50 AM)[facility] TpgxwwwUDACFMEVUZ7878-11-09 10:50:0025.1[facility] IuidhvqETVRPCVIUD4202-20-69 10:50:0013.1[facility] HermannCHEM HSIBP8104-23-78 11:32:002.4[facility]annCHEM LNTTD1944-97-58 11:32:002.4[facility] HermannCHEM WGUOF4740-85-28 09:04:003.0[facility]annCHEM YRKCX7220-18-31 09:04:003.0 [facility]UR[facility] COHRZ5632-58-32 07:14:00 Test Item Value Reference Range Interpretation Comments UA Spec Grav (test code = UA Spec 1.014 1 Grav) [facility] ISRRO3619-57-96 07:14:00 Test Item Value Reference Range Interpretation Comments UA pH (test code = UA pH) 6.0 1 5.0-8.0 [facility] FVRQI8217-49-86 07:14:00Negative (01/22/19 2:14 AM) [facility] LYVUR1750-95-84 07:14:00Negative *NA*(01/22/19 2:14 AM) [facility] JKWCA1348-51-39 07:14:00Negative *NA*(01/22/19 2:14 AM) [facility] ZJIPR9871-75-24 07:14:00Negative *NA*(01/22/19 2:14 AM) [facility] NRPTQ2400-03-62 07:14:00Negative (01/22/19 2:14 AM) [facility] RRTQC3943-49-32 07:14:00Negative (01/22/19 2:14 AM) [facility] CAOSF3578-41-92 07:14:00Negative (01/22/19 2:14 AM) [facility] IANTO7792-67-66 07:14:00<1[facility] DPAVJ9404-32-75 07:14:0025[facility] VCAMF9681-26-83 07:14:002 [facility] ICDHL7951-10-05 07:14:00Light Yellow *NA*(01/22/19 2:14 AM)[facility] RYAEZ8127-93-16 07:14:00Clear (01/22/19 2:14 AM) [facility] XWBFU1761-75-51 07:14:00 Test Item Value Reference Range Interpretation Comments UA Spec Grav (test code = UA Spec 1.014 1 Grav) [facility] IWQPR3713-34-63 07:14:00 Test Item Value Reference Range Interpretation Comments UA pH (test code = UA pH) 6.0 1 5.0-8.0 [facility] XKAOI8502-29-44 07:14:00Negative (01/22/19 2:14 AM) [facility] WXGCQ9704-65-48 07:14:00Negative *NA*(01/22/19 2:14 AM) [facility] YBBDJ7766-95-33 07:14:00Negative *NA*(01/22/19 2:14 AM) [facility] UHRSE2166-08-20 07:14:00Negative *NA*(01/22/19 2:14 AM) [facility] ADMNJ8097-63-05 07:14:00Negative (01/22/19 2:14 AM) [facility] DLYAD8404-03-99 07:14:00Negative (01/22/19 2:14 AM) [facility] PPEVH8330-19-62 07:14:00Negative (01/22/19 2:14 AM) [facility] BDYZT5350-50-31 07:14:00<1[facility] YSUKJ2622-24-39 07:14:0025[facility] NPVSY2201-99-95 07:14:002 [facility] MCMPO0401-89-68 07:14:00Light Yellow *NA*(01/22/19 2:14 AM)[facility] OPBNT7471-58-31 07:14:00Clear (01/22/19 2:14 AM) [facility] EahwwjzJVLVM4713-33-67 05:16:000.90[facility] KxvomdnCSGLK9062-67-12 05:16:000.90[facility] BstsnpjWVRNMGCXBF6262-22-50 05:01:000.6[facility] XAGSWINMWK7378-85-37 05:01:0086.5[facility] TxnkzqfNJAIXVDEXD3351-95-70 05:01:00 5.7[facility] FrnhscrABKPXZDHAZ2827-02-15 05:01:006.9[facility]annHEMATOLOGY 2019-01-22 05:01:009.9[facility] QtnvcbeXFDSZMJVDR2556-54-17 05:01:0032.8[facility] AnucxyaTTMUIZTUUF5827-67-80 05:01:0013.6[facility] SpnbdmnEMXCNWVOGP9057-07-95 05:01:52954Whpozbgr SnedxvvENQPHLRWVS8473-95-13 05:01:007.3[facility] XTELGEIFAE5580-81-28 05:01:0014.0[facility] SuuwutpWOHQSFWRSM5434-86-58 05:01:00 4.85[facility] TicagcqFJIRZMTQVR1043-63-91 05:01:0042.7[facility]annHEMATOLOGY 2019-01-22 05:01:00 Test Item Value Reference Range Interpretation Comments MCH (test code = MCH) 29.0 pg 27.0-31.0 [facility] OylfvenPKZDNIIIMZ6263-94-25 05:01:0088.2[facility]annHEMATOLOGY 2019-01-22 05:01:00 Test Item Value Reference Range Interpretation Comments INR (test code = INR) 0.96 1 0.85-1.17 [facility] EhlzipiSSSPCPOKKY8039-54-05 05:01:00 Test Item Value Reference Range Interpretation Comments PT (test code = PT) 12.6 s 12.0-14.7 [facility] BizcqncCSWGAXGIWA5957-94-50 05:01:00 Test Item Value Reference Range Interpretation Comments PTT (test code = PTT) 25.9 s 22.9-35.8 [facility] HermannBLOOD BANK FIWAULY5168-46-09 05:01:00Negative (01/22/19 12:01 AM) [facility]annCARDIAC FGKZZBZ8653-60-83 05:01:00<0.02[facility] CARDIAC XNVKREF2549-25-33 05:01:0049[facility] HermannCHEM KJKVW2318-14-08 05:01:000.6[facility] HermannCHEM SPHBG2158-70-52 05:01:84271Tdknqigz HermannCHEM XGZSJ6085-01-12 05:01:004.0[facility] HermannCHEM DVZGB6206-06-75 05:01:0017 [facility]annCHEM BEKMK9738-89-40 05:01:0025[facility]annCHEM PANEL 2019-01-22 05:01:008.1[facility] HermannCHEM APJUT2681-92-51 05:01:00 Test Item Value Reference Range Interpretation Comments B/C Ratio (test code = B/C Ratio) 20 1 6-25 [facility]annCHEM TOWXQ8947-53-85 05:01:00 Test Item Value Reference Range Interpretation Comments A/G Ratio (test code = A/G Ratio) 1.0 1 0.7-1.6 [facility]annCHEM SOSIP6889-63-26 05:01:004.1[facility]annCHEM PANEL 2019-01-22 05:01:006.90[facility] FxqoodfBZTIHSBXUXBLP4222-12-04 05:01:00Negative *NA*(01/22/19 12:01 AM)[facility] EvkujiuJFHJGPWXZV9298-88-37 05:01:000.1[facility] DkpoljgDUKNVLNTMF9507-78-45 05:01:000.7[facility] IghomcqNDGVWSHXGZ7832-40-49 05:01:000.0[facility] OnrjqhcDPIDPTERVM2912-55-95 05:01:000.0[facility] RNQWZXZLKI1968-49-81 05:01:000.9[facility] LjqsdfcEGUDFKPVDK4114-91-00 05:01:008.6 [facility] CttogwaJDVOVBQTDU5139-33-30 05:01:000.6[facility]annHEMATOLOGY 2019-01-22 05:01:0086.5[facility] LvjcpafKRYENESWLI8238-19-99 05:01:005.7[facility] LnyecgzWCYWNVURYG4700-47-63 05:01:006.9[facility] WrwlcosCFHXZXBGZS8987-46-61 05:01:009.9[facility] TqysfqwQEBQROSJGZ9226-39-66 05:01:0032.8[facility] FWYAHLDOUI3772-65-61 05:01:0013.6[facility] SjulaehSDVFAWKFIX2524-10-33 05:01:00 443[facility] XgnlfxpOCGKQWXSXD4750-23-77 05:01:007.3[facility]annHEMATOLOGY 2019-01-22 05:01:0014.0[facility] FozjcbaPOJGPXIKMM9382-31-62 05:01:004.85[facility] PeyhqskFXCNOKVJRV6411-49-38 05:01:0042.7[facility] AafdghrNTJFUTDKHF0044-50-21 05:01:00 Test Item Value Reference Range Interpretation Comments MCH (test code = MCH) 29.0 pg 27.0-31.0 [facility] EycfpqnLQNZCSMHSZ3487-57-14 05:01:0088.2[facility]annHEMATOLOGY 2019-01-22 05:01:00 Test Item Value Reference Range Interpretation Comments INR (test code = INR) 0.96 1 0.85-1.17 [facility] NexqqcoHGGZPHKLKV9362-72-96 05:01:00 Test Item Value Reference Range Interpretation Comments PT (test code = PT) 12.6 s 12.0-14.7 [facility] IucxwafRWCOHEENAZ6044-76-85 05:01:00 Test Item Value Reference Range Interpretation Comments PTT (test code = PTT) 25.9 s 22.9-35.8 [facility] UHKDTCW3245-72-63 05:01:00Negative (01/22/19 12:01 AM) [facility] JNSGSFM3231-38-38 05:01:00<0.02[facility] CARDIAC JWGMTKZ1579-59-57 05:01:0049[facility] HermannCHEM YFLQD3072-16-61 05:01:000.6[facility] HermannCHEM KYNRV1595-13-98 05:01:44292Gnhzqctv HermannCHEM YKTFV6336-07-68 05:01:004.0[facility] HermannCHEM NLMVE2886-29-43 05:01:0017 [facility]annCHEM FKZLO7710-67-30 05:01:0025[facility]annCHEM PANEL 2019-01-22 05:01:008.1[facility] HermannCHEM ZNEBL4490-72-96 05:01:00 Test Item Value Reference Range Interpretation Comments B/C Ratio (test code = B/C Ratio) 20 1 6-25 [facility] [id number] 05:01:00 Test Item Value Reference Range Interpretation Comments A/G Ratio (test code = A/G Ratio) 1.0 1 0.7-1.6 [facility] [id number] 05:01:004.1[facility]annCHEM PANEL 2019-01-22 05:01:006.90[facility] EogsdinVAFVCQUWIYGGG0497-26-56 05:01:00Negative *NA*(01/22/19 12:01 AM)[facility] KcxhmfcWIFXBHUJNL7023-80-39 05:01:000.1[facility] MzbzldyPHTNKJVWZS3455-22-45 05:01:000.7[facility] LdfcwxkKATBFCHAVQ2185-12-85 05:01:000.0[facility] FgpdrakPBUHRMUBQA2602-78-57 05:01:000.0[facility] Yonis PQXHTCIWPI6095-54-87 05:01:000.9[facility] WbfebrbEWNHOKJZYH1617-85-57 05:01:008.6 [facility] BfpngqsWAI5F7183-88-78 14:36:00 Test Item Value Reference Range Interpretation [...] 0.00-0.01 N code = ETOHU) Comprehensive Metabolic Gmjvz4747-07-78 14:36:00 Test Item Value Reference Range Interpretation [...] the [employer],http :[email or web address] ep.nih.gov Urinalysis Tzextryk4450-76-07 14:32:00 Test Item Value Reference Range Interpretation Comments Color (test code = COLOR) Yellow Yellow,Straw,Pl N yellow Clarity (test code = Clear Clear N CLAR) Specific [place] (test 1.024 1.001-1.035 N code = SPGR) [...] code = Few /HPF BACT) CBC with Wavywxrnwbou4326-67-53 14:21:00 Test Item Value Reference Range Interpretation [...] code = ALYMPH) 3.0 K/cumm 0.5-4.6 N [place] Abs (test code = AMONO) 0.5 K/cumm 0.0-1.2 N Eos Abs (test code = AEOS) 0.19 K/cumm 0.00-0.74 N Baso Abs (test code = ABASO) 0.1 K/cumm 0.00-0.21 N
== END | disposition home or self-care (01) ==
LOC: ER 21:38
DX: Z02.9 Encounter for administrative examinations, unspecified (principal)

== ENCOUNTER 2021-10-09 14:12 | Emergency (ER) | payer OTHER ==
--- OUTSIDE RECORDS SUMMARY | 2021-10-09 14:18 | XMS REPORT | Continuity of Care Document ---
:1970 Author Organization [facility] t Address [address] [place] [address] Care Team Providers Name Role Phone UNKNOWN [...] Policy Number Effective Date Expiration Date S [facility] OF [place] - [id number] 2020 [employer] 00:00:00 (MEDICARE REPLACEMENT/ADVANT AGE - HMO) Problems Condition Condition Condition Status Onset Resolution Last Treating Co mments Source Name Details Category Date Date Treatment Clinician Date LOW PB Diagnosis Active 2019-01-22 Mem oria 01-21 01:52:00 l LOW PB 00:00: Yon[place] 00 Active 01/21/2019 [place] INFECTIOUS Diagnosis Active 2019-02-06 Memoria GASTROENTE 01-21 08:58:00 l RITIS AND 00:00: [place] COLITIS INFECTIOUS 00 GASTROENTE RITIS AND COLITIS Active 01/21/2019 [facility] Irregular Irregular Disease Active Uni vers menstrual menstrual 8-15 ity of cycle cycle 00:00: [address] Skin Skin Disease Active Univers lesion lesion 8-15 ity of 00:00: [address] Psychiatri Psychiatri Disease Active U nivers c disorder c disorder 8-15 it y of 00:00: [address] Well woman Well woman Disease Active U nivers exam with exam with 8-15 ity of routine routine 00:00: [place] gynecologi gynecologi 00 Me dical nicky exam nicky exam Branch INFECTIOUS Diagnosis Active 2019-02-06 Memoria GASTROENTE 08:58:00 l RITIS AND Yonis COLITIS, INFECTIOUS GASTROENTE RITIS AND COLITIS, Active [facility] Allergies, Adverse Reactions, Alerts Allergy Allergy Status Severity Reaction(s) Onset Inactive Treating Comm ents Source Name Type Date Date Clinician NO KNOWN Drug Active Univers ALLERGIE Class ity of S [facility] Phenerga Phenerga Active [place] winif[place] Social History Social Habit Start Date Stop Date Quantity Comments Source History of Cigarette Smoker Universi ty of tobacco use [facility] Tobacco Comment 2-3 cigs a day [facility] Exposure to Not sure [place] of SARS-CoV-2 [facility] (event) [place] Tobacco use and 2016-06-08 2016-06-08 [facility] 00:[facility]:00 00:00:00 [facility] Alcohol intake 2016-06-08 2016-06-08 0 /d University of 00:00:00 00:00:00 [facility] Sex Assigned At [birth year] Universit y of 00:00:00 00:00:00 [facility] Smoking Status Start Date Stop Date Source Social History 2019-01-22 05:00:12 [facility] Her urena Current some day smoker 2016-06-08 00:00:00 [facility] Medications Ordered Filled Start Stop Current Ordering Indication Dosage Frequency Signature Comments Components Source Medication Medication Date Date Medication? Clinician (SIG) Name Name cefTRIAXone 2020-10- No 1000mg 1,000 mg, Univers (ROCEPHIN) 17 11-17 IV ity of 1,000 mg in 08:30: 08:01 [place], [place] NaCl 0.9% 00 :00 ONCE, 1 [...] 09/09/21 at 2330, RANDA amoxicillin 2020-10 Yes [id number] 500mg Take 1 Univers 500 mg 11-10 capsule by ity of capsule 00:00: mouth 3 [place] 00 (three) Medical times Branch daily. ondansetron 2019-10- No 4mg 4 mg, [facility] ers (ZOFRAN-ODT 12-01 Oral, ity of ) 15:15: 14:16 ONCE, 1 [place] disintegrat 00 :00 dose, Mon Med ical ing tablet 09/30/20 at [facility] 4 mg 0915, Routine ondansetron 2019-10- No 4mg 4 mg, [facility] ers (ZOFRAN-ODT 12-01- Oral, ity of ) 14:30: 13:32 ONCE, 1 [place] disintegrat 00 :00 dose, Mon Med ical ing tablet 09/30/20 at [facility] nc 4 mg 0830, Routine ondansetron 2019-10 Yes [id number] 4mg Take 1 Univers 4 mg 2-07 tablet by ity of disintegrat 00:00: mouth [place] ing tablet 00 every 8 Medica l (eight) Branch hours as needed for Nausea and Vomiting (N/V). ondansetron 2019-10 Yes [id number] 4mg Take 1 Univers 4 mg 2-07 tablet by ity of disintegrat 00:00: mouth [place] ing tablet 00 every 8 Medica l (eight) Branch hours as needed for Nausea and Vomiting (N/V). ondansetron 2019-10 Yes [id number] 4mg Take 1 Univers 4 mg 2-07 tablet by ity of disintegrat 00:00: mouth [place] ing tablet 00 every 8 Medica l (eight) Branch hours as needed for Nausea and Vomiting (N/V). ondansetron 2019-10 Yes [id number] 4mg Take 1 Univers 4 mg 2-07 tablet by ity of disintegrat 00:00: mouth [place] ing tablet 00 every 8 Medica l (eight) Branch hours as needed for Nausea and Vomiting (N/V). ciprofloxac 2019 Yes 500 mg = 1 Memoria in 500 mg 4-04 tab, PO, l oral tablet 17:35: [id number], X Yonis 00 4 day, # 8 [...] 4-04 tab, PO, l oral tablet 17:35: [id number], X [place] 00 4 day, # 8 tab, 0 [...] s with feeding tube less than 14 Serbian (Dobhoff, J-tube etc) and pediatric and patients. Potassium No Notes: Memori a Chloride 4-03 (Same as: l 13:26: K-Dur 20) [place] "Do Not Crush" Give with food and full glass of water For patients unable to swallow tablet, dissolve in one half glass of water. Allow about 2 minutes for the tablets to disintegra te. Stir before giving to prepare slurry and administer . Please exclude Patient s with feeding tube less than 14 Serbian (Dobhoff, J-tube etc) and pediatric and patients. Strattera No 0.5 mg/kg, Me moria 01-24 Route: PO, l 14:00: QAM, Yonis Dosing Weight 75, kg, Start date: 01/24/19 9:00:00 CDT, Duration: 30 day, Stop date: 02/22/19 9:00:00 CDT Strattera 0 No 0.5 mg/kg, Me moria 402 Route: PO, l 14:00: QAM, [place] 00 Dosing Weight 75, kg, Start date: [...] Memoria 4- (Same as: l 15:00: Flagyl) [place] 00 Take with food/ avoid alcohol Cipro No Notes: February Memori a 4- interfere l 15:00: w/enteral [place] 00 feedings - Take 1 hr before [...] PO, ONCE, l mEq oral 14:20: 0 [place] tablet, 00 Refill(s) extended release Metronidazo No 500 mg, Mem oria le 500 MG 4-01 PO, l Oral Tablet 14:20: [id number], 0 [place] [Flagyl] 00 Refill(s) Ciprofloxac No 500 mg, Mem oria in 500 MG 01 PO, l Oral Tablet 14:20: [id number], 0 [place] [Cipro] 00 Refill(s) potassium Yes 40 mEq, Memor ia chloride 20 -01 PO, ONCE, l mEq oral 14:20: 0 [place] tablet, 00 Refill(s) extended release Metronidazo No 500 mg, Mem oria le 500 MG 4-01 PO, l Oral Tablet 14:20: [id number], 0 H [place] [Flagyl] 00 Refill(s) Ciprofloxac No 500 mg, Mem oria in 500 MG 4-01 PO, l Oral Tablet 14:20: [id number], 0 [place] [Cipro] 00 Refill(s) Potassium No [...] s with feeding tube less than 14 Serbian (Dobhoff, J-tube etc) and pediatric and patients. [...] s with feeding tube less than 14 Serbian (Dobhoff, J-tube etc) and pediatric and patients. [...] tab, PO, l Tablet 21:08: BID, 0 [place] [Risperdal] 00 Refill(s) Strattera Yes 0.5 mg/kg, [...] tab, PO, l Tablet 21:08: BID, 0 [place] [Risperdal] 00 Refill(s) Zosyn No Notes: Memoria [...] oria 3-31 to exceed l 15:03: 400mg/day. [place] 00 (Same As: Ultram) Tramadol No Notes: [...] 01-22 Route: IM, l 09:47: Drug form: [place] 00 PDR/INJ, PRN, Dosing Weight 75.994, kg, [...] 01-22 Route: IM, l 09:47: Drug form: [place] PDR/INJ, PRN, Dosing Weight 75.994, kg, PRN Blood Glucose Results, Start date: 01/22/19 4:47:00 CDT, Duration: 30 day, Stop date: 02/21/19 4:46:00 CDT Dextrose 2018- No 12.5 gm, Memor ia 50% Syringe 3-31 25 mL, l 09:47: Route: [place] 00 IVP, Drug Form: INJ, Dosing Weight [...] moria IV 3-31 1,000 l 08:52: ml/hr, [place] 00 Infuse Over: 1 hr, Route: IV, [...] 0.9% 3-31 Same as: l 04:52: BD [place] Posiflush Sterile NS (Bolus) No 1,000 mL, Me moria IV 3-31 1,000 l 04:51: ml/hr, [place] 00 Infuse Over: 1 hr, Route: IV, 1,000, Drug form: INJ, ONCE, Priority: STAT, Dosing Weight 75.994 kg, Start date: 01/21/19 23:51:00 CDT, Stop date: 01/21/19 23:51:00 CDT NS (Bolus) No 1,000 mL, Me moria IV 01-22 1,000 l 04:51: ml/hr, [place] 00 Infuse Over: 1 hr, Route: IV, [...] HYDROBROMID 8-15 mouth. ity of E 19:02: [place] (CITALOPRAM 27 Medical ORAL) Branch ibuprofen 2016-0 Yes 200mg Take 200 Uni vers (ADVIL) 200 8-15 mg by ity of mg tablet 14:02: mouth [place] [address] every 6 Medical (six) Branch hours as needed. CLONAZEPAM 2016-0 Yes Take by Uni vers (KLONOPIN 8-15 mouth. ity of ORAL) 14:02: [address] Branch CITALOPRAM 2016-0 Yes Take by Uni vers HYDROBROMID 8-15 mouth. ity of E 14:02: [place] (CITALOPRAM 27 Medical ORAL) Branch ibuprofen 2016-0 Yes 200mg Take 200 Uni vers (ADVIL) 200 8-15 mg by ity of mg tablet 14:02: mouth [place] [address] every 6 Medical (six) Branch hours as needed. CLONAZEPAM 2016-0 Yes Take by Uni vers (KLONOPIN 8-15 mouth. ity of ORAL) 14:02: [address] Branch CITALOPRAM 2016-0 Yes Take by Uni vers HYDROBROMID 8-15 mouth. ity of E 14:02: [place] (CITALOPRAM 27 Medical ORAL) Branch ibuprofen 2016-0 Yes 200mg Take 200 Uni vers (ADVIL) 200 8-15 mg by ity of mg tablet 14:02: mouth [place] [address] every 6 Medical (six) Branch hours as needed. CLONAZEPAM 2016-0 Yes Take by Uni vers (KLONOPIN 8-15 mouth. ity of ORAL) 14:02: [place] [address] Medical Branch CITALOPRAM 2016-0 Yes Take by Uni vers HYDROBROMID 8-15 mouth. ity of E 14:02: [place] (CITALOPRAM 27 Medical ORAL) Branch misoprostol 2016-0 [...] H it y of en-caff 00:00: PRN. [place] (ESGIC) 00 Medical 50-325-40 Branch mg tablet butalbital- 2015-0 Yes TK 1 TO 2 U nivers acetaminoph 8-01 T PO Q 8 H it y of en-caff 00:00: PRN. [place] (ESGIC) 00 Medical 50-325-40 Branch mg tablet butalbital- 2015-0 Yes TK 1 TO 2 U nivers acetaminoph 8-01 T PO Q 8 H it y of en-caff 00:00: PRN. [place] (ESGIC) 00 Medical 50-325-40 Branch mg tablet butalbital- 2016-0 Yes TK 1 TO 2 U nivers acetaminoph 8-01 T PO Q 8 H it y of en-caff 00:00: PRN. [place] (ESGIC) 00 Medical 50-325-40 Branch mg tablet dextroamphe 0 Yes TK 1 T PO U nivers tamine-amph 7-20 BID. ity of etamine 00:00: [place] (ADDERALL) 00 Medical 20 mg Branch tablet dextroamphe Yes TK 1 T PO U nivers tamine-amph 7-20 BID. ity of etamine 00:00: [place] (ADDERALL) 00 Medical 20 mg Branch tablet dextroamphe Yes TK 1 T PO U nivers tamine-amph 7-20 BID. ity of etamine 00:00: [place] (ADDERALL) 00 Medical 20 mg Branch tablet [...] Clinic Heart rate 2021-09-10 08:01:00 87 /min General acute hospital Respiratory rate 2021-09-10 08:01:00 20 /min [facility] O[facility] saturation in 2021-09-10 08:01:00 98 /min University of Arterial blood by [place] [facility] Pulse oximetry Branch Body temperature 2021-09-10 04:28:51 37.17 Ruthann [facility] Body height 2021-09-10 04:26:00 154.9 cm General acute hospital Body weight 2021-09-10 04:26:00 81.647 kg General acute hospital BMI 2021-09-10 04:26:00 34.01 kg/m2 General acute hospital Systolic blood 2021-09-09 20:06:00 150 mm[Hg] Univer sity of [facility] Diastolic blood 2021-09-09 20:06:00 89 mm[Hg] Unive rsity of [facility] Heart rate 2021-09-09 20:06:00 108 /min General acute hospital Body temperature 2021-09-09 20:06:00 37.22 Ruthann [facility] Respiratory rate 2021-09-09 20:06:00 18 /min [facility] Oxygen saturation in 2021-09-09 20:06:00 99 /min University of Arterial blood by [place] Pulse oximetry Branch Body weight 2021-09-09 20:05:00 81.647 kg Universi ty of [place] [facility] BMI 2021-09-09 20:05:00 32.40 kg/m2 Universi ty [facility] [place] [facility] Systolic blood 2020-09-30 14:00:00 126 mm[Hg] Univer sity of pressure [place] [facility] Diastolic blood 2020-09-30 14:00:00 84 mm[Hg] Unive rsity of pressure [place] [facility] Heart rate 2020-09-30 14:00:00 79 /min Universi ty of [place] [facility] Oxygen saturation in 2020-09-30 14:00:00 98 /min University of Arterial blood by [facility] nicky Pulse oximetry Branch Body temperature 2020-09-30 13:26:00 37.22 Ruthann Univ ersity of [place] [facility] Respiratory rate 2020-09-30 13:26:00 16 /min Univ ersity of [place] [facility] Body weight 2020-09-30 13:26:00 72.576 kg Universi ty [facility] [place] [facility] BMI 2020-09-30 13:26:00 28.80 kg/m2 Universi ty [facility] [place] [facility] Systolic blood 2020-09-30 14:00:00 126 mm[Hg] Univer sity of pressure [place] [facility] Diastolic blood 2020-09-30 14:00:00 84 mm[Hg] Unive rsity of pressure [place] [facility] Heart rate 2020-09-30 14:00:00 79 /min Universi ty of [place] [facility] Oxygen saturation in 2020-09-30 14:00:00 98 /min University of Arterial blood by [facility] nicky Pulse oximetry Branch Body temperature 2020-09-30 13:26:00 37.22 Ruthann Univ ersity of [place] [facility] Respiratory rate 2020-09-30 13:26:00 16 /min Univ ersity of [place] [facility] Body weight 2020-09-30 13:26:00 72.576 kg Universi ty [facility] [place] [facility] BMI 2020-09-30 13:26:00 28.80 kg/m2 [facility]i ty [facility] [place] [facility] Temperature Oral (F) 2019-01-28 01:16:00 98.6 F [facility] Yonis Systolic (mm Hg) 2019-01-28 01:16:00 Estrada rial [place] Diastolic (mm Hg) 2019-01-28 01:16:00 Mem orial [place] Heart Rate 2019-01-28 01:16:00 [facility] [place] Respitory Rate 2019-01-28 01:16:00 Memori al [place] Systolic (mm Hg) 2019-01-27 20:42:00 Estrada rial [place] Diastolic (mm Hg) 2019-01-27 20:42:00 Mem orial Yonis Heart Rate 2019-01-27 20:42:00 [facility] [place] Respitory Rate 2019-01-27 20:42:00 Memori al [place] Temperature Oral (F) 2019-01-27 20:42:00 98.5 F [facility] [place] Systolic (mm Hg) 2019-01-27 17:00:00 Estrada rial Y[place] Diastolic (mm Hg) 2019-01-27 17:00:00 Mem orial [place] Temperature Oral (F) 2019-01-27 17:00:00 98.5 F [facility] [place] Heart Rate 2019-01-27 17:00:00 [facility] [place] Respitory Rate 2019-01-27 17:00:00 [facility] [place] Height 2019-01-22 14:35:[address] 157[address] [facility] BMI Calculated 2019-01-22 14:35:00 [facility] [place] Weight 2019-01-22 14:35:00 [facility] [place] Weight 2019-01-22 04:34:00 [facility] Procedure Date / Time Performing Clinician Source Performed URINALYSIS 2021-09-10 06:03:[address] [facility] URINE DRUG (IMMUNOASSAY) 2021-09-10 06:03:00 Neena Rogers [facility] nc SCREEN W/O REFLEX XR CHEST 1 VW 2021-09-10 04:57:[address] [facility] CREATINE KINASE 2021-09-10 04:39:[address] [facility] MAGNESIUM 2021-09-10 04:39:[address] [facility] TROPONIN I 2021-09-10 04:39:[address] [facility] COMP. METABOLIC PANEL 2021-09-10 04:39:00 Neena Rogers [facility] ([id number]) Medical [place] CBC WITH DIFF 2021-09-10 04:39:[address] [facility] PROTHROMBIN TIME / INR 2021-09-10 04:39:00 [facility] ACTIVATED PARTIAL 2021-09-10 04:39:00 Neena Rogers [facility] THRMPLAS [facility] N-TERMINAL PRO-BNP 2021-09-10 04:39:00 Neena Rogers [facility] COVID-19 (ID NOW RAPID 2021-09-10 04:39:00 [facility] TESTING) Medical Branch TROPONIN I 2021-09-09 21:49:00 [facility] COMP. METABOLIC PANEL 2021-09-09 21:49:00 [facility] Luanne [facility] ([id number]) Medical Branch LITHIUM 2021-09-09 21:49:00 [facility] CBC WITH DIFF 2021-09-09 21:49:00 [facility] CONSENT/REFUSAL FOR 2021-09-09 19:51:22 Doctor Unassigned, No Un [facility] DIAGNOSIS AND TREATMENT Name [facility] Branch URINALYSIS 2020-09-30 13:27:00 [place], [facility] ADC,CLC OR LCC ONLY - 2020-09-30 13:27:00 JacksonChuy aleman [facility] INFLUENZA A & B DIRECT Medical B ranch ANTIGEN COVID-19 (ID NOW RAPID 2020-09-30 13:27:00 [place] Chuy [facility] TESTING) Medical Branch Encounters Start End Encounter Admission Attending Care Care Encounter Source Date/Time Date/Time Type Type Clinicians Facility Department ID 2019-01-22 Inpatient E [facility] MED [id number] [facility] W 04:39:00 2021-09-09 2021-09-10 Emergency DENIA Rogers [id number] Univers 22:20:00 03:02:00 Neena JIMENEZ [id number] i ty of [place] 4.2.7.2.686 [facility] [id number] [facility] nicky 084 Branch 2021-09-09 2021-09-10 Emergency X DENIA ROGERS ERT [id number] Univers 22:20:00 03:02:00 NEENA tubbs [facility] 2021-09-09 2021-09-10 Emergency X SANCHEZ [facility] ERT [id number] Univers 22:20:00 03:02:00 NEENA tubbs [facility] 2021-09-09 2021-09-09 Emergency Julia [facility] [id number] Univers 14:07:00 17:35:00 Luanne JIMENEZ 350.1.13.10 i ty of [place] 4.2.7.2.686 [facility] [id number] [address] 2021-09-09 2021-09-09 Orders Doctor BELKYS [id number] Univers 00:00:00 00:00:00 Only Unassigned, LANA 350.1.13.10 ity of [place] [facility] 4.2.7.2.686 [facility] [id number] [address] 2020-09-30 2020-09-30 [facility] [id number] 07:22:00 08:18:00 Chuy Jimenez 350.1.13.10 [place] 4.2.7.2.686 [place] [id number] [facility] 2020-09-30 2020-09-30 Emergency [facility] [id number] Univers 07:22:00 08:18:00 Chuy Jimenez 350.1.13.10 i ty of [place] 4.2.7.2.686 [facility] [id number] [address] 2020-09-30 2020-09-30 Emergency X [facility] ERT [id number] Univers 07:22:00 07:22:00 CHUY tubbs [facility] 2020-04-05 2020-04-05 Outpatient Humaira-Mbayo VFP [facility] [address] [place] [address] 05:44:00 05:44:00 _A_AH 32458 Family Practic e 2020-04-05 2020-04-05 Outpatient Humaira-Mbayo VFP VFP [address] 05:44:00 05:44:00 _A_AH 92107 Family Practic e 2020-04-05 2020-04-05 Outpatient Humaira-Alekso VFP VFP [id number] [facility] 05:44:00 05:44:00 _A_AH 44470 Family Practic e 2020-04-05 2020-04-05 Outpatient Humaira-Alekso VFP VFP [id number] [facility] 05:44:00 05:44:00 _A_ [id number] Family Practic e 2020-03-04 2020-03-14 Inpatient 3 Ronni Eldridge [facility] [id number] 15:38:00 15:25:00 Chen[facility] 2019-12-13 2019-12-13 Outpatient Humaira-Alekso VFP VFP 79[facility]202 [facility] 07:22:00 07:22:00 _A_AH 54262 Family Practic e 2019-01-22 2019-01-28 Inpatient [facility] [id number] Memoria 04:33:00 04:40:00 martin Somers 00 l [facility] 2018-02-21 2018-02-20 [facility] [id number] 14:48:00 13:18:00 [facility] Results Test Description Test Time Test Comments Results Result Comments Source TROPONIN I 2021-09-10 05:26:53 Test Item Value Reference Range Interpretation Comme nts TROPONIN I (test code = 0.003 ng/mL See_Comment [Au tomated message] The 7497290517) system which ge nerated this result tra [...] biotin. Lab Interpretation Normal (test code = 27054-7) [facility] [id number] 05:24:16 Test Item Value Reference Range Interpretation Comments NT-proBNP (test code 35 pg/mL See_Comment [Autom ated = 8412369801) message] The system which generated this result transmitted reference range : <=125. The reference range was not used to interpret this result as normal/abnormal . PERRY (test code = PERRY) Biotin has been reported to cause a negative bias, interpret results relative to patient's use of biotin. Lab Interpretation Normal (test code = 38940-5) [facility] 05:16:51 Test Item Value Reference Range Interpretation Comments MAGNESIUM (test code = 2238878000) 1.8 mg/dL 1.7-2.4 Lab Interpretation (test code = Normal 24851-6) [facility] ([id number])2021-09-10 05:16:31 Test Item Value Reference Range Interpretation Comments NA (test code = 139 mmol/L 135-145 4080607248) K (test code = 4.0 mmol/L 3.5-5.0 3963626179) CL (test code = 108 mmol/L 98-108 2439439103) CO2 TOTAL (test code 25 mmol/L 23-31 = 7115335257) AGAP (test code = 2-16 5396293381) BUN (test code = 14 mg/dL 7-23 3068728652) GLUCOSE (test code = 88 mg/dL 70-110 0051234319) CREATININE (test code 0.89 mg/dL 0.50-1.04 = 9349211567) TOTAL BILI (test code 0.5 mg/dL 0.1-1.1 = 2173726806) CALCIUM (test code = 10.3 mg/dL 8.6-10.6 6766670548) T PROTEIN (test code 6.9 g/dL 6.3-8.2 = 6816238143) ALBUMIN (test code = 4.3 g/dL 3.5-5.0 0054149552) ALK PHOS (test code = 72 U/L 34-122 9559283622) ALTv (test code = 17 U/L 35 1742-6) AST(SGOT) (test code 29 U/L 13-40 = 8398232658) eGFR (test code = mL/min/1.73m2 8671484282) PERRY (test code = PERRY) Association of [...] or abnormalities in imaging tests). [facility] [id number] 05:16:16 Test Item Value Reference Range Interpretation Comments CK (test code = 5778416597) 267 U/L 33-194 H Lab Interpretation (test code = Abnormal 30632-3) [facility] THRMPLAS [id number] 05:05:32 Test Item Value Reference Range Interpretation [...] seconds. Lab Interpretation Normal (test code = 19444-6) [facility] / [id number] 05:03:30 Test Item Value Reference Range Interpretation [...] tions. Lab Interpretation (test Normal code = 79497-4) [facility] [id number] 04:57:13 Test Item Value Reference Range Interpretation Comments WBC (test code = See_Comment [Automated 2990-2) message] The sy stem which generated this result transmitted reference range : 4.30 - 11.10 10*3/?L. The reference range was not used to interpret this result as normal/abnormal . RBC (test code = See_Comment [Automated 929-8) message] The sy stem which generated this [...] RDW-SD (test code = 41.2 fL 39.0-49.9 30390-2) RDW-CV (test code = 13.0 % 12.0-15.5 788-0) PLT (test code = See_Comment H [Automated 777-3) message] The sy stem which generated this result transmitted reference range : 166 - 358 10*3/ ?L. The reference r katie was not used to interpret this result as normal/abnormal . MPV (test code = 9.6 fL 9.5-12.9 47929-7) NRBC/100 WBC (test See_Comment [Automat ed code = 5605785441) message] The system which generated this result transmitted reference range : 0.0 - 10.0 /100 WBCs. The refer ence range was not u sed to interpret th is result as normal/abnormal . NRBC x10^3 (test code <0.01 See_Comment [Auto mated = 7396794852) message] The s ystem which generated this result transmitted reference range : 10*3/?L. The reference range was not used to interpret this result as normal/abnormal . GRAN MAT (NEUT) % 61.9 % (test code = 770-8) IMM GRAN % (test code 0.30 % = 7826084635) LYMPH % (test code = 26.0 % 736-9) MONO % (test code = 9.5 % 5905-5) EOS % (test code = 1.6 % 713-8) BASO % (test code = 0.7 % 706-2) GRAN MAT x10^3(ANC) 5.91 10*3/uL 1.88-7.09 (test code = 3251517646) IMM GRAN x10^3 (test 0.03 10*3/uL 0.00-0.06 code = 3156620918) LYMPH x10^3 (test code 2.48 10*3/uL 1.32-3.29 = 731-0) MONO x10^3 (test code 0.91 10*3/uL 0.33-0.92 = 742-7) EOS x10^3 (test code = 0.15 10*3/uL 0.03-0.39 711-2) BASO x10^3 (test code 0.07 10*3/uL 0.01-0.07 = 704-7) Lab Interpretation Abnormal (test code = 69644-7) [facility] [id number] 22:24:55 Test Item Value Reference Interpretation Comments Range TROPONIN I (test 0.002 ng/mL See_Comment [Automated code = 5130945482) message] The system which generated this result [...] biotin. Lab Interpretation Normal (test code = 17715-1) [facility] 22:24:34 Test Item Value Reference Range Interpretation Comments [place] (test code = <0.2 0.6-1.2 L 5961273822) PERRY (test code = PERRY) Toxic Range: ? Greater than 1.2 mmol/L Lab Interpretation (test Abnormal code = 52861-0) [facility] (88904)2021-09-09 22:13:54 Test Item Value Reference Range Interpretation Comments NA (test code = 139 mmol/L 135-145 9876685011) K (test code = 4.0 mmol/L 3.5-5.0 4095760785) CL (test code = 105 mmol/L 98-108 7779165930) CO2 TOTAL (test code 26 mmol/L 23-31 = 6842614119) AGAP (test code = 2-16 1559168970) BUN (test code = 11 mg/dL 7-23 1250477259) GLUCOSE (test code = 109 mg/dL 70-110 7233044053) CREATININE (test code 0.71 mg/dL 0.50-1.04 = 7402429334) TOTAL BILI (test code 0.6 mg/dL 0.1-1.1 = 4292708619) CALCIUM (test code = 10.4 mg/dL 8.6-10.6 9451761431) T PROTEIN (test code 7.6 g/dL 6.3-8.2 = 7501334517) ALBUMIN (test code = 4.7 g/dL 3.5-5.0 3284350156) ALK PHOS (test code = 78 U/L 34-122 3287748990) ALTv (test code = 19 U/L 5-35 1742-6) AST(SGOT) (test code 28 U/L 13-40 = 5347308646) eGFR (test code = mL/min/1.73m2 0815984430) PERRY (test code = PERRY) Association of [...] in imaging tests). [facility] WITH YGBF7124-58-37 22:03:32 Test Item Value Reference Range Interpretation Comments WBC (test code = See_Comment [Automated 8990-2) message] The sy stem which generated this [...] RDW-SD (test code = 40.2 fL 39.0-49.9 30981-3) RDW-CV (test code = 12.9 % 12.0-15.5 788-0) PLT (test code = See_Comment H [Automated 777-3) message] The sy stem which generated this result transmitted reference range : 166 - 358 10*3/ ?L. The reference r katie was not used to interpret this result as normal/abnormal . MPV (test code = 9.4 fL 9.5-12.9 L 86002-7) NRBC/100 WBC (test See_Comment [Automat ed code = 0702000194) message] The system which generated this result transmitted reference range : 0.0 - 10.0 /100 WBCs. The refer ence range was not u sed to interpret th is result as normal/abnormal . NRBC x10^3 (test code <0.01 See_Comment [Auto mated = 0567226572) message] The s ystem which generated this result transmitted reference range : 10*3/?L. The reference range was not used to interpret this result as normal/abnormal . GRAN MAT (NEUT) % 67.1 % (test code = 770-8) IMM GRAN % (test code 1.00 % = 1850983709) LYMPH % (test code = 21.4 % 736-9) MONO % (test code = 7.9 % 5905-5) EOS % (test code = 1.8 % 713-8) BASO % (test code = 0.8 % 706-2) GRAN MAT x10^3(ANC) 7.35 10*3/uL 1.88-7.09 H (test code = 6819599621) IMM GRAN x10^3 (test 0.11 10*3/uL 0.00-0.06 H code = 0374790061) LYMPH x10^3 (test code 2.34 10*3/uL 1.32-3.29 = 731-0) MONO x10^3 (test code 0.86 10*3/uL 0.33-0.92 = 742-7) EOS x10^3 (test code = 0.20 10*3/uL 0.03-0.39 711-2) BASO x10^3 (test code 0.09 10*3/uL 0.01-0.07 H = 704-7) Lab Interpretation Abnormal (test code = 78876-7) [facility] - INFLUENZA A & B DIRECT QKPZDPK7793-74-90 14:04:00 Test Item Value Reference Range Interpretation Comments Influenza A (test code = 23761-2) Negative Negative Influenza B (test code = 09033-8) Negative Negative Lab Interpretation (test code = Normal 58110-1) [facility] NOW RAPID TESTING)2020-09-30 14:03:00 Test Item Value Reference Range Interpretation Comments SARS-CoV-2 Rapid ID NOW Not Detected Not Detected (test code = 18596-8) PERRY (test code = PERRY) ID NOW COVID-19 Assay is an isothermal nucleic acid amplification test intended for the qualitative detection of nucleic acid from SARS-CoV-2 viral RNA in nasopharyngeal (SCREEN PRINTER) specimens. It is used under Emergency Use [...] indicated. Lab Interpretation Normal (test code = 32769-9) [facility] 13:55:00 Test Item Value Reference Range Interpretation Comments APPEARANCE (test code = Hazy Clear A 1850615009) COLOR (test code = Yellow Yellow 1566956765) PH (test code = 4.8-8.0 5048529115) SP GRAVITY (test code = 1.003-1.030 1818673903) GLU U QUAL (test code = Normal Normal 5164723073) BLOOD (test code = Negative Negative 6518875527) KETONES (test code = 5 mg/dL Negative A 1462247583) PROTEIN (test code = Negative Negative 2887-8) UROBILIN (test code = 2.0 mg/dL Normal A 1099111947) BILIRUBIN (test code = Negative Negative 3312962934) NITRITE (test code = Negative Negative 3491866995) LEUK ROZINA (test code = 25/uL Negative A 4970938685) RBC/HPF (test code = See_Comment [Autom ated message] 9713490270) The system [employer] generated this result transmit ngozi reference range : 0 - 3 HPF. The refe rence range was not u sed to interpret th is result as normal/abnormal . WBC/HPF (test code = See_Comment [Autom ated message] 0507940776) The system [employer] generated this result transmit ngozi reference range : 0 - 5 HPF. The refe rence range was not u sed to interpret th is result as normal/abnormal . BACTERIA (test code = Few Negative A 5440215098) MUCOUS (test code = Slight Negative LPF A 2530351269) SQ EPITH (test code = HPF 3988559653) Lab Interpretation (test Abnormal code = 64321-2) [facility] Zpsoirvvosk4408-95-93 16:42:24 Test Item Value Reference Range Interpretation [...] = 10-24-2020 N Expiration Dt) Thyroid Stimulating Tpyodzb0811-96-09 08:35:16 Test Item Value Reference Range Interpretation Comments TSH (test code = TSH) 1.170 mIU/mL 0.270-4.200 Lipid Tojhu3983-18-04 08:21:19 Test Item Value Reference Range Interpretation Comments Cholesterol Total 254 mg/dL 0-200 H RISK OF HE ART (test code = DISEASEPublishe d by Cholesterol Total) [employer] Cathie lyte Optimal Borderl ine [...] calculation is LDL/HDL Ratio=L DL Calc/HDL Chol FPOGGJVCHUHP0282-38-87 08:24:008.6[facility] YrwknfmZPHITYHAFAVE0780-07-06 08:24:07548Dupjmgma ZdkywmxHABTNQMTTWRS4799-87-43 08:24:0027[facility] CXJEHMEHDJXU7856-48-78 08:24:75409Icguiyim KjmslbjNCFQQFMNDFLH8536-17-70 08:24:003.6[facility] KgiywyeDCGQYVNRCKPV4360-74-29 08:24:000.70[facility] OLREOTVNPOIO0944-16-15 08:24:008.4[facility] RbfegzdIIALSOEMLLRP5757-05-32 08:24:55541Utfquaii ColczasYTPBSNNBQRJV2049-04-18 08:24:0086[facility] CZRCPSIWZXSZ9674-61-55 08:24:006[facility] JxdbirtDCUFWNFSSI9766-45-35 08:24:00 11.6[facility] TyslmigNNUVZKMAAC0963-08-51 08:24:003.78[facility]annHEMATOLOGY 2019-01-26 08:24:0013.3[facility] IrxdtclDYCKMDTUDP3479-91-02 08:24:0034.0[facility] YksfqvnSITRIYMPFZ6219-96-47 08:24:006.3[facility] UxwjjbjCIXNUSLJCC7800-91-19 08:24:00 Test Item Value Reference Range Interpretation Comments MCH (test code = MCH) 30.7 pg 27.0-31.0 [facility] MhxufdoEPHCYOTEWC8814-37-92 08:24:0090.3[facility]annHEMATOLOGY 2019-01-26 08:24:0034.2[facility] DyrfacvPOLGKEOQTI1223-36-76 08:24:39776Mzrnohfe WelmdsgASVIRHDDRZ7122-19-48 08:24:007.5[facility] AappgfoZWGQWOMKLFOW3111-88-67 08:24:008.6[facility] MwiklueCOBMNARPWFPI4116-57-98 08:24:82595Lwxbdhdj [facility] UURJKSNTNDWD5530-76-44 08:24:0027[facility] HskwebcUGJKLCTHDLZL5236-86-42 08:24:00 139[facility] YrqurywRMSHVTPVUTXQ4254-05-96 08:24:003.6[facility] FUAPFGPVPKSG5533-57-27 08:24:000.70[facility] EtjlrsgXHESZQESMDRJ4106-56-35 08:24:008.4[facility] RosahqsKTWEOOBCTWQN2665-53-25 08:24:58264Cawcuugy Y[facility] CZQEHNULPLNN1515-58-81 08:24:0086[facility] UzidahfFSYVKICZOGCS5775-83-54 08:24:00 6[facility] HjsksbsNRLGFXJKAQ7976-13-49 08:24:0011.6[facility]annHEMATOLOGY 2019-01-26 08:24:003.78[facility] JymrepsGELPSGQQLF2744-48-20 08:24:0013.3[facility] RdhanzrXKZJCNZHNZ4663-34-80 08:24:0034.0[facility] YdjoavhHQSOAVNFKR1971-08-33 08:24:006.3[facility] FwwslghXLBLCMFDIT1708-93-01 08:24:00 Test Item Value Reference Range Interpretation Comments MCH (test code = MCH) 30.7 pg 27.0-31.0 [facility] MgkkczzBNOKFXEKVP2747-08-95 08:24:0090.3[facility]annHEMATOLOGY 2019-01-26 08:24:0034.2[facility] HesubxuZZUKQSBKZS9725-54-03 08:24:50645Tzsumsuw VpyvqpgVWGKGHYQXL6676-85-37 08:24:007.5[facility] HermannCHEM ATWMO9097-51-92 09:14:79839Bbzydjyt HermannCHEM JPQQT2055-46-26 09:14:008.5[facility]annCHEM UVKWD7489-05-52 09:14:0013.3[facility]annCHEM QNEAX8967-53-90 09:14:0024 [facility]annCHE[facility] FCATQ8220-87-46 09:14:32493Ajwirqvr HermannCHEM PANEL 2019-01-25 09:14:0081[facility]annCHEM ULVEN7976-96-67 09:14:002[facility]annCHEM UDMNB8981-19-69 09:14:003.3[facility]annCHEM NIDTM1220-24-22 09:14:000.60[facility]annCHEM YMUJT0833-28-71 09:14:23373Ihefatzk [facility]annCHEM CHTVN6686-40-78 09:14:67151Cozbyoid HermannCHEM WCOZA7807-61-23 09:14:008.5 [facility]CHE[facility] XIWTQ6181-01-99 09:14:0013.3[facility]annCHEM PANEL 2019-01-25 09:14:0024[facility]annCHEM WDBDJ5312-12-31 09:14:61402Vejcjhkd [facility]annCHE[facility] GIQNA5692-33-93 09:14:0081[facility]annCHEM UKMNM7643-00-75 09:14:002[facility]annCHEM MXAJH5116-48-15 09:14:003.3[facility]annCHEM FMHDJ3444-87-03 09:14:000.60[facility]annCHEM TLLMT7779-36-04 09:14:25281 [facility]annMOLECULAR UXSUVJETVO9840-49-52 16:22:00Negative (01/23/19 11:22 AM)[facility]annMOLECULAR MNFCHNYPNG3573-52-23 16:22:00Negative (01/23/19 11:22 AM)[facility]annCHEM AQRYI9747-64-49 15:42:002.76[facility]annCHEM PANEL 2019-01-23 15:42:002.76[facility]annCHEM VRHVH2050-18-29 12:32:000.9[facility]annCHEM JCHIA9959-86-12 12:32:000.9[facility]annCHEM GKEXG8299-97-39 10:50:002.0[facility]annCHEM YMVQA2389-14-23 10:50:65607Csvuutyx HermannCHEM ABCGI8351-61-80 10:50:0023[facility]annCHEM BRTGE3913-46-29 10:50:01406 [facility]annCHE[facility] USHQP8784-27-98 10:50:003.1[facility]annCHEM PANEL 2019-01-23 10:50:66747Dumbfsgk [facility]annCHEM TVDER4734-41-38 10:50:005[facility]annCHEM UYAQM4641-92-27 10:50:000.50[facility]annCHEM IFGBF2508-62-92 10:50:007.8[facility]annCHEM KKLCW3932-76-88 10:50:0083[facility]annCHEM ROQMP6339-63-75 10:50:0010.1[facility] GirslidMOSARBPWZS2538-62-45 10:50:000.2 [facility] AnrtepeOVRJYJDVXR0753-13-36 10:50:000.8[facility]annHEMATOLOGY 2019-01-23 10:50:005.5[facility] LxtywpqFNEPHDFSZN5791-81-36 10:50:002.2[facility] YqcbhiqCAHUUUHGXG1586-86-69 10:50:000.1[facility] MnbqfhsXZEJLGMFWV7864-26-60 10:50:0063.6[facility] ZkauyfuZJVDAPEIEB0727-69-39 10:50:008.9[facility] YXHAZKUJGX0851-59-57 10:50:002.3[facility] RterivvENQLZJIMVQ8547-67-49 10:50:00 Normal (01/23/19 5:50 AM)[facility] OzfdfrlZPLAFWLTCQ6995-89-93 10:50:00Normal (01/23/19 5:50 AM)[facility] DhqgvwxRENMVYUDRK8546-39-09 10:50:0025.1[facility] PtzijtiNBFZCVILYQ8171-00-45 10:50:0013.1[facility] RdzjrdfJKJKSTCKAY4155-12-32 10:50:87923Azjfeqiu IoigfxqKJIGMKSDEB9987-36-98 10:50:007.7[facility] FKIEWXFEPM5017-14-13 10:50:008.6[facility] QqwpofzRUGLECUOKY1119-12-42 10:50:00 10.0[facility] BijixowJDBQUKQNIP2048-42-28 10:50:0034.6[facility]annHEMATOLOGY 2019-01-23 10:50:0028.7[facility] IsxzucrNOVWCOIOJO7648-38-93 10:50:0087.8[facility] QqyerulOVEPXUOEWH0454-77-82 10:50:00 Test Item Value Reference Range Interpretation Comments MCH (test code = MCH) 30.4 pg 27.0-31.0 [facility] UoqhiboEYOYYZRHPX4013-95-23 10:50:003.27[facility]annHEMATOLOGY 2019-01-23 10:50:25305Oevpqeot VamftkfQMELJZVCZB7258-09-92 10:50:007.7[facility] JvoelrvEKXFJIVEOO4016-29-28 10:50:008.6[facility] NsgarqzFUCEQQZJUC4572-86-29 10:50:0010.0[facility] ZafzmrxSVSEQYHONR0627-18-54 10:50:0034.6[facility] KYMVOCEQNI9835-46-22 10:50:0028.7[facility] SmifywoIARJRYOSGZ3395-91-85 10:50:00 87.8[facility] IhqlzhuMYKBEBQBGK8110-86-30 10:50:00 Test Item Value Reference Range Interpretation Comments MCH (test code = MCH) 30.4 pg 27.0-31.0 [facility] GszmedyYSAHJMKGLJ4044-50-52 10:50:003.27[facility]annCHEM PANEL 2019-01-23 10:50:002.0[facility]annCHEM JFFOB2132-42-91 10:50:78013Thzqfgws HermannCHEM IOVMK9460-60-29 10:50:0023[facility]annCHEM EQSUP4506-64-94 10:50:09200Mbpduvtk [facility]annCHE[facility] UWEEG0709-47-95 10:50:003.1[facility]annCHEM XMJBK8819-82-61 10:50:92005Mrdsitgb [facility]CHE[facility] AMAIE2516-56-97 10:50:005 [facility]annCHE[facility] IXEJR1817-00-47 10:50:000.50[facility]annCHEM PANEL 2019-01-23 10:50:007.8[facility] HermannCHEM ASAND2326-90-49 10:50:0083[facility]annCHEM ILUVC9151-58-05 10:50:0010.1[facility] UwifclaORZEVTCQHZ1332-39-57 10:50:000.2[facility] IuhjncjBRYKEEYAAA6368-80-60 10:50:000.8[facility] FAVHMMJHJY5902-24-57 10:50:005.5[facility] AojvpldTMWNPRLNEA9269-41-41 10:50:002.2 [facility] ZzyggziLSVBHDAIBG6424-57-20 10:50:000.1[facility]annHEMATOLOGY 2019-01-23 10:50:0063.6[facility] HnqjydlLIDRGJAWWL5126-73-90 10:50:008.9[facility] WbstowyNNPUKIXKHX5726-14-36 10:50:002.3[facility] PugliiqGAKRHLPQJI8573-22-99 10:50:00Normal (01/23/19 5:50 AM)[facility] ZfzewgfPTHZIJPQGJ0900-54-78 10:50:00 Normal (01/23/19 5:50 AM)[facility] KwydokcDOTMEZYVPS7225-22-27 10:50:0025.1[facility] EpkpkgeLBKCHNJAOA1803-40-02 10:50:0013.1[facility] HermannCHEM MGAWL6195-92-40 11:32:002.4[facility]annCHEM KEPDS3376-95-21 11:32:002.4[facility]annCHEM KOBDB0557-39-91 09:04:003.0[facility]annCHEM WIDKG1088-26-49 09:04:003.0 [facility] AND RTYBB4675-44-92 07:14:00 Test Item Value Reference Range Interpretation Comments UA Spec Grav (test code = UA Spec 1.014 1 Grav) [facility] OYSGS2735-34-73 07:14:00 Test Item Value Reference Range Interpretation Comments UA pH (test code = UA pH) 6.0 1 5.0-8.0 [facility] JTEXP5281-77-11 07:14:00Negative (01/22/19 2:14 AM) [facility] CKLSO1863-69-47 07:14:00Negative *NA*(01/22/19 2:14 AM) [facility] NAKXG5913-15-16 07:14:00Negative *NA*(01/22/19 2:14 AM) [facility] RHANG1223-33-56 07:14:00Negative *NA*(01/22/19 2:14 AM) [facility] LWAIC6649-44-42 07:14:00Negative (01/22/19 2:14 AM) [facility] ODISD8456-73-30 07:14:00Negative (01/22/19 2:14 AM) [facility] LOJVL8995-50-01 07:14:00Negative (01/22/19 2:14 AM) [facility] LEKEE4854-18-65 07:14:00<1[facility] KITCA3679-79-90 07:14:0025[facility] UAXCD9644-20-31 07:14:002 [facility] UODMN2470-33-22 07:14:00Light Yellow *NA*(01/22/19 2:14 AM)[facility] OCVXQ1850-38-68 07:14:00Clear (01/22/19 2:14 AM) [facility] PCSZA9084-72-71 07:14:00 Test Item Value Reference Range Interpretation Comments UA Spec Grav (test code = UA Spec 1.014 1 Grav) [facility] PZXKK5007-28-60 07:14:00 Test Item Value Reference Range Interpretation Comments UA pH (test code = UA pH) 6.0 1 5.0-8.0 [facility] FZQKH7365-92-32 07:14:00Negative (01/22/19 2:14 AM) [facility] AMWJS5697-99-84 07:14:00Negative *NA*(01/22/19 2:14 AM) [facility] AKNAG2171-16-43 07:14:00Negative *NA*(01/22/19 2:14 AM) [facility] OQLXK5322-02-01 07:14:00Negative *NA*(01/22/19 2:14 AM) [facility] OLRUQ5869-84-24 07:14:00Negative (01/22/19 2:14 AM) [facility] WFYWE3168-59-68 07:14:00Negative (01/22/19 2:14 AM) [facility] KFOEX1139-42-13 07:14:00Negative (01/22/19 2:14 AM) [facility] GYXRG4759-41-10 07:14:00<1[facility] WGCAX6915-50-81 07:14:0025[facility] POVWI5291-20-12 07:14:002 [facility] IXAEA0963-94-66 07:14:00Light Yellow *NA*(01/22/19 2:14 AM)[facility] YPTAJ2010-10-13 07:14:00Clear (01/22/19 2:14 AM) [facility] CjdgzetGCZMX5490-12-87 05:16:000.90[facility] SjluagbFEJFI0553-31-06 05:16:000.90[facility] YpzeqgyJNJRWVJBOF5634-11-27 05:01:005.7[facility] WBMRLHPZLK9148-23-85 05:01:006.9[facility] OgbkaskOJANYSBSVG4875-48-98 05:01:009.9 [facility] CucusipMRBZMAPQEN0518-34-49 05:01:0032.8[facility]annHEMATOLOGY 2019-01-22 05:01:0013.6[facility] LqmlzcgUZEBOJEAKK8706-82-00 05:01:53580Gackeyuj VgehfriGUKXXOBZHT1700-68-25 05:01:007.3[facility] GeforvcYJCZSGFJUN0253-20-40 05:01:0014.0[facility] PytbicuBSKLUEZKNM1881-33-35 05:01:004.85[facility] BZSYTTRCHO0229-43-12 05:01:0042.7[facility] SkwbpieLVKRGXJENG5866-92-74 05:01:00 Test Item Value Reference Range Interpretation Comments MCH (test code = MCH) 29.0 pg 27.0-31.0 [facility] IlrmiqsEQDMPQMRKZ9164-95-15 05:01:0088.2[facility]annHEMATOLOGY 2019-01-22 05:01:00 Test Item Value Reference Range Interpretation Comments INR (test code = INR) 0.96 1 0.85-1.17 [facility] IihxvynMVZYSQJKRZ5018-23-13 05:01:00 Test Item Value Reference Range Interpretation Comments PT (test code = PT) 12.6 s 12.0-14.7 [facility] RkyjzeeRYNKEMDZWE5494-75-66 05:01:00 Test Item Value Reference Range Interpretation Comments PTT (test code = PTT) 25.9 s 22.9-35.8 [facility]annBLOOD BANK PFMCJJG1150-59-83 05:01:00Negative (01/22/19 12:01 AM) [facility]annCARDIAC LKSUIZW2105-73-53 05:01:00<0.02[facility] CARDIAC MGJMVRD3419-38-65 05:01:0049[facility]annCHEM MLKOA5280-11-03 05:01:000.6[facility] HermannCHEM ZDCCH2803-73-11 05:01:29283Eykhymkj HermannCHEM FHPKU1655-36-50 05:01:004.0[facility] HermannCHEM VYREH5290-01-20 05:01:0017 [facility]annCHE[facility] QLGVD4819-06-05 05:01:0025[facility]annCHEM PANEL 2019-01-22 05:01:008.1[facility] HermannCHEM PCMZX7467-13-59 05:01:00 Test Item Value Reference Range Interpretation Comments B/C Ratio (test code = B/C Ratio) 20 1 6-25 [facility]annCHE[facility] PZARC6498-91-21 05:01:00 Test Item Value Reference Range Interpretation Comments A/G Ratio (test code = A/G Ratio) 1.0 1 0.7-1.6 [facility]annCHE[facility] SZJAJ6405-93-27 05:01:004.1[facility]annCHEM PANEL 2019-01-22 05:01:006.90[facility] OvxmqshNJGNWAWRTBQUX1800-23-25 05:01:00Negative *NA*(01/22/19 12:01 AM)[facility] HontptyKDVIFJHDGF3937-75-84 05:01:000.1[facility] ZhltwgdPBWPZATLBI3370-89-83 05:01:000.7[facility] VpdnronOPXUPXNGKU1017-03-04 05:01:000.0[facility] EfjuydpRGVQYRIAOU7844-16-07 05:01:000.0[facility] GUGDQRDHSZ5317-63-92 05:01:000.9[facility] GeilpgtUOOJSVIRCO0363-71-20 05:01:008.6 [facility] QtfldbhUBVHDSKQRY7098-65-45 05:01:000.6[facility]annHEMATOLOGY 2019-01-22 05:01:0086.5[facility] AvqgtjdOWELDAQKYO5677-19-97 05:01:005.7[facility] BkxlcjrEAZWZLDOHM4942-50-79 05:01:006.9[facility] DqapqmfEGYXNVZEBT4545-60-05 05:01:009.9[facility] IjywdjwSZBVDAFRTZ3746-06-47 05:01:0032.8[facility] IAATDHCNAL7569-21-71 05:01:0013.6[facility] AeqdvnnDPDGQGBNZF3304-41-30 05:01:00 443[facility] HhuqgsiCYUJPXQVOV9304-48-36 05:01:007.3[facility]annHEMATOLOGY 2019-01-22 05:01:0014.0[facility] BthhjixVYSHROAETJ9110-67-19 05:01:004.85[facility] OnnyljhCBEZIYOMVW9114-59-45 05:01:0042.7[facility] VqcicwzCTJDROAXVW5461-52-07 05:01:00 Test Item Value Reference Range Interpretation Comments MCH (test code = MCH) 29.0 pg 27.0-31.0 [facility] HdzkhulZJLZBYQVLW4040-38-07 05:01:0088.2[facility]annHEMATOLOGY 2019-01-22 05:01:00 Test Item Value Reference Range Interpretation Comments INR (test code = INR) 0.96 1 0.85-1.17 [facility] XegnuklDVZGTOSQHB8136-24-76 05:01:00 Test Item Value Reference Range Interpretation Comments PT (test code = PT) 12.6 s 12.0-14.7 [facility] RthssehZMUOAUCCHN2283-76-69 05:01:00 Test Item Value Reference Range Interpretation Comments PTT (test code = PTT) 25.9 s 22.9-35.8 [facility] DPTAVUX8035-78-36 05:01:00Negative (01/22/19 12:01 AM) [facility] HermannCARDIAC PSLEJVM8396-10-07 05:01:00<0.02[facility] CARDIAC ZCBMMKS2818-39-85 05:01:0049[facility] HermannCHEM IJXAS1339-05-49 05:01:000.6[facility] HermannCHEM XLANN4019-29-62 05:01:64097Fmujyycq HermannCHEM COADC9006-82-17 05:01:004.0[facility] HermannCHEM SFBCJ4743-12-13 05:01:0017 [facility]annCHEM NKQUN7388-68-86 05:01:0025[facility]annCHEM PANEL 2019-01-22 05:01:008.1[facility] HermannCHEM SUQUG0134-52-25 05:01:00 Test Item Value Reference Range Interpretation Comments B/C Ratio (test code = B/C Ratio) 20 1 6-25 [facility] HermannCHEM [id number] 05:01:00 Test Item Value Reference Range Interpretation Comments A/G Ratio (test code = A/G Ratio) 1.0 1 0.7-1.6 [facility]ann[facility] [id number] 05:01:004.1[facility] HermannCHEM PANEL 2019-01-22 05:01:006.90[facility] JmwlrddLAFCNTYZHBDEC1397-62-29 05:01:00Negative *NA*(01/22/19 12:01 AM)[facility] [id number] 05:01[facility]000.1[facility] SpyxzyrSWEKJGSRIC2397-79-96 05:01:000.7[facility] SodpujyPYPCDBCSJK8504-29-12 05:01:000.0[facility] LuyeovnOMWBTAQDTH1020-20-63 05:01:000.0[facility] Yonis [id number] 05:01:000.9[facility] CyvjtzwMMHIYDKUNO6249-14-26 05:01:008.6 [facility] TelvnohZWDNLQHEHC1458-80-06 05:01:000.6[facility] HermannHEMATOLOGY 2019-01-22 05:01:0086.5[facility] [id number] 14:36:00 Test Item Value Reference Range Interpretation [...] 0.00-0.01 N code = ETOHU) Comprehensive Metabolic Fucor3420-12-27 14:36:00 Test Item Value Reference Range Interpretation [...] the [employer],http :[email or web address].nih.gov Urinalysis [id number] 14:32:00 Test Item Value Reference Range Interpretation Comments Color (test code = COLOR) Yellow Yellow,Straw,Pl N yellow Clarity (test code = Clear Clear N CLAR) Specific [place] (test 1.024 1.001-1.035 N code = SPGR) [...] code = Few /HPF BACT) CBC with Brzyjcevltsu4925-56-37 14:21:00 Test Item Value Reference Range Interpretation [...] code = ALYMPH) 3.0 K/cumm 0.5-4.6 N [place] Abs (test code = AMONO) 0.5 K/cumm 0.0-1.2 N Eos Abs (test code = AEOS) 0.19 K/cumm 0.00-0.74 N Baso Abs (test code = ABASO) 0.1 K/cumm 0.00-0.21 N
--- NOTE | 2021-10-09 15:27 | EDPHYS ---
Physician Documentation [facility] Name: Tiffany Quinn Age: 51 yrs Sex: Female : 1970 Arrival Date: 10/09/2021 Time: 14:14 Bed Treatment Private MD: ED Physician Demarcus Mancilla HPI: 10/10 07:21 This 51 yrs old Female presents to ER via Ambulatory with complaints of Headache, Hand kdr Swelling, Cough, Congestion. 07:21 The patient complains of pain to the top of head. The patient describes the headache as kdr aching, intermittent, waxing and waning. Onset: The symptoms/episode began/occurred Patient has chronic headaches and is seen here on a regular basis for same or similar complaints as well as additional complaints. Associated signs and symptoms: The patient has no apparent associated signs or symptoms. Severity of symptoms: At its worst the pain was very mild, in the emergency department the pain has resolved. Headache History: The patient has had previous headaches and this one is similar to previous episodes. The symptoms are alleviated by nothing. the symptoms are aggravated by nothing. The patient has not experienced similar symptoms in the past. The patient has not recently seen a physician. 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 - Social history:: Smoking status: Patient denies any tobacco usage or history of. ROS: 10/10 07:21 Constitutional: Negative for fever, chills, and weight loss, Eyes: Negative for injury, kdr pain, redness, and discharge, ENT: Negative for injury, pain, and discharge, Neck: Negative for injury, pain, and swelling, Cardiovascular: Negative for chest pain, palpitations, and edema, Respiratory: Negative for shortness of breath, cough, wheezing, and pleuritic chest pain, Abdomen/GI: Negative for abdominal pain, nausea, vomiting, diarrhea, and constipation, Back: Negative for injury and pain, : Negative for injury, bleeding, discharge, and swelling, MS/Extremity: Negative for injury and deformity, Skin: Negative for injury, rash, and discoloration, Psych: Negative for depression, anxiety, suicide ideation, homicidal ideation, and hallucinations, Allergy/Immunology: Negative for hives, rash, and allergies, Endocrine: Negative for neck swelling, polydipsia, polyuria, polyphagia, and marked weight changes, Hematologic/Lymphatic: Negative for swollen nodes, abnormal bleeding, and unusual bruising. Neuro: Positive for headache, Negative for altered mental status, dizziness, gait disturbance, loss of consciousness, numbness, seizure activity, weakness. Exam: 07:21 Constitutional: This is a well developed, well nourished patient who is awake, alert, kdr and in no acute distress. Head/Face: Normocephalic, atraumatic. Eyes: Pupils equal round and reactive to light, extra-ocular motions intact. Lids and lashes normal. Conjunctiva and sclera are non-icteric and not injected. Cornea within normal limits. Periorbital areas with no swelling, redness, or edema. Neck: Trachea midline, no thyromegaly or masses palpated, and no cervical lymphadenopathy. Supple, full range of motion without nuchal rigidity, or vertebral point tenderness. No Meningismus. 07:21 Neuro: Orientation: is normal, Patient is in her normal mental status. 07:21 Psych: Behavior/mood is anxious, Patient is in her usual mental status. Vital Signs: 10/09 14:30 BP 112 / 70; Pulse 88; Resp 16; Temp 98.8; Pulse Ox 100% ; Weight 71.67 kg; Height 5 vg1 ft. 1 in. (154.94 cm); Pain 9/10; 15:48 BP 123 / 60; Pulse 85; Resp 18; Pulse Ox 97% on R/A; ww 14:30 Body Mass Index 29.85 (71.67 kg, 154.94 cm) vg1 [place] Coma Score: 15:48 Eye Response: spontaneous(4). Verbal Response: oriented(5). Motor Response: obeys ww commands(6). Total: 15. MDM: 15:27 Patient medically screened. kdr 12/17 07:21 Data reviewed: vital signs, nurses notes. Counseling: I had a detailed discussion with kdr the patient and/or guardian regarding: the historical points, exam findings, and any diagnostic results supporting the discharge/admit diagnosis, the need for outpatient follow up. 10/09 14:35 Order name: Strep; Complete Time: 15:25 vg1 10/09 14:35 Order name: COVID-19/FLU A+B EDMS 10/09 15:19 Order name: Throat Culture EDMS Administered Medications: 10/09 15:46 Drug: UltRAM (traMADol) 50 mg Route: PO; ww Disposition Summary: 10/09/21 15:27 Discharge Ordered Location: Home kdr Problem: an acute exacerbation kdr Symptoms: have improved kdr Condition: Stable kdr Diagnosis - Pain in joint - Bilateral hand kdr - Arthralgias kdr Followup: kdr - With: Private Physician - When: 2 - 3 days - Reason: If symptoms return, Further diagnostic work-up, Recheck today's complaints, Continuance of care, Re-evaluation by your physician Discharge Instructions: - Discharge Summary Sheet kdr - Joint Pain kdr - Joint Pain, [id number] kdr Forms: - Medication Reconciliation Form kdr - Thank You Letter kdr Prescriptions: - Ultram 50 mg Oral Tablet - take 1 tablet by ORAL route Every 7 to 10 days As needed; 5 tablet; Refills: 0, kdr Product Selection Permitted Signatures: Dispatcher [employer] Demarcus Quezada MD MD kdr Ibeth Charles RN RN vg1 Roxana Young RN RN ww Corrections: (The following items were deleted from the chart) 15:46 14:35 COVID-19/FLU [id number] ordered. EDVA EDVA
--- NOTE | 2021-10-09 15:27 | ER ---
Nurse's Notes [facility] Name: Tiffany Quinn Age: 51 yrs Sex: Female : 1970 Arrival Date: 10/09/2021 Time: 14:14 Bed Treatment Private MD: Diagnosis: Pain in joint-Bilateral hand;Arthralgias Presentation: 10/09 14:30 Chief complaint: Patient states: migraine headache x 3 days, cough and sore throat, N/D vg1 x 1week. Coronavirus screen: Vaccine status: Patient reports receiving the 2nd dose of the covid vaccine. Client denies travel out of the [place] in the last 14 days. Ebola Screen: Patient negative for fever greater than or equal to 101.5 degrees Fahrenheit, and additional compatible Ebola Virus Disease symptoms. Initial Sepsis Screen: Does the patient meet any 2 criteria? No. Patient's initial sepsis screen is negative. Does the patient have a suspected source of infection? No. Patient's initial sepsis screen is negative. Risk Assessment: Do you want to hurt yourself or someone else? Patient reports no desire to harm self or others. Onset of symptoms was October 02, 2021. 14:30 Method Of Arrival: Ambulatory vg1 14:30 Acuity: MANUEL 3 vg1 Triage Assessment: 14:32 Headache History: The patient has had previous headaches and this one is more severe vg1 than previous episodes. General: Appears in no apparent distress. uncomfortable, Behavior is cooperative. Pain: Complains of pain in head and throat Pain currently is 9 out of 10 on a pain scale. Pain began x 1 week Also complains of nausea. Neuro: Level of Consciousness is awake, alert, obeys commands, Oriented to person, place, time, situation. Respiratory: Airway is patent Respiratory effort is even, unlabored. 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 - Social history:: Smoking status: Patient denies any tobacco usage or history of. Screenin:48 Abuse screen: Denies threats or abuse. Denies injuries from another. Nutritional ww screening: No deficits noted. Tuberculosis screening: No symptoms or risk factors identified. Fall Risk None identified. Assessment: 15:47 General: Appears in no apparent distress. comfortable, Behavior is calm, cooperative, ww appropriate for age. 15:48 Pain: Complains of pain in face. Neuro: Level of Consciousness is awake, alert, obeys ww commands, Oriented to person, place, time, situation, Appropriate for age Gait is steady, Speech hoarse. Cardiovascular: No deficits noted. Capillary refill < 3 seconds fingers. Respiratory: Airway is patent Respiratory effort is even, unlabored, Respiratory pattern is regular, symmetrical. GI: No deficits noted. No signs and/or symptoms were reported involving the gastrointestinal system. : No deficits noted. No signs and/or symptoms were reported regarding the genitourinary system. Derm: No deficits noted. Skin is intact, is healthy with good turgor, Skin is pink, warm \T\ dry. Vital Signs: 14:30 BP 112 / 70; Pulse 88; Resp 16; Temp 98.8; Pulse Ox 100% ; Weight 71.67 kg; Height 5 vg1 ft. 1 in. (154.94 cm); Pain 9/10; 15:48 BP 123 / 60; Pulse 85; Resp 18; Pulse Ox 97% on R/A; ww 14:30 Body Mass Index 29.85 (71.67 kg, 154.94 cm) vg1 [place] Coma Score: 15:48 Eye Response: spontaneous(4). Verbal Response: oriented(5). Motor Response: obeys ww commands(6). Total: 15. ED Course: 14:14 Patient arrived in ED. as 14:32 Triage completed. vg1 14:32 Arm band placed on. vg1 14:35 COVID swab sent to lab. Flu and/or RSV swab sent to lab. Strep swab sent to lab. vg1 14:50 Demarcus Mancilla MD is Attending Physician. kdr 15:10 Roxana Young RN is Primary Nurse. ww 15:48 Patient has correct armband on for positive identification. Bed in low position. Call ww light in reach. 15:48 No provider procedures requiring assistance completed. Patient did not have IV access ww during this emergency room visit. Administered Medications: 15:46 Drug: UltRAM (traMADol) 50 mg Route: PO; ww Outcome: 15:27 Discharge ordered by . kdr 16:05 Discharged to home ambulatory. ww 16:05 Condition: stable 16:05 Discharge instructions given to patient, Instructed on discharge instructions, follow up and referral plans. medication usage, safety practices, Demonstrated understanding of instructions, follow-up care, medications, Prescriptions given X 1. 16:06 Patient left the ED. ww Signatures: Demarcus Mancilla MD MD kdr Martinez, Amelia as Garcia, Victoria, RN RN 1 Roxana Young RN RN ww
[2021-10-09] MEDS ORDERED: TRAMADOL HCL 50 MG TAB ONE (15:43)
[2021-10-09 16:08] LABS: SARS-COV-2 RT PCR NEGATIVE (NEGATIVE)
[2021-10-09 16:40] VITALS: TEMP 98.8
[2021-10-09 16:42] VITALS: BP 123/60; O2SAT 97
== END 2021-10-09 16:06 | disposition home or self-care (01) ==
LOC: ER 14:12 → SUPCPDRO 14:12 → ER 16:06
DX: M25.542 Pain in joints of left hand (principal); M25.541 Pain in joints of right hand; R51.9 Headache, unspecified; R05.9 Cough, unspecified; Z20.822 Contact with and (suspected) exposure to COVID-19
CPT/HCPCS: 87070; 87081; 0240U; 99283

== ENCOUNTER 2021-10-11 13:03 | Emergency (ER) | payer OTHER ==
--- OUTSIDE RECORDS SUMMARY | 2021-10-11 13:11 | XMS REPORT | Continuity of Care Document ---
:1970 Author Organization [facility] t Address [address] [place] [address] Care Team Providers Name Role Phone UNKNOWN [...] Effective Date Expiration Date S [facility] OF [place] - [phone] 2020 [place] 00:00:00 (MEDICARE REPLACEMENT/ADVANT AGE - HMO) Problems Condition Condition Condition Status Onset Resolution Last Treating Co mments Source Name Details Category Date Date Treatment Clinician Date LOW PB Diagnosis Active 2019-01-22 Mem oria 01-21 01:52:00 l LOW PB 00:00: Y[place] 00 Active 01/21/2019 [place] INFECTIOUS Diagnosis Active 2019-02-06 Memoria GASTROENTE 01-21 08:58:00 l RITIS AND 00:00: [place] COLITIS INFECTIOUS 00 GASTROENTE RITIS AND COLITIS Active 01/21/2019 [facility] Irregular Irregular Disease Active Uni vers menstrual menstrual 8-15 ity of cycle cycle 00:00: [address] Skin Skin Disease Active Univers lesion lesion 8-15 ity of 00:00: [address] Psychiatri Psychiatri Disease Active U nivers c disorder c disorder 8-15 it y of 00:00: [address] Well woman Well woman Disease Active U nivers exam with exam with 8-15 ity of routine routine 00:00: [place] gynecologi gynecologi 00 Me dical nicky exam nicky exam Branch INFECTIOUS Diagnosis Active 2019-02-06 Memoria GASTROENTE 08:58:00 l RITIS AND Yonis COLITIS, INFECTIOUS GASTROENTE RITIS AND COLITIS, Active [facility] Allergies, Adverse Reactions, Alerts Allergy Allergy Status Severity Reaction(s) Onset Inactive Treating Comm ents Source Name Type Date Date Clinician NO KNOWN Drug Active Univers ALLERGIE Class ity of S [facility] Phenerga Phenerga Active [place] winifred [place] Social History Social Habit Start Date Stop Date Quantity Comments Source History of Cigarette Smoker Universi ty of tobacco use [facility] Tobacco Comment 2-[address] [facility] Exposure to Not sure [place] of SARS-CoV-2 [facility] (event) [place] Tobacco use and 2016-06-08 2016-06-08 [facility]00 00:00:00 [facility] Alcohol intake 2016-06-08 2016-06-08 0 /d University of 00:00:00 00:00:00 [facility] Sex Ass[birth year] At [birth year] Universit y of 00:00:00 00:00:00 [facility] Smoking Status Start Date Stop Date Source Social History 2019-01-22 05:00:12 [facility] Her urena Current some day smoker 2016-06-08 00:00:00 [facility] Medications Ordered Filled Start Stop Current Ordering Indication Dosage Frequency Signature Comments Components Source Medication Medication Date Date Medication? Clinician (SIG) Name Name cefTRIAXone 2020-10- No 1000mg 1,000 mg, Univers (ROCEPHIN) 17 11-17 IV ity of 1,000 mg in 08:30: 08:01 [place], [place] NaCl 0.9% 00 :00 ONCE, 1 [...] 09/09/21 at 2330, RANDA amoxicillin 2020-10 Yes [id number] 500mg Take 1 Univers 500 mg 11-10 capsule by ity of capsule 00:00: mouth 3 [place] 00 (three) Medical times Branch daily. ondansetron 2019-10- No 4mg 4 mg, [facility] ers (ZOFRAN-ODT 12-01 Oral, ity of ) 15:15: 14:16 ONCE, 1 [place] disintegrat 00 :00 dose, Mon Med ical ing tablet 09/30/20 at [facility] 4 mg 0915, Routine ondansetron 2019-10- No 4mg 4 mg, [facility] ers (ZOFRAN-ODT 12-01- Oral, ity of ) 14:30: 13:32 ONCE, 1 [place] disintegrat 00 :00 dose, Mon Med ical ing tablet 09/30/20 at [facility] nc 4 mg 0830, Routine ondansetron 2019-10 Yes [id number] 4mg Take 1 Univers 4 mg 2-07 tablet by ity of disintegrat 00:00: mouth [place] ing tablet 00 every 8 Medica l (eight) Branch hours as needed for Nausea and Vomiting (N/V). ondansetron 2019-10 Yes [id number] 4mg Take 1 Univers 4 mg 2-07 tablet by ity of disintegrat 00:00: mouth [place] ing tablet 00 every 8 Medica l (eight) Branch hours as needed for Nausea and Vomiting (N/V). ondansetron 2019-10 Yes [id number] 4mg Take 1 Univers 4 mg 2-07 tablet by ity of disintegrat 00:00: mouth [place] ing tablet 00 every 8 Medica l (eight) Branch hours as needed for Nausea and Vomiting (N/V). ondansetron 2019-10 Yes [id number] 4mg Take 1 Univers 4 mg 2-07 tablet by ity of disintegrat 00:00: mouth [place] ing tablet 00 every 8 Medica l (eight) Branch hours as needed for Nausea and Vomiting (N/V). ciprofloxac 2019 Yes 500 mg = 1 Memoria in 500 mg 4-04 tab, PO, l oral tablet 17:35: [id number], X [place]on[place] 00 4 day, # 8 [...] 4-04 tab, PO, l oral tablet 17:35: [id number], X [place] 00 4 day, # 8 tab, 0 [...] s with feeding tube less than 14 Bulgarian (Dobhoff, J-tube etc) and pediatric and patients. Potassium No Notes: Memori a Chloride 4-03 (Same as: l 13:26: K-Dur 20) [place] "Do Not Crush" Give with food and full glass of water For patients unable to swallow tablet, dissolve in one half glass of water. Allow about 2 minutes for the tablets to disintegra te. Stir before giving to prepare slurry and administer . Please exclude Patient s with feeding tube less than 14 [place]ian (Dobhoff, J-tube etc) and pediatric and patients. Strattera No 0.5 mg/kg, Me moria 01-24 Route: PO, l 14:00: QAM, Yonis Dosing Weight 75, kg, Start date: 01/24/19 9:00:00 CDT, Duration: 30 day, Stop date: 02/22/19 9:00:00 CDT Strattera 0 No 0.5 mg/kg, Me moria 402 Route: PO, l 14:00: QAM, [place] 00 Dosing Weight 75, kg, Start date: [...] Memoria 4- (Same as: l 15:00: Flagyl) [place] 00 Take with food/ avoid alcohol Cipro No Notes: February Memori a 4- interfere l 15:00: w/enteral [place] 00 feedings - Take 1 hr before [...] PO, ONCE, l mEq oral 14:20: 0 [place] tablet, 00 Refill(s) extended release Metronidazo No 500 mg, Mem oria le 500 MG 4-01 PO, l Oral Tablet 14:20: [id number], 0 [place] [Flagyl] 00 Refill(s) Ciprofloxac No 500 mg, Mem oria in 500 MG 01 PO, l Oral Tablet 14:20: [id number], 0 [place] [Cipro] 00 Refill(s) potassium Yes 40 mEq, Memor ia chloride 20 -01 PO, ONCE, l mEq oral 14:20: 0 [place] tablet, 00 Refill(s) extended release Metronidazo No 500 mg, Mem oria le 500 MG 4-01 PO, l Oral Tablet 14:20: [id number], 0 H [place] [Flagyl] 00 Refill(s) Ciprofloxac No 500 mg, Mem oria in 500 MG 4-01 PO, l Oral Tablet 14:20: [id number], 0 [place] [Cipro] 00 Refill(s) Potassium No [...] s with feeding tube less than 14 Bulgarian (Dobhoff, J-tube etc) and pediatric and patients. [...] s with feeding tube less than 14 Bulgarian (Dobhoff, J-tube etc) and pediatric and patients. [...] tab, PO, l Tablet 21:08: BID, 0 [place] [Risperdal] 00 Refill(s) Strattera Yes 0.5 mg/kg, [...] tab, PO, l Tablet 21:08: BID, 0 [place] [Risperdal] 00 Refill(s) Zosyn No Notes: Memoria [...] oria 3-31 to exceed l 15:03: 400mg/day. [place] 00 (Same As: Ultram) Tramadol No Notes: [...] 01-22 Route: IM, l 09:47: Drug form: [place] 00 PDR/INJ, PRN, Dosing Weight 75.994, kg, [...] 01-22 Route: IM, l 09:47: Drug form: [place] PDR/INJ, PRN, Dosing Weight 75.994, kg, PRN Blood Glucose Results, Start date: 01/22/19 4:47:00 CDT, Duration: 30 day, Stop date: 02/21/19 4:46:00 CDT Dextrose 2018- No 12.5 gm, Memor ia 50% Syringe 3-31 25 mL, l 09:47: Route: [place] 00 IVP, Drug Form: INJ, Dosing Weight [...] moria IV 3-31 1,000 l 08:52: ml/hr, [place] 00 Infuse Over: 1 hr, Route: IV, [...] 0.9% 3-31 Same as: l 04:52: BD [place] Posiflush Sterile NS (Bolus) No 1,000 mL, Me moria IV 3-31 1,000 l 04:51: ml/hr, [place] 00 Infuse Over: 1 hr, Route: IV, 1,000, Drug form: INJ, ONCE, Priority: STAT, Dosing Weight 75.994 kg, Start date: 01/21/19 23:51:00 CDT, Stop date: 01/21/19 23:51:00 CDT NS (Bolus) No 1,000 mL, Me moria IV 01-22 1,000 l 04:51: ml/hr, [place] 00 Infuse Over: 1 hr, Route: IV, [...] 19:02: [place] (CITALOPRAM 27 Medical ORAL) Branch ibuprofen 2016-0 Yes 200mg Take 200 Uni vers (ADVIL) 200 8-15 mg by ity of mg tablet 14:02: mouth [place] [address] every 6 Medical (six) Branch hours as needed. CLONAZEPAM 2016-0 Yes Take by Uni vers (KLONOPIN 8-15 mouth. ity of ORAL) 14:02: [address] Branch CITALOPRAM 2016-0 Yes Take by Uni vers HYDROBROMID 8-15 mouth. ity of E 14:02: [place] (CITALOPRAM 27 Medical ORAL) Branch ibuprofen 2016-0 Yes 200mg Take 200 Uni vers (ADVIL) 200 8-15 mg by ity of mg tablet 14:02: mouth [place] [address] every 6 Medical (six) Branch hours as needed. CLONAZEPAM 2016-0 Yes Take by Uni vers (KLONOPIN 8-15 mouth. ity of ORAL) 14:02: [address] Branch CITALOPRAM 2016-0 Yes Take by Uni vers HYDROBROMID 8-15 mouth. ity of E 14:02: [place] (CITALOPRAM 27 Medical ORAL) Branch ibuprofen 2016-0 Yes 200mg Take 200 Uni vers (ADVIL) 200 8-15 mg by ity of mg tablet 14:02: mouth [place] [address] every 6 Medical (six) Branch hours as needed. CLONAZEPAM 2016-0 Yes Take by Uni vers (KLONOPIN 8-15 mouth. ity of ORAL) 14:02: [place] [address] Medical Branch CITALOPRAM 2016-0 Yes Take by Uni vers HYDROBROMID 8-15 mouth. ity of E 14:02: [place] (CITALOPRAM 27 Medical ORAL) Branch misoprostol 2016-0 [...] 138 mm[Hg] Univer sity of [facility] Diastolic blood 2021-09-10 08:01:00 97 mm[Hg] Unive rsity of [facility] Heart rate 2021-09-10 08:01:00 87 /min [facility] Respiratory rate 2021-09-10 08:01:00 20 /min [facility] saturation in 2021-09-10 08:01:00 98 /min University of Arterial blood by [place] [facility] Pulse oximetry Branch Body temperature 2021-09-10 04:28:51 37.17 Ruthann [facility] Body height 2021-09-10 04:26:00 154.9 cm [facility] Body weight 2021-09-10 04:26:00 81.647 kg [facility] BMI 2021-09-10 04:26:00 34.01 kg/m2 [facility] Systolic blood 2021-09-09 20:06:00 150 mm[Hg] Univer sity of [facility] Diastolic blood 2021-09-09 20:06:00 89 mm[Hg] Unive rsity of [facility] Heart rate 2021-09-09 20:06:00 108 /min [facility] Body temperature 2021-09-09 20:06:00 37.22 Ruthann [facility] Res[facility] rate 2021-09-09 20:06:00 18 /min [facility] O[facility] saturation in 2021-09-09 20:06:00 99 /min University of Arterial blood by [employer] nicky Pulse oximetry Branch Body weight 2021-09-09 20:05:00 81.647 kg Universi ty of [place] [facility] BMI 2021-09-09 20:05:00 32.40 kg/m2 Universi ty of [place] [facility] Systolic blood 2020-09-30 14:00:00 126 mm[Hg] Univer sity of pressure [place] [facility] Diastolic blood 2020-09-30 14:00:00 84 mm[Hg] Unive rsity of pressure [place] [facility] Heart rate 2020-09-30 14:00:00 79 /min Universi ty of [place] [facility] Oxygen saturation in 2020-09-30 14:00:00 98 /min University of Arterial blood by [facility] nicky Pulse oximetry Branch Body temperature 2020-09-30 13:26:00 37.22 Ruthann Univ ersity of [place] [facility] Respiratory rate 2020-09-30 13:26:00 16 /min Univ ersity of [place] [facility] Body weight 2020-09-30 13:26:00 72.576 kg Universi ty of [place] [facility] BMI 2020-09-30 13:26:00 28.80 kg/m2 Universi ty of [place] [facility] Systolic blood 2020-09-30 14:00:00 126 mm[Hg] Univer sity of pressure [place] [facility] Diastolic blood 2020-09-30 14:00:00 84 mm[Hg] Unive rsity of pressure [place] [facility] Heart rate 2020-09-30 14:00:00 79 /min Universi ty of [place] [facility] Oxygen saturation in 2020-09-30 14:00:00 98 /min University of Arterial blood by [facility] nicky Pulse oximetry Branch Body temperature 2020-09-30 13:26:00 37.22 Urthann Univ ersity of [place] [facility] Respiratory rate 2020-09-30 13:26:00 16 /min Univ ersity of [place] [facility] Body weight 2020-09-30 13:26:00 72.576 kg Universi ty [facility] [place] [facility] BMI 2020-09-30 13:26:00 28.80 kg/m2 [facility]i ty [facility] [place] [facility] Temperature Oral (F) 2019-01-28 01:16:00 98.6 F [facility] Yonis Systolic (mm Hg) 2019-01-28 01:16:00 Estrada rial [place] Diastolic (mm Hg) 2019-01-28 01:16:00 Mem orial [place] Heart Rate 2019-01-28 01:16:00 [facility] Y[place] Respitory Rate 2019-01-28 01:16:00 Memori al [place] Systolic (mm Hg) 2019-01-27 20:42:00 Estrada rial [place] Diastolic (mm Hg) 2019-01-27 20:42:00 Mem orial Yonis Heart Rate 2019-01-27 20:42:00 Memorial [place] Respitory Rate 2019-01-27 20:42:00 Memori al [place] Temperature Oral (F) 2019-01-27 20:42:00 98.5 F Memorial [place] Systolic (mm Hg) 2019-01-27 17:00:00 Estrada rial Yonis Diastolic (mm Hg) 2019-01-27 17:00:00 Mem orial [place] Temperature Oral (F) 2019-01-27 17:00:00 98.5 F Memorial [place] Heart Rate 2019-01-27 17:00:00 [facility] [place] Respitory Rate 2019-01-27 [facility]:00 [facility] [place] Height 2019-01-22 14:35:00 157.48 cm [facility] BMI Calculated 2019-01-22 14:35:00 [facility] [place] Weight 2019-01-22 14:35:00 [facility] [place] Weight 2019-01-22 04:34:00 [facility] Procedure Date / Time Performing Clinician Source Performed URINALYSIS 2021-09-10 06:03:[address] [facility] URINE DRUG (IMMUNOASSAY) 2021-09-10 06:03:00 Neena Bradford [facility] nc SCREEN W/O REFLEX XR CHEST 1 VW 2021-09-10 04:57:[address] [facility] CREATINE KINASE 2021-09-10 04:39:[address] [facility] MAGNESIUM 2021-09-10 04:39:[address] [facility] TROPONIN I 2021-09-10 04:39:[address] [facility] COMP. METABOLIC PANEL 2021-09-10 04:39:00 Neena Bradford [facility] ([id number]) Medical [place] CBC WITH DIFF 2021-09-10 04:39:[address] [facility] PROTHROMBIN TIME / INR 2021-09-10 04:39:00 [facility] ACTIVATED PARTIAL 2021-09-10 04:39:00 Neena Bradford [facility] THRMPLAS [facility] N-TERMINAL PRO-BNP 2021-09-10 04:39:00 Neena Bradford [facility] COVID-19 (ID NOW RAPID 2021-09-10 04:39:00 [facility] TESTING) Medical Branch TROPONIN I 2021-09-09 21:49:00 [facility] COMP. METABOLIC PANEL 2021-09-09 21:49:00 [facility] Luanne [facility] ([id number]) Medical Branch LITHIUM 2021-09-09 21:49:00 [facility] CBC WITH DIFF 2021-09-09 21:49:00 [facility] CONSENT/REFUSAL FOR 2021-09-09 19:51:22 Doctor Unassigned, No Un [facility] DIAGNOSIS AND TREATMENT Name [facility] Branch URINALYSIS 2020-09-30 13:27:00 [place], [place] [facility] ADC,CLC OR LCC ONLY - 2020-09-30 13:27:00 JacksonChuy aleman [facility] INFLUENZA A & B DIRECT Medical [place] ANTIGEN COVID-19 (ID NOW RAPID 2020-09-30 13:27:[address] [place] [address] [facility] TESTING) Medical Branch Encounters Start End Encounter Admission Attending Care Care Encounter Source Date/Time Date/Time Type Type Clinicians Facility Department ID 2019-01-22 Inpatient E [facility] MED [id number] [facility] W 04:39:00 2021-09-09 2021-09-10 Emergency DENIA Bradford [id number] Univers 22:20:00 03:02:00 Neena WALSH [id number] i ty of [place] 4.2.7.2.686 [facility] [id number] [facility] nicky 084 Branch 2021-09-09 2021-09-10 Emergency X DENIA BRADFORD ERT [id number] Univers 22:20:00 03:02:[address] [facility] 2021-09-09 2021-09-10 Emergency X SANCHEZ [facility] ERT [id number] Univers 22:20:00 03:02:[address] [facility] 2021-09-09 2021-09-[address] [facility] [id number] Univers 14:07:00 17:35:00 Luanne WALSH [id number] i ty of [place] 4.2.7.2.686 [facility] [id number] [address] 2021-09-09 2021-09-09 Orders Doctor BELKYS [id number] Univers 00:00:00 00:00:00 Only Unassigned, LANA [id number] ity of [place] [facility] 4.2.7.2.686 Joe [id number] [address] 2020-09-30 2020-09-30 [facility] [id number] Univers 07:22:00 08:18:00 Chuy Walsh [id number] i ty of [place] 4.2.7.2.686 [facility] [id number] [address] 2020-09-30 2020-09-[address] [facility] [id number] 07:22:00 08:18:00 Chuy Walsh [id number] [place] 4.2.7.2.686 [place] [id number] [facility] 2020-09-30 2020-09-[address] [facility] ERT [id number] Univers 07:22:00 07:22:[address] [facility] 2020-04-05 2020-04-05 Outpatient Humaira-Mbayo VFP [facility] [id number] 05:44:00 05:44:00 _A_AH [id number] Family Practic e 2020-04-05 2020-04-05 Outpatient Humaira-Mbayo VFP VFP [id number] 05:44:00 05:44:00 _A_AH 27144 Family Practic e 2020-04-05 2020-04-05 Outpatient Humiara-Alekso VFP VFP [id number] [facility] 05:44:00 05:44:00 _A_AH 82595 Family Practic e 2020-04-05 2020-04-05 Outpatient Humaira-Alekso VFP VFP [id number] [facility] 05:44:00 05:44:00 _A_AH 52536 Family Practic e 2020-03-04 2020-03-14 Inpatient 3 Ronni Eldridge [facility] PSY [id number] 15:38:00 15:25:00 Chen[facility] 2019-12-13 2019-12-13 Outpatient Humaira-Alekso VFP VFP 79[facility]202 [facility] 07:22:00 07:22:00 _A_ [id number] Family Practic e 2019-01-22 2019-01-28 Inpatient Critical access hospital [id number] Memoria 04:33:00 04:40:00 martin [place] 00 l [facility] 2018-02-21 2018-02-20 Inpatient E [facility] [id number] [id number] 14:48:00 13:18:00 [facility] Results Test Description Test Time Test Comments Results Result Comments Source TROPONIN I 2021-09-10 05:26:53 Test Item Value Reference Range Interpretation Comme nts TROPONIN I (test code = 0.003 ng/mL See_Comment [Au tomated message] The 5861792463) system which ge nerated this result tra [...] biotin. Lab Interpretation Normal (test code = 30346-0) [id number] 05:24:16 Test Item Value Reference Range Interpretation Comments NT-proBNP (test code 35 pg/mL See_Comment [Autom ated = 6492594983) message] The system which generated this result transmitted reference range : <=125. The reference range was not used to interpret this result as normal/abnormal . PERRY (test code = PERRY) Biotin has been reported to cause a negative bias, interpret results relative to patient's use of biotin. Lab Interpretation Normal (test code = 35650-7) [facility]2021-[facility]-17 05:16:51 Test Item Value Reference Range Interpretation Comments MAGNESIUM (test code = 6719595012) 1.8 mg/dL 1.7-2.4 Lab Interpretation (test code = Normal 08082-4) [facility]OLIC PANEL ([id number])2021-09-10 05:16:31 Test Item Value Reference Range Interpretation Comments NA (test code = 139 mmol/L 135-145 9467203041) K (test code = 4.0 mmol/L 3.5-5.0 3449751236) CL (test code = 108 mmol/L 98-108 4855225647) CO2 TOTAL (test code 25 mmol/L 23-31 = 3054121772) AGAP (test code = 2-16 9791168360) BUN (test code = 14 mg/dL 7-23 7194311222) GLUCOSE (test code = 88 mg/dL 70-110 7788565454) CREATININE (test code 0.89 mg/dL 0.50-1.04 = 0291121509) TOTAL BILI (test code 0.5 mg/dL 0.1-1.1 = 3235802024) CALCIUM (test code = 10.3 mg/dL 8.6-10.6 1141916227) T PROTEIN (test code 6.9 g/dL 6.3-8.2 = 9529490084) ALBUMIN (test code = 4.3 g/dL 3.5-5.0 2311891105) ALK PHOS (test code = 72 U/L 34-122 3424300276) ALTv (test code = 17 U/L 35 1742-6) AST(SGOT) (test code 29 U/L 13-40 = 1316587058) eGFR (test code = mL/min/1.73m2 6498720999) PERRY (test code = PERRY) Association of [...] or urine or abnormalities in imaging tests). [facility] [id number] 05:16:16 Test Item Value Reference Range Interpretation Comments CK (test code = 2259599012) 267 U/L 33-194 H Lab Interpretation (test code = Abnormal 83016-2) [facility] THRMPLAS [id number] 05:05:32 Test Item Value Reference Range Interpretation Comments APTT Patient (test See_Comment [Automat ed code = 3173-2) message] The system which generated this result transmitted reference range : 23 - 38 Seconds . The reference range was not used to interpr et this result as normal/abnormal . PERRY (test code = PERRY) The [facility] patient population mean normal value for aPTT is 30 seconds. Lab Interpretation Normal (test code = 47894-7) [facility] HospitalPROTHROMBIN TIME / [id number] 05:03:30 Test Item Value Reference Range Interpretation [...] tions. Lab Interpretation (test Normal code = 70629-6) [facility] Hospital[facility] WITH [id number] 04:57:13 Test Item Value Reference Range Interpretation Comments WBC (test code = See_Comment [Automated 3790-2) message] The sy stem which generated this result transmitted reference range : 4.30 - 11.10 10*3/?L. The reference range was not used to interpret this result as normal/abnormal . RBC (test code = See_Comment [Automated 959-8) message] The sy stem which generated this [...] RDW-SD (test code = 41.2 fL 39.0-49.9 43874-6) RDW-CV (test code = 13.0 % 12.0-15.5 788-0) PLT (test code = See_Comment H [Automated 777-3) message] The sy stem which generated this result transmitted reference range : 166 - 358 10*3/ ?L. The reference r katie was not used to interpret this result as normal/abnormal . MPV (test code = 9.6 fL 9.5-12.9 50161-8) NRBC/100 WBC (test See_Comment [Automat ed code = 5673915654) message] The system which generated this result transmitted reference range : 0.0 - 10.0 /100 WBCs. The refer ence range was not u sed to interpret th is result as normal/abnormal . NRBC x10^3 (test code <0.01 See_Comment [Auto mated = 4764767077) message] The s ystem which generated this result transmitted reference range : 10*3/?L. The reference range was not used to interpret this result as normal/abnormal . GRAN MAT (NEUT) % 61.9 % (test code = 770-8) IMM GRAN % (test code 0.30 % = 4883400556) LYMPH % (test code = 26.0 % 736-9) MONO % (test code = 9.5 % 5905-5) EOS % (test code = 1.6 % 713-8) BASO % (test code = 0.7 % 706-2) GRAN MAT x10^3(ANC) 5.91 10*3/uL 1.88-7.09 (test code = 5990515881) IMM GRAN x10^3 (test 0.03 10*3/uL 0.00-0.06 code = 4618104765) LYMPH x10^3 (test code 2.48 10*3/uL 1.32-3.29 = 731-0) MONO x10^3 (test code 0.91 10*3/uL 0.33-0.92 = 742-7) EOS x10^3 (test code = 0.15 10*3/uL 0.03-0.39 711-2) BASO x10^3 (test code 0.07 10*3/uL 0.01-0.07 = 704-7) Lab Interpretation Abnormal (test code = 31176-9) [facility] HospitalJESSICA [id number] 22:24:55 Test Item Value Reference Interpretation Comments Range TROPONIN I (test 0.002 ng/mL See_Comment [Automated code = 7447297175) message] The system which generated this result [...] biotin. Lab Interpretation Normal (test code = 16974-1) [facility]21-[facility] 22:24:34 Test Item Value Reference Range Interpretation Comments [place] (test code = <0.2 0.6-1.2 L 7010162037) PERRY (test code = PERRY) Toxic Range: ? Greater than 1.2 mmol/L Lab Interpretation (test Abnormal code = 39336-3) [facility]. METABOLIC PANEL (16001)2021-09-09 22:13:54 Test Item Value Reference Range Interpretation Comments NA (test code = 139 mmol/L 135-145 3101511756) K (test code = 4.0 mmol/L 3.5-5.0 3364769483) CL (test code = 105 mmol/L 98-108 9274133574) CO2 TOTAL (test code 26 mmol/L 23-31 = 9689906245) AGAP (test code = 2-16 0607889823) BUN (test code = 11 mg/dL 7-23 2387230269) GLUCOSE (test code = 109 mg/dL 70-110 9539774609) CREATININE (test code 0.71 mg/dL 0.50-1.04 = 5283595424) TOTAL BILI (test code 0.6 mg/dL 0.1-1.1 = 4663924205) CALCIUM (test code = 10.4 mg/dL 8.6-10.6 7470941254) T PROTEIN (test code 7.6 g/dL 6.3-8.2 = 5734732340) ALBUMIN (test code = 4.7 g/dL 3.5-5.0 1481809048) ALK PHOS (test code = 78 U/L 34-122 3346161335) ALTv (test code = 19 U/L 5-35 1742-6) AST(SGOT) (test code 28 U/L 13-40 = 5523122278) eGFR (test code = mL/min/1.73m2 4842256673) PERRY (test code = PERRY) Association of [...] or urine or abnormalities in imaging tests). [facility] WITH OMEJ0093-38-04 22:03:32 Test Item Value Reference Range Interpretation Comments WBC (test code = See_Comment [Automated 1390-2) message] The sy stem which generated this [...] RDW-SD (test code = 40.2 fL 39.0-49.9 90762-2) RDW-CV (test code = 12.9 % 12.0-15.5 788-0) PLT (test code = See_Comment H [Automated 777-3) message] The sy stem which generated this result transmitted reference range : 166 - 358 10*3/ ?L. The reference r katie was not used to interpret this result as normal/abnormal . MPV (test code = 9.4 fL 9.5-12.9 L 53465-7) NRBC/100 WBC (test See_Comment [Automat ed code = 3006491299) message] The system which generated this result transmitted reference range : 0.0 - 10.0 /100 WBCs. The refer ence range was not u sed to interpret th is result as normal/abnormal . NRBC x10^3 (test code <0.01 See_Comment [Auto mated = 1744783705) message] The s ystem which generated this result transmitted reference range : 10*3/?L. The reference range was not used to interpret this result as normal/abnormal . GRAN MAT (NEUT) % 67.1 % (test code = 770-8) IMM GRAN % (test code 1.00 % = 5961975015) LYMPH % (test code = 21.4 % 736-9) MONO % (test code = 7.9 % 5905-5) EOS % (test code = 1.8 % 713-8) BASO % (test code = 0.8 % 706-2) GRAN MAT x10^3(ANC) 7.35 10*3/uL 1.88-7.09 H (test code = 5907238413) IMM GRAN x10^3 (test 0.11 10*3/uL 0.00-0.06 H code = 5045193797) LYMPH x10^3 (test code 2.34 10*3/uL 1.32-3.29 = 731-0) MONO x10^3 (test code 0.86 10*3/uL 0.33-0.92 = 742-7) EOS x10^3 (test code = 0.20 10*3/uL 0.03-0.39 711-2) BASO x10^3 (test code 0.09 10*3/uL 0.01-0.07 H = 704-7) Lab Interpretation Abnormal (test code = 45694-9) [facility] - [facility]UENZA A & B DIRECT [id number] 14:04:00 Test Item Value Reference Range Interpretation Comments Influenza A (test code = 64606-8) Negative Negative Influenza B (test code = 55993-5) Negative Negative Lab Interpretation (test code = Normal 37822-8) [facility] NOW RAPID TESTING)2020-09-30 14:03:00 Test Item Value Reference Range Interpretation Comments SARS-CoV-2 Rapid ID NOW Not Detected Not Detected (test code = 13263-4) PERRY (test code = PERRY) ID NOW COVID-19 Assay is an isothermal nucleic acid amplification test intended for the qualitative detection of nucleic acid from SARS-CoV-2 viral RNA in nasopharyngeal (TRIM TECHNICIAN) specimens. It is used under Emergency [...] indicated. Lab Interpretation Normal (test code = 50381-7) [facility] 13:55:00 Test Item Value Reference Range Interpretation Comments APPEARANCE (test code = Hazy Clear A 4903722429) COLOR (test code = Yellow Yellow 0551984748) PH (test code = 4.8-8.0 6557811109) SP GRAVITY (test code = 1.003-1.030 6744067212) GLU U QUAL (test code = Normal Normal 3846902657) BLOOD (test code = Negative Negative 8377275287) KETONES (test code = 5 mg/dL Negative A 3064456169) PROTEIN (test code = Negative Negative 2887-8) UROBILIN (test code = 2.0 mg/dL Normal A 6617942634) BILIRUBIN (test code = Negative Negative 6753866497) NITRITE (test code = Negative Negative 4605405288) LEUK ROZINA (test code = 25/uL Negative A 6748800415) RBC/HPF (test code = See_Comment [Autom ated message] 9855401071) The system Cas[employer] generated this result transmit ngozi reference range : 0 - 3 HPF. The refe rence range was not u sed to interpret th is result as normal/abnormal . WBC/HPF (test code = See_Comment [Autom ated message] 1824336381) The system [employer] generated this result transmit ngozi reference range : 0 - 5 HPF. The refe rence range was not u sed to interpret th is result as normal/abnormal . BACTERIA (test code = Few Negative A 5790697960) MUCOUS (test code = Slight Negative LPF A 0968696068) SQ EPITH (test code = HPF 9590511802) Lab Interpretation (test Abnormal code = 96907-9) [facility]PR Emsfgghbvtg2702-79-60 16:42:24 Test Item Value Reference Range Interpretation [...] = 10-24-2020 N Expiration Dt) Thyroid Stimulating Meszvao1259-51-89 08:35:16 Test Item Value Reference Range Interpretation Comments TSH (test code = TSH) 1.170 mIU/mL 0.270-4.200 Lipid Rwoez9674-76-58 08:21:19 Test Item Value Reference Range Interpretation Comments Cholesterol Total 254 mg/dL 0-200 H RISK OF HE ART (test code = DISEASEPublishe d by Cholesterol Total) [employer] Cathie lyte Optimal Borderl ine [...] calculation is LDL/HDL Ratio=L DL Calc/HDL Chol FTDAFYWRZAQA9448-32-49 08:24:008.6[facility] AhuloojAEAIYJMXHTCC0176-77-84 08:24:42857Kiadedek VweblamMRBPUJDJENAO4946-86-52 08:24:0027[facility] JZHDWIKAKCKR7365-76-86 08:24:60193Ikxswhog YmzaktmKEDJILKJRUDE2625-29-43 08:24:003.6[facility] ZjwbswwMPARNCQZXHMV5777-49-86 08:24:000.70[facility] SWFQOLWSTFCU4087-37-25 08:24:008.4[facility] EupjplbLRNJSCQERTON6478-64-75 08:24:78724Lyeykctt DhjyiiySXDLVBRTDDNK7088-68-76 08:24:0086[facility] [place] MXYCQGKLNCEQ8481-86-96 08:24:006[facility] VkkthcwRVNZQIOCWR8439-33-93 08:24:00 11.6[facility] KfqrpzaBKXMVKKBPK1946-42-42 08:24:003.78[facility]annHEMATOLOGY 2019-01-26 08:24:0013.3[facility] ZqcfcysFXCOSLXUHT6465-07-61 08:24:0034.0[facility] EzzxijoTQWTRARBBZ1795-28-55 08:24:006.3[facility] SxmadujJJZPAMTLYU6406-68-18 08:24:00 Test Item Value Reference Range Interpretation Comments MCH (test code = MCH) 30.7 pg 27.0-31.0 [facility] RknlougFWKHXTLHGG8733-86-95 08:24:0090.3[facility]annHEMATOLOGY 2019-01-26 08:24:0034.2[facility] HagclcsPAIIOFTHCL0571-29-08 08:24:61591Sqgslioe HsgeblgYPMWNEQSRS8447-27-72 08:24:007.5[facility] OmvbqsrVVMYDDPNSOMY8676-80-80 08:24:008.6[facility] EijsfdoEUPMIYJQPALW3384-88-94 08:24:53462Evytfoea Y[facility] BETFMEXZUGEW8647-79-00 08:24:0027[facility] YadhcndQNWHEBKZNWXH4760-70-81 08:24:00 139[facility] CtqggudYWWBSGKBKWXC4920-47-26 08:24:003.6[facility] BSPFPCFSVKKY5077-51-13 08:24:000.70[facility] WndtztiKHJVCBLECNSU1134-16-01 08:24:008.4[facility] PzrvqroIVOPUIRMOAKG8723-42-36 08:24:08281Roqjpysx Y[facility] XWOEMMTONQBI8389-83-95 08:24:0086[facility] SmijtnnLBBLXSODGRAN1566-59-36 08:24:00 6[facility] MtgdzyyPKTAIBVZXD6703-67-62 08:24:0011.6[facility]annHEMATOLOGY 2019-01-26 08:24:003.78[facility] VcvujdcTLNULROANN0444-76-69 08:24:0013.3[facility] KfxoltuKSSUVLUTDC8807-27-97 08:24:0034.0[facility] EgfwsnfETIYSUEVVK4957-81-47 08:24:006.3[facility] FbkrsneERJCKTPQGV1037-60-87 08:24:00 Test Item Value Reference Range Interpretation Comments MCH (test code = MCH) 30.7 pg 27.0-31.0 [facility] ZzoyfjqFDREYLNOQW7482-31-20 08:24:0090.3[facility]annHEMATOLOGY 2019-01-26 08:24:0034.2[facility] PjwdrgyZFQFVGSOQH6643-85-87 08:24:07118Mjgqfrtf HxsokfqYBMAAAUURT6837-10-57 08:24:007.5[facility] HermannCHEM WUZWR4871-99-88 09:14:42635Etxamyyo HermannCHEM AJABL1218-01-51 09:14:008.5[facility] HermannCHEM FAGEL7417-47-17 09:14:0013.3[facility]annCHEM JBTXJ3650-40-82 09:14:0024 [facility]annCHE[facility] NJNJA1432-91-29 09:14:71617Zflkecdm [facility]annCHEM PANEL 2019-01-25 09:14:0081[facility]annCHEM MAMQS4013-95-39 09:14:002[facility]annCHEM XUMQS9557-29-80 09:14:003.3[facility]annCHEM JBZTN3245-42-73 09:14:000.60[facility]annCHEM UIYVM8202-94-35 09:14:64141Bsulxjpf [facility]annCHEM BMUGJ0255-64-46 09:14:24894Fgxdiicx HermannCHEM VAURB3287-81-86 09:14:008.5 [facility]annCHE[facility] TZVRK7072-09-44 09:14:0013.3[facility]annCHEM PANEL 2019-01-25 09:14:0024[facility]annCHEM QRIOL3849-69-50 09:14:93528Olcoawnb HermannCHEM OPOSX5267-93-54 09:14:0081[facility]annCHEM PGTCS9253-13-26 09:14:002[facility]annCHEM GNFAG9053-54-37 09:14:003.3[facility]annCHEM PGAJV5514-65-21 09:14:000.60[facility]annCHEM KEFJJ7448-80-54 09:14:63493 [facility]annMOLECULAR FWBWGBUVIB6283-15-20 16:22:00Negative (01/23/19 11:22 AM)[facility]annMOLECULAR DQMSSIXVOI0619-51-56 16:22:00Negative (01/23/19 11:22 AM)[facility]annCHEM ANCAB5250-82-54 15:42:002.76[facility]annCHEM PANEL 2019-01-23 15:42:002.76[facility]annCHEM OQRYM6795-26-34 12:32:000.9[facility]annCHEM BEHGE9972-45-97 12:32:000.9[facility]annCHEM UCSFZ9545-22-55 10:50:002.0[facility]annCHEM VRXWU0417-46-66 10:50:86103Gdkykaid HermannCHEM XWGTG7615-90-34 10:50:0023[facility]annCHEM IZKFB5651-46-09 10:50:41552 [facility]annCHEM PACNG0992-85-23 10:50:003.1[facility]annCHEM PANEL 2019-01-23 10:50:38262Clgxrnbd HermannCHEM DJOLZ8957-09-89 10:50:005[facility]annCHEM CTAHX5258-10-21 10:50:000.50[facility]annCHEM GXWCC8642-83-67 10:50:007.8[facility]annCHEM ZKBCW4097-53-54 10:50:0083[facility]annCHEM PDWHF6487-04-14 10:50:0010.1[facility] PsaqxetXVQKHIOTBN3395-93-50 10:50:000.2 [facility] QtkdidjKGCYXPTCKY3988-06-47 10:50:000.8[facility] HermannHEMATOLOGY 2019-01-23 10:50:005.5[facility] HyauuskMZXEYGQFRS9380-23-01 10:50:002.2[facility] AspfrwzIGGWLSGSGW7396-88-75 10:50:000.1[facility] YlllunyBSIGQTWVPH0254-96-42 10:50:0063.6[facility] HtzilvxGJXSMCNQEX7264-04-83 10:50:008.9[facility] OZHCGFHZEA9690-19-00 10:50:002.3[facility] DhvtqjgUHGSBIXPEA8878-72-44 10:50:00 Normal (01/23/19 5:50 AM)[facility] VwrqiwgWGXHFOMHBZ7740-73-45 10:50:00Normal (01/23/19 5:50 AM)[facility] RcuhrkuLTVLWWPSJJ9756-64-22 10:50:0025.1[facility] WmwgmdiYFSYFOQSAH0561-70-29 10:50:0013.1[facility] KinrqqaBSGSRKIUZM6581-04-77 10:50:21424Tfjksvhn RqivhxdXRRPWSSWFG3256-46-05 10:50:007.7[facility] [place] [place] XAUEQZLOBR7807-65-31 10:50:008.6[facility] XxforfqTENDGHOHYS8766-91-79 10:50:00 10.0[facility] ZutkzurTYEXGZTIAS0867-45-44 10:50:0034.[facility]annHEMATOLOGY 2019-01-23 10:50:0028.7[facility] GvmqacnIRCCLTMXSV7569-09-25 10:50:0087.8[facility] IsyecewFWJURGWOLS5573-88-87 10:50:33784Hvnrutno PrcebfgGKBORWLYQA6549-21-07 10:50:00 Test Item Value Reference Range Interpretation Comments MCH (test code = MCH) 30.4 pg 27.0-31.0 [facility] HvpxnvyXVLQSSJPIC5844-27-45 10:50:003.27[facility]annHEMATOLOGY 2019-01-23 10:50:007.7[facility] WozdvdfLDHYQAMHGN3042-46-00 10:50:008.6[facility] BdkhzmuMOXGONHZCA5734-14-03 10:50:0010.0[facility] FrbsoavCWJBXXWFPE7464-37-73 10:50:0034.6[facility] QpqrqtpUTAZYECTAX2463-05-02 10:50:0028.7[facility] [place] [place] KXVUYFRRGV2825-94-88 10:50:0087.8[facility] SiluspfAFYXUDLNRA8200-85-13 10:50:00 Test Item Value Reference Range Interpretation Comments MCH (test code = MCH) 30.4 pg 27.0-31.0 [facility] TuswgcpDZTRXLXTUM1665-90-49 10:50:003.27[facility] HermannCHEM PANEL 2019-01-23 10:50:002.0[facility]annCHEM FHXXK2109-66-06 10:50:27222Flqkgbvw [facility]annCHE[facility] IUSWU1842-23-96 10:50:0023[facility]annCHEM ORCMK5829-83-56 10:50:90774Xwblcjtm [facility]CHE[facility] HLBBL3177-84-45 10:50:003.1[facility]annCHEM URQOZ0405-86-84 10:50:04480Lqrjhfvh [facility]CHE[facility] YVXNB5016-51-56 10:50:005 [facility]annCHE[facility] JCBBO0042-94-25 10:50:000.50[facility]annCHEM PANEL 2019-01-23 10:50:007.8[facility]annCHEM VFJPZ5989-83-16 10:50:0083[facility]annCHEM PUUFB4908-87-73 10:50:0010.1[facility] YmeycwlJSZXIVJXON6421-12-14 10:50:000.2[facility] ZtmspraDNFGMZFQZY0790-77-15 10:50:000.8[facility] [place] XAXFLWIOIW3740-71-21 10:50:005.5[facility] QijwsvaERUIYTFDBV3087-00-81 10:50:002.2 [facility] QmxqhgdAEFJIGPUAU0673-25-76 10:50:000.1[facility]annHEMATOLOGY 2019-01-23 10:50:0063.6[facility] UybaztbADKKRVWDVA0136-11-78 10:50:008.9[facility] OszyhyrAKZSSBCOEY4177-02-37 10:50:002.3[facility] FruibogPCJMRGCXKJ6352-60-40 10:50:00Normal (01/23/19 5:50 AM)[facility] ZqzorqyUXCZPQOHRH0261-69-99 10:50:00 Normal (01/23/19 5:50 AM)[facility] IubavvkKSLZODNJFX5313-65-05 10:50:0025.1[facility] HpyfirkXEUUXHFVUN3886-50-98 10:50:0013.1[facility] HermannCHEM STBLY6059-63-06 11:32:002.4[facility]annCHEM OYAWS3741-34-06 11:32:002.4[facility]annCHEM JPHTF4342-76-53 09:04:003.0[facility]annCHEM HKUAF1135-25-24 09:04:003.0 [facility] AND DQDXW9003-86-80 07:14:00 Test Item Value Reference Range Interpretation Comments UA Spec Grav (test code = UA Spec 1.014 1 Grav) [facility] DDWQD8668-43-24 07:14:00 Test Item Value Reference Range Interpretation Comments UA pH (test code = UA pH) 6.0 1 5.0-8.0 [facility] ZWIQQ3200-04-02 07:14:00Negative (01/22/19 2:14 AM) [facility] EOUGW4534-55-94 07:14:00Negative *NA*(01/22/19 2:14 AM) [facility] TKVEH1977-16-32 07:14:00Negative *NA*(01/22/19 2:14 AM) [facility] DPEUZ0650-90-68 07:14:00Negative *NA*(01/22/19 2:14 AM) [facility] BYIOV0174-05-65 07:14:00Negative (01/22/19 2:14 AM) [facility] FNJHJ2578-58-05 07:14:00Negative (01/22/19 2:14 AM) [facility] YQMDJ8775-25-80 07:14:00Negative (01/22/19 2:14 AM) [facility] GTFJR3891-16-07 07:14:00<1[facility] IDEQN1577-84-65 07:14:0025[facility] WGUYU7849-28-40 07:14:002 [facility] JUPIQ2800-17-19 07:14:00Light Yellow *NA*(01/22/19 2:14 AM)[facility] HKJEI1552-95-76 07:14:00Clear (01/22/19 2:14 AM) [facility] TVTNB9800-17-05 07:14:00 Test Item Value Reference Range Interpretation Comments UA Spec Grav (test code = UA Spec 1.014 1 Grav) [facility] SWKBW8925-47-38 07:14:00 Test Item Value Reference Range Interpretation Comments UA pH (test code = UA pH) 6.0 1 5.0-8.0 [facility] OTUVZ5496-55-79 07:14:00Negative (01/22/19 2:14 AM) [facility] ROSYO7897-42-79 07:14:00Negative *NA*(01/22/19 2:14 AM) [facility] PZMPP1920-31-74 07:14:00Negative *NA*(01/22/19 2:14 AM) [facility] TIZIW6484-00-58 07:14:00Negative *NA*(01/22/19 2:14 AM) [facility] MMKHU7294-39-54 07:14:00Negative (01/22/19 2:14 AM) [facility] LZJPX0062-71-92 07:14:00Negative (01/22/19 2:14 AM) [facility] ARSAA0033-89-19 07:14:00Negative (01/22/19 2:14 AM) [facility] SOBSS2661-12-83 07:14:00<1[facility] KWTAX6753-54-58 07:14:0025[facility] SVOJV8618-47-40 07:14:002 [facility] ESTZK3724-22-94 07:14:00Light Yellow *NA*(01/22/19 2:14 AM)[facility] QKSHF5429-73-10 07:14:00Clear (01/22/19 2:14 AM) [facility] JwmprdlYGKYI5997-26-81 05:16:000.90[facility] SibzknfGQZRO3101-36-24 05:16:000.90[facility] GavdcitTVIWKZZHPQ5579-16-46 05:01:00 Test Item Value Reference Range Interpretation Comments PTT (test code = PTT) 25.9 s 22.9-35.8 [facility]BL[facility] B[facility] RVVWPQY7882-86-63 05:01:00Negative (01/22/19 12:01 AM) [facility]annCARDIAC UAYHKTH2334-19-70 05:01:00<0.02[facility] CARDIAC FNOLIES3440-33-10 05:01:0049[facility]annCHEM UFSTB1073-72-66 05:01:000.6[facility] HermannCHEM KQEYG5033-92-74 05:01:36084Glhjlxvp [facility]annCHEM RZAIE0690-52-80 05:01:004.0[facility]annCHEM DYQJJ1282-93-26 05:01:0017 [facility]annCHE[facility] BFWYJ9015-19-45 05:01:0025[facility]annCHEM PANEL 2019-01-22 05:01:008.1[facility]annCHEM ZTJCZ5001-28-16 05:01:00 Test Item Value Reference Range Interpretation Comments B/C Ratio (test code = B/C Ratio) 20 1 6-25 [facility]annCHE[facility] ZFOWT3383-54-89 05:01:00 Test Item Value Reference Range Interpretation Comments A/G Ratio (test code = A/G Ratio) 1.0 1 0.7-1.6 [facility]annCHE[facility] KIWVE1586-56-28 05:01:004.1[facility]annCHEM PANEL 2019-01-22 05:01:006.90[facility] WlarjjkGTKIDUNKPRRCL7772-51-46 05:01:00Negative *NA*(01/22/19 12:01 AM)[facility] QnzcilnTLOAGRMEYD6209-87-97 05:01:000.1[facility] HsowagpMVABOBNEFG6079-22-99 05:01:000.7[facility] CkpdrguMYIDZNYNXY3923-77-94 05:01:000.0[facility] CmilofjPGGTSYEOSX9971-31-11 05:01:000.0[facility] [place] [place] RMDOZWIXXA2533-32-01 05:01:000.9[facility] EgifqavWHTQCBWETQ8231-32-37 05:01:008.6 [facility] WiulaeyBCIJSSXPGV8439-28-62 05:01:000.6[facility]annHEMATOLOGY 2019-01-22 05:01:0086.5[facility] DyzwopiPHVDPGAIOY4600-08-64 05:01:005.7[facility] HdgiywzDBLGGGCRUE6272-25-12 05:01:006.9[facility] GlidneoWVMXPESCET1741-75-63 05:01:009.9[facility] JerqueeIMSMGPVHLD4604-74-59 05:01:0032.8[facility] OFFNOQSTMN3860-34-49 05:01:0013.6[facility] LbfrualIADACFUSES7026-39-69 05:01:00 443[facility] GgfrvpfMGUXCHTMGH6258-26-32 05:01:007.3[facility]annHEMATOLOGY 2019-01-22 05:01:0014.0[facility] MeuyeuyGQXSSJWSDA7428-33-40 05:01:004.85[facility] HypbiapJHVDAGSCLI8567-64-05 05:01:0042.7[facility] VqlxbvgVMQHXQWJZZ2088-81-72 05:01:00 Test Item Value Reference Range Interpretation Comments MCH (test code = MCH) 29.0 pg 27.0-31.0 [facility] AmfexssVSTVZQFDFY0140-62-30 05:01:0088.2[facility]annHEMATOLOGY 2019-01-22 05:01:00 Test Item Value Reference Range Interpretation Comments INR (test code = INR) 0.96 1 0.85-1.17 [facility] KxgwkmoFYXXMJZKIE6691-22-77 05:01:00 Test Item Value Reference Range Interpretation Comments PT (test code = PT) 12.6 s 12.0-14.7 [facility] BvrhvzsBUZYQUNKMO6802-84-11 05:01:00 Test Item Value Reference Range Interpretation Comments PTT (test code = PTT) 25.9 s 22.9-35.8 [facility]BL[facility] B[facility] QLUGROB7772-86-37 05:01:00Negative (01/22/19 12:01 AM) [facility]annCARDIAC HEQWUJX3179-50-49 05:01:00<0.02[facility] CARDIAC TBUXJVB6875-65-35 05:01:0049[facility]annCHEM UIQJI3379-19-95 05:01:000.6[facility] HermannCHEM FZHZH0975-02-93 05:01:80635Dxbqmsvq [facility]CHE[facility] SLJKN9278-72-70 05:01:004.0[facility]annCHEM VDGGO2924-31-99 05:01:0017 [facility]annCHE[facility] ZDPEK3130-92-91 05:01:0025[facility]annCHEM PANEL 2019-01-22 05:01:008.1[facility] HermannCHEM DMYIB7616-86-72 05:01:00 Test Item Value Reference Range Interpretation Comments B/C Ratio (test code = B/C Ratio) 20 1 6-25 [facility]annCHE[facility] LUTSB8316-41-29 05:01:00 Test Item Value Reference Range Interpretation Comments A/G Ratio (test code = A/G Ratio) 1.0 1 0.7-1.6 [facility]annCHE[facility] TLCQC9885-51-61 05:01:004.1[facility]annCHEM PANEL 2019-01-22 05:01:006.90[facility] XxrxyubOZQHXUMKGZOEQ3227-73-20 05:01:00Negative *NA*(01/22/19 12:01 AM)[facility] WqdbnfcKREXFRXBFY4195-68-16 05:01:000.1[facility] DawshzpNJBPCXWNZC3660-69-71 05:01:000.7[facility] KevnatnEVNKHPCFYM6901-81-37 05:01:000.0[facility] GvsadqbZGGUMBWDFM6100-65-15 05:01:000.0[facility] [place] [place] DWUMZKQFSZ9028-63-77 05:01:000.9[facility] QhzurffJVRWVZVGHD7310-72-10 05:01:008.6 [facility] PhoidksXEMDKDFNBG1000-34-69 05:01:000.6[facility]annHEMATOLOGY 2019-01-22 05:01:0086.5[facility] KajosahWPWSWOKYVC6771-44-60 05:01:005.7[facility] PpmyfoiJLPVFSYIKG2050-50-57 05:01:006.9[facility] MhatjyyRUBXDOAIFE7554-14-35 05:01:009.9[facility] ZbphsvvXKXAZLQMMY6594-88-19 05:01:0032.8[facility] [place] [place] HVKKYPPNZM2917-96-16 05:01:0013.6[facility] LrxjifeKHWIGQGQIU2397-10-90 05:01:00 443[facility] FjbeuwoNKQWCGSKFR2204-08-51 05:01:007.3[facility]annHEMATOLOGY 2019-01-22 05:01:0014.0[facility] AyljbbnTUZYWGFCJO2125-85-54 05:01:004.85[facility] YlmntudMFHSPAINZP9077-84-12 05:01:0042.7[facility] [place]ONEAFOPCFZ7077-03-09 05:01:00 Test Item Value Reference Range Interpretation Comments MCH (test code = MCH) 29.0 pg 27.0-31.0 [facility]87[facility]-81 05:01:[facility]88.2[facility] 2019-01-22 05:01:00 Test Item Value Reference Range Interpretation Comments INR (test code = INR) 0.96 1 0.85-1.17 [facility]XRHYBV[facility]Q6559-72-92 05:01:00 Test Item Value Reference Range Interpretation Comments PT (test code = PT) 12.6 s 12.0-14.7 [facility]ZI1G3398-50-71 14:36:00 Test Item Value Reference Range Interpretation [...] 0.00-0.01 N code = ETOHU) Comprehensive Metabolic Untdv7524-05-45 14:36:00 Test Item Value Reference Range Interpretation [...] the [employer],http :[email or web address].gov Urinalysis Uuxnosea0460-82-16 14:32:00 Test Item Value Reference Range Interpretation Comments Color (test code = COLOR) Yellow Yellow,Straw,Pl N yellow Clarity (test code = Clear Clear N CLAR) Specific [place] (test 1.024 1.001-1.035 N code = SPGR) [...] code = Few /HPF BACT) CBC with Dhgadxcdimbk8222-22-59 14:21:00 Test Item Value Reference Range Interpretation [...] code = ALYMPH) 3.0 K/cumm 0.5-4.6 N [place] Abs (test code = AMONO) 0.5 K/cumm 0.0-1.2 N Eos Abs (test code = AEOS) 0.19 K/cumm 0.00-0.74 N Baso Abs (test code = ABASO) 0.1 K/cumm 0.00-0.21 N
--- NOTE | 2021-10-11 13:52 | EDPHYS ---
Physician Documentation [facility] Name: Tiffany Quinn Age: 51 yrs Sex: Female : 1970 Arrival Date: 10/11/2021 Time: 13:07 Bed Treatment Private MD: Dayna Dominguez H ED Physician Manuel Ward HPI: 10/11 13:46 This 51 yrs old Female presents to ER via Ambulatory with complaints of Headache. rn 13:46 The patient complains of pain to the forehead. The patient describes the headache as rn aching. Onset: The symptoms/episode began/occurred at an unknown time. Severity of symptoms: At its worst the pain was moderate, in the emergency department the pain is unchanged. Headache History: The patient has had previous headaches and this one is similar to previous episodes. The symptoms are alleviated by nothing. the symptoms are aggravated by nothing. The patient has experienced similar episodes in the past, chronically. The patient has been recently seen by a physician:. Patient reports has been having a headache, has chronic headaches, was recently prescribed tramadol but told only to take it once a week. Came in simply today to ask a question whether she could take tramadol today as an extra dose. Denies any focal neurological complaints. Denies chest pain. Denies vision changes.. 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 - Social history:: Smoking status: Patient denies any tobacco usage or history of. - Family history:: not pertinent. - Hospitalizations: : No recent hospitalization is reported. ROS: 13:46 Constitutional: Negative for fever, chills, and weight loss, Eyes: Negative for injury, rn pain, redness, and discharge, ENT: Negative for injury, pain, and discharge, Neck: Negative for injury, pain, and swelling, Cardiovascular: Negative for chest pain, palpitations, and edema, Respiratory: Negative for shortness of breath, cough, wheezing, and pleuritic chest pain, Abdomen/GI: Negative for abdominal pain, nausea, vomiting, diarrhea, and constipation, Back: Negative for injury and pain, MS/Extremity: Negative for deformity Skin: Negative for injury, rash, and discoloration, Neuro: Negative for weakness, numbness, tingling, and seizure. Exam: 13:46 Constitutional: This is a well developed, well nourished patient who is awake, alert, rn and in no acute distress. Head/Face: Normocephalic, atraumatic. Eyes: Periorbital areas with no swelling, redness, or edema. Neck: Trachea midline, No Meningismus. Skin: Warm, dry with normal turgor. Normal color with no rashes, no lesions, and no evidence of cellulitis. MS/ Extremity: Pulses equal, no cyanosis. Neurovascular intact. Full, normal range of motion. Equal circumference. Neuro: Awake and alert, GCS 15, oriented to person, place, time, and situation. Cranial nerves II-XII grossly intact. Motor strength 5/5 in all extremities. Sensory grossly intact. Cerebellar exam normal. Normal gait. Vital Signs: 13:29 BP 133 / 89; Pulse 90; Resp 16; Temp 98.0(TE); Pulse Ox 100% on R/A; Weight 71.67 kg; ss Height 5 ft. 3 in. (160.02 cm); Pain 0/10; 13:29 Body Mass Index 27.99 (71.67 kg, 160.02 cm) ss V[place]user Coma Score: 13:46 Eye Response: spontaneous(4). Verbal Response: oriented(5). Motor Response: obeys rn commands(6). Total: 15. MDM: 13:40 Patient medically screened. rn 13:46 Differential diagnosis: hypertensive headache, migraine, tension headache, vasomotor rn headache. Data reviewed: vital signs, nurses notes, old medical records, and as a result, I will discharge patient. Counseling: I had a detailed discussion with the patient and/or guardian regarding: the historical points, exam findings, and any diagnostic results supporting the discharge/admit diagnosis, the need for outpatient follow up, to return to the emergency department if symptoms worsen or persist or if there are any questions or concerns that arise at home. Response to treatment: the patient's symptoms have mildly improved after treatment, and as a result, I will discharge patient. Special discussion: I discussed with the patient/guardian in detail that at this point there is no indication for admission to the hospital. It is understood, however, that if the symptoms persist or worsen the patient needs to return immediately for re-evaluation. ED course: Patient well-appearing, normal vital signs, normal exam, simply wanted to know if it was safe to take an extra tramadol today. Told her she can take it when she gets home that I did not want her driving after taking pain medication and she understands.. 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
--- NOTE | 2021-10-11 13:52 | ER ---
Nurse's Notes [facility] Name: Tiffany Quinn Age: 51 yrs Sex: Female : 1970 Arrival Date: 10/11/2021 Time: 13:07 Bed Treatment Private MD: Dayna Dominguez H Diagnosis: Headache Presentation: 10/11 13:29 Chief complaint: Patient states: Headache and to pain that has been ongoing. Pt reports ss she was seen in ER for this already and was given Tramadol, but it was prescribed to take one tablets every 5-7 days and she was curious if she can take one now. Coronavirus screen: Client denies travel out of the [place] in the last 14 days. Ebola Screen: Patient denies exposure to infectious person. Patient denies travel to an Ebola-affected area in the 21 days before illness onset. Initial Sepsis Screen: Does the patient meet any 2 criteria? No. Patient's initial sepsis screen is negative. Does the patient have a suspected source of infection? No. Patient's initial sepsis screen is negative. Risk Assessment: Do you want to hurt yourself or someone else? Patient reports no desire to harm self or others. Onset of symptoms is unknown. 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 - Social history:: Smoking status: Patient denies any tobacco usage or history of. - Family history:: not pertinent. - Hospitalizations: : No recent hospitalization is reported. Screenin:52 Abuse screen: Denies threats or abuse. Denies injuries from another. Nutritional ss screening: No deficits noted. Tuberculosis screening: No symptoms or risk factors identified. Never had TB. Fall Risk None identified. Assessment: 13:52 General: Appears in no apparent distress. comfortable, Behavior is calm, cooperative. ss Pain: Complains of pain in head (forehead), toe Pain currently is 5 out of 10 on a pain scale. Neuro: Level of Consciousness is awake, alert, obeys commands. Cardiovascular: Capillary refill < 3 seconds is brisk in bilateral fingers. Cardiovascular: Pulses are palpable in right radial artery and left radial artery. Respiratory: Airway is patent Respiratory effort is even, unlabored, Respiratory pattern is regular, symmetrical. GI: No signs and/or symptoms were reported involving the gastrointestinal system. : No signs and/or symptoms were reported regarding the genitourinary system. EENT: Nares are clear Oral mucosa is moist. Throat is clear. Derm: Skin is intact, is healthy with good turgor, Skin is dry, Skin is pink, warm \T\ dry. normal. Musculoskeletal: Circulation, motion, and sensation intact. Range of motion: intact in all extremities, Swelling. Vital Signs: 13:29 BP 133 / 89; Pulse 90; Resp 16; Temp 98.0(TE); Pulse Ox 100% on R/A; Weight 71.67 kg; ss Height 5 ft. 3 in. (160.02 cm); Pain 0/10; 13:29 Body Mass Index 27.99 (71.67 kg, 160.02 cm) ss [place]on Coma Score: 13:46 Eye Response: spontaneous(4). Verbal Response: oriented(5). Motor Response: obeys rn commands(6). Total: 15. ED Course: 13:07 Patient arrived in ED. mr 13:07 Dayna Dominguez DO is Private Physician. mr 13:31 Triage completed. ss 13:31 Arm band placed on right wrist. ss 13:36 Ebenezer Casanova, JIGNA is Primary Nurse. as6 13:40 Manuel Ward MD is Attending Physician. rn 13:52 Patient has correct armband on for positive identification. Bed in low position. Call ss light in reach. 14:07 No provider procedures requiring assistance completed. Patient did not have IV access as6 during this emergency room visit. Administered Medications: No medications were administered Outcome: 13:52 Discharge ordered by . rn 14:07 Discharged to home ambulatory. as6 14:07 Condition: stable 14:07 Discharge instructions given to patient, Instructed on discharge instructions, follow up and referral plans. Demonstrated understanding of instructions, follow-up care. 14:08 Patient left the ED. as6 Signatures: Vinita Gan Roman, MD MD rn Nora, Preethi, RN RN ss Ebenezer Casanova RN RN as6
[2021-10-11 14:17] VITALS: BP 133/89; TEMP 98; O2SAT 100
== END 2021-10-11 14:08 | disposition home or self-care (01) ==
LOC: ER 13:03
DX: R51.9 Headache, unspecified (principal); Z88.5 Allergy status to narcotic agent; Z88.8 Allergy status to other drugs, medicaments and biological substances
CPT/HCPCS: 99281

== ENCOUNTER 2021-10-12 18:10 | Emergency (ER) | payer OTHER ==
--- OUTSIDE RECORDS SUMMARY | 2021-10-12 18:17 | XMS REPORT | Continuity of Care Document ---
:1970 Author Organization [facility] t Address [address] [place] [address] Care Team Providers Name Role Phone UNKNOWN [...] Number Effective Date Expiration Date S [facility] OF [place] - [phone] 2020 [employer] 00:00:00 (MEDICARE REPLACEMENT/ADVANT AGE - HMO) Problems Condition Condition Condition Status Onset Resolution Last Treating Co mments Source Name Details Category Date Date Treatment Clinician Date LOW PB Diagnosis Active 2019-01-22 Mem oria 01-21 01:52:00 l LOW PB 00:00: Yon[place] 00 Active 01/21/2019 [place] INFECTIOUS Diagnosis Active 2019-02-06 Memoria GASTROENTE 01-21 08:58:00 l RITIS AND 00:00: [place] COLITIS INFECTIOUS 00 GASTROENTE RITIS AND COLITIS Active 01/21/2019 [facility] Irregular Irregular Disease Active Uni vers menstrual menstrual 8-15 ity of cycle cycle 00:00: [address] Skin Skin Disease Active Univers lesion lesion 8-15 ity of 00:00: [address] Psychiatri Psychiatri Disease Active U nivers c disorder c disorder 8-15 it y of 00:00: [address] Well woman Well woman Disease Active U nivers exam with exam with 8-15 ity of routine routine 00:00: [place] gynecologi gynecologi 00 Me dical nicky exam nicky exam Branch INFECTIOUS Diagnosis Active 2019-02-06 Memoria GASTROENTE 08:58:00 l RITIS AND Yonis COLITIS, INFECTIOUS GASTROENTE RITIS AND COLITIS, Active [facility] Allergies, Adverse Reactions, Alerts Allergy Allergy Status Severity Reaction(s) Onset Inactive Treating Comm ents Source Name Type Date Date Clinician NO KNOWN Drug Active Univers ALLERGIE Class ity of S [facility] Phenerga Phenerga Active [place] winif[place] Social History Social Habit Start Date Stop Date Quantity Comments Source History of Cigarette Smoker Universi ty of tobacco use [facility] Tobacco Comment 2-3 cigs a day [facility] Exposure to Not sure [place] of SARS-CoV-2 [facility] (event) [place] Tobacco use and 2016-06-08 2016-06-08 [facility] 00:[facility]:00 00:00:00 [facility] Alcohol intake 2016-06-08 2016-06-08 0 /d University of 00:00:00 00:00:00 [facility] Sex Assigned At [birth year] Universit y of 00:00:00 00:00:00 [facility] Smoking Status Start Date Stop Date Source Social History 2019-01-22 05:00:12 [facility] Her urena Current some day smoker 2016-06-08 00:00:00 [facility] Medications Ordered Filled Start Stop [...] 09/09/21 at 2330, RANDA amoxicillin 2020-10 Yes [id number] 500mg Take 1 Univers 500 mg 11-10 capsule by ity of capsule 00:00: mouth 3 [place] 00 (three) Medical times Branch daily. ondansetron 2019-10- No 4mg 4 mg, [facility] ers (ZOFRAN-ODT 12-01 Oral, ity of ) 15:15: 14:16 ONCE, 1 [place] disintegrat 00 :00 dose, Mon Med ical ing tablet 09/30/20 at [facility] 4 mg 0915, Routine ondansetron 2019-10- No 4mg 4 mg, [facility] ers (ZOFRAN-ODT 12-01- Oral, ity of ) 14:30: 13:32 ONCE, 1 [place] disintegrat 00 :00 dose, Mon Med ical ing tablet 09/30/20 at [facility] n[facility] 4 mg 0830, Routine ondansetron 2019-10 Yes [id number] 4mg Take 1 Univers 4 mg 2-07 tablet by ity of disintegrat 00:00: mouth [place] ing tablet 00 every 8 Medica l (eight) Branch hours as needed for Nausea and Vomiting (N/V). ondansetron 2019-10 Yes [id number] 4mg Take 1 Univers 4 mg 2-07 tablet by ity of disintegrat 00:00: mouth [place] ing tablet 00 every 8 Medica l (eight) Branch hours as needed for Nausea and Vomiting (N/V). ondansetron 2019-10 Yes [id number] 4mg Take 1 Univers 4 mg 2-07 tablet by ity of disintegrat 00:00: mouth [place] ing tablet 00 every 8 Medica l (eight) Branch hours as needed for Nausea and Vomiting (N/V). ondansetron 2019-10 Yes [id number] 4mg Take 1 Univers 4 mg 2-07 tablet by ity of disintegrat 00:00: mouth [place] ing tablet 00 every 8 Medica l (eight) Branch hours as needed for Nausea and Vomiting (N/V). ciprofloxac 2019 Yes 500 mg = 1 Memoria in 500 mg 4-04 tab, PO, l oral tablet 17:35: [id number], X Yon[place] 00 4 day, # 8 [...] 4-04 tab, PO, l oral tablet 17:35: [id number], X [place] 00 4 day, # 8 tab, 0 [...] 4-03 (Same as: l 13:26: K-Dur 20) [place] "Do Not Crush" Give with food and [...] moria 402 Route: PO, l 14:00: QAM, [place] 00 Dosing Weight 75, kg, Start date: [...] Memoria 4- (Same as: l 15:00: Flagyl) [place] 00 Take with food/ avoid alcohol Cipro No Notes: February Memori a 4- interfere l 15:00: w/enteral [place] 00 feedings - Take 1 hr before [...] PO, ONCE, l mEq oral 14:20: 0 [place] tablet, 00 Refill(s) extended release Metronidazo No 500 mg, Mem oria le 500 MG 4-01 PO, l Oral Tablet 14:20: [id number], 0 [place] [Flagyl] 00 Refill(s) Ciprofloxac No 500 mg, Mem oria in 500 MG 01 PO, l Oral Tablet 14:20: [id number], 0 [place] [Cipro] 00 Refill(s) potassium Yes 40 mEq, Memor ia chloride 20 -01 PO, ONCE, l mEq oral 14:20: 0 [place] tablet, 00 Refill(s) extended release Metronidazo No 500 mg, Mem oria le 500 MG 4-01 PO, l Oral Tablet 14:20: [id number], 0 H [place] [Flagyl] 00 Refill(s) Ciprofloxac No 500 mg, Mem oria in 500 MG 4-01 PO, l Oral Tablet 14:20: [id number], 0 Yon[place] [Cipro] 00 Refill(s) Potassium No [...] tab, PO, l Tablet 21:08: BID, 0 [place] [Risperdal] 00 Refill(s) Strattera Yes 0.5 mg/kg, [...] tab, PO, l Tablet 21:08: BID, 0 [place] [Risperdal] 00 Refill(s) Zosyn No Notes: Memoria [...] oria 3-31 to exceed l 15:03: 400mg/day. [place] 00 (Same As: Ultram) Tramadol No Notes: [...] 01-22 Route: IM, l 09:47: Drug form: [place] 00 PDR/INJ, PRN, Dosing Weight 75.994, kg, [...] 01-22 Route: IM, l 09:47: Drug form: [place] PDR/INJ, PRN, Dosing Weight 75.994, kg, PRN Blood Glucose Results, Start date: 01/22/19 4:47:00 CDT, Duration: 30 day, Stop date: 02/21/19 4:46:00 CDT Dextrose 2018- No 12.5 gm, Memor ia 50% Syringe 3-31 25 mL, l 09:47: Route: [place] 00 IVP, Drug Form: INJ, Dosing Weight [...] moria IV 3-31 1,000 l 08:52: ml/hr, [place] 00 Infuse Over: 1 hr, Route: IV, [...] 0.9% 3-31 Same as: l 04:52: BD [place] Posiflush Sterile NS (Bolus) No 1,000 mL, Me moria IV 3-31 1,000 l 04:51: ml/hr, [place] 00 Infuse Over: 1 hr, Route: IV, 1,000, Drug form: INJ, ONCE, Priority: STAT, Dosing Weight 75.994 kg, Start date: 01/21/19 23:51:00 CDT, Stop date: 01/21/19 23:51:00 CDT NS (Bolus) No 1,000 mL, Me moria IV 01-22 1,000 l 04:51: ml/hr, [place] 00 Infuse Over: 1 hr, Route: IV, [...] HYDROBROMID 8-15 mouth. ity of E 19:02: [place] (CITALOPRAM 27 Medical ORAL) Branch ibuprofen 2016-0 Yes 200mg Take 200 Uni vers (ADVIL) 200 8-15 mg by ity of mg tablet 14:02: mouth [place] [address] every 6 Medical (six) Branch hours as needed. CLONAZEPAM 2016-0 Yes Take by Uni vers (KLONOPIN 8-15 mouth. ity of ORAL) 14:02: [address] Branch CITALOPRAM 2016-0 Yes Take by Uni vers HYDROBROMID 8-15 mouth. ity of E 14:02: [place] (CITALOPRAM 27 Medical ORAL) Branch ibuprofen 2016-0 Yes 200mg Take 200 Uni vers (ADVIL) 200 8-15 mg by ity of mg tablet 14:02: mouth [place] [address] every 6 Medical (six) Branch hours as needed. CLONAZEPAM 2016-0 Yes Take by Uni vers (KLONOPIN 8-15 mouth. ity of ORAL) 14:02: [address] Branch CITALOPRAM 2016-0 Yes Take by Uni vers HYDROBROMID 8-15 mouth. ity of E 14:02: [place] (CITALOPRAM 27 Medical ORAL) Branch ibuprofen 2016-0 Yes 200mg Take 200 Uni vers (ADVIL) 200 8-15 mg by ity of mg tablet 14:02: mouth [place] [address] every 6 Medical (six) Branch hours as needed. CLONAZEPAM 2016-0 Yes Take by Uni vers (KLONOPIN 8-15 mouth. ity of ORAL) 14:02: [place] [address] Medical Branch CITALOPRAM 2016-0 Yes Take by Uni vers HYDROBROMID 8-15 mouth. ity of E 14:02: [place] (CITALOPRAM 27 Medical ORAL) Branch misoprostol 2016-0 [...] H it y of en-caff 00:00: PRN. [place] (ESGIC) 00 Medical 50-325-40 Branch mg tablet butalbital- 2015-0 Yes TK 1 TO 2 U nivers acetaminoph 8-01 T PO Q 8 H it y of en-caff 00:00: PRN. [place] (ESGIC) 00 Medical 50-325-40 Branch mg tablet butalbital- 2015-0 Yes TK 1 TO 2 U nivers acetaminoph 8-01 T PO Q 8 H it y of en-caff 00:00: PRN. [place] (ESGIC) 00 Medical 50-325-40 Branch mg tablet butalbital- 2016-0 Yes TK 1 TO 2 U nivers acetaminoph 8-01 T PO Q 8 H it y of en-caff 00:00: PRN. [place] (ESGIC) 00 Medical 50-325-40 Branch mg tablet dextroamphe 0 Yes TK 1 T PO U nivers tamine-amph 7-20 BID. ity of etamine 00:00: [place] (ADDERALL) 00 Medical 20 mg Branch tablet dextroamphe Yes TK 1 T PO U nivers tamine-amph 7-20 BID. ity of etamine 00:00: [place] (ADDERALL) 00 Medical 20 mg Branch tablet dextroamphe Yes TK 1 T PO U nivers tamine-amph 7-20 BID. ity of etamine 00:00: [place] (ADDERALL) 00 Medical 20 mg Branch tablet [...] RUST Heart rate 2021-09-10 08:01:00 87 /min [facility] Respiratory rate 2021-09-10 08:01:00 20 /min [facility] Oxygen saturation in 2021-09-10 08:01:00 98 /min University of Arterial blood by [place] [facility] Pulse oximetry Branch Body temperature 2021-09-10 04:28:51 37.17 Ruthann [facility] Body height 2021-09-10 04:26:00 154.9 cm [facility] Body weight 2021-09-10 04:26:00 81.647 kg [facility] BMI 2021-09-10 04:26:00 34.01 kg/m2 [facility] Systolic blood 2021-09-09 20:06:00 150 mm[Hg] Univer sity of RUST Diastolic blood 2021-09-09 20:06:00 89 mm[Hg] Unive rsity of RUST Heart rate 2021-09-09 20:06:00 108 /min [facility] Body temperature 2021-09-09 20:06:00 37.22 Ruthann [facility] Respiratory rate 2021-09-09 20:06:00 18 /min [facility] Oxygen saturation in 2021-09-09 20:06:00 99 /min University of Arterial blood by Mediasmart nicky Pulse oximetry Branch Body weight 2021-09-09 20:05:00 81.647 kg Universi ty of [place] [facility] BMI 2021-09-09 20:05:00 32.40 kg/m2 Universi ty [facility] [place] [facility] Systolic blood 2020-09-30 14:00:00 126 mm[Hg] Univer sity of pressure [place] [facility] Diastolic blood 2020-09-30 14:00:00 84 mm[Hg] Unive rsity of pressure [place] [facility] Heart rate 2020-09-30 14:00:00 79 /min Universi ty [facility] [place] [facility] Oxygen saturation in 2020-09-30 14:00:00 98 /min University of Arterial blood by [facility] nicky Pulse oximetry Branch Body temperature 2020-09-30 13:26:00 37.22 Ruthann Univ ersity of [place] [facility] Respiratory rate 2020-09-30 13:26:00 16 /min Univ ersity of [place] [facility] Body weight 2020-09-30 13:26:00 72.576 kg [facility]i ty [facility] [place] [facility] BMI 2020-09-30 13:26:00 28.80 kg/m2 [facility]i ty [facility] [place] [facility] Systolic blood 2020-09-30 14:00:00 126 mm[Hg] Univer sity of pressure [place] [facility] Diastolic blood 2020-09-30 14:00:00 84 mm[Hg] Unive rsity of pressure [place] [facility] Heart rate 2020-09-30 14:00:00 79 /min Universi ty [facility] [place] [facility] Oxygen saturation in 2020-09-30 14:00:00 98 /min University of Arterial blood by [facility] nicky Pulse oximetry Branch Body temperature 2020-09-30 13:26:00 37.22 Ruthann Univ ersity of [place] [facility] Respiratory rate 2020-09-30 13:26:00 16 /min Univ ersity of [place] [facility] Body weight 2020-09-30 13:26:00 72.576 kg [facility]i ty [facility] [place] [facility] BMI 2020-09-30 13:26:00 28.80 kg/m2 [facility]i ty [facility] [place] [facility] Temperature Oral (F) 2019-01-28 01:16:00 98.6 F [facility] [place] Systolic (mm Hg) 2019-01-28 01:16:00 Estrada rial [place] Diastolic (mm Hg) 2019-01-28 01:16:00 Mem orial [place] Heart Rate 2019-01-28 01:16:00 [facility] [place] Respitory Rate 2019-01-28 01:16:00 Memori al [place] Systolic (mm Hg) 2019-01-27 20:42:00 Estrada rial [place] Diastolic (mm Hg) 2019-01-27 20:42:00 Mem orial [place] Heart Rate 2019-01-27 20:42:00 [facility] [place] Respitory Rate 2019-01-27 20:42:00 Memori al [place] Temperature Oral (F) 2019-01-27 20:42:00 98.5 F [facility] [place] Systolic (mm Hg) 2019-01-27 17:00:00 Estrada rial Yonis Diastolic (mm Hg) 2019-01-27 17:00:00 Mem orial [place] Temperature Oral (F) 2019-01-27 17:00:00 98.5 F [facility] [place] Heart Rate 2019-01-27 17:00:00 [facility] [place] Respitory Rate 2019-01-27 17:00:00 [facility] [place] Height 2019-01-22 14:35:00 157.48 cm [facility] BMI Calculated 2019-01-22 14:35:00 [facility] [place] Weight 2019-01-22 14:35:00 [facility] [place] Weight 2019-01-22 04:34:00 [facility] Procedure Date / Time Performing Clinician Source Performed URINALYSIS 2021-09-10 06:03:00 Neena Bradford [facility] URINE DRUG (IMMUNOASSAY) 2021-09-10 06:03:00 Neena Bradford [facility] n[place] SCREEN W/O REFLEX XR CHEST 1 VW 2021-09-10 04:57:30 Neena Bradford [facility] CREATINE KINASE 2021-09-10 04:39:00 Neena Bradford [facility] MAGNESIUM 2021-09-10 04:39:00 Neena Bradford [facility] TROPONIN I 2021-09-10 04:39:00 Neena Bradford [facility] COMP. METABOLIC PANEL 2021-09-10 04:39:00 Neena Bradford [facility] ([id number]) Medical [place] CBC WITH DIFF 2021-09-10 04:39:00 Neena Bradford [facility] PROTHROMBIN TIME / INR 2021-09-10 04:39:00 [facility] ACTIVATED PARTIAL 2021-09-10 04:39:00 Neena Bradford [facility] THRMPLAS [facility] N-TERMINAL PRO-BNP 2021-09-10 04:39:00 Neena Bradford [facility] COVID-19 (ID NOW RAPID 2021-09-10 04:39:00 [facility] TESTING) Medical Branch TROPONIN I 2021-09-09 21:49:00 [facility] COMP. METABOLIC PANEL 2021-09-09 21:49:00 [facility] Luanne [facility] ([id number]) Medical Branch LITHIUM 2021-09-09 21:49:00 [facility] CBC WITH DIFF 2021-09-09 21:49:00 [facility] CONSENT/REFUSAL FOR 2021-09-09 19:51:22 Doctor Unassigned, No Un [facility] DIAGNOSIS AND TREATMENT Name [facility] Branch URINALYSIS 2020-09-30 13:27:00 [place], [facility] ADC,CLC OR LCC ONLY - 2020-09-30 13:27:00 JacksonChuy aleman [facility] INFLUENZA A & B DIRECT Medical B ranch ANTIGEN COVID-19 (ID NOW RAPID 2020-09-30 13:27:00 [place] Chuy [facility] TESTING) Medical Branch Encounters Start End Encounter Admission Attending Care Care Encounter Source Date/Time Date/Time Type Type Clinicians Facility Department ID 2019-01-22 Inpatient E [facility] MED [id number] [facility] W 04:39:00 2021-09-09 2021-09-10 Emergency DENIA Bradford [id number] Univers 22:20:00 03:02:00 Neena WALSH [id number] i ty of [place] 4.2.7.2.686 [facility] [id number] [facility] nicky 084 Branch 2021-09-09 2021-09-10 Emergency X DENIA BRADFORD ERT [id number] Univers 22:20:00 03:02:00 NEENA tubbs [facility] [place] [facility] 2021-09-09 2021-09-10 Emergency X [facility] ERT [id number] Univers 22:20:00 03:02:00 NEENA tubbs [facility] [place] [facility] 2021-09-09 2021-09-09 [facility] [id number] Univers 14:07:00 17:35:00 Luanne WALSH 350.1.13.10 i ty of [place] 4.2.7.2.686 [facility] [id number] [address] 2021-09-09 2021-09-09 Orders Doctor BELKYS [id number] Univers 00:00:00 00:00:00 Only Unassigned, LANA 350.1.13.10 ity of [place] [facility] 4.2.7.2.[id number] 2020-09-30 2020-09-30 [facility] [id number] Univers 07:22:00 08:18:00 Chuy Walsh 350.1.13.10 i ty of [place] 4.2.7.2.686 [facility] [id number] [address] 2020-09-30 2020-09-30 Emergency [facility] [id number] 07:22:00 08:18:00 Chuy Walsh 350.1.13.10 [place] 4.2.7.2.686 [place] [id number] [facility] 2020-09-30 2020-09-30 Emergency X [facility] ERT [id number] Univers 07:22:00 07:22:00 CHUY tubbs [facility] [place] [facility] 2020-04-05 2020-04-05 Outpatient Humaira-Mbayo VFP [facility] [address] [place] [address] 05:44:00 05:44:00 _A_AH 45488 Family Practic e 2020-04-05 2020-04-05 Outpatient Humaira-Mbayo VFP [facility] [id number] 05:44:00 05:44:00 _A_AH 77676 Family Practic e 2020-04-05 2020-04-05 Outpatient Humaira-Alekso [facility]FP [facility] [id number] [facility] 05:44:00 05:44:00 _A_AH 03862 Family Practic e 2020-04-05 2020-04-05 Outpatient Humaira-Mbmanojo [facility]FP [facility] [id number] [facility] 05:44:00 05:44:00 _A_AH 25925 Family Practic e 2020-03-04 2020-03-14 Inpatient 3 Ronni Eldridge [facility] PSY [id number] 15:38:00 15:25:00 [facility] 2019-12-13 2019-12-13 Outpatient Humaira-Alekso [facility]FP [facility] [id number] [facility] 07:22:00 07:22:00 _A_ 34436 Family Practic e 2019-01-22 2019-01-28 Inpatient [facility] [id number] Memoria 04:33:00 04:40:00 martin [place] 00 l [facility] 2018-02-21 2018-02-20 [facility] [id number] [id number] 14:48:00 13:18:00 [facility] Results Test Description Test Time Test Comments Results Result Comments Source TROPONIN I 2021-09-10 05:26:53 Test Item Value Reference Range Interpretation Comme nts TROPONIN I (test code = 0.003 ng/mL See_Comment [Au tomated message] The 4737436323) system which ge nerated this result tra [...] biotin. Lab Interpretation Normal (test code = 28981-3) [facility] [id number] 05:24:16 Test Item Value Reference Range Interpretation Comments NT-proBNP (test code 35 pg/mL See_Comment [Autom ated = 3699112992) message] The system which generated this result transmitted reference range : <=125. The reference range was not used to interpret this result as normal/abnormal . PERRY (test code = PERRY) Biotin has been reported to cause a negative bias, interpret results relative to patient's use of biotin. Lab Interpretation Normal (test code = 02257-0) [facility]21-[facility]17 05:16:51 Test Item Value Reference Range Interpretation Comments MAGNESIUM (test code = 2684626947) 1.8 mg/dL 1.7-2.4 Lab Interpretation (test code = Normal 60619-3) [facility]OLIC PANEL ([id number])2021-09-10 05:16:31 Test Item Value Reference Range Interpretation Comments NA (test code = 139 mmol/L 135-145 6955277341) K (test code = 4.0 mmol/L 3.5-5.0 6690829537) CL (test code = 108 mmol/L 98-108 8983031385) CO2 TOTAL (test code 25 mmol/L 23-31 = 6686148617) AGAP (test code = 2-16 5543477623) BUN (test code = 14 mg/dL 7-23 0398820425) GLUCOSE (test code = 88 mg/dL 70-110 6459780786) CREATININE (test code 0.89 mg/dL 0.50-1.04 = 2413727514) TOTAL BILI (test code 0.5 mg/dL 0.1-1.1 = 8661517238) CALCIUM (test code = 10.3 mg/dL 8.6-10.6 3786880204) T PROTEIN (test code 6.9 g/dL 6.3-8.2 = 8608928121) ALBUMIN (test code = 4.3 g/dL 3.5-5.0 0459349439) ALK PHOS (test code = 72 U/L 34-122 7087869881) ALTv (test code = 17 U/L 35 1742-6) AST(SGOT) (test code 29 U/L 13-40 = 0554034872) eGFR (test code = mL/min/1.73m2 7523924496) PERRY (test code = PERRY) Association of [...] or urine or abnormalities in imaging tests). [facility] [id number] 05:16:16 Test Item Value Reference Range Interpretation Comments CK (test code = 3685662683) 267 U/L 33-194 H Lab Interpretation (test code = Abnormal 16081-2) [facility] THRMPLAS [id number] 05:05:32 Test Item Value Reference Range Interpretation Comments APTT Patient (test See_Comment [Automat ed code = 3173-2) message] The system which generated this result transmitted reference range : 23 - 38 Seconds . The reference range was not used to interpr et this result as normal/abnormal . PERRY (test code = PERRY) The [facility] patient population mean normal value for aPTT is 30 seconds. Lab Interpretation Normal (test code = 04459-1) [facility] / [id number] 05:03:30 Test Item Value Reference Range Interpretation [...] tions. Lab Interpretation (test Normal code = 71312-4) [facility] WITH [id number] 04:57:13 Test Item Value Reference Range Interpretation Comments WBC (test code = See_Comment [Automated 8390-2) message] The sy stem which generated this result transmitted reference range : 4.30 - 11.10 10*3/?L. The reference range was not used to interpret this result as normal/abnormal . RBC (test code = See_Comment [Automated 019-8) message] The sy stem which generated this [...] RDW-SD (test code = 41.2 fL 39.0-49.9 89303-8) RDW-CV (test code = 13.0 % 12.0-15.5 788-0) PLT (test code = See_Comment H [Automated 777-3) message] The sy stem which generated this result transmitted reference range : 166 - 358 10*3/ ?L. The reference r katie was not used to interpret this result as normal/abnormal . MPV (test code = 9.6 fL 9.5-12.9 15449-0) NRBC/100 WBC (test See_Comment [Automat ed code = 7013113760) message] The system which generated this result transmitted reference range : 0.0 - 10.0 /100 WBCs. The refer ence range was not u sed to interpret th is result as normal/abnormal . NRBC x10^3 (test code <0.01 See_Comment [Auto mated = 3037275252) message] The s ystem which generated this result transmitted reference range : 10*3/?L. The reference range was not used to interpret this result as normal/abnormal . GRAN MAT (NEUT) % 61.9 % (test code = 770-8) IMM GRAN % (test code 0.30 % = 9170815489) LYMPH % (test code = 26.0 % 736-9) MONO % (test code = 9.5 % 5905-5) EOS % (test code = 1.6 % 713-8) BASO % (test code = 0.7 % 706-2) GRAN MAT x10^3(ANC) 5.91 10*3/uL 1.88-7.09 (test code = 4063651394) IMM GRAN x10^3 (test 0.03 10*3/uL 0.00-0.06 code = 7580057977) LYMPH x10^3 (test code 2.48 10*3/uL 1.32-3.29 = 731-0) MONO x10^3 (test code 0.91 10*3/uL 0.33-0.92 = 742-7) EOS x10^3 (test code = 0.15 10*3/uL 0.03-0.39 711-2) BASO x10^3 (test code 0.07 10*3/uL 0.01-0.07 = 704-7) Lab Interpretation Abnormal (test code = 29489-4) [facility] [id number] 22:24:55 Test Item Value Reference Interpretation Comments Range TROPONIN I (test 0.002 ng/mL See_Comment [Automated code = 0247352968) message] The system which generated this result [...] biotin. Lab Interpretation Normal (test code = 26103-5) [facility]21[facility] 22:24:34 Test Item Value Reference Range Interpretation Comments [place] (test code = <0.2 0.6-1.2 L 2000851845) PERRY (test code = PERRY) Toxic Range: ? Greater than 1.2 mmol/L Lab Interpretation (test Abnormal code = 81821-0) [facility] MET[facility]OLIC PANEL (64270)2021-09-09 22:13:54 Test Item Value Reference Range Interpretation Comments NA (test code = 139 mmol/L 135-145 3135235875) K (test code = 4.0 mmol/L 3.5-5.0 5565467524) CL (test code = 105 mmol/L 98-108 6730632142) CO2 TOTAL (test code 26 mmol/L 23-31 = 7318424940) AGAP (test code = 2-16 5762955604) BUN (test code = 11 mg/dL 7-23 0325536046) GLUCOSE (test code = 109 mg/dL 70-110 4743514443) CREATININE (test code 0.71 mg/dL 0.50-1.04 = 1892791190) TOTAL BILI (test code 0.6 mg/dL 0.1-1.1 = 9074324929) CALCIUM (test code = 10.4 mg/dL 8.6-10.6 0223006316) T PROTEIN (test code 7.6 g/dL 6.3-8.2 = 9739722074) ALBUMIN (test code = 4.7 g/dL 3.5-5.0 9713257876) ALK PHOS (test code = 78 U/L 34-122 [id number]) ALTv (test code = 19 U/L 5-35 1742-6) AST(SGOT) (test code 28 U/L 13-40 = 3645407449) eGFR (test code = mL/min/1.73m2 7256105528) PERRY (test code = PERRY) Association of [...] or urine or abnormalities in imaging tests). [facility] WITH LIAR1862-41-94 22:03:32 Test Item Value Reference Range Interpretation Comments WBC (test code = See_Comment [Automated 9390-2) message] The sy stem which generated this [...] RDW-SD (test code = 40.2 fL 39.0-49.9 58950-3) RDW-CV (test code = 12.9 % 12.0-15.5 788-0) PLT (test code = See_Comment H [Automated 777-3) message] The sy stem which generated this result transmitted reference range : 166 - 358 10*3/ ?L. The reference r katie was not used to interpret this result as normal/abnormal . MPV (test code = 9.4 fL 9.5-12.9 L 32624-6) NRBC/100 WBC (test See_Comment [Automat ed code = 8142829308) message] The system which generated this result transmitted reference range : 0.0 - 10.0 /100 WBCs. The refer ence range was not u sed to interpret th is result as normal/abnormal . NRBC x10^3 (test code <0.01 See_Comment [Auto mated = 5289291200) message] The s ystem which generated this result transmitted reference range : 10*3/?L. The reference range was not used to interpret this result as normal/abnormal . GRAN MAT (NEUT) % 67.1 % (test code = 770-8) IMM GRAN % (test code 1.00 % = 3975653301) LYMPH % (test code = 21.4 % 736-9) MONO % (test code = 7.9 % 5905-5) EOS % (test code = 1.8 % 713-8) BASO % (test code = 0.8 % 706-2) GRAN MAT x10^3(ANC) 7.35 10*3/uL 1.88-7.09 H (test code = 0050860780) IMM GRAN x10^3 (test 0.11 10*3/uL 0.00-0.06 H code = 9017384319) LYMPH x10^3 (test code 2.34 10*3/uL 1.32-3.29 = 731-0) MONO x10^3 (test code 0.86 10*3/uL 0.33-0.92 = 742-7) EOS x10^3 (test code = 0.20 10*3/uL 0.03-0.39 711-2) BASO x10^3 (test code 0.09 10*3/uL 0.01-0.07 H = 704-7) Lab Interpretation Abnormal (test code = 06625-0) [facility] - IN[facility]UENZA A & B DIRECT EZXIDKU6772-72-67 14:04:00 Test Item Value Reference Range Interpretation Comments Influenza A (test code = 73271-7) Negative Negative Influenza B (test code = 15736-4) Negative Negative Lab Interpretation (test code = Normal 76047-5) [facility]APID TESTING)2020-09-30 14:03:00 Test Item Value Reference Range Interpretation Comments SARS-CoV-2 Rapid ID NOW Not Detected Not Detected (test code = 94792-8) PERRY (test code = PERRY) ID NOW COVID-19 Assay is an isothermal nucleic acid amplification test intended for the qualitative detection of nucleic acid from SARS-CoV-2 viral RNA in nasopharyngeal ([employer]) specimens. It is used under Emergency Use [...] indicated. Lab Interpretation Normal (test code = 66443-0) [facility] 13:55:00 Test Item Value Reference Range Interpretation Comments APPEARANCE (test code = Hazy Clear A 4861618661) COLOR (test code = Yellow Yellow 3578728859) PH (test code = 4.8-8.0 6842766670) SP GRAVITY (test code = 1.003-1.030 0039624218) GLU U QUAL (test code = Normal Normal 2966499767) BLOOD (test code = Negative Negative 4927804537) KETONES (test code = 5 mg/dL Negative A 0245208005) PROTEIN (test code = Negative Negative 2887-8) UROBILIN (test code = 2.0 mg/dL Normal A 1470192999) BILIRUBIN (test code = Negative Negative 6650626487) NITRITE (test code = Negative Negative 4860458293) LEUK ROZINA (test code = 25/uL Negative A 3947483227) RBC/HPF (test code = See_Comment [Autom ated message] 4053920551) The system Squla generated this result transmit ngozi reference range : 0 - 3 HPF. The refe rence range was not u sed to interpret th is result as normal/abnormal . WBC/HPF (test code = See_Comment [Autom ated message] 2999030504) The system Squla generated this result transmit ngozi reference range : 0 - 5 HPF. The refe rence range was not u sed to interpret th is result as normal/abnormal . BACTERIA (test code = Few Negative A 3975302854) MUCOUS (test code = Slight Negative LPF A 7585634749) SQ EPITH (test code = HPF 7978060985) Lab Interpretation (test Abnormal code = 40555-2) [facility] Aklleabaadc5522-44-19 16:42:24 Test Item Value Reference Range Interpretation [...] = 10-24-2020 N Expiration Dt) Thyroid Stimulating Ydkwtye9853-89-70 08:35:16 Test Item Value Reference Range Interpretation Comments TSH (test code = TSH) 1.170 mIU/mL 0.270-4.200 Lipid Khlnl5641-02-89 08:21:19 Test Item Value Reference Range Interpretation [...] calculation is LDL/HDL Ratio=L DL Calc/HDL Chol JEYGGUOSPBHI7404-97-63 08:24:008.6[facility] HroomuiEAINNBMOEQOD4180-62-96 08:24:13268Jqvlnxjm MaeitnwCINFGMPDARXV3191-36-33 08:24:0027[facility] HXBYDWTTZNND3454-34-83 08:24:55368Ilytggdb VgrkwqbNYEMUWERIRSU9716-53-79 08:24:003.6[facility] LljrabeCFRYLEZLFTJQ2147-79-93 08:24:000.70[facility] RDQDAIVDNZVY3404-17-83 08:24:008.4[facility] YemkeqlXXOVAIQEZLSU3749-53-22 08:24:94453Gjeytygn JqfraakGUTERMMEKRDI9040-51-41 08:24:0086[facility] KZDMQERXGRED1039-91-58 08:24:006[facility] QjkyoqkOCIUFMAHQT4317-28-82 08:24:00 11.6[facility] UhesjpuJKLPWYIKTY5501-73-88 08:24:003.78[facility]annHEMATOLOGY 2019-01-26 08:24:0013.3[facility] PqukaxgUPHGIPWLUQ2875-35-39 08:24:0034.0[facility] UupywwyARVJVUEBBK1265-80-26 08:24:006.3[facility] UhhuwxhLLDMEPUHMB1963-62-67 08:24:00 Test Item Value Reference Range Interpretation Comments MCH (test code = MCH) 30.7 pg 27.0-31.0 [facility] UrjdvumPXJVWKZLCX4943-93-18 08:24:0090.3[facility]annHEMATOLOGY 2019-01-26 08:24:0034.2[facility] ScyqmhjQSJSWIBMSJ4262-07-63 08:24:80063Pgtwkwsr EtymkffJDJMTZDQLA6546-56-83 08:24:007.5[facility] YfcszokXHCWEJMJHRQP5515-52-65 08:24:008.6[facility] NnispoyKNFYXTEGLHJM6194-17-28 08:24:70433Oweyatrx [facility] VNBEZOOYEIHI4013-32-81 08:24:0027[facility] ZhwbqjoVATUJZGHZQKR7387-97-97 08:24:00 139[facility] ZbnfmhtOWMEGYEKXDIM9713-36-19 08:24:003.6[facility] YYXPDYASTFTG3801-30-03 08:24:000.70[facility] MjtizudOWQBTDDZYPYV1239-16-13 08:24:008.4[facility] SxpdknhTRRTMJFLZBCS8778-00-03 08:24:93817Bcaemslf [facility] WALUCWYLHHAR5300-43-02 08:24:0086[facility] EynmvujVECTEKDCPFEY4709-11-55 08:24:00 6[facility] RffaeiyQKXNCTEEXN1074-65-08 08:24:0011.6[facility]annHEMATOLOGY 2019-01-26 08:24:003.78[facility] OifnlemNKCVEYPLCC9023-39-80 08:24:0013.3[facility] ZohcvnzOKEDGWYHFM6819-36-94 08:24:0034.0[facility] WhilbjzMMJMDKHTYE7709-11-21 08:24:006.3[facility] SnvubyhHVLAWAOTUS7745-81-07 08:24:00 Test Item Value Reference Range Interpretation Comments MCH (test code = MCH) 30.7 pg 27.0-31.0 [facility] ZiicqrvBCUIFATBEQ6649-83-55 08:24:0090.3[facility]annHEMATOLOGY 2019-01-26 08:24:0034.2[facility] WndaggcJYXGCGDNDD3787-45-82 08:24:41512Oawglxdy CmtmhpbKQCANSMTQL1294-08-25 08:24:007.5[facility] HermannCHEM LGBAP0133-24-37 09:14:52782Hbyvdpjk HermannCHEM FVVII0202-15-96 09:14:008.5[facility]annCHEM VWGCQ5708-79-58 09:14:0013.3[facility]annCHEM LLUJJ2250-46-41 09:14:0024 [facility]annCHE[facility] TNMTF4136-96-05 09:14:09531Xixnupkk HermannCHEM PANEL 2019-01-25 09:14:0081[facility]annCHEM KNGHN1405-09-47 09:14:002[facility]annCHEM FJUPE0342-38-01 09:14:003.3[facility]annCHEM IPZAP3720-12-98 09:14:000.60[facility]annCHEM AVDEM6609-46-91 09:14:45546Wizqwsan HermannCHEM KCEEO7497-05-45 09:14:12667Lbjidrpq [facility]annCHEM MPVML6054-15-95 09:14:008.5 [facility]annCHE[facility] XYNOQ7289-60-94 09:14:0013.3[facility]annCHEM PANEL 2019-01-25 09:14:0024[facility]annCHEM GXQZR2652-67-77 09:14:14037Jltsftwf [facility]annCHE[facility] EUIWG6997-59-56 09:14:0081[facility]annCHEM GAYIY6423-96-48 09:14:002[facility]annCHEM OTJWW2375-37-86 09:14:003.3[facility]annCHEM WSGRB4864-04-28 09:14:000.60[facility]annCHEM RRDRG6082-22-10 09:14:54698 [facility]annMOLECULAR EWMCJXIECZ3198-93-71 16:22:00Negative (01/23/19 11:22 AM)[facility]annMOLECULAR GYZVYXTRDL1796-31-02 16:22:00Negative (01/23/19 11:22 AM)[facility]annCHEM KQULD6953-40-95 15:42:002.76[facility]annCHEM PANEL 2019-01-23 15:42:002.76[facility]annCHEM MKPNW3908-73-42 12:32:000.9[facility]annCHEM ZRRNU0062-88-51 12:32:000.9[facility]annCHEM HKPAK9291-90-26 10:50:002.0[facility]annCHEM OLGHQ4344-69-82 10:50:80608Qmanttmg [facility]annCHEM BKWXE9370-08-86 10:50:0023[facility]annCHEM MOBEB7697-43-95 10:50:46967 [facility]annCHEM OATFJ0309-35-85 10:50:003.1[facility]annCHEM PANEL 2019-01-23 10:50:91352Upqexrma HermannCHEM KOQFH0430-83-64 10:50:005[facility]annCHEM DUPGJ2784-79-25 10:50:000.50[facility]annCHEM KKWNZ4866-39-76 10:50:007.8[facility]annCHEM HKZGC8562-13-38 10:50:0083[facility]annCHEM XJTOI3328-47-71 10:50:0010.1[facility] PtquwpfJRJKRVCNFX2375-46-92 10:50:000.2 [facility] LjxzizgMMMKLYACTX5547-46-84 10:50:000.8[facility] HermannHEMATOLOGY 2019-01-23 10:50:005.5[facility] WwdkgybMFLEIIMVPC0812-75-69 10:50:002.2[facility] IbzagsfOJUSFNNRBD8594-74-66 10:50:000.1[facility] FpcavosWJEOWQPVKF9292-24-43 10:50:0063.6[facility] GdxowpaVDJPBMUDKI9021-02-03 10:50:008.9[facility] YBLIPWZROM1371-03-70 10:50:002.3[facility] FuzmgonTMENZFDJUF0059-60-74 10:50:00 Normal (01/23/19 5:50 AM)[facility] SjgpoqgQTARPMDCBR3209-84-19 10:50:00Normal (01/23/19 5:50 AM)[facility] LkjicabJIKCFGEVNR5117-20-52 10:50:0025.1[facility] TdiyrahRQLHISMODC4062-64-32 10:50:0013.1[facility] PptqthoDEVMBLYHUX5518-32-44 10:50:05903Lfnowbze JfkuwexECDMNMEPYY7922-25-91 10:50:007.7[facility] GZIQYUFOEM0344-66-76 10:50:008.6[facility] IexizgyNNYPPSBVCZ9625-60-63 10:50:00 10.0[facility] TnijjhmTBGOVPXBQD6536-49-56 10:50:0034.6[facility] HermannHEMATOLOGY 2019-01-23 10:50:0028.7[facility] IafdcfsTAWRLMJWEX7423-35-31 10:50:0087.8[facility] QjeheccNIOXSTILND1949-06-18 10:50:00 Test Item Value Reference Range Interpretation Comments MCH (test code = MCH) 30.4 pg 27.0-31.0 [facility] YsbwzmoTRWOEQOXGM4337-25-47 10:50:003.27[facility] HermannHEMATOLOGY 2019-01-23 10:50:35165Xfsrhrsb ZkkgdexXGOAHAUGEC5439-96-48 10:50:007.7[facility] ArrwkxdDPHBCDHOUV1386-68-79 10:50:008.6[facility] VaogqnxGWYKJVOFQQ9069-33-31 10:50:0010.0[facility] XwqijcpWQZPAYJDLD5169-79-29 10:50:0034.6[facility] YLAMYUFEEC0948-91-43 10:50:0028.7[facility] RsopatzROQMQXMZOI5789-18-26 10:50:00 87.8[facility] InbqinhTCISYNSCPG0886-51-87 10:50:00 Test Item Value Reference Range Interpretation Comments MCH (test code = MCH) 30.4 pg 27.0-31.0 [facility] HpcjehhQXJERKBNHA3889-11-17 10:50:003.27[facility] HermannCHEM PANEL 2019-01-23 10:50:002.0[facility]annCHEM HLBGU4209-22-45 10:50:21544Zytrwirz HermannCHEM XEKPS3483-60-27 10:50:0023[facility]annCHEM AWWLQ2848-38-61 10:50:84735Hrollywm [facility]annCHEM NGYDV9840-29-85 10:50:003.1[facility]annCHEM LWFLE4720-52-31 10:50:69237Lwlvkhhu [facility]annCHEM MSPYA9989-01-10 10:50:005 [facility]annCHE[facility] XUXSW5183-66-85 10:50:000.50[facility]annCHEM PANEL 2019-01-23 10:50:007.8[facility]annCHEM YIFPA5654-44-89 10:50:0083[facility]annCHEM KBESY3205-13-42 10:50:0010.1[facility] YpkbwnhRUWMOGGRJM4704-79-41 10:50:000.2[facility] GhvkygjQSTIYKQFDE4608-42-90 10:50:000.8[facility] AZZTDADUAU5068-25-51 10:50:005.5[facility] YxxngufLOVAWXRMMH0937-33-00 10:50:002.2 [facility] TtiqnysQSSFRLYZGU9195-49-39 10:50:000.1[facility] HermannHEMATOLOGY 2019-01-23 10:50:0063.6[facility] BwdvjbcFBSAKWFGPE1401-04-00 10:50:008.9[facility] HslezclCBDGWNMJLK6026-48-79 10:50:002.3[facility] ApteouwWEMOOGZYHS1672-17-93 10:50:00Normal (01/23/19 5:50 AM)[facility] VlanibsUGDEPGYAAN6572-40-72 10:50:00 Normal (01/23/19 5:50 AM)[facility] OfdlugaLJWDUQDEVW7298-69-03 10:50:0025.1[facility] McjwiabYUGCKOUQWL5257-20-70 10:50:0013.1[facility] HermannCHEM TEKAW3819-94-41 11:32:002.4[facility]annCHEM FHLTS3490-31-35 11:32:002.4[facility]annCHEM VNXKP1660-37-70 09:04:003.0[facility]annCHEM AYQSE2384-10-64 09:04:003.0 [facility]UR[facility] UWARM0648-14-97 07:14:00 Test Item Value Reference Range Interpretation Comments UA Spec Grav (test code = UA Spec 1.014 1 Grav) [facility] HJQAS3073-43-33 07:14:00 Test Item Value Reference Range Interpretation Comments UA pH (test code = UA pH) 6.0 1 5.0-8.0 [facility] GURCQ2870-75-80 07:14:00Negative (01/22/19 2:14 AM) [facility] JKRJW9575-72-56 07:14:00Negative *NA*(01/22/19 2:14 AM) [facility] HZQRY4667-53-73 07:14:00Negative *NA*(01/22/19 2:14 AM) [facility] XUDNP8480-33-26 07:14:00Negative *NA*(01/22/19 2:14 AM) [facility] PIGJX1174-55-47 07:14:00Negative (01/22/19 2:14 AM) [facility] CZYCI7115-52-00 07:14:00Negative (01/22/19 2:14 AM) [facility] JREES4554-35-46 07:14:00Negative (01/22/19 2:14 AM) [facility] ZLIDK9807-17-70 07:14:00<1[facility] BJVIF5187-90-93 07:14:0025[facility] NVXVM6745-39-66 07:14:002 [facility] LIFAC2664-98-23 07:14:00Light Yellow *NA*(01/22/19 2:14 AM)[facility] WSNNX0649-45-77 07:14:00Clear (01/22/19 2:14 AM) [facility] RLERK2193-38-15 07:14:00 Test Item Value Reference Range Interpretation Comments UA Spec Grav (test code = UA Spec 1.014 1 Grav) [facility] UNRSL3874-43-19 07:14:00 Test Item Value Reference Range Interpretation Comments UA pH (test code = UA pH) 6.0 1 5.0-8.0 [facility] JNKXZ2416-89-17 07:14:00Negative (01/22/19 2:14 AM) [facility] DUTSK6457-96-32 07:14:00Negative *NA*(01/22/19 2:14 AM) [facility] PDZAF5094-88-03 07:14:00Negative *NA*(01/22/19 2:14 AM) [facility] COIKO5248-71-32 07:14:00Negative *NA*(01/22/19 2:14 AM) [facility] MOMQO1293-60-91 07:14:00Negative (01/22/19 2:14 AM) [facility] WTCOD7071-28-06 07:14:00Negative (01/22/19 2:14 AM) [facility] DXFNL9900-93-35 07:14:00Negative (01/22/19 2:14 AM) [facility] YSWPB2671-28-71 07:14:00<1[facility] TNHPA6227-28-10 07:14:0025[facility] MLDRN5851-65-86 07:14:002 [facility] NFZQH2060-58-89 07:14:00Light Yellow *NA*(01/22/19 2:14 AM)[facility] VOJWE8432-10-60 07:14:00Clear (01/22/19 2:14 AM) [facility] DdsxrssJDPAZ4564-69-90 05:16:000.90[facility] XjlqzwzIIGKE7115-72-46 05:16:000.90[facility] OjqbyyuYFTZSDYIUU7543-50-37 05:01:009.9[facility] CEBGJZMSZZ6767-92-75 05:01:0032.8[facility] AnxtzlfCCEZKTFLOG1620-53-96 05:01:00 13.6[facility] NoipwufEWPZEVDXDZ7887-18-95 05:01:52790Cnuqypip HermannHEMATOLOGY 2019-01-22 05:01:007.3[facility] UvvckrnVHZOTSKJRS5072-48-22 05:01:0014.0[facility] DwwezgxQERPPQHRHJ1191-80-30 05:01:004.85[facility] JsvsavbUTBNTYTQNP0410-97-78 05:01:0042.7[facility] UbsjuaoFCAHCDZYNV7917-36-54 05:01:00 Test Item Value Reference Range Interpretation Comments MCH (test code = MCH) 29.0 pg 27.0-31.0 [facility] VdnfqlxMQAAAOAEVR2832-95-88 05:01:0088.2[facility]annHEMATOLOGY 2019-01-22 05:01:00 Test Item Value Reference Range Interpretation Comments INR (test code = INR) 0.96 1 0.85-1.17 [facility] UkedxvxKMBTUGMYSL1019-79-29 05:01:00 Test Item Value Reference Range Interpretation Comments PT (test code = PT) 12.6 s 12.0-14.7 [facility] ZawjfgwNQTLEPPHEI8170-59-43 05:01:00 Test Item Value Reference Range Interpretation Comments PTT (test code = PTT) 25.9 s 22.9-35.8 [facility] HermannBLOOD BANK CBHHYMF7525-48-85 05:01:00Negative (01/22/19 12:01 AM) [facility] HermannCARDIAC SKGIBYA6590-31-56 05:01:00<0.02[facility] CARDIAC MXSQYWY7706-51-13 05:01:0049[facility] HermannCHEM BUGMO1924-99-43 05:01:000.6[facility] HermannCHEM BTEMZ0952-78-41 05:01:72356Vmmrwoab HermannCHEM EIZOQ2604-62-54 05:01:004.0[facility] HermannCHEM JQBJI2994-83-73 05:01:0017 [facility]annCHEM RKWNS6001-76-16 05:01:0025[facility] HermannCHEM PANEL 2019-01-22 05:01:008.1[facility] HermannCHEM JCPVN8045-61-86 05:01:00 Test Item Value Reference Range Interpretation Comments B/C Ratio (test code = B/C Ratio) 20 1 6-25 [facility]annCHE[facility] CBRXX3442-12-73 05:01:00 Test Item Value Reference Range Interpretation Comments A/G Ratio (test code = A/G Ratio) 1.0 1 0.7-1.6 [facility]annCHEM CTXVU6160-03-09 05:01:004.1[facility]annCHEM PANEL 2019-01-22 05:01:006.90[facility] LiolvgxLEJEAMOQKCFPX5947-70-87 05:01:00Negative *NA*(01/22/19 12:01 AM)[facility] CkuudqeTMBRVIVECV4944-00-46 05:01:000.1[facility] FgmpcmkADOSGUHXVA8987-31-68 05:01:000.7[facility] NqqalhkZOTLOAFCKH7169-58-16 05:01:000.0[facility] DxxbeitUSUKZAXYED0194-47-40 05:01:000.0[facility] XWHPFJDUEE6671-13-86 05:01:000.9[facility] QdfuquqWROMIFWPGX3542-49-96 05:01:008.6 [facility] HpzvyjiKYYBMSIINR0610-00-01 05:01:000.6[facility]annHEMATOLOGY 2019-01-22 05:01:0086.5[facility] JrxqdkjORXNPMVYYU9269-20-72 05:01:005.7[facility] ToaimfdAEARGEZKVP1038-39-57 05:01:006.9[facility] RshjdlhYRKHWZMOGX9552-30-03 05:01:009.9[facility] LnwswvwAQIULICVOS7129-01-73 05:01:0032.8[facility] KTEIATKWTE5863-76-30 05:01:0013.6[facility] IjswzadJNPCCFKQRU6530-98-63 05:01:00 443[facility] GruxiylSPFMVZRNZB4419-94-00 05:01:007.3[facility]annHEMATOLOGY 2019-01-22 05:01:0014.0[facility] XtrtmchQZZBEWADLJ9348-53-57 05:01:004.85[facility] FgqwgltTKPZJTWHJB7667-66-21 05:01:0042.7[facility] TziiqwtULYAKPLSPP7397-47-70 05:01:00 Test Item Value Reference Range Interpretation Comments MCH (test code = MCH) 29.0 pg 27.0-31.0 [facility] VhdybsoDQJSDJSZQC5610-31-77 05:01:0088.2[facility]annHEMATOLOGY 2019-01-22 05:01:00 Test Item Value Reference Range Interpretation Comments INR (test code = INR) 0.96 1 0.85-1.17 [facility] SnlwczzHTZRQPCBAU0237-79-31 05:01:00 Test Item Value Reference Range Interpretation Comments PT (test code = PT) 12.6 s 12.0-14.7 [facility] KqmfdyuIADBZHHBBB8041-10-43 05:01:00 Test Item Value Reference Range Interpretation Comments PTT (test code = PTT) 25.9 s 22.9-35.8 [facility] GYTFAQD1199-72-88 05:01:00Negative (01/22/19 12:01 AM) [facility] HermannCARDIAC ZACFSHB2861-63-44 05:01:00<0.02[facility] CARDIAC JBYOVAQ8952-97-49 05:01:0049[facility] HermannCHEM XZKAS2024-01-46 05:01:000.6[facility] HermannCHEM FHUCH7427-45-89 05:01:21255Cafcbauv HermannCHEM MCIRE6642-71-50 05:01:004.0[facility] HermannCHEM XVZEY9010-66-68 05:01:0017 [facility]annCHEM UUIOS8036-23-49 05:01:0025[facility] HermannCHEM PANEL 2019-01-22 05:01:008.1[facility] HermannCHEM APWSB7974-36-03 05:01:00 Test Item Value Reference Range Interpretation Comments B/C Ratio (test code = B/C Ratio) 20 1 6-25 [facility] HermannCHEM YIVWS8325-35-22 05:01:00 Test Item Value Reference Range Interpretation Comments A/G Ratio (test code = A/G Ratio) 1.0 1 0.7-1.6 [facility]annCHEM RWXBR6494-57-02 05:01:004.1[facility] HermannCHEM PANEL 2019-01-22 05:01:006.90[facility] RfkttidOQJFOCFTGTYKE8345-06-09 05:01:00Negative *NA*(01/22/19 12:01 AM)[facility] RmjrrcjSDNCUVWYZN0151-86-38 05:01:000.1[facility] CfgymfrEQTJMRKWUD3820-90-70 05:01:000.7[facility] AgohsyxBNDHYFPXVC0337-34-31 05:01:000.0[facility] IpmyulaCJAHULTWFJ2715-82-36 05:01:000.0[facility] KWQUATSSET3681-95-55 05:01:000.9[facility] UnyaxwmZEPTNSGQJA3608-67-71 05:01:008.6 [facility] NvskjcpMZSYLQVVMF7599-72-85 05:01:000.6[facility] HermannHEMATOLOGY 2019-01-22 05:01:0086.5[facility] YeppoqhGUTONWELRU5887-68-45 05:01:005.7[facility] PcgucbtIFDVWLJJQG7600-81-53 05:01:006.9[facility] KlrwmkbEDB0W9985-20-93 14:36:00 Test Item Value Reference Range Interpretation [...] 0.00-0.01 N code = ETOHU) Comprehensive Metabolic [id number] 14:36:00 Test Item Value Reference Range Interpretation [...] the [employer],http ://nkd ep.nih.gov Urinalysis [id number] 14:32:00 Test Item Value Reference Range Interpretation Comments Color (test code = COLOR) Yellow Yellow,Straw,Pl N yellow Clarity (test code = Clear Clear N CLAR) Specific [place] (test 1.024 1.001-1.035 N code = SPGR) [...] code = Few /HPF BACT) CBC with [id number] 14:21:00 Test Item Value Reference Range Interpretation [...] code = ALYMPH) 3.0 K/cumm 0.5-4.6 N [place] Abs (test code = AMONO) 0.5 K/cumm 0.0-1.2 N Eos Abs (test code = AEOS) 0.19 K/cumm 0.00-0.74 N Baso Abs (test code = ABASO) 0.1 K/cumm 0.00-0.21 N
--- NOTE | 2021-10-12 18:25 | ER ---
Nurse's Notes [facility] Name: Tiffany Quinn Age: 51 yrs Sex: Female : 1970 Arrival Date: 10/12/2021 Time: 18:12 Bed Waiting Private MD: Diagnosis: Headache Presentation: 10/12 18:15 Chief complaint: Patient states: "I have had a headache and I took an Ultram last ss night, and I just wanted to see if I could take another one tonight.". Coronavirus screen: Client denies travel out of the [place] in the last 14 days. Ebola Screen: Patient denies exposure to infectious person. Patient denies travel to an Ebola-affected area in the 21 days before illness onset. Initial Sepsis Screen: Does the patient meet any 2 criteria? No. Patient's initial sepsis screen is negative. Does the patient have a suspected source of infection? No. Patient's initial sepsis screen is negative. Risk Assessment: Do you want to hurt yourself or someone else? Patient reports no desire to harm self or others. Onset of symptoms is unknown. 18:15 Method Of Arrival: Ambulatory ss 18:15 Acuity: MANUEL 5 ss Historical: - Allergies: 18:16 Pepcid; ss 18:16 Toradol; ss - PMHx: 18:16 ADD; Anxiety; Bipolar disorder; ss - PSHx: 18:16 Cholecystectomy; hernia repair; ss - Immunization history:: Client reports receiving the 2nd dose of the Covid vaccine. - Social history:: Smoking status: Patient denies any tobacco usage or history of. Screenin:16 Abuse screen: Denies threats or abuse. Denies injuries from another. Nutritional ss screening: No deficits noted. Tuberculosis screening: Never had TB. Fall Risk None identified. Assessment: 18:16 General: Appears in no apparent distress. comfortable, Behavior is calm, cooperative. ss Pain: Complains of pain in top of head and forehead Pain currently is 9 out of 10 on a pain scale. Quality of pain is described as aching. Neuro: Level of Consciousness is awake, alert, obeys commands, Oriented to person, place, time, situation. Cardiovascular: Capillary refill < 3 seconds is brisk in bilateral fingers. Respiratory: Airway is patent Respiratory effort is even, unlabored, Respiratory pattern is regular, symmetrical. GI: Patient currently denies diarrhea, nausea, vomiting. EENT: Nares are clear. Derm: Skin is intact, is healthy with good turgor, Skin is dry, Skin is pink, warm \\T\\ dry. normal. 18:31 Reassessment: Patient appears in no apparent distress at this time. Patient and/or ss family updated on plan of care and expected duration. Pain level reassessed. Patient is alert, oriented x 3, equal unlabored respirations, skin warm/dry/pink. Vital Signs: 18:15 BP 141 / 82; Pulse 78; Resp 16; Temp 98.1(TE); Pulse Ox 100% on R/A; Weight 71.67 kg; ss Pain 9/10; ED Course: 18:12 Patient arrived in ED. ds1 18:16 Triage completed. ss 18:16 Arm band placed on right wrist. ss 18:16 Patient has correct armband on for positive identification. ss 18:23 Venkatesh Funez NP is PHCP. pm1 18:23 Manuel Ward MD is Attending Physician. pm1 18:25 Dayna Dominguez DO is Referral Physician. pm1 18:31 Preethi Melendez RN is Primary Nurse. ss 18:31 No provider procedures requiring assistance completed. Patient did not have IV access ss during this emergency room visit. Administered Medications: No medications were administered Outcome: 18:25 Discharge ordered by . pm1 18:31 Discharged to home ambulatory. ss 18:31 Condition: good 18:31 Discharge instructions given to patient, Instructed on discharge instructions, follow up and referral plans. Demonstrated understanding of instructions, follow-up care. 18:32 Patient left the ED. ss Signatures: Neelima Rivera ds1 Preethi Melendez RN RN Venkatesh Funez NP [employer] pm1
--- NOTE | 2021-10-12 18:26 | EDPHYS ---
Physician Documentation [facility] Name: Tiffany Quinn Age: 51 yrs Sex: Female : 1970 Arrival Date: 10/12/2021 Time: 18:12 Bed Waiting Private MD: ED Physician Manuel Ward HPI: 10/12 18:23 This 51 yrs old Female presents to ER via Ambulatory with complaints of Headache. pm1 18:23 The patient complains of pain to the top of head. Onset: The symptoms/episode pm1 began/occurred 4 day(s) ago. Associated signs and symptoms: Pertinent positives: nausea, Pertinent negatives: fever, neck stiffness, Photophobia vision changes. Severity of symptoms: in the emergency department the pain has improved, Improves with the ultram that was prescribed she took one this morning is presenting to the ER today because she would like to know if she can take another tramadol today. Headache History: The patient has had previous headaches and this one is similar to previous episodes. The symptoms are alleviated by ultram. The patient has experienced similar episodes in the past, today's symptoms are similar, to previous headaches. The patient has been recently seen at the [facility] Emergency Department, yesterday, for similar complaints. Historical: - Allergies: 18:16 Pepcid; ss 18:16 Toradol; ss - PMHx: 18:16 ADD; Anxiety; Bipolar disorder; ss - PSHx: 18:16 Cholecystectomy; hernia repair; ss - Immunization history:: Client reports receiving the 2nd dose of the Covid vaccine. - Social history:: Smoking status: Patient denies any tobacco usage or history of. ROS: 18:23 Constitutional: Negative for fever, chills, and weight loss, Cardiovascular: Negative pm1 for chest pain, palpitations, and edema, Respiratory: Negative for shortness of breath, cough, wheezing, and pleuritic chest pain, Abdomen/GI: Negative for abdominal pain, nausea, vomiting, diarrhea, and constipation, MS/Extremity: Negative for injury and deformity, Skin: Negative for injury, rash, and discoloration. 18:23 Neuro: Positive for headache, Negative for dizziness, numbness, tingling. 18:23 All other systems are negative. Exam: 18:23 Constitutional: This is a well developed, well nourished patient who is awake, alert, pm1 and in no acute distress. Head/Face: Normocephalic, atraumatic. 18:23 Back: No spinal tenderness. No costovertebral tenderness. Full range of motion. Skin: Warm, dry with normal turgor. Normal color with no rashes, no lesions, and no evidence of cellulitis. MS/ Extremity: Pulses equal, no cyanosis. Neurovascular intact. Full, normal range of motion. 18:23 Eyes: Exam is negative for acute changes, Extraocular movements: no acute changes, Conjunctiva: no acute changes, no injection, Sclera: no acute changes, icterus, is not appreciated. 18:23 ENT: Exam is negative for acute changes, Mouth: Lips: normal, moist, Oral mucosa: normal, pink and intact, moist. 18:23 Cardiovascular: Exam negative for acute changes, Rate: normal, Rhythm: regular, Pulses: no pulse deficits are appreciated. 18:23 Respiratory: Exam negative for acute changes, respiratory distress, shortness of breath. 18:23 Abdomen/GI: Exam negative for acute changes, Inspection: abdomen appears normal, Palpation: abdomen is soft and non-tender, in all quadrants. 18:23 Neuro: Exam negative for acute changes, Orientation: is normal, Mentation: is normal, Motor: is normal, moves all fours. Vital Signs: 18:15 BP 141 / 82; Pulse 78; Resp 16; Temp 98.1(TE); Pulse Ox 100% on R/A; Weight 71.67 kg; ss Pain 9/10; MDM: 18:23 Data reviewed: vital signs. Data interpreted: Pulse oximetry: on room air is 100 %. pm1 Interpretation: normal. Counseling: I had a detailed discussion with the patient and/or guardian regarding: the historical points, exam findings, and any diagnostic results supporting the discharge/admit diagnosis, the need for outpatient follow up, to return to the emergency department if symptoms worsen or persist or if there are any questions or concerns that arise at home. 18:25 Patient medically screened. pm1 Administered Medications: No medications were administered Disposition Summary: 10/12/21 18:25 Discharge Ordered Location: Home pm1 Problem: new pm1 Symptoms: have improved pm1 Condition: Stable pm1 Diagnosis - Headache pm1 Followup: pm1 - With: Emergency Department - When: As needed - Reason: Worsening of condition Followup: pm1 - With: Alberto CharlineManBariDO - When: 2 - 3 days - Reason: Recheck today's complaints, Continuance of care, Re-evaluation by your physician Discharge Instructions: - Discharge Summary Sheet pm1 - General Headache Without Cause pm1 Forms: - Medication Reconciliation Form pm1 - Thank You Letter pm1 - Antibiotic Education pm1 - Prescription Opioid Use pm1 Prescriptions: - ondansetron 4 mg Oral tablet,disintegrating - place 1 tablet by TRANSLINGUAL route every 8 hours As needed; 12 tablet; pm1 Refills: 0, Product Selection Permitted Addendum: 10/15/2021 19:00 Co-signature as Attending Physician, Manuel Ward MD I agree with the assessment and r n plan of care. Attestation: The patient's history, exam findings, diagnostics, and a summary of any interventions or procedures was reviewed in detail with Venkatesh Funez NP. Signatures: Manuel Ward MD MD rn Smirch, Shelby, RN RN ss Marinas, Patrick, NP [employer] pm1
[2021-10-12 18:39] VITALS: BP 141/82; TEMP 98.1; O2SAT 100
== END 2021-10-12 18:32 | disposition home or self-care (01) ==
LOC: ER 18:10
DX: R51.9 Headache, unspecified (principal); Z88.5 Allergy status to narcotic agent; Z88.8 Allergy status to other drugs, medicaments and biological substances
CPT/HCPCS: 99281

== ENCOUNTER 2021-10-13 07:06 | Emergency (ER) | payer OTHER ==
--- OUTSIDE RECORDS SUMMARY | 2021-10-13 07:13 | XMS REPORT | Continuity of Care Document ---
:1970 Author Organization [facility] t Address [address] [place] [address] Care Team Providers Name Role Phone UNKNOWN Primary Care Physician Unavailable SANCHEZ Attending Clinician Unavailable Sanchez SNOW Attending Clinician Julia HOFFMANN, S Attending Clinician Doctor Unassigned, Name Attending Clinician Unavailable Singer ESCALANTE Attending Clinician Attending Clinician Unavailable Humaira-Mbayo_A_AH Attending Clinician Unavailable Chente Attending Clinician Unavailable Chente Attending Clinician Unavailable AFUWAPE Attending Clinician Unavailable SANCHEZ Admitting Clinician Unavailable Humaira-Mbayo_A_AH Admitting Clinician Unavailable Chente Admitting Clinician Unavailable ALEXYSUWKYRA Admitting Clinician Unavailable Payers Payer Name Policy Type Policy Number Effective Date Expiration Date S nasim [place] [id number] 2019 PLUS CLASSIC/VALUE 00:00:00 MEDICAID [facility] [id number] 2015 00:00:00 WELLCARE OF [facility] [id number] 2020 [place] 00:00:00 (MEDICARE REPLACEMENT/ADVANT AGE - HMO) Problems Condition Condition Condition Status Onset Resolution Last Treating Co mments Source Name Details Category Date Date Treatment Clinician Date LOW PB Diagnosis Active 2019-01-22 Mem oria 3 01:52:00 l LOW PB 00:00: [place] 00 Active 01/21/2019 [facility] INFECTIOUS Diagnosis Active 2019-02-06 Memoria GASTROENTE 330 08:58:00 l RITIS AND 00:00: Yonis COLITIS INFECTIOUS 00 GASTROENTE RITIS AND COLITIS Active 01/21/2019 [facility] Irregular Irregular Disease Active Uni vers menstrual menstrual 8-15 ity of cycle cycle 00:00: [address] Skin Skin Disease Active Univers lesion lesion 8-15 ity of 00:00: [address] Psychiatri Psychiatri Disease Active U nivers c disorder c disorder 8-15 it y of 00:00: [address] Well woman Well woman Disease Active [...] Univers ALLERGIE Class ity of S [facility] Phenerga Phenerga Active [place] a n n winifred [place] Social History Social Habit Start Date Stop Date Quantity Comments Source History of Cigarette Smoker Universi ty of tobacco use [facility] Tobacco Comment 2-3 cigs a day [facility] Exposure to Not sure [place] of SARS-CoV-2 [facility] (event) [place] Tobacco use and 2016-06-08 2016-06-08 [facility]00 00:00:00 [facility] Alcohol intake 2016-06-08 2016-06-08 0 /d University of 00:00:00 00:00:00 [facility] Sex Assigned At [birth year] Universit y of 00:00:00 00:00:00 [facility] Smoking Status Start Date Stop Date Source Social History 2019-01-22 05:00:12 Jeanne urena Current some day smoker 2016-06-08 00:00:00 [facility] Medications Ordered Filled Start Stop [...] ity of (PF)) 06:45: 05:54 ONCE, 1 [place] injection 4 00 :00 dose, On Medi nicky mg Wed09/10/21 at 0045, RANDA NaCl 0.9% 2020-10- No 1000mL at 999 Uni vers (NS) bolus 11-10 mL/hr, ity of infusion 05:30: 05:30 1,000 mL, Joe as 1,000 mL 00 :00 IV Medical Infusion, Branch ONCE, 1 dose, On Wed09/09/21 at 2330, RANDA amoxicillin 2020-10 Yes [id number] 500mg Take 1 Univers 500 mg 11-10 capsule by ity of capsule 00:00: mouth 3 [place] 00 (three) Medical times Branch daily. ondansetron 2019-10- No 4mg 4 mg, [facility] ers (ZOFRAN-ODT 12-01- Oral, ity of [...] 4 mg 0830, Routine ondansetron 2019-10 Yes [id number] 4mg Take 1 Univers 4 mg 2-07 tablet by ity of disintegrat 00:00: mouth [place] ing tablet 00 every 8 Medica l (eight) Branch hours as needed for Nausea and Vomiting (N/V). ondansetron 2019-10 Yes [id number] 4mg Take 1 Univers 4 mg 2-07 tablet by ity of disintegrat 00:00: mouth [place] ing tablet 00 every 8 Medica l (eight) Branch hours as needed for Nausea and Vomiting (N/V). ondansetron 2019-10 Yes [id number] 4mg Take 1 Univers 4 mg 2-07 tablet by ity of disintegrat 00:00: mouth [place] ing tablet 00 every 8 Medica l (eight) Branch hours as needed for Nausea and Vomiting (N/V). ondansetron 2019-10 Yes [id number] 4mg Take 1 Univers 4 mg 2-07 tablet by ity of disintegrat 00:00: mouth [place] ing tablet 00 every 8 Medica l (eight) Branch hours as needed for Nausea and Vomiting (N/V). ciprofloxac 2018- Yes 500 mg = 1 Memoria in 500 mg 4-04 tab, PO, l oral tablet 17:35: [id number], X Yonis 00 4 day, # 8 tab, 0 Refill(s) Ondansetron Yes 4 mg = 1 Me moria 4 MG Oral 4-04 tab, PO, l Tablet 17:35: Q6H, PRN Arbela [Zofran] 00 Nausea/Vom iting, # 20 tab, [...] 4-04 tab, PO, l oral tablet 17:35: [id number], X Yonis 00 4 day, # 8 tab, 0 Refill(s) Ondansetron 2019-0 Yes 4 mg = 1 Me moria 4 MG Oral 4-04 tab, PO, l Tablet 17:35: Q6H, PRN [place] [Zofran] 00 Nausea/Vom iting, # 20 tab, [...] 4-03 (Same as: l 13:26: K-Dur 20) [place]ela 00 "Do Not Crush" Give with food [...] ia 4-01 (Same As: l 18:00: KlonoPIN) [place] 00 Clonazepam No Notes: Memor ia 4- (Same As: l 18:00: KlonoPIN) [place] Flagyl No Notes: Memoria 4- (Same as: l 15:00: Flagyl) Yonis 00 Take with food/ avoid alcohol Cipro No Notes: May Memori a 4- interfere l 15:00: w/enteral [place] 00 feedings - Take 1 hr before or 2 hrs after antacids, dairy pdt & minerals. On empty stomach. Flagyl No Notes: Memoria 4- (Same as: l 15:00: Flagyl) Arbela 00 Take with food/ avoid alcohol Cipro [...] PO, ONCE, l mEq oral 14:20: 0 [place] tablet, 00 Refill(s) extended release Metronidazo No 500 mg, Mem oria le 500 MG 4-01 PO, l Oral Tablet 14:20: [id number], 0 H ermann [Flagyl] 00 Refill(s) Ciprofloxac No 500 mg, Mem oria in 500 MG 4-01 PO, l Oral Tablet 14:20: [id number], 0 Yonis [Cipro] 00 Refill(s) potassium Yes [...] MG 4-01 PO, l Oral Tablet 14:20: [id number], 0 [place] [Cipro] 00 Refill(s) Potassium No Notes: Memori [...] -01 (Same as: l 14:17: K-Dur 20) [place] 00 "Do Not Crush" Give with food [...] Memoria 3-31 (Same as: l 22:00: Pepcid) [place] 00 Strattera Yes 0.5 mg/kg, Me moria [...] tab, PO, l Tablet 21:08: BID, 0 [place] [Risperdal] 00 Refill(s) Strattera Yes 0.5 mg/kg, [...] tab, PO, l Tablet 21:08: BID, 0 [place] [Risperdal] 00 Refill(s) Zosyn No Notes: Memoria [...] Syringe -31 25 mL, l 09:47: Route: [place] 00 IVP, Drug Form: INJ, Dosing Weight 75.994, kg, PRN, PRN Blood Glucose Results, Start date: 01/22/19 4:47:00 CDT, Duration: 30 day, Stop date: 02/21/19 4:46:00 CDT Ondansetron 2018-0 No Notes: Estrada doni 3-31 (Same as: l 09:47: Kurtis) Yonis MEDICATION WASTE Product Size: 4 mg Product Wasted: ___ mg Glucagon 2019-0 No 1 mg, Memoria 3-31 Route: IM, l 09:47: Drug form: [place] 00 PDR/INJ, PRN, Dosing Weight 75.994, kg, [...] Memoria 3-31 (Same as: l 06:10: Zosyn) [place] 00 Dosing based on Piperacill in component MEDICATION WASTE Product Size: 3375 mg Product Wasted: ___ mg Zosyn No Notes: Memoria 3-31 (Same as: l 06:10: Zosyn) Yonis 00 Dosing based on Piperacill in component MEDICATION WASTE Product Size: 3375 mg Product Wasted: ___ mg NS (Bolus) No 1,000 mL, Me moria IV 3-31 1,000 l 05:44: ml/hr, [place]ela 00 Infuse Over: 1 hr, Route: IV, [...] (KLONOPIN 8-15 mouth. ity of ORAL) 19:02: [place] [address] Medical Branch CITALOPRAM 2016-0 Yes Take by Uni vers HYDROBROMID 8-15 mouth. ity of E 19:02: [place] (CITALOPRAM 27 Medical ORAL) Branch ibuprofen 2016-0 Yes 200mg Take 200 Uni vers (ADVIL) 200 8-15 mg by ity of mg tablet 14:02: mouth [place] [address] every 6 Medical (six) Branch hours as needed. CLONAZEPAM 2016-0 Yes Take by Uni vers (KLONOPIN 8-15 mouth. ity of ORAL) 14:02: [place] [address] Medical Branch CITALOPRAM 2016-0 Yes Take by Uni vers HYDROBROMID 8-15 mouth. ity of E 14:02: [place] (CITALOPRAM 27 Medical ORAL) Branch ibuprofen 0 Yes 200mg Take 200 Uni vers (ADVIL) 200 8-15 mg by ity of mg tablet 14:02: mouth [place] [address] every 6 Medical (six) Branch hours as needed. CLONAZEPAM 2016-0 Yes Take by Uni vers (KLONOPIN 8-15 mouth. ity of ORAL) 14:02: [address] Branch CITALOPRAM 2016-0 Yes Take by Uni vers HYDROBROMID 8-15 mouth. ity of E 14:02: [place] (CITALOPRAM 27 Medical ORAL) Branch ibuprofen 2015-0 Yes 200mg Take 200 Uni vers (ADVIL) 200 8-15 mg by ity of mg tablet 14:02: mouth [place] [address] every 6 Medical (six) Branch hours as needed. CLONAZEPAM 2016-0 Yes Take by Uni vers (KLONOPIN 8-15 mouth. ity of ORAL) 14:02: [address] Branch CITALOPRAM 2016-0 Yes Take by Uni vers HYDROBROMID 8-15 mouth. ity of E 14:02: [place] (CITALOPRAM 27 Medical ORAL) Branch misoprostol 2015-0 [...] 2021-09-10 08:01:00 138 mm[Hg] Univer sity of [facility] Diastolic blood 2021-09-10 08:01:00 97 [facility]Hg] [facility] 2021-09-10 08:01:00 87 /min [facility] Respiratory rate 2021-09-10 08:01:00 20 /min [facility] Oxygen saturation in 2021-09-10 08:01:00 98 /min [facility] Arterial blood by [facility] [place] [facility] Pulse oximetry [place] Body temperature 2021-09-10 04:28:51 37.17 Ruthann [facility] Body height 2021-09-10 04:26:00 154.9 cm [facility] Body weight 2021-09-10 04:26:00 81.647 kg [facility] BMI 2021-09-10 04:26:00 34.01 kg/m2 [facility] Systolic blood 2021-09-09 20:06:00 150 mm[Hg] Univer sity of [facility] Diastolic blood 2021-09-09 20:06:00 89 mm[Hg] [facility] Heart rate 2021-09-09 20:06:00 108 /min [facility] Body temperature 2021-09-09 20:06:00 37.22 Ruthann [facility] Respiratory rate 2021-09-09 20:06:00 18 /min [facility] Oxygen saturation in 2021-09-09 20:06:00 99 /min University of Arterial blood by [facility] [place] [facility] Pulse oximetry Branch Body weight 2021-09-09 20:05:00 [...] 98 /min University of Arterial blood by [facility] [place] [facility] Pulse oximetry Branch Body temperature 2020-09-30 13:26:00 [...] 98 /min University of Arterial blood by [facility] [place] [facility] Pulse oximetry Branch Body temperature 2020-09-30 13:26:00 37.22 Ruthann Univ [facility] [place] [facility] Respiratory rate 2020-09-30 13:26:00 16 /min Univ [facility] [place] [facility] Body weight 2020-09-30 13:26:00 72.576 kg [facility] [place] [facility] BMI 2020-09-30 13:26:00 28.80 kg/m2 [facility] [place] [facility] Temperature Oral (F) 2019-01-28 01:16:00 98.6 F [facility] Systolic (mm Hg) 2019-01-28 01:16:00 Estrada rial Yonis Diastolic (mm Hg) 2019-01-28 01:16:00 Mem orial Yonis Heart Rate 2019-01-28 01:16:00 [facility] [place] Respitory Rate 2019-01-28 01:16:00 Memori al Yonis Systolic (mm Hg) 2019-01-27 20:42:00 Estrada rial Yonis Diastolic (mm Hg) 2019-01-27 20:42:00 Mem orial Yonis Heart Rate 2019-01-27 20:42:00 [facility] [place] Respitory Rate 2019-01-27 20:42:00 Memori al Yonis Temperature Oral (F) 2019-01-27 20:42:00 98.5 F [facility] [place] Systolic (mm Hg) 2019-01-27 17:00:00 Estrada rial Yonis Diastolic (mm Hg) 2019-01-27 17:00:00 Mem orial [place] Temperature Oral (F) 2019-01-27 17:00:00 98.5 F Memorial Yonis Heart Rate 2019-01-27 17:00:00 [facility] [place] Respitory Rate 2019-01-27 [facility] Height 2019-01-22 14:35:00 157.48 cm [facility] BMI Calculated 2019-01-22 14:35:00 Memori al [place] Weight 2019-01-22 14:35:00 [facility] [place] Weight 2019-01-22 04:34:00 [facility] Procedures Procedure Date / Time Performing Clinician Source Performed URINALYSIS 2021-09-10 06:03:00 Neena Rogers [facility] URINE DRUG (IMMUNOASSAY) 2021-09-10 06:03:00 Neena Rogers [facility] SCREEN W/O REFLEX XR CHEST 1 VW 2021-09-10 04:57:30 Neena Rogers [facility] CREATINE KINASE 2021-09-10 04:39:00 Neena Rogers [facility] MAGNESIUM 2021-09-10 04:39:00 Neena Rogers [facility] TROPONIN I 2021-09-10 04:39:00 Neena Rogers [facility] COMP. METABOLIC PANEL 2021-09-10 04:39:00 Neena Rogers [facility] ([id number]) Medical Branch CBC WITH DIFF 2021-09-10 04:39:00 Neena Rogers [facility] PROTHROMBIN TIME / INR 2021-09-10 04:39:00 Neena Rogers [facility] ACTIVATED PARTIAL 2021-09-10 04:39:00 [facility] N-TERMINAL PRO-BNP 2021-09-10 04:39:00 Neena Rogers [facility] COVID-19 (ID NOW RAPID 2021-09-10 04:39:00 Neena Rogers [facility] TESTING) Medical Branch TROPONIN I 2021-09-09 21:49:00 [place] [facility] COMP. METABOLIC PANEL 2021-09-09 21:49:00 Luanne Dumont [facility] ([id number]) Medical Branch LITHIUM 2021-09-09 21:49:00 Luanne Dumont [facility] CBC WITH DIFF 2021-09-09 21:49:00 [place] [facility] CONSENT/REFUSAL FOR 2021-09-09 19:51:22 Doctor Unassigned, No Un [facility] DIAGNOSIS AND TREATMENT Name Medical Branch URINALYSIS 2020-09-30 13:27:00 Chuy Jackson [facility] ADC,CLC OR LCC ONLY - 2020-09-30 13:27:00 Chuy Jackson [facility] INFLUENZA A & B DIRECT Medical B ranch ANTIGEN COVID-19 (ID NOW RAPID 2020-09-30 13:27:00 [facility] Medical Branch Encounters Start End Encounter Admission Attending Care Care Encounter Source Date/Time Date/Time Type Type Clinicians Facility Department ID 2019-01-22 Inpatient E [facility] MED [id number] [facility] W 04:39:00 2021-09-09 2021-09-10 Emergency X DENIA ROGERS ERT [id number] Univers 22:20:00 03:02:00 NEENA cherrie [facility] 2021-09-09 2021-09-10 Emergency X SANCHEZ MTANÍBAL ERT [id number] Univers 22:20:00 03:02:00 NEENA tubbs [facility] 2021-09-09 2021-09-10 [id number] Univers 22:20:00 03:02:00 Neena WALSH 350.1.13.10 i ty of [place] 4.2.7.2.686 [facility] [id number] [address] 2021-09-09 2021-09-09 [facility] [id number] Univers 14:07:00 17:35:00 Luanne WALSH 350.1.13.10 i ty of [place] 4.2.7.2.686 [facility] [id number] [address] 2021-09-09 2021-09-09 Orders Doctor BELKYS [id number] Univers 00:00:00 00:00:00 Only Unassigned, LANA 350.1.13.[address] [facility] 4.2.7.2.686 Joe [id number] [address] 2020-09-30 2020-09-30 Emergency [facility] [id number] Univers 07:22:00 08:18:00 Chuytherese Gove[place] 350.1.13.10 i ty of [place] 4.2.7.2.686 [facility] [id number] [address] 2020-09-30 2020-09-30 Emergency [facility] [id number] 07:22:00 08:18:00 Chuy [place] 350.1.13.10 [place] 4.2.7.2.686 [place] [id number] 2020-09-30 2020-09-30 Emergency X [facility] ERT [id number] Univers 07:22:00 07:22:00 CHUY tubbs [facility] 2020-04-05 2020-04-05 Outpatient [facility] [place] 796 [id number] [facility] 05:44:00 05:44:00 _A_ [id number] Family Practic e 2020-04-05 2020-04-05 Outpatient Humaira-Alekso [facility]FP VFP 796 [id number] [facility] 05:44:00 05:44:00 _A_AH 07866 Family Practic e 2020-04-05 2020-04-05 Outpatient Humaira-Mbmanojo VFP VFP 796 [id number] [facility] 05:44:00 05:44:00 _A_AH 48912 Family Practic e 2020-04-05 2020-04-05 Outpatient Humaira-Mbmanojo VFP VFP [address] [place] [address] 05:44:00 05:44:00 _A_AH 73627 Family Practic e 2020-03-04 2020-03-14 Inpatient [facility] [id number] 15:38:00 15:25:00 [facility] 2019-12-13 2019-12-13 Outpatient Humaira-Alekso VFP VFP [address] [place] [address] 07:22:00 07:22:00 _A_AH 53566 Family Practic e 2019-01-22 2019-01-28 Inpatient [facility] [id number] [id number] Memoria 04:33:00 04:40:00 r Yonis 00 l [facility] 2018-02-21 2018-02-20 [id number] 14:48:00 13:18:00 [facility] Results Test Description Test Time Test Comments Results Result Comments Source TROPONIN I 2021-09-10 05:26:53 Test Item Value Reference Range Interpretation Comme nts TROPONIN I (test code = 0.003 ng/mL See_Comment [Au tomated message] The 2959621899) system which ge nerated this result tra [...] biotin. Lab Interpretation Normal (test code = 35311-3) [facility] [id number] 05:24:16 Test Item Value Reference Range Interpretation Comments NT-proBNP (test code 35 pg/mL See_Comment [Autom ated = 7395380755) message] The system which generated this result transmitted reference range : <=125. The reference range was not used to interpret this result as normal/abnormal . PERRY (test code = PERRY) Biotin has been reported to cause a negative bias, interpret results relative to patient's use of biotin. Lab Interpretation Normal (test code = 65119-3) [facility]2021-[facility]-17 05:16:51 Test Item Value Reference Range Interpretation Comments MAGNESIUM (test code = 0571253602) 1.8 mg/dL 1.7-2.4 Lab Interpretation (test code = Normal 44774-1) [facility]OLIC PAN[facility] ([id number])2021-09-10 05:16:31 Test Item Value Reference Range Interpretation Comments NA (test code = 139 mmol/L 135-145 2842221456) K (test code = 4.0 mmol/L 3.5-5.0 4691571112) CL (test code = 108 mmol/L 98-108 2243796880) CO2 TOTAL (test code 25 mmol/L 23-31 = 9175344175) AGAP (test code = 2-16 5053166001) BUN (test code = 14 mg/dL 7-23 6736465567) GLUCOSE (test code = 88 mg/dL 70-110 1865737057) CREATININE (test code 0.89 mg/dL 0.50-1.04 = 5694554379) TOTAL BILI (test code 0.5 mg/dL 0.1-1.1 = 4626255404) CALCIUM (test code = 10.3 mg/dL 8.6-10.6 3873057934) T PROTEIN (test code 6.9 g/dL 6.3-8.2 = 7560217371) ALBUMIN (test code = 4.3 g/dL 3.5-5.0 0344610950) ALK PHOS (test code = 72 U/L 34-122 6421836258) ALTv (test code = 17 U/L 5-35 2-6) AST(SGOT) (test code 29 U/L 13-40 = 4677280423) eGFR (test code = mL/min/1.73m2 0556217462) PERRY (test code = PERRY) Association of [...] or urine or abnormalities in imaging tests). [facility] [id number] 05:16:16 Test Item Value Reference Range Interpretation Comments CK (test code = 8342972327) 267 U/L 33-194 H Lab Interpretation (test code = Abnormal 11465-0) [facility] THRMPLAS [id number] 05:05:32 Test Item Value Reference Range Interpretation Comments APTT Patient (test See_Comment [Automat ed code = 3173-2) message] The system which generated this result transmitted reference range : 23 - 38 Seconds . The reference range was not used to interpr et this result as normal/abnormal . PERRY (test code = PERRY) The [facility] patient population mean normal value for aPTT is 30 seconds. Lab Interpretation Normal (test code = 49627-2) [facility] RegionalPROT[facility]OM[facility] TIME / [id number] 05:03:30 Test Item Value Reference Range Interpretation [...] tions. Lab Interpretation (test Normal code = 62780-6) [facility] WITH [id number] 04:57:13 Test Item Value Reference Range Interpretation Comments WBC (test code = See_Comment [Automated 5390-2) message] The sy stem which generated this result transmitted reference range : 4.30 - 11.10 10*3/?L. The reference range was not used to interpret this result as normal/abnormal . RBC (test code = See_Comment [Automated 749-8) message] The sy stem which generated this [...] RDW-SD (test code = 41.2 fL 39.0-49.9 61142-7) RDW-CV (test code = 13.0 % 12.0-15.5 788-0) PLT (test code = See_Comment H [Automated 777-3) message] The sy stem which generated this result transmitted reference range : 166 - 358 10*3/ ?L. The reference r katie was not used to interpret this result as normal/abnormal . MPV (test code = 9.6 fL 9.5-12.9 18380-9) NRBC/100 WBC (test See_Comment [Automat ed code = 8197642566) message] The system which generated this result transmitted reference range : 0.0 - 10.0 /100 WBCs. The refer ence range was not u sed to interpret th is result as normal/abnormal . NRBC x10^3 (test code <0.01 See_Comment [Auto mated = 5720246783) message] The s ystem which generated this result transmitted reference range : 10*3/?L. The reference range was not used to interpret this result as normal/abnormal . GRAN MAT (NEUT) % 61.9 % (test code = 770-8) IMM GRAN % (test code 0.30 % = 2151067072) LYMPH % (test code = 26.0 % 736-9) MONO % (test code = 9.5 % 5905-5) EOS % (test code = 1.6 % 713-8) BASO % (test code = 0.7 % 706-2) GRAN MAT x10^3(ANC) 5.91 10*3/uL 1.88-7.09 (test code = 0987113141) IMM GRAN x10^3 (test 0.03 10*3/uL 0.00-0.06 code = 4128754787) LYMPH x10^3 (test code 2.48 10*3/uL 1.32-3.29 = 731-0) MONO x10^3 (test code 0.91 10*3/uL 0.33-0.92 = 742-7) EOS x10^3 (test code = 0.15 10*3/uL 0.03-0.39 711-2) BASO x10^3 (test code 0.07 10*3/uL 0.01-0.07 = 704-7) Lab Interpretation Abnormal (test code = 47990-1) [facility] [id number] 22:24:55 Test Item Value Reference Interpretation Comments Range TROPONIN I (test 0.002 ng/mL See_Comment [Automated code = 2431993716) message] The system which generated this result [...] biotin. Lab Interpretation Normal (test code = 28619-6) [facility]2021-[facility]-16 22:24:34 Test Item Value Reference Range Interpretation Comments [place] (test code = <0.2 0.6-1.2 L 9977661576) PERRY (test code = PERRY) Toxic Range: ? Greater than 1.2 mmol/L Lab Interpretation (test Abnormal code = 38862-3) [facility] METABOLIC PANEL ([id number])2021-09-09 22:13:54 Test Item Value Reference Range Interpretation Comments NA (test code = 139 mmol/L 135-145 9792813779) K (test code = 4.0 mmol/L 3.5-5.0 0683365724) CL (test code = 105 mmol/L 98-108 2257253609) CO2 TOTAL (test code 26 mmol/L 23-31 = 2401876913) AGAP (test code = 2-16 5009537715) BUN (test code = 11 mg/dL 7-23 0599452804) GLUCOSE (test code = 109 mg/dL 70-110 9643736283) CREATININE (test code 0.71 mg/dL 0.50-1.04 = 7549413203) TOTAL BILI (test code 0.6 mg/dL 0.1-1.1 = 3907164887) CALCIUM (test code = 10.4 mg/dL 8.6-10.6 3353077022) T PROTEIN (test code 7.6 g/dL 6.3-8.2 = 3694054032) ALBUMIN (test code = 4.7 g/dL 3.5-5.0 2320017503) ALK PHOS (test code = 78 U/L 34-122 9853602438) ALTv (test code = 19 U/L 5-35 1742-6) AST(SGOT) (test code 28 U/L 13-40 = 1009945326) eGFR (test code = mL/min/1.73m2 3189288707) PERRY (test code = PERRY) Association of [...] or urine or abnormalities in imaging tests). [facility] WITH [id number] 22:03:32 Test Item Value Reference Range Interpretation [...] RDW-SD (test code = 40.2 fL 39.0-49.9 12927-9) RDW-CV (test code = 12.9 % 12.0-15.5 788-0) PLT (test code = See_Comment H [Automated 777-3) message] The sy stem which generated this result transmitted reference range : 166 - 358 10*3/ ?L. The reference r katie was not used to interpret this result as normal/abnormal . MPV (test code = 9.4 fL 9.5-12.9 L 57067-6) NRBC/100 WBC (test See_Comment [Automat ed code = 8506825289) message] The system which generated this result transmitted reference range : 0.0 - 10.0 /100 WBCs. The refer ence range was not u sed to interpret th is result as normal/abnormal . NRBC x10^3 (test code <0.01 See_Comment [Auto mated = 3665181765) message] The s ystem which generated this result transmitted reference range : 10*3/?L. The reference range was not used to interpret this result as normal/abnormal . GRAN MAT (NEUT) % 67.1 % (test code = 770-8) IMM GRAN % (test code 1.00 % = 1887749498) LYMPH % (test code = 21.4 % 736-9) MONO % (test code = 7.9 % 5905-5) EOS % (test code = 1.8 % 713-8) BASO % (test code = 0.8 % 706-2) GRAN MAT x10^3(ANC) 7.35 10*3/uL 1.88-7.09 H (test code = 0155423889) IMM GRAN x10^3 (test 0.11 10*3/uL 0.00-0.06 H code = 6097710698) LYMPH x10^3 (test code 2.34 10*3/uL 1.32-3.29 = 731-0) MONO x10^3 (test code 0.86 10*3/uL 0.33-0.92 = 742-7) EOS x10^3 (test code = 0.20 10*3/uL 0.03-0.39 711-2) BASO x10^3 (test code 0.09 10*3/uL 0.01-0.07 H = 704-7) Lab Interpretation Abnormal (test code = 23444-0) [facility] - INFLUENZA A & B DIRECT MOWEWFC4311-83-19 14:04:00 Test Item Value Reference Range Interpretation Comments Influenza A (test code = 07179-9) Negative Negative Influenza B (test code = 30106-4) Negative Negative Lab Interpretation (test code = Normal 81772-5) [facility]ID NOW RAPID TESTING)2020-09-30 14:03:00 Test Item Value Reference Range Interpretation Comments SARS-CoV-2 Rapid ID NOW Not Detected Not Detected (test code = 33319-3) PERRY (test code = PERRY) ID NOW COVID-19 Assay is an isothermal nucleic acid amplification test intended for the qualitative detection of nucleic acid from SARS-CoV-2 viral RNA in nasopharyngeal (CONSULTING PSYCHOLOGIST) specimens. It is used under Emergency Use [...] indicated. Lab Interpretation Normal (test code = 21547-2) [facility] 13:55:00 Test Item Value Reference Range Interpretation Comments APPEARANCE (test code = Hazy Clear A 1012373321) COLOR (test code = Yellow Yellow 0163506892) PH (test code = 4.8-8.0 9153529223) SP GRAVITY (test code = 1.003-1.030 2586146514) GLU U QUAL (test code = Normal Normal 7326556397) BLOOD (test code = Negative Negative 6508737113) KETONES (test code = 5 mg/dL Negative A 6126606699) PROTEIN (test code = Negative Negative 2887-8) UROBILIN (test code = 2.0 mg/dL Normal A 3325616422) BILIRUBIN (test code = Negative Negative 6748306706) NITRITE (test code = Negative Negative 1653381971) LEUK ROZINA (test code = 25/uL Negative A 8301069903) RBC/HPF (test code = See_Comment [Autom ated message] 7470126765) The system Fengxiafei generated this result transmit ngozi reference range : 0 - 3 HPF. The refe rence range was not u sed to interpret th is result as normal/abnormal . WBC/HPF (test code = See_Comment [Autom ated message] 0386100252) The system Fengxiafei generated this result transmit ngozi reference range : 0 - 5 HPF. The refe rence range was not u sed to interpret th is result as normal/abnormal . BACTERIA (test code = Few Negative A 6128779306) MUCOUS (test code = Slight Negative LPF A 9867179494) SQ EPITH (test code = HPF 6039539743) Lab Interpretation (test Abnormal code = 47606-9) [facility] Ogtlbcasqur3388-67-44 16:42:24 Test Item Value Reference Range Interpretation [...] = 10-24-2020 N Expiration Dt) Thyroid Stimulating Jlucgsn6404-21-18 08:35:16 Test Item Value Reference Range Interpretation Comments TSH (test code = TSH) 1.170 mIU/mL 0.270-4.200 Lipid Pmhqt0096-70-39 08:21:19 Test Item Value Reference Range Interpretation Comments Cholesterol Total 254 mg/dL 0-200 H RISK OF HE ART (test code = DISEASEPublishe d by Cholesterol Total) Citizen Of [place] [employer] Cathie lyte Optimal Borderl ine [...] calculation is LDL/HDL Ratio=L DL Calc/HDL Chol UGIMZZIBUJDF2905-07-91 08:24:008.6[facility] ZbtmwmdKYVBDXWUSHLN1133-75-51 08:24:10542Eurmfuvl PulefqoWLSFSJAXZFCC8305-89-28 08:24:0027[facility] NQSQYMNFPOXT7125-96-22 08:24:95174Gksjpizl VdoezygXOXUQAOWLAGE4914-58-64 08:24:003.6[facility] YrqorlaVZBTKAJLALON5503-97-38 08:24:000.70[facility] RXXSVPPGWIUC8193-72-72 08:24:008.4[facility] ZllfffcTFVRVYIXKEOO0922-56-39 08:24:30470Qojulcmz BdmfjmcGFJXPFIBHRKM4586-72-22 08:24:0086[facility] HUUXJJXSPSBA4738-99-59 08:24:006[facility] HhnjprcMWGGQWAEHC9114-77-94 08:24:00 11.6[facility] SbqyhhnRIRJDUDAUD2017-20-07 08:24:003.78[facility]annHEMATOLOGY 2019-01-26 08:24:0013.3[facility] JtozvjhHZSYVCWCRW1275-56-56 08:24:0034.0[facility] XrsdckjAQJTZDIWOG2833-55-48 08:24:006.3[facility] JrsujzkMTLVBRAPZF0056-50-06 08:24:00 Test Item Value Reference Range Interpretation Comments MCH (test code = MCH) 30.7 pg 27.0-31.0 [facility] DlhglrfRTMESYKPPG1811-96-90 08:24:0090.3[facility]annHEMATOLOGY 2019-01-26 08:24:0034.2[facility] DgtkcwoANBBKIFDGQ1603-62-14 08:24:37574Ctxltlnn PheqsosPHZEMHATKK1555-27-55 08:24:007.5[facility] VlsfyluJFBJHSJXCCAX8565-97-24 08:24:008.6[facility] ReworsmRKDRGNIOGIVW7836-39-12 08:24:72380Qpisbcdo Y[facility] YXYIHSTIETAR7931-01-78 08:24:0027[facility] GyijaybJYDIZQKVUHDA5292-70-53 08:24:00 139[facility] TopnkthAFVDFWQIATTE6245-54-82 08:24:003.6[facility] OUNIKVCYIWJJ5499-43-02 08:24:000.70[facility] GhuzayuNBYQBKIHRUEG7278-44-22 08:24:008.4[facility] TosdllqLNSOXISGLVOR8004-75-56 08:24:54992Zmrjqljg [facility] IQLWPRORETJH1241-53-65 08:24:0086[facility] AjyjknyFYQERQOUMLLP9653-42-55 08:24:00 6[facility] GtehpjcKQJJLSKLHN3015-17-26 08:24:0011.6[facility] HermannHEMATOLOGY 2019-01-26 08:24:003.78[facility] PjzqmdeWOZBYGQGLV3463-10-30 08:24:0013.3[facility] KkzrwtnWSBIDLFMYR6672-28-92 08:24:0034.0[facility] UsarccwYFJYGHOZZO9857-34-21 08:24:006.3[facility] PdstylaKEXAUEEXQS7601-65-37 08:24:00 Test Item Value Reference Range Interpretation Comments MCH (test code = MCH) 30.7 pg 27.0-31.0 [facility] SubuhzkDJPLSNUNKG1229-54-06 08:24:0090.3[facility] HermannHEMATOLOGY 2019-01-26 08:24:0034.2[facility] QzkiuhoLPRBOWUVSI9239-10-42 08:24:52872Cczhucbd RjwrhsaMEIOBVWYPS9518-32-35 08:24:007.5[facility] HermannCHEM KBSJE3364-90-17 09:14:03548Afuahxwl HermannCHEM FYXAM7053-19-17 09:14:008.5[facility]annCHEM FSTRR8691-71-12 09:14:0013.3[facility]annCHEM GVAAW4901-24-95 09:14:0024 [facility]annCHEM OFNKI2520-71-49 09:14:43509Euiwgwjz HermannCHEM PANEL 2019-01-25 09:14:0081[facility]annCHEM YVVGM4376-45-27 09:14:002[facility]annCHEM VPICU2291-78-33 09:14:003.3[facility]annCHEM HHMZF2513-56-14 09:14:000.60[facility]annCHEM JSAWJ3042-62-15 09:14:29662Mmqwqnca HermannCHEM FACCJ9530-74-99 09:14:58955Blytsvrl [facility]annCHE[facility] VGXFC5919-05-87 09:14:008.5 [facility]annCHE[facility] CVRUF7955-04-56 09:14:0013.3[facility]annCHEM PANEL 2019-01-25 09:14:0024[facility]annCHEM QVXUQ4450-48-82 09:14:27488Nbfqoklq [facility]annCHE[facility] XJJWH7577-14-01 09:14:0081[facility]annCHEM KCFDH0068-28-44 09:14:002[facility]annCHEM RPJOP8721-97-62 09:14:003.3[facility]annCHEM QYPGT1600-94-74 09:14:000.60[facility]annCHEM ECNDN4196-80-81 09:14:50774 [facility]annMOLECULAR MJVIYZKVNG1476-43-29 16:22:00Negative (01/23/19 11:22 AM)[facility] HermannMOLECULAR OUAUFDAOFU3995-01-57 16:22:00Negative (01/23/19 11:22 AM)[facility]annCHEM XBJYR1408-27-32 15:42:002.76[facility]annCHEM PANEL 2019-01-23 15:42:002.76[facility]annCHEM FGNCG2963-84-99 12:32:000.9[facility]annCHEM WRGDM6270-98-54 12:32:000.9[facility]annCHEM GDCHJ9038-09-07 10:50:002.0[facility]annCHEM PYLAK8068-48-10 10:50:14430Edbzdauw [facility]annCHEM WFKSK9296-11-51 10:50:0023[facility]annCHEM EGQBU3751-39-49 10:50:69904 [facility]annCHEM OKSSW4267-93-45 10:50:003.1[facility]annCHEM PANEL 2019-01-23 10:50:44300Lqqklyci [facility]annCHEM FTTSD1992-45-41 10:50:005[facility]annCHEM OGTOX8802-39-12 10:50:000.50[facility]annCHEM FTUVE5736-12-03 10:50:007.8[facility]annCHEM KIXAR1697-20-97 10:50:0083[facility]annCHEM OFIWK4019-43-56 10:50:0010.1[facility] UcutgpwPHLJQZXSMB0232-22-51 10:50:000.2 [facility] CwjuvdeLNWLPAWPKR5215-38-07 10:50:000.8[facility] HermannHEMATOLOGY 2019-01-23 10:50:005.5[facility] UvlktetTURYFDYCVG6829-53-26 10:50:002.2[facility] AmlirssGJGLZZJUYE5655-79-52 10:50:000.1[facility] BrnsvknUOMPTIVLCN7911-83-42 10:50:0063.6[facility] NhcuptbLMCJSKOJZE8347-95-99 10:50:008.9[facility] ZCZTBRQMXC8665-02-07 10:50:002.3[facility] RzhsytpONOBFGWMVO0292-19-36 10:50:00 Normal (01/23/19 5:50 AM)[facility] WhppmbxLURUXUOUJN6987-62-65 10:50:00Normal (01/23/19 5:50 AM)[facility] FcdhercHQONQGUSJE5451-46-94 10:50:0025.1[facility] EmjhnsgJOVZDJFVIW8547-60-07 10:50:0013.1[facility] XjsbveaUANHWAVXJI4958-02-24 10:50:77265Rizkmxpr ImsxlmzLFGSXTKQKU9190-55-56 10:50:007.7[facility] JDUNHKWFAC6863-49-38 10:50:008.6[facility] IqucwbrEJKEZAQSJA5391-47-54 10:50:00 10.0[facility] TbobvpkFWANDOKOZG0029-52-60 10:50:0034.6[facility] HermannHEMATOLOGY 2019-01-23 10:50:0028.7[facility] DvjkbwjUEPEBIUYBB9108-12-59 10:50:0087.8[facility] LafyevwETOFTLDMSO0093-41-88 10:50:00 Test Item Value Reference Range Interpretation Comments MCH (test code = MCH) 30.4 pg 27.0-31.[address] [facility] MmogjehJIFKTFYOXH0887-70-48 10:50:003.27[facility] HermannHEMATOLOGY 2019-01-23 10:50:35325Fnkjmpfw ChheqexSYWCLERIJF0019-35-02 10:50:007.7[facility] ZhppakzXFELWAXHCE7113-01-18 10:50:008.6[facility] BfxtqexQXECWCDEDI1594-86-56 10:50:0010.0[facility] AebfqjvYLQDEUQRWD8840-13-87 10:50:0034.6[facility] QRGTKSOSMR5728-57-02 10:50:0028.7[facility] EbdkwwxVIQKKUJOLT4988-24-88 10:50:00 87.8[facility] SuhrnvgIZAFSDMPGP1620-61-59 10:50:00 Test Item Value Reference Range Interpretation Comments MCH (test code = MCH) 30.4 pg 27.0-31.0 [facility] ZrydbmjAEFFUCBNEW3419-41-37 10:50:003.27[facility] HermannCHEM PANEL 2019-01-23 10:50:002.0[facility]annCHEM TQZKG8317-02-71 10:50:75894Ifcxzgty [facility]annCHEM KEAJH6084-42-25 10:50:0023[facility]annCHEM RIOOH8171-14-30 10:50:44668Ocogyssp [facility]annCHEM MBOBL8595-57-62 10:50:003.1[facility]annCHEM QTFRN7516-20-49 10:50:80296Godkdddv [facility]CHE[facility] LJTUO5266-28-38 10:50:005 [facility]annCHE[facility] WAAIV6742-44-44 10:50:000.50[facility]annCHEM PANEL 2019-01-23 10:50:007.8[facility] HermannCHEM MRVDJ6318-04-72 10:50:0083[facility]annCHEM ZNWVW7270-35-18 10:50:0010.1[facility] BkrlnqkHZBIPVKJJZ7342-22-96 10:50:000.2[facility] VwjjndxCGZNWRISLU5598-93-44 10:50:000.8[facility] GZHSDVAYIJ9766-97-00 10:50:005.5[facility] YtrwmngTMACWBSWXG6333-17-68 10:50:002.2 [facility] PtlenzuXYEASMMTIB4448-09-57 10:50:000.1[facility] HermannHEMATOLOGY 2019-01-23 10:50:0063.6[facility] OjzrabbMZGEOIFEOQ4137-78-30 10:50:008.9[facility] BplrqyjCRPXSIPTDJ9870-17-11 10:50:002.3[facility] RrtebqsSKPFOSMFYL0783-65-24 10:50:00Normal (01/23/19 5:50 AM)[facility] CurpxhmVQSEUCFZZO0031-32-29 10:50:00 Normal (01/23/19 5:50 AM)[facility] TozffkwQLXTIRINOQ6262-18-50 10:50:0025.1[facility] AaljzabUIWVBBSHRM8081-73-24 10:50:0013.1[facility] HermannCHEM TFXDK4382-52-79 11:32:002.4[facility]annCHEM UTHHE9217-68-81 11:32:002.4[facility]annCHEM RYVSG4403-14-91 09:04:003.0[facility]annCHEM PLFEY3272-22-05 09:04:003.0 [facility]UR[facility] AND TQQKK8672-23-16 07:14:00 Test Item Value Reference Range Interpretation Comments UA Spec Grav (test code = UA Spec 1.014 1 Grav) [facility] DAPVJ0358-65-91 07:14:00 Test Item Value Reference Range Interpretation Comments UA pH (test code = UA pH) 6.0 1 5.0-8.0 [facility] QFMOW4539-05-67 07:14:00Negative (01/22/19 2:14 AM) [facility] QCOQK7476-04-12 07:14:00Negative *NA*(01/22/19 2:14 AM) [facility] OGKVB0262-93-07 07:14:00Negative *NA*(01/22/19 2:14 AM) [facility] CNSLW3187-57-06 07:14:00Negative *NA*(01/22/19 2:14 AM) [facility] VMUHY0259-98-03 07:14:00Negative (01/22/19 2:14 AM) [facility] NQTNL3104-15-57 07:14:00Negative (01/22/19 2:14 AM) [facility] XDHBU7864-01-66 07:14:00Negative (01/22/19 2:14 AM) [facility] PMFMX0276-22-16 07:14:00<1[facility] MDZTY6026-27-49 07:14:0025[facility]UR[facility] VAAPP1948-15-34 07:14:002 [facility] NMRRA6318-24-24 07:14:00Light Yellow *NA*(01/22/19 2:14 AM)[facility] UGKHU4360-59-36 07:14:00Clear (01/22/19 2:14 AM) [facility] GSYXW9844-05-00 07:14:00 Test Item Value Reference Range Interpretation Comments UA Spec Grav (test code = UA Spec 1.014 1 Grav) [facility] YKZLS5900-74-34 07:14:00 Test Item Value Reference Range Interpretation Comments UA pH (test code = UA pH) 6.0 1 5.0-8.0 [facility] WFYBG2570-26-42 07:14:00Negative (01/22/19 2:14 AM) [facility] SXUDL8184-54-67 07:14:00Negative *NA*(01/22/19 2:14 AM) [facility] WBVWU0837-39-90 07:14:00Negative *NA*(01/22/19 2:14 AM) [facility] OYEEL2413-93-98 07:14:00Negative *NA*(01/22/19 2:14 AM) [facility] KOUNW5832-05-86 07:14:00Negative (01/22/19 2:14 AM) [facility] RMEPI4705-70-73 07:14:00Negative (01/22/19 2:14 AM) [facility] RVZMQ4969-65-83 07:14:00Negative (01/22/19 2:14 AM) [facility] UQZKL6822-91-10 07:14:00<1[facility] KYDRC8279-57-96 07:14:0025[facility] JIOWL1669-74-87 07:14:002 [facility] JZUHB3655-98-70 07:14:00Light Yellow *NA*(01/22/19 2:14 AM)[facility] JYMTW5604-48-69 07:14:00Clear (01/22/19 2:14 AM) [facility] CwahruiAYELG8047-99-12 05:16:000.90[facility] MsrrswiISANV8953-92-58 05:16:000.90[facility] MnosnszCACFUDIETJ1388-13-28 05:01:007.3[facility] OFXIGGXGDD9787-93-97 05:01:0014.0[facility] HmcpnefWULHYDDXWD9343-89-16 05:01:00 4.85[facility] KsrwycjWMCFPOQORI8879-99-15 05:01:0042.7[facility]annHEMATOLOGY 2019-01-22 05:01:00 Test Item Value Reference Range Interpretation Comments MCH (test code = MCH) 29.0 pg 27.0-31.0 [facility] IyvepktRPRRVQZKQS0371-48-76 05:01:0088.2[facility]annHEMATOLOGY 2019-01-22 05:01:00 Test Item Value Reference Range Interpretation Comments INR (test code = INR) 0.96 1 0.85-1.17 [facility] FiezyxgUTFBVGPOHD0939-35-40 05:01:00 Test Item Value Reference Range Interpretation Comments PT (test code = PT) 12.6 s 12.0-14.7 [facility] MpeffkuQAQXQPCJCV0530-36-58 05:01:00 Test Item Value Reference Range Interpretation Comments PTT (test code = PTT) 25.9 s 22.9-35.[address] [facility] HermannBLOOD BANK IHDLNSP8468-11-64 05:01:00Negative (01/22/19 12:01 AM) [facility]annCARDIAC JXKOWWA7384-76-55 05:01:00<0.02[facility] CARDIAC YAWVPUP6347-16-56 05:01:0049[facility] HermannCHEM AAJLQ8000-83-04 05:01:000.6[facility] HermannCHEM UYCLQ8831-86-67 05:01:94461Mtrtkccf HermannCHEM NSMEL0953-97-62 05:01:004.0[facility] HermannCHEM EPEPQ2117-99-50 05:01:0017 [facility]annCHEM ZCFPZ5442-85-05 05:01:0025[facility]annCHEM PANEL 2019-01-22 05:01:008.1[facility] HermannCHEM FFRKN3499-34-80 05:01:00 Test Item Value Reference Range Interpretation Comments B/C Ratio (test code = B/C Ratio) 20 1 6-25 [facility]annCHEM DTQVZ7776-77-05 05:01:00 Test Item Value Reference Range Interpretation Comments A/G Ratio (test code = A/G Ratio) 1.0 1 0.7-1.6 [facility]annCHE[facility] JETCX0164-55-66 05:01:004.1[facility]annCHEM PANEL 2019-01-22 05:01:006.90[facility] NwjyniwPSDRAQNPANHYC0541-14-61 05:01:00Negative *NA*(01/22/19 12:01 AM)[facility] IjobekvHRYNSBUGDU9081-05-68 05:01:000.1[facility] JkpsaadPXTUQLAABC2782-49-90 05:01:000.7[facility] XjqdjolIHSYJAHLXB4452-34-76 05:01:000.0[facility] XbngxadWEPTINDJVH6100-51-39 05:01:000.0[facility] AAQVSXYIFQ0520-53-87 05:01:000.9[facility] GrqppyuNZCLUVYRZY6135-40-07 05:01:008.6 [facility] WkueefiYEHLPOFMIA7296-13-85 05:01:000.6[facility]annHEMATOLOGY 2019-01-22 05:01:0086.5[facility] YehjeiuSWGFZEZHML4615-14-15 05:01:005.7[facility] BrunjnbVPDQMHUZGL4239-80-59 05:01:006.9[facility] WrligicYULFKOMHPP3265-38-47 05:01:009.9[facility] IwzdgilVLYBYSLKZS6825-84-03 05:01:0032.8[facility] UAEHANWHDX7038-71-32 05:01:0013.6[facility] CyxlxtgCWERLHJWDC9398-50-94 05:01:00 443[facility] QebxrcyHLKGCQCCUN7666-23-07 05:01:007.3[facility]annHEMATOLOGY 2019-01-22 05:01:0014.0[facility] PbhndjaRVAXZHZZIJ2319-24-31 05:01:004.85[facility] PivzetoQQYLNFJTBT0867-33-84 05:01:0042.7[facility] UgbsjlsIGGWZUHEIL0311-85-31 05:01:00 Test Item Value Reference Range Interpretation Comments MCH (test code = MCH) 29.0 pg 27.0-31.[address] [facility] KmlanjqFDKUWRZGXX9653-24-45 05:01:0088.2[facility]annHEMATOLOGY 2019-01-22 05:01:00 Test Item Value Reference Range Interpretation Comments INR (test code = INR) 0.96 1 0.85-1.17 [facility]FB112[facility] 05:01:00 Test Item Value Reference Range Interpretation Comments PT (test code = PT) 12.6 s 12.0-14.7 [facility]entonRdpitavAACRXTKOBL3913-38-44 05:01:00 Test Item Value Reference Range Interpretation Comments PTT (test code = PTT) 25.9 s 22.9-35.8 [facility] GLZUXFS4828-63-24 05:01:00Negative (01/22/19 12:01 AM) [facility] XEQAHQV0132-45-30 05:01:00<0.02[facility] CARDIAC BUDFFDZ7461-31-52 05:01:0049[facility] HermannCHEM CTSDO3015-45-67 05:01:000.6[facility] HermannCHEM IRRTZ2514-09-25 05:01:10901Czzoakgq HermannCHEM JMYBE3733-84-46 05:01:004.0[facility] HermannCHEM WNKHF9824-64-36 05:01:0017 [facility]annCHEM QFNEA8208-18-76 05:01:0025[facility]annCHEM PANEL 2019-01-22 05:01:008.1[facility] HermannCHEM GNZWF1642-32-25 05:01:00 Test Item Value Reference Range Interpretation Comments B/C Ratio (test code = B/C Ratio) 20 1 6-25 [facility]annCHEM PGVIS6660-24-39 05:01:00 Test Item Value Reference Range Interpretation Comments A/G Ratio (test code = A/G Ratio) 1.0 1 0.7-1.6 [facility]annCHEM MYBPW4387-23-09 05:01:004.1[facility] HermannCHEM PANEL 2019-01-22 05:01:006.90[facility] VmywchdHQZPXZKXBGIEZ9458-87-86 05:01:00Negative *NA*(01/22/19 12:01 AM)[facility] OinzdzpCJRXYACBFB4189-11-26 05:01:000.1[facility] XfcuqrvKBUHHZPIHF4690-14-99 05:01:000.7[facility] BezljrxKCBTTNWRLN3266-71-65 05:01:000.0[facility] YprklapYXMIKUAMUE1656-99-31 05:01:000.0[facility] YXCVJSQNGK4008-07-20 05:01:000.9[facility] YsxzxniDCHIBHPKTG9337-92-66 05:01:008.6 [facility] TqjbsamLYBEFFRGRT6388-73-29 05:01:000.6[facility]annHEMATOLOGY 2019-01-22 05:01:0086.5[facility] YzufqubVLNYESIZCY1278-64-90 05:01:005.7[facility] TdxryveUTYATYKKIN4563-61-92 05:01:006.9[facility] GzidryiTDLYOIABQT4846-13-29 05:01:009.9[facility] UdbqlywJXBYROWLTM7674-10-52 05:01:0032.8[facility] SIFZJYIUSN4151-86-53 05:01:0013.6[facility] RxndjpeLQPXELRUWO9698-62-51 05:01:00 443[facility] EaqzynbMMQ5T7139-96-19 14:36:00 Test Item Value Reference Range Interpretation [...] 0.00-0.01 N code = ETOHU) Comprehensive Metabolic Fdcxw3173-39-72 14:36:00 Test Item Value Reference Range Interpretation [...] been validated by e MDRD study and shoul d be interpretedwith caution.eGFR Re sult Interpretation: eGFR > or = 60 is in t he Normal RangeeGF R < 60 may mean kidney diseaseeGFR < 1 5 may mean kidney failureRange s recommended by the National Kidney Foundation,http ://nkd ep.nih.gov Urinalysis Rhcnoonp3470-12-96 14:32:00 Test Item Value Reference Range Interpretation Comments Color (test code = COLOR) Yellow Yellow,Straw,Pl N yellow Clarity (test code = Clear Clear N CLAR) Specific [place] (test 1.024 1.001-1.035 N code = SPGR) [...] code = Few /HPF BACT) CBC with Hqyhohtaqjfu1657-21-22 14:21:00 Test Item Value Reference Range Interpretation [...] code = ALYMPH) 3.0 K/cumm 0.5-4.6 N Fajardo Abs (test code = AMONO) 0.5 K/cumm 0.0-1.2 N Eos Abs (test code = AEOS) 0.19 K/cumm 0.00-0.74 N Baso Abs (test code = ABASO) 0.1 K/cumm 0.00-0.21 N
--- NOTE | 2021-10-13 08:14 | EDPHYS ---
Physician Documentation [facility] Name: Tiffany Quinn Age: 51 yrs Sex: Female : 1970 Arrival Date: 10/13/2021 Time: 07:11 Bed 12 Private MD: ED Physician Bill Palm HPI: 10/13 07:59 This 51 yrs old Female presents to ER via Ambulatory with complaints of jo Headache. 07:59 The patient complains of pain to the forehead, left frontal area and right frontal jo area. The patient describes the headache as aching. Onset: The symptoms/episode began/occurred yesterday. Associated signs and symptoms: The patient has no apparent associated signs or symptoms. Severity of symptoms: At its worst the pain was mild, in the emergency department the pain is unchanged. Headache History: The patient has had previous headaches and this one is different than previous episodes. The patient has experienced similar episodes in the past, several times. LABORATORY MONITOR: 07:34 LMP N/A - Irregular menses ap3 Historical: - Allergies: 07:31 Pepcid; ap3 - PMHx: 07:31 ADD; Anxiety; Bipolar disorder; ap3 - PSHx: 07:31 Cholecystectomy; hernia repair; ap3 - Immunization history:: Adult Immunizations unknown. - Social history:: Smoking status: Patient reports the use of cigarette tobacco products, denies chronic smoking, but will smoke occasionally, Patient uses street drugs, Methamphetamine (Meth). - Family history:: not pertinent. ROS: 07:59 Constitutional: Negative for fever, chills, and weight loss, Eyes: Negative for injury, jo pain, redness, and discharge, ENT: Negative for injury, pain, and discharge, Neck: Negative for injury, pain, and swelling, Cardiovascular: Negative for chest pain, palpitations, and edema, Respiratory: Negative for shortness of breath, cough, wheezing, and pleuritic chest pain, Abdomen/GI: Negative for abdominal pain, nausea, vomiting, diarrhea, and constipation, Back: Negative for injury and pain, : Negative for injury, bleeding, discharge, and swelling, MS/Extremity: Negative for injury and deformity, Skin: Negative for injury, rash, and discoloration, Psych: Negative for depression, anxiety, suicide ideation, homicidal ideation, and hallucinations, Allergy/Immunology: Negative for hives, rash, and allergies, Endocrine: Negative for neck swelling, polydipsia, polyuria, polyphagia, and marked weight changes, Hematologic/Lymphatic: Negative for swollen nodes, abnormal bleeding, and unusual bruising. 07:59 Neuro: Positive for headache. Exam: 07:59 Constitutional: This is a well developed, well nourished patient who is awake, alert, jo and in no acute distress. Head/Face: Normocephalic, atraumatic. Eyes: Pupils equal round and reactive to light, extra-ocular motions intact. Lids and lashes normal. Conjunctiva and sclera are non-icteric and not injected. Cornea within normal limits. Periorbital areas with no swelling, redness, or edema. ENT: Nares patent. No nasal discharge, no septal abnormalities noted. Tympanic membranes are normal and external auditory canals are clear. Oropharynx with no redness, swelling, or masses, exudates, or evidence of obstruction, uvula midline. Mucous membranes moist. Neck: Trachea midline, no thyromegaly or masses palpated, and no cervical lymphadenopathy. Supple, full range of motion without nuchal rigidity, or vertebral point tenderness. No Meningismus. Chest/axilla: Normal chest wall appearance and motion. Nontender with no deformity. No lesions are appreciated. Cardiovascular: Regular rate and rhythm with a normal S1 and S2. No gallops, murmurs, or rubs. Normal PMI, no JVD. No pulse deficits. Respiratory: Lungs have equal breath sounds bilaterally, clear to auscultation and percussion. No rales, rhonchi or wheezes noted. No increased work of breathing, no retractions or nasal flaring. Abdomen/GI: Soft, non-tender, with normal bowel sounds. No distension or tympany. No guarding or rebound. No evidence of tenderness throughout. Back: No spinal tenderness. No costovertebral tenderness. Full range of motion. Skin: Warm, dry with normal turgor. Normal color with no rashes, no lesions, and no evidence of cellulitis. MS/ Extremity: Pulses equal, no cyanosis. Neurovascular intact. Full, normal range of motion. Neuro: Awake and alert, GCS 15, oriented to person, place, time, and situation. Cranial nerves II-XII grossly intact. Motor strength 5/5 in all extremities. Sensory grossly intact. Cerebellar exam normal. Normal gait. Psych: Awake, alert, with orientation to person, place and time. Behavior, mood, and affect are within normal limits. 07:59 Neuro: Orientation: is normal, appropriate for stated age, no acute changes, Mentation: is normal, appropriate for stated age, no acute changes, Memory: is normal, appropriate for stated age, no acute changes, Cranial nerves: grossly normal, is grossly normal based on the patient's age, no acute changes, Cerebellar function: is grossly normal, is grossly normal based on the patient's age, no acute changes, Motor: is normal, is grossly normal based on the patient's age, Sensation: is normal, no obvious gross deficits, appropriate Gait: not applicable is steady, appropriate for age, Deep tendon reflexes are 2+ (normal) in the bilateral brachioradialis, bicep, tricep and patellar and Achilles tendons, seizure activity, is not displayed by the patient. 07:59 Psych: Behavior/mood is pleasant, Affect is calm, Oriented to person, place, time, Patient has no thoughts/intents to harm self or others. Judgement / Insight is normal. Memory is normal. Delusions/hallucinations are not present. Vital Signs: 07:30 BP 133 / 91; Pulse 82; Resp 17; Temp 97.8(O); Pulse Ox 99% on R/A; Weight 71.67 kg; ap3 Height 5 ft. 3 in. (160.02 cm); 07:30 Body Mass Index 27.99 (71.67 kg, 160.02 cm) ap3 Jovani Coma Score: 07:59 Eye Response: spontaneous(4). Verbal Response: oriented(5). Motor Response: obeys jo commands(6). Total: 15. MDM: 07:28 Patient medically screened. jo 07:59 Differential diagnosis: cluster headache, temporal arteritis, tension headache. Data jo reviewed: vital signs, nurses notes. Data interpreted: laboratory monitor: rate is 82 beats/min, rhythm is regular, Pulse oximetry: on room air is 99 %. Counseling: I had a detailed discussion with the patient and/or guardian regarding: the historical points, exam findings, and any diagnostic results supporting the discharge/admit diagnosis, the need for outpatient follow up, for definitive care, a family practitioner, a neurologist. Administered Medications: No medications were administered Disposition Summary: 10/13/21 08:13 Discharge Ordered Location: Home jo Problem: new jo Symptoms: have improved jo Condition: Stable jo Diagnosis - Bipolar disorder, unspecified jo - Headache jo - Anxiety disorder, unspecified jo Followup: jo - With: Private Physician - When: 2 - 3 days - Reason: Recheck today's complaints, Continuance of care, Re-evaluation by your physician Followup: jo - With: Chilo Smith MD - When: 2 - 3 days - Reason: Recheck today's complaints, Re-evaluation by your physician Followup: jo - With: Paul Santos MD - When: 2 - 3 days - Reason: Recheck today's complaints, Re-evaluation by your physician Discharge Instructions: - Discharge Summary Sheet jo - General Headache Without Cause jo - Substance Use Disorder jo - General Headache Without Cause, [id number] jo - Anjana jo - Managing Bipolar Disorder jo - Mixed Bipolar Disorder jo - Supporting Someone With Bipolar Disorder jo - Substance Use Disorder and Mental Illness [facility] Forms: - Medication Reconciliation Form jo - Thank You Letter jo - Antibiotic Education jo - Prescription Opioid Use [facility] Prescriptions: - Hydroxyzine HCl 25 mg Oral Tablet - take 1 tablet by ORAL route every 6 hours As needed; 30 tablet; Refills: 0, [facility] Product Selection Permitted - Tylenol 325 mg Oral Tablet - take 2 tablets by ORAL route every 6 hours as needed; 1 bottle; Refills: 0, [facility] Product Selection Permitted Signatures: Bill Palm MD MD cha Prokisch, Amanda RN RN ap3
--- NOTE | 2021-10-13 08:14 | ER ---
Nurse's Notes [facility] Name: Tiffany Quinn Age: 51 yrs Sex: Female : 1970 Arrival Date: 10/13/2021 Time: 07:11 Bed 12 Private MD: Diagnosis: Bipolar disorder, unspecified;Headache;Anxiety disorder, unspecified Presentation: 10/13 07:30 Chief complaint: Patient states: she has a headache and isn't sure if it is okay to ap3 take the medication the ER provider prescribed her last night. Coronavirus screen: At this time, the client does not indicate any symptoms associated with coronavirus-19. Ebola Screen: No symptoms or risks identified at this time. Initial Sepsis Screen: Does the patient meet any 2 criteria? No. Patient's initial sepsis screen is negative. Does the patient have a suspected source of infection? No. Patient's initial sepsis screen is negative. Risk Assessment: Do you want to hurt yourself or someone else? Patient reports no desire to harm self or others. Onset of symptoms was October 12, 2021. 07:30 Method Of Arrival: Ambulatory ap3 07:30 Acuity: MANUEL 5 ap3 Triage Assessment: 07:32 Headache History: The patient has had previous headaches and this one is similar to ap3 previous episodes, and this one is less severe than previous episodes. General: Appears in no apparent distress. Behavior is cooperative, anxious. Pain: Complains of pain in head Pain currently is 4 out of 10 on a pain scale. Pain began 2-3 days ago. Also complains of no other associated symptoms. Neuro: Level of Consciousness is awake, alert, obeys commands, Oriented to person, place, time, situation, Appropriate for age Moves all extremities. Gait is steady, Speech is normal, Facial symmetry appears normal. Cardiovascular: Capillary refill < 3 seconds Patient's skin is warm and dry. Respiratory: Airway is patent Respiratory effort is even, unlabored, Respiratory pattern is regular, symmetrical. MEDICAL PATHOLOGIST: 07:34 LMP N/A - Irregular menses ap3 Historical: - Allergies: 07:31 Pepcid; ap3 - PMHx: 07:31 ADD; Anxiety; Bipolar disorder; ap3 - PSHx: 07:31 Cholecystectomy; hernia repair; ap3 - Immunization history:: Adult Immunizations unknown. - Social history:: Smoking status: Patient reports the use of cigarette tobacco products, denies chronic smoking, but will smoke occasionally, Patient uses street drugs, Methamphetamine (Meth). - Family history:: not pertinent. Screenin:34 Abuse screen: Denies threats or abuse. Nutritional screening: No deficits noted. ap3 Tuberculosis screening: No symptoms or risk factors identified. Fall Risk None identified. Assessment: 07:33 Reassessment: Please see triage assessment. Pain: Complains of pain in head. ap3 Vital Signs: 07:30 BP 133 / 91; Pulse 82; Resp 17; Temp 97.8(O); Pulse Ox 99% on R/A; Weight 71.67 kg; ap3 Height 5 ft. 3 in. (160.02 cm); 07:30 Body Mass Index 27.99 (71.67 kg, 160.02 cm) ap3 Jovani Coma Score: 07:59 Eye Response: spontaneous(4). Verbal Response: oriented(5). Motor Response: obeys jo commands(6). Total: 15. ED Course: 07:11 Patient arrived in ED. rg4 07:25 Shawna Lim, RN is Primary Nurse. ap3 07:28 Bill Palm MD is Attending Physician. jo 07:31 Triage completed. ap3 07:34 Arm band placed on right wrist. ap3 07:34 Patient has correct armband on for positive identification. Bed in low position. Call ap3 light in reach. Pulse ox on. NIBP on. Door closed. Noise minimized. 07:34 No provider procedures requiring assistance completed. ap3 08:11 Chilo Smith MD is Referral Physician. jo 08:11 Paul Santos MD is Referral Physician. jo 08:19 Patient did not have IV access during this emergency room visit. ap3 Administered Medications: No medications were administered Outcome: 08:13 Discharge ordered by . jo 08:19 Discharged to home ambulatory. ap3 08:19 Condition: good 08:19 Discharge instructions given to patient, Instructed on discharge instructions, follow up and referral plans. medication usage, Demonstrated understanding of instructions, follow-up care, medications, Prescriptions given X 2. 08:20 Patient left the ED. ap3 Signatures: Bill Palm MD MD cha Garcia, Rubi rg4 Prokisch, Shawna, RN RN ap3
[2021-10-13 08:34] VITALS: BP 133/91; TEMP 97.8; O2SAT 99
== END 2021-10-13 08:20 | disposition home or self-care (01) ==
LOC: ER 07:06
DX: R51.9 Headache, unspecified (principal); F41.9 Anxiety disorder, unspecified; F31.9 Bipolar disorder, unspecified; Z72.0 Tobacco use; Z88.8 Allergy status to other drugs, medicaments and biological substances
CPT/HCPCS: 99283

== ENCOUNTER 2021-10-16 16:25 | Emergency (ER) | payer OTHER ==
--- OUTSIDE RECORDS SUMMARY | 2021-10-16 16:32 | XMS REPORT | Continuity of Care Document ---
:1970 Author Organization [facility] t Address [address] [place] [address] Care Team Providers Name Role Phone UNKNOWN [...] Date Expiration Date S nasim [place] [id number] 2019 PLUS CLASSIC/VALUE 00:00:00 MEDICAID [facility] [id number] 2015 00:00:00 [place] OF [place] - [id number] 2020 [place] 00:00:00 (MEDICARE REPLACEMENT/ADVANT AGE - HMO) Problems Condition Condition Condition Status Onset Resolution Last Treating Co mments Source Name Details Category Date Date Treatment Clinician Date LOW PB Diagnosis Active 2019-01-22 Mem oria 3 01:52:00 l LOW PB 00:00: [place] 00 Active 01/21/2019 [facility] INFECTIOUS Diagnosis Active 2019-02-06 Memoria GASTROENTE 330 08:58:00 l RITIS AND 00:00: [place] COLITIS INFECTIOUS 00 GASTROENTE RITIS AND COLITIS Active 01/21/2019 [facility] Irregular Irregular Disease Active Uni vers menstrual menstrual 8-15 ity of cycle cycle 00:00: [address] Skin Skin Disease Active Univers lesion lesion 8-15 ity of 00:00: [address] Psychiatri Psychiatri Disease Active U nivers c disorder c disorder 8-15 it y of 00:00: [address] Well woman Well woman Disease Active U nivers exam with exam with 8-15 ity of routine routine 00:00: [place] gynecologi gynecologi 00 Me dical nicky exam nicky exam Branch INFECTIOUS Diagnosis Active 2019-02-06 Memoria GASTROENTE 08:58:00 l RITIS AND Yonis COLITIS, INFECTIOUS GASTROENTE RITIS AND COLITIS, Active [facility] Allergies, Adverse Reactions, Alerts Allergy Allergy Status Severity Reaction(s) Onset Inactive Treating Comm ents Source Name Type Date Date Clinician NO KNOWN Drug Active Univers ALLERGIE Class ity of S [facility] Phenerga Phenerga Active [place] a n n winifred Somers Social History Social Habit Start Date Stop Date Quantity Comments Source History of Cigarette Smoker Universi ty of tobacco use [facility] Tobacco Comment 2-3 cigs a day [facility] Exposure to Not sure [place] of SARS-CoV-2 [facility] (event) [place] Tobacco use and 2016-06-08 2016-06-08 [facility]00[facility]00 [facility] Alcohol intake 2016-06-08 2016-06-08 0 /d University of 00:00:00 00:00:00 [facility] Sex Ass[birth year] At [birth year] Universit y of 00:00:00 00:00:00 [facility] Smoking Status Start Date Stop Date Source Social History 2019-01-22 05:00:12 Jeanne urena Current some day smoker 2016-06-08 00:00:00 [facility] Medications Ordered Filled Start Stop Current [...] ity of (PF)) 06:45: 05:54 ONCE, 1 [place] injection 4 00 :00 dose, On Medi nicky mg Wed09/10/21 at 0045, RANDA NaCl 0.9% 2020-10- No 1000mL at 999 Uni vers (NS) bolus 11-10 mL/hr, ity of infusion 05:30: 05:30 1,000 mL, Joe as 1,000 mL 00 :00 IV Medical Infusion, Branch ONCE, 1 dose, On Wed09/09/21 at 2330, RANDA amoxicillin 2020-10 Yes [id number] 500mg Take 1 Univers 500 mg 11-10 capsule by ity of capsule 00:00: mouth 3 [place] 00 (three) Medical times Branch daily. ondansetron 2019-10- No 4mg 4 mg, [facility] ers (ZOFRAN-ODT 12-01- Oral, ity of [...] 4 mg 0830, Routine ondansetron 2019-10 Yes [id number] 4mg Take 1 Univers 4 mg 2-07 tablet by ity of disintegrat 00:00: mouth [place] ing tablet 00 every 8 Medica l (eight) Branch hours as needed for Nausea and Vomiting (N/V). ondansetron 2019-10 Yes [id number] 4mg Take 1 Univers 4 mg 2-07 tablet by ity of disintegrat 00:00: mouth [place] ing tablet 00 every 8 Medica l (eight) Branch hours as needed for Nausea and Vomiting (N/V). ondansetron 2019-10 Yes [id number] 4mg Take 1 Univers 4 mg 2-07 tablet by ity of disintegrat 00:00: mouth [place] ing tablet 00 every 8 Medica l (eight) Branch hours as needed for Nausea and Vomiting (N/V). ondansetron 2019-10 Yes [id number] 4mg Take 1 Univers 4 mg 2-07 tablet by ity of disintegrat 00:00: mouth [place] ing tablet 00 every 8 Medica l (eight) Branch hours as needed for Nausea and Vomiting (N/V). ciprofloxac 2018- Yes 500 mg = 1 Memoria in 500 mg 4-04 tab, PO, l oral tablet 17:35: [id number], X Yonis 00 4 day, # 8 tab, 0 Refill(s) Ondansetron Yes 4 mg = 1 Me moria 4 MG Oral 4-04 tab, PO, l Tablet 17:35: Q6H, PRN [place] [Zofran] 00 Nausea/Vom iting, # 20 tab, [...] 4-04 tab, PO, l oral tablet 17:35: [id number], X Yon[place] 00 4 day, # 8 tab, 0 Refill(s) Ondansetron 2019-0 Yes 4 mg = 1 Me moria 4 MG Oral 4-04 tab, PO, l Tablet 17:35: Q6H, PRN [place] [Zofran] 00 Nausea/Vom iting, # 20 tab, [...] 4-03 (Same as: l 13:26: K-Dur 20) [place] 00 "Do Not Crush" Give with food [...] ia 4-01 (Same As: l 18:00: KlonoPIN) [place] 00 Clonazepam No Notes: Memor ia 4- (Same As: l 18:00: KlonoPIN) [place] Flagyl No Notes: Memoria 4- (Same as: l 15:00: Flagyl) Yonis 00 Take with food/ avoid alcohol Cipro No Notes: May Memori a 4- interfere l 15:00: w/enteral [place] 00 feedings - Take 1 hr before or 2 hrs after antacids, dairy pdt & minerals. On empty stomach. Flagyl No Notes: Memoria 4- (Same as: l 15:00: Flagyl) [place] 00 Take with food/ avoid alcohol Cipro [...] PO, ONCE, l mEq oral 14:20: 0 [place] tablet, 00 Refill(s) extended release Metronidazo No 500 mg, Mem oria le 500 MG 4-01 PO, l Oral Tablet 14:20: [id number], 0 H ermann [Flagyl] 00 Refill(s) Ciprofloxac No 500 mg, Mem oria in 500 MG 4-01 PO, l Oral Tablet 14:20: [id number], 0 Y[place] [Cipro] 00 Refill(s) potassium Yes [...] MG 4-01 PO, l Oral Tablet 14:20: [id number], 0 [place] [Cipro] 00 Refill(s) Potassium No Notes: Memori [...] -01 (Same as: l 14:17: K-Dur 20) [place] 00 "Do Not Crush" Give with food [...] Memoria 3-31 (Same as: l 22:00: Pepcid) [place] 00 Strattera Yes 0.5 mg/kg, Me moria [...] tab, PO, l Tablet 21:08: BID, 0 [place] [Risperdal] 00 Refill(s) Strattera Yes 0.5 mg/kg, [...] tab, PO, l Tablet 21:08: BID, 0 [place] [Risperdal] 00 Refill(s) Zosyn No Notes: Memoria [...] Syringe -31 25 mL, l 09:47: Route: [place] 00 IVP, Drug Form: INJ, Dosing Weight 75.994, kg, PRN, PRN Blood Glucose Results, Start date: 01/22/19 4:47:00 CDT, Duration: 30 day, Stop date: 02/21/19 4:46:00 CDT Ondansetron 2018-0 No Notes: Estrada doni 3-31 (Same as: l 09:47: Kurtis) Yonis MEDICATION WASTE Product Size: 4 mg Product Wasted: ___ mg Glucagon 2019-0 No 1 mg, Memoria 3-31 Route: IM, l 09:47: Drug form: [place] 00 PDR/INJ, PRN, Dosing Weight 75.994, kg, [...] Memoria 3-31 (Same as: l 06:10: Zosyn) [place] 00 Dosing based on Piperacill in component MEDICATION WASTE Product Size: 3375 mg Product Wasted: ___ mg Zosyn No Notes: Memoria 3-31 (Same as: l 06:10: Zosyn) Yonis 00 Dosing based on Piperacill in component MEDICATION WASTE Product Size: 3375 mg Product Wasted: ___ mg NS (Bolus) No 1,000 mL, Me moria IV 3-31 1,000 l 05:44: ml/hr, [place] 00 Infuse Over: 1 hr, Route: IV, [...] (KLONOPIN 8-15 mouth. ity of ORAL) 19:02: [place] [address] Medical Branch CITALOPRAM 2016-0 Yes Take by Uni vers HYDROBROMID 8-15 mouth. ity of E 19:02: [place] (CITALOPRAM 27 Medical ORAL) Branch ibuprofen 2016-0 Yes 200mg Take 200 Uni vers (ADVIL) 200 8-15 mg by ity of mg tablet 14:02: mouth [place] [address] every 6 Medical (six) Branch hours as needed. CLONAZEPAM 2016-0 Yes Take by Uni vers (KLONOPIN 8-15 mouth. ity of ORAL) 14:02: [place] [address] Medical Branch CITALOPRAM 2016-0 Yes Take by Uni vers HYDROBROMID 8-15 mouth. ity of E 14:02: [place] (CITALOPRAM 27 Medical ORAL) Branch ibuprofen 0 Yes 200mg Take 200 Uni vers (ADVIL) 200 8-15 mg by ity of mg tablet 14:02: mouth [place] [address] every 6 Medical (six) Branch hours as needed. CLONAZEPAM 2016-0 Yes Take by Uni vers (KLONOPIN 8-15 mouth. ity of ORAL) 14:02: [address] Branch CITALOPRAM 2016-0 Yes Take by Uni vers HYDROBROMID 8-15 mouth. ity of E 14:02: [place] (CITALOPRAM 27 Medical ORAL) Branch ibuprofen 2015-0 Yes 200mg Take 200 Uni vers (ADVIL) 200 8-15 mg by ity of mg tablet 14:02: mouth [place] [address] every 6 Medical (six) Branch hours as needed. CLONAZEPAM 2016-0 Yes Take by Uni vers (KLONOPIN 8-15 mouth. ity of ORAL) 14:02: [address] Branch CITALOPRAM 2016-0 Yes Take by Uni vers HYDROBROMID 8-15 mouth. ity of E 14:02: [place] (CITALOPRAM 27 Medical ORAL) Branch misoprostol 2015-0 [...] Diastolic blood 2021-09-10 08:01:00 97 mm[Hg] [facility] Heart rate 2021-09-10 08:01:00 87 /min [facility] Respiratory rate 2021-09-10 08:01:00 20 /min [facility] Oxygen saturation in 2021-09-10 08:01:00 98 /min [facility] Arterial blood by [facility] Pulse oximetry [place] Body temperature 2021-09-10 04:28:51 37.17 Ruthann [facility] Body height 2021-09-10 04:26:00 154.9 cm [facility] Body weight 2021-09-10 04:26:00 81.647 kg [facility] BMI 2021-09-10 04:26:00 34.01 kg/m2 [facility] Systolic blood 2021-09-09 20:06:00 150 mm[Hg] Univer sity of [facility] Diastolic blood 2021-09-09 20:06:00 89 mm[Hg] [facility] Heart rate 2021-09-09 20:06:00 108 /min [facility] Body temperature 2021-09-09 20:06:00 37.22 Ruthann [facility] Respiratory rate 2021-09-09 20:06:00 18 /min [facility] Oxygen saturation in 2021-09-09 20:06:00 99 /min University of Arterial blood by [facility] Pulse oximetry Branch Body weight [...] 98 /min University of Arterial blood by [facility] Pulse oximetry Branch Body temperature [...] 98 /min University of Arterial blood by [facility] Pulse oximetry Branch Body temperature 2020-09-30 13:26:00 37.22 Ruthann Univ [facility] [place] [facility] Respiratory rate 2020-09-30 13:26:00 16 /min Univ [facility] [place] [facility] Body weight 2020-09-30 13:26:00 72.576 kg [facility] [place] [facility] BMI 2020-09-30 13:26:00 28.80 kg/m2 [facility] [place] [facility] Temperature Oral (F) 2019-01-28 01:16:00 98.6 F [facility] Systolic (mm Hg) 2019-01-28 01:16:00 Estrada rial [place] Diastolic (mm Hg) 2019-01-28 01:16:00 Mem orial [place] Heart Rate 2019-01-28 01:16:00 [facility] [place] Respitory Rate 2019-01-28 01:16:00 Memori al Yonis Systolic (mm Hg) 2019-01-27 20:42:00 Estrada rial [place] Diastolic (mm Hg) 2019-01-27 20:42:00 Mem orial [place] Heart Rate 2019-01-27 20:42:00 [facility] [place] Respitory Rate 2019-01-27 20:42:00 Memori al Yonis Temperature Oral (F) 2019-01-27 20:42:00 98.5 F [facility] [place] Systolic (mm Hg) 2019-01-27 17:00:00 Estrada rial [place] Diastolic (mm Hg) 2019-01-27 17:00:00 Mem orial [place] Temperature Oral (F) 2019-01-27 17:00:00 98.5 F [facility] [place] Heart Rate 2019-01-27 17:00:00 [facility] [place] Respitory Rate 2019-01-27 [facility] Height 2019-01-22 14:35:00 157.48 cm [facility] BMI Calculated 2019-01-22 14:35:00 Memori al [place] Weight 2019-01-22 14:35:00 [facility] [place] Weight 2019-01-22 04:34:00 [facility] Procedures Procedure Date / Time Performing Clinician Source Performed URINALYSIS 2021-09-10 06:03:00 Neena Bradford [facility] URINE DRUG (IMMUNOASSAY) 2021-09-10 06:03:00 Neena Bradford [facility] SCREEN W/O REFLEX XR CHEST 1 VW 2021-09-10 04:57:30 Neena Bradford [facility] CREATINE KINASE 2021-09-10 04:39:00 Neena Bradford [facility] MAGNESIUM 2021-09-10 04:39:00 Neena Bradford [facility] TROPONIN I 2021-09-10 04:39:00 Neena Bradford [facility] COMP. METABOLIC PANEL 2021-09-10 04:39:00 Neena Bradford [facility] ([id number]) Medical Branch CBC WITH DIFF 2021-09-10 04:39:00 Neena Bradford [facility] PROTHROMBIN TIME / INR 2021-09-10 04:39:00 Neena Bradford [facility] ACTIVATED PARTIAL 2021-09-10 04:39:00 [facility] TH[facility] N-TERMINAL PRO-BNP 2021-09-10 04:39:00 Neena [facility] COVID-19 (ID NOW RAPID 2021-09-10 04:39:00 Neena Bradford [facility] TESTING) Medical Branch TROPONIN I 2021-09-09 21:49:00 Esko [facility] [place] COMP. METABOLIC PANEL 2021-09-09 21:49:00 UdmontLuanne buenrostro [facility] ([id number]) Medical Branch LITHIUM 2021-09-09 21:49:00 Luanne Dumont [facility] CBC WITH DIFF 2021-09-09 21:49:00 Esko [facility] [place] CONSENT/REFUSAL FOR 2021-09-09 19:51:22 Doctor Unassigned, No Un [facility] DIAGNOSIS AND TREATMENT Name Medical Branch URINALYSIS 2020-09-30 13:27:00 Chuy Jackson [facility] ADC,CLC OR LCC ONLY - 2020-09-30 13:27:00 Chuy Jackosn [facility] INFLUENZA A & B DIRECT Medical B ranch ANTIGEN COVID-19 (ID NOW RAPID 2020-09-30 13:27:00 [facility] [place] [facility]) Medical Branch Encounters Start End Encounter Admission Attending Care Care Encounter Source Date/Time Date/Time Type Type Clinicians Facility Department ID 2019-01-22 Inpatient E [facility] [id number] [facility] W 04:39:00 2021-09-09 2021-09-10 Emergency X DENIA BRADFORD ERT [id number] Univers 22:20:00 03:02:00 NEENA [facility] 2021-09-09 2021-09-10 Emergency DENIA Bradford [id number] Univers 22:20:00 03:02:00 Neena WALSH [id number] i ty of [place] 4.2.7.2.686 [facility] [id number] [address] 2021-09-09 2021-09-10 Emergency Lise BRADFORD [facility] ERT [id number] Univers 22:20:00 03:02:00 NEENA tubbs [facility] 2021-09-09 2021-09-09 Emergency Julia [facility] [id number] Univers 14:07:00 17:35:00 Luanne GOVEACHEN 350.1.13.10 i ty of [place] 4.2.7.2.686 [facility] [id number] [address] 2021-09-09 2021-09-09 Orders Doctor BELKYS [id number] Univers 00:00:00 00:00:00 Only Unassigned, LANA 350.1.13.10 ity of [facility] 4.2.7.2.686 [facility] [id number] [place] [address] Branch 2020-09-30 2020-09-30 Emergency [facility] [id number] Univers 07:22:00 08:18:00 Chuy Tony 350.1.13.10 i ty of [place] 4.2.7.2.686 [facility] [id number] [address] 2020-09-30 2020-09-30 Emergency [facility] [id number] 07:22:00 08:18:00 Chuy Goveaton 350.1.13.10 [place] 4.2.7.2.686 [place] [id number] 2020-09-30 2020-09-30 Emergency [facility] [id number] Univers 07:22:00 07:22:00 CHUY tubbs [facility] 2020-04-05 2020-04-05 Outpatient [facility] 796 [id number] [facility] 05:44:00 05:44:00 _[facility] [id number] Family Practic e 2020-04-05 2020-04-05 Outpatient Humaira-Alekso VFP VFP [id number] [facility] 05:44:00 05:44:00 _A_AH 06853 Family Practic e 2020-04-05 2020-04-05 Outpatient Humaira-Mbmanojo VFP VFP [id number] [facility] 05:44:00 05:44:00 _A_AH 94705 Family Practic e 2020-04-05 2020-04-05 Outpatient Humaira-Mbmanojo VFP VFP [address] [place] [address] 05:44:00 05:44:00 _A_AH 00624 Family Practic e 2020-03-04 2020-03-14 Inpatient 3 [place], [facility] PSY [id number] 15:38:00 15:25:00 [facility] 2019-12-13 2019-12-13 Outpatient Humaira-Alekso VFP VFP [address] [place] [address] 07:22:00 07:22:00 _A_AH 61667 Family Practic e 2019-01-22 2019-01-28 [facility]patient [facility] [id number] Memoria 04:33:00 04:40:00 r [place]on[place] 00 l [facility] 2018-02-21 2018-02-20 [id number] 14:48:00 13:18:00 [facility] Results Test Description Test Time Test Comments Results Result Comments Source TROPONIN I 2021-09-10 05:26:53 Test Item Value Reference Range Interpretation Comme nts TROPONIN I (test code = 0.003 ng/mL See_Comment [Au tomated message] The [id number]) system which ge nerated this result tra [...] biotin. Lab Interpretation Normal (test code = 75118-6) [id number] 05:24:16 Test Item Value Reference Range Interpretation Comments NT-proBNP (test code 35 pg/mL See_Comment [Autom ated = 4230570969) message] The system which generated this result transmitted reference range : <=125. The reference range was not used to interpret this result as normal/abnormal . PERRY (test code = PERRY) Biotin has been reported to cause a negative bias, interpret results relative to patient's use of biotin. Lab Interpretation Normal (test code = 73993-7) [facility]21[facility] 05:16:51 Test Item Value Reference Range Interpretation Comments MAGNESIUM (test code = 5652905751) 1.8 mg/dL 1.7-2.4 Lab Interpretation (test code = Normal 12381-5) [facility] ([id number])2021-09-10 05:16:31 Test Item Value Reference Range Interpretation Comments NA (test code = 139 mmol/L 135-145 6867530136) K (test code = 4.0 mmol/L 3.5-5.0 7015826496) CL (test code = 108 mmol/L 98-108 8197164669) CO2 TOTAL (test code 25 mmol/L 23-31 = 2423032118) AGAP (test code = 2-16 8506794406) BUN (test code = 14 mg/dL 7-23 8205661644) GLUCOSE (test code = 88 mg/dL 70-110 1936963311) CREATININE (test code 0.89 mg/dL 0.50-1.04 = 1151446338) TOTAL BILI (test code 0.5 mg/dL 0.1-1.1 = 0476517017) CALCIUM (test code = 10.3 mg/dL 8.6-10.6 3354011116) T PROTEIN (test code 6.9 g/dL 6.3-8.2 = 4021022127) ALBUMIN (test code = 4.3 g/dL 3.5-5.0 2456221857) ALK PHOS (test code = 72 U/L 34-122 2247634432) ALTv (test code = 17 U/L 5-35 2-6) AST(SGOT) (test code 29 U/L 13-40 = 0160773375) eGFR (test code = mL/min/1.73m2 9485794364) PERRY (test code = PERRY) Association of [...] or urine or abnormalities in imaging tests). [facility] [id number] 05:16:16 Test Item Value Reference Range Interpretation Comments CK (test code = 5448110389) 267 U/L 33-194 H Lab Interpretation (test code = Abnormal 19593-4) [facility] THRMPLAS [id number] 05:05:32 Test Item Value Reference Range Interpretation Comments APTT Patient (test See_Comment [Automat ed code = 3173-2) message] The system which generated this result transmitted reference range : 23 - 38 Seconds . The reference range was not used to interpr et this result as normal/abnormal . PERRY (test code = PERRY) The [facility] patient population mean normal value for aPTT is 30 seconds. Lab Interpretation Normal (test code = 30457-0) [facility] / [id number] 05:03:30 Test Item Value Reference Range Interpretation [...] tions. Lab Interpretation (test Normal code = 81047-3) General acute hospital WITH [id number] 04:57:13 Test Item Value Reference Range Interpretation Comments WBC (test code = See_Comment [Automated 5290-2) message] The sy stem which generated this result transmitted reference range : 4.30 - 11.10 10*3/?L. The reference range was not used to interpret this result as normal/abnormal . RBC (test code = See_Comment [Automated 309-8) message] The sy stem which generated this [...] RDW-SD (test code = 41.2 fL 39.0-49.9 47183-2) RDW-CV (test code = 13.0 % 12.0-15.5 788-0) PLT (test code = See_Comment H [Automated 777-3) message] The sy stem which generated this result transmitted reference range : 166 - 358 10*3/ ?L. The reference r katie was not used to interpret this result as normal/abnormal . MPV (test code = 9.6 fL 9.5-12.9 02906-0) NRBC/100 WBC (test See_Comment [Automat ed code = 8052253966) message] The system which generated this result transmitted reference range : 0.0 - 10.0 /100 WBCs. The refer ence range was not u sed to interpret th is result as normal/abnormal . NRBC x10^3 (test code <0.01 See_Comment [Auto mated = 5048303312) message] The s ystem which generated this result transmitted reference range : 10*3/?L. The reference range was not used to interpret this result as normal/abnormal . GRAN MAT (NEUT) % 61.9 % (test code = 770-8) IMM GRAN % (test code 0.30 % = 4450675554) LYMPH % (test code = 26.0 % 736-9) MONO % (test code = 9.5 % 5905-5) EOS % (test code = 1.6 % 713-8) BASO % (test code = 0.7 % 706-2) GRAN MAT x10^3(ANC) 5.91 10*3/uL 1.88-7.09 (test code = 9295396075) IMM GRAN x10^3 (test 0.03 10*3/uL 0.00-0.06 code = 9238045240) LYMPH x10^3 (test code 2.48 10*3/uL 1.32-3.29 = 731-0) MONO x10^3 (test code 0.91 10*3/uL 0.33-0.92 = 742-7) EOS x10^3 (test code = 0.15 10*3/uL 0.03-0.39 711-2) BASO x10^3 (test code 0.07 10*3/uL 0.01-0.07 = 704-7) Lab Interpretation Abnormal (test code = 86391-7) [facility] [id number] 22:24:55 Test Item Value Reference Interpretation Comments Range TROPONIN I (test 0.002 ng/mL See_Comment [Automated code = 0249021773) message] The system which generated this result [...] biotin. Lab Interpretation Normal (test code = 94014-2) [facility]21-[facility] 22:24:34 Test Item Value Reference Range Interpretation Comments Higgins (test code = <0.2 0.6-1.2 L 1426309224) PERRY (test code = PERRY) Toxic Range: ? Greater than 1.2 mmol/L Lab Interpretation (test Abnormal code = 71584-4) [facility] PANEL ([id number])2021-09-09 22:13:54 Test Item Value Reference Range Interpretation Comments NA (test code = 139 mmol/L 135-145 7673050459) K (test code = 4.0 mmol/L 3.5-5.0 9097496368) CL (test code = 105 mmol/L 98-108 2954627491) CO2 TOTAL (test code 26 mmol/L 23-31 = 3866346462) AGAP (test code = 2-16 0494473633) BUN (test code = 11 mg/dL 7-23 3737993749) GLUCOSE (test code = 109 mg/dL 70-110 8900497762) CREATININE (test code 0.71 mg/dL 0.50-1.04 = 9698028900) TOTAL BILI (test code 0.6 mg/dL 0.1-1.1 = 0190728050) CALCIUM (test code = 10.4 mg/dL 8.6-10.6 2502485684) T PROTEIN (test code 7.6 g/dL 6.3-8.2 = 9216725236) ALBUMIN (test code = 4.7 g/dL 3.5-5.0 5125573696) ALK PHOS (test code = 78 U/L 34-122 0920740527) ALTv (test code = 19 U/L 5-35 1742-6) AST(SGOT) (test code 28 U/L 13-40 = 5412296980) eGFR (test code = mL/min/1.73m2 2332829876) PERRY (test code = PERRY) Association of [...] in imaging tests). General acute hospital WITH [id number] 22:03:32 Test Item Value Reference Range Interpretation [...] RDW-SD (test code = 40.2 fL 39.0-49.9 11312-9) RDW-CV (test code = 12.9 % 12.0-15.5 788-0) PLT (test code = See_Comment H [Automated 777-3) message] The sy stem which generated this result transmitted reference range : 166 - 358 10*3/ ?L. The reference r katie was not used to interpret this result as normal/abnormal . MPV (test code = 9.4 fL 9.5-12.9 L 99760-7) NRBC/100 WBC (test See_Comment [Automat ed code = 2167850202) message] The system which generated this result transmitted reference range : 0.0 - 10.0 /100 WBCs. The refer ence range was not u sed to interpret th is result as normal/abnormal . NRBC x10^3 (test code <0.01 See_Comment [Auto mated = 2611920007) message] The s ystem which generated this result transmitted reference range : 10*3/?L. The reference range was not used to interpret this result as normal/abnormal . GRAN MAT (NEUT) % 67.1 % (test code = 770-8) IMM GRAN % (test code 1.00 % = 2206555652) LYMPH % (test code = 21.4 % 736-9) MONO % (test code = 7.9 % 5905-5) EOS % (test code = 1.8 % 713-8) BASO % (test code = 0.8 % 706-2) GRAN MAT x10^3(ANC) 7.35 10*3/uL 1.88-7.09 H (test code = 4837059683) IMM GRAN x10^3 (test 0.11 10*3/uL 0.00-0.06 H code = 9095277244) LYMPH x10^3 (test code 2.34 10*3/uL 1.32-3.29 = 731-0) MONO x10^3 (test code 0.86 10*3/uL 0.33-0.92 = 742-7) EOS x10^3 (test code = 0.20 10*3/uL 0.03-0.39 711-2) BASO x10^3 (test code 0.09 10*3/uL 0.01-0.07 H = 704-7) Lab Interpretation Abnormal (test code = 66563-3) [facility] A & B DIRECT UNHAGPK6480-51-28 14:04:00 Test Item Value Reference Range Interpretation Comments Influenza A (test code = 03016-4) Negative Negative Influenza B (test code = 18189-0) Negative Negative Lab Interpretation (test code = Normal 81533-7) [facility]ID [facility])2020-09-30 14:03:00 Test Item Value Reference Range Interpretation Comments SARS-CoV-2 Rapid ID NOW Not Detected Not Detected (test code = 26011-0) PERRY (test code = PERRY) ID NOW COVID-19 Assay is an isothermal nucleic acid amplification test intended for the qualitative detection of nucleic acid from SARS-CoV-2 viral RNA 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 It is used under Emergency [...] indicated. Lab Interpretation Normal (test code = 86809-1) [facility] 13[facility]55:00 Test Item Value Reference Range Interpretation Comments APPEARANCE (test code = Hazy Clear A 8878753121) COLOR (test code = Yellow Yellow 2660987307) PH (test code = 4.8-8.0 4435104796) SP GRAVITY (test code = 1.003-1.030 2301474937) GLU U QUAL (test code = Normal Normal 2771546944) BLOOD (test code = Negative Negative 1008420297) KETONES (test code = 5 mg/dL Negative A 1595880638) PROTEIN (test code = Negative Negative 2887-8) UROBILIN (test code = 2.0 mg/dL Normal A 1125330372) BILIRUBIN (test code = Negative Negative 6654283955) NITRITE (test code = Negative Negative 8049958410) LEUK ROZINA (test code = 25/uL Negative A 1337864291) RBC/HPF (test code = See_Comment [Autom ated message] 3380881679) The system ZetrOZ generated this result transmit ngozi reference range : 0 - 3 HPF. The refe rence range was not u sed to interpret th is result as normal/abnormal . WBC/HPF (test code = See_Comment [Autom ated message] 6791712057) The system ZetrOZ generated this result transmit ngozi reference range : 0 - 5 HPF. The refe rence range was not u sed to interpret th is result as normal/abnormal . BACTERIA (test code = Few Negative A 2250749773) MUCOUS (test code = Slight Negative LPF A 0979225646) SQ EPITH (test code = HPF 4216100646) Lab Interpretation (test Abnormal code = 77776-5) [facility] Tupmtkwbdqt9712-86-97 16:42:24 Test Item Value Reference Range Interpretation [...] = 10-24-2020 N Expiration Dt) Thyroid Stimulating Lyjfmmp9524-30-85 08:35:16 Test Item Value Reference Range Interpretation Comments TSH (test code = TSH) 1.170 mIU/mL 0.270-4.200 Lipid Bajjc1975-77-89 08:21:19 Test Item Value Reference Range Interpretation [...] calculation is LDL/HDL Ratio=L DL Calc/HDL Chol YBNSSBXDJCWI7732-91-40 08:24:008.6[facility] FiosecjDJEQMJOMQZSU1007-38-02 08:24:04024Gsvwlzcc XtvhskyHUJZHJBCITNI3713-35-84 08:24:0027[facility] YMMBPXRAPWHK6781-00-27 08:24:67104Skxbisir WebczgtXBBFZYMJJKLM6642-94-19 08:24:003.6[facility] JkhznqeMXHIUCQOEMWB1970 08:24:000.70[facility] HTTSSESZCBFZ0767-56-90 08:24:008.4[facility] OmvfizcXWURPIJJDPQF4494-67-08 08:24:89642Fwmwowkx AijjamyRLYYTOJBECCH6574-73-83 08:24:0086[facility] YZFBSEQHJBAK2985-83-41 08:24:006[facility] KgoyedoERQPGPXDGT8912-07-49 08:24:00 11.6[facility] AoeuarpCNFTBHYEKS7365-85-28 08:24:003.78[facility]annHEMATOLOGY 2019-01-26 08:24:0013.3[facility] YzpguurGEOUEXNCUY2895-63-95 08:24:0034.0[facility] FandgkhAJHTUXOKFX0774-99-34 08:24:006.3[facility] UyyubzfFVJHPGEDQD6314-19-81 08:24:00 Test Item Value Reference Range Interpretation Comments MCH (test code = MCH) 30.7 pg 27.0-31.0 [facility] AsgvtgeQOECKULEJF7608-95-53 08:24:0090.3[facility]annHEMATOLOGY 2019-01-26 08:24:0034.2[facility] TwxwbibGFRUVWVIUD8559-89-60 08:24:37416Fevpphit JpfjaknVTBYGQKESU0154-75-30 08:24:007.5[facility] QvbqrxxJZEUUIWEGPEW5908-21-27 08:24:008.6[facility] IhfmbtdYXMAZEHGKTHK9649-02-34 08:24:01996Epowqvub Y[facility]is XXYTVTJRHDKQ8298-28-36 08:24:0027[facility] CdyjacuHDMWPSIVAAHB2851-24-26 08:24:00 139[facility] LtuybhwVBPSPYGIZBRJ6846-06-83 08:24:003.6[facility] [place] QEXHKWRUCAPA4599-53-73 08:24:000.70[facility] VidmzndTFHWJPDQVHMH1654-70-76 08:24:008.4[facility] HkjabahTZYHRMFPESER7888-91-31 08:24:75006Vcwylxqw [facility] EIEPNRJDMNEM0822-55-20 08:24:0086[facility] XxqqpnfQUFACHMZYAPJ8777-45-59 08:24:00 6[facility] PvjbxjbVDGJLEBCKZ6833-56-69 08:24:0011.6[facility]annHEMATOLOGY 2019-01-26 08:24:003.78[facility] GjdqtjoWDTHFWCRKW4282-18-10 08:24:0013.3[facility] GsxycczLQRTRDCLSY9016-95-91 08:24:0034.0[facility] IkbxnhuWEKVJDHVJH3563-75-84 08:24:006.3[facility] NhcylskFZTDHXXBTL9716-09-22 08:24:00 Test Item Value Reference Range Interpretation Comments MCH (test code = MCH) 30.7 pg 27.0-31.0 [facility] EopnfdbNFIJISEQHK4754-01-65 08:24:0090.3[facility]annHEMATOLOGY 2019-01-26 08:24:0034.2[facility] RdzeytwKIBZGKIRHL7883-30-23 08:24:11759Rahykali DfzntoiKHYRFDQYCM5292-65-76 08:24:007.5[facility] HermannCHEM TRRVQ9702-15-84 09:14:86911Tqthagbt HermannCHEM WEZTU4652-45-40 09:14:008.5[facility]annCHEM PXNEX0533-33-00 09:14:0013.3[facility]annCHEM WETTV6190-95-03 09:14:0024 [facility]annCHE[facility] MLVQL0969-72-25 09:14:54726Btzzqkht HermannCHEM PANEL 2019-01-25 09:14:0081[facility]annCHEM BNADO6692-01-10 09:14:002[facility]annCHEM WELYF1109-16-19 09:14:003.3[facility]annCHEM QDQWK2169-83-26 09:14:000.60[facility]annCHEM QKBWE6810-57-82 09:14:50731Butqvesv HermannCHEM GAFKC9339-95-85 09:14:02758Aqngwrki HermannCHEM KSKGZ6058-04-40 09:14:008.5 [facility]annCHE[facility] THNPW7873-94-22 09:14:0013.3[facility]annCHEM PANEL 2019-01-25 09:14:0024[facility]annCHEM EYFXU9994-19-42 09:14:54241Jonmtmbh HermannCHEM IMQBP2847-30-24 09:14:0081[facility]annCHEM NNPPY7729-55-71 09:14:002[facility]annCHEM WOTJG1889-13-22 09:14:003.3[facility]annCHEM ZIKAK4927-93-90 09:14:000.60[facility]annCHEM ZKWDX9712-35-36 09:14:50316 [facility]annMOLECULAR RQCGEBEYZS5584-18-04 16:22:00Negative (01/23/19 11:22 AM)[facility] HermannMOLECULAR XBCUJUGFSC6849-45-73 16:22:00Negative (01/23/19 11:22 AM)[facility]annCHEM KQSQZ8249-52-04 15:42:002.76[facility]annCHEM PANEL 2019-01-23 15:42:002.76[facility]annCHEM LZZZZ4346-46-53 12:32:000.9[facility]annCHEM GCOUC9862-41-92 12:32:000.9[facility]annCHEM QNTES9382-62-02 10:50:002.0[facility]annCHEM TYWJH8108-63-82 10:50:96220Osbzryfu HermannCHEM HCVMK8337-87-73 10:50:0023[facility]annCHEM SQIYA0561-86-33 10:50:89170 [facility]annCHEM BGMHA1655-94-54 10:50:003.1[facility]annCHEM PANEL 2019-01-23 10:50:81269Hpnmtlog HermannCHEM LYSAB0299-22-32 10:50:005[facility]annCHEM HTWHT5978-99-75 10:50:000.50[facility]annCHEM QFQMY1074-17-72 10:50:007.8[facility]annCHEM PCPLG5454-00-95 10:50:0083[facility]annCHEM OXLKX5466-19-24 10:50:0010.1[facility] MjalasbSJQFSCVJZZ5965-53-27 10:50:000.2 [facility] SnwayqxUYBBJVMWFP9888-83-41 10:50:000.8[facility] HermannHEMATOLOGY 2019-01-23 10:50:005.5[facility] TrngipbBKRXJXBKDN1195-09-47 10:50:002.2[facility] RdmslkoSWHNKYHJDB6479-14-33 10:50:000.1[facility] EucxvjaWXUGAASYGY7990-07-96 10:50:0063.6[facility] UqrhryyYOUAMNOSUS3002-58-49 10:50:008.9[facility] ISQISDIOBO1923-33-01 10:50:002.3[facility] PzwqpdzNFXCNEKWMM3455-95-88 10:50:00 Normal (01/23/19 5:50 AM)[facility] KoxpoaaJIBQHBFRVX3184-23-35 10:50:00Normal (01/23/19 5:50 AM)[facility] SwumphnUJZGCHRMEB1760-23-67 10:50:0025.1[facility] NcbgjfyBJXOOROZBO6710-46-21 10:50:0013.1[facility] LqrlpwaILJSJOURUN3905-19-59 10:50:17671Ydyutztm HgkeiweVGDDEDHNEF0740-34-77 10:50:007.7[facility] OKWECWVROW5968-27-93 10:50:008.6[facility] YeshqgwWAXCOUNNEC6355-87-91 10:50:00 10.0[facility] BrbbvhtKAMFSYGWQM2051-38-40 10:50:0034.6[facility] HermannHEMATOLOGY 2019-01-23 10:50:0028.7[facility] QxgospbKKDUXYUUJA9033-75-31 10:50:0087.8[facility] EbcayarBLZTRNEHJA3303-21-30 10:50:00 Test Item Value Reference Range Interpretation Comments MCH (test code = MCH) 30.4 pg 27.0-31.0 [facility] KkxnvcaSDPBWJMRLU5097-03-22 10:50:003.27[facility] HermannHEMATOLOGY 2019-01-23 10:50:68347Vxrqjlgo TwilbixHKYYAOHEAG6322-65-41 10:50:007.7[facility] UldsrdzOZLSWTRDKG6424-71-19 10:50:008.6[facility] WwweqzvOIIGADHXPM4451-92-11 10:50:0010.0[facility] TyokvsdUDLIOZLBNW4016-30-39 10:50:0034.6[facility] CGTXEPPYTN6790-02-55 10:50:0028.7[facility] WlbfvfxZLRCMOFDVA2818-10-77 10:50:00 87.8[facility] AabomreZMAYQGRKLI0037-24-59 10:50:00 Test Item Value Reference Range Interpretation Comments MCH (test code = MCH) 30.4 pg 27.0-31.0 [facility]annCHEM CDDSF8061-70-69 10:50:002.0[facility]annHEMATOLOGY 2019-01-23 10:50:003.27[facility] HermannCHEM CSFZP9273-75-60 10:50:34787Gntfawfz HermannCHEM QCFTE1751-98-46 10:50:0023[facility]annCHEM JZTXR9322-60-25 10:50:43921Xwkbwzxe HermannCHEM CYIVS5555-05-83 10:50:003.1[facility] HermannCHEM EVDYD1360-38-85 10:50:81179Cepwkyhm HermannCHEM NIWYS3950-93-87 10:50:005 [facility]annCHEM VASTA9092-69-98 10:50:000.50[facility]annCHEM PANEL 2019-01-23 10:50:007.8[facility] HermannCHEM EWHFM1049-10-84 10:50:0083[facility]annCHEM XBNOG2667-10-17 10:50:0010.1[facility] VaajswfQGPDHFNTQE5379-55-96 10:50:000.2[facility] WexehtlWIAXIXMOQT0115-17-42 10:50:000.8[facility] [place] TWQIGDOUVU7691-32-09 10:50:005.5[facility] QudpopfKIVJAJSDZT2820-89-08 10:50:002.2 [facility] ObbeghiZHGEHCSNQG9540-35-04 10:50:000.1[facility] HermannHEMATOLOGY 2019-01-23 10:50:0063.6[facility] VbqtzfxRPFGORJQOA4130-22-53 10:50:008.9[facility] HoohwnnCGBYRFCRRG0233-76-56 10:50:002.3[facility] MknjcjzSBJGQNHJFL0224-72-80 10:50:00Normal (01/23/19 5:50 AM)[facility] LontbyhOWUKAGRLPN5590-52-28 10:50:00 Normal (01/23/19 5:50 AM)[facility] QnbxutdOBASZSUFCJ8026-47-01 10:50:0025.1[facility] WbsvejuRYIKNVPZKI7193-87-69 10:50:0013.1[facility] HermannCHEM SYUUS8843-02-94 11:32:002.4[facility] HermannCHEM IQKBT1146-82-57 11:32:002.4[facility] HermannCHEM NCIIB3396-83-79 09:04:003.0[facility] HermannCHEM YRIIN4115-26-94 09:04:003.0 [facility]annUR[facility] AND ATHNZ9735-15-57 07:14:00 Test Item Value Reference Range Interpretation Comments UA Spec Grav (test code = UA Spec 1.014 1 Grav) [facility] OIKFL1264-34-01 07:14:00 Test Item Value Reference Range Interpretation Comments UA pH (test code = UA pH) 6.0 1 5.0-8.0 [facility] NZHTB1541-70-46 07:14:00Negative (01/22/19 2:14 AM) [facility] UYJMG5952-16-03 07:14:00Negative *NA*(01/22/19 2:14 AM) [facility] AUMXJ1223-11-07 07:14:00Negative *NA*(01/22/19 2:14 AM) [facility] HGXHK9340-45-97 07:14:00Negative *NA*(01/22/19 2:14 AM) [facility] QZQGJ6321-36-51 07:14:00Negative (01/22/19 2:14 AM) [facility] FLTMI0278-26-26 07:14:00Negative (01/22/19 2:14 AM) [facility] HPYMI6562-24-55 07:14:00Negative (01/22/19 2:14 AM) [facility] QRDDN5680-88-31 07:14:00<1[facility] TREQG7903-34-05 07:14:0025[facility]annUR[facility] ROBRR9579-80-31 07:14:002 [facility] UNGGP2905-23-72 07:14:00Light Yellow *NA*(01/22/19 2:14 AM)[facility] JTPAV5968-84-48 07:14:00Clear (01/22/19 2:14 AM) [facility] DRRIQ1419-86-95 07:14:00 Test Item Value Reference Range Interpretation Comments UA Spec Grav (test code = UA Spec 1.014 1 Grav) [facility] IERLW3782-35-63 07:14:00 Test Item Value Reference Range Interpretation Comments UA pH (test code = UA pH) 6.0 1 5.0-8.0 [facility] RBWCY2103-54-46 07:14:00Negative (01/22/19 2:14 AM) [facility] PIDAB6210-16-05 07:14:00Negative *NA*(01/22/19 2:14 AM) [facility] HUVVO3639-56-25 07:14:00Negative *NA*(01/22/19 2:14 AM) [facility] QVHGQ4607-19-87 07:14:00Negative *NA*(01/22/19 2:14 AM) [facility] BLYVX2420-38-96 07:14:00Negative (01/22/19 2:14 AM) [facility] IGHUN5401-71-64 07:14:00Negative (01/22/19 2:14 AM) [facility] DLXDP4348-73-80 07:14:00Negative (01/22/19 2:14 AM) [facility] SGEPZ0180-09-81 07:14:00<1[facility] JJKPD3523-38-64 07:14:0025[facility] ANLJP3519-56-66 07:14:002 [facility] JBQCM1016-26-08 07:14:00Light Yellow *NA*(01/22/19 2:14 AM)[facility] SXXUQ7817-39-61 07:14:00Clear (01/22/19 2:14 AM) [facility] GpjazgyUIVDJ5555-92-75 05:16:000.90[facility] AdbauboTSCRL7015-79-31 05:16:000.90[facility] BnmscglJLHROZENFY6147-32-85 05:01:54702Lmpyhhwd [place] DFRCTNATZU4663-07-15 05:01:007.3[facility] WvcqqzhILLKUVNSEE5924-49-46 05:01:00 14.0[facility] FksbgqrVVTJSYLPUY3180-42-63 05:01:004.85[facility] HermannHEMATOLOGY 2019-01-22 05:01:0042.7[facility] NyhuaffEMRDODWBDT8923-34-17 05:01:00 Test Item Value Reference Range Interpretation Comments MCH (test code = MCH) 29.0 pg 27.0-31.0 [facility] DpnhrflYPRSXHXRXQ2812-67-69 05:01:0088.2[facility] HermannHEMATOLOGY 2019-01-22 05:01:00 Test Item Value Reference Range Interpretation Comments INR (test code = INR) 0.96 1 0.85-1.17 [facility] RnxzpkcMRBMMBCYBO0921-17-62 05:01:00 Test Item Value Reference Range Interpretation Comments PT (test code = PT) 12.6 s 12.0-14.7 [facility] CnuwbfbNAPLXSBURA6653-58-25 05:01:00 Test Item Value Reference Range Interpretation Comments PTT (test code = PTT) 25.9 s 22.9-35.8 [facility] HermannBLOOD BANK GBHIMTJ3060-23-97 05:01:00Negative (01/22/19 12:01 AM) [facility]annCARDIAC IXGLHFP7204-53-95 05:01:00<0.02[facility] [place] CARDIAC XYTNPZA1542-37-91 05:01:0049[facility] HermannCHEM HITYV9120-58-37 05:01:000.6[facility] HermannCHEM VYBQS2655-42-80 05:01:97362Dlnilbyf HermannCHEM FCSMO7996-01-06 05:01:004.0[facility] HermannCHEM FKBHQ5802-04-26 05:01:0017 [facility]annCHEM QRAFJ3872-02-81 05:01:0025[facility] HermannCHEM PANEL 2019-01-22 05:01:008.1[facility] HermannCHEM SGGOA4963-91-79 05:01:00 Test Item Value Reference Range Interpretation Comments B/C Ratio (test code = B/C Ratio) 20 1 6-25 [facility]annCHEM IIPZQ1711-55-74 05:01:00 Test Item Value Reference Range Interpretation Comments A/G Ratio (test code = A/G Ratio) 1.0 1 0.7-1.6 [facility]annCHEM ECYMU7616-32-27 05:01:004.1[facility] HermannCHEM PANEL 2019-01-22 05:01:006.90[facility] UczfeluUPGPYYBODFYXQ7147-68-27 05:01:00Negative *NA*(01/22/19 12:01 AM)[facility] UufujnvIYIDVNDYXJ1971-34-95 05:01:000.1[facility] YpomrtpFNUBHWZCIX1355-92-15 05:01:000.7[facility] AzdsqxhCJIWDCZEXM7884-56-00 05:01:000.0[facility] StnomqpGGXPPSJFOF0782-75-05 05:01:000.0[facility] FCFMGJHIEW1350-51-77 05:01:000.9[facility] VzdmofbXUXSRFNLKJ6608-55-54 05:01:008.6 [facility] EowvjzsFQJNTGFMFX4098-08-01 05:01:000.6[facility] HermannHEMATOLOGY 2019-01-22 05:01:0086.5[facility] IcouuefZGYQJFBXID9868-31-87 05:01:005.7[facility] SjkqrhaAHIUJFNOEY8415-95-19 05:01:006.9[facility] JmkzbpjSDSFIJGGGA0867-90-33 05:01:009.9[facility] YhjctnuGUUINAHHMY7001-56-47 05:01:0032.8[facility] GDTQKGLBSG1660-82-98 05:01:0013.6[facility] DtgdfnsFHYZKNNRKJ1257-37-67 05:01:00 443[facility] FyyyircLNJHASEBKU0348-01-05 05:01:007.3[facility] HermannHEMATOLOGY 2019-01-22 05:01:0014.0[facility] MnjmwwiNDSUHOXFBJ3858-19-51 05:01:004.85[facility] XvlwsenLHAQDRZQTI4614-87-37 05:01:0042.7[facility] TsoepzrHKDGEYLSYX8160-28-40 05:01:00 Test Item Value Reference Range Interpretation Comments MCH (test code = MCH) 29.0 pg 27.0-31.0 [facility] QdmgchqQEWGYIGQVP1153-70-25 05:01:0088.2[facility] HermannHEMATOLOGY 2019-01-22 05:01:00 Test Item Value Reference Range Interpretation Comments INR (test code = INR) 0.96 1 0.85-1.17 [facility]AnvaahcKSTRCZWEJP6812-50-27 05:01:00 Test Item Value Reference Range Interpretation Comments PT (test code = PT) 12.6 s 12.0-14.7 [facility] QicunzuYXFIQHRHHH4564-69-13 05:01:00 Test Item Value Reference Range Interpretation Comments PTT (test code = PTT) 25.9 s 22.9-35.8 [facility] BANK UWGBZEB3193-41-92 05:01:00Negative (01/22/19 12:01 AM) [facility] ETWKQPF0537-47-39 05:01:00<0.02[facility] CARDIAC EERLCYV7998-75-14 05:01:0049[facility] HermannCHEM CSSSJ1157-28-88 05:01:000.6[facility] HermannCHEM OKGPR2284-95-24 05:01:69086Qtcrmbbp HermannCHEM TFADT9770-75-03 05:01:004.0[facility] HermannCHEM TNBQV0204-67-63 05:01:0017 [facility]annCHEM YERUS4252-22-39 05:01:0025[facility] HermannCHEM PANEL 2019-01-22 05:01:008.1[facility] HermannCHEM CMGLS8209-48-71 05:01:00 Test Item Value Reference Range Interpretation Comments B/C Ratio (test code = B/C Ratio) 20 1 6-25 [facility] HermannCHEM YNCUB2487-01-45 05:01:00 Test Item Value Reference Range Interpretation Comments A/G Ratio (test code = A/G Ratio) 1.0 1 0.7-1.6 [facility]annCHEM AHNHJ9204-93-00 05:01:004.1[facility] HermannCHEM PANEL 2019-01-22 05:01:006.90[facility] RkaehisLTJOZQJPRVZXQ2011-52-21 05:01:00Negative *NA*(01/22/19 12:01 AM)[facility] AwuqzunZDZSVBBJJY9057-29-79 05:01:000.1[facility] FiawwbkLVAIUVBFCT3133-85-77 05:01:000.7[facility] ZnmzonpOFBYVOAMND3491-96-35 05:01:000.0[facility] RftruvlXMMWZDMEEB3298-01-10 05:01:000.0[facility] OGRABGTTTL3889-26-36 05:01:000.9[facility] TmwwldtEJMGHSPNHO0054-08-24 05:01:008.6 [facility] JqzfkemXSWOYQXSEJ7225-74-49 05:01:000.6[facility] HermannHEMATOLOGY 2019-01-22 05:01:0086.5[facility] QkzxabcHQILNUFYVC3495-22-36 05:01:005.7[facility] TumwerkZASFIOZHHP7881-30-76 05:01:006.9[facility] DmfunpwYWONDVQMNP5274-87-11 05:01:009.9[facility] GefpemvDKHSPISGMR9227-61-87 05:01:0032.8[facility] [place] TFRODINRWU9326-35-60 05:01:0013.6[facility] JdwwkwtNVA0W4798-81-04 14:36:00 Test Item Value Reference Range Interpretation [...] 0.00-0.01 N code = ETOHU) Comprehensive Metabolic Iurkx9778-07-21 14:36:00 Test Item Value Reference Range Interpretation [...] the National [employer],http ://nkd ep.nih.gov Urinalysis Jkjjttum9707-41-18 14:32:00 Test Item Value Reference Range Interpretation Comments Color (test code = COLOR) Yellow Yellow,Straw,Pl N yellow Clarity (test code = Clear Clear N CLAR) Specific [place] (test 1.024 1.001-1.035 N code = SPGR) [...] code = Few /HPF BACT) CBC with Mqlxpzfairkd0417-28-09 14:21:00 Test Item Value Reference Range Interpretation [...] code = ALYMPH) 3.0 K/cumm 0.5-4.6 N [place] Abs (test code = AMONO) 0.5 K/cumm 0.0-1.2 N Eos Abs (test code = AEOS) 0.19 K/cumm 0.00-0.74 N [place] Abs (test code = ABASO) 0.1 K/cumm 0.00-0.21 N
[2021-10-16] MEDS ORDERED: ACETAMIN/CAFFEINE/BUTALB TAB PO ONE (17:28)
[2021-10-16] MEDS ORDERED: ONDANSETRON 4 MG (ODT) TAB ONE (17:29)
--- NOTE | 2021-10-16 18:03 | EDPHYS ---
Physician Documentation [facility] Name: Tiffany Quinn Age: 51 yrs Sex: Female : 1970 Arrival Date: 10/16/2021 Time: 16:28 Bed Waiting Private MD: ED Physician Demarcus Mancilla HPI: 10/17 00:19 This 51 yrs old Female presents to ER via Ambulatory with complaints of Headache, kb Nausea. 00:19 The patient complains of pain to the forehead. The patient describes the headache as kb constant. Onset: The symptoms/episode began/occurred 1.5 week(s) ago. Associated signs and symptoms: Pertinent positives: nausea. Severity of symptoms: At its worst the pain was moderate, in the emergency department the pain is unchanged. Headache History: The patient has had previous headaches and this one is similar to previous episodes. The symptoms are alleviated by nothing. the symptoms are aggravated by nothing. The patient has not experienced similar symptoms in the past. The patient has not recently seen a physician. Pt reports migraine for 1.5 weeks. States she came in to see if she could get a fioricet for the migraine. States this one is similar to previous ones she has had. Also reports nausea that she has medication for, but if she takes it without someone telling her to take it it makes her feel bad. . Historical: - Allergies: 10/16 17:26 Pepcid; ss - PMHx: 17:26 ADD; Anxiety; Bipolar disorder; ss - PSHx: 17:26 Cholecystectomy; hernia repair; ss - Immunization history:: Client reports receiving the 2nd dose of the Covid vaccine. - Social history:: Smoking status: Patient denies any tobacco usage or history of. ROS: 10/17 00:18 Constitutional: Negative for fever, chills, and weight loss. kb Abdomen/GI: Positive for nausea, Negative for abdominal pain, vomiting, diarrhea. Neuro: Positive for headache. All other systems are negative. Exam: 00:18 Constitutional: This is a well developed, well nourished patient who is awake, alert, kb and in no acute distress. Head/Face: Normocephalic, atraumatic. Eyes: Pupils equal round and reactive to light, extra-ocular motions intact. Lids and lashes normal. Conjunctiva and sclera are non-icteric and not injected. Cornea within normal limits. Periorbital areas with no swelling, redness, or edema. ENT: Moist Mucous membranes Respiratory: Respirations even and unlabored. No increased work of breathing. Talking in full sentences Skin: Warm, dry with normal turgor. Normal color. MS/ Extremity: Pulses equal, no cyanosis. Neurovascular intact. Full, normal range of motion. Neuro: Awake and alert, GCS 15, oriented to person, place, time, and situation. Moves all extremities. Normal gait. Psych: Awake, alert, with orientation to person, place and time. Behavior, mood, and affect are within normal limits. Vital Signs: 10/16 17:23 BP 121 / 94; Pulse 100; Resp 20; Temp 97.5(TE); Pulse Ox 100% on R/A; Weight 72.03 kg; ss Height 5 ft. 3 in. (160.02 cm); Pain 10/10; 17:23 Body Mass Index 28.13 (72.03 kg, 160.02 cm) ss [place] Coma Score: 10/17 00:18 Eye Response: spontaneous(4). Verbal Response: oriented(5). Motor Response: obeys kb commands(6). Total: 15. MDM: 10/16 17:26 Patient medically screened. kb 10/17 00:18 Data reviewed: vital signs, nurses notes. Data interpreted: Pulse oximetry: on room air kb is 100 %. Interpretation: normal. Counseling: I had a detailed discussion with the patient and/or guardian regarding: the historical points, exam findings, and any diagnostic results supporting the discharge/admit diagnosis, the need for outpatient follow up, a family practitioner, to return to the emergency department if symptoms worsen or persist or if there are any questions or concerns that arise at home. Administered Medications: 10/16 17:29 Drug: Fioricet - Esgic 325 mg-40 mg-50 mg 1 tab-caps Route: PO; ss 18:41 Follow up: Response: No adverse reaction ss 17:30 Drug: Zofran (Ondansetron) 4 mg Route: PO; ss 18:41 Follow up: Response: No adverse reaction; Medication administered at discharge. ss Disposition Summary: 10/16/21 18:02 Discharge Ordered Location: Home kb Condition: Stable kb Diagnosis - Migraine without aura, not intractable kb Followup: kb - With: Emergency Department - When: As needed - Reason: Worsening of condition Followup: kb - With: Private Physician - When: 2 - 3 days - Reason: Recheck today's complaints, Continuance of care, Re-evaluation by your physician Discharge Instructions: - Discharge Summary Sheet kb - Migraine Headache, Maok-id-Wial kb Forms: - Medication Reconciliation Form kb - Thank You Letter kb - Antibiotic Education kb - Prescription Opioid Use kb Addendum: 10/21/2021 13:10 Co-signature as Attending Physician, Demarcus Mancilla MD I agree with the assessment and k dr plan of care. Signatures: Beatrice Ledezma, [employer]-C [employer]-Ckb Demarcus Mancilla MD MD [facility] Preethi Melendez RN RN ss
--- NOTE | 2021-10-16 18:03 | ER ---
Nurse's Notes [facility] Name: Tiffany Quinn Age: 51 yrs Sex: Female : 1970 Arrival Date: 10/16/2021 Time: 16:28 Bed Waiting Private MD: Diagnosis: Migraine without aura, not intractable Presentation: 10/16 17:23 Chief complaint: Patient states: Headache and nausea x 1.5 weeks. Pt states, "I just ss want to see if I can get a Fioricet or something.". Coronavirus screen: Client denies travel out of the [place] in the last 14 days. Ebola Screen: Patient denies exposure to infectious person. Patient denies travel to an Ebola-affected area in the 21 days before illness onset. Initial Sepsis Screen: Does the patient meet any 2 criteria? No. Patient's initial sepsis screen is negative. Does the patient have a suspected source of infection? No. Patient's initial sepsis screen is negative. Risk Assessment: Do you want to hurt yourself or someone else? Patient reports no desire to harm self or others. Onset of symptoms was October 05, 2021. 17:23 Method Of Arrival: Ambulatory ss 17:23 Acuity: MANUEL 5 ss Historical: - Allergies: 17:26 Pepcid; ss - PMHx: 17:26 ADD; Anxiety; Bipolar disorder; ss - PSHx: 17:26 Cholecystectomy; hernia repair; ss - Immunization history:: Client reports receiving the 2nd dose of the Covid vaccine. - Social history:: Smoking status: Patient denies any tobacco usage or history of. Screenin:26 Abuse screen: Denies threats or abuse. Denies injuries from another. Nutritional ss screening: No deficits noted. Tuberculosis screening: Never had TB. Fall Risk None identified. Assessment: 17:26 General: Appears in no apparent distress. comfortable, Behavior is calm, cooperative. ss Neuro: Level of Consciousness is awake, alert, obeys commands, Oriented to person, place, time, situation. Cardiovascular: Capillary refill < 3 seconds is brisk in bilateral fingers. Respiratory: Airway is patent Respiratory effort is even, unlabored, Respiratory pattern is regular, symmetrical. GI: No signs and/or symptoms were reported involving the gastrointestinal system. Derm: Skin is intact, is healthy with good turgor, Skin is pink, warm \\T\\ dry. normal. Vital Signs: 17:23 BP 121 / 94; Pulse 100; Resp 20; Temp 97.5(TE); Pulse Ox 100% on R/A; Weight 72.03 kg; ss Height 5 ft. 3 in. (160.02 cm); Pain 10/10; 17:23 Body Mass Index 28.13 (72.03 kg, 160.02 cm) ss [place] Coma Score: 10/17 00:18 Eye Response: spontaneous(4). Verbal Response: oriented(5). Motor Response: obeys kb commands(6). Total: 15. ED Course: 10/16 16:28 Patient arrived in ED. mr 17:25 Triage completed. ss 17:26 Beatrice Ledezma FNP-C is [facility]. kb 17:26 Demarcus Mancilla MD is Attending Physician. kb 17:26 Arm band placed on right wrist. ss 17:26 Patient has correct armband on for positive identification. Bed in low position. Call ss light in reach. 17:26 No provider procedures requiring assistance completed. Patient did not have IV access ss during this emergency room visit. Administered Medications: 17:29 Drug: Fioricet - Esgic 325 mg-40 mg-50 mg 1 tab-caps Route: PO; ss 18:41 Follow up: Response: No adverse reaction ss 17:30 Drug: Zofran (Ondansetron) 4 mg Route: PO; ss 18:41 Follow up: Response: No adverse reaction; Medication administered at discharge. ss Outcome: 18:02 Discharge ordered by . kb 18:41 Discharged to home ambulatory. ss 18:41 Condition: good 18:41 Discharge instructions given to patient, Instructed on discharge instructions, follow up and referral plans. Demonstrated understanding of instructions, follow-up care. 18:42 Patient left the ED. ss Signatures: Beatrice Ledezma FNP-C FNP-Kyra Vinita Gan Preethi Melendez, RN RN ss
[2021-10-16 18:47] VITALS: BP 121/94; TEMP 97.5; O2SAT 100
== END 2021-10-16 18:42 | disposition home or self-care (01) ==
LOC: ER 16:25
DX: G43.009 Migraine without aura, not intractable, without status migrainosus (principal); Z88.8 Allergy status to other drugs, medicaments and biological substances
CPT/HCPCS: 99283

== ENCOUNTER 2021-10-17 00:16 | Emergency (ER) | payer OTHER ==
--- OUTSIDE RECORDS SUMMARY | 2021-10-17 00:25 | XMS REPORT | Continuity of Care Document ---
:1970 Author Organization [facility] t Address [address] [place] [address] Care Team Providers Name Role Phone UNKNOWN [...] Date Expiration Date S nasim [place] [place] [id number] 2019 PLUS CLASSIC/VALUE 00:00:00 MEDICAID [facility] [id number] 2015 00:00:00 [place] OF [place] - [id number] 2020 [place] 00:00:00 (MEDICARE REPLACEMENT/ADVANT AGE - HMO) Problems Condition Condition Condition Status Onset Resolution Last Treating Co mments Source Name Details Category Date Date Treatment Clinician Date LOW PB Diagnosis Active 2019-01-22 Mem oria 3 01:52:00 l LOW PB 00:00: [place] 00 Active 01/21/2019 [facility] INFECTIOUS Diagnosis Active 2019-02-06 Memoria GASTROENTE 330 08:58:00 l RITIS AND 00:00: Yon[place] COLITIS INFECTIOUS 00 GASTROENTE RITIS AND COLITIS Active 01/21/2019 [facility] Irregular Irregular Disease Active Uni vers menstrual menstrual 8-15 ity of cycle cycle 00:00: [address] Skin Skin Disease Active Univers lesion lesion 8-15 ity of 00:00: [address] Psychiatri Psychiatri Disease Active U nivers c disorder c disorder 8-15 it y of 00:00: [address] Well woman Well woman Disease Active U nivers exam with exam with 8-15 ity of routine routine 00:00: [place] gynecologi gynecologi 00 Me dical nicky exam nicky exam Branch INFECTIOUS Diagnosis Active 2019-02-06 Memoria GASTROENTE 08:58:00 l RITIS AND Yonis COLITIS, INFECTIOUS GASTROENTE RITIS AND COLITIS, Active [facility] Allergies, Adverse Reactions, Alerts Allergy Allergy Status Severity Reaction(s) Onset Inactive Treating Comm ents Source Name Type Date Date Clinician NO KNOWN Drug Active Univers ALLERGIE Class ity of S [facility] Phenerga Phenerga Active [place] a n n winifred [place] Social History Social Habit Start Date Stop Date Quantity Comments Source History of Cigarette Smoker Universi ty of tobacco use [facility] Tobacco Comment 2-3 cigs a day [facility] Exposure to Not sure [place] of SARS-CoV-2 [facility] (event) [place] Tobacco use and 2016-06-08 2016-06-08 [facility] 00:00:00 00:00:00 [facility] Alcohol intake 2016-06-08 2016-06-08 0 /d University of 00:00:00 00:00:00 [facility] Sex Ass[birth year] At [birth year] Universit y of 00:00:00 00:00:00 [facility] Smoking Status Start Date Stop Date Source Social History 2019-01-22 05:00:12 Jeanne urena Current some day smoker 2016-06-08 00:00:00 [facility] Medications Ordered Filled Start Stop Current Ordering [...] ity of (PF)) 06:45: 05:54 ONCE, 1 [place] injection 4 00 :00 dose, On Medi nicky mg Wed09/10/21 at 0045, RANDA NaCl 0.9% 2020-10- No 1000mL at 999 Uni vers (NS) bolus 11-10 mL/hr, ity of infusion 05:30: 05:30 1,000 mL, Joe as 1,000 mL 00 :00 IV Medical Infusion, Branch ONCE, 1 dose, On Wed09/09/21 at 2330, ARNDA amoxicillin 2020-10 Yes [id number] 500mg Take 1 Univers 500 mg 11-10 capsule by ity of capsule 00:00: mouth 3 [place] 00 (three) Medical times Branch daily. ondansetron 2019-10- No 4mg 4 mg, [facility] ers (ZOFRAN-ODT 12-01- Oral, ity of [...] 4 mg 0830, Routine ondansetron 2019-10 Yes [id number] 4mg Take 1 Univers 4 mg 2-07 tablet by ity of disintegrat 00:00: mouth [place] ing tablet 00 every 8 Medica l (eight) Branch hours as needed for Nausea and Vomiting (N/V). ondansetron 2019-10 Yes [id number] 4mg Take 1 Univers 4 mg 2-07 tablet by ity of disintegrat 00:00: mouth [place] ing tablet 00 every 8 Medica l (eight) Branch hours as needed for Nausea and Vomiting (N/V). ondansetron 2019-10 Yes [id number] 4mg Take 1 Univers 4 mg 2-07 tablet by ity of disintegrat 00:00: mouth [place] ing tablet 00 every 8 Medica l (eight) Branch hours as needed for Nausea and Vomiting (N/V). ondansetron 2019-10 Yes [id number] 4mg Take 1 Univers 4 mg 2-07 tablet by ity of disintegrat 00:00: mouth [place] ing tablet 00 every 8 Medica l (eight) Branch hours as needed for Nausea and Vomiting (N/V). ciprofloxac 2018- Yes 500 mg = 1 Memoria in 500 mg 4-04 tab, PO, l oral tablet 17:35: [id number], X Yonis 00 4 day, # 8 tab, 0 Refill(s) Ondansetron Yes 4 mg = 1 Me moria 4 MG Oral 4-04 tab, PO, l Tablet 17:35: Q6H, PRN [place] [Zofran] 00 Nausea/Vom iting, # 20 [...] 4-04 tab, PO, l oral tablet 17:35: [id number], X Yonis 00 4 day, # 8 tab, 0 Refill(s) Ondansetron 2019-0 Yes 4 mg = 1 Me moria 4 MG Oral 4-04 tab, PO, l Tablet 17:35: Q6H, PRN [place] [Zofran] 00 Nausea/Vom iting, # 20 [...] 4-03 (Same as: l 13:26: K-Dur 20) [place] 00 "Do Not Crush" Give with food and full glass of water For patients unable to swallow tablet, dissolve in one half glass of water. Allow about 2 minutes for the tablets to disintegra te. Stir before giving to prepare slurry and administer . Please exclude Patient s with feeding tube less than 14 [place] (Dobhoff, J-tube etc) and pediatric and patients. [...] s with feeding tube less than 14 [place] (Dobhoff, J-tube etc) and pediatric and patients. [...] ia 4-01 (Same As: l 18:00: KlonoPIN) [place] 00 Clonazepam No Notes: Memor ia 4- (Same As: l 18:00: KlonoPIN) [place] Flagyl No Notes: Memoria 4- (Same as: l 15:00: Flagyl) Yonis 00 Take with food/ avoid alcohol Cipro No Notes: May Memori a 4- interfere l 15:00: w/enteral [place] 00 feedings - Take 1 hr before or 2 hrs after antacids, dairy pdt & minerals. On empty stomach. Flagyl No Notes: Memoria 4- (Same as: l 15:00: Flagyl) [place] 00 Take with food/ avoid alcohol [...] PO, ONCE, l mEq oral 14:20: 0 [place] tablet, 00 Refill(s) extended release Metronidazo No 500 mg, Mem oria le 500 MG 4-01 PO, l Oral Tablet 14:20: [id number], 0 H ermann [Flagyl] 00 Refill(s) Ciprofloxac No 500 mg, Mem oria in 500 MG 4-01 PO, l Oral Tablet 14:20: [id number], 0 Yonis [Cipro] 00 Refill(s) potassium Yes [...] MG 4-01 PO, l Oral Tablet 14:20: [id number], 0 [place] [Cipro] 00 Refill(s) Potassium No Notes: Memori [...] s with feeding tube less than 14 [place] (Dobhoff, J-tube etc) and pediatric and patients. Potassium No Notes: Memori a Chloride -01 (Same as: l 14:17: K-Dur 20) [place] 00 "Do Not Crush" Give with food and full glass of water For patients unable to swallow tablet, dissolve in one half glass of water. Allow about 2 minutes for the tablets to disintegra te. Stir before giving to prepare slurry and administer . Please exclude Patient s with feeding tube less than 14 [place] (Dobhoff, J-tube etc) and pediatric and patients. Pepcid No Notes: Memoria 3-31 (Same as: l 22:00: Pepcid) Y[place] 00 Pepcid No Notes: Memoria 3-31 (Same as: l 22:00: Pepcid) [place] 00 Strattera Yes 0.5 mg/kg, Me [...] tab, PO, l Tablet 21:08: BID, 0 [place] [Risperdal] 00 Refill(s) Strattera Yes 0.5 mg/kg, [...] tab, PO, l Tablet 21:08: BID, 0 [place] [Risperdal] 00 Refill(s) Zosyn No Notes: Memoria [...] Syringe -31 25 mL, l 09:47: Route: [place] 00 IVP, Drug Form: INJ, Dosing [...] 3-31 Route: IM, l 09:47: Drug form: [place] 00 PDR/INJ, PRN, Dosing Weight 75.994, [...] Memoria 3-31 (Same as: l 06:10: Zosyn) [place] 00 Dosing based on Piperacill in component MEDICATION WASTE Product Size: 3375 mg Product Wasted: ___ mg Zosyn No Notes: Memoria 3-31 (Same as: l 06:10: Zosyn) Yonis 00 Dosing based on Piperacill in component MEDICATION WASTE Product Size: 3375 mg Product Wasted: ___ mg NS (Bolus) No 1,000 mL, Me moria IV 3-31 1,000 l 05:44: ml/hr, [place] 00 Infuse Over: 1 hr, Route: [...] (KLONOPIN 8-15 mouth. ity of ORAL) 19:02: [place] [address] Medical Branch CITALOPRAM 2016-0 Yes Take by Uni vers HYDROBROMID 8-15 mouth. ity of E 19:02: [place] (CITALOPRAM 27 Medical ORAL) Branch ibuprofen 2016-0 Yes 200mg Take 200 Uni vers (ADVIL) 200 8-15 mg by ity of mg tablet 14:02: mouth [place] [address] every 6 Medical (six) Branch hours as needed. CLONAZEPAM 2016-0 Yes Take by Uni vers (KLONOPIN 8-15 mouth. ity of ORAL) 14:02: [place] [address] Medical Branch CITALOPRAM 2016-0 Yes Take by Uni vers HYDROBROMID 8-15 mouth. ity of E 14:02: [place] (CITALOPRAM 27 Medical ORAL) Branch ibuprofen 0 Yes 200mg Take 200 Uni vers (ADVIL) 200 8-15 mg by ity of mg tablet 14:02: mouth [place] [address] every 6 Medical (six) Branch hours as needed. CLONAZEPAM 2016-0 Yes Take by Uni vers (KLONOPIN 8-15 mouth. ity of ORAL) 14:02: [address] Branch CITALOPRAM 2016-0 Yes Take by Uni vers HYDROBROMID 8-15 mouth. ity of E 14:02: [place] (CITALOPRAM 27 Medical ORAL) Branch ibuprofen 2015-0 Yes 200mg Take 200 Uni vers (ADVIL) 200 8-15 mg by ity of mg tablet 14:02: mouth [place] [address] every 6 Medical (six) Branch hours as needed. CLONAZEPAM 2016-0 Yes Take by Uni vers (KLONOPIN 8-15 mouth. ity of ORAL) 14:02: [address] Branch CITALOPRAM 2016-0 Yes Take by Uni vers HYDROBROMID 8-15 mouth. ity of E 14:02: [place] (CITALOPRAM 27 Medical ORAL) Branch misoprostol 2015-0 [...] H it y of en-caff 00:00: PRN. [place] (ESGIC) 00 Medical 50-325-40 Branch mg tablet butalbital- 2015-0 Yes TK 1 TO 2 U nivers acetaminoph 8-01 T PO Q 8 H it y of en-caff 00:00: PRN. [place] (ESGIC) 00 Medical 50-325-40 Branch mg tablet butalbital- 2016-0 Yes TK 1 TO 2 U nivers acetaminoph 8-01 T PO Q 8 H it y of en-caff 00:00: PRN. [place] (ESGIC) 00 Medical 50-325-40 Branch mg tablet butalbital- 2016-0 Yes TK 1 TO 2 U nivers acetaminoph 8-01 T PO Q 8 H it y of en-caff 00:00: PRN. [place] (ESGIC) 00 Medical 50-325-40 Branch mg tablet dextroamphe 2015- Yes TK 1 T PO U nivers tamine-amph 7-20 BID. ity of etamine 00:00: [place] (ADDERALL) 00 Medical 20 mg Branch tablet dextroamphe 2015-0 Yes TK 1 T PO U nivers tamine-amph 7-20 BID. ity of etamine 00:00: [place] (ADDERALL) 00 Medical 20 mg Branch tablet [...] 2021-09-10 08:01:00 138 mm[Hg] [facility] Di[facility] blood 2021-09-10 08:01:00 97 mm[facility]Hg[facility] 2021-09-10 08:01:00 87 /min [facility] Respiratory rate 2021-09-10 08:01:00 20 /min [facility] Oxygen saturation in 2021-09-10 08:01:00 98 /min [facility] Arterial blood by [facility] Pulse oximetry [place] Body temperature 2021-09-10 04:28:51 37.17 Ruthann [facility] Body height 2021-09-10 04:26:00 154.9 cm [facility] Body weight 2021-09-10 04:26:00 81.647 kg [facility] BMI 2021-09-10 04:26:00 34.01 kg/m2 [facility] Systolic blood 2021-09-09 20:06:00 150 mm[Hg] [facility]iver [facility] Diastolic blood 2021-09-09 20:06:00 89 mm[Hg] [facility] 2021-09-09 20:06:00 108 /min [facility] Body temperature 2021-09-09 20:06:00 37.22 Ruthann [facility] Respiratory rate 2021-09-09 20:06:00 18 /min [facility] Oxygen saturation in 2021-09-09 20:06:00 99 /min University of Arterial blood by [facility] Pulse oximetry Branch Body weight 2021-09-09 20:05:00 81.647 kg Universi ty of [place] [facility] BMI 2021-09-09 20:05:00 32.40 kg/m2 [facility]i ty [facility] [place] [facility] Systolic blood 2020-09-30 14:00:00 126 mm[Hg] Univer sity of pressure [place] [facility] Diastolic blood 2020-09-30 14:00:00 84 mm[Hg] Unive rsity of pressure [place] [facility] Heart rate 2020-09-30 14:00:00 79 /min Universi ty [facility] [place] [facility] Oxygen saturation in 2020-09-30 14:00:00 98 /min University of Arterial blood by [facility] Pulse oximetry Branch Body temperature 2020-09-30 13:26:00 37.22 Ruthann Univ ersity of [place] [facility] Respiratory rate 2020-09-30 13:26:00 16 /min Univ ersity [facility] [place] [facility] Body weight 2020-09-30 13:26:00 72.576 kg [facility]i ty [facility] [place] [facility] BMI 2020-09-30 13:26:00 28.80 kg/m2 [facility] [place] [facility] Systolic blood 2020-09-30 14:00:00 126 mm[Hg] Univer sity of pressure [place] [facility] Diastolic blood 2020-09-30 14:00:00 84 mm[Hg] Unive rsity of pressure [place] [facility] Heart rate 2020-09-30 14:00:00 79 /min [facility]i ty [facility] [place] [facility] Oxygen saturation in 2020-09-30 14:00:00 98 /min University of Arterial blood by [facility] Pulse oximetry Branch Body temperature 2020-09-30 13:26:00 37.22 Ruthann Univ ersity of [place] [facility] Respiratory rate 2020-09-30 13:26:00 16 /min Univ ersity [facility] [place] [facility] Body weight 2020-09-30 13:26:00 72.576 kg Universi ty [facility] [place] [facility] BMI 2020-09-30 13:26:00 28.80 kg/m2 [facility] [place] [facility] Temperature Oral (F) 2019-01-28 01:16:00 98.6 F [facility] Systolic (mm Hg) 2019-01-28 01:16:00 Estrada rial Yonis Diastolic (mm Hg) 2019-01-28 01:16:00 Mem orial Y[place] Heart Rate 2019-01-28 01:16:00 [facility] [place] Respitory Rate 2019-01-28 01:16:00 Memori al Yonis Systolic (mm Hg) 2019-01-27 20:42:00 Estrada rial [place] Diastolic (mm Hg) 2019-01-27 20:42:00 Mem orial Y[place] Heart Rate 2019-01-27 20:42:00 [facility] [place] Respitory Rate 2019-01-27 20:42:00 Memori al Yonis Temperature Oral (F) 2019-01-27 20:42:00 98.5 F [facility] [place] Systolic (mm Hg) 2019-01-27 17:00:00 Estrada rial Yonis Diastolic (mm Hg) 2019-01-27 17:00:00 Mem orial [place] Temperature Oral (F) 2019-01-27 17:00:00 98.5 F Memorial [place] Heart Rate 2019-01-27 17:00:00 Memorial [place] Respitory Rate 2019-01-27 [facility]:00[facility] Height 2019-01-22 14:35:00 157.48 cm [facility] BMI Calculated 2019-01-22 14:35:00 Memori al [place] Weight 2019-01-22 14:35:00 [facility] [place] Weight 2019-01-22 04:34:00 [facility] Procedures Procedure Date / Time Performing Clinician Source Performed URINALYSIS 2021-09-10 06:03:00 Neena Bradford [facility] URINE DRUG (IMMUNOASSAY) 2021-09-10 06:03:00 Neena Bradford [facility] SCREEN W/O REFLEX XR CHEST 1 VW 2021-09-10 04:57:30 Neena Bradford [facility] CREATINE KINASE 2021-09-10 04:39:00 Neena Bradford [facility] MAGNESIUM 2021-09-10 04:39:00 Neena Bradford [facility] TROPONIN I 2021-09-10 04:39:00 Neena Bradford [facility] COMP. METABOLIC PANEL 2021-09-10 04:39:00 Neena Bradford [facility] ([id number]) Medical Branch CBC WITH DIFF 2021-09-10 04:39:00 Neena Bradford [facility] PROTHROMBIN TIME / INR 2021-09-10 04:39:00 Neena Bradford [facility] ACTIVATED PARTIAL 2021-09-10 04:39:00 [facility] N-TERMINAL PRO-BNP 2021-09-10 04:39:00 Neena Bradford [facility] COVID-19 (ID NOW RAPID 2021-09-10 04:39:00 Neena Bradford [facility] TESTING) Medical Branch TROPONIN I 2021-09-09 21:49:00 [facility] COMP. METABOLIC PANEL 2021-09-09 21:49:00 DumontLuanne buenrostro [facility] ([id number]) Medical Branch LITHIUM 2021-09-09 21:49:00 Luanne Dumont [facility] CBC WITH DIFF 2021-09-09 21:49:00 [facility] CONSENT/REFUSAL FOR 2021-09-09 19:51:22 Doctor Unassigned, No Un [facility] DIAGNOSIS AND TREATMENT Name Medical Branch URINALYSIS 2020-09-30 13:27:00 Chuy Jackson [facility] ADC,CLC OR LCC ONLY - 2020-09-30 13:27:00 Chuy Jackson [facility] INFLUENZA A & B DIRECT Medical B ranch ANTIGEN COVID-19 (ID NOW RAPID 2020-09-30 13:27:00 [facility] TEST[facility]) Medical Branch Encounters Start End Encounter Admission Attending Care Care Encounter Source Date/Time Date/Time Type Type Clinicians Facility Department ID 2019-01-22 Inpatient E [facility] MED [id number] [facility] W 04:39:00 2021-09-09 2021-09-10 Emergency X DENIA BRADFORD ERT [id number] Univers 22:20:00 03:02:00 NEENA [facility] 2021-09-09 2021-09-10 Emergency DENIA Bradford [id number] Univers 22:20:00 03:02:00 Neena WALSH [id number] i ty of [place] 4.2.7.2.686 [facility] [id number] [address] 2021-09-09 2021-09-10 Emergency Lise BRADFORD [facility] ERT [id number] Univers 22:20:00 03:02:00 NEENA tubbs [facility] 2021-09-09 2021-09-[address] [facility] [id number] Univers 14:07:00 17:35:00 Luanne GOVEACHEN [id number] i ty of [place] 4.2.7.2.686 [facility] [id number] [address] 2021-09-09 2021-09-09 Orders Doctor BELKYS [id number] Univers 00:00:00 00:00:00 Only Unassigned, LANA [id number] [facility] 4.2.7.2.686 [facility] [id number] [place] [address] Branch 2020-09-30 2020-09-30 Emergency [facility] [id number] Univers 07:22:00 08:18:00 Chuy Tony 350.1.13.10 i ty of [place] 4.2.7.2.686 [facility] [id number] [address] 2020-09-30 2020-09-30 Emergency [facility] [id number] 07:22:00 08:18:00 Chuy Goveaton 350.1.13.10 [place] 4.2.7.2.686 [place] [id number] 2020-09-30 2020-09-30 Emergency [facility] [id number] Univers 07:22:00 07:22:00 CHUY tubbs [facility] 2020-04-05 2020-04-05 Outpatient [facility] [id number] [id number] [facility] 05:44:00 05:44:00 _A_ [id number] Family Practic e 2020-04-05 2020-04-05 Outpatient Humaira-Alekso VFP VFP [id number] [facility] 05:44:00 05:44:00 _A_AH 12434 Family Practic e 2020-04-05 2020-04-05 Outpatient Humaira-Mbmanojo VFP VFP [id number] [facility] 05:44:00 05:44:00 _A_AH 40354 Family Practic e 2020-04-05 2020-04-05 Outpatient Humaira-Mbmanojo VFP VFP [address] [place] [address] 05:44:00 05:44:00 _A_AH 61080 Family Practic e 2020-03-04 2020-03-14 Inpatient 3 [place], [facility] PSY [id number] 15:38:00 15:25:00 [facility] 2019-12-13 2019-12-13 Outpatient Humaira-Alekso VFP VFP [address] [place] [address] 07:22:00 07:22:00 _A_AH [id number] Family Practic e 2019-01-22 2019-01-28 Inpatient [facility] [id number] Memoria 04:33:00 04:40:00 r Yonis 00 l [facility] 2018-02-21 2018-02-20 [id number] 14:48:00 13:18:00 [facility] Results Test Description Test Time Test Comments Results Result Comments Source TROPONIN I 2021-09-10 05:26:53 Test Item Value Reference Range Interpretation Comme nts TROPONIN I (test code = 0.003 ng/mL See_Comment [Au tomated message] The 3822634645) system which ge nerated this result tra [...] biotin. Lab Interpretation Normal (test code = 42104-9) [id number] 05:24:16 Test Item Value Reference Range Interpretation Comments NT-proBNP (test code 35 pg/mL See_Comment [Autom ated = 4480678172) message] The system which generated this result transmitted reference range : <=125. The reference range was not used to interpret this result as normal/abnormal . PERRY (test code = PERRY) Biotin has been reported to cause a negative bias, interpret results relative to patient's use of biotin. Lab Interpretation Normal (test code = 69704-3) [facility]2021-[facility]-17 05:16:51 Test Item Value Reference Range Interpretation Comments MAGNESIUM (test code = 5522216921) 1.8 mg/dL 1.7-2.4 Lab Interpretation (test code = Normal 53003-3) [facility] METABOLIC PANEL ([id number])2021-09-10 05:16:31 Test Item Value Reference Range Interpretation Comments NA (test code = 139 mmol/L 135-145 2889314750) K (test code = 4.0 mmol/L 3.5-5.0 8114427002) CL (test code = 108 mmol/L 98-108 3247668492) CO2 TOTAL (test code 25 mmol/L 23-31 = 4953664219) AGAP (test code = 2-16 2586761481) BUN (test code = 14 mg/dL 7-23 1892831035) GLUCOSE (test code = 88 mg/dL 70-110 4385641562) CREATININE (test code 0.89 mg/dL 0.50-1.04 = 0677165924) TOTAL BILI (test code 0.5 mg/dL 0.1-1.1 = 4917150856) CALCIUM (test code = 10.3 mg/dL 8.6-10.6 7731315660) T PROTEIN (test code 6.9 g/dL 6.3-8.2 = 9561488459) ALBUMIN (test code = 4.3 g/dL 3.5-5.0 7275596118) ALK PHOS (test code = 72 U/L 34-122 2854002914) ALTv (test code = 17 U/L 5-35 2-6) AST(SGOT) (test code 29 U/L 13-40 = 5234098930) eGFR (test code = mL/min/1.73m2 9869575953) PERRY (test code = PERRY) Association of [...] or urine or abnormalities in imaging tests). [facility]icsCREATINE [id number] 05:16:16 Test Item Value Reference Range Interpretation Comments CK (test code = 8758239503) 267 U/L 33-194 H Lab Interpretation (test code = Abnormal 74558-5) [facility]icsACTIV[facility] PARTIAL THRMPLAS [id number] 05:05:32 Test Item Value Reference Range Interpretation Comments APTT Patient (test See_Comment [Automat ed code = 3173-2) message] The system which generated this result transmitted reference range : 23 - 38 Seconds . The reference range was not used to interpr et this result as normal/abnormal . PERRY (test code = PERRY) The [facility] patient population mean normal value for aPTT is 30 seconds. Lab Interpretation Normal (test code = 95292-5) [facility]icsPROTHROMBIN TIME / [id number] 05:03:30 Test Item Value Reference Range Interpretation [...] tions. Lab Interpretation (test Normal code = 50017-2) General acute hospital WITH [id number] 04:57:13 Test Item Value Reference Range Interpretation Comments WBC (test code = See_Comment [Automated 3390-2) message] The sy stem which generated this result transmitted reference range : 4.30 - 11.10 10*3/?L. The reference range was not used to interpret this result as normal/abnormal . RBC (test code = See_Comment [Automated 879-8) message] The sy stem which generated this [...] RDW-SD (test code = 41.2 fL 39.0-49.9 55685-3) RDW-CV (test code = 13.0 % 12.0-15.5 788-0) PLT (test code = See_Comment H [Automated 777-3) message] The sy stem which generated this result transmitted reference range : 166 - 358 10*3/ ?L. The reference r katie was not used to interpret this result as normal/abnormal . MPV (test code = 9.6 fL 9.5-12.9 17102-4) NRBC/100 WBC (test See_Comment [Automat ed code = 3315457135) message] The system which generated this result transmitted reference range : 0.0 - 10.0 /100 WBCs. The refer ence range was not u sed to interpret th is result as normal/abnormal . NRBC x10^3 (test code <0.01 See_Comment [Auto mated = 6073690919) message] The s ystem which generated this result transmitted reference range : 10*3/?L. The reference range was not used to interpret this result as normal/abnormal . GRAN MAT (NEUT) % 61.9 % (test code = 770-8) IMM GRAN % (test code 0.30 % = 7410753331) LYMPH % (test code = 26.0 % 736-9) MONO % (test code = 9.5 % 5905-5) EOS % (test code = 1.6 % 713-8) BASO % (test code = 0.7 % 706-2) GRAN MAT x10^3(ANC) 5.91 10*3/uL 1.88-7.09 (test code = 1373569292) IMM GRAN x10^3 (test 0.03 10*3/uL 0.00-0.06 code = 8808366032) LYMPH x10^3 (test code 2.48 10*3/uL 1.32-3.29 = 731-0) MONO x10^3 (test code 0.91 10*3/uL 0.33-0.92 = 742-7) EOS x10^3 (test code = 0.15 10*3/uL 0.03-0.39 711-2) BASO x10^3 (test code 0.07 10*3/uL 0.01-0.07 = 704-7) Lab Interpretation Abnormal (test code = 67039-7) [facility]icsTR[facility]IN V5105-36-06 22:24:55 Test Item Value Reference Interpretation Comments Range TROPONIN I (test 0.002 ng/mL See_Comment [Automated code = 9194156117) message] The system which generated this result [...] biotin. Lab Interpretation Normal (test code = 86830-2) [facility] 22:24[facility]34 Test Item Value Reference Range Interpretation Comments [place] (test code = <0.2 0.6-1.2 L 7155289998) PERRY (test code = PERRY) Toxic Range: ? Greater than 1.2 mmol/L Lab Interpretation (test Abnormal code = 01823-3) [facility] METABOLIC PANEL (64230)2021-09-09 22:13:54 Test Item Value Reference Range Interpretation Comments NA (test code = 139 mmol/L 135-145 9441725786) K (test code = 4.0 mmol/L 3.5-5.0 9468796249) CL (test code = 105 mmol/L 98-108 5795644518) CO2 TOTAL (test code 26 mmol/L 23-31 = 5781917765) AGAP (test code = 2-16 7210388825) BUN (test code = 11 mg/dL 7-23 0426950671) GLUCOSE (test code = 109 mg/dL 70-110 1659922492) CREATININE (test code 0.71 mg/dL 0.50-1.04 = 4151986594) TOTAL BILI (test code 0.6 mg/dL 0.1-1.1 = 3819189782) CALCIUM (test code = 10.4 mg/dL 8.6-10.6 5103910808) T PROTEIN (test code 7.6 g/dL 6.3-8.2 = 2217405776) ALBUMIN (test code = 4.7 g/dL 3.5-5.0 9046214165) ALK PHOS (test code = 78 U/L 34-122 3732842077) ALTv (test code = 19 U/L 5-35 1742-6) AST(SGOT) (test code 28 U/L 13-40 = 8057619379) eGFR (test code = mL/min/1.73m2 5087623165) PERRY (test code = PERRY) Association of [...] in imaging tests). [facility] acute hospital WITH HEBU4681-94-97 22:03:32 Test Item Value Reference Range Interpretation [...] RDW-SD (test code = 40.2 fL 39.0-49.9 04455-6) RDW-CV (test code = 12.9 % 12.0-15.5 788-0) PLT (test code = See_Comment H [Automated 777-3) message] The sy stem which generated this result transmitted reference range : 166 - 358 10*3/ ?L. The reference r katie was not used to interpret this result as normal/abnormal . MPV (test code = 9.4 fL 9.5-12.9 L 33647-6) NRBC/100 WBC (test See_Comment [Automat ed code = 1284599273) message] The system which generated this result transmitted reference range : 0.0 - 10.0 /100 WBCs. The refer ence range was not u sed to interpret th is result as normal/abnormal . NRBC x10^3 (test code <0.01 See_Comment [Auto mated = 5261383842) message] The s ystem which generated this result transmitted reference range : 10*3/?L. The reference range was not used to interpret this result as normal/abnormal . GRAN MAT (NEUT) % 67.1 % (test code = 770-8) IMM GRAN % (test code 1.00 % = 5297147007) LYMPH % (test code = 21.4 % 736-9) MONO % (test code = 7.9 % 5905-5) EOS % (test code = 1.8 % 713-8) BASO % (test code = 0.8 % 706-2) GRAN MAT x10^3(ANC) 7.35 10*3/uL 1.88-7.09 H (test code = 1610171817) IMM GRAN x10^3 (test 0.11 10*3/uL 0.00-0.06 H code = 1822240915) LYMPH x10^3 (test code 2.34 10*3/uL 1.32-3.29 = 731-0) MONO x10^3 (test code 0.86 10*3/uL 0.33-0.92 = 742-7) EOS x10^3 (test code = 0.20 10*3/uL 0.03-0.39 711-2) BASO x10^3 (test code 0.09 10*3/uL 0.01-0.07 H = 704-7) Lab Interpretation Abnormal (test code = 60896-5) [facility] - INFLUENZA A & B DIRECT SYYCBMK7813-64-88 14:04:00 Test Item Value Reference Range Interpretation Comments Influenza A (test code = 62698-1) Negative Negative Influenza B (test code = 66065-0) Negative Negative Lab Interpretation (test code = Normal 70985-5) [facility]icsCOVID-[facility] (ID NOW RAPID TESTING)2020-09-30 14:03:00 Test Item Value Reference Range Interpretation Comments SARS-CoV-2 Rapid ID NOW Not Detected Not Detected (test code = 23134-8) PERRY (test code = PERRY) ID NOW COVID-19 Assay is an isothermal nucleic acid amplification test intended for the qualitative detection of nucleic acid from SARS-CoV-2 viral RNA in nasopharyngeal ([employer]) specimens. It is used under Emergency [...] indicated. Lab Interpretation Normal (test code = 64204-7) [facility]IN[facility]IS2020-12-07 13:55:00 Test Item Value Reference Range Interpretation Comments APPEARANCE (test code = Hazy Clear A 1999076431) COLOR (test code = Yellow Yellow 8817311092) PH (test code = 4.8-8.0 9885487796) SP GRAVITY (test code = 1.003-1.030 0230216595) GLU U QUAL (test code = Normal Normal 1102286202) BLOOD (test code = Negative Negative 4626383362) KETONES (test code = 5 mg/dL Negative A 5982285296) PROTEIN (test code = Negative Negative 2887-8) UROBILIN (test code = 2.0 mg/dL Normal A 8556345400) BILIRUBIN (test code = Negative Negative 6211540384) NITRITE (test code = Negative Negative 0095931767) LEUK ROZINA (test code = 25/uL Negative A 3515214649) RBC/HPF (test code = See_Comment [Autom ated message] 2571504512) The system Skwibl generated this result transmit ngozi reference range : 0 - 3 HPF. The refe rence range was not u sed to interpret th is result as normal/abnormal . WBC/HPF (test code = See_Comment [Autom ated message] 4412570826) The system Skwibl generated this result transmit ngozi reference range : 0 - 5 HPF. The refe rence range was not u sed to interpret th is result as normal/abnormal . BACTERIA (test code = Few Negative A 5308436358) MUCOUS (test code = Slight Negative LPF A 3641873040) SQ EPITH (test code = HPF 2699156133) Lab Interpretation (test Abnormal code = 68630-5) [facility]icsRPR Dkcfmrwoxos9096-47-67 16:42:24 Test Item Value Reference Range Interpretation [...] = 10-24-2020 N Expiration Dt) Thyroid Stimulating Qatzono4730-08-69 08:35:16 Test Item Value Reference Range Interpretation Comments TSH (test code = TSH) 1.170 mIU/mL 0.270-4.200 Lipid Uqagi9332-46-29 08:21:19 Test Item Value Reference Range Interpretation [...] calculation is LDL/HDL Ratio=L DL Calc/HDL Chol PRYSZHVHJETZ1226-83-79 08:24:008.6[facility] HzbzuvcUFIRNRKGRHKC6865-19-23 08:24:21059Cnnqgyhf CvstqqqVHDYUIUMGTAO6784-54-15 08:24:0027[facility] QLNWMODWPTMK5366-41-65 08:24:12890Pggbegvo JalyitqOWPCGHKQQEVP8964-02-28 08:24:003.6[facility] XrbjkgrPCDJQQQEMBYY0301-52-82 08:24:000.70[facility] IJUJIZZZHVXD3150-54-53 08:24:008.4[facility] TbzlknvUGWZVFJKZEWZ5950-45-22 08:24:52761Pznreqln WamjtpgMEYWFEPVLPWS9061-46-45 08:24:0086[facility] WJMQJBNJKAVP3838-60-93 08:24:006[facility] AaeqfehVGPAFIWOXT2464-12-44 08:24:00 11.6[facility] JtwezihNVFOMWYMGB8048-70-01 08:24:003.78[facility]annHEMATOLOGY 2019-01-26 08:24:0013.3[facility] AaxvginEITCFKDLKQ5478-89-36 08:24:0034.0[facility] OeiawzjKUUTURPSOI6018-32-26 08:24:006.3[facility] YsseyghDADURCGBBI4585-82-94 08:24:00 Test Item Value Reference Range Interpretation Comments MCH (test code = MCH) 30.7 pg 27.0-31.0 [facility] NdzoyirXOTWVQLYNQ5766-96-74 08:24:0090.3[facility]annHEMATOLOGY 2019-01-26 08:24:0034.2[facility] PsafztsPABSVHAQUU7889-82-27 08:24:30758Ymsbffeh DqormodJMUHJOQJVK0202-04-40 08:24:007.5[facility] LbdoqwyKXYGYSEYTSHZ3277-99-38 08:24:008.6[facility] MetblfmPSPLOHMEJAIV6006-67-37 08:24:82655Qswttsyu [facility] UGDVRBVVMIYC6091-67-92 08:24:0027[facility] GghqavwZWKQXKMWEASM7217-56-87 08:24:00 139[facility] OfagwxrEVVRGFHQYRJC2421-46-12 08:24:003.6[facility] [place] IBIQZXXYGHRM3033-87-00 08:24:000.70[facility] AnyeapsPHMGQZAVWQCE2090-33-97 08:24:008.4[facility] JcayociMKSTXGVJFTES8008-25-62 08:24:36752Bxzilywd [facility] RKQEUGORGFYH3575-72-86 08:24:0086[facility] BphbmsxSFWRAXDONFJR4996-13-84 08:24:00 6[facility] YqnocvbINDJSAVDST4723-31-31 08:24:0011.6[facility]annHEMATOLOGY 2019-01-26 08:24:003.78[facility] VsyafsmBKUVVMKKBX2600-02-43 08:24:0013.3[facility] FxxuhnlMYGYKCJKPU8577-87-72 08:24:0034.0[facility] EegdksoNTROVWMTNP9500-99-13 08:24:006.3[facility] BcycqbvXDNNNKCPPW4577-09-88 08:24:00 Test Item Value Reference Range Interpretation Comments MCH (test code = MCH) 30.7 pg 27.0-31.0 [facility] BlnootxZDQXMBAPBR1837-49-14 08:24:0090.3[facility]annHEMATOLOGY 2019-01-26 08:24:0034.2[facility] RzygmwzGZFXJVRIYO1584-71-70 08:24:72147Borsixrv YhsjgvdLBXOGJYNLA2655-81-42 08:24:007.5[facility] HermannCHEM JXHIU9450-44-55 09:14:55950Fwhkzcyr HermannCHEM DSQZT6608-40-11 09:14:008.5[facility]annCHEM IIBVV2179-18-28 09:14:0013.3[facility]annCHEM YMPDT7831-80-88 09:14:0024 [facility]annCHE[facility] DJFBP4887-14-54 09:14:47629Qestolne HermannCHEM PANEL 2019-01-25 09:14:0081[facility]annCHEM VFCNN8586-60-17 09:14:002[facility]annCHEM TJUTY6391-29-67 09:14:003.3[facility]annCHEM BWNJL4927-87-71 09:14:000.60[facility]annCHE[facility] MLCTW2776-70-83 09:14:00135Toecvcfn HermannCHEM ISISO1677-56-60 09:14:91988Wleoyque HermannCHEM BGKHG0497-04-00 09:14:008.5 [facility]annCHE[facility] WYQIT0427-18-77 09:14:0013.3[facility]annCHEM PANEL 2019-01-25 09:14:0024[facility]annCHEM HATMF9233-01-09 09:14:06767Mbaqiwkt [facility]annCHE[facility] CMMAH9295-15-22 09:14:0081[facility]annCHEM XPYTI9191-76-36 09:14:002[facility]annCHEM OGCOO9134-64-60 09:14:003.3[facility]annCHEM UJDMF3186-91-26 09:14:000.60[facility]annCHEM XYFYZ3560-82-74 09:14:88982 [facility]annMOLECULAR FBNPXQKAJG1894-06-25 16:22:00Negative (01/23/19 11:22 AM)[facility]annMOLECULAR ADCLZPSWNB7687-64-39 16:22:00Negative (01/23/19 11:22 AM)[facility]annCHEM EAYKU7602-91-31 15:42:002.76[facility]annCHEM PANEL 2019-01-23 15:42:002.76[facility]annCHEM AVIPK9651-25-05 12:32:000.9[facility]annCHEM XNEFU1604-55-26 12:32:000.9[facility]annCHEM CORIO7475-72-15 10:50:002.0[facility]annCHEM YXGQS2416-28-50 10:50:54847Feruqpbf [facility]annCHEM GSMNF1752-49-26 10:50:0023[facility]annCHEM ZYEXW1557-99-10 10:50:51669 [facility]annCHE[facility] ZBEMN1417-16-71 10:50:003.1[facility]annCHEM PANEL 2019-01-23 10:50:77499Sjhnhyuc HermannCHEM OGVJQ1004-59-59 10:50:005[facility]annCHEM RLACW6317-69-75 10:50:000.50[facility]annCHEM RJODP0136-85-50 10:50:007.8[facility]annCHEM AFXRJ5046-21-45 10:50:0083[facility]annCHEM UIAPE7800-66-02 10:50:0010.1[facility] EepmnboHSISLSYQBE1865-13-12 10:50:000.2 [facility] MlabckdOABXZWLIBV2461-60-67 10:50:000.8[facility]annHEMATOLOGY 2019-01-23 10:50:005.5[facility] ZygphklVOICUONWVC1729-66-84 10:50:002.2[facility] RgdetszFPRZDFTEAW6152-89-74 10:50:000.1[facility] VgpimeqEUWSPGWBRZ6060-07-20 10:50:0063.6[facility] IwbifgiLASMAGBYHG4034-79-82 10:50:008.9[facility] WBOASXGCQQ1316-39-89 10:50:002.3[facility] KcpbcnhOQABIZPVOR0973-19-71 10:50:00 Normal (01/23/19 5:50 AM)[facility] ZncylwrLJYMJUGWCJ3916-71-93 10:50:00Normal (01/23/19 5:50 AM)[facility] AjcjjbjZETISIESZG1757-98-20 10:50:0025.1[facility] EhsfgjwZVMYYWEBKR9253-45-41 10:50:0013.1[facility] OxoounsZGSJWGEIBC0152-35-25 10:50:48596Qigwcwjw BtnojycDIZKCPYBGY0616-47-65 10:50:007.7[facility] EJSWBZYIBS6701-03-71 10:50:008.6[facility] OyjtmxxUOAQHMLGLP1784-43-76 10:50:00 10.0[facility] NbyxnveARSQYBZWUD5593-46-41 10:50:0034.6[facility]annHEMATOLOGY 2019-01-23 10:50:0028.7[facility] HuvlaepREGLRQCIUM0594-73-28 10:50:0087.8[facility] CkpnubxSFNRGGDNKR3809-51-59 10:50:00 Test Item Value Reference Range Interpretation Comments MCH (test code = MCH) 30.4 pg 27.0-31.0 [facility] YepzqpcEHAVEBAFYZ9465-66-91 10:50:003.27[facility]annHEMATOLOGY 2019-01-23 10:50:34596Mkwewzue UylusljUESPHKUJZS4179-64-16 10:50:007.7[facility] VezgjrsVDPDLULCSV8405-14-28 10:50:008.6[facility] DbehengDFVTLIARCF6322-42-85 10:50:0010.0[facility] VwmjbgyZMXTCMCOZW0522-34-61 10:50:0034.6[facility] DUBZPXZOVZ4724-14-18 10:50:0028.7[facility] GkjwmykBUEXRAJDCJ0604-13-31 10:50:00 87.8[facility] GhmhetgDIFANNKYID2812-91-22 10:50:00 Test Item Value Reference Range Interpretation Comments MCH (test code = MCH) 30.4 pg 27.0-31.0 [facility] TyevtklXKUNZBWWOY2096-21-77 10:50:003.27[facility] HermannCHEM PANEL 2019-01-23 10:50:002.0[facility] HermannCHEM SNLPA8376-52-78 10:50:76467Fpgalmen HermannCHEM XWYXK5345-57-65 10:50:0023[facility]annCHEM WFCAC8633-11-66 10:50:71199Qeruuwyk HermannCHEM MHZMG8657-50-07 10:50:003.1[facility]annCHEM KGEWI7420-08-23 10:50:84493Rvrcndeb [facility]annCHEM HAPVZ5891-11-72 10:50:005 [facility]annCHEM TDCWZ2651-48-46 10:50:000.50[facility]annCHEM PANEL 2019-01-23 10:50:007.8[facility] HermannCHEM ICTCE0018-34-24 10:50:0083[facility]annCHEM NQOVG2758-54-75 10:50:0010.1[facility] MxqhpzqRULDDFRXTM0472-14-31 10:50:000.2[facility] ExcoybyJXSKCCBRGC6753-76-04 10:50:000.8[facility] [place] XBYSXRPBYJ3239-72-94 10:50:005.5[facility] ZbqbhbgQFVWFPCOZI7043-95-23 10:50:002.2 [facility] TxbfezpFDQDNZJLZV1302-45-56 10:50:000.1[facility]annHEMATOLOGY 2019-01-23 10:50:0063.6[facility] UwvsbysODRGYCEYDQ4762-52-74 10:50:008.9[facility] TqinkdlCBNAUBBUYA5520-44-09 10:50:002.3[facility] WcoqbnpFGPEFYSHQV7350-30-31 10:50:00Normal (01/23/19 5:50 AM)[facility] PscphwxMBNYDZOWAZ4652-01-21 10:50:00 Normal (01/23/19 5:50 AM)[facility] RmjslarORQNTXSHAJ9767-78-22 10:50:0025.1[facility] FvlnzltEBBTBUMMAL6180-54-15 10:50:0013.1[facility] HermannCHEM NGRNU4734-48-23 11:32:002.4[facility]annCHEM PJNMV9679-67-44 11:32:002.4[facility] HermannCHEM MHYTF7033-65-66 09:04:003.0[facility] HermannCHEM RHOND9695-81-19 09:04:003.0 [facility] AND GBCYH4270-15-44 07:14:00 Test Item Value Reference Range Interpretation Comments UA Spec Grav (test code = UA Spec 1.014 1 Grav) [facility] VOVTI6580-67-97 07:14:00 Test Item Value Reference Range Interpretation Comments UA pH (test code = UA pH) 6.0 1 5.0-8.0 [facility] AKZVO8163-50-24 07:14:00Negative (01/22/19 2:14 AM) [facility] RLVXB7768-35-62 07:14:00Negative *NA*(01/22/19 2:14 AM) [facility] JZJFR9590-78-72 07:14:00Negative *NA*(01/22/19 2:14 AM) [facility] AIWMA5581-69-79 07:14:00Negative *NA*(01/22/19 2:14 AM) [facility] LNZRL5046-52-37 07:14:00Negative (01/22/19 2:14 AM) [facility] NLFWV2682-03-81 07:14:00Negative (01/22/19 2:14 AM) [facility] MVCSQ4125-75-03 07:14:00Negative (01/22/19 2:14 AM) [facility] OZRMV0700-53-13 07:14:00<1[facility] GYJJI7606-57-13 07:14:0025[facility] IMIFJ8040-58-22 07:14:002 [facility] IZGNG9382-34-01 07:14:00Light Yellow *NA*(01/22/19 2:14 AM)[facility] WRJOE7403-91-35 07:14:00Clear (01/22/19 2:14 AM) [facility] QUNAX8679-28-35 07:14:00 Test Item Value Reference Range Interpretation Comments UA Spec Grav (test code = UA Spec 1.014 1 Grav) [facility] LKIRT1977-74-56 07:14:00 Test Item Value Reference Range Interpretation Comments UA pH (test code = UA pH) 6.0 1 5.0-8.0 [facility] VYNEG7076-58-81 07:14:00Negative (01/22/19 2:14 AM) [facility] VZPLQ8099-78-53 07:14:00Negative *NA*(01/22/19 2:14 AM) [facility] YUHBO8141-86-05 07:14:00Negative *NA*(01/22/19 2:14 AM) [facility] CMXGX7354-36-17 07:14:00Negative *NA*(01/22/19 2:14 AM) [facility] BPTPI3714-14-26 07:14:00Negative (01/22/19 2:14 AM) [facility] CVIKA8130-32-18 07:14:00Negative (01/22/19 2:14 AM) [facility] KBRNR4981-81-19 07:14:00Negative (01/22/19 2:14 AM) [facility] RNEHQ9530-56-49 07:14:00<1[facility] BYCWB7210-47-75 07:14:0025[facility] ZUTEX7291-63-94 07:14:002 [facility] EOFWE2990-86-21 07:14:00Light Yellow *NA*(01/22/19 2:14 AM)[facility] JBVXC8978-33-84 07:14:00Clear (01/22/19 2:14 AM) [facility] NjupkowCRNGE3387-66-27 05:16:000.90[facility] CmpelxkVSYCR5273-23-21 05:16:000.90[facility] NrysvfhLWGQWTFKBV3528-88-99 05:01:04281Gtkipdyi [place] KZEJPXTRNL5286-32-20 05:01:007.3[facility] HhmnldnGMLUOZGKNT8251-29-96 05:01:00 14.0[facility] ArfilzuEBPOKUMKHE7885-50-85 05:01:004.85[facility]annHEMATOLOGY 2019-01-22 05:01:0042.7[facility] DdrpvciNAUSPSPTEZ1885-22-01 05:01:00 Test Item Value Reference Range Interpretation Comments MCH (test code = MCH) 29.0 pg 27.0-31.0 [facility] BgpoehvVFWVYKTQPB2436-12-80 05:01:0088.2[facility]annHEMATOLOGY 2019-01-22 05:01:00 Test Item Value Reference Range Interpretation Comments INR (test code = INR) 0.96 1 0.85-1.17 [facility] RzvuycjYIWTRMLSEK0848-67-23 05:01:00 Test Item Value Reference Range Interpretation Comments PT (test code = PT) 12.6 s 12.0-14.7 [facility] FhbmwjiDINATXBILB1304-30-07 05:01:00 Test Item Value Reference Range Interpretation Comments PTT (test code = PTT) 25.9 s 22.9-35.8 [facility] HermannBLOOD BANK HBQCQZC5638-56-73 05:01:00Negative (01/22/19 12:01 AM) [facility]annCARDIAC AWQOTDI5862-04-17 05:01:00<0.02[facility] [place] CARDIAC PXYZEGC1022-05-41 05:01:0049[facility] HermannCHEM IBBAJ2580-37-12 05:01:000.6[facility] HermannCHEM OGVKQ4872-47-36 05:01:90214Avpiidgh HermannCHEM KJNXO7475-64-30 05:01:004.0[facility] HermannCHEM HTUND0466-19-50 05:01:0017 [facility]annCHEM BTVBX3429-92-66 05:01:0025[facility]annCHEM PANEL 2019-01-22 05:01:008.1[facility] HermannCHEM VTPXD4326-69-52 05:01:00 Test Item Value Reference Range Interpretation Comments B/C Ratio (test code = B/C Ratio) 20 1 6-25 [facility]annCHEM ZGXJH2662-23-93 05:01:00 Test Item Value Reference Range Interpretation Comments A/G Ratio (test code = A/G Ratio) 1.0 1 0.7-1.6 [facility]annCHEM EDTEN9642-60-25 05:01:004.1[facility]annCHEM PANEL 2019-01-22 05:01:006.90[facility] GpwxgojMAIFTQZPKBEIK6556-79-31 05:01:00Negative *NA*(01/22/19 12:01 AM)[facility] UntywlrRZNVKJTZSI9887-00-58 05:01:000.1[facility] PbxnagqFSWXUMAJKU4411-32-32 05:01:000.7[facility] XwfkgfwURHNBQLVJL5681-16-63 05:01:000.0[facility] HljuhqdRIRDNIXZIL9534-15-23 05:01:000.0[facility] FHKNSQPBXW4629-79-00 05:01:000.9[facility] FugdmodUHUGLVTZEW9436-57-28 05:01:008.6 [facility] PuwhutuGHPPMBJVMS7514-28-80 05:01:000.6[facility]annHEMATOLOGY 2019-01-22 05:01:0086.5[facility] EavlyuzSQRIFDDJAF1337-57-86 05:01:005.7[facility] OjbgaffZSKLHYKSVJ6301-38-78 05:01:006.9[facility] SnvthjaMEWBHOIWCW6800-35-13 05:01:009.9[facility] HazbbpfBCHXUALRLC3885-78-02 05:01:0032.8[facility] OLCILAQMSP6043-51-49 05:01:0013.6[facility] MoxytyvURNHGZWRUY5696-44-42 05:01:00 443[facility] PaqyftdLIEYZJOBNY2734-06-06 05:01:007.3[facility]annHEMATOLOGY 2019-01-22 05:01:0014.0[facility] GilqpssHBQYORNVZG8102-77-19 05:01:004.85[facility] WjjlptmTCVBZECOVJ7287-41-89 05:01:0042.7[facility] GvvmuigAXXNINZMXG7557-28-86 05:01:00 Test Item Value Reference Range Interpretation Comments MCH (test code = MCH) 29.0 pg 27.0-31.0 [facility] OmcgntbSBDYFGMMKL7593-74-70 05:01:0088.2[facility]annHEMATOLOGY 2019-01-22 05:01:00 Test Item Value Reference Range Interpretation Comments INR (test code = INR) 0.96 1 0.85-1.17 [facility]ZbozknsANJHMZGKII2389-99-53 05:01:00 Test Item Value Reference Range Interpretation Comments PT (test code = PT) 12.6 s 12.0-14.7 [facility] LingfkzOVWWDBKSUP4320-22-98 05:01:00 Test Item Value Reference Range Interpretation Comments PTT (test code = PTT) 25.9 s 22.9-35.8 [facility] BANK ZOVXWRG8195-35-25 05:01:00Negative (01/22/19 12:01 AM) [facility]CARD[facility] QVSYWTB1249-46-38 05:01:00<0.02[facility] CARDIAC GEWMXHI8182-41-62 05:01:0049[facility] HermannCHEM EUJXY6814-15-47 05:01:000.6[facility] HermannCHEM JQRJH8958-39-34 05:01:48498Rblghiyz HermannCHEM QFCUW2512-31-89 05:01:004.0[facility] HermannCHEM PVBWL2312-76-99 05:01:0017 [facility]annCHEM MBRZR7053-44-08 05:01:0025[facility]annCHEM PANEL 2019-01-22 05:01:008.1[facility] HermannCHEM GHQYY8142-36-77 05:01:00 Test Item Value Reference Range Interpretation Comments B/C Ratio (test code = B/C Ratio) 20 1 6-25 [facility] HermannCHEM BUXFJ0673-46-73 05:01:00 Test Item Value Reference Range Interpretation Comments A/G Ratio (test code = A/G Ratio) 1.0 1 0.7-1.6 [facility] [id number] 05:01:004.1[facility]annCHEM PANEL 2019-01-22 05:01:006.90[facility] RnsekguVMPREBCICUCAJ2575-14-22 05:01:00Negative *NA*(01/22/19 12:01 AM)[facility] LecttaiEDYIJPGVLI7002-07-90 05:01:000.1[facility] TaxkhprHIVCLXRLWT0568-78-30 05:01:000.7[facility] QuoudmfKWHTWIXCYA0690-48-54 05:01:000.0[facility] AlvvetpKYWMFGOVPK4631-04-66 05:01:000.0[facility]is FLAYVGLJWJ9383-32-81 05:01:000.9[facility] GywqizfCSHMSRZLFQ7301-92-14 05:01:008.6 [facility] XmbkdukWUDDBUXBYI3417-06-58 05:01:000.6[facility]annHEMATOLOGY 2019-01-22 05:01:0086.5[facility] EqukubjDEHZBLPABT2734-98-48 05:01:005.7[facility] TzlfywoMCMJNXMTJU1736-99-54 05:01:006.9[facility] VxnappjEXWECSJGAD1422-17-92 05:01:009.9[facility] FkwaobhPTCAZINRZA0785-14-56 05:01:0032.8[facility] [place] IIYQLDANMX2413-46-95 05:01:0013.6[facility] VoqhihzTIS1T6912-45-40 14:36:00 Test Item Value Reference Range Interpretation [...] 0.00-0.01 N code = ETOHU) Comprehensive Metabolic Fdigf6633-01-55 14:36:00 Test Item Value Reference Range Interpretation [...] the [employer],http :[email or web address] ep.nih.gov Urinalysis Wacklwyw3174-91-15 14:32:00 Test Item Value Reference Range Interpretation Comments Color (test code = COLOR) Yellow Yellow,Straw,Pl N yellow Clarity (test code = Clear Clear N CLAR) Specific [place] (test 1.024 1.001-1.035 N code = SPGR) [...] code = Few /HPF BACT) CBC with Fmfbpgedxgxb5502-27-19 14:21:00 Test Item Value Reference Range Interpretation [...] code = ALYMPH) 3.0 K/cumm 0.5-4.6 N [place] Abs (test code = AMONO) 0.5 K/cumm 0.0-1.2 N Eos Abs (test code = AEOS) 0.19 K/cumm 0.00-0.74 N Baso Abs (test code = ABASO) 0.1 K/cumm 0.00-0.21 N
--- NOTE | 2021-10-17 01:40 | ER ---
Nurse's Notes [facility] Name: Tiffany Quinn Age: 51 yrs Sex: Female : 1970 Arrival Date: 10/17/2021 Time: 00:18 Bed 17 Private MD: Diagnosis: Migraine without aura, not intractable Presentation: 10/17 00:53 Chief complaint: Patient states: Reports HALE and nausea not relieved after ER visit lp1 earlier today; continued pain to right great toe. Coronavirus screen: At this time, the client does not indicate any symptoms associated with coronavirus-19. Ebola Screen: No symptoms or risks identified at this time. Initial Sepsis Screen: Does the patient meet any 2 criteria? No. Patient's initial sepsis screen is negative. Does the patient have a suspected source of infection? No. Patient's initial sepsis screen is negative. Risk Assessment: Do you want to hurt yourself or someone else? Patient reports no desire to harm self or others. Onset of symptoms was October 17, 2021. 00:53 Method Of Arrival: Ambulatory lp1 00:53 Acuity: MANUEL 4 lp1 Triage Assessment: 01:44 General: Appears in no apparent distress. Behavior is anxious. Pain: Complains of pain mr2 in right foot. GI: Reports nausea. 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 - Social history:: Smoking status: Patient denies any tobacco usage or history of. - Family history:: not pertinent. - Hospitalizations: : No recent hospitalization is reported. Screenin:54 Abuse screen: Denies threats or abuse. Denies injuries from another. Nutritional lp1 screening: No deficits noted. Tuberculosis screening: No symptoms or risk factors identified. Fall Risk None identified. Assessment: 01:44 GI: Abdomen is non-distended. mr2 Vital Signs: 00:53 BP 118 / 80; Pulse 94; Resp 18; Temp 98.1; Pulse Ox 100% on R/A; Weight 71.67 kg; lp1 Height 5 ft. 3 in. (160.02 cm); 00:53 Body Mass Index 27.99 (71.67 kg, 160.02 cm) lp1 [place] Coma Score: 01:35 Eye Response: spontaneous(4). Verbal Response: oriented(5). Motor Response: obeys rn commands(6). Total: 15. ED Course: 00:18 Patient arrived in ED. ja2 00:54 Triage completed. lp1 00:54 Arm band placed on. lp1 00:54 Patient has correct armband on for positive identification. lp1 01:30 Manuel Ward MD is Attending Physician. rn 01:40 Teddy Coleman, JIGNA is Primary Nurse. mr2 01:44 No provider procedures requiring assistance completed. Patient did not have IV access mr2 during this emergency room visit. Administered Medications: 01:59 Drug: HYDROcodone-acetaminophen 5 mg-325 mg 1 tabs Route: PO; mr2 01:59 Drug: Promethazine 25 mg Route: PO; mr2 Outcome: 01:40 Discharge ordered by . rn 02:00 Discharged to home ambulatory. mr2 02:00 Condition: stable 02:00 Discharge instructions given to patient, Instructed on discharge instructions. 02:25 Patient left the ED. mr2 Signatures: Manuel Ward MD MD rn Pena, Laura, RN RN lp1 Niya Rodriguez ja2 Teddy Coleman RN RN mr2
--- NOTE | 2021-10-17 01:40 | EDPHYS ---
Physician Documentation [facility] Name: Tiffany Quinn Age: 51 yrs Sex: Female : 1970 Arrival Date: 10/17/2021 Time: 00:18 Bed 17 Private MD: ED Physician Manuel Ward HPI: 10/17 01:35 This 51 yrs old Female presents to ER via Ambulatory with complaints of Headache, rn nausea. 01:35 The patient presents to the emergency department with nausea. rn 01:35 The patient complains of pain to the top of head and forehead. The patient describes rn the headache as aching. Onset: The symptoms/episode began/occurred at an unknown time. Associated signs and symptoms: Pertinent positives: nausea, Pertinent negatives: altered mental status, fever, neck stiffness. Severity of symptoms: At its worst the pain was moderate, in the emergency department the pain is unchanged. Headache History: The patient has had previous headaches and this one is similar to previous episodes. The symptoms are alleviated by nothing. the symptoms are aggravated by nothing. The patient has experienced similar episodes in the past. The patient has been recently seen at the [facility] Emergency Department. Patient reports some improvement after Fioricet earlier for headache but headache returned. Came back in to see if she can get another Fioricet and some Phenergan. States has Zofran and Phenergan at home but is scared to take one unless she is directed by physician. No new symptoms. No fever. No trauma.. 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 - Social history:: Smoking status: Patient denies any tobacco usage or history of. - Family history:: not pertinent. - Hospitalizations: : No recent hospitalization is reported. ROS: 01:35 Constitutional: Negative for fever, chills, and weight loss, Eyes: Negative for injury, rn pain, redness, and discharge, Neck: Negative for injury, pain, and swelling, Cardiovascular: Negative for chest pain, palpitations, and edema, Respiratory: Negative for shortness of breath, cough, wheezing, and pleuritic chest pain, Abdomen/GI: Positive for nausea Back: Negative for injury and pain, MS/Extremity: Negative for injury and deformity, Skin: Negative for injury, rash, and discoloration, Neuro: Positive for headache Exam: 01:35 Constitutional: This is a well developed, well nourished patient who is awake, alert, rn and in no acute distress. Head/Face: Normocephalic, atraumatic. Neck: Trachea midline, no masses palpated, and no cervical lymphadenopathy. Supple, full range of motion without nuchal rigidity, or vertebral point tenderness. No Meningismus. Cardiovascular: Regular rate and rhythm. No pulse deficits. Respiratory: No increased work of breathing, no retractions or nasal flaring. MS/ Extremity: Pulses equal, no cyanosis. Neurovascular intact. Full, normal range of motion. Equal circumference. Neuro: Awake and alert, GCS 15, oriented to person, place, time, and situation. Cranial nerves II-XII grossly intact. Motor strength 5/5 in all extremities. Sensory grossly intact. Cerebellar exam normal. Normal gait. Vital Signs: 00:53 BP 118 / 80; Pulse 94; Resp 18; Temp 98.1; Pulse Ox 100% on R/A; Weight 71.67 kg; lp1 Height 5 ft. 3 in. (160.02 cm); 00:53 Body Mass Index 27.99 (71.67 kg, 160.02 cm) lp1 [place] Coma Score: 01:35 Eye Response: spontaneous(4). Verbal Response: oriented(5). Motor Response: obeys rn commands(6). Total: 15. MDM: 01:30 Patient medically screened. rn 01:35 Differential diagnosis: migraine, tension headache, vasomotor headache. Data reviewed: rn vital signs, nurses notes, old medical records, and as a result, I will discharge patient. Counseling: I had a detailed discussion with the patient and/or guardian regarding: the historical points, exam findings, and any diagnostic results supporting the discharge/admit diagnosis, the need for outpatient follow up, to return to the emergency department if symptoms worsen or persist or if there are any questions or concerns that arise at home. Special discussion: I discussed with the patient/guardian in detail that at this point there is no indication for admission to the hospital. It is understood, however, that if the symptoms persist or worsen the patient needs to return immediately for re-evaluation. Administered Medications: 01:59 Drug: HYDROcodone-acetaminophen 5 mg-325 mg 1 tabs Route: PO; mr2 01:59 Drug: Promethazine 25 mg Route: PO; mr2 Disposition Summary: 10/17/21 01:40 Discharge Ordered Location: Home rn Problem: new rn Symptoms: have improved rn Condition: Stable rn Diagnosis - Migraine without aura, not intractable rn Followup: rn - With: Private Physician - When: As needed - Reason: Recheck today's complaints, Re-evaluation by your physician Discharge Instructions: - Discharge Summary Sheet rn - Migraine Headache rn Forms: - Medication Reconciliation Form rn - Thank You Letter rn - Antibiotic rn radiology - Prescription Opioid Use rn Signatures: Manuel Ward MD MD rn Pena, Laura, RN RN lp1 Teddy Coleman RN RN mr2
[2021-10-17] MEDS ORDERED: HYDROCODONE/APAP 5/325 MG TAB ONE (01:48)
[2021-10-17] MEDS ORDERED: PROMETHAZINE 25 MG TABLET ONE (01:49)
[2021-10-17 02:39] VITALS: BP 118/80; TEMP 98.1; O2SAT 100
== END 2021-10-17 02:25 | disposition home or self-care (01) ==
LOC: ER 00:16
DX: G43.009 Migraine without aura, not intractable, without status migrainosus (principal); Z88.5 Allergy status to narcotic agent; Z88.8 Allergy status to other drugs, medicaments and biological substances
CPT/HCPCS: 99283; Q0169

== ENCOUNTER 2021-10-17 16:14 | Emergency (ER) | payer OTHER ==
--- OUTSIDE RECORDS SUMMARY | 2021-10-17 16:21 | XMS REPORT | Continuity of Care Document ---
:1970 Author Organization [facility] t Address [address] [place] [address] Care Team Providers Name Role Phone UNKNOWN [...] Policy Number Effective Date Expiration Date S [facility] OF [place] - [id number] 2020 [employer] 00:00:00 (MEDICARE REPLACEMENT/ADVANT AGE - HMO) Problems Condition Condition Condition Status Onset Resolution Last Treating Co mments Source Name Details Category Date Date Treatment Clinician Date LOW PB Diagnosis Active 2019-01-22 Mem oria 01-21 01:52:00 l LOW PB 00:00: Yonis 00 Active 01/21/2019 [place] INFECTIOUS Diagnosis Active 2019-02-06 Memoria GASTROENTE 01-21 08:58:00 l RITIS AND 00:00: [place] COLITIS INFECTIOUS 00 GASTROENTE RITIS AND COLITIS Active 01/21/2019 [facility] Irregular Irregular Disease Active Uni vers menstrual menstrual 8-15 ity of cycle cycle 00:00: [address] Skin Skin Disease Active Univers lesion lesion 8-15 ity of 00:00: [address] Psychiatri Psychiatri Disease Active U nivers c disorder c disorder 8-15 it y of 00:00: [address] Well woman Well woman Disease Active U nivers exam with exam with 8-15 ity of routine routine 00:00: [place] gynecologi gynecologi 00 Me dical nicky exam [...] [facility] Phenerga Phenerga Active [place] win[place] Social History Social Habit Start Date Stop Date Quantity Comments Source History of Cigarette Smoker Universi ty of tobacco use [facility] Tobacco Comment 2-3 cigs a day [facility] Exposure to Not sure [place] of SARS-CoV-2 [facility] (event) [place] Tobacco use and 2016-06-08 2016-06-08 [facility]:00 00:00:00 [facility] Alcohol intake 2016-06-08 2016-06-08 0 /d University of 00:00:00 00:00:00 [facility] Sex Assigned At [birth year] Universit y of 00:00:00 00:00:00 [facility] Smoking Status Start Date Stop Date Source Social History 2019-01-22 05:00:12 [facility] Her urena Current some day smoker 2016-06-08 [facility] Medications Ordered Filled Start Stop Current Ordering Indication Dosage Frequency Signature Comments Components Source Medication Medication Date Date Medication? Clinician (SIG) Name Name cefTRIAXone 2020-10- No 1000mg 1,000 mg, Univers (ROCEPHIN) 17 11-17 IV ity of 1,000 mg in 08:30: 08:01 [place], [place] NaCl 0.9% 00 :00 ONCE, 1 [...] 09/09/21 at 2330, RANDA amoxicillin 2020-10 Yes [id number] 500mg Take 1 Univers 500 mg 11-10 capsule by ity of capsule 00:00: mouth 3 [place] 00 (three) Medical times Branch daily. ondansetron 2019-10- No 4mg 4 mg, [facility] ers (ZOFRAN-ODT 12-01 Oral, ity of ) 15:15: 14:16 ONCE, 1 [place] disintegrat 00 :00 dose, Mon Med ical ing tablet 09/30/20 at [facility] 4 mg 0915, Routine ondansetron 2019-10- No 4mg [address] mg, [facility] ers (ZOFRAN-ODT 12-01- Oral, ity of ) 14:30: 13:32 ONCE, 1 [place] disintegrat 00 :00 dose, Mon Med ical ing tablet 09/30/20 at [facility] nc 4 mg 0830, Routine ondansetron 2019-10 Yes [id number] 4mg Take 1 Univers 4 mg 2-07 tablet by ity of disintegrat 00:00: mouth [place] ing tablet 00 every 8 Medica l (eight) Branch hours as needed for Nausea and Vomiting (N/V). ondansetron 2019-10 Yes [id number] 4mg Take 1 Univers 4 mg 2-07 tablet by ity of disintegrat 00:00: mouth [place] ing tablet 00 every 8 Medica l (eight) Branch hours as needed for Nausea and Vomiting (N/V). ondansetron 2019-10 Yes [id number] 4mg Take 1 Univers 4 mg 2-07 tablet by ity of disintegrat 00:00: mouth [place] ing tablet 00 every 8 Medica l (eight) Branch hours as needed for Nausea and Vomiting (N/V). ondansetron 2019-10 Yes [id number] 4mg Take 1 Univers 4 mg 2-07 tablet by ity of disintegrat 00:00: mouth [place] ing tablet 00 every 8 Medica l (eight) Branch hours as needed for Nausea and Vomiting (N/V). ciprofloxac 2019 Yes 500 mg = 1 Memoria in 500 mg 4-04 tab, PO, l oral tablet 17:35: [id number], X Yonis 00 4 day, # 8 [...] 4-04 tab, PO, l oral tablet 17:35: [id number], X [place] 00 4 day, # 8 tab, 0 [...] 4-03 (Same as: l 13:26: K-Dur 20) [place] "Do Not Crush" Give with food and [...] moria 402 Route: PO, l 14:00: QAM, [place] 00 Dosing Weight 75, kg, Start date: [...] Memoria 4- (Same as: l 15:00: Flagyl) [place] 00 Take with food/ avoid alcohol Cipro No Notes: February Memori a 4- interfere l 15:00: w/enteral [place] 00 feedings - Take 1 hr before [...] PO, ONCE, l mEq oral 14:20: 0 [place] tablet, 00 Refill(s) extended release Metronidazo No 500 mg, Mem oria le 500 MG 4-01 PO, l Oral Tablet 14:20: [id number], 0 H [place] [Flagyl] 00 Refill(s) Ciprofloxac No 500 mg, Mem oria in 500 MG 01 PO, l Oral Tablet 14:20: [id number], 0 [place] [Cipro] 00 Refill(s) potassium Yes 40 mEq, Memor ia chloride 20 -01 PO, ONCE, l mEq oral 14:20: 0 [place] tablet, 00 Refill(s) extended release Metronidazo No 500 mg, Mem oria le 500 MG 4-01 PO, l Oral Tablet 14:20: [id number], 0 H [place] [Flagyl] 00 Refill(s) Ciprofloxac No 500 mg, Mem oria in 500 MG 4-01 PO, l Oral Tablet 14:20: [id number], 0 [place] [Cipro] 00 Refill(s) Potassium No [...] tab, PO, l Tablet 21:08: BID, 0 [place] [Risperdal] 00 Refill(s) Strattera Yes 0.5 mg/kg, [...] tab, PO, l Tablet 21:08: BID, 0 [place] [Risperdal] 00 Refill(s) Zosyn No Notes: Memoria [...] oria 3-31 to exceed l 15:03: 400mg/day. [place] 00 (Same As: Ultram) Tramadol No Notes: [...] 01-22 Route: IM, l 09:47: Drug form: [place] 00 PDR/INJ, PRN, Dosing Weight 75.994, kg, [...] 01-22 Route: IM, l 09:47: Drug form: [place] PDR/INJ, PRN, Dosing Weight 75.994, kg, PRN Blood Glucose Results, Start date: 01/22/19 4:47:00 CDT, Duration: 30 day, Stop date: 02/21/19 4:46:00 CDT Dextrose 2018- No 12.5 gm, Memor ia 50% Syringe 3-31 25 mL, l 09:47: Route: [place] 00 IVP, Drug Form: INJ, Dosing Weight [...] moria IV 3-31 1,000 l 08:52: ml/hr, [place] 00 Infuse Over: 1 hr, Route: IV, [...] 0.9% 3-31 Same as: l 04:52: BD [place] Posiflush Sterile NS (Bolus) No 1,000 mL, Me moria IV 3-31 1,000 l 04:51: ml/hr, [place] 00 Infuse Over: 1 hr, Route: IV, 1,000, Drug form: INJ, ONCE, Priority: STAT, Dosing Weight 75.994 kg, Start date: 01/21/19 23:51:00 CDT, Stop date: 01/21/19 23:51:00 CDT NS (Bolus) No 1,000 mL, Me moria IV 01-22 1,000 l 04:51: ml/hr, [place] 00 Infuse Over: 1 hr, Route: IV, [...] HYDROBROMID 8-15 mouth. ity of E 19:02: [place] (CITALOPRAM 27 Medical ORAL) Branch ibuprofen 2016-0 Yes 200mg Take 200 Uni vers (ADVIL) 200 8-15 mg by ity of mg tablet 14:02: mouth [place] [address] every 6 Medical (six) Branch hours as needed. CLONAZEPAM 2016-0 Yes Take by Uni vers (KLONOPIN 8-15 mouth. ity of ORAL) 14:02: [address] Branch CITALOPRAM 2016-0 Yes Take by Uni vers HYDROBROMID 8-15 mouth. ity of E 14:02: [place] (CITALOPRAM 27 Medical ORAL) Branch ibuprofen 2016-0 Yes 200mg Take 200 Uni vers (ADVIL) 200 8-15 mg by ity of mg tablet 14:02: mouth [place] [address] every 6 Medical (six) Branch hours as needed. CLONAZEPAM 2016-0 Yes Take by Uni vers (KLONOPIN 8-15 mouth. ity of ORAL) 14:02: [address] Branch CITALOPRAM 2016-0 Yes Take by Uni vers HYDROBROMID 8-15 mouth. ity of E 14:02: [place] (CITALOPRAM 27 Medical ORAL) Branch ibuprofen 2016-0 Yes 200mg Take 200 Uni vers (ADVIL) 200 8-15 mg by ity of mg tablet 14:02: mouth [place] [address] every 6 Medical (six) Branch hours as needed. CLONAZEPAM 2016-0 Yes Take by Uni vers (KLONOPIN 8-15 mouth. ity of ORAL) 14:02: [place] [address] Medical Branch CITALOPRAM 2016-0 Yes Take by Uni vers HYDROBROMID 8-15 mouth. ity of E 14:02: [place] (CITALOPRAM 27 Medical ORAL) Branch misoprostol 2016-0 [...] H it y of en-caff 00:00: PRN. [place] (ESGIC) 00 Medical 50-325-40 Branch mg tablet butalbital- 2015-0 Yes TK 1 TO 2 U nivers acetaminoph 8-01 T PO Q 8 H it y of en-caff 00:00: PRN. [place] (ESGIC) 00 Medical 50-325-40 Branch mg tablet butalbital- 2015-0 Yes TK 1 TO 2 U nivers acetaminoph 8-01 T PO Q 8 H it y of en-caff 00:00: PRN. [place] (ESGIC) 00 Medical 50-325-40 Branch mg tablet butalbital- 2016-0 Yes TK 1 TO 2 U nivers acetaminoph 8-01 T PO Q 8 H it y of en-caff 00:00: PRN. [place] (ESGIC) 00 Medical 50-325-40 Branch mg tablet dextroamphe 0 Yes TK 1 T PO U nivers tamine-amph 7-20 BID. ity of etamine 00:00: [place] (ADDERALL) 00 Medical 20 mg Branch tablet dextroamphe Yes TK 1 T PO U nivers tamine-amph 7-20 BID. ity of etamine 00:00: [place] (ADDERALL) 00 Medical 20 mg Branch tablet dextroamphe Yes TK 1 T PO U nivers tamine-amph 7-20 BID. ity of etamine 00:00: [place] (ADDERALL) 00 Medical 20 mg Branch tablet [...] 08:01:00 138 mm[Hg] Univer sity of [facility] Diastolic blood 2021-09-10 08:01:00 97 mm[Hg] Unive rsity of [facility] Heart rate 2021-09-10 08:01:00 87 /min [facility] Respiratory rate 2021-09-10 08:01:00 20 /min [facility] saturation in 2021-09-10 08:01:00 98 /min University of Arterial blood by [place] [facility] Pulse oximetry Branch Body temperature 2021-09-10 04:28:[address] [facility] Body height 2021-09-10 04:26:00 154.9 cm [facility] Body weight 2021-09-10 04:26:00 81.647 kg [facility] BMI 2021-09-10 04:26:00 34.01 kg/m2 [facility] Systolic blood 2021-09-09 20:06:00 150 mm[Hg] Univer sity of [facility] Diastolic blood 2021-09-09 20:06:00 89 mm[Hg] Unive rsity of [facility] Heart rate 2021-09-09 20:06:00 108 /min [facility] Body temperature 2021-09-09 20:06:[address] [facility] Respiratory rate 2021-09-09 20:06:00 18 /min [facility] Oxygen saturation in 2021-09-09 20:06:00 99 /min University of Arterial blood by [email or web address] nicky Pulse oximetry Branch Body weight 2021-09-09 20:05:00 81.647 kg Universi ty of [place] [facility] BMI 2021-09-09 20:05:00 32.40 kg/m2 Universi ty [facility] [place] [facility] Systolic blood 2020-09-30 14:00:00 126 mm[Hg] Univer sity of pressure [place] [facility] Diastolic blood 2020-09-30 14:00:00 84 mm[Hg] Unive rsity of pressure [place] [facility] Heart rate 2020-09-30 14:00:00 79 /min Universi ty of [place] [facility] Oxygen saturation in 2020-09-30 14:00:00 98 /min University of Arterial blood by [facility] nicky Pulse oximetry Branch Body temperature 2020-09-30 13:26:00 37.22 Ruthann Univ ersity of [place] [facility] Respiratory rate 2020-09-30 13:26:00 16 /min Univ ersity [facility] [place] [facility] Body weight 2020-09-30 13:26:00 72.576 kg Universi ty [facility] [place] [facility] BMI 2020-09-30 13:26:00 28.80 kg/m2 Universi ty [facility] [place] [facility] Systolic blood 2020-09-30 14:00:00 126 mm[Hg] Univer sity of pressure [place] [facility] Diastolic blood 2020-09-30 14:00:00 84 mm[Hg] Unive rsity of pressure [place] [facility] Heart rate 2020-09-30 14:00:00 79 /min Universi ty [facility] [place] [facility] Oxygen saturation in 2020-09-30 14:00:00 98 /min University of Arterial blood by [facility] nicky Pulse oximetry Branch Body temperature 2020-09-30 13:26:00 37.22 Ruthann Univ ersity of [place] [facility] Respiratory rate 2020-09-30 13:26:00 16 /min Univ ersity [facility] [place] [facility] Body weight 2020-09-30 13:26:00 72.576 kg Universi ty [facility] [place] [facility] BMI 2020-09-30 13:26:00 28.80 kg/m2 [facility]i ty [facility] [place] [facility] Temperature Oral (F) 2019-01-28 01:16:00 98.6 F [facility] Yonis Systolic (mm Hg) 2019-01-28 01:16:00 Estrada rial [place] Diastolic (mm Hg) 2019-01-28 01:16:00 Mem orial [place] Heart Rate 2019-01-28 01:16:00 [facility] [place] Respitory Rate 2019-01-28 01:16:00 Memori al [place] Systolic (mm Hg) 2019-01-27 20:42:00 Estrada rial [place] Diastolic (mm Hg) 2019-01-27 20:42:00 Mem orial Yonis Heart Rate 2019-01-27 20:42:00 [facility] [place] Respitory Rate 2019-01-27 20:42:00 Memori al [place] Temperature Oral (F) 2019-01-27 20:42:00 98.5 F [facility] [place] Systolic (mm Hg) 2019-01-27 17:00:00 Estrada rial Yonis Diastolic (mm Hg) 2019-01-27 17:00:00 Mem orial [place] Temperature Oral (F) 2019-01-27 17:00:00 98.5 F [facility] [place] Heart Rate 2019-01-27 17:00:00 [facility] [place] Respitory Rate 2019-01-27 [facility]:00 [facility] [place] Height 2019-01-22 14:35:00 157.48 cm [facility] BMI Calculated 2019-01-22 14:35:00 [facility] [place] Weight 2019-01-22 14:35:00 [facility] [place] Weight 2019-01-22 04:34:00 [facility] Procedure Date / Time Performing Clinician Source Performed URINALYSIS 2021-09-10 06:03:00 Neena Bradford [facility] URINE DRUG (IMMUNOASSAY) 2021-09-10 06:03:00 Neena Bradford [facility] nc SCREEN W/O REFLEX XR CHEST 1 VW 2021-09-10 04:57:30 Neena Bradford [facility] CREATINE KINASE 2021-09-10 04:39:00 Neena Bradford [facility] MAGNESIUM 2021-09-10 04:39:00 Neena Bradford [facility] TROPONIN I 2021-09-10 04:39:00 Neena Bradford [facility] COMP. METABOLIC PANEL 2021-09-10 04:39:00 Neena Bradford [facility] ([id number]) Medical [place] CBC WITH DIFF 2021-09-10 04:39:00 Neena Bradford [facility] PROTHROMBIN TIME / INR 2021-09-10 04:39:[address] [facility] ACTIVATED PARTIAL 2021-09-10 04:39:00 Neena Bradford [facility] THRMPLAS [facility] N-TERMINAL PRO-BNP 2021-09-10 04:39:00 Neena Bradford [facility] COVID-19 (ID NOW RAPID 2021-09-10 04:39:[address] [facility] [place] TESTING) Medical Branch TROPONIN I 2021-09-09 21:49:00 [facility] COMP. METABOLIC PANEL 2021-09-09 21:49:00 [facility] Luanne [facility] ([id number]) Medical Branch LITHIUM 2021-09-09 21:49:00 [facility] CBC WITH DIFF 2021-09-09 21:49:00 [facility] CONSENT/REFUSAL FOR 2021-09-09 19:51:22 Doctor Unassigned, No Un [facility] DIAGNOSIS AND TREATMENT Name [facility] Branch URINALYSIS 2020-09-30 13:27:00 [place], [facility] ADC,CLC OR LCC ONLY - 2020-09-30 13:27:00 JacksonChuy aleman [facility] INFLUENZA A & B DIRECT Medical B ranch ANTIGEN COVID-19 (ID NOW RAPID 2020-09-30 13:27:00 Turner Chuy [facility] TESTING) Medical Branch Encounters Start End Encounter Admission Attending Care Care Encounter Source Date/Time Date/Time Type Type Clinicians Facility Department ID 2019-01-22 Inpatient E [facility] MED [id number] [facility] W 04:39:00 2021-09-09 2021-09-10 Emergency DENIA Bradford [id number] Univers 22:20:00 03:02:00 Neena WALSH [id number] i ty of [place] 4.2.7.2.686 [facility] [id number] [facility] nicky 084 Branch 2021-09-09 2021-09-10 Emergency X DENIA BRADFORD ERT [id number] Univers 22:20:00 03:02:00 NEENA tubbs [facility] 2021-09-09 2021-09-10 Emergency X [facility]Z [facility] ERT [id number] Univers 22:20:00 03:02:00 NEENA tubbs [facility] 2021-09-09 2021-09-09 [facility] [id number] Univers 14:07:00 17:35:00 Luanne WALSH 350.1.13.10 i ty of [place] 4.2.7.2.686 [facility] [id number] [address] 2021-09-09 2021-09-09 Orders Doctor BELKYS [id number] Univers 00:00:00 00:00:00 Only Unassigned, LANA 350.1.13.10 ity of [place] [facility] 4.2.7.2.686 Joe [id number] [address] 2020-09-30 2020-09-30 [facility] [id number] Univers 07:22:00 08:18:00 Chuy Walsh 350.1.13.10 i ty of [place] 4.2.7.2.686 [facility] [id number] [address] 2020-09-30 2020-09-30 Emergency [facility] [id number] 07:22:00 08:18:00 Chuy Walsh 350.1.13.10 [place] 4.2.7.2.686 [place] [id number] [facility] 2020-09-30 2020-09-30 Emergency X [facility] ERT [id number] Univers 07:22:00 07:22:00 CHUY tubbs [facility] 2020-04-05 2020-04-05 Outpatient Humaira-Mbayo VFP [facility] [id number] 05:44:00 05:44:00 _A_AH 18413 Family Practic e 2020-04-05 2020-04-05 Outpatient Humaira-Mbayo VFP VFP [id number] 05:44:00 05:44:00 _A_AH 96918 Family Practic e 2020-04-05 2020-04-05 Outpatient Humaira-Alekso VFP VFP [id number] [facility] 05:44:00 05:44:00 _A_AH [id number] Family Practic e 2020-04-05 2020-04-05 Outpatient Humaira-Alekso VFP VFP [id number] [facility] 05:44:00 05:44:00 _A_AH 53269 Family Practic e 2020-03-04 2020-03-14 Inpatient 3 Ronni Eldridge [facility] [id number] 15:38:00 15:25:00 Chente [facility] 2019-12-13 2019-12-13 Outpatient Humaira-Alekso VFP VFP [facility] 07:22:00 07:22:00 _A_ [id number] Family Practic e 2019-01-22 2019-01-28 Inpatient [facility] [id number] Memoria 04:33:00 04:40:00 martin [place] 00 l [facility] 2018-02-21 2018-02-20 [facility] [id number] 14:48:00 13:18:00 [facility] Results Test Description Test Time Test Comments Results Result Comments Source TROPONIN I 2021-09-10 05:26:53 Test Item Value Reference Range Interpretation Comme nts TROPONIN I (test code = 0.003 ng/mL See_Comment [Au tomated message] The [id number]) system which ge nerated this result tra [...] biotin. Lab Interpretation Normal (test code = 53562-1) [facility] [id number] 05:24:16 Test Item Value Reference Range Interpretation Comments NT-proBNP (test code 35 pg/mL See_Comment [Autom ated = 3655784473) message] The system which generated this result transmitted reference range : <=125. The reference range was not used to interpret this result as normal/abnormal . PERRY (test code = PERRY) Biotin has been reported to cause a negative bias, interpret results relative to patient's use of biotin. Lab Interpretation Normal (test code = 42851-7) [facility]2021-11-17 05:16:51 Test Item Value Reference Range Interpretation Comments MAGNESIUM (test code = 4771224223) 1.8 mg/dL 1.7-2.4 Lab Interpretation (test code = Normal 01944-4) [facility] METABOLIC PANEL ([id number])2021-09-10 05:16:31 Test Item Value Reference Range Interpretation Comments NA (test code = 139 mmol/L 135-145 2555580229) K (test code = 4.0 mmol/L 3.5-5.0 4898968325) CL (test code = 108 mmol/L 98-108 8224972714) CO2 TOTAL (test code 25 mmol/L 23-31 = 6573086901) AGAP (test code = 2-16 1804065303) BUN (test code = 14 mg/dL 7-23 7577520707) GLUCOSE (test code = 88 mg/dL 70-110 6425604923) CREATININE (test code 0.89 mg/dL 0.50-1.04 = 7395996618) TOTAL BILI (test code 0.5 mg/dL 0.1-1.1 = 5448918024) CALCIUM (test code = 10.3 mg/dL 8.6-10.6 6902122544) T PROTEIN (test code 6.9 g/dL 6.3-8.2 = 1952765278) ALBUMIN (test code = 4.3 g/dL 3.5-5.0 7415765920) ALK PHOS (test code = 72 U/L 34-122 4644978490) ALTv (test code = 17 U/L 35 1742-6) AST(SGOT) (test code 29 U/L 13-40 = 3918370934) eGFR (test code = mL/min/1.73m2 2113292630) PERRY (test code = PERRY) Association of [...] or urine or abnormalities in imaging tests). [facility]AT[facility] [id number] 05:16:16 Test Item Value Reference Range Interpretation Comments CK (test code = 2436550238) 267 U/L 33-194 H Lab Interpretation (test code = Abnormal 24604-8) [facility] PARTIAL THRMPLAS [id number] 05:05:32 Test Item Value Reference Range Interpretation [...] seconds. Lab Interpretation Normal (test code = 40277-2) [facility]PROTHROMBIN TIME / [id number] 05:03:30 Test Item Value Reference Range Interpretation [...] tions. Lab Interpretation (test Normal code = 93182-2) [facility]way[facility] WITH [id number] 04:57:13 Test Item Value Reference Range Interpretation Comments WBC (test code = See_Comment [Automated 8690-2) message] The sy stem which generated this result transmitted reference range : 4.30 - 11.10 10*3/?L. The reference range was not used to interpret this result as normal/abnormal . RBC (test code = See_Comment [Automated 269-8) message] The sy stem which generated this [...] RDW-SD (test code = 41.2 fL 39.0-49.9 13329-6) RDW-CV (test code = 13.0 % 12.0-15.5 788-0) PLT (test code = See_Comment H [Automated 777-3) message] The sy stem which generated this result transmitted reference range : 166 - 358 10*3/ ?L. The reference r katie was not used to interpret this result as normal/abnormal . MPV (test code = 9.6 fL 9.5-12.9 07713-8) NRBC/100 WBC (test See_Comment [Automat ed code = 5283214995) message] The system which generated this result transmitted reference range : 0.0 - 10.0 /100 WBCs. The refer ence range was not u sed to interpret th is result as normal/abnormal . NRBC x10^3 (test code <0.01 See_Comment [Auto mated = 8446139529) message] The s ystem which generated this result transmitted reference range : 10*3/?L. The reference range was not used to interpret this result as normal/abnormal . GRAN MAT (NEUT) % 61.9 % (test code = 770-8) IMM GRAN % (test code 0.30 % = 7949657303) LYMPH % (test code = 26.0 % 736-9) MONO % (test code = 9.5 % 5905-5) EOS % (test code = 1.6 % 713-8) BASO % (test code = 0.7 % 706-2) GRAN MAT x10^3(ANC) 5.91 10*3/uL 1.88-7.09 (test code = 8418812896) IMM GRAN x10^3 (test 0.03 10*3/uL 0.00-0.06 code = 5876351711) LYMPH x10^3 (test code 2.48 10*3/uL 1.32-3.29 = 731-0) MONO x10^3 (test code 0.91 10*3/uL 0.33-0.92 = 742-7) EOS x10^3 (test code = 0.15 10*3/uL 0.03-0.39 711-2) BASO x10^3 (test code 0.07 10*3/uL 0.01-0.07 = 704-7) Lab Interpretation Abnormal (test code = 90028-8) [facility]wayJESSICA [id number] 22:24:55 Test Item Value Reference Interpretation Comments Range TROPONIN I (test 0.002 ng/mL See_Comment [Automated code = 7595020302) message] The system which generated this result [...] biotin. Lab Interpretation Normal (test code = 76926-7) [facility]2021-11-16 22:24:34 Test Item Value Reference Range Interpretation Comments [place] (test code = <0.2 0.6-1.2 L 7460752435) PERRY (test code = PERRY) Toxic Range: ? Greater than 1.2 mmol/L Lab Interpretation (test Abnormal code = 76065-9) [facility]way[facility]. METABOLIC PANEL ([id number])2021-09-09 22:13:54 Test Item Value Reference Range Interpretation Comments NA (test code = 139 mmol/L 135-145 3411611816) K (test code = 4.0 mmol/L 3.5-5.0 6330180495) CL (test code = 105 mmol/L 98-108 2076998139) CO2 TOTAL (test code 26 mmol/L 23-31 = 2373664732) AGAP (test code = 2-16 3908823091) BUN (test code = 11 mg/dL 7-23 5082249469) GLUCOSE (test code = 109 mg/dL 70-110 2442972443) CREATININE (test code 0.71 mg/dL 0.50-1.04 = 2856496240) TOTAL BILI (test code 0.6 mg/dL 0.1-1.1 = 5530535367) CALCIUM (test code = 10.4 mg/dL 8.6-10.6 7255826325) T PROTEIN (test code 7.6 g/dL 6.3-8.2 = 6704000650) ALBUMIN (test code = 4.7 g/dL 3.5-5.0 7945122352) ALK PHOS (test code = 78 U/L 34-122 5775332989) ALTv (test code = 19 U/L 5-35 1742-6) AST(SGOT) (test code 28 U/L 13-40 = 9530152115) eGFR (test code = mL/min/1.73m2 8413485879) PERRY (test code = PERRY) Association of [...] or urine or abnormalities in imaging tests). [facility] WITH QHUC6710-24-86 22:03:32 Test Item Value Reference Range Interpretation [...] RDW-SD (test code = 40.2 fL 39.0-49.9 73266-0) RDW-CV (test code = 12.9 % 12.0-15.5 788-0) PLT (test code = See_Comment H [Automated 777-3) message] The sy stem which generated this result transmitted reference range : 166 - 358 10*3/ ?L. The reference r katie was not used to interpret this result as normal/abnormal . MPV (test code = 9.4 fL 9.5-12.9 L 79887-4) NRBC/100 WBC (test See_Comment [Automat ed code = 9311275076) message] The system which generated this result transmitted reference range : 0.0 - 10.0 /100 WBCs. The refer ence range was not u sed to interpret th is result as normal/abnormal . NRBC x10^3 (test code <0.01 See_Comment [Auto mated = 5099728875) message] The s ystem which generated this result transmitted reference range : 10*3/?L. The reference range was not used to interpret this result as normal/abnormal . GRAN MAT (NEUT) % 67.1 % (test code = 770-8) IMM GRAN % (test code 1.00 % = 4369529639) LYMPH % (test code = 21.4 % 736-9) MONO % (test code = 7.9 % 5905-5) EOS % (test code = 1.8 % 713-8) BASO % (test code = 0.8 % 706-2) GRAN MAT x10^3(ANC) 7.35 10*3/uL 1.88-7.09 H (test code = 5246714441) IMM GRAN x10^3 (test 0.11 10*3/uL 0.00-0.06 H code = 5693065052) LYMPH x10^3 (test code 2.34 10*3/uL 1.32-3.29 = 731-0) MONO x10^3 (test code 0.86 10*3/uL 0.33-0.92 = 742-7) EOS x10^3 (test code = 0.20 10*3/uL 0.03-0.39 711-2) BASO x10^3 (test code 0.09 10*3/uL 0.01-0.07 H = 704-7) Lab Interpretation Abnormal (test code = 42835-2) [facility] - INFLUENZA A & B DIRECT [id number] 14:04:00 Test Item Value Reference Range Interpretation Comments Influenza A (test code = 83714-8) Negative Negative Influenza B (test code = 94869-2) Negative Negative Lab Interpretation (test code = Normal 59686-9) [facility] (ID NOW RAPID TESTING)2020-09-30 14:03:00 Test Item Value Reference Range Interpretation Comments SARS-CoV-2 Rapid ID NOW Not Detected Not Detected (test code = 02404-4) PERRY (test code = PERRY) ID NOW COVID-19 Assay is an isothermal nucleic acid amplification test intended for the qualitative detection of nucleic acid from SARS-CoV-2 viral RNA in nasopharyngeal (DATA CONTROL ASSISTANT) specimens. It is used under Emergency [...] indicated. Lab Interpretation Normal (test code = 59836-2) [facility] 13:55:00 Test Item Value Reference Range Interpretation Comments APPEARANCE (test code = Hazy Clear A 1979531216) COLOR (test code = Yellow Yellow 4490939039) PH (test code = 4.8-8.0 1928885284) SP GRAVITY (test code = 1.003-1.030 8938488867) GLU U QUAL (test code = Normal Normal 0182671663) BLOOD (test code = Negative Negative 9787033711) KETONES (test code = 5 mg/dL Negative A 5614065525) PROTEIN (test code = Negative Negative 2887-8) UROBILIN (test code = 2.0 mg/dL Normal A 0341408755) BILIRUBIN (test code = Negative Negative 5687034371) NITRITE (test code = Negative Negative 6922315691) LEUK ROZINA (test code = 25/uL Negative A 0520960707) RBC/HPF (test code = See_Comment [Autom ated message] 8844140981) The system [employer] generated this result transmit ngozi reference range : 0 - 3 HPF. The refe rence range was not u sed to interpret th is result as normal/abnormal . WBC/HPF (test code = See_Comment [Autom ated message] 8673852502) The system [employer] generated this result transmit ngozi reference range : 0 - 5 HPF. The refe rence range was not u sed to interpret th is result as normal/abnormal . BACTERIA (test code = Few Negative A 0995751620) MUCOUS (test code = Slight Negative LPF A 9772223281) SQ EPITH (test code = HPF 2442440105) Lab Interpretation (test Abnormal code = 34140-7) [facility]PR Tkjoyoezzvi1391-79-76 16:42:24 Test Item Value Reference Range Interpretation [...] = 10-24-2020 N Expiration Dt) Thyroid Stimulating Vcmhukq3181-54-56 08:35:16 Test Item Value Reference Range Interpretation Comments TSH (test code = TSH) 1.170 mIU/mL 0.270-4.200 Lipid Yutxy9428-65-51 08:21:19 Test Item Value Reference Range Interpretation Comments Cholesterol Total 254 mg/dL 0-200 H RISK OF HE ART (test code = DISEASEPublishe d by Cholesterol Total) [employer] Cathie lyte Optimal Borderl ine [...] calculation is LDL/HDL Ratio=L DL Calc/HDL Chol UPMGFNIFWTPS9534-87-92 08:24:008.6[facility] GktqmyxXGEMHQYFKUFD4640-39-44 08:24:33900Mefiqjak BzjeoanHWYLJLIOTBJD7362-32-91 08:24:0027[facility] NVTIZLJWXJUE3917-29-59 08:24:75044Jsqrrwle RbmluyfNAEJWGSUYILG8603-58-38 08:24:003.6[facility] NqjkdpeUOFBVANIZEKP7383-27-11 08:24:000.70[facility] YPOLKCRQRVUQ7934-53-58 08:24:008.4[facility] ZoimsvfKHWKSGHFRBUJ4805-18-45 08:24:22777Ockeiaqb KjpfmcqRRVTZTSEFKBQ9970-45-39 08:24:0086[facility] XUWWJSTTBTRJ7174-78-91 08:24:006[facility] KypxacvYFREHTLQSP6237-98-14 08:24:00 11.6[facility] YlkmgqdMXXVKIYTCT0174-29-94 08:24:003.78[facility]annHEMATOLOGY 2019-01-26 08:24:0013.3[facility] GftkjdeYBIECSFCNC0098-16-86 08:24:0034.0[facility] PdkryxcVRNMIBUKNA0274-16-98 08:24:006.3[facility] QcdbyblSLCZFFVHVL1992-33-37 08:24:00 Test Item Value Reference Range Interpretation Comments MCH (test code = MCH) 30.7 pg 27.0-31.0 [facility] ZmwrqsvSYDLMKFYGT0573-08-80 08:24:0090.3[facility] HermannHEMATOLOGY 2019-01-26 08:24:0034.2[facility] KwdsjysRNXIOKYMRN2071-71-15 08:24:02394Fxvjobzf IburydxKSHFKGXHQH4705-81-97 08:24:007.5[facility] IllwgphHDNPGTEYQHWC2572-34-99 08:24:008.6[facility] EpmasqqWIDVDRIPFMWU2122-93-53 08:24:27672Dhzofama Yonis GQKLMPNJQZTK1591-88-02 08:24:0027[facility] UbfnrayOGDVUDVDRNUU3090-95-33 08:24:00 139[facility] XbltnoePJAMYTKPKXRW9195-14-74 08:24:003.6[facility] XACUIQTSCCIH2756-45-18 08:24:000.70[facility] OtxpygkRYVSIMBKZMJD2294-71-21 08:24:008.4[facility] WcnfkehDSTLCDVAKDKC9213-82-16 08:24:50462Seaqqona [facility] MKDENOFXJPGR3052-27-79 08:24:0086[facility] GsxrknoOZEWUFRTZLHF4437-21-29 08:24:00 6[facility] XcknnuoGJGGBJYUUE0156-15-09 08:24:0011.6[facility] HermannHEMATOLOGY 2019-01-26 08:24:003.78[facility] OjkzjcnNVCIGGGWCP0505-33-30 08:24:0013.3[facility] VyizkvbUDNJEFQIKF7693-01-55 08:24:0034.0[facility] GbkkeobGTGMEIPDTW7345-40-86 08:24:006.3[facility] BttflqbKJBFRCPCPS4342-18-10 08:24:00 Test Item Value Reference Range Interpretation Comments MCH (test code = MCH) 30.7 pg 27.0-31.0 [facility] ZpwukdlRLQRNMUNBX8150-53-79 08:24:0090.3[facility]annHEMATOLOGY 2019-01-26 08:24:0034.2[facility] JukjbfaOXXALBTQKV4028-66-37 08:24:59843Vdyvggzr IvurpxaUAJHIQKPSX8971-75-44 08:24:007.5[facility] HermannCHEM XZIES4260-08-26 09:14:30538Lxwczyvm HermannCHEM QTVES5963-07-36 09:14:008.5[facility]annCHEM DHNTM9752-83-31 09:14:0013.3[facility]annCHEM BJYIV6943-70-90 09:14:0024 [facility]annCHEM IRTNC5890-93-64 09:14:28489Oxxicrbh HermannCHEM PANEL 2019-01-25 09:14:0081[facility]annCHEM CLOST3397-74-07 09:14:002[facility]annCHEM DAXXF8188-17-88 09:14:003.3[facility]annCHEM NWUDM5859-15-51 09:14:000.60[facility]annCHEM ERXUQ1846-25-49 09:14:74255Gyekuslz HermannCHEM IEBLI7237-60-90 09:14:81769Onzjaszl HermannCHEM ONBVB1772-52-97 09:14:008.5 [facility]annCHE[facility] SOHQR4108-76-93 09:14:0013.3[facility]annCHEM PANEL 2019-01-25 09:14:0024[facility]annCHEM KTOWO6075-04-99 09:14:21162Kkeovyzh HermannCHEM AUPNB7078-94-10 09:14:0081[facility]annCHEM IWCHW6025-10-42 09:14:002[facility]annCHEM DBHDT4507-06-86 09:14:003.3[facility]annCHEM EGDJI3352-91-56 09:14:000.60[facility]annCHEM DEKMA1918-77-08 09:14:49004 [facility]annMOLECULAR NRLPDWGNPK5000-45-64 16:22:00Negative (01/23/19 11:22 AM)[facility] HermannMOLECULAR EPEFTNGIKN7076-50-02 16:22:00Negative (01/23/19 11:22 AM)[facility]annCHEM TUZMM0334-82-18 15:42:002.76[facility]annCHEM PANEL 2019-01-23 15:42:002.76[facility]annCHEM HVYON2653-08-65 12:32:000.9[facility]annCHEM PBFBL5740-60-04 12:32:000.9[facility]annCHEM ZHVBS7150-19-78 10:50:002.0[facility]annCHEM FAFZT4771-52-23 10:50:43479Vfiyntuf HermannCHEM DCEPL8281-16-60 10:50:0023[facility]annCHEM AFZHD4292-65-54 10:50:83325 [facility]annCHEM NXEIA4092-72-27 10:50:003.1[facility]annCHEM PANEL 2019-01-23 10:50:79934Subtwsim HermannCHEM UBPBN0789-07-92 10:50:005[facility]annCHEM HDLUD1935-68-87 10:50:000.50[facility]annCHEM YJBYI5389-21-84 10:50:007.8[facility]annCHEM MCOMR1248-53-69 10:50:0083[facility]annCHEM MMVEA7040-94-39 10:50:0010.1[facility] BicgtraYKADYEAWQV4510-81-44 10:50:000.2 [facility] VsnfgyqRBPDJTIQCD9814-84-62 10:50:000.8[facility]annHEMATOLOGY 2019-01-23 10:50:005.5[facility] WciqrtyDVGTNLQYKE7056-75-53 10:50:002.2[facility] ZgtdvhtZRVQEARDLI9987-21-09 10:50:000.1[facility] GrsiusdJOKZAAVABP1250-56-76 10:50:0063.6[facility] WzlkfiaKRIPGBAZUX8180-03-77 10:50:008.9[facility] WQVLKHVHTZ3351-20-54 10:50:002.3[facility] YasmdytWLVTSFXFXG4892-55-50 10:50:00 Normal (01/23/19 5:50 AM)[facility] ZijxrxiSDWHMBCZVV1616-74-51 10:50:00Normal (01/23/19 5:50 AM)[facility] PnmcbtsUVEMWEDXHO1290-86-27 10:50:0025.1[facility] PtchqvtJAPYOGTSLG0698-99-46 10:50:0013.1[facility] ZzeinyoWNOWZFZULY9126-77-79 10:50:21746Hwcpsyko PzscbprEEGPCQARKZ3494-02-18 10:50:007.7[facility] KYNFTJKPHA2009-01-37 10:50:008.6[facility] IznpjjhPEMMSGKFBO2844-38-48 10:50:00 10.0[facility] XtwiommCHFWBRRPAF8546-03-90 10:50:0034.6[facility] HermannHEMATOLOGY 2019-01-23 10:50:0028.7[facility] LykrofjXQSLZEVLSE8004-04-12 10:50:0087.8[facility] YgeaqqhPZBQPPCNOM6062-88-00 10:50:00 Test Item Value Reference Range Interpretation Comments MCH (test code = MCH) 30.4 pg 27.0-31.0 [facility] AfurzwmSSWPADUHSQ8982-79-59 10:50:003.27[facility] HermannHEMATOLOGY 2019-01-23 10:50:51577Kyivkncy LslgupdOMUIIDJAVD6648-58-11 10:50:007.7[facility] HuxwdncMKLUXYOAEM3179-41-89 10:50:008.6[facility] BhtoxajVMQLLVJVXV2276-32-90 10:50:0010.0[facility] BbfwtnzMQBZZGACVZ0031-75-62 10:50:0034.6[facility] WRFRYUEOXX3110-96-34 10:50:0028.7[facility] ZpuybngBXVLFSRCYL3949-44-98 10:50:00 87.8[facility] HyrmhvwJKKLPNKGOR7876-04-05 10:50:00 Test Item Value Reference Range Interpretation Comments MCH (test code = MCH) 30.4 pg 27.0-31.0 [facility] WwhxnlfCMIUVFSKRW6572-70-23 10:50:003.27[facility] HermannCHEM PANEL 2019-01-23 10:50:002.0[facility] HermannCHEM YHBCX7863-94-57 10:50:24149Kqnxsrnh HermannCHEM RSIZP0499-71-43 10:50:0023[facility]annCHEM INHWG2998-54-51 10:50:75408Trgrstoz [facility]annCHEM VOYAZ7070-95-98 10:50:003.1[facility]annCHEM FHFMR1276-99-57 10:50:91430Xmrjkyit [facility]annCHEM GDCLZ7863-91-23 10:50:005 [facility]annCHEM LNHEH3428-39-68 10:50:000.50[facility]annCHEM PANEL 2019-01-23 10:50:007.8[facility]annCHEM WSKNY9822-61-77 10:50:0083[facility]annCHEM RNUYZ7809-80-41 10:50:0010.1[facility] FhmowooPUBJGMPVLG4997-82-48 10:50:000.2[facility] KdqffqjVTOTWKCJFM4646-11-63 10:50:000.8[facility] ZPLJKATNUL4867-78-50 10:50:005.5[facility] GkprzwfSELVVDQILM2713-31-73 10:50:002.2 [facility] YvhhzizBNVBFMRHJD3066-19-77 10:50:000.1[facility] HermannHEMATOLOGY 2019-01-23 10:50:0063.6[facility] FlbktsdDPHBLLPRII8132-68-62 10:50:008.9[facility] PzexewdBDKATZPHRG4128-34-08 10:50:002.3[facility] PygjuppIYBHIHISZS8646-16-88 10:50:00Normal (01/23/19 5:50 AM)[facility] RthitylHRLPMPVMEP8908-80-77 10:50:00 Normal (01/23/19 5:50 AM)[facility] MumwcdnWYSDMRYSEG5479-11-68 10:50:0025.1[facility] DoarrbzWGKECNMCLM5259-59-12 10:50:0013.1[facility] HermannCHEM FEURK3376-29-70 11:32:002.4[facility]annCHEM ADTQM7435-34-36 11:32:002.4[facility] HermannCHEM ALCHA4690-99-43 09:04:003.0[facility]annCHEM LCDBG3255-25-51 09:04:003.0 [facility]UR[facility] AND VFINJ0229-76-62 07:14:00 Test Item Value Reference Range Interpretation Comments UA Spec Grav (test code = UA Spec 1.014 1 Grav) [facility] HZVJS0304-71-76 07:14:00 Test Item Value Reference Range Interpretation Comments UA pH (test code = UA pH) 6.0 1 5.0-8.0 [facility] MAMKR9493-45-19 07:14:00Negative (01/22/19 2:14 AM) [facility] QJKZG8143-48-85 07:14:00Negative *NA*(01/22/19 2:14 AM) [facility] PQCHS5367-65-14 07:14:00Negative *NA*(01/22/19 2:14 AM) [facility] KKJUI2655-18-32 07:14:00Negative *NA*(01/22/19 2:14 AM) [facility] CREBB5332-65-48 07:14:00Negative (01/22/19 2:14 AM) [facility] AZKAW7170-52-00 07:14:00Negative (01/22/19 2:14 AM) [facility] OIDBE4844-79-60 07:14:00Negative (01/22/19 2:14 AM) [facility] SPFFH4581-29-26 07:14:00<1[facility] JNKCN5604-16-33 07:14:0025[facility] AND QDOKI0802-09-92 07:14:002 [facility] OLMBX9657-65-04 07:14:00Light Yellow *NA*(01/22/19 2:14 AM)[facility] ECMAF5830-98-51 07:14:00Clear (01/22/19 2:14 AM) [facility] DQYRL6768-70-59 07:14:00 Test Item Value Reference Range Interpretation Comments UA Spec Grav (test code = UA Spec 1.014 1 Grav) [facility] EUTFT9354-52-11 07:14:00 Test Item Value Reference Range Interpretation Comments UA pH (test code = UA pH) 6.0 1 5.0-8.0 [facility] EMWRO0434-58-95 07:14:00Negative (01/22/19 2:14 AM) [facility] LKWYW4069-63-82 07:14:00Negative *NA*(01/22/19 2:14 AM) [facility] VIGZN5679-48-27 07:14:00Negative *NA*(01/22/19 2:14 AM) [facility] QGIKO4163-83-92 07:14:00Negative *NA*(01/22/19 2:14 AM) [facility] WTXAJ8979-89-94 07:14:00Negative (01/22/19 2:14 AM) [facility] HQYBI9609-90-84 07:14:00Negative (01/22/19 2:14 AM) [facility] PGPTZ9307-75-04 07:14:00Negative (01/22/19 2:14 AM) [facility] YWPKQ9117-67-71 07:14:00<1[facility] HVIXD0729-78-52 07:14:0025[facility] LPWFR8312-07-59 07:14:002 [facility] CDOCB0019-27-14 07:14:00Light Yellow *NA*(01/22/19 2:14 AM)[facility] HARWN3909-55-94 07:14:00Clear (01/22/19 2:14 AM) [facility] SetznhkWUFEP2157-77-69 05:16:000.90[facility] BwglqazGIIPM3874-40-25 05:16:000.90[facility] KkyouwsFXPGNNZLTI4373-94-04 05:01:0032.8[facility] TNUGHQESIQ6386-38-42 05:01:0013.6[facility] NbtnjtzBFYNGSJUVE7571-94-64 05:01:00 443[facility] InhjibzJXMGCUISXD7294-00-75 05:01:007.3[facility]annHEMATOLOGY 2019-01-22 05:01:0014.0[facility] FoqxhiaKEGLXIWEEB1580-02-92 05:01:004.85[facility] YggdpkfXBBOKUJEHT5263-87-26 05:01:0042.7[facility] XacyxzvDDWLYMPQTM9704-58-13 05:01:00 Test Item Value Reference Range Interpretation Comments MCH (test code = MCH) 29.0 pg 27.0-31.0 [facility] TrpjsnmOZTBNBBYAR2552-84-70 05:01:0088.2[facility]annHEMATOLOGY 2019-01-22 05:01:00 Test Item Value Reference Range Interpretation Comments INR (test code = INR) 0.96 1 0.85-1.17 [facility] FtffixrFKPNIYRLNY0093-07-31 05:01:00 Test Item Value Reference Range Interpretation Comments PT (test code = PT) 12.6 s 12.0-14.7 [facility] PjemakjVNZZVPYMTN6280-63-04 05:01:00 Test Item Value Reference Range Interpretation Comments PTT (test code = PTT) 25.9 s 22.9-35.8 [facility] NFXXYNX5496[facility]88-81 05:01:00Negative (01/22/19 12:01 AM) [facility] HermannCARDIAC RVBGKNZ1350-76-59 05:01:00<0.02[facility] CARDIAC RBBMKMZ3824-57-16 05:01:0049[facility] HermannCHEM TWWPU9098-77-68 05:01:000.6[facility] HermannCHEM WKEWU0557-60-44 05:01:96030Vkhovcgb HermannCHEM TNPYP5645-26-47 05:01:004.0[facility] HermannCHEM SVDPX6895-13-84 05:01:0017 [facility]annCHEM WDEGY4077-90-05 05:01:0025[facility]annCHEM PANEL 2019-01-22 05:01:008.1[facility] HermannCHEM ITJED8982-52-21 05:01:00 Test Item Value Reference Range Interpretation Comments B/C Ratio (test code = B/C Ratio) 20 1 6-25 [facility]annCHEM HXJQI8524-46-99 05:01:00 Test Item Value Reference Range Interpretation Comments A/G Ratio (test code = A/G Ratio) 1.0 1 0.7-1.6 [facility]annCHEM YYWUG4803-79-00 05:01:004.1[facility] HermannCHEM PANEL 2019-01-22 05:01:006.90[facility] RpedzbjCHLLKIIGMOLHN6747-96-99 05:01:00Negative *NA*(01/22/19 12:01 AM)[facility] RxulyeoPMDXTTEVJD5735-99-69 05:01:000.1[facility] GbaergvKQHWHJPVUY6117-14-81 05:01:000.7[facility] JpfedswQNQHWQNOCU6157-71-49 05:01:000.0[facility] EylvmbhFQFDXATWYN1853-81-68 05:01:000.0[facility] ICSABPRKVO3197-88-28 05:01:000.9[facility] UexbpvvBFVSNHAUJF4047-37-65 05:01:008.6 [facility] TeogacmAEAIVWQEXQ0795-56-92 05:01:000.6[facility]annHEMATOLOGY 2019-01-22 05:01:0086.5[facility] NusiksrFLAIEKAHUQ9295-40-73 05:01:005.7[facility] TsrpzlzQGOJJWBLLO8293-05-97 05:01:006.9[facility] GhmkpirLROFJQSGJT7758-87-16 05:01:009.9[facility] XqysbqhIKMLAYKAXA7396-65-64 05:01:0032.8[facility] PQQHXRVADS5184-39-55 05:01:0013.6[facility] DipwssjZXOUKCRHHV1057-84-17 05:01:00 443[facility] LtiucauLFBHONYHWR6890-47-58 05:01:007.3[facility]annHEMATOLOGY 2019-01-22 05:01:0014.0[facility] IcgfozyEFYERUCLKO8796-28-37 05:01:004.85[facility] ZesdootVFHVVONQQP2180-64-93 05:01:0042.7[facility] QbcjyvsZPCSITBJUP5103-37-61 05:01:00 Test Item Value Reference Range Interpretation Comments MCH (test code = MCH) 29.0 pg 27.0-31.0 [facility] UywkfjxKHFWYZWARY3461-06-30 05:01:0088.2[facility] HermannHEMATOLOGY 2019-01-22 05:01:00 Test Item Value Reference Range Interpretation Comments INR (test code = INR) 0.96 1 0.85-1.17 [facility]CxxtacjVCBCCSMVTF6017-90-27 05:01:00 Test Item Value Reference Range Interpretation Comments PT (test code = PT) 12.6 s 12.0-14.7 [facility] LngskdnSFNAAMLJLH5340-74-00 05:01:00 Test Item Value Reference Range Interpretation Comments PTT (test code = PTT) 25.9 s 22.9-35.8 [facility] MQNQILL7546-43-39 05:01:00Negative (01/22/19 12:01 AM) [facility] XPZABDS1860-72-31 05:01:00<0.02[facility] CARDIAC SMGUNMW4090-70-54 05:01:0049[facility] HermannCHEM FGEMX1260-71-77 05:01:000.6[facility] HermannCHEM ASVFK3985-47-34 05:01:69054Enbbutgo HermannCHEM YLIIR1143-24-99 05:01:004.0[facility] HermannCHEM FAFLO5251-51-04 05:01:0017 [facility]annCHEM BHRYG3420-90-36 05:01:0025[facility] HermannCHEM PANEL 2019-01-22 05:01:008.1[facility] HermannCHEM ZKYIH4743-56-21 05:01:00 Test Item Value Reference Range Interpretation Comments B/C Ratio (test code = B/C Ratio) 20 1 6-25 [facility] HermannCHEM LLNCS8164-32-02 05:01:00 Test Item Value Reference Range Interpretation Comments A/G Ratio (test code = A/G Ratio) 1.0 1 0.7-1.6 [facility]annCHEM JULRR9208-49-77 05:01:004.1[facility] HermannCHEM PANEL 2019-01-22 05:01:006.90[facility] XejwbjkDVDJLIKCALBWK0141-11-14 05:01:00Negative *NA*(01/22/19 12:01 AM)[facility] IvglspqNGWWZBSIWI9891-63-51 05:01:000.1[facility] TtiwlkaSRVEMEJLQJ1989-60-56 05:01:000.7[facility] QsqwkfhWRFWGKPHLN7158-13-62 05:01:000.0[facility] WoilbocKBUVBFQOKJ3505-14-51 05:01:000.0[facility] NCYCYFOMDW5391-00-38 05:01:000.9[facility] VtshcabTHCFIIDAOO3319-85-12 05:01:008.6 [facility] ZyxocsoIMZZVRDTUV1154-97-87 05:01:000.6[facility] HermannHEMATOLOGY 2019-01-22 05:01:0086.5[facility] GkouktbDMQZWMPJIU3214-37-62 05:01:005.7[facility] EylyhkkYKJCRBLUOF0811-13-95 05:01:006.9[facility] KsjduqsQMNZFUUOOH4671-57-55 05:01:009.9[facility] YmszkqcXQT5X5993-14-94 14:36:00 Test Item Value Reference Range Interpretation [...] 0.00-0.01 N code = ETOHU) Comprehensive Metabolic [id number] 14:36:00 Test Item Value Reference Range Interpretation [...] the [employer],http :[email or web address].gov Urinalysis Fpzlpjla0037-26-93 14:32:00 Test Item Value Reference Range Interpretation Comments Color (test code = COLOR) Yellow Yellow,Straw,Pl N yellow Clarity (test code = Clear Clear N CLAR) Specific [place] (test 1.024 1.001-1.035 N code = SPGR) [...] code = Few /HPF BACT) CBC with Pahvgxwswtir1506-66-01 14:21:00 Test Item Value Reference Range Interpretation [...] code = ALYMPH) 3.0 K/cumm 0.5-4.6 N [place] Abs (test code = AMONO) 0.5 K/cumm 0.0-1.2 N Eos Abs (test code = AEOS) 0.19 K/cumm 0.00-0.74 N Baso Abs (test code = ABASO) 0.1 K/cumm 0.00-0.21 N
[2021-10-17 20:45] LABS: Urine Blood Negative (Negative); Urine Glucose Negative (Negative); Urine Protein Negative (Negative); Urine Specific Gravity 1.015 (1.005-1.030)
--- NOTE | 2021-10-17 21:07 | EDPHYS ---
Physician Documentation [facility] Name: Tiffany Quinn Age: 51 yrs Sex: Female : 1970 Arrival Date: 10/17/2021 Time: 16:17 Bed DIS1 Private MD: ED Physician Bill Palm HPI: 10/17 20:27 This 51 yrs old Female presents to ER via Ambulatory with complaints of Headache, cp Nausea, Toe Pain. 20:27 The patient complains of pain to the top of head and forehead. The patient describes cp the headache as aching. 20:27 Onset: The symptoms/episode began/occurred today. cp 20:27 Associated signs and symptoms: Pertinent positives: nausea, Pertinent negatives: cp altered mental status, dizziness, fever, neck stiffness, vomiting. Severity of symptoms: in the emergency department the pain is unchanged, despite home interventions. Headache History: The patient has had previous headaches and this one is similar to previous episodes. 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 - Social history:: Smoking status: Patient reports the use of cigarette tobacco products, Patient denies any tobacco usage or history of. Patient uses street drugs, cocaine. ROS: 20:30 Constitutional: Negative for body aches, chills, fever, poor PO intake. cp 20:30 Eyes: Negative for injury, pain, redness, and discharge. cp 20:30 Cardiovascular: Negative for chest pain, edema, palpitations. 20:30 Respiratory: Positive for cough, Negative for shortness of breath, wheezing. 20:30 Abdomen/GI: Positive for nausea, Negative for abdominal pain, vomiting, diarrhea, constipation. 20:30 MS/extremity: Positive for pain, of the right great toe, Negative for injury or acute deformity, decreased range of motion. 20:30 Neuro: Positive for headache, Negative for altered mental status, syncope, weakness. 20:30 All other systems are negative. Exam: 20:35 Head/Face: Normocephalic, atraumatic. cp 20:35 Constitutional: The patient appears in no acute distress, alert, awake, comfortable, non-diaphoretic, non-toxic, well developed, well nourished. 20:35 Eyes: Periorbital structures: appear normal, Pupils: equal, round, and reactive to light and accomodation, Extraocular movements: intact throughout, Conjunctiva: normal, no exudate, no injection, Sclera: no appreciated abnormality, Lids and lashes: appear normal, bilaterally. 20:35 ENT: External ear(s): are unremarkable, Ear canal(s): are normal, clear, TM's: dullness, bilaterally, Nose: is normal, Posterior pharynx: Airway: no evidence of obstruction, patent. 20:35 Neck: ROM/movement: is normal, is supple, without pain, no range of motions limitations, no nuchal rigidity. 20:35 Chest/axilla: Inspection: normal. 20:35 Cardiovascular: Rate: normal, Rhythm: regular. 20:35 Respiratory: the patient does not display signs of respiratory distress, Respirations: normal, no use of accessory muscles, no retractions, Breath sounds: are clear throughout, no decreased breath sounds. 20:35 Abdomen/GI: Exam negative for discomfort, distension, guarding, Inspection: abdomen appears normal. 20:35 Neuro: Orientation: to person, place \T\ time. Mentation: is normal, Motor: moves all fours, strength is normal, Sensation: is normal, Gait: is steady, at a normal pace. Vital Signs: 17:23 BP 119 / 77; Pulse 94; Resp 16; Temp 97.9; Pulse Ox 100% ; Weight 71.67 kg; Height 5 ss ft. 3 in. (160.02 cm); Pain 10/10; 21:00 BP 133 / 80; Pulse 78; Resp 18; Temp 98.4; Pulse Ox 98% on R/A; Pain 5/10; mr2 21:24 BP 119 / 78; Pulse 74; Resp 16; Pulse Ox 98% on R/A; la1 17:23 Body Mass Index 27.99 (71.67 kg, 160.02 cm) ss MDM: 20:22 Patient medically screened. [facility] 21:05 Data reviewed: vital signs, nurses notes. cp 21:05 Differential diagnosis: migraine, chronic pain. Counseling: I had a detailed discussion cp with the patient and/or guardian regarding: the historical points, exam findings, and any diagnostic results supporting the discharge/admit diagnosis, to return to the emergency department if symptoms worsen or persist or if there are any questions or concerns that arise at home. Response to treatment: the patient's symptoms have mildly improved after treatment, and as a result, I will discharge patient. 10/17 20:45 Order name: Urine Dipstick-Ancillary; Complete Time: 21:00 EDMS 10/17 21:00 Interpretation: Reviewed. cp Administered Medications: 21:18 Drug: Zofran (Ondansetron) 4 mg Route: PO; as6 21:18 Follow up: Response: No adverse reaction as6 21:18 Drug: HYDROcodone-acetaminophen 5 mg-325 mg 1 tabs Route: Feeding Tube; as6 21:18 Follow up: Response: No adverse reaction; RASS: Alert and Calm (0) as6 Disposition Summary: 10/17/21 21:06 Discharge Ordered Location: Home cp Problem: an ongoing problem cp Symptoms: have improved cp Condition: Stable cp Diagnosis - Headache cp - Pain in right toe(s) cp Followup: cp - With: Private Physician - When: 1 - 2 days - Reason: Recheck today's complaints Discharge Instructions: - Discharge Summary Sheet cp - General Headache Without Cause cp Forms: - Medication Reconciliation Form cp - Thank You Letter cp - Antibiotic Education cp - Prescription Opioid Use cp Addendum: 10/21/2021 12:42 Co-signature as Attending Physician, Bill Palm MD I agree with the assessment and c rivero plan of care. Signatures: Dispatcher [employer] EDRI Bill Palm MD MD cha Smirch, Shelby, RN RN ss Brendan Williamson, MOTOR VEHICLE OPERATOR ROAD SUPERVISOR-C MOTOR VEHICLE OPERATOR ROAD SUPERVISOR-Cla1 Bill Hay PA PA cp Ebenezer Casanova RN RN as6
--- NOTE | 2021-10-17 21:07 | ER ---
Nurse's Notes [facility] Name: Tiffany Quinn Age: 51 yrs Sex: Female : 1970 Arrival Date: 10/17/2021 Time: 16:17 Bed DIS1 Private MD: Diagnosis: Headache;Pain in right toe(s) Presentation: 10/17 17:23 Chief complaint: Patient states: yesterday i had to come in for a migraine. I have the ss same thing today. I came in twice yesterday. I got hydrocodone yesterday. I dont know where to report it, people metaling at home. I have the same problem as yesterday. I lay on the living room floor miserable and decided to come here cause I can't go to my regular doctor until the of the year. I think i got worse yesterday because i had phone calls, made it way worse. My toe is hurting me real, my right big toe. Cant believe that happened it's never done that to me before. Coronavirus screen: Vaccine status: Patient reports receiving the 2nd dose of the covid vaccine. Client denies travel out of the [place] in the last 14 days. Ebola Screen: Patient negative for fever greater than or equal to 101.5 degrees Fahrenheit, and additional compatible Ebola Virus Disease symptoms Patient denies exposure to infectious person. Patient denies travel to an Ebola-affected area in the 21 days before illness onset. Initial Sepsis Screen: Does the patient meet any 2 criteria? No. Patient's initial sepsis screen is negative. Does the patient have a suspected source of infection? No. Patient's initial sepsis screen is negative. Risk Assessment: Do you want to hurt yourself or someone else? Patient reports no desire to harm self or others. Onset of symptoms. 17:23 Method Of Arrival: Ambulatory ss 17:23 Acuity: MANUEL 5 Triage Assessment: 17:29 Headache History: The patient has had previous headaches and this one is similar to previous episodes. General: Appears in no apparent distress. comfortable, Behavior is calm, cooperative, appropriate for age. Pain: Pain currently is 10 out of 10 on a pain scale. Pain began gradually, 2-3 days ago. Pain: Also complains of no other associated symptoms. Neuro: No deficits noted. RN IV THERAPY: 21:00 3, Living 1, LMP N/A - Post-menopause mr2 Historical: - Allergies: 17:28 Pepcid; ss 17:28 Toradol; ss - Home Meds: 17:28 Vraylar Oral [Active]; ss - PMHx: 17:28 ADD; Anxiety; Bipolar disorder; ss - PSHx: 17:28 Cholecystectomy; hernia repair; ss - Immunization history:: Adult Immunizations up to date. - Social history:: Smoking status: Patient reports the use of cigarette tobacco products, Patient denies any tobacco usage or history of. Patient uses street drugs, cocaine. Screenin:29 Abuse screen: Denies threats or abuse. Denies injuries from another. Nutritional ss screening: No deficits noted. Tuberculosis screening: No symptoms or risk factors identified. Fall Risk None identified. Assessment: 20:19 Pain: Complains of pain in plantar aspect of right first toe and Right first toenail mr2 Pain does not radiate. Pain currently is 4 out of 10 on a pain scale. 21:29 General: see triage assessment . as6 Vital Signs: 17:23 BP 119 / 77; Pulse 94; Resp 16; Temp 97.9; Pulse Ox 100% ; Weight 71.67 kg; Height 5 ss ft. 3 in. (160.02 cm); Pain 10/10; 21:00 BP 133 / 80; Pulse 78; Resp 18; Temp 98.4; Pulse Ox 98% on R/A; Pain 5/10; mr2 21:24 BP 119 / 78; Pulse 74; Resp 16; Pulse Ox 98% on R/A; la1 17:23 Body Mass Index 27.99 (71.67 kg, 160.02 cm) ED Course: 16:17 Patient arrived in ED. mr 17:28 Triage completed. ss 17:29 Arm band placed on right wrist. ss 20:21 Bill Hay PA is PHCP. cp 20:21 Bill Palm MD is Attending Physician. cp 20:51 Teddy Coleman, JIGNA is Primary Nurse. mr2 21:28 Bed in low position. Call light in reach. as6 21:28 No provider procedures requiring assistance completed. Patient did not have IV access as6 during this emergency room visit. Administered Medications: 21:18 Drug: Zofran (Ondansetron) 4 mg Route: PO; as6 21:18 Follow up: Response: No adverse reaction as6 21:18 Drug: HYDROcodone-acetaminophen 5 mg-325 mg 1 tabs Route: Feeding Tube; as6 21:18 Follow up: Response: No adverse reaction; RASS: Alert and Calm (0) as6 Outcome: 21:06 Discharge ordered by . francisco j 21:28 Discharged to home ambulatory. as6 21:28 Condition: stable 21:28 Discharge instructions given to patient, Instructed on discharge instructions, follow up and referral plans. Demonstrated understanding of instructions, follow-up care. 21:29 Patient left the ED. mr2 Signatures: Vinita Gan mr Preethi Melendez RN RN Bill Hay PA PA Teddy Yeh RN RN mr2 Ebenezer Casanova RN RN as6
[2021-10-17] MEDS ORDERED: HYDROCODONE/APAP 5/325 MG TAB ONE (21:17)
[2021-10-17] MEDS ORDERED: ONDANSETRON 4 MG (ODT) TAB ONE (21:17)
[2021-10-17 21:35] VITALS: TEMP 98.4; O2SAT 98
[2021-10-17 21:36] VITALS: BP 119/78
== END 2021-10-17 21:29 | disposition home or self-care (01) ==
LOC: ER 16:14
DX: R51.9 Headache, unspecified (principal); M79.674 Pain in right toe(s); F31.9 Bipolar disorder, unspecified; Z88.5 Allergy status to narcotic agent; Z88.8 Allergy status to other drugs, medicaments and biological substances
CPT/HCPCS: 81003; 99283

== ENCOUNTER 2021-10-19 21:04 | Emergency (ER) | payer OTHER ==
--- OUTSIDE RECORDS SUMMARY | 2021-10-19 21:12 | XMS REPORT | Continuity of Care Document ---
:1970 Author Organization [facility] t Address [address] [place] [address] Care Team Providers Name Role Phone UNKNOWN [...] Effective Date Expiration Date S [facility] OF [place] - [phone] 2020 [place] 00:00:00 (MEDICARE REPLACEMENT/ADVANT AGE - HMO) Problems Condition Condition Condition Status Onset Resolution Last Treating Co mments Source Name Details Category Date Date Treatment Clinician Date LOW PB Diagnosis Active 2019-01-22 Mem oria 01-21 01:52:00 l LOW PB 00:00: Y[place] 00 Active 01/21/2019 [place] INFECTIOUS Diagnosis Active 2019-02-06 Memoria GASTROENTE 01-21 08:58:00 l RITIS AND 00:00: [place] COLITIS INFECTIOUS 00 GASTROENTE RITIS AND COLITIS Active 01/21/2019 [facility] Irregular Irregular Disease Active Uni vers menstrual menstrual 8-15 ity of cycle cycle 00:00: [address] Skin Skin Disease Active Univers lesion lesion 8-15 ity of 00:00: [address] Psychiatri Psychiatri Disease Active U nivers c disorder c disorder 8-15 it y of 00:00: [address] Well woman Well woman Disease Active U nivers exam with exam with 8-15 ity of routine routine 00:00: [place] gynecologi gynecologi 00 Me dical nicky exam nicky exam Branch INFECTIOUS Diagnosis Active 2019-02-06 Memoria GASTROENTE 08:58:00 l RITIS AND [place]onis COLITIS, INFECTIOUS GASTROENTE RITIS AND COLITIS, Active [facility] Allergies, Adverse Reactions, Alerts Allergy Allergy Status Severity Reaction(s) Onset Inactive Treating Comm ents Source Name Type Date Date Clinician NO KNOWN Drug Active Univers ALLERGIE Class ity of S [facility] Phenerga Phenerga Active [place] winifred [place] Social History Social Habit Start Date Stop Date Quantity Comments Source History of Cigarette Smoker Universi ty of tobacco use [facility] Tobacco Comment 2-3 cigs a day [facility] Exposure to Not sure [place] of SARS-CoV-2 [facility] (event) [place] Tobacco use and 2016-06-08 2016-06-08 [facility]00 00:00:00 [facility] Alcohol intake 2016-06-08 2016-06-08 0 /d University of 00:00:00 00:00:00 [facility] Sex Assigned At [birth year] Universit y of 00:00:00 00:00:00 [facility] Smoking Status Start Date Stop Date Source Social History 2019-01-22 05:00:12 [facility] Her urena Current some day smoker 2016-06-08 00:00:00 [facility] Medications Ordered Filled Start Stop Current Ordering Indication Dosage Frequency Signature Comments Components Source Medication Medication Date Date Medication? Clinician (SIG) Name Name cefTRIAXone 2020-10- No 1000mg 1,000 mg, Univers (ROCEPHIN) 17 11-17 IV ity of 1,000 mg in 08:30: 08:01 [place], [place] NaCl 0.9% 00 :00 ONCE, 1 [...] 09/09/21 at 2330, RANDA amoxicillin 2020-10 Yes [id number] 500mg Take 1 Univers 500 mg 11-10 capsule by ity of capsule 00:00: mouth 3 [place] 00 (three) Medical times Branch daily. ondansetron 2019-10- No 4mg 4 mg, [facility] ers (ZOFRAN-ODT 12-01 Oral, ity of ) 15:15: 14:16 ONCE, 1 [place] disintegrat 00 :00 dose, Mon Med ical ing tablet 09/30/20 at [facility] 4 mg 0915, Routine ondansetron 2019-10- No 4mg 4 mg, [facility] ers (ZOFRAN-ODT 12-01- Oral, ity of ) 14:30: 13:32 ONCE, 1 [place] disintegrat 00 :00 dose, Mon Med ical ing tablet 09/30/20 at [facility] n[facility] 4 mg 0830, Routine ondansetron 2019-10 Yes [id number] 4mg Take 1 Univers 4 mg 2-07 tablet by ity of disintegrat 00:00: mouth [place] ing tablet 00 every 8 Medica l (eight) Branch hours as needed for Nausea and Vomiting (N/V). ondansetron 2019-10 Yes [id number] 4mg Take 1 Univers 4 mg 2-07 tablet by ity of disintegrat 00:00: mouth [place] ing tablet 00 every 8 Medica l (eight) Branch hours as needed for Nausea and Vomiting (N/V). ondansetron 2019-10 Yes [id number] 4mg Take 1 Univers 4 mg 2-07 tablet by ity of disintegrat 00:00: mouth [place] ing tablet 00 every 8 Medica l (eight) Branch hours as needed for Nausea and Vomiting (N/V). ondansetron 2019-10 Yes [id number] 4mg Take 1 Univers 4 mg 2-07 tablet by ity of disintegrat 00:00: mouth [place] ing tablet 00 every 8 Medica l (eight) Branch hours as needed for Nausea and Vomiting (N/V). ciprofloxac 2019 Yes 500 mg = 1 Memoria in 500 mg 4-04 tab, PO, l oral tablet 17:35: [id number], X [place]is 00 4 day, # 8 [...] 4-04 tab, PO, l oral tablet 17:35: [id number], X [place] 00 4 day, # 8 tab, 0 [...] s with feeding tube less than 14 Haitian (Dobhoff, J-tube etc) and pediatric and patients. Potassium No Notes: Memori a Chloride 4-03 (Same as: l 13:26: K-Dur 20) [place] "Do Not Crush" Give with food and full glass of water For patients unable to swallow tablet, dissolve in one half glass of water. Allow about 2 minutes for the tablets to disintegra te. Stir before giving to prepare slurry and administer . Please exclude Patient s with feeding tube less than 14 Haitian (Dobhoff, J-tube etc) and pediatric and patients. Strattera No 0.5 mg/kg, Me moria 01-24 Route: PO, l 14:00: QAM, [place] Dosing Weight 75, kg, Start date: 01/24/19 9:00:00 CDT, Duration: 30 day, Stop date: 02/22/19 9:00:00 CDT Strattera 0 No 0.5 mg/kg, Me moria 402 Route: PO, l 14:00: QAM, [place] 00 Dosing Weight 75, kg, Start date: [...] Memoria 4- (Same as: l 15:00: Flagyl) [place] 00 Take with food/ avoid alcohol Cipro No Notes: February Memori a 4- interfere l 15:00: w/enteral [place] 00 feedings - Take 1 hr before [...] PO, ONCE, l mEq oral 14:20: 0 [place] tablet, 00 Refill(s) extended release Metronidazo No 500 mg, Mem oria le 500 MG 4-01 PO, l Oral Tablet 14:20: [id number], 0 H ermann [Flagyl] 00 Refill(s) Ciprofloxac No 500 mg, Mem oria in 500 MG 01 PO, l Oral Tablet 14:20: [id number], 0 [place] [Cipro] 00 Refill(s) potassium Yes 40 mEq, Memor ia chloride 20 -01 PO, ONCE, l mEq oral 14:20: 0 [place] tablet, 00 Refill(s) extended release Metronidazo No 500 mg, Mem oria le 500 MG 4-01 PO, l Oral Tablet 14:20: [id number], 0 H ermann [Flagyl] 00 Refill(s) Ciprofloxac No 500 mg, Mem oria in 500 MG 4-01 PO, l Oral Tablet 14:20: [id number], 0 [place] [Cipro] 00 Refill(s) Potassium No [...] s with feeding tube less than 14 Haitian (Dobhoff, J-tube etc) and pediatric and patients. [...] s with feeding tube less than 14 Haitian (Dobhoff, J-tube etc) and pediatric and patients. [...] tab, PO, l Tablet 21:08: BID, 0 [place] [Risperdal] 00 Refill(s) Strattera Yes 0.5 mg/kg, [...] tab, PO, l Tablet 21:08: BID, 0 [place] [Risperdal] 00 Refill(s) Zosyn No Notes: Memoria [...] oria 3-31 to exceed l 15:03: 400mg/day. [place] 00 (Same As: Ultram) Tramadol No Notes: [...] 01-22 Route: IM, l 09:47: Drug form: [place] 00 PDR/INJ, PRN, Dosing Weight 75.994, kg, [...] 01-22 Route: IM, l 09:47: Drug form: [place] PDR/INJ, PRN, Dosing Weight 75.994, kg, PRN Blood Glucose Results, Start date: 01/22/19 4:47:00 CDT, Duration: 30 day, Stop date: 02/21/19 4:46:00 CDT Dextrose 2018- No 12.5 gm, Memor ia 50% Syringe 3-31 25 mL, l 09:47: Route: [place] 00 IVP, Drug Form: INJ, Dosing Weight [...] moria IV 3-31 1,000 l 08:52: ml/hr, [place] 00 Infuse Over: 1 hr, Route: IV, [...] 0.9% 3-31 Same as: l 04:52: BD [place] Posiflush Sterile NS (Bolus) No 1,000 mL, Me moria IV 3-31 1,000 l 04:51: ml/hr, [place] 00 Infuse Over: 1 hr, Route: IV, 1,000, Drug form: INJ, ONCE, Priority: STAT, Dosing Weight 75.994 kg, Start date: 01/21/19 23:51:00 CDT, Stop date: 01/21/19 23:51:00 CDT NS (Bolus) No 1,000 mL, Me moria IV 01-22 1,000 l 04:51: ml/hr, [place] 00 Infuse Over: 1 hr, Route: IV, [...] by ity of mg tablet 14:02: mouth [place] [address] every 6 Medical (six) Branch hours as needed. CLONAZEPAM 2016-0 Yes Take by Uni vers (KLONOPIN 8-15 mouth. ity of ORAL) 14:02: [address] Branch CITALOPRAM 2016-0 Yes Take by Uni vers HYDROBROMID 8-15 mouth. ity of E 14:02: [place] (CITALOPRAM 27 Medical ORAL) Branch ibuprofen 2016-0 Yes 200mg Take 200 Uni vers (ADVIL) 200 8-15 mg by ity of mg tablet 14:02: mouth [place] [address] every 6 Medical (six) Branch hours as needed. CLONAZEPAM 2016-0 Yes Take by Uni vers (KLONOPIN 8-15 mouth. ity of ORAL) 14:02: [address] Branch CITALOPRAM 2016-0 Yes Take by Uni vers HYDROBROMID 8-15 mouth. ity of E 14:02: [place] (CITALOPRAM 27 Medical ORAL) Branch ibuprofen 2016-0 Yes 200mg Take 200 Uni vers (ADVIL) 200 8-15 mg by ity of mg tablet 14:02: mouth [place] [address] every 6 Medical (six) Branch hours as needed. CLONAZEPAM 2016-0 Yes Take by Uni vers (KLONOPIN 8-15 mouth. ity of ORAL) 14:02: [place] [address] Medical Branch CITALOPRAM 2016-0 Yes Take by [...] 08:01:00 138 mm[Hg] Univer sity of [facility] Diastolic blood 2021-09-10 08:01:00 97 mm[Hg] Unive rsity of [facility] Heart rate 2021-09-10 08:01:00 87 /min [facility] Respiratory rate 2021-09-10 08:01:00 20 /min [facility] saturation in 2021-09-10 08:01:00 98 /min University of Arterial blood by [place] [facility] Pulse oximetry Branch Body temperature 2021-09-10 04:28:51 37.17 Ruthann [facility] Body height 2021-09-10 04:26:00 154.9 cm [facility] Body weight 2021-09-10 04:26:00 81.647 kg [facility] BMI 2021-09-10 04:26:00 34.01 kg/m2 [facility] Systolic blood 2021-09-09 20:06:00 150 mm[Hg] Univer sity of [facility] Diastolic blood 2021-09-09 20:06:00 89 mm[Hg] Unive rsity of [facility] Heart rate 2021-09-09 20:06:00 108 /min [facility] Body temperature 2021-09-09 20:06:00 37.22 Ruthann [facility] Respiratory rate 2021-09-09 20:06:00 18 /min [facility] Oxygen saturation in 2021-09-09 20:06:00 99 /min University of Arterial blood by [employer] nicky Pulse oximetry Branch Body weight 2021-09-09 [...] University of Arterial blood by [facility] nicky Pulse oximetry Branch Body temperature [...] University of Arterial blood by [facility] nicky Pulse oximetry Branch Body temperature [...] Systolic (mm Hg) 2019-01-28 01:16:00 Estrada rial [place] Diastolic (mm Hg) 2019-01-28 01:16:00 Mem orial [place] Heart Rate 2019-01-28 01:16:00 Memorial [place] Respitory Rate 2019-01-28 01:16:00 Memori al [place] Systolic (mm Hg) 2019-01-27 20:42:00 Estrada rial [place] Diastolic (mm Hg) 2019-01-27 20:42:00 Mem orial [place] Heart Rate 2019-01-27 20:42:00 Memorial [place] Respitory Rate 2019-01-27 20:42:00 Memori al [place] Temperature Oral (F) 2019-01-27 20:42:00 98.5 F [facility] [place] Systolic (mm Hg) 2019-01-27 17:00:00 Estrada rial [place] Diastolic (mm Hg) 2019-01-27 17:00:00 Mem orial [place] Temperature Oral (F) 2019-01-27 17:00:00 98.5 F [facility] [place] Heart Rate 2019-01-27 17:00:00 [facility] [place] Respitory Rate 2019-01-27 [facility] [place] Height 2019-01-22 14:35:00 157.48 cm [facility] BMI Calculated 2019-01-22 14:35:00 [facility] [place] Weight 2019-01-22 14:35:00 [facility] [place] Weight 2019-01-22 04:34:00 [facility] Procedure Date / Time Performing Clinician Source Performed URINALYSIS 2021-09-10 06:03:00 Neena Bradford [facility] URINE DRUG (IMMUNOASSAY) 2021-09-10 06:03:00 Neena Bradford [facility] n[facility] SCREEN W/O REFLEX XR CHEST 1 VW 2021-09-10 04:57:30 Neena Bradford [facility] CREATINE KINASE 2021-09-10 04:39:00 Neena Bradford [facility] MAGNESIUM 2021-09-10 04:39:00 Neena Bradford [facility] TROPONIN I 2021-09-10 04:39:00 Neena Bradford [facility] COMP. METABOLIC PANEL 2021-09-10 04:39:00 Neena Bradford [facility] ([id number]) Medical [place] CBC WITH DIFF 2021-09-10 04:39:00 Neena Bradford [facility] PROTHROMBIN TIME / INR 2021-09-10 04:39:00 [facility] ACTIVATED PARTIAL 2021-09-10 04:39:00 Neena Bradford [facility] THRMPLAS [facility] N-TERMINAL PRO-BNP 2021-09-10 04:39:[address] [facility] COVID-19 (ID NOW RAPID 2021-09-10 04:39:00 [facility] TESTING) Medical Branch TROPONIN I 2021-09-09 21:49:00 [facility] COMP. METABOLIC PANEL 2021-09-09 21:49:00 [facility] Luanne [facility] ([id number]) Medical Branch LITHIUM 2021-09-09 21:49:00 [facility] CBC WITH DIFF 2021-09-09 21:49:00 [facility] CONSENT/REFUSAL FOR 2021-09-09 19:51:22 Doctor Unassigned, No Un [facility] DIAGNOSIS AND TREATMENT Name [facility] Branch URINALYSIS 2020-09-30 13:27:00 [place], [facility] ADC,CLC OR LCC ONLY - 2020-09-30 13:27:00 JacksonChuy aleman [facility] INFLUENZA A & B DIRECT Medical B ranch ANTIGEN COVID-19 (ID NOW RAPID 2020-09-30 13:27:00 Tyrone Chuy [facility] TESTING) Medical Branch Encounters Start End Encounter Admission Attending Care Care Encounter Source Date/Time Date/Time Type Type Clinicians Facility Department ID 2019-01-22 Inpatient E [facility] MED [id number] [facility] W 04:39:00 2021-09-09 2021-09-10 Emergency DENIA Bradford [id number] Univers 22:20:00 03:02:00 Neena WALSH [id number] i ty of [place] 4.2.7.2.686 [facility] [id number] [facility] nicky 084 Branch 2021-09-09 2021-09-10 Emergency X DENIA BRADFORD ERT [id number] Univers 22:20:00 03:02:00 NEENA tubbs [facility] [place] [facility] 2021-09-09 2021-09-10 Emergency X SANCHEZ [facility] ERT [id number] Univers 22:20:00 03:02:00 NEENA tubbs [facility] [place] [facility] 2021-09-09 2021-09-09 [facility] [id number] Univers 14:07:00 17:35:00 Luanne WALSH 350.1.13.10 i ty of BABB 4.2.7.2.686 [facility] [id number] [address] 2021-09-09 2021-09-09 Orders Doctor BELKYS [id number] Univers 00:00:00 00:00:00 Only Unassigned, LANA 350.1.13.10 ity of [place] [facility] 4.2.7.2.[address] Joe [id number] [address] 2020-09-30 2020-09-30 [facility] [id number] Univers 07:22:00 08:18:00 Chuy Walsh 350.1.13.10 i ty of [place] 4.2.7.2.686 [facility] [id number] [address] 2020-09-30 2020-09-30 Emergency [facility] [id number] 07:22:00 08:18:00 Chuy Walsh 350.1.13.10 [place] 4.2.7.2.686 [place] [id number] [facility] 2020-09-30 2020-09-30 Emergency X [facility] ERT [id number] Univers 07:22:00 07:22:00 CHUY tubbs [facility] [place] [facility] 2020-04-05 2020-04-05 Outpatient Humaira-Mbayo VFP [facility] [id number] 05:44:00 05:44:00 _A_AH [id number] Family Practic e 2020-04-05 2020-04-05 Outpatient Humaira-Mbayo VFP [facility] [id number] 05:44:00 05:44:00 _A_AH 05211 Family Practic e 2020-04-05 2020-04-05 Outpatient Humaira-Alekso VFP VFP [id number] [id number] [facility] 05:44:00 05:44:00 _A_AH 17365 Family Practic e 2020-04-05 2020-04-05 Outpatient Humaira-Alekso VFP [facility]FP [id number] [id number] [facility] 05:44:00 05:44:00 _A_AH 84419 Family Practic e 2020-03-04 2020-03-14 Inpatient 3 Ronni Eldridge [facility] PSY [id number] 15:38:00 15:25:00 Chente [facility] 2019-12-13 2019-12-13 Outpatient Humaira-Alekso [facility]FP [facility] 07:22:00 07:22:00 _A_ [id number] Family Practic e 2019-01-22 2019-01-28 Inpatient [facility] [id number] Memoria 04:33:00 04:40:00 martin Somers 00 l [facility] 2018-02-21 2018-02-20 [facility] [id number] [facility] 14:48:00 13:18:00 [facility] Results Test Description Test Time Test Comments Results Result Comments Source TROPONIN I 2021-09-10 05:26:53 Test Item Value Reference Range Interpretation Comme nts TROPONIN I (test code = 0.003 ng/mL See_Comment [Au tomated message] The 5385276329) system which ge nerated this result tra [...] biotin. Lab Interpretation Normal (test code = 50997-0) [facility] [id number] 05:24:16 Test Item Value Reference Range Interpretation Comments NT-proBNP (test code 35 pg/mL See_Comment [Autom ated = 7244977359) message] The system which generated this result transmitted reference range : <=125. The reference range was not used to interpret this result as normal/abnormal . PERRY (test code = PERRY) Biotin has been reported to cause a negative bias, interpret results relative to patient's use of biotin. Lab Interpretation Normal (test code = 30228-4) [facility]2021-[facility]-17 05:16:51 Test Item Value Reference Range Interpretation Comments MAGNESIUM (test code = 7668065767) 1.8 mg/dL 1.7-2.4 Lab Interpretation (test code = Normal 42741-0) [facility]OL[facility] PAN[facility] ([id number])2021-09-10 05:16:31 Test Item Value Reference Range Interpretation Comments NA (test code = 139 mmol/L 135-145 7277808087) K (test code = 4.0 mmol/L 3.5-5.0 8854001357) CL (test code = 108 mmol/L 98-108 3233604721) CO2 TOTAL (test code 25 mmol/L 23-31 = 3100916286) AGAP (test code = 2-16 0224668569) BUN (test code = 14 mg/dL 7-23 3069001135) GLUCOSE (test code = 88 mg/dL 70-110 5213000887) CREATININE (test code 0.89 mg/dL 0.50-1.04 = 5986516704) TOTAL BILI (test code 0.5 mg/dL 0.1-1.1 = 4010444256) CALCIUM (test code = 10.3 mg/dL 8.6-10.6 9913763997) T PROTEIN (test code 6.9 g/dL 6.3-8.2 = 5065893274) ALBUMIN (test code = 4.3 g/dL 3.5-5.0 5509005638) ALK PHOS (test code = 72 U/L 34-122 7673291579) ALTv (test code = 17 U/L 35 1742-6) AST(SGOT) (test code 29 U/L 13-40 = 9038278972) eGFR (test code = mL/min/1.73m2 8283746794) PERRY (test code = PERRY) Association of [...] urine or abnormalities in imaging tests). [facility] [id number] 05:16:16 Test Item Value Reference Range Interpretation Comments CK (test code = 6436492208) 267 U/L 33-194 H Lab Interpretation (test code = Abnormal 66350-6) [facility] THRMPLAS [id number] 05:05:32 Test Item Value Reference Range Interpretation Comments APTT Patient (test See_Comment [Automat ed code = 3173-2) message] The system which generated this result transmitted reference range : 23 - 38 Seconds . The reference range was not used to interpr et this result as normal/abnormal . PERRY (test code = PERRY) The [facility] patient population mean normal value for aPTT is 30 seconds. Lab Interpretation Normal (test code = 35719-3) [facility] TIME / [id number] 05:03:30 Test Item Value Reference Range Interpretation [...] tions. Lab Interpretation (test Normal code = 71666-1) [facility] WITH [id number] 04:57:13 Test Item Value Reference Range Interpretation Comments WBC (test code = See_Comment [Automated 8790-2) message] The sy stem which generated this result transmitted reference range : 4.30 - 11.10 10*3/?L. The reference range was not used to interpret this result as normal/abnormal . RBC (test code = See_Comment [Automated 9-8) message] The sy stem which generated this [...] RDW-SD (test code = 41.2 fL 39.0-49.9 17586-1) RDW-CV (test code = 13.0 % 12.0-15.5 788-0) PLT (test code = See_Comment H [Automated 777-3) message] The sy stem which generated this result transmitted reference range : 166 - 358 10*3/ ?L. The reference r katie was not used to interpret this result as normal/abnormal . MPV (test code = 9.6 fL 9.5-12.9 31577-9) NRBC/100 WBC (test See_Comment [Automat ed code = 5997568333) message] The system which generated this result transmitted reference range : 0.0 - 10.0 /100 WBCs. The refer ence range was not u sed to interpret th is result as normal/abnormal . NRBC x10^3 (test code <0.01 See_Comment [Auto mated = 8678891998) message] The s ystem which generated this result transmitted reference range : 10*3/?L. The reference range was not used to interpret this result as normal/abnormal . GRAN MAT (NEUT) % 61.9 % (test code = 770-8) IMM GRAN % (test code 0.30 % = 9330415305) LYMPH % (test code = 26.0 % 736-9) MONO % (test code = 9.5 % 5905-5) EOS % (test code = 1.6 % 713-8) BASO % (test code = 0.7 % 706-2) GRAN MAT x10^3(ANC) 5.91 10*3/uL 1.88-7.09 (test code = 6885178739) IMM GRAN x10^3 (test 0.03 10*3/uL 0.00-0.06 code = 8496694618) LYMPH x10^3 (test code 2.48 10*3/uL 1.32-3.29 = 731-0) MONO x10^3 (test code 0.91 10*3/uL 0.33-0.92 = 742-7) EOS x10^3 (test code = 0.15 10*3/uL 0.03-0.39 711-2) BASO x10^3 (test code 0.07 10*3/uL 0.01-0.07 = 704-7) Lab Interpretation Abnormal (test code = 12069-9) [facility]ESSICA [id number] 22:24:55 Test Item Value Reference Interpretation Comments Range TROPONIN I (test 0.002 ng/mL See_Comment [Automated code = 1848285287) message] The system which generated this result [...] biotin. Lab Interpretation Normal (test code = 21122-0) [facility]2021-[facility]-16 22:24:34 Test Item Value Reference Range Interpretation Comments [place] (test code = <0.2 0.6-1.2 L 3567492740) PERRY (test code = PERRY) Toxic Range: ? Greater than 1.2 mmol/L Lab Interpretation (test Abnormal code = 11155-3) [facility]OLIC PANEL ([id number])2021-09-09 22:13:54 Test Item Value Reference Range Interpretation Comments NA (test code = 139 mmol/L 135-145 5730158600) K (test code = 4.0 mmol/L 3.5-5.0 0582789703) CL (test code = 105 mmol/L 98-108 1166610564) CO2 TOTAL (test code 26 mmol/L 23-31 = 2932604312) AGAP (test code = 2-16 2911801825) BUN (test code = 11 mg/dL 7-23 3783985771) GLUCOSE (test code = 109 mg/dL 70-110 8372412867) CREATININE (test code 0.71 mg/dL 0.50-1.04 = 7586235262) TOTAL BILI (test code 0.6 mg/dL 0.1-1.1 = 6202024392) CALCIUM (test code = 10.4 mg/dL 8.6-10.6 3390229007) T PROTEIN (test code 7.6 g/dL 6.3-8.2 = 5564377111) ALBUMIN (test code = 4.7 g/dL 3.5-5.0 4319174016) ALK PHOS (test code = 78 U/L 34-122 4562108365) ALTv (test code = 19 U/L 5-35 1742-6) AST(SGOT) (test code 28 U/L 13-40 = 7677877087) eGFR (test code = mL/min/1.73m2 2388707756) PERRY (test code = PERRY) Association of [...] imaging tests). [facility] WITH [id number] 22:03:32 Test Item Value Reference Range Interpretation Comments WBC (test code = See_Comment [Automated 0890-2) message] The sy stem which generated this [...] RDW-SD (test code = 40.2 fL 39.0-49.9 53675-4) RDW-CV (test code = 12.9 % 12.0-15.5 788-0) PLT (test code = See_Comment H [Automated 777-3) message] The sy stem which generated this result transmitted reference range : 166 - 358 10*3/ ?L. The reference r katie was not used to interpret this result as normal/abnormal . MPV (test code = 9.4 fL 9.5-12.9 L 03374-0) NRBC/100 WBC (test See_Comment [Automat ed code = 3562917848) message] The system which generated this result transmitted reference range : 0.0 - 10.0 /100 WBCs. The refer ence range was not u sed to interpret th is result as normal/abnormal . NRBC x10^3 (test code <0.01 See_Comment [Auto mated = 5315762011) message] The s ystem which generated this result transmitted reference range : 10*3/?L. The reference range was not used to interpret this result as normal/abnormal . GRAN MAT (NEUT) % 67.1 % (test code = 770-8) IMM GRAN % (test code 1.00 % = 5398276879) LYMPH % (test code = 21.4 % 736-9) MONO % (test code = 7.9 % 5905-5) EOS % (test code = 1.8 % 713-8) BASO % (test code = 0.8 % 706-2) GRAN MAT x10^3(ANC) 7.35 10*3/uL 1.88-7.09 H (test code = 9644151619) IMM GRAN x10^3 (test 0.11 10*3/uL 0.00-0.06 H code = 2257741382) LYMPH x10^3 (test code 2.34 10*3/uL 1.32-3.29 = 731-0) MONO x10^3 (test code 0.86 10*3/uL 0.33-0.92 = 742-7) EOS x10^3 (test code = 0.20 10*3/uL 0.03-0.39 711-2) BASO x10^3 (test code 0.09 10*3/uL 0.01-0.07 H = 704-7) Lab Interpretation Abnormal (test code = 09905-7) [facility] - IN[facility]UENZA A & B DIRECT YOECGMK9575-48-35 14:04:00 Test Item Value Reference Range Interpretation Comments Influenza A (test code = 04623-7) Negative Negative Influenza B (test code = 63374-1) Negative Negative Lab Interpretation (test code = Normal 92465-8) [facility] ([facility] NOW RAPID TESTING)2020-09-30 14:03:00 Test Item Value Reference Range Interpretation Comments SARS-CoV-2 Rapid ID NOW Not Detected Not Detected (test code = 38342-7) PERRY (test code = PERRY) ID NOW COVID-19 Assay is an isothermal nucleic acid amplification test intended for the qualitative detection of nucleic acid from SARS-CoV-2 viral RNA in nasopharyngeal ([employer] TE[employer]ER) specimens. It is used under Emergency [...] indicated. Lab Interpretation Normal (test code = 52664-7) [facility] 13:55:00 Test Item Value Reference Range Interpretation Comments APPEARANCE (test code = Hazy Clear A 8923909435) COLOR (test code = Yellow Yellow 2687289642) PH (test code = 4.8-8.0 3737925752) SP GRAVITY (test code = 1.003-1.030 4008020145) GLU U QUAL (test code = Normal Normal 1744579039) BLOOD (test code = Negative Negative 4250367916) KETONES (test code = 5 mg/dL Negative A 2985225185) PROTEIN (test code = Negative Negative 2887-8) UROBILIN (test code = 2.0 mg/dL Normal A 9315707268) BILIRUBIN (test code = Negative Negative 9481411234) NITRITE (test code = Negative Negative 1903845408) LEUK ROZINA (test code = 25/uL Negative A 6648866318) RBC/HPF (test code = See_Comment [Autom ated message] 1371598819) The system [employer] generated this result transmit ngozi reference range : 0 - 3 HPF. The refe rence range was not u sed to interpret th is result as normal/abnormal . WBC/HPF (test code = See_Comment [Autom ated message] 3768481162) The system [employer] generated this result transmit ngozi reference range : 0 - 5 HPF. The refe rence range was not u sed to interpret th is result as normal/abnormal . BACTERIA (test code = Few Negative A 0720869752) MUCOUS (test code = Slight Negative LPF A 3861912122) SQ EPITH (test code = HPF 4011554643) Lab Interpretation (test Abnormal code = 05581-7) [facility]RPR Lwjxauqftid0108-27-50 16:42:24 Test Item Value Reference Range Interpretation [...] = 10-24-2020 N Expiration Dt) Thyroid Stimulating Brpvvds6535-52-81 08:35:16 Test Item Value Reference Range Interpretation Comments TSH (test code = TSH) 1.170 mIU/mL 0.270-4.200 Lipid Bgmgp8401-57-84 08:21:19 Test Item Value Reference Range Interpretation Comments Cholesterol Total 254 mg/dL 0-200 H RISK OF HE ART (test code = DISEASEPublishe d by Cholesterol Total) [employer] Cathie lyte Optimal Borderl ine [...] calculation is LDL/HDL Ratio=L DL Calc/HDL Chol XZLYDLAEAAHC1040-71-24 08:24:008.6[facility] BnjcukoKGYFBAUDYMJF0044-11-03 08:24:37203Auxeaovo GvokkzmPIYFFTIMVKDZ9147-42-20 08:24:0027[facility] JEADSDUIDEDW2939-34-47 08:24:61041Jqijbviv AozohxgTAMYCNGQHTBJ8112-65-37 08:24:003.6[facility] LvghmvkPHZARMNBZEAI5050-62-30 08:24:000.70[facility] TVABGJNAZMDF2714-32-20 08:24:008.4[facility] LylcdrgTXGGVMRIENTD5482-58-65 08:24:80307Qgfrjxnk EotrbgdGBQBPTJQIJAX3584-96-92 08:24:0086[facility] CWIKMXJUBRJB3115-87-50 08:24:006[facility] NqfhjbkQIENGHQLSW8011-90-03 08:24:00 11.6[facility] PswbtyeRAPSWUGDDY9564-24-04 08:24:003.78[facility]annHEMATOLOGY 2019-01-26 08:24:0013.3[facility] XkcpfnsSBIBACGLJO8102-34-87 08:24:0034.0[facility] YyxxvgqDYPUCEISEG7613-06-56 08:24:006.3[facility] ZzcynpoVQCPREXPFE4124-63-74 08:24:00 Test Item Value Reference Range Interpretation Comments MCH (test code = MCH) 30.7 pg 27.0-31.0 [facility] LqjddaoWTWSTCHPXV4713-25-70 08:24:0090.3[facility] HermannHEMATOLOGY 2019-01-26 08:24:0034.2[facility] UuvmikuUKDAMLNBQQ8346-60-62 08:24:29556Ivatnumb OjuqmehHAZCFJNAFL6385-85-74 08:24:007.5[facility] GhnsynzKZVNKLWHFNBS1589-43-00 08:24:008.6[facility] GrndhpjLFNKERXDFBQC2006-53-60 08:24:44577Gmfijuoy [facility] NOZZJMYEEVDK9454-23-24 08:24:0027[facility] SablrhjFAMSMADQOEYX5091-71-75 08:24:00 139[facility] SsyecocZRJZLBOMDLKQ2753-74-61 08:24:003.6[facility] OQCSLOTWBDWH6335-76-32 08:24:000.70[facility] UozvtruJUTTXLTBAOGQ5417-16-91 08:24:008.4[facility] ExbdqxyORVOFPHOGDWX5696-21-99 08:24:15347Uqylpwqp [facility] HKAQKJKMBOLU8780-34-13 08:24:0086[facility] VzewxidQJAKCKCSORGB4270-52-71 08:24:00 6[facility] PavobjlINRSWXHSPB9036-41-35 08:24:0011.6[facility] HermannHEMATOLOGY 2019-01-26 08:24:003.78[facility] AxiniapPANGMMUBFK4026-13-99 08:24:0013.3[facility] MfweoqoIWAWCXNLVF6355-24-45 08:24:0034.0[facility] WhdcucnCKUKOSELKQ8162-52-94 08:24:006.3[facility] NutqzjyVJMFQUSMGY1061-01-60 08:24:00 Test Item Value Reference Range Interpretation Comments MCH (test code = MCH) 30.7 pg 27.0-31.0 [facility] UdcjcytANJMDZGUFQ7243-23-84 08:24:0090.3[facility] HermannHEMATOLOGY 2019-01-26 08:24:0034.2[facility] SyuomaqSATLMXXMDN8984-74-59 08:24:15116Jxycehwa KqujmyuLFUBIYRYSQ2539-87-65 08:24:007.5[facility] HermannCHEM ROIBG3281-09-10 09:14:84249Wloeypjt HermannCHEM TFCPG7046-16-21 09:14:008.5[facility] HermannCHEM EMXOW2807-16-94 09:14:0013.3[facility]annCHEM ZXQDZ9137-54-60 09:14:0024 [facility]annCHEM NZVMS4806-50-30 09:14:78223Kbkbpqqq HermannCHEM PANEL 2019-01-25 09:14:0081[facility]annCHEM HSYTW7429-23-56 09:14:002[facility]annCHEM URDGL7041-98-16 09:14:003.3[facility]annCHEM EMELA1049-51-61 09:14:000.60[facility]annCHEM EPTST3784-21-69 09:14:02583Iravywec HermannCHEM PKGWT3809-95-38 09:14:87675Elyzayrx [facility]annCHEM KQWON9434-55-35 09:14:008.5 [facility]annCHE[facility] RBPQM5407-78-24 09:14:0013.3[facility]annCHEM PANEL 2019-01-25 09:14:0024[facility]annCHEM CMLBC3584-25-30 09:14:42603Cvmvtfsu HermannCHEM CLHGW8876-89-26 09:14:0081[facility]annCHEM HESQK0947-15-81 09:14:002[facility]annCHEM XPWHT0826-94-75 09:14:003.3[facility]annCHEM LODBT0845-23-68 09:14:000.60[facility]annCHEM WGQWB4514-36-59 09:14:16166 [facility]annMOLECULAR QTOYBONTCE0413-66-17 16:22:00Negative (01/23/19 11:22 AM)[facility] HermannMOLECULAR OPNQJWOTEL4125-90-23 16:22:00Negative (01/23/19 11:22 AM)[facility]annCHEM LXAJB2051-20-47 15:42:002.76[facility]annCHEM PANEL 2019-01-23 15:42:002.76[facility]annCHEM VJNFN4710-69-42 12:32:000.9[facility]annCHEM QIAQH9758-17-21 12:32:000.9[facility]annCHEM IMDSR9318-09-18 10:50:002.0[facility]annCHEM TWHUL7120-60-74 10:50:66917Aidiiepm HermannCHEM KUKTO4129-83-52 10:50:0023[facility]annCHEM ZKLWZ0677-74-16 10:50:45104 [facility]annCHEM VJTVL0697-48-64 10:50:003.1[facility] HermannCHEM PANEL 2019-01-23 10:50:44824Ucmeeeho HermannCHEM LMERK8519-03-41 10:50:005[facility]annCHEM ECOMG4462-86-18 10:50:000.50[facility]annCHEM HGPPN4387-74-02 10:50:007.8[facility] HermannCHEM OHWIE1203-24-71 10:50:0083[facility]annCHEM ZGSHB1092-91-24 10:50:0010.1[facility] UeqclijNFFAXTDVQI6189-81-78 10:50:000.2 [facility] HppdsenNLDEUHVEYX8930-98-96 10:50:000.8[facility] HermannHEMATOLOGY 2019-01-23 10:50:005.5[facility] QhygkseSYZSMSDJPU3345-57-76 10:50:002.2[facility] NgqctkeSBOUSZPQIU0768-71-65 10:50:000.1[facility] UxfuqqcAMSBTQRRIC3709-20-94 10:50:0063.6[facility] BlyfgtuOGYYHPJBSJ8098-15-60 10:50:008.9[facility] ZSBDSJMHAB4434-97-02 10:50:002.3[facility] AemdibyIDHSBMFGAY6692-46-70 10:50:00 Normal (01/23/19 5:50 AM)[facility] HufqsbnLHSISPMAZO3786-27-99 10:50:00Normal (01/23/19 5:50 AM)[facility] SmjyjxbILJAPPTWTD5556-13-87 10:50:0025.1[facility] DvutzseZGVTHXTTYP4288-18-85 10:50:0013.1[facility] NhltljeJHEFZATCEW0251-20-98 10:50:67566Xnycaulq HgewsjcSMKWTJTYAQ9542-23-07 10:50:007.7[facility] ACFPXWVRIA4562-83-07 10:50:008.6[facility] CgrcbwfHOKMJPXQLF7969-58-95 10:50:00 10.0[facility] NhgdkofKGPKTUNYQA0862-26-27 10:50:0034.6[facility] HermannHEMATOLOGY 2019-01-23 10:50:0028.7[facility] TdrafrgPMITIIJKNP5394-88-11 10:50:0087.8[facility] TxshihePBBTTVPEXV9539-95-34 10:50:00 Test Item Value Reference Range Interpretation Comments MCH (test code = MCH) 30.4 pg 27.0-31.0 [facility] DsumlzbRKRDSDKGIH7061-24-63 10:50:003.27[facility] HermannHEMATOLOGY 2019-01-23 10:50:61848Peiprqwe EysznhuJWLJOCWERT4344-47-02 10:50:007.7[facility] PcxgtfsKBVCRDSHSG4025-48-34 10:50:008.6[facility] NqsqpkaPJJUNBJEXT5121-38-28 10:50:0010.0[facility] CrmuhvbRNLBLHNZIS8217-45-48 10:50:0034.6[facility] PBTYDUQALF2228-34-14 10:50:0028.7[facility] JxqsulkOTJANFKCTP6412-91-73 10:50:00 87.8[facility] SjvpwiiPKVYYNTPLD7027-24-87 10:50:00 Test Item Value Reference Range Interpretation Comments MCH (test code = MCH) 30.4 pg 27.0-31.0 [facility] BwbdyayGEONQFBQMQ3629-59-66 10:50:003.27[facility] HermannCHEM PANEL 2019-01-23 10:50:002.0[facility] HermannCHEM OYIGG1938-33-13 10:50:03532Atxbjomw HermannCHEM AOWDU4781-91-09 10:50:0023[facility]annCHEM TBALH3162-84-28 10:50:35541Rmgzfbwi [facility]annCHEM MAELO8495-34-87 10:50:003.1[facility]annCHEM LFXRM8033-97-68 10:50:07899Fvszgrmx [facility]annCHE[facility] BMGXP1848-25-88 10:50:005 [facility]annCHEM QRYTV7269-02-05 10:50:000.50[facility]annCHEM PANEL 2019-01-23 10:50:007.8[facility]annCHEM GHQGW6131-59-68 10:50:0083[facility]annCHEM HVFKF3373-44-17 10:50:0010.1[facility] TsmjcvcSBTGBCNLSC3816-81-94 10:50:000.2[facility] IicpyxrKMPZSOMNHP8859-69-44 10:50:000.8[facility] IFEVCBYERD3957-57-13 10:50:005.5[facility] VjsboulQYLHNSGGQO9464-43-08 10:50:002.2 [facility] RdeoukyRZEJUAXUYK1261-70-13 10:50:000.1[facility] HermannHEMATOLOGY 2019-01-23 10:50:0063.6[facility] EpdheewIDQADVHYON1336-57-16 10:50:008.9[facility] SdawnujFBMWICTQYQ8880-77-78 10:50:002.3[facility] KlofhcvTSRVOBVWZR3657-95-52 10:50:00Normal (01/23/19 5:50 AM)[facility] SauglosXJCSDLJTCM0809-16-58 10:50:00 Normal (01/23/19 5:50 AM)[facility] KdopnlaSUNDSUMHOJ0848-57-59 10:50:0025.1[facility] NbsgpoeWPGFCXDACX8013-88-50 10:50:0013.1[facility] HermannCHEM NBJNE6168-63-61 11:32:002.4[facility]annCHEM URRTY8039-89-41 11:32:002.4[facility] HermannCHEM WRVEC8831-09-00 09:04:003.0[facility]annCHEM MSPWW9988-90-30 09:04:003.0 [facility]UR[facility] AND ZLKIY6454-99-50 07:14:00 Test Item Value Reference Range Interpretation Comments UA Spec Grav (test code = UA Spec 1.014 1 Grav) [facility] KJVOJ2709-09-84 07:14:00 Test Item Value Reference Range Interpretation Comments UA pH (test code = UA pH) 6.0 1 5.0-8.0 [facility] BFLBS1467-33-28 07:14:00Negative (01/22/19 2:14 AM) [facility] KNFRV3518-31-70 07:14:00Negative *NA*(01/22/19 2:14 AM) [facility] CMJIY5315-71-20 07:14:00Negative *NA*(01/22/19 2:14 AM) [facility] GIAQO0257-43-61 07:14:00Negative *NA*(01/22/19 2:14 AM) [facility] TWVEV3526-20-74 07:14:00Negative (01/22/19 2:14 AM) [facility] SXDSB5276-84-02 07:14:00Negative (01/22/19 2:14 AM) [facility] VUTCA8585-79-41 07:14:00Negative (01/22/19 2:14 AM) [facility] AFHVT3875-71-96 07:14:00<1[facility] BKUJA9648-47-48 07:14:0025[facility]UR[facility] AND YZYKV5978-78-53 07:14:002 [facility] PKQJJ3790-46-42 07:14:00Light Yellow *NA*(01/22/19 2:14 AM)[facility] IMKOT5083-43-95 07:14:00Clear (01/22/19 2:14 AM) [facility] TJPTC3572-29-26 07:14:00 Test Item Value Reference Range Interpretation Comments UA Spec Grav (test code = UA Spec 1.014 1 Grav) [facility] ARECQ2511-44-70 07:14:00 Test Item Value Reference Range Interpretation Comments UA pH (test code = UA pH) 6.0 1 5.0-8.0 [facility] DKHTX0882-46-32 07:14:00Negative (01/22/19 2:14 AM) [facility] KJLUK1392-33-93 07:14:00Negative *NA*(01/22/19 2:14 AM) [facility] EQWFD1703-66-08 07:14:00Negative *NA*(01/22/19 2:14 AM) [facility] WFPMJ9169-44-29 07:14:00Negative *NA*(01/22/19 2:14 AM) [facility] EBFQE7917-95-62 07:14:00Negative (01/22/19 2:14 AM) [facility] PBTAL7113-86-23 07:14:00Negative (01/22/19 2:14 AM) [facility] BMMMX1737-41-75 07:14:00Negative (01/22/19 2:14 AM) [facility] VOBGD8272-19-63 07:14:00<1[facility] AND KQMNW5592-51-03 07:14:0025[facility] DPBDD4938-71-62 07:14:002 [facility] OFGEC9335-71-17 07:14:00Light Yellow *NA*(01/22/19 2:14 AM)[facility] DUTXS8934-91-70 07:14:00Clear (01/22/19 2:14 AM) [facility] IsslnyeFOQDN4288-41-57 05:16:000.90[facility] JghtlnqYKJCH7241-91-12 05:16:000.90[facility] HvrpwuyIJORQZWRQL5664-06-89 05:01:0032.8[facility] GFMGHONQAC4019-14-98 05:01:0013.6[facility] BlgngecJEFBSVYITJ4626-42-13 05:01:00 443[facility] UgaapokHSWZEWNYQE6698-20-62 05:01:007.3[facility] HermannHEMATOLOGY 2019-01-22 05:01:0014.0[facility] TzskpktJENALHUIDP2087-36-99 05:01:004.85[facility] XmrnwcbGXHCREVFSH2633-42-25 05:01:0042.7[facility] RemdcrwDEKZVNVSSL2570-01-86 05:01:00 Test Item Value Reference Range Interpretation Comments MCH (test code = MCH) 29.0 pg 27.0-31.0 [facility] MwzwlngUPQJCKSIDT4162-22-85 05:01:0088.2[facility] HermannHEMATOLOGY 2019-01-22 05:01:00 Test Item Value Reference Range Interpretation Comments INR (test code = INR) 0.96 1 0.85-1.17 [facility] JhjjiwiXFFOSLLSSE4001-73-21 05:01:00 Test Item Value Reference Range Interpretation Comments PT (test code = PT) 12.6 s 12.0-14.7 [facility] UsfunmxXBAHERPYQW0594-88-64 05:01:00 Test Item Value Reference Range Interpretation Comments PTT (test code = PTT) 25.9 s 22.9-35.8 [facility] MYVSEWR1509-16-59 05:01:00Negative (01/22/19 12:01 AM) [facility] HermannCARDIAC JULMBQP3206-32-22 05:01:00<0.02[facility] CARDIAC DYMTEHB0932-39-74 05:01:0049[facility] HermannCHEM FGNNJ9401-89-44 05:01:000.6[facility] HermannCHEM JSFMA0481-92-92 05:01:11651Aicmvifb HermannCHEM BFTNE5406-77-56 05:01:004.0[facility] HermannCHEM IGLKA5307-57-92 05:01:0017 [facility]annCHEM DHWVE7941-76-65 05:01:0025[facility]annCHEM PANEL 2019-01-22 05:01:008.1[facility]annCHEM VCJAF8818-27-88 05:01:00 Test Item Value Reference Range Interpretation Comments B/C Ratio (test code = B/C Ratio) 20 1 6-25 [facility]annCHEM KSJVE0158-70-11 05:01:00 Test Item Value Reference Range Interpretation Comments A/G Ratio (test code = A/G Ratio) 1.0 1 0.7-1.6 [facility]annCHEM UOUQG7244-84-48 05:01:004.1[facility] HermannCHEM PANEL 2019-01-22 05:01:006.90[facility] GvpjzqpCDULQUFMDIRCZ0863-69-80 05:01:00Negative *NA*(01/22/19 12:01 AM)[facility] GpvfgdnHWINKPHHDR8783-87-09 05:01:000.1[facility] AobyaghGUVKYBKDQI0803-07-29 05:01:000.7[facility] SwsgasoHEGGRELBPJ8775-89-45 05:01:000.0[facility] YguqmzdSTZEKCFEYT6915-97-19 05:01:000.0[facility] UVKYWRBBXB9794-40-69 05:01:000.9[facility] ZmevddzJWHPKTJJCZ1633-32-36 05:01:008.6 [facility] JkmtirhUQANDUYFMF3950-75-83 05:01:000.6[facility]annHEMATOLOGY 2019-01-22 05:01:0086.5[facility] KmtamhxLGXKAPTFCV9788-20-10 05:01:005.7[facility] BxxiagtJSLYYXMYTQ0730-89-31 05:01:006.9[facility] WqntxdcRODVFUVQVX8405-18-39 05:01:009.9[facility] XtzcwjnDNHCFLRJXC6827-54-00 05:01:0032.8[facility] OLFYOKKXRP6434-68-41 05:01:0013.6[facility] NtviqhyNHFEROTHEY7696-87-16 05:01:00 443[facility] EjgizlfHAVIMMOTWN3737-66-59 05:01:007.3[facility]annHEMATOLOGY 2019-01-22 05:01:0014.0[facility] WlkgmhmNTKDZRQLKY6252-12-63 05:01:004.85[facility] CzcuuxkWXGVHAFNZR4703-50-47 05:01:0042.7[facility] SfhpebqZADLMMWNKW7666-70-69 05:01:00 Test Item Value Reference Range Interpretation Comments MCH (test code = MCH) 29.0 pg 27.0-31.0 [facility] YdymrirYVSDVQKRFP0630-67-87 05:01:0088.2[facility] HermannHEMATOLOGY 2019-01-22 05:01:00 Test Item Value Reference Range Interpretation Comments INR (test code = INR) 0.96 1 0.85-1.17 [facility] HospitalBkejnarXUGKJDVOHA5408-20-20 05:01:00 Test Item Value Reference Range Interpretation Comments PT (test code = PT) 12.6 s 12.0-14.7 [facility] JnhodxlMRZIYQDUHD6382-61-10 05:01:00 Test Item Value Reference Range Interpretation Comments PTT (test code = PTT) 25.9 s 22.9-35.8 [facility] DSXIIUV2495-79-93 05:01:00Negative (01/22/19 12:01 AM) [facility] WYUSDDY9794-58-53 05:01:00<0.02[facility] CARDIAC GESETXD9128-67-72 05:01:0049[facility] HermannCHEM IIITF6958-94-43 05:01:000.6[facility] HermannCHEM BUSQQ8233-54-55 05:01:31089Rsdvhxls HermannCHEM VIPCX5886-39-57 05:01:004.0[facility] HermannCHEM QKDFC0718-32-87 05:01:0017 [facility]annCHEM QJHWF9742-42-81 05:01:0025[facility] HermannCHEM PANEL 2019-01-22 05:01:008.1[facility] HermannCHEM LEFCB9766-81-86 05:01:00 Test Item Value Reference Range Interpretation Comments B/C Ratio (test code = B/C Ratio) 20 1 6-25 [facility] HermannCHEM CKGHS6323-78-45 05:01:00 Test Item Value Reference Range Interpretation Comments A/G Ratio (test code = A/G Ratio) 1.0 1 0.7-1.6 [facility]annCHEM VHWTY0375-17-44 05:01:004.1[facility] HermannCHEM PANEL 2019-01-22 05:01:006.90[facility] ZllfvtjVLQNWESOOIREP7354-86-32 05:01:00Negative *NA*(01/22/19 12:01 AM)[facility] WutmmicOSGLWBZLGW3276-30-11 05:01:000.1[facility] TevnfsxJANIDWYFDI3082-27-82 05:01:000.7[facility] ZkppnfcRAXYDQNGSC3065-73-19 05:01:000.0[facility] LoekcxnUAQPPPZJGZ5579-43-13 05:01:000.0[facility] CXEYSFYGOC5031-22-50 05:01:000.9[facility] EqycrctWZSAOEGZVH3213-13-90 05:01:008.6 [facility] AflcotxOHQZSXUAVU3002-67-30 05:01:000.6[facility]annHEMATOLOGY 2019-01-22 05:01:0086.5[facility] XdhuwsfPYVZNZJDFQ6961-15-99 05:01:005.7[facility] GqhzlepKGUGRUHMFN3547-24-85 05:01:006.9[facility] WumyhhbXRQSMRWVBP6281-17-57 05:01:009.9[facility] QwztvriCZS7L3259-06-17 14:36:00 Test Item Value Reference Range Interpretation [...] 0.00-0.01 N code = ETOHU) Comprehensive Metabolic Yuyzm6427-72-38 14:36:00 Test Item Value Reference Range Interpretation [...] the [employer],http ://nkd ep.nih.gov Urinalysis Uwesvwvw3885-46-47 14:32:00 Test Item Value Reference Range Interpretation Comments Color (test code = COLOR) Yellow Yellow,Straw,Pl N yellow Clarity (test code = Clear Clear N CLAR) Specific Union (test 1.024 1.001-1.035 N code = SPGR) [...] code = Few /HPF BACT) CBC with Pkemrbcugzok6467-11-00 14:21:00 Test Item Value Reference Range Interpretation [...] code = ALYMPH) 3.0 K/cumm 0.5-4.6 N Brooke Abs (test code = AMONO) 0.5 K/cumm 0.0-1.2 N Eos Abs (test code = AEOS) 0.19 K/cumm 0.00-0.74 N Baso Abs (test code = ABASO) 0.1 K/cumm 0.00-0.21 N
--- NOTE | 2021-10-19 23:56 | ER ---
Nurse's Notes [facility] Name: Tiffany Quinn Age: 51 yrs Sex: Female : 1970 Arrival Date: 10/19/2021 Time: 21:06 Bed Waiting Private MD: Diagnosis: Encounter for examination of blood pressure Presentation: 10/19 23:24 Acuity: MANUEL 4 iw Assessment: 23:25 General: Appears in no apparent distress. Behavior is calm. Neuro: Level of iw Consciousness is awake, alert. Respiratory: Respiratory effort is even, unlabored, Respiratory pattern is regular. Vital Signs: 23:49 BP 131 / 86; Pulse 75; Resp 16; Temp 97.3(TE); Pulse Ox 98% ; Weight 72.03 kg (R); tt3 Height 5 ft. 3 in. (160.02 cm) (R); 23:49 Body Mass Index 28.13 (72.03 kg, 160.02 cm) tt3 ED Course: 21:06 Patient arrived in ED. bp1 23:25 Triage completed. iw 23:52 Bill Hay PA is PHCP. cp 23:52 Goran Bledsoe MD is Attending Physician. cp Administered Medications: No medications were administered Outcome: 23:56 Discharge ordered by MD. cp 23:59 Discharged to home iw 23:59 Condition: good 23:59 Discharge instructions given to patient, Instructed on discharge instructions, follow up and referral plans. Demonstrated understanding of instructions, follow-up care. 10/20 00:00 Patient left the ED. tt3 Signatures: Chante Warner RN RN iw Bill Hay PA PA cp Sofia Urban Tyler tt3
--- NOTE | 2021-10-19 23:57 | EDPHYS ---
Physician Documentation [facility] Name: Tiffany Quinn Age: 51 yrs Sex: Female : 1970 Arrival Date: 10/19/2021 Time: 21:06 Bed Waiting Private MD: JOHN Physician Goran Bledsoe HPI: 10/19 23:52 This 51 yrs old Female presents to ER via Unassigned with complaints of Blood Pressure cp Check. 23:53 concern for low blood pressure, requesting blood pressure check. cp ROS: 23:54 All other systems are negative. cp Exam: 23:54 Head/Face: Normocephalic, atraumatic. cp 23:54 Constitutional: The patient appears in no acute distress, alert, awake, non-diaphoretic, well developed, well nourished. 23:54 Chest/axilla: Inspection: normal. 23:54 Cardiovascular: Rate: normal. 23:54 Respiratory: the patient does not display signs of respiratory distress, Respirations: normal, no use of accessory muscles, no retractions, labored breathing, is not present. 23:54 Abdomen/GI: Exam negative for discomfort, distension, guarding, Inspection: abdomen appears normal. 23:54 Neuro: Orientation: to person, place \T\ time. Mentation: no acute changes, Motor: moves all fours. Vital Signs: 23:49 BP 131 / 86; Pulse 75; Resp 16; Temp 97.3(TE); Pulse Ox 98% ; Weight 72.03 kg (R); tt3 Height 5 ft. 3 in. (160.02 cm) (R); 23:49 Body Mass Index 28.13 (72.03 kg, 160.02 cm) tt3 MDM: 23:56 Patient medically screened. cp 23:56 Data reviewed: vital signs, nurses notes, and as a result, I will discharge patient. cp 23:56 Counseling: I had a detailed discussion with the patient and/or guardian regarding: the cp historical points, exam findings, and any diagnostic results supporting the discharge/admit diagnosis, to return to the emergency department if symptoms worsen or persist or if there are any questions or concerns that arise at home. Administered Medications: No medications were administered Disposition: 10/20 00:00 Chart complete. cp 01:19 Co-signature as Attending Physician, Goran Bledsoe MD. pkl Disposition Summary: 10/19/21 23:56 Discharge Ordered Location: Home cp Problem: an ongoing problem cp Symptoms: are unchanged cp Condition: Stable cp Diagnosis - Encounter for examination of blood pressure cp Followup: cp - With: Private Physician - When: 1 - 2 days - Reason: Recheck today's complaints Discharge Instructions: - Discharge Summary Sheet cp - How to Take Your Blood Pressure cp Forms: - Medication Reconciliation Form cp - Thank You Letter cp - Antibiotic Education cp - Prescription Opioid Use cp Signatures: Goran Bledsoe MD MD pkl Bill Hay PA PA cp
[2021-10-20 00:16] VITALS: BP 131/86; TEMP 97.3; O2SAT 98
== END 2021-10-20 | disposition home or self-care (01) ==
LOC: ER 21:04
DX: Z01.30 Encounter for examination of blood pressure without abnormal findings (principal)
CPT/HCPCS: 99281

== ENCOUNTER 2021-10-20 10:00 | Emergency (ER) | payer OTHER ==
--- OUTSIDE RECORDS SUMMARY | 2021-10-20 10:09 | XMS REPORT | Continuity of Care Document ---
:1970 Author Organization [facility] t Address [address] [place] [address] Care Team Providers Name Role Phone UNKNOWN [...] Date S [facility] OF [place] - [phone] 2020 [employer] 00:00:00 (MEDICARE REPLACEMENT/ADVANT AGE - HMO) Problems Condition Condition Condition Status Onset Resolution Last Treating Co mments Source Name Details Category Date Date Treatment Clinician Date LOW PB Diagnosis Active 2019-01-22 Mem oria 01-21 01:52:00 l LOW PB 00:00: Yonis 00 Active 01/21/2019 [facility] INFECTIOUS Diagnosis Active 2019-02-06 Memoria GASTROENTE 01-21 08:58:00 l RITIS AND 00:00: Rex COLITIS INFECTIOUS 00 GASTROENTE RITIS AND COLITIS Active 01/21/2019 [facility] Irregular Irregular Disease Active Uni vers menstrual menstrual 8-15 ity of cycle cycle 00:00: [address] Skin Skin Disease Active Univers lesion lesion 8-15 ity of 00:00: [address] Psychiatri Psychiatri Disease Active U nivers c disorder c disorder 8-15 it y of 00:00: [address] Well woman Well woman Disease Active U nivers exam with exam with 8-15 ity of routine routine 00:00: [place] gynecologi gynecologi 00 Me dical nicky exam nicky exam Branch INFECTIOUS Diagnosis Active 2019-02-06 Memoria GASTROENTE 08:58:00 l RITIS AND Yonis COLITIS, INFECTIOUS GASTROENTE RITIS AND COLITIS, Active [facility] Allergies, Adverse Reactions, Alerts Allergy Allergy Status Severity Reaction(s) Onset Inactive Treating Comm ents Source Name Type Date Date Clinician NO KNOWN Drug Active Univers ALLERGIE Class ity of S [facility] Phenerga Phenerga Active [place] winifred [place] Social History Social Habit Start Date Stop Date Quantity Comments Source History of Cigarette Smoker Universi ty of tobacco use [facility] Tobacco Comment 2-3 cigs a day [facility] Exposure to Not sure Ross of SARS-CoV-2 [facility] (event) [place] Tobacco use and 2016-06-08 2016-06-08 [facility] 00:[facility]:00 00:00:00 [facility] Alcohol intake 2016-06-08 2016-06-08 0 /d University of 00:00:00 00:00:00 [facility] Sex Assigned At [birth year] Universit y of 00:00:00 00:00:00 [facility] Smoking Status Start Date Stop Date Source Social History 2019-01-22 05:00:12 [facility] Her urena Current some day smoker 2016-06-08 00:00:00 [facility] Medications Ordered Filled Start Stop Current Ordering Indication Dosage Frequency Signature Comments Components Source Medication Medication Date Date Medication? Clinician (SIG) Name Name cefTRIAXone 2020-10- No 1000mg 1,000 mg, Univers (ROCEPHIN) 17 11-17 IV ity of 1,000 mg in 08:30: 08:01 [place], [place] NaCl 0.9% 00 :00 ONCE, 1 [...] 09/09/21 at 2330, RANDA amoxicillin 2020-10 Yes [id number] 500mg Take 1 Univers 500 mg 11-10 capsule by ity of capsule 00:00: mouth 3 [place] 00 (three) Medical times Branch daily. ondansetron 2019-10- No 4mg 4 mg, [facility] ers (ZOFRAN-ODT 12-01 Oral, ity of ) 15:15: 14:16 ONCE, 1 [place] disintegrat 00 :00 dose, Mon Med ical ing tablet 09/30/20 at [facility] 4 mg 0915, Routine ondansetron 2019-10- No 4mg 4 mg, [facility] ers (ZOFRAN-ODT 12-01- Oral, ity of ) 14:30: 13:32 ONCE, 1 [place] disintegrat 00 :00 dose, Mon Med ical ing tablet 09/30/20 at [facility] 4 mg 0830, Routine ondansetron 2019-10 Yes [id number] 4mg Take 1 Univers 4 mg 2-07 tablet by ity of disintegrat 00:00: mouth [place] ing tablet 00 every 8 Medica l (eight) Branch hours as needed for Nausea and Vomiting (N/V). ondansetron 2019-10 Yes [id number] 4mg Take 1 Univers 4 mg 2-07 tablet by ity of disintegrat 00:00: mouth [place] ing tablet 00 every 8 Medica l (eight) Branch hours as needed for Nausea and Vomiting (N/V). ondansetron 2019-10 Yes [id number] 4mg Take 1 Univers 4 mg 2-07 tablet by ity of disintegrat 00:00: mouth [place] ing tablet 00 every 8 Medica l (eight) Branch hours as needed for Nausea and Vomiting (N/V). ondansetron 2019-10 Yes [id number] 4mg Take 1 Univers 4 mg 2-07 tablet by ity of disintegrat 00:00: mouth [place] ing tablet 00 every 8 Medica l (eight) Branch hours as needed for Nausea and Vomiting (N/V). ciprofloxac 2019 Yes 500 mg = 1 Memoria in 500 mg 4-04 tab, PO, l oral tablet 17:35: [id number], X Yonis 00 4 day, # 8 [...] 4-04 tab, PO, l oral tablet 17:35: [id number], X Rex 00 4 day, # 8 tab, 0 [...] s with feeding tube less than 14 [place]ic (Dobhoff, J-tube etc) and pediatric and patients. Potassium No Notes: Memori a Chloride 4-03 (Same as: l 13:26: K-Dur 20) Rex "Do Not Crush" Give with food and full glass of water For patients unable to swallow tablet, dissolve in one half glass of water. Allow about 2 minutes for the tablets to disintegra te. Stir before giving to prepare slurry and administer . Please exclude Patient s with feeding tube less than 14 [place] (Dobhoff, J-tube etc) and pediatric and patients. Strattera No 0.5 mg/kg, Me moria 01-24 Route: PO, l 14:00: QAM, Yonis Dosing Weight 75, kg, Start date: 01/24/19 9:00:00 CDT, Duration: 30 day, Stop date: 02/22/19 9:00:00 CDT Strattera 0 No 0.5 mg/kg, Me moria 402 Route: PO, l 14:00: QAM, Rex 00 Dosing Weight 75, kg, Start date: [...] Memoria 4- (Same as: l 15:00: Flagyl) Rex 00 Take with food/ avoid alcohol Cipro No Notes: February Memori a 4- interfere l 15:00: w/enteral Rex 00 feedings - Take 1 hr before [...] PO, ONCE, l mEq oral 14:20: 0 Rex tablet, 00 Refill(s) extended release Metronidazo No 500 mg, Mem oria le 500 MG 4-01 PO, l Oral Tablet 14:20: [id number], 0 H ermann [Flagyl] 00 Refill(s) Ciprofloxac No 500 mg, Mem oria in 500 MG 01 PO, l Oral Tablet 14:20: [id number], 0 Rex [Cipro] 00 Refill(s) potassium Yes 40 mEq, Memor ia chloride 20 -01 PO, ONCE, l mEq oral 14:20: 0 Rex tablet, 00 Refill(s) extended release Metronidazo No 500 mg, Mem oria le 500 MG 4-01 PO, l Oral Tablet 14:20: [id number], 0 H ermann [Flagyl] 00 Refill(s) Ciprofloxac No 500 mg, Mem oria in 500 MG 4-01 PO, l Oral Tablet 14:20: [id number], 0 Yonis [Cipro] 00 Refill(s) Potassium No [...] s with feeding tube less than 14 [place]ic (Dobhoff, J-tube etc) and pediatric and patients. [...] s with feeding tube less than 14 [place]ic (Dobhoff, J-tube etc) and pediatric and patients. [...] tab, PO, l Tablet 21:08: BID, 0 Rex [Risperdal] 00 Refill(s) Strattera Yes 0.5 mg/kg, [...] tab, PO, l Tablet 21:08: BID, 0 Rex [Risperdal] 00 Refill(s) Zosyn No Notes: Memoria [...] oria 3-31 to exceed l 15:03: 400mg/day. Rex 00 (Same As: Ultram) Tramadol No Notes: [...] 01-22 Route: IM, l 09:47: Drug form: Rex 00 PDR/INJ, PRN, Dosing Weight 75.994, kg, [...] 01-22 Route: IM, l 09:47: Drug form: Rex PDR/INJ, PRN, Dosing Weight 75.994, kg, PRN Blood Glucose Results, Start date: 01/22/19 4:47:00 CDT, Duration: 30 day, Stop date: 02/21/19 4:46:00 CDT Dextrose 2018- No 12.5 gm, Memor ia 50% Syringe 3-31 25 mL, l 09:47: Route: Rex 00 IVP, Drug Form: INJ, Dosing Weight [...] moria IV 3-31 1,000 l 08:52: ml/hr, Rex 00 Infuse Over: 1 hr, Route: IV, [...] 0.9% 3-31 Same as: l 04:52: BD Rex Posiflush Sterile NS (Bolus) No 1,000 mL, Me moria IV 3-31 1,000 l 04:51: ml/hr, Rex 00 Infuse Over: 1 hr, Route: IV, 1,000, Drug form: INJ, ONCE, Priority: STAT, Dosing Weight 75.994 kg, Start date: 01/21/19 23:51:00 CDT, Stop date: 01/21/19 23:51:00 CDT NS (Bolus) No 1,000 mL, Me moria IV 01-22 1,000 l 04:51: ml/hr, Rex 00 Infuse Over: 1 hr, Route: IV, [...] HYDROBROMID 8-15 mouth. ity of E 19:02: [place] (CITALOPRAM 27 Medical ORAL) Branch ibuprofen 2016-0 Yes 200mg Take 200 Uni vers (ADVIL) 200 8-15 mg by ity of mg tablet 14:02: mouth [place] [id number] every 6 Medical (six) Branch hours as needed. CLONAZEPAM 2016-0 Yes Take by Uni vers (KLONOPIN 8-15 mouth. ity of ORAL) 14:02: [address] Branch CITALOPRAM 2016-0 Yes Take by Uni vers HYDROBROMID 8-15 mouth. ity of E 14:02: [place] (CITALOPRAM 27 Medical ORAL) Branch ibuprofen 2016-0 Yes 200mg Take 200 Uni vers (ADVIL) 200 8-15 mg by ity of mg tablet 14:02: mouth [place] [id number] every 6 Medical (six) Branch hours as needed. CLONAZEPAM 2016-0 Yes Take by Uni vers (KLONOPIN 8-15 mouth. ity of ORAL) 14:02: [address] Branch CITALOPRAM 2016-0 Yes Take by Uni vers HYDROBROMID 8-15 mouth. ity of E 14:02: [place] (CITALOPRAM 27 Medical ORAL) Branch ibuprofen 2016-0 Yes 200mg Take 200 Uni vers (ADVIL) 200 8-15 mg by ity of mg tablet 14:02: mouth [place] [id number] every 6 Medical (six) Branch hours as needed. CLONAZEPAM 2016-0 Yes Take by Uni vers (KLONOPIN 8-15 mouth. ity of ORAL) 14:02: [place] [id number] Medical Branch CITALOPRAM 2016-0 Yes Take by Uni vers HYDROBROMID 8-15 mouth. ity of E 14:02: [place] (CITALOPRAM 27 Medical ORAL) Branch misoprostol 2016-0 [...] H it y of en-caff 00:00: PRN. [place] (ESGIC) 00 Medical 50-325-40 Branch mg tablet butalbital- 2015-0 Yes TK 1 TO 2 U nivers acetaminoph 8-01 T PO Q 8 H it y of en-caff 00:00: PRN. [place] (ESGIC) 00 Medical 50-325-40 Branch mg tablet butalbital- 2015-0 Yes TK 1 TO 2 U nivers acetaminoph 8-01 T PO Q 8 H it y of en-caff 00:00: PRN. [place] (ESGIC) 00 Medical 50-325-40 Branch mg tablet butalbital- 2016-0 Yes TK 1 TO 2 U nivers acetaminoph 8-01 T PO Q 8 H it y of en-caff 00:00: PRN. [place] (ESGIC) 00 Medical 50-325-40 Branch mg tablet dextroamphe 0 Yes TK 1 T PO U nivers tamine-amph 7-20 BID. ity of etamine 00:00: [place] (ADDERALL) 00 Medical 20 mg Branch tablet dextroamphe Yes TK 1 T PO U nivers tamine-amph 7-20 BID. ity of etamine 00:00: [place] (ADDERALL) 00 Medical 20 mg Branch tablet dextroamphe Yes TK 1 T PO U nivers tamine-amph 7-20 BID. ity of etamine 00:00: [place] (ADDERALL) 00 Medical 20 mg Branch tablet [...] Center Respiratory rate 2021-09-10 08:01:00 20 /min [facility] saturation in 2021-09-10 08:01:00 98 /min University of Arterial blood by [place] [employer] [facility] Pulse oximetry Branch Body temperature 2021-09-10 04:28:51 37.17 Ruthann [facility] Body height 2021-09-10 04:26:00 154.9 cm [facility] [...] Center Body temperature 2021-09-09 20:06:00 37.22 Ruthann [facility] Respiratory rate 2021-09-09 20:06:00 18 /min [facility] Oxygen saturation in 2021-09-09 20:06:00 99 /min University of Arterial blood by [employer] nicky Pulse oximetry Branch Body weight 2021-09-09 20:05:00 81.647 kg Universi ty [facility] [place] [facility] BMI 2021-09-09 20:05:00 32.40 kg/m2 Universi ty of [place] [facility] Systolic blood 2020-09-30 14:00:00 126 mm[Hg] Univer sity of pressure [place] [facility] Diastolic blood 2020-09-30 14:00:00 84 mm[Hg] Unive rsity of pressure [place] [facility] Heart rate 2020-09-30 14:00:00 79 /min Universi ty of [place] [facility] Oxygen saturation in 2020-09-30 14:00:00 98 /min University of Arterial blood by [facility] nicky Pulse oximetry Branch Body temperature 2020-09-30 13:26:00 37.22 Ruthann Univ ersity of [place] [facility] Respiratory rate 2020-09-30 13:26:00 16 /min Univ ersity of [place] [facility] Body weight 2020-09-30 13:26:00 72.576 kg Universi ty [facility] [place] [facility] BMI 2020-09-30 13:26:00 28.80 kg/m2 Universi ty [facility] [place] [facility] Systolic blood 2020-09-30 14:00:00 126 mm[Hg] Univer sity of pressure [place] [facility] Diastolic blood 2020-09-30 14:00:00 84 mm[Hg] Unive rsity of pressure [place] [facility] Heart rate 2020-09-30 14:00:00 79 /min [facility]i ty [facility] [place] [facility] Oxygen saturation in 2020-09-30 14:00:00 98 /min University of Arterial blood by [facility] nicky Pulse oximetry Branch Body temperature 2020-09-30 13:26:00 37.22 Ruthann Univ ersity of [place] [facility] Respiratory rate 2020-09-30 13:26:00 16 /min Univ ersity of [place] [facility] Body weight 2020-09-30 13:26:00 72.576 kg [facility]i ty [facility] [place] [facility] BMI 2020-09-30 13:26:00 28.80 kg/m2 [facility]i ty [facility] [place] [facility] Temperature Oral (F) 2019-01-28 01:16:00 98.6 F [facility] Yonis Systolic (mm Hg) 2019-01-28 01:16:00 Estrada rial Rex Diastolic (mm Hg) 2019-01-28 01:16:00 Mem orial Rex Heart Rate 2019-01-28 01:16:00 [facility] Yonis Respitory Rate 2019-01-28 01:16:00 Memori al Rex Systolic (mm Hg) 2019-01-27 20:42:00 Estrada rial Rex Diastolic (mm Hg) 2019-01-27 20:42:00 Mem orial Yonis Heart Rate 2019-01-27 20:42:00 [facility] Rex Respitory Rate 2019-01-27 20:42:00 Memori al Rex Temperature Oral (F) 2019-01-27 20:42:00 98.5 F [facility] Rex Systolic (mm Hg) 2019-01-27 17:00:00 Estrada rial Yonis Diastolic (mm Hg) 2019-01-27 17:00:00 Mem orial Rex Temperature Oral (F) 2019-01-27 17:00:00 98.5 F [facility] Rex Heart Rate 2019-01-27 17:00:00 [facility] Rex Respitory Rate 2019-01-27 [facility] Height 2019-01-22 14:35:00 157.48 cm [facility] BMI Calculated 2019-01-22 14:35:00 [facility] Weight 2019-01-22 14:35:00 [facility] Yonis Weight 2019-01-22 04:34:00 [facility] Procedure Date / Time Performing Clinician Source Performed URINALYSIS 2021-09-10 06:03:[address] [facility] URINE DRUG (IMMUNOASSAY) 2021-09-10 06:03:00 Neena Bradford [facility] SCREEN W/O REFLEX XR CHEST 1 VW 2021-09-10 04:57:[address] [facility] CREATINE KINASE 2021-09-10 04:39:[address] [facility] MAGNESIUM 2021-09-10 04:39:[address] [facility] TROPONIN I 2021-09-10 04:39:[address] [facility] COMP. METABOLIC PANEL 2021-09-10 04:39:00 Neena Bradford [facility] ([id number]) Medical [place] CBC WITH DIFF 2021-09-10 04:39:[address] [facility] PROTHROMBIN TIME / INR 2021-09-10 04:39:00 Neena Bradford [facility] ACTIVATED PARTIAL 2021-09-10 04:39:00 Neena Bradford [facility] THRMPLAS [facility] N-TERMINAL PRO-BNP 2021-09-10 04:39:00 Neena Bradford [facility] COVID-19 (ID NOW RAPID 2021-09-10 04:39:00 Neena Bradford [facility] TESTING) Medical Branch TROPONIN I 2021-09-09 21:49:00 [facility] COMP. METABOLIC PANEL 2021-09-09 21:49:00 [facility] Luanne [facility] ([id number]) Medical Branch LITHIUM 2021-09-09 21:49:00 [facility] CBC WITH DIFF 2021-09-09 21:49:00 [facility] CONSENT/REFUSAL FOR 2021-09-09 19:51:22 Doctor Unassigned, No Un [facility] DIAGNOSIS AND TREATMENT Name [facility] Branch URINALYSIS 2020-09-30 13:27:00 [place], [facility] ADC,CLC OR LCC ONLY - 2020-09-30 13:27:00 JacksonChuy aleman [facility] INFLUENZA A & B DIRECT Medical B ranch ANTIGEN COVID-19 (ID NOW RAPID 2020-09-30 13:27:00 [place] Chuy [facility] TESTING) Medical Branch Encounters Start End Encounter Admission Attending Care Care Encounter Source Date/Time Date/Time Type Type Clinicians Facility Department ID 2019-01-22 Inpatient E [facility] MED [id number] [facility] W 04:39:00 2021-09-09 2021-09-10 Emergency DENIA Bradford [id number] Univers 22:20:00 03:02:00 Neena WALSH [id number] i ty of [place] 4.2.7.2.686 [facility] [id number] [facility] nicky 084 Branch 2021-09-09 2021-09-10 Emergency X DENIA BRADFORD ERT [id number] Univers 22:20:00 03:02:[address] [facility] 2021-09-09 2021-09-10 Emergency X SANCHEZ [facility] ERT [id number] Univers 22:20:00 03:02:[address] [facility] 2021-09-09 2021-09-09 [facility] [id number] Univers 14:07:00 17:35:00 Luanne WALSH [id number] i ty of [place] 4.2.7.2.686 [facility] [id number] [address] 2021-09-09 2021-09-09 Orders Doctor BELKYS [id number] Univers 00:00:00 00:00:00 Only Unassigned, LANA [id number] ity of Jaars [facility] 4.2.7.2.686 Joe [id number] [address] 2020-09-30 2020-09-30 [facility] [id number] Univers 07:22:00 08:18:00 Chuy Walsh [id number] i ty of [place] 4.2.7.2.686 [facility] [id number] [address] 2020-09-30 2020-09-30 Emergency [facility] [id number] 07:22:00 08:18:00 Chuy Walsh 350.1.13.10 [place] 4.2.7.2.686 [place] [id number] [facility] 2020-09-30 2020-09-30 Emergency X [facility] ERT [id number] Univers 07:22:00 07:22:[address] [facility] 2020-04-05 2020-04-05 Outpatient Humaira-Mbayo VFP [facility] [id number] 05:44:00 05:44:00 _A_AH [id number] Family Practic e 2020-04-05 2020-04-05 Outpatient Humaira-Mbayo VFP [facility] [id number] 05:44:00 05:44:00 _A_AH [id number] Family Practic e 2020-04-05 2020-04-05 Outpatient Humaira-Alekso [facility]FP [facility] [id number] [facility] 05:44:00 05:44:00 _A_AH [id number] Family Practic e 2020-04-05 2020-04-05 Outpatient Humaira-Alekso VFP [facility]FP [id number] [facility] 05:44:00 05:44:00 _A_AH 00215 Family Practic e 2020-03-04 2020-03-14 Inpatient 3 Ronni Eldridge [facility] PSY [id number] 15:38:00 15:25:00 Chente [facility] 2019-12-13 2019-12-13 Outpatient Humaira-Alekso [facility]FP [id number] 07:22:00 07:22:00 _A_ [id number] Family Practic e 2019-01-22 2019-01-28 Inpatient [facility] [id number] Memoria 04:33:00 04:40:00 martin Somers 00 l [facility] 2018-02-21 2018-02-20 [facility] [id number] 14:48:00 13:18:00 [facility] Results Test Description Test Time Test Comments Results Result Comments Source TROPONIN I 2021-09-10 05:26:53 Test Item Value Reference Range Interpretation Comme nts TROPONIN I (test code = 0.003 ng/mL See_Comment [Au tomated message] The 4581049056) system which ge nerated this result tra [...] biotin. Lab Interpretation Normal (test code = 13284-4) [id number] 05:24:16 Test Item Value Reference Range Interpretation Comments NT-proBNP (test code 35 pg/mL See_Comment [Autom ated = 3261771326) message] The system which generated this result transmitted reference range : <=125. The reference range was not used to interpret this result as normal/abnormal . PERRY (test code = PERRY) Biotin has been reported to cause a negative bias, interpret results relative to patient's use of biotin. Lab Interpretation Normal (test code = 95616-6) [place] [facility]2021-11-17 05:16:51 Test Item Value Reference Range Interpretation Comments MAGNESIUM (test code = 1895023464) 1.8 mg/dL 1.7-2.4 Lab Interpretation (test code = Normal 25350-9) [place] [facility]OLIC PANEL (25142)2021-09-10 05:16:31 Test Item Value Reference Range Interpretation Comments NA (test code = 139 mmol/L 135-145 9468007195) K (test code = 4.0 mmol/L 3.5-5.0 8699242420) CL (test code = 108 mmol/L 98-108 0764153887) CO2 TOTAL (test code 25 mmol/L 23-31 = 7136404055) AGAP (test code = 2-16 4079504759) BUN (test code = 14 mg/dL 7-23 8569791743) GLUCOSE (test code = 88 mg/dL 70-110 9949110601) CREATININE (test code 0.89 mg/dL 0.50-1.04 = 5534306017) TOTAL BILI (test code 0.5 mg/dL 0.1-1.1 = 0544686365) CALCIUM (test code = 10.3 mg/dL 8.6-10.6 2094462618) T PROTEIN (test code 6.9 g/dL 6.3-8.2 = 2205196267) ALBUMIN (test code = 4.3 g/dL 3.5-5.0 5777747375) ALK PHOS (test code = 72 U/L 34-122 4913071171) ALTv (test code = 17 U/L 35 1742-6) AST(SGOT) (test code 29 U/L 13-40 = 6654183541) eGFR (test code = mL/min/1.73m2 4779040695) PERRY (test code = PERRY) Association of [...] or abnormalities in imaging tests). [place] [facility] [id number] 05:16:16 Test Item Value Reference Range Interpretation Comments CK (test code = 3506010493) 267 U/L 33-194 H Lab Interpretation (test code = Abnormal 34446-3) [facility] PARTIAL THRMPLAS [id number] 05:05:32 Test Item Value Reference Range Interpretation Comments APTT Patient (test See_Comment [Automat ed code = 3173-2) message] The system which generated this result transmitted reference range : 23 - 38 Seconds . The reference range was not used to interpr et this result as normal/abnormal . PERRY (test code = PERRY) The [facility] patient population mean normal value for aPTT is 30 seconds. Lab Interpretation Normal (test code = 04543-1) [place] [facility] AllenPROTHROMBIN TIME / [id number] 05:03:30 Test Item Value Reference Range Interpretation [...] tions. Lab Interpretation (test Normal code = 28763-1) [facility] WITH [id number] 04:57:13 Test Item Value Reference Range Interpretation Comments WBC (test code = See_Comment [Automated 5290-2) message] The sy stem which generated this result transmitted reference range : 4.30 - 11.10 10*3/?L. The reference range was not used to interpret this result as normal/abnormal . RBC (test code = See_Comment [Automated 819-8) message] The sy stem which generated this [...] RDW-SD (test code = 41.2 fL 39.0-49.9 59990-6) RDW-CV (test code = 13.0 % 12.0-15.5 788-0) PLT (test code = See_Comment H [Automated 777-3) message] The sy stem which generated this result transmitted reference range : 166 - 358 10*3/ ?L. The reference r katie was not used to interpret this result as normal/abnormal . MPV (test code = 9.6 fL 9.5-12.9 74726-6) NRBC/100 WBC (test See_Comment [Automat ed code = 0846443634) message] The system which generated this result transmitted reference range : 0.0 - 10.0 /100 WBCs. The refer ence range was not u sed to interpret th is result as normal/abnormal . NRBC x10^3 (test code <0.01 See_Comment [Auto mated = 5458836951) message] The s ystem which generated this result transmitted reference range : 10*3/?L. The reference range was not used to interpret this result as normal/abnormal . GRAN MAT (NEUT) % 61.9 % (test code = 770-8) IMM GRAN % (test code 0.30 % = 4374623440) LYMPH % (test code = 26.0 % 736-9) MONO % (test code = 9.5 % 5905-5) EOS % (test code = 1.6 % 713-8) BASO % (test code = 0.7 % 706-2) GRAN MAT x10^3(ANC) 5.91 10*3/uL 1.88-7.09 (test code = 8220947574) IMM GRAN x10^3 (test 0.03 10*3/uL 0.00-0.06 code = 2003329290) LYMPH x10^3 (test code 2.48 10*3/uL 1.32-3.29 = 731-0) MONO x10^3 (test code 0.91 10*3/uL 0.33-0.92 = 742-7) EOS x10^3 (test code = 0.15 10*3/uL 0.03-0.39 711-2) BASO x10^3 (test code 0.07 10*3/uL 0.01-0.07 = 704-7) Lab Interpretation Abnormal (test code = 63469-1) [facility] [id number] 22:24:55 Test Item Value Reference Interpretation Comments Range TROPONIN I (test 0.002 ng/mL See_Comment [Automated code = 4457082758) message] The system which generated this result [...] biotin. Lab Interpretation Normal (test code = 42781-2) [facility]2021-[facility]-16 22:24:34 Test Item Value Reference Range Interpretation Comments [place] (test code = <0.2 0.6-1.2 L 3682882678) PERRY (test code = PERRY) Toxic Range: ? Greater than 1.2 mmol/L Lab Interpretation (test Abnormal code = 17879-9) [facility] AllenCOM. METABOLIC PANEL (18495)2021-09-09 22:13:54 Test Item Value Reference Range Interpretation Comments NA (test code = 139 mmol/L 135-145 5734082391) K (test code = 4.0 mmol/L 3.5-5.0 9004801203) CL (test code = 105 mmol/L 98-108 0410002818) CO2 TOTAL (test code 26 mmol/L 23-31 = 0954793697) AGAP (test code = 2-16 4767630488) BUN (test code = 11 mg/dL 7-23 9226954773) GLUCOSE (test code = 109 mg/dL 70-110 1881520348) CREATININE (test code 0.71 mg/dL 0.50-1.04 = 6957663849) TOTAL BILI (test code 0.6 mg/dL 0.1-1.1 = 0693305982) CALCIUM (test code = 10.4 mg/dL 8.6-10.6 1443707719) T PROTEIN (test code 7.6 g/dL 6.3-8.2 = 2504010459) ALBUMIN (test code = 4.7 g/dL 3.5-5.0 8093540746) ALK PHOS (test code = 78 U/L 34-122 6528180668) ALTv (test code = 19 U/L 5-35 1742-6) AST(SGOT) (test code 28 U/L 13-40 = 2295893050) eGFR (test code = mL/min/1.73m2 1091644316) PERRY (test code = PERRY) Association of [...] or urine or abnormalities in imaging tests). [facility] WITH [id number] 22:03:32 Test Item Value Reference Range Interpretation [...] RDW-SD (test code = 40.2 fL 39.0-49.9 89683-6) RDW-CV (test code = 12.9 % 12.0-15.5 788-0) PLT (test code = See_Comment H [Automated 777-3) message] The sy stem which generated this result transmitted reference range : 166 - 358 10*3/ ?L. The reference r katie was not used to interpret this result as normal/abnormal . MPV (test code = 9.4 fL 9.5-12.9 L 24971-7) NRBC/100 WBC (test See_Comment [Automat ed code = 4494269267) message] The system which generated this result transmitted reference range : 0.0 - 10.0 /100 WBCs. The refer ence range was not u sed to interpret th is result as normal/abnormal . NRBC x10^3 (test code <0.01 See_Comment [Auto mated = 4626746801) message] The s ystem which generated this result transmitted reference range : 10*3/?L. The reference range was not used to interpret this result as normal/abnormal . GRAN MAT (NEUT) % 67.1 % (test code = 770-8) IMM GRAN % (test code 1.00 % = 2269314895) LYMPH % (test code = 21.4 % 736-9) MONO % (test code = 7.9 % 5905-5) EOS % (test code = 1.8 % 713-8) BASO % (test code = 0.8 % 706-2) GRAN MAT x10^3(ANC) 7.35 10*3/uL 1.88-7.09 H (test code = 2207580170) IMM GRAN x10^3 (test 0.11 10*3/uL 0.00-0.06 H code = 3886540378) LYMPH x10^3 (test code 2.34 10*3/uL 1.32-3.29 = 731-0) MONO x10^3 (test code 0.86 10*3/uL 0.33-0.92 = 742-7) EOS x10^3 (test code = 0.20 10*3/uL 0.03-0.39 711-2) BASO x10^3 (test code 0.09 10*3/uL 0.01-0.07 H = 704-7) Lab Interpretation Abnormal (test code = 50432-8) [facility] - IN[facility]UEN[facility] A & B DIRECT PGWZNJN8101-95-74 14:04:00 Test Item Value Reference Range Interpretation Comments Influenza A (test code = 36152-6) Negative Negative Influenza B (test code = 08644-9) Negative Negative Lab Interpretation (test code = Normal 92164-9) [facility] ([facility] NOW RAPID TESTING)2020-09-30 14:03:00 Test Item Value Reference Range Interpretation Comments SARS-CoV-2 Rapid ID NOW Not Detected Not Detected (test code = 08537-3) PERRY (test code = PERRY) ID NOW COVID-19 Assay is an isothermal nucleic acid amplification test intended for the qualitative detection of nucleic acid from SARS-CoV-2 viral RNA in nasopharyngeal (EYEGLASS INSPECTOR) specimens. It is used under Emergency Use [...] indicated. Lab Interpretation Normal (test code = 66964-4) [facility] 13:55:00 Test Item Value Reference Range Interpretation Comments APPEARANCE (test code = Hazy Clear A 0920625301) COLOR (test code = Yellow Yellow 8870339414) PH (test code = 4.8-8.0 8473740236) SP GRAVITY (test code = 1.003-1.030 5561770323) GLU U QUAL (test code = Normal Normal 6862917815) BLOOD (test code = Negative Negative 2215289943) KETONES (test code = 5 mg/dL Negative A 7970095655) PROTEIN (test code = Negative Negative 2887-8) UROBILIN (test code = 2.0 mg/dL Normal A 7840820085) BILIRUBIN (test code = Negative Negative 0978465110) NITRITE (test code = Negative Negative 9780496448) LEUK ROZINA (test code = 25/uL Negative A 6190408757) RBC/HPF (test code = See_Comment [Autom ated message] 9279883335) The system [employer] generated this result transmit ngozi reference range : 0 - 3 HPF. The refe rence range was not u sed to interpret th is result as normal/abnormal . WBC/HPF (test code = See_Comment [Autom ated message] 4947859137) The system [employer] generated this result transmit ngozi reference range : 0 - 5 HPF. The refe rence range was not u sed to interpret th is result as normal/abnormal . BACTERIA (test code = Few Negative A 4313856550) MUCOUS (test code = Slight Negative LPF A 3273087380) SQ EPITH (test code = HPF 1440874153) Lab Interpretation (test Abnormal code = 78724-9) [facility] Tlhrpwwubzw9981-15-15 16:42:24 Test Item Value Reference Range Interpretation [...] = 10-24-2020 N Expiration Dt) Thyroid Stimulating Cweuqwg7909-93-83 08:35:16 Test Item Value Reference Range Interpretation Comments TSH (test code = TSH) 1.170 mIU/mL 0.270-4.200 Lipid Zpdfz5138-62-72 08:21:19 Test Item Value Reference Range Interpretation Comments Cholesterol Total 254 mg/dL 0-200 H RISK OF HE ART (test code = DISEASEPublishe d by Cholesterol Total) [place] [employer] Cathie lyte Optimal Borderl ine [...] calculation is LDL/HDL Ratio=L DL Calc/HDL Chol HRFQQXKEXFFH0436-20-71 08:24:0027[facility] HoqzkicSHBSQIBEYMIE9365-53-00 08:24:00 139[facility] SlkojukXKFWCNRHNQXM9782-32-37 08:24:003.6[facility] QLRLWREFBYSC7154-27-95 08:24:000.70[facility] CjxjnhoGOBJIKTUSYCF8082-84-46 08:24:008.4[facility] VhboujxNOEDQLNXMHVF9225-19-04 08:24:98279Ypvuvlyu Rex IVYCAMURFVHN4008-40-40 08:24:0086[facility] XsufsmkTVUZHUDYVNTP9110-24-04 08:24:00 6[facility] XtzzqmxXVRCYXQYXB2877-35-97 08:24:0011.6[facility]annHEMATOLOGY 2019-01-26 08:24:003.78[facility] WqruvsgWMZXNZRUYP7491-92-18 08:24:0013.3[facility] EodlgfmCDBVNHZZIH8053-12-65 08:24:0034.0[facility] EjgmfxwSBUBTJDIRG6190-79-13 08:24:006.3[facility] UdpeupaBVMYPWBGIU7218-03-28 08:24:00 Test Item Value Reference Range Interpretation Comments MCH (test code = MCH) 30.7 pg 27.0-31.0 [facility] QcndxbxMEYSFRZXIE9177-83-68 08:24:0090.3[facility] HermannHEMATOLOGY 2019-01-26 08:24:0034.2[facility] XrhphofEEVQVLLSBH8662-41-56 08:24:49951Kszuuunh FcdxdnuXCKXBJLJNP8226-61-51 08:24:007.5[facility] WobtvekAZHJNGSWKEYG8734-98-27 08:24:008.6[facility] GsdyhnlTCFITRCMLPIX6759-07-58 08:24:91866Ehtpeckp Yonis FOCTZBPAFEAL4847-36-18 08:24:0027[facility] TqwyxjvCVXYHXEPYWCD0329-88-25 08:24:00 139[facility] WbojymeSBWULRZNMROQ0489-35-02 08:24:003.6[facility] WKQVVMGWDRWP0696-26-49 08:24:000.70[facility] PqmmzaoPFWDQJOIWZUR2788-04-68 08:24:008.4[facility] TgyztizGVKMEOHPPWMO6462-70-54 08:24:23237Umbmmtnn Yonis ACMYBYWCKHZX3425-29-21 08:24:0086[facility] TgafeuxBGZEFPTDLXFQ5675-43-92 08:24:00 6[facility] OxtyvsoJLDDIBPOIO3848-44-90 08:24:0011.6[facility] HermannHEMATOLOGY 2019-01-26 08:24:003.78[facility] RbdyhawMELZOLFGYP8414-72-91 08:24:0013.3[facility] NpgnyzuETDQHIEADY8019-66-28 08:24:0034.0[facility] SimapzyDOMSTFGGPC8966-31-38 08:24:006.3[facility] TgllhhbIGRXAPITQP9888-49-78 08:24:00 Test Item Value Reference Range Interpretation Comments MCH (test code = MCH) 30.7 pg 27.0-31.0 [facility] JdutcgpPTROQHWUBF1121-25-97 08:24:0090.3[facility] HermannHEMATOLOGY 2019-01-26 08:24:0034.2[facility] IadzwmnNTCEAUUWJB5798-75-32 08:24:57342Ezcdaxwc IfabuqtZVWTKGBYGX3356-43-41 08:24:007.5[facility] TgqbdnoTWRIYVTTDFRI7864-28-90 08:24:008.6[facility] GednijqYWTPGWGGKVRQ4469-81-60 08:24:51022Rgdizrnr Yonis CHEM AJKEZ1956-05-[birth year] 09:14:31788Covnmiem HermannCHEM WKFYO7180-33-67 09:14:008.5 [facility]annCHEM BRLWW5247-15-87 09:14:0013.3[facility] HermannCHEM PANEL 2019-01-25 09:14:0024[facility] HermannCHEM WIJJH4330-45-23 09:14:99118Ntduoqpl HermannCHEM CXKSQ1490-51-33 09:14:0081[facility]annCHEM PRNXI1306-44-63 09:14:002[facility]annCHEM SUARZ5369-56-15 09:14:003.3[facility]annCHEM FHLQB1893-63-47 09:14:000.60[facility]annCHEM OJMQQ0584-58-08 09:14:24319 [facility]annCHEM JHELP9434-75-65 09:14:48081Hwhggvdv HermannCHEM PANEL 2019-01-25 09:14:008.5[facility] HermannCHEM ZGMFO9560-34-86 09:14:0013.3[facility]annCHEM NNFSK9930-90-17 09:14:0024[facility]annCHEM ATQLA2655-39-39 09:14:78380Lfluwkqu HermannCHEM JVDQV9143-37-97 09:14:0081[facility]annCHEM CFIKA6205-25-73 09:14:002[facility]annCHEM KSDCJ9188-21-90 09:14:003.3 [facility]annCHEM WRGTK3719-18-06 09:14:000.60[facility]annCHEM PANEL 2019-01-25 09:14:54410Eaiywijg HermannMOLECULAR WHTRAWONMK4317-29-76 16:22:00 Negative (01/23/19 11:22 AM)[facility] HermannMOLECULAR XBMTWQNAUQ3301-48-24 16:22:00Negative (01/23/19 11:22 AM)[facility]annCHEM XHNFZ0257-96-48 15:42:00 2.76[facility] HermannCHEM JEJAW5278-54-75 15:42:002.76[facility]annCHEM PANEL 2019-01-23 12:32:000.9[facility]annCHEM SXARP2779-22-93 12:32:000.9[facility]annCHEM IWRKT1488-28-27 10:50:002.0[facility]annCHEM XHKEI6332-28-83 10:50:58460Xbrsbhug HermannCHEM BWVJN2060-59-58 10:50:0023[facility] HermannCHEM XIYDV0871-41-27 10:50:47170Ryvehmqu HermannCHEM JOEZU5602-87-06 10:50:003.1 [facility]annCHEM HWITZ0077-06-12 10:50:39187Fmxwsdnr HermannCHEM PANEL 2019-01-23 10:50:005[facility] HermannCHEM JHHKN5911-53-84 10:50:000.50[facility]annCHEM ZFPTG2030-80-01 10:50:007.8[facility] HermannCHEM GKHWP4733-29-68 10:50:0083[facility]annCHEM KSHZR4783-60-14 10:50:0010.1[facility] Yonis CGHHIQFSYK6574-65-51 10:50:000.2[facility] HpybgoyMFSKDCTKCF9152-71-09 10:50:000.8 [facility] HnspizuMTISFEIDPF3144-71-99 10:50:005.5[facility] HermannHEMATOLOGY 2019-01-23 10:50:002.2[facility] IihxipwKPEZCFLEJD8880-56-72 10:50:000.1[facility] HgedgzvSTOLJECRPT6093-74-74 10:50:0063.6[facility] VhccjrkOPPUEDJGPD9860-42-56 10:50:008.9[facility] TnmubinPSYNZRJISV8600-95-44 10:50:002.3[facility] Yonis FMVFCBOATP8607-02-08 10:50:00Normal (01/23/19 5:50 AM)[facility]annHEMATOLOGY 2019-01-23 10:50:00Normal (01/23/19 5:50 AM)[facility] WhpphxfBUAATIIERP5742-36-16 10:50:0025.1[facility] LdqbkqsOUQMECPPEN0235-26-65 10:50:0013.1[facility] MFKNUKDKMG1570-64-26 10:50:54848Uwgdeqlc MjtidkfZGWCIYEETW1885-92-84 10:50:007.7 [facility] VjzbdzzNOETRHGZVO6938-13-24 10:50:008.6[facility]annHEMATOLOGY 2019-01-23 10:50:0010.0[facility] QkifamiYIOLFCAJXS6802-03-29 10:50:0034.[facility]orial YfugjmuOUJXLAMCJM6488-10-76 10:50:0028.7[facility] WvpkrfrQMCMGULNBW4946-75-44 10:50:0087.8[facility] UyxrogiWIGYNJZDVT0079-20-94 10:50:00 Test Item Value Reference Range Interpretation Comments MCH (test code = MCH) 30.4 pg 27.0-31.0 [facility] BbsriduRMWFJBRVYC2108-81-67 10:50:003.27[facility] HermannHEMATOLOGY 2019-01-23 10:50:65311Udqbbqyr TvwhnkmWRNNVAWVKZ1847-95-96 10:50:007.7[facility] UofrhfqVYIZXDIGQO2416-99-14 10:50:008.emorial BuxxvosXABTUGKBPG5872-99-91 10:50:0010.0[facility] LibbrclLGVLUDPRCU1142-49-32 10:50:0034.6[facility] Yonis CXRNOJCLSF7751-87-99 10:50:0028.7[facility] HermannCHEM KGZBV4320-43-47 10:50:00 2.0[facility] HermannCHEM JBQVQ6843-17-98 10:50:68541Xhottwol HermannCHEM PANEL 2019-01-23 10:50:0023[facility] EfpicgtAWODMSSYWH4876-48-79 10:50:0087.8[facility] HermannCHEM TKTSP0009-22-80 10:50:95399Jkrsfues HermannCHEM GWUHI8591-43-93 10:50:003.1[facility] HermannCHEM CYHVW8803-99-48 10:50:18637Nubmymum HermannCHEM YDHCD3482-72-01 10:50:005[facility]annCHEM YOREP7129-60-87 10:50:000.50 [facility] TpkiyofMAMLTFRADZ9437-70-64 10:50:00 Test Item Value Reference Range Interpretation Comments MCH (test code = MCH) 30.4 pg 27.0-31.0 [facility]annCHEM JKCXS0876-18-65 10:50:007.8[facility] HermannCHEM PANEL 2019-01-23 10:50:0083[facility]annCHEM CIQGS8957-40-43 10:50:0010.1[facility] TgnhodlRSHCNDKUXQ4836-74-62 10:50:000.2[facility] VrzhdrdZRGUYZZGCZ9974-87-45 10:50:000.8[facility] DyolvurPECBAJFUUV3398-63-88 10:50:003.27[facility] Yonis SCHWSJAXUD2757-00-37 10:50:005.5[facility] CegyvyjFWTEMIUCMK9212-10-47 10:50:002.2 [facility] JvhiiomJBUURBKAYR2675-08-61 10:50:000.1[facility]annHEMATOLOGY 2019-01-23 10:50:0063.6[facility] EzljoioVVFICSVMVT3691-24-17 10:50:008.9[facility] IpnflbgNSCWVBGTJI0954-90-70 10:50:002.3[facility] VhscutwPBQRITIJIW9822-17-72 10:50:00Normal (01/23/19 5:50 AM)[facility] SuxsyfaWFFFHPUWRT3544-61-36 10:50:00 Normal (01/23/19 5:50 AM)[facility] PrwvkzyMJEYUFGWPE4927-78-82 10:50:0025.1[facility] NxjecrfVLJGHIFIZM7989-14-04 10:50:0013.1[facility] HermannCHEM YQQPH7124-48-58 11:32:002.4[facility] HermannCHEM NPNYA0248-11-59 11:32:002.4[facility] HermannCHEM MVFQN0748-42-35 09:04:003.0[facility]annCHEM IGKPE0864-36-43 09:04:003.0 [facility]UR[facility] SHPTU2962-51-12 07:14:00 Test Item Value Reference Range Interpretation Comments UA Spec Grav (test code = UA Spec 1.014 1 Grav) [facility] FNRPF9353-69-73 07:14:00 Test Item Value Reference Range Interpretation Comments UA pH (test code = UA pH) 6.0 1 5.0-8.0 [facility] FDJOK6770-75-50 07:14:00Negative (01/22/19 2:14 AM) [facility] NSRAK0094-80-57 07:14:00Negative *NA*(01/22/19 2:14 AM) [facility] KNQJZ4426-52-70 07:14:00Negative *NA*(01/22/19 2:14 AM) [facility] TYYDS0997-83-25 07:14:00Negative *NA*(01/22/19 2:14 AM) [facility] DXVZZ8724-86-84 07:14:00Negative (01/22/19 2:14 AM) [facility] NJCNH4780-55-78 07:14:00Negative (01/22/19 2:14 AM) [facility] PEELW3543-32-43 07:14:00Negative (01/22/19 2:14 AM) [facility] THPTJ5147-10-18 07:14:00<1[facility] PULAS0362-75-40 07:14:0025[facility] IPIWO8986-55-99 07:14:002 [facility] QCLVT7350-24-21 07:14:00Light Yellow *NA*(01/22/19 2:14 AM)[facility] PLWOQ4886-06-86 07:14:00Clear (01/22/19 2:14 AM) [facility] XHVOH2874-13-34 07:14:00 Test Item Value Reference Range Interpretation Comments UA Spec Grav (test code = UA Spec 1.014 1 Grav) [facility] GFLYX7976-54-44 07:14:00 Test Item Value Reference Range Interpretation Comments UA pH (test code = UA pH) 6.0 1 5.0-8.0 [facility] HUPRU7429-43-03 07:14:00Negative (01/22/19 2:14 AM) [facility] YTCHQ6350-67-90 07:14:00Negative *NA*(01/22/19 2:14 AM) [facility] POVQI3790-98-06 07:14:00Negative *NA*(01/22/19 2:14 AM) [facility] OCWUE8931-83-22 07:14:00Negative *NA*(01/22/19 2:14 AM) [facility] RJPHF3077-19-93 07:14:00Negative (01/22/19 2:14 AM) [facility] PMTFX9096-11-21 07:14:00Negative (01/22/19 2:14 AM) [facility] EJNYD6927-38-34 07:14:00Negative (01/22/19 2:14 AM) [facility] AGIHL9909-23-05 07:14:00<1[facility] LJFRO5388-05-75 07:14:0025[facility] COHUV3956-64-76 07:14:002 [facility] YMDOW0511-80-42 07:14:00Light Yellow *NA*(01/22/19 2:14 AM)[facility] QBXHT6816-69-00 07:14:00Clear (01/22/19 2:14 AM) [facility] WcoynbgOOVGP7281-41-24 05:16:000.90[facility] XpxsmshFCBSQ0256-69-52 05:16:000.90[facility]annBLOOD BANK JTSWMPE3936-76-08 05:01:00Negative (01/22/19 12:01 AM)[facility]annCARDIAC KJQCZLC0994-55-71 05:01:00<0.02 [facility]annCARDIAC OTWZAQL6012-73-31 05:01:0049[facility]annCHEM PANEL 2019-01-22 05:01:000.6[facility] HermannCHEM RNMFY9057-01-09 05:01:20462Fjdbndsi HermannCHEM ESMWV7624-14-92 05:01:004.0[facility] HermannCHEM DCDCC6707-02-43 05:01:0017[facility]annCHEM YSTBT9811-53-90 05:01:0025[facility]annCHEM FFRLQ0091-41-99 05:01:008.1[facility]annCHEM HWCQC8869-00-18 05:01:00 Test Item Value Reference Range Interpretation Comments B/C Ratio (test code = B/C Ratio) 20 1 6-25 [facility]annCHEM UQMZU1682-89-80 05:01:00 Test Item Value Reference Range Interpretation Comments A/G Ratio (test code = A/G Ratio) 1.0 1 0.7-1.6 [facility]annCHEM HQSLQ7255-21-23 05:01:004.1[facility] HermannCHEM PANEL 2019-01-22 05:01:006.90[facility] RoikfcbPOSYZPCCYLFCW8501-89-84 05:01:00Negative *NA*(01/22/19 12:01 AM)[facility] OmjbchqXPKLHCYMEJ0773-72-10 05:01:000.1[facility] YwkwwtsYYMIUXFXIG9276-05-54 05:01:000.7[facility] GzinazzBXSTEEMHYA1825-48-58 05:01:000.0[facility] QjudehwMKBTBUHYDH9098-55-40 05:01:000.0[facility] SMVQLKOYWY5127-38-00 05:01:000.9[facility] FcowyvtTJFNLUCWCO8444-76-31 05:01:008.6 [facility] UvdaacgNWFGFPMCTT6163-64-31 05:01:000.6[facility]annHEMATOLOGY 2019-01-22 05:01:0086.5[facility] NyhelmvZRHCAIBSIF2870-85-79 05:01:005.7[facility] PsjbwebXSVDYCAWXB3762-31-70 05:01:006.9[facility] BgrnbgaTXOOYWBSAX0735-94-87 05:01:009.9[facility] PomhulhAOYYCPOWFD6919-45-31 05:01:0032.8[facility] CMJSWMSIMU4993-30-57 05:01:0013.6[facility] XpfptclOMKATLZYMU9822-41-04 05:01:00 443[facility] JaiziqoGRCJJFZQRN2592-29-19 05:01:007.3[facility]annHEMATOLOGY 2019-01-22 05:01:0014.0[facility] TyelohoECDDCODIDA5434-88-58 05:01:004.85[facility] XjgsmafYLYHICZBMJ8036-48-38 05:01:0042.7[facility] XximvyaCBINRNLDWX4603-80-82 05:01:00 Test Item Value Reference Range Interpretation Comments MCH (test code = MCH) 29.0 pg 27.0-31.0 [facility]DooojrpKECINBOGRZ2947-39-13 05:01:0088.2[facility]annHEMATOLOGY 2019-01-22 05:01:00 Test Item Value Reference Range Interpretation Comments INR (test code = INR) 0.96 1 0.85-1.17 [facility] CenterBwliwkmNDHHQKTUST0592-01-34 05:01:00 Test Item Value Reference Range Interpretation Comments PT (test code = PT) 12.6 s 12.0-14.7 [facility] CenterUvpyholKGEVWICXPE1068-83-60 05:01:00 Test Item Value Reference Range Interpretation Comments PTT (test code = PTT) 25.9 s 22.9-35.8 [facility] GCIPJVO9018-74-07 05:01:00Negative (3/31/19 12:01 AM) [facility]annCARDIAC OGDJDWM3062-76-38 05:01:00<0.02[facility] CARDIAC AUDIDIT8488-56-90 05:01:0049[facility] HermannCHEM RGSFP8467-74-82 05:01:000.6[facility] HermannCHEM JYPUQ6975-47-25 05:01:06620Tcvudxah HermannCHEM GHPWO8504-34-41 05:01:004.0[facility] HermannCHEM BOKBF8826-12-69 05:01:0017 [facility]annCHEM LRCUA6640-87-76 05:01:0025[facility]annCHEM PANEL 2019-01-22 05:01:008.1[facility] HermannCHEM CISZP9055-65-16 05:01:00 Test Item Value Reference Range Interpretation Comments B/C Ratio (test code = B/C Ratio) 20 1 6-25 [facility]annCHEM QRDVC7241-35-08 05:01:00 Test Item Value Reference Range Interpretation Comments A/G Ratio (test code = A/G Ratio) 1.0 1 0.7-1.6 [facility]annCHEM VWDLT4077-78-89 05:01:004.1[facility]annCHEM PANEL 2019-01-22 05:01:006.90[facility] PdndxhhXXKFQERRRBAAC0786-58-35 05:01:00Negative *NA*(01/22/19 12:01 AM)[facility] CuvxudzMVYXFXOIKT7253-22-37 05:01:000.1[facility] KnbougvYALKZPURIM2793-83-17 05:01:000.7[facility] OdjeuxmEPYYNBMDNY9037-55-46 05:01:000.0[facility] EedhxilQPFCGHSFJJ9120-63-21 05:01:000.0[facility] Yonis VDBEWEKNKP8318-85-60 05:01:000.9[facility] NgtbxubLNJBZQCWWP5682-41-78 05:01:008.6 [facility] TstnohbJOJQSRECGD6047-31-75 05:01:000.6[facility]annHEMATOLOGY 2019-01-22 05:01:0086.5[facility] BuofoseKBBFJAZFXV1563-70-25 05:01:005.7[facility] WuecrdgOPIXPAGKGN5558-60-26 05:01:006.9[facility] QtrrsgwBQXVSLADDK1243-18-30 05:01:009.9[facility] OgoxbdqYZXJRPYXLN7143-72-80 05:01:0032.8[facility] YCNJNGQVTN4546-48-91 05:01:0013.6[facility] XujqcrsVANFQMUFGO9251-16-45 05:01:00 443[facility] MejlijnGFPSTBAELW0457-03-26 05:01:007.3[facility]annHEMATOLOGY 2019-01-22 05:01:0014.0[facility] VmsohbgIMIDHHFLYH9611-80-38 05:01:004.85[facility] FbosolpFDOQTJSASG0162-56-58 05:01:0042.7[facility] GmrltmmLTHJFHYSVT4100-67-22 05:01:00 Test Item Value Reference Range Interpretation Comments MCH (test code = MCH) 29.0 pg 27.0-31.0 [facility]ED1187[facility]-50 05:01:0088.2[facility] 2019-01-22 05:01:00 Test Item Value Reference Range Interpretation Comments INR (test code = INR) 0.96 1 0.85-1.17 [facility]Adr[facility]prhCJXWJUKQLS8405-26-19 05:01:00 Test Item Value Reference Range Interpretation Comments PT (test code = PT) 12.6 s 12.0-14.7 [facility] HospitalIcvmbufOFJTDNQJKM9899-93-82 05:01:00 Test Item Value Reference Range Interpretation Comments PTT (test code = PTT) 25.9 s 22.9-35.8 [facility]NkminngKSS5D2063-41-28 14:36:00 Test Item Value Reference Range Interpretation [...] Benzodiazepine (test Negative Negative N code = IFNA) Cocaine (test code = Negative Negative N COCA) Methadone (test code Negative Negative N = MTHD) Opiates (test code = Negative Negative N OPIA) PCP (test code = PCP) Negative Negative N Propoxyphene (test Negative Negative N code = PROPOX) THC (test code = THC) Negative Negative N Alcohol, Urine (test <0.01 g/dL 0.00-0.01 N code = ETOHU) Comprehensive Metabolic [id number] 14:36:00 Test Item Value Reference Range Interpretation [...] the [employer],http :[email or web address] ep.nih.gov Urinalysis Csalxsth2524-48-11 14:32:00 Test Item Value Reference Range Interpretation Comments Color (test code = COLOR) Yellow Yellow,Straw,Pl N yellow Clarity (test code = Clear Clear N CLAR) Specific [place] (test 1.024 1.001-1.035 N code = SPGR) [...] code = Few /HPF BACT) CBC with Udbojzxooxle9084-81-22 14:21:00 Test Item Value Reference Range Interpretation [...] code = ALYMPH) 3.0 K/cumm 0.5-4.6 N [place] Abs (test code = AMONO) 0.5 K/cumm 0.0-1.2 N Eos Abs (test code = AEOS) 0.19 K/cumm 0.00-0.74 N Baso Abs (test code = ABASO) 0.1 K/cumm 0.00-0.21 N
--- NOTE | 2021-10-20 10:32 | ER ---
Nurse's Notes [facility] Name: Tiffany Quinn Age: 51 yrs Sex: Female : 1970 Arrival Date: 10/20/2021 Time: 10:02 Bed Waiting Private MD: Diagnosis: Encounter for examination of blood pressure without abnormal findings Presentation: 10/20 10:29 Chief complaint: Patient states: she wants to make sure her blood pressure is okay ap3 after receiving new medication. Coronavirus screen: At this time, the client does not indicate any symptoms associated with coronavirus-19. Ebola Screen: No symptoms or risks identified at this time. Initial Sepsis Screen: Does the patient meet any 2 criteria? No. Patient's initial sepsis screen is negative. Does the patient have a suspected source of infection? No. Patient's initial sepsis screen is negative. Risk Assessment: Do you want to hurt yourself or someone else? Patient reports no desire to harm self or others. Onset of symptoms. 10:29 Method Of Arrival: Ambulatory ap3 10:29 Acuity: MANUEL 5 ap3 Triage Assessment: 10:31 Headache History: The patient has had previous headaches and this one is less severe ap3 than previous episodes. General: Appears in no apparent distress. Behavior is anxious. Pain: Denies pain. Pain currently is 0 out of 10 on a pain scale. Pain began na Also complains of no other associated symptoms. Neuro: Level of Consciousness is awake, alert, obeys commands, Oriented to person, place, time, situation, Appropriate for age. Respiratory: Airway. 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 - Social history:: Smoking status: Patient reports the use of cigarette tobacco products, denies chronic smoking, but will smoke occasionally, Patient uses street drugs, Methamphetamine (Meth). Screenin:31 Abuse screen: Denies threats or abuse. Nutritional screening: No deficits noted. ap3 Tuberculosis screening: No symptoms or risk factors identified. Fall Risk None identified. Vital Signs: 10:29 BP 120 / 74; Pulse 76; Resp 17; Temp 97.8(O); Pulse Ox 98% on R/A; Weight 95.25 kg; ap3 ED Course: 10:02 Patient arrived in ED. ds1 10:30 Triage completed. ap3 10:30 Beat[facility]ede[facility]C [facility]. kb 10:30 Bill Palm MD is Attending Physician. kb 10:32 Arm band placed on right wrist. ap3 10:32 Patient has correct armband on for positive identification. Call light in reach. Pulse ap3 ox on. NIBP on. 10:32 No provider procedures requiring assistance completed. Patient did not have IV access ap3 during this emergency room visit. Administered Medications: No medications were administered Outcome: 10:31 Discharge ordered by . kb 11:08 Discharged to home ambulatory. ap3 11:08 Condition: good 11:08 Discharge instructions given to patient, Instructed on discharge instructions, follow up and referral plans. Demonstrated understanding of instructions, follow-up care. 11:08 Patient left the ED. ap3 Signatures: Beatrice Ledezma FNP-C FNP-Ckb Sanford, Demi ds1 Shawna Lim, RN RN ap3
--- NOTE | 2021-10-20 10:32 | EDPHYS ---
Physician Documentation [facility] Name: Tiffany Quinn Age: 51 yrs Sex: Female : 1970 Arrival Date: 10/20/2021 Time: 10:02 Bed Waiting Private MD: ED Physician Bill Palm HPI: 10/20 10:38 This 51 yrs old Female presents to ER via Ambulatory with complaints of Blood Pressure kb Problem, Headache. 10:38 "I just wanted to get my blood pressure checked to make sure it is good. I don't need kb any medicine or anything.". Onset: The symptoms/episode began/occurred today. Severity of symptoms: At their worst the symptoms were very mild in the emergency department the symptoms are unchanged. The patient has experienced similar episodes in the past. The patient has been recently seen at the [facility] Emergency Department. 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 - Social history:: Smoking status: Patient reports the use of cigarette tobacco products, denies chronic smoking, but will smoke occasionally, Patient uses street drugs, Methamphetamine (Meth). ROS: 10:38 Constitutional: Negative for fever, chills, and weight loss. kb 10:38 All other systems are negative. Exam: 10:38 Constitutional: This is a well developed, well nourished patient who is awake, alert, kb and in no acute distress. Head/Face: Normocephalic, atraumatic. ENT: Moist Mucous membranes Respiratory: Respirations even and unlabored. No increased work of breathing. Talking in full sentences Skin: Warm, dry with normal turgor. Normal color. MS/ Extremity: Pulses equal, no cyanosis. Neurovascular intact. Full, normal range of motion. Neuro: Awake and alert, GCS 15, oriented to person, place, time, and situation. Moves all extremities. Normal gait. Psych: Awake, alert, with orientation to person, place and time. Behavior, mood, and affect are within normal limits. Vital Signs: 10:29 BP 120 / 74; Pulse 76; Resp 17; Temp 97.8(O); Pulse Ox 98% on R/A; Weight 95.25 kg; ap3 MDM: 10:31 Patient medically screened. kb 10:38 Data reviewed: vital signs, nurses notes. Data interpreted: Pulse oximetry: on room air kb is 98 %. Interpretation: normal. Counseling: I had a detailed discussion with the patient and/or guardian regarding: the historical points, exam findings, and any diagnostic results supporting the discharge/admit diagnosis, the need for outpatient follow up, a family practitioner, to return to the emergency department if symptoms worsen or persist or if there are any questions or concerns that arise at home. Administered Medications: No medications were administered Disposition Summary: 10/20/21 10:31 Discharge Ordered Location: Home kb Condition: Stable kb Diagnosis - Encounter for examination of blood pressure without abnormal findings kb Followup: kb - With: Emergency Department - When: As needed - Reason: Worsening of condition Followup: kb - With: Private Physician - When: 2 - 3 days - Reason: Recheck today's complaints, Continuance of care, Re-evaluation by your physician Discharge Instructions: - Discharge Summary Sheet kb - How to Take Your Blood Pressure, [id number] kb Forms: - Medication Reconciliation Form kb - Thank You Letter kb - Antibiotic Education kb - Prescription Opioid Use kb Addendum: 10/21/2021 12:50 Co-signature as Attending Physician, Bill Palm MD I agree with the assessment and c rivero plan of care. Signatures: Beatrice Ledezma, TITA-C P[employer] FEEDER-Bill Luis MD MD cha Prokisch, Amanda, RN RN ap3
[2021-10-20 11:23] VITALS: BP 120/74; TEMP 97.8; O2SAT 98
== END 2021-10-20 11:08 | disposition home or self-care (01) ==
LOC: ER 10:00
DX: Z01.30 Encounter for examination of blood pressure without abnormal findings (principal); F31.9 Bipolar disorder, unspecified; Z72.0 Tobacco use; Z88.5 Allergy status to narcotic agent; Z88.8 Allergy status to other drugs, medicaments and biological substances
CPT/HCPCS: 99283

== ENCOUNTER 2021-10-25 19:25 | Emergency (ER) | payer OTHER ==
--- OUTSIDE RECORDS SUMMARY | 2021-10-25 19:32 | XMS REPORT | Continuity of Care Document ---
:1970 Author Organization [facility] t Address [address] [place] [address] Care Team Providers Name Role Phone UNKNOWN Primary Care Physician Unavailable Ronnell Attending Clinician Unavailable Sanchez SNOW Attending Clinician SANCHEZ Attending Clinician Unavailable Julia HOFFMANN S Attending Clinician Doctor Unassigned, Name Attending Clinician Unavailable Singer ESCALANTE Attending Clinician Attending Clinician Unavailable Humaira-Mbayo_A_AH Attending Clinician Unavailable Chente Attending Clinician Unavailable Chente Attending Clinician Unavailable AFUWAPE Attending Clinician Unavailable Physician, Primary or Family Admitting Clinician Unavailyanna BRADFORD Admitting Clinician Unavailable Humaira-Mbayo_A_AH Admitting Clinician Unavailable Chente Admitting Clinician Unavailable ALEXYSUWKYRA Admitting Clinician Unavailable Payers Payer Name Policy Type Policy Number Effective Date Expiration Date S nasim [facility] [place] - [id number] 2020 [employer] 00:00:00 (MEDICARE REPLACEMENT/ADVANT AGE - HMO) Problems Condition Condition Condition Status Onset Resolution Last Treating Co mments Source Name Details Category Date Date Treatment Clinician Date LOW PB Diagnosis Active 2019-01-22 Mem oria 01-21 01:52:00 l LOW PB 00:00: [place] 00 Active 01/21/2019 [facility] INFECTIOUS Diagnosis Active 2019-02-06 Memoria GASTROENTE 01-21 08:58:00 l RITIS AND 00:00: [place] COLITIS INFECTIOUS 00 GASTROENTE RITIS AND COLITIS Active 01/21/2019 [facility] Irregular Irregular Disease Active Uni vers menstrual menstrual 8-15 ity of cycle cycle 00:00: [address] Skin Skin Disease Active Univers lesion lesion 8-15 ity of 00:00: [address] Psychiatri Psychiatri Disease Active U nivers c disorder c disorder 8-15 it y of 00:00: [address] Well woman Well woman Disease Active U nivers exam with exam with 8-15 ity of routine routine 00:00: [place] gynecologi gynecologi 00 Me dical nicky exam nicky exam Branch INFECTIOUS Diagnosis Active 2019-02-06 Memoria GASTROENTE 08:58:00 l RITIS AND Yonis COLITIS, INFECTIOUS GASTROENTE RITIS AND COLITIS, Active [facility] Allergies, Adverse Reactions, Alerts Allergy Allergy Status Severity Reaction(s) Onset Inactive Treating Comm ents Source Name Type Date Date Clinician promanaa DA Active [place] ANXIETY [facility] zine 1-01 Clear 00:00: Catherine 00 [facility] prometha DA Active U [facility] zine 7-04 Clear 00:00: Catherine 00 [facility] NO KNOWN Drug Active Univers ALLERGIE Class ity of S [facility] Phenerga Phenerga Active [place] Social History Social Habit Start Date Stop Date Quantity Comments Source History of Cigarette Smoker Universi ty of tobacco use [facility] Tobacco Comment 2-3 cigs a day Unive rsity of [facility] Exposure to Not sure University of SARS-CoV-2 [facility] (event) [place] Tobacco use and 2016-06-08 2016-06-08 Never used Universit y of exposure 00:00:00 00:00:00 [facility] Alcohol intake 2016-06-08 2016-06-08 0 /d University of 00:00:00 00:00:00 [facility] Sex Assigned At [birth year] Universit y of 00:00:00 00:00:00 [facility] Smoking Status Start Date Stop Date Source Social History 2019-01-22 05:00:12 Jeanne urena Current some day smoker 2016-06-08 00:00:00 [facility] Medications Ordered Filled Start Stop Current Ordering Indication Dosage Frequency Signature Comments Components Source Medication Medication Date Date Medication? Clinician (SIG) Name Name cefTRIAXone 2020-10 No 1000mg 1,000 mg, Univers (ROCEPHIN) 11-10 IV ity of 1,000 mg in 08:30: 08:01 Piggyback, [place] NaCl 0.9% 00 :00 ONCE, 1 Medical (NS) 50 mL dose, On Bran h MINI-BAG Wed09/10/21 at 0230, Administer over 30 Minutes, 50 mL
Reas on for Anti-Infec tive: Documented Infection< br>Documen ngozi Infection Site: Urine<br&g t;Duration of Therapy: Other (see Comments) ondansetron 2020-10 No 4mg 4 mg, Slow Univers (ZOFRAN 11-10 IV Push, ity of (PF)) 06:45: 05:54 ONCE, 1 [place] injection 4 00 :00 dose, On Medi nicky mg Wed [place] 09/10/21 at 0045, RANDA NaCl 0.9% 2020-10- No 1000mL at 999 Uni vers (NS) bolus 11-10 mL/hr, ity of infusion 05:30: 05:30 1,000 mL, Joe as 1,000 mL 00 :00 IV Medical Infusion, Branch ONCE, 1 dose, On 09/09/21 at 2330, RANDA amoxicillin 2020-10 Yes [id number] 500mg Take 1 Univers 500 mg 11-10 capsule by ity of capsule 00:00: mouth 3 [place] 00 (three) Medical times Branch daily. ondansetron 2019-10- No 4mg 4 mg, Univ ers (ZOFRAN-ODT 12-01 Oral, ity of ) 15:15: 14:16 ONCE, 1 [place] disintegrat 00 :00 dose, Mon Med ical ing tablet 09/30/[address] [facility] nc 4 mg 0915, Routine ondansetron 2019-10 2020- No 4mg 4 mg, [facility] (ZOFRAN-ODT 2-07 12-07 Oral, ity of ) 14:30: 13:32 ONCE, 1 [place] disintegrat 00 :00 dose, Mon Med ical ing tablet 09/30/20 at [facility] 4 mg 0830, Routine ondansetron 2019-10 Yes [id number] 4mg Take 1 Univers 4 mg 2-07 tablet by ity of disintegrat 00:00: mouth [place] ing tablet 00 every 8 Medica l (eight) Branch hours as needed for Nausea and Vomiting (N/V). ondansetron 2019-10 Yes [id number] 4mg Take 1 Univers 4 mg 2-07 tablet by ity of disintegrat 00:00: mouth [place] ing tablet 00 every 8 Medica l (eight) Branch hours as needed for Nausea and Vomiting (N/V). ondansetron 2019-10 Yes [id number] 4mg Take 1 Univers 4 mg 2-07 tablet by ity of disintegrat 00:00: mouth [place] ing tablet 00 every 8 Medica l (eight) Branch hours as needed for Nausea and Vomiting (N/V). ondansetron 2019-10 Yes [id number] 4mg Take 1 Univers 4 mg 2-07 tablet by ity of disintegrat 00:00: mouth [place] ing tablet 00 every 8 Medica l (eight) Branch hours as needed for Nausea and Vomiting (N/V). ciprofloxac Yes 500 mg = 1 Memoria in 500 mg 4-04 tab, PO, l oral tablet 17:35: [id number], X [place] 00 4 day, # 8 tab, 0 Refill(s) Ondansetron 2019 Yes 4 mg = 1 Me moria 4 MG Oral 4-04 tab, PO, l Tablet 17:35: Q6H, PRN [place] [Zofran] 00 Nausea/Vom iting, # 20 tab, 0 Refill(s) tramadol 2019- Yes 50 mg = 1 Estrada doni hydrochlori 4-04 tab, PO, l de 50 MG 17:35: Q6H, PRN Deloris nn Oral Tablet 00 Pain Score 1-3, X 5 day, # 20 tab, 0 Refill(s) Metronidazo 2019-0 Yes 500 mg = 1 Memoria le 500 MG 4-04 tab, PO, l Oral Tablet 17:35: [id number], X H ermann 00 4 day, # 12 tab, 0 Refill(s) ciprofloxac 2018- Yes 500 mg = 1 Memoria in 500 mg 4-04 tab, PO, l oral tablet 17:35: [id number], X [place] 00 4 day, # 8 tab, 0 Refill(s) Ondansetron 2019- Yes 4 mg = 1 Me moria 4 MG Oral 4-04 tab, PO, l Tablet 17:35: Q6H, PRN [place] [Zofran] 00 Nausea/Vom iting, # 20 tab, [...] 4-03 (Same as: l 13:26: K-Dur 20) [place] 00 "Do Not Crush" Give with food and full glass of water For patients unable to swallow tablet, dissolve in one half glass of water. Allow about 2 minutes for the tablets to disintegra te. Stir before giving to prepare slurry and administer . Please exclude Patient s with feeding tube less than 14 Ivorian (Dobhoff, J-tube etc) and pediatric and patients. [...] s with feeding tube less than 14 Ivorian (Dobhoff, J-tube etc) and pediatric and patients. Strattera 2019-0 No 0.5 mg/kg, Me moria 4-02 Route: PO, l 14:00: QAM, Dosing Weight 75, kg, Start date: 01/24/19 9:00:00 CDT, Duration: 30 day, Stop date: 02/22/19 9:00:00 CDT Strattera 0 No 0.5 mg/kg, Me moria 4 Route: [...] a 4-01 (Same as: l 22:00: Risperdal) era No 1 mg, Memoria - Route: PO, l 22:00: QPM, Dosing Weight 75, kg, Start date: 01/23/19 17:00:00 CDT, Duration: 30 day, Stop date: 02/21/19 17:00:00 CDT Risperdal No Notes: Memori a 4-01 (Same as: l 22:00: Risperdal) ttera No 1 mg, Memoria 4- Route: PO, [...] ia - (Same As: l 18:00: KlonoPIN) [place] 00 Clonazepam No Notes: Memor ia 4- (Same As: l 18:00: KlonoPIN) Yonis 00 Flagyl No Notes: Memoria - (Same as: l 15:00: Flagyl) [place] Take with food/ avoid alcohol Cipro No Notes: May Memori a - interfere l 15:00: w/enteral Yonis 00 feedings - Take 1 hr before or 2 hrs after antacids, dairy pdt & minerals. On empty stomach. Flagyl No Notes: Memoria 4- (Same as: l 15:00: Flagyl) [place] 00 Take with food/ avoid alcohol Cipro [...] Yonis tablet, 00 Refill(s) extended release Metronidazo 2019 No 500 mg, Mem oria le 500 MG 4-01 PO, l Oral Tablet 14:20: [id number], 0 H ermann [Flagyl] 00 Refill(s) Ciprofloxac 2019 No 500 mg, Mem oria in 500 MG 4-01 PO, l Oral Tablet 14:20: [id number], 0 [place] [Cipro] 00 Refill(s) potassium 2019 Yes 40 mEq, Memor ia chloride 20 4-01 PO, ONCE, l mEq oral 14:20: 0 [place] tablet, 00 Refill(s) extended release Metronidazo No 500 mg, Mem oria le 500 MG 4-01 PO, l Oral Tablet 14:20: [id number], 0 H ermann [Flagyl] 00 Refill(s) Ciprofloxac No 500 mg, Mem oria in 500 MG 4-01 PO, l Oral Tablet 14:20: [id number], 0 [place] [Cipro] 00 Refill(s) Potassium No Notes: Memori a Chloride 4-01 (Same [...] s with feeding tube less than 14 Ivorian (Dobhoff, J-tube etc) and pediatric and patients. Potassium No Notes: Memori a Chloride 4-01 (Same [...] s with feeding tube less than 14 Ivorian (Dobhoff, J-tube etc) and pediatric and patients. Pepcid 2019 No Notes: Memoria 3-31 (Same as: l 22:00: Pepcid) Y[place] 00 Pepcid No Notes: Memoria 3-31 (Same as: l 22:00: Pepcid) Strattera 20190 Yes 0.5 mg/kg, Me moria 3-31 PO, QAM, 0 l 21:08: Refill(s) lithium 450 20190 Yes 450 mg = 1 Memoria mg oral 3-31 tab, PO, l tablet, 21:08: Bedtime, # Herm stephon extended 00 60 tab, 0 release Refill(s) clonazePAM 2019 Yes 0.5 mg = 1 M emoria 0.5 mg oral 3-31 tab, PO, l tablet 21:08: TID, # 90 Reji n 00 tab, 0 Refill(s) Risperidone Yes 0.5 mg = 1 Memoria 0.5 MG Oral 3-31 tab, PO, l Tablet 21:08: BID, 0 [place] [Risperdal] 00 Refill(s) Strattera Yes 0.5 mg/kg, [...] l 15:03: 400mg/day. (Same As: Ultram) Tramadol 0 No Notes: Not Mem oria 3-31 to exceed l 15:03: 400mg/day. Yonis 00 (Same As: Ultram) normal 0 No 1,000 mL, Memori a saline 0.9% 01-22 Rate: 150 l IV 1,000 mL 09:48: ml/hr, Herm stephon Infuse over: 6.7 hr, Route: IV, Dosing Weight 75.994 kg, Total Volume: 1,000, Start date: 01/22/19 4:48:00 CDT, Duration: 30 day, Stop date: 02/21/19 4:47:00 CDT normal 2018- No 1,000 mL, Memori a [...] 01-22 Route: IM, l 09:47: Drug form: PDR/INJ, PRN, Dosing Weight 75.994, kg, PRN Blood Glucose Results, Start date: 01/22/19 4:47:00 CDT, Duration: 30 day, Stop date: 02/21/19 4:46:00 CDT Dextrose 0 No 12.5 gm, Memor ia 50% Syringe 01-22 25 mL, l 09:47: Route: IVP, Drug Form: INJ, Dosing Weight 75.994, kg, PRN, PRN Blood Glucose Results, Start date: 01/22/19 4:47:00 CDT, Duration: 30 day, Stop date: 02/21/19 4:46:00 CDT Ondansetron 0 No Notes: Estrada doni - (Same as: l 09:47: Zofran) Yonis MEDICATION WASTE Product Size: 4 mg Product Wasted: ___ mg Glucagon No 1 mg, Memoria 01-22 Route: IM, l 09:47: Drug form: [place] 00 PDR/INJ, PRN, Dosing Weight 75.994, kg, PRN Blood Glucose Results, Start date: 01/22/19 4:47:00 CDT, Duration: 30 day, Stop date: 02/21/19 4:46:00 CDT Dextrose No 12.5 gm, Memor ia 50% Syringe 01-22 25 mL, l 09:47: Route: [place] 00 IVP, Drug Form: INJ, Dosing Weight 75.994, kg, PRN, PRN Blood Glucose Results, Start date: 01/22/19 4:47:00 CDT, Duration: 30 day, Stop date: 02/21/19 4:46:00 CDT Zofran 0 No Notes: Memoria 3-31 (Same as: l 08:56: Zofran) Yonis MEDICATION WASTE Product Size: 4 mg Product Wasted: ___ mg Zofran No Notes: Memoria 3-31 (Same as: l 08:56: Zofran) Y[place] MEDICATION WASTE Product Size: 4 mg Product Wasted: ___ mg NS (Bolus) No 1,000 mL, Me moria IV 01-22 1,000 l 08:52: ml/hr, Yonis Infuse Over: 1 hr, Route: [...] Memoria 3-31 (Same as: l 06:10: Zosyn) [place] 00 Dosing based on Piperacill in component [...] moria IV 3-31 1,000 l 05:44: ml/hr, [place] 00 Infuse Over: 1 hr, Route: IV, [...] Memoria 3-31 (Same as: l 04:52: Zofran) [place] 00 MEDICATION WASTE Product Size: 4 mg Product Wasted: ___ mg Saline No Notes: Memoria Flush 0.9% 3-31 Same as: l 04:52: BD [place] 00 Posiflush Sterile NS (Bolus) No 1,000 mL, Me moria IV 3-31 1,000 l 04:51: ml/hr, Infuse Over: 1 hr, Route: IV, 1,000, Drug form: INJ, ONCE, Priority: STAT, Dosing Weight 75.994 kg, Start date: 01/21/19 23:51:00 CDT, Stop date: 01/21/19 23:51:00 CDT NS (Bolus) No 1,000 mL, Me moria IV - 1,000 l 04:51: ml/hr, Infuse Over: 1 [...] tablet by ity of HYDROCHLORI 00:00: mouth [place] DE,) 4 mg 00 every 8 Medical tablet (eight) Branch hours. ondansetron 2017-0 Yes 4mg Take 1 Univ ers (ZOFRAN, 1-27 tablet by ity of HYDROCHLORI 00:00: mouth [place] DE,) 4 mg 00 every 8 Medical tablet (eight) Branch hours. ibuprofen 2016-0 Yes 200mg Take 200 Uni vers (ADVIL) 200 8-15 mg by ity of mg tablet 19:02: mouth [place] [address] every 6 Medical (six) Branch hours as needed. CLONAZEPAM 2016-0 Yes Take by Uni vers (KLONOPIN 8-15 mouth. ity of ORAL) 19:02: [address] Branch CITALOPRAM 2016-0 Yes Take by Uni vers HYDROBROMID 8-15 mouth. ity of E 19:02: [place] (CITALOPRAM 27 Medical ORAL) Branch ibuprofen 2016-0 Yes 200mg Take 200 Uni vers (ADVIL) 200 8-15 mg by ity of mg tablet 14:02: mouth [place] [address] every 6 Medical (six) Branch hours as needed. CLONAZEPAM 2016-0 Yes Take by Uni vers (KLONOPIN 8-15 mouth. ity of ORAL) 14:02: [address] Branch CITALOPRAM 2016-0 Yes Take by Uni vers HYDROBROMID 8-15 mouth. ity of E 14:02: [place] (CITALOPRAM 27 Medical ORAL) Branch ibuprofen 2016-0 Yes 200mg Take 200 Uni vers (ADVIL) 200 8-15 mg by ity of mg tablet 14:02: mouth [place] [address] every 6 Medical (six) Branch hours as needed. CLONAZEPAM 2016-0 Yes Take by Uni vers (KLONOPIN 8-15 mouth. ity of ORAL) 14:02: [address] Branch CITALOPRAM 2016-0 Yes Take by Uni vers HYDROBROMID 8-15 mouth. ity of E 14:02: [place] (CITALOPRAM 27 Medical ORAL) Branch ibuprofen 2016-0 Yes 200mg Take 200 Uni vers (ADVIL) 200 8-15 mg by ity of mg tablet 14:02: mouth [place] [address] every 6 Medical (six) Branch hours as needed. CLONAZEPAM 2016-0 Yes Take by Uni vers (KLONOPIN 8-15 mouth. ity of ORAL) 14:02: [place] 27 Medical Branch CITALOPRAM Yes Take by Uni vers HYDROBROMID 8-15 mouth. ity of E 14:02: [place] (CITALOPRAM 27 Medical ORAL) Branch misoprostol Yes [...] 00 Medical 50-325-40 Branch mg tablet butalbital- Yes TK 1 TO 2 U nivers acetaminoph 8-01 T PO Q 8 H it y of en-caff 00:00: PRN. [place] (ESGIC) 00 Medical 50-325-40 Branch mg tablet butalbital- Yes TK 1 TO 2 U nivers acetaminoph 8-01 T PO Q 8 H it y of en-caff 00:00: PRN. [place] (ESGIC) 00 Medical 50-325-40 Branch mg tablet butalbital- Yes TK 1 TO 2 U [...] ity of mg tablet 00:00: every 6 [place] 00 (six) Medical hours as Branch needed [...] ity of mg tablet 00:00: every 6 [place] 00 (six) Medical hours as Branch needed for Pain (scale 4-6). naproxen 2014-10 Yes 500mg Take 1 Tab Un parul (NAPROSYN) 1-16 by mouth 2 ity of 500 mg 00:00: (two) [place] tablet 00 times Medical daily with Branch meals. Vital Signs Vital Name Observation Time Observation Value Comments Source Systolic blood 2021-09-10 08:01:00 138 mm[Hg] [facility] Diastolic blood 2021-09-10 08:01:00 97 mm[Hg] [facility] Heart rate 2021-09-10 08:01:00 87 /min [facility] Respiratory rate 2021-09-10 08:01:00 20 /min [facility] Oxygen saturation in 2021-09-10 08:01:00 98 /min [facility] Arterial blood by [facility] Pulse oximetry Branch Body temperature 2021-09-10 04:28:51 37.17 Ruthann [facility] Body height 2021-09-10 04:26:00 154.9 cm [facility] Body weight 2021-09-10 04:26:00 81.647 kg [facility] BMI 2021-09-10 04:26:00 34.01 kg/m2 [facility] Systolic blood 2021-09-09 20:06:00 150 mm[Hg] Univer sity of pressure [place] [facility] Diastolic blood 2021-09-09 20:06:00 89 mm[Hg] Unive rsity of pressure [place] [facility] Heart rate 2021-09-09 20:06:00 108 /min [facility]i [facility] [place] [facility] Body temperature 2021-09-09 20:06:00 37.22 Ruthann Univ ers[facility] [place] [facility] Respiratory rate 2021-09-09 20:06:00 18 /min Univ ers[facility] [place] [facility] Oxygen saturation in 2021-09-09 20:06:00 99 /min University of Arterial blood by [place] [employer] nicky Pulse oximetry Branch Body weight 2021-09-09 20:05:00 81.647 kg [facility] [place] [facility] BMI 2021-09-09 20:05:00 32.40 kg/m2 [facility] [place] [facility] Systolic blood 2020-09-30 14:00:00 126 mm[Hg] Univer sity of pressure [place] [facility] Diastolic blood 2020-09-30 14:00:00 84 mm[Hg] Unive rsity of pressure [place] [facility] Heart rate 2020-09-30 14:00:00 79 /min [facility]i [facility] [place] [facility] Oxygen saturation in 2020-09-30 14:00:00 98 /min University of Arterial blood by [place] [employer] nicky Pulse oximetry Branch Body temperature 2020-09-30 13:26:00 37.22 Ruthann Univ ers[facility] [place] [facility] Respiratory rate 2020-09-30 13:26:00 16 /min Univ [facility] [place] [facility] Body weight 2020-09-30 13:26:00 72.576 kg [facility] [place] [facility] BMI 2020-09-30 13:26:00 28.80 kg/m2 [facility] [place] [facility] Systolic blood 2020-09-30 14:00:00 126 mm[Hg] Univer sity of pressure [place] [facility] Diastolic blood 2020-09-30 14:00:00 84 mm[Hg] Unive rsity of pressure [place] [facility] Heart rate 2020-09-30 14:00:00 79 /min [facility] [place] [facility] Oxygen saturation in 2020-09-30 14:00:00 98 /min University of Arterial blood by [place] [employer] nicky Pulse oximetry Branch Body temperature 2020-09-30 13:26:00 37.22 Ruthann [facility] Respiratory rate 2020-09-30 13:26:00 16 /min [facility] Body weight 2020-09-30 13:26:00 72.576 kg [facility] BMI 2020-09-30 13:26:00 28.80 kg/m2 [facility] Temperature Oral (F) 2019-01-28 01:16:00 98.6 F [facility] [place] Systolic (mm Hg) 2019-01-28 01:16:00 Estrada rial [place] Diastolic (mm Hg) 2019-01-28 01:16:00 Mem orial [place] Heart Rate 2019-01-28 01:16:00 Memorial Yon[place] Respitory Rate 2019-01-28 01:16:00 Memori al [place] Systolic (mm Hg) 2019-01-27 20:42:00 Estrada rial [place] Diastolic (mm Hg) 2019-01-27 20:42:00 Mem orial [place] Heart Rate 2019-01-27 20:42:00 Memorial Yonis Respitory Rate 2019-01-27 20:42:00 Memori al [place] Temperature Oral (F) 2019-01-27 20:42:00 98.5 F [facility] [place] Systolic (mm Hg) 2019-01-27 17:00:00 Estrada rial [place] Diastolic (mm Hg) 2019-01-27 17:00:00 Mem orial [place] Temperature Oral (F) 2019-01-27 17:00:00 98.5 F [facility] [place] Heart Rate 2019-01-27 17:00:00 [facility] Yon[place] Respitory Rate 2019-01-27 17:00:00 [facility] Height 2019-01-22 14:35:00 157.48 cm [facility] BMI Calculated 2019-01-22 14:35:00 Memori al [place] Weight 2019-01-22 14:35:00 [facility] 2019-01-22 04:34:00 [facility] Procedures Procedure Date / Time Performing Clinician Source Performed URINALYSIS 2021-09-10 06:03:00 Neena Bradford o f [facility] URINE DRUG (IMMUNOASSAY) 2021-09-10 06:03:00 Neena Bradford [facility] Medical [facility] nch SCREEN W/O REFLEX XR CHEST 1 VW 2021-09-10 04:57:30 Neena Bradford [facility] CREATINE KINASE 2021-09-10 04:39:00 Neena Bradford [facility] MAGNESIUM 2021-09-10 04:39:00 Sanchez Neena [facility] TROPONIN I 2021-09-10 04:39:00 Neena Bradford [facility] COMP. METABOLIC PANEL 2021-09-10 04:39:00 Neena Bradford [facility] ([id number]) [facility] Branch CBC WITH DIFF 2021-09-10 04:39:00 Sanchez [facility] PROTHROMBIN TIME / INR 2021-09-10 04:39:00 Neena [facility] ACTIVATED PARTIAL 2021-09-10 04:39:00 [facility] PRO-BNP 2021-09-10 04:39:00 Neena Bradford [facility] COVID-19 (ID NOW RAPID 2021-09-10 04:39:[address] [facility] TESTING) Medical Branch TROPONIN I 2021-09-09 21:49:00 Luanne Dumont [facility] COMP. METABOLIC PANEL 2021-09-09 21:49:00 Luanne Dumont [facility] ([id number]) Medical Branch LITHIUM 2021-09-09 21:49:00 Luanne Dumont [facility] CBC WITH DIFF 2021-09-09 21:49:00 DumontLuanne buenrostro [facility] CONSENT/REFUSAL FOR 2021-09-09 19:51:22 Doctor Unassigned, No Un [facility] DIAGNOSIS AND TREATMENT Name Medical Branch URINALYSIS 2020-09-30 13:27:00 Singer Chuy [facility] ADC,CLC OR LCC ONLY - 2020-09-30 13:27:00 Chuy Jackson [facility] INFLUENZA A & B DIRECT Medical B ranch ANTIGEN COVID-19 (ID NOW RAPID 2020-09-30 13:27:00 Chuy Jackson [facility] [place] TESTING) Medical Branch Encounters Start End Encounter Admission Attending Care Care Encounter Source Date/Time Date/Time Type Type Clinicians Facility Department ID 2019-01-22 Inpatient E [facility] [id number] [facility] 04:39:00 2021-10-25 2021-10-25 Emergency EM OLIVER Reynaga [id number] [facility] 01:01:00 01:57:00 Lulú [id number] [facility] 2021-09-09 2021-09-10 Emergency Sanchez NMANÍBAL [id number] Univers 22:20:00 03:02:00 Neena WALSH [id number] i ty of [place] [id number] [facility] [id number] [address] 2021-09-09 2021-09-10 Emergency Lise [facility] ERT [id number] Univers 22:20:00 03:02:00 NEENA tubbs [facility] 2021-09-09 2021-09-10 Emergency Lise [facility] ERT [id number] Univers 22:20:00 03:02:00 NEENA tubbs [facility] 2021-09-09 2021-09-09 Emergency Julia NMANÍBAL [id number] Univers 14:07:00 17:35:00 Luanne WALSH [id number] i ty of [place] [id number] [facility] [id number] [address] 2021-09-09 2021-09-09 Orders Doctor BELKYS [id number] Univers 00:00:00 00:00:00 Only Unassigned, LANA [id number] ity of [place] [facility] [id number] Joe [id number] [place] [address] Branch 2020-09-30 2020-09-30 DENIA Oneal [id number] 07:22:00 08:18:00 Chuy Walsh [id number] [place] [id number] [place] [id number] 2020-09-30 2020-09-30 [email or web address] [id number] Univers 07:22:00 08:18:00 Chuy Walsh [id number] i Alyssa [id number] [facility] [id number] [place] [address] Branch 2020-09-30 2020-09-30 Emergency X [facility] ERT [id number] Univers 07:22:00 07:22:00 CHUY tubbs [facility] 2020-04-05 2020-04-05 Outpatient Humaira-Mbayo VFP VFP [id number] [facility] 05:44:00 05:44:00 _A_AH [id number] Family Practic e 2020-04-05 2020-04-05 Outpatient Humaira-Mbayo VFP VFP [id number] [place] 05:44:00 05:44:00 _A_AH [id number] Family Practic e 2020-04-05 2020-04-05 Outpatient Humaira-Mbayo VFP VFP [id number] [place] 05:44:00 05:44:00 _A_AH [id number] Family Practic e 2020-04-05 2020-04-05 Outpatient Humaira-Mbayo VFP VFP [id number] [place] 05:44:00 05:44:00 _A_AH [id number] Family Practic e 2020-03-04 2020-03-14 Inpatient 3 Chente [facility] [id number] 15:38:00 15:25:00 [facility] 2019-12-13 2019-12-13 Outpatient Humaira-Mbayo VFP VFP [id number] [place] 07:22:00 07:22:00 _A_AH [id number] Family Practic e 2019-01-22 2019-01-28 Inpatient [facility] [id number] Memoria 04:33:00 04:40:00 martin Somers 00 l [facility] 2018-02-21 2018-02-20 Inpatient E [facility] [facility] [id number] 14:48:00 13:18:00 [facility] Results Test Description Test Time Test Comments Results Result Comments Source UA RFLX MICR CULT IF INDICATED 2021-10-25 03:42:00 Test Item Value Reference Range Interpretation Comme nts UA COLOR (test code = COLU) YELLOW YEL/STRAW UA APPEARANCE (test code = APPU) TURBID CLEAR A UA GLUCOSE DIPSTICK (test code = DGLUU) NEGATIVE NEGATIVE UA BILIRUBIN DIPSTICK (test code = BILU) NEGATIVE NEGATIVE UA KETONE DIPSTICK (test code = KETU) 1+ NEGATIVE A UA SPECIFIC GRAVITY (test code = SGU) 1.025 1.005-1.030 N UA BLOOD DIPSTICK (test code = KAMERON) NEGATIVE NEGATIVE UA PH DIPSTICK (test code = JOHN) 5.0 5.0-7.0 N UA PROTEIN DIPSTICK (test code = PROU) NEGATIVE NEGATIVE UA UROBILINIOGEN DIPSTICK (test code = URO) 0.2 mg/dL 0.2-1.0 UA NITRITE DIPSTICK (test code = LOLIS) NEGATIVE NEGATIVE UA LEUKOCYTE ESTERASE DIPSTICK (test code = LEUU) 2+ NEGA TIVE A UA WBC (test code = WBCU) >50 WBC/HPF 0-3 A UA RBC (test code = RBCU) 0-3 RBC/HPF 0-3 UA WBC NO REFLEX (test code = WBCUCL) >50 WBC/HPF 0-3 A UA BACTERIA (test code = BACU) NONE SEEN /HPF NONE SEEN UA SQUAMOUS CELLS (test code = SQU) NONE SEEN /HPF NONE SEEN UA AMORPHOUS SEDIMENT (test code = AMORU) 3+ /HPF NONE A TROPONIN-I [id number] 01:52:00 Test Item Value Reference Range Interpretation Comments TROPONIN-I RAPID 0.00 ng/mL 0.00-0.08 N Performed b y certified (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 Rather, the pat ient sclinical prese ntation (history, physi nicky exam) and ECGshould b e used in conjunction wit h troponin in thediagnosti c evaluation of s uspected myocardial infa rction. Aserial samplin g protocol is recommended to facilitate the identification of temporal changes in trop onin levels characteristic of [place]. BASIC METABOLIC [id number] 01:47:00 Test Item Value Reference Range Interpretation Comments SODIUM (test code = NA/ABG) 143 MEQ/L 134-147 N POTASSIUM (test code = K/ABG) 3.3 MEQ/L 3.4-5.0 L CHLORIDE (test code = CL/ABG) 108 MEQ/L 100-108 N CREATININE ABG (test code = 0.6 mg/dL 0.6-1.0 N CREAABG) POC IONIZED CALCIUM (test code = 1.20 MMOL/L 1.12-1.32 N POCCA) POC GLUCOSE (test code = POCGLU) 110 MG/DL UA DIPSTICK [id number] 01:32:00 Test Item Value Reference Range Interpretation Comments UA GLUCOSE DIPSTIC POC NEGATIVE NEGATIVE (test code = GLUUP) UA BILIRUBIN DIPSTICK NEGATIVE NEGATIVE (test code = BILU) UA KETONE DIPSTICK POC 1+ NEGATIVE A (test code = KETUP) UA SPECIFIC GRAVITY (test 1.030 1.005-1.030 N code = SGU) UA BLOOD DIPSTIC POC NEGATIVE NEGATIVE Perform ed by (test code = BLUP) certified transit coach operator at [facility] UA PH DIPSTIC POC (test 5 5.0-7.0 N code = PHUP) UA PROTEIN DIPSTICK POC NEGATIVE NEGATIVE (test code = DPROUP) UA UROBILINIOGEN QUAL NORMAL 0.2-1.0 (test code = UROQL) UA NITRITE DIPSTICK POC NEGATIVE Negative (test code = NITUP) UA LEUKOCYTE ESTERASE W 2+ NEGATIVE A REFLEX (test code = LEUUR) TROPONIN [id number] 05:26:53 Test Item Value Reference Interpretation Comments Range TROPONIN I (test 0.003 ng/mL See_Comment [Automated code = 0909852859) message] The system which generated this result [...] biotin. Lab Interpretation Normal (test code = 68975-9) [id number] 05:24:16 Test Item Value Reference Range Interpretation Comments NT-proBNP (test code 35 pg/mL See_Comment [Autom ated = 3513078881) message] The system which generated this result transmitted reference range : <=125. The reference range was not used to interpret this result as normal/abnormal . PERRY (test code = PERRY) Biotin has been reported to cause a negative bias, interpret results relative to patient's use of biotin. Lab Interpretation Normal (test code = 71893-1) [facility]2021-[facility]-17 05:16:51 Test Item Value Reference Range Interpretation Comments MAGNESIUM (test code = 5534363942) 1.8 mg/dL 1.7-2.4 Lab Interpretation (test code = Normal 89902-6) [facility] METABOLIC PANEL (77553)2021-09-10 05:16:31 Test Item Value Reference Range Interpretation Comments NA (test code = 139 mmol/L 135-145 9153494932) K (test code = 4.0 mmol/L 3.5-5.0 4696735931) CL (test code = 108 mmol/L 98-108 3048447415) CO2 TOTAL (test code 25 mmol/L 23-31 = 0176075874) AGAP (test code = 2-16 7642568771) BUN (test code = 14 mg/dL 7-23 2606587402) GLUCOSE (test code = 88 mg/dL 70-110 5846081204) CREATININE (test code 0.89 mg/dL 0.50-1.04 = 2167676262) TOTAL BILI (test code 0.5 mg/dL 0.1-1.1 = 9776580105) CALCIUM (test code = 10.3 mg/dL 8.6-10.6 7190880923) T PROTEIN (test code 6.9 g/dL 6.3-8.2 = 8528921222) ALBUMIN (test code = 4.3 g/dL 3.5-5.0 1127048355) ALK PHOS (test code = 72 U/L 34-122 3458219817) ALTv (test code = 17 U/L 5-35 2-6) AST(SGOT) (test code 29 U/L 13-40 = 0309077736) eGFR (test code = mL/min/1.73m2 6928377485) PERRY (test code = PERRY) Association of [...] or abnormalities in imaging tests). [facility] [id number] 05:16:16 Test Item Value Reference Range Interpretation Comments CK (test code = 5971288635) 267 U/L 33-194 H Lab Interpretation (test code = Abnormal 86740-7) [facility]iscoACTIVATED PARTIAL THRMPLAS [id number] 05:05:32 Test Item Value Reference Range Interpretation Comments APTT Patient (test See_Comment [Automat ed code = 3173-2) message] The system which generated this result transmitted reference range : 23 - 38 Seconds . The reference range was not used to interpr et this result as normal/abnormal . PERRY (test code = PERRY) The [facility] patient population mean normal value for aPTT is 30 seconds. Lab Interpretation Normal (test code = 38853-2) [facility]iscoPROTHROMBIN TIME / [id number] 05:03:30 Test Item Value Reference Range Interpretation [...] tions. Lab Interpretation (test Normal code = 66616-6) [facility] WITH [id number] 04:57:13 Test Item Value Reference Range Interpretation Comments WBC (test code = See_Comment [Automated 90-2) message] The sy stem which generated this result transmitted reference range : 4.30 - 11.10 10*3/?L. The reference range was not used to interpret this result as normal/abnormal . RBC (test code = See_Comment [Automated 159-8) message] The sy stem which generated this [...] RDW-SD (test code = 41.2 fL 39.0-49.9 46322-2) RDW-CV (test code = 13.0 % 12.0-15.5 788-0) PLT (test code = See_Comment H [Automated 777-3) message] The sy stem which generated this result transmitted reference range : 166 - 358 10*3/ ?L. The reference r katie was not used to interpret this result as normal/abnormal . MPV (test code = 9.6 fL 9.5-12.9 58922-6) NRBC/100 WBC (test See_Comment [Automat ed code = 0914649819) message] The system which generated this result transmitted reference range : 0.0 - 10.0 /100 WBCs. The refer ence range was not u sed to interpret th is result as normal/abnormal . NRBC x10^3 (test code <0.01 See_Comment [Auto mated = 6601371807) message] The s ystem which generated this result transmitted reference range : 10*3/?L. The reference range was not used to interpret this result as normal/abnormal . GRAN MAT (NEUT) % 61.9 % (test code = 770-8) IMM GRAN % (test code 0.30 % = 5584230446) LYMPH % (test code = 26.0 % 736-9) MONO % (test code = 9.5 % 5905-5) EOS % (test code = 1.6 % 713-8) BASO % (test code = 0.7 % 706-2) GRAN MAT x10^3(ANC) 5.91 10*3/uL 1.88-7.09 (test code = 5090054236) IMM GRAN x10^3 (test 0.03 10*3/uL 0.00-0.06 code = 3561728707) LYMPH x10^3 (test code 2.48 10*3/uL 1.32-3.29 = 731-0) MONO x10^3 (test code 0.91 10*3/uL 0.33-0.92 = 742-7) EOS x10^3 (test code = 0.15 10*3/uL 0.03-0.39 711-2) BASO x10^3 (test code 0.07 10*3/uL 0.01-0.07 = 704-7) Lab Interpretation Abnormal (test code = 49676-1) [facility]iscoTR[facility] [id number] 22:24:55 Test Item Value Reference Interpretation Comments Range TROPONIN I (test 0.002 ng/mL See_Comment [Automated code = 6018072668) message] The system which generated this result [...] biotin. Lab Interpretation Normal (test code = 33556-6) [facility]isco[facility]ITHIUM2021-[facility]-16 22:24:34 Test Item Value Reference Range Interpretation Comments [place] (test code = <0.2 0.6-1.2 L 1776085035) PERRY (test code = PERRY) Toxic Range: ? Greater than 1.2 mmol/L Lab Interpretation (test Abnormal code = 93211-1) [facility]iscoCOMP. METABOLIC PANEL (39053)2021-09-09 22:13:54 Test Item Value Reference Range Interpretation Comments NA (test code = 139 mmol/L 135-145 4976066278) K (test code = 4.0 mmol/L 3.5-5.0 1327853718) CL (test code = 105 mmol/L 98-108 7219545902) CO2 TOTAL (test code 26 mmol/L 23-31 = 1614856194) AGAP (test code = 2-16 7839036578) BUN (test code = 11 mg/dL 7-23 8236128627) GLUCOSE (test code = 109 mg/dL 70-110 8704892500) CREATININE (test code 0.71 mg/dL 0.50-1.04 = 2983550404) TOTAL BILI (test code 0.6 mg/dL 0.1-1.1 = 9206194920) CALCIUM (test code = 10.4 mg/dL 8.6-10.6 1995126222) T PROTEIN (test code 7.6 g/dL 6.3-8.2 = 1255020428) ALBUMIN (test code = 4.7 g/dL 3.5-5.0 1333214105) ALK PHOS (test code = 78 U/L 34-122 0429047991) ALTv (test code = 19 U/L 5-35 2-6) AST(SGOT) (test code 28 U/L 13-40 = 4838682442) eGFR (test code = mL/min/1.73m2 0478010261) PERRY (test code = PERRY) Association of [...] or urine or abnormalities in imaging tests). [facility] WITH [id number] 22:03:32 Test Item Value Reference Range Interpretation [...] RDW-SD (test code = 40.2 fL 39.0-49.9 49702-5) RDW-CV (test code = 12.9 % 12.0-15.5 788-0) PLT (test code = See_Comment H [Automated 777-3) message] The sy stem which generated this result transmitted reference range : 166 - 358 10*3/ ?L. The reference r katie was not used to interpret this result as normal/abnormal . MPV (test code = 9.4 fL 9.5-12.9 L 07022-0) NRBC/100 WBC (test See_Comment [Automat ed code = 0034006487) message] The system which generated this result transmitted reference range : 0.0 - 10.0 /100 WBCs. The refer ence range was not u sed to interpret th is result as normal/abnormal . NRBC x10^3 (test code <0.01 See_Comment [Auto mated = 0760183360) message] The s ystem which generated this result transmitted reference range : 10*3/?L. The reference range was not used to interpret this result as normal/abnormal . GRAN MAT (NEUT) % 67.1 % (test code = 770-8) IMM GRAN % (test code 1.00 % = 2149710147) LYMPH % (test code = 21.4 % 736-9) MONO % (test code = 7.9 % 5905-5) EOS % (test code = 1.8 % 713-8) BASO % (test code = 0.8 % 706-2) GRAN MAT x10^3(ANC) 7.35 10*3/uL 1.88-7.09 H (test code = 4752937439) IMM GRAN x10^3 (test 0.11 10*3/uL 0.00-0.06 H code = 0917897971) LYMPH x10^3 (test code 2.34 10*3/uL 1.32-3.29 = 731-0) MONO x10^3 (test code 0.86 10*3/uL 0.33-0.92 = 742-7) EOS x10^3 (test code = 0.20 10*3/uL 0.03-0.39 711-2) BASO x10^3 (test code 0.09 10*3/uL 0.01-0.07 H = 704-7) Lab Interpretation Abnormal (test code = 54309-5) [facility],CLC OR L[facility] ONLY - INFLUENZA A & B DIRECT [id number] 14:04:00 Test Item Value Reference Range Interpretation Comments Influenza A (test code = 93290-5) Negative Negative Influenza B (test code = 11590-0) Negative Negative Lab Interpretation (test code = Normal 31172-6) [facility]iscoCOVID-[facility] (ID NOW RAPID TESTING)2020-09-30 14:03:00 Test Item Value Reference Range Interpretation Comments SARS-CoV-2 Rapid ID NOW Not Detected Not Detected (test code = 40747-9) PERRY (test code = PERRY) ID NOW COVID-19 Assay is an isothermal nucleic acid amplification test intended for the qualitative detection of nucleic acid from SARS-CoV-2 viral RNA in nasopharyngeal (ETCHER PHOTOENGRAVING) specimens. It is used under Emergency Use [...] indicated. Lab Interpretation Normal (test code = 19732-4) [facility]iscoURINALYSIS2020-12-07 13:55:00 Test Item Value Reference Range Interpretation Comments APPEARANCE (test code = Hazy Clear A 1558180029) COLOR (test code = Yellow Yellow 8405981213) PH (test code = 4.8-8.0 9878390904) SP GRAVITY (test code = 1.003-1.030 9070347527) GLU U QUAL (test code = Normal Normal 5382448650) BLOOD (test code = Negative Negative 3086164337) KETONES (test code = 5 mg/dL Negative A 5545961397) PROTEIN (test code = Negative Negative 2887-8) UROBILIN (test code = 2.0 mg/dL Normal A 9633260990) BILIRUBIN (test code = Negative Negative 8206454349) NITRITE (test code = Negative Negative 5858354906) LEUK ROZINA (test code = 25/uL Negative A 9751498310) RBC/HPF (test code = See_Comment [Autom ated message] 8325424380) The system [employer] generated this result transmit ngozi reference range : 0 - 3 HPF. The refe rence range was not u sed to interpret th is result as normal/abnormal . WBC/HPF (test code = See_Comment [Autom ated message] 2332630447) The system [employer] generated this result transmit ngozi reference range : 0 - 5 HPF. The refe rence range was not u sed to interpret th is result as normal/abnormal . BACTERIA (test code = Few Negative A 0614746840) MUCOUS (test code = Slight Negative LPF A 4354946526) SQ EPITH (test code = HPF 3881569035) Lab Interpretation (test Abnormal code = 15178-5) [facility]iscoRPR Kwtrkmhmdyl0379-88-99 16:42:24 Test Item Value Reference Range Interpretation [...] = 10-24-2020 N Expiration Dt) Thyroid Stimulating Yrssoag7579-53-14 08:35:16 Test Item Value Reference Range Interpretation Comments TSH (test code = TSH) 1.170 mIU/mL 0.270-4.200 Lipid Rqkwx8914-78-54 08:21:19 Test Item Value Reference Range Interpretation [...] calculation is LDL/HDL Ratio=L DL Calc/HDL Chol ODDKKCCQPVOY2095-31-71 08:24:008.6[facility] PfjgskxEXDENLOIOKCX6344-54-66 08:24:66508Nepqaesr VwvbcnwNLLFUQLYYGRB7486-17-73 08:24:0027[facility] TGIXETFMGZEW2104-83-50 08:24:88799Sotzaqjf DjnxuxuEKYYDCZBBBFG8375-99-66 08:24:003.6[facility] GvqiccrZPFZLRHLFWQO4329-41-20 08:24:000.70[facility] TBROWIRQRJHB8668-39-90 08:24:008.4[facility] TlgscpuNZCMZRRELQIY1460-70-14 08:24:91879Ximvwoux YytnalbJXQCUVOGKSWM0359-90-09 08:24:0086[facility] CAERTFJACPKO2165-91-67 08:24:006[facility] GjvmhthXRUVJGWGGO1383-36-40 08:24:00 11.6[facility] EoczramAQORCTVEKQ4122-39-61 08:24:003.78[facility]annHEMATOLOGY 2019-01-26 08:24:0013.3[facility] ZzfvwupTVGWXITCFH6989-22-57 08:24:0034.0[facility] WmwikmiROQUFGCORP5639-56-46 08:24:006.3[facility] IxjkmouBFVUGXDQZA6094-85-14 08:24:00 Test Item Value Reference Range Interpretation Comments MCH (test code = MCH) 30.7 pg 27.0-31.0 [facility] YywiakcOXWJOCCHLD3306-47-75 08:24:0090.3[facility]annHEMATOLOGY 2019-01-26 08:24:0034.2[facility] TbxfdpfHPRZHXJAEX8547-42-09 08:24:94989Skeimlim WnthsegPRLMFJYFKS6931-72-73 08:24:007.5[facility] CwupoxkYYMSOXJNJMQX2159-80-80 08:24:008.6[facility] HttjlepJQJYOJDJXEYG0214-47-03 08:24:70829Cemxvixk [facility] IMJAJYXLRRQL7405-29-63 08:24:0027[facility] UmxovevECPFQIYJUOLH3633-54-04 08:24:00 139[facility] YrxhlazKFQYCDBWPIVX0917-24-29 08:24:003.6[facility] VODHICFTYPJK9792-06-22 08:24:000.70[facility] BhcbylzSYECJTAIDJQW7514-97-43 08:24:008.4[facility] FuwehxnMTNXOMLVIJJV3087-79-81 08:24:42225Yctilakv [facility] PDAOBKLCFJBK6482-21-90 08:24:0086[facility] BzxzspbZJZLTCEPJGFM7164-39-47 08:24:00 6[facility] JcuqlhoDCBBCIQUEZ6744-79-99 08:24:0011.6[facility]annHEMATOLOGY 2019-01-26 08:24:003.78[facility] PedosjaAOQRROWMZT0990-94-59 08:24:0013.3[facility] RbfbvqyLOJEBZQIGT0276-19-75 08:24:0034.0[facility] TnmvdmyMSQATJMKPL4165-71-55 08:24:006.3[facility] GckfeupBGVTGWCYEW5488-03-70 08:24:00 Test Item Value Reference Range Interpretation Comments MCH (test code = MCH) 30.7 pg 27.0-31.0 [facility] YbhuwliVMOSEPFBRL4696-55-07 08:24:0090.3[facility]annHEMATOLOGY 2019-01-26 08:24:0034.2[facility] UwaeuweSFYXPMHGBC5813-95-78 08:24:88697Zgjgrtxk OwdfoljYFSPQZNTXH7040-94-71 08:24:007.5[facility] HermannCHEM DIZUV5172-73-35 09:14:47279Korlpqmd HermannCHEM ADPYL2714-33-80 09:14:008.5[facility]annCHEM ZNADN0314-01-56 09:14:0013.3[facility]annCHEM HCMZJ1399-29-56 09:14:0024 [facility]annCHEM BFPZB3105-19-58 09:14:68307Zacqavsc HermannCHEM PANEL 2019-01-25 09:14:0081[facility]annCHEM KXKYC4419-20-73 09:14:002[facility]annCHEM ZGGZP2038-95-55 09:14:003.3[facility]annCHEM UNYLB5129-26-00 09:14:000.60[facility]annCHE[facility] LTQZI8794-00-49 09:14:59670Sggjkokr HermannCHEM TYDAX3266-62-50 09:14:84794Vvrkoqqa HermannCHEM BOXKB0487-53-28 09:14:008.5 [facility]annCHE[facility] NRAVW3327-84-67 09:14:0013.3[facility]annCHEM PANEL 2019-01-25 09:14:0024[facility]annCHEM XQROA9989-99-63 09:14:67460Ekqxhodn [facility]CHEM JGPNQ8534-16-36 09:14:0081[facility]annCHEM SMYAB3442-52-28 09:14:002[facility]annCHEM ROTLT4662-06-76 09:14:003.3[facility]annCHEM EUCCJ2784-21-67 09:14:000.60[facility]annCHEM TKAVB0465-29-42 09:14:92669 [facility]annMOLECULAR DGZTBELSQY5370-05-33 16:22:00Negative (01/23/19 11:22 AM)[facility]annMOLECULAR MJSEAMCKWW1917-67-87 16:22:00Negative (01/23/19 11:22 AM)[facility]annCHEM YFVEK0059-90-99 15:42:002.76[facility]annCHEM PANEL 2019-01-23 15:42:002.76[facility]annCHEM DKBAG4520-00-85 12:32:000.9[facility]annCHE[facility] LYPDC5867-79-93 12:32:000.9[facility]annCHEM GICJE3344-98-98 10:50:002.0[facility]annCHEM HOCBH1033-10-92 10:50:09643Dezgnbmx [facility]annCHEM KXVER6637-99-04 10:50:0023[facility]annCHEM EMDQA7779-17-06 10:50:81791 [facility]annCHE[facility] KPOHE4419-11-60 10:50:003.1[facility]annCHEM PANEL 2019-01-23 10:50:50719Bhshniwz HermannCHEM MSMDM7249-49-08 10:50:005[facility]annCHEM YDWOR8349-67-52 10:50:000.50[facility]annCHEM PCWGR9381-64-74 10:50:007.8[facility]annCHEM NGUDJ1752-73-62 10:50:0083[facility]annCHEM LGSVG5952-66-29 10:50:0010.1[facility] UlgovgvVZJUUIOJQA4090-05-88 10:50:000.2 [facility] XmydtqzYAUOQTOLXA3341-64-34 10:50:000.8[facility]annHEMATOLOGY 2019-01-23 10:50:005.5[facility] FoymxziAXWCHLWGKY9277-54-70 10:50:002.2[facility] GtukcwdDBJREMCCFL6411-34-26 10:50:000.1[facility] GohtoriGCUIIDLKIO2717-20-12 10:50:0063.6[facility] KdxenzpNTPSOJXMCJ6019-29-32 10:50:008.9[facility] FRXHYMINGG8480-40-30 10:50:002.3[facility] GsbkxjuMEITAARESC9111-89-53 10:50:00 Normal (01/23/19 5:50 AM)[facility] ZyrkdfvRZDMWDDHOF2130-14-52 10:50:00Normal (01/23/19 5:50 AM)[facility] XandcodWZIMMJIEUS4295-50-08 10:50:0025.1[facility] FcvtiqoVUAJWZGZSV2716-54-59 10:50:0013.1[facility] KfsinmcFSBSOWERGT1469-69-63 10:50:85762Ulvagzlk XwrsrliAVIERDCPFW8761-78-94 10:50:007.7[facility] OWASCFVSSF2547-58-71 10:50:008.6[facility] YktynmhEMBJJHLLPQ2155-93-70 10:50:00 10.0[facility] UggunjtFIUMYGQDKR1346-33-59 10:50:0034.6[facility]annHEMATOLOGY 2019-01-23 10:50:0028.7[facility] GgpiybgGROIJRDFTJ2774-44-16 10:50:0087.8[facility] HtgxwuyCCBRPLCTCX0492-13-00 10:50:00 Test Item Value Reference Range Interpretation Comments MCH (test code = MCH) 30.4 pg 27.0-31.0 [facility] HfirahgRDDHHGRFPP6189-96-90 10:50:003.27[facility]annHEMATOLOGY 2019-01-23 10:50:61055Pvgbqohn UdnckpjEERLNYQKJH4091-91-20 10:50:007.7[facility] MevoryqVQWDMSHOVB3082-07-58 10:50:008.6[facility]annCHEM KPXKZ5449-35-58 10:50:002.0[facility]annCHEM NUMKM0082-26-49 10:50:22549Jfosnjja [facility] GGIMOQZVTA4177-60-18 10:50:0010.0[facility]annCHEM LFJPO9471-16-58 10:50:0023 [facility]annCHEM TJXXO4767-63-52 10:50:55617E[address]xweg HermannCHEM PANEL 2019-01-23 10:50:003.1[facility]annCHEM WPIPH7305-03-73 10:50:26302Tfcnwccl HermannCHEM DWNJW2245-71-07 10:50:005[facility] EhvctmqIXODOKHFWL1467-58-58 10:50:0034.6[facility]annCHEM LLWRJ8128-70-54 10:50:000.50[facility] CHEM GKMRL4067-61-98 10:50:007.8[facility]annCHEM QQIFZ7119-90-11 10:50:0083 [facility]annCHE[facility] QPLLC5490-81-24 10:50:0010.1[facility]annHEMATOLOGY 2019-01-23 10:50:000.2[facility] UtyipozEOFDXMGIKP9727-39-55 10:50:0028.7[facility] OgtkhiuLWRXABRNHV5718-38-60 10:50:000.8[facility] KtblhpnADGSCIZKAU3335-63-99 10:50:005.5[facility] QytwwpwHWQWSJTLPW7175-85-97 10:50:002.2[facility] VTEXXMRYHQ6092-84-69 10:50:000.1[facility] CfemmvzEWVUFZLWQT6062-77-28 10:50:00 87.8[facility] FnjbwodACLLABJFQM0624-02-01 10:50:0063.6[facility]annHEMATOLOGY 2019-01-23 10:50:008.9[facility] JehhfajHVQEYTQTWD4823-18-94 10:50:002.3[facility] IehjwtgIPHWAVYJXM9200-99-45 10:50:00Normal (01/23/19 5:50 AM)[facility] FJJDMJSINF8386-39-44 10:50:00Normal (01/23/19 5:50 AM)[facility]annHEMATOLOGY 2019-01-23 10:50:0025.1[facility] XkzwvplJHNCHWGGIO6878-52-23 10:50:0013.1[facility] RqjgxszDNQUUQIONF2382-35-91 10:50:00 Test Item Value Reference Range Interpretation Comments MCH (test code = MCH) 30.4 pg 27.0-31.0 [facility] ZhvydkaLHJZVWXVSY9531-88-87 10:50:003.27[facility]annCHEM PANEL 2019-01-22 11:32:002.4[facility]annCHEM XHVMN4147-74-09 11:32:002.4[facility]annCHEM SQJYI3488-06-90 09:04:003.0[facility]CHE[facility] GIVRO4667-56-32 09:04:003.0[facility] GUJJJ7923-22-17 07:14:00 Test Item Value Reference Range Interpretation Comments UA Spec Grav (test code = UA Spec 1.014 1 Grav) [facility] [id number] 07:14:00 Test Item Value Reference Range Interpretation Comments UA pH (test code = UA pH) 6.0 1 5.0-8.0 [facility] [id number] 07:14:00Negative (01/22/19 2:14 AM) [facility] [id number] 07:14:00Negative *NA*(01/22/19 2:14 AM) [facility] [id number] 07:14:00Negative *NA*(01/22/19 2:14 AM) [facility] WAGXE0519-79-28 07:14:00Negative *NA*(01/22/19 2:14 AM) [facility] [id number] 07:14:00Negative (01/22/19 2:14 AM) [facility] ZLNAB7002-14-63 07:14:00Negative (01/22/19 2:14 AM) [facility] KVSGW6736-85-09 07:14:00Negative (01/22/19 2:14 AM) [facility] DJTOD7557-76-21 07:14:00<1[facility] PAUTR2796-44-03 07:14:0025[facility] KSUJR6624-56-99 07:14:002 [facility] JOWYM9724-13-57 07:14:00Light Yellow *NA*(01/22/19 2:14 AM)[facility] ORCZR0922-02-63 07:14:00Clear (01/22/19 2:14 AM) [facility] [id number] 07:14:00 Test Item Value Reference Range Interpretation Comments UA Spec Grav (test code = UA Spec 1.014 1 Grav) [facility] [id number] 07:14:00 Test Item Value Reference Range Interpretation Comments UA pH (test code = UA pH) 6.0 1 5.0-8.0 [facility] [id number] 07:14:00Negative (01/22/19 2:14 AM) [facility] [id number] 07:14:00Negative *NA*(01/22/19 2:14 AM) [facility] [id number] 07:14:00Negative *NA*(01/22/19 2:14 AM) [facility] [id number] 07:14:00Negative *NA*(01/22/19 2:14 AM) [facility] [id number] 07:14:00Negative (01/22/19 2:14 AM) [facility] [id number] 07:14:00Negative (01/22/19 2:14 AM) [facility] [id number] 07:14:00Negative (01/22/19 2:14 AM) [facility] [id number] 07:14:00<1[facility] AXAUY7803-96-08 07:14:0025[facility] [id number] 07:14:002 [facility] NUHWW5871-38-28 07:14:00Light Yellow *NA*(01/22/19 2:14 AM)[facility] [id number] 07:14:00Clear (01/22/19 2:14 AM) [facility] JqnacgdFYDJW2921-65-90 05:16:000.90[facility] YlgzbyvJNHVT7532-27-94 05:16:000.90[facility] TwifgfyMHNUZIDXFW5943-15-63 05:01:000.1[facility] OKZHBWJMPK0834-19-47 05:01:000.7[facility] TvkztpiSKQQZJJOFN1670-48-19 05:01:000.0 [facility] BpgtednFSBJNVRXGE2912-48-64 05:01:000.0[facility]annHEMATOLOGY 2019-01-22 05:01:000.9[facility] DlkihdcYNQUDMOVBI2181-86-14 05:01:008.6[facility] QxyahluQAHFRBDQLP3786-97-62 05:01:000.6[facility] IephsevZEEJKJFKYU5286-15-46 05:01:0086.5[facility] WgiwxepRCQKINPTMK9249-69-42 05:01:005.7[facility] EERVDAXLXI9826-00-69 05:01:006.9[facility] LdkffbfEESUGQIFFW0786-36-53 05:01:009.9 [facility] YsvbsjeIFHUJLSSVB3473-48-49 05:01:0032.8[facility]annHEMATOLOGY 2019-01-22 05:01:0013.6[facility] UwovgiqXKODTUMBQR2792-28-58 05:01:18280Wzidwtuf NvfqwenXWEXJUJGSH4279-67-06 05:01:007.3[facility] HjnfgbjMRFWAZWKHE6903-39-41 05:01:0014.0[facility] XswudoaBFRGWPAWNL2864-56-43 05:01:004.85[facility] OLJKLCRIOI1296-96-05 05:01:0042.7[facility] RtzbsftUXKNNZCBYO8543-36-20 05:01:00 Test Item Value Reference Range Interpretation Comments MCH (test code = MCH) 29.0 pg 27.0-31.0 [facility] JgvirmcIOETZYRKIQ6660-38-36 05:01:0088.2[facility] 2019-01-22 05:01:00 Test Item Value Reference Range Interpretation Comments INR (test code = INR) 0.96 1 0.85-1.17 [facility] IrlkjjzWEMZAIZTUH7676-34-17 05:01:00 Test Item Value Reference Range Interpretation Comments PT (test code = PT) 12.6 s 12.0-14.7 [facility] AlmvetjTOOUIDJCUG5087-07-05 05:01:00 Test Item Value Reference Range Interpretation Comments PTT (test code = PTT) 25.9 s 22.9-35.8 [facility] NKBFQLA8174-97-73 05:01:00Negative (01/22/19 12:01 AM) [facility]ann[facility]ARDIAC KRJPISS2864-98-28 05:01:00<0.02[facility] CARDIAC NJCPRQZ4517-29-51 05:01:0049[facility]annCHEM XDLZR8523-33-03 05:01:000.6[facility] HermannCHEM DUOOD4445-25-50 05:01:43697Bokdktrb HermannCHEM HRJDL5057-81-82 05:01:004.0[facility]annCHEM LEUCG1182-26-89 05:01:0017 [facility]annCHE[facility] LFELR6598-88-00 05:01:0025[facility]annCHEM PANEL 2019-01-22 05:01:008.1[facility]annCHEM [id number] 05:01:00 Test Item Value Reference Range Interpretation Comments B/C Ratio (test code = B/C Ratio) 20 1 6-25 [facility]annCHE[facility] [id number] 05:01:00 Test Item Value Reference Range Interpretation Comments A/G Ratio (test code = A/G Ratio) 1.0 1 0.7-1.6 [facility]annCHE[facility] [id number] 05:01:004.1[facility]annCHEM PANEL 2019-01-22 05:01:006.90[facility] WhfvpcxGHYDLZXJOOHVA2406-39-95 05:01:00Negative *NA*(01/22/19 12:01 AM)[facility] GvwcthkXXTXVUORPI4180-27-05 05:01:000.1[facility] KahgbueXGBEORWDET6907-20-75 05:01:000.7[facility] XurvwotMHWTSKZSZE2822-01-25 05:01:000.0[facility] IkzacilXJSULWPGCT7690-15-61 05:01:000.0[facility] LZZKQCACVW0651-18-09 05:01:000.9[facility] WnycvucVSYISDOPLS7533-49-34 05:01:008.6 [facility] MuizshnTZEQLYZHJJ2378-63-61 05:01:000.6[facility]annHEMATOLOGY 2019-01-22 05:01:0086.5[facility] NemnkkeXDPCSTRMSZ3184-57-93 05:01:005.7[facility] PgjwczcTMIBMPRCXP2111-03-55 05:01:006.9[facility] FtcsmjlODILRSTTAC6233-85-89 05:01:009.9[facility] AqtlpltNOEQPSSQFK4549-88-38 05:01:0032.8[facility] Yonis PMKQURRDBJ9133-98-08 05:01:0013.6[facility] QssmnioQMXGZVFCVV0009-50-48 05:01:00 443[facility] EqonygbCXBFHJSKIG9434-79-43 05:01:007.3[facility]annHEMATOLOGY 2019-01-22 05:01:0014.0[facility] LhkqvzzDQWKNQLHTW0418-44-73 05:01:004.85[facility] AnxqywqOFKODMMFJL2684-29-62 05:01:0042.7[facility] PwnffvqATMNWLXPLZ2138-65-37 05:01:00 Test Item Value Reference Range Interpretation Comments MCH (test code = MCH) 29.0 pg 27.0-31.0 [facility] HjjhycoWBTHBFUTBP7623-08-91 05:01:0088.2[facility]annHEMATOLOGY 2019-01-22 05:01:00 Test Item Value Reference Range Interpretation Comments INR (test code = INR) 0.96 1 0.85-1.17 [facility] MmdrwcqILXLDNPWLR3755-34-60 05:01:00 Test Item Value Reference Range Interpretation Comments PT (test code = PT) 12.6 s 12.0-14.7 [facility] RockTiuwmzsDEHXQKGBYW6092-88-79 05:01:00 Test Item Value Reference Range Interpretation Comments PTT (test code = PTT) 25.9 s 22.9-35.8 [facility] ZTGOIPK9304-20-15 05:01:00Negative (01/22/19 12:01 AM) [facility] PSLDZRB4688-22-94 05:01:00<0.02[facility] CARDIAC HKCSMPV9324-81-00 05:01:0049[facility]annCHEM RDDCA9837-65-99 05:01:000.6[facility] HermannCHEM ZNIAY8348-59-83 05:01:19774Aczmzgdf HermannCHEM JYQSD4407-29-06 05:01:004.0[facility] HermannCHEM OKUCB2228-01-26 05:01:0017 [facility]annCHEM MKLPH6146-19-18 05:01:0025[facility]annCHEM PANEL 2019-01-22 05:01:008.1[facility]annCHEM JBWQQ7575-54-64 05:01:00 Test Item Value Reference Range Interpretation Comments B/C Ratio (test code = B/C Ratio) 20 1 6-25 [facility] HermannCHEM [id number] 05:01:00 Test Item Value Reference Range Interpretation Comments A/G Ratio (test code = A/G Ratio) 1.0 1 0.7-1.6 [facility]CHE[facility] [id number] 05:01:004.1[facility] HermannCHEM PANEL 2019-01-22 05:01:006.90[facility] CenterFfloztrQSLNMTKRKAPEY2783-85-50 05:01:00Negative *NA*(01/22/19 12:01 AM)[facility]neyPyttolrNRM9B1997-95-00 14:36:00 Test Item Value Reference Range Interpretation [...] 0.00-0.01 N code = ETOHU) Comprehensive Metabolic Jplda1635-84-11 14:36:00 Test Item Value Reference Range Interpretation [...] the National [employer],http ://nkd ep.nih.gov Urinalysis Giabyehj5044-34-60 14:32:00 Test Item Value Reference Range Interpretation Comments Color (test code = COLOR) Yellow Yellow,Straw,Pl N yellow Clarity (test code = Clear Clear N CLAR) Specific [place] (test 1.024 1.001-1.035 N code = SPGR) [...] code = Few /HPF BACT) CBC with Hphificrykhw5660-03-14 14:21:00 Test Item Value Reference Range Interpretation [...] code = ALYMPH) 3.0 K/cumm 0.5-4.6 N [place] Abs (test code = AMONO) 0.5 K/cumm 0.0-1.2 N Eos Abs (test code = AEOS) 0.19 K/cumm 0.00-0.74 N Baso Abs (test code = ABASO) 0.1 K/cumm 0.00-0.21 N
--- NOTE | 2021-10-26 01:55 | ER ---
Nurse's Notes [facility] Name: Tiffany Quinn Age: 51 yrs Sex: Female : 1970 Arrival Date: 10/25/2021 Time: 19:30 Bed Treatment Private MD: Diagnosis: Drug abuse counseling and surveillance of drug abuser Presentation: 10/25 19:30 Chief complaint: Patient states: took $5 worth of meth and it made her feel funny and iw she wanted to get checked out. 19:31 Coronavirus screen: At this time, the client does not indicate any symptoms associated iw with coronavirus-19. Ebola Screen: Patient negative for fever greater than or equal to 101.5 degrees Fahrenheit, and additional compatible Ebola Virus Disease symptoms Patient denies exposure to infectious person. Patient denies travel to an Ebola-affected area in the 21 days before illness onset. No symptoms or risks identified at this time. Onset of symptoms was October 25, 2021. 19:31 Method Of Arrival: EMS: [facility] iw 19:31 Acuity: MANUEL 4 iw Historical: - Allergies: 19:31 Pepcid; iw 19:31 Toradol; iw - PMHx: 19:31 ADD; Anxiety; Bipolar disorder; iw - PSHx: 19:31 Cholecystectomy; hernia repair; iw - Immunization history:: Client reports receiving the 2nd dose of the Covid vaccine, Moderna. - Social history:: Smoking status: Patient denies any tobacco usage or history of. Patient uses street drugs, Methamphetamine (Meth). Screenin:38 Abuse screen: Denies threats or abuse. Nutritional screening: No deficits noted. bb Tuberculosis screening: No symptoms or risk factors identified. Fall Risk None identified. Assessment: 23:37 General: Reports she is here for a blood pressure check because she took meth last bb night she was seen at ED last night. 23:38 General: Appears unkempt, Behavior is agitated, anxious. Neuro: Level of Consciousness bb is awake, alert, obeys commands, Oriented to person, place. Cardiovascular: Capillary refill < 3 seconds Patient's skin is warm and dry. Respiratory: Respiratory effort is even, unlabored. GI: No signs and/or symptoms were reported involving the gastrointestinal system. Derm: Skin is dry, Skin is pale, Skin temperature is warm. Musculoskeletal: Circulation, motion, and sensation intact. 10/26 02:16 Reassessment: Patient is alert, oriented x 3, equal unlabored respirations, skin bb warm/dry/pink. pt verbalized understanding of and agrees to plan of care discharge instructions given pt ambulated with steady gait to exit. Vital Signs: 10/25 23:35 BP 132 / 96; Pulse 119; Resp 18 S; Temp 98.6; Pulse Ox 95% on R/A; bb ED Course: 19:30 Patient arrived in ED. iw 19:31 Triage completed. iw 19:31 Arm band placed on. iw 23:38 Patient has correct armband on for positive identification. bb 10/26 01:18 Guanako Palomino PA is PHCP. jr8 01:18 David Brown MD is Attending Physician. jr8 02:17 No provider procedures requiring assistance completed. Patient did not have IV access bb during this emergency room visit. Administered Medications: 02:10 Drug: Ondansetron 4 mg Route: PO; bb 02:10 Drug: Tylenol 1000 mg Route: PO; bb Outcome: 01:55 Discharge ordered by . jr8 02:17 Discharged to home ambulatory. bb 02:17 Condition: stable 02:17 Discharge instructions given to patient, Instructed on discharge instructions, follow up and referral plans. Demonstrated understanding of instructions, follow-up care. 02:18 Patient left the ED. bb Signatures: Keena Lazaro RN RN bb Chante Warner RN RN iw Guanako Palomino PA PA jr8
--- NOTE | 2021-10-26 01:55 | EDPHYS ---
Physician Documentation [facility] Name: Tiffany Quinn Age: 51 yrs Sex: Female : 1970 Arrival Date: 10/25/2021 Time: 19:30 Bed Treatment Private MD: ED Physician David Brown HPI: 10/26 01:56 This 51 yrs old Female presents to ER via EMS with complaints of Drug Abuse. jr8 01:56 This is a 51-year-old female that presented to the emergency room via EMS after taking jr8 methamphetamines tonight. Patient has a known history of drug abuse in the past. Patient currently complains of nausea. Denies any other symptoms at this time.. Historical: - Allergies: 10/25 19:31 Pepcid; iw 19:31 Toradol; iw - PMHx: 19:31 ADD; Anxiety; Bipolar disorder; iw - PSHx: 19:31 Cholecystectomy; hernia repair; iw - Immunization history:: Client reports receiving the 2nd dose of the Covid vaccine, Moderna. - Social history:: Smoking status: Patient denies any tobacco usage or history of. Patient uses street drugs, Methamphetamine (Meth). ROS: 10/26 01:56 Eyes: Negative for injury, pain, redness, and discharge, ENT: Negative for injury, jr8 pain, and discharge, Neck: Negative for injury, pain, and swelling, Cardiovascular: Negative for chest pain, palpitations, and edema, Respiratory: Negative for shortness of breath, cough, wheezing, and pleuritic chest pain, Back: Negative for injury and pain, MS/Extremity: Negative for injury and deformity, Skin: Negative for injury, rash, and discoloration, Neuro: Negative for headache, weakness, numbness, tingling, and seizure. Abdomen/GI: Positive for nausea. Exam: 01:56 Constitutional: This is a well developed, well nourished patient who is awake, alert, jr8 and in no acute distress. Cardiovascular: Regular rate and rhythm with a normal S1 and S2. No gallops, murmurs, or rubs. Normal PMI, no JVD. No pulse deficits. Respiratory: Lungs have equal breath sounds bilaterally, clear to auscultation and percussion. No rales, rhonchi or wheezes noted. No increased work of breathing, no retractions or nasal flaring. Abdomen/GI: Soft, non-tender, with normal bowel sounds. No distension or tympany. No guarding or rebound. No evidence of tenderness throughout. Skin: Warm, dry with normal turgor. Normal color with no rashes, no lesions, and no evidence of cellulitis. MS/ Extremity: Pulses equal, no cyanosis. Neurovascular intact. Full, normal range of motion. Neuro: Awake and alert, GCS 15, oriented to person, place, time, and situation. Cranial nerves II-XII grossly intact. Motor strength 5/5 in all extremities. Sensory grossly intact. Vital Signs: 10/25 23:35 BP 132 / 96; Pulse 119; Resp 18 S; Temp 98.6; Pulse Ox 95% on R/A; bb MDM: 10/26 01:18 Patient medically screened. jr8 01:54 Data reviewed: vital signs, nurses notes, and as a result, I will discharge patient. jr8 Data interpreted: Pulse oximetry: on room air is 95 %. Interpretation: normal. Counseling: I had a detailed discussion with the patient and/or guardian regarding: the historical points, exam findings, and any diagnostic results supporting the discharge/admit diagnosis, the need for outpatient follow up, a family practitioner, to return to the emergency department if symptoms worsen or persist or if there are any questions or concerns that arise at home. Administered Medications: 02:10 Drug: Ondansetron 4 mg Route: PO; bb 02:10 Drug: Tylenol 1000 mg Route: PO; bb Disposition: 06:20 Co-signature as Attending Physician, David Brown MD. mh7 Disposition Summary: 10/26/21 01:55 Discharge Ordered Location: Home jr8 Problem: new jr8 Symptoms: have improved jr8 Condition: Stable jr8 Diagnosis - Drug abuse counseling and surveillance of drug abuser jr8 Followup: jr8 - With: Private Physician - When: 2 - 3 days - Reason: Recheck today's complaints, Continuance of care, Re-evaluation by your physician Discharge Instructions: - Discharge Summary Sheet jr8 - Finding Treatment for Addiction jr8 Forms: - Medication Reconciliation Form jr8 - Thank You Letter jr8 - Antibiotic Education jr8 - Prescription Opioid Use jr8 Signatures: Keena Lazaro RN RN Chante Camara RN RN iw Roszak, Guanako, PA PA jr8 David Brown MD MD [email or web address]
[2021-10-26] MEDS ORDERED: ONDANSETRON 4 MG (ODT) TAB ONE (02:12)
[2021-10-26] MEDS ORDERED: ACETAMINOPHEN 500 MG TAB ONE (02:12)
[2021-10-26 02:23] VITALS: BP 132/96; TEMP 98.6; O2SAT 95
== END 2021-10-26 02:18 | disposition home or self-care (01) ==
LOC: ER 19:25
DX: F15.10 Other stimulant abuse, uncomplicated (principal); Z71.51 Drug abuse counseling and surveillance of drug abuser; Z88.5 Allergy status to narcotic agent
CPT/HCPCS: 99283

== ENCOUNTER 2021-10-29 08:32 | Emergency (ER) | payer OTHER ==
--- OUTSIDE RECORDS SUMMARY | 2021-10-29 08:40 | XMS REPORT | Continuity of Care Document ---
:1970 Author Organization [facility] t Address [address] [place] [address] Care Team Providers Name Role Phone UNKNOWN [...] Number Effective Date Expiration Date S nasim [facility] [place] - [phone] 2020 [employer] 00:00:00 (MEDICARE REPLACEMENT/ADVANT AGE - HMO) Problems Condition Condition Condition Status Onset Resolution Last Treating Co mments Source Name Details Category Date Date Treatment Clinician Date LOW PB Diagnosis Active 2019-01-22 Mem oria 01-21 01:52:00 l LOW PB 00:00: Jackson 00 Active 01/21/2019 [facility] INFECTIOUS Diagnosis Active 2019-02-06 Memoria GASTROENTE 01-21 08:58:00 l RITIS AND 00:00: [place] COLITIS INFECTIOUS 00 GASTROENTE RITIS AND COLITIS Active 01/21/2019 [facility] Irregular Irregular Disease Active Uni vers menstrual menstrual 8-15 ity of cycle cycle 00:00: [address] Skin Skin Disease Active Univers lesion lesion 8-15 ity of 00:00: [address] Psychiatri Psychiatri Disease Active U nivers c disorder c disorder 8-15 it y of 00:00: [address] Well woman Well woman Disease Active U nivers exam with exam with 8-15 ity of routine routine 00:00: [place] gynecologi gynecologi 00 Me dical nicky exam nicky exam Branch INFECTIOUS Diagnosis Active 2019-02-06 Memoria GASTROENTE 08:58:00 l RITIS AND Yonis COLITIS, INFECTIOUS GASTROENTE RITIS AND COLITIS, Active [facility] Allergies, Adverse Reactions, Alerts Allergy Allergy Status Severity Reaction(s) Onset Inactive Treating Comm ents Source Name Type Date Date Clinician promanaa DA Active [place] [facility] zine 1-01 Clear 00:00: Catherine 00 [facility] prometha DA Active U [facility] zine 7-04 Clear 00:00: Catherine 00 [facility] NO KNOWN Drug Active Univers ALLERGIE Class ity of S [facility] Phenerga Phenerga Active [place] [facility] [place] Social History Social Habit Start Date Stop Date Quantity Comments Source History of Cigarette Smoker Universi ty of tobacco use [facility] Tobacco Comment 2-3 cigs a day Unive rsity of [facility] Exposure to Not sure University of SARS-CoV-2 [facility] (event) [place] Tobacco use and 2016-06-08 2016-06-08 Never used Universit y of exposure 00:00:00 00:00:00 [facility] Alcohol intake 2016-06-08 2016-06-08 0 /d University of 00:00:00 00:00:00 [facility] Sex Ass[birth year] At [birth year] Universit y of 00:00:00 00:00:00 [facility] Smoking Status Start Date Stop [...] of 1,000 mg in 08:30: 08:01 Piggyback, [place] NaCl 0.9% 00 :00 ONCE, 1 Medical (NS) 50 mL dose, On Bran h MINI-BAG Wed09/10/21 at 0230, Administer over 30 Minutes, 50 mL
Reas on for Anti-Infec tive: Documented Infection< br>Documen ngozi Infection Site: Urine<br&g t;Duration of Therapy: Other (see Comments) ondansetron 2020-10 No 4mg 4 mg, Slow Univers (ZOFRAN 11-10 IV Push, ity of (PF)) 06:45: 05:54 ONCE, 1 [place] injection 4 00 :00 dose, On Medi nicky mg Wed [place] 09/10/21 at 0045, RANDA NaCl 0.9% 2020-10- No 1000mL at 999 Uni vers (NS) bolus 11-10 mL/hr, ity of infusion 05:30: 05:30 1,000 mL, Joe as 1,000 mL 00 :00 IV Medical Infusion, Branch ONCE, 1 dose, On 09/09/21 at 2330, RANDA amoxicillin 2020-10 Yes [id number] 500mg Take 1 Univers 500 mg 11-10 capsule by ity of capsule 00:00: mouth 3 [place] 00 (three) Medical times Branch daily. ondansetron 2019-10- No 4mg 4 mg, Univ ers (ZOFRAN-ODT 12-01 Oral, ity of ) 15:15: 14:16 ONCE, 1 [place] disintegrat 00 :00 dose, Mon Med ical ing tablet 09/30/20 at [facility] nc 4 mg 0915, Routine ondansetron 2019-10 2020- No 4mg 4 mg, [facility] (ZOFRAN-ODT 2-07 12-07 Oral, ity of ) 14:30: 13:32 ONCE, 1 [place] disintegrat 00 :00 dose, Mon Med ical ing tablet 09/30/20 at [facility] 4 mg 0830, Routine ondansetron 2019-10 Yes [id number] 4mg Take 1 Univers 4 mg 2-07 tablet by ity of disintegrat 00:00: mouth [place] ing tablet 00 every 8 Medica l (eight) Branch hours as needed for Nausea and Vomiting (N/V). ondansetron 2019-10 Yes [id number] 4mg Take 1 Univers 4 mg 2-07 tablet by ity of disintegrat 00:00: mouth [place] ing tablet 00 every 8 Medica l (eight) Branch hours as needed for Nausea and Vomiting (N/V). ondansetron 2019-10 Yes [id number] 4mg Take 1 Univers 4 mg 2-07 tablet by ity of disintegrat 00:00: mouth [place] ing tablet 00 every 8 Medica l (eight) Branch hours as needed for Nausea and Vomiting (N/V). ondansetron 2019-10 Yes [id number] 4mg Take 1 Univers 4 mg 2-07 tablet by ity of disintegrat 00:00: mouth [place] ing tablet 00 every 8 Medica l (eight) Branch hours as needed for Nausea and Vomiting (N/V). ciprofloxac Yes 500 mg = 1 Memoria in 500 mg 4-04 tab, PO, l oral tablet 17:35: [id number], X [place] 00 4 day, # 8 tab, 0 Refill(s) Ondansetron 2019 Yes 4 mg = 1 Me moria 4 MG Oral 4-04 tab, PO, l Tablet 17:35: Q6H, PRN [place] [Zofran] 00 Nausea/Vom iting, # 20 tab, [...] 4-04 tab, PO, l oral tablet 17:35: [id number], X [place] 00 4 day, # 8 tab, 0 Refill(s) Ondansetron 2019- Yes 4 mg = 1 Me moria 4 MG Oral 4-04 tab, PO, l Tablet 17:35: Q6H, PRN [place] [Zofran] 00 Nausea/Vom iting, # 20 tab, [...] 4-03 (Same as: l 13:26: K-Dur 20) [place] 00 "Do Not Crush" Give with food and full glass of water For patients unable to swallow tablet, dissolve in one half glass of water. Allow about 2 minutes for the tablets to disintegra te. Stir before giving to prepare slurry and administer . Please exclude Patient s with feeding tube less than 14 [place] (Dobhoff, J-tube etc) and pediatric and patients. [...] s with feeding tube less than 14 [place] (Dobhoff, J-tube etc) and pediatric and patients. [...] ia - (Same As: l 18:00: KlonoPIN) [place] 00 Clonazepam No Notes: Memor ia 4- (Same As: l 18:00: KlonoPIN) Yonis 00 Flagyl No Notes: Memoria - (Same as: l 15:00: Flagyl) [place] Take with food/ avoid alcohol Cipro No Notes: May Memori a - interfere l 15:00: w/enteral Yonis 00 feedings - Take 1 hr before or 2 hrs after antacids, dairy pdt & minerals. On empty stomach. Flagyl No Notes: Memoria 4- (Same as: l 15:00: Flagyl) [place] 00 Take with food/ avoid alcohol Cipro [...] MG 4-01 PO, l Oral Tablet 14:20: [id number], 0 [place] [Cipro] 00 Refill(s) potassium 2019 Yes 40 mEq, Memor ia chloride 20 4-01 PO, ONCE, l mEq oral 14:20: 0 [place] tablet, 00 Refill(s) extended release Metronidazo No 500 mg, Mem oria le 500 MG 4-01 PO, l Oral Tablet 14:20: [id number], 0 H ermann [Flagyl] 00 Refill(s) Ciprofloxac No 500 mg, Mem oria in 500 MG 4-01 PO, l Oral Tablet 14:20: [id number], 0 [place] [Cipro] 00 Refill(s) Potassium No Notes: Memori [...] s with feeding tube less than 14 [place] (Dobhoff, J-tube etc) and pediatric and patients. Potassium No Notes: Memori a Chloride 4-01 (Same as: l 14:17: K-Dur 20) Yoins 00 "Do Not Crush" Give with food and full glass of water For patients unable to swallow tablet, dissolve in one half glass of water. Allow about 2 minutes for the tablets to disintegra te. Stir before giving to prepare slurry and administer . Please exclude Patient s with feeding tube less than 14 [place] (Dobhoff, J-tube etc) and pediatric and patients. [...] tab, PO, l Tablet 21:08: BID, 0 [place] [Risperdal] 00 Refill(s) Strattera Yes 0.5 mg/kg, [...] 01-22 Route: IM, l 09:47: Drug form: [place] 00 PDR/INJ, PRN, Dosing Weight 75.994, kg, PRN Blood Glucose Results, Start date: 01/22/19 4:47:00 CDT, Duration: 30 day, Stop date: 02/21/19 4:46:00 CDT Dextrose No 12.5 gm, Memor ia 50% Syringe 01-22 25 mL, l 09:47: Route: [place] 00 IVP, Drug Form: INJ, Dosing Weight [...] Memoria 3-31 (Same as: l 06:10: Zosyn) [place] 00 Dosing based on Piperacill in component [...] moria IV 3-31 1,000 l 05:44: ml/hr, [place] 00 Infuse Over: 1 hr, Route: IV, [...] Memoria 3-31 (Same as: l 04:52: Zofran) [place] 00 MEDICATION WASTE Product Size: 4 mg Product Wasted: ___ mg Saline No Notes: Memoria Flush 0.9% 3-31 Same as: l 04:52: BD [place] 00 Posiflush Sterile NS (Bolus) No 1,000 [...] tablet by ity of HYDROCHLORI 00:00: mouth [place] DE,) 4 mg 00 every 8 Medical tablet (eight) Branch hours. ondansetron 2017-0 Yes 4mg Take 1 Univ ers (ZOFRAN, 1-27 tablet by ity of HYDROCHLORI 00:00: mouth [place] DE,) 4 mg 00 every 8 Medical tablet (eight) Branch hours. ibuprofen 2016-0 Yes 200mg Take 200 Uni vers (ADVIL) 200 8-15 mg by ity of mg tablet 19:02: mouth [place] [address] every 6 Medical (six) Branch hours as needed. CLONAZEPAM 2016-0 Yes Take by Uni vers (KLONOPIN 8-15 mouth. ity of ORAL) 19:02: [address] Branch CITALOPRAM 2016-0 Yes Take by Uni vers HYDROBROMID 8-15 mouth. ity of E 19:02: [place] (CITALOPRAM 27 Medical ORAL) Branch ibuprofen 2016-0 Yes 200mg Take 200 Uni vers (ADVIL) 200 8-15 mg by ity of mg tablet 14:02: mouth [place] [address] every 6 Medical (six) Branch hours as needed. CLONAZEPAM 2016-0 Yes Take by Uni vers (KLONOPIN 8-15 mouth. ity of ORAL) 14:02: [address] Branch CITALOPRAM 2016-0 Yes Take by Uni vers HYDROBROMID 8-15 mouth. ity of E 14:02: [place] (CITALOPRAM 27 Medical ORAL) Branch ibuprofen 2016-0 Yes 200mg Take 200 Uni vers (ADVIL) 200 8-15 mg by ity of mg tablet 14:02: mouth [place] [address] every 6 Medical (six) Branch hours as needed. CLONAZEPAM 2016-0 Yes Take by Uni vers (KLONOPIN 8-15 mouth. ity of ORAL) 14:02: [address] Branch CITALOPRAM 2016-0 Yes Take by Uni vers HYDROBROMID 8-15 mouth. ity of E 14:02: [place] (CITALOPRAM 27 Medical ORAL) Branch ibuprofen 2016-0 Yes 200mg Take 200 Uni vers (ADVIL) 200 8-15 mg by ity of mg tablet 14:02: mouth [place] [address] every 6 Medical (six) Branch hours as needed. CLONAZEPAM 2016-0 Yes Take by Uni vers (KLONOPIN 8-15 mouth. ity of ORAL) 14:02: [place] 27 Medical Branch CITALOPRAM Yes Take by Uni vers HYDROBROMID 8-15 mouth. ity of E 14:02: [place] (CITALOPRAM 27 Medical ORAL) Branch misoprostol Yes [...] H it y of en-caff 00:00: PRN. [place] (ESGIC) 00 Medical 50-325-40 Branch mg tablet butalbital- Yes TK 1 TO 2 U nivers acetaminoph 8-01 T PO Q 8 H it y of en-caff 00:00: PRN. [place] (ESGIC) 00 Medical 50-325-40 Branch mg tablet butalbital- Yes TK 1 TO 2 U nivers acetaminoph 8-01 T PO Q 8 H it y of en-caff 00:00: PRN. [place] (ESGIC) 00 Medical 50-325-40 Branch mg tablet butalbital- Yes TK 1 TO 2 U nivers acetaminoph 8-01 T PO Q 8 H it y of en-caff 00:00: PRN. [place] (ESGIC) 00 Medical 50-325-40 Branch mg tablet [...] ity of mg tablet 00:00: every 6 [place] 00 (six) Medical hours as Branch needed [...] ity of mg tablet 00:00: every 6 [place] 00 (six) Medical hours as Branch needed for Pain (scale 4-6). naproxen 2014-10 Yes 500mg Take 1 Tab Un parul (NAPROSYN) 1-16 by mouth 2 ity of 500 mg 00:00: (two) [place] tablet 00 times Medical daily with Branch meals. Vital Signs Vital Name Observation Time Observation Value Comments Source Systolic blood 2021-09-10 08:01:00 138 mm[Hg] [facility] Diastolic blood 2021-09-10 08:01:00 97 mm[Hg] [facility] Heart rate 2021-09-10 08:01:00 87 /min [facility] Respiratory rate 2021-09-10 08:01:00 20 /min [facility] Oxygen saturation in 2021-09-10 08:01:00 98 /min [facility] Arterial blood by [facility] Pulse oximetry Branch Body temperature 2021-09-10 04:28:51 37.17 Ruthann [facility] Body height 2021-09-10 04:26:00 154.9 cm [facility] Body weight 2021-09-10 04:26:00 81.647 kg [facility] BMI 2021-09-10 04:26:00 34.01 kg/m2 [facility] Systolic blood 2021-09-09 20:06:00 150 [...] 99 /min University of Arterial blood by [place] [employer] nicky Pulse oximetry Branch Body weight 2021-09-09 20:05:00 81.647 kg [facility] [place] [facility] BMI 2021-09-09 20:05:00 32.40 kg/m2 [facility] [place] [facility] Systolic blood 2020-09-30 14:00:00 126 mm[Hg] Univer sity of pressure [place] [facility] Diastolic blood 2020-09-30 14:00:00 84 mm[Hg] Unive rsity of pressure [place] [facility] Heart rate 2020-09-30 14:00:00 79 /min [facility] [place] [facility] Oxygen saturation in 2020-09-30 14:00:00 98 /min University of Arterial blood by [place] [employer] nicky Pulse oximetry Branch Body temperature 2020-09-30 [...] 98 /min University of Arterial blood by [place] [employer] nicky Pulse oximetry Branch Body temperature 2020-09-30 13:26:00 37.22 Ruthann [facility] Respiratory rate 2020-09-30 13:26:00 16 /min [facility] Body weight 2020-09-30 13:26:00 72.576 kg [facility] BMI 2020-09-30 13:26:00 28.80 kg/m2 [facility] Temperature Oral (F) 2019-01-28 01:16:00 98.6 F [facility] Systolic (mm Hg) 2019-01-28 01:16:00 Estrada rial [place] Diastolic (mm Hg) 2019-01-28 01:16:00 Mem orial [place] Heart Rate 2019-01-28 01:16:00 [facility] Yonis Respitory Rate 2019-01-28 01:16:00 Memori al Yonis Systolic (mm Hg) 2019-01-27 20:42:00 Estrada rial Yonis Diastolic (mm Hg) 2019-01-27 20:42:00 Mem orial [place] Heart Rate 2019-01-27 20:42:00 Memorial Yonis Respitory Rate 2019-01-27 20:42:00 Memori al [place] Temperature Oral (F) 2019-01-27 20:42:00 98.5 F [facility] [place] Systolic (mm Hg) 2019-01-27 17:00:00 Estrada rial Yonis Diastolic (mm Hg) 2019-01-27 17:00:00 Mem orial [place] Temperature Oral (F) 2019-01-27 17:00:00 98.5 F [facility] [place] Heart Rate 2019-01-27 17:00:00 [facility] Yonis Respitory Rate 2019-01-27 17:00:[facility] Height 2019-01-22 14:35:00 157.48 cm [facility] BMI Calculated 2019-01-22 14:35:00 Memori al [place] Weight 2019-01-22 14:35:00 [facility] Weight 2019-01-22 04:34:00 [facility] Procedures Procedure Date / Time Performing Clinician Source Performed URINALYSIS 2021-09-10 06:03:00 Neena Bradford o f [facility] URINE DRUG (IMMUNOASSAY) 2021-09-10 06:03:00 Neena Bradford [facility] Medical [facility] nch SCREEN W/O REFLEX XR CHEST 1 VW 2021-09-10 04:57:30 Neena Bradford [facility] CREATINE KINASE 2021-09-10 04:39:00 Neena Bradford [facility] MAGNESIUM 2021-09-10 04:39:00 Sanchez Neena [facility] TROPONIN I 2021-09-10 04:39:00 Neena Bradford [facility] COMP. METABOLIC PANEL 2021-09-10 04:39:00 Neena Bradford [facility] ([id number]) [facility] Branch CBC WITH DIFF 2021-09-10 04:39:00 Sanchez [facility] PROTHROMBIN TIME / INR 2021-09-10 04:39:00 Neena Bradford [facility] ACTIVATED PARTIAL 2021-09-10 04:39:00 [facility] 2021-09-10 04:39:00 Neena Bradford [facility] COVID-19 (ID NOW RAPID 2021-09-10 04:39:00 Neena Bradford [facility] TESTING) Medical Branch TROPONIN I 2021-09-09 21:49:00 Luanne Dumont [facility] COMP. METABOLIC PANEL 2021-09-09 21:49:00 Luanne Dumont [facility] ([id number]) Medical Branch LITHIUM 2021-09-09 21:49:00 Luanne Dumont [facility] CBC WITH DIFF 2021-09-09 21:49:00 DumontLuanne buenrostro [facility] CONSENT/REFUSAL FOR 2021-09-09 19:51:22 Doctor Unassigned, No Un [facility] DIAGNOSIS AND TREATMENT Name Medical Branch URINALYSIS 2020-09-30 13:27:00 Singer Chuy [facility] ADC,CLC OR LCC ONLY - 2020-09-30 13:27:00 Chuy Jackson [facility] INFLUENZA A & B DIRECT Medical B ranch ANTIGEN COVID-19 (ID NOW RAPID 2020-09-30 13:27:00 Chuy [place] [facility] [place] TESTING) Medical Branch Encounters Start End Encounter Admission Attending Care Care Encounter Source Date/Time Date/Time Type Type Clinicians Facility Department ID 2019-01-22 Inpatient E [facility] MED [id number] [facility] 04:39:00 2021-10-25 2021-10-25 Emergency EM OLIVER Reynaga [id number] [facility] 01:01:00 01:57:00 Lulú [id number] [facility] 2021-09-09 2021-09-10 [facility] [id number] Univers 22:20:00 03:02:00 Neena WALSH [id number] i ty of [place] [id number] [facility] [id number] [address] 2021-09-09 2021-09-10 Emergency Lise BRADFORD [facility] ERT [id number] Univers 22:20:00 03:02:00 NEENA tubbs [facility] 2021-09-09 2021-09-10 Emergency [facility] [id number] Univers 22:20:00 03:02:00 NEENA tubbs [facility] 2021-09-09 2021-09-09 Emergency Julia [facility] [id number] Univers 14:07:00 17:35:00 Luanne WALSH [id number] i ty [facility] [id number] [facility] [id number] [address] 2021-09-09 2021-09-09 Orders Doctor BELKYS [id number] Univers 00:00:00 00:00:00 Only Unassigned, LANA [id number] ity of [facility] 4.2.7.2.686 Joe as [id number] [place] [address] Branch 2020-09-30 2020-09-30 Emergency Singer [facility] [id number] Univers 07:22:00 08:18:00 Chuy Walsh [id number] i ty of [place] [id number] [facility] [id number] [place] [id number] Branch 2020-09-30 2020-09-30 Emergency [facility] [id number] 07:22:00 08:18:00 Chuy Walsh [id number] [place] [id number] [facility] [id number] 2020-09-30 2020-09-30 Emergency X SINGER [facility] ERT [id number] Univers 07:22:00 07:22:00 CHUY tubbs [facility] 2020-04-05 2020-04-05 Outpatient Humaira-Mbayo VFP VFP [id number] [facility] 05:44:00 05:44:00 _A_AH [id number] Family Practic e 2020-04-05 2020-04-05 Outpatient Humaira-Mbayo VFP VFP [id number] [place] 05:44:00 05:44:00 _A_AH [id number] Family Practic e 2020-04-05 2020-04-05 Outpatient Humaira-Mbayo VFP VFP [id number] [facility] 05:44:00 05:44:00 _A_AH [id number] Family Practic e 2020-04-05 2020-04-05 Outpatient Humaira-Mbayo VFP VFP [id number] [place] 05:44:00 05:44:00 _A_AH [id number] Family Practic e 2020-03-04 2020-03-14 Inpatient 3 [facility] [id number] 15:38:00 15:25:00 [facility] 2019-12-13 2019-12-13 Outpatient Humaira-Mbayo VFP VFP [id number] [facility] 07:22:00 07:22:00 _A_AH [id number] Family Practic e 2019-01-22 2019-01-28 Inpatient [facility]ly [facility] [id number] Memoria 04:33:00 04:40:00 martin Somers 00 l [facility] 2018-02-21 2018-02-20 Inpatient E [facility] [id number] 14:48:00 13:18:00 [facility] Results Test Description Test Time Test Comments Results Result Comments Source CBC W/AUTO DIFF 2021-10-26 00:11:00 Test Item Value Reference Range Interpretation Comme nts WHITE BLOOD CELL (test code = WBC) 10.9 K/uL 3.5-11.0 N RED BLOOD CELL (test code = RBC) 4.21 M/uL 3.54-5.02 N HEMOGLOBIN (test code = HGB) 12.0 GM/DL 11.0-15.0 N HEMATOCRIT (test code = HCT) 35.9 % 37.0-47.0 L MEAN CELL VOLUME (test code = MCV) 85.3 fL 81.0-99.0 N MEAN CELL HGB (test code = MCH) 28.5 pg 27.0-31.0 N MEAN CELL HGB CONCETRATION (test code = MCHC) 33.4 GM/DL 33.0-37. 0 N RED CELL DISTRIBUTION WIDTH CV (test code = RDW) 14.8 % 11.5- 14.5 H PLATELET COUNT (test code = PLT) 524 K/mm3 150-400 H MEAN PLATELET VOLUME (test code = MPV) 9.2 FL 8.8-13.1 N NEUTROPHIL % (test code = NT%) 69.9 % 40.0-76.0 N LYMPHOCYTE % (test code = LY%) 23.2 % 15.0-40.0 N MIXED % (test code = MX%) 6.9 % 3.0-15.0 N NEUTROPHIL # (test code = NT#) 7.6 K/uL 1.8-7.6 N LYMPHOCYTE # (test code = LY#) 2.5 K/uL 1.0-3.8 N MIXED # (test code = MX#) 0.8 k/mm3 0.1-0.8 N UA RFLX MICR CULT IF [id number] 03:42:00 Test Item Value Reference Range Interpretation Comments UA COLOR (test code = COLU) YELLOW YEL/STRAW UA APPEARANCE (test code = TURBID CLEAR A APPU) UA GLUCOSE DIPSTICK (test code NEGATIVE NEGATIVE = DGLUU) UA BILIRUBIN DIPSTICK (test NEGATIVE NEGATIVE code = BILU) UA KETONE DIPSTICK (test code 1+ NEGATIVE A = KETU) UA SPECIFIC GRAVITY (test code 1.025 1.005-1.030 N = SGU) UA BLOOD DIPSTICK (test code = NEGATIVE NEGATIVE KAMERON) UA PH DIPSTICK (test code = 5.0 5.0-7.0 N JOHN) UA PROTEIN DIPSTICK (test code NEGATIVE NEGATIVE = PROU) UA UROBILINIOGEN DIPSTICK 0.2 mg/dL 0.2-1.0 (test code = URO) UA NITRITE DIPSTICK (test code NEGATIVE NEGATIVE = LOLIS) UA LEUKOCYTE ESTERASE DIPSTICK 2+ NEGATIVE A (test code = LEUU) UA WBC (test code = WBCU) >50 WBC/HPF 0-3 A UA RBC (test code = RBCU) 0-3 RBC/HPF 0-3 UA WBC NO REFLEX (test code = >50 WBC/HPF 0-3 A WBCUCL) UA BACTERIA (test code = BACU) NONE SEEN /HPF NONE SEEN UA SQUAMOUS CELLS (test code = NONE SEEN /HPF NONE SEEN SQU) UA AMORPHOUS SEDIMENT (test 3+ /HPF NONE A code = AMORU) TROPONIN-I [id number] 01:52:00 Test Item Value Reference Range Interpretation Comments TROPONIN-I RAPID 0.00 ng/mL 0.00-0.08 N Performed b y certified (test code = as400 operator at [facility]) Med Ctr Negative: <= 0.0 8 [...] changes in trop onin levels characteristic of [place]. BASIC METABOLIC [id number] 01:47:00 Test Item Value Reference Range Interpretation [...] code = POCGLU) 110 MG/DL UA DIPSTICK [id number] 01:32:00 Test Item Value Reference Range Interpretation Comments UA GLUCOSE DIPSTIC POC NEGATIVE NEGATIVE (test code = GLUUP) UA BILIRUBIN DIPSTICK NEGATIVE NEGATIVE (test code = BILU) UA KETONE DIPSTICK POC 1+ NEGATIVE A (test code = KETUP) UA SPECIFIC GRAVITY (test 1.030 1.005-1.030 N code = SGU) UA BLOOD DIPSTIC POC NEGATIVE NEGATIVE Perform ed by (test code = BLUP) certified as400 operator at [facility] UA PH DIPSTIC POC (test 5 5.0-7.0 N code = PHUP) UA PROTEIN DIPSTICK POC NEGATIVE NEGATIVE (test code = DPROUP) UA UROBILINIOGEN QUAL NORMAL 0.2-1.0 (test code = UROQL) UA NITRITE DIPSTICK POC NEGATIVE Negative (test code = NITUP) UA LEUKOCYTE ESTERASE W 2+ NEGATIVE A REFLEX (test code = LEUUR) TROPONIN [id number] 05:26:53 Test Item Value Reference Interpretation Comments Range TROPONIN I (test 0.003 ng/mL See_Comment [Automated code = 9847337958) message] The system which generated this result [...] biotin. Lab Interpretation Normal (test code = 16670-3) [id number] 05:24:16 Test Item Value Reference Range Interpretation Comments NT-proBNP (test code 35 pg/mL See_Comment [Autom ated = 8279471944) message] The system which generated this result transmitted reference range : <=125. The reference range was not used to interpret this result as normal/abnormal . PERRY (test code = PERRY) Biotin has been reported to cause a negative bias, interpret results relative to patient's use of biotin. Lab Interpretation Normal (test code = 79002-6) [facility] 05:16:51 Test Item Value Reference Range Interpretation Comments MAGNESIUM (test code = 8816980968) 1.8 mg/dL 1.7-2.4 Lab Interpretation (test code = Normal 49284-4) [facility]. METABOLIC PANEL (17668)2021-09-10 05:16:31 Test Item Value Reference Range Interpretation Comments NA (test code = 139 mmol/L 135-145 9549606301) K (test code = 4.0 mmol/L 3.5-5.0 6995266014) CL (test code = 108 mmol/L 98-108 6874494480) CO2 TOTAL (test code 25 mmol/L 23-31 = 2281174185) AGAP (test code = 2-16 6913903918) BUN (test code = 14 mg/dL 7-23 9496131406) GLUCOSE (test code = 88 mg/dL 70-110 6257152379) CREATININE (test code 0.89 mg/dL 0.50-1.04 = 2947570063) TOTAL BILI (test code 0.5 mg/dL 0.1-1.1 = 8178506696) CALCIUM (test code = 10.3 mg/dL 8.6-10.6 0112066708) T PROTEIN (test code 6.9 g/dL 6.3-8.2 = 0053576607) ALBUMIN (test code = 4.3 g/dL 3.5-5.0 0515362705) ALK PHOS (test code = 72 U/L 34-122 9798224456) ALTv (test code = 17 U/L 5-35 1742-6) AST(SGOT) (test code 29 U/L 13-40 = 7860466399) eGFR (test code = mL/min/1.73m2 8839194335) PERRY (test code = PERRY) Association of [...] or urine or abnormalities in imaging tests). [facility] KHFYRI4040-09-55 05:16:16 Test Item Value Reference Range Interpretation Comments CK (test code = 3031908296) 267 U/L 33-194 H Lab Interpretation (test code = Abnormal 71789-5) [facility] THRMPLAS NLL2320-05-67 05:05:32 Test Item Value Reference Range Interpretation [...] seconds. Lab Interpretation Normal (test code = 34022-1) [facility]PROT[facility]OM[facility] / [id number] 05:03:30 Test Item Value Reference Range Interpretation [...] tions. Lab Interpretation (test Normal code = 43448-2) [facility] WITH IZME1925-18-56 04:57:13 Test Item Value Reference Range Interpretation Comments WBC (test code = See_Comment [Automated 1790-2) message] The sy stem which generated this [...] RDW-SD (test code = 41.2 fL 39.0-49.9 48671-1) RDW-CV (test code = 13.0 % 12.0-15.5 788-0) PLT (test code = See_Comment H [Automated 777-3) message] The sy stem which generated this result transmitted reference range : 166 - 358 10*3/ ?L. The reference r katie was not used to interpret this result as normal/abnormal . MPV (test code = 9.6 fL 9.5-12.9 24573-5) NRBC/100 WBC (test See_Comment [Automat ed code = 6553808177) message] The system which generated this result transmitted reference range : 0.0 - 10.0 /100 WBCs. The refer ence range was not u sed to interpret th is result as normal/abnormal . NRBC x10^3 (test code <0.01 See_Comment [Auto mated = 5034180213) message] The s [employer] which generated this result transmitted reference range : 10*3/?L. The reference range was not used to interpret this result as normal/abnormal . GRAN MAT (NEUT) % 61.9 % (test code = 770-8) IMM GRAN % (test code 0.30 % = 5046063781) LYMPH % (test code = 26.0 % 736-9) MONO % (test code = 9.5 % 5905-5) EOS % (test code = 1.6 % 713-8) BASO % (test code = 0.7 % 706-2) GRAN MAT x10^3(ANC) 5.91 10*3/uL 1.88-7.09 (test code = 6936981360) IMM GRAN x10^3 (test 0.03 10*3/uL 0.00-0.06 code = 3627363004) LYMPH x10^3 (test code 2.48 10*3/uL 1.32-3.29 = 731-0) MONO x10^3 (test code 0.91 10*3/uL 0.33-0.92 = 742-7) EOS x10^3 (test code = 0.15 10*3/uL 0.03-0.39 711-2) BASO x10^3 (test code 0.07 10*3/uL 0.01-0.07 = 704-7) Lab Interpretation Abnormal (test code = 57952-4) [facility] [id number] 22:24:55 Test Item Value Reference Interpretation Comments Range TROPONIN I (test 0.002 ng/mL See_Comment [Automated code = 4514744889) message] The system which generated this result [...] biotin. Lab Interpretation Normal (test code = 56894-8) [facility] 22:24:34 Test Item Value Reference Range Interpretation Comments [place] (test code = <0.2 0.6-1.2 L 1670183567) PERRY (test code = PERRY) Toxic Range: ? Greater than 1.2 mmol/L Lab Interpretation (test Abnormal code = 76994-1) [facility]COM[facility]OLIC PAN[facility] (71498)2021-09-09 22:13:54 Test Item Value Reference Range Interpretation Comments NA (test code = 139 mmol/L 135-145 9270850590) K (test code = 4.0 mmol/L 3.5-5.0 4694788554) CL (test code = 105 mmol/L 98-108 7796127018) CO2 TOTAL (test code 26 mmol/L 23-31 = 8456061676) AGAP (test code = 2-16 5369714906) BUN (test code = 11 mg/dL 7-23 6594342769) GLUCOSE (test code = 109 mg/dL 70-110 0521039818) CREATININE (test code 0.71 mg/dL 0.50-1.04 = 6341112175) TOTAL BILI (test code 0.6 mg/dL 0.1-1.1 = 7505222859) CALCIUM (test code = 10.4 mg/dL 8.6-10.6 2428595559) T PROTEIN (test code 7.6 g/dL 6.3-8.2 = 9437665171) ALBUMIN (test code = 4.7 g/dL 3.5-5.0 8055767138) ALK PHOS (test code = 78 U/L 34-122 8768475854) ALTv (test code = 19 U/L 5-35 1742-6) AST(SGOT) (test code 28 U/L 13-40 = 6971332683) eGFR (test code = mL/min/1.73m2 6238023912) PERRY (test code = PERRY) Association of [...] or urine or abnormalities in imaging tests). [facility] WITH [id number] 22:03:32 Test Item Value Reference Range Interpretation Comments WBC (test code = See_Comment [Automated 1165-2) message] The sy stem which generated this result transmitted reference range : 4.30 - 11.10 10*3/?L. The reference range was not used to interpret this result as normal/abnormal . RBC (test code = See_Comment [Automated 975-8) message] The sy stem which generated this [...] RDW-SD (test code = 40.2 fL 39.0-49.9 96585-0) RDW-CV (test code = 12.9 % 12.0-15.5 788-0) PLT (test code = See_Comment H [Automated 777-3) message] The sy stem which generated this result transmitted reference range : 166 - 358 10*3/ ?L. The reference r katie was not used to interpret this result as normal/abnormal . MPV (test code = 9.4 fL 9.5-12.9 L 85875-8) NRBC/100 WBC (test See_Comment [Automat ed code = 4853991206) message] The system which generated this result transmitted reference range : 0.0 - 10.0 /100 WBCs. The refer ence range was not u sed to interpret th is result as normal/abnormal . NRBC x10^3 (test code <0.01 See_Comment [Auto mated = 6952110446) message] The s ystem which generated this result transmitted reference range : 10*3/?L. The reference range was not used to interpret this result as normal/abnormal . GRAN MAT (NEUT) % 67.1 % (test code = 770-8) IMM GRAN % (test code 1.00 % = 9052614375) LYMPH % (test code = 21.4 % 736-9) MONO % (test code = 7.9 % 5905-5) EOS % (test code = 1.8 % 713-8) BASO % (test code = 0.8 % 706-2) GRAN MAT x10^3(ANC) 7.35 10*3/uL 1.88-7.09 H (test code = 1560973203) IMM GRAN x10^3 (test 0.11 10*3/uL 0.00-0.06 H code = 8798977480) LYMPH x10^3 (test code 2.34 10*3/uL 1.32-3.29 = 731-0) MONO x10^3 (test code 0.86 10*3/uL 0.33-0.92 = 742-7) EOS x10^3 (test code = 0.20 10*3/uL 0.03-0.39 711-2) BASO x10^3 (test code 0.09 10*3/uL 0.01-0.07 H = 704-7) Lab Interpretation Abnormal (test code = 33931-5) [facility] ONLY - INFLUENZA A & B DIRECT JQLJWFF9769-76-09 14:04:00 Test Item Value Reference Range Interpretation Comments Influenza A (test code = 35112-3) Negative Negative Influenza B (test code = 72557-2) Negative Negative Lab Interpretation (test code = Normal 31364-0) [facility] (ID NOW RAPID TESTING)2020-09-30 14:03:00 Test Item Value Reference Range Interpretation Comments SARS-CoV-2 Rapid ID NOW Not Detected Not Detected (test code = 48697-9) PERRY (test code = PERRY) ID NOW COVID-19 Assay is an isothermal nucleic acid amplification test intended for the qualitative detection of nucleic acid from SARS-CoV-2 viral RNA in nasopharyngeal (BELL HOLE DIGGER) specimens. It is used under Emergency [...] indicated. Lab Interpretation Normal (test code = 55643-9) [facility] 13:55:00 Test Item Value Reference Range Interpretation Comments APPEARANCE (test code = Hazy Clear A 9301725675) COLOR (test code = Yellow Yellow 6393045686) PH (test code = 4.8-8.0 9083579860) SP GRAVITY (test code = 1.003-1.030 3330128509) GLU U QUAL (test code = Normal Normal 6257589730) BLOOD (test code = Negative Negative 3105245415) KETONES (test code = 5 mg/dL Negative A 0736417949) PROTEIN (test code = Negative Negative 2887-8) UROBILIN (test code = 2.0 mg/dL Normal A 3806092452) BILIRUBIN (test code = Negative Negative 2110200701) NITRITE (test code = Negative Negative 6903735453) LEUK ROZINA (test code = 25/uL Negative A 1351220511) RBC/HPF (test code = See_Comment [Autom ated message] 6234448517) The system [employer] generated this result transmit ngozi reference range : 0 - 3 HPF. The refe rence range was not u sed to interpret th is result as normal/abnormal . WBC/HPF (test code = See_Comment [Autom ated message] 3029345676) The system [employer] generated this result transmit ngozi reference range : 0 - 5 HPF. The refe rence range was not u sed to interpret th is result as normal/abnormal . BACTERIA (test code = Few Negative A 8916865835) MUCOUS (test code = Slight Negative LPF A 7136433280) SQ EPITH (test code = HPF 6519861513) Lab Interpretation (test Abnormal code = 75962-4) [facility] HospitalRPR Btosinadokj1597-77-93 16:42:24 Test Item Value Reference Range Interpretation [...] = 10-24-2020 N Expiration Dt) Thyroid Stimulating Zdjlkik1447-92-28 08:35:16 Test Item Value Reference Range Interpretation Comments TSH (test code = TSH) 1.170 mIU/mL 0.270-4.200 Lipid Rhhuc1907-53-27 08:21:19 Test Item Value Reference Range Interpretation Comments Cholesterol Total 254 mg/dL 0-200 H RISK OF HE ART (test code = DISEASEPublishe d by Cholesterol Total) [place] [employer] Cathie lyte Optimal Borderl ine [...] calculation is LDL/HDL Ratio=L DL Calc/HDL Chol ZJCAKTRGTHAE8775-84-21 08:24:008.6[facility] WglcrehEHXQEGEOLARV9942-24-96 08:24:38908Qstgiovu DnbalfbCLRPTPYWFGMD7918-34-24 08:24:0027[facility] QLKXQZJDBIFQ4301-73-97 08:24:15099Pxnjvdpo LhovqbbWBMGLZZUDFMO4542-76-86 08:24:003.6[facility] MlaedmaAJVUIJBFEVLD5306-75-64 08:24:000.70[facility] JUZHLOYMZBMK0978-72-98 08:24:008.4[facility] CrqhfhhFPFWUAZZCYGB9891-64-86 08:24:72444Izguegwy XyruynvGBMAPXECANCJ6648-03-63 08:24:0086[facility] WQGNBZHBJWTF1549-77-59 08:24:006[facility] QmdirncIEJCCTUSSC8383-57-10 08:24:00 11.6[facility] PycilruTVKAUNHZMJ1774-41-46 08:24:003.78[facility]annHEMATOLOGY 2019-01-26 08:24:0013.3[facility] VbwhxbpWAWIFICIGM1604-33-37 08:24:0034.0[facility] GhbzppuVOLDWUFHLF0011-58-99 08:24:006.3[facility] YlergkfWUSASMVPPJ0407-53-40 08:24:00 Test Item Value Reference Range Interpretation Comments MCH (test code = MCH) 30.7 pg 27.0-31.0 [facility] QcxirfcOETFRBEZRF0044-62-00 08:24:0090.3[facility] HermannHEMATOLOGY 2019-01-26 08:24:0034.2[facility] CmfuarrIJAOMXRGAF7023-62-86 08:24:51232Nviojzpi RpycigkZQZVKLVVWC1907-01-04 08:24:007.5[facility] SpwjninSKVEZSSKJIRL7698-04-78 08:24:008.6[facility] UbgofaeFCATTRSSUVIK7430-66-76 08:24:71274Ygebthzn Yonis ZSDYVTIWUTQD5100-72-66 08:24:0027[facility] MtdbztjSRPTXKQNFLYS2176-81-13 08:24:00 139[facility] OwugnwgQSTVWDJRZSHG4046-98-16 08:24:003.6[facility] YTLLRPPJDFLY9462-22-37 08:24:000.70[facility] WuysvxbANKRRYCOVRPB9213-91-42 08:24:008.4[facility] OqsxrtfGZZXDLTCPROI0082-34-17 08:24:84162Ktinxrbd [facility] ROJGQDZTNFQQ9971-78-44 08:24:0086[facility] IcjxtwvFWRPVFBLZHZQ3737-08-79 08:24:00 6[facility] RonycjoNAEENKTBHC3481-17-85 08:24:0011.6[facility] HermannHEMATOLOGY 2019-01-26 08:24:003.78[facility] NtyuttiUZIQZQLGHC2209-74-96 08:24:0013.3[facility] QmdthxzVOQSQAUCTK0061-78-20 08:24:0034.0[facility] HffjqhnLCRIYXVUAA4950-98-16 08:24:006.3[facility] ZccajcmTVYYROUDRQ7795-19-90 08:24:00 Test Item Value Reference Range Interpretation Comments MCH (test code = MCH) 30.7 pg 27.0-31.0 [facility] NblukzlWCIJGUCFPQ2572-74-14 08:24:0090.3[facility] HermannHEMATOLOGY 2019-01-26 08:24:0034.2[facility] NaorisbULJQVPBPHI1633-87-07 08:24:80802Xzoelvff VhhlzscHVZAEVTOMO0583-69-31 08:24:007.5[facility] HermannCHEM KKHJY6839-46-46 09:14:60128Pelansej HermannCHEM OPMGO5331-02-29 09:14:008.5[facility]annCHEM VXCAO7674-46-59 09:14:0013.3[facility]annCHEM TFEBJ2533-08-74 09:14:0024 [facility]annCHEM CDIZV9763-49-57 09:14:12988Vdyqiwra HermannCHEM PANEL 2019-01-25 09:14:0081[facility]annCHEM QGUCB4904-74-34 09:14:002[facility]annCHEM TCKAY6441-95-87 09:14:003.3[facility]annCHEM QOYVW6547-85-71 09:14:000.60[facility]annCHEM HBVFV4175-07-94 09:14:37466Ioivpvto HermannCHEM CLULL8031-46-28 09:14:11002Tzcfbqzd [facility]annCHE[facility] MLBYN9326-38-29 09:14:008.5 [facility]annCHEM CEKDA0239-61-66 09:14:0013.3[facility]annCHEM PANEL 2019-01-25 09:14:0024[facility]annCHEM MBZAD0730-70-41 09:14:46768Rglegmgk HermannCHEM FEESQ1881-00-60 09:14:0081[facility]annCHEM DLPDY6928-85-47 09:14:002[facility]annCHEM WDXHX4612-05-35 09:14:003.3[facility]annCHEM HJEXY2497-73-67 09:14:000.60[facility]annCHEM PFPOK7846-02-31 09:14:92216 [facility]annMOLECULAR UCCQUYNVJB7652-87-35 16:22:00Negative (01/23/19 11:22 AM)[facility]annMOLECULAR RCRQOODNUK7317-28-58 16:22:00Negative (01/23/19 11:22 AM)[facility]annCHEM RXJTX0458-96-04 15:42:002.76[facility]annCHEM PANEL 2019-01-23 15:42:002.76[facility]annCHEM ENFLI9230-04-28 12:32:000.9[facility]annCHEM PALHJ3939-28-83 12:32:000.9[facility]annCHEM UCILZ2095-54-30 10:50:002.0[facility]annCHEM INRJU6017-38-19 10:50:25115Wcqhmljp HermannCHEM MMSQE4084-61-01 10:50:0023[facility]annCHEM FNPPR1611-19-66 10:50:05798 [facility]annCHEM BTPJI8252-80-63 10:50:003.1[facility] HermannCHEM PANEL 2019-01-23 10:50:56768Xlxahsxx HermannCHEM PQEMP8156-64-49 10:50:005[facility]annCHEM KZTJE7109-27-76 10:50:000.50[facility]annCHEM LHAHI4116-50-25 10:50:007.8[facility]annCHEM BPECJ9532-79-03 10:50:0083[facility]annCHEM NKDDP8707-42-45 10:50:0010.1[facility] BcejmzrGJHRMTMSLZ5551-19-80 10:50:000.2 [facility] GtwhovcZBNFWCEMTF3661-90-50 10:50:000.8[facility]annHEMATOLOGY 2019-01-23 10:50:005.5[facility] ZnisostHCESCIZUFI6235-06-19 10:50:002.2[facility] HbavtqiTVJIKCXDTR7822-57-47 10:50:000.1[facility] HkfgxcmXSCPBGDFPM4411-21-56 10:50:0063.6[facility] BspkfxtVPWUULVBIK1631-27-72 10:50:008.9[facility] YUQURGYRNM2245-97-54 10:50:002.3[facility] CskqtabSMEUJTSBJI8240-11-23 10:50:00 Normal (01/23/19 5:50 AM)[facility] XlmebrtCAMZDQVHKN2380-94-31 10:50:00Normal (01/23/19 5:50 AM)[facility] ZnipwdwXFIXUOZLGJ1937-00-11 10:50:0025.1[facility] SeynhfrYRWCOFJBBC2195-35-19 10:50:0013.1[facility] UicmkzmMJZBHVPBSB2753-46-58 10:50:49016Azlcnwjl NdpolaeDWYIPYLMZZ0952-08-35 10:50:007.7[facility] HOWZFVQMJA7951-63-84 10:50:008.6[facility] UfeuknaRTOYXBOJQU7593-82-16 10:50:00 10.0[facility] MqstrojNEMGCYWUMS1483-63-49 10:50:0034.6[facility] HermannHEMATOLOGY 2019-01-23 10:50:0028.7[facility] XbrrytqRUMXZHACFN6153-21-15 10:50:0087.8[facility] RwptdzyDSKDJYFFUG0120-02-68 10:50:00 Test Item Value Reference Range Interpretation Comments MCH (test code = MCH) 30.4 pg 27.0-31.0 [facility] AtvwxfsXDEDBLMDBZ7825-31-10 10:50:003.27[facility] HermannCHEM PANEL 2019-01-23 10:50:002.0[facility] HermannCHEM UFEMB6505-61-43 10:50:54491Caqyhnmo HermannCHEM YNDFD1903-11-39 10:50:0023[facility]annCHEM SEQFW6520-50-69 10:50:52622Bgajeini HermannCHEM HKWGW5719-68-64 10:50:003.1[facility]annCHEM DOWLJ0805-31-54 10:50:28928Ifzmtgmt [facility]annCHEM SRRNW7161-03-49 10:50:005 [facility]annCHEM RHTWF5333-77-01 10:50:000.50[facility]annCHEM PANEL 2019-01-23 10:50:007.8[facility]annCHEM URUYW8516-00-27 10:50:0083[facility]annCHEM EFJUA2335-26-78 10:50:0010.1[facility] YjygkelXOUOJEJEND3023-82-80 10:50:000.2[facility] YhjfksgKXZMAEZPZG0281-95-79 10:50:000.8[facility] SDWTXVKNWC1673-32-44 10:50:005.5[facility] VkdpcofOIFRRALJIF1107-38-32 10:50:002.2 [facility] LbtvujhMPMNHBIEFO6343-42-28 10:50:000.1[facility]annHEMATOLOGY 2019-01-23 10:50:0063.6[facility] WrlubijETEATVAKZA1285-53-57 10:50:008.9[facility] HywavryWRUBZYWLED4420-28-83 10:50:002.3[facility] LfldrpfSKLIHCLARD4805-99-01 10:50:00Normal (01/23/19 5:50 AM)[facility] LipgdveXFVOBEMTWL8169-53-98 10:50:00 Normal (01/23/19 5:50 AM)[facility] UftfrozCVUHLUKNIB8055-29-49 10:50:0025.1[facility] AdldahzSYYGHUWWUY8699-16-53 10:50:0013.1[facility] BesxmiaDSBCRBJJMA4303-90-37 10:50:01275Ihajpyak HhfhlwsXHNVTDBKGJ9686-27-02 10:50:007.7[facility] CTBNPXOHLU4623-86-80 10:50:008.6[facility] SvxedhjRWWNDIBWMC9433-09-48 10:50:00 10.0[facility] GdqhfibMSXHSJWDSP7850-19-51 10:50:0034.6[facility] HermannHEMATOLOGY 2019-01-23 10:50:0028.7[facility] DagvmlaAFGOOZNGVM8119-82-37 10:50:0087.8[facility] ZlpsuzeUTIQDYRJWB2455-36-56 10:50:00 Test Item Value Reference Range Interpretation Comments MCH (test code = MCH) 30.4 pg 27.0-31.0 [facility] DnjbfafHSRYMPSNDI6795-66-25 10:50:003.27[facility] HermannCHEM PANEL 2019-01-22 11:32:002.4[facility] HermannCHEM EVBSL6576-73-79 11:32:002.4[facility] HermannCHEM UVURN5151-54-10 09:04:003.0[facility] HermannCHEM QVYSG3258-36-10 09:04:003.0[facility]annURINE AND HIXKY9985-60-19 07:14:00 Test Item Value Reference Range Interpretation Comments UA Spec Grav (test code = UA Spec 1.014 1 Grav) [facility] GIMPT1991-49-62 07:14:00 Test Item Value Reference Range Interpretation Comments UA pH (test code = UA pH) 6.0 1 5.0-8.0 [facility] XHTVZ0706-84-55 07:14:00Negative (01/22/19 2:14 AM) [facility] FGDBN8637-95-88 07:14:00Negative *NA*(01/22/19 2:14 AM) [facility] MJZRL8314-31-84 07:14:00Negative *NA*(01/22/19 2:14 AM) [facility] MEQNN8622-70-87 07:14:00Negative *NA*(01/22/19 2:14 AM) [facility] KVXZZ9538-71-72 07:14:00Negative (01/22/19 2:14 AM) [facility] VKORS5941-25-01 07:14:00Negative (01/22/19 2:14 AM) [facility] UZJQQ8391-88-03 07:14:00Negative (01/22/19 2:14 AM) [facility] MLZJR3984-86-21 07:14:00<1[facility] YWZJT8895-48-47 07:14:0025[facility] EGGCR9327-00-58 07:14:002 [facility] CKJFS6842-06-10 07:14:00Light Yellow *NA*(01/22/19 2:14 AM)[facility] XBXZJ4224-59-77 07:14:00Clear (01/22/19 2:14 AM) [facility] LVJYC4998-19-92 07:14:00 Test Item Value Reference Range Interpretation Comments UA Spec Grav (test code = UA Spec 1.014 1 Grav) [facility] NVMZL0528-33-30 07:14:00 Test Item Value Reference Range Interpretation Comments UA pH (test code = UA pH) 6.0 1 5.0-8.0 [facility] KHQUX3594-73-90 07:14:00Negative (01/22/19 2:14 AM) [facility] ZUNXO0020-57-26 07:14:00Negative *NA*(01/22/19 2:14 AM) [facility] JPFYQ3805-09-68 07:14:00Negative *NA*(01/22/19 2:14 AM) [facility] KVNSE7383-62-26 07:14:00Negative *NA*(01/22/19 2:14 AM) [facility] EHNRZ2860-60-48 07:14:00Negative (01/22/19 2:14 AM) [facility] VCCCX4358-60-18 07:14:00Negative (01/22/19 2:14 AM) [facility] WLYKR4565-13-01 07:14:00Negative (01/22/19 2:14 AM) [facility] MUSSV9093-44-78 07:14:00<1[facility] KAIMU4890-81-74 07:14:0025[facility] UNJRU1191-32-88 07:14:002 [facility] NQKMU5823-57-68 07:14:00Light Yellow *NA*(01/22/19 2:14 AM)[facility] FIWPN0967-74-13 07:14:00Clear (01/22/19 2:14 AM) [facility] YuqjdhrBOBKE4037-19-48 05:16:000.90[facility] BvfodcqTCTXM1721-56-46 05:16:000.90[facility] GrgnqrqXLDTWFWOCU7336-78-66 05:01:006.9[facility] UIARRRPSIF8993-51-32 05:01:009.9[facility] HvmfhjvDPWGIHKWUN7192-64-59 05:01:00 32.8[facility] DsnrswzKXZVDMGMHS2161-37-68 05:01:0013.6[facility]annHEMATOLOGY 2019-01-22 05:01:88890Rohamfpb AsydniaMIZSGJKXQE8933-35-64 05:01:007.3[facility] XgjzjbmWMEKSOPEBI2832-51-10 05:01:0014.0[facility] LtjuysmWVLGTHFJZV8936-12-68 05:01:004.85[facility] DwnedliUWWCMMISER6201-48-33 05:01:0042.7[facility] ARKSDTOKOQ1261-15-77 05:01:00 Test Item Value Reference Range Interpretation Comments MCH (test code = MCH) 29.0 pg 27.0-31.0 [facility] KjtberuPFGUOSCPRZ4020-95-45 05:01:0088.2[facility]annHEMATOLOGY 2019-01-22 05:01:00 Test Item Value Reference Range Interpretation Comments INR (test code = INR) 0.96 1 0.85-1.17 [facility] BvbtpwlLQQKWOWUKB7083-61-76 05:01:00 Test Item Value Reference Range Interpretation Comments PT (test code = PT) 12.6 s 12.0-14.7 [facility] XwfcblpCEOCSBXJTG0708-14-21 05:01:00 Test Item Value Reference Range Interpretation Comments PTT (test code = PTT) 25.9 s 22.9-35.8 [facility] SGOXVAU6307-98-75 05:01:00Negative (01/22/19 12:01 AM) [facility] HMRXHWW7570-12-98 05:01:00<0.02[facility] CARDIAC IDVFXEY4449-00-20 05:01:0049[facility] HermannCHEM EBEVG7295-02-29 05:01:000.6[facility]annCHEM WFKMU4388-37-61 05:01:58700Xbilacqo HermannCHEM OLMMZ6396-64-41 05:01:004.0[facility]annCHEM VWHKB5931-99-53 05:01:0017 [facility]annCHEM BKAWS3645-40-10 05:01:0025[facility]annCHEM PANEL 2019-01-22 05:01:008.1[facility]annCHEM MTTJV5616-33-37 05:01:00 Test Item Value Reference Range Interpretation Comments B/C Ratio (test code = B/C Ratio) 20 1 6-25 [facility]annCHEM GBUUV1643-34-82 05:01:00 Test Item Value Reference Range Interpretation Comments A/G Ratio (test code = A/G Ratio) 1.0 1 0.7-1.6 [facility]annCHEM NOPTU9755-17-65 05:01:004.1[facility]annCHEM PANEL 2019-01-22 05:01:006.90[facility] QadgujmDAWGMWVPWMXPY0624-45-44 05:01:00Negative *NA*(01/22/19 12:01 AM)[facility] LvnbfxtSPYLRBRKXP0510-76-08 05:01:000.1[facility] PmntmelVXSIWINUTL6604-99-66 05:01:000.7[facility] RcbjtarXJBVHSCGJO7128-28-14 05:01:000.0[facility] CieqfovLMZLSLMGSV3728-13-18 05:01:000.0[facility] Yonis SCEWQBMROC1964-45-33 05:01:000.9[facility] XvovqjiPSREILFBPC2575-52-26 05:01:008.6 [facility] VcngmasVLYHVVCCKL3663-51-27 05:01:000.6[facility]annHEMATOLOGY 2019-01-22 05:01:0086.5[facility] AmrrpneHVWIVDXGJL7586-60-43 05:01:005.7[facility] SfdrtysCSTLXJBVHP2859-06-16 05:01:006.9[facility] LprtnppFMTXSGRFSY7418-13-33 05:01:009.9[facility] MjewpkiVVSDLMTOOH3626-65-37 05:01:0032.8[facility] BBRLJCRBYJ3563-94-94 05:01:0013.6[facility] GrdsvvbDWXGDTFAEZ7348-34-34 05:01:00 443[facility] FocplhmUBYEFIXQLU4380-24-64 05:01:007.3[facility]annHEMATOLOGY 2019-01-22 05:01:0014.0[facility] ZcgtmgeSXTKIHGMSD6546-54-51 05:01:004.85[facility] XxftvziDKNHSPYGTN4247-86-27 05:01:0042.7[facility] VccjzinDGPCBOKPKI4391-41-39 05:01:00 Test Item Value Reference Range Interpretation Comments MCH (test code = MCH) 29.0 pg 27.0-31.0 [facility] OtvghxpZZMQSQUZUU0377-11-39 05:01:0088.2[facility] HermannHEMATOLOGY 2019-01-22 05:01:00 Test Item Value Reference Range Interpretation Comments INR (test code = INR) 0.96 1 0.85-1.17 [facility] XpwczejBNMDLEEPNS3489-43-75 05:01:00 Test Item Value Reference Range Interpretation Comments PT (test code = PT) 12.6 s 12.0-14.7 [facility] WcjuhumJWOXFTCJRC3700-99-40 05:01:00 Test Item Value Reference Range Interpretation Comments PTT (test code = PTT) 25.9 s 22.9-35.8 [facility] PZOZMZO8595-84-67 05:01:00Negative (01/22/19 12:01 AM) [facility]annCARDIAC VNPUVYM7048-63-85 05:01:00<0.02[facility] CARDIAC JDDNYIY7356-02-63 05:01:0049[facility]annCHEM UQMPH2702-80-23 05:01:000.6[facility]annCHEM OXNFJ2653-79-05 05:01:22135Xyxxfcmc HermannCHEM DSYKE9995-36-80 05:01:004.0[facility]annCHEM QSABM3420-86-90 05:01:0017 [facility]annCHEM AAANT8508-20-05 05:01:0025[facility]annCHEM PANEL 2019-01-22 05:01:008.1[facility]annCHEM FCSUT0901-34-78 05:01:00 Test Item Value Reference Range Interpretation Comments B/C Ratio (test code = B/C Ratio) 20 1 6-25 [facility]annCHEM OKGUB6815-06-13 05:01:00 Test Item Value Reference Range Interpretation Comments A/G Ratio (test code = A/G Ratio) 1.0 1 0.7-1.6 [facility]annCHEM CKVPV2041-09-30 05:01:004.1[facility]annCHEM PANEL 2019-01-22 05:01:006.90[facility] SjewdkiJHHALRMJFKFNA6024-86-78 05:01:00Negative *NA*(01/22/19 12:01 AM)[facility] XunqtshYVGSLDMDGM1071-29-33 05:01:000.1[facility] AahxwfsZOTSJKQQVI6884-82-24 05:01:000.7[facility] YtnkknhAOHYRRZYBH8895-35-61 05:01:000.0[facility] YogfwqqSSFAFYQANO4274-76-92 05:01:000.0[facility] AMDBUPRBCJ4440-67-40 05:01:000.9[facility] PtlnkdmCYLPVTKZUZ5896-48-12 05:01:008.6 [facility] SsdqabgHQYDDQCYCM9152-74-23 05:01:000.6[facility] HermannHEMATOLOGY 2019-01-22 05:01:0086.5[facility] XezfnnaUTYDWIHQNR1950-07-41 05:01:005.7[facility] UozumvmUYI7D0214-49-95 14:36:00 Test Item Value Reference Range Interpretation [...] 0.00-0.01 N code = ETOHU) Comprehensive Metabolic Fecgo9137-55-38 14:36:00 Test Item Value Reference Range Interpretation [...] ars ofage have not been validated by fredy e MDRD study and nyasia lee be interpretedwith caution.eGFR Re sult Interpretation: eGFR > or = 60 is in t he Normal RangeeGF R < 60 may mean kidney diseaseeGFR < 1 5 may mean kidney failureRange s recommended by the National Kid[employer] Foundation,http ://nkd ep.nih.gov Urinalysis Pxhelbjv9132-99-60 14:32:00 Test Item Value Reference Range Interpretation Comments Color (test code = COLOR) Yellow Yellow,Straw,Pl N yellow Clarity (test code = Clear Clear N CLAR) Specific [place] (test 1.024 1.001-1.035 N code = SPGR) [...] code = Few /HPF BACT) CBC with [id number] 14:21:00 Test Item Value Reference Range Interpretation [...] code = ALYMPH) 3.0 K/cumm 0.5-4.6 N Evans Abs (test code = AMONO) 0.5 K/cumm 0.0-1.2 N Eos Abs (test code = AEOS) 0.19 K/cumm 0.00-0.74 N Baso Abs (test code = ABASO) 0.1 K/cumm 0.00-0.21 N
[2021-10-29] MEDS ORDERED: ONDANSETRON 4 MG (ODT) TAB ONE (08:59)
[2021-10-29] MEDS ORDERED: ACETAMIN/CAFFEINE/BUTALB TAB PO ONE (08:59)
--- NOTE | 2021-10-29 09:03 | ER ---
Nurse's Notes [facility] Name: Tiffany Quinn Age: 51 yrs Sex: Female : 1970 Arrival Date: 10/29/2021 Time: 08:36 Bed 16 Private MD: Diagnosis: Headache Presentation: 10/29 08:48 Chief complaint: Patient states: pt c/o of migraine headache. Coronavirus screen: cb5 Client denies travel out of the [place] in the last 14 days. Ebola Screen: Patient negative for fever greater than or equal to 101.5 degrees Fahrenheit, and additional compatible Ebola Virus Disease symptoms Patient denies exposure to infectious person. Patient denies travel to an Ebola-affected area in the 21 days before illness onset. No symptoms or risks identified at this time. Initial Sepsis Screen: Does the patient meet any 2 criteria? No. Patient's initial sepsis screen is negative. Does the patient have a suspected source of infection? No. Patient's initial sepsis screen is negative. Risk Assessment: Do you want to hurt yourself or someone else? Patient reports no desire to harm self or others. Onset of symptoms. 08:48 Method Of Arrival: Ambulatory 5 08:48 Acuity: MANUEL 4 cb5 Triage Assessment: 08:51 Headache History: The patient has had previous headaches and this one is similar to cb5 previous episodes. General: Appears in no apparent distress. comfortable, Behavior is calm, cooperative, appropriate for age. Pain: Pain currently is 4 out of 10 on a pain scale. Pain began 2-3 days ago. Also complains of nausea. Pain: Complains of pain in head. Neuro: No deficits noted. Denies weakness blurred vision. 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 - Social history:: Smoking status: Patient denies any tobacco usage or history of. - Family history:: not pertinent. - Hospitalizations: : No recent hospitalization is reported. Screenin:54 Abuse screen: Denies threats or abuse. Denies injuries from another. Nutritional cb5 screening: No deficits noted. Tuberculosis screening: No symptoms or risk factors identified. Fall Risk None identified. Assessment: 09:02 General: Appears in no apparent distress. comfortable, Behavior is calm, cooperative. cb5 Pain: Pain currently is 4 out of 10 on a pain scale. Pain began 2-3 days ago. Neuro: No deficits noted. Cardiovascular: No deficits noted. Respiratory: No deficits noted. GI: No deficits noted. : No deficits noted. EENT: No deficits noted. Derm: No deficits noted. Musculoskeletal: No deficits noted. Injury Description: n/a. 09:35 Reassessment: Patient denies pain at this time. Patient states feeling better. Patient cb5 states symptoms have improved. Vital Signs: 08:48 BP 112 / 95; Pulse 80; Resp 16; Temp 98.4; Pulse Ox 100% ; cb5 09:27 BP 114 / 63; Pulse 70; Resp 16; Pulse Ox 100% ; Pain 1/10; cb5 [place] Coma Score: 08:59 Eye Response: spontaneous(4). Verbal Response: oriented(5). Motor Response: obeys rn commands(6). Total: 15. ED Course: 08:36 Patient arrived in ED. ds1 08:37 Manuel Ward MD is Attending Physician. rn 08:48 Windy Crespo, JIGNA is Primary Nurse. cb5 08:51 Triage completed. cb5 08:54 No apparent distress. cb5 08:54 Patient has correct armband on for positive identification. Allergy band placed. Bed in cb5 low position. Call light in reach. Side rails up X 1. Noise minimized. Lights dimmed. 08:54 No provider procedures requiring assistance completed. cb5 09:53 Arm band placed on. cb5 09:53 No I.V. access was ordered. cb5 Administered Medications: 09:00 Drug: Fioricet - Esgic 325 mg-40 mg-50 mg 1 tab-caps Route: PO; cb5 09:37 Follow up: Response: No adverse reaction; Pain is decreased cb5 09:00 Drug: Ondansetron 4 mg Route: PO; cb5 09:36 Follow up: Response: No adverse reaction; Pain is decreased cb5 09:38 Follow up: Response: No adverse reaction; Pain is decreased; Nausea is decreased cb5 Outcome: 09:02 Discharge ordered by . rn 09:53 Discharged to home ambulatory. cb5 09:53 Condition: stable 09:53 Discharge instructions given to patient. 09:54 Patient left the ED. cb5 Signatures: Neelima Rivera ds1 Manuel Ward MD MD rn Boman, Colleen, RN RN cb5
--- NOTE | 2021-10-29 09:03 | EDPHYS ---
Physician Documentation [facility] Name: Tiffany Quinn Age: 51 yrs Sex: Female : 1970 Arrival Date: 10/29/2021 Time: 08:36 Bed 16 Private MD: ED Physician Manuel Ward HPI: 10/29 08:59 This 51 yrs old Female presents to ER via Ambulatory with complaints of Headache, rn Nausea. 08:59 The patient complains of pain to the top of head. The patient describes the headache as rn aching. Onset: The symptoms/episode began/occurred 2 day(s) ago. Associated signs and symptoms: Pertinent positives: nausea, Pertinent negatives: altered mental status, fever, neck stiffness, rash, vision changes, vision loss, vertigo. Severity of symptoms: At its worst the pain was mild, "similar to past headaches". Headache History: The patient has had previous headaches and this one is similar to previous episodes. The symptoms are alleviated by nothing. the symptoms are aggravated by nothing. The patient has experienced similar episodes in the past, chronically. The patient has been recently seen by a physician:. 08:59 Patient reports 2 days of headache, this scared to take anything at home without being rn told is okay by her physician. States came for medication. No new symptoms compared to previous headache. No fever. No trauma.. 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 - Social history:: Smoking status: Patient denies any tobacco usage or history of. - Family history:: not pertinent. - Hospitalizations: : No recent hospitalization is reported. ROS: 08:59 Constitutional: Negative for fever, chills, and weight loss, Eyes: Negative for injury, rn pain, redness, and discharge, Neck: Negative for injury, pain, and swelling, Cardiovascular: Negative for chest pain, palpitations, and edema, Respiratory: Negative for shortness of breath, cough, wheezing, and pleuritic chest pain, Abdomen/GI: Negative for abdominal pain, vomiting, diarrhea, and constipation, Back: Negative for injury and pain, MS/Extremity: Negative for injury and deformity, Skin: Negative for injury, rash, and discoloration, Neuro: Negative for weakness, numbness, tingling, and seizure. Exam: 08:59 Constitutional: This is a well developed, well nourished patient who is awake, alert, rn and in no acute distress. Ambulatory to room without distress or requiring assistance Head/Face: Normocephalic, atraumatic. Eyes: Pupils equal round and reactive to light, extra-ocular motions intact. Lids and lashes normal. Conjunctiva and sclera are non-icteric and not injected. Cornea within normal limits. Periorbital areas with no swelling, redness, or edema. Neck: Trachea midline, no masses palpated, and no cervical lymphadenopathy. Supple, full range of motion without nuchal rigidity, or vertebral point tenderness. No Meningismus. Cardiovascular: Regular rate and rhythm. No pulse deficits. Respiratory: No increased work of breathing, no retractions or nasal flaring. Abdomen/GI: Soft, non-tender Skin: Warm, dry with normal turgor. Normal color with no rashes, no lesions, and no evidence of cellulitis. MS/ Extremity: Pulses equal, no cyanosis. Neurovascular intact. Full, normal range of motion. Equal circumference. Neuro: Awake and alert, GCS 15, oriented to person, place, time, and situation. Cranial nerves II-XII grossly intact. Motor strength 5/5 in all extremities. Sensory grossly intact. Cerebellar exam normal. Normal gait. Vital Signs: 08:48 BP 112 / 95; Pulse 80; Resp 16; Temp 98.4; Pulse Ox 100% ; cb5 09:27 BP 114 / 63; Pulse 70; Resp 16; Pulse Ox 100% ; Pain 1/10; cb5 [place] Coma Score: 08:59 Eye Response: spontaneous(4). Verbal Response: oriented(5). Motor Response: obeys rn commands(6). Total: 15. MDM: 08:37 Patient medically screened. rn 08:59 Differential diagnosis: migraine, tension headache, vasomotor headache. Data reviewed: rn vital signs, nurses notes, old medical records, and as a result, I will discharge patient. Counseling: I had a detailed discussion with the patient and/or guardian regarding: the historical points, exam findings, and any diagnostic results supporting the discharge/admit diagnosis, the need for outpatient follow up, to return to the emergency department if symptoms worsen or persist or if there are any questions or concerns that arise at home. Response to treatment: the patient's symptoms have mildly improved after treatment, and as a result, I will discharge patient. Special discussion: I discussed with the patient/guardian in detail that at this point there is no indication for admission to the hospital. It is understood, however, that if the symptoms persist or worsen the patient needs to return immediately for re-evaluation. 08:59 Special discussion: Based on the history and exam findings, there is no indication for rn further emergent testing or inpatient evaluation. I discussed with the patient/guardian the need to see the neurologist for further evaluation of the symptoms. Administered Medications: 09:00 Drug: Fioricet - Esgic 325 mg-40 mg-50 mg 1 tab-caps Route: PO; cb5 09:37 Follow up: Response: No adverse reaction; Pain is decreased cb5 09:00 Drug: Ondansetron 4 mg Route: PO; cb5 09:36 Follow up: Response: No adverse reaction; Pain is decreased cb5 09:38 Follow up: Response: No adverse reaction; Pain is decreased; Nausea is decreased cb5 Disposition Summary: 10/29/21 09:02 Discharge Ordered Location: Home rn Problem: chronic rn Symptoms: have improved rn Condition: Stable rn Diagnosis - Headache rn Followup: rn - With: Private Physician - When: As needed - Reason: Recheck today's complaints, Re-evaluation by your physician Discharge Instructions: - Discharge Summary Sheet rn - General Headache Without Cause rn - Migraine Headache rn Forms: - Medication Reconciliation Form rn - Thank You Letter rn - Antibiotic yarn carrier - Prescription Opioid Use rn Signatures: Manuel Ward MD MD rn Boman, Colleen, RN RN cb5
[2021-10-29 09:58] VITALS: TEMP 98.4; O2SAT 100
[2021-10-29 10:01] VITALS: BP 114/63
== END 2021-10-29 09:54 | disposition home or self-care (01) ==
LOC: ER 08:32
DX: R51.9 Headache, unspecified (principal)
CPT/HCPCS: 99283

== ENCOUNTER 2021-10-29 14:15 | Emergency (ER) | payer OTHER ==
--- OUTSIDE RECORDS SUMMARY | 2021-10-29 14:22 | XMS REPORT | Continuity of Care Document ---
:1970 Author Organization [facility] t Address [address] [place] [address] Care Team Providers Name Role Phone UNKNOWN [...] Admitting Clinician Unavailable Chente Admitting Clinician Unavailable [id number] Admitting Clinician Unavailable Payers Payer Name Policy Type Policy Number Effective Date Expiration Date Jovani rouse [facility] [place] - [id number] 2020 [employer] 00:00:00 (MEDICARE REPLACEMENT/ADVANT AGE - HMO) Problems Condition Condition Condition Status Onset Resolution Last Treating Co mments Source Name Details Category Date Date Treatment Clinician Date LOW PB Diagnosis Active 2019-01-22 Mem oria 01-21 01:52:00 l LOW PB 00:00: [place] 00 Active 01/21/2019 [facility] INFECTIOUS Diagnosis Active 2019-02-06 Memoria GASTROENTE 01-21 08:58:00 l RITIS AND 00:00: [place] COLITIS INFECTIOUS 00 GASTROENTE RITIS AND COLITIS Active 01/21/2019 [facility] Irregular Irregular Disease Active Uni vers menstrual menstrual 8-15 ity of cycle cycle 00:00: [address] Skin Skin Disease Active Univers lesion lesion 8-15 ity of 00:00: [address] Psychiatri Psychiatri Disease Active U nivers c disorder c disorder 8-15 it y of 00:00: [address] Well woman Well woman Disease Active U nivers exam with exam with 8-15 ity of routine routine 00:00: [place] gynecologi gynecologi 00 Me dical nicky exam nicky exam Branch INFECTIOUS Diagnosis Active 2019-02-06 Memoria GASTROENTE 08:58:00 l RITIS AND Yonis COLITIS, INFECTIOUS GASTROENTE RITIS AND COLITIS, Active [facility] Allergies, Adverse Reactions, Alerts Allergy Allergy Status Severity Reaction(s) Onset Inactive Treating Comm ents Source Name Type Date Date Clinician prometha DA Active [place] ANXIETY [facility] zine 1-01 Clear 00:00: Catherine 00 [facility] prometha DA Active U 2008- [facility] zine 7-04 Clear 00:00: Catherine 00 [facility] NO KNOWN Drug Active Univers ALLERGIE Class ity of S [facility] Phenerga Phenerga Active [place] [facility] winifred [place] Social History Social Habit Start Date Stop Date Quantity Comments Source History of Cigarette Smoker Universi ty of tobacco use [facility] Tobacco Comment 2-3 cigs a day Unive rsity of [facility] Exposure to Not sure University of SARS-CoV-2 [facility] (event) [place] Tobacco use and 2016-06-08 2016-06-08 Never used Universit y of exposure 00:00:00 00:00:00 [facility] Alcohol intake 2016-06-08 2016-06-08 0 /d University of 00:00:00 00:00:00 [facility] Sex Ass[birth year] At [birth year] Universit y of 00:00:00 00:00:00 [facility] Smoking Status Start Date Stop Date Source Social History 2019-01-22 05:00:12 [facility] Her urena Current some day smoker 2016-06-08 00:00:00 [facility] Medications Ordered Filled Start Stop Current Ordering Indication Dosage Frequency Signature Comments Components Source Medication Medication Date Date Medication? Clinician (SIG) Name Name cefTRIAXone 2020-10 No 1000mg 1,000 mg, Univers (ROCEPHIN) 11-10 IV ity of 1,000 mg in 08:30: 08:01 Piggyback, [place] NaCl 0.9% 00 :00 ONCE, 1 Medical (NS) 50 mL dose, On Bran h MINI-BAG Wed09/10/21 at 0230, Administer over 30 Minutes, 50 mL
Reas on for Anti-Infec tive: Documented Infection< br>Documen ngozi Infection Site: Urine<br&g t;Duration of Therapy: Other (see Comments) ondansetron 2020-10 No 4mg 4 mg, Slow Univers (ZOFRAN 11-10 IV Push, ity of (PF)) 06:45: 05:54 ONCE, 1 [place] injection 4 00 :00 dose, On Medi nicky mg Wed09/10/21 at 0045, RANDA NaCl 0.9% 2020-10 No 1000mL at 999 Uni vers (NS) bolus 11-10 mL/hr, ity of infusion 05:30: 05:30 1,000 mL, Joe as 1,000 mL 00 :00 IV Medical Infusion, Branch ONCE, 1 dose, On 09/09/21 at 2330, RANDA amoxicillin 2020-10 Yes [id number] 500mg Take 1 Univers 500 mg 11-10 capsule by ity of capsule 00:00: mouth 3 [place] 00 (three) Medical times [place] daily. ondansetron 2019-10 No 4mg 4 mg, Univ ers (ZOFRAN-ODT 12-01 Oral, ity of ) 15:15: 14:16 ONCE, 1 [place] disintegrat 00 :00 dose, Mon Med ical ing tablet 09/30/20 at [facility] 4 mg 0915, Routine ondansetron 2019-10 2020- No 4mg 4 mg, [facility] (ZOFRAN-ODT 2-07 12-07 Oral, ity of ) 14:30: 13:32 ONCE, 1 [place] disintegrat 00 :00 dose, Mon Med ical ing tablet 09/30/20 at [facility] 4 mg 0830, Routine ondansetron 2019-10 Yes [id number] 4mg Take 1 Univers 4 mg 2-07 tablet by ity of disintegrat 00:00: mouth [place] ing tablet 00 every 8 Medica l (eight) Branch hours as needed for Nausea and Vomiting (N/V). ondansetron 2019-10 Yes [id number] 4mg Take 1 Univers 4 mg 2-07 tablet by ity of disintegrat 00:00: mouth [place] ing tablet 00 every 8 Medica l (eight) Branch hours as needed for Nausea and Vomiting (N/V). ondansetron 2019-10 Yes [id number] 4mg Take 1 Univers 4 mg 2-07 tablet by ity of disintegrat 00:00: mouth [place] ing tablet 00 every 8 Medica l (eight) Branch hours as needed for Nausea and Vomiting (N/V). ondansetron 2019-10 Yes [id number] 4mg Take 1 Univers 4 mg 2-07 tablet by ity of disintegrat 00:00: mouth [place] ing tablet 00 every 8 Medica l (eight) Branch hours as needed for Nausea and Vomiting (N/V). ciprofloxac Yes 500 mg = 1 Memoria in 500 mg 4-04 tab, PO, l oral tablet 17:35: [id number], X [place] 00 4 day, # 8 tab, 0 [...] 4-04 tab, PO, l oral tablet 17:35: [id number], X Yonis 00 4 day, # 8 tab, 0 Refill(s) Ondansetron 2018- Yes 4 mg = 1 Me moria 4 MG Oral 4-04 tab, PO, l Tablet 17:35: Q6H, PRN [place] [Zofran] 00 Nausea/Vom iting, # 20 tab, [...] with feeding tube less than 14 [place] (Dobhoff, J-tube etc) and pediatric and patients. [...] with feeding tube less than 14 [place] (Dobhoff, J-tube etc) and pediatric and patients. Strattera 2019-0 No 0.5 mg/kg, Me moria 4-02 Route: PO, l 14:00: QAM, Dosing Weight 75, kg, Start date: 01/24/19 9:00:00 CDT, Duration: 30 day, Stop date: 02/22/19 9:00:00 CDT Strattera 2018-0 No 0.5 mg/kg, Me moria 4 Route: PO, l 14:00: QAM, Dosing Weight 75, kg, Start date: 01/24/19 9:00:00 CDT, Duration: 30 day, Stop date: 02/22/19 9:00:00 CDT lithium No Notes: Do Memor ia 4-02 not crush l 02:00: or chew. (Same as: Eskalith-C R) lithium 2018-0 No Notes: Do Memor ia 4-02 not crush l 02:00: or chew. (Same as: Eskalith-C R) Risperdal No Notes: Memori a - (Same as: l 22:00: Risperdal) era No 1 mg, Memoria 01-23 Route: PO, [...] ia - (Same As: l 18:00: KlonoPIN) [place] 00 Clonazepam No Notes: Memor ia 4- (Same As: l 18:00: KlonoPIN) Yonis 00 Flagyl No Notes: Memoria 4- (Same as: l 15:00: Flagyl) Yonis Take with food/ avoid alcohol Cipro No Notes: May Memori a - interfere l 15:00: w/enteral [place] 00 feedings - Take 1 hr before or 2 hrs after antacids, dairy pdt & minerals. On empty stomach. Flagyl No Notes: Memoria 4- (Same as: l 15:00: Flagyl) Yonis Take with food/ avoid alcohol Cipro No Notes: May Memori a - interfere l 15:00: w/enteral [place] 00 feedings - Take 1 hr before [...] PO, ONCE, l mEq oral 14:20: 0 [place] tablet, 00 Refill(s) extended release Metronidazo 2019 No 500 mg, Mem oria le 500 MG 4-01 PO, l Oral Tablet 14:20: [id number], 0 H [place] [Flagyl] 00 Refill(s) Ciprofloxac No 500 mg, Mem oria in 500 MG 4-01 PO, l Oral Tablet 14:20: [id number], 0 [place] [Cipro] 00 Refill(s) potassium 2019 Yes 40 mEq, Memor ia chloride 20 4-01 PO, ONCE, l mEq oral 14:20: 0 [place] tablet, 00 Refill(s) extended release Metronidazo No 500 mg, Mem oria le 500 MG 4-01 PO, l Oral Tablet 14:20: [id number], 0 H [place] [Flagyl] 00 Refill(s) Ciprofloxac No 500 mg, Mem oria in 500 MG 4-01 PO, l Oral Tablet 14:20: [id number], 0 [place] [Cipro] 00 Refill(s) Potassium No Notes: Memori a Chloride 4-01 (Same as: l 14:17: K-Dur 20) [place] 00 "Do Not Crush" Give with food and full glass of water For patients unable to swallow tablet, dissolve in one half glass of water. Allow about 2 minutes for the tablets to disintegra te. Stir before giving to prepare slurry and administer . Please exclude Patient s with feeding tube less than 14 [place] (Dobhoff, J-tube etc) and pediatric and patients. [...] with feeding tube less than 14 [place] (Dobhoff, J-tube etc) and pediatric and patients. Pepcid 2019 No Notes: Memoria 3-31 (Same as: l 22:00: Pepcid) [place] 00 Pepcid No Notes: Memoria 3-31 (Same [...] tab, PO, l Tablet 21:08: BID, 0 [place] [Risperdal] 00 Refill(s) Strattera Yes 0.5 mg/kg, [...] tab, PO, l Tablet 21:08: BID, 0 [place] [Risperdal] 00 Refill(s) Zosyn No Notes: Memoria [...] CDT Ondansetron 0 No Notes: Estrada doni 01-22 (Same as: l 09:47: Zofran) Yonis MEDICATION WASTE Product Size: 4 mg Product Wasted: ___ mg Glucagon No 1 mg, Memoria 01-22 Route: IM, l 09:47: Drug form: [place] 00 PDR/INJ, PRN, Dosing Weight 75.994, kg, [...] Memoria 3-31 (Same as: l 06:10: Zosyn) [place] 00 Dosing based on Piperacill in component [...] Memoria 3-31 (Same as: l 04:52: Zofran) [place] 00 MEDICATION WASTE Product Size: 4 mg [...] moria IV 3- 1,000 l 04:51: ml/hr, Infuse Over: 1 [...] tablet by ity of HYDROCHLORI 00:00: mouth [facility],) 4 mg 00 every 8 Medical tablet (eight) Branch hours. ondansetron 2017-0 Yes 4mg Take 1 Univ ers (ZOFRAN, 1-27 tablet by ity of HYDROCHLORI 00:00: mouth [place] DE,) 4 mg 00 every 8 Medical tablet (eight) Branch hours. ibuprofen 2016-0 Yes 200mg Take 200 Uni vers (ADVIL) 200 8-15 mg by ity of mg tablet 19:02: mouth [place] [address] every 6 Medical (six) Branch hours as needed. CLONAZEPAM 2016-0 Yes Take by Uni vers (KLONOPIN 8-15 mouth. ity of ORAL) 19:02: [address] Branch CITALOPRAM 2016-0 Yes Take by Uni vers HYDROBROMID 8-15 mouth. ity of E 19:02: [place] (CITALOPRAM 27 Medical ORAL) Branch ibuprofen 2016-0 Yes 200mg Take 200 Uni vers (ADVIL) 200 8-15 mg by ity of mg tablet 14:02: mouth [place] [address] every 6 Medical (six) Branch hours as needed. CLONAZEPAM 2016-0 Yes Take by Uni vers (KLONOPIN 8-15 mouth. ity of ORAL) 14:02: [address] Branch CITALOPRAM 2016-0 Yes Take by Uni vers HYDROBROMID 8-15 mouth. ity of E 14:02: [place] (CITALOPRAM 27 Medical ORAL) Branch ibuprofen 2016-0 Yes 200mg Take 200 Uni vers (ADVIL) 200 8-15 mg by ity of mg tablet 14:02: mouth [place] [address] every 6 Medical (six) Branch hours as needed. CLONAZEPAM 2016-0 Yes Take by Uni vers (KLONOPIN 8-15 mouth. ity of ORAL) 14:02: [address] Branch CITALOPRAM 2016-0 Yes Take by Uni vers HYDROBROMID 8-15 mouth. ity of E 14:02: [place] (CITALOPRAM 27 Medical ORAL) Branch ibuprofen 2016-0 Yes 200mg Take 200 Uni vers (ADVIL) 200 8-15 mg by ity of mg tablet 14:02: mouth [place] [address] every 6 Medical (six) Branch hours as [...] 00 Medical 50-325-40 Branch mg tablet dextroamphe 2016-0 Yes TK 1 T PO U nivers [...] ity of mg tablet 00:00: every 6 [place] 00 (six) Medical hours as Branch [...] ity of mg tablet 00:00: every 6 [place] 00 (six) Medical hours as Branch needed for Pain (scale 4-6). naproxen 2014-10 Yes 500mg Take 1 Tab Un parul (NAPROSYN) 1-16 by mouth 2 ity of 500 mg 00:00: (two) [place] tablet 00 times Medical daily with Branch meals. Vital Signs Vital Name Observation Time Observation Value Comments Source Systolic blood 2021-09-10 08:01:00 138 mm[Hg] [facility] Diastolic blood 2021-09-10 08:01:00 97 mm[Hg] [facility] Heart rate 2021-09-10 08:01:00 87 /min [facility] Respiratory rate 2021-09-10 08:01:00 20 /min [facility] Oxygen saturation in 2021-09-10 08:01:00 98 /min [facility] Arterial blood by [facility] Pulse oximetry [place] Body temperature 2021-09-10 04:28:51 37.17 Ruthann [facility] Body height 2021-09-10 04:26:00 154.9 cm [facility] [...] 99 /min University of Arterial blood by [place] [employer] nicky Pulse oximetry Branch Body weight 2021-09-09 [...] /min University of Arterial blood by [place] [employer] nicky Pulse oximetry Branch Body temperature 2020-09-30 [...] /min University of Arterial blood by [place] [employer] nicky Pulse oximetry Branch Body temperature 2020-09-30 13:26:00 37.22 Ruthann [facility] Respiratory rate 2020-09-30 13:26:00 16 /min [facility] Body weight 2020-09-30 13:26:00 72.576 kg [facility] BMI 2020-09-30 13:26:00 28.80 kg/m2 [facility] Temperature Oral (F) 2019-01-28 01:16:00 98.6 F [facility] Yonis Systolic (mm Hg) 2019-01-28 01:16:00 Estrada rial [place] Diastolic (mm Hg) 2019-01-28 01:16:00 Mem orial Yonis Heart Rate 2019-01-28 01:16:00 Memorial [place] Respitory Rate 2019-01-28 01:16:00 Memori al Yonis Systolic (mm Hg) 2019-01-27 20:42:00 Estrada rial [place] Diastolic (mm Hg) 2019-01-27 20:42:00 Mem orial [place] Heart Rate 2019-01-27 20:42:00 Memorial Y[place] Respitory Rate 2019-01-27 20:42:00 Memori al [place] Temperature Oral (F) 2019-01-27 20:42:00 98.5 F Memorial [place] Systolic (mm Hg) 2019-01-27 17:00:00 Estrada rial [place] Diastolic (mm Hg) 2019-01-27 17:00:00 Mem orial [place] Temperature Oral (F) 2019-01-27 17:00:00 98.5 F Memorial [place] Heart Rate 2019-01-27 17:00:00 [facility] [place] Respitory Rate 2019-01-27 [facility] [place] Height 2019-01-22 14:35:00 157.48 cm [facility] BMI Calculated 2019-01-22 14:35:00 Memori al [place] Weight 2019-01-22 14:35:00 [facility] 2019-01-22 04:34:00 [facility] Procedures Procedure Date / Time Performing Clinician Source Performed URINALYSIS 2021-09-10 06:03:00 Neena Bradford o f [facility] URINE DRUG (IMMUNOASSAY) 2021-09-10 06:03:00 Neena Bradford [facility] Medical [facility] SCREEN W/O REFLEX XR CHEST 1 VW 2021-09-10 04:57:30 Neena Bradford [facility] CREATINE KINASE 2021-09-10 04:39:00 Neena Bradford [facility] MAGNESIUM 2021-09-10 04:39:00 Sanchez Neena [facility] TROPONIN I 2021-09-10 04:39:00 Neena Bradford [facility] COMP. METABOLIC PANEL 2021-09-10 04:39:00 Neena Bradford [facility] ([id number]) [facility] CBC WITH DIFF 2021-09-10 04:39:00 Sanchez [facility] PROTHROMBIN TIME / INR 2021-09-10 04:39:00 Neena Bradford [facility] ACTIVATED PARTIAL 2021-09-10 04:39:00 [facility]-BNP 2021-09-10 04:39:00 Neena Bradford [facility] COVID-19 (ID NOW RAPID 2021-09-10 04:39:00 Neena Bradford [facility] TESTING) Medical Branch TROPONIN I 2021-09-09 21:49:00 Luanne Dumont [facility] COMP. METABOLIC PANEL 2021-09-09 21:49:00 Luanne Dumont [facility] ([id number]) Medical Branch LITHIUM 2021-09-09 21:49:00 Luanne Dumont [facility] CBC WITH DIFF 2021-09-09 21:49:00 Luanne Dumont [facility] CONSENT/REFUSAL FOR 2021-09-09 19:51:22 Doctor Unassigned, No Un [facility] DIAGNOSIS AND TREATMENT Name Medical Branch URINALYSIS 2020-09-30 13:27:00 Chuy Jackson [facility] ADC,CLC OR LCC ONLY - 2020-09-30 13:27:00 Chuy Jackson [facility] INFLUENZA A & B DIRECT Medical B ranch ANTIGEN COVID-19 (ID NOW RAPID 2020-09-30 13:27:00 [facility] TEST[facility]) Medical Branch Encounters Start End Encounter Admission Attending Care Care Encounter Source Date/Time Date/Time Type Type Clinicians Facility Department ID 2019-01-22 Inpatient E [facility] MED [id number] [facility] 04:39:00 2021-10-25 2021-10-25 Emergency EM OLIVER Reynaga [id number] [facility] 01:01:00 01:57:00 Lulú [id number] [facility] 2021-09-09 2021-09-10 [facility] [id number] Univers 22:20:00 03:02:00 Neena WALSH [id number] i ty of [place] 4.2.7.2.686 [facility] [id number] [address] 2021-09-09 2021-09-10 Emergency Lise BRADFORD [facility] ERT [id number] Univers 22:20:00 03:02:00 NEENA tubbs [facility] 2021-09-09 2021-09-10 Emergency [facility] [id number] Univers 22:20:00 03:02:00 NEENA tubbs [facility] 2021-09-09 2021-09-09 Emergency Julia [facility] [id number] Univers 14:07:00 17:35:00 Luanne WALSH [id number] i ty [facility] [id number] [id number] [address] 2021-09-09 2021-09-09 Orders Doctor BELKYS [id number] Univers 00:00:00 00:00:00 Only Unassigned, LANA [id number] ity of [facility] 4.2.7.2.686 Joe as [id number] [facility] 009 Branch 2020-09-30 2020-09-30 Emergency Singer [facility] [id number] Univers 07:22:00 08:18:00 Chuy Walsh [id number] i ty of [place] 4.2.7.2.686 [facility] [id number] [facility] 084 Branch 2020-09-30 2020-09-30 Emergency [facility] [id number] 07:22:00 08:18:00 Chuy Walsh [id number] [place] 4.2.7.2.686 [place] [id number] 2020-09-30 2020-09-30 Emergency X SINGER [facility] ERT [id number] Univers 07:22:00 07:22:00 CHUY tubbs [facility] 2020-04-05 2020-04-05 Outpatient Humaira-Mbayo VFP VFP [id number] [facility] 05:44:00 05:44:00 _A_AH [id number] Family Practic e 2020-04-05 2020-04-05 Outpatient Humaira-Mbayo VFP VFP [id number] [place] 05:44:00 05:44:00 _A_AH 74174 Family Practic e 2020-04-05 2020-04-05 Outpatient Humaira-Mbayo VFP VFP [id number] [facility] 05:44:00 05:44:00 _A_AH 37511 Family Practic e 2020-04-05 2020-04-05 Outpatient Humaira-Mbayo VFP VFP [id number] [place] 05:44:00 05:44:00 _A_AH 38143 Family Practic e 2020-03-04 2020-03-14 Inpatient 3 Chente Ronni [facility] PSY [id number] 15:38:00 15:25:00 [facility] 2019-12-13 2019-12-13 Outpatient Humaira-Mbayo VFP VFP [id number] [facility] 07:22:00 07:22:00 _A_AH 11283 Family Practic e 2019-01-22 2019-01-28 Inpatient [facility] [id number] Memoria 04:33:00 04:40:00 martin [place] 00 l [facility] 2018-02-21 2018-02-20 Inpatient E LOS [facility] MED [id number] 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 BASIC METABOLIC [id number] 01:47:00 Test Item Value Reference Range Interpretation [...] code = POCGLU) 110 MG/DL UA DIPSTICK [id number] 01:32:00 Test Item Value Reference Range Interpretation Comments UA GLUCOSE DIPSTIC POC NEGATIVE NEGATIVE (test code = GLUUP) UA BILIRUBIN DIPSTICK NEGATIVE NEGATIVE (test code = BILU) UA KETONE DIPSTICK POC 1+ NEGATIVE A (test code = KETUP) UA SPECIFIC GRAVITY (test 1.030 1.005-1.030 N code = SGU) UA BLOOD DIPSTIC POC NEGATIVE NEGATIVE Perform ed by (test code = BLUP) certified sueding and buffing machine operator at [facility] UA PH DIPSTIC POC (test 5 5.0-7.0 N code = PHUP) UA PROTEIN DIPSTICK POC NEGATIVE NEGATIVE (test code = DPROUP) UA UROBILINIOGEN QUAL NORMAL 0.2-1.0 (test code = UROQL) UA NITRITE DIPSTICK POC NEGATIVE Negative (test code = NITUP) UA LEUKOCYTE ESTERASE W 2+ NEGATIVE A REFLEX (test code = LEUUR) TROPONIN [id number] 05:26:53 Test Item Value Reference Interpretation Comments Range TROPONIN I (test 0.003 ng/mL See_Comment [Automated code = 4011253454) message] The system which generated this result [...] biotin. Lab Interpretation Normal (test code = 67565-2) [id number] 05:24:16 Test Item Value Reference Range Interpretation Comments NT-proBNP (test code 35 pg/mL See_Comment [Autom ated = 6411887222) message] The system which generated this result transmitted reference range : <=125. The reference range was not used to interpret this result as normal/abnormal . PERRY (test code = PERRY) Biotin has been reported to cause a negative bias, interpret results relative to patient's use of biotin. Lab Interpretation Normal (test code = 21593-4) [facility] 05:16:51 Test Item Value Reference Range Interpretation Comments MAGNESIUM (test code = 2066810913) 1.8 mg/dL 1.7-2.4 Lab Interpretation (test code = Normal 12031-4) [facility]. METABOLIC PANEL ([id number])2021-09-10 05:16:31 Test Item Value Reference Range Interpretation Comments NA (test code = 139 mmol/L 135-145 2822292333) K (test code = 4.0 mmol/L 3.5-5.0 8535904607) CL (test code = 108 mmol/L 98-108 4287605185) CO2 TOTAL (test code 25 mmol/L 23-31 = 6865765902) AGAP (test code = 2-16 9950719109) BUN (test code = 14 mg/dL 7-23 6470603162) GLUCOSE (test code = 88 mg/dL 70-110 7777959779) CREATININE (test code 0.89 mg/dL 0.50-1.04 = 1608983220) TOTAL BILI (test code 0.5 mg/dL 0.1-1.1 = 0585008701) CALCIUM (test code = 10.3 mg/dL 8.6-10.6 5652491820) T PROTEIN (test code 6.9 g/dL 6.3-8.2 = 5101965881) ALBUMIN (test code = 4.3 g/dL 3.5-5.0 3299315380) ALK PHOS (test code = 72 U/L 34-122 6222001828) ALTv (test code = 17 U/L 5-35 1742-6) AST(SGOT) (test code 29 U/L 13-40 = 9034787307) eGFR (test code = mL/min/1.73m2 2179444158) PERRY (test code = PERRY) Association of [...] or urine or abnormalities in imaging tests). [facility] [id number] 05:16:16 Test Item Value Reference Range Interpretation Comments CK (test code = 5541689917) 267 U/L 33-194 H Lab Interpretation (test code = Abnormal 51296-9) [facility] THRMPLAS [id number] 05:05:32 Test Item Value Reference Range Interpretation Comments APTT Patient (test See_Comment [Automat ed code = 3173-2) message] The system which generated this result transmitted reference range : 23 - 38 Seconds . The reference range was not used to interpr et this result as normal/abnormal . PERRY (test code = PERRY) The [facility] patient population mean normal value for aPTT is 30 seconds. Lab Interpretation Normal (test code = 89324-8) [facility] / [id number] 05:03:30 Test Item Value Reference Range Interpretation [...] tions. Lab Interpretation (test Normal code = 24836-9) [facility] WITH [id number] 04:57:13 Test Item Value Reference Range Interpretation Comments WBC (test code = See_Comment [Automated 2390-2) message] The sy stem which generated this [...] RDW-SD (test code = 41.2 fL 39.0-49.9 68035-3) RDW-CV (test code = 13.0 % 12.0-15.5 788-0) PLT (test code = See_Comment H [Automated 777-3) message] The sy stem which generated this result transmitted reference range : 166 - 358 10*3/ ?L. The reference r katie was not used to interpret this result as normal/abnormal . MPV (test code = 9.6 fL 9.5-12.9 28044-7) NRBC/100 WBC (test See_Comment [Automat ed code = 0245768245) message] The system which generated this result transmitted reference range : 0.0 - 10.0 /100 WBCs. The refer ence range was not u sed to interpret th is result as normal/abnormal . NRBC x10^3 (test code <0.01 See_Comment [Auto mated = 2666949360) message] The s [employer]el[employer] which generated this result transmitted reference range : 10*3/?L. The reference range was not used to interpret this result as normal/abnormal . GRAN MAT (NEUT) % 61.9 % (test code = 770-8) IMM GRAN % (test code 0.30 % = 7618166305) LYMPH % (test code = 26.0 % 736-9) MONO % (test code = 9.5 % 5905-5) EOS % (test code = 1.6 % 713-8) BASO % (test code = 0.7 % 706-2) GRAN MAT x10^3(ANC) 5.91 10*3/uL 1.88-7.09 (test code = 3179905155) IMM GRAN x10^3 (test 0.03 10*3/uL 0.00-0.06 code = 9127186598) LYMPH x10^3 (test code 2.48 10*3/uL 1.32-3.29 = 731-0) MONO x10^3 (test code 0.91 10*3/uL 0.33-0.92 = 742-7) EOS x10^3 (test code = 0.15 10*3/uL 0.03-0.39 711-2) BASO x10^3 (test code 0.07 10*3/uL 0.01-0.07 = 704-7) Lab Interpretation Abnormal (test code = 18154-3) [facility] C3100-04-69 22:24:55 Test Item Value Reference Interpretation Comments Range TROPONIN I (test 0.002 ng/mL See_Comment [Automated code = 4827327016) message] The system which generated this result [...] biotin. Lab Interpretation Normal (test code = 58223-8) [facility] Test Item Value Reference Range Interpretation Comments Brenas (test code = <0.2 0.6-1.2 L 2822243787) PERRY (test code = PERRY) Toxic Range: ? Greater than 1.2 mmol/L Lab Interpretation (test Abnormal code = 67795-1) [facility] (90406)2021-09-09 22:13:54 Test Item Value Reference Range Interpretation Comments NA (test code = 139 mmol/L 135-145 5689971217) K (test code = 4.0 mmol/L 3.5-5.0 3938854385) CL (test code = 105 mmol/L 98-108 5414651548) CO2 TOTAL (test code 26 mmol/L 23-31 = 5171049557) AGAP (test code = 2-16 2828060808) BUN (test code = 11 mg/dL 7-23 9555696304) GLUCOSE (test code = 109 mg/dL 70-110 0253510081) CREATININE (test code 0.71 mg/dL 0.50-1.04 = 9904458855) TOTAL BILI (test code 0.6 mg/dL 0.1-1.1 = 0637482923) CALCIUM (test code = 10.4 mg/dL 8.6-10.6 1904513186) T PROTEIN (test code 7.6 g/dL 6.3-8.2 = 4692601449) ALBUMIN (test code = 4.7 g/dL 3.5-5.0 5310500008) ALK PHOS (test code = 78 U/L 34-122 4411743844) ALTv (test code = 19 U/L 5-35 1742-6) AST(SGOT) (test code 28 U/L 13-40 = 3191947487) eGFR (test code = mL/min/1.73m2 8587704640) PERRY (test code = PERRY) Association of [...] in imaging tests). [facility] WITH NXPO9339-60-01 22:03:32 Test Item Value Reference Range Interpretation Comments WBC (test code = See_Comment [Automated 3405-2) message] The sy stem which generated this result transmitted reference range : 4.30 - 11.10 10*3/?L. The reference range was not used to interpret this result as normal/abnormal . RBC (test code = See_Comment [Automated 430-8) message] The sy stem which generated this [...] RDW-SD (test code = 40.2 fL 39.0-49.9 42061-3) RDW-CV (test code = 12.9 % 12.0-15.5 788-0) PLT (test code = See_Comment H [Automated 777-3) message] The sy stem which generated this result transmitted reference range : 166 - 358 10*3/ ?L. The reference r katie was not used to interpret this result as normal/abnormal . MPV (test code = 9.4 fL 9.5-12.9 L 67531-1) NRBC/100 WBC (test See_Comment [Automat ed code = 7084788209) message] The system which generated this result transmitted reference range : 0.0 - 10.0 /100 WBCs. The refer ence range was not u sed to interpret th is result as normal/abnormal . NRBC x10^3 (test code <0.01 See_Comment [Auto mated = 3402240788) message] The s ystem which generated this result transmitted reference range : 10*3/?L. The reference range was not used to interpret this result as normal/abnormal . GRAN MAT (NEUT) % 67.1 % (test code = 770-8) IMM GRAN % (test code 1.00 % = 3686161473) LYMPH % (test code = 21.4 % 736-9) MONO % (test code = 7.9 % 5905-5) EOS % (test code = 1.8 % 713-8) BASO % (test code = 0.8 % 706-2) GRAN MAT x10^3(ANC) 7.35 10*3/uL 1.88-7.09 H (test code = 2211900266) IMM GRAN x10^3 (test 0.11 10*3/uL 0.00-0.06 H code = 1424826673) LYMPH x10^3 (test code 2.34 10*3/uL 1.32-3.29 = 731-0) MONO x10^3 (test code 0.86 10*3/uL 0.33-0.92 = 742-7) EOS x10^3 (test code = 0.20 10*3/uL 0.03-0.39 711-2) BASO x10^3 (test code 0.09 10*3/uL 0.01-0.07 H = 704-7) Lab Interpretation Abnormal (test code = 59444-2) [facility] - INFLUENZA A & B DIRECT WKUTHYB7061-13-28 14:04:00 Test Item Value Reference Range Interpretation Comments Influenza A (test code = 93975-6) Negative Negative Influenza B (test code = 82297-5) Negative Negative Lab Interpretation (test code = Normal 77146-2) [facility] NOW RAPID TESTING)2020-09-30 14:03:00 Test Item Value Reference Range Interpretation Comments SARS-CoV-2 Rapid ID NOW Not Detected Not Detected (test code = 31483-0) PERRY (test code = PERRY) ID NOW COVID-19 Assay is an isothermal nucleic acid amplification test intended for the qualitative detection of nucleic acid from SARS-CoV-2 viral RNA in nasopharyngeal (RIGGER CHIEF) specimens. It is used under Emergency Use [...] indicated. Lab Interpretation Normal (test code = 49732-5) [facility] 13:55:00 Test Item Value Reference Range Interpretation Comments APPEARANCE (test code = Hazy Clear A 1850889782) COLOR (test code = Yellow Yellow 5529613769) PH (test code = 4.8-8.0 5846131974) SP GRAVITY (test code = 1.003-1.030 9404142004) GLU U QUAL (test code = Normal Normal 4248033340) BLOOD (test code = Negative Negative 3500594636) KETONES (test code = 5 mg/dL Negative A 7981904129) PROTEIN (test code = Negative Negative 2887-8) UROBILIN (test code = 2.0 mg/dL Normal A 3425449686) BILIRUBIN (test code = Negative Negative 7003628620) NITRITE (test code = Negative Negative 7280047442) LEUK ROZINA (test code = 25/uL Negative A 7506254458) RBC/HPF (test code = See_Comment [Autom ated message] 7059639394) The system Pix[employer] generated this result transmit ngozi reference range : 0 - 3 HPF. The refe rence range was not u sed to interpret th is result as normal/abnormal . WBC/HPF (test code = See_Comment [Autom ated message] 6935607623) The system [employer] generated this result transmit ngozi reference range : 0 - 5 HPF. The refe rence range was not u sed to interpret th is result as normal/abnormal . BACTERIA (test code = Few Negative A 6137189413) MUCOUS (test code = Slight Negative LPF A 3967677853) SQ EPITH (test code = HPF 6391603865) Lab Interpretation (test Abnormal code = 07665-8) [facility] Center[facility]PR Sqpaiqyuzhh8405-70-17 16:42:24 Test Item Value Reference Range Interpretation [...] = 10-24-2020 N Expiration Dt) Thyroid Stimulating Fxlhydb1124-50-13 08:35:16 Test Item Value Reference Range Interpretation Comments TSH (test code = TSH) 1.170 mIU/mL 0.270-4.200 Lipid Obezq6994-75-04 08:21:19 Test Item Value Reference Range Interpretation Comments Cholesterol Total 254 mg/dL 0-200 H RISK OF HE ART (test code = DISEASEPublishe d by Cholesterol Total) [employer] Cathie lyte Optimal Borderl ine [...] calculation is LDL/HDL Ratio=L DL Calc/HDL Chol DDKKJRNVMDTM9834-33-42 08:24:008.6[facility] BgohsaeDJTZNNZRJBHJ5296-44-89 08:24:95581Gplzdhdu QpwipllPCAVCSAVXJNJ4623-83-10 08:24:0027[facility] [place] WYRPLIYJZLSJ1044-38-30 08:24:07897Hbedyusg AwsvfhxLUXSRXKECXJY4822-71-89 08:24:003.6[facility] JaoksrqAOLLAHWVGIRN3601-23-44 08:24:000.70[facility] DRNYCZTWJNAS3542-56-55 08:24:008.4[facility] PdobwxyBPTOPLGEXKXL2409-56-48 08:24:04238Tlpxkyfb ChrytrmCGWVYTVTBPAQ9767-73-51 08:24:0086[facility] [place] JMTRCBVQAJNF1904-28-73 08:24:006[facility] QkajyjdMCQCJJTXGO2370-88-90 08:24:00 11.6[facility] BfbropuWGEHTDHPJE8247-81-73 08:24:003.78[facility]annHEMATOLOGY 2019-01-26 08:24:0013.3[facility] GexcuxbYXORVDQOFD9424-07-00 08:24:0034.0[facility] WikmibrODGKVMYQQA7691-35-27 08:24:006.3[facility] NxmbshjYYRTKEEDPM1009-15-68 08:24:00 Test Item Value Reference Range Interpretation Comments MCH (test code = MCH) 30.7 pg 27.0-31.0 [facility] BrhpvkvGAHIZEGJFL0771-83-36 08:24:0090.3[facility] HermannHEMATOLOGY 2019-01-26 08:24:0034.2[facility] RjiqcpkBXPVMMWPFK1099-29-27 08:24:17806Ywcekonz BsisrusCKCKCFQNWO4921-80-70 08:24:007.5[facility] OyaswfwITJNEFYPJLOL5450-94-59 08:24:008.6[facility] FkhrzmqDZUFAZWFOXCH0202-89-96 08:24:15886Jmcfpyrt [place] MLAANDGXCFLW4950-46-48 08:24:0027[facility] IjeezbjREMYKQXFPIYJ1617-49-45 08:24:00 139[facility] FrnxevfNLMKQNZTUTVX1329-19-25 08:24:003.6[facility] ICAZKSQYMRBE5182-16-54 08:24:000.70[facility] TcqqpbbMOIRLDSRGRFK0336-79-13 08:24:008.4[facility] NwuwhloUYQDKGTHAVTZ9455-47-97 08:24:87360Rbsoslin [place] IECLWWMWNGKY7317-78-89 08:24:0086[facility] PrgdgrdUPHTJNJMHQKC0978-85-05 08:24:00 6[facility] HwfdaobCTOTRMUTFR6418-50-81 08:24:0011.6[facility]annHEMATOLOGY 2019-01-26 08:24:003.78[facility] MgavzaiALFCDUUSEZ2837-31-85 08:24:0013.3[facility] WjvbnxgAQOZUKEEOU1697-09-60 08:24:0034.0[facility] TlkuoorREXSHODJQL5223-68-05 08:24:006.3[facility] MpntlleUQBJFXQPSP8748-00-21 08:24:00 Test Item Value Reference Range Interpretation Comments MCH (test code = MCH) 30.7 pg 27.0-31.0 [facility] AvgrtbaTNIIRAWJTQ1827-71-89 08:24:0090.3[facility]annHEMATOLOGY 2019-01-26 08:24:0034.2[facility] NkwnpcmMHCGFTMVSY6038-27-31 08:24:90353Vtztegzy MmpfwxmOUSRXZLRNE0668-83-91 08:24:007.5[facility] HermannCHEM WWOEM9427-02-96 09:14:58011Jecxndje HermannCHEM UWASI0700-86-48 09:14:008.5[facility]annCHEM HZUAD3828-68-31 09:14:0013.3[facility]annCHEM ZUKIR2761-34-25 09:14:0024 [facility]annCHEM MHTRD2823-38-34 09:14:20375Nopygfga HermannCHEM PANEL 2019-01-25 09:14:0081[facility]annCHEM RENVO6112-03-43 09:14:002[facility]annCHEM QIKVF2823-51-81 09:14:003.3[facility]annCHEM AWKRM6082-73-10 09:14:000.60[facility]annCHEM UFMLZ2003-65-68 09:14:86018Azbajfxg [facility]annCHEM QEREE7883-10-70 09:14:35330Njfspcxy [facility]annCHE[facility] YMHBQ1294-39-50 09:14:008.5 [facility]annCHE[facility] VDARR2398-34-09 09:14:0013.3[facility]annCHEM PANEL 2019-01-25 09:14:0024[facility]annCHEM BQLUX6670-57-59 09:14:29700Pypvekwe HermannCHEM UPCOE8189-33-37 09:14:0081[facility]annCHEM CLXRG1306-11-60 09:14:002[facility]annCHEM JIRFO9940-25-75 09:14:003.3[facility]annCHEM ZXIUD9101-37-47 09:14:000.60[facility]annCHEM GJRYU0213-25-68 09:14:98059 [facility]annMOLECULAR JVOCQXJDIZ2966-53-52 16:22:00Negative (01/23/19 11:22 AM)[facility]annMOLECULAR OITIQNPHEX3697-14-49 16:22:00Negative (01/23/19 11:22 AM)[facility]annCHEM KAWTS5057-87-21 15:42:002.76[facility]annCHEM PANEL 2019-01-23 15:42:002.76[facility]annCHEM EHKHG2640-27-77 12:32:000.9[facility]annCHEM GBGGM5762-92-13 12:32:000.9[facility]annCHEM SYASL0293-67-79 10:50:002.0[facility]annCHEM IOPSF2123-49-92 10:50:63421Mmwehinh HermannCHEM NFUZE1335-30-92 10:50:0023[facility]annCHEM FYMYQ8028-53-32 10:50:01587 [facility]annCHE[facility] MNIUI2611-00-33 10:50:003.1[facility]annCHEM PANEL 2019-01-23 10:50:49252Jxdjksyc HermannCHEM YDPEJ2265-71-33 10:50:005[facility]annCHEM TFHEE9398-26-70 10:50:000.50[facility]annCHEM SOQAY9197-90-66 10:50:007.8[facility]annCHEM GKBFI9774-80-64 10:50:0083[facility]annCHEM ZRGEF1069-82-32 10:50:0010.1[facility] MoqrbzoXTBDUWVZDE9188-13-09 10:50:000.2 [facility] TxtjsspCWNJUKWPPX5271-27-79 10:50:000.8[facility]annHEMATOLOGY 2019-01-23 10:50:005.5[facility] ZfrwwyuQWUYPZTYYQ5391-70-55 10:50:002.2[facility] MfedkkdAWYBCYWHGW5087-47-10 10:50:000.1[facility] FvtqvmnRDZREHUZTK7168-68-07 10:50:0063.6[facility] IddirydPSGVAGXDCG7788-30-76 10:50:008.9[facility] [place] XBPWSRLFEX2024-26-07 10:50:002.3[facility] BkorvcwEEYVKBCMFU1282-94-24 10:50:00 Normal (01/23/19 5:50 AM)[facility] XxgqeeoWJNQLYZPFA7987-77-89 10:50:00Normal (01/23/19 5:50 AM)[facility] SyobtzvXRYKXNUCST1364-03-96 10:50:0025.1[facility] MioevjwLSKGNKUHQL2638-28-42 10:50:0013.1[facility] ZioagxcPIDKGWCFGP1827-48-95 10:50:04832Ahyiilmf UyfvnsaOIYPNXCQXM5991-81-65 10:50:007.7[facility] DLZJHIXJAW8421-08-68 10:50:008.6[facility] MljopcoASVRMMFYWA0553-62-10 10:50:00 10.0[facility] RzwuwmsXDBKRHOKAI1656-50-91 10:50:0034.6[facility]annHEMATOLOGY 2019-01-23 10:50:0028.7[facility] YgcvbntMCNHFDJLSM1906-89-64 10:50:0087.8[facility] QostmamXNMCBLVMUJ3583-75-41 10:50:00 Test Item Value Reference Range Interpretation Comments MCH (test code = MCH) 30.4 pg 27.0-31.0 [facility] YcyvakaIWBEGFCQUU2479-91-92 10:50:003.27[facility]annCHEM PANEL 2019-01-23 10:50:002.0[facility]annCHEM LFHUM0303-49-21 10:50:75622Vzzmshpj HermannCHEM DWQJI0141-86-63 10:50:0023[facility]annCHEM NJZMC0183-00-13 10:50:46004Rkuqtwzx [facility]annCHEM YBHJY7084-29-83 10:50:003.1[facility]annCHEM ELZCQ5675-68-75 10:50:35325Pijemsta HermannCHEM PINHT2668-97-23 10:50:005 [facility]annCHEM KUBCN1765-98-36 10:50:000.50[facility]annCHEM PANEL 2019-01-23 10:50:007.8[facility] HermannCHEM BASEN6426-64-83 10:50:0083[facility]annCHEM IQZEV2909-21-27 10:50:0010.1[facility] AyqolnpSIOYEGJZOA1681-75-42 10:50:000.2[facility] LhzhtabDPNSVWLERO2043-43-19 10:50:000.8[facility] ERRWDGRIHB4427-36-28 10:50:005.5[facility] XfoksjgYZZUUXLTUA3782-73-22 10:50:002.2 [facility] MqjfwfmTWOAJGRGXX1055-70-08 10:50:000.1[facility]annHEMATOLOGY 2019-01-23 10:50:0063.6[facility] KzddezfLYYITXFFLX3760-76-43 10:50:008.9[facility] LzxycmiBXBRMUFJEE8648-78-89 10:50:002.3[facility] MkjanlzIWUPPBVZXX7688-39-82 10:50:00Normal (01/23/19 5:50 AM)[facility] TpzwsgtEENRQYMZSO4660-57-28 10:50:00 Normal (01/23/19 5:50 AM)[facility] EcxkzhqFEEJCIHWIF3787-12-97 10:50:0025.1[facility] InnpiupSASGWJFZGR9349-64-78 10:50:0013.1[facility] YtyviiaZZCZXIOVIA3746-98-17 10:50:74997Raezrjgl CadvhmsBOXXDXIQTJ6524-72-57 10:50:007.7[facility] QZWRSDKHKT9310-26-85 10:50:008.6[facility] HazbnptQLLREJNAPC6096-57-95 10:50:00 10.0[facility] KkzcanlNCDBNMYXUH0129-61-45 10:50:0034.6[facility]annHEMATOLOGY 2019-01-23 10:50:0028.7[facility] HfyyxqcSEQJDDMZVP8220-24-90 10:50:0087.8[facility] TauorywXQZJAQLWAZ4455-20-40 10:50:00 Test Item Value Reference Range Interpretation Comments MCH (test code = MCH) 30.4 pg 27.0-31.0 [facility] RfzdsnqRPEBRYLCHJ3575-42-20 10:50:003.27[facility]annCHEM PANEL 2019-01-22 11:32:002.4[facility] HermannCHEM XVVXI0343-40-42 11:32:002.4[facility] HermannCHEM FKGHK0351-02-39 09:04:003.0[facility]annCHEM YNNJZ1313-50-18 09:04:003.0[facility]annURINE AND IBOTV8766-97-50 07:14:00 Test Item Value Reference Range Interpretation Comments UA Spec Grav (test code = UA Spec 1.014 1 Grav) [facility] XRHNX6911-21-95 07:14:00 Test Item Value Reference Range Interpretation Comments UA pH (test code = UA pH) 6.0 1 5.0-8.0 [facility] BXUJK9051-35-71 07:14:00Negative (01/22/19 2:14 AM) [facility] QBWRE1352-47-82 07:14:00Negative *NA*(01/22/19 2:14 AM) [facility] MHOVE9883-79-42 07:14:00Negative *NA*(01/22/19 2:14 AM) [facility] PUGPN2567-26-40 07:14:00Negative *NA*(01/22/19 2:14 AM) [facility] URUTJ3426-70-99 07:14:00Negative (01/22/19 2:14 AM) [facility] JAPTB0573-42-08 07:14:00Negative (01/22/19 2:14 AM) [facility] DFLSH2110-86-41 07:14:00Negative (01/22/19 2:14 AM) [facility] OIIEN9510-70-12 07:14:00<1[facility] XDWPQ6167-01-13 07:14:0025[facility] JQIPV6286-59-02 07:14:002 [facility] CXDCH1256-98-94 07:14:00Light Yellow *NA*(01/22/19 2:14 AM)[facility] BKXLI0003-65-78 07:14:00Clear (01/22/19 2:14 AM) [facility] DHJBU8213-80-26 07:14:00 Test Item Value Reference Range Interpretation Comments UA Spec Grav (test code = UA Spec 1.014 1 Grav) [facility] CCKWI2522-95-03 07:14:00 Test Item Value Reference Range Interpretation Comments UA pH (test code = UA pH) 6.0 1 5.0-8.0 [facility] ORIFC1307-92-56 07:14:00Negative (01/22/19 2:14 AM) [facility] YKUJG8432-77-61 07:14:00Negative *NA*(01/22/19 2:14 AM) [facility] CDMXO5536-56-52 07:14:00Negative *NA*(01/22/19 2:14 AM) [facility] UHLVZ8237-73-20 07:14:00Negative *NA*(01/22/19 2:14 AM) [facility] OOORJ4576-09-63 07:14:00Negative (01/22/19 2:14 AM) [facility] FRMPU0780-70-84 07:14:00Negative (01/22/19 2:14 AM) [facility] FBFZG5820-11-78 07:14:00Negative (01/22/19 2:14 AM) [facility] HBGTN3472-88-42 07:14:00<1[facility] MBSBN7741-95-93 07:14:0025[facility] AQKJM2909-79-00 07:14:002 [facility] WQRVO6528-12-28 07:14:00Light Yellow *NA*(01/22/19 2:14 AM)[facility] SEHTI0467-20-23 07:14:00Clear (01/22/19 2:14 AM) [facility] FfrkfjtAWEQA3883-86-80 05:16:000.90[facility] PikpqvnVCKAC8176-19-48 05:16:000.90[facility] FzejdrxBXHZILXAVD8559-97-87 05:01:000.7[facility] [place] ERLFJPGYFB3772-54-15 05:01:000.0[facility] CjifvguQZKMNGLZCT3007-16-19 05:01:000.0 [facility] JtssggoJCLZQPGBUW6033-13-36 05:01:000.9[facility]annHEMATOLOGY 2019-01-22 05:01:008.6[facility] HgfuiviTQKZVYYBKO2775-31-02 05:01:000.6[facility] UivpfhpSSINJMSETC2657-28-52 05:01:0086.5[facility] LnwnqnqYTJAWQLHKY0675-83-51 05:01:005.7[facility] SrdxgruQCQBEYXYRK1609-58-82 05:01:006.9[facility] BHWDYUWEPR9571-05-85 05:01:009.9[facility] ZvflhbeYFMSSKDWTO8164-28-02 05:01:00 32.8[facility] SnaxblgJXAVCQDORO7661-94-94 05:01:0013.6[facility]annHEMATOLOGY 2019-01-22 05:01:45252Kbugzakw JaedinpYZHHAFHEJD6148-18-52 05:01:007.3[facility] QghnyyaUHKACZNNYA6673-76-01 05:01:0014.0[facility] YwzpfyaWARPIIORWX2137-51-32 05:01:004.85[facility] SxqeepfYVMRDXVCVN7825-94-85 05:01:0042.7[facility] [place] PJEPRINIYU0758-62-95 05:01:00 Test Item Value Reference Range Interpretation Comments MCH (test code = MCH) 29.0 pg 27.0-31.0 [facility] FtddqceZSRTMLJLEV4449-72-32 05:01:0088.2[facility]annHEMATOLOGY 2019-01-22 05:01:00 Test Item Value Reference Range Interpretation Comments INR (test code = INR) 0.96 1 0.85-1.17 [facility]bobUBRZUSFBLO0848-08-67 05:01:00 Test Item Value Reference Range Interpretation Comments PT (test code = PT) 12.6 s 12.0-14.7 [facility]fsgxhkRBKSLDJRWM4679-67-41 05:01:00 Test Item Value Reference Range Interpretation Comments PTT (test code = PTT) 25.9 s 22.9-35.8 [facility] HermannBLOOD BANK UEVAAYR5779-92-25 05:01:00Negative (01/22/19 12:01 AM) [facility]annCARDIAC IDGBYHJ0287-97-19 05:01:00<0.02[facility] [place] CARDIAC MMWZTWE2353-74-20 05:01:0049[facility]annCHEM QXGDX8059-38-11 05:01:000.6[facility]annCHEM PTCTK7692-19-94 05:01:92726Xydzaqwg [facility]annCHEM AWMBM0966-51-61 05:01:004.0[facility]annCHEM PGOFF0068-93-81 05:01:0017 [facility]annCHE[facility] PJKTX6425-21-76 05:01:0025[facility]annCHEM PANEL 2019-01-22 05:01:008.1[facility]annCHEM ZJDSS6737-04-90 05:01:00 Test Item Value Reference Range Interpretation Comments B/C Ratio (test code = B/C Ratio) 20 1 6-25 [facility]annCHE[facility] QAEBB2535-78-57 05:01:00 Test Item Value Reference Range Interpretation Comments A/G Ratio (test code = A/G Ratio) 1.0 1 0.7-1.6 [facility]annCHEM GWDYJ1705-89-03 05:01:004.1[facility]annCHEM PANEL 2019-01-22 05:01:006.90[facility] XnfdgqwGVYWXGZNSKIRK5337-94-39 05:01:00Negative *NA*(01/22/19 12:01 AM)[facility] MamswbhKFKWRSCTAQ0458-06-86 05:01:000.1[facility] YzzgmvnXWTIQXIMYR3791-90-91 05:01:000.7[facility] GwxenrzNZASFVTIJD1841-47-66 05:01:000.0[facility] LctoegzZWPFBKOAPX9137-50-42 05:01:000.0[facility] TRQASEAFQE6164-54-96 05:01:000.9[facility] WsmtyzaKMJTQWNGJK1068-73-36 05:01:008.6 [facility] LpadbgnUXPQCDSBYX8222-82-44 05:01:000.6[facility]annHEMATOLOGY 2019-01-22 05:01:0086.5[facility] BdadksqMLHBENLTGF2880-93-99 05:01:005.7[facility] DjkndvhXHHBTHXEAT0746-82-03 05:01:006.9[facility] NezbjhxYITNGHZNJE3637-96-43 05:01:009.9[facility] QivpfeaYOCNMGEEFN6822-24-00 05:01:0032.8[facility] ZASXIDJMGD7127-20-75 05:01:0013.6[facility] XpivspaJWJIBVIQFM4836-62-94 05:01:00 443[facility] OxqirrpIKFZQZCQZI1483-78-64 05:01:007.3[facility]annHEMATOLOGY 2019-01-22 05:01:0014.0[facility] IjzumfvVNKQCCXMUJ9226-22-23 05:01:004.85[facility] QtqrlvyIXTSHPRCIO9135-44-64 05:01:0042.7[facility] IpqgufkSPDMYPVDOW8552-35-20 05:01:00 Test Item Value Reference Range Interpretation Comments MCH (test code = MCH) 29.0 pg 27.0-31.0 [facility] EaovvuyAZLWVXNUPY5584-87-37 05:01:0088.2[facility]annHEMATOLOGY 2019-01-22 05:01:00 Test Item Value Reference Range Interpretation Comments INR (test code = INR) 0.96 1 0.85-1.17 [facility] BcqpusiALOFIBGNUO1599-77-05 05:01:00 Test Item Value Reference Range Interpretation Comments PT (test code = PT) 12.6 s 12.0-14.7 [facility] XctfjhqADDHMIVKXJ9426-43-15 05:01:00 Test Item Value Reference Range Interpretation Comments PTT (test code = PTT) 25.9 s 22.9-35.8 [facility] UJSYFSB1297-05-69 05:01:00Negative (01/22/19 12:01 AM) [facility] HermannCARDIAC AHXIDHC1752-88-82 05:01:00<0.02[facility] CARDIAC FDOEWEO5699-10-83 05:01:0049[facility] HermannCHEM YNCTJ0407-06-62 05:01:000.6[facility] HermannCHEM ABTQR3863-14-04 05:01:57127[facility] HermannCHEM BJROF6742-27-53 05:01:004.0[facility] HermannCHEM GZRVZ9557-22-95 05:01:0017 [facility] HermannCHEM NGWLC6967-30-19 05:01:0025[facility] HermannCHEM PANEL 2019-01-22 05:01:008.1[facility] HermannCHEM PIAUC5502-89-77 05:01:00 Test Item Value Reference Range Interpretation Comments B/C Ratio (test code = B/C Ratio) 20 1 6-25 [facility] HermannCHEM QJEQL2886-10-33 05:01:00 Test Item Value Reference Range Interpretation Comments A/G Ratio (test code = A/G Ratio) 1.0 1 0.7-1.6 [facility] NYDQJ5946-08-73 05:01:004.1[facility]annCHE[facility] PAN[facility] 2019-01-22 05:01:006.90[facility] CenterNhdaeqbLUOVLBXQZLDFU3911-35-74 05:01:00Negative *NA*(01/22/19 12:01 AM)[facility]VpfuuamYTNJBQNMJU2441-96-62 05:01:000.1[facility] CenterYoboresPXJ1Z1511-19-66 14:36:00 Test Item Value Reference Range Interpretation [...] 0.00-0.01 N code = ETOHU) Comprehensive Metabolic Wcttc0359-23-22 14:36:00 Test Item Value Reference Range Interpretation [...] the [employer],http :[email or web address] ep.nih.gov Urinalysis Pieanjfh3015-42-40 14:32:00 Test Item Value Reference Range Interpretation Comments Color (test code = COLOR) Yellow Yellow,Straw,Pl N yellow Clarity (test code = Clear Clear N CLAR) Specific [place] (test 1.024 1.001-1.035 N code = SPGR) [...] code = Few /HPF BACT) CBC with Ieggkkkemldm5049-83-91 14:21:00 Test Item Value Reference Range Interpretation [...]
--- NOTE | 2021-10-29 14:44 | ER ---
Nurse's Notes [facility] Name: Tiffany Quinn Age: 51 yrs Sex: Female : 1970 Arrival Date: 10/29/2021 Time: 14:16 Bed Waiting Private MD: Diagnosis: Headache;Drug abuse counseling and surveillance Presentation: 10/29 14:32 Chief complaint: Patient states: I am back because I have a really bad headache. I laid ld1 down and I just am not feeling any better. Coronavirus screen: At this time, the client does not indicate any symptoms associated with coronavirus-19. Ebola Screen: No symptoms or risks identified at this time. Initial Sepsis Screen: Does the patient meet any 2 criteria? No. Patient's initial sepsis screen is negative. Does the patient have a suspected source of infection? No. Patient's initial sepsis screen is negative. Risk Assessment: Do you want to hurt yourself or someone else? Patient reports no desire to harm self or others. Onset of symptoms was October 29, 2021. 14:32 Method Of Arrival: Ambulatory ld1 14:32 Acuity: MANUEL 4 ld1 Triage Assessment: 14:34 Headache History: Denies prior headaches. General: Appears in no apparent distress. ld1 comfortable, Behavior is calm, cooperative, appropriate for age. Pain: Complains of pain in face. Neuro: Level of Consciousness is awake, alert, obeys commands, Oriented to person, place, time, situation. Respiratory: Airway is patent Respiratory effort is even, unlabored, Respiratory pattern is regular, symmetrical. 14:49 Pain: Pain Also complains of no other associated symptoms. ld1 14:49 Pain: Pain began gradually. 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 - Social history:: Smoking status: Patient denies any tobacco usage or history of. Patient/guardian denies using alcohol, street drugs. Screenin:48 Abuse screen: Denies threats or abuse. Denies injuries from another. Nutritional ld1 screening: No deficits noted. Tuberculosis screening: No symptoms or risk factors identified. Fall Risk None identified. Assessment: 14:48 Reassessment: See triage assessment. Pain: Denies pain. ld1 Vital Signs: 14:32 BP 137 / 91; Pulse 94; Resp 18; Temp 98.7(O); Pulse Ox 98% on R/A; Weight 71.67 kg; ld1 Height 5 ft. 1 in. (154.94 cm); Pain 0/10; 14:32 Body Mass Index 29.85 (71.67 kg, 154.94 cm) ld1 ED Course: 14:16 Patient arrived in ED. ds1 14:34 Triage completed. ld1 14:34 Arm band placed on right wrist. ld1 14:42 Venkatesh Funez NP is PHCP. pm1 14:42 Manuel Ward MD is Attending Physician. pm1 14:48 Patient has correct armband on for positive identification. Placed in gown. Bed in low ld1 position. Call light in reach. Side rails up X2. Pulse ox on. NIBP on. Door closed. Noise minimized. 14:48 No provider procedures requiring assistance completed. Patient did not have IV access ld1 during this emergency room visit. Administered Medications: No medications were administered Outcome: 14:44 Discharge ordered by . pm1 14:48 Discharged to home ambulatory. ld1 14:48 Condition: stable 14:48 Discharge instructions given to patient, Instructed on discharge instructions, follow up and referral plans. Demonstrated understanding of instructions, follow-up care. 14:50 Patient left the ED. ld1 Signatures: Neelima Rivera ds1 Venkatesh Funez NP MAINTENANCE ASSOCIATE pm1 Radha Paez RN RN ld1
--- NOTE | 2021-10-29 14:44 | EDPHYS ---
Physician Documentation [facility] Name: Tiffany Quinn Age: 51 yrs Sex: Female : 1970 Arrival Date: 10/29/2021 Time: 14:16 Bed Waiting Private MD: ED Physician Manuel Ward HPI: 10/29 14:44 This 51 yrs old Female presents to ER via Ambulatory with complaints of Headache, pm1 Nausea. 14:44 The patient complains of pain to the top of head. The patient describes the headache as pm1 aching. Onset: The symptoms/episode began/occurred 2 day(s) ago. Associated signs and symptoms: Pertinent positives: nausea, Pertinent negatives: fever, neck stiffness, paresthesias, weakness. Severity of symptoms: in the emergency department the pain is actually worse. Headache History: The patient has had previous headaches and this one is similar to previous episodes. The symptoms are alleviated by Fioricet given in prior ER visit today. The patient has experienced similar episodes in the past, multiple times. The patient has been recently seen at the [facility] Emergency Department, today, for similar complaints discharged home to follow up with her PCP. Patient reports use of methamphetamine 2 days ago. 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 - Social history:: Smoking status: Patient denies any tobacco usage or history of. Patient/guardian denies using alcohol, street drugs. ROS: 14:44 Constitutional: Negative for fever, chills, and weight loss, Cardiovascular: Negative pm1 for chest pain, palpitations, and edema, Respiratory: Negative for shortness of breath, cough, wheezing, and pleuritic chest pain. 14:44 MS/Extremity: Negative for injury and deformity, Skin: Negative for injury, rash, and discoloration. 14:44 Abdomen/GI: Positive for nausea, Negative for abdominal pain, vomiting, diarrhea. 14:44 Neuro: Positive for headache, Negative for numbness, tingling. 14:44 All other systems are negative. Exam: 14:44 Constitutional: This is a well developed, well nourished patient who is awake, alert, pm1 and in no acute distress. Head/Face: Normocephalic, atraumatic. 14:44 Back: No spinal tenderness. No costovertebral tenderness. Full range of motion. Skin: Warm, dry with normal turgor. Normal color with no rashes, no lesions, and no evidence of cellulitis. MS/ Extremity: Pulses equal, no cyanosis. Neurovascular intact. Full, normal range of motion. 14:44 Eyes: Exam is negative for acute changes, Extraocular movements: no acute changes, Conjunctiva: no acute changes, no injection, Sclera: no acute changes, icterus, is present. 14:44 Cardiovascular: Exam negative for acute changes, Rate: normal, Rhythm: regular, Pulses: no pulse deficits are appreciated. 14:44 Respiratory: Exam negative for acute changes, respiratory distress, shortness of breath. 14:44 Abdomen/GI: Inspection: abdomen appears normal, Palpation: abdomen is soft and non-tender, in all quadrants. 14:44 Neuro: Exam negative for acute changes, Orientation: is normal, Mentation: is normal, Motor: is normal, moves all fours, Gait: is steady, at a normal pace, without difficulty. 14:44 Psych: Affect is animated, Oriented to person, place, time. Vital Signs: 14:32 BP 137 / 91; Pulse 94; Resp 18; Temp 98.7(O); Pulse Ox 98% on R/A; Weight 71.67 kg; ld1 Height 5 ft. 1 in. (154.94 cm); Pain 0/10; 14:32 Body Mass Index 29.85 (71.67 kg, 154.94 cm) ld1 MDM: 14:42 Data reviewed: vital signs. Data interpreted: Pulse oximetry: on room air is 98 %. pm1 Interpretation: normal. Counseling: I had a detailed discussion with the patient and/or guardian regarding: the historical points, exam findings, and any diagnostic results supporting the discharge/admit diagnosis, the need for outpatient follow up, a family practitioner, to return to the emergency department if symptoms worsen or persist or if there are any questions or concerns that arise at home. 14:44 Patient medically screened. pm1 Administered Medications: No medications were administered Disposition: 15:38 Co-signature as Attending Physician, Manuel Ward MD I agree with the assessment and rn plan of care. Attestation: The patient's history, exam findings, diagnostics, and a summary of any interventions or procedures was reviewed in detail with Venkatesh Funez NP. Disposition Summary: 10/29/21 14:44 Discharge Ordered Location: Home pm1 Problem: new pm1 Symptoms: are unchanged pm1 Condition: Stable pm1 Diagnosis - Headache pm1 - Drug abuse counseling and surveillance pm1 Followup: pm1 - With: Emergency Department - When: As needed - Reason: Worsening of condition Followup: pm1 - With: Private Physician - When: 2 - 3 days - Reason: Recheck today's complaints, Continuance of care, Re-evaluation by your physician Discharge Instructions: - Discharge Summary Sheet pm1 - General Headache Without Cause pm1 - Methamphetamines Use Disorder pm1 Forms: - Medication Reconciliation Form pm1 - Thank You Letter pm1 - Antibiotic Education pm1 - Prescription Opioid Use pm1 Signatures: Manuel Ward MD MD rn Marinas, Patrick, NP [employer] pm1 Radha Paez, RN RN ld1
[2021-10-29 15:13] VITALS: BP 137/91; TEMP 98.7; O2SAT 98
== END 2021-10-29 14:50 | disposition home or self-care (01) ==
LOC: ER 14:15
DX: R51.9 Headache, unspecified (principal); Z71.51 Drug abuse counseling and surveillance of drug abuser
CPT/HCPCS: 99283

== ENCOUNTER 2021-10-30 07:33 | Emergency (ER) | payer OTHER ==
--- OUTSIDE RECORDS SUMMARY | 2021-10-30 07:40 | XMS REPORT | Continuity of Care Document ---
:1970 Author Organization [facility] t Address [address] [place] [address] Care Team Providers Name Role Phone UNKNOWN Primary Care Physician Unavailable Ronnell Attending Clinician Unavailable Sanchez SNOW Attending Clinician SANCHEZ Attending Clinician Unavailable Jovani Del Rosario Attending Clinician Doctor Unassigned, Name Attending Clinician Unavailable Singer ESCALANTE Attending Clinician Attending Clinician Unavailable Humaira-Mbayo_A_AH Attending Clinician Unavailable Chente Attending Clinician Unavailable Chetne Attending Clinician Unavailable ALEXYSUWKYRA Attending Clinician Unavailable Physician, Primary or Family Admitting Clinician Unavailyanna ROGERS Admitting Clinician Unavailable Humaira-Mbayo_A_AH Admitting Clinician Unavailable Chente Admitting Clinician Unavailable AFUWAPE Admitting Clinician Unavailable Payers Payer Name Policy Type Policy Number Effective Date Expiration Date S nasim [facility] [place] - [id number] 2020 [place] 00:00:00 (MEDICARE REPLACEMENT/ADVANT AGE - HMO) Problems Condition Condition Condition Status Onset Resolution Last Treating Co mments Source Name Details Category Date Date Treatment Clinician Date LOW PB Diagnosis Active 2019-01-22 Mem oria 01-21 01:52:00 l LOW PB 00:00: [place] 00 Active 01/21/2019 [facility] INFECTIOUS Diagnosis Active 2019-02-06 Memoria GASTROENTE 30 08:58:00 l RITIS AND 00:00: Yonis COLITIS INFECTIOUS 00 GASTROENTE RITIS AND COLITIS Active 01/21/2019 [facility] Irregular Irregular Disease Active Uni vers menstrual menstrual 8-15 ity of cycle cycle 00:00: [address] Branch Skin Skin Disease Active Univers lesion lesion 8-15 ity of 00:00: [address] Psychiatri Psychiatri Disease Active U nivers c disorder c disorder 8-15 it y of 00:00: [address] Well woman Well woman Disease Active U nivers exam with exam with 8-15 ity of routine routine 00:00: [place] gynecologi gynecologi 00 Me dical nicky exam nicky exam Branch INFECTIOUS Diagnosis Active 2019-02-06 Memoria GASTROENTE 08:58:00 l RITIS AND Yonis COLITIS, INFECTIOUS GASTROENTE RITIS AND COLITIS, Active [facility] Allergies, Adverse Reactions, Alerts Allergy Allergy Status Severity Reaction(s) Onset Inactive Treating Comm ents Source Name Type Date Date Clinician prometha DA Active CO ANXIETY [facility] zine 1-01 Clear 00:00: Catherine 00 [facility] prometha DA Active U [facility] zine 7-04 Clear 00:00: Cahterine 00 [facility] NO KNOWN Drug Active Univers ALLERGIE Class ity of S [facility] Phenerga Phenerga Active [place] [facility] n n winifred [place] Social History Social Habit Start Date Stop Date Quantity Comments Source History of Cigarette Smoker Universi ty of tobacco use [facility] Tobacco Comment 2-3 cigs a day Unive rsity of [facility] Exposure to Not sure University of SARS-CoV-2 [facility] (event) [place] Tobacco use and 2016-06-08 2016-06-08 Never used Universit y of exposure 00:00:00 00:00:00 [facility] Alcohol intake 2016-06-08 2016-06-08 0 /d University of 00:00:00 00:00:00 [facility] Sex Ass[birth year] At [birth year] Universit y of 00:00:00 00:00:00 [facility] Smoking Status Start Date Stop Date Source Social History 2019-01-22 05:00:12 [facility] Her urena Current some day smoker 2016-06-08 00:00:00 [facility] Medications Ordered Filled Start Stop Current Ordering Indication Dosage Frequency Signature Comments Components Source Medication Medication Date Date Medication? Clinician (SIG) Name Name cefTRIAXone 2020-10 No 1000mg 1,000 mg, Univers (ROCEPHIN) 11-10 IV ity of 1,000 mg in 08:30: 08:01 Piggyback, [place] NaCl 0.9% 00 :00 ONCE, 1 Medical [...] :00 dose, On Medi nicky mg Wed [place] 09/10/21 at 0045, RANDA NaCl 0.9% 2020-10 No 1000mL at 999 Uni vers (NS) bolus 11-10 mL/hr, ity of infusion 05:30: 05:30 1,000 mL, Joe as 1,000 mL 00 :00 IV Medical Infusion, Branch ONCE, 1 dose, On 09/09/21 at 2330, RANDA amoxicillin 2020-10 Yes [id number] 500mg Take 1 Univers 500 mg 11-10 capsule by ity of capsule 00:00: mouth 3 [place] 00 (three) Medical times [place] daily. ondansetron 2019-10- No 4mg 4 mg, Univ ers (ZOFRAN-ODT 12-01 Oral, ity of ) 15:15: 14:16 ONCE, 1 [place] disintegrat 00 :00 dose, Mon Med ical ing tablet 09/30/20 at [facility] 4 mg 0915, Routine ondansetron 2019-10- No 4mg 4 mg, Univ ers (ZOFRAN-ODT 2-07 12-07 Oral, ity of ) 14:30: 13:32 ONCE, 1 [place] disintegrat 00 :00 dose, Mon Med ical ing tablet 09/30/20 at [facility] 4 mg 0830, Routine ondansetron 2019-10 Yes [id number] 4mg Take 1 Univers 4 mg 2-07 tablet by ity of disintegrat 00:00: mouth [place] ing tablet 00 every 8 Medica l (eight) Branch hours as needed for Nausea and Vomiting (N/V). ondansetron 2019-10 Yes [id number] 4mg Take 1 Univers 4 mg 2-07 tablet by ity of disintegrat 00:00: mouth [place] ing tablet 00 every 8 Medica l (eight) Branch hours as needed for Nausea and Vomiting (N/V). ondansetron 2019-10 Yes [id number] 4mg Take 1 Univers 4 mg 2-07 tablet by ity of disintegrat 00:00: mouth [place] ing tablet 00 every 8 Medica l (eight) Branch hours as needed for Nausea and Vomiting (N/V). ondansetron 2019-10 Yes [id number] 4mg Take 1 Univers 4 mg 2-07 tablet by ity of disintegrat 00:00: mouth [place] ing tablet 00 every 8 Medica l (eight) Branch hours as needed for Nausea and Vomiting (N/V). ciprofloxac Yes 500 mg = 1 Memoria in 500 mg 4-04 tab, PO, l oral tablet 17:35: [id number], X Yonis 00 4 day, # 8 tab, 0 Refill(s) Ondansetron Yes 4 mg = 1 Me moria 4 MG Oral 4-04 tab, PO, l Tablet 17:35: Q6H, PRN [place] [Zofran] 00 Nausea/Vom iting, # 20 tab, [...] 4-04 tab, PO, l oral tablet 17:35: [id number], X [place] 00 4 day, # 8 tab, 0 [...] s with feeding tube less than 14 Cymro (Dobhoff, J-tube etc) and pediatric and patients. Potassium No Notes: Memori a Chloride 4-03 (Same as: l 13:26: K-Dur 20) [place] 00 "Do Not Crush" Give with food and full glass of water For patients unable to swallow tablet, dissolve in one half glass of water. Allow about 2 minutes for the tablets to disintegra te. Stir before giving to prepare slurry and administer . Please exclude Patient s with feeding tube less than 14 Cymro (Dobhoff, J-tube etc) and pediatric and patients. Strattera No 0.5 mg/kg, Me moria 4-02 Route: PO, l 14:00: QAM, [place] 00 Dosing Weight 75, kg, Start date: 01/24/19 9:00:00 CDT, Duration: 30 day, Stop date: 02/22/19 9:00:00 CDT Strattera No 0.5 mg/kg, Me moria 01-24 Route: PO, l 14:00: QAM, Dosing Weight 75, kg, Start date: 01/24/19 9:00:00 CDT, Duration: 30 day, Stop date: 02/22/19 9:00:00 CDT lithium No Notes: Do Memor ia - not crush l 02:00: or chew. (Same as: Eskalith-C R) lithium No Notes: Do Memor ia 4- not crush l 02:00: or chew. (Same as: Eskalith-C R) Risperdal No Notes: Memori a - (Same as: l 22:00: Risperdal) Strattera No 1 mg, Memoria 01-23 Route: PO, l 22:00: QPM, Dosing Weight 75, kg, Start date: 01/23/19 17:00:00 CDT, Duration: 30 day, Stop date: 02/21/19 17:00:00 CDT Risperdal No Notes: Memori a 4- (Same as: l 22:00: Risperdal) era No [...] ia 4- (Same As: l 18:00: KlonoPIN) [place] 00 Clonazepam No Notes: Memor ia 4- (Same As: l 18:00: KlonoPIN) Yonis Flagyl No Notes: Memoria 4-01 (Same as: l 15:00: Flagyl) Yonis 00 Take with food/ avoid alcohol Cipro No Notes: May Memori a - interfere l 15:00: w/enteral [place] 00 feedings - Take 1 hr before or 2 hrs after antacids, dairy pdt & minerals. On empty stomach. Flagyl No Notes: Memoria 4-01 (Same as: l 15:00: Flagyl) [place] 00 Take with food/ avoid alcohol Cipro No Notes: May Memori a 4-01 interfere l 15:00: w/enteral [place] 00 feedings - Take 1 hr before [...] PO, ONCE, l mEq oral 14:20: 0 [place] tablet, 00 Refill(s) extended release Metronidazo No 500 mg, Mem oria le 500 MG 4-01 PO, l Oral Tablet 14:20: [id number], 0 H ermann [Flagyl] 00 Refill(s) Ciprofloxac No 500 mg, Mem oria in 500 MG 4-01 PO, l Oral Tablet 14:20: [id number], 0 Yonis [Cipro] 00 Refill(s) potassium Yes 40 mEq, Memor ia chloride 20 4-01 PO, ONCE, l mEq oral 14:20: 0 [place] tablet, 00 Refill(s) extended release Metronidazo No 500 mg, Mem oria le 500 MG 4-01 PO, l Oral Tablet 14:20: [id number], 0 H ermann [Flagyl] 00 Refill(s) Ciprofloxac No 500 mg, Mem oria in 500 MG 4-01 PO, l Oral Tablet 14:20: [id number], 0 [place] [Cipro] 00 Refill(s) Potassium No Notes: Memori [...] s with feeding tube less than 14 Cymro (Dobhoff, J-tube etc) and pediatric and patients. Potassium No Notes: Memori a Chloride -01 (Same as: l 14:17: K-Dur 20) [place] 00 "Do Not Crush" Give with food and full glass of water For patients unable to swallow tablet, dissolve in one half glass of water. Allow about 2 minutes for the tablets to disintegra te. Stir before giving to prepare slurry and administer . Please exclude Patient s with feeding tube less than 14 Cymro (Dobhoff, J-tube etc) and pediatric and patients. Pepcid No Notes: Memoria 3-31 (Same as: l 22:00: Pepcid) Yonis 00 Pepcid No Notes: Memoria 3-31 (Same as: l 22:00: Pepcid) Strattera 2019-0 Yes 0.5 mg/kg, Me moria 3-31 PO, QAM, 0 l 21:08: Refill(s) lithium 450 0 Yes 450 mg = [...] tab, PO, l Tablet 21:08: BID, 0 [place] [Risperdal] 00 Refill(s) Zosyn No Notes: Memoria 3-31 (Same as: l 16:00: Zosyn) Dosing based on Piperacill in component MEDICATION WASTE Product Size: 3375 mg Product Wasted: ___ mg Zosyn No Notes: Memoria 3-31 (Same as: l 16:00: Zosyn) Dosing based on Piperacill in component MEDICATION WASTE Product Size: 3375 mg Product Wasted: ___ mg Tramadol 2019-0 No Notes: Not Mem oria 3-31 to exceed l 15:03: 400mg/day. [place] 00 (Same As: Ultram) Tramadol 2018-0 No Notes: Not Mem oria 3-31 to exceed l 15:03: 400mg/day. [place] 00 (Same As: Ultram) normal 0 No 1,000 mL, Memori a saline 0.9% 3-31 Rate: 150 l IV 1,000 mL 09:48: ml/hr, Herm stephon 00 Infuse over: 6.7 hr, Route: IV, Dosing Weight 75.994 kg, Total Volume: 1,000, Start date: 01/22/19 4:48:00 CDT, Duration: 30 day, Stop date: 02/21/19 4:47:00 CDT normal 0 No 1,000 mL, Memori a saline 0.9% 3-31 Rate: 150 l IV 1,000 mL 09:48: ml/hr, Herm stephon 00 Infuse over: 6.7 hr, Route: IV, Dosing Weight 75.994 kg, Total Volume: 1,000, Start date: 01/22/19 4:48:00 CDT, Duration: 30 day, Stop date: 02/21/19 4:47:00 CDT Ondansetron 0 No Notes: Estrada doni - (Same as: l 09:47: Zofran) MEDICATION WASTE Product Size: 4 mg Product Wasted: ___ mg Glucagon No 1 mg, Memoria 31 Route: IM, l 09:47: Drug form: [place] 00 PDR/INJ, PRN, Dosing Weight 75.994, kg, PRN Blood Glucose Results, Start date: 01/22/19 4:47:00 CDT, Duration: 30 day, Stop date: 02/21/19 4:46:00 CDT Dextrose 0 No 12.5 gm, Memor ia 50% Syringe 01-22 25 mL, l 09:47: Route: [place] 00 IVP, Drug Form: INJ, Dosing Weight 75.994, kg, PRN, PRN Blood Glucose Results, Start date: 01/22/19 4:47:00 CDT, Duration: 30 day, Stop date: 02/21/19 4:46:00 CDT Ondansetron No Notes: Estrada doni - (Same as: l 09:47: Zofran) Yonis MEDICATION WASTE Product Size: 4 mg Product Wasted: ___ mg Glucagon No 1 mg, Memoria 31 Route: IM, l 09:47: Drug form: [place] PDR/INJ, PRN, Dosing Weight 75.994, kg, PRN Blood Glucose Results, Start date: 01/22/19 4:47:00 CDT, Duration: 30 day, Stop date: 02/21/19 4:46:00 CDT Dextrose No 12.5 gm, Memor ia 50% Syringe 01-22 25 mL, l 09:47: Route: [place] 00 IVP, Drug Form: INJ, Dosing Weight [...] moria IV 01-22 1,000 l 08:52: ml/hr, Infuse Over: 1 hr, Route: IV, 1,000, Drug form: INJ, ONCE, Priority: STAT, Dosing Weight 75.994 kg, Start date: 01/22/19 3:52:00 CDT, Stop date: 01/22/19 3:52:00 CDT NS (Bolus) No 1,000 mL, Me moria IV - 1,000 l 08:52: ml/hr, Infuse Over: 1 [...] moria IV 3-31 1,000 l 05:44: ml/hr, [place] 00 Infuse Over: 1 hr, Route: IV, 1,000, Drug form: INJ, ONCE, Priority: STAT, Dosing Weight 75.994 kg, Start date: 01/22/19 0:44:00 CDT, Stop date: 01/22/19 0:44:00 CDT NS (Bolus) No 1,000 mL, Me moria IV 3-31 1,000 l 05:44: ml/hr, [place] 00 Infuse Over: 1 hr, Route: IV, 1,000, Drug form: INJ, ONCE, Priority: STAT, Dosing Weight 75.994 kg, Start date: 01/22/19 0:44:00 CDT, Stop date: 01/22/19 0:44:00 CDT Zofran No Notes: Memoria 3-31 (Same as: l 04:52: Zofran) Yonis 00 MEDICATION WASTE Product Size: 4 mg Product Wasted: ___ mg Saline No Notes: Memoria Flush 0.9% 3-31 Same as: l 04:52: BD Posiflush Sterile Zofran No Notes: Memoria 3-31 (Same as: l 04:52: Zofran) MEDICATION WASTE Product Size: 4 mg Product Wasted: ___ mg Saline No Notes: Memoria Flush 0.9% 3-31 Same as: l 04:52: BD Posiflush Sterile [...] tablet by ity of HYDROCHLORI 00:00: mouth [facility] [place],) 4 mg 00 every 8 Medical tablet (eight) Branch hours. ibuprofen 2016-0 Yes 200mg Take 200 Uni vers (ADVIL) 200 8-15 mg by ity of mg tablet 19:02: mouth [place] [id number] every 6 Medical (six) Branch hours as needed. CLONAZEPAM 2016-0 Yes Take by Uni vers (KLONOPIN 8-15 mouth. ity of ORAL) 19:02: [place] [address] Medical Branch CITALOPRAM 2016-0 Yes Take by Uni vers HYDROBROMID 8-15 mouth. ity of E 19:02: [place] (CITALOPRAM 27 Medical ORAL) Branch ibuprofen 2016-0 Yes 200mg Take 200 Uni vers (ADVIL) 200 8-15 mg by ity of mg tablet 14:02: mouth [place] [address] every 6 Medical (six) Branch hours as needed. CLONAZEPAM 2016-0 Yes Take by Uni vers (KLONOPIN 8-15 mouth. ity of ORAL) 14:02: [address] Branch CITALOPRAM 2016-0 Yes Take by Uni vers HYDROBROMID 8-15 mouth. ity of E 14:02: [place] (CITALOPRAM 27 Medical ORAL) Branch ibuprofen 2016-0 Yes 200mg Take 200 Uni vers (ADVIL) 200 8-15 mg by ity of mg tablet 14:02: mouth [place] [id number] every 6 Medical (six) Branch hours as needed. CLONAZEPAM 2016-0 Yes Take by Uni vers (KLONOPIN 8-15 mouth. ity of ORAL) 14:02: [address] Branch CITALOPRAM 2016-0 Yes Take by Uni vers HYDROBROMID 8-15 mouth. ity of E 14:02: [place] (CITALOPRAM 27 Medical ORAL) Branch ibuprofen 2016-0 Yes 200mg Take 200 Uni vers (ADVIL) 200 8-15 mg by ity of mg tablet 14:02: mouth [place] [address] every 6 Medical (six) Branch hours as needed. CLONAZEPAM 2016-0 Yes Take by Uni vers (KLONOPIN 8-15 mouth. ity of ORAL) 14:02: [address] Branch CITALOPRAM 2016-0 Yes Take by Uni vers HYDROBROMID 8-15 mouth. ity of E 14:02: [place] (CITALOPRAM 27 Medical ORAL) Branch misoprostol Yes [...] BID. ity of etamine 00:00: [place] (ADDERALL) Medical 20 mg Branch tablet dextroamphe 0 Yes TK 1 T PO U nivers tamine-amph 7-20 BID. ity of etamine 00:00: [place] (ADDERALL) Medical 20 mg Branch tablet dextroamphe 0 [...] ity of mg tablet 00:00: every 6 [place] 00 (six) Medical hours as Branch needed [...] ity of mg tablet 00:00: every 6 [place] 00 (six) Medical hours as Branch needed for Pain (scale 4-6). naproxen 2014-10 Yes 500mg Take 1 Tab Un parul (NAPROSYN) 1-16 by mouth 2 ity of 500 mg 00:00: (two) [place] tablet 00 times Medical daily with Branch meals. Vital Signs Vital Name Observation Time Observation Value Comments Source Systolic blood 2021-09-10 08:01:00 138 [facility]Hg[facility] 2021-09-10 08:01:00 97 mm[Hg] [facility] Heart rate 2021-09-10 08:01:00 87 /min [facility] Respiratory rate 2021-09-10 08:01:00 20 /min [facility] Oxygen saturation in 2021-09-10 08:01:00 98 /min [facility] Arterial blood by [facility] Pulse oximetry [place] Body temperature 2021-09-10 04:28:51 37.17 Ruthann [facility] Body height 2021-09-10 04:26:00 154.9 cm [facility] Body weight 2021-09-10 04:26:00 81.647 kg [facility] BMI 2021-09-10 04:26:00 34.01 kg/m2 [facility] Systolic blood 2021-09-09 20:06:00 150 mm[Hg] Univer sity [place] [facility] Diastolic blood 2021-09-09 20:06:00 89 mm[Hg] Unive rsity of pressure [place] [facility] Heart rate 2021-09-09 20:06:00 108 /min [facility] [place] [facility] Body temperature 2021-09-09 20:06:00 37.22 Ruthann [facility] [place] [facility] Respiratory rate 2021-09-09 20:06:00 18 /min Univ [facility] [place] [facility] Oxygen saturation in 2021-09-09 20:06:00 99 /min University of Arterial blood by [place] [employer] nicky Pulse oximetry Branch Body weight 2021-09-09 [...] /min University of Arterial blood by [place] [employer] nicky Pulse oximetry Branch Body temperature 2020-09-30 [...] /min University of Arterial blood by [place] [employer] nicky Pulse oximetry Branch Body temperature 2020-09-30 13:26:00 37.22 Ruthann Univ ers[facility] [place] [facility] Respiratory rate 2020-09-30 13:26:00 16 /min Univ [facility] [place] [facility] Body weight 2020-09-30 13:26:00 72.576 kg [facility] BMI 2020-09-30 13:26:00 28.80 kg/m2 [facility] Temperature Oral (F) 2019-01-28 01:16:00 98.6 F [facility] [place] Systolic (mm Hg) 2019-01-28 01:16:00 Estrada rial Yonis Diastolic (mm Hg) 2019-01-28 01:16:00 Mem orial Y[place]is Heart Rate 2019-01-28 01:16:00 [facility] [place] Respitory Rate 2019-01-28 01:16:00 Memori al Yonis Systolic (mm Hg) 2019-01-27 20:42:00 Estrada rial [place]onis Diastolic (mm Hg) 2019-01-27 20:42:00 Mem orial Yonis Heart Rate 2019-01-27 20:42:00 Memorial [place] Respitory Rate 2019-01-27 20:42:00 Memori al [place] Temperature Oral (F) 2019-01-27 20:42:00 98.5 F [facility] [place] Systolic (mm Hg) 2019-01-27 17:00:00 Estrada rial Yonis Diastolic (mm Hg) 2019-01-27 17:00:00 Mem orial Yonis Temperature Oral (F) 2019-01-27 17:00:00 98.5 F [facility] [place] Heart Rate 2019-01-27 17:00:00 [facility] Y[place]is Respitory Rate 2019-01-27 17:00:00 Memori al [place] Height 2019-01-22 14:35:00 [facility] Calculated 2019-01-22 14:35:00 Memori al [place] Weight 2019-01-22 14:35:00 [facility] Y[place] Weight 2019-01-22 04:34:00 [facility] [place] Procedures Procedure Date / Time Performing Clinician Source Performed URINALYSIS 2021-09-10 06:03:00 Neena Rogers [facility] URINE DRUG (IMMUNOASSAY) 2021-09-10 06:03:00 Neena Rogers [facility] nch SCREEN W/O REFLEX XR CHEST 1 VW 2021-09-10 04:57:30 Neena Rogers [facility] CREATINE KINASE 2021-09-10 04:39:[address] [facility] MAGNESIUM 2021-09-10 04:39:[address] [facility] TROPONIN I 2021-09-10 04:39:[address] [facility] COMP. METABOLIC PANEL 2021-09-10 04:39:00 Neena Rogers [facility] ([id number]) [facility] CBC WITH DIFF 2021-09-10 04:39[facility] 2021-09-10 04:39:[address] [facility] ACTIVATED PARTIAL 2021-09-10 04:39:00 Neena Rogers [facility] N-[facility]AL PRO-BNP 2021-09-10 04:39:00 Neena Rogers [facility] COVID-19 (ID NOW RAPID 2021-09-10 04:39:00 Neena Rogers [facility] TESTING) Medical Branch TROPONIN I 2021-09-09 21:49:00 Luanne Dumont [facility] COMP. METABOLIC PANEL 2021-09-09 21:49:00 Luanne Dumont [facility] ([id number]) Medical Branch LITHIUM 2021-09-09 21:49:00 DumontLuanne buenrostro [facility] CBC WITH DIFF 2021-09-09 21:49:00 Denhoff [facility] CONSENT/REFUSAL FOR 2021-09-09 19:51:22 Doctor Unassigned, [facility] DIAGNOSIS AND TREATMENT Name Medical Branch URINALYSIS 2020-09-30 13:27:[address] [facility] ADC,CLC OR LCC ONLY - 2020-09-30 13:27:00 [facility] INFLUENZA A & B DIRECT Medical B ranch ANTIGEN COVID-19 (ID NOW RAPID 2020-09-30 13:27:00 [facility] TEST[facility] Medical Branch Encounters Start End Encounter Admission Attending Care Care Encounter Source Date/Time Date/Time Type Type Clinicians Facility Department ID 2019-01-22 Inpatient E [facility] [id number] [facility] W 04:39:00 2021-10-25 2021-10-25 Emergency EM Ronnell, HCACELESTINO MIRANDA [id number] [facility] 01:01:00 01:57:00 Lulú [id number] [facility] 2021-09-09 2021-09-10 Emergency Sanchez, [facility] [id number] Univers 22:20:00 03:02:00 Neena JIMENEZ [id number] i ty of [place] [id number] [facility] [id number] [address] 2021-09-09 2021-09-10 Emergency X SANCHEZ, [facility] ERT [id number] Univers 22:20:00 03:02:00 NEENA cherrie [facility] 2021-09-09 2021-09-10 [facility] [id number] Univers 22:20:00 03:02:00 NEENA tubbs [facility] 2021-09-09 2021-09-09 Emergency Julia, [facility] [id number] Univers 14:07:00 17:35:00 Luanne JIMENEZ [id number] i [facility] 4.2.7.2.6 [facility] [id number] [address] 2021-09-09 2021-09-09 Orders Doctor BELKYS [id number] Univers 00:00:00 00:00:00 Only Unassigned, LANA [id number] ity of [place] [facility] [id number] [facility] [id number] [facility] 009 Branch 2020-09-30 2020-09-30 Emergency , VTANÍBAL [id number] Univers 07:22:00 08:18:00 Chuy Jimenez [id number] i ty of [place] [id number] [facility] [id number] [facility] 084 Branch 2020-09-30 2020-09-30 Emergency Singer [facility] [id number] 07:22:00 08:18:00 Chuy Jimenez [id number] [place] [id number] [place] [id number] 2020-09-30 2020-09-30 Emergency X SINGER [facility] ERT [id number] Univers 07:22:00 07:22:00 CHUY tubbs [facility] 2020-04-05 2020-04-05 Outpatient Humaira-Mbayo VFP VFP [id number] [facility] 05:44:00 05:44:00 _A_AH [id number] Family Practic e 2020-04-05 2020-04-05 Outpatient Humaira-Mbayo VFP VFP [id number] [place] 05:44:00 05:44:00 _A_AH [id number] Family Practic e 2020-04-05 2020-04-05 Outpatient Humaira-Mbayo VFP VFP [id number] [place] 05:44:00 05:44:00 _A_AH [id number] Family Practic e 2020-04-05 2020-04-05 Outpatient Humaira-Mbayo VFP VFP [id number] [place] 05:44:00 05:44:00 _A_AH 40526 Family Practic e 2020-03-04 2020-03-14 Inpatient 3 Chente, [facility] PSY [id number] 15:38:00 15:25:00 [facility] 2019-12-13 2019-12-13 Outpatient Humaira-Mbayo VFP VFP [id number] [facility] 07:22:00 07:22:00 _A_AH 12674 Family Practic e 2019-01-22 2019-01-28 Inpatient [facility] [id number] Memoria 04:33:00 04:40:00 martin Somers 00 l [facility] 2018-02-21 2018-02-20 Inpatient E [facility] [id number] 14:48:00 13:18:00 [facility] Results Test Description Test Time [...] 0.1-0.8 N UA RFLX MICR CULT IF [id number] 03:42:00 Test Item Value Reference Range Interpretation [...] /HPF NONE A code = AMORU) TROPONIN-I [id number] 01:52:00 Test Item Value Reference Range Interpretation Comments TROPONIN-I RAPID 0.00 ng/mL 0.00-0.08 N Performed b y certified (test code = topper press operator at [facility] Med Ctr Negative: <= 0.0 8 Positive: [...] changes in trop onin levels characteristic of CO. BASIC METABOLIC [id number] 01:47:00 Test Item Value Reference Range Interpretation [...] code = POCGLU) 110 MG/DL UA DIPSTICK [id number] 01:32:00 Test Item Value Reference Range Interpretation Comments UA GLUCOSE DIPSTIC POC NEGATIVE NEGATIVE (test code = GLUUP) UA BILIRUBIN DIPSTICK NEGATIVE NEGATIVE (test code = BILU) UA KETONE DIPSTICK POC 1+ NEGATIVE A (test code = KETUP) UA SPECIFIC GRAVITY (test 1.030 1.005-1.030 N code = SGU) UA BLOOD DIPSTIC POC NEGATIVE NEGATIVE Perform ed by (test code = BLUP) certified topper press operator at ED UA PH DIPSTIC POC (test 5 5.0-7.0 N code = PHUP) UA PROTEIN DIPSTICK POC NEGATIVE NEGATIVE (test code = DPROUP) UA UROBILINIOGEN QUAL NORMAL 0.2-1.0 (test code = UROQL) UA NITRITE DIPSTICK POC NEGATIVE Negative (test code = NITUP) UA LEUKOCYTE ESTERASE W 2+ NEGATIVE A REFLEX (test code = LEUUR) TROPONIN [id number] 05:26:53 Test Item Value Reference Interpretation Comments Range TROPONIN I (test 0.003 ng/mL See_Comment [Automated code = 5716272070) message] The system which generated this result [...] biotin. Lab Interpretation Normal (test code = 51097-3) [facility]-KPK4232-61-17 05:24:16 Test Item Value Reference Range Interpretation Comments NT-proBNP (test code 35 pg/mL See_Comment [Autom ated = 9114712085) message] The system which generated this result transmitted reference range : <=125. The reference range was not used to interpret this result as normal/abnormal . PERRY (test code = PERRY) Biotin has been reported to cause a negative bias, interpret results relative to patient's use of biotin. Lab Interpretation Normal (test code = 51085-6) [facility] 05:16:51 Test Item Value Reference Range Interpretation Comments MAGNESIUM (test code = 8711377396) 1.8 mg/dL 1.7-2.4 Lab Interpretation (test code = Normal 09443-8) [facility]COMP. METABOLIC PANEL (58761)2021-09-10 05:16:31 Test Item Value Reference Range Interpretation Comments NA (test code = 139 mmol/L 135-145 5131052993) K (test code = 4.0 mmol/L 3.5-5.0 1240293553) CL (test code = 108 mmol/L 98-108 2620430130) CO2 TOTAL (test code 25 mmol/L 23-31 = 0273289644) AGAP (test code = 2-16 1642467182) BUN (test code = 14 mg/dL 7-23 6289312615) GLUCOSE (test code = 88 mg/dL 70-110 6755619298) CREATININE (test code 0.89 mg/dL 0.50-1.04 = 1872569167) TOTAL BILI (test code 0.5 mg/dL 0.1-1.1 = 2827445776) CALCIUM (test code = 10.3 mg/dL 8.6-10.6 2285834248) T PROTEIN (test code 6.9 g/dL 6.3-8.2 = 1230771172) ALBUMIN (test code = 4.3 g/dL 3.5-5.0 2147954734) ALK PHOS (test code = 72 U/L 34-122 2202792954) ALTv (test code = 17 U/L 5-35 1742-6) AST(SGOT) (test code 29 U/L 13-40 = 1582633599) eGFR (test code = mL/min/1.73m2 9236838127) PRERY (test code = PERRY) Association of Glomerular [...] or urine or abnormalities in imaging tests). [facility] CenterCREATINE LLDOPW1718-30-75 05:16:16 Test Item Value Reference Range Interpretation Comments CK (test code = 3183975141) 267 U/L 33-194 H Lab Interpretation (test code = Abnormal 84550-9) [facility] CenterACTIVATED PARTIAL THRMPLAS [id number] 05:05:32 Test Item Value Reference Range Interpretation [...] seconds. Lab Interpretation Normal (test code = 64158-2) [facility] CenterPROTHROMBIN TIME / [id number] 05:03:30 Test Item Value Reference Range Interpretation [...] tions. Lab Interpretation (test Normal code = 78955-7) [facility] WITH [id number] 04:57:13 Test Item Value Reference Range Interpretation Comments WBC (test code = See_Comment [Automated 9690-2) message] The sy stem which generated this result transmitted reference range : 4.30 - 11.10 10*3/?L. The reference range was not used to interpret this result as normal/abnormal . RBC (test code = See_Comment [Automated 939-8) message] The sy stem which generated this [...] RDW-SD (test code = 41.2 fL 39.0-49.9 25866-6) RDW-CV (test code = 13.0 % 12.0-15.5 788-0) PLT (test code = See_Comment H [Automated 777-3) message] The sy stem which generated this result transmitted reference range : 166 - 358 10*3/ ?L. The reference r katie was not used to interpret this result as normal/abnormal . MPV (test code = 9.6 fL 9.5-12.9 95514-7) NRBC/100 WBC (test See_Comment [Automat ed code = 9847408899) message] The system which generated this result transmitted reference range : 0.0 - 10.0 /100 WBCs. The refer ence range was not u sed to interpret th is result as normal/abnormal . NRBC x10^3 (test code <0.01 See_Comment [Auto mated = 9806270137) message] The s [employer] which generated this result transmitted reference range : 10*3/?L. The reference range was not used to interpret this result as normal/abnormal . GRAN MAT (NEUT) % 61.9 % (test code = 770-8) IMM GRAN % (test code 0.30 % = 0445409918) LYMPH % (test code = 26.0 % 736-9) MONO % (test code = 9.5 % 5905-5) EOS % (test code = 1.6 % 713-8) BASO % (test code = 0.7 % 706-2) GRAN MAT x10^3(ANC) 5.91 10*3/uL 1.88-7.09 (test code = 9876231950) IMM GRAN x10^3 (test 0.03 10*3/uL 0.00-0.06 code = 0574458969) LYMPH x10^3 (test code 2.48 10*3/uL 1.32-3.29 = 731-0) MONO x10^3 (test code 0.91 10*3/uL 0.33-0.92 = 742-7) EOS x10^3 (test code = 0.15 10*3/uL 0.03-0.39 711-2) BASO x10^3 (test code 0.07 10*3/uL 0.01-0.07 = 704-7) Lab Interpretation Abnormal (test code = 21468-6) [facility] [id number] 22:24:55 Test Item Value Reference Interpretation Comments Range TROPONIN I (test 0.002 ng/mL See_Comment [Automated code = 3503949427) message] The system which generated this result [...] biotin. Lab Interpretation Normal (test code = 57996-4) [facility] CenterL[facility]UM2021[facility] 22:24:34 Test Item Value Reference Range Interpretation Comments [place] (test code = <0.2 0.6-1.2 L 5506413201) PERRY (test code = PERRY) Toxic Range: ? Greater than 1.2 mmol/L Lab Interpretation (test Abnormal code = 19995-4) [facility]. METABOLIC PANEL (71383)2021-09-09 22:13:54 Test Item Value Reference Range Interpretation Comments NA (test code = 139 mmol/L 135-145 9079498757) K (test code = 4.0 mmol/L 3.5-5.0 5040505330) CL (test code = 105 mmol/L 98-108 4604114540) CO2 TOTAL (test code 26 mmol/L 23-31 = 3971966740) AGAP (test code = 2-16 4695067199) BUN (test code = 11 mg/dL 7-23 5760073014) GLUCOSE (test code = 109 mg/dL 70-110 7354314337) CREATININE (test code 0.71 mg/dL 0.50-1.04 = 3718224169) TOTAL BILI (test code 0.6 mg/dL 0.1-1.1 = 1619717389) CALCIUM (test code = 10.4 mg/dL 8.6-10.6 7806955597) T PROTEIN (test code 7.6 g/dL 6.3-8.2 = 3851844858) ALBUMIN (test code = 4.7 g/dL 3.5-5.0 1686082543) ALK PHOS (test code = 78 U/L 34-122 9402030177) ALTv (test code = 19 U/L 5-35 1742-6) AST(SGOT) (test code 28 U/L 13-40 = 3729163709) eGFR (test code = mL/min/1.73m2 6416370718) PERRY (test code = PERRY) Association of [...] or urine or abnormalities in imaging tests). [facility] WITH [id number] 22:03:32 Test Item Value Reference Range Interpretation Comments WBC (test code = See_Comment [Automated 8180-2) message] The sy stem which generated this result transmitted reference range : 4.30 - 11.10 10*3/?L. The reference range was not used to interpret this result as normal/abnormal . RBC (test code = See_Comment [Automated 883-4) message] The sy stem which generated this [...] RDW-SD (test code = 40.2 fL 39.0-49.9 84419-5) RDW-CV (test code = 12.9 % 12.0-15.5 788-0) PLT (test code = See_Comment H [Automated 777-3) message] The sy stem which generated this result transmitted reference range : 166 - 358 10*3/ ?L. The reference r katie was not used to interpret this result as normal/abnormal . MPV (test code = 9.4 fL 9.5-12.9 L 54941-2) NRBC/100 WBC (test See_Comment [Automat ed code = 4304603195) message] The system which generated this result transmitted reference range : 0.0 - 10.0 /100 WBCs. The refer ence range was not u sed to interpret th is result as normal/abnormal . NRBC x10^3 (test code <0.01 See_Comment [Auto mated = 2253097404) message] The s ystem which generated this result transmitted reference range : 10*3/?L. The reference range was not used to interpret this result as normal/abnormal . GRAN MAT (NEUT) % 67.1 % (test code = 770-8) IMM GRAN % (test code 1.00 % = 7947768716) LYMPH % (test code = 21.4 % 736-9) MONO % (test code = 7.9 % 5905-5) EOS % (test code = 1.8 % 713-8) BASO % (test code = 0.8 % 706-2) GRAN MAT x10^3(ANC) 7.35 10*3/uL 1.88-7.09 H (test code = 1433683287) IMM GRAN x10^3 (test 0.11 10*3/uL 0.00-0.06 H code = 8756718622) LYMPH x10^3 (test code 2.34 10*3/uL 1.32-3.29 = 731-0) MONO x10^3 (test code 0.86 10*3/uL 0.33-0.92 = 742-7) EOS x10^3 (test code = 0.20 10*3/uL 0.03-0.39 711-2) BASO x10^3 (test code 0.09 10*3/uL 0.01-0.07 H = 704-7) Lab Interpretation Abnormal (test code = 00261-9) [facility]ADC,CLC OR L[facility] ONLY - INFLUENZA A & B DIRECT [id number] 14:04:00 Test Item Value Reference Range Interpretation Comments Influenza A (test code = 37142-4) Negative Negative Influenza B (test code = 22102-2) Negative Negative Lab Interpretation (test code = Normal 46003-3) [facility] CenterCOVID-19 (ID NOW RAPID TESTING)2020-09-30 14:03:00 Test Item Value Reference Range Interpretation Comments SARS-CoV-2 Rapid ID NOW Not Detected Not Detected (test code = 28651-9) PERRY (test code = PERRY) ID NOW COVID-19 Assay is an isothermal nucleic acid amplification test intended for the qualitative detection of nucleic acid from SARS-CoV-2 viral RNA in nasopharyngeal (SECURITY GUARD DISPATCHER) specimens. It is used under Emergency Use [...] indicated. Lab Interpretation Normal (test code = 22546-4) [facility] CenterURINALYSIS2020-12-07 13:55:00 Test Item Value Reference Range Interpretation Comments APPEARANCE (test code = Hazy Clear A 3456544420) COLOR (test code = Yellow Yellow 7275338434) PH (test code = 4.8-8.0 9854400185) SP GRAVITY (test code = 1.003-1.030 5745414184) GLU U QUAL (test code = Normal Normal 5207805892) BLOOD (test code = Negative Negative 4359592017) KETONES (test code = 5 mg/dL Negative A 6827759850) PROTEIN (test code = Negative Negative 2887-8) UROBILIN (test code = 2.0 mg/dL Normal A 1645324631) BILIRUBIN (test code = Negative Negative 3532050098) NITRITE (test code = Negative Negative 5530907408) LEUK ROZINA (test code = 25/uL Negative A 1693714927) RBC/HPF (test code = See_Comment [Autom ated message] 4243642214) The system [employer] generated this result transmit ngozi reference range : 0 - 3 HPF. The refe rence range was not u sed to interpret th is result as normal/abnormal . WBC/HPF (test code = See_Comment [Autom ated message] 3582015071) The system [employer] generated this result transmit ngozi reference range : 0 - 5 HPF. The refe rence range was not u sed to interpret th is result as normal/abnormal . BACTERIA (test code = Few Negative A 1432382078) MUCOUS (test code = Slight Negative LPF A 5332337419) SQ EPITH (test code = HPF 3670688745) Lab Interpretation (test Abnormal code = 32743-2) [facility] CenterRPR Lmgxzkuccsw0295-92-31 16:42:24 Test Item Value Reference Range Interpretation [...] = 10-24-2020 N Expiration Dt) Thyroid Stimulating Cfkttoe5655-93-88 08:35:16 Test Item Value Reference Range Interpretation Comments TSH (test code = TSH) 1.170 mIU/mL 0.270-4.200 Lipid Tjhpz7557-06-08 08:21:19 Test Item Value Reference Range Interpretation [...] calculation is LDL/HDL Ratio=L DL Calc/HDL Chol KFTCJMFZSNAT9452-78-47 08:24:008.6[facility] KsewehhNWRDDYAMPPEY7296-05-71 08:24:88540Ubmpuwly EsteufjHCKATNSJOXUB7255-47-05 08:24:0027[facility] NXTLORXPLMQF4770-49-46 08:24:80289Smelkhdj DlimaraWUJMUFWHNHAK0646-64-84 08:24:003.6[facility] FahhqgpXVQZIDWPIHBK4177-05-39 08:24:000.70[facility] ESVFJPUEBQMF5648-96-09 08:24:008.4[facility] SqzpvgrJOXRMVMEHVCW9415-49-06 08:24:34186Cgyghjml FgtmppgVAOMLLKDUFIG7780-51-60 08:24:0086[facility] [place] XGTQWIWSAKLK8867-71-06 08:24:006[facility] PskmhrzHTBPSAAKEK4661-16-71 08:24:00 11.6[facility] UnpurvsQGUGWMGSSP5137-25-99 08:24:003.78[facility]annHEMATOLOGY 2019-01-26 08:24:0013.3[facility] QavkprpWVGXUCYPNY7749-12-44 08:24:0034.0[facility] MephzpaXAUIUEFDUB8235-87-28 08:24:006.3[facility] QbrfwcrLFZQPJCUMM5388-11-72 08:24:00 Test Item Value Reference Range Interpretation Comments MCH (test code = MCH) 30.7 pg 27.0-31.0 [facility] OhwxwusZZQSISHULT7753-58-72 08:24:0090.3[facility]annHEMATOLOGY 2019-01-26 08:24:0034.2[facility] SizfahvSIMYUXIRWO2042-63-48 08:24:95075Rtswjvvp JiuilikETMJPZJPLP0536-78-53 08:24:007.5[facility] QeosqddOMSDCILLOKIG8690-98-71 08:24:008.6[facility] SkmhyumSPFVDQOYSFPN5710-31-16 08:24:63743Ewaqwfer [place] JCJFOYHYBNCW5962-76-44 08:24:0027[facility] AsnxfxuGBLUMMLLBLAZ2733-42-78 08:24:00 139[facility] YlwiviqOXVCJJGFTLOO3866-29-80 08:24:003.6[facility] FMNDSLVMPEZW1153-46-82 08:24:000.70[facility] CaxxhepWGDKONUDVWEY1511-40-19 08:24:008.4[facility] HxuydrsANUPXSBKTWUZ1195-45-21 08:24:74944Fniipxmd [place] DBTPVVFGSEUI9882-49-32 08:24:0086[facility] NmvsyrgLKVWQLTTKSLY3308-05-29 08:24:00 6[facility] PeqhkgeQDFWSJFBEJ9453-38-73 08:24:0011.6[facility]annHEMATOLOGY 2019-01-26 08:24:003.78[facility] ScutlioAZQIJBRFJT1623-05-69 08:24:0013.3[facility] BgcrlgiHAEWXJHJEV0504-36-91 08:24:0034.0[facility] UmtrzqjDQBAANDAYR4079-17-78 08:24:006.3[facility] HkxtlieXDGUGLORQN9226-13-61 08:24:00 Test Item Value Reference Range Interpretation Comments MCH (test code = MCH) 30.7 pg 27.0-31.0 [facility] FjajtwgCAQNFIZYCV9326-27-82 08:24:0090.3[facility]annHEMATOLOGY 2019-01-26 08:24:0034.2[facility] KqkspojPFUQYTPYFE8254-69-44 08:24:71741Kpcpkjkm TgutdugPLMHARSFNH4961-43-76 08:24:007.5[facility] HermannCHEM LIZYE1252-25-25 09:14:81181Tjhgweiv HermannCHEM ZHVCZ2407-57-19 09:14:008.5[facility]annCHEM FNMTF4012-94-94 09:14:0013.3[facility]annCHEM QWICN7576-34-53 09:14:0024 [facility]annCHEM DOQGZ8647-13-00 09:14:29027Lpkdjeuc HermannCHEM PANEL 2019-01-25 09:14:0081[facility]annCHEM UXABD2231-23-09 09:14:002[facility]annCHEM PTDAV7287-38-07 09:14:003.3[facility]annCHEM NZULG9375-01-98 09:14:000.60[facility]annCHEM RLDNB9286-94-33 09:14:23706Yzygvlxr HermannCHEM QZBXG5714-82-85 09:14:32532Omewjrug HermannCHEM FADFO4772-49-92 09:14:008.5 [facility]annCHEM JYHXY6882-19-20 09:14:0013.3[facility]annCHEM PANEL 2019-01-25 09:14:0024[facility] HermannCHEM GDWDD8189-33-40 09:14:63117Etazdleq HermannCHEM SPPRC1194-78-88 09:14:0081[facility]annCHEM KVTGL8739-46-37 09:14:002[facility]annCHEM RXCHN5712-79-21 09:14:003.3[facility]annCHEM QWCYF4392-31-29 09:14:000.60[facility]annCHEM DTDKW2924-57-65 09:14:10142 [facility]annMOLECULAR RVLFQPZZXG3910-43-46 16:22:00Negative (01/23/19 11:22 AM)[facility]annMOLECULAR PVQFTQLDKY3265-73-36 16:22:00Negative (01/23/19 11:22 AM)[facility]annCHEM ZXBNH4407-32-82 15:42:002.76[facility] HermannCHEM PANEL 2019-01-23 15:42:002.76[facility] HermannCHEM KKWQD7625-20-16 12:32:000.9[facility]annCHEM ESYCQ4224-62-08 12:32:000.9[facility]annCHEM SVZNE2025-35-93 10:50:002.0[facility]annCHEM AQBVK6041-29-42 10:50:62364Udfteift HermannCHEM QGSKO3565-11-05 10:50:0023[facility]annCHEM AYYVE9662-75-83 10:50:77445 [facility]annCHEM GTRPC8555-33-15 10:50:003.1[facility] HermannCHEM PANEL 2019-01-23 10:50:76651Atyxryzg HermannCHEM PLHPQ6889-03-07 10:50:005[facility]annCHEM WPFPC1800-18-09 10:50:000.50[facility]annCHEM INYWI9606-37-70 10:50:007.8[facility]annCHEM YAQSS5015-72-52 10:50:0083[facility]annCHEM IYHAI4984-93-41 10:50:0010.1[facility] OigzrljGKCVVIGBLP5329-96-55 10:50:000.2 [facility] HxtbrrxMKCOKWLZRN0072-99-24 10:50:000.8[facility]annHEMATOLOGY 2019-01-23 10:50:005.5[facility] FgbablvDXHLZRECSD1251-84-78 10:50:002.2[facility] CvkgicwWYMCIAWNLN7766-83-17 10:50:000.1[facility] OxtmfsnCHNKGWHRKX4578-43-77 10:50:0063.6[facility] MeksaknWUGCAXUAUF5052-83-79 10:50:008.9[facility] [place] UFOLDLZFJU9296-17-91 10:50:002.3[facility] XdmvbizYWMBDNDGAO4354-03-89 10:50:00 Normal (01/23/19 5:50 AM)[facility] RpdbwcnLHATIGIBQX7117-57-74 10:50:00Normal (01/23/19 5:50 AM)[facility] BjbqhcjROSWHHTERT6025-21-56 10:50:0025.1[facility] WmrrkhbOFWKUTAQPC4007-51-33 10:50:0013.1[facility] DtxolchIOMLLPJUAZ3852-59-28 10:50:90966Vhdxanhw NjzjmqiEUYRBTTHKH8230-54-34 10:50:007.7[facility] [place] XJYKPJYJDN7562-34-01 10:50:008.6[facility] VmhroczZWTGFMGQVW3893-37-50 10:50:00 10.0[facility] IofagdoLLSBQCWNWN9638-44-54 10:50:0034.6[facility]annHEMATOLOGY 2019-01-23 10:50:0028.7[facility] XrronndYQMCDKRYXV4351-01-73 10:50:0087.8[facility] IfvxntqJBYXWTGCIQ5685-60-90 10:50:00 Test Item Value Reference Range Interpretation Comments MCH (test code = MCH) 30.4 pg 27.0-31.0 [facility] CpeaiavTFZVVQUBLA2791-76-55 10:50:003.27[facility] HermannCHEM PANEL 2019-01-23 10:50:002.0[facility]annCHEM LFSFL2114-15-61 10:50:27078Wsgcmquh HermannCHEM ZFDCD0780-21-95 10:50:0023[facility] HermannCHEM EYZFX9194-66-28 10:50:96830Wgztlqlo HermannCHEM CNGWO4291-53-84 10:50:003.1[facility]annCHEM RZXKR0531-91-12 10:50:58791Zzmowpnn HermannCHEM WGDEJ6340-16-12 10:50:005 [facility]annCHEM XXCPD1407-59-23 10:50:000.50[facility]annCHEM PANEL 2019-01-23 10:50:007.8[facility] HermannCHEM TIEOG1662-91-43 10:50:0083[facility]annCHEM CWNOO4138-21-38 10:50:0010.1[facility] XkzdrjeXAGBXBPUJI5315-08-14 10:50:000.2[facility] SvbjezuOUCITJNRSA2938-02-55 10:50:000.8[facility] [place] WKFLPDUGJP4340-91-43 10:50:005.5[facility] IrazphiHIQTZQFRPW2810-20-72 10:50:002.2 [facility] WukxktcOJTGGBUWFR4218-55-60 10:50:000.1[facility]annHEMATOLOGY 2019-01-23 10:50:0063.6[facility] NhlbkzeAJWLJGZLHG8176-45-69 10:50:008.9[facility] PxxfspwHDRGAIVQPA0467-45-81 10:50:002.3[facility] QaqtmuoUGBWMGLEMV2230-71-56 10:50:00Normal (01/23/19 5:50 AM)[facility] SymsmupJNQYCIRAZD5552-06-34 10:50:00 Normal (01/23/19 5:50 AM)[facility] YkzluouXJLTUQVEAT9536-31-00 10:50:0025.1[facility] YeaifkwLOZZRXZJEB2600-11-83 10:50:0013.1[facility] BamavvrOXFHWQUYZC7552-89-93 10:50:82602Xrvyeaus FvdcmdpLOVKEQWOEE1826-22-52 10:50:007.7[facility] MTQNIQYBCM8021-97-43 10:50:008.6[facility] GfppiiiDYQRXABMBN6267-39-66 10:50:00 10.0[facility] ThmwxzgZQUTYTCGQH8232-85-92 10:50:0034.6[facility]annHEMATOLOGY 2019-01-23 10:50:0028.7[facility] LzlpulvEXHKLFGIAO7323-23-13 10:50:0087.8[facility] HtilugvEIUBNJBGKW0748-78-61 10:50:00 Test Item Value Reference Range Interpretation Comments MCH (test code = MCH) 30.4 pg 27.0-31.0 [facility] WylhodjOUVRXQMBZA6254-38-67 10:50:003.27[facility] HermannCHEM PANEL 2019-01-22 11:32:002.4[facility]annCHEM REPAX7931-10-69 11:32:002.4[facility] HermannCHEM FRYGU4116-70-97 09:04:003.0[facility]annCHEM ASIIX1397-01-76 09:04:003.0[facility]annURINE AND QATLP5311-36-08 07:14:00 Test Item Value Reference Range Interpretation Comments UA Spec Grav (test code = UA Spec 1.014 1 Grav) [facility] EPBRA7640-51-80 07:14:00 Test Item Value Reference Range Interpretation Comments UA pH (test code = UA pH) 6.0 1 5.0-8.0 [facility] EWIRS0566-04-48 07:14:00Negative (01/22/19 2:14 AM) [facility] ZCYQC1780-04-93 07:14:00Negative *NA*(01/22/19 2:14 AM) [facility] MWIIC4612-93-40 07:14:00Negative *NA*(01/22/19 2:14 AM) [facility] OEMWW6138-58-54 07:14:00Negative *NA*(01/22/19 2:14 AM) [facility] RQHEV6957-53-30 07:14:00Negative (01/22/19 2:14 AM) [facility] RFZSW7714-42-98 07:14:00Negative (01/22/19 2:14 AM) [facility] TWPBY9711-63-40 07:14:00Negative (01/22/19 2:14 AM) [facility] BZWWG2078-12-49 07:14:00<1[facility] GMPQM8899-17-44 07:14:0025[facility] PRSEG9443-84-32 07:14:002 [facility] NWBFO2382-49-82 07:14:00Light Yellow *NA*(01/22/19 2:14 AM)[facility] WTQJO4750-79-72 07:14:00Clear (01/22/19 2:14 AM) [facility] XNWOB7485-69-15 07:14:00 Test Item Value Reference Range Interpretation Comments UA Spec Grav (test code = UA Spec 1.014 1 Grav) [facility] SLSPR8073-28-92 07:14:00 Test Item Value Reference Range Interpretation Comments UA pH (test code = UA pH) 6.0 1 5.0-8.0 [facility] QMBJQ9329-56-24 07:14:00Negative (01/22/19 2:14 AM) [facility] KPGHF9367-35-94 07:14:00Negative *NA*(01/22/19 2:14 AM) [facility] PMBJM4077-54-09 07:14:00Negative *NA*(01/22/19 2:14 AM) [facility] CFCLY7043-74-13 07:14:00Negative *NA*(01/22/19 2:14 AM) [facility] KFWPH8599-01-77 07:14:00Negative (01/22/19 2:14 AM) [facility] LDJKE8956-42-51 07:14:00Negative (01/22/19 2:14 AM) [facility] AKQDV3071-43-28 07:14:00Negative (01/22/19 2:14 AM) [facility] LAODJ3646-76-21 07:14:00<1[facility] KVLLQ5429-18-82 07:14:0025[facility] DNNYB7107-49-51 07:14:002 [facility] KFGND6498-16-51 07:14:00Light Yellow *NA*(01/22/19 2:14 AM)[facility] MOPZC7154-15-79 07:14:00Clear (01/22/19 2:14 AM) [facility] DymremlVJSSA2062-37-74 05:16:000.90[facility] KvwexvaJBFGE3328-03-53 05:16:000.90[facility]annCHEM SZLBW4018-06-27 05:01:008.1[facility]annCHE[facility] BRQQE0292-85-63 05:01:00 Test Item Value Reference Range Interpretation Comments B/C Ratio (test code = B/C Ratio) 20 1 6-25 [facility] FWBKS6700-69-46 05:01:00 Test Item Value Reference Range Interpretation Comments A/G Ratio (test code = A/G Ratio) 1.0 1 0.7-1.6 [facility] PRZMP5297-05-10 05:01:004.1[facility]annCHEM PANEL 2019-01-22 05:01:006.90[facility] AeifqyxVWIIMSKMYIQCK3379-38-50 05:01:00Negative *NA*(01/22/19 12:01 AM)[facility] JpzbpuoPAVMDQKUDM1606-95-07 05:01:000.1[facility] AoyxvjbTJDSIHLUIS6721-59-87 05:01:000.7[facility] IirsymsWWCOZVTKKD3853-86-41 05:01:000.0[facility] GbzzomiEMLMDSAGDN4409-54-38 05:01:000.0[facility] FTGHXXZFRQ9703-10-04 05:01:000.9[facility] KutnybsHWFVZOCSQE6979-73-64 05:01:008.6 [facility] CqklhwcREVOQZLFEP0173-88-85 05:01:000.6[facility]annHEMATOLOGY 2019-01-22 05:01:0086.5[facility] GcgcgsmTXRFSXSSCN5022-66-58 05:01:005.7[facility] PnqnznaBFGPFENMCH6411-49-38 05:01:006.9[facility] UpczsooRPNTCVUIZH9343-28-66 05:01:009.9[facility] LiiwpxxRLFNLHKBFM4030-75-52 05:01:0032.8[facility] QFMKBHRTQX5056-18-22 05:01:0013.6[facility] HoafopaQFYZSUDCUT7553-12-78 05:01:00 443[facility] BkszpqxBDSCUZPKON5961-42-18 05:01:007.3[facility]annHEMATOLOGY 2019-01-22 05:01:0014.0[facility] EusrbtfRSVTZLMIFJ9032-36-54 05:01:004.85[facility] LetqlceUUKVFVJNYL7340-10-97 05:01:0042.7[facility] ZknyrxeUGORHXMZSN2210-01-78 05:01:00 Test Item Value Reference Range Interpretation Comments MCH (test code = MCH) 29.0 pg 27.0-31.0 [facility] MhtacxeFWNIYVGZDY8777-47-90 05:01:0088.2[facility]OLOG[facility] 2019-01-22 05:01:00 Test Item Value Reference Range Interpretation Comments INR (test code = INR) 0.96 1 0.85-1.17 [facility]QTGL0612[facility]51-42 05:01:00 Test Item Value Reference Range Interpretation Comments PT (test code = PT) 12.6 s 12.0-14.7 [facility]DrnkjofMIMDFDIRZM3150-36-70 05:01:00 Test Item Value Reference Range Interpretation Comments PTT (test code = PTT) 25.9 s 22.9-35.8 [facility] GFEEQMQ6330[facility]62-87 05:01:00Negative (01/22/19 12:01 AM) [facility] ZPQHZMX6818-92-22 05:01:00<0.02[facility] CARDIAC KHXRGLO0028-65-83 05:01:0049[facility]annCHEM RAVCW6041-20-02 05:01:000.6[facility]annCHEM XVJVW1812-09-09 05:01:66126Twldmcyh HermannCHEM OMGJX0968-30-53 05:01:004.0[facility]annCHE[facility] QEOMM6863-34-52 05:01:0017 [facility]annCHE[facility] GROVA8872-25-29 05:01:0025[facility]annCHE[facility] PANEL 2019-01-22 05:01:008.1[facility]annCHE[facility] CXKXQ6301-61-11 05:01:00 Test Item Value Reference Range Interpretation Comments B/C Ratio (test code = B/C Ratio) 20 1 6-25 [facility]annCHE[facility] UGNBI8953-14-94 05:01:00 Test Item Value Reference Range Interpretation Comments A/G Ratio (test code = A/G Ratio) 1.0 1 0.7-1.6 [facility]CHE[facility] NSQSH8682-90-85 05:01:004.1[facility]annCHEM PANEL 2019-01-22 05:01:006.90[facility] YmqzfxnTZNHKDFPPGQNY9336-92-07 05:01:00Negative *NA*(01/22/19 12:01 AM)[facility] ZhbaxqeZOEIXNBIYR8156-64-18 05:01:000.1[facility] TliofyqCAUMIBGSVJ8523-13-11 05:01:000.7[facility] MveklitWGFAKTNNNE3542-81-89 05:01:000.0[facility] TmbsgorTTNDMNEGRR2415-48-19 05:01:000.0[facility] AHCMJJEWHM3311-35-05 05:01:000.9[facility] MgzghfsTRAJSOTXYO6841-99-80 05:01:008.6 [facility] BonyklnXWRRBXLFMR6229-96-62 05:01:000.6[facility]annHEMATOLOGY 2019-01-22 05:01:0086.5[facility] ZxbyrvbTBKRTWDEOJ2443-98-08 05:01:005.7[facility] JbozoadEOLSUOTGHM9209-49-06 05:01:006.9[facility] FbpqhxjVHAFIYDPGW4917-84-99 05:01:009.9[facility] BsqxudsOPNIPJAQMM3075-39-07 05:01:0032.8[facility] SLYVXCHRSU0269-49-71 05:01:0013.6[facility] LcbsfmhOIMZDEFJCE0993-05-47 05:01:00 443[facility] NesimkiHGAZXNHHJV7555-70-89 05:01:007.3[facility]annHEMATOLOGY 2019-01-22 05:01:0014.0[facility] JvsbcagEMDSTJMFRD8997-30-36 05:01:004.85[facility] FngbtpwPGFBMLBRVL9876-05-56 05:01:0042.7[facility] CmsagosIFSSLAVEMZ6303-63-29 05:01:00 Test Item Value Reference Range Interpretation Comments MCH (test code = MCH) 29.0 pg 27.0-31.0 [facility] ZglcmfxXBTTFWMAHZ1486-67-84 05:01:0088.2[facility]annHEMATOLOGY 2019-01-22 05:01:00 Test Item Value Reference Range Interpretation Comments INR (test code = INR) 0.96 1 0.85-1.17 [facility]BATARAHQMK2196-08-38 05:01:00 Test Item Value Reference Range Interpretation Comments PT (test code = PT) 12.6 s 12.0-14.7 [facility]29 05:01:00 Test Item Value Reference Range Interpretation Comments PTT (test code = PTT) 25.9 s 22.9-35.8 [facility] [id number] 05:01:00Negative (01/22/19 12:01 AM) [facility] [id number] 05:01:00<0.02[facility] CARDIAC [id number] 05:01:0049[facility] HermannCHEM JKELR2476-18-05 05:01:000.6[facility] HermannCHEM GQCZG9182-89-18 05:01:24992Ivbuwreg HermannCHEM VRYON9967-01-99 05:01:004.0[facility] HermannCHEM OIQNY8899-51-13 05:01:0017 [facility]annCHEM XHVVJ2514-41-31 05:01:0025[facility] UricrzqVOH4Q0631-87-17 14:36:00 Test Item Value Reference Range Interpretation [...] 0.00-0.01 N code = ETOHU) Comprehensive Metabolic [id number] 14:36:00 Test Item Value Reference Range Interpretation [...] the [employer],http ://nkd ep.nih.gov Urinalysis [id number] 14:32:00 Test Item Value Reference Range Interpretation Comments Color (test code = COLOR) Yellow Yellow,Straw,Pl N yellow Clarity (test code = Clear Clear N CLAR) Specific Mobile (test 1.024 1.001-1.035 N code = SPGR) [...] code = Few /HPF BACT) CBC with Kbbualtnbjbd9171-55-11 14:21:00 Test Item Value Reference Range Interpretation [...] code = ALYMPH) 3.0 K/cumm 0.5-4.6 N [place] Abs (test code = AMONO) 0.5 K/cumm 0.0-1.2 N Eos Abs (test code = AEOS) 0.19 K/cumm 0.00-0.74 N Baso Abs (test code = ABASO) 0.1 K/cumm 0.00-0.21 N
[2021-10-30] MEDS ORDERED: ACETAMIN/CAFFEINE/BUTALB TAB PO ONE (07:57)
--- NOTE | 2021-10-30 08:03 | EDPHYS ---
Physician Documentation [facility] Name: Tiffany Quinn Age: 51 yrs Sex: Female : 1970 Arrival Date: 10/30/2021 Time: 07:36 Bed Waiting Private MD: ED Physician James Eric HPI: 10/30 08:15 This 51 yrs old Female presents to ER via Ambulatory with complaints of Headache. jr8 08:15 Associated signs and symptoms: Pertinent positives: nausea. The symptoms are alleviated jr8 by The patient has experienced similar episodes in the past, several times. The patient has not recently seen a physician. This is a 51-year-old female that presented to the emergency room with complaints of nausea and headache that started this morning. Was seen recently for the same thing and given Fioricet at the emergency room. At felt better after being medicated. Came today to see if she could get another round of Fioricet to help with her headache. Denies any other symptoms at this time.. Historical: - Allergies: 07:49 Pepcid; vg1 07:49 Toradol; vg1 - PMHx: 07:49 ADD; Anxiety; Bipolar disorder; vg1 - PSHx: 07:49 Cholecystectomy; hernia repair; vg1 - Immunization history:: Adult Immunizations up to date. - Social history:: Smoking status: Patient denies any tobacco usage or history of. ROS: 08:15 Eyes: Negative for injury, pain, redness, and discharge, ENT: Negative for injury, jr8 pain, and discharge, Neck: Negative for injury, pain, and swelling, Cardiovascular: Negative for chest pain, palpitations, and edema, Respiratory: Negative for shortness of breath, cough, wheezing, and pleuritic chest pain, Back: Negative for injury and pain, MS/Extremity: Negative for injury and deformity, Skin: Negative for injury, rash, and discoloration. 08:15 Abdomen/GI: Positive for nausea, Negative for abdominal pain, vomiting. 08:15 Neuro: Positive for headache. Exam: 08:15 Constitutional: This is a well developed, well nourished patient who is awake, alert, jr8 and in no acute distress. Neck: Trachea midline, no thyromegaly or masses palpated, and no cervical lymphadenopathy. Supple, full range of motion without nuchal rigidity, or vertebral point tenderness. No Meningismus. Cardiovascular: Regular rate and rhythm with a normal S1 and S2. No gallops, murmurs, or rubs. Normal PMI, no JVD. No pulse deficits. Respiratory: Lungs have equal breath sounds bilaterally, clear to auscultation and percussion. No rales, rhonchi or wheezes noted. No increased work of breathing, no retractions or nasal flaring. Abdomen/GI: Soft, non-tender, with normal bowel sounds. No distension or tympany. No guarding or rebound. No evidence of tenderness throughout. Skin: Warm, dry with normal turgor. Normal color with no rashes, no lesions, and no evidence of cellulitis. MS/ Extremity: Pulses equal, no cyanosis. Neurovascular intact. Full, normal range of motion. Neuro: Awake and alert, GCS 15, oriented to person, place, time, and situation. Cranial nerves II-XII grossly intact. Motor strength 5/5 in all extremities. Sensory grossly intact. Cerebellar exam normal. Normal gait. Vital Signs: 07:47 BP 117 / 91; Pulse 76; Resp 16; Temp 98.0; Pulse Ox 100% ; Weight 71.67 kg; Height 5 vg1 ft. 3 in. (160.02 cm); Pain 9/10; 07:47 Body Mass Index 27.99 (71.67 kg, 160.02 cm) vg1 MDM: 08:02 Patient medically screened. 8 08:02 Data reviewed: vital signs, nurses notes, and as a result, I will discharge patient. jr8 Data interpreted: Pulse oximetry: on room air is 100 %. Interpretation: normal. Counseling: I had a detailed discussion with the patient and/or guardian regarding: the historical points, exam findings, and any diagnostic results supporting the discharge/admit diagnosis, the need for outpatient follow up, a family practitioner, to return to the emergency department if symptoms worsen or persist or if there are any questions or concerns that arise at home. Administered Medications: 07:57 Drug: Fioricet - Esgic 325 mg-40 mg-50 mg 1 tab-caps Route: PO; vg1 07:57 Follow up: Response: Medication administered at discharge. vg1 Disposition: 17:02 Co-signature as Attending Physician, James Eric MD. ma2 Disposition Summary: 10/30/21 08:03 Discharge Ordered Location: Home jr8 Problem: new jr8 Symptoms: have improved jr8 Condition: Stable jr8 Diagnosis - Headache jr8 Followup: jr8 - With: Private Physician - When: 2 - 3 days - Reason: Recheck today's complaints, Continuance of care, Re-evaluation by your physician Discharge Instructions: - Discharge Summary Sheet jr8 - General Headache Without Cause jr8 Forms: - Medication Reconciliation Form jr8 - Thank You Letter jr8 - Antibiotic Education jr8 - Prescription Opioid Use jr8 Signatures: Guanako Palomino PA PA jr8 James Eric MD MD ma2 Ibeth Charles RN RN vg1
--- NOTE | 2021-10-30 08:03 | ER ---
Nurse's Notes [facility] Name: Tiffany Quinn Age: 51 yrs Sex: Female : 1970 Arrival Date: 10/30/2021 Time: 07:36 Bed Waiting Private MD: Diagnosis: Headache Presentation: 10/30 07:47 Chief complaint: Patient states: was seen in ED yesterday and was told to come back if vg1 still wasn't feeling well. States h/a is 9/10 and has nausea. Coronavirus screen: Vaccine status: Patient reports receiving the 2nd dose of the covid vaccine. Client denies travel out of the [place] in the last 14 days. Ebola Screen: Patient negative for fever greater than or equal to 101.5 degrees Fahrenheit, and additional compatible Ebola Virus Disease symptoms. Initial Sepsis Screen: Does the patient meet any 2 criteria? No. Patient's initial sepsis screen is negative. Does the patient have a suspected source of infection? No. Patient's initial sepsis screen is negative. Risk Assessment: Do you want to hurt yourself or someone else? Patient reports no desire to harm self or others. Onset of symptoms was October 30, 2021. 07:47 Method Of Arrival: Ambulatory [facility] 07:47 Acuity: MANUEL 4 vg1 Triage Assessment: 07:49 Headache History: The patient has had previous headaches and this one is similar to vg1 previous episodes. General: Appears in no apparent distress. comfortable, Behavior is calm, cooperative. Pain: Complains of pain in head Pain currently is 9 out of 10 on a pain scale. Pain began gradually, Also complains of nausea. Neuro: Level of Consciousness is awake, alert, obeys commands, Oriented to person, place, time, situation, Reports headache. GI: Reports nausea. Historical: - Allergies: 07:49 Pepcid; vg1 07:49 Toradol; vg1 - PMHx: 07:49 ADD; Anxiety; Bipolar disorder; vg1 - PSHx: 07:49 Cholecystectomy; hernia repair; vg1 - Immunization history:: Adult Immunizations up to date. - Social history:: Smoking status: Patient denies any tobacco usage or history of. Screenin:13 Abuse screen: Denies threats or abuse. Nutritional screening: No deficits noted. vg1 Tuberculosis screening: No symptoms or risk factors identified. Fall Risk None identified. Vital Signs: 07:47 BP 117 / 91; Pulse 76; Resp 16; Temp 98.0; Pulse Ox 100% ; Weight 71.67 kg; Height 5 vg1 ft. 3 in. (160.02 cm); Pain 9/10; 07:47 Body Mass Index 27.99 (71.67 kg, 160.02 cm) vg1 ED Course: 07:36 Patient arrived in ED. ds1 07:49 Triage completed. vg1 07:49 Arm band placed on. vg1 08:02 Guanako Palomino PA is PHCP. jr8 08:02 James Eric MD is Attending Physician. jr8 08:13 Patient has correct armband on for positive identification. vg1 08:13 No provider procedures requiring assistance completed. Patient did not have IV access vg1 during this emergency room visit. Administered Medications: 07:57 Drug: Fioricet - Esgic 325 mg-40 mg-50 mg 1 tab-caps Route: PO; vg1 07:57 Follow up: Response: Medication administered at discharge. vg1 Outcome: 08:03 Discharge ordered by . jr8 08:13 Discharged to home ambulatory. vg1 08:13 Condition: good 08:13 Patient left the ED. vg1 Signatures: Neelima Rivera ds1 Guanako Palomino PA PA jr8 Garcia, Victoria, RN RN vg1
[2021-10-30 08:19] VITALS: BP 117/91; TEMP 98; O2SAT 100
== END 2021-10-30 08:13 | disposition home or self-care (01) ==
LOC: ER 07:33 → SUPCPDRO 07:33 → ER 08:13
DX: R51.9 Headache, unspecified (principal); Z88.5 Allergy status to narcotic agent; Z88.8 Allergy status to other drugs, medicaments and biological substances
CPT/HCPCS: 99282

== ENCOUNTER 2021-10-31 05:54 | Emergency (ER) | payer OTHER ==
--- OUTSIDE RECORDS SUMMARY | 2021-10-31 06:01 | XMS REPORT | Continuity of Care Document ---
:1970 Author Organization [facility] t Address [address] [place] [address] Care Team Providers Name Role Phone UNKNOWN [...] Number Effective Date Expiration Date S nasim [facility] [place] - [phone] 2020 [employer] 00:00:00 (MEDICARE REPLACEMENT/ADVANT AGE - HMO) Problems Condition Condition Condition Status Onset Resolution Last Treating Co mments Source Name Details Category Date Date Treatment Clinician Date LOW PB Diagnosis Active 2019-01-22 Mem oria 01-21 01:52:00 l LOW PB 00:00: [place] 00 Active 01/21/2019 [facility] INFECTIOUS Diagnosis Active 2019-02-06 Memoria GASTROENTE 01-21 08:58:00 l RITIS AND 00:00: [place] COLITIS INFECTIOUS 00 GASTROENTE RITIS AND COLITIS Active 01/21/2019 [facility] Irregular Irregular Disease Active Uni vers menstrual menstrual 8-15 ity of cycle cycle 00:00: [address] Skin Skin Disease Active Univers lesion lesion 8-15 ity of 00:00: [address] Psychiatri Psychiatri Disease Active U nivers c disorder c disorder 8-15 it y of 00:00: [address] Well woman Well woman Disease Active U nivers exam with exam with 8-15 ity of routine routine 00:00: [place] gynecologi gynecologi 00 Me dical nicky exam nicky exam Branch INFECTIOUS Diagnosis Active 2019-02-06 Memoria GASTROENTE 08:58:00 l RITIS AND Yonis COLITIS, INFECTIOUS GASTROENTE RITIS AND COLITIS, Active [facility] Allergies, Adverse Reactions, Alerts Allergy Allergy Status Severity Reaction(s) Onset Inactive Treating Comm ents Source Name Type Date Date Clinician promanaa DA Active ID ANXIETY [facility] zine 1-01 Clear 00:00: Catherine 00 [facility] prometha DA Active U [facility] zine 7-04 Clear 00:00: Catherine 00 [facility] NO KNOWN Drug Active Univers ALLERGIE Class ity of S [facility] Phenerga Phenerga Active [place] a n n l [place] Social History Social Habit Start Date Stop Date Quantity Comments Source History of Cigarette Smoker Universi ty of tobacco use [facility] Tobacco Comment 2-3 cigs a day Unive rsity of [facility] Exposure to Not sure University of SARS-CoV-2 [facility] (event) [place] Tobacco use and 2016-06-08 2016-06-08 Never used Universit y of exposure 00:00:00 00:00:00 [facility] Alcohol intake 2016-06-08 2016-06-08 0 /d University of 00:00:00 00:00:00 [facility] Sex Assigned At [birth year] Universit y of 00:00:00 00:00:00 [facility] Smoking Status Start Date Stop Date Source [...] of 1,000 mg in 08:30: 08:01 Piggyback, [place] NaCl 0.9% 00 :00 ONCE, 1 Medical (NS) 50 mL dose, On Bran h MINI-BAG Wed09/10/21 at 0230, Administer over 30 Minutes, 50 mL
Reas on for Anti-Infec tive: Documented Infection< br>Documen ngozi Infection Site: Urine<br&g t;Duration of Therapy: Other (see Comments) ondansetron 2020-10 No 4mg 4 mg, Slow Univers (ZOFRAN 11-10 IV Push, ity of (PF)) 06:45: 05:54 ONCE, 1 [place] injection 4 00 :00 dose, On Medi nicky mg Wed [place] 09/10/21 at 0045, RANDA NaCl 0.9% 2020-10- No 1000mL at 999 Uni vers (NS) bolus 11-10 mL/hr, ity of infusion 05:30: 05:30 1,000 mL, Joe as 1,000 mL 00 :00 IV Medical Infusion, Branch ONCE, 1 dose, On 09/09/21 at 2330, RANDA amoxicillin 2020-10 Yes [id number] 500mg Take 1 Univers 500 mg 11-10 capsule by ity of capsule 00:00: mouth 3 [place] 00 (three) Medical times Branch daily. ondansetron 2019-10- No 4mg 4 mg, Univ ers (ZOFRAN-ODT 12-01 Oral, ity of ) 15:15: 14:16 ONCE, 1 [place] disintegrat 00 :00 dose, Mon Med ical ing tablet 09/30/20 at [facility] nc 4 mg 0915, Routine ondansetron 2019-10 2020- No 4mg 4 mg, [facility] (ZOFRAN-ODT 2-07 12-07 Oral, ity of ) 14:30: 13:32 ONCE, 1 [place] disintegrat 00 :00 dose, Mon Med ical ing tablet 09/30/20 at [facility] 4 mg 0830, Routine ondansetron 2019-10 Yes [id number] 4mg Take 1 Univers 4 mg 2-07 tablet by ity of disintegrat 00:00: mouth [place] ing tablet 00 every 8 Medica l (eight) Branch hours as needed for Nausea and Vomiting (N/V). ondansetron 2019-10 Yes [id number] 4mg Take 1 Univers 4 mg 2-07 tablet by ity of disintegrat 00:00: mouth [place] ing tablet 00 every 8 Medica l (eight) Branch hours as needed for Nausea and Vomiting (N/V). ondansetron 2019-10 Yes [id number] 4mg Take 1 Univers 4 mg 2-07 tablet by ity of disintegrat 00:00: mouth [place] ing tablet 00 every 8 Medica l (eight) Branch hours as needed for Nausea and Vomiting (N/V). ondansetron 2019-10 Yes [id number] 4mg Take 1 Univers 4 mg 2-07 tablet by ity of disintegrat 00:00: mouth [place] ing tablet 00 every 8 Medica l (eight) Branch hours as needed for Nausea and Vomiting (N/V). ciprofloxac Yes 500 mg = 1 Memoria in 500 mg 4-04 tab, PO, l oral tablet 17:35: [id number], X [place] 00 4 day, # 8 tab, 0 Refill(s) Ondansetron 2019 Yes 4 mg = 1 Me moria 4 MG Oral 4-04 tab, PO, l Tablet 17:35: Q6H, PRN [place] [Zofran] 00 Nausea/Vom iting, # 20 tab, [...] 4-04 tab, PO, l oral tablet 17:35: [id number], X [place] 00 4 day, # 8 tab, 0 Refill(s) Ondansetron 2019- Yes 4 mg = 1 Me moria 4 MG Oral 4-04 tab, PO, l Tablet 17:35: Q6H, PRN [place] [Zofran] 00 Nausea/Vom iting, # 20 tab, [...] 4-03 (Same as: l 13:26: K-Dur 20) [place] 00 "Do Not Crush" Give with food and full glass of water For patients unable to swallow tablet, dissolve in one half glass of water. Allow about 2 minutes for the tablets to disintegra te. Stir before giving to prepare slurry and administer . Please exclude Patient s with feeding tube less than 14 [place] (Dobhoff, J-tube etc) and pediatric and [...] s with feeding tube less than 14 [place] (Dobhoff, J-tube etc) and pediatric and [...] ia - (Same As: l 18:00: KlonoPIN) [place] 00 Clonazepam No Notes: Memor ia 4- (Same As: l 18:00: KlonoPIN) [place] 00 Flagyl No Notes: Memoria - (Same as: l 15:00: Flagyl) [place] Take with food/ avoid alcohol Cipro No Notes: May Memori a - interfere l 15:00: w/enteral Yonis 00 feedings - Take 1 hr before or 2 hrs after antacids, dairy pdt & minerals. On empty stomach. Flagyl No Notes: Memoria 4- (Same as: l 15:00: Flagyl) [place] 00 Take with food/ avoid alcohol Cipro [...] MG 4-01 PO, l Oral Tablet 14:20: [id number], 0 [place] [Cipro] 00 Refill(s) potassium 2019 Yes 40 mEq, Memor ia chloride 20 4-01 PO, ONCE, l mEq oral 14:20: 0 [place] tablet, 00 Refill(s) extended release Metronidazo No 500 mg, Mem oria le 500 MG 4-01 PO, l Oral Tablet 14:20: [id number], 0 H ermann [Flagyl] 00 Refill(s) Ciprofloxac No 500 mg, Mem oria in 500 MG 4-01 PO, l Oral Tablet 14:20: [id number], 0 [place] [Cipro] 00 Refill(s) Potassium No Notes: Memori [...] s with feeding tube less than 14 [place] (Dobhoff, J-tube etc) and pediatric and [...] s with feeding tube less than 14 [place] (Dobhoff, J-tube etc) and pediatric and [...] tab, PO, l Tablet 21:08: BID, 0 [place] [Risperdal] 00 Refill(s) Strattera Yes 0.5 mg/kg, [...] 01-22 Route: IM, l 09:47: Drug form: [place] 00 PDR/INJ, PRN, Dosing Weight 75.994, kg, PRN Blood Glucose Results, Start date: 01/22/19 4:47:00 CDT, Duration: 30 day, Stop date: 02/21/19 4:46:00 CDT Dextrose No 12.5 gm, Memor ia 50% Syringe 01-22 25 mL, l 09:47: Route: [place] 00 IVP, Drug Form: INJ, Dosing Weight 75.994, kg, PRN, PRN Blood Glucose Results, Start date: 01/22/19 4:47:00 CDT, Duration: 30 day, Stop date: 02/21/19 4:46:00 CDT Zofran 0 No Notes: Memoria 3-31 (Same as: l 08:56: Zofran) Yonis MEDICATION WASTE Product Size: 4 mg Product Wasted: ___ mg Zofran No Notes: Memoria 3-31 (Same as: l 08:56: Zofran) oYnis MEDICATION WASTE Product Size: 4 mg Product [...] Memoria 3-31 (Same as: l 06:10: Zosyn) [place] 00 Dosing based on Piperacill in component [...] moria IV 3-31 1,000 l 05:44: ml/hr, [place] 00 Infuse Over: 1 hr, Route: IV, [...] Memoria 3-31 (Same as: l 04:52: Zofran) [place] 00 MEDICATION WASTE Product Size: 4 mg Product Wasted: ___ mg Saline No Notes: Memoria Flush 0.9% 3-31 Same as: l 04:52: BD [place] 00 Posiflush Sterile NS (Bolus) No 1,000 [...] tablet by ity of HYDROCHLORI 00:00: mouth [place] DE,) 4 mg 00 every 8 Medical tablet (eight) Branch hours. ondansetron 2017-0 Yes 4mg Take 1 Univ ers (ZOFRAN, 1-27 tablet by ity of HYDROCHLORI 00:00: mouth [place] DE,) 4 mg 00 every 8 Medical tablet (eight) Branch hours. ibuprofen 2016-0 Yes 200mg Take 200 Uni vers (ADVIL) 200 8-15 mg by ity of mg tablet 19:02: mouth [place] [address] every 6 Medical (six) Branch hours as needed. CLONAZEPAM 2016-0 Yes Take by Uni vers (KLONOPIN 8-15 mouth. ity of ORAL) 19:02: [address] Branch CITALOPRAM 2016-0 Yes Take by Uni vers HYDROBROMID 8-15 mouth. ity of E 19:02: [place] (CITALOPRAM 27 Medical ORAL) Branch ibuprofen 2016-0 Yes 200mg Take 200 Uni vers (ADVIL) 200 8-15 mg by ity of mg tablet 14:02: mouth [place] [address] every 6 Medical (six) Branch hours as needed. CLONAZEPAM 2016-0 Yes Take by Uni vers (KLONOPIN 8-15 mouth. ity of ORAL) 14:02: [address] Branch CITALOPRAM 2016-0 Yes Take by Uni vers HYDROBROMID 8-15 mouth. ity of E 14:02: [place] (CITALOPRAM 27 Medical ORAL) Branch ibuprofen 2016-0 Yes 200mg Take 200 Uni vers (ADVIL) 200 8-15 mg by ity of mg tablet 14:02: mouth [place] [address] every 6 Medical (six) Branch hours as needed. CLONAZEPAM 2016-0 Yes Take by Uni vers (KLONOPIN 8-15 mouth. ity of ORAL) 14:02: [address] Branch CITALOPRAM 2016-0 Yes Take by Uni vers HYDROBROMID 8-15 mouth. ity of E 14:02: [place] (CITALOPRAM 27 Medical ORAL) Branch ibuprofen 2016-0 Yes 200mg Take 200 Uni vers (ADVIL) 200 8-15 mg by ity of mg tablet 14:02: mouth [place] [address] every 6 Medical (six) Branch hours as needed. CLONAZEPAM 2016-0 Yes Take by Uni vers (KLONOPIN 8-15 mouth. ity of ORAL) 14:02: [place] 27 Medical Branch CITALOPRAM Yes Take by Uni vers HYDROBROMID 8-15 mouth. ity of E 14:02: [place] (CITALOPRAM 27 Medical ORAL) Branch misoprostol Yes [...] ity of mg tablet 00:00: every 6 [place] 00 (six) Medical hours as Branch needed [...] ity of mg tablet 00:00: every 6 [place] 00 (six) Medical hours as Branch needed for Pain (scale 4-6). naproxen 2014-10 Yes 500mg Take 1 Tab Un parul (NAPROSYN) 1-16 by mouth 2 ity of 500 mg 00:00: (two) [place] tablet 00 times Medical daily with Branch meals. Vital Signs Vital Name Observation Time Observation Value Comments Source Systolic blood 2021-09-10 08:01:00 138 mm[Hg] [facility] Diastolic blood 2021-09-10 08:01:00 97 mm[Hg] [facility] Heart rate 2021-09-10 08:01:00 87 /min [facility] Respiratory rate 2021-09-10 08:01:00 20 /min [facility] Oxygen saturation in 2021-09-10 08:01:00 98 /min [facility] Arterial blood by [facility] [place] Pulse oximetry Branch Body temperature 2021-09-10 04:28:51 37.17 Ruthann [facility] Body height 2021-09-10 04:26:00 154.9 cm [place]undy [...] 99 /min University of Arterial blood by [place] [employer] nicky Pulse oximetry Branch Body weight 2021-09-09 [...] /min University of Arterial blood by [place] [employer] nicky Pulse oximetry Branch Body temperature 2020-09-30 [...] /min University of Arterial blood by [place] [employer] Acceleration nicky Pulse oximetry Branch Body temperature 2020-09-30 13:26:00 37.22 Ruthann [facility] Respiratory rate 2020-09-30 13:26:00 16 /min [facility] Body weight 2020-09-30 13:26:00 72.576 kg [facility] BMI 2020-09-30 13:26:00 28.80 kg/m2 [facility] Temperature Oral (F) 2019-01-28 01:16:00 98.6 F [facility] [place] Systolic (mm Hg) 2019-01-28 01:16:00 Estrada rial [place] Diastolic (mm Hg) 2019-01-28 01:16:00 Mem orial [place] Heart Rate 2019-01-28 01:16:00 [facility] [place] Respitory Rate 2019-01-28 01:16:00 Memori al [place] Systolic (mm Hg) 2019-01-27 20:42:00 Estrada rial [place] Diastolic (mm Hg) 2019-01-27 20:42:00 Mem orial [place] Heart Rate 2019-01-27 20:42:00 [facility] [place] Respitory Rate 2019-01-27 20:42:00 Memori al [place] Temperature Oral (F) 2019-01-27 20:42:00 98.5 F [facility] [place] Systolic (mm Hg) 2019-01-27 17:00:00 Estrada rial [place] Diastolic (mm Hg) 2019-01-27 17:00:00 Mem orial [place] Temperature Oral (F) 2019-01-27 17:00:00 98.5 F [facility] [place] Heart Rate 2019-01-27 17:00:00 [facility] [place] Respitory Rate 2019-01-27 [facility] 2019-01-22 14:35:00 157.48 cm [facility] BMI Calculated 2019-01-22 14:35:00 Memori al [place] Weight 2019-01-22 14:35:00 [facility] 2019-01-22 04:34:00 [facility] Procedures Procedure Date / Time Performing Clinician Source Performed URINALYSIS 2021-09-10 06:03:00 Neena Bradford o f [facility] URINE DRUG (IMMUNOASSAY) 2021-09-10 06:03:00 Neena Bradford [facility] Medical [facility] nch SCREEN W/O REFLEX XR CHEST 1 VW 2021-09-10 04:57:30 Neena Bradford [facility] CREATINE KINASE 2021-09-10 04:39:00 Neena Bradford [facility] MAGNESIUM 2021-09-10 04:39:00 Sanchez Neena [facility] TROPONIN I 2021-09-10 04:39:00 Neena Bradford [facility] COMP. METABOLIC PANEL 2021-09-10 04:39:00 Neena Bradford [facility] ([id number]) [facility] CBC WITH DIFF 2021-09-10 04:39:00 Sanchez [facility] PROTHROMBIN TIME / INR 2021-09-10 04:39:00 Neena Bradford [facility] ACTIVATED PARTIAL 2021-09-10 04:39:00 [facility] PRO-BNP 2021-09-10 04:39:00 Neena Bradford [facility] COVID-19 (ID NOW RAPID 2021-09-10 04:39:00 Neena Bradford [facility] TESTING) Medical Branch TROPONIN I 2021-09-09 21:49:00 Luanne Dumont [facility] COMP. METABOLIC PANEL 2021-09-09 21:49:00 Luanne Dumont [facility] ([id number]) Medical Branch LITHIUM 2021-09-09 21:49:00 Luanne Dumont [facility] CBC WITH DIFF 2021-09-09 21:49:00 DumontLuanne buenrostro [facility] CONSENT/REFUSAL FOR 2021-09-09 19:51:22 Doctor Unassigned, No Un [facility] DIAGNOSIS AND TREATMENT Name Medical Branch URINALYSIS 2020-09-30 13:27:00 Singer Chuy [facility] ADC,CLC OR LCC ONLY - 2020-09-30 13:27:00 Chuy Jackson [facility] INFLUENZA A & B DIRECT Medical B ranch ANTIGEN COVID-19 (ID NOW RAPID 2020-09-30 13:27:00 Chuy Jackson [facility] [place] TESTING) Medical Branch Encounters Start End Encounter Admission Attending Care Care Encounter Source Date/Time Date/Time Type Type Clinicians Facility Department ID 2019-01-22 Inpatient E [facility] MED [id number] [facility] W 04:39:00 2021-10-25 2021-10-25 Emergency EM OLIVER Reynaga [id number] [facility] 01:01:00 01:57:00 Lulú [id number] [facility] 2021-09-09 2021-09-10 [facility] [id number] Univers 22:20:00 03:02:00 Neena WALSH [id number] i ty of [place] 4.2.7.2.686 [facility] [id number] [address] 2021-09-09 2021-09-10 Emergency Lise BRADFORD [facility] ERT [id number] Univers 22:20:00 03:02:00 NEENA tubbs [facility] 2021-09-09 2021-09-10 Emergency [facility] [id number] Univers 22:20:00 03:02:00 NEENA tubbs [facility] 2021-09-09 2021-09-09 Emergency Julia [facility] [id number] Univers 14:07:00 17:35:00 Luanne WALSH [id number] i ty [facility] 4.2.7.2.686 [facility] [id number] [address] 2021-09-09 2021-09-09 Orders Doctor BELKYS [id number] Univers 00:00:00 00:00:00 Only Unassigned, LANA 350.1.13.10 ity of [facility] 4.2.7.2.686 Joe as [id number] [place] [address] Branch 2020-09-30 2020-09-30 Emergency Singer [facility] [id number] Univers 07:22:00 08:18:00 Chuy Walsh [id number] i ty of [place] 4.2.7.2.686 [facility] [id number] [place] [address] Branch 2020-09-30 2020-09-30 Emergency [facility] [id number] 07:22:00 08:18:00 Chuy Walsh 350.1.13.10 [place] 4.2.7.2.686 [place] [id number] 2020-09-30 2020-09-30 Emergency X SINGER [facility] ERT [id number] Univers 07:22:00 07:22:00 CHUY tubbs [facility] 2020-04-05 2020-04-05 Outpatient Humaira-Mbayo VFP VFP [id number] [facility] 05:44:00 05:44:00 _A_AH 21319 Family Practic e 2020-04-05 2020-04-05 Outpatient Humaira-Mbayo VFP VFP [id number] [place] 05:44:00 05:44:00 _A_AH 77366 Family Practic e 2020-04-05 2020-04-05 Outpatient Humaira-Mbayo VFP VFP [id number] [facility] 05:44:00 05:44:00 _A_AH 33957 Family Practic e 2020-04-05 2020-04-05 Outpatient Humaira-Mbayo VFP VFP [id number] [place] 05:44:00 05:44:00 _A_AH 93005 Family Practic e 2020-03-04 2020-03-14 Inpatient 3 [facility] PSY [id number] 15:38:00 15:25:00 [facility] 2019-12-13 2019-12-13 Outpatient Humaira-Mbayo VFP VFP [id number] [facility] 07:22:00 07:22:00 _A_AH 07994 Family Practic e 2019-01-22 2019-01-28 Inpatient [facility] [id number] Memoria 04:33:00 04:40:00 martin Somers 00 l [facility] 2018-02-21 2018-02-20 Inpatient E [facility] MED [id number] 14:48:00 13:18:00 [facility] Results Test Description Test Time [...] 0.1-0.8 N UA RFLX MICR CULT IF [id number] 03:42:00 Test Item Value Reference Range Interpretation [...] /HPF NONE A code = AMORU) TROPONIN-I [id number] 01:52:00 Test Item Value Reference Range Interpretation Comments TROPONIN-I RAPID 0.00 ng/mL 0.00-0.08 N Performed b y certified (test code = switchboard operator receptionist at [facility]) Med Ctr Negative: <= 0.0 8 Positive: [...] changes in trop onin levels characteristic of ID. BASIC METABOLIC [id number] 01:47:00 Test Item Value Reference Range Interpretation [...] code = POCGLU) 110 MG/DL UA DIPSTICK [id number] 01:32:00 Test Item Value Reference Range Interpretation Comments UA GLUCOSE DIPSTIC POC NEGATIVE NEGATIVE (test code = GLUUP) UA BILIRUBIN DIPSTICK NEGATIVE NEGATIVE (test code = BILU) UA KETONE DIPSTICK POC 1+ NEGATIVE A (test code = KETUP) UA SPECIFIC GRAVITY (test 1.030 1.005-1.030 N code = SGU) UA BLOOD DIPSTIC POC NEGATIVE NEGATIVE Perform ed by (test code = BLUP) certified switchboard operator receptionist at [facility] UA PH DIPSTIC POC (test 5 5.0-7.0 N code = PHUP) UA PROTEIN DIPSTICK POC NEGATIVE NEGATIVE (test code = DPROUP) UA UROBILINIOGEN QUAL NORMAL 0.2-1.0 (test code = UROQL) UA NITRITE DIPSTICK POC NEGATIVE Negative (test code = NITUP) UA LEUKOCYTE ESTERASE W 2+ NEGATIVE A REFLEX (test code = LEUUR) TROPONIN [id number] 05:26:53 Test Item Value Reference Interpretation Comments Range TROPONIN I (test 0.003 ng/mL See_Comment [Automated code = 2832780544) message] The system which generated this result [...] biotin. Lab Interpretation Normal (test code = 86959-7) [id number] 05:24:16 Test Item Value Reference Range Interpretation Comments NT-proBNP (test code 35 pg/mL See_Comment [Autom ated = 4447812082) message] The system which generated this result transmitted reference range : <=125. The reference range was not used to interpret this result as normal/abnormal . PERRY (test code = PERRY) Biotin has been reported to cause a negative bias, interpret results relative to patient's use of biotin. Lab Interpretation Normal (test code = 57801-5) [facility] 05:16:51 Test Item Value Reference Range Interpretation Comments MAGNESIUM (test code = 5954838072) 1.8 mg/dL 1.7-2.4 Lab Interpretation (test code = Normal 13301-1) [facility]. METABOLIC PANEL ([id number])2021-09-10 05:16:31 Test Item Value Reference Range Interpretation Comments NA (test code = 139 mmol/L 135-145 8041763236) K (test code = 4.0 mmol/L 3.5-5.0 7329308349) CL (test code = 108 mmol/L 98-108 6877968473) CO2 TOTAL (test code 25 mmol/L 23-31 = 1061807731) AGAP (test code = 2-16 1234647115) BUN (test code = 14 mg/dL 7-23 0104302711) GLUCOSE (test code = 88 mg/dL 70-110 7736457759) CREATININE (test code 0.89 mg/dL 0.50-1.04 = 0089210303) TOTAL BILI (test code 0.5 mg/dL 0.1-1.1 = 6517030968) CALCIUM (test code = 10.3 mg/dL 8.6-10.6 8381751371) T PROTEIN (test code 6.9 g/dL 6.3-8.2 = 9389226399) ALBUMIN (test code = 4.3 g/dL 3.5-5.0 6070385381) ALK PHOS (test code = 72 U/L 34-122 0126613288) ALTv (test code = 17 U/L 5-35 1742-6) AST(SGOT) (test code 29 U/L 13-40 = 0192890152) eGFR (test code = mL/min/1.73m2 4411759791) PERRY (test code = PERRY) Association of [...] or urine or abnormalities in imaging tests). [facility] [id number] 05:16:16 Test Item Value Reference Range Interpretation Comments CK (test code = 3478243120) 267 U/L 33-194 H Lab Interpretation (test code = Abnormal 93794-4) [facility] THRMPLAS [id number] 05:05:32 Test Item Value Reference Range Interpretation [...] seconds. Lab Interpretation Normal (test code = 68253-4) [facility] / [id number] 05:03:30 Test Item Value Reference Range Interpretation [...] tions. Lab Interpretation (test Normal code = 47879-2) [facility] WITH [id number] 04:57:13 Test Item Value Reference Range Interpretation [...] RDW-SD (test code = 41.2 fL 39.0-49.9 84015-1) RDW-CV (test code = 13.0 % 12.0-15.5 788-0) PLT (test code = See_Comment H [Automated 777-3) message] The sy stem which generated this result transmitted reference range : 166 - 358 10*3/ ?L. The reference r katie was not used to interpret this result as normal/abnormal . MPV (test code = 9.6 fL 9.5-12.9 88904-4) NRBC/100 WBC (test See_Comment [Automat ed code = 2101508917) message] The system which generated this result transmitted reference range : 0.0 - 10.0 /100 WBCs. The refer ence range was not u sed to interpret th is result as normal/abnormal . NRBC x10^3 (test code <0.01 See_Comment [Auto mated = 7218801711) message] The s [employer] which generated this result transmitted reference range : 10*3/?L. The reference range was not used to interpret this result as normal/abnormal . GRAN MAT (NEUT) % 61.9 % (test code = 770-8) IMM GRAN % (test code 0.30 % = 8959947433) LYMPH % (test code = 26.0 % 736-9) MONO % (test code = 9.5 % 5905-5) EOS % (test code = 1.6 % 713-8) BASO % (test code = 0.7 % 706-2) GRAN MAT x10^3(ANC) 5.91 10*3/uL 1.88-7.09 (test code = 1689252063) IMM GRAN x10^3 (test 0.03 10*3/uL 0.00-0.06 code = 8145234895) LYMPH x10^3 (test code 2.48 10*3/uL 1.32-3.29 = 731-0) MONO x10^3 (test code 0.91 10*3/uL 0.33-0.92 = 742-7) EOS x10^3 (test code = 0.15 10*3/uL 0.03-0.39 711-2) BASO x10^3 (test code 0.07 10*3/uL 0.01-0.07 = 704-7) Lab Interpretation Abnormal (test code = 88719-6) [facility] [id number] 22:24:55 Test Item Value Reference Interpretation Comments Range TROPONIN I (test 0.002 ng/mL See_Comment [Automated code = 6013107105) message] The system which generated this result [...] biotin. Lab Interpretation Normal (test code = 62904-9) [facility] 22:24:34 Test Item Value Reference Range Interpretation Comments Roby (test code = <0.2 0.6-1.2 L 8964570317) PERRY (test code = PERRY) Toxic Range: ? Greater than 1.2 mmol/L Lab Interpretation (test Abnormal code = 84200-8) [facility] [facility] ([id number])2021-09-09 22:13:54 Test Item Value Reference Range Interpretation Comments NA (test code = 139 mmol/L 135-145 9795956184) K (test code = 4.0 mmol/L 3.5-5.0 9419431406) CL (test code = 105 mmol/L 98-108 9880412292) CO2 TOTAL (test code 26 mmol/L 23-31 = 9309728402) AGAP (test code = 2-16 2745095732) BUN (test code = 11 mg/dL 7-23 9941342413) GLUCOSE (test code = 109 mg/dL 70-110 6189788150) CREATININE (test code 0.71 mg/dL 0.50-1.04 = 2963681024) TOTAL BILI (test code 0.6 mg/dL 0.1-1.1 = 8919958339) CALCIUM (test code = 10.4 mg/dL 8.6-10.6 0520821114) T PROTEIN (test code 7.6 g/dL 6.3-8.2 = 5383029707) ALBUMIN (test code = 4.7 g/dL 3.5-5.0 5140510857) ALK PHOS (test code = 78 U/L 34-122 4023658708) ALTv (test code = 19 U/L 5-35 1742-6) AST(SGOT) (test code 28 U/L 13-40 = 0319199414) eGFR (test code = mL/min/1.73m2 6064767980) PERRY (test code = PERRY) Association of [...] or urine or abnormalities in imaging tests). [facility] WITH JWAY6961-49-68 22:03:32 Test Item Value Reference Range Interpretation Comments WBC (test code = See_Comment [Automated 7496-2) message] The sy stem which generated this result transmitted reference range : 4.30 - 11.10 10*3/?L. The reference range was not used to interpret this result as normal/abnormal . RBC (test code = See_Comment [Automated 157-8) message] The sy stem which generated this [...] RDW-SD (test code = 40.2 fL 39.0-49.9 50444-5) RDW-CV (test code = 12.9 % 12.0-15.5 788-0) PLT (test code = See_Comment H [Automated 777-3) message] The sy stem which generated this result transmitted reference range : 166 - 358 10*3/ ?L. The reference r katie was not used to interpret this result as normal/abnormal . MPV (test code = 9.4 fL 9.5-12.9 L 21622-8) NRBC/100 WBC (test See_Comment [Automat ed code = 3366508947) message] The system which generated this result transmitted reference range : 0.0 - 10.0 /100 WBCs. The refer ence range was not u sed to interpret th is result as normal/abnormal . NRBC x10^3 (test code <0.01 See_Comment [Auto mated = 3343320184) message] The s ystem which generated this result transmitted reference range : 10*3/?L. The reference range was not used to interpret this result as normal/abnormal . GRAN MAT (NEUT) % 67.1 % (test code = 770-8) IMM GRAN % (test code 1.00 % = 4369327368) LYMPH % (test code = 21.4 % 736-9) MONO % (test code = 7.9 % 5905-5) EOS % (test code = 1.8 % 713-8) BASO % (test code = 0.8 % 706-2) GRAN MAT x10^3(ANC) 7.35 10*3/uL 1.88-7.09 H (test code = 9088454681) IMM GRAN x10^3 (test 0.11 10*3/uL 0.00-0.06 H code = 3697620299) LYMPH x10^3 (test code 2.34 10*3/uL 1.32-3.29 = 731-0) MONO x10^3 (test code 0.86 10*3/uL 0.33-0.92 = 742-7) EOS x10^3 (test code = 0.20 10*3/uL 0.03-0.39 711-2) BASO x10^3 (test code 0.09 10*3/uL 0.01-0.07 H = 704-7) Lab Interpretation Abnormal (test code = 66104-6) [facility] - INFLUENZA A & B DIRECT FZHCUYC4562-66-50 14:04:00 Test Item Value Reference Range Interpretation Comments Influenza A (test code = 06710-1) Negative Negative Influenza B (test code = 97583-7) Negative Negative Lab Interpretation (test code = Normal 75076-3) [facility] (ID NOW RAPID TESTING)2020-09-30 14:03:00 Test Item Value Reference Range Interpretation Comments SARS-CoV-2 Rapid ID NOW Not Detected Not Detected (test code = 89684-7) PERRY (test code = PERRY) ID NOW COVID-19 Assay is an isothermal nucleic acid amplification test intended for the qualitative detection of nucleic acid from SARS-CoV-2 viral RNA in nasopharyngeal (NUT RO[employer]) specimens. It is used under Emergency [...] indicated. Lab Interpretation Normal (test code = 97814-9) [facility]UR[facility]IS2020-12-07 13:55:00 Test Item Value Reference Range Interpretation Comments APPEARANCE (test code = Hazy Clear A 4619977520) COLOR (test code = Yellow Yellow 6139381972) PH (test code = 4.8-8.0 5693972787) SP GRAVITY (test code = 1.003-1.030 4292484877) GLU U QUAL (test code = Normal Normal 0228725198) BLOOD (test code = Negative Negative 1580899860) KETONES (test code = 5 mg/dL Negative A 9841803723) PROTEIN (test code = Negative Negative 2887-8) UROBILIN (test code = 2.0 mg/dL Normal A 8509267914) BILIRUBIN (test code = Negative Negative 3254565518) NITRITE (test code = Negative Negative 2917485452) LEUK ROZINA (test code = 25/uL Negative A 0170795164) RBC/HPF (test code = See_Comment [Autom ated message] 8143246793) The system [employer] generated this result transmit ngozi reference range : 0 - 3 HPF. The refe rence range was not u sed to interpret th is result as normal/abnormal . WBC/HPF (test code = See_Comment [Autom ated message] 6344773471) The system [employer] generated this result transmit ngozi reference range : 0 - 5 HPF. The refe rence range was not u sed to interpret th is result as normal/abnormal . BACTERIA (test code = Few Negative A 7974046662) MUCOUS (test code = Slight Negative LPF A 2208763942) SQ EPITH (test code = HPF 4020618958) Lab Interpretation (test Abnormal code = 41611-0) [facility] HospitalRPR Xvwblzjnwod5154-35-17 16:42:24 Test Item Value Reference Range Interpretation [...] = 10-24-2020 N Expiration Dt) Thyroid Stimulating Jtuwhfe8103-78-62 08:35:16 Test Item Value Reference Range Interpretation Comments TSH (test code = TSH) 1.170 mIU/mL 0.270-4.200 Lipid Overo2815-46-38 08:21:19 Test Item Value Reference Range Interpretation Comments Cholesterol Total 254 mg/dL 0-200 H RISK OF HE ART (test code = DISEASEPublishe d by Cholesterol Total) [employer] Cathie lyte Optimal Borderl ine [...] calculation is LDL/HDL Ratio=L DL Calc/HDL Chol HTWYBTLCJLWZ7988-35-19 08:24:008.6[facility] FrxwvnvMFQEPXIMPDMW5726-95-49 08:24:11630Zazqlzyg NwgshnsVBHUJYQXRPOY1418-95-56 08:24:0027[facility] YIJNOXLCMABH3943-02-26 08:24:85562Mwgcggnf AfgabzmRWJYXBEXRXOK6700-06-39 08:24:003.6[facility] RdqqgbuQATSIGWKUHNY6515-97-54 08:24:000.70[facility] RSINMCMRQKUP8818-24-25 08:24:008.4[facility] VnbzohpLFMSXBAMJXVU1192-24-06 08:24:80729Kgpfcezw HhatemwJFDYMIENNDGN2406-96-89 08:24:0086[facility] VPVQJGHLKIME1679-64-02 08:24:006[facility] FqfyrzsEDQQVFYJED9052-04-56 08:24:00 11.6[facility] TuwerroEDYJWFTRTL9715-55-18 08:24:003.78[facility]annHEMATOLOGY 2019-01-26 08:24:0013.3[facility] StlbmkgCRBVDPVQGC5698-57-34 08:24:0034.0[facility] CcuqxifCFMMOIEODJ0282-67-77 08:24:006.3[facility] UdvxoisLWEEMUXAKB0055-10-74 08:24:00 Test Item Value Reference Range Interpretation Comments MCH (test code = MCH) 30.7 pg 27.0-31.0 [facility] CwzeznzJGQBIYXHGL9388-64-83 08:24:0090.3[facility] HermannHEMATOLOGY 2019-01-26 08:24:0034.2[facility] IvempruPSFFEVVNKU0179-79-18 08:24:27907Krpjfdtt PheltheADDNLZXSKU8161-54-54 08:24:007.5[facility] GvxmljpHEEEEFKNENDI1250-10-59 08:24:008.6[facility] QjudzfxSNPAYUBONNTD1124-56-11 08:24:65167Vzplikal [facility] ERJIXCRZEYMG2853-21-51 08:24:0027[facility] KxifnogELQMEYSXCEVH9103-76-28 08:24:00 139[facility] IumgkqdNLORENFSTNOV9503-51-82 08:24:003.6[facility] BZIJXZDLBRLN9182-58-96 08:24:000.70[facility] OpqyyfeEEVNJCCWQHQI2556-14-45 08:24:008.4[facility] SthncsgQQRKGZLXLEOB9039-31-54 08:24:51972Pdvjrmdv [facility] AZEYJFKJZVVZ1542-70-39 08:24:0086[facility] PfjvrkfUEGAJLEYIMRH4146-25-94 08:24:00 6[facility] JcfdnuxPXHEIQICDM7165-98-78 08:24:0011.6[facility] HermannHEMATOLOGY 2019-01-26 08:24:003.78[facility] MozwbvtWAHRRMLQTY4770-44-73 08:24:0013.3[facility] PuiwwroTTCSLHFBBG6038-71-34 08:24:0034.0[facility] JaklztmAWDITZTDVI3760-75-46 08:24:006.3[facility] PftpfrmGYTRVWBVWN8757-07-54 08:24:00 Test Item Value Reference Range Interpretation Comments MCH (test code = MCH) 30.7 pg 27.0-31.0 [facility] LuwgbyaVYRQUXJGLG8578-58-97 08:24:0090.3[facility] HermannHEMATOLOGY 2019-01-26 08:24:0034.2[facility] CmwupvmPBCZFNTPNQ8067-85-01 08:24:99509Dvsvzpvt CezmfpyPYPAIZGYJD6412-56-66 08:24:007.5[facility] HermannCHEM ZKKNG3382-14-04 09:14:70542Avmqradg HermannCHEM RNAMJ8215-81-97 09:14:008.5[facility]annCHEM RXUZX3197-00-69 09:14:0013.3[facility]annCHEM CBEMT4978-66-90 09:14:0024 [facility]annCHEM XGEMT0366-94-55 09:14:70994Iuzsnhzt HermannCHEM PANEL 2019-01-25 09:14:0081[facility]annCHEM PWOSG6319-39-36 09:14:002[facility]annCHEM JIGYI3966-14-46 09:14:003.3[facility]annCHEM FIYEC1767-12-13 09:14:000.60[facility]annCHEM IBZWO5962-20-75 09:14:77860Ornuwnug HermannCHEM URKQM7855-08-06 09:14:29915Qjzdgmxn [facility]CHE[facility] SCZBU7300-38-78 09:14:008.5 [facility]annCHE[facility] NQRUA1023-37-91 09:14:0013.3[facility]annCHEM PANEL 2019-01-25 09:14:0024[facility]annCHEM UGVSI5225-75-03 09:14:87307Wmnnscui [facility]annCHEM XIFYT0464-32-53 09:14:0081[facility]annCHEM WLBRF2481-82-87 09:14:002[facility]annCHEM LZLJH0188-13-66 09:14:003.3[facility]annCHEM AUOYW5552-53-51 09:14:000.60[facility]annCHEM ZPUKF0263-85-20 09:14:08132 [facility]annMOLECULAR NMDBTSJLKO5902-85-04 16:22:00Negative (01/23/19 11:22 AM)[facility]annMOLECULAR LQFWTMOZOC9287-66-00 16:22:00Negative (01/23/19 11:22 AM)[facility]annCHEM KWKCA3139-83-24 15:42:002.76[facility]annCHEM PANEL 2019-01-23 15:42:002.76[facility]annCHEM GAVJW3222-99-66 12:32:000.9[facility]annCHEM MJQTA3056-36-76 12:32:000.9[facility]annCHEM DXBDT3982-88-70 10:50:002.0[facility]annCHEM TJENV9843-13-13 10:50:69912Rwrdeuhq [facility]annCHE[facility] FGBOP2626-64-19 10:50:0023[facility]annCHEM SFCKI0801-28-32 10:50:92187 [facility]annCHEM UBTJU9279-39-48 10:50:003.1[facility] HermannCHEM PANEL 2019-01-23 10:50:27627Bgzvnzdp [facility]annCHEM JDTJU5478-60-84 10:50:005[facility]annCHEM LFTXE9281-74-81 10:50:000.50[facility]annCHEM DFCPS4985-19-17 10:50:007.8[facility]annCHEM OFZID9044-85-72 10:50:0083[facility]annCHEM FEJZI6182-39-26 10:50:0010.1[facility] MioktgaEBIIUBQEXU1287-09-42 10:50:000.2 [facility] HclybrrBAZQYPGKVI5810-54-32 10:50:000.8[facility] HermannHEMATOLOGY 2019-01-23 10:50:005.5[facility] NjxrvpnJNZKNYDRIX7838-60-59 10:50:002.2[facility] IwqjkcaWXILLSLTBY0315-85-45 10:50:000.1[facility] YcwpkipHPKLYTWCTI2431-61-33 10:50:0063.6[facility] VhtcfuiNRVNUDFKWU7529-07-71 10:50:008.9[facility] CQXWTFYYDD9395-79-83 10:50:002.3[facility] QpcvudfTBBRPUGXXB8526-63-38 10:50:00 Normal (01/23/19 5:50 AM)[facility] WtyknefAUVQTJHPJV2049-88-33 10:50:00Normal (01/23/19 5:50 AM)[facility] SdpqiabUVTQZEWATL8064-00-79 10:50:0025.1[facility] PevpcifIXMRTKAABZ6096-01-39 10:50:0013.1[facility] MpvhmcuYXGLNOHRNT9674-88-56 10:50:84096Lojccxnp MpjwomwNLUFWDPPIF6559-02-19 10:50:007.7[facility] YCHWRORSBW0068-61-54 10:50:008.6[facility] PfyfjdvCSBTHSXBWG7245-18-32 10:50:00 10.0[facility] YlemksoANFZQSCFNC4969-00-72 10:50:0034.6[facility]annHEMATOLOGY 2019-01-23 10:50:0028.7[facility] BxfxvxiUEHJEVSVZA5078-38-20 10:50:0087.8[facility] RiizftoLKGAYMPZAS4479-79-70 10:50:00 Test Item Value Reference Range Interpretation Comments MCH (test code = MCH) 30.4 pg 27.0-31.0 [facility] DggijqtPLEWPSBLBY0339-03-06 10:50:003.27[facility] HermannCHEM PANEL 2019-01-23 10:50:002.0[facility]annCHEM RFRUY4124-56-98 10:50:15879Muzmjsys HermannCHEM YTKII7993-15-96 10:50:0023[facility]annCHEM CPYLC0817-14-28 10:50:87057Wnhcnrns [facility]annCHE[facility] TGLRS1172-36-45 10:50:003.1[facility]annCHEM TUBEA6963-05-41 10:50:63859Depdjfrz [facility]annCHE[facility] TDMNC8746-97-22 10:50:005 [facility]annCHEM QFIAB6949-82-36 10:50:000.50[facility]annCHEM PANEL 2019-01-23 10:50:007.8[facility]annCHEM MPMSE6253-01-44 10:50:0083[facility]annCHEM RQGTN1593-04-00 10:50:0010.1[facility] GhexjxiCHNAGRZOXZ8311-82-65 10:50:000.2[facility] VcujgogPJWHDXWZRS4727-48-31 10:50:000.8[facility] SRSWTZGVOK1936-95-55 10:50:005.5[facility] ZixmyxrTWXJYNSWYF5434-98-42 10:50:002.2 [facility] PunaclmQEGWWJULPE4802-04-22 10:50:000.1[facility] HermannHEMATOLOGY 2019-01-23 10:50:0063.6[facility] GczefnbYHKSBEJAIV8559-29-58 10:50:008.9[facility] TwoogniLRJVGPBXKC0424-94-07 10:50:002.3[facility] YoftdpvASPIAIGIJY5727-49-45 10:50:00Normal (01/23/19 5:50 AM)[facility] GjugzwoEWMYHQBDWF8745-12-92 10:50:00 Normal (01/23/19 5:50 AM)[facility] WlqmhtzNGHHCZTMUB6723-09-49 10:50:0025.1[facility] BubzuifPLXGHZWMLZ2915-60-28 10:50:0013.1[facility] KshecioKBQYMONVAQ2365-41-17 10:50:77739Sfojkavi KqzjhqhCLGOEEHMXG3376-82-02 10:50:007.7[facility] SJLHYRXPRZ9793-81-64 10:50:008.6[facility] NulguhbLNQXMSTWNU5773-88-14 10:50:00 10.0[facility] XzmmakiSYROKQIMQI4210-79-62 10:50:0034.6[facility] HermannHEMATOLOGY 2019-01-23 10:50:0028.7[facility] VwfyoklIOUUTBPOSI6008-87-02 10:50:0087.8[facility] QquvarhEQSHXGKUZU1010-93-02 10:50:00 Test Item Value Reference Range Interpretation Comments MCH (test code = MCH) 30.4 pg 27.0-31.0 [facility] SiynorkWCEQRAYYUK5435-35-28 10:50:003.27[facility] HermannCHEM PANEL 2019-01-22 11:32:002.4[facility] HermannCHEM CLDLM6092-92-71 11:32:002.4[facility] HermannCHEM NZTTC9654-74-01 09:04:003.0[facility] HermannCHEM OOHOW3259-58-83 09:04:003.0[facility]annURINE AND MEZAZ3033-03-47 07:14:00 Test Item Value Reference Range Interpretation Comments UA Spec Grav (test code = UA Spec 1.014 1 Grav) [facility] PSFHF9189-77-22 07:14:00 Test Item Value Reference Range Interpretation Comments UA pH (test code = UA pH) 6.0 1 5.0-8.0 [facility] UTAHB9447-85-76 07:14:00Negative (01/22/19 2:14 AM) [facility] EFYSK5129-10-88 07:14:00Negative *NA*(01/22/19 2:14 AM) [facility] GPPAZ3273-47-55 07:14:00Negative *NA*(01/22/19 2:14 AM) [facility] RDKXQ9007-45-42 07:14:00Negative *NA*(01/22/19 2:14 AM) [facility] LDVTF1218-69-44 07:14:00Negative (01/22/19 2:14 AM) [facility] GXZZD6423-06-58 07:14:00Negative (01/22/19 2:14 AM) [facility] ZHZKP5668-52-71 07:14:00Negative (01/22/19 2:14 AM) [facility] ECPCU3652-24-78 07:14:00<1[facility] OPCKO4994-44-86 07:14:0025[facility] NWESC8524-46-46 07:14:002 [facility] UUSOD1144-67-43 07:14:00Light Yellow *NA*(01/22/19 2:14 AM)[facility] CPPSU3573-74-32 07:14:00Clear (01/22/19 2:14 AM) [facility] KEPOS7609-04-03 07:14:00 Test Item Value Reference Range Interpretation Comments UA Spec Grav (test code = UA Spec 1.014 1 Grav) [facility] HRSOQ7475-85-51 07:14:00 Test Item Value Reference Range Interpretation Comments UA pH (test code = UA pH) 6.0 1 5.0-8.0 [facility] ORVWM3208-46-20 07:14:00Negative (01/22/19 2:14 AM) [facility] FTNXB5487-33-22 07:14:00Negative *NA*(01/22/19 2:14 AM) [facility] WQYYQ0254-91-77 07:14:00Negative *NA*(01/22/19 2:14 AM) [facility] BOPLT7800-74-24 07:14:00Negative *NA*(01/22/19 2:14 AM) [facility] UDMJH0999-59-37 07:14:00Negative (01/22/19 2:14 AM) [facility] CRZZW4261-86-43 07:14:00Negative (01/22/19 2:14 AM) [facility] JAQZD1019-14-77 07:14:00Negative (01/22/19 2:14 AM) [facility] QOZVX1332-28-68 07:14:00<1[facility] BUQUU4701-84-13 07:14:0025[facility] AOKQW1898-89-01 07:14:002 [facility] ZJWEF9456-91-63 07:14:00Light Yellow *NA*(01/22/19 2:14 AM)[facility] IXIVG8806-57-41 07:14:00Clear (01/22/19 2:14 AM) [facility] VtyetukNXLWA1736-34-50 05:16:000.90[facility] VfgdpndDWKEB2737-68-62 05:16:000.90[facility] SzjtwrjSOWBCTXBMISJM8920-45-03 05:01:00Negative *NA*(01/22/19 12:01 AM)[facility] WjxtaibHZSGZMUPWR6502-02-62 05:01:000.1[facility] WvtwmzkNYFFUJNMJT0099-49-66 05:01:000.7[facility] CdxmqwuSUBQCWYINN4311-52-82 05:01:000.0[facility] NfkoyrgALPRFZCERP1030-25-20 05:01:000.0[facility] CJETBSEIIT3065-83-52 05:01:000.9[facility] BimwauvKRSIILADQV2290-96-60 05:01:008.6 [facility] LltcbqiRMWCOFTAOI7546-94-68 05:01:000.6[facility]annHEMATOLOGY 2019-01-22 05:01:0086.5[facility] RkucezaTNBQISAEEI1721-67-21 05:01:005.7[facility] YcfpfirEDHVMTZZAU4309-76-32 05:01:006.9[facility] JrhijiwWQFJPJTZSD0934-97-86 05:01:009.9[facility] KfxullhKFUNLFZGIA2487-08-53 05:01:0032.8[facility] DVYDEQRNBD8757-42-33 05:01:0013.6[facility] KsfibcaHQUAFOOVZN0003-25-21 05:01:00 443[facility] WvtiwxrTJZTBNCVOG1021-42-76 05:01:007.3[facility]annHEMATOLOGY 2019-01-22 05:01:0014.0[facility] SczbkipOIGPXTWQQT2731-82-89 05:01:004.85[facility] GwfpgadKHCHWNPJXZ9350-48-73 05:01:0042.7[facility] DfrwrfgEVPOFYXKTG4469-68-23 05:01:00 Test Item Value Reference Range Interpretation Comments MCH (test code = MCH) 29.0 pg 27.0-31.0 [facility] BabfzbhGUPOYXWYQJ5331-89-94 05:01:0088.2[facility]annHEMATOLOGY 2019-01-22 05:01:00 Test Item Value Reference Range Interpretation Comments INR (test code = INR) 0.96 1 0.85-1.17 [facility] PbdsciaMICFUJZLFG0493-71-15 05:01:00 Test Item Value Reference Range Interpretation Comments PT (test code = PT) 12.6 s 12.0-14.7 [facility] EqcyqwnJXECRQCJVI0087-78-59 05:01:00 Test Item Value Reference Range Interpretation Comments PTT (test code = PTT) 25.9 s 22.9-35.8 [facility] TVSVAMB2570[facility]48-04 05:01:00Negative (01/22/19 12:01 AM) [facility]annCARDIAC IWNTOMO4416-30-21 05:01:00<0.02[facility] CARDIAC SBILNQA2494-11-32 05:01:0049[facility] HermannCHEM RDVYF6162-49-70 05:01:000.6[facility]annCHEM EGPMN7401-39-33 05:01:66206Felusdbp [facility]annCHEM OAZSZ4782-71-24 05:01:004.0[facility] HermannCHEM AHXWQ6635-92-76 05:01:0017 [facility]annCHEM EJZDX1846-00-85 05:01:0025[facility]annCHEM PANEL 2019-01-22 05:01:008.1[facility]annCHEM FTIBN5091-80-52 05:01:00 Test Item Value Reference Range Interpretation Comments B/C Ratio (test code = B/C Ratio) 20 1 6-25 [facility]annCHE[facility] QTQVV9292-34-04 05:01:00 Test Item Value Reference Range Interpretation Comments A/G Ratio (test code = A/G Ratio) 1.0 1 0.7-1.6 [facility]annCHEM NRLQX9008-89-57 05:01:004.1[facility]annCHEM PANEL 2019-01-22 05:01:006.90[facility] GpbcxpeYAQJDXEUBUUMB6898-06-03 05:01:00Negative *NA*(01/22/19 12:01 AM)[facility] HnntnuxGIEVHLJVJI1918-34-29 05:01:000.1[facility] VmkzbcjHGHKWRKTRR7375-08-03 05:01:000.7[facility] PmboldvBYTRPBHVEU0024-11-39 05:01:000.0[facility] RryhkhpOZIBCZREFE2672-18-22 05:01:000.0[facility] HIRHLLXEWQ0593-39-80 05:01:000.9[facility] CfpmlggIABEKBURAH3377-98-25 05:01:008.6 [facility] IcinnqqSJOLIQLEZC4222-87-09 05:01:000.6[facility]annHEMATOLOGY 2019-01-22 05:01:0086.5[facility] YslhzhpFYCICAJQFG1953-13-96 05:01:005.7[facility] XjfwoueOBXRUMFLHW3528-11-68 05:01:006.9[facility] EtgapzrDYQTUAAQQG1099-43-51 05:01:009.9[facility] UgtknuuXHJLMDTZIR7808-64-54 05:01:0032.8[facility] OBXNILHDSS8427-62-56 05:01:0013.6[facility] FyxupsvSVCCTWAHCD9819-84-14 05:01:00 443[facility] HirumonGUDQRNOKPF5240-23-71 05:01:007.3[facility]annHEMATOLOGY 2019-01-22 05:01:0014.0[facility] KqotogbMUAWNNAXQA8297-75-85 05:01:004.85[facility] GpatanhXQDVPYZDLT3406-90-15 05:01:0042.7[facility] SvmeugpBKEYHYHDTY8702-19-14 05:01:00 Test Item Value Reference Range Interpretation Comments MCH (test code = MCH) 29.0 pg 27.0-31.0 [facility] XllsxoxFTDKBGHQXG3536-38-28 05:01:0088.2[facility]annHEMATOLOGY 2019-01-22 05:01:00 Test Item Value Reference Range Interpretation Comments INR (test code = INR) 0.96 1 0.85-1.17 [facility] UrunilnRSNTEZMMHZ7112-53-31 05:01:00 Test Item Value Reference Range Interpretation Comments PT (test code = PT) 12.6 s 12.0-14.7 [facility]bxIYPEVDSIFT3447-55-55 05:01:00 Test Item Value Reference Range Interpretation Comments PTT (test code = PTT) 25.9 s 22.9-35.8 [facility] [id number] 05:01:00Negative (01/22/19 12:01 AM) [facility]annCARDIAC [id number] 05:01:00[facility].02[facility] [id number] 05:01:0049[facility] [id number] 05:01:000.6[facility]ann[facility] [id number] 05:01:66898Efqbimcg HermannCHEM [id number] 05:01:004.0[facility]ann[facility] [id number] 05:01:0017 [facility] [id number] 05:01:0025[facility]ann[facility] PANEL 2019-01-22 05:01:008.1[facility] [id number] 05:01:00 Test Item Value Reference Range Interpretation Comments B/C Ratio (test code = B/C Ratio) 20 1 6-25 [facility] HermannCHEM [id number] 05:01:00 Test Item Value Reference Range Interpretation Comments A/G Ratio (test code = A/G Ratio) 1.0 1 0.7-1.6 [facility] HermannCHEM [id number] 05:01:004.1[facility]ann[facility] PANEL 2019-01-22 05:01:006.90[facility] [id number] 14:36:00 Test Item Value Reference Range Interpretation [...] 0.00-0.01 N code = ETOHU) Comprehensive Metabolic [id number] 14:36:00 Test Item Value Reference Range Interpretation [...] the [employer],http :[email or web address] ep.nih.gov Urinalysis [id number] 14:32:00 Test Item Value Reference Range Interpretation Comments Color (test code = COLOR) Yellow Yellow,Straw,Pl N yellow Clarity (test code = Clear Clear N CLAR) Specific [place] (test 1.024 1.001-1.035 N code = SPGR) [...] code = Few /HPF BACT) CBC with [id number] 14:21:00 Test Item Value Reference Range Interpretation [...] code = ALYMPH) 3.0 K/cumm 0.5-4.6 N [place] Abs (test code = AMONO) 0.5 K/cumm 0.0-1.2 N Eos Abs (test code = AEOS) 0.19 K/cumm 0.00-0.74 N Baso Abs (test code = ABASO) 0.1 K/cumm 0.00-0.21 N
[2021-10-31] MEDS ORDERED: ACETAMIN/CAFFEINE/BUTALB TAB PO ONE (06:47)
[2021-10-31] MEDS ORDERED: ONDANSETRON 4 MG (ODT) TAB ONE (06:48)
--- NOTE | 2021-10-31 06:48 | EDPHYS ---
Physician Documentation [facility] Name: Tiffany Quinn Age: 51 yrs Sex: Female : 1970 Arrival Date: 10/31/2021 Time: 05:59 Bed Waiting Private MD: ED Physician Goran Bledsoe HPI: 10/31 06:45 This 51 yrs old Female presents to ER via Ambulatory with complaints of Nausea, jr8 Migraine, Breathing Difficulty. 06:45 Onset: The symptoms/episode began/occurred acutely, today. Associated signs and jr8 symptoms: The patient has no apparent associated signs or symptoms. Severity of symptoms: At its worst the pain was moderate, in the emergency department the pain is unchanged. The symptoms are alleviated by the symptoms are aggravated by nothing. The patient has experienced similar episodes in the past, several times. The patient has been recently seen by a physician:. Patient stated that she has another migraine and is nauseated. Patient seen yesterday for same thing. Stated that it helped but started to hurt again. No other complaints at this time . [facility] [place] PULP: 06:34 LMP N/A - Post-menopause vc1 Historical: - Allergies: 06:33 Pepcid; vc1 06:33 Toradol; vc1 - PMHx: 06:33 ADD; Anxiety; Bipolar disorder; Migraine; vc1 - PSHx: 06:33 Cholecystectomy; hernia repair; vc1 - Immunization history:: Adult Immunizations up to date, Client reports receiving the 2nd dose of the Covid vaccine. - Social history:: Smoking status: Patient denies any tobacco usage or history of. ROS: 06:45 Eyes: Negative for injury, pain, redness, and discharge, ENT: Negative for injury, jr8 pain, and discharge, Neck: Negative for injury, pain, and swelling, Cardiovascular: Negative for chest pain, palpitations, and edema, Respiratory: Negative for shortness of breath, cough, wheezing, and pleuritic chest pain, Back: Negative for injury and pain, MS/Extremity: Negative for injury and deformity, Skin: Negative for injury, rash, and discoloration. 06:45 Abdomen/GI: Positive for nausea, Negative for abdominal pain, vomiting, diarrhea. 06:45 Neuro: Positive for headache. Exam: 06:45 Constitutional: This is a well developed, well nourished patient who is awake, alert, jr8 and in no acute distress. Neck: Trachea midline, no thyromegaly or masses palpated, and no cervical lymphadenopathy. Supple, full range of motion without nuchal rigidity, or vertebral point tenderness. No Meningismus. Cardiovascular: Regular rate and rhythm with a normal S1 and S2. No gallops, murmurs, or rubs. Normal PMI, no JVD. No pulse deficits. Respiratory: Lungs have equal breath sounds bilaterally, clear to auscultation and percussion. No rales, rhonchi or wheezes noted. No increased work of breathing, no retractions or nasal flaring. Abdomen/GI: Soft, non-tender, with normal bowel sounds. No distension or tympany. No guarding or rebound. No evidence of tenderness throughout. Skin: Warm, dry with normal turgor. Normal color with no rashes, no lesions, and no evidence of cellulitis. MS/ Extremity: Pulses equal, no cyanosis. Neurovascular intact. Full, normal range of motion. Neuro: Awake and alert, GCS 15, oriented to person, place, time, and situation. Cranial nerves II-XII grossly intact. Motor strength 5/5 in all extremities. Sensory grossly intact. Cerebellar exam normal. Normal gait. Vital Signs: 06:26 BP 110 / 79; Pulse 79; Resp 22; Temp 98; Pulse Ox 99% ; Weight 72.03 kg; Height 5 ft. 3 vc1 in. (160.02 cm); Pain 9/10; 06:26 Body Mass Index 28.13 (72.03 kg, 160.02 cm) vc1 MDM: 06:45 Data reviewed: vital signs, nurses notes, and as a result, I will discharge patient. [facility] Data interpreted: Pulse oximetry: on room air is 99 %. Interpretation: normal. Counseling: I had a detailed discussion with the patient and/or guardian regarding: the historical points, exam findings, and any diagnostic results supporting the discharge/admit diagnosis, the need for outpatient follow up, a family practitioner, to return to the emergency department if symptoms worsen or persist or if there are any questions or concerns that arise at home. 06:48 Patient medically screened. jr8 Administered Medications: 06:49 Drug: Ondansetron 4 mg Route: PO; vc1 06:51 Follow up: Response: No adverse reaction vc1 06:49 Drug: Fioricet - Esgic 325 mg-40 mg-50 mg 1 tab-caps Route: PO; vc1 06:51 Follow up: Response: No adverse reaction vc1 Disposition: 06:53 Co-signature as Attending Physician, Goran Bledsoe MD. pkl Disposition Summary: 10/31/21 06:48 Discharge Ordered Location: Home jr8 Problem: new jr8 Symptoms: have improved jr8 Condition: Stable jr8 Diagnosis - Headache jr8 - Nausea jr8 Followup: jr8 - With: Private Physician - When: 2 - 3 days - Reason: Recheck today's complaints, Continuance of care, Re-evaluation by your physician Discharge Instructions: - Discharge Summary Sheet jr8 - Migraine Headache jr8 - Nausea, Adult jr8 Forms: - Medication Reconciliation Form jr8 - Thank You Letter jr8 - Antibiotic Education jr8 - Prescription Opioid Use jr8 Signatures: Goran Bledsoe MD MD pkl Guanako Palomino PA PA jr8 Janie Abebe RN RN vc1
--- NOTE | 2021-10-31 06:48 | ER ---
Nurse's Notes [facility] Name: Tiffany Quinn Age: 51 yrs Sex: Female : 1970 Arrival Date: 10/31/2021 Time: 05:59 Bed Waiting Private MD: Diagnosis: Headache;Nausea Presentation: 10/31 06:26 Chief complaint: Patient states: I have been here every day for the last 3 days with a vc1 migraine, sob, and nausea. I can't get into my primary care DrGro[facility] until the . Yesterday they gave me a Fioricet and zofran and it helped. I was hoping ya'll could just give me the same thing here. Coronavirus screen: Vaccine status: Patient reports receiving the 2nd dose of the covid vaccine. Moderna At this time, the client does not indicate any symptoms associated with coronavirus-19. Ebola Screen: No symptoms or risks identified at this time. Initial Sepsis Screen: Does the patient meet any 2 criteria? No. Patient's initial sepsis screen is negative. Does the patient have a suspected source of infection? No. Patient's initial sepsis screen is negative. Risk Assessment: Do you want to hurt yourself or someone else? Patient reports no desire to harm self or others. Onset of symptoms was October 28, 2021. 06:26 Method Of Arrival: Ambulatory vc1 06:26 Acuity: MANUEL 4 vc1 Triage Assessment: 06:33 General: Appears in no apparent distress. uncomfortable, Behavior is cooperative, vc1 appropriate for age, anxious. Pain: Complains of pain in top of head, forehead, right synagogue and left synagogue Pain currently is 9 out of 10 on a pain scale. Neuro: No deficits noted. Cardiovascular: No deficits noted. GI: Reports nausea. CONSULTANT NURSE: 06:34 LMP N/A - Post-menopause vc1 Historical: - Allergies: 06:33 Pepcid; vc1 06:33 Toradol; vc1 - PMHx: 06:33 ADD; Anxiety; Bipolar disorder; Migraine; vc1 - PSHx: 06:33 Cholecystectomy; hernia repair; vc1 - Immunization history:: Adult Immunizations up to date, Client reports receiving the 2nd dose of the Covid vaccine. - Social history:: Smoking status: Patient denies any tobacco usage or history of. Screenin:49 Abuse screen: Denies threats or abuse. Nutritional screening: No deficits noted. vc1 Tuberculosis screening: No symptoms or risk factors identified. Fall Risk None identified. Assessment: 06:50 GI: Abdomen is round non-distended, Reports nausea, nausea with migraine. vc1 Vital Signs: 06:26 BP 110 / 79; Pulse 79; Resp 22; Temp 98; Pulse Ox 99% ; Weight 72.03 kg; Height 5 ft. 3 vc1 in. (160.02 cm); Pain 9/10; 06:26 Body Mass Index 28.13 (72.03 kg, 160.02 cm) vc1 ED Course: 05:59 Patient arrived in ED. 06:33 Triage completed. vc1 06:34 Arm band placed on right wrist. vc1 06:44 Guanako Palomino PA is PHCP. jr8 06:44 Goran Bledsoe MD is Attending Physician. jr8 06:49 No provider procedures requiring assistance completed. Patient did not have IV access vc1 during this emergency room visit. 06:51 Patient has correct armband on for positive identification. vc1 Administered Medications: 06:49 Drug: Ondansetron 4 mg Route: PO; vc1 06:51 Follow up: Response: No adverse reaction vc1 06:49 Drug: Fioricet - Esgic 325 mg-40 mg-50 mg 1 tab-caps Route: PO; vc1 06:51 Follow up: Response: No adverse reaction vc1 Outcome: 06:48 Discharge ordered by . jr8 06:51 Discharged to home ambulatory. vc1 06:51 Condition: good 06:51 Discharge instructions given to patient, Instructed on discharge instructions, follow up and referral plans. medication usage, Demonstrated understanding of instructions, follow-up care, medications. 06:51 Patient left the ED. vc1 Signatures: Guanako Palomino PA PA jr8 Laly Lutz Janie Abebe RN RN vc1
[2021-10-31 07:09] VITALS: BP 110/79; TEMP 98; O2SAT 99
== END 2021-10-31 06:51 | disposition home or self-care (01) ==
LOC: ER 05:54
DX: R51.9 Headache, unspecified (principal); R11.0 Nausea; Z88.8 Allergy status to other drugs, medicaments and biological substances
CPT/HCPCS: 99283

== ENCOUNTER 2021-10-31 19:20 | Emergency (ER) | payer OTHER ==
[2012-06-30 14:08] VITALS: BP 140/91
--- OUTSIDE RECORDS SUMMARY | 2021-10-31 19:28 | XMS REPORT | Continuity of Care Document ---
:1970 Author Organization [facility] t Address [address] [place] [address] Care Team Providers Name Role Phone UNKNOWN [...] Number Effective Date Expiration Date S nasim [facility] [place] - [phone] 2020 [employer] 00:00:00 (MEDICARE REPLACEMENT/ADVANT AGE - HMO) Problems Condition Condition Condition Status Onset Resolution Last Treating Co mments Source Name Details Category Date Date Treatment Clinician Date LOW PB Diagnosis Active 2019-01-22 Mem oria 01-21 01:52:00 l LOW PB 00:00: [place] 00 Active 01/21/2019 [facility] INFECTIOUS Diagnosis Active 2019-02-06 Memoria GASTROENTE 01-21 08:58:00 l RITIS AND 00:00: [place] COLITIS INFECTIOUS 00 GASTROENTE RITIS AND COLITIS Active 01/21/2019 [facility] Irregular Irregular Disease Active Uni vers menstrual menstrual 8-15 ity of cycle cycle 00:00: [address] Skin Skin Disease Active Univers lesion lesion 8-15 ity of 00:00: [address] Psychiatri Psychiatri Disease Active U nivers c disorder c disorder 8-15 it y of 00:00: [address] Well woman Well woman Disease Active U nivers exam with exam with 8-15 ity of routine routine 00:00: [place] gynecologi gynecologi 00 Me dical nicky exam nicky exam Branch INFECTIOUS Diagnosis Active 2019-02-06 Memoria GASTROENTE 08:58:00 l RITIS AND Yonis COLITIS, INFECTIOUS GASTROENTE RITIS AND COLITIS, Active [facility] Allergies, Adverse Reactions, Alerts Allergy Allergy Status Severity Reaction(s) Onset Inactive Treating Comm ents Source Name Type Date Date Clinician promanaa DA Active [place] ANXIETY [facility] zine 1-01 Clear 00:00: [place] 00 [facility] prometha DA Active U [facility] zine 7-04 Clear 00:00: Catherine 00 [facility] NO KNOWN Drug Active Univers ALLERGIE Class ity of S [facility] Phenerga Phenerga Active [place] [facility] [place] Social History Social Habit Start Date Stop Date Quantity Comments Source History of Cigarette Smoker Universi ty of tobacco use [facility] Tobacco Comment 2-3 cigs a day Unive rsity of [facility] Exposure to Not sure University of SARS-CoV-2 [facility] (event) [place] Tobacco use and 2016-06-08 2016-06-08 Never used Universit y of exposure 00:00:00 00:00:00 [facility] Alcohol intake 2016-06-08 2016-06-08 0 /d University of 00:00:00 00:00:00 [facility] Sex Assigned At [birth year] Universit y of 00:00:00 00:00:00 [facility] Smoking Status Start Date Stop Date Source Social History 2019-01-22 05:00:12 Jeanne urena Current some day smoker 2016-06-08 00:00:00 [facility] Medications Ordered Filled Start Stop [...] :00 dose, On Medi nicky mg Wed [place] 09/10/21 at 0045, RANDA NaCl 0.9% 2020-10- No 1000mL at 999 Uni vers (NS) bolus 11-10 mL/hr, ity of infusion 05:30: 05:30 1,000 mL, Joe as 1,000 mL 00 :00 IV Medical Infusion, Branch ONCE, 1 dose, On 09/09/21 at 2330, RANDA amoxicillin 2020-10 Yes [id number] 500mg Take 1 Univers 500 mg 11-10 capsule by ity of capsule 00:00: mouth 3 [place] 00 (three) Medical times Branch daily. ondansetron 2019-10- No 4mg 4 mg, Univ ers (ZOFRAN-ODT 12-01 Oral, ity of ) 15:15: 14:16 ONCE, 1 [place] disintegrat 00 :00 dose, Mon Med ical ing tablet 09/30/20 at [facility] nc 4 mg 0915, Routine ondansetron 2019-10 2020- No 4mg 4 mg, [facility] (ZOFRAN-ODT 2-07 12-07 Oral, ity of ) 14:30: 13:32 ONCE, 1 [place] disintegrat 00 :00 dose, Mon Med ical ing tablet 09/30/20 at [facility] 4 mg 0830, Routine ondansetron 2019-10 Yes [id number] 4mg Take 1 Univers 4 mg 2-07 tablet by ity of disintegrat 00:00: mouth [place] ing tablet 00 every 8 Medica l (eight) Branch hours as needed for Nausea and Vomiting (N/V). ondansetron 2019-10 Yes [id number] 4mg Take 1 Univers 4 mg 2-07 tablet by ity of disintegrat 00:00: mouth [place] ing tablet 00 every 8 Medica l (eight) Branch hours as needed for Nausea and Vomiting (N/V). ondansetron 2019-10 Yes [id number] 4mg Take 1 Univers 4 mg 2-07 tablet by ity of disintegrat 00:00: mouth [place] ing tablet 00 every 8 Medica l (eight) Branch hours as needed for Nausea and Vomiting (N/V). ondansetron 2019-10 Yes [id number] 4mg Take 1 Univers 4 mg 2-07 tablet by ity of disintegrat 00:00: mouth [place] ing tablet 00 every 8 Medica l (eight) Branch hours as needed for Nausea and Vomiting (N/V). ciprofloxac Yes 500 mg = 1 Memoria in 500 mg 4-04 tab, PO, l oral tablet 17:35: [id number], X [place] 00 4 day, # 8 tab, 0 Refill(s) Ondansetron 2019 Yes 4 mg = 1 Me moria 4 MG Oral 4-04 tab, PO, l Tablet 17:35: Q6H, PRN [place] [Zofran] 00 Nausea/Vom iting, # 20 tab, [...] 4-04 tab, PO, l oral tablet 17:35: [id number], X [place] 00 4 day, # 8 tab, 0 Refill(s) Ondansetron 2019- Yes 4 mg = 1 Me moria 4 MG Oral 4-04 tab, PO, l Tablet 17:35: Q6H, PRN [place] [Zofran] 00 Nausea/Vom iting, # 20 tab, [...] 4-03 (Same as: l 13:26: K-Dur 20) [place] 00 "Do Not Crush" Give with food and full glass of water For patients unable to swallow tablet, dissolve in one half glass of water. Allow about 2 minutes for the tablets to disintegra te. Stir before giving to prepare slurry and administer . Please exclude Patient s with feeding tube less than 14 [place] (Dobhoff, J-tube etc) and pediatric and patients. [...] s with feeding tube less than 14 [place] (Dobhoff, J-tube etc) and pediatric and patients. [...] ia - (Same As: l 18:00: KlonoPIN) [place] 00 Clonazepam No Notes: Memor ia 4- (Same As: l 18:00: KlonoPIN) [place] 00 Flagyl No Notes: Memoria - (Same as: l 15:00: Flagyl) [place] Take with food/ avoid alcohol Cipro No Notes: May Memori a - interfere l 15:00: w/enteral [place] 00 feedings - Take 1 hr before or 2 hrs after antacids, dairy pdt & minerals. On empty stomach. Flagyl No Notes: Memoria 4- (Same as: l 15:00: Flagyl) [place] 00 Take with food/ avoid alcohol Cipro [...] MG 4-01 PO, l Oral Tablet 14:20: [id number], 0 [place] [Cipro] 00 Refill(s) potassium 2019 Yes 40 mEq, Memor ia chloride 20 4-01 PO, ONCE, l mEq oral 14:20: 0 [place] tablet, 00 Refill(s) extended release Metronidazo No 500 mg, Mem oria le 500 MG 4-01 PO, l Oral Tablet 14:20: [id number], 0 H [place] [Flagyl] 00 Refill(s) Ciprofloxac No 500 mg, Mem oria in 500 MG 4-01 PO, l Oral Tablet 14:20: [id number], 0 [place] [Cipro] 00 Refill(s) Potassium No Notes: Memori [...] s with feeding tube less than 14 [place] (Dobhoff, J-tube etc) and pediatric and patients. [...] s with feeding tube less than 14 [place] (Dobhoff, J-tube etc) and pediatric and patients. [...] tab, PO, l Tablet 21:08: BID, 0 [place] [Risperdal] 00 Refill(s) Strattera Yes 0.5 mg/kg, [...] 01-22 Route: IM, l 09:47: Drug form: [place] 00 PDR/INJ, PRN, Dosing Weight 75.994, kg, PRN Blood Glucose Results, Start date: 01/22/19 4:47:00 CDT, Duration: 30 day, Stop date: 02/21/19 4:46:00 CDT Dextrose No 12.5 gm, Memor ia 50% Syringe 01-22 25 mL, l 09:47: Route: [place] 00 IVP, Drug Form: INJ, Dosing Weight [...] Memoria 3-31 (Same as: l 06:10: Zosyn) [place] 00 Dosing based on Piperacill in component [...] moria IV 3-31 1,000 l 05:44: ml/hr, [place] 00 Infuse Over: 1 hr, Route: IV, [...] Memoria 3-31 (Same as: l 04:52: Zofran) [place] 00 MEDICATION WASTE Product Size: 4 mg Product Wasted: ___ mg Saline No Notes: Memoria Flush 0.9% 3-31 Same as: l 04:52: BD [place] 00 Posiflush Sterile NS (Bolus) No 1,000 [...] tablet by ity of HYDROCHLORI 00:00: mouth [place] DE,) 4 mg 00 every 8 Medical tablet (eight) Branch hours. ondansetron 2017-0 Yes 4mg Take 1 Univ ers (ZOFRAN, 1-27 tablet by ity of HYDROCHLORI 00:00: mouth [place] DE,) 4 mg 00 every 8 Medical tablet (eight) Branch hours. ibuprofen 2016-0 Yes 200mg Take 200 Uni vers (ADVIL) 200 8-15 mg by ity of mg tablet 19:02: mouth [place] [address] every 6 Medical (six) Branch hours as needed. CLONAZEPAM 2016-0 Yes Take by Uni vers (KLONOPIN 8-15 mouth. ity of ORAL) 19:02: [address] Branch CITALOPRAM 2016-0 Yes Take by Uni vers HYDROBROMID 8-15 mouth. ity of E 19:02: [place] (CITALOPRAM 27 Medical ORAL) Branch ibuprofen 2016-0 Yes 200mg Take 200 Uni vers (ADVIL) 200 8-15 mg by ity of mg tablet 14:02: mouth [place] [address] every 6 Medical (six) Branch hours as needed. CLONAZEPAM 2016-0 Yes Take by Uni vers (KLONOPIN 8-15 mouth. ity of ORAL) 14:02: [address] Branch CITALOPRAM 2016-0 Yes Take by Uni vers HYDROBROMID 8-15 mouth. ity of E 14:02: [place] (CITALOPRAM 27 Medical ORAL) Branch ibuprofen 2016-0 Yes 200mg Take 200 Uni vers (ADVIL) 200 8-15 mg by ity of mg tablet 14:02: mouth [place] [address] every 6 Medical (six) Branch hours as needed. CLONAZEPAM 2016-0 Yes Take by Uni vers (KLONOPIN 8-15 mouth. ity of ORAL) 14:02: [address] Branch CITALOPRAM 2016-0 Yes Take by Uni vers HYDROBROMID 8-15 mouth. ity of E 14:02: [place] (CITALOPRAM 27 Medical ORAL) Branch ibuprofen 2016-0 Yes 200mg Take 200 Uni vers (ADVIL) 200 8-15 mg by ity of mg tablet 14:02: mouth [place] [address] every 6 Medical (six) Branch hours as [...] Source Systolic blood 2021-09-10 08:01:00 138 mm[Hg] [facility] Diastolic blood 2021-09-10 08:01:00 97 mm[Hg] [facility] Heart rate 2021-09-10 08:01:00 87 /min [facility] Respiratory rate 2021-09-10 08:01:00 20 /min [facility] Oxygen saturation in 2021-09-10 08:01:00 98 /min [facility] Arterial blood by [facility] Pulse oximetry Branch Body temperature 2021-09-10 04:28:51 37.17 Ruthann [facility] Body height 2021-09-10 04:26:00 154.9 cm [facility] Body weight 2021-09-10 04:26:00 81.647 kg [facility] BMI 2021-09-10 04:26:00 34.01 kg/m2 [facility] Systolic blood 2021-09-09 20:06:00 150 [...] /min University of Arterial blood by [place] nicky Pulse oximetry Branch Body weight 2021-09-09 [...] /min University of Arterial blood by [place] nicky Pulse oximetry Branch Body temperature 2020-09-30 [...] /min University of Arterial blood by [place] nicky Pulse oximetry Branch Body temperature 2020-09-30 13:26:00 37.22 Ruthann [facility] Respiratory rate 2020-09-30 13:26:00 16 /min [facility] Body weight 2020-09-30 13:26:00 72.576 kg [facility] BMI 2020-09-30 13:26:00 28.80 kg/m2 [facility] Temperature Oral (F) 2019-01-28 01:16:00 98.6 F [facility] [place] Systolic (mm Hg) 2019-01-28 01:16:00 Estrada rial [place] Diastolic (mm Hg) 2019-01-28 01:16:00 Mem orial [place] Heart Rate 2019-01-28 01:16:00 [facility] [place] Respitory Rate 2019-01-28 01:16:00 Memori al [place] Systolic (mm Hg) 2019-01-27 20:42:00 Estrada rial [place] Diastolic (mm Hg) 2019-01-27 20:42:00 Mem orial [place] Heart Rate 2019-01-27 20:42:00 [facility] [place] Respitory Rate 2019-01-27 20:42:00 Memori al [place] Temperature Oral (F) 2019-01-27 20:42:00 98.5 F [facility] [place] Systolic (mm Hg) 2019-01-27 17:00:00 Estrada rial [place] Diastolic (mm Hg) 2019-01-27 17:00:00 Mem orial [place] Temperature Oral (F) 2019-01-27 17:00:00 98.5 F [facility] [place] Heart Rate 2019-01-27 17:00:00 [facility] [place] Respitory Rate 2019-01-27 [facility] [place] Height 2019-01-22 14:35:00 157.48 cm [facility] BMI Calculated 2019-01-22 14:35:00 Memori al [place] Weight 2019-01-22 14:35:00 [facility] 2019-01-22 04:34:00 [facility] Procedures Procedure Date / Time Performing Clinician Source Performed URINALYSIS 2021-09-10 06:03:00 Neena Bradford o f [facility] URINE DRUG (IMMUNOASSAY) 2021-09-10 06:03:00 Neena Bradford [facility] Medical [facility] nch SCREEN W/O REFLEX XR CHEST 1 VW 2021-09-10 04:57:[address] [facility] CREATINE KINASE 2021-09-10 04:39:[address] [facility] MAGNESIUM 2021-09-10 04:39:[address] [facility] TROPONIN I 2021-09-10 04:39:[address] [facility] COMP. METABOLIC PANEL 2021-09-10 04:39:00 Neena Bradford [facility] ([id number]) [facility] Branch CBC WITH DIFF 2021-09-10 04:39:00 Sanchze [facility] PROTHROMBIN TIME / INR 2021-09-10 04:39:00 Neena Bradford [facility] ACTIVATED PARTIAL 2021-09-10 04:39[facility]00 [facility] PRO-BNP 2021-09-10 04:39:00 Neena Bradford [facility] COVID-19 (ID NOW RAPID 2021-09-10 04:39:00 Neena Bradford [facility] TESTING) Medical Branch TROPONIN I 2021-09-09 21:49:[address] [facility] COMP. METABOLIC PANEL 2021-09-09 21:49:00 Luanne Dumont [facility] ([id number]) Medical Branch LITHIUM 2021-09-09 21:49:[address] [facility] CBC WITH DIFF 2021-09-09 21:49:[address] [facility] CONSENT/REFUSAL FOR 2021-09-09 19:51:22 Doctor Unassigned, No Un [facility] DIAGNOSIS AND TREATMENT Name Medical Branch URINALYSIS 2020-09-30 13:27:[address] [facility] ADC,CLC OR LCC ONLY - 2020-09-30 13:27:00 Chuy Jackson [facility] INFLUENZA A & B DIRECT Medical B ranch ANTIGEN COVID-19 (ID NOW RAPID 2020-09-30 13:27:00 Chuy Jackson [facility] [place] TESTING) Medical Branch Encounters Start End Encounter Admission Attending Care Care Encounter Source Date/Time Date/Time Type Type Clinicians Facility Department ID 2019-01-22 Inpatient E [facility] MED [id number] [facility] W 04:39:00 2021-10-25 2021-10-25 Emergency EM OLIVER Reynaga [id number] [facility] 01:01:00 01:57:00 Lulú [id number] [facility] 2021-09-09 2021-09-10 Emergency Sanchez DEANÍBAL [id number] Univers 22:20:00 03:02:00 Neena WALSH [id number] i ty of [place] 4.2.7.2.686 [place] [facility] [id number] [address] 2021-09-09 2021-09-10 Emergency Lise BRADFORD [facility] ERT [id number] Univers 22:20:00 03:02:00 NEENA tubbs [facility] 2021-09-09 2021-09-10 Emergency Lise BRADFORD [facility] ERT [id number] Univers 22:20:00 03:02:00 NEENA tubbs [facility] 2021-09-09 2021-09-09 Emergency Julia DEANÍBAL [id number] Univers 14:07:00 17:35:00 Luanne WALSH 350.1.13.10 i ty of [place] 4.2.7.2.686 [place] [facility] [id number] [address] 2021-09-09 2021-09-09 Orders Doctor BELKYS [id number] Univers 00:00:00 00:00:00 Only Unassigned, LANA 350.1.13.10 ity of [place] [facility] 4.2.7.2.686 Joe [id number] [place] [address] Branch 2020-09-30 2020-09-30 DENIA Oneal [id number] 07:22:00 08:18:00 Chuy Walsh 350.1.13.10 [place] 4.2.7.2.686 [place] [id number] 2020-09-30 2020-09-30 [facility] [id number] Univers 07:22:00 08:18:00 Chuy Walsh 350.1.13.10 i Alyssa 4.2.7.2.686 [facility] [id number] [place] [address] Branch 2020-09-30 2020-09-30 Emergency X SINGER [facility] ERT [id number] Univers 07:22:00 07:22:00 CHUY tubbs [facility] 2020-04-05 2020-04-05 Outpatient Humaira-Mbayo VFP VFP [id number] [facility] 05:44:00 05:44:00 _A_AH [id number] Family Practic e 2020-04-05 2020-04-05 Outpatient Humaira-Mbayo VFP VFP [id number] [place] 05:44:00 05:44:00 _A_AH 84884 Family Practic e 2020-04-05 2020-04-05 Outpatient Humaira-Mbayo VFP VFP [id number] [place] 05:44:00 05:44:00 _A_AH 85144 Family Practic e 2020-04-05 2020-04-05 Outpatient Humaira-Mbayo VFP VFP [id number] [place] 05:44:00 05:44:00 _A_AH 13692 Family Practic e 2020-03-04 2020-03-14 Inpatient 3 Chente [facility] PSY [id number] 15:38:00 15:25:00 [facility] 2019-12-13 2019-12-13 Outpatient Humaira-Mbayo VFP VFP [id number] [facility] 07:22:00 07:22:00 _A_AH 05738 Family Practic e 2019-01-22 2019-01-28 Inpatient [facility] [id number] Memoria 04:33:00 04:40:00 martin Somers 00 l [facility] 2018-02-21 2018-02-20 Inpatient E [facility] MED [id number] 14:48:00 13:18:00 [facility] Results Test Description Test Time Test Comments [...] 0.1-0.8 N UA RFLX MICR CULT IF [id number] 03:42:00 Test Item Value Reference Range Interpretation [...] /HPF NONE A code = AMORU) TROPONIN-I [id number] 01:52:00 Test Item Value Reference Range Interpretation Comments TROPONIN-I RAPID 0.00 ng/mL 0.00-0.08 N Performed b y certified (test code = mill operator helper at [facility]) Med Ctr Negative: <= 0.0 8 [...] changes in trop onin levels characteristic of [place]. BASIC METABOLIC [id number] 01:47:00 Test Item Value Reference Range Interpretation [...] code = POCGLU) 110 MG/DL UA DIPSTICK [id number] 01:32:00 Test Item Value Reference Range Interpretation Comments UA GLUCOSE DIPSTIC POC NEGATIVE NEGATIVE (test code = GLUUP) UA BILIRUBIN DIPSTICK NEGATIVE NEGATIVE (test code = BILU) UA KETONE DIPSTICK POC 1+ NEGATIVE A (test code = KETUP) UA SPECIFIC GRAVITY (test 1.030 1.005-1.030 N code = SGU) UA BLOOD DIPSTIC POC NEGATIVE NEGATIVE Perform ed by (test code = BLUP) certified mill operator helper at [facility] UA PH DIPSTIC POC (test 5 5.0-7.0 N code = PHUP) UA PROTEIN DIPSTICK POC NEGATIVE NEGATIVE (test code = DPROUP) UA UROBILINIOGEN QUAL NORMAL 0.2-1.0 (test code = UROQL) UA NITRITE DIPSTICK POC NEGATIVE Negative (test code = NITUP) UA LEUKOCYTE ESTERASE W 2+ NEGATIVE A REFLEX (test code = LEUUR) TROPONIN [id number] 05:26:53 Test Item Value Reference Interpretation Comments Range TROPONIN I (test 0.003 ng/mL See_Comment [Automated code = 4002534808) message] The system which generated this result [...] biotin. Lab Interpretation Normal (test code = 75424-7) [facility] [id number] 05:24:16 Test Item Value Reference Range Interpretation Comments NT-proBNP (test code 35 pg/mL See_Comment [Autom ated = 8983623954) message] The system which generated this result transmitted reference range : <=125. The reference range was not used to interpret this result as normal/abnormal . PERRY (test code = PERRY) Biotin has been reported to cause a negative bias, interpret results relative to patient's use of biotin. Lab Interpretation Normal (test code = 32721-5) [facility]2021-[facility]-17 05:16:51 Test Item Value Reference Range Interpretation Comments MAGNESIUM (test code = 6131113711) 1.8 mg/dL 1.7-2.4 Lab Interpretation (test code = Normal 16033-3) [facility]. METABOLIC PANEL ([id number])2021-09-10 05:16:31 Test Item Value Reference Range Interpretation Comments NA (test code = 139 mmol/L 135-145 0899877058) K (test code = 4.0 mmol/L 3.5-5.0 1606708008) CL (test code = 108 mmol/L 98-108 3192876639) CO2 TOTAL (test code 25 mmol/L 23-31 = 8843589855) AGAP (test code = 2-16 8817116542) BUN (test code = 14 mg/dL 7-23 2882873982) GLUCOSE (test code = 88 mg/dL 70-110 0721923072) CREATININE (test code 0.89 mg/dL 0.50-1.04 = 8728339747) TOTAL BILI (test code 0.5 mg/dL 0.1-1.1 = 6712644713) CALCIUM (test code = 10.3 mg/dL 8.6-10.6 2443246857) T PROTEIN (test code 6.9 g/dL 6.3-8.2 = 1167553406) ALBUMIN (test code = 4.3 g/dL 3.5-5.0 1624394179) ALK PHOS (test code = 72 U/L 34-122 7458232978) ALTv (test code = 17 U/L 5-35 1742-6) AST(SGOT) (test code 29 U/L 13-40 = 4570720935) eGFR (test code = mL/min/1.73m2 4423073746) PERRY (test code = PERRY) Association of [...] tests). [facility] [id number] 05:16:16 Test Item Value Reference Range Interpretation Comments CK (test code = 3568341916) 267 U/L 33-194 H Lab Interpretation (test code = Abnormal 52460-2) [facility] THRMPLAS [id number] 05:05:32 Test Item Value Reference Range Interpretation Comments APTT Patient (test See_Comment [Automat ed code = 3173-2) message] The system which generated this result transmitted reference range : 23 - 38 Seconds . The reference range was not used to interpr et this result as normal/abnormal . PERRY (test code = PERRY) The [facility] patient population mean normal value for aPTT is 30 seconds. Lab Interpretation Normal (test code = 54058-6) [facility] / [id number] 05:03:30 Test Item Value Reference Range Interpretation [...] tions. Lab Interpretation (test Normal code = 01069-5) [facility] WITH [id number] 04:57:13 Test Item Value Reference Range Interpretation Comments WBC (test code = See_Comment [Automated 1090-2) message] The sy stem which generated this [...] RDW-SD (test code = 41.2 fL 39.0-49.9 47543-9) RDW-CV (test code = 13.0 % 12.0-15.5 788-0) PLT (test code = See_Comment H [Automated 777-3) message] The sy stem which generated this result transmitted reference range : 166 - 358 10*3/ ?L. The reference r katie was not used to interpret this result as normal/abnormal . MPV (test code = 9.6 fL 9.5-12.9 51500-4) NRBC/100 WBC (test See_Comment [Automat ed code = 5413241278) message] The system which generated this result transmitted reference range : 0.0 - 10.0 /100 WBCs. The refer ence range was not u sed to interpret th is result as normal/abnormal . NRBC x10^3 (test code <0.01 See_Comment [Auto mated = 3719020780) message] The s [employer] which generated this result transmitted reference range : 10*3/?L. The reference range was not used to interpret this result as normal/abnormal . GRAN MAT (NEUT) % 61.9 % (test code = 770-8) IMM GRAN % (test code 0.30 % = 8497518575) LYMPH % (test code = 26.0 % 736-9) MONO % (test code = 9.5 % 5905-5) EOS % (test code = 1.6 % 713-8) BASO % (test code = 0.7 % 706-2) GRAN MAT x10^3(ANC) 5.91 10*3/uL 1.88-7.09 (test code = 4152893293) IMM GRAN x10^3 (test 0.03 10*3/uL 0.00-0.06 code = 0837674579) LYMPH x10^3 (test code 2.48 10*3/uL 1.32-3.29 = 731-0) MONO x10^3 (test code 0.91 10*3/uL 0.33-0.92 = 742-7) EOS x10^3 (test code = 0.15 10*3/uL 0.03-0.39 711-2) BASO x10^3 (test code 0.07 10*3/uL 0.01-0.07 = 704-7) Lab Interpretation Abnormal (test code = 52306-1) [facility] [id number] 22:24:55 Test Item Value Reference Interpretation Comments Range TROPONIN I (test 0.002 ng/mL See_Comment [Automated code = 6667117780) message] The system which generated this result [...] biotin. Lab Interpretation Normal (test code = 78925-7) [facility]21-[facility]16 22:24:34 Test Item Value Reference Range Interpretation Comments Clemons (test code = <0.2 0.6-1.2 L 1213446225) PERRY (test code = PERRY) Toxic Range: ? Greater than 1.2 mmol/L Lab Interpretation (test Abnormal code = 32241-7) [facility] METABOLIC PANEL ([id number])2021-09-09 22:13:54 Test Item Value Reference Range Interpretation Comments NA (test code = 139 mmol/L 135-145 6257256237) K (test code = 4.0 mmol/L 3.5-5.0 5095008674) CL (test code = 105 mmol/L 98-108 7275718007) CO2 TOTAL (test code 26 mmol/L 23-31 = 0035998362) AGAP (test code = 2-16 9802881259) BUN (test code = 11 mg/dL 7-23 1270417240) GLUCOSE (test code = 109 mg/dL 70-110 3550886031) CREATININE (test code 0.71 mg/dL 0.50-1.04 = 4136347985) TOTAL BILI (test code 0.6 mg/dL 0.1-1.1 = 3529721309) CALCIUM (test code = 10.4 mg/dL 8.6-10.6 9814125450) T PROTEIN (test code 7.6 g/dL 6.3-8.2 = 8077359809) ALBUMIN (test code = 4.7 g/dL 3.5-5.0 9452116895) ALK PHOS (test code = 78 U/L 34-122 5002137966) ALTv (test code = 19 U/L 5-35 1742-6) AST(SGOT) (test code 28 U/L 13-40 = 5557450712) eGFR (test code = mL/min/1.73m2 1235531955) PERRY (test code = PERRY) Association of [...] in imaging tests). [facility] WITH OPEV0238-48-86 22:03:32 Test Item Value Reference Range Interpretation Comments WBC (test code = See_Comment [Automated 5930-2) message] The sy stem which generated this result transmitted reference range : 4.30 - 11.10 10*3/?L. The reference range was not used to interpret this result as normal/abnormal . RBC (test code = See_Comment [Automated 482-8) message] The sy stem which generated this [...] RDW-SD (test code = 40.2 fL 39.0-49.9 03987-7) RDW-CV (test code = 12.9 % 12.0-15.5 788-0) PLT (test code = See_Comment H [Automated 777-3) message] The sy stem which generated this result transmitted reference range : 166 - 358 10*3/ ?L. The reference r katie was not used to interpret this result as normal/abnormal . MPV (test code = 9.4 fL 9.5-12.9 L 96184-6) NRBC/100 WBC (test See_Comment [Automat ed code = 5006770502) message] The system which generated this result transmitted reference range : 0.0 - 10.0 /100 WBCs. The refer ence range was not u sed to interpret th is result as normal/abnormal . NRBC x10^3 (test code <0.01 See_Comment [Auto mated = 4418321840) message] The s ystem which generated this result transmitted reference range : 10*3/?L. The reference range was not used to interpret this result as normal/abnormal . GRAN MAT (NEUT) % 67.1 % (test code = 770-8) IMM GRAN % (test code 1.00 % = 5713463544) LYMPH % (test code = 21.4 % 736-9) MONO % (test code = 7.9 % 5905-5) EOS % (test code = 1.8 % 713-8) BASO % (test code = 0.8 % 706-2) GRAN MAT x10^3(ANC) 7.35 10*3/uL 1.88-7.09 H (test code = 1495931579) IMM GRAN x10^3 (test 0.11 10*3/uL 0.00-0.06 H code = 0141219381) LYMPH x10^3 (test code 2.34 10*3/uL 1.32-3.29 = 731-0) MONO x10^3 (test code 0.86 10*3/uL 0.33-0.92 = 742-7) EOS x10^3 (test code = 0.20 10*3/uL 0.03-0.39 711-2) BASO x10^3 (test code 0.09 10*3/uL 0.01-0.07 H = 704-7) Lab Interpretation Abnormal (test code = 23333-3) [facility] - INFLUENZA A & B DIRECT IIIUGNB4428-65-18 14:04:00 Test Item Value Reference Range Interpretation Comments Influenza A (test code = 57221-6) Negative Negative Influenza B (test code = 59447-8) Negative Negative Lab Interpretation (test code = Normal 56158-9) [facility]ID NOW RAPID TESTING)2020-09-30 14:03:00 Test Item Value Reference Range Interpretation Comments SARS-CoV-2 Rapid ID NOW Not Detected Not Detected (test code = 97312-3) PERRY (test code = PERRY) ID NOW COVID-19 Assay is an isothermal nucleic acid amplification test intended for the qualitative detection of nucleic acid from SARS-CoV-2 viral RNA in nasopharyngeal (DIE REPAIR MACHINIST) specimens. It is used under Emergency Use [...] indicated. Lab Interpretation Normal (test code = 83658-8) [facility] 13:55:00 Test Item Value Reference Range Interpretation Comments APPEARANCE (test code = Hazy Clear A 3937952163) COLOR (test code = Yellow Yellow 2190595480) PH (test code = 4.8-8.0 6663602438) SP GRAVITY (test code = 1.003-1.030 9600313404) GLU U QUAL (test code = Normal Normal 9694413451) BLOOD (test code = Negative Negative 9234422651) KETONES (test code = 5 mg/dL Negative A 9789751331) PROTEIN (test code = Negative Negative 2887-8) UROBILIN (test code = 2.0 mg/dL Normal A 6444866049) BILIRUBIN (test code = Negative Negative 7237760919) NITRITE (test code = Negative Negative 6196406589) LEUK ROZINA (test code = 25/uL Negative A 6379536751) RBC/HPF (test code = See_Comment [Autom ated message] 4748323817) The system [employer] generated this result transmit ngozi reference range : 0 - 3 HPF. The refe rence range was not u sed to interpret th is result as normal/abnormal . WBC/HPF (test code = See_Comment [Autom ated message] 8252496349) The system [employer] generated this result transmit ngozi reference range : 0 - 5 HPF. The refe rence range was not u sed to interpret th is result as normal/abnormal . BACTERIA (test code = Few Negative A 1603591714) MUCOUS (test code = Slight Negative LPF A 3900748056) SQ EPITH (test code = HPF 9051441667) Lab Interpretation (test Abnormal code = 76297-8) [facility] Omcezsrqhtn9669-25-49 16:42:24 Test Item Value Reference Range Interpretation [...] = 10-24-2020 N Expiration Dt) Thyroid Stimulating Qjyroax2979-06-49 08:35:16 Test Item Value Reference Range Interpretation Comments TSH (test code = TSH) 1.170 mIU/mL 0.270-4.200 Lipid Vlnkf1467-55-55 08:21:19 Test Item Value Reference Range Interpretation [...] calculation is LDL/HDL Ratio=L DL Calc/HDL Chol MSPFSNZBAEHZ5571-42-67 08:24:008.6[facility] AqnxbihSQUKHSVSNJSQ9951-27-91 08:24:53734Iyelxsbg GoqjqkpGOVCQAUVECMB1690-71-35 08:24:0027[facility] RCLZRWADHEWB1776-16-78 08:24:07697Fvctvomk EwewsxtOSXYOZULNUMK2936-51-25 08:24:003.6[facility] VbibestQTHSEFJRPKDI7586-48-61 08:24:000.70[facility] JTTUNLALURXC9353-41-35 08:24:008.4[facility] OthhcunQRWGLPKWEAKJ0576-35-13 08:24:14270Vhdkxmfc TbuxfnhRZIKNNGZEDUE1316-05-50 08:24:0086[facility] KVXWDMACQZUP1002-60-02 08:24:006[facility] LssfrroJBSJMZMCWP0386-81-41 08:24:00 11.6[facility] LdcdotaRNSYFMSOFK5009-65-67 08:24:003.78[facility]annHEMATOLOGY 2019-01-26 08:24:0013.3[facility] KhddjdbPSRASFHPUD0138-71-90 08:24:0034.0[facility] GvqykqeBUKZRJPPMN4537-90-94 08:24:006.3[facility] ThcpojnAEUUGGXLGW4620-20-47 08:24:00 Test Item Value Reference Range Interpretation Comments MCH (test code = MCH) 30.7 pg 27.0-31.0 [facility] QnptzfqHVZDFLEDFA2863-45-14 08:24:0090.3[facility]annHEMATOLOGY 2019-01-26 08:24:0034.2[facility] QkilumuVTLHOVQQGB8952-31-73 08:24:24033Dmwuuxnw UtvrcjoDJFOZOKTOF0264-79-00 08:24:007.5[facility] GkfzvmeTFNYHQRMJQEX5417-22-15 08:24:008.6[facility] QlbkwtwMCTRSQCDJKUZ7943-06-18 08:24:16978Tioyaxke [facility] UCDHPPASOQKK3273-02-38 08:24:0027[facility] XoommsyXCSCTTYAKEVT6188-03-06 08:24:00 139[facility] XyugnpzDUFIVXCLFSJG2675-20-16 08:24:003.6[facility] HBQEFUGWSLOS9398-76-92 08:24:000.70[facility] QyvkzdsACISHQDYSJWJ0680-61-47 08:24:008.4[facility] GqxpwxqNABBOGTNWMSE2445-01-24 08:24:18028[address] [place] FXLHVYZUTWBH6988-76-08 08:24:0086[facility] HtwllpcPXIPFLUSPPFZ2162-49-50 08:24:00 6[facility] MaihrmyFXJWUAJEXZ1831-18-88 08:24:0011.6[facility]annHEMATOLOGY 2019-01-26 08:24:003.78[facility] ApsvwneVHHABVIOKF0095-71-47 08:24:0013.3[facility] PzmccacLPFYBWQAHS1226-20-12 08:24:0034.0[facility] TxafmyyJEPTRLYLBJ4017-74-82 08:24:006.3[facility] JwsgqaqTRIQBHXGJP1727-90-70 08:24:00 Test Item Value Reference Range Interpretation Comments MCH (test code = MCH) 30.7 pg 27.0-31.0 [facility] XtwxmwrUJRECVQJXV1720-62-31 08:24:0090.3[facility]annHEMATOLOGY 2019-01-26 08:24:0034.2[facility] HdlvhuxIKGOHJSOFN9721-07-99 08:24:81562Hnxhcbmp BulqcqwOAXFQIJPBH5029-81-73 08:24:007.5[facility] HermannCHEM ILCMU6921-43-88 09:14:01391Mnxovfzz HermannCHEM EDDXP1741-44-07 09:14:008.5[facility]annCHEM EYADY2053-61-94 09:14:0013.3[facility]annCHEM LHXSC8674-55-24 09:14:0024 [facility]annCHE[facility] LIRRQ1306-22-48 09:14:09724Axuaxrsp HermannCHEM PANEL 2019-01-25 09:14:0081[facility]annCHEM OKZDP0803-75-05 09:14:002[facility]annCHEM PNFZZ1989-25-57 09:14:003.3[facility]annCHEM SHERT2006-78-00 09:14:000.60[facility]annCHE[facility] CBTMW1149-98-76 09:14:53489Lbxljxqt [facility]annCHEM KGSNO4918-52-02 09:14:22919Guxpuuvg [facility]annCHEM FQRMV0749-55-56 09:14:008.5 [facility]annCHE[facility] YSPMH1654-16-78 09:14:0013.3[facility]annCHEM PANEL 2019-01-25 09:14:0024[facility]annCHEM LOCWQ5798-82-29 09:14:69132Fgpiobjf [facility]annCHEM ENEJD9850-87-81 09:14:0081[facility]annCHEM MRWXY2659-72-58 09:14:002[facility]annCHEM BALHA9889-04-08 09:14:003.3[facility]annCHEM STCXA7026-53-29 09:14:000.60[facility]annCHEM QBHIE0236-62-02 09:14:22836 [facility]annMOLECULAR TZVJWKIYGO2994-95-75 16:22:00Negative (01/23/19 11:22 AM)[facility]annMOLECULAR BNMQBENOWC6370-82-73 16:22:00Negative (01/23/19 11:22 AM)[facility]annCHEM WXYVK4192-10-30 15:42:002.76[facility]annCHEM PANEL 2019-01-23 15:42:002.76[facility]annCHEM WOAWI7115-28-62 12:32:000.9[facility]annCHEM ZAVKI1870-57-20 12:32:000.9[facility]annCHEM LHICS7295-50-05 10:50:002.0[facility]annCHEM LZAVL8585-62-32 10:50:57259Gekwawju HermannCHEM XLDGL6015-62-64 10:50:0023[facility]annCHEM FIXEL8744-52-59 10:50:65185 [facility]annCHE[facility] ISUTX9079-70-49 10:50:003.1[facility]annCHEM PANEL 2019-01-23 10:50:90568Lxqwcvew HermannCHEM OREKK9581-90-46 10:50:005[facility]annCHEM PKJYV2436-03-91 10:50:000.50[facility]annCHEM CKLZG1466-36-49 10:50:007.8[facility]annCHEM LDGMA1532-75-76 10:50:0083[facility]annCHEM YLOYM3504-52-22 10:50:0010.1[facility] NlmrjqsNSEMTKWYDV1193-68-25 10:50:000.2 [facility] EeihjfeTPNBQMTPGL2938-21-59 10:50:000.8[facility]annHEMATOLOGY 2019-01-23 10:50:005.5[facility] FhkiniuCYTVSKMTDK3013-85-33 10:50:002.2[facility] KkqwrnmVINQWMMTWO8236-36-03 10:50:000.1[facility] NdrkjtgBKUAIRQRPN1845-74-90 10:50:0063.6[facility] HlmrvrjXCCZKBZHUK6740-64-90 10:50:008.9[facility] KYYAMPUTUC5968-45-02 10:50:002.3[facility] DewdfgvWHZJZKYXCR3283-67-51 10:50:00 Normal (01/23/19 5:50 AM)[facility] PotxvphNJDODWRBNH3971-06-40 10:50:00Normal (01/23/19 5:50 AM)[facility] HupjgrwTMMQHOCXLQ4745-33-46 10:50:0025.1[facility] DaugrkoEIYXSWLMVF1636-23-71 10:50:0013.1[facility] TeyqggwWYWZQMRSPT0997-66-94 10:50:59057Fpxcplyw YbakdimEIYDJBITMC1261-78-55 10:50:007.7[facility] SUOFNLCACR8081-42-92 10:50:008.6[facility] LlqjnqxULAPCDFLUF0246-59-25 10:50:00 10.0[facility] WqhrttvZMUJYCYMBH3053-84-67 10:50:0034.6[facility]annHEMATOLOGY 2019-01-23 10:50:0028.7[facility] OfrxfejHENKZAWYMB8456-91-70 10:50:0087.8[facility] HpjpqjlXMRHSJBTGN0966-73-49 10:50:00 Test Item Value Reference Range Interpretation Comments MCH (test code = MCH) 30.4 pg 27.0-31.0 [facility] MhwgmhmEBEALYZEOT5725-60-00 10:50:003.27[facility]annCHEM PANEL 2019-01-23 10:50:002.0[facility]annCHEM TLKON0151-20-39 10:50:16549Wnwqvjwx [facility]annCHEM XQHKZ1293-58-47 10:50:0023[facility]annCHEM TUZJY8177-25-63 10:50:65981Zysreorq [facility]annCHEM SFQXM6294-20-84 10:50:003.1[facility]annCHEM YSZSG6402-12-39 10:50:40503Qtsbqvoe [facility]annCHEM IBBVP5168-93-19 10:50:005 [facility]annCHEM EJXEL1936-62-17 10:50:000.50[facility]annCHEM PANEL 2019-01-23 10:50:007.8[facility]annCHEM MPXST0519-58-94 10:50:0083[facility]annCHEM FPRVZ3705-98-87 10:50:0010.1[facility] BtcckqkOIVVDDLAEM8248-15-96 10:50:000.2[facility] RwehflfPXBBYEPSSQ0203-20-52 10:50:000.8[facility] CTWUALLKET3097-52-17 10:50:005.5[facility] UfszbibHLWIHTJYBH7567-11-19 10:50:002.2 [facility] DjxnzknFLGFXQXDOD4673-90-71 10:50:000.1[facility]annHEMATOLOGY 2019-01-23 10:50:0063.6[facility] LfrnrheGFTOAAKLLO8321-01-83 10:50:008.9[facility] ZttkbgkVAFJFWDVUK9253-95-99 10:50:002.3[facility] RthnpwlLXCQHIPLEW8727-00-33 10:50:00Normal (01/23/19 5:50 AM)[facility] JefuljxVCJEGYZEYR1867-53-68 10:50:00 Normal (01/23/19 5:50 AM)[facility] NukxmviHCIBXALPNO3867-34-32 10:50:0025.1[facility] NjsnxpfYYBUMRGZBV3485-68-78 10:50:0013.1[facility] DpzunrrBYROKCKZRO5748-93-44 10:50:92012Vryifbxr FrxxihsFJVMSBJGXZ7196-93-35 10:50:007.7[facility] PRKGDPYJUY6357-53-74 10:50:008.6[facility] VnjfalwLMENLOZKLS4621-38-61 10:50:00 10.0[facility] CzykdskWCBSONBQUO2510-70-62 10:50:0034.6[facility]annHEMATOLOGY 2019-01-23 10:50:0028.7[facility] SmiqkguIXVJAZPMKR7627-46-08 10:50:0087.8[facility] NxiqpxqTQVJUKCBED0156-97-40 10:50:00 Test Item Value Reference Range Interpretation Comments MCH (test code = MCH) 30.4 pg 27.0-31.0 [facility] HbxsibjUIXHPJHQCS7599-26-07 10:50:003.27[facility] HermannCHEM PANEL 2019-01-22 11:32:002.4[facility] HermannCHEM ALXCS1583-13-50 11:32:002.4[facility]annCHEM PCWYI9986-60-30 09:04:003.0[facility]annCHEM OVOAW9188-35-73 09:04:003.0[facility]annURINE AND SSHUC4640-97-23 07:14:00 Test Item Value Reference Range Interpretation Comments UA Spec Grav (test code = UA Spec 1.014 1 Grav) [facility] ISKDF1935-36-56 07:14:00 Test Item Value Reference Range Interpretation Comments UA pH (test code = UA pH) 6.0 1 5.0-8.0 [facility] JYWQG3084-33-65 07:14:00Negative (01/22/19 2:14 AM) [facility] MYSLE5539-92-31 07:14:00Negative *NA*(01/22/19 2:14 AM) [facility] CUQEE1933-56-73 07:14:00Negative *NA*(01/22/19 2:14 AM) [facility] GFPJP9157-83-24 07:14:00Negative *NA*(01/22/19 2:14 AM) [facility] TMDJS6165-27-52 07:14:00Negative (01/22/19 2:14 AM) [facility] AXKZR5627-46-98 07:14:00Negative (01/22/19 2:14 AM) [facility] YTVND7496-98-44 07:14:00Negative (01/22/19 2:14 AM) [facility] JLEAE1567-45-05 07:14:00<1[facility] GKVIA3559-23-35 07:14:0025[facility] TZDYR4957-20-79 07:14:002 [facility] YRJJG8529-49-65 07:14:00Light Yellow *NA*(01/22/19 2:14 AM)[facility] ERMOV6102-58-30 07:14:00Clear (01/22/19 2:14 AM) [facility] TCZRG4230-68-66 07:14:00 Test Item Value Reference Range Interpretation Comments UA Spec Grav (test code = UA Spec 1.014 1 Grav) [facility] ZQVYS2327-01-10 07:14:00 Test Item Value Reference Range Interpretation Comments UA pH (test code = UA pH) 6.0 1 5.0-8.0 [facility] YPMDA7163-97-07 07:14:00Negative (01/22/19 2:14 AM) [facility] HSELO4755-55-62 07:14:00Negative *NA*(01/22/19 2:14 AM) [facility] IKISB1322-12-67 07:14:00Negative *NA*(01/22/19 2:14 AM) [facility] EFSVK8798-36-90 07:14:00Negative *NA*(01/22/19 2:14 AM) [facility] XWNLK3742-30-95 07:14:00Negative (01/22/19 2:14 AM) [facility] UWXCG8405-21-29 07:14:00Negative (01/22/19 2:14 AM) [facility] MFLCO8619-01-03 07:14:00Negative (01/22/19 2:14 AM) [facility] BQUUA6805-25-68 07:14:00<1[facility] DDUJU0656-75-43 07:14:0025[facility] MKGOT9179-69-12 07:14:002 [facility] VNGQI6325-57-65 07:14:00Light Yellow *NA*(01/22/19 2:14 AM)[facility] PRKQD0124-75-96 07:14:00Clear (01/22/19 2:14 AM) [facility] FvmkvzkXPPPU7793-68-24 05:16:000.90[facility] AntanniCFAHK3128-38-78 05:16:000.90[facility]annCHEM BRJSJ2936-40-14 05:01:0025[facility]annCHEM LLHMN4778-78-75 05:01:008.1[facility]annCHEM JBXCJ4259-25-44 05:01:00 Test Item Value Reference Range Interpretation Comments B/C Ratio (test code = B/C Ratio) 20 1 6-25 [facility]annCHE[facility] JLLMX0650-28-53 05:01:00 Test Item Value Reference Range Interpretation Comments A/G Ratio (test code = A/G Ratio) 1.0 1 0.7-1.6 [facility]annCHE[facility] KZDTT9247-87-41 05:01:004.1[facility]annCHEM PANEL 2019-01-22 05:01:006.90[facility] TnjqatmZBXGNGXHKGMJO3658-35-20 05:01:00Negative *NA*(01/22/19 12:01 AM)[facility] XmhcuvnPYSOADDYGM3183-84-14 05:01:000.1[facility] PcywgmpHOTKHBOBUS1285-89-87 05:01:000.7[facility] NqlqxthWJWAABTAAK5257-99-71 05:01:000.0[facility] QctrqzsUZYVDZNERJ8989-40-15 05:01:000.0[facility] ETZCCQHWVQ4529-35-80 05:01:000.9[facility] TfznwjsBEPOMOMSVW8247-56-16 05:01:008.6 [facility] XkpnzooWSSOZSDGSB2985-68-10 05:01:000.6[facility]annHEMATOLOGY 2019-01-22 05:01:0086.5[facility] XwoofskIGHDNXHLFK6183-37-67 05:01:005.7[facility] IounfviYZGAFBWCON6781-36-03 05:01:006.9[facility] UvhuxhwLKYGZRWWQC6646-54-52 05:01:009.9[facility] JkvwrrpMNHSZNGJDD0284-05-89 05:01:0032.8[facility] CHMIFZNDDO9256-65-49 05:01:0013.6[facility] ZgyllifNWTCBHLOVZ7039-96-67 05:01:00 443[facility] FfdnworBXMKXPOBWP4086-47-17 05:01:007.3[facility]annHEMATOLOGY 2019-01-22 05:01:0014.0[facility] TpfrazxAKPENDWHVM8448-04-95 05:01:004.85[facility] MkbaryqTCXSUZRHPD1822-88-03 05:01:0042.7[facility] CzwetsjZTOTZTJBRI8489-30-02 05:01:00 Test Item Value Reference Range Interpretation Comments MCH (test code = MCH) 29.0 pg 27.0-31.0 [facility] NyhkxrjZIIEPVQMUF8422-09-83 05:01:0088.2[facility]annHEMATOLOGY 2019-01-22 05:01:00 Test Item Value Reference Range Interpretation Comments INR (test code = INR) 0.96 1 0.85-1.17 [facility] ZghzimjDUXVWWFIUC0069-91-02 05:01:00 Test Item Value Reference Range Interpretation Comments PT (test code = PT) 12.6 s 12.0-14.7 [facility] SxzlbldRDYZENBQQG0104-59-01 05:01:00 Test Item Value Reference Range Interpretation Comments PTT (test code = PTT) 25.9 s 22.9-35.8 [facility] KOLDMZY6745-11-90 05:01:00Negative (01/22/19 12:01 AM) [facility]annCARDIAC ERAVXXC5968-45-82 05:01:00<0.02[facility] CARDIAC ZSXMAIU7157-21-74 05:01:0049[facility]annCHEM OVPYK6840-06-58 05:01:000.6[facility]annCHEM NUNDT4920-14-52 05:01:91692Bfdvnpxo HermannCHEM VXFIK2782-15-35 05:01:004.0[facility]annCHEM FOMXV4864-34-17 05:01:0017 [facility]annCHE[facility] IRGHR5303-33-48 05:01:0025[facility]annCHEM PANEL 2019-01-22 05:01:008.1[facility]annCHEM ZXCLQ4494-97-86 05:01:00 Test Item Value Reference Range Interpretation Comments B/C Ratio (test code = B/C Ratio) 20 1 6-25 [facility]annCHE[facility] SZGIR0551-89-59 05:01:00 Test Item Value Reference Range Interpretation Comments A/G Ratio (test code = A/G Ratio) 1.0 1 0.7-1.6 [facility]annCHE[facility] NOPLG7822-27-86 05:01:004.1[facility]annCHEM PANEL 2019-01-22 05:01:006.90[facility] AakpbshJFYCAVBZHIPDH6987-72-54 05:01:00Negative *NA*(01/22/19 12:01 AM)[facility] XgwncdvJQONXSWOKW6548-80-46 05:01:000.1[facility] EgykblzSEUACZHCYI1344-42-86 05:01:000.7[facility] UhumxqyFKTPPXDOTC9154-51-61 05:01:000.0[facility] JengojuGEWXWVOPHD2003-21-43 05:01:000.0[facility] ILJDITIXVR9599-61-93 05:01:000.9[facility] IudffbmREUESKIHUG9784-60-06 05:01:008.6 [facility] CffbvyjMAZLAMBSLR9910-36-02 05:01:000.6[facility]annHEMATOLOGY 2019-01-22 05:01:0086.5[facility] JpeceotKUZMXZIGDE7531-31-70 05:01:005.7[facility] YamdiqyIQFEALFIPV6802-15-75 05:01:006.9[facility] UhxzzqaRDTXMNIJOJ2809-20-07 05:01:009.9[facility] GiknvooUZOJPEYSHQ9197-32-83 05:01:0032.8[facility] JPGRCETZPB5830-02-49 05:01:0013.6[facility] KpiwdamOKURGSYVVT1672-12-62 05:01:00 443[facility] RlazswpZFRFNLNHKD6419-43-45 05:01:007.3[facility]annHEMATOLOGY 2019-01-22 05:01:0014.0[facility] FthpgjmIACOOAWPCO8417-21-82 05:01:004.85[facility] HxylfwyOHGWUQCEOU9424-81-46 05:01:0042.7[facility] TjfjdhpCUYPGLOTGH1261-17-65 05:01:00 Test Item Value Reference Range Interpretation Comments MCH (test code = MCH) 29.0 pg 27.0-31.0 [facility] MdwbdrtTAIHMVYAUO6584-63-36 05:01:0088.2[facility] 2019-01-22 05:01:00 Test Item Value Reference Range Interpretation Comments INR (test code = INR) 0.96 1 0.85-1.17 [facility]cc[facility]qySTCYACXZYE3092-88-06 05:01:00 Test Item Value Reference Range Interpretation Comments PT (test code = PT) 12.6 s 12.0-14.7 [facility]NfqvwhxDUBAUUJYJF3954-85-69 05:01:00 Test Item Value Reference Range Interpretation Comments PTT (test code = PTT) 25.9 s 22.9-35.8 [facility] KTPXWBK5948-34-24 05:01:00Negative (01/22/19 12:01 AM) [facility] LAZDHTE6830-22-57 05:01:00<0.02[facility] CARDIAC GLNKDMU4874-80-36 05:01:0049[facility]annCHEM NYOSQ6033-38-31 05:01:000.6[facility]annCHEM HPRVK2706-13-80 05:01:93229Emsdbwas HermannCHEM QIOTA8756-53-72 05:01:004.0[facility]annCHEM VKZES8853-37-65 05:01:0017 [id number] 14:36:00 Test Item Value Reference Range Interpretation [...] 0.00-0.01 N code = ETOHU) Comprehensive Metabolic [id number] 14:36:00 Test Item Value Reference Range Interpretation [...] ofage have not been validated by fredy pisano MDRD study and nyasia lee be interpretedwith caution.eGFR Re sult Interpretation: eGFR > or = 60 is in t he Normal RangeeGF R < 60 may mean kidney diseaseeGFR < 1 5 may mean kidney failureRange s recommended by the National Kid[employer] Foundation,http ://nkd ep.nih.gov Urinalysis [id number] 14:32:00 Test Item Value Reference Range Interpretation Comments Color (test code = COLOR) Yellow Yellow,Straw,Pl N yellow Clarity (test code = Clear Clear N CLAR) Specific [place] (test 1.024 1.001-1.035 N code = SPGR) [...] code = Few /HPF BACT) CBC with [id number] 14:21:00 Test Item Value Reference Range Interpretation [...] code = ALYMPH) 3.0 K/cumm 0.5-4.6 N Clinch Abs (test code = AMONO) 0.5 K/cumm 0.0-1.2 N Eos Abs (test code = AEOS) 0.19 K/cumm 0.00-0.74 N Baso Abs (test code = ABASO) 0.1 K/cumm 0.00-0.21 N
--- NOTE | 2021-10-31 20:59 | ER ---
Nurse's Notes [facility] Name: Tiffany Quinn Age: 51 yrs Sex: Female : 1970 Arrival Date: 10/31/2021 Time: 19:24 Bed Waiting Private MD: Diagnosis: ED Course: 10/31 19:24 Patient arrived in ED. bp1 20:35 Bill Hay PA is PHCP. cp 20:35 Demarcus Mancilla MD is Attending Physician. cp Administered Medications: No medications were administered Outcome: 20:58 Patient left the ED. vc1 Signatures: Bill Hay PA PA cp Sofia Urban bp1 Janie Abebe RN RN vc1
--- NOTE | 2021-11-01 20:59 | EDPHYS ---
Physician Documentation [facility] Name: Tiffany Quinn Age: 51 yrs Sex: Female : 1970 Arrival Date: 10/31/2021 Time: 19:24 Bed Waiting Private MD: ED Physician Demarcus Mancilla HPI: 10/31 20:50 This 51 yrs old Female presents to ER via Unassigned with complaints of Headache, cp Nausea. 20:50 The patient complains of pain to the top of head and forehead. The patient describes cp the headache as aching. Onset: The symptoms/episode began/occurred this morning. Associated signs and symptoms: Pertinent positives: nausea, Pertinent negatives: altered mental status, fever, neck stiffness, sinus congestion, sinus tenderness, vision changes, vomiting. Severity of symptoms: in the emergency department the pain is unchanged, despite home interventions. Headache History: The patient has had previous headaches and this one is similar to previous episodes. Patient returns to ED after being seen earlier today with complaints of headache returning. Patient reports Fioricet improved headache earlier today. ROS: 20:53 Constitutional: Negative for body aches, chills, fever, poor PO intake. cp 20:53 Eyes: Negative for injury, pain, redness, and discharge. cp 20:53 ENT: Negative for drainage from ear(s), ear pain, sore throat, difficulty swallowing, difficulty handling secretions. 20:53 Cardiovascular: Negative for chest pain. 20:53 Respiratory: Negative for cough, shortness of breath, wheezing. 20:53 Abdomen/GI: Positive for nausea, Negative for abdominal pain, vomiting, diarrhea. 20:53 Neuro: Positive for headache, Negative for altered mental status, weakness. 20:53 All other systems are negative. Exam: 20:55 Constitutional: The patient appears in no acute distress, alert, awake, comfortable, cp non-toxic, well developed, well nourished. 20:55 Head/Face: Normocephalic, atraumatic. cp 20:55 Eyes: Periorbital structures: appear normal, Pupils: equal, round, and reactive to light and accomodation, Extraocular movements: intact throughout, Sclera: no appreciated abnormality, Lids and lashes: appear normal, bilaterally. 20:55 ENT: External ear(s): are unremarkable, Nose: is normal, Mouth: Lips: moist, Oral mucosa: moist, Posterior pharynx: Airway: no evidence of obstruction, patent. 20:55 Neck: ROM/movement: is normal, is supple, without pain, no range of motions limitations. 20:55 Chest/axilla: Inspection: normal. 20:55 Respiratory: the patient does not display signs of respiratory distress, Respirations: normal, no use of accessory muscles, labored breathing, is not present. 20:55 Abdomen/GI: Exam negative for discomfort, distension, guarding, Inspection: abdomen appears normal. 20:55 Neuro: Orientation: is normal, Mentation: able to follow commands, Motor: moves all fours, strength is normal. 20:55 Psych: Behavior/mood is cooperative, Affect is calm, Patient has no thoughts/intents to harm self or others. MDM: Administered Medications: No medications were administered Disposition: 11/01 03:46 Co-signature as Attending Physician, Demarcus Mancilla MD I agree with the assessment and kdr plan of care. Disposition Summary: 10/31/21 20:58 Eloped Disposition: post triage evaluation and consult vc1 Reason: wait time vc1 Signatures: Demarcus Mancilla MD MD kdr Bill Hay PA PA cp Calcote, Vanessa RN RN vc1
== END 2021-10-31 20:58 | disposition left against medical advice (07) ==
LOC: ER 19:20
DX: Z02.89 Encounter for other administrative examinations (principal)

== ENCOUNTER 2021-11-01 15:56 | Emergency (ER) | payer OTHER ==
--- OUTSIDE RECORDS SUMMARY | 2021-11-01 16:02 | XMS REPORT | Continuity of Care Document ---
:1970 Author Organization [facility] t Address [address] [place] [address] Care Team Providers Name Role Phone UNKNOWN [...] Number Effective Date Expiration Date S nasim [facility] [place] - [id number] 2020 [employer] 00:00:00 (MEDICARE REPLACEMENT/ADVANT AGE - HMO) Problems Condition Condition Condition Status Onset Resolution Last Treating Co mments Source Name Details Category Date Date Treatment Clinician Date LOW PB Diagnosis Active 2019-01-22 Mem oria 01-21 01:52:00 l LOW PB 00:00: [place] 00 Active 01/21/[address] [facility] INFECTIOUS Diagnosis Active 2019-02-06 Memoria GASTROENTE 01-21 08:58:00 l RITIS AND 00:00: [place] COLITIS INFECTIOUS 00 GASTROENTE RITIS AND COLITIS Active 01/21/[address] [facility] Irregular Irregular Disease Active Uni vers menstrual menstrual 8-15 ity of cycle cycle 00:00: [address] Skin Skin Disease Active Univers lesion lesion 8-15 ity of 00:00: [address] Psychiatri Psychiatri Disease Active U nivers c disorder c disorder 8-15 it y of 00:00: [address] Well woman Well woman Disease Active U nivers exam with exam with 8-15 ity of routine routine 00:00: [place] gynecologi gynecologi 00 Me dical nicky exam nicky exam Branch INFECTIOUS Diagnosis Active 2019-02-06 Memoria GASTROENTE 08:58:00 l RITIS AND Yonis COLITIS, INFECTIOUS GASTROENTE RITIS AND COLITIS, Active [facility] Allergies, Adverse Reactions, Alerts Allergy Allergy Status Severity Reaction(s) Onset Inactive Treating Comm ents Source Name Type Date Date Clinician promanaa DA Active [place] ANXIETY [facility] zine 1-01 Clear 00:00: Catherine 00 [facility] prometha DA Active U [facility] zine 7-04 Clear 00:00: Catherine 00 [facility] NO KNOWN Drug Active Univers ALLERGIE Class ity of S [facility] Phenerga Phenerga Active [place] [facility] [place] [facility] [place] Social History Social Habit Start Date Stop Date Quantity Comments Source History of Cigarette Smoker Universi ty of tobacco use [facility] Tobacco Comment 2-3 cigs a day Unive rsity of [facility] Exposure to Not sure University of SARS-CoV-2 [facility] (event) [place] Tobacco use and 2016-06-08 2016-06-08 Never used Universit y of exposure 00:00:00 00:00:00 [facility] Alcohol intake 2016-06-08 2016-06-08 0 /d University of 00:00:00 00:00:00 [facility] Sex Ass[birth year] At [birth year] Universit y of 00:00:00 00:00:00 [facility] Smoking Status Start Date Stop Date Source Social History 2019-01-22 05:00:12 Jeanne urena Current some day smoker 2016-06-08 00:00:00 [facility] Medications Ordered Filled Start Stop Current Ordering Indication Dosage Frequency Signature Comments Components Source Medication Medication Date Date Medication? Clinician (SIG) Name Name cefTRIAXone 2020-10 No 1000mg 1,000 mg, Univers (ROCEPHIN) 11-10 IV ity of 1,000 mg in 08:30: 08:01 Piggyback, [place] NaCl 0.9% 00 :00 ONCE, 1 Medical (NS) 50 mL dose, On Bran h MINI-BAG Wed09/10/21 at 0230, Administer over 30 Minutes, 50 mL
Reas on for Anti-Infec tive: Documented Infection< br>Documen ngozi Infection Site: Urine<br&g t;Duration of Therapy: Other (see Comments) ondansetron 2020-10 No 4mg 4 mg, Slow Univers (ZOFRAN 11-10 IV Push, ity of (PF)) 06:45: 05:54 ONCE, 1 [place] injection 4 00 :00 dose, On Medi nicky mg Wed [place] 09/10/21 at 0045, RANDA NaCl 0.9% 2020-10- No 1000mL at 999 Uni vers (NS) bolus 11-10 mL/hr, ity of infusion 05:30: 05:30 1,000 mL, Joe as 1,000 mL 00 :00 IV Medical Infusion, Branch ONCE, 1 dose, On 09/09/21 at 2330, RANDA amoxicillin 2020-10 Yes [id number] 500mg Take 1 Univers 500 mg 11-10 capsule by ity of capsule 00:00: mouth 3 [place] 00 (three) Medical times Branch daily. ondansetron 2019-10- No 4mg 4 mg, Univ ers (ZOFRAN-ODT 12-01 Oral, ity of ) 15:15: 14:16 ONCE, 1 [place] disintegrat 00 :00 dose, Mon Med ical ing tablet 09/30/20 at [facility] 4 mg 0915, Routine ondansetron 2019-10 2020- No 4mg 4 mg, [facility] (ZOFRAN-ODT 2-07 12-07 Oral, ity of ) 14:30: 13:32 ONCE, 1 [place] disintegrat 00 :00 dose, Mon Med ical ing tablet 09/30/20 at [facility] 4 mg 0830, Routine ondansetron 2019-10 Yes [id number] 4mg Take 1 Univers 4 mg 2-07 tablet by ity of disintegrat 00:00: mouth [place] ing tablet 00 every 8 Medica l (eight) Branch hours as needed for Nausea and Vomiting (N/V). ondansetron 2019-10 Yes [id number] 4mg Take 1 Univers 4 mg 2-07 tablet by ity of disintegrat 00:00: mouth [place] ing tablet 00 every 8 Medica l (eight) Branch hours as needed for Nausea and Vomiting (N/V). ondansetron 2019-10 Yes [id number] 4mg Take 1 Univers 4 mg 2-07 tablet by ity of disintegrat 00:00: mouth [place] ing tablet 00 every 8 Medica l (eight) Branch hours as needed for Nausea and Vomiting (N/V). ondansetron 2019-10 Yes [id number] 4mg Take 1 Univers 4 mg 2-07 tablet by ity of disintegrat 00:00: mouth [place] ing tablet 00 every 8 Medica l (eight) Branch hours as needed for Nausea and Vomiting (N/V). ciprofloxac Yes 500 mg = 1 Memoria in 500 mg 4-04 tab, PO, l oral tablet 17:35: [id number], X [place] 00 4 day, # 8 tab, 0 Refill(s) Ondansetron 2019 Yes 4 mg = 1 Me moria 4 MG Oral 4-04 tab, PO, l Tablet 17:35: Q6H, PRN [place] [Zofran] 00 Nausea/Vom iting, # 20 tab, [...] 4-04 tab, PO, l oral tablet 17:35: [id number], X [place] 00 4 day, # 8 tab, 0 Refill(s) Ondansetron 2019- Yes 4 mg = 1 Me moria 4 MG Oral 4-04 tab, PO, l Tablet 17:35: Q6H, PRN [place] [Zofran] 00 Nausea/Vom iting, # 20 tab, [...] 4-03 (Same as: l 13:26: K-Dur 20) [place] 00 "Do Not Crush" Give with food and full glass of water For patients unable to swallow tablet, dissolve in one half glass of water. Allow about 2 minutes for the tablets to disintegra te. Stir before giving to prepare slurry and administer . Please exclude Patient s with feeding tube less than 14 [place] (Dobhoff, J-tube etc) and pediatric and patients. [...] s with feeding tube less than 14 [place] (Dobhoff, J-tube etc) and pediatric and patients. [...] ia - (Same As: l 18:00: KlonoPIN) [place] 00 Clonazepam No Notes: Memor ia 4- (Same As: l 18:00: KlonoPIN) Y[place] 00 Flagyl No Notes: Memoria - (Same as: l 15:00: Flagyl) [place] Take with food/ avoid alcohol Cipro No Notes: May Memori a - interfere l 15:00: w/enteral Yonis 00 feedings - Take 1 hr before or 2 hrs after antacids, dairy pdt & minerals. On empty stomach. Flagyl No Notes: Memoria 4- (Same as: l 15:00: Flagyl) [place] 00 Take with food/ avoid alcohol Cipro [...] MG 4-01 PO, l Oral Tablet 14:20: [id number], 0 [place] [Cipro] 00 Refill(s) potassium 2019 Yes 40 mEq, Memor ia chloride 20 4-01 PO, ONCE, l mEq oral 14:20: 0 [place] tablet, 00 Refill(s) extended release Metronidazo No 500 mg, Mem oria le 500 MG 4-01 PO, l Oral Tablet 14:20: [id number], 0 H ermann [Flagyl] 00 Refill(s) Ciprofloxac No 500 mg, Mem oria in 500 MG 4-01 PO, l Oral Tablet 14:20: [id number], 0 [place] [Cipro] 00 Refill(s) Potassium No Notes: Memori [...] s with feeding tube less than 14 [place] (Dobhoff, J-tube etc) and pediatric and patients. [...] s with feeding tube less than 14 [place] (Dobhoff, J-tube etc) and pediatric and patients. [...] tab, PO, l Tablet 21:08: BID, 0 [place] [Risperdal] 00 Refill(s) Strattera Yes 0.5 mg/kg, [...] 01-22 Route: IM, l 09:47: Drug form: [place] 00 PDR/INJ, PRN, Dosing Weight 75.994, kg, PRN Blood Glucose Results, Start date: 01/22/19 4:47:00 CDT, Duration: 30 day, Stop date: 02/21/19 4:46:00 CDT Dextrose No 12.5 gm, Memor ia 50% Syringe 01-22 25 mL, l 09:47: Route: [place] 00 IVP, Drug Form: INJ, Dosing Weight [...] Memoria 3-31 (Same as: l 06:10: Zosyn) [place] 00 Dosing based on Piperacill in component [...] moria IV 3-31 1,000 l 05:44: ml/hr, [place] 00 Infuse Over: 1 hr, Route: IV, [...] Memoria 3-31 (Same as: l 04:52: Zofran) [place] 00 MEDICATION WASTE Product Size: 4 mg Product Wasted: ___ mg Saline No Notes: Memoria Flush 0.9% 3-31 Same as: l 04:52: BD [place] 00 Posiflush Sterile NS (Bolus) No 1,000 [...] tablet by ity of HYDROCHLORI 00:00: mouth [place] DE,) 4 mg 00 every 8 Medical tablet (eight) Branch hours. ondansetron 2017-0 Yes 4mg Take 1 Univ ers (ZOFRAN, 1-27 tablet by ity of HYDROCHLORI 00:00: mouth [place] DE,) 4 mg 00 every 8 Medical tablet (eight) Branch hours. ibuprofen 2016-0 Yes 200mg Take 200 Uni vers (ADVIL) 200 8-15 mg by ity of mg tablet 19:02: mouth [place] [address] every 6 Medical (six) Branch hours as needed. CLONAZEPAM 2016-0 Yes Take by Uni vers (KLONOPIN 8-15 mouth. ity of ORAL) 19:02: [address] Branch CITALOPRAM 2016-0 Yes Take by Uni vers HYDROBROMID 8-15 mouth. ity of E 19:02: [place] (CITALOPRAM 27 Medical ORAL) Branch ibuprofen 2016-0 Yes 200mg Take 200 Uni vers (ADVIL) 200 8-15 mg by ity of mg tablet 14:02: mouth [place] [address] every 6 Medical (six) Branch hours as needed. CLONAZEPAM 2016-0 Yes Take by Uni vers (KLONOPIN 8-15 mouth. ity of ORAL) 14:02: [address] Branch CITALOPRAM 2016-0 Yes Take by Uni vers HYDROBROMID 8-15 mouth. ity of E 14:02: [place] (CITALOPRAM 27 Medical ORAL) Branch ibuprofen 2016-0 Yes 200mg Take 200 Uni vers (ADVIL) 200 8-15 mg by ity of mg tablet 14:02: mouth [place] [address] every 6 Medical (six) Branch hours as needed. CLONAZEPAM 2016-0 Yes Take by Uni vers (KLONOPIN 8-15 mouth. ity of ORAL) 14:02: [address] Branch CITALOPRAM 2016-0 Yes Take by Uni vers HYDROBROMID 8-15 mouth. ity of E 14:02: [place] (CITALOPRAM 27 Medical ORAL) Branch ibuprofen 2016-0 Yes 200mg Take 200 Uni vers (ADVIL) 200 8-15 mg by ity of mg tablet 14:02: mouth [place] [address] every 6 Medical (six) Branch hours as needed. CLONAZEPAM 2016-0 Yes Take by Uni vers (KLONOPIN 8-15 mouth. ity of ORAL) 14:02: [place] 27 Medical Branch CITALOPRAM Yes Take by Uni vers HYDROBROMID 8-15 mouth. ity of E 14:02: [place] (CITALOPRAM 27 Medical ORAL) Branch misoprostol Yes [...] ity of mg tablet 00:00: every 6 [place] 00 (six) Medical hours as Branch needed [...] ity of mg tablet 00:00: every 6 [place] 00 (six) Medical hours as Branch needed for Pain (scale 4-6). naproxen 2014-10 Yes 500mg Take 1 Tab Un parul (NAPROSYN) 1-16 by mouth 2 ity of 500 mg 00:00: (two) [place] tablet 00 times Medical daily with Branch meals. Vital Signs Vital Name Observation Time Observation Value Comments Source Systolic blood 2021-09-10 08:01:00 138 mm[Hg] [facility] Diastolic blood 2021-09-10 08:01:00 97 mm[Hg] [facility] [place] Heart rate 2021-09-10 08:01:00 87 /min [facility] Respiratory rate 2021-09-10 08:01:00 20 /min [facility] Oxygen saturation in 2021-09-10 08:01:00 98 /min [facility] Arterial blood by [facility] Pulse oximetry Branch Body temperature 2021-09-10 04:28:51 37.17 Ruthann [facility] Body height 2021-09-10 04:26:00 154.9 cm [place] [...] 99 /min University of Arterial blood by [place] [employer] [facility] Pulse oximetry Branch Body weight 2021-09-09 [...] /min University of Arterial blood by [place] [employer] nicky Pulse oximetry Branch Body temperature 2020-09-30 [...] /min University of Arterial blood by [place] [employer] nicky Pulse oximetry Branch Body temperature 2020-09-30 13:26:00 37.22 Ruthann [facility] Respiratory rate 2020-09-30 13:26:00 16 /min [facility] Body weight 2020-09-30 13:26:00 72.576 kg [facility] BMI 2020-09-30 13:26:00 28.80 kg/m2 [facility] Temperature Oral (F) 2019-01-28 01:16:00 98.6 F [facility] [place] Systolic (mm Hg) 2019-01-28 01:16:00 Estrada rial [place] Diastolic (mm Hg) 2019-01-28 01:16:00 Mem orial [place] Heart Rate 2019-01-28 01:16:00 [facility] [place] Respitory Rate 2019-01-28 01:16:00 Memori al [place] Systolic (mm Hg) 2019-01-27 20:42:00 Estrada rial [place] Diastolic (mm Hg) 2019-01-27 20:42:00 Mem orial [place] Heart Rate 2019-01-27 20:42:00 [facility] [place] Respitory Rate 2019-01-27 20:42:00 Memori al [place] Temperature Oral (F) 2019-01-27 20:42:00 98.5 F [facility] [place] Systolic (mm Hg) 2019-01-27 17:00:00 Estrada rial Yonis Diastolic (mm Hg) 2019-01-27 17:00:00 Mem orial [place] Temperature Oral (F) 2019-01-27 17:00:00 98.5 F [facility] [place] Heart Rate 2019-01-27 17:00:00 [facility] [place] Respitory Rate 2019-01-27 [facility] Height 2019-01-22 14:35:00 157.48 cm [facility] BMI Calculated 2019-01-22 14:35:00 Memori al [place] Weight 2019-01-22 14:35:00 [facility] Weight 2019-01-22 04:34:00 [facility] Procedures Procedure Date / Time Performing Clinician Source Performed URINALYSIS 2021-09-10 06:03:00 Neena Bradford o f [facility] URINE DRUG (IMMUNOASSAY) 2021-09-10 06:03:00 Neena Bradford [facility] Medical [facility] SCREEN W/O REFLEX XR CHEST 1 VW 2021-09-10 04:57:30 Neena Bradford [facility] CREATINE KINASE 2021-09-10 04:39:00 Neena Bradford [facility] MAGNESIUM 2021-09-10 04:39:00 Sanchez Neena [facility] TROPONIN I 2021-09-10 04:39:00 Neena Bradford [facility] COMP. METABOLIC PANEL 2021-09-10 04:39:00 Neena Bradford [facility] ([id number]) [facility] Branch CBC WITH DIFF 2021-09-10 04:39:00 Sanchez [facility] PROTHROMBIN TIME / INR 2021-09-10 04:39:00 Neena Bradford [facility] ACTIVATED PARTIAL 2021-09-10 04:39:00 [facility] N-TERMINAL PRO-BNP 2021-09-10 04:39:00 Neena Bradford [facility] COVID-19 (ID NOW RAPID 2021-09-10 04:39:00 Neena Bradford [facility] TESTING) Medical Branch TROPONIN I 2021-09-09 21:49:00 Luanne Dumont [facility] COMP. METABOLIC PANEL 2021-09-09 21:49:00 Luanne Dumont [facility] ([id number]) Medical Branch LITHIUM 2021-09-09 21:49:00 Luanne Dumont [facility] CBC WITH DIFF 2021-09-09 21:49:00 DumontLuanne buenrostro [facility] CONSENT/REFUSAL FOR 2021-09-09 19:51:22 Doctor Unassigned, No Un [facility] DIAGNOSIS AND TREATMENT Name Medical Branch URINALYSIS 2020-09-30 13:27:00 Singer Chuy [facility] ADC,CLC OR LCC ONLY - 2020-09-30 13:27:00 Chuy Jackson [facility] INFLUENZA A & B DIRECT Medical B ranch ANTIGEN COVID-19 (ID NOW RAPID 2020-09-30 13:27:00 Chuy Jackson [facility] [place] TESTING) Medical Branch Encounters Start End Encounter Admission Attending Care Care Encounter Source Date/Time Date/Time Type Type Clinicians Facility Department ID 2019-01-22 Inpatient E [facility] MED [id number] [facility] 04:39:00 2021-10-25 2021-10-25 Emergency EM OLIVER Reynaga [id number] [facility] 01:01:00 01:57:00 Lulú [id number] [facility] 2021-09-09 2021-09-10 [facility] [id number] Univers 22:20:00 03:02:00 Neena WALSH [id number] i ty of [place] 4.2.7.2.686 [facility] [id number] [address] 2021-09-09 2021-09-10 Emergency Lise BRADFORD [facility] ERT [id number] Univers 22:20:00 03:02:00 NEENA tubbs [facility] 2021-09-09 2021-09-10 Emergency [facility] [id number] Univers 22:20:00 03:02:00 NEENA tubbs [facility] 2021-09-09 2021-09-09 Emergency Julia [facility] [id number] Univers 14:07:00 17:35:00 Luanne WALSH [id number] i ty [facility] [id number] [facility] [id number] [address] 2021-09-09 2021-09-09 Orders Doctor BELKYS [id number] Univers 00:00:00 00:00:00 Only Unassigned, LANA [id number] ity of [place] [facility] 4.2.7.2.686 Joe as [phone] [place] [address] Branch 2020-09-30 2020-09-30 Emergency Singer [facility] [id number] Univers 07:22:00 08:18:00 Chuy Walsh [id number] i ty of [place] 4.2.7.2.686 [facility] [id number] [place] [id number] Branch 2020-09-30 2020-09-30 Emergency [facility] [id number] 07:22:00 08:18:00 Chuy Walsh [id number] [place] 4.2.7.2.686 [place] [id number] 2020-09-30 2020-09-30 Emergency X SINGER [facility] ERT [id number] Univers 07:22:00 07:22:00 CHUY tubbs [facility] 2020-04-05 2020-04-05 Outpatient Humaira-Mbayo VFP VFP [id number] [facility] 05:44:00 05:44:00 _A_AH [id number] Family Practic e 2020-04-05 2020-04-05 Outpatient Humaira-Mbayo VFP VFP [id number] [place] 05:44:00 05:44:00 _A_AH [id number] Family Practic e 2020-04-05 2020-04-05 Outpatient Humaira-Mbayo VFP VFP [id number] [facility] 05:44:00 05:44:00 _A_AH [id number] Family Practic e 2020-04-05 2020-04-05 Outpatient Humaira-Mbayo VFP VFP [id number] [place] 05:44:00 05:44:00 _A_AH [id number] Family Practic e 2020-03-04 2020-03-14 Inpatient 3 Chente [facility] PSY [id number] 15:38:00 15:25:00 [facility] 2019-12-13 2019-12-13 Outpatient Humaira-Mbayo VFP VFP [id number] [facility] 07:22:00 07:22:00 _A_AH 48543 Family Practic e 2019-01-22 2019-01-28 Inpatient [facility] [id number] Memoria 04:33:00 04:40:00 martin Somers 00 l [facility] 2018-02-21 2018-02-20 Inpatient E [facility] MED [id number] 14:48:00 13:18:00 [facility] [...] 0.1-0.8 N UA RFLX MICR CULT IF [id number] 03:42:00 Test Item Value Reference Range Interpretation [...] /HPF NONE A code = AMORU) TROPONIN-I [id number] 01:52:00 Test Item Value Reference Range Interpretation Comments TROPONIN-I RAPID 0.00 ng/mL 0.00-0.08 N Performed b y certified (test code = decator operator at [facility] Negative: <= 0.0 8 Positive: [...] changes in trop onin levels characteristic of [place]. BASIC METABOLIC [id number] 01:47:00 Test Item Value Reference Range Interpretation [...] code = POCGLU) 110 MG/DL UA DIPSTICK [id number] 01:32:00 Test Item Value Reference Range Interpretation Comments UA GLUCOSE DIPSTIC POC NEGATIVE NEGATIVE (test code = GLUUP) UA BILIRUBIN DIPSTICK NEGATIVE NEGATIVE (test code = BILU) UA KETONE DIPSTICK POC 1+ NEGATIVE A (test code = KETUP) UA SPECIFIC GRAVITY (test 1.030 1.005-1.030 N code = SGU) UA BLOOD DIPSTIC POC NEGATIVE NEGATIVE Perform ed by (test code = BLUP) certified decator operator at [facility] UA PH DIPSTIC POC (test 5 5.0-7.0 N code = PHUP) UA PROTEIN DIPSTICK POC NEGATIVE NEGATIVE (test code = DPROUP) UA UROBILINIOGEN QUAL NORMAL 0.2-1.0 (test code = UROQL) UA NITRITE DIPSTICK POC NEGATIVE Negative (test code = NITUP) UA LEUKOCYTE ESTERASE W 2+ NEGATIVE A REFLEX (test code = LEUUR) TROPONIN [id number] 05:26:53 Test Item Value Reference Interpretation Comments Range TROPONIN I (test 0.003 ng/mL See_Comment [Automated code = 2868842855) message] The system which generated this result [...] biotin. Lab Interpretation Normal (test code = 91712-5) [facility] [id number] 05:24:16 Test Item Value Reference Range Interpretation Comments NT-proBNP (test code 35 pg/mL See_Comment [Autom ated = 4174416396) message] The system which generated this result transmitted reference range : <=125. The reference range was not used to interpret this result as normal/abnormal . PERRY (test code = PERRY) Biotin has been reported to cause a negative bias, interpret results relative to patient's use of biotin. Lab Interpretation Normal (test code = 60262-5) [facility] 05:16:51 Test Item Value Reference Range Interpretation Comments MAGNESIUM (test code = 7646713949) 1.8 mg/dL 1.7-2.4 Lab Interpretation (test code = Normal 57706-9) [facility]. METABOLIC PANEL (78400)2021-09-10 05:16:31 Test Item Value Reference Range Interpretation Comments NA (test code = 139 mmol/L 135-145 7877959433) K (test code = 4.0 mmol/L 3.5-5.0 1878986799) CL (test code = 108 mmol/L 98-108 9841600475) CO2 TOTAL (test code 25 mmol/L 23-31 = 2899285225) AGAP (test code = 2-16 7015405959) BUN (test code = 14 mg/dL 7-23 7887380490) GLUCOSE (test code = 88 mg/dL 70-110 3751691798) CREATININE (test code 0.89 mg/dL 0.50-1.04 = 4513803505) TOTAL BILI (test code 0.5 mg/dL 0.1-1.1 = 4388212474) CALCIUM (test code = 10.3 mg/dL 8.6-10.6 6905602028) T PROTEIN (test code 6.9 g/dL 6.3-8.2 = 4967567773) ALBUMIN (test code = 4.3 g/dL 3.5-5.0 6302641371) ALK PHOS (test code = 72 U/L 34-122 3230109354) ALTv (test code = 17 U/L 5-35 1742-6) AST(SGOT) (test code 29 U/L 13-40 = 7407303228) eGFR (test code = mL/min/1.73m2 2042271392) PERRY (test code = PERRY) Association of [...] urine or abnormalities in imaging tests). [facility] [id number] 05:16:16 Test Item Value Reference Range Interpretation Comments CK (test code = 5052788145) 267 U/L 33-194 H Lab Interpretation (test code = Abnormal 33152-7) [facility] THRMPLAS [id number] 05:05:32 Test Item Value Reference Range Interpretation Comments APTT Patient (test See_Comment [Automat ed code = 3173-2) message] The system which generated this result transmitted reference range : 23 - 38 Seconds . The reference range was not used to interpr et this result as normal/abnormal . PERRY (test code = PERRY) The [facility] patient population mean normal value for aPTT is 30 seconds. Lab Interpretation Normal (test code = 28122-8) [facility] / [id number] 05:03:30 Test Item Value Reference Range Interpretation [...] tions. Lab Interpretation (test Normal code = 81988-9) [facility] WITH [id number] 04:57:13 Test Item Value Reference Range Interpretation Comments WBC (test code = See_Comment [Automated 5190-2) message] The sy stem which generated this [...] RDW-SD (test code = 41.2 fL 39.0-49.9 82541-2) RDW-CV (test code = 13.0 % 12.0-15.5 788-0) PLT (test code = See_Comment H [Automated 777-3) message] The sy stem which generated this result transmitted reference range : 166 - 358 10*3/ ?L. The reference r katie was not used to interpret this result as normal/abnormal . MPV (test code = 9.6 fL 9.5-12.9 42310-5) NRBC/100 WBC (test See_Comment [Automat ed code = 3311382571) message] The system which generated this result transmitted reference range : 0.0 - 10.0 /100 WBCs. The refer ence range was not u sed to interpret th is result as normal/abnormal . NRBC x10^3 (test code <0.01 See_Comment [Auto mated = 4761768448) message] The s [employer] which generated this result transmitted reference range : 10*3/?L. The reference range was not used to interpret this result as normal/abnormal . GRAN MAT (NEUT) % 61.9 % (test code = 770-8) IMM GRAN % (test code 0.30 % = 7389518009) LYMPH % (test code = 26.0 % 736-9) MONO % (test code = 9.5 % 5905-5) EOS % (test code = 1.6 % 713-8) BASO % (test code = 0.7 % 706-2) GRAN MAT x10^3(ANC) 5.91 10*3/uL 1.88-7.09 (test code = 8230436692) IMM GRAN x10^3 (test 0.03 10*3/uL 0.00-0.06 code = 8825025543) LYMPH x10^3 (test code 2.48 10*3/uL 1.32-3.29 = 731-0) MONO x10^3 (test code 0.91 10*3/uL 0.33-0.92 = 742-7) EOS x10^3 (test code = 0.15 10*3/uL 0.03-0.39 711-2) BASO x10^3 (test code 0.07 10*3/uL 0.01-0.07 = 704-7) Lab Interpretation Abnormal (test code = 49250-9) [facility] J3440-10-28 22:24:55 Test Item Value Reference Interpretation Comments Range TROPONIN I (test 0.002 ng/mL See_Comment [Automated code = 5361370946) message] The system which generated this result [...] biotin. Lab Interpretation Normal (test code = 22094-5) [facility] 22:24[facility] Test Item Value Reference Range Interpretation Comments [place] (test code = <0.2 0.6-1.2 L 9363930116) PERRY (test code = PERRY) Toxic Range: ? Greater than 1.2 mmol/L Lab Interpretation (test Abnormal code = 68803-2) [facility]OL[facility] (79125)2021-09-09 22:13:54 Test Item Value Reference Range Interpretation Comments NA (test code = 139 mmol/L 135-145 3261539049) K (test code = 4.0 mmol/L 3.5-5.0 1084563064) CL (test code = 105 mmol/L 98-108 2628100292) CO2 TOTAL (test code 26 mmol/L 23-31 = 5463354582) AGAP (test code = 2-16 2370327768) BUN (test code = 11 mg/dL 7-23 1393151436) GLUCOSE (test code = 109 mg/dL 70-110 8826881942) CREATININE (test code 0.71 mg/dL 0.50-1.04 = 8047477509) TOTAL BILI (test code 0.6 mg/dL 0.1-1.1 = 1485228029) CALCIUM (test code = 10.4 mg/dL 8.6-10.6 7674710151) T PROTEIN (test code 7.6 g/dL 6.3-8.2 = 2857603956) ALBUMIN (test code = 4.7 g/dL 3.5-5.0 6120245431) ALK PHOS (test code = 78 U/L 34-122 4436862527) ALTv (test code = 19 U/L 5-35 1742-6) AST(SGOT) (test code 28 U/L 13-40 = 9163748602) eGFR (test code = mL/min/1.73m2 6682591174) PERRY (test code = PERRY) Association of [...] in imaging tests). [facility] WITH HSZL2756-39-18 22:03:32 Test Item Value Reference Range Interpretation Comments WBC (test code = See_Comment [Automated 0441-2) message] The sy stem which generated this result transmitted reference range : 4.30 - 11.10 10*3/?L. The reference range was not used to interpret this result as normal/abnormal . RBC (test code = See_Comment [Automated 107-8) message] The sy stem which generated this [...] RDW-SD (test code = 40.2 fL 39.0-49.9 62444-6) RDW-CV (test code = 12.9 % 12.0-15.5 788-0) PLT (test code = See_Comment H [Automated 777-3) message] The sy stem which generated this result transmitted reference range : 166 - 358 10*3/ ?L. The reference r katie was not used to interpret this result as normal/abnormal . MPV (test code = 9.4 fL 9.5-12.9 L 17147-5) NRBC/100 WBC (test See_Comment [Automat ed code = 9185316269) message] The system which generated this result transmitted reference range : 0.0 - 10.0 /100 WBCs. The refer ence range was not u sed to interpret th is result as normal/abnormal . NRBC x10^3 (test code <0.01 See_Comment [Auto mated = 0936703319) message] The s ystem which generated this result transmitted reference range : 10*3/?L. The reference range was not used to interpret this result as normal/abnormal . GRAN MAT (NEUT) % 67.1 % (test code = 770-8) IMM GRAN % (test code 1.00 % = 3792637205) LYMPH % (test code = 21.4 % 736-9) MONO % (test code = 7.9 % 5905-5) EOS % (test code = 1.8 % 713-8) BASO % (test code = 0.8 % 706-2) GRAN MAT x10^3(ANC) 7.35 10*3/uL 1.88-7.09 H (test code = 3496270928) IMM GRAN x10^3 (test 0.11 10*3/uL 0.00-0.06 H code = 5447776823) LYMPH x10^3 (test code 2.34 10*3/uL 1.32-3.29 = 731-0) MONO x10^3 (test code 0.86 10*3/uL 0.33-0.92 = 742-7) EOS x10^3 (test code = 0.20 10*3/uL 0.03-0.39 711-2) BASO x10^3 (test code 0.09 10*3/uL 0.01-0.07 H = 704-7) Lab Interpretation Abnormal (test code = 44461-5) [facility] ONLY - INFLUENZA A & B DIRECT ZSPSWEG0941-10-41 14:04:00 Test Item Value Reference Range Interpretation Comments Influenza A (test code = 80805-2) Negative Negative Influenza B (test code = 31829-9) Negative Negative Lab Interpretation (test code = Normal 29625-2) [facility] CenterCOVID[facility] (ID NOW RAPID TESTING)2020-09-30 14:03:00 Test Item Value Reference Range Interpretation Comments SARS-CoV-2 Rapid ID NOW Not Detected Not Detected (test code = 63333-6) PERRY (test code = PERRY) ID NOW COVID-19 Assay is an isothermal nucleic acid amplification test intended for the qualitative detection of nucleic acid from SARS-CoV-2 viral RNA in nasopharyngeal (FACILITIES FLIGHT CHECK PILOT) specimens. It is used under Emergency Use [...] indicated. Lab Interpretation Normal (test code = 49637-6) [facility]URIN[facility]IS2020-12-07 13:55:00 Test Item Value Reference Range Interpretation Comments APPEARANCE (test code = Hazy Clear A 7305312926) COLOR (test code = Yellow Yellow 9093577894) PH (test code = 4.8-8.0 6633323450) SP GRAVITY (test code = 1.003-1.030 5757987331) GLU U QUAL (test code = Normal Normal 4635689289) BLOOD (test code = Negative Negative 4909125923) KETONES (test code = 5 mg/dL Negative A 3945625994) PROTEIN (test code = Negative Negative 2887-8) UROBILIN (test code = 2.0 mg/dL Normal A 9213705991) BILIRUBIN (test code = Negative Negative 3023535521) NITRITE (test code = Negative Negative 8436723053) LEUK ROZINA (test code = 25/uL Negative A 5649888683) RBC/HPF (test code = See_Comment [Autom ated message] 1717567010) The system ANTs Software generated this result transmit ngozi reference range : 0 - 3 HPF. The refe rence range was not u sed to interpret th is result as normal/abnormal . WBC/HPF (test code = See_Comment [Autom ated message] 1924067240) The system ANTs Software generated this result transmit ngozi reference range : 0 - 5 HPF. The refe rence range was not u sed to interpret th is result as normal/abnormal . BACTERIA (test code = Few Negative A 0168013060) MUCOUS (test code = Slight Negative LPF A 9215613262) SQ EPITH (test code = HPF 6622399253) Lab Interpretation (test Abnormal code = 20600-9) [facility] CenterRPR Ebmwccxjcvr1604-23-86 16:42:24 Test Item Value Reference Range Interpretation [...] = 10-24-2020 N Expiration Dt) Thyroid Stimulating Dmxqgbj5663-13-69 08:35:16 Test Item Value Reference Range Interpretation Comments TSH (test code = TSH) 1.170 mIU/mL 0.270-4.200 Lipid Wkrly9522-13-61 08:21:19 Test Item Value Reference Range Interpretation Comments Cholesterol Total 254 mg/dL 0-200 H RISK OF HE ART (test code = DISEASEPublishe d by Cholesterol Total) [place] [employer] Cathie lyte Optimal Borderl ine [...] calculation is LDL/HDL Ratio=L DL Calc/HDL Chol KTIAYEGPIJPL7509-28-38 08:24:008.6[facility] MbqryloPDTIRFRWVEUC6400-40-85 08:24:39313Simnqhvd NlvwhbsVLLGJBWNTHKQ6077-12-14 08:24:0027[facility] [place] QYITHFHYRUJV5564-25-88 08:24:56954Gciicgiv VtdigusXXHMLPCWKXBS0026-81-01 08:24:003.6[facility] CccmepsDTPKPAGCPHBJ3114-29-64 08:24:000.70[facility] EFINOMJXOCDG6982-53-03 08:24:008.4[facility] VnztsimBGZASXCVHJCD6286-05-25 08:24:97663Aurdvsgx IpkxajlXZSGRVIFYLUM3293-98-96 08:24:0086[facility] LQOQFGPCRQRF1268-75-09 08:24:006[facility] NgpxckdLACQGGYOPH0917-54-22 08:24:00 11.6[facility] XxscznzWRCCXARMPW2051-35-42 08:24:003.78[facility]annHEMATOLOGY 2019-01-26 08:24:0013.3[facility] IluqjmoIRGLMYAIEV8607-70-77 08:24:0034.0[facility] EswtbfxZDBMLPPEHN3503-60-34 08:24:006.3[facility] FhycxovLDLQJUDFSN8017-72-52 08:24:00 Test Item Value Reference Range Interpretation Comments MCH (test code = MCH) 30.7 pg 27.0-31.0 [facility] ErwnwygKVTFQRDDZY9351-10-11 08:24:0090.3[facility] HermannHEMATOLOGY 2019-01-26 08:24:0034.2[facility] WrccrfsSDEUNTDLWL1756-80-54 08:24:43786Uvkslnlv FeobeqnDHPINFBRAH4949-53-79 08:24:007.5[facility] InlaelkTKQTJLNMAIFC4178-26-12 08:24:008.6[facility] FnmeazeKSVQDRFVAWXC7653-43-69 08:24:25413Kuxvopdx Yonis BQBOATJJHWYC5224-14-84 08:24:0027[facility] VwypulhOIPNGMCGVVVO1141-67-64 08:24:00 139[facility] PwbwodqBEQYGAOGMION9467-17-82 08:24:003.6[facility] [place] YRLWALQKQRYH7040-48-61 08:24:000.70[facility] BhwicacIXLISCKKCOVJ4280-39-09 08:24:008.4[facility] HmszjjvEVWTNSRZTCFF2691-38-48 08:24:05475Zlrwsewf [place] MEOEFPWFLKUK5122-66-30 08:24:0086[facility] NnlcyghVUJTHSXZEKTP7557-12-95 08:24:00 6[facility] RtumiasZNXKXNOCXK8242-62-40 08:24:0011.6[facility] HermannHEMATOLOGY 2019-01-26 08:24:003.78[facility] MuvcfflGOPGXWHCAD8091-11-58 08:24:0013.3[facility] MeajaloZHCGVKVIWY2403-47-10 08:24:0034.0[facility] GkaygmlGWFRDBXRCF7135-57-66 08:24:006.3[facility] ShfuddzPOYNZRNZJY8935-68-66 08:24:00 Test Item Value Reference Range Interpretation Comments MCH (test code = MCH) 30.7 pg 27.0-31.0 [facility] OaryldgDDVURBVQDC1987-37-73 08:24:0090.3[facility] HermannHEMATOLOGY 2019-01-26 08:24:0034.2[facility] WfovgsdSUQUHOGBLC9204-25-04 08:24:65162Xrfohqkm GujgeuyIEWPCAQCBJ2232-36-18 08:24:007.5[facility] HermannCHEM EVIUN1836-99-41 09:14:59057Ffktfknr HermannCHEM THFZP5941-08-02 09:14:008.5[facility] HermannCHEM ZKPYS2974-86-62 09:14:0013.3[facility] HermannCHEM BPXUN6959-53-24 09:14:0024 [facility]annCHEM LAKVS2840-07-62 09:14:43669Plxaqwcs HermannCHEM PANEL 2019-01-25 09:14:0081[facility] HermannCHEM TWWEU2243-60-17 09:14:002[facility]annCHEM MPUST3642-09-47 09:14:003.3[facility]annCHEM FUMLH9600-39-29 09:14:000.60[facility]annCHEM GVRBU5889-63-39 09:14:39779Vbxarbah HermannCHEM EHUDC1283-87-27 09:14:40966Iukdozhg HermannCHEM OSDAW5212-22-58 09:14:008.5 [facility]annCHEM VJEFO7312-20-96 09:14:0013.3[facility] HermannCHEM PANEL 2019-01-25 09:14:0024[facility] HermannCHEM EKSYJ3988-85-89 09:14:52591Onnzhdwf HermannCHEM DCYFC5367-44-87 09:14:0081[facility] HermannCHEM PNVFC5109-19-93 09:14:002[facility] HermannCHEM UESGE4955-04-92 09:14:003.3[facility]annCHEM PJFBO5790-20-68 09:14:000.60[facility]annCHEM NVZPD9784-15-73 09:14:74489 [facility]annMOLECULAR PJONPILCBS6800-30-88 16:22:00Negative (01/23/19 11:22 AM)[facility] HermannMOLECULAR HEKXOFCAZY8629-66-44 16:22:00Negative (01/23/19 11:22 AM)[facility]annCHEM POBFW9847-85-22 15:42:002.76[facility] HermannCHEM PANEL 2019-01-23 15:42:002.76[facility] HermannCHEM JDNNC5981-87-31 12:32:000.9[facility]annCHEM YNVBM6813-97-23 12:32:000.9[facility]annCHEM GIGUX9526-01-84 10:50:002.0[facility]annCHEM CGHUX3418-39-97 10:50:96995Txnpbevd HermannCHEM IMZKO0186-98-12 10:50:0023[facility]annCHEM QXMYP0889-44-80 10:50:60090 [facility]annCHEM GKITH3482-45-71 10:50:003.1[facility] HermannCHEM PANEL 2019-01-23 10:50:04636Aixdyaow HermannCHEM QDHZB1294-20-85 10:50:005[facility]annCHEM CVBIC0236-69-67 10:50:000.50[facility]annCHEM EZDRQ2677-60-58 10:50:007.8[facility]annCHEM TBNRE9724-47-85 10:50:0083[facility]annCHEM QFLJN2680-22-65 10:50:0010.1[facility] DmouhjvJKYXHTFYXQ9146-31-52 10:50:000.2 [facility] DnmgkazMQIERPQRZY7511-70-87 10:50:000.8[facility] HermannHEMATOLOGY 2019-01-23 10:50:005.5[facility] KlfxyiaTTGMNZBVMR3037-37-95 10:50:002.2[facility] TqjndbnJWUDNKXMCU9600-19-95 10:50:000.1[facility] EhprbbqDITHVEHRZO3930-66-30 10:50:0063.6[facility] GzytlcxYRJZZDPHRO8817-46-31 10:50:008.9[facility] VSFALDHWVK2035-82-38 10:50:002.3[facility] VewhthtCTTAPKALCA7164-84-01 10:50:00 Normal (01/23/19 5:50 AM)[facility] BernlwjADKHHBPSCJ9818-92-08 10:50:00Normal (01/23/19 5:50 AM)[facility] WuomzfyUKTBIURDME6787-35-89 10:50:0025.1[facility] ZqzqyplLFCTTRHGRB0803-30-15 10:50:0013.1[facility] OnbqcrzMJEEWLPFQJ4277-92-38 10:50:55541Fwlvztpr DjffesxKPVPFFOGZZ2359-02-77 10:50:007.7[facility] [place] BRLURCBKCR8215-07-66 10:50:008.6[facility] WduokfwIDXCJIUEEX6567-70-72 10:50:00 10.0[facility] XbpoxukBIOLHZSAEQ3743-15-47 10:50:0034.6[facility] HermannHEMATOLOGY 2019-01-23 10:50:0028.7[facility] HywzxxgNPCSZBWJAT7733-25-94 10:50:0087.8[facility] RufxgzwSSSTMJSKSP6478-45-67 10:50:00 Test Item Value Reference Range Interpretation Comments MCH (test code = MCH) 30.4 pg 27.0-31.0 [facility] VndaaknMWWKFNJUDK5522-52-49 10:50:003.27[facility] HermannCHEM PANEL 2019-01-23 10:50:002.0[facility] HermannCHEM ECNIQ4686-19-44 10:50:96463Vngydgpg HermannCHEM NPTRZ8515-07-41 10:50:0023[facility]annCHEM LGKBH7595-16-21 10:50:24819Jfimqxyk [facility]annCHEM UIOPZ4006-00-11 10:50:003.1[facility] HermannCHEM DCFZY5392-89-63 10:50:37981Asjcrzlu HermannCHEM YTQPW7263-94-67 10:50:005 [facility]annCHEM FMWAU6414-20-71 10:50:000.50[facility]annCHEM PANEL 2019-01-23 10:50:007.8[facility] HermannCHEM OJIGB7993-94-28 10:50:0083[facility]annCHEM VCAMH8723-71-88 10:50:0010.1[facility] EprlxtxIYIBZNOWPX2407-23-69 10:50:000.2[facility] GmoetaaPKGUVFYPZW8046-92-63 10:50:000.8[facility] CKVXSQHHMZ1538-50-85 10:50:005.5[facility] TrpjhosEGJUWBOIJX2210-19-65 10:50:002.2 [facility] DtrbjtcQZMLSWHOXO5833-82-95 10:50:000.1[facility] HermannHEMATOLOGY 2019-01-23 10:50:0063.6[facility] GqzqqfyLQNNXOPNYY9747-19-04 10:50:008.9[facility] EjtmybdNNKKFBCKNO4740-88-93 10:50:94500Xelodswj DyvbmtpOMEOLJXJSW2416-04-93 10:50:002.3[facility] YlinpuyFEVWQVQHEU1082-57-12 10:50:00Normal (01/23/19 5:50 AM) [facility] WaudpklHXPQUHDTME0708-73-89 10:50:00Normal (01/23/19 5:50 AM)[facility] MfumezaUTINBWBBNN2815-31-12 10:50:0025.1[facility] OasyhykWEYVIPIMPG2016-60-69 10:50:0013.1[facility] MpfpwssNMBOOGRIEE9589-02-19 10:50:007.7[facility] [place] HQVGWDOCQP8367-38-79 10:50:008.6[facility] DjigkhtZHUEONNKCF3216-05-91 10:50:00 10.0[facility] ZpcwrgzYYWMIPWMBD5102-74-21 10:50:0034.6[facility] HermannHEMATOLOGY 2019-01-23 10:50:0028.7[facility] LmijxgfZQQEVTPLFO3340-77-78 10:50:0087.8[facility] KhefujgXREUQFMWCV2198-77-71 10:50:00 Test Item Value Reference Range Interpretation Comments MCH (test code = MCH) 30.4 pg 27.0-31.0 [facility] TfblqrrVHTFEBODHW0345-78-05 10:50:003.27[facility] HermannCHEM PANEL 2019-01-22 11:32:002.4[facility] HermannCHEM RDNKZ9789-18-80 11:32:002.4[facility] HermannCHEM NNIIV0600-74-48 09:04:003.0[facility] HermannCHEM PZZSJ0126-95-46 09:04:003.0[facility]annURINE AND DBCLA0665-44-74 07:14:00 Test Item Value Reference Range Interpretation Comments UA Spec Grav (test code = UA Spec 1.014 1 Grav) [facility] YHJEQ4035-07-85 07:14:00 Test Item Value Reference Range Interpretation Comments UA pH (test code = UA pH) 6.0 1 5.0-8.0 [facility] MPOZU4617-12-82 07:14:00Negative (01/22/19 2:14 AM) [facility] HYPYU6878-61-73 07:14:00Negative *NA*(01/22/19 2:14 AM) [facility] CRCJZ2387-62-25 07:14:00Negative *NA*(01/22/19 2:14 AM) [facility] QWHFH2715-38-75 07:14:00Negative *NA*(01/22/19 2:14 AM) [facility] PPYAQ6216-98-51 07:14:00Negative (01/22/19 2:14 AM) [facility] QMNIF7818-77-02 07:14:00Negative (01/22/19 2:14 AM) [facility] PTJVY8650-15-91 07:14:00Negative (01/22/19 2:14 AM) [facility] QTYXI1104-01-60 07:14:00<1[facility] AND JVVCH8403-65-69 07:14:0025[facility]annUR[facility] AND GDUOV6094-20-14 07:14:002 [facility] BIASI2643-66-69 07:14:00Light Yellow *NA*(01/22/19 2:14 AM)[facility] UJNWH1374-27-76 07:14:00Clear (01/22/19 2:14 AM) [facility] WGWSB1866-15-97 07:14:00 Test Item Value Reference Range Interpretation Comments UA Spec Grav (test code = UA Spec 1.014 1 Grav) [facility] IQZIT7494-75-43 07:14:00 Test Item Value Reference Range Interpretation Comments UA pH (test code = UA pH) 6.0 1 5.0-8.0 [facility] VPLMP6634-88-53 07:14:00Negative (01/22/19 2:14 AM) [facility] WZJHI4035-47-81 07:14:00Negative *NA*(01/22/19 2:14 AM) [facility] FMLWS8524-25-31 07:14:00Negative *NA*(01/22/19 2:14 AM) [facility] QBMYG5199-08-31 07:14:00Negative *NA*(01/22/19 2:14 AM) [facility] STMNX4554-02-27 07:14:00Negative (01/22/19 2:14 AM) [facility] VIEDM0389-35-71 07:14:00Negative (01/22/19 2:14 AM) [facility] KUAPW0168-47-64 07:14:00Negative (01/22/19 2:14 AM) [facility] XZGJB3054-48-34 07:14:00<1[facility] TSXID4006-47-98 07:14:0025[facility] NGQVI0850-71-49 07:14:002 [facility] MNVTX5173-92-09 07:14:00Light Yellow *NA*(01/22/19 2:14 AM)[facility] PFCSC5273-39-74 07:14:00Clear (01/22/19 2:14 AM) [facility] PvxldfpKGTZE9064-97-50 05:16:000.90[facility] HcfnjxuXPJEE2942-95-10 05:16:000.90[facility] JnwkteaBJGKMWKXRX3294-95-52 05:01:000.1[facility] LERTCNFJPS2390-84-88 05:01:000.7[facility] HtdoikiFDFVGFHSUM1596-49-50 05:01:000.0 [facility] OavsvmdPBWLLAVZLE2085-00-83 05:01:000.0[facility] HermannHEMATOLOGY 2019-01-22 05:01:000.9[facility] HmrnbptKLNJGHHSAN6998-53-74 05:01:008.6[facility] KigrafoCFXNRTUMUS2786-33-06 05:01:000.6[facility] XsivlklJMBJMDAOAK4451-01-69 05:01:0086.5[facility] KepambrXCYPFTDYFH5385-05-14 05:01:005.7[facility] PMSLXOYGTZ9280-61-85 05:01:006.9[facility] VctwslsMRBQMIHGLP5674-37-49 05:01:009.9 [facility] DkokxexGBGYQITQJV4940-51-56 05:01:0032.8[facility]annHEMATOLOGY 2019-01-22 05:01:0013.6[facility] MtskbxpWATVEBGWMK2009-26-30 05:01:23431Xvzkpvlm KlqrkctSAPAZCBFHX7994-70-84 05:01:007.3[facility] ZakepvmCTOOQUXEBC1561-52-77 05:01:0014.0[facility] ZxatejxPCFDUBLTLZ5685-54-58 05:01:004.85[facility] [place] TQYGZEHQSQ9233-78-12 05:01:0042.7[facility] WjvnfptKCAAVQWAGG2643-46-72 05:01:00 Test Item Value Reference Range Interpretation Comments MCH (test code = MCH) 29.0 pg 27.0-31.0 [facility] CbecxehRSBNTEVPSN5002-87-69 05:01:0088.2[facility] HermannHEMATOLOGY 2019-01-22 05:01:00 Test Item Value Reference Range Interpretation Comments INR (test code = INR) 0.96 1 0.85-1.17 [facility] OozayuwKKLWTBRGCF7330-62-84 05:01:00 Test Item Value Reference Range Interpretation Comments PT (test code = PT) 12.6 s 12.0-14.7 [facility] TjonwsrUREATLLDSR8557-07-34 05:01:00 Test Item Value Reference Range Interpretation Comments PTT (test code = PTT) 25.9 s 22.9-35.8 [facility]annBLOOD BANK GBYJQDE7238-41-76 05:01:00Negative (01/22/19 12:01 AM) [facility]annCARDIAC YBFOQVM1042-25-92 05:01:00<0.02[facility] [place] CARDIAC GVSCWFA7838-75-25 05:01:0049[facility] HermannCHEM KHBZK7850-93-37 05:01:000.6[facility] HermannCHEM GJZQO8728-74-99 05:01:30993Vyozoqvr HermannCHEM YSCNA0883-33-30 05:01:004.0[facility] HermannCHEM VOEQA0147-68-12 05:01:0017 [facility]annCHEM VVZVE6069-63-87 05:01:0025[facility] HermannCHEM PANEL 2019-01-22 05:01:008.1[facility] HermannCHEM DQREC4743-38-24 05:01:00 Test Item Value Reference Range Interpretation Comments B/C Ratio (test code = B/C Ratio) 20 1 6-25 [facility]annCHEM UJJBI0232-33-02 05:01:00 Test Item Value Reference Range Interpretation Comments A/G Ratio (test code = A/G Ratio) 1.0 1 0.7-1.6 [facility]annCHEM LJSKU5219-82-25 05:01:004.1[facility] HermannCHEM PANEL 2019-01-22 05:01:006.90[facility] DfxzsnpFMBSAIUQDKUJD0639-98-93 05:01:00Negative *NA*(01/22/19 12:01 AM)[facility] QifdytsVWEEPSGSOM2619-88-03 05:01:000.1[facility] IqlkzhpSTRYMOBSMJ0122-94-77 05:01:000.7[facility] PdthpguQPHMIZEDZO2821-11-68 05:01:000.0[facility] VyneeffBUCVYSIMYG0943-45-13 05:01:000.0[facility] [place] JPKOUNIDFU0719-17-79 05:01:000.9[facility] GtrzhlxVBZOTFGRDH0155-80-50 05:01:008.6 [facility] MjmgwzdYBNDFMRZIA8280-30-33 05:01:000.6[facility] HermannHEMATOLOGY 2019-01-22 05:01:0086.5[facility] PyodmelQAQCJZPZMX6068-37-32 05:01:005.7[facility] JjkzzdwSTYACIZRMU9393-85-35 05:01:006.9[facility] WuielnnGOFFQAWWQQ7531-88-43 05:01:009.9[facility] DuxfwjwAZUNGEHTOL4305-95-31 05:01:0032.8[facility] RPLWXKTQIC0075-56-75 05:01:0013.6[facility] DizzdunNEYTZKATBB7817-40-05 05:01:00 443[facility] LszirzkEEWEIDPQGW0580-95-74 05:01:007.3[facility]annHEMATOLOGY 2019-01-22 05:01:0014.0[facility] SlpexdhEECJDKDFYR1870-10-89 05:01:004.85[facility] PmcmcgdJRZVOMUALA7824-84-36 05:01:0042.7[facility] UzmzegyDFYEMIXFUM9064-70-29 05:01:00 Test Item Value Reference Range Interpretation Comments MCH (test code = MCH) 29.0 pg 27.0-31.0 [facility] LmvdyxnREGFRMMJSR0638-14-49 05:01:0088.2[facility] HermannHEMATOLOGY 2019-01-22 05:01:00 Test Item Value Reference Range Interpretation Comments INR (test code = INR) 0.96 1 0.85-1.17 [facility] [id number] 05:01:00 Test Item Value Reference Range Interpretation Comments PT (test code = PT) 12.6 s 12.0-14.7 [facility] OtdvculXMXPTLJRGK1512-43-40 05:01:00 Test Item Value Reference Range Interpretation Comments PTT (test code = PTT) 25.9 s 22.9-35.8 [facility] [id number] 05:01:00Negative (01/22/19 12:01 AM) [facility]ARD[facility] [id number] 05:01:00<0.02[facility] CARDIAC [id number] 05:01:0049[facility]annCHEM [id number] 05:01:000.6[facility]annCHEM [id number] 05:01:68853Vapcgjok HermannCHEM NUCUT6912-71-21 05:01:004.0[facility]annCHEM [id number] 05:01:0017 [facility]CHE[facility] [id number] 05:01:0025[facility]annCHEM PANEL 2019-01-22 05:01:008.1[facility]annCHEM [id number] 05:01:00 Test Item Value Reference Range Interpretation Comments B/C Ratio (test code = B/C Ratio) 20 1 6-25 [facility] HermannCHEM [id number] 05:01:00 Test Item Value Reference Range Interpretation Comments A/G Ratio (test code = A/G Ratio) 1.0 1 0.7-1.6 [facility] [id number] 05:01:004.1[facility]annCHEM PANEL 2019-01-22 05:01:006.90[facility] Ce[id number] 05:01:00Negative *NA*(01/22/19 12:01 AM)[id number] 14:36:00 Test Item Value Reference Range Interpretation [...] 0.00-0.01 N code = ETOHU) Comprehensive Metabolic [id number] 14:36:00 Test Item Value Reference Range Interpretation [...] by fredy e MDRD study and nyasia ele be interpretedwith caution.eGFR Re sult Interpretation: eGFR > or = 60 is in t he Normal RangeeGF R < 60 may mean kidney diseaseeGFR < 1 5 may mean kidney failureRange s recommended by the National Kid[employer] Foundation,http ://nkd ep.nih.gov Urinalysis [id number] 14:32:00 Test Item Value Reference Range Interpretation Comments Color (test code = COLOR) Yellow Yellow,Straw,Pl N yellow Clarity (test code = Clear Clear N CLAR) Specific Jayess (test 1.024 1.001-1.035 N code = SPGR) [...] code = Few /HPF BACT) CBC with [id number] 14:21:00 Test Item Value Reference Range Interpretation [...] code = ALYMPH) 3.0 K/cumm 0.5-4.6 N Hernando Abs (test code = AMONO) 0.5 K/cumm 0.0-1.2 N Eos Abs (test code = AEOS) 0.19 K/cumm 0.00-0.74 N Baso Abs (test code = ABASO) 0.1 K/cumm 0.00-0.21 N
--- NOTE | 2021-11-01 16:18 | ER ---
Nurse's Notes [facility] Name: Tiffany Quinn Age: 51 yrs Sex: Female : 1970 Arrival Date: 11/01/2021 Time: 15:56 Bed DIS1 Private MD: Diagnosis: Headache Presentation: 11/01 16:06 Chief complaint: Patient states: "I have the same headache. I've been here twice a day ss for two days. I took a Fioricet yesterday morning that yall gave me and it helped, and I've only taken Tylenol and it hasn't helped much.". Coronavirus screen: Client denies travel out of the [place] in the last 14 days. Ebola Screen: Patient denies exposure to infectious person. Patient denies travel to an Ebola-affected area in the 21 days before illness onset. Initial Sepsis Screen: Does the patient meet any 2 criteria? No. Patient's initial sepsis screen is negative. Does the patient have a suspected source of infection? No. Patient's initial sepsis screen is negative. Risk Assessment: Do you want to hurt yourself or someone else? Patient reports no desire to harm self or others. Onset of symptoms was October 28, 2020. 16:06 Method Of Arrival: Ambulatory ss 16:06 Acuity: MANUEL 5 ss Historical: - Allergies: 16:10 Pepcid; ss 16:10 Toradol; ss - PMHx: 16:10 ADD; Anxiety; Bipolar disorder; Migraine; ss - PSHx: 16:10 Cholecystectomy; hernia repair; ss - Immunization history:: Client reports receiving the 2nd dose of the Covid vaccine. - Social history:: Smoking status: Patient denies any tobacco usage or history of. Screenin:11 Abuse screen: Denies threats or abuse. Denies injuries from another. Nutritional ss screening: No deficits noted. Tuberculosis screening: Never had TB. Fall Risk None identified. Assessment: 16:11 General: Appears in no apparent distress. comfortable, Behavior is calm, cooperative. ss Neuro: Level of Consciousness is awake, alert, obeys commands, Oriented to person, place, time, situation, Gait is steady, Speech is normal, Facial symmetry appears normal. Respiratory: Airway is patent Respiratory effort is even, unlabored, Respiratory pattern is regular, symmetrical. EENT:. Derm: Skin is intact, is healthy with good turgor, is fragile, Skin is pink, warm \\T\\ dry. normal. Musculoskeletal: Circulation, motion, and sensation intact. Vital Signs: 16:06 BP 122 / 57; Pulse 96; Resp 18; Temp 97.7(TE); Pulse Ox 99% on R/A; Weight 72.03 kg; Height 5 ft. 2 in. (157.48 cm); Pain 9/10; 16:06 Body Mass Index 29.04 (72.03 kg, 157.48 cm) ED Course: 15:56 Patient arrived in ED. as 16:07 Venkatesh Funez NP is PHCP. pm1 16:07 James Eric MD is Attending Physician. pm1 16:10 Triage completed. ss 16:10 Arm band placed on right wrist. ss 16:11 Patient has correct armband on for positive identification. Bed in low position. 16:21 Marcy Camilo RN is Primary Nurse. kd3 16:28 No provider procedures requiring assistance completed. Patient did not have IV access kd3 during this emergency room visit. Administered Medications: 16:28 Drug: Fioricet - Esgic 325 mg-40 mg-50 mg 1 tab-caps Route: PO; kd3 16:28 Follow up: Response: No adverse reaction; Medication administered at discharge. kd3 Outcome: 16:17 Discharge ordered by . pm1 16:28 Discharged to home ambulatory. kd3 16:28 Condition: good 16:28 Discharge instructions given to patient, Instructed on discharge instructions, follow up and referral plans. Demonstrated understanding of instructions, follow-up care. 16:29 Patient left the ED. kd3 Signatures: Jewels Briggs Shelby, RN RN Venkatesh Funez NP DIRECTOR OF PATIENT FINANCIAL SERVICES pm1 Marcy Camilo RN RN kd3
--- NOTE | 2021-11-01 16:18 | EDPHYS ---
Physician Documentation [facility] Name: Tiffany Quinn Age: 51 yrs Sex: Female : 1970 Arrival Date: 11/01/2021 Time: 15:56 Bed DIS1 Private MD: ED Physician James Eric HPI: 11/01 16:17 This 51 yrs old Female presents to ER via Ambulatory with complaints of Headache. pm1 16:17 The patient complains of pain to the top of head. The patient describes the headache as pm1 aching. Onset: The symptoms/episode began/occurred today. Associated signs and symptoms: The patient has no apparent associated signs or symptoms, Pertinent negatives: fever, nausea, neck stiffness, vomiting. Severity of symptoms: in the emergency department the pain is unchanged. Headache History: The patient has had previous headaches and this one is similar to previous episodes. The symptoms are alleviated by Fioricet. Patient presented to the ER with a request for the same medication. Patient has been recently presenting to the ER with the same complaint and treatment for the past few days. The patient has experienced similar episodes in the past, multiple times. The patient has been recently seen at the [facility] Emergency Department, yesterday, for the same complaint. Historical: - Allergies: 16:10 Pepcid; ss 16:10 Toradol; ss - PMHx: 16:10 ADD; Anxiety; Bipolar disorder; Migraine; ss - PSHx: 16:10 Cholecystectomy; hernia repair; ss - Immunization history:: Client reports receiving the 2nd dose of the Covid vaccine. - Social history:: Smoking status: Patient denies any tobacco usage or history of. ROS: 16:17 Constitutional: Negative for fever, chills, and weight loss, Neck: Negative for injury, pm1 pain, and swelling, Cardiovascular: Negative for chest pain, palpitations, and edema, Respiratory: Negative for shortness of breath, cough, wheezing, and pleuritic chest pain, Abdomen/GI: Negative for abdominal pain, nausea, vomiting, diarrhea, and constipation, Skin: Negative for injury, rash, and discoloration. 16:17 Neuro: Positive for headache, Negative for numbness, tingling, weakness. 16:17 All other systems are negative. Exam: 16:17 Constitutional: This is a well developed, well nourished patient who is awake, alert, pm1 and in no acute distress. Head/Face: Normocephalic, atraumatic. 16:17 Skin: Warm, dry with normal turgor. Normal color with no rashes, no lesions, and no evidence of cellulitis. MS/ Extremity: Pulses equal, no cyanosis. Neurovascular intact. Full, normal range of motion. 16:17 Eyes: Exam is negative for acute changes, Periorbital structures: appear normal, Extraocular movements: no acute changes, Sclera: no acute changes, icterus, is not appreciated. 16:17 ENT: Exam is negative for acute changes, Mouth: no acute changes, Lips: normal, moist, Oral mucosa: normal, pink and intact, moist. 16:17 Cardiovascular: Exam negative for acute changes, Rate: normal, Rhythm: regular, Pulses: no pulse deficits are appreciated. 16:17 Respiratory: Exam negative for acute changes, respiratory distress, shortness of breath. 16:17 Neuro: Orientation: is normal, Motor: is normal, moves all fours, Gait: is steady, at a normal pace, without difficulty. 16:17 Psych: Behavior/mood is cooperative, Affect is animated, Oriented to person, place, time. Vital Signs: 16:06 BP 122 / 57; Pulse 96; Resp 18; Temp 97.7(TE); Pulse Ox 99% on R/A; Weight 72.03 kg; ss Height 5 ft. 2 in. (157.48 cm); Pain 9/10; 16:06 Body Mass Index 29.04 (72.03 kg, 157.48 cm) MDM: 16:14 Patient medically screened. pm1 16:17 Data reviewed: vital signs. Data interpreted: Pulse oximetry: on room air is 99 %. pm1 Interpretation: normal. Counseling: I had a detailed discussion with the patient and/or guardian regarding: the historical points, exam findings, and any diagnostic results supporting the discharge/admit diagnosis, the need for outpatient follow up, a family practitioner, to return to the emergency department if symptoms worsen or persist or if there are any questions or concerns that arise at home. Administered Medications: 16:28 Drug: Fioricet - Esgic 325 mg-40 mg-50 mg 1 tab-caps Route: PO; kd3 16:28 Follow up: Response: No adverse reaction; Medication administered at discharge. kd3 Disposition Summary: 11/01/21 16:17 Discharge Ordered Location: Home pm1 Problem: new pm1 Symptoms: have improved pm1 Condition: Stable pm1 Diagnosis - Headache pm1 Followup: pm1 - With: Emergency Department - When: As needed - Reason: Worsening of condition Followup: pm1 - With: Private Physician - When: 2 - 3 days - Reason: Recheck today's complaints, Continuance of care, Re-evaluation by your physician Discharge Instructions: - Discharge Summary Sheet pm1 - General Headache Without Cause pm1 - Illegal Drug Use Information, Adult pm1 Forms: - Medication Reconciliation Form pm1 - Thank You Letter pm1 - Antibiotic Education pm1 - Prescription Opioid Use pm1 Signatures: Preethi Melendez RN JIGNA ss Venkatesh Funez, [employer] MACHINE OPERATOR [employer] MACHINE OPERATOR pm1 Marcy Camilo RN RN kd3
[2021-11-01] MEDS ORDERED: ACETAMIN/CAFFEINE/BUTALB TAB PO ONE (16:25)
[2021-11-01 16:36] VITALS: BP 122/57; TEMP 97.7; O2SAT 99
== END 2021-11-01 16:29 | disposition home or self-care (01) ==
LOC: ER 15:56
DX: R51.9 Headache, unspecified (principal)
CPT/HCPCS: 99283

== ENCOUNTER 2021-11-24 09:57 | Emergency (ER) | payer OTHER ==
--- OUTSIDE RECORDS SUMMARY | 2021-11-24 10:05 | XMS REPORT | Continuity of Care Document ---
:1970 Author Organization [facility] t Address [address] [place] [address] Care Team Providers Name Role Phone UNKNOWN Primary Care Physician Unavailable Chente Attending Clinician Unavailable Chente Attending Clinician Unavailable Ronnell Attending Clinician Unavailable Sanchez SNOW Attending Clinician SANCHEZ Attending Clinician Unavailable Julia HOFFMANN, S Attending Clinician Doctor Unassigned, Name Attending Clinician Unavailable Singer ESCALANTE Attending Clinician Attending Clinician Unavailable Humaira-Mbayo_A_AH Attending Clinician Unavailable AFUWAPE Attending Clinician Unavailable Chente Admitting Clinician Unavailable Physician, Primary or Family Admitting Clinician Unavailyanna ROGERS Admitting Clinician Unavailable Humaira-Mbayo_A_AH Admitting Clinician Unavailable AFUWAPE Admitting Clinician Unavailable Payers Payer Name Policy Type Policy Number Effective Date Expiration Date S nasim [facility] [place] - [id number] 2020 [employer] 00:00:00 (MEDICARE REPLACEMENT/ADVANT AGE - HMO) Problems Condition Condition Condition Status Onset Resolution Last Treating Co mments Source Name Details Category Date Date Treatment Clinician Date LOW PB Diagnosis Active 2019-01-22 Mem oria 01-21 01:52:00 l LOW PB 00:00: Yonis 00 Active 01/21/2019 [facility] INFECTIOUS Diagnosis Active 2019-02-06 Memoria GASTROENTE 01-21 08:58:00 l RITIS AND 00:00: Yonis COLITIS INFECTIOUS 00 GASTROENTE RITIS AND COLITIS Active 01/21/2019 [facility] Irregular Irregular Disease Active Uni vers menstrual menstrual 8-15 ity of cycle cycle 00:00: [address] Skin Skin Disease Active Univers lesion lesion 8-15 ity of 00:00: [address] Psychiatri Psychiatri Disease Active U nivers c disorder c disorder 8-15 it y of 00:00: [address] Well woman Well woman Disease Active U nivers exam with exam with 8-15 ity of routine routine 00:00: [place] gynecologi gynecologi 00 Me dical nicky exam nicky exam Branch INFECTIOUS Diagnosis Active 2019-02-06 Memoria GASTROENTE 08:58:00 l RITIS AND Collyer COLITIS, INFECTIOUS GASTROENTE RITIS AND COLITIS, Active [facility] Allergies, Adverse Reactions, Alerts Allergy Allergy Status Severity Reaction(s) Onset Inactive Treating Comm ents Source Name Type Date Date Clinician prometha DA Active [place] ANXIETY [facility] zine 1- Clear 00:00: Catherine 00 [facility] prometha DA Active U [facility] zine 7-04 Clear 00:00: Catherine 00 [facility] NO KNOWN Drug Active Univers ALLERGIE Class ity of S [facility] Phenerga Phenerga Active Memori a n n l [place] Phenerga Drug Active [facility] Drug Active [facility] [place] Drug Active [facility] [place] Drug Active [facility] RisperDA Drug Active [facility] [place] Drug Active [facility] ZyPREXA [facility] [place] [facility] [place] Drug Active [facility] [place] Drug Active [facility] [place] Drug Active [facility] Risper[facility] Drug Active [facility] [place] Drug [facility] [place] [facility] [place] Drug Active [facility] [place] Drug Active [facility] [place] Drug Active [facility] RisperDA Drug Active [facility] [place] Drug [facility] ZyPRE[facility] Drug [facility] [place] [facility] [place] Drug Active [facility] [place] Drug Active [facility] [place] Drug Active [facility] R[facility] Drug Active [facility] [place] Drug [facility] [place] [facility] [place] Drug Active [facility] [place] Drug Active [facility] [place] Drug Active [facility] R[facility] Drug Active [facility] [place] Drug [facility] ZyPRE[facility] Drug [facility] Drug Active [facility] R[place] Drug Active [facility] [place] [facility] [place] Drug Active [facility] [place] Drug Active [facility] Ris[place]DA Drug Active [facility] [place] [facility] Drug Active [facility] [place] [facility] [place] Drug Active [facility] [place] Drug Active [facility] [place] Drug Active [facility] Drug Active [facility] [place] Drug [facility] Drug [facility] [place] [facility] [place] Drug Active [facility] [place] Drug Active [facility] [place] Drug Active [facility] R[facility] Drug Active [facility] [place] Drug [facility] [place] [facility] [place] Drug Active [facility] [place] Drug Active [facility] [place] Drug Active [facility] Drug Active [facility] [place] Drug [facility] Drug [facility] Drug Active [facility] R[facility] Drug Active [facility] Phenerg[facility] Drug Active [facility] [place] Drug Active [facility] [place] [facility] [place] Drug Active [facility] [place] Drug Active [facility] [place] Drug Active [facility] R[facility] Drug Active [facility] [place] Drug [facility]yPRE[facility] Drug [facility] [place] [facility] [place] Drug Active [facility] [place] Drug Active [facility] [place] Drug Active [facility] R[facility] Drug Active [facility] [place] Drug [facility] [place] [facility] [place] Drug Active [facility] [place] Drug [facility] [place] Drug Active [facility] Drug Active [facility] [place] [facility] [place] [facility] [place] Drug Active [facility] [place] Drug [facility] [place] Drug Active [facility] Drug Active [facility] [place] Drug [facility] [place] [facility] [place] Drug Active [facility] [place] Drug [facility] [place] Drug Active [facility] Drug Active [facility] [place] [facility] [place] [facility] [place] Drug Active [facility] [place] Drug [facility] [place] Drug Active [facility] Drug Active [facility] [place] Drug [facility] [place] [facility] [place] Drug Active [facility] [place] Drug [facility] [place] Drug Active [facility] R[facility] Drug Active [facility] [place] [facility] [place] [facility] [place] Drug Active [facility] [place] Drug [facility] [place] Drug Active [facility] R[facility] Drug Active [facility] [place] Drug [facility] [place] [facility] [place] Drug Active [facility] [place] Drug [facility] [place] Drug Active [facility] Drug Active [facility] [place] [facility] [place] Drug Active [facility] R[facility] Drug Active [facility] [place] [facility] Drug Active [facility] [place] Drug Active [facility] [place] Drug Active [facility] R[facility] Drug Active [facility] [place] Drug [facility] Drug [facility] [place] [facility] [place] Drug Active [facility] [place] Drug [facility] [place] Drug Active [facility] RisperDA Drug Active [facility] [place] Drug [facility] Drug [facility] [place] [facility] [place] Drug Active [facility] [place] Drug Active [facility] [place] Drug Active [facility] RisperDA Drug Active [facility] [place] Drug [facility] ZyPRE[facility] [place] [facility] Phenerga Drug Active [facility] [place] Drug [facility] [place] Drug Active [facility] Risper[facility] Drug Active [facility] [place] Drug [facility] ZyPRE[facility] Drug [facility] [place] [facility] Phenerga Drug Active [facility] [place] Drug Active [facility] [place] Drug Active [facility] RisperDA Drug Active [facility] [place] Drug [facility] Drug [facility] [place] [facility] [place] Drug Active [facility] [place] Drug [facility] [place] Drug Active [facility] RisperDA Drug Active [facility] [place] Drug [facility]PRE[facility] [place] [facility] Drug Active [facility] [place] Drug [facility] [place] Drug [facility] RisperDA Drug Active [facility] [place] Drug [facility] ZyPREXA [facility] Phenerga Drug Active [facility] RisperDA Drug Active [facility] Social History Social Habit Start Date Stop Date Quantity Comments Source History of Cigarette Smoker [facility] [place] of tobacco use [facility] Tobacco Comment 2-3 cigs a day [facility] Exposure to Not sure [facility] SARS-CoV-2 [facility] (event) [place] Tobacco use and 2016-06-08 2016-06-08 Never used [facility] y of exposure 00:00:00 00:00:00 [facility] Alcohol intake 2016-06-08 2016-06-08 0 /d University of 00:00:00 00:00:00 [facility] Sex Assigned At [birth year] Universit y of 00:00:00 00:00:00 [facility] Smoking Status Start Date Stop Date Source Social History 2019-01-22 05:00:12 [facility] Current some day smoker 2016-06-08 00:00:00 [facility] Medications Ordered Filled Start Stop Current Ordering Indication Dosage Frequency Signature Comments Components Source Medication Medication Date Date Medication? Clinician (SIG) Name Name cefTRIAXone 2020-10- No 1000mg 1,000 mg, Univers (ROCEPHIN) 11-10 IV ity of 1,000 mg in 08:30: 08:01 [place], [place] NaCl 0.9% 00 :00 ONCE, 1 Medical (NS) 50 mL dose, On Branc h MINI-BAG Wed09/10/21 at 0230, Administer over 30 Minutes, 50 mL
Reas on for Anti-Infec tive: Documented Infection< br>Documen ngozi Infection Site: Urine<br&g t;Duration of Therapy: Other (see Comments) ondansetron 2020-10 No 4mg 4 mg, Slow Univers (ZOFRAN -17 - IV Push, ity of (PF)) 06:45: 05:54 ONCE, 1 [place] injection 4 00 :00 dose, On Medi nicky mg Wed Branch 09/10/21 at 0045, RANDA NaCl 0.9% 2020-10- No 1000mL at 999 Uni vers (NS) bolus 11-10 mL/hr, ity of infusion 05:30: 05:30 1,000 mL, Joe as 1,000 mL 00 :00 IV Medical Infusion, Branch ONCE, 1 dose, On 09/09/21 at 2330, RANDA amoxicillin 2020-10 Yes [id number] 500mg Take 1 Univers 500 mg 11-10 capsule by ity of capsule 00:00: mouth 3 [place] 00 (three) Medical times Branch daily. ondansetron 2019-10- No 4mg 4 mg, [facility] ers (ZOFRAN-ODT 12-01- Oral, ity of ) 15:15: 14:16 ONCE, 1 [place] disintegrat 00 :00 dose, Mon Med ical ing tablet 09/30/20 at Bra nch 4 mg 0915, Routine ondansetron 2019-10- No 4mg 4 mg, [facility] ers (ZOFRAN-ODT 12-01- Oral, ity of ) 14:30: 13:32 ONCE, 1 [place] disintegrat 00 :00 dose, Mon Med ical ing tablet 09/30/20 at Bra nch 4 mg 0830, Routine ondansetron 2019-10 Yes [id number] 4mg Take 1 Univers 4 mg 2-07 tablet by ity of disintegrat 00:00: mouth [place] ing tablet 00 every 8 Medica l (eight) Branch hours as needed for Nausea and Vomiting (N/V). ondansetron 2019-10 Yes [id number] 4mg Take 1 Univers 4 mg 2-07 tablet by ity of disintegrat 00:00: mouth [place] ing tablet 00 every 8 Medica l (eight) Branch hours as needed for Nausea and Vomiting (N/V). ondansetron 2020 Yes [id number] 4mg Take 1 Univers 4 mg 2-07 tablet by ity of disintegrat 00:00: mouth [place] ing tablet 00 every 8 Medica l (eight) Branch hours as needed for Nausea and Vomiting (N/V). ondansetron 2020- Yes [id number] 4mg Take 1 Univers 4 mg 2-07 tablet by ity of disintegrat 00:00: mouth [place] ing tablet 00 every 8 Medica l (eight) Branch hours as needed for Nausea and Vomiting (N/V). ciprofloxac 2019-0 Yes 500 mg = 1 Memoria in 500 mg 4-04 tab, PO, l oral tablet 17:35: [id number], X Yonis 00 4 day, # 8 [...] day, # 12 tab, 0 Refill(s) ciprofloxac 2019-0 Yes 500 mg = 1 Memoria in 500 mg 4-04 tab, PO, l oral tablet 17:35: [id number], X [place] 00 4 day, # 8 tab, 0 Refill(s) Ondansetron 2019-0 Yes 4 mg = 1 Me moria 4 MG Oral 4-04 tab, PO, l Tablet 17:35: Q6H, PRN [place] [Zofran] 00 Nausea/Vom iting, # 20 tab, [...] - (Same as: l 13:26: K-Dur 20) [place] 00 "Do Not Crush" Give with food and full glass of water For patients unable to swallow tablet, dissolve in one half glass of water. Allow about 2 minutes for the tablets to disintegra te. Stir before giving to prepare slurry and administer . Please exclude Patient s with feeding tube less than 14 Citizen Of [place] (Dobhoff, J-tube etc) and pediatric and patients. Potassium No Notes: Memori a Chloride 01-25 (Same as: l 13:26: K-Dur 20) Yonis "Do Not Crush" Give with food and full glass of water For patients unable to swallow tablet, dissolve in one half glass of water. Allow about 2 minutes for the tablets to disintegra te. Stir before giving to prepare slurry and administer . Please exclude Patient s with feeding tube less than 14 Citizen Of [place] (Dobhoff, J-tube etc) and pediatric and patients. Strattera No 0.5 mg/kg, Me moria 01-24 Route: PO, l 14:00: QAM, Yonis Dosing Weight 75, kg, Start date: 01/24/19 9:00:00 CDT, Duration: 30 day, Stop date: 02/22/19 9:00:00 CDT Strattera No 0.5 mg/kg, Me moria 4-02 Route: PO, l 14:00: QAM, [place] 00 Dosing Weight 75, kg, Start date: 01/24/19 9:00:00 CDT, Duration: 30 day, Stop date: 02/22/19 9:00:00 CDT lithium No Notes: Do Memor ia 01-24 not crush l 02:00: or chew. Yonis 00 (Same as: Eskalith-C R) lithium No Notes: Do Memor ia - [...] mL, Memori a saline 0.9% - Rate: 100 l IV 1,000 mL 19:18: ml/hr, Herm stephon Infuse over: 10 hr, Route: IV, Dosing Weight 75 kg, Total Volume: 1,000, Start date: 01/23/19 14:18:00 CDT, Duration: 30 day, Stop date: 02/22/19 14:17:00 CDT, 1.84, m2 Clonazepam No Notes: Memor ia 4- (Same As: l 18:00: KlonoPIN) Yonis 00 Clonazepam No Notes: Memor ia 4- (Same As: l 18:00: KlonoPIN) [place] 00 Flagyl No Notes: Memoria 4- (Same as: l 15:00: Flagyl) Collyer 00 Take with food/ avoid alcohol Cipro No Notes: May Memori a 4- interfere l 15:00: w/enteral [place] 00 feedings - Take 1 hr before or 2 hrs after antacids, dairy pdt & minerals. On empty stomach. Flagyl No Notes: Memoria 4- (Same as: l 15:00: Flagyl) Collyer 00 Take with food/ avoid alcohol Cipro No Notes: February Memori a - interfere l 15:00: w/enteral [place] 00 feedings - Take 1 hr before [...] Yes 40 mEq, Memor ia chloride 20 01 PO, ONCE, l mEq oral 14:20: 0 Yonis tablet, 00 Refill(s) extended release Metronidazo No 500 mg, Mem oria le 500 MG -01 PO, l Oral Tablet 14:20: [id number], 0 H ermann [Flagyl] 00 Refill(s) Ciprofloxac No 500 mg, Mem oria in 500 MG 4-01 PO, l Oral Tablet 14:20: [id number], 0 Yonis [Cipro] 00 Refill(s) potassium Yes 40 mEq, Memor ia chloride 20 -01 PO, ONCE, l mEq oral 14:20: 0 [place] tablet, 00 Refill(s) extended release Metronidazo No 500 mg, Mem oria le 500 MG 4-01 PO, l Oral Tablet 14:20: [id number], 0 H ermann [Flagyl] 00 Refill(s) Ciprofloxac No 500 mg, Mem oria in 500 MG 4-01 PO, l Oral Tablet 14:20: [id number], 0 Yonis [Cipro] 00 Refill(s) Potassium No Notes: Memori a Chloride - (Same as: l 14:: K-Dur 20) Yonis 00 "Do Not Crush" Give with food and full glass of water For patients unable to swallow tablet, dissolve in one half glass of water. Allow about 2 minutes for the tablets to disintegra te. Stir before giving to prepare slurry and administer . Please exclude Patient s with feeding tube less than 14 Citizen Of [place] (Dobhoff, J-tube etc) and pediatric and patients. Potassium No Notes: Memori a Chloride - (Same as: l : K-Dur ) Yonis 00 "Do Not Crush" Give with food and full glass of water For patients unable to swallow tablet, dissolve in one half glass of water. Allow about 2 minutes for the tablets to disintegra te. Stir before giving to prepare slurry and administer . Please exclude Patient s with feeding tube less than 14 Citizen [place] (Dobhoff, J-tube etc) and pediatric and patients. Pepcid No Notes: Memoria 3-31 (Same as: l 22:00: Pepcid) Pepcid No Notes: Memoria 3-31 (Same as: l 22:00: Pepcid) [place] 00 Strattera Yes 0.5 mg/kg, Me moria 3-31 PO, QAM, 0 l 21:08: Refill(s) Yonis lithium 450 Yes 450 mg = 1 [...] oria -31 to exceed l 15:03: 400mg/day. Yonis 00 [...] Estrada doni -31 (Same as: l 09:47: Zokeke) Yonis MEDICATION WASTE Product Size: 4 mg Product Wasted: ___ mg Glucagon 2018-0 No 1 mg, Memoria - Route: IM, l 09:47: Drug form: Yonis 00 PDR/INJ, PRN, Dosing Weight 75.994, kg, PRN Blood Glucose Results, Start date: 01/22/19 4:47:00 CDT, Duration: 30 day, Stop date: 02/21/19 4:46:00 CDT Dextrose No 12.5 gm, Memor ia 50% Syringe 3-31 25 mL, l 09:47: Route: [place] 00 IVP, Drug Form: INJ, Dosing Weight [...] moria IV 3-31 1,000 l 08:52: ml/hr, [place] 00 Infuse Over: 1 hr, Route: IV, 1,000, Drug form: INJ, ONCE, Priority: STAT, Dosing Weight 75.994 kg, Start date: 01/22/19 3:52:00 CDT, Stop date: 01/22/19 3:52:00 CDT NS (Bolus) No 1,000 mL, Me moria IV 3-31 1,000 l 08:52: ml/hr, [place] 00 Infuse Over: 1 hr, Route: IV, [...] moria IV 3-31 1,000 l 04:51: ml/hr, [place] 00 Infuse Over: 1 hr, Route: IV, [...] by ity of mg tablet 14:02: mouth [place] [address] every 6 Medical (six) Branch hours as needed. CLONAZEPAM 2016-0 Yes Take by Uni vers (KLONOPIN 8-15 mouth. ity of ORAL) 14:02: [place] [address] Medical Branch CITALOPRAM 2016-0 Yes Take by Uni vers HYDROBROMID 8-15 mouth. ity of E 14:02: [place] (CITALOPRAM 27 Medical ORAL) Branch ibuprofen 2016-0 Yes 200mg Take 200 Uni vers (ADVIL) 200 8-15 mg by ity of mg tablet 14:02: mouth [place] [address] every 6 Medical (six) Branch hours as needed. CLONAZEPAM 2016-0 Yes Take by Uni vers (KLONOPIN 8-15 mouth. ity of ORAL) 14:02: [place] [address] Medical Branch CITALOPRAM 2016-0 Yes Take by Uni vers HYDROBROMID 8-15 mouth. ity of E 14:02: [place] (CITALOPRAM 27 Medical ORAL) Branch ibuprofen 2016-0 Yes 200mg Take 200 Uni vers (ADVIL) 200 8-15 mg by ity of mg tablet 14:02: mouth [place] [address] every 6 Medical (six) Branch hours as needed. CLONAZEPAM 2016-0 Yes Take by Uni vers (KLONOPIN 8-15 mouth. ity of ORAL) 14:02: [address] Branch CITALOPRAM 2016-0 Yes Take by Uni vers HYDROBROMID 8-15 mouth. ity of E 14:02: [place] (CITALOPRAM 27 Medical ORAL) Branch misoprostol 2015-0 [...] Branch needed for Pain (scale 4-6). naproxen 2014- Yes 500mg Take 1 Tab Un parul (NAPROSYN) 1-16 by mouth 2 ity of 500 mg 00:00: (two) [place] tablet 00 times Medical daily with Branch meals. Vital Signs Vital Name Observation Time Observation Value Comments Source Height/Length 2020-03-04 16:13:54 Measured Systolic blood 2021-09-10 08:01:00 138 mm[Hg] Univer sity of pressure [facility] Diastolic blood 2021-09-10 08:01:00 97 mm[Hg] Unive rsity of [facility] Heart rate 2021-09-10 08:01:00 87 /min Universi ty [facility] Respiratory rate 2021-09-10 08:01:00 20 /min [facility] Oxygen saturation in 2021-09-10 08:01:00 98 /min University of Arterial blood by [facility] Pulse oximetry Branch Body temperature 2021-09-10 04:28:51 37.17 Ruthann [facility] ersity of [facility] Body height 2021-09-10 04:26:00 154.9 cm Universi ty [facility] Body weight 2021-09-10 04:26:00 81.647 kg [facility] BMI 2021-09-10 04:26:00 34.01 kg[facility]m2 [facility] Systolic blood 2021-09-09 20:06:00 150 mm[Hg] Univer sity of [facility] Diastolic blood 2021-09-09 20:06:00 89 mm[Hg] Unive rsity of [facility] Heart rate 2021-09-09 20:06:00 108 /min Universi ty [facility] Body temperature 2021-09-09 20:06:00 37.22 Ruthann Univ ersity of [facility] Respiratory rate 2021-09-09 20:06:00 18 /min Univ [facility] Oxygen saturation in 2021-09-09 20:06:00 99 /min University of Arterial blood by [place] [employer] nicky Pulse oximetry Branch Body weight 2021-09-09 [...] kg/m2 Universi ty of [place] [facility] Height/Length 2021-11-11 11:41:17 157.48 cm Measured Weight Dosing 2021-11-11 11:41:17 72.57 kg Height/Length 2021-11-11 10:30:34 157.48 cm Measured Weight Dosing 2021-11-11 10:30:34 72.57 kg Height/Length 2021-11-11 10:29:11 157.48 cm Measured Weight Dosing 2021-11-11 10:29:11 72.57 kg Height/Length 2021-11-11 10:29:10 157.48 cm Measured Weight Dosing 2021-11-11 10:29:10 72.57 kg Height/Length 2021-11-11 10:28:52 157.48 cm Measured Weight Dosing 2021-11-11 10:28:52 72.57 kg Height/Length 2021-11-11 10:27:48 157.48 cm Measured Weight Dosing 2021-11-11 10:27:48 72.57 kg Height/Length 2021-11-11 10:26:51 157.48 cm Measured Weight Dosing 2021-11-11 10:26:51 72.57 kg Height/Length 2021-11-11 10:26:41 157.48 cm Measured Weight Dosing 2021-11-11 10:26:41 72.57 kg Height/Length 2021-11-11 10:24:56 157.48 cm Measured Weight Dosing 2021-11-11 10:24:56 72.57 kg Height/Length 2021-11-11 10:24:48 157.48 cm Measured Weight Dosing 2021-11-11 10:24:48 72.57 kg Height/Length 2021-11-11 10:23:24 157.48 cm Measured Weight Dosing 2021-11-11 10:23:24 72.57 kg Height/Length 2021-11-11 10:22:46 157.48 cm Measured Weight Dosing 2021-11-11 10:22:46 72.57 kg Height/Length 2021-11-11 10:22:26 157.48 cm Measured Weight Dosing 2021-11-11 10:22:26 72.57 kg Height/Length 2021-11-11 10:21:40 157.48 cm Measured Weight Dosing 2021-11-11 10:21:40 72.57 kg Height/Length 2021-11-11 10:21:35 157.48 cm Measured Weight Dosing 2021-11-11 10:21:35 72.57 kg Height/Length 2021-11-11 10:21:29 157.48 cm Measured Weight Dosing 2021-11-11 10:21:29 72.57 kg Height/Length 2021-11-11 10:21:19 157.48 cm Measured Weight Dosing 2021-11-11 10:21:19 72.57 kg Height/Length 2021-11-11 10:21:18 157.48 cm Measured Weight Dosing 2021-11-11 10:21:18 72.57 kg Height/Length 2021-11-11 10:21:11 157.48 cm Measured Weight Dosing 2021-11-11 10:21:11 72.57 kg Height/Length 2021-11-11 10:20:36 157.48 cm Measured Weight Dosing 2021-11-11 10:20:36 72.57 kg Height/Length 2021-11-11 10:20:34 157.48 cm Measured Weight Dosing 2021-11-11 10:20:34 72.57 kg Temperature Oral (F) 2019-01-28 01:16:00 98.6 F [facility] Systolic (mm Hg) 2019-01-28 01:16:00 [facility] Diastolic (mm Hg) 2019-01-28 01:16:00 [facility] Heart Rate 2019-01-28 01:16:00 [facility] Respitory Rate 2019-01-28 01:16:00 [facility] Systolic (mm Hg) 2019-01-27 20:42:00 Estrada [facility] Diastolic (mm Hg) 2019-01-27 20:42:00 [facility] Heart Rate 2019-01-27 20:42:00 [facility] Respitory Rate 2019-01-27 20:42:00 [facility] Temperature Oral (F) 2019-01-27 20:42:00 98.5 F [facility] Systolic (mm Hg) 2019-01-27 17:00:00 Estrada [facility] Diastolic (mm Hg) 2019-01-27 17:00:00 [facility] Temperature Oral (F) 2019-01-27 17:00:00 98.5 F [facility] Heart Rate 2019-01-27 17:00:00 [facility] Respitory Rate 2019-01-27 17:00:00 [facility] Height 2019-01-22 14:35:00 157.48 cm [facility] BMI Calculated 2019-01-22 14:35:00 [facility] Weight 2019-01-22 14:35:00 Jeanne Somers Weight 2019-01-22 04:34:00 Jeanne Somers Procedures Procedure Date / Time Performing Clinician Source Performed URINALYSIS 2021-09-10 06:03:00 Neena Rogers [facility] URINE DRUG (IMMUNOASSAY) 2021-09-10 06:03:00 Neena Rogers [facility] DRUG Medical [facility] nch SCREEN W/O REFLEX XR CHEST 1 VW 2021-09-10 04:57:30 Neena Rogers [facility] CREATINE KINASE 2021-09-10 04:39:00 Neena Rogers [facility] MAGNESIUM 2021-09-10 04:39:00 Neena Rogers [facility] TROPONIN I 2021-09-10 04:39:00 Neena Rogers [facility] COMP. METABOLIC PANEL 2021-09-10 04:39:00 Neena Rogers [facility] ([id number]) [facility] CBC WITH DIFF 2021-09-10 04:39:00 Neena Rogers [facility] PROTHROMBIN TIME / INR 2021-09-10 04:39:00 Neena Rogers [facility] ACTIVATED PARTIAL 2021-09-10 04:39:00 [facility]-B[facility] 2021-09-10 04:39:00 Neena Rogers [facility] COVID-19 (ID NOW RAPID 2021-09-10 04:39:[address] [facility] TESTING) [facility] TROPONIN I 2021-09-09 21:49:00 Luanne Dumont [facility] COMP. METABOLIC PANEL 2021-09-09 21:49:00 Luanne Dumont [facility] ([id number]) [facility] LITHIUM 2021-09-09 21:49:00 Luanne Dumont [facility] CBC WITH DIFF 2021-09-09 21:49:00 Luanne Dumont [facility] CONSENT/REFUSAL FOR 2021-09-09 19:51:22 Doctor Unassigned, No Un [facility] DIAGNOSIS AND TREATMENT Name Medical Branch URINALYSIS 2020-09-30 13:27:00 Chuy Jackson o f [facility] ADC,CLC OR [facility] ONLY - 2020-09-30 13:27:00 Chuy Jackson [facility] INFLUENZA A & B DIRECT Medical [facility] ANTIGEN COVID-19 (ID NOW RAPID 2020-09-30 13:27:00 Chuy Jackson [facility] TESTING) Medical Branch Encounters Start End Encounter Admission Attending Care Care Encounter Source Date/Time Date/Time Type Type Clinicians Facility Department ID 2020-03-04 Inpatient Ronni Eldridge [facility] PSY [id number] 15:38:00 Ronni Eldridge -[id number] [facility] 2019-01-22 Inpatient E [facility] MED 7500 [facility] W 04:39:00 2021-10-25 2021-10-25 Emergency EM Ronnell [place]FR[place] TERS [id number] [facility] 01:01:00 01:57:00 Lulú [id number] [facility] 2021-09-09 2021-09-10 [facility] [id number] Univers 22:20:00 03:02:00 Neena JIMENEZ 350.1.13.10 i ty of [place] 4.2.7.2.6 [facility] [id number] [address] 2021-09-09 2021-09-10 [facility] [id number] Univers 22:20:00 03:02:00 NEENA tubbs [facility] 2021-09-09 2021-09-10 [facility] [id number] Univers 22:20:00 03:02:00 NEENA tubbs [facility] 2021-09-09 2021-09-09 Emergency Julia [facility] [id number] Univers 14:07:00 17:35:00 Luanne JIMENEZ 350.1.13.10 i ty [facility] 4.2.7.2.686 [facility] [id number] [address] 2021-09-09 2021-09-09 Orders Doctor RIZVI [id number] Univers 00:00:00 00:00:00 Only Unassigned, LANA 350.1.13.10 ity of [facility] 4.2.7.2.686 [facility] [id number] [facility] 009 Branch 2020-09-30 2020-09-30 [facility] [id number] Univers 07:22:00 08:18:00 Chuy Jimenez 350.1.13.10 i ty of [place] 4.2.7.2.686 [facility] [id number] [facility] 084 Branch 2020-09-30 2020-09-30 [facility] [id number] 07:22:00 08:18:00 Chuy Jimenez 350.1.13.10 [place] 4.2.7.2.686 [place] [id number] 2020-09-30 2020-09-30 Emergency X [facility] ERT [id number] Univers 07:22:00 07:22:00 CHUY tubbs [facility] 2020-04-05 2020-04-05 Outpatient Humaira-Mbayo VFP VFP [id number] [facility] 05:44:00 05:44:00 _A_AH [id number] Family Practic e 2020-04-05 2020-04-05 Outpatient Humaira-Mbayo VFP VFP [id number] [facility] 05:44:00 05:44:00 _A_AH 24646 Family Practic e 2020-04-05 2020-04-05 Outpatient Humaira-Mbayo VFP VFP [id number] [facility] 05:44:00 05:44:00 _A_AH 50294 Family Practic e 2020-04-05 2020-04-05 Outpatient Humaira-Mbayo VFP VFP [id number] [place] 05:44:00 05:44:00 _A_AH 55659 Family Practic e 2020-03-04 2020-03-14 Inpatient 3 Ronni Eldridge [facility] PSY [id number] 15:38:00 15:25:00 Ronni Eldridge [facility] 2019-12-13 2019-12-13 Outpatient Humaira-Mbayo VFP VFP [id number] [facility] 07:22:00 07:22:00 _A_AH 07399 Family Practic e 2019-01-22 2019-01-28 Inpatient [facility] [id number] [facility] 04:33:00 04:40:00 r Yonis 00 l [facility] 2018-02-21 2018-02-20 Inpatient E [facility] [id number] 14:48:00 13:18:00 [facility] Results Test Description Test Time Test [...] 0.1-0.8 N UA RFLX MICR CULT IF [id number] 03:42:00 Test Item Value Reference Range Interpretation [...] /HPF NONE A code = AMORU) TROPONIN-I [id number] 01:52:00 Test Item Value Reference Range Interpretation Comments TROPONIN-I RAPID 0.00 ng/mL 0.00-0.08 N Performed b y certified (test code = plant operator at [facility] Negative: <= 0.0 8 Positive: [...] changes in trop onin levels characteristic of CA. BASIC METABOLIC [id number] 01:47:00 Test Item Value Reference Range Interpretation [...] code = POCGLU) 110 MG/DL UA DIPSTICK [id number] 01:32:00 Test Item Value Reference Range Interpretation Comments UA GLUCOSE DIPSTIC POC NEGATIVE NEGATIVE (test code = GLUUP) UA BILIRUBIN DIPSTICK NEGATIVE NEGATIVE (test code = BILU) UA KETONE DIPSTICK POC 1+ NEGATIVE A (test code = KETUP) UA SPECIFIC GRAVITY (test 1.030 1.005-1.030 N code = SGU) UA BLOOD DIPSTIC POC NEGATIVE NEGATIVE Perform ed by (test code = BLUP) certified plant operator at [facility] UA PH DIPSTIC POC (test 5 5.0-7.0 N code = PHUP) UA PROTEIN DIPSTICK POC NEGATIVE NEGATIVE (test code = DPROUP) UA UROBILINIOGEN QUAL NORMAL 0.2-1.0 (test code = UROQL) UA NITRITE DIPSTICK POC NEGATIVE Negative (test code = NITUP) UA LEUKOCYTE ESTERASE W 2+ NEGATIVE A REFLEX (test code = LEUUR) TROPONIN [id number] 05:26:53 Test Item Value Reference Interpretation Comments Range TROPONIN I (test 0.003 ng/mL See_Comment [Automated code = 7979788306) message] The system which generated this result [...] biotin. Lab Interpretation Normal (test code = 02724-8) [facility] [id number] 05:24:16 Test Item Value Reference Range Interpretation Comments NT-proBNP (test code 35 pg/mL See_Comment [Autom ated = 4331137854) message] The system which generated this result transmitted reference range : <=125. The reference range was not used to interpret this result as normal/abnormal . PERRY (test code = PERRY) Biotin has been reported to cause a negative bias, interpret results relative to patient's use of biotin. Lab Interpretation Normal (test code = 10464-2) [facility]2021-11-17 05:16:51 Test Item Value Reference Range Interpretation Comments MAGNESIUM (test code = 4499101665) 1.8 mg/dL 1.7-2.4 Lab Interpretation (test code = Normal 44013-8) [facility] MET[facility]OLIC PANEL (87711)2021-09-10 05:16:31 Test Item Value Reference Range Interpretation Comments NA (test code = 139 mmol/L 135-145 8337607274) K (test code = 4.0 mmol/L 3.5-5.0 6410501642) CL (test code = 108 mmol/L 98-108 7191263911) CO2 TOTAL (test code 25 mmol/L 23-31 = 7567344575) AGAP (test code = 2-16 4277490977) BUN (test code = 14 mg/dL 7-23 3926289772) GLUCOSE (test code = 88 mg/dL 70-110 4516899084) CREATININE (test code 0.89 mg/dL 0.50-1.04 = 3721973849) TOTAL BILI (test code 0.5 mg/dL 0.1-1.1 = 3345277622) CALCIUM (test code = 10.3 mg/dL 8.6-10.6 4506722427) T PROTEIN (test code 6.9 g/dL 6.3-8.2 = 7025941469) ALBUMIN (test code = 4.3 g/dL 3.5-5.0 6043574160) ALK PHOS (test code = 72 U/L 34-122 9610113349) ALTv (test code = 17 U/L 5-35 2-6) AST(SGOT) (test code 29 U/L 13-40 = 8904382950) eGFR (test code = mL/min/1.73m2 0072613834) PERRY (test code = PERRY) Association of [...] urine or abnormalities in imaging tests). [facility]AT[facility] [id number] 05:16:16 Test Item Value Reference Range Interpretation Comments CK (test code = 9618491417) 267 U/L 33-194 H Lab Interpretation (test code = Abnormal 81884-9) [facility]IV[facility] PARTIAL THRMPLAS [id number] 05:05:32 Test Item Value Reference Range Interpretation [...] seconds. Lab Interpretation Normal (test code = 00917-4) [facility]hamPROTHROMBIN TIME / [id number] 05:03:30 Test Item Value Reference Range Interpretation [...] tions. Lab Interpretation (test Normal code = 66052-1) [facility] WITH [id number] 04:57:13 Test Item Value Reference Range Interpretation Comments WBC (test code = See_Comment [Automated 8190-2) message] The sy stem which generated this result transmitted reference range : 4.30 - 11.10 10*3/?L. The reference range was not used to interpret this result as normal/abnormal . RBC (test code = See_Comment [Automated 589-8) message] The sy stem which generated this [...] RDW-SD (test code = 41.2 fL 39.0-49.9 99381-1) RDW-CV (test code = 13.0 % 12.0-15.5 788-0) PLT (test code = See_Comment H [Automated 777-3) message] The sy stem which generated this result transmitted reference range : 166 - 358 10*3/ ?L. The reference r katie was not used to interpret this result as normal/abnormal . MPV (test code = 9.6 fL 9.5-12.9 29303-9) NRBC/100 WBC (test See_Comment [Automat ed code = 7572961911) message] The system which generated this result transmitted reference range : 0.0 - 10.0 /100 WBCs. The refer ence range was not u sed to interpret th is result as normal/abnormal . NRBC x10^3 (test code <0.01 See_Comment [Auto mated = 3836478997) message] The s ystem which generated this result transmitted reference range : 10*3/?L. The reference range was not used to interpret this result as normal/abnormal . GRAN MAT (NEUT) % 61.9 % (test code = 770-8) IMM GRAN % (test code 0.30 % = 1688987968) LYMPH % (test code = 26.0 % 736-9) MONO % (test code = 9.5 % 5905-5) EOS % (test code = 1.6 % 713-8) BASO % (test code = 0.7 % 706-2) GRAN MAT x10^3(ANC) 5.91 10*3/uL 1.88-7.09 (test code = 7380781923) IMM GRAN x10^3 (test 0.03 10*3/uL 0.00-0.06 code = 4846455896) LYMPH x10^3 (test code 2.48 10*3/uL 1.32-3.29 = 731-0) MONO x10^3 (test code 0.91 10*3/uL 0.33-0.92 = 742-7) EOS x10^3 (test code = 0.15 10*3/uL 0.03-0.39 711-2) BASO x10^3 (test code 0.07 10*3/uL 0.01-0.07 = 704-7) Lab Interpretation Abnormal (test code = 32479-4) [facility] [id number] 22:24:55 Test Item Value Reference Interpretation Comments Range TROPONIN I (test 0.002 ng/mL See_Comment [Automated code = 7501720869) message] The system which generated this result [...] biotin. Lab Interpretation Normal (test code = 37416-5) [facility]hamLITH[facility]UM2021-11-16 22:24:34 Test Item Value Reference Range Interpretation Comments [place] (test code = <0.2 0.6-1.2 L 2380329703) PERRY (test code = PERRY) Toxic Range: ? Greater than 1.2 mmol/L Lab Interpretation (test Abnormal code = 05809-6) [facility]COMP. METABOLIC PANEL (16564)2021-09-09 22:13:54 Test Item Value Reference Range Interpretation Comments NA (test code = 139 mmol/L 135-145 1735535734) K (test code = 4.0 mmol/L 3.5-5.0 3849016284) CL (test code = 105 mmol/L 98-108 9020894882) CO2 TOTAL (test code 26 mmol/L 23-31 = 7976617191) AGAP (test code = 2-16 5561378325) BUN (test code = 11 mg/dL 7-23 4621866262) GLUCOSE (test code = 109 mg/dL 70-110 0284206092) CREATININE (test code 0.71 mg/dL 0.50-1.04 = 3678683370) TOTAL BILI (test code 0.6 mg/dL 0.1-1.1 = 8666551360) CALCIUM (test code = 10.4 mg/dL 8.6-10.6 0031060998) T PROTEIN (test code 7.6 g/dL 6.3-8.2 = 0349627411) ALBUMIN (test code = 4.7 g/dL 3.5-5.0 6013227233) ALK PHOS (test code = 78 U/L 34-122 9833642512) ALTv (test code = 19 U/L 5-35 1742-6) AST(SGOT) (test code 28 U/L 13-40 = 0729472855) eGFR (test code = mL/min/1.73m2 2984617809) PERRY (test code = PERRY) Association of [...] or urine or abnormalities in imaging tests). [facility] WITH [id number] 22:03:32 Test Item Value Reference Range Interpretation [...] RDW-SD (test code = 40.2 fL 39.0-49.9 61070-7) RDW-CV (test code = 12.9 % 12.0-15.5 788-0) PLT (test code = See_Comment H [Automated 777-3) message] The sy stem which generated this result transmitted reference range : 166 - 358 10*3/ ?L. The reference r katie was not used to interpret this result as normal/abnormal . MPV (test code = 9.4 fL 9.5-12.9 L 37629-2) NRBC/100 WBC (test See_Comment [Automat ed code = 6208837154) message] The system which generated this result transmitted reference range : 0.0 - 10.0 /100 WBCs. The refer ence range was not u sed to interpret th is result as normal/abnormal . NRBC x10^3 (test code <0.01 See_Comment [Auto mated = 4301753103) message] The s ystem which generated this result transmitted reference range : 10*3/?L. The reference range was not used to interpret this result as normal/abnormal . GRAN MAT (NEUT) % 67.1 % (test code = 770-8) IMM GRAN % (test code 1.00 % = 8027329401) LYMPH % (test code = 21.4 % 736-9) MONO % (test code = 7.9 % 5905-5) EOS % (test code = 1.8 % 713-8) BASO % (test code = 0.8 % 706-2) GRAN MAT x10^3(ANC) 7.35 10*3/uL 1.88-7.09 H (test code = 3274733346) IMM GRAN x10^3 (test 0.11 10*3/uL 0.00-0.06 H code = 0948808677) LYMPH x10^3 (test code 2.34 10*3/uL 1.32-3.29 = 731-0) MONO x10^3 (test code 0.86 10*3/uL 0.33-0.92 = 742-7) EOS x10^3 (test code = 0.20 10*3/uL 0.03-0.39 711-2) BASO x10^3 (test code 0.09 10*3/uL 0.01-0.07 H = 704-7) Lab Interpretation Abnormal (test code = 76035-0) [facility] - INFLUENZA A & B DIRECT [id number] 14:04:00 Test Item Value Reference Range Interpretation Comments Influenza A (test code = 13129-9) Negative Negative Influenza B (test code = 38225-0) Negative Negative Lab Interpretation (test code = Normal 06008-2) [facility]COVID-19 (ID NOW RAPID TESTING)2020-09-30 14:03:00 Test Item Value Reference Range Interpretation Comments SARS-CoV-2 Rapid ID NOW Not Detected Not Detected (test code = 29489-8) PERRY (test code = PERRY) ID NOW COVID-19 Assay is an isothermal nucleic acid amplification test intended for the qualitative detection of nucleic acid from SARS-CoV-2 viral RNA in nasopharyngeal (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 It is used under Emergency Use [...] indicated. Lab Interpretation Normal (test code = 69740-8) [facility]2020-12-07 13:55:00 Test Item Value Reference Range Interpretation Comments APPEARANCE (test code = Hazy Clear A 0785910725) COLOR (test code = Yellow Yellow 0996209135) PH (test code = 4.8-8.0 4168959007) SP GRAVITY (test code = 1.003-1.030 2927773482) GLU U QUAL (test code = Normal Normal 3463893861) BLOOD (test code = Negative Negative 5187039759) KETONES (test code = 5 mg/dL Negative A 7494781647) PROTEIN (test code = Negative Negative 2887-8) UROBILIN (test code = 2.0 mg/dL Normal A 1183939413) BILIRUBIN (test code = Negative Negative 2305512016) NITRITE (test code = Negative Negative 2680201722) LEUK ROZINA (test code = 25/uL Negative A 7572341242) RBC/HPF (test code = See_Comment [Autom ated message] 7990214637) The system [employer] generated this result transmit ngozi reference range : 0 - 3 HPF. The refe rence range was not u sed to interpret th is result as normal/abnormal . WBC/HPF (test code = See_Comment [Autom ated message] 9539843112) The system [employer] generated this result transmit ngozi reference range : 0 - 5 HPF. The refe rence range was not u sed to interpret th is result as normal/abnormal . BACTERIA (test code = Few Negative A 0600283821) MUCOUS (test code = Slight Negative LPF A 2426480173) SQ EPITH (test code = HPF 3863394844) Lab Interpretation (test Abnormal code = 37778-3) [facility]hamRPR Rrtvrevlmof1776-39-63 16:42:24 Test Item Value Reference Range Interpretation [...] = 10-24-2020 N Expiration Dt) Thyroid Stimulating Sulgzpm1803-48-32 08:35:16 Test Item Value Reference Range Interpretation Comments TSH (test code = TSH) 1.170 mIU/mL 0.270-4.200 Lipid Dhpkf1521-42-04 08:21:19 Test Item Value Reference Range Interpretation Comments Cholesterol Total 254 mg/dL 0-200 H RISK OF HE ART (test code = DISEASEPublishe d by Cholesterol Total) [place] [employer] Cathie lyte Optimal Borderl ine [...] calculation is LDL/HDL Ratio=L DL Calc/HDL Chol XYSRIYKXOTSD6734-05-57 08:24:008.6[facility] UyffempRGVMWSABAAUH4063-50-57 08:24:69116Mjsbbrfe TubvpejSCXEFFMOKWDX6232-03-37 08:24:0027[facility] CIXTXHAZNQBD9208-63-40 08:24:50410Tstildjp EyssytqAPHUULVEPGKV7821-91-02 08:24:003.6[facility] YkhtwgpBHJBNPZHCXWY0982-90-41 08:24:000.70[facility] XVRFFOYVGWPH6847-67-04 08:24:008.4[facility] KvusewqTRLBPOAKBMLN3000-29-20 08:24:15112Xzgrdtnj XpixmxqEAENDSXBZITE9287-38-61 08:24:0086[facility] VHZABHKQMRUI0175-46-34 08:24:006[facility] JjqwouxTPMYQQEOBH7984-49-72 08:24:00 11.6[facility] WuvjeidHMMXUIOKCS1134-52-66 08:24:003.78[facility]annHEMATOLOGY 2019-01-26 08:24:0013.3[facility] ZaudzjlJMROHCNRUM2327-17-52 08:24:0034.0[facility] IasxxueDFVRALPCNU4671-02-58 08:24:006.3[facility] SynwfocOQDDDCBGNI1275-96-89 08:24:00 Test Item Value Reference Range Interpretation Comments MCH (test code = MCH) 30.7 pg 27.0-31.0 [facility] NnnzoehEJUIVGXQMW4537-44-39 08:24:0090.3[facility]annHEMATOLOGY 2019-01-26 08:24:0034.2[facility] UydgcliEWLFVNCCSL7035-78-85 08:24:53486Rsyvigip BdaoafbTMRAKNJUOP7080-80-20 08:24:007.5[facility] YwlljzaNQFIVLUXBXTQ9128-13-00 08:24:008.emorial MnqihhpZQQCKNXMHMQD3113-03-94 08:24:36443Uskzlfrg Collyer XSQWXHIEYOLX1751-06-64 08:24:0027[facility] PzmeiuuQHOUOCFKKART8015-48-61 08:24:00 139[facility] PzsiijfFNMGDXKMANRJ5479-27-52 08:24:003.6[facility] BFERLFUMKJPK8492-27-73 08:24:000.70[facility] MbeyrxbWHUVQPDYWCKT0846-65-72 08:24:008.4[facility] VjzuesbQIBFILQKMSXK1824-36-71 08:24:45916Vyspvnle Oynis ZKBCJLFHQMPP2854-52-29 08:24:0086[facility] GnjfwlnEBHRCQYBFESZ3849-91-73 08:24:00 6[facility] NpcumjbVTRUEYUYDG5921-95-90 08:24:0011.6[facility] HermannHEMATOLOGY 2019-01-26 08:24:003.78[facility] LrsrwzmRMIQEJIMNN4834-70-80 08:24:0013.3[facility] UpntiekBQMMBMHCMJ9216-92-05 08:24:0034.0[facility] WtxihqlAFBQUNIXSU7109-67-42 08:24:006.3[facility] CftjgqoDPRJNFLTCB1068-49-89 08:24:00 Test Item Value Reference Range Interpretation Comments MCH (test code = MCH) 30.7 pg 27.0-31.0 [facility] OiecrvbZIFNDNQHZT6445-78-81 08:24:0090.3[facility]annHEMATOLOGY 2019-01-26 08:24:0034.2[facility] EskrjegROPGPVIITS7923-35-74 08:24:85694Urvshmra DximxrpQDILCFQHQN3428-16-37 08:24:007.5[facility] HermannCHEM FCRXX9077-89-53 09:14:77162Karsdyku HermannCHEM TJZTW6162-65-17 09:14:008.5[facility] HermannCHEM OCYSS5217-98-46 09:14:0013.3[facility] HermannCHEM ZPZRR8352-26-29 09:14:0024 [facility] HermannCHEM GNEVZ4863-90-61 09:14:54281Irrzahup HermannCHEM PANEL 2019-01-25 09:14:0081[facility] HermannCHEM NKOKZ0209-97-96 09:14:002[facility] HermannCHEM KUYMG8669-90-01 09:14:003.3[facility] HermannCHEM IDSLG7882-86-67 09:14:000.60[facility] HermannCHEM HHTMF5248-88-28 09:14:53541Kkedzpix HermannCHEM ZXHFY1776-61-66 09:14:09517Xolanlta HermannCHEM DVLXK6682-10-58 09:14:008.5 [facility]annCHEM CYZVL8688-10-73 09:14:0013.3[facility] HermannCHEM PANEL 2019-01-25 09:14:0024[facility] HermannCHEM GJOIC3233-06-86 09:14:75492Ktrjqtnw HermannCHEM BTPXE0211-39-38 09:14:0081[facility] HermannCHEM CTIOM6430-66-89 09:14:002[facility] HermannCHEM USBWP9190-83-50 09:14:003.3[facility] HermannCHEM NZVPY5821-48-82 09:14:000.60[facility] HermannCHEM VHDIQ1417-39-09 09:14:49969 [facility]annMOLECULAR MVWXUJIOBU0463-80-68 16:22:00Negative (01/23/19 11:22 AM)[facility] HermannMOLECULAR NXLERRZAUU9183-32-51 16:22:00Negative (01/23/19 11:22 AM)[facility]annCHEM ANEUO5405-79-25 15:42:002.76[facility] HermannCHEM PANEL 2019-01-23 15:42:002.76[facility]annCHEM RWCZT1076-48-22 12:32:000.9[facility]annCHEM JBREU9113-08-35 12:32:000.9[facility]annCHEM JTLMU2415-80-04 10:50:002.0[facility]annCHEM AWXNI4531-51-55 10:50:85308Mnqviiex HermannCHEM OERPH5997-37-32 10:50:0023[facility] HermannCHEM GNIVD5789-74-65 10:50:24960 [facility]annCHEM KHDUK1643-40-02 10:50:003.1[facility] HermannCHEM PANEL 2019-01-23 10:50:45341Mpvbmswd HermannCHEM HXTXF8692-95-21 10:50:005[facility] HermannCHEM OFTON7119-11-25 10:50:000.50[facility]annCHEM KOUHK6989-36-33 10:50:007.8[facility] HermannCHEM DNQHK7299-90-23 10:50:0083[facility]annCHEM XFNWT5972-98-54 10:50:0010.1[facility] CjrcynfNALQAJHLKS6391-30-81 10:50:000.2 [facility] IlqanogKDBLCSPHVR1264-38-84 10:50:000.8[facility] HermannHEMATOLOGY 2019-01-23 10:50:005.5[facility] UmsbvobJLCKPXFQAT2160-80-85 10:50:002.2[facility] PkcfxliCBMGIEYZXL1920-65-23 10:50:000.1[facility] OpttodkNKXVGXGSPB4877-71-84 10:50:0063.6[facility] PkrwcceWZZCPSTDGU4706-21-07 10:50:008.9[facility] BTUYRHQVCJ1843-88-02 10:50:002.3[facility] SbvtginNEBFWOQARK4439-14-10 10:50:00 Normal (01/23/19 5:50 AM)[facility] EacqyyqSAXBKGRPKZ6538-34-99 10:50:00Normal (01/23/19 5:50 AM)[facility] SitojmxEVLTYVRNMP1727-95-96 10:50:0025.1[facility] JdwoxtsEYHNURCXYV5462-95-93 10:50:0013.1[facility] WxnwvwuSIKAVVGWIV3116-34-02 10:50:26757Purdzddk OoqfzlaLZCJDMSYTK7504-12-97 10:50:007.7[facility] Yonis EDQTYUSXIM1364-00-24 10:50:008.6[facility] BgemerrQOTZZKKHUM7326-90-83 10:50:00 10.0[facility] YbpkoszJEQRPMIHIW8737-14-94 10:50:0034.6[facility] HermannHEMATOLOGY 2019-01-23 10:50:0028.7[facility] UikpgnkGNFTVRMUXD1825-65-63 10:50:0087.8[facility] KrdicceZJYQHIDXGE1353-42-62 10:50:00 Test Item Value Reference Range Interpretation Comments MCH (test code = MCH) 30.4 pg 27.0-31.0 [facility] AffecppQVWMPFXUUJ9559-85-34 10:50:003.27[facility]annHEMATOLOGY 2019-01-23 10:50:34336Lrxkotau XmodruoJZEJQAHRTV4808-33-22 10:50:007.7[facility] HermannCHEM DWXVP0723-77-37 10:50:002.0[facility]annCHEM SKCTR5134-99-50 10:50:53101Yskejqbw HermannCHEM XWLHK8595-88-69 10:50:0023[facility]annCHEM FSJNG9293-48-51 10:50:46202Bwaekmrh McdpcmkHUABAABHBS6607-15-38 10:50:008.6 [facility]annCHE[facility] KPJEX5222-97-83 10:50:003.1[facility]annCHEM PANEL 2019-01-23 10:50:22802Gljcgido HermannCHEM XKWZM7305-44-90 10:50:005[facility]annCHEM VASVF4398-01-82 10:50:000.50[facility]annCHEM QZSNL8340-71-46 10:50:007.8[facility] RlpximfHHXUOATFSI2373-38-42 10:50:0010.0[facility]annCHEM SRPTV0190-01-85 10:50:0083[facility]annCHEM XPXKH2666-60-09 10:50:0010.1 [facility] GqslycsRNQTDOFOJH4197-38-80 10:50:000.2[facility]annHEMATOLOGY 2019-01-23 10:50:000.8[facility] KbdjzjyEKYPZXWGSX1000-70-40 10:50:005.5[facility] WyzobelFCEJIVWHLW3986-68-47 10:50:0034.6[facility] MfdjtpjFDBEFHFJJU5847-30-86 10:50:002.2[facility] DbaqrfsUKMOGTXMKO2075-65-60 10:50:000.1[facility] RMPKYPCRJR8811-47-13 10:50:0063.6[facility] BdvimyyFCFMPIXRDB4893-27-04 10:50:00 8.9[facility] TgmdyhzLCCHXBVXBO6864-37-23 10:50:002.3[facility]annHEMATOLOGY 2019-01-23 10:50:0028.7[facility] DxlvgbkWSQXJLYLST8169-16-14 10:50:00Normal (01/23/19 5:50 AM)[facility] CjqucymHVHQVAEEBW3696-92-47 10:50:00Normal (01/23/19 5:50 AM)[facility] LhgwkxkETVHLBGQJP0861-25-90 10:50:0025.1[facility]annHEMATOLOGY 2019-01-23 10:50:0013.1[facility] IraqznmMBRQUABOEV5908-63-30 10:50:0087.8[facility] XlrlouvUWKVCQZVWP8664-10-97 10:50:00 Test Item Value Reference Range Interpretation Comments MCH (test code = MCH) 30.4 pg 27.0-31.0 [facility] GuyojbnYBRTYJGUHQ9109-09-86 10:50:003.27[facility]annCHEM PANEL 2019-01-22 11:32:002.4[facility]annCHEM RECWG8582-70-83 11:32:002.4[facility]annCHEM MDUQQ4784-87-23 09:04:003.0[facility]annCHEM YTZHC7250-94-51 09:04:003.0[facility]annURINE AND IYWFG5573-08-96 07:14:00 Test Item Value Reference Range Interpretation Comments UA Spec Grav (test code = UA Spec 1.014 1 Grav) [facility] ILGXS7834-51-03 07:14:00 Test Item Value Reference Range Interpretation Comments UA pH (test code = UA pH) 6.0 1 5.0-8.0 [facility] CZZWK0896-46-81 07:14:00Negative (01/22/19 2:14 AM) [facility] EBSTX4827-03-65 07:14:00Negative *NA*(01/22/19 2:14 AM) [facility] QGFIY7973-43-09 07:14:00Negative *NA*(01/22/19 2:14 AM) [facility] DTHWG9054-95-19 07:14:00Negative *NA*(01/22/19 2:14 AM) [facility] OBTIL6893-79-79 07:14:00Negative (01/22/19 2:14 AM) [facility] WFINF8435-71-38 07:14:00Negative (01/22/19 2:14 AM) [facility] NFFAG4196-61-46 07:14:00Negative (01/22/19 2:14 AM) [facility] FYSZN0549-13-32 07:14:00<1[facility] IFDHJ2073-08-03 07:14:0025[facility] DGXYB9411-31-83 07:14:002 [facility] QTEYT5858-91-78 07:14:00Light Yellow *NA*(01/22/19 2:14 AM)[facility] PXLRQ5834-68-84 07:14:00Clear (01/22/19 2:14 AM) [facility] BJARK5329-22-70 07:14:00 Test Item Value Reference Range Interpretation Comments UA Spec Grav (test code = UA Spec 1.014 1 Grav) [facility] FLCLV8985-48-21 07:14:00 Test Item Value Reference Range Interpretation Comments UA pH (test code = UA pH) 6.0 1 5.0-8.0 [facility] [id number] 07:14:00Negative (01/22/19 2:14 AM) [facility] LZZCA4284-46-90 07:14:00Negative *NA*(01/22/19 2:14 AM) [facility] KHDNY0784-47-58 07:14:00Negative *NA*(01/22/19 2:14 AM) [facility] CKVFR2649-58-09 07:14:00Negative *NA*(01/22/19 2:14 AM) [facility] EUKSA3026-75-49 07:14:00Negative (01/22/19 2:14 AM) [facility] NAJUQ5465-20-22 07:14:00Negative (01/22/19 2:14 AM) [facility] LWYPX9272-79-61 07:14:00Negative (01/22/19 2:14 AM) [facility] HRECW7554-20-95 07:14:00<1[facility] XNUAQ2433-79-60 07:14:0025[facility] DSZJU6431-57-68 07:14:002 [facility] HJIDB6651-32-04 07:14:00Light Yellow *NA*(01/22/19 2:14 AM)[facility] QQVPA9505-62-83 07:14:00Clear (01/22/19 2:14 AM) [facility] LmwkubcFSHAV3733-37-22 05:16:000.90[facility] GrduwhlESZOY5336-53-42 05:16:000.90[facility] KrcabotXKKXJOETGG6527-96-57 05:01:0086.5[facility] XYFNQYUMVQ2685-20-83 05:01:005.7[facility] RkhjgwwVQQWGMRIPP8576-92-84 05:01:006.9 [facility] ArqfcvgZXDXOZBXQQ5080-42-33 05:01:009.9[facility]annHEMATOLOGY 2019-01-22 05:01:0032.8[facility] NkktmixOFYEMNIMON7879-34-01 05:01:0013.6[facility] KjpzoxzUZCQUNAUZQ1234-12-16 05:01:57453Gsddelbq FbjikgzVWNKPNIYPH1681-36-24 05:01:007.3[facility] EushzatTSYIXXOIOS4411-39-32 05:01:0014.0[facility] VABJJEOJVE8470-78-24 05:01:004.85[facility] UotpcdlIRLCBFZAVZ9920-49-34 05:01:00 42.7[facility] UvfzrrqHNYJSNWPGT5292-05-16 05:01:00 Test Item Value Reference Range Interpretation Comments MCH (test code = MCH) 29.0 pg 27.0-31.0 [facility] KonvagqAFDLRGQXXB7531-16-19 05:01:0088.2[facility]annHEMATOLOGY 2019-01-22 05:01:00 Test Item Value Reference Range Interpretation Comments INR (test code = INR) 0.96 1 0.85-1.17 [facility] QbnjhlfWEIXSEFKMM4144-54-78 05:01:00 Test Item Value Reference Range Interpretation Comments PT (test code = PT) 12.6 s 12.0-14.7 [facility] FkfnojrIXIBCLFYFP6594-77-60 05:01:00 Test Item Value Reference Range Interpretation Comments PTT (test code = PTT) 25.9 s 22.9-35.8 [facility]BLOOD BANK DMDKUEB0420-87-36 05:01:00Negative (01/22/19 12:01 AM) [facility]annCARDIAC EYYCYFI7771-17-15 05:01:00<0.02[facility] CARDIAC IZAIDAI5411-27-82 05:01:0049[facility] HermannCHEM LHHJR8501-36-51 05:01:000.6[facility]annCHEM GMSAF0287-96-27 05:01:47194Pnpyzqfu HermannCHEM HIOQQ0621-08-23 05:01:004.0[facility]annCHEM IJMKX5173-20-90 05:01:0017 [facility]annCHE[facility] PRZVB4706-14-54 05:01:0025[facility]annCHEM PANEL 2019-01-22 05:01:008.1[facility]annCHEM MNWKV9170-23-82 05:01:00 Test Item Value Reference Range Interpretation Comments B/C Ratio (test code = B/C Ratio) 20 1 6-25 [facility]CHE[facility] BHFQR5894-88-65 05:01:00 Test Item Value Reference Range Interpretation Comments A/G Ratio (test code = A/G Ratio) 1.0 1 0.7-1.6 [facility]CHE[facility] WKMXB0121-77-21 05:01:004.1[facility]annCHEM PANEL 2019-01-22 05:01:006.90[facility] EbpdfjbNQPFYXTXXMMBJ0107-58-38 05:01:00Negative *NA*(01/22/19 12:01 AM)[facility] KbrlistSGCRMBPQNS7492-02-89 05:01:000.1[facility] QazbanzUMBZBCVOES3367-44-18 05:01:000.7[facility] RfkyypxPOWJXRZSNS3278-44-20 05:01:000.0[facility] KmuqlynPVAXXWDFSK2071-94-35 05:01:000.0[facility] EFTVWXDXRO4356-08-74 05:01:000.9[facility] ZgdpbphHFPAJNCOII7083-15-37 05:01:008.6 [facility] NwogaioEQBVOKLALZ0836-35-89 05:01:000.6[facility]annHEMATOLOGY 2019-01-22 05:01:0086.5[facility] LwgwpywFSCNTQIIWI7605-09-07 05:01:005.7[facility] NaamgvlSHOPYRXGEC8393-45-16 05:01:006.9[facility] IrbvbduRYFGKEBNWK3318-75-54 05:01:009.9[facility] OdnyfftGYLBXWZYEX4053-02-82 05:01:0032.8[facility] TZUGIIKBNQ3750-38-08 05:01:0013.6[facility] VnftpwjGLDQFPNFNY6894-87-41 05:01:00 443[facility] AexkammYBJBBPMGBM3582-00-00 05:01:007.3[facility]annHEMATOLOGY 2019-01-22 05:01:0014.0[facility] QrdhjrbZPOEZOFYQE8237-46-43 05:01:004.85[facility] JrmixptKBLFBYYGUQ0343-04-05 05:01:0042.7[facility] RqgbylpMHPTCMUNJB1569-96-29 05:01:00 Test Item Value Reference Range Interpretation Comments MCH (test code = MCH) 29.0 pg 27.0-31.0 [facility] XkmwwqwZYUZYMKTJY8429-71-97 05:01:0088.2[facility]annHEMATOLOGY 2019-01-22 05:01:00 Test Item Value Reference Range Interpretation Comments INR (test code = INR) 0.96 1 0.85-1.17 [facility] QemtbbkZMQSLQFWYU0546-79-06 05:01:00 Test Item Value Reference Range Interpretation Comments PT (test code = PT) 12.6 s 12.0-14.7 [facility] LdbpokaMEWIYLOCYP0229-12-11 05:01:00 Test Item Value Reference Range Interpretation Comments PTT (test code = PTT) 25.9 s 22.9-35.[address] [facility] [address] EJLPYJI6504-29-56 05:01:00Negative (01/22/19 12:01 AM) [facility] YIOYWFT3656-34-68 05:01:00<0.02[facility] CARDIAC RUCGBLT2530-42-63 05:01:0049[facility]annCHEM CXAXR9841-53-47 05:01:000.6[facility]annCHEM UQXZU2074-84-05 05:01:85130Rgixcods HermannCHEM MYJDJ2383-87-56 05:01:004.0[facility]annCHEM BHCTX7884-24-94 05:01:0017 [facility]annCHE[facility] TPSEK3770-73-45 05:01:0025[facility]annCHEM PANEL 2019-01-22 05:01:008.1[facility]annCHEM RKFPJ2608-16-05 05:01:00 Test Item Value Reference Range Interpretation Comments B/C Ratio (test code = B/C Ratio) 20 1 6-25 [facility]annCHE[facility] XVCYC4834-76-48 05:01:00 Test Item Value Reference Range Interpretation Comments A/G Ratio (test code = A/G Ratio) 1.0 1 0.7-1.6 [facility]annCHE[facility] LBUZU1587-99-40 05:01:004.1[facility]annCHEM PANEL 2019-01-22 05:01:006.90[facility] NjchdgdBOSRAFZLRPOYK0223-58-79 05:01:00Negative *NA*(01/22/19 12:01 AM)[facility] IygrtovUMFUOLCZIF7587-75-37 05:01:000.1[facility] SjxchigZSEHLTNJYQ1957-74-87 05:01:000.7[facility] YxefisqVUYIDGFPOQ1327-48-66 05:01:000.0[facility] TippzlxQATHVVQDOY6537-19-09 05:01:000.0[facility] SAKYIQVDUD8349-11-77 05:01:000.9[facility] BdqvbhfTXODUPBTLC5944-10-66 05:01:008.6 [facility] PfxvzzkVFGJBHGBLV1275-59-53 05:01:000.6[facility] XhplhzoUUL0V8674-04-89 14:36:00 Test Item Value Reference Range Interpretation [...] 0.00-0.01 N code = ETOHU) Comprehensive Metabolic Vaurx5756-08-59 14:36:00 Test Item Value Reference Range Interpretation [...] the [employer],http ://nkd ep.nih.gov Urinalysis Wuxttiox1222-64-58 14:32:00 Test Item Value Reference Range Interpretation Comments Color (test code = COLOR) Yellow Yellow,Straw,Pl N yellow Clarity (test code = Clear Clear N CLAR) Specific [place] (test 1.024 1.001-1.035 N code = SPGR) [...] code = Few /HPF BACT) CBC with Vuwnmirtixig0546-60-71 14:21:00 Test Item Value Reference Range Interpretation [...] code = ALYMPH) 3.0 K/cumm 0.5-4.6 N [place] Abs (test code = AMONO) 0.5 K/cumm 0.0-1.2 N Eos Abs (test code = AEOS) 0.19 K/cumm 0.00-0.74 N Baso Abs (test code = ABASO) 0.1 K/cumm 0.00-0.21 N
--- NOTE | 2021-11-24 11:11 | ER ---
Nurse's Notes [facility] Name: Tiffany Quinn Age: 51 yrs Sex: Female : 1970 Arrival Date: 11/24/2021 Time: 10:02 Bed DX1 Private MD: Dayna Dominguez H Diagnosis: Headache Presentation: 11/24 10:28 Chief complaint: Patient states: pt states that she has a rivero that started last night [facility] with nausea. has been stressed after finding out that her mother . Coronavirus screen: Vaccine status: Patient reports receiving the 2nd dose of the covid vaccine. Ebola Screen: Patient negative for fever greater than or equal to 101.5 degrees Fahrenheit, and additional compatible Ebola Virus Disease symptoms. Initial Sepsis Screen: Does the patient meet any 2 criteria? No. Patient's initial sepsis screen is negative. Does the patient have a suspected source of infection? No. Patient's initial sepsis screen is negative. Risk Assessment: Do you want to hurt yourself or someone else? Patient reports no desire to harm self or others. Onset of symptoms was November 24, 2021. 10:28 Method Of Arrival: Ambulatory [facility] 10:28 Acuity: MANUEL 4 [facility] Triage Assessment: 10:31 Headache History: The patient has had previous headaches and this one is similar to [facility] previous episodes. General: Appears comfortable, unkempt, Behavior is cooperative, anxious. Pain: Pain currently is 9 out of 10 on a pain scale. Pain: Complains of pain in face Pain began 1 day ago. Also complains of nausea. Neuro: No deficits noted. Reports headache. Historical: - Allergies: 10:31 Pepcid; [facility] 10:31 Toradol; [facility] - PMHx: 10:31 ADD; Anxiety; Bipolar disorder; Migraine; [facility] - PSHx: 10:31 Cholecystectomy; hernia repair; [facility] - Immunization history:: Client reports receiving the 2nd dose of the Covid vaccine. - Social history:: Smoking status: Patient denies any tobacco usage or history of. Screenin:09 Abuse screen: Denies threats or abuse. Denies injuries from another. Nutritional ss screening: No deficits noted. Tuberculosis screening: Never had TB. Fall Risk None identified. Assessment: 11:59 General: Appears in no apparent distress. comfortable. Neuro: Level of Consciousness is ss awake, alert. Cardiovascular: Capillary refill < 3 seconds is brisk in bilateral fingers. Respiratory: Airway is patent Respiratory effort is even, unlabored, Respiratory pattern is regular, symmetrical. GI: Reports Intermittent nausea. EENT: Nares are clear Oral mucosa is moist. Throat is clear. Derm: Skin is intact, is healthy with good turgor, Skin is pink, warm \T\ dry. normal. Vital Signs: 10:28 BP 115 / 78; Pulse 96; Resp 18; Temp 98.4; Pulse Ox 100% ; Weight 71.67 kg; Height 5 ss ft. 2 in. (157.48 cm); Pain 9/10; 10:28 Body Mass Index 28.90 (71.67 kg, 157.48 cm) ED Course: 10:02 Patient arrived in ED. am2 10:02 Dayna Dominguez DO is Private Physician. am2 10:30 Bill Hay PA is PHCP. cp 10:30 aMnuel Ward MD is Attending Physician. cp 10:31 Triage completed. jh6 12:07 Preethi Melendez, JIGNA is Primary Nurse. ss 12:09 Patient has correct armband on for positive identification. Bed in low position. ss 12:09 No provider procedures requiring assistance completed. Patient did not have IV access ss during this emergency room visit. Administered Medications: 10:33 CANCELLED (Physician Discretion): Phenergan (promethazine) 25 mg PO once cp 12:07 Not Given (Pt left prior to recieving mediationn): Phenergan (promethazine) 25 mg PO ss once; may give if patient is not driving 12:08 Not Given (Pt left prior to recieving medicationn): Fioricet - Esgic 325 mg-40 mg-50 mg ss 1 tab-caps PO once Outcome: 11:11 Discharge ordered by . cp 12:09 Discharged to home ambulatory. ss 12:09 Condition: good 12:09 Discharge instructions given to patient, Instructed on discharge instructions, follow up and referral plans. medication usage, Demonstrated understanding of instructions, follow-up care, medications, Prescriptions given X 1. 12:11 Patient left the ED. Signatures: Preethi Melendez RN RN Bill Hay PA PA cp Moreno, Amanda am2 Kathy, Tiffany, RN RN jh6 Corrections: (The following items were deleted from the chart) 12:09 10:28 BP 115 / 78; Pulse 96bpm; Resp 100bpm; Pulse Ox 100%; Temp 98.4F; 71.67 kg; ss Height 5 ft. 2 in.; BMI: 28.9; Pain 9/10; jh6
--- NOTE | 2021-11-24 11:12 | EDPHYS ---
Physician Documentation [facility] Name: Tiffany Quinn Age: 51 yrs Sex: Female : 1970 Arrival Date: 11/24/2021 Time: 10:02 Bed DX1 Private MD: Dayna Dominguez H ED Physician Manuel Ward HPI: 11/24 10:33 This 51 yrs old Female presents to ER via Ambulatory with complaints of Headache, cp Nausea. 10:33 The patient complains of pain to the top of head and forehead. The patient describes cp the headache as aching. Onset: The symptoms/episode began/occurred today. Associated signs and symptoms: Pertinent positives: nausea. Historical: - Allergies: 10:31 Pepcid; jh6 10:31 Toradol; jh6 - PMHx: 10:31 ADD; Anxiety; Bipolar disorder; Migraine; jh6 - PSHx: 10:31 Cholecystectomy; hernia repair; jh6 - Immunization history:: Client reports receiving the 2nd dose of the Covid vaccine. - Social history:: Smoking status: Patient denies any tobacco usage or history of. ROS: 10:35 Constitutional: Negative for body aches, chills, fever, poor PO intake. cp 10:35 Eyes: Negative for injury, pain, redness, and discharge. cp 10:35 ENT: Negative for ear pain, sore throat, difficulty swallowing, difficulty handling secretions. 10:35 Cardiovascular: Negative for chest pain, palpitations. 10:35 Respiratory: Negative for cough, shortness of breath, wheezing. 10:35 Abdomen/GI: Positive for nausea, Negative for abdominal pain, vomiting, diarrhea, constipation. 10:35 Neuro: Positive for headache, Negative for altered mental status, numbness, syncope, weakness. 10:35 All other systems are negative. Exam: 10:40 Constitutional: The patient appears in no acute distress, alert, awake, non-toxic, well cp developed, well nourished. 10:40 Head/Face: Normocephalic, atraumatic. cp 10:40 Eyes: Periorbital structures: appear normal, Pupils: equal, round, and reactive to light and accomodation, Extraocular movements: intact throughout, Conjunctiva: normal, no exudate, no injection, Lids and lashes: appear normal, bilaterally. 10:40 ENT: External ear(s): are unremarkable, Nose: is normal, Mouth: Lips: moist, Oral mucosa: moist, Posterior pharynx: Airway: no evidence of obstruction, patent. 10:40 Neck: ROM/movement: is normal, is supple, without pain, no range of motions limitations. 10:40 Chest/axilla: Inspection: normal. 10:40 Cardiovascular: Rate: normal, Rhythm: regular. 10:40 Respiratory: the patient does not display signs of respiratory distress, Respirations: normal, no use of accessory muscles, no retractions, labored breathing, is not present, Breath sounds: are clear throughout, no decreased breath sounds, no stridor, no wheezing. 10:40 Abdomen/GI: Exam negative for discomfort, distension, guarding, Inspection: abdomen appears normal. 10:40 Neuro: Orientation: to person, place \T\ time. Mentation: is normal, Motor: moves all fours, strength is normal, Sensation: is normal, Gait: is steady. Vital Signs: 10:28 BP 115 / 78; Pulse 96; Resp 18; Temp 98.4; Pulse Ox 100% ; Weight 71.67 kg; Height 5 ss ft. 2 in. (157.48 cm); Pain 9/10; 10:28 Body Mass Index 28.90 (71.67 kg, 157.48 cm) ss MDM: 11:11 Patient medically screened. cp 11:11 Data reviewed: vital signs, nurses notes. cp 11:11 Differential diagnosis: cluster headache, migraine, sinusitis, tension headache. cp Counseling: I had a detailed discussion with the patient and/or guardian regarding: the historical points, exam findings, and any diagnostic results supporting the discharge/admit diagnosis, to return to the emergency department if symptoms worsen or persist or if there are any questions or concerns that arise at home. Administered Medications: 10:33 CANCELLED (Physician Discretion): Phenergan (promethazine) 25 mg PO once cp 12:07 Not Given (Pt left prior to recieving mediationn): Phenergan (promethazine) 25 mg PO ss once; may give if patient is not driving 12:08 Not Given (Pt left prior to recieving medicationn): Fioricet - Esgic 325 mg-40 mg-50 mg ss 1 tab-caps PO once Disposition: 16:58 Co-signature as Attending Physician, Manuel Ward MD I agree with the assessment and rn plan of care. Attestation: The patient's history, exam findings, diagnostics, and a summary of any interventions or procedures was reviewed in detail with Bill WHITTAKER. Disposition Summary: 11/24/21 11:11 Discharge Ordered Location: Home cp Problem: an ongoing problem cp Symptoms: have improved cp Condition: Stable cp Diagnosis - Headache cp Followup: cp - With: Private Physician - When: 1 - 2 days - Reason: Recheck today's complaints Discharge Instructions: - Discharge Summary Sheet cp - Migraine Headache cp Forms: - Medication Reconciliation Form cp - Thank You Letter cp - Antibiotic Education cp - Prescription Opioid Use cp Prescriptions: - promethazine 25 mg Oral Tablet - take 1 tablet by ORAL route every 6 hours As needed; 20 tablet; Refills: 0, cp Product Selection Permitted Signatures: Manuel Ward MD MD rn Page, Corey, PA PA cp Tiffany Chavez RN RN jh6 Preethi Melendez RN ss Corrections: (The following items were deleted from the chart) 10:33 10:32 Phenergan (promethazine) 25 mg PO once ordered. cp cp
[2021-11-24 12:40] VITALS: BP 115/78; TEMP 98.4; O2SAT 100
== END 2021-11-24 12:11 | disposition home or self-care (01) ==
LOC: ER 09:57
DX: R51.9 Headache, unspecified (principal); F41.9 Anxiety disorder, unspecified; F98.8 Other specified behavioral and emotional disorders with onset usually occurring in childhood and adolescence; F31.9 Bipolar disorder, unspecified; Z88.6 Allergy status to analgesic agent; Z88.8 Allergy status to other drugs, medicaments and biological substances; Z90.49 Acquired absence of other specified parts of digestive tract
CPT/HCPCS: 99282

== ENCOUNTER 2021-11-25 11:41 | Emergency (ER) | payer OTHER ==
--- OUTSIDE RECORDS SUMMARY | 2021-11-25 11:48 | XMS REPORT | Continuity of Care Document ---
:1970 Author Organization [facility] t Address [address] [place] [address] Care Team Providers Name Role Phone UNKNOWN [...] Number Effective Date Expiration Date S nasim [facility] - [id number] 2020 [employer] 00:00:00 (MEDICARE REPLACEMENT/ADVANT AGE - HMO) Problems Condition Condition Condition Status Onset Resolution Last Treating Co mments Source Name Details Category Date Date Treatment Clinician Date LOW PB Diagnosis Active 2019-01-22 Mem oria 01-21 01:52:00 l LOW PB 00:00: [place] 00 Active 01/21/2019 [facility] INFECTIOUS Diagnosis Active 2019-02-06 Memoria GASTROENTE -30 08:58:00 l RITIS AND 00:00: Yonis COLITIS INFECTIOUS 00 GASTROENTE RITIS AND COLITIS Active 01/21/2019 [facility] Irregular Irregular Disease Active Uni vers menstrual menstrual 8-15 ity of cycle cycle 00:00: [place] [address] Medical Branch Skin Skin Disease Active Univers lesion lesion 8-15 ity of 00:00: [place] [address] Medical Branch Psychiatri Psychiatri Disease Active U nivers c disorder c disorder 8-15 it y of 00:00: [place] [address] Medical Branch Well woman Well woman Disease Active U nivers exam with exam with 8-15 ity of routine routine 00:00: [place] gynecologi gynecologi 00 Tn dical nicky exam nicky exam Branch INFECTIOUS Diagnosis Active 2019-02-06 Memoria GASTROENTE 08:58:00 l RITIS AND [place] COLITIS, INFECTIOUS GASTROENTE RITIS AND COLITIS, Active [facility] Allergies, Adverse Reactions, Alerts Allergy Allergy Status Severity Reaction(s) Onset Inactive Treating Comm ents Source Name Type Date Date Clinician prometha DA Active [place] ANXIETY [facility] zine 1- Clear 00:00: [place] 00 [facility] prometha DA Active U [facility] zine 7-04 Clear 00:00: [place] 00 [facility] Phenerga Drug Active [facility] Toradol Drug Active [facility] Phenerga Drug Active [facility] Toradol Drug Active [facility] SEROquel Drug Active Moderate [facility] RisperDA Drug Active [facility] TEGretol Drug Active [facility] ZyPREXA Drug Active [facility] Toradol Drug Active [facility] Phenerga Drug Active [facility] Toradol Drug Active [facility] SEROquel Drug Active Moderate [facility] RisperDA Drug Active [facility] TEGretol Drug Active [facility] ZyPREXA Drug Active [facility] Toradol Drug Active [facility] Phenerga Drug Active [facility] Toradol Drug Active [facility] SEROquel Drug Active Moderate [facility] RisperDA Drug Active [facility] TEGretol Drug Active [facility] ZyPREXA Drug Active [facility] Toradol Drug Active [facility] Phenerga Drug Active [facility] Toradol Drug Active [facility] SEROquel Drug Active Moderate [facility] RisperDA Drug Active [facility] TEGretol Drug Active [facility] ZyPREXA Drug Active [facility] Toradol Drug Active [facility] Phenerga Drug Active [facility] Toradol Drug Active [facility] SEROquel Drug Active Moderate [facility] RisperDA Drug Active [facility] TEGretol Drug Active [facility] ZyPREXA Drug Active [facility] Phenerga Drug Active [facility] RisperDA Drug Active [facility] Toradol Drug Active [facility] Phenerga Drug Active [facility] Toradol Drug Active [facility] RisperDA Drug Active [facility] TEGretol Drug Active [facility] RisperDA Drug Active [facility] Toradol Drug Active [facility] Phenerga Drug Active [facility] Toradol Drug Active [facility] SEROquel Drug Active Moderate [facility] NO KNOWN Drug Active [facility] RisperDA Drug Active [facility] TEGretol Drug Active [facility] ZyPREXA Drug Active [facility] Toradol Drug Active [facility] Phenerga Drug Active [facility] Toradol Drug Active [facility] SEROquel Drug Active Moderate [facility] RisperDA Drug Active [facility] TEGretol Drug Active [facility] ZyPREXA Drug Active [facility] Toradol Drug Active [facility] Phenerga Drug Active [facility] Toradol Drug Active [facility] SEROquel Drug Active Moderate [facility] RisperDA Drug Active [facility] TEGretol Drug Active [facility] ZyPREXA Drug Active [facility] Phenerga Drug Active [facility] RisperDA Drug Active [facility] Phenerga Drug Active [facility] RisperDA Drug Active [facility] Toradol Drug Active [facility] Phenerga Drug Active [facility] Toradol Drug Active [facility] SEROquel Drug Active Moderate [facility] RisperDA Drug Active [facility] TEGretol Drug Active [facility] ZyPREXA Drug Active [facility] Toradol Drug Active [facility] Phenerga Drug Active [facility] Toradol Drug Active [facility] SEROquel Drug Active Moderate [facility] RisperDA Drug Active [facility] TEGretol Drug Active [facility] ZyPREXA Drug Active [facility] Toradol Drug Active [facility] Phenerga Drug Active [facility] Toradol Drug Active [facility] SEROquel Drug Active Moderate [facility] RisperDA Drug Active [facility] TEGretol Drug Active [facility] ZyPREXA Drug Active [facility] Toradol Drug Active [facility] Phenerga Drug Active [facility] Toradol Drug Active [facility] SEROquel Drug Active Moderate [facility] RisperDA Drug Active [facility] TEGretol Drug Active [facility] ZyPREXA Drug Active [facility] Toradol Drug Active [facility] Phenerga Drug Active [facility] Toradol Drug Active [facility] SEROquel Drug Active Moderate [facility] RisperDA Drug Active [facility] TEGretol Drug Active [facility] ZyPREXA Drug Active [facility] Toradol Drug Active [facility] Phenerga Drug Active [facility] Toradol Drug Active [facility] SEROquel Drug Active Moderate [facility] RisperDA Drug Active [facility] TEGretol Drug Active [facility] ZyPREXA Drug Active [facility] Toradol Drug Active [facility] Phenerga Drug Active [facility] Toradol Drug Active [facility] SEROquel Drug Active Moderate [facility] RisperDA Drug Active [facility] TEGretol Drug Active [facility] ZyPREXA Drug Active [facility] Toradol Drug Active [facility] Phenerga Drug Active [facility] Toradol Drug Active [facility] SEROquel Drug Active Moderate [facility] RisperDA Drug Active [facility] TEGretol Drug Active [facility] ZyPREXA Drug Active [facility] Toradol Drug Active [facility] Phenerga Drug Active [facility] Toradol Drug Active [facility] SEROquel Drug Active Moderate [facility] RisperDA Drug Active [facility] TEGretol Drug Active [facility] ZyPREXA Drug Active [facility] Phenerga Drug Active [facility] RisperDA Drug Active [facility] Toradol Drug Active [facility] Phenerga Drug Active [facility] Toradol Drug Active [facility] SEROquel Drug Active Moderate [facility] RisperDA Drug Active [facility] TEGretol Drug Active [facility] ZyPREXA Drug Active [facility] Toradol Drug Active [facility] Phenerga Drug Active [facility] Toradol Drug Active [facility] SEROquel Drug Active Moderate [facility] RisperDA Drug Active [facility] TEGretol Drug Active [facility] ZyPREXA Drug Active [facility] Toradol Drug Active [facility] Phenerga Drug Active [facility] Toradol Drug Active [facility] SEROquel Drug Active Moderate [facility] RisperDA Drug Active [facility] TEGretol Drug Active [facility] ZyPREXA Drug Active [facility] Toradol Drug Active [facility] Phenerga Drug Active [facility] Toradol Drug Active [facility] SEROquel Drug Active Moderate [facility] RisperDA Drug Active [facility] TEGretol Drug Active [facility] ZyPREXA Drug Active [facility] Toradol Drug Active [facility] Phenerga Drug Active [facility] Toradol Drug Active [facility] SEROquel Drug Active Moderate [facility] RisperDA Drug Active [facility] TEGretol Drug Active [facility] ZyPREXA Drug Active [facility] Toradol Drug Active [facility] Phenerga Drug Active [facility] Phenerga Phenerga Active [facility] Toradol Drug Active [facility] SEROquel Drug Active Moderate [facility] RisperDA Drug Active [facility] TEGretol Drug Active [facility] ZyPREXA Drug Active [facility] Toradol Drug Active [facility] Phenerga Drug Active [facility] Toradol Drug Active [facility] SEROquel Drug Active Moderate [facility] RisperDA Drug Active [facility] TEGretol Drug Active [facility] ZyPREXA Drug Active [facility] Phenerga Drug Active [facility] RisperDA Drug Active [facility] Social History Social Habit Start Date Stop Date Quantity Comments Source History of Cigarette Smoker [facility] ty of tobacco use [facility] Tobacco Comment 2-3 cigs a day Unive [facility] Exposure to Not sure [facility] SARS-CoV-2 [facility] (event) [place] Tobacco use and 2016-06-08 2016-06-08 Never used Universit y of exposure 00:00:00 00:00:00 [facility] Alcohol intake 2016-06-08 2016-06-08 0 /d University of 00:00:00 00:00:00 [facility] Sex Assigned At [birth year] [facility] y of 00:00:00 00:00:00 [facility] Smoking Status Start Date Stop Date Source Social History 2019-01-22 05:00:12 [facility] Current some day smoker 2016-06-08 00:00:00 [facility] Medications Ordered Filled Start Stop Current Ordering Indication Dosage Frequency Signature Comments Components Source Medication Medication Date Date Medication? Clinician (SIG) Name Name cefTRIAXone 2020-10- No 1000mg 1,000 mg, Univers (ROCEPHIN) 11-10 IV ity of 1,000 mg in 08:30: 08:01 [place], [place] NaCl 0.9% 00 :00 ONCE, 1 [...] Medical Infusion, Branch ONCE, 1 dose, On Tu09/09/21 at 2330, RANDA amoxicillin 2020-10 Yes [id number] 500mg Take 1 Univers 500 mg 11-10 capsule by ity of capsule 00:00: mouth 3 [place] 00 (three) Medical times Branch daily. ondansetron 2019-10 No 4mg 4 mg, [facility] ers (ZOFRAN-ODT 2-05 05- Oral, ity of ) 15:15: 14:16 ONCE, 1 [place] disintegrat 00 :00 dose, Mon Med ical ing tablet 09/30/20 at [facility] 4 mg 0915, Routine ondansetron 2019-10 No 4mg 4 mg, [facility] ers (ZOFRAN-ODT 2- 12-07 Oral, ity of ) 14:30: 13:32 ONCE, 1 [place] disintegrat 00 :00 dose, Mon Med ical ing tablet 09/30/20 at [facility] 4 mg 0830, Routine ondansetron 2019-10 Yes [id number] 4mg Take 1 Univers 4 mg 2-07 tablet by ity of disintegrat 00:00: mouth [place] ing tablet 00 every 8 Medica l (eight) Branch hours as needed for Nausea and Vomiting (N/V). ondansetron 2019-10 Yes [id number] 4mg Take 1 Univers 4 mg 2-07 tablet by ity of disintegrat 00:00: mouth [place] ing tablet 00 every 8 Medica l (eight) Branch hours as needed for Nausea and Vomiting (N/V). ondansetron 2019-10 Yes [id number] 4mg Take 1 Univers 4 mg 2-07 tablet by ity of disintegrat 00:00: mouth [place] ing tablet 00 every 8 Medica l (eight) Branch hours as needed for Nausea and Vomiting (N/V). ondansetron 2019-10 Yes [id number] 4mg Take 1 Univers 4 mg 2-07 tablet by ity of disintegrat 00:00: mouth [place] ing tablet 00 every 8 Medica l (eight) Branch hours as needed for Nausea and Vomiting (N/V). ciprofloxac 2019- Yes 500 mg = 1 Memoria in 500 mg 4-04 tab, PO, l oral tablet 17:35: [id number], X [place] 00 4 day, # 8 tab, 0 Refill(s) Ondansetron 2019- Yes 4 mg = 1 Me moria 4 MG Oral 4-04 tab, PO, l Tablet 17:35: Q6H, PRN [place] [Zofran] 00 Nausea/Vom iting, # 20 tab, [...] 4-04 tab, PO, l oral tablet 17:35: [id number], X Yonis 00 4 day, # 8 tab, 0 Refill(s) Ondansetron 2019- Yes 4 mg = 1 Me moria 4 MG Oral 4-04 tab, PO, l Tablet 17:35: Q6H, PRN [place] [Zofran] 00 Nausea/Vom iting, # 20 tab, [...] s with feeding tube less than 14 [place]ori (Dobhoff, J-tube etc) and pediatric and patients. Potassium No Notes: Memori a Chloride -03 [...] s with feeding tube less than 14 [place] (Dobhoff, J-tube etc) and pediatric and patients. Strattera 0 No 0.5 mg/kg, Me moria 4-02 Route: PO, l 14:00: QAM, [place] Dosing Weight 75, kg, Start date: 01/24/19 9:00:00 CDT, Duration: 30 day, Stop date: 02/22/19 9:00:00 CDT Strattera No 0.5 mg/kg, Me moria 4-02 Route: PO, l 14:00: QAM, [place] 00 Dosing Weight 75, kg, Start date: 01/24/19 9:00:00 CDT, Duration: 30 day, Stop date: 02/22/19 9:00:00 CDT lithium No Notes: Do Memor ia 4-02 not crush l 02:00: or chew. (Same as: Laverne Valentin) lithium No Notes: Do Memor ia 4-02 [...] ia 4- (Same As: l 18:00: KlonoPIN) Clonazepam No Notes: Memor ia 4- (Same As: l 18:00: KlonoPIN) [place] 00 Flagyl No Notes: Memoria 01-23 (Same as: l 15:00: Flagyl) [place] 00 Take with food/ avoid alcohol Cipro No Notes: May Memori a 01-23 interfere l 15:00: w/enteral [place] 00 feedings - Take 1 hr before or 2 hrs after antacids, dairy pdt & minerals. On empty stomach. Flagyl No Notes: Memoria 01-23 (Same as: l 15:00: Flagyl) [place] 00 Take with food/ avoid alcohol Cipro [...] PO, ONCE, l mEq oral 14:20: 0 [place] tablet, 00 Refill(s) extended release Metronidazo No 500 mg, Mem oria le 500 MG 4-01 PO, l Oral Tablet 14:20: [id number], 0 H [place] [Flagyl] 00 Refill(s) Ciprofloxac No 500 mg, Mem oria in 500 MG 4-01 PO, l Oral Tablet 14:20: [id number], 0 Yon[place] [Cipro] 00 Refill(s) potassium Yes 40 mEq, Memor ia chloride 20 4-01 PO, ONCE, l mEq oral 14:20: 0 Yon[place] tablet, 00 Refill(s) extended release Metronidazo No 500 mg, Mem oria le 500 MG 4-01 PO, l Oral Tablet 14:20: [id number], 0 H ermann [Flagyl] 00 Refill(s) Ciprofloxac No 500 mg, Mem oria in 500 MG - PO, l Oral Tablet 14:20: [id number], 0 [place] [Cipro] Refill(s) Potassium No Notes: Memori a Chloride [...] s with feeding tube less than 14 [place] (Dobhoff, J-tube etc) and pediatric and patients. [...] s with feeding tube less than 14 [place] (Dobhoff, J-tube etc) and pediatric and patients. [...] tab, PO, l Tablet 21:08: BID, 0 [place] [Risperdal] 00 Refill(s) Strattera Yes 0.5 mg/kg, [...] tab, PO, l Tablet 21:08: BID, 0 [place] [Risperdal] 00 Refill(s) Zosyn No Notes: Memoria [...] oria 3-31 to exceed l 15:03: 400mg/day. [place] 00 (Same As: Ultram) Tramadol No Notes: [...] day, Stop date: 02/21/19 4:47:00 CDT normal 2018-0 No 1,000 mL, Memori a saline 0.9% 01-22 Rate: 150 l IV 1,000 mL 09:48: ml/hr, Infuse over: 6.7 hr, Route: IV, Dosing Weight 75.994 kg, Total Volume: 1,000, Start date: 01/22/19 4:48:00 CDT, Duration: 30 day, Stop date: 02/21/19 4:47:00 CDT Ondansetron 2018-0 No Notes: Estrada doni 3-31 (Same as: l 09:47: Kurtis) [place] 00 MEDICATION WASTE Product Size: 4 mg [...] Syringe - 25 mL, l 09:47: Route: IVP, Drug Form: INJ, Dosing Weight 75.994, kg, PRN, PRN Blood Glucose Results, Start date: 01/22/19 4:47:00 CDT, Duration: 30 day, Stop date: 02/21/19 4:46:00 CDT Ondansetron 2018-0 No Notes: Estrada doni 3-31 (Same as: l 09:47: Kurtis) Yonis 00 MEDICATION WASTE Product Size: 4 mg Product Wasted: ___ mg Glucagon 2019-0 No 1 mg, Memoria 3- Route: IM, l 09:47: Drug form: [place] 00 PDR/INJ, PRN, Dosing Weight 75.994, kg, PRN Blood Glucose Results, Start date: 01/22/19 4:47:00 CDT, Duration: 30 day, Stop date: 02/21/19 4:46:00 CDT Dextrose 2019-0 No 12.5 gm, Memor ia 50% Syringe 3-31 25 mL, l 09:47: Route: [place] 00 IVP, Drug Form: INJ, Dosing Weight 75.994, kg, PRN, PRN Blood Glucose Results, Start date: 01/22/19 4:47:00 CDT, Duration: 30 day, Stop date: 02/21/19 4:46:00 CDT Zofran No Notes: Memoria 3-31 (Same as: l 08:56: Zofran) [place] 00 MEDICATION WASTE Product Size: 4 mg Product Wasted: ___ mg Zofran No Notes: Memoria 3-31 (Same as: l 08:56: Zofran) [place] 00 MEDICATION WASTE Product Size: 4 mg Product Wasted: ___ mg NS (Bolus) No 1,000 mL, Me moria IV 3-31 1,000 l 08:52: ml/hr, [place] 00 Infuse Over: 1 hr, Route: IV, 1,000, Drug form: INJ, ONCE, Priority: STAT, Dosing Weight 75.994 kg, Start date: 01/22/19 3:52:00 CDT, Stop date: 01/22/19 3:52:00 CDT NS (Bolus) No 1,000 mL, Me moria IV 3-31 1,000 l 08:52: ml/hr, [place] 00 Infuse Over: 1 hr, Route: IV, [...] Wasted: ___ mg Zosyn No Notes: Memoria 01-22 (Same as: l 06:10: Zosyn) Dosing based on Piperacill in component MEDICATION WASTE Product Size: 3375 mg Product Wasted: ___ mg NS (Bolus) No 1,000 mL, Me moria IV 01-22 1,000 l 05:44: ml/hr, [place] 00 Infuse Over: 1 hr, Route: IV, 1,000, Drug form: INJ, ONCE, Priority: STAT, Dosing Weight 75.994 kg, Start date: 01/22/19 0:44:00 CDT, Stop date: 01/22/19 0:44:00 CDT NS (Bolus) No 1,000 mL, Me moria IV 01-22 1,000 l 05:44: ml/hr, [place] 00 Infuse Over: 1 hr, Route: IV, 1,000, Drug form: INJ, ONCE, Priority: STAT, Dosing Weight 75.994 kg, Start date: 01/22/19 0:44:00 CDT, Stop date: 01/22/19 0:44:00 CDT Zofran No Notes: Memoria 01-22 (Same as: l 04:52: Zofran) MEDICATION WASTE Product Size: 4 mg Product Wasted: ___ mg Saline No Notes: Memoria Flush 0.9% 01-22 Same as: l 04:52: BD [place] 00 Posiflush Sterile Zofran No Notes: Memoria 3- (Same as: l 04:52: Zofran) MEDICATION WASTE Product Size: 4 mg Product Wasted: ___ mg Saline No Notes: Memoria Flush 0.9% - Same as: l 04:52: BD [place] 00 Posiflush Sterile NS (Bolus) No 1,000 mL, Me moria IV 01-22 1,000 l 04:51: ml/hr, [place] 00 Infuse Over: 1 hr, Route: IV, 1,000, Drug form: INJ, ONCE, Priority: STAT, Dosing Weight 75.994 kg, Start date: 01/21/19 23:51:00 CDT, Stop date: 01/21/19 23:51:00 CDT NS (Bolus) 2019-0 No 1,000 mL, Me moria IV 3-31 1,000 l 04:51: ml/hr, [place] 00 Infuse Over: 1 hr, Route: IV, [...] (KLONOPIN 8-15 mouth. ity of ORAL) 19:02: [place] 27 Medical Branch CITALOPRAM 2015-0 Yes Take by Uni vers HYDROBROMID 8-15 mouth. ity of E 19:02: [place] (CITALOPRAM 27 Medical ORAL) Branch ibuprofen 2016-0 Yes 200mg Take 200 Uni vers (ADVIL) 200 8-15 mg by ity of mg tablet 14:02: mouth [place] [address] every 6 Medical (six) Branch hours as needed. CLONAZEPAM 2016-0 Yes Take by Uni vers (KLONOPIN 8-15 mouth. ity of ORAL) 14:02: [place] [address] Medical Branch CITALOPRAM 2016-0 Yes Take by Uni vers HYDROBROMID 8-15 mouth. ity of E 14:02: [place] (CITALOPRAM 27 Medical ORAL) Branch ibuprofen 2016-0 Yes 200mg Take 200 Uni vers (ADVIL) 200 8-15 mg by ity of mg tablet 14:02: mouth [place] [address] every 6 Medical (six) Branch hours as needed. CLONAZEPAM 2016-0 Yes Take by Uni vers (KLONOPIN 8-15 mouth. ity of ORAL) 14:02: [place] [address] Medical Branch CITALOPRAM 2016-0 Yes Take by Uni vers HYDROBROMID 8-15 mouth. ity of E 14:02: [place] (CITALOPRAM 27 Medical ORAL) Branch ibuprofen 2016-0 Yes 200mg Take 200 Uni vers (ADVIL) 200 8-15 mg by ity of mg tablet 14:02: mouth [place] [address] every 6 Medical (six) Branch hours as needed. CLONAZEPAM 2016-0 Yes Take by Uni vers (KLONOPIN 8-15 mouth. ity of ORAL) 14:02: [place] [address] Medical Branch CITALOPRAM 2016-0 Yes Take by [...] one tab the morning of procedure butalbital- 2015- Yes TK 1 TO 2 U nivers acetaminoph 8-01 T PO Q 8 H it y of en-caff 00:00: PRN. [place] (ESGIC) 00 Medical 50-325-40 Branch mg tablet butalbital- Yes TK 1 TO 2 U nivers acetaminoph 8-01 T PO Q 8 H it y of en-caff 00:00: PRN. [place] (ESGIC) 00 Medical 50-325-40 Branch mg tablet butalbital- 0 Yes TK 1 TO 2 U nivers [...] ity of etamine 00:00: [place] (ADDERALL) Medical 20 mg Branch tablet dextroamphe Yes TK 1 T PO U nivers tamine-amph 7-20 BID. ity of etamine 00:00: [place] (ADDERALL) Medical 20 mg Branch tablet dextroamphe Yes TK 1 T PO U nivers tamine-amph 7-20 BID. ity of etamine 00:00: [place] (ADDERALL) Medical 20 mg Branch tablet dextroamphe Yes [...] Branch needed for Pain (scale 4-6). naproxen 2015- Yes 500mg Take 1 Tab Un parul (NAPROSYN) 1-16 by mouth 2 ity of 500 mg 00:00: (two) [place] tablet 00 times Medical daily with Branch meals. Vital Signs Vital Name Observation Time Observation Value Comments Source Height/Length 2020-03-04 16:13:54 Measured Systolic blood 2021-09-10 08:01:00 138 mm[Hg] Univer sity of pressure [facility] Diastolic blood 2021-09-10 08:01:00 97 mm[Hg] Unive rsity of [facility] Heart rate 2021-09-10 08:01:00 87 /min Universi ty of [facility] Respiratory rate 2021-09-10 08:01:00 20 /[facility] saturation in 2021-09-10 08:01:00 98 /min University of Arterial blood by [place] [employer] Pulse oximetry Branch Body temperature 2021-09-10 04:28:51 37.17 Ruthann [facility] ersity [facility] [place] [facility] Body height 2021-09-10 04:26:00 154.9 cm Universi ty [facility] [place] [facility] Body weight 2021-09-10 04:26:00 81.647 kg Universi ty [facility] [place] [facility] BMI 2021-09-10 04:26:00 34.01 kg/m2 Universi ty [facility] Systolic blood 2021-09-09 20:06:00 150 mm[Hg] Univer sity of [facility] Diastolic blood 2021-09-09 20:06:00 89 mm[Hg] Unive rsity of [facility] Heart rate 2021-09-09 20:06:00 108 /min Universi ty [facility] Body temperature 2021-09-09 20:06:00 37.22 Ruthann Univ ersity of [facility] Respiratory rate 2021-09-09 20:06:00 18 /min Univ ersity [facility] Oxygen saturation in 2021-09-09 20:06:00 99 /min University of Arterial blood by [employer] nicky Pulse oximetry Branch Body weight 2021-09-09 20:05:00 81.647 kg Universi ty [facility] BMI 2021-09-09 20:05:00 32.40 kg/m2 Universi ty [...] University of Arterial blood by [facility] Pulse oximetry Branch Body temperature 2020-09-30 13:26:00 [...] University of Arterial blood by [facility] Pulse oximetry Branch Body temperature 2020-09-30 13:26:00 37.22 Ruthann Univ [facility] Respiratory rate 2020-09-30 13:26:00 16 /min [facility] Body weight 2020-09-30 13:26:00 72.576 kg [facility] BMI 2020-09-30 13:26:00 28.80 kg/m2 [facility] Height/Length 2021-11-11 11:41:17 157.48 cm [...] Oral (F) 2019-01-28 01:16:00 98.6 F [facility] Systolic (mm Hg) 2019-01-28 01:16:00 Estrada rial Yonis Diastolic (mm Hg) 2019-01-28 01:16:00 [facility] Heart Rate 2019-01-28 01:16:00 [facility] Respitory Rate 2019-01-28 01:16:00 [facility] Systolic (mm Hg) 2019-01-27 20:42:00 [facility] Diastolic (mm Hg) 2019-01-27 20:42:00 [facility] Heart Rate 2019-01-27 20:42:00 [facility] Respitory Rate 2019-01-27 20:42:00 Memori al Y[facility] Temperature Oral (F) 2019-01-27 20:42:00 98.5 F [facility] Systolic (mm Hg) 2019-01-27 17:00:00 Estrada rial Yonis Diastolic (mm Hg) 2019-01-27 17:00:00 Mem o[facility] Temperature Oral (F) 2019-01-27 17:00:00 98.5 F [facility] Heart Rate 2019-01-27 17:00:00 [facility] Respitory Rate 2019-01-27 17:00:00 Memori [facility] Height 2019-01-22 14:35:00 157.48 cm [facility] BMI Calculated 2019-01-22 14:35:00 [facility] Weight 2019-01-22 14:35:00 [facility] Weight 2019-01-22 04:34:00 [facility] Procedures Procedure Date / Time Performing Clinician Source Performed URINALYSIS 2021-09-10 06:03:00 Neena Bradford [facility] URINE DRUG (IMMUNOASSAY) 2021-09-10 06:03:00 Neena Bradford [facility] SCREEN W/O REFLEX XR CHEST 1 VW 2021-09-10 04:57:30 Neena Bradford [facility] CREATINE KINASE 2021-09-10 04:39:00 Neena Bradford [facility] MAGNESIUM 2021-09-10 04:39:00 Neena Bradford [facility] TROPONIN I 2021-09-10 04:39:00 Neena Bradford [facility] COMP. METABOLIC PANEL 2021-09-10 04:39:00 Neena Bradford [facility] ([id number]) [facility] CBC WITH DIFF 2021-09-10 04:39:00 Neena Bradford [facility] PROTHROMBIN TIME / INR 2021-09-10 04:39:00 Neena Bradford [facility] ACTIVATED PARTIAL 2021-09-10 04:39:00 Neena [facility] PRO-BNP 2021-09-10 04:39:00 Neena Bradford [facility] COVID-19 (ID NOW RAPID 2021-09-10 04:39:00 Neena Bradford [facility] TESTING) [facility] TROPONIN I 2021-09-09 21:49:00 Luanne Dumont [facility] COMP. METABOLIC PANEL 2021-09-09 21:49:00 Luanne Dumont [facility] ([id number]) Medical Branch LITHIUM 2021-09-09 21:49:00 Luanne Dumont [facility] CBC WITH DIFF 2021-09-09 21:49:00 Luanne Dumont [facility] CONSENT/REFUSAL FOR 2021-09-09 19:51:22 Doctor Unassigned, No Un [facility] DIAGNOSIS AND TREATMENT Name [facility] [place] URINALYSIS 2020-09-30 13:27:00 Chuy Jackson [facility] ADC,CLC OR LCC ONLY - 2020-09-30 13:27:00 Chuy Jackson [facility] INFLUENZA A & B DIRECT Medical [facility] ANTIGEN COVID-19 (ID NOW RAPID 2020-09-30 13:27:00 Chuy Jackson [facility] TESTING) Medical Branch Encounters Start End Encounter Admission Attending Care Care Encounter Source Date/Time Date/Time Type Type Clinicians Facility Department ID 2020-03-04 Inpatient ChenteJohnnie southRonni [facility] PSY [id number] 15:38:00 Ronni Eldridge -[id number] [facility] 2019-01-22 Inpatient E [facility]W MED 7500 M[facility] W 04:39:00 2021-10-25 2021-10-25 Emergency EM OLIVER Reynaga [id number] [facility] 01:01:00 01:57:00 Lulú [id number] [facility] 2021-09-09 2021-09-10 Emergency Sanchez [facility] [id number] Univers 22:20:00 03:02:00 Neena WALSH 350.1.13.10 i ty of [place] 4.2.7.2.686 [facility] [id number] [address] 2021-09-09 2021-09-10 Emergency [facility] [id number] Univers 22:20:00 03:02:00 NEENA tubbs [facility] 2021-09-09 2021-09-10 Emergency [facility] [id number] Univers 22:20:00 03:02:00 NEENA tubbs [facility] 2021-09-09 2021-09-09 Emergency Julia [facility] [id number] Univers 14:07:00 17:35:00 Luanne WALSH 350.1.13.10 i ty of [place] 4.2.7.2.686 [facility] [id number] [address] 2021-09-09 2021-09-09 Orders Doctor RIZVI [id number] Univers 00:00:00 00:00:00 Only Unassigned, LANA 350.1.13.10 ity of [facility] 4.2.7.2.686 Joe [id number] [facility] 009 Branch 2020-09-30 2020-09-30 Emergency [facility] [id number] 07:22:00 08:18:00 Chuy Walsh 350.1.13.10 [place] 4.2.7.2.686 [place] [id number] 2020-09-30 2020-09-30 Emergency [facility] [id number] Univers 07:22:00 08:18:00 Chuy Walsh 350.1.13.10 i ty of [place] 4.2.7.2.686 [facility] [id number] [facility] 08 Branch 2020-09-30 2020-09-30 Emergency X [facility] ERT [id number] Univers 07:22:00 07:22:00 CHUY tubbs [facility] 2020-04-05 2020-04-05 Outpatient Humaira-Mbayo VFP VFP [id number] [facility] 05:44:00 05:44:00 _A_AH 16065 Family Practic e 2020-04-05 2020-04-05 Outpatient Humaira-Mbayo VFP VFP [id number] [facility] 05:44:00 05:44:00 _A_AH 64217 Family Practic e 2020-04-05 2020-04-05 Outpatient Humaira-Mbayo VFP VFP [id number] [facility] 05:44:00 05:44:00 _A_AH 49799 Family Practic e 2020-04-05 2020-04-05 Outpatient Humaira-Mbayo VFP VFP [id number] [facility] 05:44:00 05:44:00 _A_AH 01269 Family Practic e 2020-03-04 2020-03-14 Inpatient 3 Ronni Eldridge [facility] PSY [id number] 15:38:00 15:25:00 Ronni Eldridge [facility] 2019-12-13 2019-12-13 Outpatient Humaira-Mbayo VFP VFP [id number] [facility] 07:22:00 07:22:00 _A_AH 38062 Family Practic e 2019-01-22 2019-01-28 Inpatient [facility] [id number] Memoria 04:33:00 04:40:00 martin Somers 00 l [facility] 2018-02-21 2018-02-20 Inpatient E [facility] [id number] 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 BASIC METABOLIC [id number] 01:47:00 Test Item Value Reference Range Interpretation [...] code = POCGLU) 110 MG/DL UA DIPSTICK [id number] 01:32:00 Test Item Value Reference Range Interpretation Comments UA GLUCOSE DIPSTIC POC NEGATIVE NEGATIVE (test code = GLUUP) UA BILIRUBIN DIPSTICK NEGATIVE NEGATIVE (test code = BILU) UA KETONE DIPSTICK POC 1+ NEGATIVE A (test code = KETUP) UA SPECIFIC GRAVITY (test 1.030 1.005-1.030 N code = SGU) UA BLOOD DIPSTIC POC NEGATIVE NEGATIVE Perform ed by (test code = BLUP) certified wafer fab operator at [facility] UA PH DIPSTIC POC (test 5 5.0-7.0 N code = PHUP) UA PROTEIN DIPSTICK POC NEGATIVE NEGATIVE (test code = DPROUP) UA UROBILINIOGEN QUAL NORMAL 0.2-1.0 (test code = UROQL) UA NITRITE DIPSTICK POC NEGATIVE Negative (test code = NITUP) UA LEUKOCYTE ESTERASE W 2+ NEGATIVE A REFLEX (test code = LEUUR) TROPONIN [id number] 05:26:53 Test Item Value Reference Interpretation Comments Range TROPONIN I (test 0.003 ng/mL See_Comment [Automated code = 9250427302) message] The system which generated this result [...] biotin. Lab Interpretation Normal (test code = 35517-3) [id number] 05:24:16 Test Item Value Reference Range Interpretation Comments NT-proBNP (test code 35 pg/mL See_Comment [Autom ated = 2216547346) message] The system which generated this result transmitted reference range : <=125. The reference range was not used to interpret this result as normal/abnormal . PERRY (test code = PERRY) Biotin has been reported to cause a negative bias, interpret results relative to patient's use of biotin. Lab Interpretation Normal (test code = 98480-6) [facility] 05:16:51 Test Item Value Reference Range Interpretation Comments MAGNESIUM (test code = 2005263720) 1.8 mg/dL 1.7-2.4 Lab Interpretation (test code = Normal 74583-9) [facility]OLIC PANEL (01509)2021-09-10 05:16:31 Test Item Value Reference Range Interpretation Comments NA (test code = 139 mmol/L 135-145 8507276932) K (test code = 4.0 mmol/L 3.5-5.0 3687811640) CL (test code = 108 mmol/L 98-108 1682971842) CO2 TOTAL (test code 25 mmol/L 23-31 = 6181006394) AGAP (test code = 2-16 4436731379) BUN (test code = 14 mg/dL 7-23 7312080744) GLUCOSE (test code = 88 mg/dL 70-110 1011164843) CREATININE (test code 0.89 mg/dL 0.50-1.04 = 1679933496) TOTAL BILI (test code 0.5 mg/dL 0.1-1.1 = 9738772325) CALCIUM (test code = 10.3 mg/dL 8.6-10.6 3393133509) T PROTEIN (test code 6.9 g/dL 6.3-8.2 = 3488221491) ALBUMIN (test code = 4.3 g/dL 3.5-5.0 4648512222) ALK PHOS (test code = 72 U/L 34-122 6706890971) ALTv (test code = 17 U/L 5-35 1742-6) AST(SGOT) (test code 29 U/L 13-40 = 7973336388) eGFR (test code = mL/min/1.73m2 2417414613) PERRY (test code = PERRY) Association of [...] urine or abnormalities in imaging tests). [facility] [id number] 05:16:16 Test Item Value Reference Range Interpretation Comments CK (test code = 4592731198) 267 U/L 33-194 H Lab Interpretation (test code = Abnormal 09685-7) [facility] PARTIAL THRMPLAS [id number] 05:05:32 Test Item Value Reference Range Interpretation [...] seconds. Lab Interpretation Normal (test code = 45494-0) [facility] / [id number] 05:03:30 Test Item Value Reference Range Interpretation [...] tions. Lab Interpretation (test Normal code = 09463-3) [facility] WITH [id number] 04:57:13 Test Item Value Reference Range Interpretation Comments WBC (test code = See_Comment [Automated 6690-2) message] The sy stem which generated this result transmitted reference range : 4.30 - 11.10 10*3/?L. The reference range was not used to interpret this result as normal/abnormal . RBC (test code = See_Comment [Automated 149-8) message] The sy stem which generated this [...] RDW-SD (test code = 41.2 fL 39.0-49.9 87546-8) RDW-CV (test code = 13.0 % 12.0-15.5 788-0) PLT (test code = See_Comment H [Automated 777-3) message] The sy stem which generated this result transmitted reference range : 166 - 358 10*3/ ?L. The reference r katie was not used to interpret this result as normal/abnormal . MPV (test code = 9.6 fL 9.5-12.9 15885-2) NRBC/100 WBC (test See_Comment [Automat ed code = 9244117319) message] The system which generated this result transmitted reference range : 0.0 - 10.0 /100 WBCs. The refer ence range was not u sed to interpret th is result as normal/abnormal . NRBC x10^3 (test code <0.01 See_Comment [Auto mated = 4852271063) message] The s ystem which generated this result transmitted reference range : 10*3/?L. The reference range was not used to interpret this result as normal/abnormal . GRAN MAT (NEUT) % 61.9 % (test code = 770-8) IMM GRAN % (test code 0.30 % = 1584603310) LYMPH % (test code = 26.0 % 736-9) MONO % (test code = 9.5 % 5905-5) EOS % (test code = 1.6 % 713-8) BASO % (test code = 0.7 % 706-2) GRAN MAT x10^3(ANC) 5.91 10*3/uL 1.88-7.09 (test code = 2103311054) IMM GRAN x10^3 (test 0.03 10*3/uL 0.00-0.06 code = 0947161161) LYMPH x10^3 (test code 2.48 10*3/uL 1.32-3.29 = 731-0) MONO x10^3 (test code 0.91 10*3/uL 0.33-0.92 = 742-7) EOS x10^3 (test code = 0.15 10*3/uL 0.03-0.39 711-2) BASO x10^3 (test code 0.07 10*3/uL 0.01-0.07 = 704-7) Lab Interpretation Abnormal (test code = 70985-2) [facility] [id number] 22:24:55 Test Item Value Reference Interpretation Comments Range TROPONIN I (test 0.002 ng/mL See_Comment [Automated code = 4140876912) message] The system which generated this result [...] biotin. Lab Interpretation Normal (test code = 17465-7) [facility] 22:24:34 Test Item Value Reference Range Interpretation Comments [place] (test code = <0.2 0.6-1.2 L 2292393955) PERRY (test code = PERRY) Toxic Range: ? Greater than 1.2 mmol/L Lab Interpretation (test Abnormal code = 77815-0) [facility]. METABOLIC PANEL (77172)2021-09-09 22:13:54 Test Item Value Reference Range Interpretation Comments NA (test code = 139 mmol/L 135-145 8100195438) K (test code = 4.0 mmol/L 3.5-5.0 5951341998) CL (test code = 105 mmol/L 98-108 2581331631) CO2 TOTAL (test code 26 mmol/L 23-31 = 7358334860) AGAP (test code = 2-16 2174921130) BUN (test code = 11 mg/dL 7-23 3465718581) GLUCOSE (test code = 109 mg/dL 70-110 5690075182) CREATININE (test code 0.71 mg/dL 0.50-1.04 = 2501116521) TOTAL BILI (test code 0.6 mg/dL 0.1-1.1 = 3135009323) CALCIUM (test code = 10.4 mg/dL 8.6-10.6 4680833865) T PROTEIN (test code 7.6 g/dL 6.3-8.2 = 2064176123) ALBUMIN (test code = 4.7 g/dL 3.5-5.0 4503201970) ALK PHOS (test code = 78 U/L 34-122 2018706065) ALTv (test code = 19 U/L 5-35 1742-6) AST(SGOT) (test code 28 U/L 13-40 = 6415066871) eGFR (test code = mL/min/1.73m2 1070419228) PERRY (test code = PERRY) Association of [...] imaging tests). [facility] WITH [id number] 22:03:32 Test Item Value Reference Range Interpretation [...] RDW-SD (test code = 40.2 fL 39.0-49.9 90698-5) RDW-CV (test code = 12.9 % 12.0-15.5 788-0) PLT (test code = See_Comment H [Automated 777-3) message] The sy stem which generated this result transmitted reference range : 166 - 358 10*3/ ?L. The reference r katie was not used to interpret this result as normal/abnormal . MPV (test code = 9.4 fL 9.5-12.9 L 70199-5) NRBC/100 WBC (test See_Comment [Automat ed code = 7550306791) message] The system which generated this result transmitted reference range : 0.0 - 10.0 /100 WBCs. The refer ence range was not u sed to interpret th is result as normal/abnormal . NRBC x10^3 (test code <0.01 See_Comment [Auto mated = 3723683939) message] The s ystem which generated this result transmitted reference range : 10*3/?L. The reference range was not used to interpret this result as normal/abnormal . GRAN MAT (NEUT) % 67.1 % (test code = 770-8) IMM GRAN % (test code 1.00 % = 4582235508) LYMPH % (test code = 21.4 % 736-9) MONO % (test code = 7.9 % 5905-5) EOS % (test code = 1.8 % 713-8) BASO % (test code = 0.8 % 706-2) GRAN MAT x10^3(ANC) 7.35 10*3/uL 1.88-7.09 H (test code = 5022023489) IMM GRAN x10^3 (test 0.11 10*3/uL 0.00-0.06 H code = 8200294968) LYMPH x10^3 (test code 2.34 10*3/uL 1.32-3.29 = 731-0) MONO x10^3 (test code 0.86 10*3/uL 0.33-0.92 = 742-7) EOS x10^3 (test code = 0.20 10*3/uL 0.03-0.39 711-2) BASO x10^3 (test code 0.09 10*3/uL 0.01-0.07 H = 704-7) Lab Interpretation Abnormal (test code = 09485-8) [facility] - INFLUENZA A & B DIRECT [id number] 14:04:00 Test Item Value Reference Range Interpretation Comments Influenza A (test code = 41119-5) Negative Negative Influenza B (test code = 05593-8) Negative Negative Lab Interpretation (test code = Normal 06326-6) [facility] (ID NOW RAPID TESTING)2020-09-30 14:03:00 Test Item Value Reference Range Interpretation Comments SARS-CoV-2 Rapid ID NOW Not Detected Not Detected (test code = 85251-9) PERRY (test code = PERRY) ID NOW COVID-19 Assay is an isothermal nucleic acid amplification test intended for the qualitative detection of nucleic acid from SARS-CoV-2 viral RNA in nasopharyngeal (CASH APPLICATION CLERK) specimens. It is used under Emergency Use [...] indicated. Lab Interpretation Normal (test code = 32401-3) [facility]2020-[facility] 13:55:00 Test Item Value Reference Range Interpretation Comments APPEARANCE (test code = Hazy Clear A 7400866462) COLOR (test code = Yellow Yellow 8702677041) PH (test code = 4.8-8.0 6798669750) SP GRAVITY (test code = 1.003-1.030 3762342851) GLU U QUAL (test code = Normal Normal 9454245148) BLOOD (test code = Negative Negative 0478336323) KETONES (test code = 5 mg/dL Negative A 1557558655) PROTEIN (test code = Negative Negative 2887-8) UROBILIN (test code = 2.0 mg/dL Normal A 5255766437) BILIRUBIN (test code = Negative Negative 1800245708) NITRITE (test code = Negative Negative 5659386155) LEUK ROZINA (test code = 25/uL Negative A 9279766852) RBC/HPF (test code = See_Comment [Autom ated message] 4368926004) The system A.P Avanashiappa Silk generated this result transmit ngozi reference range : 0 - 3 HPF. The refe rence range was not u sed to interpret th is result as normal/abnormal . WBC/HPF (test code = See_Comment [Autom ated message] 1248058191) The system A.P Avanashiappa Silk generated this result transmit ngozi reference range : 0 - 5 HPF. The refe rence range was not u sed to interpret th is result as normal/abnormal . BACTERIA (test code = Few Negative A 1388671513) MUCOUS (test code = Slight Negative LPF A 3581199106) SQ EPITH (test code = HPF 9829158858) Lab Interpretation (test Abnormal code = 96767-9) [facility] Wrnfhklxqol6348-31-48 16:42:24 Test Item Value Reference Range Interpretation [...] = 10-24-2020 N Expiration Dt) Thyroid Stimulating Nnwbmqa0480-55-82 08:35:16 Test Item Value Reference Range Interpretation Comments TSH (test code = TSH) 1.170 mIU/mL 0.270-4.200 Lipid Xbaqe8450-80-33 08:21:19 Test Item Value Reference Range Interpretation Comments Cholesterol Total 254 mg/dL 0-200 H RISK OF HE ART (test code = DISEASEPublishe d by Cholesterol Total) [employer] Cathie lyte Optimal Borderl ine [...] calculation is LDL/HDL Ratio=L DL Calc/HDL Chol WPWTCUTZZMEZ6589-98-64 08:24:008.6[facility] LjavauiUMLJZLDCDUPG3825-51-77 08:24:17415Fdanidrt KhwfrjgNSOPHRUIQQEB2545-04-56 08:24:0027[facility] OTBLTBKOLXKF6243-45-95 08:24:06251Guoqlypb PofzithVJASJJOEZCWO5567-50-35 08:24:003.6[facility] YpixkghSWOEPNCDTHCC7854-47-06 08:24:000.70[facility] NHYAKHPVFTDL0867-87-55 08:24:008.4[facility] KfawmcyDMLFFLVWDVZZ4604-60-09 08:24:07347Swmrkuot MaypgbfJJIAUJBVRQJE2811-99-50 08:24:0086[facility] YDMXDRXPNMYO9715-11-43 08:24:006[facility] KypkmggROHRXXZRPK9247-21-65 08:24:00 11.6[facility] EztdbaxFUORUFERYL9089-34-43 08:24:003.78[facility]annHEMATOLOGY 2019-01-26 08:24:0013.3[facility] CixxcioNNRJFUHJZJ8881-15-20 08:24:0034.0[facility] ZcpmnspEUQRXVSMFV6558-11-70 08:24:006.3[facility] DdzgsazBVUQZHHHSU4830-59-00 08:24:00 Test Item Value Reference Range Interpretation Comments MCH (test code = MCH) 30.7 pg 27.0-31.0 [facility] DnbhhnaLRCRILDYSG1155-74-33 08:24:0090.3[facility] HermannHEMATOLOGY 2019-01-26 08:24:0034.2[facility] EcubtnhKNPLORQLUP3261-07-62 08:24:70706Uwjrecul MxpxhttEQXRDLJMTC2508-22-18 08:24:007.5[facility] NfvooomZJVMSMYWZZBO4330-53-54 08:24:008.6[facility] StqfbafGRVDOCPFTMOX6632-07-17 08:24:07684J[facility]uzlbxo [facility] QZQVNPADXOWI7937-60-82 08:24:0027[facility] BlzerzaXOYVSZQZXIWS4457-93-27 08:24:00 139[facility] ZpbbdztCCQPHSHZZQJI5651-06-66 08:24:003.6[facility] BTVLHYZXLQAK7944-22-84 08:24:000.70[facility] GwpoewnXUGIGZEVOYGO8126-62-37 08:24:008.4[facility] KlexqtiLEVTOHVBXXTE8546-65-14 08:24:61407Gcsfpmik Yonis OYOUMXMTKGYY5851-99-67 08:24:0086[facility] IhytfcbLNOBWSQMMDJO1667-71-18 08:24:00 6[facility] WcpdqovEEQJPIUXJU1758-52-06 08:24:0011.6[facility] HermannHEMATOLOGY 2019-01-26 08:24:003.78[facility] IijgbhhAWMAAUUKLH8542-86-46 08:24:0013.3[facility] XvcnxzpMXUGPJOKWK6886-91-35 08:24:0034.0[facility] WfthvopGPYMPPIRYM2178-07-64 08:24:006.3[facility] YqntnweUZLROSROLF0566-57-52 08:24:00 Test Item Value Reference Range Interpretation Comments MCH (test code = MCH) 30.7 pg 27.0-31.0 Memorial DxpdysmXWVCLIVOCM1216-91-88 08:24:0090.3[facility] HermannHEMATOLOGY 2019-01-26 08:24:0034.2[facility] QaefbiaYIRKDYRTWH2544-61-28 08:24:27627Oqltvepr CbklczhKCXESFMHMF5823-69-17 08:24:007.5[facility] HermannCHEM UWEDR1506-79-28 09:14:46162Lznhckjm HermannCHEM JTQWK7544-57-55 09:14:008.5[facility] HermannCHEM JYSUL2623-31-04 09:14:0013.3[facility] HermannCHEM QVCFG0324-56-98 09:14:0024 [facility] HermannCHEM DOYZV9378-16-98 09:14:42148Hiuzmunq HermannCHEM PANEL 2019-01-25 09:14:0081[facility] HermannCHEM DOFEA7938-31-63 09:14:002[facility] HermannCHEM NAFMC0518-75-81 09:14:003.3[facility] HermannCHEM BSKNZ4087-79-51 09:14:000.60[facility] HermannCHEM WQIAD2270-27-34 09:14:91668Jgfiiwag HermannCHEM FRVDH5159-34-65 09:14:80702Dbsglgri HermannCHEM UWYXE1646-16-18 09:14:008.5 [facility] HermannCHEM XQCUC6337-38-44 09:14:0013.3[facility] HermannCHEM PANEL 2019-01-25 09:14:0024[facility] HermannCHEM MDJGN4826-98-62 09:14:21586Lqfyutcx HermannCHEM GHHFW6578-33-66 09:14:0081[facility] HermannCHEM FUBUI5051-54-85 09:14:002[facility] HermannCHEM TXSLB7253-60-57 09:14:003.3[facility] HermannCHEM VZNJX0636-18-40 09:14:000.60[facility]annCHEM QBVZQ6051-41-31 09:14:82145 [facility]annMOLECULAR HFRGOUROMZ4317-84-64 16:22:00Negative (01/23/19 11:22 AM)[facility] HermannMOLECULAR MVQOPSXDGG7476-63-49 16:22:00Negative (01/23/19 11:22 AM)[facility]annCHEM AENEL6408-54-96 15:42:002.76[facility] HermannCHEM PANEL 2019-01-23 15:42:002.76[facility] HermannCHEM SZMPZ9831-85-39 12:32:000.9[facility] HermannCHEM KCYZY3614-98-70 12:32:000.9[facility] HermannCHEM OHYKM5477-71-57 10:50:002.0[facility] HermannCHEM FLWLI1062-15-52 10:50:14544Wcskkhpw HermannCHEM OIHKO8517-91-97 10:50:0023[facility] HermannCHEM WMQAL5910-05-11 10:50:24670 [facility]annCHEM CUPRJ7144-84-10 10:50:003.1[facility] HermannCHEM PANEL 2019-01-23 10:50:23793Gsxeovlp HermannCHEM CTYUM6431-40-22 10:50:005[facility] HermannCHEM FVAWM3413-93-09 10:50:000.50[facility] HermannCHEM MODVH5162-04-83 10:50:007.8[facility] HermannCHEM AKKYC1810-80-98 10:50:0083[facility] HermannCHEM SXRVS5300-63-27 10:50:0010.1[facility] AmfllraXEOTYYTMNV9212-81-58 10:50:000.2 [facility] UfkihafFXLSHHQYCU0339-38-84 10:50:000.8[facility] HermannHEMATOLOGY 2019-01-23 10:50:005.5[facility] ZajytlmYESWETZAQR2024-25-85 10:50:002.2[facility] MqyummpURRNAMTERQ4259-58-26 10:50:000.1[facility] YavjauiAWNAVWCNZM6928-44-27 10:50:0063.6[facility] GuiqnkhJZHHTHCVER3701-51-39 10:50:008.9[facility] SBACBUZCAW2926-79-60 10:50:002.3[facility] JgiffaqCLZQIMPAID5787-91-54 10:50:00 Normal (01/23/19 5:50 AM)[facility] TlqvrozTTRDMZNVQJ4211-28-38 10:50:00Normal (01/23/19 5:50 AM)[facility] SoecfbzFQMJRLVRQY8182-32-37 10:50:0025.1[facility] RejstrnFUQPCHQQUJ2819-08-31 10:50:0013.1[facility] AuolmnxMLRBEXZHLK2250-51-72 10:50:68465Nrkexwaj FzhkjalGUBTLWQWXM5476-13-72 10:50:007.7[facility] BZFRRUNNFT8957-21-72 10:50:008.6[facility] SweexutETPDTAVCDU9570-91-36 10:50:00 10.0[facility] XsgwareIETUQAZLIN5821-67-42 10:50:0034.6[facility] HermannHEMATOLOGY 2019-01-23 10:50:0028.7[facility] RzjwqcyKMRRHEIEMB2328-69-35 10:50:0087.8[facility] UbszxpnEPLFLCSHSF9159-71-48 10:50:00 Test Item Value Reference Range Interpretation Comments MCH (test code = MCH) 30.4 pg 27.0-31.0 [facility] AmwkzkuSXUPKAZMSI1373-83-07 10:50:003.27[facility] HermannCHEM PANEL 2019-01-23 10:50:002.0[facility] HermannCHEM XRBZA5112-49-02 10:50:23968Dphfutjb HermannCHEM ADKLN0221-15-60 10:50:0023[facility] HermannCHEM YOTEI7316-31-53 10:50:20967Zjfdiovt HermannCHEM NMIHN6084-09-56 10:50:003.1[facility] HermannCHEM ZMLCE0123-21-28 10:50:60718Hzqqenlr HermannCHEM EGGDV8959-04-96 10:50:005 [facility]annCHEM HAQLB0176-37-30 10:50:000.50[facility] HermannCHEM PANEL 2019-01-23 10:50:007.8[facility] HermannCHEM ARCJK3518-86-07 10:50:0083[facility]annCHEM KCXHJ4909-32-83 10:50:0010.1[facility] WtnctbfBWGLDNKXWD1149-92-06 10:50:000.2[facility] VmzrilbDXXWBNOWBY9739-88-72 10:50:000.8[facility] BGYXGOLPWO9426-85-27 10:50:005.5[facility] YuxnxbqVVTFKFALOI8725-08-30 10:50:002.2 [facility] XtbaifyTACYHOLMWA5065-96-55 10:50:000.1[facility] HermannHEMATOLOGY 2019-01-23 10:50:0063.6[facility] HfvypcbQXIZBCQJZJ1113-63-61 10:50:49265Dzbmtuku ThlolpdIPTMPVCMOD2802-83-37 10:50:008.9[facility] KopjdocQKRMXQFSXE5290-15-65 10:50:002.3[facility] EnuuwevBCYRQLOLUH5416-86-33 10:50:00Normal (01/23/19 5:50 AM) [facility] RpmwxlaHQGTITCWYB8922-33-93 10:50:00Normal (01/23/19 5:50 AM)[facility] SbrckesLIOKYBVCHL1982-31-01 10:50:007.7[facility] NyaozhgHWGQAWUGSH5681-65-61 10:50:0025.1[facility] XbchsciJSJVPAXHLE3658-51-75 10:50:0013.1[facility] HRECPQSQCP8326-06-06 10:50:008.6[facility] FvvbjkaNQAIWLPCVB0615-90-13 10:50:00 10.0[facility] MlvybapRKARSVQLBK4287-33-67 10:50:0034.6[facility] HermannHEMATOLOGY 2019-01-23 10:50:0028.7[facility] QmxpbwjBLMDREOIXV0925-50-34 10:50:0087.8[facility] CxwxyesAHMMTAIKBM1598-96-07 10:50:00 Test Item Value Reference Range Interpretation Comments MCH (test code = MCH) 30.4 pg 27.0-31.0 [facility] NxerzvpXMPYIAFWRL1561-75-18 10:50:003.27[facility] HermannCHEM PANEL 2019-01-22 11:32:002.4[facility] HermannCHEM ITQYB0023-14-58 11:32:002.4[facility] HermannCHEM XTPTR8212-07-77 09:04:003.0[facility]annCHEM QNNDV7426-81-03 09:04:003.0[facility]annURINE AND MAGBH2938-44-36 07:14:00 Test Item Value Reference Range Interpretation Comments UA Spec Grav (test code = UA Spec 1.014 1 Grav) [facility] XLPEG8561-24-40 07:14:00 Test Item Value Reference Range Interpretation Comments UA pH (test code = UA pH) 6.0 1 5.0-8.0 [facility] WVOMI9819-29-00 07:14:00Negative (01/22/19 2:14 AM) [facility] IXXAR9994-77-10 07:14:00Negative *NA*(01/22/19 2:14 AM) [facility] IXOTF7085-77-82 07:14:00Negative *NA*(01/22/19 2:14 AM) [facility] PVUYU7787-00-64 07:14:00Negative *NA*(01/22/19 2:14 AM) [facility] AYCGW2988-42-50 07:14:00Negative (01/22/19 2:14 AM) [facility] TJXVA6163-89-16 07:14:00Negative (01/22/19 2:14 AM) [facility] YWCQK2450-57-07 07:14:00Negative (01/22/19 2:14 AM) [facility] TZZEJ4849-85-49 07:14:00<1[facility] AND QQKKV2505-91-45 07:14:0025[facility] AND WKAMC8866-97-64 07:14:002 [facility] YZUKY5653-96-75 07:14:00Light Yellow *NA*(01/22/19 2:14 AM)[facility] RQUDB2273-58-80 07:14:00Clear (01/22/19 2:14 AM) [facility] XVDRX8636-18-76 07:14:00 Test Item Value Reference Range Interpretation Comments UA Spec Grav (test code = UA Spec 1.014 1 Grav) [facility] IGCAB0711-83-12 07:14:00 Test Item Value Reference Range Interpretation Comments UA pH (test code = UA pH) 6.0 1 5.0-8.0 [facility] MDRVK5410-76-83 07:14:00Negative (01/22/19 2:14 AM) [facility] KPMWQ2523-91-86 07:14:00Negative *NA*(01/22/19 2:14 AM) [facility] SCCHD4489-16-54 07:14:00Negative *NA*(01/22/19 2:14 AM) [facility] WMDAX3445-22-16 07:14:00Negative *NA*(01/22/19 2:14 AM) [facility] HTDMS5961-84-68 07:14:00Negative (01/22/19 2:14 AM) [facility] VMJPY0224-82-15 07:14:00Negative (01/22/19 2:14 AM) [facility] QBRJD5107-93-98 07:14:00Negative (01/22/19 2:14 AM) [facility] LHBNJ9881-31-79 07:14:00<1[facility] LJFCW0623-01-55 07:14:0025[facility] OSKGC4135-45-72 07:14:002 [facility] PKQJJ3832-00-71 07:14:00Light Yellow *NA*(01/22/19 2:14 AM)[facility] ZIGBU0953-20-92 07:14:00Clear (01/22/19 2:14 AM) [facility] TacfizhKFBDK3109-13-10 05:16:000.90[facility] YclirgwJJGYP4172-46-01 05:16:000.90[facility] HermannBLOOD BANK DJSAGRK6407-69-59 05:01:00Negative (01/22/19 12:01 AM)[facility] HermannCARDIAC JHJXTTO8965-34-89 05:01:00<0.02 [facility]annCARDIAC FEOSLQI0982-30-05 05:01:0049[facility] HermannCHEM PANEL 2019-01-22 05:01:000.6[facility] HermannCHEM MPPRB1017-23-14 05:01:10015Alkwdfnz HermannCHEM TIZRI9457-31-16 05:01:004.0[facility] HermannCHEM GWUZI6749-63-35 05:01:0017[facility] HermannCHEM KELSZ4865-99-51 05:01:0025[facility]annCHEM HMTCM3328-76-25 05:01:008.1[facility] HermannCHEM LNODV4561-08-54 05:01:00 Test Item Value Reference Range Interpretation Comments B/C Ratio (test code = B/C Ratio) 20 1 6-25 [facility]annCHEM FKDJQ4865-81-82 05:01:00 Test Item Value Reference Range Interpretation Comments A/G Ratio (test code = A/G Ratio) 1.0 1 0.7-1.6 [facility]CHE[facility] KXHCG7576-21-30 05:01:004.1[facility] HermannCHEM PANEL 2019-01-22 05:01:006.90[facility] XlobbtaFVHQLPVHQPHAY3413-54-46 05:01:00Negative *NA*(01/22/19 12:01 AM)[facility] MoemhmlMOSAQDHPFJ2249-00-49 05:01:000.1[facility] XbppygtKWKPLNBBHB2042-85-17 05:01:000.7[facility] TpyhoujZPTEDXGTIL3412-43-84 05:01:000.0[facility] EccedyoBVFKOSHRIN3467-40-51 05:01:000.0[facility] RHHFRZYFTU0522-92-88 05:01:000.9[facility] ZpuaufnQHXRRJIPYV3852-78-81 05:01:008.6 [facility] PtiqelbXRNJVOWXEV0677-41-96 05:01:000.6[facility] HermannHEMATOLOGY 2019-01-22 05:01:0086.5[facility] AhmxqjeOMGOGWUQSW2132-74-08 05:01:005.7[facility] OdtjxtxUVBEWSMEIF1198-99-26 05:01:006.9[facility] WwgmvowLMDSBYLGVQ5353-61-18 05:01:009.9[facility] JqnqjftZUVYPSLHKY4791-01-67 05:01:0032.8[facility] ZRAZZRKLGC9614-74-90 05:01:0013.6[facility] JmvihkeNIWSBKIPCW1344-89-66 05:01:00 443[facility] GjhmhzhHUUKZFSGQB2203-29-38 05:01:007.3[facility] HermannHEMATOLOGY 2019-01-22 05:01:0014.0[facility] PfwifbxHFXVGQYKBK2006-66-34 05:01:004.85[facility] AsjnwokRKYOLJLJAA2576-37-23 05:01:0042.7[facility] ZymydojTVBRQPBZCZ0720-85-60 05:01:00 Test Item Value Reference Range Interpretation Comments MCH (test code = MCH) 29.0 pg 27.0-31.0 [place] NunwqgbYPJHPPXUYJ0942-00-38 05:01:0088.2[facility] HermannHEMATOLOGY 2019-01-22 05:01:00 Test Item Value Reference Range Interpretation Comments INR (test code = INR) 0.96 1 0.85-1.17 [facility]OYFRJFYQUY6878-30-41 05:01:00 Test Item Value Reference Range Interpretation Comments PT (test code = PT) 12.6 s 12.0-14.7 [facility]leOpyxzpkHMFIPPMJOM9420-28-89 05:01:00 Test Item Value Reference Range Interpretation Comments PTT (test code = PTT) 25.9 s 22.9-35.8 [place] HermannBLOOD BANK LGXFHCQ5246-34-22 05:01:00Negative (01/22/19 12:01 AM) [facility]annCARDIAC BGBXBHG2038-28-16 05:01:00<0.02[facility] CARDIAC GTYSMGS1071-12-68 05:01:0049[facility] HermannCHEM VTGDP1268-33-28 05:01:000.6[facility] HermannCHEM RMHTZ9071-54-41 05:01:04478Sqjsywzy HermannCHEM TPZDL1339-07-82 05:01:004.0[facility] HermannCHEM ZRHEF1520-82-01 05:01:0017 [facility]annCHEM YXZTE8503-81-26 05:01:0025[facility] HermannCHEM PANEL 2019-01-22 05:01:008.1[facility] HermannCHEM RTAHN9670-30-91 05:01:00 Test Item Value Reference Range Interpretation Comments B/C Ratio (test code = B/C Ratio) 20 1 6-25 [facility]annCHEM UNBIB9436-53-58 05:01:00 Test Item Value Reference Range Interpretation Comments A/G Ratio (test code = A/G Ratio) 1.0 1 0.7-1.6 [facility]annCHEM TCVHP7900-63-42 05:01:004.1[facility] HermannCHEM PANEL 2019-01-22 05:01:006.90[facility] OcyzbynWSWHHBILZRGZS5673-13-02 05:01:00Negative *NA*(01/22/19 12:01 AM)[facility] NxdrcuiIAMEPPQTQG2802-07-78 05:01:000.1[facility] FzpmmoaBIAMBMEGAJ4237-41-58 05:01:000.7[facility] TweaqduFXNAGRRFXG6127-94-90 05:01:000.0[facility] NhoqvenGSGBMMHQXV8999-14-80 05:01:000.0[facility] VGXZRKEPXF7806-11-07 05:01:000.9[facility] QwpzkzfGTUWYKMUFF5277-14-74 05:01:008.6 [facility] VouxpsqGLNFDXGRSY7559-76-38 05:01:000.6[facility] HermannHEMATOLOGY 2019-01-22 05:01:0086.5[facility] TymirfgFUPDIOUFEU1479-44-27 05:01:005.7[facility] SkuaiwuUTRKWBFQLH8642-63-84 05:01:006.9[facility] SgvaggsBMHXYQLCWO3461-95-37 05:01:009.9[facility] GhwmssmNXXQGZEZTN6254-24-13 05:01:0032.8[facility] YAXXALCYLF9518-03-65 05:01:0013.6[facility] NacsjhqSYZWGENVIZ4912-64-20 05:01:00 443[facility] YlrfbfbCIGNZSQAFJ9787-51-79 05:01:007.3[facility] 2019-01-22 05:01:0014.0[facility] FhgwwqlSYLEUTEWCY9411-22-85 05:01:004.85[facility] MpenbcoIEBQWVWBYD6619-92-27 05:01:0042.7[facility] MxnoifbHOOUYUBQOL3388-58-77 05:01:00 Test Item Value Reference Range Interpretation Comments MCH (test code = MCH) 29.0 pg 27.0-31.0 [facility]QPZJGXLQK6964-13-68 05:01:0088.2[facility]worthHEMATOLOGY 2019-01-22 05:01:00 Test Item Value Reference Range Interpretation Comments INR (test code = INR) 0.96 1 0.85-1.17 [facility]ixATEWVPODDW8425-66-02 05:01:00 Test Item Value Reference Range Interpretation Comments PT (test code = PT) 12.6 s 12.0-14.7 [facility]WestDgymvudQCINRUMSCE6433-88-95 05:01:00 Test Item Value Reference Range Interpretation Comments PTT (test code = PTT) 25.9 s 22.9-35.8 [facility]qeavRKM8Z7331-55-33 14:36:00 Test Item Value Reference Range Interpretation [...] 0.00-0.01 N code = ETOHU) Comprehensive Metabolic Gxskp8691-47-83 14:36:00 Test Item Value Reference Range Interpretation [...] the National Kid[employer] Foundation,http ://nkd ep.nih.gov Urinalysis Fsrbyheb1158-56-85 14:32:00 Test Item Value Reference Range Interpretation Comments Color (test code = COLOR) Yellow Yellow,Straw,Pl N yellow Clarity (test code = Clear Clear N CLAR) Specific [place] (test 1.024 1.001-1.035 N code = SPGR) [...] code = Few /HPF BACT) CBC with Fhdojtpythwu2498-38-55 14:21:00 Test Item Value Reference Range Interpretation [...] code = ALYMPH) 3.0 K/cumm 0.5-4.6 N [place] Abs (test code = AMONO) 0.5 K/cumm 0.0-1.2 N Eos Abs (test code = AEOS) 0.19 K/cumm 0.00-0.74 N [place] Abs (test code = ABASO) 0.1 K/cumm 0.00-0.21 N
[2021-11-25] MEDS ORDERED: ACETAMIN/CAFFEINE/BUTALB TAB PO ONE (12:11)
[2021-11-25] MEDS ORDERED: ONDANSETRON 4 MG (ODT) TAB ONE (12:12)
--- NOTE | 2021-11-25 12:14 | EDPHYS ---
Physician Documentation [facility] Name: Tiffany Quinn Age: 51 yrs Sex: Female : 1970 Arrival Date: 11/25/2021 Time: 11:43 Bed 6 Private MD: ED Physician Manuel Ward HPI: 11/25 12:06 This 51 yrs old Female presents to ER via Ambulatory with complaints of rn Headache, Nausea. 12:06 The patient complains of pain to the top of head. The patient describes the headache as rn aching. Onset: The symptoms/episode began/occurred yesterday. Associated signs and symptoms: Pertinent positives: nausea, Pertinent negatives: fever, neck stiffness. Severity of symptoms: At its worst the pain was moderate, in the emergency department the pain is unchanged. Headache History: The patient has had previous headaches and this one is similar to previous episodes. The symptoms are alleviated by nothing. the symptoms are aggravated by nothing. The patient has experienced similar episodes in the past, chronically. The patient has been recently seen at the [facility] Emergency Department. Patient was seen here yesterday for headache. [facility] headache is not better. No new symptoms compared to previous. No fever. No head injury. [facility] cannot afford prescriptions so has to come back in for medication. [facility] has seen neurology and is even had an MRI.. 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 - Social history:: Smoking status: Patient denies any tobacco usage or history of. - Family history:: not pertinent. - Hospitalizations: : No recent hospitalization is reported. ROS: 12:06 Constitutional: Negative for fever, chills, and weight loss, Eyes: Negative for injury, rn pain, redness, and discharge, Neck: Negative for injury, pain, and swelling, Cardiovascular: Negative for chest pain, palpitations, and edema, Respiratory: Negative for shortness of breath, cough, wheezing, and pleuritic chest pain, Abdomen/GI: Positive for nausea Back: Negative for injury and pain, : Negative for injury, bleeding, discharge, and swelling, MS/Extremity: Negative for injury and deformity, Skin: Negative for injury, rash, and discoloration, Neuro: Positive for headache Exam: 12:06 Constitutional: This is a well developed, well nourished patient who is awake, alert, rn and in no acute distress. Head/Face: Normocephalic, atraumatic. Eyes: Pupils equal round and reactive to light, extra-ocular motions intact. Lids and lashes normal. Conjunctiva and sclera are non-icteric and not injected. Cornea within normal limits. Periorbital areas with no swelling, redness, or edema. Cardiovascular: Regular rate and rhythm. No pulse deficits. Respiratory: No increased work of breathing, no retractions or nasal flaring. Abdomen/GI: Soft, non-tender Skin: Warm, dry with normal turgor. Normal color with no rashes, no lesions, and no evidence of cellulitis. MS/ Extremity: Pulses equal, no cyanosis. Neurovascular intact. Full, normal range of motion. Equal circumference. Neuro: Awake and alert, GCS 15, oriented to person, place, time, and situation. Cranial nerves II-XII grossly intact. Motor strength 5/5 in all extremities. Sensory grossly intact. Cerebellar exam normal. Normal gait. Vital Signs: 11:45 BP 126 / 89; Pulse 95; Resp 17 S; Pulse Ox 99% on R/A; jg9 11:51 BP 126 / 89; Pulse 98; Resp 18; Pulse Ox 100% on R/A; Weight 72.03 kg; Height 5 ft. 3 ww in. (160.02 cm); Pain 6/10; 12:00 BP 112 / 86; Pulse 96; Resp 17 S; Pulse Ox 96% on R/A; jg9 11:51 Body Mass Index 28.13 (72.03 kg, 160.02 cm) ww [place] Coma Score: 12:06 Eye Response: spontaneous(4). Verbal Response: oriented(5). Motor Response: obeys rn commands(6). Total: 15. MDM: 11:54 Patient medically screened. rn 12:06 Differential diagnosis: migraine. Data reviewed: vital signs, nurses notes, old medical rn records, and as a result, I will discharge patient. Counseling: I had a detailed discussion with the patient and/or guardian regarding: the historical points, exam findings, and any diagnostic results supporting the discharge/admit diagnosis, the need for outpatient follow up, to return to the emergency department if symptoms worsen or persist or if there are any questions or concerns that arise at home. 12:06 Special discussion: I discussed with the patient/guardian in detail that at this point rn there is no indication for admission to the hospital. It is understood, however, that if the symptoms persist or worsen the patient needs to return immediately for re-evaluation. Based on the history and exam findings, there is no indication for further emergent testing or inpatient evaluation. I discussed with the patient/guardian the need to see the neurologist for further evaluation of the symptoms. Administered Medications: 12:11 Drug: Fioricet - Esgic 325 mg-40 mg-50 mg 1 tab-caps Route: PO; jg9 12:14 Follow up: Response: No adverse reaction; Medication administered at discharge. jg9 12:11 Drug: Zofran (Ondansetron) 4 mg Route: PO; jg9 12:14 Follow up: Response: No adverse reaction; Medication administered at discharge. jg9 Disposition Summary: 11/25/21 12:08 Discharge Ordered Location: Home rn Problem: new rn Symptoms: have improved rn Condition: Stable rn Diagnosis - Migraine, unspecified, not intractable, without status migrainosus rn Followup: rn - With: Private Physician - When: As needed - Reason: Recheck today's complaints, Re-evaluation by your physician Discharge Instructions: - Discharge Summary Sheet rn - Migraine Headache rn - Recurrent Migraine Headache rn Forms: - Medication Reconciliation Form rn - Thank You Letter rn - Antibiotic unpaid intern - Prescription Opioid Use rn Signatures: Manuel Ward MD MD rn Gilmore, Jennifer, RN RN jg9 Roxana Young RN RN ww
--- NOTE | 2021-11-25 12:15 | ER ---
Nurse's Notes [facility] Name: Tiffany Quinn Age: 51 yrs Sex: Female : 1970 Arrival Date: 11/25/2021 Time: 11:43 Bed 6 Private MD: Diagnosis: Migraine, unspecified, not intractable, without status migrainosus Presentation: 11/25 11:51 Chief complaint: Patient states: Headache, nausea and vomiting. Was seen here yesterday ww and given a RX for Phenergan but she states it is not helping. She is anxious, her mother passed Wednesday and she has been having to report her to the budget technician and the DA. Coronavirus screen: Vaccine status: Patient reports receiving the 2nd dose of the covid vaccine. Client denies travel out of the [place] in the last 14 days. Ebola Screen: Patient negative for fever greater than or equal to 101.5 degrees Fahrenheit, and additional compatible Ebola Virus Disease symptoms Patient denies exposure to infectious person. Patient denies travel to an Ebola-affected area in the 21 days before illness onset. Initial Sepsis Screen: Does the patient meet any 2 criteria? No. Patient's initial sepsis screen is negative. Does the patient have a suspected source of infection? No. Patient's initial sepsis screen is negative. Risk Assessment: Do you want to hurt yourself or someone else? Patient reports no desire to harm self or others. Onset of symptoms is unknown. 11:51 Method Of Arrival: Ambulatory 11:51 Acuity: MANUEL 5 Triage Assessment: 11:54 Headache History: The patient has had previous headaches and this one is similar to previous episodes. General: Appears in no apparent distress. Behavior is cooperative, anxious. Pain: Complains of pain in face and scalp Pain currently is 7 out of 10 on a pain scale. Pain began gradually, Also complains of nausea. EENT: No signs and/or symptoms were reported regarding the EENT system. Neuro: Level of Consciousness is awake, alert, obeys commands, Oriented to person, place, time, situation, Speech is normal. Cardiovascular: Patient's skin is warm and dry. Respiratory: Airway is patent Respiratory effort is even, unlabored, Respiratory pattern is regular, symmetrical. GI: Reports nausea, vomiting. Derm: Skin is intact. 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 - Social history:: Smoking status: Patient denies any tobacco usage or history of. - Family history:: not pertinent. - Hospitalizations: : No recent hospitalization is reported. Screenin:56 Abuse screen: Denies threats or abuse. Denies injuries from another. Nutritional ww screening: No deficits noted. Tuberculosis screening: No symptoms or risk factors identified. Fall Risk None identified. Vital Signs: 11:45 BP 126 / 89; Pulse 95; Resp 17 S; Pulse Ox 99% on R/A; jg9 11:51 BP 126 / 89; Pulse 98; Resp 18; Pulse Ox 100% on R/A; Weight 72.03 kg; Height 5 ft. 3 ww in. (160.02 cm); Pain 6/10; 12:00 BP 112 / 86; Pulse 96; Resp 17 S; Pulse Ox 96% on R/A; jg9 11:51 Body Mass Index 28.13 (72.03 kg, 160.02 cm) ww [place] Coma Score: 12:06 Eye Response: spontaneous(4). Verbal Response: oriented(5). Motor Response: obeys rn commands(6). Total: 15. ED Course: 11:43 Patient arrived in ED. as 11:49 Tiffany Nuno, RN is Primary Nurse. jg9 11:54 Triage completed. ww 11:54 Manuel Ward MD is Attending Physician. rn 11:54 Arm band placed on right wrist. ww 12:00 Patient has correct armband on for positive identification. Bed in low position. Call jg9 light in reach. Side rails up X 1. 12:13 No apparent distress. Resting quietly. jg9 12:14 No provider procedures requiring assistance completed. jg9 12:14 Patient did not have IV access during this emergency room visit. jg9 Administered Medications: 12:11 Drug: Fioricet - Esgic 325 mg-40 mg-50 mg 1 tab-caps Route: PO; jg9 12:14 Follow up: Response: No adverse reaction; Medication administered at discharge. jg9 12:11 Drug: Zofran (Ondansetron) 4 mg Route: PO; jg9 12:14 Follow up: Response: No adverse reaction; Medication administered at discharge. jg9 Outcome: 12:08 Discharge ordered by . rn 12:26 Discharged to home ambulatory. jg9 12:26 Condition: stable 12:26 Discharge instructions given to Instructed on discharge instructions, Demonstrated understanding of instructions, follow-up care. 12:26 Patient left the ED. jg9 Signatures: Jewels Briggs Roman, MD MD rn Gilmore, Jennifer, RN RN jg9 Roxana Young RN RN ww
[2021-11-25 12:56] VITALS: BP 112/86; O2SAT 96
== END 2021-11-25 12:26 | disposition home or self-care (01) ==
LOC: ER 11:41
DX: G43.009 Migraine without aura, not intractable, without status migrainosus (principal); Z88.5 Allergy status to narcotic agent; Z88.8 Allergy status to other drugs, medicaments and biological substances
CPT/HCPCS: 99283

== ENCOUNTER 2021-12-06 02:28 | Emergency (ER) | payer OTHER ==
--- OUTSIDE RECORDS SUMMARY | 2021-12-06 02:37 | XMS REPORT | Continuity of Care Document ---
:1970 Author Organization [facility] t Address [address] [place] [address] Care Team Providers Name Role Phone Kelly KNAPP Primary Care Physician Unavailable Chente Attending Clinician [...] Number Effective Date Expiration Date S nasim [facility] [place] - [id number] 2020 [employer] 00:00:00 (MEDICARE REPLACEMENT/ADVANT AGE - HMO) Problems Condition Condition Condition Status Onset Resolution Last Treating Co mments Source Name Details Category Date Date Treatment Clinician Date LOW PB Diagnosis Active 2019-01-22 Mem oria 01-21 01:52:00 l LOW PB 00:00: Yonis 00 Active 01/21/2019 [facility] INFECTIOUS Diagnosis Active 2019-02-06 Memoria GASTROENTE 01-21 08:58:00 l RITIS AND 00:00: Yonis COLITIS INFECTIOUS 00 GASTROENTE RITIS AND COLITIS Active 01/21/2019 [facility] Irregular Irregular Disease Active Uni vers menstrual menstrual 8-15 ity of cycle cycle 00:00: [address] Skin Skin Disease Active Univers lesion lesion 8-15 ity of 00:00: [address] Psychiatri Psychiatri Disease Active U nivers c disorder c disorder 8-15 it y of 00:00: [address] Well woman Well woman Disease Active U nivers exam with exam with 8-15 ity of routine routine 00:00: [place] gynecologi gynecologi 00 Me dical nicky exam nicky exam Branch INFECTIOUS Diagnosis Active 2019-02-06 Memoria GASTROENTE 08:58:00 l RITIS AND Yonis COLITIS, INFECTIOUS GASTROENTE RITIS AND COLITIS, Active [facility] Allergies, Adverse Reactions, Alerts Allergy Allergy Status Severity Reaction(s) Onset Inactive Treating Comm ents Source Name Type Date Date Clinician prometha DA Active MO ANXIETY [facility] zine 1- Clear 00:00: Catherine 00 [facility] prometha DA Active U [facility] zine 7- Clear 00:00: Catherine 00 [facility] NO KNOWN Drug Active Univers ALLERGIE Class ity of S [facility] Phenerga Phenerga Active Memori a n n l [place] Phenerga Drug Active [facility] Toradol Drug Active [facility] Phenerga Drug Active [facility] Toradol Drug Active [facility] SEROquel Drug Active Moderate [facility] RisperDA Drug Active [facility] TEGretol Drug Active [facility] ZyPREXA Drug Active [facility] Toradol Drug Active [facility] Phenerga Drug Active [facility] Toradol Drug Active [facility] SEROquel Drug Active Moderate [facility] RisperDA Drug Active [facility] TEGretol Drug Active [facility] ZyPREXA Drug Active [facility] Toradol Drug Active [facility] Phenerga Drug Active [facility] Toradol Drug Active [facility] SEROquel Drug Active Moderate [facility] RisperDA Drug Active [facility] TEGretol Drug Active [facility] ZyPREXA Drug Active [facility] Toradol Drug Active [facility] Phenerga Drug Active [facility] Toradol Drug Active [facility] SEROquel Drug Active Moderate [facility] RisperDA Drug Active [facility] TEGretol Drug Active [facility] ZyPREXA Drug Active [facility] Toradol Drug Active [facility] Phenerga Drug Active [facility] Toradol Drug Active [facility] SEROquel Drug Active Moderate [facility] RisperDA Drug Active [facility] TEGretol Drug Active [facility] ZyPREXA Drug Active [facility] Phenerga Drug Active [facility] RisperDA Drug Active [facility] Toradol Drug Active [facility] Phenerga Drug Active [facility] Toradol Drug Active [facility] RisperDA Drug Active [facility] TEGretol Drug Active [facility] RisperDA Drug Active [facility] Toradol Drug Active [facility] Phenerga Drug Active [facility] Toradol Drug Active [facility] SEROquel Drug Active Moderate [facility] RisperDA Drug Active [facility] TEGretol Drug Active [facility] ZyPREXA Drug Active [facility] Toradol Drug Active [facility] Phenerga Drug Active [facility] Toradol Drug Active [facility] SEROquel Drug Active Moderate [facility] RisperDA Drug Active [facility] TEGretol Drug Active [facility] ZyPREXA Drug Active [facility] Toradol Drug Active [facility] Phenerga Drug Active [facility] Toradol Drug Active [facility] SEROquel Drug Active Moderate [facility] RisperDA Drug Active [facility] TEGretol Drug Active [facility] ZyPREXA Drug Active [facility] Phenerga Drug Active [facility] RisperDA Drug Active [facility] Phenerga Drug Active [facility] RisperDA Drug Active [facility] Toradol Drug Active [facility] Phenerga Drug Active [facility] Toradol Drug Active [facility] SEROquel Drug Active Moderate [facility] RisperDA Drug Active [facility] TEGretol Drug Active [facility] ZyPREXA Drug Active [facility] Toradol Drug Active [facility] Phenerga Drug Active [facility] Toradol Drug Active [facility] SEROquel Drug Active Moderate [facility] RisperDA Drug Active [facility] TEGretol Drug Active [facility] ZyPREXA Drug Active [facility] Toradol Drug Active [facility] Phenerga Drug Active [facility] Toradol Drug Active [facility] SEROquel Drug Active Moderate [facility] RisperDA Drug Active [facility] TEGretol Drug Active [facility] ZyPREXA Drug Active [facility] Toradol Drug Active [facility] Phenerga Drug Active [facility] Toradol Drug Active [facility] SEROquel Drug Active Moderate [facility] RisperDA Drug Active [facility] TEGretol Drug Active [facility] ZyPREXA Drug Active [facility] Toradol Drug Active [facility] Phenerga Drug Active [facility] Toradol Drug Active [facility] SEROquel Drug Active Moderate [facility] RisperDA Drug Active [facility] TEGretol Drug Active [facility] ZyPREXA Drug Active [facility] Toradol Drug Active [facility] Phenerga Drug Active [facility] Toradol Drug Active [facility] SEROquel Drug Active Moderate [facility] RisperDA Drug Active [facility] TEGretol Drug Active [facility] Drug Active [facility] Toradol Drug Active [facility] Phenerga Drug Active [facility] Toradol Drug Active [facility] SEROquel Drug Active Moderate [facility] RisperDA Drug Active [facility] TEGretol Drug Active [facility] ZyPREXA Drug Active [facility] Toradol Drug Active [facility] Phenerga Drug Active [facility] Toradol Drug Active [facility] SEROquel Drug Active Moderate [facility] RisperDA Drug Active [facility] TEGretol Drug Active [facility] Drug Active [facility] Toradol Drug Active [facility] Phenerga Drug Active [facility] Toradol Drug Active [facility] SEROquel Drug Active Moderate [facility] RisperDA Drug Active [facility] TEGretol Drug Active [facility] ZyPREXA Drug Active [facility] Phenerga Drug Active [facility] RisperDA Drug Active [facility] Toradol Drug Active [facility] Phenerga Drug Active [facility] Toradol Drug Active [facility] SEROquel Drug Active Moderate [facility] RisperDA Drug Active [facility] TEGretol Drug Active [facility] ZyPREXA Drug Active [facility] Toradol Drug Active [facility] Phenerga Drug Active [facility] Toradol Drug Active [facility] SEROquel Drug Active Moderate [facility] RisperDA Drug Active [facility] TEGretol Drug Active [facility] ZyPREXA Drug Active [facility] Toradol Drug Active [facility] Phenerga Drug Active [facility] Toradol Drug Active [facility] SEROquel Drug Active Moderate [facility] RisperDA Drug Active [facility] TEGretol Drug Active [facility] ZyPREXA Drug Active [facility] Toradol Drug Active [facility] Phenerga Drug Active [facility] Toradol Drug Active [facility] SEROquel Drug Active Moderate [facility] RisperDA Drug Active [facility] TEGretol Drug Active [facility] ZyPREXA Drug Active [facility] Toradol Drug Active [facility] Phenerga Drug Active [facility] Toradol Drug Active [facility] SEROquel Drug Active Moderate [facility] RisperDA Drug Active [facility] TEGretol Drug Active [facility] ZyPREXA Drug Active [facility] Toradol Drug Active [facility] Phenerga Drug Active [facility] Toradol Drug Active . [facility] SEROquel Drug Active Moderate [facility] RisperDA Drug Active [facility] TEGretol Drug Active [facility] ZyPREXA Drug Active [facility] Toradol Drug Active [facility] Phenerga Drug Active [facility] Toradol Drug Active [facility] SEROquel Drug Active Moderate [facility] RisperDA Drug Active [facility] TEGretol Drug Active [facility] ZyPREXA Drug Active [facility] Phenerga Drug Active [facility] RisperDA Drug Active [facility] Social History Social Habit Start Date Stop Date Quantity Comments Source History of Cigarette Smoker Universi ty of tobacco use [facility] Tobacco Comment 2-3 cigs a day Unive [facility] Exposure to Not sure [facility] SARS-CoV-2 [facility] (event) [place] Tobacco use and 2016-06-08 2016-06-[address]00 00:00:00 [facility] Alcohol intake 2016-06-08 2016-06-08 0 /d University of 00:00:00 00:00:00 [facility] Sex Assigned At [birth year] Universit y of 00:00:00 00:00:00 [facility] Smoking Status Start Date Stop Date Source Social History 2019-01-22 05:00:12 [facility] Current some day smoker 2016-06-08 00:00:00 [facility] Medications Ordered Filled Start Stop Current Ordering Indication Dosage Frequency Signature Comments Components Source Medication Medication Date Date Medication? Clinician (SIG) Name Name cefTRIAXone 2020-10- No 1000mg 1,000 mg, Univers (ROCEPHIN) 11-10 IV ity of 1,000 mg in 08:30: 08:01 [place], [place] NaCl 0.9% 00 :00 ONCE, 1 Medical (NS) 50 mL dose, On Branc h MINI-BAG Wed09/10/21 at 0230, Administer over 30 Minutes, 50 mL
Reas on for Anti-Infec tive: Documented Infection< br>Documen ngozi Infection Site: Urine<br&g t;Duration of Therapy: Other (see Comments) ondansetron 2020-10 No 4mg 4 mg, Slow Univers (ZOFRAN -10 09- IV Push, ity of (PF)) 06:45: 05:54 ONCE, 1 [place] injection 4 00 :00 dose, On Medi nicky mg Wed Branch 09/10/21 at 0045, RANDA NaCl 0.9% 2020-10 No 1000mL at 999 Uni vers (NS) bolus 11-10 mL/hr, ity of infusion 05:30: 05:30 1,000 mL, Joe as 1,000 mL 00 :00 IV Medical Infusion, Branch ONCE, 1 dose, On 09/09/21 at 2330, RANDA amoxicillin 2020-10 Yes [id number] 500mg Take 1 Univers 500 mg 11-10 capsule by ity of capsule 00:00: mouth 3 [place] 00 (three) Medical times Branch daily. ondansetron 2019-10- No 4mg 4 mg, [facility] ers (ZOFRAN-ODT 12-01- Oral, ity of ) 15:15: 14:16 ONCE, 1 [place] disintegrat 00 :00 dose, Mon Med ical ing tablet 09/30/20 at [facility] 4 mg 0915, Routine ondansetron 2019-10- No 4mg 4 mg, [facility] (ZOFRAN-ODT -05 05- Oral, ity of ) 14:30: 13:32 ONCE, 1 [place] disintegrat 00 :00 dose, Mon Med ical ing tablet 09/30/20 at [facility] 4 mg 0830, Routine ondansetron 2019-10 Yes [id number] 4mg Take 1 Univers 4 mg 2-07 tablet by ity of disintegrat 00:00: mouth [place] ing tablet 00 every 8 Medica l (eight) Branch hours as needed for Nausea and Vomiting (N/V). ondansetron 2019-10 Yes [id number] 4mg Take 1 Univers 4 mg 2-07 tablet by ity of disintegrat 00:00: mouth [place] ing tablet 00 every 8 Medica l (eight) Branch hours as needed for Nausea and Vomiting (N/V). ondansetron 2020- Yes [id number] 4mg Take 1 Univers 4 mg 2-07 tablet by ity of disintegrat 00:00: mouth [place] ing tablet 00 every 8 Medica l (eight) Branch hours as needed for Nausea and Vomiting (N/V). ondansetron 2020- Yes [id number] 4mg Take 1 Univers 4 mg 2-07 tablet by ity of disintegrat 00:00: mouth [place] ing tablet 00 every 8 Medica l (eight) Branch hours as needed for Nausea and Vomiting (N/V). ciprofloxac 2019-0 Yes 500 mg = 1 Memoria in 500 mg 4-04 tab, PO, l oral tablet 17:35: [id number], X Yonis 00 4 day, # 8 tab, 0 Refill(s) Ondansetron 2019- Yes 4 mg = 1 Me moria 4 MG Oral 4-04 tab, PO, l Tablet 17:35: Q6H, PRN Yonis [Zofran] 00 Nausea/Vom iting, # 20 tab, 0 Refill(s) tramadol 2018-0 Yes 50 mg = 1 Estrada doni [...] 4-04 tab, PO, l oral tablet 17:35: [id number], X Yonis 00 4 day, # 8 [...] -03 (Same as: l 13:26: K-Dur 20) [place] 00 "Do Not Crush" Give with food and full glass of water For patients unable to swallow tablet, dissolve in one half glass of water. Allow about 2 minutes for the tablets to disintegra te. Stir before giving to prepare slurry and administer . Please exclude Patient s with feeding tube less than 14 [place] (Dobhoff, J-tube etc) and pediatric and patients. [...] s with feeding tube less than 14 [place] (Dobhoff, J-tube etc) and pediatric and patients. Strattera No 0.5 mg/kg, Me moria 01-24 Route: PO, l 14:00: QAM, Yonis Dosing Weight 75, kg, Start date: 01/24/19 9:00:00 CDT, Duration: 30 day, Stop date: 02/22/19 9:00:00 CDT Strattera No 0.5 mg/kg, Me moria 402 Route: PO, l 14:00: QAM, [place] 00 Dosing Weight 75, kg, Start date: [...] Memoria 4- (Same as: l 15:00: Flagyl) [place] 00 Take with food/ avoid alcohol Cipro [...] PO, ONCE, l mEq oral 14:20: 0 [place] tablet, 00 Refill(s) extended release Metronidazo No 500 mg, Mem oria le 500 MG 4-01 PO, l Oral Tablet 14:20: [id number], 0 H ermann [Flagyl] 00 Refill(s) Ciprofloxac No 500 mg, Mem oria in 500 MG 4-01 PO, l Oral Tablet 14:20: [id number], 0 [place] [Cipro] 00 Refill(s) potassium Yes 40 mEq, Memor ia chloride 20 -01 PO, ONCE, l mEq oral 14:20: 0 [place] tablet, 00 Refill(s) extended release Metronidazo No 500 mg, Mem oria le 500 MG 4-01 PO, l Oral Tablet 14:20: [id number], 0 H ermann [Flagyl] 00 Refill(s) Ciprofloxac No 500 mg, Mem oria in 500 MG 4-01 PO, l Oral Tablet 14:20: [id number], 0 Yonis [Cipro] 00 Refill(s) Potassium No Notes: Memori a Chloride - (Same as: l 14:: K-Dur 20) "Do Not Crush" Give with food and full glass of water For patients unable to swallow tablet, dissolve in one half glass of water. Allow about 2 minutes for the tablets to disintegra te. Stir before giving to prepare slurry and administer . Please exclude Patient s with feeding tube less than 14 [place] (Dobhoff, J-tube etc) and pediatric and patients. Potassium No Notes: Memori a Chloride 01-23 (Same as: l : K-Dur ) Yonis 00 "Do Not Crush" Give with food and full glass of water For patients unable to swallow tablet, dissolve in one half glass of water. Allow about 2 minutes for the tablets to disintegra te. Stir before giving to prepare slurry and administer . Please exclude Patient s with feeding tube less than 14 [place] (Dobhoff, J-tube etc) and pediatric and patients. [...] tab, PO, l Tablet 21:08: BID, 0 [place] [Risperdal] 00 Refill(s) Zosyn No Notes: Memoria [...] oria 3-31 to exceed l 15:03: 400mg/day. [place] 00 (Same As: Ultram) normal No 1,000 [...] CDT Ondansetron 2018-0 No Notes: Estrada doni - (Same as: l 09:47: Kurtis) Yonis MEDICATION WASTE Product Size: 4 mg Product Wasted: ___ mg Glucagon 2018-0 No 1 mg, Memoria 01-22 Route: IM, l 09:47: Drug form: [place] 00 PDR/INJ, PRN, Dosing Weight 75.994, kg, PRN Blood Glucose Results, Start date: 01/22/19 4:47:00 CDT, Duration: 30 day, Stop date: 02/21/19 4:46:00 CDT Dextrose No 12.5 gm, Memor ia 50% Syringe 3-31 25 mL, l 09:47: Route: [place] 00 IVP, Drug Form: INJ, Dosing Weight [...] moria IV 3-31 1,000 l 05:44: ml/hr, [place] 00 Infuse Over: 1 hr, Route: IV, 1,000, Drug form: INJ, ONCE, Priority: STAT, Dosing Weight 75.994 kg, Start date: 01/22/19 0:44:00 CDT, Stop date: 01/22/19 0:44:00 CDT Zofran No Notes: Memoria 3-31 (Same as: l 04:52: Zofran) Yonis 00 MEDICATION WASTE Product Size: 4 mg Product Wasted: ___ mg Saline No Notes: Memoria Flush 0.9% 3-31 Same as: l 04:52: BD [place] 00 Posiflush Sterile Zofran No Notes: Memoria 3-31 (Same as: l 04:52: Zofran) Yonis 00 MEDICATION WASTE Product Size: 4 mg Product Wasted: ___ mg Saline No Notes: Memoria Flush 0.9% 3-31 Same as: l 04:52: BD Yonis 00 Posiflush Sterile NS (Bolus) No 1,000 mL, Me moria IV 3-31 1,000 l 04:51: ml/hr, [place] 00 Infuse Over: 1 hr, Route: IV, [...] ORAL) 19:02: [place] 27 Medical Branch CITALOPRAM 2015-0 Yes Take by Uni vers HYDROBROMID 8-15 mouth. ity of E 19:02: [place] (CITALOPRAM 27 Medical ORAL) Branch ibuprofen 2016-0 Yes 200mg Take 200 Uni vers (ADVIL) 200 8-15 mg by ity of mg tablet 14:02: mouth [place] [address] every 6 Medical (six) Branch hours as needed. CLONAZEPAM 2016-0 Yes Take by Uni vers (KLONOPIN 8-15 mouth. ity of ORAL) 14:02: [place] [address] Medical Branch CITALOPRAM 2016-0 Yes Take by Uni vers HYDROBROMID 8-15 mouth. ity of E 14:02: [place] (CITALOPRAM 27 Medical ORAL) Branch ibuprofen 2016-0 Yes 200mg Take 200 Uni vers (ADVIL) 200 8-15 mg by ity of mg tablet 14:02: mouth [place] [address] every 6 Medical (six) Branch hours as needed. CLONAZEPAM 2016-0 Yes Take by Uni vers (KLONOPIN 8-15 mouth. ity of ORAL) 14:02: [place] [address] Medical Branch CITALOPRAM 2016-0 Yes Take by Uni vers HYDROBROMID 8-15 mouth. ity of E 14:02: [place] (CITALOPRAM 27 Medical ORAL) Branch ibuprofen 2016-0 Yes 200mg Take 200 Uni vers (ADVIL) 200 8-15 mg by ity of mg tablet 14:02: mouth [place] [address] every 6 Medical (six) Branch hours as needed. CLONAZEPAM 2016-0 Yes Take by Uni vers (KLONOPIN 8-15 mouth. ity of ORAL) 14:02: [address] Branch CITALOPRAM 2016-0 Yes Take [...] 2021-09-10 08:01:00 138 mm[Hg] Univer sity of [facility] Diastolic blood 2021-09-10 08:01:00 97 mm[Hg] Unive rsity of [facility] Heart rate 2021-09-10 08:01:00 87 /min [facility] Respiratory rate 2021-09-10 08:01:00 20 /min [facility] [place] [facility] O[facility] saturation in 2021-09-10 08:01:00 98 /min University of Arterial blood by [facility] Pulse oximetry Branch Body temperature 2021-09-10 04:28:[address] [facility] [place] [facility] Body height 2021-09-10 04:26:00 154.9 cm [facility] Body weight 2021-09-10 04:26:00 81.647 kg [facility] BMI 2021-09-10 04:26:00 34.01 kg/m2 [facility] Systolic blood 2021-09-09 20:06:00 150 mm[Hg] Univer [facility]ity of [facility] Diastolic blood 2021-09-09 20:06:00 89 mm[Hg] Unive rs[facility] Heart rate 2021-09-09 20:06:00 108 /min Univers ty [facility] Body temperature 2021-09-09 20:06:[address] [facility] [place] [facility] Respiratory rate 2021-09-09 20:06:00 18 /min [facility] Oxygen saturation in 2021-09-09 20:06:00 99 /min University of Arterial blood by [facility] Pulse oximetry Branch Body weight 2021-09-09 [...] 98 /min University of Arterial blood by [facility] nicky Pulse oximetry Branch Body [...] 98 /min University of Arterial blood by [facility] nicky Pulse oximetry Branch Body temperature 2020-09-30 13:26:00 37.22 Ruthann Univ ersity of [place] [facility] Respiratory rate 2020-09-30 13:26:00 16 /min Univ ers[facility] [place] [facility] Body weight 2020-09-30 13:26:00 72.576 kg [facility]i ty [facility] [place] [facility] BMI 2020-09-30 13:26:00 28.80 kg/m2 [facility] [place] [facility] Height/Length 2021-11-11 11:41:17 157.48 cm [...] orial Yonis Heart Rate 2019-01-28 01:16:00 [facility] [place] Respitory Rate 2019-01-28 01:16:00 Memori al Yonis Systolic (mm Hg) 2019-01-27 20:42:00 Estrada rial Yonis Diastolic (mm Hg) 2019-01-27 20:42:00 Mem orial [place] Heart Rate 2019-01-27 20:42:00 [facility] [place] Respitory Rate 2019-01-27 20:42:00 Memori al [place] Temperature Oral (F) 2019-01-27 20:42:00 98.5 F [facility] [place] Systolic (mm Hg) 2019-01-27 17:00:00 Estrada rial Yonis Diastolic (mm Hg) 2019-01-27 17:00:00 Mem orial Yonis Temperature Oral (F) 2019-01-27 17:00:00 98.5 F Memorial Yonis Heart Rate 2019-01-27 17:00:00 Memorial Yonis Respitory Rate 2019-01-27 17:00:00 Memori al [place] Height 2019-01-22 14:35:00 157.48 cm [facility] [place] BMI Calculated 2019-01-22 14:35:00 Memori al Yonis Weight 2019-01-22 14:35:00 Jeanne Somers Weight 2019-01-22 04:34:00 [facility] Procedure Date / Time Performing Clinician Source Performed URINALYSIS 2021-09-10 06:03:00 Neena Bradford [facility] URINE DRUG (IMMUNOASSAY) 2021-09-10 06:03:00 Neena Bradford [facility] SCREEN W/O REFLEX XR CHEST 1 VW 2021-09-10 04:57:30 Neena Bradford [facility] CREATINE KINASE 2021-09-10 04:39:00 Neena Bradford [facility] MAGNESIUM 2021-09-10 04:39:00 Neena Bradford [facility] TROPONIN I 2021-09-10 04:39:00 Neena Bradford [facility] COMP. METABOLIC PANEL 2021-09-10 04:39:00 Neena Bradford [facility] ([id number]) [facility] CBC WITH DIFF 2021-09-10 04:39:00 Neena Bradford [facility] PROTHROMBIN TIME / INR 2021-09-10 04:39:00 Neena Bradford [facility] ACTIVATED PARTIAL 2021-09-10 04:39:00 [facility] Bradford [facility]-BNP 2021-09-10 04:39:00 Neena Bradford [facility] COVID-19 (ID NOW RAPID 2021-09-10 04:39:00 Neena Bradford [facility] TESTING) [facility] TROPONIN I 2021-09-09 21:49:00 Luanne Dumont [facility] COMP. METABOLIC PANEL 2021-09-09 21:49:00 Luanne Dumont [facility] ([id number]) [facility] LITHIUM 2021-09-09 21:49:00 Luanne Dumont [facility] CBC WITH DIFF 2021-09-09 21:49:00 DumontLuanne buenrostro [facility] CONSENT/REFUSAL FOR 2021-09-09 19:51:22 Doctor Unassigned, No Un [facility] DIAGNOSIS AND TREATMENT Name Medical Branch URINALYSIS 2020-09-30 13:27:00 Chuy Jackson o f [facility] [place] ADC,CLC OR LCC ONLY - 2020-09-30 13:27:00 Chuy Jackson [facility] INFLUENZA A & B DIRECT Medical B ranch ANTIGEN COVID-19 (ID NOW RAPID 2020-09-30 13:27:00 Chuy Jackson [facility] TESTING) Medical Branch Encounters Start End Encounter Admission Attending Care Care Encounter Source Date/Time Date/Time Type Type Clinicians Facility Department ID 2020-03-04 Inpatient Ronni Eldridge [facility] PSY [id number] 15:38:00 Ronni Eldridge -[id number] [facility] 2019-01-22 Inpatient E MHSW MED 7500 MHS W 04:39:00 2021-10-25 2021-10-25 Emergency EM Ronnell, AFRICACL TERS [id number] [facility] 01:01:00 01:57:00 Lulú [id number] [facility] 2021-09-09 2021-09-10 [facility] [id number] Univers 22:20:00 03:02:00 Neena WALSH 350.1.13.10 i ty of [place] 4.2.7.2.[address] [facility] [id number] [address] 2021-09-09 2021-09-10 Emergency [facility] [id number] Univers 22:20:00 03:02:00 NEENA [facility] 2021-09-09 2021-09-10 Emergency [facility] [id number] Univers 22:20:00 03:02:00 NEENA [facility] 2021-09-09 2021-09-09 Emergency Julia [facility] [id number] Univers 14:07:00 17:35:00 Luanne WALSH 350.1.13.10 i ty of [place] 4.2.7.2.[address] [facility] [id number] [address] 2021-09-09 2021-09-09 Orders Doctor BELKYS [id number] Univers 00:00:00 00:00:00 Only Unassigned, LANA 350.1.13.10 [facility] 4.2.7.2.686 [facility] [id number] [facility] 009 Branch 2020-09-30 2020-09-30 Emergency [facility] [id number] Univers 07:22:00 08:18:00 Chuy Walsh 350.1.13.10 i ty of [place] 4.2.7.2.686 [facility] [id number] [facility] 084 Branch 2020-09-30 2020-09-30 Emergency [facility] [id number] 07:22:00 08:18:00 Chuy Walsh 350.1.13.10 [place] 4.2.7.2.686 [place] [id number] 2020-09-30 2020-09-30 Emergency X [facility] ERT [id number] Univers 07:22:00 07:22:00 CHUY [facility] 2020-04-05 2020-04-05 Outpatient Humaira-Mbayo VFP VFP [id number] [facility] 05:44:00 05:44:00 _A_AH 97283 Family Practic e 2020-04-05 2020-04-05 Outpatient Humaira-Mbayo VFP VFP [id number] [id number] [facility] 05:44:00 05:44:00 _A_AH 81894 Family Practic e 2020-04-05 2020-04-05 Outpatient Humaira-Mbayo VFP VFP [id number] [id number] [facility] 05:44:00 05:44:00 _A_AH 96847 Family Practic e 2020-04-05 2020-04-05 Outpatient Humaira-Mbayo VFP VFP [id number] [id number] [facility] 05:44:00 05:44:00 _A_AH 70289 Family Practic e 2020-03-04 2020-03-14 Inpatient 3 Ronni Eldridge [facility] PSY [id number] 15:38:00 15:25:00 Ronni Eldridge [facility] 2019-12-13 2019-12-13 Outpatient Humaira-Mbayo VFP VFP [phone] [facility] 07:22:00 07:22:00 _A_AH 96166 Family Practic e 2019-01-22 2019-01-28 Inpatient [facility] [id number] [facility] 04:33:00 04:40:00 martin Somers 00 l [place] 2018-02-21 2018-02-20 [id number] [facility] 14:48:00 13:18:00 [facility] Results Test Description Test Time Test [...] 0.1-0.8 N UA RFLX MICR CULT IF [id number] 03:42:00 Test Item Value Reference Range Interpretation [...] /HPF NONE A code = AMORU) TROPONIN-I [id number] 01:52:00 Test Item Value Reference Range Interpretation Comments TROPONIN-I RAPID 0.00 ng/mL 0.00-0.08 N Performed b y certified (test code = comb machine operator at [facility]) Med Ctr Negative: <= 0.0 8 [...] changes in trop onin levels characteristic of MO. BASIC METABOLIC [id number] 01:47:00 Test Item Value Reference Range Interpretation [...] code = POCGLU) 110 MG/DL UA DIPSTICK [id number] 01:32:00 Test Item Value Reference Range Interpretation Comments UA GLUCOSE DIPSTIC POC NEGATIVE NEGATIVE (test code = GLUUP) UA BILIRUBIN DIPSTICK NEGATIVE NEGATIVE (test code = BILU) UA KETONE DIPSTICK POC 1+ NEGATIVE A (test code = KETUP) UA SPECIFIC GRAVITY (test 1.030 1.005-1.030 N code = SGU) UA BLOOD DIPSTIC POC NEGATIVE NEGATIVE Perform ed by (test code = BLUP) certified comb machine operator at [facility] UA PH DIPSTIC POC (test 5 5.0-7.0 N code = PHUP) UA PROTEIN DIPSTICK POC NEGATIVE NEGATIVE (test code = DPROUP) UA UROBILINIOGEN QUAL NORMAL 0.2-1.0 (test code = UROQL) UA NITRITE DIPSTICK POC NEGATIVE Negative (test code = NITUP) UA LEUKOCYTE ESTERASE W 2+ NEGATIVE A REFLEX (test code = LEUUR) TROPONIN [id number] 05:26:53 Test Item Value Reference Interpretation Comments Range TROPONIN I (test 0.003 ng/mL See_Comment [Automated code = 4210420166) message] The system which generated this result [...] biotin. Lab Interpretation Normal (test code = 64380-0) [facility] [id number] 05:24:16 Test Item Value Reference Range Interpretation Comments NT-proBNP (test code 35 pg/mL See_Comment [Autom ated = 7185014581) message] The system which generated this result transmitted reference range : <=125. The reference range was not used to interpret this result as normal/abnormal . PERRY (test code = PERRY) Biotin has been reported to cause a negative bias, interpret results relative to patient's use of biotin. Lab Interpretation Normal (test code = 36670-2) [facility]2021-11-17 05:16:51 Test Item Value Reference Range Interpretation Comments MAGNESIUM (test code = 7305771097) 1.8 mg/dL 1.7-2.4 Lab Interpretation (test code = Normal 96023-4) [facility] MET[facility]OLIC PANEL (70608)2021-09-10 05:16:31 Test Item Value Reference Range Interpretation Comments NA (test code = 139 mmol/L 135-145 1976192165) K (test code = 4.0 mmol/L 3.5-5.0 4982624409) CL (test code = 108 mmol/L 98-108 2956660207) CO2 TOTAL (test code 25 mmol/L 23-31 = 6164464438) AGAP (test code = 2-16 5249920860) BUN (test code = 14 mg/dL 7-23 8916932452) GLUCOSE (test code = 88 mg/dL 70-110 1972116206) CREATININE (test code 0.89 mg/dL 0.50-1.04 = 7874798461) TOTAL BILI (test code 0.5 mg/dL 0.1-1.1 = 5007467589) CALCIUM (test code = 10.3 mg/dL 8.6-10.6 3325860398) T PROTEIN (test code 6.9 g/dL 6.3-8.2 = 4692612941) ALBUMIN (test code = 4.3 g/dL 3.5-5.0 6435884228) ALK PHOS (test code = 72 U/L 34-122 6605729915) ALTv (test code = 17 U/L 5-35 1742-6) AST(SGOT) (test code 29 U/L 13-40 = 4103080870) eGFR (test code = mL/min/1.73m2 0541041335) PERRY (test code = PERRY) Association of [...] or urine or abnormalities in imaging tests). [facility]AT[facility] [id number] 05:16:16 Test Item Value Reference Range Interpretation Comments CK (test code = 6862602129) 267 U/L 33-194 H Lab Interpretation (test code = Abnormal 68212-5) [facility]ACTIVATED PARTIAL THRMPLAS [id number] 05:05:32 Test Item Value Reference Range Interpretation [...] seconds. Lab Interpretation Normal (test code = 67006-2) [facility] CampusPROTHROMBIN TIME / [id number] 05:03:30 Test Item Value Reference Range Interpretation [...] tions. Lab Interpretation (test Normal code = 95100-7) [facility] WITH [id number] 04:57:13 Test Item Value Reference Range Interpretation Comments WBC (test code = See_Comment [Automated 1990-2) message] The sy stem which generated this [...] RDW-SD (test code = 41.2 fL 39.0-49.9 42050-4) RDW-CV (test code = 13.0 % 12.0-15.5 788-0) PLT (test code = See_Comment H [Automated 777-3) message] The sy stem which generated this result transmitted reference range : 166 - 358 10*3/ ?L. The reference r katie was not used to interpret this result as normal/abnormal . MPV (test code = 9.6 fL 9.5-12.9 40370-5) NRBC/100 WBC (test See_Comment [Automat ed code = 2883575240) message] The system which generated this result transmitted reference range : 0.0 - 10.0 /100 WBCs. The refer ence range was not u sed to interpret th is result as normal/abnormal . NRBC x10^3 (test code <0.01 See_Comment [Auto mated = 1639646533) message] The s ystem which generated this result transmitted reference range : 10*3/?L. The reference range was not used to interpret this result as normal/abnormal . GRAN MAT (NEUT) % 61.9 % (test code = 770-8) IMM GRAN % (test code 0.30 % = 0773509704) LYMPH % (test code = 26.0 % 736-9) MONO % (test code = 9.5 % 5905-5) EOS % (test code = 1.6 % 713-8) BASO % (test code = 0.7 % 706-2) GRAN MAT x10^3(ANC) 5.91 10*3/uL 1.88-7.09 (test code = 5861080824) IMM GRAN x10^3 (test 0.03 10*3/uL 0.00-0.06 code = 4349908468) LYMPH x10^3 (test code 2.48 10*3/uL 1.32-3.29 = 731-0) MONO x10^3 (test code 0.91 10*3/uL 0.33-0.92 = 742-7) EOS x10^3 (test code = 0.15 10*3/uL 0.03-0.39 711-2) BASO x10^3 (test code 0.07 10*3/uL 0.01-0.07 = 704-7) Lab Interpretation Abnormal (test code = 23476-2) [facility] CampusTROPONIN [id number] 22:24:55 Test Item Value Reference Interpretation Comments Range TROPONIN I (test 0.002 ng/mL See_Comment [Automated code = 9905635297) message] The system which generated this result [...] biotin. Lab Interpretation Normal (test code = 46528-2) [facility]2021-11-16 22:24:34 Test Item Value Reference Range Interpretation Comments [place] (test code = <0.2 0.6-1.2 L 7281786411) PERRY (test code = PERRY) Toxic Range: ? Greater than 1.2 mmol/L Lab Interpretation (test Abnormal code = 30680-9) [facility]. METABOLIC PANEL (45864)2021-09-09 22:13:54 Test Item Value Reference Range Interpretation Comments NA (test code = 139 mmol/L 135-145 6656845930) K (test code = 4.0 mmol/L 3.5-5.0 4463440025) CL (test code = 105 mmol/L 98-108 4125898638) CO2 TOTAL (test code 26 mmol/L 23-31 = 7805897134) AGAP (test code = 2-16 1642388366) BUN (test code = 11 mg/dL 7-23 3693431862) GLUCOSE (test code = 109 mg/dL 70-110 2327423061) CREATININE (test code 0.71 mg/dL 0.50-1.04 = 4548028287) TOTAL BILI (test code 0.6 mg/dL 0.1-1.1 = 0105059887) CALCIUM (test code = 10.4 mg/dL 8.6-10.6 7645517640) T PROTEIN (test code 7.6 g/dL 6.3-8.2 = 6253995721) ALBUMIN (test code = 4.7 g/dL 3.5-5.0 2383252838) ALK PHOS (test code = 78 U/L 34-122 8107552559) ALTv (test code = 19 U/L 5-35 1742-6) AST(SGOT) (test code 28 U/L 13-40 = 9690978367) eGFR (test code = mL/min/1.73m2 4340139838) PERRY (test code = PERRY) Association of [...] or urine or abnormalities in imaging tests). [facility] WITH [id number] 22:03:32 Test Item Value Reference Range Interpretation [...] RDW-SD (test code = 40.2 fL 39.0-49.9 29288-4) RDW-CV (test code = 12.9 % 12.0-15.5 788-0) PLT (test code = See_Comment H [Automated 777-3) message] The sy stem which generated this result transmitted reference range : 166 - 358 10*3/ ?L. The reference r katie was not used to interpret this result as normal/abnormal . MPV (test code = 9.4 fL 9.5-12.9 L 67806-9) NRBC/100 WBC (test See_Comment [Automat ed code = 7190600779) message] The system which generated this result transmitted reference range : 0.0 - 10.0 /100 WBCs. The refer ence range was not u sed to interpret th is result as normal/abnormal . NRBC x10^3 (test code <0.01 See_Comment [Auto mated = 9517015809) message] The s ystem which generated this result transmitted reference range : 10*3/?L. The reference range was not used to interpret this result as normal/abnormal . GRAN MAT (NEUT) % 67.1 % (test code = 770-8) IMM GRAN % (test code 1.00 % = 7416967866) LYMPH % (test code = 21.4 % 736-9) MONO % (test code = 7.9 % 5905-5) EOS % (test code = 1.8 % 713-8) BASO % (test code = 0.8 % 706-2) GRAN MAT x10^3(ANC) 7.35 10*3/uL 1.88-7.09 H (test code = 5915747753) IMM GRAN x10^3 (test 0.11 10*3/uL 0.00-0.06 H code = 9407849438) LYMPH x10^3 (test code 2.34 10*3/uL 1.32-3.29 = 731-0) MONO x10^3 (test code 0.86 10*3/uL 0.33-0.92 = 742-7) EOS x10^3 (test code = 0.20 10*3/uL 0.03-0.39 711-2) BASO x10^3 (test code 0.09 10*3/uL 0.01-0.07 H = 704-7) Lab Interpretation Abnormal (test code = 41722-6) [facility] - INFLUENZA A & B DIRECT [id number] 14:04:00 Test Item Value Reference Range Interpretation Comments Influenza A (test code = 78770-2) Negative Negative Influenza B (test code = 06015-8) Negative Negative Lab Interpretation (test code = Normal 45178-6) [facility]COVID[facility] (ID NOW RAPID TESTING)2020-09-30 14:03:00 Test Item Value Reference Range Interpretation Comments SARS-CoV-2 Rapid ID NOW Not Detected Not Detected (test code = 70633-6) PERRY (test code = PERRY) ID NOW COVID-19 Assay is an isothermal nucleic acid amplification test intended for the qualitative detection of nucleic acid from SARS-CoV-2 viral RNA in nasopharyngeal (RUSSET REPAIRER) specimens. It is used under Emergency [...] indicated. Lab Interpretation Normal (test code = 03812-9) [facility]URINALYSIS2020-12-07 13:55:00 Test Item Value Reference Range Interpretation Comments APPEARANCE (test code = Hazy Clear A 2185198123) COLOR (test code = Yellow Yellow 3562003235) PH (test code = 4.8-8.0 9535730655) SP GRAVITY (test code = 1.003-1.030 8644746228) GLU U QUAL (test code = Normal Normal 7842294985) BLOOD (test code = Negative Negative 5333767173) KETONES (test code = 5 mg/dL Negative A 9141575011) PROTEIN (test code = Negative Negative 2887-8) UROBILIN (test code = 2.0 mg/dL Normal A 1882187478) BILIRUBIN (test code = Negative Negative 1597275106) NITRITE (test code = Negative Negative 9349412111) LEUK ROZINA (test code = 25/uL Negative A 5553421618) RBC/HPF (test code = See_Comment [Autom ated message] 2497021220) The system [employer] generated this result transmit ngozi reference range : 0 - 3 HPF. The refe rence range was not u sed to interpret th is result as normal/abnormal . WBC/HPF (test code = See_Comment [Autom ated message] 1199180756) The system [employer] generated this result transmit ngozi reference range : 0 - 5 HPF. The refe rence range was not u sed to interpret th is result as normal/abnormal . BACTERIA (test code = Few Negative A 5937449137) MUCOUS (test code = Slight Negative LPF A 3676737187) SQ EPITH (test code = HPF 2305993085) Lab Interpretation (test Abnormal code = 17620-8) [facility] CampusRPR Tqcmhdogzve0440-34-98 16:42:24 Test Item Value Reference Range Interpretation [...] = 10-24-2020 N Expiration Dt) Thyroid Stimulating Quixxvi1937-86-28 08:35:16 Test Item Value Reference Range Interpretation Comments TSH (test code = TSH) 1.170 mIU/mL 0.270-4.200 Lipid Ubcsd6845-61-62 08:21:19 Test Item Value Reference Range Interpretation Comments Cholesterol Total 254 mg/dL 0-200 H RISK OF HE ART (test code = DISEASEPublishe d by Cholesterol Total) [employer] Cathie lyte Optimal Borderl ine [...] calculation is LDL/HDL Ratio=L DL Calc/HDL Chol IOLHSTCETSVK6868-89-55 08:24:008.6[facility] KtwubuiMXSXUYUCGTYT9019-48-04 08:24:98114Lfcailwk MdgnbeyUROVSBUARLSK1932-13-40 08:24:0027[facility] Yonis OOWEFCUPBUZF6079-47-89 08:24:99945Kozxwkia YqarorkQCNYDBOZTVUB9676-20-45 08:24:003.6[facility] ZtghyofHCGTQBNEIQMU3737-46-61 08:24:000.70[facility] [place] QNLIMGULJKEC2080-90-54 08:24:008.4[facility] NppdremPQJOZZCXIUVK7164-61-66 08:24:88687Havhrydq JgcibhiHQKRTIXZZSRY5933-16-84 08:24:0086[facility]is QWMXGKSWESSY5817-48-62 08:24:006[facility] GeywnefVBCJZKWCSJ4374-29-38 08:24:00 11.6[facility] GjexfpzQHQQKSLAHH3872-25-36 08:24:003.78[facility]annHEMATOLOGY 2019-01-26 08:24:0013.3[facility] ViuobwxYDFOSFISNF1670-90-17 08:24:0034.0[facility] UgornbyCRVNPJFSJD0662-90-44 08:24:006.3[facility] EixfzfkVYZIJKMQCE3053-85-77 08:24:00 Test Item Value Reference Range Interpretation Comments MCH (test code = MCH) 30.7 pg 27.0-31.0 Memorial BgqewbcWVEBZIJASW2868-72-81 08:24:0090.3[facility] HermannHEMATOLOGY 2019-01-26 08:24:0034.2[facility] GlapkdrOMHDAWKYCK3796-96-52 08:24:14486Fkbnufmt PaemfklBLJHXKJZGX1171-44-62 08:24:007.5[facility] WxorsquZTMOICIRBYTQ3140-43-26 08:24:008.6[facility] QtuivynGZYVZEJKZDUJ8358-78-98 08:24:01949Xmzcrhxm Yonis NSLRSANGJQAG1144-75-53 08:24:0027[facility] BzzgnpmVMCDYUAKLOTH7338-25-41 08:24:00 139[facility] NcbhgtqMGLIZIIETKSE0907-64-76 08:24:003.6[facility] TESNWCGXBDGE3485-46-77 08:24:000.70[facility] UuwnauiKCBMHFKSHGCT3471-96-86 08:24:008.4[facility] BcrklppCDAQMGUMUFEJ9744-38-48 08:24:52210Ijutmdhi [place] HUPADOZURSSI7995-05-45 08:24:0086[facility] GofnzcsPQOVNCNDEHPJ0986-69-45 08:24:00 6[facility] VfrptviHFDQLJAGOM4544-05-62 08:24:0011.6[facility] HermannHEMATOLOGY 2019-01-26 08:24:003.78[facility] QrpfzjtTFWRKZIKXO6394-13-24 08:24:0013.3[facility] TudtqnxBIQJUJOLOJ4154-73-98 08:24:0034.0[facility] XbwpzbmLSYQJDZZQH6303-06-74 08:24:006.3[facility] QhqplkfCALARTLMIF9470-39-65 08:24:00 Test Item Value Reference Range Interpretation Comments MCH (test code = MCH) 30.7 pg 27.0-31.0 [facility] XtyucjxPWSNTSQISQ3351-95-68 08:24:0090.3[facility]annHEMATOLOGY 2019-01-26 08:24:0034.2[facility] XelcqfnZLGEGCMQUJ8781-77-95 08:24:73264Awpsukok YxwgjxfQVFBWTBWUD3771-18-03 08:24:007.5[facility] HermannCHEM HDUUN2157-67-66 09:14:77323Absbbvak HermannCHEM MLPHB8841-33-09 09:14:008.5[facility] HermannCHEM LHTVD9691-46-37 09:14:0013.3[facility] HermannCHEM UMCRT3042-06-82 09:14:0024 [facility] HermannCHEM HYHNZ0303-24-29 09:14:87526Hgrljiwe HermannCHEM PANEL 2019-01-25 09:14:0081[facility] HermannCHEM KGMIG9896-48-55 09:14:002[facility] HermannCHEM UYOMG4841-82-34 09:14:003.3[facility] HermannCHEM MTASD8513-69-87 09:14:000.60[facility] HermannCHEM BSULM1304-09-31 09:14:61248Btrfvaeb HermannCHEM RGGUZ3788-70-75 09:14:45641Paiwffjq HermannCHEM BIQQO8434-05-23 09:14:008.5 [facility]annCHEM JYSPI0663-88-21 09:14:0013.3[facility] HermannCHEM PANEL 2019-01-25 09:14:0024[facility] HermannCHEM ENLRA8010-08-69 09:14:22794Uxqibtiy HermannCHEM UTFNT3106-17-94 09:14:0081[facility] HermannCHEM FVOWP4481-27-55 09:14:002[facility] HermannCHEM LMMOX6230-51-50 09:14:003.3[facility] HermannCHEM GLDZK1622-81-88 09:14:000.60[facility] HermannCHEM SQDXF5978-94-18 09:14:31522 [facility] HermannMOLECULAR UIOGTZXYZA9859-88-47 16:22:00Negative (01/23/19 11:22 AM)[facility] HermannMOLECULAR AVTDIWUNLW7661-91-87 16:22:00Negative (01/23/19 11:22 AM)[facility]annCHEM GRJKT4593-31-11 15:42:002.76[facility] HermannCHEM PANEL 2019-01-23 15:42:002.76[facility] HermannCHEM PALNZ3879-71-28 12:32:000.9[facility] HermannCHEM LWOQO7150-47-95 12:32:000.9[facility] HermannCHEM MCSON1980-82-42 10:50:002.0[facility] HermannCHEM GCAKT4249-87-07 10:50:93630Hvmzeosf HermannCHEM JWAKL3534-06-08 10:50:0023[facility] HermannCHEM LKNWO2725-26-86 10:50:20505 [facility]annCHEM GOXYY8341-48-27 10:50:003.1[facility] HermannCHEM PANEL 2019-01-23 10:50:64683Eenclipq HermannCHEM YDUVM2080-63-42 10:50:005[facility] HermannCHEM PRDAX8849-09-31 10:50:000.50[facility] HermannCHEM HNSXW0913-28-15 10:50:007.8[facility] HermannCHEM GFOJZ5440-25-44 10:50:0083[facility] HermannCHEM TLUBK8236-76-00 10:50:0010.1[facility] KnprhszTHMPORPETN9173-97-93 10:50:000.2 Memorial NgcrzckXPSFJSIEAM5255-74-75 10:50:000.8[facility] HermannHEMATOLOGY 2019-01-23 10:50:005.5[facility] JijbzgbKJPLKFPZXT8023-07-90 10:50:002.2[facility] SvwvbnhPIZXBSWAMH0481-78-64 10:50:000.1[facility] JopueicCMFYPYLOSZ3025-17-10 10:50:0063.6[facility] SjbvcbeKBZVOMISZP8331-83-21 10:50:008.9[facility] [place] GVKIXPDYEP9408-86-65 10:50:002.3[facility] EyajzeoRBRXAMADTK0617-55-88 10:50:00 Normal (01/23/19 5:50 AM)[facility] EjjutuzRULPSBNWTQ6127-28-15 10:50:00Normal (01/23/19 5:50 AM)[facility] EanqlbdYIEIDTXJWN8494-19-47 10:50:0025.1[facility] GtmttmjGKRDDNVIHN0433-77-44 10:50:0013.1[facility] IvsuoinPNHFEDAJVA6268-99-67 10:50:15776Fekzlqll OqcppjwJSPIHQRITM3885-52-88 10:50:007.7[facility] [place] AXMVNJAYVG4792-92-00 10:50:008.6[facility] EiglwbaHSWNZWBKQW4534-19-04 10:50:00 10.0[facility] RcxiwsbSCXOIYKBBE2307-68-38 10:50:0034.6[facility] HermannHEMATOLOGY 2019-01-23 10:50:0028.7[facility] EltkysjNOWTLTXOHG6005-34-96 10:50:0087.8[facility] UxfwfqzOVTPEIMQUH8053-38-87 10:50:00 Test Item Value Reference Range Interpretation Comments MCH (test code = MCH) 30.4 pg 27.0-31.0 [facility] KfzuofbGUXIOVUPUB2334-98-91 10:50:003.27[facility] HermannHEMATOLOGY 2019-01-23 10:50:33861Pkubterq HermannCHEM BVBXW1419-64-12 10:50:002.0[facility] HermannCHEM YEUUY9148-07-66 10:50:35033Trateojs HermannCHEM REECZ0312-43-44 10:50:0023[facility] HermannCHEM OLYZU0771-50-48 10:50:13909Urtlohuk Yonis AMZOZTGWSP7679-89-15 10:50:007.7[facility] HermannCHEM UXJNZ3576-82-98 10:50:003.1 [facility] HermannCHEM OPLLL2333-92-30 10:50:17441Hqtyngpe HermannCHEM PANEL 2019-01-23 10:50:005[facility] HermannCHEM QMWOU0722-50-61 10:50:000.50[facility]annCHEM TPCXH0570-59-59 10:50:007.8[facility]annCHEM MRSDT1058-56-34 10:50:0083[facility]annCHEM OLJZY9623-37-06 10:50:0010.1[facility] UOPMULCEPQ1711-81-94 10:50:008.6[facility] XdefcvyQRHNGAFZLO0112-49-18 10:50:000.2 [facility] DhjaxghWELVJIGWHR1687-17-96 10:50:000.8[facility] HermannHEMATOLOGY 2019-01-23 10:50:005.5[facility] OpycthtCIUPHNHBQE7783-69-14 10:50:002.2[facility] TmgdabzHLZSAAQVOU9496-98-48 10:50:000.1[facility] FlxcpfeGHEAWSLYIC6366-18-28 10:50:0063.6[facility] NnmyudqVQOQVALTSA8731-14-90 10:50:0010.0[facility] [place] CBZTKIXGJI4189-79-10 10:50:008.9[facility] IgdilcoORSETUVDKA2222-80-70 10:50:002.3 [facility] QcemyzkVAKGDKVING3919-87-60 10:50:00Normal (01/23/19 5:50 AM)[facility] OgmbfgaPZWJGCZHOU7976-61-01 10:50:00Normal (01/23/19 5:50 AM)[facility] ZORVNUVKDT9644-63-17 10:50:0025.1[facility] WttdmoqMXKOAMFIYQ2832-58-67 10:50:00 34.6[facility] HrjhmdlQTNFOQMECD9623-86-07 10:50:0013.1[facility]annHEMATOLOGY 2019-01-23 10:50:0028.7[facility] YdbbzxdNRPHDGVNBF1759-06-30 10:50:0087.8[facility] FozstlcMCBRDQNJZF2949-82-62 10:50:00 Test Item Value Reference Range Interpretation Comments MCH (test code = MCH) 30.4 pg 27.0-31.0 [facility] RrgvtuvIQIYGAVUHS5926-47-64 10:50:003.27[facility]annCHEM PANEL 2019-01-22 11:32:002.4[facility]annCHEM UAPVJ8896-19-48 11:32:002.4[facility]annCHEM OLNVR7753-97-67 09:04:003.0[facility]annCHEM RDJGM1034-49-60 09:04:003.0[facility]UR[facility] AND MDUFO7732-22-81 07:14:00 Test Item Value Reference Range Interpretation Comments UA Spec Grav (test code = UA Spec 1.014 1 Grav) [facility] DFYLI0823-44-91 07:14:00 Test Item Value Reference Range Interpretation Comments UA pH (test code = UA pH) 6.0 1 5.0-8.0 [facility] GUJNJ9951-99-75 07:14:00Negative (01/22/19 2:14 AM) [facility] DNCPC3000-99-23 07:14:00Negative *NA*(01/22/19 2:14 AM) [facility] GCYMV4555-23-22 07:14:00Negative *NA*(01/22/19 2:14 AM) [facility] MKWES2764-55-13 07:14:00Negative *NA*(01/22/19 2:14 AM) [facility] LPOTO1212-70-15 07:14:00Negative (01/22/19 2:14 AM) [facility] SGDDU5166-33-82 07:14:00Negative (01/22/19 2:14 AM) [facility] JOKVT4238-59-67 07:14:00Negative (01/22/19 2:14 AM) [facility] UTAOS5772-60-28 07:14:00<1[facility] GMFEL1680-63-83 07:14:0025[facility] JILBU2868-97-09 07:14:002 [facility] GVQEM6723-11-47 07:14:00Light Yellow *NA*(01/22/19 2:14 AM)[facility] RZYHK3580-95-26 07:14:00Clear (01/22/19 2:14 AM) [facility] AND [id number] 07:14:00 Test Item Value Reference Range Interpretation Comments UA Spec Grav (test code = UA Spec 1.014 1 Grav) [facility] [id number] 07:14:00 Test Item Value Reference Range Interpretation Comments UA pH (test code = UA pH) 6.0 1 5.0-8.0 [facility] [id number] 07:14:00Negative (01/22/19 2:14 AM) [facility] [id number] 07:14:00Negative *NA*(01/22/19 2:14 AM) [facility] [id number] 07:14:00Negative *NA*(01/22/19 2:14 AM) [facility] [id number] 07:14:00Negative *NA*(01/22/19 2:14 AM) [facility] [id number] 07:14:00Negative (01/22/19 2:14 AM) [facility] [id number] 07:14:00Negative (01/22/19 2:14 AM) [facility] PCQRK6215-94-95 07:14:00Negative (01/22/19 2:14 AM) [facility] NJYBC7397-59-25 07:14:00<1[facility] BHOYB1647-94-81 07:14:0025[facility] LZGJQ5480-39-24 07:14:002 [facility] MWPFI4207-74-67 07:14:00Light Yellow *NA*(01/22/19 2:14 AM)[facility] [id number] 07:14:00Clear (01/22/19 2:14 AM) [facility] ZkjdergIZGNM6529-61-41 05:16:000.90[facility] JizxjvjSPZDC3223-47-32 05:16:000.90[facility] IhnmwlkFKLZFMAFXT1462-77-21 05:01:000.6[facility] [place] TRJJIDFVUZ6359-08-83 05:01:0086.5[facility] KlpvsoeTEKLVKFTXW7634-44-37 05:01:00 5.7[facility] PrflhmyLRNZIEXHAS6410-10-12 05:01:006.9[facility]ann[facility]OLOGY 2019-01-22 05:01:009.9[facility] CbueoskDMGHQRVLJW5118-06-53 05:01:0032.8[facility] NhlzdggCFEUPHHTLG0311-99-47 05:01:0013.6[facility] DblnkgfNJLMGHHDKZ5559-58-20 05:01:04594Plftdtvr YgjbowvYRSXIUTAJF1328-71-09 05:01:007.3[facility] LHRGQUIOGI0557-96-84 05:01:0014.0[facility] UhmepnhEOCJTJXJTK9503-99-25 05:01:00 4.85[facility] KrcmyldJLLEIHJYJP3827-56-33 05:01:0042.7[facility] 2019-01-22 05:01:00 Test Item Value Reference Range Interpretation Comments MCH (test code = MCH) 29.0 pg 27.0-31.0 [facility] UriibgdNTNRGYNQEO9941-88-31 05:01:0088.2[facility] 2019-01-22 05:01:00 Test Item Value Reference Range Interpretation Comments INR (test code = INR) 0.96 1 0.85-1.17 [facility] LinlqvpXPVYBKYSFV2415-29-59 05:01:00 Test Item Value Reference Range Interpretation Comments PT (test code = PT) 12.6 s 12.0-14.7 [facility] KszzvojMGIKVPWOXE0837-48-18 05:01:00 Test Item Value Reference Range Interpretation Comments PTT (test code = PTT) 25.9 s 22.9-35.8 [facility] [id number] 05:01:00Negative (01/22/19 12:01 AM) [facility] VBZREWG4910-72-25 05:01:00<0.02[facility] CARDIAC GCQOAUZ7799-18-01 05:01:0049[facility]annCHE[facility] PAAUD7841-82-62 05:01:000.6[facility]annCHEM KSEYY0285-11-03 05:01:66960Krcoujku HermannCHEM SFPUN6426-09-45 05:01:004.0[facility] YSZIV3072-97-27 05:01:0017 [facility] FPANM2452-80-21 05:01:0025[facility] PANEL 2019-01-22 05:01:008.1[facility] [id number] 05:01:00 Test Item Value Reference Range Interpretation Comments B/C Ratio (test code = B/C Ratio) 20 1 6-25 [facility] [id number] 05:01:00 Test Item Value Reference Range Interpretation Comments A/G Ratio (test code = A/G Ratio) 1.0 1 0.7-1.6 [facility] [id number] 05:01:004.1[facility] PANEL 2019-01-22 05:01:006.90[facility] DhvzjxyFSYXZSIMPKLWB4363-51-10 05:01:00Negative *NA*(01/22/19 12:01 AM)[facility] UfveydxERWJEQFKBH0155-75-85 05:01:000.1[facility] FavqpatBPYSEMUTCI3844-99-00 05:01:000.7[facility] JbgduivPLBULTJGQZ2755-45-69 05:01:000.0[facility] WmrlbnwNFKKUDIBPL1434-53-95 05:01:000.0[facility] WBMAGGQXTO9055-45-03 05:01:000.9[facility] PmessnyCOBMPVGJUH8996-37-42 05:01:008.6 [facility] RhbhzctFNHIXDOGHR0247-81-94 05:01:000.6[facility]OLOGY 2019-01-22 05:01:0086.5[facility] KjfpsicKZQQKZFCSZ3665-49-51 05:01:005.7[facility] FxvtttsHEOWQFZPWE8648-44-82 05:01:006.9[facility] MzjqdqpAFEEKPXUNN6099-31-01 05:01:009.9[facility] TvocxklMHZULMXXCB4108-24-25 05:01:0032.8[facility] TQXBOGMBGE9994-98-91 05:01:0013.6[facility] TolbdorTITROFBGMP5956-08-40 05:01:00 443[facility] QkxjumrERBEMGNGIU4450-09-17 05:01:007.3[facility]HEMAT[facility]Y 2019-01-22 05:01:0014.0[facility] NlcnbbiMDGHNLOSUB9416-64-15 05:01:004.85[facility] UlhpkuoQDYFTBNGBE3063-42-51 05:01:0042.7[facility] FjditjyELCHWUUYOS3179-01-01 05:01:00 Test Item Value Reference Range Interpretation Comments MCH (test code = MCH) 29.0 pg 27.0-31.0 [facility] VqauxtfIQGVQNNRHE1030-20-13 05:01:0088.2[facility]annHEMATOLOGY 2019-01-22 05:01:00 Test Item Value Reference Range Interpretation Comments INR (test code = INR) 0.96 1 0.85-1.17 [facility] VpbnlcmDTXRPMTGSX7974-68-11 05:01:00 Test Item Value Reference Range Interpretation Comments PT (test code = PT) 12.6 s 12.0-14.7 [facility] JbxzngoDYYLNAHLEY7501-96-20 05:01:00 Test Item Value Reference Range Interpretation Comments PTT (test code = PTT) 25.9 s 22.9-35.8 [facility] OVGEBDX5140-12-49 05:01:00Negative (01/22/19 12:01 AM) [facility] YDWGCRR8257-39-18 05:01:00<0.02[facility] CARDIAC JSSIMKL9614-20-28 05:01:0049[facility]annCHEM JAHGZ9568-63-00 05:01:000.6[facility]annCHEM JYGIU9646-78-18 05:01:42792Odblqsyj HermannCHEM OUTFL7095-28-72 05:01:004.0[facility]annCHEM LKGCQ0751-22-14 05:01:0017 [facility]CHE[facility] YNXIE1601-76-28 05:01:0025[facility]annCHE[facility] PANEL 2019-01-22 05:01:008.1[facility]annCHEM IHETI1038-13-49 05:01:00 Test Item Value Reference Range Interpretation Comments B/C Ratio (test code = B/C Ratio) 20 1 6-25 [facility]annCHE[facility] FJCYL5446-53-14 05:01:00 Test Item Value Reference Range Interpretation Comments A/G Ratio (test code = A/G Ratio) 1.0 1 0.7-1.6 [facility] YBHFX2092-65-33 05:01:004.1[facility]annCHEM PANEL 2019-01-22 05:01:006.90[facility] BjxkizsIVDZEBCGRPZFL7797-34-24 05:01:00Negative *NA*(01/22/19 12:01 AM)[facility] BwsfczxOQCIZMLHJR5186-23-59 05:01:000.1[facility] EunqbptEUVCZOWIAX0008-40-22 05:01:000.7[facility] YmzjymfTPCZMORNLP5648-52-49 05:01:000.0[facility] DgjaubpBONHSANEEQ8317-28-13 05:01:000.0[facility] GSGTCVOAHS1570-93-49 05:01:000.9[facility] DmcmgkoDFZULVKLBE1594-46-58 05:01:008.6 [facility] GfkyfcnRDH3Q6311-10-11 14:36:00 Test Item Value Reference Range Interpretation [...] 0.00-0.01 N code = ETOHU) Comprehensive Metabolic Bnpnb0924-35-59 14:36:00 Test Item Value Reference Range Interpretation [...] the [employer],http ://nkd ep.nih.gov Urinalysis Fyrwkbyb0185-26-08 14:32:00 Test Item Value Reference Range Interpretation Comments Color (test code = COLOR) Yellow Yellow,Straw,Pl N yellow Clarity (test code = Clear Clear N CLAR) Specific [place] (test 1.024 1.001-1.035 N code = SPGR) [...] code = Few /HPF BACT) CBC with Mopayvxrhczn7576-10-90 14:21:00 Test Item Value Reference Range Interpretation [...] code = ALYMPH) 3.0 K/cumm 0.5-4.6 N Loving Abs (test code = AMONO) 0.5 K/cumm 0.0-1.2 N Eos Abs (test code = AEOS) 0.19 K/cumm 0.00-0.74 N Baso Abs (test code = ABASO) 0.1 K/cumm 0.00-0.21 N
[2021-12-06] MEDS ORDERED: ACETAMIN/CAFFEINE/BUTALB TAB PO ONE (04:26)
[2021-12-06] MEDS ORDERED: ONDANSETRON 4 MG (ODT) TAB ONE (04:27)
--- NOTE | 2021-12-06 05:13 | EDPHYS ---
Physician Documentation [facility] Name: Tiffany Quinn Age: 51 yrs Sex: Female : 1970 Arrival Date: 12/06/2021 Time: 02:39 Bed 13 Private MD: ED Physician David Brown HPI: 12/06 04:19 This 51 yrs old Female presents to ER via Ambulatory with complaints of Nausea, mh7 Headache. 04:19 The patient complains of pain to the top of head. The patient describes the headache as mh7 intermittent, throbbing, waxing and waning. Onset: The symptoms/episode began/occurred last night. Associated signs and symptoms: Pertinent positives: nausea, Pertinent negatives: altered mental status, dizziness, fever, malaise, neck stiffness, paresthesias, Photophobia rash, sinus congestion, sinus tenderness, vision changes, vision loss, vomiting, weakness, vertigo. Severity of symptoms: At its worst the pain was moderate, last night, in the emergency department the pain has improved, moderately. Headache History: The patient has had previous headaches and this one is similar to previous episodes. The symptoms are alleviated by nothing. the symptoms are aggravated by lights, noise, stress. The patient has experienced similar episodes in the past, chronically. 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 - Social history:: Smoking status: Patient denies any tobacco usage or history of. ROS: 04:19 Constitutional: Negative for fever, chills, and weight loss, Eyes: Negative for injury, mh7 pain, redness, and discharge, ENT: Negative for injury, pain, and discharge, Neck: Negative for injury, pain, and swelling, Cardiovascular: Negative for chest pain, palpitations, and edema, Respiratory: Negative for shortness of breath, cough, wheezing, and pleuritic chest pain. 04:19 Back: Negative for injury and pain, : Negative for injury, bleeding, discharge, and swelling, MS/Extremity: Negative for injury and deformity, Skin: Negative for injury, rash, and discoloration, Psych: Negative for depression, anxiety, suicide ideation, homicidal ideation, and hallucinations. 04:19 Allergy/Immunology: Negative for hives, rash, and allergies, Endocrine: Negative for neck swelling, polydipsia, polyuria, polyphagia, and marked weight changes, Hematologic/Lymphatic: Negative for swollen nodes, abnormal bleeding, and unusual bruising. 04:19 Abdomen/GI: Negative for abdominal pain, vomiting, diarrhea, constipation, abdominal cramps, abdominal distension, anorexia, dysphagia, hematemesis, black/tarry stool, rectal pain, rectal bleeding, bowel incontinence, flatulence. 04:19 Neuro: Negative for altered mental status, dizziness, gait disturbance, hearing loss, loss of consciousness, numbness, seizure activity, speech changes, syncope, near syncope, tingling, tinnitus, tremor, visual changes, weakness. Exam: 04:19 Constitutional: This is a well developed, well nourished patient who is awake, alert, mh7 and in no acute distress. Head/Face: Normocephalic, atraumatic. Eyes: Pupils equal round and reactive to light, extra-ocular motions intact. Lids and lashes normal. Conjunctiva and sclera are non-icteric and not injected. Cornea within normal limits. Periorbital areas with no swelling, redness, or edema. Neck: Trachea midline, no thyromegaly or masses palpated, and no cervical lymphadenopathy. Supple, full range of motion without nuchal rigidity, or vertebral point tenderness. No Meningismus. Chest/axilla: Normal chest wall appearance and motion. Nontender with no deformity. No lesions are appreciated. Cardiovascular: Regular rate and rhythm with a normal S1 and S2. No gallops, murmurs, or rubs. Normal PMI, no JVD. No pulse deficits. Respiratory: Lungs have equal breath sounds bilaterally, clear to auscultation and percussion. No rales, rhonchi or wheezes noted. No increased work of breathing, no retractions or nasal flaring. Abdomen/GI: Soft, non-tender, with normal bowel sounds. No distension or tympany. No guarding or rebound. No evidence of tenderness throughout. Back: No spinal tenderness. No costovertebral tenderness. Full range of motion. Skin: Warm, dry with normal turgor. Normal color with no rashes, no lesions, and no evidence of cellulitis. MS/ Extremity: Pulses equal, no cyanosis. Neurovascular intact. Full, normal range of motion. Neuro: Awake and alert, GCS 15, oriented to person, place, time, and situation. Cranial nerves II-XII grossly intact. Motor strength 5/5 in all extremities. Sensory grossly intact. Cerebellar exam normal. Normal gait. Psych: Awake, alert, with orientation to person, place and time. Behavior, mood, and affect are within normal limits. Vital Signs: 02:58 BP 127 / 84; Pulse 80; Resp 22; Temp 96.9(TE); Pulse Ox 99% on R/A; Weight 71.67 kg; vc1 Height 5 ft. 3 in. (160.02 cm); Pain 8/10; 04:00 BP 110 / 72; Pulse 79; Resp 18; Pulse Ox 98% on R/A; mk 04:58 BP 121 / 82; Pulse 72; Resp 18; Pulse Ox 98% on R/A; mk 02:58 Body Mass Index 27.99 (71.67 kg, 160.02 cm) vc1 Petty Coma Score: 04:00 Eye Response: spontaneous(4). Verbal Response: oriented(5). Motor Response: obeys mk commands(6). Total: 15. 04:58 Eye Response: spontaneous(4). Verbal Response: oriented(5). Motor Response: obeys mk commands(6). Total: 15. 05:11 Eye Response: spontaneous(4). Verbal Response: oriented(5). Motor Response: obeys 7 commands(6). Total: 15. MDM: 05:11 Differential diagnosis: cluster headache, migraine, tension headache. Data reviewed: [facility] vital signs, nurses notes, old medical records. Data interpreted: Pulse oximetry: on room air is 98 %. Interpretation: normal. Counseling: I had a detailed discussion with the patient and/or guardian regarding: the historical points, exam findings, and any diagnostic results supporting the discharge/admit diagnosis, the need for outpatient follow up, a neurologist, to return to the emergency department if symptoms worsen or persist or if there are any questions or concerns that arise at home. Response to treatment: the patient's symptoms have resolved after treatment, the patient's blood pressure is in an acceptable range, mental status has returned to baseline, the patient no longer shows bradycardia, the patient is not short of breath, the patient is not tachycardic, the patient's pain is gone, the patient's temperature has normalized. 05:13 Patient medically screened. [facility] Administered Medications: 04:25 Drug: Ondansetron 4 mg Route: PO; 04:25 Drug: Fioricet - Esgic 325 mg-40 mg-50 mg 1 tab-caps Route: PO; Disposition Summary: 12/06/21 05:13 Discharge Ordered Location: Home [facility] Problem: an acute exacerbation [facility] Symptoms: have improved [facility] Condition: Stable [facility] Diagnosis - Headache [facility] Followup: [facility] - With: Private Physician - When: 1 - 2 days - Reason: Worsening of condition, Recheck today's complaints, Continuance of care, Re-evaluation by your physician Followup: [facility] - With: Paul Santos MD - When: 1 - 2 days - Reason: Worsening of condition, Recheck today's complaints Discharge Instructions: - Discharge Summary Sheet [facility] - General Headache Without Cause [facility] Forms: - Medication Reconciliation Form [facility] - Thank You Letter [facility] - Antibiotic Education [facility] - Prescription Opioid Use [facility] Signatures: David Brown MD MD 7 Salima Machuca, RN RN Janie Tolliver RN RN vc1
--- NOTE | 2021-12-06 05:13 | ER ---
Nurse's Notes [facility] Name: Tiffany Quinn Age: 51 yrs Sex: Female : 1970 Arrival Date: 12/06/2021 Time: 02:39 Bed 13 Private MD: Diagnosis: Headache Presentation: 12/06 02:58 Chief complaint: Patient states: I am nauseous and have a headache I have an vc1 appointment at [facility] in January. It feels like my fingers are turned inside out. My mother two weeks ago. Coronavirus screen: Vaccine status: Patient reports receiving the 2nd dose of the covid vaccine. Pfizer At this time, the client does not indicate any symptoms associated with coronavirus-19. Ebola Screen: No symptoms or risks identified at this time. Initial Sepsis Screen: Does the patient meet any 2 criteria? RR > 20 per min. No. Patient's initial sepsis screen is negative. Does the patient have a suspected source of infection? No. Patient's initial sepsis screen is negative. Risk Assessment: Do you want to hurt yourself or someone else? Patient reports no desire to harm self or others. Onset of symptoms was December 06, 2021. 02:58 Method Of Arrival: Ambulatory vc1 02:58 Acuity: MANUEL 3 vc1 Triage Assessment: 03:01 General: Appears in no apparent distress. uncomfortable, obese, unkempt, Behavior is vc1 agitated, anxious, inappropriate for age, Smells of Urine. Pain: Complains of pain in forehead, right oriental orthodox and left oriental orthodox Pain does not radiate. GI: Reports nausea. 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 - Social history:: Smoking status: Patient denies any tobacco usage or history of. Screenin:16 Abuse screen: Denies threats or abuse. Nutritional screening: No deficits noted. mk Tuberculosis screening: No symptoms or risk factors identified. Fall Risk No fall in past 12 months (0 pts). No secondary diagnosis (0 pts). No IV (0 pts). Ambulatory Aid- None/Bed Rest/Nurse Assist (0 pts). Gait- Normal/Bed Rest/Wheelchair (0 pts) Mental Status- Oriented to own ability (0 pts). Total Ramirez Fall Scale indicates No Risk (0-24 pts). Assessment: 04:00 General: Appears unkempt, Behavior is cooperative. Pain: Complains of pain in head Pain mk currently is 9 out of 10 on a pain scale. Quality of pain is described as aching, Pain began gradually, 2-3 days ago. Is continuous, Alleviated by medications. Neuro: Level of Consciousness is awake, alert, obeys commands, Oriented to person, place, time, situation, answers questions appropriately but wandering sentences and tangential thoughts . Managing Member are equal bilaterally Gait is steady, Speech is normal, Facial symmetry appears normal, Pupils are PERRLA, Pupil Size: 4 bilaterally. Cardiovascular: Heart tones S1 S2 present Capillary refill < 3 seconds in bilateral fingers toes JVD is absent Patient's skin is warm and dry. Pulses are 3+ in right radial artery, right dorsalis pedis artery, left radial artery and left dorsalis pedis artery Rhythm is sinus rhythm. Respiratory: Airway is patent Trachea midline Respiratory effort is even, unlabored, Respiratory pattern is regular, symmetrical, Breath sounds are clear. GI: Abdomen is round non-distended, Bowel sounds present X 4 quads. Abd is soft and non tender X 4 quads. : No signs and/or symptoms were reported regarding the genitourinary system. Derm: Skin is intact, is healthy with good turgor, Skin is dry, Skin temperature is warm. Musculoskeletal: Circulation, motion, and sensation intact. Capillary refill < 3 seconds, in bilateral fingers. toes. Range of motion: intact in all extremities. 05:02 Reassessment: No changes from previously documented assessment. Patient and/or family mk updated on plan of care and expected duration. Pain level reassessed. Patient is alert, oriented x 3, equal unlabored respirations, skin warm/dry/pink. Vital Signs: 02:58 BP 127 / 84; Pulse 80; Resp 22; Temp 96.9(TE); Pulse Ox 99% on R/A; Weight 71.67 kg; vc1 Height 5 ft. 3 in. (160.02 cm); Pain 8/10; 04:00 BP 110 / 72; Pulse 79; Resp 18; Pulse Ox 98% on R/A; mk 04:58 BP 121 / 82; Pulse 72; Resp 18; Pulse Ox 98% on R/A; mk 02:58 Body Mass Index 27.99 (71.67 kg, 160.02 cm) vc1 Jovani Coma Score: 04:00 Eye Response: spontaneous(4). Verbal Response: oriented(5). Motor Response: obeys mk commands(6). Total: 15. 04:58 Eye Response: spontaneous(4). Verbal Response: oriented(5). Motor Response: obeys mk commands(6). Total: 15. 05:11 Eye Response: spontaneous(4). Verbal Response: oriented(5). Motor Response: obeys [facility] commands(6). Total: 15. ED Course: 02:39 Patient arrived in ED. wm 03:00 Pulse ox on. NIBP on. mk 03:01 Triage completed. vc1 03:01 Arm band placed on right wrist. vc1 03:21 Salima Machuca, RN is Primary Nurse. mk 03:46 David Brown MD is Attending Physician. 7 05:12 Paul Santos MD is Referral Physician. 7 05:17 Patient has correct armband on for positive identification. Placed in gown. Bed in low mk position. Call light in reach. Side rails up X 1. 05:17 No provider procedures requiring assistance completed. Patient did not have IV access mk during this emergency room visit. Administered Medications: 04:25 Drug: Ondansetron 4 mg Route: PO; mk 04:25 Drug: Fioricet - Esgic 325 mg-40 mg-50 mg 1 tab-caps Route: PO; mk Outcome: 05:13 Discharge ordered by . 7 05:17 Discharged to home 05:17 Condition: stable 05:17 Discharge instructions given to patient. 05:17 Patient left the ED. mk Signatures: David Brown MD MD [facility] Laly Lutz Salima Machuca, Janie Valdivia RN, RN RN vc1
[2021-12-06 05:28] VITALS: TEMP 96.9
[2021-12-06 05:31] VITALS: O2SAT 98
[2021-12-06 05:32] VITALS: BP 121/82
== END 2021-12-06 05:17 | disposition home or self-care (01) ==
LOC: ER 02:28
DX: R51.9 Headache, unspecified (principal)
CPT/HCPCS: 99284